=== PATIENT | female | born 1945 | race Caucasian/White ===

== ENCOUNTER 2020-07-27 10:42 | Outpatient (CLI) | payer OTHER, SELFPAY ==
--- NOTE | ~2020-07-27 | MR_ITS ---
EXAMINATION: MR lumbar spine wo con DATE: 07/27/2020 11:39 INDICATION: Low back pain. TECHNIQUE: Magnetic resonance imaging (MRI) of the lumbar spine was performed without intravenous con trast. Sequences included sagittal T2-weighted FSE, sagittal T2-weighted FS FSE, sagittal T1-weighted FSE, and axial T2-weighted FSE. COMPARISON: Lumbar spine MRI 10/25/2013 FINDINGS: There is 3 degrees dextrocurvature of lumbar spine and 6 degrees dextrocurvature of thoraco lumbar spine. There is 3 mm anterolisthesis of L4 on L5 and 3 mm retrolisthesis of L1 on L2, L2 on L3 , and L3 on L4. There is a chronic burst fracture of T11 with 3/5 loss of height and retropulsion of bone 2 mm into central spinal canal. There is moderately decreased disc height at L1-L2, L2-L3, and L 4-L5 and severely decreased disc height at L3-L4 and L5-S1. The distal spinal cord signal intensity i s normal. The conus medullaris is at T12-L1. The following disc levels are specifically discussed: L1-L2: The disc is bulging and has an annular fissure. There is mild bilateral facet joint osteoarthr itis. There is moderate right and mild left neural foraminal stenosis. There is mild central canal st enosis. L2-L3: The disc is bulging and has an annular fissure. There is moderate bilateral facet joint osteoa rthritis. There is mild right and moderate left neural foraminal stenosis. There is mild central elda l stenosis. L3-L4: The disc is bulging and has an annular fissure. There is mild right and severe left facet join t osteoarthritis. There is mild right and moderate left neural foraminal stenosis. There is mild cent ral canal stenosis. L4-L5: The disc is bulging with superimposed left subarticular extrusion with mass effect on left L5 nerve root in left lateral recess. There is severe bilateral facet joint osteoarthritis. There is mod erate bilateral neural foraminal stenosis. There is mild central canal stenosis. L5-S1: The disc is bulging and has an annular fissure. There is moderate bilateral facet joint osteoa rthritis. There is mild bilateral neural foraminal stenosis. There is no central canal stenosis with posterior decompression. IMPRESSION: 1. Worsened severe lumbar spondylosis. Of note, a new extrusion at L4-L5 exerts mass effect on left L 5 nerve root. Reviewed, dictated and finalized at location A. OM HARVESTER IMPRESSION: 1. Worsened severe lumbar spondylosis. Of note, a new extrusion at L4-L5 exerts mass effect on left L5 nerve root.
== END 2020-07-27 10:43 | disposition home or self-care (01) ==
PROVIDERS: PCP Family Medicine Adolescent Medicine; Visit Provider Orthopaedic Surgery
DX: M47.817 Spondylosis without myelopathy or radiculopathy, lumbosacral region (principal); M48.07 Spinal stenosis, lumbosacral region
CPT/HCPCS: 72148

== ENCOUNTER 2021-02-07 13:46 | Outpatient (CLI) | payer OTHER, SELFPAY ==
--- NOTE | ~2021-02-07 | DEXA_ITS ---
Bone Density Report Name: Tiera Lobato Age: 75 Sex: Female Ethnicity: White Date of : 1945 Indication: osteopenia; monitoring treatment; height loss; prior fracture; Referring Provider: Terence, Maxx Salgado Study: Bone densitometry was performed. Exam Date: February 07, 2021 Accession number: [id number] Bone Density: Region BMD T-score Z-score Classification AP Spine (L1-L4) 0.995 -0.5 1.9 Normal Femoral Neck (Left) 0.562 -2.6 -0.5 Osteoporosis Total Hip (Left) 0.639 -2.5 -0.7 Osteoporosis Total Hip Bilateral Avg 0.639 -2.5 -0.7 Osteoporosis Femoral Neck (Right) 0.591 -2.3 -0.3 Osteopenia Total Hip (Right) 0.638 -2.5 -0.7 Osteoporosis World Health Organization criteria for BMD impression classify patients as: Normal (T-score at or above -1.0), Osteopenia (T-score between -1.0 and -2.5), or Osteoporosis (T-score at or below -2.5). 10-year Fracture Risk: FRAX not reported because: Some T-score for Spine Total or Hip Total or Femoral Neck at or below -2.5 Prior hip or vertebral fracture Treated for osteopor Previous Exams: Region Exam Age BMD T-score BMD Change BMD Change Date g/cm2 vs Baseline vs Previous AP Spine(L1-L4) 02/07/2021 75 0.995 -0.5 0.065(7.0%)# 0.065(7.0%)# 04/04/2006 60 0.930 -1.1 Total Hip(Left) 02/07/2021 75 0.639 -2.5 -0.067(-9.5%)# -0.067(-9.5%)# 04/04/2006 60 0.706 -1.9 Total Hip(Right) 02/07/2021 75 0.638 -2.5 -0.080(-11.1%) -0.080(-11.1%) 04/04/2006 60 0.718 -1.8 *Denotes significance at 95% confidence level, LSC for AP Spine = 0.022 g/cm2, LSC for Total Hip = 0.027 g/cm2 Clinical Information Provided by Patient: Have had a previous hip or vertebral fracture Has had a low trauma fracture Is being treated for osteoporosis Has used the following medications: Fosamax (i.e. alendronate), Vitamin D, Calcium Patient maximum height was 65 Menopause Age: 53 Does not regularly consume dairy products Onset of menses at age 13 Number of children 3 Impression: The patient has established osteoporosis, based on the Left Femoral Neck T-score and the existence of a prior fracture. The patient has risk factors, including: previous fracture. No significant bone loss was observed. Discussion: PATIENT UNDER TREATMENT WITH NO SIGNIFICANT BMD LOSS SINCE LAST EXAM. In an untreated patient, BMD typically declines with age. A lack of decline or gain is usually a sign that treatment is efficacious and fracture risk
== END 2021-02-07 13:47 | disposition home or self-care (01) ==
PROVIDERS: PCP Family Medicine Adolescent Medicine; Visit Provider Neurological Surgery
DX: M85.88 Other specified disorders of bone density and structure, other site (principal); M81.0 Age-related osteoporosis without current pathological fracture
CPT/HCPCS: 77080

== ENCOUNTER 2022-04-01 21:33 | Inpatient (IN) | payer OTHER, MEDICAID, SELFPAY ==
--- NOTE | ~2022-04-01 | US_ITS ---
EXAMINATION: US venous doppler [facility] DATE: 04/02/2022 17:35 INDICATION: Bilateral lower limb pain and swelling TECHNIQUE: Doe scale images without and with compression and Doppler images of the bilateral lower e xtremity veins were obtained. COMPARISON: 10/17/2017 FINDINGS: The right common femoral vein, profunda femoral vein, femoral vein, popliteal vein, peroneal trunk, p osterior tibial veins, and greater saphenous vein are patent. The left common femoral vein, profunda femoral vein, femoral vein, popliteal vein, peroneal trunk, po sterior tibial veins, and greater saphenous vein are patent. IMPRESSION: 1. Patent bilateral lower extremity veins. No evidence of deep venous thrombosis. Reviewed, dictated and finalized at location A. IMPRESSION: 1. Patent bilateral lower extremity veins. No evidence of deep venous thrombosi s.
--- NOTE | ~2022-04-01 | XR_ITS ---
EXAMINATION: XR chest 1V portable INDICATION: Shortness of breath TECHNIQUE: Portable AP chest at 0917 hours COMPARISON: 04/01/2022 FINDINGS: The lungs are free of acute opacities. No pleural effusion or pneumothorax. The heart size is normal. Median sternotomy wires and mediastinal surgical clips are seen, likely from prior coronar y artery bypass grafting. IMPRESSION: 1. No acute cardiopulmonary abnormality. Reviewed, dictated and finalized at location B.
--- NOTE | ~2022-04-01 | NM_ITS ---
EXAMINATION: NM olivier stress w perfusion DATE: 04/03/2022 12:38 INDICATION: Chest pain. TECHNIQUE: Rest images were obtained following intravenous administration of 9 mCi Tc99m tetrofosmin (Myoview). The patient was infused intravenously with Lexiscan (regadenoson). Then, 26.5 mCi Tc99m te trofosmin (Myoview) was administered intravenously, and stress images were obtained. Data was reconst ructed into short axis and horizontal and vertical long axis SPECT images. Gated SPECT images were al so obtained. COMPARISON: Myocardial perfusion imaging 10/30/2017 FINDINGS: There is no definite reversible or fixed perfusion abnormality to suggest ischemia or infar ction. There is no segmental wall motion abnormality. Left ventricular ejection fraction measures 5 8%. IMPRESSION: 1. No definite ischemia or infarct. 2. Normal left ventricular ejection fraction measuring 58%. Reviewed, dictated and finalized at location B.
--- NOTE | ~2022-04-01 | XR_ITS ---
EXAMINATION: XR chest 2V Exam Date/Time: 04/01/2022 21:51 CDT HISTORY: chest pain that radiates into back xtoday. Comparison: 10/29/2017. RESULT: Lines, tubes, and devices: Intact sternotomy wires, ostial markers, mediastinal, and bilateral upper quadrant surgical clips. Lungs and pleura: Senescent changes. Streaky bibasilar opacities. Cardiomediastinal silhouette: Stable. Other: No acute osseous or upper abdominal finding. IMPRESSION: No acute cardiopulmonary process. Bibasilar scar/atelectasis. Reviewed, dictated and finalized at location K.
--- NOTE | 2022-04-01 21:33 | ECG_ITS ---
Measurements Intervals [place] Rate: 65 P: 74 MO: 184 QRS: 22 QRSD: 106 T: 122 QT: 418 QTc: 436 Interpretive Statements SINUS RHYTHM ST DEVIATION AND MODERATE T-WAVE ABNORMALITY, CONSIDER ANTEROLATERAL ISCHEMIA [-0.1+ mV T-WAVE IN V3-V6] ABNORMAL ECG NO PREVIOUS ECG AVAILABLE FOR COMPARISON Electronically Signed On 04-02-2022 14:05:51 CDT by Archie Orellana M.D.
[2022-04-01 21:36] VITALS: BP 149/70; PULSE 71; RESP 18; TEMP 36.7; O2SAT 98
--- NOTE | 2022-04-01 21:40 | ED.CHESTPAIN ---
HPI - Chest Pain General Chief Complaint: Chest Pain Stated Complaint: SUDDEN ONSET CP & SOB History of Present Illness HPI narrative: 76-year-old female with history of hypertension, high cholesterol, chronic kidney disease, coronary artery disease and CABG presents emerged department for evaluation of chest pain. Patient states this morning she had approximately 10 minutes of back pain, patient also reports that she was just feeling off for the majority of the day patient states his pain resolved with rest. Patient states she did begin to feel improved towards this evening. Patient was resting and watching TV when she had onset of substernal chest pain approximate 1 hour prior to arrival. Patient called EMS and was treated with an aspirin and nitro. Patient reports that the chest pain was improved after nitro. Upon arrival to the emergency department patient is denying any back pain. Patient states she does still have some chest pressure. Patient denies any associated shortness of breath, nausea vomiting diarrhea. Patient denies any recent coughs colds or fevers. Patient reports she had the CABG in 2012. Patient has since had follow-up with cardiology at [facility] she has had a recent negative nuc med study and has no stents since the CABG. Related Data Home Medications Medication Instructions Recorded Confirmed atorvastatin 80 mg tablet 80 mg PO DAILY 10/19/21 04/02/22 sertraline 100 mg tablet 50 mg PO DAILY 10/19/21 04/02/22 gabapentin 300 mg capsule 600 mg PO QID 02/14/22 04/02/22 acetaminophen 500 mg tablet 1,000 mg PO Q6H PRN Pain 04/02/22 04/02/22 (Tylenol Extra Strength) aspirin 81 mg chewable tablet 81 mg PO DAILY 04/02/22 04/02/22 ezetimibe 10 mg tablet 10 mg PO DAILY 04/02/22 04/02/22 linaclotide 145 mcg capsule 145 mcg PO DAILY PRN Constipation 04/02/22 04/02/22 (Linzess) lisinopril 5 mg tablet 5 mg PO DAILY 04/02/22 04/02/22 Allergies Allergy/AdvReac Type Severity Reaction Status Date / Time codeine Allergy Unknown shortness Verified 04/01/22 23:58 of breath Latex, Natural Rubber Allergy Unknown SKIN Verified 04/01/22 23:58 IRRITATION tramadol AdvReac Mild Nausea and Verified 04/01/22 23:58 Vomiting, HEADACHE, DIZZINESS Review of Systems Review of Systems: CONSTITUTIONAL: Denies fever, chills, or sweats. EYES: Denies visual changes, redness, or discharge. ENT: Denies rhinorrhea, congestion, sore throat, or otalgia. CARDIOVASCULAR: See HPI RESPIRATORY: Denies cough or dyspnea. GASTROINTESTINAL: Denies abdominal pain, nausea, vomiting, or diarrhea. GENITOURINARY: Denies dysuria or hematuria. SKIN: Denies rash or itching. MUSCULOSKELETAL: Denies back pain, joint pain, or myalgia. NEUROLOGIC: Denies headache, numbness, or weakness. [facility] Past Medical History Medical History Compression fracture of thoracic spine, non-traumatic T11 2017 Surgical History Surgical History History of lumbar surgery 1998 History of total right knee replacement 2017 Family History Family History (Updated 04/02/22 @ 03:03 by Melanie Johnson RN) Father Malignant neoplasm of prostate Mother Alzheimer's dementia Sibling Alzheimer's dementia Social History Social History (Updated 02/14/22 @ 13:06 by Clarita Vargas MA) Smoking status: Never smoker Second hand tobacco smoke exposure: No Alcohol intake: never Substance use: never Substance use type: does not use Gender identity (if verbalized by the patient): Female Spiritual care concerns: No Agree to blood products: Yes Has the Lack of Transportation Kept You From Medical Appointments or From Getting Medications?: Yes Within the Past 12 Months, Were You Worried Whether Your Food Would Run Out Before You Got Money to Buy More?: Never True What is Your Housing Situation Today?: I Have Housing
[2022-04-01] MEDS: MORPHINE SULFATE (*CRX) 2 MG/ML INJ IV PUSH (22:03)
[2022-04-01 22:19] LABS: Basophils Percent Auto 0.7 % (0.2-1.2); Eosinophils Absolute Auto 0.2 K/mm3 (0-0.3); Hematocrit 32.2 % (37.0-47.0); Hemoglobin 10.2 g/dL (12.0-15.0); Immature Granulocyte Absolute 0.01 K/mm3 (0.00-0.031); Immature Granulocyte Percent A 0.2 % (0-0.5); Lymphocytes Absolute Auto 1.53 K/mm3 (0.9-3.2); Mean Corpuscular HGB Conc 31.7 g/dl (32-36); Mean Corpuscular Hemoglobin 30.7 pg (26-34); Mean Platelet Volume 10.6 fl (7.4-10.4); Monocytes Absolute Auto 0.4 K/mm3 (0.1-0.6); Monocytes Percent Auto 7.4 % (2.6-8.5); Neutrophils Absolute Auto 3.5 K/mm3 (1.3-6.7); Neutrophils Percent Auto 61.7 % (45.5-73.1); Platelet Count Result 192 k/mm3 (150-375); Red Blood Count 3.32 M/mm3 (4.2-5.4); Red Cell Distribution Width 12.9 % (11.5-14.5); White Blood Count 5.7 K/mm3 (4.5-10.0)
[2022-04-01 22:32] LABS: Alanine Aminotransferase 64 U/L (6-35); Albumin Level 3.9 g/dL (3.5-5.1); Alkaline Phosphatase 121 U/L (38-126); Anion Gap 10 mmol/L (8-16); Aspartate Amino Transferase 161 U/L (14-36); Bilirubin,Total 0.6 mg/dL (0.2-1.3); Blood Urea Nitrogen 17 mg/dL (7-17); Calcium 9.7 mg/dL (8.4-10.2); Carbon Dioxide 28 mmol/L (22-30); Chloride 103 mmol/L (98-107); Estimated CRCL calculation 44 ml/min; Estimated Glomerular Filt Rate 54; Glucose 103 mg/dL (65-110); Sodium 141 mmol/L (137-145)
[2022-04-01 22:33] LABS: INR 1.1; Prothrombin Time 13.6 Seconds (11.1-14.7)
[2022-04-01 22:34] LABS: Partial Thromboplastin Time 43.7 SECONDS (22.3-36.8)
--- NOTE | 2022-04-01 23:09 | ECG_ITS ---
Measurements Intervals [place] Rate: 61 P: 30 NE: 178 QRS: 21 QRSD: 98 T: 129 QT: 430 QTc: 435 Interpretive Statements SINUS RHYTHM MINIMAL VOLTAGE CRITERIA FOR LVH, CONSIDER NORMAL VARIANT [MEETS CRITERIA IN ONE OF: R(aVL), S(V1), R(V5), R(V5/V6)+S(V1)] MODERATE T-WAVE ABNORMALITY, CONSIDER ANTEROLATERAL ISCHEMIA [-0.1+ mV T WAVE IN V3- V6] ABNORMAL ECG COMPARED TO ECG 04/01/2022 21:38:23 NO SIGNIFICANT CHANGES Electronically Signed On 04-02-2022 14:06:58 CDT by Archie Orellana M.D.
[2022-04-01 23:15] VITALS: PULSE 61; RESP 16
[2022-04-01 23:22] LABS: Add Urine Microscopic? YES; Appearance Urine Clear (Clear); Bilirubin Urine Negative (Negative); Color Urine Yellow (Yellow); Glucose Urine UA Negative (Negative); Ketones Urine Negative (Negative); Leukocyte Esterase Ur 1+ LEU/UL (Negative); Mucus Urine Rare /lpf; Nitrate Urine Negative (Negative); Protein Urine Negative (Negative); RBC Urine 0-2 /hpf (0-2); Specific Grav Ur 1.013 (1.001-1.035); Squamous Epithelial Cell Urine Rare /hpf (Few); WBC Urine 16-20 /hpf
[2022-04-01 23:23] LABS: Blood Urine Negative (Negative)
[2022-04-01 23:30] VITALS: PULSE 59; PULSE 78; RESP 20
[2022-04-01 23:32] LABS: SARS-CoV-2 RNA PCR Negative
[2022-04-01 23:46] VITALS: PULSE 61; RESP 19
[2022-04-02] VITALS (34 sets, daily range): BP systolic 123–168; BP diastolic 47–81; PULSE 58–79; RESP 13–21; TEMP 36.4–37.4; O2SAT 95–100; BMI 31.2
--- NOTE | 2022-04-02 | ECHO_ITS ---
Patient Info Name: Tiera Lobato Age: 76 years : 1945 Gender: Female Ht: 64 in Wt: 181 lbs BSA: 1.95 m2 HR: 58 bpm BP: 145 / 61 mmHg Heart Rhythm: Sinus Rhythm Exam Date: 04/02/2022 9:43 AM Exam Location: [facility] Patient Status: Inpatient Admit Date: 04/02/2022 Staff Ordering Physician: Yaneli Perry MD System Designer: Garo Domínguez RDCS, RT Attending Provider: Shirley Newsome DO Exam Type: CA echo dop color flow w con Study Info Complete two-dimensional, color flow and Doppler transthoracic echocardiogram is performed with contrast to opacify the left ventricle and to improve the deliniation of the left ventricle endocardial borders. Strain analysis performed. Contrast/Agitated Saline Contrast/Ag. Saline: Definity Amount: 4.00 ml Administered By: Garo Domínguez RDCS Existing IV Access: Yes IV Access Condition: patent with no signs of infiltration Site Condition: No extravasation Summary 1. Thickening of the left ventricular apex and apical wall segments. 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 2. Left ventricular chamber dimension is mildly enlarged. 3. Left ventricular systolic function is hyperdynamic, estimated at >70%. 4. There is mildly increased left ventricular wall thickness. 5. The left ventricular diastolic function is abnormal. 6. Global longitudinal strain is abnormal at -11 %. 7. Left atrial chamber dimension is moderately enlarged. 8. Right atrial chamber dimension is mildly enlarged. 9. There is mild aortic valve regurgitation. 10. There is mild mitral valve regurgitation. 11. There is mild tricuspid valve regurgitation. Left Ventricle Thickening of the left ventricular apex and apical wall segments. 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 Left ventricular chamber dimension is mildly enlarged. Left ventricular systolic function is hyperdynamic, estimated at >70%. There is mildly increased left ventricular wall thickness. The left ventricular diastolic function is abnormal. Global longitudinal strain is abnormal at -11 %. Right Ventricle Right ventricular chamber dimension is normal. Right ventricular systolic function is normal. Left Atria Left atrial chamber dimension is moderately enlarged. Right Atria Right atrial chamber dimension is mildly enlarged. Atrial Septum Intact interatrial septum visualized by color flow imaging. Aortic Valve The aortic valve is trileaflet. There is mild aortic valve sclerosis. There is no aortic valve stenosis. There is mild aortic valve regurgitation. Pulmonic Valve The pulmonic valve is normal. There is no pulmonic valve stenosis. There is trace pulmonic regurgitation. Mitral Valve The mitral valve has calcified annulus. There is no mitral valve stenosis. There is mild mitral valve regurgitation. Tricuspid Valve The tricuspid valve leaflets are normal. There is no significant tricuspid valve stenosis. There is mild tricuspid valve regurgitation. Pericardium/Pleural The pericardium appears normal. There is no pericardial effusion. Inferior Vena Cava Normal inferior vena cava with <50% collapse upon inspiration consistent with elevated right atrial pressure, 10 mmHg. Aorta The aortic root size at the sinus of Valsalva is normal. Left Ventricular Outflow Tract
[2022-04-02] MEDS: HEPARIN SODIUM 5,000 UNITS/ML VIAL 4000 UNITS IV PUSH ×2 (00:21→15:33)
[2022-04-02] MEDS: HEPARIN SOD/D5W 100 UNITS/ML 25,000 UNITS/250 ML BAG 8 UNITS IV CONT (00:23)
[2022-04-02 01:49] LABS: Troponin I 0.154 ng/mL (0.000-0.034)
--- NOTE | 2022-04-02 02:45 | ADMGEN ---
This patient, Tiera Lobato, was admitted to IMU Room 200-01 on 04/02/22 at 0225. Patient/family oriented to hospital policies and general routines including ID bracelet, bed and alarms, visiting hours, pain management, procedures, bathroom and other care routines, personal items, smoking policy, room service/diet, and visiting hours. Information on how to activate the Rapid Response Team has been discussed. Patient/Family are encouraged to report perceived risks to care and to ask questions if they do not understand what they are told or what they should do.
[2022-04-02 04:53] LABS: Basophils Percent Auto 0.5 % (0.2-1.2); Eosinophils Absolute Auto 0.2 K/mm3 (0-0.3); Eosinophils Percent Auto 2.7 % (0-4.4); Hemoglobin 9.6 g/dL (12.0-15.0); Immature Granulocyte Absolute 0.02 K/mm3 (0.00-0.031); Immature Granulocyte Percent A 0.3 % (0-0.5); Lymphocytes Absolute Auto 1.63 K/mm3 (0.9-3.2); Lymphocytes Percent Auto 26.1 % (18.3-44.2); Mean Corpuscular Hemoglobin 31.4 pg (26-34); Mean Platelet Volume 11.6 fl (7.4-10.4); Monocytes Absolute Auto 0.6 K/mm3 (0.1-0.6); Monocytes Percent Auto 9.1 % (2.6-8.5); Neutrophils Absolute Auto 3.8 K/mm3 (1.3-6.7); Neutrophils Percent Auto 61.3 % (45.5-73.1); Platelet Count Result 172 k/mm3 (150-375); Red Blood Count 3.06 M/mm3 (4.2-5.4); White Blood Count 6.2 K/mm3 (4.5-10.0)
[2022-04-02] MEDS: NITROGLYCERIN OINTMENT 1 INCH DOSE TRANSDERM (05:00)
[2022-04-02 05:23] LABS: Troponin I 0.129 ng/mL (0.000-0.034)
[2022-04-02 06:47] LABS: Partial Thromboplastin Time 176.7 SECONDS (22.3-36.8)
--- NOTE | 2022-04-02 07:15 | PM.IMHP ---
H&P: HPI History of Present Illness Date/Time: 04/02/22 0715 Chief Complaint: Chest pain Narrative: Patient is 76-year-old female with a past medical history of CABG x2, hypertension, hyperlipidemia, anxiety who presented to the ED with complaints of chest pain. Patient stated that it all started about 6:00 a.m. last night and the pain lasted for about 10 has however she felt dizzy and just yuck for quite of while after that. patient stated that she was having lightheadedness and dizziness. She denies any palpitations or racing. She stated that she really did not take anything however she was experiencing shortness of breath and did try to lay down to try to get to relieve. She stated that it was epigastric and upper chest stabbing pain. Patient stated that she was getting very dizzy and is having horrible pain which prompted her to come back in. Earlier in the day about 10 30 the patient was having back pain that started at her waist and went all the way up. She also became very dizzy and lightheaded at that time. She also did lay down at that time with no relief of symptoms. She denies any visual changes or hearing changes. She denies any sweats, fevers, chills, nausea, vomiting, diarrhea, constipation, syncope or falls. It is noted that the patient does have elevated troponins and her liver enzymes are also elevated. Patient does follows with Dr. Ordaz at [place]. EKG does not show any true real changes or ST elevations at this time. Patient currently does not have any chest pain in the was no acute arrhythmia is noted overnight. Patient is resting comfortably at this moment. Patient is being admitted to the hospital services and patient Review of Systems Review of Systems: All systems reviewed & are unremarkable except as noted in HPI and below [facility] Past Medical History Medical History Bowel perforation Compression fracture of thoracic spine, non-traumatic T11 2017 Hyperlipidemia Hypertension Surgical History Surgical History History of lumbar surgery 1998 History of total right knee replacement 2018 S/P CABG x 2 S/P cholecystectomy Family History Family History Father Malignant neoplasm of prostate Mother Alzheimer's dementia Sibling Alzheimer's dementia Social History Social History Social History: Patient lives in the assisted living. Her son Storm is her surrogate. She has three kids, and 4 grandkids. She denies having a pet. She was and her last Jul from recurrent polio infection and acute brain bleed. 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 Gender identity (if verbalized by the patient): Female Spiritual care concerns: No Agree to blood products: Yes Has the Lack of Transportation Kept You From Medical Appointments or From Getting Medications?: Yes Within the Past 12 Months, Were You Worried Whether Your Food Would Run Out Before You Got Money to Buy More?: Never True What is Your Housing Situation Today?: I Have Housing Are You Worried That in the Next 2 Months, You May Not Have Your Own Housing to Live In?: No Do You Have Trouble Paying Your Heating Or Electricity Bill?: No Do You Have Trouble Paying For Medicines?: No Are You Currently Unemployed and Looking for Work?: No Highest Level of Education Completed: High School Diploma/GED Do You Have Trouble With Childcare or the Care of a Family Member?: No Meds Home Medications and Allergies Home Medications Medication Instructio
[2022-04-02 07:18] LABS: Alanine Aminotransferase 72 U/L (6-35); Albumin Level 3.6 g/dL (3.5-5.1); Alkaline Phosphatase 138 U/L (38-126); Anion Gap 8 mmol/L (8-16); Aspartate Amino Transferase 106 U/L (14-36); Bilirubin,Total 0.5 mg/dL (0.2-1.3); Blood Urea Nitrogen 22 mg/dL (7-17); Calcium 9.5 mg/dL (8.4-10.2); Carbon Dioxide 24 mmol/L (22-30); Chloride 107 mmol/L (98-107); Cholesterol 139 mg/dL (0-200); Estimated CRCL calculation 45 ml/min; Estimated Glomerular Filt Rate 54; Glucose 98 mg/dL (65-110); HDL Direct 45 mg/dL; Potassium 4.1 mmol/L (3.4-5.0); Sodium 139 mmol/L (137-145); Triglycerides 104 mg/dL (<150)
[2022-04-02 07:18] LABS: Iron 42 ug/dL (37-170)
[2022-04-02 07:30] LABS: LDL Cholesterol Direct 73 mg/dL; Transferrin 226 mg/dL (206-381)
[2022-04-02 07:33] LABS: Percent Iron Saturation 14 % (20-50)
[2022-04-02 08:30] LABS: Hepatitis B Surface Antigen Negative (Negative)
[2022-04-02] MEDS: DICLOFENAC SOD 75 MG TABLET.EC PO ×2 (08:33→16:24)
[2022-04-02] MEDS: ASPIRIN 81 MG CHEWABLE TABLET PO (08:33)
[2022-04-02] MEDS: ATORVASTATIN 40 MG TABLET 80 MG PO (08:33)
[2022-04-02] MEDS: GABAPENTIN 300 MG CAPSULE 600 MG PO ×4 (08:34→20:41)
[2022-04-02] MEDS: EZETIMIBE 10 MG TABLET PO (08:34)
[2022-04-02] MEDS: SERTRALINE HCL 50 MG TABLET PO (08:34)
[2022-04-02] MEDS: lisinopriL 5 MG TABLET PO (08:34)
[2022-04-02] MEDS: METOPROLOL SUCCINATE EXT REL 12.5 MG TABCR PO (08:34)
[2022-04-02 08:36] LABS: HAV RESULT Negative (Negative); Hepatitis B Core IgM Result Negative (Negative)
[2022-04-02 08:48] LABS: Hepatitis C Virus Antibody Negative (Negative)
[2022-04-02] MEDS: PERFLUTREN LIPID MICROSPHERES 1.5 ML VIAL DILUTED TO 10 ML TOTAL VOLUME IV PUSH (09:45)
--- NOTE | 2022-04-02 09:46 | IVDEFINITY ---
Prior to administration of IV Definity the patient was educated on the risks and benefits of the imaging enhancing agent including potential adverse side effects. The patient verbalized understanding. Allergies were verified. No exclusion criteria were identified and at least one of the following inclusion criteria were met: 1) physician request, 2) patient technically difficult to image (per the [place] [employer] guidelines of two or more segments not discernable within the apical view), or 3) questionable left ventricular function. ?
[2022-04-02] MEDS: TICAGRELOR 90 MG TABLET 180 MG PO (10:14)
--- NOTE | 2022-04-02 10:46 | PM.CNCAR ---
Assessment and Plan Assessment and plan (1) Hypertension: Code(s): I10 - Essential (primary) hypertension Status: Acute (2) Hyperlipidemia: Code(s): E78.5 - Hyperlipidemia, unspecified Status: Acute (3) Acute non-ST elevation myocardial infarction (NSTEMI): Code(s): I21.4 - Non-ST elevation (NSTEMI) myocardial infarction Status: Acute (4) Age-related osteoporosis without current pathological fracture: Onset Date: ~11/2017 Code(s): M81.0 - Age-related osteoporosis without current pathological fracture Status: Acute (5) Presence of aortocoronary bypass graft: Onset Date: ~2012 Code(s): Z95.1 - Presence of aortocoronary bypass graft Status: Acute Plan Will treat as Type 1 NSTEMI with Heparin drip x 48 hours, ASA, high-intensity statin. On low-dose Metoprolol at home, will increase dose. Load with Brilinta 180mg x 1 and continue 90mg BID. Discussed cardiac catheterization with the patient, including procedural details, risks vs benefits, and alternative management strategies. Patient states she is not sure if she wants to undergo invasive procedure at this time. Will obtain a transthoracic echocardiogram to assess LVEF and for any regional wall motion abnormalities. Further recommendations pending result of echo. History of Present Illness History of Present Illness Consult date/time: 04/02/22 10:46 Requesting physician: Maxx Huang MD Consult reason: chest pain Reason For Visit: NSTEMI Narrative: Patient is a 76-year-old female with a history of CAD s/p 2-V CABG (LAWSON-LAD and SVG-OM) in 2012, hypertension, hyperlipidemia, who presented from her assisted living facility with chest pain. Patient reports that she was experiencing dizziness earlier in the day with some back pain. Later that evening, around 6PM or so, she developed substernal chest pain that felt like pressure. No radiation of pain. Pain lasted until 10PM or so. States she had some mild chest pain upon arrival to the ER - improved with NTG. No shortness of breath or other associated symptoms. Patient states she was resting when the chest pain started. Patient is currently chest pain free this AM. Patient's primary Ceo & Board Director is Dr. Stafford at [facility]. EKGs show sinus rhythm, T-wave abnormalities in the anterolateral leads (this was present on old EKG from 2019 - her [facility] records reviewed). Troponins here mildly elevated at 0.140 --> 0.154 --> 0.129 Per her [facility] notes, patient underwent CABG in 2012 for NSTEMI. Patient tells me that she did not have chest pain at that time, it was left arm pain instead. Review of Systems Review of Systems: All systems reviewed & are unremarkable except as noted in HPI and below (HPI) FORMERLY [facility], [facility] Past Medical History Medical History Bowel perforation Compression fracture of thoracic spine, non-traumatic T11 2017 Hyperlipidemia Hypertension Surgical History Surgical History History of lumbar surgery 1998 History of total right knee replacement 2018 S/P CABG x 2 S/P cholecystectomy Family History Family History Father Malignant neoplasm of prostate Mother Alzheimer's dementia Sibling Alzheimer's dementia Social History Social History Social History: Patient lives in the assisted living. Her son Storm is her surrogate. She has three kids, and 4 grandkids. She denies having a pet. She was and her last Jul from recurrent polio infection and acute brain bleed. 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
[2022-04-02] MEDS: TICAGRELOR 90 MG TABLET PO (20:41)
[2022-04-02 22:26] LABS: Partial Thromboplastin Time 164.5 SECONDS (22.3-36.8)
[2022-04-03] VITALS (19 sets, daily range): BP systolic 127–182; BP diastolic 53–76; PULSE 59–92; RESP 16–20; TEMP 36.1–36.8; O2SAT 96–99
--- NOTE | 2022-04-03 | EST_ITS ---
Patient Info Name: Tiera Lobato Age: 76 years : 1945 Gender: Female Ht: 64 in Wt: 181 lbs BSA: 1.95 m2 BP: 195 / 100 mmHg Exam Date: 04/03/2022 10:56 AM Exam Location: [facility] Stress Patient Status: Inpatient Admit Date: 04/02/2022 Staff Ordering Physician: Yaneli Perry MD Attending Provider: Shirley Newsome DO Exercise Technologist: Garo Domínguez RDCS, RT Exercise Physician: Archie Orellana MD Exam Type: CA stress olivier w NM Study Info A regadenoson stress test was performed. Summary 1. Please correlate with nuclear medicine images, reported separately. 2. No abnormal ST-T wave changes with lexiscan. Protocol: Lexiscan Stress ECG Details Stage: REST Duration (min): 2 min : 14 sec HR (bpm): 81 SBP (mmHg): 197 DBP (mmHg): 102 Stage: REST Duration (min): 3 min : 50 sec HR (bpm): 82 SBP (mmHg): 195 DBP (mmHg): 100 Stage: STAGE 1 Duration (min): 0 min : 59 sec HR (bpm): 104 SBP (mmHg): 195 DBP (mmHg): 100 Stage: RECOVERY Duration (min): 1 min : 0 sec HR (bpm): 111 SBP (mmHg): 210 DBP (mmHg): 85 Stage: RECOVERY Duration (min): 2 min : 0 sec HR (bpm): 110 SBP (mmHg): 210 DBP (mmHg): 85 Stage: RECOVERY Duration (min): 3 min : 0 sec HR (bpm): 107 SBP (mmHg): 193 DBP (mmHg): 87 Stage: RECOVERY Duration (min): 4 min : 0 sec HR (bpm): 103 SBP (mmHg): 193 DBP (mmHg): 87 Stage: RECOVERY Duration (min): 4 min : 7 sec HR (bpm): 104 SBP (mmHg): 193 DBP (mmHg): 87 Rest HR: 82 bpm Peak HR: 113 bpm Rest Sys BP: 195 mmHg Peak Sys BP: 210 mmHg Max Pred HR: 145 bpm % Max Pred HR: 78 % Target HR: 123 bpm Max RPP: 23,730 bpm*mmHg BP Response: Normal blood pressure response Termination Reason: Completed protocol Cardiac Symptoms: None Total Time: 1 min : 0 sec Rest Calvin BP: 100 mmHg Peak Calvin BP: 85 mmHg Total Dose: 0.4 mg Resting ECG Normal sinus rhythm. Meets criteria for left ventricular hypertrophy. Nonspecific T-wave abnormality, Pac. Stress ECG No abnormal ST/T wave changes with Lexiscan. Arrhythmias Frequent PACs. Report Signatures
[2022-04-03 06:05] LABS: Basophils Percent Auto 0.5 % (0.2-1.2); Eosinophils Absolute Auto 0.1 K/mm3 (0-0.3); Eosinophils Percent Auto 1.2 % (0-4.4); Hematocrit 32.7 % (37.0-47.0); Hemoglobin 10.7 g/dL (12.0-15.0); Immature Granulocyte Absolute 0.01 K/mm3 (0.00-0.031); Immature Granulocyte Percent A 0.2 % (0-0.5); Lymphocytes Absolute Auto 0.88 K/mm3 (0.9-3.2); Lymphocytes Percent Auto 20.5 % (18.3-44.2); Mean Corpuscular HGB Conc 32.7 g/dl (32-36); Mean Corpuscular Volume 94.8 fl (80-100); Mean Platelet Volume 10.8 fl (7.4-10.4); Monocytes Absolute Auto 0.6 K/mm3 (0.1-0.6); Monocytes Percent Auto 13.8 % (2.6-8.5); Neutrophils Absolute Auto 2.7 K/mm3 (1.3-6.7); Neutrophils Percent Auto 63.8 % (45.5-73.1); Platelet Count Result 186 k/mm3 (150-375); Red Blood Count 3.45 M/mm3 (4.2-5.4); White Blood Count 4.3 K/mm3 (4.5-10.0)
[2022-04-03 06:17] LABS: Partial Thromboplastin Time 59.1 SECONDS (22.3-36.8)
[2022-04-03 06:31] LABS: Alanine Aminotransferase 59 U/L (6-35); Albumin Level 4.2 g/dL (3.5-5.1); Alkaline Phosphatase 119 U/L (38-126); Anion Gap 9 mmol/L (8-16); Aspartate Amino Transferase 56 U/L (14-36); Bilirubin,Total 0.8 mg/dL (0.2-1.3); Blood Urea Nitrogen 13 mg/dL (7-17); Calcium 9.7 mg/dL (8.4-10.2); Carbon Dioxide 24 mmol/L (22-30); Chloride 104 mmol/L (98-107); Estimated CRCL calculation 50 ml/min; Estimated Glomerular Filt Rate > 60; Glucose 107 mg/dL (65-110); Magnesium 1.7 mg/dL (1.6-2.3); Potassium 4.2 mmol/L (3.4-5.0); Sodium 137 mmol/L (137-145)
[2022-04-03] MEDS: HEPARIN SODIUM 5,000 UNITS/ML VIAL 2500 UNITS IV PUSH (06:36)
[2022-04-03] MEDS: MAGNESIUM SULF 2 GM/WATER 50ML 2 GM/50 ML BAG IVPB (09:22)
[2022-04-03] MEDS: GABAPENTIN 300 MG CAPSULE 600 MG PO ×4 (09:22→21:59)
[2022-04-03] MEDS: ASPIRIN 81 MG CHEWABLE TABLET PO (09:22)
[2022-04-03] MEDS: EZETIMIBE 10 MG TABLET PO (09:22)
[2022-04-03] MEDS: ATORVASTATIN 40 MG TABLET 80 MG PO (09:22)
[2022-04-03] MEDS: DICLOFENAC SOD 75 MG TABLET.EC PO ×2 (09:22→17:16)
[2022-04-03] MEDS: lisinopriL 5 MG TABLET PO (09:23)
[2022-04-03] MEDS: METOPROLOL SUCCINATE EXT REL 25 MG TABCR PO (09:23)
[2022-04-03] MEDS: SERTRALINE HCL 50 MG TABLET PO (09:23)
[2022-04-03] MEDS: TICAGRELOR 90 MG TABLET PO ×2 (09:24→21:59)
--- NOTE | 2022-04-03 09:31 | PC.NURSE ---
Patient transported downstairs at 0932 by manager of transportation for stress test.
--- NOTE | 2022-04-03 11:24 | PM.PNCARD ---
Progress Note: A&P Assessment and Plan (1) Hypertension: Code(s): I10 - Essential (primary) hypertension Status: Acute Assessment and Plan: Elevated. Will give her lisinopril 10 mg p.o. x1 (2) Hyperlipidemia: Code(s): E78.5 - Hyperlipidemia, unspecified Status: Acute (3) Acute non-ST elevation myocardial infarction (NSTEMI): Code(s): I21.4 - Non-ST elevation (NSTEMI) myocardial infarction Status: Acute (4) Age-related osteoporosis without current pathological fracture: Onset Date: ~11/2017 Code(s): M81.0 - Age-related osteoporosis without current pathological fracture Status: Acute (5) Presence of aortocoronary bypass graft: Onset Date: ~2012 Code(s): Z95.1 - Presence of aortocoronary bypass graft Status: Acute Plan Will treat as Type 1 NSTEMI with Heparin drip x 48 hours, ASA, high-intensity statin. On low-dose Metoprolol at home. Continue Brilinta Will await Lexiscan results. If moderate to large defect, will consider coronary angiogram here. If small to moderate defect or even normal, will discharge she will follow-up with the primary automotive service professional at [facility]. Subjective Date/time seen: 04/03/22 11:24 Interval history: ? Patient is 76-year-old female with a past medical history of CABG x2, hypertension, hyperlipidemia, anxiety who presented to the ED with complaints of chest pain.? Patient stated that it all started about 6:00 a.m. last night and the pain lasted for about 10 has however she felt dizzy and just yuck for quite of while after that. patient stated that she was having lightheadedness and dizziness.? Date of service 04/03/2022: Seen in the stress lab. Patient denies any chest pain or shortness of breath. Review of Systems Constitutional: Constitutional: Denies body ache(s) ENT: Reports Normal hearing present Cardiovascular: Cardiovascular: Denies chest pain and Denies diaphoresis Respiratory: Respiratory: Denies dyspnea Gastrointestinal: Gastrointestinal: Denies abdominal pain Musculoskeletal: Musculoskeletal: Denies back pain Integumentary/Breasts: Skin/Breast: Denies skin pain Psychiatric: Psychiatric: Denies anxiety Hematologic/Lymphatic: Hematologic/Lymphatic: Denies easy bleeding Exam Const: General: comfortable and no acute distress HENMT: Face/Nose/Sinus: Normal nares present Eyes: General: appearance normal, both eyes and all related structures Neck: Neck: no JVD Resp: Effort & Inspection: normal respiratory effort Auscultation: clear to auscultation bilaterally Cardio: Rate: regular rate Rhythm: regular rhythm Heart sounds: no murmurs Skin: General skin exam: normal color Neuro: Speech: normal speech Psych: Mental Status: mental status grossly normal Objective Data Vital Signs Vital Signs: Vital Signs - 24 hr 04/02/22 11:47 04/02/22 11:56 04/02/22 12:26 Temperature 36.7 C Pulse Rate 67 Respiratory Rate 18 Blood Pressure 133/47 L Pulse Oximetry 98 97 Oxygen Delivery Room Air Room Air 04/02/22 12:00 04/02/22 14:00 04/02/22 15:40 Temperature Pulse Rate 64 68 Respiratory Rate Blood Pressure Pulse Oximetry Oxygen Delivery Room Air 04/02/22 16:00 04/02/22 16:33 04/02/22 17:25 Temperature 37.4 C Pulse Rate 70 68 68 Respiratory Rate 20 Blood Pressure 168/66 H Pulse Oximetry 100 Oxygen Delivery 04/02/22 20:00 04/02/22 20:00 04/02/22 23:54 Temperature 36.4 C 37.1 C Pulse Rate 72 79 Respiratory Rate 20 16 Blood Pressure 124/80 165/78 H Pulse Oximetry 95 97 Oxygen Delivery Room Air 04/03/22 00:00 04/02/22 20:00 04/02/22 22:00 Temperature Pulse Rate 72 70 Respiratory Rate Blood Pressure Pulse Oximetry Oxygen Delivery Room Air 04/03/22 00:00 04/03/22 02:00 04/02/22 21:45 Temperature Pulse Rate 68 72 Respiratory Rate Blood Pressure Pulse Oximetry 97 Oxygen Delive
--- NOTE | 2022-04-03 11:44 | PC.NURSE ---
Patient back to IMU department at 1143 from cardiac stress test.
[2022-04-03] MEDS: lisinopriL 10 MG TABLET PO (11:53)
--- NOTE | 2022-04-03 12:00 | PM.IMPN ---
Progress Note: A&P Assessment and Plan (1) Acute non-ST elevation myocardial infarction (NSTEMI): Code(s): I21.4 - Non-ST elevation (NSTEMI) myocardial infarction Status: Acute Assessment and Plan: EKG no ST changes noted on EKG Trops elevated 0.140, 0.159, 0.129 Cardiology consulted thank you for your help Continue home metoprolol Echo EF >70% with abnormal diastolic dysfunction with left vent wall thickness Telemonitor Aspirin continued Brilinta loading Heparin x 48 hours History of CABG (2) Anemia: Code(s): D64.9 - Anemia, unspecified Status: Acute Assessment and Plan: H/H 10.7/32.7 Anemia labs iron 42, TIBC 297, % sat 14, Tranferrin 226, Ferritin 43.80, B12 926, folate 12 Supplement with Iron 325 mg PO daily Trend H/H transfuse if HGB <7.0 Unknown type of anemia (3) Hyperlipidemia: Code(s): E78.5 - Hyperlipidemia, unspecified Status: Acute Assessment and Plan: History noted Continue home Zetia and atorvastatin Lipid panel Cholesterol 139, Triglyceride 104, LDL 73, HDL 45 (4) Hypertension: Code(s): I10 - Essential (primary) hypertension Status: Acute Assessment and Plan: Current BP is 141/62 Continue home lisinopril and metoprolol Trend BP Adjust therapy as indicated (5) Anxiety and depression: Code(s): F41.9 - Anxiety disorder, unspecified; F32.A - Depression, unspecified Status: Acute Assessment and Plan: Continue home sertraline (6) Transaminitis: Code(s): R74.01 - Elevation of levels of liver transaminase levels Status: Acute Assessment and Plan: AST/ALT 56/59 Trend labs Hep panel negative Time Spent With Patient Time with patient: Greater than 35 minutes Subjective Date/time seen: 04/03/22 1200 Interval history: 04/03/22 1200 Patient stated that she is doing well. She did not have any chest pain overnight. The only complaint she has is still little bit of shortness of breath. She just got back from her stress test and stated that she does feel little different afterwards. She denies any chest pain, nausea, vomiting, diarrhea, constipation, weakness or fatigue. 04/02/22? 0715 ? Patient is 76-year-old female with a past medical history of CABG x2, hypertension, hyperlipidemia, anxiety who presented to the ED with complaints of chest pain.? Patient stated that it all started about 6:00 a.m. last night and the pain lasted for about 10 has however she felt dizzy and just yuck for quite of while after that. patient stated that she was having lightheadedness and dizziness.? She denies any palpitations or racing.? She stated that she really did not take anything however she was experiencing shortness of breath and did try to lay down to try to get to relieve.? She stated that it was epigastric and? upper chest stabbing pain.? Patient stated that she was getting very dizzy and is having horrible pain which prompted her to come back in.? Earlier in the day about 10 30 the patient was having back pain that started at her waist and went all the way up.? She also became very dizzy and lightheaded at that time.? She also did lay down at that time with no relief of symptoms.? She denies any visual changes or hearing changes.? She denies any sweats, fevers, chills, nausea, vomiting, diarrhea, constipation, syncope or falls.? It is noted that the patient does have elevated troponins and her? liver enzymes are also elevated.? Patient does follows with Dr. Ordaz at [facility]. ? EKG does not show any true real changes or ST elevations at this time.? Patient currently does not have any chest pain in the was no acute arrhythmia is noted overnight.? Patient is resting comfortably at this moment. ? Patient is being admitted to the hospital services and patient Review of Systems Review of Systems: All systems rev
[2022-04-03 16:18] LABS: NT Pro B Type Natriuretic Pept 1190 pg/mL (5-100)
[2022-04-03] MEDS: FUROSEMIDE INJ 40 MG/4 ML VIAL IV PUSH (17:17)
--- NOTE | 2022-04-03 22:27 | PC.NURSE ---
This patient, Tiera Lobato, was transferred to [ 316-2 ] on 04/03/22 at 2227. Personal belongings sent with patient. Report given to [enrique ]. Appropriate documentation sent with patient.
--- NOTE | 2022-04-03 22:37 | PC.NURSE ---
This patient, Tiera Lobato, transferred from to IMU Room 200-01 to med/surg 316-2. Patient/family oriented to hospital policies and general routines including ID bracelet, bed and alarms, visiting hours, pain management, procedures, bathroom and other care routines, personal items, smoking policy, room service/diet, and visiting hours. Information on how to activate the Rapid Response Team has been discussed. Patient/Family are encouraged to report perceived risks to care and to ask questions if they do not understand what they are told or what they should do. Report received from [facility]
[2022-04-04] VITALS (8 sets, daily range): BP systolic 102–150; BP diastolic 58–65; PULSE 63–70; RESP 16–20; TEMP 36.1–36.5; O2SAT 98–100
[2022-04-04 07:10] LABS: Basophils Percent Auto 0.7 % (0.2-1.2); Eosinophils Absolute Auto 0.2 K/mm3 (0-0.3); Eosinophils Percent Auto 3.5 % (0-4.4); Hematocrit 35.7 % (37.0-47.0); Hemoglobin 11.4 g/dL (12.0-15.0); Immature Granulocyte Absolute 0.01 K/mm3 (0.00-0.031); Immature Granulocyte Percent A 0.2 % (0-0.5); Lymphocytes Absolute Auto 1.19 K/mm3 (0.9-3.2); Lymphocytes Percent Auto 21.8 % (18.3-44.2); Mean Corpuscular HGB Conc 31.9 g/dl (32-36); Mean Corpuscular Hemoglobin 30.6 pg (26-34); Mean Corpuscular Volume 95.7 fl (80-100); Monocytes Absolute Auto 0.8 K/mm3 (0.1-0.6); Monocytes Percent Auto 14.5 % (2.6-8.5); Neutrophils Absolute Auto 3.2 K/mm3 (1.3-6.7); Neutrophils Percent Auto 59.3 % (45.5-73.1); Platelet Count Result 206 k/mm3 (150-375); Red Blood Count 3.73 M/mm3 (4.2-5.4); Red Cell Distribution Width 13.1 % (11.5-14.5); White Blood Count 5.5 K/mm3 (4.5-10.0)
[2022-04-04 07:17] LABS: Alanine Aminotransferase 57 U/L (6-35); Albumin Level 4.2 g/dL (3.5-5.1); Alkaline Phosphatase 116 U/L (38-126); Anion Gap 14 mmol/L (8-16); Aspartate Amino Transferase 46 U/L (14-36); Bilirubin,Total 0.6 mg/dL (0.2-1.3); Blood Urea Nitrogen 20 mg/dL (7-17); Calcium 9.6 mg/dL (8.4-10.2); Carbon Dioxide 27 mmol/L (22-30); Chloride 101 mmol/L (98-107); Estimated CRCL calculation 30 ml/min; Estimated Glomerular Filt Rate 34; Glucose 106 mg/dL (65-110); Magnesium 2.3 mg/dL (1.6-2.3); Potassium 3.8 mmol/L (3.4-5.0); Sodium 142 mmol/L (137-145)
--- NOTE | 2022-04-04 08:45 | PM.IMPN ---
Progress Note: A&P Assessment and Plan (1) Acute non-ST elevation myocardial infarction (NSTEMI): Code(s): I21.4 - Non-ST elevation (NSTEMI) myocardial infarction Status: Acute Assessment and Plan: EKG no ST changes noted on EKG Trops elevated 0.140, 0.159, 0.129 Cardiology consulted thank you for your help Continue home metoprolol Echo EF >70% with abnormal diastolic dysfunction with left vent wall thickness Telemonitor Aspirin continued Brilinta loading Heparin x 48 hours History of CABG Stress test performed and showed no abnormalities at this time (2) Anemia: Code(s): D64.9 - Anemia, unspecified Status: Acute Assessment and Plan: H/H 11.0/35.7 Anemia labs iron 42, TIBC 297, % sat 14, Tranferrin 226, Ferritin 43.80, B12 926, folate 12 Supplement with Iron 325 mg PO daily Trend H/H transfuse if HGB <7.0 Unknown type of anemia (3) Hyperlipidemia: Code(s): E78.5 - Hyperlipidemia, unspecified Status: Acute Assessment and Plan: History noted Continue home Zetia and atorvastatin Lipid panel Cholesterol 139, Triglyceride 104, LDL 73, HDL 45 (4) Hypertension: Code(s): I10 - Essential (primary) hypertension Status: Acute Assessment and Plan: Current BP is 102/58 Continue home lisinopril and metoprolol Trend BP Adjust therapy as indicated (5) Anxiety and depression: Code(s): F41.9 - Anxiety disorder, unspecified; F32.A - Depression, unspecified Status: Acute Assessment and Plan: Continue home sertraline (6) Transaminitis: Code(s): R74.01 - Elevation of levels of liver transaminase levels Status: Acute Assessment and Plan: AST/ALT 56/59 Trend labs Hep panel negative (7) CLAUDIA (acute kidney injury): Code(s): N17.9 - Acute kidney failure, unspecified Status: Acute Assessment and Plan: BUN/Cr is slightly elevated at 20/1.50 Might be from possible dehydration Give 250ml of fluid No change in labs Trend tomorrow (8) Shortness of breath: Code(s): R06.02 - Shortness of breath Status: Acute Assessment and Plan: Could be from fluid overload Lasix x 1 given Seemed to have improved Echo does show an abnormal diastolic dysfunction Continue to trend respiratory status Time Spent With Patient Time with patient: Greater than 35 minutes Subjective Date/time seen: 04/04/22 14:35 Interval history: 04/04/22 0845 patient was lying in bed she stated that she still having problems with shortness of breath and chest pain. Is also knows that her creatinine went up to 1.5 today. I did talk to her son and updated him with the care plan. Talked to farm worker about chest pain however it does not seem to be cardiac related. Continue trend labs. 04/03/22 1200 Patient stated that she is doing well. She did not have any chest pain overnight. The only complaint she has is still little bit of shortness of breath. She just got back from her stress test and stated that she does feel little different afterwards. She denies any chest pain, nausea, vomiting, diarrhea, constipation, weakness or fatigue. 04/02/22? 0715 ? Patient is 76-year-old female with a past medical history of CABG x2, hypertension, hyperlipidemia, anxiety who presented to the ED with complaints of chest pain.? Patient stated that it all started about 6:00 a.m. last night and the pain lasted for about 10 has however she felt dizzy and just yuck for quite of while after that. patient stated that she was having lightheadedness and dizziness.? She denies any palpitations or racing.? She stated that she really did not take anything however she was experiencing shortness of breath and did try to lay down to try to get to relieve.? She stated that it was epigastric and? upper misael
--- NOTE | 2022-04-04 08:45 | P.PNIM_ITS ---
Progress Note: A&P Assessment and Plan (1) Acute non-ST elevation myocardial infarction (NSTEMI): Code(s): I21.4 - Non-ST elevation (NSTEMI) myocardial infarction Status: Acute Assessment and Plan: * EKG no ST changes noted on EKG * Trops elevated 0.140, 0.159, 0.129 * Cardiology consulted thank you for your help * Continue home metoprolol * Echo EF >70% with abnormal diastolic dysfunction with left vent wall thickness * Telemonitor * Aspirin continued * Brilinta loading * Heparin x 48 hours * History of CABG * Stress test performed and showed no abnormalities at this time (2) Anemia: Code(s): D64.9 - Anemia, unspecified Status: Acute Assessment and Plan: * H/H 11.0/35.7 * Anemia labs iron 42, TIBC 297, % sat 14, Tranferrin 226, Ferritin 43.80, B12 926, folate 12 * Supplement with Iron 325 mg PO daily * Trend H/H * transfuse if HGB <7.0 * Unknown type of anemia (3) Hyperlipidemia: Code(s): E78.5 - Hyperlipidemia, unspecified Status: Acute Assessment and Plan: * History noted * Continue home Zetia and atorvastatin * Lipid panel Cholesterol 139, Triglyceride 104, LDL 73, HDL 45 (4) Hypertension: Code(s): I10 - Essential (primary) hypertension Status: Acute Assessment and Plan: * Current BP is 102/58 * Continue home lisinopril and metoprolol * Trend BP * Adjust therapy as indicated (5) Anxiety and depression: Code(s): F41.9 - Anxiety disorder, unspecified; F32.A - Depression, unspecified Status: Acute Assessment and Plan: * Continue home sertraline (6) Transaminitis: Code(s): R74.01 - Elevation of levels of liver transaminase levels Status: Acute Assessment and Plan: * AST/ALT 56/59 * Trend labs * Hep panel negative (7) CLAUDIA (acute kidney injury): Code(s): N17.9 - Acute kidney failure, unspecified Status: Acute Assessment and Plan: * BUN/Cr is slightly elevated at 20/1.50 * Might be from possible dehydration * Give 250ml of fluid * No change in labs * Trend tomorrow (8) Shortness of breath: Code(s): R06.02 - Shortness of breath Status: Acute Assessment and Plan: * Could be from fluid overload * Lasix x 1 given * Seemed to have improved * Echo does show an abnormal diastolic dysfunction * Continue to trend respiratory status Time Spent With Patient Time with patient: Greater than 35 minutes Subjective Date/time seen: 04/04/22 14:35 Interval history: 04/04/22 0845 patient was lying in bed she stated that she still having problems with shortness of breath and chest pain. Is also knows that her creatinine went up to 1.5 today. I did talk to her son and updated him with the care plan. Talked to alumni coordinator about chest pain however it does not seem to be cardiac related. Continue trend labs. 04/03/22 1200 Patient stated that she is doing well. She did not have any chest pain overnight. The only complaint she has is still little bit of shortness of breath. She just got back from her stress test and stated that she does feel little different afterwards. She denies any chest pain, nausea, vomiting, diarrhea, constipation, weakness or fatigue. 04/02
[2022-04-04] MEDS: GABAPENTIN 300 MG CAPSULE 600 MG PO ×4 (09:50→20:08)
[2022-04-04] MEDS: EZETIMIBE 10 MG TABLET PO (09:50)
[2022-04-04] MEDS: DICLOFENAC SOD 75 MG TABLET.EC PO ×2 (09:50→18:04)
[2022-04-04] MEDS: ATORVASTATIN 40 MG TABLET 80 MG PO (09:50)
[2022-04-04] MEDS: ASPIRIN 81 MG CHEWABLE TABLET PO (09:50)
[2022-04-04] MEDS: METOPROLOL SUCCINATE EXT REL 25 MG TABCR PO (09:51)
[2022-04-04] MEDS: TICAGRELOR 90 MG TABLET PO ×2 (09:51→20:09)
[2022-04-04] MEDS: lisinopriL 5 MG TABLET PO (09:51)
[2022-04-04] MEDS: SERTRALINE HCL 50 MG TABLET PO (09:51)
[2022-04-04] MEDS: NEOMYCIN/POLYMYXIN/BACITRACIN OINTMENT PACKET 3 PACKET (12:32)
[2022-04-04] MEDS: SODIUM CHLORIDE 0.9% IV 250 ML 100 ML IV CONT (12:32)
[2022-04-04 14:30] LABS: Alanine Aminotransferase 48 U/L (6-35); Albumin Level 3.9 g/dL (3.5-5.1); Alkaline Phosphatase 99 U/L (38-126); Anion Gap 13 mmol/L (8-16); Aspartate Amino Transferase 40 U/L (14-36); Bilirubin,Total 0.5 mg/dL (0.2-1.3); Blood Urea Nitrogen 23 mg/dL (7-17); Calcium 9.2 mg/dL (8.4-10.2); Carbon Dioxide 25 mmol/L (22-30); Chloride 101 mmol/L (98-107); Estimated CRCL calculation 30 ml/min; Estimated Glomerular Filt Rate 34; Glucose 105 mg/dL (65-110); Potassium 3.8 mmol/L (3.4-5.0); Sodium 139 mmol/L (137-145)
--- NOTE | 2022-04-04 14:38 | ECG_ITS ---
Measurements Intervals [place] Rate: 62 P: 38 MD: 163 QRS: 26 QRSD: 102 T: 114 QT: 428 QTc: 435 Interpretive Statements SINUS RHYTHM ST DEVIATION AND MODERATE T-WAVE ABNORMALITY, CONSIDER ANTEROLATERAL ISCHEMIA [-0.1+ mV T WAVE IN V3-V6] COMPARED TO ECG 04/01/2022 23:27:10 NO SIGNIFICANT CHANGES Electronically Signed On 04-05-2022 13:49:47 CDT by Reddy Monahan M.D.
[2022-04-05] VITALS: PULSE 67
[2022-04-05 04:00] VITALS: PULSE 55
[2022-04-05 06:00] VITALS: BP 122/63; PULSE 66; RESP 16; TEMP 36.4; O2SAT 99
[2022-04-05 06:27] LABS: Basophils Percent Auto 0.8 % (0.2-1.2); Eosinophils Absolute Auto 0.3 K/mm3 (0-0.3); Eosinophils Percent Auto 6.4 % (0-4.4); Hematocrit 32.8 % (37.0-47.0); Hemoglobin 10.5 g/dL (12.0-15.0); Immature Granulocyte Absolute 0.01 K/mm3 (0.00-0.031); Immature Granulocyte Percent A 0.2 % (0-0.5); Lymphocytes Absolute Auto 1.52 K/mm3 (0.9-3.2); Lymphocytes Percent Auto 31.1 % (18.3-44.2); Mean Corpuscular Volume 93.7 fl (80-100); Mean Platelet Volume 10.4 fl (7.4-10.4); Monocytes Absolute Auto 0.7 K/mm3 (0.1-0.6); Monocytes Percent Auto 14.8 % (2.6-8.5); Neutrophils Absolute Auto 2.3 K/mm3 (1.3-6.7); Neutrophils Percent Auto 46.7 % (45.5-73.1); Platelet Count Result 185 k/mm3 (150-375); Red Cell Distribution Width 12.9 % (11.5-14.5); White Blood Count 4.9 K/mm3 (4.5-10.0)
[2022-04-05 06:42] LABS: Alanine Aminotransferase 46 U/L (6-35); Albumin Level 3.9 g/dL (3.5-5.1); Alkaline Phosphatase 98 U/L (38-126); Anion Gap 12 mmol/L (8-16); Aspartate Amino Transferase 36 U/L (14-36); Bilirubin,Total 0.6 mg/dL (0.2-1.3); Blood Urea Nitrogen 24 mg/dL (7-17); Calcium 9.1 mg/dL (8.4-10.2); Carbon Dioxide 26 mmol/L (22-30); Chloride 101 mmol/L (98-107); Estimated CRCL calculation 30 ml/min; Estimated Glomerular Filt Rate 34; Glucose 99 mg/dL (65-110); Magnesium 2.1 mg/dL (1.6-2.3); Potassium 3.9 mmol/L (3.4-5.0); Sodium 139 mmol/L (137-145)
[2022-04-05] MEDS: SODIUM CHLORIDE 0.9% IV 500 ML IV CONT (08:11)
[2022-04-05 08:12] VITALS: PULSE 68
[2022-04-05] MEDS: ASPIRIN 81 MG CHEWABLE TABLET PO (08:12)
[2022-04-05] MEDS: GABAPENTIN 300 MG CAPSULE 600 MG PO ×2 (08:12→12:30)
[2022-04-05] MEDS: SERTRALINE HCL 50 MG TABLET PO (08:12)
[2022-04-05] MEDS: TICAGRELOR 90 MG TABLET PO (08:12)
[2022-04-05] MEDS: EZETIMIBE 10 MG TABLET PO (08:12)
[2022-04-05] MEDS: DICLOFENAC SOD 75 MG TABLET.EC PO (08:12)
[2022-04-05] MEDS: ATORVASTATIN 40 MG TABLET 80 MG PO (08:12)
[2022-04-05] MEDS: METOPROLOL SUCCINATE EXT REL 25 MG TABCR PO (08:12)
[2022-04-05] MEDS: lisinopriL 5 MG TABLET PO (08:13)
[2022-04-05] MEDS: ACETAMINOPHEN 500 MG TABLET 1000 MG PO (08:14)
[2022-04-05 11:30] LABS: Hematocrit 34.8 % (37.0-47.0); Hemoglobin 11.1 g/dL (12.0-15.0); Mean Corpuscular HGB Conc 31.9 g/dl (32-36); Mean Corpuscular Hemoglobin 30.6 pg (26-34); Mean Corpuscular Volume 95.9 fl (80-100); Mean Platelet Volume 10.8 fl (7.4-10.4); Platelet Count Result 202 k/mm3 (150-375); Red Blood Count 3.63 M/mm3 (4.2-5.4); Red Cell Distribution Width 12.9 % (11.5-14.5); White Blood Count 5.4 K/mm3 (4.5-10.0)
[2022-04-05 11:40] LABS: Anion Gap 10 mmol/L (8-16); Blood Urea Nitrogen 23 mg/dL (7-17); Calcium 9.1 mg/dL (8.4-10.2); Carbon Dioxide 25 mmol/L (22-30); Chloride 102 mmol/L (98-107); Estimated CRCL calculation 34 ml/min; Estimated Glomerular Filt Rate 40; Glucose 79 mg/dL (65-110); Potassium 4.1 mmol/L (3.4-5.0); Sodium 137 mmol/L (137-145)
--- NOTE | 2022-04-05 12:15 | PM.DS ---
DS: Admitting Diagnosis Discharge Date 04/05/22 1215 Admitting Diagnosis NSTEMI, uncontrolled hypertension, CLAUDIA DS: Discharge Diagnosis Discharge Diagnosis (1) Acute non-ST elevation myocardial infarction (NSTEMI): Code(s): I21.4 - Non-ST elevation (NSTEMI) myocardial infarction Status: Acute Assessment and Plan: EKG no ST changes noted on EKG Trops elevated 0.140, 0.159, 0.129 Cardiology consulted thank you for your help Continue home metoprolol Echo EF >70% with abnormal diastolic dysfunction with left vent wall thickness Telemonitor Aspirin continued Brilinta loading Heparin x 48 hours History of CABG Stress test performed and showed no abnormalities at this time (2) Anemia: Code(s): D64.9 - Anemia, unspecified Status: Acute Assessment and Plan: H/H 10.5/32.8 Anemia labs iron 42, TIBC 297, % sat 14, Tranferrin 226, Ferritin 43.80, B12 926, folate 12 Supplement with Iron 325 mg PO daily Trend H/H transfuse if HGB <7.0 Unknown type of anemia (3) Hyperlipidemia: Code(s): E78.5 - Hyperlipidemia, unspecified Status: Acute Assessment and Plan: History noted Continue home Zetia and atorvastatin Lipid panel Cholesterol 139, Triglyceride 104, LDL 73, HDL 45 (4) Hypertension: Code(s): I10 - Essential (primary) hypertension Status: Acute Assessment and Plan: Current BP is 122/63 Continue home lisinopril and metoprolol Trend BP Adjust therapy as indicated (5) Anxiety and depression: Code(s): F41.9 - Anxiety disorder, unspecified; F32.A - Depression, unspecified Status: Acute Assessment and Plan: Continue home sertraline (6) Transaminitis: Code(s): R74.01 - Elevation of levels of liver transaminase levels Status: Acute Assessment and Plan: AST/ALT 36/46 Trend labs Hep panel negative (7) CLAUDIA (acute kidney injury): Code(s): N17.9 - Acute kidney failure, unspecified Status: Acute Assessment and Plan: BUN/Cr is slightly elevated at 23/1.30 Might be from possible dehydration Give 250ml of fluid, repeated with 500ml of fluid (8) Shortness of breath: Code(s): R06.02 - Shortness of breath Status: Acute Assessment and Plan: Could be from fluid overload Lasix x 1 given Seemed to have improved Echo does show an abnormal diastolic dysfunction Continue to trend respiratory status DS: Summary Hospital Course Hospital Course: ?Patient is 76-year-old female with a past medical history of CABG x2, hypertension, hyperlipidemia, anxiety who presented to the ED with complaints of chest pain.? Patient stated that it all started about 6:00 a.m. last night and the pain lasted for about 10 has however she felt dizzy and just yuck for quite of while after that. patient stated that she was having lightheadedness and dizziness.? She denies any palpitations or racing.? She stated that she really did not take anything however she was experiencing shortness of breath and did try to lay down to try to get to relieve.? She stated that it was epigastric and? upper chest stabbing pain.? Patient stated that she was getting very dizzy and is having horrible pain which prompted her to come back in.? Earlier in the day about 10 30 the patient was having back pain that started at her waist and went all the way up.? She also became very dizzy and lightheaded at that time.? She also did lay down at that time with no relief of symptoms.? She denies any visual changes or hearing changes.? She denies any sweats, fevers, chills, nausea, vomiting, diarrhea, constipation, syncope or falls.? It is noted that the patient does have elevated troponins and her? liver enzymes are also elevated.? Patient does follows with Dr. Ordaz at [place]. ? EKG does not show any true real changes or S
--- NOTE | 2022-04-05 12:15 | P.DS_ITS ---
DS: Admitting Diagnosis Discharge Date 04/05/22 1215 Admitting Diagnosis NSTEMI, uncontrolled hypertension, CLAUDIA DS: Discharge Diagnosis Discharge Diagnosis (1) Acute non-ST elevation myocardial infarction (NSTEMI): Code(s): I21.4 - Non-ST elevation (NSTEMI) myocardial infarction Status: Acute Assessment and Plan: * EKG no ST changes noted on EKG * Trops elevated 0.140, 0.159, 0.129 * Cardiology consulted thank you for your help * Continue home metoprolol * Echo EF >70% with abnormal diastolic dysfunction with left vent wall thickness * Telemonitor * Aspirin continued * Brilinta loading * Heparin x 48 hours * History of CABG * Stress test performed and showed no abnormalities at this time (2) Anemia: Code(s): D64.9 - Anemia, unspecified Status: Acute Assessment and Plan: * H/H 10.5/32.8 * Anemia labs iron 42, TIBC 297, % sat 14, Tranferrin 226, Ferritin 43.80, B12 926, folate 12 * Supplement with Iron 325 mg PO daily * Trend H/H * transfuse if HGB <7.0 * Unknown type of anemia (3) Hyperlipidemia: Code(s): E78.5 - Hyperlipidemia, unspecified Status: Acute Assessment and Plan: * History noted * Continue home Zetia and atorvastatin * Lipid panel Cholesterol 139, Triglyceride 104, LDL 73, HDL 45 (4) Hypertension: Code(s): I10 - Essential (primary) hypertension Status: Acute Assessment and Plan: * Current BP is 122/63 * Continue home lisinopril and metoprolol * Trend BP * Adjust therapy as indicated (5) Anxiety and depression: Code(s): F41.9 - Anxiety disorder, unspecified; F32.A - Depression, unspecified Status: Acute Assessment and Plan: * Continue home sertraline (6) Transaminitis: Code(s): R74.01 - Elevation of levels of liver transaminase levels Status: Acute Assessment and Plan: * AST/ALT 36/46 * Trend labs * Hep panel negative (7) CLAUDIA (acute kidney injury): Code(s): N17.9 - Acute kidney failure, unspecified Status: Acute Assessment and Plan: * BUN/Cr is slightly elevated at 23/1.30 * Might be from possible dehydration * Give 250ml of fluid, repeated with 500ml of fluid (8) Shortness of breath: Code(s): R06.02 - Shortness of breath Status: Acute Assessment and Plan: * Could be from fluid overload * Lasix x 1 given * Seemed to have improved * Echo does show an abnormal diastolic dysfunction * Continue to trend respiratory status DS: Summary Hospital Course Hospital Course: ?Patient is 76-year-old female with a past medical history of CABG x2, hypertension, hyperlipidemia, anxiety who presented to the ED with complaints of chest pain.? Patient stated that it all started about 6:00 a.m. last night and the pain lasted for about 10 has however she felt dizzy and just yuck for quite of while after that. patient stated that she was having lightheadedness and dizziness.? She denies any palpitations or racing.? She stated that she really did not take anything however she was experiencing shortness of breath and did try to lay down to try to get to relieve.? She stated that it was epigastric and? upper chest stabbing pain.? Patient stated that she was getting very dizzy and is having horrible pain
[2022-04-05 13:44] LABS: EDCOVIDSCREEN Negative (Negative)
== END 2022-04-05 15:10 | DRG 281 ==
LOC: ANHED 22:36 → ANHIMU 04-02 02:06 → ANH3MEDSUR 04-05 13:52 → ANHIMU 04-08 11:09
PROVIDERS: Admitting Provider Internal Medicine; Emergency Provider Emergency Medicine; PCP Family Medicine Adolescent Medicine; Visit Provider Nurse Practitioner
DX: I21.4 Non-ST elevation (NSTEMI) myocardial infarction (principal); N17.9 Acute kidney failure, unspecified; I25.10 Atherosclerotic heart disease of native coronary artery without angina pectoris; I12.9 Hypertensive chronic kidney disease with stage 1 through stage 4 chronic kidney disease, or unspecified chronic kidney disease; N18.9 Chronic kidney disease, unspecified; D64.9 Anemia, unspecified; E78.00 Pure hypercholesterolemia, unspecified; M81.0 Age-related osteoporosis without current pathological fracture; R74.01 Elevation of levels of liver transaminase levels; R06.02 Shortness of breath; F32.A Depression, unspecified; F41.9 Anxiety disorder, unspecified; Z20.822 Contact with and (suspected) exposure to COVID-19; Z96.651 Presence of right artificial knee joint; Z95.1 Presence of aortocoronary bypass graft
CPT/HCPCS: 36415; 71045; 71046; 78452; 80048; 80053; 80061; 80074; 81001; 82607; 82728; 82746; 83540; 83550; 83735; 83880; 84443; 84466; 84484; 85025; 85027; 85610; 85730; 87086; 87426; 93005; 93017; 93970; 96366; 96375; 96376; 99285; A9270; A9502; C8929; C9803; G0378; J1644; J1940; J2270; J2785; J3475; J7040; J7050; Q9957; U0003; U0005

== ENCOUNTER 2022-04-09 17:49 | Inpatient (IN) | payer OTHER, MEDICAID, SELFPAY ==
[2022-04-09] VITALS (32 sets, daily range): BP systolic 85–191; BP diastolic 45–85; PULSE 56–88; RESP 12–27; TEMP 36.4–36.8; O2SAT 97–100
--- NOTE | ~2022-04-09 | CT_ITS ---
EXAMINATION: CTA chest abdomen pelvis DATE: 04/09/2022 20:21 INDICATION: Chest pain radiating to the back. TECHNIQUE: Computed tomography (CT) of the chest, abdomen, and pelvis was performed with 100 CC Omnip aque 350 intravenous contrast. Automated exposure control and iterative reconstruction technique were employed. Exam dose: 659.28 mGy-cm total exam DLP. COMPARISON: 04/09/2022 PA and lateral chest 10/29/2017 CTA chest 10/15/2017 CT abdomen pelvis FINDINGS: CHEST CT: Status post sternotomy and coronary artery bypass graft surgery. Heart size is normal. No pericardial or pleural effusion. There is thoracic aortic and great vessel and coronary artery calcification. No thoracic aortic aneur ysm or dissection. No hilar or mediastinal mass lesion or lymphadenopathy. No pulmonary infiltrate or consolidation or pulmonary mass lesion. ABDOMEN/PELVIS CT: There is intrahepatic and extrahepatic bile duct dilatation,, new since 10/29/2017. Given correlation with serum bilirubin level possible further evaluation with MRCP as clinically appropriate. Status post cholecystectomy. No hepatic, splenic, pancreatic, right adrenal or suspicious solid renal space-occupying mass lesion. 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 Occasional renal cysts, largest on the left, an exophytic a pproximately 3.7 cm cyst. No urinary tract calculus or hydroureteronephrosis. The urinary bladder is unremarkable.. There is atherosclerotic calcification but normal caliber of the abdominal aorta and iliac arteries. No intraperitoneal or retroperitoneal or pelvic mass lesion or adenopathy or ascites. Normal appendix. Diverticulosis of the colon; no CT evidence of diverticulitis. Severe right hip osteoarthritis. Chronic burst fracture deformity of T11. Multilevel degenerative disc disease of the lumbar spine. Osteopenia. IMPRESSION: Interval intrahepatic and extra hepatic bile duct dilatation since 10/29/2017, consider f urther evaluation, including possible MRCP as clinically appropriate Status post cholecystectomy Renal cysts Diverticulosis of the colon Reviewed, dictated and finalized at [facility]. Reviewed, dictated and finalized at [facility]. IMPRESSION: Interval intrahepatic and extra hepatic bile duct dilatation since 10/29/2017, consider further evaluation, including possible MRCP as clinically appropriate Status post cholecystectomy Renal cysts Diverticulosis of the colon
--- NOTE | ~2022-04-09 | XR_ITS ---
XR chest 2V DATE: 04/09/2022 18:46 INDICATION: Midsternal chest pain, back pain. History of hypertension, heart surgery. TECHNIQUE: PA and lateral views COMPARISON: 04/04/2022 portable AP chest 10/29/2017 CTA chest FINDINGS: Status post sternotomy and coronary artery bypass graft surgery. Cardiomegaly. Aortic calci fication and unfolding. No hilar or mediastinal enlargement. No pulmonary infiltrate or consolidation, pleural effusion or pulmonary vascular congestion or pneumo thorax. There is prominent anterior wedging and loss of height of T11 consistent with chronic compression fra cture, unchanged since 10/29/2017 CTA chest examination.. Osteopenia. Surgical clips, right upper quadrant, consistent with cholecystectomy. IMPRESSION: Cardiomegaly Aortic atherosclerosis No active pulmonary disease Osteopenia Chronic stable T11 compression fracture Reviewed, dictated and finalized at [facility].
--- NOTE | ~2022-04-09 | MR_ITS ---
EXAMINATION: MR MRCP wo/w con/w 3D wo ind DATE: 04/10/2022 13:13 INDICATION: Transaminitis. TECHNIQUE: Magnetic resonance imaging (MRI) of the abdomen was performed without and with 15 mL Multi Angie intravenous contrast. Sequences included coronal T2-weighted FS FSE, coronal T2-weighted FSE, a xial T1-weighted LAVA, coronal FS FIESTA, axial dual-echo T1-weighted SPGR, coronal lava-FLEX, sagitt al T2-weighted FSE, axial T2-weighted FSE, and axial DWI. Thick-slab T2-weighted FSE images were obta ined for magnetic resonance cholangiopancreatography (MRCP). Maximum intensity projection 3-D reconst ructions of the volumetric data were created by the technologist. Postcontrast sequences included cor onal LAVA-flex and time course of axial T1-weighted LAVA. COMPARISON: CT abdomen and pelvis 04/09/2022, MRCP 06/30/2006 FINDINGS: ABDOMEN MRI: There is mild intrahepatic biliary duct dilatation. The common duct is dilated to 11 mm. The gallbladder is absent. The spleen is normal. There is a 13 mm cystic lesion in the body of the p ancreas with communication with the main pancreatic duct. The right adrenal gland is normal. There is a 3.6 cm mass with fat in left adrenal gland, consistent with a myelolipoma. There are cysts in the kidneys measuring up to 3.8 cm on the left. There are no dilated loops of bowel. The appendix is norm al. There are no pathologically enlarged lymph nodes. There is no free intraperitoneal fluid. ABDOMEN MRCP: There is no choledocholithiasis. IMPRESSION: 1. Mild intrahepatic and extrahepatic biliary duct dilatation status post cholecystectomy. No choledo cholithiasis. 2. 13 mm cystic lesion in the pancreas. The differential diagnosis includes pseudocyst, intraductal p apillary mucinous neoplasm (IPMN), mucinous cystic neoplasm (MCN), serous cystadenoma, and neuroendoc rine tumor. Consider abdomen MRI without and with contrast in 2 years. Reviewed, dictated and finalized at [facility]. IMPRESSION: 1. Mild intrahepatic and extrahepatic biliary duct dilatation status post adriel cystectomy. No choledocholithiasis. 2. 13 mm cystic lesion in the pancreas. The differential diagnosis includes pse udocyst, intraductal papillary mucinous neoplasm (IPMN), mucinous cystic neopla sm (MCN), serous cystadenoma, and neuroendocrine tumor. Consider abdomen MRI wi thout and with contrast in 2 years.
--- NOTE | 2022-04-09 17:55 | ECG_ITS ---
Measurements Intervals [place] Rate: 59 P: 85 TX: 159 QRS: 39 QRSD: 100 T: 143 QT: 413 QTc: 412 Interpretive Statements SINUS BRADYCARDIA WITH SINUS ARRHYTHMIA MODERATE T-WAVE ABNORMALITY, CONSIDER ANTEROLATERAL ISCHEMIA [-0.1+ mV T WAVE IN V3-V6] MODERATE T-WAVE ABNORMALITY, CONSIDER INFERIOR ISCHEMIA [-0.1+ mV T WAVE IN II/aVF] COMPARED TO ECG 04/04/2022 15:08:55 SINUS BRADYCARDIA NOW PRESENT Electronically Signed On 04-10-2022 13:02:57 CDT by Yaneli Perry M.D.
[2022-04-09 18:20] LABS: Basophils Percent Auto 0.6 % (0.2-1.2); Eosinophils Absolute Auto 0.2 K/mm3 (0-0.3); Eosinophils Percent Auto 2.7 % (0-4.4); Hematocrit 34.2 % (37.0-47.0); Hemoglobin 11.2 g/dL (12.0-15.0); Immature Granulocyte Absolute 0.02 K/mm3 (0.00-0.031); Immature Granulocyte Percent A 0.3 % (0-0.5); Lymphocytes Absolute Auto 1.05 K/mm3 (0.9-3.2); Lymphocytes Percent Auto 15.7 % (18.3-44.2); Mean Corpuscular HGB Conc 32.7 g/dl (32-36); Mean Corpuscular Hemoglobin 31.2 pg (26-34); Mean Corpuscular Volume 95.3 fl (80-100); Mean Platelet Volume 11.2 fl (7.4-10.4); Monocytes Absolute Auto 0.6 K/mm3 (0.1-0.6); Monocytes Percent Auto 8.2 % (2.6-8.5); Neutrophils Absolute Auto 4.9 K/mm3 (1.3-6.7); Neutrophils Percent Auto 72.5 % (45.5-73.1); Platelet Count Result 218 k/mm3 (150-375); Red Blood Count 3.59 M/mm3 (4.2-5.4); Red Cell Distribution Width 12.5 % (11.5-14.5); White Blood Count 6.7 K/mm3 (4.5-10.0)
[2022-04-09 18:29] LABS: Prothrombin Time 12.9 Seconds (11.1-14.7)
[2022-04-09 18:30] LABS: Partial Thromboplastin Time 30.9 SECONDS (22.3-36.8)
[2022-04-09 19:07] LABS: Alanine Aminotransferase 205 U/L (6-35); Albumin Level 4.3 g/dL (3.5-5.1); Alkaline Phosphatase 279 U/L (38-126); Anion Gap 15 mmol/L (8-16); Aspartate Amino Transferase 481 U/L (14-36); Bilirubin,Total 1.3 mg/dL (0.2-1.3); Blood Urea Nitrogen 25 mg/dL (7-17); Calcium 9.8 mg/dL (8.4-10.2); Carbon Dioxide 23 mmol/L (22-30); Chloride 103 mmol/L (98-107); Estimated CRCL calculation 30 ml/min; Estimated Glomerular Filt Rate 34; Glucose 118 mg/dL (65-110); Lipase 393 U/L (23-300); Sodium 141 mmol/L (137-145)
[2022-04-09] MEDS: NITROGLYCERIN SL 0.4 MG TABLET SUBLINGUAL (19:09)
--- NOTE | 2022-04-09 19:12 | ED.GENADULT ---
HPI - General Adult General Chief complaint: Chest Pain Stated complaint: cp with inspiration Time Seen by Provider: 04/09/22 18:14 History of Present Illness HPI narrative: This is a 76-year-old female presenting ED with chest pain. The chest pain started at 4:00 p.m. today. She describes as a pain in the center of her chest that radiates to her back per the 10 in intensity. It was sudden in onset and constant. She states that she has never experienced pain like this before although her son is in the room he says that she was admitted here last week for similar chest pain. There are no exacerbating or alleviating factors. Patient says that it is associated with nausea, exertion and shortness of breath. She has not vomited. She is not diaphoretic. She denies fever, chills or productive cough. Denies lower extremity edema. Denies any focal neurologic deficits or weakness to any extremity. Related Data Home Medications Medication Instructions Recorded Confirmed atorvastatin 80 mg tablet 80 mg PO DAILY 10/19/21 04/02/22 sertraline 100 mg tablet 50 mg PO DAILY 10/19/21 04/02/22 gabapentin 300 mg capsule 600 mg PO QID 02/14/22 04/02/22 acetaminophen 500 mg tablet 1,000 mg PO Q6H PRN Pain 04/02/22 04/02/22 (Tylenol Extra Strength) aspirin 81 mg chewable tablet 81 mg PO DAILY 04/02/22 04/02/22 ezetimibe 10 mg tablet 10 mg PO DAILY 04/02/22 04/02/22 linaclotide 145 mcg capsule 145 mcg PO DAILY PRN Constipation 04/02/22 04/02/22 (Linzess) lisinopril 5 mg tablet 5 mg PO DAILY 04/02/22 04/02/22 Allergies Allergy/AdvReac Type Severity Reaction Status Date / Time codeine Allergy Unknown shortness Verified 04/01/22 23:58 of breath Latex, Natural Rubber Allergy Unknown SKIN Verified 04/01/22 23:58 IRRITATION tramadol AdvReac Mild Nausea and Verified 04/01/22 23:58 Vomiting, HEADACHE, DIZZINESS Review of Systems Review of Systems: CONSTITUTIONAL: Denies night sweats. EYES: No eye pain ENT: Denies rhinorrhea CARDIOVASCULAR: Denies palpitations RESPIRATORY: Denies hemoptysis GASTROINTESTINAL: Denies hematemesis GENITOURINARY: Denies hematuria. SKIN: Denies rash MUSCULOSKELETAL: Denies myalgia. NEUROLOGIC: Denies weakness. PSYCHIATRIC: Denies delusions PMFSH Past Medical History Medical History Bowel perforation Compression fracture of thoracic spine, non-traumatic T11 2017 Hyperlipidemia Hypertension Surgical History Surgical History History of lumbar surgery 1999 History of total right knee replacement 2018 S/P CABG x 2 S/P cholecystectomy Family History Family History Father Malignant neoplasm of prostate Mother Alzheimer's dementia Sibling Alzheimer's dementia Social History Social History Social History: Patient lives in the assisted living. Her son Storm is her surrogate. She has three kids, and 4 grandkids. She denies having a pet. She was and her last Jul from recurrent polio infection and acute brain bleed. 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
[2022-04-09 19:19] LABS: Troponin I 0.013 ng/mL (0.000-0.034)
--- NOTE | 2022-04-09 19:27 | PC.NURSE ---
after nitro BP dropped 85/45 from 189/63
[2022-04-09] MEDS: ONDANSETRON INJ 4 MG/2 ML VIAL IV PUSH (19:34)
[2022-04-09] MEDS: SODIUM CHLORIDE 0.9% IV 1,000 ML 999 ML IV CONT (21:57)
[2022-04-09 22:03] LABS: Troponin I 0.014 ng/mL (0.000-0.034)
--- NOTE | 2022-04-09 23:51 | PM.IMHP ---
H&P: HPI History of Present Illness Date/Time: 04/09/22 23:51 Chief Complaint: Abdominal pain. Narrative: This is a 76-year-old female with past medical history significant for coronary artery disease status post coronary artery bypass graft X 2, osteoporosis, hypertension, dyslipidemia, degenerative joint disease. patient presents to the emergency room due to epigastric pain with radiation to the back rate set at 6/10 in intensity it is burning sensation started out in early in the morning and remained constant and worsened towards the end of the day had nausea but no vomiting has not been able to eat anything has had a poor appetite denies any fevers, rigors, chills, no diarrhea, has been in her usual state of health. Patient is usually able to tolerate her meals well. preliminary workup was significant for complaint hence if metabolic profile showed BUN 25 creatinine 1.5 AST 481 ALT 205 alk phos 279: CT of abdomen and pelvis was reported as: IMPRESSION:? Interval intrahepatic and extra hepatic bile duct dilatation since 10/29/2017, consider further evaluation, including possible MRCP as clinically appropriate Status post cholecystectomy Renal cysts Diverticulosis of the colon Review of Systems Review of Systems: EPIGASTRIC ABDOMINAL PAIN Constitutional: Constitutional: Denies chills, Denies fever(s), Denies malaise and Denies weakness Eyes: Eyes: Denies change in vision ENT: Denies dysphagia, Denies vertigo, Denies dizziness and Denies odynophagia Cardiovascular: Cardiovascular: Denies chest pain, Denies pedal edema, Denies irregular heart rhythm, Denies leg edema, Denies lightheadedness, Denies palpitations and Denies dyspnea on exertion Respiratory: Respiratory: Denies chest congestion, Denies cough and Denies dyspnea Gastrointestinal: Gastrointestinal: Reports abdominal pain, Denies dyspepsia, Denies heartburn, Denies diarrhea, Reports nausea and Denies vomiting Genitourinary: Genitourinary: Denies dysuria Musculoskeletal: Musculoskeletal: Denies myalgias Integumentary/Breasts: Skin/Breast: Denies rash Neurologic: Denies vertigo, Denies dizziness, Denies focal weakness and Denies Sensory deficit (Neuro) Psychiatric: Psychiatric: Reports no additional psychiatric complaints and Reports as per HPI Endocrine: Endocrine: Denies cold intolerance, Denies flushing, Denies heat intolerance, Denies polyphagia, Denies polydipsia and Denies palpitations Hematologic/Lymphatic: Hematologic/Lymphatic: Reports no additional hematologic/lymphatic complaints and Reports as per HPI Allergic/Immunologic: Allergic/Immunologic: Reports no additional allergic/immunologic complaints and Reports as per HPI PMFSH Past Medical History Medical History Bowel perforation Compression fracture of thoracic spine, non-traumatic T11 2017 Hyperlipidemia Hypertension Surgical History Surgical History History of lumbar surgery 1999 History of total right knee replacement 2018 S/P CABG x 2 S/P cholecystectomy Family History Family History Father Malignant neoplasm of prostate Mother Alzheimer's dementia Sibling Alzheimer's dementia Social History Social History Social History: Patient lives in the assisted living. Her son Storm is her surrogate. She has three kids, and 4 grandkids. She denies having a pet. She was and her last Jul from recurrent polio infection and acute brain bleed. 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
--- NOTE | 2022-04-10 00:17 | ADMGEN ---
This patient, Tiera Lobato, was admitted to Medical Room 249-01. Patient/family oriented to hospital policies and general routines including ID bracelet, bed and alarms, visiting hours, pain management, procedures, bathroom and other care routines, personal items, smoking policy, room service/diet, and visiting hours. Information on how to activate the Rapid Response Team has been discussed. Patient/Family are encouraged to report perceived risks to care and to ask questions if they do not understand what they are told or what they should do.
[2022-04-10 00:35] VITALS: BP 151/65; PULSE 83; RESP 21; TEMP 37.1; O2SAT 100
[2022-04-10 02:07] LABS: Troponin I 0.017 ng/mL (0.000-0.034)
[2022-04-10 03:02] VITALS: BMI 29.7
[2022-04-10 06:00] VITALS: BP 131/59; PULSE 90; RESP 20; TEMP 36.7; O2SAT 99
[2022-04-10 08:28] LABS: Hematocrit 31.1 % (37.0-47.0); Hemoglobin 10.4 g/dL (12.0-15.0); Mean Corpuscular HGB Conc 33.4 g/dl (32-36); Mean Corpuscular Hemoglobin 30.6 pg (26-34); Mean Corpuscular Volume 91.5 fl (80-100); Mean Platelet Volume 10.7 fl (7.4-10.4); Platelet Count Result 192 k/mm3 (150-375); Red Cell Distribution Width 12.6 % (11.5-14.5)
[2022-04-10 09:00] LABS: Albumin Level 3.9 g/dL (3.5-5.1); Alkaline Phosphatase 345 U/L (38-126); Anion Gap 11 mmol/L (8-16); Bilirubin,Total 2.3 mg/dL (0.2-1.3); Blood Urea Nitrogen 16 mg/dL (7-17); Calcium 9.2 mg/dL (8.4-10.2); Carbon Dioxide 23 mmol/L (22-30); Chloride 106 mmol/L (98-107); Estimated CRCL calculation 40 ml/min; Estimated Glomerular Filt Rate 48; Glucose 122 mg/dL (65-110); Lipase 323 U/L (23-300); Potassium 4.1 mmol/L (3.4-5.0); Sodium 140 mmol/L (137-145)
[2022-04-10] MEDS: ACETAMINOPHEN 500 MG TABLET 1000 MG PO (09:04)
[2022-04-10] MEDS: GABAPENTIN 300 MG CAPSULE 600 MG PO ×4 (09:05→20:34)
[2022-04-10] MEDS: TICAGRELOR 90 MG TABLET PO ×2 (09:05→20:34)
[2022-04-10 09:06] VITALS: PULSE 88
[2022-04-10] MEDS: METOPROLOL SUCCINATE EXT REL 12.5 MG TABCR PO (09:06)
[2022-04-10] MEDS: PANTOPRAZOLE 40 MG TABLET PO (09:06)
[2022-04-10] MEDS: HEPARIN SODIUM 5,000 UNITS/ML VIAL 5000 UNITS SUB-Q ×2 (09:06→20:33)
[2022-04-10] MEDS: ASPIRIN 81 MG CHEWABLE TABLET PO (09:07)
[2022-04-10] MEDS: SODIUM CHLORIDE 0.9% IV 1,000 ML 75 ML IV CONT (09:07)
[2022-04-10] MEDS: SERTRALINE HCL 50 MG TABLET PO (09:07)
[2022-04-10 09:21] LABS: Alanine Aminotransferase 2705 U/L (6-35)
[2022-04-10 09:32] LABS: Aspartate Amino Transferase 4735 U/L (14-36)
[2022-04-10 14:00] VITALS: BP 122/52; PULSE 91; RESP 18; TEMP 36.3; O2SAT 98
--- NOTE | 2022-04-10 14:07 | PC.NURSE ---
On 04/10/22, the student, [Harpreet Carlos], provided care and completed [facility] documentation on this patient. I have reviewed the student's documentation and agree with the findings.
[2022-04-10] MEDS: HYDROcodone/acetaminophen (*CRX) 5-325 MG TABLET 1 TAB PO ×2 (16:21→20:39)
--- NOTE | 2022-04-10 16:43 | P.PNIM_ITS ---
Progress Note: A&P Assessment and Plan (1) Abdominal pain: Code(s): R10.9 - Unspecified abdominal pain Status: Acute Assessment and Plan: presented with abdominal discomfort. CTA showed biliary ductal dilation and patient with elevated liver enzymes * MRCP completed today also revealed mild intrahepatic and extrahepatic biliary duct dilation status post cholecystectomy with no evidence of choledocholithia sis * there is a 13 mm cystic lesion of the pancreas but this is not likely to be contributing to her symptoms. * Lipase is very mildly elevated at 320 * appreciate GI consultation * continue NPO diet except meds with sips at this time * gentle IV fluid hydration while NPO * supportive care. Analgesics and antiemetics available as neede (2) Transaminitis: Code(s): R74.01 - Elevation of levels of liver transaminase levels Status: Acute Assessment and Plan: Marked elevation. * total bilirubin 2.3 * AST 4735 * ALT 2705 * ALP 345 * no evidence of choledocholithiasis or cholangitis * hepatitis panel negative * appreciate GI evaluation (3) CLAUDIA (acute kidney injury): Code(s): N17.9 - Acute kidney failure, unspecified Status: Acute Assessment and Plan: resolved. * creatinine elevated up to 1.5, improved to 1.1 with IV fluid rehydration * continue with gentle IV fluids while NPO * monitor renal function closely (4) CAD (coronary artery disease): Code(s): I25.10 - Atherosclerotic heart disease of [place] coronary artery without angina pectoris Status: Acute Assessment and Plan: patient with recent admission for chest pain and had extensive workup * no chest pain at this time * continue with outpatient follow-up with her document management technician. * Continue 0 aspirin, Brilinta, atorvastatin (5) Hypertension: Code(s): I10 - Essential (primary) hypertension Status: Acute Assessment and Plan: blood pressures are stable. Last BP 122/52 * continue metoprolol * lisinopril on hold due to CLAUDIA. Will resume tomorrow with a.m. meds Subjective Date/time seen: 04/10/22 16:43 Interval history: date of service: 04/10/2022 Tiera Lobato is a 76-year-old female with a history of hypertension, hyperlipidemia, thoracic compression fracture and bowel perforation who is seen in follow-up for abdominal pain. She is feeling well today. Her abdominal pain has resolved. She denies fevers, chills, nausea, vomiting, dizziness, lightheadedness. She has been able to ambulate independently. States her last bowel movement was 2 days ago. She denies urinary symptoms. She has been NPO today. Review of Systems Review of Systems: All systems reviewed & are unremarkable except as noted in HPI and below Exam Narrative: General: Well-nourished, well-appearing 76-year-old female, sitting up in bed, comfortable, NARD Neuro: awake, alert and oriented x4, speech clear, no focal neuro deficits noted HEENMT: normocephalic, atraumatic, EOMI, sclerae anicteric Respiratory: clear to auscultation bilaterally, nonlabored breathing Cardio: regular rate, regular rhythm with S1-S2 Abdomen: nondistended, normoactive bowel sounds, soft, minimally tender to palpation in right upper quadrant Extremities: no edema, erythema, or tenderness to palpation, DP pulses 2+ bilaterally Skin: no rashes or lesions, warm and dry Psych: appropriate mood and affect, judgment and insight intact Obj
--- NOTE | 2022-04-10 16:43 | PM.IMPN ---
Progress Note: A&P Assessment and Plan (1) Abdominal pain: Code(s): R10.9 - Unspecified abdominal pain Status: Acute Assessment and Plan: presented with abdominal discomfort. CTA showed biliary ductal dilation and patient with elevated liver enzymes MRCP completed today also revealed mild intrahepatic and extrahepatic biliary duct dilation status post cholecystectomy with no evidence of choledocholithiasis there is a 13 mm cystic lesion of the pancreas but this is not likely to be contributing to her symptoms. Lipase is very mildly elevated at 320 appreciate GI consultation continue NPO diet except meds with sips at this time gentle IV fluid hydration while NPO supportive care. Analgesics and antiemetics available as neede (2) Transaminitis: Code(s): R74.01 - Elevation of levels of liver transaminase levels Status: Acute Assessment and Plan: Marked elevation. total bilirubin 2.3 AST 4735 ALT 2705 ALP 345 no evidence of choledocholithiasis or cholangitis hepatitis panel negative appreciate GI evaluation (3) CLAUDIA (acute kidney injury): Code(s): N17.9 - Acute kidney failure, unspecified Status: Acute Assessment and Plan: resolved. creatinine elevated up to 1.5, improved to 1.1 with IV fluid rehydration continue with gentle IV fluids while NPO monitor renal function closely (4) CAD (coronary artery disease): Code(s): I25.10 - Atherosclerotic heart disease of [place] coronary artery without angina pectoris Status: Acute Assessment and Plan: patient with recent admission for chest pain and had extensive workup no chest pain at this time continue with outpatient follow-up with her social science instructor. Continue 0 aspirin, Brilinta, atorvastatin (5) Hypertension: Code(s): I10 - Essential (primary) hypertension Status: Acute Assessment and Plan: blood pressures are stable. Last BP 122/52 continue metoprolol lisinopril on hold due to CLAUDIA. Will resume tomorrow with a.m. meds Subjective Date/time seen: 04/10/22 16:43 Interval history: date of service: 04/10/2022 Tiera Lobato is a 76-year-old female with a history of hypertension, hyperlipidemia, thoracic compression fracture and bowel perforation who is seen in follow-up for abdominal pain. She is feeling well today. Her abdominal pain has resolved. She denies fevers, chills, nausea, vomiting, dizziness, lightheadedness. She has been able to ambulate independently. States her last bowel movement was 2 days ago. She denies urinary symptoms. She has been NPO today. Review of Systems Review of Systems: All systems reviewed & are unremarkable except as noted in HPI and below Exam Narrative: General: Well-nourished, well-appearing 76-year-old female, sitting up in bed, comfortable, NARD Neuro: awake, alert and oriented x4, speech clear, no focal neuro deficits noted HEENMT: normocephalic, atraumatic, EOMI, sclerae anicteric Respiratory: clear to auscultation bilaterally, nonlabored breathing Cardio: regular rate, regular rhythm with S1-S2 Abdomen: nondistended, normoactive bowel sounds, soft, minimally tender to palpation in right upper quadrant Extremities: no edema, erythema, or tenderness to palpation, DP pulses 2+ bilaterally Skin: no rashes or lesions, warm and dry Psych: appropriate mood and affect, judgment and insight intact Objective Data Vital Signs Vital Signs: Vital Signs - 24 hr 04/09/22 17:56 04/09/22 19:09 04/09/22 19:15 Temperature 97.6 F 98.3 F Pulse Rate 65 63 Respiratory Rate 18 16 Blood Pressure 191/66 H 189/63 H 85/45 L Pulse Oximetry 100 99 Oxygen Delivery Room Air 04/09/22 18:22 04/09/22 18:30 04/09/22 18:31 Temperature Pulse Rate 63 63 62 Respiratory Rate 16 18 19 Blood Pressure 165/60 H Pulse Oximetry 99 100 99 Oxygen Delivery 04/09/22 18:
[2022-04-10 19:17] VITALS: BP 120/52; PULSE 55; RESP 18; TEMP 36.2; O2SAT 98
[2022-04-10 19:47] VITALS: PULSE 55; RESP 18; O2SAT 98
[2022-04-11] MEDS: SODIUM CHLORIDE 0.9% IV 1,000 ML 75 ML IV CONT ×2 (01:00→12:38)
[2022-04-11 03:57] VITALS: BP 109/51; PULSE 54; RESP 17; TEMP 36.6; O2SAT 99
[2022-04-11 05:23] LABS: Hemoglobin 9.6 g/dL (12.0-15.0); Mean Corpuscular Hemoglobin 30.4 pg (26-34); Mean Corpuscular Volume 94.9 fl (80-100); Mean Platelet Volume 11.4 fl (7.4-10.4); Platelet Count Result 172 k/mm3 (150-375); Red Blood Count 3.16 M/mm3 (4.2-5.4); Red Cell Distribution Width 12.7 % (11.5-14.5); White Blood Count 3.4 K/mm3 (4.5-10.0)
[2022-04-11 05:42] LABS: Albumin Level 3.6 g/dL (3.5-5.1); Alkaline Phosphatase 348 U/L (38-126); Anion Gap 9 mmol/L (8-16); Bilirubin,Total 2.9 mg/dL (0.2-1.3); Blood Urea Nitrogen 12 mg/dL (7-17); Calcium 8.5 mg/dL (8.4-10.2); Carbon Dioxide 24 mmol/L (22-30); Chloride 109 mmol/L (98-107); Estimated CRCL calculation 40 ml/min; Estimated Glomerular Filt Rate 48; Glucose 89 mg/dL (65-110); Sodium 142 mmol/L (137-145)
[2022-04-11 06:24] LABS: Alanine Aminotransferase 1788 U/L (6-35); Aspartate Amino Transferase 1643 U/L (14-36)
[2022-04-11 09:41] VITALS: RESP 18; O2SAT 99
[2022-04-11] MEDS: SERTRALINE HCL 50 MG TABLET PO (09:49)
[2022-04-11] MEDS: PANTOPRAZOLE 40 MG TABLET PO (09:49)
[2022-04-11] MEDS: TICAGRELOR 90 MG TABLET PO ×2 (09:49→20:56)
[2022-04-11] MEDS: ASPIRIN 81 MG CHEWABLE TABLET PO (09:50)
[2022-04-11] MEDS: GABAPENTIN 300 MG CAPSULE 600 MG PO ×4 (09:54→20:56)
[2022-04-11 09:55] VITALS: PULSE 64
[2022-04-11] MEDS: HEPARIN SODIUM 5,000 UNITS/ML VIAL 5000 UNITS SUB-Q ×2 (09:55→20:57)
[2022-04-11] MEDS: METOPROLOL SUCCINATE EXT REL 12.5 MG TABCR PO (09:55)
--- NOTE | 2022-04-11 13:28 | WPDGICN ---
Assessment and Plan Assessment and plan (1) Elevated liver enzymes: Code(s): R74.8 - Abnormal levels of other serum enzymes Status: Acute Assessment and Plan: history most likely consistent with stone that passed, MRCP reviewed and no choledocholithiasis. No h/o CHF, no alcohol use, no acetaminophen, hepatitis panel negative if she is symptomatically doing better and liver enzymes keep trending down we can continue to monitor, otherwise we can assess with ERCP tolerating diet and feeling better (2) Dilated bile duct: Code(s): K83.8 - Other specified diseases of biliary tract Status: Acute Assessment and Plan: mildly dilated, probably alreadyt passed stone trend lft's (3) Upper abdominal pain: Code(s): R10.10 - Upper abdominal pain, unspecified Status: Acute Assessment and Plan: improved (4) S/P cholecystectomy: Code(s): Z90.49 - Acquired absence of other specified parts of digestive tract Status: Acute (5) Acute renal failure: Code(s): N17.9 - Acute kidney failure, unspecified Status: Acute Assessment and Plan: better, monitor (6) Pancreatic cyst: Code(s): K86.2 - Cyst of pancreas Status: Acute Assessment and Plan: we can repeat another MRI pancreas in 6 months or so GI Consult Note Consult date/time: 04/11/22 13:28 Reason for consult: elevated liver enzymes HPI: Tiera Lobato is a 76 year old female?with past medical history significant for coronary artery disease status post coronary artery bypass graft X 2, osteoporosis, hypertension. She came to the emergency room because new onset of epigastric pain with radiation to the back, about 6/10 in intensity, burning sensation. Then also had nausea. Denies any fever, chills, no diarrhea. She was found to have BUN 25 creatinine 1.5 AST 481 ALT 205 alk phos 279 but then liver enzymes 4000's wiht bili 2.5. Today transminases coming down 1500. Denies any alcohol use, no acetaminophen. CT scan reviewed and showed interval intrahepatic and extra hepatic bile duct dilatation since 10/29/2017, consider further evaluation, including possible MRCP as clinically appropriate, status post cholecystectomy. Finally MRCP was done, no choledocholithiasis. Abdominal pain better, tolerating liquid diet. Review of Systems Review of Systems: EPIGASTRIC ABDOMINAL PAIN Constitutional: Constitutional: Denies chills, Denies fever(s), Denies malaise and Denies weakness Eyes: Eyes: Denies change in vision ENT: Denies dysphagia, Denies vertigo, Denies dizziness and Denies odynophagia Cardiovascular: Cardiovascular: Denies chest pain, Denies pedal edema, Denies irregular heart rhythm, Denies leg edema, Denies lightheadedness, Denies palpitations and Denies dyspnea on exertion Respiratory: Respiratory: Denies chest congestion, Denies cough and Denies dyspnea Gastrointestinal: Gastrointestinal: Reports abdominal pain, Denies dyspepsia, Denies heartburn, Denies diarrhea, Reports nausea and Denies vomiting Genitourinary: Genitourinary: Denies dysuria Musculoskeletal: Musculoskeletal: Denies myalgias Integumentary/Breasts: Skin/Breast: Denies rash Neurologic: Denies vertigo, Denies dizziness, Denies focal weakness and Denies Sensory deficit (Neuro) Psychiatric: Psychiatric: Reports no additional psychiatric complaints and Reports as per HPI Endocrine: Endocrine: Denies cold intolerance, Denies flushing, Denies heat intolerance, Denies polyphagia, Denies polydipsia and Denies palpitations Hematologic/Lymphatic: Hematologic/Lymphatic: Reports no additional hematologic/lymphatic complaints and Reports as per HPI Allergic/Immunologic: Allergic/Immunologic: Reports no additional allergic/immunologic complaints and Reports as per HPI PMFSH Past Medical History Medical History (Updated 04/11/22 @ 13:37 by Tre Weinberg MD) Acute renal failure Bowel perforation Compression f
[2022-04-11 13:43] VITALS: BP 130/53; PULSE 65; RESP 18; TEMP 37.1; O2SAT 99
--- NOTE | 2022-04-11 15:35 | P.PNIM_ITS ---
Progress Note: A&P Assessment and Plan (1) Abdominal pain: Code(s): R10.9 - Unspecified abdominal pain Status: Acute Assessment and Plan: Presented with abdominal discomfort. CTA showed biliary ductal dilation and patient with elevated liver enzymes * MRCP completed 04/10 revealed mild intrahepatic and extrahepatic biliary duct dilation status post cholecystectomy with no evidence of choledocholithiasis * there is a 13 mm cystic lesion of the pancreas but this is not likely to be contributing to her symptoms. * lipase very mildly elevated at 320 * appreciate GI consultation * likely passed stone * advance diet. Continue low fiber diet * discontinue IV fluids as patient is tolerating PO intake. * supportive care. Analgesics and antiemetics available as neede (2) Transaminitis: Code(s): R74.01 - Elevation of levels of liver transaminase levels Status: Acute Assessment and Plan: Marked elevation. * total bilirubin 2.9 * AST improved to 1643 * ALT improved to 1788 * no evidence of choledocholithiasis or cholangitis * likely a passed stone * hepatitis panel negative * appreciate GI evaluation * continue to trend LFTs (3) CLAUDIA (acute kidney injury): Code(s): N17.9 - Acute kidney failure, unspecified Status: Acute Assessment and Plan: resolved. * creatinine elevated up to 1.5, improved to 1.1 with IV fluid rehydration * continue with gentle IV fluids while NPO * monitor renal function closely (4) CAD (coronary artery disease): Code(s): I25.10 - Atherosclerotic heart disease of [place] coronary artery without angina pectoris Status: Acute Assessment and Plan: patient with recent admission for chest pain and had extensive workup * no chest pain at this time * continue with outpatient follow-up with her retail coordinator. * Continue aspirin, Brilinta, atorvastatin (5) Hypertension: Code(s): I10 - Essential (primary) hypertension Status: Acute Assessment and Plan: blood pressures are stable. Last BP 130/53 * continue metoprolol * resume lisinopril Subjective Date/time seen: 04/11/22 15:35 Interval history: date of service: 04/10/2022 Tiera Lobato is a 76-year-old female with a history of hypertension, hyperlipidemia, thoracic compression fracture and bowel perforation who is seen in follow-up for abdominal pain. She is doing well today. She does have some mild epigastric discomfort that she describes as an aching discomfort. She denies burning. No lower abdominal pain. No fevers. Does have some mild chills and had hot flashes yesterday. She denies chest pain. Denies dizziness or lightheadedness. She has not been out of bed today. Review of Systems Review of Systems: All systems reviewed & are unremarkable except as noted in HPI and below Exam Narrative: General: Well-nourished, well-appearing 76-year-old female, sitting up in bed, comfortable, NARD Neuro: awake, alert and oriented x4, speech clear, no focal neuro deficits noted HEENMT: normocephalic, atraumatic, EOMI, sclerae anicteric Respiratory: clear to auscultation bilaterally, nonlabored breathing Cardio: regular rate, regular rhythm with S1-S2 Abdomen: nondistended, normoactive bowel sounds, soft, minimally tender to palpation in epigastric region Extremities: no edema, erythema, or tenderness to palpation, DP pulses 2+ bilaterally Skin: no rashes or lesions, warm and dry Psych: a
--- NOTE | 2022-04-11 15:35 | PM.IMPN ---
Progress Note: A&P Assessment and Plan (1) Abdominal pain: Code(s): R10.9 - Unspecified abdominal pain Status: Acute Assessment and Plan: Presented with abdominal discomfort. CTA showed biliary ductal dilation and patient with elevated liver enzymes MRCP completed 04/10 revealed mild intrahepatic and extrahepatic biliary duct dilation status post cholecystectomy with no evidence of choledocholithiasis there is a 13 mm cystic lesion of the pancreas but this is not likely to be contributing to her symptoms. lipase very mildly elevated at 320 appreciate GI consultation likely passed stone advance diet. Continue low fiber diet discontinue IV fluids as patient is tolerating PO intake. supportive care. Analgesics and antiemetics available as neede (2) Transaminitis: Code(s): R74.01 - Elevation of levels of liver transaminase levels Status: Acute Assessment and Plan: Marked elevation. total bilirubin 2.9 AST improved to 1643 ALT improved to 1788 no evidence of choledocholithiasis or cholangitis likely a passed stone hepatitis panel negative appreciate GI evaluation continue to trend LFTs (3) CLAUDIA (acute kidney injury): Code(s): N17.9 - Acute kidney failure, unspecified Status: Acute Assessment and Plan: resolved. creatinine elevated up to 1.5, improved to 1.1 with IV fluid rehydration continue with gentle IV fluids while NPO monitor renal function closely (4) CAD (coronary artery disease): Code(s): I25.10 - Atherosclerotic heart disease of [place] coronary artery without angina pectoris Status: Acute Assessment and Plan: patient with recent admission for chest pain and had extensive workup no chest pain at this time continue with outpatient follow-up with her county or city auditor. Continue aspirin, Brilinta, atorvastatin (5) Hypertension: Code(s): I10 - Essential (primary) hypertension Status: Acute Assessment and Plan: blood pressures are stable. Last BP 130/53 continue metoprolol resume lisinopril Subjective Date/time seen: 04/11/22 15:35 Interval history: date of service: 04/10/2022 Tiera Lobato is a 76-year-old female with a history of hypertension, hyperlipidemia, thoracic compression fracture and bowel perforation who is seen in follow-up for abdominal pain. She is doing well today. She does have some mild epigastric discomfort that she describes as an aching discomfort. She denies burning. No lower abdominal pain. No fevers. Does have some mild chills and had hot flashes yesterday. She denies chest pain. Denies dizziness or lightheadedness. She has not been out of bed today. Review of Systems Review of Systems: All systems reviewed & are unremarkable except as noted in HPI and below Exam Narrative: General: Well-nourished, well-appearing 76-year-old female, sitting up in bed, comfortable, NARD Neuro: awake, alert and oriented x4, speech clear, no focal neuro deficits noted HEENMT: normocephalic, atraumatic, EOMI, sclerae anicteric Respiratory: clear to auscultation bilaterally, nonlabored breathing Cardio: regular rate, regular rhythm with S1-S2 Abdomen: nondistended, normoactive bowel sounds, soft, minimally tender to palpation in epigastric region Extremities: no edema, erythema, or tenderness to palpation, DP pulses 2+ bilaterally Skin: no rashes or lesions, warm and dry Psych: appropriate mood and affect, judgment and insight intact Objective Data Vital Signs Vital Signs: Vital Signs - 24 hr 04/10/22 19:17 04/10/22 19:47 04/11/22 03:57 Temperature 97.1 F L 97.8 F Pulse Rate 55 L 55 L 54 L Respiratory Rate 18 18 17 Blood Pressure 120/52 L 109/51 L Pulse Oximetry 98 98 99 Oxygen Delivery Room Air 04/11/22 09:41 04/11/22 09:55 04/11/22 13:43 Temperature 98.7 F Pulse Rate 64 65 Respiratory Rate 18 18 Blood Pr
[2022-04-11 20:00] VITALS: PULSE 63; RESP 16; O2SAT 98
[2022-04-11] MEDS: ACETAMINOPHEN 325 MG TABLET 650 MG PO (21:00)
[2022-04-11 21:07] VITALS: BP 141/72; PULSE 63; RESP 16; TEMP 37; O2SAT 98
[2022-04-12 05:35] LABS: Basophils Percent Auto 0.9 % (0.2-1.2); Eosinophils Absolute Auto 0.3 K/mm3 (0-0.3); Eosinophils Percent Auto 6.8 % (0-4.4); Hematocrit 31.1 % (37.0-47.0); Hemoglobin 10.1 g/dL (12.0-15.0); Immature Granulocyte Absolute 0.02 K/mm3 (0.00-0.031); Immature Granulocyte Percent A 0.5 % (0-0.5); Lymphocytes Absolute Auto 0.98 K/mm3 (0.9-3.2); Mean Corpuscular HGB Conc 32.5 g/dl (32-36); Mean Corpuscular Hemoglobin 30.9 pg (26-34); Mean Corpuscular Volume 95.1 fl (80-100); Mean Platelet Volume 11.6 fl (7.4-10.4); Monocytes Absolute Auto 0.6 K/mm3 (0.1-0.6); Neutrophils Absolute Auto 2.3 K/mm3 (1.3-6.7); Neutrophils Percent Auto 53.8 % (45.5-73.1); Platelet Count Result 193 k/mm3 (150-375); Red Blood Count 3.27 M/mm3 (4.2-5.4); Red Cell Distribution Width 12.7 % (11.5-14.5); White Blood Count 4.3 K/mm3 (4.5-10.0)
[2022-04-12 05:54] LABS: Anion Gap 9 mmol/L (8-16); Blood Urea Nitrogen 8 mg/dL (7-17); Calcium 8.8 mg/dL (8.4-10.2); Carbon Dioxide 20 mmol/L (22-30); Chloride 109 mmol/L (98-107); Estimated CRCL calculation 48 ml/min; Estimated Glomerular Filt Rate > 60; Glucose 92 mg/dL (65-110); Potassium 3.8 mmol/L (3.4-5.0); Sodium 138 mmol/L (137-145)
[2022-04-12 06:07] VITALS: BP 147/64; PULSE 70; RESP 16; TEMP 36.5; O2SAT 99
[2022-04-12 07:57] VITALS: RESP 16; O2SAT 99
[2022-04-12 09:44] VITALS: PULSE 68
[2022-04-12] MEDS: METOPROLOL SUCCINATE EXT REL 12.5 MG TABCR PO (09:44)
[2022-04-12] MEDS: ASPIRIN 81 MG CHEWABLE TABLET PO (09:44)
[2022-04-12] MEDS: SERTRALINE HCL 50 MG TABLET PO (09:44)
[2022-04-12] MEDS: lisinopriL 5 MG TABLET PO (09:44)
[2022-04-12] MEDS: HEPARIN SODIUM 5,000 UNITS/ML VIAL 5000 UNITS SUB-Q ×2 (09:44→20:48)
[2022-04-12] MEDS: GABAPENTIN 300 MG CAPSULE 600 MG PO ×4 (09:45→20:47)
[2022-04-12] MEDS: PANTOPRAZOLE 40 MG TABLET PO (09:45)
[2022-04-12] MEDS: TICAGRELOR 90 MG TABLET PO ×2 (09:45→20:47)
[2022-04-12 10:42] LABS: Albumin Level 3.6 g/dL (3.5-5.1); Alkaline Phosphatase 436 U/L (38-126); Bilirubin,Total 1.6 mg/dL (0.2-1.3)
[2022-04-12 10:47] LABS: Alanine Aminotransferase 1223 U/L (6-35); Aspartate Amino Transferase 764 U/L (14-36)
[2022-04-12 14:34] VITALS: BP 127/58; PULSE 76; RESP 14; TEMP 36.5; O2SAT 98
--- NOTE | 2022-04-12 14:59 | WPDGIPROGNO ---
Progress Note: A&P Assessment and Plan (1) Upper abdominal pain: Code(s): R10.10 - Upper abdominal pain, unspecified Status: Acute Assessment and Plan: almost gone, doing better and eating more (2) Elevated liver enzymes: Code(s): R74.8 - Abnormal levels of other serum enzymes Status: Acute Assessment and Plan: slowly trending down mrcp without choledocholithiasis- ? passed stone will complete liver work up, hepatitis panel negative (3) Dilated bile duct: Code(s): K83.8 - Other specified diseases of biliary tract Status: Acute Assessment and Plan: mildly dilated but no other findings (4) Pancreatic cyst: Code(s): K86.2 - Cyst of pancreas Status: Acute Assessment and Plan: small size follow-up with imaging as outpatient (5) S/P cholecystectomy: Code(s): Z90.49 - Acquired absence of other specified parts of digestive tract Status: Acute Subjective Date/time seen: 04/12/22 14:59 Interval history: she is feeling better with minimal pain, trying to eat more Review of Systems Review of Systems: All systems reviewed & are unremarkable except as noted in HPI and below Exam Const: General: comfortable and no acute distress HENMT: Face/Nose/Sinus: Normal nares present Eyes: General: appearance normal, both eyes and all related structures Neck: Neck: no JVD Resp: Auscultation: clear to auscultation bilaterally Cardio: Rate: regular rate Rhythm: regular rhythm GI: Inspection: non-distended GI Palp: Yes Soft to palpation and No Tenderness to palpation present (GI) Skin: General skin exam: normal color Neuro: General: gait normal Speech: normal speech Extrem: General: normal to inspection Psych: Mental Status: mental status grossly normal Objective Data Vital Signs Vital Signs: Vital Signs - 24 hr 04/11/22 21:07 04/11/22 20:00 04/12/22 06:07 Temperature 98.6 F 97.7 F Pulse Rate 63 63 70 Respiratory Rate 16 16 16 Blood Pressure 141/72 H 147/64 H Pulse Oximetry 98 98 99 Oxygen Delivery Room Air 04/12/22 07:57 04/12/22 09:44 Temperature Pulse Rate 68 Respiratory Rate 16 Blood Pressure Pulse Oximetry 99 Oxygen Delivery Room Air Intake/Output Intake/Output: Intake & Output 04/09/22 04/10/22 04/11/22 10/28/22 23:59 23:59 23:59 23:59 Intake Total 7858 208 9913 740 Output Total 800 2300 Balance 1000 -700 2044 740 Meds/Results Medications: Active Medications Generic Name Dose Route Start Last Admin Trade Name Freq PRN Reason Stop Dose Admin Acetaminophen 650 mg 04/10/22 09:38 04/11/22 21:00 Acetaminophen 325 Mg Tablet PO 650 mg Q6H PRN Administration Pain (Scale Score 1-3) Hydrocodone Bitart/Acetaminophen 1 tab 04/10/22 09:38 04/10/22 20:39 Hydrocodone/Acetaminophen (*Crx) 5-325 Mg Tablet PO 1 tab Q6H PRN Administration Pain Rated 4-6 Aspirin 81 mg 04/10/22 09:00 04/12/22 09:44 Aspirin 81 Mg Chewable Tablet PO 81 mg DAILY AGUS Administration Diclofenac Sodium 75 mg 04/10/22 09:00 Diclofenac Sod 75 Mg Tablet.Ec PO BID AGUS Gabapentin 600 mg 04/10/22 09:00 04/12/22 12:38 Gabapentin 300 Mg Capsule PO 600 mg QID AGUS Administration Heparin Sodium (Porcine) 5,000 units 04/10/22 09:00 04/12/22 09:44 Heparin Sodium 5,000 Units/Ml Vial SUB-Q 5,000 units Q12HR AGUS Administration Lisinopril 5 mg 04/12/22 09:00 04/12/22 09:44 Lisinopril 5 Mg Tablet PO 5 mg QAM AGUS Administration Metoprolol Succinate 12.5 mg 04/10/22 09:00 04/12/22 09:44 Metoprolol Succinate Ext Rel 12.5 Mg Tabcr PO 12.5 mg DAILY AGUS Administration Pantoprazole Sodium 40 mg 04/10/22 09:00 04/12/22 09:45 Pantoprazole 40 Mg Tablet PO 40 mg QAM AGUS Administration Sertraline HCl 50 mg 04/10/22 09:00 04/12/22 09:44 Sertraline Hcl 50 Mg Tablet PO 50 mg DAILY AGUS Administration Ticagrelor
--- NOTE | 2022-04-12 15:14 | P.PNIM_ITS ---
Progress Note: A&P Assessment and Plan (1) Abdominal pain: Code(s): R10.9 - Unspecified abdominal pain Status: Acute Assessment and Plan: Presented with abdominal discomfort. CTA showed biliary ductal dilation and patient with elevated liver enzymes * MRCP completed 04/10 revealed mild intrahepatic and extrahepatic biliary duct dilation status post cholecystectomy with no evidence of choledocholithiasis * there is a 13 mm cystic lesion of the pancreas but this is not likely to be contributing to her symptoms. * lipase very mildly elevated at 320 * appreciate GI consultation * likely passed stone * Continue low fiber diet * supportive care. Analgesics and antiemetics available as needed. * pain improved (2) Transaminitis: Code(s): R74.01 - Elevation of levels of liver transaminase levels Status: Acute Assessment and Plan: Marked elevation, improving today * total bilirubin down to 1.6 * AST improved to 744 * ALT improved to 1223 * no evidence of choledocholithiasis or cholangitis * likely a passed stone * hepatitis panel negative * GREGORY and ceruloplasmin pending * appreciate GI evaluation * continue to trend LFTs. Hopeful discharge tomorrow if continued improvement (3) CLAUDIA (acute kidney injury): Code(s): N17.9 - Acute kidney failure, unspecified Status: Acute Assessment and Plan: resolved. 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 * Continue aspirin, Brilinta, atorvastatin (5) Hypertension: Code(s): I10 - Essential (primary) hypertension Status: Acute Assessment and Plan: blood pressures are stable. Last BP 147/64 * continue metoprolol and lisinopril Subjective Date/time seen: 04/12/22 15:14 Interval history: date of service: 04/10/2022 Tiera Lobato is a 76-year-old female with a history of hypertension, hyperlipidemia, thoracic compression fracture who is seen in follow-up for abdominal pain and transaminitis. She endorses some epigastric soreness that she states has worsened with inspiration. She denies nausea or vomiting. She had an episode of dry heaves yesterday. No fevers or chills. She has decreased appetite. She states she is trying to eat a bit more today. She denies any difficulty with ambulation. No urinary symptoms. No shortness of breath, cough, chest pain. Review of Systems Review of Systems: All systems reviewed & are unremarkable except as noted in HPI and below Exam Narrative: General: Well-nourished, well-appearing 76-year-old female, sitting up in bed, comfortable, NARD Neuro: awake, alert and oriented x4, speech clear, no focal neuro deficits noted HEENMT: normocephalic, atraumatic, EOMI, sclerae anicteric Respiratory: clear to auscultation bilaterally, nonlabored breathing Cardio: regular rate, regular rhythm with S1-S2 Abdomen: nondistended, normoactive bowel sounds, soft, nontender to palpation Extremities: no edema, erythema, or tenderness to palpation, DP pulses 2+ bilaterally Skin: no rashes or lesions, warm and dry
--- NOTE | 2022-04-12 15:14 | PM.IMPN ---
Progress Note: A&P Assessment and Plan (1) Abdominal pain: Code(s): R10.9 - Unspecified abdominal pain Status: Acute Assessment and Plan: Presented with abdominal discomfort. CTA showed biliary ductal dilation and patient with elevated liver enzymes MRCP completed 04/10 revealed mild intrahepatic and extrahepatic biliary duct dilation status post cholecystectomy with no evidence of choledocholithiasis there is a 13 mm cystic lesion of the pancreas but this is not likely to be contributing to her symptoms. lipase very mildly elevated at 320 appreciate GI consultation likely passed stone Continue low fiber diet supportive care. Analgesics and antiemetics available as needed. pain improved (2) Transaminitis: Code(s): R74.01 - Elevation of levels of liver transaminase levels Status: Acute Assessment and Plan: Marked elevation, improving today total bilirubin down to 1.6 AST improved to 744 ALT improved to 1223 no evidence of choledocholithiasis or cholangitis likely a passed stone hepatitis panel negative GREGORY and ceruloplasmin pending appreciate GI evaluation continue to trend LFTs. Hopeful discharge tomorrow if continued improvement (3) CLAUDIA (acute kidney injury): Code(s): N17.9 - Acute kidney failure, unspecified Status: Acute Assessment and Plan: resolved. 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 Continue aspirin, Brilinta, atorvastatin (5) Hypertension: Code(s): I10 - Essential (primary) hypertension Status: Acute Assessment and Plan: blood pressures are stable. Last BP 147/64 continue metoprolol and lisinopril Subjective Date/time seen: 04/12/22 15:14 Interval history: date of service: 04/10/2022 Tiera Lobato is a 76-year-old female with a history of hypertension, hyperlipidemia, thoracic compression fracture who is seen in follow-up for abdominal pain and transaminitis. She endorses some epigastric soreness that she states has worsened with inspiration. She denies nausea or vomiting. She had an episode of dry heaves yesterday. No fevers or chills. She has decreased appetite. She states she is trying to eat a bit more today. She denies any difficulty with ambulation. No urinary symptoms. No shortness of breath, cough, chest pain. Review of Systems Review of Systems: All systems reviewed & are unremarkable except as noted in HPI and below Exam Narrative: General: Well-nourished, well-appearing 76-year-old female, sitting up in bed, comfortable, NARD Neuro: awake, alert and oriented x4, speech clear, no focal neuro deficits noted HEENMT: normocephalic, atraumatic, EOMI, sclerae anicteric Respiratory: clear to auscultation bilaterally, nonlabored breathing Cardio: regular rate, regular rhythm with S1-S2 Abdomen: nondistended, normoactive bowel sounds, soft, nontender to palpation Extremities: no edema, erythema, or tenderness to palpation, DP pulses 2+ bilaterally Skin: no rashes or lesions, warm and dry Psych: appropriate mood and affect, judgment and insight intact Objective Data Vital Signs Vital Signs: Vital Signs - 24 hr 04/11/22 21:07 04/11/22 20:00 04/12/22 06:07 Temperature 98.6 F 97.7 F Pulse Rate 63 63 70 Respiratory Rate 16 16 16 Blood Pressure 141/72 H 147/64 H Pulse Oximetry 98 98 99 Oxygen Delivery Room Air 04/12/22 07:57 04/12/22 09:44 Temperature Pulse Rate 68 Respiratory Rate 16 Blood Pressure Pulse O
[2022-04-12 20:18] VITALS: BP 145/76; PULSE 84; RESP 14; TEMP 36.6; O2SAT 98
[2022-04-13 05:41] VITALS: BP 135/70; PULSE 76; RESP 14; TEMP 36.6; O2SAT 98
[2022-04-13 06:19] LABS: Hematocrit 33.5 % (37.0-47.0); Hemoglobin 10.8 g/dL (12.0-15.0); Mean Corpuscular HGB Conc 32.2 g/dl (32-36); Mean Corpuscular Hemoglobin 30.7 pg (26-34); Mean Corpuscular Volume 95.2 fl (80-100); Mean Platelet Volume 11.6 fl (7.4-10.4); Platelet Count Result 224 k/mm3 (150-375); Red Blood Count 3.52 M/mm3 (4.2-5.4); Red Cell Distribution Width 12.8 % (11.5-14.5); White Blood Count 4.3 K/mm3 (4.5-10.0)
[2022-04-13 06:46] LABS: Alkaline Phosphatase 481 U/L (38-126); Anion Gap 17 mmol/L (8-16); Aspartate Amino Transferase 361 U/L (14-36); Bilirubin,Total 1.4 mg/dL (0.2-1.3); Blood Urea Nitrogen 8 mg/dL (7-17); Calcium 9.7 mg/dL (8.4-10.2); Carbon Dioxide 20 mmol/L (22-30); Chloride 103 mmol/L (98-107); Estimated CRCL calculation 44 ml/min; Estimated Glomerular Filt Rate 54; Glucose 91 mg/dL (65-110); Potassium 3.5 mmol/L (3.4-5.0); Sodium 140 mmol/L (137-145)
[2022-04-13 07:41] VITALS: BP 144/66; PULSE 72; RESP 14; TEMP 36.6; O2SAT 98
[2022-04-13 07:45] VITALS: BP 146/68; PULSE 72
[2022-04-13] MEDS: ONDANSETRON INJ 4 MG/2 ML VIAL IV PUSH (08:37)
[2022-04-13 08:41] LABS: Alanine Aminotransferase 845 U/L (6-35)
[2022-04-13 10:19] VITALS: PULSE 72
[2022-04-13] MEDS: SERTRALINE HCL 50 MG TABLET PO (10:19)
[2022-04-13] MEDS: GABAPENTIN 300 MG CAPSULE 600 MG PO ×4 (10:19→21:02)
[2022-04-13] MEDS: METOPROLOL SUCCINATE EXT REL 12.5 MG TABCR PO (10:19)
[2022-04-13] MEDS: ASPIRIN 81 MG CHEWABLE TABLET PO (10:19)
[2022-04-13] MEDS: lisinopriL 5 MG TABLET PO (10:19)
[2022-04-13] MEDS: HEPARIN SODIUM 5,000 UNITS/ML VIAL 5000 UNITS SUB-Q ×2 (10:20→21:02)
[2022-04-13] MEDS: PANTOPRAZOLE 40 MG TABLET PO (10:20)
[2022-04-13] MEDS: TICAGRELOR 90 MG TABLET PO ×2 (10:20→21:02)
[2022-04-13] MEDS: ACETAMINOPHEN 325 MG TABLET 650 MG PO (10:25)
--- NOTE | 2022-04-13 12:55 | WPDGIPROGNO ---
Progress Note: A&P Assessment and Plan (1) Upper abdominal pain: Code(s): R10.10 - Upper abdominal pain, unspecified Status: Acute Assessment and Plan: almost gone, doing better and eating more (2) Elevated liver enzymes: Code(s): R74.8 - Abnormal levels of other serum enzymes Status: Acute Assessment and Plan: slowly trending down mrcp without choledocholithiasis- ? passed stone (no history of new medications, fever, tylenol, alcohol, etc) pending hitesh, ama, etc but liver enzymes coming down (3) Dilated bile duct: Code(s): K83.8 - Other specified diseases of biliary tract Status: Acute Assessment and Plan: mildly dilated but no other findings, no stones. Wonder if she passed stone (4) Pancreatic cyst: Code(s): K86.2 - Cyst of pancreas Status: Acute Assessment and Plan: small size follow-up with imaging as outpatient (5) S/P cholecystectomy: Code(s): Z90.49 - Acquired absence of other specified parts of digestive tract Status: Acute Subjective Date/time seen: 04/13/22 12:55 Interval history: less pain but still not eating much, overall better since admission Review of Systems Review of Systems: All systems reviewed & are unremarkable except as noted in HPI and below Exam Const: General: comfortable and no acute distress HENMT: Face/Nose/Sinus: Normal nares present Eyes: General: appearance normal, both eyes and all related structures Neck: Neck: no JVD Resp: Auscultation: clear to auscultation bilaterally Cardio: Rate: regular rate Rhythm: regular rhythm GI: Inspection: non-distended GI Palp: Yes Soft to palpation and No Tenderness to palpation present (GI) Skin: General skin exam: normal color Neuro: General: gait normal Speech: normal speech Extrem: General: normal to inspection Psych: Mental Status: mental status grossly normal Objective Data Vital Signs Vital Signs: Vital Signs - 24 hr 04/12/22 14:34 04/12/22 20:18 04/13/22 05:41 Temperature 97.7 F 97.8 F 97.9 F Pulse Rate 76 84 76 Respiratory Rate 14 14 14 Blood Pressure 127/58 L 145/76 H 135/70 Pulse Oximetry 98 98 98 Oxygen Delivery 04/13/22 07:41 04/13/22 07:45 04/13/22 08:14 Temperature 97.8 F Pulse Rate 72 72 Respiratory Rate 14 Blood Pressure 144/66 H 146/68 H Pulse Oximetry 98 Oxygen Delivery Room Air 04/13/22 10:19 Temperature Pulse Rate 72 Respiratory Rate Blood Pressure Pulse Oximetry Oxygen Delivery Intake/Output Intake/Output: Intake & Output 04/10/22 04/11/22 04/12/22 04/13/22 23:59 23:59 23:59 23:59 Intake Total 100 4344 1660 418 Output Total 800 2300 550 300 Balance -700 2044 1110 118 Meds/Results Medications: Active Medications Generic Name Dose Route Start Last Admin Trade Name Freq PRN Reason Stop Dose Admin Acetaminophen 650 mg 04/10/22 09:38 04/13/22 10:25 Acetaminophen 325 Mg Tablet PO 650 mg Q6H PRN Administration Pain (Scale Score 1-3) Hydrocodone Bitart/Acetaminophen 1 tab 04/10/22 09:38 04/10/22 20:39 Hydrocodone/Acetaminophen (*Crx) 5-325 Mg Tablet PO 1 tab Q6H PRN Administration Pain Rated 4-6 Aspirin 81 mg 04/10/22 09:00 04/13/22 10:19 Aspirin 81 Mg Chewable Tablet PO 81 mg DAILY AGUS Administration Diclofenac Sodium 75 mg 04/10/22 09:00 Diclofenac Sod 75 Mg Tablet.Ec PO BID AGUS Gabapentin 600 mg 04/10/22 09:00 04/13/22 10:19 Gabapentin 300 Mg Capsule PO 600 mg QID AGUS Administration Heparin Sodium (Porcine) 5,000 units 04/10/22 09:00 04/13/22 10:20 Heparin Sodium 5,000 Units/Ml Vial SUB-Q 5,000 units Q12HR AGUS Administration Lisinopril 5 mg 04/12/22 09:00 04/13/22 10:19 Lisinopril 5 Mg Tablet PO 5 mg QAM AGUS Administration Metoprolol Succinate 12.5 mg 04/10/22 09:00 04/13/22 10:19 Metoprolol Succinate Ext Rel 12.5 Mg Tabcr PO 12.5 mg DAILY AGUS Ad
--- NOTE | 2022-04-13 13:31 | P.PNIM_ITS ---
Progress Note: A&P Assessment and Plan (1) Abdominal pain: Code(s): R10.9 - Unspecified abdominal pain Status: Acute Assessment and Plan: Presented with abdominal discomfort. CTA showed biliary ductal dilation and patient with elevated liver enzymes * MRCP completed 04/10 revealed mild intrahepatic and extrahepatic biliary duct dilation status post cholecystectomy with no evidence of choledocholithiasis * there is a 13 mm cystic lesion of the pancreas but this is not likely to be contributing to her symptoms. * lipase very mildly elevated at 320 * appreciate GI consultation * Continue low fiber diet * supportive care. Analgesics and antiemetics available as needed. * pain improved (2) Transaminitis: Code(s): R74.01 - Elevation of levels of liver transaminase levels Status: Acute Assessment and Plan: Marked elevation, improving today * total bilirubin down to 1.4 * AST improved to 361 * ALT improved to 845 * no evidence of choledocholithiasis or cholangitis * likely a passed stone * hepatitis panel negative * GREGORY and ceruloplasmin pending * appreciate GI evaluation * continue to trend LFTs (3) CLAUDIA (acute kidney injury): Code(s): N17.9 - Acute kidney failure, unspecified Status: Acute Assessment and Plan: resolved. 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 * Continue aspirin, Brilinta, atorvastatin (5) Hypertension: Code(s): I10 - Essential (primary) hypertension Status: Acute Assessment and Plan: blood pressures are stable. Last BP 146/68 * continue metoprolol and lisinopril Subjective Date/time seen: 04/13/22 13:31 Interval history: Date of service: 04/13/2022 Tiera Lobato is a 76-year-old female with a history of hypertension, hyperlipidemia, thoracic compression fracture who is seen in follow-up for abdominal pain and transaminitis. She felt poorly this morning. She had an acute flare of her chronic back and leg pain and was very uncomfortable. She also had nausea and dry heaves. This improved with Zofran but she reports feeling clammy after taking Zofran. She also had some lightheadedness that has resolved. She f eels fatigued. She denies abdominal pain. No fevers or chills. Denies SOB. No urinary symptoms. Reports regular bowel movements and passing flatus. Review of Systems Review of Systems: All systems reviewed & are unremarkable except as noted in HPI and below Exam Narrative: General: well-nourished, well-appearing 76-year-old female, sitting up in bed, comfortable, NARD Neuro: awake, alert and oriented x4, speech clear, no focal neuro deficits noted HEENMT: normocephalic, atraumatic, EOMI, sclerae anicteric Respiratory: clear to auscultation bilaterally, nonlabored breathing Cardio: regular rate, regular rhythm with S1-S2 Abdomen: nondistended, normoactive bowel sounds, soft, nontender to palpation Extremities: no edema, erythema, or tenderness to palpation, DP pulses 2+ bilaterally Skin: no rashes or lesions, warm and dry Psych: appropria
--- NOTE | 2022-04-13 13:31 | PM.IMPN ---
Progress Note: A&P Assessment and Plan (1) Abdominal pain: Code(s): R10.9 - Unspecified abdominal pain Status: Acute Assessment and Plan: Presented with abdominal discomfort. CTA showed biliary ductal dilation and patient with elevated liver enzymes MRCP completed 04/10 revealed mild intrahepatic and extrahepatic biliary duct dilation status post cholecystectomy with no evidence of choledocholithiasis there is a 13 mm cystic lesion of the pancreas but this is not likely to be contributing to her symptoms. lipase very mildly elevated at 320 appreciate GI consultation Continue low fiber diet supportive care. Analgesics and antiemetics available as needed. pain improved (2) Transaminitis: Code(s): R74.01 - Elevation of levels of liver transaminase levels Status: Acute Assessment and Plan: Marked elevation, improving today total bilirubin down to 1.4 AST improved to 361 ALT improved to 845 no evidence of choledocholithiasis or cholangitis likely a passed stone hepatitis panel negative GREGORY and ceruloplasmin pending appreciate GI evaluation continue to trend LFTs (3) CLAUDIA (acute kidney injury): Code(s): N17.9 - Acute kidney failure, unspecified Status: Acute Assessment and Plan: resolved. 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 Continue aspirin, Brilinta, atorvastatin (5) Hypertension: Code(s): I10 - Essential (primary) hypertension Status: Acute Assessment and Plan: blood pressures are stable. Last BP 146/68 continue metoprolol and lisinopril Subjective Date/time seen: 04/13/22 13:31 Interval history: Date of service: 04/13/2022 Tiera Lobato is a 76-year-old female with a history of hypertension, hyperlipidemia, thoracic compression fracture who is seen in follow-up for abdominal pain and transaminitis. She felt poorly this morning. She had an acute flare of her chronic back and leg pain and was very uncomfortable. She also had nausea and dry heaves. This improved with Zofran but she reports feeling clammy after taking Zofran. She also had some lightheadedness that has resolved. She feels fatigued. She denies abdominal pain. No fevers or chills. Denies SOB. No urinary symptoms. Reports regular bowel movements and passing flatus. Review of Systems Review of Systems: All systems reviewed & are unremarkable except as noted in HPI and below Exam Narrative: General: well-nourished, well-appearing 76-year-old female, sitting up in bed, comfortable, NARD Neuro: awake, alert and oriented x4, speech clear, no focal neuro deficits noted HEENMT: normocephalic, atraumatic, EOMI, sclerae anicteric Respiratory: clear to auscultation bilaterally, nonlabored breathing Cardio: regular rate, regular rhythm with S1-S2 Abdomen: nondistended, normoactive bowel sounds, soft, nontender to palpation Extremities: no edema, erythema, or tenderness to palpation, DP pulses 2+ bilaterally Skin: no rashes or lesions, warm and dry Psych: appropriate mood and affect, judgment and insight intact Objective Data Vital Signs Vital Signs: Vital Signs - 24 hr 04/12/22 14:34 04/12/22 20:18 04/13/22 05:41 Temperature 97.7 F 97.8 F 97.9 F Pulse Rate 76 84 76 Respiratory Rate 14 14 14 Blood Pressure 127/58 L 145/76 H 135/70 Pulse Oximetry 98 98 98 Oxygen Delivery 04/13/22 07:41 04/13/22 07:45 04/13/22 08:14 Temperature 97.8 F Pulse Rate 72 72 Respiratory Rate 14 Blood Press
[2022-04-13 14:37] VITALS: BP 125/52; PULSE 61; RESP 16; TEMP 36.3; O2SAT 98
[2022-04-13 22:24] VITALS: BP 132/68; PULSE 72; RESP 18; TEMP 36.1; O2SAT 96
[2022-04-14 06:00] VITALS: BP 116/49; PULSE 66; RESP 18; TEMP 36.1; O2SAT 95
[2022-04-14 07:51] LABS: Hematocrit 33.6 % (37.0-47.0); Hemoglobin 10.9 g/dL (12.0-15.0); Mean Corpuscular HGB Conc 32.4 g/dl (32-36); Mean Corpuscular Hemoglobin 30.2 pg (26-34); Mean Corpuscular Volume 93.1 fl (80-100); Mean Platelet Volume 10.8 fl (7.4-10.4); Platelet Count Result 241 k/mm3 (150-375); Red Blood Count 3.61 M/mm3 (4.2-5.4); Red Cell Distribution Width 12.7 % (11.5-14.5); White Blood Count 5.1 K/mm3 (4.5-10.0)
[2022-04-14 08:03] LABS: Alanine Aminotransferase 577 U/L (6-35); Alkaline Phosphatase 480 U/L (38-126); Anion Gap 13 mmol/L (8-16); Aspartate Amino Transferase 211 U/L (14-36); Bilirubin,Total 1.1 mg/dL (0.2-1.3); Blood Urea Nitrogen 9 mg/dL (7-17); Carbon Dioxide 21 mmol/L (22-30); Chloride 103 mmol/L (98-107); Estimated CRCL calculation 48 ml/min; Estimated Glomerular Filt Rate > 60; Glucose 98 mg/dL (65-110); Sodium 137 mmol/L (137-145)
[2022-04-14 08:32] VITALS: PULSE 65
[2022-04-14] MEDS: ASPIRIN 81 MG CHEWABLE TABLET PO (08:32)
[2022-04-14] MEDS: METOPROLOL SUCCINATE EXT REL 12.5 MG TABCR PO (08:32)
[2022-04-14] MEDS: TICAGRELOR 90 MG TABLET PO (08:32)
[2022-04-14] MEDS: PANTOPRAZOLE 40 MG TABLET PO (08:33)
[2022-04-14] MEDS: GABAPENTIN 300 MG CAPSULE 600 MG PO ×2 (08:33→13:47)
[2022-04-14] MEDS: lisinopriL 5 MG TABLET PO (08:33)
[2022-04-14] MEDS: SERTRALINE HCL 50 MG TABLET PO (08:33)
[2022-04-14] MEDS: HEPARIN SODIUM 5,000 UNITS/ML VIAL 5000 UNITS SUB-Q (08:33)
--- NOTE | 2022-04-14 09:50 | WPDGIPROGNO ---
Progress Note: A&P Assessment and Plan (1) Upper abdominal pain: Code(s): R10.10 - Upper abdominal pain, unspecified Status: Acute Assessment and Plan: resolved, doing better and eating more (2) Elevated liver enzymes: Code(s): R74.8 - Abnormal levels of other serum enzymes Status: Acute Assessment and Plan: normalization of bili and transaminases coming down mrcp without choledocholithiasis and wonder if she passed stone on presentation but regardless she is doing ok pending hitesh, ama, etc she can go home and follow-up office with repeat liver enzymes (3) Dilated bile duct: Code(s): K83.8 - Other specified diseases of biliary tract Status: Acute Assessment and Plan: mildly dilated but no other findings, no stones. Wonder if she passed stone on presentation (4) Pancreatic cyst: Code(s): K86.2 - Cyst of pancreas Status: Acute Assessment and Plan: small size follow-up with imaging as outpatient (5) S/P cholecystectomy: Code(s): Z90.49 - Acquired absence of other specified parts of digestive tract Status: Acute Subjective Date/time seen: 04/14/22 09:50 Interval history: more appetite and pain almost gone Review of Systems Review of Systems: All systems reviewed & are unremarkable except as noted in HPI and below Exam Const: General: comfortable and no acute distress HENMT: Face/Nose/Sinus: Normal nares present Eyes: General: appearance normal, both eyes and all related structures Neck: Neck: no JVD Resp: Auscultation: clear to auscultation bilaterally Cardio: Rate: regular rate Rhythm: regular rhythm GI: Inspection: non-distended GI Palp: Yes Soft to palpation and No Tenderness to palpation present (GI) Skin: General skin exam: normal color Neuro: General: gait normal Speech: normal speech Extrem: General: normal to inspection Psych: Mental Status: mental status grossly normal Objective Data Vital Signs Vital Signs: Vital Signs - 24 hr 04/13/22 10:19 04/13/22 14:37 04/13/22 22:24 Temperature 97.3 F L 97.0 F L Pulse Rate 72 61 72 Respiratory Rate 16 18 Blood Pressure 125/52 L 132/68 Pulse Oximetry 98 96 04/14/22 06:00 04/14/22 08:32 Temperature 97.0 F L Pulse Rate 66 65 Respiratory Rate 18 Blood Pressure 116/49 L Pulse Oximetry 95 Intake/Output Intake/Output: Intake & Output 04/11/22 04/12/22 04/13/22 04/14/22 23:59 23:59 23:59 23:59 Intake Total 4344 1660 1108 200 Output Total 2300 550 900 600 Balance 2044 1110 208 -400 Meds/Results Medications: Active Medications Generic Name Dose Route Start Last Admin Trade Name Freq PRN Reason Stop Dose Admin Acetaminophen 650 mg 04/10/22 09:38 04/13/22 10:25 Acetaminophen 325 Mg Tablet PO 650 mg Q6H PRN Administration Pain (Scale Score 1-3) Hydrocodone Bitart/Acetaminophen 1 tab 04/10/22 09:38 04/10/22 20:39 Hydrocodone/Acetaminophen (*Crx) 5-325 Mg Tablet PO 1 tab Q6H PRN Administration Pain Rated 4-6 Aspirin 81 mg 04/10/22 09:00 04/14/22 08:32 Aspirin 81 Mg Chewable Tablet PO 81 mg DAILY AGUS Administration Diclofenac Sodium 75 mg 04/10/22 09:00 Diclofenac Sod 75 Mg Tablet.Ec PO BID AGUS Gabapentin 600 mg 04/10/22 09:00 04/14/22 08:33 Gabapentin 300 Mg Capsule PO 600 mg QID AGUS Administration Heparin Sodium (Porcine) 5,000 units 04/10/22 09:00 04/14/22 08:33 Heparin Sodium 5,000 Units/Ml Vial SUB-Q 5,000 units Q12HR AGUS Administration Lisinopril 5 mg 04/12/22 09:00 04/14/22 08:33 Lisinopril 5 Mg Tablet PO 5 mg QAM AGUS Administration Metoprolol Succinate 12.5 mg 04/10/22 09:00 04/14/22 08:32 Metoprolol Succinate Ext Rel 12.5 Mg Tabcr PO 12.5 mg DAILY AGUS Administration Ondansetron HCl 4 mg 04/13/22 08:14 04/13/22 08:37 Ondansetron Inj 4 Mg/2 Ml Vial IV PUSH 4 mg Q6H PRN Administration Nausea And Vom
[2022-04-14] MEDS: ACETAMINOPHEN 325 MG TABLET 650 MG PO (11:16)
--- NOTE | 2022-04-14 14:54 | PM.DS ---
DS: Admitting Diagnosis Discharge Date 04/14/2022 Admitting Diagnosis Abdominal pain DS: Discharge Diagnosis Discharge Diagnosis (1) Dilated bile duct: Code(s): K83.8 - Other specified diseases of biliary tract Status: Acute Assessment and Plan: Presented with abdominal discomfort. CTA showed biliary ductal dilation and patient with elevated liver enzymes. MRCP completed 04/10 revealed mild intrahepatic and extrahepatic biliary duct dilation status post cholecystectomy with no evidence of choledocholithiasis. She was seen in consultation by Gastroenterology. Believe that the patient passed a stone in which was be etiology of her symptoms and explains slow resolution of transaminitis. Patient had symptomatic improvement and was able to tolerate a low-fiber diet. Supportive care was provided. Outpatient GI follow-up (2) Transaminitis: Code(s): R74.01 - Elevation of levels of liver transaminase levels Status: Acute Assessment and Plan: Marked elevation with AST peak at 4700 and ALT peak at 2700, total bilirubin peak at 2.9. No evidence of choledocholithiasis or cholangitis, likely due to a passed stone. Hepatitis panel was negative. LFTs with slow resolution. Bilirubin within normal limits at time of discharge. AST down to 200 and ALT down to 500. Alk phos persistently elevated 300-400. Repeat LFTs in 1 week with outpatient GI follow-up. GREGORY and ceruloplasmin pending at time of discharge, will follow up with GI to review results (3) Pancreatic cyst: Code(s): K86.2 - Cyst of pancreas Status: Acute Assessment and Plan: 13 mm cystic lesion of the pancreas incidentally noted on MRCP. Not felt to be contributing to her symptoms. Continue outpatient follow-up for repeat imaging in 2 years recommended (4) CLAUDIA (acute kidney injury): Code(s): N17.9 - Acute kidney failure, unspecified Status: Resolved Assessment and Plan: Resolved. Creatinine elevated up to 1.5, improved back to baseline following IV fluid rehydration. (5) CAD (coronary artery disease): Code(s): I25.10 - Atherosclerotic heart disease of [place] coronary artery without angina pectoris Status: Chronic Assessment and Plan: Patient with recent admission for chest pain consistent with NSTEMI, completed extensive workup and cardiology evaluation. No acute issues during this admission. 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 Continue aspirin, Brilinta, atorvastatin (6) Hypertension: Code(s): I10 - Essential (primary) hypertension Status: Acute Assessment and Plan: blood pressures remained stable. ontinue metoprolol and lisinopril DS: Summary Hospital Course Hospital Course: Date of admission: 04/09/2022 Date of discharge: 04/14/2022 Tiera Lobato is a 76-year-old female with a history of hypertension, hyperlipidemia, thoracic compression fracture, cholecystectomy, and recent hospital admission 04/02-04/05 for NSTEMI who presented to the emergency department on 04/09/2022 with complaints of ?chest pain? in her epigastric region associated with nausea. On presentation to the ED, her vital signs were stable, creatinine slightly elevated at 1.5, troponin negative, lipase 390, and CTA of the abdomen/pelvis showed interval intrahepatic and extrahepatic bile duct dilation. She was admitted to the hospitalist service for further evaluation and management and was seen in consultation by Gastroenterology. Please see above for further details. Patient had overall symptomatic improvement with downward trend of LFTs. She will follow-up with GI as an outpatient. Patient felt comfortable with plans to return home to her assisted living facility. On discussed worrisome signs and symptoms for which to return. She was discharged in hemodynamically stable condition on 04/14/2022 Status at Discharge Functional status at discharge
[2022-04-17 20:11] LABS: Ceruloplasmin 36 mg/dL (18-53)
[2022-04-18 23:05] LABS: Mitochondrial (M2) Ab (IgG) <=20.0 U (<=20.0)
== END 2022-04-14 15:40 | DRG 444 ==
LOC: ANHED 22:16 → ANH2MED 23:21
PROVIDERS: Internal Medicine Gastroenterology; Physician Assistant; Admitting Provider Internal Medicine; Emergency Provider Emergency Medicine; PCP Family Medicine Adolescent Medicine; Visit Provider Family Medicine
DX: K83.8 Other specified diseases of biliary tract (principal); I21.4 Non-ST elevation (NSTEMI) myocardial infarction; K86.2 Cyst of pancreas; N17.9 Acute kidney failure, unspecified; R74.01 Elevation of levels of liver transaminase levels; E78.5 Hyperlipidemia, unspecified; Z90.49 Acquired absence of other specified parts of digestive tract; G89.29 Other chronic pain; I25.10 Atherosclerotic heart disease of native coronary artery without angina pectoris; I12.9 Hypertensive chronic kidney disease with stage 1 through stage 4 chronic kidney disease, or unspecified chronic kidney disease; K21.9 Gastro-esophageal reflux disease without esophagitis; M81.0 Age-related osteoporosis without current pathological fracture; M54.9 Dorsalgia, unspecified; M19.90 Unspecified osteoarthritis, unspecified site; N18.31 Chronic kidney disease, stage 3a; R74.8 Abnormal levels of other serum enzymes; Z96.651 Presence of right artificial knee joint; Z95.1 Presence of aortocoronary bypass graft; Z79.82 Long term (current) use of aspirin
CPT/HCPCS: 36415; 71046; 71275; 74174; 74183; 76376; 80048; 80053; 80076; 82390; 83520; 83690; 84484; 85025; 85027; 85610; 85730; 86038; 93005; 96374; 99285; A9270; A9577; J0131; J1644; J2405; J7030; Q9967

== ENCOUNTER 2022-05-15 10:48 | Outpatient (CLI) | payer OTHER, MEDICAID, SELFPAY ==
--- NOTE | ~2022-05-15 | DEXA_ITS ---
Bone Density Report Name: JAMES CUEVA Age: 77 Sex: Female Ethnicity: White Date of : 1945 Indication: postmenopausal osteoporosis; monitoring treatment; height loss; Referring Provider: UNKNOWN, UNKNOWN Study: Bone densitometry was performed. Exam Date: May 15, 2022 Accession number: [id number] Bone Density: Region BMD T-score Z-score Classification AP Spine(L1-L4) 1.000 -0.4 2.0 Normal Femoral Neck (Left) 0.566 -2.5 -0.4 Osteoporosis Total Hip (Left) 0.625 -2.6 -0.8 Osteoporosis Femoral Neck (Right) 0.656 -1.7 0.4 Osteopenia Total Hip (Right) 0.701 -2.0 -0.1 Osteopenia Total Hip Mean 0.663 -2.3 -0.5 Osteopenia World Health Organization criteria for BMD impression classify patients as: Normal (T-score at or above -1.0), Osteopenia (T-score between -1.0 and -2.5), or Osteoporosis (T-score at or below -2.5). 10-year Fracture Risk: FRAX not reported because: Some T-score for Spine Total or Hip Total or Femoral Neck at or below -2.5 Treated for osteoporosis Previous Exams: Region Exam Age BMD T-score BMD Change BMD Change Date g/cm2 vs Baseline vs Previous Total Hip(Left) 05/15/2022 77 0.625 -2.6 -0.015 (-2.3%) -0.015 (-2.3%) 02/07/2021 75 0.639 -2.5 Total Hip(Right) 05/15/2022 77 0.701 -2.0 0.063 (9.8%)* 0.063 (9.8%)* 02/07/2021 75 0.638 -2.5 *Denotes significance at 95% confidence level, LSC for Total Hip = 0.027 g/cm2 Clinical Information Provided by Patient: Is being treated for osteoporosis Has used the following medications: Fosamax (i.e. alendronate), Vitamin D, Calcium Patient maximum height was 65 Menopause Age: 53 Does not regularly consume dairy products Onset of menses at age 11 Number of children 3 Impression: The patient has osteoporosis, based on the Left Total Hip T-score. No significant bone loss was observed. Discussion: PATIENT UNDER TREATMENT WITH NO SIGNIFICANT BMD LOSS SINCE LAST EXAM. In an untreated patient, BMD typically declines with age. A lack of decline or gain is usually a sign that treatment is efficacious and fracture risk is reduced. It is important to ask patients whether they are taking their medications and to encourage continued and appropriate compliance with their osteoporosis therapies to reduce fracture risk. It is also important to review their risk factors and encourage appropriate calcium and vitamin D intakes, exercise, fall prevention and other lifestyle measures. Follow-Up: Consider a kyle
== END 2022-05-15 10:49 | disposition home or self-care (01) ==
PROVIDERS: PCP Family Medicine Adolescent Medicine
DX: M25.551 Pain in right hip (principal); M16.11 Unilateral primary osteoarthritis, right hip; M85.89 Other specified disorders of bone density and structure, multiple sites; M81.0 Age-related osteoporosis without current pathological fracture
CPT/HCPCS: 77080

== ENCOUNTER 2022-05-27 15:15 | Outpatient (CLI) | payer OTHER, MEDICAID, SELFPAY ==
[2022-05-27 16:02] LABS: Alanine Aminotransferase 18 U/L (6-35); Alkaline Phosphatase 86 U/L (38-126); Aspartate Amino Transferase 23 U/L (14-36); Bilirubin,Total 0.5 mg/dL (0.2-1.3)
== END 2022-05-27 15:16 | disposition home or self-care (01) ==
PROVIDERS: PCP Family Medicine Adolescent Medicine; Visit Provider Physician Assistant
DX: R74.01 Elevation of levels of liver transaminase levels (principal)
CPT/HCPCS: 36415; 80076

== ENCOUNTER 2022-06-05 12:46 | Outpatient (CLI) | payer OTHER, MEDICAID, SELFPAY ==
[2022-06-05 13:09] LABS: Basophils Percent Auto 0.8 % (0.2-1.2); Eosinophils Absolute Auto 0.2 K/mm3 (0-0.3); Eosinophils Percent Auto 4.6 % (0-4.4); Hematocrit 32.5 % (37.0-47.0); Hemoglobin 10.3 g/dL (12.0-15.0); Immature Granulocyte Absolute 0.01 K/mm3 (0.00-0.031); Immature Granulocyte Percent A 0.2 % (0-0.5); Lymphocytes Absolute Auto 1.26 K/mm3 (0.9-3.2); Lymphocytes Percent Auto 25.3 % (18.3-44.2); Mean Corpuscular HGB Conc 31.7 g/dl (32-36); Mean Corpuscular Volume 97.9 fl (80-100); Monocytes Absolute Auto 0.3 K/mm3 (0.1-0.6); Monocytes Percent Auto 6.8 % (2.6-8.5); Neutrophils Absolute Auto 3.1 K/mm3 (1.3-6.7); Neutrophils Percent Auto 62.3 % (45.5-73.1); Platelet Count Result 189 k/mm3 (150-375); Red Blood Count 3.32 M/mm3 (4.2-5.4); Red Cell Distribution Width 13.4 % (11.5-14.5)
[2022-06-05 13:21] LABS: Alanine Aminotransferase 18 U/L (6-35); Albumin Level 4.4 g/dL (3.5-5.1); Alkaline Phosphatase 86 U/L (38-126); Anion Gap 6 mmol/L (8-16); Aspartate Amino Transferase 24 U/L (14-36); Blood Urea Nitrogen 25 mg/dL (7-17); Calcium 9.5 mg/dL (8.4-10.2); Carbon Dioxide 28 mmol/L (22-30); Chloride 106 mmol/L (98-107); Estimated Glomerular Filt Rate 48; Glucose 94 mg/dL (65-110); Potassium 3.9 mmol/L (3.4-5.0); Sodium 140 mmol/L (137-145)
[2022-06-05 13:30] LABS: Prothrombin Time 13.1 Seconds (11.1-14.7)
== END 2022-06-05 12:47 | disposition home or self-care (01) ==
PROVIDERS: PCP Family Medicine Adolescent Medicine; Visit Provider Internal Medicine Cardiovascular Disease
DX: R00.2 Palpitations (principal); I48.91 Unspecified atrial fibrillation
CPT/HCPCS: 36415; 80053; 85025; 85610

== ENCOUNTER 2022-07-19 10:32 | Outpatient (CLI) | payer OTHER, SELFPAY ==
[2022-07-19 11:18] LABS: Immature Reticulocyte Fraction 17.2 % (3.0-15.9); Reticulocyte Hemoglobin Conten 31.7 pg (28.2-35.7); Reticulocyte Percent 2.28 % (0.7-4.3); Reticulocytes Absolute 0.07 B/L (32.2-175.7)
== END 2022-07-19 10:33 | disposition home or self-care (01) ==
PROVIDERS: PCP Family Medicine Adolescent Medicine; Visit Provider Internal Medicine Cardiovascular Disease
DX: R00.2 Palpitations (principal); I48.91 Unspecified atrial fibrillation; D64.9 Anemia, unspecified
CPT/HCPCS: 36415; 84443; 85046

== ENCOUNTER 2022-09-30 14:15 | Emergency (ER) | payer OTHER, SELFPAY ==
--- NOTE | ~2022-09-30 | CT_ITS ---
EXAMINATION: CT abdomen pelvis w con DATE: 09/30/2022 17:15 INDICATION: Nausea with dry heaves TECHNIQUE: Computed tomography (CT) of the abdomen and pelvis was performed with 100 cc Omnipaque 350 intravenous contrast. The dose-length product was 780.85 mGy-cm. Automated exposure control and iterative reconstruction technique were employed. COMPARISON: CT dated 04/09/2022 FINDINGS: There is dependent atelectasis. Heart size normal. No significant pleural or pericardial ef fusion. There is a 3.6 cm left adrenal myelolipoma. There are left renal cysts. Status post cholecyst ectomy with expected prominence of the bile ducts. The spleen, pancreas, right adrenal gland and righ t kidney are unremarkable. Nonobstructive bowel gas pattern. Small fat-containing ventral abdominal w all hernia slightly lateral to the right. Nonobstructive bowel gas pattern. Colonic diverticulosis wi thout evidence for diverticulitis. There are surgical clips in the left abdomen. 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 There is a chronic T11 burst fracture, unchanged. Severe solomon mbar spondylosis. IMPRESSION: 1. No acute abdominal abnormality. Reviewed, dictated and finalized at location A.
[2022-09-30 14:20] VITALS: BP 143/58; PULSE 60; RESP 14; TEMP 36.8; O2SAT 98
--- NOTE | 2022-09-30 14:25 | ECG_ITS ---
Measurements Intervals [place] Rate: 63 P: -74 MO: 147 QRS: -17 QRSD: 100 T: 150 QT: 417 QTc: 429 Interpretive Statements SINUS RHYTHM ST DEVIATION AND MODERATE T-WAVE ABNORMALITY, CONSIDER ANTEROLATERAL ISCHEMIA [-0.1+ mV T WAVE IN V3-V6] ABNORMAL ECG COMPARED TO ECG 04/09/2022 17:59:29 NO CHANGE Electronically Signed On 10-01-2022 6:59:15 CDT by Reddy Monahan M.D.
[2022-09-30 14:40] LABS: Basophils Percent Auto 0.7 % (0.2-1.2); Eosinophils Absolute Auto 0.1 K/mm3 (0-0.3); Eosinophils Percent Auto 1.1 % (0-4.4); Hematocrit 37.4 % (37.0-47.0); Hemoglobin 11.9 g/dL (12.0-15.0); Mean Corpuscular HGB Conc 31.8 g/dl (32-36); Mean Corpuscular Hemoglobin 30.5 pg (26-34); Mean Corpuscular Volume 95.9 fl (80-100); Mean Platelet Volume 10.8 fl (7.4-10.4); Monocytes Absolute Auto 0.6 K/mm3 (0.1-0.6); Monocytes Percent Auto 12.4 % (2.6-8.5); Neutrophils Absolute Auto 2.8 K/mm3 (1.3-6.7); Neutrophils Percent Auto 59.8 % (45.5-73.1); Platelet Count Result 186 k/mm3 (150-375); Red Cell Distribution Width 13.1 % (11.5-14.5); White Blood Count 4.6 K/mm3 (4.5-10.0)
[2022-09-30 14:51] LABS: Alanine Aminotransferase 25 U/L (6-35); Albumin Level 4.5 g/dL (3.5-5.1); Alkaline Phosphatase 96 U/L (38-126); Anion Gap 10 mmol/L (8-16); Aspartate Amino Transferase 30 U/L (14-36); Bilirubin,Total 0.9 mg/dL (0.2-1.3); Blood Urea Nitrogen 20 mg/dL (7-17); Calcium 9.5 mg/dL (8.4-10.2); Carbon Dioxide 24 mmol/L (22-30); Chloride 104 mmol/L (98-107); Estimated CRCL calculation 48 ml/min; Estimated Glomerular Filt Rate > 60; Glucose 96 mg/dL (65-110); Lipase 129 U/L (23-300); Potassium 3.8 mmol/L (3.4-5.0); Sodium 138 mmol/L (137-145)
--- NOTE | 2022-09-30 15:32 | ED.NAVMDI ---
HPI - Nausea/Vomiting/Diarrhea General Chief complaint: Nausea/Vomiting/Diarrhea Stated complaint: n/v/d Time Seen by Provider: 09/30/22 15:28 Source: patient and family History of Present Illness HPI Narrative: Patient is 77 years old white female presents with nausea and dry heaves over the last 3 days with poor p.o. intake. She denies any fever, chills, vomiting, diarrhea, constipation, abdominal pain. Patient reports some diarrhea up to 5 times daily. Patient had similar symptoms March 2022 and was hospitalized for 1 week with a diagnosis of biliary ductal dilatation and a possible passing the biliary ductal stone. Related Data Home Medications Medication Instructions Recorded Confirmed atorvastatin 80 mg tablet 80 mg PO DAILY 10/19/21 04/10/22 sertraline 100 mg tablet 50 mg PO DAILY 10/19/21 04/10/22 acetaminophen 500 mg tablet 1,000 mg PO Q6H PRN Pain (Scale 04/02/22 04/10/22 (Tylenol Extra Strength) Score 1-3) aspirin 81 mg chewable tablet 81 mg PO DAILY 04/02/22 04/10/22 ezetimibe 10 mg tablet 10 mg PO DAILY 04/02/22 04/10/22 linaclotide 145 mcg capsule 145 mcg PO DAILY PRN Constipation 04/02/22 04/10/22 (Linzess) omeprazole 20 mg capsule,delayed 20 mg PO DAILY 04/10/22 04/10/22 release Allergies Allergy/AdvReac Type Severity Reaction Status Date / Time codeine Allergy Unknown shortness Verified 04/12/22 07:55 of breath Latex, Natural Rubber Allergy Unknown SKIN Verified 04/12/22 07:55 IRRITATION nitroglycerin AdvReac Severe Hypotension Verified 04/12/22 07:55 tramadol AdvReac Mild Nausea and Verified 04/12/22 07:55 Vomiting, HEADACHE, DIZZINESS Review of Systems Review of Systems: All systems reviewed & are unremarkable except as noted in HPI and below PMFSH Past Medical History Medical History (Updated 09/30/22 @ 20:04 by Sunitha Funez MD) Acute renal failure Bowel perforation Compression fracture of thoracic spine, non-traumatic T11 2018 Dilated bile duct Hyperlipidemia Hypertension Pancreatic cyst Upper abdominal pain Surgical History Surgical History (Updated 04/11/22 @ 13:34 by Tre Weinberg MD) History of lumbar surgery 1999 History of total right knee replacement 2018 S/P CABG x 2 S/P cholecystectomy Family History Family History Father Malignant neoplasm of prostate Mother Alzheimer's dementia Sibling Alzheimer's dementia Social History Social History Social History: Patient lives in the assisted living. Her son Storm is her surrogate. She has three kids, and 4 grandkids. She denies having a pet. She was and her last Jul from recurrent polio infection and acute brain bleed. 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
[2022-09-30] MEDS: ONDANSETRON INJ 4 MG/2 ML VIAL 8 MG IV PUSH (15:55)
[2022-09-30] MEDS: SODIUM CHLORIDE 0.9% IV 1,000 ML 999 ML IV CONT (15:55)
[2022-09-30 16:22] VITALS: BP 143/75; PULSE 65; RESP 16; O2SAT 99
[2022-09-30 17:51] LABS: Appearance Urine Clear (Clear); Bacteria Urine None Seen /hpf; Bilirubin Urine Negative (Negative); Blood Urine Negative (Negative); Color Urine Yellow (Yellow); Glucose Urine UA Negative (Negative); Ketones Urine 1+ mg/dL (Negative); Leukocyte Esterase Ur Trace LEU/UL (Negative); Nitrate Urine Negative (Negative); Non Pathogenic Casts 0-2; Protein Urine Negative (Negative); RBC Urine 0-2 /hpf (0-2); Squamous Epithelial Cell Urine None seen /hpf (Few); WBC Urine 0-5 /hpf; pH Urine 5.5 (5.0-9.0)
[2022-09-30 18:05] LABS: Add Urine Microscopic? YES; Specific Grav Ur 1.041 (1.001-1.035)
== END 2022-09-30 20:24 ==
PROVIDERS: Emergency Provider Emergency Medicine; PCP Family Medicine Adolescent Medicine
DX: R11.0 Nausea (principal); F12.99 Cannabis use, unspecified with unspecified cannabis-induced disorder; E78.5 Hyperlipidemia, unspecified; I10 Essential (primary) hypertension; Z96.651 Presence of right artificial knee joint; Z95.1 Presence of aortocoronary bypass graft; Z90.49 Acquired absence of other specified parts of digestive tract; Z79.82 Long term (current) use of aspirin; R94.31 Abnormal electrocardiogram [ECG] [EKG]
CPT/HCPCS: 36415; 74177; 80053; 81001; 83690; 85025; 93005; 96361; 96374; 99284; J2405; J7030; Q9967

== ENCOUNTER 2023-02-01 15:41 | Inpatient (IN) | payer OTHER, MEDICAID, SELFPAY ==
[2023-02-01] VITALS (66 sets, daily range): BP systolic 84–146; BP diastolic 56–118; PULSE 77–137; RESP 11–26; TEMP 36.7–36.9; O2SAT 86–100; BMI 31.8
--- NOTE | ~2023-02-01 | CT_ITS ---
EXAMINATION:CT diagnostic chest wo con DATE: 02/02/2023 08:00 INDICATION: Right rib pain. Fall. TECHNIQUE: Computed tomography (CT) of the chest was performed without intravenous contrast. Automate d exposure control and iterative reconstruction technique were employed. The dose-length product (DLP ) was 414.15 mGy-cm. COMPARISON: Chest CT 04/09/2022 FINDINGS: The lungs demonstrate mild atelectasis. There is a trace right pleural effusion. Cardiomega ly is noted. There are changes of coronary artery bypass grafting. There are coronary artery calcific ations. No pericardial effusion. There are changes of cholecystectomy. There are cysts in left kidney measuring up to 4.3 cm. There are old healed fractures of right fifth and eighth ribs. There is mild thoracic spondylosis. There is a chronic burst fracture of T11. IMPRESSION: 1. No acute rib fracture. 2. Trace right pleural effusion. Reviewed, dictated and finalized at location A.
--- NOTE | ~2023-02-01 | US_ITS ---
US renal BI 02/03/2023 14:21 Procedure: Realtime transabdominal ultrasound of the kidneys and bladder. Indication: Acute renal insufficiency Comparison: No prior studies for comparison. Findings: Renal echotexture is normal bilaterally without hydronephrosis, contour deforming mass or r enal calculus. There is a left renal cyst measuring 4.6 cm. The right kidney measures 9.9 cm and left kidney measures 9.7 cm. Mild bladder wall thickening measuring 5 mm. Impression: 1: Left renal cyst measuring 4.6 cm. 2: Mild bladder wall thickening measuring 5 mm. Consider cystitis in the appropriate clinical settin g. Reviewed, dictated and finalized at location B. Impression: 1: Left renal cyst measuring 4.6 cm. 2: Mild bladder wall thickening measuring 5 mm. Consider cystitis in the appro priate clinical setting.
--- NOTE | ~2023-02-01 | CT_ITS ---
EXAMINATION: CT cervical spine wo con DATE: 02/01/2023 16:36 INDICATION: Head injury TECHNIQUE: Computed tomography (CT) of the cervical spine was performed without intravenous contrast. The dose-length product (DLP) was 268.87 mGy-cm. Automated exposure control and iterative reconstruc tion technique were employed. COMPARISON: None FINDINGS: Bone alignment is normal. There is no fracture. There is mild loss of intervertebral disc s pace height at C5-C6 and C6-7. The odontoid process is intact. There is multilevel mild facet and unc overtebral joint osteoarthritis. The prevertebral soft tissues are normal. IMPRESSION: 1. Mild cervical spondylosis without acute findings. Reviewed, dictated and finalized at location F.
--- NOTE | ~2023-02-01 | XR_ITS ---
EXAMINATION: XR forearm RT 2V INDICATION: Right forearm pain, initial encounter TECHNIQUE: Two views of the right forearm are obtained. COMPARISON: None available FINDINGS: There is a comminuted intra-articular fracture of the distal radius. No additional fracture is identified. Soft tissue swelling surrounds the wrist fracture there is approximately 3 cm oval carrasco bcutaneous mass of the far medial to the proximal ulna. IMPRESSION: 1. Comminuted intra-articular fracture of the distal radius. Reviewed, dictated and finalized at location F.
--- NOTE | ~2023-02-01 | XR_ITS ---
EXAMINATION: XR chest 1V INDICATION: Fall, near syncope TECHNIQUE: AP view of the chest is obtained. COMPARISON: 04/09/2022 FINDINGS: Cardiomegaly is noted. The lungs are free of acute opacities. No pleural effusion or pneumo thorax. Median sternotomy wires and mediastinal surgical clips are seen, likely from prior coronary a rtery bypass grafting. Surgical clips are noted in the upper quadrants of the abdomen. Surgical clips are also noted near the expected location of the right thyroid. IMPRESSION: 1. Cardiomegaly. Reviewed, dictated and finalized at location F. IMPRESSION: 1. Cardiomegaly.
--- NOTE | ~2023-02-01 | CT_ITS ---
EXAMINATION: CT brain wo con INDICATION: Head injury COMPARISON: 06/09/2011 TECHNIQUE: Standard unenhanced head CT. The dose-length product (DLP) was 529.67 mGy-cm. The mA was a djusted according to patient size. Iterative reconstruction technique was employed. FINDINGS: There is no acute intraparenchymal hemorrhage. No evidence of mass lesion. No evidence of a cute infarction. There are old infarcts the right basal ganglia. There is mild periventricular and carrasco bcortical hypodensity probably related to small vessel ischemic disease. There is mild prominence of the sulci and ventricles related to cerebral atrophy. Intracranial calcified cerebral atherosclerosis is noted. There are no extra-axial collections. There is no mass effect or midline shift. The orbits and soft tissues are unremarkable. The visualized sinuses and mastoid air cells are well aerated. IMPRESSION: 1. No acute intracranial abnormality. 2. Age related findings. Reviewed, dictated and finalized at location F.
--- NOTE | ~2023-02-01 | XR_ITS ---
EXAMINATION: XR wrist RT 2V INDICATION: Right wrist fracture post reduction TECHNIQUE: Two views of the right wrist are obtained. COMPARISON: 1642 hours FINDINGS: Again seen is a comminuted intra-articular fracture at the distal radius. Alignment of the fracture fragments is essentially anatomic. A splint has been applied. No additional fracture is iden tified. IMPRESSION: 1. Splinted comminuted intra-articular fracture of the distal radius in essentially anatomic alignmen t. Reviewed, dictated and finalized at location F. IMPRESSION: 1. Splinted comminuted intra-articular fracture of the distal radius in essenti ally anatomic alignment.
--- NOTE | ~2023-02-01 | XR_ITS ---
EXAMINATION: XR knee RT 3V DATE: 02/01/2023 16:47 INDICATION: Right knee pain TECHNIQUE: Three views of the right knee were obtained. COMPARISON: 10/01/2017 FINDINGS: There are changes of knee arthroplasty. No fracture is identified. Calcified atherosclerosi s is noted. No joint effusion/synovitis. There is mild soft tissue swelling of the knee. IMPRESSION: 1. No acute osseous abnormality. Reviewed, dictated and finalized at location F.
--- NOTE | 2023-02-01 16:02 | ECG_ITS ---
Measurements Intervals [place] Rate: 123 P: MO: 0 QRS: 21 QRSD: 101 T: 155 QT: 324 QTc: 464 Interpretive Statements ATRIAL FIBRILLATION WITH RAPID VENTRICULAR RESPONSE NONSPECIFIC ST AND T-WAVE ABNORMALITY ABNORMAL ECG COMPARED TO ECG 09/30/2022 14:44:30 ATRIAL FIBRILLATION REPLACES SINUS RHYTHM AND ANTERIOR ISCHEMIA IS IMPROVED Electronically Signed On 02-02-2023 7:13:01 CDT by Reddy Monahan M.D.
--- NOTE | 2023-02-01 16:16 | ED.GENADULT ---
HPI - General Adult General Chief complaint: Fall <Bolivar Carrero PA-C - Last Filed: 02/01/23 20:10> Stated complaint: GLF, wrist and knee pain <Bolivar Carrero PA-C - Last Filed: 02/01/23 20:10> Time Seen by Provider: 02/01/23 15:51 <Bolivar Carrero PA-C - Last Filed: 02/01/23 20:10> Source: patient <JOHN Grace Last Filed: 02/01/23 20:10> Mode of arrival: ambulatory <Bolivar Carrero PA-C - Last Filed: 02/01/23 20:10> Limitations: no limitations <Bolivar Carrero PA-C - Last Filed: 02/01/23 20:10> History of Present Illness HPI narrative: This is a 77-year-old female with PMH of [place] s/p CABG, A-fib, HTN who presents to the ED via EMS with chief complaint of a fall occurring this afternoon just prior to arrival. She states she has been feeling fine previously but today she was getting very hot while sitting outside in her chair. She states she got up from the chair and began to walk and felt very shaky and a little lightheaded. She states that she then had a controlled fall to the ground and is able to recall the entirety of those events. Denies syncope. Patient states that she now has some pain in her right knee and right wrist as this is what she landed on. Denies diaphoresis, preceding chest pain or shortness of breath. Denies abdominal pain, vomiting, urinary symptoms, fevers, chills. Patient states that she is on Eliquis for recently diagnosed A-fib. She states that she was shocked 2 weeks ago at [facility] for A-fib and lower blood pressures. <Bolivar Carrero PA-C - Last Filed: 02/01/23 20:10> Related Data Home medications: Home Medications Medication Instructions Recorded Confirmed acetaminophen 500 mg tablet 1,000 mg PO Q6H PRN Pain (Scale 04/02/22 04/10/22 (Tylenol Extra Strength) Score 1-3) aspirin 81 mg chewable tablet 81 mg PO DAILY 04/02/22 04/10/22 omeprazole 20 mg capsule,delayed 20 mg PO DAILY 04/10/22 04/10/22 release apixaban 5 mg tablet 5 mg PO BID 01/14/23 furosemide 40 mg tablet 40 mg PO BID 01/14/23 metoprolol succinate 50 mg 50 mg PO DAILY 01/14/23 tablet,extended release 24 hr <Bolivar Carrero PA-C - Last Filed: 02/01/23 20:10> Allergies/adverse reactions: Allergies Allergy/AdvReac Type Severity Reaction Status Date / Time codeine Allergy Unknown shortness Verified 02/01/23 15:53 of breath Latex, Natural Rubber Allergy Unknown SKIN Verified 02/01/23 15:53 IRRITATION nitroglycerin AdvReac Severe Hypotension Verified 02/01/23 15:53 tramadol AdvReac Mild Nausea and Verified 02/01/23 15:53 Vomiting, HEADACHE, DIZZINESS <Bolivar Carrero PA-C - Last Filed: 02/01/23 20:10> Review of Systems Review of Systems: All systems as dictated in HPI <Bolivar Carrero PA-C - Last Filed: 02/01/23 20:10> [facility] Past Medical History Medical History: Medical History (Updated 02/01/23 @ 20:10 by Bolivar Carrero PA-C) Acute renal failure Bowel perforation Compression fracture of thoracic spine, non-traumatic T11 2018 Dilated bile duct Elevated liver enzymes Pancreatic cyst Upper abdominal pain <Bolivar Carrero PA-C - Last Filed: 02/01/23 20:10> Surgical History Surgical History: Surgical History (Updated 10/16/22 @ 07:05 by Cristian Ling MD) History of cholecystectomy History of lumbar surgery 1998 History of total right knee replacement 2018 S/P CABG x 2 <Bolivar Carrero PA-C - Last Filed: 02/01/23 20:10> Family History Family History: Family History Father Malignant neoplasm of prostate Mother Alzheimer's dementia Sibling Alzheimer's dementia <Bolivar Carrero PA-C - Last Filed: 02/01/23 20:10> Social History Social History: Social History Social History: Patient lives in the assisted living. Her son Storm is her surrogate. She has three kids, and 4 gra
[2023-02-01] MEDS: SODIUM CHLORIDE 0.9% IV 1,000 ML 999 ML IV CONT ×2 (16:50→18:20)
[2023-02-01 17:41] LABS: Basophils Percent Auto 0.6 % (0.2-1.2); Eosinophils Absolute Auto 0.2 K/mm3 (0-0.3); Eosinophils Percent Auto 3.2 % (0-4.4); Hematocrit 32.7 % (37.0-47.0); Hemoglobin 10.5 g/dL (12.0-15.0); Immature Granulocyte Absolute 0.05 K/mm3 (0.00-0.031); Immature Granulocyte Percent A 0.7 % (0-0.5); Lymphocytes Percent Auto 18.6 % (18.3-44.2); Mean Corpuscular HGB Conc 32.1 g/dl (32-36); Mean Corpuscular Hemoglobin 30.7 pg (26-34); Mean Corpuscular Volume 95.6 fl (80-100); Mean Platelet Volume 12.4 fl (7.4-10.4); Monocytes Absolute Auto 0.6 K/mm3 (0.1-0.6); Neutrophils Absolute Auto 4.8 K/mm3 (1.3-6.7); Neutrophils Percent Auto 68.9 % (45.5-73.1); Platelet Count Result 145 k/mm3 (150-375); Red Blood Count 3.42 M/mm3 (4.2-5.4); Red Cell Distribution Width 13.2 % (11.5-14.5)
[2023-02-01] MEDS: METOPROLOL TARTRATE INJ 5 MG/5 ML VIAL IV PUSH ×2 (17:45→19:26)
[2023-02-01 17:52] LABS: Alanine Aminotransferase 24 U/L (6-35); Albumin Level 4.5 g/dL (3.5-5.1); Alkaline Phosphatase 82 U/L (38-126); Anion Gap 11 mmol/L (8-16); Aspartate Amino Transferase 31 U/L (14-36); Bilirubin,Total 0.7 mg/dL (0.2-1.3); Blood Urea Nitrogen 75 mg/dL (7-17); Calcium 9.3 mg/dL (8.4-10.2); Carbon Dioxide 23 mmol/L (22-30); Chloride 104 mmol/L (98-107); Estimated CRCL calculation 20 ml/min; Estimated Glomerular Filt Rate 21; Glucose 104 mg/dL (65-110); Potassium 4.5 mmol/L (3.4-5.0); Sodium 138 mmol/L (137-145)
[2023-02-01 17:54] LABS: Appearance Urine Clear (Clear); Bacteria Urine None Seen /hpf; Bilirubin Urine Negative (Negative); Blood Urine Negative (Negative); Color Urine Yellow (Yellow); Glucose Urine UA Negative (Negative); Ketones Urine Negative (Negative); Leukocyte Esterase Ur 1+ LEU/UL (Negative); Nitrate Urine Negative (Negative); Protein Urine Negative (Negative); RBC Urine 0-2 /hpf (0-2); Specific Grav Ur 1.008 (1.001-1.035); Squamous Epithelial Cell Urine None seen /hpf (Few); Urobilinogen Urine 0.2 mg/dL (<2.0); pH Urine 5.5 (5.0-9.0)
[2023-02-01 17:58] LABS: Add Urine Microscopic? YES
[2023-02-01 18:01] LABS: NT Pro B Type Natriuretic Pept 4740 pg/mL (19.9-100)
--- NOTE | 2023-02-01 19:20 | PC.NURSE ---
This RN assumed care of patient. This RN took patient report from PHILIP Skinner.
[2023-02-01] MEDS: dilTIAZem HCl INJ 25 MG/5 ML VIAL 10 MG IV PUSH (20:11)
[2023-02-01] MEDS: dilTIAZem 100 MG/100 ML 100 MG/100 ML BAG IV CONT (20:21)
--- NOTE | 2023-02-01 20:29 | PM.IMHP ---
H&P: HPI History of Present Illness Date/Time: 02/01/23 20:29 Chief Complaint: Fall, wrist pain Narrative: 77-year-old female with past medical history of coronary disease status post CABG, hypertrophic cardiomyopathy, cardiorenal syndrome and paroxysmal atrial fibrillation who presented to the ER after a fall with right wrist pain. The patient reports that she was sitting outside on a patio at [facility] living [facility]. She then went to get up and go inside. When she started to walk across the pedal she became lightheaded and sat back down. After few minutes she felt slightly better and got back up again and began walking across the patio. She reports that she actually does not remember the actual fall. She does remember getting up off the ground. She does not know if she hit her head. She and did feel lightheaded and had preceding symptoms. In the field her blood pressure was found to be 86 systolic. Her son who was at bedside states that the patient had a cardioversion for AFib on 01/24/[address] Stafford. He reports that post cardioversion her blood pressures were 80s over 40s. He reported blood pressure was 80/40. He reports that the early childhood special educator was not worried about the patient's blood pressure and went ahead and discharged her home. The patient denies having any palpitations currently or shortness of breath. When EMS arrived on the scene the patient had irregular heart rate. The patient arrived to the facility in AFib RVR with heart rates in the 130s. Patient's blood pressures when she arrived to our facility were low at 88 systolic. She received 2 L of fluid bolus. The patient received 2 doses of IV Lopressor without improvement in her heart rate. Her blood pressure did remain stable after initial fluid bolus. The patient was subsequently started on a Cardizem drip when no improvement in her heart rate with IV Lopressor. Patient's heart rate did improve with Cardizem. The patient states that she did take her home cardiac medications today. She reports recent changes in her cardiac medications but she does not know with the specific changes were. Her son reports that she was started on Lasix and the patient states that her leg swelling has improved since she has been placed on Lasix. She was also told to limit her water intake but she does not know what she is post limited 2. She reports a poor appetite and states that she has not been drinking much in the way of fluids. Labs in the ER demonstrated acute on chronic renal failure. The patient's creatinine has been trending upward on her outpatient labs with her creatinine of 1.7 when she followed up with Cardiology at [place] January 13. She does ambulate with a walker. She reported significant wrist pain on arrival to the ER and was found to have a comminuted fracture of the distal radius that was found to be in anatomic alignment after reduction. Patient's wrist was splinted. Patient does ambulate with a walker at her assisted living. The patient does report rib pain that is developed since she arrived to the ER. Is worse with deep breathing and palpation of her right lateral ribs. She reports that the pain is severe. She denies any significant shortness of breath. She has not had any cough. According to the progress note from 01/13/2023 for the patient's early childhood special educator it was recommended at that time the patient increased her Lasix to 40 mg b.i.d. and increase the metoprolol XL to 50 mg daily. The patient's home med rec currently states that her metoprolol is at 25 daily I suspect that this was decreased after her cardioversion. The patient states that she has not yet had a chance to follow-up with her early childhood special educator after her cardioversion. She stated they planned on doing an echocardiogram after her heart head settled following the cardioversion. Review of Systems Review of Systems: 12 systems were reviewed with pertinent positives and negatives per HPI. Except
[2023-02-01] MEDS: ONDANSETRON INJ 4 MG/2 ML VIAL IV PUSH (22:39)
[2023-02-01] MEDS: MORPHINE SULFATE (*CRX) 4 MG/ML INJ 2 MG IV PUSH (22:39)
--- NOTE | 2023-02-01 23:40 | ADMGEN ---
This patient, Tiera Lobato, was admitted to IMU Room 202-01 on 02/01/23 at 2326. Patient/family oriented to hospital policies and general routines including ID bracelet, bed and alarms, visiting hours, pain management, procedures, bathroom and other care routines, personal items, smoking policy, room service/diet, and visiting hours. Information on how to activate the Rapid Response Team has been discussed. Patient/Family are encouraged to report perceived risks to care and to ask questions if they do not understand what they are told or what they should do.
[2023-02-02] VITALS (18 sets, daily range): BP systolic 83–111; BP diastolic 45–76; PULSE 72–120; RESP 16–20; TEMP 36.4–36.7; O2SAT 93–100
[2023-02-02] MEDS: ACETAMINOPHEN 500 MG TABLET 1000 MG PO ×2 (04:31→14:42)
[2023-02-02 05:39] LABS: Hematocrit 31.8 % (37.0-47.0); Hemoglobin 9.9 g/dL (12.0-15.0); Mean Corpuscular HGB Conc 31.1 g/dl (32-36); Mean Corpuscular Hemoglobin 30.6 pg (26-34); Mean Corpuscular Volume 98.1 fl (80-100); Mean Platelet Volume 12.9 fl (7.4-10.4); Platelet Count Result 120 k/mm3 (150-375); Red Blood Count 3.24 M/mm3 (4.2-5.4); Red Cell Distribution Width 13.1 % (11.5-14.5); White Blood Count 4.8 K/mm3 (4.5-10.0)
[2023-02-02 06:02] LABS: Anion Gap 12 mmol/L (8-16); Blood Urea Nitrogen 61 mg/dL (7-17); Calcium 8.9 mg/dL (8.4-10.2); Carbon Dioxide 27 mmol/L (22-30); Chloride 103 mmol/L (98-107); Estimated CRCL calculation 24 ml/min; Estimated Glomerular Filt Rate 26; Glucose 94 mg/dL (65-110); Potassium 4.5 mmol/L (3.4-5.0); Sodium 142 mmol/L (137-145)
--- NOTE | 2023-02-02 08:19 | PCPTNOTE ---
Patient has consult with ortho doctor secondary to wrist fx, will hold off on seeing patient until after seen by ortho.
--- NOTE | 2023-02-02 08:39 | PM.CNOR ---
Assessment and Plan Assessment and plan (1) Intra-articular fracture of distal end of right radius with volar angulation: Qualifiers: Encounter type: initial encounter Qualified Code(s): S52.571A - Other intraarticular fracture of lower end of right radius, initial encounter for closed fracture Code(s): S52.571A - Other intraarticular fracture of lower end of right radius, initial encounter for closed fracture Status: Acute Plan 77-year-old female with a displaced right distal radius fracture. It is intra-articular. She has a really nice reduction. Likely be able to treat this closed. Plan on following up in the office in two weeks for x-ray. Probably get her into a shorter splint at that point. I will follow while she is in the hospital. History of Present Illness HPI Consult date: 02/02/23 Chief complaint: Afib,Distal Radius Fracture,CLAUDIA Narrative: 77-year-old female who fell yesterday suffering a right distal radius fracture. She underwent reduction in the emergency room along with splinting. She is quite comfortable. No other significant injuries with this occurrence. Review of Systems Review of Systems: 12 systems were reviewed with pertinent positives and negatives per HPI. Except as documented in the HPI, all other systems were reviewed and are negative. Patient does seem a little bit forgetful. She reports she has some age related memory loss but denies a known history of dementia. She denies any urinary urgency or frequency. She reports normal bowel movements. She denies any [facility] Past Medical History Medical History (Updated 02/02/23 @ 08:42 by Nick Carbajal MD) Atherosclerotic heart disease of [place] coronary artery without angina pectoris Benign positional vertigo Cardiorenal syndrome with renal failure Chronic idiopathic constipation Chronic kidney disease, stage 3a Chronic lower back pain Compression fracture of thoracic spine, non-traumatic T11 2018 Diverticulitis With history of perforation DVT (deep venous thrombosis) Distant past Gastro-esophageal reflux disease without esophagitis Hyperlipidemia Hypertrophic cardiomyopathy Apical variant noted on cardiac MRI 08/22/2022 Intra-articular fracture of distal end of right radius with volar angulation Close reduction January 2023 Lumbar spinal stenosis Occlusion and stenosis of bilateral carotid arteries Osteoporosis Pancreatic cyst Paroxysmal A-fib With synchronized cardioversion 01/24/2023 Surgical History Surgical History History of bowel resection (~1992) Due to prior bowel perforation History of cholecystectomy History of lumbar surgery (~1998) Lumbar diskectomy History of total right knee replacement (~2017) S/P CABG x 2 (2012) LAWSON to LAD and saphenous vein graft to obtuse marginal Status post cataract extraction of both eyes with insertion of intraocular lens Family History Family History Father Malignant neoplasm of prostate Mother Alzheimer's dementia Sibling Alzheimer's dementia Social History Social History Social History: Patient lives in [facility]. She ambulates with a walker. She has 3 sons. And 4 grandchildren.. She denies having a pet. She was and her last Jul 2020 from recurrent polio infection and acute brain bleed. Code status: The patient initially stated she wanted be a DNR DNI. However her son stated that he wanted to give her every chance for recovery that is possible. After discussion of risks and benefits the son still requests the patient be a full code. The patient verbalized that she would not want to be on a ventilator long-term and would not want a tracheostomy are PEG. She reports that she wants all 3 of her sons to share in the decision making process if sh
[2023-02-02] MEDS: METOPROLOL SUCCINATE EXT REL 25 MG TABCR PO (09:11)
[2023-02-02] MEDS: GABAPENTIN 300 MG CAPSULE 600 MG PO ×4 (09:11→20:59)
[2023-02-02] MEDS: SERTRALINE HCL 50 MG TABLET PO (09:11)
[2023-02-02] MEDS: APIXABAN 5 MG TABLET PO ×2 (09:12→17:29)
[2023-02-02] MEDS: EZETIMIBE 10 MG TABLET PO (09:12)
[2023-02-02] MEDS: ATORVASTATIN 40 MG TABLET 80 MG PO (09:12)
--- NOTE | 2023-02-02 10:55 | PCOTNOTE ---
Attempted to see patient for OT evaluation. Per RN, patient having low BP at this time. Will continue to attempt.
--- NOTE | 2023-02-02 11:16 | PM.CNCAR ---
Assessment and Plan Assessment and plan (1) Atrial fibrillation with rapid ventricular response: Code(s): I48.91 - Unspecified atrial fibrillation Status: Acute Plan This is a 77-year-old lady with chronic stable coronary artery disease status post bypass grafting in 2014 who has recently developed atrial fibrillation. She also has apical hypertrophy according to the records from [place]. Despite DC cardioversion at [place] couple of weeks ago she is back in atrial fibrillation by her history she was back in atrial fib within about 24 hours of the procedure. At this point I would discontinue her diltiazem and lisinopril given her hypotension and I am going to initiate more aggressive antiarrhythmic therapy with sotalol starting little later this afternoon after the diltiazem washes out for a little while. She should continue of course on anticoagulation with apixaban. If she persistent atrial fib then I would anticipate attempting another DC cardioversion probably on Friday of this week after she has had at least 4-5 doses of sotalol on board. Reddy Monahan MD [facility] History of Present Illness History of Present Illness Consult date/time: 02/02/23 11:16 Reason For Visit: Afib,Distal Radius Fracture,CLAUDIA Narrative: This is a 77-year-old lady I am seeing at the request of the hospitalist today for assistance with the management of atrial fibrillation. The patient is not known to me prior to this encounter. She does receive care from a director physical at [place] for coronary artery disease and atrial fibrillation. She is a very pleasant lady who was brought [facility] yesterday after falling in her home. Patient became very lightheaded it is questionable whether she lost consciousness or not. She did have a fall and sustained a fracture of her distal radius which was reduced in the emergency room. She was known to be in atrial fibrillation with RVR in the emergency room was placed on some intravenous diltiazem and admitted to the hospital. She has a history of coronary artery disease dating back to 2014 she describes having been found to have coronary disease at [facility]. Because and attempted percutaneous revascularization failed she underwent a 2 vessel bypass operation which she says was successful and she has done very well with respect to her coronary disease. According to the notes from [place] she also has a diagnosis of the apical variety of hypertrophic cardiomyopathy. She was found recently be in atrial fibrillation in her director physical anticoagulated her with apixaban and performed DC cardioversion at [facility] on the of this month. According to the patient who by the following day she was back in atrial fibrillation as was found by vital signs at a visiting nurse who sees her and was documenting her heart rate to be rapid and irregular again. Other than noting her heart rate to be rapid she was not greatly symptomatic with this. She states that her director physical was going to prescribe some additional medication for this but she can not really detail specifically what that was. In any event she is now receiving intravenous diltiazem as well as lisinopril. She is essentially asymptomatic but blood pressures have been marginal in the high 80s to mid 90s. She in this setting is being seen in consultation. Her lab data on admission showed LA evidence of an acute kidney injury her creatinine which was previously normal was up to 2.3 this morning creatinine with some hydration is down to 1.9. Review of Systems Constitutional: Constitutional: Reports no additional constitutional complaints Eyes: Eyes: Reports no additional eye complaints ENT: Reports system reviewed and no additional complaints, except as documented Cardiovascular: Cardiovascular: Reports no additional cardiovascular complaints Respiratory: Respiratory: Reports no additional respiratory complaints Gastrointestinal: Gastrointestinal
--- NOTE | 2023-02-02 11:47 | PCPTNOTE ---
Nursing reports patient is no hold today secondary to low BP.
[2023-02-02 12:14] LABS: Glucose Point of Care 89 mg/dl (65-105)
[2023-02-02] MEDS: SOTALOL HCL 80 MG TABLET PO ×2 (14:43→20:58)
--- NOTE | 2023-02-02 15:06 | PM.IMPN ---
Progress Note: A&P Assessment and Plan (1) Atrial fibrillation with rapid ventricular response: Code(s): I48.91 - Unspecified atrial fibrillation Status: Acute Assessment and Plan: The patient probably has chronic AFib. She was successfully cardioverted on 01/24 but back in AFib a few days later. She is on Eliquis for her AFib. She was noted to have AFib/RVR on admission. She was started on Cardizem drip. Her home metoprolol resumed. She required IV metoprolol at times. Rate became better controlled. BP became soft. Cardiology consulted and patient changed from diltiazem to Sotalol. Lisinopril stopped due to the low blood pressure. Lasix held as well. Will check TSH. Consider checking Echo but will defer to Cardiology. Hold home metoprolol. (2) Transient hypotension: Code(s): I95.9 - Hypotension, unspecified Status: Acute Assessment and Plan: Patient lightheaded with standing and fell. Unclear if she had loss of consciousness. She is unsure if she hit her head. Systolic BP in the filed was 86. Also was noted to be HoTN after her cardioversion on 01/24/23 and she may be having intermittent HoTN at home. Suspect patient over-diuresed. BP here was 88/59. Head CT showing no acute findings. Cervical spice CT also showing no acute findings. Rt knee xray negative. CXR clear. CT chest showing no new rib fractures. BP improved but dropped again this morning to 83/45. Lisinopril stopped. Medications adjusted as above. BP better now. Check cortisol. Follow. (3) Closed fracture of right distal radius: Qualifiers: Encounter type: initial encounter Fracture morphology: unspecified fracture morphology Qualified Code(s): S52.501A - Unspecified fracture of the lower end of right radius, initial encounter for closed fracture Code(s): S52.501A - Unspecified fracture of the lower end of right radius, initial encounter for closed fracture Status: Acute Assessment and Plan: Patient complaining of wrist pain and xray showing comminuted intra-articular fracture of the distal radius. Patient in soft cast. Orthopedic surgery was consulted. PT/OT. (4) Acute kidney injury superimposed on chronic kidney disease: Code(s): N17.9 - Acute kidney failure, unspecified; N18.9 - Chronic kidney disease, unspecified Status: Acute Assessment and Plan: Baseline Cr runs 0.9-1.1. Cr 2.3 on admission likely due to Lasix, lisinopril/diclofenac and HoTN. She received 2L IVF in the ED. Maintenance fluids stopped. Cr down to 1.9 today. Will hold on resuming IV fluids and allow her to re-hydrate. Check renal US. Continue to hold nephrotoxic medications. (5) Hypertrophic cardiomyopathy: Code(s): I42.2 - Other hypertrophic cardiomyopathy Status: Acute Assessment and Plan: The patient did receive 2 L of fluid bolus in the ER. Initially the patient was placed on maintenance IV fluids but the patient appears relatively euvolemic on exam so IV fluids stopped. Continue 2 g sodium diet. (6) Fall: Code(s): W19.XXXA - Unspecified fall, initial encounter Status: Acute Assessment and Plan: The patient does have chronic gait instability and ambulates with a walker. She will likely need placed in acute rehab until she can ambulate with a walker again. PT OT dyllan for discharge recommendations. Will consult case management. As above Subjective Date/time seen: 02/02/23 15:06 Interval history: 77yo female with AFib, CAD s/p CABG and CKD here for fall and srist pain. She feels achy 'all over' but mostly right sided ribs and right wrist. She was pAFib but became more chronic. She had cardioversion on 01/24/23 that was successful initially but back in AFib a few days later. No CP or SOB. Had chronic MCDANIELS since developing AFib in May. Exam Narrative: AF 98.0 101/52 110 16 98% ra Gen - NARD Chest - lungs clear anteriorly and in the flanks. nml RR C
--- NOTE | 2023-02-02 16:30 | ECG_ITS ---
Measurements Intervals [place] Rate: 99 P: [place]: 0 QRS: 15 QRSD: 100 T: 154 QT: 314 QTc: 404 Interpretive Statements ATRIAL FIBRILLATION NONSPECIFIC ST & T-WAVE ABNORMALITY ABNORMAL ECG COMPARED TO ECG 02/01/2023 16:08:44 NO SIGNIFICANT CHANGES Electronically Signed On 02-03-2023 7:31:11 CDT by Reddy Monahan M.D.
[2023-02-02 17:09] LABS: Glucose Point of Care 103 mg/dl (65-105)
[2023-02-02] MEDS: PANTOPRAZOLE 40 MG TABLET PO (20:59)
[2023-02-02] MEDS: fentaNYL CITRATE INJ (*CRX) 100 MCG/2 ML VIAL 25 MCG IV PUSH (21:28)
[2023-02-03] VITALS (18 sets, daily range): BP systolic 88–112; BP diastolic 40–51; PULSE 54–105; RESP 16–20; TEMP 36.2–36.6; O2SAT 96–100
[2023-02-03] MEDS: ACETAMINOPHEN 500 MG TABLET 1000 MG PO ×4 (04:54→20:47)
[2023-02-03 06:24] LABS: Iron 43 ug/dL (37-170)
[2023-02-03 06:30] LABS: Percent Iron Saturation 11 % (20-50)
[2023-02-03 06:32] LABS: Albumin Level 3.9 g/dL (3.5-5.1); Anion Gap 6 mmol/L (8-16); Blood Urea Nitrogen 48 mg/dL (7-17); Calcium 9.4 mg/dL (8.4-10.2); Carbon Dioxide 28 mmol/L (22-30); Chloride 107 mmol/L (98-107); Estimated CRCL calculation 30 ml/min; Estimated Glomerular Filt Rate 34; Glucose 95 mg/dL (65-110); Magnesium 1.8 mg/dL (1.6-2.3); Phosphorus 3.3 mg/dL (2.5-4.5); Potassium 4.5 mmol/L (3.4-5.0); Sodium 141 mmol/L (137-145)
[2023-02-03 07:28] LABS: Folic Acid 14.4 ng/mL (2.76->20)
--- NOTE | 2023-02-03 08:57 | PCOTNOTE ---
Attempted to see pt., pt. currently experiencing low BP, nursing stating that pt. will serenity receiving new dosage of medication, and will attempt when medically appropriate.
--- NOTE | 2023-02-03 09:32 | PCPTNOTE ---
Addendum entered by Taylor Greene, PT 02/03/23 16:19: Pt's BP remains low at this time to safely participate in skilled therapy- will continue to follow Original Note: Spoke with Dr. Ruth (current hospitalist), OK to hold pt until this afternoon to see it BP improves. Will follow.
[2023-02-03] MEDS: ATORVASTATIN 40 MG TABLET 80 MG PO (09:35)
[2023-02-03] MEDS: EZETIMIBE 10 MG TABLET PO (09:35)
[2023-02-03] MEDS: SERTRALINE HCL 50 MG TABLET PO (09:35)
[2023-02-03] MEDS: GABAPENTIN 300 MG CAPSULE 600 MG PO ×4 (09:35→21:00)
[2023-02-03] MEDS: APIXABAN 5 MG TABLET PO ×2 (09:35→18:47)
[2023-02-03] MEDS: SOTALOL HCL 40 MG TABLET PO ×2 (09:35→21:00)
--- NOTE | 2023-02-03 10:34 | PM.PNCARD ---
Progress Note: A&P Assessment and Plan (1) Atrial fibrillation with rapid ventricular response: Code(s): I48.91 - Unspecified atrial fibrillation Status: Acute Plan This is a 77-year-old lady with chronic stable coronary artery disease status post bypass grafting in 2014 who has recently developed atrial fibrillation. She also has apical hypertrophy according to the records from [place]. Despite DC cardioversion at [place] couple of weeks ago she is back in atrial fibrillation by her history she was back in atrial fib within about 24 hours of the procedure. Converted to NSR on sotalol BP soft, to sotalol dose decreased to 40mg b.i.d. EKG post sotalol dose x 5 doses Daily BMP, K+ goal >4.0 Daily Mag, goal >2.0 Continue telemetry Subjective Date/time seen: 02/03/23 10:34 Interval history: Cardiology follow up for atrial fibrillation She feels well this morning. Converted to sinus rhythm last night. Has had some low blood pressure measurements, but is asymptomatic. Review of Systems Constitutional: Constitutional: Reports no additional constitutional complaints Eyes: Eyes: Reports no additional eye complaints ENT: Reports system reviewed and no additional complaints, except as documented Cardiovascular: Cardiovascular: Reports no additional cardiovascular complaints Respiratory: Respiratory: Reports no additional respiratory complaints Gastrointestinal: Gastrointestinal: Reports no additional gastrointestinal complaints Integumentary/Breasts: Skin/Breast: Reports system reviewed and no additional complaints, except as docu Endocrine: Endocrine: Reports no additional endocrine complaints Hematologic/Lymphatic: Hematologic/Lymphatic: Reports no additional hematologic/lymphatic complaints Allergic/Immunologic: Allergic/Immunologic: Reports no additional allergic/immunologic complaints Exam Const: General: comfortable Other: This is a very pleasant elderly white female sitting in the chair giving herself a bath. HENMT: Mouth: Yes moist mucous membranes Eyes: Sclera: sclerae normal Neck: Neck: supple and no JVD Resp: Effort & Inspection: normal respiratory effort Auscultation: clear to auscultation bilaterally Cardio: Rate: regular rate Rhythm: regular rhythm Heart sounds: no murmurs GI: Auscultation: normal bowel sounds Skin: General skin exam: normal color Neuro: Other: Alert and oriented x3 Extrem: Other: The right arm is in a immobilizer/cast Objective Data Vital Signs Vital Signs: Vital Signs - 24 hr 02/02/23 10:37 02/02/23 10:37 02/02/23 12:00 Temperature 36.7 C Pulse Rate 72 Respiratory Rate 16 Blood Pressure 97/63 L 89/68 L 101/52 L Pulse Oximetry 98 Oxygen Delivery 02/02/23 12:00 02/02/23 12:00 02/02/23 14:00 Temperature Pulse Rate 87 89 Respiratory Rate Blood Pressure Pulse Oximetry Oxygen Delivery Room Air 02/02/23 14:43 02/02/23 16:00 02/02/23 18:00 Temperature Pulse Rate 110 H 106 H 108 H Respiratory Rate Blood Pressure Pulse Oximetry Oxygen Delivery 02/02/23 16:00 02/02/23 16:00 02/02/23 20:00 Temperature 36.7 C 36.4 C Pulse Rate 97 98 Respiratory Rate 16 18 Blood Pressure 99/51 L 104/60 Pulse Oximetry 93 99 Oxygen Delivery Room Air 02/02/23 20:58 02/02/23 20:00 02/02/23 20:00 Temperature Pulse Rate 103 H 120 H Respiratory Rate Blood Pressure Pulse Oximetry 99 Oxygen Delivery Room Air 02/02/23 22:00 02/02/23 23:59 02/03/23 00:00 Temperature 36.4 C Pulse Rate 106 H 116 H 105 H Respiratory Rate 20 Blood Pressure 111/76 Pulse Oximetry 100 Oxygen Delivery 02/03/23 00:00 02/03/23 02:00 02/03/23 00:29 Temperature Pulse Rate 59 L 68 Respiratory Rate Blood Pressure Pulse Oximetry 100 Oxygen Delivery Room Air 02/03/23 04:00 02/03/23 04:00 02/03/23 04:00 Temperature 36.2 C L Pulse Rate 59 L 5
[2023-02-03] MEDS: MAGNESIUM SULF 2 GM/WATER 50ML 2 GM/50 ML BAG IVPB (11:32)
--- NOTE | 2023-02-03 14:08 | PM.IMPN ---
Progress Note: A&P Assessment and Plan (1) Atrial fibrillation with rapid ventricular response: Code(s): I48.91 - Unspecified atrial fibrillation Status: Acute Assessment and Plan: The patient with AFib since May. She was successfully cardioverted on 01/24 but back in AFib a few days later. She is on Eliquis for her AFib. She was noted to have AFib/RVR on admission. TSH normal. She was started on Cardizem drip. Her home metoprolol resumed. She required IV metoprolol at times. Rate became better controlled. BP became soft. Cardiology consulted and patient changed from diltiazem/metoprolol to Sotalol. Lisinopril stopped due to the low blood pressure. Lasix held as well. She converted to NSR. BP soft this morning so Sotalol dose decreased. QTc 442. Follow on tele. (2) Transient hypotension: Code(s): I95.9 - Hypotension, unspecified Status: Acute Assessment and Plan: Patient lightheaded with standing and fell. Unclear if she had loss of consciousness. She is unsure if she hit her head. Systolic BP in the filed was 86. Also was noted to be HoTN after her cardioversion on 01/24/23 and she may be having intermittent HoTN at home. Suspect patient over-diuresed. BP here was 88/59. lisinopril, lasix and metoprolol stopped. Head CT showing no acute findings. Cervical spice CT also showing no acute findings. Rt knee xray negative. CXR clear. CT chest showing no new rib fractures. BP improved but dropped again this morning to 88/40. Cortisol 13. Sotalol dose decreased. BP better. Follow. (3) Closed fracture of right distal radius: Qualifiers: Encounter type: initial encounter Fracture morphology: unspecified fracture morphology Qualified Code(s): S52.501A - Unspecified fracture of the lower end of right radius, initial encounter for closed fracture Code(s): S52.501A - Unspecified fracture of the lower end of right radius, initial encounter for closed fracture Status: Acute Assessment and Plan: Patient complaining of wrist pain and xray showing comminuted intra-articular fracture of the distal radius. Patient in soft cast. Orthopedic surgery following and appreciate their input. PT/OT. (4) Acute kidney injury superimposed on chronic kidney disease: Code(s): N17.9 - Acute kidney failure, unspecified; N18.9 - Chronic kidney disease, unspecified Status: Acute Assessment and Plan: Baseline Cr runs 0.9-1.1. Cr 2.3 on admission likely due to Lasix, lisinopril/diclofenac and HoTN. She received 2L IVF in the ED. Maintenance fluids stopped. Cr down to 1.5 today. Renal US pending. Continue to allow her to re-hydrate. Continue to hold nephrotoxic medications. (5) Hypertrophic cardiomyopathy: Code(s): I42.2 - Other hypertrophic cardiomyopathy Status: Acute Assessment and Plan: The patient did receive 2 L of fluid bolus in the ER. Initially the patient was placed on maintenance IV fluids but the patient appears relatively euvolemic on exam so IV fluids stopped. Continue 2 g sodium diet. (6) Fall: Code(s): W19.XXXA - Unspecified fall, initial encounter Status: Acute Assessment and Plan: The patient does have chronic gait instability and ambulates with a walker. She will likely need placed in acute rehab until she can ambulate with a walker again. PT OT dyllan for discharge recommendations. Subjective Date/time seen: 02/03/23 14:08 Interval history: 77yo female with AFib, CAD s/p CABG and CKD here for fall and srist pain. No CP or SOB. +MCDANIELS. Right arm pain worse and cast feels tight. Exam Narrative: AF 97.8 105/41 58 19 96% ra Gen - NARD Chest - CTA bilaterally CV - RRR S1/S2. Tele showing NSR Abd - Soft, NT/ND, Positive BS Ext - No pedal edema. right hand/wrist in soft cast that has room. nml sensation and movements to the right fingers Psych - Nml mood and affect Skin - Warm and dry. Objectiv
--- NOTE | 2023-02-03 16:30 | ECG_ITS ---
Measurements Intervals [place] Rate: 52 P: -1 [place]: 185 QRS: 13 QRSD: 97 T: 63 QT: 472 QTc: 443 Interpretive Statements SINUS BRADYCARDIA NONSPECIFIC ST AND T-WAVE ABNORMALITY COMPARED TO ECG 02/03/2023 12:01:08 NO SIGNIFICANT CHANGES Electronically Signed On 02-04-2023 11:15:24 CDT by Yaneli Perry M.D.
--- NOTE | 2023-02-03 16:30 | ECG_ITS ---
Measurements Intervals [place] Rate: 54 P: -2 SD: 175 QRS: 10 QRSD: 106 T: 104 QT: 466 QTc: 442 Interpretive Statements SINUS BRADYCARDIA NONSPECIFIC ST & T-WAVE ABNORMALITY COMPARED TO ECG 02/02/2023 17:50:42 SINUS RHYTHM REPLACES ATRIAL FIBRILLATION Electronically Signed On 02-03-2023 12:10:59 CDT by Reddy Monahan M.D.
[2023-02-03] MEDS: PANTOPRAZOLE 40 MG TABLET PO (21:01)
--- NOTE | 2023-02-03 22:46 | ECG_ITS ---
Measurements Intervals [place] Rate: 53 P: 2 [place]: 181 QRS: 15 QRSD: 104 T: 91 QT: 434 QTc: 408 Interpretive Statements SINUS BRADYCARDIA NONSPECIFIC ST & T-WAVE ABNORMALITY COMPARED TO ECG 02/03/2023 16:40:02 NO SIGNIFICANT CHANGES Electronically Signed On 02-04-2023 11:19:57 CDT by Yaneli Perry M.D.
[2023-02-04] VITALS (14 sets, daily range): BP systolic 101–124; BP diastolic 51–82; PULSE 46–62; RESP 16–20; TEMP 36.2–36.6; O2SAT 96–99
[2023-02-04 05:00] LABS: Hemoglobin 8.8 g/dL (12.0-15.0); Mean Corpuscular HGB Conc 30.3 g/dl (32-36); Mean Corpuscular Hemoglobin 30.3 pg (26-34); Mean Platelet Volume 12.7 fl (7.4-10.4); Platelet Count Result 112 k/mm3 (150-375); White Blood Count 4.1 K/mm3 (4.5-10.0)
[2023-02-04 05:17] LABS: Albumin Level 3.6 g/dL (3.5-5.1); Anion Gap 4 mmol/L (8-16); Blood Urea Nitrogen 44 mg/dL (7-17); Calcium 9.4 mg/dL (8.4-10.2); Carbon Dioxide 29 mmol/L (22-30); Chloride 106 mmol/L (98-107); Estimated CRCL calculation 30 ml/min; Estimated Glomerular Filt Rate 34; Glucose 90 mg/dL (65-110); Magnesium 2.4 mg/dL (1.6-2.3); Phosphorus 3.9 mg/dL (2.5-4.5); Potassium 4.5 mmol/L (3.4-5.0); Sodium 139 mmol/L (137-145)
[2023-02-04] MEDS: EZETIMIBE 10 MG TABLET PO (09:47)
[2023-02-04] MEDS: APIXABAN 5 MG TABLET PO ×2 (09:47→17:01)
[2023-02-04] MEDS: SOTALOL HCL 40 MG TABLET PO ×2 (09:48→21:09)
[2023-02-04] MEDS: SERTRALINE HCL 50 MG TABLET PO (09:48)
[2023-02-04] MEDS: ATORVASTATIN 40 MG TABLET 80 MG PO (09:48)
[2023-02-04] MEDS: GABAPENTIN 300 MG CAPSULE 600 MG PO ×4 (09:49→21:09)
--- NOTE | 2023-02-04 10:31 | P.PNIM_ITS ---
Progress Note: A&P Assessment and Plan (1) Atrial fibrillation with rapid ventricular response: Code(s): I48.91 - Unspecified atrial fibrillation Status: Acute Assessment and Plan: The patient with AFib since May. She was successfully cardioverted on 01/24 but back in AFib a few days later. She is on Eliquis for her AFib. She was noted to have AFib/RVR on admission. TSH was normal. She was started on Cardizem drip. Her home metoprolol resumed. She required IV metoprolol at times. Rate became better controlled. BP became soft. Cardiology consulted and patient changed from diltiazem/metoprolol to Sotalol. Lisinopril stopped due to the low blood pressure. Lasix held as well. She converted to NSR. BP soft yesterday so Sotalol dose decreased. QTc 408. Follow on tele. (2) Transient hypotension: Code(s): I95.9 - Hypotension, unspecified Status: Acute Assessment and Plan: Patient lightheaded with standing and fell. Unclear if she had loss of consciousness. She is unsure if she hit her head. Systolic BP in the field was 86. Also was noted to be HoTN after her cardioversion on 01/24/23 and she may be having intermittent HoTN at home. Head CT showing no acute findings. Cervical spice CT also showing no acute findings. Rt knee xray negative. CXR clear. CT chest showing no new rib fractures. Cortisol 13. Suspect patient over-diuresed. BP here was 88/59. As above but now lisinopril, lasix and metoprolol stopped. BP improved but dropped again to 88/40. Sotalol dose decreased. BP better. Follow. (3) Closed fracture of right distal radius: Qualifiers: Encounter type: initial encounter Fracture morphology: unspecified fracture morphology Qualified Code(s): S52.501A - Unspecified fracture of the lower end of right radius, initial encounter for closed fracture Code(s): S52.501A - Unspecified fracture of the lower end of right radius, initial encounter for closed fracture Status: Acute Assessment and Plan: Patient complaining of wrist pain after the fall and xray showing comminuted intra-articular fracture of the distal radius. Patient in soft cast. Orthopedic surgery following and appreciate their input. Continue PT/OT. Placement being ar ranged. (4) Acute kidney injury superimposed on chronic kidney disease: Code(s): N17.9 - Acute kidney failure, unspecified; N18.9 - Chronic kidney disease, unspecified Status: Acute Assessment and Plan: Baseline Cr runs 0.9-1.1. Cr 2.3 on admission likely due to Lasix, lisinopril/diclofenac and HoTN. She received 2L IVF in the ED. Maintenance fluids stopped. Cr down to 1.5 and stable. Renal US showing left renal cyst and mild bladder wall thickening. UA essentially clear. UCx negative. Continue to allow her to re-hydrate. Continue to hold nephrotoxic medications. (5) Hypertrophic cardiomyopathy: Code(s): I42.2 - Other hypertrophic cardiomyopathy Status: Acute Assessment and Plan: The patient did receive 2 L of fluid bolus in the ER. Initially the patient was placed on maintenance IV fluids but the patient appears relatively euvolemic on exam so IV fluids stopped. Continue 2 g sodium diet. (6) Fall: Code(s): W19.XXXA - Unspecified fall, initial encounter Status: Acute Assessment and Plan: The patient does have chronic gait instability and ambulates with a walker. She will likely need placed in acute rehab until she can ambulate with a walker again. PT OT eval for discharge recommendations. Plan Pancytopenia - WBC dropped to 4100. Hgb normally in the 10-11 range and wa
--- NOTE | 2023-02-04 11:02 | PM.PNCARD ---
Progress Note: A&P Assessment and Plan (1) Atrial fibrillation with rapid ventricular response: Code(s): I48.91 - Unspecified atrial fibrillation Status: Acute Plan This is a 77-year-old lady with chronic stable coronary artery disease status post bypass grafting in 2014 who has recently developed atrial fibrillation. She also has apical hypertrophy according to the records from [facility]. Despite DC cardioversion at [facility] couple of weeks ago she is back in atrial fibrillation by her history she was back in atrial fib within about 24 hours of the procedure. Converted to NSR on sotalol BP soft, so sotalol dose decreased to 40mg b.i.d. EKG post sotalol dose x 5 doses. Rec'd 5th dose this morning. If QTc stable on EKG, can be discharged from a cardiac perspective. Daily BMP, K+ goal >4.0 Daily Mag, goal >2.0 Continue telemetry until d/c Follow up with her universal banker at [facility]. She has been instructed to move up her follow up appointment (currently in May) Subjective Date/time seen: 02/04/23 11:02 Interval history: Cardiology follow up for atrial fibrillation Remains in sinus rhythm. QTc stable. Patient feeling well this morning with no complaints. Review of Systems Constitutional: Constitutional: Reports no additional constitutional complaints Eyes: Eyes: Reports no additional eye complaints ENT: Reports system reviewed and no additional complaints, except as documented Cardiovascular: Cardiovascular: Reports no additional cardiovascular complaints Respiratory: Respiratory: Reports no additional respiratory complaints Gastrointestinal: Gastrointestinal: Reports no additional gastrointestinal complaints Integumentary/Breasts: Skin/Breast: Reports system reviewed and no additional complaints, except as docu Endocrine: Endocrine: Reports no additional endocrine complaints Hematologic/Lymphatic: Hematologic/Lymphatic: Reports no additional hematologic/lymphatic complaints Allergic/Immunologic: Allergic/Immunologic: Reports no additional allergic/immunologic complaints Exam Const: General: comfortable Other: This is a very pleasant elderly white female sitting in the chair giving herself a bath. HENMT: Mouth: Yes moist mucous membranes Eyes: Sclera: sclerae normal Neck: Neck: supple and no JVD Resp: Effort & Inspection: normal respiratory effort Auscultation: clear to auscultation bilaterally Cardio: Rate: regular rate Rhythm: regular rhythm and abnormal rhythm irregularly irregular Heart sounds: no murmurs GI: Auscultation: normal bowel sounds Skin: General skin exam: normal color Neuro: Other: Alert and oriented x3 Extrem: Other: The right arm is in a immobilizer/cast Objective Data Vital Signs Vital Signs: Vital Signs - 24 hr 02/03/23 12:00 02/03/23 12:00 02/03/23 14:00 Temperature 36.6 C Pulse Rate 58 L 55 L 58 L Respiratory Rate 19 Blood Pressure 105/41 L Pulse Oximetry 96 Oxygen Delivery 02/03/23 15:58 02/03/23 16:00 02/03/23 16:00 Temperature 36.5 C Pulse Rate 55 L 54 L Respiratory Rate 16 Blood Pressure 88/51 L Pulse Oximetry 97 97 Oxygen Delivery 02/03/23 18:00 02/03/23 20:00 02/03/23 20:00 Temperature 36.3 C L Pulse Rate 55 L 55 L 66 Respiratory Rate 16 20 Blood Pressure 101/48 L Pulse Oximetry 97 98 Oxygen Delivery Room Air 02/03/23 21:00 02/03/23 20:00 02/03/23 23:25 Temperature 36.2 C L Pulse Rate 54 L 59 L 55 L Respiratory Rate 18 Blood Pressure 101/46 L Pulse Oximetry 97 Oxygen Delivery 02/04/23 00:00 02/03/23 22:00 02/04/23 00:00 Temperature Pulse Rate 55 L 54 L 52 L Respiratory Rate 18 Blood Pressure Pulse Oximetry 97 Oxygen Delivery Room Air 02/04/23 02:00 02/04/23 04:00 02/04/23 04:00 Temperature 36.2 C L Pulse Rate 49 L 61 61 Respiratory Rate 20 20 Blood Pressure 116/51 L Pulse Oximetry 97 97 Oxygen Delivery Room
--- NOTE | 2023-02-04 11:45 | ECG_ITS ---
Measurements Intervals [place] Rate: 50 P: -4 MT: 177 QRS: 15 QRSD: 99 T: 86 QT: 447 QTc: 409 Interpretive Statements SINUS BRADYCARDIA WITH SINUS ARRHYTHMIA NONSPECIFIC ST & T-WAVE ABNORMALITY COMPARED TO ECG 02/04/2023 12:10:54 NO SIGNIFICANT CHANGES Electronically Signed On 02-05-2023 11:33:33 CDT by Yaneli Perry M.D.
--- NOTE | 2023-02-04 14:52 | PM.PNORT ---
Progress Note: A&P Assessment and Plan (1) Intra-articular fracture of distal end of right radius with volar angulation: Qualifiers: Encounter type: initial encounter Qualified Code(s): S52.571A - Other intraarticular fracture of lower end of right radius, initial encounter for closed fracture Code(s): S52.571A - Other intraarticular fracture of lower end of right radius, initial encounter for closed fracture Status: Acute Plan 77-year-old female doing well with reduction and sugar-tong splint. Continue to plan conservative treatment. Follow-up in 2 weeks for new x-ray in the office. Following. Subjective Subjective Date/Time Seen: 02/04/23 14:52 Interval history: 77-year-old female with a reduced distal radius fracture. She is doing relatively well with the sugar-tong type splint. She does have some numbness into the pinky of the right hand but swelling is well controlled to the digits. Review of Systems Constitutional: Constitutional: Denies chills, Denies fever(s), Denies night sweats and Denies weakness Eyes: Eyes: Denies change in vision ENT: Reports Normal hearing present and Denies dizziness Cardiovascular: Cardiovascular: Denies chest pain, Denies lightheadedness and Denies dyspnea on exertion Respiratory: Respiratory: Denies dyspnea on exertion Gastrointestinal: Gastrointestinal: Denies abdominal pain Genitourinary: Genitourinary: Denies dysuria Musculoskeletal: Musculoskeletal: Reports no additional musculoskeletal complaints and Reports as per HPI Integumentary/Breasts: Skin/Breast: Denies lesions and Denies wounds Neurologic: Reports Normal hearing present, Denies confusion, Denies dizziness and Denies weakness Psychiatric: Psychiatric: Denies confusion and Denies paranoia Hematologic/Lymphatic: Hematologic/Lymphatic: Denies easy bleeding and Denies easy bruising Exam Const: General: cooperative, comfortable and no acute distress GI: Inspection: non-distended Skin: General skin exam: normal color Neuro: Sensory Exam: normal sensation (To tips of fingers right hand) Extrem: Other: Exam of the right upper extremity shows a well fitted sugar-tong splint. Mild swelling to the digits. Good capillary refill to fingertips. Intact sensation to fingertips. Neurovascular status right upper extremity is intact. Psych: Mental Status: mental status grossly normal Objective Data Vital Signs Vital Signs: Vital Signs - 24 hr 02/03/23 15:58 08/21/23 16:00 02/03/23 16:00 Temperature 97.7 F Pulse Rate 55 L 54 L Respiratory Rate 16 Blood Pressure 88/51 L Pulse Oximetry 97 97 Oxygen Delivery 02/03/23 18:00 02/03/23 20:00 02/03/23 20:00 Temperature 97.4 F L Pulse Rate 55 L 55 L 66 Respiratory Rate 16 20 Blood Pressure 101/48 L Pulse Oximetry 97 98 Oxygen Delivery Room Air 02/03/23 21:00 02/03/23 20:00 02/03/23 23:25 Temperature 97.1 F L Pulse Rate 54 L 59 L 55 L Respiratory Rate 18 Blood Pressure 101/46 L Pulse Oximetry 97 Oxygen Delivery 02/04/23 00:00 02/03/23 22:00 02/04/23 00:00 Temperature Pulse Rate 55 L 54 L 52 L Respiratory Rate 18 Blood Pressure Pulse Oximetry 97 Oxygen Delivery Room Air 02/04/23 02:00 02/04/23 04:00 02/04/23 04:00 Temperature 97.1 F L Pulse Rate 49 L 61 61 Respiratory Rate 20 20 Blood Pressure 116/51 L Pulse Oximetry 97 97 Oxygen Delivery Room Air 02/04/23 04:00 02/04/23 08:00 02/04/23 09:48 Temperature 98 F Pulse Rate 46 L 57 L 59 L Respiratory Rate 16 Blood Pressure 118/58 L Pulse Oximetry 96 Oxygen Delivery 02/04/23 08:30 02/04/23 10:00 02/04/23 12:00 Temperature 97.2 F L Pulse Rate 56 L 56 L 52 L Respiratory Rate 16 Blood Pressure 124/71 Pulse Oximetry 96 Oxygen Delivery 02/04/23 13:16 02/04/23 12:00 02/04/23 14:00 Temperature Pulse Rate 60 53 L Respiratory Rate Blood Pressure Pulse Oximetry
--- NOTE | 2023-02-04 16:30 | ECG_ITS ---
Measurements Intervals [place] Rate: 48 P: 0 [place]: 177 QRS: 16 QRSD: 100 T: 91 QT: 443 QTc: 399 Interpretive Statements SINUS BRADYCARDIA WITH SINUS ARRHYTHMIA NONSPECIFIC ST & T-WAVE ABNORMALITY COMPARED TO ECG 02/03/2023 22:46:14 SINUS ARRHYTHMIA NOW PRESENT Electronically Signed On 02-05-2023 11:27:26 CDT by Yaneli Perry M.D.
[2023-02-04] MEDS: ACETAMINOPHEN 500 MG TABLET 1000 MG PO ×2 (17:01→23:50)
[2023-02-04] MEDS: PANTOPRAZOLE 40 MG TABLET PO (21:09)
[2023-02-05] VITALS (14 sets, daily range): BP systolic 102–138; BP diastolic 46–74; PULSE 49–64; RESP 16–18; TEMP 36.2–36.9; O2SAT 96–100
[2023-02-05 05:35] LABS: Basophils Percent Auto 0.6 % (0.2-1.2); Eosinophils Absolute Auto 0.4 K/mm3 (0-0.3); Eosinophils Percent Auto 7.4 % (0-4.4); Hematocrit 29.7 % (37.0-47.0); Hemoglobin 9.1 g/dL (12.0-15.0); Immature Granulocyte Absolute 0.01 K/mm3 (0.00-0.031); Immature Granulocyte Percent A 0.2 % (0-0.5); Immature Platelet Fraction Pct 10.1 % (0.9-11.2); Lymphocytes Percent Auto 25.4 % (18.3-44.2); Mean Corpuscular HGB Conc 30.6 g/dl (32-36); Mean Corpuscular Hemoglobin 30.5 pg (26-34); Mean Corpuscular Volume 99.7 fl (80-100); Mean Platelet Volume 13.4 fl (7.4-10.4); Monocytes Absolute Auto 0.4 K/mm3 (0.1-0.6); Monocytes Percent Auto 7.8 % (2.6-8.5); Neutrophils Percent Auto 58.6 % (45.5-73.1); Platelet Count Result 123 k/mm3 (150-375); Red Blood Count 2.98 M/mm3 (4.2-5.4); Red Cell Distribution Width 12.6 % (11.5-14.5); White Blood Count 5.1 K/mm3 (4.5-10.0)
[2023-02-05 05:54] LABS: Anion Gap 1 mmol/L (8-16); Blood Urea Nitrogen 35 mg/dL (7-17); Calcium 9.5 mg/dL (8.4-10.2); Carbon Dioxide 29 mmol/L (22-30); Chloride 104 mmol/L (98-107); Estimated CRCL calculation 35 ml/min; Estimated Glomerular Filt Rate 40; Glucose 85 mg/dL (65-110); Magnesium 2.1 mg/dL (1.6-2.3); Potassium 4.6 mmol/L (3.4-5.0); Sodium 134 mmol/L (137-145)
[2023-02-05] MEDS: ACETAMINOPHEN 500 MG TABLET 1000 MG PO ×3 (06:12→20:27)
[2023-02-05] MEDS: LINACLOTIDE 145 MCG CAPSULE PO (06:12)
[2023-02-05] MEDS: SERTRALINE HCL 50 MG TABLET PO (09:39)
[2023-02-05] MEDS: SOTALOL HCL 40 MG TABLET PO ×2 (09:39→20:26)
[2023-02-05] MEDS: GABAPENTIN 300 MG CAPSULE 600 MG PO ×4 (09:40→20:27)
[2023-02-05] MEDS: ATORVASTATIN 40 MG TABLET 80 MG PO (09:42)
[2023-02-05] MEDS: EZETIMIBE 10 MG TABLET PO (09:42)
[2023-02-05] MEDS: APIXABAN 5 MG TABLET PO ×2 (09:42→17:30)
[2023-02-05] MEDS: MORPHINE SULFATE (*CRX) 2 MG/ML INJ IV PUSH (12:53)
[2023-02-05] MEDS: PANTOPRAZOLE 40 MG TABLET PO (20:27)
[2023-02-06] VITALS (10 sets, daily range): BP systolic 114–134; BP diastolic 48–71; PULSE 56–69; RESP 12–24; TEMP 36.5–37; O2SAT 94–100
[2023-02-06] MEDS: LINACLOTIDE 145 MCG CAPSULE PO (06:08)
[2023-02-06] MEDS: ACETAMINOPHEN 500 MG TABLET 1000 MG PO (06:08)
[2023-02-06] MEDS: EZETIMIBE 10 MG TABLET PO (08:47)
[2023-02-06] MEDS: SOTALOL HCL 40 MG TABLET PO ×2 (08:47→20:33)
[2023-02-06] MEDS: ATORVASTATIN 40 MG TABLET 80 MG PO (08:47)
[2023-02-06] MEDS: APIXABAN 5 MG TABLET PO ×2 (08:47→16:52)
[2023-02-06] MEDS: GABAPENTIN 300 MG CAPSULE 600 MG PO ×4 (08:47→20:33)
[2023-02-06] MEDS: SERTRALINE HCL 50 MG TABLET PO (08:48)
[2023-02-06] MEDS: PANTOPRAZOLE 40 MG TABLET PO (20:33)
[2023-02-06] MEDS: BACLOFEN 5 MG TABLET PO (22:33)
[2023-02-07] VITALS (7 sets, daily range): BP systolic 148; BP diastolic 65; PULSE 63–78; RESP 16; TEMP 36.7; O2SAT 96
[2023-02-07] MEDS: LINACLOTIDE 145 MCG CAPSULE PO (06:02)
--- NOTE | 2023-02-07 08:25 | PM.PNORT ---
Progress Note: A&P Assessment and Plan (1) Intra-articular fracture of distal end of right radius with volar angulation: Qualifiers: Encounter type: initial encounter Qualified Code(s): S52.571A - Other intraarticular fracture of lower end of right radius, initial encounter for closed fracture Code(s): S52.571A - Other intraarticular fracture of lower end of right radius, initial encounter for closed fracture Status: Acute Plan Well aligned intra-articular distal radius fracture. Continue splint. Plan to see in the office in a couple of weeks. Discussed proper arm positioning again. Being likely due to pressure on ulnar nerve while in bed and instructed how to avoid this. Following. Subjective Subjective Date/Time Seen: 02/07/23 08:25 Principal diagnosis: Intra-articular right distal radius fracture Interval history: Comfortable in right upper extremity splint. Minimal tingling in little finger now. Exam Const: General: cooperative Extrem: Other: Right upper extremity splint fitting well. Intact sensation to tips of all digits along with good capillary refill. Objective Data Vital Signs Vital Signs: Vital Signs - 24 hr 02/06/23 08:47 02/06/23 09:18 02/06/23 12:00 Temperature Pulse Rate 62 58 L Respiratory Rate Blood Pressure Pulse Oximetry 94 Oxygen Delivery Room Air 02/06/23 16:00 02/06/23 16:00 02/06/23 20:00 Temperature 98.3 F 97.7 F Pulse Rate 65 58 L 66 Respiratory Rate 12 16 Blood Pressure 114/50 L 120/71 Pulse Oximetry 100 96 Oxygen Delivery 02/06/23 20:33 02/06/23 20:00 02/06/23 20:00 Temperature Pulse Rate 69 65 Respiratory Rate Blood Pressure Pulse Oximetry Oxygen Delivery Room Air 02/06/23 23:49 02/07/23 00:00 02/07/23 04:00 Temperature 97.8 F Pulse Rate 69 69 64 Respiratory Rate 16 Blood Pressure 126/48 L Pulse Oximetry 95 Oxygen Delivery 02/07/23 07:44 Temperature 98.1 F Pulse Rate 63 Respiratory Rate 16 Blood Pressure 148/65 H Pulse Oximetry 96 Oxygen Delivery Intake/Output Intake/Output: Intake & Output 02/04/23 02/05/23 02/06/23 02/07/23 23:59 23:59 23:59 23:59 Intake Total 720 / 720 1492 / 1492 1630 / 1630 250 / 250 Output Total 1000 / 1000 600 / 600 2200 / 2200 500 / 500 Balance -280 / -280 892 / 892 -570 / -570 -250 / -250 Meds/Results Medications: Active Medications Generic Name Dose Route Start Last Admin Trade Name Freq PRN Reason Stop Dose Admin Acetaminophen 1,000 mg 02/02/23 01:46 02/06/23 06:08 Acetaminophen 500 Mg Tablet PO 1,000 mg Q6H PRN Administration Pain (Scale Score 1-3) Apixaban 5 mg 02/02/23 09:00 02/06/23 16:52 Apixaban 5 Mg Tablet PO 5 mg BID AGUS Administration Atorvastatin Calcium 80 mg 02/02/23 09:00 02/06/23 08:47 Atorvastatin 40 Mg Tablet PO 80 mg DAILY AGUS Administration Ezetimibe 10 mg 02/02/23 09:00 02/06/23 08:47 Ezetimibe 10 Mg Tablet PO 10 mg DAILY AGUS Administration Gabapentin 600 mg 02/02/23 09:00 02/06/23 20:33 Gabapentin 300 Mg Capsule PO 600 mg QID AGUS Administration Linaclotide 145 mcg 02/02/23 01:46 02/07/23 06:02 Linaclotide 145 Mcg Capsule PO 145 mcg DAILY PRN Administration Constipation Ondansetron HCl 4 mg 02/01/23 20:06 02/01/23 22:39 Ondansetron Inj 4 Mg/2 Ml Vial IV PUSH 4 mg Q4H PRN Administration Nausea Pantoprazole Sodium 40 mg 02/02/23 21:00 02/06/23 20:33 Pantoprazole 40 Mg Tablet PO 40 mg HS AGUS Administration Sertraline HCl 50 mg 02/02/23 09:00 02/06/23 08:48 Sertraline Hcl 50 Mg Tablet PO 50 mg DAILY AGUS Administration Sotalol HCl 40 mg 02/03/23 09:00 02/06/23 20:33 Sotalol Hcl 40 Mg Tablet PO 40 mg Q12HR AGUS Administration Radiology Results: ITS Impressions Head CT 02/01/23 16:49 IMPRESSION: 1. No acute intracranial abnormality. 2. Age related findings.
[2023-02-07] MEDS: SOTALOL HCL 40 MG TABLET PO (09:01)
[2023-02-07] MEDS: APIXABAN 5 MG TABLET PO (09:02)
[2023-02-07] MEDS: ATORVASTATIN 40 MG TABLET 80 MG PO (09:02)
[2023-02-07] MEDS: GABAPENTIN 300 MG CAPSULE 600 MG PO ×2 (09:02→13:53)
[2023-02-07] MEDS: EZETIMIBE 10 MG TABLET PO (09:02)
[2023-02-07] MEDS: SERTRALINE HCL 50 MG TABLET PO (09:02)
--- NOTE | 2023-02-07 11:47 | PM.DS ---
DS: Admitting Diagnosis Discharge Date February 07, 2023 Admitting Diagnosis Fall, radius fracture DS: Discharge Diagnosis Discharge Diagnosis (1) Atrial fibrillation with rapid ventricular response: Code(s): I48.91 - Unspecified atrial fibrillation Status: Acute Assessment and Plan: The patient with AFib since May. She was successfully cardioverted on 01/24 but back in AFib a few days later. She is on Eliquis for her AFib. She was noted to have AFib/RVR on admission. TSH was normal. She was started on Cardizem drip. Her home metoprolol resumed. She required IV metoprolol at times. Rate became better controlled. BP became soft. Cardiology consulted and patient changed from diltiazem/metoprolol to Sotalol. Lisinopril stopped due to the low blood pressure. Lasix held as well. She converted to NSR. BP soft yesterday so Sotalol dose decreased. QTc 408. Follow on tele. (2) Transient hypotension: Code(s): I95.9 - Hypotension, unspecified Status: Acute Assessment and Plan: Patient lightheaded with standing and fell. Unclear if she had loss of consciousness. She is unsure if she hit her head. Systolic BP in the field was 86. Also was noted to be HoTN after her cardioversion on 01/24/23 and she may be having intermittent HoTN at home. Head CT showing no acute findings. Cervical spice CT also showing no acute findings. Rt knee xray negative. CXR clear. CT chest showing no new rib fractures. Cortisol 13. Suspect patient over-diuresed. BP here was 88/59. As above but now lisinopril, lasix and metoprolol stopped. BP improved but dropped again to 88/40. Sotalol dose decreased. BP better. Follow. (3) Closed fracture of right distal radius: Qualifiers: Encounter type: initial encounter Fracture morphology: unspecified fracture morphology Qualified Code(s): S52.501A - Unspecified fracture of the lower end of right radius, initial encounter for closed fracture Code(s): S52.501A - Unspecified fracture of the lower end of right radius, initial encounter for closed fracture Status: Acute Assessment and Plan: Patient complaining of wrist pain after the fall and xray showing comminuted intra-articular fracture of the distal radius. Patient in soft cast. Orthopedic surgery following and appreciate their input. Continue PT/OT. Placement being arranged. (4) Acute kidney injury superimposed on chronic kidney disease: Code(s): N17.9 - Acute kidney failure, unspecified; N18.9 - Chronic kidney disease, unspecified Status: Acute Assessment and Plan: Baseline Cr runs 0.9-1.1. Cr 2.3 on admission likely due to Lasix, lisinopril/diclofenac and HoTN. She received 2L IVF in the ED. Maintenance fluids stopped. Cr down to 1.5 and stable. Renal US showing left renal cyst and mild bladder wall thickening. UA essentially clear. UCx negative. Continue to allow her to re-hydrate. Continue to hold nephrotoxic medications. (5) Hypertrophic cardiomyopathy: Code(s): I42.2 - Other hypertrophic cardiomyopathy Status: Acute Assessment and Plan: The patient did receive 2 L of fluid bolus in the ER. Initially the patient was placed on maintenance IV fluids but the patient appears relatively euvolemic on exam so IV fluids stopped. Continue 2 g sodium diet. (6) Fall: Code(s): W19.XXXA - Unspecified fall, initial encounter Status: Acute Assessment and Plan: The patient does have chronic gait instability and ambulates with a walker. She will likely need placed in acute rehab until she can ambulate with a walker again. PT OT eval for discharge recommendations. Plan Pancytopenia - WBC dropped to 4100. Hgb normally in the 10-11 range and was 10.5 on admission. Hgb has trended down to 8.8 today. Plt count was mildly low on admission at 145 and also has dropped to 112K today. Sotalol does cause eosinophilia, leukopenia and thrombocytopenia. B12/folate no
== END 2023-02-07 14:35 | disposition home health service (06) | DRG 563 ==
LOC: ANHED 20:10 → ANHIMU 02-02 01:11
PROVIDERS: Internal Medicine; Admitting Provider Internal Medicine; Emergency Provider Physician Assistant; PCP Family Medicine Adolescent Medicine; Visit Provider Chiropractor
DX: S52.571A Other intraarticular fracture of lower end of right radius, initial encounter for closed fracture (principal); N17.9 Acute kidney failure, unspecified; I42.2 Other hypertrophic cardiomyopathy; W19.XXXA Unspecified fall, initial encounter; D61.818 Other pancytopenia; E78.5 Hyperlipidemia, unspecified; G89.29 Other chronic pain; I95.89 Other hypotension; I13.10 Hypertensive heart and chronic kidney disease without heart failure, with stage 1 through stage 4 chronic kidney disease, or unspecified chronic kidney disease; I25.2 Old myocardial infarction; I95.9 Hypotension, unspecified; I48.0 Paroxysmal atrial fibrillation; I25.10 Atherosclerotic heart disease of native coronary artery without angina pectoris; K21.9 Gastro-esophageal reflux disease without esophagitis; M81.0 Age-related osteoporosis without current pathological fracture; M48.061 Spinal stenosis, lumbar region without neurogenic claudication; N18.31 Chronic kidney disease, stage 3a; R26.89 Other abnormalities of gait and mobility; Z98.41 Cataract extraction status, right eye; Z95.1 Presence of aortocoronary bypass graft; Z90.49 Acquired absence of other specified parts of digestive tract; Z86.718 Personal history of other venous thrombosis and embolism; Z96.651 Presence of right artificial knee joint; Z98.42 Cataract extraction status, left eye; Z96.1 Presence of intraocular lens; Z79.01 Long term (current) use of anticoagulants
CPT/HCPCS: 25605; 36415; 70450; 71045; 71250; 72125; 73090; 73100; 73562; 76775; 80048; 80053; 80069; 81001; 82533; 82607; 82728; 82746; 82948; 83540; 83550; 83735; 83880; 84443; 85025; 85027; 85055; 87086; 87088; 93005; 96361; 96374; 96375; 97110; 97161; 97165; 97530; 97535; 99285; A4565; A9270; G0378; J2270; J2405; J3010; J3475; J7030

== ENCOUNTER 2023-02-11 09:01 | Inpatient (IN) | payer OTHER, MEDICAID, SELFPAY ==
[2023-02-11] VITALS (27 sets, daily range): BP systolic 84–147; BP diastolic 53–107; PULSE 86–152; RESP 14–21; TEMP 36.2–36.8; O2SAT 93–100
--- NOTE | ~2023-02-11 | XR_ITS ---
Clinical Indication: Fever AP and lateral views of the chest: Comparison: 02/15/2023 at 12:47 AM Findings: The lungs are clear, without evidence of focal consolidation or pleural effusion. Cardiome diastinal silhouette is stable, status post CABG. There is compression fracture of what is probably T 11 or T12. Impression: Clear lungs. Compression fracture at the lower thoracic spine. Reviewed, dictated and finalized at [facility]. Impression: Clear lungs. Compression fracture at the lower thoracic spine.
--- NOTE | ~2023-02-11 | XR_ITS ---
EXAMINATION: XR chest port-a-cath/central INDICATION: Shortness of breath TECHNIQUE: Portable AP chest at 2228 hours COMPARISON: 1010 hours FINDINGS: A few scattered nodular opacities are seen in the lungs, consistent with multifocal pneumon ia. Cardiomegaly is noted. There are small pleural effusions. No pneumothorax is identified. Median s ternotomy wires and mediastinal surgical clips are seen, likely from prior coronary artery bypass gra fting. IMPRESSION: 1. Multifocal pneumonia. Reviewed, dictated and finalized at location A. IMPRESSION: 1. Multifocal pneumonia.
--- NOTE | ~2023-02-11 | XR_ITS ---
Portable chest x-ray Comparison: 02/01/2023 Clinical History: Shortness of breath Findings: Lungs are clear, without focal consolidation or pleural effusion. Cardiomediastinal silho uette is stable. Bones and soft tissues are unremarkable. Impression: Clear lungs. Reviewed, dictated and finalized at location . Impression: Clear lungs.
--- NOTE | ~2023-02-11 | XR_ITS ---
EXAMINATION: XR chest 1V portable INDICATION: Fever TECHNIQUE: Portable AP chest at 0047 hours COMPARISON: 01/22/2023 FINDINGS: Cardiomegaly is noted. The lungs are free of acute opacities. No pleural effusion or pneumo thorax. Median sternotomy wires and mediastinal surgical clips are seen, likely from prior coronary a rtery bypass grafting. IMPRESSION: 1. Cardiomegaly. Reviewed, dictated and finalized at location A. IMPRESSION: 1. Cardiomegaly.
--- NOTE | ~2023-02-11 | CT_ITS ---
EXAMINATION: CT chest abdomen pelvis wo con DATE: 02/15/2023 13:08 INDICATION: Sepsis TECHNIQUE: Transaxial computed tomographic images of the chest, abdomen, and pelvis were obtained wit hout intravenous contrast. The dose-length product (DLP) was 1320.41 mGy-cm. Automated exposure contr ol and iterative reconstruction technique were employed. COMPARISON: 02/02/2023 FINDINGS: CHEST CT: Respiratory motion artifact mildly limits the examination. There are multifocal areas of new nodular airspace opacities throughout the lungs, predominantly in the upper lobes. Cardiomegaly is noted. The re are small pleural effusions. No pneumothorax is identified. There are changes of coronary artery b ypass grafting. There are no pathologically enlarged thoracic lymph nodes. There is a chronic burst f racture of T11. ABDOMEN/PELVIS CT: Changes of cholecystectomy are noted. The liver, spleen, pancreas, and right adrenal gland are normal . There is a 3.7 cm mixed fat and soft tissue attenuation mass of the left adrenal gland, consistent with a myelolipoma. Cysts of the left kidney measure up to 4.4 cm. The right kidney is unremarkable. There is calcified atherosclerosis of the aorta and many of the other arteries. No pathologically enl arged abdominal or pelvic lymph nodes are identified. No free intraperitoneal gas or evidence of irwin l obstruction. The appendix is normal. There are multiple small ventral hernias containing fat. There is severe lumbar spondylosis. There is advanced osteoarthritis of the right hip. IMPRESSION: 1. Multifocal pneumonia. 2. No acute findings in the abdomen or pelvis. 3. Small pleural effusions. Reviewed, dictated and finalized at location A.
--- NOTE | 2023-02-11 09:06 | ECG_ITS ---
Measurements Intervals [place] Rate: 138 P: [place]: 0 QRS: 19 QRSD: 93 T: 191 QT: 322 QTc: 489 Interpretive Statements ATRIAL FIBRILLATION WITH RAPID VENTRICULAR RESPONSE WITH ABERRANT CONDUCTION OR VENTRICULAR PREMATURE COMPLEXES NONSPECIFIC ST AND T-WAVE ABNORMALITY ABNORMAL ECG COMPARED TO ECG 02/04/2023 16:41:31 RECURRENT ATRIAL FIB REPLACES SINUS BRADYCARDIA Electronically Signed On 02-11-2023 12:13:39 CDT by Reddy Monahan M.D.
[2023-02-11 09:48] LABS: Basophils Percent Auto 0.6 % (0.2-1.2); Eosinophils Absolute Auto 0.3 K/mm3 (0-0.3); Eosinophils Percent Auto 3.9 % (0-4.4); Hematocrit 30.9 % (37.0-47.0); Hemoglobin 9.9 g/dL (12.0-15.0); Immature Granulocyte Absolute 0.02 K/mm3 (0.00-0.031); Immature Granulocyte Percent A 0.3 % (0-0.5); Lymphocytes Percent Auto 17.2 % (18.3-44.2); Mean Corpuscular Hemoglobin 30.3 pg (26-34); Mean Corpuscular Volume 94.5 fl (80-100); Mean Platelet Volume 11.2 fl (7.4-10.4); Monocytes Absolute Auto 0.8 K/mm3 (0.1-0.6); Neutrophils Absolute Auto 4.6 K/mm3 (1.3-6.7); Platelet Count Result 219 k/mm3 (150-375); Red Blood Count 3.27 M/mm3 (4.2-5.4); Red Cell Distribution Width 12.5 % (11.5-14.5)
[2023-02-11] MEDS: SODIUM CHLORIDE 0.9% IV 500 ML 999 ML IV CONT (09:49)
[2023-02-11 09:58] LABS: Alanine Aminotransferase 18 U/L (6-35); Albumin Level 3.8 g/dL (3.5-5.1); Alkaline Phosphatase 93 U/L (38-126); Anion Gap 11 mmol/L (8-16); Aspartate Amino Transferase 31 U/L (14-36); Bilirubin,Total 0.9 mg/dL (0.2-1.3); Blood Urea Nitrogen 27 mg/dL (7-17); Calcium 9.3 mg/dL (8.4-10.2); Carbon Dioxide 19 mmol/L (22-30); Chloride 107 mmol/L (98-107); Estimated CRCL calculation 38 ml/min; Estimated Glomerular Filt Rate 44; Glucose 115 mg/dL (65-110); Lipase 306 U/L (23-300); Magnesium 1.8 mg/dL (1.6-2.3); Potassium 4.1 mmol/L (3.4-5.0); Sodium 137 mmol/L (137-145)
[2023-02-11 10:03] LABS: Prothrombin Time 23.7 Seconds (11.1-14.7)
[2023-02-11 10:04] LABS: Partial Thromboplastin Time 56.3 SECONDS (22.3-36.8)
[2023-02-11 10:11] LABS: NT Pro B Type Natriuretic Pept 6750 pg/mL (19.9-100); Troponin I 0.042 ng/mL (0.000-0.034)
--- NOTE | 2023-02-11 10:32 | ED.ARRPALP ---
HPI - Arrhythmia/Palpitations General Chief Complaint: Arrhythmia/Palpitations <Ioana Zimmer MD - Last Filed: 02/11/23 22:06> Stated Complaint: dizziness, afb RVR <Ioana Zimmer MD - Last Filed: 02/11/23 22:06> Time Seen by Provider: 02/11/23 09:15 <Ioana Zimmer MD - Last Filed: 02/11/23 22:06> Source: patient, EMS, RN notes reviewed and old records reviewed <Ioana Zimmer MD - Last Filed: 02/11/23 22:06> Mode of arrival: EMS <Ioana Zimmer MD - Last Filed: 02/11/23 22:06> History of Present Illness HPI narrative: This is a 77 year old female with history of atrial fibrillation, hyperlipidemia, DM who presents for evaluation of dizziness. Patient states she was sitting down and she started to feel lightheaded so she called her nurse. She states her nurse found that her blood pressure was low so she was sent to ER. She was discharged from [facility] 5 days ago after treatment of right radial fracture and afib. She failed cardioversion during her last hospitalization and she was placed on sotalol 40 mg BID. She took her morning dose. She denies chest pain, shortness of breath, nasuea, vomiting. She is on Eliquis 5 mg BID for anticoagulation. <Ioana Zimmer MD - Last Filed: 02/11/23 22:06> Related Data Home Medications: Home Medications Medication Instructions Recorded Confirmed acetaminophen 500 mg tablet 1,000 mg PO Q6H PRN Pain (Scale 04/02/22 02/01/23 (Tylenol Extra Strength) Score 1-3) omeprazole 20 mg capsule,delayed 20 mg PO HS 04/10/22 02/02/23 release apixaban 5 mg tablet 5 mg PO BID 01/14/23 02/02/23 gabapentin 600 mg tablet 600 mg PO QID 02/02/23 02/02/23 ondansetron HCl 4 mg tablet 4 mg PO Q4H PRN Nausea And Vomiting 02/02/23 02/02/23 <Ioana Zimmer MD - Last Filed: 02/11/23 22:06> Allergies/Adverse Reactions: Allergies Allergy/AdvReac Type Severity Reaction Status Date / Time codeine Allergy Unknown Anaphylaxis Verified 02/02/23 00:04 Latex, Natural Rubber Allergy Unknown SKIN Verified 02/02/23 00:04 IRRITATION nitroglycerin AdvReac Severe Hypotension Verified 02/02/23 00:04 tramadol AdvReac Mild Nausea and Verified 02/02/23 00:04 Vomiting, HEADACHE, DIZZINESS <Ioana Zimmer MD - Last Filed: 02/11/23 22:06> Review of Systems Constitutional: Constitutional: Denies weakness <Ioana Zimmer MD - Last Filed: 02/11/23 22:06> Cardiovascular: Cardiovascular: Reports chest pain, Denies syncope, Denies rapid heart rate, Denies irregular heart rhythm, Denies leg edema and Denies dyspnea <Ioana Zimmer MD - Last Filed: 02/11/23 22:06> Respiratory: Respiratory: Denies chest congestion, Denies hemoptysis, Denies excessive phlegm production and Denies dyspnea <Ioana Zimmer MD - Last Filed: 02/11/23 22:06> Gastrointestinal: Gastrointestinal: Denies abdominal pain, Denies hematochezia, Denies diarrhea and Denies vomiting <Ioana Zimmer MD - Last Filed: 02/11/23 22:06> Genitourinary: Genitourinary: Denies hematuria and Denies dysuria <Ioana Zimmer MD - Last Filed: 02/11/23 22:06> Musculoskeletal: Musculoskeletal: Reports myalgias, Reports arthralgias, Denies joint swelling, Denies loss of height and Denies muscle weakness <Ioana Zimmer MD - Last Filed: 02/11/23 22:06> Neurologic: Denies syncope, Denies focal weakness and Denies weakness <Ioana Zimmer MD - Last Filed: 02/11/23 22:06> [facility] Past Medical History Medical History: Medical History (Updated 02/11/23 @ 20:29 by Mundo Clements MD) Atherosclerotic heart disease of [place] coronary artery without angina pectoris Benign positional vertigo Cardiorenal syndrome with renal failure Chronic idiopathic constipation Chronic kidney disease, stage 3a Chronic lower back pain Compression fracture of thoracic spine, non-traumatic T11 2018 Diverticulitis With history of perforation DVT (deep venous throm
[2023-02-11] MEDS: dilTIAZem HCl INJ 25 MG/5 ML VIAL 10 MG IV PUSH (10:36)
[2023-02-11] MEDS: MAGNESIUM SULF 2 GM/WATER 50ML 2 GM/50 ML BAG IVPB (10:49)
[2023-02-11] MEDS: dilTIAZem 100 MG/100 ML 100 MG/100 ML BAG IV CONT (11:40)
[2023-02-11 12:56] LABS: Troponin I 0.039 ng/mL (0.000-0.034)
[2023-02-11] MEDS: GABAPENTIN 300 MG CAPSULE 600 MG PO (19:07)
[2023-02-11] MEDS: APIXABAN 5 MG TABLET PO (21:29)
--- NOTE | 2023-02-11 22:50 | ADMGEN ---
This patient, Tiera Lobato, was admitted to IMU Room 200-01. Patient/family oriented to hospital policies and general routines including ID bracelet, bed and alarms, visiting hours, pain management, procedures, bathroom and other care routines, personal items, smoking policy, room service/diet, and visiting hours. Information on how to activate the Rapid Response Team has been discussed. Patient/Family are encouraged to report perceived risks to care and to ask questions if they do not understand what they are told or what they should do.
[2023-02-11] MEDS: dilTIAZem 100 MG/100 ML 100 MG/100 ML BAG 10 MG IV CONT (22:56)
--- NOTE | 2023-02-11 23:12 | PM.IMHP ---
H&P: HPI History of Present Illness Date/Time: 02/11/23 23:12 Chief Complaint: Patient sent to the ER for evaluation due to dizziness, lightheadedness and palpitations Narrative: She is an unfortunate lady who recently had right radial fracture, was admitted in the hospital and had AFib. She failed cardioversion and was placed on sotalol 40 mg b.i.d and started on Eliquis for anticoagulation. She was sent home from the hospital. While she was at home today, she started getting lightheaded, dizzy and had palpitations. Her blood pressure was low as checked by her nurse. She was sent to the ER for evaluation. Workup was done which showed AFib with RVR. She was started on IV Cardizem drip after giving IV Cardizem bolus. She is now slowly getting back to baseline. She is being placed under observation for tele-monitoring, close observation and cardiology evaluation. Review of Systems Review of Systems: All systems reviewed & are unremarkable except as noted in HPI and below PMFSH Past Medical History Medical History Atherosclerotic heart disease of [place] coronary artery without angina pectoris Benign positional vertigo Cardiorenal syndrome with renal failure Chronic idiopathic constipation Chronic kidney disease, stage 3a Chronic lower back pain Compression fracture of thoracic spine, non-traumatic T11 2018 Diverticulitis With history of perforation DVT (deep venous thrombosis) Distant past Gastro-esophageal reflux disease without esophagitis Hyperlipidemia Hypertrophic cardiomyopathy Apical variant noted on cardiac MRI 08/22/2022 Intra-articular fracture of distal end of right radius with volar angulation Close reduction January 2023 Lumbar spinal stenosis Occlusion and stenosis of bilateral carotid arteries Osteoporosis Pancreatic cyst Paroxysmal A-fib With synchronized cardioversion 01/24/2023 Surgical History Surgical History History of bowel resection (~1992) Due to prior bowel perforation History of cholecystectomy History of lumbar surgery (~1998) Lumbar diskectomy History of total right knee replacement (~2017) S/P CABG x 2 (2012) LAWSON to LAD and saphenous vein graft to obtuse marginal Status post cataract extraction of both eyes with insertion of intraocular lens Family History Family History Father Malignant neoplasm of prostate Mother Alzheimer's dementia Sibling Alzheimer's dementia Social History Social History Social History: Patient lives in [facility]. She ambulates with a walker. She has 3 sons. And 4 grandchildren.. She denies having a pet. She was and her last Jul 2020 from recurrent polio infection and acute brain bleed. Code status: The patient initially stated she wanted be a DNR DNI. However her son stated that he wanted to give her every chance for recovery that is possible. After discussion of risks and benefits the son still requests the patient be a full code. The patient verbalized that she would not want to be on a ventilator long-term and would not want a tracheostomy are PEG. She reports that she wants all 3 of her sons to share in the decision making process if she were unable to make her own decisions. Smoking status: Never smoker Second hand tobacco smoke exposure: Yes Alcohol intake: never Substance use: never Substance use type: does not use Last use: 01/24/2023 Lack of Transportation: No Lack of Food: Never True Current Housing: I Have Housing Concerned About Future Housing: No Difficulty Paying Gas/Electric Bills: No Difficulty Paying for Meds: No Currently Unemployed: No Education: High School Diploma/GED Difficulty w/ Childcare or Family Care: No Living arrangements: assisted living
[2023-02-12] VITALS (15 sets, daily range): BP systolic 103–162; BP diastolic 55–74; PULSE 65–130; RESP 16–18; TEMP 35.7–36.6; O2SAT 98–100; BMI 31.1
[2023-02-12 05:21] LABS: NT Pro B Type Natriuretic Pept 3840 pg/mL (19.9-100)
[2023-02-12] MEDS: ALENDRONATE SODIUM 70 MG TABLET PO (05:43)
[2023-02-12] MEDS: ACETAMINOPHEN 500 MG TABLET 1000 MG PO (08:20)
[2023-02-12] MEDS: SERTRALINE HCL 50 MG TABLET PO (08:21)
[2023-02-12] MEDS: GABAPENTIN 300 MG CAPSULE 600 MG PO ×4 (08:21→20:11)
[2023-02-12] MEDS: APIXABAN 5 MG TABLET PO ×2 (08:21→17:12)
[2023-02-12] MEDS: dilTIAZem 100 MG/100 ML 100 MG/100 ML BAG 15 MG IV CONT (08:22)
[2023-02-12] MEDS: ATORVASTATIN 40 MG TABLET 80 MG PO (08:22)
[2023-02-12] MEDS: EZETIMIBE 10 MG TABLET PO (08:22)
--- NOTE | 2023-02-12 08:30 | PM.IMPN ---
Progress Note: A&P Assessment and Plan (1) Atrial fibrillation with rapid ventricular response: Code(s): I48.91 - Unspecified atrial fibrillation Status: Acute Assessment and Plan: Patient is on Cardizem drip. Heart rate is better controlled now. Will continue current treatment. Waiting for Cardiology consult. (2) Chronic kidney disease, stage 3a: Code(s): N18.31 - Chronic kidney disease, stage 3a Status: Acute Assessment and Plan: Stable, continue current treatment. (3) Intra-articular fracture of distal end of right radius with volar angulation: Qualifiers: Encounter type: initial encounter Qualified Code(s): S52.571A - Other intraarticular fracture of lower end of right radius, initial encounter for closed fracture Code(s): S52.571A - Other intraarticular fracture of lower end of right radius, initial encounter for closed fracture Status: Acute Assessment and Plan: Willing splint, continue current treatment. Pain control. (4) Hypertrophic cardiomyopathy: Code(s): I42.2 - Other hypertrophic cardiomyopathy Status: Acute Assessment and Plan: Stable, continue current treatment. (5) Old myocardial infarction: Onset Date: ~2012 Code(s): I25.2 - Old myocardial infarction Status: Acute Assessment and Plan: Stable, continue current treatment. (6) Aortic atherosclerosis: Onset Date: ~2006 Code(s): I70.0 - Atherosclerosis of aorta Status: Acute Assessment and Plan: Stable, continue current treatment. (7) Peripheral vascular disease, unspecified: Code(s): I73.9 - Peripheral vascular disease, unspecified Status: Acute Assessment and Plan: Stable, continue current treatment. (8) Pure hypercholesterolemia, unspecified: Code(s): E78.00 - Pure hypercholesterolemia, unspecified Status: Acute Assessment and Plan: Stable, continue current treatment. (9) Anemia: Qualifiers: Anemia type: unspecified type Qualified Code(s): D64.9 - Anemia, unspecified Code(s): D64.9 - Anemia, unspecified Status: Acute Assessment and Plan: Stable, continue current treatment. Plan Place patient under observation status Continue cardiac tele monitoring Patient given IV Cardizem loading dose of 10 mcg in the ER Patient started on IV Cardizem drip at 10 mics per hour Titrate IV Cardizem to keep heart rate of 100 Code status full Patient is on Eliquis for DVT prophylaxis. Subjective Date/time seen: 02/12/23 08:30 Interval history: Patient was seen during the morning rounds today. Patient is feeling slightly better. No chest pain. No shortness of breath. No abdominal pain, nausea, no vomiting. Mood stable. Review of Systems Review of Systems: All systems reviewed & are unremarkable except as noted in HPI and below Exam Narrative: PHYSICAL EXAMINATION: Vital signs: Please see the chart. General physical exam: Well-developed, well-nourished, in no acute distress. Head/eyes: Atraumatic, EOMI, PERRLA. ENT: Moist mucous membranes, nasal passages clear. Neck: Supple, full range of motion, trachea midline. CVS: S1 + S2, irregularly irregular rate and rhythm, no murmurs Respiratory: Bilaterally decreased air entry in both lung burch, mild B/L crackles, symmetric chest expansion, no distress Abdomen: Soft, non-tender, bowel sounds +ve, no organomegaly Extremities: No clubbing, no cyanosis, no edema, no calf tenderness. Wearing right forearm splint. Musculoskeletal: Moves all, adequate range of motion, no muscle spasms Skin: Warm, dry, no jaundice, no cyanosis Neurological: Awake, alert, oriented x 3, cranial nerves II-XII intact, no focal neurological deficits Psychiatric: Normal mood, non suicidal Objective Data Vital Signs Vital Signs: Vital Signs - 24 hr 02/11/23 09:03 02/11/23 11:03 02/11/23 09:45 Temperature 36
--- NOTE | 2023-02-12 09:40 | PC.NURSE ---
Spoke with Dr. Carbajal regarding consult. New order to cancel consult. I've been seeing the pt and will continue to follow her, but there is no need for a consult.
--- NOTE | 2023-02-12 11:42 | PM.CNCAR ---
Assessment and Plan Assessment and plan (1) Atrial fibrillation with rapid ventricular response: Code(s): I48.91 - Unspecified atrial fibrillation Status: Acute Plan This is a 77-year-old lady with coronary disease, surgical revascularization back in 2014 she also has hypertrophic cardiomyopathy/apical variant and now has paroxysmal atrial fibrillation primarily symptomatic with lightheadedness. Despite sotalol treatment she is back in atrial fibrillation within less than 2 weeks. She is well rate controlled now with IV diltiazem and is asymptomatic essentially. I am going to transition her to oral diltiazem at a higher dose since she takes quite a bit of IV diltiazem to provide rate control we will hopefully be able then to discharge her in rate controlled atrial fibrillation and she can either except that or follow-up with her physician at [place] and consider more aggressive attempts at providing rhythm control. Reddy Monahan MD [facility] History of Present Illness History of Present Illness Consult date/time: 02/12/23 11:42 Reason For Visit: Atrial Fibrillation with Rapid Ventricular Respons Narrative: This is a 77-year-old woman with a history of coronary artery disease, left ventricular apical hypertrophy as well as atrial fibrillation I am seeing at the request of the hospitalist today for assistance with the management of recurrent atrial fib. The patient is followed by cardiologists in at [facility] in the [facility] group. She underwent bypass grafting back in 2014 at [facility] with following an on X unsuccessful attempt at percutaneous revascularization. She has done well with respect to her coronary disease. Apparently according to the notes she is also known to have hypertrophic cardiomyopathy/apical variant with apical hypertrophy. Earlier this summer when she was in the office of her office associate she was found on exam to be in atrial fibrillation. She was anticoagulated with apixaban and subsequently DC cardioverted to sinus rhythm in the early part of this month at [facility]. She came to [facility] on 02/02/2023 I saw her in consultation because of recurrent symptomatic atrial fib with lightheadedness. She was not really aware of tachycardia or palpitations per se. I treated her with sotalol medical antiarrhythmic therapy and interestingly after the 2nd dose she converted medically back to sinus rhythm. Her blood pressure was a little bit low so she or the dosage was reduced to 40 mg q.12 hours and she was discharged home with plans for follow-up with her office associate at [place]. She was sent back to this hospital yesterday evening when she was complaining of lightheadedness and it was noticed that she was again back in atrial fibrillation. In the emergency room here there was an attempt to contact her physician at [place] to have her admitted at that hospital for further strategy for AFib management. They did not have capacity to accept the patient so she was admitted here again. She is currently receiving intravenous diltiazem at 15 milligram/hour and she is well rate controlled and asymptomatic. Echocardiograms that have been done in the office and in the hospital recently have demonstrated very good left ventricular systolic function. Review of Systems Constitutional: Constitutional: Reports no additional constitutional complaints Eyes: Eyes: Reports no additional eye complaints ENT: Reports system reviewed and no additional complaints, except as documented Cardiovascular: Cardiovascular: Reports as per HPI and Reports lightheadedness Respiratory: Respiratory: Reports no additional respiratory complaints Gastrointestinal: Gastrointestinal: Reports no additional gastrointestinal complaints Musculoskeletal: Musculoskeletal: Reports no additional musculoskeletal complaints Integumentary/Breasts: Skin/Breast: Reports system reviewed and no additional complaints, except a
[2023-02-12] MEDS: dilTIAZem HCL CD 240 MG CAP.24HR PO (13:01)
--- NOTE | 2023-02-12 17:50 | PC.NURSE ---
On 02/12/23, the student, Mariam [facility], provided care and completed [facility] documentation on this patient. I have reviewed the student's documentation and agree with the findings.
[2023-02-12] MEDS: PANTOPRAZOLE 40 MG TABLET PO (20:12)
[2023-02-13] VITALS (15 sets, daily range): BP systolic 97–120; BP diastolic 56–72; PULSE 68–133; RESP 16–18; TEMP 35.8–36.6; O2SAT 94–100
[2023-02-13 04:55] LABS: Basophils Percent Auto 0.7 % (0.2-1.2); Eosinophils Absolute Auto 0.3 K/mm3 (0-0.3); Eosinophils Percent Auto 4.8 % (0-4.4); Hematocrit 27.9 % (37.0-47.0); Hemoglobin 8.9 g/dL (12.0-15.0); Immature Granulocyte Absolute 0.01 K/mm3 (0.00-0.031); Immature Granulocyte Percent A 0.2 % (0-0.5); Lymphocytes Absolute Auto 1.54 K/mm3 (0.9-3.2); Lymphocytes Percent Auto 28.2 % (18.3-44.2); Mean Corpuscular HGB Conc 31.9 g/dl (32-36); Mean Corpuscular Hemoglobin 30.7 pg (26-34); Mean Corpuscular Volume 96.2 fl (80-100); Mean Platelet Volume 11.2 fl (7.4-10.4); Monocytes Absolute Auto 0.6 K/mm3 (0.1-0.6); Monocytes Percent Auto 11.2 % (2.6-8.5); Neutrophils Percent Auto 54.9 % (45.5-73.1); Platelet Count Result 218 k/mm3 (150-375); Red Cell Distribution Width 12.6 % (11.5-14.5); White Blood Count 5.5 K/mm3 (4.5-10.0)
[2023-02-13 05:05] LABS: Alanine Aminotransferase 15 U/L (6-35); Albumin Level 3.3 g/dL (3.5-5.1); Alkaline Phosphatase 99 U/L (38-126); Anion Gap 8 mmol/L (8-16); Aspartate Amino Transferase 25 U/L (14-36); Bilirubin,Total 0.7 mg/dL (0.2-1.3); Blood Urea Nitrogen 20 mg/dL (7-17); Calcium 8.8 mg/dL (8.4-10.2); Carbon Dioxide 20 mmol/L (22-30); Chloride 110 mmol/L (98-107); Estimated CRCL calculation 41 ml/min; Estimated Glomerular Filt Rate 48; Glucose 100 mg/dL (65-110); Potassium 4.3 mmol/L (3.4-5.0); Sodium 138 mmol/L (137-145)
--- NOTE | 2023-02-13 09:43 | PM.IMPN ---
Progress Note: A&P Assessment and Plan (1) Atrial fibrillation with rapid ventricular response: Code(s): I48.91 - Unspecified atrial fibrillation Status: Acute Assessment and Plan: Patient is on Cardizem drip. Heart rate is better controlled now. Will continue current treatment. Waiting for Cardiology consult. (2) Chronic kidney disease, stage 3a: Code(s): N18.31 - Chronic kidney disease, stage 3a Status: Acute Assessment and Plan: Stable, continue current treatment. (3) Intra-articular fracture of distal end of right radius with volar angulation: Qualifiers: Encounter type: initial encounter Qualified Code(s): S52.571A - Other intraarticular fracture of lower end of right radius, initial encounter for closed fracture Code(s): S52.571A - Other intraarticular fracture of lower end of right radius, initial encounter for closed fracture Status: Acute Assessment and Plan: Willing splint, continue current treatment. Pain control. (4) Hypertrophic cardiomyopathy: Code(s): I42.2 - Other hypertrophic cardiomyopathy Status: Acute Assessment and Plan: Stable, continue current treatment. (5) Old myocardial infarction: Onset Date: ~2012 Code(s): I25.2 - Old myocardial infarction Status: Acute Assessment and Plan: Stable, continue current treatment. (6) Aortic atherosclerosis: Onset Date: ~2006 Code(s): I70.0 - Atherosclerosis of aorta Status: Acute Assessment and Plan: Stable, continue current treatment. (7) Peripheral vascular disease, unspecified: Code(s): I73.9 - Peripheral vascular disease, unspecified Status: Acute Assessment and Plan: Stable, continue current treatment. (8) Pure hypercholesterolemia, unspecified: Code(s): E78.00 - Pure hypercholesterolemia, unspecified Status: Acute Assessment and Plan: Stable, continue current treatment. (9) Anemia: Qualifiers: Anemia type: unspecified type Qualified Code(s): D64.9 - Anemia, unspecified Code(s): D64.9 - Anemia, unspecified Status: Acute Assessment and Plan: Hemoglobin stable, No obvious bleeding continue current treatment. Plan Place patient under observation status Continue cardiac tele monitoring Patient given IV Cardizem loading dose of 10 mcg in the ER Patient started on IV Cardizem drip at 10 mics per hour Titrate IV Cardizem to keep heart rate of 100 Switch to Cardizem 360 mg daily p.o. per gum puller However heart rate fluctuate pump from 110-1 to 85 Continue Eliquis 5 mg b.i.d. p.o. Code status full Patient is on Eliquis for DVT prophylaxis. Subjective Date/time seen: 02/13/23 09:43 Interval history: I saw exam patient today. Patient feels better, denies chest pain, lightheadedness. Heart rate fluctuated from 110-145 Exam Narrative: PHYSICAL EXAMINATION: Vital signs: Please see the chart. General physical exam: Well-developed, well-nourished, in no acute distress. Head/eyes: Atraumatic, EOMI, PERRLA. ENT: Moist mucous membranes, nasal passages clear. Neck: Supple, full range of motion, trachea midline. CVS: S1 + S2, irregularly irregular rate and rhythm, no murmurs Respiratory: Bilaterally decreased air entry in both lung burch, mild B/L crackles, symmetric chest expansion, no distress Abdomen: Soft, non-tender, bowel sounds +ve, no organomegaly Extremities: No clubbing, no cyanosis, no edema, no calf tenderness. Wearing right forearm splint. Musculoskeletal: Moves all, adequate range of motion, no muscle spasms Skin: Warm, dry, no jaundice, no cyanosis Neurological: Awake, alert, oriented x 3, cranial nerves II-XII intact, no focal neurological deficits Psychiatric: Normal mood, non suicidal Objective Data Vital Signs Vital Signs: Vital Signs - 24 hr 02/12/23 10:00 02/12/23 11:31 02/12/23 12:00 Temperature 9
[2023-02-13] MEDS: APIXABAN 5 MG TABLET PO ×2 (09:50→17:43)
[2023-02-13] MEDS: dilTIAZem HCL CD 240 MG CAP.24HR PO (09:51)
[2023-02-13] MEDS: ATORVASTATIN 40 MG TABLET 80 MG PO (09:51)
[2023-02-13] MEDS: GABAPENTIN 300 MG CAPSULE 600 MG PO ×4 (09:51→20:26)
[2023-02-13] MEDS: EZETIMIBE 10 MG TABLET PO (09:51)
[2023-02-13] MEDS: SERTRALINE HCL 50 MG TABLET PO (09:51)
[2023-02-13] MEDS: dilTIAZem HCL 30 MG TABLET PO (13:14)
--- NOTE | 2023-02-13 14:30 | PM.PNCARD ---
Progress Note: A&P Assessment and Plan (1) Atrial fibrillation with rapid ventricular response: Code(s): I48.91 - Unspecified atrial fibrillation Status: Acute Plan This is a 77-year-old lady with coronary disease, surgical revascularization back in 2014 she also has hypertrophic cardiomyopathy/apical variant and now has paroxysmal atrial fibrillation primarily symptomatic with lightheadedness. Despite sotalol treatment she is back in atrial fibrillation within less than 2 weeks. Pursuing rate control strategy with diltiazem Not adequately controlled on current dose, will give an additional 30mg diltiazem this afternoon and increase tomorrow's dose to 360mg. Hopefully her dizziness will subside with better rate control follow-up with her physician at [place] to consider more aggressive attempts at providing rhythm control. Subjective Date/time seen: 02/13/23 14:30 Interval history: Cardiology follow up for atrial fibrillation She continues to feel dizzy. Feels palpitations occasionally. No chest pain or shortness of breath. Review of Systems Constitutional: Constitutional: Reports no additional constitutional complaints Eyes: Eyes: Reports no additional eye complaints ENT: Reports system reviewed and no additional complaints, except as documented Cardiovascular: Cardiovascular: Reports as per HPI and Reports lightheadedness Respiratory: Respiratory: Reports no additional respiratory complaints Gastrointestinal: Gastrointestinal: Reports no additional gastrointestinal complaints Musculoskeletal: Musculoskeletal: Reports no additional musculoskeletal complaints Integumentary/Breasts: Skin/Breast: Reports system reviewed and no additional complaints, except as docu Neurologic: Reports system reviewed and no additional complaints, except as documented Endocrine: Endocrine: Reports no additional endocrine complaints Hematologic/Lymphatic: Hematologic/Lymphatic: Reports no additional hematologic/lymphatic complaints Allergic/Immunologic: Allergic/Immunologic: Reports no additional allergic/immunologic complaints Exam Const: General: comfortable and no acute distress Other: Pleasant elderly lady lying comfortably in bed HENMT: Mouth: Yes moist mucous membranes Eyes: Sclera: sclerae normal Neck: Neck: supple and no JVD Other: Carotid pulses are normal bilaterally Resp: Effort & Inspection: normal respiratory effort Auscultation: clear to auscultation bilaterally, no crackles, no rales and no wheezes Cardio: Rate: tachycardic Rhythm: abnormal rhythm irregularly irregular GI: Auscultation: normal bowel sounds Skin: General skin exam: normal color Neuro: Other: Alert and oriented x3 Extrem: Other: Normal perfusion, no edema Objective Data Vital Signs Vital Signs: Vital Signs - 24 hr 02/12/23 16:00 02/12/23 16:00 02/12/23 18:00 Temperature 36.2 C L Pulse Rate 78 90 80 Respiratory Rate 18 Blood Pressure 113/55 L Pulse Oximetry 98 Oxygen Delivery 02/12/23 16:00 02/12/23 20:00 02/12/23 20:00 Temperature 36.4 C Pulse Rate 68 92 Respiratory Rate 18 Blood Pressure 103/55 L Pulse Oximetry 98 Oxygen Delivery Room Air 02/12/23 20:00 02/12/23 21:31 02/13/23 00:00 Temperature 36.6 C Pulse Rate 92 98 108 H Respiratory Rate 18 18 Blood Pressure 97/62 L Pulse Oximetry 98 100 Oxygen Delivery Room Air 02/13/23 00:00 02/13/23 00:00 02/12/23 22:45 Temperature Pulse Rate 133 H 133 H Respiratory Rate 18 Blood Pressure Pulse Oximetry 100 99 Oxygen Delivery Room Air Room Air 02/13/23 02:00 02/13/23 04:00 02/13/23 04:00 Temperature 36.6 C Pulse Rate 102 H 104 H 87 Respiratory Rate 18 Blood Pressure 98/56 L Pulse Oximetry 94 Oxygen Delivery 02/13/23 04:00 02/13/23 06:00 02/13/23 07:41 Temperature 36.6 C Pulse Rate 87 87 71 Respiratory Rate 18 18 Blood Pressure 110/56
--- NOTE | 2023-02-13 15:58 | PC.NURSE ---
On 02/13/23, the student, Chad [facility], provided care and completed [employer] documentation on this patient. I have reviewed the student's documentation and agree with the findings.
[2023-02-13] MEDS: PANTOPRAZOLE 40 MG TABLET PO (20:29)
[2023-02-14] VITALS (19 sets, daily range): BP systolic 93–146; BP diastolic 53–106; PULSE 76–168; RESP 16–20; TEMP 35.9–39.1; O2SAT 94–100
[2023-02-14 05:53] LABS: Hematocrit 30.1 % (37.0-47.0); Hemoglobin 9.5 g/dL (12.0-15.0); Mean Corpuscular HGB Conc 31.6 g/dl (32-36); Mean Corpuscular Hemoglobin 30.5 pg (26-34); Mean Corpuscular Volume 96.8 fl (80-100); Mean Platelet Volume 12.7 fl (7.4-10.4); Platelet Count Result 253 k/mm3 (150-375); Red Blood Count 3.11 M/mm3 (4.2-5.4); Red Cell Distribution Width 12.6 % (11.5-14.5); White Blood Count 6.5 K/mm3 (4.5-10.0)
[2023-02-14 06:05] LABS: Anion Gap 5 mmol/L (8-16); Blood Urea Nitrogen 16 mg/dL (7-17); Calcium 9.2 mg/dL (8.4-10.2); Carbon Dioxide 23 mmol/L (22-30); Chloride 108 mmol/L (98-107); Estimated CRCL calculation 46 ml/min; Estimated Glomerular Filt Rate 54; Glucose 100 mg/dL (65-110); Potassium 4.7 mmol/L (3.4-5.0); Sodium 136 mmol/L (137-145)
[2023-02-14] MEDS: SERTRALINE HCL 50 MG TABLET PO (08:36)
[2023-02-14] MEDS: GABAPENTIN 300 MG CAPSULE 600 MG PO ×4 (08:36→20:46)
[2023-02-14] MEDS: APIXABAN 5 MG TABLET PO ×2 (08:37→16:38)
[2023-02-14] MEDS: EZETIMIBE 10 MG TABLET PO (08:37)
[2023-02-14] MEDS: dilTIAZem HCL CD 180 MG CAP.24HR 360 MG PO (08:37)
[2023-02-14] MEDS: ATORVASTATIN 40 MG TABLET 80 MG PO (08:37)
[2023-02-14] MEDS: ACETAMINOPHEN 500 MG TABLET 1000 MG PO ×3 (08:37→23:27)
[2023-02-14] MEDS: LIDOCAINE 5% PATCH 3 PATCH TRANSDERM (08:38)
--- NOTE | 2023-02-14 09:02 | PM.IMPN ---
Progress Note: A&P Assessment and Plan (1) Atrial fibrillation with rapid ventricular response: Code(s): I48.91 - Unspecified atrial fibrillation Status: Acute Assessment and Plan: Patient is on Cardizem drip. Heart rate is better controlled now. Will continue current treatment. Waiting for Cardiology consult. (2) Chronic kidney disease, stage 3a: Code(s): N18.31 - Chronic kidney disease, stage 3a Status: Acute Assessment and Plan: Stable, continue current treatment. (3) Intra-articular fracture of distal end of right radius with volar angulation: Qualifiers: Encounter type: initial encounter Qualified Code(s): S52.571A - Other intraarticular fracture of lower end of right radius, initial encounter for closed fracture Code(s): S52.571A - Other intraarticular fracture of lower end of right radius, initial encounter for closed fracture Status: Acute Assessment and Plan: Willing splint, continue current treatment. Pain control. (4) Hypertrophic cardiomyopathy: Code(s): I42.2 - Other hypertrophic cardiomyopathy Status: Acute Assessment and Plan: Stable, continue current treatment. (5) Old myocardial infarction: Onset Date: ~2012 Code(s): I25.2 - Old myocardial infarction Status: Acute Assessment and Plan: Stable, continue current treatment. (6) Aortic atherosclerosis: Onset Date: ~2006 Code(s): I70.0 - Atherosclerosis of aorta Status: Acute Assessment and Plan: Stable, continue current treatment. (7) Peripheral vascular disease, unspecified: Code(s): I73.9 - Peripheral vascular disease, unspecified Status: Acute Assessment and Plan: Stable, continue current treatment. (8) Pure hypercholesterolemia, unspecified: Code(s): E78.00 - Pure hypercholesterolemia, unspecified Status: Acute Assessment and Plan: Stable, continue current treatment. (9) Anemia: Qualifiers: Anemia type: unspecified type Qualified Code(s): D64.9 - Anemia, unspecified Code(s): D64.9 - Anemia, unspecified Status: Acute Assessment and Plan: Hemoglobin stable, No obvious bleeding continue current treatment. Plan Place patient under observation status Continue cardiac tele monitoring Patient given IV Cardizem loading dose of 10 mcg in the ER Patient started on IV Cardizem drip at 10 mics per hour Titrate IV Cardizem to keep heart rate of 100 Switch to Cardizem 360 mg daily p.o. per mixer slagman heart rate fluctuates from 80-145 over the night Continue Eliquis 5 mg b.i.d. p.o. Code status full Patient is on Eliquis for DVT prophylaxis. Subjective Date/time seen: 02/14/23 09:02 Interval history: I saw exam patient today. Patient feels better, denies chest pain, lightheadedness. Heart rate fluctuated from 80-145 over the night Exam Narrative: PHYSICAL EXAMINATION: Vital signs: Please see the chart. General physical exam: Well-developed, well-nourished, in no acute distress. Head/eyes: Atraumatic, EOMI, PERRLA. ENT: Moist mucous membranes, nasal passages clear. Neck: Supple, full range of motion, trachea midline. CVS: S1 + S2, irregularly irregular rate and rhythm, no murmurs Respiratory: Bilaterally decreased air entry in both lung burch, mild B/L crackles, symmetric chest expansion, no distress Abdomen: Soft, non-tender, bowel sounds +ve, no organomegaly Extremities: No clubbing, no cyanosis, no edema, no calf tenderness. Wearing right forearm splint. Musculoskeletal: Moves all, adequate range of motion, no muscle spasms Skin: Warm, dry, no jaundice, no cyanosis Neurological: Awake, alert, oriented x 3, cranial nerves II-XII intact, no focal neurological deficits Psychiatric: Normal mood, non suicidal Objective Data Vital Signs Vital Signs: Vital Signs - 24 hr 02/13/23 11:52 02/13/23 10:00 02/13/23 12:00 T
--- NOTE | 2023-02-14 09:36 | PM.PNCARD ---
Progress Note: A&P Assessment and Plan (1) Atrial fibrillation with rapid ventricular response: Code(s): I48.91 - Unspecified atrial fibrillation Status: Acute Plan This is a 77-year-old lady with coronary disease, surgical revascularization back in 2014 she also has hypertrophic cardiomyopathy/apical variant and now has paroxysmal atrial fibrillation primarily symptomatic with lightheadedness. Despite sotalol treatment she is back in atrial fibrillation within less than 2 weeks. Pursuing rate control strategy Dose increased to 360mg this morning, but she remains in RVR Will add metoprolol tartrate 25mg q8h in hopes of achieving better rate control Up titrate metoprolol as needed Monitor blood pressure closely Continue a/c with apixaban 5mg p.o. b.i.d. Follow-up with her physician at [place] to consider more aggressive attempts at providing rhythm control. Time Spent With Patient Time: Discussed plan of care with Dr. Monahan Subjective Date/time seen: 02/14/23 09:36 Interval history: Cardiology follow up for atrial fibrillation Despite increase of diltiazem dose her heart rate remains elevated, up tothe 160's-170's with activity and generally in the 120's - 140's at rest. She continues to feel dizzy and does feel palpitations intermittently. No chest pain. Review of Systems Constitutional: Constitutional: Reports no additional constitutional complaints Eyes: Eyes: Reports no additional eye complaints ENT: Reports system reviewed and no additional complaints, except as documented Cardiovascular: Cardiovascular: Reports as per HPI and Reports lightheadedness Respiratory: Respiratory: Reports no additional respiratory complaints Gastrointestinal: Gastrointestinal: Reports no additional gastrointestinal complaints Musculoskeletal: Musculoskeletal: Reports no additional musculoskeletal complaints Integumentary/Breasts: Skin/Breast: Reports system reviewed and no additional complaints, except as docu Neurologic: Reports system reviewed and no additional complaints, except as documented Endocrine: Endocrine: Reports no additional endocrine complaints Hematologic/Lymphatic: Hematologic/Lymphatic: Reports no additional hematologic/lymphatic complaints Allergic/Immunologic: Allergic/Immunologic: Reports no additional allergic/immunologic complaints Exam Const: General: comfortable and no acute distress Other: Pleasant elderly lady lying comfortably in bed HENMT: Mouth: Yes moist mucous membranes Eyes: Sclera: sclerae normal Neck: Neck: supple and no JVD Other: Carotid pulses are normal bilaterally Resp: Effort & Inspection: normal respiratory effort Auscultation: clear to auscultation bilaterally, no crackles, no rales and no wheezes Other: Good aeration clear breath sounds in both lung burch Cardio: Rate: regular rate and tachycardic Rhythm: abnormal rhythm irregularly irregular GI: Auscultation: normal bowel sounds Skin: General skin exam: normal color Neuro: Other: Alert and oriented x3 Extrem: Other: Normal perfusion, no edema Objective Data Vital Signs Vital Signs: Vital Signs - 24 hr 02/13/23 11:52 02/13/23 10:00 02/13/23 12:00 Temperature 36.4 C Pulse Rate 118 H 99 122 H Respiratory Rate 18 Blood Pressure 110/68 Pulse Oximetry 98 Oxygen Delivery 02/13/23 12:00 02/13/23 16:17 02/13/23 14:00 Temperature 35.8 C L Pulse Rate 92 111 H Respiratory Rate 16 Blood Pressure 120/64 Pulse Oximetry 98 Oxygen Delivery Room Air 02/13/23 16:00 02/13/23 18:00 02/13/23 16:00 Temperature Pulse Rate 93 101 H Respiratory Rate Blood Pressure Pulse Oximetry Oxygen Delivery Room Air 02/13/23 20:00 02/13/23 20:00 02/13/23 20:00 Temperature 36.2 C L Pulse Rate 68 113 H 113 H Respiratory Rate 16 16 Blood Pressure 107/72 Pulse Oximetry 95 95 Oxygen Delivery Room Air
[2023-02-14] MEDS: METOPROLOL TARTRATE 25 MG TABLET PO ×2 (11:50→20:46)
[2023-02-14] MEDS: PANTOPRAZOLE 40 MG TABLET PO (20:46)
[2023-02-15] VITALS (30 sets, daily range): BP systolic 62–119; BP diastolic 36–77; PULSE 98–160; RESP 2–23; TEMP 36.3–39.5; O2SAT 95–100
[2023-02-15 01:27] LABS: Influenza A QL RT-PCR Negative (Negative); Influenza B QL RT-PCR Negative (Negative); SARS-CoV-2 RNA PCR Negative (Negative)
[2023-02-15] MEDS: IBUPROFEN 400 MG TABLET PO (02:40)
[2023-02-15 02:48] LABS: Appearance Urine Clear (Clear); Bilirubin Urine 1+ (Negative); Blood Urine Negative (Negative); Color Urine Yellow (Yellow); Glucose Urine UA Negative (Negative); Ketones Urine Trace mg/dL (Negative); Leukocyte Esterase Ur 1+ LEU/UL (Negative); Nitrate Urine Negative (Negative); Protein Urine 1+ mg/dL (Negative); pH Urine 5.5 (5.0-9.0)
[2023-02-15 02:59] LABS: Add Urine Microscopic? YES
[2023-02-15 05:19] LABS: Hematocrit 29.7 % (37.0-47.0); Hemoglobin 9.5 g/dL (12.0-15.0); Mean Corpuscular Hemoglobin 30.9 pg (26-34); Mean Corpuscular Volume 96.7 fl (80-100); Mean Platelet Volume 12.3 fl (7.4-10.4); Platelet Count Result 240 k/mm3 (150-375); Red Blood Count 3.07 M/mm3 (4.2-5.4); Red Cell Distribution Width 12.7 % (11.5-14.5); White Blood Count 9.5 K/mm3 (4.5-10.0)
[2023-02-15 05:23] LABS: Anion Gap 8 mmol/L (8-16); Blood Urea Nitrogen 19 mg/dL (7-17); Calcium 8.9 mg/dL (8.4-10.2); Carbon Dioxide 23 mmol/L (22-30); Chloride 105 mmol/L (98-107); Estimated CRCL calculation 33 ml/min; Estimated Glomerular Filt Rate 37; Glucose 119 mg/dL (65-110); Potassium 4.3 mmol/L (3.4-5.0); Sodium 136 mmol/L (137-145)
[2023-02-15] MEDS: METOPROLOL TARTRATE 25 MG TABLET PO (05:40)
--- NOTE | 2023-02-15 09:32 | PM.PNCARD ---
Progress Note: A&P Assessment and Plan (1) Atrial fibrillation with rapid ventricular response: Code(s): I48.91 - Unspecified atrial fibrillation Status: Acute Plan Persistent atrial fibrillation reasonable heart rate control with combination of diltiazem and metoprolol. I will transition her to long-acting metoprolol starting this afternoon. Patient has some chest discomfort today with respiratory effort. Low-grade fever last night. Will send her for a chest x-ray this morning,? Atelectasis? She does have some right basilar rales this morning Reddy Monahan MD [facility] Subjective Date/time seen: Date of service: 02/15/23 09:32 Interval history: Cardiology follow up for atrial fibrillation Despite increase of diltiazem dose her heart rate remains elevated, up tothe 160's-170's with activity and generally in the 120's - 140's at rest. She continues to feel dizzy and does feel palpitations intermittently. No chest pain. 02/15/23: Resting in bed . Reports CP with breathing starting last night. Febrile last night HR is better with addition of Metoprolol Exam Const: General: comfortable and no acute distress Other: Pleasant elderly lady lying comfortably in bed HENMT: Mouth: Yes moist mucous membranes Eyes: Sclera: sclerae normal Neck: Neck: supple and no JVD Other: Carotid pulses are normal bilaterally Resp: Effort & Inspection: normal respiratory effort Auscultation: clear to auscultation bilaterally, no crackles, no rales and no wheezes Other: Crackles R base this AM Cardio: Rate: regular rate and tachycardic Rhythm: abnormal rhythm irregularly irregular GI: Auscultation: normal bowel sounds Skin: General skin exam: normal color Neuro: Other: Alert and oriented x3 Extrem: Other: Normal perfusion, no edema Objective Data Vital Signs Vital Signs: Vital Signs - 24 hr 02/14/23 11:13 02/14/23 11:50 02/14/23 12:09 Temperature 36.2 C L Pulse Rate 138 H 131 H Respiratory Rate 20 Blood Pressure 93/57 L Pulse Oximetry 98 Oxygen Delivery Room Air 02/14/23 10:00 02/14/23 12:00 02/14/23 12:00 Temperature Pulse Rate 129 H 102 H Respiratory Rate Blood Pressure Pulse Oximetry Oxygen Delivery Room Air 02/14/23 14:27 02/14/23 16:00 02/14/23 14:00 Temperature Pulse Rate 86 Respiratory Rate Blood Pressure Pulse Oximetry Oxygen Delivery Room Air Room Air 02/14/23 16:00 02/14/23 16:59 02/14/23 18:00 Temperature 36.2 C L Pulse Rate 89 76 106 H Respiratory Rate 18 Blood Pressure 128/61 Pulse Oximetry 96 Oxygen Delivery 02/14/23 20:00 02/14/23 20:46 02/14/23 20:00 Temperature 37.7 C H Pulse Rate 123 H 116 H 126 H Respiratory Rate 18 Blood Pressure 110/55 L Pulse Oximetry 98 Oxygen Delivery 02/14/23 22:00 02/14/23 23:27 02/14/23 23:36 Temperature 39.1 C H 38.9 C H Pulse Rate 82 83 Respiratory Rate 18 Blood Pressure 116/53 L Pulse Oximetry 100 Oxygen Delivery 02/15/23 00:00 02/15/23 00:27 02/15/23 02:00 Temperature 39.5 C H Pulse Rate 106 H 140 H Respiratory Rate Blood Pressure Pulse Oximetry Oxygen Delivery 02/15/23 02:40 02/15/23 03:52 02/15/23 04:00 Temperature 39.3 C H 36.3 C L Pulse Rate 117 H 98 Respiratory Rate 18 Blood Pressure 90/65 L Pulse Oximetry 100 Oxygen Delivery 02/15/23 05:40 02/15/23 05:40 02/15/23 06:00 Temperature Pulse Rate 132 H 119 H Respiratory Rate Blood Pressure 115/60 Pulse Oximetry Oxygen Delivery 02/15/23 08:18 Temperature 36.4 C Pulse Rate 105 H Respiratory Rate 18 Blood Pressure 90/47 L Pulse Oximetry 99 Oxygen Delivery Intake/Output Intake/Output: Intake & Output 02/12/23 02/13/23 02/14/23 02/15/23 23:59 23:59 23:59 23:59 Intake Total 1030 1180 1442 690 Output Total 400 950 450 100 Balance 630 230 992 590 Meds/Results Me
[2023-02-15] MEDS: ACETAMINOPHEN 500 MG TABLET 1000 MG PO ×2 (10:46→20:10)
[2023-02-15] MEDS: APIXABAN 5 MG TABLET PO ×2 (10:46→10:48)
[2023-02-15] MEDS: GABAPENTIN 300 MG CAPSULE 600 MG PO (10:47)
[2023-02-15] MEDS: METOPROLOL SUCCINATE EXT REL 50 MG TABCR PO (10:48)
[2023-02-15] MEDS: EZETIMIBE 10 MG TABLET PO (10:48)
[2023-02-15] MEDS: ATORVASTATIN 40 MG TABLET 80 MG PO (10:48)
[2023-02-15] MEDS: LIDOCAINE 5% PATCH 3 PATCH TRANSDERM (10:49)
[2023-02-15] MEDS: SERTRALINE HCL 50 MG TABLET PO (10:49)
--- NOTE | 2023-02-15 11:01 | PCPTNOTE ---
Patient on hold from therapy at this time due to patient not doing well per nursing. Will attempt at later time.
--- NOTE | 2023-02-15 12:42 | PM.IMPN ---
Progress Note: A&P Assessment and Plan (1) Severe sepsis: Code(s): A41.9 - Sepsis, unspecified organism; R65.20 - Severe sepsis without septic shock Status: Acute (2) CLAUDIA (acute kidney injury): Code(s): N17.9 - Acute kidney failure, unspecified Status: Acute (3) Atrial fibrillation with rapid ventricular response: Code(s): I48.91 - Unspecified atrial fibrillation Status: Acute (4) Old myocardial infarction: Onset Date: ~2012 Code(s): I25.2 - Old myocardial infarction Status: Acute (5) Aortic atherosclerosis: Onset Date: ~2006 Code(s): I70.0 - Atherosclerosis of aorta Status: Acute (6) Hypotension due to hypovolemia: Code(s): I95.89 - Other hypotension; E86.1 - Hypovolemia Status: Acute (7) Multifocal pneumonia: Code(s): J18.9 - Pneumonia, unspecified organism Status: Acute (8) Aspiration pneumonia: Code(s): J69.0 - Pneumonitis due to inhalation of food and vomit Status: Acute Plan Severe sepsis versus septic shock Patient has been having fever since yesterday with night Patient was noticed wants nausea vomiting Blood pressure low Patient is also found have elevated BUN creatinine 19/1.4, CT or 1.0 yesterday White blood cell 9.5k CT abdomen pelvis suggest multifocal pneumonia Given recent nausea vomiting, possible aspiration pneumonia Started doxycycline, soft of November, Flagyl IV Normal saline bolus 1 L, normal saline 100 mL/hour Follow-up blood culture, urinalysis Patient condition is not stable, consult power washer for evaluation treatment Multifocal pneumonia Patient notice nausea vomiting Keep patient p.o. Speech evaluation AFib RVR Uncontrolled heart rate, Likely 7 3 severe sepsis or septic shock Continue cardiac tele monitoring Switch to Cardizem 360 mg daily p.o.? per gold leaf roller heart rate fluctuates, highest heart rate about 170 Continue Eliquis 5 mg b.i.d. p.o. Hold Cardizem because of hypertension Hypotension Likely secondary to sepsis, AFib RVR Fluid resuscitation 1 L bolus Normal saline 100 mL/hour CLAUDIA Elevated BUN creatinine 19,1.4 today, BUN creatinine 16/1.0 9/1 Likely secondary to severe sepsis or septic shock Avoid nephrotoxin medication Follow urinalysis Avoid nephrotoxic medication Start fluid resuscitation Chronic anemia Hemoglobin 9.5 today, close to baseline No obvious bleeding Follow-up CBC Start Protonix 40 mg IV daily, patient is on Eliquis I have discussed case with power washer Subjective Date/time seen: 02/15/23 12:42 Interval history: I saw exam patient today. Patient has a cough, scant phlegm, patient feels tired some chest tightness bilaterally assessed with a cough. Patient vomited in the morning. Patient has been having fever over the night. Blood pressure low in the night, blood pressure 80/49 most of recent vital signs. CT abdomen pelvis suggest multifocal pneumonia in both lungs. Last temperature 102.1? Exam Narrative: PHYSICAL EXAMINATION: Vital signs: Please see the chart. General physical exam: Well-developed, well-nourished, in no acute distress. Head/eyes: Atraumatic, EOMI, PERRLA. ENT: Moist mucous membranes, nasal passages clear. Neck: Supple, full range of motion, trachea midline. CVS: S1 + S2, irregularly irregular rate and rhythm, no murmurs, tachycardia Respiratory: Coarse breath sound bilateral bases Abdomen: Soft, non-tender, bowel sounds +ve, no organomegaly Extremities: No clubbing, no cyanosis, no edema, no calf tenderness. Wearing right forearm splint. Musculoskeletal: Moves all, adequate range of motion, no muscle spasms Skin: Warm, dry, no jaundice, no cyanosis Neurological: Awake, alert, oriented x 3, cranial nerves II-XII intact, no focal neurological deficits Psychiatric: Normal mood, non suicidal Objective Data Vital Signs Vital Signs: Vital Signs - 24 hr 02/14/23 14:27 02/14/23 16:00 02/14/23
--- NOTE | 2023-02-15 14:01 | PCOTNOTE ---
Attempted to see pt for Occupational Therapy treatment. Pt declined to participate in therapeutic activities/self care tasks due to not feeling good, spiking a fever, and being very tired. Pt was encouraged to sit up in the chair however, continued to decline. Will continue per poc duration/frequency tomorrow.
--- NOTE | 2023-02-15 14:36 | WPDCNINT ---
Assessment and Plan Assessment and plan (1) Atrial fibrillation with rapid ventricular response: Code(s): I48.91 - Unspecified atrial fibrillation Status: Acute Assessment and Plan: Patient is in AFib with RVR. She is currently on extended release metoprolol and diltiazem. Patient blood pressure is low Will start Amio bolus followed by amiodarone infusion Hold metoprolol and diltiazem Patient is anticoagulated with Eliquis (2) Hypotension: Code(s): I95.9 - Hypotension, unspecified Status: Acute Assessment and Plan: Patient blood pressure was adequate overnight but has dropped this morning and it is likely a combination of sepsis, AFib with RVR and possible hypovolemia. Patient has hypertrophic cardiomyopathy making her specially sensitive to tachycardia and hypovolemia I will transfer patient to ICU 1 L bolus of normal saline at this time and normal saline infusion. She may need additional IV fluid bolus depending on her response Also start amiodarone infusion for rate control She may need vasopressors (3) Sepsis: Code(s): A41.9 - Sepsis, unspecified organism Status: Acute Assessment and Plan: Secondary to multifocal pneumonia and UTI CT scan has been read as a multifocal pneumonia but she has minimal infiltrates Blood and urine cultures have been sent She has been started on empiric empiric antibiotics including vancomycin Rocephin doxycycline Flagyl to cover for both community-acquired and aspiration pneumonia Check procalcitonin level, check lactic acid level (4) UTI (urinary tract infection): Code(s): N39.0 - Urinary tract infection, site not specified Status: Acute Assessment and Plan: Antibiotics as above (5) Multifocal pneumonia: Code(s): J18.9 - Pneumonia, unspecified organism Status: Acute Assessment and Plan: Antibiotics as above (6) Acute kidney injury superimposed on chronic kidney disease: Code(s): N17.9 - Acute kidney failure, unspecified; N18.9 - Chronic kidney disease, unspecified Status: Acute Assessment and Plan: Patient has chronic kidney disease. Creatinine elevated at 1.4 the today which is slightly worse than her presentation Will give IV fluid bolus and IV hydration Monitor urine output electrolytes and creatinine Check CK level Place Rich for accurate I&Os Renal ultrasound done last month reviewed Discontinue NSAIDs (7) Intra-articular fracture of distal end of right radius with volar angulation: Qualifiers: Encounter type: initial encounter Qualified Code(s): S52.571A - Other intraarticular fracture of lower end of right radius, initial encounter for closed fracture Code(s): S52.571A - Other intraarticular fracture of lower end of right radius, initial encounter for closed fracture Status: Acute Assessment and Plan: Status post close reduction Cast is in place Pain control Plan DVT prophylaxis -she is anticoagulated with Eliquis Stress ulcer prophylaxis -she is on pantoprazole Nutrition -heart healthy diet Code Status - Full Code Total Critical Care Time - 35 minutes Due to a high probability of clinically significant, life threatening deterioration, the patient required my highest level of preparedness to intervene emergently and I personally spent this critical care time directly and personally managing the patient. This critical care time included obtaining a history; examining the patient; pulse oximetry; ordering and review of studies; arranging urgent treatment with development of a management plan; evaluation of patient's response to treatment; frequent reassessment; and discussions with other providers. It was exclusive of separately billable procedures and treating other patients and teaching time. Please see Assessment and Plan section and the rest of the note for further information on patient assessment and treatment [employer] Consult
[2023-02-15] MEDS: SODIUM CHLORIDE 0.9% IV 1,000 ML 999 ML IV CONT ×2 (14:48→15:55)
[2023-02-15 15:25] LABS: Creatine Kinase 42 U/L (30-135)
[2023-02-15 15:43] LABS: Procalcitonin 0.5 ng/mL
[2023-02-15] MEDS: SODIUM CHLORIDE 0.9% IV 1,000 ML 100 ML IV CONT (15:45)
[2023-02-15] MEDS: AMIODARONE 360 MG/D5W 200 ML 360 MG/200 ML BAG 33.33 MG IV CONT ×2 (15:45→21:52)
[2023-02-15] MEDS: AMIODARONE 150 MG/D5W 100 ML 150 MG/100 ML BAG 600 MG IV CONT ×3 (15:45→21:54)
[2023-02-15] MEDS: PANTOPRAZOLE SODIUM IV 40 MG VIAL IV PUSH (15:45)
--- NOTE | 2023-02-15 16:05 | PC.NURSE ---
This patient arrived to ICU room 1 at 1545. Bedside report obtained by PHILIP Augustine with IMU department. Patient oriented to room policies and procedures. This RN to resume patient care.
[2023-02-15] MEDS: DOXYCYCLINE 100 MG/NS 100 ML 100 MG/100 ML BAG IVPB (18:07)
[2023-02-15] MEDS: cefTRIAXone 2 GM/NS 100 ML 2 GM/100 ML BAG IVPB (18:07)
[2023-02-15] MEDS: VANCOMYCIN 1,250 MG/NS 250 ML 1,250 MG/250 ML BAG 166.67 MG IVPB (18:08)
[2023-02-15] MEDS: VANCOMYCIN 1,000 MG/NS 250 ML 1,000 MG/250 ML BAG 250 MG IVPB (18:09)
[2023-02-15 18:23] LABS: Basophils Percent Auto 0.3 % (0.2-1.2); Eosinophils Percent Auto 0.2 % (0-4.4); Hematocrit 27.8 % (37.0-47.0); Hemoglobin 8.5 g/dL (12.0-15.0); Immature Granulocyte Absolute 0.21 K/mm3 (0.00-0.031); Immature Granulocyte Percent A 2.2 % (0-0.5); Lymphocytes Absolute Auto 0.64 K/mm3 (0.9-3.2); Lymphocytes Percent Auto 6.8 % (18.3-44.2); Mean Corpuscular HGB Conc 30.6 g/dl (32-36); Mean Corpuscular Hemoglobin 29.9 pg (26-34); Mean Corpuscular Volume 97.9 fl (80-100); Mean Platelet Volume 10.5 fl (7.4-10.4); Monocytes Absolute Auto 0.7 K/mm3 (0.1-0.6); Monocytes Percent Auto 7.4 % (2.6-8.5); Neutrophils Absolute Auto 7.8 K/mm3 (1.3-6.7); Neutrophils Percent Auto 83.1 % (45.5-73.1); Platelet Count Result 195 k/mm3 (150-375); Red Blood Count 2.84 M/mm3 (4.2-5.4); Red Cell Distribution Width 12.7 % (11.5-14.5); White Blood Count 9.4 K/mm3 (4.5-10.0)
[2023-02-15 19:23] LABS: Glucose Point of Care 127 mg/dl (65-105)
[2023-02-15] MEDS: AMIODARONE 360 MG/D5W 200 ML 360 MG/200 ML BAG 16.67 MG IV CONT (21:04)
[2023-02-15] MEDS: CENTRAL LINE FLUSH 10 ML IV PUSH (22:17)
--- NOTE | 2023-02-15 22:17 | WPDPROCEDUR ---
Procedures Central Line Placement Right Femoral: Central Line Date: 02/15/23 Central Line Time: 16:50 Discussed w/ the patient/family/POA,the placement of a central venous catheter, including its clinical necessity/indication & associated potential risks, benifits and alternatives.: Yes The patient/family/POA understand(s) and acknowledge(s) the need to proceed with central venous catheter insertion as an important element of the patient's clinical management.: Yes Performed Emergently - Given emergent patient condition, temporal constraints may have precluded informed consent.: Yes Consent: I have discussed with the patient and/or surrogate, the non-emergent placement of a central venous catheter, including its clinical necessity/indication and associated potential risks and complications. The patient and/or surrogate understand(s) and acknowledge(s) the need to proceed with central venous catheter insertion as an important element of the patient's clinical management. Time Out Performed: Yes Patient Position: supine Patient placed on monitor/pulse ox: Yes Provider Prep: mask, sterile gown, sterile gloves, Max. sterile barrier precautions, cap and hand hygiene with conventional soap/water or alcohol based hand rub Central line prep: 2% Chlorhexidine scrub and sterile full body sheet applied Local anesthesia used: lidocaine 1% Amount of anesthesia used (ml): 4 Sterile US Technique with sterile gel/sterile probe covers: Yes Central line lumen inserted: triple Icelandic: 17 Post Procedure: sutured in place, good blood return, all ports aspirated, flushed, capped, transparent dressing, antimicrobial product, securement product and aseptic technique maintained throughout procedure Patient tolerated procedure: well Complications: none Additional comments: 3 punctures
[2023-02-16] VITALS (43 sets, daily range): BP systolic 82–134; BP diastolic 41–85; PULSE 69–132; RESP 14–28; TEMP 36.9–39.4; O2SAT 95–100
[2023-02-16 00:04] LABS: Glucose Point of Care 143 mg/dl (65-105)
--- NOTE | 2023-02-16 01:08 | ECG_ITS ---
Measurements Intervals [place] Rate: 130 P: [place]: 0 QRS: 40 QRSD: 99 T: 184 QT: 325 QTc: 478 Interpretive Statements ATRIAL FIBRILLATION WITH RAPID VENTRICULAR RESPONSE NONSPECIFIC ST & T-WAVE ABNORMALITY- DIFFUSE LEADS BASELINE ARTIFACT- I, II, III, AVL, AVF ABNORMAL ECG COMPARED TO ECG 02/11/2023 09:09:10 NO SIGNIFICANT CHANGES Electronically Signed On 02-16-2023 8:38:00 CDT by Dannie Younger D.O.
[2023-02-16 02:12] LABS: Troponin I < 0.012 ng/mL (0.000-0.034)
[2023-02-16] MEDS: AMIODARONE 360 MG/D5W 200 ML 360 MG/200 ML BAG 33.33 MG IV CONT ×4 (03:52→21:32)
[2023-02-16] MEDS: ACETAMINOPHEN 500 MG TABLET 1000 MG PO ×2 (03:52→15:06)
[2023-02-16] MEDS: DOXYCYCLINE 100 MG/NS 100 ML 100 MG/100 ML BAG IVPB (04:59)
[2023-02-16] MEDS: CENTRAL LINE FLUSH 10 ML IV PUSH ×3 (04:59→21:32)
[2023-02-16 05:11] LABS: Hematocrit 27.7 % (37.0-47.0); Hemoglobin 8.6 g/dL (12.0-15.0); Mean Corpuscular Hemoglobin 30.5 pg (26-34); Mean Corpuscular Volume 98.2 fl (80-100); Mean Platelet Volume 10.7 fl (7.4-10.4); Platelet Count Result 190 k/mm3 (150-375); Red Blood Count 2.82 M/mm3 (4.2-5.4); Red Cell Distribution Width 12.8 % (11.5-14.5); White Blood Count 7.9 K/mm3 (4.5-10.0)
[2023-02-16 05:22] LABS: Alanine Aminotransferase 17 U/L (6-35); Alkaline Phosphatase 107 U/L (38-126); Anion Gap 10 mmol/L (8-16); Aspartate Amino Transferase 22 U/L (14-36); Bilirubin,Total 0.4 mg/dL (0.2-1.3); Blood Urea Nitrogen 17 mg/dL (7-17); Calcium 7.5 mg/dL (8.4-10.2); Carbon Dioxide 19 mmol/L (22-30); Chloride 106 mmol/L (98-107); Estimated CRCL calculation 38 ml/min; Estimated Glomerular Filt Rate 44; Glucose 133 mg/dL (65-110); Magnesium 1.6 mg/dL (1.6-2.3); Potassium 4.1 mmol/L (3.4-5.0); Sodium 135 mmol/L (137-145)
--- NOTE | 2023-02-16 08:21 | PM.IMPN ---
Progress Note: A&P Assessment and Plan (1) Atrial fibrillation with rapid ventricular response: Code(s): I48.91 - Unspecified atrial fibrillation Status: Acute Assessment and Plan: Patient is in AFib with RVR. She is currently on extended release metoprolol and diltiazem. Patient blood pressure is low Will start Amio bolus followed by amiodarone infusion Hold metoprolol and diltiazem Patient is anticoagulated with Eliquis (2) Hypotension: Code(s): I95.9 - Hypotension, unspecified Status: Acute Assessment and Plan: Patient blood pressure was adequate overnight but has dropped this morning and it is likely a combination of sepsis, AFib with RVR and possible hypovolemia. Patient has hypertrophic cardiomyopathy making her specially sensitive to tachycardia and hypovolemia transfer patient to ICU 1 L bolus of normal saline at this time and normal saline infusion. start amiodarone infusion for rate control She may need vasopressors (3) Sepsis: Code(s): A41.9 - Sepsis, unspecified organism Status: Acute Assessment and Plan: Secondary to multifocal pneumonia and UTI, and possible cellulitis of left arm CT scan has been read as a multifocal pneumonia but she has minimal infiltrates left cubital fossa area of induration and warmth and small amount purulent discharge suggestive of cellulitis and infection Blood culture positive g cocci in cluster and urine cultures pending She has been started on empiric empiric antibiotics including vancomycin Rocephin doxycycline Flagyl to cover for both community-acquired and aspiration pneumonia Check procalcitonin level, check lactic acid level Patient has no leukocytosis but have left shift, immature granulocytes 24% indicating sepsis Discontinue doxycycline (4) UTI (urinary tract infection): Code(s): N39.0 - Urinary tract infection, site not specified Status: Acute Assessment and Plan: Antibiotics as above (5) Multifocal pneumonia: Code(s): J18.9 - Pneumonia, unspecified organism Status: Acute Assessment and Plan: Antibiotics as above (6) Acute kidney injury superimposed on chronic kidney disease: Code(s): N17.9 - Acute kidney failure, unspecified; N18.9 - Chronic kidney disease, unspecified Status: Acute Assessment and Plan: Patient has chronic kidney disease. Creatinine elevated at 1.4 the today which is slightly worse than her presentation Will give IV fluid bolus and IV hydration Monitor urine output electrolytes and creatinine Check CK level Place Rich for accurate I&Os Renal ultrasound done last month reviewed (7) Intra-articular fracture of distal end of right radius with volar angulation: Qualifiers: Encounter type: initial encounter Qualified Code(s): S52.571A - Other intraarticular fracture of lower end of right radius, initial encounter for closed fracture Code(s): S52.571A - Other intraarticular fracture of lower end of right radius, initial encounter for closed fracture Status: Acute Assessment and Plan: Status post close reduction Cast is in place Pain control (8) Left arm cellulitis: Code(s): L03.114 - Cellulitis of left upper limb Status: Acute Assessment and Plan: Redness tender a swelling of left arm antecubital fossa IV access was removed Plan DVT prophylaxis -she is anticoagulated with Eliquis Stress ulcer prophylaxis -she is on pantoprazole Nutrition -heart healthy diet Code Status - Full Code Subjective Date/time seen: 02/16/23 08:21 Interval history: I saw exam patient today. Last temperature 102.3? 6am today. Blood pressure low, converted to sinus rhythm by promotions officer. Exam Narrative: General: Pt is alert awake and in NAD Lungs/Chest: Trachea central Clear BS B/L, No crackles or wheezing. Breath sounds are decreased on both bases Cardiac: Irregular rhythm tachycardia. Normal
--- NOTE | 2023-02-16 08:29 | WPDINTPN ---
Progress Note: A&P Assessment and Plan (1) Atrial fibrillation with rapid ventricular response: Code(s): I48.91 - Unspecified atrial fibrillation Status: Acute Assessment and Plan: Patient is in AFib with RVR. She was on extended release metoprolol and diltiazem. Patient blood pressure is low 9/2 patient was given Amio bolus followed by amiodarone infusion metoprolol and diltiazem were held Ventricular rate improved but still high Continue amiodarone infusion. Will discuss with Cardiology Patient is anticoagulated with Eliquis (2) Sepsis: Code(s): A41.9 - Sepsis, unspecified organism Status: Acute Assessment and Plan: On presentation to suspected the patient had sepsis secondary to multifocal pneumonia and UTI CT scan has been read as a multifocal pneumonia but she has minimal infiltrates. UA also appears abnormal but patient did not had any urinary symptoms prior to presentation or while in the hospital Procalcitonin level was minimally elevated. Lactic acid level was normal. WBC is normal She did had IV in the left arm which has infiltrated and the surrounding area is red and indurated. The fracture on the her right arm is had closed reduction and there is no open skin or skin breakdown under the splint. No other joint swelling redness or skin breakdown Blood cultures are growing Gram-positive cocci. Urine culture is pending Continue vancomycin and Rocephin at this time. Discontinue doxy and Flagyl (3) Hypotension: Code(s): I95.9 - Hypotension, unspecified Status: Acute Assessment and Plan: Hypertension likely a combination of sepsis, AFib with RVR and possible hypovolemia. Patient has hypertrophic cardiomyopathy making her specially sensitive to tachycardia and hypovolemia Patient was given 2 L saline bolus which had a temporary improvement in blood pressure Femoral central venous catheter was placed and patient was started on Tim-Synephrine infusion Continue titrate Tim-Synephrine maintain map Her lactic acid level was normal (4) UTI (urinary tract infection): Code(s): N39.0 - Urinary tract infection, site not specified Status: Acute Assessment and Plan: Antibiotics as above (5) Multifocal pneumonia: Code(s): J18.9 - Pneumonia, unspecified organism Status: Acute Assessment and Plan: Antibiotics as above (6) Acute kidney injury superimposed on chronic kidney disease: Code(s): N17.9 - Acute kidney failure, unspecified; N18.9 - Chronic kidney disease, unspecified Status: Acute Assessment and Plan: Patient has chronic kidney disease. Creatinine elevated at 1.4 yesterday which is slightly worse than her presentation Patient was given iV fluid bolus and IV hydration Creatinine improved to 1.2 Monitor urine output electrolytes and creatinine Normal CK level Continue rosas for accurate I&Os Renal ultrasound done last month reviewed. 02/15 CT scan negative for any hydronephrosis or stones NSAIDs discontinued (7) Intra-articular fracture of distal end of right radius with volar angulation: Qualifiers: Encounter type: initial encounter Qualified Code(s): S52.571A - Other intraarticular fracture of lower end of right radius, initial encounter for closed fracture Code(s): S52.571A - Other intraarticular fracture of lower end of right radius, initial encounter for closed fracture Status: Acute Assessment and Plan: Status post close reduction Cast is in place Pain control (8) Bacteremia: Code(s): R78.81 - Bacteremia Status: Acute Assessment and Plan: See above (9) Left arm cellulitis: Code(s): L03.114 - Cellulitis of left upper limb Status: Acute Assessment and Plan: See above Plan DVT prophylaxis -she is anticoagulated with Eliquis Stress ulcer prophylaxis -she is on pantoprazole Nutrition -heart healthy diet Code Status - Full Code Total
[2023-02-16] MEDS: ATORVASTATIN 40 MG TABLET 80 MG PO (08:44)
[2023-02-16] MEDS: SERTRALINE HCL 50 MG TABLET PO (08:44)
[2023-02-16] MEDS: EZETIMIBE 10 MG TABLET PO (08:44)
[2023-02-16] MEDS: PANTOPRAZOLE SODIUM IV 40 MG VIAL IV PUSH (08:45)
[2023-02-16] MEDS: cefTRIAXone 2 GM/NS 100 ML 2 GM/100 ML BAG IVPB (08:45)
[2023-02-16] MEDS: APIXABAN 5 MG TABLET PO ×2 (08:45→16:06)
[2023-02-16] MEDS: MAGNESIUM SULF 2 GM/WATER 50ML 2 GM/50 ML BAG IVPB (08:45)
--- NOTE | 2023-02-16 09:38 | PM.PNCARD ---
Progress Note: A&P Assessment and Plan (1) Atrial fibrillation with rapid ventricular response: Code(s): I48.91 - Unspecified atrial fibrillation Status: Acute Plan 77-year-old lady with recurrent problematic atrial fibrillation which despite good LV systolic function has been very difficult to manage and became more difficult yesterday with the development of fever and bacteremia. Will keep her on intravenous amiodarone and attempt to restore sinus rhythm electrically this morning. Hopefully amiodarone will be effective at maintaining sinus rhythm. Initial plan to rate control the patient and refer her back to her traffic observer at [place] will need to be changed to attempt rhythm control again since she has been not able to be controlled in a satisfactory/hemodynamically stable fashion. Reddy Monahan MD [facility] Subjective Date/time seen: Date of service: 02/16/23 09:38 Interval history: Follow-up visit in this 77-year-old lady with: Recurrent persistent atrial fibrillation despite recent cardioversion at [place] and also despite recent treatment with sotalol here at this hospital. Previous history of coronary bypass grafting also history of apical left ventricular hypertrophy. Patient transferred to ICU last night because of symptomatic hypotension and AF with RVR also became febrile and had Gram-positive bacteremia noted. This is suspected to be due to an infected IV site. Has been on IV amiodarone since yesterday afternoon and metoprolol and diltiazem are discontinued with the moment. Exam Const: General: comfortable and no acute distress Other: Pleasant elderly lady lying comfortably in bed HENMT: Mouth: Yes moist mucous membranes Eyes: Sclera: sclerae normal Neck: Neck: supple and no JVD Other: Carotid pulses are normal bilaterally Resp: Effort & Inspection: normal respiratory effort Auscultation: clear to auscultation bilaterally, no crackles, no rales and no wheezes Other: Crackles R base this AM Cardio: Rate: regular rate and tachycardic Rhythm: abnormal rhythm irregularly irregular GI: Auscultation: normal bowel sounds Skin: General skin exam: normal color Neuro: Other: Alert and oriented x3 Extrem: Other: Normal perfusion, no edema Objective Data Vital Signs Vital Signs: Vital Signs - 24 hr 02/15/23 10:48 02/15/23 12:28 02/15/23 12:00 Temperature 38.9 C H Pulse Rate 145 H 160 H Respiratory Rate 18 Blood Pressure 80/49 L Pulse Oximetry 97 Oxygen Delivery Room Air 02/15/23 10:00 02/15/23 12:00 02/15/23 14:00 Temperature Pulse Rate 135 H 150 H 130 H Respiratory Rate Blood Pressure Pulse Oximetry Oxygen Delivery 02/15/23 15:45 02/15/23 16:00 02/15/23 15:50 Temperature 36.8 C 36.9 C Pulse Rate 128 H 112 H Respiratory Rate 21 H 20 Blood Pressure 76/36 L 62/50 L 75/40 L Pulse Oximetry 95 95 Oxygen Delivery 02/15/23 18:00 02/15/23 15:45 02/15/23 15:45 Temperature 37.2 C Pulse Rate 129 H 128 H 128 H Respiratory Rate 23 H Blood Pressure 103/58 L 76/36 L 76/36 L Pulse Oximetry 97 Oxygen Delivery 02/15/23 19:11 02/15/23 20:10 02/15/23 20:00 Temperature 39.0 C H Pulse Rate 144 H Respiratory Rate Blood Pressure 119/77 Pulse Oximetry Oxygen Delivery Room Air 02/15/23 20:00 02/15/23 20:00 02/15/23 16:00 Temperature 39.1 C H Pulse Rate 137 H 137 H 128 H Respiratory Rate 23 H Blood Pressure 102/70 Pulse Oximetry 96 Oxygen Delivery 02/15/23 18:00 02/15/23 15:55 02/15/23 19:21 Temperature Pulse Rate 141 H 130 H 130 H Respiratory Rate Blood Pressure Pulse Oximetry Oxygen Delivery 02/15/23 21:04 02/15/23 21:51 02/15/23 21:52 Temperature Pulse Rate 129 H 130 H 131 H Respiratory Rate Blood Pressure 106/52 L 96/46 L Pulse Oximetry Oxygen Delivery 02/15/23 21:54 02/15/23 21:12 02/15/23 22:00 [place]
--- NOTE | 2023-02-16 09:39 | ECG_ITS ---
Measurements Intervals [place] Rate: 73 P: 12 MD: 172 QRS: 27 QRSD: 103 T: 160 QT: 428 QTc: 475 Interpretive Statements SINUS RHYTHM ST-T WAVE ABNORMALITY IN ANTEROLAT/HIGH LAT LEADS- CONSIDER ISCHEMIA ABNORMAL ECG COMPARED TO ECG 02/16/2023 01:18:[address] NOW PRESENT ST-T WAVE ABNORMALITY NOW PRESENT Electronically Signed On 02-16-2023 16:48:52 CDT by Dannie Younger D.O.
[2023-02-16] MEDS: PROPOFOL IV EMULSION 200 MG/20 ML VIAL 40 MG IV PUSH (10:09)
--- NOTE | 2023-02-16 10:12 | P.PCNCC_ITS ---
Cardiac Cath Procedure Note Date of procedure:: 02/16/23 Performing physician:: Reddy Monahan MD Indication:: Persistent/hemodynamically embarrassing atrial fibrillation Brief clinical history:: This is a 77-year-old lady with a history of atrial fibrillation beginning earlier this summer. Following cardioversion at another hospital she had an early recurrence of her AFib. She was treated with sotalol with pentecostalism of sinus rhythm but then shortly thereafter recurred into atrial fibrillation. A rate control strategy was chosen but with metoprolol and diltiazem she became problematically hypotensive. She is now on intravenous amiodarone and attempt at restoring sinus rhythm electrically has been recommended for this morning. Procedure Procedure performed:: DC cardioversion Sedation/Medication given:: Propofol 40 mg IV push Procedure note:: Patient was in the ICU in the postabsorptive state in the supine position defibrillator patches were placed in the AP position. She was sedated with propofol 1 bolus of 40 mg provided excellent sedation. I then DC cardioverted her in synchronized fashion with 200 joules restoring sinus rhythm. Findings:: As above Conclusion:: Successful uncomplicated DC cardioversion of atrial fib restoring sinus rhythm using 200 joules x1 shock. Patient will continue on intravenous amiodarone until at least tomorrow. Reddy Monahan MD [facility]
[2023-02-16 12:08] LABS: Glucose Point of Care 113 mg/dl (65-105)
--- NOTE | 2023-02-16 13:38 | PCPTNOTE ---
Patient transferred from IMU to ICU, attempted re-eval on hold secondary to femoral line.
[2023-02-16] MEDS: SODIUM CHLORIDE 0.9% IV 1,000 ML 50 ML IV CONT (15:04)
[2023-02-16 15:57] LABS: Basophils Percent Auto 0.2 % (0.2-1.2); Eosinophils Percent Auto 0.2 % (0-4.4); Hematocrit 27.2 % (37.0-47.0); Hemoglobin 8.4 g/dL (12.0-15.0); Immature Granulocyte Absolute 0.16 K/mm3 (0.00-0.031); Immature Granulocyte Percent A 1.9 % (0-0.5); Lymphocytes Absolute Auto 0.44 K/mm3 (0.9-3.2); Lymphocytes Percent Auto 5.3 % (18.3-44.2); Mean Corpuscular HGB Conc 30.9 g/dl (32-36); Mean Corpuscular Hemoglobin 30.1 pg (26-34); Mean Corpuscular Volume 97.5 fl (80-100); Monocytes Absolute Auto 0.7 K/mm3 (0.1-0.6); Monocytes Percent Auto 8.9 % (2.6-8.5); Neutrophils Absolute Auto 6.9 K/mm3 (1.3-6.7); Neutrophils Percent Auto 83.5 % (45.5-73.1); Platelet Count Result 204 k/mm3 (150-375); Red Blood Count 2.79 M/mm3 (4.2-5.4); White Blood Count 8.3 K/mm3 (4.5-10.0)
[2023-02-16 18:02] LABS: Glucose Point of Care 132 mg/dl (65-105)
--- NOTE | 2023-02-16 19:02 | PC.NURSE ---
Phenylephrine resumed at 1745 at 40mcg/min per protocol. New order was placed and bar code would not scan. Pharmacy aware. Double verified initiating dose with PHILIP Jacobs.
[2023-02-16 21:35] LABS: Glucose Point of Care 130 mg/dl (65-105)
[2023-02-17] VITALS (22 sets, daily range): BP systolic 96–133; BP diastolic 57–94; PULSE 80–148; RESP 12–26; TEMP 37.3–38.1; O2SAT 91–96
[2023-02-17] MEDS: ONDANSETRON HCL ODT 4 MG TABLET PO (02:34)
[2023-02-17] MEDS: ACETAMINOPHEN 500 MG TABLET 1000 MG PO (02:36)
[2023-02-17] MEDS: AMIODARONE 360 MG/D5W 200 ML 360 MG/200 ML BAG 33.33 MG IV CONT ×2 (02:52→09:26)
[2023-02-17] MEDS: CENTRAL LINE FLUSH 10 ML IV PUSH (04:39)
[2023-02-17 04:56] LABS: Hematocrit 23.2 % (37.0-47.0); Hemoglobin 7.3 g/dL (12.0-15.0); Mean Corpuscular HGB Conc 31.5 g/dl (32-36); Mean Corpuscular Hemoglobin 30.3 pg (26-34); Mean Corpuscular Volume 96.3 fl (80-100); Mean Platelet Volume 11.4 fl (7.4-10.4); Platelet Count Result 200 k/mm3 (150-375); Red Blood Count 2.41 M/mm3 (4.2-5.4); Red Cell Distribution Width 13.1 % (11.5-14.5); White Blood Count 6.4 K/mm3 (4.5-10.0)
[2023-02-17 05:05] LABS: Alanine Aminotransferase 15 U/L (6-35); Albumin Level 2.7 g/dL (3.5-5.1); Alkaline Phosphatase 108 U/L (38-126); Anion Gap 6 mmol/L (8-16); Aspartate Amino Transferase 22 U/L (14-36); Bilirubin,Total 0.3 mg/dL (0.2-1.3); Blood Urea Nitrogen 14 mg/dL (7-17); Calcium 7.2 mg/dL (8.4-10.2); Carbon Dioxide 19 mmol/L (22-30); Chloride 107 mmol/L (98-107); Estimated CRCL calculation 50 ml/min; Estimated Glomerular Filt Rate > 60; Glucose 143 mg/dL (65-110); Magnesium 2.2 mg/dL (1.6-2.3); Potassium 3.5 mmol/L (3.4-5.0); Sodium 132 mmol/L (137-145)
[2023-02-17 07:21] LABS: Glucose Point of Care 144 mg/dl (65-105)
--- NOTE | 2023-02-17 08:15 | WPDINTPN ---
Progress Note: A&P Assessment and Plan (1) Atrial fibrillation with rapid ventricular response: Code(s): I48.91 - Unspecified atrial fibrillation Status: Acute Assessment and Plan: Patient is in AFib with RVR. She was on extended release metoprolol and diltiazem. Patient blood pressure is low 9/2 patient was given Amio bolus followed by amiodarone infusion metoprolol and diltiazem were held Ventricular rate improved but still high 9/3 patient was cardioverted to sinus rhythm by Cardiology but patient went back into AFib with RVR early this morning Continue amiodarone infusion. Will give additional 150 mg bolus. I will also start low-dose beta-demetrius and discuss with Cardiology Patient is anticoagulated with Eliquis (2) Sepsis: Code(s): A41.9 - Sepsis, unspecified organism Status: Acute Assessment and Plan: On presentation to suspected the patient had sepsis secondary to multifocal pneumonia and UTI CT scan has been read as a multifocal pneumonia but she has minimal infiltrates. UA also appears abnormal but patient did not had any urinary symptoms prior to presentation or while in the hospital Procalcitonin level was minimally elevated. Lactic acid level was normal. WBC is normal She did had IV in the left arm which has infiltrated and the surrounding area is red and indurated. The fracture on the her right arm is had closed reduction and there is no open skin or skin breakdown under the splint. No other joint swelling redness or skin breakdown Blood cultures are growing MRSA. Urine culture is negative Continue vancomycin and Rocephin at this time. Discontinue doxy and Flagyl Will send repeat cultures and check echocardiogram (3) Hypotension: Code(s): I95.9 - Hypotension, unspecified Status: Acute Assessment and Plan: Hypotension likely a combination of sepsis, AFib with RVR and possible hypovolemia. Patient has hypertrophic cardiomyopathy making her specially sensitive to tachycardia and hypovolemia Patient was given IV fluid bolus which had a temporary improvement in blood pressure Femoral central venous catheter was placed and patient was started on Tim-Synephrine infusion which has been weaned off this morning Will discontinue IV fluids as patient is now developing volume overload. Continue to titrate Tim-Synephrine maintain map if needed Her lactic acid level was normal (4) UTI (urinary tract infection): Code(s): N39.0 - Urinary tract infection, site not specified Status: Acute Assessment and Plan: Antibiotics as above (5) Multifocal pneumonia: Code(s): J18.9 - Pneumonia, unspecified organism Status: Acute Assessment and Plan: Antibiotics as above (6) Acute kidney injury superimposed on chronic kidney disease: Code(s): N17.9 - Acute kidney failure, unspecified; N18.9 - Chronic kidney disease, unspecified Status: Acute Assessment and Plan: Patient has chronic kidney disease. Creatinine elevated at 1.4 yesterday which is slightly worse than her presentation Patient was treated with iV fluid bolus and IV hydration Creatinine improved to normal range Monitor urine output electrolytes and creatinine Normal CK level Continue rosas for accurate I&Os Renal ultrasound done last month reviewed. 02/15 CT scan negative for any hydronephrosis or stones NSAIDs discontinued DC further IV fluids (7) Intra-articular fracture of distal end of right radius with volar angulation: Qualifiers: Encounter type: initial encounter Qualified Code(s): S52.571A - Other intraarticular fracture of lower end of right radius, initial encounter for closed fracture Code(s): S52.571A - Other intraarticular fracture of lower end of right radius, initial encounter for closed fracture Status: Acute Assessment and Plan: Status post close reduction Splint is in place Pain control (8) Bacteremia: Code(s): R78.81 -
--- NOTE | 2023-02-17 08:27 | PCOTNOTE ---
Pt. currently has femoral line placement and is unable to be seen for therapy services. Nursing aware. Following
[2023-02-17] MEDS: APIXABAN 5 MG TABLET PO (08:31)
[2023-02-17] MEDS: cefTRIAXone 2 GM/NS 100 ML 2 GM/100 ML BAG IVPB (08:31)
[2023-02-17] MEDS: ATORVASTATIN 40 MG TABLET 80 MG PO (08:31)
[2023-02-17] MEDS: SERTRALINE HCL 50 MG TABLET PO (08:31)
[2023-02-17] MEDS: PANTOPRAZOLE SODIUM IV 40 MG VIAL IV PUSH (08:31)
[2023-02-17] MEDS: EZETIMIBE 10 MG TABLET PO (08:31)
--- NOTE | 2023-02-17 09:03 | ECG_ITS ---
Measurements Intervals [place] Rate: 128 P: [place]: 0 QRS: 23 QRSD: 108 T: 204 QT: 343 QTc: 501 Interpretive Statements ATRIAL FIBRILLATION WITH RAPID VENTRICULAR RESPONSE ST-T WAVE ABNORMALITY IN HIGH LATERAL LEADS- CONSIDER ISCHEMIA ABNORMAL ECG COMPARED TO ECG 02/16/2023 11:10:40 ATRIAL FIBRILLATION NOW PRESENT Electronically Signed On 02-17-2023 15:55:27 CDT by Dannie Younger D.O.
--- NOTE | 2023-02-17 09:11 | PM.PNCARD ---
Progress Note: A&P Assessment and Plan (1) Atrial fibrillation with rapid ventricular response: Code(s): I48.91 - Unspecified atrial fibrillation Status: Acute Plan For now continue amiodarone infusion. Low-dose beta-demetrius has been reintroduced this morning to try to provide some additional rate control which is reasonable. We will contact her mentally impaired teacher at [facility] to request that they consider transfer to their hospital for EP consultation. She would either require ablation of her AFib or alternatively AV junction ablation and pacemaker implantation. The services of course are not available here at [place]. Reddy Monahan MD [facility] Subjective Date/time seen: Date of service: 02/17/23 09:11 Interval history: Follow-up visit in this 77-year-old lady with: Recurrent persistent atrial fibrillation despite recent cardioversion at [facility] and also despite recent treatment with sotalol here at this hospital. Previous history of coronary bypass grafting also history of apical left ventricular hypertrophy. Patient transferred to ICU last night because of symptomatic hypotension and AF with RVR also became febrile and had Gram-positive bacteremia noted. This is suspected to be due to an infected IV site. Has been on IV amiodarone since yesterday afternoon and metoprolol and diltiazem are discontinued with the moment. 02/17/2023: Patient is essentially asymptomatic. Cardioverted yesterday on IV amiodarone to sinus rhythm. Unfortunately this morning reverted back to atrial fibrillation heart rate between 120-140. Hemodynamically not unstable and off of Tim-Synephrine. Discussion with the patient regarding potential need to transfer her to [facility] where her mentally impaired teacher practices for higher level of care since we have not met with success with either rhythm control or rate control strategy at this hospital. Exam Const: General: comfortable and no acute distress Other: Pleasant elderly lady lying comfortably in bed HENMT: Mouth: Yes moist mucous membranes Eyes: Sclera: sclerae normal Neck: Neck: supple and no JVD Other: Carotid pulses are normal bilaterally Resp: Effort & Inspection: normal respiratory effort Auscultation: clear to auscultation bilaterally, no crackles, no rales and no wheezes Other: Crackles R base this AM Cardio: Rate: regular rate and tachycardic Rhythm: abnormal rhythm irregularly irregular GI: Auscultation: normal bowel sounds Skin: General skin exam: normal color Neuro: Other: Alert and oriented x3 Extrem: Other: Normal perfusion, no edema Objective Data Vital Signs Vital Signs: Vital Signs - 24 hr 02/16/23 10:05 02/16/23 10:15 02/16/23 10:09 Temperature 37.6 C H 37.7 C H 37.7 C H Pulse Rate Pulse Rate [Monitor] 125 H 72 128 H Respiratory Rate 21 H 16 18 Blood Pressure Blood Pressure [Left Arm] 101/69 82/42 L 101/69 Pulse Oximetry 99 99 97 Oxygen Delivery Nasal Cannula Nasal Cannula Nasal Cannula Oxygen Flow Rate 2 2 2 02/16/23 10:13 02/16/23 10:29 02/16/23 10:31 Temperature 37.7 C H 37.7 C H 37.7 C H Pulse Rate Pulse Rate [Monitor] 69 72 71 Respiratory Rate 18 21 H 21 H Blood Pressure Blood Pressure [Left Arm] 88/41 L 89/43 L 100/48 L Pulse Oximetry 100 100 100 Oxygen Delivery Nasal Cannula Nasal Cannula Nasal Cannula Oxygen Flow Rate 2 2 2 02/16/23 10:32 02/16/23 09:53 02/16/23 09:53 Temperature Pulse Rate 71 126 H 126 H Pulse Rate [Monitor] Respiratory Rate Blood Pressure 100/48 L 85/46 L 85/46 L Blood Pressure [Left Arm] Pulse Oximetry Oxygen Delivery Oxygen Flow Rate 02/16/23 10:00 02/16/23 10:10 02/16/23 10:11 Temperature 37.7 C H 37.7 C H 37.7 C H Pulse Rate 128 H Pulse Rate [Monitor] 131 H 130 H Respiratory Rate 18 14 18 Blood Pressure 85/46 L Blood Pressure [Left Arm] 101/69 88/43 L Pulse Oximetry 97 96 98 Oxygen Delivery Nasal Cannula Nasal Cannula
--- NOTE | 2023-02-17 09:21 | P.PNIM_ITS ---
Progress Note: A&P Assessment and Plan (1) Atrial fibrillation with rapid ventricular response: Code(s): I48.91 - Unspecified atrial fibrillation Status: Acute Assessment and Plan: Patient is in AFib with RVR. She was on extended release metoprolol and diltiazem. Patient blood pressure is low 9/2 patient was given Amio bolus followed by amiodarone infusion metoprolol and diltiazem were held Ventricular rate improved but still high 9/3 patient was cardioverted to sinus rhythm by Cardiology but patient went back into AFib with RVR early this morning Continue amiodarone infusion. Will give additional 150 mg bolus. I will also start low-dose beta-demetrius and discuss with Cardiology Patient is anticoagulated with Eliquis (2) Sepsis: Code(s): A41.9 - Sepsis, unspecified organism Status: Acute Assessment and Plan: On presentation to suspected the patient had sepsis secondary to multifocal pneumonia and UTI CT scan has been read as a multifocal pneumonia but she has minimal infiltrates. UA also appears abnormal but patient did not had any urinary symptoms prior to presentation or while in the hospital Procalcitonin level was minimally elevated. Lactic acid level was normal. WBC is normal She did had IV in the left arm which has infiltrated and the surrounding area is red and indurated. The fracture on the her right arm is had closed reduction and there is no open skin or skin breakdown under the splint. No other joint swelling redness or skin breakdown Blood cultures are growing MRSA. Urine culture is negative Continue vancomycin and Rocephin at this time. Discontinue doxy and Flagyl Will send repeat cultures and check echocardiogram (3) Hypotension: Code(s): I95.9 - Hypotension, unspecified Status: Acute Assessment and Plan: Hypertension likely a combination of sepsis, AFib with RVR and possible hypovolemia. Patient has hypertrophic cardiomyopathy making her specially sensitive to tachycardia and hypovolemia Patient was given IV fluid bolus which had a temporary improvement in blood pressure Femoral central venous catheter was placed and patient was started on Tim- Synephrine infusion which has been weaned off this morning Will discontinue IV fluids as patient is well volume overload. Continue to titrate Tim-Synephrine maintain map if needed Her lactic acid level was normal (4) UTI (urinary tract infection): Code(s): N39.0 - Urinary tract infection, site not specified Status: Acute Assessment and Plan: Antibiotics as above (5) Multifocal pneumonia: Code(s): J18.9 - Pneumonia, unspecified organism Status: Acute Assessment and Plan: Antibiotics as above (6) Acute kidney injury superimposed on chronic kidney disease: Code(s): N17.9 - Acute kidney failure, unspecified; N18.9 - Chronic kidney disease, unspecified Status: Acute Assessment and Plan: Patient has chronic kidney disease. Creatinine elevated at 1.4 yesterday which is slightly worse than her presentation Patient was treated with iV fluid bolus and IV hydration Creatinine improved to normal range Monitor urine output electrolytes and creatinine Normal CK level Continue alison for accurate I&Os Renal ultrasound done last month reviewed. 02/15 CT scan negative for any hydronephrosis or stones NSAIDs discontinued DC further IV fluids (7) Intra-articular fracture of distal end of right radius with volar angulation: Qualifiers: Encounter type: initial encounter Qualified Code(s): S52.571A - Other intraarticular fracture of lower end o
[2023-02-17] MEDS: METOPROLOL TARTRATE 12.5 MG TABLET PO (09:26)
[2023-02-17] MEDS: AMIODARONE 150 MG/D5W 100 ML 150 MG/100 ML BAG 600 MG IV CONT (09:27)
[2023-02-17] MEDS: KCL 40 MEQ/WATER 100 ML 100 ML 25 ML IVPB (09:28)
[2023-02-17 09:49] LABS: Hematocrit 24.8 % (37.0-47.0); Hemoglobin 7.8 g/dL (12.0-15.0)
[2023-02-17 10:24] LABS: Iron < 10 ug/dL (37-170)
[2023-02-17 10:38] LABS: Percent Iron Saturation < 4 % (20-50)
[2023-02-17 10:56] LABS: Thyroid Stimulating Hormone Reflex 0.823 uIU/mL (0.465-4.68)
[2023-02-17 11:56] LABS: Glucose Point of Care 117 mg/dl (65-105)
--- NOTE | 2023-02-17 13:20 | PM.EVENT ---
Event Note Event Note Event Note: Discussed with Dr. Matthews from Cardiology and he recommends transfer to [facility] where patient received her cardiology care for evaluation by EP. Spoke to Dr. Echevarria with CCU at [facility] and discuss case with her. She has accepted the patient and patient will be transferred once bed is available. Discussed risks and benefits of transfer to [facility] with the patient and she verbalized understanding and is agreeable to transfer.
--- NOTE | 2023-02-17 13:43 | PM.TDS ---
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 Reason for consultation: icu admission Has provider been notified: Yes DS: Admitting Diagnosis Discharge Date Today Admitting Diagnosis Atrial fibrillation RVR Sepsis CLAUDIA on CKD Left arm cellulitis Transfer Discharge Sum: Med Medications Active and Home Medications: Home Medications acetaminophen 500 mg tablet (Tylenol Extra Strength) 1,000 mg PO Q6H PRN Pain (Scale Score 1-3) 04/02/22 [History Confirmed 02/11/23] omeprazole 20 mg capsule,delayed release 20 mg PO HS 04/10/22 [History Confirmed 02/11/23] linaclotide 145 mcg capsule (Linzess) 145 mcg PO DAILY PRN Constipation #90 caps 10/21/22 [Rx Confirmed 02/11/23] alendronate 70 mg tablet 70 mg PO WEEKLY #13 tabs 11/07/22 [Rx Confirmed 02/11/23] ezetimibe 10 mg tablet 10 mg PO DAILY #30 tabs 11/14/22 [Rx Confirmed 02/11/23] atorvastatin 80 mg tablet 80 mg PO DAILY #90 tabs 11/20/22 [Rx Confirmed 02/11/23] sertraline 100 mg tablet 50 mg PO DAILY #30 tabs 11/25/22 [Rx Confirmed 02/11/23] apixaban 5 mg tablet 5 mg PO BID 01/14/23 [History Confirmed 02/11/23] gabapentin 600 mg tablet 600 mg PO QID 02/02/23 [History Confirmed 02/11/23] ondansetron HCl 4 mg tablet 4 mg PO Q4H PRN Nausea And Vomiting 02/02/23 [History Confirmed 02/11/23] sotalol 80 mg tablet 40 mg PO BID #15 tabs 02/07/23 [Rx Confirmed 02/11/23] Active Medications Acetaminophen (Acetaminophen 500 Mg Tablet) 1,000 mg PO Q6H PRN PRN Reason: Pain (Scale Score 1-3) Last Admin: 02/17/23 02:36 Dose: 1,000 mg Alendronate Sodium (Alendronate Sodium 70 Mg Tablet) 70 mg PO We@0630 [facility] Last Admin: 02/12/23 05:43 Dose: 70 mg Apixaban (Apixaban 5 Mg Tablet) 5 mg PO BID [facility] Last Admin: 02/17/23 08:31 Dose: 5 mg Atorvastatin Calcium (Atorvastatin 40 Mg Tablet) 80 mg PO DAILY [facility] Last Admin: 02/17/23 08:31 Dose: 80 mg Dextrose (Dextrose 50% 25 Gm/50 Ml Syringe) 12.5 gm IV PUSH PRN PRN; Protocol PRN Reason: Hypoglycemia Diltiazem HCl (Diltiazem Hcl Cd 180 Mg Cap.24hr) 360 mg PO QAM [facility] Last Admin: 02/15/23 10:48 Dose: Not Given Ezetimibe (Ezetimibe 10 Mg Tablet) 10 mg PO DAILY [facility] Last Admin: 02/17/23 08:31 Dose: 10 mg Gabapentin (Gabapentin 300 Mg Capsule) 600 mg PO QID [facility] Last Admin: 02/15/23 14:48 Dose: Not Given Glucagon (Glucagon For Inj 1 Mg Vial) 1 mg IM PRN PRN; Protocol PRN Reason: Hypoglycemia Glucose (Glucose Oral Gel 15 Gm Of Glucse In 37.5 Gm Tube) 15 gm PO PRN PRN; Protocol PRN Reason: Hypoglycemia Ceftriaxone Sodium (Rocephin 2 Gm/Ns 100 Ml) 2 gm in 100 mls @ 200 mls/hr IVPB QAM [facility] Last Infusion: 02/17/23 09:01 Dose: Infused Vancomycin HCl (Vancomycin 1,500 Mg/D5w 500 Ml) 1,500 mg in 500 mls @ 250 mls/hr IVPB Q36H [facility] Last Admin: 02/17/23 04:39 Dose: 250 mls/hr Amiodarone HCl/Dextrose (Nexterone 360 Mg/D5w 200 Ml) 360 mg in 200 mls @ 33.333 mls/hr IV CONT .Q6H [facility] Last Admin: 02/17/23 09:26 Dose: 1 mg/min, 33.33 mls/hr Dextrose (Dextrose 5% 1,000 Ml) 1,000 mls @ 100 mls/hr IVPB PRN PRN; Protocol PRN Reason: Hypoglycemia Phenylephrine HCl 50 mg/ (Dextrose) 250 ml in 255 mls @ 0 mls/hr IV CONT .Q0M [facility]; Protocol Last Titration: 02/17/23 08:17 Dose: Infused Insulin Aspart (Insulin Aspart (*Bkc) 100 Units/Ml) 2 - 5 units SUB-Q TIDWM [facility]; Protocol Last Admin: 02/17/23 12:00 Dose: Not Given Lidocaine (Lidocaine 5% Patch) 3 patch TRANSDERM DAILY [facility] Last Admin: 02/15/23 10:49 Dose: 3 patch Linaclotide (Linaclotide 1
--- NOTE | 2023-02-17 14:47 | PC.NURSE ---
Spoke with [facility] at 1330. Bed available at this time.
--- NOTE | 2023-02-17 14:51 | PC.NURSE ---
Spoke with Yessica RN with [facility] CCU unit for report of patient. All questions answered and plan of care reviewed. Patient to transfer to [facility].
[2023-02-17 15:34] LABS: Basophils Percent Auto 0.3 % (0.2-1.2); Eosinophils Absolute Auto 0.1 K/mm3 (0-0.3); Hematocrit 25.6 % (37.0-47.0); Hematocrit 25.9 % (37.0-47.0); Hemoglobin 8.1 g/dL (12.0-15.0); Immature Granulocyte Absolute 0.04 K/mm3 (0.00-0.031); Immature Granulocyte Percent A 0.7 % (0-0.5); Lymphocytes Absolute Auto 0.59 K/mm3 (0.9-3.2); Lymphocytes Percent Auto 10.2 % (18.3-44.2); Mean Corpuscular HGB Conc 31.6 g/dl (32-36); Mean Corpuscular Hemoglobin 30.2 pg (26-34); Mean Corpuscular Volume 95.5 fl (80-100); Mean Platelet Volume 11.9 fl (7.4-10.4); Monocytes Absolute Auto 0.6 K/mm3 (0.1-0.6); Monocytes Percent Auto 9.8 % (2.6-8.5); Neutrophils Absolute Auto 4.5 K/mm3 (1.3-6.7); Platelet Count Result 212 k/mm3 (150-375); Red Blood Count 2.68 M/mm3 (4.2-5.4); Red Cell Distribution Width 13.1 % (11.5-14.5); White Blood Count 5.8 K/mm3 (4.5-10.0)
[2023-02-17 15:49] LABS: IFOB Positive Control Positive; Immunochemical Fecal Occult Bl Negative (N)
[2023-02-17 16:01] LABS: Glucose Point of Care 124 mg/dl (65-105)
== END 2023-02-17 16:25 | disposition short-term general hospital (02) | DRG 308 ==
LOC: ANHED 20:29 → ANHIMU 22:14 → ANHICU 02-15 15:24
PROVIDERS: Internal Medicine; Admitting Provider Family Medicine; Emergency Provider General Practice; PCP Family Medicine Adolescent Medicine; Visit Provider Hospitalist
DX: I48.19 Other persistent atrial fibrillation (principal); A41.02 Sepsis due to Methicillin resistant Staphylococcus aureus; J18.9 Pneumonia, unspecified organism; R65.20 Severe sepsis without septic shock; N17.9 Acute kidney failure, unspecified; N39.0 Urinary tract infection, site not specified; L03.114 Cellulitis of left upper limb; I95.9 Hypotension, unspecified; I42.2 Other hypertrophic cardiomyopathy; S52.571D Other intraarticular fracture of lower end of right radius, subsequent encounter for closed fracture with routine healing; D63.1 Anemia in chronic kidney disease; E11.22 Type 2 diabetes mellitus with diabetic chronic kidney disease; E78.00 Pure hypercholesterolemia, unspecified; F41.9 Anxiety disorder, unspecified; F32.A Depression, unspecified; I25.10 Atherosclerotic heart disease of native coronary artery without angina pectoris; I70.0 Atherosclerosis of aorta; I73.9 Peripheral vascular disease, unspecified; I25.2 Old myocardial infarction; K21.9 Gastro-esophageal reflux disease without esophagitis; K59.04 Chronic idiopathic constipation; M48.061 Spinal stenosis, lumbar region without neurogenic claudication; M81.0 Age-related osteoporosis without current pathological fracture; N18.31 Chronic kidney disease, stage 3a; R26.81 Unsteadiness on feet; Z20.822 Contact with and (suspected) exposure to COVID-19; Z79.01 Long term (current) use of anticoagulants; Z90.49 Acquired absence of other specified parts of digestive tract; Z95.1 Presence of aortocoronary bypass graft; Z96.651 Presence of right artificial knee joint; Z98.41 Cataract extraction status, right eye; Z98.42 Cataract extraction status, left eye; Z96.1 Presence of intraocular lens; Z86.718 Personal history of other venous thrombosis and embolism
CPT/HCPCS: 36415; 71045; 71046; 71250; 74176; 80048; 80053; 81001; 82274; 82550; 82728; 82948; 83540; 83550; 83605; 83690; 83735; 83880; 84145; 84443; 84484; 85014; 85018; 85025; 85027; 85610; 85730; 87040; 87081; 87086; 87088; 87147; 87181; 87186; 87636; 93005; 96361; 96365; 96366; 96367; 96376; 97161; 97165; 99285; A9270; C1751; C9113; G0378; J0282; J0696; J2371; J2704; J3370; J3475; J3480; J7030; J7040; J7060

== ENCOUNTER 2023-04-03 20:20 | Emergency (ER) | payer OTHER, MEDICAID, SELFPAY ==
--- NOTE | ~2023-04-03 | XR_ITS ---
EXAMINATION: XR wrist LT min 3V DATE: 04/03/2023 20:37 INDICATION: Left wrist pain, initial encounter TECHNIQUE: Posteroanterior, ulnar deviation, oblique, and lateral views of the left wrist were obtain ed. COMPARISON: None available FINDINGS: There is an acute, oblique intra-articular fracture at the dorsal aspect of the distal radi us. There is diffuse soft tissue swelling of the wrist. No additional fracture is identified. IMPRESSION: 1. Oblique intra-articular fracture of the distal radius. Reviewed, dictated and finalized at location F.
[2023-04-03 20:25] VITALS: BP 135/70; PULSE 68; RESP 14; TEMP 36.7; O2SAT 98
--- NOTE | 2023-04-03 21:09 | ED.GENADULT ---
HPI - General Adult General Chief complaint: Fall Stated complaint: fall, radial fx Time Seen by Provider: 04/03/23 20:21 History of Present Illness HPI narrative: Patient is a 77-year-old female who presents ER with left wrist pain. She was at [facility] today picking up some close to take back to [place] where she is currently getting some therapy. When she turned around to get her cane she lost her balance and fell down onto her left wrist. Subsequent imaging at the outside facility showed that there was a fracture so she was sent here for further evaluation. No numbness or tingling. Right wrist limited chronically. No EMS splint on the left wrist. Related Data Home Medications Medication Instructions Recorded Confirmed acetaminophen 500 mg tablet 1,000 mg PO Q6H PRN Pain (Scale 04/02/22 02/11/23 (Tylenol Extra Strength) Score 1-3) omeprazole 20 mg capsule,delayed 20 mg PO HS 04/10/22 02/11/23 release apixaban 5 mg tablet 5 mg PO BID 01/14/23 02/11/23 gabapentin 600 mg tablet 600 mg PO QID 02/02/23 02/11/23 ondansetron HCl 4 mg tablet 4 mg PO Q4H PRN Nausea And Vomiting 02/02/23 02/11/23 Allergies Allergy/AdvReac Type Severity Reaction Status Date / Time codeine Allergy Unknown Anaphylaxis Verified 02/02/23 00:04 Latex, Natural Rubber Allergy Unknown SKIN Verified 02/02/23 00:04 IRRITATION nitroglycerin AdvReac Severe Hypotension Verified 02/02/23 00:04 tramadol AdvReac Mild Nausea and Verified 02/02/23 00:04 Vomiting, HEADACHE, DIZZINESS Review of Systems Musculoskeletal: Musculoskeletal: Reports arthralgias, Reports joint swelling and Denies muscle cramps Integumentary/Breasts: Skin/Breast: Denies erythema and Denies rash [facility] Past Medical History Medical History Atherosclerotic heart disease of [place] coronary artery without angina pectoris Benign positional vertigo Cardiorenal syndrome with renal failure Chronic idiopathic constipation Chronic kidney disease, stage 3a Chronic lower back pain Compression fracture of thoracic spine, non-traumatic T11 2018 Diverticulitis With history of perforation DVT (deep venous thrombosis) Distant past Gastro-esophageal reflux disease without esophagitis Hyperlipidemia Hypertrophic cardiomyopathy Apical variant noted on cardiac MRI 08/22/2022 Intra-articular fracture of distal end of right radius with volar angulation Close reduction January 2023 Lumbar spinal stenosis Occlusion and stenosis of bilateral carotid arteries Osteoporosis Pancreatic cyst Paroxysmal A-fib With synchronized cardioversion 01/24/2023 Surgical History Surgical History History of bowel resection (~1992) Due to prior bowel perforation History of cholecystectomy History of lumbar surgery (~1998) Lumbar diskectomy History of total right knee replacement (~2017) S/P CABG x 2 (2012) LAWSON to LAD and saphenous vein graft to obtuse marginal Status post cataract extraction of both eyes with insertion of intraocular lens Family History Family History Father Malignant neoplasm of prostate Mother Alzheimer's dementia Sibling Alzheimer's dementia Social History Social History Social History: Patient lives in [facility]. She ambulates with a walker. She has 3 sons. And 4 grandchildren.. She denies having a pet. She was and her last Jul 2020 from recurrent polio infection and acute brain bleed. Code status: The patient initially stated she wanted be a DNR DNI. However her son stated that he wanted to give her every chance for recovery that is possible. After discussion of risks and benefits the son still requests the patient be a full code. The patient verbalized that she would not want to be on a
[2023-04-03 22:00] VITALS: BP 109/52; PULSE 70; RESP 14; O2SAT 100
== END 2023-04-03 22:05 ==
PROVIDERS: Emergency Provider Emergency Medicine; PCP Family Medicine Adolescent Medicine
DX: S52.572A Other intraarticular fracture of lower end of left radius, initial encounter for closed fracture (principal); I48.0 Paroxysmal atrial fibrillation; I25.10 Atherosclerotic heart disease of native coronary artery without angina pectoris; I42.2 Other hypertrophic cardiomyopathy; I65.23 Occlusion and stenosis of bilateral carotid arteries; I13.10 Hypertensive heart and chronic kidney disease without heart failure, with stage 1 through stage 4 chronic kidney disease, or unspecified chronic kidney disease; N18.31 Chronic kidney disease, stage 3a; M81.0 Age-related osteoporosis without current pathological fracture; K21.9 Gastro-esophageal reflux disease without esophagitis; K59.04 Chronic idiopathic constipation; Z86.718 Personal history of other venous thrombosis and embolism; Z95.1 Presence of aortocoronary bypass graft; Z96.651 Presence of right artificial knee joint; Z98.42 Cataract extraction status, left eye; Z98.41 Cataract extraction status, right eye; Z96.1 Presence of intraocular lens; Z90.49 Acquired absence of other specified parts of digestive tract; Z77.22 Contact with and (suspected) exposure to environmental tobacco smoke (acute) (chronic); W18.39XA Other fall on same level, initial encounter
CPT/HCPCS: 29125; 73110; 99284; A4565

== ENCOUNTER 2023-04-08 08:44 | Emergency (ER) | payer OTHER, MEDICAID, SELFPAY ==
[2023-04-08] VITALS (20 sets, daily range): BP systolic 134–167; BP diastolic 60–72; PULSE 61–70; RESP 10–20; TEMP 36.4–36.8; O2SAT 95–100
--- NOTE | ~2023-04-08 | XR_ITS ---
XR hip RT 2V w AP pelvis 04/08/2023 10:10 Indication: Right hip pain Procedure: AP pelvis and 2 views right hip Comparison: 08/24/2013 Findings: There is progression of severe osteoarthritis the right hip. There is remodeling of the rig ht femoral head. Pelvic rings are intact. There is mild osteoarthritis of the left hip. There is vasc ular calcifications in the femoral locations. Impression: 1: Interval progression of severe osteoarthritis of the right hip. Reviewed, dictated and finalized at location L. Impression: 1: Interval progression of severe osteoarthritis of the right hip.
--- NOTE | ~2023-04-08 | XR_ITS ---
XR lumbar spine 2-3V 04/08/2023 10:10 Indication: Low back pain Procedure: 3 views lumbar spine Comparison: 10/16/2017 Findings: There is wedge compression fracture of T11 and mild superior endplate compression deformity of T12, age indeterminate. There is disc narrowing and endplate degenerative change at all lumbar le vels. There is grade 1 degenerative spondylolisthesis at L4-5. There is atherosclerosis. There is dex troscoliosis. Pedicles intact. Impression: 1: Age-indeterminate compression deformities of T11 and T12. 2: Severe lumbar spondylosis with dextroscoliosis. Reviewed, dictated and finalized at location L. Impression: 1: Age-indeterminate compression deformities of T11 and T12. 2: Severe lumbar spondylosis with dextroscoliosis.
[2023-04-08 09:07] LABS: Basophils Absolute Auto 0.1 K/mm3 (0.0-0.1); Basophils Percent Auto 1.5 % (0.2-1.2); Eosinophils Absolute Auto 0.5 K/mm3 (0-0.3); Eosinophils Percent Auto 10.1 % (0-4.4); Hematocrit 24.4 % (37.0-47.0); Hemoglobin 7.3 g/dL (12.0-15.0); Immature Granulocyte Absolute 0.02 K/mm3 (0.00-0.031); Immature Granulocyte Percent A 0.4 % (0-0.5); Lymphocytes Absolute Auto 1.08 K/mm3 (0.9-3.2); Lymphocytes Percent Auto 23.2 % (18.3-44.2); Mean Corpuscular HGB Conc 29.9 g/dl (32-36); Mean Corpuscular Hemoglobin 29.3 pg (26-34); Mean Platelet Volume 11.2 fl (7.4-10.4); Monocytes Absolute Auto 0.5 K/mm3 (0.1-0.6); Monocytes Percent Auto 11.2 % (2.6-8.5); Neutrophils Absolute Auto 2.5 K/mm3 (1.3-6.7); Neutrophils Percent Auto 53.6 % (45.5-73.1); Platelet Count Result 210 k/mm3 (150-375); Red Blood Count 2.49 M/mm3 (4.2-5.4); Red Cell Distribution Width 19.2 % (11.5-14.5); White Blood Count 4.7 K/mm3 (4.5-10.0)
[2023-04-08 09:17] LABS: Anisocytosis 1+ (NORMAL); Hypochromasia 1+ (NORMAL); INR 1.9; Platelet Estimate Adequate (Adequate); Prothrombin Time 22.5 Seconds (11.1-14.7); Schistocytes None Seen (NORMAL)
[2023-04-08 09:19] LABS: Partial Thromboplastin Time 51.6 SECONDS (22.3-36.8)
[2023-04-08 09:32] LABS: Alanine Aminotransferase 40 U/L (6-35); Albumin Level 3.7 g/dL (3.5-5.1); Alkaline Phosphatase 69 U/L (38-126); Anion Gap 7 mmol/L (8-16); Aspartate Amino Transferase 51 U/L (14-36); Bilirubin,Total 0.8 mg/dL (0.2-1.3); Blood Urea Nitrogen 30 mg/dL (7-17); Calcium 9.7 mg/dL (8.4-10.2); Carbon Dioxide 29 mmol/L (22-30); Chloride 102 mmol/L (98-107); Estimated CRCL calculation 24 ml/min; Estimated Glomerular Filt Rate 27; Glucose 92 mg/dL (65-110); Potassium 3.4 mmol/L (3.4-5.0); Sodium 138 mmol/L (137-145)
--- NOTE | 2023-04-08 09:41 | ED.GENADULT ---
HPI - General Adult General Chief complaint: Recheck/Abnormal Lab/Rx Stated complaint: low hgb, low back pain Time Seen by Provider: 04/08/23 08:51 History of Present Illness HPI narrative: 77-year-old female present emergency department for evaluation of low hemoglobin. Patient was at a local care facility and had labs drawn and was found to have a hemoglobin of 6.9. Patient was referred to the emergency department for further work-up. Patient's hemoglobin here is 7.3. Patient does complain of low back pain and right hip pain related to an exacerbation of her chronic pain from when she was being moved at her care facility. Related Data Home Medications Medication Instructions Recorded Confirmed acetaminophen 500 mg tablet 1,000 mg PO Q6H PRN Pain (Scale 04/02/22 02/11/23 (Tylenol Extra Strength) Score 1-3) omeprazole 20 mg capsule,delayed 20 mg PO HS 04/10/22 02/11/23 release apixaban 5 mg tablet 5 mg PO BID 01/14/23 02/11/23 gabapentin 600 mg tablet 600 mg PO QID 02/02/23 02/11/23 ondansetron HCl 4 mg tablet 4 mg PO Q4H PRN Nausea And Vomiting 02/02/23 02/11/23 Allergies Allergy/AdvReac Type Severity Reaction Status Date / Time codeine Allergy Unknown Anaphylaxis Verified 02/02/23 00:04 Latex, Natural Rubber Allergy Unknown SKIN Verified 02/02/23 00:04 IRRITATION nitroglycerin AdvReac Severe Hypotension Verified 02/02/23 00:04 tramadol AdvReac Mild Nausea and Verified 02/02/23 00:04 Vomiting, HEADACHE, DIZZINESS Review of Systems Review of Systems: All systems reviewed & are unremarkable except as noted in HPI and below [facility] Past Medical History Medical History Atherosclerotic heart disease of [place] coronary artery without angina pectoris Benign positional vertigo Cardiorenal syndrome with renal failure Chronic idiopathic constipation Chronic kidney disease, stage 3a Chronic lower back pain Compression fracture of thoracic spine, non-traumatic T11 2017 Diverticulitis With history of perforation DVT (deep venous thrombosis) Distant past Gastro-esophageal reflux disease without esophagitis Hyperlipidemia Hypertrophic cardiomyopathy Apical variant noted on cardiac MRI 08/22/2022 Intra-articular fracture of distal end of right radius with volar angulation Close reduction January 2023 Lumbar spinal stenosis Occlusion and stenosis of bilateral carotid arteries Osteoporosis Pancreatic cyst Paroxysmal A-fib With synchronized cardioversion 01/24/2023 Surgical History Surgical History History of bowel resection (~1992) Due to prior bowel perforation History of cholecystectomy History of lumbar surgery (~1998) Lumbar diskectomy History of total right knee replacement (~2017) S/P CABG x 2 (2012) LAWSON to LAD and saphenous vein graft to obtuse marginal Status post cataract extraction of both eyes with insertion of intraocular lens Family History Family History Father Malignant neoplasm of prostate Mother Alzheimer's dementia Sibling Alzheimer's dementia Social History Social History Social History: Patient lives in [facility]. She ambulates with a walker. She has 3 sons. And 4 grandchildren.. She denies having a pet. She was and her last Jul 2020 from recurrent polio infection and acute brain bleed. Code status: The patient initially stated she wanted be a DNR DNI. However her son stated that he wanted to give her every chance for recovery that is possible. After discussion of risks and benefits the son still requests the patient be a full code. The patient verbalized that she would not want to be on a ventilator long-term and would not want a tracheostomy are PEG. She reports that she wants all 3 of her sons to share in
[2023-04-08] MEDS: PANTOPRAZOLE SODIUM IV 40 MG VIAL IV PUSH (10:17)
[2023-04-08] MEDS: TUBING, BLOOD SET 1 EACH XX (10:18)
[2023-04-08] MEDS: SODIUM CHLORIDE 0.9% IV 250 ML 30 ML IV CONT (10:18)
== END 2023-04-08 12:59 | disposition left against medical advice (07) ==
PROVIDERS: Emergency Provider Emergency Medicine; PCP Family Medicine Adolescent Medicine
DX: K92.2 Gastrointestinal hemorrhage, unspecified (principal); D64.9 Anemia, unspecified; I25.10 Atherosclerotic heart disease of native coronary artery without angina pectoris; I13.10 Hypertensive heart and chronic kidney disease without heart failure, with stage 1 through stage 4 chronic kidney disease, or unspecified chronic kidney disease; N18.31 Chronic kidney disease, stage 3a; M54.50 Low back pain, unspecified; G89.29 Other chronic pain
CPT/HCPCS: 36415; 36430; 72100; 73502; 80053; 85025; 85610; 85730; 86850; 86900; 86901; 86920; 96361; 96374; 99285; C9113; J7050; P9016

== ENCOUNTER 2023-04-15 08:40 | Inpatient (IN) | payer OTHER, MEDICAID, SELFPAY ==
[2023-04-15] VITALS (95 sets, daily range): BP systolic 82–146; BP diastolic 54–97; PULSE 96–140; RESP 11–23; TEMP 36.1–36.4; O2SAT 95–100; BMI 28.8
--- NOTE | ~2023-04-15 | XR_ITS ---
EXAMINATION: XR chest 1V portable DATE: 04/15/2023 09:36 INDICATION: Tachycardia. TECHNIQUE: A single frontal view of the chest was obtained. COMPARISON: Chest single view 02/15/2023 FINDINGS: There is mild atelectasis in left mid and lower lung zones. No pleural effusion or pneumoth orax. The heart size is normal. Median sternotomy wires and mediastinal surgical clips are seen, like ly from prior coronary artery bypass grafting. There are surgical clips in the abdomen. IMPRESSION: 1. Mild atelectasis in left mid and lower lung zones. Reviewed, dictated and finalized at location E.
--- NOTE | ~2023-04-15 | XR_ITS ---
EXAMINATION: XR hip LT min 3V w AP pelvis DATE: 04/16/2023 13:47 INDICATION: Hematoma at the left hip. TECHNIQUE: Anteroposterior view of the pelvis and anteroposterior, frog leg and cross-table lateral v iews of the left hip were obtained. COMPARISON: None. FINDINGS: Mild lumbar dextrocurvature with moderate spondylosis. No traumatic malalignment. No fracture. Severe osteoarthritis at the right hip. Mild osteoarthritis at the left hip and bilateral sacroiliac joints . Surgical clips in the left lower quadrant and at the medial proximal left thigh. Mild stranding in the subcutaneous fat overlying the left greater trochanter which given the provided history of hemato ma likely represents a soft tissue contusion. IMPRESSION: 1. Mild left hip osteoarthritis. No acute osseous abnormality. 2. Severe osteoarthritis at the right hip. Reviewed, dictated and finalized at location A.
--- NOTE | 2023-04-15 08:46 | ECG_ITS ---
Measurements Intervals [place] Rate: 146 P: [place]: 0 QRS: -29 QRSD: 118 T: 122 QT: 326 QTc: 509 Interpretive Statements ATRIAL FIBRILLATION WITH RAPID VENTRICULAR RESPONSE BORDERLINE LEFT AXIS DEVIATION [QRS AXIS < -20] POSSIBLE LEFT VENTRICULAR HYPERTROPHY [VOLTAGE CRITERIA PLUS LAE OR QRS WIDENING] ST DEVIATION AND MODERATE T-WAVE ABNORMALITY, CONSIDER LATERAL ISCHEMIA [-0.1+ mV T WAVE IN I/aVL/V5/V6] COMPARED TO ECG 02/17/2023 10:20:36 VENTRICULAR RATE IS FASTER NOW Electronically Signed On 04-15-2023 11:42:26 CDT by Yaneli Perry M.D.
[2023-04-15 09:03] LABS: Basophils Absolute Auto 0.1 K/mm3 (0.0-0.1); Basophils Percent Auto 0.9 % (0.2-1.2); Eosinophils Absolute Auto 0.1 K/mm3 (0-0.3); Eosinophils Percent Auto 1.3 % (0-4.4); Hematocrit 35.1 % (37.0-47.0); Immature Granulocyte Absolute 0.01 K/mm3 (0.00-0.031); Immature Granulocyte Percent A 0.2 % (0-0.5); Lymphocytes Absolute Auto 1.09 K/mm3 (0.9-3.2); Lymphocytes Percent Auto 19.9 % (18.3-44.2); Mean Corpuscular HGB Conc 31.3 g/dl (32-36); Mean Corpuscular Hemoglobin 29.1 pg (26-34); Mean Corpuscular Volume 92.9 fl (80-100); Mean Platelet Volume 10.7 fl (7.4-10.4); Monocytes Absolute Auto 0.5 K/mm3 (0.1-0.6); Monocytes Percent Auto 8.4 % (2.6-8.5); Neutrophils Absolute Auto 3.8 K/mm3 (1.3-6.7); Neutrophils Percent Auto 69.3 % (45.5-73.1); Platelet Count Result 296 k/mm3 (150-375); Red Blood Count 3.78 M/mm3 (4.2-5.4); Red Cell Distribution Width 19.6 % (11.5-14.5); White Blood Count 5.5 K/mm3 (4.5-10.0)
[2023-04-15 09:15] LABS: Alanine Aminotransferase 52 U/L (6-35); Albumin Level 3.8 g/dL (3.5-5.1); Alkaline Phosphatase 90 U/L (38-126); Anion Gap 9 mmol/L (8-16); Aspartate Amino Transferase 71 U/L (14-36); Bilirubin,Total 1.1 mg/dL (0.2-1.3); Blood Urea Nitrogen 18 mg/dL (7-17); Calcium 9.9 mg/dL (8.4-10.2); Carbon Dioxide 26 mmol/L (22-30); Chloride 101 mmol/L (98-107); Estimated CRCL calculation 32 ml/min; Estimated Glomerular Filt Rate 40; Glucose 113 mg/dL (65-110); Lipase 216 U/L (23-300); Potassium 3.5 mmol/L (3.4-5.0); Sodium 136 mmol/L (137-145)
[2023-04-15 09:17] LABS: Prothrombin Time 13.4 Seconds (11.1-14.7)
[2023-04-15 09:18] LABS: Partial Thromboplastin Time 37.7 SECONDS (22.3-36.8)
[2023-04-15] MEDS: AMIODARONE 150 MG/D5W 100 ML 150 MG/100 ML BAG 600 MG IV CONT (09:32)
[2023-04-15] MEDS: SODIUM CHLORIDE 0.9% IV 500 ML 999 ML IV CONT (09:39)
[2023-04-15] MEDS: ASPIRIN 81 MG CHEWABLE TABLET 324 MG PO (09:39)
[2023-04-15] MEDS: AMIODARONE 360 MG/D5W 200 ML 360 MG/200 ML BAG 33.33 MG IV CONT (09:55)
--- NOTE | 2023-04-15 10:58 | ECG_ITS ---
Measurements Intervals [place] Rate: 104 P: [place]: 0 QRS: -28 QRSD: 119 T: 158 QT: 375 QTc: 494 Interpretive Statements ATRIAL FIBRILLATION WITH RAPID VENTRICULAR RESPONSE POSSIBLE LEFT VENTRICULAR HYPERTROPHY [VOLTAGE CRITERIA PLUS LAE OR QRS WIDENING] ST DEVIATION AND MODERATE T-WAVE ABNORMALITY, CONSIDER LATERAL ISCHEMIA [-0.1+ mV T WAVE IN I/aVL/V5/V6] COMPARED TO ECG 04/15/2023 08:50:35 VENTRICULAR RATE IS SLOWER NOW Electronically Signed On 04-15-2023 11:43:51 CDT by Yaneli Perry M.D.
--- NOTE | 2023-04-15 12:06 | ED.ARRPALP ---
HPI - Arrhythmia/Palpitations General Chief Complaint: Arrhythmia/Palpitations Stated Complaint: tachycardic @ PT, blood transf 2 days ago Time Seen by Provider: 04/15/23 09:01 History of Present Illness HPI narrative: Patient is a 77-year-old female who presents ER with elevated heart rate. Patient recently was at [facility] with difficult to control atrial fibrillation. She has not taken her rate control medications this morning. Her blood pressure is in the 90s. She has no chest pain or chest pressure. No shortness of breath. She does report that she feels weak and dizzy. No alleviating factors. Related Data Home Medications Medication Instructions Recorded Confirmed acetaminophen 500 mg tablet 1,000 mg PO Q6H PRN Pain (Scale 04/02/22 04/15/23 (Tylenol Extra Strength) Score 1-3) ondansetron HCl 4 mg tablet 4 mg PO Q8H PRN Nausea And Vomiting 02/02/23 04/15/23 amiodarone 200 mg tablet 400 mg PO DAILY 04/15/23 04/15/23 atorvastatin 80 mg tablet 80 mg PO HS 04/15/23 04/15/23 bisacodyl 10 mg rectal suppository 10 mg RECTAL DAILY PRN Constipation 04/15/23 04/15/23 (Dulcolax (bisacodyl)) calcium carbonate 500 mg-vitamin 1 tablet PO DAILY 04/15/23 04/15/23 D3 5 mcg (200 unit) tablet (Oyster Shell Calcium-Vitamin D3) cholecalciferol (vitamin D3) 25 25 mcg PO DAILY 04/15/23 04/15/23 mcg (1,000 unit) tablet cyanocobalamin (vitamin B-12) 2,000 mcg PO DAILY 04/15/23 04/15/23 1,000 mcg tablet diclofenac sodium 1 % topical gel 2 g topical TID 04/15/23 04/15/23 furosemide 20 mg tablet 20 mg PO DAILY 04/15/23 04/15/23 gabapentin 100 mg capsule 200 mg PO TID 04/15/23 04/15/23 metoprolol succinate 25 mg 25 mg PO DAILY 04/15/23 04/15/23 tablet,extended release 24 hr metoprolol tartrate 25 mg tablet 25 mg PO DAILY PRN Hypertension 04/15/23 04/15/23 pantoprazole 40 mg tablet,delayed 40 mg PO QAM 04/15/23 04/15/23 release sertraline 50 mg tablet 50 mg PO DAILY 04/15/23 04/15/23 Allergies Allergy/AdvReac Type Severity Reaction Status Date / Time codeine Allergy Unknown Anaphylaxis Verified 04/15/23 13:11 Latex, Natural Rubber Allergy Unknown SKIN Verified 04/15/23 13:11 IRRITATION nitroglycerin AdvReac Severe Hypotension Verified 04/15/23 13:11 tramadol AdvReac Mild Nausea and Verified 04/15/23 13:11 Vomiting, HEADACHE, DIZZINESS Review of Systems Review of Systems: All systems reviewed & are unremarkable except as noted in HPI and below Constitutional: Constitutional: Denies chills, Reports fatigue and Denies fever(s) ENT: Denies nasal congestion and Denies sore throat Cardiovascular: Cardiovascular: Denies chest pain, Reports rapid heart rate and Denies radiating jaw, neck or arm pain Respiratory: Respiratory: Denies cough and Denies dyspnea Gastrointestinal: Gastrointestinal: Denies abdominal pain, Denies nausea and Denies vomiting Neurologic: Reports system reviewed and no additional complaints, except as documented PMFSH Past Medical History Medical History Atherosclerotic heart disease of [place] coronary artery without angina pectoris Benign positional vertigo Cardiorenal syndrome with renal failure Chronic idiopathic constipation Chronic kidney disease, stage 3a Chronic lower back pain Compression fracture of thoracic spine, non-traumatic T11 2018 Diverticulitis With history of perforation DVT (deep venous thrombosis) Distant past Gastro-esophageal reflux disease without esophagitis Hyperlipidemia Hypertrophic cardiomyopathy Apical variant noted on cardiac MRI 08/22/2022 Intra-articular fracture of distal end of right radius with volar angulation Close reduction January 2023 Lumbar spinal stenosis Occlusion and stenosis of bilateral carotid arteries Osteoporosis Pancreatic cyst Paroxysmal A-fib With synchronized cardioversion 01/24/2023 Surgical History Surgical History H
[2023-04-15 12:24] LABS: Troponin I 0.031 ng/mL (0.000-0.034)
--- NOTE | 2023-04-15 13:15 | ADMGEN ---
This patient, Tiera Lobato, was admitted to [facility]. Patient/family oriented to hospital policies and general routines including ID bracelet, bed and alarms, visiting hours, pain management, procedures, bathroom and other care routines, personal items, smoking policy, room service/diet, and visiting hours. Information on how to activate the Rapid Response Team has been discussed. Patient/Family are encouraged to report perceived risks to care and to ask questions if they do not understand what they are told or what they should do.
--- NOTE | 2023-04-15 14:27 | PM.IMHP ---
H&P: HPI History of Present Illness Date/Time: 04/15/23 14:25 Chief Complaint: Elevated heart rate. Narrative: This is a 77-year-old female with history of DVT, hypertension, hyperlipidemia, paroxysmal atrial fibrillation, coronary artery disease status post coronary artery bypass grafting, hypertrophic cardiomyopathy, chronic kidney disease, and anemia presented to the emergency department via EMS from [place] for evaluation of an elevated heart rate. She is known to the hospitalist from fairly recent admissions. Initially hospitalized with a right radial fracture on 02/06/2023 and she was readmitted on 02/13/2023 for sepsis, MRSA bacteremia, left arm cellulitis, and atrial fibrillation with rapid ventricular response. Heart rate was difficult to control on IV diltiazem drip and she was transitioned to an amiodarone drip and underwent successful cardioversion on 02/16/2023 though several hours thereafter she was back into atrial fibrillation with rapid ventricular response. Ultimately she was transferred to [facility] for consultation with electrophysiology and consideration for possible ablation. She remained at that facility for just over 1 month and was discharged on 03/21/2023 on amiodarone 400 mg p.o. daily and metoprolol ER 25 mg daily in addition to metoprolol tartrate 25 mg prior to PT to prevent atrial fibrillation. She had issues with orthostatic hypotension at that time as well and was started on low-dose midodrine. The last several days she has been complaining of lightheadedness and dizziness with therapy and today she was found to have heart rates in the 150s for which she was directed to the ED. She was once again found to be in atrial fibrillation with rapid ventricular response and she was given a dose of IV diltiazem 10 mg x 1 without much change in her rate and a drop in blood pressure. She has since been started on an amiodarone drip with improvement. Her labs are stable compared to recent testing. Initial troponin was well within normal limits. Chest x-ray showed mild atelectasis. She is being admitted in this setting for further treatment of rapid atrial fibrillation. EKG did not show any acute ST segment changes compared to prior tracings. Review of Systems Review of Systems: Twelve systems were reviewed. No fever, chills, or sweats. She has been fatigued recently however planes that on her recent, lengthy hospitalizations. She does get lightheaded and dizzy, mainly with standing, for which she is now on midodrine for orthostasis. She is not currently on anticoagulation for her atrial fibrillation as that was stopped a couple of months ago due to anemia requiring blood transfusion. She denies palpitations and sensations of racing heart. No chest pain, pleuritic pain, or shortness of breath. Appetite has been fair but she is hungry now. No nausea, vomiting, diarrhea, or dysuria. Except as documented, all other systems were reviewed and are negative. [facility] Past Medical History Medical History Benign positional vertigo Cardiorenal syndrome with renal failure Chronic anemia Chronic idiopathic constipation Chronic kidney disease Chronic lower back pain Compression fracture of thoracic spine, non-traumatic (2017) T11 Coronary artery disease Deep venous thrombosis 1960s Diverticulitis With history of perforation Gastro-esophageal reflux disease without esophagitis Hyperlipidemia Hypertrophic cardiomyopathy Apical variant noted on cardiac MRI 08/22/2022 Intra-articular fracture of distal end of right radius with volar angulation Close reduction January 2023 Lumbar spinal stenosis Occlusion and stenosis of bilateral carotid arteries Osteoporosis Pancreatic cyst Paroxysmal atrial fibrillation History of cardioversion in January 2023 Surgical History Surgical History (Updated 04/15/23 @ 14:35 by Mónica Reddy PA-C) History of bowel resection (1992) Due to p
[2023-04-15] MEDS: AMIODARONE 360 MG/D5W 200 ML 360 MG/200 ML BAG 16.67 MG IV CONT (15:58)
[2023-04-15] MEDS: SODIUM CHLORIDE 0.9% IV 1,000 ML 125 ML IV CONT (15:58)
[2023-04-15] MEDS: DICLOFENAC SODIUM 1% 100 GM GEL (*BKC) 1 APPLIC TOPICAL (19:57)
[2023-04-15] MEDS: GABAPENTIN 100 MG CAPSULE 200 MG PO (19:57)
[2023-04-15] MEDS: ATORVASTATIN 40 MG TABLET 80 MG PO (21:00)
--- NOTE | 2023-04-15 21:22 | ADMGEN ---
This patient, Tiera Lobato, was admitted to IMU Room 203-01. Patient/family oriented to hospital policies and general routines including ID bracelet, bed and alarms, visiting hours, pain management, procedures, bathroom and other care routines, personal items, smoking policy, room service/diet, and visiting hours. Information on how to activate the Rapid Response Team has been discussed. Patient/Family are encouraged to report perceived risks to care and to ask questions if they do not understand what they are told or what they should do.
[2023-04-16] VITALS (21 sets, daily range): BP systolic 92–126; BP diastolic 40–77; PULSE 60–120; RESP 14–20; TEMP 36.2–36.6; O2SAT 98–100; BMI 28.8
[2023-04-16] MEDS: ACETAMINOPHEN 325 MG TABLET 650 MG PO ×2 (04:51→11:59)
[2023-04-16] MEDS: AMIODARONE 360 MG/D5W 200 ML 360 MG/200 ML BAG 16.67 MG IV CONT (04:53)
[2023-04-16 04:59] LABS: Hematocrit 35.2 % (37.0-47.0); Mean Corpuscular HGB Conc 31.3 g/dl (32-36); Mean Corpuscular Hemoglobin 28.9 pg (26-34); Mean Corpuscular Volume 92.4 fl (80-100); Mean Platelet Volume 11.8 fl (7.4-10.4); Platelet Count Result 284 k/mm3 (150-375); Red Blood Count 3.81 M/mm3 (4.2-5.4); Red Cell Distribution Width 19.5 % (11.5-14.5); White Blood Count 4.8 K/mm3 (4.5-10.0)
[2023-04-16 05:07] LABS: Alanine Aminotransferase 58 U/L (6-35); Albumin Level 3.2 g/dL (3.5-5.1); Alkaline Phosphatase 85 U/L (38-126); Anion Gap 5 mmol/L (8-16); Aspartate Amino Transferase 72 U/L (14-36); Bilirubin,Total 0.7 mg/dL (0.2-1.3); Blood Urea Nitrogen 14 mg/dL (7-17); Calcium 9.4 mg/dL (8.4-10.2); Carbon Dioxide 26 mmol/L (22-30); Chloride 105 mmol/L (98-107); Estimated CRCL calculation 42 ml/min; Estimated Glomerular Filt Rate 54; Glucose 99 mg/dL (65-110); Magnesium 1.4 mg/dL (1.6-2.3); Potassium 3.1 mmol/L (3.4-5.0); Sodium 136 mmol/L (137-145)
[2023-04-16] MEDS: METOPROLOL SUCCINATE EXT REL 25 MG TABCR PO ×2 (08:58→11:01)
[2023-04-16] MEDS: CYANOCOBALAMIN 1,000 MCG TABLET 2000 MCG PO (09:00)
[2023-04-16] MEDS: SERTRALINE HCL 50 MG TABLET PO (09:01)
[2023-04-16] MEDS: PANTOPRAZOLE 40 MG TABLET PO ×2 (09:02→21:35)
[2023-04-16] MEDS: CHOLECALCIFEROL 1,000 UNITS TABLET 1000 UNITS PO (09:02)
[2023-04-16] MEDS: FUROSEMIDE 20 MG TABLET PO (09:03)
[2023-04-16] MEDS: ENOXAPARIN 40 MG/0.4 ML SYRINGE SUB-Q (09:05)
[2023-04-16] MEDS: GABAPENTIN 100 MG CAPSULE 200 MG PO ×3 (09:10→17:19)
[2023-04-16] MEDS: EZETIMIBE 10 MG TABLET PO (10:58)
[2023-04-16] MEDS: DICLOFENAC SODIUM 1% 100 GM GEL (*BKC) 1 APPLIC TOPICAL ×3 (10:59→21:36)
--- NOTE | 2023-04-16 11:10 | PM.CNCAR ---
Assessment and Plan Assessment and plan (1) Atrial fibrillation with RVR: Code(s): I48.91 - Unspecified atrial fibrillation Status: Acute Assessment and Plan: Heart rates have improved with Amiodarone drip. At this time, recommend to continue Amiodarone drip. She has been tolerating Metoprolol 25mg QD, will see if she can tolerate 50mg QD for additional rate control. Discussed the plan with patient and her son, who are agreeable to the plan. Patient's son states that he prefers patient get transferred to [place] if we have issues controlling her atrial fibrillation, which I agree with as we do not have Electrophysiology here at [facility]. Patient has been off anticoagulation the past month due to issues with anemia. Hgb is currently at 11. Recommend to restart anticoagulation if no bleeding issues and close monitor of her Hgb levels. Recommendations/Plan discussed with Hospitalist, Dr. Vo. History of Present Illness History of Present Illness Consult date/time: 04/16/23 11:10 Requesting physician: Matthew Field MD Consult reason: atrial fibrillation Reason For Visit: Afib RVR Narrative: We are consulted for atrial fibrillation with RVR. This is a 77 year old female with paroxysmal atrial fibrillation that has been difficult to control, orthostatic hypotension, anemia, CAD s/p CABG, apical hypertrophic cardiomyopathy, hypertension, hyperlipidemia, chronic kidney disease. Patient's primary city alderman is Dr. Stafford at [facility]. Patient was here at [facility] in February 2023 with difficult to control atrial fibrillation and ended up getting transferred to [facility] for further management. Patient had a long stay at [facility] and was admitted from 02/17/2023 to 03/21/2023 (discharge summary scanned in [facility] chart and was personally reviewed). She was discharged on Amiodarone 400mg QD, Metoprolol 25QD and PRN Metoprolol before PT to prevent AFIB (hold for only HR less than 55bpm). The past few days, patient has had symptoms of lightheadedness/dizziness with therapy and was found with HR in the 150s for which she was sent to the ED for. In the ER, she was given Diltiazem 10mg IV x 1 without much change in her heart rate, however, her blood pressure dropped with it. She was then started on Amiodarone drip with improvement. This morning, patient reports she feels okay sitting in bed without lightheadedness/dizziness. Of note, patient has not been on anticoagulation for the past month due to issues with her anemia. Review of Systems Review of Systems: All systems reviewed & are unremarkable except as noted in HPI and below (HPI) [facility] Past Medical History Medical History Benign positional vertigo Cardiorenal syndrome with renal failure Chronic anemia Chronic idiopathic constipation Chronic kidney disease Chronic lower back pain Compression fracture of thoracic spine, non-traumatic (2018) T11 Coronary artery disease Deep venous thrombosis 1960s Diverticulitis With history of perforation Gastro-esophageal reflux disease without esophagitis Hyperlipidemia Hypertrophic cardiomyopathy Apical variant noted on cardiac MRI 08/22/2022 Intra-articular fracture of distal end of right radius with volar angulation Close reduction January 2023 Lumbar spinal stenosis Occlusion and stenosis of bilateral carotid arteries Osteoporosis Pancreatic cyst Paroxysmal atrial fibrillation History of cardioversion in January 2023 Surgical History Surgical History History of bowel resection (1992) Due to prior bowel perforation History of cataract extraction with lens replacement History of cholecystectomy History of coronary artery bypass graft x 2 (2012) LAWSON to LAD and saphenous vein graft to obtuse marginal History of lumbar surgery (1998) Lumbar diskectomy History of total right knee replacement (2017) Family History Fa
--- NOTE | 2023-04-16 12:08 | PM.IMPN ---
Progress Note: A&P Assessment and Plan (1) Coronary artery disease: Code(s): I25.10 - Atherosclerotic heart disease of [place] coronary artery without angina pectoris Status: Acute (2) Chronic anemia: Code(s): D64.9 - Anemia, unspecified Status: Acute (3) Chronic kidney disease: Code(s): N18.9 - Chronic kidney disease, unspecified Status: Acute (4) Coronary artery disease: Code(s): I25.10 - Atherosclerotic heart disease of [place] coronary artery without angina pectoris Status: Acute (5) Atrial fibrillation with RVR: Code(s): I48.91 - Unspecified atrial fibrillation Status: Acute (6) Hypotension: Code(s): I95.9 - Hypotension, unspecified Status: Acute Plan 1. Afib rvr Appreciate cardiology consultation. Discussed pt with Dr. Yaneli Perry from Cardiology Pt placed on amiodarone drip Started pt on eliquis for anticoagulation. High risk with afib with elevated rate. Hx of anemia from unknown GI source. Hb on admission 11. Discussed with pt if we need to stop if she becomes acutely anemic from a GI bleed Increased from 25 ER qd to 50 ER qd metoprolol for rate control. Currently still elevated HR > 110 AT previous hospital stay, She was discharged on Amiodarone 400mg QD, Metoprolol 25QD and PRN Metoprolol before PT to prevent AFIB (hold for only HR less than 55bpm).? per rn oncology 2. Apical variant hypertrophic cardiomyopathy/ will just need good blood pressure control, ideally normotensive 120/80 According to OSH records from primary rn oncology Dr. Stafford, Class 2b indication for ICD Pt has 1 yr f/u for cardiac monitoring for cardiac events with primary rn oncology had nsvt in 05/2022, CMR 3. HF with preserved EF Cardiac MRI 07/2022 [facility] U RV nl size/systolic function. LVEF 54%, No LVOT, LV apex 1.7 cm suggest of apical HCM, increased T1 signal in apex indicative of fibrosis, ctm blood pressure, ideally normotensive to keep out of diastolic chf 4. CAD with [place] in August 2012, hx of cabg 2 vessel again htn monitoring, now on eliquis 5. CLAUDIA on CKD Stage 1 Baseline 1.2 in early 2022 to 1.7 01/09/23 Cr normal now. Do not start lasix. 6. Hx of mild normocytic anemia related to anemia of CKD, chronic disease, or possible myelodyslastic syndrome not worked up monitor 7. Hx of vertigo from possible orthostatic hypotension repeat levels again. give IVF if necessary Time Spent With Patient Time: 45 min Subjective Date/time seen: 04/16/23 12:08 Interval history: no complaints Review of Systems Review of Systems: denies sob, exertional cp or dyspnea, lightheadedness in different positions Exam Narrative: General:?Nontoxic appearing elderly female in the semi-Gamino position in bed in no acute distress. Weight: 76.2 kg.? BMI: 28.8. HEENT:?Wearing corrective lenses. PERRL, EOMI. Sclera anicteric. Tacky mucous membranes. Neck:??Supple. No JVD. Respiratory:?Lungs are clear to auscultation bilaterally. Cardiovascular:?Irregularly irregular rate and rhythm. Gastrointestinal:??Abdomen is soft, nontender, and nondistended with positive bowel sounds. Skin:??Warm and dry.? No rash or lesions on limited exam. Extremities:??No cyanosis, clubbing, or significant edema. Radial and pedal pulses intact. Neurological:??Alert.? Cranial nerves 2-12 are grossly intact. No gross focal deficits to casual conversation. Psychiatric:??Pleasant and cooperative with normal mood and affect.? Judgment and insight intact. Objective Data Vital Signs Vital Signs: Vital Signs - 24 hr 04/15/23 12:15 04/15/23 12:16 04/15/23 12:30 Temperature Pulse Rate 102 H 108 H 109 H Respiratory Rate 15 18 20 Blood Pressure 103/65 Pulse Oximetry Oxygen Delivery 04/15/23 12:31 04/15/23 12:45 04/15/23 12:46 Temperature Pulse Rate 119 H 121 H 122 H Respiratory Rate 20 21 H 23 H Blood Pressure 123/74 115/82 Pulse Oximetry Oxygen Delivery
[2023-04-16] MEDS: APIXABAN 5 MG TABLET PO ×2 (12:56→21:35)
[2023-04-16] MEDS: MAGNESIUM SULF 2 GM/WATER 50ML 2 GM/50 ML BAG IVPB (13:03)
[2023-04-16] MEDS: POTASSIUM CHLORIDE 20 MEQ ER TABLET 80 MEQ PO (13:04)
[2023-04-16] MEDS: AMIODARONE HCL 200 MG TABLET 400 MG PO (15:01)
--- NOTE | 2023-04-16 16:38 | PC.NURSE ---
On 04/16/23, the student, Irma GAVIN, provided care and completed Savor[employer] documentation on this patient. I have reviewed the student's documentation and agree with the findings.
[2023-04-16] MEDS: ATORVASTATIN 40 MG TABLET 80 MG PO (21:35)
[2023-04-17] VITALS (16 sets, daily range): BP systolic 83–126; BP diastolic 28–81; PULSE 45–66; RESP 16–20; TEMP 36.1–36.6; O2SAT 95–99
[2023-04-17] MEDS: ACETAMINOPHEN 325 MG TABLET 650 MG PO (09:09)
[2023-04-17] MEDS: APIXABAN 5 MG TABLET PO ×2 (09:11→21:58)
[2023-04-17] MEDS: EZETIMIBE 10 MG TABLET PO (09:11)
[2023-04-17] MEDS: CYANOCOBALAMIN 1,000 MCG TABLET 2000 MCG PO (09:11)
[2023-04-17] MEDS: SERTRALINE HCL 50 MG TABLET PO (09:12)
[2023-04-17] MEDS: CHOLECALCIFEROL 1,000 UNITS TABLET 1000 UNITS PO (09:12)
[2023-04-17] MEDS: PANTOPRAZOLE 40 MG TABLET PO ×2 (09:12→21:58)
[2023-04-17] MEDS: DICLOFENAC SODIUM 1% 100 GM GEL (*BKC) 1 APPLIC TOPICAL ×4 (09:13→21:58)
[2023-04-17] MEDS: FUROSEMIDE 20 MG TABLET PO (09:13)
[2023-04-17] MEDS: GABAPENTIN 100 MG CAPSULE 200 MG PO ×3 (09:14→17:47)
--- NOTE | 2023-04-17 09:35 | P.CDI_ITS ---
Mild protein calorie malnutrition/deficiency. Pt is eating diet and has mobility, participating in PT. CDI Query Clarification Request BMI 28.8 Nutritional Diagnostic Statement Severe protein calorie malnutrition related to acute illness, hospitalizations as evidenced by weight loss -14%/ 1 month; inadequate intake < 75 % meals > 1 month; moderate muscle wasting and fat loss. Please refer to the comprehensive nutrition assessment for further information. Please clarify severity of protein calorie malnutrition if known: * Mild * Moderate * Severe * Other/ Unspecified
[2023-04-17 10:18] LABS: Basophils Absolute Auto 0.1 K/mm3 (0.0-0.1); Basophils Percent Auto 0.9 % (0.2-1.2); Eosinophils Absolute Auto 0.4 K/mm3 (0-0.3); Eosinophils Percent Auto 7.3 % (0-4.4); Hematocrit 27.8 % (37.0-47.0); Hemoglobin 8.5 g/dL (12.0-15.0); Immature Granulocyte Absolute 0.02 K/mm3 (0.00-0.031); Immature Granulocyte Percent A 0.4 % (0-0.5); Lymphocytes Percent Auto 16.9 % (18.3-44.2); Mean Corpuscular HGB Conc 30.6 g/dl (32-36); Mean Corpuscular Hemoglobin 29.1 pg (26-34); Mean Corpuscular Volume 95.2 fl (80-100); Mean Platelet Volume 11.6 fl (7.4-10.4); Monocytes Absolute Auto 0.5 K/mm3 (0.1-0.6); Monocytes Percent Auto 9.6 % (2.6-8.5); Neutrophils Absolute Auto 3.5 K/mm3 (1.3-6.7); Neutrophils Percent Auto 64.9 % (45.5-73.1); Platelet Count Result 251 k/mm3 (150-375); Red Blood Count 2.92 M/mm3 (4.2-5.4); Red Cell Distribution Width 19.9 % (11.5-14.5); White Blood Count 5.3 K/mm3 (4.5-10.0)
--- NOTE | 2023-04-17 10:18 | PM.IMPN ---
Progress Note: A&P Assessment and Plan (1) Coronary artery disease: Code(s): I25.10 - Atherosclerotic heart disease of [place] coronary artery without angina pectoris Status: Acute (2) Chronic anemia: Code(s): D64.9 - Anemia, unspecified Status: Acute (3) Chronic kidney disease: Code(s): N18.9 - Chronic kidney disease, unspecified Status: Acute (4) Coronary artery disease: Code(s): I25.10 - Atherosclerotic heart disease of [place] coronary artery without angina pectoris Status: Acute (5) Atrial fibrillation with RVR: Code(s): I48.91 - Unspecified atrial fibrillation Status: Acute (6) Left arm cellulitis: Code(s): L03.114 - Cellulitis of left upper limb Status: Acute (7) Fall: Code(s): W19.XXXA - Unspecified fall, initial encounter Status: Acute (8) Age-related osteoporosis without current pathological fracture: Onset Date: ~11/2017 Code(s): M81.0 - Age-related osteoporosis without current pathological fracture Status: Acute Plan 1. Afib rvr Appreciate cardiology consultation. Discussed pt with Dr. Yaneli Perry from Cardiology Pt placed on amiodarone drip Started pt on eliquis for anticoagulation. High risk with afib with elevated rate. Hx of anemia from unknown GI source. Hb on admission 11. Discussed with pt if we need to stop if she becomes acutely anemic from a GI bleed Increased from 25 ER qd to 50 ER qd metoprolol for rate control. Currently still elevated HR > 110 AT previous hospital stay, She was discharged on Amiodarone 400mg QD, Metoprolol 25QD and PRN Metoprolol before PT to prevent AFIB (hold for only HR less than 55bpm).? per tool setter 04/17: ct amiodarone 400 qd, metoprolol 50 qd er with holding parameters. currently bradycardic in the high 40's but asymptomatic. ok for dc with holding parameters per cardiology. following up labs from today. converted to SR around 2 pm then again to afib around midnight. 2. Apical variant hypertrophic cardiomyopathy/ will just need good blood pressure control, ideally normotensive 120/80 According to OSH records from primary tool setter Dr. Stafford, Class 2b indication for ICD Pt has 1 yr f/u for cardiac monitoring for cardiac events with primary tool setter had nsvt in 05/2022, CMR 3. HF with preserved EF Cardiac MRI 07/2022 from [facility] U RV nl size/systolic function. LVEF 54%, No LVOT, LV apex 1.7 cm suggest of apical HCM, increased T1 signal in apex indicative of fibrosis, ctm blood pressure, ideally normotensive to keep out of diastolic chf 11: on daily lasix 20 mg qd. bp controlled with metoprolol. May not need lasix based on cr from today. 4. CAD with [place] in August 2012, hx of cabg 2 vessel again htn monitoring, now on eliquis 5. CLAUDIA on CKD Stage 1 Baseline 1.2 in early 2022 to 1.7 01/09/23 Cr normal now. 11: may not need lasix. Eval need on creatinine today. Cr was 1.0 yesterday (lowest it has been) 6. Hx of mild normocytic anemia related to anemia of CKD, chronic disease, or possible myelodyslastic syndrome not worked up monitor 04/17: talked to son. She has plans for elective EGD in about 1 week for c/f UGI bleed in recent hx. No GI bleed on this admission. 7. Hx of vertigo from possible orthostatic hypotension repeat levels again. give IVF if necessary 8. L hip hematoma 04/17: XR neg for fracture. Started norco for hip pain. pt has a hx of reactions to various pain medications, not able to describe individually each reaction. IMPRESSION: 1. Mild left hip osteoarthritis. No acute osseous abnormality. 2. Severe osteoarthritis at the right hip. 9. Deconditioning 04/17: ct pt/ot. eval for dc back to ARU. Medically stable. Time Spent With Patient Time: 45 min Talked to son for 10 min on the phone with pt. Subjective Date/time seen: 04/17/23 10:18 Interval history: no symptoms. denies cp, sob, weakness, lethargy, disorientation. converted to SR around 2 pm the
[2023-04-17 10:31] LABS: Anion Gap 6 mmol/L (8-16); Blood Urea Nitrogen 18 mg/dL (7-17); Calcium 9.3 mg/dL (8.4-10.2); Carbon Dioxide 23 mmol/L (22-30); Chloride 105 mmol/L (98-107); Estimated CRCL calculation 24 ml/min; Estimated Glomerular Filt Rate 27; Glucose 124 mg/dL (65-110); Magnesium 1.9 mg/dL (1.6-2.3); Potassium 4.6 mmol/L (3.4-5.0); Sodium 134 mmol/L (137-145)
[2023-04-17] MEDS: HYDROcodone/acetaminophen (*CRX) 5-325 MG TABLET 1 TAB PO (12:49)
--- NOTE | 2023-04-17 14:26 | PM.PNCARD ---
Progress Note: A&P Assessment and Plan (1) Atrial fibrillation with RVR: Code(s): I48.91 - Unspecified atrial fibrillation Status: Acute Assessment and Plan: Patient had converted to sinus rhythm yesterday afternoon but went back into AFIB overnight, however, she remains in rate controlled AFIB with HR in the 45-50s. No symptoms from the bradycardia. Recommend to continue PO Amiodarone and Metoprolol with holding parameters as set. Patient has been off anticoagulation the past month due to issues with anemia. Hgb is currently at 11. Recommend to restart anticoagulation if no bleeding issues and close monitor of her Hgb levels. Okay to discharge from a cardiology standpoint. Patient to follow up with her primary getter welder at [place]. Subjective Date/time seen: 04/17/23 14:26 Interval history: Reason for consult: Atrial fibrillation with RVR HPI: We are consulted for atrial fibrillation with RVR. This is a 77 year old female with paroxysmal atrial fibrillation that has been difficult to control, orthostatic hypotension, anemia, CAD s/p CABG, apical hypertrophic cardiomyopathy, hypertension, hyperlipidemia, chronic kidney disease. Patient's primary getter welder is Dr. Stafford at [place]. Patient was here at [facility] in February 2023 with difficult to control atrial fibrillation and ended up getting transferred to [place] for further management. Patient had a long stay at [facility] and was admitted from 02/17/2023 to 03/21/2023 (discharge summary scanned in [facility] chart and was personally reviewed). She was discharged on Amiodarone 400mg QD, Metoprolol 25QD and PRN Metoprolol before PT to prevent AFIB (hold for only HR less than 55bpm). The past few days, patient has had symptoms of lightheadedness/dizziness with therapy and was found with HR in the 150s for which she was sent to the ED for. In the ER, she was given Diltiazem 10mg IV x 1 without much change in her heart rate, however, her blood pressure dropped with it. She was then started on Amiodarone drip with improvement. This morning, patient reports she feels okay sitting in bed without lightheadedness/dizziness. Of note, patient has not been on anticoagulation for the past month due to issues with her anemia. Date of service 04/17: Patient had converted to sinus rhythm yesterday afternoon but went back into AFIB overnight, however, she remains in rate controlled AFIB with HR in the 45-50s. Patient reports pain in her hips, but otherwise denies chest pain, palpitations. Exam Const: General: no acute distress HENMT: Mouth: Yes moist mucous membranes Eyes: General: appearance normal, both eyes and all related structures Sclera: sclerae normal Resp: Effort & Inspection: normal respiratory effort Auscultation: clear to auscultation bilaterally Cardio: Rhythm: abnormal rhythm irregularly irregular Neuro: Speech: normal speech Psych: Mental Status: mental status grossly normal Affect: normal affect Objective Data Vital Signs Vital Signs: Vital Signs - 24 hr 04/16/23 15:01 04/16/23 15:23 04/16/23 18:00 Temperature 36.4 C L Pulse Rate 60 60 64 Respiratory Rate 14 Blood Pressure 92/47 L Pulse Oximetry 100 Oxygen Delivery 04/16/23 16:00 04/16/23 20:00 04/16/23 23:13 Temperature 36.3 C L 36.6 C Pulse Rate 61 88 66 Respiratory Rate 18 18 Blood Pressure 99/40 L 96/54 L Pulse Oximetry 100 99 Oxygen Delivery 04/16/23 20:00 04/17/23 00:00 04/17/23 04:00 Temperature 36.6 C Pulse Rate 66 66 52 L Respiratory Rate 18 18 20 Blood Pressure 97/55 L Pulse Oximetry 99 99 98 Oxygen Delivery Room Air Room Air 04/17/23 04:00 04/16/23 20:00 04/16/23 22:00 Temperature Pulse Rate 52 L 62 64 Respiratory Rate 20 Blood Pressure Pulse Oximetry 98 Oxygen Delivery Room Air 04/17/23 00:00 04/17/23 02:00 04/17/23 04:00 Temperature Pulse Rate 56 L 65 61 Respiratory Rate Blood Pressure Pulse Oximetry Oxyge
[2023-04-17] MEDS: ATORVASTATIN 40 MG TABLET 80 MG PO (21:57)
[2023-04-18] VITALS (19 sets, daily range): BP systolic 96–140; BP diastolic 44–66; PULSE 58–111; RESP 16–28; TEMP 36.1–36.9; O2SAT 94–100
[2023-04-18] MEDS: LACTATED RINGERS 500 ML 100 ML IV CONT (00:40)
--- NOTE | 2023-04-18 09:00 | WPDGIPROGNO ---
Progress Note: A&P Assessment and Plan (1) Chronic anemia: Code(s): D64.9 - Anemia, unspecified Status: Acute Assessment and Plan: Patient with chronic anemia. GI endoscopy was anticipated for Friday. Current plan is to keep patient in the hospital and hold Eliquis in anticipation of this. Dr. Christianson returns tomorrow and will follow up patient. Anticipated GI endoscopy on his schedule. Patient will require colon prep on Friday. Hold Eliquis for now. Hemoglobin is initially stable at present. No active bleeding noted. (2) Occult blood in stools: Code(s): R19.5 - Other fecal abnormalities Status: Acute Assessment and Plan: Patient apparently had occult blood on previous exam in the ER. Repeat iron and stool for occult blood pending at this time. Continue to monitor hemoglobin intermittently. (3) Atrial fibrillation with RVR: Code(s): I48.91 - Unspecified atrial fibrillation Status: Acute Subjective Date/time seen: 04/18/23 09:00 Interval history: Patient alert comfortable this morning. Offers no specific complaints. Denies obvious blood in her stools. Review of Systems Review of Systems: Review of systems noncontributory. Exam Narrative: Physical exam reveals patient to be alert comfortable at rest. Vital signs stable. HEENT exam is unremarkable. Patient anicteric. Lungs are clear to auscultation and percussion. Heart without murmur. Irregularly irregular. Abdomen bowel sounds present soft nontender. Objective Data Vital Signs Vital Signs: Vital Signs - 24 hr 04/17/23 09:21 04/17/23 09:21 04/17/23 10:00 Temperature Pulse Rate 46 L 46 L 62 Respiratory Rate Blood Pressure Pulse Oximetry Oxygen Delivery 04/17/23 12:00 04/17/23 12:00 04/17/23 14:43 Temperature Pulse Rate 52 L Respiratory Rate Blood Pressure Pulse Oximetry 95 Oxygen Delivery Room Air Room Air 04/17/23 14:00 04/17/23 16:00 04/17/23 16:00 Temperature Pulse Rate 45 L 61 61 Respiratory Rate 18 Blood Pressure Pulse Oximetry 95 Oxygen Delivery Room Air 04/17/23 16:00 04/17/23 16:02 04/17/23 16:05 Temperature Pulse Rate Respiratory Rate Blood Pressure 107/48 L 126/56 L 106/81 Pulse Oximetry Oxygen Delivery 04/17/23 16:00 04/17/23 18:00 04/17/23 20:00 Temperature 97.6 F 97.4 F L Pulse Rate 64 60 63 Respiratory Rate 20 18 Blood Pressure 107/48 L 83/28 L Pulse Oximetry 99 98 Oxygen Delivery 04/17/23 20:00 04/17/23 20:00 04/18/23 00:00 Temperature 97.6 F Pulse Rate 58 L Respiratory Rate 16 Blood Pressure 83/28 L 83/32 L 96/47 L Pulse Oximetry 97 Oxygen Delivery 04/17/23 20:00 04/17/23 20:00 04/17/23 22:00 Temperature Pulse Rate 58 L 61 57 L Respiratory Rate 16 Blood Pressure Pulse Oximetry 97 Oxygen Delivery Room Air 04/18/23 00:00 04/18/23 00:00 04/18/23 03:52 Temperature 98.1 F Pulse Rate 59 L 58 L 62 Respiratory Rate 16 16 Blood Pressure 112/56 L Pulse Oximetry 97 97 Oxygen Delivery Room Air 04/18/23 02:00 04/18/23 04:00 04/18/23 04:00 Temperature Pulse Rate 59 L 66 62 Respiratory Rate 16 Blood Pressure Pulse Oximetry 97 Oxygen Delivery Room Air 04/18/23 06:00 04/18/23 08:00 04/18/23 08:00 Temperature 97.6 F 97.6 F Pulse Rate 61 83 83 Respiratory Rate 24 H 24 H Blood Pressure 124/54 L 124/54 L Pulse Oximetry 97 97 Oxygen Delivery 04/18/23 08:07 04/18/23 08:13 04/18/23 08:31 Temperature 98.2 F Pulse Rate 69 70 Respiratory Rate 28 H Blood Pressure 118/53 L Pulse Oximetry 97 94 Oxygen Delivery Room Air Room Air Intake/Output Intake/Output: Intake & Output 04/15/23 04/16/23 04/17/23 04/18/23 23:59 23:59 23:59 23:59 Intake Total 800 2365 1680 200 Output Total 311 930 2400 Balance 800 1415 1380 -1100 Meds/Results Medications: Active Medications Ge
--- NOTE | 2023-04-18 09:06 | PM.PNCARD ---
Progress Note: A&P Assessment and Plan (1) Atrial fibrillation with RVR: Code(s): I48.91 - Unspecified atrial fibrillation Status: Acute Assessment and Plan: Patient had converted to sinus rhythm yesterday afternoon but went back into AFIB overnight, however, she remains in rate controlled AFIB with HR in the 45-50s. No symptoms from the bradycardia. Recommend to continue PO Amiodarone and Metoprolol but will reduce her metoprolol succinate down to 25 mg daily. Patient has been off anticoagulation the past month due to issues with anemia. Hgb is currently at 11. Recommend to restart anticoagulation if no bleeding issues and close monitor of her Hgb levels. Okay to discharge from a cardiology standpoint. Patient to follow up with her primary cloth boil off machine operator at [facility]. Cardiology to sign off (2) Coronary artery disease: Code(s): I25.10 - Atherosclerotic heart disease of [place] coronary artery without angina pectoris Status: Acute Assessment and Plan: Asymptomatic. Continue statin, Zetia, metoprolol (3) Chronic anemia: Code(s): D64.9 - Anemia, unspecified Status: Acute Assessment and Plan: Scheduled for colonoscopy Subjective Date/time seen: 04/18/23 09:06 Interval history: Reason for consult: Atrial fibrillation with RVR HPI: We are consulted for atrial fibrillation with RVR. This is a 77 year old female with paroxysmal atrial fibrillation that has been difficult to control, orthostatic hypotension, anemia, CAD s/p CABG, apical hypertrophic cardiomyopathy, hypertension, hyperlipidemia, chronic kidney disease. Patient's primary cloth boil off machine operator is Dr. Stafford at [facility]. Patient was here at [facility] in February 2023 with difficult to control atrial fibrillation and ended up getting transferred to [facility] for further management. Patient had a long stay at [facility] and was admitted from 02/17/2023 to 03/21/2023 (discharge summary scanned in [facility] chart and was personally reviewed). She was discharged on Amiodarone 400mg QD, Metoprolol 25QD and PRN Metoprolol before PT to prevent AFIB (hold for only HR less than 55bpm). The past few days, patient has had symptoms of lightheadedness/dizziness with therapy and was found with HR in the 150s for which she was sent to the ED for. In the ER, she was given Diltiazem 10mg IV x 1 without much change in her heart rate, however, her blood pressure dropped with it. She was then started on Amiodarone drip with improvement. This morning, patient reports she feels okay sitting in bed without lightheadedness/dizziness. Of note, patient has not been on anticoagulation for the past month due to issues with her anemia. Date of service 04/17: Patient had converted to sinus rhythm yesterday afternoon but went back into AFIB overnight, however, she remains in rate controlled AFIB with HR in the 45-50s. Patient reports pain in her hips, but otherwise denies chest pain, palpitations. Date of service 04/18/2023: Remains in sinus rhythm. From a cardiac perspective she feels okay. She has back pain but she has no chest pain, shortness of breath, syncope Review of Systems Review of Systems: All systems reviewed & are unremarkable except as noted in HPI and below Constitutional: Constitutional: Denies body ache(s) Cardiovascular: Cardiovascular: Denies chest pain Respiratory: Respiratory: Denies dyspnea Exam Const: General: no acute distress HENMT: Mouth: Yes moist mucous membranes Eyes: General: appearance normal, both eyes and all related structures Sclera: sclerae normal Resp: Effort & Inspection: normal respiratory effort Auscultation: clear to auscultation bilaterally Cardio: Rhythm: abnormal rhythm irregularly irregular Neuro: Speech: normal speech Psych: Mental Status: mental status grossly normal Affect: normal affect Objective Data Vital Signs Vital Signs: Vital Signs - 24 hr 04/17/23 09:21 04/17/23 09:21 04/17/23 10:00 Temperature
[2023-04-18] MEDS: AMIODARONE HCL 200 MG TABLET 400 MG PO (09:30)
[2023-04-18] MEDS: FUROSEMIDE 20 MG TABLET PO (09:33)
[2023-04-18] MEDS: CHOLECALCIFEROL 1,000 UNITS TABLET 1000 UNITS PO (09:33)
[2023-04-18] MEDS: DICLOFENAC SODIUM 1% 100 GM GEL (*BKC) 1 APPLIC TOPICAL ×3 (09:34→22:47)
[2023-04-18] MEDS: PANTOPRAZOLE 40 MG TABLET PO ×2 (09:34→20:35)
[2023-04-18] MEDS: EZETIMIBE 10 MG TABLET PO (09:34)
[2023-04-18] MEDS: CYANOCOBALAMIN 1,000 MCG TABLET 2000 MCG PO (09:34)
[2023-04-18] MEDS: SERTRALINE HCL 50 MG TABLET PO (09:35)
[2023-04-18] MEDS: GABAPENTIN 100 MG CAPSULE 200 MG PO ×3 (09:35→17:44)
--- NOTE | 2023-04-18 14:20 | PM.IMPN ---
Progress Note: A&P Assessment and Plan (1) Coronary artery disease: Code(s): I25.10 - Atherosclerotic heart disease of [place] coronary artery without angina pectoris Status: Acute (2) Chronic anemia: Code(s): D64.9 - Anemia, unspecified Status: Acute (3) Chronic kidney disease: Code(s): N18.9 - Chronic kidney disease, unspecified Status: Acute (4) Atrial fibrillation with RVR: Code(s): I48.91 - Unspecified atrial fibrillation Status: Acute (5) Left arm cellulitis: Code(s): L03.114 - Cellulitis of left upper limb Status: Acute (6) Fall: Code(s): W19.XXXA - Unspecified fall, initial encounter Status: Acute (7) Age-related osteoporosis without current pathological fracture: Onset Date: ~11/2017 Code(s): M81.0 - Age-related osteoporosis without current pathological fracture Status: Acute Plan # Afib rvr Appreciate cardiology consultation. Discussed pt with Dr. Yaneli Perry from Cardiology Pt placed on amiodarone drip now to oral amiodarone. on metoprolol back to sinus rhythm now eliquis on hold for gi workup # Apical variant hypertrophic cardiomyopathy/ fu with cardiology as op basis. # HF with preserved EF: Cardiac MRI 07/2022 from [facility] RV nl size/systolic function. LVEF 54%, No LVOT, LV apex 1.7 cm suggest of apical HCM, increased T1 signal in apex indicative of fibrosis, ctm blood pressure, ideally normotensive to keep out of diastolic chf on daily lasix 20 mg qd. bp controlled with metoprolol. # CAD with GA in August 2012, hx of cabg 2 vessel again htn monitoring, now on eliquis # CLAUDIA on CKD Stage 1 Baseline 1.2 in early 2022 to 1.7 01/09/23 Cr up again. recheck and monitor # Hx of mild normocytic anemia related to anemia of CKD, chronic disease, or possible myelodyslastic syndrome not worked up monitor 04/17: talked to son. She has plans for elective EGD in about 1 week for c/f UGI bleed in recent hx. No GI bleed on this admission. GI consulted here. plan for EGD coming friday. # Hx of vertigo from possible orthostatic hypotension repeat levels again. give IVF if necessary # L hip hematoma 04/17: XR neg for fracture. Started norco for hip pain. pt has a hx of reactions to various pain medications, not able to describe individually each reaction. IMPRESSION: 1. Mild left hip osteoarthritis. No acute osseous abnormality. 2. Severe osteoarthritis at the right hip. # Deconditioning 04/17: ct pt/ot. eval for dc back to ARU. Medically stable. Subjective Date/time seen: 04/18/23 14:21 Interval history: ovenright went into afib. back to sinus rhythm currently. reprots back pain which is chronic. Review of Systems Review of Systems: All systems reviewed & are unremarkable except as noted in HPI and below Exam Narrative: General:?Nontoxic appearing elderly female, in no acute distress. HEENT:?Wearing corrective lenses. PERRL, EOMI. Sclera anicteric. Tacky mucous membranes. Neck:??Supple. No JVD. Respiratory:?Lungs are clear to auscultation bilaterally. Cardiovascular:?regular rate and rhythm Gastrointestinal:??Abdomen is soft, nontender, and nondistended with positive bowel sounds. Skin:??Warm and dry.? No rash or lesions on limited exam. Extremities:??No cyanosis, clubbing, or significant edema. Radial and pedal pulses intact. Neurological:??Alert.? Cranial nerves 2-12 are grossly intact. No gross focal deficits to casual conversation. Psychiatric:??Pleasant and cooperative with normal mood and affect.? Judgment and insight intact. Objective Data Vital Signs Vital Signs: Vital Signs - 24 hr 04/17/23 14:43 04/17/23 16:00 04/17/23 16:00 Temperature Pulse Rate 61 61 Respiratory Rate 18 Blood Pressure Pulse Oximetry 95 95 Oxygen Delivery Room Air Room Air 04/17/23 16:00 04/17/23 16:02 04/17/23 16:05 Temperature Pulse Rate Respiratory Rate Blood Pressure 107/48 L 126/56 L 10
[2023-04-18 14:53] LABS: Basophils Percent Auto 0.8 % (0.2-1.2); Eosinophils Absolute Auto 0.5 K/mm3 (0-0.3); Eosinophils Percent Auto 8.6 % (0-4.4); Hematocrit 28.7 % (37.0-47.0); Hemoglobin 8.8 g/dL (12.0-15.0); Immature Granulocyte Absolute 0.02 K/mm3 (0.00-0.031); Immature Granulocyte Percent A 0.4 % (0-0.5); Lymphocytes Absolute Auto 0.92 K/mm3 (0.9-3.2); Lymphocytes Percent Auto 17.3 % (18.3-44.2); Mean Corpuscular HGB Conc 30.7 g/dl (32-36); Mean Corpuscular Hemoglobin 29.2 pg (26-34); Mean Corpuscular Volume 95.3 fl (80-100); Mean Platelet Volume 11.8 fl (7.4-10.4); Monocytes Absolute Auto 0.6 K/mm3 (0.1-0.6); Monocytes Percent Auto 10.5 % (2.6-8.5); Neutrophils Absolute Auto 3.3 K/mm3 (1.3-6.7); Neutrophils Percent Auto 62.4 % (45.5-73.1); Platelet Count Result 263 k/mm3 (150-375); Red Blood Count 3.01 M/mm3 (4.2-5.4); Red Cell Distribution Width 19.7 % (11.5-14.5); White Blood Count 5.3 K/mm3 (4.5-10.0)
[2023-04-18 15:04] LABS: Alanine Aminotransferase 40 U/L (6-35); Albumin Level 3.2 g/dL (3.5-5.1); Alkaline Phosphatase 84 U/L (38-126); Anion Gap 6 mmol/L (8-16); Aspartate Amino Transferase 44 U/L (14-36); Bilirubin,Total 0.7 mg/dL (0.2-1.3); Blood Urea Nitrogen 20 mg/dL (7-17); Calcium 9.8 mg/dL (8.4-10.2); Carbon Dioxide 27 mmol/L (22-30); Chloride 103 mmol/L (98-107); Estimated CRCL calculation 24 ml/min; Estimated Glomerular Filt Rate 27; Glucose 98 mg/dL (65-110); Magnesium 1.7 mg/dL (1.6-2.3); Sodium 136 mmol/L (137-145)
[2023-04-18] MEDS: ATORVASTATIN 40 MG TABLET 80 MG PO (20:34)
--- NOTE | 2023-04-18 21:05 | PC.NURSE ---
This patient, Tiera Lobato, was transferred to [[facility] ] on 04/18/23 at 2105. Personal belongings sent with patient. Report given to [[facility] ]. Appropriate documentation sent with patient.
[2023-04-19] VITALS (15 sets, daily range): BP systolic 90–136; BP diastolic 46–90; PULSE 61–72; RESP 16–18; TEMP 36.1–37.4; O2SAT 94–99
[2023-04-19 05:55] LABS: Basophils Percent Auto 1.2 % (0.2-1.2); Eosinophils Absolute Auto 0.3 K/mm3 (0-0.3); Eosinophils Percent Auto 10.1 % (0-4.4); Hematocrit 29.7 % (37.0-47.0); Hemoglobin 8.9 g/dL (12.0-15.0); Immature Granulocyte Absolute 0.01 K/mm3 (0.00-0.031); Immature Granulocyte Percent A 0.3 % (0-0.5); Lymphocytes Absolute Auto 1.06 K/mm3 (0.9-3.2); Lymphocytes Percent Auto 32.3 % (18.3-44.2); Mean Corpuscular Hemoglobin 28.8 pg (26-34); Mean Corpuscular Volume 96.1 fl (80-100); Mean Platelet Volume 11.8 fl (7.4-10.4); Monocytes Absolute Auto 0.4 K/mm3 (0.1-0.6); Monocytes Percent Auto 11.3 % (2.6-8.5); Neutrophils Absolute Auto 1.5 K/mm3 (1.3-6.7); Neutrophils Percent Auto 44.8 % (45.5-73.1); Platelet Count Result 262 k/mm3 (150-375); Red Blood Count 3.09 M/mm3 (4.2-5.4); Red Cell Distribution Width 19.9 % (11.5-14.5); White Blood Count 3.3 K/mm3 (4.5-10.0)
[2023-04-19 05:59] LABS: Alanine Aminotransferase 35 U/L (6-35); Albumin Level 3.2 g/dL (3.5-5.1); Alkaline Phosphatase 84 U/L (38-126); Anion Gap 5 mmol/L (8-16); Aspartate Amino Transferase 35 U/L (14-36); Bilirubin,Total 0.8 mg/dL (0.2-1.3); Blood Urea Nitrogen 18 mg/dL (7-17); Calcium 9.7 mg/dL (8.4-10.2); Carbon Dioxide 29 mmol/L (22-30); Chloride 103 mmol/L (98-107); Estimated CRCL calculation 30 ml/min; Estimated Glomerular Filt Rate 36; Glucose 92 mg/dL (65-110); Magnesium 1.6 mg/dL (1.6-2.3); Sodium 137 mmol/L (137-145)
[2023-04-19] MEDS: CHOLECALCIFEROL 1,000 UNITS TABLET 1000 UNITS PO (09:38)
[2023-04-19] MEDS: PANTOPRAZOLE 40 MG TABLET PO ×2 (09:38→20:21)
[2023-04-19] MEDS: AMIODARONE HCL 200 MG TABLET 400 MG PO (09:38)
[2023-04-19] MEDS: GABAPENTIN 100 MG CAPSULE 200 MG PO ×3 (09:39→16:59)
[2023-04-19] MEDS: METOPROLOL SUCCINATE EXT REL 25 MG TABCR PO (09:39)
[2023-04-19] MEDS: EZETIMIBE 10 MG TABLET PO (09:39)
[2023-04-19] MEDS: SERTRALINE HCL 50 MG TABLET PO (09:39)
[2023-04-19] MEDS: DICLOFENAC SODIUM 1% 100 GM GEL (*BKC) 1 APPLIC TOPICAL ×2 (09:40→16:59)
[2023-04-19] MEDS: CYANOCOBALAMIN 1,000 MCG TABLET 2000 MCG PO (09:43)
--- NOTE | 2023-04-19 10:18 | PM.PNCARD ---
Progress Note: A&P Assessment and Plan (1) Atrial fibrillation with RVR: Code(s): I48.91 - Unspecified atrial fibrillation Status: Acute Assessment and Plan: Patient had converted to sinus rhythm yesterday afternoon but went back into AFIB overnight, however, she remains in rate controlled AFIB with HR in the 45-50s. No symptoms from the bradycardia. Recommend to continue PO Amiodarone and Metoprolol She is tolerating her lower dose metoprolol which was reduced yesterday. Patient has been off anticoagulation the past month due to issues with anemia. Hgb is currently at 8.9. Recommend to restart anticoagulation if no bleeding issues and close monitor of her Hgb levels. Plan for scope Friday Okay to discharge from a cardiology standpoint. Patient to follow up with her primary parking meter attendant at [facility]. Cardiology to sign off (2) Coronary artery disease: Code(s): I25.10 - Atherosclerotic heart disease of [place] coronary artery without angina pectoris Status: Acute Assessment and Plan: Asymptomatic. Continue statin, Zetia, metoprolol (3) Chronic anemia: Code(s): D64.9 - Anemia, unspecified Status: Acute Assessment and Plan: Plan for scope Friday Subjective Date/time seen: 04/19/23 10:18 Interval history: Reason for consult: Atrial fibrillation with RVR HPI: We are consulted for atrial fibrillation with RVR. This is a 77 year old female with paroxysmal atrial fibrillation that has been difficult to control, orthostatic hypotension, anemia, CAD s/p CABG, apical hypertrophic cardiomyopathy, hypertension, hyperlipidemia, chronic kidney disease. Patient's primary parking meter attendant is Dr. Stafford at [facility]. Patient was here at [facility] in February 2023 with difficult to control atrial fibrillation and ended up getting transferred to [facility] for further management. Patient had a long stay at [facility] and was admitted from 02/17/2023 to 03/21/2023 (discharge summary scanned in [facility] chart and was personally reviewed). She was discharged on Amiodarone 400mg QD, Metoprolol 25QD and PRN Metoprolol before PT to prevent AFIB (hold for only HR less than 55bpm). The past few days, patient has had symptoms of lightheadedness/dizziness with therapy and was found with HR in the 150s for which she was sent to the ED for. In the ER, she was given Diltiazem 10mg IV x 1 without much change in her heart rate, however, her blood pressure dropped with it. She was then started on Amiodarone drip with improvement. This morning, patient reports she feels okay sitting in bed without lightheadedness/dizziness. Of note, patient has not been on anticoagulation for the past month due to issues with her anemia. Date of service 04/17: Patient had converted to sinus rhythm yesterday afternoon but went back into AFIB overnight, however, she remains in rate controlled AFIB with HR in the 45-50s. Patient reports pain in her hips, but otherwise denies chest pain, palpitations. Date of service 04/18/2023: Remains in sinus rhythm. From a cardiac perspective she feels okay. She has back pain but she has no chest pain, shortness of breath, syncope Date of service 04/19/2023: Still feels okay. No chest pain, shortness of breath. No swelling. Review of Systems Review of Systems: All systems reviewed & are unremarkable except as noted in HPI and below Constitutional: Constitutional: Denies body ache(s) Cardiovascular: Cardiovascular: Denies chest pain and Denies dyspnea Respiratory: Respiratory: Denies dyspnea Exam Const: General: no acute distress HENMT: Mouth: Yes moist mucous membranes Eyes: General: appearance normal, both eyes and all related structures Sclera: sclerae normal Resp: Effort & Inspection: normal respiratory effort Auscultation: clear to auscultation bilaterally Cardio: Rhythm: abnormal rhythm irregularly irregular Neuro: Speech: normal speech Psych: Mental Status: mental status grossly normal
--- NOTE | 2023-04-19 13:14 | PCOTNOTE ---
Attempted to see pt for Occupational Therapy treatment. Pt declined to participate in any self care tasks, strengthening, or functional transfers out of bed. Pt states I'm exhausted...I feel like the rug has been pulled out from underneath me... . Pt was educated on the importance of participation in therapy for increase strengthening and independence with daily occupations. Pt verbalized understanding, however, continued to decline participation. Pt's family is present during attempt. Will continue per poc duration/frequency tomorrow.
--- NOTE | 2023-04-19 15:35 | PM.IMPN ---
Progress Note: A&P Assessment and Plan (1) Coronary artery disease: Code(s): I25.10 - Atherosclerotic heart disease of [place] coronary artery without angina pectoris Status: Acute (2) Chronic anemia: Code(s): D64.9 - Anemia, unspecified Status: Acute (3) Chronic kidney disease: Code(s): N18.9 - Chronic kidney disease, unspecified Status: Acute (4) Atrial fibrillation with RVR: Code(s): I48.91 - Unspecified atrial fibrillation Status: Acute (5) Left arm cellulitis: Code(s): L03.114 - Cellulitis of left upper limb Status: Acute (6) Fall: Code(s): W19.XXXA - Unspecified fall, initial encounter Status: Acute (7) Age-related osteoporosis without current pathological fracture: Onset Date: ~11/2017 Code(s): M81.0 - Age-related osteoporosis without current pathological fracture Status: Acute Plan # Afib rvr Appreciate cardiology consultation. Discussed pt with Dr. Yaneli Perry from Cardiology Pt placed on amiodarone drip now to oral amiodarone. on metoprolol back to sinus rhythm now eliquis on hold for gi workup await their recommendation # Apical variant hypertrophic cardiomyopathy/ fu with cardiology as op basis. # HF with preserved EF: Cardiac MRI 07/2022 from [facility] RV nl size/systolic function. LVEF 54%, No LVOT, LV apex 1.7 cm suggest of apical HCM, increased T1 signal in apex indicative of fibrosis, ctm blood pressure, ideally normotensive to keep out of diastolic chf on daily lasix 20 mg qd. bp controlled with metoprolol. # CAD with [place] in August 2012, hx of cabg 2 vessel again htn monitoring, now on eliquis # CLAUDIA on CKD Stage 1 Baseline 1.2 in early 2022 to 1.7 01/09/23 Cr up again. recheck and monitor # Hx of mild normocytic anemia related to anemia of CKD, chronic disease, or possible myelodyslastic syndrome not worked up monitor 04/17: talked to son. She has plans for elective EGD in about 1 week for c/f UGI bleed in recent hx. No GI bleed on this admission. GI consulted here. plan for EGD coming friday. # Hx of vertigo from possible orthostatic hypotension repeat levels again. give IVF if necessary # L hip hematoma 04/17: XR neg for fracture. Started norco for hip pain. pt has a hx of reactions to various pain medications, not able to describe individually each reaction. IMPRESSION: 1. Mild left hip osteoarthritis. No acute osseous abnormality. 2. Severe osteoarthritis at the right hip. # Deconditioning 04/17: ct pt/ot. eval for dc back to ARU. Medically stable. Subjective Date/time seen: 04/19/23 15:36 Interval history: No new complaints. Patient thinking if she wants to get these scopes done he here. She wants to think about it. Review of Systems Review of Systems: All systems reviewed & are unremarkable except as noted in HPI and below Exam Narrative: General:?Nontoxic appearing elderly female, in no acute distress. HEENT:?Wearing corrective lenses. PERRL, EOMI. Sclera anicteric. Tacky mucous membranes. Neck:??Supple. No JVD. Respiratory:?Lungs are clear to auscultation bilaterally. Cardiovascular:?regular rate and rhythm Gastrointestinal:??Abdomen is soft, nontender, and nondistended with positive bowel sounds. Skin:??Warm and dry.? No rash or lesions on limited exam. Extremities:??No cyanosis, clubbing, or significant edema. Radial and pedal pulses intact. Neurological:??Alert.? Cranial nerves 2-12 are grossly intact. No gross focal deficits to casual conversation. Psychiatric:??Pleasant and cooperative with normal mood and affect.? Judgment and insight intact. Objective Data Vital Signs Vital Signs: Vital Signs - 24 hr 04/18/23 15:50 04/18/23 16:00 04/18/23 16:00 Temperature 98.4 F Pulse Rate 65 65 68 Respiratory Rate 16 16 Blood Pressure 122/50 L Pulse Oximetry 98 98 Oxygen Delivery Room Air 04/18/23 16:00 04/18/23 18:00 04/18/23 19:42 Temperature 98.4 F 97 F L Pu
--- NOTE | 2023-04-19 15:45 | WPDGIPROGNO ---
Progress Note: A&P Assessment and Plan (1) Occult blood in stools: Code(s): R19.5 - Other fecal abnormalities Status: Acute Assessment and Plan: h/h stable now but needs egd and colonoscopy, scheduled for Friday tomorrow bowel prep (2) Acute on chronic anemia: Code(s): D64.9 - Anemia, unspecified Status: Acute Assessment and Plan: imelda now has been on hold no overt gib but had + FOBT scopes Friday (3) Atrial fibrillation with RVR: Code(s): I48.91 - Unspecified atrial fibrillation Status: Acute Assessment and Plan: back on normal rhythm cardiology on board (4) Coronary artery disease: Code(s): I25.10 - Atherosclerotic heart disease of [place] coronary artery without angina pectoris Status: Acute Subjective Date/time seen: 04/19/23 15:45 Interval history: she is comfortable, family at bedside no report of gib she is not longer on afib Review of Systems Review of Systems: All systems reviewed & are unremarkable except as noted in HPI and below Exam Const: General: comfortable and no acute distress HENMT: Face/Nose/Sinus: Normal nares present Eyes: General: appearance normal, both eyes and all related structures Neck: Neck: supple Resp: Auscultation: clear to auscultation bilaterally Cardio: Rate: regular rate Rhythm: regular rhythm GI: Inspection: non-distended GI Palp: Yes Soft to palpation and No Tenderness to palpation present (GI) Auscultation: normal bowel sounds Skin: General skin exam: normal color Neuro: Speech: normal speech Motor exam (neuro): 5/5 motor strength present throughout Extrem: General: normal to inspection Psych: Mental Status: mental status grossly normal Objective Data Vital Signs Vital Signs: Vital Signs - 24 hr 04/18/23 15:50 04/18/23 16:00 04/18/23 16:00 Temperature 98.4 F Pulse Rate 65 65 68 Respiratory Rate 16 16 Blood Pressure 122/50 L Pulse Oximetry 98 98 Oxygen Delivery Room Air 04/18/23 16:00 04/18/23 18:00 04/18/23 19:42 Temperature 98.4 F 97 F L Pulse Rate 65 71 71 Respiratory Rate 16 16 Blood Pressure 122/50 L 103/44 L Pulse Oximetry 98 98 Oxygen Delivery 04/18/23 20:00 04/18/23 20:00 04/18/23 21:13 Temperature 97.6 F Pulse Rate 70 64 Respiratory Rate 16 Blood Pressure 122/60 Pulse Oximetry 100 Oxygen Delivery Room Air 04/19/23 00:00 04/19/23 04:00 04/19/23 06:00 Temperature 97.9 F Pulse Rate 66 68 61 Respiratory Rate 16 Blood Pressure 134/61 Pulse Oximetry 97 Oxygen Delivery 04/19/23 09:38 04/19/23 09:39 04/19/23 08:00 Temperature Pulse Rate 68 68 Respiratory Rate Blood Pressure Pulse Oximetry Oxygen Delivery Room Air 04/19/23 10:25 04/19/23 10:27 04/19/23 10:30 Temperature Pulse Rate Respiratory Rate Blood Pressure 115/46 L 136/74 123/90 Pulse Oximetry Oxygen Delivery 04/19/23 14:30 Temperature 99.3 F Pulse Rate 61 Respiratory Rate 18 Blood Pressure 100/60 Pulse Oximetry 94 Oxygen Delivery Intake/Output Intake/Output: Intake & Output 04/16/23 04/17/23 04/18/23 04/19/23 23:59 23:59 23:59 23:59 Intake Total 2365 1680 2000 240 Output Total 295 324 0367 700 Balance 1415 1380 700 -460 Meds/Results Medications: Active Medications Generic Name Dose Route Start Last Admin Trade Name Freq PRN Reason Stop Dose Admin Hydrocodone Bitart/Acetaminophen 1 tab 04/17/23 10:26 04/17/23 12:49 Hydrocodone/Acetaminophen (*Crx) 5-325 Mg Tablet PO 1 tab Q4H PRN Administration Pain Rated 4-6 Amiodarone HCl 400 mg 04/16/23 09:00 04/19/23 09:38 Amiodarone Hcl 200 Mg Tablet PO 400 mg DAILY AGUS Administration Apixaban 5 mg 04/16/23 12:05 04/17/23 21:58 Apixaban 5 Mg Tablet PO 5 mg Q12HR AGUS Administration Atorvastatin Calcium 80 mg 04/15/23 21:00 04/18/23 20:34 Atorvastatin 40 Mg Tablet PO 80 mg HS AGUS A
[2023-04-19] MEDS: HYDROcodone/acetaminophen (*CRX) 5-325 MG TABLET 1 TAB PO (18:37)
[2023-04-19] MEDS: ATORVASTATIN 40 MG TABLET 80 MG PO (20:21)
[2023-04-20] VITALS (16 sets, daily range): BP systolic 108–135; BP diastolic 50–71; PULSE 56–83; RESP 16–18; TEMP 36.1–37.3; O2SAT 95–98
--- NOTE | 2023-04-20 01:22 | PC.NURSE ---
Daylight Savings Time For Daylight Savings Time Ending in the Fall - Clocks are moved back. For Daylight Savings Time Beginning in the Spring - Clocks are moved ahead. For [facility], the time of change occurs at 0200 hrs. Time is taken from the banquet server. This entry on the patient's chart recognizes the change in time reflected during documentation. Example: 2 entries for vital signs may be charted for 0200 hrs.
[2023-04-20 06:20] LABS: Basophils Absolute Auto 0.1 K/mm3 (0.0-0.1); Basophils Percent Auto 1.7 % (0.2-1.2); Eosinophils Absolute Auto 0.3 K/mm3 (0-0.3); Eosinophils Percent Auto 8.5 % (0-4.4); Hematocrit 29.4 % (37.0-47.0); Hemoglobin 8.9 g/dL (12.0-15.0); Immature Granulocyte Absolute 0.01 K/mm3 (0.00-0.031); Immature Granulocyte Percent A 0.3 % (0-0.5); Lymphocytes Absolute Auto 1.32 K/mm3 (0.9-3.2); Lymphocytes Percent Auto 36.4 % (18.3-44.2); Mean Corpuscular HGB Conc 30.3 g/dl (32-36); Mean Corpuscular Hemoglobin 28.6 pg (26-34); Mean Corpuscular Volume 94.5 fl (80-100); Mean Platelet Volume 10.8 fl (7.4-10.4); Monocytes Absolute Auto 0.4 K/mm3 (0.1-0.6); Monocytes Percent Auto 11.6 % (2.6-8.5); Neutrophils Absolute Auto 1.5 K/mm3 (1.3-6.7); Neutrophils Percent Auto 41.5 % (45.5-73.1); Platelet Count Result 261 k/mm3 (150-375); Red Blood Count 3.11 M/mm3 (4.2-5.4); Red Cell Distribution Width 19.6 % (11.5-14.5); White Blood Count 3.6 K/mm3 (4.5-10.0)
[2023-04-20 06:34] LABS: Alanine Aminotransferase 35 U/L (6-35); Albumin Level 3.3 g/dL (3.5-5.1); Alkaline Phosphatase 90 U/L (38-126); Anion Gap 4 mmol/L (8-16); Aspartate Amino Transferase 45 U/L (14-36); Bilirubin,Total 0.9 mg/dL (0.2-1.3); Blood Urea Nitrogen 20 mg/dL (7-17); Calcium 9.8 mg/dL (8.4-10.2); Carbon Dioxide 29 mmol/L (22-30); Chloride 102 mmol/L (98-107); Estimated CRCL calculation 27 ml/min; Estimated Glomerular Filt Rate 31; Glucose 92 mg/dL (65-110); Magnesium 1.7 mg/dL (1.6-2.3); Potassium 4.1 mmol/L (3.4-5.0); Sodium 135 mmol/L (137-145)
[2023-04-20] MEDS: CYANOCOBALAMIN 1,000 MCG TABLET 2000 MCG PO (08:35)
[2023-04-20] MEDS: GABAPENTIN 100 MG CAPSULE 200 MG PO ×3 (08:35→17:47)
[2023-04-20] MEDS: AMIODARONE HCL 200 MG TABLET 400 MG PO (08:36)
[2023-04-20] MEDS: EZETIMIBE 10 MG TABLET PO (08:36)
[2023-04-20] MEDS: SERTRALINE HCL 50 MG TABLET PO (08:36)
[2023-04-20] MEDS: CHOLECALCIFEROL 1,000 UNITS TABLET 1000 UNITS PO (08:37)
[2023-04-20] MEDS: PANTOPRAZOLE 40 MG TABLET PO ×2 (08:37→20:48)
[2023-04-20] MEDS: METOPROLOL SUCCINATE EXT REL 25 MG TABCR PO (08:37)
[2023-04-20] MEDS: DICLOFENAC SODIUM 1% 100 GM GEL (*BKC) 1 APPLIC TOPICAL ×3 (08:37→20:48)
--- NOTE | 2023-04-20 11:15 | PM.IMPN ---
Progress Note: A&P Assessment and Plan (1) Coronary artery disease: Code(s): I25.10 - Atherosclerotic heart disease of [place] coronary artery without angina pectoris Status: Acute (2) Chronic anemia: Code(s): D64.9 - Anemia, unspecified Status: Acute (3) Chronic kidney disease: Code(s): N18.9 - Chronic kidney disease, unspecified Status: Acute (4) Atrial fibrillation with RVR: Code(s): I48.91 - Unspecified atrial fibrillation Status: Acute (5) Left arm cellulitis: Code(s): L03.114 - Cellulitis of left upper limb Status: Acute (6) Fall: Code(s): W19.XXXA - Unspecified fall, initial encounter Status: Acute (7) Age-related osteoporosis without current pathological fracture: Onset Date: ~11/2017 Code(s): M81.0 - Age-related osteoporosis without current pathological fracture Status: Acute Plan # Afib rvr Appreciate cardiology consultation. Discussed pt with Dr. Yaneli Perry from Cardiology Pt placed on amiodarone drip now to oral amiodarone. on metoprolol back to sinus rhythm now eliquis on hold for gi workup. Plan for EGD colonoscopy in a.m. # Apical variant hypertrophic cardiomyopathy/ fu with cardiology as op basis. # HF with preserved EF: Cardiac MRI 07/2022 from [facility] RV nl size/systolic function. LVEF 54%, No LVOT, LV apex 1.7 cm suggest of apical HCM, increased T1 signal in apex indicative of fibrosis, ctm blood pressure, ideally normotensive to keep out of diastolic chf on daily lasix 20 mg qd. bp controlled with metoprolol. # CAD with [place] in August 2012, hx of cabg 2 vessel again htn monitoring, now on eliquis # CLAUDIA on CKD Stage 1 Baseline 1.2 in early 2022 to 1.7 01/09/23 Cr up again. recheck and monitor # Hx of mild normocytic anemia related to anemia of CKD, chronic disease, or possible myelodyslastic syndrome not worked up monitor 04/17: talked to son. She has plans for elective EGD in about 1 week for c/f UGI bleed in recent hx. No GI bleed on this admission. GI consulted here. plan for EGD/colonoscopy coming friday. # Hx of vertigo from possible orthostatic hypotension repeat levels again. give IVF if necessary # L hip hematoma 04/17: XR neg for fracture. Started norco for hip pain. pt has a hx of reactions to various pain medications, not able to describe individually each reaction. IMPRESSION: 1. Mild left hip osteoarthritis. No acute osseous abnormality. 2. Severe osteoarthritis at the right hip. # Deconditioning 04/17: ct pt/ot. eval for dc back to ARU. Medically stable. Subjective Date/time seen: 04/20/23 11:15 Interval history: No overnight events. Plans for endoscopy noted on Friday. Patient agreeable. H&H remains stable. Denies any shortness of breath or chest pain. Review of Systems Review of Systems: All systems reviewed & are unremarkable except as noted in HPI and below Exam Narrative: General:?Nontoxic appearing elderly female, in no acute distress. HEENT:?Wearing corrective lenses. PERRL, EOMI. Sclera anicteric. Tacky mucous membranes. Neck:??Supple. No JVD. Respiratory:?Lungs are clear to auscultation bilaterally. Cardiovascular:?regular rate and rhythm Gastrointestinal:??Abdomen is soft, nontender, and nondistended with positive bowel sounds. Skin:??Warm and dry.? No rash or lesions on limited exam. Extremities:??No cyanosis, clubbing, or significant edema. Radial and pedal pulses intact. Neurological:??Alert.? Cranial nerves 2-12 are grossly intact. No gross focal deficits to casual conversation. Psychiatric:??Pleasant and cooperative with normal mood and affect.? Judgment and insight intact. Objective Data Vital Signs Vital Signs: Vital Signs - 24 hr 04/19/23 14:30 04/19/23 16:00 04/19/23 20:00 Temperature 99.3 F Pulse Rate 61 66 Respiratory Rate 18 Blood Pressure 100/60 Pulse Oximetry 94 Oxygen Delivery Room Air 04/19/23 21:18 04/19/23 20:00 11
--- NOTE | 2023-04-20 14:16 | WPDGIPROGNO ---
Progress Note: A&P Assessment and Plan (1) Occult blood in stools: Code(s): R19.5 - Other fecal abnormalities Status: Acute Assessment and Plan: h/h stable now egd and colonoscopy tomorrow, bowel prep this evening blood thinner is on hold (2) Acute on chronic anemia: Code(s): D64.9 - Anemia, unspecified Status: Acute Assessment and Plan: eliquis on hold no overt gib but had + FOBT scopes tomorrow (3) Atrial fibrillation with RVR: Code(s): I48.91 - Unspecified atrial fibrillation Status: Acute Assessment and Plan: back on normal rhythm cardiology on board (4) Coronary artery disease: Code(s): I25.10 - Atherosclerotic heart disease of [place] coronary artery without angina pectoris Status: Acute Subjective Date/time seen: 04/20/23 14:16 Interval history: she is comfortable, no new issues Review of Systems Review of Systems: All systems reviewed & are unremarkable except as noted in HPI and below Exam Const: General: comfortable and no acute distress HENMT: Face/Nose/Sinus: Normal nares present Eyes: General: appearance normal, both eyes and all related structures Neck: Neck: supple Resp: Auscultation: clear to auscultation bilaterally Cardio: Rate: regular rate Rhythm: regular rhythm GI: Inspection: non-distended GI Palp: Yes Soft to palpation and No Tenderness to palpation present (GI) Auscultation: normal bowel sounds Skin: General skin exam: normal color Neuro: Speech: normal speech Motor exam (neuro): 5/5 motor strength present throughout Extrem: General: normal to inspection Psych: Mental Status: mental status grossly normal Objective Data Vital Signs Vital Signs: Vital Signs - 24 hr 04/19/23 16:00 04/19/23 20:00 04/19/23 21:18 Temperature 97.5 F L Pulse Rate 66 69 Respiratory Rate 16 Blood Pressure 90/47 L Pulse Oximetry 98 Oxygen Delivery Room Air 04/19/23 20:00 04/20/23 00:00 04/20/23 04:00 Temperature Pulse Rate 67 62 61 Respiratory Rate Blood Pressure Pulse Oximetry Oxygen Delivery 04/20/23 05:40 04/20/23 05:40 04/20/23 08:36 Temperature 97 F L 97 F L Pulse Rate 66 83 62 Respiratory Rate 18 18 Blood Pressure 123/61 113/71 Pulse Oximetry 95 97 Oxygen Delivery 04/20/23 08:37 04/20/23 08:00 04/20/23 11:00 Temperature Pulse Rate 62 Respiratory Rate Blood Pressure 113/62 Pulse Oximetry 96 Oxygen Delivery Room Air 04/20/23 11:05 04/20/23 11:10 04/20/23 14:00 Temperature 97.9 F Pulse Rate 56 L Respiratory Rate 16 Blood Pressure 135/60 123/67 108/50 L Pulse Oximetry 98 Oxygen Delivery Intake/Output Intake/Output: Intake & Output 04/17/23 04/18/23 04/19/23 04/20/23 23:59 23:59 23:59 22:59 Intake Total 1680 2000 830 230 Output Total 300 1300 1000 Balance 1380 700 -170 230 Meds/Results Medications: Active Medications Generic Name Dose Route Start Last Admin Trade Name Freq PRN Reason Stop Dose Admin Hydrocodone Bitart/Acetaminophen 1 tab 04/17/23 10:26 04/19/23 18:37 Hydrocodone/Acetaminophen (*Crx) 5-325 Mg Tablet PO 1 tab Q4H PRN Administration Pain Rated 4-6 Amiodarone HCl 400 mg 04/16/23 09:00 04/20/23 08:36 Amiodarone Hcl 200 Mg Tablet PO 400 mg DAILY AGUS Administration Apixaban 5 mg 04/16/23 12:05 04/17/23 21:58 Apixaban 5 Mg Tablet PO 5 mg Q12HR AGUS Administration Atorvastatin Calcium 80 mg 04/15/23 21:00 04/19/23 20:21 Atorvastatin 40 Mg Tablet PO 80 mg HS AGUS Administration Bisacodyl 10 mg 04/15/23 14:57 Bisacodyl 10 Mg Suppository RECTAL DAILY PRN Constipation Bisacodyl 20 mg 04/20/23 16:00 Bisacodyl 5 Mg Tablet Ec PO 04/20/23 16:01 ONCE ONE Calcium Carbonate 500 mg 04/16/23 09:00 04/20/23 08:37 Calcium/Vitamin D 500 Mg Tablet PO 500 mg DAILY AGUS Administration Cyanocobalamin 2,000 mcg 11
[2023-04-20] MEDS: BISACODYL 5 MG TABLET EC 20 MG PO (18:26)
[2023-04-20] MEDS: polyethylene glycoL 3350 238 GM BOTTLE PO (18:26)
[2023-04-20] MEDS: ATORVASTATIN 40 MG TABLET 80 MG PO (20:47)
[2023-04-21] VITALS (17 sets, daily range): BP systolic 81–132; BP diastolic 40–60; PULSE 60–87; RESP 16–22; TEMP 35.9–36.5; O2SAT 95–100
[2023-04-21] MEDS: MAGNESIUM CITRATE 300 ML BTL PO ×2 (03:12→06:24)
[2023-04-21] MEDS: ONDANSETRON INJ 4 MG/2 ML VIAL IV PUSH (04:35)
--- NOTE | 2023-04-21 06:18 | PC.NURSE ---
Informed GI lab and MD Christianson that pt bms are not clear.
[2023-04-21 06:32] LABS: Basophils Absolute Auto 0.1 K/mm3 (0.0-0.1); Basophils Percent Auto 1.1 % (0.2-1.2); Eosinophils Absolute Auto 0.4 K/mm3 (0-0.3); Hematocrit 32.5 % (37.0-47.0); Hemoglobin 10.1 g/dL (12.0-15.0); Immature Granulocyte Absolute 0.01 K/mm3 (0.00-0.031); Immature Granulocyte Percent A 0.2 % (0-0.5); Lymphocytes Absolute Auto 0.88 K/mm3 (0.9-3.2); Lymphocytes Percent Auto 19.6 % (18.3-44.2); Mean Corpuscular HGB Conc 31.1 g/dl (32-36); Mean Corpuscular Hemoglobin 29.4 pg (26-34); Mean Corpuscular Volume 94.5 fl (80-100); Mean Platelet Volume 11.2 fl (7.4-10.4); Monocytes Absolute Auto 0.5 K/mm3 (0.1-0.6); Monocytes Percent Auto 11.6 % (2.6-8.5); Neutrophils Absolute Auto 2.7 K/mm3 (1.3-6.7); Neutrophils Percent Auto 59.5 % (45.5-73.1); Platelet Count Result 286 k/mm3 (150-375); Red Blood Count 3.44 M/mm3 (4.2-5.4); Red Cell Distribution Width 19.2 % (11.5-14.5); White Blood Count 4.5 K/mm3 (4.5-10.0)
[2023-04-21] MEDS: HYDROcodone/acetaminophen (*CRX) 5-325 MG TABLET 1 TAB PO ×2 (06:48→20:03)
[2023-04-21 06:52] LABS: Alanine Aminotransferase 35 U/L (6-35); Albumin Level 3.5 g/dL (3.5-5.1); Alkaline Phosphatase 102 U/L (38-126); Anion Gap 5 mmol/L (8-16); Aspartate Amino Transferase 41 U/L (14-36); Bilirubin,Total 0.8 mg/dL (0.2-1.3); Blood Urea Nitrogen 14 mg/dL (7-17); Calcium 10.4 mg/dL (8.4-10.2); Carbon Dioxide 29 mmol/L (22-30); Chloride 102 mmol/L (98-107); Estimated CRCL calculation 34 ml/min; Estimated Glomerular Filt Rate 44; Glucose 106 mg/dL (65-110); Magnesium 1.7 mg/dL (1.6-2.3); Potassium 4.2 mmol/L (3.4-5.0); Sodium 136 mmol/L (137-145)
[2023-04-21] MEDS: GABAPENTIN 100 MG CAPSULE 200 MG PO ×2 (08:48→17:17)
[2023-04-21] MEDS: AMIODARONE HCL 200 MG TABLET 400 MG PO (08:49)
[2023-04-21] MEDS: EZETIMIBE 10 MG TABLET PO (08:50)
[2023-04-21] MEDS: METOPROLOL SUCCINATE EXT REL 25 MG TABCR PO (08:50)
[2023-04-21] MEDS: SERTRALINE HCL 50 MG TABLET PO (08:50)
[2023-04-21] MEDS: PANTOPRAZOLE 40 MG TABLET PO ×2 (08:50→20:04)
--- NOTE | 2023-04-21 09:39 | PCPTNOTE ---
Patient declined treatment this session due to bowel prep for procedure this date.
--- NOTE | 2023-04-21 10:22 | PCNFU ---
Nutrition Follow-Up Complete: Severe protein calorie malnutrition related to acute illness, hospitalizations as evidenced by weight loss -14%/1 month; inadequate intake <75% meals >1 month; moderate muscle wasting and fat loss Goal:Improve PO intake to 50% meals and supplements Maintain weight during admission Pt current nutrition is NPO today for endoscopy. Nutrition recommendation: Advance diet when appropriate, resume nutrition ice cream BID Last recorded weight is 72.2 kg. Bowel Motility: +BM 04/21 Labs Reviewed: Hgb:10.1, HCT:32.5, NA:136, GFR:44. Cr:1.2 Meds Noted: eliquis, lactated ringers, protonix Skin: no pressure ulcers noted Additional Notes: Pt was on a heart healthy diet with 50-75% intake, which had improved. Pt is NPO today for endoscopy. Recommend to resume diet when appropriate, resume nutrition ice cream cups BID for supplementation. Monitor intakes, weights, labs, supplement tolerance, plan of care Follow up in 3 days
[2023-04-21] MEDS: LACTATED RINGERS 1,000 ML 150 ML IV CONT (13:08)
--- NOTE | 2023-04-21 13:24 | PCPTNOTE ---
The patient treatment was not able to be completed on 04/21/2023 due to patient out of the room for a procedure. Will plan to continue treatment per plan of care.
--- NOTE | 2023-04-21 13:30 | WPDANESEPPF ---
Anes - Initial Pre Proc Eval Procedure: Operation Date: 04/21/23 11:00 Proposed Procedures p Esophagogastroduodenoscopy & Colonoscopy - Tre Weinberg MD Date/Time: 04/21/23 13:30 Surgeon: Tima Ruth MD Pre Op Diagnosis: Afib RVR Patient Data Age: 78 Gender: F Height: 1.63 m Weight: 72.2 kg Last Vital Signs Temp 96.8 F L 04/21/23 12:43 Pulse 68 04/21/23 12:43 Resp 20 04/21/23 12:43 BP 105/60 04/21/23 12:43 Pulse Ox 97 04/21/23 12:43 O2 Del Method Room Air 04/21/23 12:43 Allergies Allergy/AdvReac Type Severity Reaction Status Date / Time codeine Allergy Unknown Anaphylaxis Verified 04/21/23 12:42 Latex, Natural Rubber Allergy Unknown SKIN Verified 04/21/23 12:42 IRRITATION nitroglycerin AdvReac Severe Hypotension Verified 04/21/23 12:42 tramadol AdvReac Mild Nausea and Verified 04/21/23 12:42 Vomiting, HEADACHE, DIZZINESS Home Medications Medication Instructions Recorded Confirmed Type acetaminophen 500 mg tablet 1,000 mg PO Q6H PRN Pain (Scale 04/02/22 04/15/23 History (Tylenol Extra Strength) Score 1-3) linaclotide 145 mcg capsule 145 mcg PO DAILY PRN Constipation 10/21/22 04/15/23 Rx (Linzess) #90 caps alendronate 70 mg tablet 70 mg PO WEEKLY #13 tabs 11/07/22 04/15/23 Rx ezetimibe 10 mg tablet 10 mg PO DAILY #30 tabs 11/14/22 04/15/23 Rx ondansetron HCl 4 mg tablet 4 mg PO Q8H PRN Nausea And Vomiting 02/02/23 04/15/23 History amiodarone 200 mg tablet 400 mg PO DAILY 04/15/23 04/15/23 History atorvastatin 80 mg tablet 80 mg PO HS 04/15/23 04/15/23 History bisacodyl 10 mg rectal suppository 10 mg RECTAL DAILY PRN Constipation 04/15/23 04/15/23 History (Dulcolax (bisacodyl)) calcium carbonate 500 mg-vitamin 1 tablet PO DAILY 04/15/23 04/15/23 History D3 5 mcg (200 unit) tablet (Oyster Shell Calcium-Vitamin D3) cholecalciferol (vitamin D3) 25 25 mcg PO DAILY 04/15/23 04/15/23 History mcg (1,000 unit) tablet cyanocobalamin (vitamin B-12) 2,000 mcg PO DAILY 04/15/23 04/15/23 History 1,000 mcg tablet diclofenac sodium 1 % topical gel 2 g topical TID 04/15/23 04/15/23 History furosemide 20 mg tablet 20 mg PO DAILY 04/15/23 04/15/23 History gabapentin 100 mg capsule 200 mg PO TID 04/15/23 04/15/23 History metoprolol succinate 25 mg 25 mg PO DAILY 04/15/23 04/15/23 History tablet,extended release 24 hr metoprolol tartrate 25 mg tablet 25 mg PO DAILY PRN Hypertension 04/15/23 04/15/23 History pantoprazole 40 mg tablet,delayed 40 mg PO QAM 04/15/23 04/15/23 History release sertraline 50 mg tablet 50 mg PO DAILY 04/15/23 04/15/23 History Laboratory Tests 04/21/23 06:19 WBC 4.5 K/mm3 (4.5-10.0) RBC 3.44 L M/mm3 (4.2-5.4) Hgb 10.1 L g/dL (12.0-15.0) Hct 32.5 L % (37.0-47.0) MCV 94.5 fl (80-100) MCH 29.4 pg (26-34) MCHC 31.1 L g/dl (32-36) RDW 19.2 H % (11.5-14.5) Plt Count 286 k/mm3 (150-375) MPV 11.2 H fl (7.4-10.4) Immature Gran % (Auto) 0.2 % (0-0.5) Neut % (Auto) 59.5 % (45.5-73.1) Lymph % (Auto) 19.6 % (18.3-44.2) Webb % (Auto) 11.6 H % (2.6-8.5) Eos % (Auto) 8.0 H % (0-4.4) Baso % (Auto) 1.1 % (0.2-1.2) Lymph # (Auto) 0.88 L K/mm3 (0.9-3.2) Webb # (Auto) 0.5 K/mm3 (0.1-0.6) Eos # (Auto) 0.4 H K/mm3 (0-0.3) Baso # (Auto) 0.1 K/mm3 (0.0-0.1) Abs Immat Gran (auto) 0.01 K/mm3 (0.00-0.031) Absolute Neuts (auto) 2.7 K/mm3 (1.3-6.7) Absolute Nucleated RBC 0.0 K/mm3 (0.0-0.012) Nucleated RBC % 0.0 % (0.0-0.2) Sodium 136 L mmol/L (137-145) Potassium 4.2 mmol/L (3.4-5.0) Chloride 102 mmol/L (98-107) Carbon Dioxide 29 mmol/L (22-30) Anion Gap 5 L mmol/L (8-16) BUN 14 D mg/dL (7-17) Creatinine 1.20 H mg/dL (0.7-1.0) Estim Creat Clear Calc 34 ml/min Estimated GFR 44 L (59 - ) Glucose 106 mg/dL (65-110) Calcium
[2023-04-21] MEDS: BENZOCAINE (*SP) 60 ML SPRAY CAN (HURRICAINE) 1 SPRAY MUCOUS MEM (13:35)
--- NOTE | 2023-04-21 13:45 | SUR.OPER ---
EGD: 5101-1836 COLON: Start 1349
[2023-04-21] MEDS: CYANOCOBALAMIN 1,000 MCG TABLET 2000 MCG PO (17:18)
[2023-04-21] MEDS: CHOLECALCIFEROL 1,000 UNITS TABLET 1000 UNITS PO (17:18)
--- NOTE | 2023-04-21 18:20 | PM.IMPN ---
Progress Note: A&P Assessment and Plan (1) Coronary artery disease: Code(s): I25.10 - Atherosclerotic heart disease of [place] coronary artery without angina pectoris Status: Acute (2) Chronic anemia: Code(s): D64.9 - Anemia, unspecified Status: Acute (3) Chronic kidney disease: Code(s): N18.9 - Chronic kidney disease, unspecified Status: Acute (4) Atrial fibrillation with RVR: Code(s): I48.91 - Unspecified atrial fibrillation Status: Acute (5) Left arm cellulitis: Code(s): L03.114 - Cellulitis of left upper limb Status: Acute (6) Fall: Code(s): W19.XXXA - Unspecified fall, initial encounter Status: Acute (7) Age-related osteoporosis without current pathological fracture: Onset Date: ~11/2017 Code(s): M81.0 - Age-related osteoporosis without current pathological fracture Status: Acute Plan # Afib rvr Appreciate cardiology consultation. Discussed pt with Dr. Yaneli Perry from Cardiology Pt placed on amiodarone drip now to oral amiodarone. on metoprolol back to sinus rhythm now eliquis on hold for gi workup. EGD with hiatal hernia Colonoscopy with diverticulosis internal hemorrhoids Resume Eliquis # Apical variant hypertrophic cardiomyopathy/ fu with cardiology as op basis. # HF with preserved EF: Cardiac MRI 07/2022 from [facility] RV nl size/systolic function. LVEF 54%, No LVOT, LV apex 1.7 cm suggest of apical HCM, increased T1 signal in apex indicative of fibrosis, ctm blood pressure, ideally normotensive to keep out of diastolic chf on daily lasix 20 mg qd. bp controlled with metoprolol. Orthostatic hypotension Will give gentle fluid # CAD with [place] in August 2012, hx of cabg 2 vessel again htn monitoring, now on eliquis # CLAUDIA on CKD Stage 1 Baseline 1.2 in early 2022 to 1.7 01/09/23 Cr up again. recheck and monitor # Hx of mild normocytic anemia related to anemia of CKD, chronic disease, or possible myelodyslastic syndrome not worked up monitor 04/17: talked to son. She has plans for elective EGD in about 1 week for c/f UGI bleed in recent hx. No GI bleed on this admission. GI consulted here. EGD and colonoscopy done 04/21/2023 # Hx of vertigo from possible orthostatic hypotension repeat levels again. give IVF if necessary # L hip hematoma 04/17: XR neg for fracture. Started norco for hip pain. pt has a hx of reactions to various pain medications, not able to describe individually each reaction. IMPRESSION: 1. Mild left hip osteoarthritis. No acute osseous abnormality. 2. Severe osteoarthritis at the right hip. # Deconditioning 04/17: ct pt/ot. eval for dc back to ARU. Medically stable. Subjective Date/time seen: 04/21/23 18:20 Interval history: Patient underwent endoscopy. She is feeling a bit dizzy orthostatic was positive this morning. Review of Systems Review of Systems: All systems reviewed & are unremarkable except as noted in HPI and below Exam Narrative: General:?Nontoxic appearing elderly female, in no acute distress. HEENT:?Wearing corrective lenses. PERRL, EOMI. Sclera anicteric. Tacky mucous membranes. Neck:??Supple. No JVD. Respiratory:?Lungs are clear to auscultation bilaterally. Cardiovascular:?regular rate and rhythm Gastrointestinal:??Abdomen is soft, nontender, and nondistended with positive bowel sounds. Skin:??Warm and dry.? No rash or lesions on limited exam. Extremities:??No cyanosis, clubbing, or significant edema. Radial and pedal pulses intact. Neurological:??Alert.? Cranial nerves 2-12 are grossly intact. No gross focal deficits to casual conversation. Psychiatric:??Pleasant and cooperative with normal mood and affect.? Judgment and insight intact. Objective Data Vital Signs Vital Signs: Vital Signs - 24 hr 04/20/23 19:52 04/20/23 20:49 04/20/23 22:00 Temperature 99.1 F 97.8 F Pulse Rate 64 63 Respiratory Rate 18 18 Blood Pressure 132/60 133/60 Pulse Oximetry
[2023-04-21] MEDS: SODIUM CHLORIDE 0.9% IV 1,000 ML 60 ML IV CONT (19:50)
[2023-04-21] MEDS: DICLOFENAC SODIUM 1% 100 GM GEL (*BKC) 1 APPLIC TOPICAL ×2 (19:54→20:05)
[2023-04-21] MEDS: ATORVASTATIN 40 MG TABLET 80 MG PO (20:04)
[2023-04-22] VITALS (10 sets, daily range): BP systolic 95–117; BP diastolic 41–76; PULSE 55–62; RESP 16–18; TEMP 35.9–36.8; O2SAT 94–98
[2023-04-22] MEDS: HYDROcodone/acetaminophen (*CRX) 5-325 MG TABLET 1 TAB PO ×2 (05:00→20:53)
[2023-04-22 07:03] LABS: Basophils Percent Auto 1.2 % (0.2-1.2); Eosinophils Absolute Auto 0.2 K/mm3 (0-0.3); Eosinophils Percent Auto 7.1 % (0-4.4); Hematocrit 27.8 % (37.0-47.0); Hemoglobin 8.4 g/dL (12.0-15.0); Lymphocytes Absolute Auto 0.99 K/mm3 (0.9-3.2); Lymphocytes Percent Auto 29.4 % (18.3-44.2); Mean Corpuscular HGB Conc 30.2 g/dl (32-36); Mean Corpuscular Hemoglobin 29.2 pg (26-34); Mean Corpuscular Volume 96.5 fl (80-100); Mean Platelet Volume 12.1 fl (7.4-10.4); Monocytes Absolute Auto 0.5 K/mm3 (0.1-0.6); Monocytes Percent Auto 13.4 % (2.6-8.5); Neutrophils Absolute Auto 1.7 K/mm3 (1.3-6.7); Neutrophils Percent Auto 48.9 % (45.5-73.1); Platelet Count Result 273 k/mm3 (150-375); Red Blood Count 2.88 M/mm3 (4.2-5.4); Red Cell Distribution Width 19.1 % (11.5-14.5); White Blood Count 3.4 K/mm3 (4.5-10.0)
[2023-04-22 07:21] LABS: Anion Gap 3 mmol/L (8-16); Blood Urea Nitrogen 15 mg/dL (7-17); Calcium 9.5 mg/dL (8.4-10.2); Carbon Dioxide 29 mmol/L (22-30); Chloride 104 mmol/L (98-107); Estimated CRCL calculation 23 ml/min; Estimated Glomerular Filt Rate 27; Glucose 89 mg/dL (65-110); Magnesium 2.2 mg/dL (1.6-2.3); Potassium 3.9 mmol/L (3.4-5.0); Sodium 136 mmol/L (137-145)
--- NOTE | 2023-04-22 08:01 | WPDANESPN ---
Anes - Prog Note Post-Op Date/Time: 04/22/23 08:01 Cardiovascular status: normal Respiratory status: normal Airway patency: baseline Mental status: baseline Post-Op hydration status: normal Vital Signs: Last Vital Signs Temp 35.9 C L 04/22/23 06:00 Pulse 62 04/22/23 06:00 Resp 16 04/22/23 06:00 BP 99/44 L 04/22/23 06:00 Pulse Ox 94 04/22/23 06:00 O2 Del Method Room Air 04/21/23 20:00 Pain Score (VAS): 0 I/O: Intake & Output 04/21/23 04/22/23 04/22/23 23:59 07:59 15:59 Intake Total 670 100 Balance 670 100 Laboratory Tests 04/22/23 06:37 04/22/23 06:37 04/22/23 06:37 WBC 3.4 L RBC 2.88 L Hgb 8.4 L Hct 27.8 L MCV 96.5 MCH 29.2 MCHC 30.2 L RDW 19.1 H Plt Count 273 MPV 12.1 H Immature Gran % (Auto) 0.0 Neut % (Auto) 48.9 Lymph % (Auto) 29.4 [place] % (Auto) 13.4 H Eos % (Auto) 7.1 H Baso % (Auto) 1.2 Lymph # (Auto) 0.99 [place] # (Auto) 0.5 Eos # (Auto) 0.2 Baso # (Auto) 0.0 Abs Immat Gran (auto) 0.00 Absolute Neuts (auto) 1.7 Absolute Nucleated RBC 0.0 Nucleated RBC % 0.0 Sodium 136 L Potassium 3.9 Chloride 104 Carbon Dioxide 29 Anion Gap 3 L BUN 15 Creatinine 1.80 H Estim Creat Clear Calc 23 Estimated GFR 27 L Glucose 89 Calcium 9.5 Magnesium 2.2 Post-procedural complaints: none Patient Feedback: Patient satisfied with anesthetic care.
[2023-04-22] MEDS: GABAPENTIN 100 MG CAPSULE 200 MG PO ×3 (09:55→17:20)
[2023-04-22] MEDS: EZETIMIBE 10 MG TABLET PO (09:55)
[2023-04-22] MEDS: AMIODARONE HCL 200 MG TABLET 400 MG PO (09:56)
[2023-04-22] MEDS: PANTOPRAZOLE 40 MG TABLET PO ×2 (09:56→20:44)
[2023-04-22] MEDS: CHOLECALCIFEROL 1,000 UNITS TABLET 1000 UNITS PO (09:56)
[2023-04-22] MEDS: CYANOCOBALAMIN 1,000 MCG TABLET 2000 MCG PO (09:56)
[2023-04-22] MEDS: SERTRALINE HCL 50 MG TABLET PO (09:56)
[2023-04-22] MEDS: DICLOFENAC SODIUM 1% 100 GM GEL (*BKC) 1 APPLIC TOPICAL ×3 (10:01→20:46)
--- NOTE | 2023-04-22 10:20 | PCPTNOTE ---
Attempted to see patient for PT, however per SARAH: OT just got done working with patient blood pressures are low and just had to put patient back to bed. Patient unable to been seen for PT at this time.
--- NOTE | 2023-04-22 15:19 | PM.IMPN ---
Progress Note: A&P Assessment and Plan (1) Coronary artery disease: Code(s): I25.10 - Atherosclerotic heart disease of [place] coronary artery without angina pectoris Status: Acute (2) Chronic anemia: Code(s): D64.9 - Anemia, unspecified Status: Acute (3) Chronic kidney disease: Code(s): N18.9 - Chronic kidney disease, unspecified Status: Acute (4) Atrial fibrillation with RVR: Code(s): I48.91 - Unspecified atrial fibrillation Status: Acute (5) Left arm cellulitis: Code(s): L03.114 - Cellulitis of left upper limb Status: Acute (6) Fall: Code(s): W19.XXXA - Unspecified fall, initial encounter Status: Acute (7) Age-related osteoporosis without current pathological fracture: Onset Date: ~11/2017 Code(s): M81.0 - Age-related osteoporosis without current pathological fracture Status: Acute Plan # Afib rvr Appreciate cardiology consultation. Discussed pt with Dr. Yaneli Perry from Cardiology Pt placed on amiodarone drip now to oral amiodarone. on metoprolol back to sinus rhythm now eliquis on hold for gi workup. EGD with hiatal hernia Colonoscopy with diverticulosis internal hemorrhoids Resume Eliquis # Apical variant hypertrophic cardiomyopathy/ fu with cardiology as op basis. # HF with preserved EF: Cardiac MRI 07/2022 from [facility] RV nl size/systolic function. LVEF 54%, No LVOT, LV apex 1.7 cm suggest of apical HCM, increased T1 signal in apex indicative of fibrosis, ctm blood pressure, ideally normotensive to keep out of diastolic chf on daily lasix 20 mg qd. bp controlled with metoprolol. Orthostatic hypotension Gentle fluid today. Creatinine bumped up as well 1.8 from 1.2. Recheck and monitor in a.m.. # CAD with [place] in August 2012, hx of cabg 2 vessel again htn monitoring, now on eliquis # CLAUDIA on CKD Stage 1 Baseline 1.2 in early 2022 to 1.7 01/09/23 Cr up again. recheck and monitor # Hx of mild normocytic anemia related to anemia of CKD, chronic disease, or possible myelodyslastic syndrome not worked up monitor 04/17: talked to son. She has plans for elective EGD in about 1 week for c/f UGI bleed in recent hx. No GI bleed on this admission. GI consulted here. EGD and colonoscopy done 04/21/2023 # Hx of vertigo from possible orthostatic hypotension repeat levels again. give IVF as ordered # L hip hematoma 04/17: XR neg for fracture. Started norco for hip pain. pt has a hx of reactions to various pain medications, not able to describe individually each reaction. IMPRESSION: 1. Mild left hip osteoarthritis. No acute osseous abnormality. 2. Severe osteoarthritis at the right hip. # Deconditioning 04/17: ct pt/ot. eval for dc back to ARU. Medically stable. Subjective Date/time seen: 04/22/23 15:19 Interval history: Patient continues to feel dizzy when she stands up. Blood pressure also drops on orthostatic vital checks. Creatinine bumped up today. Review of Systems Review of Systems: All systems reviewed & are unremarkable except as noted in HPI and below Exam Narrative: General:?Nontoxic appearing elderly female, in no acute distress. HEENT:?Wearing corrective lenses. PERRL, EOMI. Sclera anicteric. Tacky mucous membranes. Neck:??Supple. No JVD. Respiratory:?Lungs are clear to auscultation bilaterally. Cardiovascular:?regular rate and rhythm Gastrointestinal:??Abdomen is soft, nontender, and nondistended with positive bowel sounds. Skin:??Warm and dry.? No rash or lesions on limited exam. Extremities:??No cyanosis, clubbing, or significant edema. Radial and pedal pulses intact. Neurological:??Alert.? Cranial nerves 2-12 are grossly intact. No gross focal deficits to casual conversation. Psychiatric:??Pleasant and cooperative with normal mood and affect.? Judgment and insight intact. Objective Data Vital Signs Vital Signs: Vital Signs - 24 hr 04/21/23 15:30 04/21/23 22:00 04/21/23 20:00 [place]
[2023-04-22] MEDS: ATORVASTATIN 40 MG TABLET 80 MG PO (20:44)
[2023-04-22] MEDS: APIXABAN 5 MG TABLET PO (20:44)
[2023-04-23] VITALS (14 sets, daily range): BP systolic 102–128; BP diastolic 44–57; PULSE 51–61; RESP 18–20; TEMP 35.7–36.8; O2SAT 98–100
[2023-04-23 05:53] LABS: Basophils Absolute Auto 0.1 K/mm3 (0.0-0.1); Basophils Percent Auto 1.6 % (0.2-1.2); Eosinophils Absolute Auto 0.3 K/mm3 (0-0.3); Eosinophils Percent Auto 6.7 % (0-4.4); Hematocrit 26.8 % (37.0-47.0); Immature Granulocyte Absolute 0.01 K/mm3 (0.00-0.031); Immature Granulocyte Percent A 0.3 % (0-0.5); Lymphocytes Absolute Auto 1.22 K/mm3 (0.9-3.2); Lymphocytes Percent Auto 31.5 % (18.3-44.2); Mean Corpuscular HGB Conc 29.9 g/dl (32-36); Mean Corpuscular Hemoglobin 29.2 pg (26-34); Mean Corpuscular Volume 97.8 fl (80-100); Mean Platelet Volume 11.4 fl (7.4-10.4); Monocytes Absolute Auto 0.5 K/mm3 (0.1-0.6); Monocytes Percent Auto 13.7 % (2.6-8.5); Neutrophils Absolute Auto 1.8 K/mm3 (1.3-6.7); Neutrophils Percent Auto 46.2 % (45.5-73.1); Platelet Count Result 225 k/mm3 (150-375); Red Blood Count 2.74 M/mm3 (4.2-5.4); White Blood Count 3.9 K/mm3 (4.5-10.0)
[2023-04-23 06:06] LABS: Alanine Aminotransferase 38 U/L (6-35); Albumin Level 2.9 g/dL (3.5-5.1); Alkaline Phosphatase 93 U/L (38-126); Anion Gap 2 mmol/L (8-16); Aspartate Amino Transferase 46 U/L (14-36); Bilirubin,Total 0.7 mg/dL (0.2-1.3); Blood Urea Nitrogen 16 mg/dL (7-17); Calcium 9.2 mg/dL (8.4-10.2); Carbon Dioxide 28 mmol/L (22-30); Chloride 105 mmol/L (98-107); Estimated CRCL calculation 23 ml/min; Estimated Glomerular Filt Rate 27; Glucose 87 mg/dL (65-110); Magnesium 2.3 mg/dL (1.6-2.3); Potassium 3.8 mmol/L (3.4-5.0); Sodium 135 mmol/L (137-145)
[2023-04-23 08:10] LABS: Burr Cells 2+ (NORMAL); Hypochromasia 1+ (NORMAL); Platelet Estimate Adequate (Adequate); Poikilocytosis 1+ (NORMAL); Schistocytes Rare (NORMAL)
[2023-04-23] MEDS: GABAPENTIN 100 MG CAPSULE 200 MG PO ×3 (10:12→17:36)
[2023-04-23] MEDS: EZETIMIBE 10 MG TABLET PO (10:13)
[2023-04-23] MEDS: CHOLECALCIFEROL 1,000 UNITS TABLET 1000 UNITS PO (10:14)
[2023-04-23] MEDS: CYANOCOBALAMIN 1,000 MCG TABLET 2000 MCG PO (10:14)
[2023-04-23] MEDS: PANTOPRAZOLE 40 MG TABLET PO ×2 (10:14→20:53)
[2023-04-23] MEDS: LINACLOTIDE 145 MCG CAPSULE PO (10:14)
[2023-04-23] MEDS: SERTRALINE HCL 50 MG TABLET PO (10:15)
[2023-04-23] MEDS: APIXABAN 5 MG TABLET PO ×2 (10:15→20:52)
[2023-04-23] MEDS: DICLOFENAC SODIUM 1% 100 GM GEL (*BKC) 1 APPLIC TOPICAL ×3 (10:16→20:53)
[2023-04-23] MEDS: SODIUM CHLORIDE 0.9% IV 1,000 ML 60 ML IV CONT (10:31)
--- NOTE | 2023-04-23 12:54 | PM.PNCARD ---
Progress Note: A&P Assessment and Plan (1) Atrial fibrillation with RVR: Code(s): I48.91 - Unspecified atrial fibrillation Status: Acute Assessment and Plan: Rate controlled without any significant bradycardia. Recommend to continue Amiodarone 400mg QD along with Metoprolol 25mg QD. Continue Eliquis for anticoagulation. (2) Coronary artery disease: Code(s): I25.10 - Atherosclerotic heart disease of [place] coronary artery without angina pectoris Status: Acute Assessment and Plan: Asymptomatic. Continue statin, Zetia, Metoprolol (3) Orthostatic hypotension: Code(s): I95.1 - Orthostatic hypotension Status: Acute Assessment and Plan: Has symptoms of orthostasis, which has been a chronic issue for the patient. Had an extensive negative workup done at [facility], however, she remained orthostatic with likely contributing factors of age, prolonged bed rest, and limited oral hydration. Will start Midodrine 5mg TID to see if this gives her symptomatic improvement. Avoid dehydration. Subjective Date/time seen: 04/23/23 12:54 Interval history: Reason for consult: Atrial fibrillation with RVR HPI: We are consulted for atrial fibrillation with RVR. This is a 77 year old female with paroxysmal atrial fibrillation that has been difficult to control, orthostatic hypotension, anemia, CAD s/p CABG, apical hypertrophic cardiomyopathy, hypertension, hyperlipidemia, chronic kidney disease. 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 Stafford at [facility]. Patient was here at [place] in February 2023 with difficult to control atrial fibrillation and ended up getting transferred to [facility] for further management. Patient had a long stay at [facility] and was admitted from 02/17/2023 to 03/21/2023 (discharge summary scanned in [place] chart and was personally reviewed). She was discharged on Amiodarone 400mg QD, Metoprolol 25QD and PRN Metoprolol before PT to prevent AFIB (hold for only HR less than 55bpm). The past few days, patient has had symptoms of lightheadedness/dizziness with therapy and was found with HR in the 150s for which she was sent to the ED for. In the ER, she was given Diltiazem 10mg IV x 1 without much change in her heart rate, however, her blood pressure dropped with it. She was then started on Amiodarone drip with improvement. This morning, patient reports she feels okay sitting in bed without lightheadedness/dizziness. Of note, patient has not been on anticoagulation for the past month due to issues with her anemia. Date of service 04/17: Patient had converted to sinus rhythm yesterday afternoon but went back into AFIB overnight, however, she remains in rate controlled AFIB with HR in the 45-50s. Patient reports pain in her hips, but otherwise denies chest pain, palpitations. Date of service 04/18/2023: Remains in sinus rhythm. From a cardiac perspective she feels okay. She has back pain but she has no chest pain, shortness of breath, syncope Date of service 04/19/2023: Still feels okay. No chest pain, shortness of breath. No swelling. Date of service 04/23/2023: We are reconsulted for concerns for symptomatic bradycardia. Patient reports lightheadedness/dizziness only with movement, particularly when trying to get up. Review of Systems Review of Systems: All systems reviewed & are unremarkable except as noted in HPI and below (HPI) Exam Const: General: no acute distress HENMT: Mouth: Yes moist mucous membranes Eyes: General: appearance normal, both eyes and all related structures Sclera: sclerae normal Neck: Neck: supple Resp: Effort & Inspection: normal respiratory effort Cardio: Rhythm: abnormal rhythm irregularly irregular Neuro: Speech: normal speech Psych: Mental Status: mental status grossly normal Affect: normal affect Objective Data Vital Signs Vital Signs: Vital Signs - 24 hr 04/22/23 14:00 04/22/23 16:00 04/22/23 21:21 Temperature 36.8 C 36.2 C L Pulse Rate 60 5
[2023-04-23] MEDS: MIDODRINE HCL 2.5 MG TABLET 5 MG PO ×2 (14:06→17:36)
[2023-04-23] MEDS: HYDROcodone/acetaminophen (*CRX) 5-325 MG TABLET 1 TAB PO (14:06)
--- NOTE | 2023-04-23 17:09 | PM.IMPN ---
Progress Note: A&P Assessment and Plan (1) Symptomatic bradycardia: Code(s): R00.1 - Bradycardia, unspecified Status: Acute Assessment and Plan: No new orders per cardiology Midodrine added for orthostatic hypotension (2) Coronary artery disease: Code(s): I25.10 - Atherosclerotic heart disease of [place] coronary artery without angina pectoris Status: Acute (3) Chronic anemia: Code(s): D64.9 - Anemia, unspecified Status: Acute (4) Chronic kidney disease: Code(s): N18.9 - Chronic kidney disease, unspecified Status: Acute (5) Atrial fibrillation with RVR: Code(s): I48.91 - Unspecified atrial fibrillation Status: Acute (6) Left arm cellulitis: Code(s): L03.114 - Cellulitis of left upper limb Status: Acute (7) Fall: Code(s): W19.XXXA - Unspecified fall, initial encounter Status: Acute (8) Age-related osteoporosis without current pathological fracture: Onset Date: ~11/2017 Code(s): M81.0 - Age-related osteoporosis without current pathological fracture Status: Acute Plan # Afib rvr Appreciate cardiology consultation. Discussed pt with Dr. Yaneli Perry from Cardiology Pt placed on amiodarone drip now to oral amiodarone. on metoprolol back to sinus rhythm now eliquis on hold for gi workup. Bradycardia, symptomatic. Will consult Cardiology about possible Amiodarone EGD with hiatal hernia Colonoscopy with diverticulosis internal hemorrhoids Resume Eliquis # Apical variant hypertrophic cardiomyopathy/ fu with cardiology as op basis. # HF with preserved EF: Cardiac MRI 07/2022 from [facility] RV nl size/systolic function. LVEF 54%, No LVOT, LV apex 1.7 cm suggest of apical HCM, increased T1 signal in apex indicative of fibrosis, ctm blood pressure, ideally normotensive to keep out of diastolic chf on daily lasix 20 mg qd. bp controlled with metoprolol. Orthostatic hypotension Gentle fluid today. Creatinine bumped up as well 1.8 from 1.2. Recheck and monitor in a.m.. # CAD with [place] in August 2012, hx of cabg 2 vessel again htn monitoring, now on eliquis # CLAUDIA on CKD Stage 1 Baseline 1.2 in early 2022 to 1.7 7/27/23 Cr up again. recheck and monitor # Hx of mild normocytic anemia related to anemia of CKD, chronic disease, or possible myelodyslastic syndrome not worked up monitor 04/17: talked to son. She has plans for elective EGD in about 1 week for c/f UGI bleed in recent hx. No GI bleed on this admission. GI consulted here. EGD and colonoscopy done 04/21/2023 # Hx of vertigo from possible orthostatic hypotension repeat levels again. give IVF as ordered # L hip hematoma 04/17: XR neg for fracture. Started norco for hip pain. pt has a hx of reactions to various pain medications, not able to describe individually each reaction. IMPRESSION: 1. Mild left hip osteoarthritis. No acute osseous abnormality. 2. Severe osteoarthritis at the right hip. # Deconditioning 04/17: ct pt/ot. eval for dc back to ARU. Medically stable. Subjective Date/time seen: 04/23/23 17:09 Interval history: Seen and examined today; concerns today are about dizziness when she stands up Review of Systems Review of Systems: no issues All systems reviewed & are unremarkable except as noted in HPI and below Cardiovascular: Cardiovascular: Reports lightheadedness Respiratory: Respiratory: Reports no additional respiratory complaints Gastrointestinal: Gastrointestinal: Reports no additional gastrointestinal complaints Genitourinary: Genitourinary: Reports no additional female genitourinary complaints Musculoskeletal: Musculoskeletal: Reports no additional musculoskeletal complaints Exam Narrative: General:?Nontoxic appearing elderly female, in no acute distress. HEENT:?Wearing corrective lenses. PERRL, EOMI. Sclera anicteric. Tacky mucous membranes. Neck:??Supple. No JVD. Respiratory:?Lungs are clear to auscultation b
[2023-04-23] MEDS: ATORVASTATIN 40 MG TABLET 80 MG PO (20:52)
[2023-04-24] VITALS (13 sets, daily range): BP systolic 117–133; BP diastolic 51–68; PULSE 43–59; RESP 14–18; TEMP 35.8–36.8; O2SAT 96–100
[2023-04-24] MEDS: SODIUM CHLORIDE 0.9% IV 1,000 ML 60 ML IV CONT ×2 (05:48→20:31)
[2023-04-24] MEDS: APIXABAN 5 MG TABLET PO ×2 (08:24→20:24)
[2023-04-24] MEDS: DICLOFENAC SODIUM 1% 100 GM GEL (*BKC) 1 APPLIC TOPICAL ×3 (08:25→20:25)
[2023-04-24] MEDS: GABAPENTIN 100 MG CAPSULE 200 MG PO ×3 (08:25→16:43)
[2023-04-24] MEDS: CHOLECALCIFEROL 1,000 UNITS TABLET 1000 UNITS PO (08:25)
[2023-04-24] MEDS: CYANOCOBALAMIN 1,000 MCG TABLET 2000 MCG PO (08:25)
[2023-04-24] MEDS: EZETIMIBE 10 MG TABLET PO (08:25)
[2023-04-24] MEDS: SERTRALINE HCL 50 MG TABLET PO (08:26)
[2023-04-24] MEDS: PANTOPRAZOLE 40 MG TABLET PO ×2 (08:26→20:24)
[2023-04-24] MEDS: MIDODRINE HCL 2.5 MG TABLET 5 MG PO ×3 (08:26→16:43)
--- NOTE | 2023-04-24 13:00 | PCNFU ---
Nutrition Follow-Up Complete: Severe protein calorie malnutrition related to acute illness, hospitalizations as evidenced by weight loss -14%/1 month; inadequate intake <75% meals >1 month; moderate muscle wasting and fat loss Goal:Improve PO intake to 50% meals and supplements Maintain weight during admission Pt current nutrition is Heart healthy, Ensure compact, nutrition ice cream cups BID. Nutrition recommendation: D/C supplements per pt request Last recorded weight is 76.6 kg. Bowel Motility: +BM 04/21 Labs Reviewed: Hgb:8.0, HCT:26.8, Alb:2.9, NA:135, GFR:27, Cr:1.8 Meds Noted: eliquis, protonix Skin: no skin issues noted Additional Notes: Pt continues on a heart healthy diet, intake improving, pt reports improving appetite. Charted intake is varied from 25-100%. Pt requesting supplements to be d/c'd as she will not drink them. Monitor intakes, weights, labs, plan of care Follow up in 5 days
--- NOTE | 2023-04-24 18:28 | PM.IMPN ---
Progress Note: A&P Assessment and Plan (1) Symptomatic bradycardia: Code(s): R00.1 - Bradycardia, unspecified Status: Acute Assessment and Plan: No new orders per cardiology Midodrine added for orthostatic hypotension 04/24/23: [facility] Cardiology input on the bradycardia which was said to dip as low as 40s last night; Amiodarone and Metoprolol held. Will Dc tomorrow if cardiology will give final recs (2) Coronary artery disease: Code(s): I25.10 - Atherosclerotic heart disease of [place] coronary artery without angina pectoris Status: Acute (3) Chronic anemia: Code(s): D64.9 - Anemia, unspecified Status: Acute (4) Chronic kidney disease: Code(s): N18.9 - Chronic kidney disease, unspecified Status: Acute (5) Atrial fibrillation with RVR: Code(s): I48.91 - Unspecified atrial fibrillation Status: Acute (6) Left arm cellulitis: Code(s): L03.114 - Cellulitis of left upper limb Status: Acute (7) Fall: Code(s): W19.XXXA - Unspecified fall, initial encounter Status: Acute (8) Age-related osteoporosis without current pathological fracture: Onset Date: ~11/2017 Code(s): M81.0 - Age-related osteoporosis without current pathological fracture Status: Acute Plan # Afib rvr Appreciate cardiology consultation. Discussed pt with Dr. Yaneli Perry from Cardiology Pt placed on amiodarone drip now to oral amiodarone. on metoprolol back to sinus rhythm now eliquis on hold for gi workup. Bradycardia, symptomatic. Will consult Cardiology about possible Amiodarone w/Metoprolol EGD with hiatal hernia Colonoscopy with diverticulosis internal hemorrhoids Resume Eliquis # Apical variant hypertrophic cardiomyopathy/ fu with cardiology as op basis. # HF with preserved EF: Cardiac MRI 07/2022 from [facility] RV nl size/systolic function. LVEF 54%, No LVOT, LV apex 1.7 cm suggest of apical HCM, increased T1 signal in apex indicative of fibrosis, ctm blood pressure, ideally normotensive to keep out of diastolic chf on daily lasix 20 mg qd. bp controlled with metoprolol. Orthostatic hypotension Gentle fluid today. Creatinine bumped up as well 1.8 from 1.2. Recheck and monitor in a.m.. # CAD with [place] in August 2012, hx of cabg 2 vessel again htn monitoring, now on eliquis # CLAUDIA on CKD Stage 1 Baseline 1.2 in early 2022 to 1.7 01/09/23 Cr up again. recheck and monitor # Hx of mild normocytic anemia related to anemia of CKD, chronic disease, or possible myelodyslastic syndrome not worked up monitor 04/17: talked to son. She has plans for elective EGD in about 1 week for c/f UGI bleed in recent hx. No GI bleed on this admission. GI consulted here. EGD and colonoscopy done 04/21/2023 # Hx of vertigo from possible orthostatic hypotension repeat levels again. give IVF as ordered # L hip hematoma 04/17: XR neg for fracture. Started norco for hip pain. pt has a hx of reactions to various pain medications, not able to describe individually each reaction. IMPRESSION: 1. Mild left hip osteoarthritis. No acute osseous abnormality. 2. Severe osteoarthritis at the right hip. # Deconditioning 04/17: ct pt/ot. eval for dc back to ARU. Medically stable. Time Spent With Patient Time with patient: 25 - 35 minutes Subjective Date/time seen: 04/24/23 18:28 Interval history: This is a 77-year-old female with history of DVT, hypertension, hyperlipidemia, paroxysmal atrial fibrillation, coronary artery disease status post coronary artery bypass grafting, hypertrophic cardiomyopathy, chronic kidney disease, and anemia presented to the emergency department via EMS from [place] for evaluation of an elevated heart rate. She is known to the hospitalist from fairly recent admissions. Initially hospitalized with a right radial fracture on 02/06/2023 and she was readmitted on 02/13/2023 for sepsis, MRSA bacteremia, left arm cellulitis, and atrial fibrillatio
[2023-04-24] MEDS: ATORVASTATIN 40 MG TABLET 80 MG PO (20:24)
[2023-04-24] MEDS: HYDROcodone/acetaminophen (*CRX) 5-325 MG TABLET 1 TAB PO (22:38)
[2023-04-25] VITALS (11 sets, daily range): BP systolic 113–140; BP diastolic 47–71; PULSE 47–67; RESP 16–18; TEMP 36.2–36.6; O2SAT 97–100
[2023-04-25] MEDS: MIDODRINE HCL 2.5 MG TABLET 5 MG PO ×3 (08:15→17:49)
[2023-04-25] MEDS: EZETIMIBE 10 MG TABLET PO (08:15)
[2023-04-25] MEDS: GABAPENTIN 100 MG CAPSULE 200 MG PO ×3 (08:15→17:49)
[2023-04-25] MEDS: CYANOCOBALAMIN 1,000 MCG TABLET 2000 MCG PO (08:16)
[2023-04-25] MEDS: PANTOPRAZOLE 40 MG TABLET PO ×2 (08:16→21:00)
[2023-04-25] MEDS: CHOLECALCIFEROL 1,000 UNITS TABLET 1000 UNITS PO (08:16)
[2023-04-25] MEDS: SERTRALINE HCL 50 MG TABLET PO (08:16)
[2023-04-25] MEDS: APIXABAN 5 MG TABLET PO ×2 (08:16→20:59)
[2023-04-25] MEDS: DICLOFENAC SODIUM 1% 100 GM GEL (*BKC) 1 APPLIC TOPICAL ×3 (08:17→20:59)
--- NOTE | 2023-04-25 10:45 | PCPTNOTE ---
Attempted to see patient for PT, however patient was working with OT.
[2023-04-25 13:32] LABS: Iron 55 ug/dL (37-170)
[2023-04-25 13:42] LABS: Percent Iron Saturation 22 % (20-50)
[2023-04-25 14:51] LABS: Basophils Absolute Auto 0.1 K/mm3 (0.0-0.1); Basophils Percent Auto 1.5 % (0.2-1.2); Eosinophils Absolute Auto 0.3 K/mm3 (0-0.3); Eosinophils Percent Auto 6.3 % (0-4.4); Hematocrit 30.4 % (37.0-47.0); Immature Granulocyte Absolute 0.01 K/mm3 (0.00-0.031); Immature Granulocyte Percent A 0.2 % (0-0.5); Immature Platelet Fraction Pct 4.2 % (0.9-11.2); Lymphocytes Absolute Auto 1.12 K/mm3 (0.9-3.2); Lymphocytes Percent Auto 27.2 % (18.3-44.2); Mean Corpuscular HGB Conc 29.6 g/dl (32-36); Mean Corpuscular Hemoglobin 29.2 pg (26-34); Mean Corpuscular Volume 98.7 fl (80-100); Monocytes Absolute Auto 0.4 K/mm3 (0.1-0.6); Monocytes Percent Auto 10.7 % (2.6-8.5); Neutrophils Absolute Auto 2.2 K/mm3 (1.3-6.7); Neutrophils Percent Auto 54.1 % (45.5-73.1); Platelet Count Result 277 k/mm3 (150-375); Red Blood Count 3.08 M/mm3 (4.2-5.4); Red Cell Distribution Width 18.8 % (11.5-14.5); White Blood Count 4.1 K/mm3 (4.5-10.0)
[2023-04-25 15:08] LABS: Alanine Aminotransferase 36 U/L (6-35); Albumin Level 3.3 g/dL (3.5-5.1); Alkaline Phosphatase 107 U/L (38-126); Anion Gap 9 mmol/L (8-16); Aspartate Amino Transferase 40 U/L (14-36); Bilirubin,Total 0.6 mg/dL (0.2-1.3); Blood Urea Nitrogen 9 mg/dL (7-17); Calcium 9.5 mg/dL (8.4-10.2); Carbon Dioxide 23 mmol/L (22-30); Chloride 106 mmol/L (98-107); Estimated CRCL calculation 42 ml/min; Estimated Glomerular Filt Rate 54; Glucose 88 mg/dL (65-110); Potassium 4.1 mmol/L (3.4-5.0); Sodium 138 mmol/L (137-145)
--- NOTE | 2023-04-25 16:55 | PM.IMPN ---
Progress Note: A&P Assessment and Plan (1) Symptomatic bradycardia: Code(s): R00.1 - Bradycardia, unspecified Status: Acute Assessment and Plan: No new orders per cardiology Midodrine added for orthostatic hypotension 04/24/23: [facility] Cardiology input on the bradycardia which was said to dip as low as 40s last night; Amiodarone and Metoprolol held. Will Dc tomorrow if cardiology will give final recs (2) Coronary artery disease: Code(s): I25.10 - Atherosclerotic heart disease of [place] coronary artery without angina pectoris Status: Acute (3) Chronic anemia: Code(s): D64.9 - Anemia, unspecified Status: Acute (4) Chronic kidney disease: Code(s): N18.9 - Chronic kidney disease, unspecified Status: Acute (5) Atrial fibrillation with RVR: Code(s): I48.91 - Unspecified atrial fibrillation Status: Acute (6) Left arm cellulitis: Code(s): L03.114 - Cellulitis of left upper limb Status: Acute (7) Fall: Code(s): W19.XXXA - Unspecified fall, initial encounter Status: Acute (8) Age-related osteoporosis without current pathological fracture: Onset Date: ~11/2017 Code(s): M81.0 - Age-related osteoporosis without current pathological fracture Status: Acute Plan # Afib rvr Appreciate cardiology consultation. Discussed pt with Dr. Yaneli Perry from Cardiology Pt placed on amiodarone drip now to oral amiodarone. on metoprolol back to sinus rhythm now eliquis on hold for gi workup. Bradycardia, symptomatic. Will consult Cardiology about possible Amiodarone w/Metoprolol EGD with hiatal hernia Colonoscopy with diverticulosis internal hemorrhoids Resume Eliquis # Apical variant hypertrophic cardiomyopathy/ fu with cardiology as op basis. # HF with preserved EF: Cardiac MRI 07/2022 from [facility] RV nl size/systolic function. LVEF 54%, No LVOT, LV apex 1.7 cm suggest of apical HCM, increased T1 signal in apex indicative of fibrosis, ctm blood pressure, ideally normotensive to keep out of diastolic chf on daily lasix 20 mg qd. bp controlled with metoprolol. Orthostatic hypotension, resolved continue Midodrine # CAD with [place] in August 2012, hx of cabg 2 vessel again htn monitoring, now on eliquis # CLAUDIA on CKD Stage 1 Baseline 1.2 resolved creatinine 1.0 # Hx of mild normocytic anemia related to anemia of CKD, chronic disease, or possible myelodyslastic syndrome not worked up monitor 04/17: talked to son. She has plans for elective EGD in about 1 week for c/f UGI bleed in recent hx. No GI bleed on this admission. GI consulted here. EGD and colonoscopy done 04/21/2023 # Hx of vertigo from possible orthostatic hypotension repeat levels again. give IVF as ordered # L hip hematoma 04/17: XR neg for fracture. Started norco for hip pain. pt has a hx of reactions to various pain medications, not able to describe individually each reaction. IMPRESSION: 1. Mild left hip osteoarthritis. No acute osseous abnormality. 2. Severe osteoarthritis at the right hip. Anemia hb improving9 from 8, Iron studies showed iron replete with decreased TIBC monitor # Deconditioning 04/17: ct pt/ot. eval for dc back to ARU. Medically stable. Discharge tomorrow to SNF, hopefully son will be comfortable with that Subjective Date/time seen: 04/25/23 16:55 Interval history: This is a 77-year-old female with history of DVT, hypertension, hyperlipidemia, paroxysmal atrial fibrillation, coronary artery disease status post coronary artery bypass grafting, hypertrophic cardiomyopathy, chronic kidney disease, and anemia presented to the emergency department via EMS from [place] for evaluation of an elevated heart rate. She is known to the hospitalist from fairly recent admissions. Initially hospitalized with a right radial fracture on 02/06/2023 and she was readmitted on 02/13/2023 for sepsis, MRSA bacteremia, left arm cellulitis, and atria
[2023-04-25] MEDS: ATORVASTATIN 40 MG TABLET 80 MG PO (20:59)
[2023-04-26] VITALS (9 sets, daily range): BP systolic 101–124; BP diastolic 46–68; PULSE 48–67; RESP 14–16; TEMP 36.7–37.2; O2SAT 98–99
[2023-04-26 06:05] LABS: Basophils Absolute Auto 0.1 K/mm3 (0.0-0.1); Basophils Percent Auto 1.4 % (0.2-1.2); Eosinophils Absolute Auto 0.3 K/mm3 (0-0.3); Eosinophils Percent Auto 7.5 % (0-4.4); Hematocrit 26.6 % (37.0-47.0); Hemoglobin 8.1 g/dL (12.0-15.0); Lymphocytes Absolute Auto 1.15 K/mm3 (0.9-3.2); Mean Corpuscular HGB Conc 30.5 g/dl (32-36); Mean Corpuscular Hemoglobin 29.7 pg (26-34); Mean Corpuscular Volume 97.4 fl (80-100); Mean Platelet Volume 11.1 fl (7.4-10.4); Monocytes Absolute Auto 0.4 K/mm3 (0.1-0.6); Monocytes Percent Auto 11.2 % (2.6-8.5); Neutrophils Absolute Auto 1.6 K/mm3 (1.3-6.7); Neutrophils Percent Auto 46.9 % (45.5-73.1); Platelet Count Result 223 k/mm3 (150-375); Red Blood Count 2.73 M/mm3 (4.2-5.4); Red Cell Distribution Width 18.8 % (11.5-14.5); White Blood Count 3.5 K/mm3 (4.5-10.0)
[2023-04-26 06:16] LABS: Alanine Aminotransferase 25 U/L (6-35); Albumin Level 2.8 g/dL (3.5-5.1); Alkaline Phosphatase 93 U/L (38-126); Anion Gap 5 mmol/L (8-16); Aspartate Amino Transferase 28 U/L (14-36); Bilirubin,Total 0.5 mg/dL (0.2-1.3); Blood Urea Nitrogen 7 mg/dL (7-17); Calcium 9.2 mg/dL (8.4-10.2); Carbon Dioxide 25 mmol/L (22-30); Chloride 107 mmol/L (98-107); Estimated CRCL calculation 42 ml/min; Estimated Glomerular Filt Rate 54; Glucose 82 mg/dL (65-110); Potassium 4.3 mmol/L (3.4-5.0); Sodium 137 mmol/L (137-145)
[2023-04-26] MEDS: MIDODRINE HCL 2.5 MG TABLET 5 MG PO ×2 (09:05→13:40)
[2023-04-26] MEDS: AMIODARONE HCL 200 MG TABLET 400 MG PO (09:06)
[2023-04-26] MEDS: CYANOCOBALAMIN 1,000 MCG TABLET 2000 MCG PO (09:06)
[2023-04-26] MEDS: SERTRALINE HCL 50 MG TABLET PO (09:06)
[2023-04-26] MEDS: GABAPENTIN 100 MG CAPSULE 200 MG PO ×2 (09:06→13:40)
[2023-04-26] MEDS: METOPROLOL SUCCINATE EXT REL 25 MG TABCR PO (09:06)
[2023-04-26] MEDS: APIXABAN 5 MG TABLET PO (09:06)
[2023-04-26] MEDS: ACETAMINOPHEN 325 MG TABLET 650 MG PO (09:07)
[2023-04-26] MEDS: CHOLECALCIFEROL 1,000 UNITS TABLET 1000 UNITS PO (09:07)
[2023-04-26] MEDS: PANTOPRAZOLE 40 MG TABLET PO (09:07)
[2023-04-26] MEDS: DICLOFENAC SODIUM 1% 100 GM GEL (*BKC) 1 APPLIC TOPICAL (09:07)
[2023-04-26] MEDS: EZETIMIBE 10 MG TABLET PO (09:07)
--- NOTE | 2023-04-26 12:33 | PM.DS ---
DS: Admitting Diagnosis Discharge Date 04/26/2023 Admitting Diagnosis Dizziness DS: Discharge Diagnosis Discharge Diagnosis (1) Symptomatic bradycardia: Code(s): R00.1 - Bradycardia, unspecified Status: Acute (2) Coronary artery disease: Code(s): I25.10 - Atherosclerotic heart disease of mak[place] coronary artery without angina pectoris Status: Acute (3) Chronic anemia: Code(s): D64.9 - Anemia, unspecified Status: Acute (4) Chronic kidney disease: Code(s): N18.9 - Chronic kidney disease, unspecified Status: Acute (5) Atrial fibrillation with RVR: Code(s): I48.91 - Unspecified atrial fibrillation Status: Acute (6) Left arm cellulitis: Code(s): L03.114 - Cellulitis of left upper limb Status: Acute (7) Fall: Code(s): W19.XXXA - Unspecified fall, initial encounter Status: Acute (8) Age-related osteoporosis without current pathological fracture: Onset Date: ~11/2017 Code(s): M81.0 - Age-related osteoporosis without current pathological fracture Status: Acute DS: Summary Hospital Course Hospital Course: # Afib rvr Cardiology consulted. Initially placed on amiodarone drip and now switched to oral amiodarone. Also on metoprolol for rate control. Back to sinus rhythm. Eliquis for stroke prophylaxis # apical variant hypertrophic cardiomyopathy: On beta-demetrius # HF with preserved EF: Cardiac MRI 07/2022 from [facility] RV nl size/systolic function. LVEF 54%, No LVOT, LV apex 1.7 cm suggest of apical HCM, increased T1 signal in apex indicative of fibrosis, ctm blood pressure, ideally normotensive to keep out of diastolic chf Was on Lasix daily however stop due to orthostatic hypotension. Bp controlled with metoprolol. Orthostatic hypotension which is chronic issue. Started on midodrine # CAD with ND in August 2012, hx of cabg 2 vessel again htn monitoring, now on eliquis # CLAUDIA on CKD Stage 1 Baseline 1.2 in early 2022 to 1.7 01/09/23 Worsened to 1.8 with dehydration which resolved and back to normal # Hx of mild normocytic anemia related to anemia of CKD, chronic disease, or possible myelodyslastic syndrome not worked up monitor Status post EGD colonoscopy 04/21/2023 EGD with hiatal hernia Colonoscopy with diverticulosis and internal hemorrhoids. # Hx of vertigo from possible orthostatic hypotension and/are other etiologies On midodrine for orthostatic hypertension # L hip hematoma 04/17: XR neg for fracture. Started norco for hip pain. pt has a hx of reactions to various pain medications, not able to describe individually each reaction. IMPRESSION: 1. Mild left hip osteoarthritis. No acute osseous abnormality. 2. Severe osteoarthritis at the right hip. # Deconditioning Back to nursing facility for rehabilitation # anemia H&H remained stable between 8-9 Time Spent with Patient Time attestation: Total time spent providing and/or coordinating discharge services: 40 minutes Exam Narrative: General:?Nontoxic appearing elderly female, in no acute distress. HEENT:?Wearing corrective lenses. PERRL, EOMI. Sclera anicteric. Tacky mucous membranes. Neck:??Supple. No JVD. Respiratory:?Lungs are clear to auscultation bilaterally. Cardiovascular:?regular rate and rhythm Gastrointestinal:??Abdomen is soft, nontender, and nondistended with positive bowel sounds. Skin:??Warm and dry.? No rash or lesions on limited exam. Extremities:??No cyanosis, clubbing, or significant edema. Radial and pedal pulses intact. Neurological:??Alert.? Cranial nerves 2-12 are grossly intact. No gross focal deficits to casual conversation. Psychiatric:??Pleasant and cooperative with normal mood and affect.? Judgment and insight intact. DS: Data Data Completed and Pending Labs on day of discharge: Labs from last 24 hours 04/26/23 04/25/23 04/25/23 05:53 12:04 12:02 WBC 3.5 L 4.1 L RBC 2.73 L 3.08 L Hgb 8.1 L 9.0
[2023-04-26 14:34] LABS: SARS-CoV-2 RNA PCR Negative (Negative)
== END 2023-04-26 17:15 | DRG 309 ==
LOC: ANHED 09:16 → ANHIMU 12:58 → ANH3MEDSUR 04-18 21:28
PROVIDERS: Internal Medicine; Internal Medicine Gastroenterology; Physician Assistant; Admitting Provider Internal Medicine; Emergency Provider Emergency Medicine; PCP Family Medicine Adolescent Medicine; Visit Provider Internal Medicine
PROC: 0DJ08ZZ Inspection of Upper Intestinal Tract, Via Natural or Artificial Opening Endoscopic (ICD-10-PCS; CPT 43235; principal; 2023-04-21 11:00)
DX: I48.91 Unspecified atrial fibrillation (principal); E44.1 Mild protein-calorie malnutrition; I13.0 Hypertensive heart and chronic kidney disease with heart failure and stage 1 through stage 4 chronic kidney disease, or unspecified chronic kidney disease; I50.32 Chronic diastolic (congestive) heart failure; N17.9 Acute kidney failure, unspecified; R00.1 Bradycardia, unspecified; D63.1 Anemia in chronic kidney disease; E78.5 Hyperlipidemia, unspecified; G89.29 Other chronic pain; I42.2 Other hypertrophic cardiomyopathy; I25.10 Atherosclerotic heart disease of native coronary artery without angina pectoris; I65.23 Occlusion and stenosis of bilateral carotid arteries; K21.9 Gastro-esophageal reflux disease without esophagitis; I95.1 Orthostatic hypotension; I48.0 Paroxysmal atrial fibrillation; I25.2 Old myocardial infarction; K59.04 Chronic idiopathic constipation; K44.9 Diaphragmatic hernia without obstruction or gangrene; K64.8 Other hemorrhoids; K57.30 Diverticulosis of large intestine without perforation or abscess without bleeding; M48.061 Spinal stenosis, lumbar region without neurogenic claudication; M81.0 Age-related osteoporosis without current pathological fracture; M16.0 Bilateral primary osteoarthritis of hip; M54.9 Dorsalgia, unspecified; N18.1 Chronic kidney disease, stage 1; R19.5 Other fecal abnormalities; S70.02XA Contusion of left hip, initial encounter; W19.XXXA Unspecified fall, initial encounter; Z68.28 Body mass index [BMI] 28.0-28.9, adult; Z11.52 Encounter for screening for COVID-19; Z90.49 Acquired absence of other specified parts of digestive tract; Z86.718 Personal history of other venous thrombosis and embolism; Z96.651 Presence of right artificial knee joint; Z95.1 Presence of aortocoronary bypass graft; Z98.41 Cataract extraction status, right eye; Z98.42 Cataract extraction status, left eye; Z96.1 Presence of intraocular lens
CPT/HCPCS: 36415; 71045; 73502; 80048; 80053; 82728; 83540; 83550; 83690; 83735; 84443; 84484; 85025; 85027; 85055; 85610; 85730; 87635; 93005; 96365; 96366; 96372; 97110; 97161; 97166; 97530; 97535; 99285; A9270; G0378; J0282; J1650; J2405; J2704; J3475; J7030; J7040; J7120

== ENCOUNTER 2023-11-15 20:35 | Emergency (ER) | payer OTHER, SELFPAY ==
--- NOTE | ~2023-11-15 | XR_ITS ---
EXAMINATION: XR tibia fibula RT 2V DATE: 11/15/2023 21:14 INDICATION: Right lower leg injury and would infection. TECHNIQUE: 2 views of right tibia and fibula on 3 radiographs were obtained. COMPARISON: Right knee radiographs 02/01/2023 FINDINGS: There is a total right knee arthroplasty with patellar resurfacing in near-anatomic alignme nt. No fracture. No periprosthetic lucency to suggest loosening or infection. The ankle joint space i s normal. No radiopaque foreign body. IMPRESSION: 1. Total right knee arthroplasty in near-anatomic alignment. Reviewed, dictated and finalized at location E.
[2023-11-15 20:44] VITALS: BP 176/57; PULSE 62; RESP 18; TEMP 36.4; O2SAT 100
--- NOTE | 2023-11-15 20:56 | ED.LOWEXIN ---
HPI - Extremity Injury (Lower) General Chief Complaint: Extremity Injury, Lower Stated Complaint: fell on friday, right calf Time Seen by Provider: 11/15/23 20:43 Source: patient Mode of arrival: ambulatory Limitations: no limitations History of Present Illness HPI Narrative: Tiera is a 78-year-old female patient presenting to the emergency room with complaints of right lateral leg pain and swelling from a fall/wound. She reports she does have a wound to the area. States she fell last Friday. Had a call out to her doctor and received a prescription for some antibiotics but does not recall what she is taking. States she just started taking those antibiotics yesterday and the wound is getting worse. She reporting increased redness and swelling. No x-rays have been taken of the leg. Related Data Home Medications Medication Instructions Recorded Confirmed acetaminophen 500 mg tablet 1,000 mg PO Q6H PRN Pain (Scale 04/02/22 04/15/23 (Tylenol Extra Strength) Score 1-3) ondansetron HCl 4 mg tablet 4 mg PO Q8H PRN Nausea And Vomiting 02/02/23 04/15/23 amiodarone 200 mg tablet 400 mg PO DAILY 04/15/23 04/15/23 atorvastatin 80 mg tablet 80 mg PO HS 04/15/23 04/15/23 bisacodyl 10 mg rectal suppository 10 mg RECTAL DAILY PRN Constipation 04/15/23 04/15/23 (Dulcolax (bisacodyl)) calcium carbonate 500 mg-vitamin 1 tablet PO DAILY 04/15/23 04/15/23 D3 5 mcg (200 unit) tablet (Oyster Shell Calcium-Vitamin D3) cholecalciferol (vitamin D3) 25 25 mcg PO DAILY 04/15/23 04/15/23 mcg (1,000 unit) tablet cyanocobalamin (vitamin B-12) 2,000 mcg PO DAILY 04/15/23 04/15/23 1,000 mcg tablet gabapentin 100 mg capsule 200 mg PO TID 04/15/23 04/15/23 metoprolol succinate 25 mg 25 mg PO DAILY 04/15/23 04/15/23 tablet,extended release 24 hr pantoprazole 40 mg tablet,delayed 40 mg PO QAM 04/15/23 04/15/23 release sertraline 50 mg tablet 50 mg PO DAILY 04/15/23 04/15/23 Allergies Allergy/AdvReac Type Severity Reaction Status Date / Time codeine Allergy Unknown Anaphylaxis Verified 04/21/23 12:42 Latex, Natural Rubber Allergy Unknown SKIN Verified 04/21/23 12:42 IRRITATION nitroglycerin AdvReac Severe Hypotension Verified 04/21/23 12:42 tramadol AdvReac Mild Nausea and Verified 04/21/23 12:42 Vomiting, HEADACHE, DIZZINESS Review of Systems Review of Systems: Pertinent positives per HPI. Patient denies any fever, chills, rash, headache, visual changes, dizziness, cough, runny nose, sore throat, shortness of breath, chest pain, palpitations, nausea, vomiting, diarrhea, constipation, abdominal pain, or any urinary issues. [facility] Past Medical History Medical History (Updated 11/15/23 @ 23:01 by Leighton Lagunas APRN) Acute on chronic anemia Benign positional vertigo Cardiorenal syndrome with renal failure Chronic anemia Chronic idiopathic constipation Chronic kidney disease Chronic lower back pain Compression fracture of thoracic spine, non-traumatic (2017) T11 Coronary artery disease Deep venous thrombosis 1960s Diverticulitis With history of perforation Gastro-esophageal reflux disease without esophagitis Hyperlipidemia Hypertrophic cardiomyopathy Apical variant noted on cardiac MRI 08/22/2022 Intra-articular fracture of distal end of right radius with volar angulation Close reduction January 2023 Lumbar spinal stenosis Occlusion and stenosis of bilateral carotid arteries Osteoporosis Pancreatic cyst Paroxysmal atrial fibrillation History of cardioversion in January 2023 Surgical History Surgical History History of bowel resection (1992) Due to prior bowel perforation History of cataract extraction with lens replacement History of cholecystectomy History of coronary artery bypass graft x 2 (2012) LAWSON to LAD and saphenous vein graft to obtuse marginal History of lumbar surgery (1998) Lumbar diskectomy History of total righ
[2023-11-15 21:33] LABS: Basophils Percent Auto 0.7 % (0.2-1.2); Eosinophils Absolute Auto 0.1 K/mm3 (0-0.3); Eosinophils Percent Auto 1.6 % (0-4.4); Hematocrit 25.7 % (37.0-47.0); Lymphocytes Percent Auto 20.6 % (18.3-44.2); Mean Corpuscular HGB Conc 31.1 g/dl (32-36); Mean Corpuscular Hemoglobin 28.5 pg (26-34); Mean Corpuscular Volume 91.5 fl (80-100); Mean Platelet Volume 12.8 fl (7.4-10.4); Monocytes Absolute Auto 0.8 K/mm3 (0.1-0.6); Monocytes Percent Auto 17.2 % (2.6-8.5); Neutrophils Absolute Auto 2.6 K/mm3 (1.3-6.7); Neutrophils Percent Auto 59.9 % (45.5-73.1); Platelet Count Result 161 k/mm3 (150-375); Red Blood Count 2.81 M/mm3 (4.2-5.4); Red Cell Distribution Width 19.9 % (11.5-14.5); White Blood Count 4.4 K/mm3 (4.5-10.0)
[2023-11-15 21:42] LABS: Lactic Acid Reflex 0.8 mmol/L (0.7-2.0)
[2023-11-15 21:43] LABS: Alanine Aminotransferase 379 U/L (6-35); Alkaline Phosphatase 95 U/L (38-126); Anion Gap 5 mmol/L (4-12); Aspartate Amino Transferase 393 U/L (14-36); Blood Urea Nitrogen 17 mg/dL (7-17); Calcium 9.9 mg/dL (8.4-10.2); Carbon Dioxide 25 mmol/L (22-30); Chloride 105 mmol/L (98-107); Estimated CRCL calculation 28 ml/min; Estimated Glomerular Filt Rate 34; Glucose 100 mg/dL (65-110); Potassium 4.5 mmol/L (3.4-5.0); Sodium 135 mmol/L (137-145)
[2023-11-15 23:10] VITALS: BP 131/76; PULSE 65; RESP 14; TEMP 36.9; O2SAT 100
== END 2023-11-15 23:11 | disposition home or self-care (01) ==
PROVIDERS: Emergency Provider Nurse Practitioner Family; PCP Family Medicine Adolescent Medicine
DX: L03.116 Cellulitis of left lower limb (principal); R94.5 Abnormal results of liver function studies; D64.9 Anemia, unspecified; N18.9 Chronic kidney disease, unspecified; I25.10 Atherosclerotic heart disease of native coronary artery without angina pectoris; K21.9 Gastro-esophageal reflux disease without esophagitis
CPT/HCPCS: 36415; 73590; 80053; 83605; 85025; 87070; 87205; 99283

== ENCOUNTER 2023-11-20 08:12 | Emergency (ER) | payer OTHER, SELFPAY ==
[2023-11-20] VITALS (8 sets, daily range): BP systolic 127–128; BP diastolic 49–51; PULSE 55–65; RESP 11–21; TEMP 36.3; O2SAT 84–100
--- NOTE | 2023-11-20 08:23 | ECG_ITS ---
[facility] [address] Test Date: 2023-11-20 Pat Name: Tiera Lobato Department: Room: Gender: F Kosher Inspector: CARO : 1945 Requested By: Rabia Velasquez Order Number: [id number] Josseline MD: Yaneli Perry M.D. Measurements Intervals [place]de Rate: 58 P: 11 PA: 201 QRS: -15 QRSD: 121 T: 138 QT: 470 QTc: 464 Interpretive Statements SINUS BRADYCARDIA LEFT VENTRICULAR HYPERTROPHY AND ST-T CHANGE [VOLTAGE CRITERIA PLUS ST/T ABNORMALITY] No previous ECG available for comparison Electronically Signed On 11-20-2023 13:45:01 CDT by Yaneli Perry M.D.
--- NOTE | 2023-11-20 08:32 | ED.NAVMDI ---
HPI - Nausea/Vomiting/Diarrhea General Chief complaint: Nausea/Vomiting/Diarrhea Stated complaint: nausea Time Seen by Provider: 11/20/23 08:30 History of Present Illness HPI Narrative: Pt presents this morning after having numerous episodes of emesis and now just dry heaves. Pt had some abdominal discomfort with vomiting but now resolved after nausea controlled with zofran in route by EMS. Pt denies diarrhea or fever. Related Data Home Medications Medication Instructions Recorded Confirmed acetaminophen 500 mg tablet 1,000 mg PO Q6H PRN Pain (Scale 04/02/22 04/15/23 (Tylenol Extra Strength) Score 1-3) ondansetron HCl 4 mg tablet 4 mg PO Q8H PRN Nausea And Vomiting 02/02/23 04/15/23 amiodarone 200 mg tablet 400 mg PO DAILY 04/15/23 04/15/23 atorvastatin 80 mg tablet 80 mg PO HS 04/15/23 04/15/23 bisacodyl 10 mg rectal suppository 10 mg RECTAL DAILY PRN Constipation 04/15/23 04/15/23 (Dulcolax (bisacodyl)) calcium carbonate 500 mg-vitamin 1 tablet PO DAILY 04/15/23 04/15/23 D3 5 mcg (200 unit) tablet (Oyster Shell Calcium-Vitamin D3) cholecalciferol (vitamin D3) 25 25 mcg PO DAILY 04/15/23 04/15/23 mcg (1,000 unit) tablet cyanocobalamin (vitamin B-12) 2,000 mcg PO DAILY 04/15/23 04/15/23 1,000 mcg tablet gabapentin 100 mg capsule 200 mg PO TID 04/15/23 04/15/23 metoprolol succinate 25 mg 25 mg PO DAILY 04/15/23 04/15/23 tablet,extended release 24 hr pantoprazole 40 mg tablet,delayed 40 mg PO QAM 04/15/23 04/15/23 release sertraline 50 mg tablet 50 mg PO DAILY 04/15/23 04/15/23 Allergies Allergy/AdvReac Type Severity Reaction Status Date / Time codeine Allergy Unknown Anaphylaxis Verified 11/20/23 08:20 Latex, Natural Rubber Allergy Unknown SKIN Verified 11/20/23 08:20 IRRITATION nitroglycerin AdvReac Severe Hypotension Verified 11/20/23 08:20 tramadol AdvReac Mild Nausea and Verified 11/20/23 08:20 Vomiting, HEADACHE, DIZZINESS Review of Systems Review of Systems: All systems reviewed & are unremarkable except as noted in HPI and below PMFSH Past Medical History Medical History (Updated 11/20/23 @ 10:07 by Rabia Zavaleta III, DO) Acute kidney injury superimposed on chronic kidney disease Acute non-ST elevation myocardial infarction (NSTEMI) Acute on chronic anemia Benign positional vertigo Cardiorenal syndrome with renal failure Chronic anemia Chronic idiopathic constipation Chronic lower back pain Compression fracture of thoracic spine, non-traumatic (2018) T11 Deep venous thrombosis 1960s Diverticulitis With history of perforation Gastro-esophageal reflux disease without esophagitis Hyperlipidemia Hypertrophic cardiomyopathy Apical variant noted on cardiac MRI 08/22/2022 Intra-articular fracture of distal end of right radius with volar angulation Close reduction January 2023 Lumbar spinal stenosis Occlusion and stenosis of bilateral carotid arteries Osteoporosis Pancreatic cyst Paroxysmal atrial fibrillation History of cardioversion in January 2023 Surgical History Surgical History History of bowel resection (1992) Due to prior bowel perforation History of cataract extraction with lens replacement History of cholecystectomy History of coronary artery bypass graft x 2 (2012) LAWSON to LAD and saphenous vein graft to obtuse marginal History of lumbar surgery (1998) Lumbar diskectomy History of total right knee replacement (2017) Family History Family History Father Malignant neoplasm of prostate Mother Alzheimer's dementia Sibling Alzheimer's dementia Social History Social History Social History: Surrogate medical decision maker: Storm Lobato, son. Code status: Full code. Smoking status: Never smoker Second hand tobacco smoke exposure: Yes Alcohol intake: never
[2023-11-20 08:37] LABS: Basophils Percent Auto 0.3 % (0.2-1.2); Eosinophils Absolute Auto 0.2 K/mm3 (0-0.3); Eosinophils Percent Auto 6.7 % (0-4.4); Hematocrit 25.7 % (37.0-47.0); Hemoglobin 7.9 g/dL (12.0-15.0); Immature Granulocyte Absolute 0.02 K/mm3 (0.00-0.031); Immature Granulocyte Percent A 0.6 % (0-0.5); Lymphocytes Absolute Auto 0.31 K/mm3 (0.9-3.2); Lymphocytes Percent Auto 8.7 % (18.3-44.2); Mean Corpuscular HGB Conc 30.7 g/dl (32-36); Mean Corpuscular Volume 91.1 fl (80-100); Mean Platelet Volume 11.2 fl (7.4-10.4); Monocytes Absolute Auto 0.6 K/mm3 (0.1-0.6); Monocytes Percent Auto 17.1 % (2.6-8.5); Neutrophils Absolute Auto 2.4 K/mm3 (1.3-6.7); Neutrophils Percent Auto 66.6 % (45.5-73.1); Platelet Count Result 172 k/mm3 (150-375); Red Blood Count 2.82 M/mm3 (4.2-5.4); White Blood Count 3.6 K/mm3 (4.5-10.0)
[2023-11-20 09:42] LABS: Albumin Level 3.8 g/dL (3.5-5.1); Alkaline Phosphatase 136 U/L (38-126); Anion Gap 8 mmol/L (4-12); Bilirubin,Total 1.5 mg/dL (0.2-1.3); Blood Urea Nitrogen 20 mg/dL (7-17); Calcium 9.2 mg/dL (8.4-10.2); Carbon Dioxide 23 mmol/L (22-30); Chloride 102 mmol/L (98-107); Estimated CRCL calculation 26 ml/min; Estimated Glomerular Filt Rate 31; Glucose 96 mg/dL (65-110); Lipase 109 U/L (23-300); Potassium 4.2 mmol/L (3.4-5.0); Sodium 133 mmol/L (137-145)
[2023-11-20 10:11] LABS: Appearance Urine Clear (Clear); Bacteria Urine None Seen /hpf; Bilirubin Urine Negative (Negative); Blood Urine Negative (Negative); Color Urine Dark Yellow (Yellow); Glucose Urine UA Negative (Negative); Ketones Urine Trace mg/dL (Negative); Leukocyte Esterase Ur 1+ LEU/UL (Negative); Mucus Urine Present /lpf; Nitrate Urine Negative (Negative); Protein Urine 1+ mg/dL (Negative); RBC Urine 0-2 /hpf (0-2); Specific Grav Ur 1.022 (1.001-1.035); Squamous Epithelial Cell Urine Few /hpf (Few); WBC Urine 0-5 /hpf (0-3)
[2023-11-20 10:20] LABS: Add Urine Microscopic? YES
[2023-11-20 14:31] LABS: Alanine Aminotransferase 1375 U/L (6-35); Aspartate Amino Transferase 1501 U/L (14-36)
== END 2023-11-20 10:42 ==
PROVIDERS: Emergency Provider Emergency Medicine; PCP Family Medicine Adolescent Medicine
DX: K29.70 Gastritis, unspecified, without bleeding (principal); I48.0 Paroxysmal atrial fibrillation; I25.2 Old myocardial infarction; I42.2 Other hypertrophic cardiomyopathy; I65.23 Occlusion and stenosis of bilateral carotid arteries; N18.9 Chronic kidney disease, unspecified; I13.10 Hypertensive heart and chronic kidney disease without heart failure, with stage 1 through stage 4 chronic kidney disease, or unspecified chronic kidney disease; E78.5 Hyperlipidemia, unspecified; D64.9 Anemia, unspecified; K59.04 Chronic idiopathic constipation; K21.9 Gastro-esophageal reflux disease without esophagitis; M81.0 Age-related osteoporosis without current pathological fracture; Z96.1 Presence of intraocular lens; Z98.49 Cataract extraction status, unspecified eye; Z95.1 Presence of aortocoronary bypass graft; Z96.651 Presence of right artificial knee joint; Z86.718 Personal history of other venous thrombosis and embolism; Z90.49 Acquired absence of other specified parts of digestive tract; Z79.899 Other long term (current) drug therapy; Z77.22 Contact with and (suspected) exposure to environmental tobacco smoke (acute) (chronic); Z79.01 Long term (current) use of anticoagulants; R00.1 Bradycardia, unspecified; I51.7 Cardiomegaly
CPT/HCPCS: 36415; 80053; 81001; 83690; 85025; 93005; 99283

== ENCOUNTER 2024-06-04 19:18 | Observation (INO) | payer OTHER, MEDICAID, SELFPAY ==
--- NOTE | ~2024-06-04 | CT_ITS ---
EXAMINATION: CT chest abdomen pelvis w con DATE: 06/04/2024 23:06 INDICATION: Left rib pain. Left flank pain. Low back pain. TECHNIQUE: Computed tomography (CT) of the chest, abdomen, and pelvis was performed with 100 mL Omnip aque 350 intravenous contrast. Automated exposure control and iterative reconstruction technique were employed. The dose-length product was 310.83 mGy-cm. COMPARISON: CT 02/15/2023 FINDINGS: CHEST CT: The lungs demonstrate mild atelectasis. No pleural effusion. Cardiomegaly is noted. There are coronar y artery calcifications. There are changes of coronary artery bypass grafting. No pericardial effusio n. There are is a chronic compression fracture of T8. There is a burst fracture of T9 with 2/5 loss o f height. There are chronic burst fractures of T11 and T12. There is mild thoracic spondylosis. There are old healed bilateral rib fractures. ABDOMEN/PELVIS CT: The liver demonstrates pneumobilia, likely secondary to sphincterotomy. There are changes of cholecys tectomy. The spleen, pancreas, and right adrenal gland are normal. There is a 3.4 cm mass in left adr enal gland containing fat, consistent with a myelolipoma. There is cortical thinning of the kidneys. There are cysts in the kidneys measuring up to 4.6 cm on the left. There is diverticulosis of the col on without evidence of diverticulitis. There are no dilated loops of bowel. The appendix is normal. T here are no pathologically enlarged lymph nodes. There is no free intraperitoneal fluid. There is a h ealing fracture of right inferior pubic ramus. There is severe right hip osteoarthritis. There is mod erate lumbar spondylosis. IMPRESSION: 1. T9 burst fracture, likely acute or subacute. Reviewed, dictated and finalized at location A. HIP LEADER
--- NOTE | ~2024-06-04 | XR_ITS ---
EXAMINATION: XR abdomen/kub 1V DATE: 06/08/2024 10:08 INDICATION: Abdominal pain and constipation. TECHNIQUE: A supine view of the abdomen was obtained. COMPARISON: Abdomen radiographs 10/16/2012, CT abdomen and pelvis 06/04/2024 FINDINGS: The colon is mildly distended. There is a small volume of stool in the colon. There are lexis gical clips the abdomen. Median sternotomy wires are noted. IMPRESSION: 1. Mildly distended colon, likely adynamic ileus. Reviewed, dictated and finalized at location A. ING SANDER OPERATOR
--- NOTE | ~2024-06-04 | XR_ITS ---
Exam: Abdomen 1V HISTORY: reeval ileus COMPARISON: 06/08/2024. Reference is also made to a CT examination of the chest abdomen and pelvis da christel 06/04/2024 and dating back to 02/15/2023 TECHNIQUE: Supine images of the abdomen and pelvis. FINDINGS: Aerated stool within the colon. Air opacified small bowel projecting over the lower lumbar spine and within the pelvis (poorly evalua christel on the current examination). Multiple surgical clips within the right upper quadrant consistent with prior cholecystectomy. Additional surgical clips projecting to the left of midline. Densely calcified splenic artery. Air is suspected within the rectum, extending to the right of midline. Near complete obliteration of the right femoral acetabular joint space suggesting prior avascular nec rosis. IMPRESSION: Nonspecific, nonobstructive bowel gas pattern. If clinical suspicion persists, cross-sectional imaging (contrast-enhanced CT examination of the abdo men and pelvis) is suggested for further evaluation. Reviewed, dictated and finalized at location A. L SPRAY OPERATOR IMPRESSION: Nonspecific, nonobstructive bowel gas pattern. If clinical suspicion persists, cross-sectional imaging (contrast-enhanced CT e xamination of the abdomen and pelvis) is suggested for further evaluation.
[2024-06-04 19:19] VITALS: BP 192/72; PULSE 71; RESP 16; TEMP 36.6; O2SAT 100
[2024-06-04] MEDS: ACETAMINOPHEN 500 MG TABLET 1000 MG PO (20:21)
[2024-06-04] MEDS: methocarbamoL 750 MG TABLET PO (20:21)
[2024-06-04] MEDS: LIDOCAINE 5% PATCH 1 PATCH TRANSDERM (20:24)
--- NOTE | 2024-06-04 20:55 | ED.GENADULT ---
HPI - General Adult General Chief complaint: Back Pain/Injury Stated complaint: Back pain Time Seen by Provider: 06/04/24 19:53 History of Present Illness HPI narrative: This is a 79 year-old female w/ osteoporisis presenting ED with chief complaint of Back pain and left-sided pain. Patient says she has been having pain since friday. Pain is across her mid back, worse on her left side, and radiates down the back of her left leg to the knee. No trauma. No urinary retention, bowel incontinence, weakness, saddle anesthesia. Denies Chest pain difficulty breathing abdominal pain fevers chills nausea vomiting diarrhea or urinary sxs. Related Data Home Medications ?Medication ?Instructions ?Recorded ?Confirmed ?Last Taken ?Type acetaminophen 500 mg tablet 1,000 mg PO Q6H PRN Pain (Scale 04/02/22 04/15/23 Unknown History (Tylenol Extra Strength) Score 1-3) amiodarone 200 mg tablet 400 mg PO DAILY 04/15/23 04/15/23 Unknown History atorvastatin 80 mg tablet 80 mg PO HS 04/15/23 04/15/23 Unknown History bisacodyl 10 mg rectal suppository 10 mg RECTAL DAILY PRN Constipation 04/15/23 04/15/23 Unknown History (Dulcolax (bisacodyl)) calcium 500 mg (as 1 tablet PO DAILY 04/15/23 04/15/23 Unknown History carbonate)-vitamin D3 5 mcg (200 unit) tablet (Oyster Shell Calcium-Vitamin D3) cholecalciferol (vitamin D3) 25 25 mcg PO DAILY 04/15/23 04/15/23 Unknown History mcg (1,000 unit) tablet cyanocobalamin (vitamin B-12) 2,000 mcg PO DAILY 04/15/23 04/15/23 Unknown History 1,000 mcg tablet gabapentin 100 mg capsule 200 mg PO TID 04/15/23 04/15/23 Unknown History metoprolol succinate 25 mg 25 mg PO DAILY 04/15/23 04/15/23 Unknown History tablet,extended release 24 hr pantoprazole 40 mg tablet,delayed 40 mg PO QAM 04/15/23 04/15/23 Unknown History release sertraline 50 mg tablet 50 mg PO DAILY 04/15/23 04/15/23 Unknown History Allergies Allergy/AdvReac Type Severity Reaction Status Date / Time codeine Allergy Unknown Anaphylaxis Verified 06/04/24 19:24 Latex, Natural Rubber Allergy Unknown SKIN Verified 06/04/24 19:24 IRRITATION nitroglycerin AdvReac Severe Hypotension Verified 06/04/24 19:24 tramadol AdvReac Mild Nausea and Verified 06/04/24 19:24 Vomiting, HEADACHE, DIZZINESS PMFSH Past Medical History Medical History Acute on chronic anemia Chronic anemia Paroxysmal atrial fibrillation History of cardioversion in January 2023 Deep venous thrombosis 1960s Intra-articular fracture of distal end of right radius with volar angulation Close reduction January 2023 Benign positional vertigo Diverticulitis With history of perforation Hypertrophic cardiomyopathy Apical variant noted on cardiac MRI 08/22/2022 Chronic lower back pain Osteoporosis Hyperlipidemia Acute kidney injury superimposed on chronic kidney disease Cardiorenal syndrome with renal failure Lumbar spinal stenosis Pancreatic cyst Acute non-ST elevation myocardial infarction (NSTEMI) Compression fracture of thoracic spine, non-traumatic (2017) T11 Gastro-esophageal reflux disease without esophagitis Occlusion and stenosis of bilateral carotid arteries Chronic idiopathic constipation Surgical History Surgical History History of cataract extraction with lens replacement History of coronary artery bypass graft x 2 (2012) LAWSON to LAD and saphenous vein graft to obtuse marginal History of bowel resection (1992) Due to prior bowel perforation History of cholecystectomy History of total right knee replacement (2017) History of lumbar surgery (1998) Lumbar diskectomy Family History Family History Father Malignant neoplasm of prostate Mother Alzheimer's dementia Sibling Alzheimer's dementia Social History Social History Social History: Surrogate medical decision maker: Storm Lobato, son. Code status: Full code. Smoking status: Never smoker Second hand tobacco smoke exposure: Yes Alcohol intake: never Substance use: never Substance use type: does not use Last use: 01/24/2023 Lack of Transportation: No Lack of Food: Never True Current Housing: I Have Housing Concerned About Future Housing: No Difficulty Paying Gas/Electric Bills: No Difficulty Paying for Meds: No Currently Unemployed: No Education: High School Diploma/GED Difficulty w/ Childcare or Family Care: No Living arrangements: assisted living Additional living arrangements comments: . She has 3 sons. Ambulates with a walker. Spiritual care concerns: No Agree to blood products: Yes Exam Narrative: APPEARANCE: No apparent distress. Head: atraumatic. EYES: EOMI, NOSE: Atraumatic NECK /back: Midline thoracic tenderness at the lower thoracic area RESPIRATORY: No increased rate of breathing, CTAB CARDIOVASCULAR: RRR, No peripheral edmea. ABDOMINAL: tenderness to palpation over the left flank and left upper quadrant MUSCULOSKELETAl: Tenderness to palpation over the left lateral ribs, no overlying skin changes focal exam lower extremity revealed straight leg negative bilaterally, legs are neurovascularly intact NEURO: Alert. Moving 4/4 extremities SKIN:: Warm, dry. Normal color PSYCHIATRIC: Normal affect Course Vital Signs Vital signs: Vital Signs Temperature 97.8 F 06/04/24 19:19 Pulse Rate 71 06/04/24 19:19 Respiratory Rate 16 06/04/24 19:19 Blood Pressure 192/72 H 06/04/24 19:19 Pulse Oximetry 100 06/04/24 19:19 Oxygen Delivery Room Air 06/04/24 19:19 Temperature 97.8 F 06/04/24 19:19 Pulse Rate 82 06/05/24 00:48 Respiratory Rate 18 06/05/24 00:48 Blood Pressure 178/77 H 06/05/24 00:48 Pulse Oximetry 98 06/05/24 00:48 Oxygen Delivery Room Air 06/04/24 19:19 Medical Decision Making [facility] Narrative Medical decision making narrative: -Course: this is a 79-year-old female With osteoporosispresenting with back pain and left-sided radicular pain. imaging showed 18 9 acute versus subacute burst fracture with 2/5 loss of height. This corresponds with the pain wrapping around her left side. she is also having left-sided leg radicular pain. The patient has no motor deficits. the patient is is able to ambulate and use her leg however it causes her so much pain that she is not willing to stand up. Case was discussed with Dr. Krueger who believes as long as the pain is controlled/can ambulate she can be discharged to follow-up with primary care physician. Unfortunately patient's pain is severe and she will have to be admitted to hospital for pain control and PT/OT/placement. -DDX includes but is not limited to: Burst fracture, fracture of ribs, kidney stone, sciatica, colitis -Co-morbidities complicating care: osteoporosis -Independent interpretation of studies: labs and imaging reviewed -Discussion of Management/Consultants: Dr. Newsome, Dr. Krueger -Interventions: Tylenol 1000, lidocaine patch, morphine 4 mg, Robaxin 750 -Shared decision making / Disposition: admitted Vital Signs Vital Signs: Vital Signs Temperature 97.8 F 06/04/24 19:19 Pulse Rate 71 06/04/24 19:19 Respiratory Rate 16 06/04/24 19:19 Blood Pressure 192/72 H 06/04/24 19:19 Pulse Oximetry 100 06/04/24 19:19 Oxygen Delivery Room Air 06/04/24 19:19 Temperature 97.8 F 06/04/24 19:19 Pulse Rate 82 06/05/24 00:48 Respiratory Rate 18 06/05/24 00:48 Blood Pressure 178/77 H 06/05/24 00:48 Pulse Oximetry 98 06/05/24 00:48 Oxygen Delivery Room Air 06/04/24 19:19 Lab Data 06/04/24 21:08 06/04/24 21:08 Labs: Lab Results 06/04/24 Range/Units 21:08 WBC 4.9 (4.5-10.0) K/mm3 RBC 3.31 L (4.2-5.4) M/mm3 Hgb 11.0 L D (12.0-15.0) g/dL Hct 33.3 L (37.0-47.0) % MCV 100.6 H (80-100) fl MCH 33.2 (26-34) pg MCHC 33.0 (32-36) g/dl RDW 12.0 (11.5-14.5) % Plt Count 152 (150-375) k/mm3 MPV 10.9 H (7.4-10.4) fl Immature Gran % (Auto) 0.2 (0-0.5) % Neut % (Auto) 67.1 (45.5-73.1) % Lymph % (Auto) 19.2 (18.3-44.2) % Craven % (Auto) 12.3 H (2.6-8.5) % Eos % (Auto) 0.6 (0-4.4) % Baso % (Auto) 0.6 (0.2-1.2) % Lymph # (Auto) 0.95 (0.9-3.2) K/mm3 Craven # (Auto) 0.6 (0.1-0.6) K/mm3 Eos # (Auto) 0.0 (0-0.3) K/mm3 Baso # (Auto) 0.0 (0.0-0.1) K/mm3 Abs Immat Gran (auto) 0.01 (0.00-0.031) K/mm3 Absolute Neuts (auto) 3.3 (1.3-6.7) K/mm3 Absolute Nucleated RBC 0.000 (0.0-0.012) K/mm3 Nucleated RBC % 0.0 (0.0-0.2) % Sodium 136 L (137-145) mmol/L Potassium 4.2 (3.4-5.0) mmol/L Chloride 106 (98-107) mmol/L Carbon Dioxide 24 (22-30) mmol/L Anion Gap 6 (4-12) mmol/L BUN 20 H (7-17) mg/dL Creatinine 1.10 H (0.7-1.0) mg/dL Estim Creat Clear Calc 32 ml/min Estimated GFR 48 L (59 - ) Glucose 108 (65-110) mg/dL Calcium 10.0 (8.4-10.2) mg/dL Total Bilirubin 1.2 (0.2-1.3) mg/dL AST 24 (14-36) U/L ALT 12 (6-35) U/L Alkaline Phosphatase 56 (38-126) U/L Total Protein 7.0 (6.3-8.2) g/dL Albumin 4.1 (3.5-5.1) g/dL Discharge Plan Discharge Clinical Impression: Burst fracture of T9 vertebra, Radicular leg pain Patient Disposition: Still a Patient Condition: Stable Patient Language: Kiswahili Prescriptions: No Action acetaminophen [Tylenol Extra Strength] 500 mg Tablet 1,000 mg PO Q6H PRN (Reason: Pain (Scale Score 1-3)) amiodarone 200 mg Tablet 400 mg PO DAILY cyanocobalamin (vitamin B-12) 1,000 mcg Tablet 2,000 mcg PO DAILY bisacodyl [Dulcolax (bisacodyl)] 10 mg Suppository 10 mg RECTAL DAILY PRN (Reason: Constipation) pantoprazole 40 mg Tablet,Delayed Release (Dr/Ec) 40 mg PO QAM gabapentin 100 mg Capsule 200 mg PO TID metoprolol succinate 25 mg Tablet Extended Release 24 Hr 25 mg PO DAILY sertraline 50 mg Tablet 50 mg PO DAILY calcium carbonate-vitamin D3 [Oyster Shell Calcium-Vit D3] 500 mg-5 mcg (200 unit) Tablet 1 tablet PO DAILY cholecalciferol (vitamin D3) 25 mcg (1,000 unit) Tablet 25 mcg PO DAILY atorvastatin 80 mg tablet 80 mg PO HS Eliquis 5 mg Tablet 5 mg PO Q12HR Qty: 60 0RF midodrine 2.5 mg Tablet 5 mg PO TID Qty: 90 0RF sulfamethoxazole-trimethoprim [Bactrim] 400-80 mg tablet 1 tablet PO BID 10 Days Qty: 20 0RF ondansetron 4 mg tablet,disintegrating 4 mg PO Q8H PRN (Reason: nausea and vomiting) Qty: 20 0RF alendronate 70 mg tablet 70 mg PO WEEKLY Qty: 13 2RF Rx Instructions: Every Friday ezetimibe 10 mg tablet 10 mg PO DAILY Qty: 30 5RF Linzess 145 mcg capsule 145 mcg PO DAILY PRN (Reason: Constipation) Qty: 90 0RF diclofenac sodium 1 % gel See Rx Instructions .ROUTE .COMPLEX Qty: 100 0RF Dose Instruction: APPLY 2 GRAMS TO AFFECTED AREA THREE TIMES DAILY Rx Instructions: APPLY 2 GRAMS TO AFFECTED AREA THREE TIMES DAILY Follow-up/Referrals: Cristian Ling MD [Primary Care Provider] -
[2024-06-04 21:14] LABS: Basophils Percent Auto 0.6 % (0.2-1.2); Eosinophils Percent Auto 0.6 % (0-4.4); Hematocrit 33.3 % (37.0-47.0); Immature Granulocyte Absolute 0.01 K/mm3 (0.00-0.031); Immature Granulocyte Percent A 0.2 % (0-0.5); Lymphocytes Absolute Auto 0.95 K/mm3 (0.9-3.2); Lymphocytes Percent Auto 19.2 % (18.3-44.2); Mean Corpuscular Hemoglobin 33.2 pg (26-34); Mean Corpuscular Volume 100.6 fl (80-100); Mean Platelet Volume 10.9 fl (7.4-10.4); Monocytes Absolute Auto 0.6 K/mm3 (0.1-0.6); Monocytes Percent Auto 12.3 % (2.6-8.5); Neutrophils Absolute Auto 3.3 K/mm3 (1.3-6.7); Neutrophils Percent Auto 67.1 % (45.5-73.1); Platelet Count Result 152 k/mm3 (150-375); Red Blood Count 3.31 M/mm3 (4.2-5.4); White Blood Count 4.9 K/mm3 (4.5-10.0)
[2024-06-04 21:25] LABS: Alanine Aminotransferase 12 U/L (6-35); Albumin Level 4.1 g/dL (3.5-5.1); Alkaline Phosphatase 56 U/L (38-126); Anion Gap 6 mmol/L (4-12); Aspartate Amino Transferase 24 U/L (14-36); Bilirubin,Total 1.2 mg/dL (0.2-1.3); Blood Urea Nitrogen 20 mg/dL (7-17); Carbon Dioxide 24 mmol/L (22-30); Chloride 106 mmol/L (98-107); Estimated CRCL calculation 32 ml/min; Estimated Glomerular Filt Rate 48; Glucose 108 mg/dL (65-110); Potassium 4.2 mmol/L (3.4-5.0); Sodium 136 mmol/L (137-145)
[2024-06-04 23:43] VITALS: BP 172/94; PULSE 70; RESP 18; O2SAT 100
[2024-06-05] VITALS (9 sets, daily range): BP systolic 124–178; BP diastolic 53–77; PULSE 58–90; RESP 16–18; TEMP 36.1–37.3; O2SAT 95–100; BMI 22.4
[2024-06-05] MEDS: MORPHINE SULFATE (*CRX) 4 MG/ML INJ IV PUSH ×2 (01:27→03:40)
--- NOTE | 2024-06-05 03:06 | PM.IMHP ---
H&P: HPI History of Present Illness Date/Time: 06/05/24 03:06 Chief Complaint: ?waist pain? Narrative: 71-year-old female past medical history of osteoporosis, coronary disease status post CABG, atrial fibrillation, hypertrophic cardiomyopathy, chronic kidney disease, DVT, and chronic anemia who presented to the ER via EMS from [facility] due to worsening pain. She initially reported pain in her waist height in her back. After about a day of symptoms the pain then started radiating down her back into her left leg. She thought that she could have some sciatica. She reported that the pain started about 5 days ago. The pain is worse with any movement including raising her arms or shifting her weight. She thought that she may have pulled a muscle. However as than days have gone on her pain is unrelieved despite trying her home Tylenol. It is now bad enough that she cannot stand just walk with her Rollator walker. She denies any loss of bowel or bladder control. She has not had any recent falls. The pain started when she woke up. Her pain is a 9/10 in intensity and is sharp. He he pain is down to 6/10 intensity after morphine. She reports that she has lost about 50 lb over the last 4 years. She has eliminated snacking. However over the last 3-4 months she has continued to lose weight between 3-4 lb a month. She states she does not like the food at the assisted living facility. She usually has no appetite in does have to remind herself to eat. She states she does not tolerate Ensure or milk containing products. Review of Systems Review of Systems: 12 systems were reviewed with pertinent positives and negatives per HPI. Except as documented in the HPI, all other systems were reviewed and are negative. [facility] Past Medical History Medical History (Updated 06/05/24 @ 03:20 by Shirley Newsome DO) Choledocholithiasis Status post ERCP with post ERCP pancreatitis at [place] 12/03/2023 Acute hepatitis (11/15/23) Due to medications verses choledocholithiasis Chronic kidney disease Stage III A Chronic anemia Paroxysmal atrial fibrillation History of cardioversion in January 2023 Deep venous thrombosis 1960s Intra-articular fracture of distal end of right radius with volar angulation Close reduction January 2023 Benign positional vertigo Diverticulitis With history of perforation Hypertrophic cardiomyopathy Apical variant noted on cardiac MRI 08/22/2022 Chronic lower back pain Osteoporosis Hyperlipidemia Cardiorenal syndrome with renal failure Lumbar spinal stenosis Pancreatic cyst Acute non-ST elevation myocardial infarction (NSTEMI) Compression fracture of thoracic spine, non-traumatic (2018) T11 Gastro-esophageal reflux disease without esophagitis Occlusion and stenosis of bilateral carotid arteries Chronic idiopathic constipation Surgical History Surgical History History of cataract extraction with lens replacement History of coronary artery bypass graft x 2 (2012) LAWSON to LAD and saphenous vein graft to obtuse marginal History of bowel resection (1992) Due to prior bowel perforation History of cholecystectomy History of total right knee replacement (2017) History of lumbar surgery (1998) Lumbar diskectomy Family History Family History Father Malignant neoplasm of prostate Mother Alzheimer's dementia Sibling Alzheimer's dementia Social History Social History Social History: Surrogate medical decision maker: Storm Lobato, son. Code status: Full code. Smoking status: Never smoker Second hand tobacco smoke exposure: Yes Alcohol intake: never Substance use: never Substance use type: does not use Do You Feel Safe in your Home?: Yes Lack of Transportation: No Lack of Food: Never True Current Housing: I Have Housing Concerned About Future Housing: No Difficulty Paying Gas/Electric Bills: No Difficulty Paying for Meds: No Currently Unemployed: No Education: Never Attended/Kindergarten Only Difficulty w/ Childcare or Family Care: No Living arrangements: assisted living Additional living arrangements comments: . She has 3 sons. Ambulates with a walker. Spiritual care concerns: No Agree to blood products: Yes Meds Home Medications and Allergies Home Medications ?Medication ?Instructions ?Recorded ?Confirmed ?Type acetaminophen 500 mg tablet 1,000 mg PO Q6H PRN Pain (Scale 04/02/22 06/05/24 History (Tylenol Extra Strength) Score 1-3) alendronate 70 mg tablet 70 mg PO WEEKLY #13 tabs 11/07/22 06/05/24 Rx ezetimibe 10 mg tablet 10 mg PO DAILY #30 tabs 11/14/22 06/05/24 Rx amiodarone 200 mg tablet 400 mg PO DAILY 04/15/23 06/05/24 History atorvastatin 80 mg tablet 80 mg PO HS 04/15/23 06/05/24 History bisacodyl 10 mg rectal suppository 10 mg RECTAL DAILY PRN Constipation 04/15/23 06/05/24 History (Dulcolax (bisacodyl)) calcium 500 mg (as 1 tablet PO DAILY 04/15/23 06/05/24 History carbonate)-vitamin D3 5 mcg (200 unit) tablet (Oyster Shell Calcium-Vitamin D3) pantoprazole 40 mg tablet,delayed 40 mg PO QAM 04/15/23 06/05/24 History release sertraline 50 mg tablet 50 mg PO DAILY 04/15/23 06/05/24 History apixaban 5 mg tablet (Eliquis) 5 mg PO Q12HR #60 tabs 04/26/23 06/05/24 Rx midodrine 2.5 mg tablet 5 mg (2 x 2.5 mg) PO TID #90 tabs 04/26/23 06/05/24 Rx linaclotide 145 mcg capsule 145 mcg PO DAILY PRN Constipation 07/31/23 06/05/24 Rx (Linzess) #90 caps loperamide 2 mg capsule 2 mg PO DAILY PRN loose stool 06/05/24 06/05/24 History metoprolol succinate 25 mg 25 mg PO DAILY 06/05/24 06/05/24 History tablet,extended release 24 hr ondansetron 4 mg disintegrating 4 mg PO Q8H PRN nausea and vomiting 06/05/24 06/05/24 History tablet Allergies Allergy/AdvReac Type Severity Reaction Status Date / Time codeine Allergy Unknown Anaphylaxis Verified 06/04/24 19:24 Latex, Natural Rubber Allergy Unknown SKIN Verified 06/04/24 19:24 IRRITATION nitroglycerin AdvReac Severe Hypotension Verified 06/04/24 19:24 tramadol AdvReac Mild Nausea and Verified 06/04/24 19:24 Vomiting, HEADACHE, DIZZINESS Vital Signs Vital Signs - 24 hr 06/04/24 19:19 06/04/24 23:43 06/05/24 00:48 Temperature 97.8 F Pulse Rate 71 70 82 Respiratory Rate 16 18 18 Blood Pressure 192/72 H 172/94 H 178/77 H Pulse Oximetry 100 100 98 Oxygen Delivery Room Air 06/05/24 02:12 Temperature Pulse Rate 90 Respiratory Rate 18 Blood Pressure 155/73 H Pulse Oximetry 100 Oxygen Delivery Exam Narrative: Weight 57.3 kg BMI 22.4 Const: Other: No acute distress, well-developed well-nourished, appears stated age HENMT: Other: Head is normocephalic atraumatic, mucous membranes are moist, no oral pharyngeal erythema, upper and lower dentures in place Eyes: Other: Pupils are equal and reactive evidence of lens replacements bilaterally, Neck: Other: No JVD, no lymphadenopathy Resp: Other: Clear to auscultation, no increased work of breathing Cardio: Other: Regular rate, regular rhythm, 2+ bilateral radial pedal pulses, no JVD GI: Other: Soft, nontender, nondistended, positive bowel sounds Back/Spine/Pelvis: Other: Patient is he pain with movement her back is difficult to tell she is having reproducible pain on palpation due to her degree of discomfort with position change in itself Skin: Other: No pallor, non jaundice Neuro: Other: Alert orient x4, speech is clear, no facial asymmetry, Extrem: Other: Patient has pain in her right hip with movement of her right lower extremity that is chronic and baseline, she has no lower extremity edema, she has 5/5 [place] and plantar flexion strength Psych: Other: Appropriate mood and affect, pleasant and cooperative, intact judgment and insight H&P: Results Labs Labs: Laboratory Tests 06/04/24 21:08 06/04/24 21:08 06/04/24 21:08 WBC 4.9 RBC 3.31 L Hgb 11.0 L D Hct 33.3 L MCV 100.6 H MCH 33.2 MCHC 33.0 RDW 12.0 Plt Count 152 MPV 10.9 H Immature Gran % (Auto) 0.2 Neut % (Auto) 67.1 Lymph % (Auto) 19.2 [place] % (Auto) 12.3 H Eos % (Auto) 0.6 Baso % (Auto) 0.6 Lymph # (Auto) 0.95 [place] # (Auto) 0.6 Eos # (Auto) 0.0 Baso # (Auto) 0.0 Abs Immat Gran (auto) 0.01 Absolute Neuts (auto) 3.3 Absolute Nucleated RBC 0.000 Nucleated RBC % 0.0 Sodium 136 L Potassium 4.2 Chloride 106 Carbon Dioxide 24 Anion Gap 6 BUN 20 H Creatinine 1.10 H Estim Creat Clear Calc 32 Estimated GFR 48 L Glucose 108 Calcium 10.0 Total Bilirubin 1.2 AST 24 ALT 12 Alkaline Phosphatase 56 Total Protein 7.0 Albumin 4.1 Impressions Chest/Abdomen/Pelvis CT 06/04/24 23:06 IMPRESSION: 1. T9 burst fracture, likely acute or subacute. Assessment and Plan Assessment and plan (1) Burst fracture of T9 vertebra: Code(s): S22.071A - Stable burst fracture of T9-T10 vertebra, initial encounter for closed fracture Status: Acute (2) Radicular leg pain: Code(s): M54.10 - Radiculopathy, site unspecified Status: Acute Plan Patient has he acute T9 compression fracture. She is on arrival to the tolerate standing up due to the degree of pain. She has been admitted for pain control and likely rehab placement. Neurosurgery has been consulted. Will continue lidocaine patch and p.r.n. morphine. Also had oral [place]. Will encourage use of [place] as 1st line and then give morphine as second-line Patient has paroxysmal AFib, cardiomyopathy, hypertension, GERD and orthostatic hypotension among other chronic medical conditions but her chronic medical conditions are stable. Will resume patient's home medications Quality VTE Prophylaxis VTE prophylaxis: pharmacologic ordered (Continue home Eliquis.) Hospitalist [facility] Advance Care Plan I have confirmed that the patient's Advanced Care Plan is present, code status is documented, or surrogate decision maker is listed in patient medical record.: Yes Medication Reconciliation I have utilized all available resources to obtain, update and review the patients current medications (includes all prescriptions, OTC, herbals, cannabis, and nutritional supplements).: Yes
--- NOTE | 2024-06-05 03:06 | ADMGEN ---
This patient, Tiera Lobato, was admitted to Medical Room 348-01. Patient/family oriented to hospital policies and general routines including ID bracelet, bed and alarms, visiting hours, pain management, procedures, bathroom and other care routines, personal items, smoking policy, room service/diet, and visiting hours. Information on how to activate the Rapid Response Team has been discussed. Patient/Family are encouraged to report perceived risks to care and to ask questions if they do not understand what they are told or what they should do.
[2024-06-05] MEDS: HYDROcodone/acetaminophen (*CRX) 5-325 MG TABLET 1 TAB PO ×3 (06:15→18:28)
[2024-06-05] MEDS: AMIODARONE HCL 200 MG TABLET 400 MG PO (09:10)
[2024-06-05] MEDS: APIXABAN 5 MG TABLET PO ×2 (09:11→20:17)
[2024-06-05] MEDS: METOPROLOL SUCCINATE EXT REL 25 MG TABCR PO (09:11)
[2024-06-05] MEDS: SERTRALINE HCL 50 MG TABLET PO (09:11)
[2024-06-05] MEDS: MIDODRINE HCL 2.5 MG TABLET 5 MG PO ×3 (09:11→18:28)
[2024-06-05] MEDS: CALCIUM/VITAMIN D 500 MG/5 MCG (200 I.U.) TABLET PO (09:11)
[2024-06-05] MEDS: EZETIMIBE 10 MG TABLET PO (09:11)
[2024-06-05] MEDS: PANTOPRAZOLE 40 MG TABLET PO (09:12)
--- NOTE | 2024-06-05 10:34 | P.PNIM_ITS ---
Progress Note: A&P Assessment and Plan (1) Burst fracture of T9 vertebra: Code(s): S22.071A - Stable burst fracture of T9-T10 vertebra, initial encounter for closed fracture Status: Acute Assessment and Plan: pain control lidocaine patch, norco 5/325 q4h prn, morphine for breakthrough pain will add zofran PRN neurosurgery consulted (2) Radicular leg pain: Code(s): M54.10 - Radiculopathy, site unspecified Status: Acute Plan Patient has he acute T9 compression fracture. She is on arrival to the tolerate standing up due to the degree of pain. She has been admitted for pain control and likely rehab placement. Neurosurgery has been consulted. Will continue lidocaine patch and p.r.n. morphine. Also had oral [place]. Will encourage use of [place] as 1st line and then give morphine as second-line Patient has paroxysmal AFib, cardiomyopathy, hypertension, GERD and orthostatic hypotension among other chronic medical conditions but her chronic medical conditions are stable. Will resume patient's home medications Time Spent With Patient Time with patient: Greater than 35 minutes Subjective Date/time seen: 06/05/24 10:34 Interval history: ?waist pain? Narrative: 71-year-old female past medical history of osteoporosis, coronary disease status post CABG, atrial fibrillation, hypertrophic cardiomyopathy, chronic kidney disease, DVT, and chronic anemia who presented to the ER via EMS from [facility] due to worsening pain. She initially reported pain in her waist height in her back. After about a day of symptoms the pain then started radiating down her back into her left leg. She thought that she could have some sciatica. She reported that the pain started about 5 days ago. The pain is worse with any movement including raising her arms or shifting her weight. She thought that she may have pulled a muscle. However as than days have gone on her pain is unrelieved despite trying her home Tylenol. It is now bad enough that she cannot stand just walk with her Rollator walker. She denies any loss of bowel or bladder control. She has not had any recent falls. The pain started when she woke up. Her pain is a 9/10 in intensity and is sharp. He he pain is down to 6/10 intensity after morphine pt is seen and examined. She reports pain, morphine seemed to work well, as PO meds are not relieving her pain much. She denies nausea. no new symptoms. neurosurgery was consulted- awaiting recommendations. Review of Systems Review of Systems: 12 systems were reviewed with pertinent positives and negatives per HPI. Except as documented in the HPI, all other systems were reviewed and are negative. Exam Narrative: Weight 57.3 kg BMI 22.4 Const: Other: No acute distress, well-developed well-nourished, appears stated age HENMT: Other: Head is normocephalic atraumatic, mucous membranes are moist, no oral pharyngeal erythema, upper and lower dentures in place Eyes: Other: Pupils are equal and reactive Neck: Other: No JVD, no lymphadenopathy Resp: Other: Clear to auscultation, no increased work of breathing Cardio: Other: Regular rate, regular rhythm, 2+ bilateral radial pedal pulses, no JVD GI: Other: Soft, nontender, nondistended, positive bowel sounds Back/Spine/Pelvis: Other: Pain with movement Skin: Other: No pallor, non jaundice Neuro: Other: Alert orient x4, speech is clear, no facial asymmetry, Extrem: Other: strength intact to BLE Psych: Affect: normal affect Other: Appropriate mood and affect, pleasant and cooperative, intact judgment and insi ght Objective Data Vital Signs Vital Signs: Vital Signs - 24 hr 06/04/24 19:19 06/04/24 23:43 06/05/24 00:48 Temperature 97.8 F Pulse Rate 71 70 82 Respiratory Rate 16 18 18 Blood Pressure 192/72 H 172/94 H 178/77 H Pulse Oximetry 100 100 98 Oxygen Delivery Room Air 06/05/24 02:12 06/05/24 03:21 06/05/24 06:00 Temperature 96.9 F L 97.6 F Pulse Rate 90 60 58 L Respiratory Rate 18 16 18 Blood Pressure 155/73 H 174/69 H 141/54 H Pulse Oximetry 100 99 97 Oxygen Delivery 06/05/24 09:10 06/05/24 09:11 Temperature Pulse Rate 80 80 Respiratory Rate Blood Pressure Pulse Oximetry Oxygen Delivery Intake/Output Intake/Output: Intake & Output 06/02/24 06/03/24 06/04/24 06/05/24 23:59 23:59 23:59 23:59 Intake Total 300 Output Total 400 Balance -100 Meds/Results Medications: Active Medications Generic Name Dose Route Start Last Admin Trade Name Alliq PRN Reason Stop Dose Admin Acetaminophen 500 mg 06/05/24 06:03 Acetaminophen 500 Mg Tablet PO Q6H PRN Pain (Scale Score 1-3) Hydrocodone Bitart/Acetaminophen 1 tab 06/05/24 06:01 06/05/24 06:15 Hydrocodone/Acetaminophen (*Crx) 5-325 Mg Tablet PO 1 tab Q4H PRN Administration Pain Rated 4-10 Amiodarone HCl 400 mg 06/05/24 09:00 06/05/24 09:10 Amiodarone Hcl 200 Mg Tablet PO 400 mg DAILY AGUS Administration Apixaban 5 mg 06/05/24 09:00 06/05/24 09:11 Apixaban 5 Mg Tablet PO 5 mg Q12HR AGUS Administration Atorvastatin Calcium 80 mg 06/05/24 21:00 Atorvastatin 40 Mg Tablet PO HS AGUS Bisacodyl 10 mg 06/05/24 06:03 Bisacodyl 10 Mg Suppository RECTAL DAILY PRN Constipation Calcium Carbonate 500 mg 06/05/24 09:00 06/05/24 09:11 Calcium/Vitamin D 500 Mg/5 Mcg (200 I.U.) Tablet PO 500 mg DAILY AGUS Administration Ezetimibe 10 mg 06/05/24 09:00 06/05/24 09:11 Ezetimibe 10 Mg Tablet PO 10 mg DAILY AGUS Administration Linaclotide 145 mcg 06/05/24 06:03 Linaclotide 145 Mcg Capsule PO DAILY PRN Constipation Metoprolol Succinate 25 mg 06/05/24 09:00 06/05/24 09:11 Metoprolol Succinate Ext Rel 25 Mg Tabcr PO 25 mg DAILY AGUS Administration Midodrine 5 mg 06/05/24 09:00 06/05/24 09:11 Midodrine Hcl 2.5 Mg Tablet PO 5 mg TID AGUS Administration Morphine Sulfate 4 mg 06/05/24 06:03 Morphine Sulfate (*Crx) 4 Mg/Ml Inj IV PUSH Q4H PRN Breakthrough Pain Pantoprazole Sodium 40 mg 06/05/24 09:00 06/05/24 09:12 Pantoprazole 40 Mg Tablet PO 40 mg QAM AGUS Administration Sertraline HCl 50 mg 06/05/24 09:00 06/05/24 09:11 Sertraline Hcl 50 Mg Tablet PO 50 mg DAILY AGUS Administration Radiology Results: ITS Impressions Chest/Abdomen/Pelvis CT 06/04/24 23:06 IMPRESSION: 1. T9 burst fracture, likely acute or subacute. Labs Labs: Laboratory Results - last 24 hr 06/04/24 21:08 WBC 4.9 RBC 3.31 L Hgb 11.0 L D Hct 33.3 L MCV 100.6 H MCH 33.2 MCHC 33.0 RDW 12.0 Plt Count 152 MPV 10.9 H Immature Gran % (Auto) 0.2 Neut % (Auto) 67.1 Lymph % (Auto) 19.2 [place] % (Auto) 12.3 H Eos % (Auto) 0.6 Baso % (Auto) 0.6 Lymph # (Auto) 0.95 [place] # (Auto) 0.6 Eos # (Auto) 0.0 Baso # (Auto) 0.0 Abs Immat Gran (auto) 0.01 Absolute Neuts (auto) 3.3 Absolute Nucleated RBC 0.000 Nucleated RBC % 0.0 Sodium 136 L Potassium 4.2 Chloride 106 Carbon Dioxide 24 Anion Gap 6 BUN 20 H Creatinine 1.10 H Estim Creat Clear Calc 32 Estimated GFR 48 L Glucose 108 Calcium 10.0 Total Bilirubin 1.2 AST 24 ALT 12 Alkaline Phosphatase 56 Total Protein 7.0 Albumin 4.1 Quality VTE Prophylaxis VTE prophylaxis: pharmacologic ordered (Continue home Eliquis.)
[2024-06-05] MEDS: ATORVASTATIN 40 MG TABLET 80 MG PO (20:17)
[2024-06-06 05:53] VITALS: BP 172/71; PULSE 63; RESP 16; TEMP 36.6; O2SAT 96
[2024-06-06] MEDS: HYDROcodone/acetaminophen (*CRX) 5-325 MG TABLET 1 TAB PO ×2 (06:15→14:35)
[2024-06-06] MEDS: SERTRALINE HCL 50 MG TABLET PO (08:32)
[2024-06-06] MEDS: PANTOPRAZOLE 40 MG TABLET PO (08:32)
[2024-06-06 08:33] VITALS: PULSE 69
[2024-06-06] MEDS: APIXABAN 5 MG TABLET PO ×2 (08:33→20:31)
[2024-06-06] MEDS: CALCIUM/VITAMIN D 500 MG/5 MCG (200 I.U.) TABLET PO (08:33)
[2024-06-06] MEDS: EZETIMIBE 10 MG TABLET PO (08:33)
[2024-06-06] MEDS: MIDODRINE HCL 2.5 MG TABLET 5 MG PO ×3 (08:33→17:08)
[2024-06-06] MEDS: METOPROLOL SUCCINATE EXT REL 25 MG TABCR PO (08:33)
[2024-06-06 08:34] VITALS: PULSE 69
[2024-06-06] MEDS: AMIODARONE HCL 200 MG TABLET 400 MG PO (08:34)
[2024-06-06] MEDS: MORPHINE SULFATE (*CRX) 4 MG/ML INJ IV PUSH ×2 (08:36→20:33)
--- NOTE | 2024-06-06 11:21 | P.PNIM_ITS ---
Progress Note: A&P Assessment and Plan (1) Burst fracture of T9 vertebra: Code(s): S22.071A - Stable burst fracture of T9-T10 vertebra, initial encounter for closed fracture Status: Acute Assessment and Plan: pain control lidocaine patch, norco 5/325 q4h prn, morphine for breakthrough pain zofran PRN for nausea neurosurgery consulted- awaiting recommendations - no new neuro changes- ni numbness/tingling/circulation intact (2) Radicular leg pain: Code(s): M54.10 - Radiculopathy, site unspecified Status: Acute (3) Hyponatremia: Code(s): E87.1 - Hypo-osmolality and hyponatremia Status: Acute Assessment and Plan: hyponatremia this am could be due to heart healthy diet-will stop and change to regula Plan Patient has he acute T9 compression fracture. She is on arrival to the tolerate standing up due to the degree of pain. She has been admitted for pain control and likely rehab placement. Neurosurgery has been consulted. Will continue lidocaine patch and p.r.n. morphine. Also had oral [place]. Will encourage use of [place] as 1st line and then give morphine as second-line Patient has paroxysmal AFib, cardiomyopathy, hypertension, GERD and orthostatic hypotension among other chronic medical conditions but her chronic medical conditions are stable. Time Spent With Patient Time with patient: Greater than 35 minutes Subjective Date/time seen: 06/06/24 11:21 Interval history: ?waist pain? Narrative: 71-year-old female past medical history of osteoporosis, coronary disease status post CABG, atrial fibrillation, hypertrophic cardiomyopathy, chronic kidney disease, DVT, and chronic anemia who presented to the ER via EMS from [facility] due to worsening pain. She initially reported pain in her waist height in her back. After about a day of symptoms the pain then started radiating down her back into her left leg. She thought that she could have some sciatica. She reported that the pain started about 5 days ago. The pain is worse with any movement including raising her arms or shifting her weight. She thought that she may have pulled a muscle. However as than days have gone on her pain is unrelieved despite trying her home Tylenol. It is now bad enough that she cannot stand just walk with her Rollator walker. She denies any loss of bowel or bladder control. She has not had any recent falls. The pain started when she woke up. Her pain is a 9/10 in intensity and is sharp. He he pain is down to 6/10 intensity after morphine pt is seen and examined. She reports pain, morphine seemed to work well, as PO meds are not relieving her pain much. She denies nausea. no new symptoms. neurosurgery was consulted- awaiting recommendations. 06/06- pt is seen and examined today. Pain is still an issues- discussed realistic expectations for pain level. Eating and drinking ok. Waiting for neurosurgery eval. Wants to go home Review of Systems Review of Systems: 12 systems were reviewed with pertinent positives and negatives per HPI. Except as documented in the HPI, all other systems were reviewed and are negative. Exam Narrative: Weight 57.3 kg BMI 22.4 Const: Other: No acute distress, well-developed well-nourished, appears stated age HENMT: Other: Head is normocephalic atraumatic, mucous membranes are moist, no oral pharyngeal erythema, upper and lower dentures in place Eyes: Other: Pupils are equal and reactive Neck: Other: No JVD, no lymphadenopathy Resp: Other: Clear to auscultation, no increased work of breathing Cardio: Other: Regular rate, regular rhythm, 2+ bilateral radial pedal pulses, no JVD GI: Other: Soft, nontender, nondistended, positive bowel sounds Back/Spine/Pelvis: Other: Pain with movement Skin: Other: No pallor, non jaundice Neuro: Other: Alert orient x4, speech is clear, no facial asymmetry, Extrem: Other: strength intact to BLE Psych: Affect: normal affect Other: Appropriate mood and affect, pleasant and cooperative, intact judgment and insight Objective Data Vital Signs Vital Signs: Vital Signs - 24 hr 06/05/24 13:19 06/05/24 14:00 06/05/24 20:28 Temperature 99.1 F 98.6 F Pulse Rate 63 81 Respiratory Rate 18 16 Blood Pressure 124/53 L 143/66 H Pulse Oximetry 95 99 96 Oxygen Delivery Room Air 06/06/24 05:53 06/06/24 08:00 06/06/24 08:33 Temperature 97.9 F Pulse Rate 63 69 Respiratory Rate 16 Blood Pressure 172/71 H Pulse Oximetry 96 Oxygen Delivery Room Air 06/06/24 08:34 Temperature Pulse Rate 69 Respiratory Rate Blood Pressure Pulse Oximetry Oxygen Delivery Intake/Output Intake/Output: Intake & Output 06/03/24 06/04/24 06/05/24 06/06/24 23:59 23:59 23:59 23:59 Intake Total 2070 600 Output Total 750 300 Balance 1320 300 Meds/Results Medications: Active Medications Generic Name Dose Route Start Last Admin Trade Name Freq PRN Reason Stop Dose Admin Acetaminophen 500 mg 06/05/24 06:03 Acetaminophen 500 Mg Tablet PO Q6H PRN Pain (Scale Score 1-3) Hydrocodone Bitart/Acetaminophen 1 tab 06/05/24 06:01 06/06/24 06:15 Hydrocodone/Acetaminophen (*Crx) 5-325 Mg Tablet PO 1 tab Q4H PRN Administration Pain Rated 4-10 Amiodarone HCl 400 mg 06/05/24 09:00 06/06/24 08:34 Amiodarone Hcl 200 Mg Tablet PO 400 mg DAILY AGUS Administration Apixaban 5 mg 06/05/24 09:00 06/06/24 08:33 Apixaban 5 Mg Tablet PO 5 mg Q12HR AGUS Administration Atorvastatin Calcium 80 mg 06/05/24 21:00 06/05/24 20:17 Atorvastatin 40 Mg Tablet PO 80 mg HS AGUS Administration Bisacodyl 10 mg 06/05/24 06:03 Bisacodyl 10 Mg Suppository RECTAL DAILY PRN Constipation Calcium Carbonate 500 mg 06/05/24 09:00 06/06/24 08:33 Calcium/Vitamin D 500 Mg/5 Mcg (200 I.U.) Tablet PO 500 mg DAILY AGUS Administration Ezetimibe 10 mg 06/05/24 09:00 06/06/24 08:33 Ezetimibe 10 Mg Tablet PO 10 mg DAILY AGUS Administration Linaclotide 145 mcg 06/05/24 06:03 Linaclotide 145 Mcg Capsule PO DAILY PRN Constipation Metoprolol Succinate 25 mg 06/05/24 09:00 06/06/24 08:33 Metoprolol Succinate Ext Rel 25 Mg Tabcr PO 25 mg DAILY AGUS Administration Midodrine 5 mg 06/05/24 09:00 06/06/24 08:33 Midodrine Hcl 2.5 Mg Tablet PO 5 mg TID AGUS Administration Morphine Sulfate 4 mg 06/05/24 06:03 06/06/24 08:36 Morphine Sulfate (*Crx) 4 Mg/Ml Inj IV PUSH 4 mg Q4H PRN Administration Breakthrough Pain Ondansetron HCl 4 mg 06/05/24 10:41 Ondansetron Inj 4 Mg/2 Ml Vial IV PUSH Q6H PRN Nausea And Vomiting Pantoprazole Sodium 40 mg 06/05/24 09:00 06/06/24 08:32 Pantoprazole 40 Mg Tablet PO 40 mg QAM AGUS Administration Sertraline HCl 50 mg 06/05/24 09:00 06/06/24 08:32 Sertraline Hcl 50 Mg Tablet PO 50 mg DAILY AGUS Administration Radiology Results: ITS Impressions Chest/Abdomen/Pelvis CT 06/04/24 23:06 IMPRESSION: 1. T9 burst fracture, likely acute or subacute. Quality VTE Prophylaxis VTE prophylaxis: pharmacologic ordered (Continue home Eliquis.)
[2024-06-06 12:57] LABS: Hematocrit 34.9 % (37.0-47.0); Hemoglobin 11.3 g/dL (12.0-15.0); Mean Corpuscular HGB Conc 32.4 g/dl (32-36); Mean Corpuscular Hemoglobin 33.3 pg (26-34); Mean Corpuscular Volume 102.9 fl (80-100); Mean Platelet Volume 10.9 fl (7.4-10.4); Platelet Count Result 172 k/mm3 (150-375); Red Blood Count 3.39 M/mm3 (4.2-5.4); Red Cell Distribution Width 11.9 % (11.5-14.5); White Blood Count 5.2 K/mm3 (4.5-10.0)
[2024-06-06 13:10] LABS: Anion Gap 6 mmol/L (4-12); Blood Urea Nitrogen 27 mg/dL (7-17); Calcium 10.3 mg/dL (8.4-10.2); Carbon Dioxide 24 mmol/L (22-30); Chloride 101 mmol/L (98-107); Estimated CRCL calculation 31 ml/min; Estimated Glomerular Filt Rate 48; Glucose 99 mg/dL (65-110); Potassium 4.8 mmol/L (3.4-5.0); Sodium 131 mmol/L (137-145)
[2024-06-06 14:28] VITALS: BP 126/52; PULSE 60; RESP 18; TEMP 36.4; O2SAT 100
[2024-06-06] MEDS: ATORVASTATIN 40 MG TABLET 80 MG PO (20:30)
[2024-06-06 20:52] VITALS: BP 114/63; PULSE 60; RESP 16; TEMP 36.9; O2SAT 98
[2024-06-07 06:00] VITALS: BP 135/54; PULSE 54; RESP 14; TEMP 37.1; O2SAT 96
[2024-06-07] MEDS: ONDANSETRON INJ 4 MG/2 ML VIAL IV PUSH (07:45)
[2024-06-07] MEDS: HYDROcodone/acetaminophen (*CRX) 5-325 MG TABLET 1 TAB PO ×3 (07:45→16:46)
[2024-06-07 08:00] VITALS: O2SAT 96
[2024-06-07 09:24] VITALS: PULSE 60
[2024-06-07] MEDS: APIXABAN 5 MG TABLET PO ×2 (09:24→20:37)
[2024-06-07] MEDS: AMIODARONE HCL 200 MG TABLET 400 MG PO (09:24)
[2024-06-07] MEDS: CALCIUM/VITAMIN D 500 MG/5 MCG (200 I.U.) TABLET PO (09:24)
[2024-06-07] MEDS: EZETIMIBE 10 MG TABLET PO (09:24)
[2024-06-07 09:25] VITALS: PULSE 60
[2024-06-07] MEDS: MIDODRINE HCL 2.5 MG TABLET 5 MG PO ×3 (09:25→16:44)
[2024-06-07] MEDS: PANTOPRAZOLE 40 MG TABLET PO (09:25)
[2024-06-07] MEDS: SERTRALINE HCL 50 MG TABLET PO (09:25)
[2024-06-07] MEDS: METOPROLOL SUCCINATE EXT REL 25 MG TABCR PO (09:25)
[2024-06-07] MEDS: ACETAMINOPHEN 500 MG TABLET PO (09:27)
--- NOTE | 2024-06-07 10:10 | PM.IMPN ---
Progress Note: A&P Assessment and Plan (1) Burst fracture of T9 vertebra: Code(s): S22.071A - Stable burst fracture of T9-T10 vertebra, initial encounter for closed fracture Status: Acute Assessment and Plan: pain control lidocaine patch, norco 5/325 q4h prn, morphine for breakthrough pain zofran PRN for nausea neurosurgery consulted- awaiting recommendations initial consult was placed on 06/05 per ed physician- case discussed per ed md. as long as pain is controlled- ok to d/c home, if not- pt/ot eval and possible placement. - no new neuro changes- no numbness/tingling/circulation intact (2) Radicular leg pain: Code(s): M54.10 - Radiculopathy, site unspecified Status: Acute Assessment and Plan: CONTINUE LIDOCAINE PATCH, PAIN MEDS (3) Hyponatremia: Code(s): E87.1 - Hypo-osmolality and hyponatremia Status: Acute Assessment and Plan: hyponatremia this am could be due to heart healthy diet-will stop and change to regula Plan Patient has he acute T9 compression fracture. She is on arrival to the tolerate standing up due to the degree of pain. She has been admitted for pain control and likely rehab placement. Neurosurgery has been consulted. Will continue lidocaine patch and p.r.n. morphine. Also had oral [place]. Will encourage use of [place] as 1st line and then give morphine as second-line Patient has paroxysmal AFib, cardiomyopathy, hypertension, GERD and orthostatic hypotension among other chronic medical conditions but her chronic medical conditions are stable. Time Spent With Patient Time with patient: Greater than 35 minutes Subjective Date/time seen: 06/07/24 10:10 Interval history: ?waist pain? Narrative: 71-year-old female past medical history of osteoporosis, coronary disease status post CABG, atrial fibrillation, hypertrophic cardiomyopathy, chronic kidney disease, DVT, and chronic anemia who presented to the ER via EMS from [facility] due to worsening pain. She initially reported pain in her waist height in her back. After about a day of symptoms the pain then started radiating down her back into her left leg. She thought that she could have some sciatica. She reported that the pain started about 5 days ago. The pain is worse with any movement including raising her arms or shifting her weight. She thought that she may have pulled a muscle. However as than days have gone on her pain is unrelieved despite trying her home Tylenol. It is now bad enough that she cannot stand just walk with her Rollator walker. She denies any loss of bowel or bladder control. She has not had any recent falls. The pain started when she woke up. Her pain is a 9/10 in intensity and is sharp. He he pain is down to 6/10 intensity after morphine pt is seen and examined. She reports pain, morphine seemed to work well, as PO meds are not relieving her pain much. She denies nausea. no new symptoms. neurosurgery was consulted- awaiting recommendations. 06/06- pt is seen and examined today. Pain is still an issues- discussed realistic expectations for pain level. Eating and drinking ok. Waiting for neurosurgery eval. Wants to go home 06/07 pt/ot was ordered. will wait for recommendations once assessment is completed. Review of Systems Review of Systems: 12 systems were reviewed with pertinent positives and negatives per HPI. Except as documented in the HPI, all other systems were reviewed and are negative. Exam Narrative: Weight 57.3 kg BMI 22.4 Const: Other: No acute distress, well-developed well-nourished, appears stated age HENMT: Other: Head is normocephalic atraumatic, mucous membranes are moist, no oral pharyngeal erythema, upper and lower dentures in place Eyes: Other: Pupils are equal and reactive Neck: Other: No JVD, no lymphadenopathy Resp: Other: Clear to auscultation, no increased work of breathing Cardio: Other: Regular rate, regular rhythm, 2+ bilateral radial pedal pulses, no JVD GI: Other: Soft, nontender, nondistended, positive bowel sounds Back/Spine/Pelvis: Other: Pain with movement Skin: Other: No pallor, non jaundice Neuro: Other: Alert orient x4, speech is clear, no facial asymmetry, Extrem: Other: strength intact to BLE Psych: Affect: normal affect Other: Appropriate mood and affect, pleasant and cooperative, intact judgment and insight Objective Data Vital Signs Vital Signs: Vital Signs - 24 hr 06/06/24 14:28 06/06/24 20:52 06/07/24 06:00 Temperature 97.6 F 98.4 F 98.8 F Pulse Rate 60 60 54 L Respiratory Rate 18 16 14 Blood Pressure 126/52 L 114/63 135/54 L Pulse Oximetry 100 98 96 Oxygen Delivery 06/07/24 08:00 06/07/24 09:24 06/07/24 09:25 Temperature Pulse Rate 60 60 Respiratory Rate Blood Pressure Pulse Oximetry 96 Oxygen Delivery Room Air Intake/Output Intake/Output: Intake & Output 06/04/24 06/05/24 06/06/24 06/07/24 23:59 23:59 23:59 23:59 Intake Total 2070 1360 720 Output Total 750 600 200 Balance 1320 760 520 Meds/Results Medications: Active Medications Generic Name Dose Route Start Last Admin Trade Name Freq PRN Reason Stop Dose Admin Acetaminophen 500 mg 06/05/24 06:03 06/07/24 09:27 Acetaminophen 500 Mg Tablet PO 500 mg Q6H PRN Administration Pain (Scale Score 1-3) Hydrocodone Bitart/Acetaminophen 1 tab 06/05/24 06:01 06/07/24 07:45 Hydrocodone/Acetaminophen (*Crx) 5-325 Mg Tablet PO 1 tab Q4H PRN Administration Pain Rated 4-10 Amiodarone HCl 400 mg 06/05/24 09:00 06/07/24 09:24 Amiodarone Hcl 200 Mg Tablet PO 400 mg DAILY AGUS Administration Apixaban 5 mg 06/05/24 09:00 06/07/24 09:24 Apixaban 5 Mg Tablet PO 5 mg Q12HR AGUS Administration Atorvastatin Calcium 80 mg 06/05/24 21:00 06/06/24 20:30 Atorvastatin 40 Mg Tablet PO 80 mg HS AGUS Administration Bisacodyl 10 mg 06/05/24 06:03 Bisacodyl 10 Mg Suppository RECTAL DAILY PRN Constipation Calcium Carbonate 500 mg 06/05/24 09:00 06/07/24 09:24 Calcium/Vitamin D 500 Mg/5 Mcg (200 I.U.) Tablet PO 500 mg DAILY AGUS Administration Ezetimibe 10 mg 06/05/24 09:00 06/07/24 09:24 Ezetimibe 10 Mg Tablet PO 10 mg DAILY AGUS Administration Linaclotide 145 mcg 06/05/24 06:03 Linaclotide 145 Mcg Capsule PO DAILY PRN Constipation Metoprolol Succinate 25 mg 06/05/24 09:00 06/07/24 09:25 Metoprolol Succinate Ext Rel 25 Mg Tabcr PO 25 mg DAILY AGUS Administration Midodrine 5 mg 06/05/24 09:00 06/07/24 09:25 Midodrine Hcl 2.5 Mg Tablet PO 5 mg TID AGUS Administration Morphine Sulfate 4 mg 06/05/24 06:03 06/06/24 20:33 Morphine Sulfate (*Crx) 4 Mg/Ml Inj IV PUSH 4 mg Q4H PRN Administration Breakthrough Pain Ondansetron HCl 4 mg 06/05/24 10:41 06/07/24 07:45 Ondansetron Inj 4 Mg/2 Ml Vial IV PUSH 4 mg Q6H PRN Administration Nausea And Vomiting Pantoprazole Sodium 40 mg 06/05/24 09:00 06/07/24 09:25 Pantoprazole 40 Mg Tablet PO 40 mg QAM AGUS Administration Sertraline HCl 50 mg 06/05/24 09:00 06/07/24 09:25 Sertraline Hcl 50 Mg Tablet PO 50 mg DAILY AGUS Administration Radiology Results: ITS Impressions Chest/Abdomen/Pelvis CT 06/04/24 23:06 IMPRESSION: 1. T9 burst fracture, likely acute or subacute. Labs Labs: Laboratory Results - last 24 hr 06/06/24 12:52 WBC 5.2 RBC 3.39 L Hgb 11.3 L Hct 34.9 L MCV 102.9 H MCH 33.3 MCHC 32.4 RDW 11.9 Plt Count 172 MPV 10.9 H Sodium 131 L Potassium 4.8 Chloride 101 Carbon Dioxide 24 Anion Gap 6 BUN 27 H Creatinine 1.10 H Estim Creat Clear Calc 31 Estimated GFR 48 L Glucose 99 Calcium 10.3 H Quality VTE Prophylaxis VTE prophylaxis: pharmacologic ordered (Continue home Eliquis.)
--- NOTE | 2024-06-07 12:50 | PCPTNOTE ---
Waiting for neurosurgery consult prior to PT evaluation. Will follow.
[2024-06-07 14:20] VITALS: BP 121/56; PULSE 51; RESP 16; TEMP 36.8; O2SAT 99
[2024-06-07] MEDS: ATORVASTATIN 40 MG TABLET 80 MG PO (20:37)
[2024-06-07 21:02] VITALS: BP 139/68; PULSE 54; RESP 18; TEMP 36.8; O2SAT 96
[2024-06-08] VITALS (7 sets, daily range): BP systolic 113–133; BP diastolic 49–54; PULSE 56–71; RESP 14–19; TEMP 36.2–37.1; O2SAT 96–99
[2024-06-08] MEDS: HYDROcodone/acetaminophen (*CRX) 5-325 MG TABLET 1 TAB PO ×2 (07:30→18:03)
[2024-06-08] MEDS: APIXABAN 5 MG TABLET PO ×2 (08:41→21:02)
[2024-06-08] MEDS: CALCIUM/VITAMIN D 500 MG/5 MCG (200 I.U.) TABLET PO (08:41)
[2024-06-08] MEDS: AMIODARONE HCL 200 MG TABLET 400 MG PO (08:41)
[2024-06-08] MEDS: METOPROLOL SUCCINATE EXT REL 25 MG TABCR PO (08:42)
[2024-06-08] MEDS: SERTRALINE HCL 50 MG TABLET PO (08:42)
[2024-06-08] MEDS: MIDODRINE HCL 2.5 MG TABLET 5 MG PO ×3 (08:42→16:41)
[2024-06-08] MEDS: PANTOPRAZOLE 40 MG TABLET PO (08:42)
[2024-06-08] MEDS: EZETIMIBE 10 MG TABLET PO (08:42)
--- NOTE | 2024-06-08 09:05 | PM.DS ---
DS: Admitting Diagnosis Discharge Date 06/08 Admitting Diagnosis back pain DS: Discharge Diagnosis Discharge Diagnosis (1) Burst fracture of T9 vertebra: Code(s): S22.071A - Stable burst fracture of T9-T10 vertebra, initial encounter for closed fracture Status: Acute (2) Radicular leg pain: Code(s): M54.10 - Radiculopathy, site unspecified Status: Acute (3) Hyponatremia: Code(s): E87.1 - Hypo-osmolality and hyponatremia Status: Acute (4) Contusion of right lower leg, subsequent encounter: Code(s): S80.11XD - Contusion of right lower leg, subsequent encounter Status: Acute DS: Summary Hospital Course Hospital Course: This is a 79 year-old female w/ osteoporisis admitted from ED with c/o Back pain and left-sided pain. Reports having pain since friday. Pain is across her mid back, worse on her left side, and radiates down the back of her left leg to the knee. No trauma. No urinary retention, bowel incontinence, weakness, saddle anesthesia. Denies Chest pain difficulty breathing abdominal pain fevers chills nausea vomiting diarrhea or urinary sxs imaging showed 18 9 acute versus subacute burst fracture with 2/5 loss of height. This corresponds with the pain wrapping around her left side. she is also having left-sided leg radicular pain. The patient has no motor deficits. the patient is is able to ambulate and use her leg however it causes her so much pain that she is not willing to stand up. Case was discussed with Dr. Krueger in ED who believes as long as the pain is controlled/can ambulate she can be discharged to follow-up with primary care physician. Pt was admitted for pain control and pt/ot. Pt/ot worked with her yesterday,06/07 and she did really well. Today, she is alert, oriented in good spirit. Was not requiring IV pain meds in over 24h. Will be discharged with robaxin, norco, lidocaine patch and back brace. PT/OT will work with her at [facility] Status at Discharge Functional status at discharge: uses cane/walker Overall status at discharge: patient is progressing back to baseline Time Spent with Patient Time attestation: Total time spent providing and/or coordinating discharge services: Time spent: Greater than 30 minutes Exam Narrative: Weight 57.3 kg BMI 22.4 Const: General: comfortable Other: No acute distress, well-developed well-nourished, appears stated age HENMT: Other: Head is normocephalic atraumatic, mucous membranes are moist, no oral pharyngeal erythema, upper and lower dentures in place Eyes: Other: Pupils are equal and reactive Neck: Other: No JVD, no lymphadenopathy Resp: Effort & Inspection: normal respiratory effort Other: Clear to auscultation, no increased work of breathing Cardio: Rate: regular rate Rhythm: regular rhythm Other: Regular rate, regular rhythm, 2+ bilateral radial pedal pulses, no JVD GI: Other: Soft, nontender, nondistended, positive bowel sounds Back/Spine/Pelvis: Other: Pain with movement Skin: Other: No pallor, non jaundice Neuro: Other: Alert orient x4, speech is clear, no facial asymmetry, Extrem: Other: strength intact to BLE Psych: Affect: normal affect Other: Appropriate mood and affect, pleasant and cooperative, intact judgment and insight Discharge Plan Discharge Attending physician on discharge: Henry Lopez Consulting providers: Prachi Krueger Discharging Clinician: Socorro Jose Activity: may shower Diet: regular and heart healthy Discharge Instructions: It will take time for your fracture to heal. Please take norco (with food) if your pain is sever, otherwise, take muscle relaxant and use lidocaine patch. Wear back brace for support. Please f/u with Primary care provider for further instructions/care. If you notices incontinence- urine or bowel, increased numbness/tingling/, and/or pain that is not longer controlled with medication, you might be to be re evaluated. Patient Instructions: Apixaban (By mouth) Patient Language: Liberian Follow-up/Referrals: Cristian Ling MD [Primary Care Provider] - 1 Week Discharge Medications: New hydrocodone-acetaminophen 5-325 mg Tablet 1 tablet PO Q6H PRN (Reason: Pain Rated 4-10) Qty: 12 0RF methocarbamol 500 mg tablet 750 mg PO Q6H PRN (Reason: back pain) Qty: 30 0RF lidocaine 5 % adhesive patch,medicated 1 patch topical DAILY Qty: 30 0RF Rx Instructions: leave on most painful area for up to 12 hrs Continued acetaminophen [Tylenol Extra Strength] 500 mg Tablet 1,000 mg PO Q6H PRN (Reason: Pain (Scale Score 1-3)) amiodarone 200 mg Tablet 400 mg PO DAILY bisacodyl [Dulcolax (bisacodyl)] 10 mg Suppository 10 mg RECTAL DAILY PRN (Reason: Constipation) pantoprazole 40 mg Tablet,Delayed Release (Dr/Ec) 40 mg PO QAM sertraline 50 mg Tablet 50 mg PO DAILY calcium carbonate-vitamin D3 [Oyster Shell Calcium-Vit D3] 500 mg-5 mcg (200 unit) Tablet 1 tablet PO DAILY atorvastatin 80 mg tablet 80 mg PO HS Eliquis 5 mg Tablet 5 mg PO Q12HR Qty: 60 0RF midodrine 2.5 mg Tablet 5 mg PO TID Qty: 90 0RF loperamide 2 mg capsule 2 mg PO DAILY PRN (Reason: loose stool) Rx Instructions: take 1 capsule after each loose stool as needed for diarrhea. Max Dose of 8 caps per day metoprolol succinate 25 mg tablet extended release 24 hr 25 mg PO DAILY ondansetron 4 mg tablet,disintegrating 4 mg PO Q8H PRN (Reason: nausea and vomiting) alendronate 70 mg tablet 70 mg PO WEEKLY Qty: 13 2RF Rx Instructions: Every Friday ezetimibe 10 mg tablet 10 mg PO DAILY Qty: 30 5RF Linzess 145 mcg capsule 145 mcg PO DAILY PRN (Reason: Constipation) Qty: 90 0RF Date of admission: 06/05/24 07:01 Primary Care Provider: Cristian Ling Admitting Provider: Shirley Newsome Attending physician on admission: Shirley Newsome Condition: Stable Quality VTE Prophylaxis VTE prophylaxis: pharmacologic ordered (Continue home Eliquis.) Hospitalist MIPS Heart Failure (Exclusion) Patient has history of Heart Transplant or Left Ventricular Assistive Device?: No IF YES, STOP HERE Heart Failure (Qualifier) Patient has current or prior documentation of LVEF less than or equal to 40%, or mod/servere depressed LVSF?: No IF NO, STOP HERE
[2024-06-08] MEDS: LINACLOTIDE 145 MCG CAPSULE PO (10:58)
[2024-06-08] MEDS: BISACODYL 10 MG SUPPOSITORY RECTAL ×2 (11:14→17:58)
[2024-06-08] MEDS: methocarbamoL 750 MG TABLET PO ×3 (12:30→21:02)
[2024-06-08] MEDS: ATORVASTATIN 40 MG TABLET 80 MG PO (21:02)
[2024-06-09 06:00] VITALS: BP 115/56; PULSE 69; RESP 16; TEMP 36.8; O2SAT 98
[2024-06-09] MEDS: LIDOCAINE 5% PATCH 1 PATCH TRANSDERM (09:46)
[2024-06-09 10:12] VITALS: PULSE 71
[2024-06-09] MEDS: CALCIUM/VITAMIN D 500 MG/5 MCG (200 I.U.) TABLET PO (10:12)
[2024-06-09] MEDS: AMIODARONE HCL 200 MG TABLET 400 MG PO (10:12)
[2024-06-09] MEDS: MIDODRINE HCL 2.5 MG TABLET 5 MG PO ×2 (10:12→13:12)
[2024-06-09 10:13] VITALS: PULSE 71
[2024-06-09] MEDS: PANTOPRAZOLE 40 MG TABLET PO (10:13)
[2024-06-09] MEDS: METOPROLOL SUCCINATE EXT REL 25 MG TABCR PO (10:13)
[2024-06-09] MEDS: EZETIMIBE 10 MG TABLET PO (10:14)
[2024-06-09] MEDS: methocarbamoL 750 MG TABLET PO ×2 (10:14→13:12)
[2024-06-09] MEDS: APIXABAN 5 MG TABLET PO (10:14)
[2024-06-09 13:41] VITALS: BP 133/51; PULSE 61; RESP 16; TEMP 36.2; O2SAT 98
--- NOTE | 2024-06-09 14:23 | P.DS_ITS ---
DS: Admitting Diagnosis Discharge Date 06/09/2024 Admitting Diagnosis Burst fracture of T9 vertebra radicular leg pain hyponatremia contusion of right lower leg, subsequent encounter DS: Discharge Diagnosis Discharge Diagnosis (1) Burst fracture of T9 vertebra: Code(s): S22.071A - Stable burst fracture of T9-T10 vertebra, initial encounter for closed fracture Status: Acute (2) Radicular leg pain: Code(s): M54.10 - Radiculopathy, site unspecified Status: Acute (3) Hyponatremia: Code(s): E87.1 - Hypo-osmolality and hyponatremia Status: Acute (4) Contusion of right lower leg, subsequent encounter: Code(s): S80.11XD - Contusion of right lower leg, subsequent encounter Status: Acute DS: Summary Hospital Course Reason for hospitalization: Burst fracture of T9 vertebra radicular leg pain hyponatremia contusion of right lower leg, subsequent encounter Hospital Course: 71-year-old female past medical history of osteoporosis, coronary disease status post CABG, atrial fibrillation, hypertrophic cardiomyopathy, chronic kidney disease, DVT, and chronic anemia who presented to the ER via EMS from [facility] due to worsening pain. CT showing T9 burst fracture, likely acute or subacute. Neurosurgery consulted and per ER note, Dr. Krueger who believes as long as the pain is controlled/can ambulate she can be discharged to follow-up with primary care physician. Patient given a TLSO brace for ambulation. Started on lidocaine patch, Robaxin, and [place] for pain. PT/OT evaluated patient and she was standby assistance with wheeled walker, walking 240 feet. Patient was to be discharged on 06/08 however she had no had a bowel movement in several days and a KUB showed an adynamic ileus. Patient received her Linzess and a Dulcolax supp ository and bowel movements returned. Repeat KUB showed nonspecific, nonobstructive bowel gas pattern. Patient started on simethicone for potential gas pains. At time of discharge patient had no complaints denying chest pain, shortness of breath, palpitations, nausea/vomiting, abdominal pain, dizziness/lightheadedness, tingling and numbness. Patient discharged back to [facility] with outpatient PT/OT per care coordination in a stable condition. She is to continue wearing her TLSO brace with ambulation and working with therapy. Follow up with her PCP in 1 week. Status at Discharge Functional status at discharge: uses cane/walker Time Spent with Patient Time attestation: Total time spent providing and/or coordinating discharge services: Time spent: Greater than 30 minutes Exam Narrative: AF HR 61 RR 16 Spo2 98 BP 133/51 General: female in no acute respiratory distress who is nontoxic appearing, lying semi recumbent in bed. HEENT: Normocephalic. Atraumatic. Extraocular movement intact. Sclera clear and anicteric. No facial asymmetry. Chest: Lungs are clear to auscultation bilaterally. No wheezes or crackles. CV: Heart was regular rate and rhythm. S1-S2. No murmurs, gallops, or rubs. Abd: Abdomen was soft. Nontender. Nondistended. Positive bowel sounds. No organomegaly or masses. Ext: No clubbing, cyanosis, or edema. 2+ DP pulses bilaterally. Neuro: Patient is alert and oriented x3. Cranial nerves 2-12 are intact. Speech is clear. DS: Data Data Completed and Pending Completed studies during hospitalization: Abdomen x-ray abdomen x-ray chest abdomen pelvis CT Discharge Plan Discharge Attending physician on discharge: Henry Lopez Consulting providers: Prachi Krueger Discharging Clinician: Sydney Ernst Anticipated Discharge Date/Time: 06/09/24 14:12 Patient Disposition: [place] [facility] Activity: october shower Diet: regular and heart healthy Discharge Instructions: Discharge disposition: Patient was admitted to the hospital for back pain, diagnosed with a T9 burst fracture Neurosurgery consulted, no acute intervention required Continue to wear the TLSO brace with ambulation Work with PT/OT Please take norco (with food) if your pain is sever, otherwise, take muscle relaxant and use lidocaine patch. Attached is information on these medications. Per Care Coordination: Outpatient physical and occupational therapy ok to evaluate and treat at [facility]. Patient became constipated during admission and was diagnosed with an adynamic ileus She has since regained bowel function Continue bowel regimen Miralax as prescribed, attached is information on this medication Also started on simethicone for gas pains, attached is information on this medication Monitor blood pressures Take caution while standing, rising, or moving Change positions slowly taking a break between each position change If you standing feel dizzy sit back down and take a break Strict bleeding precautions since you remain on eliquis including shaving with an electric razor, holding pressure for greater than 20 minutes for injury, protection of had with any falls, etc. Encouraged to continue with yearly vaccinations Return to the emergency department if he developed sudden shortness of breath, chest pain, nausea, vomiting, upset stomach or intractable diarrhea Return to the emergency department if you develop fever greater than 101.5 Return to the emergency department if you develop incontinence- urine or bowel, increased numbness/tingling/, and/or pain that is not longer controlled with medication. Follow-up with the primary care physician within 1 weeks Thank you for [facility] for your healthcare needs Patient Instructions: Hydrocodone/Acetaminophen (By mouth), Simethicone (By mouth), Lidocaine (On the skin), Polyethylene Glycol 3350 (By mouth), Apixaban (By mouth), Vertebral Compression Fracture (DC), Thoracolumbosacral Orthosis (DC) Patient Language: Czech Follow-up/Referrals: Cristian Ling MD [Primary Care Provider] - 1 Week Discharge Medications: New hydrocodone-acetaminophen 5-325 mg Tablet 1 tablet PO Q6H PRN (Reason: Pain Rated 4-10) Qty: 12 0RF methocarbamol 500 mg tablet 750 mg PO Q6H PRN (Reason: back pain) Qty: 30 0RF lidocaine 5 % adhesive patch,medicated 1 patch topical DAILY Qty: 30 0RF Rx Instructions: leave on most painful area for up to 12 hrs polyethylene glycol 3350 [Miralax] 17 gram/dose powder 17 g PO DAILY 4 Days Qty: 68 0RF simethicone 80 mg tablet,chewable 80 mg PO DAILY PRN (Reason: abdominal distention) Qty: 14 0RF Continued acetaminophen [Tylenol Extra Strength] 500 mg Tablet 1,000 mg PO Q6H PRN (Reason: Pain (Scale Score 1-3)) amiodarone 200 mg Tablet 400 mg PO DAILY bisacodyl [Dulcolax (bisacodyl)] 10 mg Suppository 10 mg RECTAL DAILY PRN (Reason: Constipation) pantoprazole 40 mg Tablet,Delayed Release (Dr/Ec) 40 mg PO QAM sertraline 50 mg Tablet 50 mg PO DAILY calcium carbonate-vitamin D3 [Oyster Shell Calcium-Vit D3] 500 mg-5 mcg (200 unit) Tablet 1 tablet PO DAILY atorvastatin 80 mg tablet 80 mg PO HS Eliquis 5 mg Tablet 5 mg PO Q12HR Qty: 60 0RF midodrine 2.5 mg Tablet 5 mg PO TID Qty: 90 0RF loperamide 2 mg capsule 2 mg PO DAILY PRN (Reason: loose stool) Rx Instructions: take 1 capsule after each loose stool as needed for diarrhea. Max Dose of 8 caps per day metoprolol succinate 25 mg tablet extended release 24 hr 25 mg PO DAILY ondansetron 4 mg tablet,disintegrating 4 mg PO Q8H PRN (Reason: nausea and vomiting) alendronate 70 mg tablet 70 mg PO WEEKLY Qty: 13 2RF Rx Instructions: Every Friday ezetimibe 10 mg tablet 10 mg PO DAILY Qty: 30 5RF Linzess 145 mcg capsule 145 mcg PO DAILY PRN (Reason: Constipation) Qty: 90 0RF Date of admission: 06/05/24 07:01 Primary Care Provider: Cristian Ling Admitting Provider: Shirley Newsome Attending physician on admission: Sydney Ernst Condition: Stable Hospitalist MIPS Heart Failure (Exclusion) Patient has history of Heart Transplant or Left Ventricular Assistive Device?: No IF YES, STOP HERE Heart Failure (Qualifier) Patient has current or prior documentation of LVEF less than or equal to 40%, or mod/servere depressed LVSF?: No IF NO, STOP HERE
--- OUTSIDE RECORDS SUMMARY | 2024-06-12 03:52 | XMS_ITS | Encounter Summary ---
Author Organization [facility] Address [address] [place] [address] Phone Care Team Providers Care [employer] Name Role Phone Cristian Ling MD Primary Care Prov ider Encounter Details Date Type Department Care Team (Late st Contact Info) Description 03/10/2024 Telephone [facility] Cardiology [address] [facility] [address]th [place] [address] [place] [address] Sami Stafford MD [address] [facility] [address] [place] [address] Social History Tobacco Use Types Packs/Day Years Used Date Smoking Tobacco: Never Passive Smoke Exposure: Current Smokeless Tobacco: Never [facility] Utilities Answer Date Recorded In the past 12 months has [employer], gas, oil, or water [employer] threatened to shut off services in your home? No 12/04/2023 Humiliation, Afraid, Rape, and Kick questionnair e Answer Date Recorded Within the last year, have y ou been afraid of your partner or ex-partner? No 11/25/2023 Within the last year, have y ou been humiliated or emotionally abused in other ways by your partner or ex-partner? No Within the last year, have y ou been kicked, hit, slapped, or otherwise physically hurt by your partner or ex-partner? No 11/25/2023 Within the last year, have y ou been raped or forced to have any kind of sexual activity by your partner or ex-partner? No 11/25/2023 Social Connection and Isolation Panel [NHANES] A nswer Date Recorded In a typical week, how many times do you talk on the phone with family, friends, or neighbors? Twice a week 12/04/2023 How often do you get together with friends or re latives? Once a week 12/04/2023 How often do you attend sikh or worship serv ices? Never 12/04/2023 Do you belong to any clubs o r organizations such as sikh groups, unions, fraternal or athletic groups, or school groups? No 12/04/2023 How often do you attend meet ings of the clubs or organizations you belong to? Never 12/04/2023 Are you , , di vorced, , never , or living with a partner? 12/04/2023 AUDIT-C Answer Date Recorded Q1: How often do you have a drink containing alcohol? Never 01/12/2024 Q2: How many drinks containi ng alcohol do you have on a typical day when you are drinking? Patient does not drink Q3: How often do you have si x or more drinks on one occasion? Never 01/12/2024 Overall Financial Resource Strain (CARDIA) Answe r Date Recorded How hard is it for you to pa y for the very basics like food, housing, medical care, and heating? Not very hard 12/04/2023 PHQ-2 Answer Date Recorded PHQ-2 Total Score (If total score is 3 or more points, staff should administer the PHQ-9) 0 09/28/2020 [facility] - Occupational Stress Questionnaire Answer Date Recorded Do you feel stress - tense, restless, nervous, or anxious, or unable to sleep at night because your mind is troubled all the time - these days? Not at all 11/25/2023 Exercise Vital Sign Answer Date Recorde d On average, how many days pe r week do you engage in moderate to strenuous exercise (like a brisk walk)? 7 days 11/25/2023 On average, how many minutes do you engage in exercise at this level? 20 min 11/25/2023 Hunger Vital Sign Answer Date Recorded Within the past 12 months, y ou worried that your food would run out before you got the money to buy more. Never true 12/04/19 24 Within the past 12 months, t he food you bought just didn't last and you didn't have money to get more. Never true 12/04/2023 PRAPARE - Transportation Answer Date Re corded In the past 12 months, has l ack of transportation kept you from medical appointments or from getting medications? No 11/15 In the past 12 months, has l ack of transportation kept you from meetings, work, or from getting things needed for daily living? No 12/04/2023 Housing Stability Vital Sign Answer Wale e Recorded In the last 12 months, was t here a time when you were not able to pay the mortgage or rent on time? No 12/04/2023 In the past 12 months, how m any times have you moved where you were living? 0 12/04/2023 At any time in the past 12 m [facility], were you homeless or living in a fpc (including now)? No 12/04/2023 Personal Safety Answer Date Recorded Have you ever been in or are you currently in a harmful physical or emotional relationship or is someone making you feel afraid or unsafe? Denies 01/12/2024 Comments No Sex and Gender Information Value Date Recorded Sex Assigned at Not on file Legal Sex Female 7:12 AM [employer] Gender Identity Female 02/07/2021 4:33 PM CDT Sexual Orientation Straight 02/07/2021 4: 33 PM CDT documented as of this encounter Miscellaneous Notes * Telephone Encounter - Sheila Solomon RN - 03/10/2024 12:59 PM CDT LMOR for pt to return call. * Telephone Encounter - Mary Jarquin - 03/10/2024 10:04 AM CDT Rivera Pt wants to discuss getting a flu shot with the nurse. She wants to know if they are all the same??Pls call. documented in this encounter Plan of Treatment Not on file documented as of this encounter Visit Diagnoses Not on filedocumented in this encounter Care Teams [employer] Relationship Specialty Start Date End Date Cristian Ling MD [address] [place] [address] PCP - General 10/16/16 documented as of this encounter
--- OUTSIDE RECORDS SUMMARY | 2024-06-12 03:52 | XMS_ITS | Clinical Summary ---
Author Organization [facility] Address [facility] [place] [address] Care Team Providers Care Steam Turbine Assembler Name Role Phone Cristian Ling MD Primary Care Prov ider Allergies Active Allergy Reactions Criticality Noted Date Comments Codeine Hives,Shortness of breath High 01/15/2021 Latex Itching Low 11/06/2015 Milk Nausea & Vomiting Low 03/14/2023 Tramadol Shortness of breath,Unknown High 12/11/19 18 Medications alendronate (FOSAMAX) 70 mg tablet TAKE 1 TABLET BY MOUTH ONE TIME PER WEEK 0 9 Active ezetimibe (ZETIA) 10 mg tablet TAKE 1 TABLET BY MOUTH EVERY DAY 90 tablet 3 2 Active metoprolol XL (TOPROL-XL) 25 mg extended release tabletIndications :Paroxysmal atrial fibrillation with RVR (HCC) Take 1 tablet (25 mg total) by mouth daily 30 tablet 11 3 Active apixaban (Eliquis) 5 mg tabletIndications :atrial fibrillation Take 1 tablet (5 mg total) by mouth 2 (two) times a day 60 tablet 3 Active atorvastatin (LIPITOR) 80 mg tablet Take 1 tablet (80 mg total) by mouth nightly 30 tablet 11 3 Active calcium carbonate-vitamin D3 1,250mg (500mg elemental) - 5 mcg (200 units) per tablet Take 1 tablet by mouth daily 30 tablet 11 3 Active linaCLOtide (Linzess) 145 mcg capsuleIndication s:Constipation Predominant Irritable Bowel Syndrome Take 1 capsule (145 mcg total) by mouth daily before breakfast 30 capsule 3 Active diclofenac sodium (VOLTAREN) 1 % gel Apply 2 g topically 3 (three) times a day 20 [address] (PROTONIX) 40 mg EC tabletIndications :Treatment of Non-Bleeding Gastric Disorder Take 1 tablet (40 mg total) by mouth daily 30 tablet 11 3 Active ondansetron (ZOFRAN) 4 mg tablet Take 1 tablet (4 mg total) by mouth every 8 (eight) hours as needed for nausea or vomiting Active midodrine (PROAMATINE) 5 mg tabletIndications :Symptomatic Orthostatic Hypotension Take 1 tablet (5 mg total) by mouth 3 (three) times a day 90 tablet 11 4 Active prochlorperazine (COMPAZINE) 5 mg tablet Take 1 tablet (5 mg total) by mouth every 6 (six) hours as needed for nausea or vomiting 10 tablet 4 Active loperamide (IMODIUM) 2 mg capsule Take 1 capsule orally as needed after each loose stool. (Do not exceed 8 capsules/day) 20 capsule 4 Active amiodarone (PACERONE) 200 mg tablet TAKE 1 TABLET BY MOUTH ONCE DAILY 30 tablet 4 Active acetaminophen (TYLENOL) 500 mg tablet Take 1 tablet (500 mg total) by mouth 3 (three) times a day 4 Active sertraline (ZOLOFT) 50 mg tablet Take 1 tablet (50 mg total) by mouth daily 4 Active Active Problems Problem Noted Date Diagnosed Date Facial abscess 12/07/2023 History of biliary duct stent placement 12/04/19 24 Hematoma of right lower leg 11/29/2023 Assessment & Plan (11/29/2023 1:02 PM CDT): Patient with swelling and pain of R leg, which began after a fall on 11/15. Went to PCP who was concerned for cellulitis and prescribed abx. While in ED, swelling increasing. US obtained showing hematoma. XR without acute fracture or osteomyelitis. Trauma Surgery consulted and recommended non-op management. - Jose bandages for moderate compression Chronic kidney disease (CKD), stage III (moderat e) 11/29/2023 Assessment & Plan (12/01/2023 12:55 PM CDT): Cr 1.18 (bl 1.2-1.4). - monitor BMP, Scr improved, 0.88. Pancreatitis 11/29/2023 Assessment & Plan (12/03/2023 5:30 PM CDT): Post -procedural pancreatitis with Lipase>1000, epigastric tenderness. - Improving, CLD -IVF with LR -Serial exams and monitor for infection. Biliary aware on 11/28. - Tolerating diet well - Denies pain or nausea today Acute hepatitis 11/24/2023 Assessment & Plan (12/01/2023 12:48 PM CDT): On presentation here with substantial elevation in LFTs, in hepatocellular pattern with normal Tbili. Of note her LFTs were also elevated/uptrending in August and September of this year. - Noted to have CBD stones, s/p EUE/ERCP on 11/25 ,as noted above. - LFTS down trending slowly. Plan out pt f/u after d/c. Choledocholithiasis 11/24/2023 Assessment & Plan (12/03/2023 5:30 PM CDT): - GI/Biliary seen , noted imaging studies. -Underwent ERCP on 11/25 , EUS suggested stone but ERCP itself revealed only sludge visible; biliary sphincterotomy was performed and one coated metal stent placed. Needs f/u ERCP in 6-8 weeks for stent removal . -Pt developed post prandial pain on 11/28/23 and lipase demonstrated an elevation of 1100. She was made NPO and started on IVF. Clinically better with minimal pain, plan on CLD. GI ( Biliary) notified on 11/28. - Advance diet to regular ( low fat) on 11/29 and watch. - GI will arrange out pt f/u ERCP. Iron deficiency anemia, unspecified 10/05/2023 Assessment & Plan (12/01/2023 12:47 PM CDT): Follows with [facility] Hematology. Anemia thought to be due to iron deficiency as well as CKD stage IIIb. Received iron infusion in 09/2023. On admission hgb 8.4 (bl 7- 9). Iron 72, ferritin 1715. - Stable H/H, last 8.5 NSVT (nonsustained ventricular tachycardia) 11/2023 A-fib (CMS/HCC) 02/17/2023 Assessment & Plan (12/01/2023 12:47 PM CDT): Follows with [facility] Cardiology. History of afib with difficulty with rate control requiring cardioversion. Home regimen: amiodarone 200mg daily, metoprolol XL 25mg daily, eliquis 5mg BID. - continue home amiodarone 200mg daily - continue home metoprolol XL 25mg daily - restarted eliquis 5mg BID Atrial fibrillation (CMS/HCC) 01/13/2023 Apical variant hypertrophic cardiomyopathy 12/05 Assessment & Plan (11/29/2023 1:05 PM CDT): - continue home metoprolol XL 25mg daily Paroxysmal atrial fibrillation (CMS/HCC) 023 Right hip pain 11/22/2021 Assessment & Plan (11/27/2021 5:27 PM CDT): Ms. Lobato has right hip pain with an antalgic gait favoring her right hip, a positive WARREN maneuver on the right that reproduces her symptoms, and history that is consistent with right hip disease. Right AP and frog lateral hip films show advanced degenerative arthritic changes of the right hip joint. We will refer her to physiatry for formal evaluation of the hip and possible injections. I plan to see her back in 6 months for re-evaluation. She is aware that with her osteoporosis, she is not a surgical candidate for any decompression or fusion of the lumbar spine. Other osteoporosis without current pathological fracture 03/07/2021 Overview (03/07/2021): Ms. Lobato has lumbar stenosis in the setting of significant osteoporosis. Lumbar stenosis with neurogenic claudication Assessment & Plan (01/30/2021 1:03 PM CDT): Ms. Lobato has severe lumbar stenosis at L4-5 with symptoms of neurogenic claudication. Her x-rays do not show any signs of instability. She still has to get her DEXA scan. We discussed that with ever the lowest number is on the scan, this likely represents her true bone density. Depending on the results, she would either be a surgical candidate, not a surgical candidate or would be a surgical candidate that would require optimization prior to surgery. We will discuss the results with her once they are available. She reports that she significantly helps her who is disabled. She reports that she gets some out of bed, performs most of his daily activities and has to help home on chairs or toilet. We discussed that she will not be able to do these significant activities after lumbar spine surgery for 3 to 4 months and would require home health or other healthcare worker to help with her . Assessment & Plan (09/29/2020 9:10 AM CDT): Ms. Lobato has lumbar stenosis with neurogenic claudication. This is worst focally at the L4-5 level. She has different degrees of stenosis at other levels, which is likely asymptomatic. We will get a DEXA scan to evaluate her bone density to see if she is a surgical candidate. In the meantime she will undergo some injections of her lumbar spine which may give her long-term relief. I plan to see her back in 3 months time with flexion-extension lumbar spine films at that time. History of MT (myocardial infarction) 12/10/2017 Overview (12/10/2017): 2012 Primary hypertension 11/06/2012 Coronary artery disease invo lving cahuilla coronary artery of [place]ahu[place] heart without angina pectoris 09/23/2012 Hx of CABG 09/23/2012 Assessment & Plan (11/29/2023 1:03 PM CDT): - continue home metoprolol XL 25mg daily - continue home atorvastatin 80mg daily - continue home zetia Encounters Date Type Department Care Team Description 04/01/2024 Telephone [facility] Orthopaedic Surgery [address] [facility] [address] [place] [address] Harpreet RosenbergRONNY 03/17/2024 8:38 AM CDT - 03/17/2024 11:59 PM CDT Hospital Encounter [facility] Radiology [address] [facility] [address] [place] [address] Jamari Rodríguez MD Right hip pain; Primary osteoarthritis of right hip Discharge Disposition: Discharge to home or self care from Last 3 Months Immunizations Name Administration Dates Next Due Moderna SARS-CoV-2 Monovalent Vaccination (12+ Y RS) 09/06/2020,08/09/2020 Surgical History Surgery Date Site/Laterality Comments CORONARY ARTERY BYPASS GRAFT 06/16/2012 - 06/15/2013 Double by-pass - [facility] COLON SURGERY 06/16/1992 - 06/15/1993 Repair burst colon MICRODISCECTOMY 06/16/1998 - 06/15/1999 Dr. James ([place], [place]) TOTAL KNEE ARTHROPLASTY 06/16/2017 - 06/15/2018 Right FLUORO GUIDED INJECTION HIP RIGHT 05/16/2022 Right FLUORO GUIDED INJECTION HIP RIGHT 08/15/2022 Right FLUORO GUIDED INJECTION HIP RIGHT 12/10/2022 Right CARDIOVERSION 03/16/2023 - 04/15/2023 FLUORO GUIDED INJECTION HIP RIGHT 05/13/2023 Right FLUORO GUIDED INJECTION HIP RIGHT 03/17/2024 Right Medical History Medical History Date Comments Vertigo History of MT (myocardial infarction) 2012 Heart murmur High cholesterol HTN (hypertension) Acid reflux IBS (irritable bowel syndrome) History of blood clots 1960s in leg as teenager - had phlebitis History of vertebral fracture 2018 Family History Medical History Relation Name Comments Hypertension Child Son Stroke Child Son Prostate cancer Father Relation Name Status Comments Child Son Father Social History Tobacco Use Types Packs/Day Years Used Date Smoking Tobacco: Never Passive Smoke Exposure: Current Smokeless Tobacco: Never Tobacco Cessation:Counseling Given: Not Answered [facility] Utilities Answer Date Recorded In the past 12 months has th e electric, gas, oil, or water company threatened to shut off services in your [...] week 12/04/2023 How often do you attend sabianist or sikh serv ices? Never 12/04/2023 Do you belong to any clubs o r organizations such as sabianist groups, unions, fraternal or athletic groups, or [...] staff should administer the PHQ-9) 0 09/28/2020 [facility] - Occupational Stress Questionnaire Answer Date Recorded [...] any time in the past 12 m [facility], were you homeless or living in a chcf (including now)? No 12/04/2023 Personal Safety Answer Date Recorded Have you ever been in or are you currently in a harmful physical or emotional relationship or is someone making you feel afraid or unsafe? 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 Gender Identity Female 02/07/2021 4:33 PM CDT Sexual Orientation Straight 02/07/2021 4: 33 PM CDT Obstetrics History Last Filed Vital Signs Vital Sign Reading Time Taken Comments Blood Pressure 149/70 01/12/2024 11:40 AM CDT Pulse 54 01/12/2024 11:40 AM CDT Temperature 36 ??C (96.8 ??F) 01/12/2024 10:50 AM CDT Respiratory Rate 12 01/12/2024 11:40 AM CDT Oxygen Saturation 99% 01/12/2024 11:40 AM CDT Inhaled Oxygen Concentration - - Weight 65.3 kg (144 lb) 01/12/2024 10:10 AM CDT Height 162.6 cm (5' 4 ) 01/12/2024 10:10 AM CDT Body Mass Index 24.72 01/12/2024 10:10 AM CDT Plan of Treatment Health Maintenance Due Date Last Done Comments Osteoporosis Screening-Bone Density Scan 1945 Pneumococcal vaccine 65+ (1 of 2 - PCV) 1952 DTaP/Tdap/Td Vaccine (1 - Tdap) 1957 Hepatitis B Screening 1964 Zoster Vaccine (1 of 2) 1996 Well Visit 65+ 2011 Depression Screening 09/28/2021 09/28/2020, 09/29/19 Covid-19 Vaccine ( season) 2024, 08/09/2020 Influenza Vaccine (#1) 2024 Fall Risk Assessment 01/11/2025 01/12/2024 Hepatitis C Screening Completed 11/24/2023 Medical Devices Implanted Type Area Hostage Negotiator Device Identifier Shelf Expiration Date Model / Serial / Lot Rt Total Knee Arthroplasty Right: Knee Cataract-Lens Implant Eye Mangia Viabil 10 Mm X 4cm Shortwire [id number] - [id number] - [id number] Implanted:Qty: 1 on 11/26/2023 by Heydi Fenton MD at [facility] Mangia 06/01/2026 [id number] / [id number] / Procedures Procedure Name Priority Date/Time Associated Diagnosis Comments FLUORO GUIDED INJECTION HIP RIGHT Schedule Routine, Read Routine (OP Routine) 03/17/2024 9:23 AM CDT Right hip pain Primary osteoarthritis of right hip HEPATITIS PANEL, ACUTE STAT 11/24/2023 12:01 PM CDT from Last 3 Months or Most Recently Relevant to Health Maintenance Results * FL Fluoro Guided Injection Hip Right (03/17/2024 9:23 AM CDT) Narrative [id number] - 03/17/2024 9:25 AM CDT The images from this study are not interpreted by Radiology. ??Please refer to the physician's procedure / OR operative note. us Jamari Rodríguez MD IMG FLUOROSCOPY PROCEDURES Final Result Performing Organization Address City/[facility]/ZIP Co de Phone Number [email or web address] * Hepatitis panel, acute Blood (11/24/2023 12:01 PM CDT) Hep A IgM Nonreactive Nonreactive Hep B core IgM Nonreactive Nonreactive [facility] Hep C Ab Nonreactive [facility] Comment:Antibodies to HCV no t detected. Does NOT exclude the possibility of recent exposure to HCV. Current interpretive data was last revised on 22 HepBsAg Nonreactive Nonreactive [facility] Blood 11/24/2023 12:0 1 PM CDT 11/24/2023 12:20 PM CDT us Kassidy Cunningham MD LAB MICROBIOLOGY - G ENERAL ORDERABLES Final Result Performing Organization Address [facility] de Phone Number [facility] Department [place] [address] from Last 3 Months or Most Recently Relevant to Health Maintenance Insurance [facility] IDPA [facility] Member Subscriber Plan / Payer (Ef fective 2017-Present) Name:Tiera Lobato Relation to Subscriber:Self Name:Tiera Lobato Payer ID:[id number] (NAIC) Type:MEDICARE RISK OTHER Address: [address] [place] [id number] IDIA [facility] Member Subscriber Plan / Payer (Ef fective 2021-Present) Name:Tiera Lobato Relation to Subscriber:Self Name:Tiera Lobato Payer ID:[id number] (NAIC) Type:MEDICARE RISK OTHER Address: [address] [place] [id number] IDPA [facility] Advance Directives For more information, please contact: [phone] * Full Code (Latest Code Status on File) Date Activated Date Inactivated Comments 01/12/2024 9:55 AM 01/12/2024 3:53 PM * Full Code Date Activated Date Inactivated Comments 11/26/2023 1:02 PM 12/03/2023 7:36 PM * Full Code Date Activated Date Inactivated Comments 11/25/2023 6:29 PM 11/26/2023 1:02 PM * Full Code Date Activated Date Inactivated Comments 02/17/2023 5:25 PM 03/21/2023 7:10 PM Care Teams Steam Turbine Assembler Relationship Specialty Start Date End Date Cristian Ling MD [address] [place] [address] PCP - General 10/16/16
--- OUTSIDE RECORDS SUMMARY | 2024-06-12 03:52 | XMS_ITS | Encounter Summary ---
Author Organization [facility] Address [address] [place] [address] Phone Care Team Providers Care Twisting Department End Finder Name Role Phone Cristian Ling MD Primary Care Prov ider Encounter Details Date Type Department Care Team (Late st Contact Info) Description 03/09/2024 Telephone [facility] Orthopaedic Surgery [address] [facility] [facility] [address] [place] [address] Vidya Grace LPN Social History Tobacco Use Types Packs/Day Years Used Date Smoking Tobacco: Never Passive Smoke Exposure: Current Smokeless Tobacco: Never [facility] Utilities Answer Date Recorded In the past 12 months has [facility] electric, gas, oil, or water company threatened [...] week 12/04/2023 How often do you attend buddhism or anabaptist serv ices? Never 12/04/2023 Do you belong to any clubs o r organizations such as buddhism groups, unions, fraternal or athletic groups, or [...] staff should administer the PHQ-9) 0 09/28/2020 [facility] - Occupational Stress [...] money to buy more. Never true 12/04/19 Within the past 12 months, t he [...] any time in the past 12 m [place], were you homeless or living in a prison (including now)? No 12/04/2023 Personal Safety Answer Date Recorded Have you ever been in or are you currently in a harmful physical or emotional relationship or is someone making you feel afraid or unsafe? 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 Gender Identity Female 02/07/2021 4:33 PM CDT Sexual Orientation Straight 02/07/2021 4: 33 PM CDT documented as of this encounter Miscellaneous Notes * Telephone Encounter - Vidya Grace LPN - 03/09/2024 1:42 PM CDT Returned call to pt to discuss xray results and verify hip injection that's scheduled injection forFriday documented in this encounter Plan of Treatment Not on file documented as of this encounter Visit Diagnoses Not on filedocumented in this encounter Care Teams Twisting Department End Finder Relationship Specialty Start Date End Date Cristian Ling MD [address] [place] [address] PCP - General 10/16/16 documented as of this encounter
--- OUTSIDE RECORDS SUMMARY | 2024-06-12 03:52 | XMS_ITS | Encounter Summary ---
Author Organization [facility] Address [address] [place] [address] Care Team Providers Care Chemistry Professor Name Role Phone Cristian Ling MD Primary Care Prov ider Encounter Details Date Type Department Care Team (Late st Contact Info) Description 03/11/2024 Telephone Radiology - [address] [facility] [address] [place] [address] Carolina Torrez, RT Social History Tobacco Use Types Packs/Day Years Used Date Smoking Tobacco: Never Passive Smoke Exposure: Current Smokeless Tobacco: Never [facility] Utilities Answer Date Recorded In the past 12 months has [facility] electric, gas, oil, or water [employer] threatened to shut off services in your [...] week 12/04/2023 How often do you attend spiritism or anabaptist serv ices? Never 12/04/2023 Do you belong to any clubs o r organizations such as spiritism groups, unions, fraternal or athletic groups, or [...] staff should administer the PHQ-9) 0 09/28/2020 [facility] - Occupational Stress Questionnaire Answer Date Recorded [...] any time in the past 12 m [facility], were you homeless or living in a jail (including now)? No 12/04/2023 Personal Safety Answer Date Recorded Have you ever been in or are you currently in a harmful physical or emotional relationship or is someone making you feel afraid or unsafe? Denies 01/12/2024 Comments No Sex and Gender Information Value Date Recorded Sex Assigned at Not on file Legal Sex Female 7:12 AM COLLECTIONS DIRECTOR Gender Identity Female 02/07/2021 4:33 PM CDT Sexual Orientation Straight 02/07/2021 4: 33 PM CDT documented as of this encounter Miscellaneous Notes * Telephone Encounter - Shan Carolina, RT - 03/11/2024 11:26 AM CDT Remind Patients of our location. [address] [facility], [address] If you have any financial questions please call [phone] (ONLY SHARE THIS IF PATIENT INQUIRES) If you need to cancel or reschedule your appointment please call [phone] Ask them the covid screening questions Have you had any respiratory symptoms including cough, shortness of breath/trouble breathing, fever, sudden loss of taste or smell, sore throat, or body aches? Yes [] No [x] Are you currently being tested for Covid-19? Yes [] No[x] Have you had any contact with a person known to be positive for Covid-19 or a person under investigation? Yes [] No [x] If the patient answers yes to any of the Covid -19 screening questions they need to be rescheduled for at least 14 days later. Inform patient that only 1 guest/visitor will be allowed into the clinic. If possible, come by themselves. Procedure Patients Are you on any blood thinners? Yes [x] No [] Are you currently on any antibiotics? Yes [] No [x] Have you had a fever in the last 7 days? Yes [] No [x] Are you diabetic? Yes [] No [x] In the last 2 weeks have you received any vaccinations including the COVID booster? Yes [] No [x] In the next 2 weeks do you plan on receiving any vaccinations including the COVID booster? Yes [] No [x] If the answer is yes to either question 5 or 6 then please connect the patient with the quality coordinator at [phone]. If a direct number is requested by the patient please give them [phone]. documented in this encounter Plan of Treatment Not on file documented as of this encounter Visit Diagnoses Not on filedocumented in this encounter Care Teams Chemistry Professor Relationship Specialty Start Date End Date Cristian Ling MD [address] [place] [address] PCP - General 10/16/16 documented as of this encounter
--- OUTSIDE RECORDS SUMMARY | 2024-06-12 03:52 | XMS_ITS | Patient Health Record ---
Author Organization [facility] Address [address] [place] [address] Care Team Providers Care Vending Machine Coin Collector Name Role Phone Cristian Pollard Primary Care Provider Unavail able Curtis Gonzalez Unavailable [phone] Maxx Pratt Unavailable Unavailable ALLERGIES Allergen (clinical drug ingredient) Drug/Non Drug Allergy documented on EMR Reaction Allergy Type Onset Date Status codeine Codeine Unknown Drug Allergy Active tramadol Tramadol Unknown Drug Allergy Active REASON FOR REFERRAL No Information MEDICATIONS Medication SIG (Take, Route, Fr equency, Duration) Notes Start Date End Date Status Gabapentin Active Atorvastatin Calcium Active Alendronate Sodium A ctive predniSONE Active Metoprolol Succinate ER Active Diclofenac Sodium Ac tive Sertraline HCl Activ e Lisinopril Active Linzess Active Ezetimibe Active SOCIAL HISTORY Tobacco Use: Social History Observation Description Date Details (start date - stop date) Never Smoker NA - NA Sex Assigned At : Social History Observation Description Sex Assigned At Unknown Tobacco Use/Smoking Question Answer Notes Are you a nonsmoker Alcohol Screen (Audit-C) Question Answer Notes Did you have a drink containing alcohol in the p ast year? Yes Points 0 Interpretation Negative PROBLEMS Problem Type ICD Code Onset Dates Problem Status W/U Status Risk SNOMED Code Notes Problem Fear of injections and transfusions (F40.231) Active confirmed Fear of medical treatment (010993143) Problem Essential (primary) hypertension (I10) Active confirmed Essential hypertension (99375760) Problem Radiculopathy, lumbar region (M54.16) Active confirmed Lumbar radiculopathy (865070021) PLAN OF TREATMENT No Information Insurance Providers Payer Name Payer Address Payer Phone Subscriber Number Group Number Insured Name Patient Relationship to Insured Coverage Start Date Coverage End Date [employer] [address] [place] [id number] Tiera Lobato Self - patient is the insured MEDICAL (GENERAL) HISTORY Medical History History ICD Code high blood pressure heart attack osteoarthtitis headaches irritable bowel syndrome diverticulosis Surgical History Surgery Date(Month/Year) colon burst 1992 back surgery 1998 double bypass 2012 right knee replacement 2017
--- OUTSIDE RECORDS SUMMARY | 2024-06-12 03:52 | XMS_ITS | Encounter Summary ---
Author Organization [facility] Address [address] [place] [address] Phone Care Team Providers Care Fire Sprinkler Installer Name Role Phone Cristian Ling MD Primary Care Prov ider Encounter Details Date Type Department Care Team (Late st Contact Info) Description 04/01/2024 Telephone [facility] Orthopaedic Surgery [address] [facility] [address] Office [address] [place] [address] Harpreet Rosenberg CMA Social History Tobacco Use Types Packs/Day Years Used Date Smoking Tobacco: Never Passive Smoke Exposure: Current Smokeless Tobacco: Never [facility] Utilities Answer Date Recorded In the past 12 months has [facility] electric, gas, oil, or water company threatened [...] week 12/04/2023 How often do you attend lutheran or shinto serv ices? Never 12/04/2023 Do you belong to any clubs o r organizations such as lutheran groups, unions, fraternal or athletic groups, or [...] staff should administer the PHQ-9) 0 09/28/2020 [facility] - Occupational Stress Questionnaire Answer Date [...] any time in the past 12 m onths, were you homeless or living in a alf (including now)? No 12/04/2023 Personal Safety Answer Date Recorded Have you ever been in or are you currently in a harmful physical or emotional relationship or is someone making you feel afraid or unsafe? Denies 01/12/2024 Comments No Sex and Gender Information Value Date Recorded Sex Assigned at Not on file Legal Sex Female 7:12 AM ROSE GROWER Gender Identity Female 02/07/2021 4:33 PM CDT Sexual Orientation Straight 02/07/2021 4: 33 PM CDT documented as of this encounter Miscellaneous Notes * Telephone Encounter - Jamari Rodríguez MD - 04/02/2024 7:06 AM CDT This looks like an excellent short term result. Hopefully pain reduction persists. We discussed potentially consulting with a surgeon as well, and consultation to consider options at any time would be reasonable to consider. * Telephone Encounter - Harpreet Rosenberg CMA - 04/01/2024 1:31 PM CDT You received your injection on Date: 03/16/24 Type of Injection: Right Fluoroscopically-Guided Hip Joint Injection PAIN DIARY STEROID INJECTION (Rate using 0% 25% 50% 80% 100%) Immediately? 20% 6 hours after? 20% 24 hours after? 20% 4 days after? 50% 1 week after? 80% 10 days after? 80% 2 weeks after? 80% documented in this encounter Plan of Treatment Not on file documented as of this encounter Visit Diagnoses Not on filedocumented in this encounter Care Teams Fire Sprinkler Installer Relationship Specialty Start Date End Date Cristian Ling MD [address] [place] [address] PCP - General 10/16/16 documented as of this encounter
--- OUTSIDE RECORDS SUMMARY | 2024-06-12 03:52 | XMS_ITS | Encounter Summary ---
Author Organization [facility] Address [address] [place] [address] Phone Care Team Providers Care Kersey Department Supervisor Name Role Phone Cristian Ling MD Primary Care Prov ider Encounter Details Date Type Department Care Team (Late st Contact Info) Description 03/10/2024 Telephone [facility] Orthopaedic Surgery [address] [place] [address] Vidya Grace LPN Social History Tobacco Use Types Packs/Day Years Used Date Smoking Tobacco: Never Passive Smoke Exposure: Current Smokeless Tobacco: Never [facility] Utilities Answer Date Recorded In the past 12 months has [facility] electric, gas, oil, or water [...] week 12/04/2023 How often do you attend druze or advent serv ices? Never 12/04/2023 Do you belong to any clubs o r organizations such as druze groups, unions, fraternal or athletic groups, or [...] staff should administer the PHQ-9) 0 09/28/2020 [facility] - Occupational [...] were you homeless or living in a custodial (including now)? No 12/04/2023 Personal Safety Answer Date Recorded Have you ever been in or are you currently in a harmful physical or emotional relationship or is someone making you feel afraid or unsafe? Denies 01/12/2024 Comments No Sex and Gender Information Value Date Recorded Sex Assigned at Not on file Legal Sex Female 7:12 AM SENIOR COUNSEL COMMERCIAL Gender Identity Female 02/07/2021 4:33 PM CDT Sexual Orientation Straight 02/07/2021 4: 33 PM CDT documented as of this encounter Miscellaneous Notes * Telephone Encounter - Vidya Grace LPN - 03/10/2024 11:50 AM CDT Pt lvm requesting a printout of something showing Dr Del Rio's recommendation for her scheduled injection. LVM advising pt that she is able to receive a printout of her xray results and Dr Del Rio's recommendation to follow through with her injection as scheduled, Friday when she comes for her injection appointment. documented in this encounter Plan of Treatment Not on file documented as of this encounter Visit Diagnoses Not on filedocumented in this encounter Care Teams Kersey Department Supervisor Relationship Specialty Start Date End Date Cristian Ling MD [address] [place] [address] PCP - General 10/16/16 documented as of this encounter
--- OUTSIDE RECORDS SUMMARY | 2024-06-12 03:52 | XMS_ITS | Encounter Summary ---
Author Organization [facility] Address [address] [place] [address] Care Team Providers Care Elder Counselor Name Role Phone Cristian Ling MD Primary Care Prov ider Encounter Details Date Type Department Care Team (Late st Contact Info) Description 03/08/2024 Telephone Radiology - [address] [facility] [address] [place] [address] Carolina Torrez, RT Social History Tobacco Use Types Packs/Day Years Used Date Smoking Tobacco: Never Passive Smoke Exposure: Current Smokeless Tobacco: Never [facility] Utilities Answer Date Recorded In the past 12 months has [facility] electric, gas, oil, or water [employer] threatened to shut off services in your [...] How often do you attend sabianist or taoist serv ices? Never 12/04/2023 Do you belong [...] staff should administer the PHQ-9) 0 09/28/2020 [facility] - Occupational Stress Questionnaire Answer [...] any time in the past 12 m [facility], were you homeless or living in a detention (including now)? No 12/04/2023 Personal Safety Answer Date Recorded Have you ever been in or are you currently in a harmful physical or emotional relationship or is someone making you feel afraid or unsafe? Denies 01/12/2024 Comments No Sex and Gender Information Value Date Recorded Sex Assigned at Not on file Legal Sex Female 7:12 AM PROJECT BUYER Gender Identity Female 02/07/2021 4:33 PM CDT Sexual Orientation Straight 02/07/2021 4: 33 PM CDT documented as of this encounter Miscellaneous Notes * Telephone Encounter - Carolina Torrez, RT - 03/08/2024 2:03 PM CDT Remind Patients of our location. [address] [facility] [address] If you have any financial questions please call [phone] (ONLY SHARE THIS IF PATIENT INQUIRES) If you need to cancel or reschedule your appointment please call [phone] Ask them the covid screening questions Have you had any respiratory symptoms including cough, shortness of breath/trouble breathing, fever, sudden loss of taste or smell, sore throat, or body aches? Yes [] No [] Are you currently being tested for Covid-19? Yes [] No[] Have you had any contact with a person known to be positive for Covid-19 or a person under investigation? Yes [] No [] If the patient answers yes to any of the Covid -19 screening questions they need to be rescheduled for at least 14 days later. Inform patient that only 1 guest/visitor will be allowed into the clinic. If possible, come by themselves. Procedure Patients Are you on any blood thinners? Yes [] No [] Are you currently on any antibiotics? Yes [] No [] Have you had a fever in the last 7 days? Yes [] No [] Are you diabetic? Yes [] No [] In the last 2 weeks have you received any vaccinations including the COVID booster? Yes [] No [] In the next 2 weeks do you plan on receiving any vaccinations including the COVID booster? Yes [] No [] If the answer is yes to either question 5 or 6 then please connect the patient with the hearing screen coordinator at [phone]. If a direct number is requested by the patient please give them [phone]. * Telephone Encounter - Carolina Torrez RT - 03/08/2024 2:00 PM CDT Remind Patients of our location. [facility] [facility] [facility], [address] If you have any financial questions please call [phone] (ONLY SHARE THIS IF PATIENT INQUIRES) If you need to cancel or reschedule your appointment please call [phone] Ask them the covid screening questions Have you had any respiratory symptoms including cough, shortness of breath/trouble breathing, fever, sudden loss of taste or smell, sore throat, or body aches? Yes [] No [] Are you currently being tested for Covid-19? Yes [] No[] Have you had any contact with a person known to be positive for Covid-19 or a person under investigation? Yes [] No [] If the patient answers yes to any of the Covid -19 screening questions they need to be rescheduled for at least 14 days later. Inform patient that only 1 guest/visitor will be allowed into the clinic. If possible, come by themselves. Procedure Patients Are you on any blood thinners? Yes [] No [] Are you currently on any antibiotics? Yes [] No [] Have you had a fever in the last 7 days? Yes [] No [] Are you diabetic? Yes [] No [] In the last 2 weeks have you received any vaccinations including the COVID booster? Yes [] No [] In the next 2 weeks do you plan on receiving any vaccinations including the COVID booster? Yes [] No [] If the answer is yes to either question 5 or 6 then please connect the patient with the hearing screen coordinator at [phone]. If a direct number is requested by the patient please give them [phone]. documented in this encounter Plan of Treatment Not on file documented as of this encounter Visit Diagnoses Not on filedocumented in this encounter Care Teams Elder Counselor Relationship Specialty Start Date End Date Cristian Ling MD [address] [place] [address] PCP - General 10/16/16 documented as of this encounter
--- OUTSIDE RECORDS SUMMARY | 2024-06-12 03:52 | XMS_ITS | Encounter Summary ---
Author Organization [facility] Address [address] [place] [address] Care Team Providers Care Flight Mechanic Name Role Phone Cristian Ling MD Primary Care Prov ider Reason for Referral * Diagnostic Imaging (Routine) - Closed Specialty Diagnoses / Procedures Referred By Contac t Referred To Contact Diagnoses Right hip pain Primary osteoarthritis of right hip Procedures [place] Fluoro Guided Injection Hip Right Jamari Briseno MD [address] [place] [address] Phone: tel: fax: [address] [address] Referral ID Status Reason Start Date Expiration Date Visits Re quested Visits Authorized [id number] Closed 02/23/2024 03/24/2025 1 1 Reason for Visit * Diagnostic Imaging (Routine) - Closed Specialty Diagnoses / Procedures Referred By Contac t Referred To Contact Diagnoses Right hip pain Primary osteoarthritis of right hip Procedures FL Fluoro Guided Injection Hip Right Jamari Briseno MD [address] [place] [address] Phone: tel: fax: [address] [address] Referral ID Status Reason Start Date Expiration Date Visits Re quested Visits Authorized [id number] Closed 02/23/2024 03/24/2025 1 1 Encounter Details Date Type Department Care Team (Latest Contact Info) Description 03/17/2024 8:38 AM CDT - 03/17/2024 11:59 PM CDT Hospital Encounter [id number] Radiology [address] [facility] [address] [place] [address] Jamari Briseno MD [address] [place] [address] Right hip pain; Primary osteoarthritis of right hip Discharge Disposition: Discharge to home or self care Social History Tobacco Use Types Packs/Day Years Used Date Smoking Tobacco: Never Passive Smoke Exposure: Current Smokeless Tobacco: Never [facility] [employer] Answer Date Recorded In the past 12 months has e electric, gas, oil, or water [employer] threatened to shut off services in your [...] week 12/04/2023 How often do you attend taoist or quaker serv ices? Never 12/04/2023 Do you belong to any clubs o r organizations such as taoist groups, unions, fraternal or athletic groups, or [...] staff should administer the PHQ-9) 0 09/28/2020 [facility] - Occupational Stress Questionnaire Answer Date [...] any time in the past 12 m [facility], were you homeless or living in a penitentiary (including now)? No 12/04/2023 Personal Safety Answer Date Recorded Have you ever been in or are you currently in a harmful physical or emotional relationship or is someone making you feel afraid or unsafe? 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 The numbing medicine usually lasts for 4-6 hours. Triamcinolone/Kenalog (steroid medicine for inflammation and pain). The steroid will typically start working within the next several days but can take up to two weeks for the full effect. When you get home: Resume your normal diet For soreness, you may place an ice pack once an hour at the injection site for 15-20 minutes as needed You may shower To prevent infection, do not take a bath, swim or sit in a Jacuzzi or hot tub for the next two days Drink plenty of fluids to decrease a chance of a headache associated with steroids You may resume your physical therapy appointments in 24 hours Do not exercise for 24 hours, regular day-to-day activities are OK to perform Diabetic patients: Steroid injections may lead to higher blood glucose (sugar) levels temporarily. Most commonly, the higher levels will return to normal within 1-3 days, though effects may last longer. Rises in blood glucose levels may be more significant in patients with poorly controlled type 2 diabetes (those with HbA1c levels greater than 7) and those with type 1 diabetes. Check fasting (correspondence representative prior to first meal of the day) and post-prandial (following meals) blood glucose levels. Contact the physician who manages your diabetes if your blood sugar is significantly elevated (for example, over 100mg/dL higher than your pre- injection level) or if blood sugar levels remain significantly elevated 2 days after receiving the injection, to discuss whether a change in medication dosing is needed. For urgent concerns after hours, call our exchange at [phone]. For all other questions regarding the procedure, please call our office at [phone]. Pain Diary Please fill out the pain diary chart below and message via [employer] call or call the medical provider who requested the injection, Dr. Briseno, in two weeks. By how much has your pain improved after your injection? NOT IMPROVED IMPROVED A LITTLE IMPROVED A LITTLE MORE IMPROVED A LOT NO PAIN Immediately? 0% 20% 50% 80% 100% 6 hours after? 0% 20% 50% 80% 100% 24 hours after? 0% 20% 50% 80% 100% 4 days after? 0% 20% 50% 80% 100% 1 week after? 0% 20% 50% 80% 100% 10 days after? 0% 20% 50% 80% 100% 2 weeks after? 0% 20% 50% 80% 100% documented in this encounter Medications at Time of Discharge acetaminophen (TYLENOL) 500 mg tablet Take 1 tablet (500 mg total) by mouth 3 (three) times a day 02/13/2024 alendronate (FOSAMAX) 70 mg tablet TAKE 1 TABLET BY MOUTH ONE TIME PER WEEK 0 11/09/2018 amiodarone (PACERONE) 200 mg tablet TAKE 1 TABLET BY MOUTH ONCE DAILY 30 tablet 01/20/2024 atorvastatin (LIPITOR) 80 mg tablet Take 1 tablet (80 mg total) by mouth nightly 30 tablet 11 03/21/2023 calcium carbonate-vitamin D3 1,250mg (500mg elemental) - 5 mcg (200 units) per tablet Take 1 tablet by mouth daily 30 tablet 11 03/21/2023 diclofenac sodium (VOLTAREN) 1 % gel Apply 2 g topically 3 (three) times a day 20 g 03/21/2023 ezetimibe (ZETIA) 10 mg tablet TAKE 1 TABLET BY MOUTH EVERY DAY 90 tablet 3 07/30/2021 loperamide (IMODIUM) 2 mg capsule Take 1 capsule orally as needed after each loose stool. (Do not exceed 8 capsules/day) 20 capsule 12/07/2023 metoprolol XL (TOPROL-XL) 25 mg extended release tabletIndications: Paroxysmal atrial fibrillation with RVR (HCC) Take 1 tablet (25 mg total) by mouth daily 30 tablet 11 01/22/2023 midodrine (PROAMATINE) 5 mg tabletIndications: Symptomatic Orthostatic Hypotension Take 1 tablet (5 mg total) by mouth 3 (three) times a day 90 tablet 11 10/20/2023 ondansetron (ZOFRAN) 4 mg tablet Take 1 tablet (4 mg total) by mouth every 8 (eight) hours as needed for nausea or vomiting pantoprazole DR (PROTONIX) 40 mg EC tabletIndications: Treatment of Non-Bleeding Gastric Disorder Take 1 tablet (40 mg total) by mouth daily 30 tablet 11 03/21/2023 prochlorperazine (COMPAZINE) 5 mg tablet Take 1 tablet (5 mg total) by mouth every 6 (six) hours as needed for nausea or vomiting 10 tablet 12/03/2023 sertraline (ZOLOFT) 50 mg tablet Take 1 tablet (50 mg total) by mouth daily 02/13/2024 documented as of this encounter Discharge Disposition Disposition Code Departure Means Destination Discharge to home or self care documented in this encounter Progress Notes * Jamari Briseno MD - 03/17/2024 9:00 AM CDT Right Fluoroscopically-Guided Hip Joint Injection [facility] Department of Orthopedic Surgery Division of Physical Medicine and Rehabilitation Patient name: Tiera Lobato Date of : 1945 Date of service: 03/17/2024 Tiera Lobato presents to the fluoroscopy suite for a fluoroscopically guided right hip injection as part of conservative treatment for hip pain. After informed consent was obtained, the patient was positioned supine on the fluoroscopy table. The right hip joint and intertrochanteric region were located under fluoroscopic guidance. The area was prepped with chlorhexidine and draped in sterile fashion. Using a 25 gauge 2 inch needle, 1-2 mL of 1% lidocaine was infused subcutaneously to anesthetize the region. Then, the needle was advanced to periosteum under fluoroscopic guidance. Confirmation into the joint capsule was attained with the infusion of 0.5 mL of Omnipaque contrast which showed capsular flow. Then, a combination of 1 mL of 1% lidocaine, 3 mL of 0.2% ropivacaine, and 40 mg of 40 mg/mL Kenalog was infused. The patient tolerated the procedure without complications. Pre and post procedure blood pressures were stable. The patient was given verbal as well as written follow-up instructions. A pain diary with follow-up instructions was given to the patient. At the time of discharge following today's procedure, the patient was able to ambulate at their pre-procedure leveland denied ongoing nausea, vomiting, or dizziness. Prior to the start of the procedure, verbal verification by the procedure participant(s) confirmed (as applicable): correct patient identity; correct site/side marked and visible; agreement on the procedure to be done; correct patient positioning; an accurate signed procedure consent form, relevantimages and results correctly labeled and displayed; any safety precautions based on clinical history and/or medication use have been addressed. Fluoroscopic guidance was used to assist right hip joint injection. Confirmation of needle placement into the right hip joint was obtained by injecting approximately 0.5 mL of Omnipaque contrast. There was no evidence of vascular uptake noted. I personally performed or was present for the entire procedure above. Jamari Briseno MD documented in this encounter Plan of Treatment Not on file documented as of this encounter Procedures Procedure Name Priority Date/Time Associated Diagnosis Comments FLUORO GUIDED INJECTION HIP RIGHT Schedule Routine, Read Routine (OP Routine) 03/17/2024 9:23 AM CDT Right hip pain Primary osteoarthritis of right hip documented in this encounter Results * FL Fluoro Guided Injection Hip Right (03/17/2024 9:23 AM CDT) Narrative [facility] - 03/17/2024 9:25 AM CDT The images from this study are not interpreted by Radiology. ??Please refer to the physician's procedure / OR operative note. Jamari Briseno MD IMG FLUOROSCOPY PROCEDURES Final Result [facility] documented in this encounter Visit Diagnoses Diagnosis Right hip pain Pain in joint, pelvic region and thigh Primary osteoarthritis of right hip documented in this encounter Administered Medications Inactive Administered Medications - up to 3 most recent administrations Medication Order MAR Action Action Date Dose Rate Site iohexoL (OMNIPAQUE) 300 mg iodine/mL injection solution As needed, Starting on Fri03/17/24 at 0841, Intra-Op Given 03/17/2024 8:41 AM CDT 0.5 mL lidocaine (PF) (XYLOCAINE) 10 mg/mL (1 %) preservative free injection As needed, Starting on Fri03/17/24 at 0841, Intra-Procedure (IR), Indications: Administration of Local AnesthesiaIndications:Administrati on of Local Anesthesia Given 03/17/2024 8:41 AM CDT 4 mL ROPivacaine (NAROPIN) 2 mg/mL (0.2 %) preservative free injection As needed, Starting on Fri03/17/24 at 0846, Intra-Op Given 03/17/2024 8:46 AM CDT 4 mL triamcinolone (KENALOG) 40 mg/mL injection As needed, Starting on Fri03/17/24 at 0841, Intra-Op Given 03/17/2024 8:41 AM CDT 40 mg documented in this encounter Care Teams Flight Mechanic Relationship Specialty Start Date End Date Cristian Ling MD [address] [place] [address] PCP - General 10/16/16 documented as of this encounter
--- OUTSIDE RECORDS SUMMARY | 2024-06-12 03:52 | XMS_ITS | Referral Summary ---
Author Organization [facility] Address [address] [place] [address] Care Team Providers Care Composition Molder Name Role Phone Cristian Ling MD Primary Care Prov ider Encounters Date Type Department Care Team Description 04/01/2024 Telephone [facility] Orthopaedic Surgery [address] [place] [id number] Harpreet Rosenberg CMA 03/17/2024 8:38 AM CDT - 03/17/2024 11:59 PM CDT Hospital Encounter [id number] Radiology [address] [place] [phone] Jamari Rodríguez MD Right hip pain; Primary osteoarthritis of right hip Discharge Disposition: Discharge to home or self care from Last 3 Months Allergies Active Allergy Reactions Criticality Noted Date [...] Surgery consulted and recommended non-op management. - Jsoe bandages for moderate compression Chronic kidney disease [...] Plan (12/01/2023 12:47 PM CDT): Follows with [facility] Hematology. Anemia thought to be due to iron deficiency as well as CKD stage IIIb. Received iron infusion in 09/2023. On admission hgb 8.4 (bl 7- 9). Iron 72, ferritin 1715. - Stable H/H, last 8.5 NSVT (nonsustained ventricular tachycardia) 11/2023 A-fib (CMS/HCC) 02/17/2023 Assessment & Plan (12/01/2023 12:47 PM CDT): Follows with [facility] Cardiology. History of afib with difficulty [...] spine films at that time. 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 Assessment & Plan (11/29/2023 1:03 PM CDT): - continue home metoprolol XL 25mg daily - continue home atorvastatin 80mg daily - continue home zetia Immunizations Name Administration Dates Next Due Moderna SARS-CoV-2 Monovalent Vaccination (12+ Y RS) 09/06/2020,08/09/2020 Social History Tobacco Use Types Packs/Day Years Used Date Smoking Tobacco: Never Passive Smoke Exposure: Current Smokeless Tobacco: Never Tobacco Cessation:Counseling Given: Not Answered [facility] Utilities Answer Date Recorded In the past 12 months has e [id number], gas, oil, or water [employer] threatened to shut off services in your [...] week 12/04/2023 How often do you attend taoism or uatsdin serv ices? Never 12/04/2023 Do you belong to any clubs o r organizations such as taoism groups, unions, fraternal or athletic groups, or [...] staff should administer the PHQ-9) 0 [facility] Answer Date [...] any time in the past 12 m [facility], were you homeless or living in a correction (including now)? No 12/04/2023 Personal Safety Answer Date Recorded Have you ever been in or are you currently in a harmful physical or emotional relationship or is someone making you feel afraid or unsafe? 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 Gender Identity Female 02/07/2021 4:33 PM CDT Sexual Orientation Straight 02/07/2021 4: 33 PM CDT Last Filed Vital Signs Vital Sign Reading [...] 01/12/2024 10:10 AM CDT Plan of Treatment Not on file Medical Devices Implanted Type Area Environmental Services Lead Device Identifier Shelf Expiration Date Model / Serial / Lot Rt Total Knee Arthroplasty Right: Knee Cataract-Lens Implant Eye [employer] Viabil 10 Mm X 4cm Shortwire [id number] - [id number] - [id number] Implanted:Qty: 1 on 11/26/2023 by Heydi Fenton MD at [facility] [employer] 06/01/2026 [id number] / [id number] / Procedures Procedure Name Priority Date/Time Associated [...] Rodríguez MD IMG FLUOROSCOPY PROCEDURES Final Result [id number] * Hepatitis panel, acute Blood (11/24/2023 12:01 PM CDT) Hep A IgM Nonreactive Nonreactive Hep B core IgM Nonreactive Nonreactive [facility] Hep C Ab Nonreactive Nonreactive [facility] Comment:Antibodies to HCV no t detected. Does NOT exclude the possibility of recent exposure to HCV. Current interpretive data was last revised on 22 HepBsAg Nonreactive Nonreactive [facility] Blood 11/24/2023 12:0 1 PM CDT 11/24/2023 12:20 PM CDT us Kassidy Cunningham MD LAB MICROBIOLOGY - G ENERAL ORDERABLES Final Result [facility] Department [place] [address] from Last 3 Months or Most Recently Relevant to Health Maintenance Insurance [facility] [place] [facility] Member Subscriber Plan / Payer (Ef fective 2021-Present) Name:Tiera Lobato Relation to Subscriber:Self Name:Tiera Lobato Payer ID:[id number] (NAIC) Type:MEDICARE RISK OTHER Address: [address] [place] [id number] [employer] [facility] Advance Directives For more information, please contact: [phone] * Full Code (Latest Code Status on File) Date Activated Date Inactivated Comments 01/12/2024 9:55 AM 01/12/2024 3:53 PM * Full Code Date Activated Date Inactivated Comments 11/26/2023 1:02 PM 12/03/2023 7:36 PM * Full Code Date Activated Date Inactivated Comments 11/25/2023 6:29 PM 11/26/2023 1:02 PM * Full Code Date Activated Date Inactivated Comments 02/17/2023 5:25 PM 03/21/2023 7:10 PM Care Teams Composition Molder Relationship Specialty Start Date End Date Cristian Ling MD [address] [place] [address] PCP - General 10/16/16
--- OUTSIDE RECORDS SUMMARY | 2024-06-12 03:53 | XMS_ITS | Encounter Summary ---
Author Organization [facility] Healthcare Address [address] [place] [address] Care Team Providers Care Power Plant Installer Name Role Phone Cristian Ling MD Primary Care Prov ider Belinda Quigley DIGITAL CIRCUIT DESIGNER Unavailable [phone] Reason for Visit * Reason Comments Diarrhea Encounter Details Date Type Department Care Team (Late st Contact Info) Description 12/07/2023 9:59 AM CDT - 12/07/2023 6:45 PM CDT Emergency [facility] Emergency Department [address] [place] [address] Pio Barreto MD [address] [place] [address] Sharon Rooney MD [address] [place] [address] Sheila Willingham MD [address] [place] [address] Diarrhea, unspecified type (Primary Dx); Dehydration; CLAUDIA (acute kidney injury) (HCC) Discharge Disposition: Discharge to home or self care Social History Tobacco Use Types Packs/Day Years Used Date Smoking Tobacco: Never Passive Smoke Exposure: Current Smokeless Tobacco: Never [facility] Utilities Answer Date Recorded In the [...] week 12/04/2023 How often do you attend yarsanism or baptism serv ices? Never 12/04/2023 Do you belong to any clubs o r organizations such as yarsanism groups, unions, fraternal or athletic groups, or school groups? No 12/04/2023 How often do you attend meet ings of the clubs or organizations you belong to? Never 12/04/2023 Are you , , di vorced, , never , or living with a partner? 12/04/2023 AUDIT-C Answer Date Recorded Q1: How often do you have a drink containing alcohol? Never 11/26/2023 Q2: How many drinks containi ng alcohol do you have on a typical day when you are drinking? Patient does not drink Q3: How often do you have si x or more drinks on one occasion? Never 11/26/2023 Overall Financial Resource Strain (CARDIA) Answe r Date Recorded How hard is it for you to pa y for the very basics like food, housing, medical care, and heating? Not very hard 12/04/2023 PHQ-2 Answer Date Recorded PHQ-2 Total Score (If total score is 3 or more points, staff should administer the PHQ-9) 0 09/28/2020 [facility] of Occupat ional [facility] - Occupational Stress Questionnaire Answer Date [...] any time in the past 12 m [facility], were you homeless or living in a prison (including now)? No 12/04/2023 Personal Safety Answer Date Recorded Have you ever been in or are you currently in a harmful physical or emotional relationship or is someone making you feel afraid or unsafe? Denies 12/07/2023 Comments No Sex and Gender Information Value Date Recorded Sex Assigned at Not on file Legal Sex Female 7:12 AM [employer] Gender Identity Female 02/07/2021 4:33 PM CDT Sexual Orientation Straight 02/07/2021 4: 33 PM CDT documented as of this encounter Last Filed Vital Signs Vital Sign Reading Time Taken Comments Blood Pressure 162/102 12/07/2023 6:00 PM CDT Pulse 109 12/07/2023 6:00 PM CDT Temperature 36.8 ??C (98.3 ??F) 12/07/2023 9:22 AM CD T Respiratory Rate 17 12/07/2023 6:00 PM CDT Oxygen Saturation 97% 12/07/2023 6:00 PM CDT Inhaled Oxygen Concentration - - Weight 68.9 kg (152 lb) 12/07/2023 9:22 AM CDT Height - - Body Mass Index 26.09 11/26/2023 1:02 PM CDT documented in this encounter Discharge Instructions * Discharge Instructions* Jayson Caceres MD - 12/07/2023 4:21 PM CDT You were seen in our emergency department due to nausea, vomiting, and intermittent diarrhea. Your workup, including EKG, cardiac enzymes, electrolyte testing, and blood levels has been overall unremarkable and reassuring with 2 exceptions. As mentioned, you do have a mild CLAUDIA, also known as acute kidney injury, which is likely due to your ongoing dehydration from persistent vomiting. Please continue to hydrate and this should correct itself. You additionally are in atrial fibrillation on your EKG, which is persisting this time in spite of it previously being paroxysmal. I have discussed withthe cardiology team, who indicates that you are receiving the appropriate therapy since your blood pressure is adequate, your heart rate is not significantly elevated, you are on anticoagulation withEliquis, and you have a history of AFib. Please follow-up with your glost placer on an outpatient basis for this. Regarding your nausea, vomiting and diarrhea, we do not have a simple explanation but have ruled out the emergent causes of this. This should continue to resolve on its own over time. Please return to the emergency department for any acute health needs. Thank you for trusting us with your healthcare. documented in this encounter Medications at Time of Discharge alendronate (FOSAMAX) 70 mg tablet TAKE 1 TABLET BY MOUTH ONE TIME PER WEEK 0 11/09/2018 atorvastatin (LIPITOR) 80 mg tablet Take 1 [...] for nausea or vomiting 10 tablet 12/03/2023 acetaminophen 500 mg capsule Take 2 capsules (1,000 mg total) by mouth 3 (three) times a day 30 tablet 03/21/2023 amiodarone (PACERONE) 200 mg tablet Take 1 tablet (200 mg total) by mouth daily 30 tablet 11 08/21/2023 4 sertraline (ZOLOFT) 100 mg tablet Take 0.5 tablets (50 mg total) by mouth daily 11/09/2019 4 documented as of this encounter Ordered Prescriptions Prescription Sig Dispense Quantity Refills Last Filled Start Date End Date loperamide (IMODIUM) 2 mg capsule Take 1 capsule orally as needed after each loose stool. (Do not exceed 8 capsules/day) 20 capsule 12/07/2023 documented in this encounter Discharge Disposition Disposition Code Departure Means Destination Comment s Discharge to home or self care documented in this encounter ED Notes * Jayson Caceres MD - 12/07/2023 10:01 AM CDT HPI Chief Complaint Patient presents with Diarrhea Tiera Lobato is a 78 y.o. female with past medical history notable for HTN, AF on Eliquis, apical variant hypertrophic cardiomyopathy, hepatitis status post CABG, pancreatitis, CKD stage 3, GERD, IBS, HLD, choledocholithiasis with prior biliary stenting who presents to nausea, vomiting, diarrhea. Patient was recently admitted and had ERCP with sphincterotomy and biliary stenting performed on 11/26/2023 complicated by post ERCP pancreatitis with a lipase of 1154. Patient had resolution ofher abdominal pain, nausea, vomiting and was discharged on . She states since that time her abdominal pain, nausea, and vomiting has persisted/returned and been limiting her p.o. intake withno solid and poor liquid intake. Given her suspected dehydration, the patient endorses dizziness and lightheadedness, particularly with position changes such as rolling over in bed, and she occasionally has palpitations. The abdominal pain is most prominent in the right upper quadrant but relatively diffuse and constant. It was aching but not severe enough to mandate analgesics. Her vomitus has been stomach contents or she has been dry heaving. She denies blood or bile. She states that her bowel movements have been yellow appearing and occasionally loose but without blood or mucus. She has previously had palpitations when she goes into and out of AFib, but she is presently in AFib but not noticing. Patient denies other recent changes in health or medications and no other notable sick symptoms including no blurred vision, double vision, difficulty speaking or swallowing, sinus pressure, congestion, cough, shortness of breath, chest pain, dysuria, hematuria. She has had some chills and s ubjective fever addition to mild leg swelling, which is baseline. Patient History: Patient Active Problem List Diagnosis Date Noted History of biliary duct stent placement 12/04/2023 Hematoma of right lower leg 11/29/2023 Chronic kidney disease (CKD), stage III (moderate) ([facility]) 11/29/2023 Pancreatitis 11/29/2023 Acute hepatitis 11/24/2023 Choledocholithiasis 11/24/2023 Iron deficiency anemia, unspecified 10/05/2023 NSVT (nonsustained ventricular tachycardia) ([facility]) 08/20/2023 A-fib ([facility]) ([facility]) 02/17/2023 Atrial fibrillation ([facility]) ([facility]) 01/13/2023 Apical variant hypertrophic cardiomyopathy ([facility]) 12/05/2022 Paroxysmal atrial fibrillation ([facility]) ([facility]) 12/05/2022 Right hip pain 11/22/2021 Other osteoporosis without current pathological fracture 03/07/2021 Lumbar stenosis with neurogenic claudication 09/29/2020 History of OK (myocardial infarction) 12/10/2017 Primary hypertension 11/06/2012 Coronary artery disease involving [place] coronary artery of [place] heart without angina pectoris 09/23/2012 Hx of CABG 09/23/2012 Past Medical History: Diagnosis Date Acid reflux Heart murmur High cholesterol History of blood clots 1960s in leg as teenager - had phlebitis History of OK (myocardial infarction) 2012 History of vertebral fracture 2017 HTN (hypertension) IBS (irritable bowel syndrome) Vertigo Past Surgical History: Procedure Laterality Date CARDIOVERSION 03/2023 COLON SURGERY 1992 Repair burst colon CORONARY ARTERY BYPASS GRAFT 2012 Double by-pass - [facility] FLUORO GUIDED INJECTION HIP RIGHT Right 05/16/2022 FLUORO GUIDED INJECTION HIP RIGHT Right 08/15/2022 FLUORO GUIDED INJECTION HIP RIGHT Right 12/10/2022 FLUORO GUIDED INJECTION HIP RIGHT Right 05/13/[address] James ([place], [place]) TOTAL KNEE ARTHROPLASTY Right 2017 Family History Problem Relation Age of Onset Prostate cancer Father Stroke Child Hypertension Child Social History Tobacco Use Smoking status: Never Passive exposure: Current Smokeless tobacco: Never Substance and Sexual Activity Alcohol use: Not on file Drug use: Yes Types: Medical marijuana Comment: Tablets - tid Sexual activity: Not on file Social History Social History Narrative Not on file Review of Systems Review of Systems Physical Exam ED Triage Vitals [12/07/23 0922] Temp Pulse Resp BP SpO2 36.8 ??C (98.3 ??F) 97 18 113/72 94 % Temp src Heart Rate Source Patient Position BP Location FiO2 (%) Oral -- -- -- -- Height Height Method Weight Weight Method -- -- 68.9 kg (152 lb) Stated Physical Exam Constitutional: General: She is not in acute distress. Appearance: Normal appearance. She is normal weight. She is not toxic-appearing or diaphoretic. HENT: Head: Normocephalic and atraumatic. Nose: Nose normal. No congestion or rhinorrhea. Mouth/Throat: Mouth: Mucous membranes are moist. Pharynx: Oropharynx is clear. No oropharyngeal exudate or posterior oropharyngeal erythema. Eyes: General: No scleral icterus. Right eye: No discharge. Left eye: No discharge. Extraocular Movements: Extraocular movements intact. Conjunctiva/sclera: Conjunctivae normal. Pupils: Pupils are equal, round, and reactive to light. Cardiovascular: Rate and Rhythm: Tachycardia present. Rhythm irregular. Pulses: Normal pulses. Heart sounds: Normal heart sounds. No murmur heard. No friction rub. No gallop. Pulmonary: Effort: Pulmonary effort is normal. No respiratory distress. Breath sounds: Normal breath sounds. No wheezing or rales. Abdominal: General: Bowel sounds are normal. There is no distension. Tenderness: There is abdominal tenderness (relatively diffuse tenderness most prominent in the right upper quadrant with positive Domínguez sign). There is no guarding or rebound. Musculoskeletal: Right lower leg: No edema. Left lower leg: No edema. Skin: General: Skin is warm and dry. Neurological: General: No focal deficit present. Mental Status: She is alert and oriented to person, place, and time. Mental status is at baseline. Motor: No weakness. Psychiatric: Mood and Affect: Mood normal. JAGDEEP Lobato is a 78 y.o. female with past medical history notable for HTN, AF on Eliquis, apical variant hypertrophic cardiomyopathy, hepatitis status post CABG, pancreatitis, CKD stage 3, GERD, IBS, HLD, choledocholithiasis with prior biliary stenting who presents to nausea, vomiting, diarrhea. Patient is pleasant and relatively well appearing on exam with a normal blood pressure and mild tachycardia to the 110 while in AFib. Physical exam is otherwise notable for an Jose wrap on the right lower extremity that reveals a healing hematoma without evidence of induration, erythema, or other infectious signs. She does have relatively diffuse abdominal pain that is most prominent in the right upper quadrant with associated Domínguez sign. Her mucous membranes are dry and cap refill slightly diminished. Presentation is most consistent with dehydration secondary to ongoing gastrointestinalupset. This may represent biliary dumping secondary to her recent biliary stent placement. More concerning but less likely would be stent migration. Alternative etiologic considerations include IBS fl are, gastroenteritis, medication reaction, or pancreatitis. Plan to fluid resuscitate and obtain CBC to assess for leukocytosis, BNP to assess electrolyte levels in kidney function, hepatic function panel to assess for biliary pattern, and lipase to assess for pancreatitis. Disposition is pending clinical course. Medical Decision Making Amount and/or Complexity of Data Reviewed Labs: ordered. Decision-making details documented in ED Course. ECG/medicine tests: ordered and independent interpretation performed. Risk Prescription drug management. Attending Summary of Care ED Course as of 12/07/23 1616 Time: 12/07 1155 Value: Creatinine(!): 1.42 Comment: (Reviewed) By: Jayson Caceres MD Time: 12/07 1155 Value: Alk phos: 118 Comment: (Reviewed) By: Jayson Caceres MD Time: 12/07 1155 Value: ALT(!): 111 Comment: Transaminases reduced from previous By: Jayson Caceres MD Time: 12/06 1512 Comment: Transition of Care Note After a detailed discussion of the patient's case and ongoing management with Dr. Barreto, I am assuming care of this patient, who is, in short, a 78 y.o. female with PMH of biliary disease with recent ERCP/spincterotomy, stone extraction, here with ongoing N/V/D. Also having intermittent a fib. On AC. Awaiting discussion with cardiology and plan for likely discharge following fluids, cardiology discussion. Disposition: pending Impression: There are no diagnoses linked to this encounter. By: Sheila Willingham MD Time: 12/06 1615 Comment: Discussed patient's case with Cardiology, who indicates that if she is rate controlled, hemodynamically stable, anticoagulated, and has outpatient Cardiology follow-up, the patient is stablefor discharge in spite of her persistent AFib while here. By: Jayson Caceres MD No diagnosis found. Jayson Caceres MD Resident 12/07/23 1053 Jayson Caceres MD Resident 12/07/23 1716 Cosigned by Pio Barreto MD at 12/09/2023 12:32 PM CDT Associated attestation - Pio Barreto MD - 12/09/2023 12:32 PM CDT I have seen and examined the patient on 12/07/2023. I agree with the findings and plan of care as documented in the resident's note. * Kailey Magallanes RN - 12/07/2023 9:59 AM CDT Bed: 1[facility] Expected date: Expected time: Means of arrival: Ambulance Comments: Kailey Magallanes RN 12/07/23 0959 * Aguila Avendano RN - 12/07/2023 9:20 AM CDT Pt to the ED for complaints of nausea, vomiting and diarrhea over the past 2 weeks. Pt had a gallstone removed at this facility last week. Pt reports generalized abdominal pain. documented in this encounter Miscellaneous Notes * ED Procedure Note - Jayson Caceres MD - 12/07/2023 11:07 AM CDT Associated Order(s): ECG 12 lead Procedure ECG 12 lead Date/Time: 12/07/2023 11:07 AM Performed by: Jayson Caceres MD Authorized by: Jayson Caceres MD Rate: ECG rate: 116 ECG rate assessment: tachycardic Rhythm: Rhythm: atrial fibrillation Ectopy: Ectopy: none QRS: QRS axis: Left QRS intervals: Wide (108) Conduction: Conduction: normal ST segments: ST segments: Normal T waves: T waves: inverted Q waves: Q waves: I Other findings: Other findings: LVH Previous ECG: Previous ECG comparison: 11/27/2023. Interpretation: Interpretation: No significant change Recommended Follow-up: Recommended follow up: further workup in the ED Jayson Caceres MD Resident 12/07/23 1108 Cosigned by Pio Barreto MD at 12/09/2023 12:32 PM CDT Associated attestation - Pio Barreto MD - 12/09/2023 12:32 PM CDT I have personally reviewed the tracing and the resident's interpretation. I agree with the findings. documented in this encounter Plan of Treatment Not on file documented as of this encounter Procedures Procedure Name Priority Date/Time Associated Diagnosis Comments RESPIRATORY PATHOGEN PANEL Routine 12/07/2023 4:41 PM CDT TROPONIN I HIGH-SENSITIVITY 4-HOUR Timed 12/07/2023 2:56 PM CDT TROPONIN I HIGH-SENSITIVITY 2-HOUR Timed 12/07/2023 1:45 PM CDT ECG 12-LEAD Routine 12/07/2023 11:07 AM CDT TROPONIN I HIGH-SENSITIVITY SERIES (BASELINE, 2HR, 4HR, 6HR) STAT 12/07/2023 10:54 AM CDT EGFR Routine 12/07/2023 10:54 AM CDT DIFFERENTIAL AUTO STAT 12/07/2023 10: 54 AM CDT CBC WITH AUTO DIFFERENTIAL STAT 12/07/2023 10:54 AM CDT LIPASE Routine 12/07/2023 10:54 AM CDT HEPATIC FUNCTION PANEL STAT 12/07/2023 10:54 AM CDT BASIC METABOLIC PANEL Routine 12/07/2023 10:54 AM CDT documented in this encounter Results * Respiratory pathogen panel Nasopharyngeal (12/07/2023 4:41 PM CDT) Influenza A RNA Not Detected Not Detected Influenza B RNA Not Detected Not Detected [facility] RSV RNA Not Detected Not Detected [facility] COVID-19 RNA Not Detected Not Detected [facility] Coronavirus 229E RNA Not Detected Not Detected [facility] Coronavirus HKU1 RNA Not Detected Not Detected [facility] Coronavirus NL63 RNA Not Detected Not Detected [facility] Coronavirus OC43 RNA Not Detected Not Detected [facility] Adenovirus DNA Not Detected Not Detected [facility] Metapneumovirus RNA Not Detected Not Detected [facility] Rhinovirus/Enterov irus RNA Not Detected Not Detected [facility] Parainfluenza 1 RNA Not Detected Not Detected [facility] Parainfluenza 2 RNA Not Detected Not Detected [facility] Parainfluenza 3 RNA Not Detected Not Detected [facility] Parainfluenza 4 RNA Not Detected Not Detected [facility] B. pertussis DNA Not Detected Not Detected [facility] B. parapertussis DNA Not Detected Not Detected [facility] C. pneumoniae DNA Not Detected Not Detected [facility] M. pneumoniae DNA Not Detected Not Detected [facility] Nasopharyngeal 12/07/2023 4: 41 PM CDT 12/07/2023 4:57 PM CDT Narrative [facility] - 12/07/2023 5:53 PM CDT Is the Patient experiencing symptoms consistent with COVID?->Unknown Surveillance testing for transplant patient?->No ??Interpretive Data The [employer] FilmArray Respiratory Panel (RP2.1) assay is a multiplexed real-time PCR based nucleic acid test capable of simultaneous qualitative detection and identification of multiple respiratory viral and bacterial nucleic acids, including SARS Coronavirus 2 (the causative agent of COVID-19). The following bacteria, viruses and virus subtypes can be identified using the FilmArray RP2.1 assay: Bordetella pertussis, Bordetella parapertussis, Chlamydia pneumoniae, Mycoplasma pneumoniae, Adenovirus, SARS Coronavirus 2, seasonal coronaviruses (Coronavirus HKU1, Coronavirus NL63, Coronavirus 229E, and Coronavirus OC43), Influenza A, Influenza A subtype H1, Influenza A subtype H3, Influenza A subtype 2009 H1, Influenza B, Metapneumovirus, Parainfluenza 1, Parainfluenza 2, Parainfluenza 3, Parainfluenza 4, RSV, Rhinovirus/Enterovirus. Due to the genetic similarity between human Rhinovirus and Enterovirus, the FilmArray RP2.1 assay cannot reliably differentiate them. Coronavirus OC43 may cross-react with some isolates of Coronavirus HKU1. ??A dual positive result may be due to cross-reactivity or may indicate a co-infection. The detection and identification of specific viral and bacterial nucleic acids from individuals exhibiting signs and symptoms of a respiratory infection aids in the diagnosis of respiratory infection if used in conjunction with other clinical and epidemiological information. ??The results of this test should not be used as the sole basis for diagnosis, treatment, or other management decisions. ??Negative results in the setting of a respiratory illness may be due to infection with pathogens that are not detected by this test. ??Positive results do not rule out infection/co-infection with other organisms. ??The agent(s) detected by the FilmArray RP2.1 may not be the definite cause of disease. ??Additional testing (lab, imaging, etc.) may be necessary when evaluating a patient with possible respiratory tract infection. The FilmArray RP2.1 assay has FDA clearance for testing of COLLEGE OR UNIVERSITY FAC[employer] MEMBER swabs. ??The performance of additional specimen types has been assessed by the performing laboratory. ??The performance characteristics of this assay have been determined by [facility]. Current interpretive data was last revised on 22. Jayson Caceres MD LAB MICROBIOLOGY - GENERA L ORDERABLES Final Result [facility] Department [place] [address] * (ABNORMAL) Troponin I high-sensitivity 4-hour (12/07/2023 2:56 PM CDT) Trop I hs 46(H) <=17 ng/L Comment: Interpretive Data For further hscTnI resources including the diagnostic algorithm and an aid in interpretation, copy and paste this link: [email or web address]/show/[email or web address] Current Interpretive Data last revised 2019. Trop I hs delta -1 ng/L [facility] Trop I hs interp Insignificant [facility] Blood 12/07/2023 2:56 PM CDT 12/07/2023 3:09 PM CDT Jayosn Caceres MD LAB BLOOD ORDERABLES Caitlyn l Result Performing Organization Address [facility] de Phone Number [facility] [place] [address] * (ABNORMAL) Troponin I high-sensitivity 2-hour (12/07/2023 1:45 PM CDT) Trop I hs 51(H) <=17 ng/L Comment: Interpretive Data For further hscTnI resources including the diagnostic algorithm and an aid in interpretation, copy and paste this link: [email or web address]/show/[email or web address] Current Interpretive Data last revised 2019. Trop I hs delta 4 ng/L [facility] Trop I hs interp Insignificant CERNER [facility] H Blood 12/07/2023 1:45 PM CDT 12/07/2023 1:56 PM CDT Result [facility] Jayson Caceres MD LAB BLOOD ORDERABLES Caitlyn l Result Performing Organization Address [facility] [place] [address] * ECG 12-LEAD (12/07/2023 11:07 AM CDT) Narrative [facility] - 12/07/2023 11:07 AM CDT Jayson Caceres MD ? 12/07/2023 11:08 AM ECG 12 lead Date/Time: 12/07/2023 11:07 AM Performed by: Jayson Caceres MD Authorized by: Jayson Caceres MD ?? Rate: ??ECG rate: ??116 ??ECG rate assessment: tachycardic ?? Rhythm: ??Rhythm: atrial fibrillation ?? Ectopy: ??Ectopy: none ?? QRS: ??QRS axis: ??Left ??QRS intervals: ??Wide (108) Conduction: ??Conduction: normal ?? ST segments: ??ST segments: ??Normal T waves: ??T waves: inverted ?? Q waves: ??Q waves: ??I Other findings: ??Other findings: LVH ?? Previous ECG: ??Previous ECG comparison: 11/27/2023. Interpretation: ??Interpretation: No significant change ?? Recommended Follow-up: ??Recommended follow up: further workup in the ED ?? us Jayson Caceres MD ECG ORDERABLES Final Res ult [facility] * (ABNORMAL) eGFR (12/07/2023 10:54 AM CDT) eGFR 38(L) >=60 mL/min/1. 73 m2 Comment: Interpretive Data Reference Interval Normal ?>/= 90 mL/min/1.73m2 Mildly decreased* ? 60 - 89 mL/min/1.73m2 Mildly to moderately decreased ?45 - 59 mL/min/1.73m2 Moderately to severely decreased ??30 - 44 mL/min/1.73m2 Severely decreased ?15 - 29 mL/min/1.73m2 Kidney Failure ?< 15 ??mL/min/1.73m2 *Relative to young adult level Estimated glomerular filtration rate is determined by the 2020 CKD-EPI equation recommended by the National [employer] (A Unifying Approach to GFR Estimation: Recommendations of the NKF-ASK Task Force on Reassessing the Inclusion of Race in Diagnosing Kidney Disease, JASN 2020). The CKD-EPI equation should not be used for patients with unstable renal function and has not been validated in children and those over 70. Current interpretive data was last reviewed 2021. Blood 12/07/2023 10:5 4 AM CDT 12/07/2023 11:15 AM CDT us Jayson Caceres MD LAB BLOOD ORDERABLES Caitlyn dominguez Result [facility] Department [place] [address] * (ABNORMAL) Differential, auto (12/07/2023 10:54 AM CDT) Neutrophil abs 6.4 1.5 - 6.5 K/cumm Imm gran abs 0.1 0.0 - 0.1 K/cumm [facility] Lymphocyte abs 1.2 0.8 - 3.3 K/cumm [facility] Monocyte abs 0.9(H) 0.2 - 0.8 K/cumm [facility] Eosinophil abs 0.0 0.0 - 0.5 K/cumm [facility] Basophil abs 0.1 0.0 - 0.1 K/cumm [facility] Neutrophil pct 74.4 % [facility] Comment: Interpretive Data Percent cell count reference ranges are not reported, since discordance with absolute values may lead to misinterpretation of CBC data. Current Interpretive Data was last revised on 2017. Imm gran pct 0.6 % [facility] Comment: Interpretive Data Percent cell count reference ranges are not reported, since discordance with absolute values may lead to misinterpretation of CBC data. Current Interpretive Data was last revised on 2017. Lymphocyte pct 13.7 % [facility] Comment: Interpretive Data Percent cell count reference ranges are not reported, since discordance with absolute values may lead to misinterpretation of CBC data. Current Interpretive Data was last revised on 2017. Monocyte pct 10.2 % [facility] Comment: Interpretive Data Percent cell count reference ranges are not reported, since discordance with absolute values may lead to misinterpretation of CBC data. Current Interpretive Data was last revised on 2017. Eosinophil pct 0.2 % [facility] Comment: Interpretive Data Percent cell count reference ranges are not reported, since discordance with absolute values may lead to misinterpretation of CBC data. Current Interpretive Data was last revised on 2017. Basophil pct 0.9 % [facility] Comment: Interpretive Data Percent cell count reference ranges are not reported, since discordance with absolute values may lead to misinterpretation of CBC data. Current Interpretive Data was last revised on 2017. Blood 12/07/2023 10:5 4 AM CDT 12/07/2023 11:15 AM CDT Jayson Caceres MD LAB BLOOD ORDERABLES Caitlyn l Result Performing Organization Address [facility] Co de Phone Number [facility] [place] [address] * (ABNORMAL) Troponin I high-sensitivity series (baseline, 2hr, 4hr, 6hr) (12/07/2023 10:54 AM CDT) Trop I hs 47(H) <=17 ng/L Comment: Interpretive Data For further hscTnI resources including the diagnostic algorithm and an aid in interpretation, copy and paste this link: https://bjhlab.testcatalog.org/show/[email or web address] Current Interpretive Data last revised 2019. Blood 12/07/2023 10:5 4 AM CDT 12/07/2023 11:15 AM CDT Result [facility] Jayson Caceres MD LAB BLOOD ORDERABLES Caitlyn l Result Performing Organization Address [facility]/ZIP Co de Phone Number [facility] Department [place] [address] * Lipase (12/07/2023 10:54 AM CDT) Lipase 77 10 - 99 Units/L Blood 12/07/2023 10:5 4 AM CDT 12/07/2023 11:15 AM CDT Result [facility] Jayson Caceres MD LAB BLOOD ORDERABLES Caitlyn l Result Performing Organization Address [facility] de Phone Number [facility] Department [place] [address] * (ABNORMAL) Hepatic function panel (12/07/2023 10:54 AM CDT) [facility] Bilirubin, total 0.8 0.1 - 1.2 mg/dL Bilirubin, direct 0.2 0.1 - 0.3 mg/dL [facility] Protein, pl 7.4 6.5 - 8.5 g/dL [facility] Albumin 3.9 3.5 - 5.0 g/dL [facility] Alk phos 118 40 - 130 Units/L [facility] ALT 111(H) 7 - 45 Units/L [facility] AST 77(H) 10 - 45 Units/L [facility] Comment:Hemolyzed; result ma y be falsely elevated Blood 12/07/2023 10:5 4 AM CDT 12/07/2023 11:15 AM CDT Jayson Caceres MD LAB BLOOD ORDERABLES Caitlyn l Result Performing Organization Address [facility] de Phone Number [facility] Department [place] [address] * (ABNORMAL) Basic metabolic panel (12/07/2023 10:54 AM CDT) [facility] Sodium 141 135 - 145 mmol/L Potassium, pl 4.1 3.3 - 4.9 mmol/L [facility] Comment:Hemolyzed; Potassium value may be falsely elevated by as much as 0.3-0.5 mmol/L. Suggest redraw and reanalysis. Chloride 101 97 - 110 mmol/L [facility] CO2 22 22 - 32 mmol/L [facility] Anion gap 18(H) 2 - 15 mmol/L [facility] BUN 15 6 - 25 mg/dL [facility] Creatinine 1.42(H) 0.60 - 1.10 mg/dL [facility] Glucose 111 70 - 199 mg/dL [facility] Comment: Interpretive Data Fasting glucose >/= 126 mg/dl is diagnostic for diabetes. ?? Fasting is defined as no caloric intake for at least 8 hours. Fasting glucose between 100 mg/dl to 125 mg/dl is diagnostic of prediabetes. In a patient with classic symptoms of hyperglycemia or hyperglycemic crisis, a random glucose >/= 200 mg/dl is diagnostic for diabetes. In the absence of unequivocal hyperglycemia, results should be confirmed by repeat testing. The classification and Diagnosis of Diabetes Diabetes Care 202; 46: S19-S40. Current interpretive data was last revised 2022. Calcium 10.8(H) 8.5 - 10.3 mg/dL [facility] Blood 12/07/2023 10:5 4 AM CDT 12/07/2023 11:15 AM CDT Jayson Caceres MD LAB BLOOD ORDERABLES Caitlyn dominguez Result [facility] Department [place] [address] * (ABNORMAL) CBC with auto differential (12/07/2023 10:54 AM CDT) [facility] WBC 8.6 3.8 - 9.9 K/cumm Hgb 12.1 11.9 - 15.5 g/dL [facility] Hct 39.4 35.6 - 45.5 % [facility] Plt 281 150 - 400 K/cumm [facility] MPV 13.6(H) 9.1 - 12.3 fL [facility] RBC 4.26 3.90 - 5.20 M/cumm [facility] MCV 92.5 81.3 - 96.4 fL [facility] MCH 28.4 27.1 - 33.3 pg [facility] MCHC 30.7(L) 32.3 - 35.7 g/dL [facility] RDW CV 22.3(H) 11.1 - 14.9 % [facility] RDW SD 74.2(H) 35.7 - 48.1 fL [facility] NRBC abs 0.00 0.00 - 0.01 K/cumm [facility] Blood 12/07/2023 10:5 4 AM CDT 12/07/2023 11:15 AM CDT us Jayson Caceres MD LAB BLOOD ORDERABLES Caitlyn dominguez Result [facility] Department [place] [address] documented in this encounter Visit Diagnoses Diagnosis Facial abscess- Primary Cellulitis and abscess of face Diarrhea, unspecified type Dehydration CLAUDIA (acute kidney injury) (HCC) documented in this encounter Admitting Diagnoses Diagnosis Facial abscess Cellulitis and abscess of face documented in this encounter Administered Medications Inactive Administered Medications - up to 3 most recent administrations Medication Order MAR Action Action Date Dose Rate Site Lactated Ringer's (LR) bolus 1,000 mL 1,000 mL, intravenous, Once, On 12/07/23 at 1054, For 1 dose New Bag 12/07/2023 11:04 AM CDT 1,000 mL Lactated Ringer's (LR) bolus 1,000 mL 1,000 mL, intravenous, Once, On 12/07/23 at 1428, For 1 dose New Bag 12/07/2023 2:58 PM CDT 1,000 mL prochlorperazine (COMPAZINE) injection 5 mg 5 mg, intravenous, Administer over 2 Minutes, Once, On 12/07/23 at 1156, For 1 dose Given 12/07/2023 12:27 PM CDT 5 mg documented in this encounter Active and Recently Administered Medications Times are shown in CDT. Scheduled Medication Order 12/05/2023 12/06/2023 12/07/2023 Lactated Ringer's (LR) bolus 1,000 mL (COMPLETED) 1,000 mL, intravenous, Once, On 12/07/23 at 1054, For 1 dose 1104 (New Bag - Prov ider: Mary Lou López RN)1300 (Stopped - Provider: Mary Lou López RN) Lactated Ringer's (LR) bolus 1,000 mL (COMPLETED) 1,000 mL, intravenous, Once, On 12/07/23 at 1428, For 1 dose 1458 (New Bag - Prov ider: Mary Lou López RN)1700 (Stopped - Provider: Mary Lou López RN) loperamide (IMODIUM) capsule 2 mg 2 mg, oral, Once, On 12/07/23 at 1229, For 1 dose, Maximum recommended dose 16 mg/day 1254 (Not Given - Pr ovider: Mary Lou López RN - Reason: Patient/family refused) prochlorperazine (COMPAZINE) injection 5 mg (COMPLETED) 5 mg, intravenous, Administer over 2 Minutes, Once, On 12/07/23 at 1156, For 1 dose 1227 (Given - Provid er: Mary Lou López RN) documented in this encounter Orders Medications Ordered That Juvenal ht Not Have Been Administered Count Last Ordered Date First Ordered Date dexAMETHasone (DECADRON) 4 m g/mL injection 10 mg 1 12/07/2023 loperamide (IMODIUM) capsule 2 mg 1 024 documented in this encounter Additional Health Concerns Infection Onset Date Last Indicated Resolved Time COVID: Suspected 12/07/2023 12/07/2023 12/07/2023 5:54 PM CDT documented as of this encounter Care Teams Power Plant Installer Relationship Specialty Start Date End Date Cristian Ling MD [address] [place] [address] PCP - General 10/16/16 Belinda Quigley, SERG [address] [facility] ([facility]) Mailstop [phone] [place] [address] SHOP Outpatient Medical Anthropologist 12/04/23 12/30/23 documented as of this encounter
--- OUTSIDE RECORDS SUMMARY | 2024-06-12 03:53 | XMS_ITS | Encounter Summary ---
Author Organization [facility] Healthcare Address [address] [place] [address] Care Team Providers Care Precision Grinder External Name Role Phone Cristian Ling MD Primary Care Prov ider Belinda Quigley IMPLEMENTATION SPECIALIST Unavailable [phone] Reason for Visit * Reason Comments Successfully Completed Encounter Details Date Type Department Care Team (Late st Contact Info) Description 12/08/2023 SHOP/CHAP Subsequent Outreach [facility] OP CASE MANAGEMENT [address] [place] [id number] Belinda Quigley, IMPLEMENTATION SPECIALIST [address] [facility] ([facility]) Mailstop [phone] [place] [address] Social History Tobacco Use Types Packs/Day Years Used Date Smoking Tobacco: Never Passive Smoke Exposure: Current Smokeless Tobacco: Never [facility] Utilities Answer Date Recorded In the past 12 months has [facility] [employer], gas, oil, or water [employer] threatened to shut off services in your [...] week 12/04/2023 How often do you attend hinduism or faith serv ices? 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 Pt was in the ED yesterday. Pt reports she is feeling better today. OCM will reach out to pt's Cardiology team regarding follow up recommendations. Pt sees her PCP onThursday, 12/10. Pt reports the staff at her [facility] may be able to assist with setting up home health. She will follow up with them and have them get in contact with Dr. Ling's office. Pt does not have any other questions at this time. OCM will continue to follow. documented in this encounter Plan of Treatment Not on file documented as of this encounter Visit Diagnoses Not on filedocumented in this encounter Care Teams Precision Grinder External Relationship Specialty Start Date End Date Cristian Ling MD [address] [place] [address] PCP - General 10/16/16 Belinda Quigley LCSW [address] [facility] ([facility]) Mailstop [phone] [place] [address] SHOP Outpatient Laborer Poultry Hatchery 12/04/23 12/30/23 documented as of this encounter
--- OUTSIDE RECORDS SUMMARY | 2024-06-12 03:53 | XMS_ITS | Encounter Summary ---
Author Organization [facility] Healthcare Address [address] [place] [address] Care Team Providers Care Icebox Man Name Role Phone Cristian Ling MD Primary Care Prov ider Belinda Quigley COAT REPAIR INSPECTOR Unavailable [phone] Reason for Visit * Reason Comments Successfully Completed Encounter Details Date Type Department Care Team (Late st Contact Info) Description 12/04/2023 SHOP/CHAP Initial Outreach [facility] OP CASE MANAGEMENT [address] [place] [phone] Belinda Quigley, COAT REPAIR INSPECTOR [address] [facility] ([facility]) Mailstop [phone] [place] [address] Social History Tobacco Use Types Packs/Day Years Used Date Smoking Tobacco: Never Passive Smoke Exposure: Current Smokeless Tobacco: Never [facility] Utilities Answer Date Recorded In the past 12 months has [facility] [employer] gas, oil, or water [employer] threatened to shut off services in your [...] week 12/04/2023 How often do you attend jainism or sikh serv ices? Never 12/04/2023 Do you belong to any clubs o r organizations such as jainism groups, unions, fraternal or athletic groups, or [...] staff should administer the PHQ-9) 0 09/28/2020 [facility] [place] of Occupat ional Health - Occupational Stress [...] any time in the past 12 m [facility], were you homeless or living in a assisted (including now)? 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 Pt consented to participate in SHOP. Pt [facility] in an [facility]. They assist pt with her medications. Pt reports she is feeling weak from her hospitalization. Pt was under the impression that she would be receiving home health services (PT) at discharge. OCM checked with the inpatient CM but this was not arranged prior to discharge. OCM contacted Dr. Ling's office. They will work on setting up home health services. Pt has a Primary Care appointment on 12/10. Pt is waiting on GI follow up. OCM encouraged pt to reach out with any needs. OCM will continue to follow. documented in this encounter Plan of Treatment Not on file documented as of this encounter Visit Diagnoses Not on filedocumented in this encounter Care Teams Icebox Man Relationship Specialty Start Date End Date Cristian Ling MD [address] [place] [address] PCP - General 10/16/16 Belinda Quigley LCSW [address] [facility] ([facility]) Mailstop [phone] [place] [address] SHOP Outpatient Buzzsaw Operator 12/04/23 12/30/23 documented as of this encounter
--- OUTSIDE RECORDS SUMMARY | 2024-06-12 03:53 | XMS_ITS | Encounter Summary ---
Author Organization [facility] Healthcare Address [address] [place] [address] Care Team Providers Care Funds Development Director Name Role Phone Cristian Ling MD Primary Care Prov ider Reason for Visit * Auth/Cert Specialty Diagnoses / Procedures Referred By Paula t Referred To Contact Diagnoses History of biliary duct stent placement History of biliary duct stent placement [Z98.890] Procedures ID ERCP REMOVE FOREIGN BODY/STENT BILIARY/PANC DUCT ERCP- stent removal Referral ID Status Reason Start Date Expiration Date Visits Re quested Visits Authorized [id number] 1 1 Encounter Details Date Type Department Care Team (Latest Contact Info) Description 01/12/2024 10:00 AM CDT - 01/12/2024 11:00 AM CDT Surgery [facility] [address] [place] [address] Wilfred Howard MD [address] [place] [address] ENDO ADD ON ENDOSCOPIC RETROGRADE CHOLANGIOPANCREATOGRAPHY REMOVAL STONES Surgery Details Date/Time Status Location OR Service Patient Class Case Class Case Type Trauma Case? 01/12/2024 10:00 AM Posted [facility] ENDOSCOPY ERCP 02 Gastroenterology Outpatient Elective Panel 1 Procedure LRB Anes Op Region Wound Class Comments ENDO ADD ON ENDOSCOPIC RETROGRADE CHOLANGIOPANCREATOGRAPHY REMOVAL STONES N/A Monitor Anesthesia Care N/A RAD S AND I BILIARY DUCTAL SYSTEM N/A General ENDO ENDOSCOPIC RETROGRADE CHOLANGIOPANCREATOGRAPHY WITH REMOVAL FOREIGN BODY/STENT N/A Choice Surgeon Surgeon Role Service Panel Wlifred Howard MD Primary Gastroenterology 1 documented in this encounter Social History Tobacco Use Types Packs/Day Years Used Date Smoking Tobacco: Never Passive Smoke Exposure: Current Smokeless Tobacco: Never [facility] [employer] Answer Date Recorded In the past 12 months has e electric, gas, oil, or water company [...] week 12/04/2023 How often do you attend hindu or yarsanism serv ices? 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 Gender Identity Female 02/07/2021 4:33 PM CDT Sexual Orientation Straight 02/07/2021 4: 33 PM CDT documented as of this encounter Last Filed Vital Signs Vital Sign Reading Time Taken Comments Blood Pressure 134/70 01/12/2024 11:00 AM CDT Pulse 68 01/12/2024 11:00 AM CDT Temperature 36 ??C (96.8 ??F) 01/12/2024 10:50 AM CDT Respiratory Rate 17 01/12/2024 11:00 AM CDT Oxygen Saturation 97% 01/12/2024 11:00 AM CDT Inhaled Oxygen Concentration - - Weight 65.3 kg (144 lb) 01/12/2024 10:10 AM CDT Height 162.6 cm (5' 4 ) 01/12/2024 10:10 AM CDT Body Mass Index 24.72 01/12/2024 10:10 AM CDT documented in this encounter Medications at Time [...] (three) times a day 30 tablet 03/21/2023 4 amiodarone (PACERONE) 200 mg tablet Take 1 tablet (200 mg total) by mouth daily 30 tablet 11 08/21/2023 4 sertraline (ZOLOFT) 100 mg tablet Take 0.5 tablets (50 mg total) by mouth daily 11/09/2019 4 documented as of this encounter Discharge Disposition Disposition Code Departure Means Destination Comment s Discharge to home or self care documented in this encounter H&P Notes * Wilfred Howard MD - 01/12/2024 9:26 AM CDT Pre Endoscopy History and Physical Tiera Lobato is a 78 y.o. female who is here for Procedure(s): ERCP- stent removal The indication(s) for the procedure(s): History of choledocholithiasis s/p ERCP with biliary sphincterotomy and stent placement, here for stent removal. Past Medical History: Diagnosis Date Acid reflux Heart murmur High cholesterol History of blood clots 1960s in leg as teenager - had phlebitis History of MD (myocardial infarction) 2012 History of vertebral fracture 2017 HTN (hypertension) IBS (irritable bowel syndrome) Vertigo Past Surgical History: Procedure Laterality Date CARDIOVERSION 03/2023 COLON SURGERY 1992 Repair burst colon CORONARY ARTERY BYPASS GRAFT 2012 Double by-pass - [facility] FLUORO GUIDED INJECTION HIP RIGHT Right 05/16/2022 FLUORO GUIDED INJECTION HIP RIGHT Right 08/15/2022 FLUORO GUIDED INJECTION HIP RIGHT Right 12/10/2022 FLUORO GUIDED INJECTION HIP RIGHT Right 05/13/[address] James ([place], [place]) TOTAL KNEE ARTHROPLASTY Right 2018 Social History Tobacco Use Smoking status: Never Passive exposure: Current Smokeless tobacco: Never Substance and Sexual Activity Drug use: Yes Types: Medical marijuana Comment: Tablets - tid Sexual activity: Not on file Alcohol Use: Not At Risk (11/26/2023) AUDIT-C Frequency of Alcohol Consumption: Never Average Number of Drinks: Patient does not drink Frequency of Binge Drinking: Never Family History Problem Relation Age of Onset Prostate cancer Father Stroke Child Hypertension Child Allergies Allergen Reactions Codeine Hives and Shortness of breath Tramadol Shortness of breath and Unknown Latex Itching Milk Nausea & Vomiting Prior to Admission medications Medication Sig Start Date End Date Taking? Authorizing Provider acetaminophen 500 mg capsule Take 2 capsules (1,000 mg total) by mouth 3 (three) times a day 03/21/23 Te Baker MD PhD alendronate (FOSAMAX) 70 mg tablet TAKE 1 TABLET BY MOUTH ONE TIME PER WEEK 11/09/18 Provider, MD Fidel amiodarone (PACERONE) 200 mg tablet Take 1 tablet (200 mg total) by mouth daily 08/21/23 Sami Stafford MD apixaban (Eliquis) 5 mg tablet Take 1 tablet (5 mg total) by mouth 2 (two) times a day 03/21/23 11/25/23 Te Baker MD PhD atorvastatin (LIPITOR) 80 mg tablet Take 1 tablet (80 mg total) by mouth nightly 03/21/23 03/20/24 Te Baker MD PhD calcium carbonate-vitamin D3 1,250mg (500mg elemental) - 5 mcg (200 units) per tablet Take 1 tabletby mouth daily 03/21/23 03/20/24 Te Baker MD PhD diclofenac sodium (VOLTAREN) 1 % gel Apply 2 g topically 3 (three) times a day 03/21/23 Te Baker MD PhD ezetimibe (ZETIA) 10 mg tablet TAKE 1 TABLET BY MOUTH EVERY DAY 07/30/21 Sami Stafford MD linaCLOtide (Linzess) 145 mcg capsule Take 1 capsule (145 mcg total) by mouth daily before breakfast 03/21/23 11/25/23 Te Baker MD PhD loperamide (IMODIUM) 2 mg capsule Take 1 capsule orally as needed after each loose stool. (Do not exceed 8 capsules/day) 12/07/23 Jayson Caceres MD metoprolol XL (TOPROL-XL) 25 mg extended release tablet Take 1 tablet (25 mg total) by mouth daily 01/22/23 Sami Stafford MD midodrine (PROAMATINE) 5 mg tablet Take 1 tablet (5 mg total) by mouth 3 (three) times a day 10/20/23Sami Stafford MD ondansetron (ZOFRAN) 4 mg tablet Take 1 tablet (4 mg total) by mouth every 8 (eight) hours as needed for nausea or vomiting ProviderFidel MD pantoprazole DR (PROTONIX) 40 mg EC tablet Take 1 tablet (40 mg total) by mouth daily 03/21/23 03/20/24 Te Baker MD PhD prochlorperazine (COMPAZINE) 5 mg tablet Take 1 tablet (5 mg total) by mouth every 6 (six) hours asneeded for nausea or vomiting 12/03/23 Elio Lewis MD sertraline (ZOLOFT) 100 mg tablet Take 0.5 tablets (50 mg total) by mouth daily 11/09/19 Provider, MD Fidel Review of Systems A pertinent, focused review of systems was completed and negative, except as noted above. OBJECTIVE: Vitals: There were no vitals filed for this visit. Physical Exam: Airway: No significant abnormality. Cardiac: No significant abnormality. Pulmonary: No significant abnormality. Neurological: No significant abnormality. Gastrointestinal: No significant abnormality. ASA Score: per Anesthesia Sedation/Anesthesia Plan: per Anesthesia The risks and complications of the procedure have been explained to the patient. Informed consent was signed. Impression and plan: Will proceed with the planned procedure for the reasons stated above. documented in this encounter Procedure Notes * Wilfred Howard MD - 01/12/2024 9:48 AM CDTAssociated Order(s): ERCP GI ENDOSCOPY [facility] Patient Name: Tiera Lobato Procedure Date: 01/12/2024 9:48 AM Date of : 1945 Admit Type: Outpatient Age: 78 Gender: Female Attending MD: Wilfred Howard M.D. Room: [facility] ENDOSCOPY ROOM 2 Note Status: Finalized Procedure: ERCP Indications: Biliary stent removal; History of choledocholithiasis s/p ERCP with biliary sphincterotomy and stent placement, here for stent removal Referring MD: Duong Choi M.D. Providers: Wilfred Howard M.D. Comorbidities See the other procedure note for documentation of comorbidities Medicines: Monitored Anesthesia Care Complications: Supraventricular tachycardia (SVT) which broke with a dose of esmolol (refer to Anesthesia notes). Estimated Blood Loss: Estimated blood loss: none. Procedure: The benefits, risks, and alternatives to the procedure and sedation were discussed and informed consent was obtained. The [id number] Duodenoscope was introduced through the mouth, and used to inject contrast into and used to inject contrast into the bile duct. Findings: A biliary stent and surgical clips were visible on the coil spring assembler film. The esophagus was successfully intubated under direct vision. The scope was advanced to the major papilla in the descending duodenum without detailed examination of the pharynx, larynx and associated structures, and upper GI tract. The upper GI tract was grossly normal. The major papilla was adjacent to a diverticulum. One covered metal biliary stent originating in the biliary tree was emerging from the major papilla. The stent was visibly occluded and was subsequently removed using rat-toothed forceps. A biliary sphincterotomy had been performed. The sphincterotomy appeared open. A 0.025 inch x 450 cm angled Visiglide wire was passed into the biliary tree. The biliary tree was swept with a 15 mm balloon starting at the left intrahepatic duct(s) and right intrahepatic duct(s). Sludge was swept from the duct. A few stones were removed. No stones remained. Preparations were made for cholangiography using balloon occlusion technique. A balloon-tipped catheter was advanced into the left main hepatic duct. The balloon was inflated to 15 mm in size. Contrast was then injected into the biliary tree. I personally interpreted the bile duct images. Ductal flow of contrast was adequate. Image quality was adequate. Contrast extended to the hepatic ducts. The main bile duct was diffusely dilated to 15 mm with no evidence of residual filling defects or stricture. As such, no further biliary intervention was performed. Contrast was swept and aspirated from the duct and the endoscope was withdrawn from the patient. Impression: - The major papilla was adjacent to a diverticulum. - One visibly occluded stent from the biliary tree was seen in the major papilla and was subsequently removed using a rat-toothed forceps. - Prior biliary sphincterotomy appeared open. - Sweeps of the biliary system yielded choledocholithiasis and sludge. Complete removal was accomplished by balloon extraction. - Final occlusion cholangiogram with no residual filling defects or stricture. - Of note, patient developed hemodynamically stable SVT during the procedure which broke with a dose of esmolol. Recommendation: - The patient will be observed post-procedure, until all discharge criteria are met. - Observe patient's clinical course following today's procedure with therapeutic intervention. - Watch for pancreatitis, bleeding, perforation, and cholangitis. - Continue trending liver enzymes as outpatient. - Repeat ERCP as needed for cholestasis. - Okay to resume anticoagulation tomorrow, 01/12. - In the unusual situation that you develop abdominal, bleeding or other significant problems in the days following this procedure please call [phone] and ask for my nurse, Sydnee Alas. After hours and evenings please call [phone] and speak to the GI fellow senior international tax manager. Please tell the fellow that Dr. Howard did your procedure and that you were instructed to have the fellow call me or the physician covering for me to discuss the management of your condition. If you have an urgent problem, please go to the nearest emergency room and have the ER doctor call my office during the day or the GI fellow after hours and weekends to arrange admission or transfer to our facility. Please bring this report with you if you go to the emergency room. Electronically signed by Wilfred Howard MD Wilfred Howard M.D. 01/12/2024 10:55:57 AM . Number of Addenda: 0 Note Initiated On: 01/12/2024 9:48 AM documented in this encounter Plan of Treatment Pending Results Name Type Priority Associated Diagnoses Date /Time FL ERCP Endo Imaging Procedure IP Routine History of biliary duct stent placement 01/12/2024 10:49 AM CDT documented as of this encounter Procedures Procedure Name Priority Date/Time Associated Diagnosis Comments FL ERCP BILIARY DUCT IP Routine 01/12/2024 12:02 PM CDT ERCP IP Routine 01/12/2024 10:49 AM CDT History of biliary duct stent placement ERCP IP Routine 01/12/2024 10:49 AM CDT History of biliary duct stent placement RAD S AND I BILIARY DUCTAL SYSTEM 01/12/2024 10:13 AM CDT History of biliary duct stent placement ERCP 01/12/2024 9:48 AM CDT documented in this encounter Results * FL ERCP Biliary Duct (01/12/2024 12:02 PM CDT) Narrative [facility] - 01/12/2024 12:02 PM CDT The images from this study are not interpreted by Radiology. ??Please refer to the physician's procedure / OR operative note. us Wilfred Howard MD IMG FLUOROSCOPY PROCEDURES Final Result [facility] * ERCP (01/12/2024 9:48 AM CDT) Anatomical Region Laterality Modality Other Narrative Procedure Note Wilfred Howard MD - 01/12/2024 9:48 AM CDT GI ENDOSCOPY [facility] Patient Name: Tiera Lobato Procedure Date: 01/12/2024 9:48 AM Date of : 1945 Admit Type: Outpatient Age: 78 Gender: Female Attending MD: Wilfred Howard M.D. Room: [facility] ENDOSCOPY ROOM 2 Note Status: Finalized Procedure: ERCP Indications: Biliary stent removal; History ofcholedocholithiasis s/p ERCP with biliary sphincterotomy and stent placement, here for stent removal Referring MD: Duong Choi M.D. Providers: Wilfred Rengarajan, M.D. Comorbidities See the other procedure note for documentation of comorbidities Medicines: Monitored Anesthesia Care Complications: Supraventricular tachycardia (SVT) which broke witha dose of esmolol (refer to Anesthesia notes). Estimated Blood Loss: Estimated blood loss: none. Procedure: The benefits, risks, and alternatives to theprocedure and sedation were discussed and informed consentwas obtained. The [id number] Duodenoscope wasintroduced through the mouth, and used to inject contrast into and used to inject contrast into the bile duct. Findings: A biliary stent and surgical clips were visible on the coil spring assembler film.The esophagus was successfully intubated under direct vision. The scopewas advanced to the major papilla in the descending duodenum without detailed examination of the pharynx, larynx and associatedstructures, and upper GI tract. The upper GI tract was grossly normal. The major papilla was adjacent to a diverticulum. One covered metal biliarystent originating in the biliary tree was emerging from the major papilla.The stent was visibly occluded and was subsequently removed using rat-toothed forceps. A biliary sphincterotomy had been performed. The sphincterotomy appeared open. A 0.025 inch x 450 cm angled Visiglide wire was passed into the biliary tree. The biliary tree was sweptwith a 15 mm balloon starting at the left intrahepatic duct(s) and right intrahepatic duct(s). Sludge was swept from the duct. A few stoneswere removed. No stones remained. Preparations were made forcholangiography using balloon occlusion technique. A balloon-tipped catheter was advanced into the left main hepatic duct. The balloon was inflated to15 mm in size. Contrast was then injected into the biliary tree. I personally interpreted the bile duct images. Ductal flow of contrastwas adequate. Image quality was adequate. Contrast extended to thehepatic ducts. The main bile duct was diffusely dilated to 15 mm with no evidence of residual filling defects or stricture. As such, nofurther biliary intervention was performed. Contrast was swept and aspirated from the duct and the endoscope was withdrawn from the patient. Impression: - The major papilla was adjacent to adiverticulum. - One visibly occluded stent from the biliary treewas seen in the major papilla and was subsequentlyremoved using a rat-toothed forceps. - Prior biliary sphincterotomy appeared open. - Sweeps of the biliary system yielded choledocholithiasis and sludge. Complete removalwas accomplished by balloon extraction. - Final occlusion cholangiogram with no residual filling defects or stricture. - Of note, patient developed hemodynamically stable SVT during the procedure which broke with a dose of esmolol. Recommendation: - The patient will be observed post-procedure,until all discharge criteria are met. - Observe patient's clinical course followingtoday's procedure with therapeutic intervention. - Watch for pancreatitis, bleeding, perforation,and cholangitis. - Continue trending liver enzymes as outpatient. - Repeat ERCP as needed for cholestasis. - Okay to resume anticoagulation tomorrow, 01/12. - In the unusual situation that you developabdominal, bleeding or other significant problems in the days following this procedure please call [phone] ask for my nurse, Sydnee Alas. After hours and evenings please call [phone] and speak to theGI fellow senior international tax manager. Please tell the fellow that Dr. Howard did your procedure and that you were instructed to have the fellow call me or thephysician covering for me to discuss the management of your condition. If you have an urgent problem, please goto the nearest emergency room and have the ER doctorcall my office during the day or the GI fellow afterhours and weekends to arrange admission or transfer toour facility. Please bring this report with you if yougo to the emergency room. Electronically signed by Wilfred Howard MD Wilfred Howard M.D. 01/12/2024 10:55:57 AM . Number of Addenda: 0 Note Initiated On: 01/12/2024 9:48 AM Wilfred Howard MD ENDOSCOPY PROCEDURES Final Result documented in this encounter Visit Diagnoses Diagnosis History of biliary duct stent placement- Primary History of biliary duct stent placement documented in this encounter Admitting Diagnoses Diagnosis History of biliary duct stent placement documented in this encounter Administered Medications Inactive Administered Medications - up to 3 most recent administrations Medication Order MAR Action Action Date Dose Rate Site iothalamate meglumine (CONRAY) 60 % injection As needed, Starting on Fri01/12/24 at 1029, Intra-Op Given 01/12/2024 10:29 AM CDT 30 mL Lactated Ringer's (LR) infusion 30 mL/hr, intravenous, Continuous, Starting on Fri01/12/24 at 1030 New Bag 01/12/2024 10:13 AM CDT ondansetron (ZOFRAN) injection 4 mg 4 mg, intravenous, Administer over 2 Minutes, Every 6 hours PRN, nausea, vomiting, Starting on Fri01/12/24 at 0955, Pre-Procedure (GI) Given 01/12/2024 11:12 AM CDT 4 mg sodium chloride 0.9% flush 0.5-20 mL 0.5-20 mL, intra-catheter, As needed, line care, Starting on Fri01/12/24 at 0955, Pre-Procedure (GI), Flush volume based on line type and size. Flush before and after each use. , Indications: FlushingIndications:Flushing documented in this encounter Active and Recently Administered Medications Times are shown in CDT. Continuous Medication Order 01/10/2024 01/11/2024 01/12/2024 Lactated Ringer's (LR) infusion 30 mL/hr, intravenous, Continuous, Starting on Fri01/12/24 at 1030 1013 (New Bag - Prov ider: Antonio Parra CRNA)1553 (Due: Stopped) PRN Medication Order 01/10/2024 01/11/2024 01/12/2024 iothalamate meglumine (CONRAY) 60 % injection (CANCELED) As needed, Starting on Fri01/12/24 at 1029, Intra-Op 1029 (Given - Provid er: Briseyda Maher RN) ondansetron (ZOFRAN) injection 4 mg 4 mg, intravenous, Administer over 2 Minutes, Every 6 hours PRN, nausea, vomiting, Starting on Fri01/12/24 at 0955, Pre-Procedure (GI) 1112 (Given - Provid er: Lore Gale RN) sodium chloride 0.9% flush 0.5-20 mL 0.5-20 mL, intra-catheter, As needed, line care, Starting on Fri01/12/24 at 0955, Pre-Procedure (GI), Flush volume based on line type and size. Flush before and after each use. , Indications: Flushing documented in this encounter Orders Medications Ordered That Juvenal ht Not Have Been Administered Count Last Ordered Date First Ordered Date Lactated Ringer's (LR) infusion 4 sodium chloride 0.9% flush 0.5-20 mL 12/15 documented in this encounter Care Teams Funds Development Director Relationship Specialty Start Date End Date Cristian Ling MD [address] [place] [address] PCP - General 10/16/16 documented as of this encounter
--- OUTSIDE RECORDS SUMMARY | 2024-06-12 03:53 | XMS_ITS | Encounter Summary ---
Author Organization [facility] Healthcare Address [address] [place] [address] Care Team Providers Care Special Events Manager Name Role Phone Cristian Ling MD Primary Care Prov ider Belinda Quigley RN DOCUMENTATION Unavailable [phone] Reason for Visit * Reason Comments Chart Review Encounter Details Date Type Department Care Team (Late st Contact Info) Description 12/07/2023 SHOP/CHAP Subsequent Outreach [facility] OP CASE MANAGEMENT [address] [place] [id number] Lena Cho, RN DOCUMENTATION [address] [facility] ([facility]) Mailstop [phone] [place] [address] Social History Tobacco Use Types Packs/Day Years Used Date Smoking Tobacco: Never Passive Smoke Exposure: Current Smokeless Tobacco: Never [facility] Utilities Answer Date Recorded In the past 12 months has [facility] [employer], gas, oil, or water [employer] threatened to shut off services in your [...] week 12/04/2023 How often do you attend hoahaoism or methodist serv ices? Never 12/04/2023 Do you belong to any clubs o r organizations such as hoahaoism groups, unions, fraternal or athletic groups, or [...] staff should administer the PHQ-9) 0 09/28/2020 [facility] [place] of Occupat ional Health - Occupational Stress [...] any time in the past 12 m [facility], were you homeless or living in a senior living (including now)? No 12/04/2023 Personal Safety Answer Date Recorded Have you ever been in or are you currently in a harmful physical or emotional relationship or is someone making you feel afraid or unsafe? 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 Patient presented to ED with complaint of of nausea, vomiting and diarrhea over the past 2 weeks and has been assigned ED acuity of 2. OCM reviewed the record and contacted ED PHILIP Torrez and ED MD Caceres to discuss patient's care and involvement with SHOP. OCM provided these team members with details about the patient's transition of care, including She has a PCP appointment with Dr. Pollard 12/10. We talked with the PCP this week and they are workingto arrange home PT for her as well. Pt lives in a [facility] and they support the pt with medication compliance. . Based on the Pt's current situation the following plan was identified: Discharge home with outpatient support. Contact Belinda Quigley [phone] as additional needs are identified. Lena Cho LCSW documented in this encounter Plan of Treatment Not on file documented as of this encounter Visit Diagnoses Not on filedocumented in this encounter Care Teams Special Events Manager Relationship Specialty Start Date End Date Cristian Lnig MD [address] [place] [address] PCP - General 10/16/16 Belinda Quigley LCSW [address] [facility] ([facility]) Mailstop [phone] [place] [address] [facility] Outpatient Lace Finisher 12/04/23 12/30/23 documented as of this encounter
--- OUTSIDE RECORDS SUMMARY | 2024-06-12 03:53 | XMS_ITS | Encounter Summary ---
Author Organization [facility] Address [address] [place] [address] Phone Care Team Providers Care Canopy Inspector Name Role Phone Cristian Ling MD Primary Care Prov ider Belinda Quigley DIRECTOR OF LOGISTICS Unavailable [phone] Reason for Visit * Reason Onset Date Comments Vertigo referral 12/17/2023 Encounter Details Date Type Department Care Team (Late st Contact Info) Description 12/17/2023 Telephone [facility] Cardiology [address] [facility] Advanced Medicine 8th [place] [address] [place] [address] Sami Stafford MD [address] [address] Vertigo referral Social History Tobacco Use Types Packs/Day Years Used Date Smoking Tobacco: Never Passive Smoke Exposure: Current Smokeless Tobacco: Never [facility] Utilities Answer Date Recorded In the [...] week 12/04/2023 How often do you attend religious or zoroastrianism serv ices? Never 12/04/2023 Do you belong to any clubs o r organizations such as religious groups, unions, fraternal or athletic groups, or [...] staff should administer the PHQ-9) 0 09/28/2020 [facility] [place] of Occupat ional Health - Occupational Stress [...] any time in the past 12 m [facility], were you homeless or living in a care home (including now)? No 12/04/2023 Personal Safety Answer Date Recorded Have you ever been in or are you currently in a harmful physical or emotional relationship or is someone making you feel afraid or unsafe? 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 documented in this encounter Plan of Treatment Not on file documented as of this encounter Visit Diagnoses Not on filedocumented in this encounter Care Teams Canopy Inspector Relationship Specialty Start Date End Date Critsian Ling MD [address] [place] [address] PCP - General 10/16/16 Belinda Quigley, DIRECTOR OF LOGISTICS [address] [facility] ([facility]) Mailstop [phone] [place] [address] SHOP Outpatient Hot Billet Shear Operator 12/04/23 12/30/23 documented as of this encounter
--- OUTSIDE RECORDS SUMMARY | 2024-06-12 03:53 | XMS_ITS | Encounter Summary ---
Author Organization [facility] Address [address] [place] [address] Phone Care Team Providers Care Floor Person Name Role Phone Cristian Ling MD Primary Care Prov ider Encounter Details Date Type Department Care Team (Late st Contact Info) Description 01/28/2024 Telephone [facility] Cardiology [address] [facility] Advanced Medicine 8th [place] [address] [place] [address] Sami Stafford MD [address] [facility] [address] [place] [address] Social History Tobacco Use Types Packs/Day Years Used Date Smoking Tobacco: Never Passive Smoke Exposure: Current Smokeless Tobacco: Never [facility] Utilities Answer Date Recorded In the past 12 months has [employer], gas, oil, or water [employer] threatened to shut off services in your [...] How often do you attend hoahaoism or mormonism serv ices? Never 12/04/2023 Do you belong [...] staff should administer the PHQ-9) 0 09/28/2020 [facility] of Occupat ional Health - Occupational Stress [...] in the past 12 m [facility], were you homeless or living in a snf (including now)? No 12/04/2023 Personal Safety Answer Date Recorded Have you ever been in or are you currently in a harmful physical or emotional relationship or is someone making you feel afraid or unsafe? 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 * Telephone Encounter - Viki Faith - 01/28/2024 9:48 AM CDT PT REQ CALL BACK REGARDING WHEN HER BLOOD PRESSURE SHOULD BE TAKEN. PLS CALL documented in this encounter Plan of Treatment Not on file documented as of this encounter Visit Diagnoses Not on filedocumented in this encounter Care Teams Floor Person Relationship Specialty Start Date End Date Cristian Ling MD [address] [place] [address] PCP - General 10/16/16 documented as of this encounter
--- OUTSIDE RECORDS SUMMARY | 2024-06-12 03:53 | XMS_ITS | Encounter Summary ---
Author Organization [facility] Healthcare Address [address] [place] [address] Care Team Providers Care Net Lead Architect Name Role Phone Cristian Ling MD Primary Care Prov ider Reason for Visit * Auth/Cert Specialty Diagnoses / Procedures Referred By Paula cardona Referred To Contact Diagnoses History of biliary duct stent placement History of biliary duct stent placement [Z98.890] Procedures [place] ERCP REMOVE FOREIGN BODY/STENT BILIARY/PANC DUCT ERCP- stent removal Referral ID Status Reason Start Date Expiration Date Visits Re quested Visits Authorized [id number] 1 1 Encounter Details Date Type Department Care Team (Latest Contact Info) Description 01/12/2024 9:24 AM CDT - 01/12/2024 11:52 AM CDT Hospital Encounter [facility] Digestive Disease [place] [address] [facility] [address] [place] [address] Heydi Fenton MD [address] [place] [address] Wilfred Howard MD [address] [place] [address] History of biliary duct stent placement Discharge Disposition: Discharge to home or self care Social History Tobacco Use Types Packs/Day Years Used Date Smoking Tobacco: Never Passive Smoke Exposure: Current Smokeless Tobacco: Never [facility] Utilities Answer Date Recorded In the past 12 months has e [employer], [employer], oil, or water [employer] threatened to shut off services in your [...] week 12/04/2023 How often do you attend restorationism or yazidism serv ices? 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 Gender Identity Female 02/07/2021 4:33 PM CDT [...] as teenager - had phlebitis History of AL (myocardial infarction) 2012 History of vertebral fracture 2017 HTN (hypertension) IBS (irritable bowel syndrome) Vertigo Past Surgical History: Procedure Laterality Date CARDIOVERSION 03/2023 COLON SURGERY 1993 Repair burst colon CORONARY ARTERY BYPASS GRAFT 2013 Double by-pass - [facility] FLUORO GUIDED INJECTION HIP RIGHT Right 05/16/2022 FLUORO GUIDED INJECTION HIP RIGHT Right 08/15/2022 FLUORO GUIDED INJECTION HIP RIGHT Right 12/10/2022 FLUORO GUIDED INJECTION HIP RIGHT Right 05/13/[address] James ([place], [place]) TOTAL KNEE ARTHROPLASTY Right 2017 Social History Tobacco Use Smoking status: Never [...] BY MOUTH ONE TIME PER WEEK 11/09/18 ProviderFidel MD amiodarone (PACERONE) 200 mg tablet Take 1 [...] topically 3 (three) times a day 03/21/23 Natasha Baker MD PhD ezetimibe (ZETIA) 10 mg [...] Female Attending MD: Wilfred Howard M.D. Room: [facility] ENDOSCOPY ROOM 2 Note Status: Finalized Procedure: [...] discussed and informed consent was obtained. The [id number] Duodenoscope was introduced through the mouth, and used to inject contrast into and used to inject contrast into the bile duct. Findings: A biliary stent and surgical clips were visible on the measuring machine tender film. The esophagus was successfully intubated under [...] the days following this procedure please call [phone] and ask for my nurse, Sydnee Alas. After hours and evenings please call [phone] and speak to the GI fellow wind turbine controls engineer. Please tell the fellow that Dr. Howard [...] Biliary Duct (01/12/2024 12:02 PM CDT) Narrative RAD_PACS_[facility] - 01/12/2024 12:02 PM CDT The images from this study are not interpreted by Radiology. ??Please refer to the physician's procedure / OR operative note. us Wilfred Howard MD IMG FLUOROSCOPY PROCEDURES Final Result RAD_PACS_[facility] * ERCP (01/12/2024 9:48 AM CDT) Anatomical Region Laterality Modality Other Narrative Procedure Note Wilfred Howard MD - 01/12/2024 9:48 AM CDT [facility] ENDOSCOPY [facility] Patient Name: Tiera Lobato Procedure Date: 01/12/2024 9:48 AM Date of : 1945 Admit Type: Outpatient Age: 78 Gender: Female Attending MD: Wilfred Howard M.D. Room: [facility] ENDOSCOPY ROOM 2 Note Status: Finalized Procedure: [...] were discussed and informed consentwas obtained. The [id number] Duodenoscope wasintroduced through the mouth, and used to inject contrast into and used to inject contrast into the bile duct. Findings: A biliary stent and surgical clips were visible on the measuring machine tender film.The esophagus was successfully intubated under direct [...] the days following this procedure please call [phone] ask for my nurse, Sydnee Alas. After hours and evenings please call [phone] and speak to theGI fellow wind turbine controls engineer. Please tell the fellow that Dr. Howard [...] 0 Note Initiated On: 01/12/2024 9:48 AM us Wilfred Howard MD ENDOSCOPY PROCEDURES Final Result documented in this encounter Visit Diagnoses Diagnosis History of biliary duct stent placement- Primary documented in this encounter Admitting Diagnoses Diagnosis History of biliary duct stent placement documented in this encounter Administered Medications Inactive Administered Medications - up to 3 most recent administrations Medication Order MAR Action Action Date Dose Rate Site Lactated Ringer's (LR) infusion 30 mL/hr, intravenous, Continuous, Starting on 01/12/24 at 1030 New Bag 01/12/2024 10:13 AM [...] 1013 (New Bag - Prov ider: Antonio Parra, ELDER ASSISTANT)1553 (Due: Stopped) PRN Medication Order 01/10/2024 01/11/2024 01/12/2024 iothalamate meglumine (CONRAY) 60 % injection (CANCELED) As needed, Starting on Fri01/12/24 at 1029, Intra-Op 1029 (Given - Provid er: Briseyda Maher, PHLIIP) ondansetron (ZOFRAN) injection 4 mg 4 mg, intravenous, Administer over 2 Minutes, Every 6 hours PRN, nausea, vomiting, Starting on Fri01/12/24 at 0955, Pre-Procedure (GI) 1112 (Given - Provid er: Lore Gale, PHILIP) sodium chloride 0.9% flush 0.5-20 mL 0.5-20 mL, intra-catheter, As needed, line care, Starting on Fri01/12/24 at 0955, Pre-Procedure (GI), Flush volume based on line type and size. Flush before and after each use. , Indications: Flushing documented in this encounter Orders Medications Ordered That Juvenal ht Not Have Been Administered Count Last Ordered Date First Ordered Date iothalamate meglumine (CONRA Y) 60 % injection 1 01/12/2024 Lactated Ringer's (LR) infusion 1 sodium chloride 0.9% flush 0.5-20 mL 1 12/15 documented in this encounter Care Teams Net Lead Architect Relationship Specialty Start Date End Date Cristian Ling MD [address] [place] [address] PCP - General 10/16/16 documented as of this encounter
--- OUTSIDE RECORDS SUMMARY | 2024-06-12 03:53 | XMS_ITS | Encounter Summary ---
Author Organization [facility] Healthcare Address [address] [place] [address] Care Team Providers Care Probation And Patrol Agent Name Role Phone Cristian Ling MD Primary Care Prov ider Belinda Quigley SHIRT MAKER Unavailable [phone] Reason for Visit * Reason Comments Successfully Completed Encounter Details Date Type Department Care Team (Late st Contact Info) Description 12/10/2023 SHOP/CHAP Subsequent Outreach [facility] OP CASE MANAGEMENT [address] [place] [phone] Belinda Quigley, SHIRT MAKER [address] [facility] ([facility]) Mailstop [phone] [place] [address] Social History Tobacco Use Types Packs/Day Years Used Date Smoking Tobacco: Never Passive Smoke Exposure: Current Smokeless Tobacco: Never [facility] Utilities Answer Date Recorded In the past 12 months has [facility] [employer], gas, oil, or water [employer] threatened to shut off services in your [...] week 12/04/2023 How often do you attend latter day or denominational serv ices? Never 12/04/2023 Do you belong to any clubs o r organizations such as latter day groups, unions, fraternal or athletic groups, or [...] staff should administer the PHQ-9) 0 09/28/2020 [facility] [place] of Occupat ional Health - Occupational Stress [...] any time in the past 12 m [facility], were you homeless or living in a usp (including now)? No 12/04/2023 Personal Safety Answer Date Recorded Have you ever been in or are you currently in a harmful physical or emotional relationship or is someone making you feel afraid or unsafe? 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 Pt reports she has not been able to follow up with the nurse Ivone at her facility. OCM called [facility] and had to leave a message for Cheryl. Pardo to call Dr. Ling's office today to follow up on the home health referral. OCM reminded pt about her appointment with Dr. Ling tomorrow. Pt reports she is not planning to go since she cannot get around very well. OCM encouraged pt to ask if her appointment can be changed to telehealth. OCM notified pt that Dr. Stafford reviewed her chart and indicated that she can just keep her appointment in February. Pt does not have any other questions at this time. OCM will continue to follow. documented in this encounter Plan of Treatment Not on file documented as of this encounter Visit Diagnoses Not on filedocumented in this encounter Care Teams Probation And Patrol Agent Relationship Specialty Start Date End Date Cristian Ling MD [address] [place] [address] PCP - General 10/16/16 Belinda Quigley LCSW [address] [facility] ([facility]) Mailstop [phone] [place] [address] SHOP Outpatient Program Schedule Clerk 12/04/23 12/30/23 documented as of this encounter
--- OUTSIDE RECORDS SUMMARY | 2024-06-12 03:53 | XMS_ITS | Encounter Summary ---
Author Organization [facility] Healthcare Address [address] [place] [address] Care Team Providers Care Baseboard Heating Installer Name Role Phone Cristian Ling MD Primary Care Prov ider Belinda Quigley BRAND SALES MANAGER Unavailable [phone] Reason for Visit * Reason Comments Successfully Completed Encounter Details Date Type Department Care Team (Late st Contact Info) Description 12/24/2023 SHOP/CHAP Subsequent Outreach [facility] OP CASE MANAGEMENT [address] [place] [phone] Belinda Quigley, BRAND SALES MANAGER [address] [facility] ([facility]) Mailstop [phone] [place] [address] Social History Tobacco Use Types Packs/Day Years Used Date Smoking Tobacco: Never Passive Smoke Exposure: Current Smokeless Tobacco: Never [facility] Utilities Answer Date Recorded In the past 12 months has [facility] [employer], gas, oil, or water [employer] threatened to shut off services in your [...] week 12/04/2023 How often do you attend scientology or evangelical serv ices? Never 12/04/2023 Do you belong to any clubs o r organizations such as scientology groups, unions, fraternal or athletic groups, or [...] staff should administer the PHQ-9) 0 09/28/2020 [facility] [place] of Occupat ional Health - Occupational Stress [...] any time in the past 12 m [facility], were you homeless or living in a mcc (including now)? No 12/04/2023 Personal Safety Answer Date Recorded Have you ever been in or are you currently in a harmful physical or emotional relationship or is someone making you feel afraid or unsafe? 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 Pt reports she has not started receiving home health services yet.Pt reports her PCP was sending over a prescription to her [facility]. Pt is not sure of the current statusof her home health referral. The nurse Ivone at her facility is working on finding a home health agency. OCM explained that they have to go through her [employer] plan as her Medicaid plan does not cover home health therapy services. OCM called and left a voicemail for the nurse Ivone at pt's facility. We discussed the hematoma on pt's leg. OCM reviewed pt's chart and noted that she can loosen the santosh bandage if it is uncomfortable and that she can apply ice for swelling. Pt reports shehas been loosening the santosh bandage. She was not aware that she should apply ice for swelling. She has been applying heat but will switch to ice. OCM notified pt that ENT has been trying to reach her.Pt reports she is not concerned about scheduling an appointment with ENT at this time as she has not been experiencing vertigo. Pt does not have any other questions at this time. OCM will continue tofollow. documented in this encounter Plan of Treatment Not on file documented as of this encounter Visit Diagnoses Not on filedocumented in this encounter Care Teams Baseboard Heating Installer Relationship Specialty Start Date End Date Cristian Ling MD [address] [place] [address] PCP - General 10/16/16 Belinda Quigley LCSW [address] [facility] ([facility]) Mailstop [phone] [place] [address] SHOP Outpatient Codifier 12/04/23 12/30/23 documented as of this encounter
--- OUTSIDE RECORDS SUMMARY | 2024-06-12 03:53 | XMS_ITS | Encounter Summary ---
Author Organization [facility] Healthcare Address [address] [place] [address] Care Team Providers Care Bird Sitter Name Role Phone Cristian Ling MD Primary Care Prov ider Reason for Visit * Auth/Cert Specialty Diagnoses / Procedures Referred By Paula cardona Referred To Contact Diagnoses History of biliary duct stent placement History of biliary duct stent placement [Z98.890] Procedures AL ERCP REMOVE FOREIGN BODY/STENT BILIARY/PANC DUCT ERCP- stent removal Referral ID Status Reason Start Date Expiration Date Visits Re quested Visits Authorized [id number] 1 1 Encounter Details Date Type Department Care Team (Late st Contact Info) Description 01/12/2024 10:15 AM CDT Anesthesia Event [facility] Disease [place] [address] [facility] [address] [place] [address] Don Loaiza MD [address] [place] [address] Antonio Parra CRNA [address] [place] [address] Anesthesia Record Procedure Summary Procedure Name Responsible Anesthesiologist Anesthesia Start Time Anesthesia Stop Time ENDO ADD ON ENDOSCOPIC RETROGRADE CHOLANGIOPANCREATOGRAPHY REMOVAL STONES Don Loaiza MD 01/12/24 1015 01/12/24 1054 Events Date Time Event Comment 01/12/2024 1005 1013 In Room 1015 An Start 1015 An Start Data 1019 An Data Art 1020 Start Supplemental O2 1023 Patient Positioned Prone 1023 Bite Block Placed 1023 An Induction The patient was reevaluated immediately before moderate or deep sedation use and before anesthesia induction. 1026 Proc Start 1027 Anesthesia Ready 1040 Proc Fin 1049 Out of Room 1049 an stop data 1054 Handoff to RN I completed my handoff to the receiving nurse during which we: 1. Patient identified 2. Responsible provider identified 3. Pertinent medical history reviewed 4. Procedure type and surgical course discussed 5. Intraoperative anesthetic management and any significant issues discussed 6. Expectations and concerns for postop period discussed 7. Questions solicited from receiving nurse 8. Patient disposition at the time of handoff: PACU 1054 An Stop Meds Name Total lidocaine (cardiac) syringe 2 % 60 mg propofol 100 mg propofol 188.06 mg esmolol 50 mg Lactated Ringer's (LR) infusion 0 mL * Agents Name O2% N2O O2 N2O Air * Blood No blood administrations on file. Lines, Drains, and Airways Type Details Placement Removal Peripheral IV Placement Date: 12/15 03/09; Placement Time: 1012; Catheter Size: 20 G; Orientation: Posterior, Right; Location: Wrist; Inserted by: Wilner Scott RN; Insertion Attempts: 1; Patient Tolerance: Tolerated well; Removal Date: 01/12/24; Removal Time: 1151 01/12/24 1012 by Briseyda Maher RN 01/12/24 1151 by Lore Gale RN documented in this encounter Social History Tobacco Use Types Packs/Day Years Used Date Smoking Tobacco: Never Passive Smoke Exposure: Current Smokeless Tobacco: Never [employer] Utilities Answer Date Recorded In the past 12 months has [employer], oil, or water [employer] threatened to shut off services in your [...] week 12/04/2023 How often do you attend anglican or latter-day serv ices? Never 12/04/2023 Do you belong to any clubs o r organizations such as anglican groups, unions, fraternal or athletic groups, or [...] staff should administer the PHQ-9) 0 09/28/2020 [facility] [place] [facility] - Occupational Stress [...] were you homeless or living in a halfway (including now)? No 12/04/2023 Personal Safety Answer Date Recorded Have you ever been in or are you currently in a harmful physical or emotional relationship or is someone making you feel afraid or unsafe? 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 Gender Identity Female 02/07/2021 4:33 PM CDT Sexual Orientation Straight 02/07/2021 4: 33 PM CDT documented as of this encounter OR Notes * Anesthesia Postprocedure Evaluation - Kaz Valentino MD - 01/12/2024 11:20 AM CDT Patient: Tiera Lobato Procedure Summary Date: 01/12/24 Room / Location: [facility] ROOM 2 / [facility] Anesthesia Start: 1015 Anesthesia Stop: 1054 Procedures: ENDO ADD ON ENDOSCOPIC RETROGRADE CHOLANGIOPANCREATOGRAPHY REMOVAL STONES RAD S AND I BILIARY DUCTAL SYSTEM ENDO ENDOSCOPIC RETROGRADE CHOLANGIOPANCREATOGRAPHY WITH REMOVAL FOREIGN BODY/STENT Diagnosis: History of biliary duct stent placement (History of biliary duct stent placement [Z98.890]) Providers: Wilfred Howard MD Responsible Provider: Don Loaiza MD Anesthesia Type: MAC ASA Status: 3 Anesthesia Type: MAC Last vitals BP 136/65 (BP Location: Left arm, Patient Position: Lying) Pulse 57 Temp 36 ??C (96.8 ??F) (Temporal) Resp 11 SpO2 100% Anesthesia Post Evaluation Patient location during evaluation: PACU Patient participation: complete - patient participated Level of consciousness: fully awake Pain management: satisfactory to patient Airway patency: adequate Cardiovascular status: acceptable and hemodynamically stable Respiratory status: acceptable Hydration status: acceptable Pt is: normothermic Nausea/Vomiting status: none No notable events documented. * Anesthesia Preprocedure Evaluation - Don Loaiza MD - 01/12/2024 10:05 AM CDT Images from the original note were not included. Anesthesia Evaluation Tiera Lobato is a 78 y.o. female ERCP- stent removal Pre-Op Diagnosis Codes: * History of biliary duct stent placement [Z98.890] Patient Active Problem List Diagnosis Date Noted Facial abscess 12/07/2023 History of biliary duct stent placement 12/04/2023 Hematoma of right lower leg 11/29/2023 Chronic kidney disease (CKD), stage III (moderate) (HCC) 11/29/2023 Pancreatitis 11/29/2023 Acute hepatitis 11/24/2023 Choledocholithiasis 11/24/2023 Iron deficiency anemia, unspecified 10/05/2023 NSVT (nonsustained ventricular tachycardia) (HCC) 08/20/2023 A-fib (CMS/HCC) (HCC) 02/17/2023 Atrial fibrillation (CMS/HCC) (HCC) 01/13/2023 Apical variant hypertrophic cardiomyopathy (HCC) 12/05/2022 Paroxysmal atrial fibrillation (CMS/HCC) (HCC) 12/05/2022 Right hip pain 11/22/2021 Other osteoporosis without current pathological fracture 03/07/2021 Lumbar stenosis with neurogenic claudication 09/29/2020 History of [place] (myocardial infarction) 12/10/2017 Primary hypertension 11/06/2012 Coronary artery disease involving [place] coronary artery of [place] heart without angina pectoris 09/23/2012 Hx of CABG 09/23/2012 Past Medical History: Diagnosis Date Acid reflux Heart murmur High cholesterol History of blood clots 1960s in leg as teenager - had phlebitis History of [place] (myocardial infarction) 2012 History of vertebral fracture 2017 HTN (hypertension) IBS (irritable bowel syndrome) Vertigo Past Surgical History: Procedure Laterality Date CARDIOVERSION 03/2023 COLON SURGERY 1992 Repair burst colon CORONARY ARTERY BYPASS GRAFT 2012 Double by-pass - [facility] FLUORO GUIDED INJECTION HIP RIGHT Right 05/16/2022 FLUORO GUIDED INJECTION HIP RIGHT Right 08/15/2022 FLUORO GUIDED INJECTION HIP RIGHT Right 12/10/2022 FLUORO GUIDED INJECTION HIP RIGHT Right 05/13/[address] James ([place], [place]) TOTAL KNEE ARTHROPLASTY Right 2018 OB History No obstetric history on file. Allergies Allergen Reactions Codeine Hives and Shortness of breath Tramadol Shortness of breath and Unknown Latex Itching Milk Nausea & Vomiting Taking? Last Dose Start Date End Date Provider acetaminophen 500 mg capsule -- 03/21/23 -- Te Baker MD PhD Take 2 capsules (1,000 mg total) by mouth 3 (three) times a day alendronate (FOSAMAX) 70 mg tablet -- 11/09/18 -- ProviderFidel MD amiodarone (PACERONE) 200 mg tablet -- 08/21/23 -- Sami Stafford MD Take 1 tablet (200 mg total) by mouth daily Notes: Decreased dose. apixaban (Eliquis) 5 mg tablet () -- 03/21/23 11/25/23 Te Baker MD PhD Take 1 tablet (5 mg total) by mouth 2 (two) times a day atorvastatin (LIPITOR) 80 mg tablet -- 03/21/23 03/20/24 Te Baker MD PhD Take 1 tablet (80 mg total) by mouth nightly calcium carbonate-vitamin D3 1,250mg (500mg elemental) - 5 mcg (200 units) per tablet -- 03/21/23 03/20/24 Te Baker MD PhD Take 1 tablet by mouth daily diclofenac sodium (VOLTAREN) 1 % gel -- 03/21/23 -- Te Baker MD PhD Apply 2 g topically 3 (three) times a day ezetimibe (ZETIA) 10 mg tablet -- 07/30/21 -- Sami Stafford MD TAKE 1 TABLET BY MOUTH EVERY DAY linaCLOtide (Linzess) 145 mcg capsule () -- 03/21/23 11/25/23 Te Baker MD PhD Take 1 capsule (145 mcg total) by mouth daily before breakfast loperamide (IMODIUM) 2 mg capsule -- 12/07/23 -- Jayson Caceres MD Take 1 capsule orally as needed after each loose stool. (Do not exceed 8 capsules/day) metoprolol XL (TOPROL-XL) 25 mg extended release tablet -- 01/22/23 -- Sami Stafford MD Take 1 tablet (25 mg total) by mouth daily Notes: Decreased 01/22/23 midodrine (PROAMATINE) 5 mg tablet -- 10/20/23 -- Sami Stafford MD Take 1 tablet (5 mg total) by mouth 3 (three) times a day ondansetron (ZOFRAN) 4 mg tablet -- -- -- Fidel Carranza MD pantoprazole DR (PROTONIX) 40 mg EC tablet -- 03/21/23 03/20/24 Te Baker MD PhD Take 1 tablet (40 mg total) by mouth daily prochlorperazine (COMPAZINE) 5 mg tablet -- 12/03/23 -- Elio Lewis MD Take 1 tablet (5 mg total) by mouth every 6 (six) hours as needed for nausea or vomiting sertraline (ZOLOFT) 100 mg tablet -- 11/09/19 -- Fidel Carranza MD Current Facility-Administered Medications: Lactated Ringer's (LR) infusion, 30 mL/hr, intravenous, Continuous ondansetron (ZOFRAN) injection 4 mg, 4 mg, intravenous, Q6H PRN sodium chloride 0.9% flush 0.5-20 mL, 0.5-20 mL, intra-catheter, PRN Social History Tobacco Use Smoking Status Never Passive exposure: Current Smokeless Tobacco Never Alcohol Use: Not At Risk (11/26/2023) AUDIT-C Frequency of Alcohol Consumption: Never Average Number of Drinks: Patient does not drink Frequency of Binge Drinking: Never Substance and Sexual Activity Drug Use Yes Types: Medical marijuana Comment: Tablets - tid Family History Problem Relation Age of Onset Prostate cancer Father Stroke Child Hypertension Child There were no vitals filed for this visit. PT: No results found for requested labs within last 30 days. INR: No results found for requested labs within last 30 days. APTT: No results found for requested labs within last 30 days. Hgb A1C: No results found for requested labs within last 30 days. CBC RBC: No results found for requested labs within last 30 days. RDW: No results found for requested labs within last 30 days. MCHC: No results found for requested labs within last 30 days. MCH: No results found for requested labs within last 30 days. MCV: No results found for requested labs within last 30 days. Hct: No results found for requested labs within last 30 days. Hgb: No results found for requested labs within last 30 days. WBC: No results found for requested labs within last 30 days. MPV: No results found for requested labs within last 30 days. Platelets: No results found for requested labs within last 30 days. RDW CV: No results found for requested labs within last 30 days. RDW Sd: No results found for requested labs within last 30 days. BMP Glucose: No results found for requested labs within last 30 days. Calcium: No results found for requested labs within last 30 days. Sodium: No results found for requested labs within last 30 days. Potassium: No results found for requested labs within last 30 days. CO2: No results found for requested labs within last 30 days. Chloride: No results found for requested labs within last 30 days. BUN: No results found for requested labs within last 30 days. Creatinine: No results found for requested labs within last 30 days. DOS Physical Exam Medical history, medications, and allergies reviewed. Attestation: With today's edits, I endorse the findings of the procedural assessment dated: 01/12/2024. Airway Exam: Mallampati: III Cervical ROM: FROM TM distance: >4 Cardiovascular Exam: Rate: regular Rhythm: regular Negative for Murmur Pulmonary Exam: LCTA, bilat EENT Exam: trachea midline Dental Exam: Missing, upper dentures and lower dentures Current state: Patient's current state is cooperative. Anesthesia Plan ASA 3 My patient is approved for the Anesthesia Controlled Medication protocol when under care of a AUDIO VIDEO MECHANIC Planned anesthesia: MAC Informed Consent: Discussed plan with AUDIO VIDEO MECHANIC. Anesthesia plan and risks discussed with patient. Consent and Attending signature: I and/or my designee have discussed the anesthesia plan, benefits, possible alternatives, parental presence at time of induction (if indicated), and clinically relevant risks that may include dental injury, unintentional awareness, and/or other complications. The patient and/or parent/legal guardian understand, and agree to proceed. All questions answered. documented in this encounter Plan of Treatment Not on file documented as of this encounter Visit Diagnoses Not on filedocumented in this encounter Administered Medications Inactive Administered Medications - up to 3 most recent administrations Medication Order MAR Action Action Date Dose Rate Site esmoloL (BREVIBLOC) injection intravenous, Administer over 1 Minutes, As needed, Starting on Fri01/12/24 at 1036, Anesthesia Intra-op Given 01/12/2024 10:37 AM CDT 20 mg Given 01/12/2024 10:36 AM CDT 30 mg Lactated Ringer's (LR) infusion 30 mL/hr, intravenous, Continuous, Starting on Fri01/12/24 at 1030 New Bag 01/12/2024 10:13 AM CDT lidocaine (cardiac) (XYLOCAINE) preservative free injection intravenous, As needed, Starting on Fri01/12/24 at 1023, Anesthesia Intra-op, Indications: Ventricular ArrhythmiasIndications:Ventricular Arrhythmias Given 01/12/2024 10:23 AM CDT 60 mg propofoL (DIPRIVAN) 10 mg/mL IV intravenous, As needed, Starting on Fri01/12/24 at 1023, Anesthesia Intra-op Given 01/12/2024 10:25 AM CDT 50 mg Given 01/12/2024 10:23 AM CDT 50 mg propofoL (DIPRIVAN) 10 mg/mL IV intravenous, Continuous PRN, Starting on Fri01/12/24 at 1023, Anesthesia Intra-op New Bag 01/12/2024 10:23 AM CDT 180 mcg/kg/min 70.524 mL/hr documented in this encounter Care Teams Bird Sitter Relationship Specialty Start Date End Date Cristian Ling MD [address] [place] [address] PCP - General 10/16/16 documented as of this encounter
--- OUTSIDE RECORDS SUMMARY | 2024-06-12 03:53 | XMS_ITS | Encounter Summary ---
Author Organization [facility] Address [address] [place] [address] Phone Care Team Providers Care Whitewasher Name Role Phone Cristian Ling MD Primary Care Prov ider Reason for Referral * Diagnostic Imaging (Routine) - Closed Specialty Diagnoses / Procedures Referred By Contac t Referred To Contact Diagnoses Right hip pain Primary osteoarthritis of right hip Procedures FL Fluoro Guided Injection Hip Right Jamari Rodríguez MD [address] [facility] [address] [place] [address] Phone: tel: fax: [facility] [address] [place] [address] Referral ID Status Reason Start Date Expiration Date Visits Re quested Visits Authorized [id number] Closed 02/23/2024 03/24/2025 1 1 Reason for Visit * Reason Comments Pain Pain * Consultation (Routine) - Authorized Specialty Diagnoses / Procedures Referred By Contac t Referred To Contact Orthopedic Surgery Diagnoses Right hip pain Cristian Ling MD [address] [place] [address] Phone: tel: fax: [facility] (All Locations) Referral ID Status Reason Start Date Expiration Date Visits Requested Visits Authorized [id number] Authorized Specialty Services Required 11/27/2023 11/28/2024 12 12 Encounter Details Date Type Department Care Team (Latest Contact Info) Description 02/23/2024 12:30 PM CDT Office Visit [facility] Orthopaedic Surgery [address] [facility] [address] [place] [address] Jamari Rodríguez MD [address] [facility] [address] [place] [address] Right hip pain; Primary osteoarthritis of right hip Social History Tobacco Use Types Packs/Day Years Used Date Smoking Tobacco: Never Passive Smoke Exposure: Current Smokeless Tobacco: Never [facility] PST [employer] Answer Date Recorded In the past 12 months has e electric, gas, oil, or water [employer] threatened to shut off services in your [...] week 12/04/2023 How often do you attend judaism or hindu serv ices? 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 I recommend: Standing AP pelvis cross-table lateral right hip today before leaving, we will call him with results. Methylprednisolone taper, prescription entered. Schedule right hip injection under fluoroscopy guidance, diagnostic/therapeutic, steroid and anesthetic. Pending review of x-rays and short-term response to injection, consider consultation for total hip arthroplasty. documented in this encounter Ordered Prescriptions Prescription Sig Dispense Quantity Refills Last Filled Start Date End Date methylPREDNISolone (MEDROL DOSEPACK) 4 mg Dosepack Take as directed on package 1 packet 02/23/2024 documented in this encounter Progress Notes * Jamari Rodríguez MD - 02/23/2024 12:30 PM CDT ESTABLISHED PATIENT VISIT INTERIM HISTORY: Tiera Lobato is a 78 y.o. female who presents to the office today for follow-up. She has been under my care for symptomatic right hip osteoarthritis. I provided her an injection under fluoroscopy guidance Approximately 10 months ago. She reports this her a brief period of relief. She reportsprogressively severe right hip pain referring through her thigh to the knee and extending below theknee. Pain limits ambulatory activity tolerance. Separately, she suffered a fall sustaining pretibial hematoma which is gradually improving. Past medical history and review of systems are otherwise without significant change from previous visit. PHYSICAL EXAM: On examination today, the patient is alert and appropriate, and in no apparent distress. She transfers sit to stand with deliberation. She ambulates with protected weight-bearing/decreased stance time on the right using her walker for support. Right hip range of motion in supine readily provokes typical pain through the lower extremity. REVIEW OF X-RAYS/STUDIES: Pelvis and hip x-rays are ordered and visualized today: Severe right hip osteoarthritis with femoral head remodeling Lumbar spine x-rays are ordered and visualized today: There is dextro rotatory scoliosis, moderate multilevel degenerative changes. IMPRESSION/DIAGNOSIS: Progressively severe right hip osteoarthritis, potential radicular component symptoms though if so secondary. TREATMENT PLAN: We discussed things in detail today. I recommend: Standing AP pelvis cross-table lateral right hip today before leaving, we will call him with results. Methylprednisolone taper, prescription entered. Schedule right hip injection under fluoroscopy guidance, diagnostic/therapeutic, steroid and anesthetic. Pending review of x-rays and short-term response to injection, consider consultation for total hip arthroplasty. The rational for all recommendations, as well as relevant risks, are discussed with the patient in detail. The patient expresses understanding, comfort and agreement with the plan, all questions are answered. Orders Placed This Encounter Procedures X-ray lumbar spine complete 4+ views This note was dictated using [employer] software. This note was not read in detail; therefore, variances and inaccuracies may occur. Jamari Del Rio MD Professor Physical Medicine and Rehabilitation [facility] Orthopedics * Vidya Grace LPN - 02/23/2024 12:30 PM CDT Procedure Pre-Screening Assessment Will you receive any vaccinations including the COVID booster 2 weeks prior to or 2 weeks after your scheduled procedure: No Allergic to x-ray contrast dye or local anesthetics: No Not Applicable Do you have a pacemaker or defibrillator? Unknown Do you have cardiology clearance to obtain RFA? N/A Are you or plan on becoming prior to the scheduled procedure: No NSAIDS/Blood thinners: No Not Applicable Cattle Killer: Not Applicable If patient requires an supervisor compressed yeast, do let radiology scheduling ([phone]) know at the time of scheduling and they will schedule the supervisor compressed yeast for patient Are you on oxygen or have a tracheostomy? (Patients on supplemental oxygen or with current tracheostomy cannot be scheduled at [facility]) No Diabetic: No Not Applicable Confirm patient's insurance: Yes What is patient's BMI (Maximum BMI at [facility] is 50) 24 Have you had conservative treatment for your pain? N/A Patient instructed to come with a route sales delivery drivers supervisor?: N/A Patient with commercial insurance or those with Medicare receiving Facet injection informed that ifprocedure is not approved by 3 pm the day prior, it will be rescheduled?: N/A Provided Pre-Procedure Instructions including arrival time: Yes My Chart Remind patient to submit pain diary after their injection: Yes Does the ordering provider's note have a disability scale? N/A Disability scale must be in the chart for ALL Medicare Facet injection before they will be approved. Use .PROMISALL to pull in disability scale into the chart for [facility] ortho patients. Patient encouraged to call with issues/concerns. documented in this encounter Plan of Treatment Not on file documented as of this encounter Results * FL Fluoro Guided Injection Hip Right (03/17/2024 9:23 AM CDT) Narrative [facility] - 03/17/2024 9:25 AM CDT The images from this study are not interpreted by Radiology. ??Please refer to the physician's procedure / OR operative note. us Jamari Rodríguez MD IMG FLUOROSCOPY PROCEDURES Final Result [facility] * X-ray lumbar spine complete 4+ views (02/23/2024 1:46 PM CDT) Anatomical Region Laterality Modality Spine N/A Computed Radiogr aphy 02/23/2024 2:00 PM CDT Impressions 02/23/2024 2:00 PM CDT 1. ??Severe right hip osteoarthritis with flattening and remodeling of the right superior femoral head. 2. ??Rotatory dextroscoliosis of the lumbar spine with multilevel degenerative disease, greatest and at least moderate at the greatest concavity. 3. ??Unchanged T11 and T12 compression fracture deformities. Electronically signed by: Eliud Franklin M.D. Narrative 02/23/2024 2:00 PM CDT EXAMINATION: XR HIP RIGHT 2 OR 3 VIEWS W PELVIS, XR SPINE LUMBAR 4 OR MORE VIEWS HISTORY: Right hip pain FINDINGS: Lumbar spine: 11/24/2023 CT images as comparison. There is rotatory dextroscoliosis of the lumbar spine. ??T11 and T12 compression fractures are not significantly changed. ??There is straightening of the normal lumbar lordosis and hypomobility with flexion and extension. ??No significant listhesis. ??Bones are diffusely osteopenic. ??Multiple degenerative disc disease and facet arthropathy, greatest and at least moderate at the greatest concavity. ??Multiple surgical clips in the left hemiabdomen. Colostomy clips. ??Median sternotomy wires. ??Vascular calcifications. Right hip: 11/24/2023 CT is most recent comparison. ??There is severe right hip osteoarthritis with superior femoral head flattening and acetabular remodeling. ??No definite acute fracture. ??Mild left hip osteoarthritis. ??Degenerative changes at the pubic symphysis. Vascular calcifications in bilateral lower extremities. Procedure Note Eliud Franklin MD - 02/23/2024 EXAMINATION: XR HIP RIGHT 2 OR 3 VIEWS W PELVIS, XR SPINE LUMBAR 4 OR MORE VIEWS HISTORY: Right hip pain FINDINGS: Lumbar spine: 11/24/2023 CT images as comparison. There is rotatory dextroscoliosis of the lumbar spine. T11 and T12 compression fractures are not significantly changed. There is straightening of the normal lumbar lordosis and hypomobility with flexion and extension. No significant listhesis. Bones are diffusely osteopenic. Multiple degenerative disc disease and facet arthropathy, greatest and at least moderate at the greatest concavity. Multiple surgical clips in the left hemiabdomen. Colostomy clips. Median sternotomy wires. Vascular calcifications. Right hip: 11/24/2023 CT is most recent comparison. There is severe right hip osteoarthritis with superior femoral head flattening and acetabular remodeling. No definite acute fracture. Mild left hip osteoarthritis. Degenerative changes at the pubic symphysis. Vascular calcifications in bilateral lower extremities. IMPRESSION: 1. Severe right hip osteoarthritis with flattening and remodeling of the right superior femoral head. 2. Rotatory dextroscoliosis of the lumbar spine with multilevel degenerative disease, greatest and at least moderate at the greatest concavity. 3. Unchanged T11 and T12 compression fracture deformities. Electronically signed by: Eliud Franklin M.D. Jamari Rodríguez MD IMG XR PROCEDURES Final Re sult documented in this encounter Visit Diagnoses Diagnosis Right hip pain Pain in joint, pelvic region and thigh Primary osteoarthritis of right hip Right hip pain Pain in joint, pelvic region and thigh Primary osteoarthritis of right hip Right hip pain Pain in joint, pelvic region and thigh Primary osteoarthritis of right hip documented in this encounter Discontinued Medications Medication Sig Discontinue Reason Start Date End Da te sertraline (ZOLOFT) 100 mg tablet Take 0.5 tablets (50 mg total) by mouth daily Alternate therapy 11/09/2019 02/23/2024 acetaminophen 500 mg capsule Take 2 capsules (1,000 mg total) by mouth 3 (three) times a day Alternate therapy 03/21/2023 02/23/2024 documented as of this encounter Historical Medications * This list may reflect changes made after this encounter. sertraline (ZOLOFT) 50 mg tablet Take 1 tablet (50 mg total) by mouth daily 02/13/2024 acetaminophen (TYLENOL) 500 mg tablet Take 1 tablet (500 mg total) by mouth 3 (three) times a day 02/13/2024 added in this encounter Care Teams Whitewasher Relationship Specialty Start Date End Date Cristian Ling MD [address] [place] [address] PCP - General 10/16/16 documented as of this encounter
--- OUTSIDE RECORDS SUMMARY | 2024-06-12 03:53 | XMS_ITS | Encounter Summary ---
Author Organization [facility] Address [address] [place] [address] Phone Care Team Providers Care Cargo Service Agent Name Role Phone Cristian Ling MD Primary Care Prov ider Reason for Visit * Reason Onset Date Comments bp management 01/23/2024 Encounter Details Date Type Department Care Team (Late st Contact Info) Description 01/23/2024 Telephone [facility] Cardiology [address] [facility] 8th [place] [address] [place] [address] Sami Stafford MD [address] [facility] [address] [place] [address] bp management Social History Tobacco Use Types Packs/Day Years Used Date Smoking Tobacco: Never Passive Smoke Exposure: Current Smokeless Tobacco: Never [facility] Utilities Answer Date Recorded In the past 12 months has Leaky electric, gas, oil, or water [employer] threatened to shut off services in your [...] week 12/04/2023 How often do you attend restoration or nondenominational serv ices? Never 12/04/2023 Do you belong to any clubs o r organizations such as restoration groups, unions, fraternal or athletic groups, or [...] staff should administer the PHQ-9) 0 09/28/2020 [facility] of Occupat ional Health - Occupational Stress [...] any time in the past 12 m [facility], were you homeless or living in a group home (including now)? No 12/04/2023 Personal Safety Answer Date Recorded Have you ever been in or are you currently in a harmful physical or emotional relationship or is someone making you feel afraid or unsafe? 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 * Telephone Encounter - Yara Espinosa - 01/23/2024 2:25 PM CDT Rivera Pt calling to speak with a nurse in regards to following up from the call yesterday and the changesmade to her blood pressure medication. Pt states that the facility that she is living at will not change her medications until a fax is received stating as such. documented in this encounter Plan of Treatment Not on file documented as of this encounter Visit Diagnoses Not on filedocumented in this encounter Care Teams Cargo Service Agent Relationship Specialty Start Date End Date Cristian Ling MD [address] [place] [address] PCP - General 10/16/16 documented as of this encounter
--- OUTSIDE RECORDS SUMMARY | 2024-06-12 03:53 | XMS_ITS | Encounter Summary ---
Author Organization [facility] Address [address] [place] [address] Care Team Providers Care Steam And Gas Turbines Assembler Name Role Phone Cristian Ling MD Primary Care Prov ider Reason for Visit * Diagnostic Imaging (Routine) - Pending Review Specialty Diagnoses / Procedures Referred By Paula cardona Referred To Contact Diagnoses Right hip pain Primary osteoarthritis of right hip Procedures XR Hip Right 2 or 3 Views W Pelvis X-ray pelvis 3+ views Jamari Rodríguez MD [address] [facility] [address] [place] [address] Phone: tel: fax: [address] [address] Referral ID Status Reason Start Date Expiration Date V isits Requested Visits Authorized [id number] Pending Review 02/23/2024 03/24/2025 1 1 Encounter Details Date Type Department Care Team (Latest Contact Info) Description 02/23/2024 1:29 PM CDT - 02/23/2024 11:59 PM CDT Hospital Encounter [id number] Radiology [address] [facility] [address] [place] [address] Right hip pain; Primary osteoarthritis of right hip Discharge Disposition: Discharge to home or self care Social History Tobacco Use Types Packs/Day Years Used Date Smoking Tobacco: Never Passive Smoke Exposure: Current Smokeless Tobacco: Never [facility] Utilities Answer Date Recorded In [...] week 12/04/2023 How often do you attend oriental orthodox or yarsani serv ices? 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 Gender Identity Female 02/07/2021 4:33 PM CDT Sexual Orientation Straight 02/07/2021 4: 33 PM CDT documented as of this encounter Medications at Time of Discharge [...] (50 mg total) by mouth daily 02/13/2024 methylPREDNISolone (MEDROL DOSEPACK) 4 mg Dosepack Take as directed on package 1 packet 02/23/2024 4 documented as of this encounter Discharge Disposition Disposition Code Departure Means Destination Discharge to home or self care documented in this encounter Miscellaneous Notes * Result Encounter Note - Jamari Rodríguez MD - 02/23/2024 3:06 PM CDT Hip x-rays today demonstrate severe arthritis, pronounced compared to prior x- rays, consistent withsymptoms. I recommend we follow through with our plan for injection. Lumbar spine x-rays were also completed moderate arthritic changes as well as a scoliosis curvature. We will consider these findings as well pending outcome of the hip injection. documented in this encounter Plan of Treatment Not on file documented as of this encounter Procedures Procedure Name Priority Date/Time Associated Diagnosis Comments XR HIP RIGHT W PELVIS 2 OR 3 VIEWS Schedule Routine, Read Routine (OP Routine) 02/23/2024 1:46 PM CDT Right hip pain Primary osteoarthritis of right hip XR SPINE LUMBAR COMPLETE 4 OR MORE VIEWS Schedule Routine, Read Routine (OP Routine) 02/23/2024 1:46 PM CDT Right hip pain Primary osteoarthritis of right hip documented in this encounter Results * XR Hip Right 2 or 3 Views W Pelvis (02/23/2024 1:46 PM CDT) Anatomical Region Laterality Modality Lower Extremities, Hip, Pelvis Right C omputed Radiography 02/23/2024 2:00 PM CDT Impressions 02/23/2024 2:00 [...] deformities. Electronically signed by: Eliud Franklin M.D. us Jamari Rodríguez MD IMG XR PROCEDURES Final Re sult * X-ray lumbar spine complete 4+ views [...] of right hip documented in this encounter Care Teams Steam And Gas Turbines Assembler Relationship Specialty Start Date End Date Cristian Ling MD [address] [place] [address] PCP - General 10/16/16 documented as of this encounter
--- OUTSIDE RECORDS SUMMARY | 2024-06-12 03:53 | XMS_ITS | Encounter Summary ---
Author Organization [facility] Healthcare Address [address] [place] [address] Care Team Providers Care Travelers' Aid Worker Name Role Phone Cristian Ling MD Primary Care Prov ider Belinda Quigley CREDIT FRONT OFFICE DEVELOPER Unavailable [phone] Reason for Visit * Reason Comments Successfully Completed Encounter Details Date Type Department Care Team (Late st Contact Info) Description 12/17/2023 SHOP/CHAP Subsequent Outreach [facility] [address] [place] [address] Nallely Luciano, RN [address] [facility] [address] [place], [place] [id number] Social History Tobacco Use Types Packs/Day Years Used Date Smoking Tobacco: Never Passive Smoke Exposure: Current Smokeless Tobacco: Never [facility] Utilities Answer Date Recorded In the past 12 months has TV[employer], gas, oil, or water [employer] threatened to shut off services in your [...] How often do you attend sikh or quaker serv ices? 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 Pt did not have appointment with PCP - she did speak with his nurse on the phone but does not think she spoke with Dr. Ling. The nurse at the [facility] is still working on home health - they are having difficulty finding an agencythat accepts her Essences. Pt also thinks she has BC/BS and is hoping they will cover some in home therapy. She is maybe a little stonger but still cannot walk. Appetite remains diminished. Her [facility] does provide meals. OCM to continue to follow and reminded patient/family to call OCM for questions or concerns. documented in this encounter Plan of Treatment Not on file documented as of this encounter Visit Diagnoses Not on filedocumented in this encounter Care Teams Travelers' Aid Worker Relationship Specialty Start Date End Date Cristian Ling MD [address] [place] [address] PCP - General 10/16/16 Belinda Quigley LCSW [address] [facility] ([facility] Mailstop [phone] [place] [address] SHOP Outpatient Ornamental Rail Installer 12/04/23 12/30/23 documented as of this encounter
--- OUTSIDE RECORDS SUMMARY | 2024-06-12 03:53 | XMS_ITS | Encounter Summary ---
Author Organization [facility] Healthcare Address [address] [place] [address] Care Team Providers Care Data Review Specialist Name Role Phone Cristian Ling MD Primary Care Prov ider Reason for Visit * Reason Comments Successfully Completed Encounter Details Date Type Department Care Team (Late st Contact Info) Description 12/31/2023 SHOP/CHAP Subsequent Outreach [facility] OP CASE MANAGEMENT [address] [place] [address] Belinda Quigley, [facility] [address] [facility] [place] Mailstop [phone] [place] [address] Social History Tobacco Use Types Packs/Day Years Used Date Smoking Tobacco: Never Passive Smoke Exposure: Current Smokeless Tobacco: Never [facility] Utilities Answer Date Recorded In the past 12 months has [employer], gas, oil, or water test company threatened to shut off services in [...] week 12/04/2023 How often do you attend rastafari or buddhist serv ices? Never 12/04/2023 Do you belong to any clubs o r organizations such as rastafari groups, unions, fraternal or athletic groups, or [...] staff should administer the PHQ-9) 0 09/28/2020 [facility] of Occupat ional Health - Occupational Stress [...] any time in the past 12 m [facility], were you homeless or living in a intermediate (including now)? No 12/04/2023 Personal Safety Answer Date Recorded Have you ever been in or are you currently in a harmful physical or emotional relationship or is someone making you feel afraid or unsafe? Denies 12/07/2023 Comments No Sex and Gender Information Value Date Recorded Sex Assigned at Not on file Legal Sex Female 7:12 AM HOSE BUILDER Gender Identity Female 02/07/2021 4:33 PM CDT Sexual Orientation Straight 02/07/2021 4: 33 PM CDT documented as of this encounter Progress Notes * Belinda Quigley LCSW - 12/31/2023 10:24 AM CDT OCM spoke with pt via telephone. Pt reports she started home health services through [facility] on 12/28. Pt plans to call and reschedule her procedure on 01/06. Pt still does not feel strong enoughto get out for appointments. Pt does not have any other questions or concerns at this time. OCM encouraged pt to reach out in the future with any needs. Episode resolved. documented in this encounter Plan of Treatment Not on file documented as of this encounter Visit Diagnoses Not on filedocumented in this encounter Care Teams Data Review Specialist Relationship Specialty Start Date End Date Cristian Ling MD [address] [place] [address] PCP - General 10/16/16 documented as of this encounter
--- OUTSIDE RECORDS SUMMARY | 2024-06-12 03:53 | XMS_ITS | Encounter Summary ---
Author Organization [facility] Healthcare Address [address] [place] [address] Care Team Providers Care Automobile Dealer Name Role Phone Cristian Ling MD Primary Care Prov ider Belinda Quigley EARLY BREASTFEEDING CARE SPECIALIST Unavailable [phone] Encounter Details Date Type Department Care Team (Late st Contact Info) Description 12/04/2023 SHOP/CHAP Initial Eligibility Review [facility] OP CASE MANAGEMENT [address] [place] [id number] Belinda Quigley LCSW [address] [facility] ([facility] [place] [facility]) Mailstop [phone] [place] [address] Social History Tobacco Use Types Packs/Day Years Used Date Smoking Tobacco: Never Passive Smoke Exposure: Current Smokeless Tobacco: Never [facility] Utilities Answer Date Recorded In the past 12 months has [employer], gas, oil, or water [employer] threatened to shut off services in your [...] week 12/04/2023 How often do you attend holiness or hindu serv ices? Never 12/04/2023 Do you belong to any clubs o r organizations such as holiness groups, unions, fraternal or athletic groups, or [...] staff should administer the PHQ-9) 0 09/28/2020 [facility] - Occupational Stress Questionnaire Answer [...] any time in the past 12 m [facility], were you homeless or living in a long-term (including now)? No 12/04/2023 Personal Safety Answer Date Recorded Getting School Help Needed Not on file 08/30 Comments No Sex and Gender Information Value Date Recorded Sex Assigned at Not on file Legal Sex Female 7:12 AM ARTILLERY OFFICER Gender Identity Female 02/07/2021 4:33 PM CDT Sexual Orientation Straight 02/07/2021 4: 33 PM CDT documented as of this encounter Plan of Treatment Not on file documented as of this encounter Visit Diagnoses Not on filedocumented in this encounter Care Teams Automobile Dealer Relationship Specialty Start Date End Date Cristian Ling MD [address] [place] [address] PCP - General 10/16/16 Belinda Quigley, SERG [address] [facility] ([facility]) Mailstop [phone] [place], [place] [id number] SHOP Outpatient Mixer And Scaler 12/04/23 12/30/23 documented as of this encounter
--- OUTSIDE RECORDS SUMMARY | 2024-06-12 03:53 | XMS_ITS | Encounter Summary ---
Author Organization [facility] Address [address] [place] [address] Phone Care Team Providers Care Demo Event Specialist Name Role Phone Cristian iLng MD Primary Care Prov ider Belinda Quigley HOTEL ROOM ATTENDANT Unavailable [phone] Reason for Visit * Reason Onset Date Comments Vertigo 12/17/2023 Encounter Details Date Type Department Care Team (Late st Contact Info) Description 12/17/2023 Telephone [facility] Otolaryngology [address] [place] [address] [address] [place] [address] Silvia Zimmerman, Vertigo Social History Tobacco Use Types Packs/Day Years Used Date Smoking Tobacco: Never Passive Smoke Exposure: Current Smokeless Tobacco: Never [facility] Utilities Answer Date Recorded In the past 12 months has [employer], gas, oil, or water [employer] threatened to shut off services in your [...] week 12/04/2023 How often do you attend jewish or sikh serv ices? Never 12/04/2023 Do you belong to any clubs o r organizations such as jewish groups, unions, fraternal or athletic groups, or [...] staff should administer the PHQ-9) 0 09/28/2020 [facility] Health - Occupational Stress Questionnaire [...] any time in the past [address] [facility], were you homeless or living in a [...] on file Legal Sex Female 7:12 AM FINGER LIFT OPERATOR Gender Identity Female 02/07/2021 4:33 PM CDT Sexual Orientation Straight 02/07/2021 4: 33 PM CDT documented as of this encounter Miscellaneous Notes * Telephone Encounter - Phoebe Jay - 12/17/2023 11:00 AM CDT Called 1x, mailbox is full documented in this encounter Plan of Treatment Not on file documented as of this encounter Visit Diagnoses Not on filedocumented in this encounter Care Teams Demo Event Specialist Relationship Specialty Start Date End Date Cristian Ling MD [address] [place] [address] PCP - General 10/16/16 Belinda Quigley LCSW [address] [facility] ([facility]) Mailstop [phone] [place] [address] SHOP Outpatient Reed Fixer 12/04/23 12/30/23 documented as of this encounter
--- OUTSIDE RECORDS SUMMARY | 2024-06-12 03:53 | XMS_ITS | Encounter Summary ---
Author Organization [facility] Address [address] [place] [address] Phone Care Team Providers Care Industrial Arts Teacher Name Role Phone Cristian Ling MD Primary Care Prov ider Belinda Quigley CUT OFF MAN Unavailable [phone] Reason for Visit * Reason Onset Date Comments holding apixaban 12/05/2023 Encounter Details Date Type Department Care Team (Late st Contact Info) Description 12/05/[address] [facility] Cardiology [address] [facility] Advanced Medicine 8th [place] [address] [place] [address] Sami Stafford MD [address] [address] holding apixaban Social History Tobacco Use Types Packs/Day Years Used Date Smoking Tobacco: Never Passive Smoke Exposure: Current Smokeless Tobacco: Never [facility] Utilities Answer Date Recorded In the [...] week 12/04/2023 How often do you attend roman catholic or faith serv ices? Never 12/04/2023 Do you belong to any clubs o r organizations such as roman catholic groups, unions, fraternal or athletic groups, or [...] staff should administer the PHQ-9) 0 09/28/2020 [facility] of Occupat ional Health - [...] any time in the past 12 m [facility], were you homeless or living [...] on file Legal Sex Female 7:12 AM TRANSMISSION CALIBRATION ENGINEER Gender Identity Female 02/07/2021 4:33 PM CDT Sexual Orientation Straight 02/07/2021 4: 33 PM CDT documented as of this encounter Miscellaneous Notes * Telephone Encounter - Sheila Solomon RN - 12/08/2023 3:36 PM CDT Signed by Dr. Stafford and faxed back, scanned into chart. * Telephone Encounter - Sheila Solomon RN - 12/05/2023 10:42 AM CDT Received request for cardiac clearance/holding apixaban priot to ERCP 01/07/24. Will have Dr. Stafford review/sign. Fax back to [facility] [phone] documented in this encounter Plan of Treatment Not on file documented as of this encounter Visit Diagnoses Not on filedocumented in this encounter Additional Health Concerns Infection Onset Date Last Indicated Resolved Time COVID: Suspected 12/07/2023 12/07/2023 12/07/2023 5:54 PM CDT documented as of this encounter Care Teams Industrial Arts Teacher Relationship Specialty Start Date End Date Cristian Ling MD [address] [place] [address] PCP - General 10/16/16 Belinda Quigley, SERG [address] [facility] ([facility]) Mailstop [phone] [place] [address] SHOP Outpatient Advertising Account Executive 12/04/23 12/30/23 documented as of this encounter
--- OUTSIDE RECORDS SUMMARY | 2024-06-12 03:53 | XMS_ITS | Encounter Summary ---
Author Organization [facility] Address [address] [place] [address] Phone Care Team Providers Care Area Loss Prevention Manager Name Role Phone Cristian Ling MD Primary Care Prov ider Encounter Details Date Type Department Care Team (Late st Contact Info) Description 03/01/2024 Telephone [facility] Orthopaedic Surgery [address] [facility] [address] [place] [address] Vidya Grace LPN Social History Tobacco Use Types Packs/Day Years Used Date Smoking Tobacco: Never Passive Smoke Exposure: Current Smokeless Tobacco: Never [facility] Utilities Answer Date Recorded In the past 12 months has [facility], gas, oil, or water company threatened [...] week 12/04/2023 How often do you attend temple or scientology serv ices? Never 12/04/2023 Do you belong to any clubs o r organizations such as temple groups, unions, fraternal or athletic groups, or [...] staff should administer the PHQ-9) 0 09/28/2020 [facility] of Occupat ional Health - Occupational Stress [...] time in the past 12 m [facility], were you homeless or living in a [...] on file Legal Sex Female 7:12 AM ELECTRONIC WARFARE TECHNICAL Gender Identity Female 02/07/2021 4:33 PM CDT Sexual Orientation Straight 02/07/2021 4: 33 PM CDT documented as of this encounter Miscellaneous Notes * Telephone Encounter - Vidya Grace LPN - 03/01/2024 3:36 PM CDT LVM advising pt of hip/L-spine xray results and recommendations documented in this encounter Plan of Treatment Not on file documented as of this encounter Visit Diagnoses Not on filedocumented in this encounter Care Teams Area Loss Prevention Manager Relationship Specialty Start Date End Date Cristian Ling MD [address] [place] [address] PCP - General 10/16/16 documented as of this encounter
--- OUTSIDE RECORDS SUMMARY | 2024-06-12 03:53 | XMS_ITS | Encounter Summary ---
Author Organization [facility] Address [address] [place] [address] Phone Care Team Providers Care Stamp Press Operator Name Role Phone Cristian Ling MD Primary Care Prov ider Encounter Details Date Type Department Care Team (Late st Contact Info) Description 02/12/2024 Telephone [facility] Orthopaedic Surgery [address] [facility] [address] [place] [address] Vidya Grace LPN Social History Tobacco Use Types Packs/Day Years Used Date Smoking Tobacco: Never Passive Smoke Exposure: Current Smokeless Tobacco: Never [facility] Utilities Answer Date Recorded In the past 12 months has [facility] [employer], gas, oil, or water company threatened to [...] week 12/04/2023 How often do you attend adventist or yarsani serv ices? Never 12/04/2023 Do you belong to any clubs o r organizations such as adventist groups, unions, fraternal or athletic groups, or [...] should administer the PHQ-9) 0 09/28/2020 [facility] of Occupat ional Health - Occupational [...] any time in the past 12 m [facility], were you homeless or living in a fdc (including now)? No 12/04/2023 Personal Safety Answer Date Recorded Have you ever been in or are you currently in a harmful physical or emotional relationship or is someone making you feel afraid or unsafe? Denies 01/12/2024 Comments No Sex and Gender Information Value Date Recorded Sex Assigned at Not on file Legal Sex Female 7:12 AM FAMILY INTERVENTION SPECIALIST Gender Identity Female 02/07/2021 4:33 PM CDT Sexual Orientation Straight 02/07/2021 4: 33 PM CDT documented as of this encounter Miscellaneous Notes * Telephone Encounter - Vidya Grace LPN - 02/12/2024 3:38 PM CDT Pt lvm asking for a call back to discuss upcoming appointment with Dr Del Rio. I have not been ableto reach pt by phone or lvm for her to return my call. I try reaching out to pt on [employer]. documented in this encounter Plan of Treatment Not on file documented as of this encounter Visit Diagnoses Not on filedocumented in this encounter Care Teams Stamp Press Operator Relationship Specialty Start Date End Date Cristian Ling MD [address] [place] [address] PCP - General 10/16/16 documented as of this encounter
--- OUTSIDE RECORDS SUMMARY | 2024-06-12 03:53 | XMS_ITS | Encounter Summary ---
Author Organization [facility] Address [address] [place] [address] Phone Care Team Providers Care Mortgage Operations Manager Name Role Phone Cristian Ling MD Primary Care Prov ider Encounter Details Date Type Department Care Team (Late st Contact Info) Description 01/22/2024 Telephone [facility] Cardiology [address] [facility] Advanced Medicine 8th [place] [address] [place] [address] Sami Stafford MD [address] [facility] [address] [place] [address] Social History Tobacco Use Types Packs/Day Years Used Date Smoking Tobacco: Never Passive Smoke Exposure: Current Smokeless Tobacco: Never [facility] Utilities Answer Date Recorded In the past 12 months has [employer], gas, oil, or water [employer] threatened to shut off services in your [...] week 12/04/2023 How often do you attend moravian or cheondoism serv ices? Never 12/04/2023 Do you belong to any clubs o r organizations such as moravian groups, unions, fraternal or athletic groups, or [...] any time in the past 12 m [facility], were you homeless or living in a retirement (including now)? No 12/04/2023 Personal Safety Answer Date Recorded Have you ever been in or are you currently in a harmful physical or emotional relationship or is someone making you feel afraid or unsafe? Denies 01/12/2024 Comments No Sex and Gender Information Value Date Recorded Sex Assigned at Not on file Legal Sex Female 7:12 AM GENERAL CONTRACTOR Gender Identity Female 02/07/2021 4:33 PM CDT Sexual Orientation Straight 02/07/2021 4: 33 PM CDT documented as of this encounter Miscellaneous Notes * Telephone Encounter - Marialuisa Ornelas RMA - 01/22/2024 2:56 PM CDT Images from the original note were not included. Cj Gallagher RN You10 minutes ago (2:40 PM) AM Could you kindly contact her and advise her to take BID if possible, same time daily after sitting calmly for 5 minutes to allow her HR and BP to normalize? Spoke to pt regarding recs. Verbalized understanding with no questions. * Telephone Encounter - Tammie Edwards - 01/22/2024 2:21 PM CDT Rivera Patient is calling and would like to know how many times she is suppose to have her blood pressure taken? documented in this encounter Plan of Treatment Not on file documented as of this encounter Visit Diagnoses Not on filedocumented in this encounter Care Teams Mortgage Operations Manager Relationship Specialty Start Date End Date Cristian Ling MD [address] [place] [address] PCP - General 10/16/16 documented as of this encounter
--- OUTSIDE RECORDS SUMMARY | 2024-06-12 03:53 | XMS_ITS | Encounter Summary ---
Author Organization [facility] Address [address] [place] [address] Phone Care Team Providers Care Race Board Attendant Name Role Phone Cristian Ling MD Primary Care Prov ider Belinda Quigley FIELD APPRAISER Unavailable [phone] Reason for Visit * Reason Onset Date Comments GI Preprocedure 12/04/2023 Encounter Details Date Type Department Care Team (Late st Contact Info) Description 12/04/2023 Telephone [facility] [address] [place] [address] [place] [address] Priscilla Hamilton RN GI Preprocedure Social History Tobacco Use Types Packs/Day Years Used Date Smoking Tobacco: Never Passive Smoke Exposure: Current Smokeless Tobacco: Never [facility] Utilities Answer Date Recorded In the past 12 months has [employer], gas, oil, or water [employer] threatened to shut off services in your [...] week 12/04/2023 How often do you attend christian or religion serv ices? Never 12/04/2023 Do you belong to any clubs o r organizations such as christian groups, unions, fraternal or athletic groups, or [...] staff should administer the PHQ-9) 0 09/28/2020 [facility] Occupat ional Health - Occupational Stress [...] any time in the past 12 m [facility], were you homeless or living in a [place] facility (including now)? No 12/04/2023 Personal Safety Answer Date Recorded Have you ever been in or are you currently in a harmful physical or emotional relationship or is someone making you feel afraid or unsafe? Denies 12/07/2023 Comments No Sex and Gender Information Value Date Recorded Sex Assigned at Not on file Legal Sex Female 7:12 AM ENTRY OPERATOR Gender Identity Female 02/07/2021 4:33 PM CDT Sexual Orientation Straight 02/07/2021 4: 33 PM CDT documented as of this encounter Miscellaneous Notes * Telephone Encounter - Sydney Zelaya RN - 01/05/2024 1:01 PM CDT Patient called to reschedule her ERCP to 01/12/[address] Prado at 10AM. * Telephone Encounter - Sydney Zelaya RN - 12/26/2023 11:11 AM CDT PROCEDURE Type: ERCP Indication: stent removal Referring Physician: Duong Choi Date Referred: repeat CLINICAL ASSESSMENT [x] Clinical assessment obtained via phone call with patient 12.04.2023 [x]COVID/Flu Screening questions []BMI>45, Weight >350 lbs [] Patient had GI procedure/CPAP clinic/GI clinic <30 days (if Yes, no medical screening questions needed unless new clinical issues in last 30 days) Medical screening questions: BMI/Weight: NA CARDIOVASCULAR: Heart attack ([place])/stents in the past year (<12 mo)- Obtain cardiology records (audra cath report), escalate to physician to consider not stopping antiplatelet or deferring procedure if elective. Consider CPAP referral. WC: Ok if MICHA >12 mos. Case by case basis for 6-12 months, send to CPAP. SC: No heart attack within 6 months, MICHA within 12 months, or BMS within 3 months. Pt states it has been over a year RESPIRATORY/LUNG: None RENAL/LIVER/GI: None GI: Previous COLON or EGD: Hx of Polyps, Mckay, Barretts:no Hx of Constipation:N/A Have you ever required a two day prep? N/A BLEEDING/CLOTTING: None NEUROLOGICAL: None ENDOCRINE: None PRIOR PROCEDURE ISSUES: None COMMERCIAL CLEANER/: NA IMPLANTS.: None PSYCH/Behavioral Hx: N/A SC has limited security Notes: PACEMAKER/ICD Y/N: No/NA Device info: Last documented device check: Any shocks since last cards visit (if yes must see cardiology for procedure clearance): DIALYSIS Y/N: No/NA []HD- Schedule on non-HD day, see protocol []PD- Drain PD fluid AM of procedure, if colonoscopy order AB ppx, see protocol REGULAR DIABETIC MEDS Y/N: No/NA []Yes- Discuss diabetes medication management with prescribing physician GLP DIABETIC MEDICATIONS Y/N: No/NA None Educated Patient on the need to hold Medication, and to contact their ordering MD or Merchandise Associate about bridging medication for procedure. N/A [] Yes - Letter Sent to Ordering Physician/Merchandise Associate Date sent: Hold instructions: GLP Weight Loss Medications N/A Educated Patient on the need to hold Medication, and to contact their ordering MD or Merchandise Associate about bridging medication for procedure. Y/N: No/NA None [] Yes - Letter Sent to Ordering Physician/Merchandise Associate Hold older Instructions: BLOOD THINNERS/ANTICOAG/ANTIPLATELET (BESIDES ASA) Medication: Apixaban (Eliquis) Physician contacted for hold order/date sent: Dr. Stafford, 12.04.2023 Hold order Method sent: [employer] Fax Date hold received: 12.08.2023 Hold instructions: hold for 3 days- scanned in media CONTINUE ASPIRIN INFORMATION REQUESTED []Imaging: []Medical Progress Note/H&P []Medication list []Other: PATIENT OPTIMIZATION []Physician reviewing escalation: []CPAP: Date scheduled: Outcome : [] Location limitations: Scheduling Scheduling location limitations: Med Admin needed [x] NA Language: POA [x] NA Name: Required extended education:no SPECIAL PROCEDURE INSTRUCTIONS Scheduling Notes Procedure information Date of procedure: 01.07.2024 Time of procedure: 1000 Arrival time: 0900 Location: [facility] Proceduralist: Dr. Colindres Instructions Method of instructions: MyChart, Mailed Copy, and Verbal [x]Confirmation of ride/recovery analyst [x]Post anesthesia restrictions given [x]NPO Instructions: midnight [x]Diet Instructions: [x]Take non-blood thinner prescription meds that morning [x]Bring med list, photo ID, insurance card, no valuables [x]Bring COVID vaccination card (if vaccinated) Bowel Prep Prep prescribed: NA Method of Bowel Prep (RX): NA Procedure case time changed from 11AM case to 1030 case. Discussed with patient and instructed 0930arrival time. Denies any questions or concerns. Confirmed AC hold orders as previously discussed. Has contact information should any further questions come up. * Telephone Encounter - Priscilla Hamilton RN - 12/08/2023 3:57 PM CDT Pt made aware of AC hold recs via phone call. Pt verbalizes understanding and has no questions at this time. * Telephone Encounter - Priscilla Hamilton RN - 12/04/2023 1:14 PM CDT AC hold request pending. Request sent to Dr. Stafford via [employer] fax at [phone] . * Telephone Encounter - Priscilla Hamilton RN - 12/04/2023 1:05 PM CDT PROCEDURE Type: ERCP Indication: stent removal Referring Physician: Duong Choi Date Referred: repeat CLINICAL ASSESSMENT [x] Clinical assessment obtained via phone call with patient 12.04.2023 [x]COVID/Flu Screening questions []BMI>45, Weight >350 lbs [] Patient had GI procedure/CPAP clinic/GI clinic <30 days (if Yes, no medical screening questions needed unless new clinical issues in last 30 days) Medical screening questions: BMI/Weight: NA CARDIOVASCULAR: Heart attack ([place])/stents in the past year (<12 mo)- Obtain cardiology records (audra cath report), escalate to physician to consider not stopping antiplatelet or deferring procedure if elective. Consider CPAP referral. WC: Ok if MICHA >12 mos. Case by case basis for 6-12 months, send to CPAP. SC: No heart attack within 6 months, MICHA within 12 months, or BMS within 3 months. Pt states it has been over a year RESPIRATORY/LUNG: None RENAL/LIVER/GI: None GI: Previous COLON or EGD: Hx of Polyps, Mckay, Barretts:no Hx of Constipation:N/A Have you ever required a two day prep? N/A BLEEDING/CLOTTING: None NEUROLOGICAL: None ENDOCRINE: None PRIOR PROCEDURE ISSUES: None COMMERCIAL CLEANER/: NA IMPLANTS.: None PSYCH/Behavioral Hx: N/A SC has limited security Notes: PACEMAKER/ICD Y/N: No/NA Device info: Last documented device check: Any shocks since last cards visit (if yes must see cardiology for procedure clearance): DIALYSIS Y/N: No/NA []HD- Schedule on non-HD day, see protocol []PD- Drain PD fluid AM of procedure, if colonoscopy order AB ppx, see protocol REGULAR DIABETIC MEDS Y/N: No/NA []Yes- Discuss diabetes medication management with prescribing physician GLP DIABETIC MEDICATIONS Y/N: No/NA None Educated Patient on the need to hold Medication, and to contact their ordering MD or Merchandise Associate about bridging medication for procedure. N/A [] Yes - Letter Sent to Ordering Physician/Merchandise Associate Date sent: Hold instructions: GLP Weight Loss Medications N/A Educated Patient on the need to hold Medication, and to contact their ordering MD or Merchandise Associate about bridging medication for procedure. Y/N: No/NA None [] Yes - Letter Sent to Ordering Physician/Merchandise Associate Hold older Instructions: BLOOD THINNERS/ANTICOAG/ANTIPLATELET (BESIDES ASA) Medication: Apixaban (Eliquis) Physician contacted for hold order/date sent: Dr. Stafford, 12.04.2023 Hold order Method sent: Epic Fax Date hold received: 12.08.2023 Hold instructions: hold for 3 days- scanned in media CONTINUE ASPIRIN INFORMATION REQUESTED []Imaging: []Medical Progress Note/H&P []Medication list []Other: PATIENT OPTIMIZATION []Physician reviewing escalation: []CPAP: Date scheduled: Outcome : [] Location limitations: Scheduling Scheduling location limitations: Med Admin needed [x] NA Language: POA [x] NA Name: Required extended education:no SPECIAL PROCEDURE INSTRUCTIONS Scheduling Notes Procedure information Date of procedure: 01.07.2024 Time of procedure: 1100 Arrival time: 1000 Location: [facility] Proceduralist: Dr. Fenton Instructions Method of instructions: MyChart, Mailed Copy, and Verbal [x]Confirmation of ride/recovery analyst [x]Post anesthesia restrictions given [x]NPO Instructions: midnight [x]Diet Instructions: [x]Take non-blood thinner prescription meds that morning [x]Bring med list, photo ID, insurance card, no valuables [x]Bring COVID vaccination card (if vaccinated) Bowel Prep Prep prescribed: NA Method of Bowel Prep (RX): NA * Telephone Encounter - Priscilla Hamilton, RN - 12/04/2023 1:01 PM CDT ----- Message from Nurse Sydney Tomlinson sent at 11/30/2023 12:36 PM CDT ----- Regarding: Baz ERCP January 07- 01/21 Repeat ERCP in 6-8 weeks for stents removal documented in this encounter Plan of Treatment Not on file documented as of this encounter Visit Diagnoses Diagnosis History of biliary duct stent placement- Primary documented in this encounter Orders Case Request Count Last Ordered Date First Orde red Date CASE REQUEST GI 1 12/04/2023 documented in this encounter Additional Health Concerns Infection Onset Date Last Indicated Resolved Time COVID: Suspected 12/07/2023 12/07/2023 12/07/2023 5:54 PM CDT documented as of this encounter Care Teams Race Board Attendant Relationship Specialty Start Date End Date Cristian Ling MD [address] [place] [address] PCP - General 10/16/16 Belinda Quigley LCSW [address] [facility] ([facility] Mailstop [phone] [place] [address] [facility] 12/04/23 12/30/23 documented as of this encounter
--- OUTSIDE RECORDS SUMMARY | 2024-06-12 03:54 | XMS_ITS | Encounter Summary ---
Author Organization [facility] Healthcare Address [address] [place] [address] Care Team Providers Care Computer Installer Name Role Phone Cristian Ling MD Primary Care Prov ider Reason for Visit * Reason Comments Vomiting Diarrhea * Auth/Cert (Routine) Specialty Diagnoses / Procedures Referred By Contdeepali t Referred To Contact Diagnoses Acute hepatitis Procedures NA Referral ID Status Reason Start Date Expiration Date Visits Re quested Visits Authorized [id number] 1 1 Encounter Details Date Type Department Care Team (Late st Contact Info) Description 11/24/2023 9:25 AM CDT - 12/03/2023 3:31 PM CDT Hospital Encounter [address] [id number] Elisha Jose MD [address] [place] [address] Jose Roberto Hernandez MD [address] [place] [address] Benjamín Fernandez MD [address] [place] [address] Baylee Pepper MD [address] [place] [address] Nallely Johns MD [address] [place] [address] Duong Choi MD [address] [place] [address] Ezequiel Jose MD [address] [place] [address] Oscar De La Torre MD [address] [place] [address] Jorge Maldonado MD [address] [place] [address] Hepatitis (Primary Dx); Cellulitis of right lower extremity; Choledocholithiasis Discharge Disposition: Discharge to home or self care Social History Tobacco Use Types Packs/Day Years Used Date Smoking Tobacco: Never Passive Smoke Exposure: Current Smokeless Tobacco: Never [facility] Utilities Answer Date Recorded In the past 12 months has [facility] [employer], gas, oil, or water [employer] threatened to shut off services in your [...] week 12/04/2023 How often do you attend confucianist or gnosticism serv ices? 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 Gender Identity Female 02/07/2021 4:33 PM CDT Sexual Orientation Straight 02/07/2021 4: 33 PM CDT documented as of this encounter Last Filed Vital Signs Vital Sign Reading Time Taken Comments Blood Pressure 138/53 12/03/2023 7:43 AM CDT Pulse 59 12/03/2023 7:43 AM CDT Temperature 36.7 ??C (98.1 ??F) 12/03/2023 7:43 AM CD T Respiratory Rate 18 12/03/2023 7:43 AM CDT Oxygen Saturation 94% 12/03/2023 7:43 AM CDT Inhaled Oxygen Concentration - - Weight 71.7 kg (158 lb) 11/25/2023 5:45 PM CDT Height 162.6 cm (5' 4 ) 11/26/2023 1:02 PM CDT Body Mass Index 27.12 11/25/2023 5:45 PM CDT documented in this encounter Discharge Summaries * Elio Lewis MD - 12/03/2023 3:31 PM CDT Inpatient Discharge Summary BRIEF OVERVIEW Admitting Provider: Elisha Jose MD Discharge Provider: No att. providers found Primary Care Physician at Discharge: Cristian Ling MD [phone] Admission Date: 11/24/2023 Discharge Date: 12/03/2023 Admission Location: [facility] Problems/Diagnoses: Principal Problem: Acute hepatitis Active Problems: Hx of CABG Apical variant hypertrophic cardiomyopathy (HCC) A-fib (CMS/HCC) (HCC) Iron deficiency anemia, unspecified Choledocholithiasis Hematoma of right lower leg Chronic kidney disease (CKD), stage III (moderate) (HCC) Pancreatitis Resolved Problems: No resolved hospital problems. DETAILS OF HOSPITAL STAY Presenting Problem/History of Present Illness: Tiera Lobato is a 78 y.o. 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 Patient presented to ED on 11/23 for 5 days of nausea, vomiting, and diarrhea. She had recently beenseen by her PCP and prescribed antibiotics for a wound on her leg. She was unsure if her GI symptoms started before or after starting the antibiotics. On arrival to the ED, afebrile, HR 65, BP 162/53, satting well on room air. Initial labs pertinent for Alk phos 185, AST 673, ALT 1087, lipase 31, trops negative. CT A/P was obtained showing small stone in the common bile duct. Biliary was consulted and planned to complete ERCP on 11/25, after 48hr off anticoagulation. While she was in the ED, she continued to have R leg swelling which began after a fall on 11/15. US was consistent with hematoma. XR showed no acute fracture. Trauma Surgery was consulted and recommended management non-op with santosh bandage for compression. On arrival to the floor, patient was feeling well. She continued to have abdominal pain, but it wasimproved from prior. Her pain was located in her mid abdomen and epigastric region. She has not hadany nausea or vomiting since being in the hospital. Her diarrhea has also resolved and she had a formed BM today. Hospital Course: 78yo female with PMH significant for pAfib (s/p cardioversion 02/2023 with recurrence) on AC, ApicalVariant HCM, CAD (Dr. Stafford; [place] 08/2012 s/p CABG (LAWSON to LAD, SVG to OM), HTN, CKD stage 3b (b/l cr1.2 -1.4), and Vertigo who was admitted with N/V. #Choledocholithiasis #Post-procedural pancreatitis Patient presenting with 5 days of abdominal pain, nausea, and vomiting. Hepatocellular pattern of liver injury seen on labs. CT A/P on 11/23 found small stone in dependent portion of the common bile duct. Overall presentation most C/ W choledocholithiasis, but also considered medication side effect given recent antibiotic prescription. By time of admission, abdominal pain improving and nausea/vomiting resolved. Underwent ERCP on 11/27/23 with findings of 5 mm stone in CBD, s/p sphincterotomy and stent placement. Biliary re-engaged 11/28 for post-ERCP pancreatitis. She developed abdominal pain and lipase 1154. Reports her abdominal pain is improving and she is able tolerate low fat diet.Repeat E INTERMODAL CUSTOMER SERVICE in 6-8 weeks for stent removal, will be arranged by Biliary. #R Leg Hematoma Patient with swelling and pain of R leg, which began after a fall on 11/15. Went to PCP who was concerned for cellulitis and prescribed abx. While in ED, swelling increasing. US obtained showing hematoma. XR without acute fracture or osteomyelitis. Trauma Surgery consulted and recommended non-op management. Santosh bandages for moderate compression #Afib on Eliquis Follow[facility]. History of afib with difficulty with rate control requiring cardioversion. Home regimen: amiodarone 200mg daily, metoprolol XL 25mg daily, eliquis 5mg BID. Continue home amiodarone 200mg daily and home metoprolol XL 25mg daily.Restart eliquis 5mg BID. #Chronic Normocytic Anemia [facility]. Anemia thought to be due to iron deficiency as well as CKD stage IIIb. Received iron infusion in 09/2023. On admission hgb 8.4 (bl 7-9). Iron 72, ferritin 1715. #CKD IIIb Cr 1.18 (bl 1.2-1.4). Stable Scr, recent 0.88. #Symptomatic Orthostatic Hypotension - discontinued home midodrine 5mg TID given BP 120s-150s/50s-60s #CAD s/p CAGB - continue home metoprolol XL 25mg daily - continue home atorvastatin 80mg daily - continue home zetia #Apical Variant HCM - continue home metoprolol XL 25mg daily Active Issues Requiring Follow-up: Gi follow up Test Results Pending at Discharge: Operative Procedures Performed: Procedure(s): ESOPHAGOGASTRODUODENOSCOPY ENDOSCOPIC ULTRASOUND ENDO ENDOSCOPIC RETROGRADE CHOLANGIOPANCREATOGRAPHY WITH STENT PLACEMENT RAD S AND I BILIARY DUCTAL SYSTEM Other Procedures: Pertinent Test Results: Discharge Details Physical Exam at Discharge: Discharge Condition: stable Pulse: 59 Resp: 18 BP: 138/53 Temp: 36.7 ??C (98.1 ??F) Weight: 71.7 kg (158 lb) Pertinent Exam Findings at Discharge: Discharge Disposition: Discharge to home or self care Code Status at Discharge: Full Discharge Instructions: Activity Instructions Discharge activity: Resume normal activity Other Instructions Call provider for: Temperature -Temperature greater than 101 degrees F Call provider for: persistent nausea or vomiting Call provider for: severe uncontrolled pain Discharge Medications: Current Medications TAKE these medications acetaminophen 500 mg capsule Take 2 capsules (1,000 mg total) by mouth 3 (three) times a day Notes to patient: For pain alendronate 70 mg tablet TAKE 1 TABLET BY MOUTH ONE TIME PER WEEK Commonly known as: FOSAMAX Notes to patient: For bone health/osteoporosis Side effects: muscle cramps or spasms, seizures, bleeding, chest pain, heartburn, trouble swallowing, mouth sores, bone/joint pain, jawbone problems amiodarone 200 mg tablet Take 1 tablet (200 mg total) by mouth daily Commonly known as: PACERONE Notes to patient: For heart rate and rhythm (a-fib) Side effects: sunburn, dizziness, muscle weakness/stiffness, constipation apixaban 5 mg tablet Take 1 tablet (5 mg total) by mouth 2 (two) times a day For: atrial fibrillation Commonly known as: Eliquis Notes to patient: Blood thinner: blood clot treatment/prevention Side Effects: nose bleed, bleeding gums, easy bruising, blood in stool atorvastatin 80 mg tablet Take 1 tablet (80 mg total) by mouth nightly Commonly known as: LIPITOR Notes to patient: High cholesterol treatment Side Effects: diarrhea, nausea, joint/muscle pain calcium carbonate-vitamin D3 1,250mg (500mg elemental) - 5 mcg (200 units) per tablet Take 1 tablet by mouth daily Notes to patient: Bone health, dietary supplement Side effects: constipation, gas, swollen belly/abdomen diclofenac sodium 1 % gel Apply 2 g topically 3 (three) times a day Commonly known as: VOLTAREN ezetimibe 10 mg tablet TAKE 1 TABLET BY MOUTH EVERY DAY Commonly known as: ZETIA Notes to patient: Treat high cholesterol Side Effects: joint/muscle pain, diarrhea, airway irritation linaCLOtide 145 mcg capsule Take 1 capsule (145 mcg total) by mouth daily before breakfast For: irritable bowel syndrome with constipation Commonly known as: Linzess Notes to patient: For IBS with constipation metoprolol XL 25 mg extended release tablet Take 1 tablet (25 mg total) by mouth daily Commonly known as: TOPROL-XL Notes to patient: For heart/ blood pressure control *Check blood pressure before taking* Side Effects: low heart rate, low blood pressure, dizziness midodrine 5 mg tablet Take 1 tablet (5 mg total) by mouth 3 (three) times a day For: a feeling of dizziness upon standing due to a drop in blood pressure Commonly known as: PROAMATINE Notes to patient: Helps support blood pressure, prevent low blood pressure Side effects: high blood pressure, goose bumps, itching, shivering, skin tingling ondansetron 4 mg tablet Take 1 tablet (4 mg total) by mouth every 8 (eight) hours as needed for nausea or vomiting Commonly known as: ZOFRAN Notes to patient: For nausea/ vomiting pantoprazole DR 40 mg EC tablet Take 1 tablet (40 mg total) by mouth daily For: Treatment of Non-Bleeding Gastric Disorder Commonly known as: PROTONIX Notes to patient: Acid reflux / ulcer prevention Side Effects: diarrhea, flatulence, headache prochlorperazine 5 mg tablet Take 1 tablet (5 mg total) by mouth every 6 (six) hours as needed for nausea or vomiting Commonly known as: COMPAZINE sertraline 100 mg tablet Take 0.5 tablets (50 mg total) by mouth daily Commonly known as: ZOLOFT Notes to patient: Antidepressant, helps control mood Side effects: sweating, stomach pain, constipation, diarrhea, nausea, loss of appetite, dizziness, headache Outpatient Follow-Up: Future Appointments Date Time Provider Department Center 03/03/2024 1:15 PM Sami Stafford MD CAR [facility] 8[facility] Cardiology 04/23/2024 9:45 AM LAB, CAM 7 ONC ONC LAB [facility] 04/23/2024 10:30 AM Katja Joe MD HEM CAM 7 [facility] Contact Information for Follow-ups Cristian Ling MD Specialty: Family Medicine Relationship: PCP - [facility] [place] [place] [address] Next Steps: Follow up documented in this encounter Discharge Instructions * Discharge Instructions* Elio Lewis MD - 12/03/2023 12:00 PM CDT # Take nausea meds and pain meds as needed # If you feel like you are having some pain or nausea with food, cut back on your diet to softer foods and liquids and slowly increase the consistency to regular diet. * Attachments The following attachments cannot be sent through Care Everywhere. * Open Cholecystectomy (Discharge Care) ([place]) * Cellulitis (Discharge Care) ([place]) * Pancreatitis (AfterCare(R) Instructions(ER/ED)) ([place]) documented in this encounter Medications at Time [...] MOUTH EVERY DAY 90 tablet 3 07/30/2021 metoprolol XL (TOPROL-XL) 25 mg extended release [...] Refills Last Filled Start Date End Date prochlorperazine (COMPAZINE) 5 mg tablet Take 1 tablet (5 mg total) by mouth every 6 (six) hours as needed for nausea or vomiting 10 tablet 12/03/2023 documented in this encounter Discharge Disposition Disposition Code Departure Means Destination Comment s Discharge to home or self care documented in this encounter Progress Notes * Elio Lewis MD - 12/03/2023 12:00 PM CDT Daily Progress Note Division of Hospital Medicine Name: Tiera Lobato : 1945 Today's Date: December 03, 2023 Age: 78 y.o. female Admission: 11/24/2023 Bed: [id number] LOS: 9 days Subjective Chief complaint: lft elevation Interval History - No acute concerns - Tolerating diet well - Denies pain or nausea today - Anxious about discharge, but reassured prn med use. DC to [facility] today Objective Scheduled Meds PRN Meds Infusions amiodarone, 200 mg, oral, Daily apixaban, 5 mg, oral, Q12H AGUS [Held by Provider] atorvastatin, 80 mg, oral, Nightly calcium carbonate-vitamin D3, 1 tablet, oral, Daily ezetimibe, 10 mg, oral, Daily metoprolol XL, 25 mg, oral, Daily pantoprazole DR, 40 mg, oral, Daily sertraline, 50 mg, oral, Daily acetaminophen, 650 mg, oral, Q6H PRN diclofenac sodium, 2 g, topical, TID PRN polyethylene glycol, 17 g, oral, Daily PRN prochlorperazine, 5 mg, intravenous, Q6H PRN ramelteon, 8 mg, oral, Nightly PRN Vitals Most Recent Vitals: T 36.7 ??C (98.1 ??F), HR 59, BP 138/53, RR 18, SpO2 94 %. 24hr Min/Max: Temp Min: 36.7 ??C (98.1 ??F) Max: 37.2 ??C (99 ??F) Pulse Min: 59 Max: 63 BP Min: 136/55 Max: 148/56 Resp Min: 18 Max: 18 SpO2 Min: 94 % Max: 98 % Intake/Output Summary (Last 24 hours) at 12/03/2023 1730 Last data filed at 12/03/2023 0930 Gross per 24 hour Intake 120 ml Output -- Net 120 ml Physical Exam Constitutional: NAD, well developed Eyes: PERRL, EOMI, anicteric ENT: NCAT, oropharynx normal, moist mucus membranes Lungs: Clear to auscultation in all lung burch, unlabored Cardiovascular: RRR, normal S1 and S2, no murmurs, no JVD GI: Soft, non-tender, non-distended, bowel sounds +, no organomegaly Skin: No new rashes, lesions or bruises on visible skin Extremities: Normal without edema or cyanosis Neurologic: AOx4, CNII-XII intact, normal strength and sensation Psychiatric: Normal affect and mood I have reviewed the patient's vital signs. Lines, Drains, Airways Peripheral IV 11/24/23 20 G Right Antecubital (Active) Labs/Diagnostic Review Na 139 Cl 104 BUN 7 K 3.7 CO2 26 Cr 0.97 Mg -, G AST 88 ALT 195 Alk Phos 121 Ca 9.2 TP - Alb 3.2 Total Bili: 0.6 Direct Bili: - \ Hgb 8.6 / WBC 4.0 -------- Plt 216 / MCV 90.9 \ INR - (Labs above are the most recent result obtained in the last 24 hours. For additional labs/trends, see [facility].) I have reviewed the laboratory results. Imaging Review No results found. I have independently reviewed and interpreted pateint's chart in [facility]. Assessment/Plan Pancreatitis Assessment & Plan Post -procedural pancreatitis with Lipase>1000, epigastric tenderness. - Improving, CLD -IVF with LR -Serial exams and monitor for infection. Biliary aware on 11/28. - Tolerating diet well - Denies pain or nausea today Chronic kidney disease (CKD), stage III (moderate) (HCC) Assessment & Plan Cr 1.18 (bl 1.2-1.4). - monitor BMP, Scr improved, 0.88. Hematoma of right lower leg Assessment & Plan Patient with swelling and pain of R leg, which began after a fall on 11/15. Went to PCP who was concerned for cellulitis and prescribed abx. While in ED, swelling increasing. US obtained showing hematoma. XR without acute fracture or osteomyelitis. Trauma Surgery consulted and recommended non-op management. - Santosh bandages for moderate compression Choledocholithiasis Assessment & Plan - GI/Biliary seen , noted imaging studies. -Underwent ERCP on 11/25 , EUS suggested stone but ERCP itself revealed only sludge visible; biliarysphincterotomy was performed and one coated metal stent placed. Needs f/u ERCP in 6-8 weeks for stent removal . -Pt developed post prandial pain on 11/28/23 and lipase demonstrated an elevation of 1100. She was made NPO and started on IVF. Clinically better with minimal pain, plan on CLD. GI ( Biliary) notifiedon 11/28. - Advance diet to regular ( low fat) on 11/29 and watch. - GI will arrange out pt f/u ERCP. Iron deficiency anemia, unspecified Assessment & Plan Follows [facility]. Anemia thought to be due to iron deficiency as well as CKD stage IIIb. Received iron infusion in 09/2023. On admission hgb 8.4 (bl 7-9). Iron 72, ferritin 1715. - Stable H/H, last 8.5 A-fib (CMS/HCC) (HCC) Assessment & Plan Follows with [facility]. History of afib with difficulty with rate control requiring cardioversion. Home regimen: amiodarone 200mg daily, metoprolol XL 25mg daily, eliquis 5mg BID. - continue home amiodarone 200mg daily - continue home metoprolol XL 25mg daily - restarted eliquis 5mg BID Apical variant hypertrophic cardiomyopathy (HCC) Assessment & Plan - continue home metoprolol XL 25mg daily Hx of CABG Assessment & Plan - continue home metoprolol XL 25mg daily - continue home atorvastatin 80mg daily - continue home zetia * Acute hepatitis Assessment & Plan On presentation here with substantial elevation in LFTs, in hepatocellular pattern with normal Tbili. Of note her LFTs were also elevated/uptrending in August and September of this year. - Noted to have CBD stones, s/p EUE/ERCP on 11/25 ,as noted above. - LFTS down trending slowly. Plan out pt f/u after d/c. Code status : Full Code Diet : Adult Diet Restricted; Low Fat, Low Chol PT/OT Dispo Rec : PT Recommendation/Plan: Assisted Living Facility, Home Health PT (Return to [facility].) / Supplementary Attestation Discharge Planning I have spent 35 minutes on discharge planning activities. Time spent was on Coordination of care, Follow up , Counselling with patient/family, discharge exam, parent/patient education, and Other provider communication. Elio Lewis MD * Branden Danielson - 12/02/2023 8:30 AM CDT Physical Therapy Physical Therapy Evaluation Note NOTE: This is a summary note of the martinez components of the evaluation session. For full details, review chart for all flowsheets documented on by this physical therapy clinician on this date. Vital signs are documented in the vital signs flowsheet. For questions, please review the treatment team and contact the PT or BARREL LINER currently assigned to this patient. If a physical therapy clinician is not assigned to this patient, please call [phone]. 12/02/23 0830 General Chart Reviewed Yes Session Type Evaluation PT Received On 12/02/23 Safe Environment Arm band checked;Patient found in supine;Gait belt utilized for all out of bed mobility Subjective Agreeable to Therapy Family/Caregiver Present No Physical Therapy-Patient Goal To be able to get back to walking better Precautions Precautions Fall risk Home Living Type of Home Assisted Living Facility Home Layout Multi-level;Elevators Home Access Level entry Home Mobility Equipment-Available 4-Wheeled walker Home Mobility Equipment-Currently Using 4-Wheeled walker Additional Comments Pt reports her walker has a seat attached and she has been using her walker forover a year. She has been living in the [facility] for almost two years. Prior Function Level of [place] Independent with ambulation;Independent functional transfers Lives With Alone Receives Help From Facility staff (Staff is available time stamp assembler. She does have a son who lives close by.) Fall within the last 6 months Yes Fall within the last 6 months comment 3 falls. Pt reports losing her footing at home and her feet sliding out from under her when reaching for something. Her most recent fall is the reason for admit. Prior Function Comments Pt states she sleeps n a recliner 2/2 needing assist to get into bed. If needed, facility staff can assist her into bed. The facility does all of the cleaning and cooking for her. Pt states she is independent with mobility with the ww within the facility. Pain Assessment Pain Assessment 0-10 Pain Score 2 Pain Location Leg Pain Orientation Right Cognition Arousal/Alertness Alert Orientation Oriented X4 (person, place, time, situation) Sensation Light Touch WFL (BLE) Sensation Comments No open wounds noted and no edema observed B LE below knees. Pathak Balance Scale 1. Sitting to Standing 3 2. Standing Unsupported 2 3. Sitting with Back Unsupported but Feet Supported on Floor or on a Stool 4 4. Standing to Sitting 3 5. Transfers 2 6. Standing Unsupported with Eyes Closed 0 7. Standing Unsupported with Feet Together 1 8. Reach Forward with Outstretched Arm While Standing 0 9. Documentum Consultant Object from Floor from a Standing Position 0 10. Turning to Look Behind Over Left and Right Shoulders While Standing 0 11. Turn [address] Foot on Step or Stool While Standing Unsupported 0 13. Standing Unsupported One Foot in Front 0 14. Standing on One Leg 0 Pathak Balance Score 15 Static Sitting Balance Static Sitting-Balance Support No upper extremity supported;Feet supported Static Sitting-Sitting Surface Bed Static Sitting-Level of Assistance Close supervision Static Sitting-Comment/# of Minutes Sup for safety Static Standing Balance Static Standing-Balance Support Bilateral upper extremity supported (BUE on ww) Static Standing-Standing Surface Floor Static Standing-Level of Assistance Close supervision Static Standing-Comment/# of Minutes Sup for safety Bed Mobility 1 Bed Mobility From 1 Supine Bed Mobility Type 1 To Bed Mobility to 1 Edge of bed Level of Assistance 1 Independent Bed Mobility 2 Bed Mobility From 2 Edge of bed Bed Mobility Type 2 To Bed Mobility to 2 Supine Level of Assistance 2 Minimum Assist Bed Mobility Comments 2 Min A to elevate LE onto bed Transfer 1 Transfer From 1 Sit Transfer Type 1 To and from Transfer to 1 Stand Transfer Device 1 Wheeled walker Transfer Level of Assistance 1 Standby Assist Trials/Comments 1 SBA for safety Ambulation 1 Distance (ft) 1 56 Surface 1 Level tile Device 1 Wheeled walker Assistance 1 Standby Assist Gait: Requires verbal cues to 1 Improve upright posture Gait Deviations 1 Roma - decreased;Weight shift - decreased Quality of Gait 1 Pt ambulates with decreased roma and decreased step length on the right 2/2 LLE leg pain. Pt utilizes ww appropriately. Ambulation Comments 1 10 MWT: 65 seconds RUE Assessment RUE Assessment WFL RUE Comments Grossly 5/5 strength LUE Assessment LUE Assessment WFL LUE Comments Grossly 5/5 strength, except shoulder flexion 4/5 RLE Assessment RLE Assessment WFL RLE Comments Grossly 5/5 strength,except hip flexion 3/5 with full PROM LLE Assessment LLE Assessment WFL LLE Comments Grossly 5/5 strength Basic Mobility - 6 Click How much difficulty does the patient have: Turning over in bed 4 How much difficulty does the patient currently have: Sitting down and standing up from a chair witharms? 3 How much difficulty does the patient have: Moving from lying on back to sitting on the side of the bed? 4 How much difficulty does the patient have: Moving to and from a bed to a chair including wheelchair? 3 How much help does the patient currently need: Walk in hospital room? 3 How much help from another person does the patient currently need: Climbing 3-5 steps with a railing? 3 Total 6 Click Score (range 6-24) 20 Safe Environment End of Therapy Session Safe Environment End of Therapy Session Patient left supine in bed;Call light within reach;Bed in lowest position with wheels locked;Overbed table within reach Assessment Prognosis Good Problem List Decreased endurance;Decreased strength;Impaired balance;Decreased mobility;Pain Problem List Comments PT Diagnosis: nausea/vomiting and leg swelling results in above listed activity deficits and impairments which prevent full participation in home and community mobility Barriers to Discharge None Plan Plan If this is the last note, consider this the discharge summary;Plan of care initiated Recommendation/Plan PT Recommendation/Plan Assisted Living Facility;Home Health PT (Return to prior living at [facility] PT Recommendation/Plan Comments Pt informed of PT POC and is in agreement. PT Frequency during current admission 2-3x/wk Treatment/Interventions during current admission Balance Training;Bed mobility;Gait training;Endurance training;Strengthening;Therapeutic activity;Therapeutic exercise PT Equipment Recommended None PT - Next Appointment 12/04/23 PT - OK to Discharge Yes PT Evaluation Complete Yes Time Calculation Start Time 0830 Stop Time 0921 Time Calculation (min) 51 min Reason for interruption Returned to discuss PT POC after speaking with CI Start Time 2 30 Stop Time 2 33 Time Calculation 2 (min) 3 min Total Time Calculation (min) 54 min Multi-Disciplinary Problems (from Physical Therapy) Active Problems Problem: Mobility Start Date: 12/02/23 Goal Start Date Expected End Date End Date STG - Patient will ambulate 150 ft with LRD, mod I 12/02/23 12/09/23 -- Cosigned by Shazia Samano, PT at 12/02/2023 3:32 PM CDT * Jorge Maldonado MD - 12/02/2023 6:57 AM CDT Daily Progress Note Division of Hospital Medicine Name: Tiera Lobato : 1945 Today's Date: December 02, 2023 Age: 78 y.o. female Admission: 11/24/2023 Bed: [id number] LOS: 8 days Subjective Chief complaint: nausea Interval History -tolerated breakfast well, will monitor how she does on lunch and dinner and if she's able to do a complete meal without any significant GI discomfort, -dc tomorrow Objective Scheduled Meds PRN Meds Infusions amiodarone, 200 mg, oral, Daily apixaban, 5 mg, oral, Q12H AGUS [Held by Provider] atorvastatin, 80 mg, oral, Nightly calcium carbonate-vitamin D3, 1 tablet, oral, Daily ezetimibe, 10 mg, oral, Daily metoprolol XL, 25 mg, oral, Daily pantoprazole DR, 40 mg, oral, Daily sertraline, 50 mg, oral, Daily diclofenac sodium, 2 g, topical, TID PRN polyethylene glycol, 17 g, oral, Daily PRN prochlorperazine, 5 mg, intravenous, Q6H PRN ramelteon, 8 mg, oral, Nightly PRN Vitals Most Recent Vitals: T 36.9 ??C (98.5 ??F), HR 55, BP 128/59, RR 18, SpO2 97 %. 24hr Min/Max: Temp Min: 36.9 ??C (98.4 ??F) Max: 37.1 ??C (98.8 ??F) Pulse Min: 55 Max: 64 BP Min: 128/59 Max: 138/56 Resp Min: 18 Max: 18 SpO2 Min: 97 % Max: 97 % No intake or output data in the 24 hours ending 12/02/23 0657 Physical Exam Constitutional: NAD, well developed Eyes: PERRL, EOMI, anicteric ENT: NCAT, oropharynx normal, moist mucus membranes Lungs: Clear to auscultation in all lung burch, unlabored Cardiovascular: RRR, normal S1 and S2, no murmurs, no JVD GI: Soft, non-tender, non-distended, bowel sounds +, no organomegaly Skin: No new rashes, lesions or bruises on visible skin Extremities: Normal without edema or cyanosis Neurologic: AOx4, CNII-XII intact, normal strength and sensation Psychiatric: Normal affect and mood I have reviewed the patient's vital signs. Lines, Drains, Airways Peripheral IV 11/24/23 20 G Right Antecubital (Active) Labs/Diagnostic Review Na 139 Cl 104 BUN 7 K 3.7 CO2 26 Cr 0.97 Mg -, G AST 88 ALT 195 Alk Phos 121 Ca 9.2 TP - Alb 3.2 Total Bili: 0.6 Direct Bili: - \ Hgb 8.6 / WBC 4.0 -------- Plt 216 / MCV 90.9 \ INR - (Labs above are the most recent result obtained in the last 24 hours. For additional labs/trends, see Epic.) I have reviewed the laboratory results. Imaging Review No results found. I have independently reviewed and interpreted labs and imaging. Assessment/Plan Pancreatitis Assessment & Plan Post -procedural pancreatitis with Lipase>1000, epigastric tenderness. - Improving, CLD -IVF with LR -Serial exams and monitor for infection. Biliary aware on 11/28. - Clinically improved, benign abd exam and advance diet on 11/29. - Some epigastric pain on 11/30 AM, stable exam otherwise and watch today, as per GI. Chronic kidney disease (CKD), stage III (moderate) (HCC) Assessment & Plan Cr 1.18 (bl 1.2-1.4). - monitor BMP, Scr improved, 0.88. Hematoma of right lower leg Assessment & Plan Patient with swelling and pain of R leg, which began after a fall on 11/15. Went to PCP who was concerned for cellulitis and prescribed abx. While in ED, swelling increasing. US obtained showing hematoma. XR without acute fracture or osteomyelitis. Trauma Surgery consulted and recommended non-op management. - Santosh bandages for moderate compression Choledocholithiasis Assessment & Plan - GI/Biliary seen , noted imaging studies. -Underwent ERCP on 11/25 , EUS suggested stone but ERCP itself revealed only sludge visible; biliarysphincterotomy was performed and one coated metal stent placed. Needs f/u ERCP in 6-8 weeks for stent removal . -Pt developed post prandial pain on 11/28/23 and lipase demonstrated an elevation of 1100. She was made NPO and started on IVF. Clinically better with minimal pain, plan on CLD. GI ( Biliary) notifiedon 11/28. - Advance diet to regular ( low fat) on 11/29 and watch. - D/w Bilary on 11/30, plan to observe today and hopeful d/c 12/01 if stable. -GI will arrange out pt f/u ERCP. Iron deficiency anemia, unspecified Assessment & Plan Follows with [facility]. Anemia thought to be due to iron deficiency as well as CKD stage IIIb. Received iron infusion in 09/2023. On admission hgb 8.4 (bl 7-9). Iron 72, ferritin 1715. - Stable H/H, last 8.5 A-fib (CMS/HCC) (HCC) Assessment & Plan Follows with [facility]. History of afib with difficulty with rate control requiring cardioversion. Home regimen: amiodarone 200mg daily, metoprolol XL 25mg daily, eliquis 5mg BID. - continue home amiodarone 200mg daily - continue home metoprolol XL 25mg daily - restarted eliquis 5mg BID Apical variant hypertrophic cardiomyopathy (HCC) Assessment & Plan - continue home metoprolol XL 25mg daily Hx of CABG Assessment & Plan - continue home metoprolol XL 25mg daily - continue home atorvastatin 80mg daily - continue home zetia * Acute hepatitis Assessment & Plan On presentation here with substantial elevation in LFTs, in hepatocellular pattern with normal Tbili. Of note her LFTs were also elevated/uptrending in August and September of this year. - Noted to have CBD stones, s/p EUE/ERCP on 11/25 ,as noted above. - LFTS down trending slowly. Plan out pt f/u after d/c. Code status : Full Code Diet : Adult Diet Restricted; Low Fat, Low Chol PT/OT Dispo Rec : / Supplementary Attestation My total encounter time on this service date was 35 minutes which was spent performing a [id number] encounter and personally completing the provider-level activities documented in the note. This includes time spent prior to the visit and after the visit in direct care of the patient. This time does not include time spent in any separately reportable services. Jorge Maldonado MD * Graham Zafar, RD - 12/01/2023 5:38 PM CDT NUTRITION ASSESSMENT Nutrition Status: Patient at risk for malnutrition, but does not meet ASPEN criteria for malnutrition. REASON FOR ASSESSMENT: Follow Up Encounter Date: 12/01/23 5:38 PM Admission Date: 11/24/2023 LOS: 7 days HPI: Patient is a 78 y.o. female with h/o Afib s/p cardioversion 02/2023 on Eliquis, CAD, PA in 2013 s/p CABG, apical variant HCM, CKD III, and chronic anemia who presents with nausea/vomiting and leg swelling. Objective Past Medical History: Diagnosis Date Acid reflux Heart murmur High cholesterol History of blood clots 1960s in leg as teenager - had phlebitis History of PA (myocardial infarction) 2012 History of vertebral fracture 2017 HTN (hypertension) IBS (irritable bowel syndrome) Vertigo Past Surgical History: Procedure Laterality Date CARDIOVERSION 03/2023 COLON SURGERY 1992 Repair burst colon CORONARY ARTERY BYPASS GRAFT 2012 Double by-pass - [facility] FLUORO GUIDED INJECTION HIP RIGHT Right 05/16/2022 FLUORO GUIDED INJECTION HIP RIGHT Right 08/15/2022 FLUORO GUIDED INJECTION HIP RIGHT Right 12/10/2022 FLUORO GUIDED INJECTION HIP RIGHT Right 05/13/[address] James ([place], [place]) TOTAL KNEE ARTHROPLASTY Right 2018 Social History Tobacco Use Smoking status: Never Passive exposure: Current Smokeless tobacco: Never Substance and Sexual Activity Drug use: Yes Types: Medical marijuana Comment: Tablets - tid Sexual activity: None Alcohol Use: Not At Risk (11/26/2023) AUDIT-C Frequency of Alcohol Consumption: Never Average Number of Drinks: Patient does not drink Frequency of Binge Drinking: Never MEDICATION/LAB REVIEW: Scheduled Meds: amiodarone, 200 mg, oral, Daily apixaban, 5 mg, oral, Q12H AGUS [Held by Provider] atorvastatin, 80 mg, oral, Nightly calcium carbonate-vitamin D3, 1 tablet, oral, Daily ezetimibe, 10 mg, oral, Daily metoprolol XL, 25 mg, oral, Daily pantoprazole DR, 40 mg, oral, Daily sertraline, 50 mg, oral, Daily Continuous Infusions: PRN Meds: diclofenac sodium polyethylene glycol prochlorperazine ramelteon Recent Labs Lab Units 11/29/23 2159 11/28/23 1749 11/27/23 2148 11/27/23 1441 11/27/23 0043 11/25/23 1909 SODIUM mmol/L 136 138 137 < > 136 135 POTASSIUM PLASMA mmol/L 3.6 3.9 4.0 < > 3.9 3.9 CHLORIDE mmol/L 103 104 103 < > 101 103 CO2 mmol/L 24 23 23 < > 22 23 BUN SERUM mg/dL 9 18 20 < > 16 13 CREATININE mg/dL 0.88 1.18* 1.23* < > 1.19* 1.22* [id number]-[id number] mL/min/1.73 m2 68 48* 45* < > 47* 46* CALCIUM mg/dL 8.6 8.8 9.3 < > 9.6 9.8 ALBUMIN g/dL 3.1* 3.4* 3.5 < > 3.7 3.5 PHOSPHORUS PLASMA mg/dL -- -- -- -- -- 3.0 MAGNESIUM mg/dL -- 2.1 1.9 -- 1.8 1.8 < > = values in this interval not displayed. Recent Labs Lab Units 11/29/23215811/28/23 1749 11/27/23 2148 11/27/23 1441 11/27/23 0043 11/25/23 1909 11/25/23 0647 GLUCOSE mg/dL 88 87 93 125 92 99 84 ALT Date Value Ref Range Status 11/29/2023 263 (H) 7 - 45 Units/L Final AST Date Value Ref Range Status 11/29/2023 104 (H) 10 - 45 Units/L Final Alk phos Date Value Ref Range Status 11/29/2023 123 40 - 130 Units/L Final Lab Results Component Value Date HGBA1C 5.8 (H) 02/18/2023 HDL 60 08/20/2023 LDLCALC 76 08/20/2023 CHOL 158 08/20/2023 TRIG 109 08/20/2023 NURSING ASSESSMENT: Last BM Date: 11/30/23 Bowel Sounds (All Quadrants): Present Nixon Scale Score: 20 Skin Integrity: Bruising, Abrasion Type of Wound (LDA): Wound Vital Signs BP: 133/61 Temp: 37.1 ??C (98.7 ??F) Pulse: 64 Resp: 18 SpO2: 97 % Intake/Output Summary (Last 24 hours) at 12/01/2023 1738 Last data filed at 11/30/2023 1740 Gross per 24 hour Intake 140 ml Output -- Net 140 ml Adult Malnutrition Scoring Tool (MST) What diet do you follow at home?: regular Have You Recently Lost Weight Without Trying?: Yes (Comment) How Much Weight Have You Lost?: 2 - 13 lb Have you been eating poorly because of a decreased appetite?: Yes Malnutrition Screening Tool (MST) Score: 2 Hunger Screen - Admission Within the past 12 months the food we bought just didn't last and we didn't have money to get more.: Never true Within the past 12 months we worried whether our food would run out before we got money to buy more.: Never true Within the past 12 months, you worried that your food would run out before you got the money to buymore.: Never true Within the past 12 months, the food you bought just didn't last and you didn't have money to get more.: Never true Anthropometrics Weight: 71.7 kg (158 lb) Admission Weight : 71.8 kg Weight Change: -0.13 kg (-0.29 lbs) IBW/kg (Calculated) : 54.4 kg Height: 162.6 cm (5' 4 ) Weight in (lb) to have BMI = 25: 145.3 BMI (Calculated): 27.1 Wt Readings from Last 10 Encounters: 11/25/23 71.7 kg (158 lb) 10/30/23 71.8 kg (158 lb 6.4 oz) 10/03/23 72 kg (158 lb 12.8 oz) 08/20/23 74.4 kg (164 lb) 03/21/23 75.2 kg (165 lb 12.8 oz) 01/20/23 83 kg (182 lb 15.7 oz) 01/13/23 85.7 kg (189 lb) 11/27/22 78.7 kg (173 lb 9.6 oz) 10/18/22 84.6 kg (186 lb 8 oz) 05/01/22 79.8 kg (176 lb) Dietary Orders (From admission, onward) Start Ordered 11/30/23916 Adult Diet Restricted; Low Fat, Low Chol Diet effective now Question Answer Comment ([facility]) Diet type Restricted Fat / Sodium Restriction: Low Fat, Low Chol 11/30/23916 Allergies: Reviewed, milk IMPRESSION: 11/30 - screened for a F/U. Pt's diet was advanced on 11/29 - she is tolerating it well and had 75% of her breakfast and lunch today. Denies N/V/D and last BM was on 11/30. RD recommended oral supplements - she continues to refuse them still. Will re-assess for acceptance next F/U visit. Labs reviewed. RD following. 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 Reports 10# recent wt loss. Per chart review, pt has lost 8# x 8 months (not significant). Pt declined all oral nutrition supplements. 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 Reports good dentition. Pt reports when things are going well, she eats 2 meals/day andsnacks on junk food. Labs noted Pt does not meet ASPEN criteria for malnutrition but is at risk given decreased po intake and weight loss. ASPEN MALNUTRITION ASSESSMENT: Date of completion: 11/26/23 NUTRITION FOCUSED PHYSICAL EXAM: Not clinically indicated, no concerns for malnutrition at this time. NUTRITION DIAGNOSIS: Nutrition Diagnosis 1: Predicted suboptimal energy intake Related to: Loss of appetite Evidenced by: Patient interview INTERVENTION(S): Summary: Initial assessment Offer oral nutrition supplements next F/U visit GOAL(S): Oral intake to meet 75% estimated nutritional needs by next assessment MONITORING/EVALUATION: Blood glucoses, Appetite, Electrolyte changes, Labs, Plan of care, Stool patterns, PO intake, Weight changes Graham Zafar MS, RD, LD [facility] * Oscar De La Torre MD - 12/01/2023 12:40 PM CDT Daily Progress Note Division of Hospital Medicine Name: Tiera Lobato : 1945 Today's Date: December 01, 2023 Age: 78 y.o. female Admission: 11/24/2023 Bed: [id number] LOS: 7 days Subjective Chief complaint: Slightly more upper epigastric pain this AM. No N/V. Interval History - D/w Biliary this AM, prefers to watch today ( no need for LFTS or Lipase) and d/c tomorrow if stable. GI will arrange out pt f/u, ERCP in 6 weeks. Objective Scheduled Meds PRN Meds Infusions amiodarone, 200 mg, oral, Daily apixaban, 5 mg, oral, Q12H AGUS [Held by Provider] atorvastatin, 80 mg, oral, Nightly calcium carbonate-vitamin D3, 1 tablet, oral, Daily ezetimibe, 10 mg, oral, Daily metoprolol XL, 25 mg, oral, Daily pantoprazole DR, 40 mg, oral, Daily sertraline, 50 mg, oral, Daily diclofenac sodium, 2 g, topical, TID PRN polyethylene glycol, 17 g, oral, Daily PRN prochlorperazine, 5 mg, intravenous, Q6H PRN ramelteon, 8 mg, oral, Nightly PRN Vitals Most Recent Vitals: T 36.9 ??C (98.4 ??F), HR 63, BP 138/56, RR 18, SpO2 97 %. 24hr Min/Max: Temp Min: 36.6 ??C (97.9 ??F) Max: 37 ??C (98.6 ??F) Pulse Min: 54 Max: 63 BP Min: 132/51 Max: 163/60 Resp Min: 18 Max: 18 SpO2 Min: 95 % Max: 99 % Intake/Output Summary (Last 24 hours) at 12/01/2023 1257 Last data filed at 11/30/2023 1740 Gross per 24 hour Intake 260 ml Output -- Net 260 ml Physical Exam Constitutional: NAD, on RA Eyes: PERRL, EOMI, anicteric Lungs: Clear to auscultation in all lung burch, unlabored Cardiovascular: Reg S1 and S2, no murmurs GI: Soft, dull epigastric tenderness, non-distended Extremities: Distally intact dorsal pedal pulses bilat, intact sensation Neurologic: AOx4, normal strength and sensation Psychiatric: Normal affect and mood. Lines, Drains, Airways Peripheral IV 11/24/23 20 G Right Antecubital (Active) Labs/Diagnostic Review Na 136 Cl 103 BUN 9 K 3.6 CO2 24 Cr 0.88 Mg -, G AST 104 ALT 263 Alk Phos 123 Ca 8.6 TP - Alb 3.1 Total Bili: 0.7 Direct Bili: - \ Hgb 8.5 / WBC 4.2 -------- Plt 200 / MCV 88.9 \ INR - (Labs above are the most recent result obtained in the last 24 hours. For additional labs/trends, see Epic.) I have reviewed the laboratory results. Imaging Review No results found. Assessment/Plan Pancreatitis Assessment & Plan Post -procedural pancreatitis with Lipase>1000, epigastric tenderness. - Improving, CLD -IVF with LR -Serial exams and monitor for infection. Biliary aware on 11/28. - Clinically improved, benign abd exam and advance diet on 11/29. - Some epigastric pain on 11/30 AM, stable exam otherwise and watch today, as per GI. Chronic kidney disease (CKD), stage III (moderate) ([facility]) Assessment & Plan Cr 1.18 (bl 1.2-1.4). - monitor BMP, Scr improved, 0.88. Hematoma of right lower leg Assessment & Plan Patient with swelling and pain of R leg, which began after a fall on 11/15. Went to PCP who was concerned for cellulitis and prescribed abx. While in ED, swelling increasing. US obtained showing hematoma. XR without acute fracture or osteomyelitis. Trauma Surgery consulted and recommended non-op management. - Santosh bandages for moderate compression Choledocholithiasis Assessment & Plan - GI/Biliary seen , noted imaging studies. -Underwent ERCP on 11/25 , EUS suggested stone but ERCP itself revealed only sludge visible; biliarysphincterotomy was performed and one coated metal stent placed. Needs f/u ERCP in 6-8 weeks for stent removal . -Pt developed post prandial pain on 11/28/23 and lipase demonstrated an elevation of 1100. She was made NPO and started on IVF. Clinically better with minimal pain, plan on CLD. GI ( Biliary) notifiedon 11/28. - Advance diet to regular ( low fat) on 11/29 and watch. - D/w Bilary on 11/30, plan to observe today and hopeful d/c 12/01 if stable. -GI will arrange out pt f/u ERCP. Iron deficiency anemia, unspecified Assessment & Plan Follows with [facility]. Anemia thought to be due to iron deficiency as well as CKD stage IIIb. Received iron infusion in 09/2023. On admission hgb 8.4 (bl 7-9). Iron 72, ferritin 1715. - Stable H/H, last 8.5 A-fib (CMS/HCC) ([facility]) Assessment & Plan [facility]. History of afib with difficulty with rate control requiring cardioversion. Home regimen: amiodarone 200mg daily, metoprolol XL 25mg daily, eliquis 5mg BID. - continue home amiodarone 200mg daily - continue home metoprolol XL 25mg daily - restarted eliquis 5mg BID Apical variant hypertrophic cardiomyopathy (HCC) Assessment & Plan - continue home metoprolol XL 25mg daily Hx of CABG Assessment & Plan - continue home metoprolol XL 25mg daily - continue home atorvastatin 80mg daily - continue home zetia * Acute hepatitis Assessment & Plan On presentation here with substantial elevation in LFTs, in hepatocellular pattern with normal Tbili. Of note her LFTs were also elevated/uptrending in August and September of this year. - Noted to have CBD stones, s/p EUE/ERCP on 11/25 ,as noted above. - LFTS down trending slowly. Plan out pt f/u after d/c. Code status : Full Code Diet : Adult Diet Restricted; Low Fat, Low Chol PT/OT Dispo Rec : / Supplementary Attestation My total encounter time on this service date was 45 minutes which was spent performing a [id number] encounter and personally completing the provider-level activities documented in the note. This includes time spent prior to the visit and after the visit in direct care of the patient. This time does not include time spent in any separately reportable services. Oscar De La Torre MD * Oscar De La Torre MD - 11/30/2023 12:52 PM CDT Daily Progress Note Division of Hospital Medicine Name: Tiera Lobato : 1945 Today's Date: November 30, 2023 Age: 78 y.o. female Admission: 11/24/2023 Bed: [id number] LOS: 6 days Subjective Chief complaint: Feels good, tolerating FLD and wants regular diet. Interval History - Plan to advance diet ( low Fat ) on 11/29 and watch. - GI ( Biliary seen) on 11/28, noted recs. Objective Scheduled Meds PRN Meds Infusions amiodarone, 200 mg, oral, Daily apixaban, 5 mg, oral, Q12H AGUS [Held by Provider] atorvastatin, 80 mg, oral, Nightly calcium carbonate-vitamin D3, 1 tablet, oral, Daily ezetimibe, 10 mg, oral, Daily metoprolol XL, 25 mg, oral, Daily pantoprazole DR, 40 mg, oral, Daily sertraline, 50 mg, oral, Daily diclofenac sodium, 2 g, topical, TID PRN polyethylene glycol, 17 g, oral, Daily PRN prochlorperazine, 5 mg, intravenous, Q6H PRN ramelteon, 8 mg, oral, Nightly PRN Vitals Most Recent Vitals: T 36.7 ??C (98 ??F), HR 60, BP 149/50, RR 18, SpO2 98 %. 24hr Min/Max: Temp Min: 36.7 ??C (98 ??F) Max: 36.7 ??C (98.1 ??F) Pulse Min: 52 Max: 67 BP Min: 133/48 Max: 159/63 Resp Min: 18 Max: 20 SpO2 Min: 98 % Max: 98 % Intake/Output Summary (Last 24 hours) at 11/30/2023 1257 Last data filed at 11/29/20235 Gross per 24 hour Intake 1000 ml Output -- Net 1000 ml Physical Exam Constitutional: NAD, on RA Eyes: PERRL, EOMI, anicteric Lungs: Clear to auscultation in all lung burch, unlabored Cardiovascular: Reg S1 and S2, no murmurs GI: Soft, non-tender, non-distended Extremities: Distally intact dorsal pedal pulses bilat. Neurologic: AOx4, normal strength and sensation Psychiatric: Normal affect and mood. Lines, Drains, Airways Peripheral IV 11/24/23 20 G Right Antecubital (Active) Labs/Diagnostic Review Na 136 Cl 103 BUN 9 K 3.6 CO2 24 Cr 0.88 Mg 2.1, G AST 104 ALT 263 Alk Phos 123 Ca 8.6 TP - Alb 3.1 Total Bili: 0.7 Direct Bili: - \ Hgb 8.5 / WBC 4.2 -------- Plt 200 / MCV 88.9 \ INR - (Labs above are the most recent result obtained in the last 24 hours. For additional labs/trends, see Epic.) I have reviewed the laboratory results. Imaging Review No results found. Assessment/Plan Pancreatitis Assessment & Plan Post -procedural pancreatitis with Lipase>1000, epigastric tenderness. - Improving, CLD -IVF with LR -Serial exams and monitor for infection. Biliary aware on 11/28. - Clinically improved, benign abd exam and advance diet on 11/29. Chronic kidney disease (CKD), stage III (moderate) (HCC) Assessment & Plan Cr 1.18 (bl 1.2-1.4). - monitor BMP, Scr improved, 0.88. Hematoma of right lower leg Assessment & Plan Patient with swelling and pain of R leg, which began after a fall on 11/15. Went to PCP who was concerned for cellulitis and prescribed abx. While in ED, swelling increasing. US obtained showing hematoma. XR without acute fracture or osteomyelitis. Trauma Surgery consulted and recommended non-op management. - Santosh bandages for moderate compression Choledocholithiasis Assessment & Plan - GI/Biliary seen , noted imaging studies. -Underwent ERCP on 11/25 , EUS suggested stone but ERCP itself revealed only sludge visible; biliarysphincterotomy was performed and one coated metal stent placed. Needs f/u ERCP in 6-8 weeks for stent removal . -Pt developed post prandial pain on 11/28/23 and lipase demonstrated an elevation of 1100. She was made NPO and started on IVF. Clinically better with minimal pain, plan on CLD. GI ( Biliary) notifiedon 11/28. - Advance diet to regular ( low fat) on 11/29 and watch. Iron deficiency anemia, unspecified Assessment & Plan Follows with [facility]. Anemia thought to be due to iron deficiency as well as CKD stage IIIb. Received iron infusion in 09/2023. On admission hgb 8.4 (bl 7-9). Iron 72, ferritin 1715. - Stable H/H A-fib (CMS/HCC) (HCC) Assessment & Plan Follows with [facility]. History of afib with difficulty with rate control requiring cardioversion. Home regimen: amiodarone 200mg daily, metoprolol XL 25mg daily, eliquis 5mg BID. - continue home amiodarone 200mg daily - continue home metoprolol XL 25mg daily - restart eliquis 5mg BID Apical variant hypertrophic cardiomyopathy (HCC) Assessment & Plan - continue home metoprolol XL 25mg daily Hx of CABG Assessment & Plan - continue home metoprolol XL 25mg daily - continue home atorvastatin 80mg daily - continue home zetia * Acute hepatitis Assessment & Plan On presentation here with substantial elevation in LFTs, in hepatocellular pattern with normal Tbili. Of note her LFTs were also elevated/uptrending in August and September of this year. - Noted to have CBD stones, s/p EUE/ERCP on 11/25 ,as noted above. - LFTS down trending slowly. Code status : Full Code Diet : Adult Diet Restricted; Low Fat, Low Chol PT/OT Dispo Rec : / Supplementary Attestation My total encounter time on this service date was 42 minutes which was spent performing a [id number] encounter and personally completing the provider-level activities documented in the note. This includes time spent prior to the visit and after the visit in direct care of the patient. This time does not include time spent in any separately reportable services. Oscar De La Torre MD * Oscar De La Torre MD - 11/29/2023 12:46 PM CDT Daily Progress Note Division of Hospital Medicine Name: Tiera Lobato : 1945 Today's Date: November 29, 2023 Age: 78 y.o. female Admission: 11/24/2023 Bed: [id number] LOS: 5 days Subjective Chief complaint: Denies any abd pain this AM. Interval History - Tolerating CLD well. - D/w GI ( Biliary) on 11/28 about post-ERCP related pancreatitis with high lipase/ abd pain yesterday. Plan to watch closely. - D/w I-P ( infection prevention) on 11/28, they are monitoring and nothing needs to be done now. Objective Scheduled Meds PRN Meds Infusions amiodarone, 200 mg, oral, Daily apixaban, 5 mg, oral, Q12H AGUS [Held by Provider] atorvastatin, 80 mg, oral, Nightly calcium carbonate-vitamin D3, 1 tablet, oral, Daily ezetimibe, 10 mg, oral, Daily metoprolol XL, 25 mg, oral, Daily pantoprazole DR, 40 mg, oral, Daily sertraline, 50 mg, oral, Daily diclofenac sodium, 2 g, topical, TID PRN polyethylene glycol, 17 g, oral, Daily PRN prochlorperazine, 5 mg, intravenous, Q6H PRN ramelteon, 8 mg, oral, Nightly PRN Lactated Ringer's, 125 mL/hr, Last Rate: 125 mL/hr (11/29/23 1158) Vitals Most Recent Vitals: T 36.8 ??C (98.2 ??F), HR 53, BP 121/46, RR 16, SpO2 98 %. 24hr Min/Max: Temp Min: 36.4 ??C (97.5 ??F) Max: 36.8 ??C (98.2 ??F) Pulse Min: 53 Max: 55 BP Min: 113/44 Max: 123/42 Resp Min: 16 Max: 18 SpO2 Min: 96 % Max: 99 % Intake/Output Summary (Last 24 hours) at 11/29/2023 1309 Last data filed at 11/29/2023 1158 Gross per 24 hour Intake 1410 ml Output -- Net 1410 ml Physical Exam Constitutional: NAD, on RA Eyes: PERRL, EOMI, anicteric Lungs: Clear to auscultation in all lung burch, unlabored Cardiovascular: Reg S1 and S2, no murmurs GI: Soft, no focal tenderness, non-distended Extremities: Distally intact dorsal pedal pulses bilat, intact sensation Neurologic: AOx4, normal strength and sensation Psychiatric: Normal affect and mood. Lines, Drains, Airways Peripheral IV 11/24/23 20 G Right Antecubital (Active) Labs/Diagnostic Review Na 138 Cl 104 BUN 18 K 3.9 CO2 23 Cr 1.18 Mg 2.1, G AST 114 ALT 338 Alk Phos 133 Ca 8.8 TP - Alb 3.4 Total Bili: 0.8 Direct Bili: - \ Hgb 8.0 / WBC 3.7 -------- Plt 208 / MCV 89.5 \ INR - (Labs above are the most recent result obtained in the last 24 hours. For additional labs/trends, see Epic.) I have reviewed the laboratory results. Imaging Review No results found. Assessment/Plan Pancreatitis Assessment & Plan Post -procedural pancreatitis with Lipase>1000, epigastric tenderness. - Improving, CLD -IVF with LR -Serial exams and monitor for infection. Biliary aware on 11/28. Chronic kidney disease (CKD), stage III (moderate) (HCC) Assessment & Plan Cr 1.18 (bl 1.2-1.4). - monitor BMP Hematoma of right lower leg Assessment & Plan Patient with swelling and pain of R leg, which began after a fall on 11/15. Went to PCP who was concerned for cellulitis and prescribed abx. While in ED, swelling increasing. US obtained showing hematoma. XR without acute fracture or osteomyelitis. Trauma Surgery consulted and recommended non-op management. - Santosh bandages for moderate compression Choledocholithiasis Assessment & Plan - GI/Biliary seen , noted imaging studies. -Underwent ERCP on 11/25 , EUS suggested stone but ERCP itself revealed only sludge visible; biliarysphincterotomy was performed and one coated metal stent placed. Needs f/u ERCP in 6-8 weeks for stent removal . -Pt developed post prandial pain on 11/28/23 and lipase demonstrated an elevation of 1100. She was made NPO and started on IVF. Clinically better with minimal pain, plan on CLD. GI ( Biliary) notifiedon 11/28. Iron deficiency anemia, unspecified Assessment & Plan Follows with [facility]. Anemia thought to be due to iron deficiency as well as CKD stage IIIb. Received iron infusion in 09/2023. On admission hgb 8.4 (bl 7-9). Iron 72, ferritin 1715. - Monitor CBC A-fib (CMS/HCC) (HCC) Assessment & Plan Follows [facility]. History of afib with difficulty with rate control requiring cardioversion. Home regimen: amiodarone 200mg daily, metoprolol XL 25mg daily, eliquis 5mg BID. - continue home amiodarone 200mg daily - continue home metoprolol XL 25mg daily - restart eliquis 5mg BID Apical variant hypertrophic cardiomyopathy (HCC) Assessment & Plan - continue home metoprolol XL 25mg daily Hx of CABG Assessment & Plan - continue home metoprolol XL 25mg daily - continue home atorvastatin 80mg daily - continue home zetia * Acute hepatitis Assessment & Plan On presentation here with substantial elevation in LFTs, in hepatocellular pattern with normal Tbili. Of note her LFTs were also elevated/uptrending in August and September of this year. - Noted to have CBD stones, s/p EUE/ERCP on 11/25 ,as noted above. - LFTS down trending slowly. Code status : Full Code Diet : Adult Diet Clear Liquid PT/OT Dispo Rec : / Supplementary Attestation My total encounter time on this service date was 43 minutes which was spent performing a [id number] encounter and personally completing the provider-level activities documented in the note. This includes time spent prior to the visit and after the visit in direct care of the patient. This time does not include time spent in any separately reportable services. Oscar De La Torre MD * Janice Molina MD - 11/28/2023 2:49 PM CDT [employer] Daily Progress Note Subjective Tiera Lobato is a 78 y.o. patient with h/o Afib s/p cardioversion 02/2023 on Eliquis, CAD, MIin 2013 s/p CABG, apical variant HCM, CKD III, and chronic anemia who is admitted for choledocholithiasis. Interval Events: - NAEO - Abdominal pain and headache yesterday after taking clears, lipase elevated -- IVF started and kept NPO overnight - This AM, patient feels much better. Her headache has completely resolved and her abdominal pain is improving. It is a 2/10 today, compared to 10 yesterday. Objective Vitals: 24hr Min/Max: Temp Min: 36.4 ??C (97.5 ??F) Max: 36.7 ??C (98.1 ??F) Pulse Min: 53 Max: 59 BP Min: 104/39 Max: 123/50 Resp Min: 17 Max: 18 SpO2 Min: 95 % Max: 100 % Most Recent : Vitals: 11/28/23 1411 BP: 114/50 Pulse: 54 Resp: 18 Temp: 36.4 ??C (97.5 ??F) SpO2: 99% I/O last 2 completed shifts: In: 1110 [P.O.:60; I.V.:1000; IV Piggyback:50] Out: 200 [Urine:200] I/O this shift: In: 240 [P.O.:240] Out: - Physical Exam: General: No acute distress HEENT: Normocephalic, no conjunctival pallor, no scleral icterus Cardiac: Normal rate; regular rhythm; audible S1 and S2 without appreciable murmurs Pulm: clear to auscultation bilaterally; no wheezes, rales, or rhonchi GI/Abd: Soft, tender to palpation in epigastrium, improving, nondistended MSK: Normal bulk and tone, R lateral leg hematoma, wrapped with santosh bandage Skin: No rash or bruises Extremities: Warm and well perfused, mild LE edema Neuro: AAO x 4, CN II-XII grossly intact, moves all extremities spontaneously Lab/Radiology/Diagnostic Review: Lab Results Component Value Date WBC 3.8 11/27/2023 HGB 8.7 (L) 11/27/2023 HCT 26.9 (L) 11/27/2023 MCV 88.5 11/27/2023 LABPLAT 211 11/27/2023 Lab Results Component Value Date GLUCOSE 93 11/27/2023 CALCIUM 9.3 11/27/2023 SODIUM 137 11/27/2023 POTASSIUM 4.0 11/27/2023 CO2 23 11/27/2023 CHLORIDE 103 11/27/2023 BUNSER 20 11/27/2023 CREATININE 1.23 (H) 11/27/2023 Lab Results Component Value Date ALT 417 (H) 11/27/2023 AST 129 (H) 11/27/2023 ALKPHOS 143 (H) 11/27/2023 BILITOT 0.9 11/27/2023 Lab Results Component Value Date IRON 72 11/25/2023 TIBC See Comment 11/25/2023 FERRITIN 1,715 (H) 11/25/2023 Lab Results Component Value Date INR 1.04 11/25/2023 Studies: No new studies. Assessment Plan Tiera Lobato is a 78 y.o. patient with h/o Afib s/p cardioversion 02/2023 on Eliquis, CAD, MIin 2013 s/p CABG, apical variant HCM, CKD III, and chronic anemia who presents with nausea/vomitingand leg swelling. #Choledocholithiasis #Post-procedural pancreatitis Patient presenting with 5 days of abdominal pain, nausea, and vomiting. Hepatocellular pattern of liver injury seen on labs. CT A/P on 11/23 found small stone in dependent portion of the common bile duct. Overall presentation most consistent with choledocholithiasis, but also considered medication side effect given recent antibiotic prescription. By time of admission, abdominal pain improving and nausea/vomiting resolved. Underwent ERCP on 11/26 c/b pancreatitis on 11/27. PLAN - Biliary following, appreciate recs - signed off -- recommend low fat diet -- repeat ERCP in 6-8 weeks for stent removal, will be arranged by Biliary - continue IVF at 50cc LR/hr - low fat diet, as patient tolerates - trend LFTs daily #R Leg Hematoma Patient with swelling and pain of R leg, which began after a fall on 11/15. Went to PCP who was concerned for cellulitis and prescribed abx. While in ED, swelling increasing. US obtained showing hematoma. XR without acute fracture or osteomyelitis. Trauma Surgery consulted and recommended non-op management. PLAN - Santosh bandages for moderate compression #Afib on Eliquis Follow[facility]. History of afib with difficulty with rate control requiring cardioversion. Home regimen: amiodarone 200mg daily, metoprolol XL 25mg daily, eliquis 5mg BID. PLAN - continue home amiodarone 200mg daily - continue home metoprolol XL 25mg daily - restart eliquis 5mg BID #Chronic Normocytic Anemia Follows [facility]. Anemia thought to be due to iron deficiency as well as CKD stage IIIb. Received iron infusion in 09/2023. On admission hgb 8.4 (bl 7-9). Iron 72, ferritin 1715. PLAN - daily CBC #CKD IIIb Cr 1.18 (bl 1.2-1.4). - monitor daily BMP #Symptomatic Orthostatic Hypotension - discontinued home midodrine 5mg TID given BP 120s-150s/50s-60s #CAD s/p CAGB - continue home metoprolol XL 25mg daily - continue home atorvastatin 80mg daily - continue home zetia #Apical Variant HCM - continue home metoprolol XL 25mg daily F: PO ad hardik E: monitor daily N: low fat diet, as tolerated DVT Prophy: therapeutic AC Code Status: Full Code Dispo: pending ability to take PO Janice Molina MD PGY-1, Internal Medicine Cosigned by Duong Choi MD at 11/29/2023 1:28 PM CDT Associated attestation - Duong Choi MD - 11/29/2023 1:28 PM CDT Attending Documentation I have seen and examined the patient on 11/28/2023. I agree with the findings and plan of care as documented in the resident's/fellow's note. and as discussed with the resident/fellow. Post-ERCP pancreatitis improving this AM w/ 07/26 pain. Gentle IVF today (additional 0.5L). Re-engaged biliary, who recommended advancing CLD to low fat diet (though this resulted in recurrence of pain, de-escalated again to clears). Noted that later this evening, pt had a possible Tb exposure (roommate), transferred to hospitalistservice. Supplementary Attestation Today, I am treating the patient for post-ERCP pancreatitis which is in severe exacerbation, progression, or experiencing treatment side effects as evidenced by still not tolerating low fat diet withrecurrence of abd pain, lipase was 1100, as described in the note. Discussed management of post-ERCP pancreatitis and diet with biliary. The patient is being intensively monitored for drug toxicity from Tylenol by checking LFT's (in s/oprior LFT elevation). Duong Choi MD * Janice Molina MD - 11/27/2023 2:30 PM CDT [facility] [employer] Daily Progress Note Subjective Tiera Lobato is a 78 y.o. patient with h/o Afib s/p cardioversion 02/2023 on Eliquis, CAD, MIin 2012 s/p CABG, apical variant HCM, CKD III, and chronic anemia who is admitted for choledocholithiasis. Interval Events: - NAEO - Yesterday went for ERCP with biliary, sludge cleared and 1 stent placed, no acute complications - This AM, patient is having abdominal pain and headache that started after she tried to drink broth. This is associated with nausea, no vomiting. The abdominal pain is similar to the pain that brought her in. Objective Vitals: 24hr Min/Max: Temp Min: 36.1 ??C (97 ??F) Max: 36.7 ??C (98.1 ??F) Pulse Min: 49 Max: 68 BP Min: 128/52 Max: 161/35 Resp Min: 13 Max: 18 SpO2 Min: 97 % Max: 100 % Most Recent : Vitals: 11/27/23 0823 BP: 131/53 Pulse: 58 Resp: Temp: 36.6 ??C (97.9 ??F) SpO2: 98% I/O last 2 completed shifts: In: 505 [P.O.:5; I.V.:500] Out: 400 [Urine:400] No intake/output data recorded. Physical Exam: General: No acute distress HEENT: Normocephalic, no conjunctival pallor, no scleral icterus Cardiac: Normal rate; regular rhythm; audible S1 and S2 without appreciable murmurs Pulm: clear to auscultation bilaterally; no wheezes, rales, or rhonchi GI/Abd: Soft, tender to palpation in epigastrium, nondistended MSK: Normal bulk and tone, R lateral leg hematoma, wrapped with santosh bandage Skin: No rash or bruises Extremities: Warm and well perfused, no LE edema Neuro: AAO x 4, CN II-XII grossly intact, moves all extremities spontaneously Lab/Radiology/Diagnostic Review: Lab Results Component Value Date WBC 5.2 11/27/2023 HGB 9.3 (L) 11/27/2023 HCT 28.4 (L) 11/27/2023 MCV 87.1 11/27/2023 LABPLAT 220 11/27/2023 Lab Results Component Value Date GLUCOSE 92 11/27/2023 CALCIUM 9.6 11/27/2023 SODIUM 136 11/27/2023 POTASSIUM 3.9 11/27/2023 CO2 22 11/27/2023 CHLORIDE 101 11/27/2023 BUNSER 16 11/27/2023 CREATININE 1.19 (H) 11/27/2023 Lab Results Component Value Date ALT 536 (H) 11/27/2023 AST 184 (H) 11/27/2023 ALKPHOS 155 (H) 11/27/2023 BILITOT 0.9 11/27/2023 Lab Results Component Value Date IRON 72 11/25/2023 TIBC See Comment 11/25/2023 FERRITIN 1,715 (H) 11/25/2023 Lab Results Component Value Date INR 1.04 11/25/2023 Lab Results Component Value Date SPECGRAVU 1.015 11/24/2023 PROTUR 51.6 03/17/2023 BLOODUR Negative 11/24/2023 LEUKESTUR 2+ (A) 11/24/2023 Studies: No new studies. Assessment Plan Tiera Lobato is a 78 y.o. 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 #Choledocholithiasis Patient presenting with 5 days of abdominal pain, nausea, and vomiting. Hepatocellular pattern of liver injury seen on labs. CT A/P on 11/23 found small stone in dependent portion of the common bile duct. Overall presentation most consistent with choledocholithiasis, but also considered medication side effect given recent antibiotic prescription. By time of admission, abdominal pain improving and nausea/vomiting resolved. Pain recurred morning after ERCP. PLAN - Biliary following, appreciate recs - signed off -- advance diet as tolerated -- restart eliquis 11/27 -- repeat ERCP in 6-8 weeks for stent removal, will be arranged by Biliary - continue clear liquid diet - touch base with Pharmacy about options for pain management, limited options due to allergies and liver injury - trend LFTs daily, obtain lipase #R Leg Hematoma Patient with swelling and pain of R leg, which began after a fall on 11/15. Went to PCP who was concerned for cellulitis and prescribed abx. While in ED, swelling increasing. US obtained showing hematoma. XR without acute fracture or osteomyelitis. Trauma Surgery consulted and recommended non-op management. PLAN - Santosh bandages for moderate compression #Afib on Eliquis Follows with [facility]. History of afib with difficulty with rate control requiring cardioversion. Home regimen: amiodarone 200mg daily, metoprolol XL 25mg daily, eliquis 5mg BID. PLAN - continue home amiodarone 200mg daily - continue home metoprolol XL 25mg daily - restart eliquis tomorrow 11/27 #Chronic Normocytic Anemia Follows with [facility]. Anemia thought to be due to iron deficiency as well as CKD stage IIIb. Received iron infusion in 09/2023. On admission hgb 8.4 (bl 7-9). Iron 72, ferritin 1715. PLAN - daily CBC #CKD IIIb Cr 1.18 (bl 1.2-1.4). - monitor daily BMP #Symptomatic Orthostatic Hypotension - discontinue home midodrine 5mg TID given BP 120s-150s/50s-60s #CAD s/p CAGB - continue home metoprolol XL 25mg daily - continue home atorvastatin 80mg daily - continue home zetia #Apical Variant HCM - continue home metoprolol XL 25mg daily F: PO ad hardik E: monitor daily N: CLD DVT Prophy: restart therapeutic AC 11/27 Code Status: Full Code Dispo: pending ability to take PO Janice Molina MD PGY-1, Internal Medicine Cosigned by Duong Choi MD at 11/28/2023 1:46 PM CDT Associated attestation - Duong Choi MD - 11/28/2023 1:46 PM CDT Attending Documentation I have seen and examined the patient on 11/27/2023. I agree with the findings and plan of care as documented in the resident's/fellow's note. and as discussed with the resident/fellow. Underwent ERCP yesterday, EUS suggested stone but ERCP itself revealed only sludge visible; biliarysphincterotomy was performed and one coated metal stent placed. Unfortunately, this AM she developed post-prandial pain; checked lipase which returned 1100. Pt made NPO and started IVF (w/ caution ins/o HCM), cautious use of Tylenol (in s/o elevated LFT s) and NSAIDs (in s/o CKD3) for pain controlin s/o her h/o opioid anaphylaxis (discussing w/ pharmacy). Supplementary Attestation Today, I am treating the patient for post-ERCP pancreatitis which is in severe exacerbation, progression, or experiencing treatment side effects as evidenced by lipase now 1100, as described in the note. Reviewed records from the following unique sources (external institutions or providers from different services): GI. The patient is being intensively monitored for drug toxicity from IVF and pain medications by checking volume exam, vital signs, LFT's, SCr. Duong Choi MD * Tima Rico MD - 11/27/2023 7:49 AM CDT [facility] Acute Care Emergency Surgery Consult Progress Note Date: November 27, 2023 Patient Name: Tiera Lobato Reason for Consult: Length of Stay: 3 POD:1 Day Post-Op Procedure(s): ESOPHAGOGASTRODUODENOSCOPY ENDOSCOPIC ULTRASOUND ENDO ENDOSCOPIC RETROGRADE CHOLANGIOPANCREATOGRAPHY WITH STENT PLACEMENT RAD S AND I BILIARY DUCTAL SYSTEM SUBJECTIVE Interval History: - AF HDS - WBC 5.2 (3.4) - EUS/ERCP today with GI, underwent biliary sphincterotomy and covered metal stent placement. - No motor or sensory deficits in RLE OBJECTIVE Medications: Current Facility-Administered Medications: [Held by Provider] acetaminophen (TYLENOL) tablet 1,000 mg, 1,000 mg, oral, Q8H PRN, Perla Lewis MD amiodarone (PACERONE) tablet 200 mg, 200 mg, oral, Daily, Seamus Pimentel Jr., MD, 200 mg at 11/26/23 08 atorvastatin (LIPITOR) tablet 80 mg, 80 mg, oral, Nightly, Janice Molina MD, 80 mg at 11/26/232016 calcium carbonate-vitamin D3 1,250mg (500mg elemental) - 5 mcg (200 units) per tablet 1 tablet, 1 tablet, oral, Daily, Janice Molina MD, 1 tablet at 11/26/23 08 diclofenac sodium (VOLTAREN) 1 % gel 2 g, 2 g, topical, TID PRN, Janice Molina MD ezetimibe (ZETIA) tablet 10 mg, 10 mg, oral, Daily, Janice Molina MD, 10 mg at 11/26/23 08 metoprolol XL (TOPROL-XL) extended release tablet 25 mg, 25 mg, oral, Daily, Seamus Pimentel Jr., MD, 25 mg at 11/26/[address] (PROTONIX) extended release tablet 40 mg, 40 mg, oral, Daily, Janice Molina MD, 40 mg at 11/26/23 08 polyethylene glycol (MIRALAX) packet 17 g, 17 g, oral, Daily PRN, Janice Molina MD ramelteon (ROZEREM) tablet 8 mg, 8 mg, oral, Nightly PRN, Janice Molina MD sertraline (ZOLOFT) tablet 50 mg, 50 mg, oral, Daily, Seamus Pimentel Jr., MD, 50 mg at sodium chloride 0.9% infusion, 30 mL/hr, intravenous, Continuous, Melisa Pritchett MD Is&Os: I/O last 2 completed shifts: In: 505 [P.O.:5; I.V.:500] Out: 400 [Urine:400] No intake/output data recorded. Physical Exam: 24hr Min/Max: Temp Min: 36 ??C (96.8 ??F) Max: 36.7 ??C (98.1 ??F) Pulse Min: 49 Max: 68 BP Min: 128/52 Max: 161/35 Resp Min: 13 Max: 18 SpO2 Min: 97 % Max: 100 % Vitals: 11/27/23 0402 BP: 133/58 Pulse: 61 Resp: 16 Temp: 36.4 ??C (97.5 ??F) SpO2: 97% GENERAL: Awake, alert, oriented x 4; no acute distress. HEENT: Eyes: Pupils equal, round. NECK: Supple and symmetric. RESPIRATORY: Good respiratory effort. Chest: Symmetrical rise and fall. Symmetrical expansion with respirations. CARDIOVASCULAR: Regular rate and rhythm. GASTROINTESTINAL: Abdomen non-TTP, Abdomen is nondistended. MUSCULOSKELETAL: RLE lateral lower leg purple/red swelling with tenderness to palpation, small areas of skin breakdown, no active drainage or bleeding with palpation. LLE without tenderness or effusion. Range of motion adequate. Strength and tone equal bilaterally, stable. Sensation intact bilaterally. NEUROLOGICAL: Cranial nerves II-XII grossly intact. Sensation intact. PULSES: DP pulses palpable bilaterally Labs/Imaging: Recent Labs Lab Units 11/27/234211/25/23190811/25/23 0647 WBC K/cumm 5.2 3.4* 3.8 HEMOGLOBIN g/dL 9.3* 8.5* 8.4* HEMATOCRIT % 28.4* 26.7* 26.2* PLATELETS K/cumm 220 213 198 Recent Labs Lab Units 11/27/234211/25/23190811/25/23 0647 SODIUM mmol/L 136 135 135 POTASSIUM PLASMA mmol/L 3.9 3.9 4.0 CHLORIDE mmol/L 101 103 102 CO2 mmol/L 22 23 20* BUN SERUM mg/dL 16 13 11 CREATININE mg/dL 1.19* 1.22* 1.18* GLUCOSE mg/dL 92 99 84 CALCIUM mg/dL 9.6 9.8 9.8 Recent Labs Lab Units 11/25/236 PROTIME (PT) sec 11.8 INR 1.04 XR Tibia Fibula Right 2 Views Result Date: 11/25/2023 No priors are available for review. A right total knee arthroplasty is noted. There is soft tissue swelling of the lateral upper/mid calf. No acute fracture. No specific radiographic evidence of osteomyelitis.. Vascular calcifications Electronically signed by: Stefanie Burden M.D. US Lower Extremity Right Limited Result Date: 11/25/2023 Hypoechoic subcutaneous collection without vascularity or hyperemia compatible with an evolving hematoma. Dictated by: Roberto Campbell MD The radiology attending physician has personally reviewed this study, and had reviewed and/or edited this written report and agrees with it. Electronically signed by:Va Hernandez M.D. ASSESSMENT AND PLAN: Tiera Lobato is a 78 y.o. female with PMH of IBS, Afib s/p cardioversion 02/2023 on Eliquis (last taken 11/23/23), CAD, PA in 2013 s/p CABG, HTN, HLD, apical variant HCM, CKD III not on HD, and chronic anemia who presented yesterday to ED for intractable nausea, vomiting found to have non-obstructive CBD stone. Additionally found to have R leg swelling that developed after fall /, with initial concern by PCP to be cellulitis with abx prescribed but not taken due to abdominal pain. US in ED showing likely hematoma. Motor fx, sensory fx and pulses intact. Patient states numbing medicationwas injected yesterday but no procedures were performed. WBC 3.8, hgb 8.4 (baseline anemic with hgb8- 8.5). RLE XR without acute fx. #R leg hematoma - santosh bandage applied to provide moderate compression, can loosen if uncomfortable to patient - OK for ice application to reduce swelling. - monitor for skin changes, drainage - monitor for loss of sensory, motor fx, worsening pain in RLE - no acute indication for evacuation or decompression as infection risk outweighs benefits #choledocholithiasis - Appreciate GI recommendations - EUS/ERCP today with GI, underwent biliary sphincterotomy and covered metal stent placement. - Ensure abdominal pain improves post procedure - [facility] will sign off at this time. Please feel free to reach out to the number below for any questions or concerns. Please call the [facility] Inpatient Consult Phone with any questions or concerns regarding this patient. Tima Rico MD Resident Physician General Surgery [facility] Inpatient Consult [facility] ED Consult [facility] Outpatient Clinic - option 1 Cosigned by Cristian Liang DO at 11/27/2023 7:19 PM CDT Associated attestation - Cristian Liang DO - 11/27/2023 7:19 PM CDT I have seen and examined the patient on the date above. I agree with or have edited the findings and plan of care as documented in the resident or NELL note. Cristian Liang DO Section of Acute and Critical Care Surgery [facility] [employer] * Carmen West MD - 11/26/2023 6:51 PM CDT [facility] Acute Care Emergency Surgery Consult Progress Note Date: November 26, 2023 Patient Name: Tiera Lobato Reason for Consult: Length of Stay: 2 POD:Day of Surgery Procedure(s): ESOPHAGOGASTRODUODENOSCOPY ENDOSCOPIC ULTRASOUND ENDO ENDOSCOPIC RETROGRADE CHOLANGIOPANCREATOGRAPHY WITH STENT PLACEMENT RAD S AND I BILIARY DUCTAL SYSTEM SUBJECTIVE Interval History: - AF HDS - WBC 3.4 (3.8) - EUS/ERCP today with GI, underwent biliary sphincterotomy and covered metal stent placement. - No motor or sensory deficits in RLE OBJECTIVE Medications: Current Facility-Administered Medications: [Held by Provider] acetaminophen (TYLENOL) tablet 1,000 mg, 1,000 mg, oral, Q8H PRN, Perla Lewis MD amiodarone (PACERONE) tablet 200 mg, 200 mg, oral, Daily, Seamus Pimentel Jr., MD, 200 mg at 11/26/23 0831 atorvastatin (LIPITOR) tablet 80 mg, 80 mg, oral, Nightly, Janice Molina MD calcium carbonate-vitamin D3 1,250mg (500mg elemental) - 5 mcg (200 units) per tablet 1 tablet, 1 tablet, oral, Daily, Janice Molina MD, 1 tablet at 11/26/23 08 diclofenac sodium (VOLTAREN) 1 % gel 2 g, 2 g, topical, TID PRN, Janice Molina MD ezetimibe (ZETIA) tablet 10 mg, 10 mg, oral, Daily, Janice Molina MD, 10 mg at 11/26/23 08 metoprolol XL (TOPROL-XL) extended release tablet 25 mg, 25 mg, oral, Daily, Seamus Pimentel Jr., MD, 25 mg at 11/26/[address] (PROTONIX) extended release tablet 40 mg, 40 mg, oral, Daily, Janice Molina MD, 40 mg at 11/26/23 0831 polyethylene glycol (MIRALAX) packet 17 g, 17 g, oral, Daily PRN, Janice Molina MD ramelteon (ROZEREM) tablet 8 mg, 8 mg, oral, Nightly PRN, Janice Molina MD sertraline (ZOLOFT) tablet 50 mg, 50 mg, oral, Daily, Seamus Pimentel Jr., MD, 50 mg at sodium chloride 0.9% infusion, 30 mL/hr, intravenous, Continuous, Melisa Pritchett MD Is&Os: No intake/output data recorded. I/O this shift: In: 500 [I.V.:500] Out: 0 Physical Exam: 24hr Min/Max: Temp Min: 36 ??C (96.8 ??F) Max: 36.7 ??C (98.1 ??F) Pulse Min: 49 Max: 68 BP Min: 128/52 Max: 161/35 Resp Min: 13 Max: 18 SpO2 Min: 95 % Max: 100 % Vitals: 11/26/23 1817 BP: 158/46 Pulse: 51 Resp: Temp: SpO2: 99% GENERAL: Awake, alert, oriented x 4; no acute distress. HEENT: Eyes: Pupils equal, round. NECK: Supple and symmetric. RESPIRATORY: Good respiratory effort. Chest: Symmetrical rise and fall. Symmetrical expansion with respirations. CARDIOVASCULAR: Regular rate and rhythm. GASTROINTESTINAL: Abdomen non-TTP, Abdomen is nondistended. MUSCULOSKELETAL: RLE lateral lower leg purple/red swelling with tenderness to palpation, small areas of skin breakdown, no active drainage or bleeding with palpation. LLE without tenderness or effusion. Range of motion adequate. Strength and tone equal bilaterally, stable. Sensation intact bilaterally. NEUROLOGICAL: Cranial nerves II-XII grossly intact. Sensation intact. PULSES: DP pulses palpable bilaterally Labs/Imaging: Recent Labs Lab Units 11/25/23 1909 11/25/23 0647 11/24/23 0949 WBC K/cumm 3.4* 3.8 3.2* HEMOGLOBIN g/dL 8.5* 8.4* 8.8* HEMATOCRIT % 26.7* 26.2* 27.6* PLATELETS K/cumm 213 198 191 Recent Labs Lab Units 11/25/23 1909 11/25/23 0647 11/24/23 0949 SODIUM mmol/L 135 135 135 POTASSIUM PLASMA mmol/L 3.9 4.0 4.0 CHLORIDE mmol/L 103 102 103 CO2 mmol/L 23 20* 23 BUN SERUM mg/dL 13 11 12 CREATININE mg/dL 1.22* 1.18* 1.29* GLUCOSE mg/dL 99 84 106 CALCIUM mg/dL 9.8 9.8 9.7 Recent Labs Lab Units 11/25/23 2126 PROTIME (PT) sec 11.8 INR 1.04 XR Tibia Fibula Right 2 Views Result Date: 11/25/2023 No priors are available for review. A right total knee arthroplasty is noted. There is soft tissue swelling of the lateral upper/mid calf. No acute fracture. No specific radiographic evidence of osteomyelitis.. Vascular calcifications Electronically signed by: Stefanie Burden M.D. US Lower Extremity Right Limited Result Date: 11/25/2023 Hypoechoic subcutaneous collection without vascularity or hyperemia compatible with an evolving hematoma. Dictated by: Roberto Campbell MD The radiology attending physician has personally reviewed this study, and had reviewed and/or edited this written report and agrees with it. Electronically signed by:Va Hernandez M.D. ASSESSMENT AND PLAN: Tiera Lobato is a 78 y.o. 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 Additionally found to have R leg swelling that developed after fall 11/15, with initial concern by PCP to be cellulitis with abx prescribed but not taken due to abdominal pain. US in ED showing likely hematoma. Motor fx, sensory fx and pulses intact. Patient states numbing medicationwas injected yesterday but no procedures were performed. WBC 3.8, hgb 8.4 (baseline anemic with hgb8- 8.5). RLE XR without acute fx. #R leg hematoma - santosh bandage applied to provide moderate compression, can loosen if uncomfortable to patient - monitor for skin changes, drainage - monitor for loss of sensory, motor fx, worsening pain in RLE - no acute indication for evacuation or decompression as infection risk outweighs benefits #choledocholithiasis - GI consult - EUS/ERCP today with GI, underwent biliary sphincterotomy and covered metal stent placement. - Ensure abdominal pain improves post procedure Please call the [facility] Inpatient Consult Phone with any questions or concerns regarding this patient. Carmen West MD Resident Physician General Surgery [facility] Inpatient Consult [facility] ED Consult [facility] Outpatient Clinic - option 1 Cosigned by Cristian Liang DO at 11/27/2023 8:39 PM CDT Associated attestation - Cristian Liang DO - 11/27/2023 8:39 PM CDT I have seen and examined the patient on the date above. I agree with or have edited the findings and plan of care as documented in the resident or NELL note. Cristian Liang DO Section of Acute and Critical Care Surgery [facility] [employer] * Janice Molina MD - 11/26/2023 2:23 PM CDT [employer] Daily Progress Note Subjective Tiera Lobato is a 78 y.o. patient with h/o Afib s/p cardioversion 02/2023 on Eliquis, CAD, MIin 2012 s/p CABG, apical variant HCM, CKD III, and chronic anemia who is admitted for choledocholithiasis. Interval Events: - NAEO - This AM, patient feels well. She is not having any abdominal pain or nausea. Her leg continues cecilia painful, but is improving. Objective Vitals: 24hr Min/Max: Temp Min: 36 ??C (96.8 ??F) Max: 36.7 ??C (98.1 ??F) Pulse Min: 55 Max: 64 BP Min: 133/57 Max: 157/57 Resp Min: 13 Max: 18 SpO2 Min: 93 % Max: 99 % Most Recent : Vitals: 11/26/23 1302 BP: 148/64 Pulse: 60 Resp: 13 Temp: 36 ??C (96.8 ??F) SpO2: 97% No intake/output data recorded. No intake/output data recorded. Physical Exam: General: Not in distress, appears comfortable HEENT: Normocephalic, no conjunctival pallor, no scleral icterus Cardiac: Normal rate; regular rhythm; audible S1 and S2 without appreciable murmurs Pulm: clear to auscultation bilaterally; no wheezes, rales, or rhonchi GI/Abd: Soft, nontender, nondistended MSK: Normal bulk and tone, R lateral leg hematoma, wrapped with santosh bandage Skin: No rash or bruises Extremities: Warm and well perfused, no LE edema Neuro: AAO x 4, CN II-XII grossly intact, moves all extremities spontaneously Lab/Radiology/Diagnostic Review: Lab Results Component Value Date WBC 3.4 (L) 11/25/2023 HGB 8.5 (L) 11/25/2023 HCT 26.7 (L) 11/25/2023 MCV 88.4 11/25/2023 LABPLAT 213 11/25/2023 Lab Results Component Value Date GLUCOSE 99 11/25/2023 CALCIUM 9.8 11/25/2023 SODIUM 135 11/25/2023 POTASSIUM 3.9 11/25/2023 CO2 23 11/25/2023 CHLORIDE 103 11/25/2023 BUNSER 13 11/25/2023 CREATININE 1.22 (H) 11/25/2023 Lab Results Component Value Date ALT 683 (H) 11/25/2023 AST 257 (H) 11/25/2023 ALKPHOS 152 (H) 11/25/2023 BILITOT 0.8 11/25/2023 Lab Results Component Value Date IRON 72 11/25/2023 TIBC See Comment 11/25/2023 FERRITIN 1,715 (H) 11/25/2023 Lab Results Component Value Date INR 1.04 11/25/2023 Lab Results Component Value Date SPECGRAVU 1.015 11/24/2023 PROTUR 51.6 03/17/2023 BLOODUR Negative 11/24/2023 LEUKESTUR 2+ (A) 11/24/2023 Studies: No new studies. Assessment Plan Tiera Lobato is a 78 y.o. patient with h/o Afib s/p cardioversion 02/2023 on Eliquis, CAD, MIin 2013 s/p CABG, apical variant HCM, CKD III, and chronic anemia who presents with nausea/vomitingand leg swelling. #Choledocholithiasis Patient presenting with 5 days of abdominal pain, nausea, and vomiting. Hepatocellular pattern of liver injury seen on labs. CT A/P on 11/23 found small stone in dependent portion of the common bile duct. Overall presentation most consistent with choledocholithiasis, but also considered medication side effect given recent antibiotic prescription. By time of admission, abdominal pain improving and nausea/vomiting resolved. PLAN - Biliary following, appreciate recs -- Planning for ERCP today, 11/25 -- No need for IPAP consult prior, per discussion with Biliary -- Hold anticoagulation prior to ERCP - trend LFTs daily #R Leg Hematoma Patient with swelling and pain of R leg, which began after a fall on 11/15. Went to PCP who was concerned for cellulitis and prescribed abx. While in ED, swelling increasing. US obtained showing hematoma. XR without acute fracture or osteomyelitis. Trauma Surgery consulted and recommended non-op management. PLAN - Santosh bandages for moderate compression - Avoid tylenol iso elevated transaminases #Afib on Eliquis Follows with [facility]. History of afib with difficulty with rate control requiring cardioversion. Home regimen: amiodarone 200mg daily, metoprolol XL 25mg daily, eliquis 5mg BID. PLAN - continue home amiodarone 200mg daily - continue home metoprolol XL 25mg daily - hold home eliquis for procedure #Chronic Normocytic Anemia Follows with [facility]. Anemia thought to be due to iron deficiency as well as CKD stage IIIb. Received iron infusion in 09/2023. On admission hgb 8.4 (bl 7-9). Iron 72, ferritin 1715. PLAN - daily CBC #CKD IIIb Cr 1.18 (bl 1.2-1.4). - monitor daily BMP #Symptomatic Orthostatic Hypotension - discontinue home midodrine 5mg TID given BP 120s-150s/50s-60s #CAD s/p CAGB - continue home metoprolol XL 25mg daily - continue home atorvastatin 80mg daily - continue home zetia #Apical Variant HCM - continue home metoprolol XL 25mg daily F: PO ad hardik E: monitor daily N: NPO DVT Prophy: hold for procedure Code Status: Full Code Dispo: pending ERCP Janice Molina MD PGY-1, Internal Medicine Cosigned by Duong Choi MD at 11/26/2023 8:16 PM CDT Associated attestation - Duong Choi MD - 11/26/2023 8:16 PM CDT Attending Documentation I have seen and examined the patient on 11/26/23. I agree with the findings and plan of care as documented in the resident's/fellow's note. and as discussed with the resident/fellow. See yesterday's H&P for today's attestation. Supplementary Attestation Today, I am treating the patient for choledocholithiasis which is in severe exacerbation, progression, or experiencing treatment side effects as evidenced by requiring procedural intervention in formof ERCP, as described in the note. Reviewed records from the following unique sources (external institutions or providers from different services): GI. Duong Choi MD * Viky Kraus, RD - 11/26/2023 10:20 AM CDT NUTRITION ASSESSMENT Nutrition Status: Patient at risk for malnutrition, but does not meet ASPEN criteria for malnutrition. REASON FOR ASSESSMENT: Screened at Nutrition Risk - At Risk MST Score Encounter Date: 11/26/23 10:26 AM Admission Date: 11/24/2023 LOS: 2 days HPI: Patient is a 78 y.o. female with h/o Afib s/p cardioversion 02/2023 on Eliquis, CAD, PA in 2012 s/p CABG, apical variant HCM, CKD III, and chronic anemia who presents with nausea/vomiting and leg swelling. Objective Past Medical History: Diagnosis Date Acid reflux Heart murmur High cholesterol History of blood clots 1960s in leg as teenager - had phlebitis History of PA (myocardial infarction) 2012 History of vertebral fracture 2017 HTN (hypertension) IBS (irritable bowel syndrome) Vertigo Past Surgical History: Procedure Laterality Date CARDIOVERSION 03/2023 COLON SURGERY 1992 Repair burst colon CORONARY ARTERY BYPASS GRAFT 2012 Double by-pass - [facility] FLUORO GUIDED INJECTION HIP RIGHT Right 05/16/2022 FLUORO GUIDED INJECTION HIP RIGHT Right 08/15/2022 FLUORO GUIDED INJECTION HIP RIGHT Right 12/10/2022 FLUORO GUIDED INJECTION HIP RIGHT Right 05/13/[address] James ([place], [place]) TOTAL KNEE ARTHROPLASTY Right 2018 Social History Tobacco Use Smoking status: Never Passive exposure: Current Smokeless tobacco: Never Substance and Sexual Activity Drug use: Yes Types: Medical marijuana Comment: Tablets - tid Sexual activity: None Alcohol Use: Not At Risk (11/25/2023) AUDIT-C Frequency of Alcohol Consumption: Never Average Number of Drinks: Patient does not drink Frequency of Binge Drinking: Never MEDICATION/LAB REVIEW: Scheduled Meds: amiodarone, 200 mg, oral, Daily atorvastatin, 80 mg, oral, Nightly calcium carbonate-vitamin D3, 1 tablet, oral, Daily ezetimibe, 10 mg, oral, Daily metoprolol XL, 25 mg, oral, Daily pantoprazole DR, 40 mg, oral, Daily sertraline, 50 mg, oral, Daily Continuous Infusions: PRN Meds: [Held by Provider] acetaminophen diclofenac sodium polyethylene glycol ramelteon Recent Labs Lab Units 11/25/23 1909 SODIUM mmol/L 135 POTASSIUM PLASMA mmol/L 3.9 CHLORIDE mmol/L 103 CO2 mmol/L 23 BUN SERUM mg/dL 13 CREATININE mg/dL 1.22* [id number] mL/min/1.73 m2 46* CALCIUM mg/dL 9.8 ALBUMIN g/dL 3.5 PHOSPHORUS PLASMA mg/dL 3.0 MAGNESIUM mg/dL 1.8 Recent Labs Lab Units 11/25/23 1909 11/25/23 0647 11/24/23 0949 GLUCOSE mg/dL 99 84 106 ALT Date Value Ref Range Status 11/25/2023 683 (H) 7 - 45 Units/L Final AST Date Value Ref Range Status 11/25/2023 257 (H) 10 - 45 Units/L Final Alk phos Date Value Ref Range Status 11/25/2023 152 (H) 40 - 130 Units/L Final Lipase Date Value Ref Range Status 11/24/2023 31 10 - 99 Units/L Final Lab Results Component Value Date HGBA1C 5.8 (H) 02/18/2023 HDL 60 08/20/2023 LDLCALC 76 08/20/2023 CHOL 158 08/20/2023 TRIG 109 08/20/2023 NURSING ASSESSMENT: Nixon Scale Score: 20 Skin Integrity: Bruising, Blanchable redness Vital Signs BP: 155/54 Temp: 36.7 ??C (98.1 ??F) Pulse: 57 Resp: 18 SpO2: 99 % No intake or output data in the 24 hours ending 11/26/23 1026 Adult Malnutrition Scoring Tool (MST) What diet do you follow at home?: regular Have You Recently Lost Weight Without Trying?: Yes (Comment) How Much Weight Have You Lost?: 2 - 13 lb Have you been eating poorly because of a decreased appetite?: Yes Malnutrition Screening Tool (MST) Score: 2 Hunger Screen - Admission Within the past 12 months the food we bought just didn't last and we didn't have money to get more.: Never true Within the past 12 months we worried whether our food would run out before we got money to buy more.: Never true Within the past 12 months, you worried that your food would run out before you got the money to buymore.: Never true Within the past 12 months, the food you bought just didn't last and you didn't have money to get more.: Never true Anthropometrics Weight: 71.7 kg (158 lb) Admission Weight : 71.8 kg Weight Change: -0.13 kg (-0.29 lbs) IBW/kg (Calculated) : 54.4 kg Height: 162.6 cm (5' 4 ) Weight in (lb) to have BMI = 25: 145.3 BMI (Calculated): 27.1 Wt Readings from Last 10 Encounters: 11/25/23 71.7 kg (158 lb) 10/30/23 71.8 kg (158 lb 6.4 oz) 10/03/23 72 kg (158 lb 12.8 oz) 08/20/23 74.4 kg (164 lb) 03/21/23 75.2 kg (165 lb 12.8 oz) 01/20/23 83 kg (182 lb 15.7 oz) 01/13/23 85.7 kg (189 lb) 11/27/22 78.7 kg (173 lb 9.6 oz) 10/18/22 84.6 kg (186 lb 8 oz) 05/01/22 79.8 kg (176 lb) ESTIMATED NEEDS: . 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 Reports 10# recent wt loss. Per chart review, pt has lost 8# x 8 months (not significant). Pt declined all oral nutrition supplements. 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 Reports good dentition. Pt reports when things are going well, she eats 2 meals/day andsnacks on junk food. Labs noted Pt does not meet ASPEN criteria for malnutrition but is at risk given decreased po intake and weight loss. ASPEN MALNUTRITION ASSESSMENT: Date of completion: 11/26/23 NUTRITION FOCUSED PHYSICAL EXAM: Not clinically indicated, no concerns for malnutrition at this time. NUTRITION DIAGNOSIS: Nutrition Diagnosis 1: Predicted suboptimal energy intake Related to: Loss of appetite Evidenced by: Patient interview INTERVENTION(S): Summary: Initial assessment REvisit oral nutrition supplements at follow-up GOAL(S): Oral intake to meet 75% estimated nutritional needs by next assessment MONITORING/EVALUATION: Blood glucoses, Appetite, Electrolyte changes, Labs, Plan of care, Stool patterns, PO intake, Weight changes documented in this encounter H&P Notes * Janice Molina MD - 11/25/2023 4:45 PM CDT [employer] History and Physical Subjective Chief Concern: Nausea and vomiting HPI: Tiera Lobato is a 78 y.o. patient with h/o Afib s/p cardioversion 02/2023 on Eliquis, CAD, MIin 2013 s/p CABG, apical variant HCM, CKD III, and chronic anemia who presents with nausea/vomitingand leg swelling. Patient presented to ED on 11/23 for 5 days of nausea, vomiting, and diarrhea. She had recently beenseen by her PCP and prescribed antibiotics for a wound on her leg. She was unsure if her GI symptoms started before or after starting the antibiotics. On arrival to the ED, afebrile, HR 65, BP 162/53, satting well on room air. Initial labs pertinent for Alk phos 185, AST 673, ALT 1087, lipase 31, trops negative. CT A/P was obtained showing small stone in the common bile duct. Biliary was consulted and planned to complete ERCP on 11/25, after 48hr off anticoagulation. While she was in the ED, she continued to have R leg swelling which began after a fall on 11/15. US was consistent with hematoma. XR showed no acute fracture. Trauma Surgery was consulted and recommended management non-op with santosh bandage for compression. On arrival to the floor, patient was feeling well. She continued to have abdominal pain, but it wasimproved from prior. Her pain was located in her mid abdomen and epigastric region. She has not hadany nausea or vomiting since being in the hospital. Her diarrhea has also resolved and she had a formed BM today. Past Medical History: Diagnosis Date Acid reflux Heart murmur High cholesterol History of blood clots 1960s in leg as teenager - had phlebitis History of PA (myocardial infarction) 2012 History of vertebral fracture 2017 HTN (hypertension) IBS (irritable bowel syndrome) Vertigo Past Surgical History: Procedure Laterality Date CARDIOVERSION 03/2023 COLON SURGERY 1993 Repair burst colon CORONARY ARTERY BYPASS GRAFT 2013 Double by-pass - [facility] FLUORO GUIDED INJECTION HIP RIGHT Right 05/16/2022 FLUORO GUIDED INJECTION HIP RIGHT Right 08/15/2022 FLUORO GUIDED INJECTION HIP RIGHT Right 12/10/2022 FLUORO GUIDED INJECTION HIP RIGHT Right 05/13/[address] James ([place], [place]) TOTAL KNEE ARTHROPLASTY Right 2017 (Not in a hospital admission) Allergies Allergen Reactions Codeine Hives and Shortness of breath Latex Itching Milk Nausea & Vomiting Tramadol Nausea & Vomiting and Unknown Social History Tobacco Use Smoking status: Never Passive exposure: Current Smokeless tobacco: Never Substance and Sexual Activity Drug use: Yes Types: Medical marijuana Comment: Tablets - tid Sexual activity: None Alcohol Use: Not At Risk (09/28/2020) AUDIT-C Frequency of Alcohol Consumption: Never Average Number of Drinks: Not on file Frequency of Binge Drinking: Not on file Family History Problem Relation Age of Onset Prostate cancer Father Stroke Child Hypertension Child Review of Systems: As in HPI. Objective Vitals: Arrival Vitals [11/24/23 0807] Temp 36.6 ??C (97.8 ??F) Pulse 65 Resp 14 BP 162/53 SpO2 98 % Temp src Oral Heart Rate Source Patient Position BP Location FiO2 (%) 24hr Min/Max: Pulse Min: 56 Max: 75 BP Min: 126/74 Max: 157/70 Resp Min: 16 Max: 16 SpO2 Min: 91 % Max: 98 % Most Recent : Vitals: 11/25/23 1300 BP: 137/59 Pulse: 58 Resp: Temp: SpO2: 98% No intake/output data recorded. No intake/output data recorded. Physical exam General: Not in distress, appears comfortable HEENT: Normocephalic, no conjunctival pallor, no scleral icterus Cardiac: Normal rate; regular rhythm; audible S1 and S2 without appreciable murmurs, rubs, or gallops; 2+ radial pulses; no LE edema Pulm: clear to auscultation bilaterally; no wheezes, rales, or rhonchi GI/Abd: Soft, non-distended, mild tenderness in epigastrium and periumbilical region MSK: Normal bulk and tone Skin: No rash or bruises Extremities: Warm and well perfused, hematoma present on R lateral lower leg Neuro: AAO x 4, CN II-XII grossly intact, moves all extremities spontaneously Lab/Radiology/Diagnostic Review: Lab Results Component Value Date WBC 3.8 11/25/2023 HGB 8.4 (L) 11/25/2023 HCT 26.2 (L) 11/25/2023 MCV 87.3 11/25/2023 LABPLAT 198 11/25/2023 Lab Results Component Value Date GLUCOSE 84 11/25/2023 CALCIUM 9.8 11/25/2023 SODIUM 135 11/25/2023 POTASSIUM 4.0 11/25/2023 CO2 20 (L) 11/25/2023 CHLORIDE 102 11/25/2023 BUNSER 11 11/25/2023 CREATININE 1.18 (H) 11/25/2023 Lab Results Component Value Date ALT 796 (H) 11/25/2023 AST 364 (H) 11/25/2023 ALKPHOS 166 (H) 11/25/2023 BILITOT 0.9 11/25/2023 Lab Results Component Value Date IRON 31 (L) 10/03/2023 TIBC 424 (H) 10/03/2023 FERRITIN 43 10/03/2023 Lab Results Component Value Date INR 1.78 (H) 02/17/2023 Lab Results Component Value Date HGBA1C 5.8 (H) 02/18/2023 Lab Results Component Value Date TSH 2.14 02/18/2023 Lab Results Component Value Date SPECGRAVU 1.015 11/24/2023 PROTUR 51.6 03/17/2023 BLOODUR Negative 11/24/2023 LEUKESTUR 2+ (A) 11/24/2023 Lab Results Component Value Date TROPONINI <0.03 05/10/2017 Lab Results Component Value Date CHOL 158 08/20/2023 Lab Results Component Value Date HDL 60 08/20/2023 Lab Results Component Value Date LDLCALC 76 08/20/2023 LDL 87 09/04/2015 LDLDIRECT 93 05/02/2021 Lab Results Component Value Date TRIG 109 08/20/2023 No components found for: 25OHVITD Studies: CT A/P, 11/23: IMPRESSION: 1. Tiny hyperdensity within the dependent portion of the common bile duct is most consistent with a small stone. There is mild central intrahepatic and mild to moderate extrahepatic biliary duct dilatation to level the ampulla, similar in severity compared to prior examination. Consider further evaluation with ERCP. 2. New but age indeterminate moderate to severe compression fracture at T12. Unchanged moderate severe height loss at T11. There are also healing right inferior and superior pubic rami fractures which are new from the prior exam. Assessment Plan Tiera Lobato is a 78 y.o. patient with h/o Afib s/p cardioversion 02/2023 on Eliquis, CAD, MIin 2013 s/p CABG, apical variant HCM, CKD III, and chronic anemia who presents with nausea/vomitingand leg swelling. #Choledocholithiasis Patient presenting with 5 days of abdominal pain, nausea, and vomiting. Hepatocellular pattern of liver injury seen on labs. CT A/P on 11/23 found small stone in dependent portion of the common bile duct. Overall presentation most consistent with choledocholithiasis, but also considered medication side effect given recent antibiotic prescription. By time of admission, abdominal pain improving and nausea/vomiting resolved. PLAN - Biliary following, appreciate recs -- Tentative plan for ERCP on Saturday 11/25 -- IPAP consult in AM -- Hold anticoagulation prior to ERCP - trend LFTs daily #R Leg Hematoma Patient with swelling and pain of R leg, which began after a fall on 11/15. Went to PCP who was concerned for cellulitis and prescribed abx. While in ED, swelling increasing. US obtained showing hematoma. XR without acute fracture or osteomyelitis. Trauma Surgery consulted and recommended non-op management. PLAN - Santosh bandages for moderate compression - Tylenol PRN for pain #Afib on Eliquis Follows with [facility]. History of afib with difficulty with rate control requiring cardioversion. Home regimen: amiodarone 200mg daily, metoprolol XL 25mg daily, eliquis 5mg BID. PLAN - continue home amiodarone 200mg daily - continue home metoprolol XL 25mg daily - hold home eliquis in anticipation of possible procedure #Chronic Normocytic Anemia Follows with [facility]. Anemia thought to be due to iron deficiency as well as CKD stage IIIb. Received iron infusion in 09/2023. On admission hgb 8.4 (bl 7-9). PLAN - daily CBC - iron studies #CKD IIIb Cr 1.18 (bl 1.2-1.4). - monitor daily BMP #Symptomatic Orthostatic Hypotension - continue home midodrine 5mg TID #CAD s/p CAGB - continue home metoprolol XL 25mg daily - continue home atorvastatin 80mg daily - continue home zetia #Apical Variant HCM - continue home metoprolol XL 25mg daily F: PO ad hardik E: monitor daily N: NPO MN DVT Prophy: hold for upcoming procedure Code Status: Full Code Dispo: Med [employer] Janice Molina MD PGY-1, Internal Medicine Cosigned by Duong Choi MD at 11/26/2023 8:15 PM CDT Associated attestation - Duong Choi MD - 11/26/2023 8:15 PM CDT Attending Documentation I have seen and examined the patient on 11/26/23. I agree with the findings and plan of care as documented in the resident's/fellow's note. and as discussed with the resident/fellow. 78 yo F who presented with 5 days of nausea, vomiting, abd pain, and diarrhea; found to have elevated LFT's in hepatocellular pattern predominantly (?DILI 2/2 Augmentin), but also choledocholithiasis(small stone in CBD) on CT. Plan per biliary is for ERCP today (11/25). Supplementary Attestation Today, I am treating the patient for choledocholithiasis which is in severe exacerbation, progression, or experiencing treatment side effects as evidenced by requiring procedural intervention in formof ERCP, as described in the note. Reviewed records from the following unique sources (external institutions or providers from different services): GI. Duong Choi MD documented in this encounter Procedure Notes * Heydi Fenton MD - 11/26/2023 4:02 PM CDTAssociated Order(s): UPPER EUS GI ENDOSCOPY [facility] Patient Name: Tiera Lobato Procedure Date: 11/26/2023 4:02 PM Date of : 1945 Admit Type: Inpatient Age: 78 Gender: Female Attending MD: Heydi Fenton M.D. Room: [facility] ENDOSCOPY ROOM 2 Note Status: Finalized Procedure: Upper EUS Indications: Obstruction of bile duct on CT with stone, Elevated liver enzymes. AST/ALT elevation, normal bilirubin. Referring MD: Duong Choi, Cristian Ling M.D. Providers: Heydi Fenton M.D., Marco Antonio Gusman M.D. Medicines: Monitored Anesthesia Care Complications: No immediate complications. Estimated Blood Loss: Estimated blood loss: none. Procedure: Pre-Anesthesia Assessment: - Prior to the procedure, a History and Physical was performed, and patient medications, allergies and sensitivities were reviewed. The patient's tolerance of previous anesthesia was reviewed. - The risks and benefits of the procedure and the sedation options and risks were discussed with the patient. All questions were answered and informed consent was obtained. - Immediately prior to administration of medications, the patient was re-assessed for adequacy to receive sedatives. The risks, benefits and alternatives were discussed and informed consent was obtained.The Olympus curved linear array therapeutic endosonoscope [id number] was introduced through the mouth, and advanced to the duodenum for ultrasound examination from the stomach and duodenum The upper EUS was accomplished without difficulty. The patient tolerated the procedure well. Findings: ENDOSONOGRAPHIC FINDING: : The stomach, duodenum and adjacent structures were visualized endosonographically. One stone was visualized endosonographically in the common bile duct. The stone measured 5 mm in greatest dimension. The stone was round. It was hyperechoic and characterized by shadowing. There was dilation in the main bile duct which measured up to 14 mm. There was no sign of significant endosonographic abnormality in the pancreatic head, genu of the pancreas, pancreatic body and pancreatic tail. The pancreas was well visualized, the pancreatic duct was well visualized from ampulla to tail, the pancreatic duct was thin in caliber, the pancreatic duct was regular in contour. There was no sign of significant endosonographic abnormality in the left lobe of the liver. No focal pathology was identified. No lymphadenopathy seen. There was no sign of significant endosonographic abnormality involving the celiac trunk. Impression: - One stone was visualized endosonographically in the common bile duct. - There was dilation in the entire main bile duct which measured up to 12 mm. - There was no sign of significant pathology in the pancreatic head, genu of the pancreas, pancreatic body and pancreatic tail. - There was no evidence of significant pathology in the left lobe of the liver. - The celiac trunk was endosonographically normal. - No specimens collected. Recommendation: - Perform ERCP today as scheduled. Please refer to same day ERCP report for findings and additional recommendations. Attending Participation: I was present and participated during the entire procedure, including non-martinez portions. Electronically signed by Heydi Fenton MD Heydi Fenton M.D. 11/26/2023 5:16:47 PM . Number of Addenda: 0 Note Initiated On: 11/26/2023 4:02 PM * Heydi Fenton MD - 11/26/2023 4:01 PM CDTAssociated Order(s): ERCP GI ENDOSCOPY [facility] Patient Name: Tiera Lobato Procedure Date: 11/26/2023 4:01 PM Date of : 1945 Admit Type: Inpatient Age: 78 Gender: Female Attending MD: Heydi Fenton M.D. Room: [facility] ENDOSCOPY ROOM 2 Note Status: Finalized Procedure: ERCP Indications: Bile duct stone seen on EUS and on CTAP, normal bilirubin Referring MD: Duong Choi, Cristian Ling M.D. Providers: Heydi Fenton M.D., Marco Antonio Gusman M.D. Medicines: Monitored Anesthesia Care, Indomethacin 100 mg [place] Complications: No immediate complications. Estimated Blood Loss: Estimated blood loss: none. Procedure: Pre-Anesthesia Assessment: - Prior to the procedure, a History and Physical was performed, and patient medications, allergies and sensitivities were reviewed. The patient's tolerance of previous anesthesia was reviewed. - The risks and benefits of the procedure and the sedation options and risks were discussed with the patient. All questions were answered and informed consent was obtained. - Immediately prior to administration of medications, the patient was re-assessed for adequacy to receive sedatives. The benefits, risks, and alternatives to the procedure and sedation were discussed and informed consent was obtained. The [id number] Duodenoscope was introduced through the mouth, and used to inject contrast into and used to inject contrast into the bile duct. The ERCP was accomplished without difficulty. The patient tolerated the procedure well. Findings: A scout leaser film of the abdomen was obtained. Surgical clips, consistent with a previous cholecystectomy, were seen in the area of the right upper quadrant of the abdomen. The esophagus was successfully intubated under direct vision without detailed examination of the pharynx, larynx, and associated structures, and upper GI tract. The upper GI tract was grossly normal. The major papilla was adjacent to two diverticula. A 0.025 inch x 450 cm angled Visiglide wire was passed into the biliary tree. The short-nosed traction sphincterotome was passed over the guidewire and the bile duct was then deeply cannulated. Contrast was injected. I personally interpreted the bile duct images. There was brisk flow of contrast through the ducts. Image quality was excellent. Contrast extended to the hepatic ducts. Opacification of the main bile duct was successful. The middle third of the main bile duct contained one stone. The main bile duct was diffusely dilated, acquired. The largest diameter was 12 mm. A 6 mm biliary sphincterotomy was made with a traction (standard) sphincterotome using ERBE electrocautery. There was self limited oozing from the sphincterotomy which did not require treatment. The biliary tree was swept with an 11.5 mm balloon starting at the bifurcation. Sludge and possibel stone debris was swept from the duct. One 10 mm by 4 cm covered metal stent was placed into the common bile duct gvien some oozing at sphincterotomy and need for anticoaulation. Bile flowed through the stent. The stent was in good position. The endoscope was withdrawn from the patient. Impression: - The major papilla was adjacent to a diverticulum. - Cholangiogram with dilated bile duct and filling defect suspicious for choledocholithiasis - A biliary sphincterotomy was performed. The biliary tree was swept and sludge was found. - Balloon-occlusion cholangiogram after several sweeps of biliary tree no longer revealed a filling defect. - One covered metal stent was placed into the common bile duct due to mild oozing at sphincterotomy stent and to allow spontaneous passage of any stone fragments or microlithiasis. Recommendation: - [facility]. - Observe patient's clinical course following today's ERCP with therapeutic intervention. - Watch for pancreatitis, bleeding, perforation, and cholangitis. - NPO for four hours. Clear liquid diet today. Advance diet as tolerated tomorrow. - Avoid aspirin and nonsteroidal anti-inflammatory medicines for 10 days. ASA for secondary cardiac prophylaxis OK to continue. - Restart Eliquis (apixaban) in two days. - Additional recommendations per inpatient consult team. -- Repeat ERCP in 6-8 weeks for stents removal. - In the unusual situation that you develop abdominal, bleeding or other significant problems in the days following this procedure please call [phone]. After hours and evenings please call [phone] and speak to the GI fellow women's health care nurse practitioner. Please tell the fellow that Dr. Fentondid your procedure and that you were instructed [...] if you go to the emergency room. Attending Participation: I was present and participated during the entire procedure, including non-martinez portions. Electronically signed by Heydi Fenton MD Heydi Fenton M.D. 11/26/2023 5:22:09 PM . Number of Addenda: 0 Note Initiated On: 11/26/2023 4:01 PM documented in this encounter Consult Notes * Carmencita Small MD - 11/25/2023 3:51 PM CDTAssociated Order(s): Consult to General Surgery Images from the original note were not included. [facility] Team A Trauma Surgery History and Physical Date of Evaluation: 11/25/23 Sex: female Date of : 1945 Consulting provider: Consult to General Surgery Consult performed by: Carmencita Small MD Consult ordered by: Elio Lewis MD Trauma Level Consult Assessment/Plan: Tiera Lobato is a 78 y.o. 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 Additionally found to have R leg swelling that developed after fall 11/15, with initial concern by PCP to be cellulitis with abx prescribed but not taken due to abdominal pain. US in ED showing likely hematoma. Motor fx, sensory fx and pulses intact. Patient states numbing medicationwas injected yesterday but no procedures were performed. WBC 3.8, hgb 8.4 (baseline anemic with hgb8- 8.5). RLE XR without acute fx. #R leg hematoma - santosh bandage applied to provide moderate compression, can loosen if uncomfortable to patient - monitor for skin changes, drainage - monitor for loss of sensory, motor fx, worsening pain in RLE - no acute indication for evacuation or decompression as infection risk outweighs benefits #choledocholithiasis - GI consult, plan for ERCP 11/25 Condition of Patient: Stable Disposition of Patient: will follow on [facility] Consult service FOLLOWUP REQUIRED: Patient should call [phone] - option 1 after discharge during normal business hours (M-) to schedule a follow-up appointment in 1 week at the [facility] in the 3rd floor of the [facility] Carmencitajackie Madrigal [facility] Trauma Surgery November 25, 2023 3:51 PM [facility] ED Consult [facility] Outpatient Clinic - option 1 Discussed with attending: Karen Hawk MD at 1500 (time). Physician requesting consult: Nallely Johns MD with the emergency department has asked that we see Tiera Lobato for evaluation following traumatic injury. Method of transport: Ambulance Transported: from assisted living Chief Complaint: nausea, vomiting, RLE swelling History of Injury/Accident, Subjective: Pre Hospital (events preceding injury, mechanism, treatments, clinical course): Patient coming to the ED via EMS from [facility] in [facility]. Patient has had diarrhea and vomiting for the past 5 days. HPI: Tiera Lobato is a 78 y.o. 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 Additionally found to have R leg swelling that developed after fall 11/15, with initial concern by PCP to be cellulitis with abx prescribed but not taken due to abdominal pain. US in ED showing likely hematoma. Motor fx, sensory fx and pulses intact. Patient states she fell and struck RLE, denies head trauma, LOC or other pain. Had resulting red and warm area of right lateral leg, seen by PCP and started on abx for cellulitis. Pain and edema worsened, area got more swollen but was not her main concern as nausea and vomiting began and persisted over the last 5 days. She was unable to take the abx prescribed to her. She then presented yesterdayand was seen by GI for choledocholithiasis with non obstructing stone in CBD. Surgery consulted for RLE hematoma, seen on US to be [id number] large. Pt reports it has decreased in size slightly since she last looked at it. Reports no changes to RLE motor or sensory fx. Was walking on it prior to admission. Patient states numbing medication was injected yesterday but no procedures were performed. Last eliquis was 6/ PM. Denies any other LE trauma, surgical hx. Denies fevers, chills headache, vision changes, neck pain, chest pain, shortness of breath, BLE lower extremity numbness tingling or swelling. Allergies: Allergies Allergen Reactions Codeine Hives and Shortness of breath Latex Itching Milk Nausea & Vomiting Tramadol Nausea & Vomiting and Unknown Medications: No current facility-administered medications on file prior to encounter. Current Outpatient Medications on File Prior to Encounter Medication Sig Dispense Refill sulfamethoxazole-trimethoprim (BACTRIM) 400-80 mg per tablet Take 1 tablet (80 mg of trimethoprim total) by mouth 2 (two) times a day acetaminophen 500 mg capsule Take 2 capsules (1,000 mg total) by mouth 3 (three) times a day 30 tablet 0 alendronate (FOSAMAX) 70 mg tablet TAKE 1 TABLET BY MOUTH ONE TIME PER WEEK 0 amiodarone (PACERONE) 200 mg tablet Take 1 tablet (200 mg total) by mouth daily 30 tablet 11 apixaban (Eliquis) 5 mg tablet Take 1 tablet (5 mg total) by mouth 2 (two) times a day 60 tablet 0 atorvastatin (LIPITOR) 80 mg tablet Take 1 tablet (80 mg total) by mouth nightly 30 tablet 11 calcium carbonate-vitamin D3 1,250mg (500mg elemental) - 5 mcg (200 units) per tablet Take 1 tabletby mouth daily 30 tablet 11 cannabidiol, CBD, (medical cannabis) each 1 Dose 3 (three) times a day as needed Tablets (Patient not taking: Reported on 10/18/2022) cholecalciferol (VITAMIN D-3) 1,000 unit tablet Take 1 tablet (1,000 Units total) by mouth daily cyanocobalamin (Vitamin B-12) 1,000 mcg tablet Take 2 tablets (2,000 mcg total) by mouth daily (Patient not taking: Reported on 08/20/2023) diclofenac DR (VOLTAREN) 75 mg EC tablet Take 1 tablet (75 mg total) by mouth 2 (two) times a day diclofenac sodium (VOLTAREN) 1 % gel Apply 2 g topically 3 (three) times a day (Patient not taking:Reported on 08/20/2023) 20 g 0 ezetimibe (ZETIA) 10 mg tablet TAKE 1 TABLET BY MOUTH EVERY DAY 90 tablet 3 gabapentin (NEURONTIN) 100 mg capsule Take 2 capsules (200 mg total) by mouth 2 (two) times a day 120 capsule 11 linaCLOtide (Linzess) 145 mcg capsule Take 1 capsule (145 mcg total) by mouth daily before breakfast 30 capsule 0 metoprolol tartrate (LOPRESSOR) 25 mg immediate release tablet Take 1 tablet (25 mg total) by mouthdaily as needed (to be given if pt has palpitations and is sympotmatic) 0 metoprolol XL (TOPROL-XL) 25 mg extended release tablet Take 1 tablet (25 mg total) by mouth daily 30 tablet 11 midodrine (PROAMATINE) 5 mg tablet Take 1 tablet (5 mg total) by mouth 3 (three) times a day 90 tablet 11 ondansetron (ZOFRAN) 4 mg tablet Take 1 tablet (4 mg total) by mouth every 8 (eight) hours as needed for nausea or vomiting pantoprazole DR (PROTONIX) 40 mg EC tablet Take 1 tablet (40 mg total) by mouth daily 30 tablet 11 sertraline (ZOLOFT) 100 mg tablet Take 0.5 tablets (50 mg total) by mouth daily Immunizations: Immunization History Administered Date(s) Administered Moderna SARS-CoV-2 Monovalent Vaccination (12+ YRS) 08/09/2020, 09/06/2020 Past Medical History: Past Medical History: Diagnosis Date Acid reflux Heart murmur High cholesterol History of blood clots 1960s in leg as teenager - had phlebitis History of PA (myocardial infarction) 2012 History of vertebral fracture 2018 HTN (hypertension) IBS (irritable bowel syndrome) Vertigo Hospitalized: none Surgical History: Past Surgical History: Procedure Laterality Date CARDIOVERSION 03/2023 COLON SURGERY 1992 Repair burst colon CORONARY ARTERY BYPASS GRAFT 2012 Double by-pass - [facility] FLUORO GUIDED INJECTION HIP RIGHT Right 05/16/2022 FLUORO GUIDED INJECTION HIP RIGHT Right 08/15/2022 FLUORO GUIDED INJECTION HIP RIGHT Right 12/10/2022 FLUORO GUIDED INJECTION HIP RIGHT Right 05/13/[address] James ([place], [place]) TOTAL KNEE ARTHROPLASTY Right 2018 Family History: Family History Problem Relation Age of Onset Prostate cancer Father Stroke Child Hypertension Child Social: Social History Tobacco Use Smoking status: Never Passive exposure: Current Smokeless tobacco: Never Substance and Sexual Activity Drug use: Yes Types: Medical marijuana Comment: Tablets - tid Sexual activity: None Alcohol Use: Not At Risk (09/28/2020) AUDIT-C Frequency of Alcohol Consumption: Never Average Number of Drinks: Not on file Frequency of Binge Drinking: Not on file Last Meal: 611 AM SURVEY Primary Assessment Eye Opening: Spontaneous Best Verbal Response: Oriented Best Motor Response: Obeys commands Annia Coma Scale Score: 15 Resuscitation Phase & Emergency Treatments Pt received Pain Medication Trauma Team: Attending: Karen Hawk MD Senior: -- Davis: Carmencita Small Consultants: (name of attending) IP CONSULT TO GASTROENTEROLOGY IP CONSULT TO GENERAL SURGERY REVIEW OF SYSTEMS General- no fevers, chills HEENT- no changes in vision, hearing, congestion CV- no chest pain or palpitations Resp- no shortness of breath, no cough GI- no abdominal pain, nausea, vomiting, diarrhea, constipation - no pain with urination, urinary frequency or urgency MSK- no changes in strength, extremity swelling Integument- no new rashes, lumps, or bumps beyond listed in HPI Heme- no easy bruising Endo- no significant changes in weight, no heat or cold intolerance Neuro- No changes in memory or balance Psych- No changes in mood PHYSICAL EXAM: Vitals Temp: 36.6 ??C (97.8 ??F) Pulse: 58 Resp: 16 BP: 137/59 SpO2: 98 % GENERAL: Awake, alert, oriented x 4; no acute distress. HEENT: Eyes: Pupils equal, round. NECK: Supple and symmetric. RESPIRATORY: Good respiratory effort. Chest: Symmetrical rise and fall. Symmetrical expansion with respirations. CARDIOVASCULAR: Regular rate and rhythm. GASTROINTESTINAL: Abdomen non-TTP, Abdomen is nondistended. MUSCULOSKELETAL: RLE lateral lower leg purple/red swelling with tenderness to palpation, small areas of skin breakdown, no active drainage or bleeding with palpation. LLE without tenderness or effusion. Range of motion adequate. Strength and tone equal bilaterally, stable. Sensation intact bilaterally. NEUROLOGICAL: Cranial nerves II-XII grossly intact. Sensation intact. PULSES: DP pulses palpable bilaterally 11/24: Data Review: Lab Results Component Value Date WBC 3.8 11/25/2023 HGB 8.4 (L) 11/25/2023 HCT 26.2 (L) 11/25/2023 MCV 87.3 11/25/2023 LABPLAT 198 11/25/2023 Lab Results Component Value Date GLUCOSE 84 11/25/2023 CALCIUM 9.8 11/25/2023 SODIUM 135 11/25/2023 POTASSIUM 4.0 11/25/2023 CO2 20 (L) 11/25/2023 CHLORIDE 102 11/25/2023 BUNSER 11 11/25/2023 CREATININE 1.18 (H) 11/25/2023 Recent Results (from the past 36 hour(s)) CBC with auto differential Collection Time: 11/24/23 9:49 AM Result Value Ref Range WBC 3.2 (L) 3.8 - 9.9 K/cumm Hgb 8.8 (L) 11.9 - 15.5 g/dL Hct 27.6 (L) 35.6 - 45.5 % Plt 191 150 - 400 K/cumm MPV 11.5 9.1 - 12.3 fL RBC 3.14 (L) 3.90 - 5.20 M/cumm MCV 87.9 81.3 - 96.4 fL MCH 28.0 27.1 - 33.3 pg MCHC 31.9 (L) 32.3 - 35.7 g/dL RDW CV 20.8 (H) 11.1 - 14.9 % RDW SD 65.2 (H) 35.7 - 48.1 fL NRBC abs 0.00 0.00 - 0.01 K/cumm Comprehensive metabolic panel Collection Time: 11/24/23 9:49 AM Result Value Ref Range Sodium 135 135 - 145 mmol/L Potassium, pl 4.0 3.3 - 4.9 mmol/L Chloride 103 97 - 110 mmol/L CO2 23 22 - 32 mmol/L Anion gap 9 2 - 15 mmol/L BUN 12 6 - 25 mg/dL Creatinine 1.29 (H) 0.60 - 1.10 mg/dL Glucose 106 70 - 199 mg/dL Calcium 9.7 8.5 - 10.3 mg/dL Bilirubin, total 0.9 0.1 - 1.2 mg/dL Protein, pl 6.9 6.5 - 8.5 g/dL Albumin 4.0 3.5 - 5.0 g/dL Alk phos 185 (H) 40 - 130 Units/L ALT 1,087 (H) 7 - 45 Units/L AST 673 (H) 10 - 45 Units/L Lipase Collection Time: 11/24/23 9:49 AM Result Value Ref Range Lipase 31 10 - 99 Units/L Troponin I high-sensitivity series (baseline, 2hr, 4hr, 6hr) Collection Time: 11/24/23 9:49 AM Result Value Ref Range Trop I hs 15 <=17 ng/L Differential, auto Collection Time: 11/24/23 9:49 AM Result Value Ref Range Neutrophil abs 1.9 1.5 - 6.5 K/cumm Imm gran abs 0.0 0.0 - 0.1 K/cumm Lymphocyte abs 0.5 (L) 0.8 - 3.3 K/cumm Monocyte abs 0.5 0.2 - 0.8 K/cumm Eosinophil abs 0.3 0.0 - 0.5 K/cumm Basophil abs 0.0 0.0 - 0.1 K/cumm Neutrophil pct 58.6 % Imm gran pct 0.3 % Lymphocyte pct 16.4 % Monocyte pct 16.7 % Eosinophil pct 7.7 % Basophil pct 0.3 % eGFR Collection Time: 11/24/23 9:49 AM Result Value Ref Range eGFR 43 (L) >=60 mL/min/1.73 m2 Troponin I high-sensitivity 2-hour Collection Time: 11/24/23 12:01 PM Result Value Ref Range Trop I hs 16 <=17 ng/L Trop I hs delta 1 ng/L Trop I hs interp Insignificant Hepatitis panel, acute Blood Collection Time: 11/24/23 12:01 PM Specimen: Blood Result Value Ref Range Hep A IgM Nonreactive Nonreactive Hep B core IgM Nonreactive Nonreactive Hep C Ab Nonreactive Nonreactive HepBsAg Nonreactive Nonreactive Urinalysis reflex to microscopic and culture Urine Collection Time: 11/24/23 3:33 PM Specimen: Urine Result Value Ref Range Color, ur Straw Yellow Clarity, ur Clear Clear Specific gravity, ur 1.015 1.003 - 1.030 pH, urine 6.5 Protein, ur ql Negative Negative Glucose, ur ql Negative Negative Ketones, ur Negative Negative Bilirubin, ur Negative Negative Blood, ur Negative Negative Urobilinogen, ur <2.0 <2.0 mg/dL Nitrite, ur Negative Negative Leukocyte esterase, ur 2+ (A) Negative UA reflex comment Reflex to microscopic UA will be performed. Urinalysis, microscopic only Collection Time: 11/24/23 3:33 PM Result Value Ref Range WBC, ur 0-5 0 - 5 /HPF RBC, ur 0-2 0 - 2 /HPF Epithelial cells, squamous, ur 1-5 0 - 5 /HPF Epithelial cells, transitional, ur 1-5 0 - 0 /HPF Bacteria, ur 1+ (A) Culture Reflex Comment Reflex conditions for urine culture (WBC >10) not met. CBC without differential Collection Time: 11/25/23 6:47 AM Result Value Ref Range WBC 3.8 3.8 - 9.9 K/cumm Hgb 8.4 (L) 11.9 - 15.5 g/dL Hct 26.2 (L) 35.6 - 45.5 % Plt 198 150 - 400 K/cumm MPV 10.9 9.1 - 12.3 fL RBC 3.00 (L) 3.90 - 5.20 M/cumm MCV 87.3 81.3 - 96.4 fL MCH 28.0 27.1 - 33.3 pg MCHC 32.1 (L) 32.3 - 35.7 g/dL RDW CV 21.0 (H) 11.1 - 14.9 % RDW SD 65.5 (H) 35.7 - 48.1 fL NRBC abs 0.00 0.00 - 0.01 K/cumm Comprehensive metabolic panel Collection Time: 11/25/23 6:47 AM Result Value Ref Range Sodium 135 135 - 145 mmol/L Potassium, pl 4.0 3.3 - 4.9 mmol/L Chloride 102 97 - 110 mmol/L CO2 20 (L) 22 - 32 mmol/L Anion gap 13 2 - 15 mmol/L BUN 11 6 - 25 mg/dL Creatinine 1.18 (H) 0.60 - 1.10 mg/dL Glucose 84 70 - 199 mg/dL Calcium 9.8 8.5 - 10.3 mg/dL Bilirubin, total 0.9 0.1 - 1.2 mg/dL Protein, pl 6.6 6.5 - 8.5 g/dL Albumin 3.6 3.5 - 5.0 g/dL Alk phos 166 (H) 40 - 130 Units/L ALT 796 (H) 7 - 45 Units/L AST 364 (H) 10 - 45 Units/L eGFR Collection Time: 11/25/23 6:47 AM Result Value Ref Range eGFR 48 (L) >=60 mL/min/1.73 m2 C. difficile testing Stool Collection Time: 11/25/23 7:18 AM Specimen: Stool Result Value Ref Range GDH Result Negative Negative Toxin Result Negative Negative C. diff result Negative, free toxin Negative, free toxin C. diff interp Negative for toxigenic Clostridioides (Clostridium) difficile. Analysis was performed using a glutamate dehydrogenase antigen detection assay combined with a C. difficile toxin detection assay. Imaging: XR Tibia Fibula Right 2 Views Result Date: 11/25/2023 No priors are available for review. A right total knee arthroplasty is noted. There is soft tissue swelling of the lateral upper/mid calf. No acute fracture. No specific radiographic evidence of osteomyelitis.. Vascular calcifications Electronically signed by: Stefanie Burden M.D. US Lower Extremity Right Limited Result Date: 11/25/2023 Hypoechoic subcutaneous collection without vascularity or hyperemia compatible with an evolving hematoma. Dictated by: Roberto Campbell MD The radiology attending physician has personally reviewed this study, and had reviewed and/or edited this written report and agrees with it. Electronically signed by:Va Hernandez M.D. CT Abdomen Pelvis W Contrast Result Date: 11/24/2023 1. Tiny hyperdensity within the dependent portion of the common bile duct is most consistent with asmall stone. There is mild central intrahepatic and mild to moderate extrahepatic biliary duct dilatation to level the ampulla, similar in severity compared to prior examination. Consider further evaluation with ERCP. 2. New but age indeterminate moderate to severe compression fracture at T12. Unchanged moderate severe height loss at T11. There are also healing right inferior and superior pubic rami fractures which are new from the prior exam. Associated attestation - Judy Hawk MD - 11/25/2023 10:55 PM CDT I have seen and examined the patient on 11/25/23. I agree with the findings and plan of care as discussed with the resident. I spent 15 minutes reviewing the chart, discussing the plan with the patient/family, discussing the plan with the team, and documenting in the medical record. This does not include any time spent on separately billable procedures. Non-obstructive choledocholithiasis in the setting of remote total cholecystectomy. Management per GI team. Right lower extremity hematoma without sign of infection or significant skin necrosis at this time,so would defer intervention. Ensure any coagulopathy correct and apply compression dressing. Karen Hawk MD [facility] Acute [facility] Critical [facility] * Melisa Pritchett MD - 11/24/2023 3:32 PM CDTAssociated Order(s): IP CONSULT TO GASTROENTEROLOGY Biliary Initial Consult Chief complaint: nausea and vomiting Reason for consult: ERCP Requesting provider: Bolivar Llamas MD HPI: This is a 78 y.o. 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 She presented to the ED earlier today with chief complaint of nausea, vomiting, diarrhea, and abdominal pain over the last 5 days. She was recently seen by her PCP after a fall resulting in left lower extremity wound and was prescribed antibiotics. She started the antibiotics, which she thinks was doxycycline, on . She can't recall whether she was already feeling ill at that time or if her symptoms started after starting the medication. She denies any signs or symptoms of GI bleeding. In the ED she was HDS and afebrile. Labs notable for ALT 1087, AST 673, ALP 185, normal Tbili. Notably her LFTs had been mildly elevated in September and August of this year with AST/ALT in 100s (normal ALP and Tbili). CBC with Hb at baseline of 8, WBC mildly low at 3.2. Acute hepatitis panel negative. CTAP w/contrast showed a tiny stone in CBD with similar appearing mild intra and extrahepatic biliary ductal dilation to prior CT in 03/2023 which was read as reservoir effect. On my evaluation of thepatient she is resting in bed comfortably, reports feeling a little better. Her last dose of Eliquis was this morning. She has significant concerns about any procedural intervention and wants to avoid any procedures if possible. Past Medical History: Diagnosis Date Acid reflux Heart murmur High cholesterol History of blood clots 1960s in leg as teenager - had phlebitis History of PA (myocardial infarction) 2012 History of vertebral fracture 2017 HTN (hypertension) IBS (irritable bowel syndrome) Vertigo Past Surgical History: Procedure Laterality Date CARDIOVERSION 03/2023 COLON SURGERY 1992 Repair burst colon CORONARY ARTERY BYPASS GRAFT 2012 Double by-pass - [facility] FLUORO GUIDED INJECTION HIP RIGHT Right 05/16/2022 FLUORO GUIDED INJECTION HIP RIGHT Right 08/15/2022 FLUORO GUIDED INJECTION HIP RIGHT Right 12/10/2022 FLUORO GUIDED INJECTION HIP RIGHT Right 05/13/[address] James ([place], [place]) TOTAL KNEE ARTHROPLASTY Right 2017 (Not in a hospital admission) Allergies Allergen Reactions Codeine Hives and Shortness of breath Latex Itching Milk Nausea & Vomiting Tramadol Nausea & Vomiting and Unknown Social History Tobacco Use Smoking status: Never Passive exposure: Current Smokeless tobacco: Never Substance and Sexual Activity Drug use: Yes Types: Medical marijuana Comment: Tablets - tid Sexual activity: Not on file Alcohol Use: Not At Risk (09/28/2020) AUDIT-C Frequency of Alcohol Consumption: Never Average Number of Drinks: Not on file Frequency of Binge Drinking: Not on file Family History Problem Relation Age of Onset Prostate cancer Father Stroke Child Hypertension Child Review of Systems: Review of systems per HPI and otherwise all other systems are negative Vitals: 24hr Min/Max: Temp Min: 36.6 ??C (97.8 ??F) Max: 36.6 ??C (97.8 ??F) Pulse Min: 65 Max: 65 BP Min: 162/53 Max: 162/53 Resp Min: 14 Max: 14 SpO2 Min: 98 % Max: 98 % Most Recent : Vitals: 11/24/23 0807 BP: 162/53 Pulse: 65 Resp: 14 Temp: 36.6 ??C (97.8 ??F) SpO2: 98% No intake/output data recorded. No intake/output data recorded. Objective Physical Exam: General Appearance: Alert, cooperative, no distress. HEENT: Normocephalic, without obvious abnormality, atraumatic. No scleral icterus or conjunctival pallor. Lungs: Respirations unlabored Cardiovascular: Regular rate and rhythm Abdomen: Soft, non-tender, non-distended Extremities: No cyanosis or edema, no clubbing Skin: No rash Neurologic: Alert and oriented x 4. No focal deficits. Psychiatric: Normal mood and affect Lab/Radiology/Diagnostic Review: Recent Labs Lab Units 11/24/23 0949 WBC K/cumm 3.2* HEMOGLOBIN g/dL 8.8* HEMATOCRIT % 27.6* PLATELETS K/cumm 191 SODIUM mmol/L 135 POTASSIUM PLASMA mmol/L 4.0 CHLORIDE mmol/L 103 CO2 mmol/L 23 ANIONGAP mmol/L 9 GLUCOSE mg/dL 106 BUN SERUM mg/dL 12 CREATININE mg/dL 1.29* CALCIUM mg/dL 9.7 ALBUMIN g/dL 4.0 BILIRUBIN TOTAL mg/dL 0.9 ALK PHOS Units/L 185* ALT Units/L 1,087* AST Units/L 673* CTAP w/contrast 11/24/23: IMPRESSION: 1. Tiny hyperdensity within the dependent portion of the common bile duct is most consistent with a small stone. There is mild central intrahepatic and mild to moderate extrahepatic biliary duct dilatation to level the ampulla, similar in severity compared to prior examination. Consider further evaluation with ERCP. 2. New but age indeterminate moderate to severe compression fracture at T12. Unchanged moderate severe height loss at T11. There are also healing right inferior and superior pubic rami fractures which are new from the prior exam. Assessment/Plan 78 y.o. 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 1. Acute liver injury. 2. Choledocholithiasis. Unusual presentation with acute onset abdominal pain, nausea, vomiting, and diarrhea 5 days ago around the time she started antibiotics for a leg wound. On presentation here with substantial elevation in LFTs, in hepatocellular pattern with normal Tbili. Of note her LFTs were also elevated/uptrending in August and September of this year, which makes a process such as DILI from antibiotics somewhat less likely. No prior history of choledocholithiasis. Normal bilirubin and lack of biliary ductal enhancement or increase in biliary ductal dilation on CT rule out cholangitis. At this point given evidence of stone in CBD and acute liver injury, ERCP iswarranted but not urgent. Will need 48 hours off anticoagulation as well (last dose 6/10 AM). If her LFTs do not improve after ERCP, hepatology consultation would be warranted. Recs: - IPAP consult - Hold Eliquis - Trend LFTs daily - Will plan for tentative ERCP on Saturday 11/25 We will continue to follow-up with you. Thank you for involving us in the care of this patient. If you have any questions, please call the biliary GI pager during weekdays or the triple GI phone during after hours and weekends. Melisa Pritchett MD Cosigned by Feng De La Garza MD at 11/25/2023 9:02 PM CDT Associated attestation - Feng De La Garza MD - 11/25/2023 9:02 PM CDT I have seen and examined the patient on 11/25/23. I agree with the findings and plan of care as documented in the resident's/fellow's note.. documented in this encounter Nursing Notes * Minerva Lou RN - 12/03/2023 12:36 PM CDT Attempted to call report [facility] unable to reach nurse. left to call back. * Tracy Tavarez - 11/28/2023 11:07 PM CDT Pt transferred from [id number] to [id number] via bed. Pt alert and oriented x 4 and denies pain at this time.Side rails up x 2. Pt tele in place box number [id number]. Call light within reach. * Hanny Bethea RN - 11/25/2023 6:03 PM CDT Patient has santosh wrap on her Right leg when me and the Charge nurse My Shwetha, asked the patient if we could unwrap patient's leg the patient stated that the doctors preferred to leave it wrapped they think it may be a hematoma vs abscess. documented in this encounter ED Notes * Esa Wood RN - 11/25/2023 10:29 AM CDT Bed: ED3-12 Expected date: Expected time: Means of arrival: Comments: Cheryle:Esa Perez RN 11/25/23 1029 * Dot Strauss RN - 11/24/2023 11:51 PM CDT Bed: ED3-12 Expected date: 11/24/23 Expected time: 10:53 PM Means of arrival: Comments: Em Dot Strauss RN 11/24/23 2351 * Kassidy Cunningham MD - 11/24/2023 10:15 AM CDT HPI Chief Complaint Patient presents with ??? Vomiting ??? Diarrhea Tiera Lobato is a 78 y.o. female with a PMH of IBS, Afib s/p cardioversion 02/2023 on Eliquis, CAD, PA in 2012 s/p CABG, HTN HLD, apical variant HCM, CKD III, chronic anemia who presents today for 5 days of vomiting, diarrhea and abdominal pain. She states that she had a recent fall and was seen by her PCP on 11/16 who prescribed oral antibiotics for a wound on her lateral calf as well as probiotics to prevent GI side effects from the antibiotics. She states that since she has not taken the antibiotics because she is unable to keep anything down . She reports that she is vomiting and having large volume diarrhea multiple times a day. She denies any changes in urination. History provided by: Patient leather cutter used: No Patient History: Patient Active Problem List Diagnosis Date Noted ??? Iron deficiency anemia, unspecified 10/05/2023 ??? NSVT (nonsustained ventricular tachycardia) ([facility]) 08/20/2023 ??? A-fib (CMS/HCC) ([facility]) 02/17/2023 ??? Atrial fibrillation (CMS/HCC) ([facility]) 01/13/2023 ??? Apical variant hypertrophic cardiomyopathy ([facility]) 12/05/2022 ??? Paroxysmal atrial fibrillation (CMS/HCC) ([facility]) 12/05/2022 ??? Right hip pain 11/22/2021 ??? Other osteoporosis without current pathological fracture 03/07/2021 ??? Lumbar stenosis with neurogenic claudication 09/29/2020 ??? History of PA (myocardial infarction) 12/10/2017 ??? Primary hypertension 11/06/2012 ??? Coronary artery disease involving [place] coronary artery of [place] heart without angina pectoris 09/23/2012 ??? Hx of CABG 09/23/2012 Past Medical History: Diagnosis Date ??? Acid reflux ??? Heart murmur ??? High cholesterol ??? History of blood clots 1960s in leg as teenager - had phlebitis ??? History of PA (myocardial infarction) 2012 ??? History of vertebral fracture 2017 ??? HTN (hypertension) ??? IBS (irritable bowel syndrome) ??? Vertigo Past Surgical History: Procedure Laterality Date ??? CARDIOVERSION 03/2023 ??? COLON SURGERY 1992 Repair burst colon ??? CORONARY ARTERY BYPASS GRAFT 2012 Double by-pass - [facility] ??? FLUORO GUIDED INJECTION HIP RIGHT Right 05/16/2022 ??? FLUORO GUIDED INJECTION HIP RIGHT Right 08/15/2022 ??? FLUORO GUIDED INJECTION HIP RIGHT Right 12/10/2022 ??? FLUORO GUIDED INJECTION HIP RIGHT Right 05/13/2023 ??? MICRODISCECTOMY 1998 Dr. James ([place], [place]) ??? TOTAL KNEE ARTHROPLASTY Right 2018 Family History Problem Relation Age of Onset ??? Prostate cancer Father ??? Stroke Child ??? Hypertension Child Social History Tobacco Use ??? Smoking status: Never Passive exposure: Current ??? Smokeless tobacco: Never Substance and Sexual Activity ??? Alcohol use: Not on file ??? Drug use: Yes Types: Medical marijuana Comment: Tablets - tid ??? Sexual activity: Not on file Social History Social History Narrative ??? Not on file Review of Systems Review of Systems Constitutional: Negative for chills, fatigue and fever. Cardiovascular: Negative for chest pain, palpitations and leg swelling. Gastrointestinal: Positive for abdominal pain, diarrhea, nausea and vomiting. Negative for abdominal distention. Genitourinary: Negative for difficulty urinating. Skin: Positive for wound. Negative for rash. All other systems reviewed and are negative. Physical Exam ED Triage Vitals [11/24/23 0807] Temp Pulse Resp BP SpO2 36.6 ??C (97.8 ??F) 65 14 162/53 98 % Temp src Heart Rate Source Patient Position BP Location FiO2 (%) Oral -- -- -- -- Height Height Method Weight Weight Method -- -- -- -- Physical Exam Constitutional: Appearance: Normal appearance. She is normal weight. HENT: Head: Normocephalic. Nose: Nose normal. Eyes: Extraocular Movements: Extraocular movements intact. Cardiovascular: Rate and Rhythm: Normal rate and regular rhythm. Pulses: Normal pulses. Pulmonary: Effort: Pulmonary effort is normal. Breath sounds: Normal breath sounds. Abdominal: General: Abdomen is flat. Palpations: Abdomen is soft. Tenderness: There is abdominal tenderness. Skin: Findings: Lesion present. Comments: Well-demarcated, erythematous rash of the RLE with 2 central black scabs Neurological: Mental Status: She is alert. [facility] Medical Decision Making 78 yo female here for nausea, vomiting, diarrhea and abdominal pain iso recent antibiotic treatment. Patient presentation concerning for CDI. Patient could also have either primary cystitis or cystitis 2/2 CDI. Patient denied any urinary symptoms, but plan is to obtain stool culture and CDI testing, as will as UA with reflux to microscopic and culture. Attending Summary of Care ED Course as of 11/25/23 1110 Time: 11/23 1029 Comment: I have seen and examined the patient on 11/24/23. I agree with the findings and plan of care as documented in the resident's note. By: Elisha Jose MD Time: 11/23 1137 Comment: Bedside ultrasound shows concern for infected hematoma versus abscess, approx 2cm in depthand 4cm in diameter, with cobblestoning surrounding. By: Elisha Jose MD Time: 11/23 3771 Comment: Hx IBS, a-fib Eliquis P/w N/V/D in setting of Abx for leg wound Admit Med elevated LFTs Will d/w GI re: ERCP By: Bolivar Llamas MD Time: 11/23 3855 Comment: GI consulted re: stone, will evaluate patient By: Bolivar Llamas MD Time: 11/23 9723 Comment: Attending signout: 78 yoF with hx of IBS, afib on eliquis, CKD, leg wound on abx here withN/V/D. LFTs elevated and found to have CBD stone. No fever, chills. GI to see in AM. By: Baylee Pepper MD Time: 11/24 1109 Value: C. diff result: Negative, free toxin Comment: (Reviewed) By: Nallely Johns MD No diagnosis found. Kassidy Cunningham MD Resident 11/24/231111 Kassidy Cunningham MD Resident 11/24/231111 Cosigned by Elisha Jose MD at 11/28/2023 9:41 PM CDT Associated attestation - Elisha Jose MD - 11/28/2023 9:41 PM CDT I have seen and examined the patient on 11/24/2023. I agree with the findings and plan of care as documented in the resident's note. * Esa Wood RN - 11/24/2023 9:25 AM CDT Bed: ED2-29 Expected date: Expected time: Means of arrival: Ambulance Comments: Esa Wood RN 11/24/23924 * Bolivar Grant RN - 11/24/2023 8:05 AM CDT Patient coming to the ED via EMS from [facility] in [facility]. Patient has had diarrhea and vomiting for the past 5 days. documented in this encounter Miscellaneous Notes * Plan of Care - Suraj Mendes RN - 12/03/2023 12:22 PM CDT 12/03/23 1222 Discharge Summary Discharge Disposition Assisted living [facility] Facility Contact Number [phone] Equipment/Provider Needs No Home Needs Identified Anticipated discharge level of care Assisted living Actual Discharge Level of Care Assisted living Does Actual Level of Care Match Care Team Recommendation? Yes Post Acute Care Plan Home Care Services N/A Post Acute Care Facility N/A Discharge Additional Assistance Does the patient need discharge transport arranged? No Post Discharge Care Provider Post Discharge Care Plan DC Summary has been faxed to next level of care provider (see Follow Up Providers) Per medical team, patient is medically stable for discharge at this time. Follow up appointment hasbeen scheduled for 12/10. Patient and/or family are agreeable with the plan. If any further discharge needs arise, please contact the covering director case. Suraj Mendes RN Case Manager * Plan of Care - Suraj Mendes RN - 12/03/2023 12:21 PM CDT 12/03/23 1221 Communications Important Message from Medicare notice given to patient? Yes * Plan of Care - Thuy Moore RN - 12/03/2023 1:49 AM CDT Problem: Fall Risk Goal: Ability to state ways to decrease the risk of falls will improve Outcome: Progressing Flowsheets (Taken 12/03/2023 0100) Ability to state ways to decrease the risk of falls will improve: Teach fall prevention measures Goal: Will remain free from falls Outcome: Progressing Flowsheets (Taken 12/03/2023 0100) Will remain free from falls: Assess risk factors for falls Goal: Will remain free from injury from falls Outcome: Progressing Flowsheets (Taken 12/03/202399) Will remain free from injury from falls: Provide safe environment for conduction of activities of daily living in hospital environment Problem: Discharge Planning Goal: Understanding discharge needs will improve Outcome: Progressing Flowsheets (Taken 12/03/202399) Understanding of discharge needs will improve: Identify discharge learning needs (meds, wound care,etc.) Problem: Skin/Tissue Integrity Goal: Skin integrity remains intact Outcome: Progressing Flowsheets (Taken 12/03/202399) Skin integrity remains intact: Assess and document risk factors for pressure injury development Goal: Incisions, wounds, or drain sites healing without S/S of infection Outcome: Progressing Flowsheets (Taken 12/03/202399) Incision(s), Wound(s) or Drain Site(s) healing without S/S of infection: Assess and document risk factors for pressure injury development Goal: Oral mucous membranes remain intact Description: Outcome: Progressing Flowsheets (Taken 12/03/202399) Oral mucous membranes remain intact: Assess oral mucosa and hygiene practices Problem: Musculoskeletal Goal: Return mobility to safest level of function Outcome: Progressing Flowsheets (Taken 12/03/202399) Return mobility to safest level of function: Assess patient stability and activity tolerance for standing, transferring and ambulating with or without assistive devices Goal: Maintain proper alignment of affected body part Outcome: Progressing Flowsheets (Taken 12/03/202399) Maintain proper alignment of affected body part: Support and protect limb and body alignment per provider's orders Goal: Return ADL status to a safe level of function Outcome: Progressing Flowsheets (Taken 12/03/202399) Return activities of daily living status to a safe level of function: Assess patient's activities of daily living deficits and provide assistive devices as needed Goal: Ability to perform activities at highest level will improve Outcome: Progressing Flowsheets (Taken 12/03/202399) Ability to perform activities at highest level will improve: Collaborate with rehabilitation services Goal: Mobility, ROM and muscle strength will improve Outcome: Progressing Flowsheets (Taken 12/03/202399) Mobility, ROM and muscle strength will improve: Provide proper bed mobility techniques Problem: Infection Goal: Absence of infection during hospitalization Outcome: Progressing Flowsheets (Taken 12/03/202399) Absence of infection during hospitalization: Assess and monitor for signs and symptoms of infection Goal: Absence of fever/infection during anticipated neutropenic period Outcome: Progressing Flowsheets (Taken 12/03/202399) Absence of fever/infection during anticipated neutropenic period: Monitor ANC results Problem: Cardiovascular Goal: Maintains optimal cardiac output and hemodynamic stability Outcome: Progressing Flowsheets (Taken 12/03/202399) Maintain optimal cardiac output and hemodynamic Stability: Monitor vital signs, rhythm, and trends Goal: Absence of cardiac dysrhythmias or at baseline Outcome: Progressing Flowsheets (Taken 12/03/202399) Absence of cardiac dysrhythmias or at baseline: Monitor electrolytes and administer replacement therapy as ordered Goal: Cardiovascular status will improve Outcome: Progressing Flowsheets (Taken 12/03/202399) Cardiovascular status will improve: Monitor for signs and symptoms of chest pain Problem: Lack of Knowledge Goal: Ability to develop a pain control plan will improve Outcome: Progressing Flowsheets (Taken 12/03/202399) Ability to develop a pain control plan will improve: Explain causes of pain and how long pain can be expected to last Problem: Medication Goal: Satisfaction with pain management medication regimen will improve Outcome: Progressing Flowsheets (Taken 12/03/202399) Satisfaction with pain management medication regimen will improve: Assess satisfaction with pain management regimen Problem: Sensory Goal: Ability to identify factors that increase pain levels will improve while working to decrease the patient's pain levels Outcome: Progressing Flowsheets (Taken 12/03/202399) Ability to identify factors that increase pain levels will improve while working to decrease patients pain levels: Assess pain status Problem: Coping Goal: Ability to cope will improve Outcome: Progressing Flowsheets (Taken 12/03/202399) Ability to cope will Improve: Encourage vebalization of feelings surrounding pain Problem: Health Behavior Goal: Identification of resources available to assist in meeting health care needs will improve Outcome: Progressing Flowsheets (Taken 12/03/202399) Identification of resources available to assist in meeting health care needs will improve: Collaborate with pain management Problem: Gastrointestinal Goal: Minimal or absence of nausea and vomiting Outcome: Progressing Flowsheets (Taken 12/03/202399) Minimal or absence of nausea and vomiting: Assess gastrointestinal status Goal: Maintains or returns to baseline bowel function Outcome: Progressing Flowsheets (Taken 12/03/2023 0100) Maintains or returns to baseline bowel function: Assess bowel function, evaluate bowel sounds and signs of abdominal distention Goal: Maintains adequate nutritional intake Outcome: Progressing Flowsheets (Taken 12/03/202399) Maintains adequate nutritional intake: Monitor percentage of each meal consumed Goal: Will show no signs and symptoms of gastrointestinal bleeding Outcome: Progressing Flowsheets (Taken 12/03/2023 010) Will show no signs and symptoms of gastrointestinal bleeding: Assess amount, characteristics and/orfrequency of stool Problem: Neurosensory Goal: Achieves stable or improved neurological status Outcome: Progressing Goal: Achieves maximal functionality and self care Outcome: Progressing Flowsheets (Taken 12/03/2023 010) Achieves maximal functionality and self care: Monitor swallowing and airway patency with patient fatigue and changes in neurological status Goals: Clinical Goals for the Shift: monitor labs/vitals, pain mgmt, promote rest [employer] Patient Centered Goal for Treatment: safe discharge * Plan of Care - Suraj Mendes RN - 12/02/2023 3:14 PM CDT 12/02/23 1514 Discharge Planning Support System Family members Anticipated discharge level of care Assisted living Facility Information and Contact [facility] Progression of Care Update Per Medical Chart/Rounds/IDR: IDR ADD: 12/02 Education Needs Identified (plan): CM sent referrals in [facility] for longterm (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 Anticipate discharge back to [facility] tomorrow F/U Appointments: PCP appt 12/10 Patient's Identified Problem/Goal Problem:?Ensure acute medical needs are met and that patient has a safe discharge plan. Goal:?Secure a discharge plan that patient/family are agreeable with?and ensure patient has continuum of care. Patient and/or family are agreeable with plan. guest service manager will continue to follow and assist with discharge planning as needed. If any further discharge needs arise, please contact the covering director case. * Plan of Care - Baylee Andrea RN - 12/02/2023 10:24 AM CDT Goals: Clinical Goals for the Shift: monitor labs/vitals, pain mgmt, promote rest Problem: Fall Risk Goal: Ability to state ways to decrease the risk of falls will improve Outcome: Progressing Goal: Will remain free from falls Outcome: Progressing Goal: Will remain free from injury from falls Outcome: Progressing Problem: Discharge Planning Goal: Understanding discharge needs will improve Outcome: Progressing Problem: Skin/Tissue Integrity Goal: Skin integrity remains intact Outcome: Progressing Goal: Incisions, wounds, or drain sites healing without S/S of infection Outcome: Progressing Goal: Oral mucous membranes remain intact Description: Outcome: Progressing Problem: Musculoskeletal Goal: Return mobility to safest level of function Outcome: Progressing Goal: Maintain proper alignment of affected body part Outcome: Progressing Goal: Return ADL status to a safe level of function Outcome: Progressing Goal: Ability to perform activities at highest level will improve Outcome: Progressing Goal: Mobility, ROM and muscle strength will improve Outcome: Progressing Problem: Infection Goal: Absence of infection during hospitalization Outcome: Progressing Goal: Absence of fever/infection during anticipated neutropenic period Outcome: Progressing Problem: Cardiovascular Goal: Maintains optimal cardiac output and hemodynamic stability Outcome: Progressing Goal: Absence of cardiac dysrhythmias or at baseline Outcome: Progressing Goal: Cardiovascular status will improve Outcome: Progressing Problem: Lack of Knowledge Goal: Ability to develop a pain control plan will improve Outcome: Progressing Problem: Medication Goal: Satisfaction with pain management medication regimen will improve Outcome: Progressing Problem: Sensory Goal: Ability to identify factors that increase pain levels will improve while working to decrease the patient's pain levels Outcome: Progressing Problem: Coping Goal: Ability to cope will improve Outcome: Progressing Problem: Health Behavior Goal: Identification of resources available to assist in meeting health care needs will improve Outcome: Progressing Problem: Gastrointestinal Goal: Minimal or absence of nausea and vomiting Outcome: Progressing Goal: Maintains or returns to baseline bowel function Outcome: Progressing Goal: Maintains adequate nutritional intake Outcome: Progressing Goal: Will show no signs and symptoms of gastrointestinal bleeding Outcome: Progressing Problem: Neurosensory Goal: Achieves stable or improved neurological status Outcome: Progressing Goal: Achieves maximal functionality and self care Outcome: Progressing * Consults, Subsequent - Melisa Pritchett MD - 12/02/2023 9:44 AM CDT Biliary Subsequent Consult Subjective Chief complaint of abdominal pain. Interval History: - She feels okay this morning, working with PT on my evaluation - She had some stomach upset with lunch yesterday but thinks this was due to the food being bad as she started to feel nauseated before the food hit her stomach. This morning she feels well and hadno issues with breakfast Objective Physical Exam: Vitals: 24hr Min/Max: Temp Min: 36.8 ??C (98.3 ??F) Max: 37.1 ??C (98.8 ??F) Pulse Min: 55 Max: 70 BP Min: 128/59 Max: 155/60 Resp Min: 18 Max: 18 SpO2 Min: 97 % Max: 100 % Most Recent : Vitals: 12/02/23 0921 BP: 150/70 Pulse: 70 Resp: Temp: SpO2: 97% General Appearance: Alert, cooperative, no distress. HEENT: Normocephalic, without obvious abnormality, atraumatic. No scleral icterus or conjunctival pallor. Lungs: Respirations unlabored Cardiovascular: Regular rate and rhythm Abdomen: Soft, non-tender, non-distended Extremities: No cyanosis or edema, no clubbing Skin: No rash Neurologic: Alert and oriented x 4. No focal deficits. Psychiatric: Normal mood and affect No intake/output data recorded. I/O this shift: In: 120 [P.O.:120] Out: - Lab/Radiology/Diagnostic Review: Recent Labs Lab Units 12/01/23 2206 11/29/23 2159 11/28/23 1749 11/27/23 0043 11/25/236 11/25/23 1909 WBC K/cumm 4.0 4.2 3.7* < > -- 3.4* HEMOGLOBIN g/dL 8.6* 8.5* 8.0* < > -- 8.5* HEMATOCRIT % 27.9* 26.3* 25.5* < > -- 26.7* PLATELETS K/cumm 216 200 208 < > -- 213 SODIUM mmol/L 139 136 138 < > -- 135 POTASSIUM PLASMA mmol/L 3.7 3.6 3.9 < > -- 3.9 CHLORIDE mmol/L 104 103 104 < > -- 103 CO2 mmol/L 26 24 23 < > -- 23 ANIONGAP mmol/L 9 9 11 < > -- 9 GLUCOSE mg/dL 93 88 87 < > -- 99 BUN SERUM mg/dL 7 9 18 < > -- 13 CREATININE mg/dL 0.97 0.88 1.18* < > -- 1.22* CALCIUM mg/dL 9.2 8.6 8.8 < > -- 9.8 ALBUMIN g/dL 3.2* 3.1* 3.4* < > -- 3.5 BILIRUBIN TOTAL mg/dL 0.6 0.7 0.8 < > -- 0.8 ALK PHOS Units/L 121 123 133* < > -- 152* ALT Units/L 195* 263* 338* < > -- 683* AST Units/L 88* 104* 114* < > -- 257* INR -- -- -- -- 1.04 1.15 < > = values in this interval not displayed. Assessment/Plan Principal Problem: Acute hepatitis Active Problems: Hx of CABG Apical variant hypertrophic cardiomyopathy (HCC) A-fib (CMS/HCC) (HCC) Iron deficiency anemia, unspecified Choledocholithiasis Hematoma of right lower leg Chronic kidney disease (CKD), stage III (moderate) (HCC) Pancreatitis 78 y.o. 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 1. Acute liver injury. 2. Choledocholithiasis. Normal bilirubin and lack of biliary ductal enhancement or increase in biliary ductal dilation on CT rule out cholangitis. At this point given evidence of stone in CBD and acute liver injury, ERCP iswarranted but not urgent. Will need 48 hours off anticoagulation as well (last dose 610 AM). LFTs downtrending. EUS 11/25 with stone visualized in CBD w/ductal dilation, otherwise unremarkable US exam. ERCP 11/25 with filling defect suspicious for choledocholithiasis, swept with sludge, s/p sphincterotomy and CMS placement into CBD given mild oozing at site and for spontaneous passage of stone fragments or microlithiasis. Biliary re-engaged 11/28 for post-ERCP pancreatitis. She developed abdominal pain and lipase 1154. She is tolerating regular diet for the most part, had some dyspepsia yesterday with lunch but thinks it was related to not liking the food. Recs: - Appreciate primary team supportive care for post-ERCP pancreatitis which is improving - Low fat diet - Repeat ERCP in 6-8 weeks for stent removal (we will arrange this) - Ok for discharge from biliary perpsective We will continue to follow-up with you. Thank you for involving us in the care of this patient. If you have any questions, please call the biliary GI pager during weekdays or the [facility] phone during after hours and weekends. Melisa Pritchett MD * Plan of Care - Thuy Moore RN - 12/02/2023 2:11 AM CDT Problem: Fall Risk Goal: Ability to state ways to decrease the risk of falls will improve Outcome: Progressing Flowsheets (Taken 12/02/2023199) Ability to state ways to decrease the risk of falls will improve: Teach fall prevention measures Goal: Will remain free from falls Outcome: Progressing Flowsheets (Taken 12/02/2023199) Will remain free from falls: Assess risk factors for falls Goal: Will remain free from injury from falls Outcome: Progressing Flowsheets (Taken 12/02/2023199) Will remain free from injury from falls: Provide safe environment for conduction of activities of daily living in hospital environment Problem: Discharge Planning Goal: Understanding discharge needs will improve Outcome: Progressing Flowsheets (Taken 12/02/2023199) Understanding of discharge needs will improve: Identify discharge learning needs (meds, wound care,etc.) Problem: Skin/Tissue Integrity Goal: Skin integrity remains intact Outcome: Progressing Flowsheets (Taken 12/02/2023199) Skin integrity remains intact: Assess and document risk factors for pressure injury development Goal: Incisions, wounds, or drain sites healing without S/S of infection Outcome: Progressing Flowsheets (Taken 12/02/2023199) Incision(s), Wound(s) or Drain Site(s) healing without S/S of infection: Assess and document risk factors for pressure injury development Goal: Oral mucous membranes remain intact Description: Outcome: Progressing Flowsheets (Taken 12/02/2023199) Oral mucous membranes remain intact: Assess oral mucosa and hygiene practices Problem: Musculoskeletal Goal: Return mobility to safest level of function Outcome: Progressing Flowsheets (Taken 12/02/2023199) Return mobility to safest level of function: Assess patient stability and activity tolerance for standing, transferring and ambulating with or without assistive devices Goal: Maintain proper alignment of affected body part Outcome: Progressing Flowsheets (Taken 12/02/2023199) Maintain proper alignment of affected body part: Support and protect limb and body alignment per provider's orders Goal: Return ADL status to a safe level of function Outcome: Progressing Flowsheets (Taken 12/02/2023199) Return activities of daily living status to a safe level of function: Assess patient's activities of daily living deficits and provide assistive devices as needed Goal: Ability to perform activities at highest level will improve Outcome: Progressing Flowsheets (Taken 12/02/2023199) Ability to perform activities at highest level will improve: Collaborate with rehabilitation services Goal: Mobility, ROM and muscle strength will improve Outcome: Progressing Flowsheets (Taken 12/02/2023199) Mobility, ROM and muscle strength will improve: Provide proper bed mobility techniques Problem: Infection Goal: Absence of infection during hospitalization Outcome: Progressing Flowsheets (Taken 12/02/2023199) Absence of infection during hospitalization: Assess and monitor for signs and symptoms of infection Goal: Absence of fever/infection during anticipated neutropenic period Outcome: Progressing Flowsheets (Taken 12/02/2023199) Absence of fever/infection during anticipated neutropenic period: Monitor ANC results Problem: Cardiovascular Goal: Maintains optimal cardiac output and hemodynamic stability Outcome: Progressing Flowsheets (Taken 12/02/2023199) Maintain optimal cardiac output and hemodynamic Stability: Monitor vital signs, rhythm, and trends Goal: Absence of cardiac dysrhythmias or at baseline Outcome: Progressing Flowsheets (Taken 12/02/2023199) Absence of cardiac dysrhythmias or at baseline: Monitor electrolytes and administer replacement therapy as ordered Goal: Cardiovascular status will improve Outcome: Progressing Flowsheets (Taken 12/02/2023199) Cardiovascular status will improve: Monitor for signs and symptoms of chest pain Problem: Lack of Knowledge Goal: Ability to develop a pain control plan will improve Outcome: Progressing Flowsheets (Taken 12/02/2023199) Ability to develop a pain control plan will improve: Explain causes of pain and how long pain can be expected to last Problem: Medication Goal: Satisfaction with pain management medication regimen will improve Outcome: Progressing Flowsheets (Taken 12/02/2023199) Satisfaction with pain management medication regimen will improve: Assess satisfaction with pain management regimen Problem: Sensory Goal: Ability to identify factors that increase pain levels will improve while working to decrease the patient's pain levels Outcome: Progressing Flowsheets (Taken 12/02/2023199) Ability to identify factors that increase pain levels will improve while working to decrease patients pain levels: Assess pain status Problem: Coping Goal: Ability to cope will improve Outcome: Progressing Flowsheets (Taken 12/02/2023199) Ability to cope will Improve: Encourage vebalization of feelings surrounding pain Problem: Health Behavior Goal: Identification of resources available to assist in meeting health care needs will improve Outcome: Progressing Flowsheets (Taken 12/02/2023199) Identification of resources available to assist in meeting health care needs will improve: Collaborate with pain management Problem: Gastrointestinal Goal: Minimal or absence of nausea and vomiting Outcome: Progressing Flowsheets (Taken 12/02/2023199) Minimal or absence of nausea and vomiting: Assess gastrointestinal status Goal: Maintains or returns to baseline bowel function Outcome: Progressing Flowsheets (Taken 12/02/2023199) Maintains or returns to baseline bowel function: Assess bowel function, evaluate bowel sounds and signs of abdominal distention Goal: Maintains adequate nutritional intake Outcome: Progressing Flowsheets (Taken 12/02/2023199) Maintains adequate nutritional intake: Monitor percentage of each meal consumed Goal: Will show no signs and symptoms of gastrointestinal bleeding Outcome: Progressing Flowsheets (Taken 12/02/2023199) Will show no signs and symptoms of gastrointestinal bleeding: Assess amount, characteristics and/orfrequency of stool Problem: Neurosensory Goal: Achieves stable or improved neurological status Outcome: Progressing Goal: Achieves maximal functionality and self care Outcome: Progressing Flowsheets (Taken 12/02/2023199) Achieves maximal functionality and self care: Monitor swallowing and airway patency with patient fatigue and changes in neurological status Goals: Clinical Goals for the Shift: monitor labs/vitals, pain mgmt, promote rest * Plan of Care - Yvonne Corrigan RN - 12/01/2023 5:26 PM CDT Clinical Goals for the Shift: VSS; pain management; wound care; promote comfort and rest Summary: pt free of falls and no c/o pain; VSS. Tolerating diet order well with no abdominal discomfort or pain. Pending discharge tomorrow? Problem: Fall Risk Goal: Ability to state ways to decrease the risk of falls will improve Outcome: Progressing Goal: Will remain free from falls Outcome: Progressing Goal: Will remain free from injury from falls Outcome: Progressing Problem: Discharge Planning Goal: Understanding discharge needs will improve Outcome: Progressing Problem: Skin/Tissue Integrity Goal: Skin integrity remains intact Outcome: Progressing Goal: Incisions, wounds, or drain sites healing without S/S of infection Outcome: Progressing Goal: Oral mucous membranes remain intact Description: Outcome: Progressing Problem: Musculoskeletal Goal: Return mobility to safest level of function Outcome: Progressing Goal: Maintain proper alignment of affected body part Outcome: Progressing Goal: Return ADL status to a safe level of function Outcome: Progressing Goal: Ability to perform activities at highest level will improve Outcome: Progressing Goal: Mobility, ROM and muscle strength will improve Outcome: Progressing Problem: Infection Goal: Absence of infection during hospitalization Outcome: Progressing Goal: Absence of fever/infection during anticipated neutropenic period Outcome: Progressing Problem: Cardiovascular Goal: Maintains optimal cardiac output and hemodynamic stability Outcome: Progressing Goal: Absence of cardiac dysrhythmias or at baseline Outcome: Progressing Goal: Cardiovascular status will improve Outcome: Progressing Problem: Lack of Knowledge Goal: Ability to develop a pain control plan will improve Outcome: Progressing Problem: Medication Goal: Satisfaction with pain management medication regimen will improve Outcome: Progressing Problem: Sensory Goal: Ability to identify factors that increase pain levels will improve while working to decrease the patient's pain levels Outcome: Progressing Problem: Coping Goal: Ability to cope will improve Outcome: Progressing Problem: Health Behavior Goal: Identification of resources available to assist in meeting health care needs will improve Outcome: Progressing Problem: Gastrointestinal Goal: Minimal or absence of nausea and vomiting Outcome: Progressing Goal: Maintains or returns to baseline bowel function Outcome: Progressing Goal: Maintains adequate nutritional intake Outcome: Progressing Goal: Will show no signs and symptoms of gastrointestinal bleeding Outcome: Progressing Problem: Neurosensory Goal: Achieves stable or improved neurological status Outcome: Progressing Goal: Achieves maximal functionality and self care Outcome: Progressing * Consults, Subsequent - Melisa Pritchett MD - 12/01/2023 10:50 AM CDT Biliary Subsequent Consult Subjective Chief complaint of abdominal pain. Interval History: - She feels fine this morning, had some worsening pain yesterday after eating a hamburger but feelsthat may have been a bad food choice - No pain this morning, she is tolerating PO so far today Objective Physical Exam: Vitals: 24hr Min/Max: Temp Min: 36.6 ??C (97.9 ??F) Max: 37 ??C (98.6 ??F) Pulse Min: 54 Max: 63 BP Min: 132/51 Max: 163/60 Resp Min: 18 Max: 18 SpO2 Min: 95 % Max: 99 % Most Recent : Vitals: 12/01/23 0847 BP: 138/56 Pulse: 63 Resp: Temp: SpO2: General Appearance: Alert, cooperative, no distress. HEENT: Normocephalic, without obvious abnormality, atraumatic. No scleral icterus or conjunctival pallor. Lungs: Respirations unlabored Cardiovascular: Regular rate and rhythm Abdomen: Soft, non-tender, non-distended Extremities: No cyanosis or edema, no clubbing Skin: No rash Neurologic: Alert and oriented x 4. No focal deficits. Psychiatric: Normal mood and affect I/O last 2 completed shifts: In: 380 [P.O.:380] Out: - No intake/output data recorded. Lab/Radiology/Diagnostic Review: Recent Labs Lab Units 11/29/23 2159 11/28/23 1749 11/27/23 2148 11/27/23 0043 11/25/23 2126 11/25/23 1909 WBC K/cumm 4.2 3.7* 3.8 < > -- 3.4* HEMOGLOBIN g/dL 8.5* 8.0* 8.7* < > -- 8.5* HEMATOCRIT % 26.3* 25.5* 26.9* < > -- 26.7* PLATELETS K/cumm 200 208 211 < > -- 213 SODIUM mmol/L 136 138 137 < > -- 135 POTASSIUM PLASMA mmol/L 3.6 3.9 4.0 < > -- 3.9 CHLORIDE mmol/L 103 104 103 < > -- 103 CO2 mmol/L 24 23 23 < > -- 23 ANIONGAP mmol/L 9 11 11 < > -- 9 GLUCOSE mg/dL 88 87 93 < > -- 99 BUN SERUM mg/dL 9 18 20 < > -- 13 CREATININE mg/dL 0.88 1.18* 1.23* < > -- 1.22* CALCIUM mg/dL 8.6 8.8 9.3 < > -- 9.8 ALBUMIN g/dL 3.1* 3.4* 3.5 < > -- 3.5 BILIRUBIN TOTAL mg/dL 0.7 0.8 0.9 < > -- 0.8 ALK PHOS Units/L 123 133* 143* < > -- 152* ALT Units/L 263* 338* 417* < > -- 683* AST Units/L 104* 114* 129* < > -- 257* INR -- -- -- -- 1.04 1.15 < > = values in this interval not displayed. Assessment/Plan Principal Problem: Acute hepatitis Active Problems: Hx of CABG Apical variant hypertrophic cardiomyopathy (HCC) A-fib (CMS/HCC) (HCC) Iron deficiency anemia, unspecified Choledocholithiasis Hematoma of right lower leg Chronic kidney disease (CKD), stage III (moderate) (HCC) Pancreatitis 78 y.o. 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 1. Acute liver injury. 2. Choledocholithiasis. Normal bilirubin and lack of biliary ductal enhancement or increase in biliary ductal dilation on CT rule out cholangitis. At this point given evidence of stone in CBD and acute liver injury, ERCP iswarranted but not urgent. Will need 48 hours off anticoagulation as well (last dose 6/10 AM). LFTs downtrending. EUS 11/25 with stone visualized in CBD w/ductal dilation, otherwise unremarkable US exam. ERCP 11/25 with filling defect suspicious for choledocholithiasis, swept with sludge, s/p sphincterotomy and CMS placement into CBD given mild oozing at site and for spontaneous passage of stone fragments or microlithiasis. Biliary re-engaged 11/28 for post-ERCP pancreatitis. She developed abdominal pain and lipase 1154. Reports her abdominal pain is improving and she is able to tolerate CLD. She did have recurrence of pain after eating a hamburger yesterday, recommended she adhere to low fat diet at this time. Recs: - Appreciate primary team supportive care for post-ERCP pancreatitis which is improving - Low fat diet - Repeat ERCP in 6-8 weeks for stent removal (we will arrange this) We will continue to follow-up with you. Thank you for involving us in the care of this patient. If you have any questions, please call the biliary GI pager during weekdays or the triple [facility] phone during after hours and weekends. Melisa Pritchett MD * Plan of Care - Daysi Tracy - 11/30/2023 9:00 PM CDT Problem: Fall Risk Goal: Ability to state ways to decrease the risk of falls will improve Outcome: Progressing Goal: Will remain free from falls Outcome: Progressing Goal: Will remain free from injury from falls Outcome: Progressing Problem: Discharge Planning Goal: Understanding discharge needs will improve Outcome: Progressing Problem: Skin/Tissue Integrity Goal: Skin integrity remains intact Outcome: Progressing Goal: Incisions, wounds, or drain sites healing without S/S of infection Outcome: Progressing Goal: Oral mucous membranes remain intact Description: Outcome: Progressing Problem: Musculoskeletal Goal: Return mobility to safest level of function Outcome: Progressing Goal: Maintain proper alignment of affected body part Outcome: Progressing Goal: Return ADL status to a safe level of function Outcome: Progressing Goal: Ability to perform activities at highest level will improve Outcome: Progressing Goal: Mobility, ROM and muscle strength will improve Outcome: Progressing Problem: Infection Goal: Absence of infection during hospitalization Outcome: Progressing Goal: Absence of fever/infection during anticipated neutropenic period Outcome: Progressing Problem: Cardiovascular Goal: Maintains optimal cardiac output and hemodynamic stability Outcome: Progressing Goal: Absence of cardiac dysrhythmias or at baseline Outcome: Progressing Goal: Cardiovascular status will improve Outcome: Progressing Problem: Lack of Knowledge Goal: Ability to develop a pain control plan will improve Outcome: Progressing Problem: Medication Goal: Satisfaction with pain management medication regimen will improve Outcome: Progressing Problem: Sensory Goal: Ability to identify factors that increase pain levels will improve while working to decrease the patient's pain levels Outcome: Progressing Problem: Coping Goal: Ability to cope will improve Outcome: Progressing Problem: Health Behavior Goal: Identification of resources available to assist in meeting health care needs will improve Outcome: Progressing Problem: Gastrointestinal Goal: Minimal or absence of nausea and vomiting Outcome: Progressing Goal: Maintains or returns to baseline bowel function Outcome: Progressing Goal: Maintains adequate nutritional intake Outcome: Progressing Goal: Will show no signs and symptoms of gastrointestinal bleeding Outcome: Progressing Problem: Neurosensory Goal: Achieves stable or improved neurological status Outcome: Progressing Goal: Achieves maximal functionality and self care Outcome: Progressing Goals: Clinical Goals for the Shift: Pain Control Summary: VSS.Pt possible discharge. No c/o pain. 1 assist to bedside commode maintain safety. * Plan of Care - Randolph Wynn RN - 11/30/2023 10:11 AM CDT Problem: Fall Risk Goal: Ability to state ways to decrease the risk of falls will improve Outcome: Progressing Goal: Will remain free from falls Outcome: Progressing Goal: Will remain free from injury from falls Outcome: Progressing Problem: Discharge Planning Goal: Understanding discharge needs will improve Outcome: Progressing Goals: Clinical Goals for the Shift: Pain Control Summary: * Plan of Care - Tracy Tavarez - 11/29/2023 9:31 PM CDT Problem: Fall Risk Goal: Ability to state ways to decrease the risk of falls will improve Outcome: Progressing Goal: Will remain free from falls Outcome: Progressing Goal: Will remain free from injury from falls Outcome: Progressing Problem: Discharge Planning Goal: Understanding discharge needs will improve Outcome: Progressing Problem: Skin/Tissue Integrity Goal: Skin integrity remains intact Outcome: Progressing Goal: Incisions, wounds, or drain sites healing without S/S of infection Outcome: Progressing Goal: Oral mucous membranes remain intact Description: Outcome: Progressing Problem: Musculoskeletal Goal: Return mobility to safest level of function Outcome: Progressing Goal: Maintain proper alignment of affected body part Outcome: Progressing Goal: Return ADL status to a safe level of function Outcome: Progressing Goal: Ability to perform activities at highest level will improve Outcome: Progressing Goal: Mobility, ROM and muscle strength will improve Outcome: Progressing Problem: Infection Goal: Absence of infection during hospitalization Outcome: Progressing Goal: Absence of fever/infection during anticipated neutropenic period Outcome: Progressing Problem: Cardiovascular Goal: Maintains optimal cardiac output and hemodynamic stability Outcome: Progressing Goal: Absence of cardiac dysrhythmias or at baseline Outcome: Progressing Goal: Cardiovascular status will improve Outcome: Progressing Problem: Lack of Knowledge Goal: Ability to develop a pain control plan will improve Outcome: Progressing Problem: Medication Goal: Satisfaction with pain management medication regimen will improve Outcome: Progressing Problem: Sensory Goal: Ability to identify factors that increase pain levels will improve while working to decrease the patient's pain levels Outcome: Progressing Problem: Coping Goal: Ability to cope will improve Outcome: Progressing Problem: Health Behavior Goal: Identification of resources available to assist in meeting health care needs will improve Outcome: Progressing Problem: Gastrointestinal Goal: Minimal or absence of nausea and vomiting Outcome: Progressing Goal: Maintains or returns to baseline bowel function Outcome: Progressing Goal: Maintains adequate nutritional intake Outcome: Progressing Goal: Will show no signs and symptoms of gastrointestinal bleeding Outcome: Progressing Problem: Neurosensory Goal: Achieves stable or improved neurological status Outcome: Progressing Goal: Achieves maximal functionality and self care Outcome: Progressing Goals: Clinical Goals for the Shift: Pain Control Summary: VSS, maintain safety and comfort, pain management. * Consults, Subsequent - Katharina Domingo MD PhD - 11/29/2023 2:03 PM CDT Biliary Subsequent Consult Subjective Chief complaint of abdominal pain. Interval History: - biliary re-engaged for post-ERCP pancreatitis. She developed abdominal pain and lipase 1154 - S/p ERCP 11/26/23 with findings of 5 mm stone in CBD, s/p sphincterotomy and stent placement - LFTs downtrending - She feels better this morning and reports her abdominal pain is improving. Tolerating CLD Objective Physical Exam: Vitals: 24hr Min/Max: Temp Min: 36.4 ??C (97.5 ??F) Max: 36.8 ??C (98.2 ??F) Pulse Min: 52 Max: 55 BP Min: 113/44 Max: 133/48 Resp Min: 16 Max: 20 SpO2 Min: 96 % Max: 99 % Most Recent : Vitals: 11/29/23 1335 BP: 133/48 Pulse: 52 Resp: 20 Temp: 36.7 ??C (98.1 ??F) SpO2: 98% General Appearance: Alert, cooperative, no distress. HEENT: Normocephalic, without obvious abnormality, atraumatic. No scleral icterus or conjunctival pallor. Lungs: Respirations unlabored Cardiovascular: Regular rate and rhythm Abdomen: Soft, non-tender, non-distended Extremities: No cyanosis or edema, no clubbing Skin: No rash Neurologic: Alert and oriented x 4. No focal deficits. Psychiatric: Normal mood and affect I/O last 2 completed shifts: In: 410 [P.O.:360; IV Piggyback:50] Out: - I/O this shift: In: 1000 [I.V.:1000] Out: - Lab/Radiology/Diagnostic Review: Recent Labs Lab Units 11/28/23 1749 11/27/23 2148 11/27/23 1441 11/27/23 0043 11/25/23 2126 11/25/23 1909 WBC K/cumm 3.7* 3.8 -- 5.2 -- 3.4* HEMOGLOBIN g/dL 8.0* 8.7* -- 9.3* -- 8.5* HEMATOCRIT % 25.5* 26.9* -- 28.4* -- 26.7* PLATELETS K/cumm 208 211 -- 220 -- 213 SODIUM mmol/L 138 137 136 136 -- 135 POTASSIUM PLASMA mmol/L 3.9 4.0 4.3 3.9 -- 3.9 CHLORIDE mmol/L 104 103 104 101 -- 103 CO2 mmol/L 23 23 22 22 -- 23 ANIONGAP mmol/L 11 11 10 13 -- 9 GLUCOSE mg/dL 87 93 125 92 -- 99 BUN SERUM mg/dL 18 20 21 16 -- 13 CREATININE mg/dL 1.18* 1.23* 1.23* 1.19* -- 1.22* CALCIUM mg/dL 8.8 9.3 9.3 9.6 -- 9.8 ALBUMIN g/dL 3.4* 3.5 3.3* 3.7 -- 3.5 BILIRUBIN TOTAL mg/dL 0.8 0.9 0.9 0.9 -- 0.8 ALK PHOS Units/L 133* 143* 136* 155* -- 152* ALT Units/L 338* 417* 424* 536* -- 683* AST Units/L 114* 129* 142* 184* -- 257* INR -- -- -- -- 1.04 1.15 Assessment/Plan Principal Problem: Acute hepatitis Active Problems: Hx of CABG Apical variant hypertrophic cardiomyopathy (HCC) A-fib (CMS/HCC) (HCC) Iron deficiency anemia, unspecified Choledocholithiasis Hematoma of right lower leg Chronic kidney disease (CKD), stage III (moderate) (HCC) Pancreatitis 78 y.o. 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 1. Acute liver injury. 2. Choledocholithiasis. Unusual presentation with acute onset abdominal pain, nausea, vomiting, and diarrhea 5 days ago around the time she started antibiotics for a leg wound. On presentation here with substantial elevation in LFTs, in hepatocellular pattern with normal Tbili. Of note her LFTs were also elevated/uptrending in August and September of this year, which makes a process such as DILI from antibiotics somewhat less likely. No prior history of choledocholithiasis. Normal bilirubin and lack of biliary ductal enhancement or increase in biliary ductal dilation on CT rule out cholangitis. At this point given evidence of stone in CBD and acute liver injury, ERCP iswarranted but not urgent. Will need 48 hours off anticoagulation as well (last dose 610 AM). LFTs downtrending. EUS 11/25 with stone visualized in CBD w/ductal dilation, otherwise unremarkable US exam. ERCP 11/25 with filling defect suspicious for choledocholithiasis, swept with sludge, s/p sphincterotomy and CMS placement into CBD given mild oozing at site and for spontaneous passage of stone fragments or microlithiasis. Biliary re-engaged 11/28 for post-ERCP pancreatitis. She developed abdominal pain and lipase 1154. Reports her abdominal pain is improving and she is able to tolerate CLD. Recs: - appreciate primary team supportive care for post-ERCP pancreatitis which is improving - Repeat ERCP in 6-8 weeks for stent removal (we will arrange this) We will continue to follow-up with you. Thank you for involving us in the care of this patient. If you have any questions, please call the biliary GI pager during weekdays or the [facility] phone during after hours and weekends. Katharina Domingo MD PhD Cosigned by Feng De La Garza MD at 11/29/2023 2:12 PM CDT * Plan of Care - Garth Arevalo RN - 11/29/2023 1:25 PM CDT Problem: Fall Risk Goal: Ability to state ways to decrease the risk of falls will improve Outcome: Progressing Flowsheets (Taken 11/29/2023 09) Ability to state ways to decrease the risk of falls will improve: Teach fall prevention measures Problem: Skin/Tissue Integrity Goal: Incisions, wounds, or drain sites healing without S/S of infection Outcome: Progressing Flowsheets (Taken 11/29/2023 09) Incision(s), Wound(s) or Drain Site(s) healing without S/S of infection: Assess and document skin integrity Problem: Musculoskeletal Goal: Return mobility to safest level of function Outcome: Progressing Flowsheets (Taken 11/29/2023 09) Return mobility to safest level of function: Assist with transfers and ambulation using safe patient handling equipment as needed Goals: Clinical Goals for the Shift: Increased ADLs, pain control. Summary: patient is alert and oriented x4, complain of some discomfort on right lower extremities with activity due to hematoma - patient was able to obtain some relief with rest and activity modification. Patient denies any nausea/vomiting and tolerate her clear liquid diet very well throughout her meals. * Assessment & Plan Note - Elio Lewis MD - 11/29/2023 1:09 PM CDT Associated Problem(s): Pancreatitis Post -procedural pancreatitis with Lipase>1000, epigastric tenderness. - Improving, CLD -IVF with LR -Serial exams and monitor for infection. Biliary aware on 11/28. - Tolerating diet well - Denies pain or nausea today * Assessment & Plan Note - Oscar De La Torre MD - 11/29/2023 1:06 PM CDT Associated Problem(s): Chronic kidney disease (CKD), stage III (moderate) (HCC) Cr 1.18 (bl 1.2-1.4). - monitor BMP, Scr improved, 0.88. * Assessment & Plan Note - Oscar De La Torre MD - 11/29/2023 1:05 PM CDT Associated Problem(s): Apical variant hypertrophic cardiomyopathy (HCC) - continue home metoprolol XL 25mg daily * Assessment & Plan Note - Oscar De La Torre MD - 11/29/2023 1:04 PM CDT Associated Problem(s): Iron deficiency anemia, unspecified Follows with [facility] Hematology. Anemia thought to be due to iron deficiency as well as CKD stage IIIb. Received iron infusion in 09/2023. On admission hgb 8.4 (bl 7-9). Iron 72, ferritin 1715. - Stable H/H, last 8.5 * Assessment & Plan Note - Oscar De La Torre MD - 11/29/2023 1:03 PM CDT Associated Problem(s): Hx of CABG - continue home metoprolol XL 25mg daily - continue home atorvastatin 80mg daily - continue home zetia * Assessment & Plan Note - Oscar De La Torre MD - 11/29/2023 1:03 PM CDT Associated Problem(s): A-fib (CMS/HCC) (HCC) Follows with [facility] Cardiology. History of afib with difficulty with rate control requiring cardioversion. Home regimen: amiodarone 200mg daily, metoprolol XL 25mg daily, eliquis 5mg BID. - continue home amiodarone 200mg daily - continue home metoprolol XL 25mg daily - restarted eliquis 5mg BID * Assessment & Plan Note - Oscar De La Torre MD - 11/29/2023 1:02 PM CDT Associated Problem(s): Hematoma of right lower leg Patient with swelling and pain of R leg, which began after a fall on 11/15. Went to PCP who was concerned for cellulitis and prescribed abx. While in ED, swelling increasing. US obtained showing hematoma. XR without acute fracture or osteomyelitis. Trauma Surgery consulted and recommended non-op management. - Santosh bandages for moderate compression * Assessment & Plan Note - Oscar De La Torre MD - 11/29/2023 1:01 PM CDT Associated Problem(s): Acute hepatitis On presentation here with substantial elevation in LFTs, in hepatocellular pattern with normal Tbili. Of note her LFTs were also elevated/uptrending in August and September of this year. - Noted to have CBD stones, s/p EUE/ERCP on 11/25 ,as noted above. - LFTS down trending slowly. Plan out pt f/u after d/c. * Assessment & Plan Note - Elio Lewis MD - 11/29/2023 12:58 PM CDT Associated Problem(s): Choledocholithiasis - GI/Biliary seen , noted imaging studies. -Underwent ERCP on 11/25 , EUS suggested stone but ERCP itself revealed only sludge visible; biliarysphincterotomy was performed and one coated metal stent placed. Needs f/u ERCP in 6-8 weeks for stent removal . -Pt developed post prandial pain on 11/28/23 and lipase demonstrated an elevation of 1100. She was made NPO and started on IVF. Clinically better with minimal pain, plan on CLD. GI ( Biliary) notifiedon 11/28. - Advance diet to regular ( low fat) on 11/29 and watch. - GI will arrange out pt f/u ERCP. * Hospital Course - Oscar De La Torre MD - 11/29/2023 7:50 AM CDT 78yo female with PMH significant for pAfib (s/p cardioversion 02/2023 with recurrence) on AC, ApicalVariant HCM, CAD (Dr. Stafford; [place] 08/2012 s/p CABG (LAWSON to LAD, SVG to OM), HTN, CKD stage 3b (b/l cr1.2 -1.4), and Vertigo who was admitted with N/V. #Choledocholithiasis #Post-procedural pancreatitis Patient presenting with 5 days of abdominal pain, nausea, and vomiting. Hepatocellular pattern of liver injury seen on labs. CT A/P on 11/23 found small stone in dependent portion of the common bile duct. Overall presentation most C/ W choledocholithiasis, but also considered medication side effect given recent antibiotic prescription. By time of admission, abdominal pain improving and nausea/vomiting resolved. Underwent ERCP on 11/27/23 with findings of 5 mm stone in CBD, s/p sphincterotomy and stent placement. Biliary re-engaged 11/28 for post-ERCP pancreatitis. She developed abdominal pain and lipase 1154. Reports her abdominal pain is improving and she is able tolerate low fat diet.Repeat E [employer] in 6-8 weeks for stent removal, will be arranged by Biliary. ---- #R Leg Hematoma Patient with swelling and pain of R leg, which began after a fall on 11/15. Went to PCP who was concerned for cellulitis and prescribed abx. While in ED, swelling increasing. US obtained showing hematoma. XR without acute fracture or osteomyelitis. Trauma Surgery consulted and recommended non-op management. Santosh bandages for moderate compression #Afib on Eliquis Follows with [facility]. History of afib with difficulty with rate control requiring cardioversion. Home regimen: amiodarone 200mg daily, metoprolol XL 25mg daily, eliquis 5mg BID. Continue home amiodarone 200mg daily and home metoprolol XL 25mg daily.Restart eliquis 5mg BID. #Chronic Normocytic Anemia Follows [facility]. Anemia thought to be due to iron deficiency as well as CKD stage IIIb. Received iron infusion in 09/2023. On admission hgb 8.4 (bl 7-9). Iron 72, ferritin 1715. #CKD IIIb Cr 1.18 (bl 1.2-1.4). Stable Scr, recent 0.88. #Symptomatic Orthostatic Hypotension - discontinued home midodrine 5mg TID given BP 120s-150s/50s-60s #CAD s/p CAGB - continue home metoprolol XL 25mg daily - continue home atorvastatin 80mg daily - continue home zetia #Apical Variant HCM - continue home metoprolol XL 25mg daily * Plan of Care - Tracy Tavarez - 11/28/2023 11:42 PM CDT Problem: Fall Risk Goal: Ability to state ways to decrease the risk of falls will improve Outcome: Progressing Goal: Will remain free from falls Outcome: Progressing Goal: Will remain free from injury from falls Outcome: Progressing Problem: Discharge Planning Goal: Understanding discharge needs will improve Outcome: Progressing Problem: Skin/Tissue Integrity Goal: Skin integrity remains intact Outcome: Progressing Goal: Incisions, wounds, or drain sites healing without S/S of infection Outcome: Progressing Goal: Oral mucous membranes remain intact Description: Outcome: Progressing Problem: Musculoskeletal Goal: Return mobility to safest level of function Outcome: Progressing Goal: Maintain proper alignment of affected body part Outcome: Progressing Goal: Return ADL status to a safe level of function Outcome: Progressing Goal: Ability to perform activities at highest level will improve Outcome: Progressing Goal: Mobility, ROM and muscle strength will improve Outcome: Progressing Problem: Infection Goal: Absence of infection during hospitalization Outcome: Progressing Goal: Absence of fever/infection during anticipated neutropenic period Outcome: Progressing Problem: Cardiovascular Goal: Maintains optimal cardiac output and hemodynamic stability Outcome: Progressing Goal: Absence of cardiac dysrhythmias or at baseline Outcome: Progressing Goal: Cardiovascular status will improve Outcome: Progressing Problem: Lack of Knowledge Goal: Ability to develop a pain control plan will improve Outcome: Progressing Problem: Medication Goal: Satisfaction with pain management medication regimen will improve Outcome: Progressing Problem: Sensory Goal: Ability to identify factors that increase pain levels will improve while working to decrease the patient's pain levels Outcome: Progressing Problem: Coping Goal: Ability to cope will improve Outcome: Progressing Problem: Health Behavior Goal: Identification of resources available to assist in meeting health care needs will improve Outcome: Progressing Problem: Gastrointestinal Goal: Minimal or absence of nausea and vomiting Outcome: Progressing Goal: Maintains or returns to baseline bowel function Outcome: Progressing Goal: Maintains adequate nutritional intake Outcome: Progressing Goal: Will show no signs and symptoms of gastrointestinal bleeding Outcome: Progressing Problem: Neurosensory Goal: Achieves stable or improved neurological status Outcome: Progressing Goal: Achieves maximal functionality and self care Outcome: Progressing Goals: Clinical Goals for the Shift: VSS,Monitor Labs Summary: VSS,monitor I&O and pt labs. No falls noted.Monitor for drug toxicity. * Significant Event - Ezequiel Jose MD - 11/28/2023 11:31 PM CDT Medicine Firm to Hospitalist Floor Transfer Accept Note Brief HPI/Hospital Course: Ms. Lobato is a pleasant 78yo female with PMH significant for pAfib (s/p cardioversion 02/2023 with recurrence) on AC, Apical Variant HCM, CAD (Dr. Stafford; [place] 08/2012 s/p CABG (LAWSON to LAD, SVG to OM), HTN, CKD stage 3b (b/l cr 1.2 -1.4), and Vertigo who was admitted with h epatitis/cholodocholithaisis on 11/24/23 and now being transferred to hospitalist after prior roomate being ruled out for TB. History has been obtained from the patient and indepednent review of our multiple records systems including [facility]. Below is a sumamry of above sources. She last saw cardiology (Dr. Stafford) on 08/20/23 where they discuss that she tries to walk daily and uses a wheeled walker.For pAF, they continued amiodarone 400mg daily, Metop XL 25mg daily, and eliquis. For apical variant HCM, they continued Metop XL. For CAD, they recommended to continue metop, atorvastatin, and Zetia. However after Cr slightly more elevated and slightly elevated AST/ALT, they red uced amiodarone to 200mg and if still elevated, would hold statin. She was last seen by hematology (Dr. Santana) on 10/03/23 for long standing normocytic anemia and CKD3b. At that time, it was noted that her HgB has downtrended over the past year to 7-8 range. She denied any dark stools. She was found to have a hgB of 8.3 with depleted iron stores (Ferritin 43/Tsat 7/Serum Iron 31). They discussed starting parenteral Iron repletion. She presetned to the ED on 11/24/23 with N/V/D/Abdominal pain x 5 days. Labs were notable for ALT 1087, AST 673, ALP 185, and normal bili. These symptoms began around when she started ABX for a leg wound. GI was consulted. ELiqus was held. CT A/P with contrast on 11/24/23 demonstrated, 1. Tiny hyperdensity within the dependent portion of the common bile duct is most consistent with a small stone. There is mild central intrahepatic and mild to moderate extrahepatic biliary duct dilatation to level the ampulla, similar in severity compared to prior examination. Consider further evaluation with ERCP. 2. New but age indeterminate moderate to severe compression fracture at T12. Unchanged moderatesevere height loss at T11. There are also healing right inferior and superior pubic rami fractures which are new from the prior exam. GI recommended ERCP however she was undecided. Bedside LE US demonstrated a 4/2cm pocket (hematoma vs infection) in the right leg. She was continued on Bactrim. General surgery was consulted who dicussed the non-obstrucitve choledocholithiasis iso remote total chol ecystectomy and recomennded manaement per GI team. Formal right lower extremity US demonstrated, Hypoechoic subcutaneous collection without vascularity or hyperemia compatible with an evolving hematoma. General surgery felt like there was no e/o infection or significant skin necrosis so would defer intervention and recommend correcting coagulopathy and apply compression dressing. EUS was performed on 11/26/23 which demonstrated 1 stone in the CBD with dilation in the entire mainduct. No e/o significant pathology in the pancreatic head, genu of the pancreas, or pancreatic body/tail. No e/o significant pathology in the left lobe of the liver. CEliac trunc normal. ERCP on 11/25demonstrated choledocholithiasis and biliary spincterotomy was performed and swept with sludge found. Ballon-occlusion cholangiogram was performed and no longer revealed a filling defect. One coveredmetal stent was placed into the CBD due to mild oozing and to allow spontaneous passage of any stone fragments or microlithiasis. They recommedned to avoid ASA/NSAIDS for 10 days, restart eliquis in 2 days, and repeat ERCP in 6-8 weeks for stent removal. Per [facility] note on 11/26/23 and 11/27/23, no motor or sensory defects in the RLE. They recommended SANTOSH bandage applied to provide moderate compression, OK to ice application, monitor for skin changes/drainage, monitor for loss of sensory/motor fx/worsening pain. No indication for evacuation/decompression and sigend off. GI last saw the patent on 11/27/23 where she reported feeling well with no abdominal pain. They recommended to advance diet and then restart eliquis on 11/28/23 with repeat ERCP in 6-8 weeks for stent removal and signed off. Unforuntunately she developed post prandial pain on 11/28/23 and lipase demonstrated an elevation [id number]. She was made NPO and started on IVF. She was started with cautious tylenol and NSAIDS given possible opioid anaphylaxis and this was discussing with pharmacy. Today, she reported feeling much beter with improved CARTER. Her most recent labs demonstrate Cr 1.18, Alk Phos 113 (down from 185 on 11/23), AST 114 (down from 673 on 11/23), ALT 338 (down from 1,087 on 11/23), T.bili 0.8, WBC 3.7 (chronically low), HgB 8.0 (chronically low), Plts 208. Most recent vitals demonstrate T36.4, 61, RR16, BP123/42, satting 96 on RA.She is now being transferred to hospitalist given prior roomate being ruled out for TB. On the hospitalist floor, she reports that she no longer has the RUQ tenderness and N/V that she had when she arrived however still has a mild epigastric pain though this is getting better. She does report this is tolerable. Was unable to eat the fish given to her yesterday. Note's no lower extremity weakness, numbness, parathesias. Brief Physical Examination: Constitutional: NAD Eyes: PERRL, EOMI, anicteric Lungs: Clear to auscultation in all lung burch, unlabored Cardiovascular: RRR, normal S1 and S2, no murmurs GI: Soft, mild epigastric tenderness, non-distended Extremities: Right lower flores with CDI compressive bandage. Distally intact dorsal pedal pulses bilaterally, intact sensation Neurologic: AOx4, face symmetric, normal strength and sensation Psychiatric: Normal affect and mood I have reviewed the patient's vital signs. Brief Assessment and Plan: #Possible TB exposure: Prior roommate is now being worked up for TB. -Discuss with IP in the morning #Choledocholithiasis/Elevated LFTs: Significant elevation in LFTs on arrival that is improving. Unclear if this from a choledocholithiasis or DLI. Of note, she has had elevated LFTs since 08/20/23 and amio had recently been decreased from 400 -> 200. Per Dr. Stafford's note, the plan was if the LFTs were still elevated, to consider stopping statin. -Will hold statin for now -Monitor LFTs -Will need to monitor as an outpatient, may need further workup if does not completely resolve though the improvement now is reassuirng -Will need repeat ERCP in 6-8 weeks for stent removal. #Post-procedural pancreatitis: Lipase>1000, epigastric tenderness.Improving -CLD -IVF with LR -Re-engage bili in the AM -Serial exams and monitor for infection #R Leg Hematoma: Evaluated by [facility] and non operative - Santosh bandages for moderate compression #Afib on Eliquis: - continue home amiodarone 200mg daily - continue home metoprolol XL 25mg daily - eliquis 5mg BID restarted 11/27 - monitor CBC #Chronic Normocytic Anemia [facility]. Anemia thought to be due to iron deficiency as well as CKD stage IIIb. Received iron infusion in 09/2023. On admission hgb 8.4 (bl 7-9). Iron 72, ferritin 1715. PLAN - daily CBC #CKD IIIb Cr 1.18 (bl 1.2-1.4). - monitor daily BMP #Symptomatic Orthostatic Hypotension - discontinued home midodrine 5mg TID given BP 120s-150s/50s-60s #CAD s/p CAGB - continue home metoprolol XL 25mg daily - Will hold home atorvastatin 80mg daily given per Dr. Stafford's note, the plan was if the LFTs were still elevated, to consider stopping statin and LFTs still elevated. - continue home zetia #Apical Variant HCM - continue home metoprolol XL 25mg daily #Compression Fractures:Moderate to severe compression fracture at T12 with old unchanged moderate height loss at T11 and healing superior pubic rami fractures. She notes no LE weakness, numbness, parathesias. -Consider discussing with spine -Will need outpatient workup/treatment for osteoperosis. * Plan of Care - Eda Ann, RN - 11/28/2023 10:44 PM CDT Problem: Gastrointestinal Goal: Maintains adequate nutritional intake Outcome: Ongoing Problem: Musculoskeletal Goal: Return mobility to safest level of function Outcome: Partially Met Goal: Maintain proper alignment of affected body part Outcome: Partially Met Goal: Return ADL status to a safe level of function Outcome: Partially Met Goal: Ability to perform activities at highest level will improve Outcome: Partially Met Goal: Mobility, ROM and muscle strength will improve Outcome: Partially Met Problem: Coping Goal: Ability to cope will improve Outcome: Partially Met Problem: Gastrointestinal Goal: Minimal or absence of nausea and vomiting Outcome: Partially Met Problem: Neurosensory Goal: Achieves stable or improved neurological status Outcome: Partially Met Goal: Achieves maximal functionality and self care Outcome: Partially Met Problem: Fall Risk Goal: Ability to state ways to decrease the risk of falls will improve Outcome: Progressing Goal: Will remain free from falls Outcome: Progressing Goal: Will remain free from injury from falls Outcome: Progressing Problem: Discharge Planning Goal: Understanding discharge needs will improve Outcome: Progressing Problem: Skin/Tissue Integrity Goal: Skin integrity remains intact Outcome: Progressing Goal: Incisions, wounds, or drain sites healing without S/S of infection Outcome: Progressing Goal: Oral mucous membranes remain intact Description: Outcome: Progressing Problem: Infection Goal: Absence of infection during hospitalization Outcome: Progressing Goal: Absence of fever/infection during anticipated neutropenic period Outcome: Progressing Problem: Cardiovascular Goal: Maintains optimal cardiac output and hemodynamic stability Outcome: Progressing Goal: Absence of cardiac dysrhythmias or at baseline Outcome: Progressing Goal: Cardiovascular status will improve Outcome: Progressing Problem: Lack of Knowledge Goal: Ability to develop a pain control plan will improve Outcome: Progressing Problem: Medication Goal: Satisfaction with pain management medication regimen will improve Outcome: Progressing Problem: Sensory Goal: Ability to identify factors that increase pain levels will improve while working to decrease the patient's pain levels Outcome: Progressing Problem: Health Behavior Goal: Identification of resources available to assist in meeting health care needs will improve Outcome: Progressing Problem: Gastrointestinal Goal: Maintains or returns to baseline bowel function Outcome: Progressing Goal: Will show no signs and symptoms of gastrointestinal bleeding Outcome: Progressing Goals: Clinical Goals for the Shift: VSS, Monitor labs, Monitor I&O, Promote safety and comfort Summary: * Plan of Emerita - aMrilee Garcia RN - 11/28/2023 12:07 PM CDT Problem: Fall Risk Goal: Ability to state ways to decrease the risk of falls will improve Outcome: Progressing Goal: Will remain free from falls Outcome: Progressing Goal: Will remain free from injury from falls Outcome: Progressing Problem: Discharge Planning Goal: Understanding discharge needs will improve Outcome: Progressing Problem: Skin/Tissue Integrity Goal: Skin integrity remains intact Outcome: Progressing Goal: Incisions, wounds, or drain sites healing without S/S of infection Outcome: Progressing Goal: Oral mucous membranes remain intact Description: Outcome: Progressing Problem: Musculoskeletal Goal: Return mobility to safest level of function Outcome: Progressing Goal: Maintain proper alignment of affected body part Outcome: Progressing Goal: Return ADL status to a safe level of function Outcome: Progressing Goal: Ability to perform activities at highest level will improve Outcome: Progressing Goal: Mobility, ROM and muscle strength will improve Outcome: Progressing Problem: Infection Goal: Absence of infection during hospitalization Outcome: Progressing Goal: Absence of fever/infection during anticipated neutropenic period Outcome: Progressing Problem: Cardiovascular Goal: Maintains optimal cardiac output and hemodynamic stability Outcome: Progressing Goal: Absence of cardiac dysrhythmias or at baseline Outcome: Progressing Goal: Cardiovascular status will improve Outcome: Progressing Problem: Lack of Knowledge Goal: Ability to develop a pain control plan will improve Outcome: Progressing Problem: Medication Goal: Satisfaction with pain management medication regimen will improve Outcome: Progressing Problem: Sensory Goal: Ability to identify factors that increase pain levels will improve while working to decrease the patient's pain levels Outcome: Progressing Problem: Coping Goal: Ability to cope will improve Outcome: Progressing Problem: Health Behavior Goal: Identification of resources available to assist in meeting health care needs will improve Outcome: Progressing Problem: Gastrointestinal Goal: Minimal or absence of nausea and vomiting Outcome: Progressing Goal: Maintains or returns to baseline bowel function Outcome: Progressing Goal: Maintains adequate nutritional intake Outcome: Progressing Goal: Will show no signs and symptoms of gastrointestinal bleeding Outcome: Progressing Goals: Clinical Goals for the Shift: VSS, Monitor labs, Monitor I&O, Promote safety and comfort * Plan of Emerita - Eda Ann RN - 11/27/2023 11:20 PM CDT Problem: Gastrointestinal Goal: Maintains or returns to baseline bowel function Outcome: Ongoing Goal: Maintains adequate nutritional intake Outcome: Ongoing Problem: Fall Risk Goal: Ability to state ways to decrease the risk of falls will improve Outcome: Partially Met Goal: Will remain free from falls Outcome: Partially Met Goal: Will remain free from injury from falls Outcome: Partially Met Problem: Discharge Planning Goal: Understanding discharge needs will improve Outcome: Partially Met Problem: Musculoskeletal Goal: Return mobility to safest level of function Outcome: Partially Met Goal: Maintain proper alignment of affected body part Outcome: Partially Met Goal: Return ADL status to a safe level of function Outcome: Partially Met Goal: Ability to perform activities at highest level will improve Outcome: Partially Met Goal: Mobility, ROM and muscle strength will improve Outcome: Partially Met Problem: Cardiovascular Goal: Cardiovascular status will improve Outcome: Partially Met Problem: Lack of Knowledge Goal: Ability to develop a pain control plan will improve Outcome: Partially Met Problem: Medication Goal: Satisfaction with pain management medication regimen will improve Outcome: Partially Met Problem: Sensory Goal: Ability to identify factors that increase pain levels will improve while working to decrease the patient's pain levels Outcome: Partially Met Problem: Coping Goal: Ability to cope will improve Outcome: Partially Met Problem: Health Behavior Goal: Identification of resources available to assist in meeting health care needs will improve Outcome: Partially Met Problem: Gastrointestinal Goal: Minimal or absence of nausea and vomiting Outcome: Partially Met Goal: Will show no signs and symptoms of gastrointestinal bleeding Outcome: Partially Met Problem: Skin/Tissue Integrity Goal: Skin integrity remains intact Outcome: Progressing Goal: Incisions, wounds, or drain sites healing without S/S of infection Outcome: Progressing Goal: Oral mucous membranes remain intact Description: Outcome: Progressing Problem: Infection Goal: Absence of infection during hospitalization Outcome: Progressing Goal: Absence of fever/infection during anticipated neutropenic period Outcome: Progressing Problem: Cardiovascular Goal: Maintains optimal cardiac output and hemodynamic stability Outcome: Progressing Goal: Absence of cardiac dysrhythmias or at baseline Outcome: Progressing Goals: Clinical Goals for the Shift: VSS, Monitor labs, Monitor I&O, Promote safety and comfort Summary: * Plan of Care - Aysha Laird RN - 11/27/2023 9:19 AM CDT Goals: VSS, free from falls, maintain skin integrity Summary: Problem: Fall Risk Goal: Ability to state ways to decrease the risk of falls will improve Outcome: Progressing Goal: Will remain free from falls Outcome: Progressing Goal: Will remain free from injury from falls Outcome: Progressing Problem: Skin/Tissue Integrity Goal: Skin integrity remains intact Outcome: Progressing Goal: Incisions, wounds, or drain sites healing without S/S of infection Outcome: Progressing Goal: Oral mucous membranes remain intact Description: Outcome: Progressing Problem: Infection Goal: Absence of infection during hospitalization Outcome: Progressing Goal: Absence of fever/infection during anticipated neutropenic period Outcome: Progressing * Consults, Subsequent - Melisa Pritchett MD - 11/27/2023 8:56 AM CDT Biliary Subsequent Consult Subjective Chief complaint of abdominal pain. Interval History: - S/p ERCP yesterday with findings of 5 mm stone in CBD, s/p sphincterotomy and stent placement - LFTs still downtrending - She feels ok this morning, no abdominal pain. She's just fatigued from not sleeping well the pastfew days Objective Physical Exam: Vitals: 24hr Min/Max: Temp Min: 36 ??C (96.8 ??F) Max: 36.7 ??C (98.1 ??F) Pulse Min: 49 Max: 68 BP Min: 128/52 Max: 161/35 Resp Min: 13 Max: 18 SpO2 Min: 97 % Max: 100 % Most Recent : Vitals: 11/27/23 0823 BP: 131/53 Pulse: 58 Resp: Temp: 36.6 ??C (97.9 ??F) SpO2: 98% General Appearance: Alert, cooperative, no distress. HEENT: Normocephalic, without obvious abnormality, atraumatic. No scleral icterus or conjunctival pallor. Lungs: Respirations unlabored Cardiovascular: Regular rate and rhythm Abdomen: Soft, non-tender, non-distended Extremities: No cyanosis or edema, no clubbing Skin: No rash Neurologic: Alert and oriented x 4. No focal deficits. Psychiatric: Normal mood and affect I/O last 2 completed shifts: In: 505 [P.O.:5; I.V.:500] Out: 400 [Urine:400] No intake/output data recorded. Lab/Radiology/Diagnostic Review: Recent Labs Lab Units 11/27/23 0043 11/25/23 2126 11/25/23 1909 11/25/23 0647 WBC K/cumm 5.2 -- 3.4* 3.8 HEMOGLOBIN g/dL 9.3* -- 8.5* 8.4* HEMATOCRIT % 28.4* -- 26.7* 26.2* PLATELETS K/cumm 220 -- 213 198 SODIUM mmol/L 136 -- 135 135 POTASSIUM PLASMA mmol/L 3.9 -- 3.9 4.0 CHLORIDE mmol/L 101 -- 103 102 CO2 mmol/L 22 -- 23 20* ANIONGAP mmol/L 13 -- 9 13 GLUCOSE mg/dL 92 -- 99 84 BUN SERUM mg/dL 16 -- 13 11 CREATININE mg/dL 1.19* -- 1.22* 1.18* CALCIUM mg/dL 9.6 -- 9.8 9.8 ALBUMIN g/dL 3.7 -- 3.5 3.6 BILIRUBIN TOTAL mg/dL 0.9 -- 0.8 0.9 ALK PHOS Units/L 155* -- 152* 166* ALT Units/L 536* -- 683* 796* AST Units/L 184* -- 257* 364* INR -- 1.04 1.15 -- Assessment/Plan Principal Problem: Acute hepatitis Active Problems: Choledocholithiasis 78 y.o. 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 1. Acute liver injury. 2. Choledocholithiasis. Unusual presentation with acute onset abdominal pain, nausea, vomiting, and diarrhea 5 days ago around the time she started antibiotics for a leg wound. On presentation here with substantial elevation in LFTs, in hepatocellular pattern with normal Tbili. Of note her LFTs were also elevated/uptrending in August and September of this year, which makes a process such as DILI from antibiotics somewhat less likely. No prior history of choledocholithiasis. Normal bilirubin and lack of biliary ductal enhancement or increase in biliary ductal dilation on CT rule out cholangitis. At this point given evidence of stone in CBD and acute liver injury, ERCP iswarranted but not urgent. Will need 48 hours off anticoagulation as well (last dose 6/10 AM). LFTs downtrending. EUS 11/25 with stone visualized in CBD w/ductal dilation, otherwise unremarkable US exam. ERCP 11/25 with filling defect suspicious for choledocholithiasis, swept with sludge, s/p sphincterotomy and CMS placement into CBD given mild oozing at site and for spontaneous passage of stone fragments or microlithiasis. Recs: - Advance to regular diet today - Restart Eliquis tomorrow 11/27 - Repeat ERCP in 6-8 weeks for stent removal (we will arrange this) We will sign off. Thank you for involving us in the care of this patient. If you have any questions, please call the biliary GI pager during weekdays or the [facility] phone during after hours and weekends. Melisa Pritchett MD * Plan of Care - Isaak Otero - 11/27/2023 1:27 AM CDT Problem: Fall Risk Goal: Ability to state ways to decrease the risk of falls will improve Outcome: Progressing Flowsheets (Taken 11/26/202311) Ability to state ways to decrease the risk of falls will improve: Teach fall prevention measures Goal: Will remain free from falls Outcome: Progressing Flowsheets (Taken 11/26/202311) Will remain free from falls: Assess risk factors for falls Goal: Will remain free from injury from falls Outcome: Progressing Flowsheets (Taken 11/27/2023 0125) Will remain free from injury from falls: Provide safe environment for conduction of activities of daily living in hospital environment Problem: Discharge Planning Goal: Understanding discharge needs will improve Outcome: Progressing Flowsheets (Taken 11/26/202311) Understanding of discharge needs will improve: Discuss information regarding discharge instructions Collaborate with case management interdisciplinary team Problem: Skin/Tissue Integrity Goal: Skin integrity remains intact Outcome: Progressing Flowsheets (Taken 11/26/202311) Skin integrity remains intact: Assess and document risk factors for pressure injury development Goal: Incisions, wounds, or drain sites healing without S/S of infection Outcome: Progressing Flowsheets (Taken 11/26/202311) Incision(s), Wound(s) or Drain Site(s) healing without S/S of infection: Assess and document risk factors for pressure injury development Implement wound care per orders Goal: Oral mucous membranes remain intact Description: Outcome: Progressing Flowsheets (Taken 11/26/202311) Oral mucous membranes remain intact: Assess oral mucosa and hygiene practices Problem: Musculoskeletal Goal: Return mobility to safest level of function Outcome: Progressing Flowsheets (Taken 11/26/202311) Return mobility to safest level of function: Assess patient stability and activity tolerance for standing, transferring and ambulating with or without assistive devices Assist with transfers and ambulation using safe patient handling equipment as needed Goal: Maintain proper alignment of affected body part Outcome: Progressing Flowsheets (Taken 11/26/202311) Maintain proper alignment of affected body part: Support and protect limb and body alignment per provider's orders Goal: Return ADL status to a safe level of function Outcome: Progressing Flowsheets (Taken 11/27/2023124) Return activities of daily living status to a safe level of function: Assess patient's activities of daily living deficits and provide assistive devices as needed Goal: Ability to perform activities at highest level will improve Outcome: Progressing Flowsheets (Taken 11/27/2023124) Ability to perform activities at highest level will improve: Collaborate with rehabilitation services Goal: Mobility, ROM and muscle strength will improve Outcome: Progressing Flowsheets (Taken 11/27/2023124) Mobility, ROM and muscle strength will improve: Provide proper bed mobility techniques Encourage mobilization to extent of ability Problem: Infection Goal: Absence of infection during hospitalization Outcome: Progressing Flowsheets (Taken 11/27/2023124) Absence of infection during hospitalization: Assess and monitor for signs and symptoms of infection Goal: Absence of fever/infection during anticipated neutropenic period Outcome: Progressing Flowsheets (Taken 11/27/2023124) Absence of fever/infection during anticipated neutropenic period: Monitor ANC results Cosigned by Baylee Soto RN at 11/27/2023 3:14 AM CDT * Provider Query - Janice Molina MD - 11/26/2023 4:42 PM CDT Clinical Indicators/Treatments: 78 y.o. patient with h/o Afib s/p cardioversion 02/2023 on Eliquis, CAD, PA in 2013 s/p CABG, apical variant HCM, CKD III, and chronic anemia who presents with nausea/vomiting and leg swelling. (H&P) MD Tracy: #Afib on Eliquis Follows with [facility]. History of afib with difficulty with rate control requiring cardioversion. Home regimen: amiodarone 200mg daily, metoprolol XL 25mg daily, eliquis 5mg BID. PLAN - continue home amiodarone 200mg daily - continue home metoprolol XL 25mg daily - hold home eliquis in anticipation of possible procedure Specify the type of Atrial Fibrillation in the medical record and on the form below. _x___Paroxysmal Atrial Fibrillation Defined as: Self- terminating or intermittent. Terminates spontaneously or with intervention within7 days of onset. ____ Permanent Atrial Fibrillation Defined as: Persistent or longstanding persistent atrial fibrillation where cardioversion cannot orwill not be performed or is not indicated. ____ Persistent Atrial Fibrillation Defined as: Does not terminate within 7 days or that requires repeat pharmacological or electrical cardioversion ____Persistent Long standing Atrial Fibrillation Defined as: Persistent and continuous atrial fibrillation lasting longer than one year. ____Chronic Atrial Fibrillation, other than listed above ____Other, specify below Additional Provider Response: References: Source: [facility], 2018, page 3. From the ICD-10-CM Coding Guidelines, use of terms such as likely, suspected, possible, or probable(associated with a specific diagnosis that is being evaluated, monitored, or treated as if it exists) are acceptable and can be coded in the inpatient setting when documented at the time of discharge. This documentation will become part of the patient???s medical record. Estelle Clark RN, BSN Clinical Clinical Biochemist [email or web address] [phone] * Initial Assessments - Marce Browne RN - 11/26/2023 10:10 AM CDT CM Initial Assessment Interview Note Information Obtained From: Patient (11/26/231006) Admission Source: From her assisted living facility Impression: 78 yr. Old female admitted for 5 days of abd. Pain, nausea, vomitting. CT on11/23 showeda small stone in the common bile duct. Pending ERCP on Fri. 11/25 PMH of A-fib with cardioversion on 02/2023 On Eliquis. Plan Includes: Return to home once medically stable. Primary Source of Transportation: Does the patient need discharge transport arranged?: No (11/26/231006) Health Insurance Coverage: [employer]. Prescription Coverage: not sure Pharmacy: [email or web address] [address] [address] Primary Care Provider: Cristian Ling MD- verified. Prior to Admission: Functional Status: Independent with ADLs Primary Caregiver: Self Support System: Family members Home Care Services: No Outpatient Services: No Durable Medical Equipment: Walker (wheeled) Living Arrangements: Other (Comment), Alone Type of Residence: Assisted living Does patient wish to return to care facility?: Yes, wishes to return Will the care facility allow the patient to return?: Yes, patient can return Care Facility Name: [facility] contact name and number:: [facility] / [phone] Steps in home?: No steps inside or outside Medication management: Independent (11/25/231812) Potential discharge needs include: guest service manager will follow for post acute discharge needs such as therapy, nursing, medical equipment or agency referrals as indicated by the care team. OP Services: none Dialysis: no Behavioral Health Services: Behavioral Health Services: No (11/26/231006) Anticipated Level of Care: Anticipated discharge level of care: Assisted living (11/26/231006) Patient expects to be Discharged to: Assisted Living, (11/25/231812) Additional Information: Confirmed address and phone to [email or web address]. Patient independent in ADLS. Lives in Assisted living facility. They provide cleaning, meals, assistance with setting up meds. Family for assist post - hospitalization/DC needs. Patient's Identified Problem/Goal Problem: Ensure acute medical needs are met and that patient has a safe discharge plan. Goal: Secure a discharge plan that patient/family are agreeable with and ensure patient has continuum of care. Case management will follow for discharge planning and send referrals as needed. Goals include: To assure continuity of care, To maximize coping skills, To assure patient is in a safe environment and To assure access to community resources. Plan includes: 1. Collaboration with Patient, Provider, Direct Care Nurse, Kitchen Porter, and other members of theHealth Care Team to assure needed interventions completed. 2. Return patient to optimal level of self-care post discharge. 3. Broomcorn Sorter will follow for Discharge Planning - interventions as needed 4. Anticipated level of care at discharge 5. Planned Discharge Disposition Marce Browne RN * Plan of Care - Aysha Laird RN - 11/26/2023 9:53 AM CDT Goals: VSS, free from falls, maintain skin integrity Summary: Problem: Fall Risk Goal: Ability to state ways to decrease the risk of falls will improve Outcome: Progressing Goal: Will remain free from falls Outcome: Progressing Goal: Will remain free from injury from falls Outcome: Progressing Problem: Skin/Tissue Integrity Goal: Skin integrity remains intact Outcome: Progressing Goal: Incisions, wounds, or drain sites healing without S/S of infection Outcome: Progressing Goal: Oral mucous membranes remain intact Description: Outcome: Progressing Problem: Musculoskeletal Goal: Return mobility to safest level of function Outcome: Progressing Goal: Maintain proper alignment of affected body part Outcome: Progressing Goal: Return ADL status to a safe level of function Outcome: Progressing Goal: Ability to perform activities at highest level will improve Outcome: Progressing Goal: Mobility, ROM and muscle strength will improve Outcome: Progressing Problem: Infection Goal: Absence of infection during hospitalization Outcome: Progressing Goal: Absence of fever/infection during anticipated neutropenic period Outcome: Progressing * Plan of Care - Isaak Otero - 11/26/2023 12:13 AM CDT Problem: Fall Risk Goal: Ability to state ways to decrease the risk of falls will improve Outcome: Progressing Flowsheets (Taken 11/26/202311) Ability to state ways to decrease the risk of falls will improve: Teach fall prevention measures Goal: Will remain free from falls Outcome: Progressing Flowsheets (Taken 11/26/202311) Will remain free from falls: Assess risk factors for falls Goal: Will remain free from injury from falls Outcome: Progressing Problem: Discharge Planning Goal: Understanding discharge needs will improve Outcome: Progressing Flowsheets (Taken 11/26/202311) Understanding of discharge needs will improve: Discuss information regarding discharge instructions Collaborate with case management interdisciplinary team Problem: Skin/Tissue Integrity Goal: Skin integrity remains intact Outcome: Progressing Flowsheets (Taken 11/26/202311) Skin integrity remains intact: Assess and document risk factors for pressure injury development Goal: Incisions, wounds, or drain sites healing without S/S of infection Outcome: Progressing Flowsheets (Taken 11/26/202311) Incision(s), Wound(s) or Drain Site(s) healing without S/S of infection: Assess and document risk factors for pressure injury development Implement wound care per orders Goal: Oral mucous membranes remain intact Description: Outcome: Progressing Flowsheets (Taken 11/26/202311) Oral mucous membranes remain intact: Assess oral mucosa and hygiene practices Problem: Musculoskeletal Goal: Return mobility to safest level of function Outcome: Progressing Flowsheets (Taken 11/26/202311) Return mobility to safest level of function: Assess patient stability and activity tolerance for standing, transferring and ambulating with or without assistive devices Assist with transfers and ambulation using safe patient handling equipment as needed Goal: Maintain proper alignment of affected body part Outcome: Progressing Flowsheets (Taken 11/26/202311) Maintain proper alignment of affected body part: Support and protect limb and body alignment per provider's orders Goal: Return ADL status to a safe level of function Outcome: Progressing Flowsheets (Taken 11/26/202311) Return activities of daily living status to a safe level of function: Assess patient's activities of daily living deficits and provide assistive devices as needed Obtain PT/OT consults as needed Goal: Ability to perform activities at highest level will improve Outcome: Progressing Flowsheets (Taken 11/26/202311) Ability to perform activities at highest level will improve: Manage use of immobilizer Implement use of braces, orthotics Goal: Mobility, ROM and muscle strength will improve Outcome: Progressing Flowsheets (Taken 11/26/202311) Mobility, ROM and muscle strength will improve: Provide proper bed mobility techniques Encourage prescribed exercise Problem: Infection Goal: Absence of infection during hospitalization Outcome: Progressing Flowsheets (Taken 11/26/202311) Absence of infection during hospitalization: Assess and monitor for signs and symptoms of infection Monitor lab/diagnostic results Goal: Absence of fever/infection during anticipated neutropenic period Outcome: Progressing Flowsheets (Taken 11/26/202311) Absence of fever/infection during anticipated neutropenic period: Monitor ANC results Cosigned by Baylee Soto RN at 11/26/2023 1:41 AM CDT * Plan of Care - Hanny Bethea RN - 11/25/2023 6:00 PM CDT Problem: Fall Risk Goal: Ability to state ways to decrease the risk of falls will improve Outcome: Progressing Goal: Will remain free from falls Outcome: Progressing Goal: Will remain free from injury from falls Outcome: Progressing Goals: Summary: Prevent falls, reorient to surroundings * ED Re-evaluation Note - Nathalie Girard MD - 11/25/2023 2:45 PM CDT ED Re-evaluation TRANSITION OF CARE: I, Raquel Girard MD, am assuming care of this patient. I have reviewed all pertinent vital signs,allergies, and history available in the chart. Patient is a hospitalist patient. ED Course as of 11/25/23 1445 Time: 11/23 1029 Comment: I have seen and examined the patient on 11/24/23. I agree with the findings and plan of care as documented in the resident's note. By: Elisha Jose MD Time: 11/23 1137 Comment: Bedside ultrasound shows concern for infected hematoma versus abscess, approx 2cm in depthand 4cm in diameter, with cobblestoning surrounding. By: Elisha Jose MD Time: 11/23 2281 Comment: Hx IBS, a-fib Eliquis P/w N/V/D in setting of Abx for leg wound Admit Med elevated LFTs Will d/w GI re: ERCP By: Bolivar Llamas MD Time: 11/23 6523 Comment: GI consulted re: stone, will evaluate patient By: Bolivar Llamas MD Time: 11/23 0142 Comment: Attending signout: 78 yoF with hx of IBS, afib on eliquis, CKD, leg wound on abx here withN/V/D. LFTs elevated and found to have CBD stone. No fever, chills. GI to see in AM. By: Baylee Pepper MD Time: 11/24 1110 Value: C. diff result: Negative, free toxin Comment: (Reviewed) By: Nallely Johns MD McKnight, Mackenzie Ann, MD Resident 11/25/231900 * Significant Event - Elio Lewis MD - 11/25/2023 9:06 AM CDT ED Hospitalist Event Note In my role as the ED hospitalist, I have seen and examined this patient and reviewed the chart. I have discussed with the ED team and will assume care of this patient until an inpatient bed and team is assigned. Tiera Lobato is a 78 y.o. 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 Hemodynamically stable and afebrile in the ED. admission labs with elevated liver chemistries with ALT of 1087, AST of 673, alk-phos 185, normal bili of 0.9, creatinine of 1.29 at baseline, mild leukopenia with white count of 3.2, chronic anemia with hemoglobin of 8.8. CT abdomen with small common bile duct stone with mild biliary ductal dilatation. Biliary team evaluated her for possible ERCP after 48 hours of Eliquis washout on 11/25. She is being admitted to Medicine for further management. Today, she reports feeling better. She had some nausea and abdominal pain earlier but has improved now. She still reports right leg pain and severe tenderness. No fevers or chills. # Elevated liver chemistries - admission labs with elevated liver chemistries with ALT of 1087, AST of 673, alk-phos 185, normalbili of 0.9. - CT abdomen with small common bile duct stone with mild biliary ductal dilatation. - Biliary team evaluated her for possible ERCP after 48 hours of Eliquis washout on 11/25. - patient is still undecided about the procedure. She and her son want to talk to the biliary team was before proceeding with ERCP. - liver Chemstrips down trending today. # Rt leg swelling - Bed side US in ED with 4 cm x 2 cm pocket - hematoma vs infection. - Spoke with ED attending, obtaining a formal US before proceeding with decision about drainage. - No systemic sx. WBC WNL. - Reports severe tenderness on exam. Continue pain control. - Continue Bactrim Elio Lewis MD - You can contact this provider until 7 pm today. - Please contact Hospitalist Cross cover with questions after 7 pm. - For patients in ED and on [facility], please contact [phone] - For patients on [facility], please contact [phone] * ED Re-evaluation Note - Nallely Johns MD - 11/25/2023 7:18 AM CDT ED Re-evaluation 78yoF h/o IBS, afib on eliquis, CAD, CABG, HTN p/w LLE wound on abx, p/w vomiting, diarrhea, abd pain,found to have CBD stone. Repeat labs pending, but GI will likely take today for ERCP. Nallely Johns MD 11/25/23 1531 * ED Re-evaluation Note - Seamus Pimentel Jr., MD - 11/24/2023 10:55 PM CDT ED Re-evaluation TRANSITION OF CARE: I, Seamus Pimentel Jr., MD, am taking signout. I have reviewed all pertinent vital signs, allergies, and history available in the chart. Summary: 78 y.o. 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 On abxs for leg wound. Bedside US w/ c/f abscess vs infected hematoma,CT most likely gallstone. LFTs elevated. GI c/s. Plan for ERCP. Pending: Bed Dispo: Admit med ED Course as of 11/25/23 1110 Time: 11/23 1029 Comment: I have seen and examined the patient on 11/24/23. I agree with the findings and plan of care as documented in the resident's note. By: Elisha Jose MD Time: 11/23 1137 Comment: Bedside ultrasound shows concern for infected hematoma versus abscess, approx 2cm in depthand 4cm in diameter, with cobblestoning surrounding. By: Elisha Jose MD Time: 11/23 1511 Comment: Hx IBS, a-fib Eliquis P/w N/V/D in setting of Abx for leg wound Admit Med elevated LFTs Will d/w GI re: ERCP By: Bolivar Llamas MD Time: 11/23 7915 Comment: GI consulted re: cherrie, will evaluate patient By: Bolivar Llamas MD Time: 11/23 2312 Comment: Attending signout: 78 yoF with hx of IBS, afib on eliquis, CKD, leg wound on abx here withN/V/D. LFTs elevated and found to have CBD stone. No fever, chills. GI to see in AM. By: Baylee Pepper MD Time: 11/24 1110 Value: C. diff result: Negative, free toxin Comment: (Reviewed) By: Nallely Johns MD Vaca, Roland Scott Jr., MD Resident 11/25/23 0602 * ED Re-evaluation Note - Bolivar Llamas MD - 11/24/2023 2:36 PM CDT ED Re-evaluation TRANSITION OF CARE: I, Bolivar Llamas MD, am taking signout and assuming care of this patient from Dr Cunningham. I have reviewed all pertinent vital signs, allergies, history and physical exam available in the chart. Brief summary: Tiera Lobato is a 78 y.o. female with PMH IBS, Afib s/p cardioversion 02/2023 on Eliquis, CAD, PA in 2012 s/p CABG, HTN HLD, apical variant HCM, CKD III, chronic anemia who presents today for 5 days of vomiting, diarrhea and abdominal pain. Unable to tolate PO. Also c/f infected leg hematoma. S/p fluids, antiemetics. Pending UA, CT AP. Admit Med. ED Course as of 11/25/23 1140 Time: 11/23 1029 Comment: I have seen and examined the patient on 11/24/23. I agree with the findings and plan of care as documented in the resident's note. By: Elisha Jose MD Time: 11/23 1137 Comment: Bedside ultrasound shows concern for infected hematoma versus abscess, approx 2cm in depthand 4cm in diameter, with cobblestoning surrounding. By: Elisha Jose MD Time: 11/23 1511 Comment: Hx IBS, a-fib Eliquis P/w N/V/D in setting of Abx for leg wound Admit Med elevated LFTs Will d/w GI re: ERCP By: Bolivar Llamas MD Time: 11/23 9375 Comment: GI consulted re: cherrie will evaluate patient By: Bolivar Llamas MD Time: 11/23 7353 Comment: Attending signout: 78 yoF with hx of IBS, afib on eliquis, CKD, leg wound on abx here withN/V/D. LFTs elevated and found to have CBD stone. No fever, chills. GI to see in AM. By: Baylee Pepper MD Time: 11/24 1110 Value: C. diff result: Negative, free toxin Comment: (Reviewed) By: Nallely Johns MD Sean Lamb, MD Emergency Medicine, PGY-3 Pager: [phone] Bolivar Llamas MD Resident 11/25/23 1140 documented in this encounter Plan of Treatment Pending Results Name Type Priority Associated Diagnoses Date/Time ESOPHAGOGASTRODUODENOSCOPY ENDOSCOPIC ULTRASOUND Endo Imaging Procedure IP Routine Choledocholithi asis 11/26/2023 4:54 PM CDT FL ERCP Endo Imaging Procedure IP Routine Choledocholithi asis 11/26/2023 4:54 PM CDT documented as of this encounter Procedures Procedure Name Priority Date/Time Associated Diagnosis Comments EGFR Timed 12/01/2023 10:06 PM CDT CBC WITHOUT DIFFERENTIAL Timed 12/01/2023 10:06 PM CDT TYPE AND SCREEN Timed 12/01/2023 10:06 PM CDT COMPREHENSIVE METABOLIC PANEL Timed 12/01/2023 10:06 PM CDT EGFR Routine 11/29/2023 9:59 PM CDT DIFFERENTIAL AUTO Routine 11/29/2023 9:5 9 PM CDT CBC WITH AUTO DIFFERENTIAL Routine 11/29/2023 9:59 PM CDT COMPREHENSIVE METABOLIC PANEL Routine 11/29/2023 9:59 PM CDT EGFR Routine 11/28/2023 5:49 PM CDT DIFFERENTIAL AUTO Routine 11/28/2023 5:4 9 PM CDT CBC WITH AUTO DIFFERENTIAL Routine 11/28/2023 5:49 PM CDT TYPE AND SCREEN Timed 11/28/2023 5:49 PM CDT MAGNESIUM Routine 11/28/2023 5:49 PM CDT COMPREHENSIVE METABOLIC PANEL Routine 11/28/2023 5:49 PM CDT STOOL CULTURE STAT 11/28/2023 6:32 AM CDT EGFR Routine 11/27/2023 9:48 PM CDT DIFFERENTIAL AUTO Routine 11/27/2023 9:4 8 PM CDT CBC WITH AUTO DIFFERENTIAL Routine 11/27/2023 9:48 PM CDT MAGNESIUM Routine 11/27/2023 9:48 PM CDT COMPREHENSIVE METABOLIC PANEL Routine 11/27/2023 9:48 PM CDT INFECTION PREVENTION CARLOS AURIS PCR, SURVEILLANCE Routine 11/27/2023 4:06 PM CDT EGFR Timed 11/27/2023 2:41 PM CDT CRITICAL RESULT CALLBACK CHEMISTRY Timed 11/27/2023 2:41 PM CDT LIPASE Timed 11/27/2023 2:41 PM CDT COMPREHENSIVE METABOLIC PANEL Timed 11/27/2023 2:41 PM CDT ECG 12-LEAD Routine 11/27/2023 11:56 AM CDT EGFR Routine 11/27/2023 12:43 AM CDT DIFFERENTIAL AUTO Routine 11/27/2023 12: 43 AM CDT CBC WITH AUTO DIFFERENTIAL Routine 11/27/2023 12:43 AM CDT MAGNESIUM Routine 11/27/2023 12:43 AM CDT COMPREHENSIVE METABOLIC PANEL Routine 11/27/2023 12:43 AM CDT FL ERCP BILIARY DUCT IP Routine 11/26/2023 5:09 PM CDT ERCP IP Routine 11/26/2023 4:54 PM CDT Choledocholithiasi s US ENDOSCOPIC IP Routine 11/26/2023 4:54 PM CDT Choledocholithiasi s UPPER EUS 11/26/2023 4:02 PM CDT ERCP 11/26/2023 4:01 PM CDT RAD S AND I BILIARY DUCTAL SYSTEM 11/26/2023 4:01 PM CDT Choledocholithiasi s INFECTION PREVENTION CARLOS AURIS PCR, SURVEILLANCE Routine 11/25/2023 9:44 PM CDT IRON PROFILE W/ IBC Timed 11/25/2023 9 :26 PM CDT PROTIME-INR Routine 11/25/2023 9:26 PM CDT FERRITIN Timed 11/25/2023 9:26 PM CDT EGFR Timed 11/25/2023 7:09 PM CDT DIFFERENTIAL AUTO Timed 11/25/2023 7:0 9 PM CDT CBC WITH AUTO DIFFERENTIAL Timed 11/25/2023 7:09 PM CDT APTT Timed 11/25/2023 7:09 PM CDT PROTIME-INR Timed 11/25/2023 7:09 PM CDT TYPE AND SCREEN Timed 11/25/2023 7:09 PM CDT PHOSPHORUS Timed 11/25/2023 7:09 PM CDT MAGNESIUM Timed 11/25/2023 7:09 PM CDT COMPREHENSIVE METABOLIC PANEL Timed 11/25/2023 7:09 PM CDT XR TIBIA FIBULA RIGHT2 VIEWS ED 11/25/2023 3:34 PM CDT US LOWER EXTREMITY RIGHT LIMITED ED 11/25/2023 10:09 AM CDT C. DIFFICILE TESTING STAT 11/25/2023 7:18 AM CDT EGFR STAT 11/25/2023 6:47 AM CDT CBC WITHOUT DIFFERENTIAL STAT 11/25/2023 6:47 AM CDT COMPREHENSIVE METABOLIC PANEL STAT 11/25/2023 6:47 AM CDT URINALYSIS AND REFLEX TO MICROSCOPIC AND CULTURE STAT 11/24/2023 3:33 PM CDT URINALYSIS, MICROSCOPIC ONLY STAT 11/24/2023 3:[address] ABDOMEN PELVIS W CONTRAST ED 11/24/2023 2:42 PM CDT TROPONIN I HIGH-SENSITIVITY 2-HOUR Timed 11/24/2023 12:01 PM CDT HEPATITIS PANEL, ACUTE STAT 11/24/2023 12:01 PM CDT POCUS SOFT TISSUE OF THE UPPER OR LOWER EXTREMITY 11/24/2023 11:32 AM CDT TROPONIN I HIGH-SENSITIVITY SERIES (BASELINE, 2HR, 4HR, 6HR) STAT 11/24/2023 9:49 AM CDT EGFR STAT 11/24/2023 9:49 AM CDT DIFFERENTIAL AUTO STAT 11/24/2023 9:4 9 AM CDT CBC WITH AUTO DIFFERENTIAL STAT 11/24/2023 9:49 AM CDT LIPASE STAT 11/24/2023 9:49 AM CDT COMPREHENSIVE METABOLIC PANEL STAT 11/24/2023 9:49 AM CDT documented in this encounter Results * eGFR (12/01/2023 10:06 PM CDT) eGFR 60 >=60 mL/min/1. 73 m2 Comment: Interpretive Data [...] interpretive data was last reviewed 2021. Blood 12/01/2023 10:0 6 PM CDT 12/01/2023 10:38 PM CDT Oscar De La Torre MD LAB BLOOD ORDERABLES Final Result Performing Organization Address [facility] Co de Phone Number [facility] [place] [place] [address] * Type and screen (12/01/2023 10:06 PM CDT) Pathologist [facility] ABO Rh B Negative Cheri, indirect Negative [facility] Blood 12/01/2023 10:0 6 PM CDT 12/01/2023 10:34 PM CDT Narrative [facility] - 12/01/2023 11:29 PM CDT Has the patient had Daratumumab or Isatuximab in the past 6 months?->Unknown Oscar De La Torre MD LAB BLOOD BANK TEST ORDERAB LES Final Result Performing Organization Address [facility] [place] [address] * (ABNORMAL) Comprehensive metabolic panel (12/01/2023 10:06 PM CDT) Pathologist [facility] Sodium 139 135 - 145 mmol/L Potassium, pl 3.7 3.3 - 4.9 mmol/L [facility] Chloride 104 97 - 110 mmol/L [facility] CO2 26 22 - 32 mmol/L [facility] Anion gap 9 2 - 15 mmol/L [facility] BUN 7 6 - 25 mg/dL [facility] Creatinine 0.97 0.60 - 1.10 mg/dL [facility] Glucose 93 70 - 199 mg/dL [facility] Comment: Interpretive Data Fasting glucose >/= 126 [...] classification and Diagnosis of Diabetes Diabetes Care 2021; 46: [id number]. Current interpretive data was last revised 2022. Calcium 9.2 8.5 - 10.3 mg/dL [facility] Bilirubin, total 0.6 0.1 - 1.2 mg/dL [facility] Protein, pl 5.8(L) 6.5 - 8.5 g/dL [facility] Albumin 3.2(L) 3.5 - 5.0 g/dL [facility] Alk phos 121 40 - 130 Units/L [facility] ALT 195(H) 7 - 45 Units/L [facility] AST 88(H) 10 - 45 Units/L [facility] Blood 12/01/2023 10:0 6 PM CDT 12/01/2023 10:38 PM CDT us Oscar De La Torre MD LAB BLOOD ORDERABLES Final Result [facility] [place] [address] * (ABNORMAL) CBC without differential (12/01/2023 10:06 PM CDT) [facility] WBC 4.0 3.8 - 9.9 K/cumm Hgb 8.6(L) 11.9 - 15.5 g/dL [facility] Hct 27.9(L) 35.6 - 45.5 % [facility] Plt 216 150 - 400 K/cumm [facility] MPV 12.6(H) 9.1 - 12.3 fL [facility] RBC 3.07(L) 3.90 - 5.20 M/cumm [facility] MCV 90.9 81.3 - 96.4 fL [facility] MCH 28.0 27.1 - 33.3 pg [facility] MCHC 30.8(L) 32.3 - 35.7 g/dL [facility] RDW CV 21.3(H) 11.1 - 14.9 % [facility] RDW SD 69.9(H) 35.7 - 48.1 fL [facility] NRBC abs 0.00 0.00 - 0.01 K/cumm [facility] Blood 12/01/2023 10:0 6 PM CDT 12/01/2023 10:38 PM CDT us Oscar De La Torre MD LAB BLOOD ORDERABLES Final Result [facility] [place] [address] * eGFR (11/29/2023 9:59 PM CDT) eGFR 68 >=60 mL/min/1. 73 m2 Comment: Interpretive Data [...] interpretive data was last reviewed 2021. Blood 11/29/2023 9:59 PM CDT 11/29/2023 10:34 PM CDT Oscar De La Torre MD LAB BLOOD ORDERABLES Final Result [facility] [place] [address] * (ABNORMAL) Differential, auto (11/29/2023 9:59 PM CDT) Neutrophil abs 2.7 1.5 - 6.5 K/cumm Imm gran abs 0.0 0.0 - 0.1 K/cumm [facility] Lymphocyte abs 0.7(L) 0.8 - 3.3 K/cumm [facility] Monocyte abs 0.6 0.2 - 0.8 K/cumm [facility] Eosinophil abs 0.1 0.0 - 0.5 K/cumm [facility] Basophil abs 0.0 0.0 - 0.1 K/cumm [facility] Neutrophil pct 64.1 % [facility] Comment: Interpretive Data Percent cell count reference ranges are not reported, since discordance with absolute values may lead to misinterpretation of CBC data. Current Interpretive Data was last revised on 2017. Imm gran pct 0.2 % [facility] Comment: Interpretive Data Percent cell count reference ranges are not reported, since discordance with absolute values may lead to misinterpretation of CBC data. Current Interpretive Data was last revised on 2017. Lymphocyte pct 17.6 % [facility] Comment: Interpretive Data Percent cell count reference ranges are not reported, since discordance with absolute values may lead to misinterpretation of CBC data. Current Interpretive Data was last revised on 2017. Monocyte pct 15.4 % [facility] Comment: Interpretive Data Percent cell count reference ranges are not reported, since discordance with absolute values may lead to misinterpretation of CBC data. Current Interpretive Data was last revised on 2017. Eosinophil pct 1.7 % [facility] Comment: Interpretive Data Percent cell count reference ranges are not reported, since discordance with absolute values may lead to misinterpretation of CBC data. Current Interpretive Data was last revised on 2017. Basophil pct 1.0 % [facility] Comment: Interpretive Data Percent cell count reference ranges are not reported, since discordance with absolute values may lead to misinterpretation of CBC data. Current Interpretive Data was last revised on 2017. Blood 11/29/2023 9:59 PM CDT 11/29/2023 10:35 PM CDT us Oscar De La Torre MD LAB BLOOD ORDERABLES Final Result [facility] [place] [address] * (ABNORMAL) Comprehensive metabolic panel (11/29/2023 9:59 PM CDT) Sodium 136 135 - 145 mmol/L Potassium, pl 3.6 3.3 - 4.9 mmol/L [facility] Chloride 103 97 - 110 mmol/L [facility] CO2 24 22 - 32 mmol/L [facility] Anion gap 9 2 - 15 mmol/L [facility] BUN 9 6 - 25 mg/dL [facility] Creatinine 0.88 0.60 - 1.10 mg/dL [facility] Glucose 88 70 - 199 mg/dL [facility] Comment: Interpretive Data Fasting glucose >/= 126 [...] interpretive data was last revised 2022. Calcium 8.6 8.5 - 10.3 mg/dL [facility] Bilirubin, total 0.7 0.1 - 1.2 mg/dL [facility] Protein, pl 5.8(L) 6.5 - 8.5 g/dL [facility] Albumin 3.1(L) 3.5 - 5.0 g/dL [facility] Alk phos 123 40 - 130 Units/L [facility] ALT 263(H) 7 - 45 Units/L [facility] AST 104(H) 10 - 45 Units/L [facility] Blood 11/29/2023 9:59 PM CDT 11/29/2023 10:34 PM CDT us Oscar De La Torre MD LAB BLOOD ORDERABLES Final Result [facility] [place] [address] * (ABNORMAL) CBC with auto differential (11/29/2023 9:59 PM CDT) WBC 4.2 3.8 - 9.9 K/cumm Hgb 8.5(L) 11.9 - 15.5 g/dL [facility] Hct 26.3(L) 35.6 - 45.5 % [facility] Plt 200 150 - 400 K/cumm [facility] MPV 12.3 9.1 - 12.3 fL [facility] RBC 2.96(L) 3.90 - 5.20 M/cumm [facility] MCV 88.9 81.3 - 96.4 fL [facility] MCH 28.7 27.1 - 33.3 pg [facility] MCHC 32.3 32.3 - 35.7 g/dL [facility] RDW CV 21.3(H) 11.1 - 14.9 % [facility] RDW SD 68.0(H) 35.7 - 48.1 fL [facility] NRBC abs 0.00 0.00 - 0.01 K/cumm [facility] Blood 11/29/2023 9:59 PM CDT 11/29/2023 10:35 PM CDT us Oscar De La Torre MD LAB BLOOD ORDERABLES Final Result Performing Organization Address [facility] Co de Phone Number VALENTE RAMIREZ [facility] Department [place] [place] [address] * (ABNORMAL) eGFR (11/28/2023 5:49 PM CDT) eGFR 48(L) >=60 mL/min/1. 73 m2 Comment: Interpretive Data [...] interpretive data was last reviewed 2021. Blood 11/28/2023 5:49 PM CDT 11/28/2023 6:04 PM CDT us Jose Roberto Hernandez MD LAB BLOOD ORDERABLES Final R esult Performing Organization Address [facility] Co de Phone Number VALENTE RAMIREZ Monica [facility] Department [place] [place] [address] * (ABNORMAL) Differential, auto (11/28/2023 5:49 PM CDT) Neutrophil abs 2.6 1.5 - 6.5 K/cumm Imm gran abs 0.0 0.0 - 0.1 K/cumm [facility] Lymphocyte abs 0.6(L) 0.8 - 3.3 K/cumm [facility] Monocyte abs 0.4 0.2 - 0.8 K/cumm [facility] Eosinophil abs 0.0 0.0 - 0.5 K/cumm [facility] Basophil abs 0.0 0.0 - 0.1 K/cumm [facility] Neutrophil pct 70.3 % [facility] Comment: Interpretive Data Percent cell count reference ranges are not reported, since discordance with absolute values may lead to misinterpretation of CBC data. Current Interpretive Data was last revised on 2017. Imm gran pct 0.3 % [facility] Comment: Interpretive Data Percent cell count reference ranges are not reported, since discordance with absolute values may lead to misinterpretation of CBC data. Current Interpretive Data was last revised on 2017. Lymphocyte pct 15.8 % [facility] Comment: Interpretive Data Percent cell count reference ranges are not reported, since discordance with absolute values may lead to misinterpretation of CBC data. Current Interpretive Data was last revised on 2017. Monocyte pct 11.7 % [facility] Comment: Interpretive Data Percent cell count reference ranges are not reported, since discordance with absolute values may lead to misinterpretation of CBC data. Current Interpretive Data was last revised on 2017. Eosinophil pct 1.1 % [facility] Comment: Interpretive Data Percent cell count reference ranges are not reported, since discordance with absolute values may lead to misinterpretation of CBC data. Current Interpretive Data was last revised on 2017. Basophil pct 0.8 % [facility] Comment: Interpretive Data Percent cell count reference ranges are not reported, since discordance with absolute values may lead to misinterpretation of CBC data. Current Interpretive Data was last revised on 2017. Blood 11/28/2023 5:49 PM CDT 11/28/2023 6:04 PM CDT us Jose Roberto Hernandez MD LAB BLOOD ORDERABLES Final R esult [facility] Department [place] [address] * Magnesium (11/28/2023 5:49 PM CDT) Pathologist [facility] Magnesium 2.1 1.4 - 2.5 mg/dL Blood 11/28/2023 5:49 PM CDT 11/28/2023 6:04 PM CDT Jose Roberto Hernandez MD LAB BLOOD ORDERABLES Final R esult Performing Organization Address [facility] Co de Phone Number [facility] [place] [address] * (ABNORMAL) Comprehensive metabolic panel (11/28/2023 5:49 PM CDT) Pathologist [facility] Sodium 138 135 - 145 mmol/L Potassium, pl 3.9 3.3 - 4.9 mmol/L [facility] Chloride 104 97 - 110 mmol/L [facility] CO2 23 22 - 32 mmol/L [facility] Anion gap 11 2 - 15 mmol/L [facility] BUN 18 6 - 25 mg/dL [facility] Creatinine 1.18(H) 0.60 - 1.10 mg/dL [facility] Glucose 87 70 - 199 mg/dL [facility] Comment: Interpretive Data Fasting glucose >/= 126 [...] classification and Diagnosis of Diabetes Diabetes Care 2021; 46: S19-S40. Current interpretive data was last revised 2022. Calcium 8.8 8.5 - 10.3 mg/dL [facility] Bilirubin, total 0.8 0.1 - 1.2 mg/dL [facility] Protein, pl 5.9(L) 6.5 - 8.5 g/dL [facility] Albumin 3.4(L) 3.5 - 5.0 g/dL [facility] Alk phos 133(H) 40 - 130 Units/L [facility] ALT 338(H) 7 - 45 Units/L [facility] AST 114(H) 10 - 45 Units/L [facility] Blood 11/28/2023 5:49 PM CDT 11/28/2023 6:04 PM CDT us Jose Roberto Hernandez MD LAB BLOOD ORDERABLES Final R esult [facility] [place] [address] * (ABNORMAL) CBC with auto differential (11/28/2023 5:49 PM CDT) WBC 3.7(L) 3.8 - 9.9 K/cumm Hgb 8.0(L) 11.9 - 15.5 g/dL [facility] Hct 25.5(L) 35.6 - 45.5 % [facility] Plt 208 150 - 400 K/cumm [facility] MPV 11.6 9.1 - 12.3 fL [facility] RBC 2.85(L) 3.90 - 5.20 M/cumm [facility] MCV 89.5 81.3 - 96.4 fL [facility] MCH 28.1 27.1 - 33.3 pg [facility] MCHC 31.4(L) 32.3 - 35.7 g/dL [facility] RDW CV 20.9(H) 11.1 - 14.9 % [facility] RDW SD 67.4(H) 35.7 - 48.1 fL [facility] NRBC abs 0.00 0.00 - 0.01 K/cumm [facility] Blood 11/28/2023 5:49 PM CDT 11/28/2023 6:04 PM CDT us Jose Roberto Hernandez MD LAB BLOOD ORDERABLES Final R esult Performing Organization Address City/[facility]/ZIP Co de Phone Number [facility] Department [place] [address] * Type and screen (11/28/2023 5:49 PM CDT) ABO Rh B Negative Cheri, indirect Negative [facility] Blood 11/28/2023 5:49 PM CDT 11/28/2023 6:02 PM CDT Narrative [facility] - 11/28/2023 7:02 PM CDT Has the patient had Daratumumab or Isatuximab in the past 6 months?->Unknown Duong Choi MD LAB BLOOD BANK TEST ORDE RABLES Final Result Performing Organization Address [facility] Co de Phone Number [facility] Department [place] [address] * Stool culture Stool Rectum (11/28/2023 6:32 AM CDT) Direct Specimen Exam Shiga Toxin Testing: Antigen detection assay for Shiga-toxin NEGATIVE for Shiga Toxin 1 and Shiga Toxin 2. Report Final Report: No growth of enteric bacterial pathogens [facility] Stool (Rectum) 11/28/2023 6: 32 AM CDT 11/28/2023 7:45 AM CDT Narrative [facility] - 12/02/2023 8:52 AM CDT Testing performed by [facility] ([phone]). Routine stool cultures include procedures to detect Salmonella, Shigella, Edwardsiella, Aeromonas, Pleisiomonas, Campylobacter, Yersinia, E. coli O157, and Shiga-like toxins. ?? Vibrio is cultured only upon special request. ??If Vibrio is suspected, please call the laboratory at [phone]. Interpretive data was last updated October 21, 2016. us Jose Roberto Hernandez MD LAB MICROBIOLOGY - GENERAL O RDERABLES Final Result Performing Organization Address [facility] Co de Phone Number [facility] [place] [address] * (ABNORMAL) eGFR (11/27/2023 9:48 PM CDT) eGFR 45(L) >=60 mL/min/1. 73 m2 Comment: Interpretive Data [...] interpretive data was last reviewed 2021. Blood 11/27/2023 9:48 PM CDT 11/27/2023 10:37 PM CDT us Jose Roberto Hernandez MD LAB BLOOD ORDERABLES Final R esult Performing Organization Address [facility] Co de Phone Number VALENTE Anderson [facility] Department [place] [address] * Differential, auto (11/27/2023 9:48 PM CDT) Neutrophil abs 2.4 1.5 - 6.5 K/cumm Imm gran abs 0.0 0.0 - 0.1 K/cumm [facility] Lymphocyte abs 0.9 0.8 - 3.3 K/cumm [facility] Monocyte abs 0.5 0.2 - 0.8 K/cumm [facility] Eosinophil abs 0.0 0.0 - 0.5 K/cumm [facility] Basophil abs 0.0 0.0 - 0.1 K/cumm [facility] Neutrophil pct 63.0 % [facility] Comment: Interpretive Data Percent cell count reference ranges are not reported, since discordance with absolute values may lead to misinterpretation of CBC data. Current Interpretive Data was last revised on 2017. Imm gran pct 0.3 % [facility] Comment: Interpretive Data Percent cell count reference ranges are not reported, since discordance with absolute values may lead to misinterpretation of CBC data. Current Interpretive Data was last revised on 2017. Lymphocyte pct 22.4 % [facility] Comment: Interpretive Data Percent cell count reference ranges are not reported, since discordance with absolute values may lead to misinterpretation of CBC data. Current Interpretive Data was last revised on 2017. Monocyte pct 12.4 % [facility] Comment: Interpretive Data Percent cell count reference ranges are not reported, since discordance with absolute values may lead to misinterpretation of CBC data. Current Interpretive Data was last revised on 2017. Eosinophil pct 1.1 % [facility] Comment: Interpretive Data Percent cell count reference ranges are not reported, since discordance with absolute values may lead to misinterpretation of CBC data. Current Interpretive Data was last revised on 2017. Basophil pct 0.8 % [facility] Comment: Interpretive Data Percent cell count reference ranges are not reported, since discordance with absolute values may lead to misinterpretation of CBC data. Current Interpretive Data was last revised on 2017. Blood 11/27/2023 9:48 PM CDT 11/27/2023 10:36 PM CDT us Jose Roberto Hernandez MD LAB BLOOD ORDERABLES Final R esult Performing Organization Address City/[facility]/ZIP Co de Phone Number [facility] Department [place] [address] * Magnesium (11/27/2023 9:48 PM CDT) Pathologist [facility] Magnesium 1.9 1.4 - 2.5 mg/dL Blood 11/27/2023 9:48 PM CDT 11/27/2023 10:37 PM CDT us Jose Roberto Hernandez MD LAB BLOOD ORDERABLES Final R esult Performing Organization Address [facility] de Phone Number [facility] Department [place] [address] * (ABNORMAL) Comprehensive metabolic panel (11/27/2023 9:48 PM CDT) [facility] Sodium 137 135 - 145 mmol/L Potassium, pl 4.0 3.3 - 4.9 mmol/L [facility] Chloride 103 97 - 110 mmol/L [facility] CO2 23 22 - 32 mmol/L [facility] Anion gap 11 2 - 15 mmol/L [facility] BUN 20 6 - 25 mg/dL [facility] Creatinine 1.23(H) 0.60 - 1.10 mg/dL [facility] Glucose 93 70 - 199 mg/dL [facility] Comment: Interpretive Data Fasting glucose >/= 126 [...] classification and Diagnosis of Diabetes Diabetes Care 2021; 46: S19-S40. Current interpretive data was last revised 2022. Calcium 9.3 8.5 - 10.3 mg/dL [facility] Bilirubin, total 0.9 0.1 - 1.2 mg/dL [facility] Protein, pl 6.2(L) 6.5 - 8.5 g/dL [facility] Albumin 3.5 3.5 - 5.0 g/dL [facility] Alk phos 143(H) 40 - 130 Units/L [facility] ALT 417(H) 7 - 45 Units/L [facility] AST 129(H) 10 - 45 Units/L [facility] Blood 11/27/2023 9:48 PM CDT 11/27/2023 10:37 PM CDT us Jose Roberto Hernandez MD LAB BLOOD ORDERABLES Final R esult [facility] [place] [address] * (ABNORMAL) CBC with auto differential (11/27/2023 9:48 PM CDT) WBC 3.8 3.8 - 9.9 K/cumm Hgb 8.7(L) 11.9 - 15.5 g/dL [facility] Hct 26.9(L) 35.6 - 45.5 % [facility] Plt 211 150 - 400 K/cumm [facility] MPV 12.3 9.1 - 12.3 fL [facility] RBC 3.04(L) 3.90 - 5.20 M/cumm [facility] MCV 88.5 81.3 - 96.4 fL [facility] MCH 28.6 27.1 - 33.3 pg [facility] MCHC 32.3 32.3 - 35.7 g/dL [facility] RDW CV 20.6(H) 11.1 - 14.9 % [facility] RDW SD 65.7(H) 35.7 - 48.1 fL [facility] NRBC abs 0.00 0.00 - 0.01 K/cumm [facility] Blood 11/27/2023 9:48 PM CDT 11/27/2023 10:36 PM CDT Jose Roberto Hernandez MD LAB BLOOD ORDERABLES Final R esult [facility] [place] [address] * Infection Prevention Carlos auris PCR, surveillance Axilla/Groin (11/27/2023 4:06 PM CDT) Carlos auris DNA Not Detected Not Detected [facility] Comment: Interpretive Data Testing performed by [facility] Infectious Disease Laboratory using the [employer] MDX Carlos auris assay. ??This assay detects DNA from Carlos auris using Real-Time PCR. ??This assay is laboratory developed and is not cleared by the [facility] Food and Drug Administration. ??The performance characteristics have been verified by the [facility] Infectious Disease [facility]. Interpretive data was last reviewed on 10/08/2023 Axilla/Groin 11/27/2023 4:06 PM CDT 11/27/2023 4:20 PM CDT us Diony Lawson MD LAB MICROBIOLOGY - GENERAL OR DERABLES Final Result Performing Organization Address [facility] Co de Phone Number [facility] [place] [address] [facility] * Critical Result Callback Chemistry (11/27/2023 2:41 PM CDT) Date Notified [id number] Time Notified 1607 VALENTE RAMIREZ TestName Celeste HALL Called/Read Back Aysha RAMIREZ Credentials PHILIP RAMIREZ Called By glenna HALL Blood 11/27/2023 2:41 PM CDT 11/27/2023 2:55 PM CDT us Duong Choi MD LAB BLOOD ORDERABLES Fin al Result Performing Organization Address [facility] Co de Phone Number VALENTE RAMIREZ [facility] [place] [address] * (ABNORMAL) eGFR (11/27/2023 2:41 PM CDT) eGFR 45(L) >=60 mL/min/1. 73 m2 Comment: Interpretive Data [...] of Race in Diagnosing Kidney Disease, JASN 202). The CKD-EPI equation should not be used for patients with unstable renal function and has not been validated in children and those over 70. Current interpretive data was last reviewed 2021. Blood 11/27/2023 2:41 PM CDT 11/27/2023 2:55 PM CDT us Duong Choi MD LAB BLOOD ORDERABLES Fin al Result Performing Organization Address [facility] Co de Phone Number VALENTE RAMIREZ Monica [facility] Department [place] [address] * (ABNORMAL) Comprehensive metabolic panel (11/27/2023 2:41 PM CDT) Sodium 136 135 - 145 mmol/L Potassium, pl 4.3 3.3 - 4.9 mmol/L [facility] Comment:Hemolyzed; Potassium value may be falsely elevated by as much as 0.6-1.0 mmol/L. Suggest redraw and reanalysis. Chloride 104 97 - 110 mmol/L [facility] CO2 22 22 - 32 mmol/L [facility] Anion gap 10 2 - 15 mmol/L [facility] BUN 21 6 - 25 mg/dL [facility] Creatinine 1.23(H) 0.60 - 1.10 mg/dL [facility] Glucose 125 70 - 199 mg/dL [facility] Comment: Interpretive Data Fasting glucose >/= 126 [...] classification and Diagnosis of Diabetes Diabetes Care 2021; 46: S19-S40. Current interpretive data was last revised 2022. Calcium 9.3 8.5 - 10.3 mg/dL [facility] Bilirubin, total 0.9 0.1 - 1.2 mg/dL [facility] Protein, pl 6.2(L) 6.5 - 8.5 g/dL [facility] Albumin 3.3(L) 3.5 - 5.0 g/dL [facility] Alk phos 136(H) 40 - 130 Units/L [facility] ALT 424(H) 7 - 45 Units/L [facility] AST 142(H) 10 - 45 Units/L [facility] Comment:Hemolyzed; result ma y be falsely elevated Blood 11/27/2023 2:41 PM CDT 11/27/2023 2:55 PM CDT Duong Choi MD LAB BLOOD ORDERABLES Fin al Result Performing Organization Address City/[facility] Co de Phone Number VALENTE [facility] Department [place] [address] * (ABNORMAL) Lipase (11/27/2023 2:41 PM CDT) Pathologist [facility] Lipase 1,154(C) 10 - 99 Units/L Blood 11/27/2023 2:41 PM CDT 11/27/2023 2:55 PM CDT us Duong Choi MD LAB BLOOD ORDERABLES Fin al Result Performing Organization Address [facility] Co de Phone Number VALENTE [facility] [place] [address] * ECG 12 lead (11/27/2023 11:56 AM CDT) Ventricular Rate EKG/Min 57 BPM [facility] Atrial Rate 57 BPM [facility] IL-Interval (MSEC) 150 ms [facility] QRS-Interval (MSEC) 110 ms [facility] QT-Interval (MSEC) 448 ms [facility] QTc 436 ms [facility] P [place] 84 degrees [facility] R [place] -21 degrees [facility] T [place] 131 degrees [facility] Diagnosis Sinus bradycardia Left ventricular hypertrophy with repolarization abnormality Abnormal ECG When compared with ECG of 14-MAR-2023 09:38, Sinus rhythm has replaced Atrial fibrillation Vent. rate has decreased BY ??[address] no longer depressed in Inferior leads T wave inversion no longer evident in Inferior leads T wave inversion less evident in Lateral leads Confirmed by DIONY GROSS M.D ([id number]) on 11/28/2023 2:45:50 PM [facility] 11/27/2023 11:5 6 AM CDT 11/28/2023 2:45 PM CDT us Duong Choi MD ECG ORDERABLES Final Re sult Performing Organization Address [facility] Co de Phone Number [facility] * (ABNORMAL) eGFR (11/27/2023 12:43 AM CDT) eGFR 47(L) >=60 mL/min/1. 73 m2 Comment: Interpretive Data [...] interpretive data was last reviewed 2021. Blood 11/27/2023 12:4 3 AM CDT 11/27/2023 2:07 AM CDT us Jose Roberto Hernandez MD LAB BLOOD ORDERABLES Final R esult [facility] [place] [address] * Differential, auto (11/27/2023 12:43 AM CDT) Neutrophil abs 3.6 1.5 - 6.5 K/cumm Imm gran abs 0.0 0.0 - 0.1 K/cumm [facility] Lymphocyte abs 0.9 0.8 - 3.3 K/cumm [facility] Monocyte abs 0.7 0.2 - 0.8 K/cumm [facility] Eosinophil abs 0.1 0.0 - 0.5 K/cumm [facility] Basophil abs 0.0 0.0 - 0.1 K/cumm [facility] Neutrophil pct 67.9 % [facility] Comment: Interpretive Data Percent cell count reference ranges are not reported, since discordance with absolute values may lead to misinterpretation of CBC data. Current Interpretive Data was last revised on 2017. Imm gran pct 0.6 % [facility] Comment: Interpretive Data Percent cell count reference ranges are not reported, since discordance with absolute values may lead to misinterpretation of CBC data. Current Interpretive Data was last revised on 2017. Lymphocyte pct 17.4 % [facility] Comment: Interpretive Data Percent cell count reference ranges are not reported, since discordance with absolute values may lead to misinterpretation of CBC data. Current Interpretive Data was last revised on 2017. Monocyte pct 12.6 % [facility] Comment: Interpretive Data Percent cell count reference ranges are not reported, since discordance with absolute values may lead to misinterpretation of CBC data. Current Interpretive Data was last revised on 2017. Eosinophil pct 1.1 % [facility] Comment: Interpretive Data Percent cell count reference ranges are not reported, since discordance with absolute values may lead to misinterpretation of CBC data. Current Interpretive Data was last revised on 2017. Basophil pct 0.4 % [facility] Comment: Interpretive Data Percent cell count reference ranges are not reported, since discordance with absolute values may lead to misinterpretation of CBC data. Current Interpretive Data was last revised on 2017. Blood 11/27/2023 12:4 3 AM CDT 11/27/2023 2:08 AM CDT us Jose Roberto Hernandez MD LAB BLOOD ORDERABLES Final R esult [facility] [place] [address] * Magnesium (11/27/2023 12:43 AM CDT) Magnesium 1.8 1.4 - 2.5 mg/dL Blood 11/27/2023 12:4 3 AM CDT 11/27/2023 2:07 AM CDT us Jose Roberto Hernandez MD LAB BLOOD ORDERABLES Final R esult [facility] [place] [address] * (ABNORMAL) Comprehensive metabolic panel (11/27/2023 12:43 AM CDT) Pathologist [facility] Sodium 136 135 - 145 mmol/L Potassium, pl 3.9 3.3 - 4.9 mmol/L [facility] Chloride 101 97 - 110 mmol/L [facility] CO2 22 22 - 32 mmol/L [facility] Anion gap 13 2 - 15 mmol/L [facility] BUN 16 6 - 25 mg/dL [facility] Creatinine 1.19(H) 0.60 - 1.10 mg/dL [facility] Glucose 92 70 - 199 mg/dL [facility] Comment: Interpretive Data Fasting glucose >/= 126 [...] interpretive data was last revised 2022. Calcium 9.6 8.5 - 10.3 mg/dL [facility] Bilirubin, total 0.9 0.1 - 1.2 mg/dL [facility] Protein, pl 6.4(L) 6.5 - 8.5 g/dL [facility] Albumin 3.7 3.5 - 5.0 g/dL [facility] Alk phos 155(H) 40 - 130 Units/L [facility] ALT 536(H) 7 - 45 Units/L [facility] AST 184(H) 10 - 45 Units/L [facility] Blood 11/27/2023 12:4 3 AM CDT 11/27/2023 2:07 AM CDT us Jose Roberto Hernandez MD LAB BLOOD ORDERABLES Final R esult [facility] Department [place] [employer] [place] [address] * (ABNORMAL) CBC with auto differential (11/27/2023 12:43 AM CDT) [facility] WBC 5.2 3.8 - 9.9 K/cumm Hgb 9.3(L) 11.9 - 15.5 g/dL [facility] Hct 28.4(L) 35.6 - 45.5 % [facility] Plt 220 150 - 400 K/cumm [facility] MPV 12.1 9.1 - 12.3 fL [facility] RBC 3.26(L) 3.90 - 5.20 M/cumm [facility] MCV 87.1 81.3 - 96.4 fL [facility] MCH 28.5 27.1 - 33.3 pg [facility] MCHC 32.7 32.3 - 35.7 g/dL [facility] RDW CV 20.2(H) 11.1 - 14.9 % [facility] RDW SD 63.6(H) 35.7 - 48.1 fL [facility] NRBC abs 0.00 0.00 - 0.01 K/cumm [facility] Blood 11/27/2023 12:4 3 AM CDT 11/27/2023 2:08 AM CDT us Jose Roberto Hernandez MD LAB BLOOD ORDERABLES Final R esult [facility] [place] [address] * FL ERCP Biliary Duct (11/26/2023 5:09 PM CDT) Narrative [facility] - 11/26/2023 5:09 PM CDT The images from this study are not interpreted by Radiology. ??Please refer to the physician's procedure / OR operative note. Wilfred Howard MD [facility] [place] FLUOROSCOPY PROCEDURES Final Result [id number] * Upper EUS (11/26/2023 4:02 PM CDT) Anatomical Region Laterality Modality Other Narrative Procedure Note Heydi Fenton MD - 11/26/2023 4:02 PM CDT [facility] Patient Name: Tiera Lobato Procedure Date: 11/26/2023 4:02 PM Date of : 1945 Admit Type: Inpatient Age: 78 Gender: Female Attending MD: Heydi Fenton M.D. Room: [facility] ENDOSCOPY ROOM 2 Note Status: Finalized Procedure: Upper EUS Indications: Obstruction of bile duct on CT with stone, Elevated liver enzymes. AST/ALT elevation, normalbilirubin. Referring MD: Cristian Brantley M.D. Providers: Heydi Fenton M.D., Marco Antonio Gusman M.D. Medicines: Monitored Anesthesia Care Complications: No immediate complications. Estimated Blood Loss: Estimated blood loss: none. Procedure: Pre-Anesthesia Assessment: - Prior to the procedure, a History and Physicalwas performed, and patient medications, allergies and sensitivities were reviewed. The patient'stolerance of previous anesthesia was reviewed. - The risks and benefits of the procedure and the sedation options and risks were discussed with the patient. All questions were answered and informed consent was obtained. - Immediately prior to administration ofmedications, the patient was re-assessed for adequacy to receive sedatives. The risks, benefits and alternatives were discussed and informed consent was obtained.The Olympuscurved linear array therapeutic [id number] was introduced through the mouth, and advanced tothe duodenum for ultrasound examination from thestomach and duodenum The upper EUS was accomplished without difficulty. The patient tolerated the procedurewell. Findings: ENDOSONOGRAPHIC FINDING: : The stomach, duodenum and adjacent structures were visualized endosonographically. One stone was visualized endosonographically in the common bile duct. The stone measured 5 mm in greatest dimension. The stone was round.It was hyperechoic and characterized by shadowing. There was dilation in the main bile duct which measured up to 14mm. There was no sign of significant endosonographic abnormality in the pancreatic head, genu of the pancreas, pancreatic body and pancreatic tail. The pancreas was well visualized, the pancreatic duct was well visualized from ampulla to tail, the pancreatic duct was thin in caliber, the pancreatic duct was regular in contour. There was no sign of significant endosonographic abnormality in theleft lobe of the liver. No focal pathology was identified. No lymphadenopathy seen. There was no sign of significant endosonographic abnormalityinvolving the celiac trunk. Impression: - One stone was visualized endosonographically inthe common bile duct. - There was dilation in the entire main bile duct which measured up to 12 mm. - There was no sign of significant pathology in the pancreatic head, genu of the pancreas, pancreaticbody and pancreatic tail. - There was no evidence of significant pathology in the left lobe of the liver. - The celiac trunk was endosonographicallynormal. - No specimens collected. Recommendation: - Perform ERCP today as scheduled. Please refer to same day ERCP report for findings and additional recommendations. Attending Participation: I was present and participated during the entire procedure, including non-martinez portions. Electronically signed by Hedyi Fenton MD Heydi Fenton M.D. 11/26/2023 5:16:47 PM . Number of Addenda: 0 Note Initiated On: 11/26/2023 4:02 PM Heydi Fenton MD ENDOSCOPY PROCEDURES Final Result * ERCP (11/26/2023 4:01 PM CDT) Anatomical Region Laterality Modality Other Narrative Procedure Note Heydi Fenton MD - 11/26/2023 4:01 PM CDT [facility] Patient Name: Tiera Lobato Procedure Date: 11/26/2023 4:01 PM Date of : 1945 Admit Type: Inpatient Age: 78 Gender: Female Attending MD: Heydi Fenton M.D. Room: [facility] ENDOSCOPY ROOM 2 Note Status: Finalized Procedure: ERCP Indications: Bile duct stone seen on EUS and on CTAP, normal bilirubin Referring MD: Duong Choi, Cristian Ling M.D. Providers: Heydi Fenton M.D., Marco Antonio Gusman M.D. Medicines: Monitored Anesthesia Care, Indomethacin 100 mg [place] Complications: No immediate complications. Estimated Blood Loss: Estimated blood loss: none. Procedure: Pre-Anesthesia Assessment: - Prior to the procedure, a History and Physicalwas performed, and patient medications, allergies and sensitivities were reviewed. The patient'stolerance of previous anesthesia was reviewed. - The risks and benefits of the procedure and the sedation options and risks were discussed with the patient. All questions were answered and informed consent was obtained. - Immediately prior to administration ofmedications, the patient was re-assessed for adequacy to receive sedatives. The benefits, risks, and alternatives to theprocedure and sedation were discussed and informed consentwas obtained. The [id number] Duodenoscope wasintroduced through the mouth, and used to inject contrast into and used to inject contrast into the bile duct. The ERCP was accomplished without difficulty. Thepatient tolerated the procedure well. Findings: A scout leaser film of the abdomen was obtained. Surgical clips, consistent with a previous cholecystectomy, were seen in the area of the right upper quadrant of the abdomen. The esophagus was successfullyintubated under direct vision without detailed examination of the pharynx,larynx, and associated structures, and upper GI tract. The upper GI tract was grossly normal. The major papilla was adjacent to two diverticula. A 0.025 inch x 450 cm angled Visiglide wire was passed into the biliary tree. The short-nosed traction sphincterotome was passed over the guidewire and the bile duct was then deeply cannulated. Contrast was injected. I personally interpreted the bile duct images. There wasbrisk flow of contrast through the ducts. Image quality was excellent. Contrast extended to the hepatic ducts. Opacification of the mainbile duct was successful. The middle third of the main bile duct contained one stone. The main bile duct was diffusely dilated, acquired. The largest diameter was 12 mm. A 6 mm biliary sphincterotomy was madewith a traction (standard) sphincterotome using ERBE electrocautery. There was self limited oozing from the sphincterotomy which did not require treatment. The biliary tree was swept with an 11.5 mm balloonstarting at the bifurcation. Sludge and possibel stone debris was swept fromthe duct. One 10 mm by 4 cm covered metal stent was placed into thecommon bile duct gvien some oozing at sphincterotomy and need for anticoaulation. Bile flowed through the stent. The stent was in good position. The endoscope was withdrawn from the patient. Impression: - The major papilla was adjacent to adiverticulum. - Cholangiogram with dilated bile duct and filling defect suspicious for choledocholithiasis - A biliary sphincterotomy was performed. Thebiliary tree was swept and sludge was found. - Balloon-occlusion cholangiogram after severalsweeps of biliary tree no longer revealed a fillingdefect. - One covered metal stent was placed into thecommon bile duct due to mild oozing at sphincterotomystent and to allow spontaneous passage of any stone fragments or microlithiasis. Recommendation: - [facility]. - Observe patient's clinical course followingtoday's ERCP with therapeutic intervention. - Watch for pancreatitis, bleeding, perforation,and cholangitis. - NPO for four hours. Clear liquid diet today.Advance diet as tolerated tomorrow. - Avoid aspirin and nonsteroidal anti-inflammatory medicines for 10 days. ASA for secondary cardiac prophylaxis OK to continue. - Restart Eliquis (apixaban) in two days. - Additional recommendations per inpatient consult team. -- Repeat ERCP in 6-8 weeks for stents removal. - In the unusual situation that you developabdominal, bleeding or other significant problems in the days following this procedure please call [phone]. After hours and evenings please call [phone] speak to the GI fellow women's health care nurse practitioner. Please tell thefellow that Dr. Fentondid your procedure and that you were instructed to have the fellow call me or the physician covering for me to discuss the managementof your condition. If you have an urgent problem,please go to the nearest emergency room and have the ER doctor call my office during the day or the GIfellow after hours and weekends to arrange admission or transfer to our facility. Please bring this report with you if you go to the emergency room. Attending Participation: I was present and participated during the entire procedure, including non-martinez portions. Electronically signed by Heydi Fenton MD Heydi Fenton M.D. 11/26/2023 5:22:09 PM . Number of Addenda: 0 Note Initiated On: 11/26/2023 4:01 PM Heydi Fenton MD ENDOSCOPY PROCEDURES Final Result * Infection Prevention Carlos auris PCR, surveillance Axilla/Groin (11/25/2023 9:44 PM CDT) Carlos auris DNA Not Detected Not Detected [facility] Comment: Interpretive Data Testing performed by [facility] Molecular Infectious Disease [facility] using the Diasorin Liaison MDX Carlos auris assay. ??This assay detects DNA from Carlos auris using Real-Time PCR. ??This assay is laboratory developed and is not cleared by the [place] Food and Drug Administration. ??The performance characteristics have been verified by the [facility] Infectious Disease [facility]. Interpretive data was last reviewed on 10/08/2023 Axilla/Groin 11/25/2023 9:44 PM CDT 11/25/2023 10:29 PM CDT us Diony Lawson MD LAB MICROBIOLOGY - GENERAL OR DERABLES Final Result [facility] [place] [address] [facility] * (ABNORMAL) Ferritin (11/25/2023 9:26 PM CDT) Ferritin 1,715(H) 13 - 150 ng/mL Blood 11/25/2023 9:26 PM CDT 11/25/2023 9:39 PM CDT Jose Roberto Hernandez MD LAB BLOOD ORDERABLES Final R esult Performing Organization Address [facility] [place] [address] * Iron profile w/ IBC (11/25/2023 9:26 PM CDT) Pathologist [facility] Iron 72 35 - 145 mcg/dL TIBC See Comment 250 - 400 mcg/dL [facility] Comment:Unable to calculate Transferrin saturation See Comment 20 - 50 % [facility] Comment:Unable to calculate Blood 11/25/2023 9:26 PM CDT 11/25/2023 9:39 PM CDT Result [facility] Jose Roberto Hernandez MD LAB BLOOD ORDERABLES Final R esult Performing Organization Address City/[facility] Co de Phone Number [facility] [place] [address] * Protime-INR (11/25/2023 9:26 PM CDT) PT 11.8 10.3 - 13.7 sec INR 1.04 0.90 - 1.20 [facility] Comment: Interpretive data Oral anticoagulant therapeutic ranges: Venous thromboembolism prophylaxis or treatment: 2.0-3.0 CARDIOLOGY Standard range: 2.0-3.0 High-intensity range: 2.5-3.5 Refer to indication-specific guidelines for appropriate target ranges for prosthetic heart valve replacement. Current interpretive data was last revised on 2019. Blood 11/25/2023 9:26 PM CDT 11/25/2023 9:44 PM CDT us Jose Roberto Hernandez MD LAB BLOOD ORDERABLES Final R esult Performing Organization Address [facility] Co de Phone Number [facility] [place] [address] * (ABNORMAL) eGFR (11/25/2023 7:09 PM CDT) eGFR 46(L) >=60 mL/min/1. 73 m2 Comment: Interpretive Data [...] interpretive data was last reviewed 2021. Blood 11/25/2023 7:09 PM CDT 11/25/2023 7:22 PM CDT us Duong Choi MD LAB BLOOD ORDERABLES Fin al Result Performing Organization Address City/[facility] Co de Phone Number VALENTE [facility] [place] [address] * Differential, auto (11/25/2023 7:09 PM CDT) Neutrophil abs 2.0 1.5 - 6.5 K/cumm Imm gran abs 0.0 0.0 - 0.1 K/cumm [facility] Lymphocyte abs 0.9 0.8 - 3.3 K/cumm [facility] Monocyte abs 0.5 0.2 - 0.8 K/cumm [facility] Eosinophil abs 0.1 0.0 - 0.5 K/cumm [facility] Basophil abs 0.0 0.0 - 0.1 K/cumm [facility] Neutrophil pct 58.6 % [facility] Comment: Interpretive Data Percent cell count reference ranges are not reported, since discordance with absolute values may lead to misinterpretation of CBC data. Current Interpretive Data was last revised on 2017. Imm gran pct 0.0 % [facility] Comment: Interpretive Data Percent cell count reference ranges are not reported, since discordance with absolute values may lead to misinterpretation of CBC data. Current Interpretive Data was last revised on 2017. Lymphocyte pct 25.4 % [facility] Comment: Interpretive Data Percent cell count reference ranges are not reported, since discordance with absolute values may lead to misinterpretation of CBC data. Current Interpretive Data was last revised on 2017. Monocyte pct 13.4 % [facility] Comment: Interpretive Data Percent cell count reference ranges are not reported, since discordance with absolute values may lead to misinterpretation of CBC data. Current Interpretive Data was last revised on 2017. Eosinophil pct 2.3 % [facility] Comment: Interpretive Data Percent cell count reference ranges are not reported, since discordance with absolute values may lead to misinterpretation of CBC data. Current Interpretive Data was last revised on 2017. Basophil pct 0.3 % [facility] Comment: Interpretive Data Percent cell count reference ranges are not reported, since discordance with absolute values may lead to misinterpretation of CBC data. Current Interpretive Data was last revised on 2017. Blood 11/25/2023 7:09 PM CDT 11/25/2023 7:21 PM CDT Duong Choi MD LAB BLOOD ORDERABLES Fin al Result Performing Organization Address [facility] Co de Phone Number [facility] [place] [address] * Type and screen (11/25/2023 7:09 PM CDT) ABO Rh B Negative Cheri, indirect Negative [facility] Blood 11/25/2023 7:09 PM CDT 11/25/2023 7:35 PM CDT Narrative [facility] - 11/25/2023 8:27 PM CDT Has the patient had Daratumumab or Isatuximab in the past 6 months?->Unknown Duong Choi MD LAB BLOOD BANK TEST ORDE RABLES Final Result Performing Organization Address [facility] de Phone Number [place] [address] * (ABNORMAL) aPTT (11/25/2023 7:09 PM CDT) aPTT 42(H) 28 - 38 sec Comment: Interpretive Data Heparin therapeutic range: 66.0 - 100.0 seconds. Range based on correlation with therapeutic heparin activity range of 0.3 - 0.7 Units/mL. Current interpretive data was last revised on 2023. Blood 11/25/2023 7:09 PM CDT 11/25/2023 7:30 PM CDT Duong Choi MD LAB BLOOD ORDERABLES Fin al Result Performing Organization Address [facility] Co de Phone Number [facility] Department [place] [address] * Protime-INR (11/25/2023 7:09 PM CDT) PT 13.1 10.3 - 13.7 sec INR 1.15 0.90 - 1.20 [facility] Comment: Interpretive data Oral anticoagulant therapeutic ranges: Venous thromboembolism prophylaxis or treatment: 2.0-3.0 CARDIOLOGY Standard range: 2.0-3.0 High-intensity range: 2.5-3.5 Refer to indication-specific guidelines for appropriate target ranges for prosthetic heart valve replacement. Current interpretive data was last revised on 2019. Blood 11/25/2023 7:09 PM CDT 11/25/2023 7:30 PM CDT Duong Choi MD LAB BLOOD ORDERABLES Fin al Result Performing Organization Address [facility] de Phone Number [facility] Department [place] [address] * Phosphorus (11/25/2023 7:09 PM CDT) Phosphorus, pl 3.0 2.3 - 4.5 mg/dL Blood 11/25/2023 7:09 PM CDT 11/25/2023 7:22 PM CDT Result [facility] Duong Choi MD LAB BLOOD ORDERABLES Fin al Result Performing Organization Address [facility] de Phone Number [facility] Department [place] [address] * Magnesium (11/25/2023 7:09 PM CDT) Magnesium 1.8 1.4 - 2.5 mg/dL Blood 11/25/2023 7:09 PM CDT 11/25/2023 7:22 PM CDT Duong Choi MD LAB BLOOD ORDERABLES Fin al Result Performing Organization Address [facility]/ZIP Co de Phone Number [facility] Department [place] [address] * (ABNORMAL) CBC with auto differential (11/25/2023 7:09 PM CDT) [facility] WBC 3.4(L) 3.8 - 9.9 K/cumm Hgb 8.5(L) 11.9 - 15.5 g/dL [facility] Hct 26.7(L) 35.6 - 45.5 % [facility] Plt 213 150 - 400 K/cumm [facility] MPV 11.6 9.1 - 12.3 fL [facility] RBC 3.02(L) 3.90 - 5.20 M/cumm [facility] MCV 88.4 81.3 - 96.4 fL [facility] MCH 28.1 27.1 - 33.3 pg [facility] MCHC 31.8(L) 32.3 - 35.7 g/dL [facility] RDW CV 20.9(H) 11.1 - 14.9 % [facility] RDW SD 67.1(H) 35.7 - 48.1 fL [facility] NRBC abs 0.00 0.00 - 0.01 K/cumm [facility] Blood 11/25/2023 7:09 PM CDT 11/25/2023 7:21 PM CDT Duong Choi MD LAB BLOOD ORDERABLES Fin al Result [facility] Department [place] [address] * (ABNORMAL) Comprehensive metabolic panel (11/25/2023 7:09 PM CDT) [facility] Sodium 135 135 - 145 mmol/L Potassium, pl 3.9 3.3 - 4.9 mmol/L [facility] Chloride 103 97 - 110 mmol/L [facility] CO2 23 22 - 32 mmol/L [facility] Anion gap 9 2 - 15 mmol/L [facility] BUN 13 6 - 25 mg/dL [facility] Creatinine 1.22(H) 0.60 - 1.10 mg/dL [facility] Glucose 99 70 - 199 mg/dL [facility] Comment: Interpretive Data Fasting glucose >/= 126 [...] classification and Diagnosis of Diabetes Diabetes Care 2021; 46: S19-S40. Current interpretive data was last revised 2022. Calcium 9.8 8.5 - 10.3 mg/dL [facility] Bilirubin, total 0.8 0.1 - 1.2 mg/dL [facility] Protein, pl 6.4(L) 6.5 - 8.5 g/dL [facility] Albumin 3.5 3.5 - 5.0 g/dL [facility] Alk phos 152(H) 40 - 130 Units/L [facility] ALT 683(H) 7 - 45 Units/L [facility] AST 257(H) 10 - 45 Units/L [facility] Blood 11/25/2023 7:09 PM CDT 11/25/2023 7:22 PM CDT Duong Choi MD LAB BLOOD ORDERABLES [facility] al Result Performing Organization Address City/State/[facility] Co de Phone Number [facility] [place] [address] * XR Tibia Fibula Right 2 Views (11/25/2023 3:34 PM CDT) Anatomical Region Laterality Modality Lower Extremities, Lower Leg Right Com puted Radiography 11/25/2023 3:41 PM CDT Impressions 11/25/2023 3:41 PM CDT No priors are available for review. A right total knee arthroplasty is noted. ??There is soft tissue swelling of the lateral upper/mid calf. No acute fracture. ??No specific radiographic evidence of osteomyelitis.. ??Vascular calcifications Electronically signed by: Stefanie Burden M.D. Narrative 11/25/2023 3:41 PM CDT EXAMINATION: Right tibia fibula 2 view. HISTORY: Swelling. ??Unclear history of trauma. Procedure Note Stefanie Burden MD - 11/25/2023 EXAMINATION: Right tibia fibula 2 view. HISTORY: Swelling. Unclear history of trauma. IMPRESSION: No priors are available for review. A right total knee arthroplasty is noted. There is soft tissue swelling of the lateral upper/mid calf. No acute fracture. No specific radiographic evidence of osteomyelitis.. Vascular calcifications Electronically signed by: Stefanie Burden M.D. Elio Lewis MD IMG XR PROCEDURES Final Result * US Lower Extremity Right Limited (11/25/2023 10:09 AM CDT) Anatomical Region Laterality Modality Lower Extremities Right Ultrasound 11/25/2023 10:1 4 AM CDT Impressions 11/25/2023 10:44 AM CDT Hypoechoic subcutaneous collection without vascularity or hyperemia compatible with an evolving hematoma. Dictated by: Roberto Campbell MD The radiology attending physician has personally reviewed this study, and had reviewed and/or edited this written report and agrees with it. Electronically signed by: Va Hernandez M.D. Narrative 11/25/2023 10:44 AM CDT EXAMINATION: 1. ??US LOWER EXTREMITY RIGHT LIMITED HISTORY: Fall COMPARISON: None FINDINGS: Targeted grayscale images overlying the right lower leg at the region of interest was performed. There is a lobulated hypoechoic subcutaneous collection overlying the lateral right lower leg measuring approximately 8.4 x 1.9 x 4.5 cm (craniocaudal by AP by transverse). ??There is no associated vascularity within this collection. Procedure Note Va Hernandez MD - 11/25/2023 EXAMINATION: 1. US LOWER EXTREMITY RIGHT LIMITED HISTORY: Fall COMPARISON: None FINDINGS: Targeted grayscale images overlying the right lower leg at the region of interest was performed. There is a lobulated hypoechoic subcutaneous collection overlying the lateral right lower leg measuring approximately 8.4 x 1.9 x 4.5 cm (craniocaudal by AP by transverse). There is no associated vascularity within this collection. IMPRESSION: Hypoechoic subcutaneous collection without vascularity or hyperemia compatible with an evolving hematoma. Dictated by: Roberto Campbell MD The radiology attending physician has personally reviewed this study, and had reviewed and/or edited this written report and agrees with it. Electronically signed by: Va Hernandez M.D. Elio Lewis MD IMG US PROCEDURES Final Result * C. difficile testing Stool (11/25/2023 7:18 AM CDT) Pathologist [facility] Result Negative Negative Toxin Result Negative Negative [facility] C. diff result Negative, free toxin Negative, free toxin [facility] C. diff interp Negative for toxigenic Clostridioides (Clostridium) difficile. Analysis was performed using a glutamate dehydrogenase antigen detection assay combined with a C. difficile toxin detection assay. [facility] Stool 11/25/2023 7:18 AM CDT 11/25/2023 8:40 AM CDT Kassidy Cunningham MD LAB MICROBIOLOGY - G ENERAL ORDERABLES Final Result [facility] [place] [address] * (ABNORMAL) eGFR (11/25/2023 6:47 AM CDT) [facility] eGFR 48(L) >=60 mL/min/1. 73 m2 Comment: Interpretive Data [...] interpretive data was last reviewed 2021. Blood 11/25/2023 6:47 AM CDT 11/25/2023 6:58 AM CDT us Seamus Pimentel Jr., MD LAB BLOOD ORDERABLES F inal Result [facility] [place] [address] * (ABNORMAL) Comprehensive metabolic panel (11/25/2023 6:47 AM CDT) Sodium 135 135 - 145 mmol/L Potassium, pl 4.0 3.3 - 4.9 mmol/L [facility] Chloride 102 97 - 110 mmol/L [facility] CO2 20(L) 22 - 32 mmol/L [facility] Anion gap 13 2 - 15 mmol/L [facility] BUN 11 6 - 25 mg/dL [facility] Creatinine 1.18(H) 0.60 - 1.10 mg/dL [facility] Glucose 84 70 - 199 mg/dL [facility] Comment: Interpretive Data Fasting glucose >/= 126 [...] classification and Diagnosis of Diabetes Diabetes Care 2021; 46: S19-S40. Current interpretive data was last revised 2022. Calcium 9.8 8.5 - 10.3 mg/dL [facility] Bilirubin, total 0.9 0.1 - 1.2 mg/dL [facility] Protein, pl 6.6 6.5 - 8.5 g/dL [facility] Albumin 3.6 3.5 - 5.0 g/dL [facility] Alk phos 166(H) 40 - 130 Units/L [facility] ALT 796(H) 7 - 45 Units/L [facility] AST 364(H) 10 - 45 Units/L [facility] Blood 11/25/2023 6:47 AM CDT 11/25/2023 6:58 AM CDT Seamus Pimentel Jr., MD LAB BLOOD ORDERABLES F inal Result [facility] [place] [address] * (ABNORMAL) CBC without differential (11/25/2023 6:47 AM CDT) Pathologist [facility] WBC 3.8 3.8 - 9.9 K/cumm Hgb 8.4(L) 11.9 - 15.5 g/dL [facility] Hct 26.2(L) 35.6 - 45.5 % [facility] Plt 198 150 - 400 K/cumm [facility] MPV 10.9 9.1 - 12.3 fL [facility] RBC 3.00(L) 3.90 - 5.20 M/cumm [facility] MCV 87.3 81.3 - 96.4 fL [facility] MCH 28.0 27.1 - 33.3 pg [facility] MCHC 32.1(L) 32.3 - 35.7 g/dL [facility] RDW CV 21.0(H) 11.1 - 14.9 % [facility] RDW SD 65.5(H) 35.7 - 48.1 fL [facility] NRBC abs 0.00 0.00 - 0.01 K/cumm [facility] Blood 11/25/2023 6:47 AM CDT 11/25/2023 6:58 AM CDT us Seamus Pimentel Jr., MD LAB BLOOD ORDERABLES F inal Result Performing Organization Address [facility] Co de Phone Number [facility] Department [place] [employer] [place] [address] * (ABNORMAL) Urinalysis, microscopic only (11/24/2023 3:33 PM CDT) WBC, ur 0-5 0 - 5 /HPF RBC, ur 0-2 0 - 2 /HPF [facility] Epithelial cells, squamous, ur 1-5 0 - 5 /HPF [facility] Epithelial cells, transitional, ur 1-5 0 - 0 /HPF [facility] Bacteria, ur 1+(A) [facility] Culture Reflex Comment Reflex conditions for urine culture (WBC >10) not met. [facility] Urine 11/24/2023 3:33 PM CDT 11/24/2023 4:06 PM CDT us Kassidy Cunningham MD LAB URINE ORDERABLES Final Result Performing Organization Address [facility] Co de Phone Number [facility] [employer] [place], [place] [id number] * (ABNORMAL) Urinalysis reflex to microscopic and culture Urine (11/24/2023 3:33 PM CDT) Color, ur Straw Yellow Clarity, ur Clear Clear [facility] Specific gravity, ur 1.015 1.003 - 1.030 [facility] pH, urine 6.5 [facility] Comment: Interpretive Data ? Urine pH is affected by diet, medications, systemic acid-base disturbances, and renal tubular function. ??pH may affect urinary stone formation. ??For example, urine pH below 6.0 may help reduce the tendency for calcium phosphate stones and pH greater than 6.0 may reduce the tendency for uric acid stone formation. Source: [facility] [employer] Current Interpretive Data was last revised on 2017 Protein, ur ql Negative Negative [facility] Glucose, ur ql Negative Negative [facility] Ketones, ur Negative Negative [facility] Bilirubin, ur Negative Negative [facility] Blood, ur Negative Negative [facility] Urobilinogen, ur <2.0 <2.0 mg/dL [facility] Nitrite, ur Negative Negative [facility] Leukocyte esterase, ur 2+(A) Negative [facility] UA reflex comment Reflex to microscopic UA will be performed. [facility] Urine 11/24/2023 3:33 PM CDT 11/24/2023 4:06 PM CDT Kassidy Cunningham MD LAB MICROBIOLOGY - G ENERAL ORDERABLES Final Result [facility] [place] [address] * CT Abdomen Pelvis W Contrast (11/24/2023 2:42 PM CDT) Anatomical Region Laterality Modality Body N/A Computed Tomogra phy 11/24/2023 2:55 PM CDT Impressions 11/24/2023 2:55 PM CDT 1. Tiny hyperdensity within the dependent portion of the common bile duct is most consistent with a small stone. ??There is mild central intrahepatic and mild to moderate extrahepatic biliary duct dilatation to level the ampulla, similar in severity compared to prior examination. ??Consider further evaluation with ERCP. 2. New but age indeterminate moderate to severe compression fracture at T12. ??Unchanged moderate severe height loss at T11. ??There are also healing right inferior and superior pubic rami fractures which are new from the prior exam. Electronically signed by: Benjamín Villeda M.D. Narrative 11/24/2023 2:55 PM CDT EXAMINATION: CT ABDOMEN PELVIS W CONTRAST HISTORY: 78 years-old Female with nausea and vomiting. TECHNIQUE: Transaxial computed tomographic images of the abdomen and pelvis were obtained after the uneventful administration of 100 mL Optiray 350 according to standard protocol. COMPARISON: CT dated 03/16/2023. FINDINGS: There are changes of median sternotomy which are incompletely evaluated. ??Heart size is mildly enlarged. ??No pleural or pericardial effusion. ??There is mild dependent atelectasis, without focal consolidation in the visualized lung bases. No focal hepatic lesion. ??Gallbladder is surgically absent. ??There is mild intrahepatic and mild to moderate extra hepatic biliary duct dilatation to level the ampulla. ??The degree of duct dilatation is not appreciably changed, though there is a tiny hypodensity within dependent portion the common bile duct seen on table position -918. Pancreas is normal. ??Note is made of a periampullary duodenal diverticulum. ??No focal splenic lesion. ??There is a left adrenal myelolipoma. ??Right adrenal gland is normal. ??Scattered renal cysts, without hydronephrosis or suspicious renal lesion. There are surgical clips seen in the left upper quadrant. ??Stomach and duodenum are normal. ??No distended or thickened loops of small or large bowel. ??No free fluid or gas. ??No abdominal or pelvic lymphadenopathy. ??Uterus is normal. ??No adnexal masses. ??Urinary bladder is mildly distended, without wall thickening or perivesicular fat stranding. No suspicious osseous lesions. ??There are healing or healed fractures of the right inferior and superior pubic ramus, both of which are new from 03/16/2023. ??There is severe right hip arthritis and mild left hip osteomyelitis. 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 ??Moderate compression fractures at T11 and T12. ??The T11 compression fracture is unchanged in the T12 compression fracture is new, moderate to severe in height loss. ??There are changes of posterior decompression in the lower lumbar spine. Procedure Note Benajmín Villeda MD - 11/24/2023 EXAMINATION: CT ABDOMEN PELVIS W CONTRAST HISTORY: 78 years-old Female with nausea and vomiting. TECHNIQUE: Transaxial computed tomographic images of the abdomen and pelvis were obtained after the uneventful administration of 100 mL Optiray 350 according to standard protocol. COMPARISON: CT dated 03/16/2023. FINDINGS: There are changes of median sternotomy which are incompletely evaluated. Heart size is mildly enlarged. No pleural or pericardial effusion. There is mild dependent atelectasis, without focal consolidation in the visualized lung bases. No focal hepatic lesion. Gallbladder is surgically absent. There is mild intrahepatic and mild to moderate extra hepatic biliary duct dilatation to level the ampulla. The degree of duct dilatation is not appreciably changed, though there is a tiny hypodensity within dependent portion the common bile duct seen on table position -918. Pancreas is normal. Note is made of a periampullary duodenal diverticulum. No focal splenic lesion. There is a left adrenal myelolipoma. Right adrenal gland is normal. Scattered renal cysts, without hydronephrosis or suspicious renal lesion. There are surgical clips seen in the left upper quadrant. Stomach and duodenum are normal. No distended or thickened loops of small or large bowel. No free fluid or gas. No abdominal or pelvic lymphadenopathy. Uterus is normal. No adnexal masses. Urinary bladder is mildly distended, without wall thickening or perivesicular fat stranding. No suspicious osseous lesions. There are healing or healed fractures of the right inferior and superior pubic ramus, both of which are new from 03/16/2023. There is severe right hip arthritis and mild left hip osteomyelitis. 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 Moderate compression fractures at T11 and T12. The T11 compression fracture is unchanged in the T12 compression fracture is new, moderate to severe in height loss. There are changes of posterior decompression in the lower lumbar spine. IMPRESSION: 1. Tiny hyperdensity within the dependent portion of the common bile duct is most consistent with a small stone. There is mild central intrahepatic and mild to moderate extrahepatic biliary duct dilatation to level the ampulla, similar in severity compared to prior examination. Consider further evaluation with ERCP. 2. New but age indeterminate moderate to severe compression fracture at T12. Unchanged moderate severe height loss at T11. There are also healing right inferior and superior pubic rami fractures which are new from the prior exam. Electronically signed by: Benjamín Villeda M.D. Result [facility] Kassidy Cunningham MD IMG CT PROCEDURES Fi nal Result * Hepatitis panel, acute Blood (11/24/2023 12:01 PM CDT) [facility] Hep A IgM Nonreactive Nonreactive Hep B core IgM Nonreactive Nonreactive [facility] Hep C Ab Nonreactive Nonreactive [facility] Comment:Antibodies to HCV no t detected. Does NOT exclude the possibility of recent exposure to HCV. Current interpretive data was last revised on 22 HepBsAg Nonreactive Nonreactive [facility] Blood 11/24/2023 12:0 1 PM CDT 11/24/2023 12:20 PM CDT Result [facility] Kassidy Cunningham MD LAB MICROBIOLOGY - G ENERAL ORDERABLES Final Result Performing Organization Address City/[facility]/ZIP Co de Phone Number [facility] Department [place] [address] * Troponin I high-sensitivity 2-hour (11/24/2023 12:01 PM CDT) [facility] Trop I hs 16 <=17 ng/L Comment: Interpretive Data For further hscTnI resources including the diagnostic algorithm and an aid in interpretation, copy and paste this link: https://bjhlab.testcatalog.org/show/hsTrop-[email or web address] Current Interpretive Data last revised 2019. Trop I hs delta 1 ng/L [facility] Trop I hs interp Insignificant [facility] Blood 11/24/2023 12:0 1 PM CDT 11/24/2023 12:20 PM CDT Elisha Jose MD LAB BLOOD ORDERABLES Final Result Performing Organization Address City/[facility]/ZIP Co de Phone Number [facility] Department [place] [address] * POCUS Soft Tissue of the Upper or Lower Extremity (11/24/2023 11:32 AM CDT) Anatomical Region Laterality Modality Other 11/24/2023 11:2 5 AM CDT Narrative 11/28/2023 10:16 PM CDT Performed by: Myla Harper/CAL: ?Exam Information: ?Exam type: ??Diagnostic ?Indication(s) for Exam: ?Pain, Swelling ?Location : ??Lower extremity ?Side: ??Right ?Findings: ?Tissue thickness: ??Thickened ?Cobblestoning: ??Increased ?Tissue echogenicity: ??Normal ?Subcutaneous collection: ??Present ?Subcutaneous gas/air: ??Absent ?Foreign body: ??Absent ?Fascial fluid: ??Absent ?Muscle appearance: ??Indeterminate ?Muscle echogenicity: ??Indeterminate ?Intramuscular collection(s): ??Indeterminate ?Tendon defect: ??Indeterminate ?Joint: ??Indeterminate ?Bone cortex appearance: ??Indeterminate ?Other: ??soft tissue fluid collection, ddx abscess, hematoma ?Confirmatory study: ?Confirmatory study done? : ??Consult Electronically signed by Elisha Jose on Tuesday, November 28, 2023 at 10:16 PM I have reviewed the images & the resident's interpretation. I agree with the findings. Procedure Note Elisha Jose MD - 11/28/2023 Performed by: Shepler, Myla Soft Tissue/MSK: Exam Information: Exam type: Diagnostic Indication(s) for Exam: Pain, Swelling Location : Lower extremity Side: Right Findings: Tissue thickness: Thickened Cobblestoning: Increased Tissue echogenicity: Normal Subcutaneous collection: Present Subcutaneous gas/air: Absent Foreign body: Absent Fascial fluid: Absent Muscle appearance: Indeterminate Muscle echogenicity: Indeterminate Intramuscular collection(s): Indeterminate Tendon defect: Indeterminate Joint: Indeterminate Bone cortex appearance: Indeterminate Other: soft tissue fluid collection, ddx abscess, hematoma Confirmatory study: Confirmatory study done? : Consult Electronically signed by Elisha Jose on Tuesday, November 28, 2023 at 10:16PM I have reviewed the images & the resident's interpretation. I agree withthe findings. us Elisha Jose MD POCUS ORDERABLES Final Res ult * (ABNORMAL) eGFR (11/24/2023 9:49 AM CDT) eGFR 43(L) >=60 mL/min/1. 73 m2 Comment: Interpretive Data [...] of Race in Diagnosing Kidney Disease, JASN 202). The CKD-EPI equation should not be used for patients with unstable renal function and has not been validated in children and those over 70. Current interpretive data was last reviewed 2021. Blood 11/24/2023 9:49 AM CDT 11/24/2023 10:02 AM CDT Elisha Jose MD LAB BLOOD ORDERABLES Final Result [facility] [place] [address] * (ABNORMAL) Differential, auto (11/24/2023 9:49 AM CDT) Neutrophil abs 1.9 1.5 - 6.5 K/cumm Imm gran abs 0.0 0.0 - 0.1 K/cumm [facility] Lymphocyte abs 0.5(L) 0.8 - 3.3 K/cumm [facility] Monocyte abs 0.5 0.2 - 0.8 K/cumm [facility] Eosinophil abs 0.3 0.0 - 0.5 K/cumm [facility] Basophil abs 0.0 0.0 - 0.1 K/cumm [facility] Neutrophil pct 58.6 % [facility] Comment: Interpretive Data Percent cell count reference ranges are not reported, since discordance with absolute values may lead to misinterpretation of CBC data. Current Interpretive Data was last revised on 2017. Imm gran pct 0.3 % [facility] Comment: Interpretive Data Percent cell count reference ranges are not reported, since discordance with absolute values may lead to misinterpretation of CBC data. Current Interpretive Data was last revised on 2017. Lymphocyte pct 16.4 % [facility] Comment: Interpretive Data Percent cell count reference ranges are not reported, since discordance with absolute values may lead to misinterpretation of CBC data. Current Interpretive Data was last revised on 2017. Monocyte pct 16.7 % [facility] Comment: Interpretive Data Percent cell count reference ranges are not reported, since discordance with absolute values may lead to misinterpretation of CBC data. Current Interpretive Data was last revised on 2017. Eosinophil pct 7.7 % [facility] Comment: Interpretive Data Percent cell count reference ranges are not reported, since discordance with absolute values may lead to misinterpretation of CBC data. Current Interpretive Data was last revised on 2017. Basophil pct 0.3 % [facility] Comment: Interpretive Data Percent cell count reference ranges are not reported, since discordance with absolute values may lead to misinterpretation of CBC data. Current Interpretive Data was last revised on 2017. Blood 11/24/2023 9:49 AM CDT 11/24/2023 10:02 AM CDT Elisha Jose MD LAB BLOOD ORDERABLES Final Result Performing Organization Address City/[facility]/ZIP Co de Phone Number [facility] [place] [address] * Troponin I high-sensitivity series (baseline, 2hr, 4hr, 6hr) (11/24/2023 9:49 AM CDT) Trop I hs 15 <=17 ng/L Comment: Interpretive Data For further hscTnI resources including the diagnostic algorithm and an aid in interpretation, copy and paste this link: https://bjhlab.testcatalog.org/show/hsTrop-1 Current Interpretive Data last revised 2019. Blood 11/24/2023 9:49 AM CDT 11/24/2023 10:01 AM CDT Elisha Jose MD LAB BLOOD ORDERABLES Final Result Performing Organization Address City/[facility]/ZIP Co de Phone Number [facility] [place] [address] * Lipase (11/24/2023 9:49 AM CDT) Lipase 31 10 - 99 Units/L Blood (Blood, Venous) 11/24/2023 9:49 AM CDT 11/24/2023 10:02 AM CDT Elisha Jose MD LAB BLOOD ORDERABLES Final Result [facility] [place] [address] * (ABNORMAL) Comprehensive metabolic panel (11/24/2023 9:49 AM CDT) Sodium 135 135 - 145 mmol/L Potassium, pl 4.0 3.3 - 4.9 mmol/L [facility] Chloride 103 97 - 110 mmol/L [facility] CO2 23 22 - 32 mmol/L [facility] Anion gap 9 2 - 15 mmol/L [facility] BUN 12 6 - 25 mg/dL [facility] Creatinine 1.29(H) 0.60 - 1.10 mg/dL [facility] Glucose 106 70 - 199 mg/dL [facility] Comment: Interpretive Data Fasting glucose >/= 126 [...] interpretive data was last revised 2022. Calcium 9.7 8.5 - 10.3 mg/dL [facility] Bilirubin, total 0.9 0.1 - 1.2 mg/dL [facility] Protein, pl 6.9 6.5 - 8.5 g/dL [facility] Albumin 4.0 3.5 - 5.0 g/dL [facility] Alk phos 185(H) 40 - 130 Units/L [facility] ALT 1,087(H) 7 - 45 Units/L [facility] AST 673(H) 10 - 45 Units/L [facility] Blood 11/24/2023 9:49 AM CDT 11/24/2023 10:02 AM CDT us Elisha Jose MD LAB BLOOD ORDERABLES Final Result [facility] [place] [address] * (ABNORMAL) CBC with auto differential (11/24/2023 9:49 AM CDT) WBC 3.2(L) 3.8 - 9.9 K/cumm Hgb 8.8(L) 11.9 - 15.5 g/dL [facility] Hct 27.6(L) 35.6 - 45.5 % [facility] Plt 191 150 - 400 K/cumm [facility] MPV 11.5 9.1 - 12.3 fL [facility] RBC 3.14(L) 3.90 - 5.20 M/cumm [facility] MCV 87.9 81.3 - 96.4 fL [facility] MCH 28.0 27.1 - 33.3 pg [facility] MCHC 31.9(L) 32.3 - 35.7 g/dL [facility] RDW CV 20.8(H) 11.1 - 14.9 % [facility] RDW SD 65.2(H) 35.7 - 48.1 fL [facility] NRBC abs 0.00 0.00 - 0.01 K/cumm [facility] Blood (Blood, Venous) 11/24/2023 9:49 AM CDT 11/24/2023 10:02 AM CDT Elisha Jose MD LAB BLOOD ORDERABLES Final Result [facility] [place] [address] documented in this encounter Visit Diagnoses Diagnosis Acute hepatitis- Primary Acute and subacute necrosis of liver Hepatitis Unspecified hepatitis Cellulitis of right lower extremity Choledocholithiasis Calculus of bile duct without mention of cholecystitis or obstruction Choledocholithiasis Calculus of bile duct without mention of cholecystitis or obstruction Hematoma of right lower leg A-fib (CMS/HCC) (HCC) Atrial fibrillation Hx of CABG Postsurgical aortocoronary bypass status Iron deficiency anemia, unspecified Apical variant hypertrophic cardiomyopathy (HCC) Chronic kidney disease (CKD), stage III (moderate) (HCC) Chronic kidney disease, Stage III (moderate) Pancreatitis Acute pancreatitis documented in this encounter Admitting Diagnoses Diagnosis Acute hepatitis Acute and subacute necrosis of liver Choledocholithiasis Calculus of bile duct without mention of cholecystitis or obstruction documented in this encounter Administered Medications Inactive Administered Medications - up to 3 most recent administrations Medication Order MAR Action Action Date Dose Rate Site acetaminophen (TYLENOL) tablet 500 mg 500 mg, oral, Once, On Fri11/27/23 at 2015, For 1 dose Given 11/27/2023 9:22 PM CDT 500 mg acetaminophen (TYLENOL) tablet 650 mg 650 mg, oral, Once, On Fri12/01/23 at 1900, For 1 dose Given 12/01/2023 6:26 PM CDT 650 mg acetaminophen (TYLENOL) tablet 650 mg 650 mg, oral, Every 6 hours PRN, 1st line for pain, Starting on Fri12/02/23 at 2215 Given 12/02/2023 10:42 PM CDT 650 mg fcfoixiginics-jwwbwyn-gczxlnqy (EXCEDRIN MIGRAINE) 250-250-65 mg per tablet 1 tablet 1 tablet, oral, Once, On Fri12/01/23 at 2145, For 1 dose Given 12/02/2023 12:39 AM CDT 1 tablet amiodarone (PACERONE) tablet 200 mg 200 mg, oral, Daily, First dose on Fri11/25/23 at 0900 Given 12/03/2023 8:24 AM CDT 200 mg Given 12/02/2023 8:15 AM CDT 200 mg Given 12/01/2023 8:47 AM CDT 200 mg apixaban (ELIQUIS) tablet 5 mg 5 mg, oral, Every 12 hours scheduled, First dose on Fri11/28/23 at 0945, Nurse to discontinue heparin infusion order and associated bolus at first administration of apixaban using ? order condition met? order source, Indications: atrial fibrillationIndications:atrial fibrillation Given 12/03/2023 8:24 AM CDT 5 mg Given 12/02/2023 8:09 PM CDT 5 mg Given 12/02/2023 8:16 AM CDT 5 mg atorvastatin (LIPITOR) tablet 80 mg 80 mg, oral, Nightly, First dose on Fri11/25/23 at 2100, On hold since Fri11/29/2023 at 0024 until manually unheld Given 11/28/2023 8:17 PM CDT 80 mg Given 11/27/2023 9:22 PM CDT 80 mg Given 11/26/2023 8:17 PM CDT 80 mg calcium carbonate-vitamin D3 1,250mg (500mg elemental) - 5 mcg (200 units) per tablet 1 tablet 1 tablet, oral, Daily, First dose on Fri11/25/23 at 1930 Given 12/03/2023 8:23 AM CDT 1 tablet Given 12/02/2023 8:14 AM CDT 1 tablet Given 12/01/2023 8:47 AM CDT 1 tablet ezetimibe (ZETIA) tablet 10 mg 10 mg, oral, Daily, First dose on Fri11/25/23 at 1930 Given 12/03/2023 8:24 AM CDT 10 mg Given 12/02/2023 8:15 AM CDT 10 mg Given 12/01/2023 8:47 AM CDT 10 mg ioversoL (OPTIRAY 350) syringe 100 mL 100 mL, intravenous, Once in imaging, contrast, Starting on Fri11/24/23 at 1442, For 1 dose Contrast Given 11/24/2023 2:43 PM CDT 100 mL Lactated Ringer's (LR) bolus 1,000 mL 1,000 mL, intravenous, at 500 mL/hr, Administer over 2 Hours, Once, On Fri11/24/23 at 1045, For 1 dose New Bag 11/24/2023 11:34 AM CDT 1,000 mL 500 mL/hr Lactated Ringer's (LR) infusion 75 mL/hr, intravenous, Continuous, Starting on Fri11/27/23 at 1700, For 14 hours New Bag 11/28/2023 6:25 AM CDT 75 mL/hr 75 mL/hr New Bag 11/27/2023 4:42 PM CDT 75 mL/hr 75 mL/hr Lactated Ringer's (LR) infusion 50 mL/hr, intravenous, Continuous, Starting on Fri11/28/23 at 1100, For 10 hours New Bag 11/28/2023 10:31 AM CDT 50 mL/hr 50 mL/hr Lactated Ringer's (LR) infusion 125 mL/hr, intravenous, Continuous, Starting on Fri11/29/23 at 0445, For 1 day Rate/Dose Verify 11/29/2023 9:25 PM CDT 125 mL/hr 125 mL/hr New 11/29/2023 8:49 PM CDT 125 mL/hr 125 mL/hr New 11/29/2023 11:58 AM CDT 125 mL/hr 125 mL/hr lidocaine (LMX) 4 % cream 1 Application 1 Application, topical, Once, On Fri11/24/23 at 1151, For 1 dose, Apply to affected area: wound Given 11/24/2023 1:08 PM CDT 1 Application lidocaine-EPINEPHrine (XYLOCAINE with EPI) 1 %-1:200,000 preservative free injection 10 mL 10 mL, infiltration, Once, On Fri11/24/23 at 1151, For 1 dose, Indications: Administration of Local AnesthesiaIndications:Administra tion of Local Anesthesia Given by Other 11/24/2023 1:32 PM CDT 10 mL magnesium sulfate 2 g/50 mL in water (premix) 2 g 2 g, intravenous, Administer over 60 Minutes, Once, On Fri11/27/23 at 2015, For 1 dose, Indications: hypomagnesemiaIndications:hypoma gnesemia [facility] 11/27/2023 9:23 PM CDT 2 g magnesium sulfate 2 g/50 mL in water (premix) 2 g 2 g, intravenous, Administer over 60 Minutes, Once, On Fri11/28/23 at 2145, For 1 dose, Indications: hypomagnesemiaIndications:hypoma gnesemia [facility] 11/28/2023 9:39 PM CDT 2 g metoprolol XL (TOPROL-XL) extended release tablet 25 mg 25 mg, oral, Daily, First dose on Fri11/25/23 at 0900, Tablets that are scored may be split, but do not crush, chew, dissolve, open or otherwise manipulate tablet/capsule. Given 12/03/2023 8:24 AM CDT 25 mg Given 12/02/2023 8:15 AM CDT 25 mg Given 12/01/2023 8:47 AM CDT 25 mg midodrine (PROAMATINE) tablet 5 mg 5 mg, oral, 3 times daily, First dose on Fri11/25/23 at 0900, Indications: Symptomatic Orthostatic HypotensionIndications:Symptomatic Orthostatic Hypotension Given 11/25/2023 9:40 PM CDT 5 mg Given 11/25/2023 4:04 PM CDT 5 mg Given 11/25/2023 8:53 AM CDT 5 mg ondansetron (ZOFRAN) injection 4 mg 4 mg, intravenous, Administer over 2 Minutes, Every 4 hours PRN, nausea, vomiting, Starting on Fri11/24/23 at 1044 Given 11/25/2023 8:56 AM CDT 4 mg Given 11/24/2023 11:34 AM CDT 4 mg ondansetron (ZOFRAN) injection 4 mg 4 mg, intravenous, Administer over 2 Minutes, Once, On Fri11/27/23 at 1215, For 1 dose Given 11/27/2023 11:46 AM CDT [address] (PROTONIX) extended release tablet 40 mg 40 mg, oral, Daily, First dose on Fri11/25/23 at 1930, Do not crush, chew, cut, dissolve, open or otherwise manipulate tablet/capsule., Indications: Treatment of Non-Bleeding Gastric DisorderIndications:Treatment of Non-Bleeding Gastric Disorder Given 12/03/2023 8:24 AM CDT 40 mg Given 12/02/2023 8:16 AM CDT 40 mg Given 12/01/2023 8:47 AM CDT 40 mg prochlorperazine (COMPAZINE) injection 10 mg 10 mg, intravenous, Administer over 2 Minutes, Once, On Fri11/27/23 at 2015, For 1 dose Given 11/27/2023 9:23 PM CDT 10 mg prochlorperazine (COMPAZINE) injection 5 mg 5 mg, intravenous, Administer over 2 Minutes, Every 6 hours PRN, nausea, vomiting, Starting on Fri11/27/23 at 1527 Given 11/28/2023 8:18 PM CDT 5 mg Given 11/27/2023 4:42 PM CDT 5 mg prochlorperazine (COMPAZINE) injection 5 mg 5 mg, intravenous, Administer over 2 Minutes, Once, On Fri11/28/23 at 2145, For 1 dose Given 11/28/2023 9:43 PM CDT 5 m g ramelteon (ROZEREM) tablet 8 mg 8 mg, oral, Nightly PRN, sleep, Starting on Fri11/25/23 at 1829, Indications: Sleep-Onset InsomniaIndications:Sleep-Onset Insomnia Given 11/28/2023 8:18 PM CDT 8 m g Given 11/27/2023 9:22 PM CDT 8 mg sertraline (ZOLOFT) tablet 50 mg 50 mg, oral, Daily, First dose on Fri11/25/23 at 0900 Given 12/03/2023 8:23 AM CDT 50 mg Given 12/02/2023 8:16 AM CDT 50 mg Given 12/01/2023 8:47 AM CDT 50 mg documented in this encounter Discontinued Medications Medication Sig Discontinue Reason Start Date End Da te diclofenac DR (VOLTAREN) 75 mg EC tablet Take 1 tablet (75 mg total) by mouth 2 (two) times a day 11/04/2019 11/25/2023 cholecalciferol (VITAMIN D-3) 1,000 unit tablet Take 1 tablet (1,000 Units total) by mouth daily 11/25/2023 cyanocobalamin (Vitamin B-12) 1,000 mcg tablet Take 2 tablets (2,000 mcg total) by mouth daily 11/25/2023 cannabidiol, CBD, (medical cannabis) each 1 Dose 3 (three) times a day as needed Tablets 11/25/2023 gabapentin (NEURONTIN) 100 mg capsule Take 2 capsules (200 mg total) by mouth 2 (two) times a day 03/21/2023 11/25/2023 sulfamethoxazole-tri methoprim (BACTRIM) 400-80 mg per tablet Take 1 tablet (80 mg of trimethoprim total) by mouth 2 (two) times a day 11/17/2023 11/25/2023 metoprolol tartrate (LOPRESSOR) 25 mg immediate release tablet Take 1 tablet (25 mg total) by mouth daily as needed (to be given if pt has palpitations and is sympotmatic) Stop Taking at Discharge 03/21/2023 12/03/2023 documented as of this encounter Historical Medications * This list may reflect changes made after this encounter. sulfamethoxazole -trimethoprim (BACTRIM) 400-80 mg per tablet Take 1 tablet (80 mg of trimethoprim total) by mouth 2 (two) times a day 11/17/2023 added in this encounter Active and Recently Administered Medications Times are shown in CDT. Scheduled Medication Order 12/01/2023 12/02/2023 12/03/2023 acetaminophen (TYLENOL) tablet 650 mg (COMPLETED) 650 mg, oral, Once, On Fri12/01/23 at 1900, For 1 dose 1826 (Given - Provider: Yvonne Corrigan RN) vmbvbhudpkypb-azypmdp-yxj feine (EXCEDRIN MIGRAINE) 250-250-65 mg per tablet 1 tablet (COMPLETED) 1 tablet, oral, Once, On Fri12/01/23 at 2145, For 1 dose 0039 (Given - Provider: Thuy Moore, PHILIP) amiodarone (PACERONE) tablet 200 mg 200 mg, oral, Daily, First dose on Fri11/25/23 at 0900 0847 (Given - Provider: Yvonne Corrigan RN) 0815 (Given - Provider: Baylee Andrea, RN) 0824 (Given - Provider: Minerva Lou, RN) apixaban (ELIQUIS) tablet 5 mg 5 mg, oral, Every 12 hours scheduled, First dose on Fri11/28/23 at 0945, Nurse to discontinue heparin infusion order and associated bolus at first administration of apixaban using ? order condition met? order source, Indications: atrial fibrillation 0847 (Given - Provider: Yvonne Corrigan RN)2000 (Given - Provider: Thuy Moore RN) 0816 (Given - Provider: Baylee Andrea, RN)2008 (Given - Provider: Thuy Moore, PHILIP) 0824 (Given - Provider: Minerva Lou, RN) atorvastatin (LIPITOR) tablet 80 mg 80 mg, oral, Nightly, First dose on Fri11/25/23 at 2100, On hold since 11/29/2023 at 0024 until manually unheld 2099 (Not Given - Provider: Thuy Moore RN - Reason: See Provider Order) 2099 (Not Given - Provider: Thuy Moore RN - Reason: See Provider Order) 193 (Unheld by Provider - Provider: Automatic Discharge Provider) calcium carbonate-vitamin D3 1,250mg (500mg elemental) - 5 mcg (200 units) per tablet 1 tablet 1 tablet, oral, Daily, First dose on Fri11/25/23 at 1930 0847 (Given - Provider: Yvonne Corrigan RN) 0814 (Given - Provider: Baylee Andrea, PHILIP) 0823 (Given - Provider: Minerva Lou, RN) ezetimibe (ZETIA) tablet 10 mg 10 mg, oral, Daily, First dose on Fri11/25/23 at 1930 0847 (Given - Provider: Yvonne Corrigan RN) 0815 (Given - Provider: Baylee Andrea, PHILIP) 0824 (Given - Provider: Minerva Lou RN) metoprolol XL (TOPROL-XL) extended release tablet 25 mg 25 mg, oral, Daily, First dose on Fri11/25/23 at 0900, Tablets that are scored may be split, but do not crush, chew, dissolve, open or otherwise manipulate tablet/capsule. 0847 (Given - Provider: Yvonne Corrigan RN) 0815 (Given - Provider: Baylee Andrea, PHILIP) 0824 (Given - Provider: Minerva Lou, PHILIP) pantoprazole DR (PROTONIX) extended release tablet 40 mg 40 mg, oral, Daily, First dose on Fri11/25/23 at 1930, Do not crush, chew, cut, dissolve, open or otherwise manipulate tablet/capsule., Indications: Treatment of Non-Bleeding Gastric Disorder 0847 (Given - Provider: Yvonne Corrigan RN) 0816 (Given - Provider: Baylee Andrea, PHILIP) 0824 (Given - Provider: Minerva Lou, PHILIP) sertraline (ZOLOFT) tablet 50 mg 50 mg, oral, Daily, First dose on Fri11/25/23 at 0900 0847 (Given - Provider: Yvonne Corrigan RN) 0816 (Given - Provider: Baylee Andrea, PHILIP) 0823 (Given - Provider: Minerva Lou, PHILIP) PRN Medication Order 12/01/2023 12/02/2023 12/03/2023 acetaminophen (TYLENOL) tablet 650 mg 650 mg, oral, Every 6 hours PRN, 1st line for pain, Starting on Fri12/02/23 at 2215 2242 (Given - Provider: Adrian Moore RN) diclofenac sodium (VOLTAREN) 1 % gel 2 g 2 g, topical, 3 times daily PRN, pain, Starting on Fri11/25/23 at 1858, Use dosing card to measure dose, Apply to affected area: leg, Laterality: Right polyethylene glycol (MIRALAX) packet 17 g 17 g, oral, Daily PRN, constipation, Starting on Fri11/25/23 at 1829, Indications: constipation prochlorperazine (COMPAZINE) injection 5 mg 5 mg, intravenous, Administer over 2 Minutes, Every 6 hours PRN, nausea, vomiting, Starting on Fri11/27/23 at 1527 ramelteon (ROZEREM) tablet 8 mg 8 mg, oral, Nightly PRN, sleep, Starting on Fri11/25/23 at 1829, Indications: Sleep-Onset Insomnia documented in this encounter Orders Medications Ordered That Juvenal ht Not Have Been Administered Count Last Ordered Date First Ordered Date prochlorperazine (COMPAZINE) injection 10 mg 1 11/28/2023 ondansetron (ZOFRAN) injection 4 mg 1 11/26 indomethacin (INDOCIN) 50 mg suppository 1 11/26/2023 sodium chloride 0.9% flush 0.5-20 mL 2 11/14 sodium chloride 0.9% infusion 1 11/26/2023 acetaminophen (TYLENOL) tablet 1,000 mg 1 0 11/25/2023 diclofenac sodium (VOLTAREN) 1 % gel 2 g 1 11/25/2023 polyethylene glycol (MIRALAX) packet 17 g 1 11/25/2023 sulfamethoxazole-trimethopri m (BACTRIM DS) 800-160 mg per tablet 160 mg of trimethoprim 1 11/25/2023 Nursing Count Last Ordered Date First Orde red Date DISCHARGE ACTIVITY 1 12/03/2023 DISCHARGE CALL PROVIDER 3 12/03/2023 VERIFY INFORMED CONSENT 1 11/27/2023 WEIGH PATIENT 1 11/25/2023 Consult Count Last Ordered Date First Orde red Date Consult to General Surgery 1 11/25/2023 IP CONSULT TO GASTROENTEROLOGY 1 11/24/2023 IV Count Last Ordered Date First Orde red Date SALINE LOCK IV 1 11/24/2023 Admission Count Last Ordered Date First Orde red Date ADMIT TO INPATIENT 1 11/24/2023 Discharge Count Last Ordered Date First Orde red Date DISCHARGE PATIENT 1 12/03/2023 CORE MEASURES Count Last Ordered Date First Ord ered Date REASON FOR NO VTE PROPHYLAXIS AT ADMISSION 1 11/25/2023 Case Request Count Last Ordered Date First Orde red Date CASE REQUEST GI 1 11/25/2023 documented in this encounter Additional Health Concerns Infection Onset Date Last Indicated Resolved Time C. difficile suspected 11/24/2023 11/25/202311/24 10:38 AM CDT documented as of this encounter Care Teams Computer Installer Relationship Specialty Start Date End Date Cristian Ling MD [address] [place] [address] PCP - General 10/16/16 documented as of this encounter
--- OUTSIDE RECORDS SUMMARY | 2024-06-12 03:54 | XMS_ITS | Encounter Summary ---
Author Organization [facility] Healthcare Address [address] [place] [address] Care Team Providers Care Computer Peripheral Equipment Operator Name Role Phone Cristian Ling MD Primary Care Prov ider Reason for Visit * Reason Comments Vomiting Diarrhea * Auth/Cert (Routine) Specialty Diagnoses / Procedures Referred By Paula cardona Referred To Contact Diagnoses Acute hepatitis Procedures NA Referral ID Status Reason Start Date Expiration Date Visits Re quested Visits Authorized [id number] 1 1 Encounter Details Date Type Department Care Team (Latest Contact Info) Description 11/26/2023 4:35 PM CDT - 11/26/2023 5:20 PM CDT Surgery [facility] [address] [facility] [address] [place] [address] Heydi Fenton MD [address] [facility] [address] [place] [address] ESOPHAGOGASTRODUODENOSCOPY ENDOSCOPIC ULTRASOUND Surgery Details Date/Time Status Location OR Service Patient Class Case Class Case Type Trauma Case? 11/26/2023 4:35 PM Posted [facility] ENDOSCOPY ERCP 02 Gastroenterology Inpatient Urgent - 24 hours Panel 1 Procedure LRB Anes Op Region Wound Class Comments ESOPHAGOGASTRODUODENOSCOPY ENDOSCOPIC ULTRASOUND Left Monitor Anesthesia Care N/A ENDO ENDOSCOPIC RETROGRADE CHOLANGIOPANCREATOGRAPHY WITH STENT PLACEMENT N/A Monitor Anesthesia Care N/A RAD S AND I BILIARY DUCTAL SYSTEM N/A General Surgeon Surgeon Role Service Panel Marco Antonio Gusman MD Fellow Gastroe nterology 1 Heydi Fenton MD Primary Gastroentero logy 1 documented in this encounter Social History Tobacco Use Types Packs/Day Years Used Date Smoking Tobacco: Never Passive Smoke Exposure: Current Smokeless Tobacco: Never [facility] Utilities Answer Date Recorded In the past 12 months has [facility], gas, oil, or water company threatened to shut off services in your home? No 11/25/2023 Humiliation, Afraid, Rape, and Kick questionnair e [...] family, friends, or neighbors? Twice a week 11/25/2023 How often do you get together with friends or re latives? Once a week 11/25/2023 How often do you attend baptism or zoroastrian serv ices? Never 11/25/2023 Do you belong to any clubs o r organizations such as baptism groups, unions, fraternal or athletic groups, or school groups? No 11/25/2023 How often do you attend meet ings of the clubs or organizations you belong to? Never 11/25/2023 Are you , , di vorced, , never , or living with a partner? 11/25/2023 AUDIT-C Answer Date Recorded Q1: How often [...] food, housing, medical care, and heating? Not hard at all 11/25/2023 PHQ-2 Answer Date Recorded PHQ-2 Total Score (If total score is 3 or more points, staff should administer the PHQ-9) 0 09/28/2020 [facility] - Occupational Stress Questionnaire Answer Date [...] the money to buy more. Never true 11/25/19 24 Within the past 12 months, t he food you bought just didn't last and you didn't have money to get more. Never true 11/25/2023 PRAPARE - Transportation Answer Date Re corded In the past 12 months, has l ack of transportation kept you from medical appointments or from getting medications? No 11/14 In the past 12 months, has l ack of transportation kept you from meetings, work, or from getting things needed for daily living? No 11/25/2023 Housing Stability Vital Sign Answer Wale e Recorded In the last 12 months, was t here a time when you were not able to pay the mortgage or rent on time? No 11/25/2023 In the past 12 months, how m any times have you moved where you were living? 0 11/25/2023 At any time in the past 12 m onths, were you homeless or living in a halfway (including now)? 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 Gender Identity Female 02/07/2021 4:33 PM CDT Sexual Orientation Straight 02/07/2021 4: 33 PM CDT documented as of this encounter Last Filed Vital Signs Vital Sign Reading Time Taken Comments Blood Pressure 152/62 11/26/2023 5:20 PM CDT Pulse 59 11/25/2023 5:45 PM CDT Temperature 36.1 ??C (97 ??F) 11/26/2023 5:00 PM CDT Respiratory Rate 13 11/26/2023 5:20 PM CDT Oxygen Saturation 100% 11/26/2023 5:20 PM CDT Inhaled Oxygen Concentration - - [...] Care Physician at Discharge: Cristian Ling MD [phone] Admission Date: 11/24/2023 Discharge Date: 12/03/2023 Admission Location: [facility] Problems/Diagnoses: Principal Problem: Acute hepatitis Active Problems: [...] on AC, ApicalVariant HCM, CAD (Dr. Stafford; CA 08/2012 s/p CABG (LAWSON to LAD, SVG [...] is able tolerate low fat diet.Repeat E POST SECONDARY PROFESSIONAL in - weeks for stent removal, will be arranged [...] moderate compression #Afib on Eliquis Follow[facility]. History of afib with difficulty with rate control requiring cardioversion. Home regimen: amiodarone 200mg daily, metoprolol XL 25mg daily, eliquis 5mg BID. Continue home amiodarone 200mg daily and home metoprolol XL 25mg daily.Restart eliquis 5mg BID. #Chronic Normocytic Anemia Follows with [facility]. Anemia thought to be due to [...] AM Katja Joe MD HEM [facility] Contact Information for Follow-ups Cristian Ling MD Specialty: Family Medicine Relationship: PCP - General [address] [place] [address] Next Steps: Follow up documented in this [...] Care Everywhere. * Open Cholecystectomy (Discharge Care) (Uzbek) * Cellulitis (Discharge Care) (Uzbek) * Pancreatitis (AfterCare(R) Instructions(ER/ED)) (Uzbek) documented in this encounter Medications at Time [...] Age: 78 y.o. female Admission: 11/24/2023 Bed: [id number] LOS: 9 days Subjective Chief complaint: lft elevation Interval History - No acute concerns - Tolerating diet well - Denies pain or nausea today - Anxious about discharge, but reassured prn med use. DC to [facility] today Objective Scheduled Meds PRN Meds Infusions [...] last 24 hours. For additional labs/trends, see [facility].) I have reviewed the laboratory results. Imaging Review No results found. I have independently reviewed and interpreted pateint's chart in [facility]. Assessment/Plan Pancreatitis Assessment & Plan Post [...] anemia, unspecified Assessment & Plan Follows [facility]. Anemia thought to be due to iron deficiency as well as CKD stage IIIb. Received iron infusion in 09/2023. On admission hgb 8.4 (bl 7-9). Iron 72, ferritin 1715. - Stable H/H, last 8.5 A-fib (CMS/HCC) (HCC) Assessment & Plan [facility]s [facility]. History of afib with difficulty with [...] Living Facility, Home Health PT (Return to [facility] at [facility].) / Supplementary Attestation Discharge Planning I have [...] treatment team and contact the PT or SUPERVISOR TREATING [employer] PUMPING currently assigned to this patient. If a physical therapy clinician is not assigned to this patient, please call [phone]. 12/02/23 0830 General Chart Reviewed Yes Session [...] year. She has been living in the [facility] for almost two years. Prior Function Level of [place] Independent with ambulation;Independent functional transfers Lives With Alone Receives Help From Facility staff (Staff is available time recorder. She does have a son who lives [...] with Outstretched Arm While Standing 0 9. Foreign Correspondent Object from Floor from a Standing Position [...] Health PT (Return to prior living at [facility].) PT Recommendation/Plan Comments Pt informed of PT [...] after speaking with CI Start Time 2 929 Stop Time 2 932 Time Calculation 2 (min) 3 min Total [...] Age: 78 y.o. female Admission: 11/24/2023 Bed: [id number] LOS: 8 days Subjective Chief complaint: nausea [...] anemia, unspecified Assessment & Plan Follows with [facility] Hematology. Anemia thought to be due to iron deficiency as well as CKD stage IIIb. Received iron infusion in 09/2023. On admission hgb 8.4 (bl 7-9). Iron 72, ferritin 1715. - Stable H/H, last 8.5 A-fib (CMS/HCC) (HCC) Assessment & Plan [facility]s [facility]. History of afib with difficulty with [...] 35 minutes which was spent performing a zofa-te-[id number] encounter and personally completing the provider-level activities [...] Afib s/p cardioversion 02/2023 on Eliquis, CAD, CA in 2012 s/p CABG, apical variant HCM, CKD III, and chronic anemia who presents with nausea/vomiting and leg swelling. Objective Past Medical History: Diagnosis Date Acid reflux Heart murmur High cholesterol History of blood clots 1960s in leg as teenager - had phlebitis History of CA (myocardial infarction) 2013 History of vertebral fracture 2018 HTN (hypertension) IBS (irritable bowel syndrome) Vertigo Past Surgical History: Procedure Laterality Date CARDIOVERSION 03/2023 COLON SURGERY 1992 Repair burst colon CORONARY ARTERY BYPASS GRAFT 2012 Double by-pass - [facility] FLUORO GUIDED INJECTION HIP RIGHT Right 05/16/2022 FLUORO GUIDED INJECTION HIP RIGHT Right 08/15/2022 FLUORO GUIDED INJECTION HIP RIGHT Right 12/10/2022 FLUORO GUIDED INJECTION HIP RIGHT Right 05/13/[address] James ([place], [place]) TOTAL KNEE ARTHROPLASTY Right 2018 Social [...] glycol prochlorperazine ramelteon Recent Labs Lab Units 11/29/23215811/28/23174811/27/23214711/27/23144011/27/233 11/25/23 1909 SODIUM mmol/L 136 138 137 < > 136 135 POTASSIUM PLASMA mmol/L 3.6 3.9 4.0 < > 3.9 3.9 CHLORIDE mmol/L 103 104 103 < > 101 103 CO2 mmol/L 24 23 23 < > 22 23 BUN SERUM mg/dL 9 18 20 < > 16 13 CREATININE mg/dL 0.88 1.18* 1.23* < > 1.19* 1.22* UOS-[id number]-[id number] mL/min/1.73 m2 68 48* 45* < > 47* 46* CALCIUM mg/dL 8.6 8.8 9.3 < > 9.6 9.8 ALBUMIN g/dL 3.1* 3.4* 3.5 < > 3.7 3.5 PHOSPHORUS PLASMA mg/dL -- -- -- -- -- 3.0 MAGNESIUM mg/dL -- 2.1 1.9 -- 1.8 1.8 < > = values in this interval not displayed. Recent Labs Lab Units 11/29/23215811/28/23174811/27/23214711/27/23144011/27/23 0043 11/25/23 1909 11/25/23 0647 GLUCOSE mg/dL [...] Dietary Orders (From admission, onward) Start Ordered 11/30/23 0917 Adult Diet Restricted; Low Fat, Low Chol Diet effective now Question Answer Comment ([facility]) Diet type Restricted Fat / Sodium Restriction: Low Fat, Low Chol 11/30/23 0917 Allergies: Reviewed, milk IMPRESSION: 11/30 - screened [...] reports decreased po intake x 4 days SU[employer]. Reports 10# recent wt loss. Per chart review, pt has lost 8# x 8 months (not significant). Pt declined all oral nutrition supplements. 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 Reports good dentition. Pt reports when things [...] Weight changes Graham Zafar MS, RD, LD [facility] * Oscar De La Torre MD - 12/01/2023 12:40 PM CDT Daily Progress Note Division of Hospital Medicine Name: Tiera Lobato : 1945 Today's Date: December 01, 2023 Age: 78 y.o. female Admission: 11/24/2023 Bed: [id number] LOS: 7 days Subjective Chief complaint: Slightly [...] anemia, unspecified Assessment & Plan [facility]s [facility]. Anemia thought to be due to iron deficiency as well as CKD stage IIIb. Received iron infusion in 09/2023. On admission hgb 8.4 (bl 7-9). Iron 72, ferritin 1715. - Stable H/H, last 8.5 A-fib (CMS/HCC) (HCC) Assessment & Plan Follows [facility]. History of afib with difficulty with [...] 45 minutes which was spent performing a itfj-ba-mtkd encounter and personally completing the provider-level activities [...] Age: 78 y.o. female Admission: 11/24/2023 Bed: [id number] LOS: 6 days Subjective Chief complaint: Feels [...] at 11/30/2023 1257 Last data filed at 11/29/20232124 Gross per 24 hour Intake 1000 ml [...] anemia, unspecified Assessment & Plan Follows [facility]. Anemia thought to be due to iron deficiency as well as CKD stage IIIb. Received iron infusion in 09/2023. On admission hgb 8.4 (bl 7-9). Iron 72, ferritin 1715. - Stable H/H A-fib (CMS/HCC) (HCC) Assessment & Plan Follows with [facility]. History of afib with difficulty with [...] 42 minutes which was spent performing a rfwr-jw-vhov encounter and personally completing the provider-level activities [...] Age: 78 y.o. female Admission: 11/24/2023 Bed: [id number] LOS: 5 days Subjective Chief complaint: Denies [...] anemia, unspecified Assessment & Plan Follows with [facility] Hematology. Anemia thought to be due to iron deficiency as well as CKD stage IIIb. Received iron infusion in 09/2023. On admission hgb 8.4 (bl 7-9). Iron 72, ferritin 1715. - Monitor CBC A-fib (CMS/HCC) (HCC) Assessment & Plan Follows [facility]. History of afib with difficulty with [...] 43 minutes which was spent performing a qfkl-yu-inan encounter and personally completing the provider-level activities [...] abdominal pain is improving. It is a /10 today, compared to 11/23 yesterday. Objective Vitals: 24hr Min/Max: Temp Min: [...] moderate compression #Afib on Eliquis Follows [facility]. History of afib with difficulty with rate control requiring cardioversion. Home regimen: amiodarone 200mg daily, metoprolol XL 25mg daily, eliquis 5mg BID. PLAN - continue home amiodarone 200mg daily - continue home metoprolol XL 25mg daily - restart eliquis 5mg BID #Chronic Normocytic Anemia Follows with [facility]. Anemia thought to be due to [...] resident/fellow. Post-ERCP pancreatitis improving this AM w/ 2/10 pain. Gentle IVF today (additional 0.5L). Re-engaged biliary, who recommended advancing CLD to low fat diet (though this resulted in recurrence of pain, de-escalated again to clears). Noted that later this evening, pt had a possible Tb exposure (roommate), [facility]. Supplementary Attestation Today, I am treating the [...] s/oprior LFT elevation). Duong Choi MD * Tracy, Janice Ricks MD - 11/27/2023 2:30 PM CDT Medicine [...] tomorrow 11/27 #Chronic Normocytic Anemia Follows [facility]. Anemia thought to be due to [...] signs, LFT's, SCr. Duong Choi MD * Trisha, Tima Maloney MD - 11/27/2023 7:49 AM CDT [facility] Acute Care Emergency Surgery Consult Progress Note [...] Janice Molina MD, 10 mg at 11/26/23 0831 metoprolol XL (TOPROL-XL) extended release tablet 25 mg, 25 mg, oral, Daily, Seamus Pimentel Jr., MD, 25 mg at 11/26/[address] (PROTONIX) extended release tablet 40 mg, 40 mg, oral, Daily, Janice Molina MD, 40 mg at 11/26/23 08 polyethylene glycol (MIRALAX) packet 17 g, 17 g, oral, Daily PRN, Janice Molina MD ramelteon (ROZEREM) tablet 8 mg, 8 mg, oral, Nightly PRN, Janice Molina MD sertraline (ZOLOFT) tablet 50 mg, 50 mg, oral, Daily, MargaritoSeamus Jr., MD, 50 mg at sodium chloride [...] palpable bilaterally Labs/Imaging: Recent Labs Lab Units 11/27/23 0043 11/25/23 19011/25/23 0647 WBC K/cumm 5.2 3.4* 3.8 HEMOGLOBIN g/dL 9.3* 8.5* 8.4* HEMATOCRIT % 28.4* 26.7* 26.2* PLATELETS K/cumm 220 213 198 Recent Labs Lab Units 11/27/23 0043 11/25/23 19011/25/23 0647 SODIUM mmol/L 136 135 135 POTASSIUM PLASMA mmol/L 3.9 3.9 4.0 CHLORIDE mmol/L 101 103 102 CO2 mmol/L 22 23 20* BUN SERUM mg/dL 16 13 11 CREATININE mg/dL 1.19* 1.22* 1.18* GLUCOSE mg/dL 92 99 84 CALCIUM mg/dL 9.6 9.8 9.8 Recent Labs Lab Units 11/25/232125 PROTIME (PT) sec 11.8 INR 1.04 XR [...] 02/2023 on Eliquis (last taken 11/23/23), CAD, CA in 2012 s/p CABG, HTN, HLD, apical [...] Ensure abdominal pain improves post procedure - [facility] will sign off at this time. Please feel free to reach out to the number below for any questions or concerns. Please call the [facility] Inpatient Consult Phone with any questions or concerns regarding this patient. Tima Rico MD Resident Physician General Surgery ACCS Inpatient Consult [facility] ED Consult [facility] Outpatient Clinic - option 1 Cosigned [...] Section of Acute and Critical Care Surgery [facility] * Carmen West MD - 11/26/2023 6:51 PM CDT [facility] Acute Care Emergency Surgery Consult Progress Note [...] Daily, Janice Molina MD, 1 tablet at 11/26/23830 diclofenac sodium (VOLTAREN) 1 % gel 2 g, 2 g, topical, TID PRN, Janice Molina MD ezetimibe (ZETIA) tablet 10 mg, 10 mg, oral, Daily, Janice Molina MD, 10 mg at 11/26/23830 metoprolol XL (TOPROL-XL) extended release tablet 25 mg, 25 mg, oral, Daily, Seamus Pimentel Jr., MD, 25 mg at 11/26/[address] (PROTONIX) extended release tablet 40 mg, 40 mg, oral, Daily, Janice Molina MD, 40 mg at 11/26/23830 polyethylene glycol (MIRALAX) packet 17 g, 17 [...] Min: 95 % Max: 100 % Vitals: 11/26/237 BP: 158/46 Pulse: 51 Resp: Temp: SpO2: [...] palpable bilaterally Labs/Imaging: Recent Labs Lab Units 11/25/23190811/25/23 0647 11/24/23 0949 WBC K/cumm 3.4* 3.8 3.2* HEMOGLOBIN g/dL 8.5* 8.4* 8.8* HEMATOCRIT % 26.7* 26.2* 27.6* PLATELETS K/cumm 213 198 191 Recent Labs Lab Units 11/25/23190811/25/23 0647 11/24/23 0949 SODIUM mmol/L 135 135 135 POTASSIUM PLASMA mmol/L 3.9 4.0 4.0 CHLORIDE mmol/L 103 102 103 CO2 mmol/L 23 20* 23 BUN SERUM mg/dL 13 11 12 CREATININE mg/dL 1.22* 1.18* 1.29* GLUCOSE mg/dL 99 84 106 CALCIUM mg/dL 9.8 9.8 9.7 Recent Labs Lab Units 11/25/232125 PROTIME (PT) sec 11.8 INR 1.04 XR [...] 02/2023 on Eliquis (last taken 11/23/23), CAD, CA in 2012 s/p CABG, HTN, HLD, apical [...] pain improves post procedure Please call the [facility] Inpatient Consult Phone with any questions or concerns regarding this patient. Carmen West MD Resident Physician General Surgery [facility] Inpatient Consult [facility] ED Consult [facility] Outpatient Clinic - option 1 Cosigned [...] Section of Acute and Critical Care Surgery [facility] * Janice Molina MD [...] elevated transaminases #Afib on Eliquis [facility]. History of afib with difficulty with rate control requiring cardioversion. Home regimen: amiodarone 200mg daily, metoprolol XL 25mg daily, eliquis 5mg BID. PLAN - continue home amiodarone 200mg daily - continue home metoprolol XL 25mg daily - hold home eliquis for procedure #Chronic Normocytic Anemia Follows with [facility]. Anemia thought to be due to [...] Afib s/p cardioversion 02/2023 on Eliquis, CAD, CA in 2012 s/p CABG, apical variant HCM, CKD III, and chronic anemia who presents with nausea/vomiting and leg swelling. Objective Past Medical History: Diagnosis Date Acid reflux Heart murmur High cholesterol History of blood clots 1960s in leg as teenager - had phlebitis History of CA (myocardial infarction) 2012 History of vertebral fracture 2017 HTN (hypertension) IBS (irritable bowel syndrome) Vertigo Past Surgical History: Procedure Laterality Date CARDIOVERSION 03/2023 COLON SURGERY 1992 Repair burst colon CORONARY ARTERY BYPASS GRAFT 2013 Double by-pass - [facility] FLUORO GUIDED INJECTION HIP RIGHT Right 05/16/2022 FLUORO GUIDED INJECTION HIP RIGHT Right 08/15/2022 FLUORO GUIDED INJECTION HIP RIGHT Right 12/10/2022 FLUORO GUIDED INJECTION HIP RIGHT Right 05/13/[address] James ([place], [place]) TOTAL KNEE ARTHROPLASTY Right 2017 Social [...] BUN SERUM mg/dL 13 CREATININE mg/dL 1.22* [id number] mL/min/1.73 m2 46* CALCIUM mg/dL 9.8 ALBUMIN [...] reports decreased po intake x 4 days [employer]. Reports 10# recent wt loss. Per chart review, pt has lost 8# x 8 months (not significant). Pt declined all oral nutrition supplements. 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 Reports good dentition. Pt reports when things [...] as teenager - had phlebitis History of CA (myocardial infarction) 2012 History of vertebral fracture 2017 HTN (hypertension) IBS (irritable bowel syndrome) Vertigo Past Surgical History: Procedure Laterality Date CARDIOVERSION 03/2023 COLON SURGERY 1992 Repair burst colon CORONARY ARTERY BYPASS GRAFT 2012 Double by-pass - [facility] FLUORO GUIDED INJECTION HIP RIGHT Right 05/16/2022 FLUORO GUIDED INJECTION HIP RIGHT Right 08/15/2022 FLUORO GUIDED INJECTION HIP RIGHT Right 12/10/2022 FLUORO GUIDED INJECTION HIP RIGHT Right 05/13/[address] James ([place], [place]) TOTAL KNEE ARTHROPLASTY Right 2017 (Not [...] possible procedure #Chronic Normocytic Anemia Follows with [facility] Hematology. Anemia thought to be due to [...] Female Attending MD: Heydi Fenton M.D. Room: [facility] ENDOSCOPY ROOM 2 Note Status: Finalized Procedure: Upper EUS Indications: Obstruction of bile duct on CT with stone, Elevated liver enzymes. AST/ALT elevation, normal bilirubin. Referring MD: Cristian Brantley M.D. Providers: Heydi [...] obtained.The Olympus curved linear array therapeutic endosonoscope [id number] was introduced through the mouth, and advanced [...] Female Attending MD: Heydi Fenton M.D. Room: [facility] ENDOSCOPY ROOM 2 Note Status: Finalized Procedure: ERCP Indications: Bile duct stone seen on EUS and on CTAP, normal bilirubin Referring MD: Cristian Brantley M.D. Providers: Heydi Fenton M.D., Marco Antonio Gusman M.D. Medicines: Monitored Anesthesia Care, Indomethacin 100 mg NH Complications: No immediate complications. Estimated Blood Loss: [...] discussed and informed consent was obtained. The [id number] Duodenoscope was introduced through the mouth, and used to inject contrast into and used to inject contrast into the bile duct. The ERCP was accomplished without difficulty. The patient tolerated the procedure well. Findings: A pest controller film of the abdomen was obtained. Surgical [...] the days following this procedure please call [phone]. After hours and evenings please call [phone] and speak to the GI fellow proration clerk. Please tell the fellow that Dr. Shid your procedure and that you were instructed [...] from the original note were not included. [facility] Team A Trauma Surgery History and Physical Date of Evaluation: 11/25/23 Sex: female Date of : 1945 Consulting provider: Consult to General Surgery Consult performed by: Carmencita Small MD Consult ordered by: Elio Lewis MD Trauma Level Consult Assessment/Plan: Tiera Lobato is a 78 y.o. female with PMH of IBS, Afib s/p cardioversion 02/2023 on Eliquis (last taken 11/23/23), CAD, CA in 2012 s/p CABG, HTN, HLD, apical [...] Stable Disposition of Patient: will follow on [facility] Consult service FOLLOWUP REQUIRED: Patient should call [phone] - option 1 after discharge during normal business hours (M-F) to schedule a follow-up appointment in 1 week at the Acute and Critical Care Surgery Clinic in the 3rd floor of the [place] [facility] Trauma Surgery November 25, 2023 3:51 PM [facility] ED Consult [facility] Outpatient Clinic - option 1 Discussed [...] coming to the ED via EMS from [facility] in [facility]. Patient has had diarrhea and vomiting for the past 5 days. HPI: Tiera Lobato is a 78 y.o. female with PMH of IBS, Afib s/p cardioversion 02/2023 on Eliquis (last taken 11/23/23), CAD, CA in 2012 s/p CABG, HTN, HLD, apical variant HCM, CKD III not on HD, and chronic anemia who presented yesterday to ED for intractable nausea, vomiting found to have non-obstructive CBD stone. Additionally found to have R leg swelling that developed after fall 6/, with initial concern by PCP to be [...] RLE hematoma, seen on US to be [id number] large. Pt reports it has decreased in [...] as teenager - had phlebitis History of CA (myocardial infarction) 2012 History of vertebral fracture 2017 HTN (hypertension) IBS (irritable bowel syndrome) Vertigo Hospitalized: none Surgical History: Past Surgical History: Procedure Laterality Date CARDIOVERSION 03/2023 COLON SURGERY 1992 Repair burst colon CORONARY ARTERY BYPASS GRAFT 2012 Double by-pass - [facility] FLUORO GUIDED INJECTION HIP RIGHT Right 05/16/2022 FLUORO GUIDED INJECTION HIP RIGHT Right 08/15/2022 FLUORO GUIDED INJECTION HIP RIGHT Right 12/10/2022 FLUORO GUIDED INJECTION HIP RIGHT Right 05/13/[address] Jamse ([place], [place]) TOTAL KNEE ARTHROPLASTY Right 2018 Family [...] Binge Drinking: Not on file Last Meal: 11/24 AM SURVEY Primary Assessment Eye Opening: Spontaneous Best Verbal Response: Oriented Best Motor Response: Obeys commands Buford Coma Scale Score: 15 Resuscitation Phase & [...] with an evolving hematoma. Dictated by: Roberto aCmpbell MD The radiology attending physician has personally reviewed this study, and had reviewed and/or edited this written report and agrees with it. Electronically signed by:Va Heranndez M.D. CT Abdomen Pelvis W Contrast Result [...] and apply compression dressing. Karen Hawk MD [facility] Acute and Critical Care Surgery [facility] * Melisa Pritchett MD - 11/24/2023 3:32 PM CDTAssociated Order(s): IP CONSULT TO GASTROENTEROLOGY Biliary Initial Consult Chief complaint: nausea and vomiting Reason for consult: ERCP Requesting provider: Bolivar Llamas MD HPI: This is a 78 y.o. female with PMH IBS, Afib s/p cardioversion 02/2023 on Eliquis, CAD, CA in 2013 s/p CABG, apical variant HCM, CKD III [...] as teenager - had phlebitis History of CA (myocardial infarction) 2012 History of vertebral fracture 2017 HTN (hypertension) IBS (irritable bowel syndrome) Vertigo Past Surgical History: Procedure Laterality Date CARDIOVERSION 03/2023 COLON SURGERY 1992 Repair burst colon CORONARY ARTERY BYPASS GRAFT 2013 Double by-pass - [facility] FLUORO GUIDED INJECTION HIP RIGHT Right 05/16/2022 FLUORO GUIDED INJECTION HIP RIGHT Right 08/15/2022 FLUORO GUIDED INJECTION HIP RIGHT Right 12/10/2022 FLUORO GUIDED INJECTION HIP RIGHT Right 05/13/[address] James ([place], [place]) TOTAL KNEE ARTHROPLASTY Right 2018 (Not in a hospital admission) Allergies Allergen [...] Afib s/p cardioversion 02/2023 on Eliquis, CAD, CA in 2012 s/p CABG, apical variant HCM, [...] 12:36 PM CDT Attempted to call report [facility] unable to reach nurse. left to call [...] Afib s/p cardioversion 02/2023 on Eliquis, CAD, CA in 2012 s/p CABG, HTN HLD, apical [...] changes in urination. History provided by: Patient spanish interpreter used: No Patient History: Patient Active Problem List Diagnosis Date Noted ??? Iron deficiency anemia, unspecified 10/05/2023 ??? NSVT (nonsustained ventricular tachycardia) ([facility]) 08/20/2023 ??? A-fib (CMS/HCC) ([facility]) 02/17/2023 ??? Atrial fibrillation (CMS/HCC) ([facility]) 01/13/2023 ??? Apical variant hypertrophic cardiomyopathy (HCC) 12/05/2022 ??? Paroxysmal atrial fibrillation (CMS/HCC) ([facility]) 12/05/2022 ??? Right hip pain 11/22/2021 ??? Other osteoporosis without current pathological fracture 03/07/2021 ??? Lumbar stenosis with neurogenic claudication 09/29/2020 ??? History of CA (myocardial infarction) 12/10/2017 ??? Primary hypertension 11/06/2012 ??? Coronary artery disease involving elim ira coronary artery of elim ira heart without angina pectoris 09/23/2012 ??? Hx of CABG 09/23/2012 Past Medical History: Diagnosis Date ??? Acid reflux ??? Heart murmur ??? High cholesterol ??? History of blood clots 1960s in leg as teenager - had phlebitis ??? History of CA (myocardial infarction) 2012 ??? History of vertebral [...] Right 05/13/2023 ??? MICRODISCECTOMY 1998 Dr. James ([place], [place]) ??? TOTAL KNEE ARTHROPLASTY Right 2018 [...] scabs Neurological: Mental Status: She is alert. MDM Medical Decision Making 78 yo female here [...] ERCP By: Bolivar Llamas MD Time: 11/23 1525 Comment: GI consulted re: cherrie, will evaluate patient By: Bolivar Llmaas MD Time: 11/23 2312 Comment: Attending signout: 78 yoF with hx of IBS, afib on eliquis, CKD, leg wound on abx here withN/V/D. LFTs elevated and found to have CBD stone. No fever, chills. GI to see in AM. By: Baylee Pepper MD Time: 11/24 1110 Value: C. diff result: Negative, free toxin Comment: (Reviewed) By: aNllely Johns MD No diagnosis found. Kassidy Cunningham [...] of arrival: Ambulance Comments: Esa Wood RN 11/24/23 0925 * Bolivar Grant RN - 11/24/2023 8:05 AM CDT Patient coming to the ED via EMS from [facility] in [facility]. Patient has had diarrhea and vomiting for the past 5 days. documented in this encounter Miscellaneous Notes * Plan of Care - Suraj Mendes RN - 12/03/2023 12:22 PM CDT 12/03/23 1222 Discharge Summary Discharge Disposition Assisted living Specify Facility [facility] Facility Contact Number [phone] Equipment/Provider Needs No Home Needs Identified Anticipated [...] discharge needs arise, please contact the covering trimming caser. Suraj Mendes RN Case Manager * Plan of Care - Suraj Mendes RN - 12/03/2023 12:21 PM CDT 12/03/23 1221 Communications Important Message from Medicare notice given to patient? Yes * Plan of Care - Thuy Moore RN - 12/03/2023 1:49 AM CDT Problem: Fall Risk Goal: Ability to state ways to decrease the risk of falls will improve Outcome: Progressing Flowsheets (Taken 12/03/202399) Ability to state ways to decrease the risk of falls will improve: Teach fall prevention measures Goal: Will remain free from falls Outcome: Progressing Flowsheets (Taken 12/03/202399) Will remain free from falls: Assess risk [...] baseline bowel function Outcome: Progressing Flowsheets (Taken 12/03/202399) Maintains or returns to baseline bowel function: Assess bowel function, evaluate bowel sounds and signs of abdominal distention Goal: Maintains adequate nutritional intake Outcome: Progressing Flowsheets (Taken 12/03/202399) Maintains adequate nutritional intake: Monitor percentage of each meal consumed Goal: Will show no signs and symptoms of gastrointestinal bleeding Outcome: Progressing Flowsheets (Taken 12/03/202399) Will show no signs and symptoms of gastrointestinal bleeding: Assess amount, characteristics and/orfrequency of stool Problem: Neurosensory Goal: Achieves stable or improved neurological status Outcome: Progressing Goal: Achieves maximal functionality and self care Outcome: Progressing Flowsheets (Taken 12/03/202399) Achieves maximal functionality and self care: Monitor swallowing and airway patency with patient fatigue and changes in neurological status Goals: Clinical Goals for the Shift: monitor labs/vitals, pain mgmt, promote rest Halfway Patient Centered Goal for Treatment: safe discharge * Plan of Care - Suraj Mendes RN - 12/02/2023 3:14 PM CDT 12/02/23 1514 Discharge Planning Support System Family members Anticipated discharge level of care Assisted living Facility Information and Contact [facility] Progression of Care Update Per Medical Chart/Rounds/IDR: IDR ADD: 12/02 Education Needs Identified (plan): CM sent referrals in [facility] for retirement (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 Anticipate discharge back to [facility] tomorrow F/U Appointments: PCP appt 12/10 Patient's Identified Problem/Goal Problem:?Ensure acute medical needs are met and that patient has a safe discharge plan. Goal:?Secure a discharge plan that patient/family are agreeable with?and ensure patient has continuum of care. Patient and/or family are agreeable with plan. manager grant will continue to follow and assist with discharge planning as needed. If any further discharge needs arise, please contact the covering trimming caser. * Plan of Care - Baylee Andrea [...] - Lab/Radiology/Diagnostic Review: Recent Labs Lab Units 12/01/23220511/29/23 2159 11/28/23 1749 11/27/23 0043 11/25/236 11/25/23 [...] Afib s/p cardioversion 02/2023 on Eliquis, CAD, CA in 2012 s/p CABG, apical variant HCM, [...] hours off anticoagulation as well (last dose 11/23 AM). LFTs downtrending. EUS 11/25 with stone [...] Max: 99 % Most Recent : Vitals: 06/17/24 0847 BP: 138/56 Pulse: 63 Resp: Temp: [...] 2159 11/28/23 1749 11/27/23 2148 11/27/23 0043 11/25/236 11/25/23 1909 WBC K/cumm 4.2 3.7* 3.8 [...] Afib s/p cardioversion 02/2023 on Eliquis, CAD, CA in 2012 s/p CABG, apical variant HCM, [...] hours off anticoagulation as well (last dose 11/23 AM). LFTs downtrending. EUS 11/25 with stone [...] Pritchett MD * Plan of Care - Tracy Tavarez - 11/30/2023 9:00 PM CDT Problem: Fall [...] 1749 11/27/23 2148 11/27/23 1441 11/27/23 0043 11/25/236 11/25/23 1909 WBC K/cumm 3.7* 3.8 -- [...] Afib s/p cardioversion 02/2023 on Eliquis, CAD, CA in 2013 s/p CABG, apical variant HCM, CKD III [...] will improve Outcome: Progressing Flowsheets (Taken 11/29/2023 0900) Ability to state ways to decrease the [...] level of function Outcome: Progressing Flowsheets (Taken 11/29/2023899) Return mobility to safest level of function: [...] Problem(s): Iron deficiency anemia, unspecified [facility]. Anemia thought to be due to [...] Associated Problem(s): A-fib (CMS/HCC) (HCC) Follows with [facility] Cardiology. History of afib with difficulty with [...] on AC, ApicalVariant HCM, CAD (Dr. Stafford; CA 08/2012 s/p CABG (LAWSON to LAD, SVG [...] is able tolerate low fat diet.Repeat E POST SECONDARY PROFESSIONAL in 6-8 weeks for stent removal, will [...] moderate compression #Afib on Eliquis [facility]. History of afib with difficulty with rate control requiring cardioversion. Home regimen: amiodarone 200mg daily, metoprolol XL 25mg daily, eliquis 5mg BID. Continue home amiodarone 200mg daily and home metoprolol XL 25mg daily.Restart eliquis 5mg BID. #Chronic Normocytic Anemia Follows [facility]. Anemia thought to be due to [...] AC, Apical Variant HCM, CAD (Dr. Stafford; CA 08/2012 s/p CABG (LAWSON to LAD, SVG to OM), HTN, CKD stage 3b (b/l cr 1.2 -1.4), and Vertigo who was admitted with h epatitis/cholodocholithaisis on 11/24/23 and now being transferred to hospitalist after prior roomate being ruled out for TB. History has been obtained from the patient and indepednent review of our multiple records systems including [employer] Below is a sumamry of above sources. [...] on 11/28/23 and lipase demonstrated an elevation [id number]. She was made NPO and started on [...] monitor CBC #Chronic Normocytic Anemia [facility]. Anemia thought to be due to [...] osteoperosis. * Plan of Care - Eda Ann RN - 11/28/2023 10:44 PM CDT Problem: [...] comfort Summary: * Plan of Emerita - Marilee Garcia RN - 11/28/2023 12:07 PM CDT [...] Afib s/p cardioversion 02/2023 on Eliquis, CAD, CA in 2012 s/p CABG, apical variant HCM, [...] hours off anticoagulation as well (last dose 11/23 AM). LFTs downtrending. EUS 11/25 with stone [...] injury from falls Outcome: Progressing Flowsheets (Taken 11/27/2023124) Will remain free from injury from falls: [...] Afib s/p cardioversion 02/2023 on Eliquis, CAD, CA in 2012 s/p CABG, apical variant HCM, CKD III, and chronic anemia who presents with nausea/vomiting and leg swelling. (H&P) MD Tracy: #Afib on Eliquis Follows with [facility] Cardiology. History of afib with difficulty with [...] specify below Additional Provider Response: References: Source: [facility], 2018, page 3. From the ICD-10-CM Coding [...] medical record. Estelle Clark RN, BSN Clinical Welding Setter [email or web address] [phone] * Initial Assessments - Marce Borwne RN - 11/26/2023 10:10 AM CDT CM Initial Assessment Interview Note Information Obtained From: Patient (11/26/231006) Admission Source: From her assisted living facility Impression: 78 yr. Old female admitted for 5 days of abd. Pain, nausea, vomitting. CT on11/23 showeda small stone in the common bile duct. Pending ERCP on Fri. 11/25 PMH of A-fib with cardioversion on 02/2023 On Eliqu. Plan Includes: Return to home once medically stable. Primary Source of Transportation: Does the patient need discharge transport arranged?: No (11/26/23 1007) Health Insurance Coverage: [facility]. Prescription Coverage: not sure Pharmacy: [facility] [address] [address] Primary Care Provider: Cristian Ling MD- verified. [...] Yes, patient can return Care Facility Name: [facility] Facility contact name and number:: [facility] / [phone] Steps in home?: No steps inside or outside Medication management: Independent (11/25/231812) Potential discharge needs include: manager grant will follow for post acute discharge needs such as therapy, nursing, medical equipment or agency referrals as indicated by the care team. OP Services: none Dialysis: no Behavioral Health Services: Behavioral Health Services: No (11/26/23 1007) Anticipated Level of Care: Anticipated discharge level of care: Assisted living (11/26/23 1007) Patient expects to be Discharged to: Assisted Living, (11/25/231812) Additional Information: Confirmed address and phone to [email or web address]. Patient independent in ADLS. Lives in Assisted [...] Collaboration with Patient, Provider, Direct Care Nurse, Counter Clerk [employer], and other members of theHealth Care Team to assure needed interventions completed. 2. Return patient to optimal level of self-care post discharge. 3. Per Diem Physical Therapist Assistant will follow for Discharge Planning - interventions [...] note. By: Elisha Jose MD Time: 11/23 7178 Comment: Bedside ultrasound shows concern for infected hematoma versus abscess, approx 2cm in depthand 4cm in diameter, with cobblestoning surrounding. By: Elisha Jose MD Time: 11/23 1511 Comment: Hx IBS, a-fib Eliquis P/w N/V/D in setting of Abx for leg wound Admit Med elevated LFTs Will d/w GI re: ERCP By: Bolivar Llamas MD Time: 11/23 1525 Comment: GI consulted re: stone, will evaluate [...] Afib s/p cardioversion 02/2023 on Eliquis, CAD, CA in 2012 s/p CABG, apical variant HCM, [...] - For patients in ED and on [facility], please contact [phone] - For patients on [facility], please contact [phone] * ED Re-evaluation Note - Nallely Johns [...] Afib s/p cardioversion 02/2023 on Eliquis, CAD, CA in 2012 s/p CABG, HTN HLD, apical [...] ERCP By: Bolivar Llamas MD Time: 11/23 1525 Comment: GI consulted re: stone, will evaluate patient By: Bolivar Llamas MD Time: 11/23 2772 Comment: Attending signout: 78 yoF with hx [...] Afib s/p cardioversion 02/2023 on Eliquis, CAD, CA in 2012 s/p CABG, HTN HLD, apical [...] ERCP By: Bolivar Llamas MD Time: 11/23 1525 Comment: GI consulted re: cherrie, will evaluate [...] Sean Lamb, MD Emergency Medicine, PGY-3 Pager: [phone] Bolivar Llamas MD Resident 11/25/23 1147 documented in this encounter Plan of Treatment [...] 5:49 PM CDT DIFFERENTIAL AUTO Routine 11/28/2023 5: 49 PM CDT CBC WITH AUTO DIFFERENTIAL Routine [...] Torre MD LAB BLOOD ORDERABLES Final Result [facility] [place] [address] * Type and screen (12/01/2023 10:06 PM CDT) ABO Rh B Negative Cheri, indirect Negative [facility] Blood 12/01/2023 10:0 6 PM CDT 12/01/2023 10:[address] [facility] - 12/01/2023 11:29 PM CDT Has the patient had Daratumumab or Isatuximab in the past 6 months?->Unknown Oscar De La Torre MD LAB BLOOD BANK TEST ORDERAB LES Final Result [facility] [place] [address] * (ABNORMAL) Comprehensive metabolic panel (12/01/2023 10:06 PM CDT) Sodium 139 135 - 145 mmol/L Potassium, pl 3.7 3.3 - 4.9 mmol/L [facility] Chloride 104 97 - 110 mmol/L [facility] CO2 26 22 - 32 mmol/L [facility] Anion gap 9 2 - 15 mmol/L [facility] BUN 7 6 - 25 mg/dL [facility] Creatinine 0.97 0.60 - 1.10 mg/dL [facility] Glucose 93 70 - 199 mg/dL [facility] Comment: Interpretive Data Fasting glucose [...] 2022. Calcium 9.2 8.5 - 10.3 mg/dL [facility] Bilirubin, total 0.6 0.1 - 1.2 mg/dL [facility] Protein, pl 5.8(L) 6.5 - 8.5 g/dL [facility] Albumin 3.2(L) 3.5 - 5.0 g/dL [facility] Alk phos 121 40 - 130 Units/L [facility] ALT 195(H) 7 - 45 Units/L [facility] AST 88(H) 10 - 45 Units/L [facility] Blood 12/01/2023 10:0 6 PM CDT 12/01/2023 10:38 PM CDT Oscar De La Torre MD LAB BLOOD ORDERABLES Final Result Performing Organization Address [facility] Co de Phone Number [facility] [place] [address] * (ABNORMAL) CBC without differential (12/01/2023 10:06 PM CDT) WBC 4.0 3.8 - 9.9 K/cumm Hgb 8.6(L) 11.9 - 15.5 g/dL [facility] Hct 27.9(L) 35.6 - 45.5 % [facility] Plt 216 150 - 400 K/cumm [facility] MPV 12.6(H) 9.1 - 12.3 fL [facility] RBC 3.07(L) 3.90 - 5.20 M/cumm [facility] MCV 90.9 81.3 - 96.4 fL [facility] MCH 28.0 27.1 - 33.3 pg [facility] MCHC 30.8(L) 32.3 - 35.7 g/dL [facility] RDW CV 21.3(H) 11.1 - 14.9 % [facility] RDW SD 69.9(H) 35.7 - 48.1 fL [facility] NRBC abs 0.00 0.00 - 0.01 K/cumm [facility] Blood 12/01/2023 10:0 6 PM CDT 12/01/2023 10:38 PM CDT Oscar De La Torre MD LAB BLOOD ORDERABLES Final Result Performing Organization Address [facility]/ZIP Co de Phone Number [facility] [place] [address] * eGFR (11/29/2023 9:59 PM CDT) eGFR [...] Torre MD LAB BLOOD ORDERABLES Final Result [facility] Department [place] [address] * (ABNORMAL) Differential, auto (11/29/2023 9:59 PM CDT) Neutrophil abs 2.7 1.5 - 6.5 K/cumm Imm gran abs 0.0 0.0 - 0.1 K/cumm [facility] Lymphocyte abs 0.7(L) 0.8 - 3.3 K/cumm [facility] Monocyte abs 0.6 0.2 - 0.8 K/cumm [facility] Eosinophil abs 0.1 0.0 - 0.5 K/cumm [facility] Basophil abs 0.0 0.0 - 0.1 K/cumm [facility] Neutrophil pct 64.1 % [facility] Comment: Interpretive Data Percent cell count reference ranges are not reported, since discordance with absolute values may lead to misinterpretation of CBC data. Current Interpretive Data was last revised on 2017. Imm gran pct 0.2 % [facility] Comment: Interpretive Data Percent cell count reference ranges are not reported, since discordance with absolute values may lead to misinterpretation of CBC data. Current Interpretive Data was last revised on 2017. Lymphocyte pct 17.6 % [facility] Comment: Interpretive Data Percent cell count reference ranges are not reported, since discordance with absolute values may lead to misinterpretation of CBC data. Current Interpretive Data was last revised on 2017. Monocyte pct 15.4 % [facility] Comment: Interpretive Data Percent cell count reference ranges are not reported, since discordance with absolute values may lead to misinterpretation of CBC data. Current Interpretive Data was last revised on 2017. Eosinophil pct 1.7 % [facility] Comment: Interpretive Data Percent cell count reference ranges are not reported, since discordance with absolute values may lead to misinterpretation of CBC data. Current Interpretive Data was last revised on 2017. Basophil pct 1.0 % [facility] Comment: Interpretive Data Percent cell count reference ranges are not reported, since discordance with absolute values may lead to misinterpretation of CBC data. Current Interpretive Data was last revised on 2017. Blood 11/29/2023 9:59 PM CDT 11/29/2023 10:35 PM CDT us Oscar De La Torre MD LAB BLOOD ORDERABLES Final Result [facility] [place] [address] * (ABNORMAL) Comprehensive metabolic panel (11/29/2023 9:59 PM CDT) Sodium 136 135 - 145 mmol/L Potassium, pl 3.6 3.3 - 4.9 mmol/L [facility] Chloride 103 97 - 110 mmol/L [facility] CO2 24 22 - 32 mmol/L [facility] Anion gap 9 2 - 15 mmol/L [facility] BUN 9 6 - 25 mg/dL [facility] Creatinine 0.88 0.60 - 1.10 mg/dL [facility] Glucose 88 70 - 199 mg/dL [facility] Comment: Interpretive Data Fasting glucose [...] 2022. Calcium 8.6 8.5 - 10.3 mg/dL [facility] Bilirubin, total 0.7 0.1 - 1.2 mg/dL [facility] Protein, pl 5.8(L) 6.5 - 8.5 g/dL [facility] Albumin 3.1(L) 3.5 - 5.0 g/dL [facility] Alk phos 123 40 - 130 Units/L [facility] ALT 263(H) 7 - 45 Units/L [facility] AST 104(H) 10 - 45 Units/L [facility] Blood 11/29/2023 9:59 PM CDT 11/29/2023 10:34 PM CDT us Oscar De La Torre MD LAB BLOOD ORDERABLES Final Result [facility] [place] [address] * (ABNORMAL) CBC with auto differential (11/29/2023 9:59 PM CDT) [facility] WBC 4.2 3.8 - 9.9 K/cumm Hgb 8.5(L) 11.9 - 15.5 g/dL [facility] Hct 26.3(L) 35.6 - 45.5 % [facility] Plt 200 150 - 400 K/cumm [facility] MPV 12.3 9.1 - 12.3 fL [facility] RBC 2.96(L) 3.90 - 5.20 M/cumm [facility] MCV 88.9 81.3 - 96.4 fL [facility] MCH 28.7 27.1 - 33.3 pg [facility] MCHC 32.3 32.3 - 35.7 g/dL [facility] RDW CV 21.3(H) 11.1 - 14.9 % [facility] RDW SD 68.0(H) 35.7 - 48.1 fL [facility] NRBC abs 0.00 0.00 - 0.01 K/cumm [facility] Blood 11/29/2023 9:59 PM CDT 11/29/2023 10:35 PM CDT Oscar De La Torre MD LAB BLOOD ORDERABLES Final Result [facility] [place] [address] * (ABNORMAL) eGFR (11/28/2023 5:49 PM CDT) [facility] eGFR [...] MD LAB BLOOD ORDERABLES Final R esult [facility] [place] [address] * (ABNORMAL) Differential, auto (11/28/2023 5:49 PM CDT) Pathologist [facility] Neutrophil abs 2.6 1.5 - 6.5 K/cumm Imm gran abs 0.0 0.0 - 0.1 K/cumm [facility] Lymphocyte abs 0.6(L) 0.8 - 3.3 K/cumm [facility] Monocyte abs 0.4 0.2 - 0.8 K/cumm [facility] Eosinophil abs 0.0 0.0 - 0.5 K/cumm [facility] Basophil abs 0.0 0.0 - 0.1 K/cumm [facility] Neutrophil pct 70.3 % [facility] Comment: Interpretive Data Percent cell count reference ranges are not reported, since discordance with absolute values may lead to misinterpretation of CBC data. Current Interpretive Data was last revised on 2017. Imm gran pct 0.3 % [facility] Comment: Interpretive Data Percent cell count reference ranges are not reported, since discordance with absolute values may lead to misinterpretation of CBC data. Current Interpretive Data was last revised on 2017. Lymphocyte pct 15.8 % [facility] Comment: Interpretive Data Percent cell count reference ranges are not reported, since discordance with absolute values may lead to misinterpretation of CBC data. Current Interpretive Data was last revised on 2017. Monocyte pct 11.7 % [facility] Comment: Interpretive Data Percent cell count reference ranges are not reported, since discordance with absolute values may lead to misinterpretation of CBC data. Current Interpretive Data was last revised on 2017. Eosinophil pct 1.1 % [facility] Comment: Interpretive Data Percent cell count reference ranges are not reported, since discordance with absolute values may lead to misinterpretation of CBC data. Current Interpretive Data was last revised on 2017. Basophil pct 0.8 % [facility] Comment: Interpretive Data Percent cell count reference ranges are not reported, since discordance with absolute values may lead to misinterpretation of CBC data. Current Interpretive Data was last revised on 2017. Blood 11/28/2023 5:49 PM CDT 11/28/2023 6:04 PM CDT us Jose Roberto Hernandez MD LAB BLOOD ORDERABLES Final R esult Performing Organization Address City/[facility]/ZIP Co de Phone Number [facility] Department [place] [place] [address] * Magnesium (11/28/2023 5:49 PM CDT) Magnesium 2.1 1.4 - 2.5 mg/dL Blood 11/28/2023 5:49 PM CDT 11/28/2023 6:04 PM CDT us Jose Roberto Hernandez MD LAB BLOOD ORDERABLES Final R esult Performing Organization Address City/[facility]/ZIP Co de Phone Number [facility] Department [place] [address] * (ABNORMAL) Comprehensive metabolic panel (11/28/2023 5:49 PM CDT) Sodium 138 135 - 145 mmol/L Potassium, pl 3.9 3.3 - 4.9 mmol/L [facility] Chloride 104 97 - 110 mmol/L [facility] CO2 23 22 - 32 mmol/L [facility] Anion gap 11 2 - 15 mmol/L [facility] BUN 18 6 - 25 mg/dL [facility] Creatinine 1.18(H) 0.60 - 1.10 mg/dL [facility] Glucose 87 70 - 199 mg/dL [facility] Comment: Interpretive Data Fasting glucose [...] 2022. Calcium 8.8 8.5 - 10.3 mg/dL [facility] Bilirubin, total 0.8 0.1 - 1.2 mg/dL [facility] Protein, pl 5.9(L) 6.5 - 8.5 g/dL [facility] Albumin 3.4(L) 3.5 - 5.0 g/dL [facility] Alk phos 133(H) 40 - 130 Units/L [facility] ALT 338(H) 7 - 45 Units/L [facility] AST 114(H) 10 - 45 Units/L [facility] Blood 11/28/2023 5:49 PM CDT 11/28/2023 6:04 PM CDT us Jose Roberto Hernandez MD LAB BLOOD ORDERABLES Final R esult [facility] Department [place] [address] * (ABNORMAL) CBC with auto differential (11/28/2023 5:49 PM CDT) Pathologist [facility] WBC 3.7(L) 3.8 - 9.9 K/cumm Hgb 8.0(L) 11.9 - 15.5 g/dL [facility] Hct 25.5(L) 35.6 - 45.5 % [facility] Plt 208 150 - 400 K/cumm [facility] MPV 11.6 9.1 - 12.3 fL [facility] RBC 2.85(L) 3.90 - 5.20 M/cumm [facility] MCV 89.5 81.3 - 96.4 fL [facility] MCH 28.1 27.1 - 33.3 pg [facility] MCHC 31.4(L) 32.3 - 35.7 g/dL [facility] RDW CV 20.9(H) 11.1 - 14.9 % [facility] RDW SD 67.4(H) 35.7 - 48.1 fL [facility] NRBC abs 0.00 0.00 - 0.01 K/cumm [facility] Blood 11/28/2023 5:49 PM CDT 11/28/2023 6:04 PM CDT us Jose Roberto Hernandez MD LAB BLOOD ORDERABLES Final R esult [facility] [place] [address] * Type and screen (11/28/2023 5:49 PM CDT) Pathologist [facility] ABO Rh B Negative Cheri, indirect Negative [facility] Blood 11/28/2023 5:49 PM CDT 11/28/2023 6:02 PM CDT Narrative [facility] - 11/28/2023 7:02 PM CDT Has the patient had Daratumumab or Isatuximab in the past 6 months?->Unknown us Duong Choi MD LAB BLOOD BANK TEST MYRNA FERNANDEZ Final Result Performing Organization Address [facility] Co de Phone Number [facility] [place] [address] * Stool culture Stool Rectum (11/28/2023 6:32 AM CDT) Direct Specimen Exam Shiga Toxin Testing: Antigen detection assay for Shiga-toxin NEGATIVE for Shiga Toxin 1 and Shiga Toxin 2. Report Final Report: No growth of enteric bacterial pathogens [facility] Stool (Rectum) 11/28/2023 6: 32 AM CDT 11/28/2023 7:45 AM CDT Narrative [facility] - 12/02/2023 8:52 AM CDT Testing performed by [facility] ([phone]). Routine stool cultures include procedures to detect Salmonella, Shigella, Edwardsiella, Aeromonas, Pleisiomonas, Campylobacter, Yersinia, E. coli O157, and Shiga-like toxins. ?? Vibrio is cultured only upon special request. ??If Vibrio is suspected, please call the laboratory at [phone]. Interpretive data was last updated October 21, 2016. us Jose Roberto Hernandez MD LAB MICROBIOLOGY - GENERAL O RDERABLES Final Result Performing Organization Address [facility] Co de Phone Number [facility] [place] [address] * (ABNORMAL) eGFR (11/27/2023 9:48 PM CDT) [...] MD LAB BLOOD ORDERABLES Final R esult [facility] Department [place] [address] * Differential, auto (11/27/2023 9:48 PM CDT) Neutrophil abs 2.4 1.5 - 6.5 K/cumm Imm gran abs 0.0 0.0 - 0.1 K/cumm [facility] Lymphocyte abs 0.9 0.8 - 3.3 K/cumm [facility] Monocyte abs 0.5 0.2 - 0.8 K/cumm [facility] Eosinophil abs 0.0 0.0 - 0.5 K/cumm [facility] Basophil abs 0.0 0.0 - 0.1 K/cumm [facility] Neutrophil pct 63.0 % [facility] Comment: Interpretive Data Percent cell count reference ranges are not reported, since discordance with absolute values may lead to misinterpretation of CBC data. Current Interpretive Data was last revised on 2017. Imm gran pct 0.3 % [facility] Comment: Interpretive Data Percent cell count reference ranges are not reported, since discordance with absolute values may lead to misinterpretation of CBC data. Current Interpretive Data was last revised on 2017. Lymphocyte pct 22.4 % [facility] Comment: Interpretive Data Percent cell count reference ranges are not reported, since discordance with absolute values may lead to misinterpretation of CBC data. Current Interpretive Data was last revised on 2017. Monocyte pct 12.4 % [facility] Comment: Interpretive Data Percent cell count reference ranges are not reported, since discordance with absolute values may lead to misinterpretation of CBC data. Current Interpretive Data was last revised on 2017. Eosinophil pct 1.1 % [facility] Comment: Interpretive Data Percent cell count reference ranges are not reported, since discordance with absolute values may lead to misinterpretation of CBC data. Current Interpretive Data was last revised on 2017. Basophil pct 0.8 % [facility] Comment: Interpretive Data Percent cell count reference ranges are not reported, since discordance with absolute values may lead to misinterpretation of CBC data. Current Interpretive Data was last revised on 2017. Blood 11/27/2023 9:48 PM CDT 11/27/2023 10:36 PM CDT us Jose Roberto Hernandez MD LAB BLOOD ORDERABLES Final R bailey Performing Organization Address City/[facility]/ZIP Co de Phone Number [facility] Department [place] [address] * Magnesium (11/27/2023 9:48 PM CDT) Magnesium 1.9 1.4 - 2.5 mg/dL Blood 11/27/2023 9:48 PM CDT 11/27/2023 10:37 PM CDT us Jose Roberto Hernandez MD LAB BLOOD ORDERABLES Final R esult [facility] Department [place] [address] * (ABNORMAL) Comprehensive metabolic panel (11/27/2023 9:48 PM CDT) Sodium 137 135 - 145 mmol/L Potassium, pl 4.0 3.3 - 4.9 mmol/L [facility] Chloride 103 97 - 110 mmol/L [facility] CO2 23 22 - 32 mmol/L [facility] Anion gap 11 2 - 15 mmol/L [facility] BUN 20 6 - 25 mg/dL [facility] Creatinine 1.23(H) 0.60 - 1.10 mg/dL [facility] Glucose 93 70 - 199 mg/dL [facility] Comment: Interpretive Data Fasting glucose [...] 2022. Calcium 9.3 8.5 - 10.3 mg/dL [facility] Bilirubin, total 0.9 0.1 - 1.2 mg/dL [facility] Protein, pl 6.2(L) 6.5 - 8.5 g/dL [facility] Albumin 3.5 3.5 - 5.0 g/dL [facility] Alk phos 143(H) 40 - 130 Units/L [facility] ALT 417(H) 7 - 45 Units/L [facility] AST 129(H) 10 - 45 Units/L [facility] Blood 11/27/2023 9:48 PM CDT 11/27/2023 10:37 PM CDT us Jose Roberto Hernandez MD LAB BLOOD ORDERABLES Final R esult [facility] [place] [address] * (ABNORMAL) CBC with auto differential (11/27/2023 9:48 PM CDT) [facility] WBC 3.8 3.8 - 9.9 K/cumm Hgb 8.7(L) 11.9 - 15.5 g/dL [facility] Hct 26.9(L) 35.6 - 45.5 % [facility] Plt 211 150 - 400 K/cumm [facility] MPV 12.3 9.1 - 12.3 fL [facility] RBC 3.04(L) 3.90 - 5.20 M/cumm [facility] MCV 88.5 81.3 - 96.4 fL [facility] MCH 28.6 27.1 - 33.3 pg [facility] MCHC 32.3 32.3 - 35.7 g/dL [facility] RDW CV 20.6(H) 11.1 - 14.9 % [facility] RDW SD 65.7(H) 35.7 - 48.1 fL [facility] NRBC abs 0.00 0.00 - 0.01 K/cumm [facility] Blood 11/27/2023 9:48 PM CDT 11/27/2023 10:36 PM CDT us Jose Roberto Hernandez MD LAB BLOOD ORDERABLES Final R esult [facility] [place] [address] * Infection Prevention Carlos auris PCR, surveillance Axilla/Groin (11/27/2023 4:06 PM CDT) [facility] Carlos auris DNA Not Detected Not Detected [facility] Comment: Interpretive Data Testing performed by [facility] Infectious Disease Laboratory using the [employer] Liaison MDX Carlos auris assay. ??This assay detects DNA from Carlos auris using Real-Time PCR. ??This assay is laboratory developed and is not cleared by the [place] Food and Drug Administration. ??The performance characteristics have been verified by the [facility]ious Disease [facility]. Interpretive data was last reviewed on 10/08/2023 Axilla/Groin 11/27/2023 4:06 PM CDT 11/27/2023 4:20 PM CDT us Diony Lawson MD LAB MICROBIOLOGY - GENERAL OR DERABLES Final Result Performing Organization Address [facility] de Phone Number [facility] [place] [address] [facility] * Critical Result Callback Chemistry (11/27/2023 2:41 PM CDT) Date Notified [id number] Time Notified 1607 [facility] TestName Lipase [facility] Called/Read Back Aysha VICTOR [facility] Credentials RN [facility] Called By glenna VICTOR [facility] Blood 11/27/2023 2:41 PM CDT 11/27/2023 2:55 PM CDT us Duong Choi MD LAB BLOOD ORDERABLES Fin al Result Performing Organization Address [facility] de Phone Number [facility] [place] [address] * (ABNORMAL) eGFR (11/27/2023 2:41 PM CDT) [...] CDT Duong Choi MD LAB BLOOD ORDERABLES [facility] al Result [facility] Department [place] [address] * (ABNORMAL) Comprehensive metabolic panel (11/27/2023 2:41 PM CDT) Sodium 136 135 - 145 mmol/L Potassium, pl 4.3 3.3 - 4.9 mmol/L [facility] Comment:Hemolyzed; Potassium value may be falsely elevated by as much as 0.6-1.0 mmol/L. Suggest redraw and reanalysis. Chloride 104 97 - 110 mmol/L [facility] CO2 22 22 - 32 mmol/L [facility] Anion gap 10 2 - 15 mmol/L [facility] BUN 21 6 - 25 mg/dL [facility] Creatinine 1.23(H) 0.60 - 1.10 mg/dL [facility] Glucose 125 70 - 199 mg/dL [facility] Comment: Interpretive Data Fasting glucose [...] 2022. Calcium 9.3 8.5 - 10.3 mg/dL [facility] Bilirubin, total 0.9 0.1 - 1.2 mg/dL [facility] Protein, pl 6.2(L) 6.5 - 8.5 g/dL [facility] Albumin 3.3(L) 3.5 - 5.0 g/dL [facility] Alk phos 136(H) 40 - 130 Units/L [facility] ALT 424(H) 7 - 45 Units/L [facility] AST 142(H) 10 - 45 Units/L [facility] Comment:Hemolyzed; result ma y be falsely elevated Blood 11/27/2023 2:41 PM CDT 11/27/2023 2:55 PM CDT Duong Choi MD LAB BLOOD ORDERABLES Fin al Result Performing Organization Address City/[facility]/ZIP Co de Phone Number [facility] Department [place] [address] * (ABNORMAL) Lipase (11/27/2023 2:41 PM CDT) Lipase 1,154(C) 10 - 99 Units/L Blood 11/27/2023 2:41 PM CDT 11/27/2023 2:55 PM CDT Duong Choi MD LAB BLOOD ORDERABLES Fin al Result [facility] Department [place] [address] * ECG 12 lead (11/27/2023 11:56 AM CDT) [facility] Ventricular Rate EKG/Min 57 BPM [facility] Atrial Rate 57 BPM [facility] NH-Interval (MSEC) 150 ms [facility] QRS-Interval (MSEC) 110 ms [facility] QT-Interval (MSEC) 448 ms [facility] QTc 436 ms [facility] P [place] 84 degrees [facility] R [place] -21 degrees [facility] T [place] 131 degrees [facility] Diagnosis Sinus bradycardia Left ventricular hypertrophy with [...] GROSS M.D ([id number]) on 11/28/2023 2:45:50 PM [facility] 11/27/2023 11:5 6 AM CDT 11/28/2023 2:45 PM CDT us Duong Choi MD ECG ORDERABLES Final Re sult [facility] * (ABNORMAL) eGFR (11/27/2023 12:43 AM CDT) [facility] eGFR 47(L) >=60 mL/min/1. 73 m2 Comment: [...] MD LAB BLOOD ORDERABLES Final R esult [facility] [place] [address] * Differential, auto (11/27/2023 12:43 AM CDT) Neutrophil abs 3.6 1.5 - 6.5 K/cumm Imm gran abs 0.0 0.0 - 0.1 K/cumm [facility] Lymphocyte abs 0.9 0.8 - 3.3 K/cumm [facility] Monocyte abs 0.7 0.2 - 0.8 K/cumm [facility] Eosinophil abs 0.1 0.0 - 0.5 K/cumm [facility] Basophil abs 0.0 0.0 - 0.1 K/cumm [facility] Neutrophil pct 67.9 % [facility] Comment: Interpretive Data Percent cell count reference ranges are not reported, since discordance with absolute values may lead to misinterpretation of CBC data. Current Interpretive Data was last revised on 2017. Imm gran pct 0.6 % [facility] Comment: Interpretive Data Percent cell count reference ranges are not reported, since discordance with absolute values may lead to misinterpretation of CBC data. Current Interpretive Data was last revised on 2017. Lymphocyte pct 17.4 % [facility] Comment: Interpretive Data Percent cell count reference ranges are not reported, since discordance with absolute values may lead to misinterpretation of CBC data. Current Interpretive Data was last revised on 2017. Monocyte pct 12.6 % [facility] Comment: Interpretive Data Percent cell count reference ranges are not reported, since discordance with absolute values may lead to misinterpretation of CBC data. Current Interpretive Data was last revised on 2017. Eosinophil pct 1.1 % [facility] Comment: Interpretive Data Percent cell count reference ranges are not reported, since discordance with absolute values may lead to misinterpretation of CBC data. Current Interpretive Data was last revised on 2017. Basophil pct 0.4 % [facility] Comment: Interpretive Data Percent cell count reference ranges are not reported, since discordance with absolute values may lead to misinterpretation of CBC data. Current Interpretive Data was last revised on 2017. Blood 11/27/2023 12:4 3 AM CDT 11/27/2023 2:08 AM CDT Jose Roberto Hernandez MD LAB BLOOD ORDERABLES Final R esult Performing Organization Address City/[facility]/ZIP Co de Phone Number [facility] Department [place] [address] * Magnesium (11/27/2023 12:43 AM CDT) [facility] Magnesium 1.8 1.4 - 2.5 mg/dL Blood 11/27/2023 12:4 3 AM CDT 11/27/2023 2:07 AM CDT Jose Roberto Hernandez MD LAB BLOOD ORDERABLES Final R esult [facility] Department [place] [address] * (ABNORMAL) Comprehensive metabolic panel (11/27/2023 12:43 AM CDT) Pathologist [facility] Sodium 136 135 - 145 mmol/L Potassium, pl 3.9 3.3 - 4.9 mmol/L [facility] Chloride 101 97 - 110 mmol/L [facility] CO2 22 22 - 32 mmol/L [facility] Anion gap 13 2 - 15 mmol/L [facility] BUN 16 6 - 25 mg/dL [facility] Creatinine 1.19(H) 0.60 - 1.10 mg/dL [facility] Glucose 92 70 - 199 mg/dL [facility] Comment: Interpretive Data Fasting glucose [...] 2022. Calcium 9.6 8.5 - 10.3 mg/dL [facility] Bilirubin, total 0.9 0.1 - 1.2 mg/dL [facility] Protein, pl 6.4(L) 6.5 - 8.5 g/dL [facility] Albumin 3.7 3.5 - 5.0 g/dL [facility] Alk phos 155(H) 40 - 130 Units/L [facility] ALT 536(H) 7 - 45 Units/L [facility] AST 184(H) 10 - 45 Units/L [facility] Blood 11/27/2023 12:4 3 AM CDT 11/27/2023 2:07 AM CDT us Jose Roberto Hernandez MD LAB BLOOD ORDERABLES Final R esult [facility] [place] [address] * (ABNORMAL) CBC with auto differential (11/27/2023 12:43 AM CDT) WBC 5.2 3.8 - 9.9 K/cumm Hgb 9.3(L) 11.9 - 15.5 g/dL [facility] Hct 28.4(L) 35.6 - 45.5 % [facility] Plt 220 150 - 400 K/cumm [facility] MPV 12.1 9.1 - 12.3 fL [facility] RBC 3.26(L) 3.90 - 5.20 M/cumm [facility] MCV 87.1 81.3 - 96.4 fL [facility] MCH 28.5 27.1 - 33.3 pg [facility] MCHC 32.7 32.3 - 35.7 g/dL [facility] RDW CV 20.2(H) 11.1 - 14.9 % [facility] RDW SD 63.6(H) 35.7 - 48.1 fL [facility] NRBC abs 0.00 0.00 - 0.01 K/cumm [facility] Blood 11/27/2023 12:4 3 AM CDT 11/27/2023 2:08 AM CDT us Jose Roberto Hernandez MD LAB BLOOD ORDERABLES Final R esult [facility] [place] [address] * [place] ERCP Biliary Duct (11/26/2023 5:09 PM CDT) Narrative [facility] - 11/26/2023 5:09 PM CDT The images from this study are not interpreted by Radiology. ??Please refer to the physician's procedure / OR operative note. us Wilfred Hoawrd MD IMG FLUOROSCOPY PROCEDURES Final Result [facility] * Upper EUS (11/26/2023 4:02 PM CDT) Anatomical Region Laterality Modality Other Narrative Procedure Note Heydi Fenton MD - 11/26/2023 4:02 PM CDT [facility] Patient Name: Tiera Lobato Procedure Date: 11/26/2023 4:02 PM Date of : 1945 Admit Type: Inpatient Age: 78 Gender: Female Attending MD: Heydi Fenton M.D. Room: [facility] ENDOSCOPY ROOM 2 Note Status: Finalized Procedure: Upper EUS Indications: Obstruction of bile duct on CT with stone, Elevated liver enzymes. AST/ALT elevation, normalbilirubin. Referring MD: Duong Choi, Cristian Ling M.D. [...] consent was obtained.The Olympuscurved linear array therapeutic [id number] was introduced through the mouth, and advanced [...] 0 Note Initiated On: 11/26/2023 4:02 PM us Heydi Fenton MD ENDOSCOPY PROCEDURES Final Result * ERCP (11/26/2023 4:01 PM CDT) Anatomical Region Laterality Modality Other Narrative Procedure Note Heydi Fenton MD - 11/26/2023 4:01 PM CDT [facility] Patient Name: Tiera Lobato Procedure Date: 11/26/2023 4:01 PM Date of : 1945 Admit Type: Inpatient Age: 78 Gender: Female Attending MD: Heydi Fenton M.D. Room: [facility] ENDOSCOPY ROOM 2 Note Status: Finalized Procedure: ERCP Indications: Bile duct stone seen on EUS and on CTAP, normal bilirubin Referring MD: Duong Choi, Cristian Ling M.D. Providers: Heydi Fenton M.D., Marco Antonio Gusman M.D. Medicines: Monitored Anesthesia Care, Indomethacin 100 mg NH Complications: No immediate complications. Estimated Blood Loss: [...] were discussed and informed consentwas obtained. The [id number] Duodenoscope wasintroduced through the mouth, and used to inject contrast into and used to inject contrast into the bile duct. The ERCP was accomplished without difficulty. Thepatient tolerated the procedure well. Findings: A pest controller film of the abdomen was obtained. Surgical [...] the days following this procedure please call [phone]. After hours and evenings please call [phone] speak to the GI fellow proration clerk. Please tell thefellow that Dr. Fentondid your [...] 0 Note Initiated On: 11/26/2023 4:01 PM us Heydi Fenton MD ENDOSCOPY PROCEDURES Final Result * Infection Prevention Carlos auris PCR, surveillance Axilla/Groin (11/25/2023 9:44 PM CDT) Pathologist [facility] Carlos auris DNA Not Detected Not Detected [facility] Comment: Interpretive Data Testing performed by [facility] Molecular Infectious Disease Laboratory using the WeTag[employer] MDX Carlos auris assay. ??This assay detects DNA from Carlos auris using Real-Time PCR. ??This assay is laboratory developed and is not cleared by the [facility] Food and Drug Administration. ??The performance characteristics have been verified by the [facility] Molecular Infectious Disease Laboratory. Interpretive data was last reviewed on 10/08/2023 Axilla/Groin 11/25/2023 9:44 PM CDT 11/25/2023 10:29 PM CDT Diony Lawson MD LAB MICROBIOLOGY - GENERAL OR DERABLES Final Result Performing Organization Address [facility] Co de Phone Number [facility] [place] [address] [facility] * (ABNORMAL) Ferritin (11/25/2023 9:26 PM CDT) [facility] Ferritin 1,715(H) 13 - 150 ng/mL Blood 11/25/2023 9:26 PM CDT 11/25/2023 9:39 PM CDT Jose Roberto Hernandez MD LAB BLOOD ORDERABLES Final R esult [facility] [place] [address] * Iron profile w/ IBC (11/25/2023 9:26 PM CDT) Pathologist [facility] Iron 72 35 - 145 mcg/dL TIBC See Comment 250 - 400 mcg/dL [facility] Comment:Unable to calculate Transferrin saturation See Comment 20 - 50 % [facility] Comment:Unable to calculate Blood 11/25/2023 9:26 PM CDT 11/25/2023 9:39 PM CDT Jose Roberto Hernandez MD LAB BLOOD ORDERABLES Final R [facility] Performing Organization Address [facility] de Phone Number [facility] [place] [address] * Protime-INR (11/25/2023 9:26 PM CDT) [facility] PT 11.8 10.3 - 13.7 sec INR 1.04 0.90 - 1.20 [facility] Comment: Interpretive data Oral anticoagulant therapeutic ranges: Venous thromboembolism prophylaxis or treatment: 2.0-3.0 CARDIOLOGY Standard range: 2.0-3.0 High-intensity range: 2.5-3.5 Refer to indication-specific guidelines for appropriate target ranges for prosthetic heart valve replacement. Current interpretive data was last revised on 2019. Blood 11/25/2023 9:26 PM CDT 11/25/2023 9:44 PM CDT Jose Roberto Hernandez MD LAB BLOOD ORDERABLES Final R [facility] Performing Organization Address [facility] de Phone Number [facility] Department [place] [employer] [place] [address] * (ABNORMAL) eGFR (11/25/2023 7:09 PM CDT) [facility] eGFR 46(L) >=60 mL/min/1. 73 m2 Comment: [...] MD LAB BLOOD ORDERABLES Fin al Result [facility] Department [place] [address] * Differential, auto (11/25/2023 7:09 PM CDT) Pathologist [facility] Neutrophil abs 2.0 1.5 - 6.5 K/cumm Imm gran abs 0.0 0.0 - 0.1 K/cumm [facility] Lymphocyte abs 0.9 0.8 - 3.3 K/cumm [facility] Monocyte abs 0.5 0.2 - 0.8 K/cumm [facility] Eosinophil abs 0.1 0.0 - 0.5 K/cumm [facility] Basophil abs 0.0 0.0 - 0.1 K/cumm [facility] Neutrophil pct 58.6 % [facility] Comment: Interpretive Data Percent cell count reference ranges are not reported, since discordance with absolute values may lead to misinterpretation of CBC data. Current Interpretive Data was last revised on 2017. Imm gran pct 0.0 % [facility] Comment: Interpretive Data Percent cell count reference ranges are not reported, since discordance with absolute values may lead to misinterpretation of CBC data. Current Interpretive Data was last revised on 2017. Lymphocyte pct 25.4 % [facility] Comment: Interpretive Data Percent cell count reference ranges are not reported, since discordance with absolute values may lead to misinterpretation of CBC data. Current Interpretive Data was last revised on 2017. Monocyte pct 13.4 % [facility] Comment: Interpretive Data Percent cell count reference ranges are not reported, since discordance with absolute values may lead to misinterpretation of CBC data. Current Interpretive Data was last revised on 2017. Eosinophil pct 2.3 % [facility] Comment: Interpretive Data Percent cell count reference ranges are not reported, since discordance with absolute values may lead to misinterpretation of CBC data. Current Interpretive Data was last revised on 2017. Basophil pct 0.3 % [facility] Comment: Interpretive Data Percent cell count reference ranges are not reported, since discordance with absolute values may lead to misinterpretation of CBC data. Current Interpretive Data was last revised on 2017. Blood 11/25/2023 7:09 PM CDT 11/25/2023 7:21 PM CDT us Duong Choi MD LAB BLOOD ORDERABLES Fin al Result [facility] Department [place] [address] * Type and screen (11/25/2023 7:09 PM CDT) ABO Rh B Negative Cheri, indirect Negative [facility] Blood 11/25/2023 7:09 PM CDT 11/25/2023 7:35 PM CDT Narrative [facility] - 11/25/2023 8:27 PM CDT Has the patient had Daratumumab or Isatuximab in the past 6 months?->Unknown Duong Choi MD LAB BLOOD BANK TEST MYRNA FERNANDEZ Final Result Performing Organization Address [facility] de Phone Number [facility] [place] [address] * (ABNORMAL) aPTT (11/25/2023 7:09 PM CDT) [...] ORDERABLES Fin al Result Performing Organization Address [facility] de Phone Number [facility] [place] [address] * Protime-INR (11/25/2023 7:09 PM CDT) PT 13.1 10.3 - 13.7 sec INR 1.15 0.90 - 1.20 [facility] Comment: Interpretive data Oral anticoagulant therapeutic ranges: Venous thromboembolism prophylaxis or treatment: 2.0-3.0 CARDIOLOGY Standard range: 2.0-3.0 High-intensity range: 2.5-3.5 Refer to indication-specific guidelines for appropriate target ranges for prosthetic heart valve replacement. Current interpretive data was last revised on 2019. Blood 11/25/2023 7:09 PM CDT 11/25/2023 7:30 PM CDT Duong Choi MD LAB BLOOD ORDERABLES Fin al Result Performing Organization Address [facility] de Phone Number [facility] [place] [address] * Phosphorus (11/25/2023 7:09 PM CDT) [facility] Phosphorus, pl 3.0 2.3 - 4.5 mg/dL Blood 11/25/2023 7:09 PM CDT 11/25/2023 7:22 PM CDT Duong Choi MD LAB BLOOD ORDERABLES Fin al Result Performing Organization Address City/[facility]/[place] [address] * Magnesium (11/25/2023 7:09 PM CDT) [facility] Magnesium 1.8 1.4 - 2.5 mg/dL Blood 11/25/2023 7:09 PM CDT 11/25/2023 7:22 PM CDT Duong Choi MD LAB BLOOD ORDERABLES Fin al Result Performing Organization Address [facility] de Phone Number [facility] [place] [address] * (ABNORMAL) CBC with auto differential (11/25/2023 7:09 PM CDT) [facility] WBC 3.4(L) 3.8 - 9.9 K/cumm Hgb 8.5(L) 11.9 - 15.5 g/dL [facility] Hct 26.7(L) 35.6 - 45.5 % [facility] Plt 213 150 - 400 K/cumm [facility] MPV 11.6 9.1 - 12.3 fL [facility] RBC 3.02(L) 3.90 - 5.20 M/cumm [facility] MCV 88.4 81.3 - 96.4 fL [facility] MCH 28.1 27.1 - 33.3 pg [facility] MCHC 31.8(L) 32.3 - 35.7 g/dL [facility] RDW CV 20.9(H) 11.1 - 14.9 % [facility] RDW SD 67.1(H) 35.7 - 48.1 fL [facility] NRBC abs 0.00 0.00 - 0.01 K/cumm [facility] Blood 11/25/2023 7:09 PM CDT 11/25/2023 7:21 PM CDT us Duong Choi MD LAB BLOOD ORDERABLES Fin al Result [facility] Department [place] [address] * (ABNORMAL) Comprehensive metabolic panel (11/25/2023 7:09 PM CDT) Sodium 135 135 - 145 mmol/L Potassium, pl 3.9 3.3 - 4.9 mmol/L [facility] Chloride 103 97 - 110 mmol/L [facility] CO2 23 22 - 32 mmol/L [facility] Anion gap 9 2 - 15 mmol/L [facility] BUN 13 6 - 25 mg/dL [facility] Creatinine 1.22(H) 0.60 - 1.10 mg/dL [facility] Glucose 99 70 - 199 mg/dL [facility] Comment: Interpretive Data Fasting glucose [...] 2022. Calcium 9.8 8.5 - 10.3 mg/dL [facility] Bilirubin, total 0.8 0.1 - 1.2 mg/dL [facility] Protein, pl 6.4(L) 6.5 - 8.5 g/dL [facility] Albumin 3.5 3.5 - 5.0 g/dL [facility] Alk phos 152(H) 40 - 130 Units/L [facility] ALT 683(H) 7 - 45 Units/L [facility] AST 257(H) 10 - 45 Units/L [facility] Blood 11/25/2023 7:09 PM CDT 11/25/2023 7:22 PM CDT us Duong Choi MD LAB BLOOD ORDERABLES Fin al Result [facility] Department [place] [address] * XR Tibia Fibula Right 2 Views [...] calcifications Electronically signed by: Stefanie Burden M.D. us Elio Lewis MD IMG XR PROCEDURES Final [...] difficile testing Stool (11/25/2023 7:18 AM CDT) GDH Result Negative Negative Toxin Result Negative Negative [facility] C. diff result Negative, free toxin Negative, free toxin [facility] C. diff interp Negative for toxigenic Clostridioides (Clostridium) difficile. Analysis was performed using a glutamate dehydrogenase antigen detection assay combined with a C. difficile toxin detection assay. [facility] Stool 11/25/2023 7:18 AM CDT 11/25/2023 8:40 AM CDT Kassidy Cunningham MD LAB MICROBIOLOGY - G ENERAL ORDERABLES Final Result [facility] [place] [address] * (ABNORMAL) eGFR (11/25/2023 6:47 AM CDT) eGFR 48(L) >=60 mL/min/1. 73 m2 [...] MD LAB BLOOD ORDERABLES F inal Result [facility] [place] [address] * (ABNORMAL) Comprehensive metabolic panel (11/25/2023 6:47 AM CDT) Sodium 135 135 - 145 mmol/L Potassium, pl 4.0 3.3 - 4.9 mmol/L [facility] Chloride 102 97 - 110 mmol/L [facility] CO2 20(L) 22 - 32 mmol/L [facility] Anion gap 13 2 - 15 mmol/L [facility] BUN 11 6 - 25 mg/dL [facility] Creatinine 1.18(H) 0.60 - 1.10 mg/dL [facility] Glucose 84 70 - 199 mg/dL [facility] Comment: Interpretive Data Fasting glucose [...] 2022. Calcium 9.8 8.5 - 10.3 mg/dL [facility] Bilirubin, total 0.9 0.1 - 1.2 mg/dL [facility] Protein, pl 6.6 6.5 - 8.5 g/dL [facility] Albumin 3.6 3.5 - 5.0 g/dL [facility] Alk phos 166(H) 40 - 130 Units/L [facility] ALT 796(H) 7 - 45 Units/L [facility] AST 364(H) 10 - 45 Units/L [facility] Blood 11/25/2023 6:47 AM CDT 11/25/2023 6:58 AM CDT Seamus Pimentel Jr., MD LAB BLOOD ORDERABLES F inal Result Performing Organization Address [facility] Co de Phone Number [facility] [place] [address] * (ABNORMAL) CBC without differential (11/25/2023 6:47 AM CDT) [facility] WBC 3.8 3.8 - 9.9 K/cumm Hgb 8.4(L) 11.9 - 15.5 g/dL [facility] Hct 26.2(L) 35.6 - 45.5 % [facility] Plt 198 150 - 400 K/cumm [facility] MPV 10.9 9.1 - 12.3 fL [facility] RBC 3.00(L) 3.90 - 5.20 M/cumm [facility] MCV 87.3 81.3 - 96.4 fL [facility] MCH 28.0 27.1 - 33.3 pg [facility] MCHC 32.1(L) 32.3 - 35.7 g/dL [facility] RDW CV 21.0(H) 11.1 - 14.9 % [facility] RDW SD 65.5(H) 35.7 - 48.1 fL [facility] NRBC abs 0.00 0.00 - 0.01 K/cumm [facility] Blood 11/25/2023 6:47 AM CDT 11/25/2023 6:58 AM CDT Seamus Pimentel Jr., MD LAB BLOOD ORDERABLES F inal Result Performing Organization Address [facility] Co de Phone Number [facility] [place] [address] * (ABNORMAL) Urinalysis, microscopic only (11/24/2023 3:33 PM CDT) WBC, ur 0-5 0 - 5 /HPF RBC, ur 0-2 0 - 2 /HPF [facility] Epithelial cells, squamous, ur 1-5 0 - 5 /HPF [facility] Epithelial cells, transitional, ur 1-5 0 - 0 /HPF [facility] Bacteria, ur 1+(A) [facility] Culture Reflex Comment Reflex conditions for urine culture (WBC >10) not met. [facility] Urine 11/24/2023 3:33 PM CDT 11/24/2023 4:06 PM CDT us Kassidy Cunningham MD LAB URINE ORDERABLES Final Result [facility] [place] [address] * (ABNORMAL) Urinalysis reflex to microscopic and culture Urine (11/24/2023 3:33 PM CDT) Color, ur Straw Yellow Clarity, ur Clear Clear [facility] Specific gravity, ur 1.015 1.003 - 1.030 [facility] pH, urine 6.5 [facility] Comment: Interpretive Data ? Urine pH is affected by diet, medications, systemic acid-base disturbances, and renal tubular function. ??pH may affect urinary stone formation. ??For example, urine pH below 6.0 may help reduce the tendency for calcium phosphate stones and pH greater than 6.0 may reduce the tendency for uric acid stone formation. Source: [facility] [employer] Current Interpretive Data was last revised on 2017 Protein, ur ql Negative Negative [facility] Glucose, ur ql Negative Negative [facility] Ketones, ur Negative Negative [facility] Bilirubin, ur Negative Negative [facility] Blood, ur Negative Negative [facility] Urobilinogen, ur <2.0 <2.0 mg/dL [facility] Nitrite, ur Negative Negative [facility] Leukocyte esterase, ur 2+(A) Negative [facility] UA reflex comment Reflex to microscopic UA will be performed. [facility] Urine 11/24/2023 3:33 PM CDT 11/24/2023 4:06 PM CDT us Kassidy Cunningham MD LAB MICROBIOLOGY - G ENERAL ORDERABLES Final Result [facility] [place] [address] * CT Abdomen Pelvis W Contrast (11/24/2023 [...] in the lower lumbar spine. Procedure Note Benjamín Villeda MD - 11/24/2023 EXAMINATION: CT ABDOMEN [...] exam. Electronically signed by: Benjamín Villeda M.D. Kassidy Cunningham MD [facility] CT PROCEDURES Fi nal Result * Hepatitis panel, acute Blood (11/24/2023 12:01 PM CDT) Hep A IgM Nonreactive Nonreactive Hep B core IgM Nonreactive Nonreactive [facility] Hep C Ab Nonreactive Nonreactive [facility] Comment:Antibodies to HCV no t detected. Does NOT exclude the possibility of recent exposure to HCV. Current interpretive data was last revised on 22 HepBsAg Nonreactive Nonreactive [facility] Blood 11/24/2023 12:0 1 PM CDT 11/24/2023 12:20 PM CDT Kassidy Cunningham MD LAB MICROBIOLOGY - G ENERAL ORDERABLES Final Result Performing Organization Address [facility] de Phone Number [facility] Department [place] [address] * Troponin I high-sensitivity 2-hour (11/24/2023 12:01 PM CDT) Trop I hs 16 <=17 ng/L Comment: Interpretive Data For further hscTnI resources including the diagnostic algorithm and an aid in interpretation, copy and paste this link: https://bjhlab.testcatalog.org/show/[email or web address] Current Interpretive Data last revised 2019. Trop I hs delta 1 ng/L [facility] Trop I hs interp Insignificant [facility] Blood 11/24/2023 12:0 1 PM CDT 11/24/2023 12:20 PM CDT Elisha Jose MD LAB BLOOD ORDERABLES Final Result Performing Organization Address [facility] de Phone Number [facility] [place] [address] * POCUS Soft Tissue of the Upper [...] Elisha Jose MD - 11/28/2023 Performed by: Myla Harper/MSK: Exam Information: Exam type: Diagnostic Indication(s) for [...] Jose MD LAB BLOOD ORDERABLES Final Result [facility] [place] [address] * (ABNORMAL) Differential, auto (11/24/2023 9:49 AM CDT) [facility] Neutrophil abs 1.9 1.5 - 6.5 K/cumm Imm gran abs 0.0 0.0 - 0.1 K/cumm [facility] Lymphocyte abs 0.5(L) 0.8 - 3.3 K/cumm [facility] Monocyte abs 0.5 0.2 - 0.8 K/cumm [facility] Eosinophil abs 0.3 0.0 - 0.5 K/cumm [facility] Basophil abs 0.0 0.0 - 0.1 K/cumm [facility] Neutrophil pct 58.6 % [facility] Comment: Interpretive Data Percent cell count reference ranges are not reported, since discordance with absolute values may lead to misinterpretation of CBC data. Current Interpretive Data was last revised on 2017. Imm gran pct 0.3 % [facility] Comment: Interpretive Data Percent cell count reference ranges are not reported, since discordance with absolute values may lead to misinterpretation of CBC data. Current Interpretive Data was last revised on 2017. Lymphocyte pct 16.4 % [facility] Comment: Interpretive Data Percent cell count reference ranges are not reported, since discordance with absolute values may lead to misinterpretation of CBC data. Current Interpretive Data was last revised on 2017. Monocyte pct 16.7 % [facility] Comment: Interpretive Data Percent cell count reference ranges are not reported, since discordance with absolute values may lead to misinterpretation of CBC data. Current Interpretive Data was last revised on 2017. Eosinophil pct 7.7 % [facility] Comment: Interpretive Data Percent cell count reference ranges are not reported, since discordance with absolute values may lead to misinterpretation of CBC data. Current Interpretive Data was last revised on 2017. Basophil pct 0.3 % [facility] Comment: Interpretive Data Percent cell count reference ranges are not reported, since discordance with absolute values may lead to misinterpretation of CBC data. Current Interpretive Data was last revised on 2017. Blood 11/24/2023 9:49 AM CDT 11/24/2023 10:02 AM CDT us Elisha Jose MD LAB BLOOD ORDERABLES Final Result [facility] [place] [address] * Troponin I high-sensitivity series (baseline, 2hr, 4hr, 6hr) (11/24/2023 9:49 AM CDT) [facility] Trop I hs 15 <=17 ng/L Comment: Interpretive Data For further [facility] resources including the diagnostic algorithm and an aid in interpretation, copy and paste this link: [email or web address]/[email or web address] Current Interpretive Data last revised 2019. Blood 11/24/2023 9:49 AM CDT 11/24/2023 10:01 AM CDT Elisha Jose MD LAB BLOOD ORDERABLES Final Result [facility] [place] [address] * Lipase (11/24/2023 9:49 AM CDT) [facility] Lipase 31 10 - 99 Units/L Blood (Blood, Venous) 11/24/2023 9:49 AM CDT 11/24/2023 10:02 AM CDT Elisha Jose MD LAB BLOOD ORDERABLES Final Result Performing Organization Address City/[facility]/ZIP Co de Phone Number [facility] Department [place] [address] * (ABNORMAL) Comprehensive metabolic panel (11/24/2023 9:49 AM CDT) [facility] Sodium 135 135 - 145 mmol/L Potassium, pl 4.0 3.3 - 4.9 mmol/L [facility] Chloride 103 97 - 110 mmol/L [facility] CO2 23 22 - 32 mmol/L [facility] Anion gap 9 2 - 15 mmol/L [facility] BUN 12 6 - 25 mg/dL [facility] Creatinine 1.29(H) 0.60 - 1.10 mg/dL [facility] Glucose 106 70 - 199 mg/dL [facility] Comment: Interpretive Data Fasting glucose [...] 2022. Calcium 9.7 8.5 - 10.3 mg/dL [facility] Bilirubin, total 0.9 0.1 - 1.2 mg/dL [facility] Protein, pl 6.9 6.5 - 8.5 g/dL [facility] Albumin 4.0 3.5 - 5.0 g/dL [facility] Alk phos 185(H) 40 - 130 Units/L [facility] ALT 1,087(H) 7 - 45 Units/L [facility] AST 673(H) 10 - 45 Units/L [facility] Blood 11/24/2023 9:49 AM CDT 11/24/2023 10:02 AM CDT Elisha Jose MD LAB BLOOD ORDERABLES Final Result [facility] [place] [address] * (ABNORMAL) CBC with auto differential (11/24/2023 9:49 AM CDT) Pathologist [facility] WBC 3.2(L) 3.8 - 9.9 K/cumm Hgb 8.8(L) 11.9 - 15.5 g/dL [facility] Hct 27.6(L) 35.6 - 45.5 % [facility] Plt 191 150 - 400 K/cumm [facility] MPV 11.5 9.1 - 12.3 fL [facility] RBC 3.14(L) 3.90 - 5.20 M/cumm [facility] MCV 87.9 81.3 - 96.4 fL [facility] MCH 28.0 27.1 - 33.3 pg [facility] MCHC 31.9(L) 32.3 - 35.7 g/dL [facility] RDW CV 20.8(H) 11.1 - 14.9 % [facility] RDW SD 65.2(H) 35.7 - 48.1 fL [facility] NRBC abs 0.00 0.00 - 0.01 K/cumm [facility] Blood (Blood, Venous) 11/24/2023 9:49 AM CDT 11/24/2023 10:02 AM CDT us Elisha Jose MD LAB BLOOD ORDERABLES Final Result Performing Organization Address City/State/[facility] Co de Phone Number [facility] Department [place] [address] documented in this encounter Visit Diagnoses Diagnosis Acute hepatitis- Primary Acute and subacute necrosis of liver Hepatitis Unspecified hepatitis Cellulitis of right lower extremity Choledocholithiasis Calculus of bile duct without mention of cholecystitis or obstruction Choledocholithiasis Calculus of bile duct without mention of cholecystitis or obstruction Choledocholithiasis Calculus of bile duct without mention of cholecystitis or obstruction documented in this encounter Admitting Diagnoses Diagnosis Acute hepatitis Acute and subacute necrosis of liver Choledocholithiasis Calculus of bile duct without mention of cholecystitis or obstruction documented in this encounter Administered Medications Inactive Administered Medications - up to 3 most recent administrations Medication Order MAR Action Action Date Dose Rate Site acetaminophen (TYLENOL) tablet 650 mg 650 mg, oral, Every 6 hours PRN, 1st line for pain, Starting on Fri12/02/23 at 2215 Given 12/02/2023 10:42 PM CDT 650 mg amiodarone (PACERONE) tablet 200 mg 200 mg, [...] Given 12/01/2023 8:47 AM CDT 10 mg indomethacin (INDOCIN) 50 mg suppository As needed, Starting on Fri11/26/23 at 1624, Intra-Op Given 11/26/2023 4:24 PM CDT 100 mg metoprolol XL (TOPROL-XL) extended release tablet 25 mg 25 mg, oral, Daily, First dose on Fri11/25/23 at 0900, Tablets that are scored may be split, but do not crush, chew, dissolve, open or otherwise manipulate tablet/capsule. Given 12/03/2023 8:24 AM CDT 25 m g Given 12/02/2023 8:15 AM CDT 25 mg Given 12/01/2023 8:47 AM CDT [address] (PROTONIX) extended release tablet [...] AM CDT 40 mg prochlorperazine (COMPAZINE) injection 5 mg 5 mg, intravenous, Administer over 2 Minutes, Every 6 hours PRN, nausea, vomiting, Starting on Fri11/27/23 at 1527 Given 11/28/2023 8:18 PM CDT 5 mg Given 11/27/2023 4:42 PM CDT 5 mg ramelteon (ROZEREM) tablet 8 mg 8 mg, [...] 1826 (Given - Provider: Yvonne Corrigan RN) fmbralatehmzv-mkobesx-cws feine (EXCEDRIN MIGRAINE) 250-250-65 mg per tablet 1 tablet (COMPLETED) 1 tablet, oral, Once, On Fri12/01/23 at 2145, For 1 dose 0039 (Given - Provider: Thuy Moore RN) amiodarone (PACERONE) tablet 200 mg 200 mg, oral, Daily, First dose on Fri11/25/23 at 0900 0847 (Given - Provider: Yvonne Corrigan RN) 0815 (Given - Provider: Baylee Andrea RN) 0824 (Given - Provider: Minerva Lou RN) apixaban (ELIQUIS) tablet 5 mg 5 mg, oral, Every 12 hours scheduled, First dose on Fri11/28/23 at 0945, Nurse to discontinue heparin infusion order and associated bolus at first administration of apixaban using ? order condition met? order source, Indications: atrial fibrillation 0847 (Given - Provider: Yvonne Corrigan RN)2000 (Given - Provider: Thuy Moore RN) 08 (Given - Provider: Baylee Andrea, PHILIP)2008 (Given - Provider: Thuy Moore RN) 08 (Given - Provider: Minerva Lou, PHILIP) atorvastatin (LIPITOR) tablet 80 mg 80 mg, oral, Nightly, First dose on Fri11/25/23 at 2100, On hold since Fri11/29/2023 at 0024 until manually unheld 2099 (Not Given - Provider: Thuy Moore RN - Reason: See Provider Order) 2099 (Not Given - Provider: Thuy Moore RN - Reason: See Provider Order) 1930 (Unheld by Provider - Provider: Automatic Discharge Provider) calcium carbonate-vitamin D3 1,250mg (500mg elemental) - 5 mcg (200 units) per tablet 1 tablet 1 tablet, oral, Daily, First dose on Fri11/25/23 at 1930 0847 (Given - Provider: Yvonne Corrigan RN) 0814 (Given - Provider: Baylee Andrea, PHILIP) 08 (Given - Provider: Minerva Lou, PHILIP) ezetimibe (ZETIA) tablet 10 mg 10 mg, oral, Daily, First dose on Fri11/25/23 at 1930 0847 (Given - Provider: Yvonne Corrigan RN) 0815 (Given - Provider: Baylee Andrea, PHILIP) 08 (Given - Provider: Minerva Lou, PHILIP) metoprolol XL (TOPROL-XL) extended release tablet 25 mg 25 mg, oral, Daily, First dose on Fri11/25/23 at 0900, Tablets that are scored may be split, but do not crush, chew, dissolve, open or otherwise manipulate tablet/capsule. 0847 (Given - Provider: Yvonne Corrigan RN) 0815 (Given - Provider: Baylee Andrea, PHILIP) 0824 (Given - Provider: Minerva Lou RN) pantoprazole DR (PROTONIX) extended release tablet 40 mg 40 mg, oral, Daily, First dose on Fri11/25/23 at 1930, Do not crush, chew, cut, dissolve, open or otherwise manipulate tablet/capsule., Indications: Treatment of Non-Bleeding Gastric Disorder 0847 (Given - Provider: Yvonne Corrigan, PHILIP) 0816 (Given - Provider: Baylee Andrea, PHILIP) 0824 (Given - Provider: Minerva Lou, RN) sertraline (ZOLOFT) tablet 50 mg 50 mg, oral, Daily, First dose on Fri11/25/23 at 0900 0847 (Given - Provider: Yvonne Corrigan RN) 0816 (Given - Provider: Baylee Andrea, PHILIP) 0823 (Given - Provider: Minerva Lou, RN) PRN Medication Order 12/01/2023 12/02/2023 12/03/2023 acetaminophen [...] Count Last Ordered Date First Ordered Date acetaminophen (TYLENOL) tablet 650 mg 2 12/01/2023 jiydvfptxfnst-kudaraf-kluudq ne (EXCEDRIN MIGRAINE) 250-250-65 mg per tablet 1 tablet 1 12/01/2023 Lactated Ringer's (LR) infusion 3 4 11/27/2023 apixaban (ELIQUIS) tablet 5 mg 1 11/28/2023 magnesium sulfate 2 g/50 mL in water (premix) 2 g 2 11/28/2023 11/27/2023 prochlorperazine (COMPAZINE) injection 10 mg 2 11/28/2023 11/27/2023 prochlorperazine (COMPAZINE) injection 5 mg 2 11/28/2023 11/27/2023 acetaminophen (TYLENOL) tablet 500 mg 1 ondansetron (ZOFRAN) injection 4 mg 3 11/2611/24/2023 sodium chloride 0.9% flush 0.5-20 mL 2 11/14 sodium chloride 0.9% infusion 1 11/26/2023 acetaminophen (TYLENOL) tablet 1,000 mg 1 0 11/25/2023 amiodarone (PACERONE) tablet 200 mg 1 11/24 atorvastatin (LIPITOR) tablet 80 mg 1 11/24 calcium carbonate-vitamin D3 1,250mg (500mg elemental) - 5 mcg (200 units) per tablet 1 tablet 1 11/25/2023 diclofenac sodium (VOLTAREN) 1 % gel 2 g 1 11/25/2023 ezetimibe (ZETIA) tablet 10 mg 1 11/25/2023 metoprolol XL (TOPROL-XL) ex tended release tablet 25 mg 1 11/25/2023 midodrine (PROAMATINE) tablet 5 mg [address] (PROTONIX) e xtended release tablet 40 mg 1 11/25/2023 polyethylene glycol (MIRALAX) packet 17 g 11/25/2023 ramelteon (ROZEREM) tablet 8 mg 1 sertraline (ZOLOFT) tablet 50 mg 1 11/25/19 sulfamethoxazole-trimethopri m (BACTRIM DS) 800-160 mg per tablet 160 mg of trimethoprim 1 11/25/2023 ioversoL (OPTIRAY 350) syringe 100 mL 1 03/2024 Lactated Ringer's (LR) bolus 1,000 mL 1 03/2024 lidocaine (LMX) 4 % cream 1 Application 1 0 11/24/2023 lidocaine-EPINEPHrine (XYLOC ANUJ with EPI) 1 %-1:200,000 preservative free injection 10 mL 1 11/24/2023 Nursing Count Last Ordered Date First Orde [...] as of this encounter Care Teams Computer Peripheral Equipment Operator Relationship Specialty Start Date End Date Cristian Ling MD [address] [place] [address] PCP - General 10/16/16 documented as of this encounter
--- OUTSIDE RECORDS SUMMARY | 2024-06-12 03:54 | XMS_ITS | Encounter Summary ---
Author Organization [facility] Address [address] [place] [address] Phone Care Team Providers Care Head Strength And Conditioning Coach Name Role Phone Cristian Ling MD Primary Care Prov ider Reason for Referral * Consultation (Routine) - Pending Review Specialty Diagnoses / Procedures Referred By Contdeepali t Referred To Contact Otolaryngology Diagnoses Vertigo Sami Stafford MD [address] [address] Phone: tel: fax: [facility] (All Locations) Referral ID Status Reason Start Date Expiration Date Visits Requested Visits Authorized [id number] Pending Review Specialty Services Required 11/13/2023 12/12/2024 1 1 Question Answer Please select the performing region: [facility] (All Locations) [167] # of visits: 1 Encounter Details Date Type Department Care Team (Late st Contact Info) Description 11/12/2023 Telephone [facility] Cardiology [address] [place] [address] [place] [address] Sami Stafford MD [address] [facility] [address] [place] [address] Social History Tobacco Use Types Packs/Day Years Used Date Smoking Tobacco: Never Passive Smoke Exposure: Current Smokeless Tobacco: Never AUDIT-C Answer Date Recorded Q1: How often do you have a drink containing alc ohol? 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 Attempted to contact pt. No answer, no VM box set up. * Telephone Encounter - Sami Stafford MD - 11/13/2023 11:17 AM CDT Recommend ENT eval * Telephone Encounter - Sheila Solomon RN - 11/12/2023 1:13 PM CDT Spoke with pt. Reports BP's all over the place. 106/56 138/88 118/68 112/58 She is taking midodrine 5mg daily- I explained BP's will be a little higher than normal to allow more room with position changes, etc. Reports still having intermittent dizziness/LH - occurs while she is sitting at rest. Feels like her balance is off. She reports feeling like she is spinning- she has had vertigo in the past but reports at that time she could barely stand up. I told her it seems like it could be more vertigo related, potentially more mild than when she had it previously. Recommended she discuss treatment options like PT with her PCP. She also recently had an iron infusion ordered by hematology and wanted to know if any follow up needed to be done- instructed her to discuss with hematology office. I told her Iwould send a note to Dr Stafford to see if he had any other recs, but again encouraged discussed PT with PCP. * Telephone Encounter - Ella Diggs - 11/12/2023 12:27 PM CDT Rivera Patient is calling in regards to speaking to a nurse about her BP being erratic. She said that she has experienced some weakness. documented in this encounter Plan of Treatment Scheduled Referrals Name Type Priority Associated Diagnoses Order Schedule Ambulatory referral to ENT Outpatient Referral Routine Vertigo Expected: 11/27/2023 (Approximate), Expires: 11/12/2024 documented as of this encounter Visit Diagnoses Diagnosis Vertigo- Primary Dizziness and giddiness documented in this encounter Care Teams Head Strength And Conditioning Coach Relationship Specialty Start Date End Date Cristian Ling MD [address] [place] [address] PCP - General 10/16/16 documented as of this encounter
--- OUTSIDE RECORDS SUMMARY | 2024-06-12 03:54 | XMS_ITS | Encounter Summary ---
Author Organization [facility] Healthcare Address [address] [place] [address] Care Team Providers Care Website/Blog Editor Name Role Phone Cristian Ling MD Primary Care Prov ider Reason for Visit * Auth/Cert (Routine) Specialty Diagnoses / Procedures Referred By Contac t Referred To Contact Diagnoses Acute hepatitis Procedures NA Referral ID Status Reason Start Date Expiration Date Visits Re quested Visits Authorized [id number] 1 1 Encounter Details Date Type Department Care Team (Late st Contact Info) Description 11/26/2023 3:59 PM CDT Anesthesia Event [facility] [place] [address] [place] [address] Gio Kahn MD [address] [place] [address] Itz Salvador CRNA [address] [place] [address] Anesthesia Record Procedure Summary Procedure Name Responsible Anesthesiologist Anesthesia Start Time Anesthesia Stop Time ESOPHAGOGASTRODUODENOSCOPY ENDOSCOPIC ULTRASOUND (Left) Gio Kahn MD 11/26/23 1559 11/26/23 1700 Events Date Time Event Comment 11/26/2023 1559 An Start 1601 In Room 1602 An Start Data 1602 An Data Art 1610 Start Supplemental O2 1610 Patient Positioned Prone 1610 Bite Block Placed 1610 An Induction The patient was reevaluated immediately before moderate or deep sedation use and before anesthesia induction. 1610 Anesthesia Ready 1612 Proc Start 1650 Proc Fin 1654 Out of Room 1654 an stop data 1700 Handoff to RN I completed my handoff [...] disposition at the time of handoff: PACU 1700 An Stop Meds Name Total lidocaine (cardiac) syringe 2 % 40 mg propofol 100 mg propofol 430.2 mg glucagon 0.5 mg LR 500 mL * Agents Name O2% N2O O2 N2O Air * Blood No blood administrations on file. Lines, Drains, and Airways Type Details Placement Removal Peripheral IV Placement Date: 11/14 ; Placement Time: 0946; Catheter Size: 20 G; Orientation: Right; Location: Antecubital; Site Prep: Chlorhexidine; Technique: Anatomical landmarks; Removal Date: 12/07/23; Removal Time: 1013; Removal Reason: Not present on admission 11/24/23 0946 by Nallely Keating RN 12/07/23 1013 by Mary Lou López RN documented in this encounter Social History Tobacco Use Types Packs/Day Years Used Date Smoking Tobacco: Never Passive Smoke Exposure: Current Smokeless Tobacco: Never [facility] Utilities Answer Date Recorded In the past 12 months has [employer], [employer], or water [employer] threatened to shut off services in your [...] week 11/25/2023 How often do you attend zoroastrian or catholic serv ices? Never 11/25/2023 Do you belong to any clubs o r organizations such as zoroastrian groups, unions, fraternal or athletic groups, or [...] staff should administer the PHQ-9) 0 09/28/2020 [facility] - Occupational Stress Questionnaire Answer [...] living in a usp (including now)? 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 ENDOSCOPY ROOM 2 / [facility] ENDOSCOPY Anesthesia Start: 1559 Anesthesia Stop: Procedures: ESOPHAGOGASTRODUODENOSCOPY ENDOSCOPIC ULTRASOUND (Left) ENDO ENDOSCOPIC RETROGRADE CHOLANGIOPANCREATOGRAPHY WITH STENT PLACEMENT RAD S AND I BILIARY DUCTAL SYSTEM Diagnosis: Choledocholithiasis (Choledocholithiasis [K80.50]) Providers: Heydi Fenton MD Responsible Provider: Gio Kahn MD Anesthesia Type: MAC ASA Status: 3 Anesthesia Type: MAC Last vitals BP 148/64 Pulse 60 Temp 36 ??C (96.8 ??F) (Temporal) Resp 13 SpO2 97% Anesthesia Post Evaluation Patient location during evaluation: PACU Patient participation: complete - patient participated Level of consciousness: fully awake Pain score: 0 Pain management: adequate Airway patency: patent and adequate Evidence of recall: no Cardiovascular status: acceptable and hemodynamically stable Respiratory status: acceptable and room air Hydration status: acceptable Pt is: normothermic Nausea/Vomiting status: none No notable events documented. * Anesthesia Preprocedure Evaluation - Gio Kahn MD - 11/26/2023 1:13 PM CDT Images from the original note were not included. Anesthesia Evaluation Tiera Lobato is a 78 y.o. female ESOPHAGOGASTRODUODENOSCOPY ENDOSCOPIC ULTRASOUND (Left) ERCP Pre-Op Diagnosis Codes: * Choledocholithiasis [K80.50] Patient Active Problem List Diagnosis Date Noted Acute hepatitis 11/24/2023 Choledocholithiasis 11/24/2023 Iron deficiency anemia, unspecified 10/05/2023 NSVT (nonsustained ventricular tachycardia) ([facility]) 08/20/2023 A-fib (CMS/HCC) ([facility]) 02/17/2023 Atrial fibrillation (CMS/HCC) ([facility]) 01/13/2023 Apical variant hypertrophic cardiomyopathy ([facility]) 12/05/2022 Paroxysmal atrial fibrillation (CMS/HCC) ([facility]) 12/05/2022 Right hip pain 11/22/2021 Other osteoporosis without current pathological fracture 03/07/2021 Lumbar stenosis with neurogenic claudication 09/29/2020 History of [place] (myocardial infarction) 12/10/2017 Primary hypertension 11/06/2012 Coronary artery disease involving [place] coronary artery of [place] heart without angina pectoris 09/23/2012 Hx of CABG 09/23/2012 Past Medical History: Diagnosis Date Acid reflux Heart murmur High cholesterol History of blood clots 1960s in leg as teenager - had phlebitis History of [place] (myocardial infarction) 2012 History of vertebral fracture 2017 HTN (hypertension) IBS (irritable bowel syndrome) Vertigo Past Surgical History: Procedure Laterality Date CARDIOVERSION 03/2023 COLON SURGERY 1992 Repair burst colon CORONARY ARTERY BYPASS GRAFT 2012 Double by-pass - [facility] FLUORO GUIDED INJECTION HIP RIGHT Right 05/16/2022 FLUORO GUIDED INJECTION HIP RIGHT Right 08/15/2022 FLUORO GUIDED INJECTION HIP RIGHT Right 12/10/2022 FLUORO GUIDED INJECTION HIP RIGHT Right 05/13/[address] James ([place], [place]) TOTAL KNEE ARTHROPLASTY Right 2018 OB History No obstetric history on file. Allergies Allergen Reactions Codeine Hives and Shortness of breath Latex Itching Milk Nausea & Vomiting Tramadol Nausea & Vomiting and Unknown Taking? Last Dose Start Date End Date Provider acetaminophen 500 mg capsule More than a month 03/21/23 -- Te Baker MD PhD Take 2 capsules (1,000 mg total) by mouth 3 (three) times a day alendronate (FOSAMAX) 70 mg tablet Past Week 11/09/18 -- ProviderFidel MD amiodarone (PACERONE) 200 mg tablet 11/25/2023 08/21/23 -- Sami Stafford MD Take 1 tablet (200 mg total) by mouth daily Notes: Decreased dose. apixaban (Eliquis) 5 mg tablet () Past Week 03/21/23 11/25/23 Te Baker MD PhD Take 1 tablet (5 mg total) by mouth 2 (two) times a day atorvastatin (LIPITOR) 80 mg tablet Past Week 03/21/23 03/20/24 Te Baker MD PhD Take 1 tablet (80 mg total) by mouth nightly calcium carbonate-vitamin D3 1,250mg (500mg elemental) - 5 mcg (200 units) per tablet Unknown 03/21/23 03/20/24 Te Baker MD PhD Take 1 tablet by mouth daily diclofenac sodium (VOLTAREN) 1 % gel Past Week 03/21/23 -- Te Baker MD PhD Apply 2 g topically 3 (three) times a day ezetimibe (ZETIA) 10 mg tablet Past Week 07/30/21 -- Sami Stafford MD TAKE 1 TABLET BY MOUTH EVERY DAY linaCLOtide (Linzess) 145 mcg capsule () Past Month 03/21/23 11/25/23 Te Baker MD PhD Take 1 capsule (145 mcg total) by mouth daily before breakfast metoprolol tartrate (LOPRESSOR) 25 mg immediate release tablet Past Week 03/21/23 03/20/24 Te Baker MD PhD Take 1 tablet (25 mg total) by mouth daily as needed (to be given if pt has palpitations and is sympotmatic) metoprolol XL (TOPROL-XL) 25 mg extended release tablet Past Week 01/22/23 -- Sami Stafford MD Take 1 tablet (25 mg total) by mouth daily Notes: Decreased 01/22/23 midodrine (PROAMATINE) 5 mg tablet Past Week 10/20/23 -- Sami Stafford MD Take 1 tablet (5 mg total) by mouth 3 (three) times a day ondansetron (ZOFRAN) 4 mg tablet Unknown -- -- Fidel Carranza MD pantoprazole DR (PROTONIX) 40 mg EC tablet Past Week 03/21/23 03/20/24 Te Baker MD PhD Take 1 tablet (40 mg total) by mouth daily sertraline (ZOLOFT) 100 mg tablet Past Week 11/09/19 -- Fidel Carranza MD Current Facility-Administered Medications: [Held by Provider] acetaminophen (TYLENOL) tablet 1,000 mg, 1,000 mg, oral, Q8H PRN [Transfer Hold] amiodarone (PACERONE) tablet 200 mg, 200 mg, oral, Daily, 200 mg at 11/26/23830 [Transfer Hold] atorvastatin (LIPITOR) tablet 80 mg, 80 mg, oral, Nightly [Transfer Hold] calcium carbonate-vitamin D3 1,250mg (500mg elemental) - 5 mcg (200 units) per tablet 1 tablet, 1 tablet, oral, Daily, 1 tablet at 11/26/23830 [Transfer Hold] diclofenac sodium (VOLTAREN) 1 % gel 2 g, 2 g, topical, TID PRN [Transfer Hold] ezetimibe (ZETIA) tablet 10 mg, 10 mg, oral, Daily, 10 mg at 11/26/23 08 [Transfer Hold] metoprolol XL (TOPROL-XL) extended release tablet 25 mg, 25 mg, oral, Daily, 25 mg at 11/26/23 0852 [Transfer Hold] pantoprazole DR (PROTONIX) extended release tablet 40 mg, 40 mg, oral, Daily, 40 mgat 11/26/23 0831 [Transfer Hold] polyethylene glycol (MIRALAX) packet 17 g, 17 g, oral, Daily PRN [Transfer Hold] ramelteon (ROZEREM) tablet 8 mg, 8 mg, oral, Nightly PRN [Transfer Hold] sertraline (ZOLOFT) tablet 50 mg, 50 mg, oral, Daily, 50 mg at 11/26/23 0831 sodium chloride 0.9% flush 0.5-20 mL, 0.5-20 mL, intra-catheter, Q8H AGUS sodium chloride 0.9% flush 0.5-20 mL, 0.5-20 mL, intra-catheter, PRN sodium chloride 0.9% infusion, 30 mL/hr, intravenous, Continuous Social History Tobacco Use Smoking Status Never [...] Prostate cancer Father Stroke Child Hypertension Child Vitals: 11/26/23 0355 11/26/23 0728 11/26/23 1302 BP: 152/59 155/54 148/64 Pulse: 57 57 60 Resp: 18 18 13 Temp: 36.5 ??C (97.7 ??F) 36.7 ??C (98.1 ??F) 36 ??C (96.8 ??F) SpO2: 98% 99% 97% PT: 11/25/2023: 11.8 sec INR: 11/25/2023: 1.04 APTT: 11/25/2023: 42 sec (H) Hgb A1C: No results found for requested labs within last 30 days. CBC RBC: 11/25/2023: 3.02 M/cumm (L) RDW: No results found for requested labs within last 30 days. MCHC: 11/25/2023: 31.8 g/dL (L) MCH: 11/25/2023: 28.1 pg MCV: 11/25/2023: 88.4 fL Hct: 11/25/2023: 26.7 % (L) Hgb: 11/25/2023: 8.5 g/dL (L) WBC: 11/25/2023: 3.4 K/cumm (L) MPV: 11/25/2023: 11.6 fL Platelets: 11/25/2023: 213 K/cumm RDW CV: 11/25/2023: 20.9 % (H) RDW Sd: 11/25/2023: 67.1 fL (H) BMP Glucose: 11/25/2023: 99 mg/dL Calcium: 11/25/2023: 9.8 mg/dL Sodium: 11/25/2023: 135 mmol/L Potassium: 11/25/2023: 3.9 mmol/L CO2: 11/25/2023: 23 mmol/L Chloride: 11/25/2023: 103 mmol/L BUN: 11/25/2023: 13 mg/dL Creatinine: 11/25/2023: 1.22 mg/dL (H) DOS Physical Exam Medical history, medications, and allergies reviewed. Attestation: This PAT evaluation 11/26/2023. Airway Exam: Mallampati: II Cervical ROM: FROM TM distance: 3.5 Upper lip bite test class: 1 Cardiovascular Exam: Rate: regular Rhythm: regular Pulmonary Exam: LCTA, bilat EENT Exam: trachea midline Dental Exam: Lower dentures and upper dentures Skin Exam: Skin is warm. Abdominal Exam: Abdomen is soft. Current state: Patient's current state is cooperative and interactive. Anesthesia Plan ASA 3 My patient is approved for the Anesthesia Controlled Medication protocol when under care of a COMMERCIAL SINGER Planned anesthesia: MAC Induction: Induction: intravenous. Postoperative Plan: No plan for postoperative opioid use. No postoperative mechanical ventilation intended. Patient's planned disposition post procedure is Outpatient. Informed Consent: Discussed plan with COMMERCIAL SINGER. Anesthesia plan and risks discussed with patient. [...] MAR Action Action Date Dose Rate Site glucagon injection intravenous, Administer over 1 Minutes, As needed, Starting on Fri11/26/23 at 1627, Anesthesia Intra-op Given 11/26/2023 4:27 PM CDT 0.5 mg Lactated Ringer's (LR) infusion intravenous, Continuous PRN, Starting on Fri11/26/23 at 1559, Anesthesia Intra-op New Bag 11/26/2023 3:59 PM CDT lidocaine (cardiac) (XYLOCAINE) preservative free injection intravenous, As needed, Starting on Fri11/26/23 at 1610, Anesthesia Intra-op, Indications: Ventricular ArrhythmiasIndications:V entricular Arrhythmias Given 11/26/2023 4:10 PM CDT 40 mg propofoL (DIPRIVAN) 10 mg/mL IV intravenous, As needed, Starting on Fri11/26/23 at 1610, Anesthesia Intra-op Given 11/26/2023 4:10 PM CDT 100 mg propofoL (DIPRIVAN) 10 mg/mL IV intravenous, Continuous PRN, Starting on Fri11/26/23 at 1610, Anesthesia Intra-op New Bag 11/26/2023 4:10 PM CDT 150 mcg/kg/min 64.53 mL/hr documented in this encounter Care Teams Website/Blog Editor Relationship Specialty Start Date End Date Cristian Ling MD [address] [place] [address] PCP - General 10/16/16 documented as of this encounter
--- OUTSIDE RECORDS SUMMARY | 2024-06-12 03:55 | XMS_ITS | Encounter Summary ---
Author Organization [facility] Address [address] [place] [address] Phone Care Team Providers Care International Logistics Coordinator Name Role Phone Cristian Ling MD Primary Care Prov ider Encounter Details Date Type Department Care Team (Late st Contact Info) Description 10/07/2023 Orders Only [facility] Hematology [address] [place] [address] [place] [address] Jody Foley Iron deficiency anemia due to chronic blood loss (Primary Dx) Social History Tobacco Use Types Packs/Day Years [...] on file 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 Gender Identity Female 02/07/2021 4:33 PM CDT Sexual Orientation Straight 02/07/2021 4: 33 PM CDT documented as of this encounter Plan of Treatment Not on file documented as of this encounter Visit Diagnoses Diagnosis Iron deficiency anemia due to chronic blood loss- Primary Iron deficiency anemia secondary to blood loss (chronic) documented in this encounter Orders Appointment Requests Count Last Ordered Date Fi rst Ordered Date ONCBCN INFUSION APPT REQUEST 1 10/07/2023 documented in this encounter Care Teams International Logistics Coordinator Relationship Specialty Start Date End Date Cristian Ling MD [address] [place] [address] PCP - General 10/16/16 documented as of this encounter
--- OUTSIDE RECORDS SUMMARY | 2024-06-12 03:55 | XMS_ITS | Encounter Summary ---
Author Organization [facility] Address [address] [place] [address] Phone Care Team Providers Care Corporate Concierge Name Role Phone Cristian Ling MD Primary Care Prov ider Reason for Referral * Diagnostic Imaging (Routine) - Closed Specialty Diagnoses / Procedures Referred By Contac t Referred To Contact Diagnoses Primary osteoarthritis of right hip Right hip pain Procedures FL Fluoro Guided Injection Hip Right Jamari Rodríguez MD [address] [place] [address] Phone: tel: fax: [facility] [address] [place] [address] Referral ID Status Reason Start Date Expiration Date Visits Re quested Visits Authorized [id number] Closed 04/17/2023 05/16/2024 1 1 Encounter Details Date Type Department Care Team (Late st Contact Info) Description 04/17/2023 Orders Only [facility] Orthopaedic Surgery 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 ??Please refer to the physician's procedure / OR operative note. Jamari Rodríguez MD IMG FLUOROSCOPY PROCEDURES Final Result [facility] documented in this encounter Visit Diagnoses Diagnosis Primary osteoarthritis of right hip- Primary Right hip pain Pain in joint, pelvic region and thigh Primary osteoarthritis of right hip Right hip pain Pain in joint, pelvic region and thigh documented in this encounter Additional Health Concerns Infection Onset Date Last Indicated Resolved Time MRSA Comment:IP Review- Patient has documentation of cultures positive for MRSA from outside facility on 02/12. Isolation flag placed for this reason. Please contact IP for any questions or concerns. 02/18/23 12:07 PM Lena Mccoy 02/18/2023 02/18/2023 3:05 AM [employer]EUR [employer] documented as of this encounter Care Teams Corporate Concierge Relationship Specialty Start Date End Date Cristian Ling MD [address] [place] [address] PCP - General 10/16/16 documented as of this encounter
--- OUTSIDE RECORDS SUMMARY | 2024-06-12 03:55 | XMS_ITS | Encounter Summary ---
Author Organization [facility] Healthcare Address [address] [place] [address] Care Team Providers Care Seed Buyer Name Role Phone Cristian Ling MD Primary Care Prov ider Encounter Details Date Type Department Care Team (Latest Contact Info) Description 10/03/2023 12:47 PM CDT - 10/03/2023 11:59 PM CDT Hospital Encounter 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 Gender Identity Female 02/07/2021 4:33 PM CDT Sexual Orientation Straight 02/07/2021 4: 33 PM CDT documented as of this encounter Medications at Time of Discharge alendronate (FOSAMAX) 70 mg tablet TAKE 1 TABLET BY MOUTH ONE TIME PER WEEK 0 11/09/2018 apixaban (Eliquis) 5 mg tabletIndications :atrial fibrillation Take 1 tablet (5 mg total) by mouth 2 (two) times a day 60 tablet 03/21/2023 atorvastatin (LIPITOR) 80 mg tablet Take 1 [...] MOUTH EVERY DAY 90 tablet 3 07/30/2021 linaCLOtide (Linzess) 145 mcg capsuleIndication s:Constipation Predominant Irritable Bowel Syndrome Take 1 capsule (145 mcg total) by mouth daily before breakfast 30 capsule 03/21/2023 metoprolol XL (TOPROL-XL) 25 mg extended release tabletIndications :Paroxysmal atrial fibrillation with RVR (HCC) Take 1 tablet (25 mg total) by mouth daily 30 tablet 11 01/22/2023 midodrine (PROAMATINE) 5 mg tabletIndications :Symptomatic Orthostatic Hypotension Take 1 tablet (5 mg total) by mouth 3 (three) times a day 90 tablet 11 10/20/2023 ondansetron (ZOFRAN) 4 mg tablet Take 1 tablet (4 mg total) by mouth every 8 (eight) hours as needed for nausea or vomiting pantoprazole DR (PROTONIX) 40 mg EC tabletIndications :Treatment of Non-Bleeding Gastric Disorder Take 1 tablet (40 mg total) by mouth daily 30 tablet 11 03/21/2023 acetaminophen 500 mg capsule Take 2 capsules (1,000 mg total) by mouth 3 (three) times a day 30 tablet 03/21/2023 4 amiodarone (PACERONE) 200 mg tablet Take 1 tablet (200 mg total) by mouth daily 30 tablet 11 08/21/2023 4 cannabidiol, CBD, (medical cannabis) each 1 Dose 3 (three) times a day as needed Tablets 4 cholecalciferol (VITAMIN D-3) 1,000 unit tablet Take 1 tablet (1,000 Units total) by mouth daily 4 cyanocobalamin (Vitamin B-12) 1,000 mcg tablet Take 2 tablets (2,000 mcg total) by mouth daily [address] (VOLTAREN) 75 mg EC tablet Take 1 tablet (75 mg total) by mouth 2 (two) times a day 11/04/2019 4 gabapentin (NEURONTIN) 100 mg capsule Take 2 capsules (200 mg total) by mouth 2 (two) times a day 120 capsule 11 03/21/2023 4 metoprolol tartrate (LOPRESSOR) 25 mg immediate release tablet Take 1 tablet (25 mg total) by mouth daily as needed (to be given if pt has palpitations and is sympotmatic) 0 03/21/2023 4 midodrine (PROAMATINE) 5 mg tablet 08/06/2023 4 sertraline (ZOLOFT) 100 mg tablet Take 0.5 tablets (50 mg total) by mouth daily 11/09/2019 4 documented as of this encounter Discharge Disposition Disposition Code Departure Means Destination Discharge to home or self care documented in this encounter Plan of Treatment Pending Results Name Type Priority Associated Diagnoses Date /Time Iron profile w/ IBC Lab Routine 10/02 11:06 AM CDT Ferritin Lab Routine 10/03/2023 11: 06 AM CDT Scheduled Orders Name Type Priority Associated Diagnoses Orde r Schedule Iron profile w/ IBC Lab Routine Once for 1 Occurrences starting 10/03/2023 until 10/03/2023 Ferritin Lab Routine Once for 1 Occ urrences starting 10/03/2023 until 10/03/2023 documented as of this encounter Procedures Procedure Name Priority Date/Time Associated Diagnosis Comments EGFR Routine 10/03/2023 11:06 AM CDT Anemia, unspecified type DIFFERENTIAL AUTO Routine 10/03/2023 11: 06 AM CDT Anemia, unspecified type IRON PROFILE W/ IBC Routine 10/03/2023 1 1:06 AM CDT Anemia, unspecified type CBC WITH AUTO DIFFERENTIAL Routine 10/03/2023 11:06 AM CDT Anemia, unspecified type FERRITIN Routine 10/03/2023 11:06 AM CDT Anemia, unspecified type COMPREHENSIVE METABOLIC PANEL Routine 10/03/2023 11:06 AM CDT Anemia, unspecified type documented in this encounter Results * (ABNORMAL) Iron profile w/ IBC (10/03/2023 11:06 AM CDT) [facility] Iron 31(L) 35 - 145 mcg/dL TIBC 424(H) 250 - 400 mcg/dL [facility] Transferrin saturation 7(L) 20 - 50 % [facility] Blood 10/03/2023 11:0 6 AM CDT 10/03/2023 12:30 PM CDT Katja Linares MD LAB BLOOD ORDERABLES Caitlyn l Result [facility] Department [place] [address] * Ferritin (10/03/2023 11:06 AM CDT) [facility] Ferritin 43 13 - 150 ng/mL Blood 10/03/2023 11:0 6 AM CDT 10/03/2023 12:30 PM CDT Katja Linares MD LAB BLOOD ORDERABLES Caitlyn l Result [facility] Department [place] [address] * (ABNORMAL) eGFR (10/03/2023 11:06 AM CDT) Pathologist [facility] eGFR 36(L) >=60 mL/min/1. 73 m2 Comment: Interpretive Data [...] Current interpretive data was last reviewed 2021. Testing performed by: [facility], [address] [place] [phone] Blood 10/03/2023 11:0 6 AM CDT 10/03/2023 11:09 AM CDT us Katja Linares MD LAB BLOOD ORDERABLES Caitlyn l Result [facility] Department [place] [address] * (ABNORMAL) Differential, auto (10/03/2023 11:06 AM CDT) Neutrophil abs 2.6 1.5 - 6.6 K/cumm Comment:Testing performed by : [facility], [address] [place] [phone] Lymphocyte abs 1.1(L) 1.2 - 3.3 K/cumm [facility] Comment:Testing performed by : [facility], [address] [place] [phone] Monocyte abs 0.6 0.2 - 1.2 K/cumm [facility] Comment:Testing performed by : [facility], [address] [place] [phone] Eosinophil abs 0.0 0.0 - 0.5 K/cumm [facility] Comment:Testing performed by : [facility], [address] [place] [phone] Basophil abs 0.0 0.0 - 0.2 K/cumm [facility] Comment:Testing performed by : [facility], [address] [place] [phone] Neutrophil pct 59.1 % [facility] Comment: Interpretive Data Percent cell count reference ranges are not reported, since discordance with absolute values may lead to misinterpretation of CBC data. Current Interpretive Data was last revised on 2017. Testing performed by: [facility], [address] [place] [phone] Lymphocyte pct 24.5 % [facility] Comment: Interpretive Data Percent cell count reference ranges are not reported, since discordance with absolute values may lead to misinterpretation of CBC data. Current Interpretive Data was last revised on 2017. Testing performed by: [facility], [address] [place] [phone] Monocyte pct 14.7 % [facility] Comment:Testing performed by : [facility], [address] [place] [phone] Eosinophil pct 1.0 % [facility] Comment:Testing performed by : [facility], [address] [place] [phone] Basophil pct 0.7 % [facility] Comment:Testing performed by : [address] [phone] Blood 10/03/2023 11:0 6 AM CDT 10/03/2023 11:09 AM CDT Katja Linares MD LAB BLOOD ORDERABLES Caitlyn dominguez Result [facility] [place] [address] * (ABNORMAL) CBC with auto differential (10/03/2023 11:06 AM CDT) WBC 4.3 3.8 - 9.8 K/cumm Comment:Testing performed by : [facility], [address] [place] [phone] Hgb 8.3(L) 12.1 - 15.1 g/dL [facility] Comment:Testing performed by : [address] [phone] Hct 25.8(L) 36.1 - 44.3 % [facility] Comment:Testing performed by : [address] [phone] Plt 187 140 - 440 K/cumm [facility] Comment:Testing performed by : [facility], [address] [place] [phone] MPV 8.6 6.8 - 10.4 fL [facility] Comment:Testing performed by : [address] [phone] RBC 3.01(L) 3.90 - 5.00 M/cumm [facility] Comment:Testing performed by : [address] [phone] MCV 86.0 80.0 - 97.6 fL [facility] Comment:Testing performed by : [facility], [address] [place] [phone] MCH 27.5 26.7 - 33.7 pg [facility] Comment:Testing performed by : [address] [phone] MCHC 31.9(L) 32.7 - 35.5 g/dL [facility] Comment:Testing performed by : [address] [phone] RDW CV 15.1(H) 11.8 - 14.6 % [facility] Comment:Testing performed by : [facility], [address] [place] [phone] NRBC abs 0.00 0.00 - 0.01 K/cumm VALENTE RAMIREZ Comment:Testing performed by : [facility], [address] [place] [phone] Blood 10/03/2023 11:0 6 AM CDT 10/03/2023 11:09 AM CDT us Katja Linares MD LAB BLOOD ORDERABLES Caitlyn l Result [facility] Department [place] [address] * (ABNORMAL) Comprehensive metabolic panel (10/03/2023 11:06 AM CDT) Sodium 139 135 - 145 mmol/L Comment:Testing performed by : [facility], [address] [place] [phone] Potassium, pl 4.5 3.3 - 4.9 mmol/L VALENTE RAMIREZ Comment:Testing performed by : [facility], [address] [place] [phone] Chloride 105 97 - 110 mmol/L VALENTE RAMIREZ Comment:Testing performed by : [facility], [address] [place] [phone] CO2 26 22 - 32 mmol/L VALENTE RAMIREZ Comment:Testing performed by : [facility], [address] [place] [phone] Anion gap 8 2 - 15 mmol/L VALENTE RAMIREZ Comment:Testing performed by : [facility], [address] [place] [phone] BUN 18 6 - 25 mg/dL VALENTE RAMIREZ Comment:Testing performed by : [facility], [address] [place] [phone] Creatinine 1.48(H) 0.60 - 1.10 mg/dL VALENTE RAMIREZ Comment:Testing performed by : [facility], [address] [place] [phone] Glucose 94 70 - 199 mg/dL [facility]ER [facility] Comment: Interpretive Data Fasting glucose >/= 126 [...] Current interpretive data was last revised 2022. Testing performed by: [facility], [address] [place] [phone] Calcium 10.4(H) 8.5 - 10.3 mg/dL [facility] Comment:Testing performed by : [address] [phone] Bilirubin, total 0.4 0.1 - 1.2 mg/dL [facility] Comment:Testing performed by : [facility], [address] [place] [phone] Protein, pl 7.5 6.5 - 8.5 g/dL [facility] Comment:Testing performed by : [facility], [address] [place] [phone] Albumin 4.5 3.5 - 5.0 g/dL [facility] Comment:Testing performed by : [address] [phone] Alk phos 84 40 - 130 Units/L [facility] Comment:Testing performed by : [facility], [address] [place] [phone] ALT 144(H) 7 - 45 Units/L [facility] Comment:Testing performed by : [address] [phone] AST 131(H) 10 - 45 Units/L [facility] Comment:Testing performed by : [address] [phone] Blood 10/03/2023 11:0 6 AM CDT 10/03/2023 11:09 AM CDT us Katja Linares MD LAB BLOOD ORDERABLES Caitlyn dominguez Result [facility] Department [place] [address] documented in this encounter Visit Diagnoses Diagnosis Anemia, unspecified type documented in this encounter Care Teams Seed Buyer Relationship Specialty Start Date End Date Cristian Ling MD [address] [place] [address] PCP - General 10/16/16 documented as of this encounter
--- OUTSIDE RECORDS SUMMARY | 2024-06-12 03:55 | XMS_ITS | Encounter Summary ---
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 Gender Identity Female 02/07/2021 4:33 PM CDT Sexual Orientation Straight 02/07/2021 4: 33 PM CDT documented as of this encounter Medications at Time of Discharge alendronate (FOSAMAX) 70 mg tablet TAKE 1 TABLET BY MOUTH ONE TIME PER WEEK 0 9 apixaban (Eliquis) 5 mg tabletIndications:a trial fibrillation Take 1 tablet (5 mg total) by mouth 2 (two) times a day 60 tablet 3 atorvastatin (LIPITOR) 80 mg tablet Take 1 tablet (80 mg total) by mouth nightly 30 tablet 11 3 calcium carbonate-vitamin D3 1,250mg (500mg elemental) - 5 mcg (200 units) per tablet Take 1 tablet by mouth daily 30 tablet 11 3 diclofenac sodium (VOLTAREN) 1 % gel Apply 2 g topically 3 (three) times a day 20 g 3 ezetimibe (ZETIA) 10 mg tablet TAKE 1 TABLET BY MOUTH EVERY DAY 90 tablet 3 2 linaCLOtide (Linzess) 145 mcg capsuleIndications: Constipation Predominant Irritable Bowel Syndrome Take 1 capsule (145 mcg total) by mouth daily before breakfast 30 capsule 3 metoprolol XL (TOPROL-XL) 25 mg extended release tabletIndications:P aroxysmal atrial fibrillation with RVR (HCC) Take 1 tablet (25 mg total) by mouth daily 30 tablet [address] (PROTONIX) 40 mg EC tabletIndications:T reatment of Non-Bleeding Gastric Disorder Take 1 tablet (40 mg total) by mouth daily 30 tablet 11 3 ondansetron ODT (ZOFRAN-ODT) 4 mg disintegrating tablet Take 1 tablet (4 mg total) by mouth every 8 (eight) hours as needed for nausea or vomiting 20 tablet 3 06/19/19 24 acetaminophen 500 mg capsule Take 2 capsules (1,000 mg total) by mouth 3 (three) times a day 30 tablet 3 02/23/20 24 amiodarone (PACERONE) 400 mg tablet Take 1 tablet (400 mg total) by mouth daily 30 tablet 11 3 08/21/19 24 cannabidiol, CBD, (medical cannabis) each 1 Dose 3 (three) times a day as needed Tablets 11/25/19 24 cholecalciferol (VITAMIN D-3) 1,000 unit tablet Take 1 tablet (1,000 Units total) by mouth daily 11/25/19 24 clopidogreL (PLAVIX) 75 mg tablet Take 1 tablet (75 mg total) by mouth daily 90 tablet 3 2 08/20/19 24 cyanocobalamin (Vitamin B-12) 1,000 mcg tablet Take 2 tablets (2,000 mcg total) by mouth daily 11/25/[address] (VOLTAREN) 75 mg EC tablet Take 1 tablet (75 mg total) by mouth 2 (two) times a day 0 11/25/19 24 gabapentin (NEURONTIN) 100 mg capsule Take 2 capsules (200 mg total) by mouth 2 (two) times a day 120 capsule 11 3 11/25/19 24 metoprolol tartrate (LOPRESSOR) 25 mg immediate release tablet Take 1 tablet (25 mg total) by mouth daily as needed (to be given if pt has palpitations and is sympotmatic) 0 3 12/03/19 24 sertraline (ZOLOFT) 100 mg tablet Take 0.5 tablets (50 mg total) by mouth daily 0 02/23/20 24 documented as of this encounter Discharge Disposition Disposition Code Departure Means Destination Discharge to home or self care documented in this encounter Plan of Treatment Not on file documented as of this encounter Procedures Procedure Name Priority Date/Time Associated Diagnosis Comments XR WRIST LEFT 3 OR MORE VIEWS Schedule Routine, Read Routine (OP Routine) 04/11/2023 10:31 AM CDT Left wrist pain documented in this encounter Results * XR Wrist Left 3 or More Views (04/11/2023 10:31 AM CDT) Anatomical Region Laterality Modality Upper Extremities, Wrist Left Compute d Radiography 04/11/2023 11:0 1 AM CDT Impressions 04/11/2023 11:01 AM CDT 1. ??Healing impacted intra-articular distal right radius fracture. 2. ??Possible nondisplaced healing fracture of the distal left radius. Electronically signed by: Arie Morris MD Narrative 04/11/2023 11:01 AM CDT EXAMINATION: XR WRIST LEFT 3 OR MORE VIEWS, XR WRIST RIGHT 3 OR MORE VIEWS HISTORY: ??Bilateral wrist pain, fracture FINDINGS: 4 radiographs of the right wrist for interpretation. ??No significant interval change in the healing impacted distal radius intra-articular fracture. ??There is osseous demineralization which limits evaluation for subtle nondisplaced fracture. ??Chondrocalcinosis. ??Positive ulnar variance with nonspecific cystic change in the lunate which may relate ulnar lunate abutment. 4 radiographs of the left wrist were submitted for interpretation. There is subtle linear sclerosis of the distal radius which may represent a nondisplaced mildly impacted distal radial fracture. Positive ulnar variance with nonspecific cystic change in the lunate, may relate to ulnar lunate abutment. ??Chondrocalcinosis. ??Osseous demineralization. Procedure Note Arie Morris MD - 04/11/2023 EXAMINATION: XR WRIST LEFT 3 OR MORE VIEWS, XR WRIST RIGHT 3 OR MORE VIEWS HISTORY: Bilateral wrist pain, fracture FINDINGS: 4 radiographs of the right wrist for interpretation. No significant interval change in the healing impacted distal radius intra-articular fracture. There is osseous demineralization which limits evaluation for subtle nondisplaced fracture. Chondrocalcinosis. Positive ulnar variance with nonspecific cystic change in the lunate which may relate ulnar lunate abutment. 4 radiographs of the left wrist were submitted for interpretation. There is subtle linear sclerosis of the distal radius which may represent a nondisplaced mildly impacted distal radial fracture. Positive ulnar variance with nonspecific cystic change in the lunate, may relate to ulnar lunate abutment. Chondrocalcinosis. Osseous demineralization. IMPRESSION: 1. Healing impacted intra-articular distal right radius fracture. 2. Possible nondisplaced healing fracture of the distal left radius. Electronically signed by: Arie Morris MD David Shaw MD IMG XR PROCEDURES Final Resul t documented in this encounter Visit Diagnoses Diagnosis Left wrist pain Pain in joint, forearm documented in this encounter Additional Health Concerns Infection Onset Date Last Indicated Resolved Time MRSA Comment:IP Review- Patient has documentation of cultures positive for MRSA from outside facility on 02/12. Isolation flag placed for this reason. Please contact IP for any questions or concerns. 02/18/23 12:07 PM Lena Mccoy 02/18/2023 02/18/2023 3:05 AM FIREARMS ASSEMBLY SUPERVISOR documented as of this encounter Care Teams Filling Station Equipment Mechanic Relationship Specialty Start Date End Date Cristian Ling MD [address] [place] [address] PCP - General 10/16/16 documented as of this encounter
--- OUTSIDE RECORDS SUMMARY | 2024-06-12 03:55 | XMS_ITS | Encounter Summary ---
Author Organization 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 She did not receive the letter I mailed her 08/21/23 re: lab results. She requested I mail again. Letter reprinted and sent to be mailed again to pt. * Telephone Encounter - Ella Diggs - 09/03/2023 10:34 AM CDT Rivera Pt is calling in regards to speaking to a nurse about her lab results. documented in this encounter Plan of Treatment Not on file documented as of this encounter Visit Diagnoses Not on filedocumented in this encounter Care Teams Wall Cleaner Relationship Specialty Start Date End Date Cristian Ling MD [address] [place] [address] PCP - General 10/16/16 documented as of this encounter
--- OUTSIDE RECORDS SUMMARY | 2024-06-12 03:55 | XMS_ITS | Encounter Summary ---
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 Gender Identity Female 02/07/2021 4:33 [...] Priority Date/Time Associated Diagnosis Comments XR WRIST RIGHT 3 OR MORE VIEWS Schedule Routine, Read Routine (OP Routine) 04/11/2023 10:31 AM CDT Right wrist pain documented in this encounter Results * X-ray wrist right 3+ views (04/11/2023 10:31 AM CDT) Anatomical Region Laterality Modality Upper Extremities, Wrist Right Compute d Radiography 04/11/2023 11:0 1 AM [...] in this encounter Visit Diagnoses Diagnosis Right wrist pain Pain in joint, forearm documented in this encounter Additional Health Concerns Infection Onset Date Last Indicated Resolved Time MRSA Comment:IP Review- Patient has documentation of cultures positive for MRSA from outside facility on 02/12. Isolation flag placed for this reason. Please contact IP for any questions or concerns. 02/18/23 12:07 PM Lena Mccoy 02/18/2023 02/18/2023 3:05 AM CHUCKING AND SAWING MACHINE OPERATOR documented as of this encounter Care Teams Assistant Restaurant General Manager Relationship Specialty Start Date End Date Cristian Ling MD [address] [place] [address] PCP - General 10/16/16 documented as of this encounter
--- OUTSIDE RECORDS SUMMARY | 2024-06-12 03:55 | XMS_ITS | Encounter Summary ---
Author Organization [facility] Address [address] [place] [address] Phone Care Team Providers Care Fancy Wire Drawer Name Role Phone Cristian Ling MD Primary Care Prov ider Encounter Details Date Type Department Care Team (Late st Contact Info) Description 04/17/2023 Telephone [facility] Orthopaedic Surgery [address] [facility] [address] [place] [address] Jamari Rodríguez MD [address] [facility] [address] [place] [address] Social History Tobacco Use Types Packs/Day Years [...] on file 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 Gender Identity Female 02/07/2021 4:33 PM CDT Sexual Orientation Straight 02/07/2021 4: 33 PM CDT documented as of this encounter Miscellaneous Notes * Telephone Encounter - Kristian Garcia RN - 04/17/2023 2:22 PM CDT Scanned pre-procedure injection instructions to patient documented in this encounter Plan of Treatment [...] 02/18/23 12:07 PM Lena Mccoy 02/18/2023 02/18/2023 4 3:05 AM COMBUSTION ENGINEER documented as of this encounter Care Teams Fancy Wire Drawer Relationship Specialty Start Date End Date Cristian Ling MD [address] [place] [address] PCP - General 10/16/16 documented as of this encounter
--- OUTSIDE RECORDS SUMMARY | 2024-06-12 03:55 | XMS_ITS | Encounter Summary ---
Author Organization [facility] Address [address] [place] [address] Phone Care Team Providers Care Structural Steel Worker Name Role Phone Cristian Ling MD Primary Care Prov ider Encounter Details Date Type Department Care Team (Late st Contact Info) Description 10/16/2023 Telephone [facility] Cardiology [address] [facility] Advanced [facility] 8th [place] [address] [place] [address] Sami Stafford MD [address] [facility] [address] [place], [place] [id number] Social History Tobacco Use Types Packs/Day Years [...] on file 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 See enc 09/26/23. * Telephone Encounter - Viki Faith - 10/16/2023 2:37 PM CDT PT REQ CALL BACK REGARDING BP, PLS CALL documented in this encounter Plan of Treatment Not on file documented as of this encounter Visit Diagnoses Not on filedocumented in this encounter Care Teams Structural Steel Worker Relationship Specialty Start Date End Date Cristian Ling MD [address] [place] [address] PCP - General 10/16/16 documented as of this encounter
--- OUTSIDE RECORDS SUMMARY | 2024-06-12 03:55 | XMS_ITS | Encounter Summary ---
Author Organization [facility] Address [address] [place] [address] Phone Care Team Providers Care Cpc Name Role Phone Cristian Ling MD Primary Care Prov ider Reason for Visit * Reason Onset Date Comments iron infusion 10/06/2023 Encounter Details Date Type Department Care Team (Late st Contact Info) Description 10/06/2023 Telephone [facility] Oncology [address] [facility] [address] [place] [address] Jody Foley iron infusion Social History Tobacco Use Types Packs/Day Years [...] on file Legal Sex Female 7:12 AM SUBSCRIPTION 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 Infed approved, patient will call back with preference of day. documented in this encounter Plan of Treatment Not on file documented as of this encounter Visit Diagnoses Not on filedocumented in this encounter Care Teams Cpc Relationship Specialty Start Date End Date Cristian Ling MD [address] [place] [address] PCP - General 10/16/16 documented as of this encounter
--- OUTSIDE RECORDS SUMMARY | 2024-06-12 03:55 | XMS_ITS | Encounter Summary ---
Author Organization [facility] Address [address] [place] [address] Phone Care Team Providers Care Dyer Helper Name Role Phone Cristian Ling MD Primary Care Prov ider Encounter Details Date Type Department Care Team (Late st Contact Info) Description 10/03/2023 Telephone 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 Pt's last evaluation was in 2021, I attempted to return pt's call to discuss coming in for an evaluation with Dr Del Rio, unfortunately pt's vm was full and I was unable to leave a message. documented in this encounter Plan of Treatment Not on file documented as of this encounter Visit Diagnoses Not on filedocumented in this encounter Care Teams Dyer Helper Relationship Specialty Start Date End Date Cristian Ling MD [address] [place] [address] PCP - General 10/16/16 documented as of this encounter
--- OUTSIDE RECORDS SUMMARY | 2024-06-12 03:55 | XMS_ITS | Encounter Summary ---
Author Organization [facility] Address [address] [place] [address] Phone Care Team Providers Care Material Movers Name Role Phone Cristian Ling MD Primary Care Prov ider Encounter Details Date Type Department Care Team (Late st Contact Info) Description 2023 Telephone [facility] Cardiology [address] [facility] Advanced [facility] 8th [place] [address] [place] [address] Sami Stafford MD [address] [facility] [address] [place], [place] [id number] Social History Tobacco Use Types Packs/Day Years [...] on file Legal Sex Female 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 * Telephone Encounter - Ella Diggs - 2023 8:56 AM CDT [facility] Endoscopy is calling in regards to speaking to a nurse about the patient being [facility]. documented in this encounter Plan of Treatment [...] Lena Mccoy 02/18/2023 02/18/2023 4 3:05 AM STEAM SHOVELMAN documented as of this encounter Care Teams Material Movers Relationship Specialty Start Date End Date Cristian Ling MD [address] [place] [address] PCP - General 10/16/16 documented as of this encounter
--- OUTSIDE RECORDS SUMMARY | 2024-06-12 03:55 | XMS_ITS | Encounter Summary ---
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 Gender Identity Female 02/07/2021 4:33 PM CDT Sexual Orientation Straight 02/07/2021 4: 33 PM CDT documented as of this encounter Plan of Treatment Not on file documented as of this encounter Visit Diagnoses Diagnosis Iron deficiency anemia, unspecified iron deficiency anemia type- Primary documented in this encounter Orders Appointment Requests Count Last Ordered Date Fi rst Ordered Date ONCBCN INFUSION APPT REQUEST 1 10/30/2023 documented in this encounter Care Teams Barrel Ribs Solderer Relationship Specialty Start Date End Date Cristian Ling MD [address] [place] [address] PCP - General 10/16/16 documented as of this encounter
--- OUTSIDE RECORDS SUMMARY | 2024-06-12 03:55 | XMS_ITS | Encounter Summary ---
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 Denies 05/13/2023 Comments No Sex and Gender Information Value Date Recorded Sex Assigned at Not on file Legal Sex Female 7:12 AM SENIOR FINANCIAL ANALYST Gender Identity Female 02/07/2021 4:33 PM CDT Sexual Orientation Straight 02/07/2021 4: 33 PM CDT documented as of this encounter Miscellaneous Notes * Result Encounter Note - Sami Stafford MD - 08/20/2023 3:12 PM SENIOR FINANCIAL ANALYST Potassium is 5.0, high normal. Creatinine is 1.6, slightly higher than her prior baseline. AST and ALT are elevated less than 3 times upper limit of normal. - I would advise she increase her hydration. - let's reduce amiodarone to 200 mg daily and repeat a hepatic function panel after 1 month. If ASTand ALT are still elevated, we will hold her statin and repeat. - chronic anemia is stable, hgb 8.4. - lipids are acceptable. OR FINANCIAL ANALYST documented in this encounter Plan of Treatment Not on file documented as of this encounter Procedures Procedure Name Priority Date/Time Associated Diagnosis Comments EGFR Routine 08/20/2023 10:43 AM SENIOR FINANCIAL ANALYST Chronic heart failure with preserved ejection fraction (CMS/HCC) (HCC) Paroxysmal atrial fibrillation (CMS/HCC) (HCC) DIFFERENTIAL AUTO Routine 08/20/2023 10: 43 AM SENIOR FINANCIAL ANALYST Paroxysmal atrial fibrillation (CMS/HCC) (HCC) CBC WITH AUTO DIFFERENTIAL Routine 08/20/2023 10:43 AM SENIOR FINANCIAL ANALYST Paroxysmal atrial fibrillation (CMS/HCC) (HCC) LIPID PANEL Routine 08/20/2023 10:43 AM SENIOR FINANCIAL ANALYST 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 73 m2 Comment: Interpretive Data [...] interpretive data was last reviewed 2021. Blood 08/20/2023 10:4 3 AM SENIOR FINANCIAL ANALYST 08/20/2023 11:15 AM SENIOR FINANCIAL ANALYST us Sami Stafford MD LAB BLOOD ORDERABLES Final Re sult [facility] [place] [address] * Differential, auto (08/20/2023 10:43 AM SENIOR FINANCIAL ANALYST) Neutrophil abs 2.9 1.5 - 6.5 K/cumm Imm gran abs 0.0 0.0 - 0.1 K/cumm [facility] Lymphocyte abs 0.9 0.8 - 3.3 K/cumm [facility] Monocyte abs 0.5 0.2 - 0.8 K/cumm [facility] Eosinophil abs 0.1 0.0 - 0.5 K/cumm [facility] Basophil abs 0.0 0.0 - 0.1 K/cumm [facility] Neutrophil pct 64.9 % [facility] Comment: Interpretive Data Percent cell count reference ranges are not reported, since discordance with absolute values may lead to misinterpretation of CBC data. Current Interpretive Data was last revised on 2017. Imm gran pct 0.2 % [facility] Comment: Interpretive Data Percent cell count reference ranges are not reported, since discordance with absolute values may lead to misinterpretation of CBC data. Current Interpretive Data was last revised on 2017. Lymphocyte pct 20.0 % [facility] Comment: Interpretive Data Percent cell count reference ranges are not reported, since discordance with absolute values may lead to misinterpretation of CBC data. Current Interpretive Data was last revised on 2017. Monocyte pct 12.2 % [facility] Comment: Interpretive Data Percent cell count reference ranges are not reported, since discordance with absolute values may lead to misinterpretation of CBC data. Current Interpretive Data was last revised on 2017. Eosinophil pct 1.8 % [facility] Comment: Interpretive Data Percent cell count reference ranges are not reported, since discordance with absolute values may lead to misinterpretation of CBC data. Current Interpretive Data was last revised on 2017. Basophil pct 0.9 % [facility] Comment: Interpretive Data Percent cell count reference ranges are not reported, since discordance with absolute values may lead to misinterpretation of CBC data. Current Interpretive Data was last revised on 2017. Blood 08/20/2023 10:4 3 AM SENIOR FINANCIAL ANALYST 08/20/2023 11:08 AM SENIOR FINANCIAL ANALYST us Sami Stafford MD LAB BLOOD ORDERABLES Final Re sult [facility] [place] [address] * (ABNORMAL) Comprehensive metabolic panel (08/20/2023 10:43 AM SENIOR FINANCIAL ANALYST) Sodium 139 135 - 145 mmol/L Potassium, pl 5.0(H) 3.3 - 4.9 mmol/L [facility] Chloride 106 97 - 110 mmol/L [facility] CO2 26 22 - 32 mmol/L [facility] Anion gap 7 2 - 15 mmol/L [facility] BUN 22 6 - 25 mg/dL [facility] Creatinine 1.63(H) 0.60 - 1.10 mg/dL [facility] Glucose 84 70 - 199 mg/dL [facility] Comment: Interpretive Data Fasting glucose >/= [...] interpretive data was last revised 2022. Calcium 10.0 8.5 - 10.3 mg/dL [facility] Bilirubin, total 0.5 0.1 - 1.2 mg/dL [facility] Protein, pl 7.5 6.5 - 8.5 g/dL [facility] Albumin 4.2 3.5 - 5.0 g/dL [facility] Alk phos 81 40 - 130 Units/L [facility] ALT 108(H) 7 - 45 Units/L [facility] AST 95(H) 10 - 45 Units/L [facility] Blood 08/20/2023 10:4 3 AM SENIOR FINANCIAL ANALYST 08/20/2023 11:08 AM SENIOR FINANCIAL ANALYST us Sami Stafford MD LAB BLOOD ORDERABLES Final Re sult [facility] [place] [address] * Lipid panel (08/20/2023 10:43 AM SENIOR FINANCIAL ANALYST) Cholesterol 158 30 - 199 mg/dL Comment: Interpretive Data Ages < or = 19 years ??Acceptable: ? <170 mg/dL ??Borderline high: ??170-199 mg/dL ??High: ? >or= 200 mg/dL Ages > or = 20 years ??Desirable: ?<200 mg/dL ??Borderline high: ??200-239 mg/dL ??High: ? >or= 240 mg/dL Literature References: 1. Expert Panel on Integrated Guidelines for Cardiovascular Health and Risk Reduction in Children and Adolescents. Pediatrics 2011;128:S213 2. NCEP Expert Panel. Circulation 2004;110:227 Current Interpretive Data was last revised on 2018. Triglycerides 109 <=149 mg/dL [facility] Comment: Interpretive Data Ages < or = 9 years ??Acceptable: ? <75 mg/dL ??Borderline high: ??75-99 mg/dL ??High: ? >or= 100 mg/dL Ages 10 to 20 years ??Acceptable: ? <90 mg/dL ??Borderline high: ??90-129 mg/dL ??High: ? >or= 130 mg/dL Ages > or = 20 years ??Desirable: ?<150 mg/dL ??Borderline high: ??150-199 mg/dL ??High: ? 200-499 mg/dL ?Very high: ?? >or= 499 mg/dL Literature References: 1. Expert Panel on Integrated Guidelines for Cardiovascular Health and Risk Reduction in Children and Adolescents. Pediatrics 2011;128:S213 2. NCEP Expert Panel. Circulation 2004;110:227 Current Interpretive Data was last revised on 2018. HDL 60 >=40 mg/dL [facility] Comment: Interpretive Data Ages < or = 19 years ??Acceptable: ? >45 mg/dL ??Borderline low: ?? 40-45 mg/dL ??Low: ? <40 mg/dL Ages > or = 20 years ??Desirable: ?>or= 60 mg/dL ??Low: ? <40 mg/dL Literature References: 1. Expert Panel on Integrated Guidelines for Cardiovascular Health and Risk Reduction in Children and Adolescents. Pediatrics 2011;128:S213 2. NCEP Expert Panel. Circulation 2004;110:227 Current Interpretive Data was last revised on 2018. LDL, calculated 76 <=129 mg/dL [facility] Comment: Interpretive Data Ages < or = 19 years ??Acceptable: ? <110 mg/dL ??Borderline high: ??110-129 mg/dL ??High: ?>or= 130 mg/dL Ages > or = 20 years ??Optimal: ? <100 mg/dL ??Near optimal: ?100-129 mg/dL ??Borderline high: ?? 130-159 mg/dL ??High: ?>160 mg/dL Literature References: 1. Expert Panel on Integrated Guidelines for Cardiovascular Health and Risk Reduction in Children and Adolescents. Pediatrics 2011;128:S213 2. NCEP Expert Panel. Circulation 2004;110:227 Current Interpretive Data was last revised on 2018. Non-HDL Cholesterol 98 mg/dL [facility] Comment: Interpretive Data Ages < or = 19 years ??Acceptable: ?<120 mg/dL ??Borderline high: ??120-144 mg/dL ??High: ?>145 mg/dL Ages > or = 20 years ??When triglycerides are >200 mg/dL, Non-HDL cholesterol is a secondary target of ? therapy with treatment goals that are 30 mg/dL greater than the LDL cholesterol target. ? Literature References: 1. Expert Panel on Integrated Guidelines for Cardiovascular Health and Risk Reduction in Children and Adolescents. Pediatrics 2011;128:S213 2. NCEP Expert Panel. Circulation 2004;110:227 Current Interpretive Data was last revised on 2018. Chol/HDL ratio 3 [facility] Blood 08/20/2023 10:4 3 AM SENIOR FINANCIAL ANALYST 08/20/2023 11:08 AM SENIOR FINANCIAL ANALYST us Sami Stafford MD LAB BLOOD ORDERABLES Final Re sult Performing Organization Address [facility] Co de Phone Number [facility] Department [place] [address] * (ABNORMAL) CBC with auto differential (08/20/2023 10:43 AM SENIOR FINANCIAL ANALYST) Pathologist [facility] WBC 4.4 3.8 - 9.9 K/cumm Hgb 8.4(L) 11.9 - 15.5 g/dL [facility] Hct 26.8(L) 35.6 - 45.5 % [facility] Plt 185 150 - 400 K/cumm [facility] MPV 12.3 9.1 - 12.3 fL [facility] RBC 2.84(L) 3.90 - 5.20 M/cumm [facility] MCV 94.4 81.3 - 96.4 fL [facility] MCH 29.6 27.1 - 33.3 pg [facility] MCHC 31.3(L) 32.3 - 35.7 g/dL [facility] RDW CV 13.2 11.1 - 14.9 % [facility] RDW SD 45.5 35.7 - 48.1 fL [facility] NRBC abs 0.00 0.00 - 0.01 K/cumm [facility] Blood 08/20/2023 10:4 3 AM SENIOR FINANCIAL ANALYST 08/20/2023 11:08 AM SENIOR FINANCIAL ANALYST us Sami Stafford MD LAB BLOOD ORDERABLES Final Re sult Performing Organization Address City/[facility]/ZIP Co de Phone Number 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
--- OUTSIDE RECORDS SUMMARY | 2024-06-12 03:55 | XMS_ITS | Encounter Summary ---
Author Organization [facility] Address [address] [place] [address] Phone Care Team Providers Care Forestry Contractor Name Role Phone Cristian Ling MD Primary Care Prov ider Reason for Visit * Reason Onset Date Comments ROV 08/20/23, lab results, recommendations 024 Encounter Details Date Type Department Care Team (Late st Contact Info) Description 08/20/2023 Telephone [facility] Cardiology [address] 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 * Telephone Encounter - Sheila Pacheco RN - 09/25/2023 2:52 PM CDT Images from the original note were not included. Sheila Pacheco RN P [facility] Repeat LFT's due ~09/22/23 after reducing amio. Results? Attempted to contact pt to remind her of lab work, no answer, no VM box set up. * Addendum Note - Sheila Pacheco RN - 08/21/2023 1:57 PM CSTAddended by: SHEILA PACHECO on: 08/21/2023 01:57 PM Modules accepted: Orders WORKER * Telephone Encounter - Sheila Pacheco RN - 08/21/2023 1:55 PM DOCKWORKER Spoke with pt to relay lab results, recs. She requested I mail her a letter with information. Letter sent. Repeat labs sent to [facility] per pt request. Decreased dose of amio sent to preferred pharmacy.Will watch for results. WORKER * Telephone Encounter - Sheila Pacheco RN - 08/20/2023 4:04 PM DOCKWORKER Attempted to contact pt to relay results. No answer, VM box full. Will call again tomorrow. WORKER * Telephone Encounter - Sheila Pacheco RN - 08/20/2023 3:37 PM DOCKWORKER Images from the original note were not included. Per Dr. Stafford, lab results 08/20/23: Sami Stafford MD P [facility] Card [facility] Clinical Pool Potassium is 5.0, high normal. Creatinine is [...] stable, hgb 8.4. - lipids are acceptable. WORKER documented in this encounter Plan of Treatment Scheduled Orders Name Type Priority Associated Diagnoses Orde r Schedule Hepatic function panel Lab Routine Medication course changed Elevated liver enzymes Expected: 09/21/2023 (Approximate), Expires: 08/20/2024 documented as of this encounter Visit Diagnoses Diagnosis Medication course changed- Primary Elevated liver enzymes Other nonspecific abnormal serum enzyme levels documented in this encounter Discontinued Medications Medication Sig Discontinue Reason Start Date End Da te amiodarone (PACERONE) 400 mg tablet Take 1 tablet (400 mg total) by mouth daily Reorder 03/21/2023 08/21/2023 documented as of this encounter Care Teams Forestry Contractor Relationship Specialty Start Date End Date Cristian Ling MD [address] [place] [address] PCP - General 10/16/16 documented as of this encounter
--- OUTSIDE RECORDS SUMMARY | 2024-06-12 03:55 | XMS_ITS | Encounter Summary ---
Author Organization [facility] Address [address] [place] [address] Phone Care Team Providers Care Steel Engraver Name Role Phone Cristian Ling MD Primary Care Prov ider Reason for Visit * Consultation (Routine) - Closed Specialty Diagnoses / Procedures Referred By Contac t Referred To Contact Cardiology Diagnoses Chronic coronary artery disease Hx of CABG Primary hypertension Sami Stafford MD [address] [facility] [address] [place] [address] Phone: tel: fax: [facility] (All Locations) Referral ID Status Reason Start Date Expiration Date V isits Requested Visits Authorized [id number] Closed Specialty Services Required 11/25/2022 11/27/2023 12 12 Encounter Details Date Type Department Care Team (Late st Contact Info) Description 08/20/2023 9:30 AM ASSEMBLER CARBON BRUSHES Office Visit [facility] Cardiology [address] [facility] [address] 8th [place] [address] [place] [id number] Sami Stafford MD [address] [address] [place] [address] Paroxysmal atrial fibrillation (CMS/HCC) (HCC) (Primary Dx); Chronic heart failure with preserved ejection fraction (CMS/HCC) (HCC); Apical variant hypertrophic cardiomyopathy (HCC); Coronary artery disease involving tuolumne coronary artery of tuolumne heart without angina pectoris; Primary hypertension; NSVT (nonsustained ventricular tachycardia) ([facility]); Therapeutic drug monitoring Social History Tobacco Use Types Packs/Day Years [...] on file Legal Sex Female 7:12 AM ASSEMBLER [employer]ON BRUSHES Gender Identity Female 02/07/2021 4:33 PM CDT Sexual Orientation Straight 02/07/2021 4: 33 PM CDT documented as of this encounter Last Filed Vital Signs Vital Sign Reading Time Taken Comments Blood Pressure 116/64 08/20/2023 9:56 AM ASSEMBLER [employer]BON BRUSHES Pulse 61 08/20/2023 9:56 AM ASSEMBLER CARBON BRUSHES Temperature - - Respiratory Rate - - Oxygen Saturation 99% 08/20/2023 9:56 AM ASSEMBLER CARBON BRUSHES Inhaled Oxygen Concentration - - Weight 74.4 kg (164 lb) 08/20/2023 9:56 AM ASSEMBLER CARBON BRUSHES Height 162.6 cm (5' 4 ) 08/20/2023 9:56 AM ASSEMBLER CARBON BRUSHES Body Mass Index 28.15 08/20/2023 9:56 AM ASSEMBLER CARBON BRUSHES documented in this encounter Patient Instructions * Patient Instructions* Sami Stafford MD - 08/20/2023 9:30 AM ASSEMBLER CARBON BRUSHES Would recommend taking apixaban (Eliquis) about 12 hours apart: 8 am, 8 pm. Labs today. *PHILIP Menjivar will call you with the results* Let's continue current medications for now. Please call with any concerns. Have a wonderful spring! MBLER CARBON BRUSHES MBLER CARBON BRUSHES MBLER CARBON BRUSHES documented in this encounter Progress Notes * Sami Stafford MD - 08/20/2023 9:30 AM CST Images from the original note were not included. Department of Medicine Sami Stafford MD, MPHS, [facility] Cardiovascular Division photocomposing keyboard operator Patient Name: Tiera Lobato : 1945 Date of Service: 08/20/2023 DIAGNOSES: Coronary artery disease with myocardial infarction in August 2012 followed by bypass surgery by Dr. Irineo Reinoso with LAWSON to LAD and saphenous vein graft to obtuse marginal. Apical variant hypertrophic cardiomyopathy on CMR 07/25/22 Paroxysmal atrial fibrillation Hypertension. Degenerative disc disease. History of diverticulitis. History of vertigo. History of lower extremity DVT with associated phlebitis in the distant past. Osteoporosis Anemia Dear Dr. Sushil MD: I had the pleasure of seeing Tiera Lobato today for follow-up. She is a 78 y.o. woman with ahistory of coronary disease and myocardial infarction, status post bypass surgery in 2012, apical variant HCM, paroxysmal afib, and hypertension. She was here with her granddaughter Ross. I last saw her 01/13/23. She was in afib with RVR. We increased metoprolol, and she underwent cardioversion 01/20/23. She had a ground level fall 02/06 and broke her right arm. She presented to an OSH 02/11/23 after a dizzy spell, was in afib with RVR. There were challenges with rate control. She underwent successful cardioversion 02/16/23 but had recurrence of afib within a couple hours. Given persistent RVR despite addition of amiodarone and hypotension, she was transferred to [facility] 02/17/23 and was hospitalized till 03/20/23. Of note, her outside hospital course also included MRSA cellulitis and bacteremia and septic pulmonary emboli. She had a complicated hospital course (notes reviewed) at [facility] which included CLAUDIA on CKD3a to Cr 2.0, orthostatic hypotension attributed to prolonged bedrest and limited oral hydration, nausea with unrevealing etiology, and urinary retention attributed to medications. AL amyloid screening labs showed normal kappa/lambda ratio. --- She was in rehab for about a month, is now back at [facility], an assisted living facility. She feels well most of the time, though fatigued. She receives periodic injections for medial R groin pain/neuropathy. She denies shortness of breath, chest discomfort, palpitations, lightheadedness. She has L>R leg swelling, chronic, though variable. No orthopnea or PND. Reviewed seated bps, mostly 120s-140s/50s-60s in the morning, 100s-120s/50s-60s in the afternoon. There are only two readings in the 90s/40s. She felt weaker those days. She tries to walk every day. She utilizes a wheeled walker. Her right arm fracture has healed. Her left arm fracture still has pain when she exerts force with this. Her medications include: Midodrine 5 mg tid prn (7-8, 10-12, 3-4). Has been instructed not to take if bp >100/65 mm Hg. She has only taken it a couple times in the last 4 months. Amiodarone 400 mg daily, atorvastatin 80 mg, apixaban 5 mg bid, ezetimibe, gabapentin 200 mg tid, linzess 145 mcg prn, metoprolol xl 25 mg daily, pantoprazole 40 mg daily, sertraline 50 mg daily. Family history: There is no family history of hypertrophic cardiomyopathy, cardiomyopathy, or sudden cardiac . Outpatient Encounter Medications as of 08/20/2023 Medication Sig Dispense Refill acetaminophen 500 mg capsule Take 2 capsules (1,000 mg total) by mouth 3 (three) times a day 30 tablet 0 alendronate (FOSAMAX) 70 mg tablet TAKE 1 TABLET BY MOUTH ONE TIME PER WEEK 0 amiodarone (PACERONE) 400 mg tablet Take 1 [...] tablet (1,000 Units total) by mouth daily clopidogreL (PLAVIX) 75 mg tablet Take 1 tablet (75 mg total) by mouth daily 90 tablet 3 cyanocobalamin (Vitamin B-12) 1,000 mcg tablet Take 2 tablets (2,000 mcg total) by mouth daily diclofenac DR (VOLTAREN) 75 mg EC tablet Take 1 tablet (75 mg total) by mouth 2 (two) times a day diclofenac sodium (VOLTAREN) 1 % gel Apply 2 g topically 3 (three) times a day 20 g 0 ezetimibe (ZETIA) 10 mg [...] total) by mouth daily [address] (PROTONIX) 40 mg EC tablet Take 1 tablet (40 mg total) by mouth daily 30 tablet 11 sertraline (ZOLOFT) 100 mg tablet Take 0.5 tablets (50 mg total) by mouth daily No facility-administered encounter medications on file as of 08/20/2023. Allergies Allergen Reactions Codeine Hives and Shortness of breath Latex Itching Milk Nausea & Vomiting Tramadol Nausea & Vomiting and Unknown Physical Exam: BP 116/64 Pulse 61 Ht 162.6 cm (5' 4 ) Wt 74.4 kg (164 lb) SpO2 99% BMI 28.15 kg/m?? BP Readings from Last 3 Encounters: 08/20/23 116/64 05/13/23 (!) 175/78 03/21/23 136/65 Wt Readings from Last 3 Encounters: 08/20/23 74.4 kg (164 lb) 03/21/23 75.2 kg (165 lb 12.8 oz) 01/20/23 83 kg (182 lb 15.7 oz) General: older white woman, appears her stated age, no acute distress HEENT: Extraocular muscles intact, conjunctivae clear, anicteric sclerae, + dentures Neck: Supple. No goiter. Jugular venous pressure is normal. Respiratory: Clear to auscultation bilaterally; respirations unlabored. Faint dry basilar crackles. Cardiovascular: bradycardic, regular rhythm. Normal S1 and S2. No S3 or S4. 1- 2/6 systolic murmur RUSB, LLSB. Carotid upstrokes brisk bilaterally and without bruits. Abdomen: soft, non-tender, no palpable masses, no hepatosplenomegaly Extremities: no cyanosis or clubbing. No pitting LE edema. Musculoskeletal: no obvious joint deformities Skin: no obvious rash or bruising Psychiatric: normal affect and mood Neurologic: awake/alert, has a wheeled walker Results: I have personally reviewed the following: Lab Results Component Value Date SODIUM 141 03/20/2023 POTASSIUM 3.4 03/20/2023 BUNSER 8 03/20/2023 BUNSER 7 03/19/2023 BUNSER 5 (L) 03/18/2023 CREATININE 1.22 (H) 03/20/2023 CREATININE 1.42 (H) 03/19/2023 CREATININE 1.26 (H) 03/18/2023 Lab Results Component Value Date CHOL 78 02/18/2023 CHOL 174 05/02/2021 TRIG 124 02/18/2023 TRIG 127 05/02/2021 HDL 16 (L) 02/18/2023 HDL 66 09/04/2015 LDLCALC 37 02/18/2023 LDL 87 09/04/2015 LDL 118 09/04/2012 LDLDIRECT 93 05/02/2021 LDLDIRECT 90 12/23/2018 ECG 12/29/2019 sinus bradycardia, HR 51, anterolateral TWI in I, aVL, V3-6, normal axis, normal PA, QRS and QT intervals. 30-day monitor 05/2022 with paroxysmal afib with RVR, NSVT. ECG/01/13/23 atrial fibrillation with RVR, ventricular rate 133 beats per minute. Normal axis. Lateral T-wave inversion in V5 to V6, 1, and AVL. ECG 08/20/23: Sinus Rhythm, borderline sinus bradycardia at 60 bpm. Normal axis. Voltage criteria for LVH (R(I)+S(III) exceeds 2.50 mV); also satisfied limb-lead criteria, Cornellecriteria, and Mcginnis-Starr criteria. -Nonspecific ST depression + Negative T-waves -Seen with left ventricular hypertrophy (strain); consider Lateral ischemia. Echo 02/20/23: ?Afib during study which is technically difficult: LV size is normal. LVEF 55-60%. Apical hypertrophy present. Normal RV function. No significant valve disease. Estimated PASP 20mmHg+RA pressure. RA pressure is normal. Assessment/Plan: Tiera Lobato is a 78 y.o. female with the following: # Chronic HFpEF, euvolemic at present, not on a scheduled diuretic. # Paroxysmal atrial fibrillation with RVR, in sinus rhythm today. Continue amiodarone 400 mg daily and metoprolol xl 25 mg daily. We discussed the risk of adverse effects with amiodarone (including lung, liver, thyroid, skin, ophthalmologic, and neurologic toxicities) and need for ongoing, long-term monitoring. Would consider reducing amiodarone to 200 mg daily in the future. She did have a very complicated course in fall 2022 with difficulty controlling her atrial arrhythmia, so we will continue her current medications for now. - continue apixaban for anticoagulation # Therapeutic drug monitoring: Long-term amiodarone use, monitoring for toxicities: ECG yearly: last 08/20/23 TSH yearly: last 02/18/23 AST, ALT yearly: last 02/23/23 Eye exam yearly: last 07/2023 CXR yearly: last 02/19/23 Dermatologic exam prn - will recheck a CMP given amiodarone initiation # History of anemia, on chronic anticoagulation Check CBC. # Apical variant HCM She had a 30-day monitor in 05/2022 with NSVT, CMR 07/2022 with max thickness 1.7 cm. We have discussed the heritable nature of this condition and risk of sudden cardiac , the roleof ICDs for primary prevention of SCD. Per the HCM-SCD risk calculator, she has 3.2% SCD risk over 5 years. There is a class 2b (may be considered) indication for an ICD. Continue metoprolol xl. I have previously recommended screening of children and siblings for HCM with an echo. # CAD with prior VT and CABG in 2012 (LAWSON-LAD, SVG-OM). Nuclear stress test 03/2022 was negative for ischemia. Continue metoprolol, atorvastatin, ezetimibe. Not on antiplatelet agent given concomitant anticoagulation. Recheck lipids. # History of hypertension, with periodic hypotension Continue metoprolol. She has prn midodrine for rare hypotensive spells. # NSVT on monitor 05/2022. Continue metoprolol. # Osteoporosis with history of pathologic fractures I asked her to follow up with you regarding duration of alendronate/management of OP. She states she has been on alendronate for many years. -- Addendum: CMP with K 5.0, Cr 1.6 slightly elevated from prior baseline 1.2-1.4, AST and ALT elevated <3x upper limit of normal. Will reduce amiodarone to 200 mg daily, repeat HFP after 1 month. If AST/ALT are still elevated, will hold her statin and repeat. Increase hydration. Return to clinic in 6 months. I appreciate the opportunity to participate in Ms. Lobato's care. Please feel free to contact me at with any questions or concerns. Sincerely, Sami Stafford MD, MPHS, [facility] photocomposing keyboard operator Cardiovascular Division [facility] in [facility] --- Please note: This note was generated in part using voice-recognition software and may contain health information specialist errors. MBLER CARBON BRUSHES documented in this encounter Plan of Treatment Not on file documented as of this encounter Procedures Procedure Name Priority Date/Time Associated Diagnosis Comments ECG 12-LEAD Routine 08/20/2023 Chronic heart failure with preserved ejection fraction (CMS/HCC) (HCC) documented in this encounter Results * (ABNORMAL) CBC with auto differential (08/20/2023 10:43 AM ASSEMBLER CARBON BRUSHES) WBC 4.4 3.8 - 9.9 K/cumm Hgb 8.4(L) 11.9 - 15.5 g/dL [facility] Hct 26.8(L) 35.6 - 45.5 % [facility] Plt 185 150 - 400 K/cumm [facility] MPV 12.3 9.1 - 12.3 fL [facility] RBC 2.84(L) 3.90 - 5.20 M/cumm [facility] MCV 94.4 81.3 - 96.4 fL [facility] MCH 29.6 27.1 - 33.3 pg [facility] MCHC 31.3(L) 32.3 - 35.7 g/dL [facility] RDW CV 13.2 11.1 - 14.9 % [facility] RDW SD 45.5 35.7 - 48.1 fL [facility] NRBC abs 0.00 0.00 - 0.01 K/cumm [facility] Blood 08/20/2023 10:4 3 AM ASSEMBLER CARBON BRUSHES 08/20/2023 11:08 AM ASSEMBLER CARBON BRUSHES us Sami Stafford MD LAB BLOOD ORDERABLES Final Re sult [facility] [place] [address] * Lipid panel (08/20/2023 10:43 AM ASSEMBLER CARBON BRUSHES) Cholesterol 158 30 - 199 mg/dL Comment: [...] revised on 2018. Triglycerides 109 <=149 mg/dL [facility] Comment: Interpretive Data Ages < or = [...] revised on 2018. HDL 60 >=40 mg/dL [facility] Comment: Interpretive Data Ages < or = [...] on 2018. LDL, calculated 76 <=129 mg/dL [facility] Comment: Interpretive Data Ages < or = [...] revised on 2018. Non-HDL Cholesterol 98 mg/dL [facility] Comment: Interpretive Data Ages < or = [...] last revised on 2018. Chol/HDL ratio 3 [facility] Blood 08/20/2023 10:4 3 AM ASSEMBLER CARBON BRUSHES 08/20/2023 11:08 AM ASSEMBLER CARBON BRUSHES us Sami Stafford MD LAB BLOOD ORDERABLES Final Re sult [facility] [place] [address] * (ABNORMAL) Comprehensive metabolic panel (08/20/2023 10:43 AM ASSEMBLER CARBON BRUSHES) Sodium 139 135 - 145 mmol/L Potassium, pl 5.0(H) 3.3 - 4.9 mmol/L [facility] Chloride 106 97 - 110 mmol/L [facility] CO2 26 22 - 32 mmol/L [facility] Anion gap 7 2 - 15 mmol/L [facility] BUN 22 6 - 25 mg/dL [facility] Creatinine 1.63(H) 0.60 - 1.10 mg/dL [facility] Glucose 84 70 - 199 mg/dL [facility] Comment: Interpretive Data Fasting [...] 2022. Calcium 10.0 8.5 - 10.3 mg/dL [facility] Bilirubin, total 0.5 0.1 - 1.2 mg/dL [facility] Protein, pl 7.5 6.5 - 8.5 g/dL [facility] Albumin 4.2 3.5 - 5.0 g/dL [facility] Alk phos 81 40 - 130 Units/L [facility] ALT 108(H) 7 - 45 Units/L [facility] AST 95(H) 10 - 45 Units/L [facility] Blood 08/20/2023 10:4 3 AM ASSEMBLER [employer]BON BRUSHES 08/20/2023 11:08 AM ASSEMBLER CARBON BRUSHES us Sami Stafford MD LAB BLOOD ORDERABLES Final Re sult [facility] Department of Laboratories [place], [place] [id number] * ECG 12 lead (08/20/2023) us Sami Stafford MD ECG ORDERABLES Edited Result - Final documented in this encounter Visit Diagnoses Diagnosis Paroxysmal atrial fibrillation (CMS/HCC) (HCC)- Primary Atrial fibrillation Chronic heart failure with preserved ejection fraction (CMS/HCC) ([facility]) Apical variant hypertrophic cardiomyopathy (HCC) Coronary artery disease involving tuolumne coronary artery of tuolumne heart without angina pectoris Primary hypertension Unspecified essential hypertension NSVT (nonsustained ventricular tachycardia) ([facility]) Therapeutic drug monitoring Encounter for therapeutic drug monitoring documented in this encounter Discontinued Medications Medication Sig Discontinue Reason Start Date End Da te clopidogreL (PLAVIX) 75 mg tablet Take 1 tablet (75 mg total) by mouth daily 05/01/2022 08/20/2023 documented as of this encounter Historical Medications * This list may reflect changes made after this encounter. Medication Sig Dispense Quantity Refills Last Filled Start D ate End Date midodrine (PROAMATINE) 5 mg tablet 08/06/2023 10/20/2023 added in this encounter Care Teams Steel Engraver Relationship Specialty Start Date End Date Cristian Ling MD [address] [place] [address] PCP - General 10/16/16 documented as of this encounter
--- OUTSIDE RECORDS SUMMARY | 2024-06-12 03:55 | XMS_ITS | Encounter Summary ---
Author Organization [facility] Address [address] [place] [address] Phone Care Team Providers Care Control Systems Engineer Name Role Phone Cristian Ling MD Primary Care Prov ider Reason for Visit * Oncology (Routine) - Authorized Specialty Diagnoses / Procedures Referred By Contac t Referred To Contact Oncology Diagnoses Anemia, unspecified type Procedures ONCBCN ARM DRAW APPT ONC LAB ONLY Katja Joe MD [address] [place] [address] Phone: tel: fax: Katja Joe MD Phone: tel: fax: Referral ID Status Reason Start Date Expiration Date Visits Requested Visits Authorized [id number] Authorized Specialty Services Required 09/03/2022 09/29/2024 99 99 Encounter Details Date Type Department Care Team (Late st Contact Info) Description 10/03/2023 10:[address] [facility] Oncology [address] [facility] 7th [place] [address] [place] [address] Social History Tobacco Use Types Packs/Day Years [...] on file Legal Sex Female 7:12 AM QUALITY CONTROL SUPERVISOR Gender Identity Female 02/07/2021 4:33 PM CDT Sexual Orientation Straight 02/07/2021 4: 33 PM CDT documented as of this encounter Plan of Treatment Not on file documented as of this encounter Visit Diagnoses Not on filedocumented in this encounter Care Teams Control Systems Engineer Relationship Specialty Start Date End Date Cristian Ling MD [address] [place] [address] PCP - General 10/16/16 documented as of this encounter
--- OUTSIDE RECORDS SUMMARY | 2024-06-12 03:55 | XMS_ITS | Encounter Summary ---
Author Organization [facility] Address [address] [place] [address] Phone Care Team Providers Care Digital Intern Name Role Phone Cristian Ling MD Primary Care Prov ider Encounter Details Date Type Department Care Team (Late st Contact Info) Description 10/10/2023 Telephone [facility] Hematology [address] [facility] 7th [place] [address] [place] [address] Kate Fleming RN Social History Tobacco Use Types Packs/Day Years [...] on file Legal Sex Female 7:12 AM CCNA Gender Identity Female 02/07/2021 4:33 PM CDT Sexual Orientation Straight 02/07/2021 4: 33 PM CDT documented as of this encounter Miscellaneous Notes * Telephone Encounter - Kate Fleming RN - 10/10/2023 3:05 PM CDT Patient called reference upcoming iron infusion. She wanted to know if she needed to fast prior to the infusion or if she needed to wear special clothing. Patient was informed there was no prep needed for the infusion; no fasting or special clothing required. Patient instructed to call us back if any other questions come to mind. documented in this encounter Plan of Treatment Not on file documented as of this encounter Visit Diagnoses Not on filedocumented in this encounter Care Teams Digital Intern Relationship Specialty Start Date End Date Cristian Ling MD [address] [place] [address] PCP - General 10/16/16 documented as of this encounter
--- OUTSIDE RECORDS SUMMARY | 2024-06-12 03:55 | XMS_ITS | Encounter Summary ---
Author Organization [facility] Healthcare Address [address] [place] [address] Care Team Providers Care Calciner Operator Helper Name Role Phone Cristian Ling MD Primary Care Prov ider Reason for Referral * Diagnostic Imaging (Routine) - Closed Specialty Diagnoses / Procedures Referred By Contac t Referred To Contact Diagnoses Primary osteoarthritis of right hip Right hip pain Procedures FL Fluoro Guided Injection Hip Right Jamari Rodríguez MD [address] [facility] [address] [address] [place] [address] Phone: tel: fax: [address] [phone] Referral ID Status Reason Start Date Expiration Date Visits Re quested Visits Authorized [id number] Closed 04/17/2023 05/16/2024 1 1 LIFE REFUGE SPECIALIST Reason for Visit * Diagnostic Imaging (Routine) - Closed Specialty Diagnoses / Procedures Referred By Contac t Referred To Contact Diagnoses Primary osteoarthritis of right hip Right hip pain Procedures FL Fluoro Guided Injection Hip Right Jamari Rodríguez MD [address] [facility] [address] [place] [address] Phone: tel: fax: [address] [phone] Referral ID Status Reason Start Date Expiration Date Visits Re quested Visits Authorized [id number] Closed 04/17/2023 05/16/2024 1 1 Encounter Details Date Type Department Care Team (Latest Contact Info) Description 05/13/2023 11:36 AM WILDLIFE REFUGE SPECIALIST - 05/13/2023 11:59 PM WILDLIFE REFUGE SPECIALIST Hospital Encounter [facility] [id number] [place] [id number] Leighton Torres MD [address] [facility] [address] [place] [address] Primary osteoarthritis of right hip; Right hip pain Discharge Disposition: Discharge to home or [...] on file Legal Sex Female 7:12 AM WILDLIFE REFUGE SPECIALIST Gender Identity Female 02/07/2021 4:33 PM CDT Sexual Orientation Straight 02/07/2021 4: 33 PM CDT documented as of this encounter Last Filed Vital Signs Vital Sign Reading Time Taken Comments Blood Pressure 175/78 05/13/2023 12:07 PM WILDLIFE REFUGE SPECIALIST pt asymptomatic & has option to take bp at home, agrees to do that & follow up with MD if needed Pulse 65 05/13/2023 12:07 PM WILDLIFE REFUGE SPECIALIST Temperature - - Respiratory Rate 18 05/13/2023 12:0 7 PM WILDLIFE REFUGE SPECIALIST Oxygen Saturation 96% 05/13/2023 12: 07 PM WILDLIFE REFUGE SPECIALIST Inhaled Oxygen Concentration - - Weight - - Height - - Body Mass Index - - documented in this encounter Discharge Instructions * Patient Instructions* Leighton Torres MD - 05/13/2023 11:40 AM WILDLIFE REFUGE SPECIALIST Post Procedure Instructions You received a steroid [...] those with type 1 diabetes. Check fasting (insulation hoseman prior to first meal of the day) [...] concerns after hours, call our exchange at [phone]. For all other questions regarding the procedure, please call our office at [phone]. Pain Diary Please fill out the pain diary chart below and call or message via Doubloon the medical provider whorequested the injection, Dr. Rodríguez, in two weeks. By how much has [...] weeks after? 0% 20% 50% 80% 100% LIFE REFUGE SPECIALIST documented in this encounter Medications at Time [...] documented in this encounter Progress Notes * Leighton Torres MD - 05/13/2023 11:40 AM CST Right Fluoroscopically-Guided Hip Joint Injection [facility] Department of Orthopedic Surgery Division of Physical Medicine and Rehabilitation Patient name: Tiera Lobato Date of : 1945 Date of service: 05/13/2023 Tiera Lobato presents to the fluoroscopy suite [...] infused subcutaneously to anesthetize the region. Then, a 22 gauge 3.5 inch spinal needle was advanced to periosteum under fluoroscopic guidance. Confirmation into the joint capsule was attained with the infusion of 0.5 mL of Omnipaque contrast which showed capsular flow. Then, a combination of 2 mL of 1% lidocaine, 1 mL of 0.2% ropivacaine, and 40 mg of 40 mg/mL Kenalog was infused. The patient tolerated the procedure without complications. Pre and post procedure blood pressures were stable. The patient was given verbal aswell as written follow-up instructions. A pain diary with follow-up instructions was given to the patient. At the time of discharge following today's procedure, the patient was able to ambulate at their pre-procedure level and denied ongoing nausea, vomiting, or dizziness. Prior [...] was present for the entire procedure above. Leighton Torres MD LIFE REFUGE SPECIALIST documented in this encounter Plan of Treatment Not on file documented as of this encounter Procedures Procedure Name Priority Date/Time Associated Diagnosis Comments FLUORO GUIDED INJECTION HIP RIGHT Schedule Routine, Read Routine (OP Routine) 05/13/2023 12:04 PM WILDLIFE REFUGE SPECIALIST Primary osteoarthritis of right hip Right hip pain documented in this encounter Results * FL Fluoro Guided Injection Hip Right (05/13/2023 12:04 PM WILDLIFE REFUGE SPECIALIST) Narrative [facility] - 05/13/2023 12:04 PM WILDLIFE REFUGE SPECIALIST The images from this study are not interpreted by Radiology. ??Please refer to the physician's procedure / OR operative note. Jamari Rodríguez MD IMG FLUOROSCOPY PROCEDURES Final Result [facility] documented in this encounter Visit Diagnoses Diagnosis Primary osteoarthritis of right hip Right hip pain Pain in joint, pelvic region and thigh documented in this encounter Administered Medications Inactive Administered Medications - up to 3 most recent administrations Medication Order MAR Action Action Date Dose Rate Site iohexoL (OMNIPAQUE) 300 mg iodine/mL injection solution As needed, Starting on Fri05/13/23 at 1159, Intra-Op Given 05/13/2023 11:59 AM WILDLIFE REFUGE SPECIALIST 0.5 mL lidocaine PF (XYLOCAINE) 10 mg/mL (1 %) preservative free injection As needed, Starting on Fri05/13/23 at 1159, Intra-Op Given 05/13/2023 11:59 AM WILDLIFE REFUGE SPECIALIST 4 mL ROPivacaine (NAROPIN) 2 mg/mL (0.2 %) preservative free injection As needed, Starting on Fri05/13/23 at 1202, Intra-Op Given 05/13/2023 12:02 PM WILDLIFE REFUGE SPECIALIST 3 mL triamcinolone (KENALOG) 40 mg/mL injection As needed, Starting on Fri05/13/23 at 1202, Intra-Op Given 05/13/2023 12:02 PM WILDLIFE REFUGE SPECIALIST 40 mg documented in this encounter Additional Health Concerns Infection Onset Date Last Indicated Resolved Time MRSA Comment:IP Review- Patient has documentation of cultures positive for MRSA from outside facility on 02/12. Isolation flag placed for this reason. Please contact IP for any questions or concerns. 02/18/23 12:07 PM Lena Mccoy 02/18/2023 02/18/2023 4 3:05 AM WILDLIFE REFUGE SPECIALIST documented as of this encounter Care Teams Calciner Operator Helper Relationship Specialty Start Date End Date Cristian Ling MD [address] [place] [address] PCP - General 10/16/16 documented as of this encounter
--- OUTSIDE RECORDS SUMMARY | 2024-06-12 03:55 | XMS_ITS | Encounter Summary ---
Author Organization [facility] Address [address] [place] [address] Phone Care Team Providers Care Head Sugar Reprocess Operator Name Role Phone Cristian Ling MD Primary Care Prov ider Encounter Details Date Type Department Care Team (Late st Contact Info) Description 10/07/2023 Telephone [facility] Orthopaedic Surgery [address] [facility] 2nd [address] [place] [address] Vidya Grace LPN Social History [...] on file Legal Sex Female 7:12 AM NURSING TECHN Gender Identity Female 02/07/2021 4:33 PM CDT Sexual Orientation Straight 02/07/2021 4: 33 PM CDT documented as of this encounter Miscellaneous Notes * Telephone Encounter - Vidya Grace LPN - 10/07/2023 10:27 AM CDT Returned call to pt to discuss her request for a repeat right hip injection. Pt was advised that itwould be reasonable to come in for an evaluation of her symptoms since it's been a while since she was last seen for an evaluation and she mentioned having new symptoms of pain radiating down her right leg. Rpv has been scheduled. documented in this encounter Plan of Treatment Not on file documented as of this encounter Visit Diagnoses Not on filedocumented in this encounter Care Teams Head Sugar Reprocess Operator Relationship Specialty Start Date End Date Cristian Ling MD [address] [place] [address] PCP - General 10/16/16 documented as of this encounter
--- OUTSIDE RECORDS SUMMARY | 2024-06-12 03:55 | XMS_ITS | Encounter Summary ---
Author Organization [facility] Address [address] [place] [address] Phone Care Team Providers Care Show Girl Name Role Phone Cristian Ling MD Primary Care Prov ider Encounter Details Date Type Department Care Team (Late st Contact Info) Description 04/17/2023 Telephone [facility] Orthopaedic Surgery [address] [facility] [address] [place] [address] Kristian Garcia RN Social History Tobacco Use Types Packs/Day [...] on file Legal Sex Female 7:12 AM BLINTZE ROLLER Gender Identity Female 02/07/2021 4:33 PM CDT Sexual Orientation Straight 02/07/2021 4: 33 PM CDT documented as of this encounter Miscellaneous Notes * Telephone Encounter - Kristian Garcia RN - 04/17/2023 2:15 PM CDT Procedure Pre-Screening Assessment Procedure: Fluoro Guided Injection Hip Right Date: 04/23/2023 Time: 8:20 am arrive at 7:50 am Provider: Dr. Briseno Location: [facility] / [address] [address], [place] [address] Will you receive any vaccinations including the COVID booster 2 weeks prior to or 2 weeks after your scheduled procedure: No Allergic to x-ray contrast dye or local anesthetics: No Not Applicable Do you have a pacemaker or defibrillator? No Do you have cardiology clearance to obtain RFA? N/A Are you or plan on becoming prior to the scheduled procedure: N/A NSAIDS/Blood thinners: Yes Eliquis (apixaban) Reviewed instructions to hold medication prior to procedure Marketing Strategy Analyst: Not Applicable If patient requires an lathing supervisor, do let radiology scheduling ([phone]) know at the time of scheduling and they will schedule the lathing supervisor for patient Are you on oxygen or have a tracheostomy? (Patients on supplemental oxygen or with current tracheostomy cannot be scheduled at [facility]) No Diabetic: No Not Applicable Confirm patient's insurance: Yes [employer] What is patient's BMI (Maximum BMI at [facility] is 45) 28.46 Have you had conservative treatment for your pain? N/A Patient instructed to come with a putaway driver?: Yes Patient with commercial insurance or those with Medicare receiving Facet injection informed that ifprocedure is not approved by 3 pm the day prior, it will be rescheduled?: Yes Provided Pre-Procedure Instructions including arrival time: Yes My Chart email: [email or web address] Does the ordering provider's note have a [...] questions or concerns. 02/18/23 12:07 PM Lena Badilloon 02/18/2023 02/18/2023 4 3:05 AM BLINTZE ROLLER documented as of this encounter Care Teams Show Girl Relationship Specialty Start Date End Date Cristian Ling MD [address] [place] [address] PCP - General 10/16/16 documented as of this encounter
--- OUTSIDE RECORDS SUMMARY | 2024-06-12 03:55 | XMS_ITS | Encounter Summary ---
Author Organization [facility] Address [address] [place] [address] Phone Care Team Providers Care Airport Guide Name Role Phone Cristian Ling MD Primary Care Prov ider Encounter Details Date Type Department Care Team (Late st Contact Info) Description 09/26/2023 Telephone [facility] Cardiology [address] [facility] 8th [place] [address] [place] [address] Sami Stafford MD [address] [facility] [address] [place], [place] [id number] Social History Tobacco Use Types Packs/Day Years [...] on file Legal Sex Female 7:12 AM FREIGHT CAR CLEANER DELTA SYSTEM Gender Identity Female 02/07/2021 4:33 PM CDT Sexual Orientation Straight 02/07/2021 4: 33 PM CDT documented as of this encounter Ordered Prescriptions Prescription Sig Dispense Quantity Refills Last Filled Start Date End Date midodrine (PROAMATINE) 5 mg tabletIndications:S ymptomatic Orthostatic Hypotension Take 1 tablet (5 mg total) by mouth 3 (three) times a day 90 tablet 11 10/20/2023 documented in this encounter Miscellaneous Notes * Addendum Note - Sheila Pacheco RN - 10/20/2023 9:52 AM CDTAddended by: SHEILA PACHECO on: 10/20/2023 09:52 AM Modules accepted: Orders * Telephone Encounter - Sheila Pacheco RN - 10/20/2023 9:51 AM CDT Pt returned call and said she lives at [facility] in [facility]. Will fax midodrine rx. * Telephone Encounter - Sheila Pacheco RN - 10/20/2023 9:19 AM CDT Called [facility] who reports they do not have patient as a resident. I called patient to confirm which nursing facility she is in so I can get a fax number, no answer, VM box full. PAG- if pt calls back can you confirm her nursing facility? Thank you! * Telephone Encounter - Sami Stafford MD - 10/18/2023 12:13 AM CDT Yes, if that is what she is taking. * Telephone Encounter - Sheila Pacheco RN - 10/17/2023 10:43 AM CDT Rivera Pt msg to Tiara. Pt would like for you to send over the prescription info to [facility] for the nurses to see the change in the medication so they will change it for pt. Thank you. * Telephone Encounter - Sheila Pacheco RN - 10/16/2023 3:05 PM CDT Spoke with pt. Reports she continues to have episodes of hypotension- she said she is only taking her midodrine when she has low BP readings. I asked her to take the midodrine TID routinely to prevent low BP's, reports readings of 89/49 this week. I asked her to call with BP updates in ~2 weeks after being on midodrine routinely, sooner if any concerns. * Telephone Encounter - Sami Stafford MD - 09/26/2023 1:31 PM CDT agree * Telephone Encounter - Sheila Pacheco RN - 09/26/2023 1:13 PM CDT Spoke with pt. Reports having intermittent low blood pressures since Friday. 4/8 AM 95/45 4/8 PM 94/43 Today at 11 AM 116/47 59- felt ok with this reading. Reports normally BP 135/65. HR's well controlled 58-60. She takes metoprolol XL 25mg daily. She has associated LH, dizziness, fatigue with low BP readings. She denies dehydration, has been drinking plenty of water. Reports she received rx for PRN midodrine while she was in rehab after hospitalization. She took it today and BP improved and she felt better. I told her she can take this up to TID dosing typically- AM, midday , PM. She was appreciative of info. Encouraged she stay hydrated,take time with position changes, and call if symptoms/BP not improved with midodrine. Also told pt I would send Dr. Stafford a note for any additional recs. * Telephone Encounter - Ella Diggs - 09/26/2023 1:01 PM CDT Rivera Pt is calling in regards to speaking to a nurse about her BP being low. She said that it has been in the 90s. She said that she is tired and lightheaded. documented in this encounter Plan of Treatment Not on file documented as of this encounter Visit Diagnoses Not on filedocumented in this encounter Discontinued Medications Medication Sig Discontinue Reason Start Date End Da te midodrine (PROAMATINE) 5 mg tablet Reorder 08/06/2023 10/20/2023 documented as of this encounter Care Teams Airport Guide Relationship Specialty Start Date End Date Cristian Ling MD [address] [place] [address] PCP - General 10/16/16 documented as of this encounter
--- OUTSIDE RECORDS SUMMARY | 2024-06-12 03:55 | XMS_ITS | Encounter Summary ---
Author Organization [facility] Address [address] [place] [address] Phone Care Team Providers Care Javascript Engineer Name Role Phone Cristian Ling MD Primary Care Prov ider Encounter Details Date Type Department Care Team (Late st Contact Info) Description 05/14/2023 Telephone [facility] Cardiology [address] [facility] 8th [place] [address] [place] [address] Sami Stafford MD [address] [facility] [address] [place], [place] [id number] Social History Tobacco Use Types Packs/Day Years [...] on file Legal Sex Female 7:12 AM MACHINIST MATE Gender Identity Female 02/07/2021 4:33 PM CDT Sexual Orientation Straight 02/07/2021 4: 33 PM CDT documented as of this encounter Miscellaneous Notes * Telephone Encounter - Zahida Heredia, RN - 05/14/2023 11:46 AM MACHINIST MATE Patient calling to reschedule upcoming appt with Dr. Stafford on 06/11 - she reports she cannot make that day. Please assist her in making appt with either Dr. Stafford or DESKTOP SUPPORT CONSULTANT INIST MATE * Telephone Encounter - Ella Diggs - 05/14/2023 11:05 AM CST Rivera Pt is calling in regards to speaking to a nurse about her recent stay at [place]. INIST MATE documented in this encounter Plan of Treatment [...] PM Lena Mccoy 02/18/2023 02/18/2023 3:05 AM MACHINIST MATE documented as of this encounter Care Teams Javascript Engineer Relationship Specialty Start Date End Date Cristian Ling MD [address] [place] [address] PCP - General 10/16/16 documented as of this encounter
--- OUTSIDE RECORDS SUMMARY | 2024-06-12 03:55 | XMS_ITS | Encounter Summary ---
Author Organization [facility] Healthcare Address [address] [place] [address] Care Team Providers Care Grade Setter Name Role Phone Cristian Ling MD Primary Care Prov ider Encounter Details Date Type Department Care Team (Late st Contact Info) Description 2023 Orders Only [facility] Medical Group Cardiology [address] [place] [address] Yaneli Perry MD [address] [address] Social History Tobacco Use Types Packs/Day Years [...] on file Legal Sex Female 7:[address] TECHNOLOGIST Gender Identity Female 02/07/2021 4:33 PM CDT Sexual Orientation Straight 02/07/2021 4: 33 PM CDT documented as of this encounter Plan of Treatment Not on file documented as of this encounter Procedures Procedure Name Priority Date/Time Associated Diagnosis Comments CARDIOLOGY DOCUMENT SCAN Routine 023 11:25 AM CDT CARDIOLOGY DOCUMENT SCAN Routine 023 11:17 AM CDT CARDIOLOGY DOCUMENT SCAN Routine 023 11:21 AM CDT documented in this encounter Results * Cardiology Document Scan (04/17/2023 11:25 AM CDT) Anatomical Region Laterality Modality Other Yaneli Perry MD CV CARDIAC SERVICES PRO CEDURES Final Result * Cardiology Document Scan (04/17/2023 11:17 AM CDT) Anatomical Region Laterality Modality Other Yaneli Perry MD CV CARDIAC SERVICES PRO CEDURES Final Result * Cardiology Document Scan (04/16/2023 11:21 AM CDT) Anatomical Region Laterality Modality Other Yaneli Perry MD CV CARDIAC SERVICES PRO CEDURES Final Result documented in this encounter Visit Diagnoses Not on filedocumented in this encounter Additional Health Concerns Infection Onset Date Last Indicated Resolved Time MRSA Comment:IP Review- Patient has documentation of cultures positive for MRSA from outside facility on 02/12. Isolation flag placed for this reason. Please contact IP for any questions or concerns. 02/18/23 12:07 PM Lena Mccoy 02/18/2023 02/18/2023 4 3:[address] TECHNOLOGIST documented as of this encounter Care Teams Grade Setter Relationship Specialty Start Date End Date Cristian Ling MD [address] [place] [address] PCP - General 10/16/16 documented as of this encounter
--- OUTSIDE RECORDS SUMMARY | 2024-06-12 03:55 | XMS_ITS | Encounter Summary ---
Author Organization [facility] Address [address] [place] [address] Phone Care Team Providers Care Assembler Chassis Name Role Phone Cristian Ling MD Primary Care Prov ider Encounter Details Date Type Department Care Team (Late st Contact Info) Description 05/23/2023 Telephone [facility] Cardiology [address] [facility] 8th [place] [address] [place] [address] Sami Stafford MD [address] [facility] [address] [place], [place] [phone] Social History Tobacco Use Types Packs/Day Years [...] on file Legal Sex Female 7:12 AM FIRST SAMPLER Gender Identity Female 02/07/2021 4:33 PM CDT Sexual Orientation Straight 02/07/2021 4: 33 PM CDT documented as of this encounter Miscellaneous Notes * Telephone Encounter - Sheila Solomon RN - 05/23/2023 11:48 AM FIRST SAMPLER See alt enc. T SAMPLER * Telephone Encounter - Mary Jarquin - 05/23/2023 11:32 AM CST Rivera Pt returning Sheila's call. T SAMPLER documented in this encounter Plan of Treatment [...] PM Lena Mccoy 02/18/2023 02/18/2023 3:05 AM FIRST SAMPLER documented as of this encounter Care Teams Assembler Chassis Relationship Specialty Start Date End Date Cristian Ling MD [address] [place] [address] PCP - General 10/16/16 documented as of this encounter
--- OUTSIDE RECORDS SUMMARY | 2024-06-12 03:55 | XMS_ITS | Encounter Summary ---
Author Organization [facility] Address [address] [place] [address] Phone Care Team Providers Care Cancer Center Director Name Role Phone Cristian Ling MD Primary Care Prov ider Encounter Details Date Type Department Care Team (Late st Contact Info) Description 10/17/2023 Telephone [facility] Cardiology [address] [facility] 8th [place] [address] [place] [address] Sami Stafford MD [address] [facility] [address] [place], [place] [id number] Social History Tobacco Use Types Packs/Day Years [...] on file Legal Sex Female 7:12 AM FINANCING ANALYST Gender Identity Female 02/07/2021 4:33 PM CDT Sexual Orientation Straight 02/07/2021 4: 33 PM CDT documented as of this encounter Miscellaneous Notes * Telephone Encounter - Sheila Solomon RN - 10/20/2023 9:40 AM CDT See enc 09/26/23. * Telephone Encounter - Tammie Edwards - 10/20/2023 9:30 AM CDT The patient is returning Rn call * Telephone Encounter - Sheila Solomon RN - 10/17/2023 10:43 AM CDT See enc 09/26/23. * Telephone Encounter - Mary Jarquin - 10/17/2023 10:34 AM CDT Rivera Pt msg to Tiara. Pt would like for you to send over the prescription info to [facility] for the nurses to see the change in the medication so they will change it for pt. Thank you. documented in this encounter Plan of Treatment Not on file documented as of this encounter Visit Diagnoses Not on filedocumented in this encounter Care Teams Cancer Center Director Relationship Specialty Start Date End Date Cristian Ling MD [address] [place] [address] PCP - General 10/16/16 documented as of this encounter
--- OUTSIDE RECORDS SUMMARY | 2024-06-12 03:55 | XMS_ITS | Encounter Summary ---
Author Organization [facility] Healthcare Address [address] [place] [address] Care Team Providers Care Exhibit Builder Name Role Phone Cristian Ling MD Primary Care Prov ider Encounter Details Date Type Department Care Team (Late st Contact Info) Description 04/21/2023 Orders Only [facility] Cardiology [address] [place] [address] Archie Orellana MD [address] [id number] Social History Tobacco Use Types Packs/Day Years [...] on file Legal Sex Female 7:12 AM ASSOCIATE APPLICATION DEVELOPER Gender Identity Female 02/07/2021 4:33 PM CDT Sexual Orientation Straight 02/07/2021 4: 33 PM CDT documented as of this encounter Plan of Treatment Not on file documented as of this encounter Procedures Procedure Name Priority Date/Time Associated Diagnosis Comments CARDIOLOGY DOCUMENT SCAN Routine 023 11:17 AM CDT CARDIOLOGY DOCUMENT SCAN Routine 023 11:15 AM CDT documented in this encounter Results * Cardiology Document Scan (04/19/2023 11:17 AM CDT) Anatomical Region Laterality Modality Other Archie Orellana MD CV CARDIAC SERVICES PROCE DURES Final Result * Cardiology Document Scan (2023 11:15 AM CDT) Anatomical Region Laterality Modality Other Archie Orellana MD CV CARDIAC SERVICES PROCE DURES Final Result documented in this encounter Visit [...] Lena Mccoy 02/18/2023 02/18/2023 4 3:05 AM ASSOCIATE APPLICATION DEVELOPER documented as of this encounter Care Teams Exhibit Builder Relationship Specialty Start Date End Date Cristian Ling MD [address] [place] [address] PCP - General 10/16/16 documented as of this encounter
--- OUTSIDE RECORDS SUMMARY | 2024-06-12 03:55 | XMS_ITS | Encounter Summary ---
Author Organization [facility] Address [address] [place] [address] Phone Care Team Providers Care Dowel Maker Name Role Phone Cristian Ling MD Primary Care Prov ider Encounter Details Date Type Department Care Team (Late st Contact Info) Description 05/23/2023 Telephone [facility] Cardiology [address] [facility] 8th [place] [address] [place] [address] Sami Stafford MD [address] [facility] [address] [place], [place] [id number] Social History Tobacco Use Types Packs/Day Years [...] on file Legal Sex Female 7:12 AM SURVEY DIRECTOR Gender Identity Female 02/07/2021 4:33 PM CDT Sexual Orientation Straight 02/07/2021 4: 33 PM CDT documented as of this encounter Miscellaneous Notes * Telephone Encounter - Sami Stafford MD - 05/23/2023 3:53 PM CST agree EY DIRECTOR * Telephone Encounter - Sheila Solomon RN - 05/23/2023 11:51 AM SURVEY DIRECTOR Spoke with pt. She called to discuss an upcoming trip to [place] to see her granddaughter graduate. She is drivingwith her son- 8 hours. Had questions on the safety of going and concerns on if she goes into a-fib what to do. I told her to be sure to bring her PRN metoprolol tartrate with her and in the event she does go into a-fib, if able to keep adeuqate HR control /symptom control with metoprolol tartrate, can continue that until she returns (she will be out of town for 3-4 days). Encouraged her that if she goes into a-fib and very symptomatic, should go to local ER for evaluated. Also encouraged frequent stops/ambulation on drive. I told her I would send a message to Dr. Stafford and if he had any additional thoughts, would relay. Pt appreciative of call. EY DIRECTOR * Telephone Encounter - Sheila Solomon RN - 05/23/2023 10:18 AM SURVEY DIRECTOR LMOR for pt to return call. EY DIRECTOR * Telephone Encounter - Ella Diggs - 05/23/2023 9:08 AM CST Rivera Pt is calling in regards to speaking to a nurse about some concerns. EY DIRECTOR documented in this encounter Plan of Treatment [...] Lena Mccoy 02/18/2023 02/18/2023 4 3:05 AM SURVEY DIRECTOR documented as of this encounter Care Teams Dowel Maker Relationship Specialty Start Date End Date Cristian Ling MD [address] [place] [address] PCP - General 10/16/16 documented as of this encounter
--- OUTSIDE RECORDS SUMMARY | 2024-06-12 03:55 | XMS_ITS | Encounter Summary ---
Author Organization [facility] Healthcare Address [address] [place] [address] Care Team Providers Care Staple Side Laster Name Role Phone Cristian Ling MD Primary Care Prov ider Encounter Details Date Type Department Care Team (Late st Contact Info) Description 04/28/2023 Orders Only [facility] Medical Group Cardiology [address] [place] [address] Yaneli Perry MD [address] [address] Social History Tobacco Use Types [...] on file Legal Sex Female 7:12 AM WASHING MACHINE INSTALLER Gender Identity Female 02/07/2021 4:33 PM CDT Sexual Orientation Straight 02/07/2021 4: 33 PM CDT documented as of this encounter Plan of Treatment Not on file documented as of this encounter Procedures Procedure Name Priority Date/Time Associated Diagnosis Comments CARDIOLOGY DOCUMENT SCAN Routine 04/23/2023 9:15 AM WASHING MACHINE INSTALLER documented in this encounter Results * Cardiology Document Scan (04/23/2023 9:15 AM WASHING MACHINE INSTALLER) Anatomical Region Laterality Modality Other [facility] Pratima Perry MD CV CARDIAC SERVICES PRO CEDURES [...] Lena Mccoy 02/18/2023 02/18/2023 4 3:05 AM WASHING MACHINE INSTALLER documented as of this encounter Care Teams Staple Side Laster Relationship Specialty Start Date End Date Cristian Ling MD [address] [place] [address] PCP - General 10/16/16 documented as of this encounter
--- OUTSIDE RECORDS SUMMARY | 2024-06-12 03:55 | XMS_ITS | Encounter Summary ---
Author Organization [facility] Address [address] [place] [address] Phone Care Team Providers Care Newspaper Clipper Name Role Phone Cristian Ling MD Primary Care Prov ider Encounter Details Date Type Department Care Team (Late st Contact Info) Description 04/23/2023 Telephone [facility] Orthopaedic Surgery [address] [facility] [address] [place] [address] Kristian Garcia RN Social History [...] on file Legal Sex Female 7:12 AM COMPUTER SCIENCE INSTRUCTOR Gender Identity Female 02/07/2021 4:33 PM CDT Sexual Orientation Straight 02/07/2021 4: 33 PM CDT documented as of this encounter Miscellaneous Notes * Telephone Encounter - Kristian Garcia RN - 04/23/2023 10:28 AM COMPUTER SCIENCE INSTRUCTOR Received call from patient's son (Storm) stating that patient will not be making it in to her injection appointment today due to being hospitalized at [facility]. Injection appointment cancelled. Storm has phone to call and reschedule appointment. UTER SCIENCE INSTRUCTOR documented in this encounter Plan of Treatment [...] Lena Mccoy 02/18/2023 02/18/2023 4 3:05 AM COMPUTER SCIENCE INSTRUCTOR documented as of this encounter Care Teams Newspaper Clipper Relationship Specialty Start Date End Date Cristian Ling MD [address] [place] [address] PCP - General 10/16/16 documented as of this encounter
--- OUTSIDE RECORDS SUMMARY | 2024-06-12 03:55 | XMS_ITS | Encounter Summary ---
Author Organization [facility] Address [address] [place] [address] Phone Care Team Providers Care Receiving Worker Name Role Phone Cristian Ling MD Primary Care Prov ider Encounter Details Date Type Department Care Team (Late st Contact Info) Description 04/16/2023 Orders Only [facility] Orthopaedic Surgery [address] [facility] 2nd [address] [place] [address] Jamari Rodríguez MD [address] [facility] [address] [address] [place], [place] [id number] Social History Tobacco Use Types Packs/Day Years [...] on file Legal Sex Female 7:12 AM CENTERLESS GRINDER SET UP OPERATOR Gender Identity Female 02/07/2021 4:33 PM [...] Lena Badilloon 02/18/2023 02/18/2023 4 3:05 AM CENTERLESS GRINDER SET UP OPERATOR documented as of this encounter Care Teams Receiving Worker Relationship Specialty Start Date End Date Cristian Ling MD [address] [place] [address] PCP - General 10/16/16 documented as of this encounter
--- OUTSIDE RECORDS SUMMARY | 2024-06-12 03:55 | XMS_ITS | Encounter Summary ---
Author Organization [facility] Address [address] [place] [address] Phone Care Team Providers Care Technical Support 1 Software Engineer Name Role Phone Cristian Ling MD Primary Care Prov ider Encounter Details Date Type Department Care Team (Late st Contact Info) Description 04/14/2023 Telephone [facility] Orthopaedic Surgery [address] [place] [address] Jamari Rodríguez MD [address] [facility] [place] [address] Social History Tobacco Use Types [...] on file Legal Sex Female 7:12 AM FIRE CONTROL MECHANIC Gender Identity Female 02/07/2021 4:33 PM CDT Sexual Orientation Straight 02/07/2021 4: 33 PM CDT documented as of this encounter Miscellaneous Notes * Telephone Encounter - Vidya Grace LPN - 04/17/2023 2:09 PM CDT LVM advising pt's son to call our office to have pt scheduled for her hip injection with Dr Del Rio, order is in chart * Telephone Encounter - Mariam Sawyer RMA - 04/14/2023 11:48 AM CDT Patient son- Storm is calling states that patient is having returning hip pain and would like another injeciton. Last injection was 12/10/2022 on [place] GUIDED INJ HIP RT Patient son can be reached at [phone] documented in this encounter Plan of Treatment [...] Lena Mccoy 02/18/2023 02/18/2023 4 3:05 AM FIRE CONTROL MECHANIC documented as of this encounter Care Teams Technical Support 1 Software Engineer Relationship Specialty Start Date End Date Cristian Ling MD [address] [place] [address] PCP - General 10/16/16 documented as of this encounter
--- OUTSIDE RECORDS SUMMARY | 2024-06-12 03:55 | XMS_ITS | Encounter Summary ---
Author Organization [facility] Address [address] [place] [address] Phone Care Team Providers Care Entertainment Director Name Role Phone Cristian Ling MD Primary Care Prov ider Reason for Visit * Episode Based Medications (Routine) - Authorized Specialty Diagnoses / Procedures Referred By Contac t Referred To Contact Diagnoses Iron deficiency anemia, unspecified iron deficiency anemia type Saif Ur Katja Linares MD [address] [place] [address] Phone: tel: fax: [facility] [place] [address] [facility] 7th [place] [address] Phone: tel: Referral ID Status Reason Start Date Expiration Date V isits Requested Visits Authorized [id number] Authorized 10/05/2023 09/29/2024 1 10 Encounter Details Date Type Department Care Team (Late st Contact Info) Description 10/30/2023 2:30 PM CDT Infusion [facility] Oncology [facility] Medicine 7th [place] [address] Iron deficiency anemia, unspecified iron deficiency anemia [...] on file Legal Sex Female 7:12 AM INSURANCE ADMINISTRATOR Gender Identity Female 02/07/2021 4:33 PM CDT Sexual Orientation Straight 02/07/2021 4: 33 PM CDT documented as of this encounter Last Filed Vital Signs Vital Sign Reading Time Taken Comments Blood Pressure 146/65 10/30/2023 3:32 PM CDT Pulse 66 10/30/2023 3:32 PM CDT Temperature 36.8 ??C (98.2 ??F) 10/30/2023 3:32 PM CD T Respiratory Rate - - Oxygen Saturation 97% 10/30/2023 3:32 PM CDT Inhaled Oxygen Concentration - - Weight 71.8 kg (158 lb 6.4 oz) 10/30/2023 3:32 P M CDT Height - - Body Mass Index 27.18 10/03/2023 11:25 AM CDT documented in this encounter Nursing Notes * Briseyda Domínguez, RN - 10/30/2023 2:30 PM CDT Oncology Nursing Note [facility] ONCOLOGY [place] Filemon Lobato is a 78 y.o. female who presents for treatment cycle 1, day 1 of Infed. Pre-treatment Nursing Assessment Nursing Assessment LOC: Alert, Awake Constitutional: Dizziness, Fatigue Fatigue: Occassional Any falls since your last visit?: No Orientation: Oriented x4 Behavior: Calm Speech: Clear Language: No aphasia Vision: At baseline Peripheral Neuropathy: No Oral Mucosa Grade: Normal (0) Pt states has potential to be ?: No Shortness of Breath?: No Cough: Absent Appetite: Fair What diet do you follow at home?: regular Have You Recently Lost Weight Without Trying?: No Have you been eating poorly because of a decreased appetite?: No Malnutrition Screening Tool (MST) Score: 0 Nausea/Vomiting: No Abdomen: Bowel sounds present x4, Soft Diarrhea: No Constipation: No Last BM Date: 10/30/23 Skin Condition/Temp: Warm, Dry Swelling: Yes Swelling location: LLE, RLE Additional Notes: BP: 146/65 Temp: 36.8 ??C (98.2 ??F) Temp src: Transdermal Pulse: 66 SpO2: 97 % Weight: 71.8 kg (158 lb 6.4 oz) Pain Score: 0 - No pain Treatment Patient: met treatment parameters Pre blood return: Jaquan Lobato tolerated treatment well. Patient was frequently observed and monitored throughout the administration of their treatment. Additional Notes: Post blood return: Brisk IV access post infusion: NS Patient Education Treatment Education: Information/teaching given to patient including symptom management, process and procedure related to today's visit, and when to notify MD Response: Verbalizes understanding Discharge Plan Discharge instructions given to patient. Future appointments given and reviewed with treatment plan. Discharge Mode: Ambulatory Accompanied by: Family Discharged To: Home documented in this encounter Plan of Treatment Not on file documented as of this encounter Visit Diagnoses Diagnosis Iron deficiency anemia, unspecified iron deficiency anemia type- Primary documented in this encounter Administered Medications Inactive Administered Medications - up to 3 most recent administrations Medication Order MAR Action Action Date Dose Rate Site acetaminophen (TYLENOL) tablet 650 mg 650 mg, oral, Once, On Concha 10/30/23 at 1600, For 1 dose, Administer 30 minutes before Iron DextranIndications:Iron deficiency anemia, unspecified iron deficiency anemia type Given 10/30/2023 3:40 PM CDT 650 mg diphenhydrAMINE (BENADRYL) tab/cap 25 mg 25 mg, oral, Once, On Concha 10/30/23 at 1600, For 1 dose, Administer 30 minutes before Iron DextranIndications:Iron deficiency anemia, unspecified iron deficiency anemia type Given 10/30/2023 3:40 PM CDT 25 mg iron dextran complex (INFED) 25 mg in sodium chloride 0.9% 50 mL IVPB 25 mg, intravenous, at 202 mL/hr, Administer over 15 Minutes, Once, On Concha 10/30/23 at 1630, For 1 dose, TEST DOSE. Administer over 15 minutes. If no reaction to Test dose after 10 minutes of observation, give full dose.Indications:Iron deficiency anemia, unspecified iron deficiency anemia type New Bag 10/30/2023 4:30 PM CDT 25 mg 202 mL/hr iron dextran complex (INFED) 975 mg in sodium chloride 0.9% 500 mL IVPB 975 mg, intravenous, at 519.5 mL/hr, Administer over 60 Minutes, Once, On Concha 10/30/23 at 1645, For 1 dose, If no reaction to Test dose after 10 minutes of observation, give full dose. Administer over 60 minutesIndications:Iron deficiency anemia, unspecified iron deficiency anemia type New Bag 10/30/2023 4:47 PM CDT 975 mg 519.5 mL/hr documented in this encounter Orders Nursing Count Last Ordered Date First Orde red Date ONCBCN NURSING COMMUNICATION [id number] 1 0 10/30/2023 VITAL SIGNS 1 10/30/2023 Appointment Requests Count Last Ordered Date Fi rst Ordered Date ONCBCN INFUSION APPT REQUEST 1 10/30/2023 documented in this encounter Care Teams Entertainment Director Relationship Specialty Start Date End Date Cristian Ling MD [address] [place] [address] PCP - General 10/16/16 documented as of this encounter
--- OUTSIDE RECORDS SUMMARY | 2024-06-12 03:55 | XMS_ITS | Encounter Summary ---
Author Organization [facility] Address [address] [place] [address] Phone Care Team Providers Care Grease Packer Name Role Phone Cristian Ling MD Primary Care Prov ider Reason for Visit * Oncology (Routine) - Authorized Specialty Diagnoses / Procedures Referred By Contac t Referred To Contact Hematology Diagnoses Anemia, unspecified type Sami Stafford MD [address] [facility] [address] [place] [address] Phone: tel: fax: Katja Joe MD Phone: tel: fax: Referral ID Status Reason Start Date Expiration Date Visits Requested Visits Authorized [id number] Authorized Specialty Services Required 07/22/2022 09/29/2024 26 26 Encounter Details Date Type Department Care Team (Late st Contact Info) Description 10/03/2023 11:15 AM CDT Office Visit [facility] Hematology [address] 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 Gender Identity Female 02/07/2021 4:33 PM CDT Sexual Orientation Straight 02/07/2021 4 :33 PM CDT documented as of this encounter Last Filed Vital Signs Vital Sign Reading Time Taken Comments Blood Pressure 127/66 10/03/2023 11:25 AM CDT Pulse 56 10/03/2023 11:25 AM CDT Temperature 36.5 ??C (97.7 ??F) 10/03/2023 11:25 AM C DT Respiratory Rate 18 10/03/2023 11:25 AM CDT Oxygen Saturation 97% 10/03/2023 11:25 AM CDT Inhaled Oxygen Concentration - - Weight 72 kg (158 lb 12.8 oz) 10/03/2023 11:25 A M CDT Height 162.6 cm (5' 4.02 ) 10/03/2023 11:25 AM C DT Body Mass Index 27.24 10/03/2023 11:25 AM CDT documented in this encounter Progress Notes * Katja Joe MD - 10/03/2023 11:15 AM CDT ASSESSMENT AND PLAN: Ms. 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 1. 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 I discussed with Ms. Lobato that her hemoglobin has downtrended in the past 1 year and was consistently in the 7-8 range. She was found to have depleted iron stores during a recent inpatient admission last year, however did not receive any parenteral iron due to concern for active bacteremia. She denies dark stools or seeing blood in the stool however is on anticoagulation with Eliquis. Her labs today show persistentanemia with hemoglobin of 8.3 and her iron profile continues to show depleted iron stores with a ferritin of 43 and a transferrin saturation low at 7. Her serum iron is low at 31 and her TIBC is highat 424, again consistent with iron-deficiency. We will arrange for her to proceed with parenteral iron and depending on insurance approval, eitherproceed with 1 g of iron dextran with a test dose or 3 doses of Venofer. I discussed that there maybe an element of CKD playing a role here however we need to make sure the iron stores are replete, before considering erythropoietin stimulating agents Also Ms. Lobato reports having undergone a bone marrow biopsy at [facility] in 2021. She was told no abnormality was found and we will reach out to the Medical Records to get the report faxed over for review. All her questions and concerns were answered to apparent satisfaction. We will see her back in clinic in 6 months. Katja Linares MD [employer] file clerk Division of Hematology REASON FOR VISIT: Patient is a 78 y.o. female, who comes in today to clinic for a Return visit. DIAGNOSIS: Chronic Anemia in setting of CKD stage IIIB as well as recent evidence of iron-deficiency. HISTORY OF PRESENTING ILLNESS: 77 y.o. female with a PMH of pAFib, Apical variant HCM, CAD with KS in 2012 s/p CABG HTN, DDD,diverticulitis, vertigo, prior DVT, OA who was referred to Hematology for evaluation of chronic normocytic anemia. At that time blood work showed no evidence of a nutritional deficiency and since her hemoglobin was above 10 with history of CKD stage 3 this was considered secondary to anemia of chronic disease versus anemia secondary to CKD. Ms. Lobato subsequently had an inpatient admission in March of 2023 at [facility] where she presented as an outside hospital transfer for AFib with RVR. Her hemoglobin dropped down to below 7 requiring the transfusion of 1 unit of packed red blood cells. Labs inpatient showed evidence of iron deficiency however due to concern for line associated bacteremia, she did not receive parenteral iron. She was then subsequently discharged and presents today for follow-up. INTERVAL HISTORY: Ms. Lobato reports doing well today and has no complaints. She presents for follow-up accompaniedby her son. She reports feeling at baseline and denies excessive fatigue or tiredness. She denies dark stools or seeing blood in the stool however she is on anticoagulation for history of AFib. Her son had questions about whether low iron can cause episodes of dizziness that was extensively worked up inpatient without an identifiable cause. REVIEW OF SYSTEMS: Denies any cough, shortness of breath, fevers, or chills. Denies any headaches, dizziness, upper orlower extremity weakness, nausea, vomiting, diarrhea, constipation. All other review of systems negative except interval history. Problem List Unprioritized Coronary artery disease involving [place] coronary artery of [place] heart without angina pectoris Hx of CABG Primary hypertension History of KS (myocardial infarction) Lumbar stenosis with neurogenic claudication Other osteoporosis without current pathological fracture Right hip pain Apical variant hypertrophic cardiomyopathy (HCC) Paroxysmal atrial fibrillation (CMS/HCC) (HCC) Atrial fibrillation (CMS/HCC) (HCC) A-fib (CMS/HCC) (HCC) NSVT (nonsustained ventricular tachycardia) (HCC) Patient's Medications New Prescriptions No medications on file Previous Medications ACETAMINOPHEN 500 MG CAPSULE Take 2 capsules (1,000 mg total) by mouth 3 (three) times a day ALENDRONATE (FOSAMAX) 70 MG TABLET TAKE 1 TABLET BY MOUTH ONE TIME PER WEEK AMIODARONE (PACERONE) 200 MG TABLET Take 1 tablet (200 mg total) by mouth daily APIXABAN (ELIQUIS) 5 MG TABLET Take 1 tablet (5 mg total) by mouth 2 (two) times a day ATORVASTATIN (LIPITOR) 80 MG TABLET Take 1 tablet (80 mg total) by mouth nightly CALCIUM CARBONATE-VITAMIN D3 1,250MG (500MG ELEMENTAL) - 5 MCG (200 UNITS) PER TABLET Take 1 tabletby mouth daily CANNABIDIOL, CBD, (MEDICAL CANNABIS) EACH 1 Dose 3 (three) times a day as needed Tablets CHOLECALCIFEROL (VITAMIN D-3) 1,000 UNIT TABLET Take 1 tablet (1,000 Units total) by mouth daily CYANOCOBALAMIN (VITAMIN B-12) 1,000 MCG TABLET Take 2 tablets (2,000 mcg total) by mouth daily DICLOFENAC DR (VOLTAREN) 75 MG EC TABLET Take 1 tablet (75 mg total) by mouth 2 (two) times a day DICLOFENAC SODIUM (VOLTAREN) 1 % GEL Apply 2 g topically 3 (three) times a day EZETIMIBE (ZETIA) 10 MG TABLET TAKE 1 TABLET BY MOUTH EVERY DAY GABAPENTIN (NEURONTIN) 100 MG CAPSULE Take 2 capsules (200 mg total) by mouth 2 (two) times a day LINACLOTIDE (LINZESS) 145 MCG CAPSULE Take 1 capsule (145 mcg total) by mouth daily before breakfast METOPROLOL TARTRATE (LOPRESSOR) 25 MG IMMEDIATE RELEASE TABLET Take 1 tablet (25 mg total) by mouthdaily as needed (to be given if pt has palpitations and is sympotmatic) METOPROLOL XL (TOPROL-XL) 25 MG EXTENDED RELEASE TABLET Take 1 tablet (25 mg total) by mouth daily MIDODRINE (PROAMATINE) 5 MG TABLET ONDANSETRON (ZOFRAN) 4 MG TABLET Take 1 tablet (4 mg total) by mouth every 8 (eight) hours as needed for nausea or vomiting PANTOPRAZOLE DR (PROTONIX) 40 MG EC TABLET Take 1 tablet (40 mg total) by mouth daily SERTRALINE (ZOLOFT) 100 MG TABLET Take 0.5 tablets (50 mg total) by mouth daily Modified Medications No medications on file Discontinued Medications No medications on file ALLERGIES: Allergies as of 10/03/2023 - Reviewed 10/03/2023 Allergen Reaction Noted Codeine Hives and Shortness of breath 01/15/2021 Latex Itching 11/06/2015 Milk Nausea & Vomiting 03/14/2023 Tramadol Nausea & Vomiting and Unknown 12/10/2017 CHANGES TO FAMILY/SOCIAL HISTORY: No. PHYSICAL EXAM: Vitals BP 127/66 (BP Location: Left arm) Pulse 56 Temp 36.5 ??C (97.7 ??F) (Transdermal) Resp 18 Ht 162.6 cm (5' 4.02 ) Wt 72 kg (158 lb 12.8 oz) SpO2 97% BMI 27.24 kg/m?? CONSTITUTIONAL: Alert, Normal Appearance, No Acute Distress HENT: Normocephalic, Atraumatic, Nose Normal EYES: Sclera Anicteric, Conjunctivae Normal NECK: ROM Normal, No Erythema RESPIRATORY: Effort Normal, No Respiratory Distress MSK: ROM Normal, No Deformity SKIN: No Rash, No Jaundice NEUROLOGIC: A/O x 3, No Focal Deficit PSYCHIATRIC: Judgement Normal, Mood Appropriate HEMATOLOGIC: No Petechiae, No Ecchymoses LABS REVIEWED TODAY: CBC Lab Results Component Value Date WBC 4.3 10/03/2023 HGB 8.3 (L) 10/03/2023 HCT 25.8 (L) 10/03/2023 MCV 86.0 10/03/2023 MCH 27.5 10/03/2023 MCHC 31.9 (L) 10/03/2023 RDW 14.7 (H) 10/05/2012 LABPLAT 187 10/03/2023 MPV 8.6 10/03/2023 NEUTROABS 2.6 10/03/2023 LYMPHSABS 1.1 (L) 10/03/2023 MONOABS 0.6 10/03/2023 EOSABS 0.0 10/03/2023 BASOSABS 0.0 10/03/2023 NEUTOPHILPCT 59.1 10/03/2023 LYMPHOPCT 24.5 10/03/2023 MONOPCT 14.7 10/03/2023 EOSPCT 1.0 10/03/2023 BASOPCT 0.7 10/03/2023 CMP Chemistry Lab Results Component Value Date SODIUM 139 10/03/2023 POTASSIUM 4.5 10/03/2023 CHLORIDE 105 10/03/2023 CO2 26 10/03/2023 ANIONGAP 8 10/03/2023 BUNSER 18 10/03/2023 CREATININE 1.48 (H) 10/03/2023 GLUCOSE 94 10/03/2023 CALCIUM 10.4 (H) 10/03/2023 BILITOT 0.4 10/03/2023 PROTEIN 6.8 09/14/2012 ALBUMIN 4.5 10/03/2023 GFRNAA 36 (L) 10/03/2023 GFRAA 78.2 12/23/2018 ALKPHOS 84 10/03/2023 AST 131 (H) 10/03/2023 ALT 144 (H) 10/03/2023 PHOS 2.3 03/16/2023 MAGNESIUM 1.7 03/20/2023 Ferritin Iron Profile Lab Results Component Value Date IRON 31 (L) 10/03/2023 TIBC 424 (H) 10/03/2023 TRANSFERSAT 7 (L) 10/03/2023 Immunoglobulin Free Light Chains Lab Results Component Value Date LIGHTCHAIN 1.24 03/17/2023 KAPPA 2.92 (H) 03/17/2023 LAMBDA 2.35 03/17/2023 Protein Electrophoresis Lab Results Component Value Date PROTSER 5.9 (L) 02/23/2023 ALBFRACTN 3.9 10/18/2022 [id number] 0.3 10/18/2022 [id number] 0.8 10/18/2022 BETA1 0.4 10/18/2022 BETA2 0.3 10/18/2022 BETA2 0.7 10/18/2022 SPELINTRP Please see comment 10/18/2022 IMAGES REVIEWED TODAY: Results for orders placed during the hospital encounter of 02/17/23 CT Abdomen Pelvis W Contrast Narrative Examination: CT abdomen and pelvis with intravenous contrast TECHNIQUE: Standard CT of the abdomen and pelvis was performed after the administration of Optiray 350 intravenous contrast. The following amount of contrast was administered for this examination: 88 mL HISTORY: Abdominal pain FINDINGS: Comparison is made to prior study of 02/18/2023. Bilateral small pleural effusions are seen which are somewhat larger than they were on the prior study. The heart size is mildly enlarged but unchanged. Mild basilar atelectasis is seen. The spleen is normal. The pancreas is mildly atrophic. A left adrenal gland myelolipoma is noted. The right adrenal gland is normal. The liver is unremarkable other than for some mild intrahepatic and extra hepatic biliary ductal dilatation which may be related to reservoir effect given patient's history of cholecystectomy. A small duodenal diverticulum is identified with some high attenuation within it. Bilateral renal cysts are seen but there is no hydronephrosis. Abdominal aorta is atherosclerotic and mildly ectatic but never reaches a dimension greater than 2.1 cm. There is no retroperitoneal or mesenteric lymphadenopathy. Uterus is left of midline and the urinary bladder is normal. Some liquid contents are seen within the colon which could be indicative of a mild colitis. The small bowel is normal in course and caliber. Small ventral hernia containing fat is seen. The bone windows are unchanged with again noted T11 compression deformity. Impression 1. No definite explanation for patient's abdominal pain. Possible colitis given liquid contents within colon. 2. Slight increase in bilateral pleural effusions. Electronically signed by: Beto Sinha M.D. PATHOLOGY RESULTS: No results found for this or any previous visit. Verification of Shared Electronic Chart History I have reviewed, verified and personally updated the past history. Medications were reviewed today by patient interview and up to date in the electronic chart. ASSESSMENT AND PLAN: Assessment and Plan is now at the top of the note. Katja Linares MD documented in this encounter Plan of Treatment Scheduled Orders Name Type Priority Associated Diagnoses Orde r Schedule CBC with auto differential Lab Routine Iron deficiency anemia due to chronic blood loss Expected: 04/21/2024 (Approximate), Expires: 10/02/2024 Comprehensive metabolic panel Lab Routine Iron deficiency anemia due to chronic blood loss Expected: 04/21/2024 (Approximate), Expires: 10/02/2024 Reticulocyte Count Lab Routine Iron deficiency anemia due to chronic blood loss Expected: 04/21/2024 (Approximate), Expires: 10/02/2024 Iron profile w/ IBC Lab Routine Iron deficiency anemia due to chronic blood loss Expected: 04/21/2024 (Approximate), Expires: 10/02/2024 Ferritin Lab Routine Iron deficiency anemia due to chronic blood loss Expected: 04/21/2024 (Approximate), Expires: 10/02/2024 Erythropoietin Lab Routine Iron deficiency anemia due to chronic blood loss Expected: 04/21/2024 (Approximate), Expires: 10/02/2024 documented as of this encounter Visit Diagnoses Diagnosis Iron deficiency anemia due to chronic blood loss- Primary Iron deficiency anemia secondary to blood loss (chronic) documented in this encounter Historical Medications * This list may reflect changes made after this encounter. ondansetron (ZOFRAN) 4 mg tablet Take 1 tablet (4 mg total) by mouth every 8 (eight) hours as needed for nausea or vomiting added in this encounter Orders Lab Orders Without Results Count Last Ordered D ate First Ordered Date FERRITIN 10/03/2023 IRON PROFILE W/ IBC 1 10/03/2023 Appointment Requests Count Last Ordered Date Fi rst Ordered Date ONCBCN CLINIC APPOINTMENT REQUEST 1 024 ONCBCN LAB APPOINTMENT 1 10/03/2023 documented in this encounter Care Teams Grease Packer Relationship Specialty Start Date End Date Cristian Ling MD [address] [place] [address] PCP - General 10/16/16 documented as of this encounter
--- OUTSIDE RECORDS SUMMARY | 2024-06-12 03:55 | XMS_ITS | Encounter Summary ---
Author Organization 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
--- OUTSIDE RECORDS SUMMARY | 2024-06-12 03:55 | XMS_ITS | Encounter Summary ---
Author Organization [facility] Address [address] [place] [address] Phone Care Team Providers Care Sprinkler Installer Name Role Phone Cristian Ling MD Primary Care Prov ider Reason for Visit * Reason Onset Date Comments iron infusion 10/13/2023 Encounter Details Date Type Department Care Team (Late st Contact Info) Description 10/13/2023 Telephone [facility] Hematology [address] [facility] 7th [place] [address] [place] [address] Jody Foley iron infusion Social History Tobacco [...] on file Legal 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 Message left for relief charge nurse and requested new appt. documented in this encounter Plan of Treatment Not on file documented as of this encounter Visit Diagnoses Diagnosis Iron deficiency anemia due to chronic blood loss- Primary Iron deficiency anemia secondary to blood loss (chronic) documented in this encounter Orders Appointment Requests Count Last Ordered Date Fi rst Ordered Date ONCBCN INFUSION APPT REQUEST 1 10/13/2023 documented in this encounter Care Teams Sprinkler Installer Relationship Specialty Start Date End Date Cristian Ling MD [address] [place] [address] PCP - General 10/16/16 documented as of this encounter
--- OUTSIDE RECORDS SUMMARY | 2024-06-12 03:55 | XMS_ITS | Encounter Summary ---
Author Organization [facility] Address [address] [place] [address] Phone Care Team Providers Care Home Care Assistant Name Role Phone Cristian Ling MD Primary Care Prov ider Reason for Visit * Consultation (Urgent) - Closed Specialty Diagnoses / Procedures Referred By Contac t Referred To Contact Orthopedic Surgery Diagnoses Wrist fracture, closed, right, sequela David Shaw MD [address] [address] Phone: tel: fax: [facility] (All Locations) Referral ID Status Reason Start Date Expiration Date V isits Requested Visits Authorized [id number] Closed Specialty Services Required 04/10/2023 04/11/2024 12 12 Encounter Details Date Type Department Care Team (Late st Contact Info) Description 04/11/2023 9:30 AM CDT Office Visit [facility] Orthopaedic Surgery [address] [facility] 2nd [address] [place] [address] David Shaw MD [address] [place] [address] Right wrist pain (Primary Dx); Wrist fracture, closed, right, sequela; Left wrist pain Social History Tobacco Use Types Packs/Day [...] on file 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 NEW PATIENT VISIT HISTORY OF PRESENT ILLNESS It is my pleasure meeting Jaz. She is here with her son Storm. Jaz had a spill and fractured herright wrist several months ago. She also had a bit of a tumble more recently and ???fracture?? herleft wrist several weeks ago. She has been treated with immobilization. She is here to see me for diagnosis and treatment. PAST MEDICAL HISTORY She has a past medical history of Acid reflux, Heart murmur, High cholesterol, History of blood clots (1960s), History of [place] (myocardial infarction) (2012), History of vertebral fracture (2017), HTN (hypertension), IBS (irritable bowel syndrome), and Vertigo. PAST SURGICAL HISTORY She has a past surgical history that includes Coronary artery bypass graft (2012); Colon surgery (1992); microdiscectomy (1998); Total knee arthroplasty (Right, 2018); FL Fluoro Guided Injection Hip Right (Right, 05/16/2022); FL Fluoro Guided Injection Hip Right (Right, 08/15/2022); and FL Fluoro Guided Injection Hip Right (Right, 12/10/2022). INITIAL REVIEW OF MEDICATIONS She has a current medication list which includes the following prescription(s): acetaminophen, alendronate, amiodarone, apixaban, atorvastatin, calcium carbonate-vitamin d3, medical cannabis, cholecalciferol, clopidogrel, cyanocobalamin, diclofenac dr, diclofenac sodium, ezetimibe, gabapentin, linac lotide, metoprolol tartrate, metoprolol xl, ondansetron odt, pantoprazole dr, and sertraline. DRUG ALLERGIES She is allergic to codeine, latex, milk, and tramadol. SOCIAL HISTORY She reports that she has never smoked. She has been exposed to tobacco smoke. She has never used smokeless tobacco. She reports current drug use. Drug: Medical marijuana. Patient denies consuming alcoholic drinks. FAMILY HISTORY Her family history includes Hypertension in her child; Prostate cancer in her father; Stroke in herchild. REVIEW OF SYSTEMS The intake questionnaire was reviewed. No relevant new findings (noted by the patient over the pastthirty days) were recorded. PHYSICAL EXAMINATION She looks well. Looks her stated age or younger. No distress. Alert and oriented x3. Sitting in a wheelchair with a safety belt. Both wrists are evaluated. Right side has minimal swelling and some bruising over the dorsal aspect of the hand. Full range digital motion no neurological findings. Good perfusion. On the left side she has some swelling of the wrist dorsally. Minimal tenderness. He both good range of motion of the digit and the fingers. IMPRESSION/TREATMENT PLAN We are going to treat her non operatively. I have talked to her son and to her about increase use and weight-bearing. I have also stressed the fact that even though she might feel pain, she will not damage anything in her wrist. I will see her back as needed. Michelle lady. David Shaw M.D., MSc, [facility](C) Professor [facility] Orthopedics documented in this encounter Plan of Treatment Not on file documented as of this encounter Results * XR Wrist Left [...] by: Arie Morris MD David Shaw MD IM XR PROCEDURES Final Resul t * X-ray wrist right 3+ views (04/11/2023 [...] this encounter Visit Diagnoses Diagnosis Right wrist pain- Primary Pain in joint, forearm Wrist fracture, closed, right, sequela Left wrist pain Pain in joint, forearm Right wrist pain Pain in joint, forearm Left wrist pain Pain in joint, forearm documented in this encounter Orders Outpatient Referral Count Last Ordered Date Fir st Ordered Date AMB REFERRAL TO ORTHOPEDIC SURGERY 1 2022 documented in this encounter Additional Health Concerns Infection Onset Date Last Indicated Resolved Time MRSA Comment:IP Review- Patient has documentation of cultures positive for MRSA from outside facility on 02/12. Isolation flag placed for this reason. Please contact IP for any questions or concerns. 02/18/23 12:07 PM Lena Mccoy 02/18/2023 02/18/2023 4 3:05 AM EL TEACHER documented as of this encounter Care Teams Home Care Assistant Relationship Specialty Start Date End Date Cristian Ling MD [address] [place] [address] PCP - General 10/16/16 documented as of this encounter
--- OUTSIDE RECORDS SUMMARY | 2024-06-12 03:55 | XMS_ITS | Encounter Summary ---
Author Organization [facility] Address [address] [place] [address] Phone Care Team Providers Care Tar And Ammonia Pump Operator Name Role Phone Cristian Ling MD Primary Care Prov ider Encounter Details Date Type Department Care Team (Late st Contact Info) Description 09/28/2023 Orders Only [facility] Hematology 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, [address] [place] [phone] Potassium, pl 4.5 3.3 - 4.9 mmol/L [facility] Comment:Testing performed by : [facility], [address] [place] [phone] Chloride 105 97 - 110 mmol/L [facility] Comment:Testing performed by : [facility], [address] [place] [phone] CO2 26 22 - 32 mmol/L [facility] Comment:Testing performed by : [facility], [address] [place] [phone] Anion gap 8 2 - 15 mmol/L [facility] Comment:Testing performed by : [facility], [address] [place] [phone] BUN 18 6 - 25 mg/dL [facility] Comment:Testing performed by : [facility], [address] [place] [phone] Creatinine 1.48(H) 0.60 - 1.10 mg/dL [facility] Comment:Testing performed by : [facility], [address] [place] [phone] Glucose 94 70 - 199 mg/dL [facility] Comment: Interpretive Data Fasting glucose >/= [...] was last revised 2022. Testing performed by: [facility], [address] [place] [phone] Calcium 10.4(H) 8.5 - 10.3 mg/dL [facility] Comment:Testing performed by : [facility], [address] [place] [phone] Bilirubin, total 0.4 0.1 - 1.2 mg/dL [facility] Comment:Testing performed by : [facility], [address] [place] [phone] Protein, pl 7.5 6.5 - 8.5 g/dL [facility] Comment:Testing performed by : [facility], [address] [place] [phone] Albumin 4.5 3.5 - 5.0 g/dL [facility] Comment:Testing performed by : [facility], [address] [place] [phone] Alk phos 84 40 - 130 Units/L [facility] Comment:Testing performed by : [facility], [address] [place] [phone] ALT 144(H) 7 - 45 Units/L [facility] Comment:Testing performed by : [facility], [address] [place] [phone] AST 131(H) 10 - 45 Units/L [facility] Comment:Testing performed by : [facility], [address] [place] [phone] Blood 10/03/2023 11:0 6 AM CDT 10/03/2023 11:09 AM CDT Katja Linares MD LAB BLOOD ORDERABLES Caitlyn dominguez Result [facility] [place] [address] * (ABNORMAL) CBC with auto differential (10/03/2023 11:06 AM CDT) WBC 4.3 3.8 - 9.8 K/cumm Comment:Testing performed by : [facility], [address] [place] [phone] Hgb 8.3(L) 12.1 - 15.1 g/dL [facility] Comment:Testing performed by : [facility], [address] [place], [place] [phone] Hct 25.8(L) 36.1 - 44.3 % [facility] Comment:Testing performed by : [facility], [address] [place] [address] Plt 187 140 - 440 K/cumm [facility] Comment:Testing performed by : [place] [address] MPV 8.6 6.8 - 10.4 fL [facility] Comment:Testing performed by : [facility], [address] [place] [address] RBC 3.01(L) 3.90 - 5.00 M/cumm [facility] Comment:Testing performed by : [place] [address] MCV 86.0 80.0 - 97.6 fL [facility] Comment:Testing performed by : [facility], [address] [place] [address] MCH 27.5 26.7 - 33.7 pg [facility] Comment:Testing performed by : [place] [address] MCHC 31.9(L) 32.7 - 35.5 g/dL [facility] Comment:Testing performed by : [place] [address] RDW CV 15.1(H) 11.8 - 14.6 % [facility] Comment:Testing performed by : [facility], [address] [place] [address] NRBC abs 0.00 0.00 - 0.01 K/cumm [facility] Comment:Testing performed by : [place] [address] Blood 10/03/2023 11:0 6 AM CDT 10/03/2023 11:09 AM CDT us Katja Linares MD LAB BLOOD ORDERABLES Caitlyn dominguez Result [facility] Department [place] [address] documented in this encounter Visit Diagnoses Diagnosis Anemia, unspecified type- Primary documented in this encounter Care Teams Tar And Ammonia Pump Operator Relationship Specialty Start Date End Date Cristian Ling MD [address] [place] [address] PCP - General 10/16/16 documented as of this encounter
--- OUTSIDE RECORDS SUMMARY | 2024-06-12 03:55 | XMS_ITS | Encounter Summary ---
Author Organization [facility] Healthcare Address [address] [place] [address] Care Team Providers Care Atg Architect Name Role Phone Cristian Ling MD Primary Care Prov ider Belinda Quigley INSOLE REINFORCER Unavailable [phone] Encounter Details Date Type Department Care Team (Late st Contact Info) Description 04/15/2023 Orders Only [facility] Information Management [address] [place] [id number] Scanning, Provider Social History Tobacco Use Types Packs/Day Years Used Date Smoking Tobacco: Never Passive Smoke Exposure: Current Smokeless Tobacco: Never [facility] Utilities Answer Date Recorded In the past 12 months has e electric, gas, oil, or water [employer] threatened to shut off services in your [...] week 12/04/2023 How often do you attend buddhist or sikhism serv ices? Never 12/04/2023 Do you belong to any clubs o r organizations such as buddhist groups, unions, fraternal or athletic groups, or [...] staff should administer the PHQ-9) 0 09/28/2020 [facility]ational Stress Questionnaire Answer Date [...] No 12/04/2023 Housing Stability Vital Sign Answer Wael e Recorded In the last 12 months, was t here a time when you were not able to pay the mortgage or rent on time? No 12/04/2023 In the past 12 months, how m any times have you moved where you were living? 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 Gender Identity Female 02/07/2021 4:33 PM CDT Sexual Orientation Straight 02/07/2021 4: 33 PM CDT documented as of this encounter Plan of Treatment Not on file documented as of this encounter Procedures Procedure Name Priority Date/Time Associated Diagnosis Comments SCAN - RADIOLOGY/IMAGING 04/15/2023 documented in this encounter Results * SCAN - RADIOLOGY/IMAGING (04/15/2023) Anatomical Region Laterality Modality Other us Provider Scanning Final Result documented in this encounter Visit Diagnoses Not on filedocumented in this encounter Additional Health Concerns Infection Onset Date Last Indicated Resolved Time MRSA Comment:IP Review- Patient has documentation of cultures positive for MRSA from outside facility on 02/12. Isolation flag placed for this reason. Please contact IP for any questions or concerns. 02/18/23 12:07 PM Lena Mccoy 02/18/2023 02/18/2023 03/03/202 4 3:05 AM BARREL HEADER C. difficile suspected 11/24/2023 11/25/202311/24 10:38 AM CDT COVID: Suspected 12/07/2023 12/07/2023 12/07/2023 5:54 PM CDT documented as of this encounter Care Teams Atg Architect Relationship Specialty Start Date End Date Cristian Ling MD [address] [place] [address] PCP - General 10/16/16 Belinda Quigley, SERG [address] [facility] Mailstop [phone] [place] [address] [employer]OP Outpatient Sales Engineer Account Manager 12/04/23 12/30/23 documented as of this encounter
--- OUTSIDE RECORDS SUMMARY | 2024-06-12 03:57 | XMS_ITS | Encounter Summary ---
Author Organization [facility] Address [address] [place] [address] Care Team Providers Care J2Ee Developer Name Role Phone Cristian Ling MD Primary Care Prov ider Encounter Details Date Type Department Care Team (Late st Contact Info) Description 02/18/2023 Orders Only [facility] Cardiology [address] [place] [id number] Reddy Monahan MD [address] [facility] [address] [place] [address] Social History Tobacco Use Types Packs/Day Years [...] should administer the PHQ-9) 0 09/28/2020 Comments Unknown Sex and Gender Information Value Date Recorded Sex Assigned at Not on file Legal 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 Gender Identity Female 02/07/2021 4:33 PM CDT Sexual Orientation Straight 02/07/2021 4: 33 PM CDT documented as of this encounter Plan of Treatment Not on file documented as of this encounter Procedures Procedure Name Priority Date/Time Associated Diagnosis Comments CARDIOLOGY DOCUMENT SCAN Routine 02/17/2023 8:18 AM CDT CARDIOLOGY DOCUMENT SCAN Routine 02/16/2023 8:17 AM CDT CARDIOLOGY DOCUMENT SCAN Routine 02/16/2023 8:15 AM CDT CARDIOLOGY DOCUMENT SCAN Routine 02/15/2023 8:14 AM CDT CARDIOLOGY DOCUMENT SCAN Routine 02/14/2023 8:12 AM CDT CARDIOLOGY DOCUMENT SCAN Routine 02/13/2023 8:09 AM CDT CARDIOLOGY DOCUMENT SCAN Routine 02/12/2023 8:06 AM CDT documented in this encounter Results * Cardiology Document Scan (02/17/2023 8:18 AM CDT) Anatomical Region Laterality Modality Other Reddy Monahan MD CV CARDIAC SERVICES PROC EDURES Final Result * Cardiology Document Scan (02/16/2023 8:17 AM CDT) Anatomical Region Laterality Modality Other Reddy Monahan MD CV CARDIAC SERVICES PROC EDURES Final Result * Cardiology Document Scan (02/16/2023 8:15 AM CDT) Anatomical Region Laterality Modality Other Reddy Monahan MD CV CARDIAC SERVICES PROC EDURES Final Result * Cardiology Document Scan (02/15/2023 8:14 AM CDT) Anatomical Region Laterality Modality Other Reddy Monahan MD CV CARDIAC SERVICES PROC EDURES Final Result * Cardiology Document Scan (02/14/2023 8:12 AM CDT) Anatomical Region Laterality Modality Other Evonne Crystal NP CV CARDIAC SERVICES PROCEDUR ES Final Result * Cardiology Document Scan (02/13/2023 8:09 AM CDT) Anatomical Region Laterality Modality Other Evonne Crystal NP CV CARDIAC SERVICES PROCEDUR ES Final Result * Cardiology Document Scan (02/12/2023 8:06 AM CDT) Anatomical Region Laterality Modality Other us Reddy Monahan MD CV CARDIAC SERVICES PROC EDURES Final Result documented in this encounter Visit [...] Lena Mccoy 02/18/2023 02/18/2023 4 3:05 AM SOCIAL INSURANCE ADVISER documented as of this encounter Care Teams J2Ee Developer Relationship Specialty Start Date End Date Cristian Ling MD [address] [place] [id number] PCP - General 10/16/16 documented as of this encounter
--- OUTSIDE RECORDS SUMMARY | 2024-06-12 03:57 | XMS_ITS | Encounter Summary ---
Author Organization [facility] Healthcare Address [address] [place] [address] Care Team Providers Care Break Up Worker Name Role Phone Cristian Ling MD Primary Care Prov ider Reason for Visit * Auth/Cert (Routine) Specialty Diagnoses / Procedures Referred By Contac t Referred To Contact Diagnoses A-fib (CMS/HCC) (HCC) A-FIB WITH RVR, LEFT ARM CELLULITIS Procedures N/A Referral ID Status Reason Start Date Expiration Date Visits Re quested Visits Authorized [id number] 1 1 Encounter Details Date Type Department Care Team (Late st Contact Info) Description 02/25/2023 12:58 PM CDT Anesthesia Event [facility] [address] [place] [address] Nallely Spring MD [address] [place] [address] Ayse Valladares CRNA [address] [place] [address] Anesthesia Record Procedure Summary Procedure Name Responsible Anesthesiologist Anesthesia Start Time Anesthesia Stop Time TRANSESOPHAGEAL ECHOCARDIOGRAM (HOOD) W POSSIBLE CARDIOVERSION Nallely Spring MD 02/25/23 1258 02/25/23 1352 Events Date Time Event Comment 02/25/2023 1258 An Start 1301 An Start Data 1305 Start Supplemental O2 1309 An Induction The patient was reevaluated immediately before moderate or deep sedation use and before anesthesia induction. 1317 Anesthesia Ready 1336 Cardioversion No response to forehead tap. Gauze bite block. 200J sync'd x 1 successful. 1344 an stop data 1352 An Stop 1353 Handoff to RN I completed my handoff [...] Patient disposition at the time of handoff: No value filed. Meds Name Total propofol 40 mg propofol 221.88 mg phenylephrine 100 mcg/mL 250 mcg sodium chloride 0.9% infusion 120 mL * Agents Name O2% N2O O2 * Blood No blood administrations on file. Lines, Drains, and Airways Type Details Placement Removal PICC Triple Lumen Placement Date: 02/19/23; Placement Time: 1421; Cath Out Checklist Completed: Yes; Size: 5; Length: 44 cm; Orientation: Left; Location: Basilic, Upper arm; Site Prep: Chlorhexidine; Initial Extremity Circumference: 37 cm; Inserted By: Filemon Bernard RN; Insertion Attempts: 1; Patient Tolerance: Tolerated well; Placement Verification: Blood return, Ultrasound (NEED STAT PCXR FOR PICC PLACEMENT); Removal Date: 03/21/23; Removal Time: 1227; Removal Reason: Discharge 02/19/23 1421 by Jenna Vaughn RN 03/21/23 1227 by Nataliia Ramos RN documented in this encounter Social History [...] on file Legal Sex Female 7:12 AM RETANNER Gender Identity Female 02/07/2021 4:33 PM CDT Sexual Orientation Straight 02/07/2021 4: 33 PM CDT documented as of this encounter OR Notes * Anesthesia Postprocedure Evaluation - Ayse Valladares CRNA - 02/25/2023 1:53 PM CDT Patient: Tiera Lobato Procedure Summary Date: 02/25/23 Room / Location: [facility] Anesthesia Start: 1258 Anesthesia Stop: 1352 Procedure: TRANSESOPHAGEAL ECHOCARDIOGRAM (HOOD) W POSSIBLE CARDIOVERSION Diagnosis: Scheduled Providers: Nallely Spring MD Responsible Provider: Nallely Spring MD Anesthesia Type: MAC ASA Status: 4 Anesthesia Type: MAC Last vitals BP 106/57 Pulse 64 Temp 36.5 ??C (97.7 ??F) Resp 18 SpO2 95% Anesthesia Post Evaluation Patient location during evaluation: PACU Patient participation: complete - patient participated Level of consciousness: fully awake Pain score: 0 Pain management: adequate Airway patency: adequate Evidence of recall: no Cardiovascular status: acceptable Respiratory status: acceptable and room air Hydration status: acceptable Pt is: normothermic Nausea/Vomiting status: none No notable events documented. Cosigned by Nallely Spring MD at 02/26/2023 8:24 AM CDT * Anesthesia Preprocedure Evaluation - Nallely Spring MD - 02/25/2023 1:19 PM CDT Images from the original note were not included. Anesthesia Evaluation Tiera Lobato is a 77 y.o. 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 Hypertension History of NH (myocardial infarction) Lumbar stenosis with neurogenic claudication Other osteoporosis without current pathological fracture Right hip pain Apical variant hypertrophic cardiomyopathy (HCC) Paroxysmal atrial fibrillation (CMS/HCC) (HCC) Atrial fibrillation (CMS/HCC) (HCC) A-fib (CMS/HCC) (HCC) Past Medical History: Diagnosis Date Acid reflux Heart murmur High cholesterol History of blood clots 1960s in leg as teenager - had phlebitis History of NH (myocardial infarction) 2012 History of vertebral fracture 2017 HTN (hypertension) IBS (irritable bowel syndrome) Vertigo Past Surgical History: Procedure Laterality Date COLON SURGERY 1992 Repair burst colon CORONARY ARTERY BYPASS GRAFT 2012 Double by-pass - [facility] FLUORO GUIDED INJECTION HIP RIGHT Right 05/16/2022 FLUORO GUIDED INJECTION HIP RIGHT Right 08/15/2022 FLUORO GUIDED INJECTION HIP RIGHT Right 12/10/[address] James ([place], [place]) TOTAL KNEE ARTHROPLASTY Right 2018 OB History No obstetric history on file. Allergies Allergen Reactions Codeine Hives and Shortness of breath Latex Itching Tramadol Nausea & Vomiting and Unknown Taking? Last Dose Start Date End Date Provider acetaminophen (TYLENOL) 325 mg tablet -- 09/21/12 -- Fidel Carranza MD alendronate (FOSAMAX) 70 mg tablet -- 11/09/18 -- Fidel Carranza MD apixaban (Eliquis) 5 mg tablet -- 12/23/22 -- Sami Stafford MD TAKE 1 TABLET BY MOUTH TWICE DAILY aspirin 81 mg tablet -- 09/21/12 -- Fidel Carranza MD atorvastatin (LIPITOR) 80 mg tablet -- 09/21/12 -- Fidel Carranza MD calcium carbonate-vitamin D3 500 mg(1,250mg) -400 unit chewable tablet -- -- -- Fidel Carranza MD cannabidiol, CBD, (medical cannabis) each -- -- -- Fidel Carranza MD cholecalciferol (VITAMIN D-3) 1,000 unit tablet -- -- -- Fidel Carranza MD clopidogreL (PLAVIX) 75 mg tablet -- 05/01/22 -- Sami Stafford MD Take 1 tablet (75 mg total) by mouth daily cyanocobalamin (Vitamin B-12) 1,000 mcg tablet -- -- -- Fidel Carranza MD diclofenac DR (VOLTAREN) 75 mg EC tablet -- 11/04/19 -- Fidel Carranza MD docusate sodium (COLACE) 100 mg capsule -- 09/21/12 -- Fidel Carranza MD ezetimibe (ZETIA) 10 mg tablet -- 07/30/21 -- Sami Stafford MD TAKE 1 TABLET BY MOUTH EVERY DAY furosemide (LASIX) 40 mg tablet -- 01/13/23 -- Sami Stafford MD Take 1 tablet (40 mg total) by mouth 2 (two) times a day gabapentin (NEURONTIN) 100 mg capsule -- -- -- Fidel Carranza MD LINZESS 145 mcg capsule -- 11/25/17 -- Fidel Carranza MD lisinopriL (PRINIVIL,ZESTRIL) 10 mg tablet -- 04/08/22 -- Sami Stafford MD Take 1 tablet (10 mg total) by mouth daily Notes: Increased dose metoprolol XL (TOPROL-XL) 25 mg extended release tablet -- 01/22/23 -- Sami Stafford MD Take 1 tablet (25 mg total) by mouth daily Notes: Decreased 01/22/23 multivitamin no.44-vit D3-K 1,000-800 unit-mcg capsule -- -- -- Fidel Carranza MD omeprazole (PriLOSEC) 20 mg capsule -- -- -- Fidel Carranza MD sertraline (ZOLOFT) 100 mg tablet -- 11/09/19 -- Fidel Carranza MD Current Facility-Administered Medications: acetaminophen (TYLENOL) tablet 1,000 mg, 1,000 mg, oral, Q6H PRN, 1,000 mg at 02/18/23 1602 amiodarone (PACERONE) tablet 400 mg, 400 mg, oral, TID, 400 mg at 02/25/23 09 apixaban (ELIQUIS) tablet 5 mg, 5 mg, oral, BID, 5 mg at 02/25/23 09 atorvastatin (LIPITOR) tablet 80 mg, 80 mg, oral, Nightly, 80 mg at 02/24/232056 calcium carbonate-vitamin D3 1,250mg (500mg elemental) - 5 mcg (200 units) per tablet 1 tablet, 1 tablet, oral, Daily, 1 tablet at 02/25/23909 camphor-menthoL (SARNA) 0.5-0.5 % lotion, , topical, Q6H PRN, 1 Application at 02/22/232219 clopidogreL (PLAVIX) tablet 75 mg, 75 mg, oral, Daily, 75 mg at 02/25/23909 digoxin (LANOXIN) tablet 125 mcg, 125 mcg, oral, Q24H, 125 mcg at 02/25/23909 ezetimibe (ZETIA) tablet 10 mg, 10 mg, oral, Daily, 10 mg at 02/25/23909 gabapentin (NEURONTIN) tablet 600 mg, 600 mg, oral, BID, 600 mg at 02/25/23909 lidocaine (LIDODERM) 5 % patch 2 patch, 2 patch, transdermal, Daily, 2 patch at 02/24/232151 linaCLOtide (LINZESS) capsule 145 mcg, 145 mcg, oral, Before breakfast, 145 mcg at 02/22/23901 metoprolol XL (TOPROL-XL) extended release tablet 50 mg, 50 mg, oral, BID, 50 mg at 02/25/23909 ondansetron (ZOFRAN) injection 4 mg, 4 mg, intravenous, Q8H PRN, 4 mg at 02/23/232140 pantoprazole DR (PROTONIX) extended release tablet 40 mg, 40 mg, oral, Daily, 40 mg at 02/25/23910 prochlorperazine (COMPAZINE) injection 5 mg, 5 mg, intravenous, Q6H PRN, 5 mg at 02/18/23844 sertraline (ZOLOFT) tablet 50 mg, 50 mg, oral, Daily, 50 mg at 02/25/23910 sodium chloride 0.9% flush 5-10 mL, 5-10 mL, intra-catheter, Q12H AGUS, 10 mL at 02/24/232152 sodium chloride 0.9% flush 5-20 mL, 5-20 mL, intra-catheter, PRN sodium chloride 0.9% infusion, 30 mL/hr, intravenous, Continuous, Last Rate: 250 mL/hr at 02/25/23 1315, Rate Change at 02/25/23 1315 vancomycin 1500 mg/515 mL in sodium chloride 0.9% (premix) 1,500 mg, 1,500 mg, intravenous, Q24H, 1,500 mg at 02/24/23 2308 Facility-Administered Medications Ordered in Other Encounters: phenylephrine (JULIETTE-SYNEPHRINE) 1 mg/10 mL (100 mcg/mL) in sodium chloride 0.9% (premix), , intravenous, PRN, 100 mcg at 02/25/23 1316 propofoL (DIPRIVAN) 10 mg/mL IV, , intravenous, Continuous PRN, Last Rate: 51.6 mL/hr at 02/25/23 1309, 100 mcg/kg/min at 02/25/23 1309 propofoL (DIPRIVAN) 10 mg/mL IV, , intravenous, PRN, 40 mg at 02/25/23 1314 Social History Tobacco Use Smoking Status Never Passive exposure: Current Smokeless Tobacco Never Alcohol Use: Not At Risk (09/28/2020) AUDIT-C Frequency of Alcohol Consumption: Never Average Number of Drinks: Not on file Frequency of Binge Drinking: Not on file Substance and Sexual Activity Drug Use Yes Types: Medical marijuana Comment: Tablets - tid Family History Problem Relation Age of Onset Prostate cancer Father Stroke Child Hypertension Child Vitals: 02/25/23 1100 02/25/23 1200 02/25/23 1208 BP: 135/68 139/78 Pulse: 88 95 103 Resp: 18 14 15 Temp: 37 ??C (98.6 ??F) 37 ??C (98.6 ??F) SpO2: 95% 95% PT: 02/17/2023: 20.3 sec (H) INR: 02/17/2023: 1.78 (H) APTT: 02/24/2023: 75 sec (H) Hgb A1C: 02/18/2023: 5.8 % (H) CBC RBC: 02/24/2023: 2.53 M/cumm (L) RDW: No results found for requested labs within last 30 days. MCHC: 02/24/2023: 32.0 g/dL (L) MCH: 02/24/2023: 29.2 pg MCV: 02/24/2023: 91.3 fL Hct: 02/24/2023: 23.1 % (L) Hgb: 02/24/2023: 7.4 g/dL (L) WBC: 02/24/2023: 6.5 K/cumm MPV: 02/24/2023: 11.6 fL Platelets: 02/24/2023: 283 K/cumm RDW CV: 02/24/2023: 14.1 % RDW Sd: 02/24/2023: 46.5 fL BMP Glucose: 02/24/2023: 93 mg/dL Calcium: 02/24/2023: 9.6 mg/dL Sodium: 02/24/2023: 139 mmol/L Potassium: 02/24/2023: 4.1 mmol/L CO2: 02/24/2023: 29 mmol/L Chloride: 02/24/2023: 105 mmol/L BUN: 02/24/2023: 6 mg/dL Creatinine: 02/24/2023: 1.07 mg/dL STOP-Bang Total Score: 3 Short Blessed Total Score: 4 DOS Physical Exam Medical history, medications, and allergies reviewed. Attestation: This PAT evaluation 02/25/2023. Airway Exam: Mallampati: III Cervical ROM: FROM TM distance: 3.5 Cardiovascular Exam: Rate: regular Rhythm: regular Pulmonary Exam: LCTA, bilat EENT Exam: trachea midline Skin Exam: Skin is warm and dry. Current state: Patient's current state is cooperative. Anesthesia Plan ASA 4 My patient is approved for the Anesthesia Controlled Medication protocol when under care of a CARBURIZER Planned anesthesia: MAC Induction: Induction: intravenous. Informed Consent: Anesthesia plan and risks discussed with patient. [...] MAR Action Action Date Dose Rate Site phenylephrine (JULIETTE-SYNEPHRINE) 1 mg/10 mL (100 mcg/mL) in sodium chloride 0.9% (premix) intravenous, As needed, Starting on Fri02/25/23 at 1316, Anesthesia Intra-op Given 02/25/2023 1:31 PM CDT 50 mcg Given 02/25/2023 1:28 PM CDT 50 mcg Given 02/25/2023 1:24 PM CDT 50 mcg propofoL (DIPRIVAN) 10 mg/mL IV intravenous, Continuous PRN, Starting on Fri02/25/23 at 1309, Anesthesia Intra-op Rate/Dose Change 02/25/2023 1:34 PM CDT 80 mcg/kg/min 41.28 mL/hr New Bag 02/25/2023 1:09 PM CDT 100 mcg/kg/min 51.6 mL/h r propofoL (DIPRIVAN) 10 mg/mL IV intravenous, As needed, Starting on Fri02/25/23 at 1314, Anesthesia Intra-op Given 02/25/2023 1:14 PM CDT 40 mg sodium chloride 0.9% infusion 30 mL/hr, intravenous, Continuous, Starting on Fri02/25/23 at 1300 Rate/Dose Change 02/25/2023 1:36 PM CDT 30 mL/hr Rate/Dose Change 02/25/2023 1:15 PM CDT 250 mL/ hr Rate/Dose Verify 02/25/2023 12:58 PM CDT 30 mL/ hr documented in this encounter Additional Health Concerns Infection Onset Date Last Indicated Resolved Time MRSA Comment:IP Review- Patient has documentation of cultures positive for MRSA from outside facility on 02/12. Isolation flag placed for this reason. Please contact IP for any questions or concerns. 02/18/23 12:07 PM Lena Mccoy 02/18/2023 02/18/2023 4 3:05 AM RETANNER documented as of this encounter Care Teams Break Up Worker Relationship Specialty Start Date End Date Cristian Ling MD [address] [place] [address] PCP - General 10/16/16 documented as of this encounter
--- OUTSIDE RECORDS SUMMARY | 2024-06-12 03:57 | XMS_ITS | Encounter Summary ---
Author Organization [facility] Healthcare Address [address] [place] [address] Care Team Providers Care Long Chain Quiller Tender Name Role Phone Cristian Ling MD Primary Care Prov ider Reason for Visit * Auth/Cert (Routine) Specialty Diagnoses / Procedures Referred By Contac t Referred To Contact Diagnoses A-fib (CMS/HCC) (HCC) A-FIB WITH RVR, LEFT ARM CELLULITIS Procedures N/A Referral ID Status Reason Start Date Expiration Date Visits Re quested Visits Authorized [id number] 1 1 Encounter Details Date Type Department Care Team (Latest Contact Info) Description 02/17/2023 5:03 PM CDT - 03/21/2023 3:10 PM CDT Hospital Encounter [facility] [address] [place] [address] Franca Echevarria, DO [address] [place] [address] Estella Ellis MD PhD [address] [place] [address] Jose Roberto Santos MD PhD [address] [facility] [address] [place] [address] Benjamín Mancuso MD [address] 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 Gender Identity Female 02/07/2021 4:33 PM CDT Sexual Orientation Straight 02/07/2021 4: 33 PM CDT documented as of this encounter Last Filed Vital Signs Vital Sign Reading Time Taken Comments Blood Pressure 136/65 03/21/2023 9:53 AM CDT Pulse 66 03/21/2023 9:53 AM CDT Temperature 36.5 ??C (97.7 ??F) 03/21/2023 9:53 AM CD T Respiratory Rate 18 03/21/2023 9:53 AM CDT Oxygen Saturation 100% 03/21/2023 9:53 AM CDT Inhaled Oxygen Concentration - - Weight 75.2 kg (165 lb 12.8 oz) 03/21/2023 6:50 AM CDT Height 162.6 cm (5' 4 ) 02/17/2023 5:13 PM CDT Body Mass Index 28.46 02/17/2023 5:13 PM CDT documented in this encounter Discharge Summaries * Te Baker MD PhD - 03/20/2023 10:43 AM CDT Images from the original note were not included. Inpatient Discharge Summary BRIEF OVERVIEW Admitting Provider: Franca Echevarria DO, [facility] Discharge Provider: Gordon Huang MD Primary Care Physician at Discharge: Cristian Ling MD [phone] Admission Date: 02/17/2023 Discharge Date: 03/21/2023 Admission Location: [facility] Problems/Diagnoses: Principal Problem: A-fib (CMS/HCC) (HCC) Active Problems: Paroxysmal atrial fibrillation (CMS/HCC) (HCC) Resolved Problems: No resolved hospital problems. DETAILS OF HOSPITAL STAY Presenting Problem/History of Present Illness: Per HPI: She presents to the hospital after dizzy spell 02/11, found to be in AFib with RVR. She was sitting outside in the sun, began to feel lightheaded, and called the nurse at her assisted livingfacility. She states she blacked out and next thing she knows, she was being taken to the hospital. She had recently been discharged from [facility] 5 days prior (02/06) after treatment of R radial fracture)--during this admission as well, she was in AFib with RVR, loaded and started on sotalol 40mg BID (dose escalation limited by hypotension). Ind the ED, she was found to have HR in the 130s and febrile. EKG in the ED showed AFib with RVR. Per OSH notes, she was tachycardic to the 130s, reuiring IV diltiazem bolus, transitioned to PO dilt 360mg daily. Trop I was 0.042-->0.039-->0.030 (0-0.034). Due to poor HR control, she was started on metoprolol 25mg q8h with plan to uptitrate for goal HR. Further investigation showed signs of multifocal PNA both on CXR and CT CAP. She was also found to have an infiltrative IV with cellulitis and blood cultures positive for MRSA. Additionally, , she had what appeared to be asymptomatic bacteruria. Her Procalcitonin was minimally elevated but lactated was normal. WBC throughout this time was normal. She was initially treated with doxy, flagyl, vanc, ceftriaxone. Thereafter, she became hypotensive to 90s/50s, bolused at least 2L andrequiring miladys, which was weaned shortly after. 02/15, she was switched from dilt to amio with bolus and continuous infusion along with metoprolol 50mg , rebolused on 02/16. She underwent DCCV 02/16 with successful conversion (post DCCV EKG showed NSR with HR in the 70s and TWI in anterior and lateral leads, seen in 2019 as well) for a few hours and subsequently went back into AFib with RVR. Later 02/16 she was transferred to the ICU for further monitoring, discontinued doxycycline. She continued to remain in RVR with rates in the high 130s-150s. Due to poor control of her AFib with RVR refractory to electrical and chemical cardioversion complicated by hemodynamic instability, she was transferred [facility] for possible ablation. She follows with Dr. Stafford. Last appointment was 01/13/23. At this time, she had gained about 10lbs over 1 week, refractory to Lasix 10-20mg BID. She also noted increased leg swelling, 2-pillow orthopnea, but no PND or abdominal discomfort. She endorses SOB while walking on level ground, but no palpitations or chest discomfort. She has been complicant with Eliquis 5mg BID without any missed doses.Att his time, Cr was found to be elevated, thought to be secondary to cardiorenal syndrome. At thistime, she was recommended to increase Lasix to 40mg BID, metop XL to 50mg daily, Continue Eliquis 5mg BID, plan for CV and repeat echo. She ultimately underwent DCCV successfully to NSR 01/20 without known recurrence until 02/02. Hospital Course: #Suprapubic abdominal pain, stable #Nausea, improved #IBS Developed new nausea and dizziness at rest from 03/01-, managed by Zofran. Suprapubic abd pain stable but limiting PO tolerance. Etiology unclear but in pt w/ extensive abd surg history (bowel perforation in , cholecystectomy) pursued further eval with GI and increased anti-nausea and pain regimen. Will also check amyloid labs given pt w/ hx/o HCM and abd pain with other possible etiologiesincluding gastritis and PUD. - Zofran 8 mg BID AGUS for nausea and Tylenol 1000 mg TID AGUS for pain - KUB (03/11): WNL - CT A/P (03/16): no definite explanation for abd pain - Several liters of LR for dehydration throughout hospitalization - continue Linaclotide for IBS - AL amyloid screening labs (03/17): K/L ratio normal - GI consult (03/17): alternate anti-emetics w/ compazine (avoiding d/t c/f urinary retention), ctn home linzess, colonoscopy outpt #Dizziness, improved #Orthostatic hypotension, improved After extensive workup (see prior progress notes) pt remains orthostatic with likely contributing factors including age, prolonged bed rest, and limited oral hydration. -bMRI (03/07) w/o acute findings -neuro c/s: Meclizine 25 mg q6 PRN -> d/c 03/12 d/t concerns for urinary retention which has since resolved - AM cortisol (03/12) w/o signs of adrenal insufficiency - Midodrine 5 mg PRN before physical therapy to reduce orthostasis but was not been used #pAF with RVR s/p DCCV Home regimen: metop 50 mg daily. Previously on sotalol 80 mg (15 d supply last dispensed 02/07/23). TTE 02/20 read LVEF 55-60, no valvular dz. S/p DCCV. NSR except reverting back to Afib w RVR on 03/04 iso holding metop due to n/v. Metop briefly started but then discontinued iso severe n/v/dizziness/vertigo. Was in NSR with Amio 200 BID for many days, w/ recent afib w/ RVR working with PT that responded to metop PO and IV. - Continue with home Eliquis - Continue amio 400 PO daily - Continue metoprolol 25 ER daily and metop tartrate 25 before PT to prevent afib (hold for HR <55) - continue dose reduced Gabapentin at 200 BID (changed on 03/06 for ~75% reduction w/ eGFR 25). - Will need to reschedule office visit w/ KNIFE GLAZER Harpreet Ravi at Dr. Stafford's office planned for todayOct 5th #Anemia of Chronic disease Baseline 9-10. 8.0 on day of admission then mostly in 7s therafter. Fe 24, Ferritin 299, TIBC 192, Tsat 13% suggestive of anemia of chronic disease. B12 1886, folate 15.3. Hgb dropped to 6.9 on 03/15 -> 1 unit pRBC -> 8.5 post-transfusion; no active signs of bleeding. - Post-transfusion Hgb stable, CTM w/ daily CBCs #MRSA cellulitis #MRSA bacteremia #Septic pulmonary emboli Positive cultures 02/14, but started empirically on vanc 02/12. In house read of OSH CT CAP with septic emboli in lungs, confirmed on repeat this admission. 02/20 Bcx+ within 24 hours MRSE 1/2 bottles, likely contaminant. TTE 02/20 read LVEF 55- 60, no valvular dz or vegetations. 02/20 LUE ultrasound with cellulitis with underlying myositis and small non-drainable fluid collection, verified by CT LUE without osteomyelitis. 02/20 ACCS c/s rec nonoperative. L PICC placed after initial + Bcx, okay to leave inper ID for Vanc course. 02/20 Bcx+ MRSE 1/2 bottles likely contaminant. - ID c/s with recs Abx x4 weeks: Vanc 4 weeks end (02/12-03/03) => PO Linezolid 600mg BID (03/03-03/11, stopped d/t concern for contribution to nausea) => IV ceftaroline (03/12-03/16) -Concern that linezolid may be contributing to dizziness; initially trialed with food but did not improve #CLAUDIA on CKD 3a, improving Per chart review Baseline Cr ~0.9. Cr 1.22 => 2.02 iso restarting home lasix 40 BID and recent IV vanc (last dose supratherapeutic). FeNa 1.3% suggests intrinsic cause. Currently still up from baseline iso poor PO intake, requiring intermittent IV fluid repletion. - Improve with fluids and continuing holding lasix. - discuss continuing lasix 40 mg daily as outpatient #Urinary Retention, resolved New overnight (03/12) w/ bladder scan showing 900 mL. Straight cath removal of 1.1L. Meclizine discontinued and pt w/o further retention -CTM and avoid anticholinergic agents #HTN #HLD #CAD c/b OR s/p CABG #apical HCM No indication for triple therapy AC/antiplatelet at this time. Lipid panel with LDL 37, A1c 5.4. Home HTN regimen: lisinopril 10mg. - Atorvastatin 80, Zetia, Plavix, home Eliquis - No plan to restart ASA given AC - Continue to hold home lisinopril 10 mg d/t orthostasis while inpt #R rib pain, resolved #Hip pain, resolved Several day hx, reproducible on exam. Now resolved with Lidocaine patch. - Continue with lidocaine patches #R arm fracture #R arm fracture Fracture after ground-level fall 02/06. S/p cast with plan for outpatient follow up. C/o swelling after ortho recast while here but neurovascular intact without numbness/tingling/loss of dexterity. Xray arm wit nondisplaced arm fracture. - RUE platform weight bearing - XR 02/26 per Ortho rec to ensure no interval displacement: minimally displaced ulnar styloid process fracture. [facility]. -Repeat XR 03/20 per ortho which showed Healing mildly impacted, displaced, intra-articular fracture of the distal radius in unchanged alignment. -Outpt follow up #prior DVT Remote, unprovoked. Chronically on Eliquis and contiued #OA #DDD Current home regimen: Voltaren gel, gabapentin 600mg QID - Lidocaine patches and APAP as needed #osteoporosis Currently on alendronate 70 mg qWeekly - CTM, held inpt. Will resume outpt. #GERD Home regimen: omeprazole 20mg - PPI #anxiety/depression - Continue Zoloft Active Issues Requiring Follow-up: Arm fracture follow up Cardiology follow up Test Results Pending at Discharge: Pending Labs Order Current Status Basic metabolic panel In process COVID-19 Coronavirus RNA Nasopharyngeal In process Hepatic function panel In process Hepatic function panel, serum In process Immunofixation, urine In process Lipid panel In process Magnesium In process Magnesium In process Reticulocyte Count In process TSH reflex to free T4 In process Vancomycin level random In process Vancomycin level trough In process Operative Procedures Performed: Procedure(s): CARDIOVERSION 39713 Other Procedures: None Pertinent Test Results: HOOD 02/25/2023 Shaquille Solano MD performed the HOOD probe placement with Jamari Dias MD present. Initial rhythm atrial fibrillation. Normal LV size with LVH with apical hypertrophy. Normal LV systolic function. RV size and systolic function.Normal LA and RA sizes. ?Trvial AR. Otherwise no significant valvular abnormalities. OWEN is free of thrombus. Small color flow Doppler evidence of PFO. No pericardial effusion. Visualized portions of aorta with moderate atherosclerosis.? ?Synchronized DC cardioversion performed x1 (200 J) SUCCESSFUL to NSR. TTE 02/20/2023 SUMMARY: ?Afib during study which is technically difficult: LV size is normal. LVEF 55-60%. Apical hypertrophy present. Normal RV function. No significant valve disease. Estimated PASP 20mmHg+RA pressure. RA pressure is normal. Discharge Details Physical Exam at Discharge: Discharge Condition: stable Pulse: 66 Resp: 18 BP: 136/65 Temp: 36.5 ??C (97.7 ??F) Weight: 75.2 kg (165 lb 12.8 oz) Pertinent Exam Findings at Discharge: R arm fracture w/ cast Discharge Disposition: Code Status at Discharge: Full Code Discharge Instructions: Dear Tiera Filemon Lobato, It was a pleasure to take care of you in the hospital. You were hospitalized for atrial fibrillation and blood stream infection. For you atrial fibrillation, we modified your medications and performed cardioversion, and now you are in regular rhythm (sinus rhythm). Your blood stream grew a bacteriacalled MRSA that was likely due to a line infection at the outside hospital. To treat your blood stream infection, we gave you antibiotics through your PICC line for a total of 4 weeks until Mar 16. Medication updates: Please take AMIODARONE 400 mg daily for atrial fibrillation Please take METOPROLOL TARTRATE 25 mg twice a day for atrial fibrillation If you feel heart palpitation or lightheadedness lasting overnight, please contact your primary care physician or Dr. Stafford's office for further evaluation. Other follow-up items: Keep track of your weight at home. If you gain more than 5 lbs over the course of a few days or seean increase in swelling please contact Dr. Stafford's office regarding restarting your diuretic (waterpill), furosemide. Call If you feel heart palpitation or lightheadedness lasting overnight, please contact your primary care physician or Dr. Stafford's office for further evaluation. You will need to call and reschedule your visit with senior cisco network engineer nurse practitioner Harpreet Mora works with Dr. Stafford. You will get a call from the Orthopedic Department to schedule an appointment to manage your right arm fracture. If you do not receive a call try Please call your primary care provider, Cristian Ling MD [phone], to schedule apost-hospital visit within the next two weeks so that they can make sure you are still doing well after you are discharged. The following appointments were made for you to follow up, keep these appointments and reschedule if necessary: Future Appointments Date Time Provider Department Center 06/11/2023 11:45 AM Sami Stafford MD CAR [facility] 8B Cardiology 08/08/2023 10:45 AM LAB, CAM 7 ONC ONC LAB [facility] 08/08/2023 11:15 AM Katja Joe MD HEM [facility] 7 [facility] Questions or Concerns?? Below are reasons to call the Infectious Diseases Clinic RIGHT AWAY! 1. Watery diarrhea more than 3 times in 24 hours. 2. Nausea, vomiting, and/or belly pain 3. Rash and/or itching 4. Chills 5. Drenching night sweats 6. Fever >100.3 7. Increasing redness and/or drainage from a wound 8. Confusion or personality changes 9. Antibiotic catheter problems. Based on your symptoms, we may be able to help you over the phone or have your home health nurse help you. In some cases, you may need to go to the Emergency Room. Contact Infectious Diseases Clinic: Toll-free: [phone] Hospital ID Doctor: Fara Cardenas [facility] Infectious Diseases Offices [facility] [address] [place] [address], [address] [place] [address] Patient parking available north of [facility] Other Instructions Event Monitor Please forward the results to Dr. Sami Stafford and PILO Ravi. Thank you Choose duration of testin Days Please select the performing department: [facility] Discharge Medications: Current Medications TAKE these medications acetaminophen 325 mg tablet Commonly known as: TYLENOL alendronate 70 mg tablet TAKE 1 TABLET BY MOUTH ONE TIME PER WEEK Commonly known as: FOSAMAX aspirin 81 mg enteric coated tablet daily. atorvastatin 80 mg tablet TAKE 1 TABLET AT BEDTIME. Commonly known as: LIPITOR calcium carbonate-vitamin D3 1,250 mg (500 mg elemental)-400 unit chewable tablet Take 1 tablet by mouth daily cholecalciferol 25 mcg (1,000 unit) tablet Take 1 tablet (1,000 Units total) by mouth daily Commonly known as: VITAMIN D-3 clopidogreL 75 mg tablet Take 1 tablet (75 mg total) by mouth daily Commonly known as: PLAVIX cyanocobalamin 1,000 mcg tablet Take 2 tablets (2,000 mcg total) by mouth daily For: prevention of vitamin B12 deficiency Commonly known as: Vitamin B-[address] 75 mg EC tablet Take 1 tablet (75 mg total) by mouth 2 (two) times a day Commonly known as: VOLTAREN docusate sodium 100 mg capsule TAKE 1 CAPSULE TWICE DAILY NEEDED. For: constipation Commonly known as: COLACE Eliquis 5 mg tablet TAKE 1 TABLET BY MOUTH TWICE DAILY Generic drug: apixaban ezetimibe 10 mg tablet TAKE 1 TABLET BY MOUTH EVERY DAY Commonly known as: ZETIA furosemide 40 mg tablet Take 1 tablet (40 mg total) by mouth 2 (two) times a day Commonly known as: LASIX gabapentin 100 mg capsule Take by mouth 4 (four) times a day Commonly known as: NEURONTIN Linzess 145 mcg capsule Take by mouth daily. Generic drug: linaCLOtide lisinopriL 10 mg tablet Take 1 tablet (10 mg total) by mouth daily Commonly known as: PRINIVIL,ZESTRIL medical cannabis each 1 Dose 3 (three) times a day as needed Tablets metoprolol XL 25 mg extended release tablet Take 1 tablet (25 mg total) by mouth daily Commonly known as: TOPROL-XL multivitamin no.44-vit D3-K 1,000-800 unit-mcg capsule daily. omeprazole 20 mg capsule Take 1 capsule (20 mg total) by mouth daily Commonly known as: PriLOSEC sertraline 100 mg tablet Take 0.5 tablets (50 mg total) by mouth daily Commonly known as: ZOLOFT Outpatient Follow-Up: Future Appointments Date Time Provider Department Center 06/11/2023 11:45 AM Sami Stafford MD [facility] Cardiology 08/08/2023 10:45 AM [facility] 08/08/2023 11:15 AM Katja Joe MD HEM [facility] 7 [facility] Cosigned by Gordon Huang MD at 03/21/2023 11:26 AM CDT Associated attestation - Gordon Huang MD - 03/21/2023 11:26 AM CDT I have seen and examined the patient on 03/21/23. I agree with the findings and plan of care as documented in the resident's/fellow's note and as discussed with the resident/fellow. Gordon Huang MD, MSCI, [facility], [facility] Director, Cardio-Oncology Fellowship Director, Cardio-Oncology [facility] Co-Director, [facility] Division of Cardiology [facility] Office: [phone] Pager: [phone] documented in this encounter Discharge Instructions * Discharge Instructions* Te Baker MD PhD - 02/21/2023 11:23 AM CDT Images from the original note were not included. Dear Ms. Tiera Lobato, It was a pleasure to take care of you in the hospital. You were hospitalized for atrial fibrillation and blood stream infection. For you atrial fibrillation, we modified your medications and performed cardioversion, and now you are in regular rhythm (sinus rhythm). Your blood stream grew a bacteriacalled MRSA that was likely due to a line infection at the outside hospital. To treat your blood stream infection, we gave you antibiotics through your PICC line for a total of 4 weeks until Mar 16. Medication updates: Please take AMIODARONE 400 mg daily for atrial fibrillation Please take METOPROLOL TARTRATE 25 mg twice a day for atrial fibrillation If you feel heart palpitation or lightheadedness lasting overnight, please contact your primary care physician or Dr. Stafford's office for further evaluation. Other follow-up items: Keep track of your weight at home. If you gain more than 5 lbs over the course of a few days or seean increase in swelling please contact Dr. Stafford's office regarding restarting your diuretic (waterpill), furosemide. Call If you feel heart palpitation or lightheadedness lasting overnight, please contact your primary care physician or Dr. Stafford's office for further evaluation. You will need to call and reschedule your visit with senior cisco network engineer nurse practitioner Harpreet Mora works with Dr. Stafford. You will get a call from the Orthopedic Department to schedule an appointment to manage your right arm fracture. If you do not receive a call try Please call your primary care provider, Cristian Ling MD [phone], to schedule apost-hospital visit within the next two weeks so that they can make sure you are still doing well after you are discharged. The following appointments were made for you to follow up, keep these appointments and reschedule if necessary: Future Appointments Date Time Provider Department Center 06/11/2023 11:45 AM Sami Stafford MD [facility] 8[facility] Cardiology 08/08/2023 10:45 AM LAB, CAM 7 ONC ONC LAB [facility] 08/08/2023 11:15 AM Katja Joe MD HEM [facility] 7 [facility] Questions or Concerns?? Below are reasons to call the Infectious Diseases Clinic RIGHT AWAY! 1. Watery diarrhea more than 3 times in 24 hours. 2. Nausea, vomiting, and/or belly pain 3. Rash and/or itching 4. Chills 5. Drenching night sweats 6. Fever >100.3 7. Increasing redness and/or drainage from a wound 8. Confusion or personality changes 9. Antibiotic catheter problems. Based on your symptoms, we may be able to help you over the phone or have your home health nurse help you. In some cases, you may need to go to the Emergency Room. Contact Infectious Diseases Clinic: Toll-free: [phone] Hospital ID Doctor: Fara Cardenas [facility] Infectious Diseases Offices [facility] [address] [facility], [address] [place] [address] Patient parking available north of [facility] * Attachments The following attachments cannot be sent through Care Everywhere. * A-fib (Atrial Fibrillation) (AfterCare(R) Instructions(ER/ED)) ([facility]) * Amiodarone (By mouth) ([facility]) documented in this encounter Medications at Time [...] 02/23/20 24 documented as of this encounter Ordered Prescriptions Prescription Sig Dispense Quantity Refills Last Filled Start Date End Date pantoprazole DR (PROTONIX) 40 mg EC tabletIndications:T reatment of Non-Bleeding Gastric Disorder Take 1 tablet (40 mg total) by mouth daily 30 tablet 11 3 diclofenac sodium (VOLTAREN) 1 % gel Apply 2 g topically 3 (three) times a day 20 g 3 linaCLOtide (Linzess) 145 mcg capsuleIndications: Constipation Predominant Irritable Bowel Syndrome Take 1 capsule (145 mcg total) by mouth daily before breakfast 30 capsule 3 calcium carbonate-vitamin D3 1,250mg (500mg elemental) - 5 mcg (200 units) per tablet Take 1 tablet by mouth daily 30 tablet 11 3 atorvastatin (LIPITOR) 80 mg tablet Take 1 tablet (80 mg total) by mouth nightly 30 tablet 11 3 apixaban (Eliquis) 5 mg tabletIndications:a trial fibrillation Take 1 tablet (5 mg total) by mouth 2 (two) times a day 60 tablet 3 ondansetron ODT (ZOFRAN-ODT) 4 mg disintegrating tablet Take 1 tablet (4 mg total) by mouth every 8 (eight) hours as needed for nausea or vomiting 20 tablet 3 06/19/19 24 metoprolol tartrate (LOPRESSOR) 25 mg immediate release tablet Take 1 tablet (25 mg total) by mouth daily as needed (to be given if pt has palpitations and is sympotmatic) 0 3 12/03/19 24 amiodarone (PACERONE) 400 mg tablet Take 1 tablet (400 mg total) by mouth daily 30 tablet 11 3 08/21/19 24 acetaminophen 500 mg capsule Take 2 capsules (1,000 mg total) by mouth 3 (three) times a day 30 tablet 3 02/23/20 24 gabapentin (NEURONTIN) 100 mg capsule Take 2 capsules (200 mg total) by mouth 2 (two) times a day 120 capsule 11 3 11/25/19 24 documented in this encounter Discharge Disposition Disposition Code Departure Means Destination Comment s Discharge to [facility] documented in this encounter Progress Notes * Baylee Burkett RN - 03/21/2023 2:51 PM CDT 03/21/23 1000 Discharge Summary Chart reviewed For Medical Necessity Does patient have a planned readmission to hospital planned? No Discharge Disposition [facility] facility Specify Facility [facility] Contact Number [phone]/fax [phone] Discharge Records Transfer Form Completed;Chart Copied Equipment/Provider Needs No Home Needs Identified Discharge Additional Assistance Does the patient need discharge transport arranged? Yes Has discharge transport been arranged? Yes Details of Transportation [facility] - trip# [phone] D/C Transport Anticipated Date 03/21/23 D/C Transport Anticipated Time 1400 Discharge Transportation Communication Mode of transport has been discussed with the patient/family. All are agreeable to the plan and understand their responsibilities to ensure the safe transfer. No further CM/SW intervention is anticipated at this time. Post Discharge Care Provider Post Discharge Care Plan DC Summary has been faxed to next level of care provider (see Follow Up Providers) Per medical team, patient is medically stable for discharge at this time. Patient has been acceptedto [facility]. CM spoke with the patient/family, admissions, medical team, and RN regarding discharge planning, and all are agreeable to discharge. DC Summary faxed to [phone]. Post-acute care transfer packet completed and will be sent with the patient. RN provided with report number to nurses station [phone]. Room # 626B provided by facility. Mode of transport has been discussed with the patient/family, MD, nursing staff. All are agreeable to plan and understand their responsibilities to ensure the safe transfer. * Baylee Burkett RN - 03/21/2023 2:48 PM CDT 03/21/23 1448 Communications Important Message from Medicare notice given to patient? Yes IM letter completed with patient on 03/21 @ 14:35. Patient was informed of the planned discharge date, the date the beneficiary's financial liability begins, the beneficiary's appeal rights, and how and when to initiate an appeal. IM letter was placed in the unit???s designated medical record bin cecilia uploaded into the patient???s chart. * Te Baker MD PhD - 03/21/2023 6:50 AM CDT Cardiology Daily Progress Note Subjective Interval events -PINAON -Discussed discharge planning w/ daughter in law Nallely who is agreeable to placement today despite shared concerns that alf afib control has been challenging as well as intermittent orthostasisduring prolonged hospitalization -Denies any new sx -States she was able to do orthostats and go to bathroom without dizziness -Still needs her right wrist brace prior to discharge Objective Vitals: 24hr Min/Max: Temp Min: 36.5 ??C (97.7 ??F) Max: 37 ??C (98.6 ??F) Pulse Min: 60 Max: 73 BP Min: 119/68 Max: 173/67 Resp Min: 18 Max: 62 SpO2 Min: 95 % Max: 98 % Most Recent : Vitals: 03/21/23 0020 BP: 119/68 Pulse: 69 Resp: 20 Temp: 37 ??C (98.6 ??F) SpO2: 97% I/O last 3 completed shifts: In: 1440 [P.O.:1390; I.V.:50] Out: 625 [Urine:625] Physical Exam: General: Not in distress, appears comfortable sitting up in chair HEENT: Normocephalic, no conjunctival pallor, no scleral icterus Cardiac: Normal rate; regular rhythm; audible S1 and S2 without appreciable murmurs, rubs, or gallops; 2+ radial pulses; no LE edema; no JVD nor hepato- jugular reflux Pulm: clear to auscultation bilaterally; no wheezes, rales, or rhonchi GI/Abd: Soft, nontender, nondistended MSK: Normal bulk and tone, no joint effusions or major deformities Skin: No rash or bruises Extremities: minimal pitting edema in BLE Neuro: AAO x 4, CN II-XII grossly intact, moves all extremities spontaneously. Notable labs: Cr improving over the past week Assessment Tiera Lobato is a 77 y.o. female with a PMH of pAF, Apical variant HCM, CAD with OR in 2012 s/p CABG with LAWSON to LAD and SVG to OM, HTN, DDD,diverticulitis, vertigo, prior DVT, OA who presents as an OSH transfer for AFib with RVR complicated by hemodynamic instability now rate controlled onoral dig / metop /amio found to have MRSA cellulitis and MRSA bacteremia with septic pulmonary emboli on Vanc. Now HDS in NSR mostly s/p DCCV with persistent n/v and abd pain preventing adequate PO intake who is pending dispo. Plan #Suprapubic abdominal pain, improved #Nausea, improved #IBS Developed new nausea and dizziness at rest from 03/01-, managed by Zofran. Suprapubic abd pain stable but limiting PO tolerance. Etiology unclear but in pt w/ extensive abd surg history (bowel perforation in 1980s, cholecystectomy) will pursue further eval with GI and increase anti-nausea and painregimen. Will also check amyloid labs given pt w/ hx/o HCM and abd pain. Though gastritis and PUD also possible. - Zofran 8 mg BID AGUS for nausea and Tylenol 1000 mg TID AGUS for pain - KUB (03/11): WNL - CT A/P (03/16): no definite explanation for abd pain - 1L of LR for dehydration - continue Linaclotide for IBS - AL amyloid screening labs (03/17): K/L ratio normal - GI consult (03/17): alternate anti-emetics w/ compazine (avoiding d/t c/f urinary retention), ctn home linzess, colonoscopy outpt #Dizziness, improved #Orthostatic hypotension, improved After extensive workup (see prior progress notes) pt remains orthostatic with likely contributing factors including age, prolonged bed rest, and limited oral hydration. -bMRI (03/07) w/o acute findings -neuro c/s: Meclizine 25 mg q6 PRN -> d/c 03/12 d/t concerns for urinary retention which has since resolved - AM cortisol (03/12) w/o signs of adrenal insufficiency - Midodrine 5 mg PRN before physical therapy to reduce orthostasis but has not been used #pAF with RVR s/p DCCV Home regimen: metop 50 mg daily. Previously on sotalol 80 mg (15 d supply last dispensed 02/07/23). TTE 02/20 read LVEF 55-60, no valvular dz. S/p DCCV. NSR except reverting back to Afib w RVR on 03/04 iso holding metop due to n/v. Metop briefly started but then discontinued iso severe n/v/dizziness/vertigo. Was in NSR with Amio 200 BID for many days, w/ recent afib w/ RVR working with PT that responded to metop PO and IV. - Continue with home Eliquis - Continue amio 400 PO daily - Continue metoprolol 25 ER daily and metop tartrate 25 before PT to prevent afib (hold for HR <55) - Dose reduce Gabapentin to 200 BID on 03/06 (~75% reduction w/ eGFR 25). - Will need to reschedule office visit w/ KNIFE GLAZER Harpreet Ravi at Dr. Stafford's office planned for Mar 20 #Anemia of Chronic disease Baseline 9-10. 8.0 on day of admission then mostly in 7s therafter. Fe 24, Ferritin 299, TIBC 192, Tsat 13% suggestive of anemia of chronic disease. B12 1886, folate 15.3. Hgb dropped to 6.9 on 03/15 -> 1 unit pRBC -> 8.5 post-transfusion; no active signs of bleeding. If Hgb stable in coming days can reduce lab draws for pt w/ ~1 mo hospital stay now awaiting placement - Post-transfusion Hgb stable, CTM w/ daily CBCs #MRSA cellulitis #MRSA bacteremia #Septic pulmonary emboli Positive cultures 02/14, but started empirically on vanc 02/12. In house read of OSH CT CAP with septic emboli in lungs, confirmed on repeat this admission. 02/20 Bcx+ within 24 hours MRSE 1/2 bottles, likely contaminant. TTE 02/20 read LVEF 55- 60, no valvular dz or vegetations. 02/20 LUE ultrasound with cellulitis with underlying myositis and small non-drainable fluid collection, verified by CT LUE without osteomyelitis. 02/20 ACCS c/s rec nonoperative. L PICC placed after initial + Bcx, okay to leave inper ID for Vanc course. 02/20 Bcx+ MRSE 1/2 bottles likely contaminant. - ID c/s with recs Abx x4 weeks: Vanc 4 weeks end (02/12-03/03) => PO Linezolid 600mg BID (03/03-03/11, stopped d/t concern for contribution to nausea) => IV ceftaroline (03/12-03/16) -Concern that linezolid may be contributing to dizziness; initially trialed with food but did not improve #CLAUDIA on CKD 3a, improving Per chart review Baseline Cr ~0.9. Cr 1.22 => 2.02 iso restarting home lasix 40 BID and recent IV vanc (last dose supratherapeutic). FeNa 1.3% suggests intrinsic cause. Currently still up from baseline iso poor PO intake, requiring intermittent IV fluid repletion. - Improving with fluids, holding lasix. Continue to monitor - Can resume with lasix 40 mg daily when CLAUDIA resolves #Urinary Retention, resolved New overnight (03/12) w/ bladder scan showing 900 mL. Straight cath removal of 1.1L. Meclizine discontinued and pt w/o further retention -CTM and avoid anticholinergic agents #HTN #HLD #CAD c/b OR s/p CABG #apical HCM No indication for triple therapy AC/antiplatelet at this time. Lipid panel with LDL 37, A1c 5.4. Home HTN regimen: lisinopril 10mg. - Atorvastatin 80, Zetia, Plavix - Hold ASA given AC. - Continue to hold home lisinopril 10 mg - Home lasix 40 mg BID held in CCU. Hold now given slight bump in Cr. #R rib pain, resolved #Hip pain, resolved Several day hx, reproducible on exam. Now resolved with Lidocaine patch. - Continue with lidocaine patches #R arm fracture Fracture after ground-level fall 02/06. S/p cast with plan for outpatient follow up. C/o swelling after ortho recast while here but neurovascular intact without numbness/tingling/loss of dexterity. Xray arm wit nondisplaced arm fracture. - RUE platform weight bearing - XR 02/26 per Ortho rec to ensure no interval displacement: minimally displaced ulnar styloid process fracture. [facility]. -Repeat XR 03/20 per ortho which showed Healing mildly impacted, displaced, intra-articular fracture of the distal radius in unchanged alignment. #prior DVT Remote, unprovoked. Chronically on Eliquis. S/p DCCV. Resume Eliquis. #OA #DDD Current regimen: Voltaren gel, gabapentin 600mg QID - Lidocaine patches and APAP as needed, gabapentin 600mg BID - If breakthrough pain, can consider fentanyl patch #osteoporosis Currently on alendronate 70mg qWeekly - CTM, held inpt. Will resume outpt. #GERD Home regimen: omeprazole 20mg - PPI #anxiety/depression - Continue Zoloft Code: Full DVT Prophylaxis: Eliquis Diet: 2g Na Dispo: [facility] Te Baker MD PhD Internal Medicine PGY-1 03/21/2023 6:50 AM Cosigned by Gordon Huang MD at 03/21/2023 11:25 AM CDT Associated attestation - Gordon Huang MD - 03/21/2023 11:25 AM CDT I have seen and examined the patient on 03/21/23. I agree with the findings and plan of care as documented in the resident's/fellow's note and as discussed with the resident/fellow. Gordon Huang MD, MSCI, FACC, FICOS Director, Cardio-Oncology Fellowship Director, [facility] Co-Director, [facility] Division of Cardiology [facility] Office: [phone] Pager: [phone] * Ira Brittney William, OT - 03/20/2023 11:32 AM CDT Occupational Therapy Occupational Therapy Progress Note NOTE: This is a summary note of the martinez components of the treatment session. For full details, review chart for all flowsheets documented on by this occupational therapy clinician on this date. Vitalsigns documented in vital signs flowsheet. Care plan progress documented in Care Plan Activity. For questions, please review the treatment team and contact the occupational therapist currently assigned to this patient. If an occupational therapist is not assigned to this patient, please call [phone]. 03/20/23 1132 General Session Type Treatment OT Received On 03/20/23 Safe Environment Arm band checked;Patient found sitting in chair;Gait belt utilized for all out of bed mobility Subjective Agreeable to Therapy Family/Caregiver Present No Precautions Precautions Fall risk Weight Bearing Restrictions Yes RUE Weight Bearing NWB (okay for WBTE) Precaution Comments PPE worn by therapist: gloves, gown, surgical mask. Pain Assessment Pain Assessment No/denies pain Balance Balance Yes Static Sitting Balance Static Sitting-Balance Support No upper extremity supported Static Sitting-Sitting Surface Chair Static Sitting-Level of Assistance Independent Dynamic Sitting Balance Dynamic Sitting-Balance Support No upper extremity supported Dynamic Sitting-Balance Forward lean;Reaching for objects Dynamic Sitting-Sitting Surface (toilet) Dynamic Sitting-Level of Assistance Distant supervision Dynamic Sitting-Comments safety Static Standing Balance Static Standing-Balance Support No upper extremity supported Static Standing-Standing Surface Floor Static Standing-Level of Assistance Contact guard Static Standing-Comment/# of Minutes safety ADL ADLS (WDL) X Grooming Grooming: Where assessed Standing at sink Grooming: Level of assistance Minimum Assist (min task, CGA balance) Grooming: Assistance with Manipulation of containers LE Dressing LE Dressing: Where assessed Chair LE Dressing: Level of assistance Moderate Assist LE Dressing: Assistance with Don/doff R sock;Don/doff L sock;Thread RLE into pants;Thread RLE into underwear;Pull up over hips Toileting Toileting: Where assessed Toilet Toileting: Level of assistance Minimum Assist Toileting: Assistance with Clothing management up Bed Mobility Bed Mobility No Transfers Transfer Yes Toilet Transfers Toilet Transfer From Chair with arms Toilet Transfer Type To and from Toilet Transfer to Standard toilet Toilet Transfer Technique Ambulating Toilet Transfer: Equipment Hand hold;IV Pole Toilet Transfers Minimal assistance Toilet Transfers Comments min assist for force production during sit to stand and min assist for balance during functional mobility to/from bathroom Cognition Arousal/Alertness Alert Attention Span Appears intact Current communication Appears Intact Orientation Oriented X4 (person, place, time, situation) Following Commands Follows all commands and directions without difficulty Safety Judgment Good awareness of safety precautions Insight Fully aware of deficits Problem Solving Able to problem solve independently Compliance/Behavior Easy to engage Other Comments Comments Pt is highly motivated to participate in therapy session this date focused on ADL completion and functional mobility. Of note, pt reports no dizziness or nausea with mobility. Pt would continue to benefit from skilled OT intervention to support return to PLOF. Daily Activity - 6 Clicks Putting on and taking off regular lower body clothing 2 Bathing 2 Toileting 3 Putting on and taking off upper body clothing 3 Personal Grooming 3 Eating Meals 3 Total Score (range 6-24) 16 Score Interpretation 35.96 Safe Environment End of Therapy Session Safe Environment End of Therapy Session Patient left in recliner;Chair alarm in place and activated;RN notified;Call light within reach;Overbed table within reach Assessment Problem List Decreased ADL independence;Decreased IADL independence;Decreased functional mobility;Decreased balance;Decreased endurance Barriers to Discharge Current Mobility Status;Other (Comment) (impaired ADL performance) Barrier Comments fall risk Plan Plan Continue with current plan;If this is the last note, consider this the discharge summary Recommendation/Plan OT Recommendation Inpatient Rehab Facility Patient at high risk for Falls;Readmission;Injury due to decreased ability to care for self;Injury due to reduced functional status;Injury due to balance deficits;Injury at home as patient has not returned to prior level of function Recommend Inpatient Rehab/Acute Rehab due to Ability to actively participate in intensive therapy 3hours/day, 5 days/week or 900 minutes per week;Highly motivated to participate in therapy;Not at baseline due to impaired ability to complete ADLs;Impaired ability to complete functional mobility;Likely to return to the community at discharge with support system in place;Requires greater than 25% physical assistance with most mobility tasks;Requires greater than 25% physical assistance with most ADL tasks OT Frequency during current admission 3-5x/wk Treatment/Interventions during current admission ADL/IADL retraining;Balance Training;Endurance training;Functional activity;Functional mobility training;Strengthening;Therapeutic activity Progress during current admission Progressing toward goals OT - Next Appointment 03/21/23 Multi-Disciplinary Problems (from Occupational Therapy) Active Problems Problem: Dressings Lower Extremities Start Date: 02/24/23 Goal Start Date Expected End Date End Date STG - Patient to complete lower body dressing 02/24/23 01/07/24 -- Goal Details: With supervision Problem: Dressing Upper Extremities Start Date: 02/24/23 Goal Start Date Expected End Date End Date STG - Patient will dress upper body 02/24/23 01/07/24 -- Goal Details: With supervision Problem: Grooming Start Date: 02/24/23 Goal Start Date Expected End Date End Date STG - Patient will complete grooming 02/24/23 01/07/24 -- Goal Details: in standing at bathroom sink with supervision Problem: Toileting Start Date: 02/24/23 Goal Start Date Expected End Date End Date STG - Patient will complete toileting tasks with 02/24/23 01/07/24 -- Goal Details: supervision Problem: Transfers Start Date: 02/24/23 Goal Start Date Expected End Date End Date STG - Patient will perform toilet transfer 02/24/23 01/07/24 -- Goal Details: to toilet in bathroom with supervision Problem: OT Misc Start Date: 02/24/23 Goal Start Date Expected End Date End Date OT LTG - Misc 1 02/24/23 01/07/24 -- Goal Details: Pt will complete ADLs with independence. * Nelia Walter, PT - 03/20/2023 10:08 AM CDT Physical Therapy Physical Therapy Progress Note NOTE: This is a summary note of the martinez components of the treatment session. For full details, review chart for all flowsheets documented on by this physical therapy clinician on this date. Vital signs documented in vital signs flowsheet. Care plan progress documented in Care Plan Activity. For questions, please review the treatment team and contact the PT or ASSISTANT TECHNICIAN currently assigned to this patient. If a physical therapy clinician is not assigned to this patient, please call [phone]. 03/20/23 1008 PT Last Visit Session Type Treatment PT Received On 03/20/23 Safe Environment Arm band checked;Patient found sitting in chair;Gait belt utilized for all out of bed mobility Subjective Agreeable to Therapy Family/Caregiver Present No Current Functional Status PT Functional Mobility Functional mobility and gait training Precautions Precautions Fall risk Weight Bearing Restrictions Yes RUE Weight Bearing NWB Precaution Comments Pt OK for WB throught the elbow Activity Tolerance Activity Tolerance Comments Isaak: hard during ambulation Pain Assessment Pain Assessment 0-10 Pain Score 4 Patient's Stated Pain Goal No pain Pain Type Acute pain Pain Location Leg Pain Orientation Right Pain Descriptors Aching Pain Frequency Intermittent Pain Interventions Medication (See MAR) Response to Interventions Partial pain relief Cognition Overall Cognitive Status WFL Arousal/Alertness Alert;Appropriate responses to stimuli Attention Span Appears intact Memory Appears intact Current communication Appears Intact Orientation Oriented X4 (person, place, time, situation) Following Commands Follows all commands and directions without difficulty Safety Judgment Good awareness of safety precautions Awareness of Errors Good awareness of errors made Insight Fully aware of deficits Problem Solving Able to problem solve independently Compliance/Behavior Easy to engage Perseveration Not present Balance Balance Yes Static Sitting Balance Static Sitting-Balance Support Feet supported Static Sitting-Sitting Surface Chair Static Sitting-Level of Assistance Independent Dynamic Sitting Balance Dynamic Sitting-Balance Support Feet supported Dynamic Sitting-Balance Forward lean;Reaching for objects Dynamic Sitting-Sitting Surface Chair Dynamic Sitting-Level of Assistance Distant supervision Dynamic Sitting-Comments for safety Static Standing Balance Static Standing-Balance Support Bilateral upper extremity supported Static Standing-Standing Surface Floor Static Standing-Level of Assistance Contact guard Static Standing-Comment/# of Minutes cga for safety Bed Mobility Bed Mobility No Transfers Transfer Yes Transfer 1 Transfer From 1 Sit Transfer Type 1 To and from Transfer to 1 Stand Technique 1 Sit to stand;Stand to sit Transfer Device 1 Platform walker Transfer Level of Assistance 1 Minimum Assist Trials/Comments 1 Rossana for force production Ambulation Ambulation Yes Ambulation 1 Distance (ft) 1 80 Surface 1 Level tile Device 1 Platform walker Assistance 1 Contact Guard Assist Gait: Requires verbal cues to 1 Use assistive device safely;Pace activity;Utilize appropriate gait sequencing Gait Deviations 1 Roma - decreased;Step length - decreased;Weight bearing through UE???s - increased Ambulation Comments 1 cga for safety, pt demo'd good balance during ambulation Stairs Stairs No LUE Assessment LUE Assessment WFL RLE Assessment RLE Assessment WFL LLE Assessment LLE Assessment WFL Basic Mobility - 6 Click How much difficulty does the patient have: Turning over in bed 3 How much difficulty does the patient currently have: Sitting down and standing up from a chair witharms? 3 How much difficulty does the patient have: Moving from lying on back to sitting on the side of the bed? 3 How much difficulty does the patient have: Moving to and from a bed to a chair including wheelchair? 3 How much help does the patient currently need: Walk in hospital room? 3 How much help from another person does the patient currently need: Climbing 3-5 steps with a railing? 2 Total 6 Click Score (range 6-24) 17 Safe Environment End of Therapy Session Safe Environment End of Therapy Session Patient left in chair;Call light within reach;Overbed tablewithin reach (Needs met in position of comfort) Assessment Prognosis Good Problem List Gait deviations;Decreased strength;Decreased endurance;Decreased mobility Barriers to Discharge Current Mobility Status Plan Plan Continue with current plan Recommendation/Plan PT Recommendation/Plan Inpatient Rehab Facility Patient at high risk for Falls;Readmission;Injury due to decreased ability to care for self;Injury due to reduced functional status;Injury at home as patient has not returned to prior level of function Recommend Inpatient Rehab/Acute Rehab due to Ability to actively participate in intensive therapy 3hours/day, 5 days/week or 900 minutes per week;Highly motivated to participate in therapy;Not at baseline due to impaired ability to complete ADLs;Impaired ability to complete functional mobility;Likely to return to the community at discharge with support system in place;Requires greater than 25% physical assistance with most mobility tasks PT Frequency during current admission 3-5x/wk Treatment/Interventions during current admission Balance Training;Endurance training;Functional activity;Functional transfer training;Gait training;Strengthening;Therapeutic activity;Therapeutic exercise;Transfer training;Stair training Progress during current admission Progressing toward goals PT - Next Appointment 03/21/23 Multi-Disciplinary Problems (from Physical Therapy) Active Problems Problem: Mobility Start Date: 02/20/23 Goal Start Date Expected End Date End Date STG - Patient will ambulate 02/20/23 01/07/24 -- Goal Details: 250 ft, SBA, WW Problem: Transfers Start Date: 02/20/23 Goal Start Date Expected End Date End Date STG - Patient will perform bed mobility 02/20/23 01/07/24 -- Goal Details: IND Goal Start Date Expected End Date End Date STG - Patient will transfer sit to and from stand 02/20/23 01/07/24 -- Goal Details: SBA, WW Problem: PT Misc Start Date: 02/20/23 Goal Start Date Expected End Date End Date PT STG - Misc 1 02/20/23 01/07/24 -- Goal Details: Patient and caregivers will participate in and demonstrate understanding of therapeutic exercise and safe mobility strategies to improve independence with functional mobility. * Te Baker MD PhD - 03/20/2023 7:03 AM CDT Cardiology Daily Progress Note Subjective Interval events -SHAQEGOMEZ -Pt noted up in chair eating w/o difficulty -States she no longer has trouble with orthostatics though PO intake is still limited -Plan for discussion w/ daughter regarding discharge planning Objective Vitals: 24hr Min/Max: Temp Min: 36.5 ??C (97.7 ??F) Max: 37.1 ??C (98.8 ??F) Pulse Min: 62 Max: 71 BP Min: 134/55 Max: 148/58 Resp Min: 18 Max: 20 SpO2 Min: 95 % Max: 98 % Most Recent : Vitals: 03/20/23 0050 BP: Pulse: Resp: Temp: SpO2: 97% I/O last 3 completed shifts: In: 1080 [P.O.:1030; I.V.:50] Out: 975 [Urine:975] Physical Exam: General: Not in distress, appears comfortable HEENT: Normocephalic, no conjunctival pallor, no scleral icterus Cardiac: Normal rate; regular rhythm; audible S1 and S2 without appreciable murmurs, rubs, or gallops; 2+ radial pulses; no LE edema; no JVD nor hepato- jugular reflux Pulm: clear to auscultation bilaterally; no wheezes, rales, or rhonchi GI/Abd: Soft, nontender, nondistended MSK: Normal bulk and tone, no joint effusions or major deformities Skin: No rash or bruises Extremities: minimal pitting edema in BLE Neuro: AAO x 4, CN II-XII grossly intact, moves all extremities spontaneously. Notable labs: Cr improving over the past week Assessment Tiera Lobato is a 77 y.o. female with a PMH of pAF, Apical variant HCM, CAD with OR in 2013 s/p CABG with LAWSON to LAD and SVG to OM, HTN, DDD,diverticulitis, vertigo, prior DVT, OA who presents as an OSH transfer for AFib with RVR complicated by hemodynamic instability now rate controlled onoral dig / metop /amio found to have MRSA cellulitis and MRSA bacteremia with septic pulmonary emboli on Vanc. Now HDS in NSR mostly s/p DCCV with persistent n/v and abd pain preventing adequate PO intake who is pending dispo. Plan #Suprapubic abdominal pain #Nausea, improved #IBS Developed new nausea and dizziness at rest from 03/01-, managed by Zofran. Suprapubic abd pain stable but limiting PO tolerance. Etiology unclear but in pt w/ extensive abd surg history (bowel perforation in 1980s, cholecystectomy) will pursue further eval with GI and increase anti-nausea and painregimen. Will also check amyloid labs given pt w/ hx/o HCM and abd pain. Though gastritis and PUD also possible. - Zofran 8 mg BID AGUS for nausea and Tylenol 1000 mg TID AGUS for pain - KUB (03/11): WNL - CT A/P (03/16): no definite explanation for abd pain - 1L of LR for dehydration - continue Linaclotide for IBS - AL amyloid screening labs (03/17): K/L ratio normal - GI consult (03/17): alternate anti-emetics w/ compazine (avoiding d/t c/f urinary retention), ctn home linzess, colonoscopy outpt #Dizziness, improved #Orthostatic hypotension, improved After extensive workup (see prior progress notes) pt remains orthostatic with likely contributing factors including age, prolonged bed rest, and limited oral hydration. -bMRI (03/07) w/o acute findings -neuro c/s: Meclizine 25 mg q6 PRN -> d/c 03/12 d/t concerns for urinary retention which has since resolved - AM cortisol (03/12) w/o signs of adrenal insufficiency - Midodrine 5 mg PRN before physical therapy to reduce orthostasis but has not been used #pAF with RVR s/p DCCV Home regimen: metop 50 mg daily. Previously on sotalol 80 mg (15 d supply last dispensed 02/07/23). TTE 02/20 read LVEF 55-60, no valvular dz. S/p DCCV. NSR except reverting back to Afib w RVR on 03/04 iso holding metop due to n/v. Metop briefly started but then discontinued iso severe n/v/dizziness/vertigo. Was in NSR with Amio 200 BID for many days, w/ recent afib w/ RVR working with PT that responded to metop PO and IV. - Continue with home Eliquis - Continue amio 400 PO daily with potential to increase to 400 BID if needed - Continue metoprolol 25 ER daily and metop tartrate 25 before PT to prevent afib (hold for HR <55) - Dose reduce Gabapentin to 200 BID on 03/06 (~75% reduction w/ eGFR 25). - Will need to reschedule office visit w/ KNIFE GLAZER Harpreet Ravi at Dr. Stafford's office planned for todayOct 5th #Anemia of Chronic disease Baseline 9-10. 8.0 on day of admission then mostly in 7s therafter. Fe 24, Ferritin 299, TIBC 192, Tsat 13% suggestive of anemia of chronic disease. B12 1886, folate 15.3. Hgb dropped to 6.9 on 03/15 -> 1 unit pRBC -> 8.5 post-transfusion; no active signs of bleeding. If Hgb stable in coming days can reduce lab draws for pt w/ ~1 mo hospital stay now awaiting placement - Post-transfusion Hgb stable, CTM w/ daily CBCs #MRSA cellulitis #MRSA bacteremia #Septic pulmonary emboli Positive cultures 02/14, but started empirically on vanc 02/12. In house read of OSH CT CAP with septic emboli in lungs, confirmed on repeat this admission. 02/20 Bcx+ within 24 hours MRSE 1/2 bottles, likely contaminant. TTE 02/20 read LVEF 55- 60, no valvular dz or vegetations. 02/20 LUE ultrasound with cellulitis with underlying myositis and small non-drainable fluid collection, verified by CT LUE without osteomyelitis. 02/20 ACCS c/s rec nonoperative. L PICC placed after initial + Bcx, okay to leave inper ID for Vanc course. 02/20 Bcx+ MRSE 1/2 bottles likely contaminant. - ID c/s with recs Abx x4 weeks: Vanc 4 weeks end (02/12-03/03) => PO Linezolid 600mg BID (03/03-03/11, stopped d/t concern for contribution to nausea) => IV ceftaroline (03/12-03/16) -Concern that linezolid may be contributing to dizziness; initially trialed with food but did not improve #CLAUDIA on CKD 3a, improving Per chart review Baseline Cr ~0.9. Cr 1.22 => 2.02 iso restarting home lasix 40 BID and recent IV vanc (last dose supratherapeutic). FeNa 1.3% suggests intrinsic cause. Currently still up from baseline iso poor PO intake, requiring intermittent IV fluid repletion. - Improving with fluids, holding lasix. Continue to monitor - Can resume with lasix 40 mg daily when CLAUDIA resolves #Urinary Retention, resolved New overnight (03/12) w/ bladder scan showing 900 mL. Straight cath removal of 1.1L. Meclizine discontinued and pt w/o further retention -CTM and avoid anticholinergic agents #HTN #HLD #CAD c/b OR s/p CABG #apical HCM No indication for triple therapy AC/antiplatelet at this time. Lipid panel with LDL 37, A1c 5.4. Home HTN regimen: lisinopril 10mg. - Atorvastatin 80, Zetia, Plavix - Hold ASA given AC. - Continue to hold home lisinopril 10 mg - Home lasix 40 mg BID held in CCU. Hold now given slight bump in Cr. #R rib pain, resolved #Hip pain, resolved Several day hx, reproducible on exam. Now resolved with Lidocaine patch. - Continue with lidocaine patches #R arm fracture Fracture after ground-level fall 02/06. S/p cast with plan for outpatient follow up. C/o swelling after ortho recast while here but neurovascular intact without numbness/tingling/loss of dexterity. Xray arm wit nondisplaced arm fracture. - RUE platform weight bearing - XR 02/26 per Ortho rec to ensure no interval displacement: minimally displaced ulnar styloid process fracture. [facility]. Ortho will also see while on the floor - appreciate recs. #prior DVT Remote, unprovoked. Chronically on Eliquis. S/p DCCV. Resume Eliquis. #OA #DDD Current regimen: Voltaren gel, gabapentin 600mg QID - Lidocaine patches and APAP as needed, gabapentin 600mg BID - If breakthrough pain, can consider fentanyl patch #osteoporosis Currently on alendronate 70mg qWeekly - CTM, held inpt. Will resume outpt. #GERD Home regimen: omeprazole 20mg - PPI #anxiety/depression - Continue Zoloft Code: Full DVT Prophylaxis: Eliquis Diet: 2g Na Dispo: SNF Te Reddy Samuel, MD PhD Internal Medicine PGY-1 03/20/2023 7:04 AM Cosigned by Gordon Huang MD at 03/20/2023 5:28 PM CDT Associated attestation - Gordon Huang MD - 03/20/2023 5:28 PM CDT I have seen and examined the patient on 03/20/23. I agree with the findings and plan of care as documented in the resident's/fellow's note and as discussed with the resident/fellow. Gordon Huang MD, MSCI, FACC, FICOS Director, Cardio-Oncology Fellowship Director, [facility] Co-Director, [facility] Division of Cardiology [facility] Office: [phone] Pager: [phone] * Storm Bach - 03/19/2023 4:11 PM CDT Spiritual Care Note Dilshad Isreal [phone] 03/19/23 1600 Time Spent Start Time 1115 Stop Time 1145 Time Calculation (min) 30 min Patient Spiritual Assessment Spirituality Assessed Focus of Care Clinical Encounter Type Visited With Patient Response Type Routine visit Routine Visit Follow-up Reason for visit Support Outcomes and Progress Preserve dignity and respect Achieved Demonstrating care and respect Achieved Meaning making (Memory making) Achieved Establish rapport and connectedness Achieved Sense of peace Achieved Lessen anxiety Achieved Lessen someone's feelings of lonliness Achieved Interventions Interventions Active listening;Assist with finding purpose;Explore cultural values;Offer emotional support;Offer spiritual/protestant support;Reminiscing * Mikal Barrow MD - 03/19/2023 1:44 PM CDT Cardiology Daily Progress Note Subjective Interval events -1 episode of AF w/ RVR that resolved with 1x metop tartrate 25 mg, was asymptomatic -NAEON -ready for SNF Objective Vitals: 24hr Min/Max: Temp Min: 36.5 ??C (97.7 ??F) Max: 37.1 ??C (98.7 ??F) Pulse Min: 60 Max: 69 BP Min: 122/70 Max: 159/57 Resp Min: 16 Max: 19 SpO2 Min: 94 % Max: 100 % Most Recent : Vitals: 03/19/23 0808 BP: 148/58 Pulse: 69 Resp: 19 Temp: 36.5 ??C (97.7 ??F) SpO2: 97% I/O last 3 completed shifts: In: 500 [P.O.:500] Out: 775 [Urine:775] Physical Exam: General: Not in distress, appears comfortable HEENT: Normocephalic, no conjunctival pallor, no scleral icterus Cardiac: Normal rate; regular rhythm; audible S1 and S2 without appreciable murmurs, rubs, or gallops; 2+ radial pulses; no LE edema; no JVD nor hepato- jugular reflux Pulm: clear to auscultation bilaterally; no wheezes, rales, or rhonchi GI/Abd: Soft, nontender, nondistended MSK: Normal bulk and tone, no joint effusions or major deformities Skin: No rash or bruises Extremities: minimal pitting edema in BLE Neuro: AAO x 4, CN II-XII grossly intact, moves all extremities spontaneously. Notable labs: Cr improving over the past week Assessment Tiera Lobato is a 77 y.o. female with a PMH of pAF, Apical variant HCM, CAD with OR in 2013 s/p CABG with LAWSON to LAD and SVG to OM, HTN, DDD,diverticulitis, vertigo, prior DVT, OA who presents as an OSH transfer for AFib with RVR complicated by hemodynamic instability now rate controlled onoral dig / metop /amio found to have MRSA cellulitis and MRSA bacteremia with septic pulmonary emboli on Vanc. Now HDS in NSR mostly s/p DCCV with persistent n/v and abd pain preventing adequate PO intake who is pending dispo. Plan #Suprapubic abdominal pain #Nausea, stable #IBS Developed new nausea and dizziness at rest from 03/01-, managed by Zofran. Suprapubic abd pain stable but limiting PO tolerance. Etiology unclear but in pt w/ extensive abd surg history (bowel perforation in 1980s, cholecystectomy) will pursue further eval with GI and increase anti-nausea and painregimen. Will also check amyloid labs given pt w/ hx/o HCM and abd pain. Though gastritis and PUD also possible. - Zofran 8 mg BID AGUS for nausea and Tylenol 1000 mg TID AGUS for pain - KUB (03/11): WNL - CT A/P (03/16): no definite explanation for abd pain - 1L of LR for dehydration - continue Linaclotide for IBS - AL amyloid screening labs (03/17): K/L ratio normal - GI consult (03/17): alternate anti-emetics w/ compazine (avoiding d/t c/f urinary retention), ctn home linzess, colonoscopy outpt #Dizziness, improved #Orthostatic hypotension, improved After extensive workup (see prior progress notes) pt remains orthostatic with likely contributing factors including age, prolonged bed rest, and limited oral hydration. -bMRI (03/07) w/o acute findings -neuro c/s: Meclizine 25 mg q6 PRN -> d/c 03/12 d/t concerns for urinary retention which has since resolved - AM cortisol (03/12) w/o signs of adrenal insufficiency - Midodrine 5 mg PRN before physical therapy to reduce orthostasis but has not been used #pAF with RVR s/p DCCV Home regimen: metop 50 mg daily. Previously on sotalol 80 mg (15 d supply last dispensed 02/07/23). TTE 02/20 read LVEF 55-60, no valvular dz. S/p DCCV. NSR except reverting back to Afib w RVR on 03/04 iso holding metop due to n/v. Metop briefly started but then discontinued iso severe n/v/dizziness/vertigo. Was in NSR with Amio 200 BID for many days, w/ recent afib w/ RVR working with PT that responded to metop PO and IV. - Continue with home Eliquis - Continue amio 400 PO daily with potential to increase to 400 BID if needed - Continue metoprolol 25 ER daily and metop tartrate 25 before PT to prevent afib (hold for HR <55) - Dose reduce Gabapentin to 200 BID on 03/06 (~75% reduction w/ eGFR 25). - Scheduled to see KNIFE GLAZER Harpreet Ravi at Dr. Stafford's office on Mar 20 #Anemia of Chronic disease Baseline 9-10. 8.0 on day of admission then mostly in 7s therafter. Fe 24, Ferritin 299, TIBC 192, Tsat 13% suggestive of anemia of chronic disease. B12 1886, folate 15.3. Hgb dropped to 6.9 on 03/15 -> 1 unit pRBC -> 8.5 post-transfusion; no active signs of bleeding. If Hgb stable in coming days can reduce lab draws for pt w/ ~1 mo hospital stay now awaiting placement - Post-transfusion Hgb stable, CTM w/ daily CBCs #MRSA cellulitis #MRSA bacteremia #Septic pulmonary emboli Positive cultures 02/14, but started empirically on vanc 02/12. In house read of OSH CT CAP with septic emboli in lungs, confirmed on repeat this admission. 02/20 Bcx+ within 24 hours MRSE 1/2 bottles, likely contaminant. TTE 02/20 read LVEF 55- 60, no valvular dz or vegetations. 02/20 LUE ultrasound with cellulitis with underlying myositis and small non-drainable fluid collection, verified by CT LUE without osteomyelitis. 02/20 ACCS c/s rec nonoperative. L PICC placed after initial + Bcx, okay to leave inper ID for Vanc course. 02/20 Bcx+ MRSE 1/2 bottles likely contaminant. - ID c/s with recs Abx x4 weeks: Vanc 4 weeks end (02/12-03/03) => PO Linezolid 600mg BID (03/03-03/11, stopped d/t concern for contribution to nausea) => IV ceftaroline (03/12-03/16) -Concern that linezolid may be contributing to dizziness; initially trialed with food but did not improve #CLAUDIA on CKD 3a, improving Per chart review Baseline Cr ~0.9. Cr 1.22 => 2.02 iso restarting home lasix 40 BID and recent IV vanc (last dose supratherapeutic). FeNa 1.3% suggests intrinsic cause. Currently still up from baseline iso poor PO intake, requiring intermittent IV fluid repletion. - Improving with fluids, holding lasix. Continue to monitor - Can resume with lasix 40 mg daily when CLAUDIA resolves #Urinary Retention, resolved New overnight (03/12) w/ bladder scan showing 900 mL. Straight cath removal of 1.1L. Meclizine discontinued and pt w/o further retention -CTM and avoid anticholinergic agents #HTN #HLD #CAD c/b OR s/p CABG #apical HCM No indication for triple therapy AC/antiplatelet at this time. Lipid panel with LDL 37, A1c 5.4. Home HTN regimen: lisinopril 10mg. - Atorvastatin 80, Zetia, Plavix - Hold ASA given AC. - Continue to hold home lisinopril 10 mg - Home lasix 40 mg BID held in CCU. Hold now given slight bump in Cr. #R rib pain, resolved #Hip pain, resolved Several day hx, reproducible on exam. Now resolved with Lidocaine patch. - Continue with lidocaine patches #R arm fracture Fracture after ground-level fall 02/06. S/p cast with plan for outpatient follow up. C/o swelling after ortho recast while here but neurovascular intact without numbness/tingling/loss of dexterity. Xray arm wit nondisplaced arm fracture. - RUE platform weight bearing - XR 02/26 per Ortho rec to ensure no interval displacement: minimally displaced ulnar styloid process fracture. [facility]. Ortho will also see while on the floor - appreciate recs. #prior DVT Remote, unprovoked. Chronically on Eliquis. S/p DCCV. Resume Eliquis. #OA #DDD Current regimen: Voltaren gel, gabapentin 600mg QID - Lidocaine patches and APAP as needed, gabapentin 600mg BID - If breakthrough pain, can consider fentanyl patch #osteoporosis Currently on alendronate 70mg qWeekly - CTM, held inpt. Will resume outpt. #GERD Home regimen: omeprazole 20mg - PPI #anxiety/depression - Continue Zoloft Code: Full DVT Prophylaxis: Eliquis Diet: 2g Na Dispo: [facility] Mikal Barrow MD Internal Medicine PGY-2 03/19/2023 1:44 PM Cosigned by Gordon Huang MD at 03/19/2023 5:34 PM CDT Associated attestation - Gordon Huang MD - 03/19/2023 5:34 PM CDT I have seen and examined the patient on 03/19/23. I agree with the findings and plan of care as documented in the resident's/fellow's note and as discussed with the resident/fellow. Gordon Huang MD, MSCI, [facility], FICOS Director, Cardio-Oncology Fellowship Director, [facility] Co-Director, [facility] Division of Cardiology [facility] Office: [phone] Pager: [phone] * Viky Kraus, TIFFANY - 03/18/2023 11:35 AM CDT NUTRITION ASSESSMENT Nutrition Status: Patient at risk for malnutrition, but does not meet ASPEN criteria for malnutrition. REASON FOR ASSESSMENT: Follow Up Encounter Date: 03/18/23 11:35 AM Admission Date: 02/17/2023 LOS: 29 days HPI: Patient is a 77 y.o. female with a PMH of pAF, Apical variant HCM, CAD with OR in 2012 s/p CABG with LAWSON to LAD and SVG to OM, HTN, DDD,diverticulitis, vertigo, prior DVT, OA who presented as a transfer for AFib with RVR complicated by hemodynamic instability and found to have MRSA. Pt experiencedAFib again morning of 03/14. Objective Past Medical History: Diagnosis Date Acid reflux Heart murmur High cholesterol History of blood clots 1960s in leg as teenager - had phlebitis History of OR (myocardial infarction) 2012 History of vertebral fracture 2018 HTN (hypertension) IBS (irritable bowel syndrome) Vertigo Past Surgical History: Procedure Laterality Date COLON SURGERY 1992 Repair burst colon CORONARY ARTERY BYPASS GRAFT 2012 Double by-pass - [facility] FLUORO GUIDED INJECTION HIP RIGHT Right 05/16/2022 FLUORO GUIDED INJECTION HIP RIGHT Right 08/15/2022 FLUORO GUIDED INJECTION HIP RIGHT Right 12/10/[address] James ([place], [place]) TOTAL KNEE ARTHROPLASTY Right 2018 Social History Tobacco Use Smoking status: Never Passive exposure: Current Smokeless tobacco: Never Substance and Sexual Activity Drug use: Yes Types: Medical marijuana Comment: Tablets - tid Sexual activity: None Alcohol Use: Not At Risk (09/28/2020) AUDIT-C Frequency of Alcohol Consumption: Never Average Number of Drinks: Not on file Frequency of Binge Drinking: Not on file MEDICATION/LAB REVIEW: Scheduled Meds: acetaminophen, 1,000 mg, oral, TID amiodarone, 400 mg, oral, Daily apixaban, 5 mg, oral, BID atorvastatin, 80 mg, oral, Nightly calcium carbonate-vitamin D3, 1 tablet, oral, Daily clopidogreL, 75 mg, oral, Daily diclofenac sodium, 2 g, topical, TID ezetimibe, 10 mg, oral, Daily gabapentin, 200 mg, oral, BID lidocaine, 1 patch, transdermal, Daily lidocaine, 2 patch, transdermal, Daily linaCLOtide, 145 mcg, oral, Before breakfast metoprolol tartrate, 25 mg, oral, Once metoprolol XL, 25 mg, oral, Daily ondansetron, 8 mg, intravenous, BID AC (lunch, dinner) pantoprazole DR, 40 mg, oral, Daily sertraline, 50 mg, oral, Daily sodium chloride 0.9%, 5-10 mL, intra-catheter, Q12H AGUS Continuous Infusions: PRN Meds: camphor-menthoL midodrine sodium chloride 0.9% Recent Labs Lab Units 03/17/23195703/16/23194803/15/23 2140 SODIUM mmol/L 141 142 141 POTASSIUM PLASMA mmol/L 3.3 3.6 3.7 CHLORIDE mmol/L 104 106 104 CO2 mmol/L 26 25 27 BUN SERUM mg/dL 4* 5* 6 CREATININE mg/dL 1.19* 1.23* 1.42* [id number] mL/min/1.73 m2 47* 46* 38* CALCIUM mg/dL 9.0 8.6 8.7 PHOSPHORUS PLASMA mg/dL -- 2.3 -- MAGNESIUM mg/dL 1.4 1.4 1.5 Recent Labs Lab Units 03/17/23195703/16/[id number]/15/[id number]/14/[id number]/13/23202503/12/23202903/11/23 215 GLUCOSE mg/dL 83 83 83 103 93 93 82 No results found for: ALT , AST , BILIRUBIN , ALKPHOS , LIPASE Lab Results Component Value Date HGBA1C 5.8 (H) 02/18/2023 HDL 16 (L) 02/18/2023 LDLCALC 37 02/18/2023 CHOL 78 02/18/2023 TRIG 124 02/18/2023 NURSING ASSESSMENT: Last BM Date: 03/16/23 Bowel Sounds (All Quadrants): Active Emesis Assessment Emesis Color/Appearance: Clear, Undigested food Nixon Scale Score: 19 Skin Integrity: Bruising Edema: No pitting Vital Signs BP: 125/75 Temp: 36.8 ??C (98.2 ??F) Pulse: (!) 150 Resp: 20 SpO2: 100 % Intake/Output Summary (Last 24 hours) at 03/18/2023 1135 Last data filed at 03/18/2023 0940 Gross per 24 hour Intake 1250 ml Output 325 ml Net 925 ml Adult Malnutrition Scoring Tool (MST) What diet do you follow at home?: none specific Have You Recently Lost Weight Without Trying?: No Have you been eating poorly because of a decreased appetite?: No Malnutrition Screening Tool (MST) Score: 0 Anthropometrics Weight: 81.4 kg (179 lb 7.3 oz) Admission Weight : 89.1 kg Weight Change: 2.80 kg (6.17 lbs) IBW/kg (Calculated) : 54.4 kg Height: 162.6 cm (5' 4 ) Weight in (lb) to have BMI = 25: 145.3 BMI (Calculated): 30.8 Wt Readings from Last 10 Encounters: 03/18/23 81.4 kg (179 lb 7.3 oz) 01/20/23 83 kg (182 lb 15.7 oz) 01/13/23 85.7 kg (189 lb) 11/27/22 78.7 kg (173 lb 9.6 oz) 10/18/22 84.6 kg (186 lb 8 oz) 05/01/22 79.8 kg (176 lb) 05/02/21 80.2 kg (176 lb 12.8 oz) 01/30/21 79.8 kg (176 lb) 09/28/20 80.5 kg (177 lb 6.4 oz) 12/29/19 78.8 kg (173 lb 12.8 oz) ESTIMATED NEEDS: Total Kcal/kg Estimated Needs : 1632 Kcal/k. Type of Weight Used for Estimated Kcals: [place] Total Protein Estimated Needs (gm): 65.28 Protein Needs Based on g/k.2 Type of Weight Used for Estimated Protein : [place] Dietary Orders (From admission, onward) Start Ordered 03/14/23 1700 Oral Nutrition Supplements Select Supplement: Ayse GoGoPin 1.0 - Chocolate All Meals Question: Select Supplement: Answer: [employer] Farms 1.0 - Chocolate 03/14/23 1413 02/26/23 1250 Adult Diet Restricted; 2 GM Sodium Diet effective now Question Answer Comment ([facility]) Diet type Restricted Fat / Sodium Restriction: 2 GM Sodium 02/26/23 1250 Allergies: Reviewed. Pt states she has an allergy to dairy and will get sick if she consumes it. IMPRESSION: Pt complains of low Na diet, has many foods that cause stomach upset. Reports she vomited Ayse GoGoPin supplement. Declined other ONS. States she thinks she will eat better at home PO intake poor since admission, 0-25% meals per flowsheet 03/17 BUN 4 creatinine 1.19 Lytes WNL Glucose in good control ASPEN MALNUTRITION ASSESSMENT: Date of completion: 03/14 NUTRITION FOCUSED PHYSICAL EXAM: Completed. NUTRITION DIAGNOSIS: Nutrition Diagnosis 1: Inadequate oral intake Related to: Acute illness/injury, Loss of appetite Evidenced by: Patient interview, PO under 50% INTERVENTION(S): Summary: Medical food supplement, NFPE Liberalize diet per MD GOAL(S): Oral intake to meet 75% estimated nutritional needs by next assessment, Tolerance of medical food supplement by next assessment MONITORING/EVALUATION: Appetite, Supplement tolerance, Stool patterns, PO intake, Hydration status, I/O * Suki Francisco DPT - 03/18/2023 9:47 AM CDT Physical Therapy Physical Therapy Progress Note NOTE: This is a summary note of the martinez components of the treatment session. For full details, review chart for all flowsheets documented on by this physical therapy clinician on this date. Vital signs documented in vital signs flowsheet. Care plan progress documented in Care Plan Activity. For questions, please review the treatment team and contact the PT or ASSISTANT TECHNICIAN currently assigned to this patient. If a physical therapy clinician is not assigned to this patient, please call [phone]. 03/18/23 0947 PT Last Visit Session Type Treatment PT Received On 03/18/23 Safe Environment Arm band checked;Patient found in supine;Gait belt utilized for all out of bed mobility Subjective Agreeable to Therapy Subjective Comment I feel okay Family/Caregiver Present No Precautions Precautions Fall risk RUE Weight Bearing NWB Activity Tolerance Activity Tolerance Comments ISAAK: Hard Pain Assessment Pain Assessment No/denies pain Cognition Arousal/Alertness Alert;Appropriate responses to stimuli Orientation Oriented X4 (person, place, time, situation) Following Commands Follows all commands and directions without difficulty Compliance/Behavior Easy to engage Balance Balance Yes Static Sitting Balance Static Sitting-Balance Support Feet supported;No upper extremity supported Static Sitting-Sitting Surface Bed Static Sitting-Level of Assistance Close supervision Static Sitting-Comment/# of Minutes sup for safety Static Standing Balance Static Standing-Balance Support Bilateral upper extremity supported Static Standing-Standing Surface Floor Static Standing-Level of Assistance Minimum assistance Static Standing-Comment/# of Minutes Min A for balance Seated Seated-Exercise Comments Educated on LE ROM at EOB to promote blood flow and prevent orthostasis with standing Bed Mobility Bed Mobility Yes Bed Mobility 1 Bed Mobility From 1 Supine Bed Mobility Type 1 To Bed Mobility to 1 Edge of bed Level of Assistance 1 Standby Assist Bed Mobility Comments 1 SBA for safety and cues for precautions Transfers Transfer Yes Transfer 1 Transfer From 1 Sit Transfer Type 1 To and from Transfer to 1 Stand Technique 1 Sit to stand;Stand to sit Transfer Device 1 Hand held assist Transfer Level of Assistance 1 Minimum Assist Trials/Comments 1 Min A for force production Transfers 2 Transfer From 2 Bed Transfer Type 2 To Transfer to 2 Chair with arms Technique 2 Stand and step Transfer Device 2 Hand held assist Transfer Level of Assistance 2 Minimum Assist Trials/Comments 2 Min A for balance Ambulation Ambulation Yes Ambulation 1 Distance (ft) 1 180 Surface 1 Level tile Device 1 Wheeled walker;Platform attachment right Assistance 1 Contact Guard Assist Gait: Requires assist with 1 Maintaining balance Gait: Requires verbal cues to 1 Pace activity;Utilize pursed lip breathing Gait Deviations 1 Roma - decreased;Step length - decreased Ambulation Comments 1 no rest needed; CGA for balance Stairs Stairs No Other Comments Other PT Comments Pt. tolerates session well without significant dizziness. However, Per RN, HR up to 170s with ambulation. Basic Mobility - 6 Click How much difficulty does the patient have: Turning over in bed 3 How much difficulty does the patient currently have: Sitting down and standing up from a chair witharms? 3 How much difficulty does the patient have: Moving from lying on back to sitting on the side of the bed? 3 How much difficulty does the patient have: Moving to and from a bed to a chair including wheelchair? 3 How much help does the patient currently need: Walk in hospital room? 3 How much help from another person does the patient currently need: Climbing 3-5 steps with a railing? 2 Total 6 Click Score (range 6-24) 17 Score Interpretation 39.67 Safe Environment End of Therapy Session Safe Environment End of Therapy Session Patient left in chair;RN notified;Call light within reach Assessment Prognosis Good Problem List Gait deviations;Decreased strength;Decreased endurance;Impaired balance Plan Plan Continue with current plan;If this is the last note, consider this the discharge summary Recommendation/Plan PT Recommendation/Plan Inpatient Rehab Facility PT Frequency during current admission 3-5x/wk Treatment/Interventions during current admission Balance Training;Bed mobility;Gait training;Functional transfer training;Endurance training PT - Next Appointment 03/20/23 Multi-Disciplinary Problems (from Physical Therapy) Active Problems Problem: Mobility Start Date: 02/20/23 Goal Start Date Expected End Date End Date STG - Patient will ambulate 02/20/23 01/07/24 -- Goal Details: 250 ft, SBA, WW Problem: Transfers Start Date: 02/20/23 Goal Start Date Expected End Date End Date STG - Patient will perform bed mobility 02/20/23 01/07/24 -- Goal Details: IND Goal Start Date Expected End Date End Date STG - Patient will transfer sit to and from stand 02/20/23 01/07/24 -- Goal Details: SBA, WW Problem: PT Misc Start Date: 02/20/23 Goal Start Date Expected End Date End Date PT STG - Misc 1 02/20/23 01/07/24 -- Goal Details: Patient and caregivers will participate in and demonstrate understanding of therapeutic exercise and safe mobility strategies to improve independence with functional mobility. * Te Baker MD - 03/18/2023 7:18 AM CDT Cardiology Daily Progress Note Subjective Interval events -Isolated desat to 60s w/ 1.5-2 L started on O2 but now satting >95% -Continued abd pain but having BM; states Tylenol helps (but RN reports she does not take agus tylenol consistently) -Has some gaseous feelings -Tolerating jello and increasing working with OT w/o orthostatics -Denies n/v today Objective Vitals: 24hr Min/Max: Temp Min: 36.7 ??C (98.1 ??F) Max: 36.8 ??C (98.2 ??F) Pulse Min: 61 Max: 71 BP Min: 144/65 Max: 168/67 Resp Min: 17 Max: 20 SpO2 Min: 91 % Max: 98 % Most Recent : Vitals: 03/18/23 0757 BP: 168/67 Pulse: 66 Resp: 20 Temp: 36.8 ??C (98.2 ??F) SpO2: 91% I/O last 3 completed shifts: In: 1250 [P.O.:250; IV Piggyback:1000] Out: 1175 [Urine:1175] Physical Exam: General: Not in distress, appears comfortable HEENT: Normocephalic, no conjunctival pallor, no scleral icterus Cardiac: Normal rate; regular rhythm; audible S1 and S2 without appreciable murmurs, rubs, or gallops; 2+ radial pulses; no LE edema; no JVD nor hepato- jugular reflux Pulm: clear to auscultation bilaterally; no wheezes, rales, or rhonchi GI/Abd: Soft, nontender, nondistended MSK: Normal bulk and tone, no joint effusions or major deformities Skin: No rash or bruises Extremities: minimal pitting edema in BLE Neuro: AAO x 4, CN II-XII grossly intact, moves all extremities spontaneously. Notable labs: Cr improving over the past week Assessment Tiera Lobato is a 77 y.o. female with a PMH of pAF, Apical variant HCM, CAD with OR in 2012 s/p CABG with LAWSON to LAD and SVG to OM, HTN, DDD,diverticulitis, vertigo, prior DVT, OA who presents as an OSH transfer for AFib with RVR complicated by hemodynamic instability now rate controlled onoral dig / metop /amio found to have MRSA cellulitis and MRSA bacteremia with septic pulmonary emboli on Vanc. Now HDS in NSR mostly s/p DCCV with persistent n/v and abd pain preventing adequate PO intake who is pending dispo. Plan #Suprapubic abdominal pain #Nausea, stable #IBS Developed new nausea and dizziness at rest from 03/01-, managed by Zofran. Suprapubic abd pain stable but limiting PO tolerance. Etiology unclear but in pt w/ extensive abd surg history (bowel perforation in , cholecystectomy) will pursue further eval with GI and increase anti-nausea and painregimen. Will also check amyloid labs given pt w/ hx/o HCM and abd pain. Though gastritis and PUD also possible. - Zofran 8 mg BID AGUS for nausea and Tylenol 1000 mg TID AGUS for pain - KUB (03/11): WNL - CT A/P (03/16): no definite explanation for abd pain - 1L of LR for dehydration - continue Linaclotide for IBS - AL amyloid screening labs (03/17): K/L ratio normal - GI consult (03/17): alternate anti-emetics w/ compazine (avoiding d/t c/f urinary retention), ctn home linzess, colonoscopy outpt #Dizziness, improved #Orthostatic hypotension, improved After extensive workup (see prior progress notes) pt remains orthostatic with likely contributing factors including age, prolonged bed rest, and limited oral hydration. -bMRI (03/07) w/o acute findings -neuro c/s: Meclizine 25 mg q6 PRN -> d/c 03/12 d/t concerns for urinary retention which has since resolved - AM cortisol (03/12) w/o signs of adrenal insufficiency - Midodrine 5 mg PRN before physical therapy to reduce orthostasis but has not been used #pAF with RVR s/p DCCV Home regimen: metop 50 mg daily. Previously on sotalol 80 mg (15 d supply last dispensed 02/07/23). TTE 02/20 read LVEF 55-60, no valvular dz. S/p DCCV. NSR except reverting back to Afib w RVR on 03/04 iso holding metop due to n/v. Metop briefly started but then discontinued iso severe n/v/dizziness/vertigo. Was in NSR with Amio 200 BID for many days, w/ recent afib w/ RVR working with PT that responded to metop PO and IV. - Continue with home Eliquis - Continue amio 400 PO daily with potential to increase to 400 BID if needed - Continue metoprolol 25 ER daily and metop tartrate 25 before PT to prevent afib (hold for HR <55) - Dose reduce Gabapentin to 200 BID on 03/06 (~75% reduction w/ eGFR 25). - Scheduled to see PILO Ravi at Dr. Stafford's office on Mar 20 #Anemia of Chronic disease Baseline 9-10. 8.0 on day of admission then mostly in 7s therafter. Fe 24, Ferritin 299, TIBC 192, Tsat 13% suggestive of anemia of chronic disease. B12 1886, folate 15.3. Hgb dropped to 6.9 on 03/15 -> 1 unit pRBC -> 8.5 post-transfusion; no active signs of bleeding. If Hgb stable in coming days can reduce lab draws for pt w/ ~1 mo hospital stay now awaiting placement - Post-transfusion Hgb stable, CTM w/ daily CBCs #MRSA cellulitis #MRSA bacteremia #Septic pulmonary emboli Positive cultures 02/14, but started empirically on vanc 02/12. In house read of OSH CT CAP with septic emboli in lungs, confirmed on repeat this admission. 02/20 Bcx+ within 24 hours MRSE 1/2 bottles, likely contaminant. TTE 02/20 read LVEF 55- 60, no valvular dz or vegetations. 02/20 LUE ultrasound with cellulitis with underlying myositis and small non-drainable fluid collection, verified by CT LUE without osteomyelitis. 02/20 ACCS c/s rec nonoperative. L PICC placed after initial + Bcx, okay to leave inper ID for Vanc course. 02/20 Bcx+ MRSE 1/2 bottles likely contaminant. - ID c/s with recs Abx x4 weeks: Vanc 4 weeks end (02/12-03/03) => PO Linezolid 600mg BID (03/03-03/11, stopped d/t concern for contribution to nausea) => IV ceftaroline (03/12-03/16) -Concern that linezolid may be contributing to dizziness; initially trialed with food but did not improve #CLAUDIA on CKD 3a, improving Per chart review Baseline Cr ~0.9. Cr 1.22 => 2.02 iso restarting home lasix 40 BID and recent IV vanc (last dose supratherapeutic). FeNa 1.3% suggests intrinsic cause. Currently still up from baseline iso poor PO intake, requiring intermittent IV fluid repletion. - Improving with fluids, holding lasix. Continue to monitor - Can resume with lasix 40 mg daily when CLAUDIA resolves #Urinary Retention, resolved New overnight (03/12) w/ bladder scan showing 900 mL. Straight cath removal of 1.1L. Meclizine discontinued and pt w/o further retention -CTM and avoid anticholinergic agents #HTN #HLD #CAD c/b OR s/p CABG #apical HCM No indication for triple therapy AC/antiplatelet at this time. Lipid panel with LDL 37, A1c 5.4. Home HTN regimen: lisinopril 10mg. - Atorvastatin 80, Zetia, Plavix - Hold ASA given AC. - Continue to hold home lisinopril 10 mg - Home lasix 40 mg BID held in CCU. Hold now given slight bump in Cr. #R rib pain, resolved #Hip pain, resolved Several day hx, reproducible on exam. Now resolved with Lidocaine patch. - Continue with lidocaine patches #R arm fracture Fracture after ground-level fall 02/06. S/p cast with plan for outpatient follow up. C/o swelling after ortho recast while here but neurovascular intact without numbness/tingling/loss of dexterity. Xray arm wit nondisplaced arm fracture. - RUE platform weight bearing - XR 02/26 per Ortho rec to ensure no interval displacement: minimally displaced ulnar styloid process fracture. [facility]. Ortho will also see while on the floor - appreciate recs. #prior DVT Remote, unprovoked. Chronically on Eliquis. S/p DCCV. Resume Eliquis. #OA #DDD Current regimen: Voltaren gel, gabapentin 600mg QID - Lidocaine patches and APAP as needed, gabapentin 600mg BID - If breakthrough pain, can consider fentanyl patch #osteoporosis Currently on alendronate 70mg qWeekly - CTM, held inpt. Will resume outpt. #GERD Home regimen: omeprazole 20mg - PPI #anxiety/depression - Continue Zoloft Code: Full DVT Prophylaxis: Eliquis Diet: 2g Na Dispo: [facility] tomorrow Te Baker MD PhD Internal Medicine PGY-1 03/18/2023 9:31 AM Cosigned by Gordon Huang MD at 03/18/2023 5:05 PM CDT Associated attestation - Gordon Huang MD - 03/18/2023 5:05 PM CDT I have seen and examined the patient on 03/18/23. I agree with the findings and plan of care as documented in the resident's/fellow's note and as discussed with the resident/fellow. Gordon Huang MD, MSCI, FACC, FICOS Director, Cardio-Oncology Fellowship Director, [facility] Co-Director, [facility] Division of Cardiology [facility] Office: [phone] Pager: [phone] * Archie Ann OT - 03/17/2023 2:13 PM CDT Occupational Therapy Progress Note NOTE: This is a summary note of the martinez components of the treatment session. For full details, review chart for all flowsheets documented on by this occupational therapy clinician on this date. Vitalsigns documented in vital signs flowsheet. Care plan progress documented in Care Plan Activity. For questions, please review the treatment team and contact the occupational therapist currently assigned to this patient. If an occupational therapist is not assigned to this patient, please call [phone]. 03/17/23 1413 General Session Type Treatment OT Received On 03/17/23 Safe Environment Arm band checked;Patient found in supine;Gait belt utilized for all out of bed mobility Subjective Agreeable to Therapy Family/Caregiver Present No Current Functional Status OT Functional Mobility Functional mobility NT 2/2 dizziness. Vital signs WNL. Precautions Precautions Fall risk Weight Bearing Restrictions Yes RUE Weight Bearing NWB Precaution Handout Issued No Precaution Comments Verbally reviewed precautions with patient prior to mobility. Patient demonstrated adherence to precautions throughout session. Pain Assessment Pain Assessment No/denies pain Pain Score 0 - No pain Balance Balance Yes Static Sitting Balance Static Sitting-Balance Support Unilateral upper extremity supported;Feet supported (unilateral UE supported on bed) Static Sitting-Sitting Surface Bed Static Sitting-Level of Assistance Close supervision Static Sitting-Comment/# of Minutes Ensure safety and balance Dynamic Sitting Balance Dynamic Sitting-Balance Support Unilateral upper extremity supported;Feet supported (unilateral UE supported on bed) Dynamic Sitting-Balance Lateral lean;Forward lean;Reaching for objects Dynamic Sitting-Sitting Surface Bed Dynamic Sitting-Level of Assistance Close supervision Dynamic Sitting-Comments Ensure safety and balance Static Standing Balance Static Standing-Balance Support Left upper extremity supported (on bed rail) Static Standing-Standing Surface Floor Static Standing-Level of Assistance Contact guard Static Standing-Comment/# of Minutes Ensure safety and balance Dynamic Standing Balance Dynamic Standing-Balance Support Left upper extremity supported (on therapist) Dynamic Standing-Balance Lateral lean;Forward lean;Reaching for objects Dynamic Standing-Standing Surface Floor Dynamic Standing-Level of Assistance Minimum assistance ADL ADLS (WDL) X Grooming Grooming: Where assessed Chair Grooming: Level of assistance Moderate Assist Grooming: Assistance with Safety;Other (Comment) (balance) LE Dressing LE Dressing: Where assessed Chair LE Dressing: Level of assistance Moderate Assist LE Dressing: Assistance with Don/doff R sock;Thread RLE into pants;Pull up over hips;Safety;Other (Comment) (balance) Bed Mobility Bed Mobility Yes Bed Mobility 1 Bed Mobility From 1 Supine Bed Mobility Type 1 To Bed Mobility to 1 Edge of bed Level of Assistance 1 Minimum Assist Bed Mobility Comments 1 Trunk elevation Transfers Transfer Yes Transfer 1 Transfer From 1 Sit Transfer Type 1 To and from Transfer to 1 Stand Technique 1 Sit to stand;Stand to sit Transfer Device 1 Hand held assist Transfer Level of Assistance 1 Minimum Assist Trials/Comments 1 Force production and balance Toilet Transfers Toilet Transfer From Bed Toilet Transfer Type To Toilet Transfer to (Chair sim) Toilet Transfer Technique (stand and step) Toilet Transfer: Equipment Hand hold Toilet Transfers Minimal assistance Toilet Transfers Comments Force production and balance Cognition Arousal/Alertness Alert;Appropriate responses to stimuli Attention Span Appears intact Current communication Appears Intact Orientation Oriented X4 (person, place, time, situation) Following Commands Follows all commands and directions without difficulty Safety Judgment Good awareness of safety precautions Awareness of Errors Assistance required to identify errors made Insight Decreased awareness of deficits Problem Solving Assistance required to identify errors made Compliance/Behavior Easy to engage Perseveration Not present Activity Tolerance Activity Tolerance Comments isaak: medium, LBD Other Comments Comments Session limited this date due to dizziness. Vitals taken in supine and sitting and all were WNL. Once dizziness resolved at EOB we transfered to the chair but in standing patient became dizzy with vitals WNL. Daily Activity - 6 Clicks Putting on and taking off regular lower body clothing 2 Bathing 2 Toileting 2 Putting on and taking off upper body clothing 3 Personal Grooming 2 Eating Meals 3 Total Score (range 6-24) 14 Score Interpretation 33.39 Safe Environment End of Therapy Session Safe Environment End of Therapy Session Patient left in recliner;Call light within reach;Overbed table within reach Assessment Problem List Decreased safe judgment during ADL;Decreased endurance;Decreased balance;Decreased functional mobility;Decreased ADL independence;Decreased IADL independence Barriers to Discharge Current Mobility Status Barrier Comments Fall risk Plan Plan Continue with current plan;If this is the last note, consider this the discharge summary Recommendation/Plan OT Recommendation Inpatient Rehab Facility Patient at high risk for Falls;Readmission;Injury due to decreased ability to care for self;Injury due to reduced functional status;Injury due to balance deficits;Injury at home as patient has not returned to prior level of function Recommend Inpatient Rehab/Acute Rehab due to Ability to actively participate in intensive therapy 3hours/day, 5 days/week or 900 minutes per week;Highly motivated to participate in therapy;Not at baseline due to impaired ability to complete ADLs;Impaired ability to complete functional mobility;Likely to return to the community at discharge with support system in place;Requires greater than 25% physical assistance with most mobility tasks;Requires greater than 25% physical assistance with most ADL tasks;Requires multiple therapy disciplines to address functional deficits OT Frequency during current admission 3-5x/wk Treatment/Interventions during current admission ADL/IADL retraining;Balance Training;Bed mobility;Compensatory technique education;Endurance training;Functional activity;Functional mobility training;Functional transfer training;Strengthening;Therapeutic activity;Therapeutic exercise;Transfer traini ng Progress during current admission Slow progress, medical status limitations OT - Next Appointment 03/19/23 Multi-Disciplinary Problems (from Occupational Therapy) Active Problems Problem: Dressings Lower Extremities Start Date: 02/24/23 Goal Start Date Expected End Date End Date STG - Patient to complete lower body dressing 02/24/23 01/07/24 -- Goal Details: With supervision Problem: Dressing Upper Extremities Start Date: 02/24/23 Goal Start Date Expected End Date End Date STG - Patient will dress upper body 02/24/23 01/07/24 -- Goal Details: With supervision Problem: Grooming Start Date: 02/24/23 Goal Start Date Expected End Date End Date STG - Patient will complete grooming 02/24/23 01/07/24 -- Goal Details: in standing at bathroom sink with supervision Problem: Toileting Start Date: 02/24/23 Goal Start Date Expected End Date End Date STG - Patient will complete toileting tasks with 02/24/23 01/07/24 -- Goal Details: supervision Problem: Transfers Start Date: 02/24/23 Goal Start Date Expected End Date End Date STG - Patient will perform toilet transfer 02/24/23 01/07/24 -- Goal Details: to toilet in bathroom with supervision Problem: OT Misc Start Date: 02/24/23 Goal Start Date Expected End Date End Date OT LTG - Misc 1 02/24/23 01/07/24 -- Goal Details: Pt will complete ADLs with independence. * Storm Bach - 03/17/2023 1:24 PM CDT Spiritual Care Note Stock Workerashley Bach [phone] 03/17/23 1300 Time Spent Start Time 1250 Stop Time 1300 Time Calculation (min) 10 min Patient Spiritual Assessment Spirituality Assessed Focus of Care Clinical Encounter Type Visited With Patient Response Type Routine visit Routine Visit Follow-up Reason for visit Support;Anxiety Outcomes and Progress Preserve dignity and respect Achieved Demonstrating care and respect Achieved Establish rapport and connectedness Achieved Lessen anxiety Achieved Interventions Interventions Active listening;Offer emotional support * Te Baker MD - 03/17/2023 8:15 AM CDT Cardiology Daily Progress Note Subjective Interval events -NAEON -Still with PO intolerance and inability to consistently stay hydrated -Stable suprapubic abdominal pain that the pt has not taken medication for, only antiemetics -Not able to drink much water despite having preferred bottle water Objective Vitals: 24hr Min/Max: Temp Min: 36.7 ??C (98.1 ??F) Max: 37.1 ??C (98.8 ??F) Pulse Min: 62 Max: 91 BP Min: 132/51 Max: 155/61 Resp Min: 18 Max: 20 SpO2 Min: 91 % Max: 95 % Most Recent : Vitals: 03/17/23 0850 BP: 143/57 Pulse: 65 Resp: 20 Temp: 36.7 ??C (98.1 ??F) SpO2: 95% I/O last 3 completed shifts: In: 1588.5 [P.O.:210; Blood:328.5; IV Piggyback:1050] Out: 1700 [Urine:1700] Physical Exam: General: Not in distress, appears comfortable HEENT: Normocephalic, no conjunctival pallor, no scleral icterus Cardiac: Normal rate; regular rhythm; audible S1 and S2 without appreciable murmurs, rubs, or gallops; 2+ radial pulses; no LE edema; no JVD nor hepato- jugular reflux Pulm: clear to auscultation bilaterally; no wheezes, rales, or rhonchi GI/Abd: Soft, nontender, nondistended MSK: Normal bulk and tone, no joint effusions or major deformities Skin: No rash or bruises Extremities: minimal pitting edema in BLE Neuro: AAO x 4, CN II-XII grossly intact, moves all extremities spontaneously. Notable labs: Cr improving over the past week Assessment Tiera Lobato is a 77 y.o. female with a PMH of pAF, Apical variant HCM, CAD with OR in 2013 s/p CABG with LAWSON to LAD and SVG to OM, HTN, DDD,diverticulitis, vertigo, prior DVT, OA who presents as an OSH transfer for AFib with RVR complicated by hemodynamic instability now rate controlled onoral dig / metop /amio found to have MRSA cellulitis and MRSA bacteremia with septic pulmonary emboli on Vanc. Now HDS in NSR mostly s/p DCCV with persistent n/v and abd pain preventing adequate PO intake who is pending dispo. Plan #Suprapubic abdominal pain #Nausea, stable #IBS Developed new nausea and dizziness at rest from 03/01-, managed by Zofran. Suprapubic abd pain stable but limiting PO tolerance. Etiology unclear but in pt w/ extensive abd surg history (bowel perforation in , cholecystectomy) will pursue further eval with GI and increase anti-nausea and painregimen. Will also check amyloid labs given pt w/ hx/o HCM and abd pain. Though gastritis and PUD also possible. - Zofran 8 mg BID AGUS for nausea and Tylenol 650 mg q6h AGUS for pain - KUB (03/11): WNL - CT A/P (03/16): no definite explanation for abd pain - 1L of LR for dehydration - continue Linaclotide for IBS - AL amyloid screening labs (03/17) - GI consult (03/17) #Dizziness, Stable #Orthostatic hypotension, stable After extensive workup (see prior progress notes) pt remains orthostatic with likely contributing factors including age, prolonged bed rest, and limited oral hydration. -bMRI (03/07) w/o acute findings -neuro c/s: Meclizine 25 mg q6 PRN -> d/c 03/12 d/t concerns for urinary retention which has since resolved - AM cortisol (03/12) w/o signs of adrenal insufficiency - Midodrine 5 mg PRN before physical therapy to reduce orthostasis #pAF with RVR s/p DCCV Home regimen: metop 50 mg daily. Previously on sotalol 80 mg (15 d supply last dispensed 02/07/23). TTE 02/20 read LVEF 55-60, no valvular dz. S/p DCCV. NSR except reverting back to Afib w RVR on 03/04 iso holding metop due to n/v. Metop briefly started but then discontinued iso severe n/v/dizziness/vertigo. Was in NSR with Amio 200 BID for many days, w/ recent afib w/ RVR working with PT that responded to metop PO and IV. - Continue with home Eliquis - Continue amio 400 PO daily with potential to increase to 400 BID if needed - Continue metoprolol 25 ER - Dose reduce Gabapentin to 200 BID on 03/06 (~75% reduction w/ eGFR 25). - Scheduled to see KNIFE GLAZER Harpreet Ravi at Dr. Stafford's office on Mar 20 #Anemia of Chronic disease Baseline 9-10. 8.0 on day of admission then mostly in 7s therafter. Fe 24, Ferritin 299, TIBC 192, Tsat 13% suggestive of anemia of chronic disease. B12 1886, folate 15.3. Hgb dropped to 6.9 on 03/15 -> 1 unit pRBC -> 8.5 post-transfusion; no active signs of bleeding. If Hgb stable in coming days can reduce lab draws for pt w/ ~1 mo hospital stay now awaiting placement - Post-transfusion Hgb stable, CTM w/ daily CBCs #MRSA cellulitis #MRSA bacteremia #Septic pulmonary emboli Positive cultures 02/14, but started empirically on vanc 02/12. In house read of OSH CT CAP with septic emboli in lungs, confirmed on repeat this admission. 02/20 Bcx+ within 24 hours MRSE 1/2 bottles, likely contaminant. TTE 02/20 read LVEF 55- 60, no valvular dz or vegetations. 02/20 LUE ultrasound with cellulitis with underlying myositis and small non-drainable fluid collection, verified by CT LUE without osteomyelitis. 02/20 ACCS c/s rec nonoperative. L PICC placed after initial + Bcx, okay to leave inper ID for Vanc course. 02/20 Bcx+ MRSE 1/2 bottles likely contaminant. - ID c/s with recs Abx x4 weeks: Vanc 4 weeks end (02/12-03/03) => PO Linezolid 600mg BID (03/03-03/11, stopped d/t concern for contribution to nausea) => IV ceftaroline (03/12-03/16) -Concern that linezolid may be contributing to dizziness; initially trialed with food but did not improve #CLAUDIA on CKD 3a, improving Per chart review Baseline Cr ~0.9. Cr 1.22 => 2.02 iso restarting home lasix 40 BID and recent IV vanc (last dose supratherapeutic). FeNa 1.3% suggests intrinsic cause. Currently still up from baseline iso poor PO intake, requiring intermittent IV fluid repletion. - Improving with fluids, holding lasix. Continue to monitor - Can resume with lasix 40 mg daily when CLAUDIA resolves #Urinary Retention, resolved New overnight (03/12) w/ bladder scan showing 900 mL. Straight cath removal of 1.1L. Meclizine discontinued and pt w/o further retention -CTM and avoid anticholinergic agents #HTN #HLD #CAD c/b OR s/p CABG #apical HCM No indication for triple therapy AC/antiplatelet at this time. Lipid panel with LDL 37, A1c 5.4. Home HTN regimen: lisinopril 10mg. - Atorvastatin 80, Zetia, Plavix - Hold ASA given AC. - Continue to hold home lisinopril 10 mg - Home lasix 40 mg BID held in CCU. Hold now given slight bump in Cr. #R rib pain, resolved #Hip pain, resolved Several day hx, reproducible on exam. Now resolved with Lidocaine patch. - Continue with lidocaine patches #R arm fracture Fracture after ground-level fall 02/06. S/p cast with plan for outpatient follow up. C/o swelling after ortho recast while here but neurovascular intact without numbness/tingling/loss of dexterity. Xray arm wit nondisplaced arm fracture. - RUE platform weight bearing - XR 02/26 per Ortho rec to ensure no interval displacement: minimally displaced ulnar styloid process fracture. [facility]. Ortho will also see while on the floor - appreciate recs. #prior DVT Remote, unprovoked. Chronically on Eliquis. S/p DCCV. Resume Eliquis. #OA #DDD Current regimen: Voltaren gel, gabapentin 600mg QID - Lidocaine patches and APAP as needed, gabapentin 600mg BID - If breakthrough pain, can consider fentanyl patch #osteoporosis Currently on alendronate 70mg qWeekly - CTM, held inpt. Will resume outpt. #GERD Home regimen: omeprazole 20mg - PPI #anxiety/depression - Continue Zoloft Code: Full DVT Prophylaxis: Eliquis Diet: 2g Na Dispo: Possible SNF Te Baker MD PhD Internal Medicine PGY-1 03/17/2023 10:43 AM Cosigned by Gordon Huang MD at 03/17/2023 3:01 PM CDT Associated attestation - Gordon Huang MD - 03/17/2023 3:01 PM CDT I have seen and examined the patient on 03/17/23. I agree with the findings and plan of care as documented in the resident's/fellow's note and as discussed with the resident/fellow. Gordon Huang MD, MSCI, FACC, FICOS Director, Cardio-Oncology Fellowship Director, [facility] Co-Director, [facility] Division of Cardiology [facility] Office: [phone] Pager: [phone] * Te Baker MD - 03/16/2023 6:53 AM CDT Cardiology Daily Progress Note Subjective Interval events -Rec'd 1u pRBC o/n for hgb of 6.9 -> 8.5; denies any new signs of external bleeding or hemoptysis, melena, or hematochezia -Pt reports intermittent abd pain that makes her uninterested in eating -Now has preferred bottled water in room to increase likelihood of hydrating -W/o diarrhea and having regular BM -Reports limited food intake Objective Vitals: 24hr Min/Max: Temp Min: 36.5 ??C (97.7 ??F) Max: 37.3 ??C (99.1 ??F) Pulse Min: 59 Max: 69 BP Min: 134/56 Max: 166/73 Resp Min: 16 Max: 18 SpO2 Min: 95 % Max: 98 % Most Recent : Vitals: 03/16/23 0523 BP: 146/55 Pulse: 59 Resp: 16 Temp: 36.8 ??C (98.2 ??F) SpO2: 97% I/O last 3 completed shifts: In: 1084 [P.O.:1044; IV Piggyback:40] Out: 1250 [Urine:1250] Physical Exam: General: Not in distress, appears comfortable HEENT: Normocephalic, no conjunctival pallor, no scleral icterus Cardiac: Normal rate; regular rhythm; audible S1 and S2 without appreciable murmurs, rubs, or gallops; 2+ radial pulses; no LE edema; no JVD nor hepato- jugular reflux Pulm: clear to auscultation bilaterally; no wheezes, rales, or rhonchi GI/Abd: Soft, nontender, nondistended MSK: Normal bulk and tone, no joint effusions or major deformities Skin: No rash or bruises Extremities: minimal pitting edema in BLE Neuro: AAO x 4, CN II-XII grossly intact, moves all extremities spontaneously. Notable labs: Cr stable around 1.8 for > 1 week but now downtrending w/ latest at 1.62 Assessment Tiera Lobato is a 77 y.o. female with a PMH of pAF, Apical variant HCM, CAD with OR in 2012 s/p CABG with LAWSON to LAD and SVG to OM, HTN, DDD,diverticulitis, vertigo, prior DVT, OA who presents as an OSH transfer for AFib with RVR complicated by hemodynamic instability now rate controlled onoral dig / metop /amio found to have MRSA cellulitis and MRSA bacteremia with septic pulmonary emboli on Vanc. HDS in NSR mostly s/p DCCV pending dispo. Plan #pAF with RVR s/p DCCV Home regimen: metop 50 mg daily. Previously on sotalol 80 mg (15 d supply last dispensed 02/07/23). TTE 02/20 read LVEF 55-60, no valvular dz. S/p DCCV. NSR except reverting back to Afib w RVR on 03/04 iso holding metop due to n/v. Metop briefly started but then discontinued iso severe n/v/dizziness/vertigo. Was in NSR with Amio 200 BID for many days, now w/ new afib w/ RVR s/p working with PT today. - Continue with home Eliquis - Continue amio 400 PO daily with potential to increase to 400 BID if needed - Continue metoprolol 25 ER - Dose reduce Gabapentin to 200 BID on 03/06 (~75% reduction w/ eGFR 25). - Scheduled to see KNIFE GLAZER Harpreet Ravi at Dr. Stafford's office on Mar 20 #Dizziness, stable #Nausea, improved #Orthostatic hypotension, stable Developed new nausea and dizziness at rest from 03/01-, managed by Zofran. After extensive workup (see prior progress notes) pt remains orthostatic with likely contributing factors including age, prolonged bed rest, and limited oral hydration. -bMRI (03/07) w/o acute findings -neuro c/s: Meclizine 25 mg q6 PRN -> d/c 03/12 d/t concerns for urinary retention which has since resolved - AM cortisol (03/12) w/o signs of adrenal insufficiency - Discontinued Midodrine 10mg TID AC but will give 5 mg PRN before physical therapy to reduce orthostasis -Zofran prn -> BID (03/16) for nausea -Give IVF for significant orthostasis prn if pt still has limited PO intake -CT A/P (03/16) for worsening abd pain w/ extensive abd surg hx and recent negative KUB #Anemia of Chronic disease Baseline 9-10. 8.0 on day of admission then mostly in 7s therafter. Fe 24, Ferritin 299, TIBC 192, Tsat 13% suggestive of anemia of chronic disease. B12 1886, folate 15.3. Hgb dropped to 6.9 on 03/15 -> 1 unit pRBC -> 8.5 post-transfusion; no active signs of bleeding. If Hgb stable in coming days can reduce lab draws for pt w/ ~1 mo hospital stay now awaiting placement - F/u post-transfusion Hgb #MRSA cellulitis #MRSA bacteremia #Septic pulmonary emboli Positive cultures 02/14, but started empirically on vanc 02/12. In house read of OSH CT CAP with septic emboli in lungs, confirmed on repeat this admission. 02/20 Bcx+ within 24 hours MRSE 1/2 bottles, likely contaminant. TTE 02/20 read LVEF 55- 60, no valvular dz or vegetations. 02/20 LUE ultrasound with cellulitis with underlying myositis and small non-drainable fluid collection, verified by CT LUE without osteomyelitis. 02/20 ACCS c/s rec nonoperative. L PICC placed after initial + Bcx, okay to leave inper ID for Vanc course. 02/20 Bcx+ MRSE 1/2 bottles likely contaminant. - ID c/s with recs Abx x4 weeks: Vanc 4 weeks end (02/12-03/03) => PO Linezolid 600mg BID (03/03-03/11, stopped d/t concern for contribution to nausea) => IV ceftaroline (03/12-03/16) -Concern that linezolid may be contributing to dizziness; initially trialed with food but did not improve -Completing ceftaroline IV today 03/16 #CLAUDIA on CKD 3a, improving Per chart review Baseline Cr ~0.9. Cr 1.22 => 2.02 iso restarting home lasix 40 BID and recent IV vanc (last dose supratherapeutic). FeNa 1.3% suggests intrinsic cause. Currently still up from baseline iso poor PO intake, requiring intermittent IV fluid repletion. - Improving with fluids, holding lasix. Continue to monitor - Can resume with lasix 40 mg daily when CLAUDIA resolves #Urinary Retention, resolved New overnight (03/12) w/ bladder scan showing 900 mL. Straight cath removal of 1.1L. Meclizine discontinued and pt w/o further retention -CTM and avoid anticholinergic agents #HTN #HLD #CAD c/b OR s/p CABG #apical HCM No indication for triple therapy AC/antiplatelet at this time. Lipid panel with LDL 37, A1c 5.4. Home HTN regimen: lisinopril 10mg. - Atorvastatin 80, Zetia, Plavix - Hold ASA given AC. - Continue to hold home lisinopril 10 mg - Home lasix 40 mg BID held in CCU. Hold now given slight bump in Cr. #R rib pain, resolved #Hip pain, resolved Several day hx, reproducible on exam. Now resolved with Lidocaine patch. - Continue with lidocaine patches #R arm fracture Fracture after ground-level fall 02/06. S/p cast with plan for outpatient follow up. C/o swelling after ortho recast while here but neurovascular intact without numbness/tingling/loss of dexterity. Xray arm wit nondisplaced arm fracture. - RUE platform weight bearing - XR 02/26 per Ortho rec to ensure no interval displacement: minimally displaced ulnar styloid process fracture. [facility]. Ortho will also see while on the floor - appreciate recs. #IBS Current regimen: [id number] - continue Linaclotide #prior DVT Remote, unprovoked. Chronically on Eliquis. S/p DCCV. Resume Eliquis. #OA #DDD Current regimen: Voltaren gel, gabapentin 600mg QID - Lidocaine patches and APAP as needed, gabapentin 600mg BID - If breakthrough pain, can consider fentanyl patch #osteoporosis Currently on alendronate 70mg qWeekly - CTM, held inpt. Will resume outpt. #GERD Home regimen: omeprazole 20mg - PPI #anxiety/depression - Continue Zoloft Code: Full DVT Prophylaxis: Eliquis Diet: 2g Na Dispo: Possible SNF Te Baker MD PhD Internal Medicine PGY-1 03/16/2023 6:54 AM Cosigned by Benjamín Mancuso MD at 03/17/2023 3:02 PM CDT Associated attestation - Benjamín Mancuso MD - 03/17/2023 3:02 PM CDT I have seen and examined the patient on 03/16/2023. I agree with the findings and plan of care as documented in the resident's/fellow's note.. * Kyung Pena RN - 03/16/2023 5:31 AM CDT Patient transfused 1 unit of PRBC's per C protocol. Patient instructed to call for any CP, SOB, pain, chills, fever, itching, n/v. Patient vital signs as charted before, during, and post transfusion. * Mikal Barrow MD - 03/15/2023 7:58 AM CDT Cardiology Daily Progress Note Subjective Interval events -NAEON, VSS -spontaneously converted to NSR yesterday afternoon, no further episodes of afib w/ RVR -continues on ceftaroline (EOT 03/16) -encouraged PO intake Objective Vitals: 24hr Min/Max: Temp Min: 36.5 ??C (97.7 ??F) Max: 36.9 ??C (98.4 ??F) Pulse Min: 52 Max: 132 BP Min: 89/64 Max: 162/71 Resp Min: 18 Max: 18 SpO2 Min: 92 % Max: 99 % Most Recent : Vitals: 03/15/23 0755 BP: 162/71 Pulse: 64 Resp: 18 Temp: 36.5 ??C (97.7 ??F) SpO2: 98% I/O last 3 completed shifts: In: 120 [P.O.:120] Out: 700 [Urine:700] Physical Exam: General: Not in distress, appears comfortable HEENT: Normocephalic, no conjunctival pallor, no scleral icterus Cardiac: Normal rate; regular rhythm; audible S1 and S2 without appreciable murmurs, rubs, or gallops; 2+ radial pulses; no LE edema; no JVD nor hepato- jugular reflux Pulm: clear to auscultation bilaterally; no wheezes, rales, or rhonchi GI/Abd: Soft, nontender, nondistended MSK: Normal bulk and tone, no joint effusions or major deformities Skin: No rash or bruises Extremities: minimal pitting edema in BLE Neuro: AAO x 4, CN II-XII grossly intact, moves all extremities spontaneously. Notable labs: Cr stable around 1.8 for > 1 week but now downtrending w/ latest at 1.62 Assessment Tiera Lobato is a 77 y.o. female with a PMH of pAF, Apical variant HCM, CAD with OR in 2012 s/p CABG with LAWSON to LAD and SVG to OM, HTN, DDD,diverticulitis, vertigo, prior DVT, OA who presents as an OSH transfer for AFib with RVR complicated by hemodynamic instability now rate controlled onoral dig / metop /amio found to have MRSA cellulitis and MRSA bacteremia with septic pulmonary emboli on Vanc. HDS in NSR mostly s/p DCCV pending dispo. Plan #pAF with RVR s/p DCCV Home regimen: metop 50 mg daily. Previously on sotalol 80 mg (15 d supply last dispensed 02/07/23). TTE 02/20 read LVEF 55-60, no valvular dz. S/p DCCV. NSR except reverting back to Afib w RVR on 03/04 iso holding metop due to n/v. Metop briefly started but then discontinued iso severe n/v/dizziness/vertigo. Was in NSR with Amio 200 BID for many days, now w/ new afib w/ RVR s/p working with PT today. - Continue with home Eliquis - Increase amio to 400 PO daily with potential to increase to 400 BID if needed - Dose reduce Gabapentin to 200 BID on 03/06 (~75% reduction w/ eGFR 25). - Scheduled to see KNIFE GLAZER Harpreet Ravi at Dr. Stafford's office on Mar 20 #Dizziness, stable #Nausea, improved #Orthostatic hypotension, stable Developed new nausea and dizziness at rest from 03/01-, managed by Leonie. After extensive workup (see prior progress notes) pt remains orthostatic with likely contributing factors including age, prolonged bed rest, and limited oral hydration. -bMRI (03/07) w/o acute findings -neuro c/s: Meclizine 25 mg q6 PRN -> d/c 03/12 d/t concerns for urinary retention which has since resolved - AM cortisol (03/12) w/o signs of adrenal insufficiency - Discontinued Midodrine 10mg TID AC but will give 2.5 mg PRN before physical therapy to reduce orthostasis -Will give 1L fluids today and continue to promote oral rehydration #MRSA cellulitis #MRSA bacteremia #Septic pulmonary emboli Positive cultures 02/14, but started empirically on vanc 02/12. In house read of OSH CT CAP with septic emboli in lungs, confirmed on repeat this admission. 02/20 Bcx+ within 24 hours MRSE 1/2 bottles, likely contaminant. TTE 02/20 read LVEF 55- 60, no valvular dz or vegetations. 02/20 LUE ultrasound with cellulitis with underlying myositis and small non-drainable fluid collection, verified by CT LUE without osteomyelitis. 02/20 ACCS c/s rec nonoperative. L PICC placed after initial + Bcx, okay to leave inper ID for Vanc course. 02/20 Bcx+ MRSE 1/2 bottles likely contaminant. - ID c/s with recs Abx x4 weeks: Vanc 4 weeks end (02/12-03/03) => PO Linezolid 600mg BID (03/03-03/11, stopped d/t concern for contribution to nausea) => IV ceftaroline (03/12-03/16) -Concern that linezolid may be contributing to dizziness; initially trialed with food but did not improve -Will plan to continue ceftaroline IV to scheduled abx end date of 03/16 #CLAUDIA on CKD 3a, improving Per chart review Baseline Cr ~0.9. Cr 1.22 => 2.02 iso restarting home lasix 40 BID and recent IV vanc (last dose supratherapeutic). FeNa 1.3% suggests intrinsic cause. Currently still up from baseline iso poor PO intake, requiring intermittent IV fluid repletion. - Improving with fluids, holding lasix. Continue to monitor - Can resume with lasix 40 mg daily when CLAUDIA resolves #Urinary Retention, resolved New overnight (03/12) w/ bladder scan showing 900 mL. Straight cath removal of 1.1L. Meclizine discontinued and pt w/o further retention -CTM and avoid anticholinergic agents #HTN #HLD #CAD c/b OR s/p CABG #apical HCM No indication for triple therapy AC/antiplatelet at this time. Lipid panel with LDL 37, A1c 5.4. Home HTN regimen: lisinopril 10mg. - Atorvastatin 80, Zetia, Plavix - Hold ASA given AC. - Continue to hold home lisinopril 10 mg - Home lasix 40 mg BID held in CCU. Hold now given slight bump in Cr. #R rib pain, resolved #Hip pain, resolved Several day hx, reproducible on exam. Now resolved with Lidocaine patch. - Continue with lidocaine patches #R arm fracture Fracture after ground-level fall 02/06. S/p cast with plan for outpatient follow up. C/o swelling after ortho recast while here but neurovascular intact without numbness/tingling/loss of dexterity. Xray arm wit nondisplaced arm fracture. - RUE platform weight bearing - XR 02/26 per Ortho rec to ensure no interval displacement: minimally displaced ulnar styloid process fracture. [facility] up [facility]. Ortho will also see while on the floor - appreciate recs. #Anemia of Chronic disease Baseline 9-10. 8.0 on day of admission now stable at 7.4. Fe 24, Ferritin 299, TIBC 192, Tsat 13% suggestive of anemia of chronic disease. B12 1886, folate 15.3. - CTM #IBS Current regimen: [id number] - continue Linaclotide #prior DVT Remote, unprovoked. Chronically on Eliquis. S/p DCCV. Resume Eliquis. #OA #DDD Current regimen: Voltaren gel, gabapentin 600mg QID - Lidocaine patches and APAP as needed, gabapentin 600mg BID - If breakthrough pain, can consider fentanyl patch #osteoporosis Currently on alendronate 70mg qWeekly - CTM, held inpt. Will resume outpt. #GERD Home regimen: omeprazole 20mg - PPI #anxiety/depression - Continue Zoloft Code: Full DVT Prophylaxis: Eliquis Diet: 2g Na Dispo: Possible SNF Mikal Barrow MD Internal Medicine PGY-2 03/15/2023 7:59 AM Cosigned by Benjamín Mancuso MD at 03/15/2023 9:28 AM CDT Associated attestation - Benjamín Mancuso MD - 03/15/2023 9:28 AM CDT Attending Documentation I have seen and examined the patient on 03/15/23. I agree with the findings and plan of care as documented in the resident's/fellow's note. Supplementary Attestation Today, I am treating the patient for nausea/dizziness/diarhea which is in severe exacerbation, progression, or experiencing treatment side effects as evidenced by prolonged hospitalization/frequent stools/need for IVF, as described in the note. Most recent creatinine was 1.47 which was used to continue or change medication dosing The patient is being intensively monitored for drug toxicity from amio. Benjamín Mancuso MD 03/15/2023 9:25 AM * Uma Vanessa - 03/14/2023 2:10 PM CDT NUTRITION ASSESSMENT Nutrition Status: Patient at risk for malnutrition, but does not meet ASPEN criteria for malnutrition. REASON FOR ASSESSMENT: Follow Up Encounter Date: 03/14/23 2:48 PM Admission Date: 02/17/2023 LOS: 25 days HPI: Patient is a 77 y.o. female with a PMH of pAF, Apical variant HCM, CAD with OR in 2012 s/p CABG with LAWSON to LAD and SVG to OM, HTN, DDD,diverticulitis, vertigo, prior DVT, OA who presented as a transfer for AFib with RVR complicated by hemodynamic instability and found to have MRSA. Pt experiencedAFib again morning of 03/14. Objective Past Medical History: Diagnosis Date Acid reflux Heart murmur High cholesterol History of blood clots 1960s in leg as teenager - had phlebitis History of OR (myocardial infarction) 2012 History of vertebral fracture 2018 HTN (hypertension) IBS (irritable bowel syndrome) Vertigo Past Surgical History: Procedure Laterality Date COLON SURGERY 1992 Repair burst colon CORONARY ARTERY BYPASS GRAFT 2013 Double by-pass - [facility] FLUORO GUIDED INJECTION HIP RIGHT Right 05/16/2022 FLUORO GUIDED INJECTION HIP RIGHT Right 08/15/2022 FLUORO GUIDED INJECTION HIP RIGHT Right 12/10/[address] James ([place], [place]) TOTAL KNEE ARTHROPLASTY Right 2018 Social History Tobacco Use Smoking status: Never Passive exposure: Current Smokeless tobacco: Never Substance and Sexual Activity Drug use: Yes Types: Medical marijuana Comment: Tablets - tid Sexual activity: None Alcohol Use: Not At Risk (09/28/2020) AUDIT-C Frequency of Alcohol Consumption: Never Average Number of Drinks: Not on file Frequency of Binge Drinking: Not on file MEDICATION/LAB REVIEW: Scheduled Meds: amiodarone, 200 mg, oral, Daily apixaban, 5 mg, oral, BID atorvastatin, 80 mg, oral, Nightly calcium carbonate-vitamin D3, 1 tablet, oral, Daily ceftaroline, 400 mg, intravenous, Q12H AGUS clopidogreL, 75 mg, oral, Daily diclofenac sodium, 2 g, topical, TID ezetimibe, 10 mg, oral, Daily gabapentin, 200 mg, oral, BID lidocaine, 1 patch, transdermal, Daily lidocaine, 2 patch, transdermal, Daily linaCLOtide, 145 mcg, oral, Before breakfast pantoprazole DR, 40 mg, oral, Daily sertraline, 50 mg, oral, Daily sodium chloride 0.9%, 5-10 mL, intra-catheter, Q12H AGUS Continuous Infusions: PRN Meds: acetaminophen camphor-menthoL ondansetron sodium chloride 0.9% Recent Labs Lab Units 03/13/23202503/12/[id number]/11/[id number] SODIUM mmol/L 140 139 139 POTASSIUM PLASMA mmol/L 3.8 4.1 4.3 CHLORIDE mmol/L 105 103 104 CO2 mmol/L 26 27 25 BUN SERUM mg/dL 8 9 10 CREATININE mg/dL 1.62* 1.69* 1.88* [id number] mL/min/1.73 m2 33* 31* 27* CALCIUM mg/dL 8.8 9.2 9.0 MAGNESIUM mg/dL 1.7 1.8 1.9 Recent Labs Lab Units 03/13/23202503/12/[id number]/[id number]/10/23 0807 03/09/23201203/09/23 0822 GLUCOSE mg/dL 93 93 82 99 87 86 89 No results found for: ALT , AST , BILIRUBIN , ALKPHOS , LIPASE Lab Results Component Value Date HGBA1C 5.8 (H) 02/18/2023 HDL 16 (L) 02/18/2023 LDLCALC 37 02/18/2023 CHOL 78 02/18/2023 TRIG 124 02/18/2023 NURSING ASSESSMENT: Last BM Date: 03/14/23 Bowel Sounds (All Quadrants): Active Emesis Assessment Emesis Color/Appearance: Clear Nixon Scale Score: 21 Skin Integrity: Bruising, Intact Edema: No pitting Vital Signs BP: 105/75 Temp: 36.9 ??C (98.4 ??F) Pulse: 119 Resp: 18 SpO2: 92 % Intake/Output Summary (Last 24 hours) at 03/14/2023 1448 Last data filed at 03/14/2023 0800 Gross per 24 hour Intake 120 ml Output 0 ml Net 120 ml Adult Malnutrition Scoring Tool (MST) What diet do you follow at home?: none specific Have You Recently Lost Weight Without Trying?: No Have you been eating poorly because of a decreased appetite?: No Malnutrition Screening Tool (MST) Score: 0 Anthropometrics Weight: 80.5 kg (177 lb 7.5 oz) Admission Weight : 89.1 kg Weight Change: -1.00 kg (-2.20 lbs) IBW/kg (Calculated) : 54.4 kg Height: 162.6 cm (5' 4 ) Weight in (lb) to have BMI = 25: 145.3 BMI (Calculated): 30.4 Wt Readings from Last 10 Encounters: 03/14/23 80.5 kg (177 lb 7.5 oz) 01/20/23 83 kg (182 lb 15.7 oz) 01/13/23 85.7 kg (189 lb) 11/27/22 78.7 kg (173 lb 9.6 oz) 10/18/22 84.6 kg (186 lb 8 oz) 05/01/22 79.8 kg (176 lb) 05/02/21 80.2 kg (176 lb 12.8 oz) 01/30/21 79.8 kg (176 lb) 09/28/20 80.5 kg (177 lb 6.4 oz) 12/29/19 78.8 kg (173 lb 12.8 oz) ESTIMATED NEEDS: Total Kcal/kg Estimated Needs : 1632 Kcal/k. Type of Weight Used for Estimated Kcals: [place] Total Protein Estimated Needs (gm): 65.28 Protein Needs Based on g/k.2 Type of Weight Used for Estimated Protein : [place] Dietary Orders (From admission, onward) Start Ordered 03/14/23 1700 Oral Nutrition Supplements Select Supplement: GoGoPin 1.0 - Chocolate All Meals Question: Select Supplement: Answer: GoGoPin 1.0 - Chocolate 03/14/23 1413 02/26/23 1250 Adult Diet Restricted; 2 GM Sodium Diet effective now Question Answer Comment ([facility]) Diet type Restricted Fat / Sodium Restriction: 2 GM Sodium 02/26/23 1250 Allergies: Reviewed. Pt states she has an allergy to dairy and will get sick if she consumes it. IMPRESSION: Pt was alert and sitting upright. Pt stated her appetite has been bad and reports eating 1/2 or less of her meals the past few days. Pt stated she has not drank water the past week d/t vomiting up water & food last time she drank hospital water. Pt stated she has been able to consume 3-4 regular Starry sodas/day and stated that her son is bringing her bottled water today. Pt stated that she does have nausea and has been having diarrhea 4-5x/day for the past few days. LBM was today. Pt reported her UBW is 185 lb (83.9 kg) (pt 80.5 kg at time of assessment). Pt admitted to hospital on 02/17 at 89.1 kg (bed scale). NFPE did not reveal significant muscle/fat wasting. Pt indicated interest in a nutrition supplement but stated she is allergic to dairy. Order for GoGoPin 1.0 chocolate supplement put in with each meal. ASPEN MALNUTRITION ASSESSMENT: Date of completion: 03/14 NUTRITION FOCUSED PHYSICAL EXAM: Completed. Subcutaneous Fat Loss Orbital Region - Surrounding the Eye: Slightly dark circles Cheek Region - Buccal Fat: Full, round filled-out cheeks Muscle Loss [place] Region - Temporalis Muscle: Slight depression Clavicle Bone Region - Pectoralis Major, Deltoid, Trapezius Muscles: Not visible in male, visible but not prominent in female Clavicle and Acromion Bone Region - Deltoid Muscle: Rounded, curves at arm/shoulder/neck Scapular Bone Region - Trapezius, Supraspinus, Infraspinus Muscles: Bones not prominent Dorsal Hand - Interosseous Muscle: Muscle bulges, could be flat in some well nourished people Anterior Thigh and Patellar Region - Quadricep Muscle: Unable to assess bilaterally (pt requested right leg not be touched, but swelling noted in both legs) Posterior Calf Region - Gastrocnemius Muscle: Unable to assess bilaterally (pt requested right leg not be touched, but swelling noted in both legs and gastrocnemius was not well defined) Edema Edema: Slight swelling of the extremitiy (lower extremities) Slightly dark circles and slight hindu depression possibly age-related NUTRITION DIAGNOSIS: Nutrition Diagnosis 1: Inadequate oral intake Related to: Acute illness/injury, Loss of appetite Evidenced by: Patient interview, PO under 50% INTERVENTION(S): Summary: Medical food supplement, NFPE [employer] 1.0 Chocolate with each meal GOAL(S): Oral intake to meet 75% estimated nutritional needs by next assessment, Tolerance of medical food supplement by next assessment MONITORING/EVALUATION: Appetite, Supplement tolerance, Stool patterns, PO intake, Hydration status, I/O Cosigned by Jenna Soto RD at 03/14/2023 3:05 PM CDT * Mariam Reyes, PT - 03/14/2023 10:40 AM CDT Physical Therapy Physical Therapy Progress Note NOTE: This is a summary note of the martinez components of the treatment session. For full details, review chart for all flowsheets documented on by this physical therapy clinician on this date. Vital signs documented in vital signs flowsheet. Care plan progress documented in Care Plan Activity. For questions, please review the treatment team and contact the PT or ASSISTANT TECHNICIAN currently assigned to this patient. If a physical therapy clinician is not assigned to this patient, please call [phone]. 03/14/23 3609 PT Last Visit Session Type Treatment PT Received On 03/14/23 Safe Environment Arm band checked;Patient found in supine;Gait belt utilized for all out of bed mobility Subjective Agreeable to Therapy Subjective Comment I'm still a little dizzy Family/Caregiver Present No Precautions Precautions Fall risk RUE Weight Bearing NWB Precaution Comments verbally reviewed precautions for RUE Pain Assessment Pain Assessment No/denies pain Cognition Orientation Oriented X4 (person, place, time, situation) Static Sitting Balance Static Sitting-Balance Support Bilateral upper extremity supported;Feet supported Static Sitting-Sitting Surface Bed Static Sitting-Level of Assistance Contact guard Static Sitting-Comment/# of Minutes contact guard to independent depending on level of dizziness and OH Static Standing Balance Static Standing-Balance Support Left upper extremity supported Static Standing-Standing Surface Floor Static Standing-Level of Assistance Contact guard Static Standing-Comment/# of Minutes contact guard for balance Bed Mobility Bed Mobility Yes Bed Mobility 1 Bed Mobility From 1 Supine Bed Mobility Type 1 To Bed Mobility to 1 Edge of bed Level of Assistance 1 Minimum Assist Bed Mobility Comments 1 min assist for lifting the trunk into sitting. Pt lightheaded during transfers Transfers Transfer Yes Transfer 1 Transfer From 1 Sit Transfer Type 1 To and from Transfer to 1 Stand Technique 1 Sit to stand;Stand to sit Transfer Device 1 Hand held assist Transfer Level of Assistance 1 Minimum Assist Trials/Comments 1 min assist for force production and balance Ambulation Ambulation Yes Ambulation 1 Distance (ft) 1 25 Surface 1 Level tile Device 1 Hand held assist Assistance 1 Minimum Assist Gait: Requires assist with 1 Maintaining balance Gait Deviations 1 Path deviation;Turns - difficulty;Shuffling Ambulation Comments 1 Pt requried contact guard to min assist for balance during ambulation. Only ambulated in the room Stairs Stairs No Other Comments Other PT Comments Pt presents with intermittent dizziness throughout session with subsequent drop in BP. Please see vitals flowsheet for additional details Basic Mobility - 6 Click How much difficulty does the patient have: Turning over in bed 4 How much difficulty does the patient currently have: Sitting down and standing up from a chair witharms? 3 How much difficulty does the patient have: Moving from lying on back to sitting on the side of the bed? 3 How much difficulty does the patient have: Moving to and from a bed to a chair including wheelchair? 3 How much help does the patient currently need: Walk in hospital room? 3 How much help from another person does the patient currently need: Climbing 3-5 steps with a railing? 2 Total 6 Click Score (range 6-24) 18 Score Interpretation 41.05 Safe Environment End of Therapy Session Safe Environment End of Therapy Session Patient left in recliner;RN notified;Call light within reach;Overbed table within reach Assessment Prognosis Good Barriers to Discharge Current Mobility Status (decreased activity tolerance, OH) Plan Plan Continue with current plan;If this is the last note, consider this the discharge summary Recommendation/Plan Progress during current admission Progressing toward goals PT - Next Appointment 03/17/23 PT - OK to Discharge No Multi-Disciplinary Problems (from Physical Therapy) Active Problems Problem: Mobility Start Date: 02/20/23 Goal Start Date Expected End Date End Date STG - Patient will ambulate 02/20/23 01/07/24 -- Goal Details: 250 ft, SBA, WW Problem: Transfers Start Date: 02/20/23 Goal Start Date Expected End Date End Date STG - Patient will perform bed mobility 02/20/23 01/07/24 -- Goal Details: IND Goal Start Date Expected End Date End Date STG - Patient will transfer sit to and from stand 02/20/23 01/07/24 -- Goal Details: SBA, WW Problem: PT Misc Start Date: 02/20/23 Goal Start Date Expected End Date End Date PT STG - Misc 1 02/20/23 01/07/24 -- Goal Details: Patient and caregivers will participate in and demonstrate understanding of therapeutic exercise and safe mobility strategies to improve independence with functional mobility. * Te Baker MD - 03/14/2023 7:25 AM CDT Cardiology Daily Progress Note Subjective Interval events -Reports feeling well o/n -No urinary retention, and resolving diarrhea -Still dizzy with sitting up working with PT -Notes she does not like the taste of the water here and gets nauseous after just a small sip. She drinks about 4 small Starry cans per day -Would be agreeable to drinking more water if she could have bottled, which her son may be able to bring from home Objective Vitals: 24hr Min/Max: Temp Min: 36.6 ??C (97.9 ??F) Max: 36.9 ??C (98.4 ??F) Pulse Min: 63 Max: 89 BP Min: 113/53 Max: 170/63 Resp Min: 16 Max: 19 SpO2 Min: 92 % Max: 97 % Most Recent : Vitals: 03/14/23 0841 BP: 123/50 Pulse: 65 Resp: 18 Temp: 36.9 ??C (98.4 ??F) SpO2: 92% I/O last 3 completed shifts: In: 330 [P.O.:240; I.V.:40; IV Piggyback:50] Out: 915 [Urine:915] Physical Exam: General: Not in distress, appears comfortable HEENT: Normocephalic, no conjunctival pallor, no scleral icterus Cardiac: Normal rate; regular rhythm; audible S1 and S2 without appreciable murmurs, rubs, or gallops; 2+ radial pulses; no LE edema; no JVD nor hepato- jugular reflux Pulm: clear to auscultation bilaterally; no wheezes, rales, or rhonchi GI/Abd: Soft, nontender, nondistended MSK: Normal bulk and tone, no joint effusions or major deformities Skin: No rash or bruises Extremities: minimal pitting edema in BLE Neuro: AAO x 4, CN II-XII grossly intact, moves all extremities spontaneously. Notable labs: Cr stable around 1.8 for > 1 week but now downtrending w/ latest at 1.62 Assessment Tiera Lobato is a 77 y.o. female with a PMH of pAF, Apical variant HCM, CAD with OR in 2012 s/p CABG with LAWSON to LAD and SVG to OM, HTN, DDD,diverticulitis, vertigo, prior DVT, OA who presents as an OSH transfer for AFib with RVR complicated by hemodynamic instability now rate controlled onoral dig / metop /amio found to have MRSA cellulitis and MRSA bacteremia with septic pulmonary emboli on Vanc. HDS in NSR mostly s/p DCCV pending dispo. Plan #pAF with RVR s/p DCCV Home regimen: metop 50 mg daily. Previously on sotalol 80 mg (15 d supply last dispensed 02/07/23). TTE 02/20 read LVEF 55-60, no valvular dz. S/p DCCV. NSR except reverting back to Afib w RVR on 03/04 iso holding metop due to n/v. Metop briefly started but then discontinued iso severe n/v/dizziness/vertigo. Was in NSR with Amio 200 BID for many days, now w/ new afib w/ RVR s/p working with PT today. - Continue with home Eliquis - Give metop tartrate 25 mg PO x1 for new afib w/ RVR + IV metop 5 mg for afib - Increase amio to 400 PO daily with potential to increase to 400 BID if needed - Dose reduce Gabapentin to 200 BID on 03/06 (~75% reduction w/ eGFR 25). - Scheduled to see PILO Ravi at Dr. Stafford's office on Mar 20 #Dizziness, stable #Nausea, improved #Orthostatic hypotension, stable Developed new nausea and dizziness at rest from 03/01-, managed by Leonie. After extensive workup (see prior progress notes) pt remains orthostatic with likely contributing factors including age, prolonged bed rest, and limited oral hydration. -bMRI (03/07) w/o acute findings -neuro c/s: Meclizine 25 mg q6 PRN -> d/c 03/12 d/t concerns for urinary retention which has since resolved - AM cortisol (03/12) w/o signs of adrenal insufficiency - Discontinued Midodrine 10mg TID AC but will give 2.5 mg PRN before physical therapy to reduce orthostasis -Will give 1L fluids today and continue to promote oral rehydration #MRSA cellulitis #MRSA bacteremia #Septic pulmonary emboli Positive cultures 02/14, but started empirically on vanc 02/12. In house read of OSH CT CAP with septic emboli in lungs, confirmed on repeat this admission. 02/20 Bcx+ within 24 hours MRSE 1/2 bottles, likely contaminant. TTE 02/20 read LVEF 55- 60, no valvular dz or vegetations. 02/20 LUE ultrasound with cellulitis with underlying myositis and small non-drainable fluid collection, verified by CT LUE without osteomyelitis. 02/20 ACCS c/s rec nonoperative. L PICC placed after initial + Bcx, okay to leave inper ID for Vanc course. 02/20 Bcx+ MRSE 1/2 bottles likely contaminant. - ID c/s with recs Abx x4 weeks: Vanc 4 weeks end (02/12-03/03) => PO Linezolid 600mg BID (03/03-03/11, stopped d/t concern for contribution to nausea) => IV ceftaroline (03/12-03/16) -Concern that linezolid may be contributing to dizziness; initially trialed with food but did not improve -Will plan to continue ceftaroline IV to scheduled abx end date of 03/16 #CLAUDIA on CKD 3a, improving Per chart review Baseline Cr ~0.9. Cr 1.22 => 2.02 iso restarting home lasix 40 BID and recent IV vanc (last dose supratherapeutic). FeNa 1.3% suggests intrinsic cause. Currently still up from baseline iso poor PO intake, requiring intermittent IV fluid repletion. - Improving with fluids, holding lasix. Continue to monitor - Can resume with lasix 40 mg daily when CLAUDIA resolves #Urinary Retention, resolved New overnight (03/12) w/ bladder scan showing 900 mL. Straight cath removal of 1.1L. Meclizine discontinued and pt w/o further retention -CTM and avoid anticholinergic agents #HTN #HLD #CAD c/b OR s/p CABG #apical HCM No indication for triple therapy AC/antiplatelet at this time. Lipid panel with LDL 37, A1c 5.4. Home HTN regimen: lisinopril 10mg. - Atorvastatin 80, Zetia, Plavix - Hold ASA given AC. - Continue to hold home lisinopril 10 mg - Home lasix 40 mg BID held in CCU. Hold now given slight bump in Cr. #R rib pain, resolved #Hip pain, resolved Several day hx, reproducible on exam. Now resolved with Lidocaine patch. - Continue with lidocaine patches #R arm fracture Fracture after ground-level fall 02/06. S/p cast with plan for outpatient follow up. C/o swelling after ortho recast while here but neurovascular intact without numbness/tingling/loss of dexterity. Xray arm wit nondisplaced arm fracture. - RUE platform weight bearing - XR 02/26 per Ortho rec to ensure no interval displacement: minimally displaced ulnar styloid process fracture. [facility]. Ortho will also see while on the floor - appreciate recs. #Anemia of Chronic disease Baseline 9-10. 8.0 on day of admission now stable at 7.4. Fe 24, Ferritin 299, TIBC 192, Tsat 13% suggestive of anemia of chronic disease. B12 1886, folate 15.3. - CTM #IBS Current regimen: [id number] - continue Linaclotide #prior DVT Remote, unprovoked. Chronically on Eliquis. S/p DCCV. Resume Eliquis. #OA #DDD Current regimen: Voltaren gel, gabapentin 600mg QID - Lidocaine patches and APAP as needed, gabapentin 600mg BID - If breakthrough pain, can consider fentanyl patch #osteoporosis Currently on alendronate 70mg qWeekly - CTM, held inpt. Will resume outpt. #GERD Home regimen: omeprazole 20mg - PPI #anxiety/depression - Continue Zoloft Code: Full DVT Prophylaxis: Eliquis Diet: 2g Na Dispo: Possible SNF Te Baker MD PhD Internal Medicine PGY-1 03/14/2023 9:39 AM Cosigned by Benjamín Mancuso MD at 03/15/2023 9:29 AM CDT Associated attestation - Benjamín Mancuso MD - 03/15/2023 9:29 AM CDT I have seen and examined the patient on 03/14/2023. I agree with the findings and plan of care as documented in the resident's/fellow's note.. * Sami Moreau, OT - 03/13/2023 1:05 PM CDT Occupational Therapy Occupational Therapy Progress Note NOTE: This is a summary note of the martinez components of the treatment session. For full details, review chart for all flowsheets documented on by this occupational therapy clinician on this date. Vitalsigns documented in vital signs flowsheet. Care plan progress documented in Care Plan Activity. For questions, please review the treatment team and contact the occupational therapist currently assigned to this patient. If an occupational therapist is not assigned to this patient, please call [phone]. 03/13/23 2240 General Session Type Treatment OT Received On 03/13/23 Safe Environment Arm band checked;Patient found in supine Subjective Agreeable to Therapy Family/Caregiver Present No Precautions Precautions Fall risk Weight Bearing Restrictions Yes RUE Weight Bearing NWB Pain Assessment Pain Assessment No/denies pain Balance Balance Yes Dynamic Sitting Balance Dynamic Sitting-Balance Support No upper extremity supported;Feet supported Dynamic Sitting-Balance Forward lean;Reaching for objects Dynamic Sitting-Sitting Surface Bed Dynamic Sitting-Level of Assistance Close supervision Static Standing Balance Static Standing-Balance Support Bilateral upper extremity supported Static Standing-Standing Surface Floor Static Standing-Level of Assistance Minimum assistance ADL ADLS (WDL) (NT this date) Bed Mobility Bed Mobility Yes Bed Mobility 1 Bed Mobility From 1 Supine Bed Mobility Type 1 To and from Bed Mobility to 1 Rolling right;Rolling left Level of Assistance 1 Minimum Assist Bed Mobility Comments 1 Rotation of trunk Bed Mobility 2 Bed Mobility From 2 Supine Bed Mobility Type 2 To and from Bed Mobility to 2 Edge of Bed Level of Assistance 2 Moderate Assist Bed Mobility Comments 2 Elevation of trunk, scooting hips towards EOB Transfers Transfer Yes Transfer 1 Transfer From 1 Sit Transfer Type 1 To and from Transfer to 1 Stand Technique 1 Sit to stand;Stand to sit Transfer Device 1 Hand held assist Transfer Level of Assistance 1 Minimum Assist Trials/Comments 1 Force production, balance Transfers 2 Trials/Comments 2 Functional mobility NT 2/2 safety concerns. Toilet Transfers Toilet Transfers Not tested (2/2 safety concerns) Cognition Arousal/Alertness Alert;Appropriate responses to stimuli Attention Span Appears intact Orientation Oriented X4 (person, place, time, situation) Following Commands Follows all commands and directions without difficulty Safety Judgment Good awareness of safety precautions Compliance/Behavior Easy to engage Other Comments Comments Session focused on functional transfers d/t unstable BP. Pt dizzy with all positional changes, no resolving in sitting only when supine. SBP from 150 to 113 in standing. No further OOB activity performed d/t orthostatic BP. Daily Activity - 6 Clicks Putting on and taking off regular lower body clothing 2 Bathing 2 Toileting 2 Putting on and taking off upper body clothing 3 Personal Grooming 2 Eating Meals 3 Total Score (range 6-24) 14 Score Interpretation 33.39 Safe Environment End of Therapy Session Safe Environment End of Therapy Session Patient left supine in bed;RN notified;Call light within reach;Overbed table within reach Assessment Problem List Decreased endurance;Decreased balance;Decreased functional mobility;Decreased ADL independence;Decreased IADL independence Barriers to Discharge Current Mobility Status Plan Plan Continue with current plan;If this is the last note, consider this the discharge summary Recommendation/Plan OT Recommendation Inpatient Rehab Facility Patient at high risk for Falls;Readmission;Injury due to decreased ability to care for self;Injury due to reduced functional status;Injury due to balance deficits;Injury at home as patient has not returned to prior level of function;Developing impaired skin integrity Recommend Inpatient Rehab/Acute Rehab due to Requires multiple therapy disciplines to address functional deficits;Requires greater than 25% physical assistance with most ADL tasks;Requires greater than 25% physical assistance with most mobility tasks;Likely to return to the community at discharge with support system in place;Impaired ability to complete functional mobility;Not at baseline due to impaired ability to complete ADLs;Highly motivated to participate in therapy;Ability to actively participate in intensive therapy 3 hours/day, 5 days/week or 900 minutes per week OT Frequency during current admission 3-5x/wk Treatment/Interventions during current admission ADL/IADL retraining;Balance Training;Bed mobility;Endurance training;Functional activity;Functional mobility training;Functional transfer training;Therapeutic activity;Therapeutic exercise;Strengthening;Transfer training Progress during current admission Slow progress, medical status limitations OT - Next Appointment 03/17/23 Multi-Disciplinary Problems (from Occupational Therapy) Active Problems Problem: Dressings Lower Extremities Start Date: 02/24/23 Goal Start Date Expected End Date End Date STG - Patient to complete lower body dressing 02/24/23 01/07/24 -- Goal Details: With supervision Problem: Dressing Upper Extremities Start Date: 02/24/23 Goal Start Date Expected End Date End Date STG - Patient will dress upper body 02/24/23 01/07/24 -- Goal Details: With supervision Problem: Grooming Start Date: 02/24/23 Goal Start Date Expected End Date End Date STG - Patient will complete grooming 02/24/23 01/07/24 -- Goal Details: in standing at bathroom sink with supervision Problem: Toileting Start Date: 02/24/23 Goal Start Date Expected End Date End Date STG - Patient will complete toileting tasks with 02/24/23 01/07/24 -- Goal Details: supervision Problem: Transfers Start Date: 02/24/23 Goal Start Date Expected End Date End Date STG - Patient will perform toilet transfer 02/24/23 01/07/24 -- Goal Details: to toilet in bathroom with supervision Problem: OT Misc Start Date: 02/24/23 Goal Start Date Expected End Date End Date OT LTG - Misc 1 02/24/23 01/07/24 -- Goal Details: Pt will complete ADLs with independence. * Te Baker MD - 03/13/2023 7:17 AM CDT Cardiology Daily Progress Note Subjective Interval events - NAEON - Urinary retention has resolved - 2 episodes of diarrhea reported but have resolved - Denies CP, SOB, n/v -BP in normal range w/o midodrine - Tolerating ceftaroline abx w/o difficulty Objective Vitals: 24hr Min/Max: Temp Min: 36.5 ??C (97.7 ??F) Max: 36.9 ??C (98.4 ??F) Pulse Min: 62 Max: 66 BP Min: 146/54 Max: 169/54 Resp Min: 18 Max: 18 SpO2 Min: 95 % Max: 97 % Most Recent : Vitals: 03/13/23 0908 BP: 146/54 Pulse: 64 Resp: 18 Temp: 36.7 ??C (98.1 ??F) SpO2: 95% I/O last 3 completed shifts: In: 1180 [I.V.:130; IV Piggyback:1050] Out: 1405 [Urine:1405] Physical Exam: General: Not in distress, appears comfortable HEENT: Normocephalic, no conjunctival pallor, no scleral icterus Cardiac: Normal rate; regular rhythm; audible S1 and S2 without appreciable murmurs, rubs, or gallops; 2+ radial pulses; no LE edema; no JVD nor hepato- jugular reflux Pulm: clear to auscultation bilaterally; no wheezes, rales, or rhonchi GI/Abd: Soft, nontender, nondistended MSK: Normal bulk and tone, no joint effusions or major deformities Skin: No rash or bruises Extremities: minimal pitting edema in BLE Neuro: AAO x 4, CN II-XII grossly intact, moves all extremities spontaneously. Notable labs: Cr stable around 1.8 for > 1 week but now downtrending w/ latest at 1.69 Brain MRI wo contrast 03/08/2023 There is a T1 hyperintense lesion in the left frontoparietal calvarium, likely representing a small hemangioma. The superior sagittal sinus demonstrates normal venous flow. There is expansion of the subarachnoid spaces along the frontal lobes. The corpus callosum is normal in shape and signal intensity. The posterior fossa is unremarkable. The pituitary and sella are normal. The brainstem and craniocervical junction are unremarkable. There is a moderate burden of T2/FLAIR white matter hyperintensities, largely within the periventricular and subcortical white matter in a nonspecific pattern. There is moderate parenchymal volume loss. There is a chronic lacunar infarct in the right caudate. In the left inferior artis, an apparent area of DWI hyperintensity is favored to represent artifact given absence of definite correlate on other sequences and adjacent artifact. Diffusion weighted images otherwise reveal no hyperintensities to suggest acute cerebral infarction. There are foci of susceptibility in the left frontal lobe, left basal ganglia, and right caudate, likely suggestive of prior microhemorrhages. The ventricles are normal in size and position without evidence of hydrocephalus. The paranasal sinuses are normal. The visualized portions of the mastoids are unremarkable. Normal flow voids are demonstrated in the carotid arteries and basilar artery. IMPRESSION: 1. No acute intracranial abnormality. 2. Moderate global cerebral atrophy, white matter disease, chronic lacunar infarcts, and microhemorrhages suggestive of cerebral small vessel ischemic disease. Assessment Tiera Lobato is a 77 y.o. female with a PMH of pAF, Apical variant HCM, CAD with OR in 2012 s/p CABG with LAWSON to LAD and SVG to OM, HTN, DDD,diverticulitis, vertigo, prior DVT, OA who presents as an OSH transfer for AFib with RVR complicated by hemodynamic instability now rate controlled onoral dig / metop /amio found to have MRSA cellulitis and MRSA bacteremia with septic pulmonary emboli on Vanc, currently HDS in NSR mostly s/p DCCV pending dispo. Plan #pAF with RVR s/p DCCV Home regimen: metop 50 mg daily. Previously on sotalol 80 mg (15 d supply last dispensed 02/07/23). TTE 02/20 read LVEF 55-60, no valvular dz. S/p DCCV. NSR except reverting back to Afib w RVR on 03/04 iso holding metop due to n/v. Metop briefly started but then discontinued iso severe n/v/dizziness/vertigo. Currently in NSR with Amio 200 BID. - Continue with home Eliquis - Continue amio 200 PO every day - Dose reduce Gabapentin to 200 BID on 03/06 (~75% reduction w/ eGFR 25). - Scheduled to see PILO Ravi at Dr. Stafford's office on Mar 20 #Dizziness, improved #Nausea, improved #Orthostatic hypotension, improved Developed new nausea and dizziness at rest from 03/01-, managed by Zofran. HINTS exam showed unidirectional, horizontal nystagmus, positive skew test, and abnormal head impulse test, suggesting peripheral rather than central vestibulopathy which is reassuring, although pt was not in acute episode at the time and so might not be valid. Tried Amiodarone with food and at the mean time discontinued Metop, which seemed to be helping, although reverted back to Afib with RVR on 03/04 that resolved with re-initiation of Metop 25. Had n/v/dizziness/headache on 03/05 while on Amio 400 BID and Metop XL 25 with positive orthostatic hypotension. Held Metop XL 25, gave 1L fluids on 03/06 but had three moreepisodes of dizziness or vertigo and positive orthostatic hypotension. Gabapentin was also reduced on given CLAUDIA. Endorsed 15min vertigo 03/07 AM and intermittent dizziness throughout the day. Also noticed jerkiness in L leg when sitting at the edge of the bed. Neuro exam notable for clonus L > R, HINTS exam unchanged from prior, no focal neurological exams otherwise. Still has orthostatic hypotension. Amiodarone reduced from 400 BID to daily on 03/08 with no improvement in sxs. BP dropped to60/30 upon standing on 03/09 with n/v/d unchanged along with Cr increase. Brain MRI w/o (03/08) unremarkable. HINTS/Emeka unremarkable. Orthostatics positive today (03/12): 165/66 sitting and 111/69 standing; responded well to fluids - Appreciate neuro c/s: Meclizine 25 mg q6 PRN -> d/c 03/12 d/t concerns for urinary retention which has since resolved - AM cortisol (03/12) w/o signs of adrenal insufficiency - Discontinued Midodrine 10mg TID AC and patient maintaining BP appropriately - May consider ENT c/s if worsens/not improving #MRSA cellulitis #MRSA bacteremia #Septic pulmonary emboli Positive cultures 02/14, but started empirically on vanc 02/12. In house read of OSH CT CAP with septic emboli in lungs, confirmed on repeat this admission. 02/20 Bcx+ within 24 hours MRSE 1/2 bottles, likely contaminant. TTE 02/20 read LVEF 55- 60, no valvular dz or vegetations. 02/20 LUE ultrasound with cellulitis with underlying myositis and small non-drainable fluid collection, verified by CT LUE without osteomyelitis. 02/20 ACCS c/s rec nonoperative. L PICC placed after initial + Bcx, okay to leave inper ID for Vanc course. 02/20 Bcx+ MRSE 1/2 bottles likely contaminant. - ID c/s with recs Abx x4 weeks: Vanc 4 weeks end (02/12-03/03) => PO Linezolid 600mg BID (03/03-03/11, stopped d/t concern for contribution to nausea) => IV ceftaroline (03/12-03/16) -Concern that linezolid may be contributing to dizziness; initially trialed with food but did not improve -Will plan to continue ceftaroline IV for remaining 3 days (until 03/16) as pt is symptomatically stable for the first time in several days #CLAUDIA on CKD 3a, improving Per chart review Baseline Cr ~0.9. Cr 1.22 => 2.02 iso restarting home lasix 40 BID and recent IV vanc (last dose supratherapeutic). FeNa 1.3% suggests intrinsic cause. Currently still up from baseline iso poor PO intake, requiring intermittent IV fluid repletion. - Improving with fluids, holding lasix. Continue to monitor - Can resume with lasix 40mg daily when CLAUDIA resolves #Urinary Retention, resolved New overnight (03/12) w/ bladder scan showing 900 mL. Straight cath removal of 1.1L. Meclizine discontinued and pt w/o further retention -CTM and avoid anticholinergic agents #HTN #HLD #CAD c/b OR s/p CABG #apical HCM No indication for triple therapy AC/antiplatelet at this time. Lipid panel with LDL 37, A1c 5.4. Home HTN regimen: lisinopril 10mg. - Atorvastatin 80, Zetia, Plavix - Hold ASA given AC. - Continue to hold home lisinopril 10 mg - Home lasix 40 mg BID held in CCU. Hold now given slight bump in Cr. #R rib pain, resolved #Hip pain, resolved Several day hx, reproducible on exam. Now resolved with Lidocaine patch. - Continue with lidocaine patches #R arm fracture Fracture after ground-level fall 8/24. S/p cast with plan for outpatient follow up. C/o swelling after ortho recast while here but neurovascular intact without numbness/tingling/loss of dexterity. Xray arm wit nondisplaced arm fracture. - RUE platform weight bearing - XR 02/26 per Ortho rec to ensure no interval displacement: minimally displaced ulnar styloid process fracture. [facility]. Ortho will also see while on the floor - appreciate recs. #Anemia of Chronic disease Baseline 9-10. 8.0 on day of admission now stable at 7.4. Fe 24, Ferritin 299, TIBC 192, Tsat 13% suggestive of anemia of chronic disease. B12 1886, folate 15.3. - CTM #IBS Current regimen: [id number] - continue Linaclotide #prior DVT Remote, unprovoked. Chronically on Eliquis. S/p DCCV. Resume Eliquis. #OA #DDD Current regimen: Voltaren gel, gabapentin 600mg QID - Lidocaine patches and APAP as needed, gabapentin 600mg BID - If breakthrough pain, can consider fentanyl patch #osteoporosis Currently on alendronate 70mg qWeekly - CTM, held inpt. Will resume outpt. #GERD Home regimen: omeprazole 20mg - PPI #anxiety/depression - Continue Zoloft Code: Full DVT Prophylaxis: Eliquis Diet: 2g Na Dispo: Possible SNF Te Baker MD PhD Internal Medicine PGY-1 03/13/2023 9:47 AM Cosigned by Benjamín Mancuso MD at 03/13/2023 1:31 PM CDT Associated attestation - Benjamín Mancuso MD - 03/13/2023 1:31 PM CDT I have seen and examined the patient on 03/13/23. I agree with the findings and plan of care as documented in the resident's/fellow's note.. * Ema Leyva RP - 03/12/2023 2:47 PM CDT Antimicrobial Stewardship Review ASP review-restricted antimicrobial(s): Ceftaroline A member of the [facility] antimicrobial stewardship program has reviewed the patient's chart including the above [id number] antimicrobial(s). Criteria for continued use has been met. For questions, contact: Ema Leyva PharmD Clinical consideration should be performed prior to any antimicrobial modifications. These recommendations do not represent a formal Infectious Diseases consult. * Te Baker MD - 03/12/2023 8:52 AM CDT Cardiology Daily Progress Note Subjective Interval events - Overnight pt was complained of urge to urinate but unable to; bladder scan showed 900 mL -> straight cath and 1.1 L removed and meclizine held and UA negative -Pt w/o complaints this AM; no subjective weakness, paresthesia, nausea though she said this usually begin after getting up for the day -Was able to take PO meds yesterday later in the day Objective Vitals: 24hr Min/Max: Temp Min: 36.7 ??C (98.1 ??F) Max: 37.1 ??C (98.8 ??F) Pulse Min: 55 Max: 81 BP Min: 99/50 Max: 163/73 Resp Min: 16 Max: 18 SpO2 Min: 92 % Max: 97 % Most Recent : Vitals: 03/12/23 0028 BP: 139/63 Pulse: 61 Resp: 18 Temp: 36.8 ??C (98.2 ??F) SpO2: 92% I/O last 3 completed shifts: In: 980 [P.O.:150; I.V.:280; IV Piggyback:550] Out: 1590 [Urine:1590] Physical Exam: General: Not in distress, appears comfortable HEENT: Normocephalic, no conjunctival pallor, no scleral icterus Cardiac: Normal rate; regular rhythm; audible S1 and S2 without appreciable murmurs, rubs, or gallops; 2+ radial pulses; no LE edema; no JVD nor hepato- jugular reflux Pulm: clear to auscultation bilaterally; no wheezes, rales, or rhonchi GI/Abd: Soft, nontender, nondistended MSK: Normal bulk and tone, no joint effusions or major deformities Skin: No rash or bruises Extremities: minimal pitting edema in BLE Neuro: AAO x 4, CN II-XII grossly intact, moves all extremities spontaneously. Notable labs: Cr stable around 1.8 for > 1 week but elevated from previous bl of approx 1.0 Brain MRI wo contrast 03/08/2023 There is a T1 hyperintense lesion in the left frontoparietal calvarium, likely representing a small hemangioma. The superior sagittal sinus demonstrates normal venous flow. There is expansion of the subarachnoid spaces along the frontal lobes. The corpus callosum is normal in shape and signal intensity. The posterior fossa is unremarkable. The pituitary and sella are normal. The brainstem and craniocervical junction are unremarkable. There is a moderate burden of T2/FLAIR white matter hyperintensities, largely within the periventricular and subcortical white matter in a nonspecific pattern. There is moderate parenchymal volume loss. There is a chronic lacunar infarct in the right caudate. In the left inferior artis, an apparent area of DWI hyperintensity is favored to represent artifact given absence of definite correlate on other sequences and adjacent artifact. Diffusion weighted images otherwise reveal no hyperintensities to suggest acute cerebral infarction. There are foci of susceptibility in the left frontal lobe, left basal ganglia, and right caudate, likely suggestive of prior microhemorrhages. The ventricles are normal in size and position without evidence of hydrocephalus. The paranasal sinuses are normal. The visualized portions of the mastoids are unremarkable. Normal flow voids are demonstrated in the carotid arteries and basilar artery. IMPRESSION: 1. No acute intracranial abnormality. 2. Moderate global cerebral atrophy, white matter disease, chronic lacunar infarcts, and microhemorrhages suggestive of cerebral small vessel ischemic disease. Assessment Tiera Lobato is a 77 y.o. female with a PMH of pAF, Apical variant HCM, CAD with OR in 2013 s/p CABG with LAWSON to LAD and SVG to OM, HTN, DDD,diverticulitis, vertigo, prior DVT, OA who presents as an OSH transfer for AFib with RVR complicated by hemodynamic instability now rate controlled onoral dig / metop /amio found to have MRSA cellulitis and MRSA bacteremia with septic pulmonary emboli on Vanc, currently HDS in NSR mostly s/p DCCV pending dispo. Plan #pAF with RVR s/p DCCV Home regimen: metop 50 mg daily. Previously on sotalol 80 mg (15 d supply last dispensed 02/07/23). TTE 02/20 read LVEF 55-60, no valvular dz. S/p DCCV. NSR except reverting back to Afib w RVR on 03/04 iso holding metop due to n/v. Metop briefly started but then discontinued iso severe n/v/dizziness/vertigo. Currently in NSR with Amio 200 BID. - Continue with home Eliquis - Continue amio to 200 every day - Dose reduce Gabapentin to 200 BID on 03/06 (~75% reduction w/ eGFR 25). - Scheduled to see PILO Ravi at Dr. Stafford's office on Mar 20 #Dizziness #Nausea #Orthostatic hypotension Developed new nausea and dizziness at rest from 03/01-, managed by Zofran. HINTS exam showed unidirectional, horizontal nystagmus, positive skew test, and abnormal head impulse test, suggesting peripheral rather than central vestibulopathy which is reassuring, although pt was not in acute episode at the time and so might not be valid. Tried Amiodarone with food and at the mean time discontinued Metop, which seemed to be helping, although reverted back to Afib with RVR on 03/04 that resolved with re-initiation of Metop 25. Had n/v/dizziness/headache on 03/05 while on Amio 400 BID and Metop XL 25 with positive orthostatic hypotension. Held Metop XL 25, gave 1L fluids on 03/06 but had three moreepisodes of dizziness or vertigo and positive orthostatic hypotension. Gabapentin was also reduced on given CLAUDIA. Endorsed 15min vertigo 03/07 AM and intermittent dizziness throughout the day. Also noticed jerkiness in L leg when sitting at the edge of the bed. Neuro exam notable for clonus L > R, HINTS exam unchanged from prior, no focal neurological exams otherwise. Still has orthostatic hypotension. Amiodarone reduced from 400 BID to daily on 03/08 with no improvement in sxs. BP dropped to60/30 upon standing on 03/09 with n/v/d unchanged along with Cr increase. Brain MRI w/o (03/08) unremarkable. HINTS/Emeka unremarkable. Orthostatics positive today (03/12): 165/66 sitting and 111/69 standing; responded well to fluids - Appreciate neuro c/s: Meclizine 25 mg q6 PRN -> d/c 03/12 d/t concerns for urinary retention - AM cortisol (03/12) w/o signs of adrenal insufficiency - discontinue Midodrine 10mg TID AC given elevated BP w/ SBP in 160s - May consider ENT c/s if worsens/not improving #MRSA cellulitis #MRSA bacteremia #Septic pulmonary emboli Positive cultures 02/14, but started empirically on vanc 02/12. In house read of OSH CT CAP with septic emboli in lungs, confirmed on repeat this admission. 02/20 Bcx+ within 24 hours MRSE 1/2 bottles, likely contaminant. TTE 02/20 read LVEF 55- 60, no valvular dz or vegetations. 02/20 LUE ultrasound with cellulitis with underlying myositis and small non-drainable fluid collection, verified by CT LUE without osteomyelitis. 02/20 ACCS c/s rec nonoperative. L PICC placed after initial + Bcx, okay to leave inper ID for Vanc course. 02/20 Bcx+ MRSE 1/2 bottles likely contaminant. - ID c/s with recs Abx x4 weeks: Vanc 4 weeks end (02/12-03/03) => PO Linezolid 600mg BID (03/03-03/11) => IV ceftaroline (03/12-03/16) -Concern that linezolid may be contributing to dizziness; initially trialed with food but did not improve -Continue ceftaroline IV for remaining 4 days (until 03/16) if still PO intolerant #CLAUDIA on CKD 3a - stable Per chart review Baseline Cr ~0.9. Cr 1.22 => 1.41 => 1.68 => 2.16 => 2.02 iso restarting home lasix 40 BID and recent IV vanc (last dose supratherapeutic). FeNa 1.3% suggests intrinsic cause. Currently still up from baseline iso poor PO intake, requiring intermittent IV fluid repletion. - Improving with fluids, holding lasix. Continue to monitor - Can resume with lasix 40mg daily when CLAUDIA resolves #Urinary Retention, resolved New overnight w/ bladder scan showing 900 mL. Straight cath removal of 1.1L. Meclizine discontinued. This AM bladder scan (03/12) showed 326 mL but pt spontaneously voided 350 mL after. -CTM and avoid anticholinergic agents #HTN #HLD #CAD c/b OR s/p CABG #apical HCM No indication for triple therapy AC/antiplatelet at this time. Lipid panel with LDL 37, A1c 5.4. Home HTN regimen: lisinopril 10mg. - Atorvastatin 80, Zetia, Plavix - Hold ASA given AC. - Continue to hold home lisinopril 10 mg - Home lasix 40 mg BID held in CCU. Hold now given slight bump in Cr. #R rib pain, resolved #Hip pain, resolved Several day hx, reproducible on exam. Now resolved with Lidocaine patch. - Continue with lidocaine patches #R arm fracture Fracture after ground-level fall 02/06. S/p cast with plan for outpatient follow up. C/o swelling after ortho recast while here but neurovascular intact without numbness/tingling/loss of dexterity. Xray arm wit nondisplaced arm fracture. - RUE platform weight bearing - XR 02/26 per Ortho rec to ensure no interval displacement: minimally displaced ulnar styloid process fracture. [facility]. Ortho will also see while on the floor - appreciate recs. #Anemia of Chronic disease Baseline 9-10. 8.0 on day of admission now stable at 7.4. Fe 24, Ferritin 299, TIBC 192, Tsat 13% suggestive of anemia of chronic disease. B12 1886, folate 15.3. - CTM #IBS Current regimen: [id number] - continue Linaclotide #prior DVT Remote, unprovoked. Chronically on Eliquis. S/p DCCV. Resume Eliquis. #OA #DDD Current regimen: Voltaren gel, gabapentin 600mg QID - Lidocaine patches and APAP as needed, gabapentin 600mg BID - If breakthrough pain, can consider fentanyl patch #osteoporosis Currently on alendronate 70mg qWeekly - CTM, held inpt. Will resume outpt. #GERD Home regimen: omeprazole 20mg - PPI #anxiety/depression - Continue Zoloft Code: Full DVT Prophylaxis: Eliquis Diet: 2g Na Dispo: Possible SNF Te Baker MD PhD Internal Medicine PGY-1 03/12/2023 8:54 AM Cosigned by Miranda Braun MD at 03/12/2023 2:20 PM CDT Associated attestation - Miranda Braun MD - 03/12/2023 2:20 PM CDT I have seen and examined the patient on 03/12/23. I agree with the findings and plan of care as documented in the resident's/fellow's note.. -Nausea improved, able to eat this morning. -Urinary retention, will cont to observe of meds with serial bladder scans to assess the need for rich. -Bacteremia, negative work up for endocarditis, however with possible septic emboli on CT, switchedABx for nausea, appreciate ID recs. -AF s/p DCCV, cont amiodarone, advised to take with meals. -Orthostatic hypotension, will attempt to wean down midodrine * Storm Bach - 03/11/2023 4:02 PM CDT Spiritual Care Note Chaplain Dilshad Bach [phone] 03/11/23 1600 Time Spent Start Time 1440 Stop Time 1500 Time Calculation (min) 20 min Patient Spiritual Assessment Spirituality Assessed Focus of Care Clinical Encounter Type Visited With Patient;Health care provider (Paul (ESTHER)) Response Type Routine visit Routine Visit Introduction Reason for visit Anxiety;Support Outcomes and Progress Preserve dignity and respect Achieved Demonstrating care and respect Achieved Meaning making (Memory making) Achieved Establish rapport and connectedness Achieved Sense of peace Achieved Lessen anxiety Achieved Lessen someone's feelings of lonliness Achieved Interventions Interventions Active listening;Assist with finding purpose;Offer emotional support;Offer spiritual/protestant support * Suki Francisco, PT - 03/11/2023 1:30 PM CDT Physical Therapy 03/11/23 1329 General PT Missed Visit Reason Patient declined (2/2 nausea and lightheadedness/dizziness, was orthostatic with OT this AM) Recommendation/Plan PT Frequency during current admission 3-5x/wk PT - Next Appointment 03/12/23 * Brittney Roth, OT - 03/11/2023 8:28 AM CDT Occupational Therapy Occupational Therapy Progress Note NOTE: This is a summary note of the martinez components of the treatment session. For full details, review chart for all flowsheets documented on by this occupational therapy clinician on this date. Vitalsigns documented in vital signs flowsheet. Care plan progress documented in Care Plan Activity. For questions, please review the treatment team and contact the occupational therapist currently assigned to this patient. If an occupational therapist is not assigned to this patient, please call [phone]. 03/11/23 1138 General Session Type Treatment OT Received On 03/11/23 Safe Environment Arm band checked;Patient found in supine;Gait belt utilized for all out of bed mobility Subjective Agreeable to Therapy Family/Caregiver Present No Precautions Precautions Fall risk Weight Bearing Restrictions Yes RUE Weight Bearing NWB (okay for platform WB) Precaution Comments Pt demo adherence to precautions with min cues and assist. PPE worn by therapist: gloves, gown, surgical mask. Pain Assessment Pain Assessment No/denies pain Balance Balance Yes Static Sitting Balance Static Sitting-Balance Support No upper extremity supported Static Sitting-Sitting Surface Bed Static Sitting-Level of Assistance Close supervision Static Standing Balance Static Standing-Balance Support Unilateral upper extremity supported Static Standing-Standing Surface Floor Static Standing-Level of Assistance Contact guard Static Standing-Comment/# of Minutes safety, balance Dynamic Standing Balance Dynamic Standing-Balance Support No upper extremity supported Dynamic Standing-Balance Forward lean;Reaching for objects Dynamic Standing-Standing Surface Floor Dynamic Standing-Level of Assistance Minimum assistance Dynamic Standing-Comments min assist to maintain balance during ADLs ADL ADLS (WDL) X Grooming Grooming: Where assessed Standing at sink Grooming: Level of assistance Minimum Assist (min task, min balance in standing) Toileting Toileting: Where assessed Toilet Toileting: Level of assistance Moderate Assist Toileting: Assistance with Clothing management up;Posterior Bed Mobility Bed Mobility Yes Bed Mobility 1 Bed Mobility From 1 Supine Bed Mobility Type 1 To and from Bed Mobility to 1 Edge of bed Level of Assistance 1 Minimum Assist Bed Mobility Comments 1 min assist for adjusting hips towards EOB Transfers Transfer Yes Transfer 1 Transfer From 1 Sit Transfer Type 1 To and from Transfer to 1 Stand Transfer Device 1 Hand held assist Transfer Level of Assistance 1 Minimum Assist Trials/Comments 1 x3 trials, min assist for force production and cues for hand placement and body mechanics Toilet Transfers Toilet Transfer From Bed Toilet Transfer Type To and from Toilet Transfer to Standard toilet Toilet Transfer Technique Ambulating Toilet Transfer: Equipment No device;Hand hold Toilet Transfers Minimal assistance Toilet Transfers Comments min assist for force production, min assist for balance during functionalmobility to/from bathroom Cognition Arousal/Alertness Alert Attention Span Appears intact Current communication Appears Intact Orientation Oriented X4 (person, place, time, situation) Following Commands Follows all commands and directions without difficulty Safety Judgment Good awareness of safety precautions Awareness of Errors Good awareness of errors made Insight Decreased awareness of deficits Problem Solving Assistance required to identify errors made Compliance/Behavior Easy to engage Other Comments Comments Pt motivated to participate in OT session this date. Pt limited by dizziness and nausea this date; in bathroom, pt reports feeling dizzy, requiring chair to be brought to bathroom for safetyinstead of ambulating back to bed; PHILIP Cisse notified and in room. Pt would continue to benefit from skilled OT intervention to increase safety and participation in ADLs and functional mobility. Daily Activity - 6 Clicks Putting on and taking off regular lower body clothing 2 Bathing 3 Toileting 2 Putting on and taking off upper body clothing 3 Personal Grooming 3 Eating Meals 4 Total Score (range 6-24) 17 Score Interpretation 37.26 Safe Environment End of Therapy Session Safe Environment End of Therapy Session Patient left supine in bed;Bed alarm in place and activated;RN notified;Call light within reach;Overbed table within reach (PHILIP Cisse in room) Assessment Problem List Decreased ADL independence;Decreased IADL independence;Decreased functional mobility;Decreased balance;Decreased endurance;Decreased UE function;Other (Comment) (dizziness, nausea) Barriers to Discharge Current Mobility Status (impaired ADL performance) Barrier Comments fall risk Plan Plan Continue with current plan;If this is the last note, consider this the discharge summary Recommendation/Plan OT Recommendation Inpatient Rehab Facility Patient at high risk for Falls;Readmission;Injury due to decreased ability to care for self;Injury due to reduced functional status;Injury due to balance deficits;Injury at home as patient has not returned to prior level of function Recommend Inpatient Rehab/Acute Rehab due to Ability to actively participate in intensive therapy 3hours/day, 5 days/week or 900 minutes per week;Highly motivated to participate in therapy;Not at baseline due to impaired ability to complete ADLs;Impaired ability to complete functional mobility;Likely to return to the community at discharge with support system in place;Requires greater than 25% physical assistance with most mobility tasks;Requires greater than 25% physical assistance with most ADL tasks;Requires multiple therapy disciplines to address functional deficits OT Frequency during current admission 3-5x/wk Treatment/Interventions during current admission ADL/IADL retraining;Balance Training;Bed mobility;Endurance training;Functional activity;Functional mobility training;Functional transfer training;Strengthening;Therapeutic activity Progress during current admission Slow progress, medical status limitations OT - Next Appointment 03/12/23 Multi-Disciplinary Problems (from Occupational Therapy) Active Problems Problem: Dressings Lower Extremities Start Date: 02/24/23 Goal Start Date Expected End Date End Date STG - Patient to complete lower body dressing 02/24/23 03/14/23 -- Goal Details: With supervision Problem: Dressing Upper Extremities Start Date: 02/24/23 Goal Start Date Expected End Date End Date STG - Patient will dress upper body 02/24/23 03/14/23 -- Goal Details: With supervision Problem: Grooming Start Date: 02/24/23 Goal Start Date Expected End Date End Date STG - Patient will complete grooming 02/24/23 03/14/23 -- Goal Details: in standing at bathroom sink with supervision Problem: Toileting Start Date: 02/24/23 Goal Start Date Expected End Date End Date STG - Patient will complete toileting tasks with 02/24/23 03/14/23 -- Goal Details: supervision Problem: Transfers Start Date: 02/24/23 Goal Start Date Expected End Date End Date STG - Patient will perform toilet transfer 02/24/23 03/14/23 -- Goal Details: to toilet in bathroom with supervision Problem: OT Misc Start Date: 02/24/23 Goal Start Date Expected End Date End Date OT LTG - Misc 1 02/24/23 03/20/23 -- Goal Details: Pt will complete ADLs with independence. * Te Baker MD - 03/11/2023 7:22 AM CDT Cardiology Daily Progress Note Subjective Interval events - Pt reported improvement in dizziness at early AM interview but worsened by rounds - States she felt uneasy after getting up and going to the bathroom - not able to take medication today thusfar Objective Vitals: 24hr Min/Max: Temp Min: 36.4 ??C (97.5 ??F) Max: 36.9 ??C (98.4 ??F) Pulse Min: 52 Max: 81 BP Min: 99/50 Max: 157/71 Resp Min: 16 Max: 16 SpO2 Min: 94 % Max: 97 % Most Recent : Vitals: 03/11/23 1200 BP: 143/58 Pulse: 61 Resp: 16 Temp: 36.8 ??C (98.2 ??F) SpO2: 95% I/O last 3 completed shifts: In: 848 [P.O.:808; I.V.:40] Out: 600 [Urine:600] Physical Exam: General: Not in distress, appears comfortable HEENT: Normocephalic, no conjunctival pallor, no scleral icterus Cardiac: Normal rate; regular rhythm; audible S1 and S2 without appreciable murmurs, rubs, or gallops; 2+ radial pulses; no LE edema; no JVD nor hepato- jugular reflux Pulm: clear to auscultation bilaterally; no wheezes, rales, or rhonchi GI/Abd: Soft, nontender, nondistended MSK: Normal bulk and tone, no joint effusions or major deformities Skin: No rash or bruises Extremities: minimal pitting edema in BLE Neuro: AAO x 4, CN II-XII grossly intact, moves all extremities spontaneously. Notable labs: Cr stable around 1.8 but elevated from previous bl of approx 1.0 Brain MRI wo contrast 03/08/2023 There is a T1 hyperintense lesion in the left frontoparietal calvarium, likely representing a small hemangioma. The superior sagittal sinus demonstrates normal venous flow. There is expansion of the subarachnoid spaces along the frontal lobes. The corpus callosum is normal in shape and signal intensity. The posterior fossa is unremarkable. The pituitary and sella are normal. The brainstem and craniocervical junction are unremarkable. There is a moderate burden of T2/FLAIR white matter hyperintensities, largely within the periventricular and subcortical white matter in a nonspecific pattern. There is moderate parenchymal volume loss. There is a chronic lacunar infarct in the right caudate. In the left inferior artis, an apparent area of DWI hyperintensity is favored to represent artifact given absence of definite correlate on other sequences and adjacent artifact. Diffusion weighted images otherwise reveal no hyperintensities to suggest acute cerebral infarction. There are foci of susceptibility in the left frontal lobe, left basal ganglia, and right caudate, likely suggestive of prior microhemorrhages. The ventricles are normal in size and position without evidence of hydrocephalus. The paranasal sinuses are normal. The visualized portions of the mastoids are unremarkable. Normal flow voids are demonstrated in the carotid arteries and basilar artery. IMPRESSION: 1. No acute intracranial abnormality. 2. Moderate global cerebral atrophy, white matter disease, chronic lacunar infarcts, and microhemorrhages suggestive of cerebral small vessel ischemic disease. Assessment Tiera Lobato is a 77 y.o. female with a PMH of pAF, Apical variant HCM, CAD with OR in 2012 s/p CABG with LAWSON to LAD and SVG to OM, HTN, DDD,diverticulitis, vertigo, prior DVT, OA who presents as an OSH transfer for AFib with RVR complicated by hemodynamic instability now rate controlled onoral dig / metop /amio found to have MRSA cellulitis and MRSA bacteremia with septic pulmonary emboli on Vanc, currently HDS in NSR mostly s/p DCCV pending dispo. Plan #pAF with RVR s/p DCCV #Dizziness Home regimen: metop 50 mg daily. Previously on sotalol 80mg (15d supply last dispensed 02/07/23). TTE 02/20 read LVEF 55-60, no valvular dz. S/p DCCV. NSR except reverting back to Afib w RVR on 03/04 isoholding metop due to n/v. Metop briefly started but then discharged iso severe n/v/dizziness/vertigo. Currently in NSR with Amio 400 BID. - Continue with home Eliquis - Continue amio to 200 every day - Dose reduce Gabapentin to 200 BID on 03/06 (~75% reduction w/ eGFR 25). - Scheduled to see KNIFE GLAZER Harpreet Ravi at Dr. Stafford's office on Mar 20 #Dizziness #Nausea Developed new nausea and dizziness at rest from 03/01-, managed by Zofran. HINTS exam showed unidirectional, horizontal nystagmus, positive skew test, and abnormal head impulse test, suggesting peripheral rather than central vestibulopathy which is reassuring, although pt was not in acute episode at the time and so might not be valid. Tried Amiodarone with food and at the mean time discontinued Metop, which seemed to be helping, although reverted back to Afib with RVR on 03/04 that resolved with re-initiation of Metop 25. Had n/v/dizziness/headache on 03/05 while on Amio 400 BID and Metop XL 25 with positive orthostatic hypotension. Held Metop XL 25, gave 1L fluids on 03/06 but had three moreepisodes of dizziness or vertigo and positive orthostatic hypotension. Gabapentin was also reduced on given CLAUDIA. Endorsed 15min vertigo 03/07 AM and intermittent dizziness throughout the day. Also noticed jerkiness in L leg when sitting at the edge of the bed. Neuro exam notable for clonus L > R, HINTS exam unchanged from prior, no focal neurological exams otherwise. Still has orthostatic hypotension. Amiodarone reduced from 400 BID to daily on 03/08 with no improvement in sxs. BP dropped to60/30 upon standing on 03/09 with n/v/d unchanged along with Cr increase. Brain MRI w/o (03/08) unremarkable. HINTS/Emeka unremarkable. Ddx: medication-associated neural toxicity (?amiodarone) vs orthostatic hypotension iso poor PO intake d/t nausea vs inner ear problems (vestibulitis?). - Appreciate neuro c/s: Meclizine 25 mg q6 PRN - May consider ENT c/s if worsens/not improving - Responded well to 1L LR bolus previously and will give another 1L for poor PO tolerance - Re-attempt AM cortisol to r/o adrenal insufficiency - Continue Midodrine 10mg TID AC ->re-eval needs daily as BP is now normal/slightly elevated #MRSA cellulitis #MRSA bacteremia #Septic pulmonary emboli Positive cultures 02/14, but started empirically on vanc 02/12. In house read of OSH CT CAP with septic emboli in lungs, confirmed on repeat this admission. 02/20 Bcx+ within 24 hours MRSE 1/2 bottles, likely contaminant. TTE 02/20 read LVEF 55- 60, no valvular dz or vegetations. 02/20 LUE ultrasound with cellulitis with underlying myositis and small non-drainable fluid collection, verified by CT LUE without osteomyelitis. 02/20 ACCS c/s rec nonoperative. L PICC placed after initial + Bcx, okay to leave inper ID for Vanc course. 02/20 Bcx+ MRSE 1/2 bottles likely contaminant. - ID c/s with recs Abx x4 weeks: Vanc 4 weeks end (02/12-03/03) => PO Linezolid 600mg BID (03/03-03/11) => IV ceftaroline (03/12-03/16) -Concern that linezolid may be contributing to dizziness; initially trialed with food but did not improve -ID recommend switch to ceftaroline IV for remaining 5 days (until 03/16) if still PO intolerant #CLAUDIA on CKD 3a - stable Per chart review. Baseline Cr ~0.9. Cr 1.22 => 1.41 => 1.68 => 2.16 => 2.02 iso restarting home lasix 40 BID and recent IV vanc (last dose supratherapeutic). FeNa 1.3% suggests intrinsic cause. Currently still up from baseline iso poor PO intake, requiring intermittent IV fluid repletion. - Improving with fluids, holding lasix. Continue to monitor - Can resume with lasix 40mg daily when CLAUDIA resolves #HTN #HLD #CAD c/b OR s/p CABG #apical HCM No indication for triple therapy AC/antiplatelet at this time. Lipid panel with LDL 37, A1c 5.4. Home HTN regimen: lisinopril 10mg. - Atorvastatin 80, Zetia, Plavix - Hold ASA given AC. - Continue to hold home lisinopril 10mg - Home lasix 40mg BID held in CCU. Hold now given slight bump in Cr. #R rib pain #Hip pain Several day hx, reproducible on exam. Now resolved with Lidocaine patch. - Continue with lidocaine patches #R arm fracture Fracture after ground-level fall 02/06. S/p cast with plan for outpatient follow up. C/o swelling after ortho recast while here but neurovascular intact without numbness/tingling/loss of dexterity. Xray arm wit nondisplaced arm fracture. - RUE platform weight bearing - XR 02/26 per Ortho rec to ensure no interval displacement: minimally displaced ulnar styloid process fracture. [facility]. Ortho will also see while on the floor - appreciate recs. #Anemia of Chronic disease Baseline 9-10. 8.0 on day of admission now stable at 7.4. Fe 24, Ferritin 299, TIBC 192, Tsat 13% suggestive of anemia of chronic disease. B12 1886, folate 15.3. - CTM #IBS Current regimen: [id number] - continue Linaclotide #prior DVT Remote, unprovoked. Chronically on Eliquis. S/p DCCV. Resume Eliquis. #OA #DDD Current regimen: Voltaren gel, gabapentin 600mg QID - Lidocaine patches and APAP as needed, gabapentin 600mg BID - If breakthrough pain, can consider fentanyl patch #osteoporosis Currently on alendronate 70mg qWeekly - CTM, held inpt. Will resume outpt. #GERD Home regimen: omeprazole 20mg - PPI #anxiety/depression - Continue Zoloft Code: Full DVT Prophylaxis: Eliquis Diet: 2g Na Dispo: Possible SNF Te Baker MD PhD Internal Medicine PGY-1 03/11/2023 2:19 PM Cosigned by Benjamín Mancuso MD at 03/11/2023 3:01 PM CDT Associated attestation - Benjamín Mancuso MD - 03/11/2023 3:01 PM CDT I have seen and examined the patient on 03/11/23. I agree with the findings and plan of care as documented in the resident's/fellow's note.. * Jenna Soto RD - 03/10/2023 2:15 PM CDT Nutrition Assessment Reason for Assessment: Follow Up Encounter Date: 03/10/23 2:15 PM Patient is a 77 y.o. female. LOS is 21 days. HPI: Pt with PMH of pAF, Apical variant HCM, CAD with OR in 2012 s/p CABG with LAWSON to LAD and SVG to OM, HTN, DDD,diverticulitis, vertigo, prior DVT, OA who presents as an OSH transfer for AFib with RVR complicated by hemodynamic instability now rate controlled on oral dig / metop /amio also found to have MRSA cellulitis and MRSA bacteremia with septic pulmonary emboli on Vanc. Objective Past Medical History: Diagnosis Date Acid reflux Heart murmur High cholesterol History of blood clots 1960s in leg as teenager - had phlebitis History of OR (myocardial infarction) 2012 History of vertebral fracture 2018 HTN (hypertension) IBS (irritable bowel syndrome) Vertigo Past Surgical History: Procedure Laterality Date COLON SURGERY 1992 Repair burst colon CORONARY ARTERY BYPASS GRAFT 2012 Double by-pass - [facility] FLUORO GUIDED INJECTION HIP RIGHT Right 05/16/2022 FLUORO GUIDED INJECTION HIP RIGHT Right 08/15/2022 FLUORO GUIDED INJECTION HIP RIGHT Right 12/10/[address] James ([place], [place]) TOTAL KNEE ARTHROPLASTY Right 2018 Social [...] Prostate cancer Father Stroke Child Hypertension Child Anthropometrics: Wt Readings from Last 3 Encounters: 03/10/23 78.7 kg (173 lb 9.6 oz) 01/20/23 83 kg (182 lb 15.7 oz) 01/13/23 85.7 kg (189 lb) Anthropometrics Weight: 78.7 kg (173 lb 9.6 oz) Admission Weight : 89.1 kg Weight Change: -4.95 kg (-10.92 lbs) IBW/kg (Calculated) : 54.4 kg Height: 162.6 cm (5' 4 ) Weight in (lb) to have BMI = 25: 145.3 BMI (Calculated): 29.8 Nutrition Needs Calculations: Calculated Energy Needs Using Equations Weight: 78.7 kg (173 lb 9.6 oz) Height: 162.6 cm (5' 4 ) Vital Signs: BP: 140/82 Temp: 36.5 ??C (97.7 ??F) Pulse: 58 Resp: 14 SpO2: 97 % Medications: Scheduled Meds: [START ON 03/11/2023] amiodarone, 200 mg, oral, Daily apixaban, 5 mg, oral, BID atorvastatin, 80 mg, oral, Nightly calcium carbonate-vitamin D3, 1 tablet, oral, Daily clopidogreL, 75 mg, oral, Daily diclofenac sodium, 2 g, topical, TID ezetimibe, 10 mg, oral, Daily gabapentin, 200 mg, oral, BID lidocaine, 1 patch, transdermal, Daily lidocaine, 2 patch, transdermal, Daily linaCLOtide, 145 mcg, oral, Before breakfast linezolid, 600 mg, oral, BID midodrine, 10 mg, oral, TID AC pantoprazole DR, 40 mg, oral, Daily sertraline, 50 mg, oral, Daily sodium chloride 0.9%, 5-10 mL, intra-catheter, Q12H AGUS Continuous Infusions: PRN Meds: acetaminophen camphor-menthoL meclizine ondansetron sodium chloride 0.9% Lab Review: Sodium Date Value Ref Range Status 03/10/2023 139 135 - 145 mmol/L Final Potassium, pl Date Value Ref Range Status 03/10/2023 4.4 3.3 - 4.9 mmol/L Final BUN Date Value Ref Range Status 03/10/2023 8 6 - 25 mg/dL Final Creatinine Date Value Ref Range Status 03/10/2023 1.86 (H) 0.60 - 1.10 mg/dL Final Magnesium Date Value Ref Range Status 03/09/2023 1.9 1.4 - 2.5 mg/dL Final Calcium Date Value Ref Range Status 03/10/2023 9.2 8.5 - 10.3 mg/dL Final Lab Results Component Value Date HGBA1C 5.8 (H) 02/18/2023 HDL 16 (L) 02/18/2023 LDLCALC 37 02/18/2023 CHOL 78 02/18/2023 TRIG 124 02/18/2023 Nursing Assessment: Intake/Output Summary (Last 24 hours) at 03/10/2023 1415 Last data filed at 03/10/2023 1325 Gross per 24 hour Intake 588 ml Output 1050 ml Net -462 ml Gastrointestinal Gastrointestinal (WDL): Within Defined Limits Abdomen Inspection: Soft, Nondistended Bowel Sounds (All Quadrants): Active, Present Palpation: Soft, Nontender Last BM Date: 03/08/23 Passing Flatus: Yes GI Symptoms: None Nausea Precipitating Factors: Other (Comment) Relieved by: Antiemetic Last BM Date: 03/08/23 Nixon Scale Score: 23 Skin Integrity: Bruising Edema: No pitting Oral Mucosa Grade: Normal (0) Dietary Orders (From admission, onward) Start Ordered 02/26/23 1250 Adult Diet Restricted; 2 GM Sodium Diet effective now Question Answer Comment ([facility]) Diet type Restricted Fat / Sodium Restriction: 2 GM Sodium 02/26/23 1250 Impression: Pt reports terrible appetite and having nausea and vomiting. Pt reports no diarrhea and last bowel movement noted on 03/08. Documented po intakes appear fair. Pt denied all supplements at this time. NUTRITION DIAGNOSIS Nutrition Diagnosis 1: Inadequate oral intake Related to: Loss of appetite, Nausea, Vomiting Evidenced by: Patient interview INTERVENTION Continue to follow po intakes and if Pt has anymore nausea or vomiting. Offer supplements again at next follow up as needed. Follow plan of care. GOALS / MONITORING: Goals: Oral intake to meet 75% estimated nutritional needs by next assessment Interventions: Encouragement Monitoring and Evaluation: Appetite, Labs, Plan of care, PO intake, Stool patterns, Weight changes Jenna Soto MS, RD, LD [phone] * Preeti Mena OT - 03/10/2023 10:28 AM CDT Occupational Therapy 03/10/23 1028 General OT Missed Visit Reason Patient declined * Te Baker MD - 03/10/2023 10:14 AM CDT Cardiology Daily Progress Note Subjective Interval events - Pt reports improvement in dizziness today though needed IV zofran for nausea this AM - No other acute sx today Objective Vitals: 24hr Min/Max: Temp Min: 36.4 ??C (97.5 ??F) Max: 36.9 ??C (98.4 ??F) Pulse Min: 57 Max: 62 BP Min: 139/59 Max: 151/56 Resp Min: 19 Max: 20 SpO2 Min: 93 % Max: 97 % Most Recent : Vitals: 03/10/23 0735 BP: 139/59 Pulse: 59 Resp: 19 Temp: 36.9 ??C (98.4 ??F) SpO2: 96% I/O last 3 completed shifts: In: 2037 [P.O.:1038; IV Piggyback:1000] Out: 850 [Urine:850] Physical Exam: General: Not in distress, appears comfortable HEENT: Normocephalic, no conjunctival pallor, no scleral icterus Cardiac: Normal rate; regular rhythm; audible S1 and S2 without appreciable murmurs, rubs, or gallops; 2+ radial pulses; no LE edema; no JVD nor hepato- jugular reflux Pulm: clear to auscultation bilaterally; no wheezes, rales, or rhonchi GI/Abd: Soft, nontender, nondistended MSK: Normal bulk and tone, no joint effusions or major deformities Skin: No rash or bruises Extremities: minimal pitting edema in BLE Neuro: AAO x 4, CN II-XII grossly intact, moves all extremities spontaneously. Notable labs: Cr stable around 1.8 but elevated from previous bl of approx 1.0 Brain MRI wo contrast 03/08/2023 There is a T1 hyperintense lesion in the left frontoparietal calvarium, likely representing a small hemangioma. The superior sagittal sinus demonstrates normal venous flow. There is expansion of the subarachnoid spaces along the frontal lobes. The corpus callosum is normal in shape and signal intensity. The posterior fossa is unremarkable. The pituitary and sella are normal. The brainstem and craniocervical junction are unremarkable. There is a moderate burden of T2/FLAIR white matter hyperintensities, largely within the periventricular and subcortical white matter in a nonspecific pattern. There is moderate parenchymal volume loss. There is a chronic lacunar infarct in the right caudate. In the left inferior artis, an apparent area of DWI hyperintensity is favored to represent artifact given absence of definite correlate on other sequences and adjacent artifact. Diffusion weighted images otherwise reveal no hyperintensities to suggest acute cerebral infarction. There are foci of susceptibility in the left frontal lobe, left basal ganglia, and right caudate, likely suggestive of prior microhemorrhages. The ventricles are normal in size and position without evidence of hydrocephalus. The paranasal sinuses are normal. The visualized portions of the mastoids are unremarkable. Normal flow voids are demonstrated in the carotid arteries and basilar artery. IMPRESSION: 1. No acute intracranial abnormality. 2. Moderate global cerebral atrophy, white matter disease, chronic lacunar infarcts, and microhemorrhages suggestive of cerebral small vessel ischemic disease. Assessment Tiera Lobato is a 77 y.o. female with a PMH of pAF, Apical variant HCM, CAD with OR in 2012 s/p CABG with LAWSON to LAD and SVG to OM, HTN, DDD,diverticulitis, vertigo, prior DVT, OA who presents as an OSH transfer for AFib with RVR complicated by hemodynamic instability now rate controlled onoral dig / metop /amio found to have MRSA cellulitis and MRSA bacteremia with septic pulmonary emboli on Vanc, currently HDS in NSR mostly s/p DCCV pending dispo. Plan #pAF with RVR s/p DCCV #Dizziness Home regimen: metop 50 mg daily. Previously on sotalol 80mg (15d supply last dispensed 02/07/23). TTE 02/20 read LVEF 55-60, no valvular dz. S/p DCCV. NSR except reverting back to Afib w RVR on 03/04 isoholding metop due to n/v. Metop briefly started but then discharged iso severe n/v/dizziness/vertigo. Currently in NSR with Amio 400 BID. - Continue with home Eliquis - Reduce amio to 200 every day in case contributing to dizzy spells/vertigo, which will be discharge dose - Dose reduce Gabapentin to 200 BID on 03/06 (~75% reduction w/ eGFR 25). - Scheduled to see PILO Ravi at Dr. Stafford's office on Mar 20 #Dizziness #Nausea Developed new nausea and dizziness at rest from 03/01-, managed by Zofran. HINTS exam showed unidirectional, horizontal nystagmus, positive skew test, and abnormal head impulse test, suggesting peripheral rather than central vestibulopathy which is reassuring, although pt was not in acute episode at the time and so might not be valid. Tried Amiodarone with food and at the mean time discontinued Metop, which seemed to be helping, although reverted back to Afib with RVR on 03/04 that resolved with re-initiation of Metop 25. Had n/v/dizziness/headache on 03/05 while on Amio 400 BID and Metop XL 25 with positive orthostatic hypotension. Held Metop XL 25, gave 1L fluids on 03/06 but had three moreepisodes of dizziness or vertigo and positive orthostatic hypotension. Gabapentin was also reduced on given CLAUDIA. Endorsed 15min vertigo 03/07 AM and intermittent dizziness throughout the day. Also noticed jerkiness in L leg when sitting at the edge of the bed. Neuro exam notable for clonus L > R, HINTS exam unchanged from prior, no focal neurological exams otherwise. Still has orthostatic hypotension. Amiodarone reduced from 400 BID to daily on 03/08 with no improvement in sxs. BP dropped to60/30 upon standing on 03/09 with n/v/d unchanged along with Cr increase. Brain MRI w/o (03/08) unremarkable. HINTS/Emeka unremarkable. Ddx: medication-associated neural toxicity (?amiodarone) vs orthostatic hypotension iso poor PO intake d/t nausea vs inner ear problems (vestibulitis?). - Appreciate neuro c/s: Meclizine 25 mg q6 PRN - May consider ENT c/s if worsens/not improving - Responded well to 1L LR bolus yesterday (03/10) give d/t orthostats - f/u AM cortisol to r/o adrenal insufficiency - Continue Midodrine 10mg TID AC #CLAUDIA on CKD 3a - stable Per chart review. Baseline Cr ~0.9. Cr 1.22 => 1.41 => 1.68 => 2.16 => 2.02 iso restarting home lasix 40 BID and recent IV vanc (last dose supratherapeutic). FeNa 1.3% suggests intrinsic cause. Currently still up from baseline iso poor PO intake, requiring intermittent IV fluid repletion. - Improving with fluids, holding lasix. Continue to monitor - Can resume with lasix 40mg daily when CLAUDIA resolves #R rib pain #Hip pain Several day hx, reproducible on exam. Now resolved with Lidocaine patch. - Continue with lidocaine patches #MRSA cellulitis #MRSA bacteremia #Septic pulmonary emboli Positive cultures 02/14, but started empirically on vanc 02/12. In house read of OSH CT CAP with septic emboli in lungs, confirmed on repeat this admission. 02/20 Bcx+ within 24 hours MRSE 1/2 bottles, likely contaminant. TTE 02/20 read LVEF 55- 60, no valvular dz or vegetations. 02/20 LUE ultrasound with cellulitis with underlying myositis and small non-drainable fluid collection, verified by CT LUE without osteomyelitis. 02/20 ACCS c/s rec nonoperative. L PICC placed after initial + Bcx, okay to leave inper ID for Vanc course. 02/20 Bcx+ MRSE 1/2 bottles likely contaminant. - ID c/s with recs Abx x4 weeks: Vanc 4 weeks end (02/12-03/03) => PO Linezolid 600mg BID (03/03-03/16) -Discussed w/ pt that linezolid may be contributing to dizziness, however no PO alternative exists;pt agreeable to continuation to upcoming completion of abx regimen on 03/16 #HTN #HLD #CAD c/b OR s/p CABG #apical HCM No indication for triple therapy AC/antiplatelet at this time. Lipid panel with LDL 37, A1c 5.4. Home HTN regimen: lisinopril 10mg. - Atorvastatin 80, Zetia, Plavix - Hold ASA given AC. - Continue to hold home lisinopril 10mg - Home lasix 40mg BID held in CCU. Hold now given slight bump in Cr. #R arm fracture Fracture after ground-level fall 02/06. S/p cast with plan for outpatient follow up. C/o swelling after ortho recast while here but neurovascular intact without numbness/tingling/loss of dexterity. Xray arm wit nondisplaced arm fracture. - RUE platform weight bearing - XR 02/26 per Ortho rec to ensure no interval displacement: minimally displaced ulnar styloid process fracture. [facility]. Ortho will also see while on the floor - appreciate recs. #Anemia of Chronic disease Baseline 9-10. 8.0 on day of admission now stable at 7.4. Fe 24, Ferritin 299, TIBC 192, Tsat 13% suggestive of anemia of chronic disease. B12 1886, folate 15.3. - CTM #IBS Current regimen: [id number] - continue Linaclotide #prior DVT Remote, unprovoked. Chronically on Eliquis. S/p DCCV. Resume Eliquis. #OA #DDD Current regimen: Voltaren gel, gabapentin 600mg QID - Lidocaine patches and APAP as needed, gabapentin 600mg BID - If breakthrough pain, can consider fentanyl patch #osteoporosis Currently on alendronate 70mg qWeekly - CTM, held inpt. Will resume outpt. #GERD Home regimen: omeprazole 20mg - PPI #anxiety/depression - Continue Zoloft Code: Full DVT Prophylaxis: Eliquis Diet: 2g Na Dispo: Possible SNF Te Baker MD PhD Internal Medicine PGY-1 03/10/2023 10:14 AM Cosigned by Benjamín Mancuso MD at 03/11/2023 2:13 PM CDT Associated attestation - Benjamín Mancuso MD - 03/11/2023 2:13 PM CDT I have seen and examined the patient on 03/10/2023. I agree with the findings and plan of care as documented in the resident's/fellow's note.. * Ritika Serrano MD - 03/09/2023 6:59 AM CDT Cardiology Daily Progress Note Subjective Interval events - Continues to have dizzy episodes (x2-3), even at rest, not able to drink much as a result. Feeling worse over the last two days compared to Friday - BP dropped to 60s/30s this am when standing up, symptomatic. - Brain MRI w/o contrast unremarkable Objective Vitals: 24hr Min/Max: Temp Min: 36.7 ??C (98.1 ??F) Max: 37.3 ??C (99.1 ??F) Pulse Min: 64 Max: 66 BP Min: 101/49 Max: 117/45 Resp Min: 18 Max: 18 SpO2 Min: 92 % Max: 95 % Most Recent : Vitals: 03/08/23 2328 BP: 101/49 Pulse: 64 Resp: 18 Temp: 36.9 ??C (98.4 ??F) SpO2: 95% I/O last 3 completed shifts: In: 238 [P.O.:238] Out: 250 [Urine:250] Physical Exam: General: Not in distress, appears comfortable HEENT: Normocephalic, no conjunctival pallor, no scleral icterus Cardiac: Normal rate; regular rhythm; audible S1 and S2 without appreciable murmurs, rubs, or gallops; 2+ radial pulses; no LE edema; no JVD nor hepato- jugular reflux Pulm: clear to auscultation bilaterally; no wheezes, rales, or rhonchi GI/Abd: Soft, nontender, nondistended MSK: Normal bulk and tone, no joint effusions or major deformities Skin: No rash or bruises Extremities: minimal pitting edema in BLE Neuro: AAO x 4, CN II-XII grossly intact, moves all extremities spontaneously. Notable labs: Cr 1.22 => 1.41 => 1.68 => 2.16 => 2.02 => 1.82 => 1.76 => 1.94 Brain MRI wo contrast 03/08/2023 There is a T1 hyperintense lesion in the left frontoparietal calvarium, likely representing a small hemangioma. The superior sagittal sinus demonstrates normal venous flow. There is expansion of the subarachnoid spaces along the frontal lobes. The corpus callosum is normal in shape and signal intensity. The posterior fossa is unremarkable. The pituitary and sella are normal. The brainstem and craniocervical junction are unremarkable. There is a moderate burden of T2/FLAIR white matter hyperintensities, largely within the periventricular and subcortical white matter in a nonspecific pattern. There is moderate parenchymal volume loss. There is a chronic lacunar infarct in the right caudate. In the left inferior artis, an apparent area of DWI hyperintensity is favored to represent artifact given absence of definite correlate on other sequences and adjacent artifact. Diffusion weighted images otherwise reveal no hyperintensities to suggest acute cerebral infarction. There are foci of susceptibility in the left frontal lobe, left basal ganglia, and right caudate, likely suggestive of prior microhemorrhages. The ventricles are normal in size and position without evidence of hydrocephalus. The paranasal sinuses are normal. The visualized portions of the mastoids are unremarkable. Normal flow voids are demonstrated in the carotid arteries and basilar artery. IMPRESSION: 1. No acute intracranial abnormality. 2. Moderate global cerebral atrophy, white matter disease, chronic lacunar infarcts, and microhemorrhages suggestive of cerebral small vessel ischemic disease. Assessment Tiera Lobato is a 77 y.o. female with a PMH of pAF, Apical variant HCM, CAD with OR in 2012 s/p CABG with LAWSON to LAD and SVG to OM, HTN, DDD,diverticulitis, vertigo, prior DVT, OA who presents as an OSH transfer for AFib with RVR complicated by hemodynamic instability now rate controlled onoral dig / metop /amio found to have MRSA cellulitis and MRSA bacteremia with septic pulmonary emboli on Vanc, currently HDS in NSR mostly s/p DCCV pending dispo. Plan #pAF with RVR s/p DCCV #Dizziness Home regimen: metop 50mg daily. Previously on sotalol 80mg (15d supply last dispensed 02/07/23). TTE02/20 read LVEF 55-60, no valvular dz. S/p DCCV. NSR except reverting back to Afib w RVR on 03/04 iso holding metop due to n/v. Metop briefly started but then discharged iso severe n/v/dizziness/vertigo. Currently in NSR with Amio 400 BID. - Continue with home Eliquis - Reduce amio to 400 every day in case contributing to dizzy spells/vertigo - Continue with Metop tartrate 25mg PRN for Afib w RVR - Dose reduce Gabapentin to 200 BID on 03/06 (~75% reduction w/ eGFR 25). - Scheduled to see PILO Ravi at Dr. Stafford's office on Mar 20 #Dizziness #Nausea Developed new nausea and dizziness at rest from 03/01-, managed by Zofran. HINTS exam showed unidirectional, horizontal nystagmus, positive skew test, and abnormal head impulse test, suggesting peripheral rather than central vestibulopathy which is reassuring, although pt was not in acute episode at the time and so might not be valid. Tried Amiodarone with food and at the mean time discontinued Metop, which seemed to be helping, although reverted back to Afib with RVR on 03/04 that resolved with re-initiation of Metop 25. Had n/v/dizziness/headache on 03/05 while on Amio 400 BID and Metop XL 25 with positive orthostatic hypotension. Held Metop XL 25, gave 1L fluids on 03/06 but had three moreepisodes of dizziness or vertigo and positive orthostatic hypotension. Gabapentin was also reduced on given CLAUDIA. Endorsed 15min vertigo 03/07 AM and intermittent dizziness throughout the day. Also noticed jerkiness in L leg when sitting at the edge of the bed. Neuro exam notable for clonus L > R, HINTS exam unchanged from prior, no focal neurological exams otherwise. Still has orthostatic hypotension. Amiodarone reduced from 400 BID to daily on 03/08 with no improvement in sxs. BP dropped to60/30 upon standing on 03/09 with n/v/d unchanged along with Cr increase. Brain MRI w/o (03/08) unremarkable. HINTS/Emeka unremarkable. Ddx: medication-associated neural toxicity (?amiodarone) vs orthostatic hypotension iso poor PO intake d/t nausea vs inner ear problems (vestibulitis?). - Give 1L LR bolus today given orthostatic hypotension this am upon standing. - Appreciate neuro c/s: Meclizine 25 mg q6 PRN - May consider ENT c/s if worsens/not improving - Check AM cortisol to r/o adrenal insufficiency - Midodrine 10mg TID AC - Scheduled Zofran 4mg before meals #CLAUDIA on CKD 3a - stable Per chart review. Baseline Cr ~0.9. Cr 1.22 => 1.41 => 1.68 => 2.16 => 2.02 iso restarting home lasix 40 BID and recent IV vanc (last dose supratherapeutic). FeNa 1.3% suggests intrinsic cause. Currently still up from baseline iso poor PO intake, requiring intermittent IV fluid repletion. - Improving with fluids, holding lasix. Continue to monitor - Can resume with lasix 40mg daily when CLAUDIA resolves #R rib pain #Hip pain New yesterday am, reproducible on exam. Now resolved with Lidocaine patch. - Continue with lidocaine patches #MRSA cellulitis #MRSA bacteremia #Septic pulmonary emboli Positive cultures 02/14, but started empirically on vanc 02/12. In house read of OSH CT CAP with septic emboli in lungs, confirmed on repeat this admission. 02/20 Bcx+ within 24 hours MRSE 1/2 bottles, likely contaminant. TTE 02/20 read LVEF 55- 60, no valvular dz or vegetations. 02/20 LUE ultrasound with cellulitis with underlying myositis and small non-drainable fluid collection, verified by CT LUE without osteomyelitis. 02/20 ACCS c/s rec nonoperative. L PICC placed after initial + Bcx, okay to leave inper ID for Vanc course. 02/20 Bcx+ MRSE 1/2 bottles likely contaminant. - ID c/s with recs Abx x4 weeks: Vanc 4 weeks end (02/12-03/03) => PO Linezolid 600mg BID (03/03-03/16) #HTN #HLD #CAD c/b OR s/p CABG #apical HCM No indication for triple therapy AC/antiplatelet at this time. Lipid panel with LDL 37, A1c 5.4. Home HTN regimen: lisinopril 10mg. - Atorvastatin 80, Zetia, Plavix - Hold ASA given AC. - Continue to hold home lisinopril 10mg - Home lasix 40mg BID held in CCU. Hold now given slight bump in Cr. #R arm fracture Fracture after ground-level fall 02/06. S/p cast with plan for outpatient follow up. C/o swelling after ortho recast while here but neurovascular intact without numbness/tingling/loss of dexterity. Xray arm wit nondisplaced arm fracture. - RUE platform weight bearing - XR 02/26 per Ortho rec to ensure no interval displacement: minimally displaced ulnar styloid process fracture. [facility]. Ortho will also see while on the floor - appreciate recs. #Anemia of Chronic disease Baseline 9-10. 8.0 on day of admission now stable at 7.4. Fe 24, Ferritin 299, TIBC 192, Tsat 13% suggestive of anemia of chronic disease. B12 1886, folate 15.3. - CTM #IBS Current regimen: [id number] - continue Linaclotide #prior DVT Remote, unprovoked. Chronically on Eliquis. S/p DCCV. Resume Eliquis. #OA #DDD Current regimen: Voltaren gel, gabapentin 600mg QID - Lidocaine patches and APAP as needed, gabapentin 600mg BID - If breakthrough pain, can consider fentanyl patch #osteoporosis Currently on alendronate 70mg qWeekly - CTM, held inpt. Will resume outpt. #GERD Home regimen: omeprazole 20mg - PPI #anxiety/depression - Continue Zoloft Code: Full DVT Prophylaxis: Eliquis Diet: 2g Na Dispo: Possible SNF Ritika Serrano MD Internal Medicine PGY-1 03/09/2023 6:59 AM Cosigned by Benjamín Mancuso MD at 03/11/2023 2:12 PM CDT Associated attestation - Benjamín Mancuso MD - 03/11/2023 2:12 PM CDT I have seen and examined the patient on 03/09/2023. I agree with the findings and plan of care as documented in the resident's/fellow's note.. * Mikal Barrow MD - 03/08/2023 9:30 AM CDT Cardiology Daily Progress Note Subjective Interval events - continues to have dizzy episodes, even at rest - eval by neurology yesterday, recommend bMRI, meclizine PRN - BPs improved with fluid resuscitation Objective Vitals: 24hr Min/Max: Temp Min: 36.6 ??C (97.9 ??F) Max: 37.3 ??C (99.1 ??F) Pulse Min: 61 Max: 65 BP Min: 109/52 Max: 117/45 Resp Min: 17 Max: 18 SpO2 Min: 93 % Max: 96 % Most Recent : Vitals: 03/08/23 0822 BP: 117/45 Pulse: 65 Resp: 18 Temp: 37.3 ??C (99.1 ??F) SpO2: 93% I/O last 3 completed shifts: In: 288 [P.O.:288] Out: 700 [Urine:700] Physical Exam: General: Not in distress, appears comfortable HEENT: Normocephalic, no conjunctival pallor, no scleral icterus Cardiac: Normal rate; regular rhythm; audible S1 and S2 without appreciable murmurs, rubs, or gallops; 2+ radial pulses; no LE edema; no JVD nor hepato- jugular reflux Pulm: clear to auscultation bilaterally; no wheezes, rales, or rhonchi GI/Abd: Soft, nontender, nondistended MSK: Normal bulk and tone, no joint effusions or major deformities Skin: No rash or bruises Extremities: minimal pitting edema in BLE Neuro: AAO x 4, CN II-XII grossly intact, moves all extremities spontaneously. Notable labs: Cr 1.22 => 1.41 => 1.68 => 2.16 => 2.02 => 1.82 => 1.76 Assessment Tiera Lobato is a 77 y.o. female with a PMH of pAF, Apical variant HCM, CAD with OR in 2013 s/p CABG with LAWSON to LAD and SVG to OM, HTN, DDD,diverticulitis, vertigo, prior DVT, OA who presents as an OSH transfer for AFib with RVR complicated by hemodynamic instability now rate controlled onoral dig / metop /amio found to have MRSA cellulitis and MRSA bacteremia with septic pulmonary emboli on Vanc, currently HDS in NSR mostly s/p DCCV pending dispo. Plan #pAF with RVR s/p DCCV #Dizziness Home regimen: metop 50mg daily. Previously on sotalol 80mg (15d supply last dispensed 02/07/23). TTE02/20 read LVEF 55-60, no valvular dz. S/p DCCV. NSR except reverting back to Afib w RVR on 03/04 iso holding metop due to n/v. Metop briefly started but then discharged iso severe n/v/dizziness/vertigo. Currently in NSR with Amio 400 BID. - Continue with home Eliquis - Reduce amio to 400 every day in case contributing to dizzy spells/vertigo - Continue with Metop tartrate 25mg PRN for Afib w RVR - Dose reduce Gabapentin to 200 BID on 03/06 (~75% reduction w/ eGFR 25). - Scheduled to see KNIFE GLAZER Harpreet Ravi at Dr. Stafford's office on Mar 20 # Dizziness # Nausea Developed new nausea and dizziness at rest from 03/01-, managed by Leonie. HINTS exam showed unidirectional, horizontal nystagmus, positive skew test, and abnormal head impulse test, suggesting peripheral rather than central vestibulopathy which is reassuring, although pt was not in acute episode at the time and so might not be valid. Tried Amiodarone with food and at the mean time discontinued Metop, which seemed to be helping, although reverted back to Afib with RVR on 03/04 that resolved with re-initiation of Metop 25. Had n/v/dizziness/headache on 03/05 while on Amio 400 BID and Metop XL 25 with positive orthostatic hypotension. Held Metop XL 25, gave 1L fluids on 03/06 but had three moreepisodes of dizziness or vertigo and positive orthostatic hypotension. Gabapentin was also reduced on given CLAUDIA. Endorsed 15min vertigo 9 AM and intermittent dizziness throughout the day. Also noticed jerkiness in L leg when sitting at the edge of the bed. Neuro exam notable for myoclonus L > R, HINTS exam unchanged from prior, no focal neurological exams otherwise. No longer orthostatic hypotensive. Ddx: central neuro lesions vs medication- associated neural toxicity (?amiodarone) vs intolerance of beta blockade. - Appreciate neuro c/s: Meclizine 25 mg q6 PRN; f/u bMRI read #CLAUDIA on CKD 3a - improving Per chart review. Baseline Cr ~0.9. Cr 1.22 => 1.41 => 1.68 => 2.16 => 2.02 iso restarting home lasix 40 BID and recent IV vanc (last dose supratherapeutic). - improving with fluids, holding lasix. Continue to monitor - Can resume with lasix 40mg daily when CLAUDIA resolves #R rib pain #Hip pain New yesterday am, reproducible on exam. Now resolved with Lidocaine patch. - Continue with lidocaine patches #MRSA cellulitis #MRSA bacteremia #Septic pulmonary emboli Positive cultures 02/14, but started empirically on vanc 02/12. In house read of OSH CT CAP with septic emboli in lungs, confirmed on repeat this admission. 02/20 Bcx+ within 24 hours MRSE 1/2 bottles, likely contaminant. TTE 02/20 read LVEF 55- 60, no valvular dz or vegetations. 02/20 LUE ultrasound with cellulitis with underlying myositis and small non-drainable fluid collection, verified by CT LUE without osteomyelitis. 02/20 ACCS c/s rec nonoperative. L PICC placed after initial + Bcx, okay to leave inper ID for Vanc course. 02/20 Bcx+ MRSE 1/2 bottles likely contaminant. - ID c/s with recs Abx x4 weeks: Vanc 4 weeks end (02/12-03/03) => PO Linezolid 600mg BID (03/03-03/16) #HTN #HLD #CAD c/b OR s/p CABG #apical HCM No indication for triple therapy AC/antiplatelet at this time. Lipid panel with LDL 37, A1c 5.4. Home HTN regimen: lisinopril 10mg. - Atorvastatin 80, Zetia, Plavix - Hold ASA given AC. - Continue to hold home lisinopril 10mg - Home lasix 40mg BID held in CCU. Hold now given slight bump in Cr. #R arm fracture Fracture after ground-level fall 02/06. S/p cast with plan for outpatient follow up. C/o swelling after ortho recast while here but neurovascular intact without numbness/tingling/loss of dexterity. Xray arm wit nondisplaced arm fracture. - RUE platform weight bearing - XR 02/26 per Ortho rec to ensure no interval displacement: minimally displaced ulnar styloid process fracture. [facility]. Ortho will also see while on the floor - appreciate recs. #Anemia of Chronic disease Baseline 9-10. 8.0 on day of admission now stable at 7.4. Fe 24, Ferritin 299, TIBC 192, Tsat 13% suggestive of anemia of chronic disease. B12 1886, folate 15.3. - CTM #IBS Current regimen: [id number] - continue Linaclotide #prior DVT Remote, unprovoked. Chronically on Eliquis. S/p DCCV. Resume Eliquis. #OA #DDD Current regimen: Voltaren gel, gabapentin 600mg QID - Lidocaine patches and APAP as needed, gabapentin 600mg BID - If breakthrough pain, can consider fentanyl patch #osteoporosis Currently on alendronate 70mg qWeekly - CTM, held inpt. Will resume outpt. #GERD Home regimen: omeprazole 20mg - PPI #anxiety/depression - Continue Zoloft Code: Full DVT Prophylaxis: Eliquis Diet: 2g Na Dispo: Possible SNF Mikal Barrow MD Internal Medicine PGY-2 03/08/2023 9:30 AM Cosigned by Benjamín Mancuso MD at 03/09/2023 12:33 PM CDT Associated attestation - Benjamín Mancuso MD - 03/09/2023 12:33 PM CDT Attending Documentation I have seen and examined the patient on 03/08/2023. I agree with the findings and plan of care as documented in the resident's/fellow's note. Supplementary Attestation Today, I am treating the patient for orthostasis/AF which is in severe exacerbation, progression, or experiencing treatment side effects as evidenced by amiodarone and persistent dizziness preventingdischarge, as described in the note. Most recent creatinine was 1.22 which was used to continue or change medication dosing The patient is being intensively monitored for drug toxicity from amiodarone. Benjamín Mancuso MD 03/09/2023 12:27 PM * Ritika Serrano MD - 03/07/2023 2:24 PM CDT Cardiology Daily Progress Note Subjective Interval events - Overnight became dizzy again with HR in 50s, vagal symptoms, gave 500mL bolus and zofran which did not seem to make a difference to the pt. Pt had another episode of dizziness this am and almost fell when ambulating from bed to chair. - Vital 100-130/50-70s, PI16-22m. Positive orthostatics still - Net I/O -730cc with incomplete UOP, wt 179lb from 173 yesterday most likely inaccurate. Objective Vitals: 24hr Min/Max: Temp Min: 36.6 ??C (97.9 ??F) Max: 36.8 ??C (98.2 ??F) Pulse Min: 54 Max: 60 BP Min: 98/50 Max: 134/77 Resp Min: 16 Max: 18 SpO2 Min: 91 % Max: 98 % Most Recent : Vitals: 03/07/23 0904 BP: 134/77 Pulse: Resp: Temp: SpO2: I/O last 3 completed shifts: In: 450 [P.O.:450] Out: 1000 [Urine:1000] Physical Exam: General: Not in distress, appears comfortable HEENT: Normocephalic, no conjunctival pallor, no scleral icterus Cardiac: Normal rate; regular rhythm; audible S1 and S2 without appreciable murmurs, rubs, or gallops; 2+ radial pulses; no LE edema; no JVD nor hepato- jugular reflux Pulm: clear to auscultation bilaterally; no wheezes, rales, or rhonchi GI/Abd: Soft, nontender, nondistended MSK: Normal bulk and tone, no joint effusions or major deformities Skin: No rash or bruises Extremities: minimal pitting edema in BLE Neuro: AAO x 4, CN II-XII grossly intact, moves all extremities spontaneously. HINTS exam (while ptwas not in acute episode) this am showed unidirectional, horizontal nystagmus, positive skew test, and abnormal head impulse test. Myoclonus L >R Notable labs: Cr 1.22 => 1.41 => 1.68 => 2.16 => 2.02 => 1.82 => 1.76 Assessment Tiera Lobato is a 77 y.o. female with a PMH of pAF, Apical variant HCM, CAD with OR in 2013 s/p CABG with LAWSON to LAD and SVG to OM, HTN, DDD,diverticulitis, vertigo, prior DVT, OA who presents as an OSH transfer for AFib with RVR complicated by hemodynamic instability now rate controlled onoral dig / metop /amio found to have MRSA cellulitis and MRSA bacteremia with septic pulmonary emboli on Vanc, currently HDS in NSR mostly s/p DCCV pending dispo. Plan #pAF with RVR s/p DCCV #Dizziness Home regimen: metop 50mg daily. Previously on sotalol 80mg (15d supply last dispensed 02/07/23). TTE02/20 read LVEF 55-60, no valvular dz. S/p DCCV. NSR except reverting back to Afib w RVR on 03/04 iso holding metop due to n/v. Metop briefly started but then discharged iso severe n/v/dizziness/vertigo. Currently in NSR with Amio 400 BID. - Continue with home Eliquis - Continue amiodarone to 400 BID and will discharge on 400 QDy - please give with meals. - Continue with Metop tartrate 25mg PRN for Afib w RVR - Dose reduce Gabapentin to 200 BID on 03/06 (~75% reduction w/ eGFR 25). - Close monitoring on tele. Please call provider if back in Afib - Scheduled to see PILO Ravi at Dr. Stafford's office on Mar 20 # Dizziness # Nausea Developed new nausea and dizziness at rest from 03/01-, managed by Zofran. HINTS exam showed unidirectional, horizontal nystagmus, positive skew test, and abnormal head impulse test, suggesting peripheral rather than central vestibulopathy which is reassuring, although pt was not in acute episode at the time and so might not be valid. Tried Amiodarone with food and at the mean time discontinued Metop, which seemed to be helping, although reverted back to Afib with RVR on 03/04 that resolved with re-initiation of Metop 25. Had n/v/dizziness/headache on 03/05 while on Amio 400 BID and Metop XL 25 with positive orthostatic hypotension. Held Metop XL 25, gave 1L fluids on 03/06 but had three moreepisodes of dizziness or vertigo and positive orthostatic hypotension. Gabapentin was also reduced on given CLAUDIA. Endorsed 15min vertigo 03/07 AM and intermittent dizziness throughout the day. Also noticed jerkiness in L leg when sitting at the edge of the bed. Neuro exam notable for myoclonus L > R, HINTS exam unchanged from prior, no focal neurological exams otherwise. No longer orthostatic hypotensive. Ddx: central neuro lesions vs medication- associated neural toxicity (?amiodarone) vs intolerance of beta blockade. - Appreciate neuro c/s: Meclizine 25 mg q6 PRN; another 500LR bolus #CLAUDIA on CKD 3a - stable Per chart review. Baseline Cr ~0.9. Cr 1.22 => 1.41 => 1.68 => 2.16 => 2.02 iso restarting home lasix 40 BID and recent IV vanc (last dose supratherapeutic). - Euvolemic on exam. Hold lasix for now - Ordered UA with microscopy, Juany, UCr - Repeat orthostatics - Can resume with 40mg daily when CLAUDIA resolves #R rib pain #Hip pain New yesterday am, reproducible on exam. Now resolved with Lidocaine patch. - Continue with lidocaine patches #MRSA cellulitis #MRSA bacteremia #Septic pulmonary emboli Positive cultures 02/14, but started empirically on vanc 02/12. In house read of OSH CT CAP with septic emboli in lungs, confirmed on repeat this admission. 02/20 Bcx+ within 24 hours MRSE 1/2 bottles, likely contaminant. TTE 02/20 read LVEF 55- 60, no valvular dz or vegetations. 02/20 LUE ultrasound with cellulitis with underlying myositis and small non-drainable fluid collection, verified by CT LUE without osteomyelitis. 02/20 ACCS c/s rec nonoperative. L PICC placed after initial + Bcx, okay to leave in per ID for Vanc course. 02/20 Bcx+ MRSE 1/2 bottles likely contaminant. - ID c/s with recs Abx x4 weeks: Vanc 4 weeks end (02/12-03/03) => PO Linezolid 600mg BID (03/03-03/16) #HTN #HLD #CAD c/b OR s/p CABG #apical HCM No indication for triple therapy AC/antiplatelet at this time. Lipid panel with LDL 37, A1c 5.4. Home HTN regimen: lisinopril 10mg. - Atorvastatin 80, Zetia, Plavix - Hold ASA given AC. - Continue to hold home lisinopril 10mg - Home lasix 40mg BID held in CCU. Hold now given slight bump in Cr. #R arm fracture Fracture after ground-level fall 02/06. S/p cast with plan for outpatient follow up. C/o swelling after ortho recast while here but neurovascular intact without numbness/tingling/loss of dexterity. Xray arm wit nondisplaced arm fracture. - RUE platform weight bearing - XR 02/26 per Ortho rec to ensure no interval displacement: minimally displaced ulnar styloid process fracture. [facility] Ortho will also see while on the floor - appreciate recs. #Anemia of Chronic disease Baseline 9-10. 8.0 on day of admission now stable at 7.4. Fe 24, Ferritin 299, TIBC 192, Tsat 13% suggestive of anemia of chronic disease. B12 1886, folate 15.3. - CTM #IBS Current regimen: [id number] - continue Linaclotide #prior DVT Remote, unprovoked. Chronically on Eliquis. S/p DCCV. Resume Eliquis. #OA #DDD Current regimen: Voltaren gel, gabapentin 600mg QID - Lidocaine patches and APAP as needed, gabapentin 600mg BID - If breakthrough pain, can consider fentanyl patch #osteoporosis Currently on alendronate 70mg qWeekly - CTM, held inpt. Will resume outpt. #GERD Home regimen: omeprazole 20mg - PPI #anxiety/depression - Continue Zoloft Code: Full DVT Prophylaxis: Eliquis Diet: 2g Na Dispo: Possible SNF Ritika Serrano MD PhD Internal Medicine PGY-1 03/07/2023 2:24 PM Cosigned by Benjamín Mancsuo MD at 03/07/2023 6:46 PM CDT Associated attestation - Benjamín Mancuso MD - 03/07/2023 6:46 PM CDT I have seen and examined the patient on 03/07/23. I agree with the findings and plan of care as documented in the resident's/fellow's note.. * Eric Mariam, PT - 03/07/2023 8:50 AM CDT Physical Therapy Physical Therapy Progress Note NOTE: This is a summary note of the martinez components of the treatment session. For full details, review chart for all flowsheets documented on by this physical therapy clinician on this date. Vital signs documented in vital signs flowsheet. Care plan progress documented in Care Plan Activity. For questions, please review the treatment team and contact the PT or ASSISTANT TECHNICIAN currently assigned to this patient. If a physical therapy clinician is not assigned to this patient, please call [phone]. 03/07/23 0850 PT Last Visit Session Type Treatment PT Received On 03/07/23 Safe Environment Arm band checked;Patient found in supine;Gait belt utilized for all out of bed mobility Subjective Agreeable to Therapy Subjective Comment I'm not feeling too good today, but I'll try Family/Caregiver Present No Precautions Precautions Fall risk RUE Weight Bearing NWB Pain Assessment Pain Assessment No/denies pain Cognition Orientation Oriented X4 (person, place, time, situation) Balance Balance Yes Static Sitting Balance Static Sitting-Balance Support Left upper extremity supported;Feet supported Static Sitting-Sitting Surface Bed Static Sitting-Level of Assistance Close supervision Static Sitting-Comment/# of Minutes supervision for safety with Static Standing Balance Static Standing-Balance Support Bilateral upper extremity supported (with platform walker) Static Standing-Standing Surface Floor Static Standing-Level of Assistance Close supervision Static Standing-Comment/# of Minutes for safety Bed Mobility 1 Bed Mobility From 1 Supine Bed Mobility Type 1 To Bed Mobility to 1 Edge of bed Level of Assistance 1 Minimum Assist Bed Mobility Comments 1 min assist for lifting the trunk and shift the hips to EOB Transfer 1 Transfer From 1 Sit Transfer Type 1 To and from Transfer to 1 Stand Technique 1 Sit to stand;Stand to sit Transfer Device 1 Wheeled walker;Reverse walker (with platform attachment on the R) Transfer Level of Assistance 1 Contact Guard Assist Trials/Comments 1 contact guard for balance Ambulation Ambulation Yes Ambulation 1 Distance (ft) 1 87 Surface 1 Level tile Device 1 Wheeled walker (with platform attachment on the R) Assistance 1 Contact Guard Assist Gait: Requires assist with 1 Maintaining balance Gait: Requires verbal cues to 1 Use assistive device safely;Prevent bumping into environmental barriers (oliveira/furniture) Gait Deviations 1 Turns - difficulty;Step length - decreased Ambulation Comments 1 Pt with contact guard for safety during ambulation. Cues for turning with platform walker Other Comments Other PT Comments Pt mildly orthostatic upon sitting, BP returned to WNL after 2 minutes of sittingEOB with supervision. Symptoms of dizziness resolved upon rest break. See vitals flowsheet for further information Basic Mobility - 6 Click How much difficulty does the patient have: Turning over in bed 4 How much difficulty does the patient currently have: Sitting down and standing up from a chair witharms? 3 How much difficulty does the patient have: Moving from lying on back to sitting on the side of the bed? 3 How much difficulty does the patient have: Moving to and from a bed to a chair including wheelchair? 3 How much help does the patient currently need: Walk in hospital room? 3 How much help from another person does the patient currently need: Climbing 3-5 steps with a railing? 3 Total 6 Click Score (range 6-24) 19 Score Interpretation 42.48 Safe Environment End of Therapy Session Safe Environment End of Therapy Session Patient left in recliner;Chair alarm in place and activated;RN notified;Call light within reach;Overbed table within reach Assessment Prognosis Good Barriers to Discharge Current Mobility Status Plan Plan Continue with current plan;If this is the last note, consider this the discharge summary Recommendation/Plan Progress during current admission Progressing toward goals PT - Next Appointment 03/10/23 Multi-Disciplinary Problems (from Physical Therapy) Active Problems Problem: Mobility Start Date: 02/20/23 Goal Start Date Expected End Date End Date STG - Patient will ambulate 02/20/23 03/10/23 -- Goal Details: 250 ft, SBA, WW Problem: Transfers Start Date: 02/20/23 Goal Start Date Expected End Date End Date STG - Patient will perform bed mobility 02/20/23 03/10/23 -- Goal Details: IND Goal Start Date Expected End Date End Date STG - Patient will transfer sit to and from stand 02/20/23 03/10/23 -- Goal Details: SBA, WW Problem: PT Misc Start Date: 02/20/23 Goal Start Date Expected End Date End Date PT STG - Misc 1 02/20/23 03/10/23 -- Goal Details: Patient and caregivers will participate in and demonstrate understanding of therapeutic exercise and safe mobility strategies to improve independence with functional mobility. * Brittney Roth, OT - 03/06/2023 2:37 PM CDT Occupational Therapy Occupational Therapy Progress Note NOTE: This is a summary note of the martinez components of the treatment session. For full details, review chart for all flowsheets documented on by this occupational therapy clinician on this date. Vitalsigns documented in vital signs flowsheet. Care plan progress documented in Care Plan Activity. For questions, please review the treatment team and contact the occupational therapist currently assigned to this patient. If an occupational therapist is not assigned to this patient, please call [phone]. 03/06/23 1430 General Session Type Treatment OT Received On 03/06/23 Safe Environment Arm band checked;Patient found in supine;Gait belt utilized for all out of bed mobility Subjective Agreeable to Therapy Family/Caregiver Present Yes Precautions Precautions Fall risk Weight Bearing Restrictions Yes RUE Weight Bearing NWB (okay for platform WB through elbow) Precaution Comments Pt demo adherence to precautions with min cues throughout session. PPE worn by therapist: gloves, gown, surgical mask. Pain Assessment Pain Assessment No/denies pain Balance Balance Yes Static Sitting Balance Static Sitting-Balance Support No upper extremity supported Static Sitting-Sitting Surface Bed Static Sitting-Level of Assistance Distant supervision Static Sitting-Comment/# of Minutes safety Dynamic Sitting Balance Dynamic Sitting-Balance Support No upper extremity supported Dynamic Sitting-Balance Forward lean;Reaching for objects Dynamic Sitting-Sitting Surface (toilet) Dynamic Sitting-Level of Assistance Close supervision Dynamic Sitting-Comments safety Static Standing Balance Static Standing-Balance Support Unilateral upper extremity supported Static Standing-Standing Surface Floor Static Standing-Level of Assistance Contact guard Static Standing-Comment/# of Minutes safety Dynamic Standing Balance Dynamic Standing-Balance Support No upper extremity supported Dynamic Standing-Balance Forward lean;Reaching for objects Dynamic Standing-Standing Surface Floor Dynamic Standing-Level of Assistance Minimum assistance Dynamic Standing-Comments min assist to maintain balance during ADL task ADL ADLS (WDL) X Toileting Toileting: Where assessed Toilet Toileting: Level of assistance Minimum Assist Toileting: Assistance with Clothing management up Bed Mobility Bed Mobility Yes Bed Mobility 1 Bed Mobility From 1 Supine Bed Mobility Type 1 To Bed Mobility to 1 Edge of bed Level of Assistance 1 Minimum Assist Bed Mobility Comments 1 min assist for RLE management and adjusting hips towards EOB Transfers Transfer Yes Transfer 1 Transfer From 1 Toilet Transfer Type 1 To Transfer to 1 Chair with arms Technique 1 Ambulation Transfer Device 1 Hand held assist Transfer Level of Assistance 1 Minimum Assist Toilet Transfers Toilet Transfer From Bed Toilet Transfer Type To Toilet Transfer to Standard toilet Toilet Transfer Technique Ambulating Toilet Transfer: Equipment No device;Hand hold Toilet Transfers Minimal assistance Toilet Transfers Comments min assist for force production and min assist for balance during functional mobility to/from bathroom Cognition Arousal/Alertness Alert Attention Span Appears intact Current communication Appears Intact Orientation Oriented X4 (person, place, time, situation) Following Commands Follows all commands and directions without difficulty Safety Judgment Good awareness of safety precautions Awareness of Errors Assistance required to identify errors made Insight Decreased awareness of deficits Problem Solving Assistance required to identify errors made Compliance/Behavior Easy to engage Other Comments Comments Pt participates in treatment session this date focused on ADL completion and functional mobility. Pt is motivated to participate and receptive to all education this date. Pt with dizziness with positional changes, BP stable (see vitals flowsheet for details). Pt would continue to benefit from skilled OT intervention to support return to PLOF. Daily Activity - 6 Clicks Putting on and taking off regular lower body clothing 2 Bathing 3 Toileting 3 Putting on and taking off upper body clothing 3 Personal Grooming 3 Eating Meals 4 Total Score (range 6-24) 18 Score Interpretation 38.66 Safe Environment End of Therapy Session Safe Environment End of Therapy Session Patient left in recliner;RN notified;Call light within reach;Overbed table within reach (family member in room) Assessment Problem List Decreased ADL independence;Decreased IADL independence;Decreased functional mobility;Decreased balance;Decreased endurance;Decreased UE function Barriers to Discharge Current Mobility Status (impaired ADL performance) Barrier Comments fall risk Plan Plan Continue with current plan;If this is the last note, consider this the discharge summary Recommendation/Plan OT Recommendation Inpatient Rehab Facility Patient at high risk for Falls;Readmission;Injury due to decreased ability to care for self;Injury due to reduced functional status;Injury due to balance deficits;Injury at home as patient has not returned to prior level of function Recommend Inpatient Rehab/Acute Rehab due to Ability to actively participate in intensive therapy 3hours/day, 5 days/week or 900 minutes per week;Highly motivated to participate in therapy;Not at baseline due to impaired ability to complete ADLs;Impaired ability to complete functional mobility;Likely to return to the community at discharge with support system in place;Requires greater than 25% physical assistance with most ADL tasks;Requires greater than 25% physical assistance with most mobility tasks;Requires multiple therapy disciplines to address functional deficits OT Frequency during current admission 3-5x/wk Treatment/Interventions during current admission ADL/IADL retraining;Balance Training;Bed mobility;Endurance training;Functional activity;Functional mobility training;Strengthening;Therapeutic activity Progress during current admission Progressing toward goals OT - Next Appointment 03/07/23 Multi-Disciplinary Problems (from Occupational Therapy) Active Problems Problem: Dressings Lower Extremities Start Date: 02/24/23 Goal Start Date Expected End Date End Date STG - Patient to complete lower body dressing 02/24/23 03/14/23 -- Goal Details: With supervision Problem: Dressing Upper Extremities Start Date: 02/24/23 Goal Start Date Expected End Date End Date STG - Patient will dress upper body 02/24/23 03/14/23 -- Goal Details: With supervision Problem: Grooming Start Date: 02/24/23 Goal Start Date Expected End Date End Date STG - Patient will complete grooming 02/24/23 03/14/23 -- Goal Details: in standing at bathroom sink with supervision Problem: Toileting Start Date: 02/24/23 Goal Start Date Expected End Date End Date STG - Patient will complete toileting tasks with 02/24/23 03/14/23 -- Goal Details: supervision Problem: Transfers Start Date: 02/24/23 Goal Start Date Expected End Date End Date STG - Patient will perform toilet transfer 02/24/23 03/14/23 -- Goal Details: to toilet in bathroom with supervision Problem: OT Misc Start Date: 02/24/23 Goal Start Date Expected End Date End Date OT LTG - Misc 1 02/24/23 03/20/23 -- Goal Details: Pt will complete ADLs with independence. * Ritika Serrano MD - 03/06/2023 6:11 AM CDT Cardiology Daily Progress Note Subjective Interval events - Overnight became dizzy again with HR in 50s, vagal symptoms, gave 500mL bolus and zofran which did not seem to make a difference to the pt. Pt had another episode of dizziness this am and almost fell when ambulating from bed to chair. - Vital 90-110/40-50s, [id number] - Net I/O +100cc with incomplete UOP, wt 173lb from 189 yesterday most likely inaccurate. Objective Vitals: 24hr Min/Max: Temp Min: 36.4 ??C (97.5 ??F) Max: 36.7 ??C (98.1 ??F) Pulse Min: 54 Max: 59 BP Min: 91/50 Max: 113/57 Resp Min: 16 Max: 18 SpO2 Min: 93 % Max: 97 % Most Recent : Vitals: 03/06/23 0315 BP: 101/49 Pulse: 56 Resp: Temp: SpO2: I/O last 3 completed shifts: In: 420 [P.O.:420] Out: - Physical Exam: General: Not in distress, appears comfortable HEENT: Normocephalic, no conjunctival pallor, no scleral icterus Cardiac: Normal rate; regular rhythm; audible S1 and S2 without appreciable murmurs, rubs, or gallops; 2+ radial pulses; no LE edema; no JVD nor hepato- jugular reflux Pulm: clear to auscultation bilaterally; no wheezes, rales, or rhonchi GI/Abd: Soft, nontender, nondistended MSK: Normal bulk and tone, no joint effusions or major deformities Skin: No rash or bruises Extremities: minimal pitting edema in BLE Neuro: AAO x 4, CN II-XII grossly intact, moves all extremities spontaneously. HINTS exam (while ptwas not in acute episode) this am showed unidirectional, horizontal nystagmus, negative skew test, and abnormal head impulse test. Notable labs: Cr 1.22 => 1.41 => 1.68 => 2.16 => 2.02 Assessment Tiera Lobato is a 77 y.o. female with a PMH of pAF, Apical variant HCM, CAD with OR in 2013 s/p CABG with LAWSON to LAD and SVG to OM, HTN, DDD,diverticulitis, vertigo, prior DVT, OA who presents as an OSH transfer for AFib with RVR complicated by hemodynamic instability now rate controlled onoral dig / metop /amio found to have MRSA cellulitis and MRSA bacteremia with septic pulmonary emboli on Vanc, currently HDS in NSR mostly s/p DCCV pending dispo. Plan #pAF with RVR s/p DCCV #Dizziness Home regimen: metop 50mg daily. Previously on sotalol 80mg (15d supply last dispensed 02/07/23). TTE02/20 read LVEF 55-60, no valvular dz. S/p DCCV. Developed new nausea and dizziness at rest from 03/01-, managed by Zofran. HINTS exam showed unidirectional, horizontal nystagmus, negative skew test, and abnormal head impulse test, suggesting peripheral rather than central vestibulopathy which is reassuring, although pt was not in acute episode at the time and so might not be valid. Nausea could be related to Amiodarone intolerance. Tried Amiodarone with food and at the mean time discontinued Metop, which seemed to be helping, although reverted back to Afib with RVR on 03/04 that resolved with re- initiation of Metop 25. Had n/v/dizziness/headache on 03/05 while on Amio 400 BID with positive orthostatic hypotension. Had two more episodes of dizziness since then. Could possibly be contributed by hypovelemia iso CLAUDIA vs drug toxicity (gabapentin iso CLAUDIA) - Continue with home Eliquis - Continue amiodarone to 400 BID and will discharge on 400 QDy - please give with meals. - Continue with Metop tartrate 25mg PRN for Afib w RVR - Dose reduce Gabapentin to 200 BID (~75% reduction w/ eGFR 25). - Close monitoring on tele. Please call provider if back in Afib - Scheduled to see PILO Ravi at Dr. Stafford's office on Mar 20 #CLAUDIA on CKD 3a - stable Per chart review. Baseline Cr ~0.9. Cr 1.22 => 1.41 => 1.68 => 2.16 => 2.02 iso restarting home lasix 40 BID and recent IV vanc (last dose supratherapeutic). - Euvolemic on exam. Hold lasix for now - Ordered UA with microscopy, Juany, UCr - Repeat orthostatics - Can resume with 40mg daily when CLAUDIA resolves #R rib pain #Hip pain New yesterday am, reproducible on exam. Now resolved with Lidocaine patch. - Continue with lidocaine patches #MRSA cellulitis #MRSA bacteremia #Septic pulmonary emboli Positive cultures 02/14, but started empirically on vanc 02/12. In house read of OSH CT CAP with septic emboli in lungs, confirmed on repeat this admission. 02/20 Bcx+ within 24 hours MRSE 1/2 bottles, likely contaminant. TTE 02/20 read LVEF 55- 60, no valvular dz or vegetations. 02/20 LUE ultrasound with cellulitis with underlying myositis and small non-drainable fluid collection, verified by CT LUE without osteomyelitis. 02/20 ACCS c/s rec nonoperative. L PICC placed after initial + Bcx, okay to leave inper ID for Vanc course. 02/20 Bcx+ MRSE 1/2 bottles likely contaminant. - ID c/s with recs Abx x4 weeks: Vanc 4 weeks end (02/12-03/03) => PO Linezolid 600mg BID (03/03-03/16) #HTN #HLD #CAD c/b OR s/p CABG #apical HCM No indication for triple therapy AC/antiplatelet at this time. Lipid panel with LDL 37, A1c 5.4. Home HTN regimen: lisinopril 10mg. - Atorvastatin 80, Zetia, Plavix - Hold ASA given AC. - Continue to hold home lisinopril 10mg - Home lasix 40mg BID held in CCU. Hold now given slight bump in Cr. #R arm fracture Fracture after ground-level fall 02/06. S/p cast with plan for outpatient follow up. C/o swelling after ortho recast while here but neurovascular intact without numbness/tingling/loss of dexterity. Xray arm wit nondisplaced arm fracture. - RUE platform weight bearing - XR 02/26 per Ortho rec to ensure no interval displacement: minimally displaced ulnar styloid process fracture. [facility]. Ortho will also see while on the floor - appreciate recs. #Anemia of Chronic disease Baseline 9-10. 8.0 on day of admission now stable at 7.4. Fe 24, Ferritin 299, TIBC 192, Tsat 13% suggestive of anemia of chronic disease. B12 1886, folate 15.3. - CTM #IBS Current regimen: [id number] - continue Linaclotide #prior DVT Remote, unprovoked. Chronically on Eliquis. S/p DCCV. Resume Eliquis. #OA #DDD Current regimen: Voltaren gel, gabapentin 600mg QID - Lidocaine patches and APAP as needed, gabapentin 600mg BID - If breakthrough pain, can consider fentanyl patch #osteoporosis Currently on alendronate 70mg qWeekly - CTM, held inpt. Will resume outpt. #GERD Home regimen: omeprazole 20mg - PPI #anxiety/depression - Continue Zoloft Code: Full DVT Prophylaxis: Eliquis Diet: 2g Na Dispo: Possible SNF Ritika Serrano MD PhD Internal Medicine PGY-1 03/06/2023 6:11 AM Cosigned by Benjamín Mancuso MD at 03/07/2023 6:45 PM CDT Associated attestation - Benjamín Mancuso MD - 03/07/2023 6:45 PM CDT I have seen and examined the patient on 03/06/2023. I agree with the findings and plan of care as documented in the resident's/fellow's note.. * Ritika Serrano MD - 03/05/2023 10:32 AM CDT Cardiology Daily Progress Note Subjective Interval events - Had an episode of lightheaded, nausea, seeing stars, and headache for a min when ambulating to bathroom this am. Orthostatic hypotension was positive (sitting 90/54 HR 65 standing 82/40 HR 73). Nausea resolved after PO zofran x 1. Denied CP, heart palpitation. - Vital 90-11/60-70, [id number] - Net I/O +320cc, wt 170lb from 189 yesterday most likely inaccurate. Objective Vitals: 24hr Min/Max: Temp Min: 36.4 ??C (97.5 ??F) Max: 36.7 ??C (98.1 ??F) Pulse Min: 57 Max: 61 BP Min: 91/47 Max: 113/57 Resp Min: 16 Max: 18 SpO2 Min: 93 % Max: 97 % Most Recent : Vitals: 03/05/23 1000 BP: (!) 94/43 Pulse: Resp: Temp: SpO2: I/O last 3 completed shifts: In: 380 [P.O.:380] Out: - Physical Exam: General: Not in distress, appears comfortable HEENT: Normocephalic, no conjunctival pallor, no scleral icterus Cardiac: Normal rate; regular rhythm; audible S1 and S2 without appreciable murmurs, rubs, or gallops; 2+ radial pulses; no LE edema; no JVD nor hepato- jugular reflux Pulm: clear to auscultation bilaterally; no wheezes, rales, or rhonchi GI/Abd: Soft, nontender, nondistended MSK: Normal bulk and tone, no joint effusions or major deformities Skin: No rash or bruises Extremities: minimal pitting edema in BLE Neuro: AAO x 4, CN II-XII grossly intact, moves all extremities spontaneously. HINTS exam (while ptwas not in acute episode) this am showed unidirectional, horizontal nystagmus, negative skew test, and abnormal head impulse test. Notable labs: Cr 1.22 => 1.41 => 1.68 Assessment Tiera Lobato is a 77 y.o. female with a PMH of pAF, Apical variant HCM, CAD with OR in 2013 s/p CABG with LAWSON to LAD and SVG to OM, HTN, DDD,diverticulitis, vertigo, prior DVT, OA who presents as an OSH transfer for AFib with RVR complicated by hemodynamic instability now rate controlled onoral dig / metop /amio found to have MRSA cellulitis and MRSA bacteremia with septic pulmonary emboli on Vanc, currently HDS in NSR mostly s/p DCCV pending dispo. Plan #pAF with RVR Home regimen: metop 50mg daily. Previously on sotalol 80mg (15d supply last dispensed 02/07/23). TTE02/20 read LVEF 55-60, no valvular dz. S/p DCCV. Developed new nausea and dizziness at rest from 03/01-, managed by Zofran. HINTS exam showed unidirectional, horizontal nystagmus, negative skew test, and abnormal head impulse test, suggesting peripheral rather than central vestibulopathy which is reassuring, although pt was not in acute episode at the time and so might not be valid. Nausea could be related to Amiodarone intolerance. Tried Amiodarone with food and at the mean time discontinued Metop, which seemed to be helping, although reverted back to Afib with RVR on 03/04 that resolved with re- initiation of Metop 25. Had n/v/dizziness/headache on 03/05 while on Amio 400 BID with positive orthostatic hypotension. - Continue with home Eliquis - Continue amiodarone to 400 BID and will discharge on 400 QDy - please give with meals. - hold metop 25XL (already given for today). Change to Metop tartrate 25mg PRN for Afib w RVR - 500 LR bolus - Close monitoring on tele. Please call provider if back in Afib - Scheduled to see KNIFE GLAZER Harpreet Ravi at Dr. Stafford's office on Mar 20 #R rib pain #Hip pain New yesterday am, reproducible on exam. Now resolved with Lidocaine patch. - Continue with lidocaine patches #MRSA cellulitis #MRSA bacteremia #Septic pulmonary emboli Positive cultures 02/14, but started empirically on vanc 02/12. In house read of OSH CT CAP with septic emboli in lungs, confirmed on repeat this admission. 02/20 Bcx+ within 24 hours MRSE 1/2 bottles, likely contaminant. TTE 02/20 read LVEF 55- 60, no valvular dz or vegetations. 02/20 LUE ultrasound with cellulitis with underlying myositis and small non-drainable fluid collection, verified by CT LUE without osteomyelitis. 02/20 ACCS c/s rec nonoperative. L PICC placed after initial + Bcx, okay to leave inper ID for Vanc course. 02/20 Bcx+ MRSE 1/2 bottles likely contaminant. - ID c/s with recs Abx x4 weeks: Vanc 4 weeks end (02/12-03/03) => PO Linezolid 600mg BID (03/03-03/16) #HTN #HLD #CAD c/b OR s/p CABG #apical HCM No indication for triple therapy AC/antiplatelet at this time. Lipid panel with LDL 37, A1c 5.4. Home HTN regimen: lisinopril 10mg. - Atorvastatin 80, Zetia, Plavix - Hold ASA given AC. - Continue to hold home lisinopril 10mg - Home lasix 40mg BID held in CCU. Hold now given slight bump in Cr. #R arm fracture Fracture after ground-level fall 02/06. S/p cast with plan for outpatient follow up. C/o swelling after ortho recast while here but neurovascular intact without numbness/tingling/loss of dexterity. Xray arm wit nondisplaced arm fracture. - RUE platform weight bearing - XR 02/26 per Ortho rec to ensure no interval displacement: minimally displaced ulnar styloid process fracture. [facility] Ortho will also see while on the floor - appreciate recs. #Anemia of Chronic disease Baseline 9-10. 8.0 on day of admission now stable at 7.4. Fe 24, Ferritin 299, TIBC 192, Tsat 13% suggestive of anemia of chronic disease. B12 1886, folate 15.3. - CTM #CLAUDIA on CKD 3a - stable Per chart review. Baseline Cr ~0.9. Cr 1.09 >> 1.28 >> 1.41 iso restarting home lasix 40 BID. - Euvolemic on exam. Hold lasix for now - Can resume with 40mg daily when CLAUDIA resolves #IBS Current regimen: [id number] - continue Linaclotide #prior DVT Remote, unprovoked. Chronically on Eliquis. S/p DCCV. Resume Eliquis. #OA #DDD Current regimen: Voltaren gel, gabapentin 600mg QID - Lidocaine patches and APAP as needed, gabapentin 600mg BID - If breakthrough pain, can consider fentanyl patch #osteoporosis Currently on alendronate 70mg qWeekly - CTM, held inpt. Will resume outpt. #GERD Home regimen: omeprazole 20mg - PPI #anxiety/depression - Continue Zoloft Code: Full DVT Prophylaxis: Eliquis Diet: 2g Na Dispo: Possible SNF Ritika Serrano MD PhD Internal Medicine PGY-1 03/05/2023 10:32 AM Cosigned by Benjamín Mancuso MD at 03/07/2023 6:45 PM CDT Associated attestation - Benjamín Mancuso MD - 03/07/2023 6:45 PM CDT I have seen and examined the patient on 03/05/2023. I agree with the findings and plan of care as documented in the resident's/fellow's note.. * Sheron Mondragon, OT - 03/04/2023 9:40 AM CDT Occupational Therapy 03/04/23 0940 General Session Type Treatment OT Received On 03/04/23 Safe Environment Arm band checked Subjective Agreeable to Therapy Family/Caregiver Present No Precautions Precautions Fall risk Weight Bearing Restrictions Yes RUE Weight Bearing NWB Precaution Comments RUE platform WB ok, maintains well throughout session Pain Assessment Pain Assessment No/denies pain Balance Balance Yes Static Sitting Balance Static Sitting-Balance Support Feet supported;No upper extremity supported Static Sitting-Sitting Surface Bed Static Sitting-Level of Assistance Distant supervision Dynamic Sitting Balance Dynamic Sitting-Balance Support Unilateral upper extremity supported;Feet supported Dynamic Sitting-Balance Forward lean;Lateral lean;Reaching for objects Dynamic Sitting-Sitting Surface Bed Dynamic Sitting-Level of Assistance Distant supervision Dynamic Sitting-Comments safety Static Standing Balance Static Standing-Balance Support Unilateral upper extremity supported Static Standing-Standing Surface Floor Static Standing-Level of Assistance Contact guard ADL ADLS (WDL) X Grooming Grooming: Where assessed Standing at sink Grooming: Level of assistance Contact Guard Assist Grooming: Assistance with Safety (balance at sink) LE Dressing LE Dressing: Where assessed Chair LE Dressing: Level of assistance Moderate Assist LE Dressing: Assistance with Don/doff R sock;Thread RLE into pants;Thread LLE into pants Toileting Toileting: Where assessed Toilet Toileting: Level of assistance Moderate Assist Toileting: Assistance with Perineal hygiene;Clothing management up;Safety (balance) Bed Mobility Bed Mobility Yes Bed Mobility 1 Bed Mobility From 1 Supine Bed Mobility Type 1 To Bed Mobility to 1 Edge of bed Level of Assistance 1 Minimum Assist Bed Mobility Comments 1 to scoot hips fully to edge of bed Transfers Transfer Yes Transfer 1 Transfer From 1 Sit Transfer Type 1 To and from Transfer to 1 Stand Technique 1 Sit to stand Transfer Device 1 Hand held assist Transfer Level of Assistance 1 Contact Guard Assist Transfers 2 Transfer From 2 Bed Transfer Type 2 To Transfer to 2 Chair with arms Technique 2 Ambulation Transfer Device 2 Hand held assist Transfer Level of Assistance 2 Minimum Assist Toilet Transfers Toilet Transfer From Bed Toilet Transfer Type To and from Toilet Transfer to Standard toilet Toilet Transfer Technique Ambulating Toilet Transfer: Equipment Hand hold Toilet Transfers Minimal assistance Cognition Cognition Comments Highly motivated to regain independence Overall Cognitive Status WFL Arousal/Alertness Alert;Appropriate responses to stimuli Attention Span Appears intact;Age appropriate Memory Appears intact Current communication Appears Intact Orientation Oriented X4 (person, place, time, situation) Following Commands Follows all commands and directions without difficulty Safety Judgment Good awareness of safety precautions Insight Fully aware of deficits Compliance/Behavior Easy to engage Daily Activity - 6 Clicks Putting on and taking off regular lower body clothing 2 Bathing 3 Toileting 2 Putting on and taking off upper body clothing 3 Personal Grooming 3 Eating Meals 4 Total Score (range 6-24) 17 Score Interpretation 37.26 Safe Environment End of Therapy Session Safe Environment End of Therapy Session Patient left in recliner;RN notified;Call light within reach;Overbed table within reach Assessment Problem List Decreased upper extremity range of motion;Decreased upper extremity strength;Decreasedendurance;Decreased safe judgment during ADL;Decreased balance;Decreased ADL independence;Decreasedfunctional mobility;Decreased IADL independence Barriers to Discharge Current Mobility Status Barrier Comments fall risk during ADLs Recommendation/Plan OT Recommendation Inpatient Rehab Facility Patient at high risk for Falls;Readmission;Injury due to decreased ability to care for self;Injury due to balance deficits;Improper use of DME;Difficulty maintaining orthopedic restrictions Recommend Inpatient Rehab/Acute Rehab due to Ability to actively participate in intensive therapy 3hours/day, 5 days/week or 900 minutes per week;Highly motivated to participate in therapy;Not at baseline due to impaired ability to complete ADLs;Impaired ability to complete functional mobility;Likely to return to the community at discharge with support system in place;Requires greater than 25% physical assistance with most mobility tasks;Requires multiple therapy disciplines to address functional deficits;Requires greater than 25% physical assistance with most ADL tasks;Requires skilled therapy interventions to address neurological deficits;Patient and caregiver require specialized skilledtraining due to new level of function/diagnosis OT Frequency during current admission 3-5x/wk Treatment/Interventions during current admission ADL/IADL retraining;Balance Training;Bed mobility;Compensatory technique education;Endurance training;Equipment eval/education;Functional activity;Functional mobility training;Functional transfer training;Neuromuscular re-education;Strengthening;Therapeutic activity;Therapeutic exercise;Transfer training Progress during current admission Progressing toward goals OT - Next Appointment 03/05/23 Occupational Therapy Progress Note NOTE: This is a summary note of the martinez components of the treatment session. For full details, review chart for all flowsheets documented on by this occupational therapy clinician on this date. Vitalsigns documented in vital signs flowsheet. Care plan progress documented in Care Plan Activity. For questions, please review the treatment team and contact the occupational therapist currently assigned to this patient. If an occupational therapist is not assigned to this patient, please call [phone]. Multi-Disciplinary Problems (from Occupational Therapy) Active Problems Problem: Dressings Lower Extremities Start Date: 02/24/23 Goal Start Date Expected End Date End Date STG - Patient to complete lower body dressing 02/24/23 02/28/23 -- Goal Details: With supervision Problem: Dressing Upper Extremities Start Date: 02/24/23 Goal Start Date Expected End Date End Date STG - Patient will dress upper body 02/24/23 02/28/23 -- Goal Details: With supervision Problem: Grooming Start Date: 02/24/23 Goal Start Date Expected End Date End Date STG - Patient will complete grooming 02/24/23 02/28/23 -- Goal Details: in standing at bathroom sink with supervision Problem: Toileting Start Date: 02/24/23 Goal Start Date Expected End Date End Date STG - Patient will complete toileting tasks with 02/24/23 02/28/23 -- Goal Details: supervision Problem: Transfers Start Date: 02/24/23 Goal Start Date Expected End Date End Date STG - Patient will perform toilet transfer 02/24/23 02/28/23 -- Goal Details: to toilet in bathroom with supervision Problem: OT [facility] Start Date: 02/24/23 Goal Start Date Expected End Date End Date OT LTG - [facility] 1 02/24/23 02/28/23 -- Goal Details: Pt will complete ADLs with independence. * Ritika Serrano MD - 03/04/2023 6:24 AM CDT Cardiology Daily Progress Note Subjective Interval events - Dizziness and nausea has resolved. Had some back and leg pain early in the morning (around 5). Then went to bathroom and subsequently went into Afib w RVR to 110s at 6am on Tele. EKG at the time confirmed Afib. Pt completely asymptomatic, denied heart palpitation, flushing or dizziness. MAP>65at the time. Metop tartrate 25mg was given. HR continued to be elevated up to 140s but then gradually came down to 60s, followed by a few seconds of conversion pause. Pt subsequently reverted back tosinus rhythm. She was asymptomatic and HDS throughout the whole course. - Net I/O -220cc, wt 189lb fluctuating quite a bit over the last few days (suspecting measurement variability) - overall stable when averaged across the last week Objective Vitals: 24hr Min/Max: Temp Min: 36.5 ??C (97.7 ??F) Max: 36.6 ??C (97.9 ??F) Pulse Min: 56 Max: 72 BP Min: 102/53 Max: 135/62 Resp Min: 16 Max: 18 SpO2 Min: 94 % Max: 100 % Most Recent : Vitals: 03/03/23 2310 BP: 108/49 Pulse: 66 Resp: 18 Temp: 36.5 ??C (97.7 ??F) SpO2: 94% I/O last 3 completed shifts: In: 730 [P.O.:680; I.V.:50] Out: 950 [Urine:950] Physical Exam: General: Not in distress, appears comfortable HEENT: Normocephalic, no conjunctival pallor, no scleral icterus Cardiac: Normal rate; regular rhythm; audible S1 and S2 without appreciable murmurs, rubs, or gallops; 2+ radial pulses; no LE edema; no JVD nor hepato- jugular reflux Pulm: clear to auscultation bilaterally; no wheezes, rales, or rhonchi GI/Abd: Soft, nontender, nondistended MSK: Normal bulk and tone, no joint effusions or major deformities Skin: No rash or bruises Extremities: 1+ pitting edema in BLE Neuro: AAO x 4, CN II-XII grossly intact, moves all extremities spontaneously. HINTS exam (while ptwas not in acute episode) this am showed unidirectional, horizontal nystagmus, negative skew test, and abnormal head impulse test. Notable labs: Cr 1.22 => 1.41 today Assessment Tiera Lobato is a 77 y.o. female with a PMH of pAF, Apical variant HCM, CAD with OR in 2012 s/p CABG with LAWSON to LAD and SVG to OM, HTN, DDD,diverticulitis, vertigo, prior DVT, OA who presents as an OSH transfer for AFib with RVR complicated by hemodynamic instability now rate controlled onoral dig / metop /amio found to have MRSA cellulitis and MRSA bacteremia with septic pulmonary emboli on Vanc, currently HDS in NSR mostly s/p DCCV pending dispo. Plan #pAF with RVR Home regimen: metop 50mg daily. Previously on sotalol 80mg (15d supply last dispensed 02/07/23). TTE02/20 read LVEF 55-60, no valvular dz. S/p DCCV. Developed new nausea and dizziness at rest from 03/01-, managed by Zofran. HINTS exam showed unidirectional, horizontal nystagmus, negative skew test, and abnormal head impulse test, suggesting peripheral rather than central vestibulopathy which is reassuring, although pt was not in acute episode at the time and so might not be valid. Nausea could be related to Amiodarone intolerance. Tried Amiodarone with food and at the mean time discontinued Metop, which seemed to be helping, although reverted back to Afib with RVR this morning that resolved w ith re-initiation of Metop 25 - Continue with home Eliquis - Increased amiodarone to 400 BID and will discharge on 400 QDy - please give with meals. - Start Metoprolol XL 25mg daily - Close monitoring on tele. Please call provider if back in Afib - Scheduled to see PILO Ravi at Dr. Stafford's office on Mar 20 # R rib pain New yesterday am, reproducible on exam. Now resolved with Lidocaine patch. - Continue with lidocaine patch #MRSA cellulitis #MRSA bacteremia #Septic pulmonary emboli Positive cultures 02/14, but started empirically on vanc 02/12. In house read of OSH CT CAP with septic emboli in lungs, confirmed on repeat this admission. 02/20 Bcx+ within 24 hours MRSE 1/2 bottles, likely contaminant. TTE 02/20 read LVEF 55- 60, no valvular dz or vegetations. 02/20 LUE ultrasound with cellulitis with underlying myositis and small non-drainable fluid collection, verified by CT LUE without osteomyelitis. 02/20 ACCS c/s rec nonoperative. L PICC placed after initial + Bcx, okay to leave inper ID for Vanc course. 02/20 Bcx+ MRSE 1/2 bottles likely contaminant. - Continue Vanc with regular vanc trough - ID c/s with recs Abx x4 weeks: Vanc 4 weeks end (02/12-03/03) => PO Linezolid 600mg BID (03/03-03/16) #HTN #HLD #CAD c/b OR s/p CABG #apical HCM No indication for triple therapy AC/antiplatelet at this time. Lipid panel with LDL 37, A1c 5.4. Home HTN regimen: lisinopril 10mg. - Atorvastatin 80, Zetia, Plavix - Hold ASA given AC. - Continue to hold home lisinopril 10mg - Home lasix 40mg BID held in CCU. Hold now given slight bump in Cr. #R arm fracture Fracture after ground-level fall 02/06. S/p cast with plan for outpatient follow up. C/o swelling after ortho recast while here but neurovascular intact without numbness/tingling/loss of dexterity. Xray arm wit nondisplaced arm fracture. - RUE platform weight bearing - XR 02/26 per Ortho rec to ensure no interval displacement: minimally displaced ulnar styloid process fracture. [facility]. Ortho will also see while on the floor - appreciate recs. #Anemia of Chronic disease Baseline 9-10. 8.0 on day of admission now stable at 7.4. Fe 24, Ferritin 299, TIBC 192, Tsat 13% suggestive of anemia of chronic disease. B12 1886, folate 15.3. - CTM #CLAUDIA on CKD 3a - stable Per chart review. Baseline Cr ~0.9. Cr 1.09 >> 1.28 >> 1.41 iso restarting home lasix 40 BID. - Euvolemic on exam. Hold lasix for now - Can resume with 40mg daily when CLAUDIA resolves #IBS Current regimen: [id number] - continue Linaclotide #prior DVT Remote, unprovoked. Chronically on Eliquis. S/p DCCV. Resume Eliquis. #OA #DDD Current regimen: Voltaren gel, gabapentin 600mg QID - Lidocaine patches and APAP as needed, gabapentin 600mg BID - If breakthrough pain, can consider fentanyl patch #osteoporosis Currently on alendronate 70mg qWeekly - CTM, held inpt. Will resume outpt. #GERD Home regimen: omeprazole 20mg - PPI #anxiety/depression - Continue Zoloft Code: Full DVT Prophylaxis: Eliquis Diet: 2g Na Dispo: Possible SNF Ritika Serrano MD PhD Internal Medicine PGY-1 03/04/2023 6:24 AM Cosigned by Benjamín Mancuso MD at 03/07/2023 6:45 PM CDT Associated attestation - Benjamín Mancuso MD - 03/07/2023 6:45 PM CDT I have seen and examined the patient on 03/04/2023. I agree with the findings and plan of care as documented in the resident's/fellow's note.. * Jenna Soto RD - 03/03/2023 1:58 PM CDT Nutrition Screen Note Pt. Screened for nutritional assessment secondary to Follow up Pt. Screened for nutritional assessment secondary to LOS. Pt with PMH of pAF, Apical variant HCM, CAD with OR in 2013 s/p CABG with LAWSON to LAD and SVG to OM, HTN, DDD,diverticulitis, vertigo, prior DVT, OA who presents as an OSH transfer for AFib with RVR complicated by hemodynamic instability nowrate controlled on oral dig / metop /amio also found to have MRSA cellulitis and MRSA bacteremia with septic pulmonary emboli on Vanc. Past Medical History: Diagnosis Date Acid reflux Heart murmur High cholesterol History of blood clots 1960s in leg as teenager - had phlebitis History of OR (myocardial infarction) 2012 History of vertebral fracture 2017 HTN (hypertension) IBS (irritable bowel syndrome) Vertigo Past Surgical History: Procedure Laterality Date COLON SURGERY 1992 Repair burst colon CORONARY ARTERY BYPASS GRAFT 2012 Double by-pass - [facility] FLUORO GUIDED INJECTION HIP RIGHT Right 05/16/2022 FLUORO GUIDED INJECTION HIP RIGHT Right 08/15/2022 FLUORO GUIDED INJECTION HIP RIGHT Right 12/10/[address] James ([place], [place]) TOTAL KNEE ARTHROPLASTY Right 2018 Anthropometrics Weight: 83.2 kg (183 lb 6.8 oz) Admission Weight : 89.1 kg Weight Change: -3.90 kg (-8.59 lbs) IBW/kg (Calculated) : 54.4 kg Height: 162.6 cm (5' 4 ) Weight in (lb) to have BMI = 25: 145.3 BMI (Calculated): 31.5 Dietary Orders (From admission, onward) Start Ordered 02/26/23 1250 Adult Diet Restricted; 2 GM Sodium Diet effective now Question Answer Comment ([facility]) Diet type Restricted Fat / Sodium Restriction: 2 GM Sodium 02/26/23 1250 Assessment / Impression: Pt reports appetite is better, states no N/V/D, bowel movement today and no weight changes. Documented po intakes appear fairly good, continue to follow. Jenna Soto MS, RD, LD [phone] * Suki Francisco, PT - 03/03/2023 9:28 AM CDT Physical Therapy Physical Therapy Progress Note NOTE: This is a summary note of the martinez components of the treatment session. For full details, review chart for all flowsheets documented on by this physical therapy clinician on this date. Vital signs documented in vital signs flowsheet. Care plan progress documented in Care Plan Activity. For questions, please review the treatment team and contact the PT or ASSISTANT TECHNICIAN currently assigned to this patient. If a physical therapy clinician is not assigned to this patient, please call [phone]. 03/03/23 0961 PT Last Visit Session Type Treatment PT Received On 03/03/23 Safe Environment Arm band checked;Patient found in supine Subjective Agreeable to Therapy Family/Caregiver Present No Precautions Precautions Fall risk Weight Bearing Restrictions Yes RUE Weight Bearing NWB Precaution Comments Pt. maintains NWB on R UE Activity Tolerance Activity Tolerance Comments ISAAK: Moderate Pain Assessment Pain Assessment No/denies pain Cognition Arousal/Alertness Alert;Appropriate responses to stimuli Orientation Oriented X4 (person, place, time, situation) Following Commands Follows all commands and directions without difficulty Compliance/Behavior Easy to engage Balance Balance Yes Static Sitting Balance Static Sitting-Balance Support Feet supported;No upper extremity supported Static Sitting-Sitting Surface Bed Static Sitting-Level of Assistance Distant supervision Static Sitting-Comment/# of Minutes safety 2/2 dizziness Static Standing Balance Static Standing-Balance Support Bilateral upper extremity supported Static Standing-Standing Surface Floor Static Standing-Level of Assistance Contact guard Static Standing-Comment/# of Minutes with WW and PF attachment Bed Mobility Bed Mobility Yes Bed Mobility 1 Bed Mobility From 1 Supine Bed Mobility Type 1 To Bed Mobility to 1 Edge of bed Level of Assistance 1 Minimum Assist Bed Mobility Comments 1 Min A for force production and positioning Transfers Transfer Yes Transfer 1 Transfer From 1 Sit Transfer Type 1 To and from Transfer to 1 Stand Technique 1 Sit to stand;Stand to sit Transfer Device 1 Hand held assist Transfer Level of Assistance 1 Minimum Assist Trials/Comments 1 Min A for balance and force production Transfers 2 Transfer From 2 Bed Transfer Type 2 To Transfer to 2 Chair with arms Technique 2 Stand and step Transfer Device 2 Hand held assist Transfer Level of Assistance 2 Minimum Assist Trials/Comments 2 Min A for balance and weight shifting Ambulation Ambulation Yes Ambulation 1 Distance (ft) 1 94 Surface 1 Level tile Device 1 Wheeled walker;Platform attachment right Assistance 1 Minimum Assist Gait: Requires assist with 1 Maintaining balance Gait: Requires verbal cues to 1 Pace activity Gait Deviations 1 Roma - decreased;Step length - decreased Ambulation Comments 1 Pt. walks without rest; Min A for balance. R UE platform attachment used Stairs Stairs No Other Comments Other PT Comments VSS and no reports of dizziness with mobility Basic Mobility - 6 Click How much difficulty does the patient have: Turning over in bed 3 How much difficulty does the patient currently have: Sitting down and standing up from a chair witharms? 3 How much difficulty does the patient have: Moving from lying on back to sitting on the side of the bed? 3 How much difficulty does the patient have: Moving to and from a bed to a chair including wheelchair? 3 How much help does the patient currently need: Walk in hospital room? 3 How much help from another person does the patient currently need: Climbing 3-5 steps with a railing? 2 Total 6 Click Score (range 6-24) 17 Score Interpretation 39.67 Safe Environment End of Therapy Session Safe Environment End of Therapy Session Patient left in chair;RN notified;Call light within reach Assessment Prognosis Good Problem List Gait deviations;Decreased strength;Decreased endurance;Impaired balance Plan Plan Continue with current plan;If this is the last note, consider this the discharge summary Recommendation/Plan PT Recommendation/Plan Inpatient Rehab Facility PT Frequency during current admission 3-5x/wk Treatment/Interventions during current admission Balance Training;Bed mobility;Gait training;Functional transfer training;Endurance training PT Equipment Recommended Wheeled walker (platform attachment) Progress during current admission Progressing toward goals PT - Next Appointment 03/05/23 Multi-Disciplinary Problems (from Physical Therapy) Active Problems Problem: Mobility Start Date: 02/20/23 Goal Start Date Expected End Date End Date STG - Patient will ambulate 02/20/23 03/10/23 -- Goal Details: 250 ft, SBA, WW Problem: Transfers Start Date: 02/20/23 Goal Start Date Expected End Date End Date STG - Patient will perform bed mobility 02/20/23 03/10/23 -- Goal Details: IND Goal Start Date Expected End Date End Date STG - Patient will transfer sit to and from stand 02/20/23 03/10/23 -- Goal Details: SBA, WW Problem: PT Misc Start Date: 02/20/23 Goal Start Date Expected End Date End Date PT STG - Misc 1 02/20/23 03/10/23 -- Goal Details: Patient and caregivers will participate in and demonstrate understanding of therapeutic exercise and safe mobility strategies to improve independence with functional mobility. * Ritika Serrano MD - 03/03/2023 8:38 AM CDT Cardiology Daily Progress Note Subjective Interval events - Dizziness and nausea has improved. Now endorsing abd/R chest pain associated with deep breathing.Denied CP or lightheadedness. CP reproducible on exam. EKG showed no acute changes. - Sinus rhythm at 50-60s on EKG and Tele with u wave vs atrial bigeminy vs blocked pac - Labs notable for Cr 1.28 from 1.09. Am lasix held with repeat BMP ordered this pm. Objective Vitals: 24hr Min/Max: Temp Min: 36.5 ??C (97.7 ??F) Max: 37.1 ??C (98.8 ??F) Pulse Min: 49 Max: 59 BP Min: 102/50 Max: 133/55 Resp Min: 18 Max: 20 SpO2 Min: 95 % Max: 98 % Most Recent : Vitals: 03/02/23 2301 BP: 113/52 Pulse: 54 Resp: 20 Temp: 36.5 ??C (97.7 ??F) SpO2: 95% I/O last 3 completed shifts: In: 570 [P.O.:520; I.V.:50] Out: 1450 [Urine:1450] Physical Exam: General: Not in distress, appears comfortable HEENT: Normocephalic, no conjunctival pallor, no scleral icterus Cardiac: Normal rate; regular rhythm; audible S1 and S2 without appreciable murmurs, rubs, or gallops; 2+ radial pulses; no LE edema; no JVD nor hepato- jugular reflux Pulm: clear to auscultation bilaterally; no wheezes, rales, or rhonchi GI/Abd: Soft, nontender, nondistended MSK: Normal bulk and tone, no joint effusions or major deformities Skin: No rash or bruises Extremities: 1+ pitting edema in BLE Neuro: AAO x 4, CN II-XII grossly intact, moves all extremities spontaneously. HINTS exam (while ptwas not in acute episode) this am showed unidirectional, horizontal nystagmus, negative skew test, and abnormal head impulse test. Assessment Tiera Lobato is a 77 y.o. female with a PMH of pAF, Apical variant HCM, CAD with OR in 2012 s/p CABG with LAWSON to LAD and SVG to OM, HTN, DDD,diverticulitis, vertigo, prior DVT, OA who presents as an OSH transfer for AFib with RVR complicated by hemodynamic instability now rate controlled onoral dig / metop /amio found to have MRSA cellulitis and MRSA bacteremia with septic pulmonary emboli on Vanc, currently HDS in NSR s/p DCCV pending dispo. Plan #pAF with RVR Home regimen: metop 50mg daily. Previously on sotalol 80mg (15d supply last dispensed 02/07/23). TTE02/20 read LVEF 55-60, no valvular dz. S/p DCCV. Developed new nausea and dizziness at rest from 03/01-, managed by Zofran. HINTS exam showed unidirectional, horizontal nystagmus, negative skew test, and abnormal head impulse test, suggesting peripheral rather than central vestibulopathy which is reassuring, although pt was not in acute episode at the time and so might not be valid. Nausea could be related to Amiodarone intolerance. Tried Amiodarone with food and at the mean time discontinued Metop, which seemed to be helping. - Continue with home Eliquis - Oral amiodarone 200mg daily - please give with meals. - Metoprolol tartrate 50mg BID => 25mg BID (03/01) due to dizziness. Discontinue Metop today - Scheduled to see PILO Ravi at Dr. Stafford's office on Mar 20 # R rib pain New this am, reproducible on exam. - Will try lidocaine patch #MRSA cellulitis #MRSA bacteremia #Septic pulmonary emboli Positive cultures 02/14, but started empirically on vanc 02/12. In house read of OSH CT CAP with septic emboli in lungs, confirmed on repeat this admission. 02/20 Bcx+ within 24 hours MRSE 1/2 bottles, likely contaminant. TTE 02/20 read LVEF 55- 60, no valvular dz or vegetations. 02/20 LUE ultrasound with cellulitis with underlying myositis and small non-drainable fluid collection, verified by CT LUE without osteomyelitis. 02/20 ACCS c/s rec nonoperative. L PICC placed after initial + Bcx, okay to leave inper ID for Vanc course. 02/20 Bcx+ MRSE 1/2 bottles likely contaminant. - Continue Vanc with regular vanc trough - ID c/s with recs Vanc 4 weeks end (02/12 - 03/16) with PICC in place. Per ID today, can switch to PO Linezolid 600mg BID starting today and continue until 03/16 #HTN #HLD #CAD c/b OR s/p CABG #apical HCM No indication for triple therapy AC/antiplatelet at this time. Lipid panel with LDL 37, A1c 5.4. Home HTN regimen: lisinopril 10mg. - Atorvastatin 80, Zetia, Plavix - Hold ASA given AC. - Continue to hold home lisinopril 10mg - Home lasix 40mg BID held in CCU. Restart now #R arm fracture Fracture after ground-level fall 02/06. S/p cast with plan for outpatient follow up. C/o swelling after ortho recast while here but neurovascular intact without numbness/tingling/loss of dexterity. Xray arm wit nondisplaced arm fracture. - RUE platform weight bearing - XR 02/26 per Ortho rec to ensure no interval displacement: minimally displaced ulnar styloid process fracture. [facility]. Ortho will also see while on the floor - appreciate recs. #Anemia of Chronic disease Baseline 9-10. 8.0 on day of admission now stable at 7.4. Fe 24, Ferritin 299, TIBC 192, Tsat 13% suggestive of anemia of chronic disease. B12 1886, folate 15.3. - CTM #CLAUDIA on CKD 3a - stable Per chart review. Baseline Cr ~0.9. Cr 1.28 this am from 1 yesterday iso restarting home lasix 40 BID. - Will dial down to 40mg daily starting tomorrow #IBS Current regimen: [id number] - continue Linaclotide #prior DVT Remote, unprovoked. Chronically on Eliquis. S/p DCCV. Resume Eliquis. #OA #DDD Current regimen: Voltaren gel, gabapentin 600mg QID - Lidocaine patches and APAP as needed, gabapentin 600mg BID - If breakthrough pain, can consider fentanyl patch #osteoporosis Currently on alendronate 70mg qWeekly - CTM, held inpt. Will resume outpt. #GERD Home regimen: omeprazole 20mg - PPI #anxiety/depression - Continue Zoloft #Dispo: [employer] insurance denied Rehab today. The liaison plans to have patient sign an appeal form first thing Friday morning. [employer] won't even be addressing over weekend. Though their response time is pretty quick, within 24 hours usually. Hopefully she can go by Friday if approved. Ritika Serrano MD PhD Internal Medicine PGY-1 03/03/2023 8:38 AM Cosigned by Benjamín Mancuso MD at 03/04/2023 9:59 AM CDT Associated attestation - Benjamín Mancuso MD - 03/04/2023 9:59 AM CDT Attending Documentation I have seen and examined the patient on 03/03/2023. I agree with the findings and plan of care as documented in the resident's/fellow's note. Supplementary Attestation Today, I am treating the patient for MRSA bacteremia which is in severe exacerbation, progression, or experiencing treatment side effects as evidenced by blood cultures/need for IV abx, as described in the note. Most recent creatinine was 1.28 which was used to continue or change medication dosing The patient is being intensively monitored for drug toxicity from amiodarone. The patient is being intensively monitored for drug toxicity from intravenous diuretics with BMP testing. Benjamín Mancuso MD 03/04/2023 9:55 AM * Ritika Serrano MD - 03/02/2023 6:28 AM CDT Cardiology Daily Progress Note Subjective Interval events - Endorsed dizziness (head spinning) while at rest throughout the day accompanied by nausea. No heart palpitations. - Sinus rhythm at 50-60s on EKG and Tele with second degree AV block vs atrial bigeminy. - Labs unremarkable. Objective Vitals: 24hr Min/Max: Temp Min: 36.4 ??C (97.5 ??F) Max: 36.8 ??C (98.2 ??F) Pulse Min: 52 Max: 62 BP Min: 104/45 Max: 137/51 Resp Min: 16 Max: 20 SpO2 Min: 95 % Max: 100 % Most Recent : Vitals: 03/01/23 2355 BP: 104/45 Pulse: 53 Resp: 18 Temp: 36.8 ??C (98.2 ??F) SpO2: 96% I/O last 3 completed shifts: In: 900 [P.O.:900] Out: - Physical Exam: General: Not in distress, appears comfortable HEENT: Normocephalic, no conjunctival pallor, no scleral icterus Cardiac: Normal rate; regular rhythm; audible S1 and S2 without appreciable murmurs, rubs, or gallops; 2+ radial pulses; no LE edema; no JVD nor hepato- jugular reflux Pulm: clear to auscultation bilaterally; no wheezes, rales, or rhonchi GI/Abd: Soft, nontender, nondistended MSK: Normal bulk and tone, no joint effusions or major deformities Skin: No rash or bruises Extremities: 1+ pitting edema in BLE Neuro: AAO x 4, CN II-XII grossly intact, moves all extremities spontaneously. HINTS exam (while ptwas not in acute episode) this am showed unidirectional, horizontal nystagmus, negative skew test, and abnormal head impulse test. Assessment Tiera Lobato is a 77 y.o. female with a PMH of pAF, Apical variant HCM, CAD with OR in 2013 s/p CABG with LAWSON to LAD and SVG to OM, HTN, DDD,diverticulitis, vertigo, prior DVT, OA who presents as an OSH transfer for AFib with RVR complicated by hemodynamic instability now rate controlled onoral dig / metop /amio found to have MRSA cellulitis and MRSA bacteremia with septic pulmonary emboli on Vanc, currently HDS in R s/p DCCV pending dispo. Plan #pAF with RVR Home regimen: metop 50mg daily. Previously on sotalol 80mg (15d supply last dispensed 02/07/23). TTE02/20 read LVEF 55-60, no valvular dz. S/p DCCV. Developed new nausea and dizziness at rest since 03/01, managed by Zofran. HINTS exam this am showed unidirectional, horizontal nystagmus, negative skew test, and abnormal head impulse test, suggesting peripheral rather than central vestibulopathy whichis reassuring, although pt was not in acute episode at the time and so might not be valid. Also noted possible 2nd degree AV block vs atrial bigeminy on EKG/Tele. Nausea could be related to Amiodarone intolerance, which could further exacerbate AV block. Would try Amiodarone with food to reduce nausea and at the mean time holding Metop to monitor AV block on tele and EKG. - Continue with home Eliquis. - Oral amiodarone 200mg daily - please give with meals. - Metoprolol tartrate 50mg BID => 25mg BID (03/01) due to dizziness. HOLD Metop today - Scheduled to see KNIFE GLAZER Harpreet Ravi at Dr. Stafford's office on Mar 20 #MRSA cellulitis #MRSA bacteremia #Septic pulmonary emboli Positive cultures 02/14, but started empirically on vanc 02/12. In house read of OSH CT CAP with septic emboli in lungs, confirmed on repeat this admission. 02/20 Bcx+ within 24 hours MRSE 1/2 bottles, likely contaminant. TTE 02/20 read LVEF 55- 60, no valvular dz or vegetations. 02/20 LUE ultrasound with cellulitis with underlying myositis and small non-drainable fluid collection, verified by CT LUE without osteomyelitis. 02/20 ACCS c/s rec nonoperative. L PICC placed after initial + Bcx, okay to leave inper ID for Vanc course. 02/20 Bcx+ MRSE 1/2 bottles likely contaminant. - Continue Vanc with regular vanc trough - ID c/s with recs Vanc 4 weeks end (02/12 - 03/16) with PICC in place. Can switch to PO Linezolid 600mg after being discharged from [place] [facility] until 03/16 #HTN #HLD #CAD c/b OR s/p CABG #apical HCM No indication for triple therapy AC/antiplatelet at this time. Lipid panel with LDL 37, A1c 5.4. Home HTN regimen: lisinopril 10mg. - Atorvastatin 80, Zetia, Plavix - Hold ASA given AC. - Continue to hold home lisinopril 10mg - Home lasix 40mg BID held in CCU. Restart now #R arm fracture Fracture after ground-level fall 02/06. S/p cast with plan for outpatient follow up. C/o swelling after ortho recast while here but neurovascular intact without numbness/tingling/loss of dexterity. Xray arm wit nondisplaced arm fracture. - RUE platform weight bearing - XR 02/26 per Ortho rec to ensure no interval displacement: minimally displaced ulnar styloid process fracture. [facility]. Ortho will also see while on the floor - appreciate recs. #Anemia of Chronic disease Baseline 9-10. 8.0 on day of admission now stable at 7.4. Fe 24, Ferritin 299, TIBC 192, Tsat 13% suggestive of anemia of chronic disease. B12 1886, folate 15.3. - CTM #CKD 3a - stable Per chart review. Baseline Cr ~0.9. Currently at her baseline Cr. #IBS Current regimen: [id number] - continue Linaclotide #prior DVT Remote, unprovoked. Chronically on Eliquis. S/p DCCV. Resume Eliquis. #OA #DDD Current regimen: Voltaren gel, gabapentin 600mg QID - Lidocaine patches and APAP as needed, gabapentin 600mg BID - If breakthrough pain, can consider fentanyl patch #osteoporosis Currently on alendronate 70mg qWeekly - CTM, held inpt. Will resume outpt. #GERD Home regimen: omeprazole 20mg - PPI #anxiety/depression - Continue Zoloft #Dispo: [employer] insurance denied Rehab today. The liaison plans to have patient sign an appeal form first thing Friday morning. [facility] won't even be addressing over weekend. Though their response time is pretty quick, within 24 hours usually. Hopefully she can go by Friday if approved. Ritika Serrano MD PhD Internal Medicine PGY-1 03/02/2023 6:28 AM Cosigned by Jose Roberto Santos MD PhD at 03/02/2023 2:03 PM CDT Associated attestation - Jose Roberto Santos MD PhD - 03/02/2023 2:03 PM CDT I have seen and examined the patient on 03/02/23. I agree with the findings and plan of care as documented in the resident's/fellow's note.. * Ritika Serrano MD - 03/01/2023 7:20 AM CDT Cardiology Daily Progress Note Subjective Interval events - NAEON. VSS. Sinus rhythm at 50-60s on EKG and Tele. Endorsed dizziness while ambulating on floor accompanied by nausea. No heart palpitations. - Labs unremarkable. Objective Vitals: 24hr Min/Max: Temp Min: 36.5 ??C (97.7 ??F) Max: 36.8 ??C (98.2 ??F) Pulse Min: 52 Max: 61 BP Min: 95/38 Max: 118/42 Resp Min: 18 Max: 18 SpO2 Min: 96 % Max: 97 % Most Recent : Vitals: 03/01/23 0700 BP: Pulse: 53 Resp: Temp: SpO2: I/O last 3 completed shifts: In: 780 [P.O.:780] Out: - Physical Exam: General: Not in distress, appears comfortable HEENT: Normocephalic, no conjunctival pallor, no scleral icterus Cardiac: Normal rate; regular rhythm; audible S1 and S2 without appreciable murmurs, rubs, or gallops; 2+ radial pulses; no LE edema; no JVD nor hepato- jugular reflux Pulm: clear to auscultation bilaterally; no wheezes, rales, or rhonchi GI/Abd: Soft, nontender, nondistended MSK: Normal bulk and tone, no joint effusions or major deformities Skin: No rash or bruises Extremities: Warm and well perfused Neuro: AAO x 4, CN II-XII grossly intact, moves all extremities spontaneously Assessment Tiera Lobato is a 77 y.o. female with a PMH of pAF, Apical variant HCM, CAD with OR in 2012 s/p CABG with LAWSON to LAD and SVG to OM, HTN, DDD,diverticulitis, vertigo, prior DVT, OA who presents as an OSH transfer for AFib with RVR complicated by hemodynamic instability now rate controlled onoral dig / metop /amio found to have MRSA cellulitis and MRSA bacteremia with septic pulmonary emboli on Vanc, currently HDS in NSR s/p DCCV pending dispo. Plan #pAF with RVR Home regimen: metop 50mg daily. Previously on sotalol 80mg (15d supply last dispensed 02/07/23). TTE02/20 read LVEF 55-60, no valvular dz. S/p DCCV. - Continue with home Eliquis - Appreciate EP recs: - Oral amiodarone 200mg daily - Discontinue digxoin - Metoprolol tartrate 50mg BID => 25mg BID today due to dizziness. Could consider consolidation outpatient - Scheduled to see PILO Ravi at Dr. Stafford's office on Mar 20 #MRSA cellulitis #MRSA bacteremia #Septic pulmonary emboli Positive cultures 02/14, but started empirically on vanc 02/12. In house read of OSH CT CAP with septic emboli in lungs, confirmed on repeat this admission. 02/20 Bcx+ within 24 hours MRSE 1/2 bottles, likely contaminant. TTE 02/20 read LVEF 55- 60, no valvular dz or vegetations. 02/20 LUE ultrasound with cellulitis with underlying myositis and small non-drainable fluid collection, verified by CT LUE without osteomyelitis. 02/20 ACCS c/s rec nonoperative. L PICC placed after initial + Bcx, okay to leave inper ID for Vanc course. 02/20 Bcx+ MRSE 1/2 bottles likely contaminant. - Continue Vanc with regular vanc trough - ID c/s with recs Vanc 4 weeks end (02/12 - 03/16) with PICC in place. Can switch to PO Linezolid 600mg after being discharged from [place] [facility] until 03/16 #HTN #HLD #CAD c/b OR s/p CABG #apical HCM No indication for triple therapy AC/antiplatelet at this time. Lipid panel with LDL 37, A1c 5.4. Home HTN regimen: lisinopril 10mg - Atorvastatin 80, Zetia, Plavix - Hold ASA given AC. - Continue to hold home lisinopril 10mg #R arm fracture Fracture after ground-level fall 02/06. S/p cast with plan for outpatient follow up. C/o swelling after ortho recast while here but neurovascular intact without numbness/tingling/loss of dexterity. Xray arm wit nondisplaced arm fracture. - RUE platform weight bearing - XR 02/26 per Ortho rec to ensure no interval displacement: minimally displaced ulnar styloid process fracture. [facility]. Ortho will also see while on the floor - appreciate recs. #Anemia of Chronic disease Baseline 9-10. 8.0 on day of admission now stable at 7.4. Fe 24, Ferritin 299, TIBC 192, Tsat 13% suggestive of anemia of chronic disease. B12 1886, folate 15.3. - CTM #CKD 3a - stable Per chart review. Baseline Cr ~0.9. Currently at her baseline Cr. #IBS Current regimen: [id number] - continue Linaclotide #prior DVT Remote, unprovoked. Chronically on Eliquis. S/p DCCV. Resume Eliquis. #OA #DDD Current regimen: Voltaren gel, gabapentin 600mg QID - Lidocaine patches and APAP as needed, gabapentin 600mg BID - If breakthrough pain, can consider fentanyl patch #osteoporosis Currently on alendronate 70mg qWeekly - CTM, held inpt. Will resume outpt. #GERD Home regimen: omeprazole 20mg - PPI #anxiety/depression - Continue Zoloft #Dispo: [employer] insurance denied Rehab today. The liaison plans to have patient sign an appeal form first thing Friday morning. [employer] won't even be addressing over weekend. Though their response time is pretty quick, within 24 hours usually. Hopefully she can go by Friday if approved. Ritika Serrano MD PhD Internal Medicine PGY-1 03/01/2023 7:20 AM Cosigned by Jose Roberto Santos MD PhD at 03/02/2023 1:55 PM CDT Associated attestation - Jose Roberto Santos MD PhD - 03/02/2023 1:55 PM CDT I have seen and examined the patient on 03/01/2023. I agree with the findings and plan of care as documented in the resident's/fellow's note.. * Baylee Burkett RN - 02/28/2023 5:05 PM CDT 02/28/23 1750 Communications Important Message from Medicare notice given to patient? Yes IM letter completed with patient on 02/28 @ 17:05. Patient was informed of the planned discharge date, the date the beneficiary's financial liability begins, the beneficiary's appeal rights, and how and when to initiate an appeal. IM letter was placed in the unit???s designated medical record bin cecilia uploaded into the patient???s chart. * Nelia Saldaña, OT - 02/28/2023 9:44 AM CDT Occupational Therapy Occupational Therapy Progress Note NOTE: This is a summary note of the martinez components of the treatment session. For full details, review chart for all flowsheets documented on by this occupational therapy clinician on this date. Vitalsigns documented in vital signs flowsheet. Care plan progress documented in Care Plan Activity. For questions, please review the treatment team and contact the occupational therapist currently assigned to this patient. If an occupational therapist is not assigned to this patient, please call [phone]. 02/28/23 3035 General Session Type Treatment OT Received On 02/28/23 Safe Environment Arm band checked;Patient found in supine;Session completed bedside;Gait belt utilized for all out of bed mobility Subjective Agreeable to Therapy Subjective Comment Patient states the last time she got up with therapy she used a quad cane, but she prefers the platform wheeled walker as that makes her feel more confident and steady. Patient verbalized understanding that OT tried to find one to use for today's session, but it was not available, but therapy will continue to make the platform walker a priority due to her preference. Family/Caregiver Present No Precautions Precautions Fall risk Weight Bearing Restrictions Yes RUE Weight Bearing NWB Precaution Comments verbally reviewed R UE precautions Pain Assessment Pain Assessment 0-10 Pain Score 5 - Moderate pain Pain Location Wrist Pain Orientation Right (patient also reports R LE is painful at times as well due to her fall) Pain Interventions RN Notified (patient declines meds right now stating pain is not bad) Balance Balance Yes Static Sitting Balance Static Sitting-Balance Support Feet supported;No upper extremity supported Static Sitting-Sitting Surface Bed Static Sitting-Level of Assistance Distant supervision Dynamic Sitting Balance Dynamic Sitting-Balance Support No upper extremity supported Dynamic Sitting-Balance Forward lean Dynamic Sitting-Sitting Surface Chair Dynamic Sitting-Level of Assistance Close supervision Dynamic Sitting-Comments LB dressing task Static Standing Balance Static Standing-Balance Support Left upper extremity supported Static Standing-Standing Surface Floor Static Standing-Level of Assistance Contact guard Static Standing-Comment/# of Minutes use of LBQC Dynamic Standing Balance Dynamic Standing-Balance Support No upper extremity supported Dynamic Standing-Balance Forward lean Dynamic Standing-Standing Surface Floor Dynamic Standing-Level of Assistance Minimum assistance Dynamic Standing-Comments grooming at sink ADL ADLS (WDL) X Grooming Grooming: Where assessed Standing at sink Grooming: Level of assistance Minimum Assist LE Dressing LE Dressing: Where assessed Chair LE Dressing: Level of assistance Moderate Assist LE Dressing: Assistance with Don/doff R sock;Thread RLE into pants;Don/doff R shoe Toileting Toileting: Where assessed Toilet Toileting: Level of assistance Moderate Assist Toileting: Assistance with Perineal hygiene;Posterior;Increased time to complete Room Mobility Room Mobility: Where assessed bed to bathroom then to recliner Health Management: Equipment Cane Room Mobility: Level of Assistance Minimum Assist Bed Mobility Bed Mobility Yes Bed Mobility 1 Bed Mobility From 1 Supine Bed Mobility Type 1 To Bed Mobility to 1 Edge of bed Level of Assistance 1 Minimum Assist Bed Mobility Comments 1 HOB elevated and use of rails. difficulty moving R LE, might benefit from use of leg facilities maintenance worker for R LE bed mobility Transfers Transfer Yes Transfer 1 Transfer From 1 Sit Transfer Type 1 To and from Transfer to 1 Stand Technique 1 Sit to stand;Stand to sit Transfer Device 1 LBQC Transfer Level of Assistance 1 Minimum Assist Toilet Transfers Toilet Transfer From Bed Toilet Transfer Type To Toilet Transfer to Standard toilet Toilet Transfer Technique Ambulating Toilet Transfer: Equipment LBQC;Grab bar Toilet Transfers Minimal assistance Cognition Overall Cognitive Status WFL Arousal/Alertness Alert;Appropriate responses to stimuli Attention Span Appears intact Memory Appears intact Current communication Appears Intact Orientation Oriented X4 (person, place, time, situation) Following Commands Follows all commands and directions without difficulty Safety Judgment Good awareness of safety precautions Awareness of Errors Good awareness of errors made Insight Fully aware of deficits Problem Solving Able to problem solve independently Compliance/Behavior Easy to engage Activity Tolerance Activity Tolerance Comments Isaak: moderate Other Comments Comments Patient states after doing grooming at sink and toileting, her legs do feel shaky and knows she requires assist with mobility. Daily Activity - 6 Clicks Putting on and taking off regular lower body clothing 2 Bathing 3 Toileting 2 Putting on and taking off upper body clothing 2 Personal Grooming 3 Eating Meals 3 Total Score (range 6-24) 15 Score Interpretation 34.69 Safe Environment End of Therapy Session Safe Environment End of Therapy Session Patient left in recliner;Chair alarm in place and activated;RN notified;Call light within reach;Overbed table within reach Assessment Problem List Decreased upper extremity range of motion;Decreased upper extremity strength;Decreasedendurance;Decreased balance;Decreased fine motor control;Decreased functional mobility;Decreased ADL independence;Decreased IADL independence Barriers to Discharge Current Mobility Status;Decreased caregiver support Barrier Comments fall risk Plan Plan Continue with current plan;If this is the last note, consider this the discharge summary Recommendation/Plan OT Recommendation Inpatient Rehab Facility Patient at high risk for Falls;Injury due to reduced functional status;Injury due to balance deficits;Injury at home as patient has not returned to prior level of function Recommend Inpatient Rehab/Acute Rehab due to Ability to actively participate in intensive therapy 3hours/day, 5 days/week or 900 minutes per week;Highly motivated to participate in therapy;Not at baseline due to impaired ability to complete ADLs;Impaired ability to complete functional mobility;Likely to return to the community at discharge with support system in place;Requires greater than 25% physical assistance with most mobility tasks;Requires greater than 25% physical assistance with most ADL tasks;Requires multiple therapy disciplines to address functional deficits;Patient and caregiverrequire specialized skilled training due to new level of function/diagnosis OT Frequency during current admission 3-5x/wk Treatment/Interventions during current admission ADL/IADL retraining;Balance Training;Bed mobility;Compensatory technique education;Endurance training;Functional activity;Functional mobility training;Functional transfer training;Strengthening;Therapeutic activity;Therapeutic exercise;Transfer traini ng OT Equipment Recommended (bidet prn for posterior perihygiene) Progress during current admission Progressing toward goals OT - Next Appointment 03/03/23 Multi-Disciplinary Problems (from Occupational Therapy) Active Problems Problem: Dressings Lower Extremities Start Date: 02/24/23 Goal Start Date Expected End Date End Date STG - Patient to complete lower body dressing 02/24/23 02/28/23 -- Goal Details: With supervision Problem: Dressing Upper Extremities Start Date: 02/24/23 Goal Start Date Expected End Date End Date STG - Patient will dress upper body 02/24/23 02/28/23 -- Goal Details: With supervision Problem: Grooming Start Date: 02/24/23 Goal Start Date Expected End Date End Date STG - Patient will complete grooming 02/24/23 02/28/23 -- Goal Details: in standing at bathroom sink with supervision Problem: Toileting Start Date: 02/24/23 Goal Start Date Expected End Date End Date STG - Patient will complete toileting tasks with 02/24/23 02/28/23 -- Goal Details: supervision Problem: Transfers Start Date: 02/24/23 Goal Start Date Expected End Date End Date STG - Patient will perform toilet transfer 02/24/23 02/28/23 -- Goal Details: to toilet in bathroom with supervision Problem: OT Misc Start Date: 02/24/23 Goal Start Date Expected End Date End Date OT LTG - Misc 1 02/24/23 02/28/23 -- Goal Details: Pt will complete ADLs with independence. * Ritika Serrano MD - 02/28/2023 5:41 AM CDT Cardiology Daily Progress Note Subjective Interval events - NAEON. VSS. Sinus rhythm at 50-60s on EKG and Tele. - Labs unremarkable. Objective Vitals: 24hr Min/Max: Temp Min: 36.6 ??C (97.9 ??F) Max: 36.8 ??C (98.2 ??F) Pulse Min: 50 Max: 61 BP Min: 121/59 Max: 128/59 Resp Min: 18 Max: 18 SpO2 Min: 98 % Max: 100 % Most Recent : Vitals: 02/27/23 2300 BP: 122/53 Pulse: 50 Resp: 18 Temp: SpO2: 99% I/O last 3 completed shifts: In: 1340 [P.O.:1340] Out: 1300 [Urine:1300] Physical Exam: General: Not in distress, appears comfortable HEENT: Normocephalic, no conjunctival pallor, no scleral icterus Cardiac: Normal rate; regular rhythm; audible S1 and S2 without appreciable murmurs, rubs, or gallops; 2+ radial pulses; no LE edema; no JVD nor hepato- jugular reflux Pulm: clear to auscultation bilaterally; no wheezes, rales, or rhonchi GI/Abd: Soft, nontender, nondistended MSK: Normal bulk and tone, no joint effusions or major deformities Skin: No rash or bruises Extremities: Warm and well perfused Neuro: AAO x 4, CN II-XII grossly intact, moves all extremities spontaneously Assessment Tiera Lobato is a 77 y.o. female with a PMH of pAF, Apical variant HCM, CAD with OR in 2013 s/p CABG with LAWSON to LAD and SVG to OM, HTN, DDD,diverticulitis, vertigo, prior DVT, OA who presents as an OSH transfer for AFib with RVR complicated by hemodynamic instability now rate controlled onoral dig / metop /amio found to have MRSA cellulitis and MRSA bacteremia with septic pulmonary emboli on Vanc, currently HDS in NSR s/p DCCV pending dispo. Plan #pAF with RVR Home regimen: metop 50mg daily. Previously on sotalol 80mg (15d supply last dispensed 02/07/23). TTE02/20 read LVEF 55-60, no valvular dz. S/p DCCV. - Continue with home Eliquis - Appreciate EP recs: - Oral amiodarone 200mg daily - Discontinue digxoin - Metoprolol tartrate 50mg BID. Could consider consolidation outpatient - Scheduled to see PILO Ravi at Dr. Stafford's office on Mar 20 #MRSA cellulitis #MRSA bacteremia #Septic pulmonary emboli Positive cultures 02/14, but started empirically on vanc 02/12. In house read of OSH CT CAP with septic emboli in lungs, confirmed on repeat this admission. 02/20 Bcx+ within 24 hours MRSE 1/2 bottles, likely contaminant. TTE 02/20 read LVEF 55- 60, no valvular dz or vegetations. 02/20 LUE ultrasound with cellulitis with underlying myositis and small non-drainable fluid collection, verified by CT LUE without osteomyelitis. 02/20 ACCS c/s rec nonoperative. L PICC placed after initial + Bcx, okay to leave inper ID for Vanc course. 02/20 Bcx+ MRSE 1/2 bottles likely contaminant. - Continue Vanc with regular vanc trough - ID c/s with recs Vanc 4 weeks end (02/12 - 03/16) with PICC in place. Can switch to PO Linezolid 600mg after being discharged from [place] [facility] until 03/16 #HTN #HLD #CAD c/b OR s/p CABG #apical HCM No indication for triple therapy AC/antiplatelet at this time. Lipid panel with LDL 37, A1c 5.4. Home HTN regimen: lisinopril 10mg - Atorvastatin 80, Zetia, Plavix - Hold ASA given AC. - Continue to hold home lisinopril 10mg #R arm fracture Fracture after ground-level fall 02/06. S/p cast with plan for outpatient follow up. C/o swelling after ortho recast while here but neurovascular intact without numbness/tingling/loss of dexterity. Xray arm wit nondisplaced arm fracture. - RUE platform weight bearing - XR 02/26 per Ortho rec to ensure no interval displacement: minimally displaced ulnar styloid process fracture. [facility]. #Anemia of Chronic disease Baseline 9-10. 8.0 on day of admission now stable at 7.4. Fe 24, Ferritin 299, TIBC 192, Tsat 13% suggestive of anemia of chronic disease. B12 1886, folate 15.3. - CTM #CKD 3a - stable Per chart review. Baseline Cr ~0.9. Currently at her baseline Cr. #IBS Current regimen: [id number] - continue Linaclotide #prior DVT Remote, unprovoked. Chronically on Eliquis. S/p DCCV. Resume Eliquis. #OA #DDD Current regimen: Voltaren gel, gabapentin 600mg QID - Lidocaine patches and APAP as needed, gabapentin 600mg BID - If breakthrough pain, can consider fentanyl patch #osteoporosis Currently on alendronate 70mg qWeekly - CTM, held inpt. Will resume outpt. #GERD Home regimen: omeprazole 20mg - PPI #anxiety/depression - Continue Zoloft Ritika Serrano MD PhD Internal Medicine PGY-1 02/28/2023 5:41 AM Cosigned by Jose Roberto Santos MD PhD at 03/01/2023 11:18 AM CDT Associated attestation - Jose Roberto Santos MD PhD - 03/01/2023 11:18 AM CDT I have seen and examined the patient on 02/28/2023. I agree with the findings and plan of care as documented in the resident's/fellow's note.. * Ritika Serrano MD - 02/27/2023 6:14 AM CDT Cardiology Daily Progress Note Subjective Interval events - NAEON. VSS. Sinus rhythm at 50-60s on EKG and Tele. - Labs unremarkable. Objective Vitals: 24hr Min/Max: Temp Min: 36.5 ??C (97.7 ??F) Max: 36.7 ??C (98.1 ??F) Pulse Min: 51 Max: 63 BP Min: 114/80 Max: 138/56 Resp Min: 16 Max: 20 SpO2 Min: 94 % Max: 98 % Most Recent : Vitals: 02/26/23 2300 BP: 117/45 Pulse: 51 Resp: 20 Temp: SpO2: 94% I/O last 3 completed shifts: In: 1196.2 [P.O.:1020; I.V.:176.2] Out: 2350 [Urine:2350] Physical Exam: General: Not in distress, appears comfortable HEENT: Normocephalic, no conjunctival pallor, no scleral icterus Cardiac: Normal rate; regular rhythm; audible S1 and S2 without appreciable murmurs, rubs, or gallops; 2+ radial pulses; no LE edema; no JVD nor hepato- jugular reflux Pulm: clear to auscultation bilaterally; no wheezes, rales, or rhonchi GI/Abd: Soft, nontender, nondistended MSK: Normal bulk and tone, no joint effusions or major deformities Skin: No rash or bruises Extremities: Warm and well perfused Neuro: AAO x 4, CN II-XII grossly intact, moves all extremities spontaneously Lab/Radiology/Diagnostic Review: Assessment Tiera Lobato is a 77 y.o. female with a PMH of pAF, Apical variant HCM, CAD with OR in 2013 s/p CABG with LAWSON to LAD and SVG to OM, HTN, DDD,diverticulitis, vertigo, prior DVT, OA who presents as an OSH transfer for AFib with RVR complicated by hemodynamic instability now rate controlled onoral dig / metop /amio found to have MRSA cellulitis and MRSA bacteremia with septic pulmonary emboli on Vanc, currently HDS in NSR s/p DCCV pending dispo. Plan #pAF with RVR Home regimen: metop 50mg daily. Previously on sotalol 80mg (15d supply last dispensed 02/07/23). TTE02/20 read LVEF 55-60, no valvular dz. S/p DCCV. - Continue with home Eliquis - Appreciate EP recs: - Can switch to oral amiodarone 200mg daily - Can discontinue digxoin - Continue metoprolol tartrate 50mg BID. Could consider consolidation outpatient - Please ensure follow-up with patient's primary senior cisco network engineer, Dr. Stafford in 3-4 weeks #MRSA cellulitis #MRSA bacteremia #Septic pulmonary emboli Positive cultures 02/14, but started empirically on vanc 02/12. In house read of OSH CT CAP with septic emboli in lungs, confirmed on repeat this admission. 02/20 Bcx+ within 24 hours MRSE 1/2 bottles, likely contaminant. TTE 02/20 read LVEF 55- 60, no valvular dz or vegetations. 02/20 LUE ultrasound with cellulitis with underlying myositis and small non-drainable fluid collection, verified by CT LUE without osteomyelitis. 02/20 ACCS c/s rec nonoperative. L PICC placed after initial + Bcx, okay to leave inper ID for Vanc course. 02/20 Bcx+ MRSE 1/2 bottles likely contaminant. - Continue Vanc with regular vanc trough - ID c/s with recs Vanc 4 weeks end (02/12 - 03/16) with PICC in place. Can switch to PO Linezolid 600mg after being discharged from [place] [facility]. #HTN #HLD #CAD c/b OR s/p CABG #apical HCM No indication for triple therapy AC/antiplatelet at this time. Lipid panel with LDL 37, A1c 5.4. Home HTN regimen: lisinopril 10mg - Atorvastatin 80, Zetia, Plavix - Hold ASA given AC. - Continue to hold home lisinopril 10mg #R arm fracture Fracture after ground-level fall 02/06. S/p cast with plan for outpatient follow up. C/o swelling after ortho recast while here but neurovascular intact without numbness/tingling/loss of dexterity. Xray arm wit nondisplaced arm fracture. - RUE platform weight bearing - XR 02/26 per Ortho rec to ensure no interval displacement: minimally displaced ulnar styloid process fracture. [facility]. #Anemia of Chronic disease Baseline 9-10. 8.0 on day of admission now stable at 7.4. Fe 24, Ferritin 299, TIBC 192, Tsat 13% suggestive of anemia of chronic disease. B12 1886, folate 15.3. - CTM #CKD 3a - stable Per chart review. Baseline Cr ~0.9. Currently at her baseline Cr. #IBS Current regimen: [id number] - continue Linaclotide #prior DVT Remote, unprovoked. Chronically on Eliquis. S/p DCCV. Resume Eliquis. #OA #DDD Current regimen: Voltaren gel, gabapentin 600mg QID - Lidocaine patches and APAP as needed, gabapentin 600mg BID - If breakthrough pain, can consider fentanyl patch #osteoporosis Currently on alendronate 70mg qWeekly - CTM, held inpt. Will resume outpt. #GERD Home regimen: omeprazole 20mg - PPI #anxiety/depression - Continue Zoloft Ritika Serrano MD PhD Internal Medicine PGY-1 02/27/2023 6:14 AM Cosigned by Jose Roberto Santos MD PhD at 02/27/2023 5:20 PM CDT Associated attestation - Jose Roberto Santos MD PhD - 02/27/2023 5:20 PM CDT I have seen and examined the patient on 02/27/23. I agree with the findings and plan of care as documented in the resident's/fellow's note.. * Branden Vance, PT - 02/26/2023 2:25 PM CDT Physical Therapy Physical Therapy Progress Note NOTE: This is a summary note of the martinez components of the treatment session. For full details, review chart for all flowsheets documented on by this physical therapy clinician on this date. Vital signs documented in vital signs flowsheet. Care plan progress documented in Care Plan Activity. For questions, please review the treatment team and contact the PT or ASSISTANT TECHNICIAN currently assigned to this patient. If a physical therapy clinician is not assigned to this patient, please call [phone]. 02/26/23 1425 PT Last Visit Session Type Treatment PT Received On 02/26/23 Safe Environment Arm band checked;Patient found in supine;Gait belt utilized for all out of bed mobility Subjective Agreeable to Therapy Family/Caregiver Present No Precautions Precautions Fall risk Weight Bearing Restrictions Yes RUE Weight Bearing NWB Precaution Comments reviewed precautions prior to mobility. PPE worn by PT;gown, mask, gloves Activity Tolerance Activity Tolerance Comments ISAAK:moderate Pain Assessment Pain Assessment No/denies pain Cognition Arousal/Alertness Alert;Appropriate responses to stimuli Orientation Oriented X4 (person, place, time, situation) Following Commands Follows all commands and directions without difficulty Balance Balance Yes Static Sitting Balance Static Sitting-Balance Support No upper extremity supported;Feet supported Static Sitting-Sitting Surface Bed Static Sitting-Level of Assistance Close supervision Static Sitting-Comment/# of Minutes safety/balance Static Standing Balance Static Standing-Balance Support Left upper extremity supported Static Standing-Standing Surface Floor Static Standing-Level of Assistance Minimum assistance Static Standing-Comment/# of Minutes assist for safety/balance. quad cane Bed Mobility Bed Mobility Yes Bed Mobility 1 Bed Mobility From 1 Supine Bed Mobility Type 1 To Bed Mobility to 1 Edge of bed Level of Assistance 1 Moderate Assist Bed Mobility Comments 1 assist for safety, trunk elevation, bringing hips to EOB, LE management. Transfers Transfer Yes Transfer 1 Transfer From 1 Sit Transfer Type 1 To and from Transfer to 1 Stand Technique 1 Sit to stand;Stand to sit Transfer Device 1 [facility] Transfer Level of Assistance 1 Minimum Assist Trials/Comments 1 assist for safety, balance, force production. Ambulation Ambulation Yes Ambulation 1 Distance (ft) 1 4 Surface 1 Level tile Device 1 [facility]QC Assistance 1 Minimum Assist Gait: Requires assist with 1 Maintaining balance Gait: Requires verbal cues to 1 Use assistive device safely;Utilize pursed lip breathing;Increase step length;Improve upright posture Gait Deviations 1 Base of support - decreased;Roma - decreased;Step length - decreased;Turns - difficulty;Posture - flexed;Heel strike - decreased Ambulation Comments 1 deferred further mobility 2/2 dizziness. Stairs Stairs No Basic Mobility - 6 Click How much difficulty does the patient have: Turning over in bed 3 How much difficulty does the patient currently have: Sitting down and standing up from a chair witharms? 3 How much difficulty does the patient have: Moving from lying on back to sitting on the side of the bed? 3 How much difficulty does the patient have: Moving to and from a bed to a chair including wheelchair? 3 How much help does the patient currently need: Walk in hospital room? 3 How much help from another person does the patient currently need: Climbing 3-5 steps with a railing? 2 Total 6 Click Score (range 6-24) 17 Score Interpretation 39.67 Safe Environment End of Therapy Session Safe Environment End of Therapy Session RN notified;Call light within reach;Overbed table within reach;Patient left supine in bed Assessment Prognosis Good Problem List Gait deviations;Decreased strength;Decreased endurance;Decreased range of motion;Impaired balance;Decreased mobility Barriers to Discharge Current Mobility Status Plan Plan Continue with current plan;If this is the last note, consider this the discharge summary Recommendation/Plan PT Recommendation/Plan Inpatient Rehab Facility Patient at high risk for Falls;Readmission;Injury due to decreased ability to care for self;Injury due to reduced functional status;Injury due to balance deficits;Injury at home as patient has not returned to prior level of function;Developing secondary complications: poor health management Recommend Inpatient Rehab/Acute Rehab due to Impaired ability to complete functional mobility;Not at baseline due to impaired ability to complete ADLs;Likely to return to the community at discharge with support system in place;Requires greater than 25% physical assistance with most mobility tasks;Re quires multiple therapy disciplines to address functional deficits;Ability to actively participate in intensive therapy 3 hours/day, 5 days/week or 900 minutes per week;Highly motivated to participate in therapy PT Frequency during current admission 3-5x/wk Treatment/Interventions during current admission Balance Training;Bed mobility;Functional transfer training;Gait training;Strengthening;Therapeutic activity Progress during current admission Progressing toward goals PT - Next Appointment 02/27/23 Multi-Disciplinary Problems (from Physical Therapy) Active Problems Problem: Mobility Start Date: 02/20/23 Goal Start Date Expected End Date End Date STG - Patient will ambulate 02/20/23 02/28/23 -- Goal Details: 250 ft, SBA, WW Problem: Transfers Start Date: 02/20/23 Goal Start Date Expected End Date End Date STG - Patient will perform bed mobility 02/20/23 02/28/23 -- Goal Details: IND Goal Start Date Expected End Date End Date STG - Patient will transfer sit to and from stand 02/20/23 02/28/23 -- Goal Details: SBA, WW Problem: PT Misc Start Date: 02/20/23 Goal Start Date Expected End Date End Date PT STG - Misc 1 02/20/23 02/28/23 -- Goal Details: Patient and caregivers will participate in and demonstrate understanding of therapeutic exercise and safe mobility strategies to improve independence with functional mobility. * Ritika Serrano MD - 02/26/2023 6:06 AM CDT Cardiology Daily Progress Note Subjective Interval events - NAEON. VSS. Sinus rhythm at 50-60s on EKG and Tele. - Labs unremarkable. Objective Vitals: 24hr Min/Max: Temp Min: 36.5 ??C (97.7 ??F) Max: 37.6 ??C (99.7 ??F) Pulse Min: 55 Max: 103 BP Min: 94/47 Max: 139/78 Resp Min: 10 Max: 21 SpO2 Min: 91 % Max: 99 % Most Recent : Vitals: 02/25/23 2325 BP: 111/53 Pulse: 55 Resp: 16 Temp: 36.6 ??C (97.9 ??F) SpO2: 96% I/O last 3 completed shifts: In: 1409.3 [P.O.:650; I.V.:244.3; IV Piggyback:515] Out: 2990 [Urine:2990] Physical Exam: General: Not in distress, appears comfortable HEENT: Normocephalic, no conjunctival pallor, no scleral icterus Cardiac: Normal rate; regular rhythm; audible S1 and S2 without appreciable murmurs, rubs, or gallops; 2+ radial pulses; no LE edema; no JVD nor hepato- jugular reflux Pulm: clear to auscultation bilaterally; no wheezes, rales, or rhonchi GI/Abd: Soft, nontender, nondistended MSK: Normal bulk and tone, no joint effusions or major deformities Skin: No rash or bruises Extremities: Warm and well perfused Neuro: AAO x 4, CN II-XII grossly intact, moves all extremities spontaneously Lab/Radiology/Diagnostic Review: Assessment Tiera Lobato is a 77 y.o. female with a PMH of pAF, Apical variant HCM, CAD with OR in 2012 s/p CABG with LAWSON to LAD and SVG to OM, HTN, DDD,diverticulitis, vertigo, prior DVT, OA who presents as an OSH transfer for AFib with RVR complicated by hemodynamic instability now rate controlled onoral dig / metop /amio found to have MRSA cellulitis and MRSA bacteremia with septic pulmonary emboli on Vanc. Plan #pAF with RVR Home regimen: metop 50mg daily. Previously on sotalol 80mg (15d supply last dispensed 02/07/23). TTE02/20 read LVEF 55-60, no valvular dz. S/p DCCV. - Continue with home Eliquis - Appreciate EP recs: - Can switch to oral amiodarone 200mg daily - Can discontinue digxoin - Continue metoprolol tartrate 50mg BID. Could consider consolidation outpatient - Please ensure follow-up with patient's primary senior cisco network engineer, Dr. Stafford in 3-4 weeks #MRSA cellulitis #MRSA bacteremia #Septic pulmonary emboli Positive cultures 02/14, but started empirically on vanc 02/12. In house read of OSH CT CAP with septic emboli in lungs, confirmed on repeat this admission. 02/20 Bcx+ within 24 hours MRSE 1/2 bottles, likely contaminant. TTE 02/20 read LVEF 55- 60, no valvular dz or vegetations. 02/20 LUE ultrasound with cellulitis with underlying myositis and small non-drainable fluid collection, verified by CT LUE without osteomyelitis. 02/20 ACCS c/s rec nonoperative. L PICC placed after initial + Bcx, okay to leave inper ID for Vanc course. 02/20 Bcx+ MRSE 1/2 bottles likely contaminant. - Continue Vanc with regular vanc trough - ID c/s with recs Vanc 4 weeks end (02/12 - 03/16) with PICC in place #HTN #HLD #CAD c/b OR s/p CABG #apical HCM No indication for triple therapy AC/antiplatelet at this time. Lipid panel with LDL 37, A1c 5.4. Home HTN regimen: lisinopril 10mg - Atorvastatin 80, Zetia, Plavix - Hold ASA given AC. - Hold BP meds given hypotension #R arm fracture Fracture after ground-level fall 02/06. S/p cast with plan for outpatient follow up. C/o swelling after ortho recast while here but neurovascular intact without numbness/tingling/loss of dexterity. Xray arm wit nondisplaced arm fracture. - RUE platform weight bearing - XR 02/26 per Ortho rec to ensure no interval displacement: Suspected minimally displaced ulnar styloid process fracture. [facility]. #Anemia of Chronic disease Baseline 9-10. 8.0 on day of admission now stable at 7.4. Fe 24, Ferritin 299, TIBC 192, Tsat 13% suggestive of anemia of chronic disease. B12 1886, folate 15.3. - CTM #CKD 3a - stable Per chart review. Baseline Cr ~0.9. Currently at her baseline Cr. #IBS Current regimen: [id number] - continue Linaclotide #prior DVT Remote, unprovoked. Chronically on Eliquis. S/p DCCV. Resume Eliquis. #OA #DDD Current regimen: Voltaren gel, gabapentin 600mg QID - Lidocaine patches and APAP as needed, gabapentin 600mg BID - If breakthrough pain, can consider fentanyl patch #osteoporosis Currently on alendronate 70mg qWeekly - CTM, held inpt #GERD Home regimen: omeprazole 20mg - PPI #anxiety/depression - Continue Zoloft Ritika Serrano MD PhD Internal Medicine PGY-1 02/26/2023 6:06 AM Cosigned by Jose Roberto Santos MD PhD at 02/26/2023 9:15 PM CDT Associated attestation - Jose Roberto Santos MD PhD - 02/26/2023 9:15 PM CDT I have seen and examined the patient on 02/26/23. I agree with the findings and plan of care as documented in the resident's/fellow's note.. * Ritika Serrano MD - 02/25/2023 6:01 PM CDT Cardiology Daily Progress Note Subjective Interval events Pt arrived to the floor this evening. VSS with BP 117/55, HR 62, satting well on RA. Physical exam notable for regular rate and rhythm, clear lungs, and 1+ LE pitting edema with JVD to jaw angle. Regarding dispo, PT/OT rec inpatient rehab/acute rehab. Brief hospital course: Pt was transferred from OSH with Afib w/ RVR and hemodynamic instability to ICU. Her rate was controlled by Amiodarone 400mg TID, Metop XL 50 BID and Digoxin, underwent DCCV today, reverting to NSR successfully. She was also managed for MRSA cellulitis/bacteremia/septic embolic with Vanc until 03/16/23. R arm fracture managed nonoperatively. Objective Vitals: 24hr Min/Max: Temp Min: 36.3 ??C (97.3 ??F) Max: 37.6 ??C (99.7 ??F) Pulse Min: 56 Max: 103 BP Min: 94/47 Max: 139/78 Resp Min: 10 Max: 30 SpO2 Min: 91 % Max: 99 % Most Recent : Vitals: 02/25/23 1700 BP: 127/48 Pulse: 63 Resp: 20 Temp: SpO2: 91% I/O last 3 completed shifts: In: 1613.5 [P.O.:390; I.V.:193.5; IV Piggyback:1030] Out: 2445 [Urine:2445] Physical Exam: General: Not in distress, appears comfortable HEENT: Normocephalic, no conjunctival pallor, no scleral icterus Cardiac: Normal rate; regular rhythm; audible S1 and S2 without appreciable murmurs, rubs, or gallops; 2+ radial pulses; no LE edema; no JVD nor hepato- jugular reflux Pulm: clear to auscultation bilaterally; no wheezes, rales, or rhonchi GI/Abd: Soft, nontender, nondistended MSK: Normal bulk and tone, no joint effusions or major deformities Skin: No rash or bruises Extremities: Warm and well perfused Neuro: AAO x 4, CN II-XII grossly intact, moves all extremities spontaneously Lab/Radiology/Diagnostic Review: Assessment Tiera Lobato is a 77 y.o. female with a PMH of pAF, Apical variant HCM, CAD with OR in 2012 s/p CABG with LAWSON to LAD and SVG to OM, HTN, DDD,diverticulitis, vertigo, prior DVT, OA who presents as an OSH transfer for AFib with RVR complicated by hemodynamic instability now rate controlled onoral dig / metop /amio found to have MRSA cellulitis and MRSA bacteremia with septic pulmonary emboli on Vanc. Plan #pAF with RVR Home regimen: metop 50mg daily. Previously on sotalol 80mg (15d supply last dispensed 02/07/23). TTE02/20 read LVEF 55-60, no valvular dz. S/p DCCV. - Continue Amio 400 TID - Transition to home Eliquis - s/p dig load. Maintenance dose 125mcg with daily dig level (may consider dc on 02/26 post cardioversion). - Metop 50 XL BID - EP c/s for help with medical management of AFib with RVR #MRSA cellulitis #MRSA bacteremia #Septic pulmonary emboli Positive cultures 02/14, but started empirically on vanc 02/12. In house read of OSH CT CAP with septic emboli in lungs, confirmed on repeat this admission. 02/20 Bcx+ within 24 hours MRSE 1/2 bottles, likely contaminant. TTE 02/20 read LVEF 55- 60, no valvular dz or vegetations. 02/20 LUE ultrasound with cellulitis with underlying myositis and small non-drainable fluid collection, verified by CT LUE without osteomyelitis. 02/20 ACCS c/s rec nonoperative. L PICC placed after initial + Bcx, okay to leave inper ID for Vanc course. 02/20 Bcx+ MRSE 1/2 bottles likely contaminant. - Continue Vanc with regular vanc trough - ID c/s with recs Vanc 4 weeks end (02/12 - 03/16) with PICC in place #HTN #HLD #CAD c/b OR s/p CABG #apical HCM No indication for triple therapy AC/antiplatelet at this time. Lipid panel with LDL 37, A1c 5.4. Home HTN regimen: lisinopril 10mg - Atorvastatin 80, Zetia, Plavix - Hold ASA given AC. - Hold BP meds given hypotension #R arm fracture Fracture after ground-level fall 02/06. S/p cast with plan for outpatient follow up. C/o swelling after ortho recast while here but neurovascular intact without numbness/tingling/loss of dexterity. Xray arm wit nondisplaced arm fracture. - RUE platform weight bearing - repeat XR 02/27 per Ortho to ensure no interval displacement #Anemia of Chronic disease Baseline 9-10. 8.0 on day of admission now stable at 7.4. Fe 24, Ferritin 299, TIBC 192, Tsat 13% suggestive of anemia of chronic disease. B12 1886, folate 15.3. - CTM #CKD 3a - stable Per chart review. Baseline Cr ~0.9. Currently at her baseline Cr. #IBS Current regimen: [id number] - continue Linaclotide #prior DVT Remote, unprovoked. Chronically on Eliquis. S/p DCCV. Resume Eliquis. #OA #DDD Current regimen: Voltaren gel, gabapentin 600mg QID - Lidocaine patches and APAP as needed, gabapentin 600mg BID - If breakthrough pain, can consider fentanyl patch #osteoporosis Currently on alendronate 70mg qWeekly - CTM, held inpt #GERD Home regimen: omeprazole 20mg - PPI #anxiety/depression - Continue Zoloft Ritika Serrano MD PhD Internal Medicine PGY-1 02/25/2023 6:01 PM Cosigned by Jose Roberto Santos MD PhD at 02/26/2023 3:31 PM CDT Associated attestation - Jose Roberto Santos MD PhD - 02/26/2023 3:31 PM CDT I have seen and examined the patient on 02/25/2023. I agree with the findings and plan of care as documented in the resident's/fellow's note.. * Eliud Pires MD - 02/25/2023 6:21 AM CDT CCU DAILY PROGRESS Patient: Tiera Lobato Room: [id number] Date: 02/25/2023 CCU Attending: Dr. Ellis Summary Statement: Tiera Lobato is a 77 y.o. female with a PMH of pAF, Apical variant HCM, CAD with OR in 2013 s/p CABG with LAWSON to LAD and SVG to OM, HTN, DDD,diverticulitis, vertigo, prior DVT, OA who presents as an OSH transfer for AFib with RVR complicated by hemodynamic instability now rate controlled onoral dig / metop /amio also found to have MRSA cellulitis and MRSA bacteremia with septic pulmonaryemboli on Vanc. SUBJECTIVE Overnight Events: -NAOE -NPO plan for HOOD/cardioversion today. MEDICATIONS Continuous: Scheduled Meds: PRN Meds: amiodarone, 400 mg, oral, TID apixaban, 5 mg, oral, BID atorvastatin, 80 mg, oral, Nightly calcium carbonate-vitamin D3, 1 tablet, oral, Daily clopidogreL, 75 mg, oral, Daily digoxin, 125 mcg, oral, Q24H ezetimibe, 10 mg, oral, Daily gabapentin, 600 mg, oral, BID lidocaine, 2 patch, transdermal, Daily linaCLOtide, 145 mcg, oral, Before breakfast metoprolol XL, 50 mg, oral, BID pantoprazole DR, 40 mg, oral, Daily sertraline, 50 mg, oral, Daily sodium chloride 0.9%, 5-10 mL, intra-catheter, Q12H AGUS vancomycin, 1,500 mg, intravenous, Q24H acetaminophen camphor-menthoL ondansetron prochlorperazine sodium chloride 0.9% OBJECTIVE Vitals: Vitals: 02/25/23 1000 BP: 134/73 Pulse: 86 Resp: 17 Temp: SpO2: Input and Output: Intake/Output Summary (Last 24 hours) at 02/25/2023 1152 Last data filed at 02/25/2023 0700 Gross per 24 hour Intake 815 ml Output 1440 ml Net -625 ml Physical Exam: Gen: No apparent distress. Resting comfortably. Cooperative. HEENT: No conjunctival pallor or injection, no icterus. No nasal discharge. No LAD. Moist mucus membranes. No exudates. No thyromegaly. Cardiac: irregularly irregular , normal S1/S2. No rubs, murmurs, or gallops. No S3/S4. No LE edema.No carotid bruits. Peripheral pulses 2+ bilaterally. Pulm: Clear to auscultation bilaterally. No wheezing or rhonchi. Abdomen: Soft. Bowel sounds present. No tenderness or distension. No hepatosplenomegaly. Extremity: Warm. No clubbing or cyanosis. L arm with forearm cellulitis is red but not indurated orfluctuant. R hand with swelling and ttp but neurovascular intact Neuro: Alert and orientedx4. CN II-XII grossly intact. Strength 5/5 in upper and lower extremities.Sensation intact throughout to light touch Skin: No lesions, erythema, or skin changes. Improved area of cellulitis rash on the Left forearm. Psych: Mood appropriate. Appropriate insight. I have reviewed the laboratory and imaging findings. ABG CBC Recent Labs Lab Units 02/24/23204902/23/23191902/22/[id number]/21/23203402/20/23201502/20/23 0351 02/19/23 0502 WBC K/cumm 6.5 7.6 6.6 7.2 7.8 5.4 4.7 HEMOGLOBIN g/dL 7.4* 8.0* 7.7* 7.8* 8.7* 8.0* 8.6* HEMATOCRIT % 23.1* 25.2* 24.3* 24.2* 26.6* 25.2* 25.6* PLATELETS K/cumm 283 310 282 287 282 291 274 MPV fL 11.6 12.3 11.8 11.8 11.8 12.3 11.8 RBC M/cumm 2.53* 2.76* 2.67* 2.63* 2.92* 2.73* 2.84* MCV fL 91.3 91.3 91.0 92.0 91.1 92.3 90.1 MCH pg 29.2 29.0 28.8 29.7 29.8 29.3 30.3 MCHC g/dL 32.0* 31.7* 31.7* 32.2* 32.7 31.7* 33.6 RDW CV % 14.1 14.3 14.2 14.4 14.1 14.2 13.9 RDWSD fL 46.5 47.6 47.4 48.3* 46.7 47.8 45.9 CMP Recent Labs Lab Units 02/24/23204902/23/23191902/23/23 0308 02/22/23200502/21/23203402/20/23201502/20/23 1655 SODIUM mmol/L 139 141 139 139 141 137 136 POTASSIUM PLASMA mmol/L 4.1 4.5 3.9 3.7 4.0 4.2 4.3 CHLORIDE mmol/L 105 105 104 103 106 104 101 CO2 mmol/L 29 28 27 27 27 25 25 BUN SERUM mg/dL 6 6 5* 5* 7 7 8 CREATININE mg/dL 1.07 0.93 0.95 0.96 0.90 0.88 0.87 CALCIUM mg/dL 9.6 9.4 9.2 9.0 9.5 9.4 9.4 BILIRUBIN TOTAL mg/dL -- -- 0.3 -- -- -- 0.4 TOTAL PROTEIN g/dL -- -- -- -- -- -- 6.2* ALBUMIN g/dL -- -- 2.8* -- -- -- 2.9* ALK PHOS Units/L -- -- 98 -- -- -- 117 ALT Units/L -- -- 17 -- -- -- 15 AST Units/L -- -- 21 -- -- -- 23 MAGNESIUM mg/dL 1.9 2.0 2.4 1.8 1.8 2.1 2.2 Dig 0.7 Vanc: 18.2 Recent Labs Lab Units 02/24/23204902/23/23 19202/23/2330702/22/23200502/22/23 1140 02/22/23 0735 02/21/23203402/21/23 1611 02/21/23 0736 02/20/23201502/20/23 1655 02/20/23 1110 GLUCOSE mg/dL 93 104 148 153 -- -- 111 -- -- 107 197 -- POC GLUCOSE MONITOR mg/dL -- -- -- -- 115 126 -- 108 115 -- -- 115 Inflammatory Markers CARDIAC Coags Recent Labs Lab Units 02/24/23 1041 02/24/23 0104 02/23/23 1827 02/23/23 1128 02/23/23 0308 02/22/23200702/21/23203502/21/23 0614 02/21/23 0005 02/20/23 2256 APTT sec 75* 42* 70* 113* 114* 97* 83* 85* 73* 125* Hemolysis Lipids THYROID Bleeding No lab exists for component: HAPTAGLOBIN VITAMINS AND IRON Lab Results Component Value Date IRON 24 (L) 02/23/2023 IRON 59 10/18/2022 TIBC 192 (L) 02/23/2023 TIBC 288 10/18/2022 TRANSFERSAT 13 (L) 02/23/2023 TRANSFERSAT 20 10/18/2022 FERRITIN 299 (H) 02/23/2023 FERRITIN 48 10/18/2022 VITB12 1,886 (H) 02/18/2023 VITB12 1,302 (H) 10/18/2022 FOLATE 15.3 02/18/2023 FOLATE 15.5 10/18/2022 UA Lab Results Component Value Date COLORU Straw 02/17/2023 CLARITYU Clear 02/17/2023 SPECGRAVU 1.016 02/17/2023 PHURINE 6.5 02/17/2023 PROTURQL 1+ (A) 02/17/2023 GLUCOSEUR Negative 02/17/2023 BLOODUR 2+ (A) 02/17/2023 UROBILINOGEN <2.0 02/17/2023 NITRITEU Negative 02/17/2023 LEUKESTUR Trace (A) 02/17/2023 UARFLXCMNT Reflex to microscopic UA will be performed. 02/17/2023 No results found for: SODIUMURR UA TOX No results found for: AMPHETUR , BARBITURATE , LABBENZUR , CANNABINOIDS , COCAINE , FENTUR , METHADONE , LABOPIA , OXYCODONE , PCPUR , URINECREATIN DIABETES Lab Results Component Value Date HGBA1C 5.8 (H) 02/18/2023 HGBA1C 5.5 09/04/2012 ESTAVGGLU 120 02/18/2023 ESTAVGGLU 111 09/04/2012 Micro: Lab Results Component Value Date MICROBIOLOGY Preliminary Report: No growth to date. 02/22/2023 MICROBIOLOGY Preliminary Report: No growth to date. 02/22/2023 MICROBIOLOGY (.) 02/20/2023 Final Report: Staphylococcus epidermidis Single blood culture positive for this microorganism. Isolate is a possible contaminant. If a similar isolate is recovered from a second blood culture collected within 3 days of this culture, both will be evaluated and, if determined to be the same species, antimicrobial susceptibility testing will be performed. Staphylococcus epidermidis #2 Single blood culture positive for this microorganism. Isolate is a possible contaminant. If a similar isolate is recovered from a second blood culture collected within 3 days of this culture, both will be evaluated and, if determined to be the same species, antimicrobial susceptibility testing will be performed. Staphylococcus hominis Single blood culture positive for this microorganism. Isolate is a possible contaminant. If a similar isolate is recovered from a second blood culture collected within 3 days of this culture, both will be evaluated and, if determined to be the same species, antimicrobial susceptibility testing will be performed. MICROBIOLOGY Final Report: No growth 02/20/2023 MICROBIOLOGY Final Report: Negative 02/17/2023 Imaging: No results found. ASSESSMENT and PLAN Tiera Lobato is a 77 y.o. female with a PMH of pAF, Apical variant HCM, CAD with OR in 2012 s/p CABG with LAWSON to LAD and SVG to OM, HTN, DDD,diverticulitis, vertigo, prior DVT, OA who presents as an OSH transfer for AFib with RVR complicated by hemodynamic instability now rate controlled onoral dig / metop /amio also found to have MRSA cellulitis and MRSA bacteremia with septic pulmonaryemboli on Vanc. #pAF with RVR Home regimen: metop 50mg daily. Previously on sotalol 80mg (15d supply last dispensed 02/07/23). TTE02/20 read LVEF 55-60, no valvular dz. - continue Amio 400 TID - transition to home Eliquis - s/p dig load. Maintenance dose 125mcg with daily dig level (consider changing this on 02/26 opost cardioversion). - Metop 50 XL BID - EP c/s for help with medical management of AFib with RVR -HOOD cardioversion scheduled 02/25; NPO [place] #MRSA cellulitis #MRSA bacteremia #Septic pulmonary emboli Positive cultures 02/14, but started empirically on vanc 02/12. In house read of OSH CT CAP with septic emboli in lungs, confirmed on repeat this admission. 02/20 Bcx+ within 24 hours MRSE 1/2 bottles, likely contaminant. TTE 02/20 read LVEF 55- 60, no valvular dz or vegetations. 02/20 LUE ultrasound with cellulitis with underlying myositis and small non-drainable fluid collection, which was verified by CTLUE without osteomyelitis. 02/20 ACCS c/s rec nonoperative. L PICC placed after initial + Bcx, okay to leave in per ID for Vanc course. 02/20 Bcx+ MRSE 1/2 bottles likely contaminant. - continue Vanc with regular vanc trough - ID c/s with recs Vanc 4 weeks end (02/12 - 03/16) -TOV, rich out #HTN #HLD #CAD c/b OR s/p CABG #apical HCM Increased interstitial infiltrates concerning for pulmonary edema versus multifocal PNA as below. Clinically not showing signs of overt fluid overload. Got multiple boluses fluid in OSH due to concern for sepsis and hypoTN. No indication for triple therapy AC/antiplatelet at this time. Lipid panel with LDL 37, A1c 5.4. Home HTN regimen: lisinopril 10mg -atorvastatin 80, Zetia, Plavix -Continue Plavix and AC -CTM off antiHTNsives given hypotension #R arm fracture Fracture after ground-level fall 02/06. S/p cast with plan for outpatient follow up. C/o swelling after ortho recast while here but neurovascular intact without numbness/tingling/loss of dexterity. - xray arm with nondisplaced arm fracture - RUE platform weight bearing - ortho c/s for arm fracture and cast take-down -repeat XR 02/27 per Ortho to ensure no interval displacement #Anemia of Chronic disease Baseline -. Likely bone marrow suppression in the setting of acute illness. Initially held off on iron studies given not a candidate for IV iron while bacteremic. Folate/B12 WNL. Absolute retic count consistent with hypoproliferation. - Likely qualifies for iron supplementation, consider when off of antibiotics. -CTM CBC Chronic-- #CKD 3a Per chart review. Baseline Cr ~0.9. Currently at her baseline Cr #IBS Current regimen: [id number] - continue Linaclotide - CTM #prior DVT Remote, unprovoked. Chronically on Eliquis - continue AC with heparin gtt #OA #DDD Current regimen: Voltaren gel, gabapentin 600mg QID - CTM - lidocaine patches and APAP as needed, gabapentin 600mg BID - if breakthrough pain, can consider fentanyl patch #osteoporosis Currently on alendronate 70mg qWeekly - CTM, held inpt #GERD Home regimen: omeprazole 20mg - PPI #anxiety/depression - continue Zoloft Checklist: - Procedures: Cardioversion - Diet: NPO Diet - Sugars: 104-153 - DVT Prophylaxis: Eliquis - Lines: PICC - Drains: none - Rich: removed - Last BM: Stool Occurrence Amount: Small (02/25/23 0700) - Bowel Reg: none - Stress Ulcer PPx: pantoprazole PO - PT/OT ordered: yes - Code status: Full Code Contact: Storm Lobato-- [phone] Attending MD to make comment on patient risk/complexity. Eliud Pires MD Internal Medicine PGY1 -- CCU Yellow Cosigned by Estella Ellis MD PhD at 02/25/2023 3:30 PM CDT Associated attestation - Estella Ellis MD PhD - 02/25/2023 3:30 PM CDT Critical Care Time: I have spent 35 minutes in full attendance with this critically ill patient making frequent reassessments and decisions regarding this patient's complex medical care. Critical care time was exclusive of separately billable procedures, treating other patients and teaching time. Critical care was necessary to treat or prevent imminent or life-threatening deterioration of the following conditions: Afib with RVR MRSA bacteremia Cellulitis Septic emboli of unclear etiology Apical HCM CAD s/p CABG MRSE bacteremia, suspected HISTORY No acute events overnight. Waiting for HOOD today. DIAGNOSTIC REVIEW Blood pressure (!) 113/42, pulse 60, temperature 37.6 ??C (99.7 ??F), temperature source Oral, resp. rate 20, height 162.6 cm (5' 4 ), weight 86 kg (189 lb 9.5 oz), SpO2 99 %. I have reviewed the pertinent laboratory test results, including: -Dig 0.7 -Cr 1.07 -CT: 1. Cellulitis and suspected phlegmonous changes of the left dorsolateral elbow soft tissues. No focal fluid collection or CT evidence of osteomyelitis. -Bcx: 02/20: MRSE (1/2) -TTE (02/20/23) - Afib during study which is technically difficult: LV size is normal. LVEF 55-60%. Apical hypertrophy present. Normal RV function. No significant valve disease. Estimated PASP 20mmHg+RA pressure. RA pressure is normal. ASSESSMENT AND PLAN: #. Afib / RVR - HR's relatively well controlled on current regimen. Continue amio, BB, digoxin. Plan HOOD/DCCV today. Remains on therapeutic A/C #. MRSA L arm cellulitis - remains on vancomycin. Trending levels. Repeat Bcx with MRSE (likely contaminant). Appreciate ID recs: planning on vancomycin through 03/16 #. Apical HCM - stable; CTM #. CAD - s/p CABG. Continue plaivx, statin #. DISPO - Transfer to floor today. Attending Documentation: I have seen and examined this patient on the day of service. I have reviewed and confirmed the history, physical exam, laboratory and radiographic data with the house staff as documented in the ICU resident note. I have reviewed and discussed my treatment plan with the ICU team and other medical/client service consultant staff. * Santino Amor - 02/24/2023 3:20 PM CDT Fr Santino Amor [phone] 02/24/23 1500 Time Spent Start Time 1130 Stop Time 1140 Time Calculation (min) 10 min Patient Spiritual Assessment Spirituality Assessed Focus of Care Quaker Affiliation Mormonism Spiritual Needs Anointing Clinical Encounter Type Visited With Patient Response Type Routine visit Routine Visit Introduction Reason for visit Sacramental;SMART (stroke team) Sacramental Encounters Sacrament of Sick-Anointing Anointed Outcomes and Progress Aligning care with patient's values Achieved Preserve dignity and respect Achieved Demonstrating care and respect Achieved Interventions Interventions Active listening;Offer spiritual/protestant support;Prayer (Benediction) * Adilia Venegas RD - 02/24/2023 2:32 PM CDT Nutrition Screen Note Pt. Screened for nutritional assessment secondary to LOS. Pt with PMH of pAF, Apical variant HCM, CAD with OR in 2013 s/p CABG with LAWSON to LAD and SVG to OM, HTN, DDD,diverticulitis, vertigo, prior DVT, OA who presents as an OSH transfer for AFib with RVR complicated by hemodynamic instability nowrate controlled on oral dig / metop /amio also found to have MRSA cellulitis and MRSA bacteremia with septic pulmonary emboli on Vanc. Past Medical History: Diagnosis Date Acid reflux Heart murmur High cholesterol History of blood clots 1960s in leg as teenager - had phlebitis History of OR (myocardial infarction) 2012 History of vertebral fracture 2017 HTN (hypertension) IBS (irritable bowel syndrome) Vertigo Past Surgical History: Procedure Laterality Date COLON SURGERY 1992 Repair burst colon CORONARY ARTERY BYPASS GRAFT 2012 Double by-pass - [facility] FLUORO GUIDED INJECTION HIP RIGHT Right 05/16/2022 FLUORO GUIDED INJECTION HIP RIGHT Right 08/15/2022 FLUORO GUIDED INJECTION HIP RIGHT Right 12/10/[address] James ([place], [place]) TOTAL KNEE ARTHROPLASTY Right 2018 Anthropometrics Weight: 86 kg (189 lb 9.5 oz) Admission Weight : 89.1 kg Weight Change: -1.09 kg (-2.42 lbs) IBW/kg (Calculated) : 54.4 kg Height: 162.6 cm (5' 4 ) Weight in (lb) to have BMI = 25: 145.3 BMI (Calculated): 32.5 Dietary Orders (From admission, onward) Start Ordered 02/25/23 0001 NPO Diet Diet effective midnight 02/24/23 1114 02/24/23 1115 Adult Diet Restricted; Low Fat, Low Chol, 2 GM Sodium Diet effective now Question Answer Comment ([facility]) Diet type Restricted Fat / Sodium Restriction: Low Fat, Low Chol Fat / Sodium Restriction: 2 GM Sodium 02/24/23 1114 Assessment / Impression:Pt reports she eats well at home, consuming 2 meals per day. UBW of 185#, stable per pt report. Pt appears nourished. Pt has been eating okay while admitted, reports appetite is slightly decreased but thinks she picked up her intake today. Pt does not want any oral supplements at this time. She reports no N/V. +BM yesterday. Pt aware of always available menu and snacks in pantry. RD following. Adilia Venegas MS RD LD #[phone] Wt Readings from Last 15 Encounters: 02/24/23 86 kg (189 lb 9.5 oz) 01/20/23 83 kg (182 lb 15.7 oz) 01/13/23 85.7 kg (189 lb) 11/27/22 78.7 kg (173 lb 9.6 oz) 10/18/22 84.6 kg (186 lb 8 oz) 05/01/22 79.8 kg (176 lb) 05/02/21 80.2 kg (176 lb 12.8 oz) 01/30/21 79.8 kg (176 lb) 09/28/20 80.5 kg (177 lb 6.4 oz) 12/29/19 78.8 kg (173 lb 12.8 oz) 12/23/18 76.5 kg (168 lb 9.6 oz) 12/10/17 76.8 kg (169 lb 6.4 oz) 06/11/17 79.8 kg (176 lb 0.2 oz) 10/23/16 81.9 kg (180 lb 7.9 oz) 11/06/15 79.6 kg (175 lb 8.1 oz) * Sami Moreau, OT - 02/24/2023 10:41 AM CDT Occupational Therapy Occupational Therapy Initial Assessment NOTE:This is a summary note for the martinez assessments completed during the evaluation session. For full details, review chart review for all flowsheets documented on by this Occupational Therapist on this date. Vital signs documented in vital signs flowsheet. Assessment Assessment Problem List: Decreased endurance, Decreased balance, Decreased functional mobility, Decreased ADL independence, Decreased IADL independence, Decreased upper extremity strength, Decreased upper extremity range of motion Barriers to Discharge: Current Mobility Status Plan Plan Plan: Plan of care initiated, If this is the last note, consider this the discharge summary OT Recommendation and Plan Recommendation/Plan OT Recommendation: Inpatient Rehab Facility Patient at high risk for: Falls, Readmission, Injury due to decreased ability to care for self, Injury due to reduced functional status, Injury due to balance deficits, Developing impaired skin integrity, Injury at home as patient has not returned to prior level of function Recommend Inpatient Rehab/Acute Rehab due to: Ability to actively participate in intensive therapy 3 hours/day, 5 days/week or 900 minutes per week, Highly motivated to participate in therapy, Not atbaseline due to impaired ability to complete ADLs, Impaired ability to complete functional mobility, Likely to return to the community at discharge with support system in place, Requires greater than25% physical assistance with most mobility tasks, Requires multiple therapy disciplines to address functional deficits, Requires greater than 25% physical assistance with most ADL tasks OT Frequency during current admission: 3-5x/wk Treatment/Interventions during current admission: ADL/IADL retraining, Balance Training, Bed mobility, Endurance training, Functional activity, Functional transfer training, Functional mobility training, Strengthening, Therapeutic activity, Therapeutic exercise OT - Next Appointment: 02/26/23 OT - OK to Discharge: No OT Evaluation Complete: Yes General Information General Chart Reviewed: Yes Session Type: Evaluation OT Received On: 02/24/23 Safe Environment: Arm band checked, Patient found sitting in chair Subjective: Agreeable to Therapy Family/Caregiver Present: No Occupational Therapy-Patient Goal: Get stronger. 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 Fall within the last 6 months: Yes Fall within the last 6 months comment: 1 recent fall resulting in R radial fracture Activities of Daily Living Grooming Grooming: Where assessed: Standing at sink Grooming: Level of assistance: Minimum Assist Grooming: Assistance with: Safety, Other (Comment) (balance) LE Dressing LE Dressing: Where assessed: Chair LE Dressing: Level of assistance: Moderate Assist LE Dressing: Assistance with: Don/doff R sock, Thread RLE into pants, Pull up over hips, Safety (balance) Toilet Transfers Toilet Transfers: Not tested Pain Pain Assessment Pain Assessment: No/denies pain Cognition Cognition Arousal/Alertness: Alert, Appropriate responses to stimuli Attention Span: Appears intact Orientation : Oriented X4 (person, place, time, situation) Following Commands: Follows all commands and directions without difficulty Safety Judgment: Good awareness of safety precautions Compliance/Behavior: Easy to engage Short Blessed Test What year is it now?: Correct What month is it now?: Correct Repeat this name and address after me: Storm Pruitt [address] [place] [address] Without looking at the clock, tell me what time it is: Correct-within one hour Count aloud backwards from 20-1: 0 Errors Say the months of the year backwards in reverse order: 1 Error Repeat the name and address I asked you to remember: 1 Error Short Blessed Total Score: 4 6 Clicks Balance Dynamic Sitting Balance Dynamic Sitting-Balance Support: No upper extremity supported, Feet supported Dynamic Sitting-Balance: Forward lean, Reaching for objects, Reaching across midline Dynamic Sitting-Sitting Surface: Chair Dynamic Sitting-Level of Assistance: Close supervision Dynamic Standing Balance Dynamic Standing-Balance Support: Unilateral upper extremity supported Dynamic Standing-Balance: Forward lean, Reaching for objects Dynamic Standing-Standing Surface: Floor Dynamic Standing-Level of Assistance: Minimum assistance Transfers Transfers Transfer: Yes Transfer 1 Transfer From 1: Sit Transfer Type 1: To and from Transfer to 1: Stand Technique 1: Sit to stand, Stand to sit Transfer Device 1: No device Transfer Level of Assistance 1: Moderate Assist Trials/Comments 1: Force production, balance Transfers 2 Trials/Comments 2: Simulated functional mobility performed with standing marches with min A for balance Bed Mobility Bed Mobility Bed Mobility: No RUE Assessment RUE Assessment RUE Assessment: Exceptions to WFL (Impacted 2/2 R radial fracture, no formal assessment performed) LUE Assessment LUE Assessment LUE Assessment: Within Functional Limits Safe Environment End of Session Safe Environment End of Therapy Session: Patient left in recliner, RN notified, Call light within reach, Overbed table within reach Other Comments OT Goals Multi-Disciplinary Problems (from Occupational Therapy) Active Problems Problem: Dressings Lower Extremities Start Date: 02/24/23 Goal Start Date Expected End Date End Date STG - Patient to complete lower body dressing 02/24/23 03/14/23 -- Goal Details: With supervision Problem: Dressing Upper Extremities Start Date: 02/24/23 Goal Start Date Expected End Date End Date STG - Patient will dress upper body 02/24/23 03/14/23 -- Goal Details: With supervision Problem: Grooming Start Date: 02/24/23 Goal Start Date Expected End Date End Date STG - Patient will complete grooming 02/24/23 03/14/23 -- Goal Details: in standing at bathroom sink with supervision Problem: Toileting Start Date: 02/24/23 Goal Start Date Expected End Date End Date STG - Patient will complete toileting tasks with 02/24/23 03/14/23 -- Goal Details: supervision Problem: Transfers Start Date: 02/24/23 Goal Start Date Expected End Date End Date STG - Patient will perform toilet transfer 02/24/23 03/14/23 -- Goal Details: to toilet in bathroom with supervision Problem: OT Misc Start Date: 02/24/23 Goal Start Date Expected End Date End Date OT LTG - Misc 1 02/24/23 03/31/23 -- Goal Details: Pt will complete ADLs with independence. * Tisha Moore, PT - 02/24/2023 10:37 AM CDT Physical Therapy Physical Therapy Progress Note NOTE: This is a summary note of the martinez components of the treatment session. For full details, review chart for all flowsheets documented on by this physical therapy clinician on this date. Vital signs documented in vital signs flowsheet. Care plan progress documented in Care Plan Activity. For questions, please review the treatment team and contact the PT or ASSISTANT TECHNICIAN currently assigned to this patient. If a physical therapy clinician is not assigned to this patient, please call [phone]. 02/24/23 1014 PT Last Visit Session Type Treatment PT Received On 02/24/23 Safe Environment Arm band checked;Patient found sitting in chair;Session completed bedside;Gait belt not utilized, see comment Subjective Agreeable to Therapy Family/Caregiver Present No Precautions Precautions Fall risk LUE Weight Bearing Other (Comments) RLE Weight Bearing (WB R hand, OK for platform weight bearing through the elbow) Pain Assessment Pain Assessment No/denies pain Cognition Arousal/Alertness Alert;Appropriate responses to stimuli Orientation Oriented X4 (person, place, time, situation) Following Commands Follows all commands and directions without difficulty Compliance/Behavior Easy to engage Static Sitting Balance Static Sitting-Balance Support No upper extremity supported;Feet supported Static Sitting-Sitting Surface Bed Static Sitting-Level of Assistance Close supervision Static Standing Balance Static Standing-Balance Support Bilateral upper extremity supported Static Standing-Standing Surface Floor Static Standing-Level of Assistance Minimum assistance Static Standing-Comment/# of Minutes with WW Bed Mobility 1 Bed Mobility From 1 Supine Bed Mobility Type 1 To Bed Mobility to 1 Edge of bed Level of Assistance 1 Moderate Assist Bed Mobility Comments 1 unable to progress RLE to EOB, dep assist for RLE Transfer 1 Transfer From 1 Sit Transfer Type 1 To and from Transfer to 1 Stand Technique 1 Sit to stand;Stand to sit Transfer Device 1 Hand held assist Transfer Level of Assistance 1 Moderate Assist Trials/Comments 1 x3 reps Transfers 2 Transfer From 2 Bed Transfer Type 2 To Transfer to 2 Chair with arms Technique 2 Stand and step Transfer Device 2 Hand held assist Transfer Level of Assistance 2 Minimum Assist Ambulation 1 Distance (ft) 1 50 Surface 1 Level tile Device 1 Wheeled walker;Platform attachment right Other Apparatus 1 Wheelchair follow Assistance 1 Minimum Assist;Minimal verbal cues;Minimal tactile cues Gait: Requires assist with 1 Maintaining balance;Maintaining hip extension Gait: Requires verbal cues to 1 Use assistive device safely;Improve upright posture;Pace activity Gait Deviations 1 Roma - decreased;Heel strike - decreased;Lateral trunk lean/sway;Posture - flexed;Shuffling;Step length - decreased Ambulation Comments 1 decreased roma due to R knee pain/decreased ROM Other Comments Other PT Comments VSS throughout with continued notable progression of mobility. Basic Mobility - 6 Click How much difficulty does the patient have: Turning over in bed 2 How much difficulty does the patient currently have: Sitting down and standing up from a chair witharms? 3 How much difficulty does the patient have: Moving from lying on back to sitting on the side of the bed? 2 How much difficulty does the patient have: Moving to and from a bed to a chair including wheelchair? 3 How much help does the patient currently need: Walk in hospital room? 3 How much help from another person does the patient currently need: Climbing 3-5 steps with a railing? 2 Total 6 Click Score (range 6-24) 15 Score Interpretation 36.97 Safe Environment End of Therapy Session Safe Environment End of Therapy Session Patient left in chair;RN notified;Call light within reach;Overbed table within reach Assessment Prognosis Good Problem List Gait deviations;Decreased strength;Decreased endurance;Impaired balance;Decreased mobility Barriers to Discharge Current Mobility Status Plan Plan Alter current plan;If this is the last note, consider this the discharge summary Recommendation/Plan PT Recommendation/Plan Inpatient Rehab Facility Patient at high risk for Falls;Readmission;Injury due to reduced functional status;Injury due to balance deficits;Injury at home as patient has not returned to prior level of function;Developing impaired skin integrity Recommend Inpatient Rehab/Acute Rehab due to Ability to actively participate in intensive therapy 3hours/day, 5 days/week or 900 minutes per week;Highly motivated to participate in therapy;Not at baseline due to impaired ability to complete ADLs;Impaired ability to complete functional mobility;Likely to return to the community at discharge with support system in place;Requires greater than 25% physical assistance with most mobility tasks;Requires greater than 25% physical assistance with most ADL tasks PT Frequency during current admission 3-5x/wk Treatment/Interventions during current admission Balance Training;Bed mobility;Endurance training;Functional activity;Functional transfer training;Gait training;Stair training;Strengthening;Therapeutic activity;Therapeutic exercise;Transfer training PT Equipment Recommended Wheeled walker (with RUE platform attachment) Progress during current admission Progressing toward goals PT - Next Appointment 02/25/23 PT - OK to Discharge No Multi-Disciplinary Problems (from Physical Therapy) Active Problems Problem: Mobility Start Date: 02/20/23 Goal Start Date Expected End Date End Date STG - Patient will ambulate 02/20/23 03/06/23 -- Goal Details: 250 ft, МАРИЯ REHMAN Problem: Transfers Start Date: 02/20/23 Goal Start Date Expected End Date End Date STG - Patient will perform bed mobility 02/20/23 03/06/23 -- Goal Details: IND Goal Start Date Expected End Date End Date STG - Patient will transfer sit to and from stand 02/20/23 03/06/23 -- Goal Details: МАРИЯ REHMAN Problem: PT Misc Start Date: 02/20/23 Goal Start Date Expected End Date End Date PT STG - Misc 1 02/20/23 02/27/23 -- Goal Details: Patient and caregivers will participate in and demonstrate understanding of therapeutic exercise and safe mobility strategies to improve independence with functional mobility. * Aleksey Mendez MD - 02/24/2023 6:27 AM CDT CCU DAILY PROGRESS Patient: Tiera Lobato Room: [id number] Date: 02/24/2023 CCU Attending: Dr. Ellis Summary Statement: Tiera Lobato is a 77 y.o. female with a PMH of pAF, Apical variant HCM, CAD with OR in 2012 s/p CABG with LAWSON to LAD and SVG to OM, HTN, DDD,diverticulitis, vertigo, prior DVT, OA who presents as an OSH transfer for AFib with RVR complicated by hemodynamic instability now rate controlled onoral dig / metop /amio also found to have MRSA cellulitis and MRSA bacteremia with septic pulmonaryemboli on Vanc. SUBJECTIVE Overnight Events: -NAOE Brief plan: -TTF -continue Vanc (end 03/16) -TOV rich out -HOOD cardioversion scheduled 02/25 -transitioned Heparin to Eliquis -increased Metop 50 XL BID MEDICATIONS Scheduled Meds: Current Facility-Administered Medications Medication Dose Route Frequency Provider Last Rate Last Admin acetaminophen (TYLENOL) tablet 1,000 mg 1,000 mg oral Q6H PRN Olimpia Long MD amiodarone in dextrose (NEXTERONE) 360 mg/200 mL (1.8 mg/mL) infusion (premix) 1 mg/min intravenousContinuous Olimpia Long MD 33.3 mL/hr at 02/18/23 0600 1 mg/min at 02/18/23 0600 atorvastatin (LIPITOR) tablet 80 mg 80 mg oral Nightly Olimpia Long MD calcium carbonate-vitamin D3 1,250mg (500mg elemental) - 5 mcg (200 units) per tablet 1 tablet 1 tablet oral Daily Olimpia Long MD clopidogreL (PLAVIX) tablet 75 mg 75 mg oral Daily Olimpia Long MD ezetimibe (ZETIA) tablet 10 mg 10 mg oral Daily Olimpia Long MD heparin 1,000 unit/mL injection 2,000 Units 2,000 Units intravenous Q6H PRN Olimpia Long MD Or heparin 1,000 unit/mL injection 3,000 Units 3,000 Units intravenous Q6H PRN Olimpia Long MD heparin in 0.9% sodium chloride 25,000 unit/250 mL infusion (premix) 0-33 Units/kg/hr intravenous Titrated Olimpia Long MD 11.62 mL/hr at 02/18/23 0600 14 Units/kg/hr at 02/18/23 0600 lidocaine (LIDODERM) 5 % patch 2 patch 2 patch transdermal Daily Olimpia Long MD [Held by Provider] linaCLOtide (LINZESS) capsule 145 mcg 145 mcg oral Before breakfast Olimpia Long MD ondansetron (ZOFRAN) injection 4 mg 4 mg intravenous Q8H PRN Aleksey Mendez MD pantoprazole DR (PROTONIX) extended release tablet 40 mg 40 mg oral Daily Olimpia Long MD potassium chloride ER (KLOR-CON) extended release tablet 20 mEq 20 mEq oral Once Aleksey Mendez MD prochlorperazine (COMPAZINE) injection 5 mg 5 mg intravenous Q6H PRN Olimpia Long MD 5 mg at 02/17/23 2143 sertraline (ZOLOFT) tablet 50 mg 50 mg oral Daily Olimpia Long MD PRN Meds: acetaminophen camphor-menthoL ondansetron prochlorperazine sodium chloride 0.9% OBJECTIVE Vitals: Vitals: 02/24/23 1045 BP: 125/71 Pulse: 105 Resp: 18 Temp: SpO2: 95% Input and Output: Intake/Output Summary (Last 24 hours) at 02/24/2023 1129 Last data filed at 02/24/2023 1000 Gross per 24 hour Intake 881.56 ml Output 1855 ml Net -973.44 ml Physical Exam: Gen: No apparent distress. Resting comfortably. Cooperative. HEENT: No conjunctival pallor or injection, no icterus. No nasal discharge. No LAD. Moist mucus membranes. No exudates. No thyromegaly. Cardiac: irregularly irregular , normal S1/S2. No rubs, murmurs, or gallops. No S3/S4. No LE edema.No carotid bruits. Peripheral pulses 2+ bilaterally. Pulm: Clear to auscultation bilaterally. No wheezing or rhonchi. Abdomen: Soft. Bowel sounds present. No tenderness or distension. No hepatosplenomegaly. Extremity: Warm. No clubbing or cyanosis. L arm with forearm cellulitis is red but not indurated orfluctuant. R hand with swelling and ttp but neurovascular intact Neuro: Alert and orientedx3. CN II-XII grossly intact. Strength 5/5 in upper and lower extremities.Sensation intact throughout to light touch Skin: No lesions, erythema, or skin changes. Psych: Mood appropriate. Appropriate insight. LABORATORY DATA CBC Recent Labs Lab Units 02/23/23 1920 WBC K/cumm 7.6 HEMOGLOBIN g/dL 8.0* HEMATOCRIT % 25.2* PLATELETS K/cumm 310 NEUTROS PCT % 53.6 LYMPHS PCT % 28.4 MONOS PCT % 10.8 EOS PCT % 5.0 Chem Recent Labs Lab Units 02/23/23 1920 SODIUM mmol/L 141 POTASSIUM PLASMA mmol/L 4.5 CHLORIDE mmol/L 105 CO2 mmol/L 28 ANIONGAP mmol/L 8 BUN SERUM mg/dL 6 CREATININE mg/dL 0.93 GLUCOSE mg/dL 104 CALCIUM mg/dL 9.4 LFTs Recent Labs Lab Units 02/23/23 0308 02/20/23 1655 ALK PHOS Units/L 98 117 BILIRUBIN TOTAL mg/dL 0.3 0.4 BILIRUBIN DIRECT mg/dL <0.2 <0.2 TOTAL PROTEIN g/dL -- 6.2* ALT Units/L 17 15 AST Units/L 21 23 Coags Recent Labs Lab Units 02/24/23 1041 02/18/23 0225 02/17/23 1743 APTT sec 75* < > 45* INR -- -- 1.78* < > = values in this interval not displayed. Cardiac Enzymes No results found for: TROPONINT Urine Analysis Recent Labs Lab Units 02/17/23 1827 COLOR U Straw CLARITY U Clear SPEC GRAV U 1.016 PH, URINE 6.5 PROTEIN UR QL 1+* GLUCOSE URQL Negative KETONES UR Negative BLOOD UR 2+* NITRITE UR Negative LEUKOCYTE ESTERASE UR Trace* ABG Screening Labs: Iron Studies Recent Labs Lab Units 02/23/23 0308 IRON mcg/dL 24* TIBC mcg/dL 192* Recent Labs Lab Units 02/23/23 0308 FERRITIN ng/mL 299* Cholesterol Recent Labs Lab Units 02/18/23 0426 CHOLESTEROL mg/dL 78 Hgb A1C Recent Labs Lab Units 02/18/23 0426 HEMOGLOBIN A1C % 5.8* Radiology and Other Diagnostics: 02/22: CT LUE w contrast: Contrast enhanced CT imaging of the entire left upper extremity demonstrates cutaneous thickening with underlying subcutaneous fluid and stranding overlying the dorsolateral aspect of the elbow. No drainable peripherally enhancing abscess is seen. No definite extension into the deep muscular fascia or joint. No elbow joint effusion. No focal osteopenia, periosteal reaction, or cortical erosive changes are seen to suggest osteomyelitis. No acute fracture or dislocation is seen. Alignment is anatomic. A left upper extremity peripherally inserted venous catheter is noted. The visualized left lung demonstrates a small left pleural effusion with associated atelectasis of the left lower lobe. Incomplete visualization of peripheral areas of nodularity in the left lung suspicious for septic emboli, better visualized on recent CT imaging of the chest. Left perinephric fluid and simple renal cysts are incompletely visualized. ASSESSMENT and PLAN Tiera Lobato is a 77 y.o. female with a PMH of pAF, Apical variant HCM, CAD with OR in 2013 s/p CABG with LAWSON to LAD and SVG to OM, HTN, DDD,diverticulitis, vertigo, prior DVT, OA who presents as an OSH transfer for AFib with RVR complicated by hemodynamic instability now rate controlled onoral dig / metop /amio also found to have MRSA cellulitis and MRSA bacteremia with septic pulmonaryemboli on Vanc. #pAF with RVR Home regimen: metop 50mg daily. Previously on sotalol 80mg (15d supply last dispensed 02/07/23). TTE02/20 read LVEF 55-60, no valvular dz. Adequately rate controlled on 02/22 with Metop 25mg q6hr, Dig 125mcg, Amio gtt 1. - continue Amio 400 TID - transition to home Eliquis - s/p dig load. Maintenance dose 125mcg with daily dig level - inc metop 50 XL BID - EP c/s for help with medical management of AFib with RVR -HOOD cardioversion scheduled 02/25; NPO MN #MRSA cellulitis #MRSA bacteremia #Septic pulmonary emboli Positive cultures 02/14, but started empirically on vanc 02/12. In house read of OSH CT CAP with septic emboli in lungs, confirmed on repeat this admission. 02/20 Bcx+ within 24 hours MRSE 1/2 bottles, likely contaminant. TTE 02/20 read LVEF 55- 60, no valvular dz or vegetations. 02/20 LUE ultrasound with cellulitis with underlying myositis and small non-drainable fluid collection, which was verified by CTLUE without osteomyelitis. 02/20 ACCS c/s rec nonoperative. L PICC placed after initial + Bcx, okay to leave in per ID for Vanc course. 02/20 Bcx+ MRSE 1/2 bottles likely contaminant. - continue Vanc with regular vanc trough - ID c/s with recs Vanc 4 weeks end (02/12 - 03/16) -TOV, rich out #HTN #HLD #CAD c/b OR s/p CABG #apical HCM Increased interstitial infiltrates concerning for pulmonary edema versus multifocal PNA as below. Clinically not showing signs of overt fluid overload. Got multiple boluses fluid in OSH due to concern for sepsis and hypoTN. No indication for triple therapy AC/antiplatelet at this time. Lipid panel with LDL 37, A1c 5.4. Home HTN regimen: lisinopril 10mg -atorvastatin 80, Zetia, Plavix -Continue Plavix and AC -CTM off antiHTNsives given hypotension #R arm fracture Fracture after ground-level fall 02/06. S/p cast with plan for outpatient follow up. C/o swelling after ortho recast while here but neurovascular intact without numbness/tingling/loss of dexterity. - xray arm with nondisplaced arm fracture - RUE platform weight bearing - ortho c/s for arm fracture and cast take-down -repeat XR 02/27 per Ortho to ensure no interval displacement #Anemia of Chronic disease Baseline -. Likely bone marrow suppression in the setting of acute illness. Initially held off on iron studies given not a candidate for IV iron while bacteremic. Folate/B12 WNL. Absolute retic count consistent with hypoproliferation. -CTM CBC Chronic-- #CKD 3a Per chart review. Baseline Cr ~0.9. Currently at her baseline Cr #IBS Current regimen: [id number] - continue Linaclotide - CTM #prior DVT Remote, unprovoked. Chronically on Eliquis - continue AC with heparin gtt #OA #DDD Current regimen: Voltaren gel, gabapentin 600mg QID - CTM - lidocaine patches and APAP as needed, gabapentin 600mg BID - if breakthrough pain, can consider fentanyl patch #osteoporosis Currently on alendronate 70mg qWeekly - CTM, held inpt #GERD Home regimen: omeprazole 20mg - PPI #anxiety/depression - continue Zoloft Checklist: - Procedures: Cardioversion - Diet: Adult Diet Restricted; Low Fat, Low Chol, 2 GM Sodium NPO Diet - Sugars: 104-153 - DVT Prophylaxis: Eliquis - Lines: PICC Triple Lumen 02/19/23 Non-tunneled Power #1 Doe, #2 Red, #3 White, Left Basilic;Upper arm (Active) Placement Date/Time: 02/19/23 1421 Catheter Time Out Checklist Completed: Yes Hand Hygiene Performed: Yes Site Prep: Chlorhexidine Site Prep Agent has Completely Dried Before Insertion: Yes All 5 Sterile Barriers or Appropriate Barriers Used (Gl... Number of days: 1 Urethral Catheter (Active) Placement Date/Time: 02/21/23 0131 Tube Size (Fr.): 16 Fr Catheter Balloon Size: 10 mL Urine Returned: Yes Number of days: 0 - Drains: none - Rich: 02/21 - Last BM: Stool Occurrence Amount: Small (02/23/23 1900) - Bowel Reg: none - Stress Ulcer PPx: pantoprazole PO - PT/OT ordered: yes - Code status: Full Code Contact: Storm Nicollenelikathy-- [phone] Attending MD to make comment on patient risk/complexity. Aleksey Mendez MD Internal Medicine PGY1 -- CCU Yellow Cosigned by Estella Ellis MD PhD at 02/24/2023 12:17 PM CDT Associated attestation - Estella Ellis MD PhD - 02/24/2023 12:17 PM CDT Critical Care Time: I have spent 35 minutes in full attendance with this critically ill patient making frequent reassessments and decisions regarding this patient's complex medical care. Critical care time was exclusive of separately billable procedures, treating other patients and teaching time. Critical care was necessary to treat or prevent imminent or life-threatening deterioration of the following conditions: Afib with RVR MRSA bacteremia Cellulitis Septic emboli of unclear etiology Apical HCM CAD s/p CABG MRSE bacteremia, suspected HISTORY No acute events overnight. Feels well this AM. DIAGNOSTIC REVIEW Blood pressure 125/71, pulse 105, temperature 37.1 ??C (98.8 ??F), temperature source Axillary, resp. rate 18, height 162.6 cm (5' 4 ), weight 86 kg (189 lb 9.5 oz), SpO2 95 %. I have reviewed the pertinent laboratory test results, including: -Dig 0.8 -Cr 0.93 -CT: 1. Cellulitis and suspected phlegmonous changes of the left dorsolateral elbow soft tissues. No focal fluid collection or CT evidence of osteomyelitis. -Bcx: 02/20: MRSE (06/17) -TTE (02/20/23) - Afib during study which is technically difficult: LV size is normal. LVEF 55-60%. Apical hypertrophy present. Normal RV function. No significant valve disease. Estimated PASP 20mmHg+RA pressure. RA pressure is normal. ASSESSMENT AND PLAN: #. Afib / RVR - HR's relatively well controlled on current regimen. Continue amio, BB, digoxin. Plan HOOD/DCCV tomorrow AM. Remains on therapeutic A/C (will switch to Eliquis) #. MRSA L arm cellulitis - remains on vancomycin. Trending levels. Repeat Bcx with MRSE (likely contaminant). Appreciate ID recs: planning on vancomycin through 03/16 #. Apical HCM - stable; CTM #. CAD - s/p CABG. Continue plaivx, statin #. DISPO - Transfer to floor today. Attending Documentation: I have seen and examined this patient on the day of service. I have reviewed and confirmed the history, physical exam, laboratory and radiographic data with the house staff as documented in the ICU resident note. I have reviewed and discussed my treatment plan with the ICU team and other medical/client service consultant staff. * Aleksey Mendez MD - 02/23/2023 6:29 AM CDT CCU DAILY PROGRESS Patient: Tiera Lobato Room: [id number] Date: 02/23/2023 CCU Attending: Dr. Ellis Summary Statement: Tiera Lobato is a 77 y.o. female with a PMH of pAF, Apical variant HCM, CAD with OR in 2012 s/p CABG with LAWSON to LAD and SVG to OM, HTN, DDD,diverticulitis, vertigo, prior DVT, OA who presents as an OSH transfer for AFib with RVR complicated by hemodynamic instability now rate controlled onoral dig / metop /amio also found to have MRSA cellulitis and MRSA bacteremia with septic pulmonaryemboli on Vanc. SUBJECTIVE Overnight Events: -NAOE Brief plan: -TTF -continue Vanc (end 03/16) -Amio gtt -> Amio 400 TID -02/20 Bcx+ MRSE 1/2 -cardioversion with OUTLET MANAGER / anesthesia tomorrow MEDICATIONS Scheduled Meds: Current Facility-Administered Medications Medication Dose Route Frequency Provider Last Rate Last Admin acetaminophen (TYLENOL) tablet 1,000 mg 1,000 mg oral Q6H PRN Olimpia Long MD amiodarone in dextrose (NEXTERONE) 360 mg/200 mL (1.8 mg/mL) infusion (premix) 1 mg/min intravenousContinuous Olimpia Long MD 33.3 mL/hr at 02/18/23 0600 1 mg/min at 02/18/23 0600 atorvastatin (LIPITOR) tablet 80 mg 80 mg oral Nightly Olimpia Long MD calcium carbonate-vitamin D3 1,250mg (500mg elemental) - 5 mcg (200 units) per tablet 1 tablet 1 tablet oral Daily Olimpia Long MD clopidogreL (PLAVIX) tablet 75 mg 75 mg oral Daily Olimpia Long MD ezetimibe (ZETIA) tablet 10 mg 10 mg oral Daily Olimpia Long MD heparin 1,000 unit/mL injection 2,000 Units 2,000 Units intravenous Q6H PRN Olimpia Long MD Or heparin 1,000 unit/mL injection 3,000 Units 3,000 Units intravenous Q6H PRN Olimpia Long MD heparin in 0.9% sodium chloride 25,000 unit/250 mL infusion (premix) 0-33 Units/kg/hr intravenous Titrated Olimpia Long MD 11.62 mL/hr at 02/18/23 0600 14 Units/kg/hr at 02/18/23 0600 lidocaine (LIDODERM) 5 % patch 2 patch 2 patch transdermal Daily Olimpia Long MD [Held by Provider] linaCLOtide (LINZESS) capsule 145 mcg 145 mcg oral Before breakfast Olimpia Long MD ondansetron (ZOFRAN) injection 4 mg 4 mg intravenous Q8H PRN Aleksey Mendez MD pantoprazole DR (PROTONIX) extended release tablet 40 mg 40 mg oral Daily Olimpia Long MD potassium chloride ER (KLOR-CON) extended release tablet 20 mEq 20 mEq oral Once Aleksey Mendez MD prochlorperazine (COMPAZINE) injection 5 mg 5 mg intravenous Q6H PRN Olimpia Long MD 5 mg at 02/17/23 2143 sertraline (ZOLOFT) tablet 50 mg 50 mg oral Daily Olimpia Long MD PRN Meds: acetaminophen camphor-menthoL heparin OR heparin ondansetron prochlorperazine sodium chloride 0.9% OBJECTIVE Vitals: Vitals: 02/23/23 1100 BP: 123/75 Pulse: 90 Resp: 15 Temp: SpO2: 96% Input and Output: Intake/Output Summary (Last 24 hours) at 02/23/2023 1228 Last data filed at 02/23/2023 1100 Gross per 24 hour Intake 1626.66 ml Output 2235 ml Net -608.34 ml Physical Exam: Gen: No apparent distress. Resting comfortably. Cooperative. HEENT: No conjunctival pallor or injection, no icterus. No nasal discharge. No LAD. Moist mucus membranes. No exudates. No thyromegaly. Cardiac: irregularly irregular , normal S1/S2. No rubs, murmurs, or gallops. No S3/S4. No LE edema.No carotid bruits. Peripheral pulses 2+ bilaterally. Pulm: Clear to auscultation bilaterally. No wheezing or rhonchi. Abdomen: Soft. Bowel sounds present. No tenderness or distension. No hepatosplenomegaly. Extremity: Warm. No clubbing or cyanosis. L arm with forearm cellulitis is red but not indurated orfluctuant. R hand with swelling and ttp but neurovascular intact Neuro: Alert and orientedx3. CN II-XII grossly intact. Strength 5/5 in upper and lower extremities.Sensation intact throughout to light touch Skin: No lesions, erythema, or skin changes. Psych: Mood appropriate. Appropriate insight. LABORATORY DATA CBC Recent Labs Lab Units 02/22/232005 WBC K/cumm 6.6 HEMOGLOBIN g/dL 7.7* HEMATOCRIT % 24.3* PLATELETS K/cumm 282 NEUTROS PCT % 49.9 LYMPHS PCT % 30.3 MONOS PCT % 10.2 EOS PCT % 6.2 Chem Recent Labs Lab Units 02/23/23 0308 SODIUM mmol/L 139 POTASSIUM PLASMA mmol/L 3.9 CHLORIDE mmol/L 104 CO2 mmol/L 27 ANIONGAP mmol/L 8 BUN SERUM mg/dL 5* CREATININE mg/dL 0.95 GLUCOSE mg/dL 148 CALCIUM mg/dL 9.2 LFTs Recent Labs Lab Units 02/20/23 1655 ALK PHOS Units/L 117 BILIRUBIN TOTAL mg/dL 0.4 BILIRUBIN DIRECT mg/dL <0.2 TOTAL PROTEIN g/dL 6.2* ALT Units/L 15 AST Units/L 23 Coags Recent Labs Lab Units 02/23/23 1128 02/18/23 0225 02/17/23 1743 APTT sec 113* < > 45* INR -- -- 1.78* < > = values in this interval not displayed. Cardiac Enzymes No results found for: TROPONINT Urine Analysis Recent Labs Lab Units 02/17/23 1827 COLOR U Straw CLARITY U Clear SPEC GRAV U 1.016 PH, URINE 6.5 PROTEIN UR QL 1+* GLUCOSE URQL Negative KETONES UR Negative BLOOD UR 2+* NITRITE UR Negative LEUKOCYTE ESTERASE UR Trace* ABG Screening Labs: Iron Studies Recent Labs Lab Units 02/23/23 0308 IRON mcg/dL 24* TIBC mcg/dL 192* Recent Labs Lab Units 02/23/23 0308 FERRITIN ng/mL 299* Cholesterol Recent Labs Lab Units 02/18/23 0426 CHOLESTEROL mg/dL 78 Hgb A1C Recent Labs Lab Units 02/18/23 0426 HEMOGLOBIN A1C % 5.8* Radiology and Other Diagnostics: 02/22: CT LUE w contrast: Contrast enhanced CT imaging of the entire left upper extremity demonstrates cutaneous thickening with underlying subcutaneous fluid and stranding overlying the dorsolateral aspect of the elbow. No drainable peripherally enhancing abscess is seen. No definite extension into the deep muscular fascia or joint. No elbow joint effusion. No focal osteopenia, periosteal reaction, or cortical erosive changes are seen to suggest osteomyelitis. No acute fracture or dislocation is seen. Alignment is anatomic. A left upper extremity peripherally inserted venous catheter is noted. The visualized left lung demonstrates a small left pleural effusion with associated atelectasis of the left lower lobe. Incomplete visualization of peripheral areas of nodularity in the left lung suspicious for septic emboli, better visualized on recent CT imaging of the chest. Left perinephric fluid and simple renal cysts are incompletely visualized. ASSESSMENT and PLAN Tiera Lobato is a 77 y.o. female with a PMH of pAF, Apical variant HCM, CAD with OR in 2013 s/p CABG with LAWSON to LAD and SVG to OM, HTN, DDD,diverticulitis, vertigo, prior DVT, OA who presents as an OSH transfer for AFib with RVR complicated by hemodynamic instability now rate controlled onoral dig / metop /amio also found to have MRSA cellulitis and MRSA bacteremia with septic pulmonaryemboli on Vanc. #pAF with RVR Home regimen: metop 50mg daily. Previously on sotalol 80mg (15d supply last dispensed 02/07/23). TTE02/20 read LVEF 55-60, no valvular dz. Adequately rate controlled on 02/22 with Metop 25mg q6hr, Dig 125mcg, Amio gtt 1. - transition to Amio 400 TID - heparin gtt. Holding Eliquis iso possible ablation - s/p dig load. Maintenance dose 125mcg with daily dig level - cont metop 25mg q6h - EP c/s for help with medical management of AFib with RVR -cardioversion with OUTLET MANAGER / anesthesia tomorrow #MRSA cellulitis #MRSA bacteremia #Septic pulmonary emboli Positive cultures 02/14, but started empirically on vanc 02/12. In house read of OSH CT CAP with septic emboli in lungs, confirmed on repeat this admission. 02/20 Bcx+ within 24 hours MRSE 1/2 bottles, likely contaminant. TTE 02/20 read LVEF 55- 60, no valvular dz or vegetations. 02/20 LUE ultrasound with cellulitis with underlying myositis and small non-drainable fluid collection, which was verified by CTLUE without osteomyelitis. 02/20 ACCS c/s rec nonoperative. L PICC placed after initial + Bcx, okay to leave in per ID for Vanc course. 02/20 Bcx+ MRSE 1/2 bottles likely contaminant. - continue Vanc with regular vanc trough - ID c/s with recs Vanc 4 weeks end (02/12 - 03/16) - daily Bcx until clear 48hrs #HTN #HLD #CAD c/b OR s/p CABG #apical HCM Increased interstitial infiltrates concerning for pulmonary edema versus multifocal PNA as below. Clinically not showing signs of overt fluid overload. Got multiple boluses fluid in OSH due to concern for sepsis and hypoTN. No indication for triple therapy AC/antiplatelet at this time. Lipid panel with LDL 37, A1c 5.4. Home HTN regimen: lisinopril 10mg -atorvastatin 80, Zetia, Plavix -Continue Plavix and AC -CTM off antiHTNsives given hypotension #R arm fracture Fracture after ground-level fall 02/06. S/p cast with plan for outpatient follow up. C/o swelling after ortho recast while here but neurovascular intact without numbness/tingling/loss of dexterity. - xray arm with nondisplaced arm fracture - RUE platform weight bearing - ortho c/s for arm fracture and cast take-down -repeat XR 02/27 per Ortho to ensure no interval displacement #Anemia of Chronic disease Baseline 9-. Likely bone marrow suppression in the setting of acute illness. Initially held off on iron studies given not a candidate for IV iron while bacteremic. Folate/B12 WNL. Absolute retic count consistent with hypoproliferation. -CTM CBC Chronic-- #CKD 3a Per chart review. Baseline Cr ~0.9. Currently at her baseline Cr #IBS Current regimen: [id number] - continue Linaclotide - CTM #prior DVT Remote, unprovoked. Chronically on Eliquis - continue AC with heparin gtt #OA #DDD Current regimen: Voltaren gel, gabapentin 600mg QID - CTM - lidocaine patches and APAP as needed, gabapentin 600mg BID - if breakthrough pain, can consider fentanyl patch #osteoporosis Currently on alendronate 70mg qWeekly - CTM, held inpt #GERD Home regimen: omeprazole 20mg - PPI #anxiety/depression - continue Zoloft Checklist: - Procedures: Cardioversion - Diet: Adult Diet Restricted; Low Fat, Low Chol, 2 GM Sodium - Sugars: 128-209 - DVT Prophylaxis: heparin gtt - Lines: PICC Triple Lumen 02/19/23 Non-tunneled Power #1 Doe, #2 Red, #3 White, Left Basilic;Upper arm (Active) Placement Date/Time: 02/19/23 1421 Catheter Time Out Checklist Completed: Yes Hand Hygiene Performed: Yes Site Prep: Chlorhexidine Site Prep Agent has Completely Dried Before Insertion: Yes All 5 Sterile Barriers or Appropriate Barriers Used (Gl... Number of days: 1 Urethral Catheter (Active) Placement Date/Time: 02/21/23 0131 Tube Size (Fr.): 16 Fr Catheter Balloon Size: 10 mL Urine Returned: Yes Number of days: 0 - Drains: none - Rich: 02/21 - Last BM: Stool Occurrence Amount: Medium (02/22/23 1300) - Bowel Reg: none - Stress Ulcer PPx: pantoprazole PO - PT/OT ordered: yes - Code status: Full Code Contact: Storm Lobato-- [phone] Attending MD to make comment on patient risk/complexity. Aleksey Mendez MD Internal Medicine PGY1 -- CCU Yellow Cosigned by Estella Ellis MD PhD at 02/23/2023 2:50 PM CDT Associated attestation - Estella Ellis MD PhD - 02/23/2023 2:50 PM CDT Critical Care Time: I have spent 35 minutes in full attendance with this critically ill patient making frequent reassessments and decisions regarding this patient's complex medical care. Critical care time was exclusive of separately billable procedures, treating other patients and teaching time. Critical care was necessary to treat or prevent imminent or life-threatening deterioration of the following conditions: Afib with RVR MRSA bacteremia Cellulitis Septic emboli of unclear etiology Apical HCM CAD s/p CABG MRSE bacteremia, suspected HISTORY No acute events overnight. Feels well this AM. No RVR overnight. DIAGNOSTIC REVIEW Blood pressure 123/75, pulse 90, temperature 36.6 ??C (97.9 ??F), temperature source Axillary, resp. rate 15, height 162.6 cm (5' 4 ), weight 87.1 kg (192 lb 0.3 oz), SpO2 96 %. I have reviewed the pertinent laboratory test results, including: -Dig 1.0 -Cr 0.95 -CT: 1. Cellulitis and suspected phlegmonous changes of the left dorsolateral elbow soft tissues. No focal fluid collection or CT evidence of osteomyelitis. -Bcx: 02/20: MRSE (06/17) -TTE (02/20/23) - Afib during study which is technically difficult: LV size is normal. LVEF 55-60%. Apical hypertrophy present. Normal RV function. No significant valve disease. Estimated PASP 20mmHg+RA pressure. RA pressure is normal. ASSESSMENT AND PLAN: #. Afib / RVR - HR's relatively well controlled on current regimen. Continue amio, BB, digoxin. Plan DCCV tomorrow AM. Remains on therapeutic A?C #. MRSA L arm cellulitis - remains on vancomycin. Trending levels. Repeat Bcx with MRSE. AppreciateID recs. Of note, has prostethic knee, so will likely need longer term abx. #. Apical HCM - stable; CTM #. CAD - s/p CABG. Continue plaivx, statin #. DISPO - Transfer to floor today. Attending Documentation: I have seen and examined this patient on the day of service. I have reviewed and confirmed the history, physical exam, laboratory and radiographic data with the house staff as documented in the ICU resident note. I have reviewed and discussed my treatment plan with the ICU team and other medical/client service consultant staff. * Aleksey Mendez MD - 02/22/2023 6:36 AM CDT CCU DAILY PROGRESS Patient: Tiera Lobato Room: [id number] Date: 02/22/2023 CCU Attending: Dr. Ellis SUBJECTIVE Overnight Events: - dig level 1.1. Continued maintenance dose Brief plan: -continue Vanc (end 03/16) -Bcx 02/20 with MRSE in 1/2 bottles -transfer to floor -consider cardioversion with OUTLET MANAGER / anesthesia before discharge MEDICATIONS Scheduled Meds: Current Facility-Administered Medications Medication Dose Route Frequency Provider Last Rate Last Admin acetaminophen (TYLENOL) tablet 1,000 mg 1,000 mg oral Q6H PRN Olimpia Long MD amiodarone in dextrose (NEXTERONE) 360 mg/200 mL (1.8 mg/mL) infusion (premix) 1 mg/min intravenousContinuous Olimpia Long MD 33.3 mL/hr at 02/18/23 0600 1 mg/min at 02/18/23 0600 atorvastatin (LIPITOR) tablet 80 mg 80 mg oral Nightly Olimpia Long MD calcium carbonate-vitamin D3 1,250mg (500mg elemental) - 5 mcg (200 units) per tablet 1 tablet 1 tablet oral Daily Olimpia Long MD clopidogreL (PLAVIX) tablet 75 mg 75 mg oral Daily Olimpia Long MD ezetimibe (ZETIA) tablet 10 mg 10 mg oral Daily Olimpia Long MD heparin 1,000 unit/mL injection 2,000 Units 2,000 Units intravenous Q6H PRN Olimpia Long MD Or heparin 1,000 unit/mL injection 3,000 Units 3,000 Units intravenous Q6H PRN Olimpia Long MD heparin in 0.9% sodium chloride 25,000 unit/250 mL infusion (premix) 0-33 Units/kg/hr intravenous Titrated Olimpia Long MD 11.62 mL/hr at 02/18/23 0600 14 Units/kg/hr at 02/18/23 0600 lidocaine (LIDODERM) 5 % patch 2 patch 2 patch transdermal Daily Olimpia Long MD [Held by Provider] linaCLOtide (LINZESS) capsule 145 mcg 145 mcg oral Before breakfast Olimpia Long MD ondansetron (ZOFRAN) injection 4 mg 4 mg intravenous Q8H PRN Aleksey Mendez MD pantoprazole DR (PROTONIX) extended release tablet 40 mg 40 mg oral Daily Olimpia Long MD potassium chloride ER (KLOR-CON) extended release tablet 20 mEq 20 mEq oral Once Aleksey Mendez MD prochlorperazine (COMPAZINE) injection 5 mg 5 mg intravenous Q6H PRN Olimpia Long MD 5 mg at 02/17/23 2143 sertraline (ZOLOFT) tablet 50 mg 50 mg oral Daily Olimpia Long MD PRN Meds: acetaminophen heparin OR heparin ondansetron prochlorperazine sodium chloride 0.9% OBJECTIVE Vitals: Vitals: 02/22/23 1300 BP: 112/58 Pulse: 94 Resp: 19 Temp: SpO2: 96% Input and Output: Intake/Output Summary (Last 24 hours) at 02/22/2023 1335 Last data filed at 02/22/2023 1300 Gross per 24 hour Intake 2257.84 ml Output 2445 ml Net -187.16 ml Physical Exam: Gen: No apparent distress. Resting comfortably. Cooperative. HEENT: No conjunctival pallor or injection, no icterus. No nasal discharge. No LAD. Moist mucus membranes. No exudates. No thyromegaly. Cardiac: irregularly irregular , normal S1/S2. No rubs, murmurs, or gallops. No S3/S4. No LE edema.No carotid bruits. Peripheral pulses 2+ bilaterally. Pulm: Clear to auscultation bilaterally. No wheezing or rhonchi. Abdomen: Soft. Bowel sounds present. No tenderness or distension. No hepatosplenomegaly. Extremity: Warm. No clubbing or cyanosis. L arm with forearm cellulitis is red but not indurated orfluctuant. R hand with swelling and ttp but neurovascular intact Neuro: Alert and orientedx3. CN II-XII grossly intact. Strength 5/5 in upper and lower extremities.Sensation intact throughout to light touch Skin: No lesions, erythema, or skin changes. Psych: Mood appropriate. Appropriate insight. LABORATORY DATA CBC Recent Labs Lab Units 02/21/232034 WBC K/cumm 7.2 HEMOGLOBIN g/dL 7.8* HEMATOCRIT % 24.2* PLATELETS K/cumm 287 NEUTROS PCT % 59.9 LYMPHS PCT % 22.5 MONOS PCT % 11.4 EOS PCT % 4.0 Chem Recent Labs Lab Units 02/22/23 1140 02/22/23 0735 02/21/232034 SODIUM mmol/L -- -- 141 POTASSIUM PLASMA mmol/L -- -- 4.0 CHLORIDE mmol/L -- -- 106 CO2 mmol/L -- -- 27 ANIONGAP mmol/L -- -- 8 BUN SERUM mg/dL -- -- 7 CREATININE mg/dL -- -- 0.90 GLUCOSE mg/dL -- -- 111 POC GLUCOSE MONITOR mg/dL 115 < > -- CALCIUM mg/dL -- -- 9.5 < > = values in this interval not displayed. LFTs Recent Labs Lab Units 02/20/23 1655 ALK PHOS Units/L 117 BILIRUBIN TOTAL mg/dL 0.4 BILIRUBIN DIRECT mg/dL <0.2 TOTAL PROTEIN g/dL 6.2* ALT Units/L 15 AST Units/L 23 Coags Recent Labs Lab Units 02/21/23 2036 02/18/23 0225 02/17/23 1743 APTT sec 83* < > 45* INR -- -- 1.78* < > = values in this interval not displayed. Cardiac Enzymes No results found for: TROPONINT Urine Analysis Recent Labs Lab Units 02/17/23 1827 COLOR U Straw CLARITY U Clear SPEC GRAV U 1.016 PH, URINE 6.5 PROTEIN UR QL 1+* GLUCOSE URQL Negative KETONES UR Negative BLOOD UR 2+* NITRITE UR Negative LEUKOCYTE ESTERASE UR Trace* ABG Screening Labs: Iron Studies Cholesterol Recent Labs Lab Units 02/18/23 0426 CHOLESTEROL mg/dL 78 Hgb A1C Recent Labs Lab Units 02/18/23 0426 HEMOGLOBIN A1C % 5.8* Radiology and Other Diagnostics: 02/22: CT LUE w contrast: Contrast enhanced CT imaging of the entire left upper extremity demonstrates cutaneous thickening with underlying subcutaneous fluid and stranding overlying the dorsolateral aspect of the elbow. No drainable peripherally enhancing abscess is seen. No definite extension into the deep muscular fascia or joint. No elbow joint effusion. No focal osteopenia, periosteal reaction, or cortical erosive changes are seen to suggest osteomyelitis. No acute fracture or dislocation is seen. Alignment is anatomic. A left upper extremity peripherally inserted venous catheter is noted. The visualized left lung demonstrates a small left pleural effusion with associated atelectasis of the left lower lobe. Incomplete visualization of peripheral areas of nodularity in the left lung suspicious for septic emboli, better visualized on recent CT imaging of the chest. Left perinephric fluid and simple renal cysts are incompletely visualized. ASSESSMENT and PLAN Tiera Lobato is a 77 y.o. female with a PMH of pAF, Apical variant HCM, CAD with OR in 2013 s/p CABG with LAWSON to LAD and SVG to OM, HTN, DDD,diverticulitis, vertigo, prior DVT, OA who presents as an OSH transfer for AFib with RVR complicated by hemodynamic instability now rate controlled ondig / metop. #pAF with RVR Home regimen: metop 50mg daily. Previously on sotalol 80mg (15d supply last dispensed 02/07/23). TTE02/20 read LVEF 55-60, no valvular dz. Adequately rate controlled on 02/22 with Metop 25mg q6hr, Dig 125mcg. - amiodarone gtt - heparin gtt. Holding Eliquis iso possible ablation - s/p dig load. Maintenance dose 125mcg with daily dig level - cont metop 25mg q6h - EP c/s for help with medical management of AFib with RVR -consider cardioversion with OUTLET MANAGER / anesthesia before discharge #MRSA cellulitis #MRSA bacteremia #Septic pulmonary emboli Positive cultures 02/14, but started empirically on vanc 02/12. In house read of OSH CT CAP with septic emboli in lungs, confirmed on repeat this admission. 02/20 Bcx+ within 24 hours MRSE 1/2 bottles, likely contaminant. TTE 02/20 read LVEF 55- 60, no valvular dz or vegetations. 02/20 LUE ultrasound with cellulitis with underlying myositis and small non-drainable fluid collection, which was verified by CTLUE without osteomyelitis. 02/20 ACCS c/s rec nonoperative. L PICC placed after initial + Bcx, okay to leave in per ID for Vanc course. - continue Vanc with regular vanc trough - ID c/s with recs Vanc 4 weeks end (02/12 - 03/16) #HTN #HLD #CAD c/b OR s/p CABG #apical HCM Increased interstitial infiltrates concerning for pulmonary edema versus multifocal PNA as below. Clinically not showing signs of overt fluid overload. Got multiple boluses fluid in OSH due to concern for sepsis and hypoTN. No indication for triple therapy AC/antiplatelet at this time. Lipid panel with LDL 37, A1c 5.4. Home HTN regimen: lisinopril 10mg -atorvastatin 80, Zetia, Plavix -Continue Plavix and AC -CTM off antiHTNsives given hypotension #R arm fracture Fracture after ground-level fall 02/06. S/p cast with plan for outpatient follow up. C/o swelling after ortho recast while here but neurovascular intact without numbness/tingling/loss of dexterity. - xray arm with nondisplaced arm fracture - RUE platform weight bearing - ortho c/s for arm fracture and cast take-down -repeat XR 02/27 per Ortho to ensure no interval displacement #Anemia Baseline -. Likely bone marrow suppression in the setting of acute illness. Initially held off on iron studies given not a candidate for IV iron while bacteremic. Folate/B12 WNL. Absolute retic count consistent with hypoproliferation. -fu iron studies -CTM CBC Chronic-- #CKD 3a Per chart review. Baseline Cr ~0.9. Currently at her baseline Cr #IBS Current regimen: [id number] - continue Linaclotide - CTM #prior DVT Remote, unprovoked. Chronically on Eliquis - continue AC with heparin gtt #OA #DDD Current regimen: Voltaren gel, gabapentin 600mg QID - CTM - lidocaine patches and APAP as needed, gabapentin 600mg BID - if breakthrough pain, can consider fentanyl patch #osteoporosis Currently on alendronate 70mg qWeekly - CTM, held inpt #GERD Home regimen: omeprazole 20mg - PPI #anxiety/depression - continue Zoloft Checklist: - Procedures: Cardioversion - Diet: Adult Diet Restricted; Low Fat, Low Chol, 2 GM Sodium - Sugars: 128-209 - DVT Prophylaxis: heparin gtt - Lines: PICC Triple Lumen 02/19/23 Non-tunneled Power #1 Doe, #2 Red, #3 White, Left Basilic;Upper arm (Active) Placement Date/Time: 02/19/23 1421 Catheter Time Out Checklist Completed: Yes Hand Hygiene Performed: Yes Site Prep: Chlorhexidine Site Prep Agent has Completely Dried Before Insertion: Yes All 5 Sterile Barriers or Appropriate Barriers Used (Gl... Number of days: 1 Urethral Catheter (Active) Placement Date/Time: 02/21/23 0131 Tube Size (Fr.): 16 Fr Catheter Balloon Size: 10 mL Urine Returned: Yes Number of days: 0 - Drains: none - Rich: 02/21 - Last BM: Stool Occurrence Amount: Medium (02/22/23 1300) - Bowel Reg: none - Stress Ulcer PPx: pantoprazole PO - PT/OT ordered: yes - Code status: Full Code Contact: Storm Lobato-- [phone] Attending MD to make comment on patient risk/complexity. Aleksey Mendez MD Internal Medicine PGY1 -- CCU Yellow Cosigned by Estella Ellis MD PhD at 02/22/2023 2:08 PM CDT Associated attestation - Estella Ellis MD PhD - 02/22/2023 2:08 PM CDT Critical Care Time: I have spent 35 minutes in full attendance with this critically ill patient making frequent reassessments and decisions regarding this patient's complex medical care. Critical care time was exclusive of separately billable procedures, treating other patients and teaching time. Critical care was necessary to treat or prevent imminent or life-threatening deterioration of the following conditions: Afib with RVR MRSA bacteremia Cellulitis Septic emboli of unclear etiology Apical HCM CAD s/p CABG HISTORY No acute events overnight. HR's have been well controlled on amio, dig, metop. R arm is mildly swollen but stable. Breathing at baseline. DIAGNOSTIC REVIEW Blood pressure 112/58, pulse 94, temperature 36.6 ??C (97.9 ??F), resp. rate 19, height 162.6 cm (5' 4 ), weight 89.7 kg (197 lb 12 oz), SpO2 96 %. I have reviewed the pertinent laboratory test results, including: -Dig 1.0 -Cr 0.9 -CT: 1. Cellulitis and suspected phlegmonous changes of the left dorsolateral elbow soft tissues. No focal fluid collection or CT evidence of osteomyelitis. -Bcx: 02/20: MRSE (06/17) -TTE (02/20/23) - Afib during study which is technically difficult: LV size is normal. LVEF 55-60%. Apical hypertrophy present. Normal RV function. No significant valve disease. Estimated PASP 20mmHg+RA pressure. RA pressure is normal. ASSESSMENT AND PLAN: #. Afib / RVR - HR's relatively well controlled on current regimen. Continue amio, BB, digoxin. F/UEP recs. Would defer on DCCV until fully stabilized from her infection, as she is likely to flip back into Afib. Remains on therapeutic A?C #. MRSA L arm cellulitis - remains on vancomycin. Trending levels. Repeat Bcx with MRSE. Plan to obtain additional sets of Bcx today. Appreciate ID recs. Of note, has prostethic knee, so will likely need longer term abx. #. Apical HCM - stable; CTM #. CAD - s/p CABG. Continue plaivx, statin (unclear why she is not on ASA). #. DISPO - Transfer to floor today. Attending Documentation: I have seen and examined this patient on the day of service. I have reviewed and confirmed the history, physical exam, laboratory and radiographic data with the house staff as documented in the ICU resident note. I have reviewed and discussed my treatment plan with the ICU team and other medical/client service consultant staff. * Veronica Stevenson BS - 02/21/2023 9:09 AM CDT Physical Therapy Physical Therapy Progress Note NOTE: This is a summary note of the martinez components of the treatment session. For full details, review chart for all flowsheets documented on by this physical therapy clinician on this date. Vital signs documented in vital signs flowsheet. Care plan progress documented in Care Plan Activity. For questions, please review the treatment team and contact the PT or ASSISTANT TECHNICIAN currently assigned to this patient. If a physical therapy clinician is not assigned to this patient, please call [phone]. 02/21/23 0909 PT Last Visit Session Type Treatment PT Received On 02/21/23 Safe Environment Arm band checked;Patient found in supine;Session completed bedside;Gait belt not utilized, see comment Subjective Agreeable to Therapy Family/Caregiver Present No Precautions Precautions Fall risk Weight Bearing Restrictions Yes RUE Weight Bearing NWB (NWB in R hand, elbow okay for PFW WBing) Activity Tolerance Activity Tolerance Comments ISAAK: Fairly Light Pain Assessment Pain Assessment 0-10 Pain Score 5 - Moderate pain Pain Location Leg Pain Orientation Right Pain Descriptors Sore Pain Interventions Repositioned;Physical Therapy Cognition Arousal/Alertness Alert;Appropriate responses to stimuli Orientation Oriented X4 (person, place, time, situation) Following Commands Follows all commands and directions without difficulty Compliance/Behavior Easy to engage Balance Balance Yes Static Sitting Balance Static Sitting-Balance Support No upper extremity supported;Feet supported Static Sitting-Sitting Surface Bed Static Sitting-Level of Assistance Close supervision Static Sitting-Comment/# of Minutes to ensure safety Static Standing Balance Static Standing-Balance Support Bilateral upper extremity supported Static Standing-Standing Surface Floor Static Standing-Level of Assistance Minimum assistance Static Standing-Comment/# of Minutes to ensure safety and for balance ICU Mobility Scale ICU Mobility Scale 7 FSS-ICU Functional Status Score (ICU scale) Rolling 3 Supine to Sit 3 Sitting 5 Sit to Stand 4 Ambulation or Wheelchair Mobility? Ambulation Ambulation 1 Score (Out of 35) 16 Bed Mobility Bed Mobility Yes Bed Mobility 1 Bed Mobility From 1 Supine Bed Mobility Type 1 To Bed Mobility to 1 Edge of bed Level of Assistance 1 Moderate Assist Bed Mobility Comments 1 Mod A for R LE management, trunk elevation and scooting hips Transfers Transfer Yes Transfer 1 Transfer From 1 Sit Transfer Type 1 To and from Transfer to 1 Stand Technique 1 Sit to stand;Stand to sit Transfer Device 1 Hand held assist Transfer Level of Assistance 1 Minimum Assist (x2) Trials/Comments 1 min Ax2, 3 reps, assist for force production. Marched 10 reps on 2nd trial Transfers 2 Transfer From 2 Bed Transfer Type 2 To Transfer to 2 Chair with arms Technique 2 Stand and step Transfer Device 2 Hand held assist Transfer Level of Assistance 2 Minimum Assist (x2) Trials/Comments 2 assist for force production and balance Ambulation Ambulation Yes Ambulation 1 Distance (ft) 1 10 Surface 1 Level tile Device 1 Hand held assist Assistance 1 Minimum Assist (x2) Gait: Requires assist with 1 Maintaining balance;Weight shifting;Maintaining hip extension Gait: Requires verbal cues to 1 Pace activity Gait Deviations 1 Base of support - decreased;Roma - decreased;Heel strike - decreased;Lateral trunk lean/sway;Step length - decreased Ambulation Comments 1 min Ax2 to walk in room, out and back from chair. Stairs Stairs No Other Comments Other PT Comments VSS throughout. Pt notes some dizziness after sitting up and standing but notes it is improved compared to yesterday's session. Basic Mobility - 6 Click How much difficulty does the patient have: Turning over in bed 2 How much difficulty does the patient currently have: Sitting down and standing up from a chair witharms? 3 How much difficulty does the patient have: Moving from lying on back to sitting on the side of the bed? 2 How much difficulty does the patient have: Moving to and from a bed to a chair including wheelchair? 3 How much help does the patient currently need: Walk in hospital room? 3 How much help from another person does the patient currently need: Climbing 3-5 steps with a railing? 2 Total 6 Click Score (range 6-24) 15 Score Interpretation 36.97 Safe Environment End of Therapy Session Safe Environment End of Therapy Session Patient left in recliner;RN notified;Call light within reach;Overbed table within reach Assessment Prognosis Good Problem List Gait deviations;Decreased strength;Decreased endurance;Impaired balance;Decreased mobility Plan Plan Continue with current plan;If this is the last note, consider this the discharge summary Recommendation/Plan PT Recommendation/Plan Inpatient Rehab Facility Patient at high risk for Falls;Readmission;Injury due to decreased ability to care for self;Injury due to reduced functional status;Injury due to balance deficits;Injury at home as patient has not returned to prior level of function Recommend Inpatient Rehab/Acute Rehab due to Ability to actively participate in intensive therapy 3hours/day, 5 days/week or 900 minutes per week;Highly motivated to participate in therapy;Impaired ability to complete functional mobility;Likely to return to the community at discharge with support system in place;Requires greater than 25% physical assistance with most mobility tasks PT Frequency during current admission 5-7x/wk Treatment/Interventions during current admission Balance Training;Bed mobility;Endurance training;Functional activity;Functional transfer training;Gait training;Neuromuscular re-education;Stair traini ng;Strengthening;Therapeutic activity;Therapeutic exercise PT - Next Appointment 02/22/23 Multi-Disciplinary Problems (from Physical Therapy) Active Problems Problem: Mobility Start Date: 02/20/23 Goal Start Date Expected End Date End Date STG - Patient will ambulate 02/20/23 03/06/23 -- Goal Details: 250 ft, SBA, WW Problem: Transfers Start Date: 02/20/23 Goal Start Date Expected End Date End Date STG - Patient will perform bed mobility 02/20/23 03/06/23 -- Goal Details: IND Goal Start Date Expected End Date End Date STG - Patient will transfer sit to and from stand 02/20/23 03/06/23 -- Goal Details: SBA, WW Problem: PT Misc Start Date: 02/20/23 Goal Start Date Expected End Date End Date PT STG - Misc 1 02/20/23 02/27/23 -- Goal Details: Patient and caregivers will participate in and demonstrate understanding of therapeutic exercise and safe mobility strategies to improve independence with functional mobility. Cosigned by Suki Francisco, PT at 02/21/2023 3:58 PM CDT * Aleksey Mendez MD - 02/21/2023 6:22 AM CDT CCU DAILY PROGRESS Patient: Tiera Lobato Room: [id number] Date: 02/21/2023 CCU Attending: Dr. cEhevarria SUBJECTIVE Overnight Events: - dig level 1.1. Continued maintenance dose Brief plan: -02/20 Bcx+ gram+ cocci in clusters -ACCS consulted due to refractory cellulitis/myositis -Per ACCS, CT LUE for further eval of cellulitis/myositis -deferring cardioversion until operative intervention of LUE ruled out (risk of reentry during procedure) -Per ID, Vanc 4 weeks end (03/16/23); dc/d Cefe -restarted Linzess -increased Vanc dosing to 1500 q24 for trough 13.3 (goal 15-20 per ID) MEDICATIONS Scheduled Meds: Current Facility-Administered Medications Medication Dose Route Frequency Provider Last Rate Last Admin acetaminophen (TYLENOL) tablet 1,000 mg 1,000 mg oral Q6H PRN Olimpia Long MD amiodarone in dextrose (NEXTERONE) 360 mg/200 mL (1.8 mg/mL) infusion (premix) 1 mg/min intravenousContinuous Olimpia Long MD 33.3 mL/hr at 02/18/23 0600 1 mg/min at 02/18/23 0600 atorvastatin (LIPITOR) tablet 80 mg 80 mg oral Nightly Olimpia Long MD calcium carbonate-vitamin D3 1,250mg (500mg elemental) - 5 mcg (200 units) per tablet 1 tablet 1 tablet oral Daily Olimpia Long MD clopidogreL (PLAVIX) tablet 75 mg 75 mg oral Daily Olimpia Long MD ezetimibe (ZETIA) tablet 10 mg 10 mg oral Daily Olimpia Long MD heparin 1,000 unit/mL injection 2,000 Units 2,000 Units intravenous Q6H PRN Olimpia Long MD Or heparin 1,000 unit/mL injection 3,000 Units 3,000 Units intravenous Q6H PRN Olimpia Long MD heparin in 0.9% sodium chloride 25,000 unit/250 mL infusion (premix) 0-33 Units/kg/hr intravenous Titrated Olimpia Long MD 11.62 mL/hr at 02/18/23 0600 14 Units/kg/hr at 02/18/23 0600 lidocaine (LIDODERM) 5 % patch 2 patch 2 patch transdermal Daily Olimpia Long MD [Held by Provider] linaCLOtide (LINZESS) capsule 145 mcg 145 mcg oral Before breakfast Olimpia Long MD ondansetron (ZOFRAN) injection 4 mg 4 mg intravenous Q8H PRN Aleksey Mendez MD pantoprazole DR (PROTONIX) extended release tablet 40 mg 40 mg oral Daily Olimpia Long MD potassium chloride ER (KLOR-CON) extended release tablet 20 mEq 20 mEq oral Once Aleksey Mendez MD prochlorperazine (COMPAZINE) injection 5 mg 5 mg intravenous Q6H PRN Olimpia Long MD 5 mg at 02/17/23 2143 sertraline (ZOLOFT) tablet 50 mg 50 mg oral Daily Olimpia Long MD PRN Meds: acetaminophen heparin OR heparin ondansetron prochlorperazine sodium chloride 0.9% OBJECTIVE Vitals: Vitals: 02/21/23 1100 BP: 119/69 Pulse: 104 Resp: 22 Temp: SpO2: 95% Input and Output: Intake/Output Summary (Last 24 hours) at 02/21/2023 1317 Last data filed at 02/21/2023 1100 Gross per 24 hour Intake 1183.02 ml Output 1913 ml Net -729.98 ml Physical Exam: Gen: No apparent distress. Resting comfortably. Cooperative. HEENT: No conjunctival pallor or injection, no icterus. No nasal discharge. No LAD. Moist mucus membranes. No exudates. No thyromegaly. Cardiac: irregularly irregular , normal S1/S2. No rubs, murmurs, or gallops. No S3/S4. No LE edema.No carotid bruits. Peripheral pulses 2+ bilaterally. Pulm: Clear to auscultation bilaterally. No wheezing or rhonchi. Abdomen: Soft. Bowel sounds present. No tenderness or distension. No hepatosplenomegaly. Extremity: Warm. No edema. No clubbing or cyanosis. L arm with forearm cellulitis is red but not indurated or fluctuant Neuro: Alert and orientedx3. CN II-XII grossly intact. Strength 5/5 in upper and lower extremities.Sensation intact throughout to light touch Skin: No lesions, erythema, or skin changes. Psych: Mood appropriate. Appropriate insight. LABORATORY DATA CBC Recent Labs Lab Units 02/20/232015 WBC K/cumm 7.8 HEMOGLOBIN g/dL 8.7* HEMATOCRIT % 26.6* PLATELETS K/cumm 282 NEUTROS PCT % 60.6 LYMPHS PCT % 22.3 MONOS PCT % 12.5 EOS PCT % 2.8 Chem Recent Labs Lab Units 02/21/23 0736 02/20/232015 SODIUM mmol/L -- 137 POTASSIUM PLASMA mmol/L -- 4.2 CHLORIDE mmol/L -- 104 CO2 mmol/L -- 25 ANIONGAP mmol/L -- 8 BUN SERUM mg/dL -- 7 CREATININE mg/dL -- 0.88 GLUCOSE mg/dL -- 107 POC GLUCOSE MONITOR mg/dL 115 -- CALCIUM mg/dL -- 9.4 LFTs Recent Labs Lab Units 02/20/23 1655 ALK PHOS Units/L 117 BILIRUBIN TOTAL mg/dL 0.4 BILIRUBIN DIRECT mg/dL <0.2 TOTAL PROTEIN g/dL 6.2* ALT Units/L 15 AST Units/L 23 Coags Recent Labs Lab Units 02/21/23 0614 02/18/23 0225 02/17/23 1743 APTT sec 85* < > 45* INR -- -- 1.78* < > = values in this interval not displayed. Cardiac Enzymes No results found for: TROPONINT Urine Analysis Recent Labs Lab Units 02/17/23 1827 COLOR U Straw CLARITY U Clear SPEC GRAV U 1.016 PH, URINE 6.5 PROTEIN UR QL 1+* GLUCOSE URQL Negative KETONES UR Negative BLOOD UR 2+* NITRITE UR Negative LEUKOCYTE ESTERASE UR Trace* ABG Screening Labs: Iron Studies Cholesterol Recent Labs Lab Units 02/18/23 0426 CHOLESTEROL mg/dL 78 Hgb A1C Recent Labs Lab Units 02/18/23 0426 HEMOGLOBIN A1C % 5.8* Radiology and Other Diagnostics: LUE ultrasound 02/21/23: 1. Cellulitis with underlying myositis 2. Rounded areas of hypoechogenicity, which may represent small fluid without a drainable collection. XR Humerus Right 2 or More Views Result Date: 02/18/2023 1. Limited evaluation with possible casted, nondisplaced distal radius fracture Electronically signed by: Dilshad Mcclendon MD, PHD XR Radius Ulna Right 2 Views Result Date: 02/18/2023 1. Limited evaluation with possible casted, nondisplaced distal radius fracture Electronically signed by: Dilshad Mcclendon MD, PHD ASSESSMENT and PLAN Tiera Lobato is a 77 y.o. female with a PMH of pAF, Apical variant HCM, CAD with OR in 2013 s/p CABG with LAWSON to LAD and SVG to OM, HTN, DDD,diverticulitis, vertigo, prior DVT, OA who presents as an OSH transfer for AFib with RVR complicated by hemodynamic instability. NEURO/PSYCH #anxiety/depression - continue Zoloft CARDIOVASCULAR #pAF with RVR Home regimen: metop 50mg daily. Previously on sotalol 80mg (15d supply last dispensed 02/07/23). TTE02/20 read LVEF 55-60, no valvular dz. - amiodarone gtt - heparin gtt. Holding Eliquis iso possible ablation - s/p dig load. Maintenance dose 125mcg with daily dig level - cont metop 25mg q6h - EP c/s for help with medical management of AFib with RVR -Cardioversion after possibility of LUE operative evaluation is complete/ruled out #apical HCM Increased interstitial infiltrates concerning for pulmonary edema versus multifocal PNA as below. Clinically not showing signs of overt fluid overload. Got multiple boluses fluid in OSH due to concern for sepsis and hypoTN - FBG net even #CAD with OR #hx CABG #HLD No indication for triple therapy AC/antiplatelet at this time. Lipid panel with LDL 37, A1c 5.4 - atorvastatin 80, Zetia, Plavix -Continue Plavix and AC #HTN Home regimen: lisinopril 10mg - CTM off antiHTNsives given hypotension RESPIRATORY #c/f septic emboli - per ID plan - currently on RA GASTROINTESTINAL #GERD Home regimen: omeprazole 20mg - PPI #IBS Current regimen: [id number] - restarted Linaclotide - CTM RENAL/ #CKD 3a Per chart review. Baseline Cr ~0.9. Currently at her baseline Cr ID #MRSA cellulitis #MRSA bacteremia #c/f multifocal PNA #c/f septic emboli (pulmonary) Positive cultures 02/14, but started empirically on vanc 02/12. In house read of OSH CT CAP with septic emboli in lungs, confirmed on repeat this admission. 02/20 Bcx+ within 24 hours for gram positive cocci in clusters. Not septic-appearing at this time. TTE 02/20 read LVEF 55-60, no valvular dz or vegetations. 02/20 LUE ultrasound with cellulitis with underlying myositis and small non-drainable fluid collection. - continue Vanc with regular vanc trough - ID c/s with recs Vanc 4 weeks end (02/12 - 03/16) - ACCS c/s for refractory cellulitis/myositis -> rec LUE CT contrast, likely nonoperative ENDOCRINE No acute issues HEME/ONC #prior DVT Remote, unprovoked. Chronically on Eliquis - continue AC with heparin gtt #anemia Baseline -. Likely bone marrow suppression in the setting of acute illness. Held off on iron studies given not a candidate for IV iron while bacteremic. Folate/B12 WNL. Absolute retic count consistent with hypoproliferation - CTM MSK #OA #DDD Current regimen: Voltaren gel, gabapentin 600mg QID - CTM - lidocaine patches and APAP as needed, gabapentin 600mg BID - if breakthrough pain, can consider fentanyl patch #osteoporosis Currently on alendronate 70mg qWeekly - CTM #R arm fracture Fracture after ground-level fall 02/06. S/p cast with plan for outpatient follow up. - xray arm with nondisplaced arm fracture - RUE platform weight bearing - ortho c/s for arm fracture and cast take-down -repeat XR 02/27 per Ortho to ensure no interval displacement Checklist: - Procedures: Cardioversion - Diet: NPO Diet - Sugars: 128-209 - DVT Prophylaxis: heparin gtt - Lines: PICC Triple Lumen 02/19/23 Non-tunneled Power #1 Doe, #2 Red, #3 White, Left Basilic;Upper arm (Active) Placement Date/Time: 02/19/23 1421 Catheter Time Out Checklist Completed: Yes Hand Hygiene Performed: Yes Site Prep: Chlorhexidine Site Prep Agent has Completely Dried Before Insertion: Yes All 5 Sterile Barriers or Appropriate Barriers Used (Gl... Number of days: 1 Urethral Catheter (Active) Placement Date/Time: 02/21/23 0131 Tube Size (Fr.): 16 Fr Catheter Balloon Size: 10 mL Urine Returned: Yes Number of days: 0 - Drains: none - Rich: 02/21 - Last BM: 02/17 - Bowel Reg: none - Stress Ulcer PPx: pantoprazole PO - PT/OT ordered: yes - Code status: Full Code Contact: Storm Lobato-- [phone] Attending MD to make comment on patient risk/complexity. Aleksey Mendez MD Internal Medicine PGY1 -- CCU Yellow Cosigned by Franca Echevarria DO at 02/21/2023 8:28 PM CDT Associated attestation - Franca Echevarria DO - 02/21/2023 8:28 PM CDT Critical Care Time: I have spent 45 minutes in full attendance with this critically ill patient making frequent reassessments and decisions regarding this patient's complex medical care. Critical care time was exclusive of separately billable procedures, treating other patients and teaching time. Critical care was necessary to treat or prevent imminent or life-threatening deterioration of the following conditions: Atrial fibrillation with RVR Hypotension associated with tachyarrhythmia Coagulopathy, medication induced Acute on chronic anemia Metabolic acidosis MRSA bacteremia Chest CT concerning for septic emboli Left upper extremity cellulitis Heart rates continue to be stable, patient continues in atrial fibrillation. Will continue antiarrhythmic therapy with amiodarone as well as rate control medications with digoxin and metoprolol. [place] cardioversion today due to concern for worsening cellulitis. Patient continues on antibiotic therapy with vancomycin and cefepime. Will continue to monitor vancomycin levels and adjust dose as needed. Infectious Disease continues to follow, appreciate recommendations and guidance. Will consult General surgery for evaluation and consideration of debridement, a ppreciate their input. Patient continues on heparin infusion for anticoagulation, adjust per protocol. Attending Documentation: I have seen and examined this patient on the day of service. I have reviewed and confirmed the history, physical exam, laboratory and radiographic data with the house staff as documented in the ICU resident note. I have reviewed and discussed my treatment plan with the ICU team and other medical/client service consultant staff. Franca Echevarria DO, [facility] Division of Cardiology [facility] * Santino Amor - 02/20/2023 6:16 PM CDT Fr Santino Amor [phone] 02/20/23 1800 Time Spent Start Time 1700 Stop Time 1710 Time Calculation (min) 10 min Patient Spiritual Assessment Spirituality Assessed Yes Quaker Affiliation Mormonism Active in Zoroastrian Yes Spiritual Needs Anointing;Communion;Prayer Clinical Encounter Type Visited With Patient and family together Response Type Routine visit Routine Visit Introduction Reason for visit Sacramental;Support Sacramental Encounters Communion Patient wants communion Communion Given Indicator Yes Sacrament of Sick-Anointing Anointed Outcomes and Progress Aligning care with patient's values Achieved Preserve dignity and respect Achieved Demonstrating care and respect Achieved Interventions Interventions Active listening;Offer spiritual/protestant support;Prayer (Benediction) * Mare Shook - 02/20/2023 2:03 PM CDT Physical Therapy Physical Therapy Initial Assessment NOTE: This is a summary note for the martinez assessments completed during the evaluation session. For full details, review chart review for all flowsheets documented on by this physical therapist on thisdate. Vital signs documented in vital signs flowsheet. Assessment Assessment Prognosis: Good Problem List: Gait deviations, Decreased strength, Decreased endurance, Decreased range of motion, Impaired balance, Decreased mobility, Orthopedic restrictions, Edema Barriers to Discharge: Current Mobility Status Plan Plan Plan : Plan of care initiated, If this is the last note, consider this the discharge summary PT Recommendation and Plan Recommendation/Plan PT Recommendation/Plan: Inpatient Rehab Facility Patient at high risk for: Falls, Readmission, Injury due to decreased ability to care for self, Injury due to reduced functional status, Injury due to balance deficits, Injury at home as patient has not returned to prior level of function Recommend Inpatient Rehab/Acute Rehab due to: Ability to actively participate in intensive therapy 3 hours/day, 5 days/week or 900 minutes per week, Highly motivated to participate in therapy, Not atbaseline due to impaired ability to complete ADLs, Impaired ability to complete functional mobility, Requires greater than 25% physical assistance with most mobility tasks PT Frequency during current admission: 5-7x/wk Treatment/Interventions during current admission: Balance Training, Bed mobility, Compensatory technique education, Equipment eval/education, Endurance training, Functional activity, Functional transfer training, Gait training, Massage, Parent/caregiver training and education, Positioning, Strengthening, Therapeutic activity, Therapeutic exercise, Transfer training PT Equipment Recommended: Wheeled walker, Other (Comment) (With platform for R elbow WBing due to Rradius Fx. Currently, only has rollator which cannot be modified) PT - Next Appointment: 02/21/23 PT - OK to Discharge: No PT Evaluation Complete: Yes General Information General Chart Reviewed: Yes Session Type: Evaluation PT Received On: 02/20/23 Safe Environment: Arm band checked, Patient found in supine, Session completed bedside, Gait belt not utilized, see comment Subjective: Agreeable to Therapy Family/Caregiver Present: No Physical Therapy-Patient Goal: To be able to get up and move Prior Function Prior Function Level of [place]: Independent with ADLs, Independent functional transfers, Needs assistance with ambulation, Needs assistance with homemaking Lives With: Alone Receives Help From: Family (Son) Fall within the last 6 months: Yes Fall within the last 6 months comment: Syncopal episode with R radial fracture Home Living Home Living Type of Home: Assisted Living Facility Home Layout: Multi-level (Lives on third floor) Home Access: Elevator Home Mobility Equipment-Available: Quad cane-large base Home Mobility Equipment-Currently Using: Other (Comment) (Rollator) Precautions Precautions Precautions: Fall risk, Cardiac Pain Pain Assessment Pain Assessment: No/denies pain Cognition Cognition Arousal/Alertness: Alert, Appropriate responses to stimuli Orientation : Oriented X4 (person, place, time, situation) Following Commands: Follows all commands and directions without difficulty Safety Judgment: Good awareness of safety precautions Compliance/Behavior: Easy to engage 6 Clicks Basic Mobility - 6 Click How much difficulty does the patient have: Turning over in bed: A lot How much difficulty does the patient currently have: Sitting down and standing up from a chair witharms?: A lot How much difficulty does the patient have: Moving from lying on back to sitting on the side of the bed?: A lot How much difficulty does the patient have: Moving to and from a bed to a chair including wheelchair?: A lot How much help does the patient currently need: Walk in hospital room?: A lot How much help from another person does the patient currently need: Climbing 3-5 steps with a railing?: Total Total 6 Click Score (range 6-24): 11 Score Interpretation: 11 Bed Mobility Bed Mobility Bed Mobility: Yes Bed Mobility 1 Bed Mobility From 1: Supine Bed Mobility Type 1: To Bed Mobility to 1: Edge of bed Level of Assistance 1: Moderate Assist Bed Mobility Comments 1: Assist required for RLE management, trunk elevation, and hip alignment Transfers Transfers Transfer: Yes Transfer 1 Transfer From 1: Sit Transfer Type 1: To and from Transfer to 1: Stand Technique 1: Sit to stand, Stand to sit Transfer Device 1: Hand held assist Transfer Level of Assistance 1: Moderate Assist (x2) Trials/Comments 1: x2 trials, assist for force production, correcting retropulsion, VC for upright posture. Marching x10 reps on 2nd trial Transfers 2 Transfer From 2: Bed Transfer Type 2: To Transfer to 2: Chair with arms Technique 2: Stand and step Transfer Device 2: Hand held assist Transfer Level of Assistance 2: Moderate Assist (x2) Trials/Comments 2: Assist for force production and weight shifting to step. Balance Static Sitting Balance Static Sitting-Balance Support: Unilateral upper extremity supported, Feet supported Static Sitting-Sitting Surface: Bed Static Sitting-Level of Assistance: Contact guard Static Sitting-Comment/# of Minutes: x3 min, assist for balance and safety, VC for upright posture Static Standing Balance Static Standing-Balance Support: Bilateral upper extremity supported Static Standing-Standing Surface: Floor Static Standing-Level of Assistance: Moderate assistance (x2) Static Standing-Comment/# of Minutes: x30 sec, manual assist and VC to correct retropulsion, assistfor balance and safety Ambulation Ambulation Ambulation: No (Deferred due to weakness and rhythm induced dizziness) Stairs Stairs Stairs: No RLE Assessment RLE Assessment RLE Assessment: Within Functional Limits LLE Assessment LLE Assessment LLE Assessment: Within Functional Limits Safe Environment End of Session Safe Environment End of Therapy Session: Patient left in chair, RN notified, Call light within reach, Overbed table within reach Other Comments Other Comments Other PT Comments: VSS throughout. Pt noted slight dizziness and feeling woozy with upright postures during sitting EOB, standing, and marching; however, BP remained stable. PT Goals Multi-Disciplinary Problems (from Physical Therapy) Active Problems Problem: Mobility Start Date: 02/20/23 Goal Start Date Expected End Date End Date STG - Patient will ambulate 02/20/23 03/06/23 -- Goal Details: 250 ft, SBA, WW Problem: Transfers Start Date: 02/20/23 Goal Start Date Expected End Date End Date STG - Patient will perform bed mobility 02/20/23 03/06/23 -- Goal Details: IND Goal Start Date Expected End Date End Date STG - Patient will transfer sit to and from stand 02/20/23 03/06/23 -- Goal Details: SBA, WW Problem: PT Misc Start Date: 02/20/23 Goal Start Date Expected End Date End Date PT STG - Misc 1 02/20/23 02/27/23 -- Goal Details: Patient and caregivers will participate in and demonstrate understanding of therapeutic exercise and safe mobility strategies to improve independence with functional mobility. Cosigned by Tisha Moore PT at 02/20/2023 3:58 PM CDT * Raegan Mena MD - 02/20/2023 10:50 AM CDT Brief Ortho Progress Note Patient transitioned to a short arm cast. Free to range the elbow and fingers. Okay for platform weight bearing to right upper extremity. Please obtain XR 3v of right wrist in cast, we will review when completed. Ortho hand to sign off and follow peripherally. If patient remains admitted, will plan for repeat XR in 1 week (~02/27) to ensure no interval displacement. Patient may follow-up with her original surgeon or establish care with us. Please call with any questions or concerns. Raegan Mena MD Department of Orthopaedic Surgery PGY-3 Cosigned by Alisha Osorio MD at 02/20/2023 1:26 PM CDT * Olimpia Long MD - 02/20/2023 6:27 AM CDT CCU DAILY PROGRESS Patient: Tiera Lobato Room: [id number] Date: 02/20/2023 CCU Attending: Dr. Echevarria SUBJECTIVE Overnight Events: - dig level 1.4. Continued maintenance dose - s/p PICC placement, confirmed on CXR Subjective: Tolerated full liquid diet and requesting to keep diet as is. No other symptoms concerning for digoxin toxicity. Eager to feel better and get out of the ICU Brief plan: - continue dig 125mcg. Daily dig level - inc metop to 25mg q6h for additional rate control - ID c/s for ?septic pulmonary emboli (already on vanc with negative cultures). TTE pending - EP cs for additional rate control methods: continues on amio gtt, dig, metop tartrate q6h - ortho c/s for broken arm. Plan for cast take down today MEDICATIONS Scheduled Meds: Current Facility-Administered Medications Medication Dose Route Frequency Provider Last Rate Last Admin acetaminophen (TYLENOL) tablet 1,000 mg 1,000 mg oral Q6H PRN Olimpia Long MD amiodarone in dextrose (NEXTERONE) 360 mg/200 mL (1.8 mg/mL) infusion (premix) 1 mg/min intravenousContinuous Olimpia Long MD 33.3 mL/hr at 02/18/23 0600 1 mg/min at 02/18/23 0600 atorvastatin (LIPITOR) tablet 80 mg 80 mg oral Nightly Olimpia Long MD calcium carbonate-vitamin D3 1,250mg (500mg elemental) - 5 mcg (200 units) per tablet 1 tablet 1 tablet oral Daily Olimpia Long MD clopidogreL (PLAVIX) tablet 75 mg 75 mg oral Daily Olimpia Long MD ezetimibe (ZETIA) tablet 10 mg 10 mg oral Daily Olimpia Long MD heparin 1,000 unit/mL injection 2,000 Units 2,000 Units intravenous Q6H PRN Olimpia Long MD Or heparin 1,000 unit/mL injection 3,000 Units 3,000 Units intravenous Q6H PRN Olimpia Long MD heparin in 0.9% sodium chloride 25,000 unit/250 mL infusion (premix) 0-33 Units/kg/hr intravenous Titrated Olimpia Long MD 11.62 mL/hr at 02/18/23 0600 14 Units/kg/hr at 02/18/23 0600 lidocaine (LIDODERM) 5 % patch 2 patch 2 patch transdermal Daily Olimpia Long MD [Held by Provider] linaCLOtide (LINZESS) capsule 145 mcg 145 mcg oral Before breakfast Olimpia Long MD ondansetron (ZOFRAN) injection 4 mg 4 mg intravenous Q8H PRN Aleksey Mendez MD pantoprazole DR (PROTONIX) extended release tablet 40 mg 40 mg oral Daily Olimpia Long MD potassium chloride ER (KLOR-CON) extended release tablet 20 mEq 20 mEq oral Once Aleksey Mendez MD prochlorperazine (COMPAZINE) injection 5 mg 5 mg intravenous Q6H PRN Olimpia Long MD 5 mg at 02/17/232142 sertraline (ZOLOFT) tablet 50 mg 50 mg oral Daily Olimpia Long MD PRN Meds: acetaminophen heparin OR heparin ondansetron prochlorperazine sodium chloride 0.9% OBJECTIVE Vitals: Vitals: 02/20/23 0600 BP: 135/55 Pulse: 117 Resp: 20 Temp: SpO2: 94% Input and Output: Intake/Output Summary (Last 24 hours) at 02/20/2023626 Last data filed at 02/20/2023 0600 Gross per 24 hour Intake 1569.1 ml Output 2895 ml Net -1325.9 ml Physical Exam: Gen: No apparent distress. Resting comfortably. Cooperative. HEENT: No conjunctival pallor or injection, no icterus. No nasal discharge. No LAD. Moist mucus membranes. No exudates. No thyromegaly. Cardiac: irregularly irregular , normal S1/S2. No rubs, murmurs, or gallops. + JVD to mandibular angle at 30deg. No S3/S4. No LE edema. No carotid bruits. Peripheral pulses 2+ bilaterally. Pulm: Clear to auscultation bilaterally. No wheezing or rhonchi. Abdomen: Soft. Bowel sounds present. No tenderness or distension. No hepatosplenomegaly. Extremity: Warm. No edema. No clubbing or cyanosis. R arm in cast. L arm with forearm cellulitis isred but not indurated or fluctuant Neuro: Alert and orientedx3. CN II-XII grossly intact. Strength 5/5 in upper and lower extremities.Sensation intact throughout to light touch Skin: No lesions, erythema, or skin changes. Psych: Mood appropriate. Appropriate insight. LABORATORY DATA CBC Recent Labs Lab Units 02/20/23 0351 WBC K/cumm 5.4 HEMOGLOBIN g/dL 8.0* HEMATOCRIT % 25.2* PLATELETS K/cumm 291 NEUTROS PCT % 54.5 LYMPHS PCT % 23.9 MONOS PCT % 16.9 EOS PCT % 3.3 Chem Recent Labs Lab Units 02/20/23 0351 SODIUM mmol/L 136 POTASSIUM PLASMA mmol/L 4.3 CHLORIDE mmol/L 103 CO2 mmol/L 25 ANIONGAP mmol/L 8 BUN SERUM mg/dL 7 CREATININE mg/dL 0.88 GLUCOSE mg/dL 209* CALCIUM mg/dL 8.8 LFTs Recent Labs Lab Units 02/17/23 1743 ALK PHOS Units/L 116 BILIRUBIN TOTAL mg/dL 0.3 TOTAL PROTEIN g/dL 5.9* ALT Units/L 16 AST Units/L 17 Coags Recent Labs Lab Units 02/20/23 0139 02/18/23 0225 02/17/23 1743 APTT sec 128* < > 45* INR -- -- 1.78* < > = values in this interval not displayed. Cardiac Enzymes No results found for: TROPONINT Urine Analysis Recent Labs Lab Units 02/17/23 1827 COLOR U Straw CLARITY U Clear SPEC GRAV U 1.016 PH, URINE 6.5 PROTEIN UR QL 1+* GLUCOSE URQL Negative KETONES UR Negative BLOOD UR 2+* NITRITE UR Negative LEUKOCYTE ESTERASE UR Trace* ABG Screening Labs: Iron Studies Cholesterol Recent Labs Lab Units 02/18/23 0426 CHOLESTEROL mg/dL 78 Hgb A1C Recent Labs Lab Units 02/18/23 0426 HEMOGLOBIN A1C % 5.8* Radiology and Other Diagnostics: XR Humerus Right 2 or More Views Result Date: 02/18/2023 1. Limited evaluation with possible casted, nondisplaced distal radius fracture Electronically signed by: Dilshad Mcclendon MD, PHD XR Radius Ulna Right 2 Views Result Date: 02/18/2023 1. Limited evaluation with possible casted, nondisplaced distal radius fracture Electronically signed by: Dilshad Mcclendon MD, PHD XR Outside Reference Result Date: 02/17/2023 These images are for Reference purposes only and have not been reviewed by [facility]. There will be no report generated by a [facility]iologist. XR Outside Reference Result Date: 02/17/2023 These images are for Reference purposes only and have not been reviewed by [facility]. There will be no report generated by a [facility]ologist. ASSESSMENT and PLAN Tiera Lobato is a 77 y.o. female with a PMH of pAF, Apical variant HCM, CAD with OR in 2013 s/p CABG with LAWSON to LAD and SVG to OM, HTN, DDD,diverticulitis, vertigo, prior DVT, OA who presents as an OSH transfer for AFib with RVR complicated by hemodynamic instability. NEURO/PSYCH #anxiety/depression - continue Zoloft CARDIOVASCULAR #pAF with RVR Home regimen: metop 50mg daily. Previously on sotalol 80mg (15d supply last dispensed 02/07/23) - amiodarone gtt - heparin gtt. Holding Eliquis iso possible ablation - s/p dig load. Maintenance dose 125mcg with daily dig level - inc metop 25mg q6h - EP c/s for help with medical management of AFib with RVR - TTE to r/o structural abnormalities - treat potential underlying causes #apical HCM Increased interstitial infiltrates concerning for pulmonary edema versus multifocal PNA as below. Clinically not showing signs of overt fluid overload. Got multiple boluses fluid in OSH due to concern for sepsis and hypoTN - TTE - FBG net even #CAD with OR #hx CABG #HLD - lipid panel with LDL 37, A1c 5.4 - continued risk factor modification - atorvastatin 80, Zetia, Plavix - no indication for triple therapy AC/antiplatelet at this time. Continue Plavix and AC only #HTN Home regimen: lisinopril 10mg - CTM off antiHTNsives given hypotension RESPIRATORY #c/f multifocal PNA #c/f septic emboli - plan as below - currently on RA GASTROINTESTINAL #GERD Home regimen: omeprazole 20mg - PPI #IBS Current regimen: [id number] - hold linaclotide for diarrhea - CTM. Can schedule laxatives if needed RENAL/ #CKD 3a Per chart review. Baseline Cr ~0.9. Currently at her baseline Cr - avoid nephrotoxic medications - regular vanc levels. Redose accordingly ID #MRSA cellulitis #MRSA bacteremia #c/f multifocal PNA #c/f septic emboli (pulmonary) Positive cultures 02/14, but started empirically on vanc 02/12. In house read of OSH CT CAP with septic emboli in lungs, confirmed on repeat this admission. Not septic-appearing at this time - vanc with regular vanc trough - TTE - ID c/s given MRSA bacteremia at OSH with negative in-house cultures. Unknown source for emboli. Assistance with workup? - PET/CT? Tagged platelet scan? ENDOCRINE No acute issues HEME/ONC #prior DVT Remote, unprovoked. Chronically on Eliquis - continue AC with heparin gtt #anemia Baseline 9-. Likely bone marrow suppression in the setting of acute illness - hold off on iron studies given not a candidate for IV iron while bacteremic - folate/B12 WNL - absolute retic count consistent with hypoproliferation - CTM MSK #OA #DDD Current regimen: Voltaren gel, gabapentin 600mg QID - CTM - lidocaine patches and APAP as needed, gabapentin 600mg BID - if breakthrough pain, can consider fentanyl patch #osteoporosis Currently on alendronate 70mg qWeekly - CTM #R arm fracture Fracture after ground-level fall 02/06. S/p cast with plan for outpatient follow up - xray arm with nondisplaced arm fracture - R arm nonweight-bearing - ortho c/s for arm fracture and cast take-down F: low fat/low chol; 2g Na diet; full liquid A: APAP, lido patch, gabapentin S: none T: heparin gtt H: 30 deg Ul: PPI G: none LDA: PIV, PICC, Rich Code Status: Full Code Dispo: TTF Attending MD to make comment on patient risk/complexity. Olimpia Long MD Cosigned by Franca Echevarria DO at 02/21/2023 8:26 PM CDT Associated attestation - Franca Echevarria DO - 02/21/2023 8:26 PM CDT Critical Care Time: I have spent 50 minutes in full attendance with this critically ill patient making frequent reassessments and decisions regarding this patient's complex medical care. Critical care time was exclusive of separately billable procedures, treating other patients and teaching time. Critical care was necessary to treat or prevent imminent or life-threatening deterioration of the following conditions: Atrial fibrillation with RVR Hypotension associated with tachyarrhythmia Coagulopathy, medication induced Acute on chronic anemia Metabolic acidosis MRSA bacteremia Chest CT concerning for septic emboli Left upper extremity cellulitis Patient continues in atrial fibrillation with improved heart rates. Will continue antiarrhythmic therapy with amiodarone as well as rate-controlling medications with digoxin and metoprolol. Will increase metoprolol today and continue to monitor digoxin levels periodically. Will continue heparin infusion for anticoagulation, adjust per protocol. Will consider cardioversion tomorrow. Will obtain transthoracic echocardiogram. Given concern for septic emboli, will consult Infectious Disease; appreciate their input and guidance. Will continue antibiotic therapy with vancomycin. Cellulitis was noted to expand despite antibiotic therapy. Will add additional coverage with cefepime and obtain ultrasound of the area for evaluation and consideration of debridement. Attending Documentation: I have seen and examined this patient on the day of service. I have reviewed and confirmed the history, physical exam, laboratory and radiographic data with the house staff as documented in the ICU resident note. I have reviewed and discussed my treatment plan with the ICU team and other medical/client service consultant staff. Franca Echevarria DO, [facility] [employer] Division of Cardiology [facility] * Tisha Moore, PT - 02/19/2023 2:23 PM CDT Physical Therapy 02/19/23 1310 General PT Missed Visit Reason MD/RN Hold (RN hold due to PICC placement,) Recommendation/Plan PT - Next Appointment 02/20/23 * Olimpia Long MD - 02/19/2023 6:35 AM CDT CCU DAILY PROGRESS Patient: Tiera Lobato Room: [id number] Date: 02/19/2023 CCU Attending: Dr. Echevarria SUBJECTIVE Overnight Events: - digoxin 250mcg load x4. Dig level 2.9. Repeat dig level 0500 2.0. Dosed maintenance dose digoxin 125mcg 1000 - continues to be in AFib with RVR - CTCAP in house calling septic pulmonary emboli Subjective: Improved nausea and vomiting. Interested in eating/liquids. No other symptoms concerning for digoxin toxicity Brief plan: - continue dig 125mcg. Daily dig level - add metop 12.5 q6h for additional rate control - Lasix 20mg IV. FBG -1L - consider ID c/s for ?septic pulmonary emboli (already on vanc with negative cultures) - EP cs for additional rate control methods - ortho c/s for broken arm - PICC insertion MEDICATIONS Scheduled Meds: Current Facility-Administered Medications Medication Dose Route Frequency Provider Last Rate Last Admin acetaminophen (TYLENOL) tablet 1,000 mg 1,000 mg oral Q6H PRN Olimpia Long MD amiodarone in dextrose (NEXTERONE) 360 mg/200 mL (1.8 mg/mL) infusion (premix) 1 mg/min intravenousContinuous Olimpia Long MD 33.3 mL/hr at 02/18/23 0600 1 mg/min at 02/18/23 0600 atorvastatin (LIPITOR) tablet 80 mg 80 mg oral Nightly Olimpia Long MD calcium carbonate-vitamin D3 1,250mg (500mg elemental) - 5 mcg (200 units) per tablet 1 tablet 1 tablet oral Daily Olimpia Long MD clopidogreL (PLAVIX) tablet 75 mg 75 mg oral Daily Olimpia Long MD ezetimibe (ZETIA) tablet 10 mg 10 mg oral Daily Olimpia Long MD heparin 1,000 unit/mL injection 2,000 Units 2,000 Units intravenous Q6H PRN Olimpia Long MD Or heparin 1,000 unit/mL injection 3,000 Units 3,000 Units intravenous Q6H PRN Olimpia Long MD heparin in 0.9% sodium chloride 25,000 unit/250 mL infusion (premix) 0-33 Units/kg/hr intravenous Titrated Olimpia Long MD 11.62 mL/hr at 02/18/23 0600 14 Units/kg/hr at 02/18/23 0600 lidocaine (LIDODERM) 5 % patch 2 patch 2 patch transdermal Daily Olimpia Long MD [Held by Provider] linaCLOtide (LINZESS) capsule 145 mcg 145 mcg oral Before breakfast Olimpia Long MD ondansetron (ZOFRAN) injection 4 mg 4 mg intravenous Q8H PRN Aleksey Mendez MD pantoprazole DR (PROTONIX) extended release tablet 40 mg 40 mg oral Daily Olimpia Long MD potassium chloride ER (KLOR-CON) extended release tablet 20 mEq 20 mEq oral Once Aleksey Mendez MD prochlorperazine (COMPAZINE) injection 5 mg 5 mg intravenous Q6H PRN Olimpia Long MD 5 mg at 02/17/232142 sertraline (ZOLOFT) tablet 50 mg 50 mg oral Daily Olimpia Long MD PRN Meds: acetaminophen heparin OR heparin ondansetron prochlorperazine sodium chloride 0.9% OBJECTIVE Vitals: Vitals: 02/19/23 0600 BP: 133/67 Pulse: 119 Resp: 17 Temp: SpO2: 94% Input and Output: Intake/Output Summary (Last 24 hours) at 02/19/2023 0635 Last data filed at 02/19/2023 0610 Gross per 24 hour Intake 1538.08 ml Output 1175 ml Net 363.08 ml Physical Exam: Gen: No apparent distress. Resting comfortably. Cooperative. HEENT: No conjunctival pallor or injection, no icterus. No nasal discharge. No LAD. Moist mucus membranes. No exudates. No thyromegaly. Cardiac: irregularly irregular , normal S1/S2. No rubs, murmurs, or gallops. + JVD to mandibular angle at 30deg. No S3/S4. No LE edema. No carotid bruits. Peripheral pulses 2+ bilaterally. Pulm: Clear to auscultation bilaterally. No wheezing or rhonchi. Abdomen: Soft. Bowel sounds present. No tenderness or distension. No hepatosplenomegaly. Extremity: Warm. No edema. No clubbing or cyanosis. R arm in cast. L arm with forearm cellulitis isred but not indurated or fluctuant Neuro: Alert and orientedx3. CN II-XII grossly intact. Strength 5/5 in upper and lower extremities.Sensation intact throughout to light touch Skin: No lesions, erythema, or skin changes. Psych: Mood appropriate. Appropriate insight. LABORATORY DATA CBC Recent Labs Lab Units 02/19/23 0502 WBC K/cumm 4.7 HEMOGLOBIN g/dL 8.6* HEMATOCRIT % 25.6* PLATELETS K/cumm 274 NEUTROS PCT % 53.2 LYMPHS PCT % 24.4 MONOS PCT % 16.1 EOS PCT % 5.1 Chem Recent Labs Lab Units 02/19/23 0502 SODIUM mmol/L 141 POTASSIUM PLASMA mmol/L 4.0 CHLORIDE mmol/L 110 CO2 mmol/L 22 ANIONGAP mmol/L 9 BUN SERUM mg/dL 8 CREATININE mg/dL 0.82 GLUCOSE mg/dL 104 CALCIUM mg/dL 8.8 LFTs Recent Labs Lab Units 02/17/23 1743 ALK PHOS Units/L 116 BILIRUBIN TOTAL mg/dL 0.3 TOTAL PROTEIN g/dL 5.9* ALT Units/L 16 AST Units/L 17 Coags Recent Labs Lab Units 02/19/23 0502 02/18/23 0225 02/17/23 1743 APTT sec 45* < > 45* INR -- -- 1.78* < > = values in this interval not displayed. Cardiac Enzymes No results found for: TROPONINT Urine Analysis Recent Labs Lab Units 02/17/23 1827 COLOR U Straw CLARITY U Clear SPEC GRAV U 1.016 PH, URINE 6.5 PROTEIN UR QL 1+* GLUCOSE URQL Negative KETONES UR Negative BLOOD UR 2+* NITRITE UR Negative LEUKOCYTE ESTERASE UR Trace* ABG Screening Labs: Iron Studies Cholesterol Recent Labs Lab Units 02/18/23 0426 CHOLESTEROL mg/dL 78 Hgb A1C Recent Labs Lab Units 02/18/23 0426 HEMOGLOBIN A1C % 5.8* Radiology and Other Diagnostics: XR Humerus Right 2 or More Views Result Date: 02/18/2023 1. Limited evaluation with possible casted, nondisplaced distal radius fracture Electronically signed by: Dilshad Mcclendon MD, PHD XR Radius Ulna Right 2 Views Result Date: 02/18/2023 1. Limited evaluation with possible casted, nondisplaced distal radius fracture Electronically signed by: Dilshad Mcclendon MD, PHD XR Outside Reference Result Date: 02/17/2023 These images are for Reference purposes only and have not been reviewed by [facility]. There will be no report generated by a [facility]iologist. XR Outside Reference Result Date: 02/17/2023 These images are for Reference purposes only and have not been reviewed by [facility]. There will be no report generated by a [facility]iologist. ASSESSMENT and PLAN Tiera Lobato is a 77 y.o. female with a PMH of pAF, Apical variant HCM, CAD with OR in 2013 s/p CABG with LAWSON to LAD and SVG to OM, HTN, DDD,diverticulitis, vertigo, prior DVT, OA who presents as an OSH transfer for AFib with RVR complicated by hemodynamic instability. NEURO/PSYCH #anxiety/depression - continue Zoloft CARDIOVASCULAR #pAF with RVR Home regimen: metop 50mg daily. Previously on sotalol 80mg (15d supply last dispensed 02/07/23) - amiodarone gtt - heparin gtt. Holding Eliquis iso possible ablation - s/p dig load. Maintenance dose 125mcg with daily dig level - start metop 12.5 q6h - EP c/s for help with medical management of AFib with RVR - TTE to r/o structural abnormalities - treat potential underlying causes #apical HCM Increased interstitial infiltrates concerning for pulmonary edema versus multifocal PNA as below. Clinically not showing signs of overt fluid overload. Got multiple boluses fluid in OSH due to concern for sepsis and hypoTN - TTE - IV Lasix 20mg with FBG -1L #CAD with OR #hx CABG #HLD - lipid panel with LDL 37, A1c 5.4 - continued risk factor modification - atorvastatin 80, Zetia, Plavix - no indication for triple therapy AC/antiplatelet at this time. Continue Plavix and AC only #HTN Home regimen: lisinopril 10mg - CTM off antiHTN given hypotension RESPIRATORY #c/f multifocal PNA #c/f septic emboli - plan as below - currently on RA GASTROINTESTINAL #GERD Home regimen: omeprazole 20mg - PPI #IBS Current regimen: [id number] - hold linaclotide for diarrhea RENAL/ #CKD 3a Per chart review. Baseline Cr ~0.9. Currently at her baseline Cr - avoid nephrotoxic medications - regular vanc levels. Redose accordingly ID #MRSA cellulitis #MRSA bacteremia #c/f multifocal PNA #c/f septic emboli (pulmonary) #sepsis Positive cultures 02/14, but started empirically on vanc 02/12. In house read of OSH CT CAP with septic emboli in lungs, confirmed on repeat this admission - vanc with regular vanc trough - TTE - consider ID c/s - PET/CT? Tagged platelet scan? ENDOCRINE No acute issues HEME/ONC #prior DVT Remote, unprovoked. Chronically on Eliquis - continue AC with heparin gtt #anemia Baseline 9-10 - hold off on iron studies given not a candidate for IV iron while bacteremic - folate/B12 WNL - absolute retic count consistent with hypoproliferation - CTM MSK #OA #DDD Current regimen: Voltaren gel, gabapentin 600mg QID - CTM - lidocaine patches and APAP as needed. Will add gabapentin 600mg BID - if breakthrough pain, can consider fentanyl patch #osteoporosis Currently on alendronate 70mg qWeekly - CTM #R arm fracture Fracture after ground-level fall 02/06. S/p cast with plan for outpatient follow up - xray arm with nondisplaced arm fracture - R arm nonweight-bearing - ortho c/s for arm fracture and cast take-down F: low fat/low chol; 2g Na diet; full liquid A: APAP, lido patch, gabapentin S: none T: heparin gtt H: 30 deg Ul: PPI G: none LDA: PIV x 2, PICC, Rich Code Status: Full Code Dispo: CCU Attending MD to make comment on patient risk/complexity. Olimpia Long MD Cosigned by Franca Echevarria DO at 02/19/2023 10:14 PM CDT Associated attestation - Franca Echevarria DO - 02/19/2023 10:14 PM CDT Critical Care Time: I have spent 40 minutes in full attendance with this critically ill patient making frequent reassessments and decisions regarding this patient's complex medical care. Critical care time was exclusive of separately billable procedures, treating other patients and teaching time. Critical care was necessary to treat or prevent imminent or life-threatening deterioration of the following conditions: Atrial fibrillation with RVR Hypotension associated with tachyarrhythmia Coagulopathy, medication induced Acute on chronic anemia Metabolic acidosis MRSA bacteremia Chest CT concerning for septic emboli Patient continues in atrial fibrillation with RVR, heart rates have improved. Will continue amiodarone infusion as well as daily digoxin. Will monitor digoxin levels daily. Will attempt additional rate control with scheduled metoprolol. Electrophysiology has been consulted, appreciate their input and guidance. Will obtain transthoracic echocardiogram today. Patient appears mildly hypervolemic; will give gentle diuresis today with fluid balance goal of netnegative 1 L. Monitor electrolytes periodically and replete as needed. Will continue heparin infusion for anticoagulation, adjust per protocol. Patient continues on antibiotic therapy with vancomycin. Vancomycin level is appropriate. Chest CT demonstrating evidence concerning for pulmonary septic emboli; will obtain transthoracic echocardiogram as above due to concern for endocarditis. Will consider further imaging in addition to infectious disease consult pending echo result. Attending Documentation: I have seen and examined this patient on the day of service. I have reviewed and confirmed the history, physical exam, laboratory and radiographic data with the house staff as documented in the ICU resident note. I have reviewed and discussed my treatment plan with the ICU team and other medical/client service consultant staff. Franca Echevarria DO, [facility] [employer] Division of Cardiology [facility] * Tisha Moore, PT - 02/18/2023 7:19 AM CDT Physical Therapy 02/18/23 0719 General PT Missed Visit Reason Bedrest;Other (comment) (SBR orders, recent admit pending EP consult.) Recommendation/Plan PT Frequency during current admission Monitor status PT - Next Appointment 02/19/23 * Olimpia Long MD - 02/18/2023 6:16 AM CDT CCU DAILY PROGRESS Patient: Tiera Lobato Room: [id number] Date: 02/18/2023 CCU Attending: Dr. Echevarria SUBJECTIVE Overnight Events: - digoxin 250mcg load x4 - continues to be in AFib with RVR - CTCAP from OSH read and likely calling septic emboli Subjective: Still experiencing nausea and vomiting despite anti-emetics. Likely in the setting of infection. Brief plan: - continue dig load. Level today and maintenance dose (125mcg daily based on renal function and body weight) - EP cs - remove CVC - PSG MEDICATIONS Scheduled Meds: Current Facility-Administered Medications Medication Dose Route Frequency Provider Last Rate Last Admin acetaminophen (TYLENOL) tablet 1,000 mg 1,000 mg oral Q6H PRN Olimpia Long MD amiodarone in dextrose (NEXTERONE) 360 mg/200 mL (1.8 mg/mL) infusion (premix) 1 mg/min intravenousContinuous Olimpia Long MD 33.3 mL/hr at 02/18/23 0600 1 mg/min at 02/18/23 0600 atorvastatin (LIPITOR) tablet 80 mg 80 mg oral Nightly Olimpia Long MD calcium carbonate-vitamin D3 1,250mg (500mg elemental) - 5 mcg (200 units) per tablet 1 tablet 1 tablet oral Daily Olimpia Long MD clopidogreL (PLAVIX) tablet 75 mg 75 mg oral Daily Olimpia Long MD ezetimibe (ZETIA) tablet 10 mg 10 mg oral Daily Olimpia Long MD heparin 1,000 unit/mL injection 2,000 Units 2,000 Units intravenous Q6H PRN Olimpia Long MD Or heparin 1,000 unit/mL injection 3,000 Units 3,000 Units intravenous Q6H PRN Olimpia Long MD heparin in 0.9% sodium chloride 25,000 unit/250 mL infusion (premix) 0-33 Units/kg/hr intravenous Titrated Olimpia Long MD 11.62 mL/hr at 02/18/23 0600 14 Units/kg/hr at 02/18/23 0600 lidocaine (LIDODERM) 5 % patch 2 patch 2 patch transdermal Daily Olimpia Long MD [Held by Provider] linaCLOtide (LINZESS) capsule 145 mcg 145 mcg oral Before breakfast Olimpia Long MD ondansetron (ZOFRAN) injection 4 mg 4 mg intravenous Q8H PRN Aleksey Mendez MD pantoprazole DR (PROTONIX) extended release tablet 40 mg 40 mg oral Daily Olimpia Long MD potassium chloride ER (KLOR-CON) extended release tablet 20 mEq 20 mEq oral Once Aleksey Mendez MD prochlorperazine (COMPAZINE) injection 5 mg 5 mg intravenous Q6H PRN Olimpia Long MD 5 mg at 02/17/23 8134 sertraline (ZOLOFT) tablet 50 mg 50 mg oral Daily Olimpia Long MD PRN Meds: acetaminophen heparin OR heparin ondansetron prochlorperazine OBJECTIVE Vitals: Vitals: 02/18/23 0600 BP: 131/81 Pulse: (!) 128 Resp: 19 Temp: SpO2: 97% Input and Output: Intake/Output Summary (Last 24 hours) at 02/18/2023 0616 Last data filed at 02/18/2023 0600 Gross per 24 hour Intake 801.5 ml Output 870 ml Net -68.5 ml Physical Exam: Gen: No apparent distress. Resting comfortably. Cooperative. HEENT: No conjunctival pallor or injection, no icterus. No nasal discharge. No LAD. Moist mucus membranes. No exudates. No thyromegaly. Cardiac: irregularly irregular , normal S1/S2. No rubs, murmurs, or gallops. + JVD to mandibular angle at 30deg. No S3/S4. No LE edema. No carotid bruits. Peripheral pulses 2+ bilaterally. Pulm: Clear to auscultation bilaterally. No wheezing or rhonchi. Abdomen: Soft. Bowel sounds present. No tenderness or distension. No hepatosplenomegaly. Extremity: Warm. No edema. No clubbing or cyanosis. Neuro: Alert and orientedx3. CN II-XII grossly intact. Strength 5/5 in upper and lower extremities.Sensation intact throughout to light touch Skin: No lesions, erythema, or skin changes. Psych: Mood appropriate. Appropriate insight. LABORATORY DATA CBC Recent Labs Lab Units 02/18/23 0426 WBC K/cumm 5.8 HEMOGLOBIN g/dL 8.3* HEMATOCRIT % 24.7* PLATELETS K/cumm 235 NEUTROS PCT % 69.4 LYMPHS PCT % 15.7 MONOS PCT % 12.4 EOS PCT % 1.7 Chem Recent Labs Lab Units 02/18/23 0426 SODIUM mmol/L 139 POTASSIUM PLASMA mmol/L 3.8 CHLORIDE mmol/L 108 CO2 mmol/L 23 ANIONGAP mmol/L 8 BUN SERUM mg/dL 9 CREATININE mg/dL 0.83 GLUCOSE mg/dL 111 CALCIUM mg/dL 8.0* LFTs Recent Labs Lab Units 02/17/23 1743 ALK PHOS Units/L 116 BILIRUBIN TOTAL mg/dL 0.3 TOTAL PROTEIN g/dL 5.9* ALT Units/L 16 AST Units/L 17 Coags Recent Labs Lab Units 02/18/23 0225 02/17/23 1743 APTT sec 64* 45* INR -- 1.78* Cardiac Enzymes No results found for: TROPONINT Urine Analysis Recent Labs Lab Units 02/17/23 1827 COLOR U Straw CLARITY U Clear SPEC GRAV U 1.016 PH, URINE 6.5 PROTEIN UR QL 1+* GLUCOSE URQL Negative KETONES UR Negative BLOOD UR 2+* NITRITE UR Negative LEUKOCYTE ESTERASE UR Trace* ABG Screening Labs: Iron Studies Cholesterol Recent Labs Lab Units 02/18/23 0426 CHOLESTEROL mg/dL 78 Hgb A1C Radiology and Other Diagnostics: XR Humerus Right 2 or More Views Result Date: 02/18/2023 1. Limited evaluation with possible casted, nondisplaced distal radius fracture Electronically signed by: Dilshad Mcclendon MD, PHD XR Radius Ulna Right 2 Views Result Date: 02/18/2023 1. Limited evaluation with possible casted, nondisplaced distal radius fracture Electronically signed by: Dilshad Mcclendon MD, PHD XR Outside Reference Result Date: 02/17/2023 These images are for Reference purposes only and have not been reviewed by [facility]. There will be no report generated by a [facility]ologist. XR Outside Reference Result Date: 02/17/2023 These images are for Reference purposes only and have not been reviewed by [facility]. There will be no report generated by a [facility]ologist. ASSESSMENT and PLAN Tiera Lobato is a 77 y.o. female with a PMH of pAF, Apical variant HCM, CAD with OR in 2013 s/p CABG with LAWSON to LAD and SVG to OM, HTN, DDD,diverticulitis, vertigo, prior DVT, OA who presents as an OSH transfer for AFib with RVR complicated by hemodynamic instability. NEURO/PSYCH #anxiety/depression - continue Zoloft CARDIOVASCULAR #pAF with RVR Home regimen: metop 50mg daily. Previously on sotalol 80mg (15d supply last dispensed 02/07/23) - amiodarone gtt - heparin gtt. Holding Eliquis iso possible ablation - s/p dig load. Dig level in PM. Maintenance dose 125mcg starting 02/19 - EP c/s for ablation versus help with medical management of AFib with RVR - TTE to r/o structural abnormalities - treat potential underlying causes #apical HCM Increased interstitial infiltrates concerning for pulmonary edema versus multifocal PNA as below. Clinically not showing signs of overt fluid overload. Got multiple boluses fluid in OSH due to concern for sepsis and hypoTN - TTE - monitor for clinical signs of fluid overload #CAD with OR #hx CABG #HLD - lipid panel with LDL 37, A1c 5.4 - continued risk factor modification - atorvastatin 80, Zetia, Plavix - no indication for triple therapy AC/antiplatelet at this time. Continue Plavix and AC only #HTN Home regimen: lisinopril 10mg - CTM off antiHTN given hypotension RESPIRATORY #c/f multifocal PNA #c/f septic emboli - plan as below - currently on RA GASTROINTESTINAL #GERD Home regimen: omeprazole 20mg - PPI #IBS Current regimen: [id number] - hold linaclotide for diarrhea RENAL/ #CKD 3a Per chart review. Baseline Cr ~0.9. Currently at her baseline Cr - avoid nephrotoxic medications - regular vanc levels. Redose accordingly ID #MRSA cellulitis #MRSA bacteremia #c/f multifocal PNA #c/f septic emboli (pulmonary) #sepsis Positive cultures 02/14, but started empirically on vanc 02/12. In house read of OSH CT CAP with septic emboli in lungs - vanc with regular vanc trough - TTE - CT CAP ENDOCRINE No acute issues HEME/ONC #prior DVT Remote, unprovoked. Chronically on Eliquis - continue AC with heparin gtt #anemia Baseline - - hold off on iron studies given not a candidate for IV iron while bacteremic - folate/B12 WNL - absolute retic count consistent with hypoproliferation MSK #OA #DDD Current regimen: Voltaren gel, gabapentin 600mg QID - CTM - lidocaine patches and APAP as needed. Will add gabapentin 600mg BID - if breakthrough pain, can consider fentanyl patch #osteoporosis Currently on alendronate 70mg qWeekly - CTM #R arm fracture Fracture after ground-level fall 02/06. S/p cast with plan for outpatient follow up - xray arm with nondisplaced arm fracture - R arm nonweight-bearing - consider ortho curbside versus formal consult regarding F: low fat/low chol; 2g Na diet A: APAP, lido patch, gabapentin S: none T: heparin gtt H: 30 deg Ul: PPI G: none LDA: PIV, R fem CVC, Rich Code Status: Full Code Dispo: CCU Attending MD to make comment on patient risk/complexity. Olimpia Long MD Cosigned by Franca Echevarria DO at 02/18/2023 9:37 PM CDT Associated attestation - Franca Echevarria DO - 02/18/2023 9:37 PM CDT Critical Care Time: I have spent 45 minutes in full attendance with this critically ill patient making frequent reassessments and decisions regarding this patient's complex medical care. Critical care time was exclusive of separately billable procedures, treating other patients and teaching time. Critical care was necessary to treat or prevent imminent or life-threatening deterioration of the following conditions: Atrial fibrillation with RVR Hypotension associated with tachyarrhythmia Coagulopathy, medication induced Acute on chronic anemia Metabolic acidosis MRSA bacteremia Patient continues in atrial fibrillation with RVR; heart rates have improved since beginning digoxin load. Will continue antiarrhythmic therapy with amiodarone. Will continue IV digoxin to complete the load. Electrophysiology has been consulted, appreciate recommendations and guidance. Will attemptto obtain inpatient sleep study. Will obtain transthoracic echocardiogram. Will continue anticoagulation with heparin infusion, adjust per protocol. Patient continues on vancomycin; most recent vancomycin level is appropriate. We will continue to follow blood cultures as well as obtain blood culture data from outside hospital. Outside hospital chest CT concerning for septic emboli. Will plan to repeat CT of the chest/abdomen/pelvis for further characterization. Will continue antibiotic therapy as above as well as obtain transthoracic echocardiogram. Attending Documentation: I have seen and examined this patient on the day of service. I have reviewed and confirmed the history, physical exam, laboratory and radiographic data with the house staff as documented in the ICU resident note. I have reviewed and discussed my treatment plan with the ICU team and other medical/client service consultant staff. Franca Echevarria DO, [facility] [employer] [facility] of Cardiology [facility] [employer] documented in this encounter H&P Notes * Shaquille Solano MD - 02/25/2023 12:30 PM CDT I have reviewed the H&P, examined the patient, and endorse the findings as written. Plan of Care : Based on the above findings, I consider Tiera Lobato to be an acceptable riskfor : HOOD/Cardioversion Cosigned by Jamari Dias MD at 02/25/2023 12:54 PM CDT Source Note - Olimpia Long MD - 02/17/2023 5:26 PM CDT CCU History and Physical Patient: Tiera Lobato Room: [id number] Date: 02/17/2023 Primary Care Physician: Cristian Ling MD CCU Attending: Franca Echevarria DO Reason for CCU Admission: AFib with RVR c/b hypotension SUBJECTIVE Patient is a 77 y.o. female with a PMH of pAF, Apical variant HCM, CAD with OR in 2013 s/p CABG with LAWSON to LAD and SVG to OM, HTN, DDD,diverticulitis, vertigo, prior DVT, OA who presents as an OSH transfer for AFib with RVR complicated by hemodynamic isntability. HPI: She presents to the hospital after dizzy spell 02/11, found to be in AFib with RVR. She was sitting outside in the sun, began to feel lightheaded, and called the nurse at her assisted living facility.She states she blacked out and next thing she knows, she was being taken to the hospital. She hadrecently been discharged from [facility] 5 days prior (02/06) after treatment of R radial fracture)--during this admission as well, she was in AFib with RVR, loaded and started on sotalol 40mg BID (dose escalation limited by hypotension). Ind the ED, she was found to have HR in the 130s and febrile. EKG in the ED showed AFib with RVR. Per OSH notes, she was tachycardic to the 130s, reuiringIV diltiazem bolus, transitioned to PO dilt 360mg daily. Trop I was 0.042-->0.039-->0.030 (0-0.034). Due to poor HR control, she was started on metoprolol 25mg q8h with plan to uptitrate for goal HR. Further investigation showed signs of multifocal PNA both on CXR and CT CAP. She was also found to have an infiltrative IV with cellulitis and blood cultures positive for MRSA. Additionally, , she had what appeared to be asymptomatic bacteruria. Her Procalcitonin was minimally elevated but lactated was normal. WBC throughout this time was normal. She was initially treated with doxy, flagyl,vanc, ceftriaxone. Thereafter, she became hypotensive to 90s/50s, bolused at least 2L and requiringneo, which was weaned shortly after. 02/15, she was switched from dilt to amio with bolus and continuous infusion along with metoprolol 50mg , rebolused on 02/16. She underwent DCCV 02/16 with successful conversion (post DCCV EKG showed NSR with HR in the 70s and TWI in anterior and lateral leads, seen in 2019 as well) for a few hours and subsequently went back into AFib with RVR. Later 02/16 she was transferred to the ICU for further monitoring, discontinued doxycycline. She continued to remain in RVRwith rates in the high 130s-150s. Due to poor control of her AFib with RVR refractory to electricaland chemical cardioversion complicated by hemodynamic instability, she was transferred to [facility] for possible ablation. She follows with Dr. Stafford. Last appointment was 01/13/23. At this time, she had gained about 10lbs over 1 week, refractory to Lasix 10-20mg BID. She also noted increased leg swelling, 2-pillow orthopnea, but no PND or abdominal discomfort. She endorses SOB while walking on level ground, but no palpitations or chest discomfort. She has been complicant with Eliquis 5mg BID without any missed doses.Att his time, Cr was found to be elevated, thought to be secondary to cardiorenal syndrome. At thistime, she was recommended to increase Lasix to 40mg BID, metop XL to 50mg daily, Continue Eliquis 5mg BID, plan for CV and repeat echo. She ultimately underwent DCCV successfully to NSR 01/20 without known recurrence until 02/02. PAST MEDICAL HISTORY Past Medical History: Diagnosis Date Acid reflux Heart murmur High cholesterol History of blood clots 1960s in leg as teenager - had phlebitis History of OR (myocardial infarction) 2012 History of vertebral fracture 2017 HTN (hypertension) IBS (irritable bowel syndrome) Vertigo PAST SURGICAL HISTORY Past Surgical History: Procedure Laterality Date COLON SURGERY 1992 Repair burst colon CORONARY ARTERY BYPASS GRAFT 2012 Double by-pass - [facility] FLUORO GUIDED INJECTION HIP RIGHT Right 05/16/2022 FLUORO GUIDED INJECTION HIP RIGHT Right 08/15/2022 FLUORO GUIDED INJECTION HIP RIGHT Right 12/10/[address] James ([place], [place]) TOTAL KNEE ARTHROPLASTY Right 2018 ALLERGIES AND DRUG REACTIONS Allergies Allergen Reactions Codeine Hives and Shortness of breath Latex Itching Tramadol Nausea & Vomiting and Unknown FAMILY HISTORY Family History Problem Relation Age of Onset Prostate cancer Father Stroke Child Hypertension Child SOCIAL HISTORY Social History Tobacco Use Smoking status: Never Passive exposure: Current Smokeless tobacco: Never Substance and Sexual Activity Drug use: Yes Types: Medical marijuana Comment: Tablets - tid Sexual activity: Not on file Alcohol Use: Not At Risk (09/28/2020) AUDIT-C Frequency of Alcohol Consumption: Never Average Number of Drinks: Not on file Frequency of Binge Drinking: Not on file PRIOR TO ADMISSION MEDICATIONS Current Facility-Administered Medications Medication Dose Route Frequency Provider Last Rate Last Admin amiodarone in dextrose (NEXTERONE) 360 mg/200 mL (1.8 mg/mL) infusion (premix) 1 mg/min intravenousContinuous Oilmpia Long MD aspirin enteric coated tablet 81 mg 81 mg oral Daily Olimpia Long MD atorvastatin (LIPITOR) tablet 80 mg 80 mg oral Nightly RagOlimpia mendez MD calcium carbonate-vitamin D3 1,250mg (500mg elemental) - 5 mcg (200 units) per tablet 1 tablet 1 tablet oral Daily Olimpia Long MD clopidogreL (PLAVIX) tablet 75 mg 75 mg oral Daily Olimpia Long MD ezetimibe (ZETIA) tablet 10 mg 10 mg oral Daily Olimpia Long MD heparin 1,000 unit/mL injection 2,000 Units 2,000 Units intravenous Q6H PRN Olimpia Long MD Or heparin 1,000 unit/mL injection 3,000 Units 3,000 Units intravenous Q6H PRN Olimpia Long MD heparin 1,000 unit/mL injection 5,000 Units 60 Units/kg intravenous Once Olimpia Long MD heparin in 0.9% sodium chloride 25,000 unit/250 mL infusion (premix) 0-33 Units/kg/hr intravenous Titrated Olimpia Long MD sertraline (ZOLOFT) tablet 50 mg 50 mg oral Daily Olimpia Long MD SCHEDULED MEDICATIONS Scheduled Medications Medication Dose Route Frequency aspirin enteric coated tablet 81 mg 81 mg oral Daily atorvastatin (LIPITOR) tablet 80 mg 80 mg oral Nightly calcium carbonate-vitamin D3 1,250mg (500mg elemental) - 5 mcg (200 units) per tablet 1 tablet 1 tablet oral Daily clopidogreL (PLAVIX) tablet 75 mg 75 mg oral Daily ezetimibe (ZETIA) tablet 10 mg 10 mg oral Daily heparin 1,000 unit/mL injection 5,000 Units 60 Units/kg intravenous Once sertraline (ZOLOFT) tablet 50 mg 50 mg oral Daily Continuous Medications: Current Facility-Administered Medications Medication Dose Route Frequency Last Admin amiodarone 1 mg/min intravenous Continuous heparin 0-33 Units/kg/hr intravenous Titrated PRN Medications: heparin, 2,000 Units OR heparin, 3,000 Units REVIEW OF SYSTEMS Negative unless otherwise stated in HPI OBJECTIVE Vitals: Arrival Vitals [02/17/23 1713] Temp 37.5 ??C (99.5 ??F) Pulse (!) 150 Resp 19 BP 133/87 SpO2 97 % Temp src Axillary Heart Rate Source Monitor Patient Position BP Location FiO2 (%) 24hr Min/Max: Temp Min: 37.5 ??C (99.5 ??F) Max: 37.5 ??C (99.5 ??F) Pulse Min: 150 Max: 150 BP Min: 133/87 Max: 133/87 Resp Min: 19 Max: 19 SpO2 Min: 97 % Max: 97 % Current Vitals: BP 133/87 Pulse (!) 150 Temp 37.5 ??C (99.5 ??F) (Axillary) Resp 19 SpO2 97% Wt Readings from Last 3 Encounters: 01/20/23 83 kg (182 lb 15.7 oz) 01/13/23 85.7 kg (189 lb) 11/27/22 78.7 kg (173 lb 9.6 oz) Intake/Output: No intake/output data recorded. No intake/output data recorded. LDA: Vent settings for last 24 hours: Hemodynamic parameters for last 24 hours: PHYSICAL EXAM: Gen: No apparent distress. Resting comfortably. Cooperative. HEENT: No conjunctival pallor or injection, no icterus. No nasal discharge. No LAD. Moist mucus membranes. No exudates. No thyromegaly. Cardiac: irregularly irregular , normal S1/S2. No rubs, murmurs, or gallops. + JVD to mandibular angle at 30deg. No S3/S4. No LE edema. No carotid bruits. Peripheral pulses 2+ bilaterally. Pulm: Clear to auscultation bilaterally. No wheezing or rhonchi. Abdomen: Soft. Bowel sounds present. No tenderness or distension. No hepatosplenomegaly. Extremity: Warm. No edema. No clubbing or cyanosis. Neuro: Alert and orientedx3. CN II-XII grossly intact. Strength 5/5 in upper and lower extremities.Sensation intact throughout to light touch Skin: No lesions, erythema, or skin changes. Psych: Mood appropriate. Appropriate insight. REVIEW OF LABORATORY DATA No results found for: TROPONINT I have reviewed the above labs REVIEW OF IMAGES AND STUDIES I have reviewed the following: CXR (02/17/23): pending ECG (02/17/23): AFib with RVR (VR 143) TTE : none on file STRESS : none on file CATH : none on file ASSESSMENT/PLAN Tiera Lobato is a 77 y.o. female with a PMH of pAF, Apical variant HCM, CAD with OR in 2013 s/p CABG with LAWSON to LAD and SVG to OM, HTN, DDD,diverticulitis, vertigo, prior DVT, OA who presents as an OSH transfer for AFib with RVR complicated by hemodynamic isntability. NEURO/PSYCH #anxiety/depression - continue Zoloft CARDIOVASCULAR #pAF with RVR Home regimen: metop 50mg daily. Previously on sotalol 80mg (15d supply last dispensed 02/07/23) - amiodarone gtt - heparin gtt. Holding Eliquis iso possible ablation - dig load--250mcg q4h with max 1000mcg load or until rate control, followed by maintenance dosing - EP c/s for ablation - TTE to r/o structural abnormalities - treat potential underlying causes #apical HCM - TTE - monitor for clinical signs of fluid overload #CAD with OR #hx CABG #HLD - lipid panel, A1c - continued risk factor modification - atorvastatin 80, Zetia - Plavix iso possible ablation #HTN Home regimen: lisinopril 10mg - CTM off antiHTN given hypotension RESPIRATORY #c/f multifocal PNA - plan as below - currently on RA GASTROINTESTINAL #GERD Home regimen: omeprazole 20mg - PPI #IBS Current regimen: [id number] - continue RENAL/ #CLAUDIA on CKD 3a Per chart review. Baseline Cr ~0.9. Currently at her baseline Cr - avoid nephrotoxic medications ID #MRSA cellulitis #MRSA bacteremia #c/f multifocal PNA #sepsis - vanc with regular vanc trough - TTE - repeat CXR ENDOCRINE No acute issues HEME/ONC #prior DVT Remote, unprovoked. Chronically on Eliquis - continue AC with heparin gtt #anemia Baseline 9-10 - hold off on iron studies given not a candidate for IV iron while bacteremic - folate/B12/retic MSK #OA #DDD Current regimen: Voltaren gel, gabapentin 600mg QID - CTM - consider pain management consult versus coordination with pharmacy regarding pain regimen given acute on chronic pain unable to tolerate opiate pain meds #osteoporosis Currently on alendronate 70mg qWeekly - CTM #R arm fracture Fracture after ground-level fall 02/06. S/p cast with plan for outpatient follow up - xray arm - consider ortho curbside versus formal consult regarding F: low fat/low chol; 2g Na diet A: APAP, lido patch S: none T: heparin gtt H: 30 deg Ul: none G: none LDA: PIV, R fem CVC, Rich Code Status: Full Code Dispo: CCU Attending MD to make comment on patient risk/complexity. Olimpia Long MD Cosigned by Franca Echevarria DO at 02/18/2023 9:35 PM CDT * Olimpia Long MD - 02/17/2023 5:26 PM CDT CCU History and Physical Patient: Tiera Filemon [facility], [place] Room: [id number] Date: 02/17/2023 Primary Care Physician: Cristian Ling MD CCU Attending: Franca Echevarria DO Reason for CCU Admission: AFib with RVR c/b hypotension SUBJECTIVE Patient is a 77 y.o. female with a PMH of pAF, Apical variant HCM, CAD with OR in 2012 s/p CABG with LAWSON to LAD and SVG to OM, HTN, DDD,diverticulitis, vertigo, prior DVT, OA who presents as an OSH transfer for AFib with RVR complicated by hemodynamic isntability. HPI: She presents to the hospital after dizzy spell 02/11, found to be in AFib with RVR. She was sitting outside in the sun, began to feel lightheaded, and called the nurse at her assisted living facility.She states she blacked out and next thing she knows, she was being taken to the hospital. She hadrecently been discharged from [facility] 5 days prior (02/06) after treatment of R radial fracture)--during this admission as well, she was in AFib with RVR, loaded and started on sotalol 40mg BID (dose escalation limited by hypotension). Ind the ED, she was found to have HR in the 130s and febrile. EKG in the ED showed AFib with RVR. Per OSH notes, she was tachycardic to the 130s, reuiringIV diltiazem bolus, transitioned to PO dilt 360mg daily. Trop I was 0.042-->0.039-->0.030 (0-0.034). Due to poor HR control, she was started on metoprolol 25mg q8h with plan to uptitrate for goal HR. Further investigation showed signs of multifocal PNA both on CXR and CT CAP. She was also found to have an infiltrative IV with cellulitis and blood cultures positive for MRSA. Additionally, , she had what appeared to be asymptomatic bacteruria. Her Procalcitonin was minimally elevated but lactated was normal. WBC throughout this time was normal. She was initially treated with doxy, flagyl,vanc, ceftriaxone. Thereafter, she became hypotensive to 90s/50s, bolused at least 2L and requiringneo, which was weaned shortly after. 02/15, she was switched from dilt to amio with bolus and continuous infusion along with metoprolol 50mg , rebolused on 02/16. She underwent DCCV 02/16 with successful conversion (post DCCV EKG showed NSR with HR in the 70s and TWI in anterior and lateral leads, seen in 2020 as well) for a few hours and subsequently went back into AFib with RVR. Later 02/16 she was transferred to the ICU for further monitoring, discontinued doxycycline. She continued to remain in RVRwith rates in the high 130s-150s. Due to poor control of her AFib with RVR refractory to electricaland chemical cardioversion complicated by hemodynamic instability, she was transferred to [facility] for possible ablation. She follows with Dr. Stafford. Last appointment was 01/13/23. At this time, she had gained about 10lbs over 1 week, refractory to Lasix 10-20mg BID. She also noted increased leg swelling, 2-pillow orthopnea, but no PND or abdominal discomfort. She endorses SOB while walking on level ground, but no palpitations or chest discomfort. She has been complicant with Eliquis 5mg BID without any missed doses.Att his time, Cr was found to be elevated, thought to be secondary to cardiorenal syndrome. At thistime, she was recommended to increase Lasix to 40mg BID, metop XL to 50mg daily, Continue Eliquis 5mg BID, plan for CV and repeat echo. She ultimately underwent DCCV successfully to NSR 01/20 without known recurrence until 02/02. PAST MEDICAL HISTORY Past Medical History: Diagnosis Date Acid reflux Heart murmur High cholesterol History of blood clots 1960s in leg as teenager - had phlebitis History of OR (myocardial infarction) 2012 History of vertebral fracture 2017 HTN (hypertension) IBS (irritable bowel syndrome) Vertigo PAST SURGICAL HISTORY Past Surgical History: Procedure Laterality Date COLON SURGERY 1992 Repair burst colon CORONARY ARTERY BYPASS GRAFT 2012 Double by-pass - [facility] FLUORO GUIDED INJECTION HIP RIGHT Right 05/16/2022 FLUORO GUIDED INJECTION HIP RIGHT Right 08/15/2022 FLUORO GUIDED INJECTION HIP RIGHT Right 12/10/[address] James ([place], [place]) TOTAL KNEE ARTHROPLASTY Right 2018 ALLERGIES AND DRUG REACTIONS Allergies Allergen Reactions Codeine Hives and Shortness of breath Latex Itching Tramadol Nausea & Vomiting and Unknown FAMILY HISTORY Family History Problem Relation Age of Onset Prostate cancer Father Stroke Child Hypertension Child SOCIAL HISTORY Social History Tobacco Use Smoking status: Never Passive exposure: Current Smokeless tobacco: Never Substance and Sexual Activity Drug use: Yes Types: Medical marijuana Comment: Tablets - tid Sexual activity: Not on file Alcohol Use: Not At Risk (09/28/2020) AUDIT-C Frequency of Alcohol Consumption: Never Average Number of Drinks: Not on file Frequency of Binge Drinking: Not on file PRIOR TO ADMISSION MEDICATIONS Current Facility-Administered Medications Medication Dose Route Frequency Provider Last Rate Last Admin amiodarone in dextrose (NEXTERONE) 360 mg/200 mL (1.8 mg/mL) infusion (premix) 1 mg/min intravenousContinuous Olimpia Long MD aspirin enteric coated tablet 81 mg 81 mg oral Daily Olimpia Long MD atorvastatin (LIPITOR) tablet 80 mg 80 mg oral Nightly Olimpia Long MD calcium carbonate-vitamin D3 1,250mg (500mg elemental) - 5 mcg (200 units) per tablet 1 tablet 1 tablet oral Daily Olimpia Long MD clopidogreL (PLAVIX) tablet 75 mg 75 mg oral Daily Olimpia Long MD ezetimibe (ZETIA) tablet 10 mg 10 mg oral Daily Olimpia Long MD heparin 1,000 unit/mL injection 2,000 Units 2,000 Units intravenous Q6H PRN Olimpia Long MD Or heparin 1,000 unit/mL injection 3,000 Units 3,000 Units intravenous Q6H PRN Olimpia Long MD heparin 1,000 unit/mL injection 5,000 Units 60 Units/kg intravenous Once Olimpia Long MD heparin in 0.9% sodium chloride 25,000 unit/250 mL infusion (premix) 0-33 Units/kg/hr intravenous Titrated Olimpia Long MD sertraline (ZOLOFT) tablet 50 mg 50 mg oral Daily Olimpia Long MD SCHEDULED MEDICATIONS Scheduled Medications Medication Dose Route Frequency aspirin enteric coated tablet 81 mg 81 mg oral Daily atorvastatin (LIPITOR) tablet 80 mg 80 mg oral Nightly calcium carbonate-vitamin D3 1,250mg (500mg elemental) - 5 mcg (200 units) per tablet 1 tablet 1 tablet oral Daily clopidogreL (PLAVIX) tablet 75 mg 75 mg oral Daily ezetimibe (ZETIA) tablet 10 mg 10 mg oral Daily heparin 1,000 unit/mL injection 5,000 Units 60 Units/kg intravenous Once sertraline (ZOLOFT) tablet 50 mg 50 mg oral Daily Continuous Medications: Current Facility-Administered Medications Medication Dose Route Frequency Last Admin amiodarone 1 mg/min intravenous Continuous heparin 0-33 Units/kg/hr intravenous Titrated PRN Medications: heparin, 2,000 Units OR heparin, 3,000 Units REVIEW OF SYSTEMS Negative unless otherwise stated in HPI OBJECTIVE Vitals: Arrival Vitals [02/17/233] Temp 37.5 ??C (99.5 ??F) Pulse (!) 150 Resp 19 BP 133/87 SpO2 97 % Temp src Axillary Heart Rate Source Monitor Patient Position BP Location FiO2 (%) 24hr Min/Max: Temp Min: 37.5 ??C (99.5 ??F) Max: 37.5 ??C (99.5 ??F) Pulse Min: 150 Max: 150 BP Min: 133/87 Max: 133/87 Resp Min: 19 Max: 19 SpO2 Min: 97 % Max: 97 % Current Vitals: BP 133/87 Pulse (!) 150 Temp 37.5 ??C (99.5 ??F) (Axillary) Resp 19 SpO2 97% Wt Readings from Last 3 Encounters: 01/20/23 83 kg (182 lb 15.7 oz) 01/13/23 85.7 kg (189 lb) 11/27/22 78.7 kg (173 lb 9.6 oz) Intake/Output: No intake/output data recorded. No intake/output data recorded. LDA: Vent settings for last 24 hours: Hemodynamic parameters for last 24 hours: PHYSICAL EXAM: Gen: No apparent distress. Resting comfortably. Cooperative. HEENT: No conjunctival pallor or injection, no icterus. No nasal discharge. No LAD. Moist mucus membranes. No exudates. No thyromegaly. Cardiac: irregularly irregular , normal S1/S2. No rubs, murmurs, or gallops. + JVD to mandibular angle at 30deg. No S3/S4. No LE edema. No carotid bruits. Peripheral pulses 2+ bilaterally. Pulm: Clear to auscultation bilaterally. No wheezing or rhonchi. Abdomen: Soft. Bowel sounds present. No tenderness or distension. No hepatosplenomegaly. Extremity: Warm. No edema. No clubbing or cyanosis. Neuro: Alert and orientedx3. CN II-XII grossly intact. Strength 5/5 in upper and lower extremities.Sensation intact throughout to light touch Skin: No lesions, erythema, or skin changes. Psych: Mood appropriate. Appropriate insight. REVIEW OF LABORATORY DATA No results found for: TROPONINT I have reviewed the above labs REVIEW OF IMAGES AND STUDIES I have reviewed the following: CXR (02/17/23): pending ECG (02/17/23): AFib with RVR (VR 143) TTE : none on file STRESS : none on file CATH : none on file ASSESSMENT/PLAN Tiera Lobato is a 77 y.o. female with a PMH of pAF, Apical variant HCM, CAD with OR in 2013 s/p CABG with LAWSON to LAD and SVG to OM, HTN, DDD,diverticulitis, vertigo, prior DVT, OA who presents as an OSH transfer for AFib with RVR complicated by hemodynamic isntability. NEURO/PSYCH #anxiety/depression - continue Zoloft CARDIOVASCULAR #pAF with RVR Home regimen: metop 50mg daily. Previously on sotalol 80mg (15d supply last dispensed 02/07/23) - amiodarone gtt - heparin gtt. Holding Eliquis iso possible ablation - dig load--250mcg q4h with max 1000mcg load or until rate control, followed by maintenance dosing - EP c/s for ablation - TTE to r/o structural abnormalities - treat potential underlying causes #apical HCM - TTE - monitor for clinical signs of fluid overload #CAD with OR #hx CABG #HLD - lipid panel, A1c - continued risk factor modification - atorvastatin 80, Zetia - Plavix iso possible ablation #HTN Home regimen: lisinopril 10mg - CTM off antiHTN given hypotension RESPIRATORY #c/f multifocal PNA - plan as below - currently on RA GASTROINTESTINAL #GERD Home regimen: omeprazole 20mg - PPI #IBS Current regimen: [id number] - continue RENAL/ #CLAUDIA on CKD 3a Per chart review. Baseline Cr ~0.9. Currently at her baseline Cr - avoid nephrotoxic medications ID #MRSA cellulitis #MRSA bacteremia #c/f multifocal PNA #sepsis - vanc with regular vanc trough - TTE - repeat CXR ENDOCRINE No acute issues HEME/ONC #prior DVT Remote, unprovoked. Chronically on Eliquis - continue AC with heparin gtt #anemia Baseline 9-10 - hold off on iron studies given not a candidate for IV iron while bacteremic - folate/B12/retic MSK #OA #DDD Current regimen: Voltaren gel, gabapentin 600mg QID - CTM - consider pain management consult versus coordination with pharmacy regarding pain regimen given acute on chronic pain unable to tolerate opiate pain meds #osteoporosis Currently on alendronate 70mg qWeekly - CTM #R arm fracture Fracture after ground-level fall 02/06. S/p cast with plan for outpatient follow up - xray arm - consider ortho curbside versus formal consult regarding F: low fat/low chol; 2g Na diet A: APAP, lido patch S: none T: heparin gtt H: 30 deg Ul: none G: none LDA: PIV, R fem CVC, Rich Code Status: Full Code Dispo: CCU Attending MD to make comment on patient risk/complexity. Olimpia Long MD Cosigned by Franca Echevarria DO at 02/18/2023 9:35 PM CDT Associated attestation - Franca Echevarria DO - 02/18/2023 9:35 PM CDT Critical Care Time: I have spent 50 minutes in full attendance with this critically ill patient making frequent reassessments and decisions regarding this patient's complex medical care. Critical care time was exclusive of separately billable procedures, treating other patients and teaching time. Critical care was necessary to treat or prevent imminent or life-threatening deterioration of the following conditions: Atrial fibrillation with RVR Hypotension associated with tachyarrhythmia Coagulopathy, medication induced Acute on chronic anemia Metabolic acidosis MRSA bacteremia On admission, patient remains in atrial fibrillation with RVR, heart rates range 140-160 beats per minute. Per outside hospital records, cardioversion with amiodarone on board was briefly successful as patient remained in sinus rhythm for maximum a few hours. We will continue antiarrhythmic therapywith amiodarone infusion. Will initiate digoxin loading for improved rate control; continue telemetry monitoring. We will also consult electrophysiology for further recommendations and guidance regarding antiarrhythmic therapy. We will initiate anticoagulation with heparin infusion, adjust per protocol. Will obtain transthoracic echocardiogram. Outside hospital reported positive blood cultures with MRSA. Patient was started on vancomycin for antibiotic therapy. Will obtain vancomycin level on admission and re-dose vancomycin as needed. Willrepeat blood cultures. Attending Documentation: I have seen and examined this patient on the day of service. I have reviewed and confirmed the history, physical exam, laboratory and radiographic data with the house staff as documented in the ICU resident note. I have reviewed and discussed my treatment plan with the ICU team and other medical/client service consultant staff. Franca Echevarria DO, FACC [facility] of Cardiology [facility] documented in this encounter Procedure Notes * Jenna Vaughn, PHILIP - 02/19/2023 2:34 PM CDT Images from the original note were not included. Vascular Access Nurse: Procedure Note Summary of treatment provided to patient today is as follows : . Bedside Procedure Time out/Checklist (last 4 hours) Pre-Op Checklist Row Name 02/19/23 1419 02/19/23 1400 02/19/23 1300 02/19/23 1200 02/19/23 1100 Patient/Chart Verification Patient ID Verified Verbal;Armband - -- -- -- -- Pre-op Lab/Test Results Available In chart - -- -- -- -- Antibiotic Status Not applicable - -- -- -- -- Arm Bands On -- ID;Allergies;Fall -DN ID;Allergies;Fall -DN ID;Allergies;Fall - DN ID;Allergies;Fall-DN Procedure Verification Correct Patient Yes - -- -- -- -- Correct Procedure Yes - -- -- -- -- Correct Laterality Yes - -- -- -- -- Correct Site Yes - -- -- -- -- Site Marked Yes - -- -- -- -- Patient Preparation Temp -- -- -- 37.3 ??C (99.1 ??F) -DN -- Row Name 02/19/23 1036 Patient/Chart Verification Patient ID Verified Verbal;Armband;Verified with consent -FS Allergies Verified Yes -FS Procedure Area/OR Notified of Latex Allergy Yes -FS Arm Bands On ID;Allergies -FS Consents Confirmed Procedural;Informed -FS H&P Verified and Updated Yes -FS Pre-op Lab/Test Results Available In chart -FS Procedure Verification Correct Patient Yes -FS Correct Procedure Yes -FS Correct Laterality Yes right arm cast -FS Correct Site Yes -FS Site Marked Yes -FS User Martinez (r) = Recorded By, (t) = Taken By, (c) = Cosigned By Initials Name Kel Scruggs RN Jenna Vaughn, Melisa Lew RN Vascular Access Documentation (last 4 hours) [facility] Additional Procedures Row Name 02/19/23 1419 02/19/23 1037 PICC Screening Questionnaire Order written on the chart for PICC insertion or placement? Y - Y -FS Information form/Consent Obtained from POA/ Family N [facility] N -FS Is there an order from Renal giving ok to place PICC line? N/A - N/A -FS Are there any location restrictions? [facility] Y -FS Which location is NOT accessible for line placement? Right - Right Pt. has casted right arm. - Reason location not accessible for line placement -- CAST - Other (comment) Right arm cast. -FS Does the patient have history of DVT or SVC syndrome? N - N -FS Does the patient currently have blood clots in chest / arms? [facility] N - Review of all IV meds/drips completed Yes - Yes - Patient allergies reviewed? [facility] Y -FS Labs Reviewed if applicable INR;Blood Cultures;Platelet count;Creatinine - INR;Blood Cultures;Platelet count;Creatinine - Procedures Line Type PICC [facility] - -- Time in 1400 - 1025 - Time out 1440 [facility] -- Time Calculation (min) 40 min - -- Vascular Access Procedures PICC line assessment;PICC line placement;PICC dressing change;Education PICC/[facility] - PICC line assessment;Consult Pt.'s left arm assessed for PICC line, unable to use right arm, pt.'s right arm casted. Noted left forearm at a/c cellulitis from IV infiltrate. Assessed left upper arm and left basilic vein sufficient for PICC placement. - Consult -- Time spent discussing an issue with staff Pt.'s PTT need to be drawn due to bolus given @ 0600 this am and not been re-checked. PICC on hold until PTT results are known. -FS Peripheral IV 20 G Anterior;Distal;Left Wrist IV Properties Placed by External Staff?: Other hospital -LG Size (Gauge): 20 G - LG Location Orientation: Anterior;Distal;Left -LG Location: Wrist -LG Peripheral IV 02/18/23 20 G Anterior;Left Forearm IV Properties Placement Date: 02/18/23 -DN Placement Time: 1515 -DN Size (Gauge): 20 G -DN LocationOrientation: Anterior;Left -DN Location: Forearm -DN Inserted by: roopa issa rn -DN Insertion attempts: 1 -DN Patient Tolerance: Tolerated well -DN PICC Triple Lumen 02/19/23 Non-tunneled Power #1 Doe, #2 Red, #3 White, Left Basilic;Upper arm Line Properties Placement Date: 02/19/23 - Placement Time: 1421 - Catheter Time Out Checklist Completed: Yes - Hand Hygiene Performed: Yes - Site Prep: Chlorhexidine - Site Prep Agent has Completely Dried Before Insertion: Yes - All 5 Sterile Barriers or Appropriate Barriers Used (Gloves, Gown, Cap, Mask, Large Sterile Drape): Yes - Local Anesthetic: Injectable -, 1 % Lidocaine 1cc CVC Type: Non-tunneled - Power injectable: Power - Lumen # 1: #1 Doe, - JH Lumen # 2: #2 Red, -JH Lumen # 3: #3 White, -JH Size (Fr): 5 -JH Orientation: Left - Location: Basilic;Upper arm - Technique: Modified seldinger;Standard insertion technique with peel away sheath;Internal stiffener stylet removed easily;Ultrasound used to locate and cannulate vein - Lot #: [id number] - Expiration Date: 03/15/23 - Trimmed Length (cm) : 44 cm - Line Tip Location : Central - Initial Extremity Circumference (cm): 37 cm - Circumference Reference Point: 3 - Placement Verification: Blood return;Ultrasound -, NEED STAT PCXR FOR PICC PLACEMENT Line Secured by : Securement device - Inserted by: Filemon Mann Assisted By: Fielmon Mann Insertion attempts: 1 - Patient Tolerance: Tolerated well - Site Assessment Clean and dry - -- Dressing Type CHG Dressing - -- Dressing Status New - -- Dressing Change Due 02/26/23 - -- Observer Present Yes - -- Lumen #1 Status Blood return brisk;Saline locked;Capped - Needleless;Capped - Disinfectant;Flushes easily - -- Lumen #2 Status Blood return brisk;Saline locked;Capped - Needleless;Capped - Disinfectant;Flushes easily - -- Lumen #3 Status Blood return brisk;Saline locked;Capped - Needleless;Capped - Disinfectant;Flushes easily - -- Line Necessity Reason Reviewed With Care Team Receiving high risk meds that could damage tissue if infiltrated (vesicants such as compazine or antibiotics, TPN, high dextrose concentration, chemotherapy, concentrated meds or fluid restricted) - -- User Martinez (r) = Recorded By, (t) = Taken By, (c) = Cosigned By Initials Name Mike Manzo RN DN Needham, David, RN JH Heuer, Julie Anne, RN FS Sitzes, Francine M., RN PlanNEED STAT PCXR FOR PICC TIP PLACEMENT Follow up:RN notified Jenna Vaughn RN * Melisa Braga RN - 02/19/2023 10:44 AM CDT Images from the original note were not included. Vascular Access Nurse: Procedure Note Summary of treatment provided to patient today is as follows : . Bedside Procedure Time out/Checklist (last 4 hours) Pre-Op Checklist Row Name 02/19/23 1036 02/19/23 0900 02/19/23 0800 02/19/23 0700 Patient/Chart Verification Patient ID Verified Verbal;Armband;Verified with consent -FS -- -- -- Allergies Verified Yes -FS -- -- -- Procedure Area/OR Notified of Latex Allergy Yes -FS -- -- -- Arm Bands On ID;Allergies -FS -- -- -- Consents Confirmed Procedural;Informed -FS -- -- -- H&P Verified and Updated Yes -FS -- -- -- Pre-op Lab/Test Results Available In chart -FS -- -- -- Arm Bands On -- ID;Allergies;Fall -DN ID;Allergies;Fall -DN ID;Allergies;Fall -DN Procedure Verification Correct Patient Yes -FS -- -- -- Correct Procedure Yes -FS -- -- -- Correct Laterality Yes right arm cast -FS -- -- -- Correct Site Yes -FS -- -- -- Site Marked Yes -FS -- -- -- Patient Preparation List Piercings Remaining -- -- Ears -DN -- Temp -- -- -- 37.1 ??C (98.7 ??F) -DN Piercings Remaining -- -- Yes -DN -- User Martinez (r) = Recorded By, (t) = Taken By, (c) = Cosigned By Initials Name DN Kel Issa, Melisa Lew RN Vascular Access Documentation (last 4 hours) [facility] Additional Procedures Row Name 02/19/23 1037 02/19/23 0800 PICC Screening Questionnaire Order written on the chart for PICC insertion or placement? Y -FS -- Information form/Consent Obtained from POA/ Family N -FS -- Is there an order from Renal giving ok to place PICC line? N/A -FS -- Are there any location restrictions? Y -FS -- Which location is NOT accessible for line placement? Right Pt. has casted right arm. -FS -- Reason location not accessible for line placement Other (comment) Right arm cast. -FS -- Does the patient have history of DVT or SVC syndrome? N -FS -- Does the patient currently have blood clots in chest / arms? N -FS -- Review of all IV meds/drips completed Yes -FS -- Patient allergies reviewed? Y -FS -- Labs Reviewed if applicable INR;Blood Cultures;Platelet count;Creatinine -FS -- Procedures Time in 1025 -FS -- Vascular Access Procedures PICC line assessment;Consult Pt.'s left arm assessed for PICC line, unable to use right arm, pt.'s right arm casted. Noted left forearm at a/c cellulitis from IV infiltrate. Assessed left upper arm and left basilic vein sufficient for PICC placement. -FS -- Consult Time spent discussing an issue with staff Pt.'s PTT need to be drawn due to bolus given @ 0600 this am and not been re-checked. PICC on hold until PTT results are known. -FS -- Peripheral IV 20 G Anterior;Distal;Left Wrist IV Properties Placed by External Staff?: Other hospital -LG Size (Gauge): 20 G - LG Location Orientation: Anterior;Distal;Left -LG Location: Wrist -LG Site Assessment -- Clean and dry -DN IV Line Status Single -- Infusing -DN Dressing Type -- Transparent -DN Dressing Status -- Clean, dry, intact -DN Reason Not Rotated -- Not clinically indicated -DN Peripheral IV 02/18/23 20 G Anterior;Left Forearm IV Properties Placement Date: 02/18/23 -DN Placement Time: 1515 -DN Size (Gauge): 20 G -DN LocationOrientation: Anterior;Left -DN Location: Forearm -DN Inserted by: roopa issa rn -DN Insertion attempts: 1 -DN Patient Tolerance: Tolerated well -DN Site Assessment -- Clean and dry -DN IV Line Status Single -- Infusing -DN Dressing Type -- Transparent -DN Dressing Status -- Clean, dry, intact -DN Reason Not Rotated -- Not clinically indicated -DN User Martinez (r) = Recorded By, (t) = Taken By, (c) = Cosigned By Initials Name LG Mike Florez RN DN Needham, David, RN FS Sitzes, Francine M., RN Plan: Follow up: Awaiting PTT results to place PICC line. Melisa Braga RN documented in this encounter Consult Notes * Justin Valdez MD - 03/17/2023 5:22 PM CDTAssociated Order(s): IP CONSULT TO GASTROENTEROLOGY General GI Initial Consult Chief complaint: Recurrent nausea and vomiting Reason for consult: intractable nausea with PO intolerance intake Requesting provider: Te Baker MD HPI: This is a 77 y.o. female w/ PMH of pAF, Apical variant HCM, CAD with OR in 2012 s/p CABG with LAWSON to LAD and SVG to OM, HTN, DDD,diverticulitis, vertigo, prior DVT, OA who presents as an OSH transfer for AFib with RVR complicated by hemodynamic instability now rate controlled on oral dig / metop /amio found to have MRSA cellulitis and MRSA bacteremia with septic pulmonary emboli on Vanc. She presented to the hospital after dizzy spell on 02/11, found to be in AFib with RVR. This occurred 5 days after a discharge from the [facility] upon receiving treatment for a right radial fracture. She came in with SOB while walking on level ground, but no palpitations or chest discomfort. She has been compliant with Eliquis 5mg BID without any missed doses. She developed new nausea and dizziness at rest from 03/01-, managed by Zofran. The nausea and vomiting seem to be related with food as patient reports feeling nauseous after oral intake. She usuallywould have dry heaves and no vomitus. This began a few days prior to admission but has increased inintensity. She reports past episodes of indigestion for which she responded well to treatment priorto admission.She however has a history of abdominal surgery but reported that in the event of vomiting, it is usually clear fluid, non-bilious, non- bloody. It is sometimes associated with lower abd pain that does not radiate but is a grade of 6/10 and usually self-limiting. She also reported that she sometimes passes diarrheal stools, non-bloody but has not passed any stool since yesterday.She has no history of PUDx. She is currently stable but has limited PO tolerance.She was transfused a unit of blood over the weekend. Today, she denies any abdominal pain,nausea, vomiting, diarrhea, fever and chills. She has also notpassed any stools or vomited today. Past Medical History: Diagnosis Date Acid reflux Heart murmur High cholesterol History of blood clots 1960s in leg as teenager - had phlebitis History of OR (myocardial infarction) 2012 History of vertebral fracture 2017 HTN (hypertension) IBS (irritable bowel syndrome) Vertigo Past Surgical History: Procedure Laterality Date COLON SURGERY 1992 Repair burst colon CORONARY ARTERY BYPASS GRAFT 2012 Double by-pass - [facility] FLUORO GUIDED INJECTION HIP RIGHT Right 05/16/2022 FLUORO GUIDED INJECTION HIP RIGHT Right 08/15/2022 FLUORO GUIDED INJECTION HIP RIGHT Right 12/10/[address] James ([place], [place]) TOTAL KNEE ARTHROPLASTY Right 2018 No current facility-administered medications on file prior to encounter. Current Outpatient Medications on File Prior to Encounter Medication Sig acetaminophen (TYLENOL) 325 mg tablet alendronate (FOSAMAX) 70 mg tablet TAKE 1 TABLET BY MOUTH ONE TIME PER WEEK apixaban (Eliquis) 5 mg tablet TAKE 1 TABLET BY MOUTH TWICE DAILY aspirin 81 mg tablet daily. (Patient not taking: Reported on 01/13/2023) atorvastatin (LIPITOR) 80 mg tablet TAKE 1 TABLET AT BEDTIME. calcium carbonate-vitamin D3 500 mg(1,250mg) -400 unit chewable tablet Take 1 tablet by mouth daily cannabidiol, CBD, (medical cannabis) each 1 Dose [...] by mouth 2 (two) times a day docusate sodium (COLACE) 100 mg capsule TAKE 1 CAPSULE TWICE DAILY NEEDED. (Patient not taking: Reported on 05/01/2022) ezetimibe (ZETIA) 10 mg tablet TAKE 1 TABLET BY MOUTH EVERY DAY furosemide (LASIX) 40 mg tablet Take 1 tablet (40 mg total) by mouth 2 (two) times a day gabapentin (NEURONTIN) 100 mg capsule Take by mouth 4 (four) times a day LINZESS 145 mcg capsule Take by mouth daily. lisinopriL (PRINIVIL,ZESTRIL) 10 mg tablet Take 1 tablet (10 mg total) by mouth daily metoprolol XL (TOPROL-XL) 25 mg extended release tablet Take 1 tablet (25 mg total) by mouth daily multivitamin no.44-vit D3-K 1,000-800 unit-mcg capsule daily. omeprazole (PriLOSEC) 20 mg capsule Take 1 capsule (20 mg total) by mouth daily sertraline (ZOLOFT) 100 mg tablet Take 0.5 tablets (50 mg total) by mouth daily Allergies Allergen Reactions Codeine Hives and Shortness of breath Latex Itching Milk Nausea & Vomiting Tramadol Nausea & Vomiting and Unknown Social History reports that she has never smoked. She has been exposed to tobacco smoke. She has never used smokeless tobacco. She reports current drug use. Drug: Medical marijuana. Patient denies consuming alcoholic drinks. Family History family history includes Hypertension in her child; Prostate cancer in her father; Stroke in her child. Review of Systems: Review of systems per HPI and otherwise all other systems are negative OBJECTIVE Vitals: 24hr Min/Max: Temp Min: 36.7 ??C (98.1 ??F) Max: 37.1 ??C (98.8 ??F) Pulse Min: 61 Max: 91 BP Min: 132/51 Max: 153/65 Resp Min: 18 Max: 20 SpO2 Min: 91 % Max: 96 % I/O last 2 completed shifts: In: 1200 [P.O.:150; IV Piggyback:1050] Out: 1350 [Urine:1350] I/O this shift: In: 1030 [P.O.:30; IV Piggyback:1000] Out: 200 [Urine:200] Physical Exam: General: Well-developed in NAD. HEENT: NC/AT. EOMI. MMM. Neck: Supple. No tenderness, enlargement, JVD or LAD noted. Lungs: CTAB. No wheezing or crackles heard. No respiratory distress. Heart: RRR. +S1, S2. No murmurs or gallops appreciated. Abdomen: Soft. NT/ND. BS active. No organomegaly. Ext/MS: No edema, cyanosis, or erythema. Good muscle strength and tone. Neuro: A&O x3. No focal deficits noted. Psych: Appears to have normal affect, mood, judgement, and insight. Skin: No obvious rashes or lesions noted. LABS: Lab Results Component Value Date WBC 3.9 03/16/2023 HGB 8.0 (L) 03/16/2023 HCT 24.9 (L) 03/16/2023 MCV 89.2 03/16/2023 LABPLAT 94 (L) 03/16/2023 Lab Results Component Value Date GLUCOSE 83 03/16/2023 CALCIUM 8.6 03/16/2023 SODIUM 142 03/16/2023 POTASSIUM 3.6 03/16/2023 CO2 25 03/16/2023 CHLORIDE 106 03/16/2023 BUNSER 5 (L) 03/16/2023 CREATININE 1.23 (H) 03/16/2023 Lab Results Component Value Date ALT 17 02/23/2023 AST 21 02/23/2023 ALKPHOS 98 02/23/2023 BILITOT 0.3 02/23/2023 Lab Results Component Value Date INR 1.78 (H) 02/17/2023 INR 1.42 (H) 09/15/2012 INR 1.8 (H) 09/15/2012 IMAGING Results for orders placed during the hospital encounter of 02/17/23 US Upper Extremity Left Limited Narrative EXAMINATION: US UPPER EXTREMITY LEFT LIMITED HISTORY: 77-year-old female with proximal atrial fibrillation with rapid ventricular response, septic emboli, MRSA bacteremia and cellulitis. This exam was requested to evaluate for cellulitis of the left upper extremity. COMPARISON: None FINDINGS: There is subcutaneous, soft tissue edema at the palpable area of concern. There are linear echogenicities within the underlying muscle (image 170). There are multiple round hypoechogenicities in the subcutaneous tissues of the largest of which measures up to 4 mm (image 100). Impression 1. Cellulitis with underlying myositis 2. Rounded areas of hypoechogenicity, which may represent small fluid without a drainable collection. :: Dictated by: Syed Guadalupe MD The radiology attending physician has personally reviewed this study, and had reviewed and/or edited this written report and agrees with it. Electronically signed by: Santino Robledo M.D. Results for orders placed during the hospital [...] effusions. Electronically signed by: Beto Sinha M.D. ASSESSMENT AND PLAN 77 y.o. female w/ PMH of pAF, Apical variant HCM, CAD with OR in 2013 s/p CABG with LAWSON to LAD andSVG to OM, HTN, DDD,diverticulitis, vertigo, prior DVT, OA who presents as an OSH transfer for AFibwith RVR complicated by hemodynamic instability now rate controlled on oral dig / metop /amio foundto have MRSA cellulitis and MRSA bacteremia with septic pulmonary emboli on Vanc. Impression: #Intractable Nausea/vomiting Ongoing since 03/02/[address] findings without acute findings within abdomen. Possible gastritis. While she does have a history of bowel perforation and takedown colostomy, it does not appear to be a stricture. Recommendations: - alternate with compazine - continue home linzess - colonoscopy as outpatient We will continue to follow-up with you. Thank you for involving us in the care of this patient. If you have any questions, please call the general GI phone during weekdays or the general GI phone during after hours and weekends. Justin Valdez MD Gastroenterology Fellow Cosigned by Alize Hernandez MD at 03/18/2023 9:48 AM CDT Associated attestation - Alize Hernandez MD - 03/18/2023 9:48 AM CDT I have seen and examined the patient on 03/17/2023. I agree with the findings and plan of care as documented in the resident's/fellow's note. Today, I am treating the patient for N/V and concern for decreased PO intake which is in moderate in severity as described in the note. This diagnosis directly impacts my medical decision making. I reviewed [facility]. I independently interpreted test: CT scan and my findings are with only mild colitis and no concernfor colonic stricture or obstruction. I recommended the following lab/study/test: continued symptom management of nausea with alternatingagents (zofran and compazine). As zofran can be constipating, we are recommending that she re-starther home dose of linzess I discussed management with the primary team. I discussed the risk/benefit of altering her medications and decision was made to proceed with further symptomatic management. . * Ric Abraham MD - 03/07/2023 2:39 PM CDTAssociated Order(s): IP CONSULT TO NEUROLOGY Images from the original note were not included. Neurology Consult Note Visit date: 03/07/2023 Patient: Tiera Lobato Neurology Initial Consult Note Requesting Provider or Service: Benjamín Mancuso, *, Cardiology Reason for Consult: Vertigo/dizziness Subjective HISTORY OF PRESENT ILLNESS Tiera Lobato is a 77 y.o. female with a history of pAF, Apical variant HCM, CAD with OR in 2012 s/p CABG with LAWSON to LAD and SVG to OM, HTN, prior DVT who presents as an OSH transfer for AFibwith RVR complicated by hemodynamic instability s/p cardioversion on 02/23 and currently rate controlled on oral dig/metop. Her hospital course has been complicated by MRSA bacteremia, septic PE, and CLAUDIA. Neurology has been consulted for dizziness and vertigo that has been present since 03/01. Patient has had a long hospital course with multiple medical co-morbidities as detailed above. She developed new nausea and dizziness on 03/01 that is being managed by Zofran. A HINTS exam was performed by the primary team which showed unidirectional, horizontal nystagmus, negative skew test, and abnormal head impulse test, suggesting peripheral rather than central vestibulopathy. She has been in NSR since the cardioversion but revered back to Afib with RVR after metop was temporarily held for heart block and vasovagal event. Additionally she had n/v/dizziness/headache on 03/05 while on PO [id number] BID with positive orthostatic hypotension. She was given fluids. Her most recent orthostatic test on 03/07 was positive after three minutes of sitting and three minutes of standing (150/65->129/71). Overnight she became dizzy again with HR in 50s, vagal symptoms, gave 500mL bolus and zofran which did not seem to make a difference to the pt. Per the patient, her dizziness started on 03/01. She endorses both a room- spinning sensation and fainting sensation as her description. She endorses acute onset, intermittent, lasting from 5-10 minutes, head turning and standing sometimes makes it worse. Notes it is improving somewhat. Denies this ever happening before. Has episodes of nausea and vomiting that she believes are unrelated to her dizziness. Denies hearing loss or tinnitus. PAST MEDICAL & SURGICAL HISTORY Past Medical History: Diagnosis Date Acid reflux Heart murmur High cholesterol History of blood clots 1960s in leg as teenager - had phlebitis History of OR (myocardial infarction) 2012 History of vertebral fracture 2017 HTN (hypertension) IBS (irritable bowel syndrome) Vertigo Past Surgical History: Procedure Laterality Date COLON SURGERY 1992 Repair burst colon CORONARY ARTERY BYPASS GRAFT 2012 Double by-pass - [facility] FLUORO GUIDED INJECTION HIP RIGHT Right 05/16/2022 FLUORO GUIDED INJECTION HIP RIGHT Right 08/15/2022 FLUORO GUIDED INJECTION HIP RIGHT Right 12/10/[address] James ([place], [place]) TOTAL KNEE ARTHROPLASTY Right 2018 FAMILY HX: Family History Problem Relation Age of Onset Prostate cancer Father Stroke Child Hypertension Child SOCIAL HX: Does not smoke OUTPATIENT MEDICATIONS HOME MEDICATIONS : acetaminophen (TYLENOL) 325 mg tablet alendronate (FOSAMAX) 70 mg tablet apixaban (Eliquis) 5 mg tablet aspirin 81 mg tablet atorvastatin (LIPITOR) 80 mg tablet calcium carbonate-vitamin D3 500 mg(1,250mg) -400 unit chewable tablet cannabidiol, CBD, (medical cannabis) each cholecalciferol (VITAMIN D-3) 1,000 unit tablet clopidogreL (PLAVIX) 75 mg tablet cyanocobalamin (Vitamin B-12) 1,[address] (VOLTAREN) 75 mg EC tablet docusate sodium (COLACE) 100 mg capsule ezetimibe (ZETIA) 10 mg tablet furosemide (LASIX) 40 mg tablet gabapentin (NEURONTIN) 100 mg capsule LINZESS 145 mcg capsule lisinopriL (PRINIVIL,ZESTRIL) 10 mg tablet metoprolol XL (TOPROL-XL) 25 mg extended release tablet multivitamin no.44-vit D3-K 1,000-800 unit-mcg capsule omeprazole (PriLOSEC) 20 mg capsule sertraline (ZOLOFT) 100 mg tablet INPATIENT MEDICATIONS Scheduled Medications: Scheduled Medications Medication Dose Route Frequency amiodarone (PACERONE) tablet 400 mg 400 mg oral BID apixaban (ELIQUIS) tablet 5 mg 5 mg oral BID atorvastatin (LIPITOR) tablet 80 mg 80 mg oral Nightly calcium carbonate-vitamin D3 1,250mg (500mg elemental) - 5 mcg (200 units) per tablet 1 tablet 1 tablet oral Daily clopidogreL (PLAVIX) tablet 75 mg 75 mg oral Daily diclofenac sodium (VOLTAREN) 1 % gel 2 g 2 g topical TID ezetimibe (ZETIA) tablet 10 mg 10 mg oral Daily gabapentin (NEURONTIN) capsule 200 mg 200 mg oral BID lidocaine (LIDODERM) 5 % patch 1 patch 1 patch transdermal Daily lidocaine (LIDODERM) 5 % patch 2 patch 2 patch transdermal Daily linaCLOtide (LINZESS) capsule 145 mcg 145 mcg oral Before breakfast linezolid (ZYVOX) tablet 600 mg 600 mg oral BID [Held by Provider] metoprolol XL (TOPROL-XL) extended release tablet 25 mg 25 mg oral Daily pantoprazole DR (PROTONIX) extended release tablet 40 mg 40 mg oral Daily sertraline (ZOLOFT) tablet 50 mg 50 mg oral Daily sodium chloride 0.9% flush 5-10 mL 5-10 mL intra-catheter Q12H AGUS Continuous Medications: Current Facility-Administered Medications Medication Dose Route Frequency Last Admin PRN Medications: acetaminophen, 1,000 mg, 1,000 mg at 02/18/23 1602 camphor-menthoL, , 1 Application at 02/22/23 2220 ondansetron ODT, 4 mg, 4 mg at 03/07/23 0300 sodium chloride 0.9%, 5-20 mL, 10 mL at 03/04/23 1417 REVIEW OF SYSTEMS A complete review of symptoms was performed including constitutional symptoms, cardiovascular, respiratory, gastrointestinal, genitourinary, musculoskeletal, neurological, psychiatric, endocrine, immunologic, integumentary, hematological, eyes, ears, nose, mouth and throat. All symptoms negative except as per HPI. Objective PHYSICAL EXAM Vitals: 24 hr Min/Max: Temp Min: 36.6 ??C (97.9 ??F) Max: 36.8 ??C (98.2 ??F) Pulse Min: 54 Max: 60 BP Min: 98/50 Max: 134/77 Resp Min: 16 Max: 18 SpO2 Min: 91 % Max: 98 % Most Recent: Vitals: 03/07/23 0904 BP: 134/77 Pulse: Resp: Temp: SpO2: Height: 162.6 cm (5' 4 ) Weight: 81.3 kg (179 lb 3.7 oz) BMI (Calculated): 30.8 GENERAL EXAMINATION CONSTITUTIONAL: In no acute distress, resting comfortably HENT: normocephalic, atraumatic, mucous membranes moist EYES: anicteric sclera PULM: no increased work of breathing CV/EXT: Extremities are warm and well perfused; no visible edema SKIN: dry, no suspicious rashes or lesions noted PSYCH: calm and cooperative, eye contact appropriate for medical condition NEUROLOGIC EXAM: Mental Status:The patient is alert and oriented to person, place, time and reason for visit. Attention is intact. Language: The patient has fluent speech and follows commands. Cranial Nerves II-XII: PERRL. Extraocular movements are full. Intermittent right nystagmus on rightward gaze. V1-3 is intact to light touch bilaterally. Face is symmetric, hearing is intact bilaterally to finger rub and palate is up-going bilaterally. There is no dysarthria. Motor: Strength is 5/5 throughout, though RLE is limited by pain. Muscle tone and bulk are normal. Reflexes: Did not examine Sensation: Light touch is normal in all four extremities. Coordination:No ataxia on FNF Ambulation: Deferred HINTS:Catch up saccades present. Intermittent right nystagmus on rightward gaze. Skew deviation negative. E[place] and [place]-hallpike maneuver performed without triggering of symptoms. Lab/Radiology/Diagnostic Review: Laboratory Data Recent Labs Lab Units 03/01/23201302/28/232032 WBC K/cumm 4.3 5.8 HEMOGLOBIN g/dL 7.7* 7.6* HEMATOCRIT % 24.4* 24.4* PLATELETS K/cumm 251 258 Recent Labs Lab Units 03/07/23 1029 03/06/23 2127 03/06/23 0839 SODIUM mmol/L 139 141 139 POTASSIUM PLASMA mmol/L 4.4 4.1 4.3 CHLORIDE mmol/L 103 105 102 CO2 mmol/L 29 30 30 BUN SERUM mg/dL 9 10 12 CREATININE mg/dL 1.76* 1.82* 2.02* GLUCOSE mg/dL 92 96 90 CALCIUM mg/dL 9.1 9.5 9.1 No lab exists for component: LABALBU Lab Results Component Value Date HGBA1C 5.8 (H) 02/18/2023 , Lab Results Component Value Date LDLCALC 37 02/18/2023 Neuro Diagnostics: No results found for this or any previous visit. Assessment /Plan ASSESSMENT AND PLAN Tiera Lobato is a 77 y.o. female with a history of pAF, Apical variant HCM, CAD with OR in 2012 s/p CABG with LAWSON to LAD and SVG to OM, HTN, prior DVT who presents as an OSH transfer for AFibwith RVR complicated by hemodynamic instability s/p cardioversion on 02/23 and currently rate controlled on oral dig/metop. Her hospital course has been complicated by MRSA bacteremia, septic PE, and CLAUDIA. Neurology has been consulted for dizziness and vertigo that has been present since 03/01. Her vertigo is concerning for a peripheral etiology given episodic events with possible triggers (head turning and standing). I suspect a contribution of a peripheral vertigo with cardiovascular/orthostasis as the etiology (her most recent orthostatic vital signs were positive, bradycardia and vagal symptoms present). Additionally, at the time of the visit, her HINTS exam was not concerning for acentral etiology, though she was not endorsing vertigo at the time. Additionally, the rest of her neurological exam was not revealing for any focal etiology. Recommendations: # Peripheral vertigo When patient is stable, recommend obtaining a brain MRI w/o contrast. Rest of cardiovascular and orthostasis management per primary team. Thank you for this consult. Please do not hesitate to contact us with any questions or concerns. This consult was staffed by the attending physician on 03/07 in the afternoon. Neurology consults will peripherally follow along for brain MRI results. If you have any questions or need re-evaluation in the interim, please contact neurology consults at [phone] (senior) and specify that this consult was staffed with Consult Team B. Ric Abraham MD Neurology Resident, PGY-3 Cosigned by Justyna Macedo MD at 03/11/2023 12:08 PM CDT Associated attestation - Justyna Macedo MD - 03/11/2023 12:08 PM CDT I have seen and examined the patient on 03/07/2023. I agree with the findings and plan of care as documented in the resident's/fellow's note. Ms. Lobato' symptoms have improved somewhat, her MRI shows old findings of small vessel changes but no acute findings. Justyna Macedo MD, MSCE [employer] Bore Helper of Neurology [facility] Department of Neurology [facility] in [place] * Heidi Chapa MD - 02/21/2023 1:50 PM CDTAssociated Order(s): IP CONSULT TO TRAUMA SURGERY [facility] Acute Care Surgery Consultation Encounter Date: 02/21/23 Patient Identification Patient's Primary Care Physician: Cristian Ling MD Name: Tiera Lobato Age: 77 y.o. Sex: female Physician requesting Consult: Franca Echevarria* Reason for Consultation: left forearm cellulitis with suspected fluid collection . Assessment & Plan: Tiera Lobato is a 77 y.o. female with a PMHx of pAF, CAD with OR in 2012 s/p CABG with LAWSON to LAD and SVG to OM, HTN, DDD,diverticulitis, vertigo, prior DVT, OA who presents as an OSH transfer for AFib with RVR with assc hemodynamic instability, PNA and left forearm cellulitis due to IV infiltration and MRSA positive blood cultures. Patient transferred to [facility] for higher level care. ACCS consulted for worsening left forearm cellulitis despite IV abx suspicious for underlying abscess. Left forearm US cellulitis w/myositis, CT scan cellulitis with suspected phlegmonous changes in the soft tissues, no fluid collection. WBC 7.8 Plan Cont IV abx No surgical intervention at this time ACCS will sign off Discussed with attending: Kyung Valderrama MD, PhD at 2pm (time). Please call the [facility] Inpatient Consult Phone with any questions or concerns regarding this patient. Heidi Chapa MD Resident Physician General Surgery [facility] Inpatient Consult ACCS ED Consult [facility] Outpatient Clinic - option 1 _ Patient information was obtained from patient. History/Exam limitations: none. Chief Complaint Left forearm cellulitis History of Present Illness: Tiera Lobato is a 77 y.o. female with a PMHx of pAF, CAD with OR in 2013 s/p CABG with LAWSON to LAD and SVG to OM, HTN, DDD,diverticulitis, vertigo, prior DVT, OA who presents as an OSH transfer for AFib with RVR with assc hemodynamic instability, PNA and left forearm cellulitis with MRSA positive blood cultures. Patient transferred to [facility] for higher level care. ACCS consulted for worsening left forearm cellulitis despite IV abx suspicious for underlying abscess. Past Medical: Past Medical History: Diagnosis Date Acid reflux Heart murmur High cholesterol History of blood clots 1960s in leg as teenager - had phlebitis History of OR (myocardial infarction) 2012 History of vertebral fracture 2018 HTN (hypertension) IBS (irritable bowel syndrome) Vertigo Surgical History: Past Surgical History: Procedure Laterality Date COLON SURGERY 1992 Repair burst colon CORONARY ARTERY BYPASS GRAFT 2012 Double by-pass - [facility] FLUORO GUIDED INJECTION HIP RIGHT Right 05/16/2022 FLUORO GUIDED INJECTION HIP RIGHT Right 08/15/2022 FLUORO GUIDED INJECTION HIP RIGHT Right 12/10/[address] James ([place], [place]) TOTAL KNEE ARTHROPLASTY Right 2018 Current Medications: Current Facility-Administered Medications Medication Dose Route Frequency Provider Last Rate Last Admin acetaminophen (TYLENOL) tablet 1,000 mg 1,000 mg oral Q6H PRN Olimpia Long MD 1,000 mg at 02/18/23 1602 amiodarone in dextrose (NEXTERONE) 360 mg/200 mL (1.8 mg/mL) infusion (premix) 1 mg/min intravenousContinuous Olimpia Long MD 33.3 mL/hr at 02/21/23 1300 1 mg/min at 02/21/23 1300 atorvastatin (LIPITOR) tablet 80 mg 80 mg oral Nightly Olimpia Long MD 80 mg at 02/20/232031 calcium carbonate-vitamin D3 1,250mg (500mg elemental) - 5 mcg (200 units) per tablet 1 tablet 1 tablet oral Daily Olimpia Long MD 1 tablet at 02/21/23 0904 clopidogreL (PLAVIX) tablet 75 mg 75 mg oral Daily Olimpia Long MD 75 mg at 02/21/23 0904 digoxin (LANOXIN) tablet 125 mcg 125 mcg oral Q24H Olimpia Long MD 125 mcg at 02/21/23 0904 ezetimibe (ZETIA) tablet 10 mg 10 mg oral Daily Olimpia Long MD 10 mg at 02/21/23 0904 gabapentin (NEURONTIN) tablet 600 mg 600 mg oral BID Olimpia Long MD 600 mg at 02/21/23 0903 heparin 1,000 unit/mL injection 2,000 Units 2,000 Units intravenous Q6H PRN Olimpia Long MD 2,000 Units at 02/19/23 1935 Or heparin 1,000 unit/mL injection 3,000 Units 3,000 Units intravenous Q6H PRN Olimpia Long MD heparin in 0.9% sodium chloride 25,000 unit/250 mL infusion (premix) 0-33 Units/kg/hr intravenous Titrated Olimpia Long MD 14.11 mL/hr at 02/21/23 1300 17 Units/kg/hr at 02/21/23 1300 ketamine (KETALAR) injection 30 mg 30 mg intravenous Once Lobo Boykin MD lidocaine (LIDODERM) 5 % patch 2 patch 2 patch transdermal Daily Olimpia Long MD 2patch at 02/20/23 0859 linaCLOtide (LINZESS) capsule 145 mcg 145 mcg oral Before breakfast Olimpia Long MD metoprolol tartrate (LOPRESSOR) immediate release tablet 25 mg 25 mg oral Q6H Olimpia Long MD 25 mg at 02/21/23 1005 midazolam (VERSED) 1 mg/mL injection 2 mg 2 mg intravenous Once Lobo Boykin MD ondansetron (ZOFRAN) injection 4 mg 4 mg intravenous Q8H PRN Aleksey Mendez MD 4 mg at 02/18/[address] (PROTONIX) extended release tablet 40 mg 40 mg oral Daily Olimpia Long MD 40 mg at 02/21/23 0903 prochlorperazine (COMPAZINE) injection 5 mg 5 mg intravenous Q6H PRN Olimpia Long MD 5 mg at 02/18/23 0845 sertraline (ZOLOFT) tablet 50 mg 50 mg oral Daily Olimpia Long MD 50 mg at 02/21/23 0904 sodium chloride 0.9% flush 5-10 mL 5-10 mL intra-catheter Q12H AGUS Olimpia Long MD sodium chloride 0.9% flush 5-20 mL 5-20 mL intra-catheter PRN Olimpia Long MD vancomycin 1500 mg/515 mL in sodium chloride 0.9% (premix) 1,500 mg 1,500 mg intravenous Q24H Aleksey Mendez MD Allergies: Allergies Allergen Reactions Codeine Hives and Shortness of breath Latex Itching Tramadol Nausea & Vomiting and Unknown Family History: Family History Problem Relation Age of Onset Prostate cancer Father Stroke Child Hypertension Child Social History: reports that she has never smoked. She has been exposed to tobacco smoke. She has never used smokeless tobacco. She reports current drug use. Drug: Medical marijuana. Patient denies consuming alcoholic drinks. Review of Systems Constitutional: Negative for fatigue, weight loss, fevers, chills, anorexia Eyes: Negative for changes in vision or ocular discomfort Ears, nose, mouth, and throat: Negative for congestion, nasal drainage, sore throat Respiratory: Negative for shortness of breath, acute cough, asthma, wheezing Cardiovascular: Negative for chest pain, palpitations Gastrointestinal: Negative for nausea, vomiting, hemetemesis, hematochezia, abdominal pain, constipation, diarrhea Genitourinary: Negative for dysuria, hematuria Skin: Negative for rash, itching Hematologic/lymphatic: Negative for easy bruising, lymphadenopathy Musculoskeletal:left forearm redness and mild swelling Neurological: Negative for headaches, seizures Psychiatric: Negative for changes in mood, anxiety, depression Physical Examination: Ht:162.6 cm (5' 4 ) Wt:89.1 kg (196 lb 6.9 oz) Body mass index is 33.72 kg/m??. BP 115/71 (BP Location: Right arm, Patient Position: Lying) Pulse 103 Temp 37.1 ??C (98.7 ??F) (Oral) Resp 18 Ht 162.6 cm (5' 4 ) Wt 89.1 kg (196 lb 6.9 oz) SpO2 95% BMI 33.72 kg/m?? GENERAL: No acute distress, non toxic-appearing NEURO: Alert and oriented x3, no focal deficits PSYCH: Appropriate mood and affect HEENT: Normocephalic, atraumatic, pupils equal, EOMs grossly intact, neck supple, trachea midline RESP: Nonlabored breathing on room air, normal effort CARDIO: Regular rate and rhythm ABDOMEN: Soft, nontender to palpation, nondistended : Normal genitalia, no hernias, no signs of infection Ext: Warm and well perfused, no edema MUSCULOSKELETAL: left forearm with palpable cord, minimal erythema, + soft tissue edema, nontender , no drainage, no skin breakdown SKIN: Warm, dry without wounds or lesions Labs, Radiology and Diagnostic Review: Laboratory review: Lab results in the last 12 hours: Recent Results (from the past 12 hour(s)) Digoxin level Collection Time: 02/21/23 6:14 AM Result Value Ref Range Digoxin 1.1 (H) 0.5 - 0.8 ng/mL aPTT Collection Time: 02/21/23 6:14 AM Result Value Ref Range aPTT 85 (H) 28 - 38 sec POCT glucose Collection Time: 02/21/23 7:36 AM Result Value Ref Range Glucose, POC 115 70 - 199 mg/dL Imaging review: I have reviewed the result(s) Please see top of note for Assessment & Plan. Cosigned by Kyung Valderrama MD at 03/13/2023 2:09 PM CDT Associated attestation - Kyung Valderrama MD - 03/13/2023 2:09 PM CDT I have seen and examined the patient on 02/21/23. I agree with the findings and plan of care as documented in the resident's/fellow's note.. * Nallely Chaudhari MD PhD - 02/20/2023 2:54 PM CDTAssociated Order(s): CONSULT TO GENERAL INFECTIOUS DISEASE Infectious Disease Initial Consult Note Infectious Disease Team: General 4 Contact Information: Please see [facility] Treatment Team listing for up-to-date contact information. Requesting Physician: Franca Echevarria* Reason for Consult: Diagnostic and treatment recommendations, as well as assistance with follow up care. Subjective HPI: Tiera Lobato is a 77 year old lady with atrial fibrillation who is currently admitted to the ICU. Her hospital course has been complicated by MRSA bacteremia for which ID is consulted today. Ms. Lobato reports she was sitting at her assisted living facility when she became dizzy. She wastaken to an outside hospital where she was found to be in atrial fibrillation with RVR. While therecardioversion with amiodarone was briefly successful but only for a few hours. She required ongoingantiarrhythmic therapy with amiodarone infusion and then due to ongoing hemodynamic instability wastransferred to [facility] for further management. While at [facility] she also had an infectious workup performed which included blood cultures and 1 set of blood cultures from 02/15 was positive for MRSA - sensitive to vancomycin, clinda, erm,gent and tetracyclines, resistant to oxacillin and TMP-SMX. Her blood cultures were clear when nextchecked on 02/17/2023. She has been on IV vancomycin since that time and has remained afebrile with no leukocytosis. She has a prosthetic knee which she reports is not causing any new pain or joint instability. She reportsno new back pain or pain in any joints. She is tolerating the IV vancomycin well with no nausea, vomiting, diarrhea or rashes. Past Medical History: No date: Acid reflux No date: Heart murmur No date: High cholesterol 1960s: History of blood clots Comment: in leg as teenager - had phlebitis 2013: History of OR (myocardial infarction) 2018: History of vertebral fracture No date: HTN (hypertension) No date: IBS (irritable bowel syndrome) No date: Vertigo Past Surgical History: 1992: COLON SURGERY Comment: Repair burst colon 2013: CORONARY ARTERY BYPASS GRAFT Comment: Double by-pass - [facility] 05/16/2022: FLUORO GUIDED INJECTION HIP RIGHT; Right 08/15/2022: FLUORO GUIDED INJECTION HIP RIGHT; Right 12/10/2022: FLUORO GUIDED INJECTION HIP RIGHT; Right 1998: MICRODISCECTOMY Comment: Dr. James ([place], [place]) 2018: TOTAL KNEE ARTHROPLASTY; Right HOME MEDICATIONS : acetaminophen (TYLENOL) 325 mg tablet alendronate (FOSAMAX) 70 mg tablet apixaban (Eliquis) 5 mg tablet aspirin 81 mg tablet atorvastatin (LIPITOR) 80 mg tablet calcium carbonate-vitamin D3 500 mg(1,250mg) -400 unit chewable tablet cannabidiol, CBD, (medical cannabis) each cholecalciferol (VITAMIN D-3) 1,000 unit tablet clopidogreL (PLAVIX) 75 mg tablet cyanocobalamin (Vitamin B-12) 1,[address] (VOLTAREN) 75 mg EC tablet docusate sodium (COLACE) 100 mg capsule ezetimibe (ZETIA) 10 mg tablet furosemide (LASIX) 40 mg tablet gabapentin (NEURONTIN) 100 mg capsule LINZESS 145 mcg capsule lisinopriL (PRINIVIL,ZESTRIL) 10 mg tablet metoprolol XL (TOPROL-XL) 25 mg extended release tablet multivitamin no.44-vit D3-K 1,000-800 unit-mcg capsule omeprazole (PriLOSEC) 20 mg capsule sertraline (ZOLOFT) 100 mg tablet Current Facility-Administered Medications Ordered in Epic Medication Dose Route Frequency Provider Last Rate Last Admin acetaminophen (TYLENOL) tablet 1,000 mg 1,000 mg oral Q6H PRN Olimpia Long MD 1,000 mg at 02/18/23 1602 amiodarone in dextrose (NEXTERONE) 360 mg/200 mL (1.8 mg/mL) infusion (premix) 1 mg/min intravenousContinuous Olimpia Long MD 33.3 mL/hr at 02/20/23 1400 1 mg/min at 02/20/23 1400 atorvastatin (LIPITOR) tablet 80 mg 80 mg oral Nightly Olimpia Long MD 80 mg at 02/19/232004 calcium carbonate-vitamin D3 1,250mg (500mg elemental) - 5 mcg (200 units) per tablet 1 tablet 1 tablet oral Daily Olimpia Long MD 1 tablet at 02/20/23 0857 clopidogreL (PLAVIX) tablet 75 mg 75 mg oral Daily Olimpia Long MD 75 mg at 02/20/23 0857 digoxin (LANOXIN) tablet 125 mcg 125 mcg oral Q24H Olimpia Long MD 125 mcg at 02/20/23 0857 ezetimibe (ZETIA) tablet 10 mg 10 mg oral Daily Olimpia Long MD 10 mg at 02/20/23 0858 gabapentin (NEURONTIN) tablet 600 mg 600 mg oral BID Olimpia Long MD 600 mg at 02/20/23 0858 heparin 1,000 unit/mL injection 2,000 Units 2,000 Units intravenous Q6H PRN Olimpia Long MD 2,000 Units at 02/19/23 1935 Or heparin 1,000 unit/mL injection 3,000 Units 3,000 Units intravenous Q6H PRN Olimpia Long MD heparin in 0.9% sodium chloride 25,000 unit/250 mL infusion (premix) 0-33 Units/kg/hr intravenous Titrated Olimpia Long MD 14.11 mL/hr at 02/20/23 1400 17 Units/kg/hr at 02/20/23 1400 lidocaine (LIDODERM) 5 % patch 2 patch 2 patch transdermal Daily Olimpia Long MD 2patch at 02/20/23 0859 [Held by Provider] linaCLOtide (LINZESS) capsule 145 mcg 145 mcg oral Before breakfast Olimpia Long MD metoprolol tartrate (LOPRESSOR) immediate release tablet 25 mg 25 mg oral Q6H Olimpia Long MD ondansetron (ZOFRAN) injection 4 mg 4 mg intravenous Q8H PRN Aleksey Mendez MD 4 mg at 02/18/[address] (PROTONIX) extended release tablet 40 mg 40 mg oral Daily Olimpia Long MD 40 mg at 02/20/23 0858 prochlorperazine (COMPAZINE) injection 5 mg 5 mg intravenous Q6H PRN Olimpia Long MD 5 mg at 02/18/23 0845 sertraline (ZOLOFT) tablet 50 mg 50 mg oral Daily Olimpia Long MD 50 mg at 02/20/23 0858 sodium chloride 0.9% flush 5-10 mL 5-10 mL intra-catheter Q12H [facility] Olimpia Long MD sodium chloride 0.9% flush 5-20 mL 5-20 mL intra-catheter PRN Olimpia Long MD vancomycin 1,250 mg/262.5 mL in sodium chloride 0.9% (premix) 1,250 mg 1,250 mg intravenous Q24H Aleksey Mendez MD 1,250 mg at 02/19/232119 No current Epic-ordered outpatient medications on file. Anti-infectives (From admission, onward) Start Dose/Rate Route Frequency Ordered Stop 02/18/232099 vancomycin 1,250 mg/262.5 mL in sodium chloride 0.9% (premix) 1,250 mg 1,250 mg over 60 Minutes intravenous Every 24 hours 02/18/232027 Active Lines/Ports/Devices: PICC Triple Lumen 02/19/23 Non-tunneled Power #1 Doe, #2 Red, #3 White, Left Basilic;Upper arm (Active) Number of days: 1 Peripheral IV 02/18/23 20 G Anterior;Left Forearm (Active) Number of days: 2 Urethral Catheter Double-lumen (Active) Number of days: 5 Patient Allergies: Allergies Allergen Reactions Codeine Hives and Shortness of breath Latex Itching Tramadol Nausea & Vomiting and Unknown Social History Social History Narrative Not on file reports that she has never smoked. She has been exposed to tobacco smoke. She has never used smokeless tobacco. She reports current drug use. Drug: Medical marijuana. Patient denies consuming alcoholic drinks. Family history reviewed and non-contributory Family History Problem Relation Age of Onset Prostate cancer Father Stroke Child Hypertension Child Review of Systems: Negative except as per HPI Objective Vitals: 24hr Min/Max: Temp Min: 36.4 ??C (97.5 ??F) Max: 37.5 ??C (99.5 ??F) Pulse Min: 96 Max: 130 BP Min: 113/68 Max: 147/76 Resp Min: 12 Max: 22 SpO2 Min: 90 % Max: 97 % Physical Exam: General: Alert, seated in chair at bedside, interactive and cooperative with exam. Well appearing. Eyes and Mouth: pupils are equal and round, sclera anicteric, Moist mucous membranes, no oral lesions noted. Neck: supple, no lymphadenopathy Lungs: Breathing comfortably on room air. Clear to auscultation anteriorly Cardiac:tachycardic, no murmurs appreciated Abd: soft, nontender, nondistended, normoactive bowel sounds MSK: no joint swelling or effusions are noted. Full range of motion at elbows, wrists, knees and ankles. Spine: no spinal tenderness on palpation. Skin: No lesions or rashes noted on exposed skin Neuro: Facial features are symmetric, speech is clear and fluent and appropriate. Moves all extremities equally, sensation is intact to light Touch Access: IV site is clean/dry and intact Lab/Radiology/Diagnostic Review: I reviewed the following laboratory and imaging result(s). Micro: Lab Results Component Value Date MICROBIOLOGY Final Report: Negative 02/17/2023 MICROBIOLOGY Final Report: No growth 02/17/2023 MICROBIOLOGY Preliminary Report: No growth to date. 02/17/2023 MICROBIOLOGY Preliminary Report: No growth to date. 02/17/2023 Urinalysis: Resulted in the Past 12 Months 02/17/23 1827 COLORU Straw CLARITYU Clear SPECGRAVU 1.016 PHURINE 6.5 PROTURQL 1+* GLUCOSEUR Negative KETONESU Negative BLOODUR 2+* NITRITEU Negative LEUKESTUR Trace* Hematology/Chemistry: CBC: Lab Results Component Value Date WBC 5.4 02/20/2023 HGB 8.0 (L) 02/20/2023 HCT 25.2 (L) 02/20/2023 LABPLAT 291 02/20/2023 NEUTOPHILPCT 54.5 02/20/2023 LYMPHOPCT 23.9 02/20/2023 MONOPCT 16.9 02/20/2023 EOSPCT 3.3 02/20/2023 CMP: Lab Results Component Value Date SODIUM 136 02/20/2023 POTASSIUM 4.3 02/20/2023 CHLORIDE 103 02/20/2023 CO2 25 02/20/2023 ANIONGAP 8 02/20/2023 GLUCOSE 115 02/20/2023 BUNSER 7 02/20/2023 CREATININE 0.88 02/20/2023 BCR 16 09/24/2012 CALCIUM 8.8 02/20/2023 PROTEIN 6.8 09/14/2012 ALBUMIN 2.9 (L) 02/17/2023 ALKPHOS 116 02/17/2023 ALT 16 02/17/2023 AST 17 02/17/2023 BILITOT 0.3 02/17/2023 Creatinine:Estimated Creatinine Clearance: 47 mL/min (by C-G 65 yr and older- minimum SCr 0.8 basedon SCr of 0.88 mg/dL). Resulted in the Past 12 Months 02/20/23 0351 02/19/23 1750 02/19/23 0502 CREATININE 0.88 0.85 0.82 Inflammatory Markers: No results for input(s): SEDRATE , CRP in the last 8736 hours. Recent Labs Lab Units 02/18/23 1733 VANCOMYCIN TR mcg/mL 14.8 EKG: Lab Results Component Value Date VR 143 02/17/2023 QRSIMSEC 96 02/17/2023 QTIMSEC 310 02/17/2023 QT 478 02/17/2023 RA 36 02/17/2023 TA 205 02/17/2023 DIAG 02/17/2023 Atrial fibrillation with rapid ventricular response Minimal voltage criteria for LVH, may be normal variant ( Darnell product ) ST & T wave abnormality, consider lateral ischemia Abnormal ECG When compared with ECG of 20-JAN-2023 07:41, No significant change was found Confirmed by EDWAR RODRIUGEZ M.D ([id number]) on 02/18/2023 8:23:15 PM Echo:Results for orders placed during the hospital encounter of 02/17/23 Transthoracic Echo (TTE) Complete W Doppler/CF Narrative Patient name: Tiera Lobato Date of test: 02/20/2023 Type of test: TTE w/Doppler Hospital #: [id number] Date of : 1945 (F) Calender Let Off Operator: Elian Merino [facility] Referring Physician: FRANCA ECHEVARRIA MD Contrast Agent: 1.1 ml Optison Administered, (1.9 ml wasted). Contrast Administered by: ICU Nurse Supervised/Interpreted by: Piper Miller MD Diagnosis: Location: [facility] Reason for test: MRSA bacteremia MV Structure: Normal, MV Motion: Normal, Mitral Annulus: mildly calcified AV Structure: tricuspid and is mildly thickened, AV Motion: Normal Aotic root: Normal, TM: Normal, PV: Normal Valvular Vegetations: none seen, Mass/Thrombi: none seen RA: Normal Measurements: M-Mode Normal Aotic Root: <3.8 LA: <3.8 RV: <2.8 LV(ED): <5.7 LV(ES): Variable 2D Linear Normal Aotic Root: 2.7 cm <3.6 Ao Indexed: 1.4 cm/M2 <2.0 LA: <3.8 RV: 3.9 cm <4.2 LV(ED): 4.7 cm <5.3 LV(ES): 3.4 cm <3.5 2D Vol. Normal Indexed Indexed Normal RA: 34.0 ml 17.5 ml/M2 9-33 LA: 95.0 ml 49.0 ml/M2 16-34 RV: <11.6 LV(ED): 71.0 ml 46-106 36.6 ml/M2 <62 LV(ES): 18.0 ml 14-42 9.3 ml/M2 <25 3D Vol. Indexed Normal LV(ED): <62 LV(ES): <24 LV EF: 55-60 % (Normal: >=54%) LV Septum: 1.2 cm (Normal: <0.9 cm) Wall Motion Scoring (1=Normal 2=Hypo 3=Akinetic 4=Dyskin./Aneurysm 0=Not visualized) Parasternal Long Hayti:MAS=1 BAS=1 MIL=1 MATA=1 Parasternal Short Hayti:MAS=1 MIS=1 OR=1 MIL=1 MAL=1 MA=1 Apical 4 Chambers:=1 MIS=1 BIS=1 BAL=1 MAL=1 AL=1 AC=1 Apical 2 Chambers:AI=1 OR=1 BI=1 BA=1 MA=1 AA=1 AC=1 LV Global Longitudinal Strain: RV Global Longitudinal Strain: LV Function: Normal LV Ejection Fraction, (EF=54-74%) RV Function: Normal Septal Motion: Normal Pericardial Effusion: none seen Atrial Septum: Normal DOPPLER/COLOR FLOW DOPPLER RESULTS: Diastolic Function: indeterminate Tricuspid Valve: normal TV Pulmonic Valve: normal PV AV Regurgitation: No AR seen AV Stenosis: no AV Area: cm2 AV Pressure Gradient (mmHg): Mean: 0, Peak:0 MV Regurgitation: No MR seen MV Stenosis: no MS MV Area: cm2 MV Pressure Gradient (mmHg): Mean: 0 MV ERO: cm Regurg. Vol.: ml/beat Regurg. Frac.: % PA Pressure: 20+rap mmHg DOPPLER/COLOR FOLOW DOPPLER COMMENTS: No AR seen, No MR seen, no , no MS, normal TV, normal PV. Diastolic function: indeterminate CONTRAST: 1.1 ml Optison Administered, (1.9 ml wasted). SUMMARY: ?Afib during study which is technically difficult: LV size is normal. LVEF 55-60%. Apical hypertrophy present. Normal RV function. No significant valve disease. Estimated PASP 20mmHg+RA pressure. RA pressure is normal. Confirmed on 02/20/2023 - 12:38:33 by Piper Miller MD By signing this report, the attending senior cisco network engineer certifies that he or she has personally supervised and interpreted the echocardiogram and has reviewed and or edited and agrees with the written comments contained within the report. Imaging: XR Wrist Right 3 or More Views Result Date: 02/20/2023 Unchanged comminuted, intra-articular, minimally depressed, mildly impacted fracture of the distal radius Dictated by: Sami Amador MD XR Chest 1 View Result Date: 02/19/2023 Comparison with radiograph 02/17/2023. Left upper shimmed approach peripherally inserted central venous catheter tip overlies the superior vena cava. Patient is status post coronary bypass and mediansternotomy. Sternotomy wires are aligned and unchanged. Small left basilar effusion with accompanying atelectasis, unchanged from prior. No right pleural effusion. No pneumothorax. Bilateral peripheral nodular opacities are again seen, better evaluated on CT 02/18/2023. Unchanged cardiomediastinal silhouette. Dictated by: Itz Kemp MD PHD The radiology attending physician has personally reviewed this study, and had reviewed and/or edited this written report and agrees with it. Electronically signed by: Te Wayne M.D. XR Hand Right 3 or More Views Result Date: 02/19/2023 1. Unchanged comminuted, mildly depressed, intra-articular fracture of the distal right radius, managed with casting. 2. No additional fracture of the right elbow, forearm, wrist, and hand. Electronically signed by: Estella Reid M.D. XR Wrist Right 3 or More Views Result Date: 02/19/2023 1. Unchanged comminuted, mildly depressed, intra-articular fracture of the distal right radius, managed with casting. 2. No additional fracture of the right elbow, forearm, wrist, and hand. Electronically signed by: Estella Reid M.D. XR Radius Ulna Right 2 Views Result Date: 02/19/2023 1. Unchanged comminuted, mildly depressed, intra-articular fracture of the distal right radius, managed with casting. 2. No additional fracture of the right elbow, forearm, wrist, and hand. Electronically signed by: Estella Reid M.D. XR Elbow Right 3 or More Views Result Date: 02/19/2023 1. Unchanged comminuted, mildly depressed, intra-articular fracture of the distal right radius, managed with casting. 2. No additional fracture of the right elbow, forearm, wrist, and hand. Electronically signed by: Estella Reid M.D. Assessment/Plan Tiera Lobato is a 77 year old lady with atrial fibrillation who presented to an outside hospital in [place] fib with RVR with hemodynamic instability requiring transfer to [facility] for a higher level of care. Her hospital course was complicated by MRSA bacteremia. MRSA bacteremia: Unclear if this was present at admission, but she reports no preceding fevers or chills, and given rapid clearance of bacteremia and echo without any associated vegetations I suspect that this may ran nosocomial infection that she developed while at [facility]. However, given her prostheticknee I would prefer to treat with a four week course of antibiotic therapy. Recommendations: - Continue IV vancomycin at current dose, goal troughs of 15-20 - ID will continue to follow with you, provided blood cultures from 02/17 remain no growth can likelyfinalize plan and start/stop dates of antibiotic therapy tomorrow. Medical Decision Making:Today, I am treating the patient for MRSA bacteremia which can cause sepsisor in the short-term future in the absence of appropriate treatment, as described in the note. Nallely Chaudhari MD PhD Infectious Diseases Team 4 [facility] in the care of your patient. Please chat message in [employer] or call the ID team 4 attending with any questions or concerns at [phone] during daytime hours. If there is an emergency after hours then the ID fellow diamond setter can be reached at [phone]. * Bolivar Rasmussen MD - 02/19/2023 6:11 PM CDTAssociated Order(s): CONSULT TO ORTHO-TRAUMA Orthopaedic Surgery Hand/Flap Service Consult February 19, 2023 6:15 PM Reason for Consult: Right distal radius fracture Requesting Provider: [id number] ICU Imaging and notes were reviewed and evaluated within 30 minutes of consultation. Att/Fellow: Valeria/Devon Dx: R DR ledesma s/p reduction at OSH Procedure(s): None , HPI: 77 y.o. right hand dominant female s/p syncopal fall on 02/06 p/w R subacute DR ledesma. Was seen [facility] at time of injury, seen by ortho MD Nick Carbajal at that time and was reduced andplaced in orthoglass sugar tong. Patient reports closed injury. Has follow up with MD Carbajal tomorrow, however is admitted to ICU for AFib w/ RVR and hemodynamic instability. Pain has been controlled. No increased pain in the wrist over course of recent hospitalization. Exam: Reasonable, clean appearing splint without surrounding skin irritation. At the elbow. SILT r/m/uln distributions. +EPL, FPL,+IO, wiggles fingers within confines of splint. Hand WWP. OI: n/a. PMHx: PMH of pAF, Apical variantHCM, CAD with OR in 2013 s/p CABG with LAWSON to LAD and SVG to OM, HTN, DDD,diverticulitis, vertigo,prior DVT, OA. 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), retired, lives in alf Location: right upper extremity Quality: achy pain Duration: weeks Severity: mild Past Medical History: Diagnosis Date Acid reflux Heart murmur High cholesterol History of blood clots 1960s in leg as teenager - had phlebitis History of OR (myocardial infarction) 2012 History of vertebral fracture 2017 HTN (hypertension) IBS (irritable bowel syndrome) Vertigo Past Surgical History: Procedure Laterality Date COLON SURGERY 1992 Repair burst colon CORONARY ARTERY BYPASS GRAFT 2012 Double by-pass - [facility] FLUORO GUIDED INJECTION HIP RIGHT Right 05/16/2022 FLUORO GUIDED INJECTION HIP RIGHT Right 08/15/2022 FLUORO GUIDED INJECTION HIP RIGHT Right 12/10/[address] James ([place], [place]) TOTAL KNEE ARTHROPLASTY Right 2018 Prior to Admission medications Medication Sig Start Date End Date Taking? Authorizing Provider acetaminophen (TYLENOL) 325 mg tablet 09/21/12 Fidel Carranza MD alendronate (FOSAMAX) 70 mg tablet TAKE 1 TABLET BY MOUTH ONE TIME PER WEEK 11/09/18 Fidel Carranza MD apixaban (Eliquis) 5 mg tablet TAKE 1 TABLET BY MOUTH TWICE DAILY 12/23/22 Sami Stafford MD aspirin 81 mg tablet daily. Patient not taking: Reported on 01/13/2023 09/21/12 Fidel Carranza MD atorvastatin (LIPITOR) 80 mg tablet TAKE 1 TABLET AT BEDTIME. 09/21/12 Fidel Carranza MD calcium carbonate-vitamin D3 500 mg(1,250mg) -400 unit chewable tablet Take 1 tablet by mouth dailyFidel Carranza MD cannabidiol, CBD, (medical cannabis) each 1 Dose 3 (three) times a day as needed Tablets Patient not taking: Reported on 10/18/2022 Fidel Carranza MD cholecalciferol (VITAMIN D-3) 1,000 unit tablet Take 1 tablet (1,000 Units total) by mouth daily Fidel Carranza MD clopidogreL (PLAVIX) 75 mg tablet Take 1 tablet (75 mg total) by mouth daily 05/01/22 Anil Stafford MD cyanocobalamin (Vitamin B-12) 1,000 mcg tablet Take 2 tablets (2,000 mcg total) by mouth daily Fidel Carranza MD diclofenac DR (VOLTAREN) 75 mg EC tablet Take 1 tablet (75 mg total) by mouth 2 (two) times a day 11/04/19 Fidel Carranza MD docusate sodium (COLACE) 100 mg capsule TAKE 1 CAPSULE TWICE DAILY NEEDED. Patient not taking: Reported on 05/01/2022 09/21/12 Fidel Carranza MD ezetimibe (ZETIA) 10 mg tablet TAKE 1 TABLET BY MOUTH EVERY DAY 07/30/21 Sami Stafford MD furosemide (LASIX) 40 mg tablet Take 1 tablet (40 mg total) by mouth 2 (two) times a day 01/13/23 Sami Stafford MD gabapentin (NEURONTIN) 100 mg capsule Take by mouth 4 (four) times a day Fidel Carranza MD LINZESS 145 mcg capsule Take by mouth daily. 11/25/17 Fidel Carranza MD lisinopriL (PRINIVIL,ZESTRIL) 10 mg tablet Take 1 tablet (10 mg total) by mouth daily 04/08/22 Sami Stafford MD metoprolol XL (TOPROL-XL) 25 mg extended release tablet Take 1 tablet (25 mg total) by mouth daily 01/22/23 Sami Stafford MD multivitamin no.44-vit D3-K 1,000-800 unit-mcg capsule daily. Fidel Carranza MD omeprazole (PriLOSEC) 20 mg capsule Take 1 capsule (20 mg total) by mouth daily Fidel Carranza MD sertraline (ZOLOFT) 100 mg tablet Take 0.5 tablets (50 mg total) by mouth daily 11/09/19 Fidel Carranza MD Allergies Allergen Reactions Codeine Hives and Shortness of breath Latex Itching Tramadol Nausea & Vomiting and Unknown Social [...] Stroke Child Hypertension Child Review of Systems: Constitutional: Negative for chills and fever. HENT: Negative for acute hearing loss Eyes: Negative for pain and visual disturbance. Respiratory: Negative for cough and shortness of breath. Cardiovascular: Negative for chest pain and palpitations. Gastrointestinal: Negative for abdominal pain and vomiting. Genitourinary: Negative for dysuria and hematuria. Musculoskeletal: pain in injured extremity Skin: Negative for acute rash. Neurological: Negative for seizures and syncope. Review of systems per HPI and otherwise all other systems are negative. Objective Vitals: 24hr Min/Max: Temp Min: 36.9 ??C (98.4 ??F) Max: 37.3 ??C (99.1 ??F) Pulse Min: 95 Max: 146 BP Min: 113/70 Max: 140/83 Resp Min: 14 Max: 23 SpO2 Min: 93 % Max: 97 % Most Recent: Vitals: 02/19/23 1400 02/19/23 1500 02/19/23 1600 02/19/23 1700 BP: 129/71 127/76 127/75 136/76 BP Location: Right arm Patient Position: Lying Pulse: 115 110 111 118 Resp: 14 19 17 22 Temp: TempSrc: SpO2: 96% 96% 97% 97% Weight: Height: Physical Exam: Gen: Well-developed, well-nourished, in no acute distress. Alert and oriented: x3, fully conversant in the ICU Normal respirations, no dyspnea with speaking Right Upper Extremity Reasonable appearing orthoplast splint. Not much of a mold present. No irritation around exposed skin. Otherwise skin is intact. Fires extensor pollicis longus, flexor pollicis longus, and interosseous. Wiggles fingers in confines of splint. SILT median, ulnar, and radial nerve distributions, denies paresthesias Fingers warm and well perfused, brisk capillary refill <3 seconds Lab/Radiology/Diagnostic Review: Laboratory review: Recent Results (from the past 24 hour(s)) CBC with auto differential Collection Time: 02/19/23 5:02 AM Result Value Ref Range WBC 4.7 3.8 - 9.9 K/cumm Hgb 8.6 (L) 11.9 - 15.5 g/dL Hct 25.6 (L) 35.6 - 45.5 % Plt 274 150 - 400 K/cumm MPV 11.8 9.1 - 12.3 fL RBC 2.84 (L) 3.90 - 5.20 M/cumm MCV 90.1 81.3 - 96.4 fL MCH 30.3 27.1 - 33.3 pg MCHC 33.6 32.3 - 35.7 g/dL RDW CV 13.9 11.1 - 14.9 % RDW SD 45.9 35.7 - 48.1 fL NRBC abs 0.00 0.00 - 0.01 K/cumm Basic metabolic panel Collection Time: 02/19/23 5:02 AM Result Value Ref Range Sodium 141 135 - 145 mmol/L Potassium, pl 4.0 3.3 - 4.9 mmol/L Chloride 110 97 - 110 mmol/L CO2 22 22 - 32 mmol/L Anion gap 9 2 - 15 mmol/L BUN 8 6 - 25 mg/dL Creatinine 0.82 0.60 - 1.10 mg/dL Glucose 104 70 - 199 mg/dL Calcium 8.8 8.5 - 10.3 mg/dL Magnesium Collection Time: 02/19/23 5:02 AM Result Value Ref Range Magnesium 1.9 1.4 - 2.5 mg/dL Digoxin level Collection Time: 02/19/23 5:02 AM Result Value Ref Range Digoxin 2.0 (H) 0.5 - 0.8 ng/mL aPTT Collection Time: 02/19/23 5:02 AM Result Value Ref Range aPTT 45 (H) 28 - 38 sec Differential, auto Collection Time: 02/19/23 5:02 AM Result Value Ref Range Neutrophil abs 2.5 1.7 - 6.5 K/cumm Imm gran abs 0.0 0.0 - 0.1 K/cumm Lymphocyte abs 1.1 0.8 - 3.3 K/cumm Monocyte abs 0.8 0.2 - 0.8 K/cumm Eosinophil abs 0.2 0.0 - 0.5 K/cumm Basophil abs 0.0 0.0 - 0.1 K/cumm Neutrophil pct 53.2 % Imm gran pct 0.6 % Lymphocyte pct 24.4 % Monocyte pct 16.1 % Eosinophil pct 5.1 % Basophil pct 0.6 % eGFR Collection Time: 02/19/23 5:02 AM Result Value Ref Range eGFR 74 (L) 90 - 130 mL/min/1.73 m2 aPTT Collection Time: 02/19/23 11:37 AM Result Value Ref Range aPTT 54 (H) 28 - 38 sec Radiology Review: I independently reviewed and interpreted the imaging with the following findings: XR of the right wrist independently reviewed demonstrates a well aligned distal radius fracture. There is neutral tilt, possibly slightly dorsal. There is a dorsal fracture fragment. There is slight loss of radial height and inclination. Clinical Images: None Procedure: None Assessment/Plan: 77 y.o. female p/w R distal radius fracture 2 weeks agoOrtho consulted to provide follow up recommendations. Patient will be treated non-operatively. Will maintain current immobilization as patient has been reduced and under care of outside orthopaedic surgeon. This plan is pending prior imaging. -Please obtain initial injury x-rays and post-reduction x-rays from [facility] of the right wrist as well as any other pertinent imaging. -Please plan on obtaining x-rays in 1 week if patient is still in-house. -Maintain NWB R hand, OK for platform weight bearing through the elbow. Needs to work with PT -Reach out to ortho with any concerning developments including suddenly increased wrist pain. -Plan on follow up with MD Carbajal on leaving the hospital. If patient is admitted long-term >1 week, will discuss transferring care to our ortho hand service. Bolivar Rasmussen MD Orthopaedic Surgery PGY-4 Normal business hours: If you know the resident's name on the appropriate orthopaedic surgery team,please use the Directory Search at [email or web address] to page resident directly. If questions arise and the appropriate resident can't be reached or you are calling overnight, please contact [phone] ([place]- 7:30 PM - 6:30 AM - Floor Resident) or [phone] (24 hours/day - Consult Resident) Cosigned by Alisha Osorio MD at 02/19/2023 8:11 PM CDT Associated attestation - Alisha Osorio MD - 02/19/2023 8:11 PM CDT I have seen and examined the patient on 02/19/23. I agree with the findings and plan of care as documented in the resident's/fellow's note. * Luz Maria Ham RN - 02/19/2023 12:51 PM CDTAssociated Order(s): CONSULT TO WOUND CARE Consult received regarding left arm cellulitis. Upon assessment, there are no open areas noted but the arm is reddened. Leave the arm open to the air. For further questions, concerns or changes please call the wound/ostomy team. RONA Dalton, RN, CWON * Archie Mayo MD - 02/18/2023 10:07 AM CDTAssociated Order(s): IP CONSULT TO ELECTROPHYSIOLOGY Cardiology Consult Note - Electrophysiology Patient Name: Tiera Lobato : 1945 Date of Service: 02/18/23 Requesting Attending: Franca Echevarria* Reason for Consult: afib Chief Complaint: Afib HPI Tiera Lobato is a 77 y.o. female with a history of pAF, Apical variant HCM, CAD with OR in 2013 s/p CABG with LAWSON to LAD and SVG to OM, HTN, DDD,diverticulitis, vertigo, prior DVT, OA who presents as an OSH transfer for AFib with RVR complicated by hemodynamic instability. Electrophysiologyhas been consulted for Afib. Recently discharged from [facility] 02/06 after R radial fracture. Was in Afib RVR at this time as well and was started on sotalol 40 BID, limited by hypotension. Had an episode of dizziness 02/11 and found to be in Afib RVR. Received IV dilt and started on PO dilt with additional metoprolol. Found to have multifocal PNA on CXR and CT A/P with infiltrated IV with surrounding cellulitis of L arm. Bcx were positive for MRSA. Treated with doxy/flagyl/vanc/CTX. Underwent DCCV with initially successful conversion to NSR and went back into Afib RVR. Transferred to [facility] for additional workup. Review of Systems: Review of systems as per HPI and, otherwise all other systems are negative. PMHX: has a past medical history of Acid reflux, Heart murmur, High cholesterol, History of blood clots (), History of OR (myocardial infarction) (2012), History of vertebral fracture (2018), HTN (hypertension), IBS (irritable bowel syndrome), and Vertigo. PSHX: has a past surgical history that includes Coronary artery bypass graft (2012); Colon surgery (1992); microdiscectomy (1998); Total knee arthroplasty (Right, 2018); FL Fluoro Guided Injection Hip Right (Right, 05/16/2022); FL Fluoro Guided Injection Hip Right (Right, 08/15/2022); and FL Fluoro Guided Injection Hip Right (Right, 12/10/2022). Family Hx: family history includes Hypertension in her child; Prostate cancer in her father; Strokein her child. Social Hx: reports that she has never smoked. She has been exposed to tobacco smoke. She has never used smokeless tobacco. She reports current drug use. Drug: Medical marijuana. Patient denies consuming alcoholic drinks. Allergies: Allergies Allergen Reactions Codeine Hives and Shortness of breath Latex Itching Tramadol Nausea & Vomiting and Unknown Home Medications: HOME MEDICATIONS : acetaminophen (TYLENOL) 325 mg tablet alendronate (FOSAMAX) 70 mg tablet apixaban (Eliquis) 5 mg tablet aspirin 81 mg tablet atorvastatin (LIPITOR) 80 mg tablet calcium carbonate-vitamin D3 500 mg(1,250mg) -400 unit chewable tablet cannabidiol, CBD, (medical cannabis) each cholecalciferol (VITAMIN D-3) 1,000 unit tablet clopidogreL (PLAVIX) 75 mg tablet cyanocobalamin (Vitamin B-12) 1,[address] (VOLTAREN) 75 mg EC tablet docusate sodium (COLACE) 100 mg capsule ezetimibe (ZETIA) 10 mg tablet furosemide (LASIX) 40 mg tablet gabapentin (NEURONTIN) 100 mg capsule LINZESS 145 mcg capsule lisinopriL (PRINIVIL,ZESTRIL) 10 mg tablet metoprolol XL (TOPROL-XL) 25 mg extended release tablet multivitamin no.44-vit D3-K 1,000-800 unit-mcg capsule omeprazole (PriLOSEC) 20 mg capsule sertraline (ZOLOFT) 100 mg tablet Current Medications: atorvastatin, 80 mg, oral, Nightly calcium carbonate-vitamin D3, 1 tablet, oral, Daily clopidogreL, 75 mg, oral, Daily digoxin, 250 mcg, intravenous, Once ezetimibe, 10 mg, oral, Daily lidocaine, 2 patch, transdermal, Daily [Held by Provider] linaCLOtide, 145 mcg, oral, Before breakfast pantoprazole DR, 40 mg, oral, Daily sertraline, 50 mg, oral, Daily vancomycin, 15 mg/kg, intravenous, Once amiodarone, 1 mg/min, Last Rate: 1 mg/min (02/18/23 09) heparin, 0-33 Units/kg/hr, Last Rate: 14 Units/kg/hr (02/18/23 09) Objective Vital Signs: 24hr Min/Max: Temp Min: 36.9 ??C (98.5 ??F) Max: 37.5 ??C (99.5 ??F) Pulse Min: 124 Max: 155 BP Min: 116/78 Max: 149/85 Resp Min: 17 Max: 29 SpO2 Min: 94 % Max: 97 % Most Recent: Vitals: 02/18/23 0749 BP: Pulse: 124 Resp: 24 Temp: 36.9 ??C (98.5 ??F) SpO2: 97% Intake/Output: Intake/Output Summary (Last 24 hours) at 02/18/2023 1008 Last data filed at 02/18/2023 0900 Gross per 24 hour Intake 1013.76 ml Output 1145 ml Net -131.24 ml Physical Exam: General appearance: no acute distress HEENT: NCAT, MM, anicteric Lungs: CTAB, no w/r/r, non-labored Heart: tachycardic, irregular rhythm, S1, S2 normal, no murmur, rub or gallop. trace LE edema Abdomen: soft, NT/ND; bowel sounds normal Extremities: R forearm in ARABELLA wrap. L arm with warmth around prior infiltration site. warm and well-perfused, equal pulses Skin: warm and dry Neurologic: No abnormal movements, non-focal exam Psych: Normal mood and affect Lab/Radiology/Diagnostic Review: Labs: Recent Labs Lab Units 02/18/2342502/17/23 1743 HEMOGLOBIN g/dL 8.3* 8.2* HEMATOCRIT % 24.7* 25.9* WBC K/cumm 5.8 6.1 PLATELETS K/cumm 235 224 Recent Labs Lab Units 02/18/23 0426 02/17/23 1743 SODIUM mmol/L 139 139 POTASSIUM PLASMA mmol/L 3.8 4.2 CHLORIDE mmol/L 108 108 CO2 mmol/L 23 21* ANIONGAP mmol/L 8 10 BUN SERUM mg/dL 9 9 CREATININE mg/dL 0.83 0.89 CALCIUM mg/dL 8.0* 7.8* MAGNESIUM mg/dL 2.0 2.0 Recent Labs Lab Units 02/17/23 1743 ALBUMIN g/dL 2.9* ALK PHOS Units/L 116 AST Units/L 17 ALT Units/L 16 BILIRUBIN TOTAL mg/dL 0.3 Recent Labs Lab Units 02/18/23 0850 02/18/23 0225 02/17/23 1743 APTT sec 60* < > 45* INR -- -- 1.78* < > = values in this interval not displayed. Recent Labs Lab Units 02/18/23 0426 TSH mcIUnit/mL 2.14 Cultures: Lab Results Component Value Date MICROBIOLOGY Preliminary Report: No growth to date. 02/17/2023 MICROBIOLOGY Preliminary Report: No growth to date. 02/17/2023 I personally reviewed the Telemetry images with the following findings: Afib with RVR to 140s I personally reviewed the ECG images with the following findings: Afib with RVR TTE: Pending I personally reviewed the CXR images with the following findings: Small L pleural effusion, multiple pulmonary nodules present Assessment/Plan Tiera Lobato is a 77 y.o. female with a history of pAF, Apical variant HCM, CAD with OR in 2012 s/p CABG with LAWSON to LAD and SVG to OM, HTN, DDD,diverticulitis, vertigo, prior DVT, OA who presents as an OSH transfer for AFib with RVR complicated by hemodynamic instability. Electrophysiologyhas been consulted for Afib. #Paroxysmal Atrial Fibrillation with RVR #Apical HCM #CAD s/p OR 2012, s/p CABG w/ LAWSON to LAD, SVG to OM #MRSA bacteremia #Multifocal PNA #Recent R radial fracture Patient with recent stressors, with recent R radial fracture and MRSA bacteremia. CT C/A/P c/f septic emboli. RVR likely 2/2 underlying infection. - can continue IV amiodarone - continue AC (on heparin gtt) - can continue digoxin if needed for additional rate control. Would check digoxin level and monitorfor digoxin toxicity. - management of underlying MRSA/septic emboli as per primary team - can consider atrial fibrillation ablation as outpatient pending clinical course We appreciate the ability to be involved in this patient's care. If after 5PM or on weekends, please page the camp assistant diamond setter with any questions or concerns. Archie Mayo MD Public Affairs Manager 10:08 AM 02/18/23 Cosigned by Nick Lange MD PhD at 02/20/2023 8:48 PM CDT Associated attestation - Nick Lange MD PhD - 02/20/2023 8:48 PM CDT Attending Documentation I have seen and examined the patient on 02/18/2023. I agree with the findings and plan of care as documented in the resident's/fellow's note. and as discussed with the resident/fellow. Supplementary Attestation Today, I am treating the patient for atrial fibrillation which is in severe exacerbation, progression, or experiencing treatment side effects as evidenced by need for CCU therapy, rapid rate, as described in the note. Independently interpreted test ECG which shows atrial fibrillation. Nick Lange MD PhD 02/20/2023 8:42 PM documented in this encounter Nursing Notes * Nataliia Ramos RN - 03/21/2023 12:25 PM CDT DC orders received and processed. Telemetry and picc line dc'd. Report to be called to facility andawaiting ems to transfer. * Tanna Veliz RN - 03/11/2023 4:29 PM CDT Patient remains with nausea and not feeling well. Patient dizzy. Refused daily orthostatics. Dr. Baker aware. * Caitlin Melendez RN - 02/25/2023 2:20 PM CDT Pt s/p HOOD/DCCV. Pt is A&Ox4, VS stable. Pt is returning to [facility], report called to PHILIP Haas. IVFs stopped, not needed post procedure. Pt transported via bed with RN on monitor with transporter. * Felicia Parson RN - 02/25/2023 6:30 AM CDT I assumed care of this patient at 2300. VSS, sleeping comfortably. No complaints of pain. No fevers. Voided x1. Rate controlled afib. Plan for HOOD today. documented in this encounter Miscellaneous Notes * ECIN Note - Baylee Burkett RN - 03/21/2023 1:32 PM CDT Images from the original note were not included. COVID-19 Coronavirus RNA Nasopharyngeal Order: [id number] Collected 03/21/2023 10:28 Status: Final result Visible to patient: Yes (not seen) Specimen Information: Nasopharyngeal 0 Result Notes Component Ref Range & Units COVID-19 RNA Negative Negative Resulting Agency [facility] Narrative Performed by: [facility] Is the patient experiencing any symptoms consistent with COVID (eg. Fever, cough, shortness of breath)?->No What is the reason for testing?->Placement in post-acute care setting (Rapid) Interpretive data: Synonyms for this test include: PCR and NAAT . This test is performed using the [employer] Xpert Xpress plus assay. This is a real-time RT-PCR test intended for the qualitative detection of nucleic acid from the SARS-CoV-2. This assay has been reviewed by the FDA for Emergency Use Authorization (EUA). The performance characteristics have been verified by the performing laboratory. Results must be considered in the clinical context and a negative result does not rule out infection. Interpretive data last revised November 14, 2021. Specimen Collected: 03/21/23 10:28 Last Resulted: 03/21/23 12:54 Order Details View Encounter Lab and Collection Details Routing Result History View All Conversations on this Encounter Result Care Coordination Patient Communication Add Comments Add Notifications Back to Top Accession# [id number] Lab Component SmartPhrase Guide COVID-19 Coronavirus RNA Nasopharyngeal (Order #[id number]) on 03/21/23 Other Results from 02/17/2023 Basic metabolic panel Final result 03/20/2023 CBC without differential Final result 03/20/2023 Magnesium Final result 03/20/2023 eGFR Final result 03/20/2023 Magnesium Final result 03/19/2023 Basic metabolic panel Final result 03/19/2023 CBC without differential Final result 03/19/2023 eGFR Final result 03/19/2023 Magnesium Final result 03/18/2023 Basic metabolic panel Final result 03/18/2023 CBC without differential Final result 03/18/2023 eGFR Final result 03/18/2023 Magnesium Final result 03/17/2023 Basic metabolic panel Final result 03/17/2023 CBC without differential Final result 03/17/2023 eGFR Final result 03/17/2023 Immunotyping, serum Final result 03/17/2023 Immunoglobulin free light chains Final result 03/17/2023 Urinalysis reflex to microscopic Final result 03/17/2023 Protein / creatinine ratio, urine, random Final result 03/17/2023 important suggestion Warning: Additional results from 02/17/2023 are available but are not displayed in this report. * Plan of Care - Nataliia Ramos RN - 03/21/2023 9:56 AM CDT Goals: Clinical Goals for the Shift: Stable VS, free of falls Summary: Pt verbalized understanding and is participating in plan. Will continue to monitor. Problem: Health Behavior: Goal: Understanding of discharge needs will improve Outcome: Progressing * Plan of Care - Cici Uribe RN - 03/21/2023 12:16 AM CDT Goals: Clinical Goals for the Shift: Stable VS, free of falls Problem: Health Behavior: Goal: Understanding of discharge needs will improve Outcome: Progressing Problem: Lack of Knowledge: Goal: Ability to state ways to decrease the risk of falls will improve Outcome: Progressing Problem: Safety: Goal: Will remain free from falls Outcome: Progressing Goal: Will remain free from injury from falls Outcome: Progressing Goal: Will remain free from falls and injury in home environment Outcome: Progressing Problem: Activity: Goal: Mobility will improve Outcome: Progressing Problem: Lack of Knowledge: Goal: Understanding of ways to prevent future skin breakdown will improve Outcome: Progressing Goal: Ability to identify appropriate dietary choices will improve Outcome: Progressing Problem: Nutritional: Goal: Dietary intake will improve Outcome: Progressing Goal: Ability to maintain a balanced intake and output will improve Outcome: Progressing Problem: Skin Integrity: Goal: Risk for impaired skin integrity will decrease Outcome: Progressing Goal: Ability to demonstrate warm and dry skin will improve Outcome: Progressing Goal: Circulation will improve to fullest extent possible Outcome: Progressing Problem: Cardiac: Goal: Ability to maintain an adequate cardiac output will improve Outcome: Progressing Goal: Hemodynamic stability will improve Outcome: Progressing Problem: Lack of Knowledge: Goal: Ability to state signs and symptoms to report to health care provider will improve Outcome: Progressing Goal: Knowledge of the prescribed therapeutic regimen will improve Outcome: Progressing Goal: Mental status will improve Outcome: Progressing Problem: Lack of Knowledge: Goal: Ability to develop a pain control plan will improve Outcome: Progressing Goal: Ability to identify pain intensity on a pain scale and rate it consistently will improve Outcome: Progressing Goal: Ability to notify healthcare provider of pain before it becomes unmanageable or unbearable will improve Outcome: Progressing Problem: Medication: Goal: Satisfaction with pain management regimen will improve Outcome: Progressing Problem: Sensory: Goal: Ability to identify factors that increase the pain will improve Outcome: Progressing Goal: Pain level will decrease Outcome: Progressing Problem: Activity: Goal: Ability to return to normal activity level will improve Outcome: Progressing Problem: Lack of Knowledge: Goal: Knowledge of the prescribed therapeutic regimen will improve Outcome: Progressing Problem: Coping: Goal: Ability to cope will improve Outcome: Progressing Problem: Health Behavior: Goal: Identification of resources available to assist in meeting health care needs will improve Outcome: Progressing Problem: Sensory: Goal: Pain level will decrease Outcome: Progressing Problem: Activity: Goal: Ability to tolerate increased activity will improve Outcome: Progressing Goal: Ability to participate in self-care as condition permits will improve Outcome: Progressing Problem: Cardiac: Goal: Ability to maintain an adequate cardiac output will improve Outcome: Progressing Goal: Will show no evidence of cardiac arrhythmias Outcome: Progressing Goal: Complications related to the disease process, condition or treatment will be avoided or minimized Outcome: Progressing Problem: Lack of Knowledge: Goal: Knowledge of disease or condition will improve Outcome: Progressing Goal: Knowledge of the prescribed therapeutic regimen will improve Outcome: Progressing Goal: Ability to identify and utilize available resources and services will improve Outcome: Progressing Problem: Coping: Goal: Level of anxiety will decrease Outcome: Progressing Problem: Safety: Goal: Ability to remain free from injury will improve Outcome: Progressing Goal: Will show no signs and symptoms of excessive bleeding Outcome: Progressing Summary: Patient verbalized understanding of care plan and is participating in care. Vital signs stable. Patient denies any further needs at this time. * ECIN Note - Baylee Burkett RN - 03/20/2023 12:02 PM CDT Images from the original note were not included. Patient Information: OT Eval and Treat Last 72 Hours OT Evaluation No documentation. OT Treatment Row Name 03/17/23 1413 03/13/23 1305 Session Type Treatment -MS Treatment -JR OT Received On 03/17/23 -MS 03/13/23 -JR Safe Environment Arm band checked;Patient found in supine;Gait belt utilized for all out of bed mobility -MS Arm band checked;Patient found in supine -JR Subjective Agreeable to Therapy -MS Agreeable to Therapy -JR Family/Caregiver Present No -MS No -JR OT Functional Mobility Functional mobility NT 2/2 dizziness. Vital signs WNL. - MS -- Precautions Fall risk -MS Fall risk -JR Weight Bearing Restrictions Yes -MS Yes -JR RUE Weight Bearing NWB -MS NWB -JR Precaution Handout Issued No -MS -- Precaution Comments Verbally reviewed precautions with patient prior to mobility. Patient demonstrated adherence to precautions throughout session. -MS -- Pain Assessment No/denies pain -MS No/denies pain -JR Pain Score 0 - No pain -MS -- Balance Yes -MS Yes -JR Static Sitting-Balance Support Unilateral upper extremity supported;Feet supported unilateral UE supported on bed -MS -- Static Sitting-Sitting Surface Bed -MS -- Static Sitting-Level of Assistance Close supervision -MS -- Static Sitting-Comment/# of Minutes Ensure safety and balance -MS -- Dynamic Sitting-Balance Support Unilateral upper extremity supported;Feet supported unilateral UE supported on bed -MS No upper extremity supported;Feet supported -JR Dynamic Sitting-Balance Lateral lean;Forward lean;Reaching for objects -MS Forward lean;Reaching for objects -JR Dynamic Sitting-Sitting Surface Bed -MS Bed -JR Dynamic Sitting-Level of Assistance Close supervision -MS Close supervision -JR Dynamic Sitting-Comments Ensure safety and balance -MS -- Static Standing-Balance Support Left upper extremity supported on bed rail -MS Bilateral upper extremity supported -JR Static Standing-Standing Surface Floor -MS Floor -JR Static Standing-Level of Assistance Contact guard -MS Minimum assistance -JR Static Standing-Comment/# of Minutes Ensure safety and balance -MS -- Dynamic Standing-Balance Support Left upper extremity supported on therapist -MS -- Dynamic Standing-Balance Lateral lean;Forward lean;Reaching for objects -MS -- Dynamic Standing-Standing Surface Floor -MS -- Dynamic Standing-Level of Assistance Minimum assistance -MS -- ADLS (WDL) X -MS -- NT this date -JR Grooming: Where assessed Chair -MS -- Grooming: Level of assistance Moderate Assist -MS -- Grooming: Assistance with Safety;Other (Comment) balance -MS -- LE Dressing: Where assessed Chair -MS -- LE Dressing: Level of assistance Moderate Assist -MS -- LE Dressing: Assistance with Don/doff R sock;Thread RLE into pants;Pull up over hips;Safety;Other (Comment) balance -MS -- Bed Mobility Yes -MS Yes -JR Bed Mobility From 1 Supine -MS Supine -JR Bed Mobility Type 1 To -MS To and from -JR Bed Mobility to 1 Edge of bed -MS Rolling right;Rolling left -JR Level of Assistance 1 Minimum Assist -MS Minimum Assist -JR Bed Mobility Comments 1 Trunk elevation -MS Rotation of trunk -JR Bed Mobility From 2 -- Supine -JR Bed Mobility Type 2 -- To and from -JR Bed Mobility to 2 -- Edge of Bed -JR Level of Assistance 2 -- Moderate Assist -JR Bed Mobility Comments 2 -- Elevation of trunk, scooting hips towards EOB -JR Transfer Yes -MS Yes -JR Transfer From 1 Sit -MS Sit -JR Transfer Type 1 To and from -MS To and from -JR Transfer to 1 Stand -MS Stand -JR Technique 1 Sit to stand;Stand to sit -MS Sit to stand;Stand to sit -JR Transfer Device 1 Hand held assist -MS Hand held assist -JR Transfer Level of Assistance 1 Minimum Assist -MS Minimum Assist -JR Trials/Comments 1 Force production and balance -MS Force production, balance -JR Trials/Comments 2 -- Functional mobility NT 2/2 safety concerns. -JR Toilet Transfer From Bed -MS -- Toilet Transfer Type To -MS -- Toilet Transfer to -- Chair sim -MS -- Toilet Transfer Technique -- stand and step -MS -- Toilet Transfer: Equipment Hand hold -MS -- Toilet Transfers Minimal assistance -MS Not tested 2/2 safety concerns -JR Toilet Transfers Comments Force production and balance -MS -- Arousal/Alertness Alert;Appropriate responses to stimuli -MS Alert;Appropriate responses to stimuli-JR Attention Span Appears intact -MS Appears intact -JR Current communication Appears Intact -MS -- Orientation Oriented X4 (person, place, time, situation) -MS Oriented X4 (person, place, time, situation) -JR Following Commands Follows all commands and directions without difficulty -MS Follows all commands and directions without difficulty -JR Safety Judgment Good awareness of safety precautions -MS Good awareness of safety precautions -JR Awareness of Errors Assistance required to identify errors made -MS -- Insight Decreased awareness of deficits -MS -- Problem Solving Assistance required to identify errors made -MS -- Compliance/Behavior Easy to engage -MS Easy to engage -JR Perseveration Not present -MS -- Activity Tolerance Comments isaak: medium, LBD -MS -- Comments Session limited this date due to dizziness. Vitals taken in supine and sitting and all were WNL. Once dizziness resolved at EOB we transfered to the chair but in standing patient became dizzy with vitals WNL. -MS Session focused on functional transfers d/t unstable BP. Pt dizzy with all positional changes, no resolving in sitting only when supine. SBP from 150 to 113 in standing. No further OOB activity performed d/t orthostatic BP. -JR Putting on and taking off regular lower body clothing 2 -MS 2 -JR Bathing 2 -MS 2 -JR Toileting 2 -MS 2 -JR Putting on and taking off upper body clothing 3 -MS 3 -JR Personal Grooming 2 -MS 2 -JR Eating Meals 3 -MS 3 -JR Total Score (range 6-24) 14 -MS 14 -JR Score Interpretation 33.39 -MS 33.39 -JR Safe Environment End of Therapy Session Patient left in recliner;Call light within reach;Overbed table within reach -MS Patient left supine in bed;RN notified;Call light within reach;Overbed table within reach -JR Problem List Decreased safe judgment during ADL;Decreased endurance;Decreased balance;Decreased functional mobility;Decreased ADL independence;Decreased IADL independence -MS Decreased endurance;Decreased balance;Decreased functional mobility;Decreased ADL independence;Decreased IADL independence -JR Barriers to Discharge Current Mobility Status -MS Current Mobility Status -JR Barrier Comments Fall risk -MS -- Plan Continue with current plan;If this is the last note, consider this the discharge summary -MS Continue with current plan;If this is the last note, consider this the discharge summary -JR OT Recommendation Inpatient Rehab Facility -MS Inpatient Rehab Facility -JR Patient at high risk for Falls;Readmission;Injury due to decreased ability to care for self;Injury due to reduced functional status;Injury due to balance deficits;Injury at home as patient has not returned to prior level of function - MS Falls;Readmission;Injury due to decreased ability to care for self;Injury due to reduced functional status;Injury due to balance deficits;Injury at home as patient has not returned to prior level of function;Developing impaired skin integrity -JR Recommend Inpatient Rehab/Acute Rehab due to Ability to actively participate in intensive therapy 3hours/day, 5 days/week or 900 minutes per week;Highly motivated to participate in therapy;Not at baseline due to impaired ability to complete ADLs;Impaired ability to complete functional mobility;Likely to return to the community at discharge with support system in place;Requires greater than 25% physical assistance with most mobility tasks;Requires greater than 25% physical assistance with most ADL tasks;Requires multiple therapy disciplines to address functional deficits -MS Requires multipletherapy disciplines to address functional deficits;Requires greater than 25% physical assistance with most ADL tasks;Requires greater than 25% physical assistance with most mobility tasks;Likely to return to the community at discharge with support system in place;Impaired ability to complete functional mobility;Not at baseline due to impaired ability to complete ADLs;Highly motivated to participate in therapy;Ability to actively participate in intensive therapy 3 hours/day, 5 days/week or 900 minutes per week -JR OT Frequency during current admission 3-5x/wk -MS 3-5x/wk -JR Treatment/Interventions during current admission ADL/IADL retraining;Balance Training;Bed mobility;Compensatory technique education;Endurance training;Functional activity;Functional mobility training;Functional transfer training;Strengthening;Therapeutic activity;Therapeutic exercise;Transfer traini ng -MS ADL/IADL retraining;Balance Training;Bed mobility;Endurance training;Functional activity;Functional mobility training;Functional transfer training;Therapeutic activity;Therapeutic exercise;Strengthening;Transfer training -JR Progress during current admission Slow progress, medical status limitations -MS Slow progress, medical status limitations -JR OT - Next Appointment 03/19/23 -MS 03/17/23 - User Martinez (r) = Recorded By, (t) = Taken By, (c) = Cosigned By Initials Name Effective Dates JR Sami Moreau, OT 01/23/23 - MS Archie Ann, OT 09/30/22 - OT Notes Notes from 03/18/23 through 03/20/23 No notes of this type exist for this encounter. , PT Eval and Treat Last 72 Hours PT Evaluation No documentation. PT TREATMENT (last 168 hours) PT Treatment Row Name 03/20/23 1008 03/18/23 0947 03/14/23 0859 PT Last Visit Session Type Treatment -KR Treatment -AR Treatment -TN Safe Environment Arm band checked;Patient found sitting in chair;Gait belt utilized for all out of bed mobility -KR Arm band checked;Patient found in supine;Gait belt utilized for all out of bed mobility -AR Arm band checked;Patient found in supine;Gait belt utilized for all out of bed mobility -TN Subjective Agreeable to Therapy -KR Agreeable to Therapy -AR Agreeable to Therapy -TN Subjective Comment -- I feel okay -AR I'm still a little dizzy -TN Family/Caregiver Present No -KR No -AR No -TN Current Functional Status PT Functional Mobility Functional mobility and gait training -KR -- -- Precautions Precautions Fall risk -KR Fall risk -AR Fall risk -TN Weight Bearing Restrictions Yes -KR -- -- RUE Weight Bearing NWB -KR NWB -AR NWB -TN Precaution Comments Pt OK for WB throught the elbow -KR -- verbally reviewed precautions for RUE -TN Activity Tolerance Activity Tolerance Comments Isaak: hard during ambulation -KR ISAAK: Hard -AR -- Pain Assessment Pain Assessment 0-10 -KR No/denies pain -AR No/denies pain -TN Pain Score 4 -KR -- -- Patient's Stated Pain Goal No pain -KR -- -- Pain Type Acute pain -KR -- -- Pain Location Leg -KR -- -- Pain Orientation Right -KR -- -- Pain Descriptors Aching -KR -- -- Pain Frequency Intermittent -KR -- -- Pain Interventions Medication (See MAR) -KR -- -- Response to Interventions Partial pain relief -KR -- -- Cognition Overall Cognitive Status WFL -KR -- -- Arousal/Alertness Alert;Appropriate responses to stimuli -KR Alert;Appropriate responses to stimuli-AR -- Attention Span Appears intact -KR -- -- Memory Appears intact -KR -- -- Current communication Appears Intact -KR -- -- Orientation Oriented X4 (person, place, time, situation) -KR Oriented X4 (person, place, time, situation) -AR Oriented X4 (person, place, time, situation) -TN Following Commands Follows all commands and directions without difficulty -KR Follows all commands and directions without difficulty -AR -- Safety Judgment Good awareness of safety precautions -KR -- -- Awareness of Errors Good awareness of errors made -KR -- -- Insight Fully aware of deficits -KR -- -- Problem Solving Able to problem solve independently -KR -- -- Compliance/Behavior Easy to engage -KR Easy to engage -AR -- Perseveration Not present -KR -- -- Balance Balance Yes -KR Yes -AR -- Static Sitting Balance Static Sitting-Balance Support Feet supported -KR Feet supported;No upper extremity supported -AR Bilateral upper extremity supported;Feet supported -TN Static Sitting-Sitting Surface Chair -KR Bed -AR Bed -TN Static Sitting-Level of Assistance Independent -KR Close supervision -AR Contact guard -TN Static Sitting-Comment/# of Minutes -- sup for safety -AR contact guard to independent depending onlevel of dizziness and OH -TN Dynamic Sitting Balance Dynamic Sitting-Balance Support Feet supported -KR -- -- Dynamic Sitting-Balance Forward lean;Reaching for objects -KR -- -- Dynamic Sitting-Sitting Surface Chair -KR -- -- Dynamic Sitting-Level of Assistance Distant supervision -KR -- -- Dynamic Sitting-Comments for safety -KR -- -- Static Standing Balance Static Standing-Balance Support Bilateral upper extremity supported -KR Bilateral upper extremity supported -AR Left upper extremity supported -TN Static Standing-Standing Surface Floor -KR Floor -AR Floor -TN Static Standing-Level of Assistance Contact guard -KR Minimum assistance -AR Contact guard -TN Static Standing-Comment/# of Minutes cga for safety -KR Min A for balance -AR contact guard for balance -TN Seated Seated-Exercise Comments -- Educated on LE ROM at EOB to promote blood flow and prevent orthostasiswith standing -AR -- Bed Mobility Bed Mobility -- Yes -AR Yes -TN Bed Mobility 1 Bed Mobility From 1 -- Supine -AR Supine -TN Bed Mobility Type 1 -- To -AR To -TN Bed Mobility to 1 -- Edge of bed -AR Edge of bed -TN Level of Assistance 1 -- Standby Assist -AR Minimum Assist -TN Bed Mobility Comments 1 -- SBA for safety and cues for precautions -AR min assist for lifting the trunk into sitting. Pt lightheaded during transfers -TN Transfers Transfer -- Yes -AR Yes -TN Transfer 1 Transfer From 1 -- Sit -AR Sit -TN Transfer Type 1 -- To and from -AR To and from -TN Transfer to 1 -- Stand -AR Stand -TN Technique 1 -- Sit to stand;Stand to sit -AR Sit to stand;Stand to sit -TN Transfer Device 1 -- Hand held assist -AR Hand held assist -TN Transfer Level of Assistance 1 -- Minimum Assist -AR Minimum Assist -TN Trials/Comments 1 -- Min A for force production -AR min assist for force production and balance -TN Transfers 2 Transfer From 2 -- Bed -AR -- Transfer Type 2 -- To -AR -- Transfer to 2 -- Chair with arms -AR -- Technique 2 -- Stand and step -AR -- Transfer Device 2 -- Hand held assist -AR -- Transfer Level of Assistance 2 -- Minimum Assist -AR -- Trials/Comments 2 -- Min A for balance -AR -- Ambulation Ambulation -- Yes -AR Yes -TN Ambulation 1 Distance (ft) 1 -- 180 -AR 25 -TN Surface 1 -- Level tile -AR Level tile -TN Device 1 -- Wheeled walker;Platform attachment right -AR Hand held assist -TN Assistance 1 -- Contact Guard Assist -AR Minimum Assist -TN Gait: Requires assist with 1 -- Maintaining balance -AR Maintaining balance -TN Gait: Requires verbal cues to 1 -- Pace activity;Utilize pursed lip breathing - AR -- Gait Deviations 1 -- Roma - decreased;Step length - decreased -AR Path deviation;Turns - difficulty;Shuffling -TN Ambulation Comments 1 -- no rest needed; CGA for balance -AR Pt requried contact guard to min assist for balance during ambulation. Only ambulated in the room -TN Stairs Stairs -- No -AR No -TN Other Comments Other PT Comments -- Pt. tolerates session well without significant dizziness. However, Per RN, HR up to 170s with ambulation. -AR Pt presents with intermittent dizziness throughout session with subsequent drop in BP. Please see vitals flowsheet for additional details -TN Basic Mobility - 6 Click How much difficulty does the patient have: Turning over in bed -- 3 -AR 4 -TN How much difficulty does the patient currently have: Sitting down and standing up from a chair witharms? -- 3 -AR 3 -TN How much difficulty does the patient have: Moving from lying on back to sitting on the side of the bed? -- 3 -AR 3 -TN How much difficulty does the patient have: Moving to and from a bed to a chair including wheelchair? -- 3 -AR 3 -TN How much help does the patient currently need: Walk in hospital room? -- 3 -AR 3 -TN How much help from another person does the patient currently need: Climbing 3-5 steps with a railing? -- 2 -AR 2 -TN Total 6 Click Score (range 6-24) -- 17 -AR 18 -TN Score Interpretation -- 39.67 -AR 41.05 -TN Safe Environment End of Therapy Session Safe Environment End of Therapy Session -- Patient left in chair;RN notified;Call light within reach -AR Patient left in recliner;RN notified;Call light within reach;Overbed table within reach -TN Assessment Prognosis -- Good -AR Good -TN Problem List -- Gait deviations;Decreased strength;Decreased endurance;Impaired balance -AR -- Barriers to Discharge -- -- Current Mobility Status decreased activity tolerance, OH -TN Plan Plan -- Continue with current plan;If this is the last note, consider this the discharge summary -AR Continue with current plan;If this is the last note, consider this the discharge summary -TN Recommendation/Plan PT Recommendation/Plan -- Inpatient Rehab Facility -AR -- PT Frequency during current admission -- 3-5x/wk -AR -- Treatment/Interventions during current admission -- Balance Training;Bed mobility;Gait training;Functional transfer training;Endurance training -AR -- Progress during current admission -- -- Progressing toward goals -TN PT - OK to Discharge -- -- No -TN User Martinez (r) = Recorded By, (t) = Taken By, (c) = Cosigned By Initials Name Effective Dates AR Suki Francisco DPT 03/17/23 - KR Nelia Walter, PT 02/03/23 - Mariam Laboy, PT 02/03/23 - PT Notes 03/18/2023 3:58 PM Progress Notes signed by Suki Francisco DPT * Plan of Care - Nataliia Ramos RN - 03/20/2023 10:07 AM CDT Goals: Clinical Goals for the Shift: Stable VS, free of falls Summary: Pt verbalized understanding and is participating in plan. Will continue to monitor. Problem: Health Behavior: Goal: Understanding of discharge needs will improve Outcome: Progressing * Plan of Care - Cici Uribe RN - 03/19/2023 11:13 PM CDT Goals: Clinical Goals for the Shift: Stable VS, free of falls Problem: Health Behavior: Goal: Understanding of discharge needs will improve Outcome: Progressing Problem: Lack of Knowledge: Goal: Ability to state ways to decrease the risk of falls will improve Outcome: Progressing Problem: Safety: Goal: Will remain free from falls Outcome: Progressing Goal: Will remain free from injury from falls Outcome: Progressing Goal: Will remain free from falls and injury in home environment Outcome: Progressing Problem: Activity: Goal: Mobility will improve Outcome: Progressing Problem: Lack of Knowledge: Goal: Understanding of ways to prevent future skin breakdown will improve Outcome: Progressing Goal: Ability to identify appropriate dietary choices will improve Outcome: Progressing Problem: Nutritional: Goal: Dietary intake will improve Outcome: Progressing Goal: Ability to maintain a balanced intake and output will improve Outcome: Progressing Problem: Skin Integrity: Goal: Risk for impaired skin integrity will decrease Outcome: Progressing Goal: Ability to demonstrate warm and dry skin will improve Outcome: Progressing Goal: Circulation will improve to fullest extent possible Outcome: Progressing Problem: Cardiac: Goal: Ability to maintain an adequate cardiac output will improve Outcome: Progressing Goal: Hemodynamic stability will improve Outcome: Progressing Problem: Lack of Knowledge: Goal: Ability to state signs and symptoms to report to health care provider will improve Outcome: Progressing Goal: Knowledge of the prescribed therapeutic regimen will improve Outcome: Progressing Goal: Mental status will improve Outcome: Progressing Problem: Lack of Knowledge: Goal: Ability to develop a pain control plan will improve Outcome: Progressing Goal: Ability to identify pain intensity on a pain scale and rate it consistently will improve Outcome: Progressing Goal: Ability to notify healthcare provider of pain before it becomes unmanageable or unbearable will improve Outcome: Progressing Problem: Medication: Goal: Satisfaction with pain management regimen will improve Outcome: Progressing Problem: Sensory: Goal: Ability to identify factors that increase the pain will improve Outcome: Progressing Goal: Pain level will decrease Outcome: Progressing Problem: Activity: Goal: Ability to return to normal activity level will improve Outcome: Progressing Problem: Lack of Knowledge: Goal: Knowledge of the prescribed therapeutic regimen will improve Outcome: Progressing Problem: Coping: Goal: Ability to cope will improve Outcome: Progressing Problem: Health Behavior: Goal: Identification of resources available to assist in meeting health care needs will improve Outcome: Progressing Problem: Sensory: Goal: Pain level will decrease Outcome: Progressing Problem: Activity: Goal: Ability to tolerate increased activity will improve Outcome: Progressing Goal: Ability to participate in self-care as condition permits will improve Outcome: Progressing Problem: Cardiac: Goal: Ability to maintain an adequate cardiac output will improve Outcome: Progressing Goal: Will show no evidence of cardiac arrhythmias Outcome: Progressing Goal: Complications related to the disease process, condition or treatment will be avoided or minimized Outcome: Progressing Problem: Lack of Knowledge: Goal: Knowledge of disease or condition will improve Outcome: Progressing Goal: Knowledge of the prescribed therapeutic regimen will improve Outcome: Progressing Goal: Ability to identify and utilize available resources and services will improve Outcome: Progressing Problem: Coping: Goal: Level of anxiety will decrease Outcome: Progressing Problem: Safety: Goal: Ability to remain free from injury will improve Outcome: Progressing Goal: Will show no signs and symptoms of excessive bleeding Outcome: Progressing Summary: Patient verbalized understanding of care plan and is participating in care. Vital signs stable. Patient denies any further needs at this time. * [facility] Note - Baylee Burkett RN - 03/19/2023 1:24 PM CDT Patient Information: Meds and Admin Active Only All Meds/Most Recent Administrations atorvastatin (LIPITOR) tablet 80 mg [[id number]] Ordering Provider: Ritika Serrano MD Status: Dispensed Ordered On: 02/17/231724 Start: 02/17/23 2100 Ordered Dose (Remaining/Total): 80 mg (--/--) Route: oral Frequency: Nightly Ordered Rate/Order Duration: -- / -- Admin Instructions: at bedtime. Timestamps Action Dose Route Other Information 03/18/235 Given 80 mg oral Performed by: Yaa Lara RN Scanned Package: [address]-8 calcium carbonate-vitamin D3 1,250mg (500mg elemental) - 5 mcg (200 units) per tablet 1 tablet [[id number]] Ordering Provider: Ritika Serrano MD Status: Dispensed Ordered On: 02/17/231724 Start: 02/17/23 1800 Ordered Dose (Remaining/Total): 1 tablet (--/--) Route: oral Frequency: Daily Ordered Rate/Order Duration: -- / -- Timestamps Action Dose Route Other Information 03/19/23 0835 Given 1 tablet oral Performed by: Scotty Cain RN Scanned Package: [id number] clopidogreL (PLAVIX) tablet 75 mg [[id number]] Ordering Provider: Ritika Serrano MD Status: Dispensed Ordered On: 02/17/231724 Start: 02/17/231799 Ordered Dose (Remaining/Total): 75 mg (--/--) Route: oral Frequency: Daily Ordered Rate/Order Duration: -- / -- Timestamps Action Dose Route Other Information 03/19/2336 Given 75 mg oral Performed by: Scotty Cain RN Scanned Package: 12356-320-03 ezetimibe (ZETIA) tablet 10 mg [[id number]] Ordering Provider: Ritika Serrano MD Status: Dispensed Ordered On: 02/17/231724 Start: 02/17/231799 Ordered Dose (Remaining/Total): 10 mg (--/--) Route: oral Frequency: Daily Ordered Rate/Order Duration: -- / -- Timestamps Action Dose Route Other Information 03/19/23834 Given 10 mg oral Performed by: Scotty Cain RN Scanned Package: [id number] sertraline (ZOLOFT) tablet 50 mg [[id number]] Ordering Provider: Ritika Serrano MD Status: Dispensed Ordered On: 02/17/231724 Start: 02/17/231799 Ordered Dose (Remaining/Total): 50 mg (--/--) Route: oral Frequency: Daily Ordered Rate/Order Duration: -- / -- Timestamps Action Dose Route Other Information 03/19/23835 Given 50 mg oral Performed by: Scotty Cain RN Scanned Package: [id number] heparin 1,000 unit/mL injection 5,000 Units [[id number]] Ordering Provider: Olimpia Long MD Status: Completed (Past End Date/Time) Ordered On: 02/17/231724 Starts/Ends: 02/17/231799 - 02/17/231954 Ordered Dose (Remaining/Total): 60 Units/kg (0/1) Route: intravenous Frequency: Once Ordered Rate/Order Duration: -- / -- Admin Instructions: Initial bolus prior to starting heparin infusion. Do not adjust initial bolus based on patient PTT. Timestamps Action Dose Route Other Information 02/17/231954 Given 5,000 Units intravenous Performed by: Mike Florez RN Dual Signoff by: Aleksey Tracey RN Scanned Package: [id number] vancomycin 1,250 mg/262.5 mL in sodium chloride 0.9% (premix) 1,250 mg [[id number]] Ordering Provider: Olimpia Long MD Status: Completed (Past End Date/Time) Ordered On: 02/17/231750 Starts/Ends: 02/17/231829 - 02/17/232000 Ordered Dose (Remaining/Total): 15 mg/kg (0/1) Route: intravenous Frequency: Once Ordered Rate/Order Duration: -- / 60 Minutes Timestamps Action Dose / Duration Route Other Information 02/17/231900 New Bag 1,250 mg 60 Minutes intravenous Performed by: Yessica Camejo RN linaCLOtide (LINZESS) capsule 145 mcg [[id number]] Ordering Provider: Ritika Serrano MD Status: Dispensed Ordered On: 02/17/231833 Start: 02/18/23729 Ordered Dose (Remaining/Total): 145 mcg (--/--) Route: oral Frequency: Daily before breakfast Ordered Rate/Order Duration: -- / -- Admin Instructions: Do not crush - May open and disperse in water 30 mL, swirl for at least 20 seconds. Administer immediately. Repeat process if any beads remain behind. Flush. Do not chew the beads. Timestamps Action Dose Route Other Information 03/18/23923 Given 145 mcg oral Performed by: Scotty Cain RN ondansetron (ZOFRAN) injection 4 mg [[id number]] Ordering Provider: Aleksey Mendez MD Status: Completed (Past End Date/Time) Ordered On: 02/17/231927 Starts/Ends: 02/17/231999 - 02/17/231948 Ordered Dose (Remaining/Total): 4 mg (0/1) Route: intravenous Frequency: Once Ordered Rate/Order Duration: -- / 2 Minutes Timestamps Action Dose / Duration Route Other Information 02/17/231946 Given 4 mg 2 Minutes intravenous Performed by: Mike Florez RN Scanned Package: [address]-[address] (PROTONIX) extended release tablet 40 mg [[id number]] Ordering Provider: Ritika Serrano MD Status: Dispensed Ordered On: 02/17/231938 Start: 02/17/232014 Ordered Dose (Remaining/Total): 40 mg (--/--) Route: oral Frequency: Daily Ordered Rate/Order Duration: -- / -- Admin Instructions: Do not crush, chew, cut, dissolve, open or otherwise manipulate tablet/capsule. Timestamps Action Dose Route Other Information 03/19/2336 Given 40 mg oral Performed by: Scotty Cain RN Scanned Package: [id number] digoxin (LANOXIN) injection 250 mcg [[id number]] Ordering Provider: Aleksey Mendez MD Status: Completed (Past End Date/Time) Ordered On: 02/17/232112 Starts/Ends: 02/17/232144 - 02/17/232147 Ordered Dose (Remaining/Total): 250 mcg (0/1) Route: intravenous Frequency: Once Ordered Rate/Order Duration: -- / 5 Minutes Timestamps Action Dose / Duration Route Other Information 02/17/232142 Given 250 mcg 5 Minutes intravenous Performed by: Mike Florez RN Scanned Package: [id number] digoxin (LANOXIN) injection 250 mcg [[id number]] Ordering Provider: Aleksey Mendez MD Status: Completed (Past End Date/Time) Ordered On: 02/18/23 014 Starts/Ends: 02/18/23 023 - 02/18/23 023 Ordered Dose (Remaining/Total): 250 mcg (0/1) Route: intravenous Frequency: Once Ordered Rate/Order Duration: -- / 5 Minutes Timestamps Action Dose / Duration Route Other Information 02/18/23 0226 Given 250 mcg 5 Minutes intravenous Performed by: Mike Florez RN Scanned Package: [id number] digoxin (LANOXIN) injection 250 mcg [[id number]] Ordering Provider: Olimpia Long MD Status: Completed (Past End Date/Time) Ordered On: 09/05/23 0640 Starts/Ends: 02/18/23 0645 - 02/18/23 0656 Ordered Dose (Remaining/Total): 250 mcg (0/1) Route: intravenous Frequency: Once Ordered Rate/Order Duration: -- / 5 Minutes Timestamps Action Dose / Duration Route Other Information 02/18/23 0651 Given 250 mcg 5 Minutes intravenous Performed by: Mike Florez RN Scanned Package: [id number] potassium chloride 20 mEq/50 mL in sterile water (premix) 20 mEq [[id number]] Ordering Provider: Olimpia Long MD Status: Completed (Past End Date/Time) Ordered On: 02/18/23 0733 Starts/Ends: 02/18/23 0815 - 02/18/23 0954 Ordered Dose (Remaining/Total): 20 mEq (0/1) Route: intravenous Frequency: Once Ordered Rate/Order Duration: 25 mL/hr / 2 Hours Admin Instructions: Central line only Timestamps Action Rate Route Other Information 02/18/23 0900 Rate/Dose Verify 25 mL/hr intravenous Performed by: Kel Issa RN digoxin (LANOXIN) injection 250 mcg [[id number]] Ordering Provider: Olimpia Long MD Status: Completed (Past End Date/Time) Ordered On: 02/18/23 0836 Starts/Ends: 02/18/23 1100 - 02/18/23 1036 Ordered Dose (Remaining/Total): 250 mcg (0/1) Route: intravenous Frequency: Once Ordered Rate/Order Duration: -- / 5 Minutes Timestamps Action Dose / Duration Route Other Information 02/18/23 1031 Given 250 mcg 5 Minutes intravenous Performed by: Kel Issa RN Scanned Package: 85061-945-18 ioversoL (OPTIRAY 350) syringe 75 mL [[id number]] Ordering Provider: Olimpia Long MD Status: Completed (Past End Date/Time) Ordered On: 02/18/23 1358 Starts/Ends: 02/18/23 1357 - 02/18/23 1412 Ordered Dose (Remaining/Total): 75 mL (0/1) Route: intravenous Frequency: Once in imaging Ordered Rate/Order Duration: -- / -- Line Med Link Info Comment CVC Triple Lumen 02/15/23 #1 Brown, #2 White, #3 Blue, Right Femoral (White) 02/18/23 141 by Ever Hurtado, RT -- Timestamps Action Dose Route Other Information 02/18/231411 Contrast Given 75 mL intravenous Performed by: Ever Hurtado, RT magnesium sulfate 2 g/50 mL in water (premix) 2 g [[id number]] Ordering Provider: Aleksey Mendez MD Status: Completed (Past End Date/Time) Ordered On: 02/19/23558 Starts/Ends: 02/19/23629 - 02/19/23706 Ordered Dose (Remaining/Total): 2 g (01) Route: intravenous Frequency: Once Ordered Rate/Order Duration: -- / 60 Minutes Line Med Link Info Comment Peripheral IV 20 G Anterior;Distal;Left Wrist 02/19/23606 by [place] Del Castillo RN -- Timestamps Action Dose / Duration Route Other Information 02/19/23606 New Bag 2 g 60 Minutes intravenous Performed by: Florida Del Castillo RN Scanned Package: 83273-718-54 lidocaine PF (XYLOCAINE) 10 mg/mL (1 %) preservative free injection 10-20 mg [[id number]] Ordering Provider: Olimpia Long MD Status: Verified (Past End Date/Time) Ordered On: 02/19/23630 Starts/Ends: 02/19/23714 - 02/20/23714 Ordered Dose (Remaining/Total): 1-2 mL (11) Route: subcutaneous Frequency: Once Ordered Rate/Order Duration: -- / -- Admin Instructions: Administer to insertion site prior to procedure of local anesthesia. Administervolume needed to infiltrate site. (No admins scheduled or recorded for this medication) sodium chloride 0.9% flush 5-10 mL [[id number]] Ordering Provider: Olimpia Long MD Status: Verified Ordered On: 02/19/23630 Start: 02/19/23 09 Ordered Dose (Remaining/Total): 5-10 mL (--/--) Route: intra-catheter Frequency: Every 12 hours scheduled Ordered Rate/Order Duration: -- / -- Admin Instructions: Flush volume based on line type, size, and protocol. Timestamps Action Dose Route Other Information 03/19/23 1039 Given 10 mL intra-catheter Performed by: Scotty Cain RN sodium chloride 0.9% flush 5-20 mL [[id number]] Ordering Provider: Olimpia Long MD Status: Verified Ordered On: 02/19/23 06 Start: 02/19/23 06 Ordered Dose (Remaining/Total): 5-20 mL (--/--) Route: intra-catheter Frequency: As needed Ordered Rate/Order Duration: -- / -- Admin Instructions: Flush volume based on line type, size, and protocol. Timestamps Action Dose Route Other Information 03/10/23 1338 Given 10 mL intra-catheter Performed by: Tanna Veliz RN Scanned Package: [id number] furosemide (LASIX) 10 mg/mL injection 20 mg [[id number]] Ordering Provider: Olimpia Long MD Status: Completed (Past End Date/Time) Ordered On: 02/19/23 1515 Starts/Ends: 02/19/23 1600 - 02/19/23 163 Ordered Dose (Remaining/Total): 20 mg (0/1) Route: intravenous Frequency: Once Ordered Rate/Order Duration: -- / -- Admin Instructions: For IV push: administer doses < 160 mg at a rate of 20 -40 mg/min. Doses >/= 160 mg should be administered no faster than 4 mg/min. Room temperature only Timestamps Action Dose Route Other Information 02/19/23 1632 Given 20 mg intravenous Performed by: Kel Issa RN Scanned Package: 79042-837-95 potassium chloride ER (KLOR-CON) extended release tablet 30 mEq [[id number]] Ordering Provider: Eliud Pires MD Status: Completed (Past End Date/Time) Ordered On: 02/19/232006 Starts/Ends: 02/19/232044 - 02/20/23 0145 Ordered Dose (Remaining/Total): 30 mEq (0/2) Route: oral Frequency: Every 4 hours Ordered Rate/Order Duration: -- / -- Admin Instructions: Total dose = 60 mEq Tablets should not be crushed, chewed, dissolved, or otherwise manipulated. Capsules may be opened and sprinkled on a spoonful of applesauce or pudding, but the contents of the capsule should not be crushed or chewed. Timestamps Action Dose Route Other Information 02/20/23 0145 Given 30 mEq oral Performed by: Ella Atkins RN Scanned Package: 2536-0423-32, 8530-0220-82, 2132-3751-24 magnesium sulfate 2 g/50 mL in water (premix) 2 g [[id number]] Ordering Provider: Eliud Pires MD Status: Completed (Past End Date/Time) Ordered On: 02/20/23 0524 Starts/Ends: 02/20/23 0600 - 02/20/23 0643 Ordered Dose (Remaining/Total): 2 g (0/1) Route: intravenous Frequency: Once Ordered Rate/Order Duration: -- / 60 Minutes Timestamps Action Dose / Duration Route Other Information 02/20/23 0543 New Bag 2 g 60 Minutes intravenous Performed by: Ella Atkins RN Scanned Package: 05706-366-45 perflutren protein-a (OPTISON) 3 mL in sodium chloride 0.9% 8 mL syringe [[id number]] Ordering Provider: Franca Echevarria DO Status: Completed (Past End Date/Time) Ordered On: 02/20/23 0733 Starts/Ends: 02/20/23 0732 - 02/20/23 1024 Ordered Dose (Remaining/Total): 1-8 mL (0/1) Route: intravenous Frequency: Once in imaging Ordered Rate/Order Duration: -- / -- Timestamps Action Dose Route Other Information 02/20/23 1024 Contrast Given 3 mL intravenous Performed by: Elian Merino, [facility] metoprolol tartrate immediate release capsule 12.5 mg [[id number]] Ordering Provider: Olimpia Long MD Status: Completed (Past End Date/Time) Ordered On: 02/20/23 1037 Starts/Ends: 02/20/23 1115 - 02/20/23 1159 Ordered Dose (Remaining/Total): 12.5 mg (0/1) Route: oral Frequency: Once Ordered Rate/Order Duration: -- / -- Timestamps Action Dose Route Other Information 02/20/23 1159 Given 12.5 mg oral Performed by: Dea Gamino RN Scanned Package: 6307-9280-86, 2758-0448-70 sodium chloride 0.9% 0.9% infusion - ADS Override Pull [[id number]] Status: Dispensed (Past End Date/Time) Ordered On: 02/20/231743 Starts/Ends: 02/20/231743 - 02/21/23 0559 Ordered Dose (Remaining/Total): -- (06/16) Route: -- Frequency: -- Ordered Rate/Order Duration: -- / -- Admin Instructions: Created by cabinet override Note to pharmacy: Created by cabinet override (No admins scheduled or recorded for this medication) ioversoL (OPTIRAY 350) syringe 100 mL [[id number]] Ordering Provider: Aleksey Mendez MD Status: Completed (Past End Date/Time) Ordered On: 02/21/231423 Starts/Ends: 02/21/23 1423 - 02/21/23 1435 Ordered Dose (Remaining/Total): 100 mL (0/1) Route: intravenous Frequency: Once in imaging Ordered Rate/Order Duration: -- / -- Timestamps Action Dose Route Other Information 02/21/23 1435 Contrast Given 94 mL intravenous Performed by: Ever Hurtado RT magnesium sulfate 2 g/50 mL in water (premix) 2 g [[id number]] Ordering Provider: Bob Winter MD Status: Completed (Past End Date/Time) Ordered On: 02/21/232157 Starts/Ends: 02/21/232229 - 02/21/23 234 Ordered Dose (Remaining/Total): 2 g (0/1) Route: intravenous Frequency: Once Ordered Rate/Order Duration: -- / 60 Minutes Timestamps Action Dose / Duration Route Other Information 02/21/23 224 New Bag 2 g 60 Minutes intravenous Performed by: Katharina Glass RN Scanned Package: 25335-631-08 potassium chloride ER (KLOR-CON) extended release tablet 30 mEq [[id number]] Ordering Provider: Eliud Pires MD Status: Completed (Past End Date/Time) Ordered On: 02/22/232102 Starts/Ends: 02/22/232144 - 02/23/23299 Ordered Dose (Remaining/Total): 30 mEq (0/2) Route: oral Frequency: Every 4 hours Ordered Rate/Order Duration: -- / -- Admin Instructions: Total dose = 60 mEq Tablets should not be crushed, chewed, dissolved, or otherwise manipulated. Capsules may be opened and sprinkled on a spoonful of applesauce or pudding, but the contents of the capsule should not be crushed or chewed. Timestamps Action Dose Route Other Information 02/23/23299 Given 30 mEq oral Performed by: Katharina Glass RN Scanned Package: 7767-5269-26, 7919-4545-80, 0376-7100-35 magnesium sulfate 2 g/50 mL in water (premix) 2 g [[id number]] Ordering Provider: Eliud Pires MD Status: Completed (Past End Date/Time) Ordered On: 02/22/232102 Starts/Ends: 02/22/232144 - 02/22/232318 Ordered Dose (Remaining/Total): 2 g (0/1) Route: intravenous Frequency: Once Ordered Rate/Order Duration: -- / 60 Minutes Timestamps Action Dose / Duration Route Other Information 02/22/232218 New Bag 2 g 60 Minutes intravenous Performed by: Katharina Glass RN Scanned Package: 89600-946-13 camphor-menthoL (SARNA) 0.5-0.5 % lotion [[id number]] Ordering Provider: Ritika Serrano MD Status: Dispensed Ordered On: 02/22/232104 Start: 02/22/232104 Ordered Dose (Remaining/Total): -- (--/--) Route: topical Frequency: Every 6 hours PRN Ordered Rate/Order Duration: -- / -- Question Answer Comment Apply to affected area:: arm -- Laterality: Left -- Timestamps Action Dose Route Other Information 02/22/23 2220 Given 1 Application topical Performed by: Katharina Glass RN Scanned Package: 0983-7580-10 apixaban (ELIQUIS) tablet 5 mg [[id number]] Ordering Provider: Ritika Serrano MD Status: Dispensed Ordered On: 02/24/23 1124 Start: 02/24/23 1200 Ordered Dose (Remaining/Total): 5 mg (--/--) Route: oral Frequency: 2 times daily Ordered Rate/Order Duration: -- / -- Admin Instructions: Nurse to discontinue heparin infusion order and associated bolus at first administration of apixaban using ???order condition met??? order source Timestamps Action Dose Route Other Information 03/19/23 0836 Given 5 mg oral Performed by: Scotty Cain RN Scanned Package: 8921-5186-26 metoprolol XL (TOPROL-XL) extended release tablet 50 mg [[id number]] Ordering Provider: Ritika Serrano MD Status: Completed (Past End Date/Time) Ordered On: 02/24/231125 Starts/Ends: 02/24/232099 - 02/26/232101 Ordered Dose (Remaining/Total): 50 mg (0/5) Route: oral Frequency: 2 times daily Ordered Rate/Order Duration: -- / -- Admin Instructions: Tablets that are scored may be split, but do not crush, chew, dissolve, open or otherwise manipulate tablet/capsule. Timestamps Action Dose Route Other Information 02/26/232101 Given 50 mg oral Performed by: Jeimy Garcia RN Scanned Package: 07018-017-86 magnesium sulfate 2 g/50 mL in water (premix) 2 g [[id number]] Ordering Provider: Olimpia Long MD Status: Completed (Past End Date/Time) Ordered On: 02/24/232204 Starts/Ends: 02/24/232244 - 02/24/23 2314 Ordered Dose (Remaining/Total): 2 g (0/1) Route: intravenous Frequency: Once Ordered Rate/Order Duration: -- / 60 Minutes Timestamps Action Dose / Duration Route Other Information 02/24/23 221 New Bag 2 g 60 Minutes intravenous Performed by: Julio César Pratt RN Scanned Package: 40905-102-59 magnesium sulfate 2 g/50 mL in water (premix) 2 g [[id number]] Ordering Provider: Ritika Serrano MD Status: Completed (Past End Date/Time) Ordered On: 03/02/23 0855 Starts/Ends: 03/02/23 0930 - 03/02/23 1033 Ordered Dose (Remaining/Total): 2 g (0/1) Route: intravenous Frequency: Once Ordered Rate/Order Duration: -- / 60 Minutes Timestamps Action Dose / Duration Route Other Information 03/02/23 0933 New Bag 2 g 60 Minutes intravenous Performed by: Karen Ventura RN Scanned Package: 26635-020-23 potassium chloride ER (KLOR-CON) extended release tablet 40 mEq [[id number]] Ordering Provider: Ritika Serrano MD Status: Completed (Past End Date/Time) Ordered On: 03/03/23 0655 Starts/Ends: 03/03/23 07 - 03/03/23 0848 Ordered Dose (Remaining/Total): 40 mEq (0/1) Route: oral Frequency: Once Ordered Rate/Order Duration: -- / -- Admin Instructions: Tablets should not be crushed, chewed, dissolved, or otherwise manipulated. Capsules may be opened and sprinkled on a spoonful of applesauce or pudding, but the contents of the capsule should not be crushed or chewed. Timestamps Action Dose Route Other Information 03/03/23 0848 Given 40 mEq oral Performed by: Edita Callahan RN Scanned Package: 5570-9735-44, 1474-5283-56, 3591-2477-30, 2550-2983-45 lidocaine (LIDODERM) 5 % patch 1 patch [[id number]] Ordering Provider: Ritika Serrano MD Status: Dispensed Ordered On: 03/03/23 171 Start: 03/03/23 174 Ordered Dose (Remaining/Total): 1 patch (--/--) Route: transdermal Frequency: Daily Ordered Rate/Order Duration: -- / 12 Hours Admin Instructions: Do not cover the holes on the top side of the patch. Question Answer Comment Apply to affected area:: chest R chest Timestamps Action Dose / Duration Route / Site Other Information 03/19/23 0842 Medication Applied 1 patch 12 Hours transdermal Other (Comment) Performed by: Scotty Cain RN Comments: right leg Scanned Package: 4985-7856-20 metoprolol tartrate (LOPRESSOR) immediate release tablet 25 mg [[id number]] Ordering Provider: Ritika Serrano MD Status: Completed (Past End Date/Time) Ordered On: 03/04/23744 Starts/Ends: 03/04/23829 - 03/04/23751 Ordered Dose (Remaining/Total): 25 mg (0/1) Route: oral Frequency: Once Ordered Rate/Order Duration: -- / -- Timestamps Action Dose Route Other Information 03/04/23751 Given 25 mg oral Performed by: Edita Callahan RN Scanned Package: 10425-416-88 lidocaine (LIDODERM) 5 % patch 2 patch [[id number]] Ordering Provider: Ritika Serrano MD Status: Dispensed Ordered On: 03/04/23912 Start: 03/04/23944 Ordered Dose (Remaining/Total): 2 patch (--/--) Route: transdermal Frequency: Daily Ordered Rate/Order Duration: -- / 12 Hours Admin Instructions: Do not cover the holes on the top side of the patch. Question Answer Comment Apply to affected area:: back -- Timestamps Action Dose / Duration Route / Site Other Information 03/19/23 0838 Medication Applied 2 patch 12 Hours transdermal Other (Comment) Performed by: Scotty Cain RN Comments: right leg Scanned Package: 3796-4324-09, 7942-5535-50 diclofenac sodium (VOLTAREN) 1 % gel 2 g [[id number]] Ordering Provider: Ritika Serrano MD Status: Dispensed Ordered On: 03/04/23912 Start: 03/04/23944 Ordered Dose (Remaining/Total): 2 g (--/--) Route: topical Frequency: 3 times daily Ordered Rate/Order Duration: -- / -- Admin Instructions: Use dosing card to measure dose Question Answer Comment Apply to affected area:: leg -- -- back -- Laterality: Bilateral -- Timestamps Action Dose Route Other Information 03/18/23 2146 Given 2 g topical Performed by: Yaa Lara RN Scanned Package: 32007-893-92 amiodarone (PACERONE) tablet 200 mg [[id number]] Ordering Provider: Ritika Serrano MD Status: Completed (Past End Date/Time) Ordered On: 03/04/23 1345 Starts/Ends: 03/04/23 1415 - 03/04/23 1416 Ordered Dose (Remaining/Total): 200 mg (0/1) Route: oral Frequency: Once Ordered Rate/Order Duration: -- / -- Timestamps Action Dose Route Other Information 03/04/23 141 Given 200 mg oral Performed by: Edita Callahan RN Scanned Package: 90521-011-53 magnesium sulfate 2 g/50 mL in water (premix) 2 g [[id number]] Ordering Provider: Ritika Serrano MD Status: Completed (Past End Date/Time) Ordered On: 03/04/23 1349 Starts/Ends: 03/04/23 1430 - 03/04/23 1516 Ordered Dose (Remaining/Total): 2 g (0/1) Route: intravenous Frequency: Once Ordered Rate/Order Duration: -- / 60 Minutes Timestamps Action Dose / Duration Route Other Information 03/04/23 1416 New Bag 2 g 60 Minutes intravenous Performed by: Edita Callahan RN Scanned Package: 78286-744-38 Lactated Ringer's (LR) bolus 500 mL [[id number]] Ordering Provider: Ritika Serrano MD Status: Completed (Past End Date/Time) Ordered On: 03/05/23 1228 Starts/Ends: 03/05/23 1300 - 03/05/23 1637 Ordered Dose (Remaining/Total): 500 mL (0/1) Route: intravenous Frequency: Once Ordered Rate/Order Duration: 125 mL/hr / 4 Hours Timestamps Action Dose / Rate / Duration Route Other Information 03/05/23 1237 New Bag 500 mL 125 mL/hr 4 Hours intravenous Performed by: Karen Ventura RN Scanned Package: 0112-3145-67 Lactated Ringer's (LR) bolus 500 mL [[id number]] Ordering Provider: Prince Michel MD Status: Completed (Past End Date/Time) Ordered On: 03/06/23 0140 Starts/Ends: 03/06/23 0215 - 03/06/23 0216 Ordered Dose (Remaining/Total): 500 mL (0/1) Route: intravenous Frequency: Once Ordered Rate/Order Duration: 1,000 mL/hr / 30 Minutes Timestamps Action Dose / Rate / Duration Route Other Information 03/06/23 0146 New Bag 500 mL 1,000 mL/hr 30 Minutes intravenous Performed by: Jeimy Garcia RN Scanned Package: 8745-9730-76 gabapentin (NEURONTIN) capsule 200 mg [[id number]] Ordering Provider: Ritika Serrano MD Status: Dispensed Ordered On: 03/06/23 1126 Start: 03/06/23 2100 Ordered Dose (Remaining/Total): 200 mg (--/--) Route: oral Frequency: 2 times daily Ordered Rate/Order Duration: -- / -- Timestamps Action Dose Route Other Information 03/19/23 0835 Given 200 mg oral Performed by: Scotty Cain RN Scanned Package: 71056-331-18, 38074-197-14 ondansetron (ZOFRAN) injection 4 mg [[id number]] Ordering Provider: iRtika Serrano MD Status: Completed (Past End Date/Time) Ordered On: 03/06/23 1304 Starts/Ends: 03/06/23 1345 - 03/06/23 1310 Ordered Dose (Remaining/Total): 4 mg (0/1) Route: intravenous Frequency: Once Ordered Rate/Order Duration: -- / 2 Minutes Timestamps Action Dose / Duration Route Other Information 03/06/23 1308 Given 4 mg 2 Minutes intravenous Performed by: Baylee Munoz RN Scanned Package: [address]-7 Lactated Ringer's (LR) bolus 500 mL [[id number]] Ordering Provider: Ritika Serrano MD Status: Completed (Past End Date/Time) Ordered On: 03/06/23 1400 Starts/Ends: 03/06/23 1445 - 03/06/231916 Ordered Dose (Remaining/Total): 500 mL (0/1) Route: intravenous Frequency: Once Ordered Rate/Order Duration: 125 mL/hr / 4 Hours Timestamps Action Dose / Rate / Duration Route Other Information 03/06/23 1517 New Bag 500 mL 125 mL/hr 4 Hours intravenous Performed by: Baylee Munoz RN Comments: Per MD order - Dr. Serrano Scanned Package: 0094-1656-52 Lactated Ringer's (LR) bolus 500 mL [[id number]] Ordering Provider: Ritika Serrano MD Status: Completed (Past End Date/Time) Ordered On: 03/07/23 153 Starts/Ends: 03/07/23 1615 - 03/07/231913 Ordered Dose (Remaining/Total): 500 mL (0/1) Route: intravenous Frequency: Once Ordered Rate/Order Duration: 250 mL/hr / 2 Hours Line Med Link Info Comment PICC Triple Lumen 02/19/23 Non-tunneled Power #1 Doe, #2 Red, #3 White, Left Basilic;Upper arm (Red) 03/07/23 1714 by Isela Moreno RN -- Timestamps Action Dose / Rate / Duration Route Other Information 03/07/23 1714 New Bag 500 mL 250 mL/hr 2 Hours intravenous Performed by: Isela Moreno RN Scanned Package: 9312-4027-10 meclizine (ANTIVERT) tablet 25 mg [[id number]] Ordering Provider: Mikal Barrow MD Status: Completed (Past End Date/Time) Ordered On: 03/08/2314 Starts/Ends: 03/08/23 0945 - 03/08/23 0941 Ordered Dose (Remaining/Total): 25 mg (0/1) Route: oral Frequency: Once Ordered Rate/Order Duration: -- / -- Timestamps Action Dose Route Other Information 03/08/23 0941 Given 25 mg oral Performed by: Scotty Cain RN Scanned Package: 0549-7036-59 meclizine (ANTIVERT) tablet 12.5 mg [[id number]] Ordering Provider: Benjamín Rodriguez DO Status: Completed (Past End Date/Time) Ordered On: 03/08/23 1341 Starts/Ends: 03/08/23 1415 - 03/08/23 1721 Ordered Dose (Remaining/Total): 12.5 mg (0/1) Route: oral Frequency: Once Ordered Rate/Order Duration: -- / -- Timestamps Action Dose Route Other Information 03/08/23 1721 Given 12.5 mg oral Performed by: Scotty Cain RN Scanned Package: 46036-494-79 Lactated Ringer's (LR) bolus 1,000 mL [[id number]] Ordering Provider: Ritika Serrano MD Status: Completed (Past End Date/Time) Ordered On: 03/09/23 0945 Starts/Ends: 03/09/23 1030 - 03/09/23 1537 Ordered Dose (Remaining/Total): 1,000 mL (0/1) Route: intravenous Frequency: Once Ordered Rate/Order Duration: 250 mL/hr / 4 Hours Line Med Link Info Comment PICC Triple Lumen 02/19/23 Non-tunneled Power #1 Doe, #2 Red, #3 White, Left Basilic;Upper arm (Red) 03/09/23 1137 by Scotty Cain RN -- Timestamps Action Dose / Rate / Duration Route Other Information 03/09/23 1137 New Bag 1,000 mL 250 mL/hr 4 Hours intravenous Performed by: Scotty Cain RN Scanned Package: 4160-8338-96 ondansetron (ZOFRAN) injection 8 mg [[id number]] Ordering Provider: Ritika Serrano MD Status: Completed (Past End Date/Time) Ordered On: 03/09/23 1716 Starts/Ends: 03/09/23 1800 - 03/09/23 1800 Ordered Dose (Remaining/Total): 8 mg (0/1) Route: intravenous Frequency: Once Ordered Rate/Order Duration: -- / 2 Minutes Line Med Link Info Comment PICC Triple Lumen 02/19/23 Non-tunneled Power #1 Doe, #2 Red, #3 White, Left Basilic;Upper arm (Red) 03/09/23 1758 by Scotty Cain RN -- Timestamps Action Dose / Duration Route / Site Other Information 03/09/23 1758 Given 8 mg 2 Minutes intravenous Left Upper Arm Performed by: Scotty Cain RN Scanned Package: [address]-7, [address]-5 Lactated Ringer's (LR) bolus 1,000 mL [[id number]] Ordering Provider: Te Baker MD Status: Completed (Past End Date/Time) Ordered On: 03/11/23 1148 Starts/Ends: 03/11/23 1230 - 03/11/23 1420 Ordered Dose (Remaining/Total): 1,000 mL (0/) Route: intravenous Frequency: Once Ordered Rate/Order Duration: 500 mL/hr / 2 Hours Timestamps Action Dose / Rate / Duration Route Other Information 03/11/23 1220 New Bag 1,000 mL 500 mL/hr 2 Hours intravenous Performed by: Tanna Veliz RN ceftaroline (TEFLARO) 400 mg in sodium chloride 0.9% 40 mL [[id number]] Ordering Provider: Mikal Barrow MD Status: Completed (Past End Date/Time) Ordered On: 03/11/23 1246 Starts/Ends: 03/11/23 1330 - 03/16/23 1815 Ordered Dose (Remaining/Total): 400 mg (011) Route: intravenous Frequency: Every 12 hours scheduled Ordered Rate/Order Duration: 50 mL/hr / 60 Minutes Line Med Link Info Comment PICC Triple Lumen 02/19/23 Non-tunneled Power #1 Doe, #2 Red, #3 White, Left Basilic;Upper arm (Red) 03/12/23 0332 by Kiesha Joiner RN -- Timestamps Action Dose / Rate / Duration Route Other Information 03/16/23 1715 New Bag 400 mg 50 mL/hr 60 Minutes intravenous Performed by: Tanna Veliz RN Lactated Ringer's (LR) infusion [[id number]] Ordering Provider: Mikal Barrow MD Status: Dispensed (Past End Date/Time) Ordered On: 03/11/23 1545 Starts/Ends: 03/11/23 1630 - 03/12/23 1600 Ordered Dose (Remaining/Total): 50 mL/hr (--/--) Route: intravenous Frequency: Continuous Ordered Rate/Order Duration: 50 mL/hr / -- Timestamps Action Dose / Rate Route Other Information 03/11/23 1900 Rate/Dose Verify 50 mL/hr 50 mL/hr intravenous Performed by: Kiesha Joiner RN Lactated Ringer's (LR) bolus 1,000 mL [[id number]] Ordering Provider: Te Baker MD Status: Completed (Past End Date/Time) Ordered On: 03/12/23 1414 Starts/Ends: 03/12/23 1445 - 03/12/23 1903 Ordered Dose (Remaining/Total): 1,000 mL (0/1) Route: intravenous Frequency: Once Ordered Rate/Order Duration: 250 mL/hr / 4 Hours Line Med Link Info Comment PICC Triple Lumen 02/19/23 Non-tunneled Power #1 Doe, #2 Red, #3 White, Left Basilic;Upper arm (Red) 03/12/23 1503 by Millicent Coe RN -- Timestamps Action Dose / Rate / Duration Route Other Information 03/12/23 1503 New Bag 1,000 mL 250 mL/hr 4 Hours intravenous Performed by: Millicent Coe RN Scanned Package: 0059-3779-28 Lactated Ringer's (LR) bolus 1,000 mL [[id number]] Ordering Provider: Te Baker MD Status: Completed (Past End Date/Time) Ordered On: 03/14/23 0936 Starts/Ends: 03/14/23 1015 - 03/14/23 1348 Ordered Dose (Remaining/Total): 1,000 mL (0/1) Route: intravenous Frequency: Once Ordered Rate/Order Duration: 250 mL/hr / 4 Hours Line Med Link Info Comment PICC Triple Lumen 02/19/23 Non-tunneled Power #1 Doe, #2 Red, #3 White, Left Basilic;Upper arm (Red) 03/14/23 0948 by Millicent Coe RN -- Timestamps Action Dose / Rate / Duration Route Other Information 03/14/23 0948 New Bag 1,000 mL 250 mL/hr 4 Hours intravenous Performed by: Millicent Coe RN Scanned Package: 2143-9456-44 metoprolol tartrate (LOPRESSOR) immediate release tablet 25 mg [[id number]] Ordering Provider: Te Baker MD Status: Completed (Past End Date/Time) Ordered On: 03/14/23 0940 Starts/Ends: 03/14/23 1015 - 03/14/23 0948 Ordered Dose (Remaining/Total): 25 mg (0/1) Route: oral Frequency: Once Ordered Rate/Order Duration: -- / -- Timestamps Action Dose Route Other Information 03/14/23 0948 Given 25 mg oral Performed by: Millicent Coe RN Scanned Package: 92905-339-85 metoprolol (LOPRESSOR) injection 5 mg [[id number]] Ordering Provider: Te Baker MD Status: Completed (Past End Date/Time) Ordered On: 03/14/23 1029 Starts/Ends: 03/14/23 1100 - 03/14/23 1035 Ordered Dose (Remaining/Total): 5 mg (0/1) Route: intravenous Frequency: Once Ordered Rate/Order Duration: -- / 1 Minutes Line Med Link Info Comment PICC Triple Lumen 02/19/23 Non-tunneled Power #1 Doe, #2 Red, #3 White, Left Basilic;Upper arm (Red) 03/14/23 1034 by Millicent Coe RN -- Timestamps Action Dose / Duration Route Other Information 03/14/23 1034 Given 5 mg 1 Minutes intravenous Performed by: Millicent Coe RN Scanned Package: 7099-4812-27 amiodarone (PACERONE) tablet 400 mg [[id number]] Ordering Provider: Mikal Barrow MD Status: Dispensed Ordered On: 03/14/23 1523 Start: 03/15/23 0900 Ordered Dose (Remaining/Total): 400 mg (--/--) Route: oral Frequency: Daily Ordered Rate/Order Duration: -- / -- Admin Instructions: Please administer with food Timestamps Action Dose Route Other Information 03/19/23 0836 Given 400 mg oral Performed by: Scotty Cain RN Scanned Package: 97496-574-98, 25829-703-20 metoprolol XL (TOPROL-XL) extended release tablet 25 mg [[id number]] Ordering Provider: Mikal Barrow MD Status: Dispensed Ordered On: 03/15/23910 Start: 03/15/23944 Ordered Dose (Remaining/Total): 25 mg (--/--) Route: oral Frequency: Daily Ordered Rate/Order Duration: -- / -- Admin Instructions: Tablets that are scored may be split, but do not crush, chew, dissolve, open or otherwise manipulate tablet/capsule. Timestamps Action Dose Route Other Information 03/19/23834 Given 25 mg oral Performed by: Scotty Cain RN Scanned Package: 47599-741-72 midodrine (PROAMATINE) tablet 5 mg [[id number]] Ordering Provider: Mikal Barrow MD Status: Verified Ordered On: 03/15/23910 Start: 03/15/23910 Ordered Dose (Remaining/Total): 5 mg (--/--) Route: oral Frequency: Daily PRN Ordered Rate/Order Duration: -- / -- Admin Instructions: Give 30-45 min before working with physical therapy to reduce orthostasis (No admins scheduled or recorded for this medication) sodium chloride 0.9% IVPB 0-250 mL [[id number]] Ordering Provider: Janneth Moore MD Status: Completed (Past End Date/Time) Ordered On: 03/16/23109 Starts/Ends: 03/16/23144 - 03/16/23203 Ordered Dose (Remaining/Total): 0-250 mL (0/1) Route: intravenous Frequency: Once Ordered Rate/Order Duration: -- / -- Admin Instructions: Prime blood tubing and administer amount needed to clear line (usually 50-100 mL) after transfusion complete. Line Med Link Info Comment PICC Triple Lumen 02/19/23 Non-tunneled Power #1 Doe, #2 Red, #3 White, Left Basilic;Upper arm (Doe) 03/16/23203 by Kyung Pena, PHILIP -- Timestamps Action Dose Route Other Information 03/16/23203 New Bag 250 mL intravenous Performed by: Kyung Pena, PHILIP Scanned Package: 8538-2592-88 Lactated Ringer's (LR) bolus 1,000 mL [[id number]] Ordering Provider: Te Baker MD Status: Completed (Past End Date/Time) Ordered On: 03/16/23 1105 Starts/Ends: 03/16/23 1145 - 03/16/23 1521 Ordered Dose (Remaining/Total): 1,000 mL (0/1) Route: intravenous Frequency: Once Ordered Rate/Order Duration: 250 mL/hr / 4 Hours Timestamps Action Dose / Rate / Duration Route Other Information 03/16/23 1121 New Bag 1,000 mL 250 mL/hr 4 Hours intravenous Performed by: Tanna Veliz RN Scanned Package: 9185-4531-53 ioversoL (OPTIRAY 350) syringe 100 mL [[id number]] Ordering Provider: Te Baker MD Status: Completed (Past End Date/Time) Ordered On: 03/16/232200 Starts/Ends: 03/16/232200 - 03/16/232230 Ordered Dose (Remaining/Total): 100 mL (0/1) Route: intravenous Frequency: Once in imaging Ordered Rate/Order Duration: -- / -- Line Med Link Info Comment PICC Triple Lumen 02/19/23 Non-tunneled Power #1 Doe, #2 Red, #3 White, Left Basilic;Upper arm (Purple) 03/16/232230 by Prachi Gresham RT -- Timestamps Action Dose Route Other Information 03/16/232230 Contrast Given 88 mL intravenous Performed by: Prachi Gresham, RT Lactated Ringer's (LR) bolus 1,000 mL [[id number]] Ordering Provider: Te Baker MD Status: Completed (Past End Date/Time) Ordered On: 03/17/23 0803 Starts/Ends: 03/17/23 08 - 03/17/23 1245 Ordered Dose (Remaining/Total): 1,000 mL (0/1) Route: intravenous Frequency: Once Ordered Rate/Order Duration: 250 mL/hr / 4 Hours Timestamps Action Dose / Rate / Duration Route Other Information 03/17/23 0845 New Bag 1,000 mL 250 mL/hr 4 Hours intravenous Performed by: Tanna Veliz, PHILIP ondansetron (ZOFRAN) injection 8 mg [[id number]] Ordering Provider: Te Baker MD Status: Dispensed Ordered On: 03/17/23 174 Start: 03/18/23 1130 Ordered Dose (Remaining/Total): 8 mg (--/--) Route: intravenous Frequency: 2 times daily before meals (lunch, dinner) Ordered Rate/Order Duration: -- / 2 Minutes Line Med Link Info Comment PICC Triple Lumen 02/19/23 Non-tunneled Power #1 Doe, #2 Red, #3 White, Left Basilic;Upper arm (Red) 03/18/23 1156 by Scotty Cain RN -- Timestamps Action Dose / Duration Route / Site Other Information 03/19/23 1209 Given 8 mg 2 Minutes intravenous Left Upper Arm Performed by: Scotty Cain RN Scanned Package: [address]-2, [address]-3 magnesium sulfate 4 g/100 mL in water (premix) 4 g [[id number]] Ordering Provider: Te Baker MD Status: Completed (Past End Date/Time) Ordered On: 03/18/23814 Starts/Ends: 03/18/23 09 - 03/18/23 1054 Ordered Dose (Remaining/Total): 4 g (0/1) Route: intravenous Frequency: Once Ordered Rate/Order Duration: -- / 90 Minutes Line Med Link Info Comment PICC Triple Lumen 02/19/23 Non-tunneled Power #1 Doe, #2 Red, #3 White, Left Basilic;Upper arm (Red) 03/18/23 09 by Scotty Cain RN -- Timestamps Action Dose / Rate / Duration Route Other Information 03/18/23 09 New Bag 4 g 100 mL/hr 90 Minutes intravenous Performed by: Scotty Cain RN potassium chloride ER (KLOR-CON) extended release tablet 40 mEq [[id number]] Ordering Provider: Te Baker MD Status: Completed (Past End Date/Time) Ordered On: 10/03/23 0815 Starts/Ends: 03/18/23 0900 - 03/18/23 0912 Ordered Dose (Remaining/Total): 40 mEq (0/1) Route: oral Frequency: Once Ordered Rate/Order Duration: -- / -- Admin Instructions: Tablets should not be crushed, chewed, dissolved, or otherwise manipulated. Capsules may be opened and sprinkled on a spoonful of applesauce or pudding, but the contents of the capsule should not be crushed or chewed. Timestamps Action Dose Route Other Information 03/18/23911 Given 40 mEq oral Performed by: Scotty Cain RN Scanned Package: [id number], 6296-5346-82, 2151-8743-97, 0512-8920-86 acetaminophen (TYLENOL) tablet 1,000 mg [[id number]] Ordering Provider: Te Baker MD Status: Dispensed Ordered On: 03/18/23913 Start: 03/18/23 1600 Ordered Dose (Remaining/Total): 1,000 mg (--/--) Route: oral Frequency: 3 times daily Ordered Rate/Order Duration: -- / -- Timestamps Action Dose Route Other Information 03/19/23 0835 Given 1,000 mg oral Performed by: Scotty Cain RN Scanned Package: 9656-0068-13, 9370-7281-66 simethicone (MYLICON) chewable tablet 160 mg [[id number]] Ordering Provider: Te Baker MD Status: Completed (Past End Date/Time) Ordered On: 03/18/23914 Starts/Ends: 03/18/23 1000 - 03/18/23 1044 Ordered Dose (Remaining/Total): 160 mg (0/1) Route: oral Frequency: Once Ordered Rate/Order Duration: -- / -- Timestamps Action Dose Route Other Information 03/18/23 104 Given 160 mg oral Performed by: Scotty Cain RN Scanned Package: 79512-235-41, 56739-986-44 metoprolol tartrate (LOPRESSOR) immediate release tablet 25 mg [[id number]] Ordering Provider: Te Baker MD Status: Completed (Past End Date/Time) Ordered On: 03/18/23 1044 Starts/Ends: 03/18/23 1115 - 03/18/23 1155 Ordered Dose (Remaining/Total): 25 mg (0/1) Route: oral Frequency: Once Ordered Rate/Order Duration: -- / -- Timestamps Action Dose Route Other Information 03/18/23 1155 Given 25 mg oral Performed by: Scotty Cain RN Scanned Package: 70454-351-65 metoprolol tartrate (LOPRESSOR) immediate release tablet 25 mg [[id number]] Ordering Provider: Te Baker MD Status: Verified Ordered On: 03/18/23 145 Start: 03/18/23 145 Ordered Dose (Remaining/Total): 25 mg (--/--) Route: oral Frequency: Daily PRN Ordered Rate/Order Duration: -- / -- (No admins scheduled or recorded for this medication) * [facility] Note - Baylee Burkett RN - 03/19/2023 10:20 AM CDT Images from the original note were not included. Patient Information: OT Eval and Treat Last 72 Hours OT Evaluation No documentation. OT Treatment Row Name 03/17/23 1413 03/13/23 1305 Session Type Treatment -MS Treatment -JR OT Received On 03/17/23 -MS 03/13/23 -JR Safe Environment Arm band checked;Patient found in supine;Gait belt utilized for all out of bed mobility -MS Arm band checked;Patient found in supine -JR Subjective Agreeable to Therapy -MS Agreeable to Therapy -JR Family/Caregiver Present No -MS No -JR OT Functional Mobility Functional mobility NT 2/2 dizziness. Vital signs WNL. - MS -- Precautions Fall risk -MS Fall risk -JR Weight Bearing Restrictions Yes -MS Yes -JR RUE Weight Bearing NWB -MS NWB -JR Precaution Handout Issued No -MS -- Precaution Comments Verbally reviewed precautions with patient prior to mobility. Patient demonstrated adherence to precautions throughout session. -MS -- Pain Assessment No/denies pain -MS No/denies pain -JR Pain Score 0 - No pain -MS -- Balance Yes -MS Yes -JR Static Sitting-Balance Support Unilateral upper extremity supported;Feet supported unilateral UE supported on bed -MS -- Static Sitting-Sitting Surface Bed -MS -- Static Sitting-Level of Assistance Close supervision -MS -- Static Sitting-Comment/# of Minutes Ensure safety and balance -MS -- Dynamic Sitting-Balance Support Unilateral upper extremity supported;Feet supported unilateral UE supported on bed -MS No upper extremity supported;Feet supported -JR Dynamic Sitting-Balance Lateral lean;Forward lean;Reaching for objects -MS Forward lean;Reaching for objects -JR Dynamic Sitting-Sitting Surface Bed -MS Bed -JR Dynamic Sitting-Level of Assistance Close supervision -MS Close supervision -JR Dynamic Sitting-Comments Ensure safety and balance -MS -- Static Standing-Balance Support Left upper extremity supported on bed rail -MS Bilateral upper extremity supported -JR Static Standing-Standing Surface Floor -MS Floor -JR Static Standing-Level of Assistance Contact guard -MS Minimum assistance -JR Static Standing-Comment/# of Minutes Ensure safety and balance -MS -- Dynamic Standing-Balance Support Left upper extremity supported on therapist -MS -- Dynamic Standing-Balance Lateral lean;Forward lean;Reaching for objects -MS -- Dynamic Standing-Standing Surface Floor -MS -- Dynamic Standing-Level of Assistance Minimum assistance -MS -- ADLS (WDL) X -MS -- NT this date -JR Grooming: Where assessed Chair -MS -- Grooming: Level of assistance Moderate Assist -MS -- Grooming: Assistance with Safety;Other (Comment) balance -MS -- LE Dressing: Where assessed Chair -MS -- LE Dressing: Level of assistance Moderate Assist -MS -- LE Dressing: Assistance with Don/doff R sock;Thread RLE into pants;Pull up over hips;Safety;Other (Comment) balance -MS -- Bed Mobility Yes -MS Yes -JR Bed Mobility From 1 Supine -MS Supine -JR Bed Mobility Type 1 To -MS To and from -JR Bed Mobility to 1 Edge of bed -MS Rolling right;Rolling left -JR Level of Assistance 1 Minimum Assist -MS Minimum Assist -JR Bed Mobility Comments 1 Trunk elevation -MS Rotation of trunk -JR Bed Mobility From 2 -- Supine -JR Bed Mobility Type 2 -- To and from -JR Bed Mobility to 2 -- Edge of Bed -JR Level of Assistance 2 -- Moderate Assist -JR Bed Mobility Comments 2 -- Elevation of trunk, scooting hips towards EOB -JR Transfer Yes -MS Yes -JR Transfer From 1 Sit -MS Sit -JR Transfer Type 1 To and from -MS To and from -JR Transfer to 1 Stand -MS Stand -JR Technique 1 Sit to stand;Stand to sit -MS Sit to stand;Stand to sit -JR Transfer Device 1 Hand held assist -MS Hand held assist -JR Transfer Level of Assistance 1 Minimum Assist -MS Minimum Assist -JR Trials/Comments 1 Force production and balance -MS Force production, balance -JR Trials/Comments 2 -- Functional mobility NT 2/2 safety concerns. -JR Toilet Transfer From Bed -MS -- Toilet Transfer Type To -MS -- Toilet Transfer to -- Chair sim -MS -- Toilet Transfer Technique -- stand and step -MS -- Toilet Transfer: Equipment Hand hold -MS -- Toilet Transfers Minimal assistance -MS Not tested 2/2 safety concerns -JR Toilet Transfers Comments Force production and balance -MS -- Arousal/Alertness Alert;Appropriate responses to stimuli -MS Alert;Appropriate responses to stimuli-JR Attention Span Appears intact -MS Appears intact -JR Current communication Appears Intact -MS -- Orientation Oriented X4 (person, place, time, situation) -MS Oriented X4 (person, place, time, situation) -JR Following Commands Follows all commands and directions without difficulty -MS Follows all commands and directions without difficulty -JR Safety Judgment Good awareness of safety precautions -MS Good awareness of safety precautions -JR Awareness of Errors Assistance required to identify errors made -MS -- Insight Decreased awareness of deficits -MS -- Problem Solving Assistance required to identify errors made -MS -- Compliance/Behavior Easy to engage -MS Easy to engage -JR Perseveration Not present -MS -- Activity Tolerance Comments isaak: medium, LBD -MS -- Comments Session limited this date due to dizziness. Vitals taken in supine and sitting and all were WNL. Once dizziness resolved at EOB we transfered to the chair but in standing patient became dizzy with vitals WNL. -MS Session focused on functional transfers d/t unstable BP. Pt dizzy with all positional changes, no resolving in sitting only when supine. SBP from 150 to 113 in standing. No further OOB activity performed d/t orthostatic BP. -JR Putting on and taking off regular lower body clothing 2 -MS 2 -JR Bathing 2 -MS 2 -JR Toileting 2 -MS 2 -JR Putting on and taking off upper body clothing 3 -MS 3 -JR Personal Grooming 2 -MS 2 -JR Eating Meals 3 -MS 3 -JR Total Score (range 6-24) 14 -MS 14 -JR Score Interpretation 33.39 -MS 33.39 -JR Safe Environment End of Therapy Session Patient left in recliner;Call light within reach;Overbed table within reach -MS Patient left supine in bed;RN notified;Call light within reach;Overbed table within reach -JR Problem List Decreased safe judgment during ADL;Decreased endurance;Decreased balance;Decreased functional mobility;Decreased ADL independence;Decreased IADL independence -MS Decreased endurance;Decreased balance;Decreased functional mobility;Decreased ADL independence;Decreased IADL independence -JR Barriers to Discharge Current Mobility Status -MS Current Mobility Status -JR Barrier Comments Fall risk -MS -- Plan Continue with current plan;If this is the last note, consider this the discharge summary -MS Continue with current plan;If this is the last note, consider this the discharge summary -JR OT Recommendation Inpatient Rehab Facility -MS Inpatient Rehab Facility -JR Patient at high risk for Falls;Readmission;Injury due to decreased ability to care for self;Injury due to reduced functional status;Injury due to balance deficits;Injury at home as patient has not returned to prior level of function - MS Falls;Readmission;Injury due to decreased ability to care for self;Injury due to reduced functional status;Injury due to balance deficits;Injury at home as patient has not returned to prior level of function;Developing impaired skin integrity -JR Recommend Inpatient Rehab/Acute Rehab due to Ability to actively participate in intensive therapy 3hours/day, 5 days/week or 900 minutes per week;Highly motivated to participate in therapy;Not at baseline due to impaired ability to complete ADLs;Impaired ability to complete functional mobility;Likely to return to the community at discharge with support system in place;Requires greater than 25% physical assistance with most mobility tasks;Requires greater than 25% physical assistance with most ADL tasks;Requires multiple therapy disciplines to address functional deficits -MS Requires multipletherapy disciplines to address functional deficits;Requires greater than 25% physical assistance with most ADL tasks;Requires greater than 25% physical assistance with most mobility tasks;Likely to return to the community at discharge with support system in place;Impaired ability to complete functional mobility;Not at baseline due to impaired ability to complete ADLs;Highly motivated to participate in therapy;Ability to actively participate in intensive therapy 3 hours/day, 5 days/week or 900 minutes per week -JR OT Frequency during current admission 3-5x/wk -MS 3-5x/wk -JR Treatment/Interventions during current admission ADL/IADL retraining;Balance Training;Bed mobility;Compensatory technique education;Endurance training;Functional activity;Functional mobility training;Functional transfer training;Strengthening;Therapeutic activity;Therapeutic exercise;Transfer traini ng -MS ADL/IADL retraining;Balance Training;Bed mobility;Endurance training;Functional activity;Functional mobility training;Functional transfer training;Therapeutic activity;Therapeutic exercise;Strengthening;Transfer training - Progress during current admission Slow progress, medical status limitations -MS Slow progress, medical status limitations -JR OT - Next Appointment 03/19/23 -MS 03/17/23 - User Martinez (r) = Recorded By, (t) = Taken By, (c) = Cosigned By Initials Name Effective Dates JR Sami Moreau, OT 01/23/23 - Archie Tavares OT 09/30/22 - OT Notes 03/17/2023 4:35 PM Progress Notes signed by Archie Ann, ANNIE , PT Eval and Treat Last 72 Hours PT Evaluation No documentation. PT TREATMENT (last 168 hours) PT Treatment Row Name 03/18/23 0947 03/14/23 0859 PT Last Visit Session Type Treatment -AR Treatment -TN Safe Environment Arm band checked;Patient found in supine;Gait belt utilized for all out of bed mobility -AR Arm band checked;Patient found in supine;Gait belt utilized for all out of bed mobility -TN Subjective Agreeable to Therapy -AR Agreeable to Therapy -TN Subjective Comment I feel okay -AR I'm still a little dizzy -TN Family/Caregiver Present No -AR No -TN Precautions Precautions Fall risk -AR Fall risk -TN RUE Weight Bearing NWB -AR NWB -TN Precaution Comments -- verbally reviewed precautions for RUE -TN Activity Tolerance Activity Tolerance Comments ISAAK: Hard -AR -- Pain Assessment Pain Assessment No/denies pain -AR No/denies pain -TN Cognition Arousal/Alertness Alert;Appropriate responses to stimuli -AR -- Orientation Oriented X4 (person, place, time, situation) -AR Oriented X4 (person, place, time, situation) -TN Following Commands Follows all commands and directions without difficulty -AR -- Compliance/Behavior Easy to engage -AR -- Balance Balance Yes -AR -- Static Sitting Balance Static Sitting-Balance Support Feet supported;No upper extremity supported -AR Bilateral upper extremity supported;Feet supported -TN Static Sitting-Sitting Surface Bed -AR Bed -TN Static Sitting-Level of Assistance Close supervision -AR Contact guard -TN Static Sitting-Comment/# of Minutes sup for safety -AR contact guard to independent depending on level of dizziness and OH -TN Static Standing Balance Static Standing-Balance Support Bilateral upper extremity supported -AR Left upper extremity supported -TN Static Standing-Standing Surface Floor -AR Floor -TN Static Standing-Level of Assistance Minimum assistance -AR Contact guard -TN Static Standing-Comment/# of Minutes Min A for balance -AR contact guard for balance -TN Seated Seated-Exercise Comments Educated on LE ROM at EOB to promote blood flow and prevent orthostasis with standing -AR -- Bed Mobility Bed Mobility Yes -AR Yes -TN Bed Mobility 1 Bed Mobility From 1 Supine -AR Supine -TN Bed Mobility Type 1 To -AR To -TN Bed Mobility to 1 Edge of bed -AR Edge of bed -TN Level of Assistance 1 Standby Assist -AR Minimum Assist -TN Bed Mobility Comments 1 SBA for safety and cues for precautions -AR min assist for lifting the trunk into sitting. Pt lightheaded during transfers -TN Transfers Transfer Yes -AR Yes -TN Transfer 1 Transfer From 1 Sit -AR Sit -TN Transfer Type 1 To and from -AR To and from -TN Transfer to 1 Stand -AR Stand -TN Technique 1 Sit to stand;Stand to sit -AR Sit to stand;Stand to sit -TN Transfer Device 1 Hand held assist -AR Hand held assist -TN Transfer Level of Assistance 1 Minimum Assist -AR Minimum Assist -TN Trials/Comments 1 Min A for force production -AR min assist for force production and balance -TN Transfers 2 Transfer From 2 Bed -AR -- Transfer Type 2 To -AR -- Transfer to 2 Chair with arms -AR -- Technique 2 Stand and step -AR -- Transfer Device 2 Hand held assist -AR -- Transfer Level of Assistance 2 Minimum Assist -AR -- Trials/Comments 2 Min A for balance -AR -- Ambulation Ambulation Yes -AR Yes -TN Ambulation 1 Distance (ft) 1 180 -AR 25 -TN Surface 1 Level tile -AR Level tile -TN Device 1 Wheeled walker;Platform attachment right -AR Hand held assist -TN Assistance 1 Contact Guard Assist -AR Minimum Assist -TN Gait: Requires assist with 1 Maintaining balance -AR Maintaining balance -TN Gait: Requires verbal cues to 1 Pace activity;Utilize pursed lip breathing -AR -- Gait Deviations 1 Roma - decreased;Step length - decreased -AR Path deviation;Turns - difficulty;Shuffling -TN Ambulation Comments 1 no rest needed; CGA for balance -AR Pt requried contact guard to min assist for balance during ambulation. Only ambulated in the room -TN Stairs Stairs No -AR No -TN Other Comments Other PT Comments Pt. tolerates session well without significant dizziness. However, Per RN, HR up to 170s with ambulation. -AR Pt presents with intermittent dizziness throughout session with subsequent drop in BP. Please see vitals flowsheet for additional details -TN Basic Mobility - 6 Click How much difficulty does the patient have: Turning over in bed 3 -AR 4 -TN How much difficulty does the patient currently have: Sitting down and standing up from a chair witharms? 3 -AR 3 -TN How much difficulty does the patient have: Moving from lying on back to sitting on the side of the bed? 3 -AR 3 -TN How much difficulty does the patient have: Moving to and from a bed to a chair including wheelchair? 3 -AR 3 -TN How much help does the patient currently need: Walk in hospital room? 3 -AR 3 -TN How much help from another person does the patient currently need: Climbing 3-5 steps with a railing? 2 -AR 2 -TN Total 6 Click Score (range 6-24) 17 -AR 18 -TN Score Interpretation 39.67 -AR 41.05 -TN Safe Environment End of Therapy Session Safe Environment End of Therapy Session Patient left in chair;RN notified;Call light within reach -AR Patient left in recliner;RN notified;Call light within reach;Overbed table within reach -TN Assessment Prognosis Good -AR Good -TN Problem List Gait deviations;Decreased strength;Decreased endurance;Impaired balance -AR -- Barriers to Discharge -- Current Mobility Status decreased activity tolerance, OH -TN Plan Plan Continue with current plan;If this is the last note, consider this the discharge summary -AR Continue with current plan;If this is the last note, consider this the discharge summary -TN Recommendation/Plan PT Recommendation/Plan Inpatient Rehab Facility -AR -- PT Frequency during current admission 3-5x/wk -AR -- Treatment/Interventions during current admission Balance Training;Bed mobility;Gait training;Functional transfer training;Endurance training -AR -- Progress during current admission -- Progressing toward goals -TN PT - OK to Discharge -- No -TN User Martinez (r) = Recorded By, (t) = Taken By, (c) = Cosigned By Initials Name Effective Dates AR Suki Francisco DPT 03/17/23 - Mariam Laboy, STEPHEN 02/03/23 - PT Notes 03/18/2023 3:58 PM Progress Notes signed by Suki Francisco DPT * Plan of Care - Scotty Cain RN - 03/19/2023 9:48 AM CDT Problem: Health Behavior: Goal: Understanding of discharge needs will improve Outcome: Progressing Problem: Lack of Knowledge: Goal: Ability to state ways to decrease the risk of falls will improve Outcome: Progressing Problem: Safety: Goal: Will remain free from falls Outcome: Progressing Goal: Will remain free from injury from falls Outcome: Progressing Goal: Will remain free from falls and injury in home environment Outcome: Progressing Problem: Activity: Goal: Mobility will improve Outcome: Progressing Problem: Lack of Knowledge: Goal: Understanding of ways to prevent future skin breakdown will improve Outcome: Progressing Goal: Ability to identify appropriate dietary choices will improve Outcome: Progressing Problem: Nutritional: Goal: Dietary intake will improve Outcome: Progressing Goal: Ability to maintain a balanced intake and output will improve Outcome: Progressing Problem: Skin Integrity: Goal: Risk for impaired skin integrity will decrease Outcome: Progressing Goal: Ability to demonstrate warm and dry skin will improve Outcome: Progressing Goal: Circulation will improve to fullest extent possible Outcome: Progressing Problem: Cardiac: Goal: Ability to maintain an adequate cardiac output will improve Outcome: Progressing Goal: Hemodynamic stability will improve Outcome: Progressing Problem: Lack of Knowledge: Goal: Ability to state signs and symptoms to report to health care provider will improve Outcome: Progressing Goal: Knowledge of the prescribed therapeutic regimen will improve Outcome: Progressing Goal: Mental status will improve Outcome: Progressing Problem: Lack of Knowledge: Goal: Ability to develop a pain control plan will improve Outcome: Progressing Goal: Ability to identify pain intensity on a pain scale and rate it consistently will improve Outcome: Progressing Goal: Ability to notify healthcare provider of pain before it becomes unmanageable or unbearable will improve Outcome: Progressing Problem: Medication: Goal: Satisfaction with pain management regimen will improve Outcome: Progressing Problem: Sensory: Goal: Ability to identify factors that increase the pain will improve Outcome: Progressing Goal: Pain level will decrease Outcome: Progressing Problem: Activity: Goal: Ability to return to normal activity level will improve Outcome: Progressing Problem: Lack of Knowledge: Goal: Knowledge of the prescribed therapeutic regimen will improve Outcome: Progressing Problem: Coping: Goal: Ability to cope will improve Outcome: Progressing Problem: Health Behavior: Goal: Identification of resources available to assist in meeting health care needs will improve Outcome: Progressing Problem: Sensory: Goal: Pain level will decrease Outcome: Progressing Problem: Activity: Goal: Ability to tolerate increased activity will improve Outcome: Progressing Goal: Ability to participate in self-care as condition permits will improve Outcome: Progressing Problem: Cardiac: Goal: Ability to maintain an adequate cardiac output will improve Outcome: Progressing Goal: Will show no evidence of cardiac arrhythmias Outcome: Progressing Goal: Complications related to the disease process, condition or treatment will be avoided or minimized Outcome: Progressing Problem: Lack of Knowledge: Goal: Knowledge of disease or condition will improve Outcome: Progressing Goal: Knowledge of the prescribed therapeutic regimen will improve Outcome: Progressing Goal: Ability to identify and utilize available resources and services will improve Outcome: Progressing Problem: Coping: Goal: Level of anxiety will decrease Outcome: Progressing Problem: Safety: Goal: Ability to remain free from injury will improve Outcome: Progressing Goal: Will show no signs and symptoms of excessive bleeding Outcome: Progressing Goals: Clinical Goals for the Shift: VS, comfort care, nausea control Summary: patient will have stable vital signs, better appetite and nausea control, get up to the chair * Summary of Treatment Recommendations Non-Billable - Kevan Teran MD - 03/18/2023 6:16 PM CDT GENERAL GI SIGN OFF NOTE & RECOMMENDATIONS Date of Sign Off: 03/18/23 Diagnosis: Nausea/Vomiting PMD: Cristian Ling MD Inpatient GI Attending: Dr. Alize Hernandez Summary of Consultation: 77 y.o. female w/ PMH of pAF, Apical variant HCM, CAD with OR in 2012 s/p CABG with LAWSON to LAD andSVG to OM, HTN, DDD,diverticulitis, vertigo who presents as an OSH transfer for AFib with RVR foundto have MRSA bacteremia for whom GI was consulted for nausea/vomiting. CT A&P 03/16 w/ no explanation for abdominal pain. Low suspicion for mechanical obstruction or stricture. Recommended conserv ative management and to address pt's constipation w/ resuming her home linzess. Procedures: None Sign Off Recommendations Labs: none Pathology: None Procedures: none Imaging: none Treatment: none Outpatient Follow Up Plan: outpatient GI/hepatology follow up is not needed. The patient should follow-up with their primary care provider after discharge. Case discussed with Dr. Alize Hernandez. Thank you for involving us in the care of this patient. If you have any questions and the patient is still hospitalized, please call the GI Fellow General Call [facility] phone number available on [employer]. Ifthe patient has been discharged, please call the gastroenterology appointments line at [phone] for questions regarding clinic/procedures follow up. Kevan Teran MD Gastroenterology Fellow Cosigned by Alize Hernandez MD at 03/19/2023 1:13 PM CDT * Consults, Subsequent - Kevan Teran MD - 03/18/2023 6:09 PM CDT General GI Subsequent Consult Chief complaint: Recurrent nausea and vomiting Reason for consult: intractable nausea with PO intolerance intake Requesting provider: Te Baker MD Subjective: - No acute events overnight - 1 BM charted overnight, 2 BM's charted today - Linzess given this morning - Primary team avoiding compazine d/t urinary retention Past Medical History: Diagnosis Date Acid reflux Heart murmur High cholesterol History of blood clots 1960s in leg as teenager - had phlebitis History of OR (myocardial infarction) 2012 History of vertebral fracture 2017 HTN (hypertension) IBS (irritable bowel syndrome) Vertigo Past Surgical History: Procedure Laterality Date COLON SURGERY 1992 Repair burst colon CORONARY ARTERY BYPASS GRAFT 2012 Double by-pass - [facility] FLUORO GUIDED INJECTION HIP RIGHT Right 05/16/2022 FLUORO GUIDED INJECTION HIP RIGHT Right 08/15/2022 FLUORO GUIDED INJECTION HIP RIGHT Right 12/10/[address] James ([place], [place]) TOTAL KNEE ARTHROPLASTY Right 2018 No current facility-administered medications on file prior to encounter. Current Outpatient Medications on File Prior to Encounter Medication Sig acetaminophen (TYLENOL) 325 mg tablet alendronate (FOSAMAX) 70 mg tablet TAKE 1 TABLET BY MOUTH ONE TIME PER WEEK apixaban (Eliquis) 5 mg tablet TAKE 1 TABLET BY MOUTH TWICE DAILY aspirin 81 mg tablet daily. (Patient not taking: Reported on 01/13/2023) atorvastatin (LIPITOR) 80 mg tablet TAKE 1 TABLET AT BEDTIME. calcium carbonate-vitamin D3 500 mg(1,250mg) -400 unit chewable tablet Take 1 tablet by mouth daily cannabidiol, CBD, (medical cannabis) each 1 Dose [...] by mouth 2 (two) times a day docusate sodium (COLACE) 100 mg capsule TAKE 1 CAPSULE TWICE DAILY NEEDED. (Patient not taking: Reported on 05/01/2022) ezetimibe (ZETIA) 10 mg tablet TAKE 1 TABLET BY MOUTH EVERY DAY furosemide (LASIX) 40 mg tablet Take 1 tablet (40 mg total) by mouth 2 (two) times a day gabapentin (NEURONTIN) 100 mg capsule Take by mouth 4 (four) times a day LINZESS 145 mcg capsule Take by mouth daily. lisinopriL (PRINIVIL,ZESTRIL) 10 mg tablet Take 1 tablet (10 mg total) by mouth daily metoprolol XL (TOPROL-XL) 25 mg extended release tablet Take 1 tablet (25 mg total) by mouth daily multivitamin no.44-vit D3-K 1,000-800 unit-mcg capsule daily. omeprazole (PriLOSEC) 20 mg capsule Take 1 capsule (20 mg total) by mouth daily sertraline (ZOLOFT) 100 mg tablet Take 0.5 tablets (50 mg total) by mouth daily Allergies Allergen Reactions Codeine Hives and Shortness of breath Latex Itching Milk Nausea & Vomiting Tramadol Nausea & Vomiting and Unknown Social History reports that she has never smoked. She has been exposed to tobacco smoke. She has never used smokeless tobacco. She reports current drug use. Drug: Medical marijuana. Patient denies consuming alcoholic drinks. Family History family history includes Hypertension in her child; Prostate cancer in her father; Stroke in her child. Review of Systems: Review of systems per HPI and otherwise all other systems are negative OBJECTIVE Vitals: 24hr Min/Max: Temp Min: 36.7 ??C (98.1 ??F) Max: 36.8 ??C (98.2 ??F) Pulse Min: 60 Max: 150 BP Min: 108/71 Max: 168/67 Resp Min: 17 Max: 20 SpO2 Min: 91 % Max: 100 % I/O last 2 completed shifts: In: 1250 [P.O.:250; IV Piggyback:1000] Out: 325 [Urine:325] I/O this shift: In: 120 [P.O.:120] Out: 0 Physical Exam: General: Well-developed in NAD. HEENT: NC/AT. EOMI. MMM. Neck: Supple. No tenderness, enlargement, JVD or LAD noted. Lungs: CTAB. No wheezing or crackles heard. No respiratory distress. Heart: RRR. +S1, S2. No murmurs or gallops appreciated. Abdomen: Soft. NT/ND. BS active. No organomegaly. Ext/MS: No edema, cyanosis, or erythema. Good muscle strength and tone. Neuro: A&O x3. No focal deficits noted. Psych: Appears to have normal affect, mood, judgement, and insight. Skin: No obvious rashes or lesions noted. LABS: Lab Results Component Value Date WBC 4.9 03/17/2023 HGB 8.2 (L) 03/17/2023 HCT 25.5 (L) 03/17/2023 MCV 88.2 03/17/2023 LABPLAT 115 (L) 03/17/2023 Lab Results Component Value Date GLUCOSE 83 03/17/2023 CALCIUM 9.0 03/17/2023 SODIUM 141 03/17/2023 POTASSIUM 3.3 03/17/2023 CO2 26 03/17/2023 CHLORIDE 104 03/17/2023 BUNSER 4 (L) 03/17/2023 CREATININE 1.19 (H) 03/17/2023 Lab Results Component Value Date ALT 17 02/23/2023 AST 21 02/23/2023 ALKPHOS 98 02/23/2023 BILITOT 0.3 02/23/2023 Lab Results Component Value Date INR 1.78 (H) 02/17/2023 INR 1.42 (H) 09/15/2012 INR 1.8 (H) 09/15/2012 IMAGING Results for orders placed during the hospital encounter of 02/17/23 US Upper Extremity Left Limited Narrative EXAMINATION: US UPPER EXTREMITY LEFT LIMITED HISTORY: 77-year-old female with proximal atrial fibrillation with rapid ventricular response, septic emboli, MRSA bacteremia and cellulitis. This exam was requested to evaluate for cellulitis of the left upper extremity. COMPARISON: None FINDINGS: There is subcutaneous, soft tissue edema at the palpable area of concern. There are linear echogenicities within the underlying muscle (image 170). There are multiple round hypoechogenicities in the subcutaneous tissues of the largest of which measures up to 4 mm (image 100). Impression 1. Cellulitis with underlying myositis 2. Rounded areas of hypoechogenicity, which may represent small fluid without a drainable collection. :: Dictated by: Syed Guadalupe MD The radiology attending physician has personally reviewed this study, and had reviewed and/or edited this written report and agrees with it. Electronically signed by: Santino Robledo M.D. Results for orders placed during the hospital [...] effusions. Electronically signed by: Beto Sinha M.D. ASSESSMENT AND PLAN 77 y.o. female w/ PMH of pAF, Apical variant HCM, CAD with OR in 2012 s/p CABG with LAWSON to LAD andSVG to OM, HTN, DDD,diverticulitis, vertigo, prior DVT, OA who presents as an OSH transfer for AFibwith RVR complicated by hemodynamic instability now rate controlled on oral dig / metop /amio foundto have MRSA cellulitis and MRSA bacteremia with septic pulmonary emboli on Vanc. Impression: #Intractable Nausea/vomiting Ongoing since 03/02/[address] findings without acute findings within abdomen. Possible gastritis. While she does have a history of bowel perforation and takedown colostomy, it does not appear to be a stricture. Recommendations: - Continue Zofran as needed - continue home linzess, she reports taking this on a PRN baisis. Okay to change to PRN if developsdiarrhea - We will set her up for a screening colonoscopy as an oupt We will sign off. Thank you for involving us in the care of this patient. If you have any questions, please call the general GI phone during weekdays or the general GI phone during after hours and weekends. Kevan Teran MD Gastroenterology Fellow Cosigned by Alize Hernandez MD at 03/19/2023 1:13 PM CDT Associated attestation - Alize Hernandez MD - 03/19/2023 1:13 PM CDT I have seen and examined the patient on 03/18/2023. I agree with the findings and plan of care as documented in the resident's/fellow's note.. * Plan of Care - Scotty Cain RN - 03/18/2023 10:13 AM CDT Problem: Health Behavior: Goal: Understanding of discharge needs will improve Outcome: Progressing Problem: Lack of Knowledge: Goal: Ability to state ways to decrease the risk of falls will improve Outcome: Progressing Problem: Safety: Goal: Will remain free from falls Outcome: Progressing Goal: Will remain free from injury from falls Outcome: Progressing Goal: Will remain free from falls and injury in home environment Outcome: Progressing Problem: Activity: Goal: Mobility will improve Outcome: Progressing Problem: Lack of Knowledge: Goal: Understanding of ways to prevent future skin breakdown will improve Outcome: Progressing Goal: Ability to identify appropriate dietary choices will improve Outcome: Progressing Problem: Nutritional: Goal: Dietary intake will improve Outcome: Progressing Goal: Ability to maintain a balanced intake and output will improve Outcome: Progressing Problem: Skin Integrity: Goal: Risk for impaired skin integrity will decrease Outcome: Progressing Goal: Ability to demonstrate warm and dry skin will improve Outcome: Progressing Goal: Circulation will improve to fullest extent possible Outcome: Progressing Problem: Cardiac: Goal: Ability to maintain an adequate cardiac output will improve Outcome: Progressing Goal: Hemodynamic stability will improve Outcome: Progressing Problem: Lack of Knowledge: Goal: Ability to state signs and symptoms to report to health care provider will improve Outcome: Progressing Goal: Knowledge of the prescribed therapeutic regimen will improve Outcome: Progressing Goal: Mental status will improve Outcome: Progressing Problem: Lack of Knowledge: Goal: Ability to develop a pain control plan will improve Outcome: Progressing Goal: Ability to identify pain intensity on a pain scale and rate it consistently will improve Outcome: Progressing Goal: Ability to notify healthcare provider of pain before it becomes unmanageable or unbearable will improve Outcome: Progressing Problem: Medication: Goal: Satisfaction with pain management regimen will improve Outcome: Progressing Problem: Sensory: Goal: Ability to identify factors that increase the pain will improve Outcome: Progressing Goal: Pain level will decrease Outcome: Progressing Problem: Activity: Goal: Ability to return to normal activity level will improve Outcome: Progressing Problem: Lack of Knowledge: Goal: Knowledge of the prescribed therapeutic regimen will improve Outcome: Progressing Problem: Coping: Goal: Ability to cope will improve Outcome: Progressing Problem: Health Behavior: Goal: Identification of resources available to assist in meeting health care needs will improve Outcome: Progressing Problem: Sensory: Goal: Pain level will decrease Outcome: Progressing Problem: Activity: Goal: Ability to tolerate increased activity will improve Outcome: Progressing Goal: Ability to participate in self-care as condition permits will improve Outcome: Progressing Problem: Cardiac: Goal: Ability to maintain an adequate cardiac output will improve Outcome: Progressing Goal: Will show no evidence of cardiac arrhythmias Outcome: Progressing Goal: Complications related to the disease process, condition or treatment will be avoided or minimized Outcome: Progressing Problem: Lack of Knowledge: Goal: Knowledge of disease or condition will improve Outcome: Progressing Goal: Knowledge of the prescribed therapeutic regimen will improve Outcome: Progressing Goal: Ability to identify and utilize available resources and services will improve Outcome: Progressing Problem: Coping: Goal: Level of anxiety will decrease Outcome: Progressing Problem: Safety: Goal: Ability to remain free from injury will improve Outcome: Progressing Goal: Will show no signs and symptoms of excessive bleeding Outcome: Progressing Goals: Clinical Goals for the Shift: nausea control, better appetite and intake Summary: Stable Vital signs, Monitor I&O, monitor Nausea and increase appetite * Plan of Care - Ashanti Valdovinos RN - 03/18/2023 4:30 AM CDT Problem: Health Behavior: Goal: Understanding of discharge needs will improve Outcome: Progressing Problem: Lack of Knowledge: Goal: Ability to state ways to decrease the risk of falls will improve Outcome: Progressing Problem: Safety: Goal: Will remain free from falls Outcome: Progressing Goal: Will remain free from injury from falls Outcome: Progressing Goal: Will remain free from falls and injury in home environment Outcome: Progressing Problem: Activity: Goal: Mobility will improve Outcome: Progressing Problem: Lack of Knowledge: Goal: Understanding of ways to prevent future skin breakdown will improve Outcome: Progressing Goal: Ability to identify appropriate dietary choices will improve Outcome: Progressing Problem: Nutritional: Goal: Dietary intake will improve Outcome: Progressing Goal: Ability to maintain a balanced intake and output will improve Outcome: Progressing Problem: Skin Integrity: Goal: Risk for impaired skin integrity will decrease Outcome: Progressing Goal: Ability to demonstrate warm and dry skin will improve Outcome: Progressing Goal: Circulation will improve to fullest extent possible Outcome: Progressing Problem: Cardiac: Goal: Ability to maintain an adequate cardiac output will improve Outcome: Progressing Goal: Hemodynamic stability will improve Outcome: Progressing Problem: Lack of Knowledge: Goal: Ability to state signs and symptoms to report to health care provider will improve Outcome: Progressing Goal: Knowledge of the prescribed therapeutic regimen will improve Outcome: Progressing Goal: Mental status will improve Outcome: Progressing Problem: Lack of Knowledge: Goal: Ability to develop a pain control plan will improve Outcome: Progressing Goal: Ability to identify pain intensity on a pain scale and rate it consistently will improve Outcome: Progressing Goal: Ability to notify healthcare provider of pain before it becomes unmanageable or unbearable will improve Outcome: Progressing Problem: Medication: Goal: Satisfaction with pain management regimen will improve Outcome: Progressing Problem: Sensory: Goal: Ability to identify factors that increase the pain will improve Outcome: Progressing Goal: Pain level will decrease Outcome: Progressing Problem: Activity: Goal: Ability to return to normal activity level will improve Outcome: Progressing Problem: Lack of Knowledge: Goal: Knowledge of the prescribed therapeutic regimen will improve Outcome: Progressing Problem: Coping: Goal: Ability to cope will improve Outcome: Progressing Problem: Health Behavior: Goal: Identification of resources available to assist in meeting health care needs will improve Outcome: Progressing Problem: Sensory: Goal: Pain level will decrease Outcome: Progressing Problem: Activity: Goal: Ability to tolerate increased activity will improve Outcome: Progressing Goal: Ability to participate in self-care as condition permits will improve Outcome: Progressing Problem: Cardiac: Goal: Ability to maintain an adequate cardiac output will improve Outcome: Progressing Goal: Will show no evidence of cardiac arrhythmias Outcome: Progressing Goal: Complications related to the disease process, condition or treatment will be avoided or minimized Outcome: Progressing Problem: Lack of Knowledge: Goal: Knowledge of disease or condition will improve Outcome: Progressing Goal: Knowledge of the prescribed therapeutic regimen will improve Outcome: Progressing Goal: Ability to identify and utilize available resources and services will improve Outcome: Progressing Problem: Coping: Goal: Level of anxiety will decrease Outcome: Progressing Problem: Safety: Goal: Ability to remain free from injury will improve Outcome: Progressing Goal: Will show no signs and symptoms of excessive bleeding Outcome: Progressing Goals: Clinical Goals for the Shift: VSS, pain control, monitor I/O's, nausea control, safety precautions,and rest Summary: Pt progressing towards goals. Safety precautions maintained. Rest promoted and call light is within reach. * Plan of Care - Tanna Veliz RN - 03/17/2023 9:44 AM CDT Problem: Health Behavior: Goal: Understanding of discharge needs will improve Outcome: Progressing Problem: Lack of Knowledge: Goal: Ability to state ways to decrease the risk of falls will improve Outcome: Progressing Problem: Safety: Goal: Will remain free from falls Outcome: Progressing Goal: Will remain free from injury from falls Outcome: Progressing Goal: Will remain free from falls and injury in home environment Outcome: Progressing Problem: Activity: Goal: Mobility will improve Outcome: Progressing Problem: Lack of Knowledge: Goal: Understanding of ways to prevent future skin breakdown will improve Outcome: Progressing Goal: Ability to identify appropriate dietary choices will improve Outcome: Progressing Problem: Nutritional: Goal: Dietary intake will improve Outcome: Progressing Goal: Ability to maintain a balanced intake and output will improve Outcome: Progressing Problem: Skin Integrity: Goal: Risk for impaired skin integrity will decrease Outcome: Progressing Goal: Ability to demonstrate warm and dry skin will improve Outcome: Progressing Goal: Circulation will improve to fullest extent possible Outcome: Progressing Problem: Cardiac: Goal: Ability to maintain an adequate cardiac output will improve Outcome: Progressing Goal: Hemodynamic stability will improve Outcome: Progressing Problem: Lack of Knowledge: Goal: Ability to state signs and symptoms to report to health care provider will improve Outcome: Progressing Goal: Knowledge of the prescribed therapeutic regimen will improve Outcome: Progressing Goal: Mental status will improve Outcome: Progressing Problem: Lack of Knowledge: Goal: Ability to develop a pain control plan will improve Outcome: Progressing Goal: Ability to identify pain intensity on a pain scale and rate it consistently will improve Outcome: Progressing Goal: Ability to notify healthcare provider of pain before it becomes unmanageable or unbearable will improve Outcome: Progressing Problem: Medication: Goal: Satisfaction with pain management regimen will improve Outcome: Progressing Problem: Sensory: Goal: Ability to identify factors that increase the pain will improve Outcome: Progressing Goal: Pain level will decrease Outcome: Progressing Problem: Activity: Goal: Ability to return to normal activity level will improve Outcome: Progressing Problem: Lack of Knowledge: Goal: Knowledge of the prescribed therapeutic regimen will improve Outcome: Progressing Problem: Coping: Goal: Ability to cope will improve Outcome: Progressing Problem: Health Behavior: Goal: Identification of resources available to assist in meeting health care needs will improve Outcome: Progressing Problem: Sensory: Goal: Pain level will decrease Outcome: Progressing Problem: Activity: Goal: Ability to tolerate increased activity will improve Outcome: Progressing Goal: Ability to participate in self-care as condition permits will improve Outcome: Progressing Problem: Cardiac: Goal: Ability to maintain an adequate cardiac output will improve Outcome: Progressing Goal: Will show no evidence of cardiac arrhythmias Outcome: Progressing Goal: Complications related to the disease process, condition or treatment will be avoided or minimized Outcome: Progressing Problem: Lack of Knowledge: Goal: Knowledge of disease or condition will improve Outcome: Progressing Goal: Knowledge of the prescribed therapeutic regimen will improve Outcome: Progressing Goal: Ability to identify and utilize available resources and services will improve Outcome: Progressing Problem: Coping: Goal: Level of anxiety will decrease Outcome: Progressing Problem: Safety: Goal: Ability to remain free from injury will improve Outcome: Progressing Goal: Will show no signs and symptoms of excessive bleeding Outcome: Progressing Goals: Clinical Goals for the Shift: Patient will remain hemodynamically stable Summary: Denies any chest pain. Patient with abdominal pain. IVFs given per orders. * Plan of Care - Kyung Pena RN - 03/17/2023 1:11 AM CDT Goals: Clinical Goals for the Shift: Patient will remain HDS overnight Summary: Problem: Health Behavior: Goal: Understanding of discharge needs will improve Outcome: Ongoing Problem: Lack of Knowledge: Goal: Ability to state ways to decrease the risk of falls will improve Outcome: Ongoing Problem: Safety: Goal: Will remain free from falls Outcome: Ongoing Goal: Will remain free from injury from falls Outcome: Ongoing Goal: Will remain free from falls and injury in home environment Outcome: Ongoing Problem: Activity: Goal: Mobility will improve Outcome: Ongoing Problem: Lack of Knowledge: Goal: Understanding of ways to prevent future skin breakdown will improve Outcome: Ongoing Goal: Ability to identify appropriate dietary choices will improve Outcome: Ongoing Problem: Nutritional: Goal: Dietary intake will improve Outcome: Ongoing Goal: Ability to maintain a balanced intake and output will improve Outcome: Ongoing Problem: Skin Integrity: Goal: Risk for impaired skin integrity will decrease Outcome: Ongoing Goal: Ability to demonstrate warm and dry skin will improve Outcome: Ongoing Goal: Circulation will improve to fullest extent possible Outcome: Ongoing Problem: Cardiac: Goal: Ability to maintain an adequate cardiac output will improve Outcome: Ongoing Goal: Hemodynamic stability will improve Outcome: Ongoing Problem: Lack of Knowledge: Goal: Ability to state signs and symptoms to report to health care provider will improve Outcome: Ongoing Goal: Knowledge of the prescribed therapeutic regimen will improve Outcome: Ongoing Goal: Mental status will improve Outcome: Ongoing Problem: Lack of Knowledge: Goal: Ability to develop a pain control plan will improve Outcome: Ongoing Goal: Ability to identify pain intensity on a pain scale and rate it consistently will improve Outcome: Ongoing Goal: Ability to notify healthcare provider of pain before it becomes unmanageable or unbearable will improve Outcome: Ongoing Problem: Medication: Goal: Satisfaction with pain management regimen will improve Outcome: Ongoing Problem: Sensory: Goal: Ability to identify factors that increase the pain will improve Outcome: Ongoing Goal: Pain level will decrease Outcome: Ongoing Problem: Activity: Goal: Ability to return to normal activity level will improve Outcome: Ongoing Problem: Lack of Knowledge: Goal: Knowledge of the prescribed therapeutic regimen will improve Outcome: Ongoing Problem: Coping: Goal: Ability to cope will improve Outcome: Ongoing Problem: Health Behavior: Goal: Identification of resources available to assist in meeting health care needs will improve Outcome: Ongoing Problem: Sensory: Goal: Pain level will decrease Outcome: Ongoing Problem: Activity: Goal: Ability to tolerate increased activity will improve Outcome: Ongoing Goal: Ability to participate in self-care as condition permits will improve Outcome: Ongoing Problem: Cardiac: Goal: Ability to maintain an adequate cardiac output will improve Outcome: Ongoing Goal: Will show no evidence of cardiac arrhythmias Outcome: Ongoing Goal: Complications related to the disease process, condition or treatment will be avoided or minimized Outcome: Ongoing Problem: Lack of Knowledge: Goal: Knowledge of disease or condition will improve Outcome: Ongoing Goal: Knowledge of the prescribed therapeutic regimen will improve Outcome: Ongoing Goal: Ability to identify and utilize available resources and services will improve Outcome: Ongoing Problem: Coping: Goal: Level of anxiety will decrease Outcome: Ongoing Problem: Safety: Goal: Ability to remain free from injury will improve Outcome: Ongoing Goal: Will show no signs and symptoms of excessive bleeding Outcome: Ongoing * Plan of [facility] - Tanna Veliz RN - 03/16/2023 9:19 AM CDT Problem: Health Behavior: Goal: Understanding of discharge needs will improve Outcome: Progressing Problem: Lack of Knowledge: Goal: Ability to state ways to decrease the risk of falls will improve Outcome: Progressing Problem: Safety: Goal: Will remain free from falls Outcome: Progressing Goal: Will remain free from injury from falls Outcome: Progressing Goal: Will remain free from falls and injury in home environment Outcome: Progressing Problem: Activity: Goal: Mobility will improve Outcome: Progressing Problem: Lack of Knowledge: Goal: Understanding of ways to prevent future skin breakdown will improve Outcome: Progressing Goal: Ability to identify appropriate dietary choices will improve Outcome: Progressing Problem: Nutritional: Goal: Dietary intake will improve Outcome: Progressing Goal: Ability to maintain a balanced intake and output will improve Outcome: Progressing Problem: Skin Integrity: Goal: Risk for impaired skin integrity will decrease Outcome: Progressing Goal: Ability to demonstrate warm and dry skin will improve Outcome: Progressing Goal: Circulation will improve to fullest extent possible Outcome: Progressing Problem: Cardiac: Goal: Ability to maintain an adequate cardiac output will improve Outcome: Progressing Goal: Hemodynamic stability will improve Outcome: Progressing Problem: Lack of Knowledge: Goal: Ability to state signs and symptoms to report to health care provider will improve Outcome: Progressing Goal: Knowledge of the prescribed therapeutic regimen will improve Outcome: Progressing Goal: Mental status will improve Outcome: Progressing Problem: Lack of Knowledge: Goal: Ability to develop a pain control plan will improve Outcome: Progressing Goal: Ability to identify pain intensity on a pain scale and rate it consistently will improve Outcome: Progressing Goal: Ability to notify healthcare provider of pain before it becomes unmanageable or unbearable will improve Outcome: Progressing Problem: Medication: Goal: Satisfaction with pain management regimen will improve Outcome: Progressing Problem: Sensory: Goal: Ability to identify factors that increase the pain will improve Outcome: Progressing Goal: Pain level will decrease Outcome: Progressing Problem: Activity: Goal: Ability to return to normal activity level will improve Outcome: Progressing Problem: Lack of Knowledge: Goal: Knowledge of the prescribed therapeutic regimen will improve Outcome: Progressing Problem: Coping: Goal: Ability to cope will improve Outcome: Progressing Problem: Health Behavior: Goal: Identification of resources available to assist in meeting health care needs will improve Outcome: Progressing Problem: Sensory: Goal: Pain level will decrease Outcome: Progressing Problem: Activity: Goal: Ability to tolerate increased activity will improve Outcome: Progressing Goal: Ability to participate in self-care as condition permits will improve Outcome: Progressing Problem: Cardiac: Goal: Ability to maintain an adequate cardiac output will improve Outcome: Progressing Goal: Will show no evidence of cardiac arrhythmias Outcome: Progressing Goal: Complications related to the disease process, condition or treatment will be avoided or minimized Outcome: Progressing Problem: Lack of Knowledge: Goal: Knowledge of disease or condition will improve Outcome: Progressing Goal: Knowledge of the prescribed therapeutic regimen will improve Outcome: Progressing Goal: Ability to identify and utilize available resources and services will improve Outcome: Progressing Problem: Coping: Goal: Level of anxiety will decrease Outcome: Progressing Problem: Safety: Goal: Ability to remain free from injury will improve Outcome: Progressing Goal: Will show no signs and symptoms of excessive bleeding Outcome: Progressing Goals: Clinical Goals for the Shift: Patient will remain hemodynamically stable Summary: Multiple BMs this AM. C/O nausea. * Plan of Care - Kyung Pena RN - 03/15/2023 11:19 PM CDT Goals: Clinical Goals for the Shift: Patient will remain HDS overnight Summary: Problem: Health Behavior: Goal: Understanding of discharge needs will improve Outcome: Ongoing Problem: Lack of Knowledge: Goal: Ability to state ways to decrease the risk of falls will improve Outcome: Ongoing Problem: Safety: Goal: Will remain free from falls Outcome: Ongoing Goal: Will remain free from injury from falls Outcome: Ongoing Goal: Will remain free from falls and injury in home environment Outcome: Ongoing Problem: Activity: Goal: Mobility will improve Outcome: Ongoing Problem: Lack of Knowledge: Goal: Understanding of ways to prevent future skin breakdown will improve Outcome: Ongoing Goal: Ability to identify appropriate dietary choices will improve Outcome: Ongoing Problem: Nutritional: Goal: Dietary intake will improve Outcome: Ongoing Goal: Ability to maintain a balanced intake and output will improve Outcome: Ongoing Problem: Skin Integrity: Goal: Risk for impaired skin integrity will decrease Outcome: Ongoing Goal: Ability to demonstrate warm and dry skin will improve Outcome: Ongoing Goal: Circulation will improve to fullest extent possible Outcome: Ongoing Problem: Cardiac: Goal: Ability to maintain an adequate cardiac output will improve Outcome: Ongoing Goal: Hemodynamic stability will improve Outcome: Ongoing Problem: Lack of Knowledge: Goal: Ability to state signs and symptoms to report to health care provider will improve Outcome: Ongoing Goal: Knowledge of the prescribed therapeutic regimen will improve Outcome: Ongoing Goal: Mental status will improve Outcome: Ongoing Problem: Lack of Knowledge: Goal: Ability to develop a pain control plan will improve Outcome: Ongoing Goal: Ability to identify pain intensity on a pain scale and rate it consistently will improve Outcome: Ongoing Goal: Ability to notify healthcare provider of pain before it becomes unmanageable or unbearable will improve Outcome: Ongoing Problem: Medication: Goal: Satisfaction with pain management regimen will improve Outcome: Ongoing Problem: Sensory: Goal: Ability to identify factors that increase the pain will improve Outcome: Ongoing Goal: Pain level will decrease Outcome: Ongoing Problem: Activity: Goal: Ability to return to normal activity level will improve Outcome: Ongoing Problem: Lack of Knowledge: Goal: Knowledge of the prescribed therapeutic regimen will improve Outcome: Ongoing Problem: Coping: Goal: Ability to cope will improve Outcome: Ongoing Problem: Health Behavior: Goal: Identification of resources available to assist in meeting health care needs will improve Outcome: Ongoing Problem: Sensory: Goal: Pain level will decrease Outcome: Ongoing Problem: Activity: Goal: Ability to tolerate increased activity will improve Outcome: Ongoing Goal: Ability to participate in self-care as condition permits will improve Outcome: Ongoing Problem: Cardiac: Goal: Ability to maintain an adequate cardiac output will improve Outcome: Ongoing Goal: Will show no evidence of cardiac arrhythmias Outcome: Ongoing Goal: Complications related to the disease process, condition or treatment will be avoided or minimized Outcome: Ongoing Problem: Lack of Knowledge: Goal: Knowledge of disease or condition will improve Outcome: Ongoing Goal: Knowledge of the prescribed therapeutic regimen will improve Outcome: Ongoing Goal: Ability to identify and utilize available resources and services will improve Outcome: Ongoing Problem: Coping: Goal: Level of anxiety will decrease Outcome: Ongoing Problem: Safety: Goal: Ability to remain free from injury will improve Outcome: Ongoing Goal: Will show no signs and symptoms of excessive bleeding Outcome: Ongoing * Plan of Care - Tanna Veliz RN - 03/15/2023 9:10 AM CDT Problem: Health Behavior: Goal: Understanding of discharge needs will improve Outcome: Progressing Problem: Lack of Knowledge: Goal: Ability to state ways to decrease the risk of falls will improve Outcome: Progressing Problem: Safety: Goal: Will remain free from falls Outcome: Progressing Goal: Will remain free from injury from falls Outcome: Progressing Goal: Will remain free from falls and injury in home environment Outcome: Progressing Problem: Activity: Goal: Mobility will improve Outcome: Progressing Problem: Lack of Knowledge: Goal: Understanding of ways to prevent future skin breakdown will improve Outcome: Progressing Goal: Ability to identify appropriate dietary choices will improve Outcome: Progressing Problem: Nutritional: Goal: Dietary intake will improve Outcome: Progressing Goal: Ability to maintain a balanced intake and output will improve Outcome: Progressing Problem: Skin Integrity: Goal: Risk for impaired skin integrity will decrease Outcome: Progressing Goal: Ability to demonstrate warm and dry skin will improve Outcome: Progressing Goal: Circulation will improve to fullest extent possible Outcome: Progressing Problem: Cardiac: Goal: Ability to maintain an adequate cardiac output will improve Outcome: Progressing Goal: Hemodynamic stability will improve Outcome: Progressing Problem: Lack of Knowledge: Goal: Ability to state signs and symptoms to report to health care provider will improve Outcome: Progressing Goal: Knowledge of the prescribed therapeutic regimen will improve Outcome: Progressing Goal: Mental status will improve Outcome: Progressing Problem: Lack of Knowledge: Goal: Ability to develop a pain control plan will improve Outcome: Progressing Goal: Ability to identify pain intensity on a pain scale and rate it consistently will improve Outcome: Progressing Goal: Ability to notify healthcare provider of pain before it becomes unmanageable or unbearable will improve Outcome: Progressing Problem: Medication: Goal: Satisfaction with pain management regimen will improve Outcome: Progressing Problem: Sensory: Goal: Ability to identify factors that increase the pain will improve Outcome: Progressing Goal: Pain level will decrease Outcome: Progressing Problem: Activity: Goal: Ability to return to normal activity level will improve Outcome: Progressing Problem: Lack of Knowledge: Goal: Knowledge of the prescribed therapeutic regimen will improve Outcome: Progressing Problem: Coping: Goal: Ability to cope will improve Outcome: Progressing Problem: Health Behavior: Goal: Identification of resources available to assist in meeting health care needs will improve Outcome: Progressing Problem: Sensory: Goal: Pain level will decrease Outcome: Progressing Problem: Activity: Goal: Ability to tolerate increased activity will improve Outcome: Progressing Goal: Ability to participate in self-care as condition permits will improve Outcome: Progressing Problem: Cardiac: Goal: Ability to maintain an adequate cardiac output will improve Outcome: Progressing Goal: Will show no evidence of cardiac arrhythmias Outcome: Progressing Goal: Complications related to the disease process, condition or treatment will be avoided or minimized Outcome: Progressing Problem: Lack of Knowledge: Goal: Knowledge of disease or condition will improve Outcome: Progressing Goal: Knowledge of the prescribed therapeutic regimen will improve Outcome: Progressing Goal: Ability to identify and utilize available resources and services will improve Outcome: Progressing Problem: Coping: Goal: Level of anxiety will decrease Outcome: Progressing Problem: Safety: Goal: Ability to remain free from injury will improve Outcome: Progressing Goal: Will show no signs and symptoms of excessive bleeding Outcome: Progressing Goals: Clinical Goals for the Shift: Patient will remain hemodynamically stable Summary: Patient denies any chest pain. Patient medicated for nausea. * Plan of Care - Justin Bolivar RN - 03/14/2023 9:27 PM CDT Problem: Health Behavior: Goal: Understanding of discharge needs will improve Outcome: Progressing Problem: Lack of Knowledge: Goal: Ability to state ways to decrease the risk of falls will improve Outcome: Progressing Problem: Safety: Goal: Will remain free from falls Outcome: Progressing Goal: Will remain free from injury from falls Outcome: Progressing Goal: Will remain free from falls and injury in home environment Outcome: Progressing Problem: Activity: Goal: Mobility will improve Outcome: Progressing Problem: Lack of Knowledge: Goal: Understanding of ways to prevent future skin breakdown will improve Outcome: Progressing Goal: Ability to identify appropriate dietary choices will improve Outcome: Progressing Problem: Nutritional: Goal: Dietary intake will improve Outcome: Progressing Goal: Ability to maintain a balanced intake and output will improve Outcome: Progressing Problem: Skin Integrity: Goal: Risk for impaired skin integrity will decrease Outcome: Progressing Goal: Ability to demonstrate warm and dry skin will improve Outcome: Progressing Goal: Circulation will improve to fullest extent possible Outcome: Progressing Problem: Cardiac: Goal: Ability to maintain an adequate cardiac output will improve Outcome: Progressing Goal: Hemodynamic stability will improve Outcome: Progressing Problem: Lack of Knowledge: Goal: Ability to state signs and symptoms to report to health care provider will improve Outcome: Progressing Goal: Knowledge of the prescribed therapeutic regimen will improve Outcome: Progressing Goal: Mental status will improve Outcome: Progressing Problem: Lack of Knowledge: Goal: Ability to develop a pain control plan will improve Outcome: Progressing Goal: Ability to identify pain intensity on a pain scale and rate it consistently will improve Outcome: Progressing Goal: Ability to notify healthcare provider of pain before it becomes unmanageable or unbearable will improve Outcome: Progressing Problem: Medication: Goal: Satisfaction with pain management regimen will improve Outcome: Progressing Problem: Sensory: Goal: Ability to identify factors that increase the pain will improve Outcome: Progressing Goal: Pain level will decrease Outcome: Progressing Problem: Activity: Goal: Ability to return to normal activity level will improve Outcome: Progressing Problem: Lack of Knowledge: Goal: Knowledge of the prescribed therapeutic regimen will improve Outcome: Progressing Problem: Coping: Goal: Ability to cope will improve Outcome: Progressing Problem: Health Behavior: Goal: Identification of resources available to assist in meeting health care needs will improve Outcome: Progressing Problem: Sensory: Goal: Pain level will decrease Outcome: Progressing Problem: Activity: Goal: Ability to tolerate increased activity will improve Outcome: Progressing Goal: Ability to participate in self-care as condition permits will improve Outcome: Progressing Problem: Cardiac: Goal: Ability to maintain an adequate cardiac output will improve Outcome: Progressing Goal: Will show no evidence of cardiac arrhythmias Outcome: Progressing Goal: Complications related to the disease process, condition or treatment will be avoided or minimized Outcome: Progressing Problem: Lack of Knowledge: Goal: Knowledge of disease or condition will improve Outcome: Progressing Goal: Knowledge of the prescribed therapeutic regimen will improve Outcome: Progressing Goal: Ability to identify and utilize available resources and services will improve Outcome: Progressing Problem: Coping: Goal: Level of anxiety will decrease Outcome: Progressing Problem: Safety: Goal: Ability to remain free from injury will improve Outcome: Progressing Goal: Will show no signs and symptoms of excessive bleeding Outcome: Progressing Goals: Clinical Goals for the Shift: HDS and free from falls Summary: Jaz is stable. * Plan of Care - Baylee Burkett RN - 03/14/2023 2:17 PM CDT Per Medical Chart/Rounds/IDR: Patient converted to A-fib; IV abx through 03/16. No plans for weekenddischarge. ADD: 03/17 Plan & referrals made/in place: Accepted to [facility] ([facility] [phone]). SNF unable to do IV abx. Support following discharge: Family Transportation: EMS Patient's Identified Problem/Goal Problem: Ensure acute medical needs are met and that patient has a safe discharge plan. Goal: Secure a discharge plan that patient/family are agreeable with and ensure patient has continuum of care. Patient and/or family are agreeable with plan. science manager will continue to follow and assist with discharge planning as needed. If any further discharge needs arise, please contact the covering cyanide case hardener. * Plan of Care - Millicent Coe RN - 03/14/2023 11:59 AM CDT Goals: Clinical Goals for the Shift: HDS and free from falls Summary: Patient participates in care planning and verbalizes understanding Problem: Health Behavior: Goal: Understanding of discharge needs will improve 03/14/2023 1159 by Millicent Coe RN Outcome: Progressing 03/14/2023 1159 by Millicent Coe RN Outcome: Progressing Problem: Lack of Knowledge: Goal: Ability to state ways to decrease the risk of falls will improve 03/14/2023 1159 by Millicent Coe RN Outcome: Progressing 03/14/2023 1159 by Millicent Coe RN Outcome: Progressing Problem: Safety: Goal: Will remain free from falls 03/14/2023 1159 by Millicent Coe RN Outcome: Progressing 03/14/2023 1159 by Millicent Coe RN Outcome: Progressing Goal: Will remain free from injury from falls 03/14/2023 1159 by Millicent Coe RN Outcome: Progressing 03/14/2023 115 by Millicent Coe RN Outcome: Progressing Goal: Will remain free from falls and injury in home environment 03/14/2023 1159 by Millicent Coe RN Outcome: Progressing 03/14/2023 1159 by Millicent Coe RN Outcome: Progressing Problem: Activity: Goal: Mobility will improve 03/14/2023 1159 by Millicent Coe RN Outcome: Progressing 03/14/2023 1159 by Millicent Coe RN Outcome: Progressing Problem: Lack of Knowledge: Goal: Understanding of ways to prevent future skin breakdown will improve 03/14/2023 1159 by Millicent Coe RN Outcome: Progressing 03/14/2023 1159 by Millicent Coe RN Outcome: Progressing Goal: Ability to identify appropriate dietary choices will improve 03/14/2023 1159 by Millicent Coe RN Outcome: Progressing 03/14/2023 1159 by Millicent Coe RN Outcome: Progressing Problem: Nutritional: Goal: Dietary intake will improve 03/14/2023 1159 by Millicent Coe RN Outcome: Progressing 03/14/2023 1159 by Millicent Coe RN Outcome: Progressing Goal: Ability to maintain a balanced intake and output will improve 03/14/2023 1159 by Millicent Coe RN Outcome: Progressing 03/14/2023 1159 by Millicent Coe RN Outcome: Progressing Problem: Skin Integrity: Goal: Risk for impaired skin integrity will decrease 03/14/2023 1159 by Millicent Coe RN Outcome: Progressing 03/14/2023 1159 by Millicent Coe RN Outcome: Progressing Goal: Ability to demonstrate warm and dry skin will improve 03/14/2023 1159 by Millicent Coe RN Outcome: Progressing 03/14/2023 1159 by Millicent Coe RN Outcome: Progressing Goal: Circulation will improve to fullest extent possible 03/14/2023 1159 by Millicent Coe RN Outcome: Progressing 03/14/2023 1159 by Millicent Coe RN Outcome: Progressing Problem: Cardiac: Goal: Ability to maintain an adequate cardiac output will improve 03/14/2023 1159 by Millicent Coe RN Outcome: Progressing 03/14/2023 115 by Millicent Coe RN Outcome: Progressing Goal: Hemodynamic stability will improve 03/14/2023 1159 by Millicent Coe RN Outcome: Progressing 03/14/2023 1159 by Millicent Coe RN Outcome: Progressing Problem: Lack of Knowledge: Goal: Ability to state signs and symptoms to report to health care provider will improve 03/14/2023 1159 by Millicent Coe RN Outcome: Progressing 03/14/2023 1159 by Millicent Coe RN Outcome: Progressing Goal: Knowledge of the prescribed therapeutic regimen will improve 03/14/2023 1159 by Millicent Coe RN Outcome: Progressing 03/14/2023 1159 by Millicent Coe RN Outcome: Progressing Goal: Mental status will improve 03/14/2023 1159 by Millicent Coe RN Outcome: Progressing 03/14/2023 1159 by Mlilicent Coe RN Outcome: Progressing Problem: Lack of Knowledge: Goal: Ability to develop a pain control plan will improve 03/14/2023 1159 by Millicent Coe RN Outcome: Progressing 03/14/2023 1159 by Millicent Coe RN Outcome: Progressing Goal: Ability to identify pain intensity on a pain scale and rate it consistently will improve 03/14/2023 1159 by Millicent Coe, PHILIP Outcome: Progressing 03/14/2023 1159 by Millicent Coe RN Outcome: Progressing Goal: Ability to notify healthcare provider of pain before it becomes unmanageable or unbearable will improve 03/14/2023 1159 by Millicent Coe RN Outcome: Progressing 03/14/2023 1159 by Millicent Coe RN Outcome: Progressing Problem: Medication: Goal: Satisfaction with pain management regimen will improve 03/14/2023 1159 by Millicent Coe RN Outcome: Progressing 03/14/2023 1159 by Millicent Coe RN Outcome: Progressing Problem: Sensory: Goal: Ability to identify factors that increase the pain will improve 03/14/2023 1159 by Millicent Coe RN Outcome: Progressing 03/14/2023 1159 by Millicent Coe RN Outcome: Progressing Goal: Pain level will decrease 03/14/2023 1159 by Millicent Coe RN Outcome: Progressing 03/14/2023 115 by Millicent Coe RN Outcome: Progressing Problem: Activity: Goal: Ability to return to normal activity level will improve 03/14/2023 1159 by Millicent Coe RN Outcome: Progressing 03/14/2023 1159 by Millicent Coe RN Outcome: Progressing Problem: Lack of Knowledge: Goal: Knowledge of the prescribed therapeutic regimen will improve 03/14/2023 1159 by Millicent Coe RN Outcome: Progressing 03/14/2023 1159 by Millicent Coe RN Outcome: Progressing Problem: Coping: Goal: Ability to cope will improve 03/14/2023 1159 by Millicent Coe RN Outcome: Progressing 03/14/2023 1159 by Millicent Coe RN Outcome: Progressing Problem: Health Behavior: Goal: Identification of resources available to assist in meeting health care needs will improve 03/14/2023 1159 by Millicent Coe RN Outcome: Progressing 03/14/2023 1159 by Millicent Coe RN Outcome: Progressing Problem: Sensory: Goal: Pain level will decrease 03/14/2023 1159 by Millicent Coe RN Outcome: Progressing 03/14/2023 1159 by Millicent Coe RN Outcome: Progressing Problem: Activity: Goal: Ability to tolerate increased activity will improve 03/14/2023 1159 by Millicent Coe RN Outcome: Progressing 03/14/2023 1159 by Millicent Coe RN Outcome: Progressing Goal: Ability to participate in self-care as condition permits will improve 03/14/2023 1159 by Millicent Coe RN Outcome: Progressing 03/14/2023 1159 by Millicent Coe RN Outcome: Progressing Problem: Cardiac: Goal: Ability to maintain an adequate cardiac output will improve 03/14/2023 1159 by Millicent Coe RN Outcome: Progressing 03/14/2023 115 by Millicent Coe RN Outcome: Progressing Goal: Will show no evidence of cardiac arrhythmias 03/14/2023 115 by Millicent Coe RN Outcome: Progressing 03/14/2023 115 by Millicent Coe RN Outcome: Progressing Goal: Complications related to the disease process, condition or treatment will be avoided or minimized 03/14/2023 115 by Millicent Coe RN Outcome: Progressing 03/14/2023 115 by Millicent Coe RN Outcome: Progressing Problem: Lack of Knowledge: Goal: Knowledge of disease or condition will improve 03/14/2023 1159 by Millicent Coe RN Outcome: Progressing 03/14/2023 1159 by Millicent Coe RN Outcome: Progressing Goal: Knowledge of the prescribed therapeutic regimen will improve 03/14/2023 115 by Millicent Coe RN Outcome: Progressing 03/14/2023 115 by Millicent Coe RN Outcome: Progressing Goal: Ability to identify and utilize available resources and services will improve 03/14/2023 115 by Millicent Coe RN Outcome: Progressing 03/14/2023 115 by Millicent Coe RN Outcome: Progressing Problem: Coping: Goal: Level of anxiety will decrease Outcome: Progressing Problem: Safety: Goal: Ability to remain free from injury will improve Outcome: Progressing Goal: Will show no signs and symptoms of excessive bleeding Outcome: Progressing * Plan of [facility] - Justin Bolivar RN - 03/13/2023 10:38 PM CDT Problem: Health Behavior: Goal: Understanding of discharge needs will improve Outcome: Progressing Problem: Lack of Knowledge: Goal: Ability to state ways to decrease the risk of falls will improve Outcome: Progressing Problem: Safety: Goal: Will remain free from falls Outcome: Progressing Goal: Will remain free from injury from falls Outcome: Progressing Goal: Will remain free from falls and injury in home environment Outcome: Progressing Problem: Activity: Goal: Mobility will improve Outcome: Progressing Problem: Lack of Knowledge: Goal: Understanding of ways to prevent future skin breakdown will improve Outcome: Progressing Goal: Ability to identify appropriate dietary choices will improve Outcome: Progressing Problem: Nutritional: Goal: Dietary intake will improve Outcome: Progressing Goal: Ability to maintain a balanced intake and output will improve Outcome: Progressing Problem: Skin Integrity: Goal: Risk for impaired skin integrity will decrease Outcome: Progressing Goal: Ability to demonstrate warm and dry skin will improve Outcome: Progressing Goal: Circulation will improve to fullest extent possible Outcome: Progressing Problem: Cardiac: Goal: Ability to maintain an adequate cardiac output will improve Outcome: Progressing Goal: Hemodynamic stability will improve Outcome: Progressing Problem: Lack of Knowledge: Goal: Ability to state signs and symptoms to report to health care provider will improve Outcome: Progressing Goal: Knowledge of the prescribed therapeutic regimen will improve Outcome: Progressing Goal: Mental status will improve Outcome: Progressing Problem: Lack of Knowledge: Goal: Ability to develop a pain control plan will improve Outcome: Progressing Goal: Ability to identify pain intensity on a pain scale and rate it consistently will improve Outcome: Progressing Goal: Ability to notify healthcare provider of pain before it becomes unmanageable or unbearable will improve Outcome: Progressing Problem: Medication: Goal: Satisfaction with pain management regimen will improve Outcome: Progressing Problem: Sensory: Goal: Ability to identify factors that increase the pain will improve Outcome: Progressing Goal: Pain level will decrease Outcome: Progressing Problem: Activity: Goal: Ability to return to normal activity level will improve Outcome: Progressing Problem: Lack of Knowledge: Goal: Knowledge of the prescribed therapeutic regimen will improve Outcome: Progressing Problem: Coping: Goal: Ability to cope will improve Outcome: Progressing Problem: Health Behavior: Goal: Identification of resources available to assist in meeting health care needs will improve Outcome: Progressing Problem: Sensory: Goal: Pain level will decrease Outcome: Progressing Problem: Activity: Goal: Ability to tolerate increased activity will improve Outcome: Progressing Goal: Ability to participate in self-care as condition permits will improve Outcome: Progressing Problem: Cardiac: Goal: Ability to maintain an adequate cardiac output will improve Outcome: Progressing Goal: Will show no evidence of cardiac arrhythmias Outcome: Progressing Goal: Complications related to the disease process, condition or treatment will be avoided or minimized Outcome: Progressing Problem: Lack of Knowledge: Goal: Knowledge of disease or condition will improve Outcome: Progressing Goal: Knowledge of the prescribed therapeutic regimen will improve Outcome: Progressing Goal: Ability to identify and utilize available resources and services will improve Outcome: Progressing Problem: Coping: Goal: Level of anxiety will decrease Outcome: Progressing Problem: Safety: Goal: Ability to remain free from injury will improve Outcome: Progressing Goal: Will show no signs and symptoms of excessive bleeding Outcome: Progressing Goals: Clinical Goals for the Shift: HDS and free from falls Summary: Jaz is stable * Hospital Course - Te Baker MD PhD - 03/13/2023 1:25 PM CDT #Suprapubic abdominal pain, stable #Nausea, improved #IBS Developed new nausea and dizziness at rest from 03/01-, managed by Zofran. Suprapubic abd pain stable but limiting PO tolerance. Etiology unclear but in pt w/ extensive abd surg history (bowel perforation in , cholecystectomy) pursued further eval with GI and increased anti-nausea and pain regimen. Will also check amyloid labs given pt w/ hx/o HCM and abd pain with other possible etiologiesincluding gastritis and PUD. - Zofran 8 mg BID AGUS for nausea and Tylenol 1000 mg TID AGUS for pain - KUB (03/11): WNL - CT A/P (03/16): no definite explanation for abd pain - Several liters of LR for dehydration throughout hospitalization - continue Linaclotide for IBS - AL amyloid screening labs (03/17): K/L ratio normal - GI consult (03/17): alternate anti-emetics w/ compazine (avoiding d/t c/f urinary retention), ctn home linzess, colonoscopy outpt #Dizziness, improved #Orthostatic hypotension, improved After extensive workup (see prior progress notes) pt remains orthostatic with likely contributing factors including age, prolonged bed rest, and limited oral hydration. -bMRI (03/07) w/o acute findings -neuro c/s: Meclizine 25 mg q6 PRN -> d/c 03/12 d/t concerns for urinary retention which has since resolved - AM cortisol (03/12) w/o signs of adrenal insufficiency - Midodrine 5 mg PRN before physical therapy to reduce orthostasis but was not been used #pAF with RVR s/p DCCV Home regimen: metop 50 mg daily. Previously on sotalol 80 mg (15 d supply last dispensed 02/07/23). TTE 02/20 read LVEF 55-60, no valvular dz. S/p DCCV. NSR except reverting back to Afib w RVR on 03/04 iso holding metop due to n/v. Metop briefly started but then discontinued iso severe n/v/dizziness/vertigo. Was in NSR with Amio 200 BID for many days, w/ recent afib w/ RVR working with PT that responded to metop PO and IV. - Continue with home Eliquis - Continue amio 400 PO daily - Continue metoprolol 25 ER daily and metop tartrate 25 before PT to prevent afib (hold for HR <55) - continue dose reduced Gabapentin at 200 BID (changed on 03/06 for ~75% reduction w/ eGFR 25). - Will need to reschedule office visit w/ [employer] Harpreet Ravi at Dr. Stafford's office planned for todayOct #Anemia of Chronic disease Baseline 9-10. 8.0 on day of admission then mostly in 7s therafter. Fe 24, Ferritin 299, TIBC 192, Tsat 13% suggestive of anemia of chronic disease. B12 1886, folate 15.3. Hgb dropped to 6.9 on 03/15 -> 1 unit pRBC -> 8.5 post-transfusion; no active signs of bleeding. - Post-transfusion Hgb stable, CTM w/ daily CBCs #MRSA cellulitis #MRSA bacteremia #Septic pulmonary emboli Positive cultures 02/14, but started empirically on vanc 02/12. In house read of OSH CT CAP with septic emboli in lungs, confirmed on repeat this admission. 02/20 Bcx+ within 24 hours MRSE 1/2 bottles, likely contaminant. TTE 02/20 read LVEF 55- 60, no valvular dz or vegetations. 02/20 LUE ultrasound with cellulitis with underlying myositis and small non-drainable fluid collection, verified by CT LUE without osteomyelitis. 02/20 ACCS c/s rec nonoperative. L PICC placed after initial + Bcx, okay to leave inper ID for Vanc course. 02/20 Bcx+ MRSE 1/2 bottles likely contaminant. - ID c/s with recs Abx x4 weeks: Vanc 4 weeks end (02/12-03/03) => PO Linezolid 600mg BID (03/03-03/11, stopped d/t concern for contribution to nausea) => IV ceftaroline (03/12-03/16) -Concern that linezolid may be contributing to dizziness; initially trialed with food but did not improve #CLAUDIA on CKD 3a, improving Per chart review Baseline Cr ~0.9. Cr 1.22 => 2.02 iso restarting home lasix 40 BID and recent IV vanc (last dose supratherapeutic). FeNa 1.3% suggests intrinsic cause. Currently still up from baseline iso poor PO intake, requiring intermittent IV fluid repletion. - Improve with fluids and continuing holding lasix. - discuss continuing lasix 40 mg daily as outpatient #Urinary Retention, resolved New overnight (03/12) w/ bladder scan showing 900 mL. Straight cath removal of 1.1L. Meclizine discontinued and pt w/o further retention -CTM and avoid anticholinergic agents #HTN #HLD #CAD c/b OR s/p CABG #apical HCM No indication for triple therapy AC/antiplatelet at this time. Lipid panel with LDL 37, A1c 5.4. Home HTN regimen: lisinopril 10mg. - Atorvastatin 80, Zetia, Plavix, home Eliquis - No plan to restart ASA given AC - Continue to hold home lisinopril 10 mg d/t orthostasis while inpt #R rib pain, resolved #Hip pain, resolved Several day hx, reproducible on exam. Now resolved with Lidocaine patch. - Continue with lidocaine patches #R arm fracture #R arm fracture Fracture after ground-level fall 02/06. S/p cast with plan for outpatient follow up. C/o swelling after ortho recast while here but neurovascular intact without numbness/tingling/loss of dexterity. Xray arm wit nondisplaced arm fracture. - RUE platform weight bearing - XR 02/26 per Ortho rec to ensure no interval displacement: minimally displaced ulnar styloid process fracture. [facility] -Repeat XR 03/20 per ortho which showed Healing mildly impacted, displaced, intra-articular fracture of the distal radius in unchanged alignment. -Outpt follow up #prior DVT Remote, unprovoked. Chronically on Eliquis and contiued #OA #DDD Current home regimen: Voltaren gel, gabapentin 600mg QID - Lidocaine patches and APAP as needed #osteoporosis Currently on alendronate 70 mg qWeekly - CTM, held inpt. Will resume outpt. #GERD Home regimen: omeprazole 20mg - PPI #anxiety/depression - Continue Zoloft * Plan of Care - Millicent Coe RN - 03/13/2023 11:25 AM CDT Goals: Clinical Goals for the Shift: HDS and free from falls Summary: Patient participates in care planning and verbalizes understanding Problem: Health Behavior: Goal: Understanding of discharge needs will improve Outcome: Progressing Problem: Lack of Knowledge: Goal: Ability to state ways to decrease the risk of falls will improve Outcome: Progressing Problem: Safety: Goal: Will remain free from falls Outcome: Progressing Goal: Will remain free from injury from falls Outcome: Progressing Goal: Will remain free from falls and injury in home environment Outcome: Progressing Problem: Activity: Goal: Mobility will improve Outcome: Progressing Problem: Lack of Knowledge: Goal: Understanding of ways to prevent future skin breakdown will improve Outcome: Progressing Goal: Ability to identify appropriate dietary choices will improve Outcome: Progressing Problem: Nutritional: Goal: Dietary intake will improve Outcome: Progressing Goal: Ability to maintain a balanced intake and output will improve Outcome: Progressing Problem: Skin Integrity: Goal: Risk for impaired skin integrity will decrease Outcome: Progressing Goal: Ability to demonstrate warm and dry skin will improve Outcome: Progressing Goal: Circulation will improve to fullest extent possible Outcome: Progressing Problem: Cardiac: Goal: Ability to maintain an adequate cardiac output will improve Outcome: Progressing Goal: Hemodynamic stability will improve Outcome: Progressing Problem: Lack of Knowledge: Goal: Ability to state signs and symptoms to report to health care provider will improve Outcome: Progressing Goal: Knowledge of the prescribed therapeutic regimen will improve Outcome: Progressing Goal: Mental status will improve Outcome: Progressing Problem: Lack of Knowledge: Goal: Ability to develop a pain control plan will improve Outcome: Progressing Goal: Ability to identify pain intensity on a pain scale and rate it consistently will improve Outcome: Progressing Goal: Ability to notify healthcare provider of pain before it becomes unmanageable or unbearable will improve Outcome: Progressing Problem: Medication: Goal: Satisfaction with pain management regimen will improve Outcome: Progressing Problem: Sensory: Goal: Ability to identify factors that increase the pain will improve Outcome: Progressing Goal: Pain level will decrease Outcome: Progressing Problem: Activity: Goal: Ability to return to normal activity level will improve Outcome: Progressing Problem: Lack of Knowledge: Goal: Knowledge of the prescribed therapeutic regimen will improve Outcome: Progressing Problem: Coping: Goal: Ability to cope will improve Outcome: Progressing Problem: Health Behavior: Goal: Identification of resources available to assist in meeting health care needs will improve Outcome: Progressing Problem: Sensory: Goal: Pain level will decrease Outcome: Progressing Problem: Activity: Goal: Ability to tolerate increased activity will improve Outcome: Progressing Goal: Ability to participate in self-care as condition permits will improve Outcome: Progressing Problem: Cardiac: Goal: Ability to maintain an adequate cardiac output will improve Outcome: Progressing Goal: Will show no evidence of cardiac arrhythmias Outcome: Progressing Goal: Complications related to the disease process, condition or treatment will be avoided or minimized Outcome: Progressing Problem: Lack of Knowledge: Goal: Knowledge of disease or condition will improve Outcome: Progressing Goal: Knowledge of the prescribed therapeutic regimen will improve Outcome: Progressing Goal: Ability to identify and utilize available resources and services will improve Outcome: Progressing Problem: Coping: Goal: Level of anxiety will decrease Outcome: Progressing Problem: Safety: Goal: Ability to remain free from injury will improve Outcome: Progressing Goal: Will show no signs and symptoms of excessive bleeding Outcome: Progressing * Plan of Care - Kiesha Joiner RN - 03/12/2023 10:55 PM CDT Goals: Clinical Goals for the Shift: patient will remain HDS Summary: Problem: Health Behavior: Goal: Understanding of discharge needs will improve Outcome: Progressing Problem: Lack of Knowledge: Goal: Ability to state ways to decrease the risk of falls will improve Outcome: Progressing Problem: Safety: Goal: Will remain free from falls Outcome: Progressing Goal: Will remain free from injury from falls Outcome: Progressing Goal: Will remain free from falls and injury in home environment Outcome: Progressing Problem: Activity: Goal: Mobility will improve Outcome: Progressing Problem: Lack of Knowledge: Goal: Understanding of ways to prevent future skin breakdown will improve Outcome: Progressing Goal: Ability to identify appropriate dietary choices will improve Outcome: Progressing Problem: Nutritional: Goal: Dietary intake will improve Outcome: Progressing Goal: Ability to maintain a balanced intake and output will improve Outcome: Progressing Problem: Skin Integrity: Goal: Risk for impaired skin integrity will decrease Outcome: Progressing Goal: Ability to demonstrate warm and dry skin will improve Outcome: Progressing Goal: Circulation will improve to fullest extent possible Outcome: Progressing Problem: Cardiac: Goal: Ability to maintain an adequate cardiac output will improve Outcome: Progressing Goal: Hemodynamic stability will improve Outcome: Progressing Problem: Lack of Knowledge: Goal: Ability to state signs and symptoms to report to health care provider will improve Outcome: Progressing Goal: Knowledge of the prescribed therapeutic regimen will improve Outcome: Progressing Goal: Mental status will improve Outcome: Progressing Problem: Lack of Knowledge: Goal: Ability to develop a pain control plan will improve Outcome: Progressing Goal: Ability to identify pain intensity on a pain scale and rate it consistently will improve Outcome: Progressing Goal: Ability to notify healthcare provider of pain before it becomes unmanageable or unbearable will improve Outcome: Progressing Problem: Medication: Goal: Satisfaction with pain management regimen will improve Outcome: Progressing Problem: Sensory: Goal: Ability to identify factors that increase the pain will improve Outcome: Progressing Goal: Pain level will decrease Outcome: Progressing Problem: Activity: Goal: Ability to return to normal activity level will improve Outcome: Progressing Problem: Lack of Knowledge: Goal: Knowledge of the prescribed therapeutic regimen will improve Outcome: Progressing Problem: Coping: Goal: Ability to cope will improve Outcome: Progressing Problem: Health Behavior: Goal: Identification of resources available to assist in meeting health care needs will improve Outcome: Progressing Problem: Sensory: Goal: Pain level will decrease Outcome: Progressing Problem: Activity: Goal: Ability to tolerate increased activity will improve Outcome: Progressing Goal: Ability to participate in self-care as condition permits will improve Outcome: Progressing Problem: Cardiac: Goal: Ability to maintain an adequate cardiac output will improve Outcome: Progressing Goal: Will show no evidence of cardiac arrhythmias Outcome: Progressing Goal: Complications related to the disease process, condition or treatment will be avoided or minimized Outcome: Progressing Problem: Lack of Knowledge: Goal: Knowledge of disease or condition will improve Outcome: Progressing Goal: Knowledge of the prescribed therapeutic regimen will improve Outcome: Progressing Goal: Ability to identify and utilize available resources and services will improve Outcome: Progressing Problem: Coping: Goal: Level of anxiety will decrease Outcome: Progressing Problem: Safety: Goal: Ability to remain free from injury will improve Outcome: Progressing Goal: Will show no signs and symptoms of excessive bleeding Outcome: Progressing * Plan of Care - Millicent Coe RN - 03/12/2023 10:49 AM CDT Goals: Clinical Goals for the Shift: HDS and free from falls Summary: Patient participates in care planning and verbalizes understanding Problem: Health Behavior: Goal: Understanding of discharge needs will improve Outcome: Progressing Problem: Lack of Knowledge: Goal: Ability to state ways to decrease the risk of falls will improve Outcome: Progressing Problem: Safety: Goal: Will remain free from falls Outcome: Progressing Goal: Will remain free from injury from falls Outcome: Progressing Goal: Will remain free from falls and injury in home environment Outcome: Progressing Problem: Activity: Goal: Mobility will improve Outcome: Progressing Problem: Lack of Knowledge: Goal: Understanding of ways to prevent future skin breakdown will improve Outcome: Progressing Goal: Ability to identify appropriate dietary choices will improve Outcome: Progressing Problem: Nutritional: Goal: Dietary intake will improve Outcome: Progressing Goal: Ability to maintain a balanced intake and output will improve Outcome: Progressing Problem: Skin Integrity: Goal: Risk for impaired skin integrity will decrease Outcome: Progressing Goal: Ability to demonstrate warm and dry skin will improve Outcome: Progressing Goal: Circulation will improve to fullest extent possible Outcome: Progressing Problem: Cardiac: Goal: Ability to maintain an adequate cardiac output will improve Outcome: Progressing Goal: Hemodynamic stability will improve Outcome: Progressing Problem: Lack of Knowledge: Goal: Ability to state signs and symptoms to report to health care provider will improve Outcome: Progressing Goal: Knowledge of the prescribed therapeutic regimen will improve Outcome: Progressing Goal: Mental status will improve Outcome: Progressing Problem: Lack of Knowledge: Goal: Ability to develop a pain control plan will improve Outcome: Progressing Goal: Ability to identify pain intensity on a pain scale and rate it consistently will improve Outcome: Progressing Goal: Ability to notify healthcare provider of pain before it becomes unmanageable or unbearable will improve Outcome: Progressing Problem: Medication: Goal: Satisfaction with pain management regimen will improve Outcome: Progressing Problem: Sensory: Goal: Ability to identify factors that increase the pain will improve Outcome: Progressing Goal: Pain level will decrease Outcome: Progressing Problem: Activity: Goal: Ability to return to normal activity level will improve Outcome: Progressing Problem: Lack of Knowledge: Goal: Knowledge of the prescribed therapeutic regimen will improve Outcome: Progressing Problem: Coping: Goal: Ability to cope will improve Outcome: Progressing Problem: Health Behavior: Goal: Identification of resources available to assist in meeting health care needs will improve Outcome: Progressing Problem: Sensory: Goal: Pain level will decrease Outcome: Progressing Problem: Activity: Goal: Ability to tolerate increased activity will improve Outcome: Progressing Goal: Ability to participate in self-care as condition permits will improve Outcome: Progressing Problem: Cardiac: Goal: Ability to maintain an adequate cardiac output will improve Outcome: Progressing Goal: Will show no evidence of cardiac arrhythmias Outcome: Progressing Goal: Complications related to the disease process, condition or treatment will be avoided or minimized Outcome: Progressing Problem: Lack of Knowledge: Goal: Knowledge of disease or condition will improve Outcome: Progressing Goal: Knowledge of the prescribed therapeutic regimen will improve Outcome: Progressing Goal: Ability to identify and utilize available resources and services will improve Outcome: Progressing * [facility] - Kiesha Joiner RN - 03/11/2023 11:51 PM CDT Goals: Clinical Goals for the Shift: Patient will remain HDS. Summary: Problem: Health Behavior: Goal: Understanding of discharge needs will improve Outcome: Progressing Problem: Lack of Knowledge: Goal: Ability to state ways to decrease the risk of falls will improve Outcome: Progressing Problem: Safety: Goal: Will remain free from falls Outcome: Progressing Goal: Will remain free from injury from falls Outcome: Progressing Goal: Will remain free from falls and injury in home environment Outcome: Progressing Problem: Activity: Goal: Mobility will improve Outcome: Progressing Problem: Lack of Knowledge: Goal: Understanding of ways to prevent future skin breakdown will improve Outcome: Progressing Goal: Ability to identify appropriate dietary choices will improve Outcome: Progressing Problem: Nutritional: Goal: Dietary intake will improve Outcome: Progressing Goal: Ability to maintain a balanced intake and output will improve Outcome: Progressing Problem: Skin Integrity: Goal: Risk for impaired skin integrity will decrease Outcome: Progressing Goal: Ability to demonstrate warm and dry skin will improve Outcome: Progressing Goal: Circulation will improve to fullest extent possible Outcome: Progressing Problem: Cardiac: Goal: Ability to maintain an adequate cardiac output will improve Outcome: Progressing Goal: Hemodynamic stability will improve Outcome: Progressing Problem: Lack of Knowledge: Goal: Ability to state signs and symptoms to report to health care provider will improve Outcome: Progressing Goal: Knowledge of the prescribed therapeutic regimen will improve Outcome: Progressing Goal: Mental status will improve Outcome: Progressing Problem: Lack of Knowledge: Goal: Ability to develop a pain control plan will improve Outcome: Progressing Goal: Ability to identify pain intensity on a pain scale and rate it consistently will improve Outcome: Progressing Goal: Ability to notify healthcare provider of pain before it becomes unmanageable or unbearable will improve Outcome: Progressing Problem: Medication: Goal: Satisfaction with pain management regimen will improve Outcome: Progressing Problem: Sensory: Goal: Ability to identify factors that increase the pain will improve Outcome: Progressing Goal: Pain level will decrease Outcome: Progressing Problem: Activity: Goal: Ability to return to normal activity level will improve Outcome: Progressing Problem: Lack of Knowledge: Goal: Knowledge of the prescribed therapeutic regimen will improve Outcome: Progressing Problem: Coping: Goal: Ability to cope will improve Outcome: Progressing Problem: Health Behavior: Goal: Identification of resources available to assist in meeting health care needs will improve Outcome: Progressing Problem: Sensory: Goal: Pain level will decrease Outcome: Progressing Problem: Activity: Goal: Ability to tolerate increased activity will improve Outcome: Progressing Goal: Ability to participate in self-care as condition permits will improve Outcome: Progressing Problem: Cardiac: Goal: Ability to maintain an adequate cardiac output will improve Outcome: Progressing Goal: Will show no evidence of cardiac arrhythmias Outcome: Progressing Goal: Complications related to the disease process, condition or treatment will be avoided or minimized Outcome: Progressing Problem: Lack of Knowledge: Goal: Knowledge of disease or condition will improve Outcome: Progressing Goal: Knowledge of the prescribed therapeutic regimen will improve Outcome: Progressing Goal: Ability to identify and utilize available resources and services will improve Outcome: Progressing Problem: Coping: Goal: Level of anxiety will decrease Outcome: Progressing Problem: Safety: Goal: Ability to remain free from injury will improve Outcome: Progressing Goal: Will show no signs and symptoms of excessive bleeding Outcome: Progressing * Significant Event - Nallely Chaudhari MD PhD - 03/11/2023 12:46 PM CDT Infectious Diseases Team 4 update note Contacted by primary team that patient has been having significant nausea secondary to linezolid and are there alternative antibiotic options available for her? Chart reviewed again- In brief - this is a 77 year old lady admitted for A fib to an OSH on 02/11, and incidentally found to have 1/2 blood cultures positive at an outside hospital for MRSA on 02/15, several days after she was admitted. Rapidly cleared her bacteremia the next time it was checked on 02/17 Afebrile throughout her entire hospital course. She did have both a TTE and a HOOD with no vegetations noted. However, she does have some concern for possible septic emboli on her CT chest. She also has a uninvolved prosthetic knee. Overall picture isn't particularly convincing for endocarditis, but in the presence of prosthetic knee and CT changes on chest imaging recommended a 4 week course of a ntibiotic therapy. Initially on IV vancomycin and planned to complete 4 week course of antibiotic therapy but did havea mild CLAUDIA on that a little over 2 weeks into the course and so recommended completing the last week and a half with PO linezolid 600 mg BID as she was approaching discharge at that time and per her primary team setting up home IV antibiotics was going to be a challenge for her. Since last seen she has developed significant nausea on linezolid. She now has five days of antibiotic therapy remaining. Recommend completing the last five days with IV ceftaroline 400 mg BID if she is planned to remain in-house, or if she is otherwise ready for discharge and nausea improves and she is able to take in PO then she could transition to PO doxycycline 100 mg BID and go home on that with an end date for either antibiotic of 03/16/2023. Recommendations: - start IV ceftaroline 400 mg q 12 hours. End date of 03/16/2023 Nallely Chaudhari MD PhD Infectious Diseases * Plan of Care - Tanna Veliz RN - 03/11/2023 9:29 AM CDT Problem: Health Behavior: Goal: Understanding of discharge needs will improve Outcome: Progressing Problem: Lack of Knowledge: Goal: Ability to state ways to decrease the risk of falls will improve Outcome: Progressing Problem: Safety: Goal: Will remain free from falls Outcome: Progressing Goal: Will remain free from injury from falls Outcome: Progressing Goal: Will remain free from falls and injury in home environment Outcome: Progressing Problem: Activity: Goal: Mobility will improve Outcome: Progressing Problem: Lack of Knowledge: Goal: Understanding of ways to prevent future skin breakdown will improve Outcome: Progressing Goal: Ability to identify appropriate dietary choices will improve Outcome: Progressing Problem: Nutritional: Goal: Dietary intake will improve Outcome: Progressing Goal: Ability to maintain a balanced intake and output will improve Outcome: Progressing Problem: Skin Integrity: Goal: Risk for impaired skin integrity will decrease Outcome: Progressing Goal: Ability to demonstrate warm and dry skin will improve Outcome: Progressing Goal: Circulation will improve to fullest extent possible Outcome: Progressing Problem: Cardiac: Goal: Ability to maintain an adequate cardiac output will improve Outcome: Progressing Goal: Hemodynamic stability will improve Outcome: Progressing Problem: Lack of Knowledge: Goal: Ability to state signs and symptoms to report to health care provider will improve Outcome: Progressing Goal: Knowledge of the prescribed therapeutic regimen will improve Outcome: Progressing Goal: Mental status will improve Outcome: Progressing Problem: Lack of Knowledge: Goal: Ability to develop a pain control plan will improve Outcome: Progressing Goal: Ability to identify pain intensity on a pain scale and rate it consistently will improve Outcome: Progressing Goal: Ability to notify healthcare provider of pain before it becomes unmanageable or unbearable will improve Outcome: Progressing Problem: Medication: Goal: Satisfaction with pain management regimen will improve Outcome: Progressing Problem: Sensory: Goal: Ability to identify factors that increase the pain will improve Outcome: Progressing Goal: Pain level will decrease Outcome: Progressing Problem: Activity: Goal: Ability to return to normal activity level will improve Outcome: Progressing Problem: Lack of Knowledge: Goal: Knowledge of the prescribed therapeutic regimen will improve Outcome: Progressing Problem: Coping: Goal: Ability to cope will improve Outcome: Progressing Problem: Health Behavior: Goal: Identification of resources available to assist in meeting health care needs will improve Outcome: Progressing Problem: Sensory: Goal: Pain level will decrease Outcome: Progressing Problem: Activity: Goal: Ability to tolerate increased activity will improve Outcome: Progressing Goal: Ability to participate in self-care as condition permits will improve Outcome: Progressing Problem: Cardiac: Goal: Ability to maintain an adequate cardiac output will improve Outcome: Progressing Goal: Will show no evidence of cardiac arrhythmias Outcome: Progressing Goal: Complications related to the disease process, condition or treatment will be avoided or minimized Outcome: Progressing Problem: Lack of Knowledge: Goal: Knowledge of disease or condition will improve Outcome: Progressing Goal: Knowledge of the prescribed therapeutic regimen will improve Outcome: Progressing Goal: Ability to identify and utilize available resources and services will improve Outcome: Progressing Problem: Coping: Goal: Level of anxiety will decrease Outcome: Progressing Problem: Safety: Goal: Ability to remain free from injury will improve Outcome: Progressing Goal: Will show no signs and symptoms of excessive bleeding Outcome: Progressing Goals: Clinical Goals for the Shift: Patient will remain hemodynamically stable Summary: Patient c/o nausea. Patient dizzy. * Plan of Care - Kiesha Joiner RN - 03/11/2023 12:56 AM CDT Goals: Clinical Goals for the Shift: Patient will have resolved nausea Summary: Problem: Health Behavior: Goal: Understanding of discharge needs will improve Outcome: Progressing Problem: Lack of Knowledge: Goal: Ability to state ways to decrease the risk of falls will improve Outcome: Progressing Problem: Safety: Goal: Will remain free from falls Outcome: Progressing Goal: Will remain free from injury from falls Outcome: Progressing Goal: Will remain free from falls and injury in home environment Outcome: Progressing Problem: Activity: Goal: Mobility will improve Outcome: Progressing Problem: Lack of Knowledge: Goal: Understanding of ways to prevent future skin breakdown will improve Outcome: Progressing Goal: Ability to identify appropriate dietary choices will improve Outcome: Progressing Problem: Nutritional: Goal: Dietary intake will improve Outcome: Progressing Goal: Ability to maintain a balanced intake and output will improve Outcome: Progressing Problem: Skin Integrity: Goal: Risk for impaired skin integrity will decrease Outcome: Progressing Goal: Ability to demonstrate warm and dry skin will improve Outcome: Progressing Goal: Circulation will improve to fullest extent possible Outcome: Progressing Problem: Cardiac: Goal: Ability to maintain an adequate cardiac output will improve Outcome: Progressing Goal: Hemodynamic stability will improve Outcome: Progressing Problem: Lack of Knowledge: Goal: Ability to state signs and symptoms to report to health care provider will improve Outcome: Progressing Goal: Knowledge of the prescribed therapeutic regimen will improve Outcome: Progressing Goal: Mental status will improve Outcome: Progressing Problem: Lack of Knowledge: Goal: Ability to develop a pain control plan will improve Outcome: Progressing Goal: Ability to identify pain intensity on a pain scale and rate it consistently will improve Outcome: Progressing Goal: Ability to notify healthcare provider of pain before it becomes unmanageable or unbearable will improve Outcome: Progressing Problem: Medication: Goal: Satisfaction with pain management regimen will improve Outcome: Progressing Problem: Sensory: Goal: Ability to identify factors that increase the pain will improve Outcome: Progressing Goal: Pain level will decrease Outcome: Progressing Problem: Activity: Goal: Ability to return to normal activity level will improve Outcome: Progressing Problem: Lack of Knowledge: Goal: Knowledge of the prescribed therapeutic regimen will improve Outcome: Progressing Problem: Coping: Goal: Ability to cope will improve Outcome: Progressing Problem: Health Behavior: Goal: Identification of resources available to assist in meeting health care needs will improve Outcome: Progressing Problem: Sensory: Goal: Pain level will decrease Outcome: Progressing Problem: Activity: Goal: Ability to tolerate increased activity will improve Outcome: Progressing Goal: Ability to participate in self-care as condition permits will improve Outcome: Progressing Problem: Cardiac: Goal: Ability to maintain an adequate cardiac output will improve Outcome: Progressing Goal: Will show no evidence of cardiac arrhythmias Outcome: Progressing Goal: Complications related to the disease process, condition or treatment will be avoided or minimized Outcome: Progressing Problem: Lack of Knowledge: Goal: Knowledge of disease or condition will improve Outcome: Progressing Goal: Knowledge of the prescribed therapeutic regimen will improve Outcome: Progressing Goal: Ability to identify and utilize available resources and services will improve Outcome: Progressing Problem: Coping: Goal: Level of anxiety will decrease Outcome: Progressing Problem: Safety: Goal: Ability to remain free from injury will improve Outcome: Progressing Goal: Will show no signs and symptoms of excessive bleeding Outcome: Progressing * [facility] - Tanna Veliz RN - 03/10/2023 9:50 AM CDT Problem: Health Behavior: Goal: Understanding of discharge needs will improve Outcome: Progressing Problem: Lack of Knowledge: Goal: Ability to state ways to decrease the risk of falls will improve Outcome: Progressing Problem: Safety: Goal: Will remain free from falls Outcome: Progressing Goal: Will remain free from injury from falls Outcome: Progressing Goal: Will remain free from falls and injury in home environment Outcome: Progressing Problem: Activity: Goal: Mobility will improve Outcome: Progressing Problem: Lack of Knowledge: Goal: Understanding of ways to prevent future skin breakdown will improve Outcome: Progressing Goal: Ability to identify appropriate dietary choices will improve Outcome: Progressing Problem: Nutritional: Goal: Dietary intake will improve Outcome: Progressing Goal: Ability to maintain a balanced intake and output will improve Outcome: Progressing Problem: Skin Integrity: Goal: Risk for impaired skin integrity will decrease Outcome: Progressing Goal: Ability to demonstrate warm and dry skin will improve Outcome: Progressing Goal: Circulation will improve to fullest extent possible Outcome: Progressing Problem: Cardiac: Goal: Ability to maintain an adequate cardiac output will improve Outcome: Progressing Goal: Hemodynamic stability will improve Outcome: Progressing Problem: Lack of Knowledge: Goal: Ability to state signs and symptoms to report to health care provider will improve Outcome: Progressing Goal: Knowledge of the prescribed therapeutic regimen will improve Outcome: Progressing Goal: Mental status will improve Outcome: Progressing Problem: Lack of Knowledge: Goal: Ability to develop a pain control plan will improve Outcome: Progressing Goal: Ability to identify pain intensity on a pain scale and rate it consistently will improve Outcome: Progressing Goal: Ability to notify healthcare provider of pain before it becomes unmanageable or unbearable will improve Outcome: Progressing Problem: Medication: Goal: Satisfaction with pain management regimen will improve Outcome: Progressing Problem: Sensory: Goal: Ability to identify factors that increase the pain will improve Outcome: Progressing Goal: Pain level will decrease Outcome: Progressing Problem: Activity: Goal: Ability to return to normal activity level will improve Outcome: Progressing Problem: Lack of Knowledge: Goal: Knowledge of the prescribed therapeutic regimen will improve Outcome: Progressing Problem: Coping: Goal: Ability to cope will improve Outcome: Progressing Problem: Health Behavior: Goal: Identification of resources available to assist in meeting health care needs will improve Outcome: Progressing Problem: Sensory: Goal: Pain level will decrease Outcome: Progressing Problem: Activity: Goal: Ability to tolerate increased activity will improve Outcome: Progressing Goal: Ability to participate in self-care as condition permits will improve Outcome: Progressing Problem: Cardiac: Goal: Ability to maintain an adequate cardiac output will improve Outcome: Progressing Goal: Will show no evidence of cardiac arrhythmias Outcome: Progressing Goal: Complications related to the disease process, condition or treatment will be avoided or minimized Outcome: Progressing Problem: Lack of Knowledge: Goal: Knowledge of disease or condition will improve Outcome: Progressing Goal: Knowledge of the prescribed therapeutic regimen will improve Outcome: Progressing Goal: Ability to identify and utilize available resources and services will improve Outcome: Progressing Problem: Coping: Goal: Level of anxiety will decrease Outcome: Progressing Problem: Safety: Goal: Ability to remain free from injury will improve Outcome: Progressing Goal: Will show no signs and symptoms of excessive bleeding Outcome: Progressing Goals: Clinical Goals for the Shift: Patient will remain hemodynamically stable Summary: Patient c/o nausea and dizziness. MCDANIELS at times. Zofran given for nausea. * Plan of Care - Amaury Lion RN - 03/09/2023 9:23 PM CDT Goals: Clinical Goals for the Shift: Pt will remain HDS Summary: Problem: Health Behavior: Goal: Understanding of discharge needs will improve Outcome: Progressing Problem: Lack of Knowledge: Goal: Ability to state ways to decrease the risk of falls will improve Outcome: Progressing Problem: Safety: Goal: Will remain free from falls Outcome: Progressing Goal: Will remain free from injury from falls Outcome: Progressing Goal: Will remain free from falls and injury in home environment Outcome: Progressing Problem: Activity: Goal: Mobility will improve Outcome: Progressing Problem: Lack of Knowledge: Goal: Understanding of ways to prevent future skin breakdown will improve Outcome: Progressing Goal: Ability to identify appropriate dietary choices will improve Outcome: Progressing POC ongoing. * [facility] - Tanna Veliz RN - 03/09/2023 11:07 AM CDT Problem: Health Behavior: Goal: Understanding of discharge needs will improve Outcome: Progressing Problem: Lack of Knowledge: Goal: Ability to state ways to decrease the risk of falls will improve Outcome: Progressing Problem: Safety: Goal: Will remain free from falls Outcome: Progressing Goal: Will remain free from injury from falls Outcome: Progressing Goal: Will remain free from falls and injury in home environment Outcome: Progressing Problem: Activity: Goal: Mobility will improve Outcome: Progressing Problem: Lack of Knowledge: Goal: Understanding of ways to prevent future skin breakdown will improve Outcome: Progressing Goal: Ability to identify appropriate dietary choices will improve Outcome: Progressing Problem: Nutritional: Goal: Dietary intake will improve Outcome: Progressing Goal: Ability to maintain a balanced intake and output will improve Outcome: Progressing Problem: Skin Integrity: Goal: Risk for impaired skin integrity will decrease Outcome: Progressing Goal: Ability to demonstrate warm and dry skin will improve Outcome: Progressing Goal: Circulation will improve to fullest extent possible Outcome: Progressing Problem: Cardiac: Goal: Ability to maintain an adequate cardiac output will improve Outcome: Progressing Goal: Hemodynamic stability will improve Outcome: Progressing Problem: Lack of Knowledge: Goal: Ability to state signs and symptoms to report to health care provider will improve Outcome: Progressing Goal: Knowledge of the prescribed therapeutic regimen will improve Outcome: Progressing Goal: Mental status will improve Outcome: Progressing Problem: Lack of Knowledge: Goal: Ability to develop a pain control plan will improve Outcome: Progressing Goal: Ability to identify pain intensity on a pain scale and rate it consistently will improve Outcome: Progressing Goal: Ability to notify healthcare provider of pain before it becomes unmanageable or unbearable will improve Outcome: Progressing Problem: Medication: Goal: Satisfaction with pain management regimen will improve Outcome: Progressing Problem: Sensory: Goal: Ability to identify factors that increase the pain will improve Outcome: Progressing Goal: Pain level will decrease Outcome: Progressing Problem: Activity: Goal: Ability to return to normal activity level will improve Outcome: Progressing Problem: Lack of Knowledge: Goal: Knowledge of the prescribed therapeutic regimen will improve Outcome: Progressing Problem: Coping: Goal: Ability to cope will improve Outcome: Progressing Problem: Health Behavior: Goal: Identification of resources available to assist in meeting health care needs will improve Outcome: Progressing Problem: Sensory: Goal: Pain level will decrease Outcome: Progressing Problem: Activity: Goal: Ability to tolerate increased activity will improve Outcome: Progressing Goal: Ability to participate in self-care as condition permits will improve Outcome: Progressing Problem: Cardiac: Goal: Ability to maintain an adequate cardiac output will improve Outcome: Progressing Goal: Will show no evidence of cardiac arrhythmias Outcome: Progressing Goal: Complications related to the disease process, condition or treatment will be avoided or minimized Outcome: Progressing Problem: Lack of Knowledge: Goal: Knowledge of disease or condition will improve Outcome: Progressing Goal: Knowledge of the prescribed therapeutic regimen will improve Outcome: Progressing Goal: Ability to identify and utilize available resources and services will improve Outcome: Progressing Problem: Coping: Goal: Level of anxiety will decrease Outcome: Progressing Problem: Safety: Goal: Ability to remain free from injury will improve Outcome: Progressing Goal: Will show no signs and symptoms of excessive bleeding Outcome: Progressing Goals: Clinical Goals for the Shift: Patient will remain hemodynamically stable Summary: Orthostatics completed today. Denies any pain. Resting in bed. * Consults, Subsequent - Ric Abraham MD - 03/09/2023 8:47 AM CDT NEUROLOGY BRIEF UPDATE/SIGN OFF NOTE Interval History/Subjective: Patient received a brain MRI on 03/07, which was revealing for no acute intracranial abnormality. 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 Per primary team, she continues to have dizziness that is not responsive to half a tablet of meclizine. Her dizziness continues to be episodic and intermittent. Objective: Vitals: 03/09/23 0805 BP: 116/58 Pulse: 64 Resp: 17 Temp: 36.9 ??C (98.4 ??F) SpO2: 97% A/P: Tiera Lobato is a 77 y.o. female with a history of pAF, Apical variant HCM, CAD with OR in 2012 s/p CABG with LAWSON to LAD and SVG to OM, HTN, prior DVT who presents as an OSH transfer for AFibwith RVR complicated by hemodynamic instability s/p cardioversion on 02/23 and currently rate controlled on oral dig/metop. Her hospital course has been complicated by MRSA bacteremia, septic PE, and CLAUDIA. Neurology has been consulted for dizziness and vertigo that has been present since 03/01. Her vertigo is concerning for a peripheral etiology given episodic events with possible triggers (head turning and standing). I suspect a contribution of a peripheral vertigo with cardiovascular/orthostasis as the etiology (her most recent orthostatic vital signs were positive, as well as bradycardia and vagal symptoms present). Her brain MRI was not revealing for a neurological etiology. Given her vertigo continues to be intermittent, recommend trying meclizine for symptomatic relief. Recommendations: # Peripheral vertigo Can try meclizine 25 mg q6 PRN for symptomatic treatment. Rest of cardiovascular and orthostasis management per primary team. The patient will not require dedicated neurologic follow-up The neurology consult service will sign off at this time. Please call the neurology consult phone at [phone] (Senior) with questions. * Plan of Care - Amaury Lion RN - 03/08/2023 10:53 PM CDT Goals: Clinical Goals for the Shift: Pt will remain HDS Summary: Problem: Health Behavior: Goal: Understanding of discharge needs will improve Outcome: Progressing Problem: Lack of Knowledge: Goal: Ability to state ways to decrease the risk of falls will improve Outcome: Progressing Problem: Safety: Goal: Will remain free from falls Outcome: Progressing Goal: Will remain free from injury from falls Outcome: Progressing Poc ongoiong * Plan of Care - Tanna Veliz RN - 03/08/2023 11:32 AM CDT Problem: Health Behavior: Goal: Understanding of discharge needs will improve Outcome: Progressing Problem: Lack of Knowledge: Goal: Ability to state ways to decrease the risk of falls will improve Outcome: Progressing Problem: Safety: Goal: Will remain free from falls Outcome: Progressing Goal: Will remain free from injury from falls Outcome: Progressing Goal: Will remain free from falls and injury in home environment Outcome: Progressing Problem: Activity: Goal: Mobility will improve Outcome: Progressing Problem: Lack of Knowledge: Goal: Understanding of ways to prevent future skin breakdown will improve Outcome: Progressing Goal: Ability to identify appropriate dietary choices will improve Outcome: Progressing Problem: Nutritional: Goal: Dietary intake will improve Outcome: Progressing Goal: Ability to maintain a balanced intake and output will improve Outcome: Progressing Problem: Skin Integrity: Goal: Risk for impaired skin integrity will decrease Outcome: Progressing Goal: Ability to demonstrate warm and dry skin will improve Outcome: Progressing Goal: Circulation will improve to fullest extent possible Outcome: Progressing Problem: Cardiac: Goal: Ability to maintain an adequate cardiac output will improve Outcome: Progressing Goal: Hemodynamic stability will improve Outcome: Progressing Problem: Lack of Knowledge: Goal: Ability to state signs and symptoms to report to health care provider will improve Outcome: Progressing Goal: Knowledge of the prescribed therapeutic regimen will improve Outcome: Progressing Goal: Mental status will improve Outcome: Progressing Problem: Lack of Knowledge: Goal: Ability to develop a pain control plan will improve Outcome: Progressing Goal: Ability to identify pain intensity on a pain scale and rate it consistently will improve Outcome: Progressing Goal: Ability to notify healthcare provider of pain before it becomes unmanageable or unbearable will improve Outcome: Progressing Problem: Medication: Goal: Satisfaction with pain management regimen will improve Outcome: Progressing Problem: Sensory: Goal: Ability to identify factors that increase the pain will improve Outcome: Progressing Goal: Pain level will decrease Outcome: Progressing Problem: Activity: Goal: Ability to return to normal activity level will improve Outcome: Progressing Problem: Lack of Knowledge: Goal: Knowledge of the prescribed therapeutic regimen will improve Outcome: Progressing Problem: Coping: Goal: Ability to cope will improve Outcome: Progressing Problem: Health Behavior: Goal: Identification of resources available to assist in meeting health care needs will improve Outcome: Progressing Problem: Sensory: Goal: Pain level will decrease Outcome: Progressing Problem: Activity: Goal: Ability to tolerate increased activity will improve Outcome: Progressing Goal: Ability to participate in self-care as condition permits will improve Outcome: Progressing Problem: Cardiac: Goal: Ability to maintain an adequate cardiac output will improve Outcome: Progressing Goal: Will show no evidence of cardiac arrhythmias Outcome: Progressing Goal: Complications related to the disease process, condition or treatment will be avoided or minimized Outcome: Progressing Problem: Lack of Knowledge: Goal: Knowledge of disease or condition will improve Outcome: Progressing Goal: Knowledge of the prescribed therapeutic regimen will improve Outcome: Progressing Goal: Ability to identify and utilize available resources and services will improve Outcome: Progressing Problem: Coping: Goal: Level of anxiety will decrease Outcome: Progressing Problem: Safety: Goal: Ability to remain free from injury will improve Outcome: Progressing Goal: Will show no signs and symptoms of excessive bleeding Outcome: Progressing Goals: Clinical Goals for the Shift: Patient will remain hemodynamically stable Summary: Patient denies any pain. No distress noted. * Plan of Care - Amaury Lion RN - 03/07/2023 11:55 PM CDT Goals: Clinical Goals for the Shift: Pt will remain HDS Summary: Problem: Health Behavior: Goal: Understanding of discharge needs will improve Outcome: Progressing Problem: Lack of Knowledge: Goal: Ability to state ways to decrease the risk of falls will improve Outcome: Progressing Problem: Safety: Goal: Will remain free from falls Outcome: Progressing Goal: Will remain free from injury from falls Outcome: Progressing Goal: Will remain free from falls and injury in home environment Outcome: Progressing Problem: Activity: Goal: Mobility will improve Outcome: Progressing Problem: Lack of Knowledge: Goal: Understanding of ways to prevent future skin breakdown will improve Outcome: Progressing Goal: Ability to identify appropriate dietary choices will improve Outcome: Progressing Problem: Nutritional: Goal: Dietary intake will improve Outcome: Progressing POC ongoing * Plan of Care - Baylee Burkett RN - 03/07/2023 3:08 PM CDT Per Medical Chart/Rounds/IDR: Adjusting patient medications. No plans for weekend discharge. ADD: 03/10 Plan & referrals made/in place: Patient accepted at [facility]. Need insurance auth - notstarted yet. Support following discharge: Facility staff and family Transportation: EMS Patient's Identified Problem/Goal Problem: Ensure acute medical needs are met and that patient has a safe discharge plan. Goal: Secure a discharge plan that patient/family are agreeable with and ensure patient has continuum of care. Patient and/or family are agreeable with plan. science manager will continue to follow and assist with discharge planning as needed. If any further discharge needs arise, please contact the covering cyanide case hardener. * Plan of Care - Isela Moreno RN - 03/07/2023 12:50 PM CDT Problem: Health Behavior: Goal: Understanding of discharge needs will improve Outcome: Progressing Problem: Lack of Knowledge: Goal: Ability to state ways to decrease the risk of falls will improve Outcome: Progressing Problem: Safety: Goal: Will remain free from falls Outcome: Progressing Goal: Will remain free from injury from falls Outcome: Progressing Goal: Will remain free from falls and injury in home environment Outcome: Progressing Problem: Activity: Goal: Mobility will improve Outcome: Progressing Problem: Lack of Knowledge: Goal: Understanding of ways to prevent future skin breakdown will improve Outcome: Progressing Goal: Ability to identify appropriate dietary choices will improve Outcome: Progressing Problem: Nutritional: Goal: Dietary intake will improve Outcome: Progressing Goal: Ability to maintain a balanced intake and output will improve Outcome: Progressing Problem: Skin Integrity: Goal: Risk for impaired skin integrity will decrease Outcome: Progressing Goal: Ability to demonstrate warm and dry skin will improve Outcome: Progressing Goal: Circulation will improve to fullest extent possible Outcome: Progressing Problem: Cardiac: Goal: Ability to maintain an adequate cardiac output will improve Outcome: Progressing Goal: Hemodynamic stability will improve Outcome: Progressing Problem: Lack of Knowledge: Goal: Ability to state signs and symptoms to report to health care provider will improve Outcome: Progressing Goal: Knowledge of the prescribed therapeutic regimen will improve Outcome: Progressing Goal: Mental status will improve Outcome: Progressing Problem: Lack of Knowledge: Goal: Ability to develop a pain control plan will improve Outcome: Progressing Goal: Ability to identify pain intensity on a pain scale and rate it consistently will improve Outcome: Progressing Goal: Ability to notify healthcare provider of pain before it becomes unmanageable or unbearable will improve Outcome: Progressing Problem: Medication: Goal: Satisfaction with pain management regimen will improve Outcome: Progressing Problem: Sensory: Goal: Ability to identify factors that increase the pain will improve Outcome: Progressing Goal: Pain level will decrease Outcome: Progressing Problem: Activity: Goal: Ability to return to normal activity level will improve Outcome: Progressing Problem: Lack of Knowledge: Goal: Knowledge of the prescribed therapeutic regimen will improve Outcome: Progressing Problem: Coping: Goal: Ability to cope will improve Outcome: Progressing Problem: Health Behavior: Goal: Identification of resources available to assist in meeting health care needs will improve Outcome: Progressing Problem: Sensory: Goal: Pain level will decrease Outcome: Progressing Problem: Activity: Goal: Ability to tolerate increased activity will improve Outcome: Progressing Goal: Ability to participate in self-care as condition permits will improve Outcome: Progressing Problem: Cardiac: Goal: Ability to maintain an adequate cardiac output will improve Outcome: Progressing Goal: Will show no evidence of cardiac arrhythmias Outcome: Progressing Goal: Complications related to the disease process, condition or treatment will be avoided or minimized Outcome: Progressing Problem: Lack of Knowledge: Goal: Knowledge of disease or condition will improve Outcome: Progressing Goal: Knowledge of the prescribed therapeutic regimen will improve Outcome: Progressing Goal: Ability to identify and utilize available resources and services will improve Outcome: Progressing Problem: Coping: Goal: Level of anxiety will decrease Outcome: Progressing Problem: Safety: Goal: Ability to remain free from injury will improve Outcome: Progressing Goal: Will show no signs and symptoms of excessive bleeding Outcome: Progressing Goals: Clinical Goals for the Shift: remain HDS Summary: Patient agrees with the plan of care * Plan of Care - Jayson Valdovinos RN - 03/06/2023 10:56 PM CDT Problem: Health Behavior: Goal: Understanding of discharge needs will improve Outcome: Progressing Problem: Lack of Knowledge: Goal: Ability to state ways to decrease the risk of falls will improve Outcome: Progressing Problem: Safety: Goal: Will remain free from falls Outcome: Progressing Goal: Will remain free from injury from falls Outcome: Progressing Goal: Will remain free from falls and injury in home environment Outcome: Progressing Problem: Activity: Goal: Mobility will improve Outcome: Progressing Problem: Lack of Knowledge: Goal: Understanding of ways to prevent future skin breakdown will improve Outcome: Progressing Goal: Ability to identify appropriate dietary choices will improve Outcome: Progressing Problem: Nutritional: Goal: Dietary intake will improve Outcome: Progressing Goal: Ability to maintain a balanced intake and output will improve Outcome: Progressing Problem: Skin Integrity: Goal: Risk for impaired skin integrity will decrease Outcome: Progressing Goal: Ability to demonstrate warm and dry skin will improve Outcome: Progressing Goal: Circulation will improve to fullest extent possible Outcome: Progressing Problem: Cardiac: Goal: Ability to maintain an adequate cardiac output will improve Outcome: Progressing Goal: Hemodynamic stability will improve Outcome: Progressing Problem: Lack of Knowledge: Goal: Ability to state signs and symptoms to report to health care provider will improve Outcome: Progressing Goal: Knowledge of the prescribed therapeutic regimen will improve Outcome: Progressing Goal: Mental status will improve Outcome: Progressing Problem: Lack of Knowledge: Goal: Ability to develop a pain control plan will improve Outcome: Progressing Goal: Ability to identify pain intensity on a pain scale and rate it consistently will improve Outcome: Progressing Goal: Ability to notify healthcare provider of pain before it becomes unmanageable or unbearable will improve Outcome: Progressing Problem: Medication: Goal: Satisfaction with pain management regimen will improve Outcome: Progressing Problem: Sensory: Goal: Ability to identify factors that increase the pain will improve Outcome: Progressing Goal: Pain level will decrease Outcome: Progressing Problem: Activity: Goal: Ability to return to normal activity level will improve Outcome: Progressing Problem: Lack of Knowledge: Goal: Knowledge of the prescribed therapeutic regimen will improve Outcome: Progressing Problem: Coping: Goal: Ability to cope will improve Outcome: Progressing Problem: Health Behavior: Goal: Identification of resources available to assist in meeting health care needs will improve Outcome: Progressing Problem: Sensory: Goal: Pain level will decrease Outcome: Progressing Problem: Activity: Goal: Ability to tolerate increased activity will improve Outcome: Progressing Goal: Ability to participate in self-care as condition permits will improve Outcome: Progressing Problem: Cardiac: Goal: Ability to maintain an adequate cardiac output will improve Outcome: Progressing Goal: Will show no evidence of cardiac arrhythmias Outcome: Progressing Goal: Complications related to the disease process, condition or treatment will be avoided or minimized Outcome: Progressing Problem: Lack of Knowledge: Goal: Knowledge of disease or condition will improve Outcome: Progressing Goal: Knowledge of the prescribed therapeutic regimen will improve Outcome: Progressing Goal: Ability to identify and utilize available resources and services will improve Outcome: Progressing Problem: Coping: Goal: Level of anxiety will decrease Outcome: Progressing Problem: Safety: Goal: Ability to remain free from injury will improve Outcome: Progressing Goal: Will show no signs and symptoms of excessive bleeding Outcome: Progressing Goals: Clinical Goals for the Shift: remain HDS Summary: on bed restingm, not in distress, continuing with plan of care. * Plan of Care - Baylee Burkett RN - 03/06/2023 3:44 PM CDT CM received phone call from Ban ([phone]) at [facility] who stated [employer] denied the appeal. science manager met with the patient at bedside to update on appeal decision and to work on a potential discharge disposition plan. [employer] provided education to patient on detention facilities and the rehabilitation process. Patient reported she was interested in short term SNF placement for rehabilitation. science manager provided a list of SNF to patient. Patient asked for multiplereferrals to be sent: [facility] - Accepted [facility] - Out of [facility] - Out [facility] - Accepted [facility] - Accepted *Patient choice* science manager sent out referrals via [facility]. CM awaiting acceptance at a SNF and will continue to workon discharge planning with patient and family. * Plan of Care - Baylee Munoz RN - 03/06/2023 10:42 AM CDT Goals: Clinical Goals for the Shift: Pt will remain hds Summary: Pt will remain HDS and free of falls throughout shift. Problem: Health Behavior: Goal: Understanding of discharge needs will improve Outcome: Progressing Problem: Lack of Knowledge: Goal: Ability to state ways to decrease the risk of falls will improve Outcome: Progressing Problem: Safety: Goal: Will remain free from falls Outcome: Progressing Goal: Will remain free from injury from falls Outcome: Progressing Goal: Will remain free from falls and injury in home environment Outcome: Progressing Problem: Activity: Goal: Mobility will improve Outcome: Progressing Problem: Lack of Knowledge: Goal: Understanding of ways to prevent future skin breakdown will improve Outcome: Progressing Goal: Ability to identify appropriate dietary choices will improve Outcome: Progressing Problem: Nutritional: Goal: Dietary intake will improve Outcome: Progressing Goal: Ability to maintain a balanced intake and output will improve Outcome: Progressing Problem: Skin Integrity: Goal: Risk for impaired skin integrity will decrease Outcome: Progressing Goal: Ability to demonstrate warm and dry skin will improve Outcome: Progressing Goal: Circulation will improve to fullest extent possible Outcome: Progressing Problem: Cardiac: Goal: Ability to maintain an adequate cardiac output will improve Outcome: Progressing Goal: Hemodynamic stability will improve Outcome: Progressing Problem: Lack of Knowledge: Goal: Ability to state signs and symptoms to report to health care provider will improve Outcome: Progressing Goal: Knowledge of the prescribed therapeutic regimen will improve Outcome: Progressing Goal: Mental status will improve Outcome: Progressing Problem: Lack of Knowledge: Goal: Ability to develop a pain control plan will improve Outcome: Progressing Goal: Ability to identify pain intensity on a pain scale and rate it consistently will improve Outcome: Progressing Goal: Ability to notify healthcare provider of pain before it becomes unmanageable or unbearable will improve Outcome: Progressing Problem: Medication: Goal: Satisfaction with pain management regimen will improve Outcome: Progressing Problem: Sensory: Goal: Ability to identify factors that increase the pain will improve Outcome: Progressing Goal: Pain level will decrease Outcome: Progressing Problem: Activity: Goal: Ability to return to normal activity level will improve Outcome: Progressing Problem: Lack of Knowledge: Goal: Knowledge of the prescribed therapeutic regimen will improve Outcome: Progressing Problem: Coping: Goal: Ability to cope will improve Outcome: Progressing Problem: Health Behavior: Goal: Identification of resources available to assist in meeting health care needs will improve Outcome: Progressing Problem: Sensory: Goal: Pain level will decrease Outcome: Progressing Problem: Activity: Goal: Ability to tolerate increased activity will improve Outcome: Progressing Goal: Ability to participate in self-care as condition permits will improve Outcome: Progressing Problem: Cardiac: Goal: Ability to maintain an adequate cardiac output will improve Outcome: Progressing Goal: Will show no evidence of cardiac arrhythmias Outcome: Progressing Goal: Complications related to the disease process, condition or treatment will be avoided or minimized Outcome: Progressing Problem: Lack of Knowledge: Goal: Knowledge of disease or condition will improve Outcome: Progressing Goal: Knowledge of the prescribed therapeutic regimen will improve Outcome: Progressing Goal: Ability to identify and utilize available resources and services will improve Outcome: Progressing Problem: Coping: Goal: Level of anxiety will decrease Outcome: Progressing Problem: Safety: Goal: Ability to remain free from injury will improve Outcome: Progressing Goal: Will show no signs and symptoms of excessive bleeding Outcome: Progressing * Plan of Care - Jeimy Garcia RN - 03/05/2023 10:05 PM CDT Goals: Clinical Goals for the Shift: Pt will remain hds Summary: Patient participating in care plan goals. Patient verbalized education and is progressing towards goals. Problem: Health Behavior: Goal: Understanding of discharge needs will improve Outcome: Progressing Problem: Lack of Knowledge: Goal: Ability to state ways to decrease the risk of falls will improve Outcome: Progressing Problem: Safety: Goal: Will remain free from falls Outcome: Progressing Goal: Will remain free from injury from falls Outcome: Progressing Goal: Will remain free from falls and injury in home environment Outcome: Progressing Problem: Activity: Goal: Mobility will improve Outcome: Progressing Problem: Lack of Knowledge: Goal: Understanding of ways to prevent future skin breakdown will improve Outcome: Progressing Goal: Ability to identify appropriate dietary choices will improve Outcome: Progressing Problem: Nutritional: Goal: Dietary intake will improve Outcome: Progressing Goal: Ability to maintain a balanced intake and output will improve Outcome: Progressing Problem: Skin Integrity: Goal: Risk for impaired skin integrity will decrease Outcome: Progressing Goal: Ability to demonstrate warm and dry skin will improve Outcome: Progressing Goal: Circulation will improve to fullest extent possible Outcome: Progressing Problem: Cardiac: Goal: Ability to maintain an adequate cardiac output will improve Outcome: Progressing Goal: Hemodynamic stability will improve Outcome: Progressing Problem: Lack of Knowledge: Goal: Ability to state signs and symptoms to report to health care provider will improve Outcome: Progressing Goal: Knowledge of the prescribed therapeutic regimen will improve Outcome: Progressing Goal: Mental status will improve Outcome: Progressing Problem: Lack of Knowledge: Goal: Ability to develop a pain control plan will improve Outcome: Progressing Goal: Ability to identify pain intensity on a pain scale and rate it consistently will improve Outcome: Progressing Goal: Ability to notify healthcare provider of pain before it becomes unmanageable or unbearable will improve Outcome: Progressing Problem: Medication: Goal: Satisfaction with pain management regimen will improve Outcome: Progressing Problem: Sensory: Goal: Ability to identify factors that increase the pain will improve Outcome: Progressing Goal: Pain level will decrease Outcome: Progressing Problem: Activity: Goal: Ability to return to normal activity level will improve Outcome: Progressing Problem: Lack of Knowledge: Goal: Knowledge of the prescribed therapeutic regimen will improve Outcome: Progressing Problem: Coping: Goal: Ability to cope will improve Outcome: Progressing Problem: Health Behavior: Goal: Identification of resources available to assist in meeting health care needs will improve Outcome: Progressing Problem: Sensory: Goal: Pain level will decrease Outcome: Progressing Problem: Activity: Goal: Ability to tolerate increased activity will improve Outcome: Progressing Goal: Ability to participate in self-care as condition permits will improve Outcome: Progressing Problem: Cardiac: Goal: Ability to maintain an adequate cardiac output will improve Outcome: Progressing Goal: Will show no evidence of cardiac arrhythmias Outcome: Progressing Goal: Complications related to the disease process, condition or treatment will be avoided or minimized Outcome: Progressing Problem: Lack of Knowledge: Goal: Knowledge of disease or condition will improve Outcome: Progressing Goal: Knowledge of the prescribed therapeutic regimen will improve Outcome: Progressing Goal: Ability to identify and utilize available resources and services will improve Outcome: Progressing Problem: Coping: Goal: Level of anxiety will decrease Outcome: Progressing Problem: Safety: Goal: Ability to remain free from injury will improve Outcome: Progressing Goal: Will show no signs and symptoms of excessive bleeding Outcome: Progressing * Plan of Emerita - Karen Ventura RN - 03/05/2023 9:53 AM CDT Problem: Health Behavior: Goal: Understanding of discharge needs will improve Outcome: Progressing Problem: Lack of Knowledge: Goal: Ability to state ways to decrease the risk of falls will improve Outcome: Progressing Problem: Safety: Goal: Will remain free from falls Outcome: Progressing Goal: Will remain free from injury from falls Outcome: Progressing Goal: Will remain free from falls and injury in home environment Outcome: Progressing Problem: Activity: Goal: Mobility will improve Outcome: Progressing Problem: Lack of Knowledge: Goal: Understanding of ways to prevent future skin breakdown will improve Outcome: Progressing Goal: Ability to identify appropriate dietary choices will improve Outcome: Progressing Problem: Nutritional: Goal: Dietary intake will improve Outcome: Progressing Goal: Ability to maintain a balanced intake and output will improve Outcome: Progressing Problem: Skin Integrity: Goal: Risk for impaired skin integrity will decrease Outcome: Progressing Goal: Ability to demonstrate warm and dry skin will improve Outcome: Progressing Goal: Circulation will improve to fullest extent possible Outcome: Progressing Problem: Cardiac: Goal: Ability to maintain an adequate cardiac output will improve Outcome: Progressing Goal: Hemodynamic stability will improve Outcome: Progressing Problem: Lack of Knowledge: Goal: Ability to state signs and symptoms to report to health care provider will improve Outcome: Progressing Goal: Knowledge of the prescribed therapeutic regimen will improve Outcome: Progressing Goal: Mental status will improve Outcome: Progressing Problem: Lack of Knowledge: Goal: Ability to develop a pain control plan will improve Outcome: Progressing Goal: Ability to identify pain intensity on a pain scale and rate it consistently will improve Outcome: Progressing Goal: Ability to notify healthcare provider of pain before it becomes unmanageable or unbearable will improve Outcome: Progressing Problem: Medication: Goal: Satisfaction with pain management regimen will improve Outcome: Progressing Problem: Sensory: Goal: Ability to identify factors that increase the pain will improve Outcome: Progressing Goal: Pain level will decrease Outcome: Progressing Problem: Activity: Goal: Ability to return to normal activity level will improve Outcome: Progressing Problem: Lack of Knowledge: Goal: Knowledge of the prescribed therapeutic regimen will improve Outcome: Progressing Problem: Coping: Goal: Ability to cope will improve Outcome: Progressing Problem: Health Behavior: Goal: Identification of resources available to assist in meeting health care needs will improve Outcome: Progressing Problem: Sensory: Goal: Pain level will decrease Outcome: Progressing Problem: Activity: Goal: Ability to tolerate increased activity will improve Outcome: Progressing Goal: Ability to participate in self-care as condition permits will improve Outcome: Progressing Problem: Cardiac: Goal: Ability to maintain an adequate cardiac output will improve Outcome: Progressing Goal: Will show no evidence of cardiac arrhythmias Outcome: Progressing Goal: Complications related to the disease process, condition or treatment will be avoided or minimized Outcome: Progressing Problem: Lack of Knowledge: Goal: Knowledge of disease or condition will improve Outcome: Progressing Goal: Knowledge of the prescribed therapeutic regimen will improve Outcome: Progressing Goal: Ability to identify and utilize available resources and services will improve Outcome: Progressing Problem: Coping: Goal: Level of anxiety will decrease Outcome: Progressing Problem: Safety: Goal: Ability to remain free from injury will improve Outcome: Progressing Goal: Will show no signs and symptoms of excessive bleeding Outcome: Progressing Goals: Clinical Goals for the Shift: pt josh remain HDS Summary: pt will remain HDS * Plan of Care - Baylee Burkett RN - 03/05/2023 9:13 AM CDT CM received phone call from Ban ([phone]) at [facility] who stated [employer] denied the appeal. science manager met with the patient at bedside to update on appeal decision and to work on a potential discharge disposition plan. [employer] provided education to patient on detention facilities and the rehabilitation process. Patient reported she was interested in short term SNF placement for rehabilitation. science manager provided a list of SNF to patient. Patient asked for multiplereferrals to be sent: [facility] - Out of [facility] - Out of [facility] - [place] science manager sent out referrals via [facility]. CM awaiting acceptance at a SNF and will continue to workon discharge planning with patient and family. * [facility] Note - Baylee Burkett RN - 03/05/2023 9:09 AM CDT Images from the original note were not included. Patient Information: OT Eval and Treat Last 72 Hours OT Evaluation No documentation. OT Treatment Row Name 03/04/23 0940 02/28/2344 Session Type Treatment -MR Treatment -KT OT Received On 03/04/23 -MR 02/28/23 -KT Safe Environment Arm band checked -MR Arm band checked;Patient found in supine;Session completed bedside;Gait belt utilized for all out of bed mobility -KT Subjective Agreeable to Therapy -MR Agreeable to Therapy -KT Subjective Comment -- Patient states the last time she got up with therapy she used a quad cane, but she prefers the platform wheeled walker as that makes her feel more confident and steady. Patient verbalized understanding that OT tried to find one to use for today's session, but it was not available, but therapy will continue to make the platform walker a priority due to her preference. -KT Family/Caregiver Present No -MR No -KT Precautions Fall risk -MR Fall risk -KT Weight Bearing Restrictions Yes -MR Yes -KT RUE Weight Bearing NWB -MR NWB -KT Precaution Comments RUE platform WB ok, maintains well throughout session -MR verbally reviewed R UE precautions -KT Pain Assessment No/denies pain -MR 0-10 -KT Pain Score -- 5 - Moderate pain -KT Pain Location -- Wrist -KT Pain Orientation -- Right patient also reports R LE is painful at times as well due to her fall -KT Pain Interventions -- RN Notified patient declines meds right now stating pain is not bad -KT Balance Yes -MR Yes -KT Static Sitting-Balance Support Feet supported;No upper extremity supported -MR Feet supported;No upper extremity supported -KT Static Sitting-Sitting Surface Bed -MR Bed -KT Static Sitting-Level of Assistance Distant supervision -MR Distant supervision -KT Dynamic Sitting-Balance Support Unilateral upper extremity supported;Feet supported -MR No upper extremity supported -KT Dynamic Sitting-Balance Forward lean;Lateral lean;Reaching for objects -MR Forward lean -KT Dynamic Sitting-Sitting Surface Bed -MR Chair -KT Dynamic Sitting-Level of Assistance Distant supervision -MR Close supervision -KT Dynamic Sitting-Comments safety -MR LB dressing task -KT Static Standing-Balance Support Unilateral upper extremity supported -MR Left upper extremity supported -KT Static Standing-Standing Surface Floor -MR Floor -KT Static Standing-Level of Assistance Contact guard -MR Contact guard -KT Static Standing-Comment/# of Minutes -- use of LBQC -KT Dynamic Standing-Balance Support -- No upper extremity supported -KT Dynamic Standing-Balance -- Forward lean -KT Dynamic Standing-Standing Surface -- Floor -KT Dynamic Standing-Level of Assistance -- Minimum assistance -KT Dynamic Standing-Comments -- grooming at sink -KT ADLS (WDL) X -MR X -KT Grooming: Where assessed Standing at sink -MR Standing at sink -KT Grooming: Level of assistance Contact Guard Assist -MR Minimum Assist -KT Grooming: Assistance with Safety balance at sink -MR -- LE Dressing: Where assessed Chair -MR Chair -KT LE Dressing: Level of assistance Moderate Assist -MR Moderate Assist -KT LE Dressing: Assistance with Don/doff R sock;Thread RLE into pants;Thread LLE into pants -MR Don/doff R sock;Thread RLE into pants;Don/doff R shoe -KT Toileting: Where assessed Toilet -MR Toilet -KT Toileting: Level of assistance Moderate Assist -MR Moderate Assist -KT Toileting: Assistance with Perineal hygiene;Clothing management up;Safety balance -MR Perineal hygiene;Posterior;Increased time to complete -KT Room Mobility: Where assessed -- bed to bathroom then to recliner -KT Health Management: Equipment -- Cane -KT Room Mobility: Level of Assistance -- Minimum Assist -KT Bed Mobility Yes -MR Yes -KT Bed Mobility From 1 Supine -MR Supine -KT Bed Mobility Type 1 To -MR To -KT Bed Mobility to 1 Edge of bed -MR Edge of bed -KT Level of Assistance 1 Minimum Assist -MR Minimum Assist -KT Bed Mobility Comments 1 to scoot hips fully to edge of bed -MR HOB elevated and use of rails. difficulty moving R LE, might benefit from use of leg facilities maintenance worker for R LE bed mobility -KT Transfer Yes -MR Yes -KT Transfer From 1 Sit -MR Sit -KT Transfer Type 1 To and from -MR To and from -KT Transfer to 1 Stand -MR Stand -KT Technique 1 Sit to stand -MR Sit to stand;Stand to sit -KT Transfer Device 1 Hand held assist -MR LBQC -KT Transfer Level of Assistance 1 Contact Guard Assist -MR Minimum Assist -KT Transfer From 2 Bed -MR -- Transfer Type 2 To -MR -- Transfer to 2 Chair with arms -MR -- Technique 2 Ambulation -MR -- Transfer Device 2 Hand held assist -MR -- Transfer Level of Assistance 2 Minimum Assist -MR -- Toilet Transfer From Bed -MR Bed -KT Toilet Transfer Type To and from -MR To -KT Toilet Transfer to Standard toilet -MR Standard toilet -KT Toilet Transfer Technique Ambulating -MR Ambulating -KT Toilet Transfer: Equipment Hand hold -MR LBQC;Grab bar -KT Toilet Transfers Minimal assistance -MR Minimal assistance -KT Cognition Comments Highly motivated to regain independence -MR -- Overall Cognitive Status WFL -MR WFL -KT Arousal/Alertness Alert;Appropriate responses to stimuli -MR Alert;Appropriate responses to stimuli-KT Attention Span Appears intact;Age appropriate -MR Appears intact -KT Memory Appears intact -MR Appears intact -KT Current communication Appears Intact -MR Appears Intact -KT Orientation Oriented X4 (person, place, time, situation) -MR Oriented X4 (person, place, time, situation) -KT Following Commands Follows all commands and directions without difficulty -MR Follows all commands and directions without difficulty -KT Safety Judgment Good awareness of safety precautions -MR Good awareness of safety precautions -KT Awareness of Errors -- Good awareness of errors made -KT Insight Fully aware of deficits -MR Fully aware of deficits -KT Problem Solving -- Able to problem solve independently -KT Compliance/Behavior Easy to engage -MR Easy to engage -KT Activity Tolerance Comments -- Isaak: moderate -KT Comments -- Patient states after doing grooming at sink and toileting, her legs do feel shaky and knows she requires assist with mobility. -KT Putting on and taking off regular lower body clothing 2 -MR 2 -KT Bathing 3 -MR 3 -KT Toileting 2 -MR 2 -KT Putting on and taking off upper body clothing 3 -MR 2 -KT Personal Grooming 3 -MR 3 -KT Eating Meals 4 -MR 3 -KT Total Score (range 6-24) 17 -MR 15 -KT Score Interpretation 37.26 -MR 34.69 -KT Safe Environment End of Therapy Session Patient left in recliner;RN notified;Call light within reach;Overbed table within reach -MR Patient left in recliner;Chair alarm in place and activated;RN notified;Call light within reach;Overbed table within reach -KT Problem List Decreased upper extremity range of motion;Decreased upper extremity strength;Decreasedendurance;Decreased safe judgment during ADL;Decreased balance;Decreased ADL independence;Decreasedfunctional mobility;Decreased IADL independence -MR Decreased upper extremity range of motion;Decreased upper extremity strength;Decreased endurance;Decreased balance;Decreased fine motor control;Decreased functional mobility;Decreased ADL independence;Decreased IADL independence -KT Barriers to Discharge Current Mobility Status -MR Current Mobility Status;Decreased caregiver support -KT Barrier Comments fall risk during ADLs -MR fall risk -KT Plan -- Continue with current plan;If this is the last note, consider this the discharge summary -KT OT Recommendation Inpatient Rehab Facility -MR Inpatient Rehab Facility -KT Patient at high risk for Falls;Readmission;Injury due to decreased ability to care for self;Injury due to balance deficits;Improper use of DME;Difficulty maintaining orthopedic restrictions -MR Falls;Injury due to reduced functional status;Injury due to balance deficits;Injury at home as patient has not returned to prior level of function -KT Recommend Inpatient Rehab/Acute Rehab due to Ability to actively participate in intensive therapy 3hours/day, 5 days/week or 900 minutes per week;Highly motivated to participate in therapy;Not at baseline due to impaired ability to complete ADLs;Impaired ability to complete functional mobility;Likely to return to the community at discharge with support system in place;Requires greater than 25% physical assistance with most mobility tasks;Requires multiple therapy disciplines to address functional deficits;Requires greater than 25% physical assistance with most ADL tasks;Requires skilled therapy interventions to address neurological deficits;Patient and caregiver require specialized skilledtraining due to new level of function/diagnosis -MR Ability to actively participate in intensive therapy 3 hours/day, 5 days/week or 900 minutes per week;Highly motivated to participate in therapy;Not at baseline due to impaired ability to complete ADLs;Impaired ability to complete functional mobility;Likely to return to the community at discharge with support system in place;Requires greater than 25% physical assistance with most mobility tasks;Requires greater than 25% physical assistance with most ADL tasks;Requires multiple therapy disciplines to address functional deficits;Patient and caregiver require specialized skilled training due to new level of function/diagnosis -KT OT Frequency during current admission 3-5x/wk -MR 3-5x/wk -KT Treatment/Interventions during current admission ADL/IADL retraining;Balance Training;Bed mobility;Compensatory technique education;Endurance training;Equipment eval/education;Functional activity;Functional mobility training;Functional transfer training;Neuromuscular re-education;Strengthening;Therapeutic activity;Therapeutic exercise;Transfer training -MR ADL/IADL retraining;Balance Training;Bedmobility;Compensatory technique education;Endurance training;Functional activity;Functional mobility training;Functional transfer training;Strengthening;Therapeutic activity;Therapeutic exercise;Transfer training -KT OT Equipment Recommended -- -- bidet prn for posterior perihygiene -KT Progress during current admission Progressing toward goals -MR Progressing toward goals -KT OT - Next Appointment 03/05/23 -MR 03/03/23 -KT User Martinez (r) = Recorded By, (t) = Taken By, (c) = Cosigned By Initials Name Effective Dates Sheron Devine, OT 05/17/19 - Nelia Roth OT 07/03/22 - OT Notes 03/04/2023 10:31 AM Progress Notes signed by Sheron Mondragon OT 03/04/2023 10:31 AM Progress Notes addendum by Sheron Mondragon, OT , PT Eval and Treat Last 72 Hours PT Evaluation No documentation. PT TREATMENT (last 168 hours) PT Treatment Row Name 03/03/23 0928 02/26/23 1424 PT Last Visit Session Type Treatment -AR Treatment -NB Safe Environment Arm band checked;Patient found in supine -AR Arm band checked;Patient found in supine;Gait belt utilized for all out of bed mobility -NB Subjective Agreeable to Therapy -AR Agreeable to Therapy -NB Family/Caregiver Present No -AR No -NB Precautions Precautions Fall risk -AR Fall risk -NB Weight Bearing Restrictions Yes -AR Yes -NB RUE Weight Bearing NWB -AR NWB -NB Precaution Comments Pt. maintains NWB on R UE -AR reviewed precautions prior to mobility. PPE worn by PT;gown, mask, gloves -NB Activity Tolerance Activity Tolerance Comments ISAAK: Moderate -AR ISAAK:moderate -NB Pain Assessment Pain Assessment No/denies pain -AR No/denies pain -NB Cognition Arousal/Alertness Alert;Appropriate responses to stimuli -AR Alert;Appropriate responses to stimuli-NB Orientation Oriented X4 (person, place, time, situation) -AR Oriented X4 (person, place, time, situation) -NB Following Commands Follows all commands and directions without difficulty -AR Follows all commands and directions without difficulty -NB Compliance/Behavior Easy to engage -AR -- Balance Balance Yes -AR Yes -NB Static Sitting Balance Static Sitting-Balance Support Feet supported;No upper extremity supported -AR No upper extremity supported;Feet supported -NB Static Sitting-Sitting Surface Bed -AR Bed -NB Static Sitting-Level of Assistance Distant supervision -AR Close supervision -NB Static Sitting-Comment/# of Minutes safety 2/2 dizziness -AR safety/balance -NB Static Standing Balance Static Standing-Balance Support Bilateral upper extremity supported -AR Left upper extremity supported -NB Static Standing-Standing Surface Floor -AR Floor -NB Static Standing-Level of Assistance Contact guard -AR Minimum assistance -NB Static Standing-Comment/# of Minutes with WW and PF attachment -AR assist for safety/balance. quad cane -NB Bed Mobility Bed Mobility Yes -AR Yes -NB Bed Mobility 1 Bed Mobility From 1 Supine -AR Supine -NB Bed Mobility Type 1 To -AR To -NB Bed Mobility to 1 Edge of bed -AR Edge of bed -NB Level of Assistance 1 Minimum Assist -AR Moderate Assist -NB Bed Mobility Comments 1 Min A for force production and positioning -AR assist for safety, trunk elevation, bringing hips to EOB, LE management. -NB Transfers Transfer Yes -AR Yes -NB Transfer 1 Transfer From 1 Sit -AR Sit -NB Transfer Type 1 To and from -AR To and from -NB Transfer to 1 Stand -AR Stand -NB Technique 1 Sit to stand;Stand to sit -AR Sit to stand;Stand to sit -NB Transfer Device 1 Hand held assist -AR LBQC -NB Transfer Level of Assistance 1 Minimum Assist -AR Minimum Assist -NB Trials/Comments 1 Min A for balance and force production -AR assist for safety, balance, force production. -NB Transfers 2 Transfer From 2 Bed -AR -- Transfer Type 2 To -AR -- Transfer to 2 Chair with arms -AR -- Technique 2 Stand and step -AR -- Transfer Device 2 Hand held assist -AR -- Transfer Level of Assistance 2 Minimum Assist -AR -- Trials/Comments 2 Min A for balance and weight shifting -AR -- Ambulation Ambulation Yes -AR Yes -NB Ambulation 1 Distance (ft) 1 94 -AR 4 -NB Surface 1 Level tile -AR Level tile -NB Device 1 Wheeled walker;Platform attachment right -AR LBQC -NB Assistance 1 Minimum Assist -AR Minimum Assist -NB Gait: Requires assist with 1 Maintaining balance -AR Maintaining balance -NB Gait: Requires verbal cues to 1 Pace activity -AR Use assistive device safely;Utilize pursed lip breathing;Increase step length;Improve upright posture -NB Gait Deviations 1 Roma - decreased;Step length - decreased -AR Base of support - decreased;Roma - decreased;Step length - decreased;Turns - difficulty;Posture - flexed;Heel strike - decreased -NB Ambulation Comments 1 Pt. walks without rest; Min A for balance. R UE platform attachment used -AR deferred further mobility 2/2 dizziness. -NB Stairs Stairs No -AR No -NB Other Comments Other PT Comments VSS and no reports of dizziness with mobility -AR -- Basic Mobility - 6 Click How much difficulty does the patient have: Turning over in bed 3 -AR 3 -NB How much difficulty does the patient currently have: Sitting down and standing up from a chair witharms? 3 -AR 3 -NB How much difficulty does the patient have: Moving from lying on back to sitting on the side of the bed? 3 -AR 3 -NB How much difficulty does the patient have: Moving to and from a bed to a chair including wheelchair? 3 -AR 3 -NB How much help does the patient currently need: Walk in hospital room? 3 -AR 3 -NB How much help from another person does the patient currently need: Climbing 3-5 steps with a railing? 2 -AR 2 -NB Total 6 Click Score (range 6-24) 17 -AR 17 -NB Score Interpretation 39.67 -AR 39.67 -NB Safe Environment End of Therapy Session Safe Environment End of Therapy Session Patient left in chair;RN notified;Call light within reach -AR RN notified;Call light within reach;Overbed table within reach;Patient left supine in bed -NB Assessment Prognosis Good -AR Good -NB Problem List Gait deviations;Decreased strength;Decreased endurance;Impaired balance -AR Gait deviations;Decreased strength;Decreased endurance;Decreased range of motion;Impaired balance;Decreased mobility -NB Barriers to Discharge -- Current Mobility Status -NB Plan Plan Continue with current plan;If this is the last note, consider this the discharge summary -AR Continue with current plan;If this is the last note, consider this the discharge summary -NB Recommendation/Plan PT Recommendation/Plan Inpatient Rehab Facility -AR Inpatient Rehab Facility -NB Patient at high risk for -- Falls;Readmission;Injury due to decreased ability to care for self;Injury due to reduced functional status;Injury due to balance deficits;Injury at home as patient has notreturned to prior level of function;Developing secondary complications: poor health management -NB Recommend Inpatient Rehab/Acute Rehab due to -- Impaired ability to complete functional mobility;Not at baseline due to impaired ability to complete ADLs;Likely to return to the community at discharge with support system in place;Requires greater than 25% physical assistance with most mobility tasks ;Requires multiple therapy disciplines to address functional deficits;Ability to actively participate in intensive therapy 3 hours/day, 5 days/week or 900 minutes per week;Highly motivated to participate in therapy -NB PT Frequency during current admission 3-5x/wk -AR 3-5x/wk -NB Treatment/Interventions during current admission Balance Training;Bed mobility;Gait training;Functional transfer training;Endurance training -AR Balance Training;Bed mobility;Functional transfer training;Gait training;Strengthening;Therapeutic activity -NB PT Equipment Recommended Wheeled walker platform attachment -AR -- Progress during current admission Progressing toward goals -AR Progressing toward goals -NB User Martinez (r) = Recorded By, (t) = Taken By, (c) = Cosigned By Initials Name Effective Dates AR Suki Francisco, PT 10/25/21 - 03/03/23 Branden Recinos, PT 10/30/21 - PT Notes 03/03/2023 2:46 PM Progress Notes signed by Suki Francisco, PT * Plan of Care - Kiana Cardoso RN - 03/04/2023 9:48 PM CDT Goals: Clinical Goals for the Shift: pt will remain HDS Summary: Patient participating in care plan goals. Patient verbalized education and is progressing towards goals. Problem: Health Behavior: Goal: Understanding of discharge needs will improve Outcome: Progressing Problem: Lack of Knowledge: Goal: Ability to state ways to decrease the risk of falls will improve Outcome: Progressing Problem: Safety: Goal: Will remain free from falls Outcome: Progressing Goal: Will remain free from injury from falls Outcome: Progressing Goal: Will remain free from falls and injury in home environment Outcome: Progressing Problem: Activity: Goal: Mobility will improve Outcome: Progressing Problem: Lack of Knowledge: Goal: Understanding of ways to prevent future skin breakdown will improve Outcome: Progressing Goal: Ability to identify appropriate dietary choices will improve Outcome: Progressing Problem: Nutritional: Goal: Dietary intake will improve Outcome: Progressing Goal: Ability to maintain a balanced intake and output will improve Outcome: Progressing Problem: Skin Integrity: Goal: Risk for impaired skin integrity will decrease Outcome: Progressing Goal: Ability to demonstrate warm and dry skin will improve Outcome: Progressing Goal: Circulation will improve to fullest extent possible Outcome: Progressing Problem: Cardiac: Goal: Ability to maintain an adequate cardiac output will improve Outcome: Progressing Goal: Hemodynamic stability will improve Outcome: Progressing Problem: Lack of Knowledge: Goal: Ability to state signs and symptoms to report to health care provider will improve Outcome: Progressing Goal: Knowledge of the prescribed therapeutic regimen will improve Outcome: Progressing Goal: Mental status will improve Outcome: Progressing Problem: Lack of Knowledge: Goal: Ability to develop a pain control plan will improve Outcome: Progressing Goal: Ability to identify pain intensity on a pain scale and rate it consistently will improve Outcome: Progressing Goal: Ability to notify healthcare provider of pain before it becomes unmanageable or unbearable will improve Outcome: Progressing Problem: Medication: Goal: Satisfaction with pain management regimen will improve Outcome: Progressing Problem: Sensory: Goal: Ability to identify factors that increase the pain will improve Outcome: Progressing Goal: Pain level will decrease Outcome: Progressing Problem: Activity: Goal: Ability to return to normal activity level will improve Outcome: Progressing Problem: Lack of Knowledge: Goal: Knowledge of the prescribed therapeutic regimen will improve Outcome: Progressing Problem: Coping: Goal: Ability to cope will improve Outcome: Progressing Problem: Health Behavior: Goal: Identification of resources available to assist in meeting health care needs will improve Outcome: Progressing Problem: Sensory: Goal: Pain level will decrease Outcome: Progressing Problem: Activity: Goal: Ability to tolerate increased activity will improve Outcome: Progressing Goal: Ability to participate in self-care as condition permits will improve Outcome: Progressing Problem: Cardiac: Goal: Ability to maintain an adequate cardiac output will improve Outcome: Progressing Goal: Will show no evidence of cardiac arrhythmias Outcome: Progressing Goal: Complications related to the disease process, condition or treatment will be avoided or minimized Outcome: Progressing Problem: Lack of Knowledge: Goal: Knowledge of disease or condition will improve Outcome: Progressing Goal: Knowledge of the prescribed therapeutic regimen will improve Outcome: Progressing Goal: Ability to identify and utilize available resources and services will improve Outcome: Progressing * Plan of Care - Edita Callahan RN - 03/04/2023 12:08 PM CDT Problem: Health Behavior: Goal: Understanding of discharge needs will improve Outcome: Progressing Problem: Health Behavior: Goal: Understanding of discharge needs will improve Outcome: Progressing Goals: Clinical Goals for the Shift: pt will remain HDS Summary: * Summary of Treatment Recommendations Non-Billable - Nallely Chaudhari MD PhD - 03/04/2023 9:59 AMCDT Infectious Diseases Sign Off Recommendations for Patients on [facility] IV Antibiotics Diagnosis: MRSA bacteremia Retained Infected Hardware (Yes/No/Unclear): 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 Site of Infection(s): Blood Organism(s): MRSA Antibiotics Start Date: 02/17/2023 Infectious Disease Team: General 4 Infectious Disease Attending: Fara Medication Recommendations: Drug(s): linezolid 600 mg PO BID - end date of 03/16/2023 Firm Stop (Yes/No): Yes Anticipated Stop Date (note, the following date does not imply an order to stop on that date): 03/16/2023 Imaging Recommended Before Follow Up (include clinical question to be answered by imaging): None Summary of Consultation: Tiera Lobato is a 77 year old lady with atrial fibrillation who presented to an outside hospital in A fib with RVR with hemodynamic instability [facility]. Her hospital course was complicated several days after admisson to the outside hospital by MRSA bacteremia for 1 day at the OSH. Rapidly cleared. She reports no preceding fevers or chills prior to going to the hospital for A fib, and given rapid clearance of bacteremia and echo without any associated vegetations I suspect that this may be a nosocomial infection that she developed while at [facility]. However, given her prosthetic knee and the observation of mil d thickening on the tricuspid valve (but without any overt vegetations) I would prefer to treat with a four week course of antibiotic therapy. She was initially on IV vancomycin here while inpatient but after about two and a half weeks her Cr was slowly rising and so the day of discharge I recommended transition to PO linezolid for the last week and a half. This is also because she was going to a facility for a few days but then would be discharging home and per team setting up home health and home IV abx at that time was going to be a challenge. Firm stop date of 03/16/2023 for the linezolid. Follow Up Plan: With Gen ID in 2 weeks. * Consults, Subsequent - Nallely Chaudhari MD PhD - 03/04/2023 9:25 AM CDT Infectious Disease Subsequent Consult Note Infectious Disease Team: General 4 Contact Information: Please see [facility] Treatment Team listing for up-to-date contact information. Subjective Since last seen Cr slowly rising on vancomycin. Pt planned for discharge home soon, reports she feels generally well. Objective Anti-infectives (From admission, onward) Start Dose/Rate Route Frequency Ordered Stop 03/03/232099 linezolid (ZYVOX) tablet 600 mg 600 mg oral 2 times daily 03/03/23 1659 Vitals: 24hr Min/Max: Temp Min: 36.5 ??C (97.7 ??F) Max: 36.7 ??C (98.1 ??F) Pulse Min: 61 Max: 124 BP Min: 102/53 Max: 117/46 Resp Min: 16 Max: 18 SpO2 Min: 93 % Max: 98 % Active LDAs: PICC Triple Lumen 02/19/23 Non-tunneled Power #1 Doe, #2 Red, #3 White, Left Basilic;Upper arm (Active) Number of days: 2 Urethral Catheter (Active) Number of days: 0 Physical Exam: General: Alert, seated in chair at bedside, interactive and cooperative with exam. Well appearing. Eyes and Mouth: pupils are equal and round, sclera anicteric, Moist mucous membranes, no oral lesions noted. Neck: supple, no lymphadenopathy Lungs: Breathing comfortably on room air. Clear to auscultation anteriorly Cardiac:tachycardic, no murmurs appreciated Abd: soft, nontender, nondistended, normoactive bowel sounds MSK: no joint swelling or effusions are noted. Full range of motion at elbows, wrists, knees and ankles. Spine: no spinal tenderness on palpation. Skin: No lesions or rashes noted on exposed skin Neuro: Facial features are symmetric, speech is clear and fluent and appropriate. Moves all extremities equally, sensation is intact to light Touch Access: IV site is clean/dry and intact Lab/Radiology/Diagnostic Review: Lab Results Component Value Date MICROBIOLOGY Final Report: No growth 02/22/2023 MICROBIOLOGY Final Report: No growth 02/22/2023 MICROBIOLOGY (.) 02/20/2023 Final Report: Staphylococcus epidermidis Single blood culture positive for this microorganism. Isolate is a possible contaminant. If a similar isolate is recovered from a second blood culture collected within 3 days of this culture, both will be evaluated and, if determined to be the same species, antimicrobial susceptibility testing will be performed. Staphylococcus epidermidis #2 Single blood culture positive for this microorganism. Isolate is a possible contaminant. If a similar isolate is recovered from a second blood culture collected within 3 days of this culture, both will be evaluated and, if determined to be the same species, antimicrobial susceptibility testing will be performed. Staphylococcus hominis Single blood culture positive for this microorganism. Isolate is a possible contaminant. If a similar isolate is recovered from a second blood culture collected within 3 days of this culture, both will be evaluated and, if determined to be the same species, antimicrobial susceptibility testing will be performed. MICROBIOLOGY Final Report: No growth 02/20/2023 MICROBIOLOGY Final Report: Negative 02/17/2023 Radiology results were reviewed. No results found. Assessment/Plan Tiera Lobato is a 77 year old lady with atrial fibrillation who presented to an outside hospital in A fib with RVR with hemodynamic instability requiring transfer to [facility] for a higher level of care. Her hospital course was complicated by MRSA bacteremia. MRSA bacteremia: Unclear if this was present at admission, but she reports no preceding fevers or chills, and given rapid clearance of bacteremia and echo without any associated vegetations I suspect that this may ran nosocomial infection that she developed while at [facility]. However, given her prostheticknee and the observation of mild thickening on the tricuspid valve (but without any overt vegetations) I would prefer to treat with a four week course of antibiotic therapy. She has tolerated vancomycin generally well while inpatient but Cr is now slowly rising. Recommend transitioning to PO linezolid 600 mg BID to complete remaining course of therapy. Recommendations: - d/c IV vancomycin - continue PO linezolid 600 mg BID until 03/16/23 - no further ID follow-up needed at this time. Medical Decision Making:Today, I am treating the patient for MRSA bacteremia which can cause sepsisor in the short-term future in the absence of appropriate treatment, as described in the note. I am monitoring for vancomycin toxicity with vancomycin troughs. Nallely Chaudhari MD PhD [facility]ious Diseases [facility] the care of your patient. Please chat message in [employer] or call the ID team 4 attending with any questions or concerns at [phone] during daytime hours. If there is an emergency after hours then the ID fellow diamond setter can be reached at [phone]. * Plan of Care - Kiana Cardoso RN - 03/03/2023 10:38 PM CDT Goals: Clinical Goals for the Shift: pt will remain HDS Summary: Patient participating in care plan goals. Patient verbalized education and is progressing towards goals. Problem: Health Behavior: Goal: Understanding of discharge needs will improve Outcome: Progressing Problem: Lack of Knowledge: Goal: Ability to state ways to decrease the risk of falls will improve Outcome: Progressing Problem: Safety: Goal: Will remain free from falls Outcome: Progressing Goal: Will remain free from injury from falls Outcome: Progressing Goal: Will remain free from falls and injury in home environment Outcome: Progressing Problem: Activity: Goal: Mobility will improve Outcome: Progressing Problem: Lack of Knowledge: Goal: Understanding of ways to prevent future skin breakdown will improve Outcome: Progressing Goal: Ability to identify appropriate dietary choices will improve Outcome: Progressing Problem: Nutritional: Goal: Dietary intake will improve Outcome: Progressing Goal: Ability to maintain a balanced intake and output will improve Outcome: Progressing Problem: Skin Integrity: Goal: Risk for impaired skin integrity will decrease Outcome: Progressing Goal: Ability to demonstrate warm and dry skin will improve Outcome: Progressing Goal: Circulation will improve to fullest extent possible Outcome: Progressing Problem: Cardiac: Goal: Ability to maintain an adequate cardiac output will improve Outcome: Progressing Goal: Hemodynamic stability will improve Outcome: Progressing Problem: Lack of Knowledge: Goal: Ability to state signs and symptoms to report to health care provider will improve Outcome: Progressing Goal: Knowledge of the prescribed therapeutic regimen will improve Outcome: Progressing Goal: Mental status will improve Outcome: Progressing Problem: Lack of Knowledge: Goal: Ability to develop a pain control plan will improve Outcome: Progressing Goal: Ability to identify pain intensity on a pain scale and rate it consistently will improve Outcome: Progressing Goal: Ability to notify healthcare provider of pain before it becomes unmanageable or unbearable will improve Outcome: Progressing Problem: Medication: Goal: Satisfaction with pain management regimen will improve Outcome: Progressing Problem: Sensory: Goal: Ability to identify factors that increase the pain will improve Outcome: Progressing Goal: Pain level will decrease Outcome: Progressing Problem: Activity: Goal: Ability to return to normal activity level will improve Outcome: Progressing Problem: Lack of Knowledge: Goal: Knowledge of the prescribed therapeutic regimen will improve Outcome: Progressing Problem: Coping: Goal: Ability to cope will improve Outcome: Progressing Problem: Health Behavior: Goal: Identification of resources available to assist in meeting health care needs will improve Outcome: Progressing Problem: Sensory: Goal: Pain level will decrease Outcome: Progressing Problem: Activity: Goal: Ability to tolerate increased activity will improve Outcome: Progressing Goal: Ability to participate in self-care as condition permits will improve Outcome: Progressing Problem: Cardiac: Goal: Ability to maintain an adequate cardiac output will improve Outcome: Progressing Goal: Will show no evidence of cardiac arrhythmias Outcome: Progressing Goal: Complications related to the disease process, condition or treatment will be avoided or minimized Outcome: Progressing Problem: Lack of Knowledge: Goal: Knowledge of disease or condition will improve Outcome: Progressing Goal: Knowledge of the prescribed therapeutic regimen will improve Outcome: Progressing Goal: Ability to identify and utilize available resources and services will improve Outcome: Progressing * ECIN Note - Baylee Burkett RN - 03/03/2023 3:48 PM CDT Images from the original note were not included. Patient Information: OT Eval and Treat Last 72 Hours OT Evaluation No documentation. OT Treatment Row Name 02/28/23 0944 Session Type Treatment -KT OT Received On 02/28/23 -KT Safe Environment Arm band checked;Patient found in supine;Session completed bedside;Gait belt utilized for all out of bed mobility -KT Subjective Agreeable to Therapy -KT Subjective Comment Patient states the last time she got up with therapy she used a quad cane, but she prefers the platform wheeled walker as that makes her feel more confident and steady. Patient verbalized understanding that OT tried to find one to use for today's session, but it was not available, but therapy will continue to make the platform walker a priority due to her preference. -KT Family/Caregiver Present No -KT Precautions Fall risk -KT Weight Bearing Restrictions Yes -KT RUE Weight Bearing NWB -KT Precaution Comments verbally reviewed R UE precautions -KT Pain Assessment 0-10 -KT Pain Score 5 - Moderate pain -KT Pain Location Wrist -KT Pain Orientation Right patient also reports R LE is painful at times as well due to her fall -KT Pain Interventions RN Notified patient declines meds right now stating pain is not bad -KT Balance Yes -KT Static Sitting-Balance Support Feet supported;No upper extremity supported -KT Static Sitting-Sitting Surface Bed -KT Static Sitting-Level of Assistance Distant supervision -KT Dynamic Sitting-Balance Support No upper extremity supported -KT Dynamic Sitting-Balance Forward lean -KT Dynamic Sitting-Sitting Surface Chair -KT Dynamic Sitting-Level of Assistance Close supervision -KT Dynamic Sitting-Comments LB dressing task -KT Static Standing-Balance Support Left upper extremity supported -KT Static Standing-Standing Surface Floor -KT Static Standing-Level of Assistance Contact guard -KT Static Standing-Comment/# of Minutes use of LBQC -KT Dynamic Standing-Balance Support No upper extremity supported -KT Dynamic Standing-Balance Forward lean -KT Dynamic Standing-Standing Surface Floor -KT Dynamic Standing-Level of Assistance Minimum assistance -KT Dynamic Standing-Comments grooming at sink -KT ADLS (WDL) X -KT Grooming: Where assessed Standing at sink -KT Grooming: Level of assistance Minimum Assist -KT LE Dressing: Where assessed Chair -KT LE Dressing: Level of assistance Moderate Assist -KT LE Dressing: Assistance with Don/doff R sock;Thread RLE into pants;Don/doff R shoe -KT Toileting: Where assessed Toilet -KT Toileting: Level of assistance Moderate Assist -KT Toileting: Assistance with Perineal hygiene;Posterior;Increased time to complete -KT Room Mobility: Where assessed bed to bathroom then to recliner -KT Health Management: Equipment Cane -KT Room Mobility: Level of Assistance Minimum Assist -KT Bed Mobility Yes -KT Bed Mobility From 1 Supine -KT Bed Mobility Type 1 To -KT Bed Mobility to 1 Edge of bed -KT Level of Assistance 1 Minimum Assist -KT Bed Mobility Comments 1 HOB elevated and use of rails. difficulty moving R LE, might benefit from use of leg facilities maintenance worker for R LE bed mobility -KT Transfer Yes -KT Transfer From 1 Sit -KT Transfer Type 1 To and from -KT Transfer to 1 Stand -KT Technique 1 Sit to stand;Stand to sit -KT Transfer Device 1 LBQC -KT Transfer Level of Assistance 1 Minimum Assist -KT Toilet Transfer From Bed -KT Toilet Transfer Type To -KT Toilet Transfer to Standard toilet -KT Toilet Transfer Technique Ambulating -KT Toilet Transfer: Equipment LBQC;Grab bar -KT Toilet Transfers Minimal assistance -KT Overall Cognitive Status WFL -KT Arousal/Alertness Alert;Appropriate responses to stimuli -KT Attention Span Appears intact -KT Memory Appears intact -KT Current communication Appears Intact -KT Orientation Oriented X4 (person, place, time, situation) -KT Following Commands Follows all commands and directions without difficulty -KT Safety Judgment Good awareness of safety precautions -KT Awareness of Errors Good awareness of errors made -KT Insight Fully aware of deficits -KT Problem Solving Able to problem solve independently -KT Compliance/Behavior Easy to engage -KT Activity Tolerance Comments Isaak: moderate -KT Comments Patient states after doing grooming at sink and toileting, her legs do feel shaky and knows she requires assist with mobility. -KT Putting on and taking off regular lower body clothing 2 -KT Bathing 3 -KT Toileting 2 -KT Putting on and taking off upper body clothing 2 -KT Personal Grooming 3 -KT Eating Meals 3 -KT Total Score (range 6-24) 15 -KT Score Interpretation 34.69 -KT Safe Environment End of Therapy Session Patient left in recliner;Chair alarm in place and activated;RN notified;Call light within reach;Overbed table within reach -KT Problem List Decreased upper extremity range of motion;Decreased upper extremity strength;Decreasedendurance;Decreased balance;Decreased fine motor control;Decreased functional mobility;Decreased ADL independence;Decreased IADL independence -KT Barriers to Discharge Current Mobility Status;Decreased caregiver support -KT Barrier Comments fall risk -KT Plan Continue with current plan;If this is the last note, consider this the discharge summary -KT OT Recommendation Inpatient Rehab Facility -KT Patient at high risk for Falls;Injury due to reduced functional status;Injury due to balance deficits;Injury at home as patient has not returned to prior level of function -KT Recommend Inpatient Rehab/Acute Rehab due to Ability to actively participate in intensive therapy 3hours/day, 5 days/week or 900 minutes per week;Highly motivated to participate in therapy;Not at baseline due to impaired ability to complete ADLs;Impaired ability to complete functional mobility;Likely to return to the community at discharge with support system in place;Requires greater than 25% physical assistance with most mobility tasks;Requires greater than 25% physical assistance with most ADL tasks;Requires multiple therapy disciplines to address functional deficits;Patient and caregiverrequire specialized skilled training due to new level of function/diagnosis -KT OT Frequency during current admission 3-5x/wk -KT Treatment/Interventions during current admission ADL/IADL retraining;Balance Training;Bed mobility;Compensatory technique education;Endurance training;Functional activity;Functional mobility training;Functional transfer training;Strengthening;Therapeutic activity;Therapeutic exercise;Transfer traini ng -KT OT Equipment Recommended -- bidet prn for posterior perihygiene -KT Progress during current admission Progressing toward goals -KT OT - Next Appointment 03/03/23 -KT User Martinez (r) = Recorded By, (t) = Taken By, (c) = Cosigned By Initials Name Effective Dates Nelia Roth, OT 07/03/22 - OT Notes Notes from 03/01/23 through 03/03/23 No notes of this type exist for this encounter. , PT Eval and Treat Last 72 Hours PT Evaluation No documentation. PT TREATMENT (last 168 hours) PT Treatment Row Name 03/03/23 0928 02/26/23 1425 PT Last Visit Session Type Treatment -AR Treatment -NB Safe Environment Arm band checked;Patient found in supine -AR Arm band checked;Patient found in supine;Gait belt utilized for all out of bed mobility -NB Subjective Agreeable to Therapy -AR Agreeable to Therapy -NB Family/Caregiver Present No -AR No -NB Precautions Precautions Fall risk -AR Fall risk -NB Weight Bearing Restrictions Yes -AR Yes -NB RUE Weight Bearing NWB -AR NWB -NB Precaution Comments Pt. maintains NWB on R UE -AR reviewed precautions prior to mobility. PPE worn by PT;gown, mask, gloves -NB Activity Tolerance Activity Tolerance Comments ISAAK: Moderate -AR ISAAK:moderate -NB Pain Assessment Pain Assessment No/denies pain -AR No/denies pain -NB Cognition Arousal/Alertness Alert;Appropriate responses to stimuli -AR Alert;Appropriate responses to stimuli-NB Orientation Oriented X4 (person, place, time, situation) -AR Oriented X4 (person, place, time, situation) -NB Following Commands Follows all commands and directions without difficulty -AR Follows all commands and directions without difficulty -NB Compliance/Behavior Easy to engage -AR -- Balance Balance Yes -AR Yes -NB Static Sitting Balance Static Sitting-Balance Support Feet supported;No upper extremity supported -AR No upper extremity supported;Feet supported -NB Static Sitting-Sitting Surface Bed -AR Bed -NB Static Sitting-Level of Assistance Distant supervision -AR Close supervision -NB Static Sitting-Comment/# of Minutes safety 2/2 dizziness -AR safety/balance -NB Static Standing Balance Static Standing-Balance Support Bilateral upper extremity supported -AR Left upper extremity supported -NB Static Standing-Standing Surface Floor -AR Floor -NB Static Standing-Level of Assistance Contact guard -AR Minimum assistance -NB Static Standing-Comment/# of Minutes with WW and PF attachment -AR assist for safety/balance. quad cane -NB Bed Mobility Bed Mobility Yes -AR Yes -NB Bed Mobility 1 Bed Mobility From 1 Supine -AR Supine -NB Bed Mobility Type 1 To -AR To -NB Bed Mobility to 1 Edge of bed -AR Edge of bed -NB Level of Assistance 1 Minimum Assist -AR Moderate Assist -NB Bed Mobility Comments 1 Min A for force production and positioning -AR assist for safety, trunk elevation, bringing hips to EOB, LE management. -NB Transfers Transfer Yes -AR Yes -NB Transfer 1 Transfer From 1 Sit -AR Sit -NB Transfer Type 1 To and from -AR To and from -NB Transfer to 1 Stand -AR Stand -NB Technique 1 Sit to stand;Stand to sit -AR Sit to stand;Stand to sit -NB Transfer Device 1 Hand held assist -AR LBQC -NB Transfer Level of Assistance 1 Minimum Assist -AR Minimum Assist -NB Trials/Comments 1 Min A for balance and force production -AR assist for safety, balance, force production. -NB Transfers 2 Transfer From 2 Bed -AR -- Transfer Type 2 To -AR -- Transfer to 2 Chair with arms -AR -- Technique 2 Stand and step -AR -- Transfer Device 2 Hand held assist -AR -- Transfer Level of Assistance 2 Minimum Assist -AR -- Trials/Comments 2 Min A for balance and weight shifting -AR -- Ambulation Ambulation Yes -AR Yes -NB Ambulation 1 Distance (ft) 1 94 -AR 4 -NB Surface 1 Level tile -AR Level tile -NB Device 1 Wheeled walker;Platform attachment right -AR LBQC -NB Assistance 1 Minimum Assist -AR Minimum Assist -NB Gait: Requires assist with 1 Maintaining balance -AR Maintaining balance -NB Gait: Requires verbal cues to 1 Pace activity -AR Use assistive device safely;Utilize pursed lip breathing;Increase step length;Improve upright posture -NB Gait Deviations 1 Roma - decreased;Step length - decreased -AR Base of support - decreased;Roma - decreased;Step length - decreased;Turns - difficulty;Posture - flexed;Heel strike - decreased -NB Ambulation Comments 1 Pt. walks without rest; Min A for balance. R UE platform attachment used -AR deferred further mobility 2/2 dizziness. -NB Stairs Stairs No -AR No -NB Other Comments Other PT Comments VSS and no reports of dizziness with mobility -AR -- Basic Mobility - 6 Click How much difficulty does the patient have: Turning over in bed 3 -AR 3 -NB How much difficulty does the patient currently have: Sitting down and standing up from a chair witharms? 3 -AR 3 -NB How much difficulty does the patient have: Moving from lying on back to sitting on the side of the bed? 3 -AR 3 -NB How much difficulty does the patient have: Moving to and from a bed to a chair including wheelchair? 3 -AR 3 -NB How much help does the patient currently need: Walk in hospital room? 3 -AR 3 -NB How much help from another person does the patient currently need: Climbing 3-5 steps with a railing? 2 -AR 2 -NB Total 6 Click Score (range 6-24) 17 -AR 17 -NB Score Interpretation 39.67 -AR 39.67 -NB Safe Environment End of Therapy Session Safe Environment End of Therapy Session Patient left in chair;RN notified;Call light within reach -AR RN notified;Call light within reach;Overbed table within reach;Patient left supine in bed -NB Assessment Prognosis Good -AR Good -NB Problem List Gait deviations;Decreased strength;Decreased endurance;Impaired balance -AR Gait deviations;Decreased strength;Decreased endurance;Decreased range of motion;Impaired balance;Decreased mobility -NB Barriers to Discharge -- Current Mobility Status -NB Plan Plan Continue with current plan;If this is the last note, consider this the discharge summary -AR Continue with current plan;If this is the last note, consider this the discharge summary -NB Recommendation/Plan PT Recommendation/Plan Inpatient Rehab Facility -AR Inpatient Rehab Facility -NB Patient at high risk for -- Falls;Readmission;Injury due to decreased ability to care for self;Injury due to reduced functional status;Injury due to balance deficits;Injury at home as patient has notreturned to prior level of function;Developing secondary complications: poor health management -NB Recommend Inpatient Rehab/Acute Rehab due to -- Impaired ability to complete functional mobility;Not at baseline due to impaired ability to complete ADLs;Likely to return to the community at discharge with support system in place;Requires greater than 25% physical assistance with most mobility tasks ;Requires multiple therapy disciplines to address functional deficits;Ability to actively participate in intensive therapy 3 hours/day, 5 days/week or 900 minutes per week;Highly motivated to participate in therapy -NB PT Frequency during current admission 3-5x/wk -AR 3-5x/wk -NB Treatment/Interventions during current admission Balance Training;Bed mobility;Gait training;Functional transfer training;Endurance training -AR Balance Training;Bed mobility;Functional transfer training;Gait training;Strengthening;Therapeutic activity -NB PT Equipment Recommended Wheeled walker platform attachment -AR -- Progress during current admission Progressing toward goals -AR Progressing toward goals -NB User Martinez (r) = Recorded By, (t) = Taken By, (c) = Cosigned By Initials Name Effective Dates AR Suki Francisco, PT 10/25/21 - Branden Recinos, PT 10/30/21 - PT Notes 03/03/2023 2:46 PM Progress Notes signed by Suki Francisco, PT * Plan of Care - Edita Callahan RN - 03/03/2023 3:19 PM CDT Problem: Health Behavior: Goal: Understanding of discharge needs will improve Outcome: Progressing Problem: Lack of Knowledge: Goal: Ability to state ways to decrease the risk of falls will improve Outcome: Progressing Problem: Safety: Goal: Will remain free from falls Outcome: Progressing Goal: Will remain free from injury from falls Outcome: Progressing Goal: Will remain free from falls and injury in home environment Outcome: Progressing Problem: Activity: Goal: Mobility will improve Outcome: Progressing Goals: Clinical Goals for the Shift: Stable VS, free of falls, free of nausea and dizziness, pain control Summary: * Plan of Care - Baylee Burkett RN - 03/03/2023 9:50 AM CDT CM received call from [employer] ([phone]) that patient needs to sign a form in order to start the appeal process. Ban emailed form to CM, CM printed form and patient signed. Form was faxed back to [phone]. * Plan of Care - Cici Uribe RN - 03/02/2023 11:58 PM CDT Goals: Clinical Goals for the Shift: Stable VS, free of falls, free of nausea and dizziness, pain control Problem: Health Behavior: Goal: Understanding of discharge needs will improve Outcome: Progressing Problem: Lack of Knowledge: Goal: Ability to state ways to decrease the risk of falls will improve Outcome: Progressing Problem: Safety: Goal: Will remain free from falls Outcome: Progressing Goal: Will remain free from injury from falls Outcome: Progressing Goal: Will remain free from falls and injury in home environment Outcome: Progressing Problem: Activity: Goal: Mobility will improve Outcome: Progressing Problem: Lack of Knowledge: Goal: Understanding of ways to prevent future skin breakdown will improve Outcome: Progressing Goal: Ability to identify appropriate dietary choices will improve Outcome: Progressing Problem: Nutritional: Goal: Dietary intake will improve Outcome: Progressing Goal: Ability to maintain a balanced intake and output will improve Outcome: Progressing Problem: Skin Integrity: Goal: Risk for impaired skin integrity will decrease Outcome: Progressing Goal: Ability to demonstrate warm and dry skin will improve Outcome: Progressing Goal: Circulation will improve to fullest extent possible Outcome: Progressing Problem: Cardiac: Goal: Ability to maintain an adequate cardiac output will improve Outcome: Progressing Goal: Hemodynamic stability will improve Outcome: Progressing Problem: Lack of Knowledge: Goal: Ability to state signs and symptoms to report to health care provider will improve Outcome: Progressing Goal: Knowledge of the prescribed therapeutic regimen will improve Outcome: Progressing Goal: Mental status will improve Outcome: Progressing Problem: Lack of Knowledge: Goal: Ability to develop a pain control plan will improve Outcome: Progressing Goal: Ability to identify pain intensity on a pain scale and rate it consistently will improve Outcome: Progressing Goal: Ability to notify healthcare provider of pain before it becomes unmanageable or unbearable will improve Outcome: Progressing Problem: Medication: Goal: Satisfaction with pain management regimen will improve Outcome: Progressing Problem: Sensory: Goal: Ability to identify factors that increase the pain will improve Outcome: Progressing Goal: Pain level will decrease Outcome: Progressing Problem: Activity: Goal: Ability to return to normal activity level will improve Outcome: Progressing Problem: Lack of Knowledge: Goal: Knowledge of the prescribed therapeutic regimen will improve Outcome: Progressing Problem: Coping: Goal: Ability to cope will improve Outcome: Progressing Problem: Health Behavior: Goal: Identification of resources available to assist in meeting health care needs will improve Outcome: Progressing Problem: Sensory: Goal: Pain level will decrease Outcome: Progressing Problem: Activity: Goal: Ability to tolerate increased activity will improve Outcome: Progressing Goal: Ability to participate in self-care as condition permits will improve Outcome: Progressing Problem: Cardiac: Goal: Ability to maintain an adequate cardiac output will improve Outcome: Progressing Goal: Will show no evidence of cardiac arrhythmias Outcome: Progressing Goal: Complications related to the disease process, condition or treatment will be avoided or minimized Outcome: Progressing Problem: Lack of Knowledge: Goal: Knowledge of disease or condition will improve Outcome: Progressing Goal: Knowledge of the prescribed therapeutic regimen will improve Outcome: Progressing Goal: Ability to identify and utilize available resources and services will improve Outcome: Progressing Problem: Coping: Goal: Level of anxiety will decrease Outcome: Progressing Problem: Safety: Goal: Ability to remain free from injury will improve Outcome: Progressing Goal: Will show no signs and symptoms of excessive bleeding Outcome: Progressing Summary: Patient verbalized understanding of care plan and is participating in care. Vital signs stable. Patient denies any further needs at this time. * Plan of Care - Karen Ventura RN - 03/02/2023 10:51 AM CDT Problem: Health Behavior: Goal: Understanding of discharge needs will improve Outcome: Progressing Problem: Lack of Knowledge: Goal: Ability to state ways to decrease the risk of falls will improve Outcome: Progressing Problem: Safety: Goal: Will remain free from falls Outcome: Progressing Goal: Will remain free from injury from falls Outcome: Progressing Goal: Will remain free from falls and injury in home environment Outcome: Progressing Problem: Activity: Goal: Mobility will improve Outcome: Progressing Problem: Lack of Knowledge: Goal: Understanding of ways to prevent future skin breakdown will improve Outcome: Progressing Goal: Ability to identify appropriate dietary choices will improve Outcome: Progressing Problem: Nutritional: Goal: Dietary intake will improve Outcome: Progressing Goal: Ability to maintain a balanced intake and output will improve Outcome: Progressing Problem: Skin Integrity: Goal: Risk for impaired skin integrity will decrease Outcome: Progressing Goal: Ability to demonstrate warm and dry skin will improve Outcome: Progressing Goal: Circulation will improve to fullest extent possible Outcome: Progressing Problem: Cardiac: Goal: Ability to maintain an adequate cardiac output will improve Outcome: Progressing Goal: Hemodynamic stability will improve Outcome: Progressing Problem: Lack of Knowledge: Goal: Ability to state signs and symptoms to report to health care provider will improve Outcome: Progressing Goal: Knowledge of the prescribed therapeutic regimen will improve Outcome: Progressing Goal: Mental status will improve Outcome: Progressing Problem: Lack of Knowledge: Goal: Ability to develop a pain control plan will improve Outcome: Progressing Goal: Ability to identify pain intensity on a pain scale and rate it consistently will improve Outcome: Progressing Goal: Ability to notify healthcare provider of pain before it becomes unmanageable or unbearable will improve Outcome: Progressing Problem: Medication: Goal: Satisfaction with pain management regimen will improve Outcome: Progressing Problem: Sensory: Goal: Ability to identify factors that increase the pain will improve Outcome: Progressing Goal: Pain level will decrease Outcome: Progressing Problem: Activity: Goal: Ability to return to normal activity level will improve Outcome: Progressing Problem: Lack of Knowledge: Goal: Knowledge of the prescribed therapeutic regimen will improve Outcome: Progressing Problem: Coping: Goal: Ability to cope will improve Outcome: Progressing Problem: Health Behavior: Goal: Identification of resources available to assist in meeting health care needs will improve Outcome: Progressing Problem: Sensory: Goal: Pain level will decrease Outcome: Progressing Goals: Clinical Goals for the Shift: pt will remain HDS Summary: pt will remain HDS * Plan of Care - Kyung Pena RN - 03/01/2023 10:04 PM CDT Goals: Clinical Goals for the Shift: pt will remain hds Summary: Problem: Health Behavior: Goal: Understanding of discharge needs will improve Outcome: Progressing Problem: Lack of Knowledge: Goal: Ability to state ways to decrease the risk of falls will improve Outcome: Progressing Problem: Safety: Goal: Will remain free from falls Outcome: Progressing Goal: Will remain free from injury from falls Outcome: Progressing Goal: Will remain free from falls and injury in home environment Outcome: Progressing Problem: Activity: Goal: Mobility will improve Outcome: Progressing Problem: Lack of Knowledge: Goal: Understanding of ways to prevent future skin breakdown will improve Outcome: Progressing Goal: Ability to identify appropriate dietary choices will improve Outcome: Progressing Problem: Nutritional: Goal: Dietary intake will improve Outcome: Progressing Goal: Ability to maintain a balanced intake and output will improve Outcome: Progressing Problem: Skin Integrity: Goal: Risk for impaired skin integrity will decrease Outcome: Progressing Goal: Ability to demonstrate warm and dry skin will improve Outcome: Progressing Goal: Circulation will improve to fullest extent possible Outcome: Progressing Problem: Cardiac: Goal: Ability to maintain an adequate cardiac output will improve Outcome: Progressing Goal: Hemodynamic stability will improve Outcome: Progressing Problem: Lack of Knowledge: Goal: Ability to state signs and symptoms to report to health care provider will improve Outcome: Progressing Goal: Knowledge of the prescribed therapeutic regimen will improve Outcome: Progressing Goal: Mental status will improve Outcome: Progressing Problem: Lack of Knowledge: Goal: Ability to develop a pain control plan will improve Outcome: Progressing Goal: Ability to identify pain intensity on a pain scale and rate it consistently will improve Outcome: Progressing Goal: Ability to notify healthcare provider of pain before it becomes unmanageable or unbearable will improve Outcome: Progressing Problem: Medication: Goal: Satisfaction with pain management regimen will improve Outcome: Progressing Problem: Sensory: Goal: Ability to identify factors that increase the pain will improve Outcome: Progressing Goal: Pain level will decrease Outcome: Progressing Problem: Activity: Goal: Ability to return to normal activity level will improve Outcome: Progressing Problem: Lack of Knowledge: Goal: Knowledge of the prescribed therapeutic regimen will improve Outcome: Progressing Problem: Coping: Goal: Ability to cope will improve Outcome: Progressing Problem: Health Behavior: Goal: Identification of resources available to assist in meeting health care needs will improve Outcome: Progressing Problem: Sensory: Goal: Pain level will decrease Outcome: Progressing * Plan of [facility] - Karen Ventura RN - 03/01/2023 9:52 AM CDT Problem: Health Behavior: Goal: Understanding of discharge needs will improve Outcome: Progressing Problem: Lack of Knowledge: Goal: Ability to state ways to decrease the risk of falls will improve Outcome: Progressing Problem: Safety: Goal: Will remain free from falls Outcome: Progressing Goal: Will remain free from injury from falls Outcome: Progressing Goal: Will remain free from falls and injury in home environment Outcome: Progressing Problem: Activity: Goal: Mobility will improve Outcome: Progressing Problem: Lack of Knowledge: Goal: Understanding of ways to prevent future skin breakdown will improve Outcome: Progressing Goal: Ability to identify appropriate dietary choices will improve Outcome: Progressing Problem: Nutritional: Goal: Dietary intake will improve Outcome: Progressing Goal: Ability to maintain a balanced intake and output will improve Outcome: Progressing Problem: Skin Integrity: Goal: Risk for impaired skin integrity will decrease Outcome: Progressing Goal: Ability to demonstrate warm and dry skin will improve Outcome: Progressing Goal: Circulation will improve to fullest extent possible Outcome: Progressing Problem: Cardiac: Goal: Ability to maintain an adequate cardiac output will improve Outcome: Progressing Goal: Hemodynamic stability will improve Outcome: Progressing Problem: Lack of Knowledge: Goal: Ability to state signs and symptoms to report to health care provider will improve Outcome: Progressing Goal: Knowledge of the prescribed therapeutic regimen will improve Outcome: Progressing Goal: Mental status will improve Outcome: Progressing Problem: Lack of Knowledge: Goal: Ability to develop a pain control plan will improve Outcome: Progressing Goal: Ability to identify pain intensity on a pain scale and rate it consistently will improve Outcome: Progressing Goal: Ability to notify healthcare provider of pain before it becomes unmanageable or unbearable will improve Outcome: Progressing Problem: Medication: Goal: Satisfaction with pain management regimen will improve Outcome: Progressing Problem: Sensory: Goal: Ability to identify factors that increase the pain will improve Outcome: Progressing Goal: Pain level will decrease Outcome: Progressing Problem: Activity: Goal: Ability to return to normal activity level will improve Outcome: Progressing Problem: Lack of Knowledge: Goal: Knowledge of the prescribed therapeutic regimen will improve Outcome: Progressing Problem: Coping: Goal: Ability to cope will improve Outcome: Progressing Problem: Health Behavior: Goal: Identification of resources available to assist in meeting health care needs will improve Outcome: Progressing Problem: Sensory: Goal: Pain level will decrease Outcome: Progressing Goals: Clinical Goals for the Shift: pt will remain hds Summary: pt will remain HDS * Plan of Care - Clarissa Hopkins RN - 03/01/2023 9:49 AM CDT Weekend CM Note: Per medical team, patient is medically stable for DC. CM followed up with [facility] liaison, , to check status of [employer] auth that was submitted 02/28. Per [facility], [facility] denied Rehab as of late yesterday evening. Will need patient to sign appeal form first thing Friday ([employer] not available for review this weekend). [employer] expects a quick response (24 hours) once appeal submitted. Please call covering weekend CM for any needs. * Plan of Care - Leonard Busch RN - 02/28/2023 7:45 PM CDT Goals: Clinical Goals for the Shift: pt will remain HDS Summary: * Plan of Care - Baylee Burkett RN - 02/28/2023 4:29 PM CDT Per Medical Chart/Rounds/IDR: Patient is medically ready. ADD: 03/01 Plan/referrals made/in place: Inpatient Rehab referral sent to [facility]. Insurance auth started 02/28. Support following discharge: Family Transportation: To be arranged - EMS F/U Appointments: To be determined Plan for weekend discharge: [facility]. CM to call [employer] ([phone]) to see if there is insurance auth. For weekend assistance, please check the treatment team in [facility] for the assigned cyanide case hardener or contact the weekend Case Management phone * Plan of [facility] - Karen Ventura RN - 02/28/2023 8:50 AM CDT Problem: Health Behavior: Goal: Understanding of discharge needs will improve Outcome: Progressing Problem: Lack of Knowledge: Goal: Ability to state ways to decrease the risk of falls will improve Outcome: Progressing Problem: Safety: Goal: Will remain free from falls Outcome: Progressing Goal: Will remain free from injury from falls Outcome: Progressing Goal: Will remain free from falls and injury in home environment Outcome: Progressing Problem: Activity: Goal: Mobility will improve Outcome: Progressing Problem: Lack of Knowledge: Goal: Understanding of ways to prevent future skin breakdown will improve Outcome: Progressing Goal: Ability to identify appropriate dietary choices will improve Outcome: Progressing Problem: Nutritional: Goal: Dietary intake will improve Outcome: Progressing Goal: Ability to maintain a balanced intake and output will improve Outcome: Progressing Problem: Skin Integrity: Goal: Risk for impaired skin integrity will decrease Outcome: Progressing Goal: Ability to demonstrate warm and dry skin will improve Outcome: Progressing Goal: Circulation will improve to fullest extent possible Outcome: Progressing Problem: Cardiac: Goal: Ability to maintain an adequate cardiac output will improve Outcome: Progressing Goal: Hemodynamic stability will improve Outcome: Progressing Problem: Lack of Knowledge: Goal: Ability to state signs and symptoms to report to health care provider will improve Outcome: Progressing Goal: Knowledge of the prescribed therapeutic regimen will improve Outcome: Progressing Goal: Mental status will improve Outcome: Progressing Problem: Lack of Knowledge: Goal: Ability to develop a pain control plan will improve Outcome: Progressing Goal: Ability to identify pain intensity on a pain scale and rate it consistently will improve Outcome: Progressing Goal: Ability to notify healthcare provider of pain before it becomes unmanageable or unbearable will improve Outcome: Progressing Problem: Medication: Goal: Satisfaction with pain management regimen will improve Outcome: Progressing Problem: Sensory: Goal: Ability to identify factors that increase the pain will improve Outcome: Progressing Goal: Pain level will decrease Outcome: Progressing Problem: Activity: Goal: Ability to return to normal activity level will improve Outcome: Progressing Problem: Lack of Knowledge: Goal: Knowledge of the prescribed therapeutic regimen will improve Outcome: Progressing Problem: Coping: Goal: Ability to cope will improve Outcome: Progressing Problem: Health Behavior: Goal: Identification of resources available to assist in meeting health care needs will improve Outcome: Progressing Problem: Sensory: Goal: Pain level will decrease Outcome: Progressing Goals: Clinical Goals for the Shift: pt will remain HDS Summary: pt uses call light appropriately * Plan of Care - Jeimy Garcia RN - 02/27/2023 9:52 PM CDT Goals: Clinical Goals for the Shift: Pt will remain hds Summary: Patient participating in care plan goals. Patient verbalized education and is progressing towards goals. Problem: Health Behavior: Goal: Understanding of discharge needs will improve Outcome: Progressing Problem: Lack of Knowledge: Goal: Ability to state ways to decrease the risk of falls will improve Outcome: Progressing Problem: Safety: Goal: Will remain free from falls Outcome: Progressing Goal: Will remain free from injury from falls Outcome: Progressing Goal: Will remain free from falls and injury in home environment Outcome: Progressing Problem: Activity: Goal: Mobility will improve Outcome: Progressing Problem: Lack of Knowledge: Goal: Understanding of ways to prevent future skin breakdown will improve Outcome: Progressing Goal: Ability to identify appropriate dietary choices will improve Outcome: Progressing Problem: Nutritional: Goal: Dietary intake will improve Outcome: Progressing Goal: Ability to maintain a balanced intake and output will improve Outcome: Progressing Problem: Skin Integrity: Goal: Risk for impaired skin integrity will decrease Outcome: Progressing Goal: Ability to demonstrate warm and dry skin will improve Outcome: Progressing Goal: Circulation will improve to fullest extent possible Outcome: Progressing Problem: Cardiac: Goal: Ability to maintain an adequate cardiac output will improve Outcome: Progressing Goal: Hemodynamic stability will improve Outcome: Progressing Problem: Lack of Knowledge: Goal: Ability to state signs and symptoms to report to health care provider will improve Outcome: Progressing Goal: Knowledge of the prescribed therapeutic regimen will improve Outcome: Progressing Goal: Mental status will improve Outcome: Progressing Problem: Lack of Knowledge: Goal: Ability to develop a pain control plan will improve Outcome: Progressing Goal: Ability to identify pain intensity on a pain scale and rate it consistently will improve Outcome: Progressing Goal: Ability to notify healthcare provider of pain before it becomes unmanageable or unbearable will improve Outcome: Progressing Problem: Medication: Goal: Satisfaction with pain management regimen will improve Outcome: Progressing Problem: Sensory: Goal: Ability to identify factors that increase the pain will improve Outcome: Progressing Goal: Pain level will decrease Outcome: Progressing Problem: Activity: Goal: Ability to return to normal activity level will improve Outcome: Progressing Problem: Lack of Knowledge: Goal: Knowledge of the prescribed therapeutic regimen will improve Outcome: Progressing Problem: Coping: Goal: Ability to cope will improve Outcome: Progressing Problem: Health Behavior: Goal: Identification of resources available to assist in meeting health care needs will improve Outcome: Progressing Problem: Sensory: Goal: Pain level will decrease Outcome: Progressing * Plan of Care - Petty Palma RN - 02/27/2023 8:15 AM CDT Problem: Lack of Knowledge: Goal: Ability to state ways to decrease the risk of falls will improve Outcome: Progressing Problem: Safety: Goal: Will remain free from falls Outcome: Progressing Goal: Will remain free from injury from falls Outcome: Progressing Goal: Will remain free from falls and injury in home environment Outcome: Progressing Problem: Activity: Goal: Mobility will improve Outcome: Progressing Problem: Lack of Knowledge: Goal: Understanding of ways to prevent future skin breakdown will improve Outcome: Progressing Goal: Ability to identify appropriate dietary choices will improve Outcome: Progressing Problem: Nutritional: Goal: Dietary intake will improve Outcome: Progressing Goal: Ability to maintain a balanced intake and output will improve Outcome: Progressing Problem: Skin Integrity: Goal: Risk for impaired skin integrity will decrease Outcome: Progressing Goal: Ability to demonstrate warm and dry skin will improve Outcome: Progressing Goal: Circulation will improve to fullest extent possible Outcome: Progressing Problem: Cardiac: Goal: Ability to maintain an adequate cardiac output will improve Outcome: Progressing Goal: Hemodynamic stability will improve Outcome: Progressing Problem: Lack of Knowledge: Goal: Ability to develop a pain control plan will improve Outcome: Progressing Goal: Ability to identify pain intensity on a pain scale and rate it consistently will improve Outcome: Progressing Goal: Ability to notify healthcare provider of pain before it becomes unmanageable or unbearable will improve Outcome: Progressing Problem: Sensory: Goal: Ability to identify factors that increase the pain will improve Outcome: Progressing Goal: Pain level will decrease Outcome: Progressing Problem: Medication: Goal: Satisfaction with pain management regimen will improve Outcome: Progressing Problem: Activity: Goal: Ability to return to normal activity level will improve Outcome: Progressing Problem: Health Behavior: Goal: Identification of resources available to assist in meeting health care needs will improve Outcome: Progressing Problem: Sensory: Goal: Pain level will decrease Outcome: Progressing Goals: Clinical Goals for the Shift: Pt's heart rate will be better conmtroled Summary: Pt verbalized understanding of care plan and is participating in care. Will cont to monitor. * Plan of Care - Jeimy Garcia RN - 02/26/2023 10:22 PM CDT Goals: Clinical Goals for the Shift: pt will remain hds Summary: Patient participating in care plan goals. Patient verbalized education and is progressing towards goals. Problem: Health Behavior: Goal: Understanding of discharge needs will improve Outcome: Progressing Problem: Lack of Knowledge: Goal: Ability to state ways to decrease the risk of falls will improve Outcome: Progressing Problem: Safety: Goal: Will remain free from falls Outcome: Progressing Goal: Will remain free from injury from falls Outcome: Progressing Goal: Will remain free from falls and injury in home environment Outcome: Progressing Problem: Activity: Goal: Mobility will improve Outcome: Progressing Problem: Lack of Knowledge: Goal: Understanding of ways to prevent future skin breakdown will improve Outcome: Progressing Goal: Ability to identify appropriate dietary choices will improve Outcome: Progressing Problem: Nutritional: Goal: Dietary intake will improve Outcome: Progressing Goal: Ability to maintain a balanced intake and output will improve Outcome: Progressing Problem: Skin Integrity: Goal: Risk for impaired skin integrity will decrease Outcome: Progressing Goal: Ability to demonstrate warm and dry skin will improve Outcome: Progressing Goal: Circulation will improve to fullest extent possible Outcome: Progressing Problem: Cardiac: Goal: Ability to maintain an adequate cardiac output will improve Outcome: Progressing Goal: Hemodynamic stability will improve Outcome: Progressing Problem: Lack of Knowledge: Goal: Ability to state signs and symptoms to report to health care provider will improve Outcome: Progressing Goal: Knowledge of the prescribed therapeutic regimen will improve Outcome: Progressing Goal: Mental status will improve Outcome: Progressing Problem: Lack of Knowledge: Goal: Ability to develop a pain control plan will improve Outcome: Progressing Goal: Ability to identify pain intensity on a pain scale and rate it consistently will improve Outcome: Progressing Goal: Ability to notify healthcare provider of pain before it becomes unmanageable or unbearable will improve Outcome: Progressing Problem: Medication: Goal: Satisfaction with pain management regimen will improve Outcome: Progressing Problem: Sensory: Goal: Ability to identify factors that increase the pain will improve Outcome: Progressing Goal: Pain level will decrease Outcome: Progressing Problem: Activity: Goal: Ability to return to normal activity level will improve Outcome: Progressing Problem: Lack of Knowledge: Goal: Knowledge of the prescribed therapeutic regimen will improve Outcome: Progressing Problem: Coping: Goal: Ability to cope will improve Outcome: Progressing Problem: Health Behavior: Goal: Identification of resources available to assist in meeting health care needs will improve Outcome: Progressing Problem: Sensory: Goal: Pain level will decrease Outcome: Progressing * Plan of Care - Baylee Burkett RN - 02/26/2023 2:26 PM CDT [employer] noted patient has been recommended for Inpatient Rehab by PT/OT. [employer] met withthe patient at bedside to discussion recommendations by therapy and to work on a potential discharge disposition plan. [employer] provided education to patient/family on the rehabilitation process.Patient reported she was interested in placement for rehabilitation. science manager provided a facility list to patient. [facility]. CM awaiting acceptance and will continue to work on discharge planning with patient and family. * [facility] Note - Baylee Burkett RN - 02/26/2023 2:22 PM CDT Images from the original note were not included. Patient Information: OT Eval and Treat Last 72 Hours OT Evaluation Row Name 02/24/23 2784 Chart Reviewed Yes -JR Session Type Evaluation -JR OT Received On 02/24/23 -JR Safe Environment Arm band checked;Patient found sitting in chair -JR Subjective Agreeable to Therapy -JR Family/Caregiver Present No -JR Occupational Therapy-Patient Goal Get stronger. 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 -JR Fall within the last 6 months Yes -JR Fall within the last 6 months comment 1 recent fall resulting in R radial fracture -JR ADLS (WDL) X -JR Grooming: Where assessed Standing at sink -JR Grooming: Level of assistance Minimum Assist -JR Grooming: Assistance with Safety;Other (Comment) balance -JR LE Dressing: Where assessed Chair -JR LE Dressing: Level of assistance Moderate Assist -JR LE Dressing: Assistance with Don/doff R sock;Thread RLE into pants;Pull up over hips;Safety balance-JR Toilet Transfers Not tested -JR Pain Assessment No/denies pain -JR Activity Tolerance Comments Isaak- LE dress -JR Arousal/Alertness Alert;Appropriate responses to stimuli - Attention Span Appears intact -JR Orientation Oriented X4 (person, place, time, situation) -JR Following Commands Follows all commands and directions without difficulty -JR Safety Judgment Good awareness of safety precautions -JR Compliance/Behavior Easy to engage -JR Balance Yes -JR Dynamic Sitting-Balance Support No upper extremity supported;Feet supported -JR Dynamic Sitting-Balance Forward lean;Reaching for objects;Reaching across midline -JR Dynamic Sitting-Sitting Surface Chair -JR Dynamic Sitting-Level of Assistance Close supervision -JR Dynamic Standing-Balance Support Unilateral upper extremity supported -JR Dynamic Standing-Balance Forward lean;Reaching for objects -JR Dynamic Standing-Standing Surface Floor -JR Dynamic Standing-Level of Assistance Minimum assistance -JR Bed Mobility No -JR Transfer Yes -JR Transfer From 1 Sit -JR Transfer Type 1 To and from -JR Transfer to 1 Stand -JR Technique 1 Sit to stand;Stand to sit -JR Transfer Device 1 No device -JR Transfer Level of Assistance 1 Moderate Assist -JR Trials/Comments 1 Force production, balance -JR Trials/Comments 2 Simulated functional mobility performed with standing marches with min A for balance -JR RUE Assessment X Impacted 2/2 R radial fracture, no formal assessment performed - LUE Assessment WFL - Safe Environment End of Therapy Session Patient left in recliner;RN notified;Call light within reach;Overbed table within reach - Problem List Decreased endurance;Decreased balance;Decreased functional mobility;Decreased ADL independence;Decreased IADL independence;Decreased upper extremity strength;Decreased upper extremity range of motion -JR Barriers to Discharge Current Mobility Status - Plan Plan of care initiated;If this is the last note, consider this the discharge summary -JR OT Recommendation Inpatient Rehab Facility -JR Patient at high risk for Falls;Readmission;Injury due to decreased ability to care for self;Injury due to reduced functional status;Injury due to balance deficits;Developing impaired skin integrity;Injury at home as patient has not returned to prior level of function -JR Recommend Inpatient Rehab/Acute Rehab due to Ability to actively participate in intensive therapy 3hours/day, 5 days/week or 900 minutes per week;Highly motivated to participate in therapy;Not at baseline due to impaired ability to complete ADLs;Impaired ability to complete functional mobility;Likely to return to the community at discharge with support system in place;Requires greater than 25% physical assistance with most mobility tasks;Requires multiple therapy disciplines to address functional deficits;Requires greater than 25% physical assistance with most ADL tasks -JR OT Frequency during current admission 3-5x/wk -JR Treatment/Interventions during current admission ADL/IADL retraining;Balance Training;Bed mobility;Endurance training;Functional activity;Functional transfer training;Functional mobility training;Strengthening;Therapeutic activity;Therapeutic exercise -JR OT - Next Appointment 02/26/23 -JR OT - OK to Discharge No -JR OT Evaluation Complete Yes -JR User Martinez (r) = Recorded By, (t) = Taken By, (c) = Cosigned By Initials Name Effective Dates JR Sami Moreau OT 01/23/23 - OT Treatment No documentation. OT Notes 02/24/2023 2:13 PM Progress Notes signed by Sami Moreau OT , PT Eval and Treat Last 72 Hours PT Evaluation Row Name 02/20/23 9675 Chart Reviewed Yes -KR Session Type Evaluation -KR Safe Environment Arm band checked;Patient found in supine;Session completed bedside;Gait belt not utilized, see comment -KR Subjective Agreeable to Therapy -KR Family/Caregiver Present No -KR Physical Therapy-Patient Goal To be able to get up and move -KR Precautions Fall risk;Cardiac -KR Type of Home Assisted Living Facility -KR Home Layout Multi-level Lives on third floor -KR Home Access Elevator -KR Home Mobility Equipment-Available Quad cane-large base -KR Home Mobility Equipment-Currently Using Other (Comment) Rollator -KR Level of [place] Independent with ADLs;Independent functional transfers;Needs assistance with ambulation;Needs assistance with homemaking -KR Lives With Alone -KR Receives Help From Family Son -KR Fall within the last 6 months Yes -KR Fall within the last 6 months comment Syncopal episode with R radial fracture -KR Activity Tolerance Comments Isaak: 01/23 for bed to chair transfer, STS with marching -KR Pain Assessment No/denies pain -KR Arousal/Alertness Alert;Appropriate responses to stimuli -KR Orientation Oriented X4 (person, place, time, situation) -KR Following Commands Follows all commands and directions without difficulty -KR Safety Judgment Good awareness of safety precautions -KR Compliance/Behavior Easy to engage -KR Light Touch WFL -KR Numbness/Tingling No -KR Sensation Comments Skin intact, ecchymosis over R knee due to fall on R knee when fractured R radius, pitting edema noted in BLE -KR Balance Yes -KR Static Sitting-Balance Support Unilateral upper extremity supported;Feet supported -KR Static Sitting-Sitting Surface Bed -KR Static Sitting-Level of Assistance Contact guard -KR Static Sitting-Comment/# of Minutes x3 min, assist for balance and safety, VC for upright posture -KR Static Standing-Balance Support Bilateral upper extremity supported -KR Static Standing-Standing Surface Floor -KR Static Standing-Level of Assistance Moderate assistance x2 -KR Static Standing-Comment/# of Minutes x30 sec, manual assist and VC to correct retropulsion, assist for balance and safety -KR ICU Mobility Scale 6 -KR Rolling 3 -KR Supine to Sit 3 -KR Sitting 4 -KR Sit to Stand 3 -KR Ambulation or Wheelchair Mobility? Ambulation -KR Ambulation 0 -KR FSS Interpretation 13 -KR Bed Mobility Yes -KR Bed Mobility From 1 Supine -KR Bed Mobility Type 1 To -KR Bed Mobility to 1 Edge of bed -KR Level of Assistance 1 Moderate Assist -KR Bed Mobility Comments 1 Assist required for RLE management, trunk elevation, and hip alignment -KR Transfer Yes -KR Transfer From 1 Sit -KR Transfer Type 1 To and from -KR Transfer to 1 Stand -KR Technique 1 Sit to stand;Stand to sit -KR Transfer Device 1 Hand held assist -KR Transfer Level of Assistance 1 Moderate Assist x2 -KR Trials/Comments 1 x2 trials, assist for force production, correcting retropulsion, VC for upright posture. Marching x10 reps on 2nd trial -KR Transfer From 2 Bed -KR Transfer Type 2 To -KR Transfer to 2 Chair with arms -KR Technique 2 Stand and step -KR Transfer Device 2 Hand held assist -KR Transfer Level of Assistance 2 Moderate Assist x2 -KR Trials/Comments 2 Assist for force production and weight shifting to step. -KR Ambulation No Deferred due to weakness and rhythm induced dizziness -KR Stairs No -KR RLE Assessment WFL -KR LLE Assessment WFL -KR Other PT Comments VSS throughout. Pt noted slight dizziness and feeling woozy with upright postures during sitting EOB, standing, and marching; however, BP remained stable. -KR How much difficulty does the patient have: Turning over in bed 2 -KR How much difficulty does the patient currently have: Sitting down and standing up from a chair witharms? 2 -KR How much difficulty does the patient have: Moving from lying on back to sitting on the side of the bed? 2 -KR How much difficulty does the patient have: Moving to and from a bed to a chair including wheelchair? 2 -KR How much help does the patient currently need: Walk in hospital room? 2 -KR How much help from another person does the patient currently need: Climbing 3-5 steps with a railing? 1 -KR Total 6 Click Score (range 6-24) 11 -KR Score Interpretation 30.25 -KR Safe Environment End of Therapy Session Patient left in chair;RN notified;Call light within reach;Overbed table within reach -KR Prognosis Good -KR Problem List Gait deviations;Decreased strength;Decreased endurance;Decreased range of motion;Impaired balance;Decreased mobility;Orthopedic restrictions;Edema -KR Barriers to Discharge Current Mobility Status -KR Plan Plan of care initiated;If this is the last note, consider this the discharge summary -KR PT Recommendation/Plan Inpatient Rehab Facility -KR Patient at high risk for Falls;Readmission;Injury due to decreased ability to care for self;Injury due to reduced functional status;Injury due to balance deficits;Injury at home as patient has not returned to prior level of function -KR Recommend Inpatient Rehab/Acute Rehab due to Ability to actively participate in intensive therapy 3hours/day, 5 days/week or 900 minutes per week;Highly motivated to participate in therapy;Not at baseline due to impaired ability to complete ADLs;Impaired ability to complete functional mobility;Requires greater than 25% physical assistance with most mobility tasks -KR PT Frequency during current admission 5-7x/wk -KR Treatment/Interventions during current admission Balance Training;Bed mobility;Compensatory technique education;Equipment eval/education;Endurance training;Functional activity;Functional transfer training;Gait training;Massage;Parent/caregiver training and education;Positioning;Strengthening;Therapeutic activity;Therapeutic exercise;Transfer training -KR PT Equipment Recommended Wheeled walker;Other (Comment) With platform for R elbow WBing due to R radius Fx. Currently, only has rollator which cannot be modified -KR PT - OK to Discharge No -KR PT Evaluation Complete Yes -KR User Martinez (r) = Recorded By, (t) = Taken By, (c) = Cosigned By Initials Name Effective Dates Mare Samuels 01/29/23 - PT TREATMENT (last 168 hours) PT Treatment Row Name 02/24/23 1014 02/21/23 0909 PT Last Visit Session Type Treatment -MJ Treatment -HE Safe Environment Arm band checked;Patient found sitting in chair;Session completed bedside;Gait belt not utilized, see comment - Arm band checked;Patient found in supine;Session completed bedside;Gait belt not utilized, see comment -HE Subjective Agreeable to Therapy -MJ Agreeable to Therapy -HE Family/Caregiver Present No -MJ No -HE Precautions Precautions Fall risk - Fall risk -HE Weight Bearing Restrictions -- Yes -HE RUE Weight Bearing -- NWB NWB in R hand, elbow okay for PFW WBing -HE LUE Weight Bearing Other (Comments) - -- RLE Weight Bearing -- WB R hand, OK for platform weight bearing through the elbow - -- Activity Tolerance Activity Tolerance Comments -- ISAAK: Fairly Light -HE Pain Assessment Pain Assessment No/denies pain - 0-10 -HE Pain Score -- 5 - Moderate pain -HE Pain Location -- Leg -HE Pain Orientation -- Right -HE Pain Descriptors -- Sore -HE Pain Interventions -- Repositioned;Physical Therapy -HE Cognition Arousal/Alertness Alert;Appropriate responses to stimuli - Alert;Appropriate responses to stimuli-HE Orientation Oriented X4 (person, place, time, situation) - Oriented X4 (person, place, time, situation) -HE Following Commands Follows all commands and directions without difficulty - Follows all commands and directions without difficulty -HE Compliance/Behavior Easy to engage - Easy to engage -HE Balance Balance -- Yes -HE Static Sitting Balance Static Sitting-Balance Support No upper extremity supported;Feet supported - No upper extremity supported;Feet supported - Static Sitting-Sitting Surface Bed - Bed -HE Static Sitting-Level of Assistance Close supervision - Close supervision - Static Sitting-Comment/# of Minutes -- to ensure safety -HE Static Standing Balance Static Standing-Balance Support Bilateral upper extremity supported - Bilateral upper extremity supported - Static Standing-Standing Surface Floor - Floor -HE Static Standing-Level of Assistance Minimum assistance - Minimum assistance - Static Standing-Comment/# of Minutes with - to ensure safety and for balance -HE ICU Mobility Scale ICU Mobility Scale -- 7 -HE FSS-ICU Functional Status Score (ICU scale) Rolling -- 3 -HE Supine to Sit -- 3 -HE Sitting -- 5 -HE Sit to Stand -- 4 -HE Ambulation or Wheelchair Mobility? -- Ambulation -HE Ambulation -- 1 -HE Bed Mobility Bed Mobility -- Yes -HE Bed Mobility 1 Bed Mobility From 1 Supine - Supine -HE Bed Mobility Type 1 To - To -HE Bed Mobility to 1 Edge of bed - Edge of bed -HE Level of Assistance 1 Moderate Assist - Moderate Assist -HE Bed Mobility Comments 1 unable to progress RLE to EOB, dep assist for RLE - Mod A for R LE management, trunk elevation and scooting hips -HE Transfers Transfer -- Yes -HE Transfer 1 Transfer From 1 Sit - Sit -HE Transfer Type 1 To and from [facility] To and from -HE Transfer to 1 Stand - Stand -HE Technique 1 Sit to stand;Stand to sit -MJ Sit to stand;Stand to sit -HE Transfer Device 1 Hand held assist - Hand held assist -HE Transfer Level of Assistance 1 Moderate Assist - Minimum Assist x2 -HE Trials/Comments 1 x3 reps -MJ min Ax2, 3 reps, assist for force production. Marched 10 reps on 2nd trial -HE Transfers 2 Transfer From 2 Bed -MJ Bed -HE Transfer Type 2 To - To -HE Transfer to 2 Chair with arms - Chair with arms -HE Technique 2 Stand and step -MJ Stand and step -HE Transfer Device 2 Hand held assist -MJ Hand held assist -HE Transfer Level of Assistance 2 Minimum Assist - Minimum Assist x2 -HE Trials/Comments 2 -- assist for force production and balance -HE Ambulation Ambulation -- Yes -HE Ambulation 1 Distance (ft) 1 50 -MJ 10 -HE Surface 1 Level tile - Level tile - Device 1 Wheeled walker;Platform attachment right - Hand held assist -HE Other Apparatus 1 Wheelchair follow - -- Assistance 1 Minimum Assist;Minimal verbal cues;Minimal tactile cues - Minimum Assist x2 -HE Gait: Requires assist with 1 Maintaining balance;Maintaining hip extension - Maintaining balance;Weight shifting;Maintaining hip extension - Gait: Requires verbal cues to 1 Use assistive device safely;Improve upright posture;Pace activity - Pace activity - Gait Deviations 1 Roma - decreased;Heel strike - decreased;Lateral trunk lean/sway;Posture - flexed;Shuffling;Step length - decreased - Base of support - decreased;Roma - decreased;Heel strike - decreased;Lateral trunk lean/sway;Step length - decreased - Ambulation Comments 1 decreased roma due to R knee pain/decreased ROM - min Ax2 to walk in room, out and back from chair. -HE Stairs Stairs -- No -HE Other Comments Other PT Comments VSS throughout with continued notable progression of mobility. -MJ VSS throughout. Pt notes some dizziness after sitting up and standing but notes it is improved compared to yesterday's session. -HE Basic Mobility - 6 Click How much difficulty does the patient have: Turning over in bed 2 -MJ 2 -HE How much difficulty does the patient currently have: Sitting down and standing up from a chair witharms? 3 -MJ 3 -HE How much difficulty does the patient have: Moving from lying on back to sitting on the side of the bed? 2 -MJ 2 -HE How much difficulty does the patient have: Moving to and from a bed to a chair including wheelchair? 3 -MJ 3 -HE How much help does the patient currently need: Walk in hospital room? 3 -MJ 3 -HE How much help from another person does the patient currently need: Climbing 3-5 steps with a railing? 2 -MJ 2 -HE Total 6 Click Score (range 6-24) 15 -MJ 15 -HE Score Interpretation 36.97 -MJ 36.97 -HE Safe Environment End of Therapy Session Safe Environment End of Therapy Session Patient left in chair;RN notified;Call light within reach;Overbed table within reach -MJ Patient left in recliner;RN notified;Call light within reach;Overbed table within reach -HE Assessment Prognosis Good -MJ Good -HE Problem List Gait deviations;Decreased strength;Decreased endurance;Impaired balance;Decreased mobility - Gait deviations;Decreased strength;Decreased endurance;Impaired balance;Decreased mobility -HE Barriers to Discharge Current Mobility Status - -- Plan Plan Alter current plan;If this is the last note, consider this the discharge summary - Continue with current plan;If this is the last note, consider this the discharge summary - Recommendation/Plan PT Recommendation/Plan Inpatient Rehab Facility - Inpatient Rehab Facility - Patient at high risk for Falls;Readmission;Injury due to reduced functional status;Injury due to balance deficits;Injury at home as patient has not returned to prior level of function;Developing impaired skin integrity - Falls;Readmission;Injury due to decreased ability to care for self;Injury due to reduced functional status;Injury due to balance deficits;Injury at home as patient has not returned to prior level of function - Recommend Inpatient Rehab/Acute Rehab due to Ability to actively participate in intensive therapy 3hours/day, 5 days/week or 900 minutes per week;Highly motivated to participate in therapy;Not at baseline due to impaired ability to complete ADLs;Impaired ability to complete functional mobility;Likely to return to the community at discharge with support system in place;Requires greater than 25% physical assistance with most mobility tasks;Requires greater than 25% physical assistance with most ADL tasks - Ability to actively participate in intensive therapy 3 hours/day, 5 days/week or 900 minutes per week;Highly motivated to participate in therapy;Impaired ability to complete functional mo bility;Likely to return to the community at discharge with support system in place;Requires greaterthan 25% physical assistance with most mobility tasks - PT Frequency during current admission 3-5x/wk -MJ 5-7x/wk -HE Treatment/Interventions during current admission Balance Training;Bed mobility;Endurance training;Functional activity;Functional transfer training;Gait training;Stair training;Strengthening;Therapeutic activity;Therapeutic exercise;Transfer training -MJ Balance Training;Bed mobility;Endurance training;Functional activity;Functional transfer training;Gait training;Neuromuscular re-education;Stair t raining;Strengthening;Therapeutic activity;Therapeutic exercise - PT Equipment Recommended Wheeled walker with RUE platform attachment -MJ -- Progress during current admission Progressing toward goals -MJ -- PT - OK to Discharge No -MJ -- User Martinez (r) = Recorded By, (t) = Taken By, (c) = Cosigned By Initials Name Effective Dates HE Veronica Stevenson, BS 12/31/22 - Tisha Cole, PT 07/06/21 - PT Notes 02/24/2023 3:02 PM Progress Notes signed by Tisha Moore, PT * Significant Event - Giovana Chance MD - 02/26/2023 1:23 PM CDT Brief EP Note Primary team re-engaged EP for homegoing recommendations. She has undergone DCCV 02/25 with conversion to normal sinus rhythm, rates 50-60s. She received ~6 days of IV amiodarone at 1mg/min followed by 3600mg of oral amiodarone for adequate loading dose. 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 Stafford in 3-4 weeks EP will sign off at this time. Please re-engage EP if any further questions arise. Cosigned by Alejo Joseph MD at 02/27/2023 12:37 AM CDT * Plan of Care - Petty Palma RN - 02/26/2023 11:15 AM CDT Problem: Health Behavior: Goal: Understanding of discharge needs will improve Outcome: Progressing Problem: Lack of Knowledge: Goal: Ability to state ways to decrease the risk of falls will improve Outcome: Progressing Problem: Safety: Goal: Will remain free from falls Outcome: Progressing Goal: Will remain free from injury from falls Outcome: Progressing Goal: Will remain free from falls and injury in home environment Outcome: Progressing Problem: Activity: Goal: Mobility will improve Outcome: Progressing Problem: Lack of Knowledge: Goal: Understanding of ways to prevent future skin breakdown will improve Outcome: Progressing Goal: Ability to identify appropriate dietary choices will improve Outcome: Progressing Problem: Nutritional: Goal: Dietary intake will improve Outcome: Progressing Goal: Ability to maintain a balanced intake and output will improve Outcome: Progressing Problem: Skin Integrity: Goal: Risk for impaired skin integrity will decrease Outcome: Progressing Goal: Ability to demonstrate warm and dry skin will improve Outcome: Progressing Goal: Circulation will improve to fullest extent possible Outcome: Progressing Problem: Cardiac: Goal: Ability to maintain an adequate cardiac output will improve Outcome: Progressing Goal: Hemodynamic stability will improve Outcome: Progressing Problem: Lack of Knowledge: Goal: Ability to state signs and symptoms to report to health care provider will improve Outcome: Progressing Goal: Knowledge of the prescribed therapeutic regimen will improve Outcome: Progressing Goal: Mental status will improve Outcome: Progressing Problem: Medication: Goal: Satisfaction with pain management regimen will improve Outcome: Progressing Problem: Coping: Goal: Ability to cope will improve Outcome: Progressing Problem: Lack of Knowledge: Goal: Knowledge of the prescribed therapeutic regimen will improve Outcome: Progressing Goals: Clinical Goals for the Shift: Pt's heart rate will be better conmtroled Summary: Pt verbalized understanding of care plan and is participating in care. Will cont to monitor. * Plan of Care - Kiana Cardoso RN - 02/26/2023 1:12 AM CDT Goals: Clinical Goals for the Shift: pt will remain HDS Summary: Patient participating in care plan goals. Patient verbalized education and is progressing towards goals. Problem: Health Behavior: Goal: Understanding of discharge needs will improve Outcome: Progressing Problem: Lack of Knowledge: Goal: Ability to state ways to decrease the risk of falls will improve Outcome: Progressing Problem: Safety: Goal: Will remain free from falls Outcome: Progressing Goal: Will remain free from injury from falls Outcome: Progressing Goal: Will remain free from falls and injury in home environment Outcome: Progressing Problem: Activity: Goal: Mobility will improve Outcome: Progressing Problem: Lack of Knowledge: Goal: Understanding of ways to prevent future skin breakdown will improve Outcome: Progressing Goal: Ability to identify appropriate dietary choices will improve Outcome: Progressing Problem: Nutritional: Goal: Dietary intake will improve Outcome: Progressing Goal: Ability to maintain a balanced intake and output will improve Outcome: Progressing Problem: Skin Integrity: Goal: Risk for impaired skin integrity will decrease Outcome: Progressing Goal: Ability to demonstrate warm and dry skin will improve Outcome: Progressing Goal: Circulation will improve to fullest extent possible Outcome: Progressing Problem: Cardiac: Goal: Ability to maintain an adequate cardiac output will improve Outcome: Progressing Goal: Hemodynamic stability will improve Outcome: Progressing Problem: Lack of Knowledge: Goal: Ability to state signs and symptoms to report to health care provider will improve Outcome: Progressing Goal: Knowledge of the prescribed therapeutic regimen will improve Outcome: Progressing Goal: Mental status will improve Outcome: Progressing Problem: Lack of Knowledge: Goal: Ability to develop a pain control plan will improve Outcome: Progressing Goal: Ability to identify pain intensity on a pain scale and rate it consistently will improve Outcome: Progressing Goal: Ability to notify healthcare provider of pain before it becomes unmanageable or unbearable will improve Outcome: Progressing Problem: Medication: Goal: Satisfaction with pain management regimen will improve Outcome: Progressing Problem: Sensory: Goal: Ability to identify factors that increase the pain will improve Outcome: Progressing Goal: Pain level will decrease Outcome: Progressing Problem: Activity: Goal: Ability to return to normal activity level will improve Outcome: Progressing Problem: Lack of Knowledge: Goal: Knowledge of the prescribed therapeutic regimen will improve Outcome: Progressing Problem: Coping: Goal: Ability to cope will improve Outcome: Progressing Problem: Health Behavior: Goal: Identification of resources available to assist in meeting health care needs will improve Outcome: Progressing Problem: Sensory: Goal: Pain level will decrease Outcome: Progressing * Plan of Care - Vidya Rodriguez RN - 02/25/2023 4:12 PM CDT Problem: Safety: Goal: Will remain free from falls Outcome: Progressing Problem: Lack of Knowledge: Goal: Understanding of ways to prevent future skin breakdown will improve Outcome: Progressing Problem: Nutritional: Goal: Dietary intake will improve Outcome: Progressing Goal: Ability to maintain a balanced intake and output will improve Outcome: Progressing Problem: Skin Integrity: Goal: Circulation will improve to fullest extent possible Outcome: Progressing Problem: Cardiac: Goal: Ability to maintain an adequate cardiac output will improve Outcome: Progressing Problem: Lack of Knowledge: Goal: Mental status will improve Outcome: Progressing Problem: Lack of Knowledge: Goal: Ability to develop a pain control plan will improve Outcome: Progressing Problem: Coping: Goal: Ability to cope will improve Outcome: Progressing Goals: Clinical Goals for the Shift: NPO for pending HOOD today/possible3 cardioversion, encourage independence in adls, comfort, free from falls, up to chair with PT/OT as ordered, comfort, keep pt updated to plan of care, answer questions as posed' Summary: Received pt this am, Introduced self to pt with plan of care discussed, pt to go to CCL for HOOD and possible cardioversion. Pre-op care completed, pt returned to room after cardioversion with pt in NSR/ SB; VSS. Remains in bed today, reviewed fall precautions with pt remaining free from falls. Pt denied pain when asked, R arm kept elevated with pt denying numbness, tingling of fingers. Capillary refill less than <10 sec. Diet order obtained for dinner/awaiting serving time. Pt remains alert/oriented, aware she is on the move list./ or could be discharged home if bed does not become available. Call light within reach * Plan of Care - Julio César Pratt RN - 02/24/2023 10:08 PM CDT Problem: Health Behavior: Goal: Understanding of discharge needs will improve Outcome: Progressing Problem: Lack of Knowledge: Goal: Ability to state ways to decrease the risk of falls will improve Outcome: Progressing Problem: Safety: Goal: Will remain free from falls Outcome: Progressing Goal: Will remain free from injury from falls Outcome: Progressing Goal: Will remain free from falls and injury in home environment Outcome: Progressing Problem: Activity: Goal: Mobility will improve Outcome: Progressing Problem: Lack of Knowledge: Goal: Understanding of ways to prevent future skin breakdown will improve Outcome: Progressing Goal: Ability to identify appropriate dietary choices will improve Outcome: Progressing Problem: Nutritional: Goal: Dietary intake will improve Outcome: Progressing Goal: Ability to maintain a balanced intake and output will improve Outcome: Progressing Problem: Skin Integrity: Goal: Risk for impaired skin integrity will decrease Outcome: Progressing Goal: Ability to demonstrate warm and dry skin will improve Outcome: Progressing Goal: Circulation will improve to fullest extent possible Outcome: Progressing Problem: Cardiac: Goal: Ability to maintain an adequate cardiac output will improve Outcome: Progressing Goal: Hemodynamic stability will improve Outcome: Progressing Problem: Lack of Knowledge: Goal: Ability to state signs and symptoms to report to health care provider will improve Outcome: Progressing Goal: Knowledge of the prescribed therapeutic regimen will improve Outcome: Progressing Goal: Mental status will improve Outcome: Progressing Problem: Lack of Knowledge: Goal: Ability to develop a pain control plan will improve Outcome: Progressing Goal: Ability to identify pain intensity on a pain scale and rate it consistently will improve Outcome: Progressing Goal: Ability to notify healthcare provider of pain before it becomes unmanageable or unbearable will improve Outcome: Progressing Problem: Medication: Goal: Satisfaction with pain management regimen will improve Outcome: Progressing Problem: Sensory: Goal: Ability to identify factors that increase the pain will improve Outcome: Progressing Goal: Pain level will decrease Outcome: Progressing Problem: Activity: Goal: Ability to return to normal activity level will improve Outcome: Progressing Problem: Lack of Knowledge: Goal: Knowledge of the prescribed therapeutic regimen will improve Outcome: Progressing Problem: Coping: Goal: Ability to cope will improve Outcome: Progressing Problem: Health Behavior: Goal: Identification of resources available to assist in meeting health care needs will improve Outcome: Progressing Problem: Sensory: Goal: Pain level will decrease Outcome: Progressing Goals: Clinical Goals for the Shift: transfer to floor, safety, monitor labs, vanc trough * Plan of Care - Edita Weiner RN - 02/24/2023 10:48 AM CDT Goals: Clinical Goals for the Shift: transfer to floor, monitor labs Summary: Patient does not have a floor bed. Lab work remains stable Problem: Health Behavior: Goal: Understanding of discharge needs will improve Outcome: Progressing Problem: Lack of Knowledge: Goal: Ability to state ways to decrease the risk of falls will improve Outcome: Progressing Problem: Safety: Goal: Will remain free from falls Outcome: Progressing Goal: Will remain free from injury from falls Outcome: Progressing Goal: Will remain free from falls and injury in home environment Outcome: Progressing Problem: Activity: Goal: Mobility will improve Outcome: Progressing Problem: Lack of Knowledge: Goal: Understanding of ways to prevent future skin breakdown will improve Outcome: Progressing Goal: Ability to identify appropriate dietary choices will improve Outcome: Progressing Problem: Nutritional: Goal: Dietary intake will improve Outcome: Progressing Goal: Ability to maintain a balanced intake and output will improve Outcome: Progressing Problem: Skin Integrity: Goal: Risk for impaired skin integrity will decrease Outcome: Progressing Goal: Ability to demonstrate warm and dry skin will improve Outcome: Progressing Goal: Circulation will improve to fullest extent possible Outcome: Progressing Problem: Cardiac: Goal: Ability to maintain an adequate cardiac output will improve Outcome: Progressing Goal: Hemodynamic stability will improve Outcome: Progressing Problem: Lack of Knowledge: Goal: Ability to state signs and symptoms to report to health care provider will improve Outcome: Progressing Goal: Knowledge of the prescribed therapeutic regimen will improve Outcome: Progressing Goal: Mental status will improve Outcome: Progressing Problem: Lack of Knowledge: Goal: Ability to develop a pain control plan will improve Outcome: Progressing Goal: Ability to identify pain intensity on a pain scale and rate it consistently will improve Outcome: Progressing Goal: Ability to notify healthcare provider of pain before it becomes unmanageable or unbearable will improve Outcome: Progressing Problem: Medication: Goal: Satisfaction with pain management regimen will improve Outcome: Progressing Problem: Sensory: Goal: Ability to identify factors that increase the pain will improve Outcome: Progressing Goal: Pain level will decrease Outcome: Progressing Problem: Activity: Goal: Ability to return to normal activity level will improve Outcome: Progressing Problem: Lack of Knowledge: Goal: Knowledge of the prescribed therapeutic regimen will improve Outcome: Progressing Problem: Coping: Goal: Ability to cope will improve Outcome: Progressing Problem: Health Behavior: Goal: Identification of resources available to assist in meeting health care needs will improve Outcome: Progressing Problem: Sensory: Goal: Pain level will decrease Outcome: Progressing * Plan of Care - Katharina Glass RN - 02/23/2023 8:41 PM CDT Problem: Cardiac: Goal: Ability to maintain an adequate cardiac output will improve Outcome: Progressing Goal: Hemodynamic stability will improve Outcome: Progressing Goals: Clinical Goals for the Shift: transfer to floor, monitor labs Summary: patient resting in bed, no signs of pain, npo at 0000 for HOOD cardioversion, will continueto monitor. * Plan of Care - Edita Weiner RN - 02/23/2023 10:38 AM CDT Goals: Clinical Goals for the Shift: transfer to floor. Get OOBTC Summary: Patient is on the move list. Will get patient OOB this afternoon Problem: Health Behavior: Goal: Understanding of discharge needs will improve Outcome: Progressing Problem: Lack of Knowledge: Goal: Ability to state ways to decrease the risk of falls will improve Outcome: Progressing Problem: Safety: Goal: Will remain free from falls Outcome: Progressing Goal: Will remain free from injury from falls Outcome: Progressing Goal: Will remain free from falls and injury in home environment Outcome: Progressing Problem: Activity: Goal: Mobility will improve Outcome: Progressing Problem: Lack of Knowledge: Goal: Understanding of ways to prevent future skin breakdown will improve Outcome: Progressing Goal: Ability to identify appropriate dietary choices will improve Outcome: Progressing Problem: Nutritional: Goal: Dietary intake will improve Outcome: Progressing Goal: Ability to maintain a balanced intake and output will improve Outcome: Progressing Problem: Skin Integrity: Goal: Risk for impaired skin integrity will decrease Outcome: Progressing Goal: Ability to demonstrate warm and dry skin will improve Outcome: Progressing Goal: Circulation will improve to fullest extent possible Outcome: Progressing Problem: Cardiac: Goal: Ability to maintain an adequate cardiac output will improve Outcome: Progressing Goal: Hemodynamic stability will improve Outcome: Progressing Problem: Lack of Knowledge: Goal: Ability to state signs and symptoms to report to health care provider will improve Outcome: Progressing Goal: Knowledge of the prescribed therapeutic regimen will improve Outcome: Progressing Goal: Mental status will improve Outcome: Progressing Problem: Lack of Knowledge: Goal: Ability to develop a pain control plan will improve Outcome: Progressing Goal: Ability to identify pain intensity on a pain scale and rate it consistently will improve Outcome: Progressing Goal: Ability to notify healthcare provider of pain before it becomes unmanageable or unbearable will improve Outcome: Progressing Problem: Medication: Goal: Satisfaction with pain management regimen will improve Outcome: Progressing Problem: Sensory: Goal: Ability to identify factors that increase the pain will improve Outcome: Progressing Goal: Pain level will decrease Outcome: Progressing Problem: Activity: Goal: Ability to return to normal activity level will improve Outcome: Progressing Problem: Lack of Knowledge: Goal: Knowledge of the prescribed therapeutic regimen will improve Outcome: Progressing Problem: Coping: Goal: Ability to cope will improve Outcome: Progressing Problem: Health Behavior: Goal: Identification of resources available to assist in meeting health care needs will improve Outcome: Progressing Problem: Sensory: Goal: Pain level will decrease Outcome: Progressing * Plan of Care - Katharina Glass RN - 02/22/2023 8:28 PM CDT Problem: Lack of Knowledge: Goal: Ability to state ways to decrease the risk of falls will improve Outcome: Progressing Problem: Activity: Goal: Mobility will improve Outcome: Progressing Goals: Clinical Goals for the Shift: monitor left amd right arm, con't antibiotics, move out if bed available Summary: Patient resting in bed, complains of 5/10 pain to right arm, did not want pain meds at this time, itching to left arm. Left arm cellulitis site looks unchanged, Patient on move list. Will continue to monitor. * Significant Event - Bertha Haines MD - 02/22/2023 3:28 PM CDT Electrophysiology Sign-Off Note & Recommendations Patient Name: Tiera Lobato Date of : 1945 Cardiovascular Diagnosis: AF with RVR Inpatient Cardiology Attending: Dr. Joseph Summary of Consultation: Patient with MRSA bacteremia with cellulitis found to be in Afib with RVR. Getting IV amiodarone and deferring DCCV given possible surgical intervention Medication Recommendations: -Continue amiodarone Pending studies for follow-up by primary service or primary care provider: None Thank you for involving us in the care of this patient. If you have any additional questions or concerns during this admission, please contact the respective cardiology consult team listed on [employer] OR, from Friday-Friday, 7:30 am - 4:30 pm, you may reach the Cardiology Consult Line at . For patients or family members viewing this note: This note was written as a communication tool between health care providers and may contain technical language, terminology, and abbreviations that are difficult to interpret without advanced medicaltraining. If you have questions or concerns regarding what is written in this note, please contact our office, or, if you or your family member are admitted to the hospital, the primary team responsible for your care. * Plan of Care - Edita Weiner RN - 02/22/2023 9:45 AM CDT Goals: Clinical Goals for the Shift: OOB, n/v checks Summary: Patient's n/v checks remain stable Problem: Health Behavior: Goal: Understanding of discharge needs will improve Outcome: Progressing Problem: Lack of Knowledge: Goal: Ability to state ways to decrease the risk of falls will improve Outcome: Progressing Problem: Safety: Goal: Will remain free from falls Outcome: Progressing Goal: Will remain free from injury from falls Outcome: Progressing Goal: Will remain free from falls and injury in home environment Outcome: Progressing Problem: Activity: Goal: Mobility will improve Outcome: Progressing Problem: Lack of Knowledge: Goal: Understanding of ways to prevent future skin breakdown will improve Outcome: Progressing Goal: Ability to identify appropriate dietary choices will improve Outcome: Progressing Problem: Nutritional: Goal: Dietary intake will improve Outcome: Progressing Goal: Ability to maintain a balanced intake and output will improve Outcome: Progressing Problem: Skin Integrity: Goal: Risk for impaired skin integrity will decrease Outcome: Progressing Goal: Ability to demonstrate warm and dry skin will improve Outcome: Progressing Goal: Circulation will improve to fullest extent possible Outcome: Progressing Problem: Cardiac: Goal: Ability to maintain an adequate cardiac output will improve Outcome: Progressing Goal: Hemodynamic stability will improve Outcome: Progressing Problem: Lack of Knowledge: Goal: Ability to state signs and symptoms to report to health care provider will improve Outcome: Progressing Goal: Knowledge of the prescribed therapeutic regimen will improve Outcome: Progressing Goal: Mental status will improve Outcome: Progressing Problem: Lack of Knowledge: Goal: Ability to develop a pain control plan will improve Outcome: Progressing Goal: Ability to identify pain intensity on a pain scale and rate it consistently will improve Outcome: Progressing Goal: Ability to notify healthcare provider of pain before it becomes unmanageable or unbearable will improve Outcome: Progressing Problem: Medication: Goal: Satisfaction with pain management regimen will improve Outcome: Progressing Problem: Sensory: Goal: Ability to identify factors that increase the pain will improve Outcome: Progressing Goal: Pain level will decrease Outcome: Progressing Problem: Activity: Goal: Ability to return to normal activity level will improve Outcome: Progressing Problem: Lack of Knowledge: Goal: Knowledge of the prescribed therapeutic regimen will improve Outcome: Progressing Problem: Coping: Goal: Ability to cope will improve Outcome: Progressing Problem: Health Behavior: Goal: Identification of resources available to assist in meeting health care needs will improve Outcome: Progressing Problem: Sensory: Goal: Pain level will decrease Outcome: Progressing * Significant Event - Eliud Pires MD - 02/22/2023 4:48 AM CDT ICU TO MEDICINE HANDOFF TOOL Primary reason for ICU admission: Afib with RVR and hemodynamic instability Brief ICU HPI: Tiera Lobato is a 77 y.o. female with a PMH of pAF, Apical variant HCM, CAD with OR in 2013 s/p CABG with LAWSON to LAD and SVG to OM, HTN, DDD,diverticulitis, vertigo, prior DVT, OA who presents as an OSH transfer for AFib with RVR complicated by hemodynamic instability now rate controlled ondig / metop. While in CCU also managed MRSA cellulitis/bacteremia/septic emboli on Vanc until 03/16/23 and recent R arm fracture. Active consultants: - ID (completed consult, opat) New findings that warrant follow-up and pending studies: - None Major problems/Plans: #pAF with RVR Home regimen: metop 50mg daily. Previously on sotalol 80mg (15d supply last dispensed 02/07/23). TTE02/20 read LVEF 55-60, no valvular dz - amiodarone gtt - Eliquis - s/p dig load. Maintenance dose 125mcg with daily dig level - cont metop 50mg XL q12h - EP c/s for help with medical management of AFib with RVR #MRSA cellulitis #MRSA bacteremia #Septic pulmonary emboli Positive cultures 02/14, but started empirically on vanc 02/12. In house read of OSH CT CAP with septic emboli in lungs, confirmed on repeat this admission. 02/20 Bcx+ within 24 hours MRSE 1/2 bottles, likely contaminant. TTE 02/20 read LVEF 55- 60, no valvular dz or vegetations. 02/20 LUE ultrasound with cellulitis with underlying myositis and small non-drainable fluid collection, which was verified by CTLUE without osteomyelitis. 02/20 ACCS c/s rec nonoperative. L PICC placed after initial + Bcx, okay to leave in per ID for Vanc course. - continue Vanc with regular vanc trough - ID c/s with recs Vanc 4 weeks end (02/12 - 03/16) Best family contact: Storm Lobato (son) [phone] Rehab/Ancillary Consults: [] BI (trauma patient with LOC) [] Chemical dependency [x] PT [x] OT [] Speech [] PM&R [] SMART (stroke patient) [] Wound care Anticoagulation therapy: [] VTE Prophylaxis [] Heparin [] Lovenox [] SCDs [] IVC Filter [] Other: [] None - Reason: on eloquis [x] Therapeutic Anticoagulation Indication: [x] Heparin [] Lovenox [] Other: Any previous issues with tolerating anticoagulants? [] Yes [x] No Describe: Venous duplex performed? [] Yes ---> Most recent findings: [x] No Current antimicrobial therapy: [Vanc] Indication: Cellulitis/Bacteremia/Septic emboli Start Date: 02/17 Planned Duration: 03/16 Lines/drains/airways present PICC Triple Lumen 02/19/23 Non-tunneled Power #1 Doe, #2 Red, #3 White, Left Basilic;Upper arm (Active) Number of days: 3 Urethral Catheter (Active) Number of days: 1 Trach size, last date change (NA if not applicable): NA To-do list prior to transfer: Make sure the following monitors or precautions are ordered if indicated: Telemetry [x] Yes [] No Continuous pulse oximetry [x] Yes [x] No IAN precautions [] Yes [x] No Difficult airway [] Yes [x] No Trach orders/signage [] Yes [x] No Size/Type: Date placed: Responsible service: Glycemic control plan [] Long acting insulin [] SSI --> change from scheduled to AC/HS blood glucose checks [x] None ----> d/c ICU insulin and blood glucose checks Central line necessary? [] Yes [x] No [] N/A Rich catheter necessary? [] Yes [x] No [] N/A [x] Discontinue K/Mg/Phos repletion order (if applicable) [x] Discontinue stress ulcer prophylaxis if no longer indicated [x] Signed & Held orders reconciled (all orders either released or discontinued) [x] Sign-out was called to Cards firm service. QUESTIONS? Call CCU Eliud Pires MD Internal Medicine, PGY1 -- CCU Yellow * Plan of Care - Katharina Glass RN - 02/21/2023 9:11 PM CDT Problem: Activity: Goal: Mobility will improve Outcome: Progressing Problem: Cardiac: Goal: Ability to maintain an adequate cardiac output will improve Outcome: Progressing Goals: Clinical Goals for the Shift: monitor neurovascular checks hourly, or changes in left arm for swelling Summary: Patient resting in bed, monitoring neurovasc hourly. 5/10 pain right hand, did not want pain meds at this time. HR 113, afib. Will continue to monitor. * Summary of Treatment Recommendations Non-Billable - Nallely Chaudhari MD PhD - 02/21/2023 11:19 AM CDT Infectious Diseases Sign Off Recommendations for Patients on Home Paraprofessional IV Antibiotics Diagnosis: MRSA bacteremia Retained Infected Hardware (Yes/No/Unclear): 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 Site of Infection(s): Blood Organism(s): MRSA Antibiotics Start Date: 02/17/2023 Infectious Disease Team: General 4 Infectious Disease Attending: Fara Medication Recommendations: Drug(s): Vancomycin 1250 mg IV every 24 hours Duration 4 weeks Firm Stop (Yes/No): Yes Anticipated Stop Date (note, the following date does not imply an order to stop on that date): 03/16/2023 Labs/Frequency to be Monitored: CBC and CMP once weekly Vanc trough twice weekly Imaging Recommended Before Follow Up (include clinical question to be answered by imaging): None Summary of Consultation: Tiera Lobato is a 77 year old lady with atrial fibrillation who presented to an outside hospital in A fib with RVR with hemodynamic instability [facility]. Her hospital course was complicated several days after admisson to the outside hospital by MRSA bacteremia for 1 day at the OSH. Rapidly cleared. She reports no preceding fevers or chills prior to going to the hospital for A fib, and given rapid clearance of bacteremia and echo without any associated vegetations I suspect that this may be a nosocomial infection that she developed while at [facility]. However, given her prosthetic knee and the observation of mil d thickening on the tricuspid valve (but without any overt vegetations) I would prefer to treat with a four week course of antibiotic therapy. Follow Up Plan: With Gen ID in 2 weeks. * Consults, Subsequent - Nallely Chaudhari MD PhD - 02/21/2023 11:13 AM CDT Infectious Disease Subsequent Consult Note Infectious Disease Team: General 4 Contact Information: Please see EPIC Treatment Team listing for up-to-date contact information. Subjective No acute issues overnight. Remains afebrile. Blood cultures from transfer here to [facility] have finalized as negative. Objective Anti-infectives (From admission, onward) Start Dose/Rate Route Frequency Ordered Stop 02/20/232014 cefepime (MAXIPIME) 2,000 mg/20 mL in sterile water (premix) 2,000 mg 2,000 mg 240 mL/hr over 5 Minutes intravenous Every 12 hours scheduled 02/20/23193902/18/232099 vancomycin 1,250 mg/262.5 mL in sodium chloride 0.9% (premix) 1,250 mg 1,250 mg over 60 Minutes intravenous Every 24 hours 02/18/232027 Vitals: 24hr Min/Max: Temp Min: 36.4 ??C (97.5 ??F) Max: 36.9 ??C (98.5 ??F) Pulse Min: 100 Max: 128 BP Min: 105/57 Max: 142/81 Resp Min: 14 Max: 22 SpO2 Min: 93 % Max: 97 % Active LDAs: PICC Triple Lumen 02/19/23 Non-tunneled Power #1 Doe, #2 Red, #3 White, Left Basilic;Upper arm (Active) Number of days: 2 Urethral Catheter (Active) Number of days: 0 Physical Exam: General: Alert, seated in chair at bedside, interactive and cooperative with exam. Well appearing. Eyes and Mouth: pupils are equal and round, sclera anicteric, Moist mucous membranes, no oral lesions noted. Neck: supple, no lymphadenopathy Lungs: Breathing comfortably on room air. Clear to auscultation anteriorly Cardiac:tachycardic, no murmurs appreciated Abd: soft, nontender, nondistended, normoactive bowel sounds MSK: no joint swelling or effusions are noted. Full range of motion at elbows, wrists, knees and ankles. Spine: no spinal tenderness on palpation. Skin: No lesions or rashes noted on exposed skin Neuro: Facial features are symmetric, speech is clear and fluent and appropriate. Moves all extremities equally, sensation is intact to light Touch Access: IV site is clean/dry and intact Lab/Radiology/Diagnostic Review: Lab Results Component Value Date MICROBIOLOGY Final Report: Negative 02/17/2023 MICROBIOLOGY Final Report: No growth 02/17/2023 MICROBIOLOGY Preliminary Report: No growth to date. 02/17/2023 MICROBIOLOGY Preliminary Report: No growth to date. 02/17/2023 Radiology results were reviewed. US Upper Extremity Left Limited Result Date: 02/21/2023 1. Cellulitis with underlying myositis 2. Rounded areas of hypoechogenicity, which may represent small fluid without a drainable collection. :: Dictated by: Syed Guadalupe MD The radiology attending physician has personally reviewed this study, and had reviewed and/or edited this written report andagrees with it. Electronically signed by: Santino Robledo M.D. XR Wrist Right 3 or More Views Result Date: 02/21/2023 1. Unchanged casted, mildly impacted, mildly displaced intra-articular fracture of the distal radius Electronically signed by: Dilshad Mcclendon MD, PHD XR Radius Ulna Right 2 Views Result Date: 02/21/2023 1. Unchanged casted, mildly impacted, mildly displaced intra-articular fracture of the distal radius Electronically signed by: Dilshad Mcclendon MD, PHD XR Wrist Right 3 or More Views Result Date: 02/20/2023 Unchanged comminuted, intra-articular, minimally depressed, mildly impacted fracture of the distal radius Dictated by: Sami Amador MD The radiology attending physician has personally reviewed this study, and had reviewed and/or edited this written report and agrees with it. Electronically signed by: Dilshad Mcclendon MD, PHD XR Chest 1 View Result Date: 02/19/2023 Comparison with radiograph 02/17/2023. Left upper shimmed approach peripherally inserted central venous catheter tip overlies the superior vena cava. Patient is status post coronary bypass and mediansternotomy. Sternotomy wires are aligned and unchanged. Small left basilar effusion with accompanying atelectasis, unchanged from prior. No right pleural effusion. No pneumothorax. Bilateral peripheral nodular opacities are again seen, better evaluated on CT 02/18/2023. Unchanged cardiomediastinalsilhouette. Dictated by: Itz Kemp MD PHD The radiology attending physician has personally reviewed this study, and had reviewed and/or edited this written report and agrees with it. Electronically signed by: Te Wayne M.D. XR Hand Right 3 or More Views Result Date: 02/19/2023 1. Unchanged comminuted, mildly depressed, intra-articular fracture of the distal right radius, managed with casting. 2. No additional fracture of the right elbow, forearm, wrist, and hand. Electronically signed by: Estella Reid M.D. XR Wrist Right 3 or More Views Result Date: 02/19/2023 1. Unchanged comminuted, mildly depressed, intra-articular fracture of the distal right radius, managed with casting. 2. No additional fracture of the right elbow, forearm, wrist, and hand. Electronically signed by: Estella Reid M.D. XR Radius Ulna Right 2 Views Result Date: 02/19/2023 1. Unchanged comminuted, mildly depressed, intra-articular fracture of the distal right radius, managed with casting. 2. No additional fracture of the right elbow, forearm, wrist, and hand. Electronically signed by: Estella Reid M.D. XR Elbow Right 3 or More Views Result Date: 02/19/2023 1. Unchanged comminuted, mildly depressed, intra-articular fracture of the distal right radius, managed with casting. 2. No additional fracture of the right elbow, forearm, wrist, and hand. Electronically signed by: Estella Reid M.D. Assessment/Plan Tiera Lobato is a 77 year old lady with atrial fibrillation who presented to an outside hospital in A fib with RVR with hemodynamic instability requiring transfer to [facility] for a higher level of care. Her hospital course was complicated by MRSA bacteremia. MRSA bacteremia: Unclear if this was present at admission, but she reports no preceding fevers or chills, and given rapid clearance of bacteremia and echo without any associated vegetations I suspect that this may ran nosocomial infection that she developed while at [facility]. However, given her prostheticknee and the observation of mild thickening on the tricuspid valve (but without any overt vegetations) I would prefer to treat with a four week course of antibiotic therapy. Recommendations: - Continue IV vancomycin at current dose, goal troughs of 15-20, she is close to goal (14.8 and 13.3 and given her age I expct she will start to accumulate so I would not change the dosing at present). - Plan for 4 weeks of IV vancomycin from 02/17/23-03/16/23 - CBC and CMP once weekly while on IV vancomycin - Vanc trough twice weekly while on IV vancomycin Medical Decision Making:Today, I am treating the patient for MRSA bacteremia which can cause sepsisor in the short-term future in the absence of appropriate treatment, as described in the note. I am monitoring for vancomycin toxicity with vancomycin troughs. Nallely Chaudhari MD PhD Infectious Diseases Team 4 Thanku for the opportunity to participate in the care of your patient. Please chat message in EPIC or call the ID team 4 attending with any questions or concerns at [phone] during daytime hours. If there is an emergency after hours then the ID fellow diamond setter can be reached at [phone]. * Plan of Care - Dea Gamino RN - 02/21/2023 9:49 AM CDT Goals: Clinical Goals for the Shift: monitor hemodynamics, VS, gtts, pain management, promote comfort and safety. HOOD and cardioversion bedside today Summary: Problem: Health Behavior: Goal: Understanding of discharge needs will improve Outcome: Progressing Problem: Lack of Knowledge: Goal: Ability to state ways to decrease the risk of falls will improve Outcome: Progressing Problem: Safety: Goal: Will remain free from falls Outcome: Progressing Goal: Will remain free from injury from falls Outcome: Progressing Goal: Will remain free from falls and injury in home environment Outcome: Progressing Problem: Activity: Goal: Mobility will improve Outcome: Progressing Problem: Lack of Knowledge: Goal: Understanding of ways to prevent future skin breakdown will improve Outcome: Progressing Goal: Ability to identify appropriate dietary choices will improve Outcome: Progressing Problem: Nutritional: Goal: Dietary intake will improve Outcome: Progressing Goal: Ability to maintain a balanced intake and output will improve Outcome: Progressing Problem: Skin Integrity: Goal: Risk for impaired skin integrity will decrease Outcome: Progressing Goal: Ability to demonstrate warm and dry skin will improve Outcome: Progressing Goal: Circulation will improve to fullest extent possible Outcome: Progressing Problem: Cardiac: Goal: Ability to maintain an adequate cardiac output will improve Outcome: Progressing Goal: Hemodynamic stability will improve Outcome: Progressing Problem: Lack of Knowledge: Goal: Ability to state signs and symptoms to report to health care provider will improve Outcome: Progressing Goal: Knowledge of the prescribed therapeutic regimen will improve Outcome: Progressing Goal: Mental status will improve Outcome: Progressing * Significant Event - Benjamín Rodriguez, - 02/20/2023 8:03 PM CDT err * Significant Event - Benjamín Rodriguez DO - 02/20/2023 8:03 PM CDT err * Plan of Care - Ella Atkins RN - 02/20/2023 8:00 PM CDT Problem: Health Behavior: Goal: Understanding of discharge needs will improve Outcome: Progressing Problem: Lack of Knowledge: Goal: Ability to state ways to decrease the risk of falls will improve Outcome: Progressing Problem: Safety: Goal: Will remain free from falls Outcome: Progressing Goal: Will remain free from injury from falls Outcome: Progressing Goal: Will remain free from falls and injury in home environment Outcome: Progressing Problem: Activity: Goal: Mobility will improve Outcome: Progressing Problem: Lack of Knowledge: Goal: Understanding of ways to prevent future skin breakdown will improve Outcome: Progressing Goal: Ability to identify appropriate dietary choices will improve Outcome: Progressing Problem: Nutritional: Goal: Dietary intake will improve Outcome: Progressing Goal: Ability to maintain a balanced intake and output will improve Outcome: Progressing Problem: Skin Integrity: Goal: Risk for impaired skin integrity will decrease Outcome: Progressing Goal: Ability to demonstrate warm and dry skin will improve Outcome: Progressing Goal: Circulation will improve to fullest extent possible Outcome: Progressing Problem: Cardiac: Goal: Ability to maintain an adequate cardiac output will improve Outcome: Progressing Goal: Hemodynamic stability will improve Outcome: Progressing Problem: Lack of Knowledge: Goal: Ability to state signs and symptoms to report to health care provider will improve Outcome: Progressing Goal: Knowledge of the prescribed therapeutic regimen will improve Outcome: Progressing Goal: Mental status will improve Outcome: Progressing Goals: Clinical Goals for the Shift: monitor hemodynamics, I&O, VS, gtts, pain management, promote comfort and safety Summary: * Significant Event - Olimpia Long MD - 02/20/2023 4:14 PM CDT ICU TO MEDICINE HANDOFF TOOL Primary reason for ICU admission: AFib with RVR Brief ICU Course: She presents to the hospital after dizzy spell 02/11, found to be in AFib with RVR. She was sitting outside in the sun, began to feel lightheaded, and called the nurse at her assisted living facility.She states she blacked out and next thing she knows, she was being taken to the hospital. She hadrecently been discharged from [facility] prior (02/06) after treatment of R radial fracture)--during this admission as well, she was in AFib with RVR, loaded and started on sotalol 40mg BID (dose escalation limited by hypotension). Ind the ED, she was found to have HR in the 130s and febrile. EKG in the ED showed AFib with RVR. Per OSH notes, she was tachycardic to the 130s, reuiringIV diltiazem bolus, transitioned to PO dilt 360mg daily. Trop I was 0.042-->0.039-->0.030 (0-0.034). Due to poor HR control, she was started on metoprolol 25mg q8h with plan to uptitrate for goal HR. Further investigation showed signs of multifocal PNA both on CXR and CT CAP. She was also found to have an infiltrative IV with cellulitis and blood cultures positive for MRSA. Additionally, , she had what appeared to be asymptomatic bacteruria. Her Procalcitonin was minimally elevated but lactated was normal. WBC throughout this time was normal. She was initially treated with doxy, flagyl,vanc, ceftriaxone. Thereafter, she became hypotensive to 90s/50s, bolused at least 2L and requiringneo, which was weaned shortly after. 02/15, she was switched from dilt to amio with bolus and continuous infusion along with metoprolol 50mg , rebolused on 02/16. She underwent DCCV 02/16 with successful conversion (post DCCV EKG showed NSR with HR in the 70s and TWI in anterior and lateral leads, seen in 2019 as well) for a few hours and subsequently went back into AFib with RVR. Later 02/16 she was transferred to the ICU for further monitoring, discontinued doxycycline. She continued to remain in RVRwith rates in the high 130s-150s. Due to poor control of her AFib with RVR refractory to electricaland chemical cardioversion complicated by hemodynamic instability, she was transferred to [facility] for possible ablation. Upon arrival to [facility] CCU, she continued to be in AFib with RVR. She arrived on amiodarone gtt. She was loaded with digoxin and started on digoxin maintenance. She had some improvements of her HR to 110-130s. She was started on metop tartrate 12.5mg q6h-->25mg q6h. Of note, CT CAP from OSH was read by in-house radiology, found to have what apepars to be septic pulmonary emboli. Repeat CT CAP revealed worsened lesions. TTE was obtained: technically difficult study with no overt valvular changes. However, upon further review by CCU attending, concerning that there could be some debris in RV that cannot be completely visualized. Recommending HOOD to assess valves further and DCCV for refractory RVR. Active consultants: ID: MRSA bacteremia, pulmonary septic emboli EP: medical management of AFib with RVR Ortho: R arm fracture New findings that warrant follow-up and pending studies: TTE SUMMARY: ?Afib during study which is technically difficult: LV size is normal. LVEF 55-60%. Apical hypertrophy present. Normal RV function. No significant valve disease. Estimated PASP 20mmHg+RA pressure. RA pressure is normal. CT CAP IMPRESSION: 1. Multiple peripheral predominant areas of nodularity with surrounding groundglass within the lungs, multiple of which are new or enlarging compared to 02/15/2023, suspicious for septic emboli. 2. Unchanged nondisplaced right 4th through 6th and 9th rib fractures with overlying subpleural hematoma adjacent to the right 9th rib fracture. 3. Worsening small bilateral pleural effusions. PERTINENT physical exam findings on day of transfer: Gen: No apparent distress. Resting comfortably. Cooperative. HEENT: No conjunctival pallor or injection, no icterus. No nasal discharge. No LAD. Moist mucus membranes. No exudates. No thyromegaly. Cardiac: irregularly irregular , normal S1/S2. No rubs, murmurs, or gallops. + JVD to mandibular angle at 30deg. No S3/S4. No LE edema. No carotid bruits. Peripheral pulses 2+ bilaterally. Pulm: Clear to auscultation bilaterally. No wheezing or rhonchi. Abdomen: Soft. Bowel sounds present. No tenderness or distension. No hepatosplenomegaly. Extremity: Warm. No edema. No clubbing or cyanosis. R arm in cast. L arm with forearm cellulitis isred but not indurated or fluctuant Neuro: Alert and orientedx3. CN II-XII grossly intact. Strength 5/5 in upper and lower extremities.Sensation intact throughout to light touch Skin: No lesions, erythema, or skin changes. Psych: Mood appropriate. Appropriate insight. Important changes to home medications: Dc sotalol, started digoxin for rate control Holding lisinopril Medications to consider stopping prior to discharge: [] New antipsychotic (started for ICU delirium): [] Other: Major problems/Plans: NEURO/PSYCH #anxiety/depression - continue Zoloft CARDIOVASCULAR #pAF with RVR Home regimen: metop 50mg daily. Previously on sotalol 80mg (15d supply last dispensed 02/07/23) - amiodarone gtt - heparin gtt. Holding Eliquis iso possible ablation - s/p dig load. Maintenance dose 125mcg with daily dig level - inc metop 25mg q6h - EP c/s for help with medical management of AFib with RVR - TTE to r/o structural abnormalities - treat potential underlying causes #apical HCM Increased interstitial infiltrates concerning for pulmonary edema versus multifocal PNA as below. Clinically not showing signs of overt fluid overload. Got multiple boluses fluid in OSH due to concern for sepsis and hypoTN - TTE - FBG net even #CAD with OR #hx CABG #HLD - lipid panel with LDL 37, A1c 5.4 - continued risk factor modification - atorvastatin 80, Zetia, Plavix - no indication for triple therapy AC/antiplatelet at this time. Continue Plavix and AC only #HTN Home regimen: lisinopril 10mg - CTM off antiHTNsives given hypotension RESPIRATORY #c/f multifocal PNA #c/f septic emboli - plan as below - currently on RA GASTROINTESTINAL #GERD Home regimen: omeprazole 20mg - PPI #IBS Current regimen: [id number] - hold linaclotide for diarrhea - CTM. Can schedule laxatives if needed RENAL/ #CKD 3a Per chart review. Baseline Cr ~0.9. Currently at her baseline Cr - avoid nephrotoxic medications - regular vanc levels. Redose accordingly ID #MRSA cellulitis #MRSA bacteremia #c/f multifocal PNA #c/f septic emboli (pulmonary) Positive cultures 02/14, but started empirically on vanc 02/12. In house read of OSH CT CAP with septic emboli in lungs, confirmed on repeat this admission. Not septic-appearing at this time - vanc with regular vanc trough - TTE - ID c/s given MRSA bacteremia at OSH with negative in-house cultures. Unknown source for emboli. Assistance with workup? - PET/CT? Tagged platelet scan? ENDOCRINE No acute issues HEME/ONC #prior DVT Remote, unprovoked. Chronically on Eliquis - continue AC with heparin gtt #anemia Baseline -. Likely bone marrow suppression in the setting of acute illness - hold off on iron studies given not a candidate for IV iron while bacteremic - folate/B12 WNL - absolute retic count consistent with hypoproliferation - CTM MSK #OA #DDD Current regimen: Voltaren gel, gabapentin 600mg QID - CTM - lidocaine patches and APAP as needed, gabapentin 600mg BID - if breakthrough pain, can consider fentanyl patch #osteoporosis Currently on alendronate 70mg qWeekly - CTM #R arm fracture Fracture after ground-level fall 02/06. S/p cast with plan for outpatient follow up - xray arm with nondisplaced arm fracture - R arm nonweight-bearing - ortho c/s for arm fracture and cast take-down F: low fat/low chol; 2g Na diet; full liquid A: APAP, lido patch, gabapentin S: none T: heparin gtt H: 30 deg Ul: PPI G: none Best family contact: Son Storm Lobato [phone] Rehab/Ancillary Consults: [] BI (trauma patient with LOC) [] Chemical dependency [x] PT [x] OT [] Speech [] PM&R [] SMART (stroke patient) [] Wound care Anticoagulation therapy: [] VTE Prophylaxis [] Heparin [] Lovenox [] SCDs [] IVC Filter [] Other: [] None - Reason: [x] Therapeutic Anticoagulation Indication: [x] Heparin [] Lovenox [] Other: Any previous issues with tolerating anticoagulants? [] Yes [] No Describe: Venous duplex performed? [] Yes ---> Most recent findings: [] No Current antimicrobial therapy: Note - Planned duration may be a number of days or a criterion such as while drain in place or until blood cultures negative [] N/A - No current antimicrobial therapy Vancomycin 15mg/kg Indication: MRSA bacteremia Start Date: 02/13 Planned Duration: 4-6weeks To insert additional antimicrobials, use the .SICUabx smart phrase. Lines/drains/airways present PICC Triple Lumen 02/19/23 Non-tunneled Power #1 Doe, #2 Red, #3 White, Left Basilic;Upper arm (Active) Number of days: 1 Peripheral IV 02/18/23 20 G Anterior;Left Forearm (Active) Number of days: 2 Trach size, last date change (NA if not applicable): NA To-do list prior to transfer: Make sure the following monitors or precautions are ordered if indicated: Telemetry [x] Yes [] No Continuous pulse oximetry [] Yes [x] No IAN precautions [] Yes [x] No Difficult airway [] Yes [x] No Trach orders/signage [] Yes [x] No Size/Type: Date placed: Responsible service: Glycemic control plan [] Long acting insulin [] SSI --> change from scheduled to AC/HS blood glucose checks [x] None ----> d/c ICU insulin and blood glucose checks Central line necessary? [] Yes [] No [x] N/A Rich catheter necessary? [x] Yes [] No [] N/A [x] Discontinue K/Mg/Phos repletion order (if applicable) [x] Discontinue stress ulcer prophylaxis if no longer indicated [x] Signed & Held orders reconciled (all orders either released or discontinued) [x] Sign-out was called to the [employer] service. Olimpia Long MD * Plan of Care - Araceli Coto RN - 02/20/2023 2:52 PM CDT Per Medical Chart/Rounds/IDR: patient is moving to the floor today. ADD: unknown Plan & referrals made/in place: PT/OT have not yet seen the patient. Medical team thinks she will need SNF placement. Patient has a broken wrist-non weight bearing- may need a modifier for her rollator and walker that she has at home. Patient's Identified Problem/Goal Problem: Ensure acute medical needs are met and that patient has a safe discharge plan. Goal: Secure a discharge plan that patient/family are agreeable with and ensure patient has continuum of care. Patient and/or family are agreeable with plan. science manager will continue to follow and assist with discharge planning as needed. If any further discharge needs arise, please contact the covering cyanide case hardener. * Plan of Care - Dea Gamino RN - 02/20/2023 9:44 AM CDT Goals: Clinical Goals for the Shift: monitor hemodynamics, I&O, VS, gtts, pain management, promote comfort and safety Summary: Problem: Health Behavior: Goal: Understanding of discharge needs will improve Outcome: Progressing Problem: Lack of Knowledge: Goal: Ability to state ways to decrease the risk of falls will improve Outcome: Progressing Problem: Safety: Goal: Will remain free from falls Outcome: Progressing Goal: Will remain free from injury from falls Outcome: Progressing Goal: Will remain free from falls and injury in home environment Outcome: Progressing Problem: Activity: Goal: Mobility will improve Outcome: Progressing Problem: Lack of Knowledge: Goal: Understanding of ways to prevent future skin breakdown will improve Outcome: Progressing Goal: Ability to identify appropriate dietary choices will improve Outcome: Progressing Problem: Nutritional: Goal: Dietary intake will improve Outcome: Progressing Goal: Ability to maintain a balanced intake and output will improve Outcome: Progressing Problem: Skin Integrity: Goal: Risk for impaired skin integrity will decrease Outcome: Progressing Goal: Ability to demonstrate warm and dry skin will improve Outcome: Progressing Goal: Circulation will improve to fullest extent possible Outcome: Progressing Problem: Cardiac: Goal: Ability to maintain an adequate cardiac output will improve Outcome: Progressing Goal: Hemodynamic stability will improve Outcome: Progressing Problem: Lack of Knowledge: Goal: Ability to state signs and symptoms to report to health care provider will improve Outcome: Progressing Goal: Knowledge of the prescribed therapeutic regimen will improve Outcome: Progressing Goal: Mental status will improve Outcome: Progressing * Plan of Care - Ella Atkins RN - 02/19/2023 11:13 PM CDT Problem: Health Behavior: Goal: Understanding of discharge needs will improve Outcome: Progressing Problem: Lack of Knowledge: Goal: Ability to state ways to decrease the risk of falls will improve Outcome: Progressing Problem: Safety: Goal: Will remain free from falls Outcome: Progressing Goal: Will remain free from injury from falls Outcome: Progressing Goal: Will remain free from falls and injury in home environment Outcome: Progressing Problem: Activity: Goal: Mobility will improve Outcome: Progressing Problem: Lack of Knowledge: Goal: Understanding of ways to prevent future skin breakdown will improve Outcome: Progressing Goal: Ability to identify appropriate dietary choices will improve Outcome: Progressing Problem: Nutritional: Goal: Dietary intake will improve Outcome: Progressing Goal: Ability to maintain a balanced intake and output will improve Outcome: Progressing Problem: Skin Integrity: Goal: Risk for impaired skin integrity will decrease Outcome: Progressing Goal: Ability to demonstrate warm and dry skin will improve Outcome: Progressing Goal: Circulation will improve to fullest extent possible Outcome: Progressing Problem: Cardiac: Goal: Ability to maintain an adequate cardiac output will improve Outcome: Progressing Goal: Hemodynamic stability will improve Outcome: Progressing Problem: Lack of Knowledge: Goal: Ability to state signs and symptoms to report to health care provider will improve Outcome: Progressing Goal: Knowledge of the prescribed therapeutic regimen will improve Outcome: Progressing Goal: Mental status will improve Outcome: Progressing Goals: Clinical Goals for the Shift: VSS, HDS Summary: Amio & heparin infusing, patient denies pain or discomfort, will continue to monitor. * Consults, Subsequent - Archie Mayo MD - 02/19/2023 5:50 PM CDT Brief EP Note Patient with continued Afib RVR. - Continue IV amiodarone - continue AC (on heparin gtt) - can continue rate control with digoxin within therapeutic range - can start beta blockers if high suspicion of only afib driving tachycardia with low concern for underlying sepsis, critical illness contribution - recommend DCCV, would tentatively recommend Wednesday 02/21 to allow for additional amiodarone loadingtime and further temporal separation from MRSA bacteremia and cellulitis. Timing can be flexible and will defer to primary team Cosigned by Nick Lange MD PhD at 02/20/2023 9:15 PM CDT * Plan of Care - Araceli Coto RN - 02/19/2023 2:35 PM CDT Per Medical Chart/Rounds/IDR: per medical team, the patient will need to go to a SNF. Waiting for PT/OT recommendations. ADD: unknown at this time. Plan & referrals made/in place: CM to follow for PT/OT recommendations and send out SNF referrals. Patient's Identified Problem/Goal Problem: Ensure acute medical needs are met and that patient has a safe discharge plan. Goal: Secure a discharge plan that patient/family are agreeable with and ensure patient has continuum of care. Patient and/or family are agreeable with plan. science manager will continue to follow and assist with discharge planning as needed. If any further discharge needs arise, please contact the covering cyanide case hardener. * Plan of Care - [place] Del Castillo RN - 02/19/2023 1:49 AM CDT Goals: Clinical Goals for the Shift: monitor VS, lasbs, pain, sleep hygiene Summary: Problem: Health Behavior: Goal: Understanding of discharge needs will improve Outcome: Progressing Problem: Lack of Knowledge: Goal: Ability to state ways to decrease the risk of falls will improve Outcome: Progressing Problem: Safety: Goal: Will remain free from falls Outcome: Progressing Goal: Will remain free from injury from falls Outcome: Progressing Goal: Will remain free from falls and injury in home environment Outcome: Progressing Problem: Activity: Goal: Mobility will improve Outcome: Progressing Problem: Lack of Knowledge: Goal: Understanding of ways to prevent future skin breakdown will improve Outcome: Progressing Goal: Ability to identify appropriate dietary choices will improve Outcome: Progressing Problem: Nutritional: Goal: Dietary intake will improve Outcome: Progressing Goal: Ability to maintain a balanced intake and output will improve Outcome: Progressing Problem: Skin Integrity: Goal: Risk for impaired skin integrity will decrease Outcome: Progressing Goal: Ability to demonstrate warm and dry skin will improve Outcome: Progressing Goal: Circulation will improve to fullest extent possible Outcome: Progressing Problem: Cardiac: Goal: Ability to maintain an adequate cardiac output will improve Outcome: Progressing Goal: Hemodynamic stability will improve Outcome: Progressing Problem: Lack of Knowledge: Goal: Ability to state signs and symptoms to report to health care provider will improve Outcome: Progressing Goal: Knowledge of the prescribed therapeutic regimen will improve Outcome: Progressing Goal: Mental status will improve Outcome: Progressing * Plan of Care - Kel Issa RN - 02/18/2023 6:46 PM CDT Goals: Clinical Goals for the Shift: monitor hemodynamics Summary: Pt no longer nauseated remains on amio at 1mg/min and heparin therapeutic at 14unit/kg/hr CT C/A/P done today see report, digoxin levels done and consult EP done . CVC removed and new PIV initiated. Antibiotics to be initiated for septic emboli and ground glass appearance in lungs. Familyat bedside (son ) updated w team. * Initial Assessments - Sue Mccoy RN - 02/18/2023 3:18 PM CDT CM Initial Assessment Interview Note Information Obtained From: Adult child Name: Patient was unable to participate in the interview. Patient spoke with patient's son - Storm Lobato - [phone] (02/18/23 5290) Admission Source: from [facility] - brought there from her [facility] Facility - [facility] Impression: Anxiety, Depression, pAF with RVR, apical HCM, CAD with OR, hx CABG, HLD HTN, PNA, GERD, IBS, CLAUDIA, MRSA, Sepsis Plan Includes: Patient to return to facility when medically stable. CM left message with facility to see if there is an intake procedure for return to the facility. Primary Source of Transportation: Does the patient need discharge transport arranged?: No (02/18/231516) Health Insurance Coverage: [employer] Prescription Coverage: yes Pharmacy: [facility] - [place], [place] - [address] [place] [id number] The facility handles patient's meds - Son is not sure who that is. Primary Care Provider: Cristian Ling MD - verified Prior to Admission: Functional Status: Independent with ADLs Primary Caregiver: Self Support System: Family members (Patient lives in an Assisted Living Center that has a DIGITAL ANALYST stop by to do patient's vital signs on a regular basis.) Support system contact info (name, phone, availablity): Son Johnathan Lobato - [phone] Home Care Services: Other (Comment) (Patient had HH scheduled to start, but was hospitalized prior to it starting. Patient's son is not sure what the name of the HH Agency was.) Durable Medical Equipment: Walker (wheeled), Cane (single prong) Living Arrangements: Alone Type of Residence: Assisted living Does patient wish to return to care facility?: Yes, wishes to return Facility contact name and number:: [facility] - [phone] - [id number], [place] [address] - CM called and left a message Steps in home?: No steps inside or outside (02/18/23 150) Behavioral Health Services: Behavioral Health Services: No (02/18/23 150) Patient expects to be Discharged to: Assisted Living, (02/18/23 150) Additional Information: NA Patient's Identified Problem/Goal Problem: Ensure acute medical [...] community resources. Plan includes: 1. Collaboration with patient, MD, direct care nurse, Training Development Specialist, and other members of the health care team to assure needed interventions completed. 2. Return patient to optimal level of self-care post discharge. 3. [employer] will follow for Discharge Planning - interventions as needed 4. Anticipated level of care at discharge 5. Planned Discharge Disposition Based on a comprehensive family assessment, assistance with instrumental activities of daily livingafter discharge will be provided by the patient's family & facility. Through the course of our work I determined that the patient's family & facility possess the skill and ability to provide and monitor the care of the patient when she returns home. The patient's family & the facility have the capacity to provide/monitor/arrange for the care of the patient. Finally, we determined that the patient's family & facility have the knowledge of available resources and that combining them with their existing resources will suffice to sustain and care for thepatient when she returns home. The treatment team is aware of this information. All are in agreement with the aftercare plan. Sue Dooley RN, CM * Plan of Care - Mike Florez RN - 02/18/2023 5:37 AM CDT Goals: Clinical Goals for the Shift: Monitor Hemodynamics, sleep hygiene promotion, comfort measures, nausea control, orient to unit Summary: Patient A&Ox4, on RA, 0/10 pain, N&V controlled with Zofran and Compazine. Patientremains in A-fib with RVR in the 130s-160s. Gave x2 digoxin pushes, with a planned 3rd in the morning. EP consult in for a.m. Problem: Health Behavior: Goal: Understanding of discharge needs will improve Outcome: Progressing Problem: Lack of Knowledge: Goal: Ability to state ways to decrease the risk of falls will improve Outcome: Progressing Problem: Safety: Goal: Will remain free from falls Outcome: Progressing Goal: Will remain free from injury from falls Outcome: Progressing Goal: Will remain free from falls and injury in home environment Outcome: Progressing Problem: Activity: Goal: Mobility will improve Outcome: Progressing Problem: Lack of Knowledge: Goal: Understanding of ways to prevent future skin breakdown will improve Outcome: Progressing Goal: Ability to identify appropriate dietary choices will improve Outcome: Progressing Problem: Nutritional: Goal: Dietary intake will improve Outcome: Progressing Goal: Ability to maintain a balanced intake and output will improve Outcome: Progressing Problem: Skin Integrity: Goal: Risk for impaired skin integrity will decrease Outcome: Progressing Goal: Ability to demonstrate warm and dry skin will improve Outcome: Progressing Goal: Circulation will improve to fullest extent possible Outcome: Progressing Problem: Cardiac: Goal: Ability to maintain an adequate cardiac output will improve Outcome: Progressing Goal: Hemodynamic stability will improve Outcome: Progressing Problem: Lack of Knowledge: Goal: Ability to state signs and symptoms to report to health care provider will improve Outcome: Progressing Goal: Knowledge of the prescribed therapeutic regimen will improve Outcome: Progressing Goal: Mental status will improve Outcome: Progressing * Plan of Care - Yessica Camejo RN - 02/17/2023 6:10 PM CDT Goals: Clinical Goals for the Shift: orient to unit; Monitor hemodynamics Summary: Problem: Lack of Knowledge: Goal: Ability to state ways to decrease the risk of falls will improve Outcome: Progressing Problem: Safety: Goal: Will remain free from falls Outcome: Progressing Goal: Will remain free from falls and injury in home environment Outcome: Progressing Problem: Activity: Goal: Mobility will improve Outcome: Progressing Problem: Skin Integrity: Goal: Risk for impaired skin integrity will decrease Outcome: Progressing documented in this encounter Plan of Treatment Pending Results Name Type Priority Associated Diagnoses Date /Time Magnesium Lab STAT 02/17/2023 5:4 3 PM CDT Vancomycin level random Lab STAT 0 02/17/2023 5:43 PM CDT Lipid panel Lab Routine 02/18/2023 4: 26 AM CDT Reticulocyte Count Lab Routine 2022 4:26 AM CDT TSH reflex to free T4 Lab Routine 10/2022 4:26 AM CDT Hepatic function panel Lab Timed 4:55 PM CDT Basic metabolic panel Lab Routine 03/2023 3:08 AM CDT Magnesium Lab Routine 02/23/2023 3:0 8 AM CDT Hepatic function panel, serum Lab Routine 02/23/2023 3:08 AM CDT Vancomycin level trough Lab Routine 0 03/03/2023 8:58 PM CDT Immunofixation, urine Lab Routine 07/2022 11:31 AM CDT Scheduled Orders Name Type Priority Associated Diagnoses Orde r Schedule Magnesium Lab STAT Once for 1 Occ urrences starting 02/17/2023 until 02/17/2023 Vancomycin level random Lab STAT O nce for 1 Occurrences starting 02/17/2023 until 02/17/2023 Lipid panel Lab Routine Once for 1 Oc currences starting 02/18/2023 until 02/18/2023 Reticulocyte Count Lab Routine Once f or 1 Occurrences starting 02/18/2023 until 02/18/2023 TSH reflex to free T4 Lab Routine Onc e for 1 Occurrences starting 02/18/2023 until 02/18/2023 Hepatic function panel Lab Timed On ce for 1 Occurrences starting 02/20/2023 until 02/20/2023 Basic metabolic panel Lab Routine Onc e for 1 Occurrences starting 02/23/2023 until 02/23/2023 Magnesium Lab Routine Once for 1 Occ urrences starting 02/23/2023 until 02/23/2023 Hepatic function panel, serum Lab Routine Once for 1 Occur rences starting 02/23/2023 until 02/23/2023 Vancomycin level trough Lab Routine O nce for 1 Occurrences starting 03/03/2023 until 03/03/2023 Immunofixation, urine Lab Routine Onc e for 1 Occurrences starting 03/17/2023 until 03/17/2023 documented as of this encounter Procedures Procedure Name Priority Date/Time Associated Diagnosis Comments COVID-19 CORONAVIRUS RNA Routine 03/21/2023 10:28 AM CDT EGFR Routine 03/20/2023 9:53 PM CDT CBC WITHOUT DIFFERENTIAL Routine 03/20/2023 9:53 PM CDT MAGNESIUM Routine 03/20/2023 9:53 PM CDT BASIC METABOLIC PANEL Routine 03/20/2023 9:53 PM CDT XR WRIST RIGHT 2 VIEWS IP Routine 12:54 PM CDT EGFR Routine 03/19/2023 9:43 PM CDT CBC WITHOUT DIFFERENTIAL Routine 03/19/2023 9:43 PM CDT MAGNESIUM Routine 03/19/2023 9:43 PM CDT BASIC METABOLIC PANEL Routine 03/19/2023 9:43 PM CDT EGFR Routine 03/18/2023 9:59 PM CDT CBC WITHOUT DIFFERENTIAL Routine 03/18/2023 9:59 PM CDT MAGNESIUM Routine 03/18/2023 9:59 PM CDT BASIC METABOLIC PANEL Routine 03/18/2023 9:59 PM CDT EGFR Routine 03/17/2023 7:58 PM CDT CBC WITHOUT DIFFERENTIAL Routine 03/17/2023 7:58 PM CDT MAGNESIUM Routine 03/17/2023 7:58 PM CDT BASIC METABOLIC PANEL Routine 03/17/2023 7:58 PM CDT IMMUNOTYPING Routine 03/17/2023 11:31 AM CDT IMMUNOGLOBULIN FREE LIGHT CHAINS Routine 03/17/2023 11:31 AM CDT URINALYSIS AND REFLEX TO MICROSCOPIC Routine 03/17/2023 11:31 AM CDT IMMUNOFIXATION, URINE Routine 03/17/2023 11:31 AM CDT PROTEIN / CREATININE RATIO, URINE, RANDOM Routine 03/17/2023 11:31 AM CDT URINALYSIS, MICROSCOPIC ONLY Routine 03/17/2023 11:[address] ABDOMEN PELVIS W CONTRAST IP Routine 03/16/2023 10:15 PM CDT EGFR Routine 03/16/2023 7:49 PM CDT CBC WITHOUT DIFFERENTIAL Routine 03/16/2023 7:49 PM CDT PHOSPHORUS Routine 03/16/2023 7:49 PM CDT MAGNESIUM Routine 03/16/2023 7:49 PM CDT BASIC METABOLIC PANEL Routine 03/16/2023 7:49 PM CDT CBC WITHOUT DIFFERENTIAL Timed 03/16/2023 6:25 AM CDT TRANSFUSE RED BLOOD CELLS Timed 03/16/2023 1:49 AM CDT PREPARE RBC Timed 03/16/2023 1:11 AM CDT CBC WITHOUT DIFFERENTIAL Timed 03/15/2023 11:49 PM CDT HC ANTIBODY SCREEN RBC Timed 11:49 PM CDT EGFR Routine 03/15/2023 9:40 PM CDT CBC WITHOUT DIFFERENTIAL Routine 03/15/2023 9:40 PM CDT MAGNESIUM Routine 03/15/2023 9:40 PM CDT BASIC METABOLIC PANEL Routine 03/15/2023 9:40 PM CDT C. DIFFICILE TESTING Routine 03/15/2023 2:36 PM CDT VRE CULTURE, SURVEILLANCE Routine 03/15/2023 2:34 PM CDT EGFR Routine 03/14/2023 8:00 PM CDT MAGNESIUM Routine 03/14/2023 8:00 PM CDT BASIC METABOLIC PANEL Routine 03/14/2023 8:00 PM CDT ECG 12-LEAD STAT 03/14/2023 9:38 AM CDT EGFR Routine 03/13/2023 8:26 PM CDT MAGNESIUM Routine 03/13/2023 8:26 PM CDT BASIC METABOLIC PANEL Routine 03/13/2023 8:26 PM CDT CBC WITHOUT DIFFERENTIAL Timed 03/13/2023 10:43 AM CDT EGFR Routine 03/12/2023 8:30 PM CDT MAGNESIUM Routine 03/12/2023 8:30 PM CDT BASIC METABOLIC PANEL Routine 03/12/2023 8:30 PM CDT URINALYSIS AND REFLEX TO MICROSCOPIC Routine 03/12/2023 2:36 AM CDT EGFR Routine 03/11/2023 9:50 PM CDT MAGNESIUM Routine 03/11/2023 9:50 PM CDT BASIC METABOLIC PANEL Routine 03/11/2023 9:50 PM CDT XR ABDOMEN AP 1 VIEW IP Routine 03/11/2023 4:16 PM CDT DIFFERENTIAL AUTO Timed 03/11/2023 10:51 AM CDT CBC WITH AUTO DIFFERENTIAL Timed 03/11/2023 10:51 AM CDT CORTISOL Timed 03/11/2023 9:11 AM CDT EGFR Timed 03/10/2023 8:13 PM CDT MAGNESIUM Routine 03/10/2023 8:13 PM CDT BASIC METABOLIC PANEL Timed 03/10/2023 8:13 PM CDT EGFR Timed 03/10/2023 8:07 AM CDT BASIC METABOLIC PANEL Timed 03/10/2023 8:07 AM CDT CORTISOL,SALIVA Routine 03/09/2023 11:07 PM CDT EGFR Timed 03/09/2023 8:13 PM CDT MAGNESIUM Routine 03/09/2023 8:13 PM CDT BASIC METABOLIC PANEL Timed 03/09/2023 8:13 PM CDT DIFFERENTIAL AUTO Timed 03/09/2023 1:5 2 PM CDT CBC WITH AUTO DIFFERENTIAL Timed 03/09/2023 1:52 PM CDT ECG 12-LEAD Routine 03/09/2023 11:09 AM CDT EGFR Timed 03/09/2023 8:22 AM CDT BASIC METABOLIC PANEL Timed 03/09/2023 8:22 AM CDT EGFR Timed 03/08/2023 8:29 PM CDT MAGNESIUM Routine 03/08/2023 8:29 PM CDT BASIC METABOLIC PANEL Timed 03/08/2023 8:29 PM CDT EGFR Timed 03/08/2023 8:58 AM CDT BASIC METABOLIC PANEL Timed 03/08/2023 8:58 AM CDT MRI BRAIN WO CONTRAST IP Routine 03/07/2023 10:57 PM CDT EGFR Timed 03/07/2023 8:50 PM CDT MAGNESIUM Routine 03/07/2023 8:50 PM CDT BASIC METABOLIC PANEL Timed 03/07/2023 8:50 PM CDT EGFR Timed 03/07/2023 10:29 AM CDT BASIC METABOLIC PANEL Timed 03/07/2023 10:29 AM CDT EGFR Timed 03/06/2023 9:27 PM CDT MAGNESIUM Routine 03/06/2023 9:27 PM CDT BASIC METABOLIC PANEL Timed 03/06/2023 9:27 PM CDT URINALYSIS AND REFLEX TO MICROSCOPIC STAT 03/06/2023 3:41 PM CDT SODIUM, URINE, RANDOM STAT 03/06/2023 3:41 PM CDT CREATININE, URINE, RANDOM STAT 03/06/2023 3:41 PM CDT URINALYSIS, MICROSCOPIC ONLY STAT 03/06/2023 3:41 PM CDT EGFR STAT 03/06/2023 8:39 AM CDT BASIC METABOLIC PANEL STAT 03/06/2023 8:39 AM CDT ECG 12-LEAD STAT 03/06/2023 1:47 AM CDT EGFR Routine 03/05/2023 9:21 PM CDT MAGNESIUM Routine 03/05/2023 9:21 PM CDT BASIC METABOLIC PANEL Routine 03/05/2023 9:21 PM CDT EGFR Routine 03/04/2023 8:34 PM CDT MAGNESIUM Routine 03/04/2023 8:34 PM CDT BASIC METABOLIC PANEL Routine 03/04/2023 8:34 PM CDT ECG 12-LEAD STAT 03/04/2023 7:22 AM CDT EGFR Routine 03/03/2023 8:58 PM CDT MAGNESIUM Routine 03/03/2023 8:58 PM CDT VANCOMYCIN LEVEL TROUGH Routine 03/03/2023 8:58 PM CDT BASIC METABOLIC PANEL Routine 03/03/2023 8:58 PM CDT ECG 12-LEAD STAT 03/03/2023 1:08 PM CDT ECG 12-LEAD STAT 03/03/2023 9:34 AM CDT EGFR STAT 03/03/2023 9:30 AM CDT BASIC METABOLIC PANEL STAT 03/03/2023 9:30 AM CDT EGFR Routine 03/02/2023 9:18 PM CDT MAGNESIUM Routine 03/02/2023 9:18 PM CDT BASIC METABOLIC PANEL Routine 03/02/2023 9:18 PM CDT EGFR Routine 03/01/2023 8:14 PM CDT DIFFERENTIAL AUTO Routine 03/01/2023 8:1 4 PM CDT CBC WITH AUTO DIFFERENTIAL Routine 03/01/2023 8:14 PM CDT MAGNESIUM Routine 03/01/2023 8:14 PM CDT BASIC METABOLIC PANEL Routine 03/01/2023 8:14 PM CDT ECG 12-LEAD Routine 03/01/2023 10:16 AM CDT EGFR Routine 02/28/2023 8:33 PM CDT DIFFERENTIAL AUTO Routine 02/28/2023 8:3 3 PM CDT CBC WITH AUTO DIFFERENTIAL Routine 02/28/2023 8:33 PM CDT MAGNESIUM Routine 02/28/2023 8:33 PM CDT VANCOMYCIN LEVEL TROUGH Routine 02/28/2023 8:33 PM CDT BASIC METABOLIC PANEL Routine 02/28/2023 8:33 PM CDT EGFR Routine 02/27/2023 8:50 PM CDT DIFFERENTIAL AUTO Routine 02/27/2023 8:5 0 PM CDT CBC WITH AUTO DIFFERENTIAL Routine 02/27/2023 8:50 PM CDT MAGNESIUM Routine 02/27/2023 8:50 PM CDT BASIC METABOLIC PANEL Routine 02/27/2023 8:50 PM CDT DIGOXIN LEVEL Routine 02/27/2023 5:03 AM CDT EGFR Routine 02/26/2023 9:09 PM CDT DIFFERENTIAL AUTO Routine 02/26/2023 9:0 9 PM CDT CBC WITH AUTO DIFFERENTIAL Routine 02/26/2023 9:09 PM CDT MAGNESIUM Routine 02/26/2023 9:09 PM CDT BASIC METABOLIC PANEL Routine 02/26/2023 9:09 PM CDT XR WRIST RIGHT 3 OR MORE VIEWS IP Routine 02/26/2023 12:43 PM CDT XR RADIUS ULNA RIGHT 2 VIEWS Pending Discharge 02/26/2023 12:42 PM CDT ECG 12-LEAD Routine 02/26/2023 6:35 AM CDT DIGOXIN LEVEL Routine 02/26/2023 5:30 AM CDT EGFR Routine 02/25/2023 10:53 PM CDT DIFFERENTIAL AUTO Routine 02/25/2023 10:53 PM CDT CBC WITH AUTO DIFFERENTIAL Routine 02/25/2023 10:53 PM CDT MAGNESIUM Routine 02/25/2023 10:53 PM CDT BASIC METABOLIC PANEL Routine 02/25/2023 10:53 PM CDT TRANSESOPHAGEAL ECHO (HOOD) W DOPPLER/CF W CARDIOVERSION Routine 02/25/2023 1:43 PM CDT DIGOXIN LEVEL Routine 02/25/2023 4:54 AM CDT EGFR Routine 02/24/2023 8:50 PM CDT DIFFERENTIAL AUTO Routine 02/24/2023 8:5 0 PM CDT CBC WITH AUTO DIFFERENTIAL Routine 02/24/2023 8:50 PM CDT MAGNESIUM Routine 02/24/2023 8:50 PM CDT VANCOMYCIN LEVEL TROUGH Routine 02/24/2023 8:50 PM CDT BASIC METABOLIC PANEL Routine 02/24/2023 8:50 PM CDT APTT STAT 02/24/2023 10:41 AM CDT APTT STAT 02/24/2023 1:04 AM CDT DIGOXIN LEVEL Routine 02/24/2023 1:04 AM CDT EGFR Routine 02/23/2023 7:20 PM CDT DIFFERENTIAL AUTO Routine 02/23/2023 7:2 0 PM CDT CBC WITH AUTO DIFFERENTIAL Routine 02/23/2023 7:20 PM CDT MAGNESIUM Routine 02/23/2023 7:20 PM CDT BASIC METABOLIC PANEL Routine 02/23/2023 7:20 PM CDT APTT STAT 02/23/2023 6:27 PM CDT APTT STAT 02/23/2023 11:28 AM CDT EGFR Routine 02/23/2023 3:08 AM CDT IRON PROFILE W/ IBC Routine 02/23/2023 3 :08 AM CDT HEPATIC FUNCTION PANEL, SERUM Routine 02/23/2023 3:08 AM CDT APTT STAT 02/23/2023 3:08 AM CDT MAGNESIUM Routine 02/23/2023 3:08 AM CDT FERRITIN Routine 02/23/2023 3:08 AM CDT DIGOXIN LEVEL Routine 02/23/2023 3:08 AM CDT BASIC METABOLIC PANEL Routine 02/23/2023 3:08 AM CDT APTT STAT 02/22/2023 8:08 PM CDT EGFR Routine 02/22/2023 8:06 PM CDT DIFFERENTIAL AUTO Routine 02/22/2023 8:0 6 PM CDT CBC WITH AUTO DIFFERENTIAL Routine 02/22/2023 8:06 PM CDT MAGNESIUM Routine 02/22/2023 8:06 PM CDT BASIC METABOLIC PANEL Routine 02/22/2023 8:06 PM CDT BLOOD CULTURE Routine 02/22/2023 1:54 PM CDT BLOOD CULTURE Routine 02/22/2023 1:39 PM CDT POCT GLUCOSE DEVICE Routine 02/22/2023 11:40 AM CDT POCT GLUCOSE DEVICE Routine 02/22/2023 7 :35 AM CDT DIGOXIN LEVEL Routine 02/22/2023 4:23 AM CDT APTT STAT 02/21/2023 8:36 PM CDT EGFR Routine 02/21/2023 8:35 PM CDT DIFFERENTIAL AUTO Routine 02/21/2023 8:3 5 PM CDT CBC WITH AUTO DIFFERENTIAL Routine 02/21/2023 8:35 PM CDT MAGNESIUM Routine 02/21/2023 8:35 PM CDT BASIC METABOLIC PANEL Routine 02/21/2023 8:35 PM CDT POCT GLUCOSE DEVICE Routine 02/21/2023 4 :[address] ENTIRE UPPER EXTREMITY LEFT W CONTRAST ED Urgent/IP Urgent 02/21/2023 2:40 PM CDT POCT GLUCOSE DEVICE Routine 02/21/2023 7 :36 AM CDT US UPPER EXTREMITY LEFT LIMITED IP Routine 02/21/2023 6:27 AM CDT APTT STAT 02/21/2023 6:14 AM CDT DIGOXIN LEVEL Routine 02/21/2023 6:14 AM CDT APTT STAT 02/21/2023 12:05 AM CDT APTT STAT 02/20/2023 10:56 PM CDT EGFR Routine 02/20/2023 8:16 PM CDT DIFFERENTIAL AUTO Routine 02/20/2023 8:1 6 PM CDT CBC WITH AUTO DIFFERENTIAL Routine 02/20/2023 8:16 PM CDT BLOOD CULTURE Routine 02/20/2023 8:16 PM CDT BLOOD CULTURE Routine 02/20/2023 8:16 PM CDT MAGNESIUM Routine 02/20/2023 8:16 PM CDT VANCOMYCIN LEVEL TROUGH Timed 02/20/2023 8:16 PM CDT BASIC METABOLIC PANEL Routine 02/20/2023 8:16 PM CDT XR RADIUS ULNA RIGHT 2 VIEWS IP Routine 02/20/2023 5:58 PM CDT XR WRIST RIGHT 3 OR MORE VIEWS IP Routine 02/20/2023 5:57 PM CDT EGFR Timed 02/20/2023 4:55 PM CDT APTT STAT 02/20/2023 4:55 PM CDT MAGNESIUM Timed 02/20/2023 4:55 PM CDT HEPATIC FUNCTION PANEL Timed 4:55 PM CDT BASIC METABOLIC PANEL Timed 02/20/2023 4:55 PM CDT XR WRIST RIGHT 3 OR MORE VIEWS IP Routine 02/20/2023 12:11 PM CDT POCT GLUCOSE DEVICE Routine 02/20/2023 11:10 AM CDT APTT STAT 02/20/2023 10:34 AM CDT TRANSTHORACIC ECHO (TTE) COMPLETE W DOPPLER/CF W CONTRAST ED Urgent/IP Urgent 02/20/2023 10:24 AM CDT EGFR Timed 02/20/2023 3:51 AM CDT DIFFERENTIAL AUTO Routine 02/20/2023 3:5 1 AM CDT CBC WITH AUTO DIFFERENTIAL Routine 02/20/2023 3:51 AM CDT MAGNESIUM Timed 02/20/2023 3:51 AM CDT DIGOXIN LEVEL Routine 02/20/2023 3:51 AM CDT BASIC METABOLIC PANEL Timed 02/20/2023 3:51 AM CDT APTT STAT 02/20/2023 1:39 AM CDT EGFR Timed 02/19/2023 5:50 PM CDT APTT Timed 02/19/2023 5:50 PM CDT MAGNESIUM Timed 02/19/2023 5:50 PM CDT BASIC METABOLIC PANEL Timed 02/19/2023 5:50 PM CDT XR CHEST 1 VIEW ED Urgent/IP Urgent 02/19/2023 3:43 PM CDT XR WRIST RIGHT 3 OR MORE VIEWS IP Routine 02/19/2023 12:21 PM CDT XR RADIUS ULNA RIGHT 2 VIEWS IP Routine 02/19/2023 12:20 PM CDT XR HAND RIGHT 3 OR MORE VIEWS IP Routine 02/19/2023 12:20 PM CDT XR ELBOW RIGHT 3 OR MORE VIEWS IP Routine 02/19/2023 12:20 PM CDT APTT Routine 02/19/2023 11:37 AM CDT EGFR Timed 02/19/2023 5:02 AM CDT DIFFERENTIAL AUTO Routine 02/19/2023 5:0 2 AM CDT CBC WITH AUTO DIFFERENTIAL Routine 02/19/2023 5:02 AM CDT APTT STAT 02/19/2023 5:02 AM CDT MAGNESIUM Timed 02/19/2023 5:02 AM CDT DIGOXIN LEVEL Routine 02/19/2023 5:02 AM CDT BASIC METABOLIC PANEL Timed 02/19/2023 5:02 AM CDT EGFR Timed 02/18/2023 5:33 PM CDT CRITICAL RESULT CALLBACK CHEMISTRY Timed 02/18/2023 5:33 PM CDT MAGNESIUM Timed 02/18/2023 5:33 PM CDT VANCOMYCIN LEVEL TROUGH Timed 02/18/2023 5:33 PM CDT DIGOXIN LEVEL Timed 02/18/2023 5:33 PM CDT BASIC METABOLIC PANEL Timed 02/18/2023 5:[address] CHEST ABDOMEN PELVIS W CONTRAST IP Routine 02/18/2023 2:13 PM CDT APTT Routine 02/18/2023 8:50 AM CDT EGFR Timed 02/18/2023 4:26 AM CDT DIFFERENTIAL AUTO Routine 02/18/2023 4:2 6 AM CDT THYROID FUNCTION CASCADE Routine 02/18/2023 4:26 AM CDT CBC WITH AUTO DIFFERENTIAL Routine 02/18/2023 4:26 AM CDT RETICULOCYTES Routine 02/18/2023 4:26 AM CDT MAGNESIUM Timed 02/18/2023 4:26 AM CDT HEMOGLOBIN A1C Routine 02/18/2023 4:26 AM CDT FOLATE Routine 02/18/2023 4:26 AM CDT VITAMIN B12 Routine 02/18/2023 4:26 AM CDT LIPID PANEL Routine 02/18/2023 4:26 AM CDT BASIC METABOLIC PANEL Timed 02/18/2023 4:26 AM CDT APTT STAT 02/18/2023 2:25 AM CDT XR RADIUS ULNA RIGHT 2 VIEWS ED Urgent/IP Urgent 02/17/2023 11:25 PM CDT XR HUMERUS RIGHT 2 OR MORE VIEWS IP Routine 02/17/2023 8:55 PM CDT XR CHEST 1 VIEW ED Urgent/IP Urgent 02/17/2023 8:[address] BODY OUTSIDE CONSULT Routine 02/17/2023 8:13 PM CDT XR TRANSFER OF OUTSIDE FILMS Routine 02/17/2023 8:11 PM CDT XR TRANSFER OF OUTSIDE FILMS Routine 02/17/2023 8:09 PM CDT INFECTION PREVENTION MRSA ONLY (STAPHYLOCOCCUS AUREUS) CULTURE Routine 02/17/2023 6:29 PM CDT URINALYSIS AND REFLEX TO MICROSCOPIC AND CULTURE STAT 02/17/2023 6:27 PM CDT URINALYSIS, MICROSCOPIC ONLY STAT 02/17/2023 6:27 PM CDT URINE CULTURE STAT 02/17/2023 6:27 PM CDT BLOOD CULTURE STAT 02/17/2023 5:47 PM CDT BLOOD CULTURE STAT 02/17/2023 5:47 PM CDT TROPONIN I HIGH-SENSITIVITY Timed 02/17/2023 5:44 PM CDT LACTATE Timed 02/17/2023 5:44 PM CDT HC ANTIBODY SCREEN RBC STAT 5:44 PM CDT EGFR STAT 02/17/2023 5:43 PM CDT DIFFERENTIAL AUTO Routine 02/17/2023 5:4 3 PM CDT CBC WITH AUTO DIFFERENTIAL Routine 02/17/2023 5:43 PM CDT APTT STAT 02/17/2023 5:43 PM CDT PROTIME-INR STAT 02/17/2023 5:43 PM CDT MAGNESIUM STAT 02/17/2023 5:43 PM CDT VANCOMYCIN LEVEL RANDOM STAT 02/17/2023 5:43 PM CDT COMPREHENSIVE METABOLIC PANEL STAT 02/17/2023 5:43 PM CDT ECG 12-LEAD STAT 02/17/2023 5:19 PM CDT documented in this encounter Results * COVID-19 Coronavirus RNA Nasopharyngeal (03/21/2023 10:28 AM CDT) COVID-19 RNA Negative Negative [facility] Nasopharyngeal 03/21/2023 10 :28 AM CDT 03/21/2023 11:43 AM CDT Narrative [facility] - 03/21/2023 12:54 PM CDT Is the patient experiencing any symptoms consistent with COVID (eg. Fever, cough, shortness of breath)?->No What is the reason for testing?->Placement in post-acute care setting (Rapid) ??Interpretive data: Synonyms for this test include: PCR and NAAT . ??This test is performed using the [employer] Xpert Xpress plus assay. This is a real-time RT-PCR test intended for the qualitative detection of nucleic acid from the SARS-CoV-2. This assay has been reviewed by the FDA for Emergency Use Authorization (EUA). The performance characteristics have been verified by the performing laboratory. Results must be considered in the clinical context and a negative result does not rule out infection. Interpretive data last revised November 14, 2021. us Gordon Huang MD LAB MICROBIOLOGY - NERAL ORDERABLES Final Result [facility] Department [place] [address] * (ABNORMAL) eGFR (03/20/2023 9:53 PM CDT) eGFR 46(L) 90 - 130 mL/min/1. 73 m2 [facility] Comment: Interpretive Data Reference Interval Normal ?>/= [...] interpretive data was last reviewed 2021. Blood 03/20/2023 9:53 PM CDT 03/20/2023 10:19 PM CDT Gordon Huang MD LAB BLOOD ORDERABLES Final Result [facility] [place] [address] * Magnesium (03/20/2023 9:53 PM CDT) [facility] Magnesium 1.7 1.4 - 2.5 mg/dL [facility] Blood 03/20/2023 9:53 PM CDT 03/20/2023 10:19 PM CDT Gordon Huang MD LAB BLOOD ORDERABLES Final Result Performing Organization Address [facility] Co de Phone Number [facility] [place] [address] * (ABNORMAL) CBC without differential (03/20/2023 9:53 PM CDT) [facility] WBC 5.8 3.8 - 9.9 K/cumm [facility] Hgb 8.7(L) 11.9 - 15.5 g/dL [facility] Hct 26.9(L) 35.6 - 45.5 % [facility] Plt 216 150 - 400 K/cumm [facility] MPV 11.3 9.1 - 12.3 fL [facility] RBC 3.00(L) 3.90 - 5.20 M/cumm [facility] MCV 89.7 81.3 - 96.4 fL [facility] MCH 29.0 27.1 - 33.3 pg [facility] MCHC 32.3 32.3 - 35.7 g/dL [facility] RDW CV 15.9(H) 11.1 - 14.9 % [facility] RDW SD 51.5(H) 35.7 - 48.1 fL [facility] NRBC abs 0.00 0.00 - 0.01 K/cumm [facility] Blood 03/20/2023 9:53 PM CDT 03/20/2023 10:19 PM CDT us Gordon Huang MD LAB BLOOD ORDERABLES Final Result [facility] Department [place] [address] * (ABNORMAL) Basic metabolic panel (03/20/2023 9:53 PM CDT) [facility] Sodium 141 135 - 145 mmol/L [facility] Potassium, pl 3.4 3.3 - 4.9 mmol/L [facility] Chloride 106 97 - 110 mmol/L [facility] CO2 28 22 - 32 mmol/L [facility] Anion gap 7 2 - 15 mmol/L [facility] BUN 8 6 - 25 mg/dL [facility] Creatinine 1.22(H) 0.60 - 1.10 mg/dL [facility] Glucose 112 70 - 199 mg/dL [facility] Comment: Interpretive Data Fasting glucose >/= 126 [...] 2022. Calcium 9.3 8.5 - 10.3 mg/dL [facility] Blood 03/20/2023 9:53 PM CDT 03/20/2023 10:19 PM CDT Gordon Huang MD LAB BLOOD ORDERABLES Final Result Performing Organization Address City/[facility]/ZIP Co de Phone Number [facility] [place] [address] * XR Wrist Right 2 Views (03/20/2023 12:54 PM CDT) Anatomical Region Laterality Modality Upper Extremities, Wrist Right Digital Radiography 03/20/2023 1:30 PM CDT Impressions 03/20/2023 1:30 PM CDT 1. ??Healing mildly impacted, displaced, intra-articular fracture of the distal radius in unchanged alignment. Electronically signed by: Sameer Mccray MD Narrative 03/20/2023 1:30 PM CDT EXAMINATION: XR WRIST RIGHT 2 VIEWS HISTORY: ??Fracture FINDINGS: Comparison 02/26/2023. ??2 radiographs of the right wrist are submitted for interpretation. Interval removal of cast. ??Redemonstrated mildly impacted, displaced, intra-articular fracture of the distal radius in unchanged alignment. There is been increased cortical bridging at the fracture site compatible with healing. ??No new fractures. Procedure Note Sameer Mccray MD - 03/20/2023 EXAMINATION: XR WRIST RIGHT 2 VIEWS HISTORY: Fracture FINDINGS: Comparison 02/26/2023. 2 radiographs of the right wrist are submitted for interpretation. Interval removal of cast. Redemonstrated mildly impacted, displaced, intra-articular fracture of the distal radius in unchanged alignment. There is been increased cortical bridging at the fracture site compatible with healing. No new fractures. IMPRESSION: 1. Healing mildly impacted, displaced, intra-articular fracture of the distal radius in unchanged alignment. Electronically signed by: Sameer Mccray MD Gordon Huang MD IMG XR PROCEDURES Fin al Result * (ABNORMAL) eGFR (03/19/2023 9:43 PM CDT) Pathologist [facility] eGFR 38(L) 90 - 130 mL/min/1. 73 m2 [facility] Comment: Interpretive Data Reference Interval Normal ?>/= [...] interpretive data was last reviewed 2021. Blood 03/19/2023 9:43 PM CDT 03/19/2023 10:24 PM CDT us Benjamín Mancuso MD LAB BLOOD ORDERABLES Fi nal Result [facility] Department [place] [address] * (ABNORMAL) CBC without differential (03/19/2023 9:43 PM CDT) WBC 6.1 3.8 - 9.9 K/cumm [facility] Hgb 8.5(L) 11.9 - 15.5 g/dL [facility] Hct 25.8(L) 35.6 - 45.5 % [facility] Plt 196 150 - 400 K/cumm [facility] MPV 11.5 9.1 - 12.3 fL [facility] RBC 2.88(L) 3.90 - 5.20 M/cumm [facility] MCV 89.6 81.3 - 96.4 fL [facility] MCH 29.5 27.1 - 33.3 pg [facility] MCHC 32.9 32.3 - 35.7 g/dL [facility] RDW CV 15.7(H) 11.1 - 14.9 % [facility] RDW SD 51.7(H) 35.7 - 48.1 fL [facility] NRBC abs 0.00 0.00 - 0.01 K/cumm [facility] Blood 03/19/2023 9:43 PM CDT 03/19/2023 10:24 PM CDT us Benjamín Mancuso MD LAB BLOOD ORDERABLES Fi nal Result Performing Organization Address [facility]/ZIP Co de Phone Number [facility] Department [place] [address] * (ABNORMAL) Basic metabolic panel (03/19/2023 9:43 PM CDT) [facility] Sodium 141 135 - 145 mmol/L [facility] Potassium, pl 3.5 3.3 - 4.9 mmol/L [facility] Chloride 106 97 - 110 mmol/L [facility] CO2 28 22 - 32 mmol/L [facility] Anion gap 7 2 - 15 mmol/L [facility] BUN 7 6 - 25 mg/dL [facility] Creatinine 1.42(H) 0.60 - 1.10 mg/dL [facility] Glucose 108 70 - 199 mg/dL [facility] Comment: Interpretive Data Fasting glucose >/= 126 [...] 2022. Calcium 9.3 8.5 - 10.3 mg/dL [facility] Blood 03/19/2023 9:43 PM CDT 03/19/2023 10:24 PM CDT us Benjamín Mancuso MD LAB BLOOD ORDERABLES Fi nal Result Performing Organization Address City/[facility]/ZIP Co de Phone Number [facility] Department [place] [address] * Magnesium (03/19/2023 9:43 PM CDT) [facility] Magnesium 1.9 1.4 - 2.5 mg/dL [facility] Blood 03/19/2023 9:43 PM CDT 03/19/2023 10:24 PM CDT us Estella Ellis MD PhD LAB BLOOD ORDERABL ES Final Result Performing Organization Address [facility] Co de Phone Number [facility] [place] [address] * (ABNORMAL) eGFR (03/18/2023 9:59 PM CDT) [facility] eGFR 44(L) 90 - 130 mL/min/1. 73 m2 [facility] Comment: Interpretive Data Reference Interval Normal ?>/= [...] interpretive data was last reviewed 2021. Blood 03/18/2023 9:59 PM CDT 03/18/2023 10:22 PM CDT Benjamín Mancuso MD LAB BLOOD ORDERABLES Fi nal Result Performing Organization Address City/[facility]/ZIP Co de Phone Number [facility] [place] [place] [address] * (ABNORMAL) CBC without differential (03/18/2023 9:59 PM CDT) [facility] WBC 5.4 3.8 - 9.9 K/cumm [facility] Hgb 8.5(L) 11.9 - 15.5 g/dL [facility] Hct 26.0(L) 35.6 - 45.5 % [facility] Plt 171 150 - 400 K/cumm [facility] MPV 11.3 9.1 - 12.3 fL [facility] RBC 2.92(L) 3.90 - 5.20 M/cumm [facility] MCV 89.0 81.3 - 96.4 fL [facility] MCH 29.1 27.1 - 33.3 pg [facility] MCHC 32.7 32.3 - 35.7 g/dL [facility] RDW CV 15.8(H) 11.1 - 14.9 % [facility] RDW SD 51.5(H) 35.7 - 48.1 fL [facility] NRBC abs 0.00 0.00 - 0.01 K/cumm [facility] Blood 03/18/2023 9:59 PM CDT 03/18/2023 10:23 PM CDT Benjamín Mancuso MD LAB BLOOD ORDERABLES Fi nal Result [facility] [place] [address] * (ABNORMAL) Basic metabolic panel (03/18/2023 9:59 PM CDT) Sodium 140 135 - 145 mmol/L [facility] Potassium, pl 3.6 3.3 - 4.9 mmol/L [facility] Chloride 105 97 - 110 mmol/L [facility] CO2 27 22 - 32 mmol/L [facility] Anion gap 8 2 - 15 mmol/L [facility] BUN 5(L) 6 - 25 mg/dL [facility] Creatinine 1.26(H) 0.60 - 1.10 mg/dL [facility] Glucose 97 70 - 199 mg/dL [facility] Comment: Interpretive Data Fasting glucose >/= 126 [...] 2022. Calcium 9.2 8.5 - 10.3 mg/dL [facility] Blood 03/18/2023 9:59 PM CDT 03/18/2023 10:22 PM CDT us Benjamín Mancuso MD LAB BLOOD ORDERABLES Fi nal Result [facility] Department [place] [address] * Magnesium (03/18/2023 9:59 PM CDT) Magnesium 2.2 1.4 - 2.5 mg/dL [facility] Blood 03/18/2023 9:59 PM CDT 03/18/2023 10:22 PM CDT us Estella Ellis MD PhD LAB BLOOD ORDERABL ES Final Result Performing Organization Address [facility] Co de Phone Number [facility] Department [place] [address] * (ABNORMAL) eGFR (03/17/2023 7:58 PM CDT) eGFR 47(L) 90 - 130 mL/min/1. 73 m2 [facility] Comment: Interpretive Data Reference Interval Normal ?>/= [...] interpretive data was last reviewed 2021. Blood 03/17/2023 7:58 PM CDT 03/17/2023 8:52 PM CDT us Benjamín Mancuso MD LAB BLOOD ORDERABLES Fi nal Result Performing Organization Address [facility]/State/ZIP Co de Phone Number [facility] Department [place] [address] * (ABNORMAL) CBC without differential (03/17/2023 7:58 PM CDT) [facility] WBC 4.9 3.8 - 9.9 K/cumm [facility] Hgb 8.2(L) 11.9 - 15.5 g/dL [facility] Hct 25.5(L) 35.6 - 45.5 % [facility] Plt 115(L) 150 - 400 K/cumm [facility] MPV 11.8 9.1 - 12.3 fL [facility] RBC 2.89(L) 3.90 - 5.20 M/cumm [facility] MCV 88.2 81.3 - 96.4 fL [facility] MCH 28.4 27.1 - 33.3 pg [facility] MCHC 32.2(L) 32.3 - 35.7 g/dL [facility] RDW CV 15.9(H) 11.1 - 14.9 % [facility] RDW SD 52.0(H) 35.7 - 48.1 fL [facility] NRBC abs 0.00 0.00 - 0.01 K/cumm [facility] Blood 03/17/2023 7:58 PM CDT 03/17/2023 8:52 PM CDT us Benjamín Mancuso MD LAB BLOOD ORDERABLES Fi nal Result [facility] Department [place] [address] * (ABNORMAL) Basic metabolic panel (03/17/2023 7:58 PM CDT) [facility] Sodium 141 135 - 145 mmol/L [facility] Potassium, pl 3.3 3.3 - 4.9 mmol/L [facility] Chloride 104 97 - 110 mmol/L [facility] CO2 26 22 - 32 mmol/L [facility] Anion gap 11 2 - 15 mmol/L [facility] BUN 4(L) 6 - 25 mg/dL [facility] Creatinine 1.19(H) 0.60 - 1.10 mg/dL [facility] Glucose 83 70 - 199 mg/dL [facility] Comment: Interpretive Data Fasting glucose >/= 126 [...] interpretive data was last revised 2022. Calcium 9.0 8.5 - 10.3 mg/dL [facility] Blood 03/17/2023 7:58 PM CDT 03/17/2023 8:52 PM CDT Benjamín Mancuso MD LAB BLOOD ORDERABLES Fi nal Result Performing Organization Address City/[facility]/ZIP Co de Phone Number [facility] [place] [address] * Magnesium (03/17/2023 7:58 PM CDT) Pathologist [facility] Magnesium 1.4 1.4 - 2.5 mg/dL [facility] Blood 03/17/2023 7:58 PM CDT 03/17/2023 8:52 PM CDT Estella Ellis MD PhD LAB BLOOD ORDERABL ES Final Result Performing Organization Address City/[facility] Co de Phone Number [facility] [place] [address] * Immunofixation, urine (03/17/2023 11:31 AM CDT) Immunofixation, Ur Please see comment [facility] Comment: NO PARAPROTEIN DETECTED Reviewed and signed by Braxton Donaldson MD 03/18/2023 Urine 03/17/2023 11:3 1 AM CDT 03/17/2023 12:26 PM CDT Gordon Huang MD LAB URINE ORDERABLES Final Result Performing Organization Address [facility] de Phone Number [facility] [place] [address] * (ABNORMAL) Urinalysis, microscopic only (03/17/2023 11:31 AM CDT) WBC, ur 21-50(A) 0 - 5 /HPF [facility] RBC, ur 0-2 0 - 2 /HPF [facility] Epithelial cells, squamous, ur 1-5 0 - 5 /HPF [facility] Mucous, ur Present(A) [facility] Urine 03/17/2023 11:3 1 AM CDT 03/17/2023 12:21 PM CDT Gordon Huang MD LAB URINE ORDERABLES Final Result Performing Organization Address [facility] de Phone Number [facility] [place] [address] * (ABNORMAL) Protein / creatinine ratio, urine, random (03/17/2023 11:31 AM CDT) Protein, ur, quant 51.6 mg/dL [facility] Comment: Interpretive Data No reference range established. Current interpretive data was last revised 2018. Creatinine Ur 47.2 mg/dL [facility] Comment: Interpretive Data No reference range established. Current interpretive data was last revised 2018. Protein/creatinin e ratio 1,093.2(H ) 0.0 - 180.0 mg/g CR [facility] Urine 03/17/2023 11:3 1 AM CDT 03/17/2023 12:26 PM CDT Gordon Huang MD LAB URINE ORDERABLES Final Result Performing Organization Address [facility]/State/ZIP Co de Phone Number VALENTE RAMIREZ [facility] [place] [address] * (ABNORMAL) Urinalysis reflex to microscopic (03/17/2023 11:31 AM CDT) Color, ur Yellow Yellow [facility] Clarity, ur Cloudy(A) Clear [facility] Specific gravity, ur 1.021 1.003 - 1.030 [facility] pH, urine 7.0 [facility] Comment: Interpretive Data ? Urine pH is affected by diet, medications, systemic acid-base disturbances, and renal tubular function. ??pH may affect urinary stone formation. ??For example, urine pH below 6.0 may help reduce the tendency for calcium phosphate stones and pH greater than 6.0 may reduce the tendency for uric acid stone formation. Source: [facility] Current Interpretive Data was last revised on 2017 Protein, ur ql 1+(A) Negative [facility] Glucose, ur ql Negative Negative [facility] Ketones, ur 1+(A) Negative [facility] Bilirubin, ur Negative Negative [facility] Blood, ur 1+(A) Negative [facility] Urobilinogen, ur <2.0 <2.0 mg/dL [facility] Nitrite, ur Negative Negative [facility] Leukocyte esterase, ur 3+(A) Negative [facility] UA reflex comment Reflex to microscopic UA will be performed. [facility] Urine 03/17/2023 11:3 1 AM CDT 03/17/2023 12:21 PM CDT us Gordon Huang MD LAB URINE ORDERABLES Final Result [facility] Department [place] [address] * (ABNORMAL) Immunoglobulin free light chains (03/17/2023 11:31 AM CDT) [place]/Lambda ratio 1.24 0.26 - 1.65 [facility] [place] free light chain 2.92(H) 0.33 - 1.94 mg/dL [facility] Comment: Interpretive Data The Kana Ig [place] FLC assay procedure was used. Results from different manufacturers or methods may not be comparable. Serial testing should be performed using the same method. Lambda free light chain 2.35 0.57 - 2.63 mg/dL [facility] Comment: Interpretive Data The Kana Ig Lambda FLC assay procedure was used. Results from different manufacturers or methods may not be comparable. Serial testing should be performed using the same method. Blood 03/17/2023 11:3 1 AM CDT 03/17/2023 12:27 PM CDT Gordon Huang MD LAB BLOOD ORDERABLES Final Result Performing Organization Address [facility] Co de Phone Number [facility] Department [place] [address] * Immunotyping, serum (03/17/2023 11:31 AM CDT) Immunosubtraction Please see comment [facility] Comment: NO PARAPROTEIN DETECTED Reviewed and signed by Braxton Donaldson MD 03/18/2023 Blood 03/17/2023 11:3 1 AM CDT 03/17/2023 12:26 PM CDT Narrative [facility] - 03/18/2023 2:53 PM CDT Indication:->AL amyloidosis screen Gordon Huang MD LAB BLOOD ORDERABLES Final Result Performing Organization Address [facility] Co de Phone Number [facility] Department [place] [address] * CT Abdomen Pelvis W Contrast (03/16/2023 10:15 PM CDT) Anatomical Region Laterality Modality Body N/A Computed Tomogra phy 03/17/2023 3:52 AM CDT Impressions 03/17/2023 3:52 AM CDT 1. No definite explanation for patient's abdominal pain. Possible colitis given liquid contents within colon. 2. Slight increase in bilateral pleural effusions. Electronically signed by: Beto Sinha M.D. Narrative 03/17/2023 3:52 AM CDT Examination: CT abdomen and pelvis with intravenous contrast TECHNIQUE: Standard CT of the abdomen and pelvis was performed after the administration of Optiray 350 intravenous contrast. ??The following amount of contrast was administered for [...] unchanged with again noted T11 compression deformity. Procedure Note Beto Sinha MD - 03/17/2023 Examination: CT abdomen and pelvis with intravenous [...] unchanged with again noted T11 compression deformity. IMPRESSION: 1. No definite explanation for patient's abdominal pain. Possible colitis given liquid contents within colon. 2. Slight increase in bilateral pleural effusions. Electronically signed by: Beto Sinha M.D. Benjamín Mancuso MD IMG CT PROCEDURES Final Result * (ABNORMAL) eGFR (03/16/2023 7:49 PM CDT) eGFR 46(L) 90 - 130 mL/min/1. 73 m2 [facility] Comment: Interpretive Data Reference Interval Normal ?>/= [...] interpretive data was last reviewed 2021. Blood 03/16/2023 7:49 PM CDT 03/16/2023 8:55 PM CDT Benjamín Mancuso MD LAB BLOOD ORDERABLES Fi nal Result Performing Organization Address [facility] Co de Phone Number [facility] [place] [address] * (ABNORMAL) CBC without differential (03/16/2023 7:49 PM CDT) Pathologist [facility] WBC 3.9 3.8 - 9.9 K/cumm [facility] Hgb 8.0(L) 11.9 - 15.5 g/dL [facility] Hct 24.9(L) 35.6 - 45.5 % [facility] Plt 94(L) 150 - 400 K/cumm [facility] MPV 11.4 9.1 - 12.3 fL [facility] RBC 2.79(L) 3.90 - 5.20 M/cumm [facility] MCV 89.2 81.3 - 96.4 fL [facility] MCH 28.7 27.1 - 33.3 pg [facility] MCHC 32.1(L) 32.3 - 35.7 g/dL [facility] RDW CV 16.1(H) 11.1 - 14.9 % [facility] RDW SD 53.1(H) 35.7 - 48.1 fL [facility] NRBC abs 0.00 0.00 - 0.01 K/cumm [facility] Blood 03/16/2023 7:49 PM CDT 03/16/2023 8:55 PM CDT Benjamín Mancuso MD LAB BLOOD ORDERABLES Fi nal Result Performing Organization Address [facility]/ZIP Co de Phone Number [facility] [place] [address] * (ABNORMAL) Basic metabolic panel (03/16/2023 7:49 PM CDT) Sodium 142 135 - 145 mmol/L [facility] Potassium, pl 3.6 3.3 - 4.9 mmol/L [facility] Chloride 106 97 - 110 mmol/L [facility] CO2 25 22 - 32 mmol/L [facility] Anion gap 11 2 - 15 mmol/L [facility] BUN 5(L) 6 - 25 mg/dL [facility] Creatinine 1.23(H) 0.60 - 1.10 mg/dL [facility] Glucose 83 70 - 199 mg/dL [facility] Comment: Interpretive Data Fasting glucose >/= 126 [...] 2022. Calcium 8.6 8.5 - 10.3 mg/dL [facility] Blood 03/16/2023 7:49 PM CDT 03/16/2023 8:55 PM CDT us Benjamín Mancuso MD LAB BLOOD ORDERABLES Fi nal Result [facility] Department [place] [address] * Magnesium (03/16/2023 7:49 PM CDT) Pathologist [facility] Magnesium 1.4 1.4 - 2.5 mg/dL [facility] Blood 03/16/2023 7:49 PM CDT 03/16/2023 8:55 PM CDT Estella Ellis MD PhD LAB BLOOD ORDERABL ES Final Result [facility] [place] [address] * Phosphorus (03/16/2023 7:49 PM CDT) [facility] Phosphorus, pl 2.3 2.3 - 4.5 mg/dL [facility] Blood 03/16/2023 7:49 PM CDT 03/16/2023 8:55 PM CDT Benjamín Mancuso MD LAB BLOOD ORDERABLES Fi nal Result Performing Organization Address City/[facility]/ZIP Co de Phone Number [facility] [place] [address] * (ABNORMAL) CBC without differential (03/16/2023 6:25 AM CDT) [facility] WBC 3.9 3.8 - 9.9 K/cumm [facility] Hgb 8.5(L) 11.9 - 15.5 g/dL [facility] Hct 26.2(L) 35.6 - 45.5 % [facility] Plt 89(L) 150 - 400 K/cumm [facility] MPV 11.0 9.1 - 12.3 fL [facility] RBC 2.92(L) 3.90 - 5.20 M/cumm [facility] MCV 89.7 81.3 - 96.4 fL [facility] MCH 29.1 27.1 - 33.3 pg [facility] MCHC 32.4 32.3 - 35.7 g/dL [facility] RDW CV 16.3(H) 11.1 - 14.9 % [facility] RDW SD 53.9(H) 35.7 - 48.1 fL [facility] NRBC abs 0.00 0.00 - 0.01 K/cumm [facility] Blood 03/16/2023 6:25 AM CDT 03/16/2023 7:22 AM CDT Benjamín Mancuso MD LAB BLOOD ORDERABLES Fi nal Result Performing Organization Address City/[facility]/ZIP Co de Phone Number [facility] [place] [address] * Transfuse RBC (03/16/2023 5:24 AM CDT) Blood Benjamín Mancuso MD BLOOD TRANSFUSION ORDER JASMYNE Final Result Performing Organization Address [facility] [place] [address] * Transfuse RBC: 1 Units (03/16/2023 5:24 AM CDT) Blood Benjamín Mancuso MD BLOOD TRANSFUSION ORDER JASMYNE Final Result * Prepare RBC: 1 Units (03/16/2023 1:11 AM CDT) Product code [id number] [facility] Unit Number [id number] [facility] Product Blood Type BNEG [facility] Dispense Status PRESUMED TRANSFUSED [facility] Blood 03/16/2023 1:11 AM CDT 03/16/2023 1:11 AM CDT Narrative [facility] - 03/17/2023 12:47 AM CDT Are special requirements needed? (All products are leukoreduced and CMV- safe)- >No Date required:-[id number] LRRBC # of [id number] Reasons:-Hgb <7 g/dL} Benjamín Mancuso MD BLOOD BANK PRODUCT ORDE RABLES Final Result Performing Organization Address [facility] Co de Phone Number [facility] [place] [address] * (ABNORMAL) CBC without differential (03/15/2023 11:49 PM CDT) WBC 3.8 3.8 - 9.9 K/cumm [facility] Hgb 6.9(L) 11.9 - 15.5 g/dL [facility] Hct 20.8(L) 35.6 - 45.5 % [facility] Plt 85(L) 150 - 400 K/cumm [facility] MPV 11.5 9.1 - 12.3 fL [facility] RBC 2.26(L) 3.90 - 5.20 M/cumm [facility] MCV 92.0 81.3 - 96.4 fL [facility] MCH 30.5 27.1 - 33.3 pg [facility] MCHC 33.2 32.3 - 35.7 g/dL [facility] RDW CV 15.2(H) 11.1 - 14.9 % [facility] RDW SD 51.1(H) 35.7 - 48.1 fL [facility] NRBC abs 0.00 0.00 - 0.01 K/cumm [facility] Blood 03/15/2023 11:4 9 PM CDT 03/16/2023 12:30 AM CDT Janneth Moore MD LAB BLOOD ORDERABLES Final Resul t Performing Organization Address City/[facility] de Phone Number [facility] Department [place] [address] * Type and screen (03/15/2023 11:49 PM CDT) Cheri, indirect Negative [facility] ABO Rh B Negative [facility] Blood 03/15/2023 11:4 9 PM CDT 03/16/2023 12:15 AM CDT Narrative [facility] - 03/16/2023 1:03 AM CDT Has the patient had Daratumumab or Isatuximab in the past 6 months?->Unknown Janneth Moore MD LAB BLOOD BANK TEST ORDERABLES F inal Result [facility] Department [place] [address] * (ABNORMAL) eGFR (03/15/2023 9:40 PM CDT) eGFR 38(L) 90 - 130 mL/min/1. 73 m2 [facility] Comment: Interpretive Data Reference Interval Normal ?>/= [...] interpretive data was last reviewed 2021. Blood 03/15/2023 9:40 PM CDT 03/15/2023 10:26 PM CDT us Benjamín Mancuso MD LAB BLOOD ORDERABLES Fi nal Result [facility] Department [place] [address] * (ABNORMAL) CBC without differential (03/15/2023 9:40 PM CDT) [facility] WBC 3.6(L) 3.8 - 9.9 K/cumm [facility] Hgb 6.9(L) 11.9 - 15.5 g/dL [facility] Hct 21.9(L) 35.6 - 45.5 % [facility] Plt 86(L) 150 - 400 K/cumm [facility] MPV 11.3 9.1 - 12.3 fL [facility] RBC 2.33(L) 3.90 - 5.20 M/cumm [facility] MCV 94.0 81.3 - 96.4 fL [facility] MCH 29.6 27.1 - 33.3 pg [facility] MCHC 31.5(L) 32.3 - 35.7 g/dL [facility] RDW CV 15.0(H) 11.1 - 14.9 % [facility] RDW SD 51.9(H) 35.7 - 48.1 fL [facility] NRBC abs 0.00 0.00 - 0.01 K/cumm [facility] Blood 03/15/2023 9:40 PM CDT 03/15/2023 10:25 PM CDT Benjamín Mancuso MD LAB BLOOD ORDERABLES nal Result [facility] Department [place] [address] * (ABNORMAL) Basic metabolic panel (03/15/2023 9:40 PM CDT) [facility] Sodium 141 135 - 145 mmol/L [facility] Potassium, pl 3.7 3.3 - 4.9 mmol/L [facility] Chloride 104 97 - 110 mmol/L [facility] CO2 27 22 - 32 mmol/L [facility] Anion gap 10 2 - 15 mmol/L [facility] BUN 6 6 - 25 mg/dL [facility] Creatinine 1.42(H) 0.60 - 1.10 mg/dL [facility] Glucose 83 70 - 199 mg/dL [facility] Comment: Interpretive Data Fasting glucose >/= 126 [...] interpretive data was last revised 2022. Calcium 8.7 8.5 - 10.3 mg/dL [facility] Blood 03/15/2023 9:40 PM CDT 03/15/2023 10:26 PM CDT Benjamín Mancuso MD LAB BLOOD ORDERABLES Fi nal Result Performing Organization Address [facility]/ZIP Co de Phone Number [facility] Department [place] [address] * Magnesium (03/15/2023 9:40 PM CDT) [facility] Magnesium 1.5 1.4 - 2.5 mg/dL [facility] Blood 03/15/2023 9:40 PM CDT 03/15/2023 10:26 PM CDT Estella Ellis MD PhD LAB BLOOD ORDERABL ES Final Result Performing Organization Address City/[facility]/ZIP Co de Phone Number [facility] Department [place] [address] * C. difficile testing Stool (03/15/2023 2:36 PM CDT) Pathologist [facility] Result Negative Negative [facility] Toxin Result Negative Negative [facility] C. diff result Negative, free toxin Negative, free toxin [facility] C. diff interp Negative for toxigenic Clostridioides (Clostridium) difficile. Analysis was performed using a glutamate dehydrogenase antigen detection assay combined with a C. difficile toxin detection assay. [facility] Stool 03/15/2023 2:36 PM CDT 03/15/2023 4:31 PM CDT Benjamín Mancuso MD LAB MICROBIOLOGY - GENE RAL ORDERABLES Final Result Performing Organization Address [facility] de Phone Number [facility] [place] [address] * VRE culture, surveillance Stool (03/15/2023 2:34 PM CDT) Report Final Report: Negative [facility] Stool 03/15/2023 2:34 PM CDT 03/15/2023 6:22 PM CDT Narrative [facility] - 03/17/2023 7:07 PM CDT Testing performed by [facility] ([phone]). us Benjamín Mancuso MD LAB MICROBIOLOGY - GENE RAL ORDERABLES Final Result Performing Organization Address [facility] de Phone Number [facility] [place] [address] * (ABNORMAL) eGFR (03/14/2023 8:00 PM CDT) eGFR 37(L) 90 - 130 mL/min/1. 73 m2 [facility] Comment: Interpretive Data Reference Interval Normal ?>/= [...] interpretive data was last reviewed 2021. Blood 03/14/2023 8:00 PM CDT 03/14/2023 9:00 PM CDT us Benjamín Mancuso MD LAB BLOOD ORDERABLES Fi nal Result [facility] Department [place] [address] * (ABNORMAL) Basic metabolic panel (03/14/2023 8:00 PM CDT) Sodium 140 135 - 145 mmol/L [facility] Potassium, pl 3.7 3.3 - 4.9 mmol/L [facility] Chloride 105 97 - 110 mmol/L [facility] CO2 27 22 - 32 mmol/L [facility] Anion gap 8 2 - 15 mmol/L [facility] BUN 7 6 - 25 mg/dL [facility] Creatinine 1.47(H) 0.60 - 1.10 mg/dL [facility] Glucose 103 70 - 199 mg/dL [facility] Comment: Interpretive Data Fasting glucose >/= 126 [...] classification and Diagnosis of Diabetes Diabetes Care 2022; 46: [id number]. Current interpretive data was last revised 2022. Calcium 8.5 8.5 - 10.3 mg/dL [facility] Blood 03/14/2023 8:00 PM CDT 03/14/2023 9:00 PM CDT us Benjamín Mancuso MD LAB BLOOD ORDERABLES Fi nal Result Performing Organization Address City/[facility]/ZIP Co de Phone Number [facility] Department [place] [address] * Magnesium (03/14/2023 8:00 PM CDT) Pathologist [facility] Magnesium 1.7 1.4 - 2.5 mg/dL [facility] Blood 03/14/2023 8:00 PM CDT 03/14/2023 9:00 PM CDT Estella Ellis MD PhD LAB BLOOD ORDERABL ES Final Result Performing Organization Address [facility] de Phone Number [facility] [place] [address] * ECG 12 lead (03/14/2023 9:38 AM CDT) Ventricular Rate EKG/Min 121 BPM [facility] QRS-Interval (MSEC) 106 ms [facility] QT-Interval (MSEC) 346 ms [facility] QTc 491 ms [facility] R Hayti 25 degrees [facility] T Hayti 197 degrees [facility] Diagnosis Atrial fibrillation with rapid ventricular response Minimal voltage criteria for LVH, may be normal variant ( Darnell product ) ST & T wave abnormality, consider inferolateral ischemia Long QTc When compared with ECG of 09-MAR-2023 11:09, Atrial fibrillation has replaced Sinus rhythm Vent. rate has increased BY ??[address] now depressed in Inferior leads Nonspecific T wave abnormality more evident in Inferior leads T wave inversion improved in ??Anterior leads Confirmed by SERVANDO GARCIA M.D ([id number]) on 03/14/2023 1:04:20 PM [facility] 03/14/2023 9:38 AM CDT 03/14/2023 1:04 PM CDT us Benjamín Mancuso MD ECG ORDERABLES Final R esult Performing Organization Address City/[facility]/ZIP Co de Phone Number [facility] * (ABNORMAL) eGFR (03/13/2023 8:26 PM CDT) eGFR 33(L) 90 - 130 mL/min/1. 73 m2 [facility] Comment: Interpretive Data Reference Interval Normal ?>/= [...] interpretive data was last reviewed 2021. Blood 03/13/2023 8:26 PM CDT 03/13/2023 9:24 PM CDT us Benjamín Mancuso MD LAB BLOOD ORDERABLES Fi nal Result Performing Organization Address City/[facility]/ZIP Co de Phone Number [facility] Department [place] [address] * (ABNORMAL) Basic metabolic panel (03/13/2023 8:26 PM CDT) Sodium 140 135 - 145 mmol/L [facility] Potassium, pl 3.8 3.3 - 4.9 mmol/L [facility] Chloride 105 97 - 110 mmol/L [facility] CO2 26 22 - 32 mmol/L [facility] Anion gap 9 2 - 15 mmol/L [facility] BUN 8 6 - 25 mg/dL [facility] Creatinine 1.62(H) 0.60 - 1.10 mg/dL [facility] Glucose 93 70 - 199 mg/dL [facility] Comment: Interpretive Data Fasting glucose >/= 126 [...] 2022. Calcium 8.8 8.5 - 10.3 mg/dL [facility] Blood 03/13/2023 8:26 PM CDT 03/13/2023 9:24 PM CDT us Benjamín Mancuso MD LAB BLOOD ORDERABLES Fi nal Result [facility] [place] [address] * Magnesium (03/13/2023 8:26 PM CDT) Pathologist [facility] Magnesium 1.7 1.4 - 2.5 mg/dL [facility] Blood 03/13/2023 8:26 PM CDT 03/13/2023 9:24 PM CDT Estella Ellis MD PhD LAB BLOOD ORDERABL ES Final Result [facility] [place] [address] * (ABNORMAL) CBC without differential (03/13/2023 10:43 AM CDT) Pathologist [facility] WBC 3.6(L) 3.8 - 9.9 K/cumm [facility] Hgb 8.2(L) 11.9 - 15.5 g/dL [facility] Hct 26.2(L) 35.6 - 45.5 % [facility] Plt 132(L) 150 - 400 K/cumm [facility] MPV 11.0 9.1 - 12.3 fL [facility] RBC 2.76(L) 3.90 - 5.20 M/cumm [facility] MCV 94.9 81.3 - 96.4 fL [facility] MCH 29.7 27.1 - 33.3 pg [facility] MCHC 31.3(L) 32.3 - 35.7 g/dL [facility] RDW CV 15.2(H) 11.1 - 14.9 % [facility] RDW SD 52.7(H) 35.7 - 48.1 fL [facility] NRBC abs 0.00 0.00 - 0.01 K/cumm [facility] Blood 03/13/2023 10:4 3 AM CDT 03/13/2023 11:31 AM CDT us Benjamín Mancuso MD LAB BLOOD ORDERABLES Fi nal Result [facility] [place] [address] * (ABNORMAL) eGFR (03/12/2023 8:30 PM CDT) Pathologist [facility] eGFR 31(L) 90 - 130 mL/min/1. 73 m2 [facility] Comment: Interpretive Data Reference Interval Normal ?>/= [...] interpretive data was last reviewed 2021. Blood 03/12/2023 8:30 PM CDT 03/12/2023 9:25 PM CDT us Benjamín Mancuso MD LAB BLOOD ORDERABLES Fi nal Result [facility] Department [place] [address] * (ABNORMAL) Basic metabolic panel (03/12/2023 8:30 PM CDT) Sodium 139 135 - 145 mmol/L [facility] Potassium, pl 4.1 3.3 - 4.9 mmol/L [facility] Chloride 103 97 - 110 mmol/L [facility] CO2 27 22 - 32 mmol/L [facility] Anion gap 9 2 - 15 mmol/L [facility] BUN 9 6 - 25 mg/dL [facility] Creatinine 1.69(H) 0.60 - 1.10 mg/dL [facility] Glucose 93 70 - 199 mg/dL [facility] Comment: Interpretive Data Fasting glucose >/= 126 [...] 2022. Calcium 9.2 8.5 - 10.3 mg/dL [facility] Blood 03/12/2023 8:30 PM CDT 03/12/2023 9:25 PM CDT us Benjamín Mancuso MD LAB BLOOD ORDERABLES Fi nal Result Performing Organization Address City/[facility]/ZIP Co de Phone Number [facility] [place] [address] * Magnesium (03/12/2023 8:30 PM CDT) Magnesium 1.8 1.4 - 2.5 mg/dL [facility] Blood 03/12/2023 8:30 PM CDT 03/12/2023 9:25 PM CDT us Estella Ellis MD PhD LAB BLOOD ORDERABL ES Final Result Performing Organization Address City/[facility]/ZIP Co de Phone Number [facility] Department [place] [address] * Urinalysis reflex to microscopic (03/12/2023 2:36 AM CDT) Color, ur Straw Yellow [facility] Clarity, ur Clear Clear [facility] Specific gravity, ur 1.013 1.003 - 1.030 [facility] pH, urine 7.0 [facility] Comment: Interpretive Data ? Urine pH is affected by diet, medications, systemic acid-base disturbances, and renal tubular function. ??pH may affect urinary stone formation. ??For example, urine pH below 6.0 may help reduce the tendency for calcium phosphate stones and pH greater than 6.0 may reduce the tendency for uric acid stone formation. Source: [facility] [employer] Current Interpretive Data was last revised on 2017 Protein, ur ql Negative Negative [facility] Glucose, ur ql Negative Negative [facility] Ketones, ur Negative Negative [facility] Bilirubin, ur Negative Negative [facility] Blood, ur Negative Negative [facility] Urobilinogen, ur <2.0 <2.0 mg/dL [facility] Nitrite, ur Negative Negative [facility] Leukocyte esterase, ur Negative Negative [facility] UA reflex comment Reflex conditions for microscopic UA not met. [facility] Urine 03/12/2023 2:36 AM CDT 03/12/2023 3:18 AM CDT us Benjamín Mancuso MD LAB URINE ORDERABLES Fi nal Result Performing Organization Address City/State/[facility] Co de Phone Number [facility] Department [place] [address] * (ABNORMAL) eGFR (03/11/2023 9:50 PM CDT) eGFR 27(L) 90 - 130 mL/min/1. 73 m2 [facility] Comment: Interpretive Data Reference Interval Normal ?>/= [...] interpretive data was last reviewed 2021. Blood 03/11/2023 9:50 PM CDT 03/11/2023 10:28 PM CDT us Benjamín Mancuso MD LAB BLOOD ORDERABLES Fi nal Result [facility] Department [place] [address] * (ABNORMAL) Basic metabolic panel (03/11/2023 9:50 PM CDT) [facility] Signature Sodium 139 135 - 145 mmol/L [facility] Potassium, pl 4.3 3.3 - 4.9 mmol/L [facility] Chloride 104 97 - 110 mmol/L [facility] CO2 25 22 - 32 mmol/L [facility] Anion gap 10 2 - 15 mmol/L [facility] BUN 10 6 - 25 mg/dL [facility] Creatinine 1.88(H) 0.60 - 1.10 mg/dL [facility] Glucose 82 70 - 199 mg/dL [facility] Comment: Interpretive Data Fasting glucose >/= 126 [...] interpretive data was last revised 2022. Calcium 9.0 8.5 - 10.3 mg/dL [facility] Blood 03/11/2023 9:50 PM CDT 03/11/2023 10:28 PM CDT us Benjamín Mancuso MD LAB BLOOD ORDERABLES Fi nal Result Performing Organization Address City/[facility]/ZIP Co de Phone Number [facility] Department [place] [address] * Magnesium (03/11/2023 9:50 PM CDT) Magnesium 1.9 1.4 - 2.5 mg/dL [facility] Blood 03/11/2023 9:50 PM CDT 03/11/2023 10:28 PM CDT us Estella Ellis MD PhD LAB BLOOD ORDERABL ES Final Result Performing Organization Address [facility] de Phone Number [facility] Department [place] [address] * XR Abdomen Ap 1 Vw (03/11/2023 4:16 PM CDT) Anatomical Region Laterality Modality Body, Abdomen N/A Computed Radiogr aphy 03/11/2023 4:39 PM CDT Impressions 03/11/2023 4:46 PM CDT A single view of the abdomen is submitted for evaluation. 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 ??Blunting of the costophrenic angles bilaterally, which may be due to small pleural effusions. ??Retrocardiac opacity, likely atelectasis. ??Degenerative changes of the spine and right hip. Cholecystectomy clips. ??Surgical clips overlying the left hemiabdomen. ??Vascular calcifications projecting over the left upper quadrant. Bowel gas pattern in the imaged portion of the abdomen is within normal limits. Dictated by: Zachary Russell M.D. The radiology attending physician has personally reviewed this study, and had reviewed and/or edited this written report and agrees with it. Electronically signed by: Leno Burdick M.D. Narrative 03/11/2023 4:46 PM CDT EXAMINATION: Abdomen, one view. HISTORY: Abdominal pain. COMPARISON: None Procedure Note Leno Burdick MD - 03/11/2023 EXAMINATION: Abdomen, one view. HISTORY: Abdominal pain. COMPARISON: None IMPRESSION: A single view of the abdomen is submitted for evaluation. 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 Blunting of the costophrenic angles bilaterally, which may be due to small pleural effusions. Retrocardiac opacity, likely atelectasis. Degenerative changes of the spine and right hip. Cholecystectomy clips. Surgical clips overlying the left hemiabdomen. Vascular calcifications projecting over the left upper quadrant. Bowel gas pattern in the imaged portion of the abdomen is within normal limits. Dictated by: Zachary Russell M.D. The radiology attending physician has personally reviewed this study, and had reviewed and/or edited this written report and agrees with it. Electronically signed by: Leno Burdick M.D. Benjamín Mancuso MD IMG XR PROCEDURES Final Result * (ABNORMAL) Differential, auto (03/11/2023 10:51 AM CDT) Neutrophil abs 2.4 1.7 - 6.5 K/cumm [facility] Imm gran abs 0.0 0.0 - 0.1 K/cumm [facility] Lymphocyte abs 1.5 0.8 - 3.3 K/cumm [facility] Monocyte abs 0.2 0.2 - 0.8 K/cumm [facility] Eosinophil abs 0.6(H) 0.0 - 0.5 K/cumm [facility] Basophil abs 0.1 0.0 - 0.1 K/cumm [facility] Neutrophil pct 50.2 % [facility] Comment: Confirmed by smear review Interpretive Data Percent cell count reference ranges are not reported, since discordance with absolute values may lead to misinterpretation of CBC data. Current Interpretive Data was last revised on 2017. Imm gran pct 0.4 % [facility] Comment: Interpretive Data Percent cell count reference ranges are not reported, since discordance with absolute values may lead to misinterpretation of CBC data. Current Interpretive Data was last revised on 2017. Lymphocyte pct 31.7 % [facility] Comment: Interpretive Data Percent cell count reference ranges are not reported, since discordance with absolute values may lead to misinterpretation of CBC data. Current Interpretive Data was last revised on 2017. Monocyte pct 3.9 % [facility] Comment: Interpretive Data Percent cell count reference ranges are not reported, since discordance with absolute values may lead to misinterpretation of CBC data. Current Interpretive Data was last revised on 2017. Eosinophil pct 12.4 % [facility] Comment: Interpretive Data Percent cell count reference ranges are not reported, since discordance with absolute values may lead to misinterpretation of CBC data. Current Interpretive Data was last revised on 2017. Basophil pct 1.4 % [facility] Comment: Interpretive Data Percent cell count reference ranges are not reported, since discordance with absolute values may lead to misinterpretation of CBC data. Current Interpretive Data was last revised on 2017. Blood 03/11/2023 10:5 1 AM CDT 03/11/2023 11:25 AM CDT us Benjamín Mancuso MD LAB BLOOD ORDERABLES nal Result [facility] Department [place] [address] * (ABNORMAL) CBC with auto differential (03/11/2023 10:51 AM CDT) WBC 4.8 3.8 - 9.9 K/cumm [facility] Hgb 9.8(L) 11.9 - 15.5 g/dL [facility] Hct 31.0(L) 35.6 - 45.5 % [facility] Plt 175 150 - 400 K/cumm [facility] MPV 13.3(H) 9.1 - 12.3 fL [facility] RBC 3.26(L) 3.90 - 5.20 M/cumm [facility] MCV 95.1 81.3 - 96.4 fL [facility] MCH 30.1 27.1 - 33.3 pg [facility] MCHC 31.6(L) 32.3 - 35.7 g/dL [facility] RDW CV 14.9 11.1 - 14.9 % [facility] RDW SD 51.9(H) 35.7 - 48.1 fL [facility] NRBC abs 0.00 0.00 - 0.01 K/cumm [facility] Blood 03/11/2023 10:5 1 AM CDT 03/11/2023 11:25 AM CDT Benjamín Mancuso MD LAB BLOOD ORDERABLES Fi nal Result Performing Organization Address [facility] de Phone Number [facility] [place] [address] * (ABNORMAL) Cortisol (03/11/2023 9:11 AM CDT) [facility] Cortisol 21.5(H) 4.8 - 19.5 mcg/dL [facility] Comment: Interpretive Data: Morning hours 6-10 a.m. ??4.8 - 19.5 mcg/dL Afternoon hours 4-8 p.m. ??2.68 - 10.5 mcg/dL This analyte undergoes marked diurnal variation. Current interpretive data was last revised 21. Blood 03/11/2023 9:11 AM CDT 03/11/2023 11:25 AM CDT Benjamín Mancuso MD LAB BLOOD ORDERABLES Fi nal Result Performing Organization Address [facility] Co de Phone Number [facility] Department [place] [address] * (ABNORMAL) eGFR (03/10/2023 8:13 PM CDT) eGFR 27(L) 90 - 130 mL/min/1. 73 m2 [facility] Comment: Interpretive Data Reference Interval Normal ?>/= [...] interpretive data was last reviewed 2021. Blood 03/10/2023 8:13 PM CDT 03/10/2023 8:51 PM CDT us Benjamín Mancuso MD LAB BLOOD ORDERABLES Fi nal Result [facility] Department [place] [address] * Magnesium (03/10/2023 8:13 PM CDT) Magnesium 1.8 1.4 - 2.5 mg/dL [facility] Blood 03/10/2023 8:13 PM CDT 03/10/2023 8:51 PM CDT us Estella Ellis MD PhD LAB BLOOD ORDERABL ES Final Result [facility] Department [place] [address] * (ABNORMAL) Basic metabolic panel (03/10/2023 8:13 PM CDT) [facility] Sodium 138 135 - 145 mmol/L [facility] Potassium, pl 4.4 3.3 - 4.9 mmol/L [facility] Chloride 102 97 - 110 mmol/L [facility] CO2 27 22 - 32 mmol/L [facility] Anion gap 9 2 - 15 mmol/L [facility] BUN 9 6 - 25 mg/dL [facility] Creatinine 1.89(H) 0.60 - 1.10 mg/dL [facility] Glucose 99 70 - 199 mg/dL [facility] Comment: Interpretive Data Fasting glucose >/= 126 [...] interpretive data was last revised 2022. Calcium 9.1 8.5 - 10.3 mg/dL [facility] Blood 03/10/2023 8:13 PM CDT 03/10/2023 8:51 PM CDT us Benjamín Mancuso MD LAB BLOOD ORDERABLES Fi nal Result Performing Organization Address [facility]/ZIP Co de Phone Number [facility] Department [place] [address] * (ABNORMAL) eGFR (03/10/2023 8:07 AM CDT) Pathologist [facility] eGFR 28(L) 90 - 130 mL/min/1. 73 m2 [facility] Comment: Interpretive Data Reference Interval Normal ?>/= [...] interpretive data was last reviewed 2021. Blood 03/10/2023 8:07 AM CDT 03/10/2023 8:55 AM CDT us Benjamín Mancuso MD LAB BLOOD ORDERABLES Fi nal Result [facility] Department [place] [address] * (ABNORMAL) Basic metabolic panel (03/10/2023 8:07 AM CDT) [facility] Sodium 139 135 - 145 mmol/L [facility] Potassium, pl 4.4 3.3 - 4.9 mmol/L [facility] Chloride 103 97 - 110 mmol/L [facility] CO2 28 22 - 32 mmol/L [facility] Anion gap 8 2 - 15 mmol/L [facility] BUN 8 6 - 25 mg/dL [facility] Creatinine 1.86(H) 0.60 - 1.10 mg/dL [facility] Glucose 87 70 - 199 mg/dL [facility] Comment: Interpretive Data Fasting glucose >/= 126 [...] 2022. Calcium 9.2 8.5 - 10.3 mg/dL [facility] Blood 03/10/2023 8:07 AM CDT 03/10/2023 8:55 AM CDT us Benjamín Mancuso MD LAB BLOOD ORDERABLES Fi nal Result [facility] Department [place] [address] * (ABNORMAL) Cortisol, saliva (03/09/2023 11:07 PM CDT) Cortisol, Saliva Not Reported [facility] Cortisol, AM, saliva Not Reported [facility] Cortisol, PM, saliva Not Reported [facility] Cortisol, mid, saliva 415(H) <100 ng/dL [facility] Comment: ADDITIONAL INFORMATION This test was developed and its performance characteristics determined by [facility] in a manner consistent with CLIA requirements. This test has not been cleared or approved by the U.S. Food and Drug Administration. Test Performed by: [facility] [address] [place] [address] Stamping Bench Die Maker: Leno Nogueira M.D. Ph.D.; IA# [id number] Saliva 03/09/2023 11:0 7 PM CDT 03/10/2023 2:27 AM CDT us Benjamín Mancuso MD LAB BODY FLUIDS AND STO OLS ORDERABLES Final Result Performing Organization Address City/State/[facility] Co de Phone Number [facility] [place] [address] * (ABNORMAL) eGFR (03/09/2023 8:13 PM CDT) eGFR 27(L) 90 - 130 mL/min/1. 73 m2 [facility] Comment: Interpretive Data Reference Interval Normal ?>/= [...] interpretive data was last reviewed 2021. Blood 03/09/2023 8:13 PM CDT 03/09/2023 9:31 PM CDT us Benjamín Mancuso MD LAB BLOOD ORDERABLES Fi nal Result [facility] Department [place] [address] * Magnesium (03/09/2023 8:13 PM CDT) Pathologist [facility] Magnesium 1.9 1.4 - 2.5 mg/dL [facility] Blood 03/09/2023 8:13 PM CDT 03/09/2023 9:31 PM CDT Estella Ellis MD PhD LAB BLOOD ORDERABL ES Final Result Performing Organization Address [facility] Co de Phone Number [facility] [place] [address] * (ABNORMAL) Basic metabolic panel (03/09/2023 8:13 PM CDT) Sodium 138 135 - 145 mmol/L [facility] Potassium, pl 4.4 3.3 - 4.9 mmol/L [facility] Chloride 103 97 - 110 mmol/L [facility] CO2 27 22 - 32 mmol/L [facility] Anion gap 8 2 - 15 mmol/L [facility] BUN 8 6 - 25 mg/dL [facility] Creatinine 1.90(H) 0.60 - 1.10 mg/dL [facility] Glucose 86 70 - 199 mg/dL [facility] Comment: Interpretive Data Fasting glucose >/= 126 [...] interpretive data was last revised 2022. Calcium 9.1 8.5 - 10.3 mg/dL [facility] Blood 03/09/2023 8:13 PM CDT 03/09/2023 9:31 PM CDT us Benjamín Mancuso MD LAB BLOOD ORDERABLES Fi nal Result [facility] [place] [address] * Differential, auto (03/09/2023 1:52 PM CDT) Neutrophil abs 1.7 1.7 - 6.5 K/cumm [facility] Imm gran abs 0.0 0.0 - 0.1 K/cumm [facility] Lymphocyte abs 0.9 0.8 - 3.3 K/cumm [facility] Monocyte abs 0.3 0.2 - 0.8 K/cumm [facility] Eosinophil abs 0.4 0.0 - 0.5 K/cumm [facility] Basophil abs 0.0 0.0 - 0.1 K/cumm [facility] Neutrophil pct 51.6 % [facility] Comment: Interpretive Data Percent cell count reference ranges are not reported, since discordance with absolute values may lead to misinterpretation of CBC data. Current Interpretive Data was last revised on 2017. Imm gran pct 0.3 % [facility] Comment: Interpretive Data Percent cell count reference ranges are not reported, since discordance with absolute values may lead to misinterpretation of CBC data. Current Interpretive Data was last revised on 2017. Lymphocyte pct 26.4 % [facility] Comment: Interpretive Data Percent cell count reference ranges are not reported, since discordance with absolute values may lead to misinterpretation of CBC data. Current Interpretive Data was last revised on 2017. Monocyte pct 8.9 % [facility] Comment: Interpretive Data Percent cell count reference ranges are not reported, since discordance with absolute values may lead to misinterpretation of CBC data. Current Interpretive Data was last revised on 2017. Eosinophil pct 11.6 % [facility] Comment: Interpretive Data Percent cell count reference ranges are not reported, since discordance with absolute values may lead to misinterpretation of CBC data. Current Interpretive Data was last revised on 2017. Basophil pct 1.2 % [facility] Comment: Interpretive Data Percent cell count reference ranges are not reported, since discordance with absolute values may lead to misinterpretation of CBC data. Current Interpretive Data was last revised on 2017. Blood 03/09/2023 1:52 PM CDT 03/09/2023 2:17 PM CDT us Benjamín Mancuso MD LAB BLOOD ORDERABLES Fi nal Result [facility] [place] [address] * (ABNORMAL) CBC with auto differential (03/09/2023 1:52 PM CDT) WBC 3.4(L) 3.8 - 9.9 K/cumm [facility] Hgb 7.5(L) 11.9 - 15.5 g/dL [facility] Hct 24.1(L) 35.6 - 45.5 % [facility] Plt 175 150 - 400 K/cumm [facility] MPV 11.4 9.1 - 12.3 fL [facility] RBC 2.52(L) 3.90 - 5.20 M/cumm [facility] MCV 95.6 81.3 - 96.4 fL [facility] MCH 29.8 27.1 - 33.3 pg [facility] MCHC 31.1(L) 32.3 - 35.7 g/dL [facility] RDW CV 15.1(H) 11.1 - 14.9 % [facility] RDW SD 53.1(H) 35.7 - 48.1 fL [facility] NRBC abs 0.00 0.00 - 0.01 K/cumm [facility] Blood 03/09/2023 1:52 PM CDT 03/09/2023 2:17 PM CDT us Benjamín Mancuso MD LAB BLOOD ORDERABLES Fi nal Result Performing Organization Address [facility] Co de Phone Number [facility] [place] [address] * ECG 12 lead (03/09/2023 11:09 AM CDT) Ventricular Rate EKG/Min 63 BPM [facility] Atrial Rate 63 BPM [facility] NE-Interval (MSEC) 164 ms [facility] QRS-Interval (MSEC) 120 ms [facility] QT-Interval (MSEC) 490 ms [facility] QTc 501 ms [facility] P [place]ti 30 degrees [facility] R [place] 24 degrees [facility] T [place]ti 152 degrees [facility] Diagnosis Normal sinus rhythm Non-specific intra-ventricula r conduction delay Minimal voltage criteria for LVH, may be normal variant ( [place] product ) ST & T wave abnormality, consider anterolateral ischemia Abnormal ECG No previous ECGs available Confirmed by EDWAR RODRIGUEZ M.D ([id number]) on 03/10/2023 3:01:24 PM [facility] 03/09/2023 11:0 9 AM CDT 03/10/2023 3:01 PM CDT us Benjamín Mancuso MD ECG ORDERABLES Final R esult Performing Organization Address [facility] de Phone Number [facility] * (ABNORMAL) eGFR (03/09/2023 8:22 AM CDT) Pathologist [facility] eGFR 26(L) 90 - 130 mL/min/1. 73 m2 [facility] Comment: Interpretive Data Reference Interval Normal ?>/= [...] interpretive data was last reviewed 2021. Blood 03/09/2023 8:22 AM CDT 03/09/2023 8:50 AM CDT Benjamín Mancuso MD LAB BLOOD ORDERABLES Fi nal Result [facility] Department [place] [address] * (ABNORMAL) Basic metabolic panel (03/09/2023 8:22 AM CDT) Sodium 140 135 - 145 mmol/L [facility] Potassium, pl 4.4 3.3 - 4.9 mmol/L [facility] Chloride 104 97 - 110 mmol/L [facility] CO2 29 22 - 32 mmol/L [facility] Anion gap 7 2 - 15 mmol/L [facility] BUN 8 6 - 25 mg/dL [facility] Creatinine 1.99(H) 0.60 - 1.10 mg/dL [facility] Glucose 89 70 - 199 mg/dL [facility] Comment: Interpretive Data Fasting glucose >/= 126 [...] classification and Diagnosis of Diabetes Diabetes Care 2022; 46: S19-S40. Current interpretive data was last revised 2022. Calcium 8.9 8.5 - 10.3 mg/dL [facility] Blood 03/09/2023 8:22 AM CDT 03/09/2023 8:50 AM CDT us Benjamín Mancuso MD LAB BLOOD ORDERABLES Fi nal Result [facility] [place] [address] * (ABNORMAL) eGFR (03/08/2023 8:29 PM CDT) eGFR 26(L) 90 - 130 mL/min/1. 73 m2 [facility] Comment: Interpretive Data Reference Interval Normal ?>/= [...] interpretive data was last reviewed 2021. Blood 03/08/2023 8:29 PM CDT 03/08/2023 9:25 PM CDT us Benjamín Mancuso MD LAB BLOOD ORDERABLES Fi nal Result Performing Organization Address City/[facility]/ZIP Co de Phone Number [facility] [place] [address] * Magnesium (03/08/2023 8:29 PM CDT) Magnesium 1.9 1.4 - 2.5 mg/dL [facility] Blood 03/08/2023 8:29 PM CDT 03/08/2023 9:25 PM CDT Estella Ellis MD PhD LAB BLOOD ORDERABL ES Final Result Performing Organization Address [facility] Co de Phone Number [facility] [place] [address] * (ABNORMAL) Basic metabolic panel (03/08/2023 8:29 PM CDT) Sodium 138 135 - 145 mmol/L [facility] Potassium, pl 4.2 3.3 - 4.9 mmol/L [facility] Chloride 103 97 - 110 mmol/L [facility] CO2 27 22 - 32 mmol/L [facility] Anion gap 8 2 - 15 mmol/L [facility] BUN 8 6 - 25 mg/dL [facility] Creatinine 1.97(H) 0.60 - 1.10 mg/dL [facility] Glucose 84 70 - 199 mg/dL [facility] Comment: Interpretive Data Fasting glucose >/= 126 [...] classification and Diagnosis of Diabetes Diabetes Care 2022; 46: [id number]. Current interpretive data was last revised 2022. Calcium 9.1 8.5 - 10.3 mg/dL [facility] Blood 03/08/2023 8:29 PM CDT 03/08/2023 9:25 PM CDT us Benjamín Mancuso MD LAB BLOOD ORDERABLES Fi nal Result [facility] [place] [address] * (ABNORMAL) eGFR (03/08/2023 8:58 AM CDT) eGFR 30(L) 90 - 130 mL/min/1. 73 m2 [facility] Comment: Interpretive Data Reference Interval Normal ?>/= [...] interpretive data was last reviewed 2021. Blood 03/08/2023 8:58 AM CDT 03/08/2023 9:29 AM CDT Benjamín Mancuso MD LAB BLOOD ORDERABLES Fi nal Result Performing Organization Address City/[facility]/ZIP Co de Phone Number [facility] [place] [address] * (ABNORMAL) Basic metabolic panel (03/08/2023 8:58 AM CDT) [facility] Sodium 141 135 - 145 mmol/L [facility] Potassium, pl 4.1 3.3 - 4.9 mmol/L [facility] Chloride 106 97 - 110 mmol/L [facility] CO2 28 22 - 32 mmol/L [facility] Anion gap 7 2 - 15 mmol/L [facility] BUN 8 6 - 25 mg/dL [facility] Creatinine 1.74(H) 0.60 - 1.10 mg/dL [facility] Glucose 85 70 - 199 mg/dL [facility] Comment: Interpretive Data Fasting glucose >/= 126 [...] interpretive data was last revised 2022. Calcium 8.2(L) 8.5 - 10.3 mg/dL [facility] Blood 03/08/2023 8:58 AM CDT 03/08/2023 9:17 AM CDT Benjamín Mancuso MD LAB BLOOD ORDERABLES Fi nal Result Performing Organization Address City/[facility]/ZIP Co de Phone Number [facility] [place] [address] * MRI Brain WO Contrast (03/07/2023 10:57 PM CDT) Anatomical Region Laterality Modality Head and Neck N/A Magnetic Resonan ce 03/08/2023 9:26 AM CDT Impressions 03/08/2023 12:54 PM CDT 1. ??No acute intracranial abnormality. 2. ??Moderate global cerebral atrophy, white matter disease, chronic lacunar infarcts, and microhemorrhages suggestive of cerebral small vessel ischemic disease. Dictated by: Harpreet Vasquez MD The radiology attending physician has personally reviewed this study, and had reviewed and/or edited this written report and agrees with it. Electronically signed by: Eh Du M.D. Narrative 03/08/2023 12:54 PM CDT EXAMINATION: Magnetic resonance imaging (MRI) of the brain and brainstem without contrast HISTORY: 77 years-old Female with Syncope, recurrent. TECHNIQUE: Multiplanar multi-weighted MRI of the brain and brainstem was performed without intravenous contrast using the general brain protocol. COMPARISON: None Available. FINDINGS: There is a T1 hyperintense lesion in the left frontoparietal calvarium, likely representing a small hemangioma. The superior sagittal sinus demonstrates normal venous flow. ??There is expansion of the subarachnoid spaces along the frontal lobes. ??The corpus callosum is normal in shape and signal intensity. The posterior fossa is unremarkable. The pituitary and sella are normal. The brainstem and craniocervical junction are unremarkable. There is a moderate burden of T2/FLAIR white matter hyperintensities, largely within the periventricular and subcortical white matter in a nonspecific pattern. There is moderate parenchymal volume loss. There is a chronic lacunar infarct in the right caudate. ??In the left inferior artis, an apparent area of DWI hyperintensity is favored to represent artifact given absence of definite correlate on other sequences and adjacent artifact. Diffusion weighted images otherwise reveal no hyperintensities to suggest acute cerebral infarction. There are foci of susceptibility in the left frontal lobe, left basal ganglia, and right caudate, likely suggestive of prior microhemorrhages. The ventricles are normal in size and position without evidence of hydrocephalus. The paranasal sinuses are normal. The visualized portions of the mastoids are unremarkable. Normal flow voids are demonstrated in the carotid arteries and basilar artery. Procedure Note Eh uD MD - 03/08/2023 EXAMINATION: Magnetic resonance imaging (MRI) of the brain and brainstem without contrast HISTORY: 77 years-old Female with Syncope, recurrent. TECHNIQUE: Multiplanar multi-weighted MRI of the brain and brainstem was performed without intravenous contrast using the general brain protocol. COMPARISON: None Available. FINDINGS: There is a T1 hyperintense lesion in the left frontoparietal calvarium, likely representing a small hemangioma. The superior sagittal sinus demonstrates normal venous flow. There is expansion of the subarachnoid spaces along the frontal lobes. The corpus callosum is normal in shape and signal intensity. The posterior fossa is unremarkable. The pituitary and sella are normal. The brainstem and craniocervical junction are unremarkable. There is a moderate burden of T2/FLAIR white matter hyperintensities, largely within the periventricular and subcortical white matter in a nonspecific pattern. There is moderate parenchymal volume loss. There is a chronic lacunar infarct in the right caudate. In the left inferior artis, an apparent area of DWI hyperintensity is favored to represent artifact given absence of definite correlate on other sequences and adjacent artifact. Diffusion weighted images otherwise reveal no hyperintensities to suggest acute cerebral infarction. There are foci of susceptibility in the left frontal lobe, left basal ganglia, and right caudate, likely suggestive of prior microhemorrhages. The ventricles are normal in size and position without evidence of hydrocephalus. The paranasal sinuses are normal. The visualized portions of the mastoids are unremarkable. Normal flow voids are demonstrated in the carotid arteries and basilar artery. IMPRESSION: 1. No acute intracranial abnormality. 2. Moderate global cerebral atrophy, white matter disease, chronic lacunar infarcts, and microhemorrhages suggestive of cerebral small vessel ischemic disease. Dictated by: Harpreet Vasquez MD The radiology attending physician has personally reviewed this study, and had reviewed and/or edited this written report and agrees with it. Electronically signed by: Eh Du M.D. Benjamín Mancuso MD IM MRI PROCEDURES Caitlyn l Result * (ABNORMAL) eGFR (03/07/2023 8:50 PM CDT) eGFR 31(L) 90 - 130 mL/min/1. 73 m2 [facility] Comment: Interpretive Data Reference Interval Normal ?>/= [...] interpretive data was last reviewed 2021. Blood 03/07/2023 8:50 PM CDT 03/07/2023 9:54 PM CDT us Benjamín Mancuso MD LAB BLOOD ORDERABLES Fi nal Result [facility] [place] [address] * Magnesium (03/07/2023 8:50 PM CDT) Magnesium 1.9 1.4 - 2.5 mg/dL [facility] Blood 03/07/2023 8:50 PM CDT 03/07/2023 9:54 PM CDT Estella Ellis MD PhD LAB BLOOD ORDERABL ES Final Result [facility] [place] [address] * (ABNORMAL) Basic metabolic panel (03/07/2023 8:50 PM CDT) Sodium 139 135 - 145 mmol/L [facility] Potassium, pl 4.3 3.3 - 4.9 mmol/L [facility] Chloride 102 97 - 110 mmol/L [facility] CO2 29 22 - 32 mmol/L [facility] Anion gap 8 2 - 15 mmol/L [facility] BUN 8 6 - 25 mg/dL [facility] Creatinine 1.70(H) 0.60 - 1.10 mg/dL [facility] Glucose 97 70 - 199 mg/dL [facility] Comment: Interpretive Data Fasting glucose >/= 126 [...] 2022. Calcium 9.2 8.5 - 10.3 mg/dL [facility] Blood 03/07/2023 8:50 PM CDT 03/07/2023 9:54 PM CDT us Benjamín Mancuso MD LAB BLOOD ORDERABLES Fi nal Result Performing Organization Address City/[facility]/ZIP Co de Phone Number [facility] [place] [address] * (ABNORMAL) eGFR (03/07/2023 10:29 AM CDT) eGFR 30(L) 90 - 130 mL/min/1. 73 m2 [facility] Comment: Interpretive Data Reference Interval Normal ?>/= [...] interpretive data was last reviewed 2021. Blood 03/07/2023 10:2 9 AM CDT 03/07/2023 11:21 AM CDT us Benjamín Mancuso MD LAB BLOOD ORDERABLES Fi nal Result Performing Organization Address City/State/[facility] Co de Phone Number [facility] Department [place] [address] * (ABNORMAL) Basic metabolic panel (03/07/2023 10:29 AM CDT) Pathologist [facility] Sodium 139 135 - 145 mmol/L [facility] Potassium, pl 4.4 3.3 - 4.9 mmol/L [facility] Chloride 103 97 - 110 mmol/L [facility] CO2 29 22 - 32 mmol/L [facility] Anion gap 7 2 - 15 mmol/L [facility] BUN 9 6 - 25 mg/dL [facility] Creatinine 1.76(H) 0.60 - 1.10 mg/dL [facility] Glucose 92 70 - 199 mg/dL [facility] Comment: Interpretive Data Fasting glucose >/= 126 [...] interpretive data was last revised 2022. Calcium 9.1 8.5 - 10.3 mg/dL [facility] Blood 03/07/2023 10:2 9 AM CDT 03/07/2023 11:21 AM CDT Benjamín Mancuso MD LAB BLOOD ORDERABLES nal Result [facility] [place] [address] * (ABNORMAL) eGFR (03/06/2023 9:27 PM CDT) eGFR 28(L) 90 - 130 mL/min/1. 73 m2 [facility] Comment: Interpretive Data Reference Interval Normal ?>/= [...] interpretive data was last reviewed 2021. Blood 03/06/2023 9:27 PM CDT 03/06/2023 10:29 PM CDT us Benjamín Mancuso MD LAB BLOOD ORDERABLES Fi nal Result Performing Organization Address City/[facility]/ZIP Co de Phone Number [facility] [place] [address] * Magnesium (03/06/2023 9:27 PM CDT) Pathologist [facility] Magnesium 2.0 1.4 - 2.5 mg/dL [facility] Blood 03/06/2023 9:27 PM CDT 03/06/2023 10:29 PM CDT us Estella Ellis MD PhD LAB BLOOD ORDERABL ES Final Result Performing Organization Address City/[facility]/ZIP Co de Phone Number [facility] Department [place] [address] * (ABNORMAL) Basic metabolic panel (03/06/2023 9:27 PM CDT) Sodium 141 135 - 145 mmol/L [facility] Potassium, pl 4.1 3.3 - 4.9 mmol/L [facility] Chloride 105 97 - 110 mmol/L [facility] CO2 30 22 - 32 mmol/L [facility] Anion gap 6 2 - 15 mmol/L [facility] BUN 10 6 - 25 mg/dL [facility] Creatinine 1.82(H) 0.60 - 1.10 mg/dL [facility] Glucose 96 70 - 199 mg/dL [facility] Comment: Interpretive Data Fasting glucose >/= 126 [...] interpretive data was last revised 2022. Calcium 9.5 8.5 - 10.3 mg/dL [facility] Blood 03/06/2023 9:27 PM CDT 03/06/2023 10:29 PM CDT Benjamín Mancuso MD LAB BLOOD ORDERABLES Fi nal Result Performing Organization Address City/[facility]/ZIP Co de Phone Number [facility] Department [place] [address] * (ABNORMAL) Urinalysis, microscopic only (03/06/2023 3:41 PM CDT) Pathologist [facility] WBC, ur 0-5 0 - 5 /HPF [facility] RBC, ur 0-2 0 - 2 /HPF [facility] Epithelial cells, squamous, ur 1-5 0 - 5 /HPF [facility] Bacteria, ur Trace(A) [facility] Mucous, ur Present(A) [facility] Urine 03/06/2023 3:41 PM CDT 03/06/2023 4:19 PM CDT Benjamín Mancuso MD LAB URINE ORDERABLES Fi nal Result Performing Organization Address [facility] Co de Phone Number [facility] Department [place] [address] * (ABNORMAL) Urinalysis reflex to microscopic (03/06/2023 3:41 PM CDT) Color, ur Straw Yellow [facility] Clarity, ur Clear Clear [facility] Specific gravity, ur 1.012 1.003 - 1.030 [facility] pH, urine 6.0 [facility] Protein, ur ql Negative Negative [facility] Glucose, ur ql Negative Negative [facility] Ketones, ur Negative Negative [facility] Bilirubin, ur Negative Negative [facility] Blood, ur Negative Negative [facility] Urobilinogen, ur <2.0 <2.0 mg/dL [facility] Nitrite, ur Negative Negative [facility] Leukocyte esterase, ur 1+(A) Negative [facility] UA reflex comment Reflex to microscopic UA will be performed. [facility] Urine 03/06/2023 3:41 PM CDT 03/06/2023 4:19 PM CDT Narrative [facility] - 03/06/2023 4:39 PM CDT ?? Urine pH is affected by diet, medications, systemic acid-base disturbances, and renal tubular function. ??pH may affect urinary stone formation. ??For example, urine pH below 6.0 may help reduce the tendency for calcium phosphate stones and pH greater than 6.0 may reduce the tendency for uric acid stone formation. Source: [employer]. Last revised 06-26-2017 Urine pH is affected by diet, medications, systemic acid-base disturbances, and renal tubular function. ??pH may affect urinary stone formation. ??For example, urine pH below 6.0 may help reduce the tendency for calcium phosphate stones and pH greater than 6.0 may reduce the tendency for uric acid stone formation. Source: [employer]. Last revised 06-26-2017 us Benjamín Mancuso MD LAB URINE ORDERABLES Fi nal Result [facility] [place] [address] * Creatinine, urine, random (03/06/2023 3:41 PM CDT) Creatinine Ur 81.4 mg/dL [facility] Comment: Interpretive Data No reference range established. Current interpretive data was last revised 2018. Urine 03/06/2023 3:41 PM CDT 03/06/2023 4:25 PM CDT Benjamín Mancuso MD LAB URINE ORDERABLES Fi nal Result Performing Organization Address [facility] de Phone Number [facility] [place] [address] * Sodium, urine, random (03/06/2023 3:41 PM CDT) Sodium, ur 70 mmol/L [facility] Comment: Interpretive Data No reference range established. Current interpretive data was last revised 2018. Urine (Urine, Clean Catch) 03/06/2023 3:41 PM CDT 03/06/2023 4:25 PM CDT Benjamín Mancuso MD LAB URINE ORDERABLES Fi nal Result Performing Organization Address [facility] de Phone Number [facility] [place] [address] * (ABNORMAL) eGFR (03/06/2023 8:39 AM CDT) eGFR 25(L) 90 - 130 mL/min/1. 73 m2 [facility] Comment: Interpretive Data Reference Interval Normal ?>/= [...] interpretive data was last reviewed 2021. Blood 03/06/2023 8:39 AM CDT 03/06/2023 9:43 AM CDT us Benjamín Mancuso MD LAB BLOOD ORDERABLES Fi nal Result [facility] Department [place] [address] * (ABNORMAL) Basic metabolic panel (03/06/2023 8:39 AM CDT) [facility] Sodium 139 135 - 145 mmol/L [facility] Potassium, pl 4.3 3.3 - 4.9 mmol/L [facility] Chloride 102 97 - 110 mmol/L [facility] CO2 30 22 - 32 mmol/L [facility] Anion gap 7 2 - 15 mmol/L [facility] BUN 12 6 - 25 mg/dL [facility] Creatinine 2.02(H) 0.60 - 1.10 mg/dL [facility] Glucose 90 70 - 199 mg/dL [facility] Comment: Interpretive Data Fasting glucose >/= 126 [...] interpretive data was last revised 2022. Calcium 9.1 8.5 - 10.3 mg/dL [facility] Blood 03/06/2023 8:39 AM CDT 03/06/2023 9:32 AM CDT Benjamín Mancuso MD LAB BLOOD ORDERABLES Fi nal Result Performing Organization Address City/[facility]/ZIP Co de Phone Number [facility] Department [place] [address] * ECG 12 lead (03/06/2023 1:47 AM CDT) Ventricular Rate EKG/Min 56 BPM [facility] Atrial Rate 56 BPM [facility] [place]-Interval (MSEC) 192 ms [facility] QRS-Interval (MSEC) 108 ms [facility] QT-Interval (MSEC) 488 ms [facility] QTc 470 ms [facility] P Hayti 19 degrees [facility] R [place] 21 degrees [facility] T [place] 149 degrees [facility] Diagnosis Sinus bradycardia ST & T wave abnormality, consider inferior ischemia ST & T wave abnormality, consider anterolateral ischemia Prolonged QT Abnormal ECG When compared with ECG of 04-MAR-2023 07:22, Sinus rhythm has replaced Atrial fibrillation Vent. rate has decreased BY ??70 BPM Confirmed by EDWAR RODRIGUEZ M.D ([id number]) on 03/06/2023 10:22:09 AM [facility] 03/06/2023 1:47 AM CDT 03/06/2023 10:22 AM CDT Franca Echevarria DO ECG ORDERABLES Fin al Result [facility] * (ABNORMAL) eGFR (03/05/2023 9:21 PM CDT) Pathologist [facility] eGFR 23(L) 90 - 130 mL/min/1. 73 m2 [facility] Comment: Interpretive Data Reference Interval Normal ?>/= [...] interpretive data was last reviewed 2021. Blood 03/05/2023 9:21 PM CDT 03/05/2023 10:21 PM CDT us Estella Ellis MD PhD LAB BLOOD ORDERABL ES Final Result Performing Organization Address [facility] de Phone Number [facility] [place] [address] * Magnesium (03/05/2023 9:21 PM CDT) Magnesium 2.1 1.4 - 2.5 mg/dL [facility] Blood 03/05/2023 9:21 PM CDT 03/05/2023 10:21 PM CDT Estella Ellis MD PhD LAB BLOOD ORDERABL ES Final Result Performing Organization Address [facility] Co de Phone Number [facility] [place] [address] * (ABNORMAL) Basic metabolic panel (03/05/2023 9:21 PM CDT) Pathologist [facility] Sodium 139 135 - 145 mmol/L [facility] Potassium, pl 4.4 3.3 - 4.9 mmol/L [facility] Chloride 102 97 - 110 mmol/L [facility] CO2 30 22 - 32 mmol/L [facility] Anion gap 7 2 - 15 mmol/L [facility] BUN 12 6 - 25 mg/dL [facility] Creatinine 2.16(H) 0.60 - 1.10 mg/dL [facility] Glucose 103 70 - 199 mg/dL [facility] Comment: Interpretive Data Fasting glucose >/= 126 [...] 2022. Calcium 9.2 8.5 - 10.3 mg/dL [facility] Blood 03/05/2023 9:21 PM CDT 03/05/2023 10:21 PM CDT us Estella Ellis MD PhD LAB BLOOD ORDERABL ES Final Result [facility] [place] [address] * (ABNORMAL) eGFR (03/04/2023 8:34 PM CDT) [facility] eGFR 31(L) 90 - 130 mL/min/1. 73 m2 [facility] Comment: Interpretive Data Reference Interval Normal ?>/= [...] interpretive data was last reviewed 2021. Blood 03/04/2023 8:34 PM CDT 03/04/2023 9:21 PM CDT Estella Ellis MD PhD LAB BLOOD ORDERABL ES Final Result Performing Organization Address [facility] Co de Phone Number [facility] Department [place] [address] * Magnesium (03/04/2023 8:34 PM CDT) Magnesium 2.3 1.4 - 2.5 mg/dL [facility] Blood 03/04/2023 8:34 PM CDT 03/04/2023 9:21 PM CDT Estella Ellis MD PhD LAB BLOOD ORDERABL ES Final Result Performing Organization Address City/[facility] Co de Phone Number [facility] [place] [address] * (ABNORMAL) Basic metabolic panel (03/04/2023 8:34 PM CDT) [facility] Sodium 142 135 - 145 mmol/L [facility] Potassium, pl 4.2 3.3 - 4.9 mmol/L [facility] Chloride 104 97 - 110 mmol/L [facility] CO2 29 22 - 32 mmol/L [facility] Anion gap 9 2 - 15 mmol/L [facility] BUN 9 6 - 25 mg/dL [facility] Creatinine 1.68(H) 0.60 - 1.10 mg/dL [facility] Glucose 105 70 - 199 mg/dL [facility] Comment: Interpretive Data Fasting glucose >/= 126 [...] 2022. Calcium 9.6 8.5 - 10.3 mg/dL [facility] Blood 03/04/2023 8:34 PM CDT 03/04/2023 9:21 PM CDT Estella Ellis MD PhD LAB BLOOD ORDERABL ES Final Result [facility] [place] [address] * ECG 12 lead (03/04/2023 7:22 AM CDT) [facility] Ventricular Rate EKG/Min 126 BPM [facility] QRS-Interval (MSEC) 104 ms [facility] QT-Interval (MSEC) 336 ms [facility] QTc 486 ms [facility] R Hayti 22 degrees [facility] T Hayti 185 degrees [facility] Diagnosis Atrial fibrillation with rapid ventricular response ST & T wave abnormality, consider inferolateral ischemia Abnormal ECG When compared with ECG of 03-MAR-2023 13:08, (unconfirmed) Atrial fibrillation has replaced Sinus rhythm Vent. rate has increased BY ??67 BPM Confirmed by JAYSON ROMAN M.D ([id number]) on 03/05/2023 9:34:16 AM [facility] 03/04/2023 7:22 AM CDT 03/05/2023 9:34 AM CDT us Franca Echevarria DO ECG ORDERABLES Fin al Result Performing Organization Address City/[facility]/ZIP Co de Phone Number [facility] * (ABNORMAL) Vancomycin level trough (03/03/2023 8:58 PM CDT) Pathologist [facility] Vancomycin trough 21.4(H) 10.0 - 20.0 mcg/mL [facility] Blood 03/03/2023 8:58 PM CDT 03/03/2023 9:27 PM CDT Benjamín Mancuso MD LAB BLOOD ORDERABLES Fi nal Result Performing Organization Address [facility] Co de Phone Number [facility] [place] [address] * (ABNORMAL) eGFR (03/03/2023 8:58 PM CDT) Pathologist [facility] eGFR 39(L) 90 - 130 mL/min/1. 73 m2 [facility] Comment: Interpretive Data Reference Interval Normal ?>/= [...] interpretive data was last reviewed 2021. Blood 03/03/2023 8:58 PM CDT 03/03/2023 9:33 PM CDT Estella Ellis MD PhD LAB BLOOD ORDERABL ES Final Result [facility] [place] [address] * Magnesium (03/03/2023 8:58 PM CDT) Pathologist [facility] Magnesium 1.9 1.4 - 2.5 mg/dL [facility] Blood 03/03/2023 8:58 PM CDT 03/03/2023 9:27 PM CDT us Estella Ellis MD PhD LAB BLOOD ORDERABL ES Final Result [facility] [place] [address] * (ABNORMAL) Basic metabolic panel (03/03/2023 8:58 PM CDT) Sodium 140 135 - 145 mmol/L [facility] Potassium, pl 4.3 3.3 - 4.9 mmol/L [facility] Chloride 106 97 - 110 mmol/L [facility] CO2 29 22 - 32 mmol/L [facility] Anion gap 5 2 - 15 mmol/L [facility] BUN 9 6 - 25 mg/dL [facility] Creatinine 1.41(H) 0.60 - 1.10 mg/dL [facility] Glucose 112 70 - 199 mg/dL [facility] Comment: Interpretive Data Fasting glucose >/= 126 [...] 2022. Calcium 9.6 8.5 - 10.3 mg/dL [facility] Blood 03/03/2023 8:58 PM CDT 03/03/2023 9:27 PM CDT Estella Ellis MD PhD LAB BLOOD ORDERABL ES Final Result [facility] [place] [address] * ECG 12 lead (03/03/2023 1:08 PM CDT) Ventricular Rate EKG/Min 59 BPM [facility] Atrial Rate 59 BPM [facility] NE-Interval (MSEC) 180 ms [facility] QRS-Interval (MSEC) 104 ms [facility] QT-Interval (MSEC) 470 ms [facility] QTc 465 ms [facility] P [place]ti 5 degrees [facility] R Hayti 17 degrees [facility] T [place] 154 degrees [facility] Diagnosis Baseline artifact Sinus bradycardia Left ventricular hypertrophy with repolarization abnormality ( [place] product ) Abnormal ECG When compared with ECG of 03-MAR-2023 09:34, (unconfirmed) No significant change was found Confirmed by SERVANDO GARCIA M.D ([id number]) on 03/04/2023 8:45:25 PM [facility] 03/03/2023 1:08 PM CDT 03/04/2023 8:45 PM CDT us Franca Dona Echevarria DO ECG ORDERABLES Fin al Result Performing Organization Address [facility] Co de Phone Number [facility] * ECG 12 lead (03/03/2023 9:34 AM CDT) Ventricular Rate EKG/Min 60 BPM [facility] Atrial Rate 60 BPM [facility] NE-Interval (MSEC) 178 ms [facility] QRS-Interval (MSEC) 106 ms [facility] QT-Interval (MSEC) 448 ms [facility] QTc 448 ms [facility] P Hayti 29 degrees [facility] R Hayti 7 degrees [facility] T [place]ti 154 degrees [facility] Diagnosis Normal sinus rhythm Nonspecific ST and T wave abnormality Abnormal ECG When compared with ECG of 01-MAR-2023 10:16, (unconfirmed) ST-T changes have improved Confirmed by JAYSON ROMAN M.D ([id number]) on 03/04/2023 9:19:22 AM [facility] 03/03/2023 9:34 AM CDT 03/04/2023 9:19 AM CDT us Jose Roberto Santos MD PhD ECG ORDERABLES Fi nal Result Performing Organization Address [facility] de Phone Number [facility] * (ABNORMAL) eGFR (03/03/2023 9:30 AM CDT) eGFR 46(L) 90 - 130 mL/min/1. 73 m2 [facility] Comment: Interpretive Data Reference Interval Normal ?>/= [...] interpretive data was last reviewed 2021. Blood 03/03/2023 9:30 AM CDT 03/03/2023 10:13 AM CDT us Benjamín Mancuso MD LAB BLOOD ORDERABLES Fi nal Result [facility] Department [place] [address] * (ABNORMAL) Basic metabolic panel (03/03/2023 9:30 AM CDT) Pathologist [facility] Sodium 140 135 - 145 mmol/L [facility] Potassium, pl 3.7 3.3 - 4.9 mmol/L [facility] Chloride 104 97 - 110 mmol/L [facility] CO2 30 22 - 32 mmol/L [facility] Anion gap 6 2 - 15 mmol/L [facility] BUN 7 6 - 25 mg/dL [facility] Creatinine 1.22(H) 0.60 - 1.10 mg/dL [facility] Glucose 102 70 - 199 mg/dL [facility] Comment: Interpretive Data Fasting glucose >/= 126 [...] 2022. Calcium 9.2 8.5 - 10.3 mg/dL [facility] Blood 03/03/2023 9:30 AM CDT 03/03/2023 10:13 AM CDT us Benjamín Mancuso MD LAB BLOOD ORDERABLES Fi nal Result [facility] Department [place] [address] * (ABNORMAL) eGFR (03/02/2023 9:18 PM CDT) eGFR 43(L) 90 - 130 mL/min/1. 73 m2 [facility] Comment: Interpretive Data Reference Interval Normal ?>/= [...] interpretive data was last reviewed 2021. Blood 03/02/2023 9:18 PM CDT 03/02/2023 10:07 PM CDT Estella Ellis MD PhD LAB BLOOD ORDERABL ES Final Result Performing Organization Address City/[facility]/ZIP Co de Phone Number [facility] Department [place] [address] * Magnesium (03/02/2023 9:18 PM CDT) Pathologist [facility] Magnesium 2.2 1.4 - 2.5 mg/dL [facility] Blood 03/02/2023 9:18 PM CDT 03/02/2023 10:07 PM CDT Estella Ellis MD PhD LAB BLOOD ORDERABL ES Final Result Performing Organization Address City/[facility] Co de Phone Number [facility] [place] [address] * (ABNORMAL) Basic metabolic panel (03/02/2023 9:18 PM CDT) Sodium 143 135 - 145 mmol/L [facility] Potassium, pl 3.7 3.3 - 4.9 mmol/L [facility] Chloride 106 97 - 110 mmol/L [facility] CO2 29 22 - 32 mmol/L [facility] Anion gap 8 2 - 15 mmol/L [facility] BUN 6 6 - 25 mg/dL [facility] Creatinine 1.28(H) 0.60 - 1.10 mg/dL [facility] Glucose 113 70 - 199 mg/dL [facility] Comment: Interpretive Data Fasting glucose >/= 126 [...] 2022. Calcium 9.6 8.5 - 10.3 mg/dL [facility] Blood 03/02/2023 9:18 PM CDT 03/02/2023 10:07 PM CDT us Estella Ellis MD PhD LAB BLOOD ORDERABL ES Final Result [facility] [place] [address] * (ABNORMAL) eGFR (03/01/2023 8:14 PM CDT) eGFR 53(L) 90 - 130 mL/min/1. 73 m2 [facility] Comment: Interpretive Data Reference Interval Normal ?>/= [...] of Race in Diagnosing Kidney Disease, JASN 2021). The CKD-EPI equation should not be used for patients with unstable renal function and has not been validated in children and those over 70. Current interpretive data was last reviewed 2021. Blood 03/01/2023 8:14 PM CDT 03/01/2023 9:21 PM CDT Estella Ellis MD PhD LAB BLOOD ORDERABL ES Final Result [facility] Department [place] [address] * Differential, auto (03/01/2023 8:14 PM CDT) Neutrophil abs 2.0 1.7 - 6.5 K/cumm [facility] Imm gran abs 0.0 0.0 - 0.1 K/cumm [facility] Lymphocyte abs 1.4 0.8 - 3.3 K/cumm [facility] Monocyte abs 0.6 0.2 - 0.8 K/cumm [facility] Eosinophil abs 0.2 0.0 - 0.5 K/cumm [facility] Basophil abs 0.1 0.0 - 0.1 K/cumm [facility] Neutrophil pct 46.9 % [facility] Comment: Interpretive Data Percent cell count reference ranges are not reported, since discordance with absolute values may lead to misinterpretation of CBC data. Current Interpretive Data was last revised on 2017. Imm gran pct 0.5 % [facility] Comment: Interpretive Data Percent cell count reference ranges are not reported, since discordance with absolute values may lead to misinterpretation of CBC data. Current Interpretive Data was last revised on 2017. Lymphocyte pct 31.5 % [facility] Comment: Interpretive Data Percent cell count reference ranges are not reported, since discordance with absolute values may lead to misinterpretation of CBC data. Current Interpretive Data was last revised on 2017. Monocyte pct 13.9 % [facility] Comment: Interpretive Data Percent cell count reference ranges are not reported, since discordance with absolute values may lead to misinterpretation of CBC data. Current Interpretive Data was last revised on 2017. Eosinophil pct 5.3 % [facility] Comment: Interpretive Data Percent cell count reference ranges are not reported, since discordance with absolute values may lead to misinterpretation of CBC data. Current Interpretive Data was last revised on 2017. Basophil pct 1.9 % [facility] Comment: Interpretive Data Percent cell count reference ranges are not reported, since discordance with absolute values may lead to misinterpretation of CBC data. Current Interpretive Data was last revised on 2017. Blood 03/01/2023 8:14 PM CDT 03/01/2023 9:22 PM CDT Estella Ellis MD PhD LAB BLOOD ORDERABL ES Final Result Performing Organization Address [facility] Co de Phone Number [facility] [place] [place] [address] * Magnesium (03/01/2023 8:14 PM CDT) Pathologist [facility] Magnesium 1.8 1.4 - 2.5 mg/dL [facility] Blood 03/01/2023 8:14 PM CDT 03/01/2023 9:21 PM CDT Result [facility] Estella Ellis MD PhD LAB BLOOD ORDERABL ES Final Result Performing Organization Address [facility] de Phone Number [facility] [place] [place] [address] * (ABNORMAL) CBC with auto differential (03/01/2023 8:14 PM CDT) Pathologist [facility] WBC 4.3 3.8 - 9.9 K/cumm [facility] Hgb 7.7(L) 11.9 - 15.5 g/dL [facility] Hct 24.4(L) 35.6 - 45.5 % [facility] Plt 251 150 - 400 K/cumm [facility] MPV 11.9 9.1 - 12.3 fL [facility] RBC 2.58(L) 3.90 - 5.20 M/cumm [facility] MCV 94.6 81.3 - 96.4 fL [facility] MCH 29.8 27.1 - 33.3 pg [facility] MCHC 31.6(L) 32.3 - 35.7 g/dL [facility] RDW CV 14.9 11.1 - 14.9 % [facility] RDW SD 49.6(H) 35.7 - 48.1 fL [facility] NRBC abs 0.00 0.00 - 0.01 K/cumm [facility] Blood 03/01/2023 8:14 PM CDT 03/01/2023 9:22 PM CDT us Estella Ellis MD PhD LAB BLOOD ORDERABL ES Final Result [facility] Department [place] [address] * (ABNORMAL) Basic metabolic panel (03/01/2023 8:14 PM CDT) Sodium 142 135 - 145 mmol/L [facility] Potassium, pl 3.9 3.3 - 4.9 mmol/L [facility] Chloride 107 97 - 110 mmol/L [facility] CO2 28 22 - 32 mmol/L [facility] Anion gap 7 2 - 15 mmol/L [facility] BUN 5(L) 6 - 25 mg/dL [facility] Creatinine 1.09 0.60 - 1.10 mg/dL [facility] Glucose 106 70 - 199 mg/dL [facility] Comment: Interpretive Data Fasting glucose >/= 126 [...] 2022. Calcium 9.6 8.5 - 10.3 mg/dL [facility] Blood 03/01/2023 8:14 PM CDT 03/01/2023 9:21 PM CDT us Estella Ellis MD PhD LAB BLOOD ORDERABL ES Final Result Performing Organization Address City/[facility] Co de Phone Number [facility] [place] [address] * ECG 12 lead (03/01/2023 10:16 AM CDT) Ventricular Rate EKG/Min 54 BPM [facility] Atrial Rate 54 BPM [facility] NE-Interval (MSEC) 192 ms [facility] QRS-Interval (MSEC) 106 ms [facility] QT-Interval (MSEC) 490 ms [facility] QTc 464 ms [facility] P Hayti 19 degrees [facility] R Hayti 31 degrees [facility] T Hayti 157 degrees [facility] Diagnosis Sinus bradycardia ST & T wave abnormality, consider anterolateral ischemia /infarct Abnormal ECG When compared with ECG of 26-FEB-2023 06:35, ST-T wave abnormalities now worse Confirmed by SERVANDO GARCIA M.D ([id number]) on 03/03/2023 5:40:09 PM [facility] 03/01/2023 10:1 6 AM CDT 03/03/2023 5:40 PM CDT us Jose Roberto Santos MD PhD ECG ORDERABLES Fi nal Result Performing Organization Address [facility]/ZIP Co de Phone Number [facility] * (ABNORMAL) eGFR (02/28/2023 8:33 PM CDT) Pathologist [facility] eGFR 60(L) 90 - 130 mL/min/1. 73 m2 [facility] Comment: Interpretive Data Reference Interval Normal ?>/= [...] interpretive data was last reviewed 2021. Blood 02/28/2023 8:33 PM CDT 02/28/2023 9:27 PM CDT us Estella Ellis MD PhD LAB BLOOD ORDERABL ES Final Result [facility] Department of Laboratories [place], [place] [id number] * Differential, auto (02/28/2023 8:33 PM CDT) Neutrophil abs 3.3 1.7 - 6.5 K/cumm [facility] Imm gran abs 0.0 0.0 - 0.1 K/cumm [facility] Lymphocyte abs 1.5 0.8 - 3.3 K/cumm [facility] Monocyte abs 0.8 0.2 - 0.8 K/cumm [facility] Eosinophil abs 0.2 0.0 - 0.5 K/cumm [facility] Basophil abs 0.1 0.0 - 0.1 K/cumm [facility] Neutrophil pct 57.2 % [facility] Comment: Interpretive Data Percent cell count reference ranges are not reported, since discordance with absolute values may lead to misinterpretation of CBC data. Current Interpretive Data was last revised on 2017. Imm gran pct 0.5 % [facility] Comment: Interpretive Data Percent cell count reference ranges are not reported, since discordance with absolute values may lead to misinterpretation of CBC data. Current Interpretive Data was last revised on 2017. Lymphocyte pct 25.3 % [facility] Comment: Interpretive Data Percent cell count reference ranges are not reported, since discordance with absolute values may lead to misinterpretation of CBC data. Current Interpretive Data was last revised on 2017. Monocyte pct 12.9 % [facility] Comment: Interpretive Data Percent cell count reference ranges are not reported, since discordance with absolute values may lead to misinterpretation of CBC data. Current Interpretive Data was last revised on 2017. Eosinophil pct 3.1 % [facility] Comment: Interpretive Data Percent cell count reference ranges are not reported, since discordance with absolute values may lead to misinterpretation of CBC data. Current Interpretive Data was last revised on 2017. Basophil pct 1.0 % [facility] Comment: Interpretive Data Percent cell count reference ranges are not reported, since discordance with absolute values may lead to misinterpretation of CBC data. Current Interpretive Data was last revised on 2017. Blood 02/28/2023 8:33 PM CDT 02/28/2023 9:27 PM CDT us Estella Ellis MD PhD LAB BLOOD ORDERABL ES Final Result [facility] Department of Laboratories [place], [place] [id number] * Vancomycin level trough 30min before pm vanc please. Thanks! (02/28/2023 8:33 PM CDT) Vancomycin trough 19.5 10.0 - 20.0 mcg/mL [facility] Blood 02/28/2023 8:33 PM CDT 02/28/2023 9:27 PM CDT Narrative [facility] - 02/28/2023 9:54 PM CDT 30min before pm vanc please. Thanks! us Ritika Serrano MD LAB BLOOD ORDERABLES Final Resul t Performing Organization Address City/[facility]/ZIP Co de Phone Number [facility] [place] [address] * Magnesium (02/28/2023 8:33 PM CDT) [facility] Magnesium 1.9 1.4 - 2.5 mg/dL [facility] Blood 02/28/2023 8:33 PM CDT 02/28/2023 9:27 PM CDT us Estella Ellis MD PhD LAB BLOOD ORDERABL ES Final Result Performing Organization Address [facility] de Phone Number [facility] [place] [address] * (ABNORMAL) CBC with auto differential (02/28/2023 8:33 PM CDT) [facility] WBC 5.8 3.8 - 9.9 K/cumm [facility] Hgb 7.6(L) 11.9 - 15.5 g/dL [facility] Hct 24.4(L) 35.6 - 45.5 % [facility] Plt 258 150 - 400 K/cumm [facility] MPV 11.9 9.1 - 12.3 fL [facility] RBC 2.59(L) 3.90 - 5.20 M/cumm [facility] MCV 94.2 81.3 - 96.4 fL [facility] MCH 29.3 27.1 - 33.3 pg [facility] MCHC 31.1(L) 32.3 - 35.7 g/dL [facility] RDW CV 14.6 11.1 - 14.9 % [facility] RDW SD 48.0 35.7 - 48.1 fL [facility] NRBC abs 0.00 0.00 - 0.01 K/cumm [facility] Blood 02/28/2023 8:33 PM CDT 02/28/2023 9:27 PM CDT Estella Ellis MD PhD LAB BLOOD ORDERABL ES Final Result [facility] Department [place] [address] * Basic metabolic panel (02/28/2023 8:33 PM CDT) Pathologist [facility] Sodium 141 135 - 145 mmol/L [facility] Potassium, pl 3.9 3.3 - 4.9 mmol/L [facility] Chloride 108 97 - 110 mmol/L [facility] CO2 28 22 - 32 mmol/L [facility] Anion gap 5 2 - 15 mmol/L [facility] BUN 6 6 - 25 mg/dL [facility] Creatinine 0.98 0.60 - 1.10 mg/dL [facility] Glucose 125 70 - 199 mg/dL [facility] Comment: Interpretive Data Fasting glucose >/= 126 [...] 2022. Calcium 9.6 8.5 - 10.3 mg/dL [facility] Blood 02/28/2023 8:33 PM CDT 02/28/2023 9:27 PM CDT Estella Ellis MD PhD LAB BLOOD ORDERABL ES Final Result Performing Organization Address City/[facility]/ZIP Co de Phone Number [facility] [place] [address] * (ABNORMAL) eGFR (02/27/2023 8:50 PM CDT) eGFR 54(L) 90 - 130 mL/min/1. 73 m2 [facility] Comment: Interpretive Data Reference Interval Normal ?>/= [...] interpretive data was last reviewed 2021. Blood 02/27/2023 8:50 PM CDT 02/27/2023 9:36 PM CDT Estella Ellis MD PhD LAB BLOOD ORDERABL ES Final Result [facility] [place] [address] * Differential, auto (02/27/2023 8:50 PM CDT) Neutrophil abs 5.3 1.7 - 6.5 K/cumm [facility] Imm gran abs 0.1 0.0 - 0.1 K/cumm [facility] Lymphocyte abs 1.4 0.8 - 3.3 K/cumm [facility] Monocyte abs 0.8 0.2 - 0.8 K/cumm [facility] Eosinophil abs 0.2 0.0 - 0.5 K/cumm [facility] Basophil abs 0.1 0.0 - 0.1 K/cumm [facility] Neutrophil pct 67.9 % [facility] Comment: Interpretive Data Percent cell count reference ranges are not reported, since discordance with absolute values may lead to misinterpretation of CBC data. Current Interpretive Data was last revised on 2017. Imm gran pct 0.6 % [facility] Comment: Interpretive Data Percent cell count reference ranges are not reported, since discordance with absolute values may lead to misinterpretation of CBC data. Current Interpretive Data was last revised on 2017. Lymphocyte pct 18.0 % [facility] Comment: Interpretive Data Percent cell count reference ranges are not reported, since discordance with absolute values may lead to misinterpretation of CBC data. Current Interpretive Data was last revised on 2017. Monocyte pct 10.3 % [facility] Comment: Interpretive Data Percent cell count reference ranges are not reported, since discordance with absolute values may lead to misinterpretation of CBC data. Current Interpretive Data was last revised on 2017. Eosinophil pct 2.4 % [facility] Comment: Interpretive Data Percent cell count reference ranges are not reported, since discordance with absolute values may lead to misinterpretation of CBC data. Current Interpretive Data was last revised on 2017. Basophil pct 0.8 % [facility] Comment: Interpretive Data Percent cell count reference ranges are not reported, since discordance with absolute values may lead to misinterpretation of CBC data. Current Interpretive Data was last revised on 2017. Blood 02/27/2023 8:50 PM CDT 02/27/2023 9:37 PM CDT Estella Ellis MD PhD LAB BLOOD ORDERABL ES Final Result [facility] [place] [address] * Magnesium (02/27/2023 8:50 PM CDT) [facility] Magnesium 1.9 1.4 - 2.5 mg/dL [facility] Blood 02/27/2023 8:50 PM CDT 02/27/2023 9:36 PM CDT Estella Ellis MD PhD LAB BLOOD ORDERABL ES Final Result Performing Organization Address [facility] Co de Phone Number [facility] Department [place] [address] * (ABNORMAL) CBC with auto differential (02/27/2023 8:50 PM CDT) [facility] WBC 7.8 3.8 - 9.9 K/cumm [facility] Hgb 7.5(L) 11.9 - 15.5 g/dL [facility] Hct 24.4(L) 35.6 - 45.5 % [facility] Plt 269 150 - 400 K/cumm [facility] MPV 12.0 9.1 - 12.3 fL [facility] RBC 2.55(L) 3.90 - 5.20 M/cumm [facility] MCV 95.7 81.3 - 96.4 fL [facility] MCH 29.4 27.1 - 33.3 pg [facility] MCHC 30.7(L) 32.3 - 35.7 g/dL [facility] RDW CV 14.3 11.1 - 14.9 % [facility] RDW SD 47.4 35.7 - 48.1 fL [facility] NRBC abs 0.00 0.00 - 0.01 K/cumm [facility] Blood 02/27/2023 8:50 PM CDT 02/27/2023 9:37 PM CDT Estella Ellis MD PhD LAB BLOOD ORDERABL ES Final Result Performing Organization Address City/[facility]/ZIP Co de Phone Number [facility] [place] [address] * Basic metabolic panel (02/27/2023 8:50 PM CDT) Pathologist [facility] Sodium 141 135 - 145 mmol/L [facility] Potassium, pl 4.0 3.3 - 4.9 mmol/L [facility] Chloride 107 97 - 110 mmol/L [facility] CO2 28 22 - 32 mmol/L [facility] Anion gap 6 2 - 15 mmol/L [facility] BUN 7 6 - 25 mg/dL [facility] Creatinine 1.06 0.60 - 1.10 mg/dL [facility] Glucose 109 70 - 199 mg/dL [facility] Comment: Interpretive Data Fasting glucose >/= 126 [...] 2022. Calcium 9.3 8.5 - 10.3 mg/dL [facility] Blood 02/27/2023 8:50 PM CDT 02/27/2023 9:36 PM CDT Estella Ellis MD PhD LAB BLOOD ORDERABL ES Final Result Performing Organization Address [facility] Co de Phone Number [facility] Department [place] [address] * (ABNORMAL) Digoxin level (02/27/2023 5:03 AM CDT) Pathologist [facility] Digoxin 0.9(H) 0.5 - 0.8 ng/mL [facility] Comment: Interpretive data Digoxin concentrations as high as 2 ng/mL may be useful in treating atrial fibrillation. Current interpretive data was last reviewed on 05/18/2013. Blood 02/27/2023 5:03 AM CDT 02/27/2023 5:46 AM CDT Estella Ellis MD PhD LAB BLOOD ORDERABL ES Final Result [facility] [place] [address] * (ABNORMAL) eGFR (02/26/2023 9:09 PM CDT) Pathologist [facility] eGFR 54(L) 90 - 130 mL/min/1. 73 m2 [facility] Comment: Interpretive Data Reference Interval Normal ?>/= [...] interpretive data was last reviewed 2021. Blood 02/26/2023 9:09 PM CDT 02/26/2023 9:48 PM CDT us Estella Ellis MD PhD LAB BLOOD ORDERABL ES Final Result [facility] [place] [address] * Differential, auto (02/26/2023 9:09 PM CDT) Neutrophil abs 4.4 1.7 - 6.5 K/cumm [facility] Imm gran abs 0.1 0.0 - 0.1 K/cumm [facility] Lymphocyte abs 1.5 0.8 - 3.3 K/cumm [facility] Monocyte abs 0.7 0.2 - 0.8 K/cumm [facility] Eosinophil abs 0.2 0.0 - 0.5 K/cumm [facility] Basophil abs 0.1 0.0 - 0.1 K/cumm [facility] Neutrophil pct 63.9 % [facility] Comment: Interpretive Data Percent cell count reference ranges are not reported, since discordance with absolute values may lead to misinterpretation of CBC data. Current Interpretive Data was last revised on 2017. Imm gran pct 0.7 % [facility] Comment: Interpretive Data Percent cell count reference ranges are not reported, since discordance with absolute values may lead to misinterpretation of CBC data. Current Interpretive Data was last revised on 2017. Lymphocyte pct 21.5 % [facility] Comment: Interpretive Data Percent cell count reference ranges are not reported, since discordance with absolute values may lead to misinterpretation of CBC data. Current Interpretive Data was last revised on 2017. Monocyte pct 10.2 % [facility] Comment: Interpretive Data Percent cell count reference ranges are not reported, since discordance with absolute values may lead to misinterpretation of CBC data. Current Interpretive Data was last revised on 2017. Eosinophil pct 2.7 % [facility] Comment: Interpretive Data Percent cell count reference ranges are not reported, since discordance with absolute values may lead to misinterpretation of CBC data. Current Interpretive Data was last revised on 2017. Basophil pct 1.0 % [facility] Comment: Interpretive Data Percent cell count reference ranges are not reported, since discordance with absolute values may lead to misinterpretation of CBC data. Current Interpretive Data was last revised on 2017. Blood 02/26/2023 9:09 PM CDT 02/26/2023 9:48 PM CDT Estella Ellis MD PhD LAB BLOOD ORDERABL ES Final Result Performing Organization Address City/[facility]/ZIP Co de Phone Number [facility] [place] [address] * Magnesium (02/26/2023 9:09 PM CDT) [facility] Magnesium 1.9 1.4 - 2.5 mg/dL [facility] Blood 02/26/2023 9:09 PM CDT 02/26/2023 9:48 PM CDT Estella Ellis MD PhD LAB BLOOD ORDERABL ES Final Result Performing Organization Address City/[facility]/ZIP Co de Phone Number [facility] [place] [address] * (ABNORMAL) CBC with auto differential (02/26/2023 9:09 PM CDT) Pathologist [facility] WBC 6.9 3.8 - 9.9 K/cumm [facility] Hgb 7.6(L) 11.9 - 15.5 g/dL [facility] Hct 24.3(L) 35.6 - 45.5 % [facility] Plt 268 150 - 400 K/cumm [facility] MPV 11.6 9.1 - 12.3 fL [facility] RBC 2.62(L) 3.90 - 5.20 M/cumm [facility] MCV 92.7 81.3 - 96.4 fL [facility] MCH 29.0 27.1 - 33.3 pg [facility] MCHC 31.3(L) 32.3 - 35.7 g/dL [facility] RDW CV 14.3 11.1 - 14.9 % [facility] RDW SD 47.7 35.7 - 48.1 fL [facility] NRBC abs 0.00 0.00 - 0.01 K/cumm [facility] Blood 02/26/2023 9:09 PM CDT 02/26/2023 9:48 PM CDT Estella Ellis MD PhD LAB BLOOD ORDERABL ES Final Result [facility] Department [place] [address] * Basic metabolic panel (02/26/2023 9:09 PM CDT) Sodium 140 135 - 145 mmol/L [facility] Potassium, pl 3.9 3.3 - 4.9 mmol/L [facility] Chloride 106 97 - 110 mmol/L [facility] CO2 27 22 - 32 mmol/L [facility] Anion gap 7 2 - 15 mmol/L [facility] BUN 7 6 - 25 mg/dL [facility] Creatinine 1.07 0.60 - 1.10 mg/dL [facility] Glucose 101 70 - 199 mg/dL [facility] Comment: Interpretive Data Fasting glucose >/= 126 [...] interpretive data was last revised 2022. Calcium 9.4 8.5 - 10.3 mg/dL [facility] Blood 02/26/2023 9:09 PM CDT 02/26/2023 9:48 PM CDT us Estella Ellis MD PhD LAB BLOOD ORDERABL ES Final Result [facility] [place] [address] * XR Wrist Right 3 or More Views (02/26/2023 12:43 PM CDT) Anatomical Region Laterality Modality Upper Extremities, Wrist Right Compute d Radiography 02/26/2023 1:04 PM CDT Impressions 02/26/2023 1:04 PM CDT 1. ??Healing mildly impacted, mildly displaced, intra-articular distal radial fracture in unchanged alignment. 2. ??Possible minimally displaced ulnar styloid process fracture. Recommend correlation with outside radiographs obtained at the original time of injury. Electronically signed by: Sameer Mccray MD Narrative 02/26/2023 1:04 PM CDT EXAMINATION: XR WRIST RIGHT 3 OR MORE VIEWS, XR RADIUS ULNA RIGHT 2 VIEWS HISTORY: ??Fracture FINDINGS: Comparison 02/20/2023. ??3 radiographs of the right wrist and to radiographs of the right radius and ulna are submitted for interpretation. In cast radiographs are obtained. ??Redemonstrated mildly impacted, mildly displaced, intra-articular fracture of the distal radius in unchanged alignment. ??There has been interval development of sclerosis and minimal callus formation at the fracture site. Suspected minimally displaced ulnar styloid process fracture. ??Soft tissue swelling is present around the wrist. Procedure Note Sameer Mccray MD - 02/26/2023 EXAMINATION: XR WRIST RIGHT 3 OR MORE VIEWS, XR RADIUS ULNA RIGHT 2 VIEWS HISTORY: Fracture FINDINGS: Comparison 02/20/2023. 3 radiographs of the right wrist and to radiographs of the right radius and ulna are submitted for interpretation. In cast radiographs are obtained. Redemonstrated mildly impacted, mildly displaced, intra-articular fracture of the distal radius in unchanged alignment. There has been interval development of sclerosis and minimal callus formation at the fracture site. Suspected minimally displaced ulnar styloid process fracture. Soft tissue swelling is present around the wrist. IMPRESSION: 1. Healing mildly impacted, mildly displaced, intra-articular distal radial fracture in unchanged alignment. 2. Possible minimally displaced ulnar styloid process fracture. Recommend correlation with outside radiographs obtained at the original time of injury. Electronically signed by: Sameer Mccray MD Estella Ellis MD PhD IMG XR PROCEDURES Final Result * XR Radius Ulna Right 2 Views (02/26/2023 12:42 PM CDT) Anatomical Region Laterality Modality Upper Extremities, Forearm Right Compu christel Radiography 02/26/2023 1:04 PM CDT Impressions 02/26/2023 1:04 PM CDT 1. ??Healing mildly impacted, mildly displaced, intra-articular distal radial fracture in unchanged alignment. 2. ??Possible minimally displaced ulnar styloid process fracture. Recommend correlation with outside radiographs obtained at the original time of injury. Electronically signed by: Sameer Mccray MD Narrative 02/26/2023 1:04 PM CDT EXAMINATION: XR WRIST RIGHT 3 OR MORE VIEWS, XR RADIUS ULNA RIGHT 2 VIEWS HISTORY: ??Fracture FINDINGS: Comparison 02/20/2023. ??3 radiographs of the right wrist and to radiographs of the right radius and ulna are submitted for interpretation. In cast radiographs are obtained. ??Redemonstrated mildly impacted, mildly displaced, intra-articular fracture of the distal radius in unchanged alignment. ??There has been interval development of sclerosis and minimal callus formation at the fracture site. Suspected minimally displaced ulnar styloid process fracture. ??Soft tissue swelling is present around the wrist. Procedure Note Sameer Mccray MD - 02/26/2023 EXAMINATION: XR WRIST RIGHT 3 OR MORE VIEWS, XR RADIUS ULNA RIGHT 2 VIEWS HISTORY: Fracture FINDINGS: Comparison 02/20/2023. 3 radiographs of the right wrist and to radiographs of the right radius and ulna are submitted for interpretation. In cast radiographs are obtained. Redemonstrated mildly impacted, mildly displaced, intra-articular fracture of the distal radius in unchanged alignment. There has been interval development of sclerosis and minimal callus formation at the fracture site. Suspected minimally displaced ulnar styloid process fracture. Soft tissue swelling is present around the wrist. IMPRESSION: 1. Healing mildly impacted, mildly displaced, intra-articular distal radial fracture in unchanged alignment. 2. Possible minimally displaced ulnar styloid process fracture. Recommend correlation with outside radiographs obtained at the original time of injury. Electronically signed by: Sameer Mccray MD Result [facility] Estella Ellis MD PhD IMG XR PROCEDURES Final Result * ECG 12 lead (02/26/2023 6:35 AM CDT) Pathologist [facility] Ventricular Rate EKG/Min 59 BPM [facility] Atrial Rate 59 BPM [facility] NE-Interval (MSEC) 188 ms [facility] QRS-Interval (MSEC) 102 ms [facility] QT-Interval (MSEC) 480 ms [facility] QTc 475 ms [facility] P Hayti 19 degrees [facility] R Hayti 33 degrees [facility] T Hayti 183 degrees [facility] Diagnosis Sinus bradycardia ST & T wave abnormality, consider anterolateral ischemia Prolonged QT Abnormal ECG When compared with ECG of 17-FEB-2023 17:19, Sinus rhythm has replaced Atrial fibrillation Vent. rate has decreased BY ??84 BPM Confirmed by EDWAR RODRIGUEZ M.D ([id number]) on 02/26/2023 2:58:53 PM [facility] 02/26/2023 6:35 AM CDT 02/26/2023 2:58 PM CDT Result [facility] Estella Ellis MD PhD ECG ORDERABLES Fi nal Result [facility] * (ABNORMAL) Digoxin level (02/26/2023 5:30 AM CDT) Pathologist [facility] Digoxin 1.0(H) 0.5 - 0.8 ng/mL [facility] Comment: Interpretive data Digoxin concentrations as high as 2 ng/mL may be useful in treating atrial fibrillation. Current interpretive data was last reviewed on 05/18/2013. Blood 02/26/2023 5:30 AM CDT 02/26/2023 5:46 AM CDT Estella Ellis MD PhD LAB BLOOD ORDERABL ES Final Result [facility] Department [place] [address] * (ABNORMAL) eGFR (02/25/2023 10:53 PM CDT) eGFR 57(L) 90 - 130 mL/min/1. 73 m2 [facility] Comment: Interpretive Data Reference Interval Normal ?>/= [...] interpretive data was last reviewed 2021. Blood 02/25/2023 10:5 3 PM CDT 02/25/2023 11:26 PM CDT us Franca Echevarria DO LAB BLOOD ORDERABLE S Final Result Performing Organization Address City/[facility]/ZIP Co de Phone Number [facility] Department [place] [address] * Differential, auto (02/25/2023 10:53 PM CDT) Neutrophil abs 4.3 1.7 - 6.5 K/cumm [facility] Imm gran abs 0.1 0.0 - 0.1 K/cumm [facility] Lymphocyte abs 1.6 0.8 - 3.3 K/cumm [facility] Monocyte abs 0.7 0.2 - 0.8 K/cumm [facility] Eosinophil abs 0.2 0.0 - 0.5 K/cumm [facility] Basophil abs 0.1 0.0 - 0.1 K/cumm [facility] Neutrophil pct 62.3 % [facility] Comment: Interpretive Data Percent cell count reference ranges are not reported, since discordance with absolute values may lead to misinterpretation of CBC data. Current Interpretive Data was last revised on 2017. Imm gran pct 0.7 % [facility] Comment: Interpretive Data Percent cell count reference ranges are not reported, since discordance with absolute values may lead to misinterpretation of CBC data. Current Interpretive Data was last revised on 2017. Lymphocyte pct 22.7 % [facility] Comment: Interpretive Data Percent cell count reference ranges are not reported, since discordance with absolute values may lead to misinterpretation of CBC data. Current Interpretive Data was last revised on 2017. Monocyte pct 10.5 % [facility] Comment: Interpretive Data Percent cell count reference ranges are not reported, since discordance with absolute values may lead to misinterpretation of CBC data. Current Interpretive Data was last revised on 2017. Eosinophil pct 3.1 % [facility] Comment: Interpretive Data Percent cell count reference ranges are not reported, since discordance with absolute values may lead to misinterpretation of CBC data. Current Interpretive Data was last revised on 2017. Basophil pct 0.7 % [facility] Comment: Interpretive Data Percent cell count reference ranges are not reported, since discordance with absolute values may lead to misinterpretation of CBC data. Current Interpretive Data was last revised on 2017. Blood 02/25/2023 10:5 3 PM CDT 02/25/2023 11:26 PM CDT us Franca Echevarria DO LAB BLOOD ORDERABLE S Final Result [facility] Department [place] [address] * Magnesium (02/25/2023 10:53 PM CDT) Pathologist [facility] Magnesium 2.0 1.4 - 2.5 mg/dL [facility] Blood 02/25/2023 10:5 3 PM CDT 02/25/2023 11:26 PM CDT us Estella Ellis MD PhD LAB BLOOD ORDERABL ES Final Result Performing Organization Address [facility] Co de Phone Number [facility] [place] [address] * (ABNORMAL) CBC with auto differential (02/25/2023 10:53 PM CDT) [facility] WBC 6.9 3.8 - 9.9 K/cumm [facility] Hgb 7.1(L) 11.9 - 15.5 g/dL [facility] Hct 22.7(L) 35.6 - 45.5 % [facility] Plt 262 150 - 400 K/cumm [facility] MPV 11.7 9.1 - 12.3 fL [facility] RBC 2.44(L) 3.90 - 5.20 M/cumm [facility] MCV 93.0 81.3 - 96.4 fL [facility] MCH 29.1 27.1 - 33.3 pg [facility] MCHC 31.3(L) 32.3 - 35.7 g/dL [facility] RDW CV 14.3 11.1 - 14.9 % [facility] RDW SD 47.7 35.7 - 48.1 fL [facility] NRBC abs 0.00 0.00 - 0.01 K/cumm [facility] Blood 02/25/2023 10:5 3 PM CDT 02/25/2023 11:26 PM CDT Estella Ellis MD PhD LAB BLOOD ORDERABL ES Final Result Performing Organization Address [facility] Co de Phone Number [facility] Department [place] [address] * Basic metabolic panel (02/25/2023 10:53 PM CDT) [facility] Sodium 137 135 - 145 mmol/L [facility] Potassium, pl 4.0 3.3 - 4.9 mmol/L [facility] Chloride 102 97 - 110 mmol/L [facility] CO2 27 22 - 32 mmol/L [facility] Anion gap 8 2 - 15 mmol/L [facility] BUN 7 6 - 25 mg/dL [facility] Creatinine 1.02 0.60 - 1.10 mg/dL [facility] Glucose 79 70 - 199 mg/dL [facility] Comment: Interpretive Data Fasting glucose >/= 126 [...] 2022. Calcium 9.2 8.5 - 10.3 mg/dL [facility] Blood 02/25/2023 10:5 3 PM CDT 02/25/2023 11:26 PM CDT Estella Ellis MD PhD LAB BLOOD ORDERABL ES Final Result Performing Organization Address [facility] Co de Phone Number [facility] [place] [address] * TRANSESOPHAGEAL ECHO (HOOD) W DOPPLER/CF W CARDIOVERSION (02/25/2023 1:43 PM CDT) Anatomical Region Laterality Modality Echocardiography 02/25/2023 12:3 0 PM CDT Narrative 02/25/2023 2:07 PM CDT Patient name: Tiera Lobato Date of test: 02/25/2023 Date of : 1945 (F) Hospital #: 0 ?Location: [facility] Cardiac Diagnostic Lab Interpreted by: Jamari Dias MD Calender Let Off Operator: Shaquille Solano MD RN: Reason for Test: atrial fibrillation Study quality: Technically good Referring Physician: ESTELLA ELLIS MD Contrast Agent: Aortic valve: tricuspid, and is minimally thickened, and the motion Normal Aortic root: Normal ? Aortic Arch: Mild Atherosclerosis Ascending Aorta: Normal ? Descending Aorta: Moderate Atherosclerosis Pulmonic valve: Normal ? Pulmonary Artery: Pulmonary vein: systolic blunting Mitral valve: Normal, motion Normal, and annulus is Normal Tricuspid valve: Normal, Pulmonic valve: Normal Valvular vegetation: none seen, Mass/Thrombinone seen LA Appendage: Normal Wall Motion Scoring (1=Normal 2=Hypo 3=Akinetic 4=Dyskin. 5=Aneurysm 0=Not visualized) Short Hayti-Gastric:=1 S=1 I=1 P=1 L=1 A=1 Long Hayti-Gastric:BP=1 BA=1 MP=1 MA=1 AP=1 AA=1 Chamber Dimensions: RA: Normal LA: Normal RV: Normal LV: Normal LV function: Normal left ventricular systolic function RV function: Normal Pericardium: No pericardial effusion seen Diastolic function: ??Atrial Septum: small PFO with L-to-R shunt Wall Thickness: RV: Normal LV: Normal Sedation/Tolerance: ??Sedation: HOOD performed with intravenous conscious sedation. ??Meds Admin: ?propofol 262 per anesthesia ??Tolerance: Doppler/CF results Aortic Value - Regurgitation: Trivial AR Mitral Valve - Regurgitation: Mild MR Aortic Value - Stenosis: no Mitral Valve - Stenosis: ??no MS Aortic Value - Area: Mitral Value - Area: Aortic Value - Pressure Gradient: Mitral Value - Pressure Gradient: Aortic Value - Pressure Gradient - Peak: Tricuspid: mild TV regurgitation PA Pressure: MV ERO: ??cm2 Regurg. Volume: ??mL/beat Regurg. Fraction: 0 % Complication: None Doppler/CF comments Trivial AR, Mild MR, no , ??no MS, mild TV regurgitation, normal PV. ? HOOD Summary ? Shaquille Solano MD performed the HOOD probe placement with Jamari Dias MD present. Initial rhythm atrial fibrillation. Normal LV size with LVH with apical hypertrophy. ??Normal LV systolic function. RV size and systolic function.Normal LA and RA sizes. ?Trvial AR. Otherwise no significant valvular abnormalities. OWEN is free of thrombus. Small color flow Doppler evidence of PFO. No pericardial effusion. Visualized portions of aorta with moderate atherosclerosis.? ?Synchronized DC cardioversion performed x1 (200 J) SUCCESSFUL to NSR. 3D Imaging: This study was supervised and interpreted by Jamari Dias MD Confirmed on ??02/25/2023 - 14:07:07 by Jamari Dias MD ?? Public Affairs Manager: Shaquille Solano MD By signing this report, the attending senior cisco network engineer certifies that he or she has personally supervised and interpreted the echocardiogram and has reviewed and or edited and agrees with the written comments contained within the report. Procedure Note Jamari Dias MD - 02/25/2023 Patient name: Tiera Lobato Date of test: 02/25/2023 Date of : 1945 (F) Hospital #: 0 Location: [facility] Cardiac Diagnostic Lab Interpreted by: Jamari Dias MD Calender Let Off Operator: Shaquille Solano MD RN: Reason for Test: atrial fibrillation Study quality: Technically good Referring Physician: ESTELLA ELLIS MD Contrast Agent: Aortic valve: tricuspid, and is minimally thickened, and the motion Normal Aortic root: Normal Aortic Arch: Mild Atherosclerosis Ascending Aorta: Normal Descending Aorta: Moderate Atherosclerosis Pulmonic valve: Normal Pulmonary Artery: Pulmonary vein: systolic blunting Mitral valve: Normal, motion Normal, and annulus is Normal Tricuspid valve: Normal, Pulmonic valve: Normal Valvular vegetation: none seen, Mass/Thrombinone seen LA Appendage: Normal Wall Motion Scoring (1=Normal 2=Hypo 3=Akinetic 4=Dyskin. 5=Aneurysm 0=Not visualized) Short Hayti-Gastric:=1 S=1 I=1 P=1 L=1 A=1 Long Hayti-Gastric:BP=1 BA=1 MP=1 MA=1 AP=1 AA=1 Chamber Dimensions: RA: Normal LA: Normal RV: Normal LV: Normal LV function: Normal left ventricular systolic function RV function: Normal Pericardium: No pericardial effusion seen Diastolic function: Atrial Septum: small PFO with L-to-R shunt Wall Thickness: RV: Normal LV: Normal Sedation/Tolerance: Sedation: HOOD performed with intravenous conscious sedation. Meds Admin: propofol 262 per anesthesia Tolerance: Doppler/CF results Aortic Value - Regurgitation: Trivial AR Mitral Valve - Regurgitation: Mild MR Aortic Value - Stenosis: no Mitral Valve - Stenosis: no MS Aortic Value - Area: Mitral Value - Area: Aortic Value - Pressure Gradient: Mitral Value - Pressure Gradient: Aortic Value - Pressure Gradient - Peak: Tricuspid: mild TV regurgitation PA Pressure: MV ERO: cm2 Regurg. Volume: mL/beat Regurg. Fraction: 0 % Complication: None Doppler/CF comments Trivial AR, Mild MR, no , no MS, mild TV regurgitation, normal PV. HOOD Summary Shaquille Solano MD performed the HOOD probe placement with Jamari Dias MD present. Initial rhythm atrial fibrillation. Normal LV size with LVH with apical hypertrophy. Normal LV systolic function. RV size and systolic function.Normal LA and RA sizes. ?Trvial AR. Otherwise no significant valvular abnormalities. OWEN is free of thrombus. Small color flow Doppler evidence of PFO. No pericardial effusion. Visualized portions of aorta with moderate atherosclerosis.? ?Synchronized DC cardioversion performed x1 (200 J) SUCCESSFUL to NSR. 3D Imaging: This study was supervised and interpreted by Jamari Dias MD Confirmed on 02/25/2023 - 14:07:07 by Jamari Dias MD Public Affairs Manager: Shaquille Solano MD By signing this report, the attending senior cisco network engineer certifies that he or she has personally supervised and interpreted the echocardiogram and has reviewed and or edited and agrees with the written comments contained within the report. Estella Ellis MD PhD CV ECHO PROCEDURES Final Result * Digoxin level (02/25/2023 4:54 AM CDT) [facility] Digoxin 0.7 0.5 - 0.8 ng/mL [facility] Comment: Interpretive data Digoxin concentrations as high as 2 ng/mL may be useful in treating atrial fibrillation. Current interpretive data was last reviewed on 05/18/2013. Blood 02/25/2023 4:54 AM CDT 02/25/2023 5:34 AM CDT us Estella lElis MD PhD LAB BLOOD ORDERABL ES Final Result Performing Organization Address City/State/[facility] Co de Phone Number [facility] Department [place] [address] * (ABNORMAL) eGFR (02/24/2023 8:50 PM CDT) Pathologist [facility] eGFR 54(L) 90 - 130 mL/min/1. 73 m2 [facility] Comment: Interpretive Data Reference Interval Normal ?>/= [...] interpretive data was last reviewed 2021. Blood 02/24/2023 8:50 PM CDT 02/24/2023 9:34 PM CDT us Franca Echevarria DO LAB BLOOD ORDERABLE S Final Result [facility] [place] [address] * Differential, auto (02/24/2023 8:50 PM CDT) Neutrophil abs 3.9 1.7 - 6.5 K/cumm [facility] Imm gran abs 0.1 0.0 - 0.1 K/cumm [facility] Lymphocyte abs 1.6 0.8 - 3.3 K/cumm [facility] Monocyte abs 0.6 0.2 - 0.8 K/cumm [facility] Eosinophil abs 0.3 0.0 - 0.5 K/cumm [facility] Basophil abs 0.1 0.0 - 0.1 K/cumm [facility] Neutrophil pct 60.2 % [facility] Comment: Interpretive Data Percent cell count reference ranges are not reported, since discordance with absolute values may lead to misinterpretation of CBC data. Current Interpretive Data was last revised on 2017. Imm gran pct 1.1 % [facility] Comment: Interpretive Data Percent cell count reference ranges are not reported, since discordance with absolute values may lead to misinterpretation of CBC data. Current Interpretive Data was last revised on 2017. Lymphocyte pct 24.2 % [facility] Comment: Interpretive Data Percent cell count reference ranges are not reported, since discordance with absolute values may lead to misinterpretation of CBC data. Current Interpretive Data was last revised on 2017. Monocyte pct 9.6 % [facility] Comment: Interpretive Data Percent cell count reference ranges are not reported, since discordance with absolute values may lead to misinterpretation of CBC data. Current Interpretive Data was last revised on 2017. Eosinophil pct 4.0 % [facility] Comment: Interpretive Data Percent cell count reference ranges are not reported, since discordance with absolute values may lead to misinterpretation of CBC data. Current Interpretive Data was last revised on 2017. Basophil pct 0.9 % [facility] Comment: Interpretive Data Percent cell count reference ranges are not reported, since discordance with absolute values may lead to misinterpretation of CBC data. Current Interpretive Data was last revised on 2017. Blood 02/24/2023 8:50 PM CDT 02/24/2023 9:33 PM CDT Franca Echevarria DO LAB BLOOD ORDERABLE S Final Result [facility] Department [place] [address] * Vancomycin level trough (02/24/2023 8:50 PM CDT) Vancomycin trough 18.2 10.0 - 20.0 mcg/mL [facility] Blood 02/24/2023 8:50 PM CDT 02/24/2023 9:25 PM CDT Estella Ellis MD PhD LAB BLOOD ORDERABL ES Final Result Performing Organization Address City/[facility]/ZIP Co de Phone Number [facility] [place] [place] [address] * Magnesium (02/24/2023 8:50 PM CDT) [facility] Magnesium 1.9 1.4 - 2.5 mg/dL [facility] Blood 02/24/2023 8:50 PM CDT 02/24/2023 9:34 PM CDT Estella Ellis MD PhD LAB BLOOD ORDERABL ES Final Result Performing Organization Address [facility] [facility] Co de Phone Number [facility] [place] [address] * (ABNORMAL) CBC with auto differential (02/24/2023 8:50 PM CDT) [facility] WBC 6.5 3.8 - 9.9 K/cumm [facility] Hgb 7.4(L) 11.9 - 15.5 g/dL [facility] Hct 23.1(L) 35.6 - 45.5 % [facility] Plt 283 150 - 400 K/cumm [facility] MPV 11.6 9.1 - 12.3 fL [facility] RBC 2.53(L) 3.90 - 5.20 M/cumm [facility] MCV 91.3 81.3 - 96.4 fL [facility] MCH 29.2 27.1 - 33.3 pg [facility] MCHC 32.0(L) 32.3 - 35.7 g/dL [facility] RDW CV 14.1 11.1 - 14.9 % [facility] RDW SD 46.5 35.7 - 48.1 fL [facility] NRBC abs 0.00 0.00 - 0.01 K/cumm [facility] Blood 02/24/2023 8:50 PM CDT 02/24/2023 9:33 PM CDT Estella Ellis MD PhD LAB BLOOD ORDERABL ES Final Result Performing Organization Address City/[facility]/ZIP Co de Phone Number [facility] Department [place] [address] * Basic metabolic panel (02/24/2023 8:50 PM CDT) [facility] Sodium 139 135 - 145 mmol/L [facility] Potassium, pl 4.1 3.3 - 4.9 mmol/L [facility] Chloride 105 97 - 110 mmol/L [facility] CO2 29 22 - 32 mmol/L [facility] Anion gap 5 2 - 15 mmol/L [facility] BUN 6 6 - 25 mg/dL [facility] Creatinine 1.07 0.60 - 1.10 mg/dL [facility] Glucose 93 70 - 199 mg/dL [facility] Comment: Interpretive Data Fasting glucose >/= 126 [...] 2022. Calcium 9.6 8.5 - 10.3 mg/dL [facility] Blood 02/24/2023 8:50 PM CDT 02/24/2023 9:34 PM CDT Estella Ellis MD PhD LAB BLOOD ORDERABL ES Final Result Performing Organization Address [facility] Co de Phone Number [facility] [place] [address] * (ABNORMAL) aPTT (02/24/2023 10:41 AM CDT) aPTT 75(H) 28 - 38 sec [facility] Comment: Interpretive Data Therapeutic heparin range: 60.0 - 94.0 seconds. Based on correlation with therapeutic heparin activity range of 0.3-0.7 Units/mL. Current interpretive data was last revised on 2020. Blood 02/24/2023 10:4 1 AM CDT 02/24/2023 10:59 AM CDT Narrative [facility] - 02/24/2023 11:23 AM CDT Draw STAT PTT 6 hrs after initiation of heparin infusion, draw STAT PTT 6 hours after each dose change, and every 6 hours until 2 consecutive PTTs are within therapeutic range. Once two consecutive PTT's are therapeutic (60-94.9 seconds), then draw PTT every AM until heparin is discontinued. Estella Ellis MD PhD LAB BLOOD ORDERABL ES Final Result [facility] Department [place] [address] * (ABNORMAL) aPTT (02/24/2023 1:04 AM CDT) aPTT 42(H) 28 - 38 sec [facility] Comment: Interpretive Data Therapeutic heparin range: 60.0 - 94.0 seconds. Based on correlation with therapeutic heparin activity range of 0.3-0.7 Units/mL. Current interpretive data was last revised on 2020. Blood 02/24/2023 1:04 AM CDT 02/24/2023 1:37 AM CDT Narrative [facility] - 02/24/2023 2:05 AM CDT Draw STAT PTT 6 hrs after initiation of heparin infusion, draw STAT PTT 6 hours after each dose change, and every 6 hours until 2 consecutive PTTs are within therapeutic range. Once two consecutive PTT's are therapeutic (60-94.9 seconds), then draw PTT every AM until heparin is discontinued. us Estella Ellis MD PhD LAB BLOOD ORDERABL ES Final Result Performing Organization Address [facility] de Phone Number [facility] [place] [address] * Digoxin level (02/24/2023 1:04 AM CDT) Digoxin 0.8 0.5 - 0.8 ng/mL [facility] Comment: Interpretive data Digoxin concentrations as high as 2 ng/mL may be useful in treating atrial fibrillation. Current interpretive data was last reviewed on 05/18/2013. Blood 02/24/2023 1:04 AM CDT 02/24/2023 1:33 AM CDT Estella Ellis MD PhD LAB BLOOD ORDERABL ES Final Result Performing Organization Address [facility] de Phone Number [facility] [place] [address] * (ABNORMAL) eGFR (02/23/2023 7:20 PM CDT) eGFR 64(L) 90 - 130 mL/min/1. 73 m2 [facility] Comment: Interpretive Data Reference Interval Normal ?>/= 90 mL/min/1.73m2 Mildly decreased* ? 60 - 89 mL/min/1.73m2 Mildly to moderately decreased ?45 - 59 mL/min/1.73m2 Moderately to severely decreased ??30 - 44 mL/min/1.73m2 Severely decreased ?15 - 29 mL/min/1.73m2 Kidney Failure ?< 15 ??mL/min/1.73m2 *Relative to young adult level Estimated glomerular filtration rate is determined by the 2021 CKD-EPI equation recommended by the National Kidney [...] interpretive data was last reviewed 2021. Blood 02/23/2023 7:20 PM CDT 02/23/2023 8:01 PM CDT us Franca Echevarria DO LAB BLOOD ORDERABLE S Final Result [facility] Department [place] [address] * Differential, auto (02/23/2023 7:20 PM CDT) Neutrophil abs 4.1 1.7 - 6.5 K/cumm [facility] Imm gran abs 0.1 0.0 - 0.1 K/cumm [facility] Lymphocyte abs 2.2 0.8 - 3.3 K/cumm [facility] Monocyte abs 0.8 0.2 - 0.8 K/cumm [facility] Eosinophil abs 0.4 0.0 - 0.5 K/cumm [facility] Basophil abs 0.0 0.0 - 0.1 K/cumm [facility] Neutrophil pct 53.6 % [facility] Comment: Interpretive Data Percent cell count reference ranges are not reported, since discordance with absolute values may lead to misinterpretation of CBC data. Current Interpretive Data was last revised on 2017. Imm gran pct 1.7 % [facility] Comment: Interpretive Data Percent cell count reference ranges are not reported, since discordance with absolute values may lead to misinterpretation of CBC data. Current Interpretive Data was last revised on 2017. Lymphocyte pct 28.4 % [facility] Comment: Interpretive Data Percent cell count reference ranges are not reported, since discordance with absolute values may lead to misinterpretation of CBC data. Current Interpretive Data was last revised on 2017. Monocyte pct 10.8 % [facility] Comment: Interpretive Data Percent cell count reference ranges are not reported, since discordance with absolute values may lead to misinterpretation of CBC data. Current Interpretive Data was last revised on 2017. Eosinophil pct 5.0 % [facility] Comment: Interpretive Data Percent cell count reference ranges are not reported, since discordance with absolute values may lead to misinterpretation of CBC data. Current Interpretive Data was last revised on 2017. Basophil pct 0.5 % [facility] Comment: Interpretive Data Percent cell count reference ranges are not reported, since discordance with absolute values may lead to misinterpretation of CBC data. Current Interpretive Data was last revised on 2017. Blood 02/23/2023 7:20 PM CDT 02/23/2023 8:01 PM CDT Franca Echevarria DO LAB BLOOD ORDERABLE S Final Result [facility] [place] [address] * Magnesium (02/23/2023 7:20 PM CDT) Pathologist [facility] Magnesium 2.0 1.4 - 2.5 mg/dL [facility] Blood 02/23/2023 7:20 PM CDT 02/23/2023 8:01 PM CDT Estella Ellis MD PhD LAB BLOOD ORDERABL ES Final Result [facility] [place] [address] * (ABNORMAL) CBC with auto differential (02/23/2023 7:20 PM CDT) WBC 7.6 3.8 - 9.9 K/cumm [facility] Hgb 8.0(L) 11.9 - 15.5 g/dL [facility] Hct 25.2(L) 35.6 - 45.5 % [facility] Plt 310 150 - 400 K/cumm [facility] MPV 12.3 9.1 - 12.3 fL [facility] RBC 2.76(L) 3.90 - 5.20 M/cumm [facility] MCV 91.3 81.3 - 96.4 fL [facility] MCH 29.0 27.1 - 33.3 pg [facility] MCHC 31.7(L) 32.3 - 35.7 g/dL [facility] RDW CV 14.3 11.1 - 14.9 % [facility] RDW SD 47.6 35.7 - 48.1 fL [facility] NRBC abs 0.03(H) 0.00 - 0.01 K/cumm [facility] Blood 02/23/2023 7:20 PM CDT 02/23/2023 8:01 PM CDT Estella Ellis MD PhD LAB BLOOD ORDERABL ES Final Result [facility] Department [place] [address] * Basic metabolic panel (02/23/2023 7:20 PM CDT) Sodium 141 135 - 145 mmol/L [facility] Potassium, pl 4.5 3.3 - 4.9 mmol/L [facility] Chloride 105 97 - 110 mmol/L [facility] CO2 28 22 - 32 mmol/L [facility] Anion gap 8 2 - 15 mmol/L [facility] BUN 6 6 - 25 mg/dL [facility] Creatinine 0.93 0.60 - 1.10 mg/dL [facility] Glucose 104 70 - 199 mg/dL [facility] Comment: Interpretive Data Fasting glucose >/= 126 [...] interpretive data was last revised 2022. Calcium 9.4 8.5 - 10.3 mg/dL [facility] Blood 02/23/2023 7:20 PM CDT 02/23/2023 8:01 PM CDT Estella Ellis MD PhD LAB BLOOD ORDERABL ES Final Result Performing Organization Address [facility] Co de Phone Number [facility] [place] [address] * (ABNORMAL) aPTT (02/23/2023 6:27 PM CDT) aPTT 70(H) 28 - 38 sec [facility] Comment: Interpretive Data Therapeutic heparin range: 60.0 - 94.0 seconds. Based on correlation with therapeutic heparin activity range of 0.3-0.7 Units/mL. Current interpretive data was last revised on 2020. Blood 02/23/2023 6:27 PM CDT 02/23/2023 6:39 PM CDT Narrative [facility] - 02/23/2023 7:02 PM CDT Draw STAT PTT 6 hrs after initiation of heparin infusion, draw STAT PTT 6 hours after each dose change, and every 6 hours until 2 consecutive PTTs are within therapeutic range. Once two consecutive PTT's are therapeutic (60-94.9 seconds), then draw PTT every AM until heparin is discontinued. Estella Ellis MD PhD LAB BLOOD ORDERABL ES Final Result Performing Organization Address City/[facility]/ZIP Co de Phone Number [facility] [place] [address] * (ABNORMAL) aPTT (02/23/2023 11:28 AM CDT) Pathologist [facility] aPTT 113(H) 28 - 38 sec [facility] Comment: No clot detected in sample Repeated and verified - [id number] - 02/23/23, 12:14 PM Interpretive Data Therapeutic heparin range: 60.0 - 94.0 seconds. Based on correlation with therapeutic heparin activity range of 0.3-0.7 Units/mL. Current interpretive data was last revised on 2020. Blood 02/23/2023 11:2 8 AM CDT 02/23/2023 11:36 AM CDT Narrative [facility] - 02/23/2023 12:15 PM CDT Draw STAT PTT 6 hrs after initiation of heparin infusion, draw STAT PTT 6 hours after each dose change, and every 6 hours until 2 consecutive PTTs are within therapeutic range. Once two consecutive PTT's are therapeutic (60-94.9 seconds), then draw PTT every AM until heparin is discontinued. Estella Ellis MD PhD LAB BLOOD ORDERABL ES Final Result [facility] Department [place] [address] * (ABNORMAL) Hepatic function panel, serum (02/23/2023 3:08 AM CDT) [facility] Bilirubin, total 0.3 0.1 - 1.2 mg/dL [facility] Bilirubin, direct <0.2 0.1 - 0.3 mg/dL [facility] Protein, sr 5.9(L) 6.2 - 8.2 g/dL [facility] Albumin 2.8(L) 3.5 - 5.0 g/dL [facility] Alk phos 98 40 - 130 Units/L [facility] ALT 17 7 - 45 Units/L [facility] AST 21 10 - 45 Units/L [facility] Blood 02/23/2023 3:08 AM CDT 02/23/2023 3:27 AM CDT Estella Ellis MD PhD LAB BLOOD ORDERABL ES Final Result Performing Organization Address City/[facility]/ZIP Co de Phone Number [facility] Department [place] [address] * Magnesium (02/23/2023 3:08 AM CDT) Pathologist [facility] Magnesium 2.4 1.4 - 2.5 mg/dL [facility] Blood 02/23/2023 3:08 AM CDT 02/23/2023 3:27 AM CDT Estella Ellis MD PhD LAB BLOOD ORDERABL ES Final Result Performing Organization Address [facility] Co de Phone Number [facility] Department [place] [address] * (ABNORMAL) Basic metabolic panel (02/23/2023 3:08 AM CDT) [facility] Sodium 139 135 - 145 mmol/L [facility] Potassium, pl 3.9 3.3 - 4.9 mmol/L [facility] Chloride 104 97 - 110 mmol/L [facility] CO2 27 22 - 32 mmol/L [facility] Anion gap 8 2 - 15 mmol/L [facility] BUN 5(L) 6 - 25 mg/dL [facility] Creatinine 0.95 0.60 - 1.10 mg/dL [facility] Glucose 148 70 - 199 mg/dL [facility] Comment: Interpretive Data Fasting glucose >/= 126 [...] 2022. Calcium 9.2 8.5 - 10.3 mg/dL [facility] Blood 02/23/2023 3:08 AM CDT 02/23/2023 3:21 AM CDT us Estella Ellis MD PhD LAB BLOOD ORDERABL ES Final Result [facility] Department [place] [address] * (ABNORMAL) eGFR (02/23/2023 3:08 AM CDT) eGFR 62(L) 90 - 130 mL/min/1. 73 m2 [facility] Comment: Interpretive Data Reference Interval Normal ?>/= [...] interpretive data was last reviewed 2021. Blood 02/23/2023 3:08 AM CDT 02/23/2023 3:27 AM CDT us Estella Ellis MD PhD LAB BLOOD ORDERABL ES Final Result Performing Organization Address [facility] de Phone Number [facility] [place] [address] * (ABNORMAL) aPTT (02/23/2023 3:08 AM CDT) aPTT 114(H) 28 - 38 sec [facility] Comment: Interpretive Data Therapeutic heparin range: 60.0 - 94.0 seconds. Based on correlation with therapeutic heparin activity range of 0.3-0.7 Units/mL. Current interpretive data was last revised on 2020. Blood 02/23/2023 3:0 8 AM CDT 02/23/2023 3:28 AM CDT Narrative [facility] - 02/23/2023 4:09 AM CDT Draw STAT PTT 6 hrs after initiation of heparin infusion, draw STAT PTT 6 hours after each dose change, and every 6 hours until 2 consecutive PTTs are within therapeutic range. Once two consecutive PTT's are therapeutic (60-94.9 seconds), then draw PTT every AM until heparin is discontinued. Estella Ellis MD PhD LAB BLOOD ORDERABL ES Final Result Performing Organization Address [facility] de Phone Number [facility] [place] [address] * (ABNORMAL) Digoxin level (02/23/2023 3:08 AM CDT) Pathologist [facility] Digoxin 1.0(H) 0.5 - 0.8 ng/mL [facility] Comment: Interpretive data Digoxin concentrations as high as 2 ng/mL may be useful in treating atrial fibrillation. Current interpretive data was last reviewed on 05/18/2013. Blood 02/23/2023 3:08 AM CDT 02/23/2023 3:21 AM CDT Estella Ellis MD PhD LAB BLOOD ORDERABL ES Final Result Performing Organization Address [facility]/ZIP Co de Phone Number [facility] [place] [address] * (ABNORMAL) Ferritin (02/23/2023 3:08 AM CDT) Ferritin 299(H) 13 - 150 ng/mL [facility] Blood 02/23/2023 3:08 AM CDT 02/23/2023 3:21 AM CDT Franca Affinityi GiacomLEDo DO LAB BLOOD ORDERABLE S Final Result Performing Organization Address City/State/[facility] [place] [address] * (ABNORMAL) Iron profile w/ IBC (02/23/2023 3:08 AM CDT) Iron 24(L) 35 - 145 mcg/dL [facility] TIBC 192(L) 250 - 400 mcg/dL [facility] Transferrin saturation 13(L) 20 - 50 % [facility] Blood 02/23/2023 3:08 AM CDT 02/23/2023 3:21 AM CDT Franca [email or web address] DO LAB BLOOD ORDERABLE S Final Result Performing Organization Address City/[facility] Co de Phone Number [facility] [place] [address] * (ABNORMAL) aPTT (02/22/2023 8:08 PM CDT) aPTT 97(H) 28 - 38 sec [facility] Comment: Interpretive Data Therapeutic heparin range: 60.0 - 94.0 seconds. Based on correlation with therapeutic heparin activity range of 0.3-0.7 Units/mL. Current interpretive data was last revised on 2020. Blood 02/22/2023 8:08 PM CDT 02/22/2023 8:28 PM CDT Agusto HALL - 02/22/2023 8:36 PM CDT Draw STAT PTT 6 hrs after initiation of heparin infusion, draw STAT PTT 6 hours after each dose change, and every 6 hours until 2 consecutive PTTs are within therapeutic range. Once two consecutive PTT's are therapeutic (60-94.9 seconds), then draw PTT every AM until heparin is discontinued. us Estella Ellis MD PhD LAB BLOOD ORDERABL ES Final Result [facility] Department [place] [address] * (ABNORMAL) eGFR (02/22/2023 8:06 PM CDT) eGFR 61(L) 90 - 130 mL/min/1. 73 m2 [facility] Comment: Interpretive Data Reference Interval Normal ?>/= [...] interpretive data was last reviewed 2021. Blood 02/22/2023 8:06 PM CDT 02/22/2023 8:24 PM CDT us Franca Echevarria DO LAB BLOOD ORDERABLE S Final Result [facility] Department [place] [address] * (ABNORMAL) Differential, auto (02/22/2023 8:06 PM CDT) Pathologist [facility] Neutrophil abs 3.3 1.7 - 6.5 K/cumm [facility] Imm gran abs 0.2(H) 0.0 - 0.1 K/cumm [facility] Lymphocyte abs 2.0 0.8 - 3.3 K/cumm [facility] Monocyte abs 0.7 0.2 - 0.8 K/cumm [facility] Eosinophil abs 0.4 0.0 - 0.5 K/cumm [facility] Basophil abs 0.0 0.0 - 0.1 K/cumm [facility] Neutrophil pct 49.9 % [facility] Comment: Interpretive Data Percent cell count reference ranges are not reported, since discordance with absolute values may lead to misinterpretation of CBC data. Current Interpretive Data was last revised on 2017. Imm gran pct 2.9 % [facility] Comment: Interpretive Data Percent cell count reference ranges are not reported, since discordance with absolute values may lead to misinterpretation of CBC data. Current Interpretive Data was last revised on 2017. Lymphocyte pct 30.3 % [facility] Comment: Interpretive Data Percent cell count reference ranges are not reported, since discordance with absolute values may lead to misinterpretation of CBC data. Current Interpretive Data was last revised on 2017. Monocyte pct 10.2 % [facility] Comment: Interpretive Data Percent cell count reference ranges are not reported, since discordance with absolute values may lead to misinterpretation of CBC data. Current Interpretive Data was last revised on 2017. Eosinophil pct 6.2 % [facility] Comment: Interpretive Data Percent cell count reference ranges are not reported, since discordance with absolute values may lead to misinterpretation of CBC data. Current Interpretive Data was last revised on 2017. Basophil pct 0.5 % [facility] Comment: Interpretive Data Percent cell count reference ranges are not reported, since discordance with absolute values may lead to misinterpretation of CBC data. Current Interpretive Data was last revised on 2017. Blood 02/22/2023 8:06 PM CDT 02/22/2023 8:24 PM CDT us Franca Echevarria DO LAB BLOOD ORDERABLE S Final Result Performing Organization Address City/[facility]/ZIP Co de Phone Number [facility] [place] [address] * Magnesium (02/22/2023 8:06 PM CDT) Pathologist [facility] Magnesium 1.8 1.4 - 2.5 mg/dL [facility] Blood 02/22/2023 8:06 PM CDT 02/22/2023 8:24 PM CDT Estella Ellis MD PhD LAB BLOOD ORDERABL ES Final Result Performing Organization Address City/[facility]/ZIP Co de Phone Number [facility] [place] [address] * (ABNORMAL) CBC with auto differential (02/22/2023 8:06 PM CDT) Pathologist [facility] WBC 6.6 3.8 - 9.9 K/cumm [facility] Hgb 7.7(L) 11.9 - 15.5 g/dL [facility] Hct 24.3(L) 35.6 - 45.5 % [facility] Plt 282 150 - 400 K/cumm [facility] MPV 11.8 9.1 - 12.3 fL [facility] RBC 2.67(L) 3.90 - 5.20 M/cumm [facility] MCV 91.0 81.3 - 96.4 fL [facility] MCH 28.8 27.1 - 33.3 pg [facility] MCHC 31.7(L) 32.3 - 35.7 g/dL [facility] RDW CV 14.2 11.1 - 14.9 % [facility] RDW SD 47.4 35.7 - 48.1 fL [facility] NRBC abs 0.00 0.00 - 0.01 K/cumm [facility] Blood 02/22/2023 8:06 PM CDT 02/22/2023 8:24 PM CDT us Estella Ellis MD PhD LAB BLOOD ORDERABL ES Final Result [facility] [place] [address] * (ABNORMAL) Basic metabolic panel (02/22/2023 8:06 PM CDT) Sodium 139 135 - 145 mmol/L [facility] Potassium, pl 3.7 3.3 - 4.9 mmol/L [facility] Chloride 103 97 - 110 mmol/L [facility] CO2 27 22 - 32 mmol/L [facility] Anion gap 9 2 - 15 mmol/L [facility] BUN 5(L) 6 - 25 mg/dL [facility] Creatinine 0.96 0.60 - 1.10 mg/dL [facility] Glucose 153 70 - 199 mg/dL [facility] Comment: Interpretive Data Fasting glucose >/= 126 [...] interpretive data was last revised 2022. Calcium 9.0 8.5 - 10.3 mg/dL [facility] Blood 02/22/2023 8:06 PM CDT 02/22/2023 8:24 PM CDT Estella Ellis MD PhD LAB BLOOD ORDERABL ES Final Result [facility] [place] [address] * Blood culture Blood (02/22/2023 1:54 PM CDT) Report Final Report: No growth [facility] Blood 02/22/2023 1:54 PM CDT 02/22/2023 2:14 PM CDT Narrative VALENTE RAMIREZ - 02/26/2023 4:00 PM CDT From a different site than #1. Collection->Peripheral 1. ?Blood cultures are incubated for 4 days on a continuously monitored blood culture system. The first report of a negative culture is issued within 24 hours of receipt of the specimen in the laboratory. 2. ?Positive culture results are reported as soon as they are detected. 3. ?The most important factor for detection of microbes in the setting of bloodstream infection is the volume of blood submitted for culture. Failure to collect an optimal blood volume can result in false negative blood cultures. For pediatric patients, the recommended blood volume to collect is 1 mL of blood per year of patient age (up to 20 mL) per blood culture set. For adult patients, 20 mL of blood, divided equally between aerobic and anaerobic blood culture bottles, is recommended for each blood culture set. 4. ?For blood cultures with Gram-positive cocci, a rapid molecular test for organism identification may be performed using the Servoyigene Gram-Positive Blood Culture Assay. This assay detects microbial DNA in positive blood culture broth via hybridization of target DNA to capture oligonucleotides on a microarray. This assay has been cleared by the [place] Food and Drug Administration and its performance characteristics have been verified by the [facility]. 5. ?For questions about this culture, contact the Microbiology Laboratory at [phone]. Interpretive data was last revised on 2019. Fracna Sanchezsheripushpa Goldbergmino DO LAB MICROBIOLOGY - GENERAL ORDERABLES Final Result [facility]ALL [facility] Department [place] [address] * Blood culture Blood (02/22/2023 1:39 PM CDT) Report Final Report: No growth [facility] RAMIREZ Blood 02/22/2023 1:39 PM CDT 02/22/2023 2:14 PM CDT Narrative [facility]ENTE HALL - 02/26/2023 4:00 PM CDT Collection->Peripheral 1. ?Blood cultures are incubated for 4 days on a continuously monitored blood culture system. The first report of a negative culture is issued within 24 hours of receipt of the specimen in the laboratory. 2. ?Positive culture results are reported as soon as they are detected. 3. ?The most important factor for detection of microbes in the setting of bloodstream infection is the volume of blood submitted for culture. Failure to collect an optimal blood volume can result in false negative blood cultures. For pediatric patients, the recommended blood volume to collect is 1 mL of blood per year of patient age (up to 20 mL) per blood culture set. For adult patients, 20 mL of blood, divided equally between aerobic and anaerobic blood culture bottles, is recommended for each blood culture set. 4. ?For blood cultures with Gram-positive cocci, a rapid molecular test for organism identification may be performed using the Servoyigene Gram-Positive Blood Culture Assay. This assay detects microbial DNA in positive blood culture broth via hybridization of target DNA to capture oligonucleotides on a microarray. This assay has been cleared by the [place] Food and Drug Administration and its performance characteristics have been verified by the [facility]. 5. ?For questions about this culture, contact the Microbiology Laboratory at [phone]. Interpretive data was last revised on 2019. Franca Krystinpushpa Selenaleopoldoo DO LAB MICROBIOLOGY - GENERAL ORDERABLES Final Result [facility] [place] [address] * POCT glucose (02/22/2023 11:40 AM CDT) Glucose, POC 115 70 - 199 mg/dL [facility] Blood 02/22/2023 11:4 0 AM CDT 02/22/2023 11:40 AM CDT Franca Dugolenski Giacomino DO LAB POCT ORDERABLES - DEVICE Final Result Performing Organization Address [facility] Co de Phone Number [facility] [place] [address] * POCT glucose (02/22/2023 7:35 AM CDT) Glucose, POC 126 70 - 199 mg/dL [facility] Blood 02/22/2023 7:35 AM CDT 02/22/2023 7:35 AM CDT Franca Dugolenski Giacomino DO LAB POCT ORDERABLES - DEVICE Final Result Performing Organization Address [facility] Co de Phone Number [facility] [place] [address] * (ABNORMAL) Digoxin level (02/22/2023 4:23 AM CDT) Digoxin 1.0(H) 0.5 - 0.8 ng/mL [facility] Comment: Interpretive data Digoxin concentrations as high as 2 ng/mL may be useful in treating atrial fibrillation. Current interpretive data was last reviewed on 05/18/2013. Blood 02/22/2023 4:23 AM CDT 02/22/2023 4:45 AM CDT us Estella Ellis MD PhD LAB BLOOD ORDERABL ES Final Result Performing Organization Address [facility] de Phone Number [facility] Department [place] [address] * (ABNORMAL) aPTT (02/21/2023 8:36 PM CDT) [facility] aPTT 83(H) 28 - 38 sec [facility] Comment: Interpretive Data Therapeutic heparin range: 60.0 - 94.0 seconds. Based on correlation with therapeutic heparin activity range of 0.3-0.7 Units/mL. Current interpretive data was last revised on 2020. Blood 02/21/2023 8:36 PM CDT 02/21/2023 9:04 PM CDT Narrative [facility] - 02/21/2023 9:26 PM CDT Draw STAT PTT 6 hrs after initiation of heparin infusion, draw STAT PTT 6 hours after each dose change, and every 6 hours until 2 consecutive PTTs are within therapeutic range. Once two consecutive PTT's are therapeutic (60-94.9 seconds), then draw PTT every AM until heparin is discontinued. us Estella Ellis MD PhD LAB BLOOD ORDERABL ES Final Result Performing Organization Address [facility] de Phone Number [facility] Department [place] [address] * (ABNORMAL) eGFR (02/21/2023 8:35 PM CDT) [facility] eGFR 66(L) 90 - 130 mL/min/1. 73 m2 [facility] Comment: Interpretive Data Reference Interval Normal ?>/= [...] interpretive data was last reviewed 2021. Blood 02/21/2023 8:35 PM CDT 02/21/2023 9:10 PM CDT us Franca Echevarria DO LAB BLOOD ORDERABLE S Final Result [facility] Department [place] [address] * Differential, auto (02/21/2023 8:35 PM CDT) Neutrophil abs 4.3 1.7 - 6.5 K/cumm [facility] Imm gran abs 0.1 0.0 - 0.1 K/cumm [facility] Lymphocyte abs 1.6 0.8 - 3.3 K/cumm [facility] Monocyte abs 0.8 0.2 - 0.8 K/cumm [facility] Eosinophil abs 0.3 0.0 - 0.5 K/cumm [facility] Basophil abs 0.0 0.0 - 0.1 K/cumm [facility] Neutrophil pct 59.9 % [facility] Comment: Interpretive Data Percent cell count reference ranges are not reported, since discordance with absolute values may lead to misinterpretation of CBC data. Current Interpretive Data was last revised on 2017. Imm gran pct 1.8 % [facility] Comment: Interpretive Data Percent cell count reference ranges are not reported, since discordance with absolute values may lead to misinterpretation of CBC data. Current Interpretive Data was last revised on 2017. Lymphocyte pct 22.5 % [facility] Comment: Interpretive Data Percent cell count reference ranges are not reported, since discordance with absolute values may lead to misinterpretation of CBC data. Current Interpretive Data was last revised on 2017. Monocyte pct 11.4 % [facility] Comment: Interpretive Data Percent cell count reference ranges are not reported, since discordance with absolute values may lead to misinterpretation of CBC data. Current Interpretive Data was last revised on 2017. Eosinophil pct 4.0 % [facility] Comment: Interpretive Data Percent cell count reference ranges are not reported, since discordance with absolute values may lead to misinterpretation of CBC data. Current Interpretive Data was last revised on 2017. Basophil pct 0.4 % [facility] Comment: Interpretive Data Percent cell count reference ranges are not reported, since discordance with absolute values may lead to misinterpretation of CBC data. Current Interpretive Data was last revised on 2017. Blood 02/21/2023 8:35 PM CDT 02/21/2023 9:10 PM CDT us Franca Echevarria DO LAB BLOOD ORDERABLE S Final Result [facility] Department [place] [address] * Magnesium (02/21/2023 8:35 PM CDT) Magnesium 1.8 1.4 - 2.5 mg/dL [facility] Blood 02/21/2023 8:35 PM CDT 02/21/2023 9:10 PM CDT us Estella Ellis MD PhD LAB BLOOD ORDERABL ES Final Result Performing Organization Address City/[facility]/ZIP Co de Phone Number [facility] Department [place] [address] * (ABNORMAL) CBC with auto differential (02/21/2023 8:35 PM CDT) [facility] WBC 7.2 3.8 - 9.9 K/cumm [facility] Hgb 7.8(L) 11.9 - 15.5 g/dL [facility] Hct 24.2(L) 35.6 - 45.5 % [facility] Plt 287 150 - 400 K/cumm [facility] MPV 11.8 9.1 - 12.3 fL [facility] RBC 2.63(L) 3.90 - 5.20 M/cumm [facility] MCV 92.0 81.3 - 96.4 fL [facility] MCH 29.7 27.1 - 33.3 pg [facility] MCHC 32.2(L) 32.3 - 35.7 g/dL [facility] RDW CV 14.4 11.1 - 14.9 % [facility] RDW SD 48.3(H) 35.7 - 48.1 fL [facility] NRBC abs 0.00 0.00 - 0.01 K/cumm [facility] Blood 02/21/2023 8:35 PM CDT 02/21/2023 9:10 PM CDT us Estella Ellis MD PhD LAB BLOOD ORDERABL ES Final Result [facility] Department [place] [address] * Basic metabolic panel (02/21/2023 8:35 PM CDT) [facility] Sodium 141 135 - 145 mmol/L [facility] Potassium, pl 4.0 3.3 - 4.9 mmol/L [facility] Chloride 106 97 - 110 mmol/L [facility] CO2 27 22 - 32 mmol/L [facility] Anion gap 8 2 - 15 mmol/L [facility] BUN 7 6 - 25 mg/dL [facility] Creatinine 0.90 0.60 - 1.10 mg/dL [facility] Glucose 111 70 - 199 mg/dL [facility] Comment: Interpretive Data Fasting glucose >/= 126 [...] interpretive data was last revised 2022. Calcium 9.5 8.5 - 10.3 mg/dL [facility] Blood 02/21/2023 8:35 PM CDT 02/21/2023 9:10 PM CDT Estella Ellis MD PhD LAB BLOOD ORDERABL ES Final Result [facility] Department [place] [address] * POCT glucose (02/21/2023 4:11 PM CDT) [facility] Glucose, POC 108 70 - 199 mg/dL [facility] Blood 02/21/2023 4:11 PM CDT 02/21/2023 4:11 PM CDT us Franca Echevarria DO LAB POCT ORDERABLES - DEVICE Final Result [facility] Department [place] [address] * CT Entire Upper Extremity Left W Contrast (02/21/2023 2:40 PM CDT) Anatomical Region Laterality Modality Upper Extremities Left Computed Tomog lucina 02/21/2023 3:49 PM CDT Impressions 02/21/2023 4:51 PM CDT 1. ??Cellulitis and suspected phlegmonous changes of the left dorsolateral elbow soft tissues. ??No focal fluid collection or CT evidence of osteomyelitis. Dictated by: Ming Macias MD The radiology attending physician has personally reviewed this study, and had reviewed and/or edited this written report and agrees with it. Electronically signed by: Goyo Ford MD Narrative 02/21/2023 4:51 PM CDT EXAM: 1. ??CT ENTIRE UPPER EXTREMITY LEFT W CONTRAST HISTORY: Soft tissue infection suspected, forearm, initial exam. Soft tissue infection suspected, humerus, initial exam. LUE cellulitis/myositis with small fluid accumulation despite IV abx; ACCS evaluating for operative management. TECHNIQUE: Axial CT of the entire left upper extremity was performed with the use of 94 mL of intravenous Optiray 350 contrast. ??Sagittal and coronal reformats were generated. COMPARISON: Left upper extremity and shoulder ultrasound, 02/21/2023. FINDINGS: Contrast enhanced CT imaging of the entire left upper extremity demonstrates cutaneous thickening with underlying subcutaneous fluid and stranding overlying the dorsolateral aspect of the elbow. ??No drainable peripherally enhancing abscess is seen. ??No definite extension into the deep muscular fascia or joint. ??No elbow joint effusion. No focal osteopenia, periosteal reaction, or cortical erosive changes are seen to suggest osteomyelitis. No acute fracture or dislocation is seen. Alignment is anatomic. ?? A left upper extremity peripherally inserted venous catheter is noted. The visualized left lung demonstrates a small left pleural effusion with associated atelectasis of the left lower lobe. Incomplete visualization of peripheral areas of nodularity in the left lung suspicious for septic emboli, better visualized on recent CT imaging of the chest. ??Left perinephric fluid and simple renal cysts are incompletely visualized. Procedure Note Goyo Ford MD - 02/21/2023 EXAM: 1. CT ENTIRE UPPER EXTREMITY LEFT W CONTRAST HISTORY: Soft tissue infection suspected, forearm, initial exam. Soft tissue infection suspected, humerus, initial exam. LUE cellulitis/myositis with small fluid accumulation despite IV abx; ACCS evaluating for operative management. TECHNIQUE: Axial CT of the entire left upper extremity was performed with the use of 94 mL of intravenous Optiray 350 contrast. Sagittal and coronal reformats were generated. COMPARISON: Left upper extremity and shoulder ultrasound, 02/21/2023. FINDINGS: Contrast enhanced CT imaging of the entire left upper extremity demonstrates cutaneous thickening with underlying subcutaneous fluid and stranding overlying the dorsolateral aspect of the elbow. No drainable peripherally enhancing abscess is seen. No definite extension into the deep muscular fascia or joint. No elbow joint effusion. No focal osteopenia, periosteal reaction, or cortical erosive changes are seen to suggest osteomyelitis. No acute fracture or dislocation is seen. Alignment is anatomic. A left upper extremity peripherally inserted venous catheter is noted. The visualized left lung demonstrates a small left pleural effusion with associated atelectasis of the left lower lobe. Incomplete visualization of peripheral areas of nodularity in the left lung suspicious for septic emboli, better visualized on recent CT imaging of the chest. Left perinephric fluid and simple renal cysts are incompletely visualized. IMPRESSION: 1. Cellulitis and suspected phlegmonous changes of the left dorsolateral elbow soft tissues. No focal fluid collection or CT evidence of osteomyelitis. Dictated by: Ming Macias MD The radiology attending physician has personally reviewed this study, and had reviewed and/or edited this written report and agrees with it. Electronically signed by: Goyo Ford MD Franca Dubeni Giacomino DO IMG CT PROCEDURES F inal Result * POCT glucose (02/21/2023 7:36 AM CDT) [facility] Signature Glucose, POC 115 70 - 199 mg/dL [facility] RAMIREZ Blood 02/21/2023 7:36 AM CDT 02/21/2023 7:36 AM CDT Francakrysten Rodriguezi Giacomino DO LAB POCT ORDERABLES - DEVICE Final Result [facility] Department [place] [address] * US Upper Extremity Left Limited (02/21/2023 6:27 AM CDT) Anatomical Region Laterality Modality Upper Extremities Left Ultrasound 02/21/2023 9:13 AM CDT Impressions 02/21/2023 9:15 AM CDT 1. Cellulitis with underlying myositis 2. Rounded areas of hypoechogenicity, which may represent small fluid without a drainable collection. :: Dictated by: Syed Guadalupe MD The radiology attending physician has personally reviewed this study, and had reviewed and/or edited this written report and agrees with it. Electronically signed by: Santino Robledo M.D. Narrative 02/21/2023 9:15 AM CDT EXAMINATION: US UPPER EXTREMITY LEFT LIMITED HISTORY: 77-year-old female with proximal atrial fibrillation with rapid ventricular response, septic emboli, MRSA bacteremia and cellulitis. ??This exam was requested to evaluate for cellulitis of the left upper extremity. COMPARISON: None FINDINGS: There is subcutaneous, soft tissue edema at the palpable area of concern. ??There are linear echogenicities within the underlying muscle (image 170). ??There are multiple round hypoechogenicities in the subcutaneous tissues of the largest of which measures up to 4 mm (image 100). Procedure Note Santino Robledo MD - 02/21/2023 EXAMINATION: US UPPER EXTREMITY LEFT LIMITED HISTORY: 77-year-old female with proximal atrial fibrillation with rapid ventricular response, septic emboli, MRSA bacteremia and cellulitis. This exam was requested to evaluate for cellulitis of the left upper extremity. COMPARISON: None FINDINGS: There is subcutaneous, soft tissue edema at the palpable area of concern. There are linear echogenicities within the underlying muscle (image 170). There are multiple round hypoechogenicities in the subcutaneous tissues of the largest of which measures up to 4 mm (image 100). IMPRESSION: 1. Cellulitis with underlying myositis 2. Rounded areas of hypoechogenicity, which may represent small fluid without a drainable collection. :: Dictated by: Syed Guadalupe MD The radiology attending physician has personally reviewed this study, and had reviewed and/or edited this written report and agrees with it. Electronically signed by: Santino Robledo M.D. us Fracna Waltersacomintali DO IMG US PROCEDURES F inal Result * (ABNORMAL) aPTT (02/21/2023 6:14 AM CDT) aPTT 85(H) 28 - 38 sec [facility] Comment: Interpretive Data Therapeutic heparin range: 60.0 - 94.0 seconds. Based on correlation with therapeutic heparin activity range of 0.3-0.7 Units/mL. Current interpretive data was last revised on 2020. Blood 02/21/2023 6:14 AM CDT 02/21/2023 6:31 AM CDT Narrative [facility] - 02/21/2023 6:54 AM CDT Draw STAT PTT 6 hrs after initiation of heparin infusion, draw STAT PTT 6 hours after each dose change, and every 6 hours until 2 consecutive PTTs are within therapeutic range. Once two consecutive PTT's are therapeutic (60-94.9 seconds), then draw PTT every AM until heparin is discontinued. Estella Ellis MD PhD LAB BLOOD ORDERABL ES Final Result Performing Organization Address City/[facility] Co de Phone Number [facility] Department [place] [address] * (ABNORMAL) Digoxin level (02/21/2023 6:14 AM CDT) [facility] Digoxin 1.1(H) 0.5 - 0.8 ng/mL [facility] Comment: Interpretive data Digoxin concentrations as high as 2 ng/mL may be useful in treating atrial fibrillation. Current interpretive data was last reviewed on 05/18/2013. Blood 02/21/2023 6:14 AM CDT 02/21/2023 6:35 AM CDT Estella Ellis MD PhD LAB BLOOD ORDERABL ES Final Result Performing Organization Address City/[facility] Co de Phone Number [facility] [place] [place] [address] * (ABNORMAL) aPTT (02/21/2023 12:05 AM CDT) aPTT 73(H) 28 - 38 sec [facility] Comment: Interpretive Data Therapeutic heparin range: 60.0 - 94.0 seconds. Based on correlation with therapeutic heparin activity range of 0.3-0.7 Units/mL. Current interpretive data was last revised on 2020. Blood 02/21/2023 12:0 5 AM CDT 02/21/2023 12:19 AM CDT Narrative [facility] - 02/21/2023 12:47 AM CDT Draw STAT PTT 6 hrs after initiation of heparin infusion, draw STAT PTT 6 hours after each dose change, and every 6 hours until 2 consecutive PTTs are within therapeutic range. Once two consecutive PTT's are therapeutic (60-94.9 seconds), then draw PTT every AM until heparin is discontinued. Estella Ellis MD PhD LAB BLOOD ORDERABL ES Final Result [facility] Department [place] [address] * (ABNORMAL) aPTT (02/20/2023 10:56 PM CDT) aPTT 125(H) 28 - 38 sec [facility] Comment: Repeated and verified - [id number] - 02/20/23, 11:41 PM Interpretive Data Therapeutic heparin range: 60.0 - 94.0 seconds. Based on correlation with therapeutic heparin activity range of 0.3-0.7 Units/mL. Current interpretive data was last revised on 2020. Blood 02/20/2023 10:5 6 PM CDT 02/20/2023 11:12 PM CDT Narrative [facility] - 02/20/2023 11:41 PM CDT Draw STAT PTT 6 hrs after initiation of heparin infusion, draw STAT PTT 6 hours after each dose change, and every 6 hours until 2 consecutive PTTs are within therapeutic range. Once two consecutive PTT's are therapeutic (60-94.9 seconds), then draw PTT every AM until heparin is discontinued. us Estella Ellis MD PhD LAB BLOOD ORDERABL ES Final Result Performing Organization Address [facility] Co de Phone Number [facility] Department [place] [address] * (ABNORMAL) eGFR (02/20/2023 8:16 PM CDT) eGFR 68(L) 90 - 130 mL/min/1. 73 m2 [facility] Comment: Interpretive Data Reference Interval Normal ?>/= [...] interpretive data was last reviewed 2021. Blood 02/20/2023 8:16 PM CDT 02/20/2023 8:56 PM CDT Franca Echevarria DO LAB BLOOD ORDERABLE S Final Result Performing Organization Address [facility] Co de Phone Number [facility] Department [place] [address] * (ABNORMAL) Differential, auto (02/20/2023 8:16 PM CDT) Neutrophil abs 4.7 1.7 - 6.5 K/cumm [facility] Imm gran abs 0.1 0.0 - 0.1 K/cumm [facility] Lymphocyte abs 1.7 0.8 - 3.3 K/cumm [facility] Monocyte abs 1.0(H) 0.2 - 0.8 K/cumm [facility] Eosinophil abs 0.2 0.0 - 0.5 K/cumm [facility] Basophil abs 0.0 0.0 - 0.1 K/cumm [facility] Neutrophil pct 60.6 % [facility] Comment: Interpretive Data Percent cell count reference ranges are not reported, since discordance with absolute values may lead to misinterpretation of CBC data. Current Interpretive Data was last revised on 2017. Imm gran pct 1.4 % [facility] Comment: Interpretive Data Percent cell count reference ranges are not reported, since discordance with absolute values may lead to misinterpretation of CBC data. Current Interpretive Data was last revised on 2017. Lymphocyte pct 22.3 % [facility] Comment: Interpretive Data Percent cell count reference ranges are not reported, since discordance with absolute values may lead to misinterpretation of CBC data. Current Interpretive Data was last revised on 2017. Monocyte pct 12.5 % [facility] Comment: Interpretive Data Percent cell count reference ranges are not reported, since discordance with absolute values may lead to misinterpretation of CBC data. Current Interpretive Data was last revised on 2017. Eosinophil pct 2.8 % [facility] Comment: Interpretive Data Percent cell count reference ranges are not reported, since discordance with absolute values may lead to misinterpretation of CBC data. Current Interpretive Data was last revised on 2017. Basophil pct 0.4 % [facility] Comment: Interpretive Data Percent cell count reference ranges are not reported, since discordance with absolute values may lead to misinterpretation of CBC data. Current Interpretive Data was last revised on 2017. Blood 02/20/2023 8:16 PM CDT 02/20/2023 8:56 PM CDT Franca Echevarria DO LAB BLOOD ORDERABLE S Final Result [facility] [place] [address] * Blood culture Blood (02/20/2023 8:16 PM CDT) Report Final Report: No growth [facility] Blood 02/20/2023 8:16 PM CDT 02/20/2023 8:50 PM CDT Narrative [facility] - 02/25/2023 7:00 AM CDT From a different site than #1. Collection->Peripheral 1. ?Blood cultures are incubated for 4 days on a continuously monitored blood culture system. The first report of a negative culture is issued within 24 hours of receipt of the specimen in the laboratory. 2. ?Positive culture results are reported as soon as they are detected. 3. ?The most important factor for detection of microbes in the setting of bloodstream infection is the volume of blood submitted for culture. Failure to collect an optimal blood volume can result in false negative blood cultures. For pediatric patients, the recommended blood volume to collect is 1 mL of blood per year of patient age (up to 20 mL) per blood culture set. For adult patients, 20 mL of blood, divided equally between aerobic and anaerobic blood culture bottles, is recommended for each blood culture set. 4. ?For blood cultures with Gram-positive cocci, a rapid molecular test for organism identification may be performed using the Servoyigene Gram-Positive Blood Culture Assay. This assay detects microbial DNA in positive blood culture broth via hybridization of target DNA to capture oligonucleotides on a microarray. This assay has been cleared by the [place] Food and Drug Administration and its performance characteristics have been verified by the [facility]. 5. ?For questions about this culture, contact the Microbiology Laboratory at [phone]. Interpretive data was last revised on 2019. Franca Echevarria DO LAB MICROBIOLOGY - GENERAL ORDERABLES Final Result [facility] Department [place] [address] * (ABNORMAL) Blood culture Blood (02/20/2023 8:16 PM CDT) Direct Specimen Exam Stain: Gram Positive Cocci in clusters Time to culture positivity (aerobic media): 14.9 hours Time to culture positivity (anaerobic media): 23.5 hours Notification of: Gram Positive Cocci in clusters called to and read back by: Aleksey Mendez MD [phone] on 02/21/2023 12:40:21 by: Briseyda Morris MLS [facility] Direct Specimen Exam Molecular Analysis: Staphylococcus epidermidis (methicillin resistant) detected by the Verigene Blood Culture Nucleic Acid Test. This test does not exclude the possibility of a mixed bacterial infection. Notification of: ??Staphylococcus epidermidis (methicillin resistant) called to and read back by: ??Dr.Richard Maria Alejandra GRAVES [phone] on 02/21/2023 16:06:02 by: Greta Lee MT [facility] Report Final Report: Staphylococcus epidermidis Single blood culture positive for this microorganism. ??Isolate is a possible contaminant. If a similar isolate is recovered from a second blood culture collected within 3 days of this culture, both will be evaluated and, if determined to be the same species, antimicrobial susceptibility testing will be performed. Staphylococcus epidermidis #2 Single blood culture positive for this microorganism. ??Isolate is a possible contaminant. If a similar isolate is recovered from a second blood culture collected within 3 days of this culture, both will be evaluated and, if determined to be the same species, antimicrobial susceptibility testing will be performed. Staphylococcus hominis Single blood culture positive for this microorganism. ??Isolate is a possible contaminant. If a similar isolate is recovered from a second blood culture collected within 3 days of this culture, both will be evaluated and, if determined to be the same species, antimicrobial susceptibility testing will be performed.(.) [facility] Organism STAPHYLOCOCCUS EPIDERMIDIS [facility] Organism ST[facility]HYLOCOCCUS EPIDERMIDIS [facility] Organism STAPHYLOCOCCUS HOMINIS [facility] Blood 02/20/2023 8:16 PM CDT 02/20/2023 8:50 PM CDT Narrative [facility] - 02/24/2023 10:40 AM CDT Collection->Peripheral 1. ?Blood cultures are incubated for 4 days on a continuously monitored blood culture system. The first report of a negative culture is issued within 24 hours of receipt of the specimen in the laboratory. 2. ?Positive culture results are reported as soon as they are detected. 3. ?The most important factor for detection of microbes in the setting of bloodstream infection is the volume of blood submitted for culture. Failure to collect an optimal blood volume can result in false negative blood cultures. For pediatric patients, the recommended blood volume to collect is 1 mL of blood per year of patient age (up to 20 mL) per blood culture set. For adult patients, 20 mL of blood, divided equally between aerobic and anaerobic blood culture bottles, is recommended for each blood culture set. 4. ?For blood cultures with Gram-positive cocci, a rapid molecular test for organism identification may be performed using the Servoyigene Gram-Positive Blood Culture Assay. This assay detects microbial DNA in positive blood culture broth via hybridization of target DNA to capture oligonucleotides on a microarray. This assay has been cleared by the [place] Food and Drug Administration and its performance characteristics have been verified by the [facility]. 5. ?For questions about this culture, contact the Microbiology Laboratory at [phone]. Interpretive data was last revised on 2019. Franca Echevarria DO LAB MICROBIOLOGY - GENERAL ORDERABLES Final Result [facility] Department [place] [address] * Magnesium (02/20/2023 8:16 PM CDT) [facility] Magnesium 2.1 1.4 - 2.5 mg/dL [facility] Blood 02/20/2023 8:16 PM CDT 02/20/2023 8:56 PM CDT us Estella Ellis MD PhD LAB BLOOD ORDERABL ES Final Result Performing Organization Address [facility] de Phone Number [facility] [place] [address] * (ABNORMAL) CBC with auto differential (02/20/2023 8:16 PM CDT) [facility] WBC 7.8 3.8 - 9.9 K/cumm [facility] Hgb 8.7(L) 11.9 - 15.5 g/dL [facility] Hct 26.6(L) 35.6 - 45.5 % [facility] Plt 282 150 - 400 K/cumm [facility] MPV 11.8 9.1 - 12.3 fL [facility] RBC 2.92(L) 3.90 - 5.20 M/cumm [facility] MCV 91.1 81.3 - 96.4 fL [facility] MCH 29.8 27.1 - 33.3 pg [facility] MCHC 32.7 32.3 - 35.7 g/dL [facility] RDW CV 14.1 11.1 - 14.9 % [facility] RDW SD 46.7 35.7 - 48.1 fL [facility] NRBC abs 0.00 0.00 - 0.01 K/cumm [facility] Blood 02/20/2023 8:16 PM CDT 02/20/2023 8:56 PM CDT us Estella Ellis MD PhD LAB BLOOD ORDERABL ES Final Result Performing Organization Address [facility]/ZIP Co de Phone Number [facility] Department [place] [address] * Basic metabolic panel (02/20/2023 8:16 PM CDT) [facility] Sodium 137 135 - 145 mmol/L [facility] Potassium, pl 4.2 3.3 - 4.9 mmol/L [facility] Chloride 104 97 - 110 mmol/L [facility] CO2 25 22 - 32 mmol/L [facility] Anion gap 8 2 - 15 mmol/L [facility] BUN 7 6 - 25 mg/dL [facility] Creatinine 0.88 0.60 - 1.10 mg/dL [facility] Glucose 107 70 - 199 mg/dL [facility] Comment: Interpretive Data Fasting glucose >/= 126 [...] interpretive data was last revised 2022. Calcium 9.4 8.5 - 10.3 mg/dL [facility] Blood 02/20/2023 8:16 PM CDT 02/20/2023 8:56 PM CDT us Estella Ellis MD PhD LAB BLOOD ORDERABL ES Final Result [facility] [place] [address] * Vancomycin level trough (02/20/2023 8:16 PM CDT) Vancomycin trough 13.3 10.0 - 20.0 mcg/mL [facility] Blood 02/20/2023 8:16 PM CDT 02/20/2023 8:56 PM CDT us Franca Echevarria DO LAB BLOOD ORDERABLE S Final Result [facility] [place] [address] * XR Radius Ulna Right 2 Views (02/20/2023 5:58 PM CDT) Anatomical Region Laterality Modality Upper Extremities, Forearm Right Compu christel Radiography 02/21/2023 6:15 AM CDT Impressions 02/21/2023 6:15 AM CDT 1. ??Unchanged casted, mildly impacted, mildly displaced intra-articular fracture of the distal radius Electronically signed by: Dilshad Mcclendon MD, PHD Narrative 02/21/2023 6:15 AM CDT EXAMINATION: Right wrist 3+ views; right forearm 2 views HISTORY: ??Right distal radius fracture FINDINGS: 3 radiographs the right forearm and 3 radiographs right wrist are compared to prior radiographs from earlier the same day. Again noted is a casted, mildly impacted, mildly displaced, intra-articular fracture of the distal radius. ??The articular surface appears congruent with neutral inclination . ??No other fractures noted. 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 Procedure Note Dilshad Mcclendon MD PhD - 02/21/2023 EXAMINATION: Right wrist 3+ views; right forearm 2 views HISTORY: Right distal radius fracture FINDINGS: 3 radiographs the right forearm and 3 radiographs right wrist are compared to prior radiographs from earlier the same day. Again noted is a casted, mildly impacted, mildly displaced, intra-articular fracture of the distal radius. The articular surface appears congruent with neutral inclination . No other fractures noted. 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 IMPRESSION: 1. Unchanged casted, mildly impacted, mildly displaced intra-articular fracture of the distal radius Electronically signed by: Dilshad Mcclendon MD, PHD Franca Echevarria DO IMG XR PROCEDURES F inal Result * XR Wrist Right 3 or More Views (02/20/2023 5:57 PM CDT) Anatomical Region Laterality Modality Upper Extremities, Wrist Right Compute d Radiography 02/21/2023 6:15 AM CDT Impressions 02/21/2023 6:15 AM CDT 1. ??Unchanged casted, mildly impacted, mildly displaced intra-articular fracture of the distal radius Electronically signed by: Dilshad Mcclendon MD, PHD Narrative 02/21/2023 6:15 AM CDT EXAMINATION: Right wrist 3+ views; right forearm 2 views HISTORY: ??Right distal radius fracture FINDINGS: 3 radiographs the right forearm and 3 radiographs right wrist are compared to prior radiographs from earlier the same day. Again noted is a casted, mildly impacted, mildly displaced, intra-articular fracture of the distal radius. ??The articular surface appears congruent with neutral inclination . ??No other fractures noted. 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 Procedure Note Dilshad Mcclendon MD PhD - 02/21/2023 EXAMINATION: Right wrist 3+ views; right forearm 2 views HISTORY: Right distal radius fracture FINDINGS: 3 radiographs the right forearm and 3 radiographs right wrist are compared to prior radiographs from earlier the same day. Again noted is a casted, mildly impacted, mildly displaced, intra-articular fracture of the distal radius. The articular surface appears congruent with neutral inclination . No other fractures noted. 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 IMPRESSION: 1. Unchanged casted, mildly impacted, mildly displaced intra-articular fracture of the distal radius Electronically signed by: Dilshad Mcclendon MD, PHD Franca Waltersacomintali DO IMG XR PROCEDURES F inal Result * (ABNORMAL) Hepatic function panel (02/20/2023 4:55 PM CDT) Bilirubin, total 0.4 0.1 - 1.2 mg/dL [facility] Bilirubin, direct <0.2 0.1 - 0.3 mg/dL [facility] Protein, pl 6.2(L) 6.5 - 8.5 g/dL [facility] Albumin 2.9(L) 3.5 - 5.0 g/dL [facility] Alk phos 117 40 - 130 Units/L [facility] ALT 15 7 - 45 Units/L [facility] AST 23 10 - 45 Units/L [facility] Blood 02/20/2023 4:55 PM CDT 02/20/2023 5:05 PM CDT Franca Goldbergmintali DO LAB BLOOD ORDERABLE S Final Result [facility] Department [place] [address] * (ABNORMAL) eGFR (02/20/2023 4:55 PM CDT) [facility] eGFR 69(L) 90 - 130 mL/min/1. 73 m2 [facility] Comment: Interpretive Data Reference Interval Normal ?>/= [...] interpretive data was last reviewed 2021. Blood 02/20/2023 4:55 PM CDT 02/20/2023 5:05 PM CDT us Franca Echevarria DO LAB BLOOD ORDERABLE S Final Result [facility] Department [place] [address] * (ABNORMAL) aPTT (02/20/2023 4:55 PM CDT) [facility] aPTT 85(H) 28 - 38 sec [facility] Comment: Interpretive Data Therapeutic heparin range: 60.0 - 94.0 seconds. Based on correlation with therapeutic heparin activity range of 0.3-0.7 Units/mL. Current interpretive data was last revised on 2020. Blood 02/20/2023 4:55 PM CDT 02/20/2023 5:08 PM CDT Narrative [facility] - 02/20/2023 5:16 PM CDT Draw STAT PTT 6 hrs after initiation of heparin infusion, draw STAT PTT 6 hours after each dose change, and every 6 hours until 2 consecutive PTTs are within therapeutic range. Once two consecutive PTT's are therapeutic (60-94.9 seconds), then draw PTT every AM until heparin is discontinued. Estella Ellis MD PhD LAB BLOOD ORDERABL ES Final Result Performing Organization Address City/[facility]/ZIP Co de Phone Number [facility] [place] [address] * Magnesium (02/20/2023 4:55 PM CDT) [facility] Magnesium 2.2 1.4 - 2.5 mg/dL [facility] Blood 02/20/2023 4:55 PM CDT 02/20/2023 5:05 PM CDT Franca Echevarria DO LAB BLOOD ORDERABLE S Final Result [facility] [place] [address] * Basic metabolic panel (02/20/2023 4:55 PM CDT) [facility] Sodium 136 135 - 145 mmol/L [facility] Potassium, pl 4.3 3.3 - 4.9 mmol/L [facility] Chloride 101 97 - 110 mmol/L [facility] CO2 25 22 - 32 mmol/L [facility] Anion gap 10 2 - 15 mmol/L [facility] BUN 8 6 - 25 mg/dL [facility] Creatinine 0.87 0.60 - 1.10 mg/dL [facility] Glucose 197 70 - 199 mg/dL [facility] Comment: Interpretive Data Fasting glucose >/= 126 [...] interpretive data was last revised 2022. Calcium 9.4 8.5 - 10.3 mg/dL [facility] Blood 02/20/2023 4:55 PM CDT 02/20/2023 5:05 PM CDT us Franca Echevarria DO LAB BLOOD ORDERABLE S Final Result [facility] Department [place] [address] * XR Wrist Right 3 or More Views (02/20/2023 12:11 PM CDT) Anatomical Region Laterality Modality Upper Extremities, Wrist Right Compute d Radiography 02/20/2023 1:45 PM CDT Impressions 02/20/2023 2:58 PM CDT Unchanged comminuted, intra-articular, minimally depressed, mildly impacted fracture of the distal radius Dictated by: Sami Amador MD The radiology attending physician has personally reviewed this study, and had reviewed and/or edited this written report and agrees with it. Electronically signed by: Dilshad Mcclendon MD, PHD Narrative 02/20/2023 2:58 PM CDT EXAMINATION: XR WRIST RIGHT 3 OR MORE VIEWS HISTORY: ??Distal radius fracture transitioned to cast FINDINGS: 3 views of the right wrist submitted for interpretation with comparison made to prior radiograph dated 02/19/2023. ??Casting material overlies the right wrist and limits evaluation. ??Unchanged comminuted, intra-articular, minimally depressed, mildly impacted fracture of the distal radius. ??No additional fracture is seen on these limited exams. ??There is dorsal soft tissue swelling in the forearm. Unchanged polyarticular wrist arthritis. Procedure Note Dilshad Mcclendon MD PhD - 02/20/2023 EXAMINATION: XR WRIST RIGHT 3 OR MORE VIEWS HISTORY: Distal radius fracture transitioned to cast FINDINGS: 3 views of the right wrist submitted for interpretation with comparison made to prior radiograph dated 02/19/2023. Casting material overlies the right wrist and limits evaluation. Unchanged comminuted, intra-articular, minimally depressed, mildly impacted fracture of the distal radius. No additional fracture is seen on these limited exams. There is dorsal soft tissue swelling in the forearm. Unchanged polyarticular wrist arthritis. IMPRESSION: Unchanged comminuted, intra-articular, minimally depressed, mildly impacted fracture of the distal radius Dictated by: Sami Amador MD The radiology attending physician has personally reviewed this study, and had reviewed and/or edited this written report and agrees with it. Electronically signed by: Dilshad Mcclendon MD, PHD Franca Echevarria DO IMG XR PROCEDURES F inal Result * POCT glucose (02/20/2023 11:10 AM CDT) [facility] Signature Glucose, POC 115 70 - 199 mg/dL [facility] Blood 02/20/2023 11:1 0 AM CDT 02/20/2023 11:10 AM CDT Franca Echevarria DO LAB POCT ORDERABLES - DEVICE Final Result [facility] Department [place] [address] * (ABNORMAL) aPTT (02/20/2023 10:34 AM CDT) aPTT 59(H) 28 - 38 sec [facility] Comment: Interpretive Data Therapeutic heparin range: 60.0 - 94.0 seconds. Based on correlation with therapeutic heparin activity range of 0.3-0.7 Units/mL. Current interpretive data was last revised on 2020. Blood 02/20/2023 10:3 4 AM CDT 02/20/2023 10:46 AM CDT Narrative [facility] - 02/20/2023 11:13 AM CDT Draw STAT PTT 6 hrs after initiation of heparin infusion, draw STAT PTT 6 hours after each dose change, and every 6 hours until 2 consecutive PTTs are within therapeutic range. Once two consecutive PTT's are therapeutic (60-94.9 seconds), then draw PTT every AM until heparin is discontinued. us Estella Ellis MD PhD LAB BLOOD ORDERABL ES Final Result [facility] [place] [address] * TRANSTHORACIC ECHO (TTE) COMPLETE W DOPPLER/CF W CONTRAST (02/20/2023 10:24 AM CDT) Pathologist [facility] LV EF 55-60 % CARDIOREPORT Anatomical Region Laterality Modality Ultrasound 02/20/2023 7:20 AM CDT Narrative 02/20/2023 12:38 PM CDT Patient name: Tiera Lobato Date of test: 02/20/2023 Type of test: TTE w/Doppler Hospital #: 0 Date of : 1945 (F) Calender Let Off Operator: Elian Merino RDCS Referring Physician: FRANCA ECHEVARRIA MD Contrast Agent: 1.1 ml Optison Administered, (1.9 ml wasted). Contrast Administered by: ICU Nurse Supervised/Interpreted by: Piper ??MD Paul Diagnosis: Location: [facility] Reason for test: MRSA bacteremia MV Structure: Normal, ?MV Motion: Normal, ?? Mitral Annulus: mildly calcified AV Structure: tricuspid and is mildly thickened, ?? AV Motion: Normal Aotic root: Normal, ?TM: Normal, ?? PV: Normal Valvular Vegetations: none seen, ?Mass/Thrombi: none seen RA: Normal Measurements: ?M-Mode ?Normal ? Aotic Root: ? <3.8 ? LA: ? <3.8 ? RV: ? <2.8 ? LV(ED): ? <5.7 ? LV(ES): ? Variable ?2D Linear Normal ? Aotic Root: 2.7 cm ?<3.6 ? Ao Indexed: 1.4 cm/M2 <2.0 ? LA: ? <3.8 ? RV: ? 3.9 cm ?<4.2 ? LV(ED): ? 4.7 cm ?<5.3 ? LV(ES): ? 3.4 cm ?<3.5 ?2D Vol. ?? Normal ?Indexed ?? Indexed Normal RA: ? 34.0 ml ? 17.5 ml/M2 ?9-33 ? LA: ? 95.0 ml ? 49.0 ml/M2 ?16-34 ? RV: ? <11.6 ? LV(ED): ? 71.0 ml ?? 46-106 ?36.6 ml/M2 ?<62 ? LV(ES): ? 18.0 ml ?? 14-42 ? 9.3 ml/M2 ? <25 ?3D Vol. ? Indexed Normal LV(ED): ?<62 ? LV(ES): ?<24 ? LV EF: 55-60 % ?? (Normal: >=54%) ?? LV Septum: 1.2 cm ?(Normal: <0.9 cm) Wall Motion Scoring (1=Normal 2=Hypo 3=Akinetic 4=Dyskin./Aneurysm 0=Not visualized) Parasternal Long Hayti:MAS=1 BAS=1 MIL=1 MATA=1 Parasternal Short Hayti:MAS=1 MIS=1 OR=1 MIL=1 MAL=1 MA=1 Apical 4 Chambers:=1 MIS=1 BIS=1 BAL=1 MAL=1 AL=1 AC=1 Apical 2 Chambers:AI=1 OR=1 BI=1 BA=1 MA=1 AA=1 AC=1 LV Global Longitudinal Strain: RV Global Longitudinal Strain: LV Function: Normal LV Ejection Fraction, ??(EF=54-74%) RV Function: Normal Septal Motion: Normal Pericardial Effusion: none seen Atrial Septum: Normal DOPPLER/COLOR FLOW DOPPLER RESULTS: Diastolic Function: indeterminate Tricuspid Valve: normal TV Pulmonic Valve: normal PV AV Regurgitation: No AR seen AV Stenosis: no AV Area: ??cm2 AV Pressure Gradient (mmHg): Mean: 0, Peak:0 MV Regurgitation: No MR seen MV Stenosis: no MS MV Area: ??cm2 MV Pressure Gradient (mmHg): Mean: 0 MV ERO: ??cm Regurg. Vol.: ??ml/beat Regurg. Frac.: ??% PA Pressure: 20+rap mmHg DOPPLER/COLOR FOLOW DOPPLER COMMENTS: No AR seen, No MR seen, no , no MS, normal TV, normal PV. Diastolic function: indeterminate CONTRAST: 1.1 ml Optison Administered, (1.9 ml wasted). SUMMARY: ?Afib during study which is technically difficult: LV size is normal. LVEF 55-60%. Apical hypertrophy present. Normal RV function. No significant valve disease. Estimated PASP 20mmHg+RA pressure. RA pressure is normal. Confirmed on ??02/20/2023 - 12:38:33 by Piper ??MD Paul By signing this report, the attending senior cisco network engineer certifies that he or she has personally supervised and interpreted the echocardiogram and has reviewed and or edited and agrees with the written comments contained within the report. Procedure Note Piper Miller MD - 02/20/2023 Patient name: Tiera Lobato Date of test: 02/20/2023 Type of test: TTE w/Doppler Hospital #: 0 Date of : 1945 (F) Calender Let Off Operator: Elian Merino RDCS Referring Physician: FRANCA ECHEVARRIA MD Contrast Agent: 1.1 ml Optison Administered, (1.9 ml wasted). Contrast Administered by: ICU Nurse Supervised/Interpreted by: Piper Miller MD Diagnosis: Location: [facility] Reason for test: MRSA bacteremia MV Structure: Normal, MV Motion: Normal, Mitral Annulus: mildly calcified AV Structure: tricuspid and is mildly thickened, AV Motion: Normal Aotic root: Normal, TM: Normal, PV: Normal Valvular Vegetations: none seen, Mass/Thrombi: none seen RA: Normal Measurements: M-Mode Normal Aotic Root: <3.8 LA: <3.8 RV: <2.8 LV(ED): <5.7 LV(ES): Variable 2D Linear Normal Aotic Root: 2.7 cm <3.6 Ao Indexed: 1.4 cm/M2 <2.0 LA: <3.8 RV: 3.9 cm <4.2 LV(ED): 4.7 cm <5.3 LV(ES): 3.4 cm <3.5 2D Vol. Normal Indexed Indexed Normal RA: 34.0 ml 17.5 ml/M2 9-33 LA: 95.0 ml 49.0 ml/M2 16-34 RV: <11.6 LV(ED): 71.0 ml 46-106 36.6 ml/M2 <62 LV(ES): 18.0 ml 14-42 9.3 ml/M2 <25 3D Vol. Indexed Normal LV(ED): <62 LV(ES): <24 LV EF: 55-60 % (Normal: >=54%) LV Septum: 1.2 cm (Normal: <0.9 cm) Wall Motion Scoring (1=Normal 2=Hypo 3=Akinetic 4=Dyskin./Aneurysm 0=Not visualized) Parasternal Long Hayti:MAS=1 BAS=1 MIL=1 MATA=1 Parasternal Short Hayti:MAS=1 MIS=1 OR=1 MIL=1 MAL=1 MA=1 Apical 4 Chambers:=1 MIS=1 BIS=1 BAL=1 MAL=1 AL=1 AC=1 Apical 2 Chambers:AI=1 OR=1 BI=1 BA=1 MA=1 AA=1 AC=1 LV Global Longitudinal Strain: RV Global Longitudinal Strain: LV Function: Normal LV Ejection Fraction, (EF=54-74%) RV Function: Normal Septal Motion: Normal Pericardial Effusion: none seen Atrial Septum: Normal DOPPLER/COLOR FLOW DOPPLER RESULTS: Diastolic Function: indeterminate Tricuspid Valve: normal TV Pulmonic Valve: normal PV AV Regurgitation: No AR seen AV Stenosis: no AV Area: cm2 AV Pressure Gradient (mmHg): Mean: 0, Peak:0 MV Regurgitation: No MR seen MV Stenosis: no MS MV Area: cm2 MV Pressure Gradient (mmHg): Mean: 0 MV ERO: cm Regurg. Vol.: ml/beat Regurg. Frac.: % PA Pressure: 20+rap mmHg DOPPLER/COLOR FOLOW DOPPLER COMMENTS: No AR seen, No MR seen, no , no MS, normal TV, normal PV. Diastolic function: indeterminate CONTRAST: 1.1 ml Optison Administered, (1.9 ml wasted). SUMMARY: ?Afib during study which is technically difficult: LV size is normal. LVEF 55-60%. Apical hypertrophy present. Normal RV function. No significant valve disease. Estimated PASP 20mmHg+RA pressure. RA pressure is normal. Confirmed on 02/20/2023 - 12:38:33 by Piper Miller MD By signing this report, the attending senior cisco network engineer certifies that he or she has personally supervised and interpreted the echocardiogram and has reviewed and or edited and agrees with the written comments contained within the report. Franca Echevarria DO CV ECHO PROCEDURES Final Result * (ABNORMAL) eGFR (02/20/2023 3:51 AM CDT) [facility] eGFR 68(L) 90 - 130 mL/min/1. 73 m2 [facility] Comment: Interpretive Data Reference Interval Normal ?>/= [...] interpretive data was last reviewed 2021. Blood 02/20/2023 3:51 AM CDT 02/20/2023 4:39 AM CDT Franca Echevarria DO LAB BLOOD ORDERABLE S Final Result [facility] [place] [address] * (ABNORMAL) Differential, auto (02/20/2023 3:51 AM CDT) Neutrophil abs 2.9 1.7 - 6.5 K/cumm [facility] Imm gran abs 0.0 0.0 - 0.1 K/cumm [facility] Lymphocyte abs 1.3 0.8 - 3.3 K/cumm [facility] Monocyte abs 0.9(H) 0.2 - 0.8 K/cumm [facility] Eosinophil abs 0.2 0.0 - 0.5 K/cumm [facility] Basophil abs 0.0 0.0 - 0.1 K/cumm [facility] Neutrophil pct 54.5 % [facility] Comment: Interpretive Data Percent cell count reference ranges are not reported, since discordance with absolute values may lead to misinterpretation of CBC data. Current Interpretive Data was last revised on 2017. Imm gran pct 0.7 % [facility] Comment: Interpretive Data Percent cell count reference ranges are not reported, since discordance with absolute values may lead to misinterpretation of CBC data. Current Interpretive Data was last revised on 2017. Lymphocyte pct 23.9 % [facility] Comment: Interpretive Data Percent cell count reference ranges are not reported, since discordance with absolute values may lead to misinterpretation of CBC data. Current Interpretive Data was last revised on 2017. Monocyte pct 16.9 % [facility] Comment: Interpretive Data Percent cell count reference ranges are not reported, since discordance with absolute values may lead to misinterpretation of CBC data. Current Interpretive Data was last revised on 2017. Eosinophil pct 3.3 % [facility] Comment: Interpretive Data Percent cell count reference ranges are not reported, since discordance with absolute values may lead to misinterpretation of CBC data. Current Interpretive Data was last revised on 2017. Basophil pct 0.7 % [facility] Comment: Interpretive Data Percent cell count reference ranges are not reported, since discordance with absolute values may lead to misinterpretation of CBC data. Current Interpretive Data was last revised on 2017. Blood 02/20/2023 3:51 AM CDT 02/20/2023 4:41 AM CDT us Francakrysten Mcclellandski Giacomino DO LAB BLOOD ORDERABLE S Final Result Performing Organization Address [facility] Co de Phone Number [facility] [place] [address] * (ABNORMAL) Digoxin level (02/20/2023 3:51 AM CDT) Digoxin 1.4(H) 0.5 - 0.8 ng/mL [facility] Comment: Interpretive data Digoxin concentrations as high as 2 ng/mL may be useful in treating atrial fibrillation. Current interpretive data was last reviewed on 05/18/2013. Blood 02/20/2023 3:51 AM CDT 02/20/2023 4:39 AM CDT us Estella Ellis MD PhD LAB BLOOD ORDERABL ES Final Result Performing Organization Address [facility] [place] [address] * Magnesium (02/20/2023 3:51 AM CDT) Magnesium 1.8 1.4 - 2.5 mg/dL [facility] Blood 02/20/2023 3:51 AM CDT 02/20/2023 4:39 AM CDT us Franca Mcclellandski Giacomino DO LAB BLOOD ORDERABLE S Final Result Performing Organization Address [facility] [place] [address] * (ABNORMAL) Basic metabolic panel (02/20/2023 3:51 AM CDT) Sodium 136 135 - 145 mmol/L [facility] Potassium, pl 4.3 3.3 - 4.9 mmol/L [facility] Chloride 103 97 - 110 mmol/L [facility] CO2 25 22 - 32 mmol/L [facility] Anion gap 8 2 - 15 mmol/L [facility] BUN 7 6 - 25 mg/dL [facility] Creatinine 0.88 0.60 - 1.10 mg/dL [facility] Glucose 209(H) 70 - 199 mg/dL [facility] Comment: Interpretive Data Fasting glucose >/= 126 [...] 2022. Calcium 8.8 8.5 - 10.3 mg/dL [facility] Blood 02/20/2023 3:51 AM CDT 02/20/2023 4:39 AM CDT us Franca Echevarria DO LAB BLOOD ORDERABLE S Final Result [facility] Department [place] [address] * (ABNORMAL) CBC with auto differential (02/20/2023 3:51 AM CDT) WBC 5.4 3.8 - 9.9 K/cumm [facility] Hgb 8.0(L) 11.9 - 15.5 g/dL [facility] Hct 25.2(L) 35.6 - 45.5 % [facility] Plt 291 150 - 400 K/cumm [facility] MPV 12.3 9.1 - 12.3 fL [facility] RBC 2.73(L) 3.90 - 5.20 M/cumm [facility] MCV 92.3 81.3 - 96.4 fL [facility] MCH 29.3 27.1 - 33.3 pg [facility] MCHC 31.7(L) 32.3 - 35.7 g/dL [facility] RDW CV 14.2 11.1 - 14.9 % [facility] RDW SD 47.8 35.7 - 48.1 fL [facility] NRBC abs 0.00 0.00 - 0.01 K/cumm [facility] Blood 02/20/2023 3:51 AM CDT 02/20/2023 4:41 AM CDT us Franca Echevarria DO LAB BLOOD ORDERABLE S Final Result Performing Organization Address [facility] de Phone Number [facility] [place] [address] * (ABNORMAL) aPTT (02/20/2023 1:39 AM CDT) aPTT 128(H) 28 - 38 sec [facility] Comment: Interpretive Data Therapeutic heparin range: 60.0 - 94.0 seconds. Based on correlation with therapeutic heparin activity range of 0.3-0.7 Units/mL. Current interpretive data was last revised on 2020. Blood 02/20/2023 1:39 AM CDT 02/20/2023 1:52 AM CDT Narrative [facility] - 02/20/2023 2:41 AM CDT Draw STAT PTT 6 hrs after initiation of heparin infusion, draw STAT PTT 6 hours after each dose change, and every 6 hours until 2 consecutive PTTs are within therapeutic range. Once two consecutive PTT's are therapeutic (60-94.9 seconds), then draw PTT every AM until heparin is discontinued. us Estella Ellis MD PhD LAB BLOOD ORDERABL ES Final Result Performing Organization Address [facility] Co de Phone Number [facility] Department [place] [address] * (ABNORMAL) eGFR (02/19/2023 5:50 PM CDT) Pathologist [facility] eGFR 71(L) 90 - 130 mL/min/1. 73 m2 [facility] Comment: Interpretive Data Reference Interval Normal ?>/= [...] interpretive data was last reviewed 2021. Blood 02/19/2023 5:50 PM CDT 02/19/2023 6:23 PM CDT us Franca Echevarria DO LAB BLOOD ORDERABLE S Final Result EMILYPORTIA JAMES [facility] [place] [address] * (ABNORMAL) aPTT (02/19/2023 5:50 PM CDT) [facility] aPTT 47(H) 28 - 38 sec [facility] Comment: Interpretive Data Therapeutic heparin range: 60.0 - 94.0 seconds. Based on correlation with therapeutic heparin activity range of 0.3-0.7 Units/mL. Current interpretive data was last revised on 2020. Blood 02/19/2023 5:50 PM CDT 02/19/2023 6:14 PM CDT Franca Dugolenski Giacomino DO LAB BLOOD ORDERABLE S Final Result Performing Organization Address [facility] Co de Phone Number [facility] [place] [address] * Magnesium (02/19/2023 5:50 PM CDT) [facility] Magnesium 2.0 1.4 - 2.5 mg/dL [facility] Blood 02/19/2023 5:50 PM CDT 02/19/2023 6:23 PM CDT Franca Affinityi GiacomLEDo DO LAB BLOOD ORDERABLE S Final Result Performing Organization Address [facility] de Phone Number [facility] [place] [address] * Basic metabolic panel (02/19/2023 5:50 PM CDT) Pathologist [facility] Sodium 140 135 - 145 mmol/L [facility] Potassium, pl 3.6 3.3 - 4.9 mmol/L [facility] Chloride 107 97 - 110 mmol/L [facility] CO2 26 22 - 32 mmol/L [facility] Anion gap 7 2 - 15 mmol/L [facility] BUN 8 6 - 25 mg/dL [facility] Creatinine 0.85 0.60 - 1.10 mg/dL [facility] Glucose 128 70 - 199 mg/dL [facility] Comment: Interpretive Data Fasting glucose >/= 126 [...] interpretive data was last revised 2022. Calcium 9.1 8.5 - 10.3 mg/dL [facility] Blood 02/19/2023 5:50 PM CDT 02/19/2023 6:23 PM CDT us Franca Waltersacomolly DO LAB BLOOD ORDERABLE S Final Result [facility] [place] [address] * XR Chest 1 View (02/19/2023 3:43 PM CDT) Anatomical Region Laterality Modality Body, Chest N/A Computed Radiogr aphy 02/19/2023 4:11 PM CDT Impressions 02/19/2023 4:18 PM CDT Comparison with radiograph 02/17/2023. ??Left upper shimmed approach peripherally inserted central venous catheter tip overlies the superior vena cava. ??Patient is status post coronary bypass and median sternotomy. ??Sternotomy wires are aligned and unchanged. ??Small left basilar effusion with accompanying atelectasis, unchanged from prior. ??No right pleural effusion. ??No pneumothorax. ??Bilateral peripheral nodular opacities are again seen, better evaluated on CT 02/18/2023. ??Unchanged cardiomediastinal silhouette. Dictated by: Itz Kemp MD PHD The radiology attending physician has personally reviewed this study, and had reviewed and/or edited this written report and agrees with it. Electronically signed by: Te Wayne M.D. Narrative 02/19/2023 4:18 PM CDT EXAMINATION: 1 view chest radiograph Procedure Note Te Wayne MD - 02/19/2023 EXAMINATION: 1 view chest radiograph IMPRESSION: Comparison with radiograph 02/17/2023. Left upper shimmed approach peripherally inserted central venous catheter tip overlies the superior vena cava. Patient is status post coronary bypass and median sternotomy. Sternotomy wires are aligned and unchanged. Small left basilar effusion with accompanying atelectasis, unchanged from prior. No right pleural effusion. No pneumothorax. Bilateral peripheral nodular opacities are again seen, better evaluated on CT 02/18/2023. Unchanged cardiomediastinal silhouette. Dictated by: Itz Kemp MD PHD The radiology attending physician has personally reviewed this study, and had reviewed and/or edited this written report and agrees with it. Electronically signed by: Te Wayne M.D. us Franca Echevarria DO IMG XR PROCEDURES F inal Result * XR Wrist Right 3 or More Views (02/19/2023 12:21 PM CDT) Anatomical Region Laterality Modality Upper Extremities, Wrist Right Compute d Radiography 02/19/2023 12:4 7 PM CDT Impressions 02/19/2023 12:47 PM CDT 1. ??Unchanged comminuted, mildly depressed, intra-articular fracture of the distal right radius, managed with casting. 2. ??No additional fracture of the right elbow, forearm, wrist, and hand. Electronically signed by: Estella Reid M.D. Narrative 02/19/2023 12:47 PM CDT EXAMINATION: XR ELBOW RIGHT 3 OR MORE VIEWS, XR HAND RIGHT 3 OR MORE VIEWS, XR WRIST RIGHT 3 OR MORE VIEWS, XR RADIUS ULNA RIGHT 2 VIEWS HISTORY: Distal right radius fracture FINDINGS: 4 views of the right elbow, 2 views of the right forearm, 3 views of the right wrist, and 3 views of the right hand are all performed with portable technique and compared to a study from 02/17/2023. A pulse oximeter obscures the index finger distal phalanx. ??The forearm, wrist, and hand are casted and the cast obscures bone detail. 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 ??There is a comminuted, intra-articular, minimally depressed fracture of the distal radius involving the dorsal lip there is mild impaction and mild articular incongruity. ??No additional fracture is seen on these limited exams. ??There is dorsal soft tissue swelling in the forearm. Procedure Note Estella Reid MD - 02/19/2023 EXAMINATION: XR ELBOW RIGHT 3 OR MORE VIEWS, XR HAND RIGHT 3 OR MORE VIEWS, XR WRIST RIGHT 3 OR MORE VIEWS, XR RADIUS ULNA RIGHT 2 VIEWS HISTORY: Distal right radius fracture FINDINGS: 4 views of the right elbow, 2 views of the right forearm, 3 views of the right wrist, and 3 views of the right hand are all performed with portable technique and compared to a study from 02/17/2023. A pulse oximeter obscures the index finger distal phalanx. The forearm, wrist, and hand are casted and the cast obscures bone detail. 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 There is a comminuted, intra-articular, minimally depressed fracture of the distal radius involving the dorsal lip there is mild impaction and mild articular incongruity. No additional fracture is seen on these limited exams. There is dorsal soft tissue swelling in the forearm. IMPRESSION: 1. Unchanged comminuted, mildly depressed, intra-articular fracture of the distal right radius, managed with casting. 2. No additional fracture of the right elbow, forearm, wrist, and hand. Electronically signed by: Estella Reid M.D. Franca Echevarria DO IMG XR PROCEDURES F inal Result * XR Radius Ulna Right 2 Views (02/19/2023 12:20 PM CDT) Anatomical Region Laterality Modality Upper Extremities, Forearm Right Compu christel Radiography 02/19/2023 12:4 7 PM CDT Impressions 02/19/2023 12:47 PM CDT 1. ??Unchanged comminuted, mildly depressed, intra-articular fracture of the distal right radius, managed with casting. 2. ??No additional fracture of the right elbow, forearm, wrist, and hand. Electronically signed by: Estella Reid M.D. Narrative 02/19/2023 12:47 PM CDT EXAMINATION: XR ELBOW RIGHT 3 OR MORE VIEWS, XR HAND RIGHT 3 OR MORE VIEWS, XR WRIST RIGHT 3 OR MORE VIEWS, XR RADIUS ULNA RIGHT 2 VIEWS HISTORY: Distal right radius fracture FINDINGS: 4 views of the right elbow, 2 views of the right forearm, 3 views of the right wrist, and 3 views of the right hand are all performed with portable technique and compared to a study from 02/17/2023. A pulse oximeter obscures the index finger distal phalanx. ??The forearm, wrist, and hand are casted and the cast obscures bone detail. 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 ??There is a comminuted, intra-articular, minimally depressed fracture of the distal radius involving the dorsal lip there is mild impaction and mild articular incongruity. ??No additional fracture is seen on these limited exams. ??There is dorsal soft tissue swelling in the forearm. Procedure Note Estella Reid MD - 02/19/2023 EXAMINATION: XR ELBOW RIGHT 3 OR MORE VIEWS, XR HAND RIGHT 3 OR MORE VIEWS, XR WRIST RIGHT 3 OR MORE VIEWS, XR RADIUS ULNA RIGHT 2 VIEWS HISTORY: Distal right radius fracture FINDINGS: 4 views of the right elbow, 2 views of the right forearm, 3 views of the right wrist, and 3 views of the right hand are all performed with portable technique and compared to a study from 02/17/2023. A pulse oximeter obscures the index finger distal phalanx. The forearm, wrist, and hand are casted and the cast obscures bone detail. 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 There is a comminuted, intra-articular, minimally depressed fracture of the distal radius involving the dorsal lip there is mild impaction and mild articular incongruity. No additional fracture is seen on these limited exams. There is dorsal soft tissue swelling in the forearm. IMPRESSION: 1. Unchanged comminuted, mildly depressed, intra-articular fracture of the distal right radius, managed with casting. 2. No additional fracture of the right elbow, forearm, wrist, and hand. Electronically signed by: Estella Reid M.D. us Franca Echevarria DO IMG XR PROCEDURES F inal Result * XR Hand Right 3 or More Views (02/19/2023 12:20 PM CDT) Anatomical Region Laterality Modality Upper Extremities, Hand Right Computed Radiography 02/19/2023 12:4 7 PM CDT Impressions 02/19/2023 12:47 PM CDT 1. ??Unchanged comminuted, mildly depressed, intra-articular fracture of the distal right radius, managed with casting. 2. ??No additional fracture of the right elbow, forearm, wrist, and hand. Electronically signed by: Estella Reid M.D. Narrative 02/19/2023 12:47 PM CDT EXAMINATION: XR ELBOW RIGHT 3 OR MORE VIEWS, XR HAND RIGHT 3 OR MORE VIEWS, XR WRIST RIGHT 3 OR MORE VIEWS, XR RADIUS ULNA RIGHT 2 VIEWS HISTORY: Distal right radius fracture FINDINGS: 4 views of the right elbow, 2 views of the right forearm, 3 views of the right wrist, and 3 views of the right hand are all performed with portable technique and compared to a study from 02/17/2023. A pulse oximeter obscures the index finger distal phalanx. ??The forearm, wrist, and hand are casted and the cast obscures bone detail. 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 ??There is a comminuted, intra-articular, minimally depressed fracture of the distal radius involving the dorsal lip there is mild impaction and mild articular incongruity. ??No additional fracture is seen on these limited exams. ??There is dorsal soft tissue swelling in the forearm. Procedure Note Estella Reid MD - 02/19/2023 EXAMINATION: XR ELBOW RIGHT 3 OR MORE VIEWS, XR HAND RIGHT 3 OR MORE VIEWS, XR WRIST RIGHT 3 OR MORE VIEWS, XR RADIUS ULNA RIGHT 2 VIEWS HISTORY: Distal right radius fracture FINDINGS: 4 views of the right elbow, 2 views of the right forearm, 3 views of the right wrist, and 3 views of the right hand are all performed with portable technique and compared to a study from 02/17/2023. A pulse oximeter obscures the index finger distal phalanx. The forearm, wrist, and hand are casted and the cast obscures bone detail. 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 There is a comminuted, intra-articular, minimally depressed fracture of the distal radius involving the dorsal lip there is mild impaction and mild articular incongruity. No additional fracture is seen on these limited exams. There is dorsal soft tissue swelling in the forearm. IMPRESSION: 1. Unchanged comminuted, mildly depressed, intra-articular fracture of the distal right radius, managed with casting. 2. No additional fracture of the right elbow, forearm, wrist, and hand. Electronically signed by: Estella Reid M.D. us Franca Sanchezjosianemely Selenaafsaneh DO IMG XR PROCEDURES F inal Result * XR Elbow Right 3 or More Views (02/19/2023 12:20 PM CDT) Anatomical Region Laterality Modality Upper Extremities, Elbow Right Compute d Radiography 02/19/2023 12:4 7 PM CDT Impressions 02/19/2023 12:47 PM CDT 1. ??Unchanged comminuted, mildly depressed, intra-articular fracture of the distal right radius, managed with casting. 2. ??No additional fracture of the right elbow, forearm, wrist, and hand. Electronically signed by: Estella Reid M.D. Narrative 02/19/2023 12:47 PM CDT EXAMINATION: XR ELBOW RIGHT 3 OR MORE VIEWS, XR HAND RIGHT 3 OR MORE VIEWS, XR WRIST RIGHT 3 OR MORE VIEWS, XR RADIUS ULNA RIGHT 2 VIEWS HISTORY: Distal right radius fracture FINDINGS: 4 views of the right elbow, 2 views of the right forearm, 3 views of the right wrist, and 3 views of the right hand are all performed with portable technique and compared to a study from 02/17/2023. A pulse oximeter obscures the index finger distal phalanx. ??The forearm, wrist, and hand are casted and the cast obscures bone detail. 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 ??There is a comminuted, intra-articular, minimally depressed fracture of the distal radius involving the dorsal lip there is mild impaction and mild articular incongruity. ??No additional fracture is seen on these limited exams. ??There is dorsal soft tissue swelling in the forearm. Procedure Note Estella Reid MD - 02/19/2023 EXAMINATION: XR ELBOW RIGHT 3 OR MORE VIEWS, XR HAND RIGHT 3 OR MORE VIEWS, XR WRIST RIGHT 3 OR MORE VIEWS, XR RADIUS ULNA RIGHT 2 VIEWS HISTORY: Distal right radius fracture FINDINGS: 4 views of the right elbow, 2 views of the right forearm, 3 views of the right wrist, and 3 views of the right hand are all performed with portable technique and compared to a study from 02/17/2023. A pulse oximeter obscures the index finger distal phalanx. The forearm, wrist, and hand are casted and the cast obscures bone detail. 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 There is a comminuted, intra-articular, minimally depressed fracture of the distal radius involving the dorsal lip there is mild impaction and mild articular incongruity. No additional fracture is seen on these limited exams. There is dorsal soft tissue swelling in the forearm. IMPRESSION: 1. Unchanged comminuted, mildly depressed, intra-articular fracture of the distal right radius, managed with casting. 2. No additional fracture of the right elbow, forearm, wrist, and hand. Electronically signed by: Estella Reid M.D. Franca Echevarria DO IMG XR PROCEDURES F inal Result * (ABNORMAL) aPTT (02/19/2023 11:37 AM CDT) aPTT 54(H) 28 - 38 sec [facility] Comment: Interpretive Data Therapeutic heparin range: 60.0 - 94.0 seconds. Based on correlation with therapeutic heparin activity range of 0.3-0.7 Units/mL. Current interpretive data was last revised on 2020. Blood 02/19/2023 11:3 7 AM CDT 02/19/2023 12:09 PM CDT Franca Carcamo Giacomino DO LAB BLOOD ORDERABLE S Final Result [facility] Department [place] [address] * (ABNORMAL) eGFR (02/19/2023 5:02 AM CDT) eGFR 74(L) 90 - 130 mL/min/1. 73 m2 [facility] Comment: Interpretive Data Reference Interval Normal ?>/= [...] interpretive data was last reviewed 2021. Blood 02/19/2023 5:02 AM CDT 02/19/2023 5:17 AM CDT us Franca Echevarria DO LAB BLOOD ORDERABLE S Final Result [facility] Department [place] [address] * Differential, auto (02/19/2023 5:02 AM CDT) Neutrophil abs 2.5 1.7 - 6.5 K/cumm [facility] Imm gran abs 0.0 0.0 - 0.1 K/cumm [facility] Lymphocyte abs 1.1 0.8 - 3.3 K/cumm [facility] Monocyte abs 0.8 0.2 - 0.8 K/cumm [facility] Eosinophil abs 0.2 0.0 - 0.5 K/cumm [facility] Basophil abs 0.0 0.0 - 0.1 K/cumm [facility] Neutrophil pct 53.2 % [facility] Comment: Interpretive Data Percent cell count reference ranges are not reported, since discordance with absolute values may lead to misinterpretation of CBC data. Current Interpretive Data was last revised on 2017. Imm gran pct 0.6 % [facility] Comment: Interpretive Data Percent cell count reference ranges are not reported, since discordance with absolute values may lead to misinterpretation of CBC data. Current Interpretive Data was last revised on 2017. Lymphocyte pct 24.4 % [facility] Comment: Interpretive Data Percent cell count reference ranges are not reported, since discordance with absolute values may lead to misinterpretation of CBC data. Current Interpretive Data was last revised on 2017. Monocyte pct 16.1 % [facility] Comment: Interpretive Data Percent cell count reference ranges are not reported, since discordance with absolute values may lead to misinterpretation of CBC data. Current Interpretive Data was last revised on 2017. Eosinophil pct 5.1 % [facility] Comment: Interpretive Data Percent cell count reference ranges are not reported, since discordance with absolute values may lead to misinterpretation of CBC data. Current Interpretive Data was last revised on 2017. Basophil pct 0.6 % [facility] Comment: Interpretive Data Percent cell count reference ranges are not reported, since discordance with absolute values may lead to misinterpretation of CBC data. Current Interpretive Data was last revised on 2017. Blood 02/19/2023 5:02 AM CDT 02/19/2023 5:17 AM CDT us Franca Echevarria DO LAB BLOOD ORDERABLE S Final Result [facility] Department [place] [address] * (ABNORMAL) aPTT (02/19/2023 5:02 AM CDT) aPTT 45(H) 28 - 38 sec [facility] Comment: Interpretive Data Therapeutic heparin range: 60.0 - 94.0 seconds. Based on correlation with therapeutic heparin activity range of 0.3-0.7 Units/mL. Current interpretive data was last revised on 2020. Blood 02/19/2023 5:02 AM CDT 02/19/2023 5:38 AM CDT Narrative [facility] - 02/19/2023 5:47 AM CDT Draw STAT PTT 6 hrs after initiation of heparin infusion, draw STAT PTT 6 hours after each dose change, and every 6 hours until 2 consecutive PTTs are within therapeutic range. Once two consecutive PTT's are therapeutic (60-94.9 seconds), then draw PTT every AM until heparin is discontinued. Estella Ellis MD PhD LAB BLOOD ORDERABL ES Final Result Performing Organization Address City/[facility] [place] [address] * (ABNORMAL) Digoxin level (02/19/2023 5:02 AM CDT) Digoxin 2.0(H) 0.5 - 0.8 ng/mL [facility] Comment: Interpretive data Digoxin concentrations as high as 2 ng/mL may be useful in treating atrial fibrillation. Current interpretive data was last reviewed on 05/18/2013. Blood 02/19/2023 5:02 AM CDT 02/19/2023 5:17 AM CDT Estella Ellis MD PhD LAB BLOOD ORDERABL ES Final Result Performing Organization Address City/[facility] Co de Phone Number [facility] [place] [address] * Magnesium (02/19/2023 5:02 AM CDT) Magnesium 1.9 1.4 - 2.5 mg/dL [facility] Blood 02/19/2023 5:02 AM CDT 02/19/2023 5:17 AM CDT [facility] DO LAB BLOOD ORDERABLE S Final Result [facility] Department [place] [address] * Basic metabolic panel (02/19/2023 5:02 AM CDT) Pathologist [facility] Sodium 141 135 - 145 mmol/L [facility] Potassium, pl 4.0 3.3 - 4.9 mmol/L [facility] Chloride 110 97 - 110 mmol/L [facility] CO2 22 22 - 32 mmol/L [facility] Anion gap 9 2 - 15 mmol/L [facility] BUN 8 6 - 25 mg/dL [facility] Creatinine 0.82 0.60 - 1.10 mg/dL [facility] Glucose 104 70 - 199 mg/dL [facility] Comment: Interpretive Data Fasting glucose >/= 126 [...] 2022. Calcium 8.8 8.5 - 10.3 mg/dL [facility] Blood 02/19/2023 5:02 AM CDT 02/19/2023 5:17 AM CDT us Zympii Giacomino DO LAB BLOOD ORDERABLE S Final Result Performing Organization Address [facility] de Phone Number [facility] [place] [address] * (ABNORMAL) CBC with auto differential (02/19/2023 5:02 AM CDT) [facility] WBC 4.7 3.8 - 9.9 K/cumm [facility] Hgb 8.6(L) 11.9 - 15.5 g/dL [facility] Hct 25.6(L) 35.6 - 45.5 % [facility] Plt 274 150 - 400 K/cumm [facility] MPV 11.8 9.1 - 12.3 fL [facility] RBC 2.84(L) 3.90 - 5.20 M/cumm [facility] MCV 90.1 81.3 - 96.4 fL [facility] MCH 30.3 27.1 - 33.3 pg [facility] MCHC 33.6 32.3 - 35.7 g/dL [facility] RDW CV 13.9 11.1 - 14.9 % [facility] RDW SD 45.9 35.7 - 48.1 fL [facility] NRBC abs 0.00 0.00 - 0.01 K/cumm [facility] Blood 02/19/2023 5:02 AM CDT 02/19/2023 5:17 AM CDT Franca Echevarria DO LAB BLOOD ORDERABLE S Final Result Performing Organization Address [facility] Co de Phone Number [facility] Department [place] [address] * (ABNORMAL) eGFR (02/18/2023 5:33 PM CDT) [facility] eGFR 74(L) 90 - 130 mL/min/1. 73 m2 [facility] Comment: Interpretive Data Reference Interval Normal ?>/= [...] interpretive data was last reviewed 2021. Blood 02/18/2023 5:33 PM CDT 02/18/2023 6:03 PM CDT us Franca Echevarria DO LAB BLOOD ORDERABLE S Final Result [facility] Department [place] [address] * Critical Result Callback Chemistry (02/18/2023 5:33 PM CDT) Date Notified [id number] VALENTE RAMIREZ Time Notified 1834 VALENTE RAMIREZ TestName Digoxin VALENTE HALL Called/Read Back Kel RAMIREZ Credentials PHILIP RAMIREZ Called By ksenia RAMIREZ Blood 02/18/2023 5:33 PM CDT 02/18/2023 6:03 PM CDT us Franca Dugolenski Giacomino DO LAB BLOOD ORDERABLE S Final Result Performing Organization Address [facility] [place] [address] * (ABNORMAL) Digoxin level (02/18/2023 5:33 PM CDT) [facility] Digoxin 2.9(C) 0.5 - 0.8 ng/mL [facility] Comment: Interpretive data Digoxin concentrations as high as 2 ng/mL may be useful in treating atrial fibrillation. Current interpretive data was last reviewed on 05/18/2013. Blood 02/18/2023 5:33 PM CDT 02/18/2023 6:03 PM CDT us Franca Rodriguezi Giacomino DO LAB BLOOD ORDERABLE S Final Result Performing Organization Address [facility] Co de Phone Number [facility] [place] [address] * Magnesium (02/18/2023 5:33 PM CDT) [facility] Magnesium 2.0 1.4 - 2.5 mg/dL [facility] Blood 02/18/2023 5:33 PM CDT 02/18/2023 6:03 PM CDT Franca Cracamo Giacomino DO LAB BLOOD ORDERABLE S Final Result Performing Organization Address [facility] [place] [address] * Basic metabolic panel (02/18/2023 5:33 PM CDT) [facility] Sodium 137 135 - 145 mmol/L [facility] Potassium, pl 4.1 3.3 - 4.9 mmol/L [facility] Chloride 107 97 - 110 mmol/L [facility] CO2 23 22 - 32 mmol/L [facility] Anion gap 7 2 - 15 mmol/L [facility] BUN 8 6 - 25 mg/dL [facility] Creatinine 0.82 0.60 - 1.10 mg/dL [facility] Glucose 114 70 - 199 mg/dL [facility] Comment: Interpretive Data Fasting glucose >/= 126 [...] 2022. Calcium 8.6 8.5 - 10.3 mg/dL [facility] Blood 02/18/2023 5:33 PM CDT 02/18/2023 6:03 PM CDT us Franca Echevarria DO LAB BLOOD ORDERABLE S Final Result Performing Organization Address City/[facility]/ZIP Co de Phone Number [facility] [place] [address] * Vancomycin level trough Draw trough 24 hours after dose administration (02/18/2023 5:33 PM CDT) [facility] Vancomycin trough 14.8 10.0 - 20.0 mcg/mL [facility] Blood 02/18/2023 5:33 PM CDT 02/18/2023 6:03 PM CDT Narrative [facility] - 02/18/2023 6:31 PM CDT Draw trough 24 hours after dose administration us Olimpia Long MD LAB BLOOD ORDERAB LES Final Result [facility] [place] [address] * CT Chest Abdomen Pelvis W Contrast (02/18/2023 2:13 PM CDT) Anatomical Region Laterality Modality Body N/A Computed Tomogra phy 02/18/2023 3:04 PM CDT Impressions 02/18/2023 3:04 PM CDT 1. ??Multiple peripheral predominant areas of nodularity with surrounding groundglass within the lungs, multiple of which are new or enlarging compared to 02/15/2023, suspicious for septic emboli. 2. ??Unchanged nondisplaced right 4th through 6th and 9th rib fractures with overlying subpleural hematoma adjacent to the right 9th rib fracture. 3. ??Worsening small bilateral pleural effusions. Electronically signed by: Leopoldo Don M.D. Narrative 02/18/2023 3:04 PM CDT EXAMINATION: ??Computed tomography of the chest abdomen and pelvis with intravenous contrast HISTORY: 77-year-old female presenting from outside hospital for management of atrial fibrillation with rapid ventricular rate. Outside hospital CT demonstrated findings suspicious for multifocal pneumonia. TECHNIQUE: ??Transaxial computed tomographic images of the chest abdomen and pelvis were obtained after the uneventful administration of intravenous contrast according to the standard protocol. COMPARISON: 02/15/2023 FINDINGS: ?? Chest: Thyroid gland is normal. Stable to slightly increased size of mildly prominent mediastinal lymph nodes which are likely reactive. ??No axillary, supraclavicular lymphadenopathy. Heart is mildly enlarged. ??Coronary artery atherosclerosis. ??There is no pericardial effusion. Worsening small bilateral pleural effusions with associated bibasilar atelectasis. ??Unchanged focus of right subpleural hematoma measuring 2.2 cm best seen at series 3, image 99). Evolving peripheral predominant nodularity with surrounding groundglass and some areas of developing internal cavitation. ??Some of these nodules are new compared to examination from 02/15/2023 or have increased in size. ??For reference, a centrally cavitary nodule abutting the anterior pleura in the right middle lobe best seen at series 4, image 85 measuring 1.7 x 1.8 cm was not definitively seen on prior examination. ??There is no pneumothorax. Abdomen/Pelvis: Too small to characterize hypodense hypoattenuating lesion within the right hepatic dome which likely was seen on examination from 02/15/2023. ??Main portal vein is patent. ??The gallbladder is absent. Mild intrahepatic and extrahepatic bile duct dilation likely representing sequela of a reservoir effect. ??There is a periampullary duodenal diverticulum. ??Mild fatty atrophy of the pancreas. ??The spleen is normal. ??1.2 cm exophytic lesion arising from the superior pole left kidney which appears slightly hyper attenuating on prior noncontrast CT likely representing a hemorrhagic or proteinaceous cyst. ??Cysts are also seen within the right kidney. ??The right adrenal gland is normal. ??There is a left adrenal myelolipoma measuring 3.4 x 3.4 cm, unchanged from most recent prior examination. Bladder is decompressed by Rich catheter. ??No adnexal mass. Large bowel is normal in course and caliber. ??The visualized portions of the appendix are normal. ??The small bowel is normal in course and caliber. Right femoral central venous catheter is noted with small amount of intraluminal gas as well as gas within the right inguinal soft tissues is likely postprocedural. ??Calcified splenic artery aneurysm is noted and unchanged. ??Atherosclerosis of the abdominal aorta with mild multifocal ectasia. Severe degenerative changes within the right hip joint. Redemonstrated minimally displaced fractures of the right 4th and 5th and 6th ribs anteriorly as well as the right 9th rib posteriorly. Unchanged compression fracture at T11 Procedure Note Leopoldo Don MD - 02/18/2023 EXAMINATION: Computed tomography of the chest abdomen and pelvis with intravenous contrast HISTORY: 77-year-old female presenting from outside hospital for management of atrial fibrillation with rapid ventricular rate. Outside hospital CT demonstrated findings suspicious for multifocal pneumonia. TECHNIQUE: Transaxial computed tomographic images of the chest abdomen and pelvis were obtained after the uneventful administration of intravenous contrast according to the standard protocol. COMPARISON: 02/15/2023 FINDINGS: Chest: Thyroid gland is normal. Stable to slightly increased size of mildly prominent mediastinal lymph nodes which are likely reactive. No axillary, supraclavicular lymphadenopathy. Heart is mildly enlarged. Coronary artery atherosclerosis. There is no pericardial effusion. Worsening small bilateral pleural effusions with associated bibasilar atelectasis. Unchanged focus of right subpleural hematoma measuring 2.2 cm best seen at series 3, image 99). Evolving peripheral predominant nodularity with surrounding groundglass and some areas of developing internal cavitation. Some of these nodules are new compared to examination from 02/15/2023 or have increased in size. For reference, a centrally cavitary nodule abutting the anterior pleura in the right middle lobe best seen at series 4, image 85 measuring 1.7 x 1.8 cm was not definitively seen on prior examination. There is no pneumothorax. Abdomen/Pelvis: Too small to characterize hypodense hypoattenuating lesion within the right hepatic dome which likely was seen on examination from 02/15/2023. Main portal vein is patent. The gallbladder is absent. Mild intrahepatic and extrahepatic bile duct dilation likely representing sequela of a reservoir effect. There is a periampullary duodenal diverticulum. Mild fatty atrophy of the pancreas. The spleen is normal. 1.2 cm exophytic lesion arising from the superior pole left kidney which appears slightly hyper attenuating on prior noncontrast CT likely representing a hemorrhagic or proteinaceous cyst. Cysts are also seen within the right kidney. The right adrenal gland is normal. There is a left adrenal myelolipoma measuring 3.4 x 3.4 cm, unchanged from most recent prior examination. Bladder is decompressed by Rich catheter. No adnexal mass. Large bowel is normal in course and caliber. The visualized portions of the appendix are normal. The small bowel is normal in course and caliber. Right femoral central venous catheter is noted with small amount of intraluminal gas as well as gas within the right inguinal soft tissues is likely postprocedural. Calcified splenic artery aneurysm is noted and unchanged. Atherosclerosis of the abdominal aorta with mild multifocal ectasia. Severe degenerative changes within the right hip joint. Redemonstrated minimally displaced fractures of the right 4th and 5th and 6th ribs anteriorly as well as the right 9th rib posteriorly. Unchanged compression fracture at T11 IMPRESSION: 1. Multiple peripheral predominant areas of nodularity with surrounding groundglass within the lungs, multiple of which are new or enlarging compared to 02/15/2023, suspicious for septic emboli. 2. Unchanged nondisplaced right 4th through 6th and 9th rib fractures with overlying subpleural hematoma adjacent to the right 9th rib fracture. 3. Worsening small bilateral pleural effusions. Electronically signed by: Leopoldo Don M.D. us Franca Dugolenski Giacomino DO IMG CT PROCEDURES F inal Result * (ABNORMAL) aPTT (02/18/2023 8:50 AM CDT) aPTT 60(H) 28 - 38 sec [facility] Comment: Interpretive Data Therapeutic heparin range: 60.0 - 94.0 seconds. Based on correlation with therapeutic heparin activity range of 0.3-0.7 Units/mL. Current interpretive data was last revised on 2020. Blood 02/18/2023 8:50 AM CDT 02/18/2023 9:05 AM CDT Franca Dusheriski Giacomino DO LAB BLOOD ORDERABLE S Final Result Performing Organization Address [facility] Co de Phone Number [facility] [place] [address] * TSH reflex to free T4 (02/18/2023 4:26 AM CDT) Pathologist [facility] TSH 2.14 0.30 - 4.20 mcIUnit/mL [facility] Blood 02/18/2023 4:26 AM CDT 02/18/2023 5:05 AM CDT Franca Mcclellandski Giacomino DO LAB BLOOD ORDERABLE S Final Result Performing Organization Address City/[facility] Co de Phone Number [facility] [place] [address] * (ABNORMAL) Lipid panel (02/18/2023 4:26 AM CDT) Cholesterol 78 30 - 199 mg/dL [facility] Comment: Interpretive Data Ages < or = [...] Data was last revised on 2018. Triglycerides 124 <=149 mg/dL [facility] Comment: Interpretive Data Ages < or = [...] Data was last revised on 2018. HDL 16(L) >=40 mg/dL [facility] Comment: Interpretive Data Ages < or = [...] was last revised on 2018. LDL, calculated 37 <=129 mg/dL [facility] Comment: Interpretive Data Ages < or = [...] was last revised on 2018. Non-HDL Cholesterol 62 mg/dL [facility] Comment: Interpretive Data Ages < or = [...] was last revised on 2018. Chol/HDL ratio 5 [facility] Blood 02/18/2023 4:26 AM CDT 02/18/2023 4:45 AM CDT us Franca Echevarria DO LAB BLOOD ORDERABLE S Final Result [facility] [place] [address] * (ABNORMAL) Reticulocyte Count (02/18/2023 4:26 AM CDT) [facility] Retics, absolute 0.031 0.020 - 0.087 M/cumm [facility] Retics 1.1 0.4 - 2.9 % [facility] Reticulocyte Hgb 24.5(L) 30.5 - 38.0 pg [facility] Blood 02/18/2023 4:26 AM CDT 02/18/2023 4:44 AM CDT Franca Echevarria DO LAB BLOOD ORDERABLE S Final Result Performing Organization Address [facility] de Phone Number [facility] Department [place] [address] * (ABNORMAL) eGFR (02/18/2023 4:26 AM CDT) [facility] eGFR 73(L) 90 - 130 mL/min/1. 73 m2 [facility] Comment: Interpretive Data Reference Interval Normal ?>/= [...] interpretive data was last reviewed 2021. Blood 02/18/2023 4:26 AM CDT 02/18/2023 4:50 AM CDT us Franca Echevarria DO LAB BLOOD ORDERABLE S Final Result [facility] [place] [address] * Differential, auto (02/18/2023 4:26 AM CDT) Neutrophil abs 4.0 1.7 - 6.5 K/cumm [facility] Imm gran abs 0.0 0.0 - 0.1 K/cumm [facility] Lymphocyte abs 0.9 0.8 - 3.3 K/cumm [facility] Monocyte abs 0.7 0.2 - 0.8 K/cumm [facility] Eosinophil abs 0.1 0.0 - 0.5 K/cumm [facility] Basophil abs 0.0 0.0 - 0.1 K/cumm [facility] Neutrophil pct 69.4 % [facility] Comment: Interpretive Data Percent cell count reference ranges are not reported, since discordance with absolute values may lead to misinterpretation of CBC data. Current Interpretive Data was last revised on 2017. Imm gran pct 0.3 % [facility] Comment: Interpretive Data Percent cell count reference ranges are not reported, since discordance with absolute values may lead to misinterpretation of CBC data. Current Interpretive Data was last revised on 2017. Lymphocyte pct 15.7 % [facility] Comment: Interpretive Data Percent cell count reference ranges are not reported, since discordance with absolute values may lead to misinterpretation of CBC data. Current Interpretive Data was last revised on 2017. Monocyte pct 12.4 % [facility] Comment: Interpretive Data Percent cell count reference ranges are not reported, since discordance with absolute values may lead to misinterpretation of CBC data. Current Interpretive Data was last revised on 2017. Eosinophil pct 1.7 % [facility] Comment: Interpretive Data Percent cell count reference ranges are not reported, since discordance with absolute values may lead to misinterpretation of CBC data. Current Interpretive Data was last revised on 2017. Basophil pct 0.5 % [facility] Comment: Interpretive Data Percent cell count reference ranges are not reported, since discordance with absolute values may lead to misinterpretation of CBC data. Current Interpretive Data was last revised on 2017. Blood 02/18/2023 4:26 AM CDT 02/18/2023 4:44 AM CDT Franca DuHythiami GiacomLEDo DO LAB BLOOD ORDERABLE S Final Result Performing Organization Address City/[facility]/ZIP Co de Phone Number [facility] [place] [address] * (ABNORMAL) Vitamin B12 (02/18/2023 4:26 AM CDT) Pathologist [facility] Vitamin B12 1,886(H) 230 - 1,250 pg/mL [facility] Blood 02/18/2023 4:26 AM CDT 02/18/2023 4:45 AM CDT Franca Affinityi GiacomLEDo DO LAB BLOOD ORDERABLE S Final Result [facility] [place] [address] * Folate (02/18/2023 4:26 AM CDT) Folic acid 15.3 >=5.0 ng/mL [facility] Blood 02/18/2023 4:26 AM CDT 02/18/2023 4:45 AM CDT us Franca Dugoadityaski Giacomino DO LAB BLOOD ORDERABLE S Final Result Performing Organization Address City/[facility] Co de Phone Number [facility] [place] [address] * (ABNORMAL) Hemoglobin A1c (02/18/2023 4:26 AM CDT) Pathologist [facility] Hgb A1C 5.8(H) 4.0 - 5.6 % [facility] Estimated Average Glucose 120 mg/dL [facility] Comment: The ADA recommends reporting an estimated Average Glucose (eAG) with all Hemoglobin A1c results using the equation derived from a study of 507 normal and diabetic adults. ??Minority populations were underrepresented and children were not included. ?? (Diabetes Care 2020; 43(S1): S66-S76). ??The eAG is not equivalent to a fasting glucose. Blood 02/18/2023 4:26 AM CDT 02/18/2023 4:49 AM CDT us Francakrysten Rodriguezi Giacomino DO LAB BLOOD ORDERABLE S Final Result Performing Organization Address [facility] [place] [address] * Magnesium (02/18/2023 4:26 AM CDT) [facility] Magnesium 2.0 1.4 - 2.5 mg/dL [facility] Blood 02/18/2023 4:26 AM CDT 02/18/2023 4:50 AM CDT us Franca Dusheriski Giacomino DO LAB BLOOD ORDERABLE S Final Result Performing Organization Address City/[facility] Co de Phone Number [facility] [place] [address] * (ABNORMAL) Basic metabolic panel (02/18/2023 4:26 AM CDT) [facility] Sodium 139 135 - 145 mmol/L [facility] Potassium, pl 3.8 3.3 - 4.9 mmol/L [facility] Chloride 108 97 - 110 mmol/L [facility] CO2 23 22 - 32 mmol/L [facility] Anion gap 8 2 - 15 mmol/L [facility] BUN 9 6 - 25 mg/dL [facility] Creatinine 0.83 0.60 - 1.10 mg/dL [facility] Glucose 111 70 - 199 mg/dL [facility] Comment: Interpretive Data Fasting glucose >/= 126 [...] interpretive data was last revised 2022. Calcium 8.0(L) 8.5 - 10.3 mg/dL [facility] Blood 02/18/2023 4:26 AM CDT 02/18/2023 4:50 AM CDT us Franca Echevarria DO LAB BLOOD ORDERABLE S Final Result [facility] Department [place] [address] * (ABNORMAL) CBC with auto differential (02/18/2023 4:26 AM CDT) [facility] WBC 5.8 3.8 - 9.9 K/cumm [facility] Hgb 8.3(L) 11.9 - 15.5 g/dL [facility] Hct 24.7(L) 35.6 - 45.5 % [facility] Plt 235 150 - 400 K/cumm [facility] MPV 13.3(H) 9.1 - 12.3 fL [facility] RBC 2.75(L) 3.90 - 5.20 M/cumm [facility] MCV 89.8 81.3 - 96.4 fL [facility] MCH 30.2 27.1 - 33.3 pg [facility] MCHC 33.6 32.3 - 35.7 g/dL [facility] RDW CV 13.4 11.1 - 14.9 % [facility] RDW SD 44.1 35.7 - 48.1 fL [facility] NRBC abs 0.00 0.00 - 0.01 K/cumm [facility] Blood 02/18/2023 4:26 AM CDT 02/18/2023 4:44 AM CDT us Franca Echevarria DO LAB BLOOD ORDERABLE S Final Result [facility] Department [place] [address] * (ABNORMAL) aPTT (02/18/2023 2:25 AM CDT) aPTT 64(H) 28 - 38 sec [facility] Comment: Interpretive Data Therapeutic heparin range: 60.0 - 94.0 seconds. Based on correlation with therapeutic heparin activity range of 0.3-0.7 Units/mL. Current interpretive data was last revised on 2020. Blood 02/18/2023 2:25 AM CDT 02/18/2023 2:39 AM CDT Narrative [facility] - 02/18/2023 3:05 AM CDT Draw STAT PTT 6 hrs after initiation of heparin infusion, draw STAT PTT 6 hours after each dose change, and every 6 hours until 2 consecutive PTTs are within therapeutic range. Once two consecutive PTT's are therapeutic (60-94.9 seconds), then draw PTT every AM until heparin is discontinued. us Estella Ellis MD PhD LAB BLOOD ORDERABL ES Final Result [facility] Department [place] [address] * XR Radius Ulna Right 2 Views (02/17/2023 11:25 PM CDT) Anatomical Region Laterality Modality Upper Extremities, Forearm Right Compu christel Radiography 02/18/2023 6:02 AM CDT Impressions 02/18/2023 6:02 AM CDT 1. ??Limited evaluation with possible casted, nondisplaced distal radius fracture Electronically signed by: Dilshad Mcclendon MD, PHD Narrative 02/18/2023 6:02 AM CDT EXAMINATION: Right humerus 2+ views; right forearm 2 views HISTORY: ??Reported right upper extremity fracture FINDINGS: 2 portable radiographs of the right humerus and 2 portable radiographs of the right forearm are limited due to technique and overlying cast. ??There is a suggestion of a nondisplaced distal radius fracture. 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 ??No fracture is noted of the humerus. Procedure Note Dilshad Mcclendon MD PhD - 02/18/2023 EXAMINATION: Right humerus 2+ views; right forearm 2 views HISTORY: Reported right upper extremity fracture FINDINGS: 2 portable radiographs of the right humerus and 2 portable radiographs of the right forearm are limited due to technique and overlying cast. There is a suggestion of a nondisplaced distal radius fracture. 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 No fracture is noted of the humerus. IMPRESSION: 1. Limited evaluation with possible casted, nondisplaced distal radius fracture Electronically signed by: Dilshad Mcclendon MD, PHD us Franca Echevarria DO IMG XR PROCEDURES F inal Result * XR Humerus Right 2 or More Views (02/17/2023 8:55 PM CDT) Anatomical Region Laterality Modality Upper Extremities, Upper Arm Right Com puted Radiography 02/18/2023 6:02 AM CDT Impressions 02/18/2023 6:02 AM CDT 1. ??Limited evaluation with possible casted, nondisplaced distal radius fracture Electronically signed by: Dilshad Mcclendon MD, PHD Narrative 02/18/2023 6:02 AM CDT EXAMINATION: Right humerus 2+ views; right forearm 2 views HISTORY: ??Reported right upper extremity fracture FINDINGS: 2 portable radiographs of the right humerus and 2 portable radiographs of the right forearm are limited due to technique and overlying cast. ??There is a suggestion of a nondisplaced distal radius fracture. 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 ??No fracture is noted of the humerus. Procedure Note Dilshad Mcclendon MD PhD - 02/18/2023 EXAMINATION: Right humerus 2+ views; right forearm 2 views HISTORY: Reported right upper extremity fracture FINDINGS: 2 portable radiographs of the right humerus and 2 portable radiographs of the right forearm are limited due to technique and overlying cast. There is a suggestion of a nondisplaced distal radius fracture. 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 No fracture is noted of the humerus. IMPRESSION: 1. Limited evaluation with possible casted, nondisplaced distal radius fracture Electronically signed by: Dilshad Mcclendon MD, PHD Franca Echevarria DO IMG XR PROCEDURES F inal Result * XR Chest 1 View (02/17/2023 8:50 PM CDT) Anatomical Region Laterality Modality Body, Chest N/A Computed Radiogr aphy 02/18/2023 8:47 AM CDT Impressions 02/18/2023 8:56 AM CDT The current study is compared with the prior radiograph dated 05/10/2017. Right upper quadrant and mediastinal surgical clips. ??Median sternotomy wires are aligned and intact. Small left pleural effusion with associated moderate left basilar atelectasis. ??Trace right pleural effusion with associated mild atelectasis. ??Multifocal pulmonary nodules are better evaluated on CT dated 02/15/2023. ??No pneumothorax. ??Heart size and mediastinal contours are unchanged. Dictated by: Piper Silverman MD The radiology attending physician has personally reviewed this study, and had reviewed and/or edited this written report and agrees with it. Electronically signed by: Ozzy Ureña M.D. Narrative 02/18/2023 8:56 AM CDT EXAMINATION: 1 view chest radiograph Procedure Note Ozzy Ureña MD - 02/18/2023 EXAMINATION: 1 view chest radiograph IMPRESSION: The current study is compared with the prior radiograph dated 05/10/2017. Right upper quadrant and mediastinal surgical clips. Median sternotomy wires are aligned and intact. Small left pleural effusion with associated moderate left basilar atelectasis. Trace right pleural effusion with associated mild atelectasis. Multifocal pulmonary nodules are better evaluated on CT dated 02/15/2023. No pneumothorax. Heart size and mediastinal contours are unchanged. Dictated by: Piper Silverman MD The radiology attending physician has personally reviewed this study, and had reviewed and/or edited this written report and agrees with it. Electronically signed by: Ozzy Ureña M.D. us Franca Waltersacomintali DO IMG XR PROCEDURES F inal Result * CT Body Outside Consult (02/17/2023 8:13 PM CDT) Anatomical Region Laterality Modality Body N/A Computed Tomogra phy 02/18/2023 8:09 AM CDT Impressions 02/18/2023 8:09 AM CDT 1. ??Multifocal solid pulmonary nodules/nodular areas consolidation throughout both lungs. ??While these findings could represent a multifocal pneumonia, given the distribution of the nodules as well as one nodule in the left upper lobe demonstrating a reverse halo, these findings are concerning for multifocal septic emboli. Recommend correlation with echocardiogram to assess for potential cardiac source . 2. ??Nondisplaced acute appearing fracture of the right posterior 10th rib with overlying small volume extrapleural hematoma. ??Additional nondisplaced likely acute fractures of the right anterior 4th through 7th ribs. The findings, conclusions and recommendations within this report do not replace the initial findings, conclusions ??and recommendations made at the facility where the study was performed based upon the imaging and clinical condition at that time. ??Comparison with the prior report and clinical history is necessary. ??The provided images may or may not represent the [employer] source data set and thus may contain changes that may lower the accuracy of this second-opinion interpretation. Electronically signed by: Penelope Pollard 02/18/2023 8:09 AM CDT EXAMINATION: RADIOLOGY CONSULTATION ON OUTSIDE IMAGING STUDY STUDY INITIALLY PERFORMED: 02/15/2023 at [place]. TYPE OF STUDY: Multiple CT images of the chest abdomen pelvis without contrast are provided at the time of this interpretation. CONTRAST ROUTE: No contrast was administered. The protocol was adequate to address the clinical question. The outside final report was not available at the time of this second opinion interpretation. TYPE OF CONSULTATION: Consult on outside imaging study with images submitted through [facility] DATE OF CONSULTATION: 02/18/2023 7:42 AM HISTORY: Atrial fibrillation with RVR and hemodynamic instability COMPARISON: 05/10/2017; cardiac MRI 07/25/2022 FINDINGS: Numerous nodules/nodular areas of consolidation are seen throughout both lungs involving all lobes. ??Many of these nodules are peripheral in distribution. ??Some of nodules have a halo of peripheral groundglass, while at least one nodule in the left upper lobe is peripheral/subpleural in location and also demonstrates a reverse halo with central lucency (series 4, image 47, measuring 2 cm in size). ??There is minimal bibasilar atelectasis. ??No pleural effusion. ??No pneumothorax. Unchanged appearance of the left ventricular apex characterized on prior cardiac MRI as outside medical sales representative of apical variant hypertrophic cardiomyopathy. ??Multivessel severe coronary artery disease. ??No pericardial effusion. ??Postsurgical changes from median sternotomy and coronary artery bypass grafting. No significant thoracic lymphadenopathy. ??The visualized thyroid appears normal. Unchanged appearance of the breast tissues with nodular thickening of the left breast on series 3 image 63 stable since 2017. Normal noncontrast appearance of the right adrenal, spleen,. ??Mild hyperattenuation of the liver may be due to chronic amiodarone usage. The gallbladder surgically absent. ??There is mild central intrahepatic and intrahepatic bile duct dilatation, likely due to reservoir effect from prior cholecystectomy. ??There is a left adrenal myelolipoma measuring approximately 4 cm, which has slightly grown since 2017. ??Fatty pancreatic atrophy. ??Exophytic left renal cyst. No hydronephrosis in either kidney. ??Punctate nonobstructing right renal stone. Uterus present. ??Urinary bladder mildly distended. ??No suspicious adnexal mass No intraperitoneal free air or intraperitoneal free fluid. ??Severe atherosclerosis of the abdominal aorta and visceral branches. ??No abdominal or pelvic lymphadenopathy Appendix nondistended. ??No bowel obstruction present. Bone windows demonstrate T11 vertebral body moderate to severe compression fracture, unchanged from 07/25/2022. ??Severe right hip osteoarthritis. ??Diffuse osteopenia. There is a acute appearing nondisplaced fracture of the right posterior 10th rib with overlying small volume extrapleural hematoma. There are additional nondisplaced fractures of the right anterior 4th, 5th, 6, and 7th ribs, which are age-indeterminate but likely acute as well. Procedure Note Stefanie Burden MD - 02/18/2023 EXAMINATION: RADIOLOGY CONSULTATION ON OUTSIDE IMAGING STUDY STUDY INITIALLY PERFORMED: 02/15/2023 at [place]. TYPE OF STUDY: Multiple CT images of the chest abdomen pelvis without contrast are provided at the time of this interpretation. CONTRAST ROUTE: No contrast was administered. The protocol was adequate to address the clinical question. The outside final report was not available at the time of this second opinion interpretation. TYPE OF CONSULTATION: Consult on outside imaging study with images submitted through [facility] DATE OF CONSULTATION: 02/18/2023 7:42 AM HISTORY: Atrial fibrillation with RVR and hemodynamic instability COMPARISON: 05/10/2017; cardiac MRI 07/25/2022 FINDINGS: Numerous nodules/nodular areas of consolidation are seen throughout both lungs involving all lobes. Many of these nodules are peripheral in distribution. Some of nodules have a halo of peripheral groundglass, while at least one nodule in the left upper lobe is peripheral/subpleural in location and also demonstrates a reverse halo with central lucency (series 4, image 47, measuring 2 cm in size). There is minimal bibasilar atelectasis. No pleural effusion. No pneumothorax. Unchanged appearance of the left ventricular apex characterized on prior cardiac MRI as outside medical sales representative of apical variant hypertrophic cardiomyopathy. Multivessel severe coronary artery disease. No pericardial effusion. Postsurgical changes from median sternotomy and coronary artery bypass grafting. No significant thoracic lymphadenopathy. The visualized thyroid appears normal. Unchanged appearance of the breast tissues with nodular thickening of the left breast on series 3 image 63 stable since 2017. Normal noncontrast appearance of the right adrenal, spleen,. Mild hyperattenuation of the liver may be due to chronic amiodarone usage. The gallbladder surgically absent. There is mild central intrahepatic and intrahepatic bile duct dilatation, likely due to reservoir effect from prior cholecystectomy. There is a left adrenal myelolipoma measuring approximately 4 cm, which has slightly grown since 2017. Fatty pancreatic atrophy. Exophytic left renal cyst. No hydronephrosis in either kidney. Punctate nonobstructing right renal stone. Uterus present. Urinary bladder mildly distended. No suspicious adnexal mass No intraperitoneal free air or intraperitoneal free fluid. Severe atherosclerosis of the abdominal aorta and visceral branches. No abdominal or pelvic lymphadenopathy Appendix nondistended. No bowel obstruction present. Bone windows demonstrate T11 vertebral body moderate to severe compression fracture, unchanged from 07/25/2022. Severe right hip osteoarthritis. Diffuse osteopenia. There is a acute appearing nondisplaced fracture of the right posterior 10th rib with overlying small volume extrapleural hematoma. There are additional nondisplaced fractures of the right anterior 4th, 5th, 6, and 7th ribs, which are age-indeterminate but likely acute as well. IMPRESSION: 1. Multifocal solid pulmonary nodules/nodular areas consolidation throughout both lungs. While these findings could represent a multifocal pneumonia, given the distribution of the nodules as well as one nodule in the left upper lobe demonstrating a reverse halo, these findings are concerning for multifocal septic emboli. Recommend correlation with echocardiogram to assess for potential cardiac source . 2. Nondisplaced acute appearing fracture of the right posterior 10th rib with overlying small volume extrapleural hematoma. Additional nondisplaced likely acute fractures of the right anterior 4th through 7th ribs. The findings, conclusions and recommendations within this report do not replace the initial findings, conclusions and recommendations made at the facility where the study was performed based upon the imaging and clinical condition at that time. Comparison with the prior report and clinical history is necessary. The provided images may or may not represent the [employer] source data set and thus may contain changes that may lower the accuracy of this second-opinion interpretation. Electronically signed by: Stefanie Burden M.D. Aleksey Mendez MD IM CT PROCEDURES Final Result * XR Outside Reference (02/17/2023 8:11 PM CDT) Impressions RADSAMANTHA_JAMES - 02/17/2023 8:11 PM CDT These images are for Reference purposes only and have not been reviewed by [facility]. ??There will be no report generated by a [facility]iologist. Narrative RADFidencioPACS_JAMES - 02/17/2023 8:11 PM CDT EXAMINATION: ??Images For Reference Purposes Only Aleksey Mendez MD IMG XR PROCEDURES Final Result Performing Organization Address [facility] Co de Phone Number [email or web address] * XR Outside Reference (02/17/2023 8:09 PM CDT) Impressions HUDSON_JAMES - 02/17/2023 8:09 PM CDT These images are for Reference purposes only and have not been reviewed by [facility]. ??There will be no report generated by a [facility]iologist. Narrative RADSAMANTHA_JAMES - 02/17/2023 8:09 PM CDT EXAMINATION: ??Images For Reference Purposes Only Aleksey Mendez MD IMG XR PROCEDURES Final Result Performing Organization Address [facility] de Phone Number [email or web address] * Infection Prevention MRSA Only (Staphylococcus aureus) Culture Nasal (02/17/2023 6:29 PM CDT) Report Final Report: Negative VAL[facility] HALL Nasal 02/17/2023 6:29 PM CDT 02/17/2023 7:19 PM CDT Narrative VALENTE HALL - 02/18/2023 8:52 PM CDT Testing performed by [facility] ([phone]). Franca Echevarria DO LAB MICROBIOLOGY - GENERAL ORDERABLES Final Result Performing Organization Address City/[facility] Co de Phone Number VALENTE JAMES [facility] Department [place] [address] * Urine culture Urine (02/17/2023 6:27 PM CDT) Report Final Report: No growth [facility] Urine 02/17/2023 6:27 PM CDT 02/17/2023 10:56 PM CDT Narrative [facility] - 02/20/2023 10:49 AM CDT Urine culture reflexed based upon urinalysis results. Testing performed by [facility] ([phone]) Olimpia Long MD LAB MICROBIOLOGY - GENERAL ORDERABLES Final Result Performing Organization Address [facility] Co de Phone Number [facility] Department [place] [address] * (ABNORMAL) Urinalysis, microscopic only (02/17/2023 6:27 PM CDT) WBC, ur 11-20(A) 0 - 5 /HPF [facility] RBC, ur 21-50(A) 0 - 2 /HPF [facility] Mucous, ur Present(A) [facility] Culture Reflex Comment Reflex to urine culture will be performed. VALENTE RAMIREZ Urine 02/17/2023 6:27 PM CDT 02/17/2023 6:37 PM CDT Olimpia Long MD LAB URINE ORDERAB LES Final Result Performing Organization Address City/[facility]/ZIP Co de Phone Number [facility] Department [place] [address] * (ABNORMAL) Urinalysis reflex to microscopic and culture Urine (02/17/2023 6:27 PM CDT) Color, ur Straw Yellow [facility] Clarity, ur Clear Clear [facility] Specific gravity, ur 1.016 1.003 - 1.030 [facility] pH, urine 6.5 [facility] Protein, ur ql 1+(A) Negative [facility] Glucose, ur ql Negative Negative [facility] Ketones, ur Negative Negative [facility] Bilirubin, ur Negative Negative [facility] Blood, ur 2+(A) Negative [facility] Urobilinogen, ur <2.0 <2.0 mg/dL [facility] Nitrite, ur Negative Negative [facility] Leukocyte esterase, ur Trace(A) Negative [facility] UA reflex comment Reflex to microscopic UA will be performed. [facility] Urine 02/17/2023 6:27 PM CDT 02/17/2023 6:37 PM CDT Narrative [facility] - 02/17/2023 6:42 PM CDT ?? Urine pH is affected by diet, medications, systemic acid-base disturbances, and renal tubular function. ??pH may affect urinary stone formation. ??For example, urine pH below 6.0 may help reduce the tendency for calcium phosphate stones and pH greater than 6.0 may reduce the tendency for uric acid stone formation. Source: [employer]. Last revised 06-26-2017 us Olimpia Long MD LAB MICROBIOLOGY - GENERAL ORDERABLES Final Result [facility] RAMIREZ [facility] Department [place] [address] * Blood culture Blood (02/17/2023 5:47 PM CDT) Report Final Report: No growth [facility] Blood 02/17/2023 5:47 PM CDT 02/17/2023 5:59 PM CDT Narrative [facility]E [facility] - 02/22/2023 7:00 AM CDT Collection->Peripheral 1. ?Blood cultures are incubated for 4 days on a continuously monitored blood culture system. The first report of a negative culture is issued within 24 hours of receipt of the specimen in the laboratory. 2. ?Positive culture results are reported as soon as they are detected. 3. ?The most important factor for detection of microbes in the setting of bloodstream infection is the volume of blood submitted for culture. Failure to collect an optimal blood volume can result in false negative blood cultures. For pediatric patients, the recommended blood volume to collect is 1 mL of blood per year of patient age (up to 20 mL) per blood culture set. For adult patients, 20 mL of blood, divided equally between aerobic and anaerobic blood culture bottles, is recommended for each blood culture set. 4. ?For blood cultures with Gram-positive cocci, a rapid molecular test for organism identification may be performed using the [employer] Gram-Positive Blood Culture Assay. This assay detects microbial DNA in positive blood culture broth via hybridization of target DNA to capture oligonucleotides on a microarray. This assay has been cleared by the [place] Food and Drug Administration and its performance characteristics have been verified by the [facility]. 5. ?For questions about this culture, contact the Microbiology Laboratory at [phone]. Interpretive data was last revised on 2019. Olimpia Long MD LAB MICROBIOLOGY - GENERAL ORDERABLES Final Result VALNETE RAMIREZ [facility] Department [place] [address] * Blood culture Blood (02/17/2023 5:47 PM CDT) Report Final Report: No growth [facility] RAMIREZ Blood 02/17/2023 5:47 PM CDT 02/17/2023 5:58 PM CDT Narrative VALENTE RAMIREZ - 02/22/2023 7:00 AM CDT Collection->Peripheral 1. ?Blood cultures are incubated for 4 days on a continuously monitored blood culture system. The first report of a negative culture is issued within 24 hours of receipt of the specimen in the laboratory. 2. ?Positive culture results are reported as soon as they are detected. 3. ?The most important factor for detection of microbes in the setting of bloodstream infection is the volume of blood submitted for culture. Failure to collect an optimal blood volume can result in false negative blood cultures. For pediatric patients, the recommended blood volume to collect is 1 mL of blood per year of patient age (up to 20 mL) per blood culture set. For adult patients, 20 mL of blood, divided equally between aerobic and anaerobic blood culture bottles, is recommended for each blood culture set. 4. ?For blood cultures with Gram-positive cocci, a rapid molecular test for organism identification may be performed using the [employer] Gram-Positive Blood Culture Assay. This assay detects microbial DNA in positive blood culture broth via hybridization of target DNA to capture oligonucleotides on a microarray. This assay has been cleared by the [place] Food and Drug Administration and its performance characteristics have been verified by the [facility]. 5. ?For questions about this culture, contact the Microbiology Laboratory at [phone]. Interpretive data was last revised on 2019. Olimpia Long MD LAB MICROBIOLOGY - GENERAL ORDERABLES Final Result Performing Organization Address City/[facility]/ZIP Co de Phone Number [facility] Department [place] [address] * Type and screen (02/17/2023 5:44 PM CDT) ABO Rh B Negative [facility] [facility] Cheri, indirect Negative [facility] Blood 02/17/2023 5:44 PM CDT 02/17/2023 6:10 PM CDT Narrative [facility] - 02/17/2023 6:56 PM CDT Has the patient had Daratumumab or Isatuximab in the past 6 months?->Unknown Olimpia Long MD LAB BLOOD BANK TE ST ORDERABLES Final Result [facility] [place] [address] * Lactate (02/17/2023 5:44 PM CDT) Lactate 1.6 0.7 - 2.0 mmol/L [facility] Blood 02/17/2023 5:44 PM CDT 02/17/2023 6:00 PM CDT Olimpia Long MD LAB BLOOD ORDERAB LES Final Result [facility] Department [place] [address] * Troponin I high-sensitivity (02/17/2023 5:44 PM CDT) Trop I hs 11 <=17 ng/L [facility] Comment: Interpretive Data For further hscTnI resources including the diagnostic algorithm and an aid in interpretation, copy and paste this link: [email or web address]/[email or web address] Current Interpretive Data last revised 2019. Blood 02/17/2023 5:44 PM CDT 02/17/2023 6:00 PM CDT Olimpia Long MD LAB BLOOD ORDERAB LES Final Result Performing Organization Address [facility] [place] [address] * Vancomycin level random (02/17/2023 5:43 PM CDT) Pathologist [facility] Vancomycin random 16.5 mcg/mL [facility] Comment: Interpretive Data No reference ranges have been established for random drug levels. Current Interpretive Data was last revised on 2020. Blood 02/17/2023 5:43 PM CDT 02/17/2023 6:00 PM CDT Franca Echevarria DO LAB BLOOD ORDERABLE S Final Result Performing Organization Address City/[facility]/ZIP Co de Phone Number [facility] [place] [address] * (ABNORMAL) eGFR (02/17/2023 5:43 PM CDT) eGFR 67(L) 90 - 130 mL/min/1. 73 m2 [facility] Comment: Interpretive Data Reference Interval Normal ?>/= [...] interpretive data was last reviewed 2021. Blood 02/17/2023 5:43 PM CDT 02/17/2023 6:00 PM CDT Franca Echevarria DO LAB BLOOD ORDERABLE S Final Result [facility] Department [place] [address] * Magnesium (02/17/2023 5:43 PM CDT) Pathologist [facility] Magnesium 2.0 1.4 - 2.5 mg/dL [facility] Blood 02/17/2023 5:43 PM CDT 02/17/2023 5:56 PM CDT us Franca Dona Echevarria DO LAB BLOOD ORDERABLE S Final Result [facility] Department [place] [address] * (ABNORMAL) Differential, auto (02/17/2023 5:43 PM CDT) Neutrophil abs 4.8 1.7 - 6.5 K/cumm [facility] Imm gran abs 0.1 0.0 - 0.1 K/cumm [facility] Lymphocyte abs 0.6(L) 0.8 - 3.3 K/cumm [facility] Monocyte abs 0.6 0.2 - 0.8 K/cumm [facility] Eosinophil abs 0.1 0.0 - 0.5 K/cumm [facility] Basophil abs 0.0 0.0 - 0.1 K/cumm [facility] Neutrophil pct 78.8 % [facility] Comment: Interpretive Data Percent cell count reference ranges are not reported, since discordance with absolute values may lead to misinterpretation of CBC data. Current Interpretive Data was last revised on 2017. Imm gran pct 0.8 % [facility] Comment: Interpretive Data Percent cell count reference ranges are not reported, since discordance with absolute values may lead to misinterpretation of CBC data. Current Interpretive Data was last revised on 2017. Lymphocyte pct 9.4 % [facility] Comment: Interpretive Data Percent cell count reference ranges are not reported, since discordance with absolute values may lead to misinterpretation of CBC data. Current Interpretive Data was last revised on 2017. Monocyte pct 9.4 % [facility] Comment: Interpretive Data Percent cell count reference ranges are not reported, since discordance with absolute values may lead to misinterpretation of CBC data. Current Interpretive Data was last revised on 2017. Eosinophil pct 1.3 % [facility] Comment: Interpretive Data Percent cell count reference ranges are not reported, since discordance with absolute values may lead to misinterpretation of CBC data. Current Interpretive Data was last revised on 2017. Basophil pct 0.3 % [facility] Comment: Interpretive Data Percent cell count reference ranges are not reported, since discordance with absolute values may lead to misinterpretation of CBC data. Current Interpretive Data was last revised on 2017. Blood 02/17/2023 5:43 PM CDT 02/17/2023 6:00 PM CDT Franca Carcamo Grociotali DO LAB BLOOD ORDERABLE S Final Result Performing Organization Address City/[facility] Co de Phone Number [facility] Department [place] [address] * (ABNORMAL) CBC with auto differential (02/17/2023 5:43 PM CDT) WBC 6.1 3.8 - 9.9 K/cumm [facility] Hgb 8.2(L) 11.9 - 15.5 g/dL [facility] Hct 25.9(L) 35.6 - 45.5 % [facility] Plt 224 150 - 400 K/cumm [facility] MPV 12.6(H) 9.1 - 12.3 fL [facility] RBC 2.77(L) 3.90 - 5.20 M/cumm [facility] MCV 93.5 81.3 - 96.4 fL [facility] MCH 29.6 27.1 - 33.3 pg [facility] MCHC 31.7(L) 32.3 - 35.7 g/dL [facility] RDW CV 13.2 11.1 - 14.9 % [facility] RDW SD 45.1 35.7 - 48.1 fL [facility] NRBC abs 0.00 0.00 - 0.01 K/cumm [facility] Blood 02/17/2023 5:43 PM CDT 02/17/2023 6:00 PM CDT Franca Carcamo [employer]ali DO LAB BLOOD ORDERABLE S Final Result [facility] Department [place] [address] * (ABNORMAL) Comprehensive metabolic panel (02/17/2023 5:43 PM CDT) Sodium 139 135 - 145 mmol/L [facility] Potassium, pl 4.2 3.3 - 4.9 mmol/L [facility] Chloride 108 97 - 110 mmol/L [facility] CO2 21(L) 22 - 32 mmol/L [facility] Anion gap 10 2 - 15 mmol/L [facility] BUN 9 6 - 25 mg/dL [facility] Creatinine 0.89 0.60 - 1.10 mg/dL [facility] Glucose 120 70 - 199 mg/dL [facility] Comment: Interpretive Data Fasting glucose >/= 126 [...] interpretive data was last revised 2022. Calcium 7.8(L) 8.5 - 10.3 mg/dL [facility] Bilirubin, total 0.3 0.1 - 1.2 mg/dL [facility] Protein, pl 5.9(L) 6.5 - 8.5 g/dL [facility] Albumin 2.9(L) 3.5 - 5.0 g/dL [facility] Alk phos 116 40 - 130 Units/L [facility] ALT 16 7 - 45 Units/L [facility] AST 17 10 - 45 Units/L [facility] Blood 02/17/2023 5:43 PM CDT 02/17/2023 5:56 PM CDT us Franca Dugolenski Giacomino DO LAB BLOOD ORDERABLE S Final Result Performing Organization Address [facility] [place] [address] * (ABNORMAL) aPTT (02/17/2023 5:43 PM CDT) aPTT 45(H) 28 - 38 sec [facility] Comment: Interpretive Data Therapeutic heparin range: 60.0 - 94.0 seconds. Based on correlation with therapeutic heparin activity range of 0.3-0.7 Units/mL. Current interpretive data was last revised on 2020. Blood 02/17/2023 5:4 3 PM CDT 02/17/2023 6:11 PM CDT Narrative [facility] - 02/17/2023 6:21 PM CDT Baseline prior to heparin initiation Franca Echevarria DO [facility] BLOOD ORDERABLE S Final Result Performing Organization Address [facility] de Phone Number [facility] [place] [address] * (ABNORMAL) Protime-INR (02/17/2023 5:43 PM CDT) PT 20.3(H) 10.3 - 13.7 sec [facility] INR 1.78(H) 0.90 - 1.20 [facility] Comment: Interpretive data Oral anticoagulant therapeutic ranges: Venous thromboembolism prophylaxis or treatment: 2.0-3.0 CARDIOLOGY Standard range: 2.0-3.0 High-intensity range: 2.5-3.5 Refer to indication-specific guidelines for appropriate target ranges for prosthetic heart valve replacement. Current interpretive data was last revised on 2019. Blood 02/17/2023 5:43 PM CDT 02/17/2023 6:11 PM CDT Narrative [facility] - 02/17/2023 6:21 PM CDT Baseline prior to heparin initiation Franca Echevarria DO LAB BLOOD ORDERABLE S Final Result [facility] [place] [address] * ECG 12 lead (02/17/2023 5:19 PM CDT) Ventricular Rate EKG/Min 143 BPM [facility] QRS-Interval (MSEC) 96 ms [facility] QT-Interval (MSEC) 310 ms [facility] QTc 478 ms [facility] R Hayti 36 degrees [facility] T Hayti 205 degrees [facility] Diagnosis Atrial fibrillation with rapid ventricular response Minimal voltage criteria for LVH, may be normal variant ( [place] product ) ST & T wave abnormality, consider lateral ischemia Abnormal ECG When compared with ECG of 20-JAN-2023 07:41, No significant change was found Confirmed by EDWAR RODRIGUEZ M.D ([id number]) on 02/18/2023 8:23:15 PM [facility] 02/17/2023 5:19 PM CDT 02/18/2023 8:23 PM CDT us Franca Goldbergmintali DO ECG ORDERABLES Fin al Result [facility] documented in this encounter Visit Diagnoses Diagnosis A-fib (CMS/HCC) (HCC)- Primary Atrial fibrillation Paroxysmal atrial fibrillation (CMS/HCC) (HCC) Atrial fibrillation Longstanding persistent atrial fibrillation (CMS/HCC) (HCC) Paroxysmal atrial fibrillation (CMS/HCC) (HCC) Atrial fibrillation documented in this encounter Admitting Diagnoses Diagnosis A-fib (CMS/HCC) (HCC) Atrial fibrillation Paroxysmal atrial fibrillation (CMS/HCC) (HCC) Atrial fibrillation documented in this encounter Administered Medications Inactive Administered Medications - up to 3 most recent administrations Medication Order MAR Action Action Date Dose Rate Site acetaminophen (TYLENOL) tablet 1,000 mg 1,000 mg, oral, Every 6 hours PRN, fever, 1st line for pain, Starting on 02/17/23 at 2018 Given 02/18/2023 4:02 PM CDT 1,000 mg acetaminophen (TYLENOL) tablet 1,000 mg 1,000 mg, oral, 3 times daily, First dose (after last modification) on Fri03/18/23 at 1600 Given 03/21/2023 8:44 AM CDT 1,000 mg Given 03/20/2023 9:37 PM CDT 1,000 mg Given 03/20/2023 3:22 PM CDT 1,000 mg acetaminophen (TYLENOL) tablet 650 mg 650 mg, oral, Every 6 hours scheduled, First dose (after last modification) on Fri03/17/23 at 1200 Given 03/17/2023 5:38 PM CDT 650 mg Given 03/17/2023 11:27 AM CDT 650 mg amiodarone (PACERONE) tablet 200 mg 200 mg, oral, Daily, First dose on Fri02/27/23 at 0900 Given 03/04/2023 9:33 AM CDT 200 mg Given 03/03/2023 8:49 AM CDT 200 mg Given 03/02/2023 7:55 AM CDT 200 mg amiodarone (PACERONE) tablet 200 mg 200 mg, oral, Once, On Fri03/04/23 at 1415, For 1 dose Given 03/04/2023 2:16 PM CDT 200 mg amiodarone (PACERONE) tablet 200 mg 200 mg, oral, Daily, First dose (after last modification) on Fri03/11/23 at 0900 Given 03/14/2023 8:56 AM CDT 200 mg Given 03/13/2023 9:02 AM CDT 200 mg Given 03/12/2023 8:35 AM CDT 200 mg amiodarone (PACERONE) tablet 400 mg 400 mg, oral, 3 times daily, First dose on Fri02/23/23 at 1600 Given 02/26/2023 5:00 PM CDT 400 mg Given 02/26/2023 9:09 AM CDT 400 mg Given 02/25/2023 9:44 PM CDT 400 mg amiodarone (PACERONE) tablet 400 mg 400 mg, oral, 2 times daily, First dose on Fri03/04/23 at 2100 Given 03/07/2023 8:39 PM CDT 400 mg Given 03/07/2023 8:36 AM CDT 400 mg Given 03/06/2023 9:18 PM CDT 400 mg amiodarone (PACERONE) tablet 400 mg 400 mg, oral, Daily, First dose (after last modification) on 03/08/23 at 0915 Given 03/10/2023 7:52 AM CDT 400 mg Given 03/09/2023 8:23 AM CDT 400 mg Given 03/08/2023 8:48 AM CDT 400 mg amiodarone (PACERONE) tablet 400 mg 400 mg, oral, Daily, First dose (after last modification) on 03/15/23 at 0900, Please administer with food Given 03/21/2023 8:45 AM CDT 400 mg Given 03/20/2023 9:31 AM CDT 400 mg Given 03/19/2023 8:36 AM CDT 400 mg amiodarone in dextrose (NEXTERONE) 360 mg/200 mL (1.8 mg/mL) infusion (premix) 1 mg/min (33.3333 mL/hr, rounded to 33.3 mL/hr), 1.8 mg/mL, intravenous, Continuous, Starting on Fri02/17/23 at 1800, Until 02/23/23 at 1213, Use filter 0.22 micron or less, Routine Rate/Dose Verify 02/23/2023 12:00 PM CDT 1 mg/min 33.3 mL/hr Rate/Dose Verify 02/23/2023 11:00 AM CDT 1 mg/min 33.3 m L/hr New Bag 02/23/2023 10:03 AM CDT 1 mg/min 33.3 mL/hr apixaban (ELIQUIS) tablet 5 mg 5 mg, oral, 2 times daily, First dose on Fri02/24/23 at 1200, Nurse to discontinue heparin infusion order and associated bolus at first administration of apixaban using ? order condition met? order source, Indications: atrial fibrillationIndications:atrial fibrillation Given 03/21/2023 8:45 AM CDT 5 mg Given 03/20/2023 9:37 PM CDT 5 mg Given 03/20/2023 9:32 AM CDT 5 mg aspirin enteric coated tablet 81 mg 81 mg, oral, Daily, First dose on Fri02/17/23 at 1800, Do not crush, chew, cut, dissolve, open or otherwise manipulate tablet/capsule. Given 02/17/2023 7:03 PM CDT 81 mg atorvastatin (LIPITOR) tablet 80 mg 80 mg, oral, Nightly, First dose on Fri02/17/23 at 2100, at bedtime. Given 03/20/2023 9:37 PM CDT 80 mg Given 03/19/2023 9:27 PM CDT 80 mg Given 03/18/2023 9:45 PM CDT 80 mg calcium carbonate-vitamin D3 1,250mg (500mg elemental) - 5 mcg (200 units) per tablet 1 tablet 1 tablet, oral, Daily, First dose on Fri02/17/23 at 1800 Given 03/21/2023 8:45 AM CDT 1 tablet Given 03/20/2023 9:31 AM CDT 1 tablet Given 03/19/2023 8:35 AM CDT 1 tablet camphor-menthoL (SARNA) 0.5-0.5 % lotion topical, Every 6 hours PRN, itching, Starting on 02/22/23 at 2105, Apply to affected area: arm, Laterality: Left Given 02/22/2023 10:20 PM CDT 1 Application cefepime (MAXIPIME) 2,000 mg/20 mL in sterile water (premix) 2,000 mg 2,000 mg, intravenous, at 240 mL/hr, Administer over 5 Minutes, Every 12 hours scheduled, First dose on Concha 02/20/23 at 2015, Indications: Skin/Soft Tissue InfectionIndications:Skin/Sof t Tissue Infection New Bag 02/21/2023 9:03 AM CDT 2,000 mg 240 mL/hr New Bag 02/20/2023 8:30 PM CDT 2,000 mg 240 mL/hr ceftaroline (TEFLARO) 400 mg in sodium chloride 0.9% 40 mL 400 mg, intravenous, at 50 mL/hr, Administer over 60 Minutes, Every 12 hours scheduled, First dose on Fri03/11/23 at 1330, For 11 doses, Indications: Blood Stream/Endovascular InfectionIndications:Blood Stream/Endovascular Infection New Bag 03/16/2023 5:15 PM CDT 400 mg 5 0 mL/hr New Bag 03/16/2023 6:26 AM CDT 400 mg 50 mL/hr New Bag 03/15/2023 5:30 PM CDT 400 mg 50 mL/hr clopidogreL (PLAVIX) tablet 75 mg 75 mg, oral, Daily, First dose on Fri02/17/23 at 1800 Given 03/21/2023 8:45 AM CDT 75 mg Given 03/20/2023 9:32 AM CDT 75 mg Given 03/19/2023 8:36 AM CDT 75 mg diclofenac sodium (VOLTAREN) 1 % gel 2 g 2 g, topical, 3 times daily, First dose on Fri03/04/23 at 0945, Use dosing card to measure dose, Apply to affected area: leg, back, Laterality: Bilateral Given 03/21/2023 8:44 AM CDT 2 g Given 03/20/2023 9:50 PM CDT 2 g Given 03/20/2023 10:02 AM CDT 2 g digoxin (LANOXIN) injection 250 mcg 250 mcg, intravenous, Administer over 5 Minutes, Once, On Fri02/17/23 at 2145, For 1 dose, Indications: Ventricular Rate Control in Atrial FibrillationIndications:Ventricular Rate Control in Atrial Fibrillation Given 02/17/2023 9:43 PM CDT 250 mcg digoxin (LANOXIN) injection 250 mcg 250 mcg, intravenous, Administer over 5 Minutes, Once, On Fri02/18/23 at 0230, For 1 dose, Indications: Ventricular Rate Control in Atrial FibrillationIndications:Ventricular Rate Control in Atrial Fibrillation Given 02/18/2023 2:26 AM CDT 250 mcg digoxin (LANOXIN) injection 250 mcg 250 mcg, intravenous, Administer over 5 Minutes, Once, On Fri02/18/23 at 0715, For 1 dose, Indications: Ventricular Rate Control in Atrial FibrillationIndications:Ventricular Rate Control in Atrial Fibrillation Given 02/18/2023 6:51 AM CDT 250 mcg digoxin (LANOXIN) injection 250 mcg 250 mcg, intravenous, Administer over 5 Minutes, Once, On Fri02/18/23 at 1100, For 1 dose, Indications: Ventricular Rate Control in Atrial FibrillationIndications:Ventricular Rate Control in Atrial Fibrillation Given 02/18/2023 10:31 AM CDT 250 mcg digoxin (LANOXIN) tablet 125 mcg 125 mcg, oral, Every 24 hours, First dose on Fri02/19/23 at 0800, Indications: Ventricular Rate Control in Atrial FibrillationIndications:Ventricular Rate Control in Atrial Fibrillation Given 02/26/2023 8:45 AM CDT 125 mcg Given 02/25/2023 9:10 AM CDT 125 mcg Given 02/24/2023 8:38 AM CDT 125 mcg ezetimibe (ZETIA) tablet 10 mg 10 mg, oral, Daily, First dose on 02/17/23 at 1800 Given 03/21/2023 8:44 AM CDT 10 mg Given 03/20/2023 9:32 AM CDT 10 mg Given 03/19/2023 8:35 AM CDT 10 mg furosemide (LASIX) 10 mg/mL injection 20 mg 20 mg, intravenous, Once, On Fri02/19/23 at 1600, For 1 dose, For IV push: administer doses < 160 mg at a rate of 20 -40 mg/min. Doses >/= 160 mg should be administered no faster than 4 mg/min. Room temperature only Given 02/19/2023 4:3 2 PM CDT 20 mg furosemide (LASIX) tablet 40 mg 40 mg, oral, 2 times daily (for diuretics), First dose on Fri03/02/23 at 0930 Given 03/02/2023 3:11 PM CDT 40 mg furosemide (LASIX) tablet 40 mg 40 mg, oral, Daily, First dose (after last modification) on Fri03/04/23 at 0900, On hold since Fri03/04/2023 at 1345 until manually unheld Given 03/04/2023 9:34 AM CDT 40 mg gabapentin (NEURONTIN) capsule 200 mg 200 mg, oral, 2 times daily, First dose (after last modification) on Fri03/06/23 at 2100 Given 03/21/2023 8:44 AM CDT 200 mg Given 03/20/2023 9:37 PM CDT 200 mg Given 03/20/2023 9:31 AM CDT 200 mg gabapentin (NEURONTIN) tablet 600 mg 600 mg, oral, 2 times daily, First dose on Fri02/18/23 at 1200 Given 03/06/2023 8:40 AM CDT 600 mg Given 03/05/2023 9:13 PM CDT 600 mg Given 03/05/2023 9:03 AM CDT 600 mg heparin 1,000 unit/mL injection 2,000 Units 2,000 Units, intravenous, Every 6 hours PRN, PTT 40-50.9 seconds, Starting on Fri02/17/23 at 1722, Subsequent bolus during heparin infusion., Indications: atrial fibrillationIndications:atrial fibrillation Given 02/19/2023 7:35 PM CDT 2,000 Units Given 02/19/2023 6:07 AM CDT 2,000 Units heparin 1,000 unit/mL injection 5,000 Units 5,000 Units (rounded from 4,980 Units = 60 Units/kg ? 83 kg), intravenous, Once, On Fri02/17/23 at 1800, For 1 dose, Initial bolus prior to starting heparin infusion. Do not adjust initial bolus based on patient PTT., Indications: atrial fibrillationIndications: atrial fibrillation Given 02/17/2023 7:55 PM CDT 5,000 Units heparin in 0.9% sodium chloride 25,000 unit/250 mL infusion (premix) 0-33 Units/kg/hr ? 83 kg (0-27.39 mL/hr), intravenous, Titrated, Starting on Fri02/17/23 at 1800, WEIGHT-BASED HEPARIN INFUSION Initial dose: 14 units/kg/hour Adjust infusion based upon nomogram: PTT less than 40 seconds: Bolus if ordered (see PRN bolus order) , then increase infusion dose 3 units/kg/hour PTT 40 - 50.9 seconds: Bolus if ordered (see PRN bolus order), then increase infusion dose 2 units/kg/hour PTT 51 - 59.9 seconds: No bolus, increase infusion dose 1 unit/kg/hour PTT 60 - 94.9 seconds: No change PTT 95 - 104.9 seconds: No bolus, decrease infusion dose 1 unit/kg/hour PTT 105 -114.9 seconds: Hold infusion for 30 minutes, then decrease infusion dose 2 units/kg/hour PTT 115 or greater seconds: Hold infusion for 1 hour, then decrease infusion dose 3 units/kg/hour Draw STAT PTT 6 hrs after initiation of heparin infusion, draw STAT PTT 6 hours after each dose change, and every 6 hours until 2 consecutive PTTs are within therapeutic range. Once two consecutive PTT's are therapeutic (60-94.9 seconds), then draw PTT every AM until heparin is discontinued., Indications: atrial fibrillationIndications: atrial fibrillation Rate/Dose Verify 02/24/2023 11:00 AM CDT 14 Units/kg/hr 11.62 mL/hr New Bag 02/24/2023 10:23 AM CDT 14 Units/kg/hr 11.62 mL /hr Rate/Dose Verify 02/24/2023 10:00 AM CDT 14 Units/kg/hr 11 .62 mL/hr ioversoL (OPTIRAY 350) syringe 100 mL 100 mL, intravenous, Once in imaging, contrast, Starting on Fri02/21/23 at 1423, For 1 dose Contrast Given 02/21/2023 2:35 PM CDT 94 mL ioversoL (OPTIRAY 350) syringe 100 mL 100 mL, intravenous, Once in imaging, contrast, Starting on Fri03/16/23 at 2201, For 1 dose Contrast Given 03/16/2023 10:31 PM CDT 88 mL ioversoL (OPTIRAY 350) syringe 75 mL 75 mL, intravenous, Once in imaging, contrast, Starting on Fri02/18/23 at 1357, For 1 dose Contrast Given 02/18/2023 2:12 PM CDT 75 mL Lactated Ringer's (LR) bolus 1,000 mL 1,000 mL, intravenous, at 250 mL/hr, Administer over 4 Hours, Once, On Fri03/09/23 at 1030, For 1 dose New Bag 03/09/2023 11:37 AM CDT 1,000 mL 250 mL/hr Lactated Ringer's (LR) bolus 1,000 mL 1,000 mL, intravenous, at 500 mL/hr, Administer over 2 Hours, Once, On Fri03/11/23 at 1230, For 1 dose New Bag 03/11/2023 12:20 PM CDT 1,000 mL 500 mL/hr Lactated Ringer's (LR) bolus 1,000 mL 1,000 mL, intravenous, at 250 mL/hr, Administer over 4 Hours, Once, On Fri03/12/23 at 1445, For 1 dose New Bag 03/12/2023 3:03 PM CDT 1,000 mL 250 mL/hr Lactated Ringer's (LR) bolus 1,000 mL 1,000 mL, intravenous, at 250 mL/hr, Administer over 4 Hours, Once, On Fri03/14/23 at 1015, For 1 dose New Bag 03/14/2023 9:48 AM CDT 1,000 mL 250 mL/hr Lactated Ringer's (LR) bolus 1,000 mL 1,000 mL, intravenous, at 250 mL/hr, Administer over 4 Hours, Once, On Fri03/16/23 at 1145, For 1 dose New Bag 03/16/2023 11:21 AM CDT 1,000 mL 250 mL/hr Lactated Ringer's (LR) bolus 1,000 mL 1,000 mL, intravenous, at 250 mL/hr, Administer over 4 Hours, Once, On Fri03/17/23 at 0845, For 1 dose New Bag 03/17/2023 8:45 AM CDT 1,000 mL 250 mL/hr Lactated Ringer's (LR) bolus 500 mL 500 mL, intravenous, at 125 mL/hr, Administer over 4 Hours, Once, On Fri03/05/23 at 1300, For 1 dose New Bag 03/05/2023 12:37 PM CDT 500 mL 125 mL/hr Lactated Ringer's (LR) bolus 500 mL 500 mL, intravenous, at 1,000 mL/hr, Administer over 30 Minutes, Once, On Fri03/06/23 at 0215, For 1 dose New Bag 03/06/2023 1:46 AM CDT 500 mL 1000 mL/hr Lactated Ringer's (LR) bolus 500 mL 500 mL, intravenous, at 125 mL/hr, Administer over 4 Hours, Once, On Fri03/06/23 at 1445, For 1 dose New Bag 03/06/2023 3:17 PM CDT 500 mL 125 mL/hr Lactated Ringer's (LR) bolus 500 mL 500 mL, intravenous, at 250 mL/hr, Administer over 2 Hours, Once, On Fri03/07/23 at 1615, For 1 dose New Bag 03/07/2023 5:14 PM CDT 500 mL 250 mL/hr Lactated Ringer's (LR) bolus 500 mL 500 mL, intravenous, at 125 mL/hr, Administer over 4 Hours, Once, On Fri03/20/23 at 1015, For 1 dose New Bag 03/20/2023 9:56 AM CDT 500 mL 125 mL/hr Lactated Ringer's (LR) infusion 50 mL/hr, intravenous, Continuous, Starting on Fri03/11/23 at 1630, For 1 day Rate/Dose Verify 03/11/2023 7:00 PM CDT 50 mL/hr 50 mL/hr New Bag 03/11/2023 4:01 PM CDT 50 mL/hr 50 mL/hr lidocaine (LIDODERM) 5 % patch 1 patch 1 patch, transdermal, Administer over 12 Hours, Daily, First dose on Fri03/03/23 at 1745, Do not cover the holes on the top side of the patch., Apply to affected area: chest Medication Applied 03/21/2023 8:43 AM CDT 1 patch Other (Comment) Medication Applied 03/20/2023 9:32 AM CDT 1 patch Other (Comment) Medication Applied 03/19/2023 8:42 AM CDT 1 patch Other (Comment) lidocaine (LIDODERM) 5 % patch 2 patch 2 patch, transdermal, Administer over 12 Hours, Daily, First dose on Fri02/17/23 at 2100, Do not cover the holes on the top side of the patch., Apply to affected area: chest, back Medication Applied 03/02/2023 9:00 PM CDT 2 patches Other (Comment) Medication Applied 03/01/2023 8:11 PM CDT 2 patches Other (Comment) Medication Applied 02/28/2023 8:41 PM CDT 2 patches Other (Comment) lidocaine (LIDODERM) 5 % patch 2 patch 2 patch, transdermal, Administer over 12 Hours, Daily, First dose on Fri03/04/23 at 0945, Do not cover the holes on the top side of the patch., Apply to affected area: back Medication Applied 03/21/2023 8:44 AM CDT 2 patches Other (Comment) Medication Applied 03/20/2023 9:30 AM CDT 2 patches Other (Comment) Medication Applied 03/19/2023 8:38 AM CDT 2 patches Other (Comment) linaCLOtide (LINZESS) capsule 145 mcg 145 mcg, oral, Daily before breakfast, First dose on Fri02/18/23 at 0730, Do not crush - May open and disperse in water 30 mL, swirl for at least 20 seconds. Administer immediately. Repeat process if any beads remain behind. Flush. 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Indications:Constipation Predominant Irritable Bowel Syndrome Given 03/18/2023 9:24 AM CDT 145 mcg Given 03/12/2023 8:33 AM CDT 145 mcg Given 02/22/2023 9:02 AM CDT 145 mcg linezolid (ZYVOX) tablet 600 mg 600 mg, oral, 2 times daily, First dose on Fri03/03/23 at 2100, Take with food, Indications: SepsisIndications:Sepsis Given 03/11/2023 9:07 AM CDT 600 mg Given 03/10/2023 7:52 AM CDT 600 mg Given 03/09/2023 8:07 PM CDT 600 mg magnesium sulfate 2 g/50 mL in water (premix) 2 g 2 g, intravenous, Administer over 60 Minutes, Once, On Fri02/19/23 at 0630, For 1 dose New 02/19/2023 6:07 AM CDT 2 g magnesium sulfate 2 g/50 mL in water (premix) 2 g 2 g, intravenous, Administer over 60 Minutes, Once, On Fri02/20/23 at 0600, For 1 dose New 02/20/2023 5:43 AM CDT 2 g magnesium sulfate 2 g/50 mL in water (premix) 2 g 2 g, intravenous, Administer over 60 Minutes, Once, On Fri02/21/23 at 2230, For 1 dose New 02/21/2023 10:42 PM CDT 2 g magnesium sulfate 2 g/50 mL in water (premix) 2 g 2 g, intravenous, Administer over 60 Minutes, Once, On 02/22/23 at 2145, For 1 dose New 02/22/2023 10:19 PM CDT 2 g magnesium sulfate 2 g/50 mL in water (premix) 2 g 2 g, intravenous, Administer over 60 Minutes, Once, On Fri02/24/23 at 2245, For 1 dose New 02/24/2023 10:14 PM CDT 2 g magnesium sulfate 2 g/50 mL in water (premix) 2 g 2 g, intravenous, Administer over 60 Minutes, Once, On Fri03/02/23 at 0930, For 1 dose New 03/02/2023 9:33 AM CDT 2 g magnesium sulfate 2 g/50 mL in water (premix) 2 g 2 g, intravenous, Administer over 60 Minutes, Once, On Fri03/04/23 at 1430, For 1 dose, Indications: hypomagnesemiaIndications:hypomag nesemia New Bag 03/04/2023 2:16 PM CDT 2 g magnesium sulfate 2 g/50 mL in water (premix) 2 g 2 g, intravenous, Administer over 60 Minutes, Once, On Fri03/21/23 at 1045, For 1 dose New Bag 03/21/2023 11:50 AM CDT 2 g magnesium sulfate 4 g/100 mL in water (premix) 4 g 4 g, intravenous, Administer over 90 Minutes, Once, On Fri03/18/23 at 0900, For 1 dose New 03/18/2023 9:24 AM CDT 4 g 100 mL/hr meclizine (ANTIVERT) tablet 12.5 mg 12.5 mg, oral, Once, On Fri03/08/23 at 1415, For 1 dose Given 03/08/2023 5:21 PM CDT 12.5 mg meclizine (ANTIVERT) tablet 25 mg 25 mg, oral, Once, On Fri03/08/23 at 0945, For 1 dose Given 03/08/2023 9:41 AM CDT 25 mg meclizine (ANTIVERT) tablet 25 mg 25 mg, oral, 4 times daily PRN, dizziness, Starting on Fri03/09/23 at 0951, On hold since Fri03/12/2023 at 0232 until manually unheld Given 03/11/2023 9:58 PM CDT 25 mg Given 03/09/2023 11:36 AM CDT 25 mg metoprolol (LOPRESSOR) injection 5 mg 5 mg, intravenous, Administer over 1 Minutes, Once, On Fri03/14/23 at 1100, For 1 dose Given 03/14/2023 10:34 AM CDT 5 mg metoprolol tartrate (LOPRESSOR) immediate release tablet 12.5 mg 12.5 mg, oral, Every 6 hours, First dose on Fri02/19/23 at 1600 Given 02/20/2023 10:12 AM CDT 12.5 mg Given 02/20/2023 3:56 AM CDT 12.5 mg Given 02/19/2023 9:19 PM CDT 12.5 mg metoprolol tartrate (LOPRESSOR) immediate release tablet 25 mg 25 mg, oral, Every 6 hours, First dose (after last modification) on Fri02/20/23 at 1600 Given 02/24/2023 10:24 AM CDT 25 mg Given 02/24/2023 5:10 AM CDT 25 mg Given 02/23/2023 9:06 PM CDT 25 mg metoprolol tartrate (LOPRESSOR) immediate release tablet 25 mg 25 mg, oral, 2 times daily, First dose (after last modification) on Fri03/01/23 at 0930, On hold since 03/02/2023 at 1136 until manually unheld Given 03/02/2023 7:55 AM CDT 25 mg Given 03/01/2023 8:10 PM CDT 25 mg Given 03/01/2023 9:23 AM CDT 25 mg metoprolol tartrate (LOPRESSOR) immediate release tablet 25 mg 25 mg, oral, Once, On Fri03/04/23 at 0830, For 1 dose Given 03/04/2023 7:52 AM CDT 25 mg metoprolol tartrate (LOPRESSOR) immediate release tablet 25 mg 25 mg, oral, Once, On Fri03/14/23 at 1015, For 1 dose Given 03/14/2023 9:48 AM CDT 25 mg metoprolol tartrate (LOPRESSOR) immediate release tablet 25 mg 25 mg, oral, Once, On Fri03/18/23 at 1115, For 1 dose Given 03/18/2023 11:55 AM CDT 25 mg metoprolol tartrate (LOPRESSOR) immediate release tablet 25 mg 25 mg, oral, Daily PRN, to be given before physical therapy, Starting on Fri03/18/23 at 1459 metoprolol tartrate (LOPRESSOR) immediate release tablet 50 mg 50 mg, oral, 2 times daily, First dose on Fri02/27/23 at 0900 Given 02/28/2023 8:41 PM CDT 50 mg Given 02/28/2023 8:07 AM CDT 50 mg Given 02/27/2023 8:48 AM CDT 50 mg metoprolol tartrate immediate release capsule 12.5 mg 12.5 mg, oral, Once, On Fri02/20/23 at 1115, For 1 dose Given 02/20/2023 11:59 AM CDT 12.5 mg metoprolol XL (TOPROL-XL) extended release tablet 25 mg 25 mg, oral, Daily, First dose on Fri03/05/23 at 0900, Tablets that are scored may be split, but do not crush, chew, dissolve, open or otherwise manipulate tablet/capsule., On hold since Fri03/05/2023 at 1228 until manually unheld Given 03/05/2023 9:03 AM CDT 25 m g metoprolol XL (TOPROL-XL) extended release tablet 25 mg 25 mg, oral, Daily, First dose on Fri03/15/23 at 0945, Tablets that are scored may be split, but do not crush, chew, dissolve, open or otherwise manipulate tablet/capsule. Given 03/21/2023 8:45 AM CDT 25 mg Given 03/20/2023 9:32 AM CDT 25 mg Given 03/19/2023 8:35 AM CDT 25 mg metoprolol XL (TOPROL-XL) extended release tablet 50 mg 50 mg, oral, 2 times daily, First dose on Fri02/24/23 at 2100, For 5 doses, Tablets that are scored may be split, but do not crush, chew, dissolve, open or otherwise manipulate tablet/capsule. Given 02/26/2023 9:02 PM CDT 50 mg Given 02/26/2023 9:09 AM CDT 50 mg Given 02/25/2023 9:44 PM CDT 50 mg midodrine (PROAMATINE) tablet 10 mg 10 mg, oral, 3 times daily before meals, First dose on Fri03/09/23 at 1245, Indications: Symptomatic Orthostatic HypotensionIndications:Symptomatic Orthostatic Hypotension Given 03/11/2023 4:19 PM CDT 10 mg Given 03/10/2023 5:21 PM CDT 10 mg Or al Given 03/10/2023 11:41 AM CDT 10 mg midodrine (PROAMATINE) tablet 5 mg 5 mg, oral, 3 times daily before meals, First dose (after last modification) on Fri03/12/23 at 0745, Indications: Symptomatic Orthostatic HypotensionIndications:Symptomatic Orthostatic Hypotension Given 03/12/2023 8:34 AM CDT 5 mg midodrine (PROAMATINE) tablet 5 mg 5 mg, oral, Daily PRN, before physical therapy to reduce orthostasis, Starting on 03/15/23 at 0911, Give 30-45 min before working with physical therapy to reduce orthostasis, Indications: Symptomatic Orthostatic HypotensionIndications:Symptomatic Orthostatic Hypotension ondansetron (ZOFRAN) injection 4 mg 4 mg, intravenous, Administer over 2 Minutes, Once, On 02/17/23 at 2000, For 1 dose Given 02/17/2023 7:47 PM CDT 4 mg ondansetron (ZOFRAN) injection 4 mg 4 mg, intravenous, Administer over 2 Minutes, Every 8 hours PRN, nausea, vomiting, 1st Line for n/v, Starting on 02/17/23 at 2057 Given 03/02/2023 7:55 AM CDT 4 mg Given 02/26/2023 1:42 PM CDT 4 mg Given 02/23/2023 9:41 PM CDT 4 mg ondansetron (ZOFRAN) injection 4 mg 4 mg, intravenous, Administer over 2 Minutes, Once, On Concha 03/06/23 at 1345, For 1 dose Given 03/06/2023 1:08 PM CDT 4 m g ondansetron (ZOFRAN) injection 4 mg 4 mg, intravenous, Administer over 2 Minutes, Every 6 hours PRN, nausea, vomiting, 1st line for nausea, Starting on 03/09/23 at 1923 Given 03/11/2023 2:12 PM CDT 4 mg Given 03/11/2023 9:07 AM CDT 4 mg Given 03/10/2023 8:13 PM CDT 4 mg ondansetron (ZOFRAN) injection 4 mg 4 mg, intravenous, Administer over 2 Minutes, Every 4 hours PRN, nausea, vomiting, 1st line for nausea, Starting on 03/11/23 at 1430 Given 03/16/2023 6:26 AM CDT 4 mg Given 03/15/2023 5:14 PM CDT 4 mg Given 03/15/2023 8:15 AM CDT 4 mg ondansetron (ZOFRAN) injection 4 mg 4 mg, intravenous, Administer over 2 Minutes, Every 12 hours scheduled, First dose (after last modification) on 03/16/23 at 2100 Given 03/17/2023 8:02 AM CDT 4 mg Given 03/16/2023 7:50 PM CDT 4 mg ondansetron (ZOFRAN) injection 8 mg 8 mg, intravenous, Administer over 2 Minutes, Once, On Fri03/09/23 at 1800, For 1 dose Given 03/09/2023 5:58 PM CDT 8 mg Left Upper Arm ondansetron (ZOFRAN) injection 8 mg 8 mg, intravenous, Administer over 2 Minutes, 2 times daily before meals (lunch, dinner), First dose (after last modification) on Fri03/18/23 at 1130 Given 03/21/2023 11:50 AM CDT 8 mg Given 03/20/2023 5:20 PM CDT 8 mg Given 03/20/2023 11:49 AM CDT 8 mg ondansetron ODT (ZOFRAN-ODT) disintegrating tablet 4 mg 4 mg, oral, 4 times daily PRN, nausea, vomiting, Starting on Fri03/02/23 at 1346 Given 03/07/2023 3:00 AM CDT 4 mg Given 03/05/2023 5:21 AM CDT [address] (PROTONIX) extended release tablet 40 mg 40 mg, oral, Daily, First dose on Fri02/17/23 at 2015, Do not crush, chew, cut, dissolve, open or otherwise manipulate tablet/capsule., Indications: Treatment of Non-Bleeding Gastric DisorderIndications:Treatment of Non-Bleeding Gastric Disorder Given 03/21/2023 8:44 AM CDT 40 mg Given 03/20/2023 9:32 AM CDT 40 mg Given 03/19/2023 8:36 AM CDT 40 mg perflutren protein-a (OPTISON) 3 mL in sodium chloride 0.9% 8 mL syringe 1-8 mL, intravenous, Once in imaging, contrast, Starting on Concha 02/20/23 at 0732, For 1 dose, Intra-Procedure (CV) Contrast Given 02/20/2023 10:24 AM CDT 3 mL potassium chloride 20 mEq/50 mL in sterile water (premix) 20 mEq 20 mEq, intravenous, at 25 mL/hr, Administer over 2 Hours, Once, On Fri02/18/23 at 0815, For 1 dose, Central line only, Indications: hypokalemiaIndications:hypokal emia Rate/Dose Verify 02/18/2023 9:00 AM CDT 25 mL/hr Rate/Dose Verify 02/18/2023 8:00 AM CDT 25 mL/h r New Bag 02/18/2023 7:54 AM CDT 20 mEq 25 mL/hr potassium chloride ER (KLOR-CON) extended release tablet 30 mEq 30 mEq, oral, Every 4 hours, First dose on Fri02/19/23 at 2045, For 2 doses, Total dose = 60 mEq Tablets should not be crushed, chewed, dissolved, or otherwise manipulated. Capsules may be opened and sprinkled on a spoonful of applesauce or pudding, but the contents of the capsule should not be crushed or chewed. Given 02/20/2023 1:45 AM CDT 30 mEq Given 02/19/2023 9:19 PM CDT 30 mEq potassium chloride ER (KLOR-CON) extended release tablet 30 mEq 30 mEq, oral, Every 4 hours, First dose on Fri02/22/23 at 2145, For 2 doses, Total dose = 60 mEq Tablets should not be crushed, chewed, dissolved, or otherwise manipulated. Capsules may be opened and sprinkled on a spoonful of applesauce or pudding, but the contents of the capsule should not be crushed or chewed. Given 02/23/2023 3:00 AM CDT 30 mEq Given 02/22/2023 10:18 PM CDT 30 mEq potassium chloride ER (KLOR-CON) extended release tablet 40 mEq 40 mEq, oral, Once, On Fri03/03/23 at 0730, For 1 dose, Tablets should not be crushed, chewed, dissolved, or otherwise manipulated. Capsules may be opened and sprinkled on a spoonful of applesauce or pudding, but the contents of the capsule should not be crushed or chewed. Given 03/03/2023 8:48 AM CDT 40 mEq potassium chloride ER (KLOR-CON) extended release tablet 40 mEq 40 mEq, oral, Once, On Fri03/18/23 at 0900, For 1 dose, Tablets should not be crushed, chewed, dissolved, or otherwise manipulated. Capsules may be opened and sprinkled on a spoonful of applesauce or pudding, but the contents of the capsule should not be crushed or chewed. Given 03/18/2023 9:12 AM CDT 40 mEq potassium chloride ER (KLOR-CON) extended release tablet 40 mEq 40 mEq, oral, Once, On Concha 03/20/23 at 0745, For 1 dose, Tablets should not be crushed, chewed, dissolved, or otherwise manipulated. Capsules may be opened and sprinkled on a spoonful of applesauce or pudding, but the contents of the capsule should not be crushed or chewed. Given 03/20/2023 9:31 AM CDT 40 mEq potassium chloride ER (KLOR-CON) extended release tablet 40 mEq 40 mEq, oral, Once, On Fri03/21/23 at 1045, For 1 dose, Tablets should not be crushed, chewed, dissolved, or otherwise manipulated. Capsules may be opened and sprinkled on a spoonful of applesauce or pudding, but the contents of the capsule should not be crushed or chewed. Given 03/21/2023 11:50 AM CDT 40 mEq prochlorperazine (COMPAZINE) injection 5 mg 5 mg, intravenous, Administer over 2 Minutes, Every 6 hours PRN, nausea, vomiting, 2nd line for nausea/vomiting, Starting on Fri02/17/23 at 2018 Given 03/02/2023 9:15 AM CDT 5 mg Given 02/18/2023 8:45 AM CDT 5 mg Given 02/17/2023 9:43 PM CDT 5 mg prochlorperazine (COMPAZINE) injection 5 mg 5 mg, intravenous, Administer over 2 Minutes, Every 6 hours PRN, nausea, vomiting, Starting on Fri03/19/23 at 1404 Given 03/19/2023 2:11 PM CDT 5 mg prochlorperazine (COMPAZINE) tablet 5 mg 5 mg, oral, Every 12 hours scheduled, First dose on Fri03/17/23 at 2100 Given 03/18/2023 9:12 AM CDT 5 mg Given 03/17/2023 7:52 PM CDT 5 mg sertraline (ZOLOFT) tablet 50 mg 50 mg, oral, Daily, First dose on Fri02/17/23 at 1800 Given 03/21/2023 8:45 AM CDT 50 mg Given 03/20/2023 9:32 AM CDT 50 mg Given 03/19/2023 8:36 AM CDT 50 mg simethicone (MYLICON) chewable tablet 160 mg 160 mg, oral, Once, On Fri03/18/23 at 1000, For 1 dose Given 03/18/2023 10:44 AM CDT 160 mg sodium chloride 0.9% flush 5-10 mL 5-10 mL, intra-catheter, Every 12 hours scheduled, First dose on Fri02/19/23 at 0900, Flush volume based on line type, size, and protocol. Given 03/21/2023 8:45 AM CDT 10 mL Given 03/20/2023 9:44 PM CDT 10 mL Given 03/20/2023 9:56 AM CDT 10 mL sodium chloride 0.9% flush 5-20 mL 5-20 mL, intra-catheter, As needed, line care, with each use, Starting on Fri02/19/23 at 0630, Flush volume based on line type, size, and protocol. Given 03/10/2023 1:38 PM CDT 10 mL Given 03/04/2023 2:17 PM CDT 10 mL sodium chloride 0.9% infusion 30 mL/hr, intravenous, Continuous, Starting on Fri02/25/23 at 1300 Rate/Dose Change 02/25/2023 1:36 PM CDT 30 mL/hr Rate/Dose Change 02/25/2023 1:15 PM CDT 250 mL/ hr Rate/Dose Verify 02/25/2023 12:58 PM CDT 30 mL/ hr sodium chloride 0.9% IVPB 0-250 mL 0-250 mL, intravenous, Once, On Fri03/16/23 at 0145, For 1 dose, Prime blood tubing and administer amount needed to clear line (usually 50-100 mL) after transfusion complete. New Bag 03/16/2023 2:04 AM CDT 250 mL vancomycin 1,250 mg/262.5 mL in sodium chloride 0.9% (premix) 1,250 mg 1,250 mg (rounded from 1,245 mg = 15 mg/kg ? 83 kg), intravenous, Administer over 60 Minutes, Once, On Fri02/17/23 at 1830, For 1 dose, Indications: Skin/Soft Tissue InfectionIndications:Skin/Soft Tissue Infection New 02/17/2023 7:01 PM CDT 1,250 mg vancomycin 1,250 mg/262.5 mL in sodium chloride 0.9% (premix) 1,250 mg 1,250 mg, intravenous, Administer over 60 Minutes, Every 24 hours, First dose (after last modification) on Fri02/18/23 at 2100, Indications: Skin/Soft Tissue InfectionIndications:Skin/Soft Tissue Infection New 02/20/2023 9:46 PM CDT 1,250 mg 02/19/2023 9:20 PM CDT 1,250 mg 02/18/2023 8:38 PM CDT 1,250 mg vancomycin 1,250 mg/262.5 mL in sodium chloride 0.9% (premix) 1,250 mg 1,250 mg, intravenous, Administer over 60 Minutes, Every 24 hours, First dose (after last modification) on Fri03/03/23 at 2315, For 13 doses, Indications: Skin/Soft Tissue InfectionIndications:Skin/Soft Tissue Infection 03/04/2023 12:24 AM CDT 1,250 mg vancomycin 1500 mg/515 mL in sodium chloride 0.9% (premix) 1,500 mg 1,500 mg, intravenous, Administer over 90 Minutes, Every 24 hours, First dose (after last modification) on Fri02/21/23 at 2100, For 24 doses, Indications: Skin/Soft Tissue InfectionIndications:Skin/Soft Tissue Infection 03/02/2023 9:01 PM CDT 1,500 mg 03/01/2023 8:11 PM CDT 1,500 mg 02/28/2023 8:41 PM CDT 1,500 mg documented in this encounter Discontinued Medications Medication Sig Discontinue Reason Start Date End Da te aspirin 81 mg tablet daily. Stop Taking at Discharge 09/21/2012 03/21/2023 docusate sodium (COLACE) 100 mg capsuleIndications:con stipation TAKE 1 CAPSULE TWICE DAILY NEEDED. Stop Taking at Discharge 09/21/2012 03/21/2023 atorvastatin (LIPITOR) 80 mg tablet TAKE 1 TABLET AT BEDTIME. Stop Taking at Discharge 09/21/2012 03/21/2023 multivitamin no.44-vit D3-K 1,000-800 unit-mcg capsule daily. Stop Taking at Discharge 03/21/2023 acetaminophen (TYLENOL) 325 mg tablet Stop Taking at Discharge 09/21/2012 03/21/2023 LINZESS 145 mcg capsule Take by mouth daily. Stop Taking at Discharge 11/25/2017 03/21/2023 calcium carbonate-vitamin D3 500 mg(1,250mg) -400 unit chewable tablet Take 1 tablet by mouth daily Stop Taking at Discharge 03/21/2023 omeprazole (PriLOSEC) 20 mg capsule Take 1 capsule (20 mg total) by mouth daily Stop Taking at Discharge 03/21/2023 gabapentin (NEURONTIN) 100 mg capsule Take by mouth 4 (four) times a day Stop Taking at Discharge 03/21/2023 lisinopriL (PRINIVIL,ZESTRIL) 10 mg tablet Take 1 tablet (10 mg total) by mouth daily Stop Taking at Discharge 04/08/2022 03/21/2023 apixaban (Eliquis) 5 mg tablet TAKE 1 TABLET BY MOUTH TWICE DAILY Stop Taking at Discharge 12/23/2022 03/21/2023 furosemide (LASIX) 40 mg tabletIndications:[place] on chronic heart failure with preserved ejection fraction (HFpEF) (CMS/HCC) ([facility]) Take 1 tablet (40 mg total) by mouth 2 (two) times a day Stop Taking at Discharge 01/13/2023 03/21/2023 documented as of this encounter Active and Recently Administered Medications Times are shown in CDT. Scheduled Medication Order 03/19/2023 03/20/2023 03/21/2023 acetaminophen (TYLENOL) tablet 1,000 mg 1,000 mg, oral, 3 times daily, First dose (after last modification) on Fri03/18/23 at 1600 0835 (Given - Provider: Scotty Cain RN)1741 (Given - Provider: Scotty Cain RN)2127 (Given - Provider: Cici Uribe RN) 0931 (Given - Provider: Nataliia Ramos RN)1522 (Given - Provider: Nataliia Ramos RN)2137 (Given - Provider: Cici Uribe RN) 0844 (Given - Provider: Nataliia Ramos RN) amiodarone (PACERONE) tablet 400 mg 400 mg, oral, Daily, First dose (after last modification) on Fri03/15/23 at 0900, Please administer with food 0836 (Given - Provider: Scotty Cain RN) 0931 (Given - Provider: Nataliia Ramos RN) 0845 (Given - Provider: Nataliia Ramos RN) apixaban (ELIQUIS) tablet 5 mg 5 mg, oral, 2 times daily, First dose on Fri02/24/23 at 1200, Nurse to discontinue heparin infusion order and associated bolus at first administration of apixaban using ? order condition met? order source, Indications: atrial fibrillation 0836 (Given - Provider: Scotty Cain RN)2126 (Given - Provider: Cici Uribe RN) 931 (Given - Provider: Nataliia Ramos RN)2136 (Given - Provider: Cici Uribe RN) 0845 (Given - Provider: Nataliia Ramos RN) atorvastatin (LIPITOR) tablet 80 mg 80 mg, oral, Nightly, First dose on Fri02/17/23 at 2100, at bedtime. 2126 (Given - Provider: Cici Uribe RN) 2136 (Given - Provider: Cici Uribe RN) calcium carbonate-vitamin D3 1,250mg (500mg elemental) - 5 mcg (200 units) per tablet 1 tablet 1 tablet, oral, Daily, First dose on Fri02/17/23 at 1800 0835 (Given - Provider: Scotty Cain RN) 0931 (Given - Provider: Nataliia Ramos RN) 0845 (Given - Provider: Nataliia Ramos RN) clopidogreL (PLAVIX) tablet 75 mg 75 mg, oral, Daily, First dose on Fri02/17/23 at 1800 0836 (Given - Provider: Scotty Cain RN) 0932 (Given - Provider: Nataliia Ramos RN) 0845 (Given - Provider: Nataliia Ramos RN) diclofenac sodium (VOLTAREN) 1 % gel 2 g 2 g, topical, 3 times daily, First dose on Fri03/04/23 at 0945, Use dosing card to measure dose, Apply to affected area: leg, back, Laterality: Bilateral 0837 (Not Given - Provider: Scotty Cain RN - Reason: Other - Comment: takes this at night time)1528 (Not Given - Provider: Scotty Cain RN - Reason: Other - Comment: pt wanted this at night time)2126 (Given - Provider: Cici Uribe RN) 1002 (Given - Provider: Nataliia Ramos RN)1523 (Not Given - Provider: Nataliia Ramos RN - Reason: Order parameters not met)215 (Given - Provider: Cici Uribe RN) 0844 (Given - Provider: Nataliia Ramos RN) ezetimibe (ZETIA) tablet 10 mg 10 mg, oral, Daily, First dose on Fri02/17/23 at 1800 0835 (Given - Provider: Scotty Cain RN) 0932 (Given - Provider: Nataliia Ramos RN) 0844 (Given - Provider: Nataliia Ramos RN) gabapentin (NEURONTIN) capsule 200 mg 200 mg, oral, 2 times daily, First dose (after last modification) on Fri03/06/23 at 2100 0835 (Given - Provider: Scotty Cain RN)212 (Given - Provider: Cici Uribe RN) 0931 (Given - Provider: Nataliia Ramos RN)2137 (Given - Provider: Cici Uribe RN) 0844 (Given - Provider: Nataliia Ramos RN) Lactated Ringer's (LR) bolus 500 mL (COMPLETED) 500 mL, intravenous, at 125 mL/hr, Administer over 4 Hours, Once, On Fri03/20/23 at 1015, For 1 dose 0956 (New Bag - Provider: Nataliia Ramos RN) lidocaine (LIDODERM) 5 % patch 1 patch 1 patch, transdermal, Administer over 12 Hours, Daily, First dose on Fri03/03/23 at 1745, Do not cover the holes on the top side of the patch., Apply to affected area: chest 0842 (Medication Applied - Provider: Scotty Cain RN - Comment: right leg)2130 (Medication Removed - Provider: Cici Uribe RN) 0932 (Medication Applied - Provider: Nataliia Ramos RN)214 (Medication Removed - Provider: Cici Uribe RN) 0843 (Medication Applied - Provider: Nataliia Ramos RN)1510 (Due: Medication Removed - Provider: Automatic Discharge Provider - Comment: Time automatically adjusted from order being discontinued) lidocaine (LIDODERM) 5 % patch 2 patch 2 patch, transdermal, Administer over 12 Hours, Daily, First dose on Fri03/04/23 at 0945, Do not cover the holes on the top side of the patch., Apply to affected area: back 0838 (Medication Applied - Provider: Scotty Cain RN - Comment: right leg)2130 (Medication Removed - Provider: Cici Uribe RN) 0930 (Medication Applied - Provider: Nataliia Ramos RN)214 (Medication Removed - Provider: Cici Uribe RN) 0844 (Medication Applied - Provider: Nataliia Ramos RN)1510 (Due: Medication Removed - Provider: Automatic Discharge Provider - Comment: Time automatically adjusted from order being discontinued) linaCLOtide (LINZESS) capsule 145 mcg 145 mcg, oral, Daily before breakfast, First dose on Fri02/18/23 at 0730, Do not crush - May open and disperse in water 30 mL, swirl for at least 20 seconds. Administer immediately. Repeat process if any beads remain behind. Flush. 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 0837 (Not Given - Provider: Scotty Cain RN - Reason: Patient/family refused) 0730 (Not Given - Provider: Cici Uribe RN - Reason: Patient/family refused) 0622 (Not Given - Provider: Cici Uribe RN - Reason: Patient/family refused) magnesium sulfate 2 g/50 mL in water (premix) 2 g (COMPLETED) 2 g, intravenous, Administer over 60 Minutes, Once, On Fri03/21/23 at 1045, For 1 dose 1150 (New Bag - Provider: Nataliia Ramos RN) metoprolol XL (TOPROL-XL) extended release tablet 25 mg 25 mg, oral, Daily, First dose on Fri03/15/23 at 0945, Tablets that are scored may be split, but do not crush, chew, dissolve, open or otherwise manipulate tablet/capsule. 0835 (Given - Provider: Scotty Cain RN) 0932 (Given - Provider: Nataliia Ramos RN) 0845 (Given - Provider: Nataliia Ramos RN) ondansetron (ZOFRAN) injection 8 mg 8 mg, intravenous, Administer over 2 Minutes, 2 times daily before meals (lunch, dinner), First dose (after last modification) on Fri03/18/23 at 1130 1209 (Given - Provider: Scotty Cain RN)1740 (Given - Provider: Scotty Cain RN) 1149 (Given - Provider: Nataliia Ramos RN)1720 (Given - Provider: Nataliia Ramos RN) 1150 (Given - Provider: Nataliia Ramos RN) pantoprazole DR (PROTONIX) extended release tablet 40 mg 40 mg, oral, Daily, First dose on Fri02/17/23 at 2015, Do not crush, chew, cut, dissolve, open or otherwise manipulate tablet/capsule., Indications: Treatment of Non-Bleeding Gastric Disorder 0836 (Given - Provider: Scotty Cain RN) 0932 (Given - Provider: Nataliia Raoms RN) 0844 (Given - Provider: Nataliia Ramos RN) potassium chloride ER (KLOR-CON) extended release tablet 40 mEq (COMPLETED) 40 mEq, oral, Once, On Fri03/20/23 at 0745, For 1 dose, Tablets should not be crushed, chewed, dissolved, or otherwise manipulated. Capsules may be opened and sprinkled on a spoonful of applesauce or pudding, but the contents of the capsule should not be crushed or chewed. 0931 (Given - Provider: Nataliia Ramos RN) potassium chloride ER (KLOR-CON) extended release tablet 40 mEq (COMPLETED) 40 mEq, oral, Once, On Fri03/21/23 at 1045, For 1 dose, Tablets should not be crushed, chewed, dissolved, or otherwise manipulated. Capsules may be opened and sprinkled on a spoonful of applesauce or pudding, but the contents of the capsule should not be crushed or chewed. 1150 (Given - Provider: Nataliia Ramos RN) sertraline (ZOLOFT) tablet 50 mg 50 mg, oral, Daily, First dose on Fri02/17/23 at 1800 0836 (Given - Provider: Scotty Cain RN) 0932 (Given - Provider: Nataliia Ramos RN) 0845 (Given - Provider: Nataliia Ramos RN) sodium chloride 0.9% flush 5-10 mL 5-10 mL, intra-catheter, Every 12 hours scheduled, First dose on Fri02/19/23 at 0900, Flush volume based on line type, size, and protocol. 1039 (Given - Provider: Scotty Cain RN)2127 (Given - Provider: Cici Uribe RN) 0956 (Given - Provider: Nataliia Ramos RN)2144 (Given - Provider: Cici Uribe, PHILIP) 0845 (Given - Provider: Nataliia Ramos RN) PRN Medication Order 03/19/2023 03/20/2023 03/21/2023 camphor-menthoL (SARNA) 0.5-0.5 % lotion topical, Every 6 hours PRN, itching, Starting on Fri02/22/23 at 2105, Apply to affected area: arm, Laterality: Left metoprolol tartrate (LOPRESSOR) immediate release tablet 25 mg 25 mg, oral, Daily PRN, to be given before physical therapy, Starting on 03/18/23 at 1459 midodrine (PROAMATINE) tablet 5 mg 5 mg, oral, Daily PRN, before physical therapy to reduce orthostasis, Starting on 03/15/23 at 0911, Give 30-45 min before working with physical therapy to reduce orthostasis, Indications: Symptomatic Orthostatic Hypotension prochlorperazine (COMPAZINE) injection 5 mg 5 mg, intravenous, Administer over 2 Minutes, Every 6 hours PRN, nausea, vomiting, Starting on Fri03/19/23 at 1404 1411 (Given - Provider: Scotty Cain RN) sodium chloride 0.9% flush 5-20 mL 5-20 mL, intra-catheter, As needed, line care, with each use, Starting on Fri02/19/23 at 0630, Flush volume based on line type, size, and protocol. documented in this encounter Orders Medications Ordered That Juvenal ht Not Have Been Administered Count Last Ordered Date First Ordered Date metoprolol (LOPRESSOR) injection 5 mg 1 08/2022 metoprolol tartrate (LOPRESS OR) immediate release tablet 25 mg 1 03/18/2023 ondansetron (ZOFRAN) injection 8 mg 1 03/17 influenza quadrivalent 2022- 2023 (FLUZONE HIGH DOSE) 240 mcg/0.7 mL vaccine (HIGH DOSE age 65 years and up) 0.7 mL 1 03/16/2023 midodrine (PROAMATINE) tablet 5 mg 1 2022 midodrine (PROAMATINE) tablet 2.5 mg 1 02/15 doxycycline (VIBRAMYCIN) 100 mg in sodium chloride 0.9% 100 mL IVPB 1 03/11/2023 ondansetron (ZOFRAN) injection 4 mg 1 03/09 ondansetron ODT (ZOFRAN-ODT) disintegrating tablet 4 mg 1 03/09/2023 meclizine (ANTIVERT) tablet 25 mg 2 023 03/07/2023 potassium chloride (KLOR-CON ) packet 40 mEq 1 02/23/2023 potassium chloride ER (KLOR- CON) extended release tablet 10 mEq 1 02/23/2023 ketamine (KETALAR) injection 30 mg 1 2022 midazolam (VERSED) 1 mg/mL injection 2 mg 1 02/21/2023 polyethylene glycol (MIRALAX) packet 17 g 1 02/21/2023 sodium chloride 0.9% 0.9% in fusion - ADS Override Pull 1 02/20/2023 lidocaine PF (XYLOCAINE) 10 mg/mL (1 %) preservative free injection 10-20 mg 1 02/19/2023 potassium chloride 20 mEq/26 0 mL in sodium chloride 0.9% (premix) 20 mEq 1 02/18/2023 potassium chloride ER (KLOR- CON) extended release tablet 20 mEq 1 02/18/2023 vancomycin 1,250 mg/262.5 mL in sodium chloride 0.9% (premix) 1,250 mg 1 02/18/2023 vancomycin 1500 mg/515 mL in sodium chloride 0.9% (premix) 1,500 mg 1 02/18/2023 cefepime (MAXIPIME) 2,000 mg /20 mL in sterile water (premix) 2,000 mg 1 02/17/2023 heparin 1,000 unit/mL inject ion 3,000 Units 1 02/17/2023 Lab Orders Without Results Count Last Ordered D ate First Ordered Date IMMUNOFIXATION, URINE 1 03/17/2023 HEPATIC FUNCTION PANEL 2 02/23/202302/20 MAGNESIUM 1 02/23/2023 POCT GLUCOSE DEVICE 3 02/21/2023 02/21/20 TSH REFLEX TO FREE T4 1 02/18/2023 VANCOMYCIN LEVEL RANDOM 1 02/17/2023 EKG Orders Without Results Count Last Ordered D ate First Ordered Date ECG 12-LEAD 1 02/18/2023 General Supply Count Last Ordered Date First Or dered Date COMMODE 300 LB 1 02/27/2023 Nursing Count Last Ordered Date First Orde red Date NURSING COMMUNICATION 1 03/16/2023 VITAL SIGNS 2 03/09/2023 03/05/2023 TELEMETRY MONITORING 1 02/25/2023 RICH CATHETER - DISCONTINUE 1 02/24/2023 WEIGH PATIENT 1 02/17/2023 Consult Count Last Ordered Date First Orde red Date IP CONSULT TO GASTROENTEROLOGY 1 03/17/2023 IP CONSULT TO NEUROLOGY 1 03/07/2023 IP CONSULT TO TRAUMA SURGERY 1 02/21/2023 CONSULT TO GENERAL INFECTIOUS DISEASE 1 12/2022 CONSULT TO ORTHO-TRAUMA 1 02/19/2023 IP CONSULT TO VASCULAR ACCESS TEAM 1 2022 CONSULT TO WOUND CARE 1 02/18/2023 IP CONSULT TO ELECTROPHYSIOLOGY 1 Admission Count Last Ordered Date First Orde red Date ADMIT TO INPATIENT 1 02/17/2023 Transfer Count Last Ordered Date First Orde red Date TRANSFER PATIENT TO NEW UNIT 1 02/23/2023 Discharge Count Last Ordered Date First Orde red Date DISCHARGE PATIENT 1 03/21/2023 CORE MEASURES Count Last Ordered Date First Ord ered Date REASON FOR NO VTE PROPHYLAXIS AT ADMISSION 1 02/17/2023 ADT Patient Update Count Last Ordered Date Firs t Ordered Date PROVIDER TREATMENT TEAM 1 02/17/2023 documented in this encounter Additional Health Concerns Infection Onset Date Last Indicated Resolved Time MRSA Comment:IP Review- Patient has documentation of cultures positive for MRSA from outside facility on 02/12. Isolation flag placed for this reason. Please contact IP for any questions or concerns. 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
--- OUTSIDE RECORDS SUMMARY | 2024-06-12 03:57 | XMS_ITS | Encounter Summary ---
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 documented in this encounter Plan of Treatment [...] Lena Mccoy 02/18/2023 02/18/2023 4 3:05 AM BOX SPRING FRAME BUILDER documented as of this encounter Care Teams Keg Filler Relationship Specialty Start Date End Date Cristian Ling MD [address] [place] [address] PCP - General 10/16/16 documented as of this encounter
--- OUTSIDE RECORDS SUMMARY | 2024-06-12 03:58 | XMS_ITS | Encounter Summary ---
Author Organization [facility] Healthcare Address [address] [place] [address] Care Team Providers Care Ski Guide Name Role Phone Cristian Ling MD Primary Care Prov ider Reason for Referral * Diagnostic Imaging (Routine) - Closed Specialty Diagnoses / Procedures Referred By Contac t Referred To Contact Diagnoses Primary osteoarthritis of right hip Right hip pain Procedures FL Fluoro Guided Injection Hip Right Jamari Briseno MD [address] [address] [place] [address] Phone: tel: fax: [address] [phone] Referral ID Status Reason Start Date Expiration Date Visits Re quested Visits Authorized [id number] Closed 08/06/2022 09/05/2023 1 1 UNITY SUPPORT ASSOCIATE Reason for Visit * Diagnostic Imaging (Routine) - Closed Specialty Diagnoses / Procedures Referred By Contac t Referred To Contact Diagnoses Primary osteoarthritis of right hip Right hip pain Procedures FL Fluoro Guided Injection Hip Right Jamari Briseno MD [address] [facility] [address] [place] [address] Phone: tel: fax: [address] [phone] Referral ID Status Reason Start Date Expiration Date Visits Re quested Visits Authorized [id number] Closed 08/06/2022 09/05/2023 1 1 Encounter Details Date Type Department Care Team (Latest Contact Info) Description 08/15/2022 1:52 PM COMMUNITY SUPPORT ASSOCIATE - 08/15/2022 11:59 PM COMMUNITY SUPPORT ASSOCIATE Hospital Encounter [id number] [address] [facility] [address] [place] [address] Jamari Briseno MD [address] [facility] [address] [place] [address] Primary osteoarthritis of right hip; Right hip pain Discharge Disposition: Discharge to home or self care Social History Tobacco Use Types Packs/Day Years Used Date Smoking Tobacco: Never Smokeless Tobacco: Never AUDIT-C Answer Date Recorded [...] on file Legal Sex Female 7:12 AM COMMUNITY SUPPORT ASSOCIATE Gender Identity Female 02/07/2021 4:33 PM CDT Sexual Orientation Straight 02/07/2021 4: 33 PM CDT documented as of this encounter Discharge Instructions * Patient Instructions* Jamari Briseno MD - 08/15/2022 2:00 PM COMMUNITY SUPPORT ASSOCIATE Post Procedure Instructions You received a steroid [...] those with type 1 diabetes. Check fasting (four slide operator prior to first meal of the day) [...] concerns after hours, call our exchange at [phone]. For all other questions regarding the procedure, please call our office at [phone]. Pain Diary Please fill out the pain diary chart below and call or message via iJento the medical provider whorequested the injection, Dr. Briseno, in two weeks. [...] weeks after? 0% 20% 50% 80% 100% UNITY SUPPORT ASSOCIATE documented in this encounter Medications at Time of Discharge alendronate (FOSAMAX) 70 mg tablet TAKE 1 TABLET BY MOUTH ONE TIME PER WEEK 0 11/09/2018 ezetimibe (ZETIA) 10 mg tablet TAKE 1 TABLET BY MOUTH EVERY DAY 90 tablet 3 07/30/2021 acetaminophen (TYLENOL) 325 mg tablet 09/21/2012 03/21/2023 apixaban (ELIQUIS) 5 mg tablet Take 1 tablet (5 mg total) by mouth 2 (two) times a day 60 tablet 2 06/11/2022 09/17/2022 aspirin 81 mg tablet daily. 09/21/2012 03/21/2023 atorvastatin (LIPITOR) 80 mg tablet TAKE 1 TABLET AT BEDTIME. 09/21/2012 03/21/2023 calcium carbonate-vitamin D3 500 mg(1,250mg) -400 unit chewable tablet Take 1 tablet by mouth daily 03/21/2023 cannabidiol, CBD, (medical cannabis) each 1 Dose 3 (three) times a day as needed Tablets 11/25/2023 cholecalciferol (VITAMIN D-3) 1,000 unit tablet Take 1 tablet (1,000 Units total) by mouth daily 11/25/2023 clopidogreL (PLAVIX) 75 mg tablet Take 1 tablet (75 mg total) by mouth daily 90 tablet 3 05/01/2022 08/20/2023 cyanocobalamin (Vitamin B-12) 1,000 mcg tablet Take 2 tablets (2,000 mcg total) by mouth daily 11/25/[address] (VOLTAREN) 75 mg EC tablet Take 1 tablet (75 mg total) by mouth 2 (two) times a day 11/04/2019 11/25/2023 docusate sodium (COLACE) 100 mg capsuleIndication s:constipation TAKE 1 CAPSULE TWICE DAILY NEEDED. 09/21/2012 03/21/2023 furosemide (LASIX) 20 mg tablet Take 1 tablet (20 mg total) by mouth daily as needed (leg swelling) 60 tablet 12/07/2021 12/30/2022 gabapentin (NEURONTIN) 100 mg capsule Take by mouth 4 (four) times a day 03/21/2023 LINZESS 145 mcg capsule Take by mouth daily. 2 11/25/2017 03/21/2023 lisinopriL (PRINIVIL,ZESTRIL ) 10 mg tablet Take 1 tablet (10 mg total) by mouth daily 90 tablet 3 04/08/2022 03/21/2023 metoprolol XL (TOPROL-XL) 25 mg extended release tablet Take 1 tablet (25 mg total) by mouth daily 30 tablet 3 06/11/2022 10/14/2022 multivitamin no.44-vit D3-K 1,000-800 unit-mcg capsule daily. 03/21/20 omeprazole (PriLOSEC) 20 mg capsule Take 1 capsule (20 mg total) by mouth daily 03/21/2023 sertraline (ZOLOFT) 100 mg tablet Take 0.5 tablets (50 mg total) by mouth daily 11/09/2019 02/23/2024 documented as of this encounter Discharge Disposition Disposition Code Departure Means Destination Discharge to home or self care documented in this encounter Progress Notes * Jamari Briseno MD - 08/15/2022 2:00 PM CST Right Fluoroscopically-Guided Hip Joint Injection [facility] Department of Orthopedic Surgery Division of Physical Medicine and Rehabilitation Patient name: Tiera Lobato Date of : 1945 Date of service: 08/15/2022 Tiera Lobato presents to the fluoroscopy suite [...] was advanced to periosteum under fluoroscopic guidance. Approximately 4 cc of serosanguinaous joint fluid was aspirated. Confirmation into the joint capsule was attained with the infusion of 0.4 mL of Optiray contrast which showed capsularflow. Then, a combination of 1 mL of [...] hip joint was obtained by injecting approximately 0.4 mL of Optiray contrast. Therewas no evidence of vascular uptake noted. I personally performed or was present for the entire procedure above. Jamari Briseno MD UNITY SUPPORT ASSOCIATE documented in this encounter Plan of Treatment Not on file documented as of this encounter Procedures Procedure Name Priority Date/Time Associated Diagnosis Comments FLUORO GUIDED INJECTION HIP RIGHT Schedule Routine, Read Routine (OP Routine) 08/15/2022 2:33 PM COMMUNITY SUPPORT ASSOCIATE Primary osteoarthritis of right hip Right hip pain documented in this encounter Results * FL Fluoro Guided Injection Hip Right (08/15/2022 2:33 PM COMMUNITY SUPPORT ASSOCIATE) Narrative [id number] - 08/15/2022 2:33 PM COMMUNITY SUPPORT ASSOCIATE The images from this study are not interpreted by Radiology. ??Please refer to the physician's procedure / OR operative note. Jamari Briseno MD IMG FLUOROSCOPY PROCEDURES Final Result Performing Organization Address City/State/[facility] Co de Phone Number [email or web address] documented in this encounter Visit Diagnoses Diagnosis Primary osteoarthritis of right hip Right hip pain Pain in joint, pelvic region and thigh documented in this encounter Administered Medications Inactive Administered Medications - up to 3 most recent administrations Medication Order MAR Action Action Date Dose Rate Site ioversoL (OPTIRAY 320) injection As needed, Starting on Concha 08/15/22 at 1424, Intra-Op Given 08/15/2022 2:24 PM COMMUNITY SUPPORT ASSOCIATE 0.5 mL lidocaine PF (XYLOCAINE) 10 mg/mL (1 %) preservative free injection As needed, Starting on Concha 08/15/22 at 1422, Intra-Procedure (IR), Indications: Administration of Local AnesthesiaIndications:Administrati on of Local Anesthesia Given 08/15/2022 2:22 PM COMMUNITY SUPPORT ASSOCIATE 2 mL ropivacaine (NAROPIN) 2 mg/mL (0.2 %) preservative free injection As needed, Starting on Concha 08/15/22 at 1422, Intra-Op Given 08/15/2022 2:22 PM COMMUNITY SUPPORT ASSOCIATE 2 mL triamcinolone (KENALOG) 40 mg/mL injection As needed, Starting on Concha 08/15/22 at 1425, Intra-Op Given 08/15/2022 2:25 PM COMMUNITY SUPPORT ASSOCIATE 40 mg documented in this encounter Care Teams Ski Guide Relationship Specialty Start Date End Date Cristian Ling MD [address] [place] [address] PCP - General 10/16/16 documented as of this encounter
--- OUTSIDE RECORDS SUMMARY | 2024-06-12 03:58 | XMS_ITS | Encounter Summary ---
Author Organization [facility] Healthcare Address [address] [place] [address] Care Team Providers Care Dealer Analyst Name Role Phone Cristian Ling MD Primary Care Prov ider Reason for Visit * Auth/Cert (Routine) Specialty Diagnoses / Procedures Referred By Contdeepali t Referred To Contact Diagnoses Atrial fibrillation, unspecified type (HCC) Atrial fibrillation, unspecified type (HCC) [I48.91] Procedures NE CARDIOVERSION ELECTIVE ARRHYTHMIA EXTERNAL CARDIOVERSION [id number] Referral ID Status Reason Start Date Expiration Date Visits Re quested Visits Authorized [id number] 1 1 Encounter Details Date Type Department Care Team (Late st Contact Info) Description 01/20/2023 9:20 AM CDT - 01/20/2023 10:10 AM CDT Surgery [facility] [address] [place] [address] Kel Arteaga MD PhD [id number] [address] CARDIOVERSION [id number] Surgery Details Date/Time Status Location OR Service Patient Class Case Class Case Type Trauma Case? 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 ADVISORY Gender Identity Female 02/07/2021 4:33 PM CDT Sexual Orientation Straight 02/07/2021 4: 33 PM CDT documented as of this encounter Last Filed Vital Signs Vital Sign Reading Time Taken Comments Blood Pressure 107/53 01/20/2023 9:35 AM CDT Pulse 55 01/20/2023 9:35 AM CDT Temperature 36.6 ??C (97.9 ??F) 01/20/2023 7:45 AM CD T Respiratory Rate 23 01/20/2023 9:35 AM CDT Oxygen Saturation 91% 01/20/2023 9:35 AM CDT Inhaled Oxygen Concentration - - Weight 83 kg (182 lb 15.7 oz) 01/20/2023 7:45 AM CDT Height 162.6 cm (5' 4 ) 01/20/2023 7:45 AM CDT Body Mass Index 31.41 01/20/2023 7:45 AM CDT documented in this encounter Discharge Instructions * Discharge Instructions* [place], [place] - 01/20/2023 9:23 AM CDT Discharge Instructions For Cardioversion Do not drive for 24 hours Do not make any legal decisions for 24 hours Do not operate potentially dangerous machinery for 24 hours Do not drink alcohol for 24hours Rest at home with activity as tolerated Take medications that are prescribed by your physician as directed For routine questions or concerns regarding your care after your Cardioversion please feel free to call us. From 7am-5pm M-F call our Outpatient Nurse Coordinators at [phone]. If you need to speak to someone after 5pm please call [facility] at [phone] and ask the bliss press operator to page the Cardiac Finisher Brush Fellow inventory control/shipping receiving. documented in this encounter Medications at Time [...] by mouth daily 30 tablet 11 01/22/2023 acetaminophen (TYLENOL) 325 mg tablet 09/21/2012 3 apixaban (Eliquis) 5 mg tablet TAKE 1 TABLET BY MOUTH TWICE DAILY 60 tablet 3 12/23/2022 3 aspirin 81 mg tablet daily. 09/21/2012 3 atorvastatin (LIPITOR) 80 mg tablet TAKE 1 TABLET AT BEDTIME. 09/21/2012 3 calcium carbonate-vitamin D3 500 mg(1,250mg) -400 unit chewable tablet Take 1 tablet by mouth daily 3 cannabidiol, CBD, (medical cannabis) each 1 Dose 3 (three) times a day as needed Tablets 4 cholecalciferol (VITAMIN D-3) 1,000 unit tablet Take 1 tablet (1,000 Units total) by mouth daily 4 clopidogreL (PLAVIX) 75 mg tablet Take 1 tablet (75 mg total) by mouth daily 90 tablet 3 05/01/2022 4 cyanocobalamin (Vitamin B-12) 1,000 mcg tablet Take 2 tablets (2,000 mcg total) by mouth daily [address] (VOLTAREN) 75 mg EC tablet Take 1 tablet (75 mg total) by mouth 2 (two) times a day 11/04/2019 4 docusate sodium (COLACE) 100 mg capsuleIndications :constipation TAKE 1 CAPSULE TWICE DAILY NEEDED. 09/21/2012 3 furosemide (LASIX) 40 mg tabletIndications: Acute on chronic heart failure with preserved ejection fraction (HFpEF) (CMS/HCC) (HCC) Take 1 tablet (40 mg total) by mouth 2 (two) times a day 60 tablet 11 01/13/2023 3 gabapentin (NEURONTIN) 100 mg capsule Take by mouth 4 (four) times a day 3 LINZESS 145 mcg capsule Take by mouth daily. 2 11/25/2017 3 lisinopriL (PRINIVIL,ZESTRIL) 10 mg tablet Take 1 tablet (10 mg total) by mouth daily 90 tablet 3 04/08/2022 3 metoprolol XL (TOPROL-XL) 50 mg extended release tabletIndications: Paroxysmal atrial fibrillation with RVR ([facility]) Take 1 tablet (50 mg total) by mouth daily 30 tablet 11 01/13/2023 3 multivitamin no.44-vit D3-K 1,000-800 unit-mcg capsule daily. 3 omeprazole (PriLOSEC) 20 mg capsule Take 1 capsule (20 mg total) by mouth daily 3 sertraline (ZOLOFT) 100 mg tablet Take 0.5 tablets (50 mg total) by mouth daily 11/09/2019 4 documented as of this encounter Discharge Disposition Disposition Code Departure Means Destination Comment s Discharge to home or self care documented in this encounter Progress Notes * Myla Monterroso RN - 01/17/2023 9:55 AM CDT Spoke to patient regarding planned cardioversion on 01/20/23 with an arrival time of 0700. Patient aware NPO after midnight the night before, to take heart and BP meds with small sip of water prior to arrival. Patient aware they will need a responsible adult to drive them home due to sedation. Patient states has taken Eliquis with no missed doses for at least 4 weeks. Directions given to [employer] parking, [employer] parking garage, and to [facility]. documented in this encounter H&P Notes * Kel Arteaga MD PhD - 01/20/2023 7:36 AM CDT I have reviewed the H&P, examined the patient, and endorse the findings as written. Plan of Care : Based on the above findings, I consider Tiera Lobato to be an acceptable riskfor : Procedure(s): CARDIOVERSION [id number] Source Note - Sami Stafford MD - 01/13/2023 10:30 AM CDT Images from the original note were not included. Department of Medicine Sami Stafford MD, MPHS, [facility] Cardiovascular Division stave grader Patient Name: Tiera Lobato : 1945 Date of Service: 01/13/2023 DIAGNOSES: Coronary artery disease with myocardial infarction [...] in the distant past. Osteoporosis Anemia Dear Cristian Ling MD: I had the pleasure of seeing Tiera Lobato today for follow-up. She is a 77 y.o. woman with ahistory of coronary disease and myocardial infarction, status post bypass surgery in 2012, apical variant HCM, paroxysmal afib, and hypertension. She was here with her granddaughter Ross. I last saw her 11/27/22. She comes today to discuss fluid retention/weight gain. She called the office reporting weight gainof about 10 lbs over the course of a week. She had not been taking furosemide so she was instructedto take it daily. She did not notice much benefit. Last 01/10/23, she was instructed to increase to 20 mg twice daily. She does not note much UOP with the 20 mg dosing, but she thinks her weight has gone done about 1 lb. She thinks a good weight for her is 175 lbs though recently had been about 180 lbs, had increased up to 195 lbs. She has also noticed leg swelling, 2 pillow orthopnea up from 1 pillow, no PND or abdominal swelling/distention. Appetite is reduced. Some shortness of breath walking on level ground. Nopalpitations or chest discomfort. She continues on apixaban 5 mg twice daily, has not missed any doses in the past month. She has been more tired more recently. Recent bps have been widely variable, 104/68 up to 170/72 mm Hg. Family history: There is no family history of hypertrophic cardiomyopathy, cardiomyopathy, or sudden cardiac . Outpatient Encounter Medications as of 01/13/2023 Medication Sig Dispense Refill acetaminophen (TYLENOL) 325 mg tablet alendronate (FOSAMAX) 70 mg tablet TAKE 1 TABLET BY MOUTH ONE TIME PER WEEK 0 apixaban (Eliquis) 5 mg tablet TAKE 1 TABLET BY MOUTH TWICE DAILY 60 tablet 3 atorvastatin (LIPITOR) 80 mg tablet TAKE 1 TABLET AT BEDTIME. calcium carbonate-vitamin D3 500 mg(1,250mg) -400 unit chewable tablet Take 1 tablet by mouth daily cholecalciferol (VITAMIN D-3) 1,000 unit tablet Take [...] by mouth 2 (two) times a day ezetimibe (ZETIA) 10 mg tablet TAKE 1 TABLET BY MOUTH EVERY DAY 90 tablet 3 furosemide (LASIX) 20 mg tablet Take 1 tablet (20 mg total) by mouth daily as needed (leg swelling)60 tablet 0 gabapentin (NEURONTIN) 100 mg capsule Take by mouth 4 (four) times a day LINZESS 145 mcg capsule Take by mouth daily. 2 lisinopriL (PRINIVIL,ZESTRIL) 10 mg tablet Take 1 tablet (10 mg total) by mouth daily 90 tablet 3 metoprolol XL (TOPROL-XL) 25 mg extended release tablet Take 1 tablet (25 mg total) by mouth daily 90 tablet 3 multivitamin no.44-vit D3-K 1,000-800 unit-mcg capsule daily. omeprazole (PriLOSEC) 20 mg capsule Take 1 capsule (20 mg total) by mouth daily sertraline (ZOLOFT) 100 mg tablet Take 0.5 tablets (50 mg total) by mouth daily aspirin 81 mg tablet daily. (Patient not taking: Reported on 01/13/2023) cannabidiol, CBD, (medical cannabis) each 1 Dose 3 (three) times a day as needed Tablets (Patient not taking: Reported on 10/18/2022) docusate sodium (COLACE) 100 mg capsule TAKE 1 CAPSULE TWICE DAILY NEEDED. (Patient not taking: Reported on 05/01/2022) No facility-administered encounter medications on file as of 01/13/2023. Allergies Allergen Reactions Codeine Hives and Shortness of breath Latex Itching Tramadol Nausea & Vomiting and Unknown Physical Exam: BP 123/84 Pulse 113 Temp 36.4 ??C (97.5 ??F) Ht 162.6 cm (5' 4 ) Wt 85.7 kg (189 lb) [id number]% BMI 32.44 kg/m?? BP Readings from Last 3 Encounters: 01/13/23 123/84 12/10/22 151/71 11/27/22 (!) 179/75 Wt Readings from Last 3 Encounters: 01/13/23 85.7 kg (189 lb) 11/27/22 78.7 kg (173 lb 9.6 oz) 10/18/22 84.6 kg (186 lb 8 oz) General: older white woman, appears her stated age, no acute distress HEENT: Extraocular muscles intact, conjunctivae clear, anicteric sclera, + dentures Neck: Supple. No goiter. Jugular venous pressure is elevated to the mid neck when sitting upright. Respiratory: Clear to auscultation bilaterally; no wheezing/rales/rhonchi; respirations unlabored Cardiovascular: Tachycardic, irregularly irregular rhythm, normal S1 and S2. No S3 or S4. No murmurs. Carotid upstrokes brisk bilaterally and without bruits. Abdomen: soft, non-tender, no palpable masses, no hepatosplenomegaly Extremities: no cyanosis or clubbing. 1+ tender LE edema. Musculoskeletal: no obvious joint deformities Skin: no obvious rash or bruising Psychiatric: normal affect and mood Neurologic: awake/alert, uses a cane Results: I have personally reviewed the following: Lab Results Component Value Date SODIUM 140 01/09/2023 POTASSIUM 4.4 01/09/2023 BUNSER 34 (H) 01/09/2023 BUNSER 22 01/07/2023 BUNSER 21 10/18/2022 CREATININE 1.74 (H) 01/09/2023 CREATININE 1.62 (H) 01/07/2023 CREATININE 1.15 (H) 10/18/2022 Lab Results Component Value Date CHOL 174 05/02/2021 CHOL 180 12/23/2018 LDL 87 09/04/2015 LDL 118 09/04/2012 LDLDIRECT 93 05/02/2021 LDLDIRECT 90 12/23/2018 ECG 12/29/2019 sinus bradycardia, HR 51, anterolateral TWI in I, aVL, V3-6, normal axis, normal NE, QRS and QT intervals. 30-day monitor 05/2022 with paroxysmal afib with RVR, NSVT. ECG/01/13/23 atrial fibrillation with RVR, ventricular rate 133 beats per minute. Normal axis. Lateral T-wave inversion in V5 to V6, 1, and AVL. Assessment/Plan: Tiera Lobato is a 77 y.o. female with the following: Acute on chronic heart failure with preserved ejection fraction, in the setting of atrial fibrillation with RVR, confirmed by ECG in clinic today. It is notable that she is not aware of her rapid heart rate. She has also had worsening renal function with rise in creatinine from 1.2 at baseline to 1.7 on most recent labs 01/09/23, most consistent with cardiorenal syndrome. She has had limited UOP to escalation of diuretics to furosemide 20 mg twice daily. ECG today Increase furosemide to 40 mg twice daily. Increase metoprolol xl to 50 mg daily for heart rate control. Continue apixaban twice daily. She has been taking this regularly without missing any doses. Will arrange for a cardioversion to restore normal heart rhythm. Repeat echocardiogram Labs this - BMP, BNP ([facility]) Continue to monitor daily weights and twice daily blood pressures, heart rates. Symptom, vital signs update this . Other issues recently discussed: Apical variant HCM She had a 30-day monitor in 05/2022 with NSVT, CMR 07/2022 with max thickness 1.7 cm. We discussed the pathophysiology in depth. We discussed the heritable nature of this condition and risk of sudden cardiac , the role of ICDs for primary prevention of SCD. Per the HCM-SCD risk calculator, she has 3.2% SCD risk over 5 years. There is a class 2b (may be considered) indication for an ICD. Discussed options, EP referral vs repeat monitor in 1 year, elects for latter. Continue metoprolol xl. Recommended screening of children and siblings for HCM with an echo. CAD with prior MT and CABG in 2012 ([facility], [facility]G-OM). She had a recent admission at [facility] 03/2022 with chest pain/shortness of breath. Troponins were minimally elevated. Nuclear stress test was negative. She is on apixaban and clopidogrel. Low threshold to discontinue clopidogrel if any bleeding. Continue metoprolol, atorvastatin, ezetimibe, lisinopril. Hypertension, bp controlled. Continue current meds. NSVT on monitor 05/2022. Continue metoprolol. Osteoporosis with history of pathologic fracture Return to clinic in May. I appreciate the opportunity to participate in Ms. Lobato's care. Please feel free to contact me at with any questions or concerns. Sincerely, Sami Stafford MD, MPHS, [facility] stave grader Cardiovascular Division [facility] --- Please note: This note was generated in part using voice-recognition software and may contain ppa teacher errors. documented in this encounter Nursing Notes * [place] Mattson RN - 01/20/2023 9:41 AM CDT Patient returns from procedure alert and oriented x 4. PT has been drinking and eating, tolerating well. Once bedrest was completed, pt ambulated in the hallway with a steady gait, used the restroom and returned to the bay to prepare for discharge. IV was removed with tip intact, coban applied. No new medications were prescribed and follow up appointments are scheduled. All belongings returned topatient, AVS reviewed and signed by patient, patient discharged per MD order via wheelchair to [facility] to meet son for ride home. documented in this encounter Miscellaneous Notes * Post-Procedure Note - Kel Arteaga MD PhD - 01/20/2023 9:00 AM CDT CARDIOVERSION [id number] PRE-OP DIAGNOSIS: Atrial fibrillation SUPERVISOR GLUING: Kel Arteaga MD PhD. REFERRING MD: Damian Stafford MD; Cristian Ling MD HISTORY: 76 yo WF with atrial fibrillation. Anticoagulation with apixaban. PROCEDURE: Biphasic, synchronized DC cardioversion. The nature of the procedure, risks and alternatives were discussed with the patient who gave informed consent. The patient was sedated with propofol per the anesthesia team. 200J DC-CV using R2 Pads placed AP position. Resulting rhythm was sinus rhythm. The patient was then monitored until fully alert. COMPLICATIONS: None. IMPRESSION: Successful DC cardioversion to sinus rhythm. The referring physician (Dr. Stafford) was notified. Kel Arteaga MD PhD was present to personally supervise or perform the entire procedure. documented in this encounter Plan of Treatment Scheduled Orders Name Type Priority Associated Diagnoses Orde r Schedule ECG 12 lead ECG Routine Once for 1 Oc currences starting 01/20/2023 until 01/20/2023 documented as of this encounter Procedures Procedure Name Priority Date/Time Associated Diagnosis Comments CARDIOVERSION Routine 01/20/2023 8:39 AM CDT Atrial fibrillation, unspecified type (HCC) POC BLOOD GAS AND CHEMISTRIES, ARTERIAL Routine 01/20/2023 8:15 AM CDT ECG 12-LEAD Routine 01/20/2023 7:41 AM CDT documented in this encounter Results * CARDIOVERSION (01/20/2023 8:39 AM CDT) Anatomical Region Laterality Modality X-Ray Angiograph y Impressions 01/24/2023 11:53 AM CDT ??Successful DC cardioversion to sinus rhythm. The referring physician (Dr. Stafford) was notified. Kel Arteaga MD PhD was present to personally supervise or perform the entire procedure. Narrative 01/24/2023 11:53 AM CDT CARDIOVERSION [id number] PRE-OP DIAGNOSIS: ??Atrial fibrillation SUPERVISOR GLUING: Kel Arteaga MD PhD. REFERRING MD: ??Damian Stafford MD; Cristian Ling MD HISTORY: ??76 yo WF with atrial fibrillation. Anticoagulation with apixaban. PROCEDURE: ??Biphasic, synchronized DC cardioversion. The nature of the procedure, risks and alternatives were discussed with the patient who gave informed consent. The patient was sedated with propofol per the anesthesia team. ??200J DC-CV using R2 Pads placed AP position. ?Resulting rhythm was sinus rhythm. The patient was then monitored until fully alert. COMPLICATIONS: ??None. us Sami Stafford MD CV ELECTROPHYSIOLOGY PROCS Fi nal Result * POC Blood Gas and Chemistries, Arterial - (01/20/2023 8:15 AM CDT) [facility] K POC 3.9 3.3 - 4.9 mmol/L [facility] Comment: Interpretive Data This method is not able to assess for hemolysis, which may falsely increase potassium concentrations. If further testing is needed to evaluate this result, consider in-laboratory plasma potassium. Current Interpretive Data was last revised on 2022. Blood 01/20/2023 8:15 AM CDT 01/20/2023 8:15 AM CDT us Kel Arteaga MD PhD LAB POCT ORDERABLES - D EVICE Final Result [facility] Department [place] [address] * ECG 12 lead (01/20/2023 7:41 AM CDT) [facility] Ventricular Rate EKG/Min 114 BPM [facility] QRS-Interval (MSEC) 94 ms [facility] QT-Interval (MSEC) 350 ms [facility] QTc 482 ms [facility] R [place] 19 degrees [facility] T [place] 178 degrees [facility] Diagnosis Atrial fibrillation with rapid ventricular response ST & T wave abnormality, consider inferolateral ischemia Long QTc When compared with ECG of 11-SEP-2012 18:58, Atrial fibrillation is present Rate has increased by 55 bpm T wave abnormalities now more marked in lateral leads Confirmed by SERVANDO GARCIA M.D ([id number]) on 01/20/2023 5:26:38 PM [facility] 01/20/2023 7:41 AM CDT 01/20/2023 5:26 PM CDT us Niecy Faith NP ECG ORDERABLES Final Result [facility] documented in this encounter Visit Diagnoses Diagnosis Atrial fibrillation (CMS/HCC) (HCC)- Primary Atrial fibrillation Atrial fibrillation, unspecified type (HCC) Atrial fibrillation, unspecified type (HCC) documented in this encounter Admitting Diagnoses Diagnosis Atrial fibrillation (CMS/HCC) (HCC) Atrial fibrillation documented in this encounter Administered Medications Inactive Administered Medications - up to 3 most recent administrations Medication Order MAR Action Action Date Dose Rate Site Carrier Fluids for Secondary Infusion - 0.9% Sodium Chloride 30 mL, intravenous, As needed, For priming tubing and/or flushing, Starting on Fri01/20/23 at 0713, Pre-Procedure (CV), 0-250 ml/hr to flush line after IV infusions when no maintenance IV ordered. Infuse 30mL at the same rate as the secondary infusion. Run as primary IV, not intended for KVO. sodium chloride 0.9% flush 0.5-20 mL 0.5-20 mL, intra-catheter, Every 8 hours scheduled, First dose on Fri01/20/23 at 0745, Pre-Procedure (CV), Flush volume based on line type and size. sodium chloride 0.9% flush 0.5-20 mL 0.5-20 mL, intra-catheter, As needed, line care, Starting on Fri01/20/23 at 0713, Pre-Procedure (CV), Flush volume based on line type and size. Flush before and after each use. sodium chloride 0.9% infusion 50 mL/hr, intravenous, Continuous, Starting on Fri01/20/23 at 0745, Pre-Procedure (CV) Rate/Dose Verify 01/20/2023 8:26 AM CDT 50 mL/hr New Bag 01/20/2023 8:14 AM CDT 50 mL/hr 50 mL/hr documented in this encounter Active and Recently Administered Medications Times are shown in CDT. Scheduled Medication Order 01/18/2023 01/19/2023 01/20/2023 sodium chloride 0.9% flush 0.5-20 mL 0.5-20 mL, intra-catheter, Every 8 hours scheduled, First dose on Fri01/20/23 at 0745, Pre-Procedure (CV), Flush volume based on line type and size. 0745 (Due) Continuous Medication Order 01/18/2023 01/19/2023 01/20/2023 sodium chloride 0.9% infusion 50 mL/hr, intravenous, Continuous, Starting on Fri01/20/23 at 0745, Pre-Procedure (CV) 0814 (New Bag - Prov ider: Ema Howell RN)0826 (Rate/Dose Verify - Provider: Baylee Granados CRNA)0835 (Stopped - Provider: Baylee Granados CRNA) PRN Medication Order 01/18/2023 01/19/2023 01/20/2023 Carrier Fluids for Secondary Infusion - 0.9% Sodium Chloride 30 mL, intravenous, As needed, For priming tubing and/or flushing, Starting on Fri01/20/23 at 0713, Pre-Procedure (CV), 0-250 ml/hr to flush line after IV infusions when no maintenance IV ordered. Infuse 30mL at the same rate as the secondary infusion. Run as primary IV, not intended for KVO. sodium chloride 0.9% flush 0.5-20 mL 0.5-20 mL, intra-catheter, As needed, line care, Starting on Fri01/20/23 at 0713, Pre-Procedure (CV), Flush volume based on line type and size. Flush before and after each use. documented in this encounter Orders Medications Ordered That Juvenal ht Not Have Been Administered Count Last Ordered Date First Ordered Date Carrier Fluids for Secondary Infusion - 0.9% Sodium Chloride 1 01/20/2023 sodium chloride 0.9% flush 0.5-20 mL 2 12/2022 Discharge Count Last Ordered Date First Orde red Date DISCHARGE PATIENT 1 01/20/2023 documented in this encounter Care Teams Dealer Analyst Relationship Specialty Start Date End Date Cristian Ling MD [address] [place] [address] PCP - General 10/16/16 documented as of this encounter
--- OUTSIDE RECORDS SUMMARY | 2024-06-12 03:58 | XMS_ITS | Encounter Summary ---
Author Organization 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 [address] [facility]. [address], [address] If you have any financial questions please call [phone] If you need to cancel or reschedule your appointment please call [phone] Ask them the covid screening questions Have [...] the clinic. If possible, come by themselves. Inform patient to wear a mask and any guest will also need a mask. Procedure Patients Are you on any blood thinners? Yes [x] No []Eloquis Are you currently on any antibiotics? Yes [] No [x] Have you had a fever in the last 7 days? Yes [] No [x] Are you diabetic? Yes [] No [x] In the last 2 weeks have you received the COVID-19 vaccine? Yes [] No [x] In the next 2 weeks do you plan on receiving the COVID-19 vaccine? Yes [] No [x] If the answer is yes to either question 5 or 6 then please connect the patient with Beba Busch, the diabetes education coordinator at [phone]. If a direct number is requested by the patient please give them [phone]. OR HELPER documented in this encounter Plan of Treatment Not on file documented as of this encounter Visit Diagnoses Not on filedocumented in this encounter Care Teams Quality Control Associate Relationship Specialty Start Date End Date Cristian Ling MD [address] [place] [address] PCP - General 10/16/16 documented as of this encounter
--- OUTSIDE RECORDS SUMMARY | 2024-06-12 03:58 | XMS_ITS | Encounter Summary ---
Author Organization [facility] Address [address] [place] [address] Phone Care Team Providers Care Laboratory Animal Caretaker Name Role Phone Cristian Ling MD Primary Care Prov ider Reason for Visit * Reason Onset Date Comments Post DCCV F/u 02/03/2023 Encounter Details Date Type Department Care Team (Late st Contact Info) Description 02/03/[address] 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 * Telephone Encounter - Sheila Solomon RN - 02/03/2023 10:11 AM CDT Pt was cardioverted 01/20/23. Follow up with symptoms. documented in this encounter Plan of Treatment Not on file documented as of this encounter Visit Diagnoses Not on filedocumented in this encounter Care Teams Laboratory Animal Caretaker Relationship Specialty Start Date End Date Cristian Ling MD [address] [place] [address] PCP - General 10/16/16 documented as of this encounter
--- OUTSIDE RECORDS SUMMARY | 2024-06-12 03:58 | XMS_ITS | Encounter Summary ---
Author Organization [facility] Address [address] [place] [address] Phone Care Team Providers Care Cotton Picker Operator Name Role Phone Cristian Ling MD Primary Care Prov ider Reason for Visit * Reason Onset Date Comments Med Refill 11/14/2022 Encounter Details Date Type Department Care Team (Late st Contact Info) Description 11/14/2022 Telephone [facility] Cardiology [address] 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 documented in this encounter Plan of Treatment Not on file documented as of this encounter Visit Diagnoses Not on filedocumented in this encounter Discontinued Medications Medication Sig Discontinue Reason Start Date End Da te metoprolol XL (TOPROL-XL) 25 mg extended release tablet TAKE 1 TABLET BY MOUTH ONCE DAILY Reorder 10/14/2022 11/14/2022 documented as of this encounter Care Teams Cotton Picker Operator Relationship Specialty Start Date End Date Cristian Ling MD [address] [place] [address] PCP - General 10/16/16 documented as of this encounter
--- OUTSIDE RECORDS SUMMARY | 2024-06-12 03:58 | XMS_ITS | Encounter Summary ---
Author Organization [facility] Address [address] [place] [address] Phone Care Team Providers Care Staff Development Coordinator Rn Name Role Phone Cristian Ling MD Primary Care Prov ider Reason for Visit * Oncology (Routine) - Authorized Specialty Diagnoses / Procedures Referred By Contac t Referred To Contact Oncology Diagnoses Anemia, unspecified type Procedures ONCBCN ARM DRAW APPT ONC LAB ONLY Katja Joe MD [address] [place] [address] Phone: tel: fax: Katja Joe MD Phone: tel: fax: Referral ID Status Reason Start Date Expiration Date Visits Requested Visits Authorized [id number] Authorized Specialty Services Required 09/03/2022 09/29/2024 99 99 Encounter Details Date Type Department Care Team (Late st Contact Info) Description 10/18/2022 11:[address] 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
--- OUTSIDE RECORDS SUMMARY | 2024-06-12 03:58 | XMS_ITS | Encounter Summary ---
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 03/21/20 23 omeprazole (PriLOSEC) 20 mg capsule Take 1 [...] on filedocumented in this encounter Care Teams Gasoline Power Shovel Operator Relationship Specialty Start Date End Date Cristian Ling MD [address] [place] [address] PCP - General 10/16/16 documented as of this encounter
--- OUTSIDE RECORDS SUMMARY | 2024-06-12 03:58 | XMS_ITS | Encounter Summary ---
Author Organization [facility] Healthcare Address [address] [place] [address] Care Team Providers Care Pepper Cutter Name Role Phone Cristian Ling MD Primary Care Prov ider Reason for Visit * Auth/Cert (Routine) Specialty Diagnoses / Procedures Referred By Paula t Referred To Contact Diagnoses Atrial fibrillation, unspecified type (HCC) Atrial fibrillation, unspecified type (HCC) [I48.91] Procedures [place] CARDIOVERSION ELECTIVE ARRHYTHMIA EXTERNAL CARDIOVERSION [id number] Referral ID Status Reason Start Date Expiration Date Visits Re quested Visits Authorized [id number] 1 1 Encounter Details Date Type Department Care Team (Latest Contact Info) Description 01/20/2023 7:08 AM CDT - 01/20/2023 9:50 AM CDT Hospital Encounter [facility] [address] [place] [id number] Rima AlvesDirector Of Brand MarketingMD [address] [place], [place] [id number] Kel Arteaga MD PhD [address] [phone] Atrial fibrillation (CMS/HCC) (HCC) [I48.91 (ICD-10-CM)] (Primary Dx); Atrial fibrillation, unspecified type (HCC) Discharge Disposition: Discharge to home or [...] on file 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 If you need to speak to someone after 5pm please call [facility] at [phone] and ask the necktie centralizing machine operator to page the Cardiac Truck Crane Operator Fellow electronic warfare technical. documented in this encounter Medications at Time [...] release tabletIndications: Paroxysmal atrial fibrillation with RVR ([facility]) Take 1 tablet (50 mg [...] at least 4 weeks. Directions given to [employer] parking, [employer] parking garage, and to [facility]. documented in this encounter H&P Notes * Kel Arteaga MD PhD - 01/20/2023 7:36 AM CDT I have reviewed the H&P, examined the patient, and endorse the findings as written. Plan of Care : Based on the above findings, I consider Tiera Lobato to be an acceptable riskfor : Procedure(s): CARDIOVERSION 24864 Source Note - Sami Stafford MD - 01/13/2023 10:30 AM CDT Images from the original note were not included. Department of Medicine Sami Stafford MD, MPHS, [facility] Cardiovascular Division investment banker Patient Name: Tiera Lobato : 1945 Date [...] 4 ) Wt 85.7 kg (189 lb) GsX190% BMI 32.44 kg/m?? BP Readings from Last [...] in I, aVL, V3-6, normal axis, normal MN, QRS and QT intervals. 30-day monitor 05/2022 [...] HCM with an echo. CAD with prior PA and CABG in 2012 ([facility], [facility]-OM). She had a recent admission at [facility] 03/2022 with chest pain/shortness of breath. Troponins [...] or concerns. Sincerely, Sami Stafford MD, MPHS, [facility] investment banker Cardiovascular Division [facility] in [facility] --- Please note: This note was generated in part using voice-recognition software and may contain mill turner errors. documented in this encounter Nursing Notes [...] discharged per MD order via wheelchair to [facility] to meet son for ride home. documented in this encounter Miscellaneous Notes * Post-Procedure Note - Kel Arteaga MD PhD - 01/20/2023 9:00 AM CDT CARDIOVERSION 33904 PRE-OP DIAGNOSIS: Atrial fibrillation BILLET DRILLER: Kel Arteaga MD PhD. REFERRING MD: Damian [...] procedure. Narrative 01/24/2023 11:53 AM CDT CARDIOVERSION [id number] PRE-OP DIAGNOSIS: ??Atrial fibrillation BILLET DRILLER: Kel Arteaga MD PhD. REFERRING MD: ??Damian [...] Chemistries, Arterial - (01/20/2023 8:15 AM CDT) [facility] K POC 3.9 3.3 - 4.9 mmol/L [facility] Comment: Interpretive Data This method is not able to assess for hemolysis, which may falsely increase potassium concentrations. If further testing is needed to evaluate this result, consider in-laboratory plasma potassium. Current Interpretive Data was last revised on 2022. Blood 01/20/2023 8:15 AM CDT 01/20/2023 8:15 AM CDT us Kel Arteaga MD PhD LAB POCT ORDERABLES - D EVICE Final Result [facility] [place] [address] * ECG 12 lead (01/20/2023 7:41 AM CDT) [facility] Ventricular Rate EKG/Min 114 BPM [facility] QRS-Interval (MSEC) 94 ms [facility] QT-Interval (MSEC) 350 ms [facility] QTc 482 ms [facility] R [place] 19 degrees [facility] T [place] 178 degrees [facility] Diagnosis Atrial fibrillation with rapid ventricular response ST & T wave abnormality, consider inferolateral ischemia Long QTc When compared with ECG of 11-SEP-2012 18:58, Atrial fibrillation is present Rate has increased by 55 bpm T wave abnormalities now more marked in lateral leads Confirmed by SERVANDO GARCIA M.D ([id number]) on 01/20/2023 5:26:38 PM [facility] 01/20/2023 7:41 AM CDT 01/20/2023 5:26 PM CDT us Niecy Faith NP ECG ORDERABLES Final Result [facility] [employer] [facility] documented in this encounter Visit Diagnoses [...] 01/20/2023 documented in this encounter Care Teams Pepper Cutter Relationship Specialty Start Date End Date Cristian Ling MD [address] [place] [address] PCP - General 10/16/16 documented as of this encounter
--- OUTSIDE RECORDS SUMMARY | 2024-06-12 03:58 | XMS_ITS | Encounter Summary ---
Author Organization [facility] Address [address] [place] [address] Phone Care Team Providers Care Disability Benefits Specialist Name Role Phone Cristian Ling MD Primary Care Prov ider Encounter Details Date Type Department Care Team (Late st Contact Info) Description 11/18/[address] 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 Gender Identity Female 02/07/2021 4:33 PM CDT Sexual Orientation Straight 02/07/2021 4: 33 PM CDT documented as of this encounter Miscellaneous Notes * Telephone Encounter - Vilma Faith - 11/20/2022 2:37 PM CDT Patient is calling again regarding her message she left on 11/18/22 wanting to get another right hip injection patient phone is [phone] * Telephone Encounter - Vilma Faith - 11/18/2022 4:32 PM CDT Patient is asking for a right hip injection again she is available at [phone] documented in this encounter Plan of Treatment Not on file documented as of this encounter Visit Diagnoses Not on filedocumented in this encounter Care Teams Disability Benefits Specialist Relationship Specialty Start Date End Date Cristian Ling MD [address] [place] [address] PCP - General 10/16/16 documented as of this encounter
--- OUTSIDE RECORDS SUMMARY | 2024-06-12 03:58 | XMS_ITS | Encounter Summary ---
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 She had been hoping to feel better after the procedure. She checked her blood pressure and heart rate at home and found that both are within normal limits. I encouraged her to give the procedure additional time, but explained that if her shortnessof breath still does not improve over the next several days she should follow up with her PCP to discuss other causes of her shortness of breath. documented in this encounter Plan of Treatment Not on file documented as of this encounter Visit Diagnoses Not on filedocumented in this encounter Care Teams Parquet Floor Layer'S Helper Relationship Specialty Start Date End Date Cristian Ling MD [address] [place] [address] PCP - General 10/16/16 documented as of this encounter
--- OUTSIDE RECORDS SUMMARY | 2024-06-12 03:58 | XMS_ITS | Encounter Summary ---
Author Organization [facility] Address [address] [place] [address] Phone Care Team Providers Care Toggle Press Folder And Feeder Name Role Phone Cristian Ling MD Primary Care Prov ider Belinda Quigley INSPECTOR MECHANICAL Unavailable [phone] Encounter Details Date Type Department Care Team (Late st Contact Info) Description 01/10/2023 Telephone [facility] Cardiology [address] [facility] Advanced Medicine 8th [place] [address] [place] [address] Sami Stafford MD [address] [id number] Social History Tobacco Use Types Packs/Day Years [...] on file Legal 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 difficile suspected 11/24/2023 11/25/202311/24 10:38 AM CDT COVID: Suspected 12/07/2023 12/07/2023 12/07/2023 5:54 PM CDT documented as of this encounter Care Teams Toggle Press Folder And Feeder Relationship Specialty Start Date End Date Cristian Ling MD [address] [place] [address] PCP - General 10/16/16 Belinda Quigley, SERG [address] [facility] ([facility]) Mailstop [phone] [place] [address] SHOP Outpatient Sunglass Clip Attacher 12/04/23 12/30/23 documented as of this encounter
--- OUTSIDE RECORDS SUMMARY | 2024-06-12 03:58 | XMS_ITS | Encounter Summary ---
Author Organization [facility] Address [address] [place] [address] Phone Care Team Providers Care Health And Safety Consultant Name Role Phone Cristian Ling MD Primary Care Prov ider Encounter Details Date Type Department Care Team (Late st Contact Info) Description 02/03/[address] 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 Reports she is admitted at [facility] for a broken wrist. She also reports she went back into atrial fibrillation. She said the outside hospital is doing 2 EKG's a day-- she is being sotalol loaded. She fell on Friday at home. She is unsure if she lost consciousness, passed out. She said she wasoutside, got up to get something to drink, stood up, felt dizzy, sat back down, waited 5 minutes, and got up and shortly after fell. Said OSH thinks she was dehydrated, BP was low. She is feeling better now. Thinks she will be discharged tomorrow or ; needs arrangement to be discharged to new assisted living facility. I told her to call me when she is discharged so we can do med rec, etc. I told her I would let Dr. Stafford know that she is admitted, etc and if he thinks she should see an QC ANALYST sooner than 06/11/23 f/u vs EP? And let her know. * Telephone Encounter - Sonia Gutierrez - 02/03/2023 11:20 AM CDT Rivera Patient currently in [facility] in [place] for a broken wrist. Stated she is still having heart issues and would like a return call. She can be reached at [phone] or her son Storm is available at [phone]. documented in this encounter Plan of Treatment Not on file documented as of this encounter Visit Diagnoses Not on filedocumented in this encounter Care Teams Health And Safety Consultant Relationship Specialty Start Date End Date Cristian Ling MD [address] [place] [address] PCP - General 10/16/16 documented as of this encounter
--- OUTSIDE RECORDS SUMMARY | 2024-06-12 03:58 | XMS_ITS | Encounter Summary ---
Author Organization [facility] Address [address] [place] [address] Phone Care Team Providers Care Reading Instructor Name Role Phone Cristian Ling MD Primary Care Prov ider Reason for Visit * Reason Onset Date Comments ROV 01/13/23 follow-up/DCCV Scheduling 01/13/2023 Encounter Details Date Type Department Care Team (Late st Contact Info) Description 01/13/2023 Telephone [facility] Cardiology [address] Medicine 8th [place] [address] [place] [address] Sami Stafford MD [address] 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 JS aware. * Telephone Encounter - Sheila Pacheco RN - 01/17/2023 9:15 AM CDT Spoke with pt to get an update after appt on Friday on symptoms, weight, BP/HR. Reports her swelling has improved. weight is 183lbs (189lbs on Friday). Confirms she has increased furosemide to 40mg BID, metoprolol xl to 50mg. She did get her labs done yesterday, still pending. BP/HR's: 8 AM 130/84 100 186lbs PM 118/64 88 8 AM 122/68 76 185lbs PM 140/82 85 01/16 AM 112/80 66 183lbs PM 124/84 88 She said she still feels SOB with minimal exertion, not feeling herself. I told her that could be r/t a-fib and anticipate after cardioversion Friday she will be feeling better. I educated her to continue to monitor HR/BP weights post procedure since we increased metop, may need to resume prior dosing, but to call if she is concerned about low HR, fatigue, etc. She asked that I call her son Storm to provide directions to [facility]. Spoke with Storm to relay instructions. Plan is to follow up with Jaz 1-2 weeks after cardioversion for symptom update and plan for repeat echo when euvolemic. Encouraged she call sooner if any concerns. * Telephone Encounter - Sheila Pacheco RN - 01/17/2023 7:46 AM CDT From [facility] 01/16: Pt calling to speak with a nurse in regards to her upcoming procedure on Friday. * Telephone Encounter - Sheila Pacheco RN - 01/14/2023 3:[address] Stafford: 1.5-2 L/day = 6-8 cups. Spoke with pt to relay recs. * Addendum Note - Sheila Pacheco RN - 01/14/2023 3:04 PM CDTAddended by: SHEILA PACHECO on: 01/14/2023 03:04 PM Modules accepted: Orders * Telephone Encounter - Sheila Pacheco RN - 01/14/2023 2:57 PM CDT Spoke with pt who is amenable to cardioversion on 01/20/23 with a 7 AM arrival. Educated pt on location of [facility], need for transportation to and from procedure, NPO at midnight. Sheconfirms she has not missed any doses of eliquis in the last 30 days. Educated her on importance ofadherence and if a dose is missed, to let us know, as procedure will need to be rescheduled. Pt verbalized understanding to above info. Order placed for cardioversion. Will send to cath for scheduling. Told pt we will plan to obtain echo after cardioversion and when pt is euvolemic-- will touch base with pt 1-2 weeks after cardioversion for symptom update. Will have scheduling cancel 01/20/23 echo. Pt asked how much fluid Dr. Stafford told her to drink in a day at appt yesterday- will ask JS for hisrecs. * Telephone Encounter - Sheila Pacheco RN - 01/13/2023 3:40 PM CDT Spoke with pt and she wrote down both dates- she is going to call me back ABBEY after she speaks to her family for the date that works best. Also, pending DCCV, will reschedule echo until after pt in [place]. * Telephone Encounter - Sheila Pacheco RN - 01/13/2023 1:19 PM CDT Per [facility] RN: First available cardioversion is 01/16/23 arrival 6 am Then 01/20/23 arrival 7 am * Telephone Encounter - Sheila Pacheco RN - 01/13/2023 12:08 PM CDT ROV 01/13/23: Pt was in a-fib RVR. Plan per JS below: Increase furosemide to 40 mg twice daily. Increase metoprolol xl to 50 mg daily. Will arrange for a cardioversion to restore normal heart rhythm. Repeat echocardiogram (01/20/23) Labs this - BMP, BNP ([facility]) Continue to monitor daily weights and twice daily blood pressures, heart rates. Symptom, vital signs update this . Limit sodium and fluid intake. documented in this encounter Plan of Treatment Not on file documented as of this encounter Visit Diagnoses Diagnosis Atrial fibrillation, unspecified type (HCC)- Primary documented in this encounter Orders Case Request Count Last Ordered Date First Orde red Date CASE REQUEST HYDRAULIC JACK MECHANIC 1 01/14/2023 documented in this encounter Care Teams Reading Instructor Relationship Specialty Start Date End Date Cristian Ling MD [address] [place] [address] PCP - General 10/16/16 documented as of this encounter
--- OUTSIDE RECORDS SUMMARY | 2024-06-12 03:58 | XMS_ITS | Encounter Summary ---
Author Organization [facility] Address [address] [place] [address] Phone Care Team Providers Care Composite Assembler Name Role Phone Cristian Ling MD Primary Care Prov ider Reason for Referral * Diagnostic Imaging (Routine) - Closed Specialty Diagnoses / Procedures Referred By Contac t Referred To Contact Diagnoses Primary osteoarthritis of right hip Procedures FL Fluoro Guided Injection Hip Right Jamari Rodríguez MD [address] [place] [address] Phone: tel: fax: [facility] Referral ID Status Reason Start Date Expiration Date Visits Re quested Visits Authorized [id number] Closed 11/25/2022 12/25/2023 1 1 Encounter Details Date Type Department Care Team (Late st Contact Info) Description 11/25/2022 Orders Only [facility] Orthopaedic Surgery [address] [address] [place] [phone] Jamari Rodríguez MD [address] [facility] [address] [place] [address] Primary osteoarthritis of right hip (Primary Dx) Social History Tobacco Use Types [...] on file 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 (Patients on supplemental oxygen or with current tracheostomy cannot be scheduled at [facility]) No Diabetic: No Not Applicable Confirm patient's insurance: Yes What is patient's BMI (Maximum BMI at [facility] is 45) 32.9 Provided Pre-Procedure Instructions including arrival time: Yes My Chart Patient encouraged to call with issues/concerns. documented in this encounter Plan of Treatment Not on file documented as of this encounter Results * FL Fluoro Guided Injection Hip Right (12/10/2022 1:59 PM CDT) Narrative [facility] - 12/10/2022 2:00 PM CDT The images from this study are not interpreted by Radiology. ??Please refer to the physician's procedure / OR operative note. Jamari Rodríguez MD IMG FLUOROSCOPY PROCEDURES Final Result [facility] documented in this encounter Visit Diagnoses Diagnosis Primary osteoarthritis of right hip- Primary Primary osteoarthritis of right hip documented in this encounter Care Teams Composite Assembler Relationship Specialty Start Date End Date Cristian Ling MD [address] [place] [address] PCP - General 10/16/16 documented as of this encounter
--- OUTSIDE RECORDS SUMMARY | 2024-06-12 03:58 | XMS_ITS | Encounter Summary ---
Author Organization [facility] Address [address] [place] [address] Phone Care Team Providers Care Digital Photographic Printer Name Role Phone Cristian Ling MD Primary Care Prov ider Reason for Visit * Consultation (Routine) - Closed Specialty Diagnoses / Procedures Referred By Contac t Referred To Contact Cardiology Diagnoses Chronic coronary artery disease Hx of CABG Primary hypertension Sami Stafford MD [address] [facility] [address] [place] [address] Phone: tel: fax: [facility] (All Locations) Referral ID Status Reason Start Date Expiration Date V isits Requested Visits Authorized [id number] Closed Specialty Services Required 11/25/2022 11/27/2023 12 12 Encounter Details Date Type Department Care Team (Late st Contact Info) Description 11/27/2022 11:45 AM CDT Office Visit [facility] Cardiology [address] 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 Gender Identity Female 02/07/2021 4:33 PM CDT Sexual Orientation Straight 02/07/2021 4: 33 PM CDT documented as of this encounter Last Filed Vital Signs Vital Sign Reading Time Taken Comments Blood Pressure 179/75 11/27/2022 11:58 AM CDT Pulse 63 11/27/2022 11:58 AM CDT Temperature - - Respiratory Rate - - Oxygen Saturation 99% 11/27/2022 11:58 AM CDT Inhaled Oxygen Concentration - - Weight 78.7 kg (173 lb 9.6 oz) 11/27/2022 11:58 AM CDT Height - - Body Mass Index 30.75 09/28/2020 1:48 PM CDT documented in this encounter Patient Instructions * Patient Instructions* Sami Stafford MD - 11/27/2022 11:45 AM CDT You have apical variant hypertrophic cardiomyopathy. Your children and any siblings should be screened for the same condition with an echocardiogram. Echo contrast may be needed to better visualize the heart muscle. Monitor your blood pressure 2 times daily (morning before medications, evening before dinner) for 1week, then send/call with the readings. You may stop aspirin since you are on apixaban (Eliquis). Call if you have more rapid palpitations. We can consider increasing metoprolol. Date: AM PM -- For Storm: Dr. Michael Horowitz is one of our most experienced hematologists here. * Attachments The following attachments cannot be sent through Care Everywhere. * Implantable Cardioverter Defibrillator (Nut Picker) (Lao) documented in this encounter Progress Notes * Sami Stafford MD - 11/27/2022 11:45 AM CDT Images from the original note were not included. Department of Medicine Sami Stafford MD, MPHS, [facility] Cardiovascular Division care clinician Patient Name: Tiera Lobato : 1945 Date of Service: 11/27/2022 DIAGNOSES: Coronary artery disease with myocardial infarction [...] and hypertension. She was here with her son Storm. Last week, was at rest when she noted sudden onset of irregular tachypalpitations. Her heart rate slowed down after about 5 minutes. This was followed by a sensation of indigestion lasting a couple minutes. All of her symptoms resolved within 10 minutes. She had some chest tightness and shortness of breath with her spell. No dizziness or presyncope. No other spells of palpitations. She is tolerating apixaban without bleeding. She is off clopidogrel but continues on aspirin 81 mg daily. She mentions sporadic upper sternal pain, tenderness to palpation. No clear triggers, resolves within a minute. Monthly bps at her assisted living facility are reportedly normal. Family history: There is no family history of hypertrophic cardiomyopathy, cardiomyopathy, or sudden cardiac . Outpatient Encounter Medications as of 11/27/2022 Medication Sig Dispense Refill alendronate (FOSAMAX) 70 mg tablet TAKE 1 TABLET BY MOUTH ONE TIME PER WEEK 0 apixaban (Eliquis) 5 mg tablet Take 1 tablet (5 mg total) by mouth 2 (two) times a day 180 tablet 1 aspirin 81 mg tablet daily. atorvastatin (LIPITOR) 80 mg tablet TAKE 1 [...] tablets (50 mg total) by mouth daily acetaminophen (TYLENOL) 325 mg tablet TAKE 1 TO 2 TABLETS EVERY 6 HOURS NEEDED. (Patient not taking: Reported on 10/18/2022) cannabidiol, CBD, (medical cannabis) each 1 Dose 3 (three) times a day as needed Tablets (Patient not taking: Reported on 10/18/2022) docusate sodium (COLACE) 100 mg capsule TAKE 1 CAPSULE TWICE DAILY NEEDED. (Patient not taking: Reported on 05/01/2022) furosemide (LASIX) 20 mg tablet Take 1 tablet (20 mg total) by mouth daily as needed (leg swelling)60 tablet 0 No facility-administered encounter medications on file as of 11/27/2022. Allergies Allergen Reactions Codeine Hives and Shortness of breath Latex Itching Tramadol Nausea & Vomiting and Unknown Physical Exam: BP (!) 179/75 Pulse 63 Wt 78.7 kg (173 lb 9.6 oz) SpO2 99% BMI 30.75 kg/m?? BP Readings from Last 3 Encounters: 11/27/22 (!) 179/75 10/18/22 146/83 05/01/22 116/72 Wt Readings from Last 3 Encounters: 11/27/22 78.7 kg (173 lb 9.6 oz) 10/18/22 84.6 kg (186 lb 8 oz) 05/01/22 79.8 kg (176 lb) General: older white woman well-developed, well nourished, no acute distress HEENT: Extraocular muscles intact, conjunctivae clear, anicteric sclera, + dentures Neck: Supple. No goiter. Jugular venous pressure is normal. Respiratory: Clear to auscultation bilaterally; no wheezing/rales/rhonchi; respirations unlabored Cardiovascular: Normal rate and regular rhythm, normal S1 and S2. No S3 or S4. No murmurs. Carotid upstrokes brisk bilaterally and without bruits. Abdomen: soft, non-tender, no palpable masses, no hepatosplenomegaly Extremities: no cyanosis or clubbing. No pitting edema. Musculoskeletal: no obvious joint deformities Skin: no obvious rash or bruising Psychiatric: normal affect and mood Neurologic: awake/alert, uses a cane Results: I have personally reviewed the following: Lab Results Component Value Date SODIUM 140 10/18/2022 POTASSIUM 4.5 10/18/2022 BUNSER 21 10/18/2022 BUNSER 17 05/01/2022 BUNSER 15 01/18/2019 CREATININE 1.15 (H) 10/18/2022 CREATININE 1.25 (H) 05/01/2022 CREATININE 1.30 (H) 05/02/2021 Lab Results Component Value Date CHOL 174 05/02/2021 CHOL 180 12/23/2018 LDL 87 09/04/2015 LDL 118 09/04/2012 LDLDIRECT 93 05/02/2021 LDLDIRECT 90 12/23/2018 ECG 12/29/2019 sinus bradycardia, HR 51, anterolateral TWI in I, aVL, V3-6, normal axis, normal MD, QRS and QT intervals. 30-day monitor 05/2022 with paroxysmal afib with RVR, NSVT. Assessment/Plan: Tiera Lobato is a 77 y.o. female with the following: Apical variant HCM She had a 30-day [...] and siblings for HCM with an echo. 2. CAD with prior CO and CABG in 2012 (LAWSON-LAD, SVG-OM). She had a recent admission at [facility] 03/2022 with chest pain/shortness of breath. Troponins were minimally elevated. Nuclear stress test was negative. May stop aspirin as she is on apixaban and clopidogrel. Low threshold to discontinue clopidogrel ifany bleeding. Continue metoprolol, atorvastatin, ezetimibe, lisinopril. 3. Hypertension, bp high here, reportedly normal at her assisted living facility. Continue current meds. Monitor BID bps x 1 week and send. 4. Paroxysmal atrial fibrillation, continue apixaban, metoprolol for rate control. 5. NSVT on monitor 05/2022. Asked her to call if more palpitations in which case can increase metoprolol. 6. Osteoporosis with history of pathologic fracture Return to clinic in 6 months. I appreciate the opportunity to participate in Ms. Lobato's care. Please feel free to contact me at with any questions or concerns. Sincerely, Sami Stafford MD, MPHS, FACC care clinician Cardiovascular Division [facility] in [facility] --- Please note: This note was generated in part using voice-recognition software and may contain nipple machine operator errors. documented in this encounter Plan of Treatment Not on file documented as of this encounter Visit Diagnoses Diagnosis Apical variant hypertrophic cardiomyopathy (HCC)- Primary Coronary artery disease involving t[place] river coronary artery of t[place] river heart without angina pectoris Primary hypertension Unspecified essential hypertension Paroxysmal atrial fibrillation (CMS/HCC) (HCC) Atrial fibrillation documented in this encounter Care Teams Digital Photographic Printer Relationship Specialty Start Date End Date Cristian Ling MD [address] [place] [address] PCP - General 10/16/16 documented as of this encounter
--- OUTSIDE RECORDS SUMMARY | 2024-06-12 03:58 | XMS_ITS | Encounter Summary ---
Author Organization [facility] Address [address] [place] [address] Phone Care Team Providers Care Commercial Photographer Name Role Phone Cristian Ling MD Primary Care Prov ider Reason for Referral * Cardiology (Routine) - Closed Specialty Diagnoses / Procedures Referred By Contac t Referred To Contact Diagnoses Atrial fibrillation, unspecified type (HCC) Procedures ECG 12 lead Sami Stafford MD [address] [address] Phone: tel: fax: [facility] (All Locations) Referral ID Status Reason Start Date Expiration Date Visits Re quested Visits Authorized [id number] Closed 01/13/2023 02/12/2024 1 1 Reason for Visit * Consultation (Routine) - Closed Specialty Diagnoses / Procedures Referred By Contac t Referred To Contact Cardiology Diagnoses Chronic coronary artery disease Hx of CABG Primary hypertension Sami Stafford MD [address] [address] Phone: tel: fax: [facility] (All Locations) Referral ID Status Reason Start Date Expiration Date V isits Requested Visits Authorized [id number] Closed Specialty Services Required 11/25/2022 11/27/2023 12 12 Encounter Details Date Type Department Care Team (Late st Contact Info) Description 01/13/2023 10:30 AM CDT Office Visit [facility] Cardiology [address] [place] [address] Sami Stafford MD [address] [place] [address] Acute on chronic heart failure with preserved ejection fraction (HFpEF) (CMS/HCC) (HCC) (Primary Dx); Hypertrophic cardiomyopathy (CMS/HCC) (HCC); Paroxysmal atrial fibrillation with RVR (HCC); Worsening renal function Social History Tobacco Use Types Packs/Day Years Used Date Smoking Tobacco: Never Passive Smoke Exposure: Current Smokeless Tobacco: Never Tobacco Cessation:Counseling Given: Not Answered AUDIT-C Answer Date Recorded Q1: How often [...] on file 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 Gender Identity Female 02/07/2021 4:33 PM CDT Sexual Orientation Straight 02/07/2021 4: 33 PM CDT documented as of this encounter Last Filed Vital Signs Vital Sign Reading Time Taken Comments Blood Pressure 123/84 01/13/2023 10:55 AM CDT Pulse 113 01/13/2023 10:55 AM CDT Temperature 36.4 ??C (97.5 ??F) 01/13/2023 10:55 AM C DT Respiratory Rate - - Oxygen Saturation 98% 01/13/2023 10:55 AM CDT Inhaled Oxygen Concentration - - Weight 85.7 kg (189 lb) 01/13/2023 10:55 AM CDT Height 162.6 cm (5' 4 ) 01/13/2023 10:55 AM CDT Body Mass Index 32.44 01/13/2023 10:55 AM CDT documented in this encounter Patient Instructions * Patient Instructions* Sami Stafford MD - 01/13/2023 10:30 AM CDT ECG today Increase furosemide to 40 mg twice daily. Increase metoprolol xl to 50 mg daily. Will arrange for a cardioversion to restore normal heart rhythm. Repeat echocardiogram Labs this - BMP, BNP ([facility]) Continue to monitor daily weights and twice daily blood pressures, heart rates. Symptom, vital signs update this . Limit sodium and fluid intake. documented in this encounter Ordered Prescriptions Prescription Sig Dispense Quantity Refills Last Filled Start Date End Date metoprolol XL (TOPROL-XL) 50 mg extended release tabletIndications: Paroxysmal atrial fibrillation with RVR (HCC) Take 1 tablet (50 mg total) by mouth daily 30 tablet 11 01/13/2023 01/22/2023 furosemide (LASIX) 40 mg tabletIndications: Acute on chronic heart failure with preserved ejection fraction (HFpEF) (CMS/HCC) (HCC) Take 1 tablet (40 mg total) by mouth 2 (two) times a day 60 tablet 11 01/13/2023 03/21/2023 documented in this encounter Progress Notes * Sami Stafford MD - 01/13/2023 10:30 AM CDT Images from the original note were not included. Department of Medicine Sami Stafford MD, MPHS, [facility] Cardiovascular Division refrigerating oiler Patient Name: Tiera Lobato : 1945 Date [...] 4 ) Wt 85.7 kg (189 lb) KtF194% BMI 32.44 kg/m?? BP Readings from Last [...] in I, aVL, V3-6, normal axis, normal NM, QRS and QT intervals. 30-day monitor 05/2022 [...] HCM with an echo. CAD with prior [place] and CABG in 2012 ([facility]WSON-LAD, SVG-OM). She had a recent admission at [facility] 03/2022 with chest pain/shortness of breath. Troponins [...] or concerns. Sincerely, Sami Stafford MD, MPHS, [facility] refrigerating oiler Cardiovascular Division [facility] --- Please note: This note was generated in part using voice-recognition software and may contain garage manager errors. documented in this encounter Plan of Treatment Scheduled Orders Name Type Priority Associated Diagnoses Orde r Schedule Basic metabolic panel Lab Routine Acute on chronic heart failure with preserved ejection fraction (HFpEF) (CMS/HCC) (HCC) Expected: 01/13/2023, Expires: 01/14/2024 documented as of this encounter Procedures Procedure Name Priority Date/Time Associated Diagnosis Comments PRO B-TYPE NATRIURETIC PEPTIDE Routine 01/16/2023 11:10 AM CDT Acute on chronic heart failure with preserved ejection fraction (HFpEF) (CMS/HCC) (HCC) BASIC METABOLIC PANEL Routine 01/16/2023 11:10 AM CDT ECG 12-LEAD Routine 01/13/2023 Paroxysmal atrial fibrillation with RVR ([facility]) documented in this encounter Results * (ABNORMAL) Basic metabolic panel (01/16/2023 11:10 AM CDT) Glucose 118(H) 65 - 99 mg/dL [facility] Comment: ? Fasting reference interval For someone without known diabetes, a glucose value between 100 and 125 mg/dL is consistent with prediabetes and should be confirmed with a follow-up test. BUN 44(H) 7 - 25 mg/dL [facility] Creatinine 1.95(H) 0.60 - 1.00 mg/dL [facility] eGFR 26(L) > OR = 60 mL/min/1.7 3m2 [facility] BUN/creat ratio 23(H) 6 - 22 (calc) [facility] Sodium 142 135 - 146 mmol/L [facility] Potassium, pl 4.2 3.5 - 5.3 mmol/L [facility] Chloride 102 98 - 110 mmol/L [facility] CO2 28 20 - 32 mmol/L [facility] Calcium 10.0 8.6 - 10.4 mg/dL [facility] 01/16/2023 11:1 0 AM CDT 01/16/2023 11:10 AM CDT us Sami Stafford MD LAB BLOOD ORDERABLES Final Re sult Performing Organization Address [facility] Co de Phone Number [facility] [address] [place] [address] * (ABNORMAL) Pro B-type natriuretic peptide (01/16/2023 11:10 AM CDT) NT PROBNP 4,414(H) <450 pg/mL [facility] Blood 01/16/2023 11:1 0 AM CDT 01/16/2023 11:10 AM CDT us Sami Stafford MD LAB BLOOD ORDERABLES Final Re sult Performing Organization Address [facility] Co de Phone Number [facility] [address] [place] [address] * ECG 12 lead (01/13/2023) us Sami Stafford MD ECG ORDERABLES Final Result documented in this encounter Visit Diagnoses Diagnosis Acute on chronic heart failure with preserved ejection fraction (HFpEF) (CMS/HCC) (HCC)- Primary Hypertrophic cardiomyopathy (CMS/HCC) (HCC) Other primary cardiomyopathies Paroxysmal atrial fibrillation with RVR (HCC) Worsening renal function documented in this encounter Discontinued Medications Medication Sig Discontinue Reason Start Date End Da te metoprolol XL (TOPROL-XL) 25 mg extended release tablet Take 1 tablet (25 mg total) by mouth daily Reorder 11/14/2022 01/13/2023 furosemide (LASIX) 20 mg tablet Take 1 tablet (20 mg total) by mouth daily as needed (leg swelling) Reorder 12/30/2022 01/13/2023 documented as of this encounter Care Teams Commercial Photographer Relationship Specialty Start Date End Date Cristian Ling MD [address] [place] [address] PCP - General 10/16/16 documented as of this encounter
--- OUTSIDE RECORDS SUMMARY | 2024-06-12 03:58 | XMS_ITS | Encounter Summary ---
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 Gender Identity Female 02/07/2021 4:33 PM CDT Sexual Orientation Straight 02/07/2021 4: 33 PM CDT documented as of this encounter Plan of Treatment Not on file documented as of this encounter Procedures Procedure Name Priority Date/Time Associated Diagnosis Comments DIFFERENTIAL AUTO Routine 11/27/2022 1:2 0 PM CDT Anemia, unspecified type CBC WITH AUTO DIFFERENTIAL Routine 11/27/2022 1:20 PM CDT Anemia, unspecified type documented in this encounter Results * Differential, auto (11/27/2022 1:20 PM CDT) Neutrophil abs 2.7 1.7 - 6.5 K/cumm [facility] Imm gran abs 0.0 0.0 - 0.1 K/cumm [facility] Lymphocyte abs 1.5 0.8 - 3.3 K/cumm [facility] Monocyte abs 0.6 0.2 - 0.8 K/cumm [facility] Eosinophil abs 0.3 0.0 - 0.5 K/cumm [facility] Basophil abs 0.1 0.0 - 0.1 K/cumm [facility] Neutrophil pct 52.7 % [facility] Comment: Interpretive Data Percent cell count reference ranges are not reported, since discordance with absolute values may lead to misinterpretation of CBC data. Current Interpretive Data was last revised on 2017. Imm gran pct 0.2 % [facility] Comment: Interpretive Data Percent cell count reference ranges are not reported, since discordance with absolute values may lead to misinterpretation of CBC data. Current Interpretive Data was last revised on 2017. Lymphocyte pct 28.7 % [facility] Comment: Interpretive Data Percent cell count reference ranges are not reported, since discordance with absolute values may lead to misinterpretation of CBC data. Current Interpretive Data was last revised on 2017. Monocyte pct 11.1 % [facility] Comment: Interpretive Data Percent cell count reference ranges are not reported, since discordance with absolute values may lead to misinterpretation of CBC data. Current Interpretive Data was last revised on 2017. Eosinophil pct 6.3 % [facility] Comment: Interpretive Data Percent cell count reference ranges are not reported, since discordance with absolute values may lead to misinterpretation of CBC data. Current Interpretive Data was last revised on 2017. Basophil pct 1.0 % [facility] Comment: Interpretive Data Percent cell count reference ranges are not reported, since discordance with absolute values may lead to misinterpretation of CBC data. Current Interpretive Data was last revised on 2017. Blood 11/27/2022 1:20 PM CDT 11/27/2022 1:28 PM CDT Katja Linares MD LAB BLOOD ORDERABLES Caitlyn l Result Performing Organization Address City/[facility]/ZIP Co de Phone Number [facility] [place] [address] * (ABNORMAL) CBC with auto differential (11/27/2022 1:20 PM CDT) [facility] WBC 5.1 3.8 - 9.9 K/cumm [facility] Hgb 10.0(L) 11.9 - 15.5 g/dL [facility] Hct 31.1(L) 35.6 - 45.5 % [facility] Plt 178 150 - 400 K/cumm [facility] MPV 12.0 9.1 - 12.3 fL [facility] RBC 3.30(L) 3.90 - 5.20 M/cumm [facility] MCV 94.2 81.3 - 96.4 fL [facility] MCH 30.3 27.1 - 33.3 pg [facility] MCHC 32.2(L) 32.3 - 35.7 g/dL [facility] RDW CV 13.2 11.1 - 14.9 % [facility] RDW SD 45.7 35.7 - 48.1 fL [facility] NRBC abs 0.00 0.00 - 0.01 K/cumm [facility] Blood 11/27/2022 1:20 PM CDT 11/27/2022 1:28 PM CDT Katja Linares MD LAB BLOOD ORDERABLES Caitlyn l Result [facility] [place] [address] documented in this encounter Visit Diagnoses Diagnosis Anemia, unspecified type documented in this encounter Care Teams Tax Technician Relationship Specialty Start Date End Date Cristian Ling MD [address] [place] [address] PCP - General 10/16/16 documented as of this encounter
--- OUTSIDE RECORDS SUMMARY | 2024-06-12 03:58 | XMS_ITS | Encounter Summary ---
Author Organization [facility] Address [address] [place] [address] Phone Care Team Providers Care Melt Room Operator Name Role Phone Cristian Ling MD Primary Care Prov ider Reason for Visit * Reason Onset Date Comments Med Refill 10/22/2022 Encounter Details Date Type Department Care Team (Late st Contact Info) Description 10/22/2022 Telephone [facility] Cardiology [address] [facility] Advanced Medicine [address] [place] [address] [place] [address] Sami Stafford MD [address] [place] [address] Med Refill Social History Tobacco [...] file 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 documented in this encounter Plan of Treatment Not on file documented as of this encounter Visit Diagnoses Not on filedocumented in this encounter Discontinued Medications Medication Sig Discontinue Reason Start Date End Da te Eliquis 5 mg tablet TAKE 1 TABLET BY MOUTH TWICE DAILY Reorder 09/17/2022 10/23/2022 documented as of this encounter Care Teams Melt Room Operator Relationship Specialty Start Date End Date Cristian Ling MD [address] [place] [address] PCP - General 10/16/16 documented as of this encounter
--- OUTSIDE RECORDS SUMMARY | 2024-06-12 03:58 | XMS_ITS | Encounter Summary ---
Author Organization [facility] Healthcare Address [address] [place] [address] Care Team Providers Care Department Of Mathematics Chair Name Role Phone Cristian Ling MD Primary Care Prov ider Reason for Referral * Diagnostic Imaging (Routine) - Closed Specialty Diagnoses / Procedures Referred By Contac t Referred To Contact Diagnoses Primary osteoarthritis of right hip Procedures FL Fluoro Guided Injection Hip Right Jamari Briseno MD [address] [place] [address] Phone: tel: fax: [facility] Referral ID Status Reason Start Date Expiration Date Visits Re quested Visits Authorized [id number] Closed 11/25/2022 12/25/2023 1 1 Reason for Visit * Diagnostic Imaging (Routine) - Closed Specialty Diagnoses / Procedures Referred By Contac t Referred To Contact Diagnoses Primary osteoarthritis of right hip Procedures FL Fluoro Guided Injection Hip Right Jamari Briseno MD [address] [place] [address] Phone: tel: fax: [facility] Referral ID Status Reason Start Date Expiration Date Visits Re quested Visits Authorized [id number] Closed 11/25/2022 12/25/2023 1 1 Encounter Details Date Type Department Care Team (Latest Contact Info) Description 12/10/2022 1:09 PM CDT - 12/10/2022 11:59 PM CDT Hospital Encounter [facility] [address] [place] [address] Jamari Briseno MD 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 Gender Identity Female 02/07/2021 4:33 PM CDT Sexual Orientation Straight 02/07/2021 4: 33 PM CDT documented as of this encounter Last Filed Vital Signs Vital Sign Reading Time Taken Comments Blood Pressure 151/71 12/10/2022 2:06 PM CDT Pulse 55 12/10/2022 2:06 PM CDT Temperature - - Respiratory Rate 16 12/10/2022 2:06 PM CDT Oxygen Saturation 99% 12/10/2022 2:06 PM CDT Inhaled Oxygen Concentration - - Weight - - Height - - Body Mass Index - - documented in this encounter Discharge Instructions * Patient Instructions* Jamari Briseno MD - 12/10/2022 1:40 PM CDT Post Procedure Instructions You received a [...] those with type 1 diabetes. Check fasting (children's literature professor prior to first meal of the day) [...] concerns after hours, call our exchange at [phone]. For all other questions regarding the procedure, please call our office at [phone]. Pain Diary Please fill out the pain diary chart below and call or message via [employer] the medical provider whorequested the injection, Dr. [...] (TYLENOL) 325 mg tablet 09/21/2012 03/21/2023 apixaban (Eliquis) 5 mg tablet Take 1 tablet (5 mg total) by mouth 2 (two) times a day 180 tablet 1 10/23/2022 12/23/2022 aspirin 81 mg tablet daily. 09/21/2012 03/21/2023 [...] mouth daily 90 tablet 3 11/14/2022 01/13/2023 multivitamin no.44-vit D3-K 1,000-800 unit-mcg capsule daily. [...] Progress Notes * Jamari Briseno MD - 12/10/2022 1:40 PM CDT Right Fluoroscopically-Guided Hip Joint Injection [facility] Department of Orthopedic Surgery Division of Physical Medicine and Rehabilitation Patient name: Tiera Lobato Date of : 1945 Date of service: 12/10/2022 Tiera Lobato presents to the fluoroscopy suite for a fluoroscopically guided right hip injection as part of conservative treatment for hip osteoarthritis. After informed consent was obtained, the patient [...] capsule was attained with the infusion of 0.5mL of Conray contrast which showed capsular flow. Then, a combination of 1 mL of 1% lidocaine, 3 mLof 0.2% ropivacaine, and 40 mg of 40 mg/mL Kenalog was infused. The patient tolerated the procedurewithout complications. Pre and post procedure blood pressures [...] obtained by injecting approximately 0.5 mL of Conray contrast. There was no evidence of vascular uptake noted. I personally performed or was present for the entire procedure above. Jamari Briseno MD documented in this encounter Plan of Treatment Not on file documented as of this encounter Procedures Procedure Name Priority Date/Time Associated Diagnosis Comments FLUORO GUIDED INJECTION HIP RIGHT Schedule Routine, Read Routine (OP Routine) 12/10/2022 1:59 PM CDT Primary osteoarthritis of right hip documented in this encounter Results * FL Fluoro Guided Injection Hip Right (12/10/2022 1:59 PM CDT) Narrative [facility] - 12/10/2022 2:00 PM CDT The images from this study are not interpreted by Radiology. ??Please refer to the physician's procedure / OR operative note. Jamari Briseno MD IMG FLUOROSCOPY PROCEDURES Final Result [facility] documented in this encounter Visit Diagnoses Diagnosis Primary osteoarthritis of right hip documented in this encounter Administered Medications Inactive Administered Medications - up to 3 most recent administrations Medication Order MAR Action Action Date Dose Rate Site iothalamate meglumine (CONRAY) 60 % injection As needed, Starting on Fri12/10/22 at 1342, Intra-Op Given 12/10/2022 1:42 PM CDT 0.5 mL lidocaine PF (XYLOCAINE) 10 mg/mL (1 %) preservative free injection As needed, Starting on 12/10/22 at 1342, Intra-Procedure (IR), Indications: Administration of Local AnesthesiaIndications:Administrati on of Local Anesthesia Given 12/10/2022 1:42 PM CDT 2 mL ROPivacaine (NAROPIN) 2 mg/mL (0.2 %) preservative free injection As needed, Starting on 12/10/22 at 1342, Intra-Op Given 12/10/2022 1:42 PM CDT 4 mL triamcinolone (KENALOG) 40 mg/mL injection As needed, Starting on 12/10/22 at 1342, Intra-Op Given 12/10/2022 1:42 PM CDT 40 mg documented in this encounter Care Teams Department Of Mathematics Chair Relationship Specialty Start Date End Date Cristian Ling MD [address] [place] [address] PCP - General 10/16/16 documented as of this encounter
--- OUTSIDE RECORDS SUMMARY | 2024-06-12 03:58 | XMS_ITS | Encounter Summary ---
Author Organization [facility] Address [address] [place] [address] Phone Care Team Providers Care Family Service Assistant Name Role Phone Cristian Ling MD Primary Care Prov ider Reason for Visit * Reason Onset Date Comments Injections 12/10/2022 Pain diary Encounter Details Date Type Department Care Team (Late st Contact Info) Description 01/22/2023 Telephone [facility] Orthopaedic Surgery [address] [place] [address] Jamari Rodríguez MD 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 80 6 hours after? 80 24 hours after?80 4 days after? 100 1 week after? 100 10 days after? 100 2 weeks after?100 How would you rate your overall improvement since your injection? Good Are you currently in Physical Therapy? no How many sessions have you attended? 0 Are you performing a monitored home exercise program? Just walk Has your injection improved your ability to perform activities of daily living with less pain? yes Are you happy with your improvement level? yes documented in this encounter Plan of Treatment Not on file documented as of this encounter Visit Diagnoses Not on filedocumented in this encounter Care Teams Family Service Assistant Relationship Specialty Start Date End Date Cristian Ling MD [address] [place] [address] PCP - General 10/16/16 documented as of this encounter
--- OUTSIDE RECORDS SUMMARY | 2024-06-12 03:58 | XMS_ITS | Encounter Summary ---
Author Organization [facility] Healthcare Address [address] [place] [address] Care Team Providers Care Air Carrier Maintenance Inspector Name Role Phone Cristian Ling MD Primary Care Prov ider Belinda Quigley GALLERY HOST Unavailable [phone] Encounter Details Date Type Department Care Team (Late st Contact Info) Description 02/15/2023 Orders Only [facility] Information Management [address] [place] [id number] Scanning, Provider Social History Tobacco Use Types Packs/Day Years Used Date Smoking Tobacco: Never Passive Smoke Exposure: Current Smokeless Tobacco: Never [facility] Utilities Answer Date Recorded In the past 12 months has [facility] electric, gas, oil, or water [employer] threatened to shut off services in [...] week 12/04/2023 How often do you attend muslim or moravian serv ices? Never 12/04/2023 Do you belong to any clubs o r organizations such as muslim groups, unions, fraternal or athletic groups, or [...] staff should administer the PHQ-9) 0 09/28/2020 [facility] - Occupational Stress Questionnaire Answer Date [...] time in the past 12 m [facility], were you homeless or living in a prison (including now)? No 12/04/2023 Personal Safety Answer Date Recorded Have you ever been in or are you currently in a harmful physical or emotional relationship or is someone making you feel afraid or unsafe? 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 difficile suspected 11/24/2023 11/25/202311/24 10:38 AM CDT COVID: Suspected 12/07/2023 12/07/2023 12/07/2023 5:54 PM CDT documented as of this encounter Care Teams Air Carrier Maintenance Inspector Relationship Specialty Start Date End Date Cristian Ling MD [address] [place] [address] PCP - General 10/16/16 Belinda Quigley, SERG [address] [facility] ([facility] Mailstop [phone] [place] [address] SHOP Outpatient Cash Posting Specialist 12/04/23 12/30/23 documented as of this encounter
--- OUTSIDE RECORDS SUMMARY | 2024-06-12 03:58 | XMS_ITS | Encounter Summary ---
Author Organization [facility] Address [address] [place] [address] Phone Care Team Providers Care High School Music Instructor Name Role Phone Cristian Ling MD Primary Care Prov ider Reason for Visit * Reason Onset Date Comments Confirmation 09/04/2022 Encounter Details Date Type Department Care Team (Late st Contact Info) Description 09/04/2022 Telephone [facility] Hematology [facility] 7th [place] [address] [place] [address] Sully Owens Confirmation Social History Tobacco Use Types Packs/Day Years [...] on file 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 patient and she will not be able to keep her appt. with Dr. Esther Linares on 09-06-22 @ 10:15 AM at [facility] due to not having transportation. She was transferred to [facility] to reschedule. documented in this encounter Plan of Treatment Not on file documented as of this encounter Visit Diagnoses Not on filedocumented in this encounter Care Teams High School Music Instructor Relationship Specialty Start Date End Date Cristian Ling MD [address] [place] [address] PCP - General 10/16/16 documented as of this encounter
--- OUTSIDE RECORDS SUMMARY | 2024-06-12 03:58 | XMS_ITS | Encounter Summary ---
Author Organization [facility] Healthcare Address [address] [place] [address] Care Team Providers Care Humanities Department Chair Name Role Phone Cristian Ling MD Primary Care Prov ider Reason for Visit * Auth/Cert (Routine) Specialty Diagnoses / Procedures Referred By Contac t Referred To Contact Diagnoses Atrial fibrillation, unspecified type (HCC) Atrial fibrillation, unspecified type (HCC) [I48.91] Procedures SC CARDIOVERSION ELECTIVE ARRHYTHMIA EXTERNAL CARDIOVERSION 57782 Referral ID Status Reason Start Date Expiration Date Visits Re quested Visits Authorized [id number] 1 1 Encounter Details Date Type Department Care Team (Late st Contact Info) Description 01/20/2023 8:26 AM CDT Anesthesia Event [facility] [address] [place] [address] Estevan Troy MD [address] [facility] [address] [place] [address] Anesthesia Record Procedure Summary Procedure Name Responsible Anesthesiologist Anesthesia Start Time Anesthesia Stop Time CARDIOVERSION 45042 Estevan Troy MD 01/20/23 0826 01/20/23 0837 Events Date Time Event Comment 01/20/2023 0826 An Start 0827 Face Time 0828 An Induction The patient was reevaluated immediately before moderate or deep sedation use and before anesthesia induction. 0828 Mask general 0831 Anesthesia Ready 0832 Cardioversion 0837 Handoff to RN I completed my handoff [...] the time of handoff: No value filed. 0837 An Stop Meds Name Total lidocaine (cardiac) syringe 2 % 40 mg propofol 50 mg sodium chloride 0.9% infusion 17.5 mL * Agents Name O2 * Blood No blood administrations on file. 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 CARDIAC RADIAGRAPH OPERATOR Anesthesia Start: 825 Anesthesia Stop: 836 Procedure: CARDIOVERSION 52038 Diagnosis: Atrial fibrillation, unspecified type (HCC) (Atrial fibrillation, unspecified type (HCC) [I48.91]) Providers: Kel Arteaga MD PhD Responsible Provider: Estevan Troy MD Anesthesia Type: MAC ASA Status: 4 Anesthesia Type: MAC Last vitals BP 129/68 Pulse 121 Temp 36.6 ??C (97.9 ??F) (Oral) Resp 8 SpO2 93% Anesthesia Post Evaluation Patient location during evaluation: PACU Patient participation: complete - patient participated Level of consciousness: fully awake and follows simple commands Pain score: 0 Pain management: adequate Airway patency: adequate Evidence of recall: no Cardiovascular status: acceptable and blood pressure returned to baseline Respiratory status: acceptable and face mask Hydration status: acceptable Pt is: normothermic Nausea/Vomiting status: none No notable events documented. Cosigned by Estevan Troy MD at 01/20/2023 9:03 AM CDT * Anesthesia Preprocedure Evaluation - Estevan Troy MD - 01/20/2023 5:32 AM CDT Images from the original note were not included. Anesthesia Evaluation Tiera Lobato is a 77 y.o. 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 Hypertension History of AL (myocardial infarction) Lumbar stenosis with neurogenic claudication Other osteoporosis without current pathological fracture Right hip pain Apical variant hypertrophic cardiomyopathy (HCC) Paroxysmal atrial fibrillation (CMS/HCC) (HCC) Atrial fibrillation (CMS/HCC) (HCC) Past Medical History: Diagnosis Date Acid reflux Heart murmur High cholesterol History of blood clots 1960s in leg as teenager - had phlebitis History of AL (myocardial infarction) 2012 History of vertebral fracture 2017 HTN (hypertension) IBS (irritable bowel syndrome) Vertigo Past Surgical History: Procedure Laterality Date COLON SURGERY 1992 Repair burst colon CORONARY ARTERY BYPASS GRAFT 2012 Double by-pass - [facility] FLUORO GUIDED INJECTION HIP RIGHT Right 05/16/2022 FLUORO GUIDED INJECTION HIP RIGHT Right 08/15/2022 FLUORO GUIDED INJECTION HIP RIGHT Right 12/10/[address] James ([place], [place]) TOTAL KNEE ARTHROPLASTY Right 2018 OB [...] daily Notes: Increased dose metoprolol XL (TOPROL-XL) 50 mg extended release tablet -- 01/13/23 -- Sami Stafford MD Take 1 tablet (50 mg total) by mouth daily Notes: Increased dose. multivitamin no.44-vit D3-K 1,000-800 unit-mcg capsule -- -- -- Fidel Carranza MD omeprazole (PriLOSEC) 20 mg capsule -- -- -- Fidel Carranza MD sertraline (ZOLOFT) 100 mg tablet -- 11/09/19 -- Fidel Carranza MD No current facility-administered medications for this encounter. Current Outpatient Medications: acetaminophen (TYLENOL) 325 mg tablet alendronate (FOSAMAX) [...] (PRINIVIL,ZESTRIL) 10 mg tablet metoprolol XL (TOPROL-XL) 50 mg extended release tablet multivitamin no.44-vit D3-K 1,000-800 unit-mcg capsule omeprazole (PriLOSEC) 20 mg capsule sertraline (ZOLOFT) 100 mg tablet Social History Tobacco Use Smoking Status Never [...] labs within last 30 days. BMP Glucose: 01/16/2023: 118 mg/dL (H) Calcium: 01/16/2023: 10.0 mg/dL Sodium: 01/16/2023: 142 mmol/L Potassium: 01/16/2023: 4.2 mmol/L CO2: 01/16/2023: 28 mmol/L Chloride: 01/16/2023: 102 mmol/L BUN: 01/16/2023: 44 mg/dL (H) Creatinine: 01/16/2023: 1.95 mg/dL (H) DOS Physical Exam Attestation: I endorse the findings of the anesthesia pre-evaluation assessment dated: 01/20/2023. Airway Exam: Mallampati: II Cervical ROM: FROM Cardiovascular Exam: Rate: regular Rhythm: irregular Pulmonary Exam: LCTA, bilat Dental Exam: Upper dentures and lower dentures Current state: Patient's current state is cooperative and interactive. Anesthesia Plan ASA 4 My patient is approved for the Anesthesia Controlled Medication protocol when under care of a EDUCATION TRAINER Planned anesthesia: MAC Induction: Induction: intravenous. Postoperative Plan: No plan for postoperative opioid use. No postoperative mechanical ventilation intended. Patient's planned disposition post procedure is Outpatient. No trial extubation planned. Informed Consent: Discussed plan with EDUCATION TRAINER. Anesthesia plan and risks discussed with patient. [...] MAR Action Action Date Dose Rate Site lidocaine (cardiac) (XYLOCAINE) preservative free injection intravenous, As needed, Starting on Fri01/20/23 at 0828, Anesthesia Intra-op, Indications: Ventricular ArrhythmiasIndications:Ventricular Arrhythmias Given 01/20/2023 8:28 AM CDT 40 mg propofoL (DIPRIVAN) 10 mg/mL IV intravenous, As needed, Starting on Fri01/20/23 at 0828, Anesthesia Intra-op Given 01/20/2023 8:31 AM CDT 10 mg Given 01/20/2023 8:30 AM CDT 20 mg Given 01/20/2023 8:28 AM CDT 20 mg sodium chloride 0.9% infusion 50 mL/hr, intravenous, Continuous, Starting on Fri01/20/23 at 0745, Pre-Procedure (CV) Rate/Dose Verify 01/20/2023 8:26 AM CDT 50 mL/hr New Bag 01/20/2023 8:14 AM CDT 50 mL/hr 50 mL/hr documented in this encounter Care Teams Humanities Department Chair Relationship Specialty Start Date End Date Cristian Ling MD [address] [place] [address] PCP - General 10/16/16 documented as of this encounter
--- OUTSIDE RECORDS SUMMARY | 2024-06-12 03:58 | XMS_ITS | Encounter Summary ---
Author Organization [facility] Address [address] [place] [address] Phone Care Team Providers Care Lace Roller Name Role Phone Cristian Ling MD Primary Care Prov ider Reason for Referral * Diagnostic Imaging (Routine) - Closed Specialty Diagnoses / Procedures Referred By Contac t Referred To Contact Diagnoses Primary osteoarthritis of right hip Right hip pain Procedures FL Fluoro Guided Injection Hip Right Jamari Rodríguez MD [address] [facility] [address] [place] [address] Phone: tel: fax: [facility] [address] [place] [address] Referral ID Status Reason Start Date Expiration Date Visits Re quested Visits Authorized [id number] Closed 08/06/2022 09/05/2023 1 1 ANALYST Encounter Details Date Type Department Care Team (Late st Contact Info) Description 08/06/2022 Orders Only [facility] Orthopaedic Surgery [address] [facility] 2nd Floor [address] [place] [address] Jamari Rodríguez MD [address] [facility] [address] [place] [address] Primary osteoarthritis of right hip [...] on file Legal Sex Female 7:12 AM EPIC ANALYST Gender Identity Female 02/07/2021 4:33 PM CDT Sexual Orientation Straight 02/07/2021 4: 33 PM CDT documented as of this encounter Plan of Treatment Not on file documented as of this encounter Results * FL Fluoro Guided Injection Hip Right (08/15/2022 2:33 PM EPIC ANALYST) Narrative [id number] - 08/15/2022 2:33 PM EPIC ANALYST The images from this study are not [...] region and thigh documented in this encounter Care Teams Lace Roller Relationship Specialty Start Date End Date Cristian Ling MD [address] [place] [address] PCP - General 10/16/16 documented as of this encounter
--- OUTSIDE RECORDS SUMMARY | 2024-06-12 03:58 | XMS_ITS | Encounter Summary ---
Author Organization [facility] Address [address] [place] [address] Phone Care Team Providers Care Ditch Inspector Name Role Phone Cristian Ling MD Primary Care Prov ider Encounter Details Date Type Department Care Team (Late st Contact Info) Description 02/11/2023 Telephone [facility] Cardiology [address] [facility] 8th [place] [address] [place] [address] Sami Stafford MD [address] [facility] [address] [place], [place] [id number] Social History Tobacco Use Types Packs/Day Years [...] on file 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 Pt was admitted to [facility] last week, discharged last week. 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 Pt was dizzy and EMS was called. She is at [facility] ER, they have initiated transfer to [place]. Pt's son just wanted to let us know what was going on/see if we had any input or recs. I told him we defer to ER doctors if they feel that pt needs higher level of care, agree she shold come to [place]. I told him I would update Dr. Stafford on plan of care. He was appreciative. * Telephone Encounter - Yara Espinosa - 02/11/2023 10:44 AM CDT Rivera Pt's son calling to speak with a nurse in regards to the pt being currently admitted to [facility] in [place], [place]. documented in this encounter Plan of Treatment Not on file documented as of this encounter Visit Diagnoses Not on filedocumented in this encounter Care Teams Ditch Inspector Relationship Specialty Start Date End Date Cristian Ling MD [address] [place] [address] PCP - General 10/16/16 documented as of this encounter
--- OUTSIDE RECORDS SUMMARY | 2024-06-12 03:58 | XMS_ITS | Encounter Summary ---
Author Organization [facility] Address [address] [place] [address] Phone Care Team Providers Care Chalk Extruding Machine Operator Name Role Phone Cristian Ling MD Primary Care Prov ider Encounter Details Date Type Department Care Team (Late st Contact Info) Description 01/10/2023 Telephone [facility] Cardiology [address] [facility] 8th [place] [address] [place] [address] Sami Stafford MD [address] [facility] [address] [place], [place] [id number] Social History Tobacco Use Types Packs/Day Years [...] on file 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 She asked if Dr. Stafford or myself could call her son, as he had questions. Attempted to contact pt;sson but number does not work. I called pt back to verify number is correct- it is. Called again andno ring, but did go to voicemail. I left detailed message on recording for pt;s son. * Telephone Encounter - Yara Espinosa - 01/10/2023 10:39 AM CDT Rivera Please call patient. Patient did not want to share details. documented in this encounter Plan of Treatment Not on file documented as of this encounter Visit Diagnoses Not on filedocumented in this encounter Care Teams Chalk Extruding Machine Operator Relationship Specialty Start Date End Date Cristian Ling MD [address] [place] [address] PCP - General 10/16/16 documented as of this encounter
--- OUTSIDE RECORDS SUMMARY | 2024-06-12 03:58 | XMS_ITS | Encounter Summary ---
Author Organization [facility] Address [address] [place] [address] Phone Care Team Providers Care Safety Pin Assembling Machine Operator Name Role Phone Cristian Ling MD Primary Care Prov ider Reason for Visit * Reason Onset Date Comments Transfer to [facility] 02/12/2023 Encounter Details Date Type Department Care Team (Late st Contact Info) Description 02/12/2023 Telephone [facility] Cardiology [address] [facility] 8th [place] [address] [place] [address] Sami Stafford MD [address] [facility] [address] [place], [place] [id number] Transfer to [facility] from [facility] Social History Tobacco Use Types Packs/Day Years [...] on file 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 * Telephone Encounter - Sami Stafford MD - 02/13/2023 5:34 PM CDT Spoke with her. She is dealing with sig. Pain related to her recently broken right wrist. We discussed how uncontrolled pain may also be contributing to her afib. Rec'd she discuss pain management with the team there. Awaiting bed availability. * Telephone Encounter - Sheila Solomon RN - 02/12/2023 2:35 PM CDT Spoke with pt's son who said pt is now admitted at [place] waiting for a bed at [facility]. He asked if DR. Stafford could help speed up the transfer process. I told him we unfortunately have no control over the bed availability but that I would keep him updated. He was appreciative. * Telephone Encounter - Viki Faith - 02/12/2023 2:14 PM CDT PT REQ CALL BACK REGARDING BEING ADMITTED, PLS CALL documented in this encounter Plan of Treatment Not on file documented as of this encounter Visit Diagnoses Not on filedocumented in this encounter Care Teams Safety Pin Assembling Machine Operator Relationship Specialty Start Date End Date Cristian Ling MD [address] [place] [address] PCP - General 10/16/16 documented as of this encounter
--- OUTSIDE RECORDS SUMMARY | 2024-06-12 03:58 | XMS_ITS | Encounter Summary ---
Author Organization [facility] Address [address] [place] [address] Phone Care Team Providers Care Deicer Repairer Electric Name Role Phone Cristian Ling MD Primary Care Prov ider Reason for Visit * Reason Onset Date Comments update on VS and weight 01/14/2023 Encounter Details Date Type Department Care Team (Late st Contact Info) Description 01/14/2023 Telephone [facility] Cardiology [address] [facility] Advanced Medicine 8th [place] [address] [place] [address] Sami Stafford MD [address] [facility] [address] [place], [place] [id number] update on VS and weight Social History Tobacco Use Types Packs/Day Years [...] on file 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 * Telephone Encounter - Suki Doe RN - 01/22/2023 4:32 PM CDT D/w pt. She reports leg swelling much better, appetite the same- poor, she is still sleeping on 2 pillows, sob same. She has not been monitoring weights. Today vs: 102/60.54 Confirmed Lasix 40 mg BID She will reduce dosing of metoprolol to 25 mg daily. We will call back Friday for update. She will monitor ad records VS including weights * Telephone Encounter - Sami Stafford MD - 01/22/2023 4:31 PM CDT Please inquire as to leg swelling, orthopnea, appetite, shortness of breath, weight. Confirm current diuretic dosing. May reduce metoprolol xl to 25 mg daily. * Telephone Encounter - Suki Doe RN - 01/21/2023 10:32 AM CDT CV 01/20/23 IMPRESSION: Successful DC cardioversion to sinus rhythm. S/w pt. She states she feels no better or worse since CV. She still has no energy and is lightheaded. VS today: 100/52.56 * Telephone Encounter - Clara Brasher - 01/21/2023 10:06 AM CDT YULIA PT STATES HAS BEEN HAVING LIGHTHEADEDNESS SINCE PROCEDURE DONE YESTERDAY * Telephone Encounter - Sheila Solomon RN - 01/17/2023 7:46 AM CDT See enc 01/13 * Telephone Encounter - Yara Espinosa - 01/16/2023 3:16 PM CDT Pt calling to speak with a nurse in regards to her upcoming procedure on Friday. * Telephone Encounter - Sheila Solomon RN - 01/14/2023 2:56 PM CDT See enc 01/13/23 * Telephone Encounter - Sonia Gutierrez - 01/14/2023 2:47 PM CDT Yulia Patient would like a return call to discuss some questions she has regarding upcoming procedure. She can be reached at [phone]. documented in this encounter Plan of Treatment Not on file documented as of this encounter Visit Diagnoses Diagnosis Paroxysmal atrial fibrillation with RVR (HCC) documented in this encounter Discontinued Medications Medication Sig Discontinue Reason Start Date End Da te metoprolol XL (TOPROL-XL) 50 mg extended release tabletIndications:Paroxys mal atrial fibrillation with RVR (HCC) Take 1 tablet (50 mg total) by mouth daily Reorder 01/13/2023 01/22/2023 documented as of this encounter Care Teams Deicer Repairer Electric Relationship Specialty Start Date End Date Cristian Ling MD [address] [place] [address] PCP - General 10/16/16 documented as of this encounter
--- OUTSIDE RECORDS SUMMARY | 2024-06-12 03:58 | XMS_ITS | Encounter Summary ---
Author Organization [facility] Healthcare Address [address] [place] [address] Care Team Providers Care Film Washer Name Role Phone Cristian Ling MD Primary Care Prov ider Encounter Details Date Type Department Care Team (Latest Contact Info) Description 10/18/2022 12:44 PM CDT - 10/18/2022 11:59 PM CDT Hospital Encounter 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 09/21/2012 03/21/2023 [...] 1 CAPSULE TWICE DAILY NEEDED. 09/21/2012 03/21/2023 Eliquis 5 mg tablet TAKE 1 TABLET BY MOUTH TWICE DAILY 60 tablet 09/17/2022 10/23/2022 furosemide (LASIX) 20 mg tablet Take 1 [...] TABLET BY MOUTH ONCE DAILY 30 tablet 10/14/2022 11/14/2022 multivitamin no.44-vit D3-K 1,000-800 unit-mcg capsule daily. [...] Procedure Name Priority Date/Time Associated Diagnosis Comments IMMUNOGLOBULIN FREE LIGHT CHAINS Routine 10/18/2022 11:36 AM CDT Anemia, unspecified type EGFR Routine 10/18/2022 11:28 AM CDT Anemia, unspecified type DIFFERENTIAL AUTO Routine 10/18/2022 11: 28 AM CDT Anemia, unspecified type IRON PROFILE W/ IBC Routine 10/18/2022 1 1:28 AM CDT Anemia, unspecified type CBC WITH AUTO DIFFERENTIAL Routine 10/18/2022 11:28 AM CDT Anemia, unspecified type ERYTHROPOIETIN Routine 10/18/2022 11:28 AM CDT Anemia, unspecified type METHYLMALONIC ACID, SERUM Routine 10/18/2022 11:28 AM CDT Anemia, unspecified type RETICULOCYTES Routine 10/18/2022 11:28 AM CDT Anemia, unspecified type PROTEIN ELECTROPHORESIS, WITH REFLEX, SERUM Routine 10/18/2022 11:28 AM CDT Anemia, unspecified type LACTATE DEHYDROGENASE Routine 10/18/2022 11:28 AM CDT Anemia, unspecified type HAPTOGLOBIN Routine 10/18/2022 11:28 AM CDT Anemia, unspecified type IGA Routine 10/18/2022 11:28 AM CDT Anemia, unspecified type IGM Routine 10/18/2022 11:28 AM CDT Anemia, unspecified type IGG Routine 10/18/2022 11:28 AM CDT Anemia, unspecified type FOLATE Routine 10/18/2022 11:28 AM CDT Anemia, unspecified type FERRITIN Routine 10/18/2022 11:28 AM CDT Anemia, unspecified type VITAMIN B12 Routine 10/18/2022 11:28 AM CDT Anemia, unspecified type BETA 2 MICROGLOBULIN SERUM Routine 10/18/2022 11:28 AM CDT Anemia, unspecified type COMPREHENSIVE METABOLIC PANEL Routine 10/18/2022 11:28 AM CDT Anemia, unspecified type documented in this encounter Results * (ABNORMAL) Immunoglobulin free light chains (10/18/2022 11:36 AM CDT) Pathologist [facility] Hunt/Lambda ratio 1.69(H) 0.26 - 1.65 [facility] Hunt free light chain 3.53(H) 0.33 - 1.94 mg/dL [facility] Comment: Interpretive Data The Kana Ig Hunt FLC assay procedure was used. Results from different manufacturers or methods may not be comparable. Serial testing should be performed using the same method. Lambda free light chain 2.09 0.57 - 2.63 mg/dL [facility] Comment: Interpretive Data The Kana Ig Lambda FLC assay procedure was used. Results from different manufacturers or methods may not be comparable. Serial testing should be performed using the same method. Blood 10/18/2022 11:3 6 AM CDT 10/18/2022 11:55 AM CDT Katja Linares MD LAB BLOOD ORDERABLES Caitlyn l Result Performing Organization Address City/State/[facility] Co de Phone Number [facility] Department [place] [address] * (ABNORMAL) eGFR (10/18/2022 11:28 AM CDT) eGFR 49(L) 90 - 130 mL/min/1. 73 m2 [facility] Comment: Interpretive Data Reference Interval Normal ?>/= [...] was last reviewed 2021. Testing performed by: [facility], [address] [place] [phone] Blood 10/18/2022 11:2 8 AM CDT 10/18/2022 11:38 AM CDT Katja Linares MD LAB BLOOD ORDERABLES Caitlyn l Result [facility] Department [place] [address] * Differential, auto (10/18/2022 11:28 AM CDT) Neutrophil abs 2.8 1.8 - 6.6 K/cumm [facility] Comment:Testing performed by : [facility], [address] [place] [phone] Lymphocyte abs 1.4 1.2 - 3.3 K/cumm [facility] Comment:Testing performed by : [facility], [address] [place] [phone] Monocyte abs 0.4 0.2 - 1.2 K/cumm [facility] Comment:Testing performed by : [facility], [address] [place] [phone] Eosinophil abs 0.3 0.0 - 0.5 K/cumm [facility] Comment:Testing performed by : [facility], [address] [place] [phone] Basophil abs 0.1 0.0 - 0.2 K/cumm [facility] Comment:Testing performed by : [facility], [address] [place] [phone] Neutrophil pct 56.2 % [facility] Comment: Interpretive Data Percent cell count reference ranges are not reported, since discordance with absolute values may lead to misinterpretation of CBC data. Current Interpretive Data was last revised on 2017. Testing performed by: [facility], [address] [place] [phone] Lymphocyte pct 28.6 % [facility] Comment: Interpretive Data Percent cell count reference ranges are not reported, since discordance with absolute values may lead to misinterpretation of CBC data. Current Interpretive Data was last revised on 2017. Testing performed by: [facility], [address] [place] [phone] Monocyte pct 8.6 % [facility] Comment:Testing performed by : [facility], [address] [place] [phone] Eosinophil pct 5.5 % [facility] Comment:Testing performed by : [facility], [address] [place] [phone] Basophil pct 1.1 % [facility] Comment:Testing performed by : [facility], [address] [place] [phone] Blood 10/18/2022 11:2 8 AM CDT 10/18/2022 11:38 AM CDT Katja Linares MD LAB BLOOD ORDERABLES Caitlyn dominguez Result [facility] Department [place] [address] * (ABNORMAL) CBC with auto differential (10/18/2022 11:28 AM CDT) WBC 4.9 3.8 - 9.8 K/cumm [facility] Comment:Testing performed by : [facility], [address] [place] [phone] Hgb 10.1(L) 12.1 - 15.1 g/dL [facility] Comment:Testing performed by : [address] [phone] Hct 29.9(L) 36.1 - 44.3 % [facility] Comment:Testing performed by : [address] [phone] Plt 186 140 - 440 K/cumm [facility] Comment:Testing performed by : [facility], [address] [place] [phone] MPV 9.6 6.8 - 10.4 fL [facility] Comment:Testing performed by : [address] [phone] RBC 3.29(L) 3.90 - 5.00 M/cumm [facility] Comment:Testing performed by : [address] [phone] MCV 91.0 80.0 - 97.6 fL [facility] Comment:Testing performed by : [facility], [address] [place] [phone] MCH 30.9 26.7 - 33.7 pg [facility] Comment:Testing performed by : [facility], [address] [place] [phone] MCHC 33.9 32.7 - 35.5 g/dL [facility] Comment:Testing performed by : [facility], [address] [place] [phone] RDW CV 13.3 11.8 - 14.6 % [facility] Comment:Testing performed by : [facility], [address] [place] [phone] NRBC abs 0.00 0.00 - 0.01 K/cumm [facility] Comment:Testing performed by : [facility], [address] [place] [phone] Blood 10/18/2022 11:2 8 AM CDT 10/18/2022 11:38 AM CDT Katja Linares MD LAB BLOOD ORDERABLES Caitlyn l Result [facility] Department [place] [address] * (ABNORMAL) Comprehensive metabolic panel (10/18/2022 11:28 AM CDT) Sodium 140 135 - 145 mmol/L [facility] Comment:Testing performed by : [facility], [address] [place] [phone] Potassium, pl 4.5 3.3 - 4.9 mmol/L [facility] Comment:Testing performed by : [address] [phone] Chloride 105 97 - 110 mmol/L [facility] Comment:Testing performed by : [facility], [address] [place] [phone] CO2 29 22 - 32 mmol/L [facility] Comment:Testing performed by : [facility], [address] [place] [phone] Anion gap 6 2 - 15 mmol/L [facility] Comment:Testing performed by : [facility], [address] [place] [phone] BUN 21 8 - 25 mg/dL [facility] Comment:Testing performed by : [facility], [address] [place] [phone] Creatinine 1.15(H) 0.60 - 1.10 mg/dL [facility] Comment:Testing performed by : [facility], [address] [place] [phone] Glucose 83 70 - 199 mg/dL [facility] Comment: [...] was last revised 2022. Testing performed by: [facility], [address] [place] [phone] Calcium 10.0 8.5 - 10.3 mg/dL [facility] Comment:Testing performed by : [address] [phone] Bilirubin, total 0.4 0.1 - 1.2 mg/dL [facility] Comment:Testing performed by : [address] [phone] Protein, pl 6.9 6.5 - 8.5 g/dL [facility] Comment:Testing performed by : [address] [phone] Albumin 4.1 3.5 - 5.0 g/dL [facility] Comment:Testing performed by : [address] [phone] Alk phos 81 40 - 130 Units/L [facility] Comment:Testing performed by : [facility], [address] [place] [phone] ALT 15 7 - 45 Units/L [facility] Comment:Testing performed by : [facility], [address] [place] [phone] AST 18 10 - 45 Units/L [facility] Comment:Testing performed by : [facility], [address] [place] [phone] Blood 10/18/2022 11:2 8 AM CDT 10/18/2022 11:38 AM CDT Narrative [facility] - 10/18/2022 11:57 AM CDT Has the patient fasted?->No Katja Linares MD LAB BLOOD ORDERABLES Caitlyn l Result Performing Organization Address [facility] Co de Phone Number [facility] Department [place] [address] * Lactate dehydrogenase (LD) (10/18/2022 11:28 AM CDT) Pathologist [facility] Lactate dehydrogenase (LDH) 178 100 - 250 Units/L [facility] Comment:Testing performed by : [facility], [address] [place] [phone] Blood 10/18/2022 11:2 8 AM CDT 10/18/2022 11:38 AM CDT Katja Linares MD LAB BLOOD ORDERABLES Caitlyn l Result Performing Organization Address [facility] de Phone Number [facility] Department [place] [address] * Reticulocyte Count (10/18/2022 11:28 AM CDT) Retics, absolute 0.028 0.020 - 0.087 M/cumm [facility] Comment:Testing performed by : [facility], [address] [place] [phone] Retics 0.85 0.50 - 1.80 % [facility] Comment:Testing performed by : [facility], [address] [facility] [phone] Blood 10/18/2022 11:2 8 AM CDT 10/18/2022 11:38 AM CDT Katja Linares MD LAB BLOOD ORDERABLES Caitlyn l Result [facility] [place] [address] * Haptoglobin (10/18/2022 11:28 AM CDT) Haptoglobin 165.0 30.0 - 200.0 mg/dL [facility] Blood 10/18/2022 11:2 8 AM CDT 10/18/2022 11:55 AM CDT Katja Linares MD LAB BLOOD ORDERABLES Caitlyn l Result Performing Organization Address [facility] [place] [address] * Iron profile w/ IBC (10/18/2022 11:28 AM CDT) Iron 59 35 - 145 mcg/dL [facility] TIBC 288 250 - 400 mcg/dL [facility] Transferrin saturation 20 20 - 50 % [facility] Blood 10/18/2022 11:2 8 AM CDT 10/18/2022 11:55 AM CDT Katja Linares MD LAB BLOOD ORDERABLES Caitlyn l Result Performing Organization Address City/[facility]/[place] [address] * Ferritin (10/18/2022 11:28 AM CDT) Ferritin 48 13 - 150 ng/mL [facility] Blood 10/18/2022 11:2 8 AM CDT 10/18/2022 11:55 AM CDT Katja Linares MD LAB BLOOD ORDERABLES Caitlyn l Result Performing Organization Address [facility] Co de Phone Number [facility] [place] [address] * Folate (10/18/2022 11:28 AM CDT) Folic acid 15.5 >=5.0 ng/mL [facility] Blood 10/18/2022 11:2 8 AM CDT 10/18/2022 11:55 AM CDT Katja Linares MD LAB BLOOD ORDERABLES Caitlyn l Result Performing Organization Address [facility] de Phone Number [facility] Department of [employer] [place] [address] * (ABNORMAL) Vitamin B12 (10/18/2022 11:28 AM CDT) Vitamin B12 1,302(H) 230 - 1,250 pg/mL [facility] Blood 10/18/2022 11:2 8 AM CDT 10/18/2022 11:55 AM CDT Katja Linares MD LAB BLOOD ORDERABLES Caitlyn l Result Performing Organization Address [facility] Co de Phone Number [facility] [employer] [address] * Methylmalonic acid, serum (10/18/2022 11:28 AM CDT) MMA 0.28 <=0.40 nmol/mL [facility] Comment: ADDITIONAL INFORMATION This test was developed and its performance characteristics determined by [facility] in a manner consistent with CLIA requirements. This test has not been cleared or approved by the U.S. Food and Drug Administration. Test Performed by: [facility] [address] [place] [address] Registrar Nurses' Registry: Leno Nougeira M.D. Ph.D.; CLIA# [id number] Blood 10/18/2022 11:2 8 AM CDT 10/18/2022 12:11 PM CDT Katja Linares MD LAB BLOOD ORDERABLES Caitlyn l Result Performing Organization Address [facility] Co de Phone Number [facility] Department [employer] [place] [place] [address] * (ABNORMAL) Erythropoietin (10/18/2022 11:28 AM CDT) [facility] Erythropoietin 20.7(H) 2.6 - 18.5 mIUnits/m L [facility] Comment: Test Performed by: [facility] [address] [place] [address] Registrar Nurses' Registry: Leno Nogueira M.D. Ph.D.; CLIA# [id number] Blood 10/18/2022 11:2 8 AM CDT 10/18/2022 12:11 PM CDT Katja Linares MD LAB BLOOD ORDERABLES Caitlyn l Result Performing Organization Address [facility] [place] [address] * Protein electrophoresis with reflex, serum (10/18/2022 11:28 AM CDT) [facility] Protein, sr 6.5 6.2 - 8.2 g/dL [facility] Albumin 3.9 3.2 - 5.0 g/dL [facility] Alpha-1 globulin 0.3 0.2 - 0.4 g/dL [facility] Alpha-2 globulin 0.8 0.5 - 1.0 g/dL [facility] Beta-1 globulin 0.4 0.3 - 0.6 g/dL [facility] Beta-2 globulin 0.3 0.2 - 0.6 g/dL [facility] Gamma globulin 0.7 0.5 - 1.7 g/dL [facility] SPEP interp Please see comment [facility] Comment: No apparent monoclonal peak Reviewed and signed by Aguila Redding MD, PhD 10/21/2022 Blood 10/18/2022 11:2 8 AM CDT 10/18/2022 11:53 AM CDT Katja Linares MD LAB BLOOD ORDERABLES Caitlyn l Result Performing Organization Address City/[facility]/ZIP Co de Phone Number [facility] Department [place] [address] * IgG (10/18/2022 11:28 AM CDT) Immunoglobulin G 771.0 700.0 - 1,600.0 mg/dL [facility] Blood 10/18/2022 11:2 8 AM CDT 10/18/2022 11:55 AM CDT Katja Linares MD LAB BLOOD ORDERABLES Caitlyn l Result [facility] Department [place] [address] * IgM (10/18/2022 11:28 AM CDT) Immunoglobulin M 101.0 40.0 - 230.0 mg/dL [facility] Blood 10/18/2022 11:2 8 AM CDT 10/18/2022 11:55 AM CDT Katja Linares MD LAB BLOOD ORDERABLES Caitlyn l Result Performing Organization Address [facility] [place] [address] * IgA (10/18/2022 11:28 AM CDT) Immunoglobulin A 212.0 70.0 - 400.0 mg/dL [facility] Blood 10/18/2022 11:2 8 AM CDT 10/18/2022 11:55 AM CDT Katja Linares MD LAB BLOOD ORDERABLES Caitlyn l Result Performing Organization Address [facility] [place] [address] * (ABNORMAL) Beta 2 microglobulin, serum (10/18/2022 11:28 AM CDT) Pathologist [facility] Beta 2 Microglobulin, Serum 4.00(H) 1.00 - 2.50 mg/L [facility] Comment: Interpretive Data The Kana Beta-2 microglobulin assay procedure was used. Results from different manufacturers or methods may not be comparable. Serial testing should be performed using the same method. Blood 10/18/2022 11:2 8 AM CDT 10/18/2022 11:55 AM CDT Katja Linares MD LAB BLOOD ORDERABLES Caitlyn l Result Performing Organization Address [facility] [place] [address] documented in this encounter Visit Diagnoses Diagnosis Anemia, unspecified type documented in this encounter Care Teams Film Washer Relationship Specialty Start Date End Date Cristian Ling MD [address] [place] [address] PCP - General 10/16/16 documented as of this encounter
--- OUTSIDE RECORDS SUMMARY | 2024-06-12 03:58 | XMS_ITS | Encounter Summary ---
Author Organization [facility] Address [address] [place] [address] Phone Care Team Providers Care Mattress Specialist Name Role Phone Cristian Ling MD Primary Care Prov ider Encounter Details Date Type Department Care Team (Late st Contact Info) Description 12/30/2022 Telephone [facility] Cardiology [address] [facility] [address] [facility] 8th [place] [address] [place] [address] Sami Stafford MD [address] [facility] [address] [place], [place] [id number] Social History Tobacco Use Types Packs/Day Years [...] on file 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 * Telephone Encounter - Viki Faith - 01/10/2023 12:02 PM CDT Only @ 3:00 * Addendum Note - Sheila Pacheco RN - 01/10/2023 11:56 AM CDTAddended by: SHEILA PACHECO on: 01/10/2023 11:56 AM Modules accepted: Orders * Telephone Encounter - Sheila Pacheco RN - 01/10/2023 11:55 AM CDT Spoke with pt and instructed her to increase furosmide to 20mg BID through the weekend. I told her we will plan on having labs drawn [facility] and also may try to obtain an echo (currently no slots available, but will see if one becomes available). Pt verbalized understanding. * Telephone Encounter - Sheila Pacheco RN - 01/10/2023 11:[address] Stafford, have pt double furosemide over the weekend, prior to appt on 01/13/23. * Telephone Encounter - Viki Faith - 01/10/2023 10:49 AM CDT SCHEDULED * Telephone Encounter - Sheila Pacheco RN - 01/10/2023 10:29 AM CDT Spoke with pt to get an update on symptoms, BP, weights. BP readings 01/08 142/80 AM 114/60 PM 190lbs 01/09 106/76 PM 188lbs 01/10 190lbs Reports symptoms are about the same- minimal improvement in swelling, MCDANIELS. Reports urine output is ok, but does not feel it is as much as it should be in response to the furosemide. She is going to come for an appt on Saturday 01/13 at 10:30 AM (open slot). If her daughter is unable to bring her, she will call back to cancel. * Telephone Encounter - Sheila Pacheco RN - 01/08/2023 9:48 AM CDT Noted- will await repeat lab results. Follow-up with pt Friday02/10/23 for symptom update, weight update, blood pressure, UOP. * Result Encounter Note - Sami Stafford MD - 01/08/2023 9:42 AM CDT Cr elevated though BUN is stable. She notes persistent LE edema and SOB, though these have improved since starting furosemide. She does not feel she is at her baseline yet. She has noted an increase in UOP with furosemide 20 mg daily, though not very much so. No change/increase in LH episodes on furosemide. Will plan on continuing furosemide at current dosing for now with repeat BMP 01/09 or 01/10 along with symptom, weight, UOP, and bp update by 01/10/23. Her son, who provides transportation to clinic visits, is currently on vacation, so she would not be able to come to clinic next Friday for in-person assessment. * Addendum Note - Sheila Pacheco RN - 01/08/2023 9:39 AM CDTAddended by: SHEILA PACHECO on: 01/08/2023 09:39 AM Modules accepted: Orders * Telephone Encounter - Sheila Pacheco RN - 01/07/2023 12:27 PM CDT Noted. Await lab results for other recommendations. * Telephone Encounter - Sami Stafford MD - 01/07/2023 12:17 PM CDT Await bmp. Her weight at November visit was 173 lbs, so she may still be retaining extra fluid. Given current apixaban use, lower likelihood of DVT. Will reconsider DVT eval if LE edema persists despite continued diuresis. Favor continuing furosemide for now depending on her bmp from today. * Telephone Encounter - Sheila Pacheco RN - 01/07/2023 11:18 AM CDT Spoke with pt to remind her of labs/get an update. She just left the lab. Reports left leg is still swollen, right leg is going down. Last week she had denied any redness, heat, or pain in BLE, did endorse cramps in BLE. Today she reports that both her legs intermittently feel warm but then it goes away. She said that the swelling in both legs improves with elevation. Weight this AM was 182.0lbs (?she thinks. Is away from her log right now). Says her SOB is improved from last Friday when we spoke, but not completely back to baseline. Overall, feels like she has kindof improved since last week and addition of furosemide. I told her I would ask Dr. Stafford for additional recommendations given hx a-fib, possible DVT, LE doppler vs ED eval? Pt verbalized understanding and will await recs. * Addendum Note - Sheila Pacheco RN - 01/03/2023 11:03 AM CDTAddended by: SHEILA PACHECO on: 01/03/2023 11:03 AM Modules accepted: Orders * Telephone Encounter - Sheila Pacheco RN - 01/03/2023 10:57 AM CDT Spoke with pt to get an update. She has been taking lasix 20mg daily since Sunday 12/31 195.8lbs 01/01 195.8lbs 01/02 192.0lbs 01/03 190.0lbs Reports BLE swelling is slowly improving. Right leg better than left leg. Denies that either leg ispainful, red, or hot to the touch. Endorses chronic intermittent cramps in BLE. She is going to continue the lasix through the weekend. She is going to have repeat BMP on Friday or Friday (whenever she is able to have transportation). I told her we will be in touch after receiving her lab results but to call sooner if any concerns. Pt verbalized understanding. * Telephone Encounter - Sheila Pacheco RN - 12/30/2022 11:59 AM CDT Spoke with pt who reports BLE edema x1 week. She has gained 10lbs in 1 month. Intermittent SOB. She has PRN furosemide in her med list but has not taken it. I instructed her to take furosemide 20mg daily and monitor daily weights. Plan to touch base Friday for an update on her symptoms. I told her that I would relay to Dr. Stafford for any additional recs. If she needs lab work, would like it sent to [facility]. * Telephone Encounter - Yara Espinosa - 12/30/2022 9:12 AM CDT Rivera Pt calling to speak with a nurse in regards to now both of her legs being swollen. documented in this encounter Plan of Treatment Not on file documented as of this encounter Procedures Procedure Name Priority Date/Time Associated Diagnosis Comments BASIC METABOLIC PANEL Routine 01/09/2023 9:09 AM CDT Medication course changed Localized edema BASIC METABOLIC PANEL Routine 01/07/2023 11:06 AM CDT Medication course changed Localized edema documented in this encounter Results * (ABNORMAL) Basic metabolic panel (01/09/2023 9:09 AM CDT) Glucose 90 65 - 99 mg/dL [facility] Comment: ? Fasting reference interval BUN 34(H) 7 - 25 mg/dL [facility] Creatinine 1.74(H) 0.60 - 1.00 mg/dL [facility] eGFR 30(L) > OR = 60 mL/min/1.7 3m2 [facility] Comment: The eGFR is based on the CKD-EPI 2020 equation. To calculate the new eGFR from a previous Creatinine or Cystatin C result, go to https://www.kidney.org/professionals/ kdoqi/gfr%5Fcalculator BUN/creat ratio 20 6 - 22 (calc) [facility] Sodium 140 135 - 146 mmol/L [facility] Potassium, pl 4.4 3.5 - 5.3 mmol/L [facility] Chloride 102 98 - 110 mmol/L [facility] CO2 30 20 - 32 mmol/L [facility] Calcium 9.6 8.6 - 10.4 mg/dL [facility] Blood 01/09/2023 9:09 AM CDT 01/09/2023 9:15 AM CDT us Sami Stafford MD LAB BLOOD ORDERABLES Final Re sult [facility] [address] [facility] [place] [address] * (ABNORMAL) Basic metabolic panel (01/07/2023 11:06 AM CDT) Glucose 129(H) 65 - 99 mg/dL [facility] Comment: ? Fasting reference interval For someone without known diabetes, a glucose value >125 mg/dL indicates that they may have diabetes and this should be confirmed with a follow-up test. BUN 22 7 - 25 mg/dL [facility] Creatinine 1.62(H) 0.60 - 1.00 mg/dL [facility] eGFR 33(L) > OR = 60 mL/min/1.7 3m2 [facility] Comment: The eGFR is based on the CKD-EPI 2020 equation. To calculate the new eGFR from a previous Creatinine or Cystatin C result, go to https://www.kidney.org/professionals/ kdoqi/gfr%5Fcalculator BUN/creat ratio 14 6 - 22 (calc) [facility] Sodium 140 135 - 146 mmol/L [facility] Potassium, pl 4.3 3.5 - 5.3 mmol/L [facility] Chloride 103 98 - 110 mmol/L [facility] CO2 28 20 - 32 mmol/L [facility] Calcium 9.3 8.6 - 10.4 mg/dL [facility] Blood 01/07/2023 11:0 6 AM CDT 01/07/2023 11:07 AM CDT us Sami Stafford MD LAB BLOOD ORDERABLES Final Re sult [facility] [address] [place] [address] documented in this encounter Visit Diagnoses Diagnosis Medication course changed- Primary Localized edema Edema Hypertrophic cardiomyopathy (CMS/HCC) (HCC) Other primary cardiomyopathies documented in this encounter Discontinued Medications Medication Sig Discontinue Reason Start Date End Da te furosemide (LASIX) 20 mg tablet Take 1 tablet (20 mg total) by mouth daily as needed (leg swelling) Reorder 12/07/2021 12/30/2022 documented as of this encounter Care Teams Mattress Specialist Relationship Specialty Start Date End Date Cristian Ling MD [address] [place] [id number] PCP - General 10/16/16 documented as of this encounter
--- OUTSIDE RECORDS SUMMARY | 2024-06-12 03:58 | XMS_ITS | Encounter Summary ---
Author Organization [facility] Address [address] [place] [address] Care Team Providers Care General Lithographic Worker Name Role Phone Cristian Ling MD Primary Care Prov ider Encounter Details Date Type Department Care Team (Late st Contact Info) Description 02/05/2023 Orders Only [facility] Cardiology [address] [place] [id number] Reddy Monahan MD [address] [facility] [address] [place] [address] Social History Tobacco Use Types Packs/Day Years [...] on file 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 Gender Identity Female 02/07/2021 4:33 PM CDT Sexual Orientation Straight 02/07/2021 4: 33 PM CDT documented as of this encounter Plan of Treatment Not on file documented as of this encounter Procedures Procedure Name Priority Date/Time Associated Diagnosis Comments CARDIOLOGY DOCUMENT SCAN Routine 02/04/2023 9:08 AM CDT CARDIOLOGY DOCUMENT SCAN Routine 02/02/2023 8:45 AM CDT documented in this encounter Results * Cardiology Document Scan (02/04/2023 9:08 AM CDT) Anatomical Region Laterality Modality Other us Evonne Crystal NP [facility] CARDIAC SERVICES PROCEDUR ES Final Result * Cardiology Document Scan (02/02/2023 8:45 AM CDT) Anatomical Region Laterality Modality Other us Reddy Monahan MD CV CARDIAC SERVICES PROC EDURES Final Result documented in this encounter Visit Diagnoses Not on filedocumented in this encounter Care Teams General Lithographic Worker Relationship Specialty Start Date End Date Cristian Ling MD [address] [place] [address] PCP - General 10/16/16 documented as of this encounter
--- OUTSIDE RECORDS SUMMARY | 2024-06-12 03:58 | XMS_ITS | Encounter Summary ---
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 LER TIER * Telephone Encounter - Jamari Rodríguez MD - 08/05/2022 6:07 AM HEDDLER TIER OK to schedule repeat injection a minimum of 3 months from previous injection in May. LER TIER * Telephone Encounter - Catherine Campbell CPhT - 08/02/2022 10:58 AM HEDDLER TIER Pt requesting a [place] GUIDED INJ HIP RT LER TIER documented in this encounter Plan of Treatment Not on file documented as of this encounter Visit Diagnoses Not on filedocumented in this encounter Care Teams Real Estate Loan Officer Relationship Specialty Start Date End Date Cristian Ling MD [address] [place] [address] PCP - General 10/16/16 documented as of this encounter
--- OUTSIDE RECORDS SUMMARY | 2024-06-12 03:58 | XMS_ITS | Encounter Summary ---
Author Organization [facility] Address [address] [place] [address] Phone Care Team Providers Care Industrial Psychology Teacher Name Role Phone Cristian Ling MD Primary Care Prov ider Reason for Visit * Oncology (Routine) - Authorized Specialty Diagnoses / Procedures Referred By Contac t Referred To Contact Hematology Diagnoses Anemia, unspecified type Sami Stafford MD [address] [facility] [address] [place] [address] Phone: tel: fax: Katja Joe MD Phone: tel: fax: Referral ID Status Reason Start Date Expiration Date Visits Requested Visits Authorized [id number] Authorized Specialty Services Required 07/22/2022 09/29/2024 26 26 Encounter Details Date Type Department Care Team (Late st Contact Info) Description 10/18/2022 10:15 AM CDT Office Visit [facility] Hematology [address] 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 Gender Identity Female 02/07/2021 4:33 PM CDT Sexual Orientation Straight 02/07/2021 4: 33 PM CDT documented as of this encounter Last Filed Vital Signs Vital Sign Reading Time Taken Comments Blood Pressure 146/83 10/18/2022 10:27 AM CDT Pulse 70 10/18/2022 10:27 AM CDT Temperature 36.4 ??C (97.5 ??F) 10/18/2022 10:27 AM C DT Respiratory Rate 20 10/18/2022 10:27 AM CDT Oxygen Saturation 97% 10/18/2022 10:27 AM CDT Inhaled Oxygen Concentration - - Weight 84.6 kg (186 lb 8 oz) 10/18/2022 10:27 AM CDT Height - - Body Mass Index 33.04 09/28/2020 1:48 PM CDT documented in this encounter Progress Notes * Ricki Madsen MD - 10/18/2022 10:15 AM CDT Images from the original note were not included. Hematology Consult Note Visit date: @DATE@ Patient: Tiera Lobato ASSESSMENT AND PLAN 77 yo hx CAD s/p CABG 2012, prior osteoporosis, AF, HTN, arthritis, remote LE DVT who presents for evaluation of anemia. #Normocytic/Macrocytic Anemia: Has had mild anemia since at least 04/2022, though did have hb of 11.9 05/10/17. Most recent MCV 98, plts and WBC nl. Pertinent hx includes CKD3, afib on both aspirin and apixaban, CAD. Also with hx mild hypercalcemia and osteoporosis. Ddx anemia of chronic disease/CKD, nutritional (e.g. B12/folate), chronic bleed given AC; will consider monoclonal gammopathy with mild hypercalcemia. Other ddx a low grade MDS -b12, folate wnl today, cbc with diff, iron profile/ferritin wnl, reticulocyte count inappropriately low, epo pending -SPEP pending -will follow up lab results and have patient RTC in 3 mo Ricki Madsen MD PGY4 Hematology Oncology 10/19/22 11:20 AM Seen and staffed with Dr. Santana REASON FOR CONSULT: anemia REQUESTING PROVIDER: Sami Stafford MD HPI: 77 yo hx CAD s/p CABG 2012, prior osteoporosis, AF, HTN, arthritis, remote LE DVT who presents for evaluation of anemia. Remote hx of bowel perforation, s/p partial colectomy; she does not think had small bowel removed. She has no melena, bleeding. Past colonoscopy >10-15 years ago. No alcohol. She is on elliquis and aspirin. Hx osteoporosis, on alendronate. Reports stable fatigue that is not significantly worse over the last year. OSH labs 07/19/22: RC abs 0.07, % 2.28% IRF 17.2%, Retic Hb content 31.7 CMP with Cr 1.1, eGFR 48, nl LFTs, nl coags; Hb 10.5, MCV 98, WBC 5.0, Plts 189 06/0604/02/22 (during admit for NSTEMI): Hb 9.6, plts 172, WBC 6.2 04/2022: Hb 10.6 Hb 11.9 05/10/17 Listed in assisted living PAST MEDICAL HISTORY: Patient Active Problem List Diagnosis Date Noted Right hip pain 11/22/2021 Other osteoporosis without current pathological fracture 03/07/2021 Lumbar stenosis with neurogenic claudication 09/29/2020 History of [place] (myocardial infarction) 12/10/2017 Hypertension 11/06/2012 Chronic coronary artery disease 09/23/2012 Hx of CABG 09/23/2012 PAST SURGICAL HISTORY: CABG 2012 Hx cholecystectomy REVIEW OF SYSTEMS: Denies any cough, shortness of breath, fevers, or chills. Denies any headaches, dizziness, upper orlower extremity weakness, nausea, vomiting, diarrhea, constipation. All other review of systems negative except HPI. HOME MEDICATIONS: Prior to Admission medications Medication Sig Start Date End Date Taking? Authorizing Provider acetaminophen (TYLENOL) 325 mg tablet TAKE 1 TO 2 TABLETS EVERY 6 HOURS NEEDED. 09/21/12 Fidel Carranza MD alendronate (FOSAMAX) 70 mg tablet TAKE 1 TABLET BY MOUTH ONE TIME PER WEEK 11/09/18 Fidel Carranza MD aspirin 81 mg tablet daily. 09/21/12 Fidel Carranza MD atorvastatin (LIPITOR) 80 mg tablet TAKE 1 TABLET AT BEDTIME. 09/21/12 Fidel Cararnza MD calcium carbonate-vitamin D3 500 mg(1,250mg) -400 unit chewable tablet Take 1 tablet by mouth dailyProviFidel traore MD cannabidiol, CBD, (medical cannabis) each 1 Dose 3 (three) times a day as needed Tablets Fidel Carranza MD cholecalciferol (VITAMIN D-3) 1,000 [...] Reported on 05/01/2022 09/21/12 Fidel Carranza MD Eliquis 5 mg tablet TAKE 1 TABLET BY MOUTH TWICE DAILY 09/17/22 Sami Stafford MD ezetimibe (ZETIA) 10 mg tablet TAKE 1 TABLET BY MOUTH EVERY DAY 07/30/21 Sami Stafford MD furosemide (LASIX) 20 mg tablet Take 1 tablet (20 mg total) by mouth daily as needed (leg swelling)12/07/21 05/01/22 Sami Stafford MD gabapentin (NEURONTIN) 100 mg [...] TAKE 1 TABLET BY MOUTH ONCE DAILY 10/14/22 Sami Stafford MD multivitamin no.44-vit D3-K 1,000-800 unit-mcg capsule daily. ProviderFidel MD omeprazole (PriLOSEC) 20 mg capsule Take 1 capsule (20 mg total) by mouth daily Fidel Carranza MD sertraline (ZOLOFT) 100 mg tablet Take 0.5 tablets (50 mg total) by mouth daily 11/09/19 ProviderFidel MD ALLERGIES Allergies as of 10/18/2022 - Reviewed 10/18/2022 Allergen Reaction Noted Codeine Hives and Shortness of breath 01/15/2021 Latex Itching 11/06/2015 Tramadol Nausea & Vomiting and Unknown 12/10/2017 SOCIAL HISTORY Social History Tobacco Use Smoking status: Never Smokeless tobacco: Never Substance and Sexual Activity Drug use: Yes Types: Medical marijuana Comment: Tablets - tid Sexual activity: None Alcohol Use: Not on file FAMILY HISTORY Family History Problem Relation Age of Onset Prostate cancer Father Stroke Child Hypertension Child PHYSICAL EXAM: Vitals BP 146/83 (BP Location: Left arm) Pulse 70 Temp 36.4 ??C (97.5 ??F) (Transdermal) Resp 20 Wt 84.6 kg (186 lb 8 oz) SpO2 97% BMI 33.04 kg/m?? CONSTITUTIONAL: Alert, Normal Appearance, No Acute [...] CBC Lab Results Component Value Date WBC 4.9 10/18/2022 HGB 10.1 (L) 10/18/2022 HCT 29.9 (L) 10/18/2022 MCV 91.0 10/18/2022 MCH 30.9 10/18/2022 MCHC 33.9 10/18/2022 RDW 14.7 (H) 10/05/2012 LABPLAT 186 10/18/2022 MPV 9.6 10/18/2022 NEUTROABS 2.8 10/18/2022 LYMPHSABS 1.4 10/18/2022 MONOABS 0.4 10/18/2022 EOSABS 0.3 10/18/2022 BASOSABS 0.1 10/18/2022 NEUTOPHILPCT 56.2 10/18/2022 LYMPHOPCT 28.6 10/18/2022 MONOPCT 8.6 10/18/2022 EOSPCT 5.5 10/18/2022 BASOPCT 1.1 10/18/2022 CMP Chemistry Lab Results Component Value Date SODIUM 140 10/18/2022 POTASSIUM 4.5 10/18/2022 CHLORIDE 105 10/18/2022 CO2 29 10/18/2022 ANIONGAP 6 10/18/2022 BUNSER 21 10/18/2022 CREATININE 1.15 (H) 10/18/2022 GLUCOSE 83 10/18/2022 CALCIUM 10.0 10/18/2022 BILITOT 0.4 10/18/2022 PROTEIN 6.8 09/14/2012 ALBUMIN 4.1 10/18/2022 GFRNAA 49 (L) 10/18/2022 ALKPHOS 81 10/18/2022 AST 18 10/18/2022 ALT 15 10/18/2022 PHOS 2.5 09/15/2012 MAGNESIUM 3.1 (H) 09/15/2012 Ferritin Iron Profile Lab Results Component Value Date IRON 59 10/18/2022 TIBC 288 10/18/2022 TRANSFERSAT 20 10/18/2022 Immunoglobulin Free Light Chains Lab Results Component Value Date LIGHTCHAIN 1.69 (H) 10/18/2022 KAPPA 3.53 (H) 10/18/2022 LAMBDA 2.09 10/18/2022 Protein Electrophoresis Lab Results Component Value Date PROTSER 6.5 10/18/2022 IMAGES REVIEWED TODAY: Results for orders placed during the hospital encounter of 07/25/22 MRI Cardiac M&F WO Contrast Narrative EXAMINATION: MRI CARDIAC M/T/F WO CONTRAST HISTORY: Hypertrophic cardiomyopathy. TECHNIQUE: Multiplanar magnetic resonance imaging (MRI) of the heart with ultrafast spin echo and balanced steady state free precession sequences was performed without contrast, according to a custom protocol. This examination included dedicated phase contrast sequences and post processing for flow velocities. 3-D postprocessing was subsequently performed on a dedicated 3-D workstation. COMPARISON: CT dated 05/10/2017 FINDINGS: Patient is status post median sternotomy and coronary artery bypass grafting. Conventional cardiac anatomy. Mild left atrial enlargement. The right ventricle is normal in size, with normal systolic function. The left ventricle is also normal in size with marked thickening of the left ventricular apex measuring up to 1.7 cm suggestive of apical hypertrophic cardiomyopathy. The systolic function is normal with obliteration of the left ventricular apex in systole. No left ventricular outflow tract obstruction. No abnormal systolic anterior motion of the mitral valve leaflet. Qualitatively, there is mild mitral valve regurgitation and mild tricuspid valve regurgitation. There is no pulmonic regurgitation. The aortic valve morphology is normal with mild thickening of the valve leaflets.There is no aortic stenosis and no aortic regurgitation. [place] T1 mapping demonstrates mildly increased signal throughout the left ventricular apex. T2 mapping demonstrates normal signal throughout the left ventricular myocardium. Body surface area: 1.8 m2 Left ventricle: Ejection Fraction: 54% End diastolic volume: 155 mL (82 mL/m2, indexed) End systolic volume: 60 mL (32 mL/m2, indexed) Stroke volume: 80 mL (42 mL/m2, indexed) Cardiac output: 4.8 L/min Cardiac index: 2.7 L/min/m2 Right ventricle: Ejection Fraction: 57% End diastolic volume: 140 mL (74 mL/m2, indexed) End systolic volume: 60 mL Stroke volume: 80 mL (42 mL/m2, indexed) Cardiac output: 4.8 L/min Cardiac index: 2.6 L/min/m2 Flow Quantification: Aorta above valve (HR 62 bpm) Peak velocity: 1.8 m/sec Peak pressure gradient: 13 mmHg Fwd flow: 83 mL Rev flow: 1 mL Net flow: 82 mL Regurgitant fraction: 0% Subvalvular: Pressure gradient= 8 mmHg Peak velocity = 1.4 m/s Net flow=80 mL Pulmonary artery above valve (HR 61 bpm) Peak velocity: 0.9 m/sec Peak pressure gradient: 3 mmHg Fwd flow: 86 mL Rev flow: 0 mL Net flow: 86 mL Regurgitant fraction: 0% Impression 1. 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 No left ventricular outflow tract obstruction. 2. Normal left ventricular systolic function (LVEF = 54%). 3. Normal right ventricular size and function. Dictated by: Cathleen Castillo M.D. The radiology attending physician has personally reviewed this study, and had reviewed and/or edited this written report and agrees with it. Electronically signed by: Phil Lewis M.D. PATHOLOGY RESULTS: No results found for this or any previous visit. ASSESSMENT AND PLAN: Assessment and Plan is now at the top of the note. Cosigned by Katja Joe MD at 10/21/2022 2:04 PM CDT Associated attestation - Katja Joe MD - 10/21/2022 2:04 PM CDT I have seen and examined the patient. I agree with the findings and plan of care as documented in the resident/fellow's note. Discussed with Ms. Lobato that the results of the testing showed no presence of nutritional deficiencies with normal vitamin B12 folate as well as iron profile. SPEP shows no monoclona protein. Shedoes not have any evidence of hemolysis with normal LDH and haptoglobin. Her reticulocyte count is suppressed. Erythropoietin is mildly elevated at 20 and with her CKD stage 3, I suspect the most likely cause of her her mild normocytic anemia is anemia related to CKD versus less likely low-grade MDS. I discussed that since the rest of her blood counts are completely normal and she has mild anemiawith hemoglobin above 10, we can continue with expectant management. She will get labs drawn in November with her cardiology visit and will see us back in clinic in January for continued follow- up and evaluation. documented in this encounter Plan of Treatment Not on file documented as of this encounter Results * (ABNORMAL) CBC with auto differential (11/27/2022 1:20 PM CDT) WBC 5.1 3.8 - 9.9 K/cumm [facility] Hgb 10.0(L) 11.9 - 15.5 g/dL [facility] Hct 31.1(L) 35.6 - 45.5 % [facility] Plt 178 150 - 400 K/cumm [facility] MPV 12.0 9.1 - 12.3 fL [facility] RBC 3.30(L) 3.90 - 5.20 M/cumm [facility] MCV 94.2 81.3 - 96.4 fL [facility] MCH 30.3 27.1 - 33.3 pg [facility] MCHC 32.2(L) 32.3 - 35.7 g/dL [facility] RDW CV 13.2 11.1 - 14.9 % [facility] RDW SD 45.7 35.7 - 48.1 fL [facility] NRBC abs 0.00 0.00 - 0.01 K/cumm [facility] Blood 11/27/2022 1:20 PM CDT 11/27/2022 1:28 PM CDT us Katja Linares MD LAB BLOOD ORDERABLES Caitlyn dominguez Result [facility] Department [place] [address] * (ABNORMAL) Immunoglobulin free light chains (10/18/2022 11:36 AM CDT) Pathologist [facility] Titanic/Lambda ratio 1.69(H) 0.26 - 1.65 [facility] Titanic free light chain 3.53(H) 0.33 - 1.94 mg/dL [facility] Comment: Interpretive Data The Kana Ig Titanic FLC assay procedure was used. Results from different manufacturers or methods may not be comparable. Serial testing should be performed using the same method. Lambda free light chain 2.09 0.57 - 2.63 mg/dL [facility] Comment: Interpretive Data The Kana Ig Lambda FLC assay procedure was used. Results from different manufacturers or methods may not be comparable. Serial testing should be performed using the same method. Blood 10/18/2022 11:3 6 AM CDT 10/18/2022 11:55 AM CDT Katja Linares MD LAB BLOOD ORDERABLES Caitlyn l Result Performing Organization Address [facility] Co de Phone Number [facility] Department [place] [address] * (ABNORMAL) Beta 2 microglobulin, serum (10/18/2022 11:28 AM CDT) Beta 2 Microglobulin, Serum 4.00(H) 1.00 - 2.50 mg/L [facility] Comment: Interpretive Data The Kana Beta-2 microglobulin assay procedure was used. Results from different manufacturers or methods may not be comparable. Serial testing should be performed using the same method. Blood 10/18/2022 11:2 8 AM CDT 10/18/2022 11:55 AM CDT Katja Linares MD LAB BLOOD ORDERABLES Caitlyn l Result Performing Organization Address [facility] de Phone Number [facility] [place] [address] * IgA (10/18/2022 11:28 AM CDT) Immunoglobulin A 212.0 70.0 - 400.0 mg/dL [facility] Blood 10/18/2022 11:2 8 AM CDT 10/18/2022 11:55 AM CDT Katja Linares MD LAB BLOOD ORDERABLES Caitlyn l Result Performing Organization Address City/[facility] Co de Phone Number [facility] [place] [address] * IgM (10/18/2022 11:28 AM CDT) Immunoglobulin M 101.0 40.0 - 230.0 mg/dL [facility] Blood 10/18/2022 11:2 8 AM CDT 10/18/2022 11:55 AM CDT Katja Linares MD LAB BLOOD ORDERABLES Caitlyn l Result Performing Organization Address City/[facility]/ZIP Co de Phone Number [facility] Department [place] [address] * IgG (10/18/2022 11:28 AM CDT) [facility] Immunoglobulin G 771.0 700.0 - 1,600.0 mg/dL [facility] Blood 10/18/2022 11:2 8 AM CDT 10/18/2022 11:55 AM CDT Katja Linares MD LAB BLOOD ORDERABLES Caitlyn l Result Performing Organization Address City/[facility] Co de Phone Number [facility] [place] [address] * Protein electrophoresis with reflex, serum (10/18/2022 11:28 AM CDT) [facility] Protein, sr 6.5 6.2 - 8.2 g/dL [facility] Albumin 3.9 3.2 - 5.0 g/dL [facility] Alpha-1 globulin 0.3 0.2 - 0.4 g/dL [facility] Alpha-2 globulin 0.8 0.5 - 1.0 g/dL [facility] Beta-1 globulin 0.4 0.3 - 0.6 g/dL [facility] Beta-2 globulin 0.3 0.2 - 0.6 g/dL [facility] Gamma globulin 0.7 0.5 - 1.7 g/dL [facility] SPEP interp Please see comment [facility] Comment: No apparent monoclonal peak Reviewed and signed by Aguila Redding MD, PhD 10/21/2022 Blood 10/18/2022 11:2 8 AM CDT 10/18/2022 11:53 AM CDT Katja Linares MD LAB BLOOD ORDERABLES Caitlyn l Result Performing Organization Address [facility] [place] [address] * (ABNORMAL) Erythropoietin (10/18/2022 11:28 AM CDT) Pathologist [facility] Erythropoietin 20.7(H) 2.6 - 18.5 mIUnits/m L [facility] Comment: Test Performed by: [facility] [address] [place] [address] Community Service Organization Director: Leno Nogueira M.D. Ph.D.; CLIA# [id number] Blood 10/18/2022 11:2 8 AM CDT 10/18/2022 12:11 PM CDT Katja Linares MD LAB BLOOD ORDERABLES Caitlyn l Result Performing Organization Address [facility] [place] [address] * Methylmalonic acid, serum (10/18/2022 11:28 AM CDT) [facility] MMA 0.28 <=0.40 nmol/mL [facility] Comment: ADDITIONAL INFORMATION This test was developed and its performance characteristics determined by [facility] in a manner consistent with CLIA requirements. This test has not been cleared or approved by the U.S. Food and Drug Administration. Test Performed by: [facility] [address] [place] [address] Community Service Organization Director: Leno Nogueira M.D. Ph.D.; CLIA# [id number] Blood 10/18/2022 11:2 8 AM CDT 10/18/2022 12:11 PM CDT us Katja Linares MD LAB BLOOD ORDERABLES Caitlyn l Result Performing Organization Address City/[facility] Co de Phone Number [facility] [place] [address] * (ABNORMAL) Vitamin B12 (10/18/2022 11:28 AM CDT) Vitamin B12 1,302(H) 230 - 1,250 pg/mL [facility] Blood 10/18/2022 11:2 8 AM CDT 10/18/2022 11:55 AM CDT Katja Linares MD LAB BLOOD ORDERABLES Caitlyn l Result Performing Organization Address [facility] Co de Phone Number [facility] Department [place] [address] * Folate (10/18/2022 11:28 AM CDT) Folic acid 15.5 >=5.0 ng/mL [facility] Blood 10/18/2022 11:2 8 AM CDT 10/18/2022 11:55 AM CDT Katja Linares MD LAB BLOOD ORDERABLES Caitlyn l Result Performing Organization Address City/[facility] Co de Phone Number [facility] [place] [address] * Ferritin (10/18/2022 11:28 AM CDT) Ferritin 48 13 - 150 ng/mL [facility] Blood 10/18/2022 11:2 8 AM CDT 10/18/2022 11:55 AM CDT Katja Linares MD LAB BLOOD ORDERABLES Caitlyn l Result Performing Organization Address City/[facility] Co de Phone Number [facility] [place] [address] * Iron profile w/ IBC (10/18/2022 11:28 AM CDT) Iron 59 35 - 145 mcg/dL [facility] TIBC 288 250 - 400 mcg/dL [facility] Transferrin saturation 20 20 - 50 % [facility] Blood 10/18/2022 11:2 8 AM CDT 10/18/2022 11:55 AM CDT Katja Linares MD LAB BLOOD ORDERABLES Caitlyn l Result Performing Organization Address [facility] Co de Phone Number [facility] [place] [address] * Haptoglobin (10/18/2022 11:28 AM CDT) Pathologist [facility] Haptoglobin 165.0 30.0 - 200.0 mg/dL [facility] Blood 10/18/2022 11:2 8 AM CDT 10/18/2022 11:55 AM CDT Katja Linares MD LAB BLOOD ORDERABLES Caitlyn l Result Performing Organization Address [facility] Co de Phone Number [facility] [place] [address] * Reticulocyte Count (10/18/2022 11:28 AM CDT) Retics, absolute 0.028 0.020 - 0.087 M/cumm [facility] Comment:Testing performed by : [facility], [address] [place] [phone] Retics 0.85 0.50 - 1.80 % [facility] Comment:Testing performed by : [facility], [address] [place] [phone] Blood 10/18/2022 11:2 8 AM CDT 10/18/2022 11:38 AM CDT Katja Linares MD LAB BLOOD ORDERABLES Caitlyn l Result [facility] [place] [address] * Lactate dehydrogenase (LD) (10/18/2022 11:28 AM CDT) Lactate dehydrogenase (LDH) 178 100 - 250 Units/L [facility] Comment:Testing performed by : [facility], [address] [place] [phone] Blood 10/18/2022 11:2 8 AM CDT 10/18/2022 11:38 AM CDT Katja Linares MD LAB BLOOD ORDERABLES Caitlyn l Result Performing Organization Address City/[facility]/ZIP Co de Phone Number [facility] [place] [address] * (ABNORMAL) Comprehensive metabolic panel (10/18/2022 11:28 AM CDT) Sodium 140 135 - 145 mmol/L [facility] Comment:Testing performed by : [facility], [address] [place] [phone] Potassium, pl 4.5 3.3 - 4.9 mmol/L [facility] Comment:Testing performed by : [facility], [address] [place] [phone] Chloride 105 97 - 110 mmol/L [facility] Comment:Testing performed by : [facility], [address] [place] [phone] CO2 29 22 - 32 mmol/L [facility] Comment:Testing performed by : [facility], [address] [place] [phone] Anion gap 6 2 - 15 mmol/L [facility] Comment:Testing performed by : [facility], [address] [place] [phone] BUN 21 8 - 25 mg/dL [facility] Comment:Testing performed by : [facility], [address] [place] [phone] Creatinine 1.15(H) 0.60 - 1.10 mg/dL [facility] Comment:Testing performed by : [facility], [address] [place] [phone] Glucose 83 70 - 199 mg/dL [facility] [...] was last revised 2022. Testing performed by: [facility], [address] [place] [phone] Calcium 10.0 8.5 - 10.3 mg/dL [facility] Comment:Testing performed by : [address] [phone] Bilirubin, total 0.4 0.1 - 1.2 mg/dL [facility] Comment:Testing performed by : [facility], [address] [place] [phone] Protein, pl 6.9 6.5 - 8.5 g/dL [facility] Comment:Testing performed by : [address] [phone] Albumin 4.1 3.5 - 5.0 g/dL [facility] Comment:Testing performed by : [address] [phone] Alk phos 81 40 - 130 Units/L [facility] Comment:Testing performed by : [address] [phone] ALT 15 7 - 45 Units/L [facility] Comment:Testing performed by : [facility], [address] [place] [phone] AST 18 10 - 45 Units/L [facility] Comment:Testing performed by : [facility], [address] [place] [phone] Blood 10/18/2022 11:2 8 AM CDT 10/18/2022 11:38 AM CDT Narrative [facility] - 10/18/2022 11:57 AM CDT Has the patient fasted?->No us Katja Linares MD LAB BLOOD ORDERABLES Caitlyn dominguez Result [facility] Department [place] [address] * (ABNORMAL) CBC with auto differential (10/18/2022 11:28 AM CDT) WBC 4.9 3.8 - 9.8 K/cumm [facility] Comment:Testing performed by : [facility], [address] [place] [phone] Hgb 10.1(L) 12.1 - 15.1 g/dL [facility] Comment:Testing performed by : [facility], [address] [place] [phone] Hct 29.9(L) 36.1 - 44.3 % [facility] Comment:Testing performed by : [facility], [address] [place] [phone] Plt 186 140 - 440 K/cumm [facility] Comment:Testing performed by : [facility], [address] [place] [phone] MPV 9.6 6.8 - 10.4 fL [facility] Comment:Testing performed by : [facility], [address] [place] [phone] RBC 3.29(L) 3.90 - 5.00 M/cumm [facility] Comment:Testing performed by : [facility], [address] [place] [phone] MCV 91.0 80.0 - 97.6 fL [facility] Comment:Testing performed by : [facility], [address] [place] [phone] MCH 30.9 26.7 - 33.7 pg [facility] Comment:Testing performed by : [facility], [address] [place] [phone] MCHC 33.9 32.7 - 35.5 g/dL [facility] Comment:Testing performed by : [facility], [address] [place] [phone] RDW CV 13.3 11.8 - 14.6 % [facility] Comment:Testing performed by : [facility], [address] [place] [phone] NRBC abs 0.00 0.00 - 0.01 K/cumm [facility] Comment:Testing performed by : [facility], [address] [place] [phone] Blood 10/18/2022 11:2 8 AM CDT 10/18/2022 11:38 AM CDT us Katja Linares MD LAB BLOOD ORDERABLES Caitlyn l Result [facility] Department [place] [address] documented in this encounter Visit Diagnoses Diagnosis Anemia, unspecified type Anemia, unspecified type documented in this encounter Orders Outpatient Referral Count Last Ordered Date Fir st Ordered Date AMB REFERRAL TO HEMATOLOGY 1 10/18/2022 documented in this encounter Care Teams Industrial Psychology Teacher Relationship Specialty Start Date End Date Cristian Ling MD [address] [place] [address] PCP - General 10/16/16 documented as of this encounter
--- OUTSIDE RECORDS SUMMARY | 2024-06-12 03:58 | XMS_ITS | Encounter Summary ---
Author Organization [facility] Address [address] [place] [address] Phone Care Team Providers Care Outreach Analyst Name Role Phone Cristian Ling MD Primary Care Prov ider Reason for Visit * Reason Onset Date Comments Confirmation 10/17/2022 Encounter Details Date Type Department Care Team (Late st Contact Info) Description 10/17/2022 Telephone [facility] Hematology [address] [facility] 7th [place] [address] [place] [address] Sully Owens Confirmation Social History [...] on file Legal Sex Female 7:12 AM SOLAR PHOTOVOLTAIC CREW LEAD Gender Identity Female 02/07/2021 4:33 PM CDT Sexual Orientation Straight 02/07/2021 4: 33 PM CDT documented as of this encounter Miscellaneous Notes * Telephone Encounter - Sully Owens - 10/17/2022 12:09 PM CDT Spoke with new hem. patient and confirmed office/lab appt. with Dr. Esther Linares on 10-18-22 @ 10:15 AM at [facility]. documented in this encounter Plan of Treatment Not on file documented as of this encounter Visit Diagnoses Not on filedocumented in this encounter Care Teams Outreach Analyst Relationship Specialty Start Date End Date Cristian Ling MD [address] [place] [address] PCP - General 10/16/16 documented as of this encounter
--- OUTSIDE RECORDS SUMMARY | 2024-06-12 03:59 | XMS_ITS | Encounter Summary ---
Author Organization [facility] Address [address] [place] [address] Phone Care Team Providers Care Wharf Worker Name Role Phone Cristian Ling MD Primary Care Prov ider Encounter Details Date Type Department Care Team (Late st Contact Info) Description 05/02/[address] [facility] Cardiology [address] [facility] 8th [place] [address] [place] [address] Sami Stafford MD [address] [facility] [address] [place], [place] [id number] Social History Tobacco Use Types Packs/Day Years [...] on file Legal Sex Female 7:12 AM FINANCIAL AID OFFICER Gender Identity Female 02/07/2021 4:33 PM CDT Sexual Orientation Straight 02/07/2021 4: 33 PM CDT documented as of this encounter Miscellaneous Notes * Telephone Encounter - Sheila Solomon RN - 05/02/2022 3:33 PM FINANCIAL AID OFFICER Spoke with pt who is having issues with the monitor she received at her OV yesterday. Instructed ptto contact preventice regarding issues with monitor. Patient verbalized understanding. NCIAL AID OFFICER * Telephone Encounter - Clara Brasher - 05/02/2022 3:28 PM CST YULIA PT STATES BP MONITOR IS NOT WORKING. PLEASE CALL TO DISCUSS NCIAL AID OFFICER documented in this encounter Plan of Treatment Not on file documented as of this encounter Visit Diagnoses Not on filedocumented in this encounter Care Teams Wharf Worker Relationship Specialty Start Date End Date Cristian Ling MD [address] [place] [address] PCP - General 10/16/16 documented as of this encounter
--- OUTSIDE RECORDS SUMMARY | 2024-06-12 03:59 | XMS_ITS | Encounter Summary ---
Author Organization [facility] Address [address] [place] [address] Care Team Providers Care Nuclear Plant Technical Advisor Name Role Phone Cristian Ling MD Primary Care Prov ider Reason for Referral * MRI/CAT/PET Scan (Routine) - Closed Specialty Diagnoses / Procedures Referred By Teaac t Referred To Contact Radiology Diagnoses Hypertrophic cardiomyopathy (CMS/HCC) (HCC) Palpitations Procedures MRI Cardiac M&F WO Contrast Sami Stafford MD [address] [employer] [address] [address] Phone: tel: fax: [address] [phone] Referral ID Status Reason Start Date Expiration Date Visits Re quested Visits Authorized [id number] Closed 05/01/2022 05/31/2023 1 1 STRIAL ECONOMICS PROFESSOR Reason for Visit * MRI/CAT/PET Scan (Routine) - Closed Specialty Diagnoses / Procedures Referred By Contac t Referred To Contact Radiology Diagnoses Hypertrophic cardiomyopathy (CMS/HCC) (HCC) Palpitations Procedures MRI Cardiac M&F WO Contrast Sami Stafford MD [address] [employer] [address] [address] Phone: tel: fax: [address] [phone] Referral ID Status Reason Start Date Expiration Date Visits Re quested Visits Authorized [id number] Closed 05/01/2022 05/31/2023 1 1 Encounter Details Date Type Department Care Team (Latest Contact Info) Description 07/25/2022 9:43 AM INDUSTRIAL ECONOMICS PROFESSOR - 07/25/2022 11:59 PM INDUSTRIAL ECONOMICS PROFESSOR Hospital Encounter [facility] [address] [place] [id number] Hypertrophic cardiomyopathy (CMS/HCC) (HCC); Palpitations Discharge Disposition: Discharge to home or self [...] on file Legal Sex Female 7:12 AM INDUSTRIAL ECONOMICS PROFESSOR Gender Identity Female 02/07/2021 4:33 PM CDT [...] Encounter Note - Sami Stafford MD - 07/25/2022 10:00 AM INDUSTRIAL ECONOMICS PROFESSOR Reviewed cardiac MRI report. Unable to reach patient, left message on to call back. 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 No apical aneurysm. Mild pachy fibrosis. Normal LVEF. Plan: - continue metoprolol. - low threshold to stop clopidogrel if any bleeding as the mildly elevated troponin at [facility] in 03/2022 was in the setting of hypertensive urgency and may have been secondary to the HCM - will plan on yearly Holter monitors No other change to regimen at this time. STRIAL ECONOMICS PROFESSOR documented in this encounter Plan of Treatment Not on file documented as of this encounter Procedures Procedure Name Priority Date/Time Associated Diagnosis Comments MRI CARDIAC M&F WO CONTRAST Schedule Routine, Read Routine (OP Routine) 07/25/2022 10:54 AM INDUSTRIAL ECONOMICS PROFESSOR Hypertrophic cardiomyopathy (CMS/HCC) (HCC) Palpitations documented in this encounter Results * MRI Cardiac M&F WO Contrast (07/25/2022 10:54 AM INDUSTRIAL ECONOMICS PROFESSOR) Anatomical Region Laterality Modality Body N/A Magnetic Resonan ce 07/25/2022 1:33 PM INDUSTRIAL ECONOMICS PROFESSOR Impressions 07/26/2022 8:44 AM INDUSTRIAL ECONOMICS PROFESSOR 1. ??Findings consistent with apical variant hypertrophic cardiomyopathy measuring [...] it. Electronically signed by: Phil Lewis M.D. Narrative 07/26/2022 8:44 AM INDUSTRIAL ECONOMICS PROFESSOR EXAMINATION: ??MRI CARDIAC M/T/F WO CONTRAST HISTORY: ??Hypertrophic cardiomyopathy. TECHNIQUE: ??Multiplanar magnetic resonance imaging (MRI) of the heart with ultrafast spin echo and balanced steady state free precession sequences was performed without contrast, according to a custom protocol. This examination included dedicated phase contrast sequences and post processing for flow velocities. 3-D postprocessing was subsequently ??performed on a dedicated 3-D workstation. COMPARISON: ??CT dated 05/10/2017 FINDINGS: Patient is status post [...] systole. No left ventricular outflow tract obstruction. ??No abnormal systolic anterior motion of the mitral valve leaflet. Qualitatively, there is mild mitral valve regurgitation and mild tricuspid valve regurgitation. There is no pulmonic regurgitation. The aortic valve morphology is normal with mild thickening of the valve leaflets.There is no aortic stenosis and no aortic regurgitation. [place] T1 mapping demonstrates mildly increased signal throughout the left ventricular apex. ??T2 mapping demonstrates normal signal throughout the left ventricular myocardium. ?? Body surface area: ??1.8 m2 Left ventricle: Ejection Fraction: ??54% End diastolic volume: ??155 mL (82 mL/m2, indexed) End systolic volume: ??60 mL (32 mL/m2, indexed) Stroke volume: ??80 mL (42 mL/m2, indexed) Cardiac output: ??4.8 L/min Cardiac index: ??2.7 L/min/m2 Right ventricle: Ejection Fraction: ??57% End diastolic volume: ??140 mL (74 mL/m2, indexed) End systolic volume: ??60 mL Stroke volume: ??80 mL (42 mL/m2, indexed) Cardiac output: ??4.8 L/min Cardiac index: ??2.6 L/min/m2 Flow Quantification: Aorta above valve (HR 62 bpm) Peak velocity: ??1.8 m/sec Peak pressure gradient: ??13 mmHg Fwd flow: ??83 mL Rev flow: ??1 mL Net flow: ?? 82 mL Regurgitant fraction: ??0% Subvalvular: Pressure gradient= 8 mmHg Peak velocity = 1.4 m/s Net flow=80 mL Pulmonary artery above valve (HR 61 bpm) Peak velocity: ??0.9 ??m/sec Peak pressure gradient: ??3 mmHg Fwd flow: ??86 mL Rev flow: ??0 mL Net flow: ?? 86 mL Regurgitant fraction: ??0% Procedure Note Phil Lewis MD - 07/26/2022 EXAMINATION: MRI CARDIAC M/T/F WO CONTRAST HISTORY: [...] no aortic stenosis and no aortic regurgitation. [place] T1 mapping demonstrates mildly increased signal throughout [...] Net flow: 86 mL Regurgitant fraction: 0% IMPRESSION: 1. Findings consistent with apical variant hypertrophic [...] it. Electronically signed by: Phil Lewis M.D. Sami Stafford MD IMG MRI PROCEDURES Final Resu lt documented in this encounter Visit Diagnoses Diagnosis Hypertrophic cardiomyopathy (CMS/HCC) (HCC) Other primary cardiomyopathies Palpitations documented in this encounter Care Teams Nuclear Plant Technical Advisor Relationship Specialty Start Date End Date Cristian Ling MD [address] [place] [address] PCP - General 10/16/16 documented as of this encounter
--- OUTSIDE RECORDS SUMMARY | 2024-06-12 03:59 | XMS_ITS | Encounter Summary ---
Author Organization [facility] Address [address] [facility] [address] [place] [address] Care Team Providers Care Brass Reclaimer Name Role Phone Cristian Ling MD Primary Care Prov ider Encounter Details Date Type Department Care Team (Late st Contact Info) Description 04/02/2022 Orders Only [facility] Cardiology [address] [place] [address] [place] [address] [place] [address] Social History Tobacco Use Types Packs/Day [...] on file Legal Sex Female 7:12 AM COMPRESSOR SERVICE TECHNICIAN Gender Identity Female 02/07/2021 4:33 PM CDT Sexual Orientation Straight 02/07/2021 4: 33 PM CDT documented as of this encounter Plan of Treatment Not on file documented as of this encounter Procedures Procedure Name Priority Date/Time Associated Diagnosis Comments CARDIOLOGY DOCUMENT SCAN Routine 04/02/2022 documented in this encounter Results * Cardiology Document Scan (04/02/2022) Anatomical Region Laterality Modality Other [facility] Pratima Perry MD CV CARDIAC SERVICES PRO CEDURES Final Result documented in this encounter Visit Diagnoses Not on filedocumented in this encounter Care Teams Brass Reclaimer Relationship Specialty Start Date End Date Cristian Ling MD [address] [place] [address] PCP - General 10/16/16 documented as of this encounter
--- OUTSIDE RECORDS SUMMARY | 2024-06-12 03:59 | XMS_ITS | Encounter Summary ---
Author Organization [facility] Address [address] [place] [address] Phone Care Team Providers Care Tack Cleaner Name Role Phone Cristian Ling MD Primary Care Prov ider Encounter Details Date Type Department Care Team (Late st Contact Info) Description 05/01/2022 Orders Only [facility] Cardiology [address] [facility] 8th [place] [address] [place] [address] Sami Stafford MD [address] [facility] [address] [place], [place] [id number] Social History Tobacco Use Types Packs/Day Years [...] on file Legal Sex Female 7:12 AM TELEHEALTH DIRECTOR Gender Identity Female 02/07/2021 4:33 PM CDT Sexual Orientation Straight 02/07/2021 4: 33 PM CDT documented as of this encounter Plan of Treatment Not on file documented as of this encounter Visit Diagnoses Not on filedocumented in this encounter Care Teams Tack Cleaner Relationship Specialty Start Date End Date Cristian Ling MD [address] [place] [address] PCP - General 10/16/16 documented as of this encounter
--- OUTSIDE RECORDS SUMMARY | 2024-06-12 03:59 | XMS_ITS | Encounter Summary ---
Author Organization [facility] Address [address] [facility] [address] [place] [address] Care Team Providers Care Hotel And Dining Room Cashier Name Role Phone Cristian Ling MD Primary Care Prov ider Reason for Referral * Consultation (Routine) - Closed Specialty Diagnoses / Procedures Referred By Contact Referred To Contact Physical Medicine and Rehabilitation Diagnoses Right hip pain Maxx Pratt MD Phone: tel: fax: Jamari Orellana MD [address] [facility] [address] [place] [address] Phone: tel: fax: Referral ID Status Reason Start Date Expiration Date V isits Requested Visits Authorized [id number] Closed Specialty Services Required 11/28/2021 12/28/2022 1 1 Question Answer Please select the performing region: [facility] (All Locations) [167] To provider: JAMARI ORELLANA [[id number]] # of visits: 1 Comments EVALUATION/TREATMENT RIGHT HIP Encounter Details Date Type Department Care Team (Late st Contact Info) Description 11/28/2021 Orders Only [facility] [place] [address] [facility] [address] [place] [address] Maxx Pratt MD [address] [facility] [address] [place] [address] Right hip pain (Primary Dx) Social History Tobacco Use Types [...] on file Legal Sex Female 7:12 AM BORDER MEASURER Gender Identity Female 02/07/2021 4:33 PM CDT Sexual Orientation Straight 02/07/2021 4: 33 PM CDT documented as of this encounter Progress Notes * Elodia Baker - 11/28/2021 9:28 AM CDT Order in [facility]-Dr. Orellana will call patient to [facility] appt. Pt is aware. documented in this encounter Plan of Treatment Scheduled Referrals Name Type Priority Associated Diagnoses Order Schedule Ambulatory referral to Orthopedic Physiatry Outpatient Referral Routine Right hip pain Expected: 11/28/2021 (Approximate), Expires: 11/28/2022 documented as of this encounter Visit Diagnoses Diagnosis Right hip pain- Primary Pain in joint, pelvic region and thigh documented in this encounter Care Teams Hotel And Dining Room Cashier Relationship Specialty Start Date End Date Cristian Ling MD [address] [place] [address] PCP - General 10/16/16 documented as of this encounter
--- OUTSIDE RECORDS SUMMARY | 2024-06-12 03:59 | XMS_ITS | Encounter Summary ---
Author Organization [facility] Address [address] [place] [address] Phone Care Team Providers Care Remote Control Mirror Installer Name Role Phone Cristian Ling MD Primary Care Prov ider Encounter Details Date Type Department Care Team (Latest Contact Info) Description 05/18/2022 Orders Only [facility] Scanning, Provider Social History Tobacco Use Types [...] on file Legal Sex Female 7:12 AM NIGHT ORDER SELECTOR Gender Identity Female 02/07/2021 4:33 PM CDT Sexual Orientation Straight 02/07/2021 4: 33 PM CDT documented as of this encounter Progress Notes * Sheila Solomon RN - 05/18/2022 11:59 PM CST See telephone enc 05/22. T ORDER SELECTOR documented in this encounter Plan of Treatment Not on file documented as of this encounter Procedures Procedure Name Priority Date/Time Associated Diagnosis Comments CARDIOLOGY DOCUMENT SCAN 05/18/2022 documented in this encounter Results * CARDIOLOGY DOCUMENT SCAN (05/18/2022) Anatomical Region Laterality Modality Other us Provider Scanning CV CARDIAC SERVICES PROCEDURES Final Result documented in this encounter Visit Diagnoses Not on filedocumented in this encounter Care Teams Remote Control Mirror Installer Relationship Specialty Start Date End Date Cristian Ling MD [address] [place] [address] PCP - General 10/16/16 documented as of this encounter
--- OUTSIDE RECORDS SUMMARY | 2024-06-12 03:59 | XMS_ITS | Encounter Summary ---
Author Organization [facility] Address [address] [place] [address] Phone Care Team Providers Care Automotive Service Porter Name Role Phone Cristian Ling MD Primary Care Prov ider Encounter Details Date Type Department Care Team (Late st Contact Info) Description 04/03/2022 Telephone [facility] Cardiology [address] [facility] 8th [place] [address] [place] [address] Sami Stafford MD [address] [facility] [address] [place], [place] [id number] Social History Tobacco Use Types Packs/Day Years [...] on file Legal Sex Female 7:12 AM CHIEF EXECUTIVE OFFICER Gender Identity Female 02/07/2021 4:33 PM CDT Sexual Orientation Straight 02/07/2021 4: 33 PM CDT documented as of this encounter Miscellaneous Notes * Telephone Encounter - Sheila Solomon RN - 04/03/2022 1:20 PM CDT LMOR for pt to return call. * Telephone Encounter - Yara Espinosa - 04/03/2022 12:12 PM CDT Rivera Pt calling to speak with a nurse in regards to being currently in the hospital and the results of her stress test that she just had done documented in this encounter Plan of Treatment Not on file documented as of this encounter Visit Diagnoses Not on filedocumented in this encounter Care Teams Automotive Service Porter Relationship Specialty Start Date End Date Cristian Ling MD [address] [place] [address] PCP - General 10/16/16 documented as of this encounter
--- OUTSIDE RECORDS SUMMARY | 2024-06-12 03:59 | XMS_ITS | Encounter Summary ---
Author Organization [facility] Address [address] [place] [address] Phone Care Team Providers Care Core Placer Name Role Phone Cristian Ling MD Primary Care Prov ider Encounter Details Date Type Department Care Team (Latest Contact Info) Description 06/05/2022 Orders Only [facility] Scanning, Provider [...] on file Legal Sex Female 7:12 AM MANAGER PRESENTATION Gender Identity Female 02/07/2021 4:33 PM CDT Sexual Orientation Straight 02/07/2021 4: 33 PM CDT documented as of this encounter Plan of Treatment Not on file documented as of this encounter Procedures Procedure Name Priority Date/Time Associated Diagnosis Comments SCAN - LABS 06/05/2022 documented in this encounter Results * SCAN - LABS (06/05/2022) us Provider Scanning Edited Result - Final documented in this encounter Visit Diagnoses Not on filedocumented in this encounter Care Teams Core Placer Relationship Specialty Start Date End Date Cristian Ling MD [address] [place] [address] PCP - General 10/16/16 documented as of this encounter
--- OUTSIDE RECORDS SUMMARY | 2024-06-12 03:59 | XMS_ITS | Encounter Summary ---
Author Organization [facility] Address [address] [facility] [address] [place] [address] Care Team Providers Care Nursing Unit Coordinator Name Role Phone Cristian Ling MD Primary Care Prov ider Encounter Details Date Type Department Care Team (Late st Contact Info) Description 04/03/2022 Orders Only [facility] Cardiology [address] [place] [address] Archie Orellana MD [address] [place] [id number] Social History Tobacco Use Types Packs/Day Years [...] on file Legal Sex Female 7:12 AM ENAMEL BURNER Gender Identity Female 02/07/2021 4:33 PM CDT Sexual Orientation Straight 02/07/2021 4: 33 PM CDT documented as of this encounter Plan of Treatment Not on file documented as of this encounter Procedures Procedure Name Priority Date/Time Associated Diagnosis Comments CARDIOLOGY DOCUMENT SCAN Routine 04/03/2022 documented in this encounter Results * Cardiology Document Scan (04/03/2022) Anatomical Region Laterality Modality Other us Archie Orellana MD CV CARDIAC SERVICES [facility] Final Result documented in this encounter Visit Diagnoses Not on filedocumented in this encounter Care Teams Nursing Unit Coordinator Relationship Specialty Start Date End Date Cristian Ling MD [address] [place] [address] PCP - General 10/16/16 documented as of this encounter
--- OUTSIDE RECORDS SUMMARY | 2024-06-12 03:59 | XMS_ITS | Encounter Summary ---
Author Organization [facility] Address [address] [place] [address] Phone Care Team Providers Care Clinical Project Coordinator Name Role Phone Cristian Ling MD Primary Care Prov ider Encounter Details Date Type Department Care Team (Late st Contact Info) Description 04/01/2022 Telephone [facility] Cardiology [address] [facility] 8th [place] [address] [place] [address] Sami Stafford MD [address] [facility] [address] [place], [place] [id number] Social History Tobacco Use Types Packs/Day Years [...] on file Legal Sex Female 7:12 AM TITLE CHECKER Gender Identity Female 02/07/2021 4:33 PM CDT Sexual Orientation Straight 02/07/2021 4: 33 PM CDT documented as of this encounter Miscellaneous Notes * Telephone Encounter - Sami Stafford MD - 04/02/2022 1:52 PM CDT Thank you for the note. * Telephone Encounter - Sheila Solomon RN - 04/02/2022 8:50 AM CDT Pt denies it feeling like her prior vertigo. She says she is in the hospital. Was having chest pain at her facility last night and they sent herto ED. She reports she is at [facility] and the doctors have mentioned a possible cardiac cath or a stress test. They said they would be reaching out to JS to discuss; pt wants his input/prefers to have procedure at [facility]. Will make JS aware. * Telephone Encounter - Sami Stafford MD - 04/01/2022 4:00 PM CDT Does this feel like her prior vertigo? Monitor symptoms and bp, call if any concerns. * Telephone Encounter - Sheila Solomon RN - 04/01/2022 3:15 PM CDT Spoke with pt who became dizzy at 10:00 AM. Feels a little better now, but is dizzy when moving around. Earlier, she was dizzy in all positions, but now it feels more like when she moves around. Denies decrease in fluid intake. They took vitals and she said it was high when I was laying down and ok sitting and standing up. She said she had a horrible pain in her back from the waist up when she sat down today. It only lasted a few seconds, but it concerned her. I told her to continue drinking fluids, as the way to indicate dehydration would be her symptoms and lab work and she may be dehydrated. I told her I would relay the info to JS and see if he has any further recs. * Telephone Encounter - Jody Gupta Fatimah - 04/01/2022 3:03 PM CDT Rivera Pt states she was not feeling well today and was dizzy. Pt states she lives in an personal injury legal assistant living facility and they had taken her BP, her BP was high while lying down and was ok when standing. They told pt she is dehydrated and pt asking if Dr. Stafford agrees with this. Please call. documented in this encounter Plan of Treatment Not on file documented as of this encounter Visit Diagnoses Not on filedocumented in this encounter Care Teams Clinical Project Coordinator Relationship Specialty Start Date End Date Cristian Ling MD [address] [place] [address] PCP - General 10/16/16 documented as of this encounter
--- OUTSIDE RECORDS SUMMARY | 2024-06-12 03:59 | XMS_ITS | Encounter Summary ---
Author Organization [facility] Address [address] [place] [address] Care Team Providers Care Economic Development Manager Name Role Phone Cristian Ling MD Primary Care Prov ider Reason for Referral * Consultation (Routine) - Closed Specialty Diagnoses / Procedures Referred By Paula t Referred To Contact Orthopedic Surgery Diagnoses Low back pain, unspecified back pain laterality, unspecified chronicity, unspecified whether sciatica present Cristian Ling MD [address] [place] [address] Phone: tel: fax: [facility] [place] (All Locations) Referral ID Status Reason Start Date Expiration Date V isits Requested Visits Authorized [id number] Closed Specialty Services Required 04/04/2022 05/04/2023 1 1 Question Answer Please select the performing region: [facility] [place] (All Locations) [167] # of visits: 1 L AND AXLE INSPECTOR * Diagnostic Imaging (Routine) - Closed Specialty Diagnoses / Procedures Referred By Paula t Referred To Contact Diagnoses Right hip pain Primary osteoarthritis of right hip Procedures FL Fluoro Guided Injection Hip Right Jamari Briseno MD [address] [facility] [address] [place] [address] Phone: tel: fax: [facility] [address] [place] [address] Referral ID Status Reason Start Date Expiration Date Visits Re quested Visits Authorized [id number] Closed 03/26/2022 04/25/2023 1 1 L AND AXLE INSPECTOR Reason for Visit * Consultation (Routine) - Closed Specialty Diagnoses / Procedures Referred By Contac t Referred To Contact Orthopedic Surgery Diagnoses Low back pain, unspecified back pain laterality, unspecified chronicity, unspecified whether sciatica present Cristian Ling MD [address] [place] [address] Phone: tel: fax: [facility] [place] (All Locations) Referral ID Status Reason Start Date Expiration Date V isits Requested Visits Authorized [id number] Closed Specialty Services Required 04/04/2022 05/04/2023 1 1 Encounter Details Date Type Department Care Team (Latest Contact Info) Description 05/16/2022 1:55 PM WHEEL AND AXLE INSPECTOR - 05/16/2022 11:59 PM WHEEL AND AXLE INSPECTOR Hospital Encounter [id number] Radiology [address] [facility] [address] [place] [address] Jamari Briseno MD [address] [facility] [address] [place], [place] [id number] Right hip pain; Primary osteoarthritis of right hip; Low back pain, unspecified back pain laterality, unspecified chronicity, unspecified whether sciatica present Discharge Disposition: Discharge to home or self [...] on file Legal Sex Female 7:12 AM WHEEL AND AXLE INSPECTOR Gender Identity Female 02/07/2021 4:33 PM CDT Sexual Orientation Straight 02/07/2021 4: 33 PM CDT documented as of this encounter Discharge Instructions * Patient Instructions* Jamari Briseno MD - 05/16/2022 2:20 PM WHEEL AND AXLE INSPECTOR Post Procedure Instructions You received a steroid [...] those with type 1 diabetes. Check fasting (route contractor prior to first meal of the day) [...] concerns after hours, call our exchange at [phone]. For all other questions regarding the procedure, please call our office at [phone]. Pain Diary Please fill out the pain diary chart below and call or message via [employer] the medical provider whorequested the injection, Dr. [...] weeks after? 0% 20% 50% 80% 100% L AND AXLE INSPECTOR documented in this encounter Medications at Time [...] XL (TOPROL-XL) 25 mg extended release tablet 0.5 tablets (12.5 mg total) daily 09/21/2012 06/11/2022 multivitamin no.44-vit D3-K 1,000-800 unit-mcg capsule daily. [...] Progress Notes * Jamari Briseno MD - 05/16/2022 2:20 PM CST Right Fluoroscopically-Guided Hip Joint Injection [facility] [place] Department of Orthopedic Surgery Division of Physical Medicine and Rehabilitation Patient name: Tiera Lobato Date of : 1945 Date of service: 05/16/2022 Tiera Lobato presents to the fluoroscopy suite [...] with the infusion of 0.5 mL of Optiray contrast which showed capsular flow. Then, a [...] obtained by injecting approximately 0.5 mL of Optiray contrast. Therewas no evidence of vascular uptake noted. I personally performed or was present for the entire procedure above. Jamari Briseno MD L AND AXLE INSPECTOR documented in this encounter Plan of Treatment Scheduled Referrals Name Type Priority Associated Diagnoses Order Schedule Ambulatory referral to Orthopedic Surgery Outpatient Referral Routine Low back pain, unspecified back pain laterality, unspecified chronicity, unspecified whether sciatica present Once for 1 Occurrences starting 05/16/2022 until 05/16/2022 documented as of this encounter Procedures Procedure Name Priority Date/Time Associated Diagnosis Comments FLUORO GUIDED INJECTION HIP RIGHT Schedule Routine, Read Routine (OP Routine) 05/16/2022 2:31 PM WHEEL AND AXLE INSPECTOR Right hip pain Primary osteoarthritis of right hip documented in this encounter Results * FL Fluoro Guided Injection Hip Right (05/16/2022 2:31 PM WHEEL AND AXLE INSPECTOR) Narrative [facility] - 05/16/2022 2:31 PM WHEEL AND AXLE INSPECTOR The images from this study are not interpreted by Radiology. ??Please refer to the physician's procedure / OR operative note. Jamari Briseno MD IMG FLUOROSCOPY PROCEDURES Final Result [facility] documented in this encounter Visit Diagnoses Diagnosis Right hip pain Pain in joint, pelvic region and thigh Primary osteoarthritis of right hip Low back pain, unspecified back pain laterality, unspecified chronicity, unspecified whether sciatica present documented in this encounter Administered Medications Inactive Administered Medications - up to 3 most recent administrations Medication Order MAR Action Action Date Dose Rate Site ioversoL (OPTIRAY 350) injection As needed, Starting on Concha 05/16/22 at 1359, Intra-Op Given 05/16/2022 1:59 PM WHEEL AND AXLE INSPECTOR 0.5 mL lidocaine (XYLOCAINE) 10 mg/mL (1 %) injection As needed, Starting on Concha 05/16/22 at 1358, Intra-Procedure (IR), Indications: Administration of Local AnesthesiaIndications:Administrat ion of Local Anesthesia Given 05/16/2022 1:58 PM WHEEL AND AXLE INSPECTOR 3 mL ropivacaine (NAROPIN) 2 mg/mL (0.2 %) preservative free injection As needed, Starting on Concha 05/16/22 at 1358, Intra-Op Given 05/16/2022 1:58 PM WHEEL AND AXLE INSPECTOR 3 mL triamcinolone (KENALOG) 40 mg/mL injection As needed, Starting on Concha 05/16/22 at 1359, Intra-Op Given 05/16/2022 1:59 PM WHEEL AND AXLE INSPECTOR 40 mg documented in this encounter Care Teams Economic Development Manager Relationship Specialty Start Date End Date Cristian Ling MD [address] [place] [address] PCP - General 10/16/16 documented as of this encounter
--- OUTSIDE RECORDS SUMMARY | 2024-06-12 03:59 | XMS_ITS | Encounter Summary ---
Author Organization [facility] Address [address] [place] [address] Phone Care Team Providers Care Ordnance Engineer Name Role Phone Cristian Ling MD Primary Care Prov ider Encounter Details Date Type Department Care Team (Late st Contact Info) Description 04/04/2022 Telephone [facility] Cardiology [address] [facility] Advanced [facility] 8th [place] [address] [place] [address] Sami Stafford MD [address] [facility] [address] [place], [place] [id number] Social History Tobacco Use Types Packs/Day Years [...] on file Legal Sex Female 7:12 AM INFORMATION ASSURANCE SPECIALIST Gender Identity Female 02/07/2021 4:33 PM CDT Sexual Orientation Straight 02/07/2021 4: 33 PM CDT documented as of this encounter Miscellaneous Notes * Telephone Encounter - Jody Gupta - 04/04/2022 9:09 AM CDT Rivera Pt is being d/c today and has appt with Dr. Stafford on 05/01/22. Anil advised pt had elevated troponin and was started on Brilinta, they want pt to continue on this until seen by Dr. Stafford. Pt also has elevated BMP and they are starting her on a low dose lasix. Pt had stress test and this was negative. 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 Would Dr. Stafford want to work pt in sooner, they were asking for pt to be seen in a week, there are no openings with nor DATA ENTRY TECHNICIAN. Please call pt is rescheduling is needed. documented in this encounter Plan of Treatment Not on file documented as of this encounter Visit Diagnoses Not on filedocumented in this encounter Care Teams Ordnance Engineer Relationship Specialty Start Date End Date Cristian Ling MD [address] [place] [address] PCP - General 10/16/16 documented as of this encounter
--- OUTSIDE RECORDS SUMMARY | 2024-06-12 03:59 | XMS_ITS | Encounter Summary ---
Author Organization [facility] Address [address] [place] [address] Phone Care Team Providers Care Cannery Worker Name Role Phone Cristian Ling MD Primary Care Prov ider Encounter Details Date Type Department Care Team (Late st Contact Info) Description 05/22/2022 Telephone [facility] Cardiology [address] [facility] 8th [place] [address] [place] [address] Sami Stafford MD [address] [facility] [address] [place], [place] [id number] Social History Tobacco Use Types Packs/Day Years [...] on file Legal Sex Female 7:12 AM ELECTRICAL JOURNEYMAN Gender Identity Female 02/07/2021 4:33 PM CDT Sexual Orientation Straight 02/07/2021 4: 33 PM CDT documented as of this encounter Ordered Prescriptions Prescription Sig Dispense Quantity Refills Last Filled Start Date End Date metoprolol XL (TOPROL-XL) 25 mg extended release tablet Take 1 tablet (25 mg total) by mouth daily 30 tablet 3 06/11/2022 10/14/2022 apixaban (ELIQUIS) 5 mg tablet Take 1 tablet (5 mg total) by mouth 2 (two) times a day 60 tablet 2 06/11/2022 09/17/2022 documented in this encounter Miscellaneous Notes * Telephone Encounter - Sheila Pacheco RN - 06/11/2022 2:44 PM ELECTRICAL JOURNEYMAN cMRI scheduled 07/25/2022. Will watch for results. TRICAL JOURNEYMAN * Addendum Note - Sheila Pacheco RN - 06/11/2022 9:12 AM CSTAddended by: SHEILA PACHECO on: 06/11/2022 09:12 AM Modules accepted: Orders TRICAL JOURNEYMAN * Telephone Encounter - Sheila Pacheco RN - 06/11/2022 9:08 AM ELECTRICAL JOURNEYMAN Spoke with pt to relay lab results. Eliquis was sent to pharmacy. Pt instructed to let us know if she has any significant bleeding. Pt also instructed to increase metoprolol to 25mg daily (per MCT result notes from JOHN). Updated medlist, script sent to pharmacy. Pt instructed to have TSH and reticulocyte count drawn within the next month. Labs ordered and faxed to [facility] in [place]. Will watch for results. Pt also has cMRI needing to be scheduled. I asked her to call back and schedule testing. She said she will do so now. Will watch for scheduling as well as lab results. TRICAL JOURNEYMAN * Telephone Encounter - Sheila Pacheco RN - 06/11/2022 9:02 AM ELECTRICAL JOURNEYMAN Reviewed labs. INR 1.0. Cr 1.10. Egfr 48 c/w stage 3 CKD. Hgb 10.7 c/w baseline anemia. May start apixaban--she should notify us if any sig. Bleeding. Regarding baseline anemia, may be secondary to CKD but at her convenience, would check TSH and reticulocyte count. Not urgent but would do in the same month or so. Please ensure a copy of the labs is sent to her PCP, saima. TRICAL JOURNEYMAN * Telephone Encounter - Ella Dunn - 06/06/2022 9:50 AM CST 06/05 labs are now in chart. TRICAL JOURNEYMAN * Telephone Encounter - Sheila Pacheco RN - 06/05/2022 2:45 PM ELECTRICAL JOURNEYMAN Spoke with pt who had labs re-drawn at [facility] today. Will request labs. TRICAL JOURNEYMAN * Telephone Encounter - Sheila Pacheco RN - 06/03/2022 11:12 AM ELECTRICAL JOURNEYMAN Spoke with pt to let her know they did not draw the labs ordered by Dr. Stafford and that she would need to go back to have them drawn again. She has transportation issues and is unsure when she can go.Educated pt on importance of baseline labs prior to starting apixaban which is important for strokeprevention d/t monitor showing a-fib. Pt verbalized understanding and said she will go this week. Will f/u in a couple of days. TRICAL JOURNEYMAN * Telephone Encounter - Sheila Pacheco RN - 05/30/2022 4:18 PM ELECTRICAL JOURNEYMAN Ella, please request CBC, CMP, and PT/INR from [facility] in [place]. Thank you! TRICAL JOURNEYMAN * Telephone Encounter - Sheila Pacheco RN - 05/30/2022 10:05 AM ELECTRICAL JOURNEYMAN Spoke to pt who says she had labs drawn Sunday 05/27 at [facility]. Will request results. TRICAL JOURNEYMAN * Addendum Note - Sheila Pacheco RN - 05/27/2022 9:22 AM CSTAddended by: SHEILA PACHECO on: 05/27/2022 09:22 AM Modules accepted: Orders TRICAL JOURNEYMAN * Telephone Encounter - Sheila Pacheco RN - 05/27/2022 9:22 AM ELECTRICAL JOURNEYMAN Lab orders faxed to [facility] in [place] [facility]. Will watch for results. TRICAL JOURNEYMAN * Telephone Encounter - Sami Stafford MD - 05/27/2022 8:41 AM ELECTRICAL JOURNEYMAN Her monitor showed approximately 30 seconds of afib along with 4 beats of NSVT. The minimum duration of afib associated with increased stroke risk is not well-defined. However, a recent paper by Lauren KWON, et al. In Circulation 2019 (https://www.ahajournals.org/doi/full/10.1161/CIRCULATIONAHA.119.816661) found that the minimum duration of afib associated with actionable stroke risk decreased for increasing [id number] score. Her [id number] score = 5 (age>75, female, HTN, CAD), for which there was an elevated stroke risk even in the absence of afib. Of note, she also had moderate LAE on recent echo performed at [facility]. Therefore, I would favor anticoagulation to reduce her stroke risk, if she is willing. I discussed risks (including serious, GI, intracranial, and fatal bleeding) and benefits of anticoagulation, and she is willing to start anticoagulation. Plan: Please check CBC, PT/INR, PTT, and CMP. (Labs to be drawn at [facility]). If these look fine, will start apixaban 5 mg bid. Stop aspirin and clopidogrel once started on apixaban. All her questions were answered to her satisfaction. TRICAL JOURNEYMAN * Telephone Encounter - Sheila Pacheco RN - 05/23/2022 12:36 PM ELECTRICAL JOURNEYMAN Spoke with pt who does not recall any symptoms. She has been feeling good. Instructed pt to call ifshe has any concerns, otherwise we will await full monitor results. TRICAL JOURNEYMAN * Telephone Encounter - Sheila Pacheco RN - 05/22/2022 3:51 PM ELECTRICAL JOURNEYMAN LMOR for pt to return call. TRICAL JOURNEYMAN * Telephone Encounter - Sheila Pacheco RN - 05/22/2022 10:28 AM ELECTRICAL JOURNEYMAN Received report from josé miguel of a-fib RVR with 4 beats v-tach on 05/18/22 at 9:50 PM. Will f/u with pt. TRICAL JOURNEYMAN documented in this encounter Plan of Treatment Scheduled Orders Name Type Priority Associated Diagnoses Orde r Schedule CBC with auto differential Lab Routine Palpitations Atrial fibrillation, unspecified type (HCC) Expected: 05/27/2022, Expires: 05/27/2023 Protime-INR Lab Routine Palpitations Atrial fibrillation, unspecified type (HCC) Expected: 05/27/2022, Expires: 05/27/2023 Comprehensive metabolic panel Lab Routine Palpitations Atrial fibrillation, unspecified type (HCC) Expected: 05/27/2022, Expires: 05/27/2023 TSH Lab Routine Palpitations Atrial fibrillation, unspecified type (HCC) Anemia, unspecified type Expected: 06/11/2022, Expires: 06/11/2023 Reticulocyte Count Lab Routine Palpitations Atrial fibrillation, unspecified type (HCC) Anemia, unspecified type Expected: 06/11/2022, Expires: 06/11/2023 documented as of this encounter Visit Diagnoses Diagnosis Palpitations- Primary Atrial fibrillation, unspecified type (HCC) Anemia, unspecified type documented in this encounter Discontinued Medications Medication Sig Discontinue Reason Start Date End Da te metoprolol XL (TOPROL-XL) 25 mg extended release tablet 0.5 tablets (12.5 mg total) daily Reorder 09/21/2012 06/11/2022 documented as of this encounter Care Teams Cannery Worker Relationship Specialty Start Date End Date Cristian Ling MD [address] [place] [address] PCP - General 10/16/16 documented as of this encounter
--- OUTSIDE RECORDS SUMMARY | 2024-06-12 03:59 | XMS_ITS | Encounter Summary ---
Author Organization [facility] Address [address] [facility] [address] [place] [address] Care Team Providers Care Sr. Director Product Management Name Role Phone Cirstian Ling MD Primary Care Prov ider Encounter Details Date Type Department Care Team (Late st Contact Info) Description 04/03/2022 Orders Only [facility] Cardiology [address] [place] [address] Archie Orellana MD [address] [place] [id number] Social History Tobacco Use Types Packs/Day Years [...] on file Legal Sex Female 7:12 AM BIOLOGY RESEARCH ASSISTANT Gender Identity Female 02/07/2021 4:33 PM [...] us Archie Orellana MD CV CARDIAC [facility] Final Result documented in this encounter Visit Diagnoses Not on filedocumented in this encounter Care Teams Sr. Director Product Management Relationship Specialty Start Date End Date Cristian Ling MD [address] [place] [address] PCP - General 10/16/16 documented as of this encounter
--- OUTSIDE RECORDS SUMMARY | 2024-06-12 03:59 | XMS_ITS | Encounter Summary ---
Author Organization [facility] Address [address] [place] [address] Phone Care Team Providers Care Co Founder And Chairman Name Role Phone Cristian Ling MD Primary Care Prov ider Encounter Details Date Type Department Care Team (Late st Contact Info) Description 12/05/2021 Telephone [facility] Cardiology [address] [facility] Advanced [facility] 8th [place] [address] [place] [address] Sami Stafford MD [address] [facility] [address] [place], [place] [id number] Social History Tobacco Use Types Packs/Day Years [...] on file Legal Sex Female 7:12 AM PLASTICS WORKER Gender Identity Female 02/07/2021 4:33 PM CDT Sexual Orientation Straight 02/07/2021 4: 33 PM CDT documented as of this encounter Ordered Prescriptions Prescription Sig Dispense Quantity Refills Last Filled Start Date End Date furosemide (LASIX) 20 mg tablet Take 1 tablet (20 mg total) by mouth daily as needed (leg swelling) 60 tablet 12/07/2021 12/30/2022 documented in this encounter Miscellaneous Notes * Telephone Encounter - Sami Stafford MD - 12/07/2021 5:58 PM CDT Spoke with her. She does not think she has a DVT--felt/looked different. She is now in assisted living facility (since 09/25)--eats the meals they prepare. Would start furosemide 20 mg daily prn for swelling to see if the swelling responds. If she develops any chest pain or shortness of breath, should go to the ED. Discussed with the patient. * Telephone Encounter - Deepali Jung RN - 12/05/2021 4:50 PM CDT 12/05- Spoke to pt, she said her left leg- you cannot see the ankle it is so swollen and her foot isswollen- shoes too tight and her leg itself is swollen and it hurts if you push on it. Denies any redness or discoloration. Started about 1 week or so ago. The right leg is a little swollen, but she has issues with her right leg and this is normal. She says both legs feel the same in temperature. Denies any numbness or tingling. She denies any extra salt or salty meals. Pt said one time this happened before but the swelling came and went and this time the swelling is not improving. Her swelling will improve slightly in the AM after sleeping. She says her wt is up about 10 lbs over the past few months- gradual wt gain. She denies any SOB. H&P states *chronic mild swelling in LE related to venous insufficiency and history of LE DVT with associated phlebitis- she cannot remember which leg but says this is nowhere near as bad Has not checked BP Confirmed meds: ASA 81 mg daily Atorvastatin 80 mg nightly Lisinopril 5 mg daily Metoprolol xl 12.5 mg daily * Telephone Encounter - Modesta Mixon - 12/05/2021 3:21 PM CDT Rivera Pt called, she states her left ankle and leg are swollen pt wants to know if there could be a problem please call. documented in this encounter Plan of Treatment Not on file documented as of this encounter Visit Diagnoses Not on filedocumented in this encounter Care Teams Co Founder And Chairman Relationship Specialty Start Date End Date Cristian Ling MD [address] [place] [address] PCP - General 10/16/16 documented as of this encounter
--- OUTSIDE RECORDS SUMMARY | 2024-06-12 03:59 | XMS_ITS | Encounter Summary ---
Author Organization [facility] Address [address] [place] [address] Phone Care Team Providers Care Test Equipment Mechanic Name Role Phone Cristian Ling MD Primary Care Prov ider Reason for Referral * Oncology (Routine) - Authorized Specialty Diagnoses / Procedures Referred By Contac t Referred To Contact Hematology Diagnoses Anemia, unspecified type Sami Stafford MD [address] [facility] [address] [place] [address] Phone: tel: fax: Katja Joe MD Phone: tel: fax: Referral ID Status Reason Start Date Expiration Date Visits Requested Visits Authorized [id number] Authorized Specialty Services Required 07/22/2022 09/29/2024 26 26 Question Answer Please select the performing region: [facility] (All Locations) [[id number]] Please select the performing department: [facility] HEM [facility] 8B [[id number]] # of visits: [address] Stafford: recommend hematology eval for opinion whether this is explained by her CKD or if there is another process contributing to low production of RBCs. BILITATION CASE COORDINATOR Encounter Details Date Type Department Care Team (Late st Contact Info) Description 07/10/2022 Telephone [facility] [address] [facility] 8th [place] [address] [place] [address] Sami Stafford MD [address] [facility] [address] [place] [address] Social History Tobacco Use Types Packs/Day Years [...] on file Legal Sex Female 7:12 AM REHABILITATION CASE COORDINATOR Gender Identity Female 02/07/2021 4:33 PM CDT Sexual Orientation Straight 02/07/2021 4: 33 PM CDT documented as of this encounter Miscellaneous Notes * Addendum Note - Sheila Pacheco RN - 07/22/2022 3:51 PM CSTAddended by: SHEILA PACHECO on: 07/22/2022 03:51 PM Modules accepted: Orders BILITATION CASE COORDINATOR * Telephone Encounter - Sheila Pacheco RN - 07/22/2022 3:50 PM REHABILITATION CASE COORDINATOR Spoke with pt to relay results/recs from Dr. Stafford. Pt amenable to plan. Amb ref to hematology placed. Will watch for scheduling. BILITATION CASE COORDINATOR * Telephone Encounter - Sami Stafford MD - 07/22/2022 3:24 PM REHABILITATION CASE COORDINATOR Given her anemia with hgb 10.7 and low reticulocyte count, indicating low production of RBCs, recommend hematology eval for opinion whether this is explained by her CKD or if there is another processcontributing to low production of RBCs. BILITATION CASE COORDINATOR * Telephone Encounter - Sheila Pacheco RN - 07/22/2022 8:58 AM REHABILITATION CASE COORDINATOR Images from the original note were not included. BILITATION CASE COORDINATOR * Telephone Encounter - Suki Doe RN - 07/19/2022 4:32 PM CST Labs forwarded to Dr Stafford under cc'd BILITATION CASE COORDINATOR * Telephone [place] - Suki Doe RN - 07/19/2022 8:55 AM CST No results BILITATION CASE COORDINATOR * Telephone Encounter - Sheila Pacheco RN - 07/18/2022 3:49 PM REHABILITATION CASE COORDINATOR Noted. Will watch for results. BILITATION CASE COORDINATOR * Telephone Sheila Nunez RN - 07/17/2022 3:22 PM REHABILITATION CASE COORDINATOR LMOR for pt with lab work reminder. BILITATION CASE COORDINATOR * Telephone Sheila Nunez RN - 07/10/2022 12:59 PM REHABILITATION CASE COORDINATOR Spoke with pt to remind her of lab work due. I refaxed the orders to [facility] in [place]. She said she will have them drawn next Friday. Will f/u for results. BILITATION CASE COORDINATOR * Telephone Encounter - Sheila Pacheco RN - 07/10/2022 10:44 AM REHABILITATION CASE COORDINATOR Pt to have TSH and retics drawn at [place] in [place] within the next month. Results? (06/11/2022) BILITATION CASE COORDINATOR documented in this encounter Plan of Treatment Scheduled Referrals Name Type Priority Associated Diagnoses Orde r Schedule Ambulatory referral to Hematology Outpatient Referral Routine Anemia, unspecified type Expected: 08/05/2022 (Approximate), Expires: 07/22/2023 documented as of this encounter Visit Diagnoses Diagnosis Anemia, unspecified type- Primary documented in this encounter Care Teams Test Equipment Mechanic Relationship Specialty Start Date End Date Cristian Ling MD [address] [place] [address] PCP - General 10/16/16 documented as of this encounter
--- OUTSIDE RECORDS SUMMARY | 2024-06-12 03:59 | XMS_ITS | Encounter Summary ---
Author Organization [facility] Address [address] [place] [address] Phone Care Team Providers Care Advertising Specialist Name Role Phone Cristian Ling MD Primary Care Prov ider Encounter Details Date Type Department Care Team (Latest Contact Info) Description 04/02/2022 Orders Only [facility] Scanning, Provider [...] on file Legal Sex Female 7:12 AM CLEANERS Gender Identity Female 02/07/2021 4:33 PM CDT Sexual Orientation Straight 02/07/2021 4: 33 PM CDT documented as of this encounter Plan of Treatment Not on file documented as of this encounter Procedures Procedure Name Priority Date/Time Associated Diagnosis Comments CARDIOLOGY DOCUMENT SCAN 04/02/2022 documented in this encounter Results * CARDIOLOGY DOCUMENT SCAN (04/02/2022) Anatomical Region Laterality Modality Other Provider Scanning CV CARDIAC SERVICES PROCEDURES Final Result documented in this encounter Visit Diagnoses Not on filedocumented in this encounter Care Teams Advertising Specialist Relationship Specialty Start Date End Date Cristian Ling MD [address] [place] [address] PCP - General 10/16/16 documented as of this encounter
--- OUTSIDE RECORDS SUMMARY | 2024-06-12 03:59 | XMS_ITS | Encounter Summary ---
Author Organization [facility] Address [address] [place] [address] Phone Care Team Providers Care Ehs Specialist Name Role Phone Cristian Ling MD Primary Care Prov ider Reason for Referral * Diagnostic Imaging (Routine) - Closed Specialty Diagnoses / Procedures Referred By Contac t Referred To Contact Diagnoses Right hip pain Primary osteoarthritis of right hip Procedures FL Fluoro Guided Injection Hip Right Jamari Rodríguez MD [address] [facility] [facility] [address] [place] [address] Phone: tel: fax: [facility] [address] [place] [address] Referral ID Status Reason Start Date Expiration Date Visits Re quested Visits Authorized [id number] Closed 03/26/2022 04/25/2023 1 1 Reason for Visit * Reason Comments Pain Pain Pain * Consultation (Routine) - Closed Specialty Diagnoses / Procedures Referred By Contact Referred To Contact Physical Medicine and Rehabilitation Diagnoses Right hip pain Maxx Pratt MD Phone: tel: fax: Jamari Rodríguez MD [address] [facility] [address] [place] [address] Phone: tel: fax: Referral ID Status Reason Start Date Expiration Date V isits Requested Visits Authorized [id number] Closed Specialty Services Required 11/28/2021 12/28/2022 1 1 Encounter Details Date Type Department Care Team (Latest Contact Info) Description 03/26/2022 9:30 AM CDT Office Visit [facility] Orthopaedic Surgery [address] [facility] 2nd [address] [place] [id number] Jamari Rodríguez MD [address] [facility] [address] [place] [address] Right hip pain (Primary Dx); Primary osteoarthritis of right hip; Other osteoporosis without current pathological fracture Social History Tobacco Use Types Packs/Day Years [...] on file Legal Sex Female 7:12 AM 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 I recommend: Intra-articular right injection under fluoroscopy guidance, anesthetic and steroid. Repeat bone density testing as it has been greater than a year, order provided for her to schedule at the same facility she had her last test done. Follow-up with Dr. Pollard for either treatment or referral consultation to address osteoporosis appropriately for her. Further recommendations pending outcome of injection. We discussed the likely role for surgical consultation. Her son had surgery by Dr. Ott in the past. documented in this encounter Progress Notes * Jamari Rodríguez MD - 03/26/2022 9:30 AM CDT NEW PATIENT VISIT CHIEF COMPLAINT: Chief Complaint Patient presents with Right Hip - Pain Lower Back - Pain Right Leg - Pain HISTORY OF PRESENT ILLNESS: Tiera Lobato is a 76 y.o. female who presents to the office today for evaluation of the above-stated chief complaint. Primary pain is really localized to her right hip/anterior inguinal regionwith referral into her thigh. She occasionally experiences aching pain below the knee less prominent. She does not identify event or trauma to toby onset, symptoms have been present for over 2 years.Pain is sharp to burning and aching in nature, severe at worst. Symptoms are aggravated with walking, sitting and standing. She confirms slow start-up after period of immobility. She has difficulty with stairs using a hand rail and 1 step at a time. She has difficulty getting in and out of a car, donning and doffing shoes and socks. She has received lumbar injections that have not helpful. She consulted with Dr. Fidel griffin who referred her to our service for further evaluation and treatmentguidance. PAST MEDICAL HISTORY: She has a past medical history of Acid reflux, Heart murmur, High cholesterol, History of blood clots (), History of FL (myocardial infarction) (2012), History of vertebral fracture (2018), HTN (hypertension), IBS (irritable bowel syndrome), and Vertigo. PAST SURGICAL HISTORY: She has a past surgical history that includes Coronary artery bypass graft (2012); Colon surgery (1992); microdiscectomy (1998); and Total knee arthroplasty (Right, 2018). INITIAL REVIEW OF MEDICATIONS: She has a current medication list which includes the following prescription(s): acetaminophen (TYLENOL), alendronate (FOSAMAX), aspirin, atorvastatin (LIPITOR), calcium carbonate-vitamin d3, medical cannabis, cholecalciferol (VITAMIN D-3), cyanocobalamin (VITAMIN B-12), diclofenac dr (VOLTAREN), docusate sodium (COLACE), ezetimibe (ZETIA), furosemide (LASIX), gabapentin (NEURONTIN), linzess, lisinopril (PRINIVIL,ZESTRIL), metoprolol xl (TOPROL-XL), multivitamin no.44-vit d3-k, omeprazole (PRILOSEC), and sertraline (ZOLOFT). DRUG ALLERGIES: She is allergic to codeine, latex, and tramadol. SOCIAL HISTORY: She reports that she has never smoked. She has never used smokeless tobacco. She reports current drug use. Drug: Medical marijuana. Patient denies consuming alcoholic drinks. FAMILY HISTORY: She family history includes Hypertension in her child; Prostate cancer in her father; Stroke in herchild. PHYSICAL EXAM: On examination today, the patient is awake, alert, and appropriate, in no apparent distress. Breathing is regular and non-labored, hearing is intact to spoken words. Lower extremities are without swelling or edema, and visualized skin is intact. Sensibility light touch subjectively intact in lower extremities and there are no focal motor deficits affecting lower extremities. She transfers [id number] with deliberation. She exhibits slow start-up with decreased stance time on the right. Lumbar range of motion is mildly provocative of pain in flexion and extension. Seated straight leg raise onthe right is provocative inguinal hip pain. Passive right hip range of motion is limited both at neutral, flexion to greater than 60??, limited FADIR, WARREN. Inguinal region is soft and without significant tenderness to palpation. There is no significant axial spine or bony posterior pelvic tenderness to palpation. REVIEW OF X-RAYS/STUDIES: Pelvis and hip x-rays completed in November of this year, 4 months ago are reviewed: Severe right hip osteoarthritis. Bone density testing from January 2021 reports T-scores of-2.5 consistent with osteoporosis. IMPRESSION/DIAGNOSIS: Radiographically severe symptomatic right hip osteoarthritis complicated by osteoporosis. TREATMENT PLAN: We discussed things in detail today. I recommend: Intra-articular right injection under fluoroscopy guidance, anesthetic and steroid. Repeat bone density testing as it has been greater than a year, order provided for her to schedule at the same facility she had her last test done. Follow-up with Dr. Pollard for either treatment or referral consultation to address osteoporosis appropriately for her. Further recommendations pending outcome of injection. We discussed the likely role for surgical consultation. Her son had surgery by Dr. Ott in the past. The rational for all recommendations, as well as relevant risks, are discussed with the patient in detail. The patient expresses understanding, comfort and agreement with the plan, all questions are answered. No orders of the defined types were placed in this encounter. This note was dictated using My[employer]Work software. This note was not read in detail; therefore, variances and inaccuracies may occur. Jamari Del Rio MD [facility] Physical Medicine and Rehabilitation [facility] Orthopedics documented in this encounter Plan of Treatment Not on file documented as of this encounter Results * FL Fluoro Guided Injection Hip Right (05/16/2022 2:31 PM INSTALLATION & MAINTENANCE EXECUTIVE) Narrative [facility] - 05/16/2022 2:31 PM INSTALLATION & MAINTENANCE EXECUTIVE The images from this study are not interpreted by Radiology. ??Please refer to the physician's procedure / OR operative note. Jamari Rodríguez MD IMG FLUOROSCOPY PROCEDURES Final Result [facility] documented in this encounter Visit Diagnoses Diagnosis Right hip pain- Primary Pain in joint, pelvic region and thigh Primary osteoarthritis of right hip Other osteoporosis without current pathological fracture Right hip pain Pain in joint, pelvic region and thigh Primary osteoarthritis of right hip Low back pain, unspecified back pain laterality, unspecified chronicity, unspecified whether sciatica present documented in this encounter Orders Outpatient Referral Count Last Ordered Date st Ordered Date AMB REFERRAL TO ORTHOPEDIC PHYSIATRY 03/16 documented in this encounter Care Teams Ehs Specialist Relationship Specialty Start Date End Date Cristian Ling MD [address] [place] [address] PCP - General 10/16/16 documented as of this encounter
--- OUTSIDE RECORDS SUMMARY | 2024-06-12 03:59 | XMS_ITS | Encounter Summary ---
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 [address] [facility]. [address], [address] If you have any financial questions please call [phone] If you need to cancel or reschedule your appointment please call [phone] Ask them the covid screening questions Have [...] connect the patient with Beba Busch, the application coordinator at [phone]. If a direct number is requested by the patient please give them [phone]. documented in this encounter Plan of Treatment Not on file documented as of this encounter Visit Diagnoses Not on filedocumented in this encounter Care Teams Icing Coater Relationship Specialty Start Date End Date Cristian Ling MD [address] [place] [address] PCP - General 10/16/16 documented as of this encounter
--- OUTSIDE RECORDS SUMMARY | 2024-06-12 03:59 | XMS_ITS | Encounter Summary ---
Author Organization [facility] Address [address] [place] [address] Phone Care Team Providers Care Weight Loss Consultant Name Role Phone Cristian Ling MD Primary Care Prov ider Encounter Details Date Type Department Care Team (Late st Contact Info) Description 05/13/2022 Telephone [facility] Cardiology [address] [facility] 8th [place] [address] [place] [address] Sami Stafford MD [address] [facility] [address] [place], [place] [id number] Social History Tobacco Use Types Packs/Day Years [...] file Legal Sex Female 7:12 AM SUPERVISOR OF INSTRUCTION Gender Identity Female 02/07/2021 4:33 PM CDT Sexual Orientation Straight 02/07/2021 4: 33 PM CDT documented as of this encounter Miscellaneous Notes * Telephone Encounter - Sheila Solomon RN - 05/13/2022 1:22 PM SUPERVISOR OF INSTRUCTION Received alert from aj that pt monitor was not transmitting data, asked our office to contact pt to reach out to aj. Spoke with Jaz who is going to call Aj to troubleshoot her monitor. RVISOR OF INSTRUCTION documented in this encounter Plan of Treatment Not on file documented as of this encounter Visit Diagnoses Not on filedocumented in this encounter Care Teams Weight Loss Consultant Relationship Specialty Start Date End Date Cristian Ling MD [address] [place] [address] PCP - General 10/16/16 documented as of this encounter
--- OUTSIDE RECORDS SUMMARY | 2024-06-12 03:59 | XMS_ITS | Encounter Summary ---
Author Organization [facility] Address [address] [place] [address] Phone Care Team Providers Care Ssis Architect Name Role Phone Cristian Ling MD Primary Care Prov ider Reason for Visit * Reason Onset Date Comments [facility] scheduling 05/15/2022 Encounter Details Date Type Department Care Team (Late st Contact Info) Description 05/15/2022 Telephone [facility] Cardiology [address] [facility] 8th [place] [address] [place] [address] Sami Stafford MD [address] [facility] [address] [place] [address] [facility] scheduling Social History Tobacco Use Types Packs/Day Years [...] on file Legal Sex Female 7:12 AM METER REPAIRER HELPER Gender Identity Female 02/07/2021 4:33 PM CDT Sexual Orientation Straight 02/07/2021 4: 33 PM CDT documented as of this encounter Miscellaneous Notes * Telephone Encounter - Sheila Solomon RN - 06/12/2022 9:10 AM METER REPAIRER HELPER cMRI scheduled 07/25/22. R REPAIRER HELPER * Telephone Encounter - Sydney Adam - 05/17/2022 8:17 AM CST Pt was contacted by phone regarding scheduling [facility] and letter was mailed. [facility] has not yet been scheduled. R REPAIRER HELPER * Telephone Encounter - Norma Landry - 05/15/2022 2:45 PM METER REPAIRER HELPER Per note on order-we Called and LMOR on 05/07/22. I just sent UTR letter today R REPAIRER HELPER * Telephone Encounter - Sheila Solomon RN - 05/15/2022 8:45 AM METER REPAIRER HELPER OV 05/01 cardiac MRI ordered. Scheduled? R REPAIRER HELPER documented in this encounter Plan of Treatment Not on file documented as of this encounter Visit Diagnoses Not on filedocumented in this encounter Care Teams Ssis Architect Relationship Specialty Start Date End Date Cristian Ling MD [address] [place] [address] PCP - General 10/16/16 documented as of this encounter
--- OUTSIDE RECORDS SUMMARY | 2024-06-12 03:59 | XMS_ITS | Encounter Summary ---
Author Organization [facility] Address [address] [place] [address] Phone Care Team Providers Care Gas Pumping Station Operator Name Role Phone Cristian Ling MD Primary Care Prov ider Reason for Visit * Reason Onset Date Comments Med Refill 05/01/2022 Encounter Details Date Type Department Care Team (Late st Contact Info) Description 05/01/2022 Telephone [facility] Cardiology [address] [facility] 8th [place] [address] [place] [address] Sami Stafford MD [address] [facility] [address] [place] [address] Med Refill Social History Tobacco [...] on file Legal Sex Female 7:12 AM LAMP TESTER AND INSPECTOR Gender Identity Female 02/07/2021 4:33 PM CDT Sexual Orientation Straight 02/07/2021 4: 33 PM CDT documented as of this encounter Miscellaneous Notes * Telephone Encounter - Sheila Solomon RN - 05/01/2022 2:00 PM LAMP TESTER AND INSPECTOR Spoke with Farzaneh at [facility] to confirm patient is to stop Brilinta and start clopidogrel. TESTER AND INSPECTOR * Telephone Encounter - Ella Dunn - 05/01/2022 1:45 PM CST Images from the original note were not included. TESTER AND INSPECTOR documented in this encounter Plan of Treatment Not on file documented as of this encounter Visit Diagnoses Not on filedocumented in this encounter Care Teams Gas Pumping Station Operator Relationship Specialty Start Date End Date Cristian Ling MD [address] [place] [address] PCP - General 10/16/16 documented as of this encounter
--- OUTSIDE RECORDS SUMMARY | 2024-06-12 03:59 | XMS_ITS | Encounter Summary ---
Author Organization [facility] Healthcare Address [address] [place] [address] Care Team Providers Care Payroll And Benefits Assistant Name Role Phone Cristian Ling MD Primary Care Prov ider Encounter Details Date Type Department Care Team (Latest Contact Info) Description 04/15/2022 8:41 AM CDT - 04/15/2022 8:48 AM CDT Hospital Encounter [facility] [address] [place] [phone] Discharge Disposition: Discharge to home or self [...] file Legal Sex Female 7:12 AM RETAIL MANAGEMENT TRAINEE Gender Identity Female 02/07/2021 4:33 PM CDT [...] Procedure Name Priority Date/Time Associated Diagnosis Comments US TRANSFER OF OUTSIDE FILMS Routine 04/15/2022 8:41 AM CDT Diagnosis unknown documented in this encounter Results * US Outside Reference (04/15/2022 8:41 AM CDT) Impressions [facility] - 04/15/2022 8:41 AM CDT These images are for Reference purposes only and have not been reviewed by [facility] Radiology. ??There will be no report generated by a [facility] Radiologist. Narrative [facility] - 04/15/2022 8:41 AM CDT EXAMINATION: ??Images For Reference Purposes Only us Sami Stafford MD IMG US PROCEDURES Final Resul t [facility] documented in this encounter Visit Diagnoses Not on filedocumented in this encounter Care Teams Payroll And Benefits Assistant Relationship Specialty Start Date End Date Cristian Ling MD [address] [place] [address] PCP - General 10/16/16 documented as of this encounter
--- OUTSIDE RECORDS SUMMARY | 2024-06-12 03:59 | XMS_ITS | Encounter Summary ---
Author Organization [facility] Healthcare Address [address] [place] [address] Care Team Providers Care Nut Sheller Name Role Phone Cristian Ling MD Primary Care Prov ider Encounter Details Date Type Department Care Team (Late st Contact Info) Description 05/01/2022 1:00 PM PHYSICIAN'S ASSISTANT Lab [facility] Advanced Medicine [facility] ([facility]) [address] [place] [phone] Primary hypertension Social History Tobacco Use Types Packs/Day Years [...] on file Legal Sex Female 7:12 AM PHYSICIAN'S ASSISTANT Gender Identity Female 02/07/2021 4:33 PM CDT Sexual Orientation Straight 02/07/2021 4: 33 PM CDT documented as of this encounter Plan of Treatment Not on file documented as of this encounter Procedures Procedure Name Priority Date/Time Associated Diagnosis Comments EGFR Routine 05/01/2022 12:58 PM PHYSICIAN'S ASSISTANT Primary hypertension BASIC METABOLIC PANEL Routine 05/01/2022 12:58 PM PHYSICIAN'S ASSISTANT Primary hypertension documented in this encounter Results * (ABNORMAL) eGFR (05/01/2022 12:58 PM PHYSICIAN'S ASSISTANT) Pathologist [facility] eGFR 45(L) 90 - 130 mL/min/1. 73 m2 [facility] Comment: Interpretive Data Reference Interval Normal ?>/= [...] interpretive data was last reviewed 2021. Blood 05/01/2022 12:5 8 PM PHYSICIAN'S ASSISTANT 05/01/2022 1:13 PM PHYSICIAN'S ASSISTANT us Sami Stafford MD LAB BLOOD ORDERABLES Final Re sult [facility] Department [place] [address] * (ABNORMAL) Basic metabolic panel (05/01/2022 12:58 PM PHYSICIAN'S ASSISTANT) Sodium 140 135 - 145 mmol/L [facility] Potassium, pl 4.2 3.3 - 4.9 mmol/L [facility] Chloride 105 97 - 110 mmol/L [facility] CO2 27 22 - 32 mmol/L [facility] Anion gap 8 2 - 15 mmol/L [facility] BUN 17 8 - 25 mg/dL [facility] Creatinine 1.25(H) 0.60 - 1.10 mg/dL [facility] Glucose 87 70 - 199 mg/dL [facility] Comment: Interpretive Data Fasting glucose [...] classification and Diagnosis of Diabetes Diabetes Care 2017;40 (Suppl. 1):S11. Current interpretive data was last revised 2017. Calcium 10.7(H) 8.5 - 10.3 mg/dL [facility] Blood 05/01/2022 12:5 8 PM PHYSICIAN'S ASSISTANT 05/01/2022 1:13 PM PHYSICIAN'S ASSISTANT us Sami Stafford MD LAB BLOOD ORDERABLES Final Re sult [facility] Department [place] [address] documented in this encounter Visit Diagnoses Diagnosis Primary hypertension Unspecified essential hypertension documented in this encounter Care Teams Nut Sheller Relationship Specialty Start Date End Date Cristian Ling MD [address] [place] [address] PCP - General 10/16/16 documented as of this encounter
--- OUTSIDE RECORDS SUMMARY | 2024-06-12 03:59 | XMS_ITS | Encounter Summary ---
Author Organization [facility] Medical Group Address [address] [place] [address] Care Team Providers Care University Librarian Name Role Phone Cristain Ling MD Primary Care Prov ider Encounter Details Date Type Department Care Team (Late st Contact Info) Description 11/22/2021 Orders Only [facility] [address] [place] [address] Maxx Pratt MD [address] [facility] [address] [place] [address] Hip pain (Primary Dx) Social History Tobacco Use [...] file Legal Sex Female 7:12 AM CLINICAL DOCUMENT IMPROVEMENT EDUCATOR Gender Identity Female 02/07/2021 4:33 PM CDT Sexual Orientation Straight 02/07/2021 4: 33 PM CDT documented as of this encounter Plan of Treatment Not on file documented as of this encounter Visit Diagnoses Diagnosis Hip pain- Primary Pain in joint, pelvic region and thigh documented in this encounter Care Teams University Librarian Relationship Specialty Start Date End Date Cristian Ling MD [address] [place] [address] PCP - General 10/16/16 documented as of this encounter
--- OUTSIDE RECORDS SUMMARY | 2024-06-12 03:59 | XMS_ITS | Encounter Summary ---
Author Organization [facility] Healthcare Address [address] [place] [address] Care Team Providers Care Hooker Inspector Name Role Phone Cristian Ling MD Primary Care Prov ider Encounter Details Date Type Department Care Team (Latest Contact Info) Description 04/15/2022 8:49 AM CDT - 04/15/2022 11:59 PM CDT Hospital Encounter [facility] Rad[facility] [address] [place] [phone] Discharge Disposition: Discharge to home or self [...] on file Legal Sex Female 7:12 AM DIECAST MACHINE OPERATOR Gender Identity Female 02/07/2021 4:33 [...] US TRANSFER OF OUTSIDE FILMS Routine 04/15/2022 8:49 AM CDT Diagnosis unknown documented in this encounter Results * US Outside Reference (04/15/2022 8:49 AM CDT) Impressions [facility] - 04/15/2022 8:49 AM CDT These images are for Reference purposes only and have not been reviewed by [facility]. ??There will be no report generated by a [facility] Radiologist. Narrative [facility] - 04/15/2022 8:49 AM CDT EXAMINATION: ??Images For Reference Purposes Only us Sami Stafford MD IMG US PROCEDURES Final Resul t [facility] documented in this encounter Visit Diagnoses Not on filedocumented in this encounter Care Teams Hooker Inspector Relationship Specialty Start Date End Date Cristian Ling MD [address] [place] [address] PCP - General 10/16/16 documented as of this encounter
--- OUTSIDE RECORDS SUMMARY | 2024-06-12 03:59 | XMS_ITS | Encounter Summary ---
Author Organization [facility] Address [address] [place] [address] Phone Care Team Providers Care Bed Bug Exterminator Name Role Phone Cristian Ling MD Primary Care Prov ider Encounter Details Date Type Department Care Team (Late st Contact Info) Description 08/01/2022 Telephone [facility] Cardiology [address] [facility] 8[address] [place] [address] [place] [address] Sami Stafford MD [address] [facility] [address] [place], [place] [id number] Social History Tobacco Use Types Packs/Day Years [...] on file Legal Sex Female 7:12 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 Stafford's result notes. ET SERVER * Telephone Encounter - Sheila Solomon RN - 08/01/2022 8:59 AM BUFFET SERVER Spoke with pt who requested I mail her a copy of her MRI report as well as the information from on why she is being referred to hematology. I told pt I would mail her the MRI report and a letter with info about referral today. ET SERVER * Telephone Encounter - Clara Sanchez - 08/01/2022 8:34 AM CST Rivera Pt req a return call to discuss her MRI. Pt has questions. ET SERVER documented in this encounter Plan of Treatment Not on file documented as of this encounter Visit Diagnoses Not on filedocumented in this encounter Care Teams Bed Bug Exterminator Relationship Specialty Start Date End Date Cristian Ling MD [address] [place] [address] PCP - General 10/16/16 documented as of this encounter
--- OUTSIDE RECORDS SUMMARY | 2024-06-12 03:59 | XMS_ITS | Encounter Summary ---
Author Organization [facility] Address [address] [place] [address] Phone Care Team Providers Care Machine Mover Name Role Phone Cristian Ling MD Primary Care Prov ider Encounter Details Date Type Department Care Team (Late st Contact Info) Description 03/28/2022 Telephone [facility] Orthopaedic Surgery [address] [place] [address] Jamari Rodríguez MD [address] [facility] 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 * Telephone Encounter - Storm Cohen - 03/28/2022 10:03 AM CDT Pt requesting call, asking if she shoulder have bone test prior to INJ. Pt is at [phone]. documented in this encounter Plan of Treatment Not on file documented as of this encounter Visit Diagnoses Not on filedocumented in this encounter Care Teams Machine Mover Relationship Specialty Start Date End Date Cristian Ling MD [address] [place] [address] PCP - General 10/16/16 documented as of this encounter
--- OUTSIDE RECORDS SUMMARY | 2024-06-12 03:59 | XMS_ITS | Encounter Summary ---
Author Organization [facility] Medical Group Address [address] [place] [address] Care Team Providers Care Manager Of Selection And Assessment Name Role Phone Cristian Ling MD Primary Care Prov ider Encounter Details Date Type Department Care Team (Late st Contact Info) Description 04/02/2022 Orders Only [facility] Medical Group Cardiology [address] [place] [address] Archie Orellana MD [address] [place] [id number] Social History Tobacco Use Types Packs/Day Years [...] file Legal Sex Female 7:12 AM DIRECTOR UTILIZATION MANAGEMENT Gender Identity Female 02/07/2021 4:33 PM CDT Sexual Orientation Straight 02/07/2021 4: 33 PM CDT documented as of this encounter Plan of Treatment Not on file documented as of this encounter Procedures Procedure Name Priority Date/Time Associated Diagnosis Comments CARDIOLOGY DOCUMENT SCAN Routine 04/02/2022 documented in this encounter Results * Cardiology Document Scan (04/02/2022) Anatomical Region Laterality Modality Other us Archie Orellana MD CV CARDIAC SERVICES [facility] Final Result documented in this encounter Visit Diagnoses Not on filedocumented in this encounter Care Teams Manager Of Selection And Assessment Relationship Specialty Start Date End Date Cristian Ling MD [address] [place] [address] PCP - General 10/16/16 documented as of this encounter
--- OUTSIDE RECORDS SUMMARY | 2024-06-12 03:59 | XMS_ITS | Encounter Summary ---
Author Organization [facility] Address [address] [place] [address] Phone Care Team Providers Care Stock Blender Name Role Phone Cristian Ling MD Primary Care Prov ider Encounter Details Date Type Department Care Team (Latest Contact Info) Description 05/27/2022 Orders Only [facility] Scanning, Provider [...] on file Legal Sex Female 7:12 AM NAILHEAD PUNCHER Gender Identity Female 02/07/2021 4:33 PM CDT Sexual Orientation Straight 02/07/2021 4: 33 PM CDT documented as of this encounter Plan of Treatment Not on file documented as of this encounter Procedures Procedure Name Priority Date/Time Associated Diagnosis Comments SCAN - LABS 05/27/2022 documented in this encounter Results * SCAN - LABS (05/27/2022) us Provider Scanning Final Result documented in this encounter Visit Diagnoses Not on filedocumented in this encounter Care Teams Stock Blender Relationship Specialty Start Date End Date Cristian Ling MD [address] [place] [address] PCP - General 10/16/16 documented as of this encounter
--- OUTSIDE RECORDS SUMMARY | 2024-06-12 03:59 | XMS_ITS | Encounter Summary ---
Author Organization [facility] Healthcare Address [address] [place] [address] Care Team Providers Care Director Patient Name Role Phone Cristian Ling MD Primary Care Prov ider Encounter Details Date Type Department Care Team (Latest Contact Info) Description 03/26/2022 10:39 AM CDT - 03/26/2022 11:59 PM CDT Hospital Encounter [facility] Radiology [facility] [address] [place] [phone] Discharge Disposition: Discharge to home or self [...] on file Legal Sex Female 7:12 AM EVP HEAD OF [employer] EXPERIENCE STRATEGY Gender Identity Female 02/07/2021 4:33 PM CDT [...] daily. 2 11/25/2017 03/21/2023 lisinopriL (PRINIVIL,ZESTRIL ) 5 mg tablet TAKE 1 TABLET BY MOUTH EVERY DAY 90 tablet 3 06/27/2021 04/08/2022 metoprolol XL (TOPROL-XL) 25 mg extended release [...] Procedure Name Priority Date/Time Associated Diagnosis Comments NEURO CT MR OUTSIDE REFERENCE Routine 03/26/2022 10:39 AM CDT Diagnosis unknown documented in this encounter Results * Neuro CT MR Outside Reference (03/26/2022 10:39 AM CDT) Impressions [facility] - 03/26/2022 10:39 AM CDT These images are for Reference purposes only and have not been reviewed by [facility] Radiology. ??There will be no report generated by a [facility] Radiologist. Narrative [facility] - 03/26/2022 10:39 AM CDT EXAMINATION: ??Images For Reference Purposes Only us Jamari Rodríguez MD IMG CT PROCEDURES Final Re sult [facility] documented in this encounter Visit Diagnoses Not on filedocumented in this encounter Care Teams Director Patient Relationship Specialty Start Date End Date Cristian Ling MD [address] [place] [address] PCP - General 10/16/16 documented as of this encounter
--- OUTSIDE RECORDS SUMMARY | 2024-06-12 03:59 | XMS_ITS | Encounter Summary ---
Author Organization 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 Gender Identity Female 02/07/2021 4:33 PM CDT Sexual Orientation Straight 02/07/2021 4: 33 PM CDT documented as of this encounter Plan of Treatment Not on file documented as of this encounter Procedures Procedure Name Priority Date/Time Associated Diagnosis Comments SCAN - LABS 07/19/2022 documented in this encounter Results * SCAN - LABS (07/19/2022) us Provider Scanning Final Result documented in this encounter Visit Diagnoses Not on filedocumented in this encounter Care Teams Financial Assistance Specialist Relationship Specialty Start Date End Date Cristian Ling MD [address] [place] [address] PCP - General 10/16/16 documented as of this encounter
--- OUTSIDE RECORDS SUMMARY | 2024-06-12 03:59 | XMS_ITS | Encounter Summary ---
Author Organization [facility] Healthcare Address [address] [place] [address] Care Team Providers Care Front Loader Residential Driver Name Role Phone Cristian Ling MD Primary Care Prov ider Reason for Visit * Diagnostic Imaging (Routine) - Closed Specialty Diagnoses / Procedures Referred By Paula cardona Referred To Contact Diagnoses Hip pain Procedures XR Hip Right 2 or 3 Views XR Hip Right 4 or More Views Maxx Pratt MD Phone: tel: fax: [address] [phone] Referral ID Status Reason Start Date Expiration Date Visits Re quested Visits Authorized [id number] Closed 11/22/2021 12/22/2022 1 1 Encounter Details Date Type Department Care Team (Latest Contact Info) Description 11/22/2021 2:56 PM CDT - 11/22/2021 11:59 PM CDT Hospital Encounter [facility] - Imaging [address] [place] [address] Hip pain Discharge Disposition: Discharge to home or [...] on file Legal 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 09/21/2012 03/21/2023 gabapentin (NEURONTIN) 100 mg capsule Take [...] Date/Time Associated Diagnosis Comments XR HIP RIGHT 2 OR 3 VIEWS Schedule Routine, Read Routine (OP Routine) 11/22/2021 3:23 PM CDT Hip pain documented in this encounter Results * XR Hip Right 2 or 3 Views (11/22/2021 3:23 PM CDT) Anatomical Region Laterality Modality Lower Extremities, Hip, Pelvis Right C omputed Radiography 11/22/2021 3:27 PM CDT Impressions 11/22/2021 3:27 PM CDT Advanced degenerative arthritic changes of the right hip joint. Electronically signed by: Parker Nur M.D. Narrative 11/22/2021 3:27 PM CDT Exam: XR HIP RIGHT 2 OR 3 VIEWS Date/Time of Exam: 11/22/2021 3:45 PM Reason For Exam: Right hip pain. Diagnosis: Hip pain [M25.559 (ICD-10-CM)] Findings: AP and frog-leg lateral projections of the right hip were obtained. ??These demonstrate diffusely decreased density throughout the bony structures. ??No acute fracture or dislocation. ??There is advanced arthritic narrowing of the right hip joint with reactive sclerosis and subchondral cystic change present in the femoral head and acetabulum. ??No lytic or blastic bony destructive changes. Degenerative arthritic changes are present in the lower lumbar spine. Mild degenerative changes are present in the right SI joint. Procedure Note Parker Nur MD - 11/22/2021 Exam: XR HIP RIGHT 2 OR 3 VIEWS Date/Time of Exam: 11/22/2021 3:45 PM Reason For Exam: Right hip pain. Diagnosis: Hip pain [M25.559 (ICD-10-CM)] Findings: AP and frog-leg lateral projections of the right hip were obtained. These demonstrate diffusely decreased density throughout the bony structures. No acute fracture or dislocation. There is advanced arthritic narrowing of the right hip joint with reactive sclerosis and subchondral cystic change present in the femoral head and acetabulum. No lytic or blastic bony destructive changes. Degenerative arthritic changes are present in the lower lumbar spine. Mild degenerative changes are present in the right SI joint. IMPRESSION: Advanced degenerative arthritic changes of the right hip joint. Electronically signed by: Parker Nur M.D. us Maxx Pratt MD IMG XR PROCEDURES Final Resul t documented in this encounter Visit Diagnoses Diagnosis Hip pain Pain in joint, pelvic region and thigh documented in this encounter Care Teams Front Loader Residential Driver Relationship Specialty Start Date End Date Cristian Ling MD [address] [place] [address] PCP - General 10/16/16 documented as of this encounter
--- OUTSIDE RECORDS SUMMARY | 2024-06-12 03:59 | XMS_ITS | Encounter Summary ---
Author Organization [facility] Address [address] [place] [address] Phone Care Team Providers Care Lockstitch Back Maker Name Role Phone Cristian Ling MD Primary Care Prov ider Encounter Details Date Type Department Care Team (Latest Contact Info) Description 05/10/2022 Orders Only [facility] Scanning, Provider [...] on file Legal Sex Female 7:12 AM THERAPEUTIC SPECIALIST Gender Identity Female 02/07/2021 4:33 PM CDT Sexual Orientation Straight 02/07/2021 4: 33 PM CDT documented as of this encounter Progress Notes * Sheila Solomon RN - 05/10/2022 11:59 PM CST See telephone encounter 05/13. APEUTIC SPECIALIST documented in this encounter Plan of Treatment Not on file documented as of this encounter Procedures Procedure Name Priority Date/Time Associated Diagnosis Comments CARDIOLOGY DOCUMENT SCAN 05/10/2022 documented in this encounter Results * CARDIOLOGY DOCUMENT SCAN (05/10/2022) Anatomical Region Laterality Modality Other us Provider Scanning CV CARDIAC SERVICES PROCEDURES Final Result documented in this encounter Visit Diagnoses Not on filedocumented in this encounter Care Teams Lockstitch Back Maker Relationship Specialty Start Date End Date Cristian Ling MD [address] [place] [address] PCP - General 10/16/16 documented as of this encounter
--- OUTSIDE RECORDS SUMMARY | 2024-06-12 03:59 | XMS_ITS | Encounter Summary ---
Author Organization [facility] Address [address] [place] [address] Phone Care Team Providers Care Warp Preparer Name Role Phone Cristian Ling MD Primary Care Prov ider Reason for Referral * MRI/CAT/PET Scan (Routine) - Closed Specialty Diagnoses / Procedures Referred By Paula t Referred To Contact Radiology Diagnoses Hypertrophic cardiomyopathy (CMS/HCC) (HCC) Palpitations Procedures MRI Cardiac M&F WO Contrast Cisco Bender MD [address] [address] Phone: tel: fax: [address] [phone] Referral ID Status Reason Start Date Expiration Date Visits Re quested Visits Authorized [id number] Closed 05/01/2022 05/31/2023 1 1 BOARD WORKER * Cardiology (Routine) - Closed Specialty Diagnoses / Procedures Referred By Contdeepali t Referred To Contact Diagnoses Palpitations Procedures MCT Mobile Cardiac Telemetry Event Monitor Cisco Bender MD [address] [address] Phone: tel: fax: [address] [phone] Referral ID Status Reason Start Date Expiration Date Visits Re quested Visits Authorized [id number] Closed 05/01/2022 05/31/2023 1 1 BOARD WORKER Reason for Visit * Consultation (Routine) - Closed Specialty Diagnoses / Procedures Referred By Contac t Referred To Contact Cardiology Diagnoses Chronic coronary artery disease Hx of CABG Primary hypertension Cisco Bender MD [address] [facility] [address] [place] [address] Phone: tel: fax: [facility] (All Locations) Referral ID Status Reason Start Date Expiration Date V isits Requested Visits Authorized [id number] Closed Specialty Services Required 11/25/2022 11/27/2023 12 12 Encounter Details Date Type Department Care Team (Late st Contact Info) Description 05/01/2022 10:45 AM DROP BOARD WORKER Office Visit [facility] Cardiology [address] [place] [address] Medicine 8th [place] [address] [place] [address] Cisco Bender MD [address] [address] Chronic coronary artery disease (Primary Dx); Hx of CABG; Primary hypertension; Hypertrophic cardiomyopathy (CMS/HCC) (HCC); Palpitations Social History Tobacco Use Types Packs/Day Years [...] on file Legal Sex Female 7:12 AM DROP BOARD WORKER Gender Identity Female 02/07/2021 4:33 PM CDT Sexual Orientation Straight 02/07/2021 4: 33 PM CDT documented as of this encounter Last Filed Vital Signs Vital Sign Reading Time Taken Comments Blood Pressure 116/72 05/01/2022 11:23 AM DROP BOARD WORKER Pulse 60 05/01/2022 11:23 AM DROP BOARD WORKER Temperature - - Respiratory Rate - - Oxygen Saturation 97% 05/01/2022 11:23 AM DROP BOARD WORKER Inhaled Oxygen Concentration - - Weight 79.8 kg (176 lb) 05/01/2022 11:23 AM DROP BOARD WORKER Height - - Body Mass Index 31.18 09/28/2020 1:48 PM CDT documented in this encounter Patient Instructions * Patient Instructions* Cisco Bender MD - 05/01/2022 10:45 AM DROP BOARD WORKER Stop ticagrelor (Brillinta). Substitute clopidogrel 75 mg once daily. Let me know if you have any bleeding issues. Let me know if you have more chest pain. Cardiac MRI to evaluate for apical hypertrophic cardiomyopathy. [email or web address] 30-day monitor to screen for arrhythmias. Check your blood pressure when you feel lightheaded. Monitor your blood pressure 2 times daily (morning before medications, evening before dinner) for 1week, then send/call with the readings. Date: AM PM BOARD WORKER BOARD WORKER BOARD WORKER BOARD WORKER documented in this encounter Ordered Prescriptions Prescription Sig Dispense Quantity Refills Last Filled Start Date End Date clopidogreL (PLAVIX) 75 mg tablet Take 1 tablet (75 mg total) by mouth daily 90 tablet 3 05/01/2022 08/20/2023 documented in this encounter Progress Notes * Cisco Bender MD - 05/01/2022 10:45 AM CST Images from the original note were not included. Department of Medicine Cisco Bender MD, MPHS, [facility] Cardiovascular Division train conductor Patient Name: Tiera Lobato : 1945 Date of Service: 05/01/2022 DIAGNOSES: 1. Coronary artery disease with myocardial infarction in August 2012 followed by bypass surgery by Dr. Irineo Reinoso with LAWSON to LAD and saphenous vein graft to obtuse marginal. 2. Hypertension. 3. Degenerative disc disease. 4. History of diverticulitis. 5. History of vertigo. 6. History of lower extremity DVT with associated phlebitis in the distant past. 7. Osteoporosis Dear Cristian Ling MD: I had the pleasure of seeing Tiera Lobato today for follow-up. She is a 77 y.o. woman with ahistory of coronary disease and myocardial infarction, status post bypass surgery in 2012, hypertension, degenerative disk disease, diverticulitis, vertigo, and lower extremity DVT. She was here with her son. She was admitted to [facility] in March for chest pain and shortness of breath that began at rest. She called EMS and was given SL NTG with some benefit. BP was high at the OSH, troponins were minimally elevated, peaking at 0.15. Regadenoson nuclear stress test showed reportedly normal perfusion without ischemia or infarction. BP was reportedly 200 mm Hg before her stress test. Echo performed, concern for apical variant hypertrophic cardiomyopathy. She was discharged on dual antiplatelet therapy with aspirin and ticagrelor. She has tolerated these medications without bleeding. We increased lisinopril to 10 mg daily. She is tolerating this. She was apparently readmitted for LH and left lower quadrant abdominal pain, was found to have elevated liver enzymes, per son thought that she had passed a gallstone. Total hospitalization 5 days. No changes in meds. She has been home about 2 weeks. Still having some LH, can occur without clear trigger, occurs a few times per week. No definite orthostasis. Sometimes associated with tachypalpitations. Resolves after several minutes. She has a brachial bp machine. She is tolerating aspirin and ticagrelor. Has not needed furosemide recently. Left leg swelling secondary to venous insufficiency. No orthopnea or PND. No recurrent chest pain. Per son, she has had weight loss. 02/20 182 lbs 03/20 184 lbs 04/08 197 lbs 04/25 172 lbs Poor appetite. Early satiety. Normal bowel function. No melena or hematochezia. No change in stool caliber. Has had one colonoscopy once, thinks within 10 years. Reports she checks stool samples for occult blood every few years with PCP. Family history: There is no family history of hypertrophic cardiomyopathy, cardiomyopathy, or sudden cardiac . Outpatient Encounter Medications as of 05/01/2022 Medication Sig Dispense Refill acetaminophen (TYLENOL) 325 mg tablet TAKE 1 TO 2 TABLETS EVERY 6 HOURS NEEDED. alendronate (FOSAMAX) 70 mg tablet TAKE 1 TABLET BY MOUTH ONE TIME PER WEEK 0 aspirin 81 mg tablet daily. atorvastatin (LIPITOR) 80 mg tablet TAKE 1 TABLET AT BEDTIME. calcium carbonate-vitamin D3 500 mg(1,250mg) -400 unit chewable tablet Take 1 tablet by mouth daily cannabidiol, CBD, (medical cannabis) each 1 Dose 3 (three) times a day as needed Tablets cholecalciferol (VITAMIN D-3) 1,000 unit tablet Take [...] tablet 0.5 tablets (12.5 mg total) daily multivitamin no.44-vit D3-K 1,000-800 unit-mcg capsule daily. omeprazole (PriLOSEC) 20 mg capsule Take 1 capsule (20 mg total) by mouth daily sertraline (ZOLOFT) 100 mg tablet Take 0.5 tablets (50 mg total) by mouth daily docusate sodium (COLACE) 100 mg capsule TAKE 1 CAPSULE TWICE DAILY NEEDED. (Patient not taking: Reported on 05/01/2022) No facility-administered encounter medications on file as of 05/01/2022. Allergies Allergen Reactions Codeine Hives and Shortness of breath Latex Itching Tramadol Nausea & Vomiting and Unknown Physical Exam: BP 116/72 (BP Location: Left arm, Patient Position: Sitting) Pulse 60 Wt 79.8 kg (176 lb) SpO2 97% BMI 31.18 kg/m?? BP Readings from Last 3 Encounters: 05/01/22 116/72 11/22/21 165/68 05/02/21 150/78 Wt Readings from Last 3 Encounters: 05/01/22 79.8 kg (176 lb) 05/02/21 80.2 kg (176 lb 12.8 oz) 01/30/21 79.8 kg (176 lb) General: older white [...] Extremities: no cyanosis or clubbing. No pitting edema but some puffiness of the ankles, L>R. Musculoskeletal: no obvious joint deformities Skin: no obvious rash or bruising Psychiatric: normal affect and mood Neurologic: awake/alert, antalgic gait, uses a cane Results: I have personally reviewed the following: Lab Results Component Value Date SODIUM 141 01/18/2019 POTASSIUM 4.3 01/18/2019 BUNSER 15 01/18/2019 BUNSER 14 05/10/2017 BUNSER 16 09/04/2015 CREATININE 1.30 (H) 05/02/2021 CREATININE 0.88 01/18/2019 CREATININE 0.86 12/23/2018 Lab Results Component Value Date CHOL 174 05/02/2021 CHOL 180 12/23/2018 LDL 87 09/04/2015 LDL 118 09/04/2012 LDLDIRECT 93 05/02/2021 LDLDIRECT 90 12/23/2018 ECG 12/29/2019 sinus bradycardia, HR 51, anterolateral TWI in I, aVL, V3-6, normal axis, normal TN, QRS and QT intervals. Assessment/Plan: Tiera Lobato is a 77 y.o. female with the followin. CAD with prior CA and CABG in 2012 (LAWSON-LAD, SVG-OM). She had a recent admission at [facility] 03/2022 with chest pain/shortness of breath. Troponins were minimally elevated. Nuclear stress test was negative. Will change her from ticagrelor to clopidogrel 75 mg daily given age, bleeding risk. Continue aspirin, metoprolol, atorvastatin, ezetimibe, lisinopril. Asked her to call for chest pain or bleeding issues--low threshold to discontinue clopidogrel. 2. Echocardiogram at OSH 03/2022 with apical hypertrophy (Reviewed), cannot exclude apical HCM. Discussed pathophysiology of HCM, association with ventricular arrhythmias and sudden cardiac arrest. 30-day monitor to screen for arrhythmias in association with possible HCM and recent LH spells, sometimes associated with palpitations. Cardiac MRI to better evaluate for hypertrophic cardiomyopathy. Provided HCM Association patient website for more information. 3. Hypertension, at goal. Continue current meds. Having some LH. Asked her to monitor BID bps x 1 week and send. 4. Osteoporosis with history of pathologic fracture Return to clinic in 6 months. I appreciate the opportunity to participate in Ms. Lobato's care. Please feel free to contact me at with any questions or concerns. Sincerely, Cisco Bender MD, MPHS, FACC train conductor Cardiovascular Division [facility] in [facility] --- Please note: This note was generated in part using voice-recognition software and may contain certified scrub tech errors. BOARD WORKER documented in this encounter Plan of Treatment Not on file documented as of this encounter Results * MRI Cardiac M&F WO Contrast (07/25/2022 10:54 AM DROP BOARD WORKER) Anatomical Region Laterality Modality Body N/A Magnetic Resonan ce 07/25/2022 1:33 PM DROP BOARD WORKER Impressions 07/26/2022 8:44 AM DROP BOARD WORKER 1. ??Findings consistent with apical variant hypertrophic [...] Phil Lewis M.D. Narrative 07/26/2022 8:44 AM DROP BOARD WORKER EXAMINATION: ??MRI CARDIAC M/T/F WO CONTRAST HISTORY: [...] no aortic stenosis and no aortic regurgitation. [place] T1 mapping demonstrates mildly increased signal throughout [...] no aortic stenosis and no aortic regurgitation. [place] T1 mapping demonstrates mildly increased signal throughout [...] it. Electronically signed by: Phil Lewis M.D. us Cisco Bender MD IMG MRI PROCEDURES Final Resu lt * MCT Mobile Cardiac Telemetry Event Monitor (05/01/2022 3:51 PM DROP BOARD WORKER) Anatomical Region Laterality Modality Electrocardiogra phy 05/01/2022 12:3 0 PM DROP BOARD WORKER Narrative 06/05/2022 10:11 AM DROP BOARD WORKER Patient name: Tiera Lobato Date of test: 05/01/2022 Type of Test: Event Monitor (MCT) [facility] #: 0 ?Location: [facility] Heart and Vascular : 1945 ??Age: 77 ??Sex: F Ref Physician(s): CISCO BENDER MD Interpreted by: Chris Clifford MD Apieron Tech: CIARA Rao Diagnosis: Monitoring Service: [employer]ice Reason for Test: R00.2: Palpitations Monitor Used: Body Guardian Heart ([facility]) ?? Enrollment Period: May 01 - May 30, 2022 [employer] comments: The device was applied by the light technician on this note. The patient was instructed on how to use the device. The patient's questions were answered and arrangements were made for the disconnection and return of this device. Number of Transmissions Sent During Enrollment Period: 10 To obtain transmission tracing contact: Rhythm Summary: Date Time of Afib longest episode: 05/19/2022 18:27:00 Afib shortest duration: 00:00:31 Date Time of Afib shortest episode: 05/18/2022 21:50:00 Peak avg Afib rate: 72 Bradycardia avg rate: 55 Bradycardia longest duration: 02:07:37 Bradycardia longest episode: 05/18/2022 04:13:00 Bradycardia shortest duration: 00:00:12 Bradycardia shortest episode: 05/02/2022 04:09:00 Mean heart rate: 64 Pauses >= 3 seconds: 0 Tachycardia avg rate: 103 Tachycardia longest duration: 00:02:58 Tachycardia longest episode: 05/22/2022 13:30:00 Tachycardia shortest duration: 00:00:07 Tachycardia shortest episode: 05/22/2022 16:29:00 Cardiologis Review of Transmissions: Note QRS is inverted in some samples - compared to baseline when it is upright, consider aberrancy. No sample of upright to inverted QRS transition is provided. , I have reviewed the findings on the individual tracings for the dates noted below and I agree., The full scanned/data report is available in [employer]. labeled MONITOR STRIPS PDF . This study was interpreted by Chris Clifford MD Confirmed on ??06/05/2022 - 10:11:37 by Chris Clifford MD Summary of Transmitted Events: # ??Date ? Time ?HR ?Symptoms/Rhythm ? 10 05/28/22 15:29 ?? 80.0 ?Auto Trigger ? Atrial Fibrillation Sustained ? 9 ??05/28/22 01:23 ?? 161.0 ?? Auto Trigger ? Sinus Rhythm, Sinus Bradycardia w/Run of V-Tach (4 Beats 8 ??05/24/22 04:16 ?? 65.0 ?None Reported ? Sinus Rhythm ? 7 ??05/22/22 21:02 ?? 127.0 ?? Auto Trigger ? Ventricular Tachycardia (6 sec), Sinus Rhythm w/[place] 6 ??05/19/22 23:30 ?? 70.0 ?Auto Trigger ? Atrial Fibrillation Sustained w/MF PVCs (3 in 1 min) ?? 5 ??05/18/22 21:50 ?? 140.0 ?? Auto Trigger ? Atrial Fibrillation RVR Onset, Sinus Rhythm Sustained w/ 4 ??05/18/22 21:50 ?? 140.0 ?? Auto Trigger ? Atrial Fibrillation RVR Sustained, Sinus Bradycardia w/R 3 ??05/15/22 22:15 ?? 80.0 ?Auto Trigger ? Accelerated Junctional Rhythm w/PACs ? 2 ??05/13/22 11:14 ?? 80.0 ?Auto Trigger ? Atrial Fibrillation Sustained ? 1 ??05/05/22 17:51 ?? 71 ?None Reported; Baseline ? Sinus Rhythm ? I have personally reviewed and interpreted this study. Procedure Note Chris Clifford Jr., MD PhD - 06/05/2022 Patient name: Tiera Lobaot Date of test: 05/01/2022 Type of Test: Event Monitor ([facility]) Hospital #: 0 Location: [facility] Heart and Vascular : 1945 Age: 77 Sex: F Ref Physician(s): CISCO BENDER MD Interpreted by: Chris Clifford MD Apieron Tech: CIARA Rao Diagnosis: Monitoring Service: [employer] Reason for Test: R00.2: Palpitations Monitor Used: Body Guardian Heart ([facility]) Enrollment Period: May 01 - May 30, 2022 [employer] comments: The device was applied by the light technician on this note. The patient was instructed on how to use the device. The patient's questions were answered and arrangements were made for the disconnection and return of this device. Number of Transmissions Sent During Enrollment Period: 10 To obtain transmission tracing contact: Rhythm Summary: Date Time of Afib longest episode: 05/19/2022 18:27:00 Afib shortest duration: 00:00:31 Date Time of Afib shortest episode: 05/18/2022 21:50:00 Peak avg Afib rate: 72 Bradycardia avg rate: 55 Bradycardia longest duration: 02:07:37 Bradycardia longest episode: 05/18/2022 04:13:00 Bradycardia shortest duration: 00:00:12 Bradycardia shortest episode: 05/02/2022 04:09:00 Mean heart rate: 64 Pauses >= 3 seconds: 0 Tachycardia avg rate: 103 Tachycardia longest duration: 00:02:58 Tachycardia longest episode: 05/22/2022 13:30:00 Tachycardia shortest duration: 00:00:07 Tachycardia shortest episode: 05/22/2022 16:29:00 Cardiologis Review of Transmissions: Note QRS is inverted in some samples - compared to baseline when it is upright, consider aberrancy. No sample of upright to inverted QRS transition is provided. , I have reviewed the findings on the individual tracings for the dates noted below and I agree., The full scanned/data report is available in [employer]. labeled MONITOR STRIPS PDF . This study was interpreted by Chris Clifford MD Confirmed on 06/05/2022 - 10:11:37 by Chris Clifford MD Summary of Transmitted Events: # Date Time HR Symptoms/Rhythm 05/28/22 15:29 80.0 Auto Trigger Atrial Fibrillation Sustained 9 05/28/22 01:23 161.0 Auto Trigger Sinus Rhythm, Sinus Bradycardia w/Run of V-Tach (4 Beats 8 05/24/22 04:16 65.0 None Reported Sinus Rhythm 7 05/22/22 21:02 127.0 Auto Trigger Ventricular Tachycardia (6 sec), Sinus Rhythm w/[place] 6 05/19/22 23:30 70.0 Auto Trigger Atrial Fibrillation Sustained w/MF PVCs (3 in 1 min) 5 05/18/22 21:50 140.0 Auto Trigger Atrial Fibrillation RVR Onset, Sinus Rhythm Sustained w/ 4 05/18/22 21:50 140.0 Auto Trigger Atrial Fibrillation RVR Sustained, Sinus Bradycardia w/R 3 05/15/22 22:15 80.0 Auto Trigger Accelerated Junctional Rhythm w/PACs 2 05/13/22 11:14 80.0 Auto Trigger Atrial Fibrillation Sustained 1 05/05/22 17:51 71 None Reported; Baseline Sinus Rhythm I have personally reviewed and interpreted this study. us Cisco Bender MD CV CARDIAC SERVICES PROCEDURE S Final Result * (ABNORMAL) Basic metabolic panel (05/01/2022 12:58 PM DROP BOARD WORKER) Sodium 140 135 - 145 mmol/L [facility] Potassium, pl 4.2 3.3 - 4.9 mmol/L [facility] Chloride 105 97 - 110 mmol/L [facility] CO2 27 22 - 32 mmol/L [facility] Anion gap 8 2 - 15 mmol/L [facility] BUN 17 8 - 25 mg/dL [facility] Creatinine 1.25(H) 0.60 - 1.10 mg/dL [facility] Glucose 87 70 - 199 mg/dL [facility] Comment: Interpretive Data Fasting glucose [...] 2017. Calcium 10.7(H) 8.5 - 10.3 mg/dL [facility] Blood 05/01/2022 12:5 8 PM DROP BOARD WORKER 05/01/2022 1:13 PM DROP BOARD WORKER us Cisco Bender MD LAB BLOOD ORDERABLES Final Re sult [facility] Department [place] [address] documented in this encounter Visit Diagnoses Diagnosis Chronic coronary artery disease- Primary Coronary atherosclerosis of unspecified type of vessel, wainwright or graft Hx of CABG Postsurgical aortocoronary bypass status Primary hypertension Unspecified essential hypertension Hypertrophic cardiomyopathy (CMS/HCC) (HCC) Other primary cardiomyopathies Palpitations Palpitations Hypertrophic cardiomyopathy (CMS/HCC) (HCC) Other primary cardiomyopathies Palpitations documented in this encounter Orders Outpatient Referral Count Last Ordered Date Fir st Ordered Date AMB REFERRAL TO CARDIOLOGY 1 05/01/2022 documented in this encounter Care Teams Warp Preparer Relationship Specialty Start Date End Date Cristian Ling MD [address] [place] [address] PCP - General 10/16/16 documented as of this encounter
--- OUTSIDE RECORDS SUMMARY | 2024-06-12 03:59 | XMS_ITS | Encounter Summary ---
Author Organization [facility] Address [address] [place] [address] Phone Care Team Providers Care Electrical Accessories I Assembler Name Role Phone Cristian Ling MD Primary Care Prov ider Reason for Visit * Cardiology (Routine) - Closed Specialty Diagnoses / Procedures Referred By Contac t Referred To Contact Diagnoses Palpitations Procedures MCT Mobile Cardiac Telemetry Event Monitor Cisco Bender MD [address] [facility] [address] [place] [address] Phone: tel: fax: [address] [address] Referral ID Status Reason Start Date Expiration Date Visits Re quested Visits Authorized [id number] Closed 05/01/2022 05/31/2023 1 1 Encounter Details Date Type Department Care Team (Late st Contact Info) Description 05/01/2022 12:30 PM PURCHASING AGENT Ancillary Procedure [facility] Cardiology [facility] Advanced Medicine 8th [place] [address] [place] [address] Palpitations Social History Tobacco Use Types Packs/Day [...] on file Legal Sex Female 7:12 AM PURCHASING AGENT Gender Identity Female 02/07/2021 4:33 PM CDT Sexual Orientation Straight 02/07/2021 4: 33 PM CDT documented as of this encounter Miscellaneous Notes * Result Encounter Note - Cisco Bender MD - 06/06/2022 3:47 PM PURCHASING AGENT 30-day monitor: Paroxysmal afib with RVR. NSVT. Started on anticoagulation already. Would increase metoprolol xl to 25 mg daily. Await CMRI. HASING AGENT documented in this encounter Plan of Treatment Not on file documented as of this encounter Procedures Procedure Name Priority Date/Time Associated Diagnosis Comments [facility] - MOBILE CARDIAC TELEMETRY EVENT MONITOR Routine 05/01/2022 3:51 PM PURCHASING AGENT Palpitations documented in this encounter Results * [facility] Mobile Cardiac Telemetry Event Monitor (05/01/2022 3:51 PM PURCHASING AGENT) Anatomical Region Laterality Modality Electrocardiogra phy 05/01/2022 12:3 0 PM PURCHASING AGENT Narrative 06/05/2022 10:11 AM PURCHASING AGENT Patient name: Tiera Lobato Date of test: 05/01/2022 Type of Test: Event Monitor ([facility]) Hospital #: 0 ?Location: [facility] Heart and Vascular : 1945 ??Age: 77 ??Sex: F Ref Physician(s): CISCO BENDER MD Interpreted by: Chris Clifford MD [facility] Tech: Cassy Mejia Lavonne Diagnosis: Monitoring Service: [employer] Reason for Test: R00.2: Palpitations Monitor Used: Body Guardian Heart (MCT) ?? Enrollment Period: May 01 - May 30, 2022 [employer] comments: The device was applied by the maintenance technician 3rd shift on this note. The patient was instructed [...] The full scanned/data report is available in [facility]. labeled MONITOR STRIPS PDF . This study [...] MD PhD - 06/05/2022 Patient name: Tiera Lobato Date of test: 05/01/2022 Type of Test: Event Monitor ([facility]) Hospital #: 0 Location: [facility] Heart and Vascular : 1945 Age: 77 Sex: F Ref Physician(s): CISCO BENDER MD Interpreted by: Chris Clifford MD Hook-Up Tech: CIARA Rao Diagnosis: Monitoring Service: [employer] Reason for Test: R00.2: Palpitations Monitor Used: Body Guardian Heart ([facility]) Enrollment Period: May 01 - May 30, 2022 [employer] comments: The device was applied by the maintenance technician 3rd shift on this note. The patient was instructed [...] The full scanned/data report is available in [employer]. labeled MONITOR STRIPS PDF . This study was interpreted by Chris Clifford MD Confirmed on 06/05/2022 - 10:11:37 by Chris Clifford MD Summary of Transmitted Events: # Date Time HR Symptoms/Rhythm 10 05/28/22 15:29 80.0 Auto Trigger Atrial Fibrillation [...] CV CARDIAC SERVICES PROCEDURE S Final Result documented in this encounter Visit Diagnoses Diagnosis Palpitations documented in this encounter Care Teams Electrical Accessories I Assembler Relationship Specialty Start Date End Date Cristian Ling MD [address] [place] [address] PCP - General 10/16/16 documented as of this encounter
--- OUTSIDE RECORDS SUMMARY | 2024-06-12 03:59 | XMS_ITS | Encounter Summary ---
Author Organization [facility] Address [address] [place] [address] Phone Care Team Providers Care Head Sugar Reprocess Operator Name Role Phone Cristian Ling MD Primary Care Prov ider Encounter Details Date Type Department Care Team (Late st Contact Info) Description 04/08/2022 Telephone [facility] Cardiology [address] [facility] 8th [place] [address] [place] [address] Sami Stafford MD [address] [facility] [address] [place], [place] [id number] Social History Tobacco Use Types Packs/Day Years [...] on file Legal Sex Female 7:12 AM 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 Pt has appt with Dr. Stafford next Friday. Told pt we can obtain BMP on that day. Pt appreciative of call. ER MATCHER * Telephone Encounter - Sheila Pacheco RN - 04/16/2022 3:40 PM CDT Spoke with pt who was in the hospital for GI issues and has not started medications. She said she is going to start them this week and get blood work in 1 week. Will f/u. * Telephone Encounter - Ella Dunn - 04/08/2022 3:49 PM CDT Requested recent echo images from [facility]. * Addendum Note - Sheila Pacheco RN - 04/08/2022 3:45 PM CDTAddended by: SHEILA PACHECO on: 04/08/2022 03:45 PM Modules accepted: Orders * Telephone Encounter - Sheila Pacheco RN - 04/08/2022 3:45 PM CDT Spoke with patient to verify lab and pharmacy. Orders placed. Will watch for lab results in 1 week. * Telephone Encounter - Sami Stafford MD - 04/08/2022 3:29 PM CDT Spoke with Dr. Yaneli Perry from [facility]. Reviewed scanned records. Spoke with patient. She presented with 15 minutes of chest pain and shortness of breath. She was administered sublingual nitroglycerin by EMS with some benefit. Blood pressures were elevated at the outside hospital. Troponin peaked at 0.15. She was treated with dual anti-platelet therapy with aspirin and ticagrelor. Regadenoson nuclear stress test had reportedly normal perfusion without ischemia or infarction. 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 She has not had recurrent symptoms since returning home. Systolic blood pressure is 137. There is no family history of hypertrophic cardiomyopathy, cardiomyopathy, or sudden cardiac . Plan: 1. Increase lisinopril from 5 to 10 mg daily. Repeat BMP after 1 week. 2. Asked her to call for any chest pain or shortness of breath. 3. Discussed the role of dual anti-platelet therapy for medical management of non ST elevation [place]. Asked her to call for any bleeding or bruising issues in which case we would change from ticagrelor to clopidogrel. 4. To resume walking gently for exercise and to call for any concerning symptoms. 5. Will request echocardiogram images from the outside hospital to review for evidence of apical HCM. (Ella, would you please obtain and load into [employer]? Ty.) * Telephone Encounter - Sami Stafford MD - 04/08/2022 3:06 PM CDT Saw ECG portion of stress test but not imaging portion under Media. Ella, would you please request? ty * Telephone Encounter - Sheila Pacheco RN - 04/08/2022 11:13 AM CDT Spoke with pt. She is discharged from hospital. Senior Ios Software Engineer at OSH was concerned with results of stress test. Pt was admitted to [facility] in [place]. Stress test results are scanned in. Will send to JS to look at stress test/determine next steps for pt. * Telephone Encounter - Ema Marin - 04/08/2022 10:32 AM CDT Rivera Patient calling again regarding previous 04/04 & 04/03 encounters. States they have not gotten a call back, please call and advise. documented in this encounter Plan of Treatment Scheduled Orders Name Type Priority Associated Diagnoses Orde r Schedule Basic metabolic panel Lab Routine Primary hypertension Expected: 04/08/2022, Expires: 04/08/2023 documented as of this encounter Visit Diagnoses Diagnosis Primary hypertension- Primary Unspecified essential hypertension documented in this encounter Discontinued Medications Medication Sig Discontinue Reason Start Date End Da te lisinopriL (PRINIVIL,ZESTRIL) 5 mg tablet TAKE 1 TABLET BY MOUTH EVERY DAY Reorder 06/27/2021 04/08/2022 documented as of this encounter Care Teams Head Sugar Reprocess Operator Relationship Specialty Start Date End Date Cristian Ling MD [address] [place] [address] PCP - General 10/16/16 documented as of this encounter
--- OUTSIDE RECORDS SUMMARY | 2024-06-12 04:00 | XMS_ITS | Encounter Summary ---
Author Organization [facility] Address [address] [place] [address] Phone Care Team Providers Care Coning Machine Operator Name Role Phone Cristian Ling MD Primary Care Prov ider Encounter Details Date Type Department Care Team (Late st Contact Info) Description 12/24/2018 Orders Only [facility] Cardiology [address] [facility] 8th [place] [address] [place] [id number] Deepali Jung RN Social History Tobacco Use Types Packs/Day Years Used Date Smoking Tobacco: Never Smokeless Tobacco: Never Comments Unknown Sex and Gender Information Value Date Recorded Sex Assigned at Not on file Legal Sex Female 7:12 AM CAN MAKER Gender Identity Female 02/07/2021 4:33 PM CDT Sexual Orientation Straight 02/07/2021 4: 33 PM CDT documented as of this encounter Ordered Prescriptions Prescription Sig Dispense Quantity Refills Last Filled Start Date End Date ezetimibe (ZETIA) 10 mg tablet Take 1 tablet (10 mg total) by mouth daily 30 tablet 11 12/24/2018 12/02/2019 documented in this encounter Plan of Treatment Not on file documented as of this encounter Visit Diagnoses Not on filedocumented in this encounter Care Teams Coning Machine Operator Relationship Specialty Start Date End Date Cristian Ling MD [address] [place] [address] PCP - General 10/16/16 documented as of this encounter
--- OUTSIDE RECORDS SUMMARY | 2024-06-12 04:00 | XMS_ITS | Encounter Summary ---
Author Organization [facility] Address [address] [place] [address] Care Team Providers Care Mechanical Engineering Technician Name Role Phone Cristian Ling MD Primary Care Prov ider Reason for Referral * MRI/CAT/PET Scan (Routine) - Closed Specialty Diagnoses / Procedures Referred By Contac t Referred To Contact Radiology Procedures MRI Lumbar Spine WO Contrast [facility] [address] [facility] [address] [place] [address] Phone: tel: fax: Referral ID Status Reason Start Date Expiration Date Visits Re quested Visits Authorized [id number] Closed 10/03/2020 11/02/2021 1 1 Reason for Visit * Reason Comments Pain * Consultation (Routine) - Closed Specialty Diagnoses / Procedures Referred By Contac t Referred To Contact Orthopedic Surgery Diagnoses Left sided sciatica Cristian Ling MD [address] [place] [address] Phone: tel: fax: Maxx Pratt MD [address] [facility] [address] [place] [address] Phone: tel: fax: Referral ID Status Reason Start Date Expiration Date V isits Requested Visits Authorized [id number] Closed Specialty Services Required 09/28/2020 12/18/2020 3 3 Encounter Details Date Type Department Care Team (Late st Contact Info) Description 09/28/2020 1:30 PM CDT Office Visit [facility] [address] [facility] [address] [place] [address] Maxx Pratt MD [address] [place] [address] Lumbar stenosis with neurogenic claudication (Primary Dx); Left sided sciatica Social History Tobacco Use Types Packs/Day Years [...] on file Legal Sex Female 7:12 AM SECURITY INVESTIGATOR Gender Identity Female 02/07/2021 4:33 PM CDT Sexual Orientation Straight 02/07/2021 4: 33 PM CDT documented as of this encounter Last Filed Vital Signs Vital Sign Reading Time Taken Comments Blood Pressure 171/84 09/28/2020 1:48 PM CDT Pulse 77 09/28/2020 1:48 PM CDT Temperature - - Respiratory Rate 12 09/28/2020 1:48 PM CDT Oxygen Saturation - - Inhaled Oxygen Concentration - - Weight 80.5 kg (177 lb 6.4 oz) 09/28/2020 1:48 P M CDT Height 160 cm (5' 3 ) 09/28/2020 1:48 PM CDT Body Mass Index 31.42 09/28/2020 1:48 PM CDT documented in this encounter Progress Notes * Carmen Way RN - 09/28/2020 1:30 PM CDT RN - NEW PATIENT ENCOUNTER CC: Lower back pain, left leg pain Onset Date: Jul 2019 - pt randomly started with back and leg pain, pain issues have worsened since that timeframe Symptoms: Constant pain to mid low back area - can extend to right and left low back area, c/o constant pain starting in left ankle and radiates up outer calf and into lateral thigh - occasionally extends up further into hip and left buttock, about a week ago pt started with burning stabbing pain from right hip down anterior right thigh across knee and down lateral right calf into ankle, left numb/ting to lower outer leg, numb/ting down anterior right thigh and right outer calf, weakness felt to bilateral legs - difficulty bearing weight at times but also difficulty lifting legs - especially right leg, increased back and leg pains with walking any distance or standing any length of time, able to sit if positioned correctly with right leg extended out further, sleeping difficulty due to right leg tingling and restlessness, difficulty turning in bed due to pain issues, denies b/b issues Smoking Status: Non-smoker Treating MD'S: Dr. Cristian Pollard (PCP/referral), Dr. Sami Stafford (Cardio), Dr. Ramses Mejia (Ortho) Treatment: PT - no relief, Tests: Jul - Lumbar MRI Work Status: Retired Review of Systems Constitutional: Positive for diaphoresis (night sweats). Negative for fever. HENT: Negative for sore throat. Eyes: Negative for double vision. Respiratory: Negative for cough. Cardiovascular: Positive for leg swelling. Negative for chest pain. Gastrointestinal: Positive for heartburn. Negative for abdominal pain. Genitourinary: Negative for dysuria. Musculoskeletal: Positive for back pain. Negative for myalgias. Skin: Negative for rash. Neurological: Negative for dizziness. Endo/Heme/Allergies: Does not bruise/bleed easily. Psychiatric/Behavioral: Negative for depression. Oswestry: 22 PHQ: 2 FALL: 2 - (Low Risk) * Maxx Pratt MD - 09/28/2020 1:30 PM CDT Images from the original note were not included. CC: Low back pain and left leg pain HPI Ms. Lobato is a 75 y.o. year old female referred for evaluation of lumbar stenosis with neurogenic claudication by Cristian Pollard MD. The patient is well known to me as I took care of her son in 2006. She reports that her symptoms began in July of 2019 with both back and left leg pain. Her symptoms have worsened since that time. She reports constant pain to her mid low back thatcan extend into the right and left low back region. She complains of constant pain in the left ankle that radiates of the outer calf and into the lateral thigh occasionally extending into the hip andleft buttock. She has noticed some symptoms on the right side and the lateral hip and thigh. She co mplains of left leg numbness and tingling in the lateral aspect of her leg. She gets occasional numbness and tingling down her right anterior thigh and right outer calf. She complains of weakness to both legs. She has difficulty bearing weight at times and occasional difficulty lifting her legs. She reports increased back pain and leg pain with walking for prolonged standing. She is able to sit for prolonged period of time if she is in good position. She has some sleeping difficulty due to right leg tingling and restlessness. She has pain when turning in bed. She denies any bowel or bladder issues. Has she reports that she can walk much farther behind a grocery cart. He Smoking Status: Non-smoker ?? Treating MD'S: Dr. Crsitian Pollard (PCP/referral), Dr. Sami Stafford (Cardio), Dr. Ramses Mejia (Ortho) ?? Treatment: PT - no relief, ?? Tests: Jul - Lumbar MRI ?? Work Status: Retired Review of Systems: Constitutional: Positive for diaphoresis (night sweats). Negative for fever. HENT: Negative for sore throat. Eyes: Negative for double vision. Respiratory: Negative for cough. Cardiovascular: Positive for leg swelling. Negative for chest pain. Gastrointestinal: Positive for heartburn. Negative for abdominal pain. Genitourinary: Negative for dysuria. Musculoskeletal: Positive for back pain. Negative for myalgias. Skin: Negative for rash. Neurological: Negative for dizziness. Endo/Heme/Allergies: Does not bruise/bleed easily. Psychiatric/Behavioral: Negative for depression. ?? Allergies: Allergies Allergen Reactions ??? Codeine Hives and Shortness of breath ??? Latex Itching ? ? Tramadol Nausea & Vomiting Past Medical History: Diagnosis Date ??? Acid reflux ??? Heart murmur ??? High cholesterol ??? History of blood clots 1960s in leg as teenager - had phlebitis ??? History of [place] (myocardial infarction) 2012 ??? History of vertebral fracture 2018 ??? HTN (hypertension) ??? IBS (irritable bowel syndrome) ??? Vertigo Past Surgical History: Procedure Laterality Date ??? COLON SURGERY 1992 Repair burst colon ??? CORONARY ARTERY BYPASS GRAFT 2012 Double by-pass - [facility] ??? MICRODISCECTOMY 1998 Dr. James ([place], [place]) ??? TOTAL KNEE ARTHROPLASTY Right 2018 Physical Exam: BP (!) 171/84 Pulse 77 Resp 12 Ht 160 cm (5' 3 ) Wt 80.5 kg (177 lb 6.4 oz) BMI 31.42 kg/m?? Oswestry: 22 ?? PHQ: 2 ?? FALL: 2 - (Low Risk) Neurological The patient is a well-developed, well-nourished female in no acute distress. She has grossly intact CN II-XII. The patient has 15?? of extension, 80?? of flexion, 80?? of rotation of the right, and 80?? of rotation to the left of the cervical spine. There is 5?? of extension and 90?? of flexion of the lumbar spine. The patient has good range of motion of the bilateral shoulders, elbows, hips and knees. The patient has grossly normal muscle bulk, tone and strength throughout. Sensation is grossly intact to lighttouch. The patient has a negative WARREN sign bilaterally. The patient has a mildly positive piriformis stretch bilaterally. The patient has a negative straight leg raise bilaterally. The patient is able to walk on tiptoes and heels. Toes are downgoing. The patient has a normal gait is able to perform normal tandem gait. Review of Xrays: MRI lumbar spine shows multilevel spondylosis. Her stenosis is most severe at the L4-5 level with bilateral lateral recess stenosis and severe facet arthropathy. She has significant central canal stenosis at that level as well. Diagnoses and all orders for this visit: Lumbar stenosis with neurogenic claudication (Primary) Assessment & Plan: Ms. Lobato has lumbar stenosis with neurogenic [...] flexion-extension lumbar spine films at that time. Left sided sciatica - Ambulatory referral to Orthopedic Surgery This note has been transcribed by voice recognition software and not thoroughly reviewed; it is subject to mix technician variance. Maxx Pratt MD, FAANS documented in this encounter Miscellaneous Notes * Assessment & Plan Note - Maxx Pratt MD - 09/29/2020 9:09 AM CDT Associated Problem(s): Lumbar stenosis with neurogenic claudication Ms. Lobato has lumbar stenosis with neurogenic [...] flexion-extension lumbar spine films at that time. documented in this encounter Plan of Treatment Not on file documented as of this encounter Procedures Procedure Name Priority Date/Time Associated Diagnosis Comments MRI LUMBAR SPINE WO CONTRAST Schedule Routine, Read Routine (OP Routine) 07/27/2020 documented in this encounter Results * MRI Lumbar Spine WO Contrast (07/27/2020) Anatomical Region Laterality Modality Spine N/A Magnetic Resonan ce us Historical Provider MD [facility] MRI PROCEDURES Final Result documented in this encounter Visit Diagnoses Diagnosis Lumbar stenosis with neurogenic claudication- Primary Left sided sciatica Sciatica documented in this encounter Historical Medications * This list may reflect changes made after this encounter. omeprazole (PriLOSEC) 20 mg capsule Take 1 capsule (20 mg total) by mouth daily 03/21/2023 added in this encounter Orders Outpatient Referral Count Last Ordered Date Fir st Ordered Date AMB REFERRAL TO ORTHOPEDIC SURGERY 1 2020 documented in this encounter Care Teams Mechanical Engineering Technician Relationship Specialty Start Date End Date Cristian Ling MD [address] [place] [address] PCP - General 10/16/16 documented as of this encounter
--- OUTSIDE RECORDS SUMMARY | 2024-06-12 04:00 | XMS_ITS | Encounter Summary ---
Author Organization [facility] Address [address] [place] [address] Care Team Providers Care Project Associate Name Role Phone Cristian Ling MD Primary Care Prov ider Reason for Visit * Reason Comments Pain Encounter Details Date Type Department Care Team (Late st Contact Info) Description 11/22/2021 1:00 PM CDT Office Visit [facility] [address] [facility] [address] [place] [address] Maxx Pratt MD [address] [address] [place] [address] Right hip pain (Primary Dx) [...] on file Legal Sex Female 7:12 AM PLANT 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 Gender Identity Female 02/07/2021 4:33 PM CDT Sexual Orientation Straight 02/07/2021 4: 33 PM CDT documented as of this encounter Last Filed Vital Signs Vital Sign Reading Time Taken Comments Blood Pressure 165/68 11/22/2021 1:42 PM CDT Pulse 66 11/22/2021 1:42 PM CDT Temperature - - Respiratory Rate 14 11/22/2021 1:42 PM CDT Oxygen Saturation - - Inhaled Oxygen Concentration - - Weight - - Height - - Body Mass Index - - documented in this encounter Progress Notes * Carmen Way RN - 11/22/2021 1:00 PM CDT RN PROGRESS NOTE - FOLLOW UP Last visit via Telehealth in Feb - osteoporosis found via dexa scan - high risk for any spine surgery Not a surgical candidate per [facility]JS September - spoke with pt re: ongoing leg pain and newer right groin pain Also c/o warm feeling in leg at that time - no swelling but change in color - recommended she speakfurther with PCP for possible vascular issues Discussed she could see PCP for MRI or see Yesica for evaluation ?? Here for further evaluation upon request from son ?? Known severe lumbar stenosis at L4-5 with symptoms of neurogenic claudication ?? Pt has debilitating pain at times to where she doesn't even come out her apartment/room at assisted living - doesn't eat at times due to pain ?? Ongoing back pain - severe pain in right groin radiating down anterior thigh and leg - can extend into ankle/foot ?? Right great toe/foot numbness at times ?? Ongoing back pain issues as well but leg pain is worse ?? Balance issues in right leg due to pain being so severe - unable to stand up on it due to pain ?? Uses cane to ambulate ?? Here to discuss any treatment options possible ?? Had injections in past with Dr. Gonzalez - no relief ?? Asking about a nerve block and if that would work ?? Also tried accupuncture * Maxx Pratt MD - 11/22/2021 1:00 PM CDT Images from the original note were not included. Follow-up Office Visit: Ms. Lobato returns to discuss increasing right hip and leg pain. She was last seen via telehealth in February of 2021. We discussed at that time that she was not a surgicalcandidate for lumbar spine surgery. In September of 2021 she was re-evaluated with ongoing leg pain andnew right groin pain. She has known severe lumbar stenosis at L4-5 with symptoms of neurogenic claudication. She reports that her right hip pain gets so bad that she does not want to leave her apartment at assisted living. She reports that she sometimes does not eat due to pain. She reports the pain is in her right groin and extends into her anterior thigh and proximal leg. It occasionally goes beyond the knee to the ankle. She reports right great toe/foot numbness at times. She reports that the right leg sometimes feels like it wants to give out and causes balance issues. She has difficulty supporting weight with her right leg. She uses a cane to ambulate. Physical Examination: On examination, she has grossly normal muscle bulk, tone and strength throughout. She has a markedly positive WARREN sign on the right that reproduces her symptoms. She walks with a very antalgic gait favoring her right hip. Review of X-rays: The patient was set for AP and frog lateral hip films after the appointment. These shows severe arthritic changes in the right hip joint. Diagnoses and all orders for this visit: Right hip pain (Primary) Assessment & Plan: Ms. Lobato has right hip pain with an antalgic gait favoring her right hip, a positive WARREN maneuver on the right that reproduces her symptoms, and history that is consistent with right hip disease. Right AP and frog lateral hip films show advanced degenerative arthritic changes of the right hipjoint. We will refer her to physiatry for formal evaluation of the hip and possible injections. I plan to see her back in 6 months for re-evaluation. She is aware that with her osteoporosis, she is not a surgical candidate for any decompression or fusion of the lumbar spine. This document was created using speech voice recognition software and has not been thoroughly reviewed. Grammatical errors, random word insertions, pronoun errors and incomplete sentences are an occasional consequence of this system due to software limitations, ambient noise and hardware issues. Any formal questions or concerns about content, text or information contained within the body of this dictation should be directly addressed to the provider's office for clarification. Maxx Pratt MD, FAANS Neurological Surgery documented in this encounter Miscellaneous Notes * Assessment & Plan Note - Maxx Pratt MD - 11/22/2021 2:54 PM CDT Associated Problem(s): Right hip pain Ms. Lobato has right hip pain with an antalgic gait favoring her right hip, a positive WARREN maneuver on the right that reproduces her symptoms, and history that is consistent with right hip disease. Right AP and frog lateral hip films show advanced degenerative arthritic changes of the right hipjoint. We will refer her to physiatry for formal evaluation of the hip and possible injections. I plan to see her back in 6 months for re-evaluation. She is aware that with her osteoporosis, she is not a surgical candidate for any decompression or fusion of the lumbar spine. documented in this encounter Plan of Treatment Not on file documented as of this encounter Visit Diagnoses Diagnosis Right hip pain- Primary Pain in joint, pelvic region and thigh documented in this encounter Historical Medications * This list may reflect changes made after this encounter. cannabidiol, CBD, (medical cannabis) each 1 Dose 3 (three) times a day as needed Tablets 11/25/2023 added in this encounter Care Teams Project Associate Relationship Specialty Start Date End Date Cristian Ling MD [address] [place] [address] PCP - General 10/16/16 documented as of this encounter
--- OUTSIDE RECORDS SUMMARY | 2024-06-12 04:00 | XMS_ITS | Encounter Summary ---
Author Organization [facility] Address [address] [place] [address] Care Team Providers Care Crime Investigator Special Agent Name Role Phone Cristian Ling MD Primary Care Prov ider Reason for Referral * Diagnostic Imaging (Routine) - Closed Specialty Diagnoses / Procedures Referred By Contac t Referred To Contact Diagnoses Lumbar stenosis with neurogenic claudication Procedures XR Spine Lumbar Flex Ext Only 2 Views Maxx Pratt MD Phone: tel: fax: [facility] [address] [place] [address] Referral ID Status Reason Start Date Expiration Date Visits Re quested Visits Authorized [id number] Closed 10/03/2020 11/02/2021 1 1 Encounter Details Date Type Department Care Team (Late st Contact Info) Description 10/03/2020 Orders Only [facility] [place] [address] [address] [place] [address] Maxx Pratt MD [address] [facility] [address] [place] [address] Lumbar stenosis with neurogenic claudication (Primary Dx); Age-related osteoporosis without current pathological fracture Social History [...] on file 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 Dobbs they will call patient to [facility] appt. Order in [facility] for DEXA scan [facility] will call to [facility] appt. Pt is aware. documented in this encounter Plan of Treatment Not on file documented as of this encounter Results * XR Spine Lumbar Flex Ext Only 2 Views (01/30/2021 10:49 AM CDT) Anatomical Region Laterality Modality L-spine N/A Computed Radiogr aphy 01/30/2021 3:33 PM CDT Impressions 01/30/2021 3:33 PM CDT 1. ??Moderate severity anterior compression fracture deformity of T11. Exact age uncertain but new compared to 05/10/2017. 2. ??No lumbar fracture detected. 3. ??Degenerative disc disease and disc space loss throughout each of the lumbar levels. ??Degenerative spondylosis present throughout. Osteoarthrosis of the apophyseal joints of the lumbar segments, greater in the lower lumbar levels. 4. ??No signs of pathologic subluxation of the lumbar vertebrae with flexion or extension of the back. 5. ??Atherosclerosis of the abdominal aorta. Electronically signed by: Parker Nur M.D. Narrative 01/30/2021 3:33 PM CDT Exam: XR LUMBAR SPINE FLEX EXT ONLY 2 VIEWS Date/Time of Exam: 01/30/2021 11:00 AM Reason For Exam: spinal stenosis. Diagnosis: Lumbar stenosis with neurogenic claudication [M48.062 (ICD-10-CM)] Findings: Submitted are lateral projection flexion and extension views of the lumbar spine. The lumbar vertebrae are osteopenic. ??No lumbar fracture is seen though. ??The vertebrae are aligned. ??There changes of degenerative disc disease with narrowed disc spaces throughout each of the lumbar levels. ??There is arthritic narrowing of the apophyseal joints throughout. ??The abdominal aorta is calcified. There do not appear to be signs of subluxation of the lumbar vertebrae with flexion or extension of the lumbar spine. Incidental note of the presence of a moderate severity anterior compression fracture deformity of T11. ??This appears to be new compared to the CT evaluation dated 05/10/2017. ??Exact age uncertain. Procedure Note Parker Nur MD - 01/30/2021 Exam: XR LUMBAR SPINE FLEX EXT ONLY 2 VIEWS Date/Time of Exam: 01/30/2021 11:00 AM Reason For Exam: spinal stenosis. Diagnosis: Lumbar stenosis with neurogenic claudication [M48.062 (ICD-10-CM)] Findings: Submitted are lateral projection flexion and extension views of the lumbar spine. The lumbar vertebrae are osteopenic. No lumbar fracture is seen though. The vertebrae are aligned. There changes of degenerative disc disease with narrowed disc spaces throughout each of the lumbar levels. There is arthritic narrowing of the apophyseal joints throughout. The abdominal aorta is calcified. There do not appear to be signs of subluxation of the lumbar vertebrae with flexion or extension of the lumbar spine. Incidental note of the presence of a moderate severity anterior compression fracture deformity of T11. This appears to be new compared to the CT evaluation dated 05/10/2017. Exact age uncertain. IMPRESSION: 1. Moderate severity anterior compression fracture deformity of T11. Exact age uncertain but new compared to 05/10/2017. 2. No lumbar fracture detected. 3. Degenerative disc disease and disc space loss throughout each of the lumbar levels. Degenerative spondylosis present throughout. Osteoarthrosis of the apophyseal joints of the lumbar segments, greater in the lower lumbar levels. 4. No signs of pathologic subluxation of the lumbar vertebrae with flexion or extension of the back. 5. Atherosclerosis of the abdominal aorta. Electronically signed by: Parker Nur M.D. us Maxx Pratt MD IMG XR PROCEDURES Final Resul t documented in this encounter Visit Diagnoses Diagnosis Lumbar stenosis with neurogenic claudication- Primary Age-related osteoporosis without current pathological fracture Lumbar stenosis with neurogenic claudication documented in this encounter Care Teams Crime Investigator Special Agent Relationship Specialty Start Date End Date Cristian Ling MD [address] [place] [address] PCP - General 10/16/16 documented as of this encounter
--- OUTSIDE RECORDS SUMMARY | 2024-06-12 04:00 | XMS_ITS | Encounter Summary ---
Author Organization [facility] Address [address] [facility] [address] [place] [address] Care Team Providers Care Utilization Supervisor Name Role Phone Cristian Ling MD Primary Care Prov ider Encounter Details Date Type Department Care Team (Late st Contact Info) Description 10/04/2020 Orders Only [facility] [place] [address] [facility] [address] [place] [address] Maxx Pratt MD [address] [place] [address] Lumbar stenosis with neurogenic claudication (Primary Dx) Social History Tobacco Use Types [...] file 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 Dobbs does not take her ins. Faxed referral & clinical to [facility], they will call patient to [facility] appt. Pt is aware. documented in this encounter Plan of Treatment Not on file documented as of this encounter Visit Diagnoses Diagnosis Lumbar stenosis with neurogenic claudication- Primary documented in this encounter Care Teams Utilization Supervisor Relationship Specialty Start Date End Date Cristian Ling MD [address] [place] [address] PCP - General 10/16/16 documented as of this encounter
--- OUTSIDE RECORDS SUMMARY | 2024-06-12 04:00 | XMS_ITS | Encounter Summary ---
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 Patient verbalizes understanding. Phone number for Neurosurgery at [facility] given to the patient to call and schedule her own appointmentfor consultation. ----- Message from Maxx Pratt MD sent at 02/13/2021 4:09 PM CDT ----- Regarding: FW: Bone Density Results Bone densities -2.6 which puts her at high risk for failure of surgery as such I will not offer surgical intervention. She can get 2nd opinion at a tertiary care center surgery if she wishes. ----- Message ----- From: Yesica Perry NP Sent: 02/13/2021 9:03 AM CDT To: Maxx Pratt MD Subject: Bone Density Results Received Bone Density results from [facility] dated 02/07/21 for your review and further recommendations. Thanks. documented in this encounter Plan of Treatment Not on file documented as of this encounter Visit Diagnoses Not on filedocumented in this encounter Care Teams Photoengraving Proofer Apprentice Relationship Specialty Start Date End Date Cristian Ling MD [address] [place] [address] PCP - General 10/16/16 documented as of this encounter
--- OUTSIDE RECORDS SUMMARY | 2024-06-12 04:00 | XMS_ITS | Encounter Summary ---
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; Essential hypertension Social History Tobacco Use Types Packs/Day [...] on file Legal Sex Female 7:12 AM HOME SALES SERVICE PROFESSIONAL Gender Identity Female 02/07/2021 4:33 PM CDT Sexual Orientation Straight 02/07/2021 4: 33 PM CDT documented as of this encounter Plan of Treatment Not on file documented as of this encounter Procedures Procedure Name Priority Date/Time Associated Diagnosis Comments LIPID PANEL Routine 05/02/2021 11:19 AM HOME SALES SERVICE PROFESSIONAL 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 BASIC METABOLIC PANEL Routine 05/02/2021 11:19 AM HOME SALES SERVICE PROFESSIONAL Essential hypertension documented in this encounter Results * (ABNORMAL) Basic metabolic panel (05/02/2021 11:19 AM HOME SALES SERVICE PROFESSIONAL) Glucose 99 64 - 99 mg/dL [facility] Comment: NONFASTING GLUCOSE RANGE = 64-199 mg/dL FASTING GLUCOSE 64 - 99 = NORMAL FASTING GLUCOSE 100 - 125 = IMPAIRED FASTING GLUCOSE FASTING GLUCOSE >=126 = PROVISIONAL DIAGNOSIS OF DIABETES Potassium 4.9 3.3 - 5.1 mmol/L [facility] Creatinine 1.30(H) 0.60 - 1.10 mg/dL [facility] BUN 25(H) 7 - 23 mg/dL [facility] Sodium 139 135 - 145 mmol/L [facility] Chloride 104 95 - 107 mmol/L [facility] CO2 Content 25 21 - 29 mmol/L [facility] Calcium 10.5(H) 8.6 - 10.3 mg/dL [facility] eGFR 42.9(L) >60.0 mL/min/1.7 3 m2 [facility] Comment:eGFR updated to new CKD-EPI (2020) calculation without race on 04/30/21. Blood specimen (specimen) 05/02/2021 11:19 AM HOME SALES SERVICE PROFESSIONAL 05/02/2021 12:04 PM HOME SALES SERVICE PROFESSIONAL us Sami [place] MD LAB BLOOD ORDERABLES Final Re sult [facility] * Lipid panel (05/02/2021 11:19 AM HOME SALES SERVICE PROFESSIONAL) Triglycerides 127 0 - 149 mg/dL [facility] Comment: NATIONAL CHOLESTEROL EDUCATION PROGRAM ATP III GUIDELINES FOR ADULTS: Normal: ?<150 mg/dL Borderline High: 150-199 mg/dL High: ?200-499 mg/dL Very High: ? >=500 mg/dL Total Cholesterol 174 0 - 199 mg/dL [facility] Comment: NATIONAL CHOLESTEROL EDUCATION PROGRAM ATP III GUIDELINES FOR ADULTS: Desirable: ? <200 mg/dL Borderline High: 200-239 mg/dL High: ?>=240 mg/dL Total HDL-C Direct 56 >39 mg/dL [facility] Comment: NATIONAL CHOLESTEROL EDUCATION PROGRAM ATP III GUIDELINES FOR ADULTS: Optimal: ?>=60 mg/dL Near Optimal: 40-59 mg/dL High Risk: ?<40 mg/dL [place] LDL Chol 93 0 - 129 mg/dL [facility] Comment: NATIONAL CHOLESTEROL EDUCATION PROGRAM ATP III GUIDELINES FOR ADULTS: Optimal: ? <100 mg/dL Near Optimal: ?100-129 mg/dL Borderline High: 130-159 mg/dL High: ?160-189 mg/dL Very High: ? 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
--- OUTSIDE RECORDS SUMMARY | 2024-06-12 04:00 | XMS_ITS | Encounter Summary ---
Author Organization [facility] Address [address] [place] [address] Phone Care Team Providers Care Duplicating Machine Mechanic Name Role Phone Cristian Ling MD Primary Care Prov ider Encounter Details Date Type Department Care Team (Late st Contact Info) Description 01/13/2019 Orders Only [facility] Cardiology [address] [facility] 8th [place] [address] [place] [address] Sami [place] MD [address] [facility] [address] [place], [place] [id number] Essential hypertension (Primary Dx) Social History Tobacco Use Types Packs/Day Years Used Date Smoking Tobacco: Never Smokeless Tobacco: Never Comments Unknown Sex and Gender Information Value Date Recorded Sex Assigned at Not on file Legal Sex Female 7:12 AM REGISTERED NURSE Gender Identity Female 02/07/2021 4:33 PM CDT Sexual Orientation Straight 02/07/2021 4: 33 PM CDT documented as of this encounter Plan of Treatment Not on file documented as of this encounter Procedures Procedure Name Priority Date/Time Associated Diagnosis Comments BASIC METABOLIC PANEL Routine 01/18/2019 11:49 AM CDT Essential hypertension documented in this encounter Results * (ABNORMAL) Basic metabolic panel (01/18/2019 11:49 AM CDT) Glucose 103(H) 65 - 99 mg/dL [facility] Comment: ? Fasting reference interval For someone without known diabetes, a glucose value between 100 and 125 mg/dL is consistent with prediabetes and should be confirmed with a follow-up test. BUN 15 7 - 25 mg/dL [facility] Creatinine 0.88 0.60 - 0.93 mg/dL [facility] Comment: For patients >49 years of age, the reference limit for Creatinine is approximately 13% higher for people identified as -[place]izean. eGFR NON-AFR. DJIBOUTIAN 66 > OR = 60 mL/min/1 .73m2 [facility] EGFR 76 > OR = 60 mL/min/1 .73m2 [facility] BUN/creat ratio NOT APPLICABLE 6 - 22 (calc) [facility] Sodium 141 135 - 146 mmol/L [facility] Potassium, pl 4.3 3.5 - 5.3 mmol/L [facility] Chloride 108 98 - 110 mmol/L [facility] CO2 26 20 - 32 mmol/L [facility] Calcium 9.3 8.6 - 10.4 mg/dL [facility] Blood specimen (specimen) 01/18/2019 11:49 AM CDT 01/18/2019 11:50 AM CDT Narrative Resulting Agency Comment Performing Organization Information: ?Site ID: [id number] ?Name: [facility] ?Address: [address] [place] [address] [place] [address] ?Director: Leno Diehl D.O. MPH us Sami [place] MD LAB BLOOD ORDERABLES Final Re sult [facility] [place], [place] documented in this encounter Visit Diagnoses Diagnosis Essential hypertension- Primary Unspecified essential hypertension documented in this encounter Care Teams Duplicating Machine Mechanic Relationship Specialty Start Date End Date Cristian Ling MD [address] [place] [address] PCP - General 10/16/16 documented as of this encounter
--- OUTSIDE RECORDS SUMMARY | 2024-06-12 04:00 | XMS_ITS | Encounter Summary ---
Author Organization [facility] Address [address] [place] [address] Phone Care Team Providers Care Nurse Clinician Name Role Phone Cristian Ling MD Primary Care Prov ider Encounter Details Date Type Department Care Team (Late st Contact Info) Description 05/08/2021 Telephone [facility] Cardiology [address] [facility] 8[address] [place] [address] [place] [address] Sami [place] MD [address] [facility] [address] [place], [place] [id number] Social History Tobacco Use Types Packs/Day Years [...] on file 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 Cantu, and he sent a message back HERMAL ELECTRICAL ENGINEER * Telephone Encounter - Millicent Laguna - 05/08/2021 11:28 AM CST johnny Pt would like to discuss her lab results with a nurse, she also says that her pcp did not receive the fax deepali sent yesterday, she confirms the phone number on file for dr higgins is correct butshe doesn't have their fax HERMAL ELECTRICAL ENGINEER documented in this encounter Plan of Treatment Not on file documented as of this encounter Visit Diagnoses Not on filedocumented in this encounter Care Teams Nurse Clinician Relationship Specialty Start Date End Date Cristian Ling MD [address] [place] [address] PCP - General 10/16/16 documented as of this encounter
--- OUTSIDE RECORDS SUMMARY | 2024-06-12 04:00 | XMS_ITS | Encounter Summary ---
Author Organization [facility] Address [address] [place] [address] Phone Care Team Providers Care Director Of Government Sales Name Role Phone Cristian Ling MD Primary Care Prov ider Encounter Details Date Type Department Care Team (Late st Contact Info) Description 01/08/2019 Telephone [facility] Cardiology [address] [facility] 8th [place] [address] [place] [address] Sami [place] MD [address] [facility] [address] [place], [place] [id number] Social History Tobacco Use Types Packs/Day Years Used Date Smoking Tobacco: Never Smokeless Tobacco: Never Comments Unknown Sex and Gender Information Value Date Recorded Sex Assigned at Not on file 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 Pt will do BMP on Thursday 01/18 at [facility]. Order created and mailed to pt. * Telephone Encounter - Juan Delarosa RN - 01/08/2019 1:39 PM CDT Spoke w/ pt She will start the lisinopril She wants to call us back and let us know where to draw the BMP Not ordered as yet She will continue monitoring BP * Addendum Note - Juan Delarosa RN - 01/08/2019 1:38 PM CDTAddended by: JUAN DELAROSA on: 01/08/2019 01:38 PM Modules accepted: Orders * Telephone Encounter - Sami Stafford MD - 01/08/2019 1:27 PM CDT Goal sbp<130. If willing, add lisinopril 5 mg, repeat bmp in 1 week. * Telephone Encounter - Juan Delarosa RN - 01/08/2019 9:57 AM CDT Called pt back She will continue to take She confirmed she is taking metop 12.5mg, no BP meds Med list correct * Telephone Encounter - Modesta Mixon - 01/08/2019 9:46 AM CDT Pt called back wants to know should she continue taking her BP everyday, please call. * Telephone Encounter - Juan Delarosa, RN - 01/08/2019 9:26 AM CDT Spoke w/ pt BP-HR results: 135/58 58 19th - [facility], the rest at home 140/68 [address] 20[address] 138/66 61 21[address] 133/64 [address] 115/[address] 147/66 59 149/68 57 25[address] Taking consistently around 11am She is feeling well * Telephone Encounter - Juan Delarosa RN - 01/08/2019 9:25 AM CDT ----- Message from Deepali Jung RN sent at 01/01/2019 1:15 PM CDT ----- 01/01- Pt has not been checking BP, will start checking it now and I will follow up with her in 1 week Labs are done and resulted JS ----- Message ----- From: Deepali Jung RN Sent: 12/31/2018 To: , # Labs after OV BMP, lipid, TSH Check bp and call with readings documented in this encounter Plan of Treatment Not on file documented as of this encounter Visit Diagnoses Not on filedocumented in this encounter Care Teams Director Of Government Sales Relationship Specialty Start Date End Date Cristian Ling MD [address] [place] [address] PCP - General 10/16/16 documented as of this encounter
--- OUTSIDE RECORDS SUMMARY | 2024-06-12 04:00 | XMS_ITS | Encounter Summary ---
Author Organization [facility] Address [address] [place] [address] Phone Care Team Providers Care Analytics Manager Name Role Phone Cristian Ling MD Primary Care Prov ider Encounter Details Date Type Department Care Team (Late st Contact Info) Description 01/05/2020 Telephone [facility] Cardiology [address] [facility] 8th [place] [address] [place] [address] Sami Stafford MD [address] [facility] [address] [place], [place] [id number] Social History Tobacco Use Types Packs/Day Years Used Date Smoking Tobacco: Never Smokeless Tobacco: Never Comments Unknown Sex and Gender Information Value Date Recorded Sex Assigned at Not on file 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 JS documented in this encounter Plan of Treatment Not on file documented as of this encounter Visit Diagnoses Not on filedocumented in this encounter Care Teams Analytics Manager Relationship Specialty Start Date End Date Cristian Ling MD [address] [place] [address] PCP - General 10/16/16 documented as of this encounter
--- OUTSIDE RECORDS SUMMARY | 2024-06-12 04:00 | XMS_ITS | Encounter Summary ---
Author Organization [facility] Address [address] [place] [address] Phone Care Team Providers Care Nurse Practitioner Adult Name Role Phone Cristian Ling MD Primary Care Prov ider Encounter Details Date Type Department Care Team (Late st Contact Info) Description 01/06/2020 Telephone [facility] Cardiology [address] [facility] 8th [place] [address] [place] [address] Sami Stafford MD [address] [facility] [address] [place], [place] [id number] Social History Tobacco Use Types Packs/Day Years Used Date Smoking Tobacco: Never Smokeless Tobacco: Never Comments Unknown Sex and Gender Information Value Date Recorded Sex Assigned at Not on file 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 Continue current treatment. * Telephone Encounter - Suki Doe RN - 01/14/2020 10:45 AM CDT I spoke with patient for BP update: 01/06 113/54.62 123/54.60 01/07 125/57.66 130/63.67 01/08 125/55.68 129/56.62 01/09 113/52.62 124/53.55 01/10 100/67.63 121/58.59 105/54.66 01/11 110/55.71 131/58.52 01/12 113/54/55 121/55.68 01/13 123/54.52 * Telephone Encounter - Kavitha Yusuf BS - 01/14/2020 10:26 AM CDT PT CALLING BACK WITH BP READINGS, GOT A NEW BP CUFF. * Telephone Encounter - Suki Doe RN - 01/14/2020 10:20 AM CDT LMOR requesting call back for update * Telephone Encounter - Deepali Jung RN - 01/06/2020 10:33 AM CDT Will f/u next week for BP update * Telephone Encounter - Kory Haas - 01/06/2020 10:10 AM CDT Rivera Patient calling to inform her blood pressure machine is broken, and she is waiting for a new one. documented in this encounter Plan of Treatment Not on file documented as of this encounter Visit Diagnoses Not on filedocumented in this encounter Care Teams Nurse Practitioner Adult Relationship Specialty Start Date End Date Cristian Ling MD [address] [place] [address] PCP - General 10/16/16 documented as of this encounter
--- OUTSIDE RECORDS SUMMARY | 2024-06-12 04:00 | XMS_ITS | Encounter Summary ---
Author Organization [facility] Address [address] [place] [address] Phone Care Team Providers Care Municipal Court Judge Name Role Phone Cristian Ling MD Primary Care Prov ider Reason for Visit * Reason Onset Date Comments Med Refill 01/03/2020 Encounter Details Date Type Department Care Team (Late st Contact Info) Description 01/03/2020 Telephone [facility] Cardiology [address] 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 documented in this encounter Plan of Treatment Not on file documented as of this encounter Visit Diagnoses Not on filedocumented in this encounter Discontinued Medications Medication Sig Discontinue Reason Start Date End Da te lisinopril (PRINIVIL,ZESTRIL) 5 mg tablet Take 1 tablet (5 mg total) by mouth daily Reorder 01/08/2019 01/03/2020 documented as of this encounter Care Teams Municipal Court Judge Relationship Specialty Start Date End Date Cristian Ling MD [address] [place] [address] PCP - General 10/16/16 documented as of this encounter
--- OUTSIDE RECORDS SUMMARY | 2024-06-12 04:00 | XMS_ITS | Encounter Summary ---
Author Organization [facility] Address [address] [place] [address] Phone Care Team Providers Care Slab Lifting Engineer Name Role Phone Cristian Ling MD Primary Care Prov ider Encounter Details Date Type Department Care Team (Late st Contact Info) Description 11/22/2020 Telephone [facility] Cardiology [address] [facility] 8th [place] [address] [place] [address] Sami Stafford MD [address] [facility] [address] [place], [place] [id number] Social History Tobacco Use Types Packs/Day Years [...] file Legal Sex Female 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 * Telephone Encounter - Deepali Jung RN - 12/04/2020 3:20 PM CDT 12/04- LMOR that clearance has been faxed * Telephone Encounter - Kavitha Yusuf BS - 11/28/2020 1:32 PM CDT PT IS HAVING NO CARDIAC ISSUES OR SYMPTOMS. PT IS FEELING FINE. * Telephone Encounter - Deepali Jung RN - 11/28/2020 10:04 AM CDT 11/28- LMOR to CB to see how she has been doing- any cardiac symptoms or issues? Can address clearance once I speak with pt * Telephone Encounter - Deepali Jung RN - 11/27/2020 3:37 PM CDT 11/27- LMOR to CB to see how pt has been doing * Telephone Encounter - Deepali Jung RN - 11/23/2020 1:58 PM CDT 11/23- received clearance from From Dr. Faith, called pt and LMOR that I will have JS address on Friday and call her back * Telephone Encounter - Kavitha Yusuf BS - 11/23/2020 9:45 AM CDT PT RETURNING CALL. * Telephone Encounter - Deepali Jung RN - 11/22/2020 12:47 PM CDT 11/22- LMOR to CB * Telephone Encounter - Millicent Laguna - 11/22/2020 11:49 AM CDT johnny Pt has eye surgery on 12/[address] Reddy Faith from [facility] will be needing cardiac clearance Office Pt is wondering if there is anything she needs to do to prepare for this procedure documented in this encounter Plan of Treatment Not on file documented as of this encounter Visit Diagnoses Not on filedocumented in this encounter Care Teams Slab Lifting Engineer Relationship Specialty Start Date End Date Cristian Ling MD [address] [place] [address] PCP - General 10/16/16 documented as of this encounter
--- OUTSIDE RECORDS SUMMARY | 2024-06-12 04:00 | XMS_ITS | Encounter Summary ---
Author Organization [facility] Address [address] [facility] [address] [place] [address] Care Team Providers Care Communication Studies Professor Name Role Phone Cristian Ling MD Primary Care Prov ider Reason for Visit * Reason Comments Pain * Consultation (Routine) - Closed Specialty Diagnoses / Procedures Referred By Paula cardona Referred To Contact Orthopedic Surgery Diagnoses Left sided sciatica Cristian Ling MD [address] [place] [address] Phone: tel: fax: Maxx Pratt MD Phone: tel: fax: Referral ID Status Reason Start Date Expiration Date V isits Requested Visits Authorized [id number] Closed Specialty Services Required 01/26/2021 04/20/2022 3 3 Encounter Details Date Type Department Care Team (Late st Contact Info) Description 01/30/2021 11:30 AM CDT Office Visit [facility] [place] [address] [facility] [address] [place] [address] Maxx Pratt MD [address] [facility] [address] [place] [address] Lumbar stenosis with neurogenic claudication [...] on file Legal 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 Gender Identity Female 02/07/2021 4:33 PM CDT Sexual Orientation Straight 02/07/2021 4: 33 PM CDT documented as of this encounter Last Filed Vital Signs Vital Sign Reading Time Taken Comments Blood Pressure 188/69 01/30/2021 11:58 AM CDT Pulse 68 01/30/2021 11:58 AM CDT Temperature - - Respiratory Rate 14 01/30/2021 11:58 AM CDT Oxygen Saturation - - Inhaled Oxygen Concentration - - Weight 79.8 kg (176 lb) 01/30/2021 11:58 AM CDT Height - - Body Mass Index 31.18 09/28/2020 1:48 PM CDT documented in this encounter Progress Notes * Carmen Way RN - 01/30/2021 11:30 AM CDT RN PROGRESS NOTE - FOLLOW UP Last seen September for evaluation of lumbar stenosis with neurogenic claudication Mid back pain extending down to bilateral lower back areas Pain into left leg extending up from ankle into calf and lateral thigh and hip/buttock Was to have Dexa scan and injections with [facility] pain mgmt ?? Continued pain radiating through low back into bilateral legs ?? Now dealing with anterior right leg pain as well ?? Denies weakness feeling in legs ?? Difficulty walking distances or standing for extended timeframe ?? L4-5 MAE x [address] Gonzalez ?? #1 slight improved left thigh pain, #2 slight relief about 4 days after injection and lasted about 4 days, #3 (Jan 15) great relief for 3 days then by the 5th day issues returned * Maxx Pratt MD - 01/30/2021 11:30 AM CDT Images from the original note were not included. Follow-up Office Visit: Ms. Lobato returns to discuss her lumbar stenosis. She has continued painin her back into her bilateral legs with activity and standing which is better with sitting. She also reports anterior right leg pain as well. She denies any ruby weakness in her legs. She has difficulty walking any distances or standing for extended time frame. She underwent [address] Gonzalez which gave great temporary relief with full return of symptoms afterwards. Physical Examination: On examination, she has grossly normal muscle bulk, tone and strength throughout. She can walk on tiptoes and heels. Review of X-rays: Flexion-extension lumbar spine films show no abnormal listhesis on dynamic range of motion. She seems to have some osteopenia versus osteoporosis on x-rays which will be delineated by the DEXA scan. Diagnoses and all orders for this visit: Lumbar stenosis with neurogenic claudication (Primary) Assessment & Plan: Ms. Lobato has severe lumbar stenosis at L4-5 with symptoms of neurogenic claudication. Her x-rays do not show any signs of instability. She still has to get her DEXA scan. We discussed that with ever the lowest number is on the scan, this likely represents her true bone density. Depending on theresults, she would either be a surgical candidate, [...] healthcare worker to help with her . Left sided sciatica - Ambulatory referral to Orthopedic Surgery This document was created using speech voice [...] provider's office for clarification. Maxx Pratt MD, [facility] Neurological Surgery documented in this encounter Miscellaneous Notes * Assessment & Plan Note - Maxx Pratt MD - 01/30/2021 1:01 PM CDT Associated Problem(s): Lumbar stenosis with neurogenic claudication Ms. Lobato has severe lumbar stenosis at L4-5 with symptoms of neurogenic claudication. Her x-rays do not show any signs of instability. She still has to get her DEXA scan. We discussed that with ever the lowest number is on the scan, this likely represents her true bone density. Depending on theresults, she would either be a surgical candidate, [...] healthcare worker to help with her . documented in this encounter Plan of Treatment Not on file documented as of this encounter Visit Diagnoses Diagnosis Lumbar stenosis with neurogenic claudication- Primary Left sided sciatica Sciatica documented in this encounter Historical Medications * This list may reflect changes made after this encounter. gabapentin (NEURONTIN) 100 mg capsule Take by mouth 4 (four) times a day 03/21/2023 added in this encounter Orders Outpatient Referral Count Last Ordered Date Fir st Ordered Date AMB REFERRAL TO ORTHOPEDIC SURGERY 1 2020 documented in this encounter Care Teams Communication Studies Professor Relationship Specialty Start Date End Date Cristian Ling MD [address] [place] [address] PCP - General 10/16/16 documented as of this encounter
--- OUTSIDE RECORDS SUMMARY | 2024-06-12 04:00 | XMS_ITS | Encounter Summary ---
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 Also notes newer onset right groin pain - asking if this is related to current stenosis or if there is something new going on. Discussed could be related or could be additional stenosis above current level. Reviewed prior notes regarding poor bone density and no surgery to be offered by [facility] due to this. Discussed pt could be seen by [facility] for re-evaluation to obtain new MRI for further evaluation for other injections. Also discussed pt could see PCP for this MRI and bypass us since she is not surgical. Pt also asked about warm feeling in her leg - asked if related to back issues - discussed not likely. Asked pt about color or swelling - no swelling but does not slight change in color. Discussed could be related to vascular issues and she should further discuss with PCP. Pt will think about things and let us know if she wants to see the FAMILY RESOURCE MANAGEMENT PROFESSOR. * Telephone Encounter - Tammy Peres - 10/05/2021 9:54 AM CDT Patient call stated having concerns about back and would like call back documented in this encounter Plan of Treatment Not on file documented as of this encounter Visit Diagnoses Not on filedocumented in this encounter Care Teams Master Hearth Technician Relationship Specialty Start Date End Date Cristian Ling MD [address] [place] [address] PCP - General 10/16/16 documented as of this encounter
--- OUTSIDE RECORDS SUMMARY | 2024-06-12 04:00 | XMS_ITS | Encounter Summary ---
Author Organization [facility] Address [address] [facility] [address] [place] [address] Care Team Providers Care Accessibility Lift Technician Name Role Phone Cristian Ling MD Primary Care Prov ider Reason for Referral * Diagnostic Imaging (Routine) - Closed Specialty Diagnoses / Procedures Referred By Contac t Referred To Contact Diagnoses Age-related bone loss Other specified disorders of bone density and structure, other site Procedures DEXA Axial Skeleton Bone Density Multi Site Maxx Pratt MD Phone: tel: fax: External Order Referral ID Status Reason Start Date Expiration Date Visits Re quested Visits Authorized [id number] Closed 01/30/2021 03/01/2022 1 1 Encounter Details Date Type Department Care Team (Late st Contact Info) Description 01/30/2021 Orders Only [facility] [place] [address] [facility] [address] [place] [address] Maxx Pratt MD [address] [facility] [address] [place] [address] Age-related bone loss (Primary Dx); Other specified disorders of bone density and structure, other site Social History Tobacco Use Types Packs/Day Years [...] file Legal Sex Female 7:12 AM HAND I 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 Gender Identity Female 02/07/2021 4:33 PM CDT Sexual Orientation Straight 02/07/2021 4: 33 PM CDT documented as of this encounter Plan of Treatment Scheduled Orders Name Type Priority Associated Diagnoses Orde r Schedule DEXA Axial Skeleton Bone Density Multi Site Imaging Schedule Routine, Read Routine (OP Routine) Age-related bone loss Other specified disorders of bone density and structure, other site Expected: 01/30/2021, Expires: 01/30/2022 documented as of this encounter Visit Diagnoses Diagnosis Age-related bone loss- Primary Disorder of bone and cartilage, unspecified Other specified disorders of bone density and structure, other site documented in this encounter Care Teams Accessibility Lift Technician Relationship Specialty Start Date End Date Cristian Ling MD [address] [place] [address] PCP - General 10/16/16 documented as of this encounter
--- OUTSIDE RECORDS SUMMARY | 2024-06-12 04:00 | XMS_ITS | Encounter Summary ---
Author Organization [facility] Address [address] [place] [address] Phone Care Team Providers Care Kettle Tender Name Role Phone Cristian Ling MD Primary Care Prov ider Reason for Visit * Reason Onset Date Comments Scheduling Appointments 01/24/2021 Encounter Details Date Type Department Care Team (Late st Contact Info) Description 01/24/2021 Telephone [facility] Cardiology [address] [facility] 8th [place] [address] [place] [address] Sami Stafford MD [address] [facility] [address] [place] [address] Scheduling Appointments Social History Tobacco Use Types Packs/Day Years [...] on file Legal Sex Female 7:12 AM GEOLOGY INSTRUCTOR Gender Identity Female 02/07/2021 4:33 PM CDT Sexual Orientation Straight 02/07/2021 4: 33 PM CDT documented as of this encounter Miscellaneous Notes * Telephone Encounter - Jeniffer Moore - 01/30/2021 7:11 AM CDT No response, mailed itinerary * Telephone Encounter - Jeniffer Moore - 01/26/2021 1:18 PM CDT Lmor, moved appt to 02/28 at 11:15, waiting for callback/conf * Telephone Encounter - Viki Faith - 01/24/2021 10:40 AM CDT YULIA PT APPT TIME ON 02/21/2021 WAS RESCHEDULED. PT SAID SHE CAN'T MAKE THAT SHE CAN ONLY COME BETWEEN 11-1. PLS ASSIST documented in this encounter Plan of Treatment Not on file documented as of this encounter Visit Diagnoses Not on filedocumented in this encounter Care Teams Kettle Tender Relationship Specialty Start Date End Date Cristian Ling MD [address] [place] [address] PCP - General 10/16/16 documented as of this encounter
--- OUTSIDE RECORDS SUMMARY | 2024-06-12 04:00 | XMS_ITS | Encounter Summary ---
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 Anywhere we can move her to the a.m. at [facility]? Thanks. * Telephone Encounter - Viki Faith - 12/27/2020 11:02 AM CDT SPOKE W/PT, SHE CAN'T DO AFTERNOON APPOINTMENTS * Telephone Encounter - Jeniffer Moore - 12/26/2020 1:00 PM CDT lmor that we need to move appt to 01/16 or 01/18 (frozen slots) documented in this encounter Plan of Treatment Not on file documented as of this encounter Visit Diagnoses Not on filedocumented in this encounter Care Teams Chief Counsel Relationship Specialty Start Date End Date Cristian Ling MD [address] [place] [address] PCP - General 10/16/16 documented as of this encounter
--- OUTSIDE RECORDS SUMMARY | 2024-06-12 04:00 | XMS_ITS | Encounter Summary ---
Author Organization [facility] Address [address] [place] [address] Phone Care Team Providers Care College [employer] Department Head Name Role Phone Cristian Ling MD Primary Care Prov ider Encounter Details Date Type Department Care Team (Late st Contact Info) Description 05/02/2021 10:15 AM GLASS BLOWER HELPER Office Visit [facility] Cardiology [address] [facility] Advanced [facility] 8th [place] [address] [place] [id number] Sami Stafford MD [address] [facility] [address] [place], [place] [id number] Coronary artery disease involving capitan grande band coronary artery of capitan grande band heart without angina pectoris (Primary Dx); Essential hypertension; Other osteoporosis, unspecified pathological fracture presence Social History Tobacco Use Types Packs/Day Years [...] on file Legal Sex Female 7:12 AM GLASS BLOWER HELPER Gender Identity Female 02/07/2021 4:33 PM CDT Sexual Orientation Straight 02/07/2021 4: 33 PM CDT documented as of this encounter Last Filed Vital Signs Vital Sign Reading Time Taken Comments Blood Pressure 150/78 05/02/2021 10:26 AM GLASS BLOWER HELPER Pulse 62 05/02/2021 10:26 AM GLASS BLOWER HELPER Temperature 36.7 ??C (98.1 ??F) 05/02/2021 1 0:26 AM GLASS BLOWER HELPER Respiratory Rate - - Oxygen Saturation 95% 05/02/2021 10: 26 AM GLASS BLOWER HELPER Inhaled Oxygen Concentration - - Weight 80.2 kg (176 lb 12.8 oz) 021 10:26 AM GLASS BLOWER HELPER Height - - Body Mass Index 31.32 09/28/2020 1:48 PM CDT documented in this encounter Patient Instructions * Patient Instructions* Sami Stafford MD - 05/02/2021 10:15 AM GLASS BLOWER HELPER Referral to Dr. Yaritza Cantu for osteoporosis management. Periodically check your blood pressure. Let me know if it is consistently >135/80 mm Hg. S BLOWER HELPER S BLOWER HELPER documented in this encounter Progress Notes * Sami Stafford MD - 05/02/2021 10:15 AM CST Images from the original note were not included. Department of Medicine Sami Stafford MD, MPHS, [facility] Cardiovascular Division director multiple sclerosis center Patient Name: Tiera Lobato : 1945 Date of Service: 05/02/2021 DIAGNOSES: 1. Coronary artery disease with myocardial infarction in August 2012 followed by bypass surgery by Dr. Irineo Reinoso with LAWSON to LAD and saphenous vein graft to obtuse marginal. 2. Hypertension. 3. Degenerative disc disease. 4. History of diverticulitis. 5. History of vertigo. 6. History of lower extremity DVT with associated phlebitis in the distant past. Dear Cristian Ling MD: We had the pleasure of seeing Tiera Lobato today for follow-up. She is a 76 y.o. woman with a history of coronary disease and myocardial infarction, status post bypass surgery in 2012, hypertension, degenerative disk disease, diverticulitis, vertigo, and lower extremity DVT. She was last seen in our clinic 12/2019. I have a back problem . She describes back pain which radiates down her right leg. She was diagnosed with lumbar spinal stenosis, osteoporosis, and T11 compression fracture. She was told she has insufficient bone mass for surgery. I reviewed Dr. Maxx Pratt's notes. She has not had any cardiac symptoms: chest discomfort, shortness of breath. She has occasional dizziness when she is overexhausted . She has not checked her home bps. She has chronic left>right ankle swelling related to venous insufficiency; this has been slightly worse recently. No orthopnea or PND. She is tolerating her home medications. She is currently on gabapentin 600 mg tid; did not notice worsening swelling with the dosage increase. Outpatient Encounter Medications as of 05/02/2021 Medication Sig Dispense Refill ??? acetaminophen (TYLENOL) 325 mg tablet TAKE 1 TO 2 TABLETS EVERY 6 HOURS NEEDED. ??? alendronate (FOSAMAX) 70 mg tablet TAKE 1 TABLET BY MOUTH ONE TIME PER WEEK 0 ??? aspirin 81 mg tablet daily. ??? atorvastatin (LIPITOR) 80 mg tablet TAKE 1 TABLET AT BEDTIME. ??? calcium carbonate-vitamin D3 500 mg(1,250mg) -400 unit chewable tablet Take 1 tablet by mouth daily. ??? cholecalciferol (VITAMIN D-3) 1,000 unit tablet Take 1,000 Units by mouth daily. ??? cyanocobalamin (Vitamin B-12) 1,000 mcg tablet Take 2,000 mcg by mouth daily ??? diclofenac DR (VOLTAREN) 75 mg EC tablet Take 75 mg by mouth 2 (two) times a day ??? docusate sodium (COLACE) 100 mg capsule TAKE 1 CAPSULE TWICE DAILY NEEDED. ??? ezetimibe (ZETIA) 10 mg tablet TAKE 1 TABLET BY MOUTH EVERY DAY 90 tablet 1 ??? gabapentin (NEURONTIN) 100 mg capsule Take by mouth 3 (three) times a day ??? LINZESS 145 mcg capsule Take by mouth daily. 2 ??? lisinopriL (PRINIVIL,ZESTRIL) 5 mg tablet TAKE 1 TABLET BY MOUTH EVERY DAY 90 tablet 1 ??? metoprolol XL (TOPROL XL) 25 mg 24 hr tablet 12.5 mg daily. ??? multivitamin no.44-vit D3-K 1,000-800 unit-mcg capsule daily. ??? omeprazole (PriLOSEC) 20 mg capsule Take 20 mg by mouth daily ??? sertraline (ZOLOFT) 100 mg tablet Take 50 mg by mouth daily No facility-administered encounter medications on file as of 05/02/2021. Allergies Allergen Reactions ??? Codeine Hives and Shortness of breath ??? Latex Itching ? ? Tramadol Nausea & Vomiting Physical Exam: BP 150/78 (BP Location: Left arm, Patient Position: Sitting) Pulse 62 Temp 36.7 ??C (98.1 ??F) Wt 80.2 kg (176 lb 12.8 oz) SpO2 95% BMI 31.32 kg/m?? BP Readings from Last 3 Encounters: 05/02/21 150/78 01/30/21 (!) 188/69 09/28/20 (!) 171/84 Wt Readings from Last 3 Encounters: 05/02/21 80.2 kg (176 lb 12.8 oz) 01/30/21 79.8 kg (176 lb) 09/28/20 80.5 kg (177 lb 6.4 oz) General: older white woman well-developed, well nourished, no acute distress HEENT: Extraocular muscles intact, conjunctivae clear, anicteric sclera, + dentures Neck: Supple. No goiter. Jugular venous pressure is normal. Respiratory: Clear to auscultation bilaterally; no wheezing/rales/rhonchi; respirations unlabored Cardiovascular: Normal rate and regular rhythm, normal S1 and S2. No S3 or S4. Soft systolic murmurRUSB. Carotid upstrokes brisk bilaterally and without bruits. Abdomen: soft, non-tender, no palpable masses, no hepatosplenomegaly Extremities: no cyanosis or clubbing. No pitting edema but some puffiness of the ankles, L>R. Musculoskeletal: no obvious joint deformities Skin: no obvious rash or bruising Psychiatric: normal affect and mood Neurologic: awake/alert, antalgic gait Results: I have personally reviewed the following: Lab Results Component Value Date SODIUM 141 01/18/2019 POTASSIUM 4.3 01/18/2019 BUNSER 15 01/18/2019 BUNSER 14 05/10/2017 BUNSER 16 09/04/2015 CREATININE 0.88 01/18/2019 CREATININE 0.86 12/23/2018 CREATININE 0.90 05/10/2017 Lab Results Component Value Date CHOL 180 12/23/2018 CHOL 179 09/04/2015 LDL 87 09/04/2015 LDL 118 09/04/2012 LDLDIRECT 90 12/23/2018 ECG 12/29/2019 sinus bradycardia, HR 51, anterolateral TWI in I, aVL, V3-6, normal axis, normal OK, QRS and QT intervals. Assessment/Plan: Tiera Lobato is a 76 y.o. female with the followin. CAD with prior NH and CABG in 2012 (LAWSON-LAD, SVG-OM). She denies any anginal symptoms. Continueaspirin, metoprolol, atorvastatin, ezetimibe. Repeat lipid panel. 2. Hypertension, with elevated bp today in the office. Pain may be contributing. Continue metoprolol and lisinopril. I asked her to monitor her home bps and contact us if consistently>135/80 mm Hg. Repeat BMP. 3. Osteoporosis with pathologic fracture and sig. Back pain. Given her apparently very low bone density, I suggested she might benefit from seeing an orthoporosis specialist, Dr. Cantu, to decrease risk of future fractures. She is on alendronate and vitamin Wale present. Return to clinic in 1 year, sooner if needed. I appreciate the opportunity to participate in Ms. Lobato's care. Please feel free to contact me at with any questions or concerns. Sincerely, Sami Stafford MD, MPHS, FACC director multiple sclerosis center Cardiovascular Division [facility] --- Please note: This note was generated in part using voice-recognition software and may contain bell captain errors. S BLOWER HELPER documented in this encounter Plan of Treatment Not on file documented as of this encounter Results * Lipid panel (05/02/2021 11:19 AM GLASS BLOWER HELPER) Triglycerides 127 0 - 149 mg/dL [facility] Comment: NATIONAL CHOLESTEROL EDUCATION PROGRAM ATP III GUIDELINES FOR ADULTS: Normal: ?<150 mg/dL Borderline High: 150-199 mg/dL High: ?200-499 mg/dL Very High: ? >=500 mg/dL Total Cholesterol 174 0 - 199 mg/dL [facility] Comment: NATIONAL CHOLESTEROL EDUCATION PROGRAM ATP III GUIDELINES FOR ADULTS: Desirable: ? <200 mg/dL Borderline High: 200-239 mg/dL High: ?>=240 mg/dL Total HDL-C Direct 56 >39 mg/dL [facility] Comment: NATIONAL CHOLESTEROL EDUCATION PROGRAM ATP III GUIDELINES FOR ADULTS: Optimal: ?>=60 mg/dL Near Optimal: 40-59 mg/dL High Risk: ?<40 mg/dL [place] LDL Chol 93 0 - 129 mg/dL [facility] Comment: NATIONAL CHOLESTEROL EDUCATION PROGRAM ATP III GUIDELINES FOR ADULTS: Optimal: ? <100 mg/dL Near Optimal: ?100-129 mg/dL Borderline High: 130-159 mg/dL High: ?160-189 mg/dL Very High: ? >=190 mg/dL Blood specimen (specimen) 05/02/2021 11:19 AM GLASS BLOWER HELPER 05/02/2021 12:04 PM GLASS BLOWER HELPER us Sami Stafford MD LAB BLOOD ORDERABLES Final Re sult [facility] * (ABNORMAL) Basic metabolic panel (05/02/2021 11:19 AM GLASS BLOWER HELPER) Glucose 99 64 - 99 mg/dL [facility] Comment: NONFASTING GLUCOSE RANGE = 64-199 mg/dL [...] 04/30/21. Blood specimen (specimen) 05/02/2021 11:19 AM GLASS BLOWER HELPER 05/02/2021 12:04 PM GLASS BLOWER HELPER us Sami Stafford MD LAB BLOOD ORDERABLES Final Re sult [facility] documented in this encounter Visit Diagnoses Diagnosis Coronary artery disease involving capitan grande band coronary artery of capitan grande band heart without angina pectoris- Primary Essential hypertension Unspecified essential hypertension Other osteoporosis, unspecified pathological fracture presence documented in this encounter Care Teams College Or [employer] Department Head Relationship Specialty Start Date End Date Cristian Ling MD [address] [place] [address] PCP - General 10/16/16 documented as of this encounter
--- OUTSIDE RECORDS SUMMARY | 2024-06-12 04:00 | XMS_ITS | Encounter Summary ---
Author Organization [facility] Address [address] [place] [address] Care Team Providers Care Manager E Commerce Name Role Phone Cristian Ling MD Primary Care Prov ider Reason for Visit * Consultation (Routine) - Closed Specialty Diagnoses / Procedures Referred By Paula cardona Referred To Contact Orthopedic Surgery Diagnoses Left sided sciatica Cristian Ling MD [address] [place] [id number] Phone: tel: fax: Maxx Pratt MD Phone: tel: fax: Referral ID Status Reason Start Date Expiration Date V isits Requested Visits Authorized [id number] Closed Specialty Services Required 01/26/2021 04/20/2022 3 3 Encounter Details Date Type Department Care Team (Late st Contact Info) Description 03/07/2021 11:00 AM CDT Telemedicine [facility] [address] [address] [place] [address] Maxx Pratt MD [address] [facility] [address] [place] [address] Other osteoporosis without current pathological fracture (Primary Dx) Social History Tobacco Use Types [...] on file Legal Sex Female 7:12 AM HEALTH CARE COORDINATOR Gender Identity Female 02/07/2021 4:33 PM CDT Sexual Orientation Straight 02/07/2021 4: 33 PM CDT documented as of this encounter Progress Notes * Maxx Pratt MD - 03/07/2021 11:00 AM CDT Images from the original note were not included. Telemedicine Visit This was a telemedicine visit with Tiera Lobato which took place via telephone. During the visit, I was located in the office of [facility] ([address] [place] [address]) and the patient was located at home. Total time spent in chart review, video teleconferencing and documentation was 15 minutes. Patient consented to the consultation via telephone prior to the call. The patient has been informed that the visit may not be secure and acknowledged the information. I have explained the option of participating in a telephone or video visit during the [facility] emergency to the patient. After being given an opportunity to ask questions about and discuss this type of visit, the patient verbally consented to proceeding with the telephone/video visit.The patient understands that this service replaces an office visit and they may be billed and/or responsible for any applicable copayments. The patient reports that she has continued pain and is wondering which direction to take. I reviewed her films and the DEXA scan which shows her to have osteoporosis. On her plain lumbar spine films,the density of her iliac crests are about same as her spine with a T11 compression fracture that was new since 2017. She is at high risk for instability and failure after surgical intervention. I do not feel that she is a surgical candidate. We discussed that if she sought enough other opinions, she would find somebody willing to operate on her. I do not think this would be in her best interest. She understands and agrees. She had questions about alternative treatments. We discussed pros and cons of spinal cord stimulator, chiropractic treatment, acupuncture and other treatments. She had questions about CBD oil. We discussed that I do not have experience with this, but since she is not a candidate for surgical intervention all alternatives treatments are reasonable. We discussed that she should not put a great dealof time or money into any treatment that is not working. She understands and agrees with this. We discussed that her current medications include Neurontin at 900 mg a day. We discussed that the maximum dose is 3600 mg per day and it would be very reasonable for her to increase this dose to seeif it helps with her pain control. She will try to gradually increase this up to 1800 mg day and will follow-up with Dr. Pollard. I would be happy to answer any future questions that arise. Maxx Pratt MD documented in this encounter Plan of Treatment Not on file documented as of this encounter Visit Diagnoses Diagnosis Other osteoporosis without current pathological fracture- Primary documented in this encounter Care Teams Manager E Commerce Relationship Specialty Start Date End Date Cristian Ling MD [address] [place] [address] PCP - General 10/16/16 documented as of this encounter
--- OUTSIDE RECORDS SUMMARY | 2024-06-12 04:00 | XMS_ITS | Encounter Summary ---
Author Organization [facility] Address [address] [place] [address] Phone Care Team Providers Care Cataract Lens Generator Name Role Phone Cristian Ling MD Primary Care Prov ider Reason for Visit * Reason Onset Date Comments Med Refill 12/02/2019 Encounter Details Date Type Department Care Team (Late st Contact Info) Description 12/02/2019 Telephone [facility] Cardiology [address] [facility] 8th [place] [address] [place] [address] Jeniffer Moore Med Refill Social History Tobacco Use Types Packs/Day Years Used Date Smoking Tobacco: Never Smokeless Tobacco: Never Comments Unknown Sex and Gender Information Value Date Recorded Sex Assigned at Not on file Legal Sex Female 7:12 AM ELEVATOR CONSTRUCTOR SUPERVISOR Gender Identity Female 02/07/2021 4:33 PM CDT Sexual Orientation Straight 02/07/2021 4: 33 PM CDT documented as of this encounter Ordered Prescriptions Prescription Sig Dispense Quantity Refills Last Filled Start Date End Date ezetimibe (ZETIA) 10 mg tablet Take 1 tablet (10 mg total) by mouth daily 30 tablet 11 12/02/2019 12/06/2020 documented in this encounter Miscellaneous Notes * Telephone Encounter - Jeniffer Moore - 12/02/2019 9:09 AM CDT Images from the original note were not included. documented in this encounter Plan of Treatment Not on file documented as of this encounter Visit Diagnoses Not on filedocumented in this encounter Discontinued Medications Medication Sig Discontinue Reason Start Date End Da te ezetimibe (ZETIA) 10 mg tablet Take 1 tablet (10 mg total) by mouth daily Reorder 12/24/2018 12/02/2019 documented as of this encounter Care Teams Cataract Lens Generator Relationship Specialty Start Date End Date Cristian Ling MD [address] [place] [address] PCP - General 10/16/16 documented as of this encounter
--- OUTSIDE RECORDS SUMMARY | 2024-06-12 04:00 | XMS_ITS | Encounter Summary ---
Author Organization [facility] Address [address] [place] [address] Phone Care Team Providers Care Smoke Tester Name Role Phone Cristian Ling MD Primary Care Prov ider Reason for Referral * (Routine) - Closed Specialty Diagnoses / Procedures Referred By Contac t Referred To Contact Diagnoses Coronary artery disease involving paiute-shoshone coronary artery of paiute-shoshone heart without angina pectoris Procedures ECG 12 lead Sami Stafford MD Phone: tel: fax: [facility] (All Locations) Referral ID Status Reason Start Date Expiration Date Visits Re quested Visits Authorized [id number] Closed 12/29/2019 07/09/2021 1 1 Reason for Visit * Cardiology (Routine) - Closed Specialty Diagnoses / Procedures Referred By Contac t Referred To Contact Cardiology Diagnoses Cardiovascular disease Cristian Ling MD [address] [place] [address] Phone: tel: fax: Sami Stafford MD [address] [address] Phone: tel: fax: Referral ID Status Reason Start Date Expiration Date V isits Requested Visits Authorized [id number] Closed Specialty Services Required 12/22/2019 03/23/2020 3 3 Encounter Details Date Type Department Care Team (Late st Contact Info) Description 12/29/2019 11:15 AM CDT Office Visit [facility] Cardiology [address] 8th [place] [address] [place] [address] Sami Stafford MD [address] [place] [address] Coronary artery disease involving paiute-shoshone coronary artery of paiute-shoshone heart without angina pectoris (Primary Dx); Cardiovascular disease; Essential hypertension; Other chest pain Social History Tobacco Use Types Packs/Day Years Used Date Smoking Tobacco: Never Smokeless Tobacco: Never Comments Unknown Sex and Gender Information Value Date Recorded Sex Assigned at Not on file 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 Gender Identity Female 02/07/2021 4:33 PM CDT Sexual Orientation Straight 02/07/2021 4: 33 PM CDT documented as of this encounter Last Filed Vital Signs Vital Sign Reading Time Taken Comments Blood Pressure 156/82 12/29/2019 11:24 AM CDT Pulse 54 12/29/2019 11:24 AM CDT Temperature 36.9 ??C (98.5 ??F) 12/29/2019 1 1:24 AM CDT Respiratory Rate - - Oxygen Saturation 100% 12/29/2019 11: 24 AM CDT Inhaled Oxygen Concentration - - Weight 78.8 kg (173 lb 12.8 oz) 020 11:24 AM CDT Height - - Body Mass Index 29.83 12/23/2018 11:01 AM CDT documented in this encounter Patient Instructions * Patient Instructions* Sami Stafford MD - 12/29/2019 11:15 AM CDT Monitor your blood pressure 2 times daily (morning before medications, evening before dinner) for 1week, then call with the readings. If we need to adjust your lisinopril dose, we will check labs (BMP and lipids) after the dosage change. Otherwise, we can check them after we hear back about your blood pressure. Stay safe and be well! documented in this encounter Progress Notes * Sami Stafford MD - 12/29/2019 11:15 AM CDT Images from the original note were not included. Department of Medicine Sami Stafford MD, MPHS, [facility] Cardiovascular Division Land Development Managerfruit or nut picker Patient Name: Tiera Lobato : 1945 Date of Service: 12/29/2019 DIAGNOSES: 1. Coronary artery disease with myocardial [...] Lobato today for follow-up. She is a 74 y.o. woman with a history of coronary disease and myocardial infarction, status post bypass surgery in 2012, hypertension, degenerative disk disease, diverticulitis, vertigo, and lower extremity DVT. She was last seen in our clinic 12/2018. No ED visits or hospitalizations since then. She does endorse a 6 month history of intermittent chest discomfort. Describes as shocking sensation at site of prior sternotomy. Lasts up to one minute. No precipitating or alleviating factors. Reproducible with palpation. Discomfort different in nature to prior ME. Very variable frequency as it may occur three times per week and then once per month. Not increasing in frequency or intensity. Will occasionally feel short of breath after climbing 2 flights of steps at home. This is new over the past 6 months. She has chronic mild swelling in LE related to venous insufficiency but denies any worsening swelling. No orthopnea or PND. Has gained some weight which she attributes to inactivityfrom [place]. She does walk for exercise 30 minutes, 3 days/week. BP today 156/82. Does not check BP at home. Denies lightheadedness, dizziness or syncope. Lisinopril 5 mg daily was initiated following clinic appointment one year ago. Outpatient Encounter Medications as of 12/29/2019 Medication Sig Dispense Refill ??? acetaminophen (TYLENOL) [...] NEEDED. ??? ezetimibe (ZETIA) 10 mg tablet Take 1 tablet (10 mg total) by mouth daily 30 tablet 11 ??? LINZESS 145 mcg capsule Take by mouth daily. 2 ??? lisinopril (PRINIVIL,ZESTRIL) 5 mg tablet Take 1 tablet (5 mg total) by mouth daily 30 tablet 11 ??? metoprolol XL (TOPROL XL) 25 mg 24 hr tablet 12.5 mg daily. ??? multivitamin no.44-vit D3-K 1,000-800 unit-mcg capsule daily. ??? sertraline (ZOLOFT) 100 mg tablet Take 50 mg by mouth daily ??? [DISCONTINUED] NON-ASPIRIN EXTRA STRENGTH 500 mg tablet Take by mouth every 8 (eight) hours as needed. 0 ??? [DISCONTINUED] omeprazole (PriLOSEC) 20 mg capsule daily. ??? [DISCONTINUED] predniSONE (DELTASONE) 10 mg tablet TAKES 6 TABS BY MOUTH FOR 3 DAYS, 4 TABS FOR3 DAYS, 2 TABS FOR 3 DAYS AND 1 TAB FOR 4 DAYS No facility-administered encounter medications on file as of 12/29/2019. Allergies Allergen Reactions ??? Codeine Hives and Shortness of breath ??? Latex Itching ? ? Tramadol Nausea & Vomiting Physical Exam: BP 156/82 (BP Location: Left arm, Patient Position: Sitting) Pulse 54 Temp 36.9 ??C (98.5 ??F) (Oral) Wt 78.8 kg (173 lb 12.8 oz) SpO2 100% BMI 29.83 kg/m?? BP Readings from Last 3 Encounters: 12/29/19 156/82 12/23/18 159/81 12/10/17 134/82 Wt Readings from Last 3 Encounters: 12/29/19 78.8 kg (173 lb 12.8 oz) 12/23/18 76.5 kg (168 lb 9.6 oz) 12/10/17 76.8 kg (169 lb 6.4 oz) General: older white woman well-developed, well nourished, no acute distress HEENT: Extraocular muscles intact, conjunctivae clear, anicteric sclera, + dentures Neck: Supple. No goiter. Jugular venous pressure is normal. Respiratory: Clear to auscultation bilaterally; no wheezing/rales/rhonchi; respirations unlabored Cardiovascular: Normal rate and regular rhythm, normal S1 and S2. No S3 or S4. Soft systolic murmur. Carotid upstrokes brisk bilaterally and without bruits. Abdomen: soft, non-tender, no palpable masses, no hepatosplenomegaly Extremities: no cyanosis or clubbing. No pitting edema but some puffiness of the ankles, L>R. Nopalpable venous cord. Musculoskeletal: no obvious joint deformities Skin: no obvious rash or bruising Psychiatric: normal affect and mood Neurologic: awake/alert, no focal deficits Results: I have personally reviewed the following: [...] in I, aVL, V3-6, normal axis, normal MI, QRS and QT intervals. Assessment/Plan: Tiera Lobato is a 74 y.o. female with the followin. CAD with prior ME and CABG. Continue aspirin, metoprolol, atorvastatin, ezetimibe. Plan to obtain lipid panel at time of BMP (see below). 2. Hypertension, BP elevated today. Continue metoprolol and lisinopril. Patient advised to check bp as an outpatient and call with the readings. Will uptitrate lisinopril as able. If dose adjustment made, plan for BMP 1 week after dose change. If no dose adjustment, obtain BMP at time of following up readings. 3. Chest pain. Suspect MSK etiology. Encouraged patient to trial OTC lidocaine patch or OTC topicaldiclofenac (limited duration) if she has recurrent symptoms. Return to clinic in 1 year, sooner if needed. I appreciate the opportunity to participate in Ms. Lobato's care. Please feel free to call with any questions or concerns. Sincerely, Ricki Blancas MD hedge fund accountant Attending Attestation I have seen and examined Tiera Lobato on 12/29/2019. I agree with the findings and plan of careas documented in the resident's/fellow's note. She describes some midsternal chest pain during the evening, feels like needles, lasts seconds to <1 minute. No clear triggers,resolves spontaneously. Does not feel like anginal pain prior to CABG(had left arm discomfort and generalized malaise with ME in 2012). Impression: current chest pain unlikely to represent angina, plan as above. It was a pleasure to see Ms. Lobato in clinic today. Thank you for allowing me to participate in her care. Please feel free to call with any questions or concerns. Respectfully, Sami Stafford MD, MPHS, FACC Land Development Managerfruit or nut picker Cardiovascular Division [facility] documented in this encounter Plan of Treatment Not on file documented as of this encounter Procedures Procedure Name Priority Date/Time Associated Diagnosis Comments ECG 12-LEAD Routine 12/29/2019 Coronary artery disease involving paiute-shoshone coronary artery of paiute-shoshone heart without angina pectoris documented in this encounter Results * ECG 12 lead (12/29/2019) us Sami Stafford MD ECG ORDERABLES Edited Result - Final documented in this encounter Visit Diagnoses Diagnosis Coronary artery disease involving paiute-shoshone coronary artery of paiute-shoshone heart without angina pectoris- Primary Cardiovascular disease Unspecified cardiovascular disease Essential hypertension Unspecified essential hypertension Other chest pain documented in this encounter Discontinued Medications Medication Sig Discontinue Reason Start Date End Da te NON-ASPIRIN EXTRA STRENGTH 500 mg tablet Take by mouth every 8 (eight) hours as needed. 10/15/2017 12/29/2019 omeprazole (PriLOSEC) 20 mg capsule daily. 12/29/2019 predniSONE (DELTASONE) 10 mg tablet TAKES 6 TABS BY MOUTH FOR 3 DAYS, 4 TABS FOR 3 DAYS, 2 TABS FOR 3 DAYS AND 1 TAB FOR 4 DAYS 09/14/2019 12/29/2019 documented as of this encounter Historical Medications * This list may reflect changes made after this encounter. sertraline (ZOLOFT) 100 mg tablet Take 0.5 tablets (50 mg total) by mouth daily 11/09/2019 02/23/2024 predniSONE (DELTASONE) 10 mg tablet TAKES 6 TABS BY MOUTH FOR 3 DAYS, 4 TABS FOR 3 DAYS, 2 TABS FOR 3 DAYS AND 1 TAB FOR 4 DAYS 09/14/2019 12/29/[address] (VOLTAREN) 75 mg EC tablet Take 1 tablet (75 mg total) by mouth 2 (two) times a day 11/04/2019 11/25/2023 added in this encounter Orders Outpatient Referral Count Last Ordered Date Fir st Ordered Date AMB REFERRAL TO CARDIOLOGY 1 12/29/2019 documented in this encounter Care Teams Smoke Tester Relationship Specialty Start Date End Date Cristian Ling MD [address] [place] [address] PCP - General 10/16/16 documented as of this encounter
--- OUTSIDE RECORDS SUMMARY | 2024-06-12 04:00 | XMS_ITS | Encounter Summary ---
Author Organization [facility] Address [address] [place] [address] Phone Care Team Providers Care Cellular Phone Repairer Name Role Phone Cristian Ling MD Primary Care Prov ider Encounter Details Date Type Department Care Team (Late st Contact Info) Description 08/31/2020 Telephone [facility] Neurosurgery [address] [facility] 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 * Telephone Encounter - Urvashi Haney BS - 08/31/2020 4:20 PM CDT lvm * Telephone Encounter - Christiana Patel - 08/31/2020 4:09 PM CDT New pt ref Dx: lateral left leg pain, disc issue at L4/L5, L5 nerve root pressure Items received: - essence card - 04/16/20 note -02/03/20 note -referral order documented in this encounter Plan of Treatment Not on file documented as of this encounter Visit Diagnoses Not on filedocumented in this encounter Care Teams Cellular Phone Repairer Relationship Specialty Start Date End Date Cristian Ling MD [address] [place] [address] PCP - General 10/16/16 documented as of this encounter
--- OUTSIDE RECORDS SUMMARY | 2024-06-12 04:00 | XMS_ITS | Encounter Summary ---
Author Organization [facility] Address [address] [place] [address] Phone Care Team Providers Care Train Driver Name Role Phone Cristian Ling MD Primary Care Prov ider Encounter Details Date Type Department Care Team (Late st Contact Info) Description 11/28/2020 Telephone [facility] Cardiology [address] [facility] [address] 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 Gender Identity Female 02/07/2021 4:33 PM CDT Sexual Orientation Straight 02/07/2021 4: 33 PM CDT documented as of this encounter Miscellaneous Notes * Telephone Encounter - Deepali Jung RN - 11/28/2020 10:02 AM CDT Please see current open encounter * Telephone Encounter - Norma Landry - 11/28/2020 9:23 AM CDT Rivera Returning your call about her cataract surgery documented in this encounter Plan of Treatment Not on file documented as of this encounter Visit Diagnoses Not on filedocumented in this encounter Care Teams Train Driver Relationship Specialty Start Date End Date rCistian Ling MD [address] [place] [address] PCP - General 10/16/16 documented as of this encounter
--- OUTSIDE RECORDS SUMMARY | 2024-06-12 04:00 | XMS_ITS | Encounter Summary ---
Author Organization [facility] Address [address] [place] [address] Care Team Providers Care Sheet Catcher Name Role Phone Cristian Ling MD Primary Care Prov ider Encounter Details Date Type Department Care Team (Late st Contact Info) Description 01/30/2021 Documentation [facility] [place] [address] 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 Copy of order mailed to patient. Pt is aware. documented in this encounter Plan of Treatment Not on file documented as of this encounter Visit Diagnoses Not on filedocumented in this encounter Care Teams Sheet Catcher Relationship Specialty Start Date End Date Cristian Ling MD [address] [place] [address] PCP - General 10/16/16 documented as of this encounter
--- OUTSIDE RECORDS SUMMARY | 2024-06-12 04:00 | XMS_ITS | Encounter Summary ---
Author Organization [facility] Address [address] [place] [address] Care Team Providers Care Non Clinical Advisor Name Role Phone Cristian Ling MD Primary Care Prov ider Reason for Referral * Diagnostic Imaging (Routine) - Closed Specialty Diagnoses / Procedures Referred By Contac t Referred To Contact Diagnoses Lumbar stenosis with neurogenic claudication Procedures XR Spine Lumbar Flex Ext Only 2 Views Maxx Pratt MD Phone: tel: fax: [facility] [id number] [place] [address] Referral ID Status Reason Start Date Expiration Date Visits Re quested Visits Authorized [id number] Closed 10/03/2020 11/02/2021 1 1 Reason for Visit * Diagnostic Imaging (Routine) - Closed Specialty Diagnoses / Procedures Referred By Contac t Referred To Contact Diagnoses Lumbar stenosis with neurogenic claudication Procedures XR Spine Lumbar Flex Ext Only 2 Views Maxx Pratt MD Phone: tel: fax: [facility] [address] [place] [address] Referral ID Status Reason Start Date Expiration Date Visits Re quested Visits Authorized [id number] Closed 10/03/2020 11/02/2021 1 1 Encounter Details Date Type Department Care Team (Latest Contact Info) Description 01/30/2021 10:36 AM CDT - 01/30/2021 11:59 PM CDT Hospital Encounter [facility] [address] [place] [address] Lumbar stenosis with neurogenic claudication Discharge Disposition: Discharge to home or self [...] file Legal 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 09/21/2012 03/21/2023 atorvastatin (LIPITOR) 80 mg tablet TAKE 1 TABLET AT BEDTIME. 09/21/2012 03/21/2023 calcium carbonate-vitamin D3 500 mg(1,250mg) -400 unit chewable tablet Take 1 tablet by mouth daily 03/21/2023 cholecalciferol (VITAMIN D-3) 1,000 unit tablet Take [...] 1 CAPSULE TWICE DAILY NEEDED. 09/21/2012 03/21/2023 ezetimibe (ZETIA) 10 mg tablet TAKE 1 TABLET BY MOUTH EVERY DAY 30 tablet 1 12/06/2020 02/05/2021 gabapentin (NEURONTIN) 100 mg capsule Take by mouth 4 (four) times a day 03/21/2023 LINZESS 145 mcg capsule Take by mouth daily. 2 11/25/2017 03/21/2023 lisinopriL (PRINIVIL,ZESTRIL ) 5 mg tablet TAKE 1 TABLET BY MOUTH EVERY DAY 90 tablet 1 01/01/2021 06/27/2021 metoprolol XL (TOPROL-XL) 25 mg extended release [...] Name Priority Date/Time Associated Diagnosis Comments XR LUMBAR SPINE FLEX EXT ONLY Schedule Routine, Read Routine (OP Routine) 01/30/2021 10:49 AM CDT Lumbar stenosis with neurogenic claudication documented in this encounter Results * XR Spine Lumbar [...] aorta. Electronically signed by: Parker Nur M.D. Maxx Pratt MD IMG XR PROCEDURES Final Resul t documented in this encounter Visit Diagnoses Diagnosis Lumbar stenosis with neurogenic claudication documented in this encounter Care Teams Non Clinical Advisor Relationship Specialty Start Date End Date Cristian Ling MD [address] [place] [address] PCP - General 10/16/16 documented as of this encounter
--- OUTSIDE RECORDS SUMMARY | 2024-06-12 04:00 | XMS_ITS | Encounter Summary ---
Author Organization [facility] Address [address] [place] [address] Phone Care Team Providers Care Recreation Coordinator Name Role Phone Cristian Ling MD Primary Care Prov ider Encounter Details Date Type Department Care Team (Late st Contact Info) Description 05/07/2021 Telephone [facility] Cardiology [address] [facility] Advanced [facility] 8th [place] [address] [place] [address] Sami Stafford MD [address] [facility] [facility] [place], [place] [id number] Social History Tobacco Use Types Packs/Day Years [...] on file Legal 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 Stafford to send a Fax to Dr. Pollard for Bone and mineral for a referral to Dr. Piper Cantu. Please call if questions. ET ENGINEER documented in this encounter Plan of Treatment Not on file documented as of this encounter Visit Diagnoses Not on filedocumented in this encounter Care Teams Recreation Coordinator Relationship Specialty Start Date End Date Cristian Ling MD [address] [place] [address] PCP - General 10/16/16 documented as of this encounter
--- OUTSIDE RECORDS SUMMARY | 2024-06-12 04:00 | XMS_ITS | Encounter Summary ---
Author Organization [facility] Address [address] 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 documented in this encounter Plan of Treatment Not on file documented as of this encounter Visit Diagnoses Not on filedocumented in this encounter Care Teams Swimming Instructor Relationship Specialty Start Date End Date Cristian Ling MD [address] [place] [address] PCP - General 10/16/16 documented as of this encounter
--- OUTSIDE RECORDS SUMMARY | 2024-06-12 04:01 | XMS_ITS | Encounter Summary ---
Author Organization [facility] Facility Care Team Providers Care Launch Manager Name Role Phone Unavailable Primary Care Provider Unavailabl e Encounter Details Date Type Department Care Team (Latest Contact Info) Description 10/05/2012 - 10/05/2012 11:59 PM CDT Hospital Encounter [facility] Beth Cee MD [phone] [place] [address] Other follow-up examination; Postsurgical aortocoronary bypass status; Pleural effusion; Pulmonary collapse Social History Tobacco Use Types Packs/Day Years Used Date Smoking Tobacco: Never Assessed Comments Unknown Sex and Gender Information Value Date Recorded Sex Assigned at Not on file 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 09/21/2012 03/21/2023 atorvastatin (LIPITOR) 80 mg tablet TAKE 1 TABLET AT BEDTIME. 09/21/2012 03/21/2023 clopidogrel (PLAVIX) 75 mg tablet daily. 09/21/2012 12/10/2017 docusate sodium (COLACE) 100 mg capsuleIndication s:constipation TAKE 1 CAPSULE TWICE DAILY NEEDED. 09/21/2012 03/21/2023 metoprolol XL (TOPROL-XL) 25 mg extended release tablet 0.5 tablets (12.5 mg total) daily 09/21/2012 06/11/2022 ondansetron (ZOFRAN) 4 mg tablet every 6 hours. 09/23/2012 12/10/2017 documented as of this encounter Plan of Treatment Not on file documented as of this encounter Procedures Procedure Name Priority Date/Time Associated Diagnosis Comments DISCHARGE LABORATORY CUMULATIVE REPORT Routine 10/05/2012 5:11 PM CDT CHEST RADIOGRAPHY, FRONTAL (AP), LATERAL Routine 10/05/2012 10:25 AM CDT PLASMA BASIC METABOLIC PANEL Routine 10/05/2012 8:05 AM CDT BLOOD B-TYPE NATRIURETIC PEPTIDE (BNP) Routine 10/05/2012 8:05 AM CDT BLOOD CELL COUNT (CBC) Routine 10/05/2012 8:05 AM CDT documented in this encounter Results * Discharge Laboratory Cumulative Report (10/05/2012 5:11 PM CDT) 10/05/2012 5:11 PM CDT Narrative HISTORICAL RESULTS - 10/05/2012 5:11 PM CDT ? [facility] ? Department of Laboratories ?[facility] [address] ?Heart ?? and ?? Vascular ?Center ?[address] [facility] Patient Name: ? JAMES LOBATO Med Rec Number: ?? [id number] Date of : ?1945 Gender/Age: ? Female 67 years Doctor: ? Beth Reinoso M.D. Report Date/Time: 10/05/2012 17:11 ?* Abnormal ??C Critical ??f Footnote ??^ Corrected ??L Low ??H High ?i Interp Data ??@ Reference Lab ?Chart Type: Cumulative ? CHEMISTRY ? Standard Blood Chemistry ?10/05/2012 ?13:05:00 Test ?Units ?? Reference Sodium ?142 ? mmol/L ??135-145 Plasma Potassium ??4.4 ? mmol/L ??3.3-4.9 Chloride ?106 ? mmol/L ??97-110 Total CO2 ? 27 ?mmol/L ??22-32 Anion Gap ? 9 ? mmol/L ??0-16 BUN ? 14 ?mg/dL ?? 8-25 Creatinine ?0.94 ?mg/dL ?? 0.60-1.10 Glucose ? 109 ? mg/dL ?? 65-199 Total Calcium ? 11.0 ??H ? mg/dL ?? 8.6-10.3 10/05/2012 13:05:00 ??Basic Met Plas: LAB Frequency Standing Order? No Expiration Date: ? Cardiac Proteins ?10/05/2012 ?13:05:00 Test ?Units ??Reference BNP ?? 155 ??H ?pg/mL ??0-100 10/05/2012 13:05:00 ??BNPeptide: LAB Frequency Standing Order? No Expiration Date: ?HEMATOLOGY ?Standard Hematology ?10/05/2012 ?13:05:00 Test ?Units ?? Reference WBC ? 5.8 ? K/cumm ??3.8-9.8 RBC ? 4.27 ?M/cumm ??3.90-5.00 Hgb ? 12.2 ?g/dL ?12.1-15.1 Hct ? 37.3 ?% ? 36.1-44.[address] ? 247 ? K/cumm ??140-440 MCV ? 87.4 ?fL ?80.0-97.6 MCH ? 28.6 ?pg ?26.7-33.7 MCHC ?32.8 ?g/dL ?32.7-35.5 RDW ? 14.7 ??H ? % ? 11.8-14.6 MPV ? 9.6 ? fL ?6.8-10.4 Neut Pct Auto ?? 56.3 ?% ? 38.7-74.5 Lymph Pct Auto ??30.5 ?% ? 20.0-54.3 [place] Pct Auto ?? 10.8 ?% ? 4.3-13.5 Eos Pct Auto ?1.5 ? % ? 0.0-6.0 Baso Pct Auto ?? 0.9 ? % ? 0.0-3.0 Neut Abs Auto ?? 3.3 ? K/cumm ??1.8-6.6 Lymph Abs Auto ??1.8 ? K/cumm ??1.2-3.3 [place] Abs Auto ?? 0.6 ? K/cumm ??0.2-1.2 Eos Abs Auto ?0.1 ? K/cumm ??0.0-0.5 Baso Abs Auto ?? 0.1 ? K/cumm ??0.0-0.2 10/05/2012 13:05:00 ??CBC: LAB Frequency Standing Order? No Expiration Date: us Historical Provider LAB BLOOD ORDERABLES Caitlyn l Result HISTORICAL RESULTS * CHEST RADIOGRAPHY, FRONTAL (AP), LATERAL (10/05/2012 10:25 AM CDT) Anatomical Region Laterality Modality N/A Radiographic Salima ging 10/05/2012 10:2 5 AM CDT Narrative 10/05/2012 11:58 AM CDT NATALIA SAWYER M.D. KANE JIMENEZ, FINAL REPORT The radiology attending physician has personally reviewed this study, and has reviewed and/or edited this written report and agrees with it. ACC# ??Date Time ??Exam [id number] Oct 05, 2012 10:25:00 [id number] Chest 2 views Frontl & Lat EXAMINATION: ?? chest radiograph, two views IMPRESSION: ?? Comparison is made to prior study on 10/05/2012. Previously seen right internal jugular central venous catheter has been removed. Median sternotomy wires are unchanged. The small left pleural effusion and left basilar atelectasis have improved, with only a trace residual left effusion present today. The lungs are clear. The heart is normal in size. There is no pneumothorax. Requested By: BETH REINOSO ??MTiti. Dictated By: ?? KANE JIMENEZ, ?? on Oct 05 2012 11:04A This document has been electronically signed by: NATALIA SAWYER M.D. on Oct 05 2012 11:58A Procedure Note Provider, MD Fidel - 10/12/2016 NATALIA SAWYER M.D. KANE JIMENEZ, FINAL REPORT The radiology attending physician has personally reviewed this study, and has reviewed and/or edited this written report and agrees with it. ACC# Date Time Exam [id number] Oct 05, 2012 10:25:00 [id number] Chest 2 views Frontl & Lat EXAMINATION: chest radiograph, two views IMPRESSION: Comparison is made to prior study on 10/05/2012. Previously seen right internal jugular central venous catheter has been removed. Median sternotomy wires are unchanged. The small left pleural effusion and left basilar atelectasis have improved, with only a trace residual left effusion present today. The lungs are clear. The heart is normal in size. There is no pneumothorax. Requested By: BETH REINOSO M.D. Dictated By: KANE JIMENEZ, on Oct 05 2012 11:04A This document has been electronically signed by: NATALIA SAWYER M.D. on Oct 05 2012 11:58A Historical Provider IMG XR PROCEDURES Final R esult * (ABNORMAL) Plasma basic metabolic panel (10/05/2012 8:05 AM CDT) Sodium 142 135 - 145 mmol/L HISTORICAL RESULTS K, pl 4.4 3.3 - 4.9 mmol/L HISTORICAL RESULTS Chloride 106 97 - 110 mmol/L HISTORICAL RESULTS CO2 27 22 - 32 mmol/L HISTORICAL RESULTS A. gap 9 0 - 16 mmol/L HISTORICAL RESULTS Glucose 109 65 - 199 mg/dl HISTORICAL RESULTS BUN 14 8 - 25 mg/dl HISTORICAL RESULTS Creatinine 0.94 0.60 - 1.10 mg/dl HISTORICAL RESULTS Calcium 11.0(H) 8.6 - 10.3 mg/dl HISTORICAL RESULTS Plasma 10/05/2012 8:05 AM CDT Narrative HISTORICAL RESULTS - 10/05/2012 8:47 AM CDT LAB Frequency Standing Order? No Expiration Date: Beth Reinoso MD LAB BLOOD ORDERABLES Final Re sult HISTORICAL RESULTS * (ABNORMAL) Blood cell count (CBC) (10/05/2012 8:05 AM CDT) WBC 5.8 3.8 - 9.8 K/cumm HISTORICAL RESULTS RBC 4.27 3.90 - 5.00 M/cumm HISTORICAL RESULTS Hgb 12.2 12.1 - 15.1 g/dl HISTORICAL RESULTS Hct 37.3 36.1 - 44.3 % HISTORICAL RESULTS MCV 87.4 80.0 - 97.6 fl HISTORICAL RESULTS MCH 28.6 26.7 - 33.7 pg HISTORICAL RESULTS MCHC 32.8 32.7 - 35.5 g/dl HISTORICAL RESULTS Rdw 14.7(H) 11.8 - 14.6 % HISTORICAL RESULTS Platelets 247 140 - 440 K/cumm HISTORICAL RESULTS MPV 9.6 6.8 - 10.4 fl HISTORICAL RESULTS Neutrophils 56.3 38.7 - 74.5 % HISTORICAL RESULTS Lymphocytes 30.5 20.0 - 54.3 % HISTORICAL RESULTS Monos 10.8 4.3 - 13.5 % HISTORICAL RESULTS Eosinophils 1.5 0.0 - 6.0 % HISTORICAL RESULTS Basophils 0.9 0.0 - 3.0 % HISTORICAL RESULTS Neutrophils, abs 3.3 1.8 - 6.6 K/cumm HISTORICAL RESULTS Lymphocytes, abs 1.8 1.2 - 3.3 K/cumm HISTORICAL RESULTS Monocytes, absolute 0.6 0.2 - 1.2 K/cumm HISTORICAL RESULTS Eosinophils, abs 0.1 0.0 - 0.5 K/cumm HISTORICAL RESULTS Basophils, abs 0.1 0.0 - 0.2 K/cumm HISTORICAL RESULTS Blood specimen (specimen) 10/05/2012 8:05 AM CDT Narrative HISTORICAL RESULTS - 10/05/2012 8:27 AM CDT LAB Frequency Standing Order? No Expiration Date: us Beth Reinoso MD LAB BLOOD ORDERABLES Final Re sult HISTORICAL RESULTS * (ABNORMAL) Blood B-type natriuretic peptide (BNP) (10/05/2012 8:05 AM CDT) BNP 155(H) 0 - 100 pg/ml HISTORICAL RESULTS Blood specimen (specimen) 10/05/2012 8:05 AM CDT Narrative HISTORICAL RESULTS - 10/05/2012 9:04 AM CDT LAB Frequency Standing Order? No Expiration Date: us Beth Reinoso MD LAB BLOOD ORDERABLES Final Re sult HISTORICAL RESULTS documented in this encounter Visit Diagnoses Diagnosis Other follow-up examination Postsurgical aortocoronary bypass status Pleural effusion Unspecified pleural effusion Pulmonary collapse documented in this encounter
--- OUTSIDE RECORDS SUMMARY | 2024-06-12 04:01 | XMS_ITS | Encounter Summary ---
Author Organization [facility] Address [address] [place] [address] Phone Care Team Providers Care Architectural Design Professor Name Role Phone Cristian Ling MD Primary Care Prov ider Encounter Details Date Type Department Care Team (Late st Contact Info) Description 12/23/2018 12:10 PM CDT Lab [facility] Endocrinology Metabolism and Lipid [address] [facility] [address] [place] [address] [place] [address] Coronary artery disease involving [place] coronary artery of [place] heart without angina pectoris; Essential hypertension; Leg edema Social History Tobacco Use Types Packs/Day Years Used Date Smoking Tobacco: Never Smokeless Tobacco: Never Comments Unknown Sex and Gender Information Value Date Recorded Sex Assigned at Not on file 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 Gender Identity Female 02/07/2021 4:33 PM CDT Sexual Orientation Straight 02/07/2021 4: 33 PM CDT documented as of this encounter Plan of Treatment Not on file documented as of this encounter Procedures Procedure Name Priority Date/Time Associated Diagnosis Comments TSH Routine 12/23/2018 12:19 PM CDT Essential hypertension Leg edema LIPID PANEL Routine 12/23/2018 12:19 PM CDT Coronary artery disease involving [place] coronary artery of [place] heart without angina pectoris BASIC METABOLIC PANEL Routine 12/23/2018 12:19 PM CDT Essential hypertension documented in this encounter Results * TSH (12/23/2018 12:19 PM CDT) TSH (Thyrotropin) 0.92 0.27 - 4.20 uIU/mL [facility] Comment:* Please note update d reference range for TSH effective 08/20/18 * Blood specimen (specimen) 12/23/2018 12:19 PM CDT 12/23/2018 1:10 PM CDT us Sami Stafford MD LAB BLOOD ORDERABLES Final Re sult [facility] * (ABNORMAL) Basic metabolic panel (12/23/2018 12:19 PM CDT) Glucose 101(H) 64 - 99 mg/dL [facility] Comment: NONFASTING GLUCOSE RANGE = 64-199 mg/dL ? FASTING GLUCOSE 64 - 99 = NORMAL ? FASTING GLUCOSE 100 - 125 = IMPAIRED FASTING GLUCOSE ? FASTING GLUCOSE >=126 = PROVISIONAL DIAGNOSIS OF DIABETES Potassium 4.7 3.3 - 5.1 mmol/L [facility] Creatinine 0.86 0.60 - 1.10 mg/dL [facility] BUN 14 7 - 23 mg/dL [facility] Sodium 139 135 - 145 mmol/L [facility] Chloride 105 95 - 107 mmol/L [facility] CO2 Content 24 21 - 29 mmol/L [facility] Calcium 9.9 8.6 - 10.3 mg/dL [facility] eGFR NON-AFR. TANZANIAN 67.5 >60.0 mL/min/1.7 3 m2 [facility] eGFR 78.2 >60.0 mL/min/1.7 3 m2 [facility] Blood specimen (specimen) 12/23/2018 12:19 PM CDT 12/23/2018 1:10 PM CDT us Sami Stafford MD LAB BLOOD ORDERABLES Final Re sult [facility] * (ABNORMAL) Lipid panel (12/23/2018 12:19 PM CDT) Triglycerides 163(H) 0 - 149 mg/dL [facility] Total Cholesterol 180 0 - 199 mg/dL [facility] Comment: NATIONAL CHOLESTEROL EDUCATION PROGRAM ATP III GUIDELINES FOR ADULTS ? BORDERLINE ?? INTERPRETATION ?OPTIMAL ?? DESIRABLE ?HIGH ? HIGH ? VERY HIGH ? TOTAL CHOLESTEROL ??----- ?below 200 ?200-239 ?above 239 ?? ----- ?? LDL CHOLESTEROL ??below 100 ??100-129 ?130-159 ? 160-189 ?above 189 ?? HDL CHOLESTEROL ??above 59 ?? above 39 ? ----- ?----- ? ----- ?? TRIGLYCERIDES ?----- ?below 150 ?150-199 ?200-499 ?above 499 ?? Total HDL-C Direct 57 >39 mg/dL [facility] [place] LDL Chol 90 0 - 129 mg/dL [facility] Blood specimen (specimen) 12/23/2018 12:19 PM CDT 12/23/2018 1:10 PM CDT us Sami Stafford MD LAB BLOOD ORDERABLES Final Re sult [facility] documented in this encounter Visit Diagnoses Diagnosis Coronary artery disease involving [place] coronary artery of [place] heart without angina pectoris Essential hypertension Unspecified essential hypertension Leg edema Edema documented in this encounter Care Teams Architectural Design Professor Relationship Specialty Start Date End Date Cristian Ling MD [address] [place] [address] PCP - General 10/16/16 documented as of this encounter
--- OUTSIDE RECORDS SUMMARY | 2024-06-12 04:01 | XMS_ITS | Encounter Summary ---
Author Organization [facility] Address [address] [place] [address] Phone Care Team Providers Care Youth Minister Name Role Phone Cristian Ling MD Primary Care Prov ider Reason for Visit * Cardiology (Routine) - Closed Specialty Diagnoses / Procedures Referred By Contac t Referred To Contact Cardiology Diagnoses 12M FU Procedures RETURN [facility] (All Locations) Sami Stafford MD [address] [facility] [address] [place] [address] Phone: tel: fax: Referral ID Status Reason Start Date Expiration Date Visits Re quested Visits Authorized [id number] Closed 12/14/2018 03/16/2019 3 3 Encounter Details Date Type Department Care Team (Late st Contact Info) Description 12/23/2018 11:00 AM CDT Office Visit [facility] [address] [facility] 8th [place] [address] [place] [address] Sami Stafford MD [address] [facility] [address] [place] [address] Coronary artery disease involving [place] coronary artery of [place] heart without angina pectoris (Primary Dx); Essential hypertension; Leg edema Social History Tobacco Use Types Packs/Day Years Used Date Smoking Tobacco: Never Smokeless Tobacco: Never Comments Unknown Sex and Gender Information Value Date Recorded Sex Assigned at Not on file 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 Gender Identity Female 02/07/2021 4:33 PM CDT Sexual Orientation Straight 02/07/2021 4: 33 PM CDT documented as of this encounter Last Filed Vital Signs Vital Sign Reading Time Taken Comments Blood Pressure 159/81 12/23/2018 11:01 AM CDT Pulse 54 12/23/2018 11:01 AM CDT Temperature 36.8 ??C (98.2 ??F) 12/23/2018 11:01 AM C DT Respiratory Rate - - Oxygen Saturation 100% 12/23/2018 11:01 AM CDT Inhaled Oxygen Concentration - - Weight 76.5 kg (168 lb 9.6 oz) 12/23/2018 11:01 AM CDT Height 162.6 cm (5' 4 ) 12/23/2018 11:01 AM CDT Body Mass Index 28.94 12/23/2018 11:01 AM CDT documented in this encounter Patient Instructions * Patient Instructions* Sami Stafford MD - 12/23/2018 11:00 AM CDT Check your blood pressure and call with the reading. Call if your leg swelling increases or if you develop leg pain. documented in this encounter Progress Notes * Sami Stafford MD - 12/23/2018 11:00 AM CDT Images from the original note were not included. Department of Medicine Sami Stafford MD, MPHS, [facility] Cardiovascular Division Automatic Pinsetter Adjusterpostmaster Patient Name: Tiera Lobato : 1945 Date of Service: 12/23/2018 DIAGNOSES: 1. Coronary artery disease with myocardial infarction in August 2012 followed by bypass surgery by Dr. Irineo Reinoso with LAWSON to LAD and saphenous vein graft to obtuse marginal. 2. Hypertension. 3. Degenerative disc disease. 4. History of diverticulitis. 5. History of vertigo. 6. History of lower extremity DVT with associated phlebitis in the distant past. Dear Cristian Ling MD: I had the pleasure of seeing Tiera Lobato today for follow-up. She is a 73 y.o. woman with ahistory of coronary disease and myocardial infarction, status post bypass surgery in 2012, hypertension, degenerative disk disease, diverticulitis, vertigo, and lower extremity DVT. She enjoys container gardening with rizo--mainly petunias, but also peppers and tomatoes. No concerning symptoms: no chest discomfort or SOB. Does not monitor home BP. Chronic vertigo/imbalance. Has not had recent labs. Did notice some left leg swelling a week ago, has spontaneously improved. Nocalf pain. Prior DVT she thinks was in left leg. Remote h/o hypothyroidism treated with thyroid supplementation, later discontinued. Reports cold intolerance. No change in urine quality or color, no frothiness. Outpatient Encounter Medications as of 12/23/2018 Medication Sig Dispense Refill ??? acetaminophen (TYLENOL) [...] Take 2,000 mcg by mouth daily ??? docusate sodium (COLACE) 100 mg capsule TAKE 1 CAPSULE TWICE DAILY NEEDED. ??? LINZESS 145 mcg capsule Take by mouth daily. 2 ??? metoprolol XL (TOPROL XL) 25 mg 24 hr tablet 12.5 mg daily. ??? multivitamin no.44-vit D3-K 1,000-800 unit-mcg capsule daily. ??? NON-ASPIRIN EXTRA STRENGTH 500 mg tablet Take by mouth every 8 (eight) hours as needed. 0 ??? omeprazole (PriLOSEC) 20 mg capsule daily. ??? [DISCONTINUED] calcitonin (MIACALCIN) 200 unit/actuation nasal spray INJECT 1 SPRAY IN 1 NOSTRIL ONCE DAILY ALTERNATING NOSTRILS 0 ??? [DISCONTINUED] predniSONE (DELTASONE) 10 mg tablet PLEASE SEE ATTACHED FOR DETAILED DIRECTIONS 1 No facility-administered encounter medications on file as of 12/23/2018. Allergies Allergen Reactions ??? Codeine Hives and Shortness of breath ??? Latex Itching ? ? Tramadol Nausea & Vomiting Physical Exam: BP 159/81 (BP Location: Left arm, Patient Position: Sitting) Pulse 54 Temp 36.8 ??C (98.2 ??F) (Oral) Ht 162.6 cm (5' 4 ) Wt 76.5 kg (168 lb 9.6 oz) SpO2 100% BMI 28.94 kg/m?? BP Readings from Last 3 Encounters: 12/23/18 159/81 12/10/17 134/82 06/11/17 123/77 Wt Readings from Last 3 Encounters: 12/23/18 76.5 kg (168 lb 9.6 oz) 12/10/17 76.8 kg (169 lb 6.4 oz) 06/11/17 79.8 kg (176 lb 0.2 oz) LUE bp 194/84 General: older white woman well-developed, well nourished, [...] Lab Results Component Value Date SODIUM 140 05/10/2017 POTASSIUM 4.1 05/10/2017 BUNSER 14 05/10/2017 BUNSER 16 09/04/2015 BUNSER 13 11/06/2012 CREATININE 0.90 05/10/2017 CREATININE 0.80 09/04/2015 CREATININE 0.77 11/06/2012 Lab Results Component Value Date CHOL 179 09/04/2015 CHOL 200 09/04/2012 LDL 87 09/04/2015 LDL 118 09/04/2012 Assessment/Plan: Tiera Lobato is a 73 y.o. female with the followin. CAD with prior OK and CABG. No recent angina. Continue aspirin, metoprolol, atorvastatin, ezetimibe. Check lipids. 2. Hypertension, BP elevated today. Continue metoprolol. Patient advised to check bp as an outpatient and call with the readings. 3. Leg edema. Not very impressive. H/o hypoTH not currently supplemented. Recheck TSH. To call if leg swelling increases or if she develops leg pain. Addendum: LDL 90, will add ezetimibe. TSH was 0.92, normal. Return to clinic in 1 year, sooner if needed. I appreciate the opportunity to participate in Ms. Lobato's care. Please feel free to call with any questions or concerns. Sincerely, Sami Stafford MD, MPHS, [facility] Automatic Pinsetter Adjusterpostmaster Cardiovascular Division [facility] --- Please note: This note was generated in part using voice-recognition software and may contain die cast patternmaker errors. documented in this encounter Plan of Treatment Not on file documented as of this encounter Results * (ABNORMAL) Lipid panel (12/23/2018 12:19 PM CDT) Triglycerides 163(H) 0 - 149 mg/dL [facility] Total Cholesterol 180 0 - 199 mg/dL [facility] Comment: NATIONAL CHOLESTEROL EDUCATION PROGRAM ATP III [...] ?? Total HDL-C Direct 57 >39 mg/dL [facility] [place] LDL Chol 90 0 - 129 mg/dL [facility] Blood specimen (specimen) 12/23/2018 12:19 PM CDT [...] 10.3 mg/dL [facility] eGFR NON-AFR. TURKMEN 67.5 >60.0 mL/min/1.7 3 m2 [facility] eGFR 78.2 >60.0 mL/min/1.7 3 m2 [facility] Blood specimen (specimen) 12/23/2018 12:19 PM CDT 12/23/2018 1:10 PM CDT us Sami Stafford MD LAB BLOOD ORDERABLES Final Re sult [facility] * TSH (12/23/2018 12:19 PM CDT) TSH [...] Visit Diagnoses Diagnosis Coronary artery disease involving [place] coronary artery of [place] heart without angina pectoris- Primary Essential hypertension Unspecified essential hypertension Leg edema Edema documented in this encounter Discontinued Medications Medication Sig Discontinue Reason Start Date End Da te predniSONE (DELTASONE) 10 mg tablet PLEASE SEE ATTACHED FOR DETAILED DIRECTIONS 11/24/2018 12/23/2018 calcitonin (MIACALCIN) 200 unit/actuation nasal sprayIndications:Post-M enopausal Osteoporosis INJECT 1 SPRAY IN 1 NOSTRIL ONCE DAILY ALTERNATING NOSTRILS 11/05/2017 12/23/2018 documented as of this encounter Historical Medications * This list may reflect changes made after this encounter. alendronate (FOSAMAX) 70 mg tablet TAKE 1 TABLET BY MOUTH ONE TIME PER WEEK 0 11/09/2018 predniSONE (DELTASONE) 10 mg tablet PLEASE SEE ATTACHED FOR DETAILED DIRECTIONS 1 11/24/2018 9 added in this encounter Care Teams Youth Minister Relationship Specialty Start Date End Date Cristian Ling MD [address] [place] [address] PCP - General 10/16/16 documented as of this encounter
--- OUTSIDE RECORDS SUMMARY | 2024-06-12 04:01 | XMS_ITS | Encounter Summary ---
Author Organization [facility] Care Team Providers Care Radio Operator Name Role Phone Unavailable Primary Care Provider Unavailabl e Encounter Details Date Type Department Care Team (Latest Contact Info) Description 09/04/2012 7:22 PM CDT - 09/21/2012 4:26 PM CDT Hospital Encounter [facility] Irineo Cee MD [address] [place] [address] Acute subendocardial infarction, initial episode of care (HCC); Acute posthemorrhagic anemia; Pulmonary collapse; Coronary atherosclerosis of unga coronary artery; Other and unspecified hyperlipidemia; Cough; Elevation of level of transaminase and lactic acid dehydrogenase (LDH); Personal history of transient ischemic attack (TIA) and cerebral infarction without residual deficit; Esophageal reflux; Other acute postoperative pain; Other iatrogenic hypotension; Hypopotassemia; Other specified cardiac dysrhythmias Social History Tobacco Use Types Packs/Day Years Used Date Smoking Tobacco: Never Assessed Comments Unknown Sex and Gender Information Value Date Recorded Sex Assigned at Not on file Legal Sex Female 7:12 AM [employer]OSS Gender Identity Female 02/07/2021 4:33 PM CDT Sexual Orientation Straight 02/07/2021 4: 33 PM CDT documented as of this encounter Last Filed Vital Signs Vital Sign Reading Time Taken Comments Blood Pressure 136/76 09/21/2012 3:13 PM CDT Pulse 80 09/21/2012 3:13 PM CDT Temperature - - Respiratory Rate - - Oxygen Saturation 97% 09/21/2012 3:13 PM CDT Inhaled Oxygen Concentration - - Weight 70.8 kg (156 lb 1.4 oz) 09/21/2012 1:00 A M CDT Height 163 cm (5' 4.17 ) 09/04/2012 8:52 PM CDT Body Mass Index 26.65 09/04/2012 8:52 PM CDT documented in this encounter Medications at [...] tablets (12.5 mg total) daily 09/21/2012 06/11/2022 documented as of this encounter H&P Notes * Provider, MD Fidel - 09/04/2012 12:00 AM CDT Patient: James Cueva Reg No: [id number] Formerly [facility] #: [id number] Admit Dt.: 09/04/2012 : 1945 Room No: [facility] Attending: Jeimy Laws M.D. Dictating: Nila Truong M.D. ADMISSION HISTORY PHYSICAL CHIEF COMPLAINT: Chest pain. HISTORY OF PRESENT ILLNESS: The patient is a 67-year-old female with a past medical history of diverticulosis who presents with left-sided chest pain. The patient states that the left-sided chest pain started at approximately 6:00 a.m. while she was at rest, with no known precipitating factors. She describes the pain as sharp, aching, and pressure-like, 7 out of 10 in intensity and worse with cough. Associated symptoms include shortness of breath at rest and also intermittent left arm numbness. She also endorses mild nausea, but no vomiting and no diaphoresis. Leading up to this event, the patient endorses having a viral-like illness for the past few days with rhinorrhea, congestion, low grade fever to 100.8 degrees, and nonproductive cough. The patient took aspirin at home and presented to the emergency department for further workup. In the emergency department she was diagnosed with NSTEMI based on her EKG and her elevated troponin. She was given aspirin 81 mg x two chewed, Plavix 75 times three, sublingual nitroglycerin and a heparin bolus followed by a drip. These interventions alleviated her chest pain. PAST MEDICAL/SURGICAL HISTORY: 1. Diverticulitis. 2. 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 3. Exploratory laparotomy in the for a perforated colon of unclear etiology. The patient's primary care physician is Dr. Pollard whose office was contacted while the patient was in the emergency department. MEDICATIONS: The patient is not currently on any medications. ALLERGIES: The patient is allergic to CODEINE. FAMILY HISTORY: Family medical history negative for coronary artery disease, myocardial infarction or cerebrovascular accident. SOCIAL HISTORY: The patient denies alcohol, tobacco or drug use. REVIEW OF SYSTEMS: All systems negative, except as mentioned in the history of present illness. PHYSICAL EXAMINATION: Vital Signs: Temperature 36.3 degrees, heart rate 70, respirations 16, blood pressure 153/92, saturating 100% on room air. Constitutional: The patient is a well-developed, well-nourished female in no apparent distress, resting comfortably. HEENT: Eyes - extraocular movements intact. Pupils equal, round and reactive to light and accommodation. Oropharynx clear. Moist mucous membranes. Normocephalic, atraumatic. Neck: Shotty lymphadenopathy. Chest: Cardiovascular - regular rate and rhythm. No murmurs, rubs, or gallops. Lungs: Easy work of breathing. Mild rales throughout. The patient does have a dry cough. Abdomen: Positive bowel sounds. Soft, nondistended, nontender to palpation. Skin: No lesions. Extremities: Musculoskeletal - full range of motion in all four extremities. Dorsalis pedis and radial pulses 2+ bilaterally. No cyanosis, clubbing, or edema. Neurologic: Alert and oriented x four. Cranial nerves II through XII grossly intact. Psychiatric: Appropriate. LABORATORY AND X-RAY DATA: CBC - WBC 5.1, hemoglobin 12.8, hematocrit 38.1, platelets 217. PT 10.6, PTT 36.8, INR 1.04. EKG - normal sinus rhythm, S and P wave abnormalities consistent with inferior and/or anterolateral ischemia. Chest x-ray- lungs clear. No pleural effusion or pneumothorax; bilateral upper quadrant surgical clips. Troponin 1.71. ASSESSMENT AND PLAN: MEDICAL DECISION MAKIN-year-old female with no past medical history of coronary artery disease presenting with left-sided chest pain, found to be having an NSTEMI, treated in the ED with aspirin, plavix, and heparin drip. 1) Non-ST elevation myocardial infarction: The patient is presently hemodynamically stable. Continue heparin drip per nomogram. Admit to high risk cardiology floor, place on telemetry, trend troponins. We will consult Cardiology for potential TTE, cath during her hospitalization. Start Beta Mario. Plan to start ARABELLA inhibitor prior to discharge. Obtain lipid panel and HgbA1C for risk stratification. 2) Cough, low grade fever - obtain flu swab. Place on droplet precautions. Tessalon pearls for symptom control. 3) Fluids, electrolytes and nutrition/gastrointestinal - n.p.o. ovenight, NS maint. IVF. 4) History of diverticulitis - no active symptoms. Benign abdominal examination. Continue to monitor. 5) Deep venous thrombosis prophylaxis - therapeutically anticoagulated. Anti-embolism stockings. 6) Code status - full code. Reviewed by Nila Truong M.D. 09/05/2012 03:42 P Nila Truong M.D. Electronically Signed By Jeimy Laws M.D. 11/04/2012 10:55 A Penelope Rod/gustavo #[id number] Editing MT: TD: 09/05/2012 06:02:00 cc: Penelope Santiago M.D. documented in this encounter Consult Notes * Provider, MD Fidel - 09/07/2012 12:00 AM CDT Patient: James Cueva Reg No: [id number] [facility]ly [facility] #: [id number] Admit Dt.: 09/04/2012 : 1945 Room No: [id number] Attending: Medicine Medicine Consulting: Irineo Reinoso M.D. Dictating: Irineo Reinoso M.D. Service Dt: 09/07/2012 CONSULTATION REPORT PHYSICIAN REQUESTING CONSULTATION: Greg Piedra M.D. REASON FOR CONSULTATION: Coronary bypass grafting. BRIEF HISTORY: The patient is a 67-year-old woman who developed acute onset left-sided chest pain. Several days earlier, she presented to an outside hospital where she was given nitroglycerin that prompted relief of these symptoms as well as aspirin and Plavix x3. After the chest pain resolved, she was subsequently evaluated by cardiac catheterization at our institution where she demonstrated significant two-vessel disease with an ostial circumflex lesion. For this reason, she is referred for coronary artery bypass grafting. PAST MEDICAL HISTORY: Past medical history includes: 1. Diverticulitis. 2. Deep vein thrombosis associated with phlebitis primarily in her right lower extremity as well as a laparotomy for colonic perforation. MEDICATIONS: Her medications currently in the hospital include: 1. Heparin infusion. 2. Aspirin. 3. She has received Plavix. 4. Statin. 5. Lisinopril. 6. Beta-mario. ALLERGIES: She does not have any drug allergies. FAMILY HISTORY: Family history is negative for coronary disease or premature valvular heart disease. SOCIAL HISTORY: Negative for alcohol, tobacco or illicit drug use. REVIEW OF SYSTEMS: Review of systems is negative, except as what is noted in the history of present illness. She does lead a fairly active lifestyle and is active within her own home and lives alone. All other systems have been reviewed and are negative. PHYSICAL EXAMINATION: Vital Signs: She is 64 inches tall. Her weight is 71 kilograms. She is afebrile. Heart rate in the 60s. Blood pressure 122/66 mmHg, saturating 100 percent on room air. She is breathing at 17 times a minute. Constitutional: On physical examination, she is well-appearing, in no obvious distress. HEENT: Head, ears, eyes, nose, and throat examination is unremarkable. Extraocular motions are intact. Pupils equal, round, and reactive to light. Neck: There is no particular jugular venous distention. Chest: Her chest shows no murmurs. She has regular rate and rhythm. Lungs: Lungs are clear bilaterally. Abdomen: Abdomen is soft, nontender, nondistended. Extremities: Her upper extremities have equal olive knocker strength. Her Narayan test is within normal limits on the left side. She has no clubbing, cyanosis or edema. Skin: Her skin shows no significant petechiae or lesions. She has significant spider veins on the right upper thigh. LABORATORY AND X-RAY DATA: Available for review include a cardiac catheterization which shows ostial circumflex and [id number] proximal left anterior descending disease. She has an echocardiogram which shows normal ventricular function with absence of valvular heart disease. She has a creatinine which is within the normal limits. IMPRESSION: This is a woman with severe multivessel coronary disease. She will benefit from bypass grafting. Yes, the FFR is a bit negative on the left anterior descending, but given the options of left main stenting because of the ostial lesion, the moderate lesion will probably be reasonably suited to an internal mammary artery bypass graft. RECOMMENDATIONS: At this time, what I would like to recommend is that we discontinue Plavix, switch over to Bivalirudin in order to avoid the development of HIT as well as antithrombin-3 depletion. Check carotids as well as a non contrast computed tomography scan of the chest. We should get vein mapping of the bilateral lower extremities because of the history of phlebitis in the past. Thank you for the opportunity to see this patient. Electronically Signed By Irineo Reinoso M.D. 09/25/2012 05:24 P Penelope Deutsch/opal #[id number] Editing MT: TD: 09/08/2012 20:35:00 cc: Penelope Deleon M.D. Medicine Medicine documented in this encounter Miscellaneous Notes * Op Note - Provider, MD Fidel - 09/15/2012 12:00 AM CDT Patient: James Cueva Reg No: [id number] [facility]ly [facility] #: [id number] Admit Dt.: 09/04/2012 : 1945 Pt Type: 100 Room No: OTHER Attending: Irineo Reinoso M.D. Surgeon: Irineo Reinoso M.D. Dictating: Irineo Reinoso M.D. Service Dt: 09/15/2012 OPERATIVE REPORT FIRST WEDDING DAY COORDINATOR: Dr. Wendy Pruitt M.D. PREOPERATIVE DIAGNOSIS (ES): Coronary artery disease and unstable angina. POSTOPERATIVE DIAGNOSIS (ES): Coronary artery disease and unstable angina. NAME OF OPERATION: Coronary artery bypass graft x2 with LAWSON to the left anterior descending coronary artery and saphenous vein graft to the obtuse marginal. INDICATIONS FOR PROCEDURE: This is a woman who presented for the first time with significant onset of acute chest pain. Her workup at that time revealed preserved ventricular function with significant ostial left circumflex disease and with moderate disease in the left anterior descending distribution. She was then referred for coronary artery bypass grafting. DESCRIPTION OF PROCEDURE: The patient was brought to the operating room table and placed in the supine position. After appropriate intravenous and intraarterial lines had been established the patient was anesthetized and intubated. She was prepped and draped in the standard surgical fashion. A median sternotomy was then performed. The LAWSON harvested as a pedicle conduit and was an excellent caliber conduit. Simultaneously endovascular harvesting was performed on the right lower extremity which revealed small but certainly suitable vein graft suitable for bypass grafting. The patient was fully heparinized. Heart was suspended on pericardial cradle. Preparation was made for cardiopulmonary bypass which included cannulation of the ascending aorta as well as the right atrium. Catheters were placed in the coronary sinus and ascending aorta for the administration of cardioplegia. The patient was again on cardiopulmonary bypass. The obtuse marginal target was identified. It was an adequate target approximately 1.75 mm in size grafted end-to-side to a piece of saphenous vein graft. Pump flows on this were 60 mL/min. We then performed an end-to-side proximal anastomosis with a single aortotomy on the ascending and this was marked with a vein marker and constructed with a 5.0 Prolene. Next we turned our attention to grafting of the left anterior descending coronary artery. The LAD was also a good size vessel 2.25 mm in size grafted end-to-side to the internal mammary artery. We gave a warm dose of retrograde cardioplegia. We released the aortic cross-clamp and weaned from cardiopulmonary bypass without much difficulty. Protamine was administered. We had good hemostasis. We then placed epicardial pacing wires, decannulated the patient, and closed the pericardium over the ascending aorta as well as the inferior surface of the right ventricle. We placed drainage tubes within the left chest and the mediastinum. The sternum was reapproximated with heavy gauge wires. The skin and subcutaneous tissue were closed in the standard fashion. Total clamp time was 59 minutes. Total bypass time was 1 hour and 26 minutes. Preoperatively the patient had been on systemic anticoagulation and had been on a beta-mario. She did receive perioperative antibiotics that will be discontinued in 48 hours. ATTESTATION OF PRESENCE: I was present from the time of skin incision to the time of skin closure and immediately available thereafter. I participated in all martinez portions of the case including the entire time on cardiopulmonary bypass. Electronically Signed By Irineo Reinoso M.D. 09/25/2012 05:24 P Irineo Reinoso M.D. [facility] [place] #[id number] Editing MT: AMINA TD: 09/16/2012 07:03:00 cc: Irineo Reinoso M.D. documented in this encounter Plan of Treatment Not on file documented as of this encounter Procedures Procedure Name Priority Date/Time Associated Diagnosis Comments CHEST RADIOGRAPHY, FRONTAL (AP), LATERAL Routine 09/21/2012 11:43 AM CDT PLASMA BASIC METABOLIC PANEL Routine 09/21/2012 1:55 AM CDT BLOOD CELL COUNT (CBC) Routine 3 1:55 AM CDT DISCHARGE LABORATORY CUMULATIVE REPORT Routine 09/21/2012 12:00 AM CDT TRANSTHORACIC ECHO (TTE) COMPLETE W DOPPLER/CF WO CONTRAST Routine 09/21/2012 12:00 AM CDT PLASMA BASIC METABOLIC PANEL Routine 09/20/2012 12:40 AM CDT BLOOD CELL COUNT (CBC) Routine 3 12:40 AM CDT CHEST RADIOGRAPHY, FRONTAL (AP), LATERAL Routine 09/19/2012 10:12 AM CDT PLASMA BASIC METABOLIC PANEL Routine 09/19/2012 12:30 AM CDT BLOOD CONSISTENT RESULT Routine 09/20/19 13 12:30 AM CDT BLOOD CELL COUNT (CBC) Routine 3 12:30 AM CDT CHEST RADIOGRAPHY, FRONTAL (AP), LATERAL Routine 09/18/2012 10:09 AM CDT PLASMA BASIC METABOLIC PANEL Routine 09/18/2012 1:00 AM CDT BLOOD CELL COUNT (CBC) Routine 3 1:00 AM CDT XR CHEST 1 VIEW Routine 09/17/2012 3:23 PM CDT PLASMA BASIC METABOLIC PANEL Routine 09/17/2012 2:40 PM CDT BLOOD CELL COUNT (CBC) Routine 3 2:40 PM CDT BLOOD GLUCOSE, POC Routine 09/17/2012 8: 39 AM CDT BLOOD GLUCOSE, POC Routine 09/17/2012 3: 14 AM CDT BLOOD GLUCOSE, POC Routine 09/17/2012 12 :22 AM CDT PLASMA BASIC METABOLIC PANEL Routine 09/17/2012 12:01 AM CDT BLOOD CONSISTENT RESULT Routine 09/18/19 13 12:01 AM CDT BLOOD CELL COUNT (CBC) Routine 3 12:01 AM CDT BLOOD GLUCOSE, POC Routine 09/16/2012 8: 09 PM CDT BLOOD GLUCOSE, POC Routine 09/16/2012 5: 03 PM CDT MRSA SURVEILLANCE CULTURE, CDR Routine 09/16/2012 12:34 PM CDT BLOOD GLUCOSE, POC Routine 09/16/2012 11 :31 AM CDT BLOOD POTASSIUM, MIXED VENOUS Routine 09/16/2012 11:19 AM CDT BLOOD GLUCOSE, POC Routine 09/16/2012 8: 27 AM CDT BLOOD GLUCOSE, POC Routine 09/16/2012 7: 13 AM CDT BLOOD GLUCOSE, POC Routine 09/16/2012 5: 53 AM CDT BLOOD ABO, RH, INDIRECT AB SCREEN Routine 09/16/2012 5:19 AM CDT BLOOD POTASSIUM, MIXED VENOUS Routine 09/16/2012 5:15 AM CDT BLOOD CELL COUNT (CBC) Routine 3 5:15 AM CDT BLOOD GLUCOSE, POC Routine 09/16/2012 3: 56 AM CDT BLOOD GLUCOSE, POC Routine 09/16/2012 2: 08 AM CDT ALL MICROBIOLOGY REPORT SECTION Routine 09/16/2012 12:00 AM CDT BLOOD GLUCOSE, POC Routine 09/15/2012 11 :45 PM CDT BLOOD POTASSIUM, MIXED VENOUS Routine 09/15/2012 11:14 PM CDT BLOOD GAS, ARTERIAL Routine 09/15/2012 1 1:14 PM CDT BLOOD HEMOGLOBIN SATURATION Routine 09/15/2012 11:00 PM CDT SERUM MAGNESIUM Routine 09/15/2012 9:45 PM CDT PLASMA PHOSPHORUS Routine 09/15/2012 9:4 5 PM CDT PLASMA BASIC METABOLIC PANEL Routine 09/15/2012 9:45 PM CDT BLOOD POTASSIUM, MIXED VENOUS Routine 09/15/2012 9:45 PM CDT BLOOD GLUCOSE, POC Routine 09/15/2012 9: 27 PM CDT MRSA SURVEILLANCE CULTURE, CDR Routine 09/15/2012 9:19 PM CDT PLASMA PROTHROMBIN TIME (PT) Routine 09/15/2012 9:10 PM CDT PLASMA PARTIAL THROMBOPLASTIN TIME (PTT) Routine 09/15/2012 9:10 PM CDT BLOOD CELL COUNT Routine 09/15/2012 9:10 PM CDT XR CHEST 1 VIEW Routine 09/15/2012 9:10 PM CDT BLOOD GAS, POINT OF CARE, ARTERIAL Routine 09/15/2012 7:53 PM CDT BLOOD PROTHROMBIN TIME (PT) Routine 09/15/2012 7:51 PM CDT BLOOD PLATELET, HEMATOCRIT POINT OF CARE Routine 09/15/2012 7:51 PM CDT BLOOD PARTIAL THROMBOPLASTIN TIME (PTT) Routine 09/15/2012 7:51 PM CDT BLOOD HEPARIN/ACTIVATED CLOTTING TIME (ACT) Routine 09/15/2012 7:50 PM CDT BLOOD GAS, POINT OF CARE, ARTERIAL Routine 09/15/2012 6:52 PM CDT BLOOD GAS, POINT OF CARE, ARTERIAL Routine 09/15/2012 6:24 PM CDT BLOOD HEPARIN/ACTIVATED CLOTTING TIME (ACT) Routine 09/15/2012 6:22 PM CDT BLOOD HEPARIN/ACTIVATED CLOTTING TIME (ACT) Routine 09/15/2012 5:22 PM CDT BLOOD GAS, POINT OF CARE, ARTERIAL Routine 09/15/2012 3:50 PM CDT BLOOD HEPARIN DOSE RESPONSE Routine 09/15/2012 3:45 PM CDT SERUM MAGNESIUM Routine 09/15/2012 5:12 AM CDT PLASMA BASIC METABOLIC PANEL Routine 09/15/2012 5:12 AM CDT BLOOD CELL COUNT (CBC) Routine 3 5:12 AM CDT ALL MICROBIOLOGY REPORT SECTION Routine 09/15/2012 12:00 AM CDT PLASMA PROTHROMBIN TIME (PT) Routine 09/14/2012 10:10 PM CDT PLASMA PARTIAL THROMBOPLASTIN TIME (PTT) Routine 09/14/2012 10:10 PM CDT BLOOD CHECK SAMPLE Routine 09/14/2012 10 :10 PM CDT PLASMA PARTIAL THROMBOPLASTIN TIME (PTT) Routine 09/14/2012 2:36 PM CDT BLOOD CELL COUNT Routine 09/14/2012 2:36 PM CDT BLOOD ABO, RH, INDIRECT AB SCREEN Routine 09/14/2012 2:36 PM CDT URINALYSIS Routine 09/14/2012 9:41 AM CDT SERUM MAGNESIUM Routine 09/14/2012 1:41 AM CDT PLASMA PHOSPHORUS Routine 09/14/2012 1:4 1 AM CDT PLASMA PARTIAL THROMBOPLASTIN TIME (PTT) Routine 09/14/2012 1:41 AM CDT PLASMA COMPREHENSIVE METABOLIC PANEL Routine 09/14/2012 1:41 AM CDT BLOOD CELL COUNT (CBC) Routine 3 1:41 AM CDT PLASMA PARTIAL THROMBOPLASTIN TIME (PTT) Routine 09/13/2012 2:25 PM CDT CHEST RADIOGRAPHY, FRONTAL (AP), LATERAL Routine 09/13/2012 12:55 PM CDT BLOOD CELL COUNT Routine 09/13/2012 2:09 AM CDT PLASMA PARTIAL THROMBOPLASTIN TIME (PTT) Routine 09/13/2012 2:05 AM CDT PLASMA PARTIAL THROMBOPLASTIN TIME (PTT) Routine 09/11/2012 9:43 AM CDT ELECTROCARDIOGRAPHY (ECG) 09/11/2012 PLASMA PROTHROMBIN TIME (PT) Routine 09/10/2012 10:02 PM CDT PLASMA PARTIAL THROMBOPLASTIN TIME (PTT) Routine 09/10/2012 10:02 PM CDT PLASMA COMPREHENSIVE METABOLIC PANEL Routine 09/10/2012 10:02 PM CDT BLOOD CELL COUNT (CBC) Routine 3 10:02 PM CDT SERUM MAGNESIUM Routine 09/10/2012 6:10 AM CDT PLASMA PROTHROMBIN TIME (PT) Routine 09/10/2012 6:10 AM CDT PLASMA PHOSPHORUS Routine 09/10/2012 6:1 0 AM CDT PLASMA PARTIAL THROMBOPLASTIN TIME (PTT) Routine 09/10/2012 6:10 AM CDT PLASMA COMPREHENSIVE METABOLIC PANEL Routine 09/10/2012 6:10 AM CDT BLOOD CELL COUNT Routine 09/10/2012 6:10 AM CDT PLASMA PARTIAL THROMBOPLASTIN TIME (PTT) Routine 09/09/2012 5:30 PM CDT PLASMA PARTIAL THROMBOPLASTIN TIME (PTT) Routine 09/09/2012 4:55 AM CDT SERUM MAGNESIUM Routine 09/08/2012 10:45 PM CDT PLASMA PROTHROMBIN TIME (PT) Routine 09/08/2012 10:45 PM CDT PLASMA PHOSPHORUS Routine 09/08/2012 10: 45 PM CDT PLASMA PARTIAL THROMBOPLASTIN TIME (PTT) Routine 09/08/2012 10:45 PM CDT PLASMA COMPREHENSIVE METABOLIC PANEL Routine 09/08/2012 10:45 PM CDT BLOOD CELL COUNT (CBC) Routine 3 10:45 PM CDT PLASMA PARTIAL THROMBOPLASTIN TIME (PTT) Routine 09/08/2012 4:[address] CHEST WO CONTRAST Routine 09/08/2012 11:18 AM CDT PLASMA PARTIAL THROMBOPLASTIN TIME (PTT) Routine 09/08/2012 8:50 AM CDT VASCULAR LABORATORY REPORT 09/08/2012 VASCULAR LABORATORY REPORT 09/08/2012 SERUM MAGNESIUM Routine 09/07/2012 9:51 PM CDT PLASMA PHOSPHORUS Routine 09/07/2012 9:5 1 PM CDT PLASMA PARTIAL THROMBOPLASTIN TIME (PTT) Routine 09/07/2012 9:51 PM CDT PLASMA COMPREHENSIVE METABOLIC PANEL Routine 09/07/2012 9:51 PM CDT BLOOD CELL COUNT Routine 09/07/2012 9:51 PM CDT BLOOD ACTIVATED CLOTTING TIME, LOW Routine 09/07/2012 9:12 AM CDT BLOOD ACTIVATED CLOTTING TIME, LOW Routine 09/07/2012 9:01 AM CDT BLOOD ACTIVATED CLOTTING TIME, LOW Routine 09/07/2012 8:34 AM CDT CARDIAC CATHETERIZATION Routine 09/08/19 13 12:00 AM CDT BLOOD CELL COUNT Routine 09/06/2012 10:2 6 PM CDT SERUM MAGNESIUM Routine 09/06/2012 10:20 PM CDT PLASMA PROTHROMBIN TIME (PT) Routine 09/06/2012 10:20 PM CDT PLASMA PHOSPHORUS Routine 09/06/2012 10: 20 PM CDT PLASMA PARTIAL THROMBOPLASTIN TIME (PTT) Routine 09/06/2012 10:20 PM CDT PLASMA COMPREHENSIVE METABOLIC PANEL Routine 09/06/2012 10:20 PM CDT PLASMA PARTIAL THROMBOPLASTIN TIME (PTT) Routine 09/06/2012 3:45 PM CDT PLASMA PARTIAL THROMBOPLASTIN TIME (PTT) Routine 09/06/2012 7:00 AM CDT ELECTROCARDIOGRAPHY (ECG) 09/06/2012 SERUM MAGNESIUM Routine 09/05/2012 11:00 PM CDT PLASMA PROTHROMBIN TIME (PT) Routine 09/05/2012 11:00 PM CDT PLASMA PARTIAL THROMBOPLASTIN TIME (PTT) Routine 09/05/2012 11:00 PM CDT PLASMA COMPREHENSIVE METABOLIC PANEL Routine 09/05/2012 11:00 PM CDT BLOOD CELL COUNT (CBC) Routine 3 11:00 PM CDT SERUM TROPONIN I Routine 09/05/2012 1:20 PM CDT PLASMA PARTIAL THROMBOPLASTIN TIME (PTT) Routine 09/05/2012 1:20 PM CDT INFLUENZA VIRUS PCR, CDR Routine 013 4:40 AM CDT SERUM TROPONIN I Routine 09/05/2012 4:22 AM CDT PLASMA PARTIAL THROMBOPLASTIN TIME (PTT) Routine 09/05/2012 4:00 AM CDT ALL MICROBIOLOGY REPORT SECTION Routine 09/05/2012 12:00 AM CDT TRANSTHORACIC ECHO (TTE) COMPLETE W DOPPLER/CF WO CONTRAST Routine 09/05/2012 12:00 AM CDT SERUM TROPONIN I Routine 09/04/2012 9:30 PM CDT SERUM MAGNESIUM Routine 09/04/2012 9:30 PM CDT PLASMA PROTHROMBIN TIME (PT) Routine 09/04/2012 9:30 PM CDT PLASMA PARTIAL THROMBOPLASTIN TIME (PTT) Routine 09/04/2012 9:30 PM CDT PLASMA COMPREHENSIVE METABOLIC PANEL Routine 09/04/2012 9:30 PM CDT BLOOD HEMOGLOBIN A1C Routine 09/04/2012 9:30 PM CDT BLOOD CELL COUNT (CBC) Routine 3 9:30 PM CDT CHEST RADIOGRAPHY, FRONTAL (AP), LATERAL Routine 09/04/2012 1:27 PM CDT SERUM TROPONIN I Routine 09/04/2012 12:5 0 PM CDT SERUM LIPID PANEL Routine 09/04/2012 12: 50 PM CDT PLASMA PROTHROMBIN TIME (PT) Routine 09/04/2012 12:50 PM CDT PLASMA PARTIAL THROMBOPLASTIN TIME (PTT) Routine 09/04/2012 12:50 PM CDT PLASMA BASIC METABOLIC PANEL Routine 09/04/2012 12:50 PM CDT BLOOD CELL COUNT (CBC) Routine 3 12:50 PM CDT ELECTROCARDIOGRAPHY (ECG) 09/04/2012 ELECTROCARDIOGRAPHY (ECG) 09/04/2012 ELECTROCARDIOGRAPHY (ECG) 09/04/2012 ELECTROCARDIOGRAPHY (ECG) 09/04/2012 documented in this encounter Results * CHEST RADIOGRAPHY, FRONTAL (AP), LATERAL (09/21/2012 11:43 AM CDT) Anatomical Region Laterality Modality N/A Radiographic Salima ging 09/21/2012 11:4 3 AM CDT Narrative 09/21/2012 12:50 PM CDT DIONY MAHONEY M.D. FINAL REPORT ACC# ??Date Time ??Exam [id number] Sep 21, 2012 11:43:00 [id number] Chest 2 views Front&Lat EXAMINATION: ?? Chest 2 views on 09/21/2012 at 11:39 IMPRESSION: ?? Median sternotomy wires, mediastinal clips, and coronary bypass graft marker are again seen. Compared to 09/19/2012, a small left pleural effusion and left base atelectasis have not significantly changed. A small right pleural effusion has decreased in size. No new infiltrate or pneumothorax. Heart size remains normal. There has been interval removal of percutaneous epicardial pacing wires. A right internal jugular catheter is still present with tip at the superior cavoatrial junction. Upper abdominal surgical clips are again noted. Requested By: SHANIKA MOROCHO ANP Dictated By: ?? DIONY MAHONEY M.D. ??on Sep 12:50P This document has been electronically signed by: DIONY MAHONEY M.D. on Sep 12:50P Procedure Note Provider, MD Fidel - 10/12/2016 DIONY MAHONEY M.D. FINAL REPORT ACC# Date Time Exam [id number] Sep 21, 2012 11:43:00 [id number] Chest 2 views Front&Lat EXAMINATION: Chest 2 views on 09/21/2012 at 11:39 IMPRESSION: Median sternotomy wires, mediastinal clips, and coronary bypass graft marker are again seen. Compared to 09/19/2012, a small left pleural effusion and left base atelectasis have not significantly changed. A small right pleural effusion has decreased in size. No new infiltrate or pneumothorax. Heart size remains normal. There has been interval removal of percutaneous epicardial pacing wires. A right internal jugular catheter is still present with tip at the superior cavoatrial junction. Upper abdominal surgical clips are again noted. Requested By: SHANIKA MOROCHO ANP Dictated By: DIONY MAHONEY M.D. on Sep 21 2012 12:50P This document has been electronically signed by: DIONY MAHONEY M.D. on Sep 21 2012 12:50P Historical Provider MD [facility] XR PROCEDURES Final R esult * Plasma basic metabolic panel (09/21/2012 1:55 AM CDT) Sodium 141 135 - 145 mmol/L HISTORICAL RESULTS K, pl 4.1 3.3 - 4.9 mmol/L HISTORICAL RESULTS Chloride 107 97 - 110 mmol/L HISTORICAL RESULTS CO2 27 22 - 32 mmol/L HISTORICAL RESULTS A. gap 7 0 - 16 mmol/L HISTORICAL RESULTS Glucose 92 65 - 199 mg/dl HISTORICAL RESULTS BUN 13 8 - 25 mg/dl HISTORICAL RESULTS Creatinine 0.76 0.60 - 1.10 mg/dl HISTORICAL RESULTS Calcium 10.1 8.6 - 10.3 mg/dl HISTORICAL RESULTS Plasma 09/21/2012 1:55 AM CDT [facility] LAB BLOOD ORDERABLES Final Resul t HISTORICAL RESULTS * (ABNORMAL) Blood cell count (CBC) (09/21/2012 1:55 AM CDT) WBC 5.6 3.8 - 9.8 K/cumm HISTORICAL RESULTS RBC 3.71(L) 3.90 - 5.00 M/cumm HISTORICAL RESULTS Hgb 10.6(L) 12.1 - 15.1 g/dl HISTORICAL RESULTS Hct 32.7(L) 36.1 - 44.3 % HISTORICAL RESULTS MCV 88.1 80.0 - 97.6 fl HISTORICAL RESULTS MCH 28.8 26.7 - 33.7 pg HISTORICAL RESULTS MCHC 32.6(L) 32.7 - 35.5 g/dl HISTORICAL RESULTS Rdw 15.1(H) 11.8 - 14.6 % HISTORICAL RESULTS Platelets 226 140 - 440 K/cumm HISTORICAL RESULTS MPV 9.6 6.8 - 10.4 fl HISTORICAL RESULTS Neutrophils 54.4 38.7 - 74.5 % HISTORICAL RESULTS Lymphocytes 29.6 20.0 - 54.3 % HISTORICAL RESULTS Monos 12.1 4.3 - 13.5 % HISTORICAL RESULTS Eosinophils 3.1 0.0 - 6.0 % HISTORICAL RESULTS Basophils 0.8 0.0 - 3.0 % HISTORICAL RESULTS Neutrophils, abs 3.0 1.8 - 6.6 K/cumm HISTORICAL RESULTS Lymphocytes, abs 1.6 1.2 - 3.3 K/cumm HISTORICAL RESULTS Monocytes, absolute 0.7 0.2 - 1.2 K/cumm HISTORICAL RESULTS Eosinophils, abs 0.2 0.0 - 0.5 K/cumm HISTORICAL RESULTS Basophils, abs 0.0 0.0 - 0.2 K/cumm HISTORICAL RESULTS Blood specimen (specimen) 09/21/2012 1:55 AM CDT us [facility] LAB BLOOD ORDERABLES Final Resul t HISTORICAL RESULTS * Discharge Laboratory Cumulative Report (09/21/2012 12:00 AM CDT) 09/21/2012 Narrative HISTORICAL RESULTS - 09/21/2012 7:17 PM CDT ?[facility] ?Department of Laboratories ? [address] [facility] [place] ? [place] [address] Patient Name: ??JAMES CUEVA [facility] Rec Number: [id number] Fin Number: ?[id number] Date: ?1945 Sex/Age: ? Female 67 years Admit Date: ?09/04/2012 Discharge Date: 09/21/2012 Doctor: ?[facility] , [address] Facility: ?[facility] Location: ?[id number] Chart Printed: 09/21/2012 19:17 ?? * Abnormal ?? C Critical ?? f Footnote ?? ^ Corrected ?? L Low ?? H High ? i Interp Data ?? @ Reference Lab ?Chart Type:Cumulative ?BLOOD GASES ? Arterial Blood Gases ?Test: pH ? pCO2 ? pO2 ? Total CO2 ? Reference: [7.35-7.45] ??[35-45] ??[80-105] ??[21-30] ? Units: ?mmHg ? mmHg ?mmol/L 09/15/2012 ?? 23:14:00 ?? 7.37 ? 39 ? 155 ??H ?23 ?Test: A-a Gradient ?% iO2 Art ? Vol iO2 Art ? Reference: ? Units: mmHg ?% ? L 09/15/2012 ?? 23:14:00 ?? Not Applicable ??Not Applicable ??Not Applicable ?Venous Blood Gases ?Test: Hgb Tot Pul Art ??Oxyhgb Pul Art ? Reference: [12.1-15.1] ? Units: g/dL ? % 09/15/2012 ?? 23:00:00 ?? 9.2 ??L ? 77.2 ?Test: CarboxyHgb Pul Art ??MetHgb Pul Art ? Reference: ? Units: % ? % 09/15/2012 ?? 23:00:00 ?? 1.9 ? 1.9 ?Test: O2 Cont Pul Art ? Reference: ? Units: Vol % O2 09/15/2012 ?? 23:00:00 ?? 10.0 ? SELECTED ELECTROLYTES ?Test: Sodium ? Plasma Potassium ??Chloride ? Reference: [135-145] ??[3.3-4.9] ? [97-110] ? Units: mmol/L ? mmol/L ?mmol/L 09/21/2012 ?? 01:55:00 ?? 141 ?4.1 ? 107 09/20/2012 ?? 00:40:00 ?? 140 ?4.0 ? 107 09/19/2012 ?? 00:30:00 ?? 142 ?3.9 ? 106 09/18/2012 ?? 01:00:00 ?? 139 ?4.1 ? 105 09/17/2012 ?? 14:40:00 ?? 134 ??L ? 4.2 ? 100 09/17/2012 ?? 00:01:00 ?? 138 ?4.6 ? 103 09/15/2012 ?? 21:45:00 ?? 142 ?3.6 ? 111 ??H 09/15/2012 ?? 05:12:00 ?? 140 ?4.2 ? 108 09/14/2012 ?? 01:41:00 ?? 140 ?3.8 ? 107 09/10/2012 ?? 22:02:00 ?? 143 ?3.7 ? 109 09/10/2012 ?? 06:10:00 ?? 141 ?4.1 ? 107 09/08/2012 ?? 22:45:00 ?? 140 ?3.9 ? 109 09/07/2012 ?? 21:51:00 ?? 142 ?3.8 ? 109 09/06/2012 ?? 22:26:00 ?? 141 ?4.0 ? 108 09/05/2012 ?? 23:00:00 ?? 143 ?4.6 ? 113 ??H 09/04/2012 ?? 21:30:00 ?? 145 ?2.9 ??L ?111 ??H 09/04/2012 ?? 12:50:00 ?? 146 ??H ? 3.3 ? 111 ??H ?Test: Total CO2 ??Anion Gap ? Reference: [22-32] ?[0-16] ? Units: mmol/L ? mmol/L 09/21/2012 ?? 01:55:00 ?? 27 ? 7 09/20/2012 ?? 00:40:00 ?? 25 ? 8 09/19/2012 ?? 00:30:00 ?? 29 ? 7 09/18/2012 ?? 01:00:00 ?? 28 ? 6 09/17/2012 ?? 14:40:00 ?? 28 ? 6 09/17/2012 ?? 00:01:00 ?? 27 ? 8 09/15/2012 ?? 21:45:00 ?? 20 ??L ?11 09/15/2012 ?? 05:12:00 ?? 24 ? 8 09/14/2012 ?? 01:41:00 ?? 23 ? 10 09/10/2012 ?? 22:02:00 ?? 25 ? 9 09/10/2012 ?? 06:10:00 ?? 26 ? 8 09/08/2012 ?? 22:45:00 ?? 24 ? 7 09/07/2012 ?? 21:51:00 ?? 23 ? 10 09/06/2012 ?? 22:26:00 ?? 24 ? 9 09/05/2012 ?? 23:00:00 ?? 23 ? 7 09/04/2012 ?? 21:30:00 ?? 24 ? 10 09/04/2012 ?? 12:50:00 ?? 24 ? 11 ? Whole Blood Electrolytes ?Test: Whole Blood Potassium ? Reference: [3.3-4.9] ? Units: mmol/L 09/16/2012 ?? 11:19:00 ?? 4.7 09/16/2012 ?? 05:15:00 ?? 4.6 09/15/2012 ?? 23:14:00 ?? 3.5 09/15/2012 ?? 21:45:00 ?? 3.4 ? STANDARD BLOOD CHEMISTRY ?Test: BUN ? Creatinine ?? Total Bilirubin ??Glucose ? Reference: [8-25] ??[0.60-1.10] ??[0.3-1.1] ?[65- 199] ? Units: mg/dL ?? mg/dL ?mg/dL ?mg/dL 09/21/2012 ?? 01:55:00 ?? 13 ?0.76 ?92 09/20/2012 ?? 00:40:00 ?? 15 ?0.75 ?93 09/19/2012 ?? 00:30:00 ?? 12 ?0.70 ?97 09/18/2012 ?? 01:00:00 ?? 14 ?0.70 ?105 09/17/2012 ?? 14:40:00 ?? 18 ?0.81 ?128 09/17/2012 ?? 00:01:00 ?? 15 ?0.76 ?117 09/15/2012 ?? 21:45:00 ?? 13 ?0.63 ?193 09/15/2012 ?? 05:12:00 ?? 11 ?0.72 ?97 09/14/2012 ?? 01:41:00 ?? 14 ?0.75 ? 0.7 ?100 09/10/2012 ?? 22:02:00 ?? 18 ?0.83 ? 0.3 ?114 09/10/2012 ?? 06:10:00 ?? 15 ?0.78 ? 0.6 ?97 09/08/2012 ?? 22:45:00 ?? 13 ?0.73 ? 0.6 ?111 09/07/2012 ?? 21:51:00 ?? 11 ?0.71 ? 0.6 ?107 09/06/2012 ?? 22:26:00 ?? 16 ?0.72 ? 0.5 ?119 09/05/2012 ?? 23:00:00 ?? 16 ?0.72 ? 0.4 ?103 09/04/2012 ?? 21:30:00 ?? 13 ?0.64 ? 0.6 ?123 09/04/2012 ?? 12:50:00 ?? 13 ?0.76 ?95 ?Test: Magnesium ??Total Calcium ??Plasma Phosphorus ? Reference: [1.4-2.5] ??[8.6-10.3] ? [2.3-4.3] ? Units: mg/dL ?mg/dL ?mg/dL 09/21/2012 ?? 01:55:00 ?10.1 09/20/2012 ?? 00:40:00 ?9.8 09/19/2012 ?? 00:30:00 ?9.6 09/18/2012 ?? 01:00:00 ?9.3 09/17/2012 ?? 14:40:00 ?9.2 09/17/2012 ?? 00:01:00 ?9.5 09/15/2012 ?? 21:45:00 ?? 3.1 ??H ?2.5 09/15/2012 ?? 21:45:00 ?8.5 ??L 09/15/2012 ?? 05:12:00 ?? 2.1 ?9.4 09/14/2012 ?? 01:41:00 ?? 1.8 ?9.8 ?3.2 09/10/2012 ?? 22:02:00 ?9.7 09/10/2012 ?? 06:10:00 ?? 2.0 ?9.6 ?3.9 09/08/2012 ?? 22:45:00 ?? 2.0 ?9.1 ?3.1 09/07/2012 ?? 21:51:00 ?? 1.8 ?9.2 ?3.1 09/06/2012 ?? 22:26:00 ?? 1.7 ?9.2 ?2.3 09/05/2012 ?? 23:00:00 ?? 2.0 ?9.1 09/04/2012 ?? 21:30:00 ?? 1.5 ?9.0 09/04/2012 ?? 12:50:00 ?9.2 ?Test: Plasma Total Protein ??Albumin ? Reference: [6.5-8.5] ? [3.6-5.0] ? Units: g/dL ?g/dL 09/14/2012 ?? 01:41:00 ?? 6.8 ? 3.5 ??L 09/10/2012 ?? 22:02:00 ?? 6.5 ? 3.4 ??L 09/10/2012 ?? 06:10:00 ?? 6.7 ? 3.6 09/08/2012 ?? 22:45:00 ?? 6.4 ??L ?3.4 ??L 09/07/2012 ?? 21:51:00 ?? 6.7 ? 3.9 09/06/2012 ?? 22:26:00 ?? 6.7 ? 3.6 09/05/2012 ?? 23:00:00 ?? 6.4 ??L ?3.5 ??L 09/04/2012 ?? 21:30:00 ?? 7.0 ? 3.9 ?GLYCATED HEMOGLOBIN TESTING ?Test: Hemoglobin A1C ??Est Average Glucose ? Reference: [4.0-6.0] ? Units: % ? mg/dL 09/04/2012 ?? 21:30:00 ?? 5.5 ? 111 ??f 09/04/2012 21:30:00 ??Est Average Glucose: The ADA recommends reporting an estimated Average Glucose (eAG) with all Hemoglobin A1c results using the equation derived from a study of 507 normal and diabetic adults. ??Minority populations were underrepresented and children were not included. ??(Diabetes Care 31:7752-7686, 2008). ??The eAG is not equivalent to a fasting glucose. ?LIPIDS ?Test: Total Cholesterol i ??HDL Cholesterol i ? Reference: [0-200] ?[40-199] ? Units: mg/dL ?mg/dL 09/04/2012 ?? 12:50:00 ?? 200 ?46 09/04/2012 12:50:00 Total Cholesterol: Interpretive Data Desirable: ?<200 mg/dL Borderline high: ??200-239 mg/dL High: ? >240 mg/dL Literature Reference: National Cholesterol Education Program (NCEP) Expert Panel on Detection, Evaluation, and Treatment of High Blood Cholesterol in Adults (Adult Treatment Panel III). ??Circulation 2004; 110:227. Current interpretive data was last revised on 2005. 09/04/2012 12:50:00 HDL Cholesterol: Interpretive Data Less than 40 mg/dL - low; A major risk factor for heart disease. Greater than or equal to 60 mg/dL - High; ??considered protective of heart disease. Literature Reference: See Cholesterol Current interpretive data was last revised on 2008. ?Test: Triglycerides i ??LDL Chol (Calc) i ? Reference: [0-150] ?[0-129] ? Units: mg/dL ?mg/dL 09/04/2012 ?? 12:50:00 ?? 181 ??H ? 118 09/04/2012 12:50:00 Triglycerides: Interpretive Data Desirable: ? < 150 mg/dL Borderline High: ? 150 - 199 mg/dL High: ?> 200 mg/dL Literature Reference: See Cholesterol Current interpretive data was last revised on 06. ?LIPIDS 09/04/2012 12:50:00 LDL Chol (Calc): Interpretive Data Optimal: ? < 100 mg/dL Near Optimal: ?100 - 129 mg/dL Borderline High: ?? 130 - 159 mg/dL High: ?> 160 mg/dL Literature Reference: See Cholesterol Current interpretive data was last revised on 06. ?Test: non-HDL Cholesterol i ? Reference: ? Units: mg/dL 09/04/2012 ?? 12:50:00 ?? 154 09/04/2012 12:50:00 non-HDL Cholesterol: Interpretive Data When triglycerides are >200 mg/dL, non-HDL C is a secondary target of therapy, with a goal 30 mg/dL higher than the identified LDL-C goal. Reference: ??See Cholesterol Reference. Current interpretive data was last revised 2011. ?ENZYMES ?Test: Alkaline Phosphatase ??ALT ?AST ? Reference: [38-126] ?[7-53] ?? [11-47] ? Units: Units/L ? Units/L ??Units/L 09/14/2012 ?? 01:41:00 ?? 79 ?33 ? 13 09/10/2012 ?? 22:02:00 ?? 91 ?62 ??H ?30 09/10/2012 ?? 06:10:00 ?? 94 ?75 ??H ?43 09/08/2012 ?? 22:45:00 ?? 84 ?58 ??H ?38 09/07/2012 ?? 21:51:00 ?? 83 ?54 ??H ?35 09/06/2012 ?? 22:26:00 ?? 84 ?57 ??H ?29 09/05/2012 ?? 23:00:00 ?? 84 ?65 ??H ?43 09/04/2012 ?? 21:30:00 ?? 84 ?74 ??H ?77 ??H ? CARDIAC PROTEINS ?Test: Troponin I ? Reference: [0.00-0.24] ? Units: ng/mL 09/05/2012 ?? 13:20:00 ?? 3.02 ??Cf 09/05/2012 ?? 04:22:00 ?? 3.49 ??Cf 09/04/2012 ?? 21:30:00 ?? 4.15 ??Cf 09/04/2012 ?? 12:50:00 ?? 1.71 ??Cf ? CARDIAC PROTEINS 09/04/2012 12:50:00 Troponin I: Interpretive Data Normal Range: <0.07 ng/mL: Negative 0.07 - 0.24 ng/mL: Elevated, may be consistent with Myocardial Injury/Ischemia but is nondiagnostic and of equivocal significance. Consider obtaining additional Troponin values. (JAM Karey Cardiol 2000; 36:959. Circulation 2000; 102: 1193., 2002; 106: 1893., 2003: 108: 2543) Greater than or equal to 0.25 ng/mL: Positive Troponin, suggest establishing rising or falling pattern and evidence of Cardiac Ischemia for consideration of Myocardial Infarction. Current interpretive data was last revised on 2007. 09/05/2012 13:20:00 ??Troponin I: Previous critical value noted 8 hours ago. 09/05/2012 04:22:00 ??Troponin I: Previous critical value noted 6 hours ago. 09/04/2012 21:30:00 ??Troponin I: Previous critical value noted 8 hours ago. 09/04/2012 12:50:00 ??Troponin I: Critical result called to Jagjit ARTEAGA) on 09/04/2012 15:03:16 CDT by lmr. Informed the caregiver that the Troponin result is being retested. If the repeated result does not match the original, they will be notified. ?URINALYSIS ?Macroscopic ?Test: Color ? Clarity ??Specific [place] ? Reference: [Yellow] ?[Clear] ??[1.003-1.030] ? Units: 09/14/2012 ?? 14:41:00 ?? Light-Yellow ??Clear ?1.009 09/14/2012 14:41:00 ??UA Flex C/S: Ordered per Diana Haque RN. 09/14/2012 16:31:36 CDT ep ?Test: pH ? Albumin ?? Glucose ? Ketones ? Reference: [5.0-8.0] ??[Trace] ?? [Negative] ??[Negative] ? Units: 09/14/2012 ?? 14:41:00 ?? 6.0 ?Negative ??Negative ?Negative ?Test: Bilirubin ?? Blood ? Urobilinogen ? Reference: [Negative] ??[Negative] ??[0.0-2.0] ? Units: ? mg/dL 09/14/2012 ?? 14:41:00 ?? Negative ?Negative ?<2.0 ?Test: Nitrite ? Leuk Esterase ? Reference: [Negative] ??[Negative] ? Units: 09/14/2012 ?? 14:41:00 ?? Negative ?Negative ? COMPLETE BLOOD COUNT ?Test: WBC ?RBC ?Hgb ? Reference: [3.8-9.8] ??[3.90-5.00] ??[12.1-15.1] ? Units: K/cumm ? M/cumm ? g/dL 09/21/2012 ?? 01:55:00 ?? 5.6 ?3.71 ??L ?10.6 ??L 09/20/2012 ?? 00:40:00 ?? 5.8 ?3.56 ??L ?10.3 ??L 09/19/2012 ?? 00:30:00 ?? 5.4 ?3.52 ??L ?10.2 ??L 09/18/2012 ?? 01:00:00 ?? 5.2 ?2.96 ??L ?8.7 ??L 09/17/2012 ?? 14:40:00 ?? 7.1 ?3.41 ??L ?10.0 ??L 09/17/2012 ?? 00:01:00 ?? 7.4 ?3.43 ??L ?10.1 ??L 09/16/2012 ?? 05:15:00 ?? 5.1 ?3.40 ??L ?9.9 ??L 09/15/2012 ?? 21:10:00 ?? 8.9 ?3.18 ??L ?9.7 ??L 09/15/2012 ?? 05:12:00 ?? 4.5 ?3.29 ??L ?9.9 ??L 09/14/2012 ?? 14:36:00 ?? 5.2 ?3.44 ??L ?10.3 ??L 09/14/2012 ?? 01:41:00 ?? 6.4 ?3.53 ??L ?10.6 ??L 09/13/2012 ?? 02:09:00 ?? 6.5 ?3.57 ??L ?10.7 ??L 09/10/2012 ?? 22:02:00 ?? 5.7 ?3.27 ??L ?10.0 ??L 09/10/2012 ?? 06:10:00 ?? 4.3 ?3.44 ??L ?10.3 ??L 09/08/2012 ?? 22:45:00 ?? 5.9 ?3.28 ??L ?9.8 ??L 09/07/2012 ?? 21:51:00 ?? 5.2 ?3.64 ??L ?10.9 ??L 09/06/2012 ?? 22:26:00 ?? 5.4 ?3.63 ??L ?11.0 ??L 09/05/2012 ?? 23:00:00 ?? 5.0 ?3.71 ??L ?11.2 ??L 09/04/2012 ?? 21:30:00 ?? 4.2 ?3.94 ? 12.0 ??L 09/04/2012 ?? 12:50:00 ?? 5.1 ?4.28 ? 12.8 ?Test: Hct ?Platelet Ct ??MCV ? Reference: [36.1-44.3] ??[140-440] ?[80.0-97.6] ? Units: % ?K/cumm ? fL 09/21/2012 ?? 01:55:00 ?? 32.7 ??L ?226 ?88.1 09/20/2012 ?? 00:40:00 ?? 31.0 ??L ?177 ?87.1 09/19/2012 ?? 00:30:00 ?? 30.6 ??L ?148 ?87.0 09/18/2012 ?? 01:00:00 ?? 25.9 ??L ?118 ??L ? 87.3 09/17/2012 ?? 14:40:00 ?? 30.0 ??L ?134 ??L ? 88.0 09/17/2012 ?? 00:01:00 ?? 30.0 ??L ?130 ??L ? 87.2 09/16/2012 ?? 05:15:00 ?? 29.4 ??L ?110 ??L ? 86.4 09/15/2012 ?? 21:10:00 ?? 28.5 ??L ?123 ??Lf ?89.6 09/15/2012 ?? 05:12:00 ?? 29.6 ??L ?220 ?90.0 09/14/2012 ?? 14:36:00 ?? 30.8 ??L ?218 ?89.7 09/14/2012 ?? 01:41:00 ?? 31.9 ??L ?227 ?90.6 09/13/2012 ?? 02:09:00 ?? 32.7 ??L ?217 ?91.7 09/10/2012 ?? 22:02:00 ?? 29.3 ??L ?242 ?89.6 09/10/2012 ?? 06:10:00 ?? 31.2 ??L ?241 ?90.9 09/08/2012 ?? 22:45:00 ?? 29.4 ??L ?238 ?89.5 09/07/2012 ?? 21:51:00 ?? 32.2 ??L ?257 ?88.6 09/06/2012 ?? 22:26:00 ?? 32.2 ??L ?238 ?88.9 09/05/2012 ?? 23:00:00 ?? 33.1 ??L ?229 ?89.3 09/04/2012 ?? 21:30:00 ?? 34.8 ??L ?225 ?88.4 09/04/2012 ?? 12:50:00 ?? 38.1 ? 217 ?88.9 09/15/2012 21:10:00 ??Platelet Ct: No clot detected in sample. ?Test: MCH ?MCHC ? RDW ? Reference: [26.7-33.7] ??[32.7-35.5] ??[11.8-14.6] ? Units: pg ? g/dL ? % 09/21/2012 ?? 01:55:00 ?? 28.8 ? 32.6 ??L ?15.1 ??H 09/20/2012 ?? 00:40:00 ?? 28.9 ? 33.1 ? 15.2 ??H ? COMPLETE BLOOD COUNT ?Test: MCH ?MCHC ? RDW ? Reference: [26.7-33.7] ??[32.7-35.5] ??[11.8-14.6] ? Units: pg ? g/dL ? % 09/19/2012 ?? 00:30:00 ?? 29.0 ? 33.4 ? 15.5 ??H 09/18/2012 ?? 01:00:00 ?? 29.3 ? 33.6 ? 15.2 ??H 09/17/2012 ?? 14:40:00 ?? 29.3 ? 33.3 ? 15.2 ??H 09/17/2012 ?? 00:01:00 ?? 29.3 ? 33.6 ? 15.5 ??H 09/16/2012 ?? 05:15:00 ?? 29.1 ? 33.7 ? 14.6 09/15/2012 ?? 21:10:00 ?? 30.5 ? 34.1 ? 12.6 09/15/2012 ?? 05:12:00 ?? 30.1 ? 33.4 ? 12.5 09/14/2012 ?? 14:36:00 ?? 29.8 ? 33.2 ? 12.7 09/14/2012 ?? 01:41:00 ?? 30.0 ? 33.2 ? 12.3 09/13/2012 ?? 02:09:00 ?? 29.9 ? 32.6 ??L ?12.7 09/10/2012 ?? 22:02:00 ?? 30.4 ? 34.0 ? 12.7 09/10/2012 ?? 06:10:00 ?? 30.0 ? 33.0 ? 12.8 09/08/2012 ?? 22:45:00 ?? 30.0 ? 33.5 ? 12.5 09/07/2012 ?? 21:51:00 ?? 29.9 ? 33.7 ? 12.4 09/06/2012 ?? 22:26:00 ?? 30.3 ? 34.0 ? 12.9 09/05/2012 ?? 23:00:00 ?? 30.1 ? 33.8 ? 13.1 09/04/2012 ?? 21:30:00 ?? 30.4 ? 34.4 ? 12.6 09/04/2012 ?? 12:50:00 ?? 29.9 ? 33.6 ? 12.6 ?Test: MPV ? Reference: [6.8-10.4] ? Units: fL 09/21/2012 ?? 01:55:00 ?? 9.6 09/20/2012 ?? 00:40:00 ?? 10.1 09/19/2012 ?? 00:30:00 ?? 10.5 ??H 09/18/2012 ?? 01:00:00 ?? 10.9 ??H 09/17/2012 ?? 14:40:00 ?? 10.7 ??H 09/17/2012 ?? 00:01:00 ?? 10.9 ??H 09/16/2012 ?? 05:15:00 ?? 10.4 09/15/2012 ?? 21:10:00 ?? 9.9 09/15/2012 ?? 05:12:00 ?? 10.4 09/14/2012 ?? 14:36:00 ?? 10.8 ??H 09/14/2012 ?? 01:41:00 ?? 10.2 09/13/2012 ?? 02:09:00 ?? 10.4 09/10/2012 ?? 22:02:00 ?? 9.8 09/10/2012 ?? 06:10:00 ?? 9.5 09/08/2012 ?? 22:45:00 ?? 9.4 09/07/2012 ?? 21:51:00 ?? 9.3 09/06/2012 ?? 22:26:00 ?? 9.4 09/05/2012 ?? 23:00:00 ?? 9.4 09/04/2012 ?? 21:30:00 ?? 9.5 09/04/2012 ?? 12:50:00 ?? 9.6 ? AUTOMATED WHITE CELL DIFFERENTIAL ?Test: Neut Pct Auto ??Lymph Pct Auto ??Rosebud Pct Auto ? Reference: [38.7-74.5] ?[20.0-54.3] ? [4.3-13.5] ? Units: % ?% ? % 09/21/2012 ?? 01:55:00 ?? 54.4 ? 29.6 ?12.1 09/20/2012 ?? 00:40:00 ?? 51.8 ? 32.6 ?11.6 09/19/2012 ?? 00:30:00 ?? 59.0 ? 28.8 ?10.7 ? AUTOMATED WHITE CELL DIFFERENTIAL ?Test: Neut Pct Auto ??Lymph Pct Auto ??Rosebud Pct Auto ? Reference: [38.7-74.5] ?[20.0-54.3] ? [4.3-13.5] ? Units: % ?% ? % 09/18/2012 ?? 01:00:00 ?? 64.7 ? 22.3 ?12.4 09/17/2012 ?? 14:40:00 ?? 73.4 ? 14.5 ??L ? 11.8 09/17/2012 ?? 00:01:00 ?? 75.7 ??H ?12.4 ??L ? 11.6 09/16/2012 ?? 05:15:00 ?? 85.0 ??H ?5.4 ??L ?9.6 09/15/2012 ?? 05:12:00 ?? 52.1 ? 31.8 ?13.9 ??H 09/14/2012 ?? 01:41:00 ?? 63.5 ? 22.3 ?12.7 09/10/2012 ?? 22:02:00 ?? 61.2 ? 28.3 ?9.0 09/08/2012 ?? 22:45:00 ?? 61.5 ? 23.9 ?13.4 09/05/2012 ?? 23:00:00 ?? 47.1 ? 37.0 ?14.6 ??H 09/04/2012 ?? 21:30:00 ?? 43.5 ? 44.4 ?11.0 09/04/2012 ?? 12:50:00 ?? 61.0 ? 25.7 ?12.5 ?Test: Eos Pct Auto ??Baso Pct Auto ??Neut Abs Auto ? Reference: [0.0-6.0] ? [0.0-3.0] ?[1.8-6.6] ? Units: % ? % ?K/cumm 09/21/2012 ?? 01:55:00 ?? 3.1 ? 0.8 ?3.0 09/20/2012 ?? 00:40:00 ?? 3.2 ? 0.8 ?3.0 09/19/2012 ?? 00:30:00 ?? 1.0 ? 0.5 ?3.2 09/18/2012 ?? 01:00:00 ?? 0.3 ? 0.3 ?3.4 09/17/2012 ?? 14:40:00 ?? 0.0 ? 0.3 ?5.2 09/17/2012 ?? 00:01:00 ?? 0.0 ? 0.3 ?5.6 09/16/2012 ?? 05:15:00 ?? 0.0 ? 0.0 ?4.4 09/15/2012 ?? 05:12:00 ?? 1.1 ? 1.1 ?2.3 09/14/2012 ?? 01:41:00 ?? 0.9 ? 0.6 ?4.1 09/10/2012 ?? 22:02:00 ?? 0.8 ? 0.7 ?3.5 09/08/2012 ?? 22:45:00 ?? 0.8 ? 0.4 ?3.6 09/05/2012 ?? 23:00:00 ?? 0.7 ? 0.6 ?2.4 09/04/2012 ?? 21:30:00 ?? 0.5 ? 0.6 ?1.8 09/04/2012 ?? 12:50:00 ?? 0.3 ? 0.5 ?3.1 ?Test: Lymph Abs Auto ??Rosebud Abs Auto ??Eos Abs Auto ? Reference: [1.2-3.3] ? [0.2-1.2] ?[0.0-0.5] ? Units: K/cumm ?K/cumm ? K/cumm 09/21/2012 ?? 01:55:00 ?? 1.6 ? 0.7 ?0.2 09/20/2012 ?? 00:40:00 ?? 1.9 ? 0.7 ?0.2 09/19/2012 ?? 00:30:00 ?? 1.6 ? 0.6 ?0.1 09/18/2012 ?? 01:00:00 ?? 1.2 ? 0.6 ?0.0 09/17/2012 ?? 14:40:00 ?? 1.0 ??L ?0.8 ?0.0 09/17/2012 ?? 00:01:00 ?? 0.9 ??L ?0.9 ?0.0 09/16/2012 ?? 05:15:00 ?? 0.3 ??L ?0.5 ?0.0 09/15/2012 ?? 05:12:00 ?? 1.4 ? 0.6 ?0.0 09/14/2012 ?? 01:41:00 ?? 1.4 ? 0.8 ?0.1 09/10/2012 ?? 22:02:00 ?? 1.6 ? 0.5 ?0.0 09/08/2012 ?? 22:45:00 ?? 1.4 ? 0.8 ?0.0 09/05/2012 ?? 23:00:00 ?? 1.8 ? 0.7 ?0.0 09/04/2012 ?? 21:30:00 ?? 1.9 ? 0.5 ?0.0 09/04/2012 ?? 12:50:00 ?? 1.3 ? 0.6 ?0.0 ?Test: Baso Abs Auto ??Consistent Result ? Reference: [0.0-0.2] ? Units: K/cumm 09/21/2012 ?? 01:55:00 ?? 0.0 09/20/2012 ?? 00:40:00 ?? 0.0 ? AUTOMATED WHITE CELL DIFFERENTIAL ?Test: Baso Abs Auto ??Consistent Result ? Reference: [0.0-0.2] ? Units: K/cumm 09/19/2012 ?? 00:30:00 ?? 0.0 ?See Below 09/18/2012 ?? 01:00:00 ?? 0.0 09/17/2012 ?? 14:40:00 ?? 0.0 09/17/2012 ?? 00:01:00 ?? 0.0 ?See Below 09/16/2012 ?? 05:15:00 ?? 0.0 09/15/2012 ?? 05:12:00 ?? 0.0 09/14/2012 ?? 01:41:00 ?? 0.0 09/10/2012 ?? 22:02:00 ?? 0.0 09/08/2012 ?? 22:45:00 ?? 0.0 09/05/2012 ?? 23:00:00 ?? 0.0 09/04/2012 ?? 21:30:00 ?? 0.0 09/04/2012 ?? 12:50:00 ?? 0.0 09/19/2012 ??00:30:00 ??Consistent Result ? Consistent with previous results. 09/17/2012 ??00:01:00 ??Consistent Result ? Consistent with previous results. ? HEMOSTASIS AND THROMBOSIS ?Routine Coagulation Studies ?Test: PT ?INR i ?aPTT i ? Reference: [9.0-12.0] ??[0.90-1.20] ??[25.0-37.0] ? Units: sec ?sec 09/15/2012 ?? 21:10:00 ?? 14.7 ??H ? 1.42 ??H ?30.6 09/14/2012 ?? 22:10:00 ?? 12.0 ?1.17 ? 36.2 09/14/2012 ?? 14:36:00 ?60.9 ??H 09/14/2012 ?? 01:41:00 ?67.9 ??H 09/13/2012 ?? 14:25:00 ?68.3 ??H 09/13/2012 ?? 02:05:00 ?68.9 ??H 09/11/2012 ?? 09:43:00 ?60.4 ??H 09/10/2012 ?? 22:02:00 ?? 13.2 ??H ? 1.28 ??H ?61.3 ??H 09/10/2012 ?? 06:10:00 ?? 13.2 ??H ? 1.28 ??H ?63.9 ??H 09/09/2012 ?? 17:30:00 ?62.3 ??H 09/09/2012 ?? 04:55:00 ?66.7 ??H 09/08/2012 ?? 22:45:00 ?? 13.1 ??H ? 1.27 ??H ?63.8 ??H 09/08/2012 ?? 16:46:00 ?46.5 ??H 09/08/2012 ?? 08:50:00 ?71.4 ??H 09/07/2012 ?? 21:51:00 ?47.3 ??H 09/06/2012 ?? 22:20:00 ?? 11.5 ?1.12 ? 67.7 ??H 09/06/2012 ?? 15:45:00 ?69.4 ??H 09/06/2012 ?? 07:00:00 ?58.7 ??H 09/05/2012 ?? 23:00:00 ?? 11.2 ?1.09 ? 52.0 ??H 09/05/2012 ?? 13:20:00 ?52.9 ??H 09/05/2012 ?? 04:00:00 ?130.4 ??H 09/04/2012 ?? 21:30:00 ?? 11.4 ?1.11 ? 85.2 ??H 09/04/2012 ?? 12:50:00 ?? 10.6 ?1.04 ? 36.8 ? HEMOSTASIS AND THROMBOSIS ?Routine Coagulation Studies 09/04/2012 12:50:00 INR: Interpretive Data Inpatient therapeutic ranges* Atrial fibrillation ?2.0-3.0 INR Venous thrombo-embolism ?2.0-3.0 INR Bioprosthetic heart valve ?* Mechanical heart valve, bileaflet or tilting disk,aortic position ? 2.0-3.0 INR All other,or bileaflet or tilting disk, in mitral position ? 2.5-3.5 INR *See the pharmacy resource directory (PHRED) for an updated copy of the Tool Book at [email or web address] Current Interpretive Data was last revised 2011. 09/04/2012 12:50:00 aPTT: Interpretive Data Therapeutic heparin range:60.0 - 94.0 sec based on correlation with therapeutic heparin activity range of 0.3 -0.7 Units/mL. Current interpretive data was last revised on 2011. ? TRANSFUSION MEDICINE ?Test: Indirect Cheri. ??ABO/Rh Pat Interp ? Reference: ? Units: 09/16/2012 ?? 05:19:00 ?? Negative ?B Negative 09/14/2012 ?? 22:10:00 ? B Negative 09/14/2012 ?? 14:36:00 ?? Negative ?B Negative ?POINT OF CARE TESTS ? Chemistry ?Test: Gluc WB POC ??Gluc comment 1 ??pH Art gPOC ? Reference: [65-199] ? [7.35-7.45] ? Units: mg/dL 09/17/2012 ?? 08:39:00 ?? 147 09/17/2012 ?? 03:14:00 ?? 124 09/17/2012 ?? 00:22:00 ?? 122 09/16/2012 ?? 20:09:00 ?? 132 09/16/2012 ?? 17:03:00 ?? 107 09/16/2012 ?? 11:31:00 ?? 119 ?RN Notified 09/16/2012 ?? 08:27:00 ?? 139 09/16/2012 ?? 07:13:00 ?? 87 09/16/2012 ?? 05:53:00 ?? 89 09/16/2012 ?? 03:56:00 ?? 109 09/16/2012 ?? 02:08:00 ?? 140 09/15/2012 ?? 23:45:00 ?? 130 09/15/2012 ?? 21:27:00 ?? 213 ??H 09/15/2012 ?? 19:53:00 ?7.34 ??L 09/15/2012 ?? 18:52:00 ?7.48 ??H 09/15/2012 ?? 18:24:00 ?7.38 ?POINT OF CARE TESTS ? Chemistry ?Test: Gluc WB POC ??Gluc comment 1 ??pH Art gPOC ? Reference: [65-199] ? [7.35-7.45] ? Units: mg/dL 09/15/2012 ?? 15:50:00 ?7.44 ?Test: pCO2 Art gPOC ??pO2 Art gPOC ??Bicarb Art gPOC ? Reference: [35-45] ?[80-105] ?[18-28] ? Units: mmHg ? mmHg ?mmol/L 09/15/2012 ?? 19:53:00 ?? 42 ? 200 ??H ?23 09/15/2012 ?? 18:52:00 ?? 38 ? 318 ??H ?28 09/15/2012 ?? 18:24:00 ?? 32 ??L ?502 ??H ?19 09/15/2012 ?? 15:50:00 ?? 33 ??L ?525 ??H ?22 ?Test: TCO2 Art gPOC ??O2 Sat Art gPOC ? Reference: [20-30] ?[95-98] ? Units: mmol/L ? % 09/15/2012 ?? 19:53:00 ?? 24 ? 100 ??H 09/15/2012 ?? 18:52:00 ?? 30 ? 100 ??H 09/15/2012 ?? 18:24:00 ?? 20 ? 100 ??H 09/15/2012 ?? 15:50:00 ?? 23 ? 100 ??H ?Test: Base Ex Art gPOC ??Sodium gPOC ??Potass gPOC ? Reference: ? [135-145] ?[3.3-4.9] ? Units: mmol/L ?mmol/L ? mmol/L 09/15/2012 ?? 19:53:00 ?? -2.9 ?141 ?4.0 09/15/2012 ?? 18:52:00 ?? 4.4 ? 143 ?4.9 09/15/2012 ?? 18:24:00 ?? -5.7 ?137 ?5.1 ??H 09/15/2012 ?? 15:50:00 ?? -1.3 ?142 ?3.9 ?Test: Ca Ion gPOC ??Gluc gPOC ??HCT gPOC ? Reference: [4.50-5.10] ??[65-199] ?? [36.1-44.3] ? Units: mg/dL ?mg/dL ?% 09/15/2012 ?? 19:53:00 ?? 5.25 ??H ?223 ??H ? 23.0 ??L 09/15/2012 ?? 18:52:00 ?? 4.29 ??L ?243 ??H ? 20.0 ??L 09/15/2012 ?? 18:24:00 ?? 4.57 ? 227 ??H ? 18.0 ??L 09/15/2012 ?? 15:50:00 ?? 5.09 ? 93 ? 31.0 ??L ?Hematology ?Test: HCT cPOC ? Platelet cPOC ? Reference: [36.1-44.3] ??[140-440] ? Units: % ?K/cumm 09/15/2012 ?? 19:51:00 ?? 23.5 ??L ?156 ?Coagulation ?Test: PT sPOC ?INR sPOC ?? aPTT sPOC ? Reference: [12.1-17.0] ??[1.0-1.3] ??[29.3-45.4] ? Units: sec ? sec 09/15/2012 ?? 19:51:00 ?? 23.8 ??H ?1.8 ??H 09/15/2012 ?? 19:51:00 ? 30.8 ?POINT OF CARE TESTS ?Coagulation ?Test: ACT LO sPOC ??Base ACT hPOC ??HDR [place] hPOC ? Reference: [123-168] ?[112-174] ?[60-195] ? Units: sec ?sec 09/15/2012 ?? 15:45:00 ?144 ?100 09/07/2012 ?? 09:12:00 ?? 275 ??H 09/07/2012 ?? 09:01:00 ?? 218 ??H 09/07/2012 ?? 08:34:00 ?? 139 ?Test: Proj Hep Conc hPOC ??Heparin hPOC ??ACT hPOC ? Reference: ? [112-174] ? Units: units/mL ?units/mL ?sec 09/15/2012 ?? 19:50:00 ? 0.0 ? 142 09/15/2012 ?? 18:22:00 ? 4.1 ? 599 ??H 09/15/2012 ?? 17:22:00 ? >4.7 ?645 ??H 09/15/2012 ?? 15:45:00 ?? 3.4 ? MICROBIOLOGY - ALL TESTS ? PROCEDURE: Influenza PCR ?SOURCE: Nasopharyngeal COLLECTED: 09/05/12 ??0440 ? BODY SITE: STARTED: 09/05/12 ??0559 FREE TEXT SOURCE: FINAL REPORT REPORTED: 09/05/12 1140 Flu A target RNA not detected Flu B target RNA not detected * * * ??Interpretive Results ??* * * (1)This test has been performed using the Enish Xpert Flu Assay. This is a multiplex, real-time reverse transcriptase PCR assay that detects and differentiates influenza A, 2009 H1N1 influenza A, and influenza B viral RNA. ??This assay has been cleared by the US Food and Drug Administration, and its performance characteristics have been verified by the [facility].Current interpretive data was last revised on 2011. ? MICROBIOLOGY - ALL TESTS ? PROCEDURE: MRSA Surveillance Culture ?SOURCE: Nasal COLLECTED: 09/16/12 ??1234 ? BODY SITE: STARTED: 09/16/12 ??1327 FREE TEXT SOURCE: FINAL REPORT REPORTED: 09/18/12 1338 Negative * * * ??Interpretive Results ??* * * (1)This test is for Infection Prevention surveillance; no charge to the patient. ? PROCEDURE: MRSA Surveillance Culture ?SOURCE: Nasal COLLECTED: 09/15/12 ??2119 ? BODY SITE: STARTED: 09/15/12 ??2234 FREE TEXT SOURCE: FINAL REPORT REPORTED: 09/17/12 1327 Negative ORDER COMMENTS (1)Specimen received on an aerobic culturette. * * * ??Interpretive Results ??* * * (1)This test is for Infection Prevention surveillance; no charge to the patient. ? MICROBIOLOGY - MISCELLANEOUS ? PROCEDURE: MRSA Surveillance Culture ?SOURCE: Nasal COLLECTED: 09/16/12 ??1234 ? BODY SITE: STARTED: 09/16/12 ??1327 FREE TEXT SOURCE: FINAL REPORT REPORTED: 09/18/12 1338 Negative * * * ??Interpretive Results ??* * * (1)This test is for Infection Prevention surveillance; no charge to the patient. ? PROCEDURE: MRSA Surveillance Culture ?SOURCE: Nasal COLLECTED: 09/15/12 ??2119 ? BODY SITE: STARTED: 09/15/12 ??2234 FREE TEXT SOURCE: FINAL REPORT REPORTED: 09/17/12 1327 Negative ORDER COMMENTS (1)Specimen received on an aerobic culturette. * * * ??Interpretive Results ??* * * (1)This test is for Infection Prevention surveillance; no charge to the patient. ? MICROBIOLOGY - MOLECULAR TESTING ? PROCEDURE: Influenza PCR ?SOURCE: Nasopharyngeal COLLECTED: 09/05/12 ??0440 ? BODY SITE: STARTED: 09/05/12 ??0559 FREE TEXT SOURCE: FINAL REPORT REPORTED: 09/05/12 1140 Flu A target RNA not detected Flu B target RNA not detected * * * ??Interpretive Results ??* * * (1)This test has been performed using the Enish Xpert Flu Assay. This is a multiplex, real-time reverse transcriptase PCR assay that detects and differentiates influenza A, 2009 H1N1 influenza A, and influenza B viral RNA. ??This assay has been cleared by the US Food and Drug Administration, and its performance characteristics have been verified by the [facility].Current interpretive data was last revised on 2011. ? CANCELLED TESTS Date ?Time ?Test ?Cancel Reason 09/04/2012 ??19:06:00 ??Troponin I ?NCHG Not Received 09/04/2012 ??19:30:00 ??CBC Express ? Dup Cancel 09/04/2012 ??19:30:00 ??CBC Express ? Lab Operations Cancel 09/04/2012 ??19:30:00 ??aPTT ?Lab Operations Cancel 09/04/2012 ??19:30:00 ??PT ?Lab Operations Cancel 09/04/2012 ??19:31:00 ??PCR INFL [facility] ?Lab Operations Cancel 09/04/2012 ??21:06:00 ??aPTT ?Lab Operations Cancel 09/06/2012 ??21:00:00 ??aPTT ?Dup Cancel 09/07/2012 ??19:30:00 ??CBC Express 09/07/2012 ??21:00:00 ??aPTT ?Dup Cancel 09/08/2012 ??11:57:00 ??CBC Express ? Lab Operations Cancel 09/08/2012 ??21:00:00 ??Basic Met Plas ??NCHG Duplicate 09/10/2012 ??22:01:00 ??aPTT ?NCHG Duplicate 09/14/2012 ??14:41:00 ??UA Flex C/S 09/15/2012 ??21:25:00 ??Basic Met Plas 09/15/2012 ??21:25:00 ??CBC Express 09/15/2012 ??21:25:00 ??Magnesium 09/15/2012 ??21:25:00 ??Phos Plas 09/15/2012 ??21:45:00 ??Bld Gas Art ? NCHG Specimen Too Old 09/15/2012 ??21:45:00 ??Hgb Sat PA [facility] ??NCHG Specimen Too Old 09/15/2012 ??21:45:00 ??Unacceptable ?NCHG Duplicate 09/20/2012 ??11:57:00 ??CBC Express ? Lab Operations Cancel us Historical Provider LAB BLOOD ORDERABLES Caitlyn l Result HISTORICAL RESULTS * Transthoracic Echo Complete W Doppler/CF WO Contrast (09/21/2012 12:00 AM CDT) Anatomical Region Laterality Modality Ultrasound 09/21/2012 Narrative 09/21/2012 12:00 AM CDT Patient name: James Cueva Date of test: 09/21/2012 Type of test: TTE w/Doppler Hospital #: [id number] Date of : 1945 (F) Chief Resource Officer: Mary Carmen Grimes RDCS Referring Physician: Irineo Reinoso MD Contrast Agent: Optison (3cc/5cc saline) Contrast Administered by: Cassy Ventura RN Supervised/Interpreted by: Cassandra Dunham MD Diagnosis: Location: 720 ([facility]) Reason for test: Evaluate Left Ventricular Function, S/P CABG MV Structure: Normal, ?MV Motion: Normal, ?? Mitral Annulus: Normal AV Structure: tricuspid and is Normal, ?? AV Motion: Normal Aotic root: Normal, ?TM: Normal, ?? PV: Normal Valvular Vegetations: none seen, ?Mass/Thrombi: none seen RA: Normal Measurements: ?M-Mode ?Normal ?Indexed ?? Aotic Root: 3.3 cm ?< 3.8 cm ? LA: ? 4.0 cm ?< 3.8 ? 2.3 cm/m2 RV: ? < 2.8 cm ? LV(ED): ? < 5.7 cm ? LEV(ES): ?Variable ?2D Linear Normal ?2D Vol. ?? Normal ? Aotic Root: ? NA ?NA ? LA: ? < 3.8 ?<22 +/- 6 RV: ? < 3.3 cm ?11-28 cm2 LV(ED): ? < 5.3 cm ?56-104 ? LEV(ES): ?Variable ?19-49 mL ?? LV EF: 55 % ?(Normal: > 54%) LV Wall Thickness: 1.3 cm Wall Motion Scoring (1=Normal 2=Hypo 3=Akinetic 4=Dyskin. 5=Aneurysm 0=Not visualized) Parasternal Long [place]:MAS=1 BAS=1 MP=1 BP=1 Parasternal Short [place]:MAS=1 MS=1 CO=1 MP=1 ML=1 MA=1 Apical 4 Chambers:=1 MS=1 BS=1 BL=1 CO=1 AL=1 Apical 2 Chambers:AI=1 CO=1 BI=1 BA=1 MA=1 AA=1 LV Function: Normal LV Systolic Function, ??(EF = 55%) RV Function: Normal Septal Motion: paradoxic Pericardial Effusion: none seen Atrial Septum: Normal DOPPLER/COLOR FOLOW DOPPLER RESULTS: Diastolic Function: Impaired Relaxation Tricuspid Valve: normal TV Pulmonic Valve: normal PV AV Regurgitation: trace AR seen AV Stenosis: no AV Area: ??cm2 AV Pressure Gradient (mmHg): Mean: 0, Peak:0 MV Regurgitation: No MR seen MV Stenosis: no MS MV Area: ??cm2 MV Pressure Gradient (mmHg): Mean: 0 MV ERO: ??cm Regurg. Vol.: ??ml/beat Regurg. Frac.: ??% PA Pressure: ??mmHg DOPPLER/COLOR FOLOW DOPPLER COMMENTS: trace AR seen, No MR seen, no , no MS, normal TV, normal PV. Diastolic function: Impaired Relaxation SUMMARY: Contrast enhancement was employed after initial imaging due to sub-optimal quality related to co-morbidity defined by patient's body habitus. Normal LV and RV size and systolic function. E/A reversal c/w impaired diastolic function. LA is mildly dilated. Mild concentric LV hypertrophy. Normal Inferior vena cava. Confirmed on ??09/21/2012 - 11:27:53 by Cassandra Dunham MD By signing this report, the attending store team leader certifies that he or she has personally supervised and interpreted the echocardiogram and has reviewed and or edited and agrees with the written comments contained within the report. 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 Normal Aotic Root: NA NA LA: < 3.8 <22 +/- 6 RV: < 3.3 cm 11-28 cm2 LV(ED): < 5.3 cm 56-104 LEV(ES): Variable 19-49 mL LV EF: 55 % (Normal: > 54%) LV Wall Thickness: 1.3 cm Wall Motion Scoring (1=Normal 2=Hypo 3=Akinetic 4=Dyskin. 5=Aneurysm 0=Not visualized) Parasternal Long [place]:MAS=1 BAS=1 MP=1 BP=1 Parasternal Short [place]:MAS=1 MS=1 CO=1 MP=1 ML=1 MA=1 Apical 4 Chambers:=1 MS=1 BS=1 BL=1 CO=1 AL=1 Apical 2 Chambers:AI=1 CO=1 BI=1 BA=1 MA=1 AA=1 LV Function: Normal LV Systolic Function, (EF = 55%) RV Function: Normal Septal Motion: paradoxic Pericardial Effusion: none seen Atrial Septum: Normal DOPPLER/COLOR FOLOW DOPPLER RESULTS: Diastolic Function: Impaired Relaxation Tricuspid Valve: normal TV Pulmonic Valve: normal PV AV Regurgitation: trace AR seen AV Stenosis: no AV Area: cm2 AV Pressure Gradient (mmHg): Mean: 0, Peak:0 MV Regurgitation: No MR seen MV Stenosis: no MS MV Area: cm2 MV Pressure Gradient (mmHg): Mean: 0 MV ERO: cm Regurg. Vol.: ml/beat Regurg. Frac.: % PA Pressure: mmHg DOPPLER/COLOR FOLOW DOPPLER COMMENTS: trace AR seen, No MR seen, no , no MS, normal TV, normal PV. Diastolic function: Impaired Relaxation SUMMARY: Contrast enhancement was employed after initial imaging due to sub-optimal quality related to co-morbidity defined by patient's body habitus. Normal LV and RV size and systolic function. E/A reversal c/w impaired diastolic function. LA is mildly dilated. Mild concentric LV hypertrophy. Normal Inferior vena cava. Confirmed on 09/21/2012 - 11:27:53 by Cassandra Dunham MD By signing this report, the attending store team leader certifies that he or she has personally supervised and interpreted the echocardiogram and has reviewed and or edited and agrees with the written comments contained within the report. Historical Provider CV ECHO PROCEDURES Final Result * Plasma basic metabolic panel (09/20/2012 12:40 AM CDT) Sodium 140 135 - 145 mmol/L HISTORICAL RESULTS K, pl 4.0 3.3 - 4.9 mmol/L HISTORICAL RESULTS Chloride 107 97 - 110 mmol/L HISTORICAL RESULTS CO2 25 22 - 32 mmol/L HISTORICAL RESULTS A. gap 8 0 - 16 mmol/L HISTORICAL RESULTS Glucose 93 65 - 199 mg/dl HISTORICAL RESULTS BUN 15 8 - 25 mg/dl HISTORICAL RESULTS Creatinine 0.75 0.60 - 1.10 mg/dl HISTORICAL RESULTS Calcium 9.8 8.6 - 10.3 mg/dl HISTORICAL RESULTS Plasma 09/20/2012 12:4 0 AM CDT [facility] LAB BLOOD ORDERABLES Final Resul t HISTORICAL RESULTS * (ABNORMAL) Blood cell count (CBC) (09/20/2012 12:40 AM CDT) WBC 5.8 3.8 - 9.8 K/cumm HISTORICAL RESULTS RBC 3.56(L) 3.90 - 5.00 M/cumm HISTORICAL RESULTS Hgb 10.3(L) 12.1 - 15.1 g/dl HISTORICAL RESULTS Hct 31.0(L) 36.1 - 44.3 % HISTORICAL RESULTS MCV 87.1 80.0 - 97.6 fl HISTORICAL RESULTS MCH 28.9 26.7 - 33.7 pg HISTORICAL RESULTS MCHC 33.1 32.7 - 35.5 g/dl HISTORICAL RESULTS Rdw 15.2(H) 11.8 - 14.6 % HISTORICAL RESULTS Platelets 177 140 - 440 K/cumm HISTORICAL RESULTS MPV 10.1 6.8 - 10.4 fl HISTORICAL RESULTS Neutrophils 51.8 38.7 - 74.5 % HISTORICAL RESULTS Lymphocytes 32.6 20.0 - 54.3 % HISTORICAL RESULTS Monos 11.6 4.3 - 13.5 % HISTORICAL RESULTS Eosinophils 3.2 0.0 - 6.0 % HISTORICAL RESULTS Basophils 0.8 0.0 - 3.0 % HISTORICAL RESULTS Neutrophils, abs 3.0 1.8 - 6.6 K/cumm HISTORICAL RESULTS Lymphocytes, abs 1.9 1.2 - 3.3 K/cumm HISTORICAL RESULTS Monocytes, absolute 0.7 0.2 - 1.2 K/cumm HISTORICAL RESULTS Eosinophils, abs 0.2 0.0 - 0.5 K/cumm HISTORICAL RESULTS Basophils, abs 0.0 0.0 - 0.2 K/cumm HISTORICAL RESULTS Blood specimen (specimen) 09/20/2012 12:40 AM CDT [facility] LAB BLOOD ORDERABLES Final Resul t HISTORICAL RESULTS * CHEST RADIOGRAPHY, FRONTAL (AP), LATERAL (09/19/2012 10:12 AM CDT) Anatomical Region Laterality Modality N/A Radiographic Salima ging 09/19/2012 10:1 2 AM CDT Narrative 09/19/2012 2:24 PM CDT DIONY MAHONEY M.D. NOLA BRIGGS M.D. FINAL REPORT The radiology attending physician has personally reviewed this study, and has reviewed and/or edited this written report and agrees with it. ACC# ??Date Time ??Exam [id number] Sep 19, 2012 10:12:00 [id number] Chest 2 views Front&Lat EXAMINATION: ?? Chest two view ?? IMPRESSION: ?? Comparison: 09/18/2012 Median sternotomy wires, right internal jugular central catheter, and abdominal surgical clips appear unchanged. There are small bilateral pleural effusions and mild bibasilar atelectasis. No pneumothorax. Heart size is normal. The previously described pneumomediastinum is slightly improved. Epicardial pacing leads are noted. ?? Requested By: ARLET OLIVA Dictated By: ?? NOLA BRIGGS M.D. ??on Sep ??2012 10:43A This document has been electronically signed by: DIONY MAHONEY M.D. on Sep ??2012 ??2:24P Procedure Note Provider, MD Fidel - 10/12/2016 DIONY MAHONEY M.D. NOLA BRIGGS M.D. FINAL REPORT The radiology attending physician has personally reviewed this study, and has reviewed and/or edited this written report and agrees with it. ACC# Date Time Exam [id number] Sep 19, 2012 10:12:00 [id number] Chest 2 views Front&Lat EXAMINATION: Chest two view IMPRESSION: Comparison: 09/18/2012 Median sternotomy wires, right internal jugular central catheter, and abdominal surgical clips appear unchanged. There are small bilateral pleural effusions and mild bibasilar atelectasis. No pneumothorax. Heart size is normal. The previously described pneumomediastinum is slightly improved. Epicardial pacing leads are noted. Requested By: ARLET OLIVA Dictated By: NOLA BRIGGS M.D. on Sep 19 2012 10:43A This document has been electronically signed by: DIONY MAHONEY M.D. on Sep 19 2012 2:24P Historical Provider IMG XR PROCEDURES Final R esult * Plasma basic metabolic panel (09/19/2012 12:30 AM CDT) Sodium 142 135 - 145 mmol/L HISTORICAL RESULTS K, pl 3.9 3.3 - 4.9 mmol/L HISTORICAL RESULTS Chloride 106 97 - 110 mmol/L HISTORICAL RESULTS CO2 29 22 - 32 mmol/L HISTORICAL RESULTS A. gap 7 0 - 16 mmol/L HISTORICAL RESULTS Glucose 97 65 - 199 mg/dl HISTORICAL RESULTS BUN 12 8 - 25 mg/dl HISTORICAL RESULTS Creatinine 0.70 0.60 - 1.10 mg/dl HISTORICAL RESULTS Calcium 9.6 8.6 - 10.3 mg/dl HISTORICAL RESULTS Plasma 09/19/2012 12:3 0 AM CDT [employer] LAB BLOOD ORDERABLES Final Resul t HISTORICAL RESULTS * (ABNORMAL) Blood cell count (CBC) (09/19/2012 12:30 AM CDT) WBC 5.4 3.8 - 9.8 K/cumm HISTORICAL RESULTS RBC 3.52(L) 3.90 - 5.00 M/cumm HISTORICAL RESULTS Hgb 10.2(L) 12.1 - 15.1 g/dl HISTORICAL RESULTS Hct 30.6(L) 36.1 - 44.3 % HISTORICAL RESULTS MCV 87.0 80.0 - 97.6 fl HISTORICAL RESULTS MCH 29.0 26.7 - 33.7 pg HISTORICAL RESULTS MCHC 33.4 32.7 - 35.5 g/dl HISTORICAL RESULTS Rdw 15.5(H) 11.8 - 14.6 % HISTORICAL RESULTS Platelets 148 140 - 440 K/cumm HISTORICAL RESULTS MPV 10.5(H) 6.8 - 10.4 fl HISTORICAL RESULTS Neutrophils 59.0 38.7 - 74.5 % HISTORICAL RESULTS Lymphocytes 28.8 20.0 - 54.3 % HISTORICAL RESULTS Monos 10.7 4.3 - 13.5 % HISTORICAL RESULTS Eosinophils 1.0 0.0 - 6.0 % HISTORICAL RESULTS Basophils 0.5 0.0 - 3.0 % HISTORICAL RESULTS Neutrophils, abs 3.2 1.8 - 6.6 K/cumm HISTORICAL RESULTS Lymphocytes, abs 1.6 1.2 - 3.3 K/cumm HISTORICAL RESULTS Monocytes, absolute 0.6 0.2 - 1.2 K/cumm HISTORICAL RESULTS Eosinophils, abs 0.1 0.0 - 0.5 K/cumm HISTORICAL RESULTS Basophils, abs 0.0 0.0 - 0.2 K/cumm HISTORICAL RESULTS Blood specimen (specimen) 09/19/2012 12:30 AM CDT [facility] LAB BLOOD ORDERABLES Final Resul t HISTORICAL RESULTS * Blood consistent result (09/19/2012 12:30 AM CDT) Consistent result Consistent with previous results HISTORICAL RESULTS Blood specimen (specimen) 09/19/2012 12:30 AM CDT us Ar[facility] LAB BLOOD ORDERABLES Final Resul t HISTORICAL RESULTS * CHEST RADIOGRAPHY, FRONTAL (AP), LATERAL (09/18/2012 10:09 AM CDT) Anatomical Region Laterality Modality N/A Radiographic Salima ging 09/18/2012 10:0 9 AM CDT Narrative 09/18/2012 1:48 PM CDT NATALIA SAWYER M.D. AALIYAH RUIZ, FINAL REPORT The radiology attending physician has personally reviewed this study, and has reviewed and/or edited this written report and agrees with it. ACC# ??Date Time ??Exam [id number] Sep 18, 2012 10:09:00 [id number] Chest 2 views Front&Lat ACC# ??Date Time ??Exam [id number] Sep 18, 2012 10:09:00 [id number] Chest 2 views Front&Lat EXAMINATION: ?? Chest 2 views ?? IMPRESSION: ?? Comparison is made to prior examination dated 09/17/2012. Right internal jugular central venous catheter and median sternotomy wires appear unchanged. Surgical clips are noted in the abdomen. There has been slight interval worsening in left retrocardiac opacity which likely represents a combination of effusion and partial left lower lobe collapse. There is a small right pleural effusion. There is no pneumothorax. The cardiomediastinal silhouette is unchanged. Small amount pneumomediastinum is seen, consistent with postoperative state. ?? Requested By: ANDRIA BAR Dictated By: ?? AALIYAH RUIZ, ?? on Sep ??2012 11:24A This document has been electronically signed by: NATALIA SAWYER M.D. on Sep ??2012 ??1:48P Procedure Note Provider, MD Fidel - 10/12/2016 NATALIA SAWYER M.D. AALIYAH RUIZ, FINAL REPORT The radiology attending physician has personally reviewed this study, and has reviewed and/or edited this written report and agrees with it. ACC# Date Time Exam [id number] Sep 18, 2012 10:09:00 [id number] Chest 2 views Front&Lat ACC# Date Time Exam [id number] Sep 18, 2012 10:09:00 [id number] Chest 2 views Front&Lat EXAMINATION: Chest 2 views IMPRESSION: Comparison is made to prior examination dated 09/17/2012. Right internal jugular central venous catheter and median sternotomy wires appear unchanged. Surgical clips are noted in the abdomen. There has been slight interval worsening in left retrocardiac opacity which likely represents a combination of effusion and partial left lower lobe collapse. There is a small right pleural effusion. There is no pneumothorax. The cardiomediastinal silhouette is unchanged. Small amount pneumomediastinum is seen, consistent with postoperative state. Requested By: ANDRIA BAR Dictated By: AALIYAH RUIZ on Sep 18 2012 11:24A This document has been electronically signed by: NATALIA SAWYER M.D. on Sep 18 2012 1:48P Historical Provider MD CARLSON XR PROCEDURES Final R esult * Plasma basic metabolic panel (09/18/2012 1:00 AM CDT) Sodium 139 135 - 145 mmol/L HISTORICAL RESULTS K, pl 4.1 3.3 - 4.9 mmol/L HISTORICAL RESULTS Chloride 105 97 - 110 mmol/L HISTORICAL RESULTS CO2 28 22 - 32 mmol/L HISTORICAL RESULTS A. gap 6 0 - 16 mmol/L HISTORICAL RESULTS Glucose 105 65 - 199 mg/dl HISTORICAL RESULTS BUN 14 8 - 25 mg/dl HISTORICAL RESULTS Creatinine 0.70 0.60 - 1.10 mg/dl HISTORICAL RESULTS Calcium 9.3 8.6 - 10.3 mg/dl HISTORICAL RESULTS Plasma 09/18/2012 1:00 AM CDT [facility] [employer] LAB BLOOD ORDERABLES Final Result HISTORICAL RESULTS * (ABNORMAL) Blood cell count (CBC) (09/18/2012 1:00 AM CDT) WBC 5.2 3.8 - 9.8 K/cumm HISTORICAL RESULTS RBC 2.96(L) 3.90 - 5.00 M/cumm HISTORICAL RESULTS Hgb 8.7(L) 12.1 - 15.1 g/dl HISTORICAL RESULTS Hct 25.9(L) 36.1 - 44.3 % HISTORICAL RESULTS MCV 87.3 80.0 - 97.6 fl HISTORICAL RESULTS MCH 29.3 26.7 - 33.7 pg HISTORICAL RESULTS MCHC 33.6 32.7 - 35.5 g/dl HISTORICAL RESULTS Rdw 15.2(H) 11.8 - 14.6 % HISTORICAL RESULTS Platelets 118(L) 140 - 440 K/cumm HISTORICAL RESULTS MPV 10.9(H) 6.8 - 10.4 fl HISTORICAL RESULTS Neutrophils 64.7 38.7 - 74.5 % HISTORICAL RESULTS Lymphocytes 22.3 20.0 - 54.3 % HISTORICAL RESULTS Monos 12.4 4.3 - 13.5 % HISTORICAL RESULTS Eosinophils 0.3 0.0 - 6.0 % HISTORICAL RESULTS Basophils 0.3 0.0 - 3.0 % HISTORICAL RESULTS Neutrophils, abs 3.4 1.8 - 6.6 K/cumm HISTORICAL RESULTS Lymphocytes, abs 1.2 1.2 - 3.3 K/cumm HISTORICAL RESULTS Monocytes, absolute 0.6 0.2 - 1.2 K/cumm HISTORICAL RESULTS Eosinophils, abs 0.0 0.0 - 0.5 K/cumm HISTORICAL RESULTS Basophils, abs 0.0 0.0 - 0.2 K/cumm HISTORICAL RESULTS Blood specimen (specimen) 09/18/2012 1:00 AM CDT [facility] [employer] LAB BLOOD ORDERABLES Final Result HISTORICAL RESULTS * XR Chest 1 View (09/17/2012 3:23 PM CDT) Anatomical Region Laterality Modality Body, Chest N/A Radiographic Salima ging 09/17/2012 3:23 PM CDT Narrative 09/18/2012 7:54 AM CDT DIONY MAHONEY M.D. FINAL REPORT ACC# ??Date Time ??Exam [id number] Sep 17, 2012 15:23:00 [id number] Chest 1 view Frontal EXAMINATION: ?? Chest one view on 09/17/2012 at 15:18 IMPRESSION: ?Median sternotomy wires and coronary bypass graft markers are again seen. Compared to 129540, the mediastinal drains, left chest tube, and [place]Gonz[place] catheter have been removed. A right internal jugular central venous catheter is still present with tip at the superior cavoatrial junction. Heart size and pulmonary vascularity are normal. There is mild discoid atelectasis in the left midlung zone and left lung base. Right lung remains clear. No pleural effusion or pneumothorax. Upper abdominal clips noted. Requested By: ANDRIA BAR Dictated By: ?? DIONY MAHONEY M.D. ??on Sep ??2012 ??7:54A This document has been electronically signed by: DIONY MAHONEY M.D. on Sep?2012 ??7:54A Procedure Note Provider, MD Fidel - 10/12/2016 DIONY MAHONEY M.D. FINAL REPORT ACC# Date Time Exam [id number] Sep 17, 2012 15:23:00 [id number] Chest 1 view Frontal EXAMINATION: Chest one view on 09/17/2012 at 15:18 IMPRESSION: Median sternotomy wires and coronary bypass graft markers are again seen. Compared to [id number], the mediastinal drains, left chest tube, and [place]Gonz[place] catheter have been removed. A right internal jugular central venous catheter is still present with tip at the superior cavoatrial junction. Heart size and pulmonary vascularity are normal. There is mild discoid atelectasis in the left midlung zone and left lung base. Right lung remains clear. No pleural effusion or pneumothorax. Upper abdominal clips noted. Requested By: ANDRIA BAR Dictated By: DIONY MAHONEY M.D. on Sep 18 2012 7:54A This document has been electronically signed by: DIONY MAHONEY M.D. on Sep 18 2012 7:54A Historical Provider MD CARLSON XR PROCEDURES Final R esult * (ABNORMAL) Plasma basic metabolic panel (09/17/2012 2:40 PM CDT) Sodium 134(L) 135 - 145 mmol/L HISTORICAL RESULTS K, pl 4.2 3.3 - 4.9 mmol/L HISTORICAL RESULTS Chloride 100 97 - 110 mmol/L HISTORICAL RESULTS CO2 28 22 - 32 mmol/L HISTORICAL RESULTS A. gap 6 0 - 16 mmol/L HISTORICAL RESULTS Glucose 128 65 - 199 mg/dl HISTORICAL RESULTS BUN 18 8 - 25 mg/dl HISTORICAL RESULTS Creatinine 0.81 0.60 - 1.10 mg/dl HISTORICAL RESULTS Calcium 9.2 8.6 - 10.3 mg/dl HISTORICAL RESULTS Plasma 09/17/2012 2:40 PM CDT Andria [facility] [employer] LAB BLOOD ORDERABLES Final Result HISTORICAL RESULTS * (ABNORMAL) Blood cell count (CBC) (09/17/2012 2:40 PM CDT) Pathologist [facility] WBC 7.1 3.8 - 9.8 K/cumm HISTORICAL RESULTS RBC 3.41(L) 3.90 - 5.00 M/cumm HISTORICAL RESULTS Hgb 10.0(L) 12.1 - 15.1 g/dl HISTORICAL RESULTS Hct 30.0(L) 36.1 - 44.3 % HISTORICAL RESULTS MCV 88.0 80.0 - 97.6 fl HISTORICAL RESULTS MCH 29.3 26.7 - 33.7 pg HISTORICAL RESULTS MCHC 33.3 32.7 - 35.5 g/dl HISTORICAL RESULTS Rdw 15.2(H) 11.8 - 14.6 % HISTORICAL RESULTS Platelets 134(L) 140 - 440 K/cumm HISTORICAL RESULTS MPV 10.7(H) 6.8 - 10.4 fl HISTORICAL RESULTS Neutrophils 73.4 38.7 - 74.5 % HISTORICAL RESULTS Lymphocytes 14.5(L) 20.0 - 54.3 % HISTORICAL RESULTS Monos 11.8 4.3 - 13.5 % HISTORICAL RESULTS Eosinophils 0.0 0.0 - 6.0 % HISTORICAL RESULTS Basophils 0.3 0.0 - 3.0 % HISTORICAL RESULTS Neutrophils, abs 5.2 1.8 - 6.6 K/cumm HISTORICAL RESULTS Lymphocytes, abs 1.0(L) 1.2 - 3.3 K/cumm HISTORICAL RESULTS Monocytes, absolute 0.8 0.2 - 1.2 K/cumm HISTORICAL RESULTS Eosinophils, abs 0.0 0.0 - 0.5 K/cumm HISTORICAL RESULTS Basophils, abs 0.0 0.0 - 0.2 K/cumm HISTORICAL RESULTS Blood specimen (specimen) 09/17/2012 2:40 PM CDT Result [facility] Andria Bar NP LAB BLOOD ORDERABLES Final Result Performing Organization Address [facility] Phone Number HISTORICAL RESULTS * Blood glucose, POC (09/17/2012 8:39 AM CDT) Glucose, POC, bld 147 65 - 199 mg/dl HISTORICAL RESULTS Blood specimen (specimen) 09/17/2012 8:39 AM CDT Result [facility] Irineo Reinoso MD LAB BLOOD ORDERABLES Final Re sult Performing Organization Address [facility] Phone Number HISTORICAL RESULTS * Blood glucose, POC (09/17/2012 3:14 AM CDT) Glucose, POC, bld 124 65 - 199 mg/dl HISTORICAL RESULTS Blood specimen (specimen) 09/17/2012 3:14 AM CDT Irineo Reinoso MD LAB BLOOD ORDERABLES Final Re sult Performing Organization Address [facility] de Phone Number HISTORICAL RESULTS * Blood glucose, POC (09/17/2012 12:22 AM CDT) Glucose, POC, bld 122 65 - 199 mg/dl HISTORICAL RESULTS Blood specimen (specimen) 09/17/2012 12:22 AM CDT Irineo Reinoso MD LAB BLOOD ORDERABLES Final Re sult Performing Organization Address [facility] de Phone Number HISTORICAL RESULTS * Plasma basic metabolic panel (09/17/2012 12:01 AM CDT) Sodium 138 135 - 145 mmol/L HISTORICAL RESULTS K, pl 4.6 3.3 - 4.9 mmol/L HISTORICAL RESULTS Chloride 103 97 - 110 mmol/L HISTORICAL RESULTS CO2 27 22 - 32 mmol/L HISTORICAL RESULTS A. gap 8 0 - 16 mmol/L HISTORICAL RESULTS Glucose 117 65 - 199 mg/dl HISTORICAL RESULTS BUN 15 8 - 25 mg/dl HISTORICAL RESULTS Creatinine 0.76 0.60 - 1.10 mg/dl HISTORICAL RESULTS Calcium 9.5 8.6 - 10.3 mg/dl HISTORICAL RESULTS Plasma 09/17/2012 12:0 1 AM CDT us Historical Provider LAB BLOOD ORDERABLES Caitlyn dominguez Result HISTORICAL RESULTS * (ABNORMAL) Blood cell count (CBC) (09/17/2012 12:01 AM CDT) WBC 7.4 3.8 - 9.8 K/cumm HISTORICAL RESULTS RBC 3.43(L) 3.90 - 5.00 M/cumm HISTORICAL RESULTS Hgb 10.1(L) 12.1 - 15.1 g/dl HISTORICAL RESULTS Hct 30.0(L) 36.1 - 44.3 % HISTORICAL RESULTS MCV 87.2 80.0 - 97.6 fl HISTORICAL RESULTS MCH 29.3 26.7 - 33.7 pg HISTORICAL RESULTS MCHC 33.6 32.7 - 35.5 g/dl HISTORICAL RESULTS Rdw 15.5(H) 11.8 - 14.6 % HISTORICAL RESULTS Platelets 130(L) 140 - 440 K/cumm HISTORICAL RESULTS MPV 10.9(H) 6.8 - 10.4 fl HISTORICAL RESULTS Neutrophils 75.7(H) 38.7 - 74.5 % HISTORICAL RESULTS Lymphocytes 12.4(L) 20.0 - 54.3 % HISTORICAL RESULTS Monos 11.6 4.3 - 13.5 % HISTORICAL RESULTS Eosinophils 0.0 0.0 - 6.0 % HISTORICAL RESULTS Basophils 0.3 0.0 - 3.0 % HISTORICAL RESULTS Neutrophils, abs 5.6 1.8 - 6.6 K/cumm HISTORICAL RESULTS Lymphocytes, abs 0.9(L) 1.2 - 3.3 K/cumm HISTORICAL RESULTS Monocytes, absolute 0.9 0.2 - 1.2 K/cumm HISTORICAL RESULTS Eosinophils, abs 0.0 0.0 - 0.5 K/cumm HISTORICAL RESULTS Basophils, abs 0.0 0.0 - 0.2 K/cumm HISTORICAL RESULTS Blood specimen (specimen) 09/17/2012 12:01 AM CDT Historical Provider LAB BLOOD ORDERABLES Caitlyn l Result Performing Organization Address [facility] de Phone Number HISTORICAL RESULTS * Blood consistent result (09/17/2012 12:01 AM CDT) Consistent result Consistent with previous results HISTORICAL RESULTS Blood specimen (specimen) 09/17/2012 12:01 AM CDT Historical Provider LAB BLOOD ORDERABLES Caitlyn l Result Performing Organization Address [facility] Phone Number HISTORICAL RESULTS * Blood glucose, POC (09/16/2012 8:09 PM CDT) Glucose, POC, bld 132 65 - 199 mg/dl HISTORICAL RESULTS Blood specimen (specimen) 09/16/2012 8:09 PM CDT Result [facility] Irineo Reinoso MD LAB BLOOD ORDERABLES Final Re sult Performing Organization Address [facility] de Phone Number HISTORICAL RESULTS * Blood glucose, POC (09/16/2012 5:03 PM CDT) Glucose, POC, bld 107 65 - 199 mg/dl HISTORICAL RESULTS Blood specimen (specimen) 09/16/2012 5:03 PM CDT Irineo Reinoso MD LAB BLOOD ORDERABLES Final Re sult Performing Organization Address [facility] de Phone Number HISTORICAL RESULTS * Methicillin-resistant Staphylococcus aureus (MRSA) surveillance culture (09/16/2012 12:34 PM CDT) Nasal (Unknown) 09/16/2012 1 2:34 PM CDT 09/16/2012 1:27 PM CDT Impressions HISTORICAL RESULTS - 09/18/2012 1:38 PM CDT This test is for Infection Prevention surveillance; no charge to the patient. Narrative HISTORICAL RESULTS - 09/18/2012 1:38 PM CDT Negative Historical Provider LAB MICROBIOLOGY - GENERA L ORDERABLES Final Result Performing Organization Address [facility] de Phone Number HISTORICAL RESULTS * Blood glucose, POC (09/16/2012 11:31 AM CDT) Glucose, POC, bld 119 65 - 199 mg/dl HISTORICAL RESULTS Gluc, com 1, bld RN Notified HISTORICAL RESULTS Blood specimen (specimen) 09/16/2012 11:31 AM CDT Irineo Reinoso MD LAB BLOOD ORDERABLES Final Re sult Performing Organization Address [facility] de Phone Number HISTORICAL RESULTS * Blood potassium, mixed venous (09/16/2012 11:19 AM CDT) Potassium, bld 4.7 3.3 - 4.9 mmol/L HISTORICAL RESULTS Mixed venous blood 09/16/2012 11:19 AM CDT Historical Provider LAB BLOOD ORDERABLES Caitlyn l Result Performing Organization Address [facility] de Phone Number HISTORICAL RESULTS * Blood glucose, POC (09/16/2012 8:27 AM CDT) Glucose, POC, bld 139 65 - 199 mg/dl HISTORICAL RESULTS Blood specimen (specimen) 09/16/2012 8:27 AM CDT Irineo Reinoso MD LAB BLOOD ORDERABLES Final Re sult Performing Organization Address [facility] Co de Phone Number HISTORICAL RESULTS * Blood glucose, POC (09/16/2012 7:13 AM CDT) Glucose, POC, bld 87 65 - 199 mg/dl HISTORICAL RESULTS Blood specimen (specimen) 09/16/2012 7:13 AM CDT Irineo Reinoso MD LAB BLOOD ORDERABLES Final Re sult Performing Organization Address [facility] de Phone Number HISTORICAL RESULTS * Blood glucose, POC (09/16/2012 5:53 AM CDT) Pathologist [facility] Glucose, POC, bld 89 65 - 199 mg/dl HISTORICAL RESULTS Blood specimen (specimen) 09/16/2012 5:53 AM CDT Irineo Reinoso MD LAB BLOOD ORDERABLES Final Re sult Performing Organization Address [facility] de Phone Number HISTORICAL RESULTS * Blood ABO, Rh, indirect ab screen (09/16/2012 5:19 AM CDT) Pathologist [facility] ABO, Rho(D) B Negative HISTORI ИВАН RESULTS Cheri, indirect Negative HISTORICAL RESULTS Blood specimen (specimen) 09/16/2012 5:19 AM CDT [facility] Provider LAB BLOOD ORDERABLES Caitlyn l Result Performing Organization Address [facility] de Phone Number HISTORICAL RESULTS * (ABNORMAL) Blood cell count (CBC) (09/16/2012 5:15 AM CDT) Pathologist [facility] WBC 5.1 3.8 - 9.8 K/cumm HISTORICAL RESULTS RBC 3.40(L) 3.90 - 5.00 M/cumm HISTORICAL RESULTS Hgb 9.9(L) 12.1 - 15.1 g/dl HISTORICAL RESULTS Hct 29.4(L) 36.1 - 44.3 % HISTORICAL RESULTS MCV 86.4 80.0 - 97.6 fl HISTORICAL RESULTS MCH 29.1 26.7 - 33.7 pg HISTORICAL RESULTS MCHC 33.7 32.7 - 35.5 g/dl HISTORICAL RESULTS Rdw 14.6 11.8 - 14.6 % HISTORICAL RESULTS Platelets 110(L) 140 - 440 K/cumm HISTORICAL RESULTS MPV 10.4 6.8 - 10.4 fl HISTORICAL RESULTS Neutrophils 85.0(H) 38.7 - 74.5 % HISTORICAL RESULTS Lymphocytes 5.4(L) 20.0 - 54.3 % HISTORICAL RESULTS Monos 9.6 4.3 - 13.5 % HISTORICAL RESULTS Eosinophils 0.0 0.0 - 6.0 % HISTORICAL RESULTS Basophils 0.0 0.0 - 3.0 % HISTORICAL RESULTS Neutrophils, abs 4.4 1.8 - 6.6 K/cumm HISTORICAL RESULTS Lymphocytes, abs 0.3(L) 1.2 - 3.3 K/cumm HISTORICAL RESULTS Monocytes, absolute 0.5 0.2 - 1.2 K/cumm HISTORICAL RESULTS Eosinophils, abs 0.0 0.0 - 0.5 K/cumm HISTORICAL RESULTS Basophils, abs 0.0 0.0 - 0.2 K/cumm HISTORICAL RESULTS Blood specimen (specimen) 09/16/2012 5:15 AM CDT Historical Provider LAB BLOOD ORDERABLES Caitlyn l Result Performing Organization Address [facility] de Phone Number HISTORICAL RESULTS * Blood potassium, mixed venous (09/16/2012 5:15 AM CDT) Pathologist [facility] Potassium, bld 4.6 3.3 - 4.9 mmol/L HISTORICAL RESULTS Mixed venous blood 09/16/2012 5:15 AM CDT Historical Provider LAB BLOOD ORDERABLES Caitlyn l Result Performing Organization Address [facility] de Phone Number HISTORICAL RESULTS * Blood glucose, POC (09/16/2012 3:56 AM CDT) Glucose, POC, bld 109 65 - 199 mg/dl HISTORICAL RESULTS Blood specimen (specimen) 09/16/2012 3:56 AM CDT Result [facility] Irineo Reinoso MD LAB BLOOD ORDERABLES Final Re sult Performing Organization Address [facility] de Phone Number HISTORICAL RESULTS * Blood glucose, POC (09/16/2012 2:08 AM CDT) Glucose, POC, bld 140 65 - 199 mg/dl HISTORICAL RESULTS Blood specimen (specimen) 09/16/2012 2:08 AM CDT us Irineo Reinoso MD LAB BLOOD ORDERABLES Final Re sult HISTORICAL RESULTS * All Microbiology Report Section (09/16/2012 12:00 AM CDT) 09/16/2012 Narrative HISTORICAL RESULTS - 09/18/2012 3:21 PM CDT ? [facility] ?[address] [facility] [place] ?[place], [place] [address] ? Patient Name: ??JAMES CUEVA ? Med Rec Number: [id number] ? Fin Number: ?[id number] ? Date: ?1945 ? Sex/Age: ? Female 67 years ? Admit Date: ?09/04/2012 ? Discharge Date: ? Doctor: ?[facility] , 1302 ? Facility: ?[facility] ? Location: ?[id number] ?* Abnormal ??A Alert ??f Footnote ??^ Corrected ??L Low ??H High ?i Interp Data ??@ Ref Lab ? Chart Type:Cumulative ?* * * * MICROBIOLOGY - MISCELLANEOUS * * * * ?PROCEDURE: MRSA Surveillance Culture ? SOURCE: Nasal ? COLLECTED: 04/03/13 ??1234 ?BODY SITE: ? STARTED: 04/03/13 ??1327 ? FREE TEXT SOURCE: ? FINAL REPORT ? REPORTED: 04/05/13 1338 ? Negative ?* * * ??Interpretive Results ??* * * ? (1)This test is for Infection Prevention surveillance; no charge to ? the patient. ? Result [facility] Historical Provider LAB MICROBIOLOGY - GENERA L ORDERABLES Final Result Performing Organization Address [facility] de Phone Number HISTORICAL RESULTS * Blood glucose, POC (09/15/2012 11:45 PM CDT) [facility] Glucose, POC, bld 130 65 - 199 mg/dl HISTORICAL RESULTS Blood specimen (specimen) 09/15/2012 11:45 PM CDT Result [facility] Irineo Reinoso MD LAB BLOOD ORDERABLES Final Re sult Performing Organization Address [facility] de Phone Number HISTORICAL RESULTS * Blood potassium, mixed venous (09/15/2012 11:14 PM CDT) [facility] Potassium, bld 3.5 3.3 - 4.9 mmol/L HISTORICAL RESULTS Mixed venous blood 09/15/2012 11:14 PM CDT Result [facility] Historical Provider LAB BLOOD ORDERABLES Caitlyn l Result Performing Organization Address [facility] de Phone Number HISTORICAL RESULTS * (ABNORMAL) Blood gas, arterial (09/15/2012 11:14 PM CDT) [facility] Ph, art 7.37 7.35 - 7.45 HISTORICAL RESULTS PCO2 39 35 - 45 mm Hg HISTORICAL RESULTS PO2, art 155(H) 80 - 105 mm Hg HISTORICAL RESULTS CO2, calc, art 23 21 - 30 mmol/L HISTORICAL RESULTS A-a gradient Not Applicable mm Hg HI STORICAL RESULTS O2, inspired, %, art Not Applicable % HISTORICAL RESULTS Oxygen (O2), inspired fraction (FiO2) Not Applicable liters HISTORICAL RESULTS Arterial blood 09/15/2012 11 :14 PM CDT Result [facility] Historical Provider LAB BLOOD ORDERABLES Caitlyn l Result Performing Organization Address [facility] de Phone Number HISTORICAL RESULTS * (ABNORMAL) Blood hemoglobin saturation (09/15/2012 11:00 PM CDT) [facility] Hgb estimated, main pulmonary a 9.2(L) 12.1 - 15.1 g/dl HISTORICAL RESULTS OxyHb, main pulmonary a 77.2 % HISTORICAL RESULTS COHb, main pulmonary a 1.9 % HISTORICAL RESULTS MetHb, main pulmonary a 1.9 % HISTORICAL RESULTS O2 content, pulmonary a 10.0 volume % O2 HISTORICAL RESULTS Blood specimen (specimen) 09/15/2012 11:00 PM CDT Result [facility] Provider LAB BLOOD ORDERABLES Caitlyn l Result Performing Organization Address [facility] Phone Number HISTORICAL RESULTS * Plasma phosphorus (09/15/2012 9:45 PM CDT) Phosphorus, pl 2.5 2.3 - 4.3 mg/dl HISTORICAL RESULTS Plasma 09/15/2012 9:45 PM CDT Result [facility] Provider LAB BLOOD ORDERABLES Caitlyn l Result Performing Organization Address [facility] Phone Number HISTORICAL RESULTS * (ABNORMAL) Serum magnesium (09/15/2012 9:45 PM CDT) Magnesium 3.1(H) 1.4 - 2.5 mg/dl HISTORICAL RESULTS Serum 09/15/2012 9:45 PM CDT Result [facility] Provider LAB BLOOD ORDERABLES Caitlyn l Result Performing Organization Address [facility] de Phone Number HISTORICAL RESULTS * Blood potassium, mixed venous (09/15/2012 9:45 PM CDT) Potassium, bld 3.4 3.3 - 4.9 mmol/L HISTORICAL RESULTS Mixed venous blood 09/15/2012 9:45 PM CDT Result [facility] Historical Provider LAB BLOOD ORDERABLES Caitlyn l Result Performing Organization Address [facility] de Phone Number HISTORICAL RESULTS * (ABNORMAL) Plasma basic metabolic panel (09/15/2012 9:45 PM CDT) BUN 13 8 - 25 mg/dl HISTORICAL RESULTS Sodium 142 135 - 145 mmol/L HISTORICAL RESULTS Creatinine 0.63 0.60 - 1.10 mg/dl HISTORICAL RESULTS K, pl 3.6 3.3 - 4.9 mmol/L HISTORICAL RESULTS Calcium 8.5(L) 8.6 - 10.3 mg/dl HISTORICAL RESULTS Chloride 111(H) 97 - 110 mmol/L HISTORICAL RESULTS CO2 20(L) 22 - 32 mmol/L HISTORICAL RESULTS A. gap 11 0 - 16 mmol/L HISTORICAL RESULTS Glucose 193 65 - 199 mg/dl HISTORICAL RESULTS Plasma 09/15/2012 9:45 PM CDT Historical Provider LAB BLOOD ORDERABLES Caitlyn l Result HISTORICAL RESULTS * (ABNORMAL) Blood glucose, POC (09/15/2012 9:27 PM CDT) Glucose, POC, bld 213(H) 65 - 199 mg/dl HISTORICAL RESULTS Blood specimen (specimen) 09/15/2012 9:27 PM CDT Irineo Reinoso MD LAB BLOOD ORDERABLES Final Re sult HISTORICAL RESULTS * Methicillin-resistant Staphylococcus aureus (MRSA) surveillance culture (09/15/2012 9:19 PM CDT) Nasal (Unknown) 09/15/2012 9 :19 PM CDT 09/15/2012 10:34 PM CDT Impressions HISTORICAL RESULTS - 09/17/2012 1:27 PM CDT This test is for Infection Prevention surveillance; no charge to the patient. Narrative HISTORICAL RESULTS - 09/17/2012 1:27 PM CDT Negative Historical Provider LAB MICROBIOLOGY - GENERA L ORDERABLES Final Result Performing Organization Address [facility] Co de Phone Number HISTORICAL RESULTS * Plasma partial thromboplastin time (PTT) (09/15/2012 9:10 PM CDT) APTT 30.6 25.0 - 37.0 seconds HISTORICAL RESULTS Comment: Interpretive Data Therapeutic heparin range:60.0 - 94.0 sec based on correlation with therapeutic heparin activity range of 0.3 -0.7 Units/mL. Current interpretive data was last revised on 2011. Plasma 09/15/2012 9:10 PM CDT Historical Provider LAB BLOOD ORDERABLES Caitlyn l Result HISTORICAL RESULTS * (ABNORMAL) Plasma prothrombin time (PT) (09/15/2012 9:10 PM CDT) Prothrombin time (PT) 14.7(H) 9.0 - 12.0 seconds HISTORICAL RESULTS INR 1.42(H) 0.90 - 1.20 HISTORIC AL RESULTS Comment: Interpretive Data Inpatient therapeutic ranges* Atrial fibrillation ?2.0-3.0 INR Venous thrombo-embolism ?2.0-3.0 INR Bioprosthetic heart valve ?* Mechanical heart valve, bileaflet or tilting disk,aortic position ? 2.0-3.0 INR All other,or bileaflet or tilting disk, in mitral position ? 2.5-3.5 INR *See the pharmacy resource directory (PHRED) for an updated copy of the Tool Book at http://[email or web address].[email or web address].nsf Current Interpretive Data was last revised 2011. Plasma 09/15/2012 9:10 PM CDT us Historical Provider LAB BLOOD ORDERABLES Caitlyn l Result HISTORICAL RESULTS * (ABNORMAL) Blood cell count [CBC] express (09/15/2012 9:10 PM CDT) WBC 8.9 3.8 - 9.8 K/cumm HISTORICAL RESULTS RBC 3.18(L) 3.90 - 5.00 M/cumm HISTORICAL RESULTS Hgb 9.7(L) 12.1 - 15.1 g/dl HISTORICAL RESULTS Hct 28.5(L) 36.1 - 44.3 % HISTORICAL RESULTS MCV 89.6 80.0 - 97.6 fl HISTORICAL RESULTS MCH 30.5 26.7 - 33.7 pg HISTORICAL RESULTS MCHC 34.1 32.7 - 35.5 g/dl HISTORICAL RESULTS Rdw 12.6 11.8 - 14.6 % HISTORICAL RESULTS Platelets 123(L) 140 - 440 K/cumm HISTORICAL RESULTS Comment:{No clot detected in sample.} MPV 9.9 6.8 - 10.4 fl HISTORICAL RESULTS Blood specimen (specimen) 09/15/2012 9:10 PM CDT Historical Provider LAB BLOOD ORDERABLES Caitlyn dominguez Result HISTORICAL RESULTS * XR Chest 1 View (09/15/2012 9:10 PM CDT) Anatomical Region Laterality Modality Body, Chest N/A Radiographic Salima ging 09/15/2012 9:10 PM CDT Narrative 09/16/2012 4:54 AM CDT LEYDA COSBY M.D. FINAL REPORT ACC# ??Date Time ??Exam [id number] Sep 15, 2012 21:10:00 [id number] Chest 1 view Frontal EXAMINATION: ?SINGLE VIEW ANTEROPOSTERIOR CHEST IMPRESSION: ?Comparison is made to prior study of September 13, 2012 at 12:51. Patient is post median sternotomy. [place] catheter ends at the level of the main pulmonary artery and a right internal jugular catheter seen with the tip ending at the junction of the superior vena cava/right atrium. Mediastinal drain is noted. Left chest tube is seen with a tiny left pleural effusion and basilar atelectasis but no pneumothorax. No right pleural effusion or pneumothorax is seen. Epicardial pacemaker wires are again seen. The heart size and mediastinal contour are unchanged. Requested By: WENDY PRUITT M.D. Dictated By: ?? LEYDA COSBY M.D. ??on Sep ??3 2012 ??4:54A This document has been electronically signed by: LEYDA COSBY M.D. on Sep ??3 2012 ??4:54A Procedure Note Provider, Fidel, - 10/12/2016 LEYDA COSBY M.D. FINAL REPORT ACC# Date Time Exam [id number] Sep 15, 2012 21:10:00 [id number] Chest 1 view Frontal EXAMINATION: SINGLE VIEW ANTEROPOSTERIOR CHEST IMPRESSION: Comparison is made to prior study of September 13, 2012 at 12:51. Patient is post median sternotomy. [place] catheter ends at the level of the main pulmonary artery and a right internal jugular catheter seen with the tip ending at the junction of the superior vena cava/right atrium. Mediastinal drain is noted. Left chest tube is seen with a tiny left pleural effusion and basilar atelectasis but no pneumothorax. No right pleural effusion or pneumothorax is seen. Epicardial pacemaker wires are again seen. The heart size and mediastinal contour are unchanged. Requested By: WENDY PRUITT M.D. Dictated By: LEYDA COSBY M.D. on Sep 16 2012 4:54A This document has been electronically signed by: LEYDA COSBY M.D. on Sep 16 2012 4:54A us Historical Provider IMG XR PROCEDURES Final R esult * (ABNORMAL) Blood gas, point of care, arterial (09/15/2012 7:53 PM CDT) Ph, art 7.34(L) 7.35 - 7.45 HISTORICAL RESULTS PCO2 42 35 - 45 mm Hg HISTORICAL RESULTS PO2, art 200(H) 80 - 105 mm Hg HISTORICAL RESULTS Sodium, bld 141 135 - 145 mmol/L HISTORICAL RESULTS Potassium, bld 4.0 3.3 - 4.9 mmol/L HISTORICAL RESULTS Ca, ionized, bld 5.25(H) 4.50 - 5.10 mg/dl HISTORICAL RESULTS Hct 23.0(L) 36.1 - 44.3 % HISTORICAL RESULTS Glu, art 223(H) 65 - 199 mg/dl HISTORICAL RESULTS HCO3, art 23 18 - 28 mmol/L HISTORICAL RESULTS CO2, calc, art 24 20 - 30 mmol/L HISTORICAL RESULTS BE, art -2.9 mmol/L HISTORICAL RESULTS O2 sat, art 100(H) 95 - 98 % HISTORIC AL RESULTS Arterial blood 09/15/2012 7: 53 PM CDT Irineo Reinoso MD LAB BLOOD ORDERABLES Final Re sult Performing Organization Address [facility] Co de Phone Number HISTORICAL RESULTS * (ABNORMAL) Blood prothrombin time (PT) (09/15/2012 7:51 PM CDT) PT 23.8(H) 12.1 - 17.0 seconds HISTORICAL RESULTS INR 1.8(H) 1.0 - 1.3 HISTORICAL RESULTS Blood specimen (specimen) 09/15/2012 7:51 PM CDT Irineo Reinoso MD LAB BLOOD ORDERABLES Final Re sult Performing Organization Address [facility] de Phone Number HISTORICAL RESULTS * Blood partial thromboplastin time (PTT) (09/15/2012 7:51 PM CDT) PTT 30.8 29.3 - 45.4 seconds HISTORICAL RESULTS Blood specimen (specimen) 09/15/2012 7:51 PM CDT Irineo Reinoso MD LAB BLOOD ORDERABLES Final Re sult Performing Organization Address [facility] Co de Phone Number HISTORICAL RESULTS * (ABNORMAL) Blood platelet, hematocrit Point of Care (09/15/2012 7:51 PM CDT) Hct 23.5(L) 36.1 - 44.3 % HISTORICAL RESULTS Platelets 156 140 - 440 K/cumm HISTORICAL RESULTS Blood specimen (specimen) 09/15/2012 7:51 PM CDT Irineo Reinoso MD LAB BLOOD ORDERABLES Final Re sult Performing Organization Address [facility]/ZIP Co de Phone Number HISTORICAL RESULTS * Blood heparin/activated clotting time (ACT) (09/15/2012 7:50 PM CDT) Heparin, POC 0.0 Units/ml HISTORI ИВАН RESULTS Coagulation time, activated, POC 142 112 - 174 seconds HISTORICAL RESULTS Blood specimen (specimen) 09/15/2012 7:50 PM CDT Irineo Reinoso MD LAB BLOOD ORDERABLES Final Re sult Performing Organization Address [facility] de Phone Number HISTORICAL RESULTS * (ABNORMAL) Blood gas, point of care, arterial (09/15/2012 6:52 PM CDT) Ph, art 7.48(H) 7.35 - 7.45 HISTORICAL RESULTS PCO2 38 35 - 45 mm Hg HISTORICAL RESULTS PO2, art 318(H) 80 - 105 mm Hg HISTORICAL RESULTS Sodium, bld 143 135 - 145 mmol/L HISTORICAL RESULTS Potassium, bld 4.9 3.3 - 4.9 mmol/L HISTORICAL RESULTS Ca, ionized, bld 4.29(L) 4.50 - 5.10 mg/dl HISTORICAL RESULTS Hct 20.0(L) 36.1 - 44.3 % HISTORICAL RESULTS Glu, art 243(H) 65 - 199 mg/dl HISTORICAL RESULTS HCO3, art 28 18 - 28 mmol/L HISTORICAL RESULTS CO2, calc, art 30 20 - 30 mmol/L HISTORICAL RESULTS BE, art 4.4 mmol/L HISTORICAL RESULTS O2 sat, art 100(H) 95 - 98 % HISTORIC AL RESULTS Arterial blood 09/15/2012 6: 52 PM CDT Result [facility] Irineo Reinoso MD LAB BLOOD ORDERABLES Final Re sult Performing Organization Address [facility] Co de Phone Number HISTORICAL RESULTS * (ABNORMAL) Blood gas, point of care, arterial (09/15/2012 6:24 PM CDT) Ph, art 7.38 7.35 - 7.45 HISTORICAL RESULTS PCO2 32(L) 35 - 45 mm Hg HISTORICAL RESULTS PO2, art 502(H) 80 - 105 mm Hg HISTORICAL RESULTS Sodium, bld 137 135 - 145 mmol/L HISTORICAL RESULTS Potassium, bld 5.1(H) 3.3 - 4.9 mmol/L HISTORICAL RESULTS Ca, ionized, bld 4.57 4.50 - 5.10 mg/dl HISTORICAL RESULTS Hct 18.0(L) 36.1 - 44.3 % HISTORICAL RESULTS Glu, art 227(H) 65 - 199 mg/dl HISTORICAL RESULTS HCO3, art 19 18 - 28 mmol/L HISTORICAL RESULTS CO2, calc, art 20 20 - 30 mmol/L HISTORICAL RESULTS BE, art -5.7 mmol/L HISTORICAL RESULTS O2 sat, art 100(H) 95 - 98 % HISTORIC AL RESULTS Arterial blood 09/15/2012 6: 24 PM CDT Result [facility] Irineo Reinoso MD LAB BLOOD ORDERABLES Final Re sult Performing Organization Address [facility] de Phone Number HISTORICAL RESULTS * (ABNORMAL) Blood heparin/activated clotting time (ACT) (09/15/2012 6:22 PM CDT) Heparin, POC 4.1 Units/ml HISTORI ИВАН RESULTS Coagulation time, activated, POC 599(H) 112 - 174 seconds HISTORICAL RESULTS Blood specimen (specimen) 09/15/2012 6:22 PM CDT Result [facility] Irineo Reinoso MD LAB BLOOD ORDERABLES Final Re sult Performing Organization Address City/[facility] Co de Phone Number HISTORICAL RESULTS * (ABNORMAL) Blood heparin/activated clotting time (ACT) (09/15/2012 5:22 PM CDT) Heparin, POC >4.7 Units/ml HISTORI ИВАН RESULTS Coagulation time, activated, POC 645(H) 112 - 174 seconds HISTORICAL RESULTS Blood specimen (specimen) 09/15/2012 5:22 PM CDT Result [facility] Irineo Reinoso MD LAB BLOOD ORDERABLES Final Re sult Performing Organization Address [facility] Co de Phone Number HISTORICAL RESULTS * (ABNORMAL) Blood gas, point of care, arterial (09/15/2012 3:50 PM CDT) Ph, art 7.44 7.35 - 7.45 HISTORICAL RESULTS PCO2 33(L) 35 - 45 mm Hg HISTORICAL RESULTS PO2, art 525(H) 80 - 105 mm Hg HISTORICAL RESULTS Sodium, bld 142 135 - 145 mmol/L HISTORICAL RESULTS Potassium, bld 3.9 3.3 - 4.9 mmol/L HISTORICAL RESULTS Ca, ionized, bld 5.09 4.50 - 5.10 mg/dl HISTORICAL RESULTS Hct 31.0(L) 36.1 - 44.3 % HISTORICAL RESULTS Glu, art 93 65 - 199 mg/dl HISTORICAL RESULTS HCO3, art 22 18 - 28 mmol/L HISTORICAL RESULTS CO2, calc, art 23 20 - 30 mmol/L HISTORICAL RESULTS BE, art -1.3 mmol/L HISTORICAL RESULTS O2 sat, art 100(H) 95 - 98 % HISTORIC AL RESULTS Arterial blood 09/15/2012 3: 50 PM CDT us Jeimy Laws LAB BLOOD ORDERABLES Final Resul t Performing Organization Address [facility] de Phone Number HISTORICAL RESULTS * Blood heparin dose response (09/15/2012 3:45 PM CDT) Coagulation time, activated, POC 144 112 - 174 seconds HISTORICAL RESULTS Heparin dose response slope, POC 100 60 - 195 HISTORICAL RESULTS Projected heparin concentration, POC 3.4 Units/ml HISTORICAL RESULTS Blood specimen (specimen) 09/15/2012 3:45 PM CDT us Irineo Reinoso MD LAB BLOOD ORDERABLES Final Re sult Performing Organization Address [facility] Co de Phone Number HISTORICAL RESULTS * Plasma basic metabolic panel (09/15/2012 5:12 AM CDT) Sodium 140 135 - 145 mmol/L HISTORICAL RESULTS K, pl 4.2 3.3 - 4.9 mmol/L HISTORICAL RESULTS Chloride 108 97 - 110 mmol/L HISTORICAL RESULTS CO2 24 22 - 32 mmol/L HISTORICAL RESULTS A. gap 8 0 - 16 mmol/L HISTORICAL RESULTS Glucose 97 65 - 199 mg/dl HISTORICAL RESULTS BUN 11 8 - 25 mg/dl HISTORICAL RESULTS Creatinine 0.72 0.60 - 1.10 mg/dl HISTORICAL RESULTS Calcium 9.4 8.6 - 10.3 mg/dl HISTORICAL RESULTS Plasma 09/15/2012 5:12 AM CDT [facility] [employer] LAB BLOOD ORDERABLES Final Result Performing Organization Address [facility] de Phone Number HISTORICAL RESULTS * Serum magnesium (09/15/2012 5:12 AM CDT) Pathologist [facility] Magnesium 2.1 1.4 - 2.5 mg/dl HISTORICAL RESULTS Serum 09/15/2012 5:12 AM CDT [employer] LAB BLOOD ORDERABLES Final Result Performing Organization Address [facility] de Phone Number HISTORICAL RESULTS * (ABNORMAL) Blood cell count (CBC) (09/15/2012 5:12 AM CDT) WBC 4.5 3.8 - 9.8 K/cumm HISTORICAL RESULTS RBC 3.29(L) 3.90 - 5.00 M/cumm HISTORICAL RESULTS Hgb 9.9(L) 12.1 - 15.1 g/dl HISTORICAL RESULTS Hct 29.6(L) 36.1 - 44.3 % HISTORICAL RESULTS MCV 90.0 80.0 - 97.6 fl HISTORICAL RESULTS MCH 30.1 26.7 - 33.7 pg HISTORICAL RESULTS MCHC 33.4 32.7 - 35.5 g/dl HISTORICAL RESULTS Rdw 12.5 11.8 - 14.6 % HISTORICAL RESULTS Platelets 220 140 - 440 K/cumm HISTORICAL RESULTS MPV 10.4 6.8 - 10.4 fl HISTORICAL RESULTS Neutrophils 52.1 38.7 - 74.5 % HISTORICAL RESULTS Lymphocytes 31.8 20.0 - 54.3 % HISTORICAL RESULTS Monos 13.9(H) 4.3 - 13.5 % HISTORICAL RESULTS Eosinophils 1.1 0.0 - 6.0 % HISTORICAL RESULTS Basophils 1.1 0.0 - 3.0 % HISTORICAL RESULTS Neutrophils, abs 2.3 1.8 - 6.6 K/cumm HISTORICAL RESULTS Lymphocytes, abs 1.4 1.2 - 3.3 K/cumm HISTORICAL RESULTS Monocytes, absolute 0.6 0.2 - 1.2 K/cumm HISTORICAL RESULTS Eosinophils, abs 0.0 0.0 - 0.5 K/cumm HISTORICAL RESULTS Basophils, abs 0.0 0.0 - 0.2 K/cumm HISTORICAL RESULTS Blood specimen (specimen) 09/15/2012 5:12 AM CDT Gini Cespedes LAB BLOOD ORDERABLES Final Result HISTORICAL RESULTS * All Microbiology Report Section (09/15/2012 12:00 AM CDT) 09/15/2012 Narrative HISTORICAL RESULTS - 09/18/2012 3:21 PM CDT ? [facility] ?[address] [facility] [place] ?[place], [place] [address] ? Patient Name: ??JAMES CUEVA ? Med Rec Number: [id number] ? Fin Number: ?[id number] ? Date: ?1945 ? Sex/Age: ? Female 67 years ? Admit Date: ?09/04/2012 ? Discharge Date: ? Doctor: ?MEDICINE , 1302 ? Facility: ?[facility] ? Location: ?[id number] ?* Abnormal ??A Alert ??f Footnote ??^ Corrected ??L Low ??H High ?i Interp Data ??@ Ref Lab ? Chart Type:Cumulative ?* * * * MICROBIOLOGY - MISCELLANEOUS * * * * ?PROCEDURE: MRSA Surveillance Culture ? SOURCE: Nasal ? COLLECTED: 04/02/13 ??2119 ?BODY SITE: ? STARTED: 04/02/13 ??2234 ? FREE TEXT SOURCE: ? FINAL REPORT ? REPORTED: 09/17/12 1327 ? Negative ? ORDER COMMENTS ? (1)Specimen received on an aerobic culturette. ?* * * ??Interpretive Results ??* * * ? (1)This test is for Infection Prevention surveillance; no charge to ? the patient. ? Historical Provider MD LAB MICROBIOLOGY - GENERA L ORDERABLES Final Result Performing Organization Address [facility] de Phone Number HISTORICAL RESULTS * Plasma partial thromboplastin time (PTT) (09/14/2012 10:10 PM CDT) APTT 36.2 25.0 - 37.0 seconds HISTORICAL RESULTS Comment: Interpretive Data Therapeutic heparin range:60.0 - 94.0 sec based on correlation with therapeutic heparin activity range of 0.3 -0.7 Units/mL. Current interpretive data was last revised on 2011. Plasma 09/14/2012 10:1 0 PM CDT Historical Provider MD LAB BLOOD ORDERABLES Caitlyn l Result Performing Organization Address [facility] de Phone Number HISTORICAL RESULTS * Plasma prothrombin time (PT) (09/14/2012 10:10 PM CDT) Prothrombin time (PT) 12.0 9.0 - 12.0 seconds HISTORICAL RESULTS INR 1.17 0.90 - 1.20 HISTORIC AL RESULTS Comment: Interpretive Data Inpatient therapeutic ranges* Atrial fibrillation ?2.0-3.0 INR Venous thrombo-embolism ?2.0-3.0 INR Bioprosthetic heart valve ?* Mechanical heart valve, bileaflet or tilting disk,aortic position ? 2.0-3.0 INR All other,or bileaflet or tilting disk, in mitral position ? 2.5-3.5 INR *See the pharmacy resource directory (PHRED) for an updated copy of the Tool Book at [email or web address]/[email or web address].nsf Current Interpretive Data was last revised 2011. Plasma 09/14/2012 10:1 0 PM CDT Result [facility] Provider MD LAB BLOOD ORDERABLES Caitlyn l Result Performing Organization Address [facility] de Phone Number HISTORICAL RESULTS * Blood check sample (09/14/2012 10:10 PM CDT) ABO, Rho(D) B Negative HISTORI ИВАН RESULTS Blood specimen (specimen) 09/14/2012 10:10 PM CDT Result [facility] Provider MD LAB BLOOD ORDERABLES Caitlyn l Result Performing Organization Address [facility] de Phone Number HISTORICAL RESULTS * (ABNORMAL) Plasma partial thromboplastin time (PTT) (09/14/2012 2:36 PM CDT) APTT 60.9(H) 25.0 - 37.0 seconds HISTORICAL RESULTS Comment: Interpretive Data Therapeutic heparin range:60.0 - 94.0 sec based on correlation with therapeutic heparin activity range of 0.3 -0.7 Units/mL. Current interpretive data was last revised on 2011. Plasma 09/14/2012 2:36 PM CDT Result [facility] Provider MD LAB BLOOD ORDERABLES Caitlyn l Result Performing Organization Address [facility] de Phone Number HISTORICAL RESULTS * Blood ABO, Rh, indirect ab screen (09/14/2012 2:36 PM CDT) ABO, Rho(D) B Negative HISTORI ИВАН RESULTS Cheri, indirect Negative HISTORICAL RESULTS Blood specimen (specimen) 09/14/2012 2:36 PM CDT Historical Provider LAB BLOOD ORDERABLES Caitlyn dominguez Result Performing Organization Address [facility] de Phone Number HISTORICAL RESULTS * (ABNORMAL) Blood cell count [CBC] express (09/14/2012 2:36 PM CDT) WBC 5.2 3.8 - 9.8 K/cumm HISTORICAL RESULTS RBC 3.44(L) 3.90 - 5.00 M/cumm HISTORICAL RESULTS Hgb 10.3(L) 12.1 - 15.1 g/dl HISTORICAL RESULTS Hct 30.8(L) 36.1 - 44.3 % HISTORICAL RESULTS MCV 89.7 80.0 - 97.6 fl HISTORICAL RESULTS MCH 29.8 26.7 - 33.7 pg HISTORICAL RESULTS MCHC 33.2 32.7 - 35.5 g/dl HISTORICAL RESULTS Rdw 12.7 11.8 - 14.6 % HISTORICAL RESULTS Platelets 218 140 - 440 K/cumm HISTORICAL RESULTS MPV 10.8(H) 6.8 - 10.4 fl HISTORICAL RESULTS Blood specimen (specimen) 09/14/2012 2:36 PM CDT Result [facility] Provider LAB BLOOD ORDERABLES Caitlyn dominguez Result Performing Organization Address [facility] de Phone Number HISTORICAL RESULTS * Urinalysis (09/14/2012 9:41 AM CDT) Color, ur Light-Yellow Yellow HISTORI ИВАН RESULTS Clarity, ur Clear Clear HISTORIC AL RESULTS Specific gravity, ur 1.009 1.003 - 1.030 HISTORICAL RESULTS pH, ur 6.0 5.0 - 8.0 HISTORICAL RESULTS Protein, ur Negative Trace HISTORIC AL RESULTS Glucose, ur Negative Negative HISTORIC AL RESULTS Ketones, ur Negative Negative HISTORIC AL RESULTS Bilirubin, ur Negative Negative HISTOR ICAL RESULTS U Blood Negative Negative HISTORICAL RESULTS Urobilinogen, quant, ur <2.0 0.0 - 2.0 mg/dl HISTORICAL RESULTS Nitrites, ur Negative Negative HISTORI ИВАН RESULTS Leukocyte esterase, ur Negative Negative HISTORICAL RESULTS Urine 09/14/2012 9:41 AM CDT Narrative HISTORICAL RESULTS - 09/14/2012 11:34 AM CDT {Ordered per Diana Haque RN. 09/14/2012 16:31:36 CDT ep} Jeimy Laws LAB BLOOD ORDERABLES Final Resul t HISTORICAL RESULTS * (ABNORMAL) Plasma comprehensive metabolic panel (09/14/2012 1:41 AM CDT) Sodium 140 135 - 145 mmol/L HISTORICAL RESULTS K, pl 3.8 3.3 - 4.9 mmol/L HISTORICAL RESULTS Chloride 107 97 - 110 mmol/L HISTORICAL RESULTS CO2 23 22 - 32 mmol/L HISTORICAL RESULTS A. gap 10 0 - 16 mmol/L HISTORICAL RESULTS Glucose 100 65 - 199 mg/dl HISTORICAL RESULTS BUN 14 8 - 25 mg/dl HISTORICAL RESULTS Creatinine 0.75 0.60 - 1.10 mg/dl HISTORICAL RESULTS Calcium 9.8 8.6 - 10.3 mg/dl HISTORICAL RESULTS Protein, pl 6.8 6.5 - 8.5 g/dl HISTORICAL RESULTS Alb 3.5(L) 3.6 - 5.0 g/dl HISTORICAL RESULTS Bilirubin 0.7 0.3 - 1.1 mg/dl HISTORICAL RESULTS Alk phos 79 38 - 126 Units/L HISTORICAL RESULTS AST 13 11 - 47 Units/L HISTORICAL RESULTS ALT 33 7 - 53 Units/L HISTORICAL RESULTS Plasma 09/14/2012 1:41 AM CDT us Historical Provider LAB BLOOD ORDERABLES Caitlyn l Result HISTORICAL RESULTS * (ABNORMAL) Plasma partial thromboplastin time (PTT) (09/14/2012 1:41 AM CDT) APTT 67.9(H) 25.0 - 37.0 seconds HISTORICAL RESULTS Comment: Interpretive Data Therapeutic heparin range:60.0 - 94.0 sec based on correlation with therapeutic heparin activity range of 0.3 -0.7 Units/mL. Current interpretive data was last revised on 2011. Plasma 09/14/2012 1:41 AM CDT Historical Provider LAB BLOOD ORDERABLES Caitlyn l Result Performing Organization Address [facility] Co de Phone Number HISTORICAL RESULTS * Plasma phosphorus (09/14/2012 1:41 AM CDT) Phosphorus, pl 3.2 2.3 - 4.3 mg/dl HISTORICAL RESULTS Plasma 09/14/2012 1:41 AM CDT Result [facility] Historical Provider LAB BLOOD ORDERABLES Caitlyn l Result Performing Organization Address [facility] de Phone Number HISTORICAL RESULTS * Serum magnesium (09/14/2012 1:41 AM CDT) Magnesium 1.8 1.4 - 2.5 mg/dl HISTORICAL RESULTS Serum 09/14/2012 1:41 AM CDT Result [facility] Provider LAB BLOOD ORDERABLES Caitlyn l Result Performing Organization Address [facility] de Phone Number HISTORICAL RESULTS * (ABNORMAL) Blood cell count (CBC) (09/14/2012 1:41 AM CDT) WBC 6.4 3.8 - 9.8 K/cumm HISTORICAL RESULTS RBC 3.53(L) 3.90 - 5.00 M/cumm HISTORICAL RESULTS Hgb 10.6(L) 12.1 - 15.1 g/dl HISTORICAL RESULTS Hct 31.9(L) 36.1 - 44.3 % HISTORICAL RESULTS MCV 90.6 80.0 - 97.6 fl HISTORICAL RESULTS MCH 30.0 26.7 - 33.7 pg HISTORICAL RESULTS MCHC 33.2 32.7 - 35.5 g/dl HISTORICAL RESULTS Rdw 12.3 11.8 - 14.6 % HISTORICAL RESULTS Platelets 227 140 - 440 K/cumm HISTORICAL RESULTS MPV 10.2 6.8 - 10.4 fl HISTORICAL RESULTS Neutrophils 63.5 38.7 - 74.5 % HISTORICAL RESULTS Lymphocytes 22.3 20.0 - 54.3 % HISTORICAL RESULTS Monos 12.7 4.3 - 13.5 % HISTORICAL RESULTS Eosinophils 0.9 0.0 - 6.0 % HISTORICAL RESULTS Basophils 0.6 0.0 - 3.0 % HISTORICAL RESULTS Neutrophils, abs 4.1 1.8 - 6.6 K/cumm HISTORICAL RESULTS Lymphocytes, abs 1.4 1.2 - 3.3 K/cumm HISTORICAL RESULTS Monocytes, absolute 0.8 0.2 - 1.2 K/cumm HISTORICAL RESULTS Eosinophils, abs 0.1 0.0 - 0.5 K/cumm HISTORICAL RESULTS Basophils, abs 0.0 0.0 - 0.2 K/cumm HISTORICAL RESULTS Blood specimen (specimen) 09/14/2012 1:41 AM CDT Historical Provider LAB BLOOD ORDERABLES Caitlyn l Result Performing Organization Address [facility] de Phone Number HISTORICAL RESULTS * (ABNORMAL) Plasma partial thromboplastin time (PTT) (09/13/2012 2:25 PM CDT) APTT 68.3(H) 25.0 - 37.0 seconds HISTORICAL RESULTS Comment: Interpretive Data Therapeutic heparin range:60.0 - 94.0 sec based on correlation with therapeutic heparin activity range of 0.3 -0.7 Units/mL. Current interpretive data was last revised on 2011. Plasma 09/13/2012 2:25 PM CDT Historical Provider LAB BLOOD ORDERABLES Caitlyn l Result Performing Organization Address [facility] Co de Phone Number HISTORICAL RESULTS * CHEST RADIOGRAPHY, FRONTAL (AP), LATERAL (09/13/2012 12:55 PM CDT) Anatomical Region Laterality Modality N/A Radiographic Salima ging 09/13/2012 12:5 5 PM CDT Narrative 09/14/2012 11:24 AM CDT DIONY MAHONEY M.D. AALIYAH RUIZ, FINAL REPORT The radiology attending physician has personally reviewed this study, and has reviewed and/or edited this written report and agrees with it. ACC# ??Date Time ??Exam [id number] Sep 13, 2012 12:55:00 [id number] Chest 2 views Front&Lat EXAMINATION: ?? Chest 2 views ?? IMPRESSION: ?? Comparison is made to prior examination dated 09/04/2012. The lungs are clear. ??There is no focal consolidation, effusion, or pneumothorax. ??The heart size is normal. ??There are normal mediastinal contours. Surgical clips are seen in the left upper quadrant of the abdomen. ?? Requested By: NILA TRUONG M.D. Dictated By: ?? AALIYAH RUIZ, ?? on Sep ??2012 ??9:04A This document has been electronically signed by: DIONY MAHONEY M.D. on Sep ??2012 11:24A Procedure Note Provider, MD Fidel - 10/12/2016 DIONY MAHONEY M.D. AALIYAH RUIZ, FINAL REPORT The radiology attending physician has personally reviewed this study, and has reviewed and/or edited this written report and agrees with it. ACC# Date Time Exam [id number] Sep 13, 2012 12:55:00 [id number] Chest 2 views Front&Lat EXAMINATION: Chest 2 views IMPRESSION: Comparison is made to prior examination dated 09/04/2012. The lungs are clear. There is no focal consolidation, effusion, or pneumothorax. The heart size is normal. There are normal mediastinal contours. Surgical clips are seen in the left upper quadrant of the abdomen. Requested By: NILA TRUONG M.D. Dictated By: AALIYAH RUIZ, on Sep 14 2012 9:04A This document has been electronically signed by: DIONY MAHONEY M.D. on Sep 14 2012 11:24A us Historical Provider IMTy XR PROCEDURES Final R esult * (ABNORMAL) Blood cell count [CBC] express (09/13/2012 2:09 AM CDT) WBC 6.5 3.8 - 9.8 K/cumm HISTORICAL RESULTS RBC 3.57(L) 3.90 - 5.00 M/cumm HISTORICAL RESULTS Hgb 10.7(L) 12.1 - 15.1 g/dl HISTORICAL RESULTS Hct 32.7(L) 36.1 - 44.3 % HISTORICAL RESULTS MCV 91.7 80.0 - 97.6 fl HISTORICAL RESULTS MCH 29.9 26.7 - 33.7 pg HISTORICAL RESULTS MCHC 32.6(L) 32.7 - 35.5 g/dl HISTORICAL RESULTS Rdw 12.7 11.8 - 14.6 % HISTORICAL RESULTS Platelets 217 140 - 440 K/cumm HISTORICAL RESULTS MPV 10.4 6.8 - 10.4 fl HISTORICAL RESULTS Blood specimen (specimen) 09/13/2012 2:09 AM CDT Result [facility] Jeimy Laws LAB BLOOD ORDERABLES Final Resul t Performing Organization Address [facility] de Phone Number HISTORICAL RESULTS * (ABNORMAL) Plasma partial thromboplastin time (PTT) (09/13/2012 2:05 AM CDT) APTT 68.9(H) 25.0 - 37.0 seconds HISTORICAL RESULTS Comment: Interpretive Data Therapeutic heparin range:60.0 - 94.0 sec based on correlation with therapeutic heparin activity range of 0.3 -0.7 Units/mL. Current interpretive data was last revised on 2011. Plasma 09/13/2012 2:05 AM CDT Result [facility] Historical Provider LAB BLOOD ORDERABLES Caitlyn l Result Performing Organization Address [facility] Co de Phone Number HISTORICAL RESULTS * (ABNORMAL) Plasma partial thromboplastin time (PTT) (09/11/2012 9:43 AM CDT) APTT 60.4(H) 25.0 - 37.0 seconds HISTORICAL RESULTS Comment: Interpretive Data Therapeutic heparin range:60.0 - 94.0 sec based on correlation with therapeutic heparin activity range of 0.3 -0.7 Units/mL. Current interpretive data was last revised on 2011. Plasma 09/11/2012 9:43 AM CDT Result [facility] Historical Provider LAB BLOOD ORDERABLES Caitlyn l Result HISTORICAL RESULTS * ELECTROCARDIOGRAPHY (ECG) (09/11/2012) Narrative 09/11/2012 Ordered by an unspecified provider. us Historical Provider MD ECG ORDERABLES Final Res ult * (ABNORMAL) Plasma comprehensive metabolic panel (09/10/2012 10:02 PM CDT) Sodium 143 135 - 145 mmol/L HISTORICAL RESULTS K, pl 3.7 3.3 - 4.9 mmol/L HISTORICAL RESULTS Chloride 109 97 - 110 mmol/L HISTORICAL RESULTS CO2 25 22 - 32 mmol/L HISTORICAL RESULTS A. gap 9 0 - 16 mmol/L HISTORICAL RESULTS Glucose 114 65 - 199 mg/dl HISTORICAL RESULTS BUN 18 8 - 25 mg/dl HISTORICAL RESULTS Creatinine 0.83 0.60 - 1.10 mg/dl HISTORICAL RESULTS Calcium 9.7 8.6 - 10.3 mg/dl HISTORICAL RESULTS Protein, pl 6.5 6.5 - 8.5 g/dl HISTORICAL RESULTS Alb 3.4(L) 3.6 - 5.0 g/dl HISTORICAL RESULTS Bilirubin 0.3 0.3 - 1.1 mg/dl HISTORICAL RESULTS Alk phos 91 38 - 126 Units/L HISTORICAL RESULTS AST 30 11 - 47 Units/L HISTORICAL RESULTS ALT 62(H) 7 - 53 Units/L HISTORICAL RESULTS Plasma 09/10/2012 10:0 2 PM CDT David Gabbi Javierhi LAB BLOOD ORDERABLES Final Resul t HISTORICAL RESULTS * (ABNORMAL) Plasma partial thromboplastin time (PTT) (09/10/2012 10:02 PM CDT) APTT 61.3(H) 25.0 - 37.0 seconds HISTORICAL RESULTS Comment: Interpretive Data Therapeutic heparin range:60.0 - 94.0 sec based on correlation with therapeutic heparin activity range of 0.3 -0.7 Units/mL. Current interpretive data was last revised on 2011. Plasma 09/10/2012 10:0 2 PM CDT [facility] LAB BLOOD ORDERABLES Final Resul t Performing Organization Address [facility] Co de Phone Number HISTORICAL RESULTS * (ABNORMAL) Plasma prothrombin time (PT) (09/10/2012 10:02 PM CDT) Prothrombin time (PT) 13.2(H) 9.0 - 12.0 seconds HISTORICAL RESULTS INR 1.28(H) 0.90 - 1.20 HISTORIC AL RESULTS Comment: Interpretive Data Inpatient therapeutic ranges* Atrial fibrillation ?2.0-3.0 INR Venous thrombo-embolism ?2.0-3.0 INR Bioprosthetic heart valve ?* Mechanical heart valve, bileaflet or tilting disk,aortic position ? 2.0-3.0 INR All other,or bileaflet or tilting disk, in mitral position ? 2.5-3.5 INR *See the pharmacy resource directory (PHRED) for an updated copy of the Tool Book at [email or web address]/bjc/pharmacy.nsf Current Interpretive Data was last revised 2011. Plasma 09/10/2012 10:0 2 PM CDT [facility] LAB BLOOD ORDERABLES Final Resul t Performing Organization Address [facility]/ZIP Co de Phone Number HISTORICAL RESULTS * (ABNORMAL) Blood cell count (CBC) (09/10/2012 10:02 PM CDT) WBC 5.7 3.8 - 9.8 K/cumm HISTORICAL RESULTS RBC 3.27(L) 3.90 - 5.00 M/cumm HISTORICAL RESULTS Hgb 10.0(L) 12.1 - 15.1 g/dl HISTORICAL RESULTS Hct 29.3(L) 36.1 - 44.3 % HISTORICAL RESULTS MCV 89.6 80.0 - 97.6 fl HISTORICAL RESULTS MCH 30.4 26.7 - 33.7 pg HISTORICAL RESULTS MCHC 34.0 32.7 - 35.5 g/dl HISTORICAL RESULTS Rdw 12.7 11.8 - 14.6 % HISTORICAL RESULTS Platelets 242 140 - 440 K/cumm HISTORICAL RESULTS MPV 9.8 6.8 - 10.4 fl HISTORICAL RESULTS Neutrophils 61.2 38.7 - 74.5 % HISTORICAL RESULTS Lymphocytes 28.3 20.0 - 54.3 % HISTORICAL RESULTS Monos 9.0 4.3 - 13.5 % HISTORICAL RESULTS Eosinophils 0.8 0.0 - 6.0 % HISTORICAL RESULTS Basophils 0.7 0.0 - 3.0 % HISTORICAL RESULTS Neutrophils, abs 3.5 1.8 - 6.6 K/cumm HISTORICAL RESULTS Lymphocytes, abs 1.6 1.2 - 3.3 K/cumm HISTORICAL RESULTS Monocytes, absolute 0.5 0.2 - 1.2 K/cumm HISTORICAL RESULTS Eosinophils, abs 0.0 0.0 - 0.5 K/cumm HISTORICAL RESULTS Basophils, abs 0.0 0.0 - 0.2 K/cumm HISTORICAL RESULTS Blood specimen (specimen) 09/10/2012 10:02 PM CDT David Huerta LAB BLOOD ORDERABLES Final Resul t HISTORICAL RESULTS * (ABNORMAL) Plasma comprehensive metabolic panel (09/10/2012 6:10 AM CDT) Sodium 141 135 - 145 mmol/L HISTORICAL RESULTS K, pl 4.1 3.3 - 4.9 mmol/L HISTORICAL RESULTS Chloride 107 97 - 110 mmol/L HISTORICAL RESULTS A. gap 8 0 - 16 mmol/L HISTORICAL RESULTS CO2 26 22 - 32 mmol/L HISTORICAL RESULTS Glucose 97 65 - 199 mg/dl HISTORICAL RESULTS BUN 15 8 - 25 mg/dl HISTORICAL RESULTS Creatinine 0.78 0.60 - 1.10 mg/dl HISTORICAL RESULTS Calcium 9.6 8.6 - 10.3 mg/dl HISTORICAL RESULTS Protein, pl 6.7 6.5 - 8.5 g/dl HISTORICAL RESULTS Alb 3.6 3.6 - 5.0 g/dl HISTORICAL RESULTS Bilirubin 0.6 0.3 - 1.1 mg/dl HISTORICAL RESULTS Alk phos 94 38 - 126 Units/L HISTORICAL RESULTS AST 43 11 - 47 Units/L HISTORICAL RESULTS ALT 75(H) 7 - 53 Units/L HISTORICAL RESULTS Plasma 09/10/2012 6:10 AM CDT Result [facility] Historical Provider MD LAB BLOOD ORDERABLES Caitlyn l Result Performing Organization Address [facility] de Phone Number HISTORICAL RESULTS * (ABNORMAL) Plasma partial thromboplastin time (PTT) (09/10/2012 6:10 AM CDT) APTT 63.9(H) 25.0 - 37.0 seconds HISTORICAL RESULTS Comment: Interpretive Data Therapeutic heparin range:60.0 - 94.0 sec based on correlation with therapeutic heparin activity range of 0.3 -0.7 Units/mL. Current interpretive data was last revised on 2011. Plasma 09/10/2012 6:10 AM CDT Result [facility] Historical Provider MD LAB BLOOD ORDERABLES Caitlyn l Result Performing Organization Address [facility] de Phone Number HISTORICAL RESULTS * Plasma phosphorus (09/10/2012 6:10 AM CDT) Phosphorus, pl 3.9 2.3 - 4.3 mg/dl HISTORICAL RESULTS Plasma 09/10/2012 6:10 AM CDT Result [facility] Provider MD LAB BLOOD ORDERABLES Caitlyn l Result Performing Organization Address [facility] de Phone Number HISTORICAL RESULTS * (ABNORMAL) Plasma prothrombin time (PT) (09/10/2012 6:10 AM CDT) INR 1.28(H) 0.90 - 1.20 HISTORIC AL RESULTS Comment: Interpretive Data Inpatient therapeutic ranges* Atrial fibrillation ?2.0-3.0 INR Venous thrombo-embolism ?2.0-3.0 INR Bioprosthetic heart valve ?* Mechanical heart valve, bileaflet or tilting disk,aortic position ? 2.0-3.0 INR All other,or bileaflet or tilting disk, in mitral position ? 2.5-3.5 INR *See the pharmacy resource directory (PHRED) for an updated copy of the Tool Book at [email or web address]/pharmacy.nsf Current Interpretive Data was last revised 2011. Prothrombin time (PT) 13.2(H) 9.0 - 12.0 seconds HISTORICAL RESULTS Plasma 09/10/2012 6:10 AM CDT Historical Provider MD LAB BLOOD ORDERABLES Caitlyn l Result Performing Organization Address [facility] de Phone Number HISTORICAL RESULTS * Serum magnesium (09/10/2012 6:10 AM CDT) Magnesium 2.0 1.4 - 2.5 mg/dl HISTORICAL RESULTS Serum 09/10/2012 6:10 AM CDT Historical Provider LAB BLOOD ORDERABLES Caitlyn l Result Performing Organization Address [facility] de Phone Number HISTORICAL RESULTS * (ABNORMAL) Blood cell count [CBC] express (09/10/2012 6:10 AM CDT) WBC 4.3 3.8 - 9.8 K/cumm HISTORICAL RESULTS RBC 3.44(L) 3.90 - 5.00 M/cumm HISTORICAL RESULTS Hgb 10.3(L) 12.1 - 15.1 g/dl HISTORICAL RESULTS Hct 31.2(L) 36.1 - 44.3 % HISTORICAL RESULTS MCV 90.9 80.0 - 97.6 fl HISTORICAL RESULTS MCH 30.0 26.7 - 33.7 pg HISTORICAL RESULTS MCHC 33.0 32.7 - 35.5 g/dl HISTORICAL RESULTS Rdw 12.8 11.8 - 14.6 % HISTORICAL RESULTS Platelets 241 140 - 440 K/cumm HISTORICAL RESULTS MPV 9.5 6.8 - 10.4 fl HISTORICAL RESULTS Blood specimen (specimen) 09/10/2012 6:10 AM CDT Historical Provider MD LAB BLOOD ORDERABLES Caitlyn l Result Performing Organization Address [facility] de Phone Number HISTORICAL RESULTS * (ABNORMAL) Plasma partial thromboplastin time (PTT) (09/09/2012 5:30 PM CDT) APTT 62.3(H) 25.0 - 37.0 seconds HISTORICAL RESULTS Comment: Interpretive Data Therapeutic heparin range:60.0 - 94.0 sec based on correlation with therapeutic heparin activity range of 0.3 -0.7 Units/mL. Current interpretive data was last revised on 2011. Plasma 09/09/2012 5:30 PM CDT [facility] Provider MD LAB BLOOD ORDERABLES Caitlyn l Result Performing Organization Address [facility] Phone Number HISTORICAL RESULTS * (ABNORMAL) Plasma partial thromboplastin time (PTT) (09/09/2012 4:55 AM CDT) APTT 66.7(H) 25.0 - 37.0 seconds HISTORICAL RESULTS Comment: Interpretive Data Therapeutic heparin range:60.0 - 94.0 sec based on correlation with therapeutic heparin activity range of 0.3 -0.7 Units/mL. Current interpretive data was last revised on 2011. Plasma 09/09/2012 4:55 AM CDT Historical Provider MD LAB BLOOD ORDERABLES Caitlyn l Result Performing Organization Address [facility] de Phone Number HISTORICAL RESULTS * (ABNORMAL) Plasma comprehensive metabolic panel (09/08/2012 10:45 PM CDT) Sodium 140 135 - 145 mmol/L HISTORICAL RESULTS K, pl 3.9 3.3 - 4.9 mmol/L HISTORICAL RESULTS Chloride 109 97 - 110 mmol/L HISTORICAL RESULTS CO2 24 22 - 32 mmol/L HISTORICAL RESULTS A. gap 7 0 - 16 mmol/L HISTORICAL RESULTS Glucose 111 65 - 199 mg/dl HISTORICAL RESULTS BUN 13 8 - 25 mg/dl HISTORICAL RESULTS Creatinine 0.73 0.60 - 1.10 mg/dl HISTORICAL RESULTS Calcium 9.1 8.6 - 10.3 mg/dl HISTORICAL RESULTS Protein, pl 6.4(L) 6.5 - 8.5 g/dl HISTORICAL RESULTS Alb 3.4(L) 3.6 - 5.0 g/dl HISTORICAL RESULTS Bilirubin 0.6 0.3 - 1.1 mg/dl HISTORICAL RESULTS Alk phos 84 38 - 126 Units/L HISTORICAL RESULTS AST 38 11 - 47 Units/L HISTORICAL RESULTS ALT 58(H) 7 - 53 Units/L HISTORICAL RESULTS Plasma 09/08/2012 10:4 5 PM CDT Historical Provider LAB BLOOD ORDERABLES Caitlyn l Result HISTORICAL RESULTS * (ABNORMAL) Plasma partial thromboplastin time (PTT) (09/08/2012 10:45 PM CDT) [facility] APTT 63.8(H) 25.0 - 37.0 seconds HISTORICAL RESULTS Comment: Interpretive Data Therapeutic heparin range:60.0 - 94.0 sec based on correlation with therapeutic heparin activity range of 0.3 -0.7 Units/mL. Current interpretive data was last revised on 2011. Plasma 09/08/2012 10:4 5 PM CDT Historical Provider LAB BLOOD ORDERABLES Caitlyn l Result HISTORICAL RESULTS * Plasma phosphorus (09/08/2012 10:45 PM CDT) Pathologist [facility] Phosphorus, pl 3.1 2.3 - 4.3 mg/dl HISTORICAL RESULTS Plasma 09/08/2012 10:4 5 PM CDT Historical Provider LAB BLOOD ORDERABLES Caitlyn l Result Performing Organization Address [facility] de Phone Number HISTORICAL RESULTS * (ABNORMAL) Plasma prothrombin time (PT) (09/08/2012 10:45 PM CDT) Prothrombin time (PT) 13.1(H) 9.0 - 12.0 seconds HISTORICAL RESULTS INR 1.27(H) 0.90 - 1.20 HISTORIC AL RESULTS Comment: Interpretive Data Inpatient therapeutic ranges* Atrial fibrillation ?2.0-3.0 INR Venous thrombo-embolism ?2.0-3.0 INR Bioprosthetic heart valve ?* Mechanical heart valve, bileaflet or tilting disk,aortic position ? 2.0-3.0 INR All other,or bileaflet or tilting disk, in mitral position ? 2.5-3.5 INR *See the pharmacy resource directory (PHRED) for an updated copy of the Tool Book at [email or web address]/bjc/pharmacy.nsf Current Interpretive Data was last revised 2011. Plasma 09/08/2012 10:4 5 PM CDT Historical Provider LAB BLOOD ORDERABLES Caitlyn l Result Performing Organization Address [facility] Co de Phone Number HISTORICAL RESULTS * Serum magnesium (09/08/2012 10:45 PM CDT) Magnesium 2.0 1.4 - 2.5 mg/dl HISTORICAL RESULTS Serum 09/08/2012 10:4 5 PM CDT Historical Provider LAB BLOOD ORDERABLES Caitlyn l Result HISTORICAL RESULTS * (ABNORMAL) Blood cell count (CBC) (09/08/2012 10:45 PM CDT) WBC 5.9 3.8 - 9.8 K/cumm HISTORICAL RESULTS RBC 3.28(L) 3.90 - 5.00 M/cumm HISTORICAL RESULTS Hgb 9.8(L) 12.1 - 15.1 g/dl HISTORICAL RESULTS Hct 29.4(L) 36.1 - 44.3 % HISTORICAL RESULTS MCV 89.5 80.0 - 97.6 fl HISTORICAL RESULTS MCH 30.0 26.7 - 33.7 pg HISTORICAL RESULTS MCHC 33.5 32.7 - 35.5 g/dl HISTORICAL RESULTS Rdw 12.5 11.8 - 14.6 % HISTORICAL RESULTS Platelets 238 140 - 440 K/cumm HISTORICAL RESULTS MPV 9.4 6.8 - 10.4 fl HISTORICAL RESULTS Neutrophils 61.5 38.7 - 74.5 % HISTORICAL RESULTS Lymphocytes 23.9 20.0 - 54.3 % HISTORICAL RESULTS Monos 13.4 4.3 - 13.5 % HISTORICAL RESULTS Eosinophils 0.8 0.0 - 6.0 % HISTORICAL RESULTS Basophils 0.4 0.0 - 3.0 % HISTORICAL RESULTS Neutrophils, abs 3.6 1.8 - 6.6 K/cumm HISTORICAL RESULTS Lymphocytes, abs 1.4 1.2 - 3.3 K/cumm HISTORICAL RESULTS Monocytes, absolute 0.8 0.2 - 1.2 K/cumm HISTORICAL RESULTS Eosinophils, abs 0.0 0.0 - 0.5 K/cumm HISTORICAL RESULTS Basophils, abs 0.0 0.0 - 0.2 K/cumm HISTORICAL RESULTS Blood specimen (specimen) 09/08/2012 10:45 PM CDT us Historical Provider LAB BLOOD ORDERABLES Caitlyn dominguez Result HISTORICAL RESULTS * (ABNORMAL) Plasma partial thromboplastin time (PTT) (09/08/2012 4:46 PM CDT) APTT 46.5(H) 25.0 - 37.0 seconds HISTORICAL RESULTS Comment: Interpretive Data Therapeutic heparin range:60.0 - 94.0 sec based on correlation with therapeutic heparin activity range of 0.3 -0.7 Units/mL. Current interpretive data was last revised on 2011. Plasma 09/08/2012 4:46 PM CDT us Historical Provider LAB BLOOD ORDERABLES Caitlyn alberto Result HISTORICAL RESULTS * CT Chest WO Contrast (09/08/2012 11:18 AM CDT) Anatomical Region Laterality Modality Body N/A Computed Tomogra phy 09/08/2012 11:1 8 AM CDT Narrative 09/09/2012 4:24 PM CDT CURLY MONROE M.D. CATIA RAYGOZA, FINAL REPORT The radiology attending physician has personally reviewed this study, and has reviewed and/or edited this written report and agrees with it. ACC# ??Date Time ??Exam [id number] Sep 08, 2012 11:18:[address] Chest without contrast EXAMINATION: ? Chest CT without contrast. HISTORY: ??67-year-old woman with coronary artery disease. Study is requested prior to coronary artery bypass grafting. TECHNIQUE: ??Transaxial computed tomographic images of the chest were obtained without intravenous contrast. FINDINGS: ??No prior studies available for comparison. Sternum to mediastinum distances: Manubrium abuts the left brachiocephalic vein Sternomanubrial junction to ascending aorta: 24 mm Superior sternum to ascending aorta: 30 mm Midsternum to RVOT: 29 mm; to ascending aorta: 33 mm Inferior sternum to RV free wall: 15 mm; to RCA 16 mm. Both lungs extend behind the sternum. There is a 3 mm nodule in the right upper lobe at -157. There are subtle ground glass nodules throughout the posterior right upper and lower lobes. There is no pleural effusion or pneumothorax. Heart size is normal, with no pericardial effusion. The great vessels are normal in course and caliber. There are atherosclerotic calcifications of the coronary arteries and aortic arch. There is fibrofatty replacement of the interventricular septum, consistent with old infarct. Right upper quadrant clips are consistent with prior cholecystectomy. A 2.8 x 3.1 cm low attenuation lesion in the left adrenal likely represents an adrenal myelolipoma.There are exophytic lesions arising from the upper pole of the left kidney, which demonstrate fluid attenuation and are likely simple cysts. 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 IMPRESSION: ?? 1. Sternal to mediastinal distances as described above. 2. Multiple subtle groundglass nodules in the posterior right upper and lower lobes, which are likely inflammatory but may be followed with repeat chest CT in 3 to 6 months. 3. 2.8 x 3.1 cm low-attenuation lesion in the left adrenal, likely an adrenal myelolipoma. Requested By: NILA TRUONG M.D. Dictated By: ?? CATIA RAYGOZA, ?? on Sep 08 2012 ??2:22P This document has been electronically signed by: CURLY MONROE M.D. on Sep 09 2012 ??4:24P Procedure Note Provider, MD Fidel - 10/12/2016 CURLY MONROE M.D. CATIA RAYGOZA, FINAL REPORT The radiology attending physician has personally reviewed this study, and has reviewed and/or edited this written report and agrees with it. [facility]# Date Time Exam [id number] Sep 08, 2012 11:18:[address] Chest without contrast EXAMINATION: Chest CT without contrast. HISTORY: 67-year-old woman with coronary artery disease. Study is requested prior to coronary artery bypass grafting. TECHNIQUE: Transaxial computed tomographic images of the chest were obtained without intravenous contrast. FINDINGS: No prior studies available for comparison. Sternum to mediastinum distances: Manubrium abuts the left brachiocephalic vein Sternomanubrial junction to ascending aorta: 24 mm Superior sternum to ascending aorta: 30 mm Midsternum to RVOT: 29 mm; to ascending aorta: 33 mm Inferior sternum to RV free wall: 15 mm; to RCA 16 mm. Both lungs extend behind the sternum. There is a 3 mm nodule in the right upper lobe at -157. There are subtle ground glass nodules throughout the posterior right upper and lower lobes. There is no pleural effusion or pneumothorax. Heart size is normal, with no pericardial effusion. The great vessels are normal in course and caliber. There are atherosclerotic calcifications of the coronary arteries and aortic arch. There is fibrofatty replacement of the interventricular septum, consistent with old infarct. Right upper quadrant clips are consistent with prior cholecystectomy. A 2.8 x 3.1 cm low attenuation lesion in the left adrenal likely represents an adrenal myelolipoma.There are exophytic lesions arising from the upper pole of the left kidney, which demonstrate fluid attenuation and are likely simple cysts. There is a 1.4 cm calcified splenic arteryaneurysm. IMPRESSION: 1. Sternal to mediastinal distances as described above. 2. Multiple subtle groundglass nodules in the posterior right upper and lower lobes, which are likely inflammatory but may be followed with repeat chest CT in 3 to 6 months. 3. 2.8 x 3.1 cm low-attenuation lesion in the left adrenal, likely an adrenal myelolipoma. Requested By: NILA TRUONG M.D. Dictated By: CATIA RAYGOZA on Sep 08 2012 2:22P This document has been electronically signed by: CURLY MONROE M.D. on Sep 09 2012 4:24P Historical Provider IMG CT PROCEDURES Final R esult * (ABNORMAL) Plasma partial thromboplastin time (PTT) (09/08/2012 8:50 AM CDT) APTT 71.4(H) 25.0 - 37.0 seconds HISTORICAL RESULTS Comment: Interpretive Data Therapeutic heparin range:60.0 - 94.0 sec based on correlation with therapeutic heparin activity range of 0.3 -0.7 Units/mL. Current interpretive data was last revised on 2011. Plasma 09/08/2012 8:50 AM CDT Historical Provider LAB BLOOD ORDERABLES Caitlyn dominguez Result HISTORICAL RESULTS * VASCULAR LABORATORY REPORT (09/08/2012) Anatomical Region Laterality Modality Ultrasound Narrative 09/08/2012 Ordered by an unspecified provider. Historical Provider MD CV VASCULAR PROCEDURES Fi nal Result * VASCULAR LABORATORY REPORT (09/08/2012) Anatomical Region Laterality Modality Ultrasound Narrative 09/08/2012 Ordered by an unspecified provider. Historical Provider CV VASCULAR PROCEDURES Fi nal Result * (ABNORMAL) Plasma comprehensive metabolic panel (09/07/2012 9:51 PM CDT) Sodium 142 135 - 145 mmol/L HISTORICAL RESULTS K, pl 3.8 3.3 - 4.9 mmol/L HISTORICAL RESULTS Chloride 109 97 - 110 mmol/L HISTORICAL RESULTS CO2 23 22 - 32 mmol/L HISTORICAL RESULTS A. gap 10 0 - 16 mmol/L HISTORICAL RESULTS Glucose 107 65 - 199 mg/dl HISTORICAL RESULTS BUN 11 8 - 25 mg/dl HISTORICAL RESULTS Creatinine 0.71 0.60 - 1.10 mg/dl HISTORICAL RESULTS Calcium 9.2 8.6 - 10.3 mg/dl HISTORICAL RESULTS Protein, pl 6.7 6.5 - 8.5 g/dl HISTORICAL RESULTS Alb 3.9 3.6 - 5.0 g/dl HISTORICAL RESULTS Bilirubin 0.6 0.3 - 1.1 mg/dl HISTORICAL RESULTS Alk phos 83 38 - 126 Units/L HISTORICAL RESULTS AST 35 11 - 47 Units/L HISTORICAL RESULTS ALT 54(H) 7 - 53 Units/L HISTORICAL RESULTS Plasma 09/07/2012 9:51 PM CDT Result [facility] Historical Provider LAB BLOOD ORDERABLES Caitlyn l Result HISTORICAL RESULTS * (ABNORMAL) Plasma partial thromboplastin time (PTT) (09/07/2012 9:51 PM CDT) APTT 47.3(H) 25.0 - 37.0 seconds HISTORICAL RESULTS Comment: Interpretive Data Therapeutic heparin range:60.0 - 94.0 sec based on correlation with therapeutic heparin activity range of 0.3 -0.7 Units/mL. Current interpretive data was last revised on 2011. Plasma 09/07/2012 9:51 PM CDT Result [facility] Historical Provider LAB BLOOD ORDERABLES Caitlyn l Result Performing Organization Address City/State/[facility] Co de Phone Number HISTORICAL RESULTS * Plasma phosphorus (09/07/2012 9:51 PM CDT) Phosphorus, pl 3.1 2.3 - 4.3 mg/dl HISTORICAL RESULTS Plasma 09/07/2012 9:51 PM CDT Result [facility] Historical Provider LAB BLOOD ORDERABLES Caitlyn l Result Performing Organization Address [facility] de Phone Number HISTORICAL RESULTS * Serum magnesium (09/07/2012 9:51 PM CDT) Pathologist [facility] Magnesium 1.8 1.4 - 2.5 mg/dl HISTORICAL RESULTS Serum 09/07/2012 9:51 PM CDT Result [facility] Historical Provider LAB BLOOD ORDERABLES Caitlyn l Result Performing Organization Address [facility] de Phone Number HISTORICAL RESULTS * (ABNORMAL) Blood cell count [CBC] express (09/07/2012 9:51 PM CDT) Pathologist [facility] WBC 5.2 3.8 - 9.8 K/cumm HISTORICAL RESULTS RBC 3.64(L) 3.90 - 5.00 M/cumm HISTORICAL RESULTS Hgb 10.9(L) 12.1 - 15.1 g/dl HISTORICAL RESULTS Hct 32.2(L) 36.1 - 44.3 % HISTORICAL RESULTS MCV 88.6 80.0 - 97.6 fl HISTORICAL RESULTS MCH 29.9 26.7 - 33.7 pg HISTORICAL RESULTS MCHC 33.7 32.7 - 35.5 g/dl HISTORICAL RESULTS Rdw 12.4 11.8 - 14.6 % HISTORICAL RESULTS Platelets 257 140 - 440 K/cumm HISTORICAL RESULTS MPV 9.3 6.8 - 10.4 fl HISTORICAL RESULTS Blood specimen (specimen) 09/07/2012 9:51 PM CDT Result [facility] Historical Provider LAB BLOOD ORDERABLES Caitlyn l Result Performing Organization Address [facility] de Phone Number HISTORICAL RESULTS * (ABNORMAL) Blood activated clotting time, low (09/07/2012 9:12 AM CDT) Coagulation time, activated 275(H) 123 - 168 seconds HISTORICAL RESULTS Blood specimen (specimen) 09/07/2012 9:12 AM CDT Jeimy Laws LAB BLOOD ORDERABLES Final Resul t Performing Organization Address [facility] Phone Number HISTORICAL RESULTS * (ABNORMAL) Blood activated clotting time, low (09/07/2012 9:01 AM CDT) Coagulation time, activated 218(H) 123 - 168 seconds HISTORICAL RESULTS Blood specimen (specimen) 09/07/2012 9:01 AM CDT Jeimy Aditya Cisnerosmichael LAB BLOOD ORDERABLES Final Resul t Performing Organization Address [facility] de Phone Number HISTORICAL RESULTS * Blood activated clotting time, low (09/07/2012 8:34 AM CDT) Coagulation time, activated 139 123 - 168 seconds HISTORICAL RESULTS Blood specimen (specimen) 09/07/2012 8:34 AM CDT Jeimy Laws LAB BLOOD ORDERABLES Final Resul t Performing Organization Address [facility] Phone Number HISTORICAL RESULTS * Cardiac catheterization (09/07/2012 12:00 AM CDT) Anatomical Region Laterality Modality Other 09/07/2012 Narrative 09/10/2012 8:34 AM CDT Patient: ?James Cueva ? Reg No: ? [id number] ? U H #: ?[id number] ? : ?1945 ? Attending: ??Greg Piedra M.D. ? Dictating: ??Greg Piedra M.D. ? Service Dt: 09/07/2012 ?CARDIAC CATHETERIZATION REPORT FINAL CARDIAC CATHETERIZATION / FRACTIONAL FLOW RESERVE REPORT: PATIENT CLINICAL PROFILE: ?The patient is a 67-year-old female with a past medical history of diverticulitis, deep venous thrombosis in the distant past who presented to [facility] Emergency Room with a one day history of sharp aching pressure-like chest pain. ??She subsequently ruled in for a non-ST elevation myocardial infarction with anterolateral T-wave inversion and is now referred for cardiac catheterization. PROCEDURE: 1. The patient was prepped and draped in the usual sterile fashion. 2. Fluoroscopy was used to help localize the femoral head to help guide ?? arterial access. 3. Using the modified micropuncture technique a 6F sheath was placed in the ?? right femoral artery. 4. Nonionic dye was used for the procedure. 5. Selective coronary angiography using 6F JL4 and 6F JR4 diagnostic catheters. 6. Left heart hemodynamics. 7. Fractional flow reserve of the left anterior descending coronary artery ?? equipment used included a 6F VL 3, a Niotaze Prime wire. 8. Weight-adjusted adjusted heparin was given for anticoagulation. 9. Iliac angiography. 10. The right femoral arteriotomy was closed with a 6F Angioseal device without ?? complication. 11. Note should be made that secondary to some tortuosity of the iliac vessel a ?? long sheath was used. RESULTS: Left Heart Hemodynamics: 1. The left ventricular end diastolic pressure is markedly elevated at 24 mmHg. 2. No gradient is noted across the aortic valve on pullback. Angiography: Left Ventriculogram: No left ventriculogram was performed as the patient did have an echocardiogram prior to catheterization which showed normal left ventricular function. Selective Coronary Arteriography: Left Coronary System: 1. Left main coronary artery: ??The left main coronary artery has mild ostial ?? narrowing which is best appreciated in the [place] cranial view. ??It does have ?? mild distal narrowing as well. 2. Left circumflex coronary artery: ??There is a 90% hazy ostial circumflex ?? lesion with some mild distal left main involvement. ??It gives rise to a very ?? tiny first marginal. ??There is a second 30% lesion and then a distal 40-50% ?? lesion. 3. Left anterior descending coronary artery: ??The left anterior descending ?? coronary artery has an ostial lesion of approximately 50%. ??It becomes more ?? normal in appearance and then has another tandem LAD lesion of 50%. ??This is ?? best appreciated in the [place] cranial view. ??A small diagonal originates from ?? here which has a 40-50% ostial lesion. ??There is mild bridging in the mid ?? left anterior descending artery. Right Coronary System: The right coronary artery is a dominant vessel giving rise to a PDA and several right posterior LV branches. ??There is mild narrowing of the connecting segment and mild narrowing in the distal segment. Fractional Flow [place] Assessment: To help guide revascularization options fractional flow reserve was obtained of the moderate left anterior descending coronary artery lesion. ??A Niotaze Prime wire was normalized in the aorta. ??It was moved distally in the left anterior descending coronary artery. ??Intravenous Adenosine was given which revealed a minimum fractional flow reserve of .83 with no significant drift on pullback. DIAGNOSTIC IMPRESSIONS: Two vessel coronary artery disease with 95% ostial circumflex involving the distal left main, 40-50% obtuse marginal 1, 50% ostial and proximal left anterior descending coronary artery with the left anterior descending coronary artery having a borderline negative fractional flow reserve. THERAPEUTIC RECOMMENDATIONS: 1. Mrs. Cueva presents with a non-ST elevation myocardial infarction. ??His ?? circumflex is no doubt her culprit. 2. Her ostial left anterior descending coronary artery lesion is borderline ?? negative for hemodynamic significance by fractional flow reserve assessment. 3. Her therapeutic options would include stenting of her ostial circumflex ?? which by the nature of it would involve stenting of the distal left main as ?? well. ??Alternatively, she could have bypass grafting of both her left ?? anterior descending and circumflex coronary arteries. ??Though her LAD, ?? strictly speaking, is negative by fractional flow reserve assessment, this ?? is borderline and it is likely that its flow is sufficiently diminished that ?? it would support a bypass graft. 4. The two options of percutaneous revascularization with stenting of the left ?? main and ostial circumflex and liklely the LAD as well vs versus bypass ?? grafting of the left anterior descending and circumflex coronary arteries ?? were presented to the patient who wished to discuss it with her family and a ?? surgeon before coming to a decision about which approach she preferred. Electronically Signed By Greg Piedra M.D. 09/10/2012 08:34 A Greg Piedra M.D. [facility] #[id number] Editing MT: TD: ??09/07/2012 10:13:00 cc: ?? Vernon White M.D. ?Greg Piedra M.D. ?Jeimy Laws M.D. Procedure Note Provider, MD Fidel - 10/15/2016 Patient: James Cueva Reg No: [id number] Formerly [facility] #: [id number] : 1945 Attending: Greg Piedra M.D. Dictating: Greg Piedra M.D. Service Dt: 09/07/2012 CARDIAC CATHETERIZATION REPORT FINAL CARDIAC CATHETERIZATION / FRACTIONAL FLOW RESERVE REPORT: PATIENT CLINICAL PROFILE: The patient is a 67-year-old female with a past medical history of diverticulitis, deep venous thrombosis in the distant past who [facility] with a one day history of sharpaching pressure-like chest pain. She subsequently ruled in for a non-STelevation myocardial infarction with anterolateral T-wave inversion and is nowreferred for cardiac catheterization. PROCEDURE: 1. The patient was prepped and draped in the usual sterile fashion. 2. Fluoroscopy was used to help localize the femoral head to help guide arterial access. 3. Using the modified micropuncture technique a 6F sheath was placed inthe right femoral artery. 4. Nonionic dye was used for the procedure. 5. Selective coronary angiography using 6F JL4 and 6F JR4 diagnosticcatheters. 6. Left heart hemodynamics. 7. Fractional flow reserve of the left anterior descending coronaryartery equipment used included a 6F VL 3, a Niotaze Prime wire. 8. Weight-adjusted adjusted heparin was given for anticoagulation. 9. Iliac angiography. 10. The right femoral arteriotomy was closed with a 6F Angioseal devicewithout complication. 11. Note should be made that secondary to some tortuosity of the iliacvessel a long sheath was used. RESULTS: Left Heart Hemodynamics: 1. The left ventricular end diastolic pressure is markedly elevated at 24mmHg. 2. No gradient is noted across the aortic valve on pullback. Angiography: Left Ventriculogram: No left ventriculogram was performed as the patient did have anechocardiogram prior to catheterization which showed normal left ventricular function. Selective Coronary Arteriography: Left Coronary System: 1. Left main coronary artery: The left main coronary artery has mildostial narrowing which is best appreciated in the BAHAM[place] cranial view. It doeshave mild distal narrowing as well. 2. Left circumflex coronary artery: There is a 90% hazy ostialcircumflex lesion with some mild distal left main involvement. It gives rise to jazlyn tiny first marginal. There is a second 30% lesion and then a [id number]% lesion. 3. Left anterior descending coronary artery: The left anteriordescending coronary artery has an ostial lesion of approximately 50%. It becomesmore normal in appearance and then has another tandem LAD lesion of 50%.This is best appreciated in the [place] cranial view. A small diagonal originatesfrom here which has a 40-50% ostial lesion. There is mild bridging in themid left anterior descending artery. Right Coronary System: The right coronary artery is a dominant vessel giving rise to a PDA andseveral right posterior LV branches. There is mild narrowing of the connectingsegment and mild narrowing in the distal segment. Fractional Flow [place] Assessment: To help guide revascularization options fractional flow reserve wasobtained of the moderate left anterior descending coronary artery lesion. A [employer]se wire was normalized in the aorta. It was moved distally in the leftanterior descending coronary artery. Intravenous Adenosine was given whichrevealed a minimum fractional flow reserve of .83 with no significant drift onpullback. DIAGNOSTIC IMPRESSIONS: Two vessel coronary artery disease with 95% ostial circumflex involvingthe distal left main, 40-50% obtuse marginal 1, 50% ostial and proximal left anterior descending coronary artery with the left anterior descendingcoronary artery having a borderline negative fractional flow reserve. THERAPEUTIC RECOMMENDATIONS: 1. Mrs. Cueva presents with a non-ST elevation myocardial infarction.His circumflex is no doubt her culprit. 2. Her ostial left anterior descending coronary artery lesion isborderline negative for hemodynamic significance by fractional flow reserveassessment. 3. Her therapeutic options would include stenting of her ostialcircumflex which by the nature of it would involve stenting of the distal leftmain as well. Alternatively, she could have bypass grafting of both her left anterior descending and circumflex coronary arteries. Though herLAD, strictly speaking, is negative by fractional flow reserve assessment,this is borderline and it is likely that its flow is sufficiently diminishedthat it would support a bypass graft. 4. The two options of percutaneous revascularization with stenting of theleft main and ostial circumflex and liklely the LAD as well vs versusbypass grafting of the left anterior descending and circumflex coronaryarteries were presented to the patient who wished to discuss it with her familyand a surgeon before coming to a decision about which approach shepreferred. Electronically Signed By Greg Piedra M.D. 09/10/2012 08:34 A Greg Piedra M.D. MEBashir/gavi #[id number] Editing MT: TD: 09/07/2012 10:13:00 cc: Penelope Sim M.D. Hannah Clare Otepka, M.D. Historical Provider CV CARDIAC CATH PROCEDURE S Final Result * (ABNORMAL) Blood cell count [CBC] express (09/06/2012 10:26 PM CDT) WBC 5.4 3.8 - 9.8 K/cumm HISTORICAL RESULTS RBC 3.63(L) 3.90 - 5.00 M/cumm HISTORICAL RESULTS Hgb 11.0(L) 12.1 - 15.1 g/dl HISTORICAL RESULTS Hct 32.2(L) 36.1 - 44.3 % HISTORICAL RESULTS MCV 88.9 80.0 - 97.6 fl HISTORICAL RESULTS MCH 30.3 26.7 - 33.7 pg HISTORICAL RESULTS MCHC 34.0 32.7 - 35.5 g/dl HISTORICAL RESULTS Rdw 12.9 11.8 - 14.6 % HISTORICAL RESULTS Platelets 238 140 - 440 K/cumm HISTORICAL RESULTS MPV 9.4 6.8 - 10.4 fl HISTORICAL RESULTS Blood specimen (specimen) 09/06/2012 10:26 PM CDT Historical Provider LAB BLOOD ORDERABLES Caitlyn l Result HISTORICAL RESULTS * (ABNORMAL) Plasma comprehensive metabolic panel (09/06/2012 10:20 PM CDT) Sodium 141 135 - 145 mmol/L HISTORICAL RESULTS K, pl 4.0 3.3 - 4.9 mmol/L HISTORICAL RESULTS Chloride 108 97 - 110 mmol/L HISTORICAL RESULTS CO2 24 22 - 32 mmol/L HISTORICAL RESULTS A. gap 9 0 - 16 mmol/L HISTORICAL RESULTS Glucose 119 65 - 199 mg/dl HISTORICAL RESULTS BUN 16 8 - 25 mg/dl HISTORICAL RESULTS Creatinine 0.72 0.60 - 1.10 mg/dl HISTORICAL RESULTS Calcium 9.2 8.6 - 10.3 mg/dl HISTORICAL RESULTS Protein, pl 6.7 6.5 - 8.5 g/dl HISTORICAL RESULTS Alb 3.6 3.6 - 5.0 g/dl HISTORICAL RESULTS Bilirubin 0.5 0.3 - 1.1 mg/dl HISTORICAL RESULTS Alk phos 84 38 - 126 Units/L HISTORICAL RESULTS AST 29 11 - 47 Units/L HISTORICAL RESULTS ALT 57(H) 7 - 53 Units/L HISTORICAL RESULTS Plasma 09/06/2012 10:2 0 PM CDT Historical Provider LAB BLOOD ORDERABLES Caitlyn l Result Performing Organization Address [facility] de Phone Number HISTORICAL RESULTS * (ABNORMAL) Plasma partial thromboplastin time (PTT) (09/06/2012 10:20 PM CDT) APTT 67.7(H) 25.0 - 37.0 seconds HISTORICAL RESULTS Comment: Interpretive Data Therapeutic heparin range:60.0 - 94.0 sec based on correlation with therapeutic heparin activity range of 0.3 -0.7 Units/mL. Current interpretive data was last revised on 2011. Plasma 09/06/2012 10:2 0 PM CDT Result [facility] Historical Provider LAB BLOOD ORDERABLES Caitlyn l Result Performing Organization Address [facility] de Phone Number HISTORICAL RESULTS * Plasma phosphorus (09/06/2012 10:20 PM CDT) Phosphorus, pl 2.3 2.3 - 4.3 mg/dl HISTORICAL RESULTS Plasma 09/06/2012 10:2 0 PM CDT Result [facility] Historical Provider LAB BLOOD ORDERABLES Caitlyn l Result Performing Organization Address [facility] Co de Phone Number HISTORICAL RESULTS * Plasma prothrombin time (PT) (09/06/2012 10:20 PM CDT) Prothrombin time (PT) 11.5 9.0 - 12.0 seconds HISTORICAL RESULTS INR 1.12 0.90 - 1.20 HISTORIC AL RESULTS Comment: Interpretive Data Inpatient therapeutic ranges* Atrial fibrillation ?2.0-3.0 INR Venous thrombo-embolism ?2.0-3.0 INR Bioprosthetic heart valve ?* Mechanical heart valve, bileaflet or tilting disk,aortic position ? 2.0-3.0 INR All other,or bileaflet or tilting disk, in mitral position ? 2.5-3.5 INR *See the pharmacy resource directory (PHRED) for an updated copy of the Tool Book at [email or web address] Current Interpretive Data was last revised 2011. Plasma 09/06/2012 10:2 0 PM CDT Historical Provider MD LAB BLOOD ORDERABLES Caitlyn l Result Performing Organization Address [facility] de Phone Number HISTORICAL RESULTS * Serum magnesium (09/06/2012 10:20 PM CDT) Magnesium 1.7 1.4 - 2.5 mg/dl HISTORICAL RESULTS Serum 09/06/2012 10:2 0 PM CDT Historical Provider MD LAB BLOOD ORDERABLES Caitlyn l Result Performing Organization Address [facility] de Phone Number HISTORICAL RESULTS * (ABNORMAL) Plasma partial thromboplastin time (PTT) (09/06/2012 3:45 PM CDT) APTT 69.4(H) 25.0 - 37.0 seconds HISTORICAL RESULTS Comment: Interpretive Data Therapeutic heparin range:60.0 - 94.0 sec based on correlation with therapeutic heparin activity range of 0.3 -0.7 Units/mL. Current interpretive data was last revised on 2011. Plasma 09/06/2012 3:45 PM CDT Historical Provider LAB BLOOD ORDERABLES Caitlyn dominguez Result Performing Organization Address [facility] Co de Phone Number HISTORICAL RESULTS * (ABNORMAL) Plasma partial thromboplastin time (PTT) (09/06/2012 7:00 AM CDT) APTT 58.7(H) 25.0 - 37.0 seconds HISTORICAL RESULTS Comment: Interpretive Data Therapeutic heparin range:60.0 - 94.0 sec based on correlation with therapeutic heparin activity range of 0.3 -0.7 Units/mL. Current interpretive data was last revised on 2011. Plasma 09/06/2012 7:00 AM CDT Result [facility] Provider LAB BLOOD ORDERABLES Caitlyn dominguez Result Performing Organization Address [facility] de Phone Number HISTORICAL RESULTS * ELECTROCARDIOGRAPHY (ECG) (09/06/2012) Narrative 09/06/2012 Ordered by an unspecified provider. Result [facility] Provider ECG ORDERABLES Final Res ult * (ABNORMAL) Plasma comprehensive metabolic panel (09/05/2012 11:00 PM CDT) Sodium 143 135 - 145 mmol/L HISTORICAL RESULTS K, pl 4.6 3.3 - 4.9 mmol/L HISTORICAL RESULTS Chloride 113(H) 97 - 110 mmol/L HISTORICAL RESULTS CO2 23 22 - 32 mmol/L HISTORICAL RESULTS A. gap 7 0 - 16 mmol/L HISTORICAL RESULTS Glucose 103 65 - 199 mg/dl HISTORICAL RESULTS BUN 16 8 - 25 mg/dl HISTORICAL RESULTS Creatinine 0.72 0.60 - 1.10 mg/dl HISTORICAL RESULTS Calcium 9.1 8.6 - 10.3 mg/dl HISTORICAL RESULTS Protein, pl 6.4(L) 6.5 - 8.5 g/dl HISTORICAL RESULTS Alb 3.5(L) 3.6 - 5.0 g/dl HISTORICAL RESULTS Bilirubin 0.4 0.3 - 1.1 mg/dl HISTORICAL RESULTS Alk phos 84 38 - 126 Units/L HISTORICAL RESULTS AST 43 11 - 47 Units/L HISTORICAL RESULTS ALT 65(H) 7 - 53 Units/L HISTORICAL RESULTS Plasma 09/05/2012 11:0 0 PM CDT Historical Provider MD LAB BLOOD ORDERABLES Caitlyn dominguez Result Performing Organization Address [facility] de Phone Number HISTORICAL RESULTS * (ABNORMAL) Plasma partial thromboplastin time (PTT) (09/05/2012 11:00 PM CDT) APTT 52.0(H) 25.0 - 37.0 seconds HISTORICAL RESULTS Comment: Interpretive Data Therapeutic heparin range:60.0 - 94.0 sec based on correlation with therapeutic heparin activity range of 0.3 -0.7 Units/mL. Current interpretive data was last revised on 2011. Plasma 09/05/2012 11:0 0 PM CDT Historical Provider MD LAB BLOOD ORDERABLES Caitlyn dominguez Result Performing Organization Address [facility] de Phone Number HISTORICAL RESULTS * Plasma prothrombin time (PT) (09/05/2012 11:00 PM CDT) Prothrombin time (PT) 11.2 9.0 - 12.0 seconds HISTORICAL RESULTS INR 1.09 0.90 - 1.20 HISTORIC AL RESULTS Comment: Interpretive Data Inpatient therapeutic ranges* Atrial fibrillation ?2.0-3.0 INR Venous thrombo-embolism ?2.0-3.0 INR Bioprosthetic heart valve ?* Mechanical heart valve, bileaflet or tilting disk,aortic position ? 2.0-3.0 INR All other,or bileaflet or tilting disk, in mitral position ? 2.5-3.5 INR *See the pharmacy resource directory (PHRED) for an updated copy of the Tool Book at [email or web address] Current Interpretive Data was last revised 2011. Plasma 09/05/2012 11:0 0 PM CDT Historical Provider MD LAB BLOOD ORDERABLES Caitlyn l Result Performing Organization Address [facility] Co de Phone Number HISTORICAL RESULTS * Serum magnesium (09/05/2012 11:00 PM CDT) Magnesium 2.0 1.4 - 2.5 mg/dl HISTORICAL RESULTS Serum 09/05/2012 11:0 0 PM CDT Result [facility] Provider MD LAB BLOOD ORDERABLES Caitlyn l Result Performing Organization Address [facility] de Phone Number HISTORICAL RESULTS * (ABNORMAL) Blood cell count (CBC) (09/05/2012 11:00 PM CDT) WBC 5.0 3.8 - 9.8 K/cumm HISTORICAL RESULTS RBC 3.71(L) 3.90 - 5.00 M/cumm HISTORICAL RESULTS Hgb 11.2(L) 12.1 - 15.1 g/dl HISTORICAL RESULTS Hct 33.1(L) 36.1 - 44.3 % HISTORICAL RESULTS MCV 89.3 80.0 - 97.6 fl HISTORICAL RESULTS MCH 30.1 26.7 - 33.7 pg HISTORICAL RESULTS MCHC 33.8 32.7 - 35.5 g/dl HISTORICAL RESULTS Rdw 13.1 11.8 - 14.6 % HISTORICAL RESULTS Platelets 229 140 - 440 K/cumm HISTORICAL RESULTS MPV 9.4 6.8 - 10.4 fl HISTORICAL RESULTS Neutrophils 47.1 38.7 - 74.5 % HISTORICAL RESULTS Lymphocytes 37.0 20.0 - 54.3 % HISTORICAL RESULTS Monos 14.6(H) 4.3 - 13.5 % HISTORICAL RESULTS Eosinophils 0.7 0.0 - 6.0 % HISTORICAL RESULTS Basophils 0.6 0.0 - 3.0 % HISTORICAL RESULTS Neutrophils, abs 2.4 1.8 - 6.6 K/cumm HISTORICAL RESULTS Lymphocytes, abs 1.8 1.2 - 3.3 K/cumm HISTORICAL RESULTS Monocytes, absolute 0.7 0.2 - 1.2 K/cumm HISTORICAL RESULTS Eosinophils, abs 0.0 0.0 - 0.5 K/cumm HISTORICAL RESULTS Basophils, abs 0.0 0.0 - 0.2 K/cumm HISTORICAL RESULTS Blood specimen (specimen) 09/05/2012 11:00 PM CDT Historical Provider MD LAB BLOOD ORDERABLES Caitlyn l Result Performing Organization Address [facility] de Phone Number HISTORICAL RESULTS * (ABNORMAL) Plasma partial thromboplastin time (PTT) (09/05/2012 1:20 PM CDT) APTT 52.9(H) 25.0 - 37.0 seconds HISTORICAL RESULTS Comment: Interpretive Data Therapeutic heparin range:60.0 - 94.0 sec based on correlation with therapeutic heparin activity range of 0.3 -0.7 Units/mL. Current interpretive data was last revised on 2011. Plasma 09/05/2012 1:20 PM CDT Result [facility] Provider MD LAB BLOOD ORDERABLES Caitlyn l Result Performing Organization Address [facility] de Phone Number HISTORICAL RESULTS * (ABNORMAL) Serum troponin I (09/05/2012 1:20 PM CDT) Troponin I 3.02(C) 0.00 - 0.24 ng/ml HISTORICAL RESULTS Comment: {Previous critical value noted 8 hours ago.} Interpretive Data Normal Range: <0.07 ng/mL: Negative 0.07 - 0.24 ng/mL: Elevated, may be consistent with Myocardial Injury/Ischemia but is nondiagnostic and of equivocal significance. Consider obtaining additional Troponin values. (JAM Karey Cardiol 2000; 36:959. Circulation 2000; 102: 1193., 2002; 106: 1893., 2003: 108: 2543) Greater than or equal to 0.25 ng/mL: Positive Troponin, suggest establishing rising or falling pattern and evidence of Cardiac Ischemia for consideration of Myocardial Infarction. Current interpretive data was last revised on 2007. Serum 09/05/2012 1:20 PM CDT Historical Provider MD LAB BLOOD ORDERABLES Caitlyn l Result Performing Organization Address [facility] Co de Phone Number HISTORICAL RESULTS * Influenza virus PCR (09/05/2012 4:40 AM CDT) Nasopharyngeal (Unknown) 09/05/2012 4:40 AM CDT 09/05/2012 5:59 AM CDT Impressions HISTORICAL RESULTS - 09/05/2012 11:40 AM CDT This test has been performed using the [employer] Xpert Flu Assay. ??This is a multiplex, real-time reverse transcriptase PCR assay that detects and differentiates influenza A, 2009 H1N1 influenza A, and influenza B viral RNA. ??This assay has been cleared by the US Food and Drug Administration, and its performance characteristics have been verified by the [facility]biology [facility]. Current interpretive data was last revised on 2011. Narrative HISTORICAL RESULTS - 09/05/2012 11:40 AM CDT Flu A target RNA not detected Flu B target RNA not detected Historical Provider LAB MICROBIOLOGY - GENERA L ORDERABLES Final Result Performing Organization Address [facility] Co de Phone Number HISTORICAL RESULTS * (ABNORMAL) Serum troponin I (09/05/2012 4:22 AM CDT) Troponin I 3.49(C) 0.00 - 0.24 ng/ml HISTORICAL RESULTS Comment: {Previous critical value noted 6 hours ago.} Interpretive Data Normal Range: <0.07 ng/mL: Negative 0.07 - 0.24 ng/mL: Elevated, may be consistent with Myocardial Injury/Ischemia but is nondiagnostic and of equivocal significance. Consider obtaining additional Troponin values. (JAM Karey Cardiol 2000; 36:959. Circulation 2000; 102: 1193., 2002; 106: 1893., 2003: 108: 2543) Greater than or equal to 0.25 ng/mL: Positive Troponin, suggest establishing rising or falling pattern and evidence of Cardiac Ischemia for consideration of Myocardial Infarction. Current interpretive data was last revised on 2007. Serum 09/05/2012 4:22 AM CDT Historical Provider MD LAB BLOOD ORDERABLES Caitlyn dominguez Result Performing Organization Address [facility] de Phone Number HISTORICAL RESULTS * (ABNORMAL) Plasma partial thromboplastin time (PTT) (09/05/2012 4:00 AM CDT) APTT 130.4(H) 25.0 - 37.0 seconds HISTORICAL RESULTS Comment: Interpretive Data Therapeutic heparin range:60.0 - 94.0 sec based on correlation with therapeutic heparin activity range of 0.3 -0.7 Units/mL. Current interpretive data was last revised on 2011. Plasma 09/05/2012 4:00 AM CDT Historical Provider MD LAB BLOOD ORDERABLES Caitlyn dominguez Result Performing Organization Address [facility] de Phone Number HISTORICAL RESULTS * All Microbiology Report Section (09/05/2012 12:00 AM CDT) 09/05/2012 Narrative HISTORICAL RESULTS - 09/17/2012 3:23 PM CDT ? [facility] ?[address] [facility] [place] ?[place], [place] [address] ? Patient Name: ??ARAVINDSUSANNAHGabbi JAMES Colbert ? Med Rec Number: [id number] ? Fin Number: ?[id number] ? Date: ?1945 ? Sex/Age: ? Female 67 years ? Admit Date: ?09/04/2012 ? Discharge Date: ? Doctor: ?MEDICINE , 1302 ? Facility: ?[facility] ? Location: ?[id number] ?* Abnormal ??A Alert ??f Footnote ??^ Corrected ??L Low ??H High ?i Interp Data ??@ Ref Lab ? Chart Type:Cumulative ?* * * * MICROBIOLOGY - MOLECULAR TESTING * * * * ?PROCEDURE: Influenza PCR ? SOURCE: Nasopharyngeal ? COLLECTED: 03/23/13 ??0440 ?BODY SITE: ? STARTED: 03/23/13 ??0559 ? FREE TEXT SOURCE: ? FINAL REPORT ? REPORTED: 09/05/12 1140 ? Flu A target RNA not detected Flu B target RNA not detected ?* * * ??Interpretive Results ??* * * ? (1)This test has been performed using the [employer]ish Xpert Flu Assay. ? This is a multiplex, real-time reverse transcriptase PCR assay ? that detects and differentiates influenza A, 2009 H1N1 influenza ? A, and influenza B viral RNA. ??This assay has been cleared by ? the US Food and Drug Administration, and its performance ? characteristics have been verified by the [facility] ? Microbiology Laboratory.Current interpretive data was last ? revised on 07/16/2011. ? us Historical Provider LAB MICROBIOLOGY - GENERA L ORDERABLES Final Result HISTORICAL RESULTS * Transthoracic Echo Complete W Doppler/CF WO Contrast (09/05/2012 12:00 AM CDT) Anatomical Region Laterality Modality Ultrasound 09/05/2012 Narrative 09/05/2012 12:00 AM CDT Patient name: James Cueva Date of test: 09/05/2012 Type of test: TTE w/Doppler [facility] #: [id number] Date of : 1945 (F) Chief Resource Officer: Jahaira Dawn RDCS Referring Physician: Jeimy Laws MD Contrast Agent: Contrast Administered by: Supervised/Interpreted by: Black Kebede MD Diagnosis: Location: 9200 ([facility]) Reason for test: ??Chest Pain (Tightness/Pressure) MV Structure: Normal, ?MV Motion: Normal, ?? Mitral Annulus: Normal AV Structure: tricuspid and is Normal, ?? AV Motion: Normal Aotic root: Normal, ?TM: Normal, ?? PV: Normal Valvular Vegetations: none seen, ?Mass/Thrombi: none seen RA: Normal Measurements: ?M-Mode ?Normal ?Indexed ?? Aotic Root: 3.1 cm ?< 3.8 cm ? LA: ? < 3.8 ? RV: ? < 2.8 cm ? LV(ED): ? < 5.7 cm ? LEV(ES): ?Variable ?2D Linear Normal ?2D Vol. ?? Normal ? Aotic Root: ? NA ?NA ? LA: ? < 3.8 ?<22 +/- 6 RV: ? < 3.3 cm ?11-28 cm2 LV(ED): ? 5.7 cm ?< 5.3 cm ??61.0 mL ?? 56-104 ? LEV(ES): ?3.4 cm ?Variable ??22.0 mL ?? 19-49 mL ?? LV EF: 65 % ?(Normal: > 54%) LV Wall Thickness: 0.9 cm Wall Motion Scoring (1=Normal 2=Hypo 3=Akinetic 4=Dyskin. 5=Aneurysm 0=Not visualized) Parasternal Long [place]:MAS=1 BAS=1 MP=1 BP=1 Parasternal Short [place]:MAS=1 MS=1 CO=1 MP=1 ML=1 MA=1 Apical 4 Chambers:=1 MS=1 BS=1 BL=1 CO=1 AL=1 Apical 2 Chambers:AI=1 CO=1 BI=1 BA=1 MA=1 AA=1 LV Function: Normal LV Systolic Function, ??(EF = 55 to 70%) RV Function: Normal Septal Motion: Normal Pericardial Effusion: none seen Atrial Septum: Normal DOPPLER/COLOR FOLOW DOPPLER RESULTS: Diastolic Function: Pseudo normal Tricuspid Valve: mild TV regurgitation Pulmonic Valve: normal PV AV Regurgitation: No AR seen AV Stenosis: no AV Area: ??cm2 AV Pressure Gradient (mmHg): Mean: 0, Peak:0 MV Regurgitation: Mild MR MV Stenosis: no MS MV Area: ??cm2 MV Pressure Gradient (mmHg): Mean: 0 MV ERO: ??cm Regurg. Vol.: ??ml/beat Regurg. Frac.: ??% PA Pressure: ??mmHg DOPPLER/COLOR FOLOW DOPPLER COMMENTS: No AR seen, Mild MR, no , no MS, mild TV regurgitation, normal PV. Diastolic function: Pseudo normal SUMMARY: LA is normal. Normal RV cavity size and function. LV cavity size is normal. Normal LV wall thickness/mass. Normal LVEF65%. Pseudonormal diastolic dysfunction. Mild MR, Mild TR. Normal Inferior vena cava. Normal aorta. Confirmed on ??09/05/2012 - 17:05:10 by Black Kebede MD By signing this report, the attending store team leader certifies that he or she has personally supervised and interpreted the echocardiogram and has reviewed and or edited and agrees with the written comments contained within the report. Procedure Note Provider, MD Fidel - 10/15/2016 Patient name: James Cueva Date of test: 09/05/2012 Type of test: TTE w/Doppler [facility] #: [id number] Date of : 1945 (F) Chief Resource Officer: Jahaira Dawn RDCS Referring Physician: Jeimy Laws MD Contrast Agent: Contrast Administered by: Supervised/Interpreted by: Black Kebede MD Diagnosis: Location: 92 ([facility]) Reason for test: Chest Pain (Tightness/Pressure) MV Structure: Normal, MV Motion: Normal, Mitral Annulus: Normal AV Structure: tricuspid and is Normal, AV Motion: Normal Aotic root: Normal, TM: Normal, PV: Normal Valvular Vegetations: none seen, Mass/Thrombi: none seen RA: Normal Measurements: M-Mode Normal Indexed Aotic Root: 3.1 cm < 3.8 cm LA: < 3.8 RV: < 2.8 cm LV(ED): < 5.7 cm LEV(ES): Variable 2D Linear Normal 2D Vol. Normal Aotic Root: NA NA LA: < 3.8 <22 +/- 6 RV: < 3.3 cm 11-28 cm2 LV(ED): 5.7 cm < 5.3 cm 61.0 mL 56-104 LEV(ES): 3.4 cm Variable 22.0 mL 19-49 mL LV EF: 65 % (Normal: > 54%) LV Wall Thickness: 0.9 cm Wall Motion Scoring (1=Normal 2=Hypo 3=Akinetic 4=Dyskin. 5=Aneurysm 0=Not visualized) Parasternal Long [place]:MAS=1 BAS=1 MP=1 BP=1 Parasternal Short [place]:MAS=1 MS=1 CO=1 MP=1 ML=1 MA=1 Apical 4 Chambers:=1 MS=1 BS=1 BL=1 CO=1 AL=1 Apical 2 Chambers:AI=1 CO=1 BI=1 BA=1 MA=1 AA=1 LV Function: Normal LV Systolic Function, (EF = 55 to 70%) RV Function: Normal Septal Motion: Normal Pericardial Effusion: none seen Atrial Septum: Normal DOPPLER/COLOR FOLOW DOPPLER RESULTS: Diastolic Function: Pseudo normal Tricuspid Valve: mild TV regurgitation Pulmonic Valve: normal PV AV Regurgitation: No AR seen AV Stenosis: no AV Area: cm2 AV Pressure Gradient (mmHg): Mean: 0, Peak:0 MV Regurgitation: Mild MR MV Stenosis: no MS MV Area: cm2 MV Pressure Gradient (mmHg): Mean: 0 MV ERO: cm Regurg. Vol.: ml/beat Regurg. Frac.: % PA Pressure: mmHg DOPPLER/COLOR FOLOW DOPPLER COMMENTS: No AR seen, Mild MR, no , no MS, mild TV regurgitation, normal PV. Diastolic function: Pseudo normal SUMMARY: LA is normal. Normal RV cavity size and function. LV cavity size is normal. Normal LV wall thickness/mass. Normal [id number]%. Pseudonormal diastolic dysfunction. Mild MR, Mild TR. Normal Inferior vena cava. Normal aorta. Confirmed on 09/05/2012 - 17:05:10 by Black Kebede MD By signing this report, the attending store team leader certifies that he or she has personally supervised and interpreted the echocardiogram and has reviewed and or edited and agrees with the written comments contained within the report. Historical Provider CV ECHO PROCEDURES Final Result * (ABNORMAL) Serum troponin I (09/04/2012 9:30 PM CDT) Pathologist [facility] Troponin I 4.15(C) 0.00 - 0.24 ng/ml HISTORICAL RESULTS Comment: {Previous critical value noted 8 hours ago.} Interpretive Data Normal Range: <0.07 ng/mL: Negative 0.07 - 0.24 ng/mL: Elevated, may be consistent with Myocardial Injury/Ischemia but is nondiagnostic and of equivocal significance. Consider obtaining additional Troponin values. (JAM Karey Cardiol 2000; 36:959. Circulation 2000; 102: 1193., 2002; 106: 1893., 2003: 108: 5123) Greater than or equal to 0.25 ng/mL: Positive Troponin, suggest establishing rising or falling pattern and evidence of Cardiac Ischemia for consideration of Myocardial Infarction. Current interpretive data was last revised on 2007. Serum 09/04/2012 9:30 PM CDT Historical Provider LAB BLOOD ORDERABLES Caitlyn l Result Performing Organization Address [facility] Co de Phone Number HISTORICAL RESULTS * (ABNORMAL) Plasma comprehensive metabolic panel (09/04/2012 9:30 PM CDT) Sodium 145 135 - 145 mmol/L HISTORICAL RESULTS K, pl 2.9(L) 3.3 - 4.9 mmol/L HISTORICAL RESULTS Chloride 111(H) 97 - 110 mmol/L HISTORICAL RESULTS CO2 24 22 - 32 mmol/L HISTORICAL RESULTS A. gap 10 0 - 16 mmol/L HISTORICAL RESULTS Glucose 123 65 - 199 mg/dl HISTORICAL RESULTS BUN 13 8 - 25 mg/dl HISTORICAL RESULTS Creatinine 0.64 0.60 - 1.10 mg/dl HISTORICAL RESULTS Calcium 9.0 8.6 - 10.3 mg/dl HISTORICAL RESULTS Protein, pl 7.0 6.5 - 8.5 g/dl HISTORICAL RESULTS Alb 3.9 3.6 - 5.0 g/dl HISTORICAL RESULTS Bilirubin 0.6 0.3 - 1.1 mg/dl HISTORICAL RESULTS Alk phos 84 38 - 126 Units/L HISTORICAL RESULTS AST 77(H) 11 - 47 Units/L HISTORICAL RESULTS ALT 74(H) 7 - 53 Units/L HISTORICAL RESULTS Plasma 09/04/2012 9:30 PM CDT us Historical Provider LAB BLOOD ORDERABLES Caitlyn l Result Performing Organization Address City/[facility]/ZIP Co de Phone Number HISTORICAL RESULTS * (ABNORMAL) Plasma partial thromboplastin time (PTT) (09/04/2012 9:30 PM CDT) APTT 85.2(H) 25.0 - 37.0 seconds HISTORICAL RESULTS Comment: Interpretive Data Therapeutic heparin range:60.0 - 94.0 sec based on correlation with therapeutic heparin activity range of 0.3 -0.7 Units/mL. Current interpretive data was last revised on 2011. Plasma 09/04/2012 9:30 PM CDT Historical Provider LAB BLOOD ORDERABLES Caitlyn l Result HISTORICAL RESULTS * Plasma prothrombin time (PT) (09/04/2012 9:30 PM CDT) Prothrombin time (PT) 11.4 9.0 - 12.0 seconds HISTORICAL RESULTS INR 1.11 0.90 - 1.20 HISTORIC AL RESULTS Comment: Interpretive Data Inpatient therapeutic ranges* Atrial fibrillation ?2.0-3.0 INR Venous thrombo-embolism ?2.0-3.0 INR Bioprosthetic heart valve ?* Mechanical heart valve, bileaflet or tilting disk,aortic position ? 2.0-3.0 INR All other,or bileaflet or tilting disk, in mitral position ? 2.5-3.5 INR *See the pharmacy resource directory (PHRED) for an updated copy of the Tool Book at [email or web address] Current Interpretive Data was last revised 2011. Plasma 09/04/2012 9:30 PM CDT us Historical Provider LAB BLOOD ORDERABLES Caitlyn l Result HISTORICAL RESULTS * Serum magnesium (09/04/2012 9:30 PM CDT) Magnesium 1.5 1.4 - 2.5 mg/dl HISTORICAL RESULTS Serum 09/04/2012 9:30 PM CDT Historical Provider LAB BLOOD ORDERABLES Caitlyn dominguez Result Performing Organization Address City/State/[facility] Co de Phone Number HISTORICAL RESULTS * (ABNORMAL) Blood cell count (CBC) (09/04/2012 9:30 PM CDT) WBC 4.2 3.8 - 9.8 K/cumm HISTORICAL RESULTS RBC 3.94 3.90 - 5.00 M/cumm HISTORICAL RESULTS Hgb 12.0(L) 12.1 - 15.1 g/dl HISTORICAL RESULTS Hct 34.8(L) 36.1 - 44.3 % HISTORICAL RESULTS MCV 88.4 80.0 - 97.6 fl HISTORICAL RESULTS MCH 30.4 26.7 - 33.7 pg HISTORICAL RESULTS MCHC 34.4 32.7 - 35.5 g/dl HISTORICAL RESULTS Rdw 12.6 11.8 - 14.6 % HISTORICAL RESULTS Platelets 225 140 - 440 K/cumm HISTORICAL RESULTS MPV 9.5 6.8 - 10.4 fl HISTORICAL RESULTS Neutrophils 43.5 38.7 - 74.5 % HISTORICAL RESULTS Lymphocytes 44.4 20.0 - 54.3 % HISTORICAL RESULTS Monos 11.0 4.3 - 13.5 % HISTORICAL RESULTS Eosinophils 0.5 0.0 - 6.0 % HISTORICAL RESULTS Basophils 0.6 0.0 - 3.0 % HISTORICAL RESULTS Neutrophils, abs 1.8 1.8 - 6.6 K/cumm HISTORICAL RESULTS Lymphocytes, abs 1.9 1.2 - 3.3 K/cumm HISTORICAL RESULTS Monocytes, absolute 0.5 0.2 - 1.2 K/cumm HISTORICAL RESULTS Eosinophils, abs 0.0 0.0 - 0.5 K/cumm HISTORICAL RESULTS Basophils, abs 0.0 0.0 - 0.2 K/cumm HISTORICAL RESULTS Blood specimen (specimen) 09/04/2012 9:30 PM CDT Historical Provider LAB BLOOD ORDERABLES Caitlyn l Result HISTORICAL RESULTS * Blood hemoglobin A1C (09/04/2012 9:30 PM CDT) Hgb A1C 5.5 4.0 - 6.0 % HISTORICAL RESULTS Estimated average glucose 111 mg/dl HISTORICAL RESULTS Comment: The ADA recommends reporting an estimated Average Glucose (eAG) with all Hemoglobin A1c results using the equation derived from a study of 507 normal and diabetic adults. ??Minority populations were underrepresented and children were not included. ??(Diabetes Care 31:5080-6070, 2008). ??The eAG is not equivalent to a fasting glucose. Blood specimen (specimen) 09/04/2012 9:30 PM CDT Historical Provider LAB BLOOD ORDERABLES Caitlyn l Result Performing Organization Address City/[facility]/ZIP Co de Phone Number HISTORICAL RESULTS * CHEST RADIOGRAPHY, FRONTAL (AP), LATERAL (09/04/2012 1:27 PM CDT) Anatomical Region Laterality Modality N/A Radiographic Salima ging 09/04/2012 1:27 PM CDT Narrative 09/04/2012 4:35 PM CDT MAGALI JORDAN M.D. JAYDON CARBALLO M.D. FINAL REPORT The radiology attending physician has personally reviewed this study, and has reviewed and/or edited this written report and agrees with it. ACC# ??Date Time ??Exam [id number] Sep 04, 2012 13:27:00 [id number] Chest 2 views Frontl & Lat EXAMINATION: ?? Chest 2 views IMPRESSION: ?The lungs are clear. No pleural effusion or pneumothorax. The cardiomediastinal silhouette is normal. There are bilateral upper quadrant surgical clips. Requested By: BLAKE ROBERTSON M.D. Dictated By: ?? JAYDON CARBALLO M.D. ??on Sep 04 2012 ??1:59P This document has been electronically signed by: MAGALI JORDAN M.D. on Sep 04 2012 ??4:35P Procedure Note Provider, Fidel, - 10/12/2016 MAGALI JORDAN M.D. JAYDON CARBALLO M.D. FINAL REPORT The radiology attending physician has personally reviewed this study, and has reviewed and/or edited this written report and agrees with it. ACC# Date Time Exam [id number] Sep 04, 2012 13:27:00 [id number] Chest 2 views Frontl & Lat EXAMINATION: Chest 2 views IMPRESSION: The lungs are clear. No pleural effusion or pneumothorax. The cardiomediastinal silhouette is normal. There are bilateral upper quadrant surgical clips. Requested By: BLAKE ROBERTSON M.D. Dictated By: JAYDON CARBALLO M.D. on Sep 04 2012 1:59P This document has been electronically signed by: MAGALI JORDAN M.D. on Sep 04 2012 4:35P us Historical Provider IMG XR PROCEDURES Final R esult * (ABNORMAL) Serum lipid panel (09/04/2012 12:50 PM CDT) LDL 118 0 - 129 mg/dl HISTORICAL RESULTS Comment: Interpretive Data Optimal: ? < 100 mg/dL Near Optimal: ?100 - 129 mg/dL Borderline High: ?? 130 - 159 mg/dL High: ?> 160 mg/dL Literature Reference: See Cholesterol Current interpretive data was last revised on 06. Cholesterol 200 0 - 200 mg/dl HISTORICAL RESULTS Comment: Interpretive Data Desirable: ?<200 mg/dL Borderline high: ??200-239 mg/dL High: ? >240 mg/dL Literature Reference: National Cholesterol Education Program (NCEP) Expert Panel on Detection, Evaluation, and Treatment of High Blood Cholesterol in Adults (Adult Treatment Panel III). ??Circulation 2004; 110:227. Current interpretive data was last revised on 2005. Triglycerides 181(H) 0 - 150 mg/dl HISTORICAL RESULTS Comment: Interpretive Data Desirable: ? < 150 mg/dL Borderline High: ? 150 - 199 mg/dL High: ?> 200 mg/dL Literature Reference: See Cholesterol Current interpretive data was last revised on 06. HDL 46 40 - 199 mg/dl HISTORICAL RESULTS Comment: Interpretive Data Less than 40 mg/dL - low; A major risk factor for heart disease. Greater than or equal to 60 mg/dL - High; ??considered protective of heart disease. Literature Reference: See Cholesterol Current interpretive data was last revised on 2008. Non-HDL cholesterol, calculated 154 mg/dl HISTORICAL RESULTS Comment: Interpretive Data When triglycerides are >200 mg/dL, non-HDL C is a secondary target of therapy, with a goal 30 mg/dL higher than the identified LDL-C goal. Reference: ??See Cholesterol Reference. Current interpretive data was last revised 2011. Serum 09/04/2012 12:5 0 PM CDT Blake Robertson MD LAB BLOOD ORDERABLES Final Res ult Performing Organization Address [facility] de Phone Number HISTORICAL RESULTS * Plasma partial thromboplastin time (PTT) (09/04/2012 12:50 PM CDT) APTT 36.8 25.0 - 37.0 seconds HISTORICAL RESULTS Comment: Interpretive Data Therapeutic heparin range:60.0 - 94.0 sec based on correlation with therapeutic heparin activity range of 0.3 -0.7 Units/mL. Current interpretive data was last revised on 2011. Plasma 09/04/2012 12:5 0 PM CDT Blake Robertson MD LAB BLOOD ORDERABLES Final Res ult Performing Organization Address [facility] de Phone Number HISTORICAL RESULTS * (ABNORMAL) Plasma basic metabolic panel (09/04/2012 12:50 PM CDT) Sodium 146(H) 135 - 145 mmol/L HISTORICAL RESULTS K, pl 3.3 3.3 - 4.9 mmol/L HISTORICAL RESULTS Chloride 111(H) 97 - 110 mmol/L HISTORICAL RESULTS CO2 24 22 - 32 mmol/L HISTORICAL RESULTS A. gap 11 0 - 16 mmol/L HISTORICAL RESULTS Glucose 95 65 - 199 mg/dl HISTORICAL RESULTS BUN 13 8 - 25 mg/dl HISTORICAL RESULTS Creatinine 0.76 0.60 - 1.10 mg/dl HISTORICAL RESULTS Calcium 9.2 8.6 - 10.3 mg/dl HISTORICAL RESULTS Plasma 09/04/2012 12:5 0 PM CDT us Blake Robertson MD LAB BLOOD ORDERABLES Final Res ult Performing Organization Address [facility] Co de Phone Number HISTORICAL RESULTS * (ABNORMAL) Serum troponin I (09/04/2012 12:50 PM CDT) Troponin I 1.71(C) 0.00 - 0.24 ng/ml HISTORICAL RESULTS Comment: Critical result called to Jagjit ARTEAGA) on 09/04/2012 15:03:16 CDT by lmr. Informed the caregiver that the Troponin result is being retested. If the repeated result does not match the original, they will be notified. Interpretive Data Normal Range: <0.07 ng/mL: Negative 0.07 - 0.24 ng/mL: Elevated, may be consistent with Myocardial Injury/Ischemia but is nondiagnostic and of equivocal significance. Consider obtaining additional Troponin values. (JAM Karey Cardiol 2000; 36:959. Circulation 2000; 102: 1193., 2002; 106: 1893., 2003: 108: 1393) Greater than or equal to 0.25 ng/mL: Positive Troponin, suggest establishing rising or falling pattern and evidence of Cardiac Ischemia for consideration of Myocardial Infarction. Current interpretive data was last revised on 2007. Serum 09/04/2012 12:5 0 PM CDT us Blake Robertson MD LAB BLOOD ORDERABLES Final Res ult Performing Organization Address [facility] Co de Phone Number HISTORICAL RESULTS * Plasma prothrombin time (PT) (09/04/2012 12:50 PM CDT) Prothrombin time (PT) 10.6 9.0 - 12.0 seconds HISTORICAL RESULTS INR 1.04 0.90 - 1.20 HISTORIC AL RESULTS Comment: Interpretive Data Inpatient therapeutic ranges* Atrial fibrillation ?2.0-3.0 INR Venous thrombo-embolism ?2.0-3.0 INR Bioprosthetic heart valve ?* Mechanical heart valve, bileaflet or tilting disk,aortic position ? 2.0-3.0 INR All other,or bileaflet or tilting disk, in mitral position ? 2.5-3.5 INR *See the pharmacy resource directory ([employer]) for an updated copy of the Tool Book at [email or web address] Current Interpretive Data was last revised 2011. Plasma 09/04/2012 12:5 0 PM CDT us Blake Robertson MD LAB BLOOD ORDERABLES Final Res ult HISTORICAL RESULTS * Blood cell count (CBC) (09/04/2012 12:50 PM CDT) Pathologist [facility] WBC 5.1 3.8 - 9.8 K/cumm HISTORICAL RESULTS RBC 4.28 3.90 - 5.00 M/cumm HISTORICAL RESULTS Hgb 12.8 12.1 - 15.1 g/dl HISTORICAL RESULTS Hct 38.1 36.1 - 44.3 % HISTORICAL RESULTS MCV 88.9 80.0 - 97.6 fl HISTORICAL RESULTS MCH 29.9 26.7 - 33.7 pg HISTORICAL RESULTS MCHC 33.6 32.7 - 35.5 g/dl HISTORICAL RESULTS Rdw 12.6 11.8 - 14.6 % HISTORICAL RESULTS Platelets 217 140 - 440 K/cumm HISTORICAL RESULTS MPV 9.6 6.8 - 10.4 fl HISTORICAL RESULTS Neutrophils 61.0 38.7 - 74.5 % HISTORICAL RESULTS Lymphocytes 25.7 20.0 - 54.3 % HISTORICAL RESULTS Monos 12.5 4.3 - 13.5 % HISTORICAL RESULTS Eosinophils 0.3 0.0 - 6.0 % HISTORICAL RESULTS Basophils 0.5 0.0 - 3.0 % HISTORICAL RESULTS Neutrophils, abs 3.1 1.8 - 6.6 K/cumm HISTORICAL RESULTS Lymphocytes, abs 1.3 1.2 - 3.3 K/cumm HISTORICAL RESULTS Monocytes, absolute 0.6 0.2 - 1.2 K/cumm HISTORICAL RESULTS Eosinophils, abs 0.0 0.0 - 0.5 K/cumm HISTORICAL RESULTS Basophils, abs 0.0 0.0 - 0.2 K/cumm HISTORICAL RESULTS Blood specimen (specimen) 09/04/2012 12:50 PM CDT Result [facility] Blake Robertson MD LAB BLOOD ORDERABLES Final Res ult Performing Organization Address City/State/[facility] Co de Phone Number HISTORICAL RESULTS * ELECTROCARDIOGRAPHY (ECG) (09/04/2012) Narrative 09/04/2012 Ordered by an unspecified provider. Result [facility] Historical Provider ECG ORDERABLES Final Res ult * ELECTROCARDIOGRAPHY (ECG) (09/04/2012) Narrative 09/04/2012 Ordered by an unspecified provider. Result [facility] Provider ECG ORDERABLES Final Res ult * ELECTROCARDIOGRAPHY (ECG) (09/04/2012) Narrative 09/04/2012 Ordered by an unspecified provider. Result [facility] Provider ECG ORDERABLES Final Res ult * ELECTROCARDIOGRAPHY (ECG) (09/04/2012) Narrative 09/04/2012 Ordered by an unspecified provider. Result [facility] Historical Provider ECG ORDERABLES Final Res ult documented in this encounter Visit Diagnoses Diagnosis Acute subendocardial infarction, initial episode of care (HCC) Acute myocardial infarction, subendocardial infarction, initial episode of care Acute posthemorrhagic anemia Pulmonary collapse Coronary atherosclerosis of unga coronary artery Other and unspecified hyperlipidemia Cough Elevation of level of transaminase and lactic acid dehydrogenase (LDH) Personal history of transient ischemic attack (TIA) and cerebral infarction without residual deficit Esophageal reflux Other acute postoperative pain Other iatrogenic hypotension Hypopotassemia Other specified cardiac dysrhythmias documented in this encounter
--- OUTSIDE RECORDS SUMMARY | 2024-06-12 04:01 | XMS_ITS | Encounter Summary ---
Author Organization [facility] Facility Care Team Providers Care Jewel Hole Driller Name Role Phone Unavailable Primary Care Provider Unavailabl e Encounter Details Date Type Department Care Team (Late st Contact Info) Description 09/04/2015 - 09/04/2015 11:59 PM CDT Hospital Encounter [facility] Sami Johnson MD [address] [address] Encounter for general adult medical examination without abnormal findings; Essential (primary) hypertension Social History Tobacco Use Types Packs/Day Years Used Date Smoking Tobacco: Never Assessed Comments Unknown Sex and Gender Information Value Date Recorded Sex Assigned at Not on file Legal Sex 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 >240 mg/dL Literature Reference: National Cholesterol Education Program (NCEP) Expert Panel on Detection, Evaluation, and Treatment of High Blood Cholesterol in Adults (Adult Treatment Panel III). ??Circulation 2004; 110:227. Current interpretive data was last revised on 2005. HDL 66 40 - 199 mg/dl HISTORICAL RESULTS Comment: Interpretive Data Less than 40 mg/dL - low; A major risk factor for heart disease. Greater than or equal to 60 mg/dL - High; ??considered protective of heart disease. Literature Reference: See Cholesterol Current interpretive data was last revised on 2008. LDL 87 0 - 129 mg/dl HISTORICAL RESULTS Comment: Interpretive Data Optimal: ? < 100 mg/dL Near Optimal: ?100 - 129 mg/dL Borderline High: ?? 130 - 159 mg/dL High: ?> 160 mg/dL Literature Reference: See Cholesterol Current interpretive data was last revised on 06. Non-HDL cholesterol, calculated 113 mg/dl HISTORICAL RESULTS Comment: Interpretive Data When triglycerides are >200 mg/dL, non-HDL C is a secondary target of therapy, with a goal 30 mg/dL higher than the identified LDL-C goal. Reference: ??See Cholesterol Reference. Current interpretive data was last revised 2011. Triglycerides 129 0 - 150 mg/dl HISTORICAL RESULTS Comment: Interpretive Data Desirable: ? < 150 mg/dL Borderline High: ? 150 - 199 mg/dL High: ?> 200 mg/dL Literature Reference: See Cholesterol Current interpretive data was last revised on 06. Serum 09/04/2015 5:40 PM CDT us Sami Stafford MD LAB BLOOD ORDERABLES Final Re sult HISTORICAL RESULTS * Plasma basic metabolic panel (09/04/2015 5:40 PM CDT) Sodium 142 135 - 145 mmol/L HISTORICAL RESULTS K, pl 4.5 3.3 - 4.9 mmol/L HISTORICAL RESULTS Chloride 105 97 - 110 mmol/L HISTORICAL RESULTS CO2 28 22 - 32 mmol/L HISTORICAL RESULTS A. gap 9 0 - 16 mmol/L HISTORICAL RESULTS Glucose 90 70 - 199 mg/dl HISTORICAL RESULTS BUN 16 8 - 25 mg/dl HISTORICAL RESULTS Creatinine 0.80 0.60 - 1.10 mg/dl HISTORICAL RESULTS Calcium 10.1 8.6 - 10.3 mg/dl HISTORICAL RESULTS Plasma 09/04/2015 5:40 PM CDT us Sami Stafford MD LAB BLOOD ORDERABLES Final Re sult HISTORICAL RESULTS * DISCHARGE LABORATORY CUMULATIVE REPORT (09/04/2015) Narrative 09/04/2015 Ordered by an unspecified provider. us Historical Provider LAB BLOOD ORDERABLES Caitlyn l Result documented in this encounter Visit Diagnoses Diagnosis Encounter for general adult medical examination without abnormal findings Essential (primary) hypertension Unspecified essential hypertension documented in this encounter
--- OUTSIDE RECORDS SUMMARY | 2024-06-12 04:01 | XMS_ITS | Encounter Summary ---
Author Organization [facility] Healthcare Address [address] [place] [address] Care Team Providers Care Water Conservation Specialist Name Role Phone Cristian Lign MD Primary Care Prov ider Encounter Details Date Type Department Care Team (Late st Contact Info) Description 05/10/2017 12:49 PM STAFF INTERPRETER - 05/10/2017 8:36 PM STAFF INTERPRETER Emergency [facility] Emergency Department [address] [place] [address] Unknown, Notinfile Discharge Disposition: Discharge to home or self care Social History Tobacco Use Types Packs/Day Years Used Date Smoking Tobacco: Never Assessed Comments Unknown Sex and Gender Information Value Date Recorded Sex Assigned at Not on file Legal Sex Female 7:12 AM STAFF INTERPRETER Gender Identity Female 02/07/2021 4:33 PM CDT [...] 09/23/2012 12/10/2017 documented as of this encounter Discharge Disposition Disposition Code Departure Means Destination Discharge to home or self care documented in this encounter Plan of Treatment Not on file documented as of this encounter Procedures Procedure Name Priority Date/Time Associated Diagnosis Comments CT CHEST W CONTRAST Routine 05/10/2017 1 0:48 PM STAFF INTERPRETER XR CHEST PA LATERAL 2 VIEWS Routine 05/10/2017 8:01 PM STAFF INTERPRETER TROPONIN I STAT 05/10/2017 7:19 PM STAFF INTERPRETER URINALYSIS AND REFLEX TO MICROSCOPIC STAT 05/10/2017 5:16 PM STAFF INTERPRETER PRO B-TYPE NATRIURETIC PEPTIDE STAT 05/10/2017 4:07 PM STAFF INTERPRETER DIFFERENTIAL AUTO STAT 05/10/2017 2:2 9 PM STAFF INTERPRETER CBC WITH AUTO DIFFERENTIAL STAT 05/10/2017 2:29 PM STAFF INTERPRETER TROPONIN I STAT 05/10/2017 2:29 PM STAFF INTERPRETER BASIC METABOLIC PANEL STAT 05/10/2017 2:29 PM STAFF INTERPRETER DISCHARGE LABORATORY CUMULATIVE REPORT 05/10/2017 12:00 AM STAFF INTERPRETER documented in this encounter Results * CT Chest W Contrast (05/10/2017 10:48 PM STAFF INTERPRETER) Anatomical Region Laterality Modality Body N/A Computed Tomogra phy 05/10/2017 10:4 8 PM STAFF INTERPRETER Narrative 05/10/2017 11:14 PM STAFF INTERPRETER SHIRA UGALDE M.D. FINAL REPORT ACC# ??Date Time ??Exam [id number] May 10, 2017 16:48:[address] Chest with contrast EXAMINATION: ??CT of the chest with contrast TECHNIQUE: CT of the chest was performed following the uneventful administration of 90 mL of Optiray 350 intravenous contrast according to the pulmonary embolism protocol. ?? HISTORY: Chest pain. COMPARISON: None. FINDINGS: There are postsurgical changes of median sternotomy. ??The lungs are clear without focal lung consolidation, pneumothorax or pleural effusion. ??Central airways are widely patent. ??There is trace debris in the esophagus, possibly the result of esophageal reflux. There is extensive three-vessel coronary artery disease. ??No pericardial effusion is seen. ??No central, segmental or subsegmental pulmonary embolism. ??The aorta is of normal course and caliber with moderate atherosclerosis. ??There are exophytic cysts in the left kidney. ??Patient is post cholecystectomy. ??No suspicious lytic or blastic osseous lesion or acute fracture is seen. IMPRESSION: ??1. No pulmonary embolism. 2. No other acute abnormality in the chest on CT. Electronically signed by: Shira Ugalde M.D. Requested By: SYDNEY DAVEY TAY [facility] Dictated By: ?? SHIRA UGALDE M.D. ??on May 10 2017 ??5:12P This document has been electronically signed by: SHIRA UGALDE M.D. on May 10 2017 ??5:12P [id number] UGALDE M.D. FINAL REPORT Attending: ??UNKNOWN, ??NOTINFILE Requesting: ??PETAR, ??SYDNEY Requesting Fax: ?? Attending Fax: ?? Attending ID: ??[id number] Requesting ID: ??[id number] Report To 1 ID: ??[id number] ? Report To 1 Name: ??, ?? Report To 1 FAX: ?? NextGen Order #: ?? Procedure Note Miscellaneous, Not In File - 05/10/2017 SHIRA UGALDE M.D. FINAL REPORT ACC# Date Time Exam [id number] May 10, 2017 16:48:[address] Chest with contrast EXAMINATION: CT of the chest with contrast TECHNIQUE: CT of the chest was performed following the uneventful administration of 90 mL of Optiray 350 intravenous contrast according to the pulmonary embolism protocol. HISTORY: Chest pain. COMPARISON: None. FINDINGS: There are postsurgical changes of median sternotomy. The lungs are clear without focal lung consolidation, pneumothorax or pleural effusion. Central airways are widely patent. There is trace debris in the esophagus, possibly the result of esophageal reflux. There is extensive three-vessel coronary artery disease. No pericardial effusion is seen. No central, segmental or subsegmental pulmonary embolism. The aorta is of normal course and caliber with moderate atherosclerosis. There are exophytic cysts in the left kidney. Patient is post cholecystectomy. No suspicious lytic or blastic osseous lesion or acute fracture is seen. IMPRESSION: 1. No pulmonary embolism. 2. No other acute abnormality in the chest on CT. Electronically signed by: Shira Ugalde M.D. Requested By: SYDNEY DAVEY [facility] Dictated By: SHIRA UGALDE M.D. on May 10 2017 5:12P This document has been electronically signed by: SHIRA UGALDE M.D. on May 10 2017 5:12P [id number] UGALDE M.D. FINAL REPORT Attending: REBECCA GRECO Requesting: SYDNEY DAVEY Requesting Fax: Attending Fax: Attending ID: [id number] Requesting ID: [id number] Report To 1 ID: [id number] Report To 1 Name: , Report To 1 FAX: NextGen Order #: Sydney Davey SEAMER IMG CT PROCEDURES Caitlyn l Result * XR Chest Pa Lateral 2 Views (05/10/2017 8:01 PM STAFF INTERPRETER) Anatomical Region Laterality Modality Body, Chest N/A Radiographic Salima ging 05/10/2017 8:01 PM STAFF INTERPRETER Narrative 05/10/2017 8:21 PM STAFF INTERPRETER Penelope HILLMAN M.D. FINAL REPORT The radiology attending physician has personally reviewed this study, and has reviewed and/or edited this written report and agrees with it. ACC# ??Date Time ??Exam [id number] May 10, 2017 14:01:00 81017 Chest 2 views Frontl ??and ??Lat EXAMINATION: ??2 view chest radiograph HISTORY: Chest pain and shortness of breath IMPRESSION: ??Comparison is made to chest radiograph dated 10/05/2012. Median sternotomy wires are properly aligned and intact. ??Coronary artery bypass graft markers. ??Surgical clips project over the upper abdomen. The lungs are clear with no pneumonia, pulmonary edema, pleural effusion, or pneumothorax. ??Heart size and mediastinal contours are unchanged. Electronically signed by: Shira Ugalde M.D. Requested By: BLAKE MILLER M.D. Dictated By: ?? MARIO WHARTON M.D. ??on May 10 2017 ??2:11P This document has been electronically signed by: SHIRA UGALDE M.D. on May 10 2017 ??2:19P [id number] HILLMAN M.D. FINAL REPORT The radiology attending physician has personally reviewed this study, and has reviewed and/or edited this written report and agrees with it. Attending: ??UNKNOWN, ??NOTINFILE Requesting: ??PAUL, ??BLAKE Requesting Fax: ?? Attending Fax: ?? Attending ID: ??[id number] Requesting ID: ??[id number] Report To 1 ID: ??[id number] ? Report To 1 Name: ??, ?? Report To 1 FAX: ?? NextGen Order #: ?? Procedure Note Miscellaneous, Not In File - 05/10/2017 Penelope HILLMAN M.D. FINAL REPORT The radiology attending physician has personally reviewed this study, and has reviewed and/or edited this written report and agrees with it. ACC# Date Time Exam [id number] May 10, 2017 14:01:00 [id number] Chest 2 views Frontl and Lat EXAMINATION: 2 view chest radiograph HISTORY: Chest pain and shortness of breath IMPRESSION: Comparison is made to chest radiograph dated 10/05/2012. Median sternotomy wires are properly aligned and intact. Coronary artery bypass graft markers. Surgical clips project over the upper abdomen. The lungs are clear with no pneumonia, pulmonary edema, pleural effusion, or pneumothorax. Heart size and mediastinal contours are unchanged. Electronically signed by: Shira Ugalde M.D. Requested By: BLAKE MILLER M.D. Dictated By: MARIO WHARTON M.D. on May 10 2017 2:11P This document has been electronically signed by: SHIRA UGALDE M.D. on May 10 2017 2:19P [id number] HILLMAN M.D. FINAL REPORT The radiology attending physician has personally reviewed this study, and has reviewed and/or edited this written report and agrees with it. Attending: REBECCA GRECO Requesting: BLAKE MILLER Requesting Fax: Attending Fax: Attending ID: [id number] Requesting ID: [id number] Report To 1 ID: [id number] Report To 1 Name: , Report To 1 FAX: NextGen Order #: [id number] Blake Miller MD IMG XR PROCEDURES Final Result * Troponin I (05/10/2017 7:19 PM STAFF INTERPRETER) Troponin I <0.03 0.00 - 0.03 ng/mL [facility] Comment: Interpretive Data Serial determinations are recommended for the diagnosis of myocardial infarction (Third [place] Definition of Myocardial Infarction. ??J Am Karey Cardiol 2012;60:1581-98). Current interpretive data was last revised on 13. Blood specimen (specimen) 05/10/2017 7:19 PM STAFF INTERPRETER 05/10/2017 7:23 PM STAFF INTERPRETER us Mike Castellanos MD PhD LAB BLOOD ORDERABLES Final Result [facility] Department [place] [address] * Urinalysis reflex to microscopic (05/10/2017 5:16 PM STAFF INTERPRETER) Pathologist [facility] Color, ur Straw Yellow [facility] Clarity, ur Clear Clear [facility] Specific gravity, ur 1.018 1.003 - 1.030 [facility] pH, ur 8.0 5.0 - 8.0 [facility] Albumin, ur Negative Trace [facility] Glucose, ur ql Negative Negative [facility] Ketones, ur Negative Negative [facility] Bilirubin, ur Negative Negative [facility] Blood, ur Negative Negative [facility] Urobilinogen, ur <2.0 <2.0 mg/dL [facility] Nitrites, ur Negative Negative [facility] Leukocyte esterase, ur Negative Negative [facility] Urine 05/10/2017 5:16 PM STAFF INTERPRETER 05/10/2017 5:20 PM STAFF INTERPRETER Sydney Davey SEAMER LAB URINE ORDERABLES F inal Result Performing Organization Address City/State/[facility] Co de Phone Number [facility] Department [place] [address] * (ABNORMAL) Pro B-type natriuretic peptide (05/10/2017 4:07 PM STAFF INTERPRETER) [facility] NT-proBNP 547(H) 0 - 299 pg/mL [facility] Comment: Interpretive Data Dyspnea in Acute Care Setting All ages: ?< 300 pg/mL, acute heart failure unlikely <50 yrs: ? > or = 300 pg/mL and < or = 450 pg/mL, further ? investigation warranted ? > 450 pg/mL, acute heart failure likely 50-74 yrs: ? > or = 300 and < or = 900 pg/mL, further ? investigation warranted ? > 900 pg/mL, acute heart failure likely > or = 75 yrs: 450-1800 pg/mL, further investigation warranted ? > 1800 pg/mL, acute heart failure likely Non-acute Setting <75 yrs: ? < 125 pg/mL, rules out heart failure ? > or = 125 pg/mL, further investigation warranted > or = 75 yrs: < 450 pg/mL, rules out heart failure ? > or = 450 pg/mL, further investigation warranted Knowledge of each individual patient? s NT-proBNP range may be more useful than using similar cut-points for every patient. Please note that marked elevations in NT-proBNP levels may be observed in states other than left ventricular congestive failure, including: acute coronary syndromes, right heart strain/failure (including pulmonary embolism and cor pulmonale), critical illness, renal failure, as well as increasing with advancing age. References: Antony REEVES et.al. ??Eur Heart J. 2006: 27: 330-337. Cody RW, Stephanie AM. J AM Karey Cardiol: Cardiovasc Imag. 2009; 2: 216-225. Current interpretive data was last revised 2017. Blood specimen (specimen) 05/10/2017 4:07 PM STAFF INTERPRETER 05/10/2017 4:07 PM STAFF INTERPRETER Sydney Davey SEAMER LAB BLOOD ORDERABLES F inal Result [facility] Department [place] [address] * Troponin I (05/10/2017 2:29 PM STAFF INTERPRETER) Troponin I <0.03 0.00 - 0.03 ng/mL [facility] Comment: Interpretive Data Serial determinations are recommended for the diagnosis of myocardial infarction (Third [place] Definition of Myocardial Infarction. ??J Am Karey Cardiol 2012;60:1581-98). Current interpretive data was last revised on 13. Blood specimen (specimen) 05/10/2017 2:29 PM STAFF INTERPRETER 05/10/2017 2:43 PM STAFF INTERPRETER Blake Miller MD LAB BLOOD ORDERABLES Final Res ult [facility] [place] [address] * Basic metabolic panel (05/10/2017 2:29 PM STAFF INTERPRETER) Sodium 140 135 - 145 mmol/L [facility] Potassium, pl 4.1 3.3 - 4.9 mmol/L [facility] Chloride 105 97 - 110 mmol/L [facility] CO2 26 22 - 32 mmol/L [facility] BUN 14 8 - 25 mg/dL [facility] Glucose 107 70 - 199 mg/dL [facility] Comment: Interpretive Data Fasting glucose >/= 126 [...] Current interpretive data was last revised 2017. Creatinine 0.90 0.60 - 1.10 mg/dL [facility] Calcium 10.1 8.5 - 10.3 mg/dL [facility] Anion gap 9 2 - 15 mmol/L [facility] Blood specimen (specimen) 05/10/2017 2:29 PM STAFF INTERPRETER 05/10/2017 2:43 PM STAFF INTERPRETER Blake Miller MD LAB BLOOD ORDERABLES Final Res ult Performing Organization Address City/[facility]/ZIP Co de Phone Number [facility] Department [place] [address] * Differential, auto (05/10/2017 2:29 PM STAFF INTERPRETER) Neutrophil pct 68.3 % [facility] Imm gran pct 0.2 % [facility] Lymphocyte pct 23.4 % [facility] Monocyte pct 6.4 % [facility] Eosinophil pct 1.1 % [facility] Basophil pct 0.6 % [facility] Neutrophil abs 3.61 1.70 - 6.50 K/cumm [facility] Imm gran abs 0.01 0.00 - 0.10 K/cumm [facility] Lymphocyte abs 1.24 0.80 - 3.30 K/cumm [facility] Monocyte abs 0.34 0.20 - 0.80 K/cumm [facility] Eosinophil abs 0.06 0.00 - 0.50 K/cumm [facility] Basophil abs 0.03 0.00 - 0.10 K/cumm [facility] Blood specimen (specimen) 05/10/2017 2:29 PM STAFF INTERPRETER 05/10/2017 2:43 PM STAFF INTERPRETER us Blake Miller MD LAB BLOOD ORDERABLES Final Res ult [facility] Department [place] [address] * (ABNORMAL) CBC with auto differential (05/10/2017 2:29 PM STAFF INTERPRETER) WBC 5.29 3.80 - 9.90 K/cumm [facility] RBC 3.92 3.90 - 5.20 M/cumm [facility] Hgb 11.9 11.9 - 15.5 g/dL [facility] Hct 37.0 35.6 - 45.5 % [facility] MCV 94.4 81.3 - 96.4 fL [facility] MCH 30.4 27.1 - 33.3 pg [facility] MCHC 32.2(L) 32.3 - 35.7 g/dL [facility] RDW CV 11.9 11.1 - 14.9 % [facility] RDW SD 41.5 35.7 - 48.1 fL [facility] Plt 221 150 - 400 K/cumm [facility] MPV 11.0 9.1 - 12.3 fL [facility] NRBC 0.0 0.0 - 0.2 % [facility] NRBC abs 0.00 0.00 - 0.01 K/cumm [facility] Blood specimen (specimen) 05/10/2017 2:29 PM STAFF INTERPRETER 05/10/2017 2:43 PM STAFF INTERPRETER us Blake Miller MD LAB BLOOD ORDERABLES Final Res ult Performing Organization Address City/State/[facility] Co de Phone Number [facility] [place] [address] * DISCHARGE LABORATORY CUMULATIVE REPORT (05/10/2017 12:00 AM STAFF INTERPRETER) Narrative 05/10/2017 12:00 AM STAFF INTERPRETER Ordered by an unspecified provider. us Historical Provider LAB BLOOD ORDERABLES Caitlyn l Result documented in this encounter Visit Diagnoses Not on filedocumented in this encounter Care Teams Water Conservation Specialist Relationship Specialty Start Date End Date Cristian Ling MD [address] [place] [address] PCP - General 10/16/16 documented as of this encounter
--- OUTSIDE RECORDS SUMMARY | 2024-06-12 04:01 | XMS_ITS | Encounter Summary ---
Author Organization [facility] Address [address] [place] [address] Phone Care Team Providers Care Assembler Bonding Name Role Phone Cristian Ling MD Primary Care Prov ider Reason for Visit * Cardiology (Routine) - Closed Specialty Diagnoses / Procedures Referred By Contac t Referred To Contact Cardiology Diagnoses Appt Comment: 6MO F/U Procedures RETURN Sami Stafford MD Phone: tel: fax: Sami Stafford MD [address] [facility] [address] [place] [address] Phone: tel: fax: Referral ID Status Reason Start Date Expiration Date Visits Re quested Visits Authorized [id number] Closed 12/05/2017 03/15/2018 3 3 Encounter Details Date Type Department Care Team (Late st Contact Info) Description 12/10/2017 11:45 AM CDT Office Visit [facility] Cardiology [address] [facility] [address] 8th [place] [address] [place] [address] Sami Stafford MD [address] [facility] [address] [place] [address] Chronic coronary artery disease (Primary Dx); Essential hypertension Social History Tobacco Use Types Packs/Day Years Used Date Smoking Tobacco: Never Smokeless Tobacco: Never Comments Unknown Sex and Gender Information Value Date Recorded Sex Assigned at Not on file Legal Sex Female 7:12 AM COBBLER SOLE Gender Identity Female 02/07/2021 4:33 PM CDT Sexual Orientation Straight 02/07/2021 4: 33 PM CDT documented as of this encounter Last Filed Vital Signs Vital Sign Reading Time Taken Comments Blood Pressure 134/82 12/10/2017 12:20 PM CDT Pulse 68 12/10/2017 12:20 PM CDT Temperature 36.8 ??C (98.2 ??F) 12/10/2017 12:20 PM C DT Respiratory Rate - - Oxygen Saturation 99% 12/10/2017 12:20 PM CDT Inhaled Oxygen Concentration - - Weight 76.8 kg (169 lb 6.4 oz) 12/10/2017 12:20 PM CDT Height 162.6 cm (5' 4.02 ) 12/10/2017 12:20 PM C DT Body Mass Index 29.06 12/10/2017 12:20 PM CDT documented in this encounter Patient Instructions * Patient Instructions* Sami Stafford MD - 12/10/2017 11:45 AM CDT Keep up the good work with rehab. Try to incorporate light hand weights into your exercise. Otherwise, continue current medications. Call with any concerns. documented in this encounter Progress Notes * Sami Stafford MD - 12/10/2017 11:45 AM CDT Patient Name: Tiera Lobato : 1945 Date of Service: 12/10/2017 DIAGNOSES: 1. Coronary artery disease with myocardial [...] We had the pleasure of seeing Tiera J Barberis today for follow-up. She is a 72 y.o. female witha history of CAD, HTN, and the above diagnoses. She underwent a right TKR 10/01, and had been doing well until about a month ago, when she twisted in an abnormal way in her bathroom and broke her back. This has been managed non-operatively. She is now in a brace, which she will be wearing for another month. While at rehab she had an episode of elevated BP and chest tingling, in the setting of significant pain and constipation from pain medication use. She was taken to a hospital and had a pharmacologic stress test and echo which were unremarkable. She has not had chest pain since then. Her blood pressure has also been controlled since then.Otherwise things have been stable at home. Interactions with her , who has dementia, continue to be difficult, but she has coped by trying to avoid him at home. Current Outpatient Prescriptions: ??? acetaminophen (TYLENOL) 325 mg tablet, TAKE 1 TO 2 TABLETS EVERY 6 HOURS NEEDED., Disp: , Rfl: ??? aspirin 81 mg tablet, daily., Disp: , Rfl: ??? atorvastatin (LIPITOR) 80 mg tablet, TAKE 1 TABLET AT BEDTIME., Disp: , Rfl: ??? calcitonin (MIACALCIN) 200 unit/actuation nasal spray, INJECT 1 SPRAY IN 1 NOSTRIL ONCE DAILY ALTERNATING NOSTRILS, Disp: , Rfl: 0 ??? calcium carbonate-vitamin D3 500 mg(1,250mg) -400 unit chewable tablet, Take 1 tablet by mouth daily., Disp: , Rfl: ??? cholecalciferol (VITAMIN D-3) 1,000 unit tablet, Take 1,000 Units by mouth daily., Disp: , Rfl: ??? cyanocobalamin (Vitamin B-12) 1,000 mcg tablet, Take 1,000 mcg by mouth daily., Disp: , Rfl: ??? docusate sodium (COLACE) 100 mg capsule, TAKE 1 CAPSULE TWICE DAILY NEEDED., Disp: , Rfl: ??? LINZESS 145 mcg capsule, Take by mouth daily., Disp: , Rfl: 2 ??? metoprolol XL (TOPROL XL) 25 mg 24 hr tablet, 12.5 mg daily. , Disp: , Rfl: ??? multivitamin no.44-vit D3-K 1,000-800 unit-mcg capsule, daily., Disp: , Rfl: ??? NON-ASPIRIN EXTRA STRENGTH 500 mg tablet, Take by mouth every 8 (eight) hours as needed., Disp:, Rfl: 0 ??? omeprazole (PriLOSEC) 20 mg capsule, daily., Disp: , Rfl: Allergies Allergen Reactions ??? Codeine Hives and Shortness of breath ??? Latex Itching ? ? Tramadol Nausea & Vomiting Physical Exam: BP 134/82 (BP Location: Left arm, Patient Position: Sitting) Pulse 68 Temp 36.8 ??C (98.2 ??F) (Oral) Ht 162.6 cm (5' 4.02 ) Wt 76.8 kg (169 lb 6.4 oz) SpO2 99% BMI 29.06 kg/m?? Wt Readings from Last 3 Encounters: 12/10/17 76.8 kg (169 lb 6.4 oz) 06/11/17 79.8 kg (176 lb 0.2 oz) 10/23/16 81.9 kg (180 lb 7.9 oz) General: Well appearing older white woman, no pain or distress, well nourished Eyes: Extraocular muscles intact, Conjuctiva Clear, sclerae anicteric Neck: Supple. No goiter. No jugular venous distention. Respiratory: Clear to ausculation bilaterally; no wheezing/rales/rhonchi; respirations unlabored Cardiovascular: Normal rate and regular rhythm, normal S1 and S2. No S3 or S4. No murmurs or rubs. Carotid upstrokes brisk bilaterally and without bruits. Abdomen: soft, non-tender, no palpable masses, no hepatosplenomegaly Extremities: no cyanosis, clubbing, or edema Musculoskeletal: no obvious joint deformities. Wearing brace, tenderness across lower back. Skin: no obvious rash or bruising Psychiatric: normal affect and mood Neurologic: awake/alert, no focal deficits Results: I have personally reviewed the following: Lab Results Component Value Date SODIUM 140 05/10/2017 POTASSIUM 4.1 05/10/2017 BUNSER 14 05/10/2017 BUNSER 16 09/04/2015 BUNSER 13 11/06/2012 CREATININE 0.90 05/10/2017 CREATININE 0.80 09/04/2015 CREATININE 0.77 11/06/2012 Lab Results Component Value Date CHOL 179 09/04/2015 CHOL 200 09/04/2012 Lab Results Component Value Date HDL 66 09/04/2015 HDL 46 09/04/2012 Lab Results Component Value Date LDL 87 09/04/2015 LDL 118 09/04/2012 Lab Results Component Value Date TRIG 129 09/04/2015 TRIG 181 (H) 09/04/2012 Assessment/Plan Tiera Lobato is a 72 y.o. female with the following issues: 1. Chronic coronary artery disease 2. Essential hypertension 1. CAD status post bypass surgery: we will continue aspirin and atorvastatin. She reports that a recent stress test was negative. No recent angina. 2. HTN: well-controlled in clinic today. We will continue her current regimen of metoprolol-XL. I will have her return to the clinic in 1 year. Thank you for allowing me to participate in Ms. Tiera Lobato's care. Please feel free to contact my office with any questions or if I may be of further assistance. Sincerely, Agustina Valles MD metal fabrication supervisor 12/10/2017 I have seen and examined Tiera Lobato on 12/10/2017. I agree with the findings and plan of care as documented in the resident's/fellow's note. Sami Stafford MD, MPHS, FACC Toterpigment pumper Cardiovascular Division [facility] in [facility] --- Please note: This note was generated in part using voice-recognition software and may contain public accountant errors. documented in this encounter Plan of Treatment Not on file documented as of this encounter Visit Diagnoses Diagnosis Chronic coronary artery disease- Primary Coronary atherosclerosis of unspecified type of vessel, [place] or graft Essential hypertension Unspecified essential hypertension documented in this encounter Discontinued Medications Medication Sig Discontinue Reason Start Date End Da te ondansetron (ZOFRAN) 4 mg tablet every 6 hours. 09/23/2012 12/10/2017 clopidogrel (PLAVIX) 75 mg tablet daily. 09/21/2012 12/10/2017 documented as of this encounter Historical Medications * This list may reflect changes made after this encounter. calcium carbonate-vitamin D3 500 mg(1,250mg) -400 unit chewable tablet Take 1 tablet by mouth daily 3 cyanocobalamin (Vitamin B-12) 1,000 mcg tablet Take 2 tablets (2,000 mcg total) by mouth daily 4 cholecalciferol (VITAMIN D-3) 1,000 unit tablet Take 1 tablet (1,000 Units total) by mouth daily 4 LINZESS 145 mcg capsule Take by mouth daily. 2 11/25/2017 3 calcitonin (MIACALCIN) 200 unit/actuation nasal sprayIndications:P ost-Menopausal Osteoporosis INJECT 1 SPRAY IN 1 NOSTRIL ONCE DAILY ALTERNATING NOSTRILS 0 11/05/2017 9 NON-ASPIRIN EXTRA STRENGTH 500 mg tablet Take by mouth every 8 (eight) hours as needed. 0 10/15/2017 0 acetaminophen (TYLENOL) 325 mg tablet 09/21/2012 3 metoprolol XL (TOPROL-XL) 25 mg extended release tablet 0.5 tablets (12.5 mg total) daily 09/21/2012 2 omeprazole (PriLOSEC) 20 mg capsule daily. 0 clopidogrel (PLAVIX) 75 mg tablet daily. 09/21/2012 8 ondansetron (ZOFRAN) 4 mg tablet every 6 hours. 09/23/2012 8 multivitamin no.44-vit D3-K 1,000-800 unit-mcg capsule daily. 3 atorvastatin (LIPITOR) 80 mg tablet TAKE 1 TABLET AT BEDTIME. 09/21/2012 3 docusate sodium (COLACE) 100 mg capsuleIndications :constipation TAKE 1 CAPSULE TWICE DAILY NEEDED. 09/21/2012 3 aspirin 81 mg tablet daily. 09/21/2012 3 added in this encounter Care Teams Assembler Bonding Relationship Specialty Start Date End Date Cristian Ling MD [address] [place] [address] PCP - General 10/16/16 documented as of this encounter
--- OUTSIDE RECORDS SUMMARY | 2024-06-12 04:27 | XMS_ITS | Clinical Summary ---
Author Organization [facility] Address [facility] [place] [address] Care Team Providers Care Car Deliverer Name Role Phone Cristian Ling MD Primary [...] Plan (12/01/2023 12:47 PM CDT): Follows with [facility] Hematology. Anemia thought to be due to iron deficiency as well as CKD stage IIIb. Received iron infusion in 09/2023. On admission hgb 8.4 (bl 7- 9). Iron 72, ferritin 1715. - Stable H/H, last 8.5 NSVT (nonsustained ventricular tachycardia) 11/2023 A-fib (CMS/HCC) 02/17/2023 Assessment & Plan (12/01/2023 12:47 PM CDT): Follows with [facility] Cardiology. History of afib with difficulty with [...] spine films at that time. History of ME (myocardial infarction) 12/10/2017 Overview (12/10/2017): 2012 Primary hypertension 11/06/2012 Coronary artery disease invo lving [place] coronary artery of [place] heart without angina pectoris 09/23/2012 Hx of CABG 09/23/2012 Assessment & Plan (11/29/2023 1:03 PM CDT): - continue home metoprolol XL 25mg daily - continue home atorvastatin 80mg daily - continue home zetia Encounters Date Type Department Care Team Description 04/01/2024 Telephone [facility] Orthopaedic Surgery [address] [facility] [address] [place] [address] Harpreet RosenbergRONNY 03/17/2024 8:38 AM CDT - 03/17/2024 11:59 PM CDT Hospital Encounter [facility] Radiology [address] [facility] [address] [place] [address] Jamari Rodríguez MD Right hip pain; Primary osteoarthritis of right hip Discharge Disposition: Discharge to home or self care from Last 3 Months Immunizations Name Administration Dates Next Due Moderna SARS-CoV-2 Monovalent Vaccination (12+ Y RS) 09/06/2020,08/09/2020 Surgical History Surgery Date Site/Laterality Comments CORONARY ARTERY BYPASS GRAFT 06/16/2012 - 06/15/2013 Double by-pass - [facility] COLON SURGERY 06/16/1992 - 06/15/1993 Repair burst colon MICRODISCECTOMY 06/16/1998 - 06/15/1999 Dr. James ([place], [place]) TOTAL KNEE ARTHROPLASTY 06/16/2017 - 06/15/2018 Right FLUORO GUIDED INJECTION HIP RIGHT 05/16/2022 Right FLUORO GUIDED INJECTION HIP RIGHT 08/15/2022 Right FLUORO GUIDED INJECTION HIP RIGHT 12/10/2022 Right CARDIOVERSION 03/16/2023 - 04/15/2023 FLUORO GUIDED INJECTION HIP RIGHT 05/13/2023 Right FLUORO GUIDED INJECTION HIP RIGHT 03/17/2024 Right Medical History Medical History Date Comments Vertigo History of ME (myocardial infarction) 2012 Heart murmur High cholesterol [...] Tobacco: Never Tobacco Cessation:Counseling Given: Not Answered [facility] Utilities Answer Date Recorded In [...] How often do you attend judaism or caodaism serv ices? Never 12/04/2023 Do you belong [...] staff should administer the PHQ-9) 0 09/28/2020 [facility] - Occupational Stress Questionnaire Answer Date Recorded [...] you homeless or living in a senior care (including now)? No 12/04/2023 Personal Safety Answer Date Recorded Have you ever been in or are you currently in a harmful physical or emotional relationship or is someone making you feel afraid or unsafe? 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 Gender Identity Female 02/07/2021 4:33 PM CDT [...] Completed 11/24/2023 Medical Devices Implanted Type Area Briquette Machine Operator Device Identifier Shelf Expiration Date Model / Serial / Lot Rt Total Knee Arthroplasty Right: Knee Cataract-Lens Implant Eye Wise Connect Viabil 10 Mm X 4cm Shortwire [id number] - [id number] - [id number] Implanted:Qty: 1 on 11/26/2023 by Heydi Fenton MD at [facility] Wise Connect 06/01/2026 [id number] / [id number] / Procedures Procedure Name Priority Date/Time Associated [...] FLUOROSCOPY PROCEDURES Final Result Performing Organization Address City/[facility]/ZIP Co de Phone Number [id number] * Hepatitis panel, acute Blood (11/24/2023 12:01 PM CDT) Hep A IgM Nonreactive Nonreactive Hep B core IgM Nonreactive Nonreactive [facility] Hep C Ab Nonreactive [facility] Comment:Antibodies to HCV no t detected. Does NOT exclude the possibility of recent exposure to HCV. Current interpretive data was last revised on 22 HepBsAg Nonreactive Nonreactive [facility] Blood 11/24/2023 12:0 1 PM CDT 11/24/2023 12:20 PM CDT us Kassidy Cunningham MD LAB MICROBIOLOGY - G ENERAL ORDERABLES Final Result Performing Organization Address [facility] de Phone Number [facility] Department [place] [address] from Last 3 Months or Most Recently Relevant to Health Maintenance Insurance [facility] IDPA [facility] Member Subscriber Plan / Payer (Ef fective 2017-Present) Name:Tiera Lobato Relation to Subscriber:Self Name:Tiera Lobato Payer ID:[id number] (NAIC) Type:MEDICARE RISK OTHER Address: [address] [place] [id number] IDMO [facility] Member Subscriber Plan / Payer (Ef fective 2021-Present) Name:Tiera Lobato Relation to Subscriber:Self Name:Tiera Lobato Payer ID:[id number] (NAIC) Type:MEDICARE RISK OTHER Address: [address] [place] [id number] IDPA [facility] Advance Directives For more information, please contact: [phone] * Full Code (Latest Code Status on File) Date Activated Date Inactivated Comments 01/12/2024 9:55 AM 01/12/2024 3:53 PM * Full Code Date Activated Date Inactivated Comments 11/26/2023 1:02 PM 12/03/2023 7:36 PM * Full Code Date Activated Date Inactivated Comments 11/25/2023 6:29 PM 11/26/2023 1:02 PM * Full Code Date Activated Date Inactivated Comments 02/17/2023 5:25 PM 03/21/2023 7:10 PM Care Teams Car Deliverer Relationship Specialty Start Date End Date Cristian Ling MD [address] [place] [address] PCP - General 10/16/16
--- OUTSIDE RECORDS SUMMARY | 2024-06-12 04:27 | XMS_ITS | Encounter Summary ---
Author Organization [facility] Healthcare Address [address] [place] [address] Care Team Providers Care Shrimp Peeling Machine Operator Name Role Phone Cristian Ling MD Primary Care Prov ider Encounter Details Date Type Department Care Team (Late st Contact Info) Description 03/11/2024 Telephone Radiology - [address] [facility] [address] [place] [address] Carolina Torrez, RT Social History Tobacco Use Types Packs/Day Years Used Date Smoking Tobacco: Never Passive Smoke Exposure: Current Smokeless Tobacco: Never [facility] Utilities Answer Date Recorded In the past 12 months has [facility] electric, gas, oil, or water [employer] threatened to shut off services in your [...] How often do you attend sabianist or sabianist serv ices? 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 [address] [facility] [facility], [address] If you have any financial questions please call [phone] (ONLY SHARE THIS IF PATIENT INQUIRES) If you need to cancel or reschedule your appointment please call [phone] Ask them the covid screening questions Have [...] then please connect the patient with the curriculum coordinator at [phone]. If a direct number is requested by the patient please give them [phone]. documented in this encounter Plan of Treatment Not on file documented as of this encounter Visit Diagnoses Not on filedocumented in this encounter Care Teams Shrimp Peeling Machine Operator Relationship Specialty Start Date End Date Cristian Ling MD [address] [place] [address] PCP - General 10/16/16 documented as of this encounter
--- OUTSIDE RECORDS SUMMARY | 2024-06-12 04:27 | XMS_ITS | Encounter Summary ---
Author Organization [facility] Address [address] [place] [address] Phone Care Team Providers Care Program Officer Name Role Phone Cristian Ling MD Primary Care Prov ider Encounter Details Date Type Department Care Team (Late st Contact Info) Description 04/01/2024 Telephone [facility] Orthopaedic Surgery [address] [facility] [address] [place] [address] Harpreet Rosenberg CMA Social History Tobacco Use Types Packs/Day Years Used Date Smoking Tobacco: Never Passive Smoke Exposure: Current Smokeless Tobacco: Never [facility] Utilities Answer Date Recorded In the past 12 months has [facility] electric, gas, oil, or water company [...] week 12/04/2023 How often do you attend synagogue or hinduism serv ices? 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
--- OUTSIDE RECORDS SUMMARY | 2024-06-12 04:27 | XMS_ITS | Encounter Summary ---
Author Organization [facility] Healthcare Address [address] [place] [address] Care Team Providers Care Access Registrar Name Role Phone Cristian Ling MD Primary Care Prov ider Reason for Referral * Diagnostic Imaging (Routine) - Closed Specialty Diagnoses / Procedures Referred By Contac t Referred To Contact Diagnoses Right hip pain Primary osteoarthritis of right hip Procedures [place] Fluoro Guided Injection Hip Right Jamari Briseno MD [address] [facility] [address] [place] [address] Phone: tel: fax: [address] [address] Referral ID Status Reason Start Date Expiration Date Visits Re quested Visits Authorized [id number] Closed 02/23/2024 03/24/2025 1 1 Reason for Visit * Diagnostic Imaging (Routine) - Closed Specialty Diagnoses / Procedures Referred By Contac t Referred To Contact Diagnoses Right hip pain Primary osteoarthritis of right hip Procedures FL Fluoro Guided Injection Hip Right Jamari Briseno MD [address] [facility] [address] [place] [address] Phone: tel: fax: [address] [address] Referral ID Status Reason Start Date Expiration Date Visits Re quested Visits Authorized [id number] Closed 02/23/2024 03/24/2025 1 1 Encounter Details Date Type Department Care Team (Latest Contact Info) Description 03/17/2024 8:38 AM CDT - 03/17/2024 11:59 PM CDT Hospital Encounter [facility] Radiology [address] [facility] [address] [place] [address] Jamari Briseno MD [address] [facility] [address] [address] [place] [address] Right hip pain; Primary osteoarthritis of right hip Discharge Disposition: Discharge to home or self care Social History Tobacco Use Types Packs/Day Years Used Date Smoking Tobacco: Never Passive Smoke Exposure: Current Smokeless Tobacco: Never [facility] Taskdoer Answer Date Recorded In the past 12 months has e electric, gas, oil, or water [employer] threatened to shut off services in your [...] week 12/04/2023 How often do you attend baptist or quaker serv ices? Never 12/04/2023 Do you belong to any clubs o r organizations such as baptist groups, unions, fraternal or athletic groups, or [...] staff should administer the PHQ-9) 0 09/28/2020 [facility] - Occupational Stress Questionnaire Answer Date [...] in the past 12 m [facility], were you homeless or living [...] on file Legal Sex Female 7:12 AM HOSPICE MUSIC THERAPY Gender Identity Female 02/07/2021 4:33 PM CDT [...] those with type 1 diabetes. Check fasting (internal medicine doctor prior to first meal of the day) [...] concerns after hours, call our exchange at [phone]. For all other questions regarding the procedure, please call our office at [phone]. Pain Diary Please fill out the pain diary chart below and message via TeamLINKS call or call the medical provider who [...] AM CDT Right Fluoroscopically-Guided Hip Joint Injection [facility] Department of Orthopedic Surgery Division of [...] mg documented in this encounter Care Teams Access Registrar Relationship Specialty Start Date End Date Cristian Ling MD [address] [place] [address] PCP - General 10/16/16 documented as of this encounter
--- OUTSIDE RECORDS SUMMARY | 2024-06-12 04:27 | XMS_ITS | Referral Summary ---
Author Organization [facility] Address [address] [place] [address] Care Team Providers Care General Purchasing Agent Name Role Phone Cristian Lign MD Primary Care Prov ider Encounters Date Type Department Care Team Description 04/01/2024 Telephone [facility] Orthopaedic Surgery [address] [facility] [address] [place] [phone] Harpreet Rosenberg CMA 03/17/2024 8:38 AM CDT - 03/17/2024 11:59 PM CDT Hospital Encounter [facility] Radiology [address] [place] [phone] Jamari Rodríguez MD Right hip pain; Primary [...] Plan (12/01/2023 12:47 PM CDT): Follows with [facility] Hematology. Anemia thought to be due to iron deficiency as well as CKD stage IIIb. Received iron infusion in 09/2023. On admission hgb 8.4 (bl 7- 9). Iron 72, ferritin 1715. - Stable H/H, last 8.5 NSVT (nonsustained ventricular tachycardia) 11/2023 A-fib (CMS/HCC) 02/17/2023 Assessment & Plan (12/01/2023 12:47 PM CDT): Follows with [facility] Cardiology. History of afib with difficulty [...] spine films at that time. History of MD (myocardial infarction) 12/10/2017 Overview (12/10/2017): 2012 Primary hypertension 11/06/2012 Coronary artery disease invo lving [place] coronary artery of [place] heart without angina pectoris 09/23/2012 Hx of [...] Tobacco: Never Tobacco Cessation:Counseling Given: Not Answered [facility] Utilities Answer Date Recorded In the past 12 months has e [employer], gas, oil, or water [employer] threatened to shut off services in your [...] week 12/04/2023 How often do you attend orthodox or hoahaoism serv ices? Never 12/04/2023 Do you belong to any clubs o r organizations such as orthodox groups, unions, fraternal or athletic groups, [...] staff should administer the PHQ-9) 0 09/28/2020 [facility] Questionnaire Answer Date [...] any time in the past 12 m [facility], were you homeless or living in a residential (including now)? No 12/04/2023 Personal Safety Answer Date Recorded Have you ever been in or are you currently in a harmful physical or emotional relationship or is someone making you feel afraid or unsafe? Denies 01/12/2024 Comments No Sex and Gender Information Value Date Recorded Sex Assigned at Not on file Legal Sex Female 7:12 AM COMPUTER TECH Gender Identity Female 02/07/2021 4:33 PM CDT [...] on file Medical Devices Implanted Type Area Evening Sitter Device Identifier Shelf Expiration Date Model / Serial / Lot Rt Total Knee Arthroplasty Right: Knee Cataract-Lens Implant Eye [email or web address] Viabil 10 Mm X 4cm Shortwire [id number] - [id number] - [id number] Implanted:Qty: 1 on 11/26/2023 by Heydi Fenton MD at [facility] [email or web address] 06/01/2026 [id number] / [id number] / Procedures Procedure Name Priority Date/Time Associated [...] Nonreactive Hep B core IgM Nonreactive Nonreactive [facility] Hep C Ab Nonreactive Nonreactive [facility] Comment:Antibodies to HCV no t detected. Does NOT exclude the possibility of recent exposure to HCV. Current interpretive data was last revised on 22 HepBsAg Nonreactive Nonreactive [facility] Blood 11/24/2023 12:0 1 PM CDT 11/24/2023 12:20 PM CDT us Kassidy Cunningham MD LAB MICROBIOLOGY - G ENERAL ORDERABLES Final Result [facility] Department [place] [address] from Last 3 Months or Most Recently Relevant to Health Maintenance Insurance [facility] Member Subscriber Plan / Payer (Ef fective 2021-Present) Name:Tiera Lobato Relation to Subscriber:Self Name:Tiera Lobato Payer ID:[id number] (NAIC) Type:MEDICARE RISK OTHER Address: [address] [place] [id number] [employer] [facility] Advance Directives For more information, please contact: [phone] * Full Code (Latest Code Status on File) Date Activated Date Inactivated Comments 01/12/2024 9:55 AM 01/12/2024 3:53 PM * Full Code Date Activated Date Inactivated Comments 11/26/2023 1:02 PM 12/03/2023 7:36 PM * Full Code Date Activated Date Inactivated Comments 11/25/2023 6:29 PM 11/26/2023 1:02 PM * Full Code Date Activated Date Inactivated Comments 02/17/2023 5:25 PM 03/21/2023 7:10 PM Care Teams General Purchasing Agent Relationship Specialty Start Date End Date Cristian Ling MD [address] [place] [address] PCP - General 10/16/16
--- OUTSIDE RECORDS SUMMARY | 2024-06-12 04:27 | XMS_ITS | Encounter Summary ---
Author Organization [facility] Address [address] [place] [address] Phone Care Team Providers Care Oncology Pharmacist Name Role Phone Cristian Ling MD Primary Care Prov ider Encounter Details Date Type Department Care Team (Late st Contact Info) Description 03/10/2024 Telephone [facility] Orthopaedic Surgery [address] 2[address] [place] [address] Vidya Grace LPN Social History Tobacco Use Types Packs/Day Years Used Date Smoking Tobacco: Never Passive Smoke Exposure: Current Smokeless Tobacco: Never [facility] Utilities Answer Date Recorded In the past 12 months has [facility] electric, gas, oil, or water [...] staff should administer the PHQ-9) 0 09/28/2020 [facility] of Occupat ional Health - [...] were you homeless or living in a nursing home (including now)? No 12/04/2023 Personal Safety Answer Date Recorded Have you ever been in or are you currently in a harmful physical or emotional relationship or is someone making you feel afraid or unsafe? Denies 01/12/2024 Comments No Sex and Gender Information Value Date Recorded Sex Assigned at Not on file Legal Sex Female 7:12 AM RADIOLOGIST PHYSICIAN Gender Identity Female 02/07/2021 4:33 PM CDT [...] on filedocumented in this encounter Care Teams Oncology Pharmacist Relationship Specialty Start Date End Date Cristian Ling MD [address] [place] [address] PCP - General 10/16/16 documented as of this encounter
--- OUTSIDE RECORDS SUMMARY | 2024-06-12 04:28 | XMS_ITS | Encounter Summary ---
Author Organization [facility] Healthcare Address [address] [place] [address] Care Team Providers Care Pharmaceutical Physician Name Role Phone Cristian Ling MD Primary Care Prov ider Reason for Visit * Auth/Cert Specialty Diagnoses / Procedures Referred By Paula cardona Referred To Contact Diagnoses History of biliary duct stent placement History of biliary duct stent placement [Z98.890] Procedures ND ERCP REMOVE FOREIGN BODY/STENT BILIARY/PANC DUCT ERCP- stent removal Referral ID Status Reason Start Date Expiration Date Visits Re quested Visits Authorized [id number] 1 1 Encounter Details Date Type Department Care Team (Latest Contact Info) Description 01/12/2024 9:24 AM CDT - 01/12/2024 11:52 AM CDT Hospital Encounter [facility] Digestive Disease [place] [address] [facility] [address] [place] [address] Heydi Fenton MD [address] [place] [address] Wilfred Howard MD [address] [place] [address] History of biliary duct stent placement Discharge Disposition: Discharge to home or self care Social History Tobacco Use Types Packs/Day Years Used Date Smoking Tobacco: Never Passive Smoke Exposure: Current Smokeless Tobacco: Never [facility] Utilities Answer Date Recorded In the past 12 months has e [employer], [employer], oil, or water [employer] threatened to shut off services in your [...] week 12/04/2023 How often do you attend nondenominational or jew serv ices? Never 12/04/2023 Do you belong to any clubs o r organizations such as nondenominational groups, unions, fraternal or athletic groups, or [...] administer the PHQ-9) 0 09/28/2020 [facility] [place] of Occupat ional Health - Occupational Stress [...] any time in the past 12 m [facility], were you homeless or living in a fci (including now)? No 12/04/2023 Personal Safety Answer Date Recorded Have you ever been in or are you currently in a harmful physical or emotional relationship or is someone making you feel afraid or unsafe? Denies 01/12/2024 Comments No Sex and Gender Information Value Date Recorded Sex Assigned at Not on file Legal Sex Female 7:12 AM PAYROLL MASTER Gender Identity Female 02/07/2021 4:33 PM CDT [...] as teenager - had phlebitis History of [place] (myocardial infarction) 2012 History of vertebral fracture 2017 HTN (hypertension) IBS (irritable bowel syndrome) Vertigo Past Surgical History: Procedure Laterality Date CARDIOVERSION 03/2023 COLON SURGERY 1993 Repair burst colon CORONARY ARTERY BYPASS GRAFT 2013 Double by-pass - [facility] FLUORO GUIDED INJECTION HIP RIGHT Right 05/16/2022 FLUORO GUIDED INJECTION HIP RIGHT Right 08/15/2022 FLUORO GUIDED INJECTION HIP RIGHT Right 12/10/2022 FLUORO GUIDED INJECTION HIP RIGHT Right 05/13/[address] James ([place], [place]) TOTAL KNEE ARTHROPLASTY Right 2017 Social [...] Female Attending MD: Wilfred Howard M.D. Room: [facility] ENDOSCOPY ROOM 2 Note Status: [...] discussed and informed consent was obtained. The [id number] Duodenoscope was introduced through the mouth, and used to inject contrast into and used to inject contrast into the bile duct. Findings: A biliary stent and surgical clips were visible on the space physicist film. The esophagus was successfully intubated under [...] the days following this procedure please call [phone] and ask for my nurse, Sydnee Alas. After hours and evenings please call [phone] and speak to the GI fellow substation operator automatic. Please tell the fellow that Dr. Howard [...] Howard MD IMG FLUOROSCOPY PROCEDURES Final Result RAD_PACS_[facility] * ERCP (01/12/2024 9:48 AM CDT) Anatomical Region Laterality Modality Other Narrative Procedure Note Wilfred Howard MD - 01/12/2024 9:48 AM CDT [facility] ENDOS[facility] Patient Name: Tiera Lobato Procedure Date: 01/12/2024 9:48 AM Date of : 1945 Admit Type: Outpatient Age: 78 Gender: Female Attending MD: Wilfred Howard M.D. Room: [facility] ENDOSCOPY ROOM 2 Note Status: [...] were discussed and informed consentwas obtained. The [id number] Duodenoscope wasintroduced through the mouth, and used to inject contrast into and used to inject contrast into the bile duct. Findings: A biliary stent and surgical clips were visible on the space physicist film.The esophagus was successfully intubated under direct [...] the days following this procedure please call [phone] ask for my nurse, Sydnee Alas. After hours and evenings please call [phone] and speak to theGI fellow substation operator automatic. Please tell the fellow that Dr. Howard [...] (New Bag - Prov ider: Antonio Parra, PAYROLL MASTER)1553 (Due: Stopped) PRN Medication Order 01/10/2024 01/11/2024 01/12/2024 iothalamate meglumine (CONRAY) 60 % injection (CANCELED) As needed, Starting on Fri01/12/24 at 1029, Intra-Op 1029 (Given - Provid er: Briseyda Maher, PHILIP) ondansetron (ZOFRAN) injection 4 mg 4 mg, [...] 12/15 documented in this encounter Care Teams Pharmaceutical Physician Relationship Specialty Start Date End Date Cristian Ling MD [address] [place] [address] PCP - General 10/16/16 documented as of this encounter
--- OUTSIDE RECORDS SUMMARY | 2024-06-12 04:28 | XMS_ITS | Encounter Summary ---
Author Organization [facility] Address [address] [place] [address] Phone Care Team Providers Care Ibm Mainframe Systems Programmer Name Role Phone Cristian Ling MD Primary Care Prov ider Encounter Details Date Type Department Care Team (Late st Contact Info) Description 02/12/2024 Telephone [facility] Orthopaedic Surgery [address] [facility] [address] [place] [address] Vidya Grace LPN Social History Tobacco Use Types Packs/Day Years Used Date Smoking Tobacco: Never Passive Smoke Exposure: Current Smokeless Tobacco: Never [facility] Utilities Answer Date Recorded In the past 12 months has [facility] [employer], gas, oil, or water company threatened to [...] week 12/04/2023 How often do you attend restorationist or mosque serv ices? Never 12/04/2023 Do you belong to any clubs o r organizations such as restorationist groups, unions, fraternal or athletic groups, or [...] time in the past 12 m [facility], were you homeless or living in [...] file Legal Sex Female 7:12 AM SENIOR ARCHITECT/DESIGN MANAGER Gender Identity Female 02/07/2021 4:33 PM [...] I try reaching out to pt on [employer]. documented in this encounter Plan of Treatment Not on file documented as of this encounter Visit Diagnoses Not on filedocumented in this encounter Care Teams Ibm Mainframe Systems Programmer Relationship Specialty Start Date End Date Cristian Ling MD [address] [place] [address] PCP - General 10/16/16 documented as of this encounter
--- OUTSIDE RECORDS SUMMARY | 2024-06-12 04:28 | XMS_ITS | Encounter Summary ---
Author Organization [facility] Healthcare Address [address] [place] [address] Care Team Providers Care Bell Attendant Name Role Phone Cristian Ling MD Primary Care Prov ider Reason for Visit * Diagnostic Imaging (Routine) - Pending Review Specialty Diagnoses / Procedures Referred By Paula cardona Referred To Contact Diagnoses Right hip pain Primary osteoarthritis of right hip Procedures XR Hip Right 2 or 3 Views W Pelvis X-ray pelvis 3+ views Jamari Rodríguez MD [address] [place] [address] Phone: tel: fax: [address] [address] Referral ID Status Reason Start Date Expiration Date V isits Requested Visits Authorized [id number] Pending Review 02/23/2024 03/24/2025 1 1 Encounter Details Date Type Department Care Team (Latest Contact Info) Description 02/23/2024 1:29 PM CDT - 02/23/2024 11:59 PM CDT Hospital Encounter [facility] Radiology [address] [facility] [address] [place] [address] Right hip pain; Primary osteoarthritis of right hip Discharge Disposition: Discharge to home or self care Social History Tobacco Use Types Packs/Day Years Used Date Smoking Tobacco: Never Passive Smoke Exposure: Current Smokeless Tobacco: Never [facility] Utilities Answer Date Recorded In the [...] week 12/04/2023 How often do you attend tenriism or taoist serv ices? Never 12/04/2023 Do you belong to any clubs o r organizations such as tenriism groups, unions, fraternal or athletic groups, or [...] staff should administer the PHQ-9) 0 09/28/2020 [facility] - Occupational Stress [...] any time in the past 12 m [facility], were you homeless or living [...] file Legal Sex Female 7:12 AM SENIOR CLINICAL STUDY MANAGER Gender Identity Female 02/07/2021 4:33 PM [...] hip documented in this encounter Care Teams Bell Attendant Relationship Specialty Start Date End Date Cristian Ling MD [address] [place] [address] PCP - General 10/16/16 documented as of this encounter
--- OUTSIDE RECORDS SUMMARY | 2024-06-12 04:28 | XMS_ITS | Encounter Summary ---
Author Organization [facility] Address [address] [place] [address] Phone Care Team Providers Care Spanish Lecturer Name Role Phone Cristian Ling MD Primary Care Prov ider Belinda Quigley LAYOUT MAN Unavailable [phone] Reason for Visit * Reason Onset Date Comments Vertigo referral 12/17/2023 Encounter Details Date Type Department Care Team (Late st Contact Info) Description 12/17/2023 Telephone [facility] Cardiology [address] [facility] Advanced Medicine 8th [place] [address] [place] [address] Sami Stafford MD [address] [address] Vertigo referral Social History Tobacco Use Types Packs/Day Years Used Date Smoking Tobacco: Never Passive Smoke Exposure: Current Smokeless Tobacco: Never [facility] Utilities Answer Date Recorded In the [...] How often do you attend buddhism or caodaism serv ices? Never 12/04/2023 Do [...] staff should administer the PHQ-9) 0 09/28/2020 [facility] [place] of Occupat ional Health - Occupational Stress [...] any time in the past 12 m [facility], were you homeless or living [...] on file Legal Sex Female 7:12 AM AIRCRAFT STRUCTURAL REPAIR MECHANIC Gender Identity Female 02/07/2021 4:33 PM [...] on filedocumented in this encounter Care Teams Spanish Lecturer Relationship Specialty Start Date End Date Cristian Ling MD [address] [place] [address] PCP - General 10/16/16 Belinda Quigley, LAYOUT MAN [address] [facility] ([facility] Mailstop [phone] [place] [address] SHOP Outpatient Cigarette And Filter Chief Inspector 12/04/23 12/30/23 documented as of this encounter
--- OUTSIDE RECORDS SUMMARY | 2024-06-12 04:28 | XMS_ITS | Encounter Summary ---
Author Organization [facility] Address [address] [place] [address] Phone Care Team Providers Care Trackmobile Operator Name Role Phone Cristian Ling MD Primary Care Prov ider Encounter Details Date Type Department Care Team (Late st Contact Info) Description 01/28/2024 Telephone [facility] Cardiology [address] [facility] Advanced Medicine 8th [place] [address] [place] [address] Sami Stafford MD [address] [facility] [address] [place] [address] Social History Tobacco Use Types Packs/Day Years Used Date Smoking Tobacco: Never Passive Smoke Exposure: Current Smokeless Tobacco: Never [facility] Utilities Answer Date Recorded In the past 12 months has [employer], gas, oil, or water [employer] threatened to shut off services in your [...] How often do you attend moravian or anglican serv ices? Never 12/04/2023 Do you belong [...] staff should administer the PHQ-9) 0 09/28/2020 [facility] of Occupat ional Health - Occupational [...] in the past [address] [facility], were you homeless or living in a [...] on file Legal Sex Female 7:12 AM SUSPENDER MAKER Gender Identity Female 02/07/2021 4:33 PM [...] on filedocumented in this encounter Care Teams Trackmobile Operator Relationship Specialty Start Date End Date Cristian Ling MD [address] [place] [address] PCP - General 10/16/16 documented as of this encounter
--- OUTSIDE RECORDS SUMMARY | 2024-06-12 04:28 | XMS_ITS | Encounter Summary ---
Author Organization [facility] Healthcare Address [address] [place] [address] Care Team Providers Care Sharepoint Engineer Name Role Phone Cristian Ling MD Primary Care Prov ider Belinda Quigley CONTINUOUS WELD PIPE MILL SUPERVISOR Unavailable [phone] Reason for Visit * Reason Comments Successfully Completed Encounter Details Date Type Department Care Team (Late st Contact Info) Description 12/10/2023 SHOP/CHAP Subsequent Outreach [facility] OP CASE MANAGEMENT [address] [place] [address] Belinda Quigley, CONTINUOUS WELD PIPE MILL SUPERVISOR [address] [facility] ([facility]) Mailstop [phone] [place] [address] Social History Tobacco Use Types Packs/Day Years Used Date Smoking Tobacco: Never Passive Smoke Exposure: Current Smokeless Tobacco: Never [facility] Utilities Answer Date Recorded In the past 12 months has [facility] [employer], gas, oil, or water [employer] threatened to shut off services in your [...] How often do you attend anglican or bahai serv ices? Never 12/04/2023 Do you belong [...] staff should administer the PHQ-9) 0 09/28/2020 [facility] [place] of Occupat ional Health - Occupational Stress [...] any time in the past 12 m [facility], were you homeless or living in [...] this encounter Progress Notes * Belinda Quigley, CONTINUOUS WELD PIPE MILL SUPERVISOR - 12/10/2023 10:06 AM CDT OCM spoke with pt via telephone. Pt reports she has not been able to follow up with the nurse Ivone at her facility. OCM called [facility] and had to leave a message for [...] on filedocumented in this encounter Care Teams Sharepoint Engineer Relationship Specialty Start Date End Date Cristian Ling MD [address] [place] [address] PCP - General 10/16/16 Belinda Quigley LCSW [address] [facility] ([facility]) Mailstop [phone] [place] [address] SHOP Outpatient Tubing Tester 12/04/23 12/30/23 documented as of this encounter
--- OUTSIDE RECORDS SUMMARY | 2024-06-12 04:28 | XMS_ITS | Encounter Summary ---
Author Organization [facility] Healthcare Address [address] [place] [address] Care Team Providers Care Pattern Attendant Name Role Phone Cristian Ling MD Primary Care Prov ider Belinda Quigley SKIN CARE INSTRUCTOR Unavailable [phone] Reason for Visit * Reason Comments Successfully Completed Encounter Details Date Type Department Care Team (Late st Contact Info) Description 12/24/2023 SHOP/CHAP Subsequent Outreach [facility] OP CASE MANAGEMENT [address] [place] [address] Belinda Quigley, SKIN CARE INSTRUCTOR [address] [facility] ([facility]) Mailstop [phone] [place] [address] Social History Tobacco Use Types Packs/Day Years Used Date Smoking Tobacco: Never Passive Smoke Exposure: Current Smokeless Tobacco: Never [facility] Utilities Answer Date Recorded In the past 12 months has [facility] [employer], gas, oil, or water [employer] threatened to shut off services in your [...] How often do you attend religious or tenriism serv ices? Never 12/04/2023 Do you belong [...] should administer the PHQ-9) 0 09/28/2020 [facility] [place] of Occupat ional Health - Occupational Stress [...] in the past 12 m [facility], were you homeless or living in a longterm (including now)? No 12/04/2023 Personal Safety Answer Date Recorded Have you ever been in or are you currently in a harmful physical or emotional relationship or is someone making you feel afraid or unsafe? Denies 12/07/2023 Comments No Sex and Gender Information Value Date Recorded Sex Assigned at Not on file Legal Sex Female 7:12 AM GEAR HOBBER Gender Identity Female 02/07/2021 4:33 PM CDT Sexual Orientation Straight 02/07/2021 4: 33 PM CDT documented as of this encounter Progress Notes * Belinda Quigley, SKIN CARE INSTRUCTOR - 12/24/2023 9:53 AM CDT OCM spoke [...] on filedocumented in this encounter Care Teams Pattern Attendant Relationship Specialty Start Date End Date Cristian Ling MD [address] [place] [address] PCP - General 10/16/16 Belinda Quigley LCSW [address] [facility] ([facility]) Mailstop [phone] [place] [address] SHOP Outpatient Senior Drafter 12/04/23 12/30/23 documented as of this encounter
--- OUTSIDE RECORDS SUMMARY | 2024-06-12 04:28 | XMS_ITS | Encounter Summary ---
Author Organization [facility] Address [address] [place] [address] Phone Care Team Providers Care Manager Of Disaster Recovery Name Role Phone Cristian Ling MD Primary Care Prov ider Encounter Details Date Type Department Care Team (Late st Contact Info) Description 03/01/2024 Telephone [facility] Orthopaedic Surgery [address] [facility] Medical Office Building [address] [place] [address] Vidya Grace LPN Social History Tobacco Use Types Packs/Day Years Used Date Smoking Tobacco: Never Passive Smoke Exposure: Current Smokeless Tobacco: Never [facility] Utilities Answer Date Recorded In the past 12 months has [facility] electric, gas, oil, or water company [...] How often do you attend yarsanism or yarsanism serv ices? Never 12/04/2023 Do [...] should administer the PHQ-9) 0 09/28/2020 [facility] of Occupat ional Health - Occupational [...] on file Legal Sex Female 7:12 AM SEO EXECUTIVE Gender Identity Female 02/07/2021 4:33 PM [...] in this encounter Care Teams Manager Of Disaster Recovery Relationship Specialty Start Date End Date Cristian Ling MD [address] [place] [address] PCP - General 10/16/16 documented as of this encounter
--- OUTSIDE RECORDS SUMMARY | 2024-06-12 04:28 | XMS_ITS | Encounter Summary ---
Author Organization [facility] Address [address] [place] [address] Phone Care Team Providers Care Demand Inspector Name Role Phone Cristian Ling MD Primary Care Prov ider Encounter Details Date Type Department Care Team (Late st Contact Info) Description 03/09/2024 Telephone [facility] Orthopaedic Surgery [address] [facility] 2nd Floor [address] [place] [address] Vidya Grace LPN Social History Tobacco Use Types Packs/Day Years Used Date Smoking Tobacco: Never Passive Smoke Exposure: Current Smokeless Tobacco: Never [facility] Utilities Answer Date Recorded In the past 12 months has [facility] electric, gas, oil, or water company [...] How often do you attend restorationist or synagogue serv ices? Never 12/04/2023 Do you belong [...] staff should administer the PHQ-9) 0 09/28/2020 [facility] of Occupat ional Health [...] on file Legal Sex Female 7:12 AM MOLD CARPENTER Gender Identity Female 02/07/2021 4:33 PM CDT [...] on filedocumented in this encounter Care Teams Demand Inspector Relationship Specialty Start Date End Date Cristian Ling MD [address] [place] [address] PCP - General 10/16/16 documented as of this encounter
--- OUTSIDE RECORDS SUMMARY | 2024-06-12 04:28 | XMS_ITS | Encounter Summary ---
Author Organization [facility] Address [address] [place] [address] Phone Care Team Providers Care Cavity Pump Operator Name Role Phone Cristian Ling MD Primary Care Prov ider Encounter Details Date Type Department Care Team (Late st Contact Info) Description 01/22/2024 Telephone [facility] Cardiology [address] [facility] Advanced Medicine 8th [place] [address] [place] [address] Sami Stafford MD [address] [facility] [address] [place] [address] Social History Tobacco Use Types Packs/Day Years Used Date Smoking Tobacco: Never Passive Smoke Exposure: Current Smokeless Tobacco: Never [facility] Utilities Answer Date Recorded In the past 12 months has [employer], gas, oil, or water [employer] threatened to shut off services in your [...] week 12/04/2023 How often do you attend evangelical or lutheran serv ices? Never 12/04/2023 Do you belong to any clubs o r organizations such as evangelical groups, unions, fraternal or athletic groups, or [...] staff should administer the PHQ-9) 0 09/28/2020 [facility] of Occupat ional Health - Occupational [...] time in the past 12 m [facility], were you homeless or living in a long term (including now)? No 12/04/2023 Personal Safety Answer Date Recorded Have you ever been in or are you currently in a harmful physical or emotional relationship or is someone making you feel afraid or unsafe? Denies 01/12/2024 Comments No Sex and Gender Information Value Date Recorded Sex Assigned at Not on file Legal Sex Female 7:12 AM RED CROSS WORKER Gender Identity Female 02/07/2021 4:33 PM [...] on filedocumented in this encounter Care Teams Cavity Pump Operator Relationship Specialty Start Date End Date Cristian Ling MD [address] [place] [address] PCP - General 10/16/16 documented as of this encounter
--- OUTSIDE RECORDS SUMMARY | 2024-06-12 04:28 | XMS_ITS | Encounter Summary ---
Author Organization [facility] Healthcare Address [address] [place] [address] Care Team Providers Care Ground Support Equipment Mechanic Name Role Phone Cristian Ling [...] Expiration Date Visits Re quested Visits Authorized [id number] 1 1 Encounter Details Date Type Department Care Team (Latest Contact Info) Description 01/12/2024 10:00 AM CDT - 01/12/2024 11:00 AM CDT Surgery [facility] Digestive Disease Victor [address] [facility] [address] [place] [address] Wilfred Howard MD [address] [place] [address] ENDO ADD ON ENDOSCOPIC RETROGRADE CHOLANGIOPANCREATOGRAPHY REMOVAL STONES Surgery Details Date/Time Status Location OR Service Patient Class Case Class Case Type Trauma Case? 01/12/2024 10:00 AM Posted [facility] ENDOSCOPY ERCP 02 Gastroenterology Outpatient Elective Panel 1 Procedure LRB Anes Op Region Wound Class Comments ENDO ADD ON ENDOSCOPIC RETROGRADE CHOLANGIOPANCREATOGRAPHY REMOVAL STONES N/A Monitor Anesthesia Care N/A RAD S AND I BILIARY DUCTAL SYSTEM N/A General ENDO ENDOSCOPIC RETROGRADE CHOLANGIOPANCREATOGRAPHY WITH REMOVAL FOREIGN BODY/STENT N/A Choice Surgeon Surgeon Role Service Panel Wilfred Howard MD Primary Gastroenterology 1 documented in this encounter Social History Tobacco Use Types Packs/Day Years Used Date Smoking Tobacco: Never Passive Smoke Exposure: Current Smokeless Tobacco: Never [facility] [employer]ities Answer Date Recorded In the past 12 [...] week 12/04/2023 How often do you attend samaritan or scientologist serv ices? Never 12/04/2023 Do you belong to any clubs o r organizations such as samaritan groups, unions, fraternal or athletic groups, or [...] staff should administer the PHQ-9) 0 09/28/2020 [facility] - Occupational Stress Questionnaire Answer Date [...] on file Legal Sex Female 7:12 AM BEHAVIOR MANAGEMENT SPECIALIST Gender Identity Female 02/07/2021 4:33 PM [...] as teenager - had phlebitis History of VA (myocardial infarction) 2012 History of vertebral fracture 2017 HTN (hypertension) IBS (irritable bowel syndrome) Vertigo Past Surgical History: Procedure Laterality Date CARDIOVERSION 03/2023 COLON SURGERY 1992 Repair burst colon CORONARY ARTERY BYPASS GRAFT 2012 Double by-pass - [facility] FLUORO GUIDED INJECTION HIP RIGHT Right 05/16/2022 FLUORO GUIDED INJECTION HIP RIGHT Right 08/15/2022 FLUORO GUIDED INJECTION HIP RIGHT Right 12/10/2022 FLUORO GUIDED INJECTION HIP RIGHT Right 05/13/[address] James ([place], [place]) TOTAL KNEE ARTHROPLASTY Right 2018 Social [...] Attending MD: Wilfred Howard M.D. Room: [facility] ENDOSCOPY ROOM 2 Note Status: Finalized [...] discussed and informed consent was obtained. The [id number] Duodenoscope was introduced through the mouth, and used to inject contrast into and used to inject contrast into the bile duct. Findings: A biliary stent and surgical clips were visible on the nurse charge rn film. The esophagus was successfully intubated under [...] the days following this procedure please call [phone] and ask for my nurse, Sydnee Alas. After hours and evenings please call [phone] and speak to the GI fellow bath design sales consultant. Please tell the fellow that Dr. Howard [...] Attending MD: Wilfred Howard M.D. Room: [facility] ENDOSCOPY ROOM 2 Note Status: Finalized [...] were discussed and informed consentwas obtained. The [id number] Duodenoscope wasintroduced through the mouth, and used to inject contrast into and used to inject contrast into the bile duct. Findings: A biliary stent and surgical clips were visible on the nurse charge rn film.The esophagus was successfully intubated under direct [...] the days following this procedure please call [phone] ask for my nurse, Sydnee Alas. After hours and evenings please call [phone] and speak to theGI fellow bath design sales consultant. Please tell the fellow that Dr. Howard [...] 12/15 documented in this encounter Care Teams Ground Support Equipment Mechanic Relationship Specialty Start Date End Date Cristian Ling MD [address] [place] [address] PCP - General 10/16/16 documented as of this encounter
--- OUTSIDE RECORDS SUMMARY | 2024-06-12 04:28 | XMS_ITS | Encounter Summary ---
Author Organization [facility] Address [address] [place] [address] Phone Care Team Providers Care Semiconductor Bonder Name Role Phone Cristian Ling MD Primary Care Prov ider Reason for Visit * Reason Onset Date Comments bp management 01/23/2024 Encounter Details Date Type Department Care Team (Late st Contact Info) Description 01/23/2024 Telephone [facility] Cardiology [address] [facility] Advanced Medicine 8th [place] [address] [place] [address] Sami Stafford MD [address] [facility] [address] [place] [address] bp management Social History Tobacco Use Types Packs/Day Years Used Date Smoking Tobacco: Never Passive Smoke Exposure: Current Smokeless Tobacco: Never [facility] Utilities Answer Date Recorded In the past 12 months has [employer] electric, gas, oil, or water [employer] threatened to shut off services in your [...] week 12/04/2023 How often do you attend latter-day or latter-day serv ices? Never 12/04/2023 Do you belong to any clubs o r organizations such as latter-day groups, unions, fraternal or athletic groups, or [...] staff should administer the PHQ-9) 0 09/28/2020 [facility] of Occupat ional Health - Occupational Stress [...] file Legal Sex Female 7:12 AM FIRE TOWER KEEPER Gender Identity Female 02/07/2021 4:33 PM CDT [...] on filedocumented in this encounter Care Teams Semiconductor Bonder Relationship Specialty Start Date End Date Cristian Ling MD [address] [place] [address] PCP - General 10/16/16 documented as of this encounter
--- OUTSIDE RECORDS SUMMARY | 2024-06-12 04:28 | XMS_ITS | Encounter Summary ---
Author Organization [facility] Address [address] [place] [address] Phone Care Team Providers Care Client Service Executive Name Role Phone Cristian Ling MD Primary Care Prov ider Reason for Referral * Diagnostic Imaging (Routine) - Closed Specialty Diagnoses / Procedures Referred By Contac t Referred To Contact Diagnoses Right hip pain Primary osteoarthritis of right hip Procedures FL Fluoro Guided Injection Hip Right Jamari Rodríguez MD [address] [facility] [address] [place] [address] Phone: tel: fax: [facility] [address] [place] [address] Referral ID Status Reason Start Date Expiration Date Visits Re quested Visits Authorized [id number] Closed 02/23/2024 03/24/2025 1 1 Reason for Visit * Reason Comments Pain Pain * Consultation (Routine) - Authorized Specialty Diagnoses / Procedures Referred By Contac t Referred To Contact Orthopedic Surgery Diagnoses Right hip pain Cristian Ling MD [address] [place] [address] Phone: tel: fax: [facility] (All Locations) Referral ID Status Reason Start Date Expiration Date Visits Requested Visits Authorized [id number] Authorized Specialty Services Required 11/27/2023 11/28/2024 12 12 Encounter Details Date Type Department Care Team (Latest Contact Info) Description 02/23/2024 12:30 PM CDT Office Visit [facility] Orthopaedic Surgery [address] [facility] Medical Office Building [address] [place] [address] Jamari Rodríguez MD [address] [facility] [address] [place] [address] Right hip pain; Primary osteoarthritis of right hip Social History Tobacco Use Types Packs/Day Years Used Date Smoking Tobacco: Never Passive Smoke Exposure: Current Smokeless Tobacco: Never [facility] [employer] Answer Date Recorded In the past 12 months has e electric, gas, oil, or water [employer] threatened to shut off services in your [...] week 12/04/2023 How often do you attend voodoo or voodoo serv ices? Never 12/04/2023 Do you belong to any clubs o r organizations such as voodoo groups, unions, fraternal or athletic groups, or [...] staff should administer the PHQ-9) 0 09/28/2020 [facility] of Occupat ional Health - Occupational [...] on file Legal Sex Female 7:12 AM REIMBURSEMENT SPEC Gender Identity Female 02/07/2021 4:33 PM CDT [...] 4+ views This note was dictated using Combat St[employer] software. This note was not read in detail; therefore, variances and inaccuracies may occur. Jamari Del Rio MD Professor Physical Medicine and Rehabilitation [facility] Orthopedics * Vidya Grace LPN - [...] procedure: No NSAIDS/Blood thinners: No Not Applicable Environmental Engineering Technician: Not Applicable If patient requires an road maker, do let radiology scheduling ([phone]) know at the time of scheduling and they will schedule the road maker for patient Are you on oxygen or have a tracheostomy? (Patients on supplemental oxygen or with current tracheostomy cannot be scheduled at [facility]) No Diabetic: No Not Applicable Confirm patient's insurance: Yes What is patient's BMI (Maximum BMI at [facility] is 50) 24 Have you had conservative treatment for your pain? N/A Patient instructed to come with a concrete truck driver?: N/A Patient with commercial insurance or those [...] 02/13/2024 added in this encounter Care Teams Client Service Executive Relationship Specialty Start Date End Date Cristian Ling MD [address] [place] [address] PCP - General 10/16/16 documented as of this encounter
--- OUTSIDE RECORDS SUMMARY | 2024-06-12 04:28 | XMS_ITS | Encounter Summary ---
Author Organization [facility] Healthcare Address [address] [place] [address] Care Team Providers Care Nursing Professor Name Role Phone Cristian Ling MD Primary Care Prov ider Encounter Details Date Type Department Care Team (Late st Contact Info) Description 03/08/2024 Telephone Radiology - [address] [facility] [address] [place] [address] Carolina Torrez, RT Social History Tobacco Use Types Packs/Day Years Used Date Smoking Tobacco: Never Passive Smoke Exposure: Current Smokeless Tobacco: Never [facility] Utilities Answer Date Recorded In the past 12 months has [facility] electric, gas, oil, or water [employer] threatened to shut off services in your [...] How often do you attend restorationist or pentecostal serv ices? Never 12/04/2023 Do you belong [...] should administer the PHQ-9) 0 09/28/2020 [facility] - Occupational Stress Questionnaire [...] time in the past 12 m [facility], were you homeless or living [...] on file Legal Sex Female 7:12 AM SERVER MANAGER Gender Identity Female 02/07/2021 4:33 PM CDT Sexual Orientation Straight 02/07/2021 4: 33 PM CDT documented as of this encounter Miscellaneous Notes * Telephone Encounter - Carolina Torrez, RT - 03/08/2024 2:03 PM CDT Remind Patients of our location. [address] [facility]. [facility] If you have any financial questions please call [phone] (ONLY SHARE THIS IF PATIENT INQUIRES) If you need to cancel or reschedule your appointment please call [phone] Ask them the covid screening questions Have [...] then please connect the patient with the patient resource coordinator at [phone]. If a direct number is requested by the patient please give them [phone]. * Telephone Encounter - Carolina Torrez RT - 03/08/2024 2:00 PM CDT Remind Patients of our location. [facility]. [facility], [address] If you have any financial questions please call [phone] (ONLY SHARE THIS IF PATIENT INQUIRES) If you need to cancel or reschedule your appointment please call [phone] Ask them the covid screening questions Have [...] then please connect the patient with the patient resource coordinator at [phone]. If a direct number is requested by the patient please give them [phone]. documented in this encounter Plan of Treatment Not on file documented as of this encounter Visit Diagnoses Not on filedocumented in this encounter Care Teams Nursing Professor Relationship Specialty Start Date End Date Cristian Ling MD [address] [place] [address] PCP - General 10/16/16 documented as of this encounter
--- OUTSIDE RECORDS SUMMARY | 2024-06-12 04:28 | XMS_ITS | Encounter Summary ---
Author Organization [facility] Healthcare Address [address] [place] [address] Care Team Providers Care Structural Architect Name Role Phone Cristian Ling MD Primary Care Prov ider Belinda Quigley DESK SERGEANT Unavailable [phone] Reason for Visit * Reason Comments Successfully Completed Encounter Details Date Type Department Care Team (Late st Contact Info) Description 12/08/2023 SHOP/CHAP Subsequent Outreach [facility] OP CASE MANAGEMENT [address] [place] [address] Belinda Quigley, DESK SERGEANT [address] [facility] ([facility] Mailstop [phone] [place] [address] Social History Tobacco Use Types Packs/Day Years Used Date Smoking Tobacco: Never Passive Smoke Exposure: Current Smokeless Tobacco: Never [facility] Utilities Answer Date Recorded In the past 12 months has [facility] [employer], gas, oil, or water [employer] threatened to shut off services in [...] week 12/04/2023 How often do you attend congregational or zoroastrian serv ices? Never 12/04/2023 Do you belong to any clubs o r organizations such as congregational groups, unions, fraternal or athletic groups, or [...] staff should administer the PHQ-9) 0 09/28/2020 [facility] of Occupat ional Health - Occupational Stress [...] any time in the past 12 m [facility], were you homeless or living in [...] on file Legal Sex Female 7:12 AM STUDENT NURSE Gender Identity Female 02/07/2021 4:33 PM CDT Sexual Orientation Straight 02/07/2021 4: 33 PM CDT documented as of this encounter Progress Notes * Belinda Quigley, DESK SERGEANT - 12/08/2023 9:43 AM CDT OCM spoke [...] filedocumented in this encounter Care Teams Structural Architect Relationship Specialty Start Date End Date Cristian Ling MD [address] [place] [address] PCP - General 10/16/16 Belinda Quigley LCSW [address] [facility] ([facility] Mailstop [id number] [place] [address] SHOP Outpatient Solar Resource Assessor 12/04/23 12/30/23 documented as of this encounter
--- OUTSIDE RECORDS SUMMARY | 2024-06-12 04:28 | XMS_ITS | Encounter Summary ---
Author Organization [facility] Healthcare Address [address] [place] [address] Care Team Providers Care Heater Operator Helper Name Role Phone Cristian Ling MD Primary Care Prov ider Reason for Visit * Reason Comments Successfully Completed Encounter Details Date Type Department Care Team (Late st Contact Info) Description 12/31/2023 SHOP/CHAP Subsequent Outreach [facility] OP CASE MANAGEMENT [address] [place] [address] Belinda Quigley, [facility] [address] [facility] ([facility] Mailstop [phone] [place] [address] Social History Tobacco Use Types Packs/Day Years Used Date Smoking Tobacco: Never Passive Smoke Exposure: Current Smokeless Tobacco: Never [facility] Utilities Answer Date Recorded In the past 12 months has [employer], gas, oil, or water [employer] threatened to shut off services in [...] How often do you attend confucianist or restorationist serv ices? Never 12/04/2023 Do you belong [...] staff should administer the PHQ-9) 0 09/28/2020 [facility] [place] of Occupat ional Health - Occupational Stress [...] on file Legal Sex Female 7:12 AM POWDER PRESS OPERATOR Gender Identity Female 02/07/2021 4:33 [...] on filedocumented in this encounter Care Teams Heater Operator Helper Relationship Specialty Start Date End Date Cristian Ling MD [address] [place] [address] PCP - General 10/16/16 documented as of this encounter
--- OUTSIDE RECORDS SUMMARY | 2024-06-12 04:28 | XMS_ITS | Encounter Summary ---
Author Organization [facility] Address [address] [place] [address] Phone Care Team Providers Care Log Inspector Name Role Phone Cristian Ling MD Primary Care Prov ider Encounter Details Date Type Department Care Team (Late st Contact Info) Description 03/10/2024 Telephone [facility] Cardiology [address] [facility] Advanced Medicine 8th [place] [address] [place] [address] Sami Stafford MD [address] [facility] [address] [place] [address] Social History Tobacco Use Types Packs/Day Years Used Date Smoking Tobacco: Never Passive Smoke Exposure: Current Smokeless Tobacco: Never [facility] Utilities Answer Date Recorded In the past 12 months has [employer], gas, oil, or water [employer] threatened to shut off services in your [...] week 12/04/2023 How often do you attend mosque or jewish serv ices? Never 12/04/2023 Do you belong to any clubs o r organizations such as mosque groups, unions, fraternal or athletic groups, or [...] any time in the past 12 m [facility], were you homeless or [...] on file Legal Sex Female 7:12 AM IMPORT CLERK Gender Identity Female 02/07/2021 4:33 PM CDT [...] on filedocumented in this encounter Care Teams Log Inspector Relationship Specialty Start Date End Date Cristian Ling MD [address] [place] [address] PCP - General 10/16/16 documented as of this encounter
--- OUTSIDE RECORDS SUMMARY | 2024-06-12 04:28 | XMS_ITS | Encounter Summary ---
Author Organization [facility] Healthcare Address [address] [place] [address] Care Team Providers Care Frog Farmer Name Role Phone Cristian Ling MD Primary Care Prov ider Belinda Quigley PUBLIC SPEAKING TEACHER Unavailable [phone] Reason for Visit * Reason Comments Successfully Completed Encounter Details Date Type Department Care Team (Late st Contact Info) Description 12/17/2023 SHOP/CHAP Subsequent Outreach [facility] OP CASE MANAGEMENT [address] [place] [address] Nallely Luciano, RN [address] [facility] [address] [place], [place] [id number] Social History Tobacco Use Types Packs/Day Years Used Date Smoking Tobacco: Never Passive Smoke Exposure: Current Smokeless Tobacco: Never [facility] Utilities Answer Date Recorded In the past 12 months has [employer], gas, oil, or water [employer] threatened to shut off services in your [...] week 12/04/2023 How often do you attend anabaptist or holiness serv ices? Never 12/04/2023 Do you belong to any clubs o r organizations such as anabaptist groups, unions, fraternal or athletic groups, or [...] [facility] - Occupational Stress [...] on file Legal Sex Female 7:12 AM WEDDING TRANSPORTATION DRIVER Gender Identity Female 02/07/2021 4:33 PM [...] with Dr. Ling. The nurse at the [facility] is still working on home health - they are having difficulty finding an agencythat accepts her Essences. Pt also thinks she has BC/BS and is hoping they will cover some in home therapy. She is maybe a little stonger but still cannot walk. Appetite remains diminished. Her [facility] does provide meals. OCM to continue to follow and reminded patient/family to call OCM for questions or concerns. documented in this encounter Plan of Treatment Not on file documented as of this encounter Visit Diagnoses Not on filedocumented in this encounter Care Teams Frog Farmer Relationship Specialty Start Date End Date Cristian Ling MD [address] [place] [address] PCP - General 10/16/16 Belinda Quigley LCSW [address] [facility] ([facility]) Mailstop [phone] [place] [address] SHOP Outpatient Larriman Helper 12/04/23 12/30/23 documented as of this encounter
--- OUTSIDE RECORDS SUMMARY | 2024-06-12 04:28 | XMS_ITS | Encounter Summary ---
Author Organization [facility] Address [address] [place] [address] Phone Care Team Providers Care Integrity Engineer Name Role Phone Cristian Ling MD Primary Care Prov ider Belinda Quigley DIRECTOR OF REGULATORY AFFAIRS Unavailable [phone] Reason for Visit * Reason Onset Date Comments Vertigo 12/17/2023 Encounter Details Date Type Department Care Team (Late st Contact Info) Description 12/17/2023 Telephone [facility] Otolaryngology [address] [place] [address] [address] [place] [address] Silvia Zimmerman, Vertigo Social History Tobacco Use Types Packs/Day Years Used Date Smoking Tobacco: Never Passive Smoke Exposure: Current Smokeless Tobacco: Never [facility] Utilities Answer Date Recorded In the past 12 months has [employer], gas, oil, or water [employer] threatened to shut off services in your [...] How often do you attend latter-day or evangelical serv ices? Never 12/04/2023 Do [...] should administer the PHQ-9) 0 09/28/2020 [facility] - Occupational Stress Questionnaire [...] in the past [address] [facility], were you homeless or living in [...] on file Legal Sex Female 7:12 AM SCHOOL JANITOR Gender Identity Female 02/07/2021 4:33 PM CDT Sexual Orientation Straight 02/07/2021 4: 33 PM CDT documented as of this encounter Miscellaneous Notes * Telephone Encounter - Phoebe Jay - 12/17/2023 11:00 AM CDT Called 1x, mailbox is full documented in this encounter Plan of Treatment Not on file documented as of this encounter Visit Diagnoses Not on filedocumented in this encounter Care Teams Integrity Engineer Relationship Specialty Start Date End Date Cristian Ling MD [address] [place] [address] PCP - General 10/16/16 Belinda Quigley LCSW [address] [facility] ([facility]) Mailstop [phone] [place] [address] SHOP Outpatient Property Controller 12/04/23 12/30/23 documented as of this encounter
--- OUTSIDE RECORDS SUMMARY | 2024-06-12 04:28 | XMS_ITS | Encounter Summary ---
Author Organization [facility] Healthcare Address [address] [place] [address] Care Team Providers Care Form Builder Helper Name Role Phone Cristian Ling MD Primary Care Prov ider Reason for Visit * Auth/Cert Specialty Diagnoses / Procedures Referred By Paula cardona Referred To Contact Diagnoses History of biliary duct stent placement History of biliary duct stent placement [Z98.890] Procedures GA ERCP REMOVE FOREIGN BODY/STENT BILIARY/PANC DUCT ERCP- stent removal Referral ID Status Reason Start Date Expiration Date Visits Re quested Visits Authorized [id number] 1 1 Encounter Details Date Type Department Care Team (Late st Contact Info) Description 01/12/2024 10:15 AM CDT Anesthesia Event [facility] Disease [place] [address] [facility] [address] [place] [address] Don Loaiza MD [address] [place] [address] Antonio Parra CRNA [address] [place] [address] Anesthesia Record Procedure Summary Procedure Name Responsible [...] Passive Smoke Exposure: Current Smokeless Tobacco: Never [employer] Utilities Answer Date Recorded In the past 12 months has [employer], oil, or water [employer] threatened to shut off services in your [...] week 12/04/2023 How often do you attend islam or tenriism serv ices? 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 Gender Identity Female 02/07/2021 4:33 PM CDT Sexual Orientation Straight 02/07/2021 4: 33 PM CDT documented as of this encounter OR Notes * Anesthesia Postprocedure Evaluation - Kaz Valentino MD - 01/12/2024 11:20 AM CDT Patient: Tiera Lobato Procedure Summary Date: 01/12/24 Room / Location: [facility] ROOM 2 / [facility] Anesthesia Start: 1015 Anesthesia Stop: 1054 [...] stenosis with neurogenic claudication 09/29/2020 History of MT (myocardial infarction) 12/10/2017 Primary hypertension 11/06/2012 Coronary artery 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 09/23/2012 Hx of CABG 09/23/2012 Past Medical History: Diagnosis Date Acid reflux Heart murmur High cholesterol History of blood clots 1960s in leg as teenager - had phlebitis History of MT (myocardial infarction) 2012 History of vertebral fracture 2017 HTN (hypertension) IBS (irritable bowel syndrome) Vertigo Past Surgical History: Procedure Laterality Date CARDIOVERSION 03/2023 COLON SURGERY 1992 Repair burst colon CORONARY ARTERY BYPASS GRAFT 2012 Double by-pass - [facility] FLUORO GUIDED INJECTION HIP RIGHT Right 05/16/2022 FLUORO GUIDED INJECTION HIP RIGHT Right 08/15/2022 FLUORO GUIDED INJECTION HIP RIGHT Right 12/10/2022 FLUORO GUIDED INJECTION HIP RIGHT Right 05/13/[address] James ([place], [place]) TOTAL KNEE ARTHROPLASTY Right 2018 OB [...] Medication protocol when under care of a CONSTRUCTION SUPERVISOR Planned anesthesia: MAC Informed Consent: Discussed plan with CONSTRUCTION SUPERVISOR. Anesthesia plan and risks discussed with patient. [...] mL/hr documented in this encounter Care Teams Form Builder Helper Relationship Specialty Start Date End Date Cristian Ling MD [address] [place] [address] PCP - General 10/16/16 documented as of this encounter
--- OUTSIDE RECORDS SUMMARY | 2024-06-12 04:29 | XMS_ITS | Encounter Summary ---
Author Organization [facility] Healthcare Address [address] [place] [address] Care Team Providers Care Human Resources Benefits Coordinator Name Role Phone Cristian Ling MD Primary Care Prov ider Belinda Quigley COCOA BEAN CLEANER Unavailable [phone] Reason for Visit * Reason Comments Successfully Completed Encounter Details Date Type Department Care Team (Late st Contact Info) Description 12/04/2023 SHOP/CHAP Initial Outreach [facility] OP CASE MANAGEMENT [address] [place] [id number] Belinda Quigley, COCOA BEAN CLEANER [address] [facility] ([facility]) Mailstop [phone] [place] [address] Social History Tobacco Use Types Packs/Day Years Used Date Smoking Tobacco: Never Passive Smoke Exposure: Current Smokeless Tobacco: Never [facility] Utilities Answer Date Recorded In the past 12 months has [facility] [employer], gas, oil, or water [employer] threatened to shut off services in your [...] week 12/04/2023 How often do you attend gnosticist or uatsdin serv ices? Never 12/04/2023 Do you belong to any clubs o r organizations such as gnosticist groups, unions, fraternal or athletic groups, or [...] should administer the PHQ-9) 0 09/28/2020 [facility] [place] of Occupat ional Health - Occupational Stress [...] time in the past 12 m [facility], were you homeless or living in a assisted (including now)? 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) Mailstop [phone] [place] [address] SHOP Outpatient Corset Maker 12/04/23 12/30/23 documented as of this encounter
--- OUTSIDE RECORDS SUMMARY | 2024-06-12 04:29 | XMS_ITS | Encounter Summary ---
Author Organization [facility] Healthcare Address [address] [place] [address] Care Team Providers Care Exhibit Cleaner Name Role Phone Cristian Ling MD Primary Care Prov ider Belinda Quigley SCHOOL AGE TEACHER Unavailable [phone] Reason for Visit * Reason Comments Chart Review Encounter Details Date Type Department Care Team (Late st Contact Info) Description 12/07/2023 SHOP/CHAP Subsequent Outreach [facility] OP CASE MANAGEMENT [address] [place] [phone] Lena Cho, SCHOOL AGE TEACHER [address] [facility] ([facility]) Mailstop [phone] [place] [address] Social History Tobacco Use Types Packs/Day Years Used Date Smoking Tobacco: Never Passive Smoke Exposure: Current Smokeless Tobacco: Never [facility] Utilities Answer Date Recorded In the past [address] [facility] [employer], gas, oil, or water [employer] threatened to shut off services in your [...] How often do you attend jewish or sikhism serv ices? 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 Patient presented to ED with [...] home with outpatient support. Contact Belinda Quigley [phone] as additional needs are identified. Lena Cho LCSW documented in this encounter Plan of Treatment Not on file documented as of this encounter Visit Diagnoses Not on filedocumented in this encounter Care Teams Exhibit Cleaner Relationship Specialty Start Date End Date Cristian Ling MD [address] [place] [address] PCP - General 10/16/16 Belinda Quigley LCSW [address] [facility] ([facility]) Mailstop [phone] [place] [address] [facility] Outpatient Photovoltaic Fabrication Technician 12/04/23 12/30/23 documented as of this encounter
--- OUTSIDE RECORDS SUMMARY | 2024-06-12 04:29 | XMS_ITS | Encounter Summary ---
Author Organization [facility] Healthcare Address [address] [place] [address] Care Team Providers Care Product Communications Manager Name Role Phone Cristian Ling MD Primary Care Prov ider Reason for Visit * Reason Comments Vomiting Diarrhea * Auth/Cert (Routine) Specialty Diagnoses / Procedures Referred By Paula cardona Referred To Contact Diagnoses Acute hepatitis Procedures NA Referral ID Status Reason Start Date Expiration Date Visits Re quested Visits Authorized [id number] 1 1 Encounter Details Date Type Department Care Team (Latest Contact Info) Description 11/26/2023 4:35 PM CDT - 11/26/2023 5:20 PM CDT Surgery [facility] [address] [place] [address] Heydi Fenton MD [address] [facility] [address] [place] [address] ESOPHAGOGASTRODUODENOSCOPY ENDOSCOPIC ULTRASOUND Surgery Details Date/Time Status Location OR Service Patient Class Case Class Case Type Trauma Case? 11/26/2023 4:35 PM Posted [facility] ERCP 02 Gastroenterology Inpatient Urgent - 24 hours Panel 1 Procedure LRB Anes Op Region Wound Class Comments ESOPHAGOGASTRODUODENOSCOPY ENDOSCOPIC ULTRASOUND Left Monitor Anesthesia Care N/A ENDO ENDOSCOPIC RETROGRADE CHOLANGIOPANCREATOGRAPHY WITH STENT PLACEMENT N/A Monitor Anesthesia Care N/A RAD S AND I BILIARY DUCTAL SYSTEM N/A General Surgeon Surgeon Role Service Panel Marco Antonio Gusman MD Fellow Gastroe nterology 1 Heydi Fneton MD Primary Gastroentero logy 1 documented in this encounter Social History Tobacco Use Types Packs/Day Years Used Date Smoking Tobacco: Never Passive Smoke Exposure: Current Smokeless Tobacco: Never [facility] Utilities Answer Date Recorded In the past 12 months has [facility] [employer], gas, oil, or water company threatened to [...] How often do you attend baptism or sikhism serv ices? Never 11/25/2023 Do you belong [...] staff should administer the PHQ-9) 0 [facility]/28/2020 [facility] - Occupational Stress Questionnaire Answer Date [...] living in a fci (including now)? No 11/25/2023 Personal Safety Answer Date Recorded Getting School Help Needed Not on file 08/30 Comments No Sex and Gender Information Value Date Recorded Sex Assigned at Not on file Legal Sex Female 7:12 AM END TRIMMER Gender Identity Female 02/07/2021 4:33 PM [...] Care Physician at Discharge: Cristian Ling MD [phone] Admission Date: 11/24/2023 Discharge Date: 12/03/2023 Admission [...] on AC, ApicalVariant HCM, CAD (Dr. Stafford; SC 08/2012 s/p CABG (LAWSON to LAD, SVG [...] is able tolerate low fat diet.Repeat E CORPORATE WEBMASTER in - weeks for stent removal, will [...] moderate compression #Afib on Eliquis Follow[facility]. History of afib with difficulty with rate control requiring cardioversion. Home regimen: amiodarone 200mg daily, metoprolol XL 25mg daily, eliquis 5mg BID. Continue home amiodarone 200mg daily and home metoprolol XL 25mg daily.Restart eliquis 5mg BID. #Chronic Normocytic Anemia Follows with [facility]. Anemia thought to be due to [...] Specialty: Family Medicine Relationship: PCP - General [address] [place] [address] Next Steps: Follow up documented in this [...] Care Everywhere. * Open Cholecystectomy (Discharge Care) (Fijian) * Cellulitis (Discharge Care) (Fijian) * Pancreatitis (AfterCare(R) Instructions(ER/ED)) (Fijian) documented in this encounter Medications at Time [...] Age: 78 y.o. female Admission: 11/24/2023 Bed: [id number] LOS: 9 days Subjective Chief complaint: lft elevation Interval History - No acute concerns - Tolerating diet well - Denies pain or nausea today - Anxious about discharge, but reassured prn med use. DC to [facility] today Objective Scheduled Meds PRN Meds Infusions [...] last 24 hours. For additional labs/trends, see [facility].) I have reviewed the laboratory results. Imaging Review No results found. I have independently reviewed and interpreted pateint's chart in [facility]. Assessment/Plan Pancreatitis Assessment & Plan Post -procedural [...] anemia, unspecified Assessment & Plan Follows with [facility]. Anemia thought to be due to iron deficiency as well as CKD stage IIIb. Received iron infusion in 09/2023. On admission hgb 8.4 (bl 7-9). Iron 72, ferritin 1715. - Stable H/H, last 8.5 A-fib (CMS/HCC) (HCC) Assessment & Plan Follows with [facility]. History of afib with difficulty with [...] Living Facility, Home Health PT (Return to [facility] at [facility].) / Supplementary Attestation Discharge Planning I have [...] treatment team and contact the PT or FULL SERVICE SUPERVISOR currently assigned to this patient. If a physical therapy clinician is not assigned to this patient, please call [phone]. 12/02/23 0830 General Chart Reviewed Yes Session [...] year. She has been living in the [facility] for almost two years. Prior Function Level of [place] Independent with ambulation;Independent functional transfers Lives With Alone Receives Help From Facility staff (Staff is available time study observer. She does have a son who lives [...] with Outstretched Arm While Standing 0 9. Imaging Science Professor Object from Floor from a Standing Position [...] Health PT (Return to prior living at [facility].) PT Recommendation/Plan Comments Pt informed of PT [...] Age: 78 y.o. female Admission: 11/24/2023 Bed: [id number] LOS: 8 days Subjective Chief complaint: nausea [...] anemia, unspecified Assessment & Plan Follows with Health system Hematology. Anemia thought to be due to iron deficiency as well as CKD stage IIIb. Received iron infusion in 09/2023. On admission hgb 8.4 (bl 7-9). Iron 72, ferritin 1715. - Stable H/H, last 8.5 A-fib (CMS/HCC) (HCC) Assessment & Plan Follows with [facility]. History of afib with difficulty with [...] 35 minutes which was spent performing a ygdx-hd-hvdv encounter and personally completing the provider-level activities [...] Afib s/p cardioversion 02/2023 on Eliquis, CAD, SC in 2012 s/p CABG, apical variant HCM, CKD III, and chronic anemia who presents with nausea/vomiting and leg swelling. Objective Past Medical History: Diagnosis Date Acid reflux Heart murmur High cholesterol History of blood clots 1960s in leg as teenager - had phlebitis History of SC (myocardial infarction) 2013 History of vertebral fracture 2018 HTN (hypertension) IBS (irritable bowel syndrome) Vertigo Past Surgical History: Procedure Laterality Date CARDIOVERSION 03/2023 COLON SURGERY 1992 Repair burst colon CORONARY ARTERY BYPASS GRAFT 2012 Double by-pass - [facility] FLUORO GUIDED INJECTION HIP RIGHT Right 05/16/2022 FLUORO GUIDED INJECTION HIP RIGHT Right 08/15/2022 FLUORO GUIDED INJECTION HIP RIGHT Right 12/10/2022 FLUORO GUIDED INJECTION HIP RIGHT Right 05/13/[address] James ([place], [place]) TOTAL KNEE ARTHROPLASTY Right 2018 Social [...] 0.88 1.18* 1.23* < > 1.19* 1.22* [id number] mL/min/1.73 m2 68 48* 45* < > [...] Chol Diet effective now Question Answer Comment ([facility]) Diet type Restricted Fat / Sodium Restriction: [...] reports decreased po intake x 4 days FULL SERVICE SUPERVISOR. Reports 10# recent wt loss. Per chart review, pt has lost 8# x 8 months (not significant). Pt declined all oral nutrition supplements. Denies NV, reports last BM FULL SERVICE SUPERVISOR. Reports good dentition. Pt reports when things [...] Weight changes Graham Zafar MS, RD, LD [facility] * Oscar De La Torre MD - 12/01/2023 12:40 PM CDT Daily Progress Note Division of Hospital Medicine Name: Tiera Lobato : 1945 Today's Date: December 01, 2023 Age: 78 y.o. female Admission: 11/24/2023 Bed: [id number] LOS: 7 days Subjective Chief complaint: Slightly [...] anemia, unspecified Assessment & Plan Follows with [facility]. Anemia thought to be due to iron deficiency as well as CKD stage IIIb. Received iron infusion in 09/2023. On admission hgb 8.4 (bl 7-9). Iron 72, ferritin 1715. - Stable H/H, last 8.5 A-fib (CMS/HCC) (HCC) Assessment & Plan Follows with [facility]. History of afib with difficulty with [...] 45 minutes which was spent performing a ymgf-mu-skoy encounter and personally completing the provider-level activities [...] Age: 78 y.o. female Admission: 11/24/2023 Bed: [id number] LOS: 6 days Subjective Chief complaint: Feels [...] anemia, unspecified Assessment & Plan Follows with [facility]. Anemia thought to be due to iron deficiency as well as CKD stage IIIb. Received iron infusion in 09/2023. On admission hgb 8.4 (bl 7-9). Iron 72, ferritin 1715. - Stable H/H A-fib (CMS/HCC) (HCC) Assessment & Plan Follows with [facility]. History of afib with difficulty with [...] 42 minutes which was spent performing a qpst-xn-arob encounter and personally completing the provider-level activities [...] Age: 78 y.o. female Admission: 11/24/2023 Bed: [id number] LOS: 5 days Subjective Chief complaint: Denies [...] anemia, unspecified Assessment & Plan Follows with Health system Hematology. Anemia thought to be due to iron deficiency as well as CKD stage IIIb. Received iron infusion in 09/2023. On admission hgb 8.4 (bl 7-9). Iron 72, ferritin 1715. - Monitor CBC A-fib (CMS/HCC) (HCC) Assessment & Plan Follows with [facility]. History of afib with difficulty with [...] 43 minutes which was spent performing a sbph-ik-uhxl encounter and personally completing the provider-level activities [...] moderate compression #Afib on Eliquis Follows with [facility]. History of afib with difficulty with rate control requiring cardioversion. Home regimen: amiodarone 200mg daily, metoprolol XL 25mg daily, eliquis 5mg BID. PLAN - continue home amiodarone 200mg daily - continue home metoprolol XL 25mg daily - restart eliquis 5mg BID #Chronic Normocytic Anemia Follows with [facility]. Anemia thought to be due to [...] a possible Tb exposure (roommate), [facility] Supplementary Attestation Today, I am treating [...] tomorrow 11/27 #Chronic Normocytic Anemia Follows with [facility]. Anemia thought to be due to [...] Maloney MD - 11/27/2023 7:49 AM CDT [facility] Acute Care Emergency Surgery Consult Progress Note [...] 02/2023 on Eliquis (last taken 11/23/23), CAD, SC in 2012 s/p CABG, HTN, HLD, apical [...] Ensure abdominal pain improves post procedure - [facility] will sign off at this time. Please feel free to reach out to the number below for any questions or concerns. Please call the [facility] Inpatient Consult Phone with any questions or concerns regarding this patient. Tima Rico MD Resident Physician General Surgery ACCS Inpatient Consult [facility] ED Consult [facility] Outpatient Clinic - option 1 Cosigned [...] Section of Acute and Critical Care Surgery [facility] * Carmen West MD - 11/26/2023 6:51 PM CDT [facility] Acute Care Emergency Surgery Consult Progress Note [...] 02/2023 on Eliquis (last taken 11/23/23), CAD, SC in 2012 s/p CABG, HTN, HLD, apical [...] pain improves post procedure Please call the [facility] Inpatient Consult Phone with any questions or concerns regarding this patient. Carmen West MD Resident Physician General Surgery [facility] Inpatient Consult [facility] ED Consult [facility] Outpatient Clinic - option 1 Cosigned [...] Section of Acute and Critical Care Surgery [facility] * Janice Molina MD [...] elevated transaminases #Afib on Eliquis Follows with [facility]. History of afib with difficulty with rate control requiring cardioversion. Home regimen: amiodarone 200mg daily, metoprolol XL 25mg daily, eliquis 5mg BID. PLAN - continue home amiodarone 200mg daily - continue home metoprolol XL 25mg daily - hold home eliquis for procedure #Chronic Normocytic Anemia Follows with [facility]. Anemia thought to be due to [...] Afib s/p cardioversion 02/2023 on Eliquis, CAD, SC in 2012 s/p CABG, apical variant HCM, CKD III, and chronic anemia who presents with nausea/vomiting and leg swelling. Objective Past Medical History: Diagnosis Date Acid reflux Heart murmur High cholesterol History of blood clots 1960s in leg as teenager - had phlebitis History of SC (myocardial infarction) 2012 History of vertebral fracture 2017 HTN (hypertension) IBS (irritable bowel syndrome) Vertigo Past Surgical History: Procedure Laterality Date CARDIOVERSION 03/2023 COLON SURGERY 1992 Repair burst colon CORONARY ARTERY BYPASS GRAFT 2013 Double by-pass - [facility] FLUORO GUIDED INJECTION HIP RIGHT Right 05/16/2022 FLUORO GUIDED INJECTION HIP RIGHT Right 08/15/2022 FLUORO GUIDED INJECTION HIP RIGHT Right 12/10/2022 FLUORO GUIDED INJECTION HIP RIGHT Right 05/13/[address] James ([place], [place]) TOTAL KNEE ARTHROPLASTY Right 2017 Social [...] BUN SERUM mg/dL 13 CREATININE mg/dL 1.22* [id number]-[id number] mL/min/1.73 m2 46* CALCIUM mg/dL 9.8 ALBUMIN [...] reports decreased po intake x 4 days FULL SERVICE SUPERVISOR. Reports 10# recent wt loss. Per chart review, pt has lost 8# x 8 months (not significant). Pt declined all oral nutrition supplements. Denies NV, reports last BM FULL SERVICE SUPERVISOR. Reports good dentition. Pt reports when things [...] as teenager - had phlebitis History of SC (myocardial infarction) 2012 History of vertebral fracture 2017 HTN (hypertension) IBS (irritable bowel syndrome) Vertigo Past Surgical History: Procedure Laterality Date CARDIOVERSION 03/2023 COLON SURGERY 1992 Repair burst colon CORONARY ARTERY BYPASS GRAFT 2012 Double by-pass - [facility] FLUORO GUIDED INJECTION HIP RIGHT Right 05/16/2022 FLUORO GUIDED INJECTION HIP RIGHT Right 08/15/2022 FLUORO GUIDED INJECTION HIP RIGHT Right 12/10/2022 FLUORO GUIDED INJECTION HIP RIGHT Right 05/13/[address] James ([place], [place]) TOTAL KNEE ARTHROPLASTY Right 2017 (Not [...] possible procedure #Chronic Normocytic Anemia Follows with Health system Hematology. Anemia thought to be due to [...] Female Attending MD: Heydi Fenton M.D. Room: [facility] ROOM 2 Note Status: Finalized Procedure: [...] obtained.The Olympus curved linear array therapeutic endosonoscope [id number] was introduced through the mouth, and advanced [...] ERCP [facility] Patient Name: Tiera oLbato Procedure Date: 11/26/2023 4:01 PM Date of : 1945 Admit Type: Inpatient Age: 78 Gender: Female Attending MD: Heydi Fenton M.D. Room: [facility] ROOM 2 Note Status: Finalized Procedure: ERCP Indications: Bile duct stone seen on EUS and on CTAP, normal bilirubin Referring MD: Cristian Brantley M.D. Providers: Heydi Fenton M.D., Marco Antonio Gusman M.D. Medicines: Monitored Anesthesia Care, Indomethacin 100 mg DE Complications: No immediate complications. Estimated Blood Loss: [...] discussed and informed consent was obtained. The [id number] Duodenoscope was introduced through the mouth, and used to inject contrast into and used to inject contrast into the bile duct. The ERCP was accomplished without difficulty. The patient tolerated the procedure well. Findings: A district scout executive film of the abdomen was obtained. Surgical [...] the days following this procedure please call [phone]. After hours and evenings please call [phone] and speak to the GI fellow visual communications instructor. Please tell the fellow that Dr. Shid [...] from the original note were not included. [facility] Team A Trauma Surgery History and Physical Date of Evaluation: 11/25/23 Sex: female Date of : 1945 Consulting provider: Consult to General Surgery Consult performed by: Carmencita Small MD Consult ordered by: Elio Lewis MD Trauma Level Consult Assessment/Plan: Tiera Lobato is a 78 y.o. female with PMH of IBS, Afib s/p cardioversion 02/2023 on Eliquis (last taken 11/23/23), CAD, SC in 2012 s/p CABG, HTN, HLD, apical [...] Stable Disposition of Patient: will follow on [facility] Consult service FOLLOWUP REQUIRED: Patient should call [phone] - option 1 after discharge during normal business hours (M-F) to schedule a follow-up appointment in 1 week at the Acute and Critical Care Surgery Clinic in the 3rd floor of the [facility] Kaitlin [facility] Trauma Surgery November 25, 2023 3:51 PM [facility] ED Consult [facility] Outpatient Clinic - option 1 Discussed [...] coming to the ED via EMS from [facility] in [facility]. Patient has had diarrhea and vomiting for the past 5 days. HPI: Tiera Lobato is a 78 y.o. female with PMH of IBS, Afib s/p cardioversion 02/2023 on Eliquis (last taken 11/23/23), CAD, SC in 2012 s/p CABG, HTN, HLD, apical [...] RLE hematoma, seen on US to be [id number] large. Pt reports it has decreased in [...] as teenager - had phlebitis History of SC (myocardial infarction) 2012 History of vertebral fracture 2017 HTN (hypertension) IBS (irritable bowel syndrome) Vertigo Hospitalized: none Surgical History: Past Surgical History: Procedure Laterality Date CARDIOVERSION 03/2023 COLON SURGERY 1992 Repair burst colon CORONARY ARTERY BYPASS GRAFT 2012 Double by-pass - [facility] FLUORO GUIDED INJECTION HIP RIGHT Right 05/16/2022 FLUORO GUIDED INJECTION HIP RIGHT Right 08/15/2022 FLUORO GUIDED INJECTION HIP RIGHT Right 12/10/2022 FLUORO GUIDED INJECTION HIP RIGHT Right 05/13/[address] James ([place], [place]) TOTAL KNEE ARTHROPLASTY Right 2018 Family [...] Response: Oriented Best Motor Response: Obeys commands [place] Coma Scale Score: 15 Resuscitation Phase & [...] and apply compression dressing. Karen Hawk MD [facility] Acute and Critical Care Surgery [facility] * Melisa Pritchett MD - 11/24/2023 3:32 PM CDTAssociated Order(s): IP CONSULT TO GASTROENTEROLOGY Biliary Initial Consult Chief complaint: nausea and vomiting Reason for consult: ERCP Requesting provider: Bolivar Llamas MD HPI: This is a 78 y.o. female with PMH IBS, Afib s/p cardioversion 02/2023 on Eliquis, CAD, SC in 2013 s/p CABG, apical variant HCM, [...] as teenager - had phlebitis History of SC (myocardial infarction) 2012 History of vertebral fracture 2017 HTN (hypertension) IBS (irritable bowel syndrome) Vertigo Past Surgical History: Procedure Laterality Date CARDIOVERSION 03/2023 COLON SURGERY 1992 Repair burst colon CORONARY ARTERY BYPASS GRAFT 2013 Double by-pass - [facility] FLUORO GUIDED INJECTION HIP RIGHT Right 05/16/2022 FLUORO GUIDED INJECTION HIP RIGHT Right 08/15/2022 FLUORO GUIDED INJECTION HIP RIGHT Right 12/10/2022 FLUORO GUIDED INJECTION HIP RIGHT Right 05/13/[address] James ([place], [place]) TOTAL KNEE ARTHROPLASTY Right 2018 (Not [...] Afib s/p cardioversion 02/2023 on Eliquis, CAD, SC in 2012 s/p CABG, apical variant HCM, [...] 12:36 PM CDT Attempted to call report [facility] unable to reach nurse. left to call [...] Afib s/p cardioversion 02/2023 on Eliquis, CAD, SC in 2012 s/p CABG, HTN HLD, apical [...] changes in urination. History provided by: Patient rock drill operator used: No Patient History: Patient Active Problem List Diagnosis Date Noted ??? Iron deficiency anemia, unspecified 10/05/2023 ??? NSVT (nonsustained ventricular tachycardia) ([facility]) 08/20/2023 ??? A-fib (CMS/HCC) ([facility]) 02/17/2023 ??? Atrial fibrillation (CMS/HCC) ([facility]) 01/13/2023 ??? Apical variant hypertrophic cardiomyopathy (HCC) 12/05/2022 ??? Paroxysmal atrial fibrillation (CMS/HCC) ([facility]) 12/05/2022 ??? Right hip pain 11/22/2021 ??? Other osteoporosis without current pathological fracture 03/07/2021 ??? Lumbar stenosis with neurogenic claudication 09/29/2020 ??? History of SC (myocardial infarction) 12/10/2017 ??? Primary hypertension 11/06/2012 ??? Coronary artery disease involving match-e-be-nash-she-wish band coronary artery of match-e-be-nash-she-wish band heart without angina pectoris 09/23/2012 ??? Hx of CABG 09/23/2012 Past Medical History: Diagnosis Date ??? Acid reflux ??? Heart murmur ??? High cholesterol ??? History of blood clots 1960s in leg as teenager - had phlebitis ??? History of SC (myocardial infarction) 2012 ??? History of vertebral [...] Right 05/13/2023 ??? MICRODISCECTOMY 1998 Dr. James ([place], [place]) ??? TOTAL KNEE ARTHROPLASTY Right 2018 [...] coming to the ED via EMS from [facility] in [facility]. Patient has had diarrhea and vomiting for the past 5 days. documented in this encounter Miscellaneous Notes * Plan of Care - Suraj Mendes RN - 12/03/2023 12:22 PM CDT 12/03/23 1222 Discharge Summary Discharge Disposition Assisted living Specify Facility [facility] Facility Contact Number [phone] Equipment/Provider Needs No Home Needs Identified Anticipated [...] discharge needs arise, please contact the covering case managers. Suraj Mendes RN Case Manager * Plan [...] Shift: monitor labs/vitals, pain mgmt, promote rest Nursing Home Patient Centered Goal for Treatment: safe discharge * Plan of Care - Suraj Mendes RN - 12/02/2023 3:14 PM CDT 12/02/23 1514 Discharge Planning Support System Family members Anticipated discharge level of care Assisted living Facility Information and Contact [facility] Progression of Care Update Per Medical Chart/Rounds/IDR: IDR ADD: 12/02 Education Needs Identified (plan): CM sent referrals in [facility] for [facility] (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 Anticipate discharge back to [facility] tomorrow F/U Appointments: PCP appt 12/10 Patient's Identified Problem/Goal Problem:?Ensure acute medical needs are met and that patient has a safe discharge plan. Goal:?Secure a discharge plan that patient/family are agreeable with?and ensure patient has continuum of care. Patient and/or family are agreeable with plan. pararescue manager will continue to follow and assist with discharge planning as needed. If any further discharge needs arise, please contact the covering case managers. * Plan of Care - Baylee Andrea [...] Afib s/p cardioversion 02/2023 on Eliquis, CAD, SC in 2012 s/p CABG, apical variant HCM, [...] Afib s/p cardioversion 02/2023 on Eliquis, CAD, SC in 2012 s/p CABG, apical variant HCM, [...] Afib s/p cardioversion 02/2023 on Eliquis, CAD, SC in 2013 s/p CABG, apical variant HCM, [...] Problem(s): Iron deficiency anemia, unspecified Follows with [facility]. Anemia thought to be due to [...] Associated Problem(s): A-fib (CMS/HCC) (HCC) Follows with Health system Cardiology. History of afib with difficulty with [...] on AC, ApicalVariant HCM, CAD (Dr. Stafford; SC 08/2012 s/p CABG (LAWSON to LAD, SVG [...] is able tolerate low fat diet.Repeat E CORPORATE WEBMASTER in 6-8 weeks for stent removal, will [...] moderate compression #Afib on Eliquis [facility]. History of afib with difficulty with rate control requiring cardioversion. Home regimen: amiodarone 200mg daily, metoprolol XL 25mg daily, eliquis 5mg BID. Continue home amiodarone 200mg daily and home metoprolol XL 25mg daily.Restart eliquis 5mg BID. #Chronic Normocytic [facility] Anemia thought to be due to [...] AC, Apical Variant HCM, CAD (Dr. Stafford; SC 08/2012 s/p CABG (LAWSON to LAD, SVG to OM), HTN, CKD stage 3b (b/l cr 1.2 -1.4), and Vertigo who was admitted with h epatitis/cholodocholithaisis on 11/24/23 and now being transferred to hospitalist after prior roomate being ruled out for TB. History has been obtained from the patient and indepednent review of our multiple records systems including [employer]. Below is a sumamry of above sources. [...] on 11/28/23 and lipase demonstrated an elevation [id number]. She was made NPO and started on [...] monitor CBC #Chronic Normocytic Anemia [facility]. Anemia thought to be due to [...] Afib s/p cardioversion 02/2023 on Eliquis, CAD, SC in 2012 s/p CABG, apical variant HCM, [...] Afib s/p cardioversion 02/2023 on Eliquis, CAD, SC in 2012 s/p CABG, apical variant HCM, CKD III, and chronic anemia who presents with nausea/vomiting and leg swelling. (H&P) MD Tracy: #Afib on Eliquis Follows with [facility]. History of afib with difficulty with [...] specify below Additional Provider Response: References: Source: [facility], 2018, page 3. From the ICD-10-CM [...] medical record. Estelle Clark RN, BSN Clinical Crusher Supervisor [email or web address] [phone] * Initial Assessments - Marce Browne RN [...] arranged?: No (11/26/23 1007) Health Insurance Coverage: [facility]. Prescription Coverage: not sure Pharmacy: [facility] [address] [address] Primary Care Provider: Cristian Lign MD- verified. Prior to Admission: Functional Status: [...] Yes, patient can return Care Facility Name: [facility] Facility contact name and number:: [facility] / [phone] Steps in home?: No steps inside or outside Medication management: Independent (11/25/231812) Potential discharge needs include: pararescue manager will follow for post acute discharge [...] Additional Information: Confirmed address and phone to [employer]. Patient independent in ADLS. Lives in Assisted [...] Collaboration with Patient, Provider, Direct Care Nurse, Food Service Representative, and other members of theHealth Care Team to assure needed interventions completed. 2. Return patient to optimal level of self-care post discharge. 3. Drawing In Machine Tender will follow for Discharge Planning - interventions [...] note. 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 [place] [address] * Type and screen (12/01/2023 10:06 PM CDT) ABO Rh B Negative Cheri, indirect Negative [facility] Blood 12/01/2023 10:0 6 PM CDT 12/01/2023 10:34 PM CDT Narrative [facility] - 12/01/2023 11:29 PM CDT Has the patient had Daratumumab or Isatuximab in the past 6 months?->Unknown Oscar De La Torre MD LAB BLOOD BANK TEST ORDERAB LES Final Result [facility] [place] [address] * (ABNORMAL) Comprehensive metabolic panel (12/01/2023 10:06 PM CDT) Sodium 139 135 - 145 mmol/L Potassium, pl 3.7 3.3 - 4.9 mmol/L [facility] Chloride 104 97 - 110 mmol/L [facility] CO2 26 22 - 32 mmol/L [facility] Anion gap 9 2 - 15 mmol/L [facility] BUN 7 6 - 25 mg/dL [facility] Creatinine 0.97 0.60 - 1.10 mg/dL [facility] Glucose 93 70 - 199 mg/dL [facility] Comment: Interpretive Data Fasting glucose >/= [...] 2022. Calcium 9.2 8.5 - 10.3 mg/dL [facility] Bilirubin, total 0.6 0.1 - 1.2 mg/dL [facility] Protein, pl 5.8(L) 6.5 - 8.5 g/dL [facility] Albumin 3.2(L) 3.5 - 5.0 g/dL [facility] Alk phos 121 40 - 130 Units/L [facility] ALT 195(H) 7 - 45 Units/L [facility] AST 88(H) 10 - 45 Units/L [facility] Blood 12/01/2023 10:0 6 PM CDT 12/01/2023 10:38 PM CDT Oscar De La Torre MD LAB BLOOD ORDERABLES Final Result Performing Organization Address [facility] Co de Phone Number [facility] [place] [address] * (ABNORMAL) CBC without differential (12/01/2023 10:06 PM CDT) WBC 4.0 3.8 - 9.9 K/cumm Hgb 8.6(L) 11.9 - 15.5 g/dL [facility] Hct 27.9(L) 35.6 - 45.5 % [facility] Plt 216 150 - 400 K/cumm [facility] MPV 12.6(H) 9.1 - 12.3 fL [facility] RBC 3.07(L) 3.90 - 5.20 M/cumm [facility] MCV 90.9 81.3 - 96.4 fL [facility] MCH 28.0 27.1 - 33.3 pg [facility] MCHC 30.8(L) 32.3 - 35.7 g/dL [facility] RDW CV 21.3(H) 11.1 - 14.9 % [facility] RDW SD 69.9(H) 35.7 - 48.1 fL [facility] NRBC abs 0.00 0.00 - 0.01 K/cumm [facility] Blood 12/01/2023 10:0 6 PM CDT 12/01/2023 10:38 PM CDT Oscar De La Torre MD LAB BLOOD ORDERABLES Final Result Performing Organization Address [facility]/ZIP Co de Phone Number [facility] [place] [address] * eGFR (11/29/2023 9:59 PM CDT) eGFR [...] Torre MD LAB BLOOD ORDERABLES Final Result [facility] Department [place] [address] * (ABNORMAL) Differential, auto (11/29/2023 9:59 PM CDT) Neutrophil abs 2.7 1.5 - 6.5 K/cumm Imm gran abs 0.0 0.0 - 0.1 K/cumm [facility] Lymphocyte abs 0.7(L) 0.8 - 3.3 K/cumm [facility] Monocyte abs 0.6 0.2 - 0.8 K/cumm [facility] Eosinophil abs 0.1 0.0 - 0.5 K/cumm [facility] Basophil abs 0.0 0.0 - 0.1 K/cumm [facility] Neutrophil pct 64.1 % [facility] Comment: Interpretive Data Percent cell count reference ranges are not reported, since discordance with absolute values may lead to misinterpretation of CBC data. Current Interpretive Data was last revised on 2017. Imm gran pct 0.2 % [facility] Comment: Interpretive Data Percent cell count reference ranges are not reported, since discordance with absolute values may lead to misinterpretation of CBC data. Current Interpretive Data was last revised on 2017. Lymphocyte pct 17.6 % [facility] Comment: Interpretive Data Percent cell count reference ranges are not reported, since discordance with absolute values may lead to misinterpretation of CBC data. Current Interpretive Data was last revised on 2017. Monocyte pct 15.4 % [facility] Comment: Interpretive Data Percent cell count reference ranges are not reported, since discordance with absolute values may lead to misinterpretation of CBC data. Current Interpretive Data was last revised on 2017. Eosinophil pct 1.7 % [facility] Comment: Interpretive Data Percent cell count reference ranges are not reported, since discordance with absolute values may lead to misinterpretation of CBC data. Current Interpretive Data was last revised on 2017. Basophil pct 1.0 % [facility] Comment: Interpretive Data Percent cell count reference ranges are not reported, since discordance with absolute values may lead to misinterpretation of CBC data. Current Interpretive Data was last revised on 2017. Blood 11/29/2023 9:59 PM CDT 11/29/2023 10:35 PM CDT us Oscar De La Torre MD LAB BLOOD ORDERABLES Final Result [facility] [place] [address] * (ABNORMAL) Comprehensive metabolic panel (11/29/2023 9:59 PM CDT) Sodium 136 135 - 145 mmol/L Potassium, pl 3.6 3.3 - 4.9 mmol/L [facility] Chloride 103 97 - 110 mmol/L [facility] CO2 24 22 - 32 mmol/L [facility] Anion gap 9 2 - 15 mmol/L [facility] BUN 9 6 - 25 mg/dL [facility] Creatinine 0.88 0.60 - 1.10 mg/dL [facility] Glucose 88 70 - 199 mg/dL [facility] Comment: Interpretive Data Fasting glucose >/= [...] 2022. Calcium 8.6 8.5 - 10.3 mg/dL [facility] Bilirubin, total 0.7 0.1 - 1.2 mg/dL [facility] Protein, pl 5.8(L) 6.5 - 8.5 g/dL [facility] Albumin 3.1(L) 3.5 - 5.0 g/dL [facility] Alk phos 123 40 - 130 Units/L [facility] ALT 263(H) 7 - 45 Units/L [facility] AST 104(H) 10 - 45 Units/L [facility] Blood 11/29/2023 9:59 PM CDT 11/29/2023 10:34 PM CDT us Oscar De La Torre MD LAB BLOOD ORDERABLES Final Result [facility] [place] [address] * (ABNORMAL) CBC with auto differential (11/29/2023 9:59 PM CDT) [facility] WBC 4.2 3.8 - 9.9 K/cumm Hgb 8.5(L) 11.9 - 15.5 g/dL [facility] Hct 26.3(L) 35.6 - 45.5 % [facility] Plt 200 150 - 400 K/cumm [facility] MPV 12.3 9.1 - 12.3 fL [facility] RBC 2.96(L) 3.90 - 5.20 M/cumm [facility] MCV 88.9 81.3 - 96.4 fL [facility] MCH 28.7 27.1 - 33.3 pg [facility] MCHC 32.3 32.3 - 35.7 g/dL [facility] RDW CV 21.3(H) 11.1 - 14.9 % [facility] RDW SD 68.0(H) 35.7 - 48.1 fL [facility] NRBC abs 0.00 0.00 - 0.01 K/cumm [facility] Blood 11/29/2023 9:59 PM CDT 11/29/2023 10:35 PM CDT Oscar De La Torre MD LAB BLOOD ORDERABLES Final Result [facility] [place] [address] * (ABNORMAL) eGFR (11/28/2023 5:49 PM CDT) [facility] eGFR 48(L) >=60 mL/min/1. 73 m2 Comment: [...] MD LAB BLOOD ORDERABLES Final R esult [facility] [place] [address] * (ABNORMAL) Differential, auto (11/28/2023 5:49 PM CDT) Pathologist [facility] Neutrophil abs 2.6 1.5 - 6.5 K/cumm Imm gran abs 0.0 0.0 - 0.1 K/cumm [facility] Lymphocyte abs 0.6(L) 0.8 - 3.3 K/cumm [facility] Monocyte abs 0.4 0.2 - 0.8 K/cumm [facility] Eosinophil abs 0.0 0.0 - 0.5 K/cumm [facility] Basophil abs 0.0 0.0 - 0.1 K/cumm [facility] Neutrophil pct 70.3 % [facility] Comment: Interpretive Data Percent cell count reference ranges are not reported, since discordance with absolute values may lead to misinterpretation of CBC data. Current Interpretive Data was last revised on 2017. Imm gran pct 0.3 % [facility] Comment: Interpretive Data Percent cell count reference ranges are not reported, since discordance with absolute values may lead to misinterpretation of CBC data. Current Interpretive Data was last revised on 2017. Lymphocyte pct 15.8 % [facility] Comment: Interpretive Data Percent cell count reference ranges are not reported, since discordance with absolute values may lead to misinterpretation of CBC data. Current Interpretive Data was last revised on 2017. Monocyte pct 11.7 % [facility] Comment: Interpretive Data Percent cell count reference ranges are not reported, since discordance with absolute values may lead to misinterpretation of CBC data. Current Interpretive Data was last revised on 2017. Eosinophil pct 1.1 % [facility] Comment: Interpretive Data Percent cell count reference ranges are not reported, since discordance with absolute values may lead to misinterpretation of CBC data. Current Interpretive Data was last revised on 2017. Basophil pct 0.8 % [facility] Comment: Interpretive Data Percent cell count reference ranges are not reported, since discordance with absolute values may lead to misinterpretation of CBC data. Current Interpretive Data was last revised on 2017. Blood 11/28/2023 5:49 PM CDT 11/28/2023 6:04 PM CDT us Jose Roberto Hernandez MD LAB BLOOD ORDERABLES Final R esult Performing Organization Address City/[facility]/ZIP Co de Phone Number [facility] [place] [address] * Magnesium (11/28/2023 5:49 PM CDT) Magnesium 2.1 1.4 - 2.5 mg/dL Blood 11/28/2023 5:49 PM CDT 11/28/2023 6:04 PM CDT us Jose Roberto Hernandez MD LAB BLOOD ORDERABLES Final R esult Performing Organization Address City/[facility]/ZIP Co de Phone Number [facility] [place] [address] * (ABNORMAL) Comprehensive metabolic panel (11/28/2023 5:49 PM CDT) Sodium 138 135 - 145 mmol/L Potassium, pl 3.9 3.3 - 4.9 mmol/L [facility] Chloride 104 97 - 110 mmol/L [facility] CO2 23 22 - 32 mmol/L [facility] Anion gap 11 2 - 15 mmol/L [facility] BUN 18 6 - 25 mg/dL [facility] Creatinine 1.18(H) 0.60 - 1.10 mg/dL [facility] Glucose 87 70 - 199 mg/dL [facility] Comment: Interpretive Data Fasting glucose >/= [...] 2022. Calcium 8.8 8.5 - 10.3 mg/dL [facility] Bilirubin, total 0.8 0.1 - 1.2 mg/dL [facility] Protein, pl 5.9(L) 6.5 - 8.5 g/dL [facility] Albumin 3.4(L) 3.5 - 5.0 g/dL [facility] Alk phos 133(H) 40 - 130 Units/L [facility] ALT 338(H) 7 - 45 Units/L [facility] AST 114(H) 10 - 45 Units/L [facility] Blood 11/28/2023 5:49 PM CDT 11/28/2023 6:04 PM CDT us Jose Roberto Hernandez MD LAB BLOOD ORDERABLES Final R esult [facility] [place] [address] * (ABNORMAL) CBC with auto differential (11/28/2023 5:49 PM CDT) Pathologist [facility] WBC 3.7(L) 3.8 - 9.9 K/cumm Hgb 8.0(L) 11.9 - 15.5 g/dL [facility] Hct 25.5(L) 35.6 - 45.5 % [facility] Plt 208 150 - 400 K/cumm [facility] MPV 11.6 9.1 - 12.3 fL [facility] RBC 2.85(L) 3.90 - 5.20 M/cumm [facility] MCV 89.5 81.3 - 96.4 fL [facility] MCH 28.1 27.1 - 33.3 pg [facility] MCHC 31.4(L) 32.3 - 35.7 g/dL [facility] RDW CV 20.9(H) 11.1 - 14.9 % [facility] RDW SD 67.4(H) 35.7 - 48.1 fL [facility] NRBC abs 0.00 0.00 - 0.01 K/cumm [facility] Blood 11/28/2023 5:49 PM CDT 11/28/2023 6:04 PM CDT us Jose Roberto Hernandez MD LAB BLOOD ORDERABLES Final R esult [facility] [place] [address] * Type and screen (11/28/2023 5:49 PM CDT) Pathologist [facility] ABO Rh B Negative Cheri, indirect Negative [facility] Blood 11/28/2023 5:49 PM CDT 11/28/2023 6:02 PM CDT Narrative [facility] - 11/28/2023 7:02 PM CDT Has the patient had Daratumumab or Isatuximab in the past 6 months?->Unknown us Duong Choi MD LAB BLOOD BANK TEST MYRNA FERNANDEZ Final Result Performing Organization Address [facility] Co de Phone Number [facility] [place] [address] * Stool culture Stool Rectum (11/28/2023 6:32 AM CDT) Direct Specimen Exam Shiga Toxin Testing: Antigen detection assay for Shiga-toxin NEGATIVE for Shiga Toxin 1 and Shiga Toxin 2. Report Final Report: No growth of enteric bacterial pathogens [facility] Stool (Rectum) 11/28/2023 6: 32 AM CDT 11/28/2023 7:45 AM CDT Narrative [facility] - 12/02/2023 8:52 AM CDT Testing performed by [facility] ([phone]). Routine stool cultures include procedures to detect Salmonella, Shigella, Edwardsiella, Aeromonas, Pleisiomonas, Campylobacter, Yersinia, E. coli O157, and Shiga-like toxins. ?? Vibrio is cultured only upon special request. ??If Vibrio is suspected, please call the laboratory at [phone]. Interpretive data was last updated October 21, 2016. us Jose Roberto Hernandez MD LAB MICROBIOLOGY - GENERAL O RDERABLES Final Result Performing Organization Address [facility] Co de Phone Number [facility] [place] [address] * (ABNORMAL) eGFR (11/27/2023 9:48 PM CDT) [...] MD LAB BLOOD ORDERABLES Final R esult [facility] [place] [address] * Differential, auto (11/27/2023 9:48 PM CDT) Neutrophil abs 2.4 1.5 - 6.5 K/cumm Imm gran abs 0.0 0.0 - 0.1 K/cumm [facility] Lymphocyte abs 0.9 0.8 - 3.3 K/cumm [facility] Monocyte abs 0.5 0.2 - 0.8 K/cumm [facility] Eosinophil abs 0.0 0.0 - 0.5 K/cumm [facility] Basophil abs 0.0 0.0 - 0.1 K/cumm [facility] Neutrophil pct 63.0 % [facility] Comment: Interpretive Data Percent cell count reference ranges are not reported, since discordance with absolute values may lead to misinterpretation of CBC data. Current Interpretive Data was last revised on 2017. Imm gran pct 0.3 % [facility] Comment: Interpretive Data Percent cell count reference ranges are not reported, since discordance with absolute values may lead to misinterpretation of CBC data. Current Interpretive Data was last revised on 2017. Lymphocyte pct 22.4 % [facility] Comment: Interpretive Data Percent cell count reference ranges are not reported, since discordance with absolute values may lead to misinterpretation of CBC data. Current Interpretive Data was last revised on 2017. Monocyte pct 12.4 % [facility] Comment: Interpretive Data Percent cell count reference ranges are not reported, since discordance with absolute values may lead to misinterpretation of CBC data. Current Interpretive Data was last revised on 2017. Eosinophil pct 1.1 % [facility] Comment: Interpretive Data Percent cell count reference ranges are not reported, since discordance with absolute values may lead to misinterpretation of CBC data. Current Interpretive Data was last revised on 2017. Basophil pct 0.8 % [facility] Comment: Interpretive Data Percent cell count reference ranges are not reported, since discordance with absolute values may lead to misinterpretation of CBC data. Current Interpretive Data was last revised on 2017. Blood 11/27/2023 9:48 PM CDT 11/27/2023 10:36 PM CDT us Jose Roberto Hernandez MD LAB BLOOD ORDERABLES Final R bailey Performing Organization Address City/[facility]/ZIP Co de Phone Number [facility] Department [place] [address] * Magnesium (11/27/2023 9:48 PM CDT) Magnesium 1.9 1.4 - 2.5 mg/dL Blood 11/27/2023 9:48 PM CDT 11/27/2023 10:37 PM CDT us Jose Roberto Hernandez MD LAB BLOOD ORDERABLES Final R esult [facility] [place] [address] * (ABNORMAL) Comprehensive metabolic panel (11/27/2023 9:48 PM CDT) Sodium 137 135 - 145 mmol/L Potassium, pl 4.0 3.3 - 4.9 mmol/L [facility] Chloride 103 97 - 110 mmol/L [facility] CO2 23 22 - 32 mmol/L [facility] Anion gap 11 2 - 15 mmol/L [facility] BUN 20 6 - 25 mg/dL [facility] Creatinine 1.23(H) 0.60 - 1.10 mg/dL [facility] Glucose 93 70 - 199 mg/dL [facility] Comment: Interpretive Data Fasting glucose >/= [...] 2022. Calcium 9.3 8.5 - 10.3 mg/dL [facility] Bilirubin, total 0.9 0.1 - 1.2 mg/dL [facility] Protein, pl 6.2(L) 6.5 - 8.5 g/dL [facility] Albumin 3.5 3.5 - 5.0 g/dL [facility] Alk phos 143(H) 40 - 130 Units/L [facility] ALT 417(H) 7 - 45 Units/L [facility] AST 129(H) 10 - 45 Units/L [facility] Blood 11/27/2023 9:48 PM CDT 11/27/2023 10:37 PM CDT us Jose Roberto Hernandez MD LAB BLOOD ORDERABLES Final R esult [facility] [place] [address] * (ABNORMAL) CBC with auto differential (11/27/2023 9:48 PM CDT) [facility] WBC 3.8 3.8 - 9.9 K/cumm Hgb 8.7(L) 11.9 - 15.5 g/dL [facility] Hct 26.9(L) 35.6 - 45.5 % [facility] Plt 211 150 - 400 K/cumm [facility] MPV 12.3 9.1 - 12.3 fL [facility] RBC 3.04(L) 3.90 - 5.20 M/cumm [facility] MCV 88.5 81.3 - 96.4 fL [facility] MCH 28.6 27.1 - 33.3 pg [facility] MCHC 32.3 32.3 - 35.7 g/dL [facility] RDW CV 20.6(H) 11.1 - 14.9 % [facility] RDW SD 65.7(H) 35.7 - 48.1 fL [facility] NRBC abs 0.00 0.00 - 0.01 K/cumm [facility] Blood 11/27/2023 9:48 PM CDT 11/27/2023 10:36 PM CDT us Jose Roberto Hernandez MD LAB BLOOD ORDERABLES Final R esult [facility] [place] [address] * Infection Prevention Carlos auris PCR, surveillance Axilla/Groin (11/27/2023 4:06 PM CDT) [facility] Carlos auris DNA Not Detected Not Detected [facility] Comment: Interpretive Data Testing performed by [facility] using the [employer] Liaison MDX Carlos auris assay. ??This assay detects DNA from Carlos auris using Real-Time PCR. ??This assay is laboratory developed and is not cleared by the [place] Food and Drug Administration. ??The performance characteristics have been verified by the [facility]. Interpretive data was last reviewed on 10/08/2023 Axilla/Groin 11/27/2023 4:06 PM CDT 11/27/2023 4:20 PM CDT us Diony Lawson MD LAB MICROBIOLOGY - GENERAL OR DERABLES Final Result Performing Organization Address [facility] de Phone Number [facility] [place] [address] [facility] * Critical Result Callback Chemistry (11/27/2023 2:41 PM CDT) Date Notified [id number] Time Notified 1607 [facility] TestName Lipase [facility] Called/Read Back Aysha VICTOR [facility] Credentials RN [facility] Called By glenna VICTOR [facility] Blood 11/27/2023 2:41 PM CDT 11/27/2023 2:55 PM CDT us Duong Choi MD LAB BLOOD ORDERABLES Fin al Result Performing Organization Address [facility] de Phone Number [facility] [place] [address] * (ABNORMAL) eGFR (11/27/2023 2:41 PM CDT) [...] CDT Duong Choi MD LAB BLOOD ORDERABLES [place] Hospital al Result [facility] [place] [address] * (ABNORMAL) Comprehensive metabolic panel (11/27/2023 2:41 PM CDT) Sodium 136 135 - 145 mmol/L Potassium, pl 4.3 3.3 - 4.9 mmol/L [facility] Comment:Hemolyzed; Potassium value may be falsely elevated by as much as 0.6-1.0 mmol/L. Suggest redraw and reanalysis. Chloride 104 97 - 110 mmol/L [facility] CO2 22 22 - 32 mmol/L [facility] Anion gap 10 2 - 15 mmol/L [facility] BUN 21 6 - 25 mg/dL [facility] Creatinine 1.23(H) 0.60 - 1.10 mg/dL [facility] Glucose 125 70 - 199 mg/dL [facility] Comment: Interpretive Data Fasting glucose >/= [...] Calcium 9.3 8.5 - 10.3 mg/dL [facility] Bilirubin, total 0.9 0.1 - 1.2 [...] ORDERABLES Fin al Result Performing Organization Address City/[facility]/ZIP Co de Phone Number [facility] [place] [address] * (ABNORMAL) Lipase (11/27/2023 2:41 PM CDT) Lipase 1,154(C) 10 - 99 Units/L Blood 11/27/2023 2:41 PM CDT 11/27/2023 2:55 PM CDT Duong Choi MD LAB BLOOD ORDERABLES Fin al Result [facility] [place] [address] * ECG 12 lead (11/27/2023 11:56 AM CDT) [facility] Ventricular Rate EKG/Min 57 BPM [facility] Atrial Rate 57 BPM [facility] DE-Interval (MSEC) 150 ms [facility] QRS-Interval (MSEC) 110 ms [facility] QT-Interval (MSEC) 448 ms [facility] QTc 436 ms [facility] P [place] 84 degrees [facility] R [place] -21 degrees [facility] T [place] 131 degrees [facility] Diagnosis Sinus bradycardia Left ventricular hypertrophy with [...] GROSS M.D ([id number]) on 11/28/2023 2:45:50 PM [facility] 11/27/2023 11:5 6 AM CDT 11/28/2023 2:45 PM CDT us Duong Choi MD ECG ORDERABLES Final Re sult [facility] * (ABNORMAL) eGFR (11/27/2023 12:43 AM CDT) [facility] eGFR 47(L) >=60 mL/min/1. 73 m2 Comment: [...] MD LAB BLOOD ORDERABLES Final R esult [facility] [place] [address] * Differential, auto (11/27/2023 12:43 AM CDT) Neutrophil abs 3.6 1.5 - 6.5 K/cumm Imm gran abs 0.0 0.0 - 0.1 K/cumm [facility] Lymphocyte abs 0.9 0.8 - 3.3 K/cumm [facility] Monocyte abs 0.7 0.2 - 0.8 K/cumm [facility] Eosinophil abs 0.1 0.0 - 0.5 K/cumm [facility] Basophil abs 0.0 0.0 - 0.1 K/cumm [facility] Neutrophil pct 67.9 % [facility] Comment: Interpretive Data Percent cell count reference ranges are not reported, since discordance with absolute values may lead to misinterpretation of CBC data. Current Interpretive Data was last revised on 2017. Imm gran pct 0.6 % [facility] Comment: Interpretive Data Percent cell count reference ranges are not reported, since discordance with absolute values may lead to misinterpretation of CBC data. Current Interpretive Data was last revised on 2017. Lymphocyte pct 17.4 % [facility] Comment: Interpretive Data Percent cell count reference ranges are not reported, since discordance with absolute values may lead to misinterpretation of CBC data. Current Interpretive Data was last revised on 2017. Monocyte pct 12.6 % [facility] Comment: Interpretive Data Percent cell count reference ranges are not reported, since discordance with absolute values may lead to misinterpretation of CBC data. Current Interpretive Data was last revised on 2017. Eosinophil pct 1.1 % [facility] Comment: Interpretive Data Percent cell count reference ranges are not reported, since discordance with absolute values may lead to misinterpretation of CBC data. Current Interpretive Data was last revised on 2017. Basophil pct 0.4 % [facility] Comment: Interpretive Data Percent cell count reference ranges are not reported, since discordance with absolute values may lead to misinterpretation of CBC data. Current Interpretive Data was last revised on 2017. Blood 11/27/2023 12:4 3 AM CDT 11/27/2023 2:08 AM CDT Jose Roberto Hernandez MD LAB BLOOD ORDERABLES Final R esult Performing Organization Address City/[facility]/ZIP Co de Phone Number [facility] [place] [address] * Magnesium (11/27/2023 12:43 AM CDT) [facility] Magnesium 1.8 1.4 - 2.5 mg/dL Blood 11/27/2023 12:4 3 AM CDT 11/27/2023 2:07 AM CDT Jose Roberto Hernandez MD LAB BLOOD ORDERABLES Final R esult [facility] [place] [address] * (ABNORMAL) Comprehensive metabolic panel (11/27/2023 12:43 AM CDT) Pathologist [facility] Sodium 136 135 - 145 mmol/L Potassium, pl 3.9 3.3 - 4.9 mmol/L [facility] Chloride 101 97 - 110 mmol/L [facility] CO2 22 22 - 32 mmol/L [facility] Anion gap 13 2 - 15 mmol/L [facility] BUN 16 6 - 25 mg/dL [facility] Creatinine 1.19(H) 0.60 - 1.10 mg/dL [facility] Glucose 92 70 - 199 mg/dL [facility] Comment: Interpretive Data Fasting glucose >/= [...] 2022. Calcium 9.6 8.5 - 10.3 mg/dL [facility] Bilirubin, total 0.9 0.1 - 1.2 mg/dL [facility] Protein, pl 6.4(L) 6.5 - 8.5 g/dL [facility] Albumin 3.7 3.5 - 5.0 g/dL [facility] Alk phos 155(H) 40 - 130 Units/L [facility] ALT 536(H) 7 - 45 Units/L [facility] AST 184(H) 10 - 45 Units/L [facility] Blood 11/27/2023 12:4 3 AM CDT 11/27/2023 2:07 AM CDT us Jose Roberto Hernandez MD LAB BLOOD ORDERABLES Final R esult [facility] [place] [address] * (ABNORMAL) CBC with auto differential (11/27/2023 12:43 AM CDT) WBC 5.2 3.8 - 9.9 K/cumm Hgb 9.3(L) 11.9 - 15.5 g/dL [facility] Hct 28.4(L) 35.6 - 45.5 % [facility] Plt 220 150 - 400 K/cumm [facility] MPV 12.1 9.1 - 12.3 fL [facility] RBC 3.26(L) 3.90 - 5.20 M/cumm [facility] MCV 87.1 81.3 - 96.4 fL [facility] MCH 28.5 27.1 - 33.3 pg [facility] MCHC 32.7 32.3 - 35.7 g/dL [facility] RDW CV 20.2(H) 11.1 - 14.9 % [facility] RDW SD 63.6(H) 35.7 - 48.1 fL [facility] NRBC abs 0.00 0.00 - 0.01 K/cumm [facility] Blood 11/27/2023 12:4 3 AM CDT 11/27/2023 2:08 AM CDT us Jose Roberto Hernandez MD LAB BLOOD ORDERABLES Final R esult [facility] [place] [address] * FL ERCP Biliary Duct (11/26/2023 5:09 PM CDT) Narrative RAD_[facility] - 11/26/2023 5:09 PM CDT The images from this study are not interpreted by Radiology. ??Please refer to the physician's procedure / OR operative note. us Wilfred Howard MD IMG FLUOROSCOPY PROCEDURES Final Result [facility] * Upper EUS (11/26/2023 4:02 PM CDT) Anatomical Region Laterality Modality Other Narrative Procedure Note Heydi Fenton MD - 11/26/2023 4:02 PM CDT [facility] Patient Name: Tiera Lobato Procedure Date: 11/26/2023 4:02 PM Date of : 1945 Admit Type: Inpatient Age: 78 Gender: Female Attending MD: Heydi Fenton M.D. Room: [facility] END[facility]COPY [facility]OM 2 Note Status: Finalized Procedure: [...] consent was obtained.The Olympuscurved linear array therapeutic [id number] was introduced through the mouth, and advanced [...] Female Attending MD: Heydi Fenton M.D. Room: [facility] END[facility]COPY [facility]OM 2 Note Status: Finalized Procedure: ERCP Indications: Bile duct stone seen on EUS and on CTAP, normal bilirubin Referring MD: Duong Choi, Cristian Ling M.D. Providers: Heydi Fenton M.D., Marco Antonio Gusman M.D. Medicines: Monitored Anesthesia Care, Indomethacin 100 mg DE Complications: No immediate complications. Estimated Blood Loss: [...] were discussed and informed consentwas obtained. The [id number] Duodenoscope wasintroduced through the mouth, and used to inject contrast into and used to inject contrast into the bile duct. The ERCP was accomplished without difficulty. Thepatient tolerated the procedure well. Findings: A district scout executive film of the abdomen was obtained. Surgical [...] the days following this procedure please call [phone]. After hours and evenings please call [phone] speak to the GI fellow visual communications instructor. Please tell thefellow that Dr. Fentondid your [...] surveillance Axilla/Groin (11/25/2023 9:44 PM CDT) Pathologist [facility] Carlos auris DNA Not Detected Not Detected [facility] Comment: Interpretive Data Testing performed by [facility] using the [employer]ison MDX Carlos auris assay. ??This assay detects DNA from Carlos auris using Real-Time PCR. ??This assay is laboratory developed and is not cleared by the [facility] Food and Drug Administration. ??The performance characteristics have been verified by the [facility]. Interpretive data was last reviewed on 10/08/2023 Axilla/Groin 11/25/2023 9:44 PM CDT 11/25/2023 10:29 PM CDT Diony Lawson MD LAB MICROBIOLOGY - GENERAL OR DERABLES Final Result Performing Organization Address City/[facility] Co de Phone Number [facility] [place] [address] [facility] * (ABNORMAL) Ferritin (11/25/2023 9:26 PM CDT) [facility] Ferritin 1,715(H) 13 - 150 ng/mL Blood 11/25/2023 9:26 PM CDT 11/25/2023 9:39 PM CDT Jose Roberto Hernandez MD LAB BLOOD ORDERABLES Final R esult [facility] [place] [address] * Iron profile w/ IBC (11/25/2023 9:26 PM CDT) Pathologist [facility] Iron 72 35 - 145 mcg/dL TIBC See Comment 250 - 400 mcg/dL [facility] Comment:Unable to calculate Transferrin saturation See Comment 20 - 50 % [facility] Comment:Unable to calculate Blood 11/25/2023 9:26 PM CDT 11/25/2023 9:39 PM CDT Jose Roberto Hernandez MD LAB BLOOD ORDERABLES Final R [facility] Performing Organization Address [facility] de Phone Number [facility] [place] [address] * Protime-INR (11/25/2023 9:26 PM CDT) [facility] PT 11.8 10.3 - 13.7 sec INR 1.04 0.90 - 1.20 [facility] Comment: Interpretive data Oral anticoagulant therapeutic ranges: Venous thromboembolism prophylaxis or treatment: 2.0-3.0 CARDIOLOGY Standard range: 2.0-3.0 High-intensity range: 2.5-3.5 Refer to indication-specific guidelines for appropriate target ranges for prosthetic heart valve replacement. Current interpretive data was last revised on 2019. Blood 11/25/2023 9:26 PM CDT 11/25/2023 9:44 PM CDT Jose Roberto Hernandez MD LAB BLOOD ORDERABLES Final R [facility] Performing Organization Address [facility] de Phone Number [facility] [place] [address] * (ABNORMAL) eGFR (11/25/2023 7:09 PM CDT) [facility] eGFR 46(L) >=60 mL/min/1. 73 m2 Comment: [...] MD LAB BLOOD ORDERABLES Fin al Result [facility] [place] [address] * Differential, auto (11/25/2023 7:09 PM CDT) Pathologist [facility] Neutrophil abs 2.0 1.5 - 6.5 K/cumm Imm gran abs 0.0 0.0 - 0.1 K/cumm [facility] Lymphocyte abs 0.9 0.8 - 3.3 K/cumm [facility] Monocyte abs 0.5 0.2 - 0.8 K/cumm [facility] Eosinophil abs 0.1 0.0 - 0.5 K/cumm [facility] Basophil abs 0.0 0.0 - 0.1 K/cumm [facility] Neutrophil pct 58.6 % [facility] Comment: Interpretive Data Percent cell count reference ranges are not reported, since discordance with absolute values may lead to misinterpretation of CBC data. Current Interpretive Data was last revised on 2017. Imm gran pct 0.0 % [facility] Comment: Interpretive Data Percent cell count reference ranges are not reported, since discordance with absolute values may lead to misinterpretation of CBC data. Current Interpretive Data was last revised on 2017. Lymphocyte pct 25.4 % [facility] Comment: Interpretive Data Percent cell count reference ranges are not reported, since discordance with absolute values may lead to misinterpretation of CBC data. Current Interpretive Data was last revised on 2017. Monocyte pct 13.4 % [facility] Comment: Interpretive Data Percent cell count reference ranges are not reported, since discordance with absolute values may lead to misinterpretation of CBC data. Current Interpretive Data was last revised on 2017. Eosinophil pct 2.3 % [facility] Comment: Interpretive Data Percent cell count reference ranges are not reported, since discordance with absolute values may lead to misinterpretation of CBC data. Current Interpretive Data was last revised on 2017. Basophil pct 0.3 % [facility] Comment: Interpretive Data Percent cell count reference ranges are not reported, since discordance with absolute values may lead to misinterpretation of CBC data. Current Interpretive Data was last revised on 2017. Blood 11/25/2023 7:09 PM CDT 11/25/2023 7:21 PM CDT us Duong Choi MD LAB BLOOD ORDERABLES Fin al Result [facility] [place] [address] * Type and screen (11/25/2023 7:09 PM CDT) ABO Rh B Negative Cheri, indirect Negative [facility] Blood 11/25/2023 7:09 PM CDT 11/25/2023 7:35 PM CDT Narrative [facility] - 11/25/2023 8:27 PM CDT Has the patient had Daratumumab or Isatuximab in the past 6 months?->Unknown Duong Choi MD LAB BLOOD BANK TEST MYRNA FERNANDEZ Final Result Performing Organization Address [facility] de Phone Number [facility] [place] [address] * (ABNORMAL) aPTT (11/25/2023 7:09 PM CDT) [...] ORDERABLES Fin al Result Performing Organization Address [facility] de Phone Number [facility] [place] [address] * Protime-INR (11/25/2023 7:09 PM CDT) PT 13.1 10.3 - 13.7 sec INR 1.15 0.90 - 1.20 [facility] Comment: Interpretive data Oral anticoagulant therapeutic ranges: Venous thromboembolism prophylaxis or treatment: 2.0-3.0 CARDIOLOGY Standard range: 2.0-3.0 High-intensity range: 2.5-3.5 Refer to indication-specific guidelines for appropriate target ranges for prosthetic heart valve replacement. Current interpretive data was last revised on 2019. Blood 11/25/2023 7:09 PM CDT 11/25/2023 7:30 PM CDT Duong Choi MD LAB BLOOD ORDERABLES Fin al Result Performing Organization Address [facility] de Phone Number [facility] [place] [address] * Phosphorus (11/25/2023 7:09 PM CDT) [facility] Phosphorus, pl 3.0 2.3 - 4.5 mg/dL Blood 11/25/2023 7:09 PM CDT 11/25/2023 7:22 PM CDT Duong Choi MD LAB BLOOD ORDERABLES Fin al Result Performing Organization Address City/[facility]/[place]IP [place] [address] * Magnesium (11/25/2023 7:09 PM CDT) [facility] Magnesium 1.8 1.4 - 2.5 mg/dL Blood 11/25/2023 7:09 PM CDT 11/25/2023 7:22 PM CDT Duong Choi MD LAB BLOOD ORDERABLES Fin al Result Performing Organization Address [facility] de Phone Number [facility] [place] [address] * (ABNORMAL) CBC with auto differential (11/25/2023 7:09 PM CDT) [facility] WBC 3.4(L) 3.8 - 9.9 K/cumm Hgb 8.5(L) 11.9 - 15.5 g/dL [facility] Hct 26.7(L) 35.6 - 45.5 % [facility] Plt 213 150 - 400 K/cumm [facility] MPV 11.6 9.1 - 12.3 fL [facility] RBC 3.02(L) 3.90 - 5.20 M/cumm [facility] MCV 88.4 81.3 - 96.4 fL [facility] MCH 28.1 27.1 - 33.3 pg [facility] MCHC 31.8(L) 32.3 - 35.7 g/dL [facility] RDW CV 20.9(H) 11.1 - 14.9 % [facility] RDW SD 67.1(H) 35.7 - 48.1 fL [facility] NRBC abs 0.00 0.00 - 0.01 K/cumm [facility] Blood 11/25/2023 7:09 PM CDT 11/25/2023 7:21 PM CDT us Duong Choi MD LAB BLOOD ORDERABLES Fin al Result [facility] [place] [address] * (ABNORMAL) Comprehensive metabolic panel (11/25/2023 7:09 PM CDT) Sodium 135 135 - 145 mmol/L Potassium, pl 3.9 3.3 - 4.9 mmol/L [facility] Chloride 103 97 - 110 mmol/L [facility] CO2 23 22 - 32 mmol/L [facility] Anion gap 9 2 - 15 mmol/L [facility] BUN 13 6 - 25 mg/dL [facility] Creatinine 1.22(H) 0.60 - 1.10 mg/dL [facility] Glucose 99 70 - 199 mg/dL [facility] Comment: Interpretive Data Fasting glucose >/= [...] 2022. Calcium 9.8 8.5 - 10.3 mg/dL [facility] Bilirubin, total 0.8 0.1 - 1.2 mg/dL [facility] Protein, pl 6.4(L) 6.5 - 8.5 g/dL [facility] Albumin 3.5 3.5 - 5.0 g/dL [facility] Alk phos 152(H) 40 - 130 Units/L [facility] ALT 683(H) 7 - 45 Units/L [facility] AST 257(H) 10 - 45 Units/L [facility] Blood 11/25/2023 7:09 PM CDT 11/25/2023 7:22 PM CDT us Duong Choi MD LAB BLOOD ORDERABLES Fin al Result [facility] [place] [address] * XR Tibia Fibula Right 2 Views [...] result Negative, free toxin Negative, free toxin [facility] C. diff interp Negative for toxigenic Clostridioides (Clostridium) difficile. Analysis was performed using a glutamate dehydrogenase antigen detection assay combined with a C. difficile toxin detection assay. [facility] Stool 11/25/2023 7:18 AM CDT 11/25/2023 8:40 AM CDT Kassidy Cunningham MD LAB MICROBIOLOGY - G ENERAL ORDERABLES Final Result [facility] [place] [address] * (ABNORMAL) eGFR (11/25/2023 6:47 AM CDT) [...] MD LAB BLOOD ORDERABLES F inal Result [facility] [place] [address] * (ABNORMAL) Comprehensive metabolic panel (11/25/2023 6:47 AM CDT) Sodium 135 135 - 145 mmol/L Potassium, pl 4.0 3.3 - 4.9 mmol/L [facility] Chloride 102 97 - 110 mmol/L [facility] CO2 20(L) 22 - 32 mmol/L [facility] Anion gap 13 2 - 15 mmol/L [facility] BUN 11 6 - 25 mg/dL [facility] Creatinine 1.18(H) 0.60 - 1.10 mg/dL [facility] Glucose 84 70 - 199 mg/dL [facility] Comment: Interpretive Data Fasting glucose >/= [...] 2022. Calcium 9.8 8.5 - 10.3 mg/dL [facility] Bilirubin, total 0.9 0.1 - 1.2 mg/dL [facility] Protein, pl 6.6 6.5 - 8.5 g/dL [facility] Albumin 3.6 3.5 - 5.0 g/dL [facility] Alk phos 166(H) 40 - 130 Units/L [facility] ALT 796(H) 7 - 45 Units/L [facility] AST 364(H) 10 - 45 Units/L [facility] Blood 11/25/2023 6:47 AM CDT 11/25/2023 6:58 AM CDT Seamus Pimentel Jr., MD LAB BLOOD ORDERABLES F inal Result Performing Organization Address [facility] Co de Phone Number [facility] [place] [address] * (ABNORMAL) CBC without differential (11/25/2023 6:47 AM CDT) [facility] WBC 3.8 3.8 - 9.9 K/cumm Hgb 8.4(L) 11.9 - 15.5 g/dL [facility] Hct 26.2(L) 35.6 - 45.5 % [facility] Plt 198 150 - 400 K/cumm [facility] MPV 10.9 9.1 - 12.3 fL [facility] RBC 3.00(L) 3.90 - 5.20 M/cumm [facility] MCV 87.3 81.3 - 96.4 fL [facility] MCH 28.0 27.1 - 33.3 pg [facility] MCHC 32.1(L) 32.3 - 35.7 g/dL [facility] RDW CV 21.0(H) 11.1 - 14.9 % [facility] RDW SD 65.5(H) 35.7 - 48.1 fL [facility] NRBC abs 0.00 0.00 - 0.01 K/cumm [facility] Blood 11/25/2023 6:47 AM CDT 11/25/2023 6:58 AM CDT Seamus Pimentel Jr., MD LAB BLOOD ORDERABLES F inal Result Performing Organization Address [facility] Co de Phone Number [facility] [place] [address] * (ABNORMAL) Urinalysis, microscopic only (11/24/2023 3:33 PM CDT) WBC, ur 0-5 0 - 5 /HPF RBC, ur 0-2 0 - 2 /HPF [facility] Epithelial cells, squamous, ur 1-5 0 - 5 /HPF [facility] Epithelial cells, transitional, ur 1-5 0 - 0 /HPF [facility] Bacteria, ur 1+(A) [facility] Culture Reflex Comment Reflex conditions for urine culture (WBC >10) not met. [facility] Urine 11/24/2023 3:33 PM CDT 11/24/2023 4:06 PM CDT us Kassidy Cunningham MD LAB URINE ORDERABLES Final Result [facility] [place] [address] * (ABNORMAL) Urinalysis reflex to microscopic and culture Urine (11/24/2023 3:33 PM CDT) Color, ur Straw Yellow Clarity, ur Clear Clear [facility] Specific gravity, ur 1.015 1.003 - 1.030 [facility] pH, urine 6.5 [facility] Comment: Interpretive Data ? Urine pH is affected by diet, medications, systemic acid-base disturbances, and renal tubular function. ??pH may affect urinary stone formation. ??For example, urine pH below 6.0 may help reduce the tendency for calcium phosphate stones and pH greater than 6.0 may reduce the tendency for uric acid stone formation. Source: [facility] [place] Current Interpretive Data was last revised on 2017 Protein, ur ql Negative Negative [facility] Glucose, ur ql Negative Negative [facility] Ketones, ur Negative Negative [facility] Bilirubin, ur Negative Negative [facility] Blood, ur Negative Negative [facility] Urobilinogen, ur <2.0 <2.0 mg/dL [facility] Nitrite, ur Negative Negative [facility] Leukocyte esterase, ur 2+(A) Negative [facility] UA reflex comment Reflex to microscopic UA will be performed. [facility] Urine 11/24/2023 3:33 PM CDT 11/24/2023 4:06 PM CDT us Kassidy Cunningham MD LAB MICROBIOLOGY - G ENERAL ORDERABLES Final Result [facility] [place] [address] * CT Abdomen Pelvis W Contrast (11/24/2023 [...] by: Benjamín Villeda M.D. Kassidy Cunningham MD [facility] CT PROCEDURES Fi nal Result * Hepatitis panel, acute Blood (11/24/2023 12:01 PM CDT) Hep A IgM Nonreactive Nonreactive Hep B core IgM Nonreactive Nonreactive [facility] Hep C Ab Nonreactive Nonreactive [facility] Comment:Antibodies to HCV no t detected. Does NOT exclude the possibility of recent exposure to HCV. Current interpretive data was last revised on 22 HepBsAg Nonreactive Nonreactive [facility] Blood 11/24/2023 12:0 1 PM CDT 11/24/2023 12:20 PM CDT Kassidy Cunningham MD LAB MICROBIOLOGY - G ENERAL ORDERABLES Final Result Performing Organization Address [facility] de Phone Number [facility] Department [place] [address] * Troponin I high-sensitivity 2-hour (11/24/2023 12:01 PM CDT) Trop I hs 16 <=17 ng/L Comment: Interpretive Data For further hscTnI resources including the diagnostic algorithm and an aid in interpretation, copy and paste this link: https://bjhlab.testcatalog.org/show/hsTrop-1 Current Interpretive Data last revised 2019. Trop I hs delta 1 ng/L [facility] Trop I hs interp Insignificant [facility] Blood 11/24/2023 12:0 1 PM CDT 11/24/2023 12:20 PM CDT Elisha Jose MD LAB BLOOD ORDERABLES Final Result Performing Organization Address [facility] de Phone Number [facility] [place] [address] * POCUS Soft Tissue of the Upper [...] Jose MD LAB BLOOD ORDERABLES Final Result [facility] One [facility] Department [place] [address] * (ABNORMAL) Differential, auto (11/24/2023 9:49 AM CDT) [facility] Neutrophil abs 1.9 1.5 - 6.5 K/cumm Imm gran abs 0.0 0.0 - 0.1 K/cumm [facility] Lymphocyte abs 0.5(L) 0.8 - 3.3 K/cumm [facility] Monocyte abs 0.5 0.2 - 0.8 K/cumm [facility] Eosinophil abs 0.3 0.0 - 0.5 K/cumm [facility] Basophil abs 0.0 0.0 - 0.1 K/cumm [facility] Neutrophil pct 58.6 % [facility] Comment: Interpretive Data Percent cell count reference ranges are not reported, since discordance with absolute values may lead to misinterpretation of CBC data. Current Interpretive Data was last revised on 2017. Imm gran pct 0.3 % [facility] Comment: Interpretive Data Percent cell count reference ranges are not reported, since discordance with absolute values may lead to misinterpretation of CBC data. Current Interpretive Data was last revised on 2017. Lymphocyte pct 16.4 % [facility] Comment: Interpretive Data Percent cell count reference ranges are not reported, since discordance with absolute values may lead to misinterpretation of CBC data. Current Interpretive Data was last revised on 2017. Monocyte pct 16.7 % [facility] Comment: Interpretive Data Percent cell count reference ranges are not reported, since discordance with absolute values may lead to misinterpretation of CBC data. Current Interpretive Data was last revised on 2017. Eosinophil pct 7.7 % [facility] Comment: Interpretive Data Percent cell count reference ranges are not reported, since discordance with absolute values may lead to misinterpretation of CBC data. Current Interpretive Data was last revised on 2017. Basophil pct 0.3 % [facility] Comment: Interpretive Data Percent cell count reference ranges are not reported, since discordance with absolute values may lead to misinterpretation of CBC data. Current Interpretive Data was last revised on 2017. Blood 11/24/2023 9:49 AM CDT 11/24/2023 10:02 AM CDT us Elisha Jose MD LAB BLOOD ORDERABLES Final Result [facility] [place] [address] * Troponin I high-sensitivity series (baseline, 2hr, 4hr, 6hr) (11/24/2023 9:49 AM CDT) [facility] Trop I hs 15 <=17 ng/L Comment: Interpretive Data For further [facility] resources including the diagnostic algorithm and an aid in interpretation, copy and paste this link: https://bjhlab.testcatalog.org/show/hsTrop-[email or web address] Current Interpretive Data last revised 2019. Blood 11/24/2023 9:49 AM CDT 11/24/2023 10:01 AM CDT Elisha Jose MD LAB BLOOD ORDERABLES Final Result [facility] [place] [address] * Lipase (11/24/2023 9:49 AM CDT) [facility] Lipase 31 10 - 99 Units/L Blood (Blood, Venous) 11/24/2023 9:49 AM CDT 11/24/2023 10:02 AM CDT Elisha Jose MD LAB BLOOD ORDERABLES Final Result Performing Organization Address City/[facility]/ZIP Co de Phone Number [facility] [place] [address] * (ABNORMAL) Comprehensive metabolic panel (11/24/2023 9:49 AM CDT) [facility] Sodium 135 135 - 145 mmol/L Potassium, pl 4.0 3.3 - 4.9 mmol/L [facility] Chloride 103 97 - 110 mmol/L [facility] CO2 23 22 - 32 mmol/L [facility] Anion gap 9 2 - 15 mmol/L [facility] BUN 12 6 - 25 mg/dL [facility] Creatinine 1.29(H) 0.60 - 1.10 mg/dL [facility] Glucose 106 70 - 199 mg/dL [facility] Comment: Interpretive Data Fasting glucose >/= [...] 2022. Calcium 9.7 8.5 - 10.3 mg/dL [facility] Bilirubin, total 0.9 0.1 - 1.2 mg/dL [facility] Protein, pl 6.9 6.5 - 8.5 g/dL [facility] Albumin 4.0 3.5 - 5.0 g/dL [facility] Alk phos 185(H) 40 - 130 Units/L [facility] ALT 1,087(H) 7 - 45 Units/L [facility] AST 673(H) 10 - 45 Units/L [facility] Blood 11/24/2023 9:49 AM CDT 11/24/2023 10:02 AM CDT Elisha Jose MD LAB BLOOD ORDERABLES Final Result [facility] [place] [address] * (ABNORMAL) CBC with auto differential (11/24/2023 9:49 AM CDT) Pathologist [facility] WBC 3.2(L) 3.8 - 9.9 K/cumm Hgb 8.8(L) 11.9 - 15.5 g/dL [facility] Hct 27.6(L) 35.6 - 45.5 % [facility] Plt 191 150 - 400 K/cumm [facility] MPV 11.5 9.1 - 12.3 fL [facility] RBC 3.14(L) 3.90 - 5.20 M/cumm [facility] MCV 87.9 81.3 - 96.4 fL [facility] MCH 28.0 27.1 - 33.3 pg [facility] MCHC 31.9(L) 32.3 - 35.7 g/dL [facility] RDW CV 20.8(H) 11.1 - 14.9 % [facility] RDW SD 65.2(H) 35.7 - 48.1 fL [facility] NRBC abs 0.00 0.00 - 0.01 K/cumm [facility] Blood (Blood, Venous) 11/24/2023 9:49 AM CDT 11/24/2023 10:02 AM CDT us Elisha Jose MD LAB BLOOD ORDERABLES Final Result Performing Organization Address City/State/[facility] Co de Phone Number [facility] [place] [address] documented in this encounter Visit Diagnoses Diagnosis [...] 1826 (Given - Provider: Yvonne Corrigan RN) sqjiigkxnlkfl-xvwutpy-lif feine (EXCEDRIN MIGRAINE) 250-250-65 mg per tablet [...] acetaminophen (TYLENOL) tablet 650 mg 2 12/01/2023 jbganxwkhhpga-xubegey-wyxbbh ne (EXCEDRIN MIGRAINE) 250-250-65 mg per tablet [...] documented as of this encounter Care Teams Product Communications Manager Relationship Specialty Start Date End Date Cristian Ling MD [address] [place] [address] PCP - General 10/16/16 documented as of this encounter
--- OUTSIDE RECORDS SUMMARY | 2024-06-12 04:29 | XMS_ITS | Encounter Summary ---
Author Organization [facility] Address [address] [place] [address] Phone Care Team Providers Care Display Trimmer Name Role Phone Cristian Ling MD Primary Care Prov ider Belinda Quigley COMMUNICATIONS PROGRAMMER Unavailable [phone] Reason for Visit * Reason Onset Date Comments GI Preprocedure 12/04/2023 Encounter Details Date Type Department Care Team (Late st Contact Info) Description 12/04/2023 Telephone [facility] Gastroenterology [address] 12th [place] [address] [place] [address] Priscilla Hamilton RN GI Preprocedure Social History Tobacco Use Types Packs/Day Years Used Date Smoking Tobacco: Never Passive Smoke Exposure: Current Smokeless Tobacco: Never [facility] Utilities Answer Date Recorded In the past 12 months has [employer], gas, oil, or water [employer] threatened to shut off services in your [...] How often do you attend evangelical or samaritan serv ices? 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 N/A [] Yes - Letter Sent to Ordering Physician/Acetylene Plant Operator Date sent: Hold instructions: GLP Weight Loss Medications N/A Educated Patient on the need to hold Medication, and to contact their ordering MD or Acetylene Plant Operator about bridging medication for procedure. Y/N: No/NA None [] Yes - Letter Sent to Ordering Physician/Acetylene Plant Operator Hold older Instructions: BLOOD THINNERS/ANTICOAG/ANTIPLATELET (BESIDES ASA) Medication: Apixaban (Eliquis) Physician contacted for hold order/date sent: Dr. Stafford, 12.04.2023 Hold order Method sent: [employer] Fax Date hold received: 12.08.2023 Hold instructions: hold for 3 days- scanned in media CONTINUE ASPIRIN INFORMATION REQUESTED []Imaging: []Medical Progress Note/H&P []Medication list []Other: PATIENT OPTIMIZATION []Physician reviewing escalation: []CPAP: Date scheduled: Outcome : [] Location limitations: Scheduling Scheduling location limitations: Hot Walker needed [x] NA Language: POA [x] NA Name: Required extended education:no SPECIAL PROCEDURE INSTRUCTIONS Scheduling Notes Procedure information Date of procedure: 01.07.2024 Time of procedure: 1000 Arrival time: 0900 Location: [facility] Proceduralist: Dr. 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 Request sent to Dr. Stafford via [employer] fax at [phone] . * Telephone Encounter - Priscilla Haimlton RN - 12/04/2023 1:05 PM CDT PROCEDURE [...] screening questions: BMI/Weight: NA CARDIOVASCULAR: Heart attack (VA)/stents in the past year (<12 mo)- Obtain [...] None ENDOCRINE: None PRIOR PROCEDURE ISSUES: None CERAMIC MOLD DESIGNER/: NA IMPLANTS.: None PSYCH/Behavioral Hx: N/A SC [...] and to contact their ordering MD or Acetylene Plant Operator about bridging medication for procedure. N/A [] Yes - Letter Sent to Ordering Physician/Acetylene Plant Operator Date sent: Hold instructions: GLP Weight Loss Medications N/A Educated Patient on the need to hold Medication, and to contact their ordering MD or Acetylene Plant Operator about bridging medication for procedure. Y/N: No/NA None [] Yes - Letter Sent to Ordering Physician/Acetylene Plant Operator Hold older Instructions: BLOOD THINNERS/ANTICOAG/ANTIPLATELET (BESIDES ASA) [...] [] Location limitations: Scheduling Scheduling location limitations: Hot Walker needed [x] NA Language: POA [x] NA Name: Required extended education:no SPECIAL PROCEDURE INSTRUCTIONS Scheduling Notes Procedure information Date of procedure: 01.07.2024 Time of procedure: 1100 Arrival time: 1000 Location: [facility] Proceduralist: Dr. 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
--- OUTSIDE RECORDS SUMMARY | 2024-06-12 04:29 | XMS_ITS | Encounter Summary ---
Author Organization [facility] Address [address] [place] [address] Phone Care Team Providers Care Chinese Instructor Name Role Phone Cristian Ling MD Primary Care Prov ider Reason for Visit * Episode Based Medications (Routine) - Authorized Specialty Diagnoses / Procedures Referred By Contac t Referred To Contact Diagnoses Iron deficiency anemia, unspecified iron deficiency anemia type Saif Ur Katja Linares MD [address] [place] [address] Phone: tel: fax: [facility] [place] [id number] 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 female [...] First Orde red Date ONCBCN NURSING COMMUNICATION [id number] 0 10/30/2023 VITAL SIGNS 1 10/30/2023 Appointment Requests Count Last Ordered Date Fi rst Ordered Date ONCBCN INFUSION APPT REQUEST 1 10/30/2023 documented in this encounter Care Teams Chinese Instructor Relationship Specialty Start Date End Date Cristian Ling MD [address] [place] [address] PCP - General 10/16/16 documented as of this encounter
--- OUTSIDE RECORDS SUMMARY | 2024-06-12 04:29 | XMS_ITS | Encounter Summary ---
Author Organization [facility] Healthcare Address [address] [place] [address] Care Team Providers Care Underwater Trapper Name Role Phone Cristian Ling MD Primary Care Prov ider Belinda Quigley PATTERN CARRIER Unavailable [phone] Encounter Details Date Type Department Care Team (Late st Contact Info) Description 12/04/2023 SHOP/CHAP Initial Eligibility Review [facility] OP CASE MANAGEMENT [address] [place] [id number] Belinda Quigley LCSW [address] [facility] ([facility] Mailstop [phone] [place] [address] Social History Tobacco Use Types Packs/Day Years Used Date Smoking Tobacco: Never Passive Smoke Exposure: Current Smokeless Tobacco: Never [facility] Utilities Answer Date Recorded In the past 12 months has [employer], gas, oil, or water [employer] threatened to shut off services in your [...] week 12/04/2023 How often do you attend worship or sikhism serv ices? Never 12/04/2023 Do you belong to any clubs o r organizations such as worship groups, unions, fraternal or athletic groups, or [...] staff should administer the PHQ-9) 0 09/28/2020 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 Gender Identity Female 02/07/2021 4:33 PM CDT Sexual Orientation Straight 02/07/2021 4: 33 PM CDT documented as of this encounter Plan of Treatment Not on file documented as of this encounter Visit Diagnoses Not on filedocumented in this encounter Care Teams Underwater Trapper Relationship Specialty Start Date End Date Cristian Ling MD [address] [place] [address] PCP - General 10/16/16 Belinda Quigley, SERG [address] [facility] ([facility] Mailstop [phone] [place], [place] [id number] 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
--- OUTSIDE RECORDS SUMMARY | 2024-06-12 04:29 | XMS_ITS | Encounter Summary ---
Author Organization [facility] Healthcare Address [address] [place] [address] Care Team Providers Care Dishwasher Preparer Name Role Phone Cristian Ling MD Primary Care Prov ider Reason for Visit * Reason Comments Vomiting Diarrhea * Auth/Cert (Routine) Specialty Diagnoses / Procedures Referred By Contdeepali t Referred To Contact Diagnoses Acute hepatitis Procedures NA Referral ID Status Reason Start Date Expiration Date Visits Re quested Visits Authorized [id number] 1 1 Encounter Details Date Type Department Care Team (Late st Contact Info) Description 11/24/2023 9:25 AM CDT - 12/03/2023 3:31 PM CDT Hospital Encounter [address] [phone] Elisha Jose MD [address] [place] [address] Jose Roberto Hernandez MD [address] [place] [address] Benjamín Fernandez MD [address] [place] [address] Baylee Pepper MD [address] [place] [address] Nallely Johns MD [address] [place] [address] Duong Choi MD [address] [place] [address] Ezequiel Jose MD [address] [place] [address] Oscar De La Torre MD [address] [place] [address] Jorge Maldonado MD [address] [place] [address] Hepatitis (Primary Dx); Cellulitis of right lower extremity; Choledocholithiasis Discharge Disposition: Discharge to home or self care Social History Tobacco Use Types Packs/Day Years Used Date Smoking Tobacco: Never Passive Smoke Exposure: Current Smokeless Tobacco: Never [facility] Utilities Answer Date Recorded In the past 12 months has [facility] [employer], gas, oil, or water [employer]. threatened to shut off services in your [...] week 12/04/2023 How often do you attend presybeterian or sabianism serv ices? Never 12/04/2023 Do you belong to any clubs o r organizations such as presybeterian groups, unions, fraternal or athletic groups, or [...] staff should administer the PHQ-9) 0 09/28/2020 [facility] - Occupational [...] any time in the past 12 m [facility], were you homeless or living in a senior care (including now)? No 12/04/2023 Personal Safety Answer Date Recorded Getting School Help Needed Not on file 08/30 Comments No Sex and Gender Information Value Date Recorded Sex Assigned at Not on file Legal Sex Female 7:12 AM FORGING DIE SINKER Gender Identity Female 02/07/2021 4:33 PM CDT [...] Care Physician at Discharge: Cristian Ling MD [phone] Admission Date: 11/24/2023 Discharge Date: 12/03/2023 Admission Location: [facility] Problems/Diagnoses: Principal Problem: Acute hepatitis Active Problems: [...] on AC, ApicalVariant HCM, CAD (Dr. Stafford; [place] 08[place] s/p CABG (LAWSON to LAD, SVG [...] is able tolerate low fat diet.Repeat E COMMODITY MANAGEMENT SPECIALIST in 6-8 weeks for stent removal, will [...] moderate compression #Afib on Eliquis [facility]. History of afib with difficulty with rate control requiring cardioversion. Home regimen: amiodarone 200mg daily, metoprolol XL 25mg daily, eliquis 5mg BID. Continue home amiodarone 200mg daily and home metoprolol XL 25mg daily.Restart eliquis 5mg BID. #Chronic Normocytic Anemia [facility]. Anemia thought to be due [...] Medicine Relationship: PCP - General [place] [address] Next Steps: Follow up documented in this [...] Care Everywhere. * Open Cholecystectomy (Discharge Care) (Bhutanese) * Cellulitis (Discharge Care) (Bhutanese) * Pancreatitis (AfterCare(R) Instructions(ER/ED)) (Bhutanese) documented in this encounter Medications at Time [...] Age: 78 y.o. female Admission: 11/24/2023 Bed: [id number] LOS: 9 days Subjective Chief complaint: lft elevation Interval History - No acute concerns - Tolerating diet well - Denies pain or nausea today - Anxious about discharge, but reassured prn med use. DC to [facility] today Objective Scheduled Meds PRN Meds Infusions [...] last 24 hours. For additional labs/trends, see [facility].) I have reviewed the laboratory results. Imaging Review No results found. I have independently reviewed and interpreted pateint's chart in [facility]. Assessment/Plan Pancreatitis Assessment & Plan Post [...] anemia, unspecified Assessment & Plan [facility]. Anemia thought to be due to iron deficiency as well as CKD stage IIIb. Received iron infusion in 09/2023. On admission hgb 8.4 (bl 7-9). Iron 72, ferritin 1715. - Stable H/H, last 8.5 A-fib (CMS/HCC) (HCC) Assessment & Plan Follows with [facility] Cardiology. History of afib with difficulty with [...] Living Facility, Home Health PT ([facility].) / Supplementary Attestation Discharge Planning I have [...] treatment team and contact the PT or MANAGEMENT LECTURER currently assigned to this patient. If a physical therapy clinician is not assigned to this patient, please call [phone]. 12/02/23 0830 General Chart Reviewed Yes Session [...] year. She has been living in the [facility] for almost two years. Prior Function Level of [place] Independent with ambulation;Independent functional transfers Lives With Alone Receives Help From Facility staff (Staff is available director experimental medicine. She does have a son who lives [...] with Outstretched Arm While Standing 0 9. Metal Coater Object from Floor from a Standing Position [...] Health PT (Return to prior living at [facility].) PT Recommendation/Plan Comments Pt informed of PT [...] Age: 78 y.o. female Admission: 11/24/2023 Bed: [id number] LOS: 8 days Subjective Chief complaint: nausea [...] (CMS/HCC) (HCC) Assessment & Plan Follows with [facility] Cardiology. History of afib with difficulty with [...] 35 minutes which was spent performing a ttjx-go-mgxe encounter and personally completing the provider-level activities [...] Afib s/p cardioversion 02/2023 on Eliquis, CAD, [place] in [place] s/p CABG, apical variant HCM, [...] ARTERY BYPASS GRAFT 2012 Double by-pass - LOCATED [facility]IN [facility] FLUORO GUIDED INJECTION HIP RIGHT Right 05/16/2022 FLUORO GUIDED INJECTION HIP RIGHT Right 08/15/2022 FLUORO GUIDED INJECTION HIP RIGHT Right 12/10/2022 FLUORO GUIDED INJECTION HIP RIGHT Right 05/13/[address] James ([place], [place]) TOTAL KNEE ARTHROPLASTY Right 2018 Social [...] 0.88 1.18* 1.23* < > 1.19* 1.22* [facility] mL/min/1.73 m2 68 48* 45* < > [...] Chol Diet effective now Question Answer Comment ([facility]) Diet type Restricted Fat / [...] reports decreased po intake x 4 days MANAGEMENT LECTURER. Reports 10# recent wt loss. Per chart review, pt has lost 8# x 8 months (not significant). Pt declined all oral nutrition supplements. Denies NV, reports last BM MANAGEMENT LECTURER. Reports good dentition. Pt reports when things [...] Weight changes Graham Zafar MS, RD, LD [facility] * Oscar De La Torre MD - 12/01/2023 12:40 PM CDT Daily Progress Note Division of Hospital Medicine Name: Tiera Lobato : 1945 Today's Date: December 01, 2023 Age: 78 y.o. female Admission: 11/24/2023 Bed: [id number] LOS: 7 days Subjective Chief complaint: Slightly [...] Chronic kidney disease (CKD), stage III (moderate) ([facility]) Assessment & Plan Cr 1.18 [...] anemia, unspecified Assessment & Plan [facility]. Anemia thought to be due to iron deficiency as well as CKD stage IIIb. Received iron infusion in 09/2023. On admission hgb 8.4 (bl 7-9). Iron 72, ferritin 1715. - Stable H/H, last 8.5 A-fib (CMS/HCC) ([facility]) Assessment & Plan [facility]. History of afib with difficulty [...] 45 minutes which was spent performing a gkfx-oe-qvcy encounter and personally completing the provider-level activities [...] Age: 78 y.o. female Admission: 11/24/2023 Bed: [id number] LOS: 6 days Subjective Chief complaint: Feels [...] anemia, unspecified Assessment & Plan Follows with [facility] Hematology. Anemia thought to be due to iron deficiency as well as CKD stage IIIb. Received iron infusion in 09/2023. On admission hgb 8.4 (bl 7-9). Iron 72, ferritin 1715. - Stable H/H A-fib (CMS/HCC) (HCC) Assessment & Plan Follows with [facility] Cardiology. History of afib with difficulty with [...] 42 minutes which was spent performing a ulpf-bp-qwqs encounter and personally completing the provider-level activities [...] Age: 78 y.o. female Admission: 11/24/2023 Bed: [id number] LOS: 5 days Subjective Chief complaint: Denies [...] anemia, unspecified Assessment & Plan [facility]. Anemia thought to be due to iron deficiency as well as CKD stage IIIb. Received iron infusion in 09/2023. On admission hgb 8.4 (bl 7-9). Iron 72, ferritin 1715. - Monitor CBC A-fib (CMS/HCC) (HCC) Assessment & Plan [facility]. History of afib with difficulty [...] 43 minutes which was spent performing a crmp-cc-ibzh encounter and personally completing the provider-level activities documented in the note. This includes time spent prior to the visit and after the visit in direct care of the patient. This time does not include time spent in any separately reportable services. Oscar De La Torre MD * Janice Moilna MD - 11/28/2023 2:49 PM CDT Medicine [...] moderate compression #Afib on Eliquis [facility]. History of afib with difficulty with rate control requiring cardioversion. Home regimen: amiodarone 200mg daily, metoprolol XL 25mg daily, eliquis 5mg BID. PLAN - continue home amiodarone 200mg daily - continue home metoprolol XL 25mg daily - restart eliquis 5mg BID #Chronic Normocytic Anemia [facility]. Anemia thought to be due [...] Rico MD - 11/27/2023 7:49 AM CDT [facility] Acute Care Emergency Surgery Consult Progress Note [...] tablet 1 tablet, 1 tablet, oral, Daily, Jnaice Molina MD, 1 tablet at 11/26/23 08 [...] 02/2023 on Eliquis (last taken 11/23/23), CAD, [place] s/p CABG, HTN, HLD, apical [...] Ensure abdominal pain improves post procedure - [facility] will sign off at this time. Please feel free to reach out to the number below for any questions or concerns. Please call the [facility] Inpatient Consult Phone with any questions or concerns regarding this patient. Tima Rico MD Resident Physician General Surgery [facility] Inpatient Consult [facility] ED Consult [facility] Outpatient Clinic - option 1 Cosigned [...] Section of Acute and Critical Care Surgery [facility] * Carmen West MD - 11/26/2023 6:51 PM CDT [facility] Acute Care Emergency Surgery Consult Progress Note [...] 02/2023 on Eliquis (last taken 11/23/23), CAD, [place] s/p CABG, HTN, HLD, apical [...] pain improves post procedure Please call the [facility] Inpatient Consult Phone with any questions or concerns regarding this patient. Carmen West MD Resident Physician General Surgery [facility] Inpatient Consult [facility] ED Consult [facility] Outpatient Clinic - option 1 Cosigned [...] Section of Acute and Critical Care Surgery [facility] * Janice Molina MD [...] elevated transaminases #Afib on Eliquis [facility]. History of afib with difficulty with rate control requiring cardioversion. Home regimen: amiodarone 200mg daily, metoprolol XL 25mg daily, eliquis 5mg BID. PLAN - continue home amiodarone 200mg daily - continue home metoprolol XL 25mg daily - hold home eliquis for procedure #Chronic Normocytic Anemia [facility]. Anemia thought to be due [...] Status: Full Code Dispo: pending ERCP Janice Molnia MD PGY-1, Internal Medicine Cosigned by Duong [...] Afib s/p cardioversion 02/2023 on Eliquis, CAD, [place] s/p CABG, apical variant HCM, [...] ARTERY BYPASS GRAFT 2012 Double by-pass - [facility] FLUORO GUIDED INJECTION HIP RIGHT Right 05/16/2022 FLUORO GUIDED INJECTION HIP RIGHT Right 08/15/2022 FLUORO GUIDED INJECTION HIP RIGHT Right 12/10/2022 FLUORO GUIDED INJECTION HIP RIGHT Right 05/13/[address] James ([place], [place]) TOTAL KNEE ARTHROPLASTY Right 2018 Social [...] BUN SERUM mg/dL 13 CREATININE mg/dL 1.22* PBS-EVJ-MHQFBGY mL/min/1.73 m2 46* CALCIUM mg/dL 9.8 ALBUMIN [...] reports decreased po intake x 4 days MANAGEMENT LECTURER. Reports 10# recent wt loss. Per chart review, pt has lost 8# x 8 months (not significant). Pt declined all oral nutrition supplements. Denies NV, reports last BM MANAGEMENT LECTURER. Reports good dentition. Pt reports when things [...] ARTERY BYPASS GRAFT 2013 Double by-pass - [facility] FLUORO GUIDED INJECTION HIP RIGHT Right 05/16/2022 FLUORO GUIDED INJECTION HIP RIGHT Right 08/15/2022 FLUORO GUIDED INJECTION HIP RIGHT Right 12/10/2022 FLUORO GUIDED INJECTION HIP RIGHT Right 05/13/[address] James ([place], [place]) TOTAL KNEE ARTHROPLASTY Right 2017 (Not [...] in this encounter Procedure Notes * Heydi Fetnon MD - 11/26/2023 4:02 PM CDTAssociated Order(s): UPPER EUS GI ENDOSCOPY [facility] Patient Name: Tiera Lobato Procedure Date: 11/26/2023 4:02 PM Date of : 1945 Admit Type: Inpatient Age: 78 Gender: Female Attending MD: Heydi Fenton M.D. Room: [facility] ENDOSCOPY ROOM 2 Note Status: Finalized [...] obtained.The Olympus curved linear array therapeutic endosonoscope [id number] was introduced through the mouth, and advanced [...] Female Attending MD: Heydi Fenton M.D. Room: [facility] ENDOSCOPY ROOM 2 Note Status: Finalized Procedure: ERCP Indications: Bile duct stone seen on EUS and on CTAP, normal bilirubin Referring MD: Duong Choi, Cristian Ling M.D. Providers: Heydi Fenton M.D., Marco Antonio Gusman M.D. Medicines: Monitored Anesthesia Care, Indomethacin [address] Complications: No immediate complications. Estimated Blood Loss: [...] discussed and informed consent was obtained. The [id number] Duodenoscope was introduced through the mouth, and used to inject contrast into and used to inject contrast into the bile duct. The ERCP was accomplished without difficulty. The patient tolerated the procedure well. Findings: A research scientist film of the abdomen was obtained. Surgical [...] the days following this procedure please call [phone]. After hours and evenings please call [phone] and speak to the GI fellow carbon paper machine operator. Please tell the fellow that Dr. Fentondid [...] from the original note were not included. [facility] Team A Trauma Surgery History and Physical Date of Evaluation: 11/25/23 Sex: female Date of : 1945 Consulting provider: Consult to General Surgery Consult performed by: Carmencita Small MD Consult ordered by: Elio Lewis MD Trauma Level Consult Assessment/Plan: Tiera Lobato is a 78 y.o. female with PMH of IBS, Afib s/p cardioversion 02/2023 on Eliquis (last taken 11/23/23), CAD, [place] s/p CABG, HTN, HLD, apical [...] Stable Disposition of Patient: will follow on [facility] Consult service FOLLOWUP REQUIRED: Patient should call [phone] - option 1 after discharge during normal business hours (M-) to schedule a follow-up appointment in 1 week at the Acute and Critical Care Surgery Clinic in the 3rd floor of the [facility] Carmencitajackie Madrigal [facility] Trauma Surgery November 25, 2023 3:51 PM [facility] ED Consult [facility] Outpatient Clinic - option 1 Discussed [...] coming to the ED via EMS from [facility] in [facility]. Patient has had diarrhea and vomiting for the past 5 days. HPI: Tiera Lobato is a 78 y.o. female with PMH of IBS, Afib s/p cardioversion 02/2023 on Eliquis (last taken 11/23/23), CAD, [place] s/p CABG, HTN, HLD, apical [...] RLE hematoma, seen on US to be [id number] large. Pt reports it has decreased in [...] ARTERY BYPASS GRAFT 2012 Double by-pass - [facility] FLUORO GUIDED INJECTION HIP RIGHT Right 05/16/2022 FLUORO GUIDED INJECTION HIP RIGHT Right 08/15/2022 FLUORO GUIDED INJECTION HIP RIGHT Right 12/10/2022 FLUORO GUIDED INJECTION HIP RIGHT Right 05/13/[address] James ([place], [place]) TOTAL KNEE ARTHROPLASTY Right 2018 Family [...] apply compression dressing. Karen Hawk MD [facility], [facility] Acute and Critical Care Surgery [facility] * Melisa Pritchett MD - 11/24/2023 3:32 PM CDTAssociated Order(s): IP CONSULT TO GASTROENTEROLOGY Biliary Initial Consult Chief complaint: nausea and vomiting Reason for consult: ERCP Requesting provider: Bolivar Llamas MD HPI: This is a 78 y.o. female with PMH IBS, Afib s/p cardioversion 02/2023 on Eliquis, CAD, [place] s/p CABG, apical variant HCM, [...] ARTERY BYPASS GRAFT 2012 Double by-pass - [facility] FLUORO GUIDED INJECTION HIP RIGHT Right 05/16/2022 FLUORO GUIDED INJECTION HIP RIGHT Right 08/15/2022 FLUORO GUIDED INJECTION HIP RIGHT Right 12/10/2022 FLUORO GUIDED INJECTION HIP RIGHT Right 05/13/[address] James ([place], [place]) TOTAL KNEE ARTHROPLASTY Right 2017 (Not [...] Afib s/p cardioversion 02/2023 on Eliquis, CAD, [place] s/p CABG, apical variant HCM, [...] 12:36 PM CDT Attempted to call report [facility] unable to reach nurse. left [...] Afib s/p cardioversion 02/2023 on Eliquis, CAD, [place] in [place] s/p CABG, HTN HLD, apical [...] changes in urination. History provided by: Patient chief librarian branch or department used: No Patient History: Patient Active Problem List Diagnosis Date Noted ??? Iron deficiency anemia, unspecified 10/05/2023 ??? NSVT (nonsustained ventricular tachycardia) ([facility]) 08/20/2023 ??? A-fib (CMS/HCC) ([facility]) 02/17/2023 ??? Atrial fibrillation (CMS/HCC) ([facility]) 01/13/2023 ??? Apical variant hypertrophic cardiomyopathy ([facility]) 12/05/2022 ??? Paroxysmal atrial fibrillation (CMS/HCC) ([facility]) 12/05/2022 ??? Right hip pain 11/22/2021 ??? Other osteoporosis without current pathological fracture 03/07/2021 ??? Lumbar stenosis with neurogenic claudication 09/29/2020 ??? History of [place] (myocardial infarction) 12/10/2017 ??? Primary hypertension 11/06/2012 ??? Coronary artery disease involving [place] coronary artery of [place] heart without angina pectoris 09/23/2012 ??? Hx of CABG 09/23/2012 Past Medical History: Diagnosis Date ??? Acid reflux ??? Heart murmur ??? High cholesterol ??? History of blood clots 1960s in leg as teenager - had phlebitis ??? History of [place] (myocardial infarction) 2012 ??? History of vertebral [...] Right 05/13/2023 ??? MICRODISCECTOMY 1998 Dr. James ([place], [place]) ??? TOTAL KNEE ARTHROPLASTY Right 2018 [...] scabs Neurological: Mental Status: She is alert. [facility] Medical Decision Making 78 yo female [...] surrounding. By: Elisha Jose MD Time: 11/23 1311 Comment: Hx IBS, a-fib Eliquis P/w N/V/D in setting of Abx for leg wound Admit Med elevated LFTs Will d/w GI re: ERCP By: Bolivar Llamas MD Time: 11/23 4685 Comment: GI consulted re: stone, will evaluate patient By: Boilvar Llamas MD Time: 11/23 7746 Comment: Attending signout: 78 yoF with hx [...] coming to the ED via EMS from [facility] in [facility]. Patient has had diarrhea and vomiting for the past 5 days. documented in this encounter Miscellaneous Notes * Plan of Care - Suraj Mendes RN - 12/03/2023 12:22 PM CDT 12/03/23 1222 Discharge Summary Discharge Disposition Assisted living [facility] Facility Contact Number [phone] Equipment/Provider Needs No Home Needs Identified Anticipated [...] discharge needs arise, please contact the covering nurse case manager. Suraj Mendes RN Case Manager * Plan [...] Shift: monitor labs/vitals, pain mgmt, promote rest Pediatric Cardiologist Patient Centered Goal for Treatment: safe discharge * Plan of Care - Suraj Mendes RN - 12/02/2023 3:14 PM CDT 12/02/23 1514 Discharge Planning Support System Family members Anticipated discharge level of care Assisted living Facility Information and Contact [facility] Progression of Care Update Per Medical Chart/Rounds/IDR: IDR ADD: 12/02 Education Needs Identified (plan): CM sent referrals in [facility] for [facility] (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 Anticipate discharge back to [facility] tomorrow F/U Appointments: PCP appt 12/10 Patient's Identified Problem/Goal Problem:?Ensure acute medical needs are met and that patient has a safe discharge plan. Goal:?Secure a discharge plan that patient/family are agreeable with?and ensure patient has continuum of care. Patient and/or family are agreeable with plan. applications manager will continue to follow and assist with discharge planning as needed. If any further discharge needs arise, please contact the covering nurse case manager. * Plan of Care - Baylee Andrea [...] Afib s/p cardioversion 02/2023 on Eliquis, CAD, [place] s/p CABG, apical variant HCM, [...] care Outcome: Progressing * Consults, Subsequent - Melsia Pritchett MD - 12/01/2023 10:50 AM CDT [...] Afib s/p cardioversion 02/2023 on Eliquis, CAD, [place] in [place] s/p CABG, apical variant HCM, [...] Afib s/p cardioversion 02/2023 on Eliquis, CAD, [place] in [place] s/p CABG, apical variant HCM, [...] Problem(s): Iron deficiency anemia, unspecified Follows with [facility] Hematology. Anemia thought to be due to [...] Associated Problem(s): A-fib (CMS/HCC) (HCC) Follows with [facility] Cardiology. History of afib with difficulty with [...] on AC, ApicalVariant HCM, CAD (Dr. Stafford; [place] 08[place] s/p CABG (LAWSON to LAD, SVG [...] is able tolerate low fat diet.Repeat E COMMODITY MANAGEMENT SPECIALIST in 6-8 weeks for stent removal, will [...] 5mg BID. #Chronic Normocytic Anemia [facility]. Anemia thought to be due [...] AC, Apical Variant HCM, CAD (Dr. Stafford; [place] 08[place] s/p CABG (LAWSON to LAD, SVG to [place]), HTN, CKD stage 3b (b/l cr 1.2 -1.4), and Vertigo who was admitted with h epatitis/cholodocholithaisis on 11/24/23 and now being transferred to hospitalist after prior roomate being ruled out for TB. History has been obtained from the patient and indepednent review of our multiple records systems including [employer]. Below is a sumamry of above sources. [...] on 11/28/23 and lipase demonstrated an elevation [id number]. She was made NPO and started on [...] monitor CBC #Chronic Normocytic Anemia [facility]. Anemia thought to be due [...] Afib s/p cardioversion 02/2023 on Eliquis, CAD, [place] in [place] s/p CABG, apical variant HCM, [...] Afib s/p cardioversion 02/2023 on Eliquis, CAD, [place] in [place] s/p CABG, apical variant HCM, CKD III, and chronic anemia who presents with nausea/vomiting and leg swelling. (H&P) MD Tracy: #Afib on Eliquis Follows with [facility] Cardiology. History of afib with difficulty with [...] specify below Additional Provider Response: References: Source: [facility], 2018, page 3. From [...] medical record. Estelle Clark RN, BSN Clinical Dining Room Manager [email or web address] [phone] * Initial Assessments - Marce Browne RN [...] transport arranged?: No (11/26/231006) Health Insurance Coverage: [employer]. Prescription Coverage: not sure Pharmacy: [facility] [address] [address] Primary Care Provider: Cristian Ling MD- verified. [...] Yes, patient can return Care Facility Name: [facility] contact name and number:: [facility] / [phone] Steps in home?: No steps inside or outside Medication management: Independent (11/25/231812) Potential discharge needs include: applications manager will follow for post acute discharge [...] Additional Information: Confirmed address and phone [facility]. Patient independent in ADLS. Lives in Assisted [...] Collaboration with Patient, Provider, Direct Care Nurse, Hearing Aid Mechanic, and other members of theHealth Care Team to assure needed interventions completed. 2. Return patient to optimal level of self-care post discharge. 3. It Project Lead will follow for Discharge Planning - interventions [...] surrounding. By: Elisha Jose MD Time: 11/23 6581 Comment: Hx IBS, a-fib Eliquis P/w N/V/D in setting of Abx for leg wound Admit Med elevated LFTs Will d/w GI re: ERCP By: Bolivar Llamas MD Time: 11/23 5759 Comment: GI consulted re: stone, will evaluate patient By: Bolivar Llamas MD Time: 11/23 9842 Comment: Attending signout: 78 yoF with hx [...] Afib s/p cardioversion 02/2023 on Eliquis, CAD, [place] in 2012 s/p CABG, apical variant HCM, [...] - For patients in ED and on [facility], please contact [phone] - For patients on [facility], please contact [phone] * ED Re-evaluation Note - Nallely Johns [...] Afib s/p cardioversion 02/2023 on Eliquis, CAD, [place] in 2012 s/p CABG, HTN HLD, apical [...] ERCP By: Bolivar Llamas MD Time: 11/23 1735 Comment: GI consulted re: cherrie, will evaluate [...] exam available in the chart. Brief summary: iTera Lobato is a 78 y.o. female with PMH IBS, Afib s/p cardioversion 02/2023 on Eliquis, CAD, [place] in 2012 s/p CABG, HTN HLD, apical [...] ERCP By: Bolivar Llamas MD Time: 11/23 2295 Comment: GI consulted re: cherrie will evaluate patient By: Bolivar Llamas MD Time: 11/23 9243 Comment: Attending signout: 78 yoF with hx of IBS, afib on eliquis, CKD, leg wound on abx here withN/V/D. LFTs elevated and found to have CBD stone. No fever, chills. GI to see in AM. By: Baylee Pepper MD Time: 11/24 1110 Value: C. diff result: Negative, free toxin Comment: (Reviewed) By: Nallely Johns MD Sean Lamb, MD Emergency Medicine, PGY-3 Pager: [phone] Bolivar Llamas MD Resident 11/25/23 1140 documented [...] BLOOD ORDERABLES Final Result Performing Organization Address [facility] Co de Phone Number [facility] [place] [address] * Type and screen (12/01/2023 10:06 PM CDT) Pathologist [facility] ABO Rh B Negative Cheri, indirect Negative [facility] Blood 12/01/2023 10:0 6 PM CDT 12/01/2023 10:34 PM CDT Narrative [facility] - 12/01/2023 11:29 PM CDT Has the patient had Daratumumab or Isatuximab in the past 6 months?->Unknown Oscar De La Torre MD LAB BLOOD BANK TEST ORDERAB LES Final Result Performing Organization Address [facility] [place] [address] * (ABNORMAL) Comprehensive metabolic panel (12/01/2023 10:06 PM CDT) Pathologist [facility] Sodium 139 135 - 145 mmol/L Potassium, pl 3.7 3.3 - 4.9 mmol/L [facility] Chloride 104 97 - 110 mmol/L [facility] CO2 26 22 - 32 mmol/L [facility] Anion gap 9 2 - 15 mmol/L [facility] BUN 7 6 - 25 mg/dL [facility] Creatinine 0.97 0.60 - 1.10 mg/dL [facility] Glucose 93 70 - 199 mg/dL [facility] Comment: Interpretive Data Fasting glucose >/= 126 [...] 2022. Calcium 9.2 8.5 - 10.3 mg/dL [facility] Bilirubin, total 0.6 0.1 - 1.2 mg/dL [facility] Protein, pl 5.8(L) 6.5 - 8.5 g/dL [facility] Albumin 3.2(L) 3.5 - 5.0 g/dL [facility] Alk phos 121 40 - 130 Units/L [facility] ALT 195(H) 7 - 45 Units/L [facility] AST 88(H) 10 - 45 Units/L [facility] Blood 12/01/2023 10:0 6 PM CDT 12/01/2023 10:38 PM CDT us Oscar De La Torre MD LAB BLOOD ORDERABLES Final Result [facility] Department [place] [address] * (ABNORMAL) CBC without differential (12/01/2023 10:06 PM CDT) [facility] WBC 4.0 3.8 - 9.9 K/cumm Hgb 8.6(L) 11.9 - 15.5 g/dL [facility] Hct 27.9(L) 35.6 - 45.5 % [facility] Plt 216 150 - 400 K/cumm [facility] MPV 12.6(H) 9.1 - 12.3 fL [facility] RBC 3.07(L) 3.90 - 5.20 M/cumm [facility] MCV 90.9 81.3 - 96.4 fL [facility] MCH 28.0 27.1 - 33.3 pg [facility] MCHC 30.8(L) 32.3 - 35.7 g/dL [facility] RDW CV 21.3(H) 11.1 - 14.9 % [facility] RDW SD 69.9(H) 35.7 - 48.1 fL [facility] NRBC abs 0.00 0.00 - 0.01 K/cumm [facility] Blood 12/01/2023 10:0 6 PM CDT 12/01/2023 10:38 PM CDT us Oscar De La Torre MD LAB BLOOD ORDERABLES Final Result [facility] [place] [address] * eGFR (11/29/2023 9:59 PM CDT) eGFR [...] Torre MD LAB BLOOD ORDERABLES Final Result [facility] [place] [address] * (ABNORMAL) Differential, auto (11/29/2023 9:59 PM CDT) Neutrophil abs 2.7 1.5 - 6.5 K/cumm Imm gran abs 0.0 0.0 - 0.1 K/cumm [facility] Lymphocyte abs 0.7(L) 0.8 - 3.3 K/cumm [facility] Monocyte abs 0.6 0.2 - 0.8 K/cumm [facility] Eosinophil abs 0.1 0.0 - 0.5 K/cumm [facility] Basophil abs 0.0 0.0 - 0.1 K/cumm [facility] Neutrophil pct 64.1 % [facility] Comment: Interpretive Data Percent cell count reference ranges are not reported, since discordance with absolute values may lead to misinterpretation of CBC data. Current Interpretive Data was last revised on 2017. Imm gran pct 0.2 % [facility] Comment: Interpretive Data Percent cell count reference ranges are not reported, since discordance with absolute values may lead to misinterpretation of CBC data. Current Interpretive Data was last revised on 2017. Lymphocyte pct 17.6 % [facility] Comment: Interpretive Data Percent cell count reference ranges are not reported, since discordance with absolute values may lead to misinterpretation of CBC data. Current Interpretive Data was last revised on 2017. Monocyte pct 15.4 % [facility] Comment: Interpretive Data Percent cell count reference ranges are not reported, since discordance with absolute values may lead to misinterpretation of CBC data. Current Interpretive Data was last revised on 2017. Eosinophil pct 1.7 % [facility] Comment: Interpretive Data Percent cell count reference ranges are not reported, since discordance with absolute values may lead to misinterpretation of CBC data. Current Interpretive Data was last revised on 2017. Basophil pct 1.0 % [facility] Comment: Interpretive Data Percent cell count reference ranges are not reported, since discordance with absolute values may lead to misinterpretation of CBC data. Current Interpretive Data was last revised on 2017. Blood 11/29/2023 9:59 PM CDT 11/29/2023 10:35 PM CDT us Oscar De La Torre MD LAB BLOOD ORDERABLES Final Result [facility] Department [place] [address] * (ABNORMAL) Comprehensive metabolic panel (11/29/2023 9:59 PM CDT) Sodium 136 135 - 145 mmol/L Potassium, pl 3.6 3.3 - 4.9 mmol/L [facility] Chloride 103 97 - 110 mmol/L [facility] CO2 24 22 - 32 mmol/L [facility] Anion gap 9 2 - 15 mmol/L [facility] BUN 9 6 - 25 mg/dL [facility] Creatinine 0.88 0.60 - 1.10 mg/dL [facility] Glucose 88 70 - 199 mg/dL [facility] Comment: Interpretive Data Fasting glucose >/= 126 [...] 2022. Calcium 8.6 8.5 - 10.3 mg/dL [facility] Bilirubin, total 0.7 0.1 - 1.2 mg/dL [facility] Protein, pl 5.8(L) 6.5 - 8.5 g/dL [facility] Albumin 3.1(L) 3.5 - 5.0 g/dL [facility] Alk phos 123 40 - 130 Units/L [facility] ALT 263(H) 7 - 45 Units/L [facility] AST 104(H) 10 - 45 Units/L [facility] Blood 11/29/2023 9:59 PM CDT 11/29/2023 10:34 PM CDT us Oscar De La Torre MD LAB BLOOD ORDERABLES Final Result [facility] [place] [address] * (ABNORMAL) CBC with auto differential (11/29/2023 9:59 PM CDT) WBC 4.2 3.8 - 9.9 K/cumm Hgb 8.5(L) 11.9 - 15.5 g/dL [facility] Hct 26.3(L) 35.6 - 45.5 % [facility] Plt 200 150 - 400 K/cumm [facility] MPV 12.3 9.1 - 12.3 fL [facility] RBC 2.96(L) 3.90 - 5.20 M/cumm [facility] MCV 88.9 81.3 - 96.4 fL [facility] MCH 28.7 27.1 - 33.3 pg [facility] MCHC 32.3 32.3 - 35.7 g/dL [facility] RDW CV 21.3(H) 11.1 - 14.9 % [facility] RDW SD 68.0(H) 35.7 - 48.1 fL [facility] NRBC abs 0.00 0.00 - 0.01 K/cumm [facility] Blood 11/29/2023 9:59 PM CDT 11/29/2023 10:35 PM CDT us Oscar De La Torre MD LAB BLOOD ORDERABLES Final Result Performing Organization Address [facility] Co de Phone Number [facility] RAMIRE[facility] [place] [address] * (ABNORMAL) eGFR (11/28/2023 5:49 PM CDT) [...] ORDERABLES Final R esult Performing Organization Address [facility] Co de Phone Number [facility] RAMIREZ [facility] [place] [address] * (ABNORMAL) Differential, auto (11/28/2023 5:49 PM CDT) Neutrophil abs 2.6 1.5 - 6.5 K/cumm Imm gran abs 0.0 0.0 - 0.1 K/cumm [facility] Lymphocyte abs 0.6(L) 0.8 - 3.3 K/cumm [facility] Monocyte abs 0.4 0.2 - 0.8 K/cumm [facility] Eosinophil abs 0.0 0.0 - 0.5 K/cumm [facility] Basophil abs 0.0 0.0 - 0.1 K/cumm [facility] Neutrophil pct 70.3 % [facility] Comment: Interpretive Data Percent cell count reference ranges are not reported, since discordance with absolute values may lead to misinterpretation of CBC data. Current Interpretive Data was last revised on 2017. Imm gran pct 0.3 % [facility] Comment: Interpretive Data Percent cell count reference ranges are not reported, since discordance with absolute values may lead to misinterpretation of CBC data. Current Interpretive Data was last revised on 2017. Lymphocyte pct 15.8 % [facility] Comment: Interpretive Data Percent cell count reference ranges are not reported, since discordance with absolute values may lead to misinterpretation of CBC data. Current Interpretive Data was last revised on 2017. Monocyte pct 11.7 % [facility] Comment: Interpretive Data Percent cell count reference ranges are not reported, since discordance with absolute values may lead to misinterpretation of CBC data. Current Interpretive Data was last revised on 2017. Eosinophil pct 1.1 % [facility] Comment: Interpretive Data Percent cell count reference ranges are not reported, since discordance with absolute values may lead to misinterpretation of CBC data. Current Interpretive Data was last revised on 2017. Basophil pct 0.8 % [facility] Comment: Interpretive Data Percent cell count reference ranges are not reported, since discordance with absolute values may lead to misinterpretation of CBC data. Current Interpretive Data was last revised on 2017. Blood 11/28/2023 5:49 PM CDT 11/28/2023 6:04 PM CDT us Jose Roberto Hernandez MD LAB BLOOD ORDERABLES Final R esult [facility] Department [place] [address] * Magnesium (11/28/2023 5:49 PM CDT) Pathologist [facility] Magnesium 2.1 1.4 - 2.5 mg/dL Blood 11/28/2023 5:49 PM CDT 11/28/2023 6:04 PM CDT Jose Roberto Hernandez MD LAB BLOOD ORDERABLES Final R esult Performing Organization Address [facility] Co de Phone Number [facility] [place] [address] * (ABNORMAL) Comprehensive metabolic panel (11/28/2023 5:49 PM CDT) Pathologist [facility] Sodium 138 135 - 145 mmol/L Potassium, pl 3.9 3.3 - 4.9 mmol/L [facility] Chloride 104 97 - 110 mmol/L [facility] CO2 23 22 - 32 mmol/L [facility] Anion gap 11 2 - 15 mmol/L [facility] BUN 18 6 - 25 mg/dL [facility] Creatinine 1.18(H) 0.60 - 1.10 mg/dL [facility] Glucose 87 70 - 199 mg/dL [facility] Comment: Interpretive Data Fasting glucose >/= 126 [...] 2022. Calcium 8.8 8.5 - 10.3 mg/dL [facility] Bilirubin, total 0.8 0.1 - 1.2 mg/dL [facility] Protein, pl 5.9(L) 6.5 - 8.5 g/dL [facility] Albumin 3.4(L) 3.5 - 5.0 g/dL [facility] Alk phos 133(H) 40 - 130 Units/L [facility] ALT 338(H) 7 - 45 Units/L [facility] AST 114(H) 10 - 45 Units/L [facility] Blood 11/28/2023 5:49 PM CDT 11/28/2023 6:04 PM CDT us Jose Roberto Hernandez MD LAB BLOOD ORDERABLES Final R esult [facility] Department [place] [address] * (ABNORMAL) CBC with auto differential (11/28/2023 5:49 PM CDT) WBC 3.7(L) 3.8 - 9.9 K/cumm Hgb 8.0(L) 11.9 - 15.5 g/dL [facility] Hct 25.5(L) 35.6 - 45.5 % [facility] Plt 208 150 - 400 K/cumm [facility] MPV 11.6 9.1 - 12.3 fL [facility] RBC 2.85(L) 3.90 - 5.20 M/cumm [facility] MCV 89.5 81.3 - 96.4 fL [facility] MCH 28.1 27.1 - 33.3 pg [facility] MCHC 31.4(L) 32.3 - 35.7 g/dL [facility] RDW CV 20.9(H) 11.1 - 14.9 % [facility] RDW SD 67.4(H) 35.7 - 48.1 fL [facility] NRBC abs 0.00 0.00 - 0.01 K/cumm [facility] Blood 11/28/2023 5:49 PM CDT 11/28/2023 6:04 PM CDT us Jose Roberto Hernandez MD LAB BLOOD ORDERABLES Final R esult Performing Organization Address City/[facility]/ZIP Co de Phone Number [facility] Department [place] [address] * Type and screen (11/28/2023 5:49 PM CDT) ABO Rh B Negative Cheri, indirect Negative [facility] Blood 11/28/2023 5:49 PM CDT 11/28/2023 6:02 PM CDT Narrative [facility] - 11/28/2023 7:02 PM CDT Has the patient had Daratumumab or Isatuximab in the past 6 months?->Unknown Duong Choi MD LAB BLOOD BANK TEST ORDE RABLES Final Result Performing Organization Address [facility] Co de Phone Number [facility] Department [place] [address] * Stool culture Stool Rectum (11/28/2023 6:32 AM CDT) Direct Specimen Exam Shiga Toxin Testing: Antigen detection assay for Shiga-toxin NEGATIVE for Shiga Toxin 1 and Shiga Toxin 2. Report Final Report: No growth of enteric bacterial pathogens [facility] Stool (Rectum) 11/28/2023 6: 32 AM CDT 11/28/2023 7:45 AM CDT Narrative [facility] - 12/02/2023 8:52 AM CDT Testing performed by [facility] ([phone]). Routine stool cultures include procedures to detect Salmonella, Shigella, Edwardsiella, Aeromonas, Pleisiomonas, Campylobacter, Yersinia, E. coli O157, and Shiga-like toxins. ?? Vibrio is cultured only upon special request. ??If Vibrio is suspected, please call the laboratory at [phone]. Interpretive data was last updated October 21, 2016. us Jose Roberto Hernandez MD LAB MICROBIOLOGY - GENERAL O RDERABLES Final Result Performing Organization Address [facility] Co de Phone [facility] [place] [address] * (ABNORMAL) eGFR (11/27/2023 9:48 PM CDT) [...] ORDERABLES Final R esult Performing Organization Address [facility] Co de Phone Number [facility] Department [place] [address] * Differential, auto (11/27/2023 9:48 PM CDT) Neutrophil abs 2.4 1.5 - 6.5 K/cumm Imm gran abs 0.0 0.0 - 0.1 K/cumm [facility] Lymphocyte abs 0.9 0.8 - 3.3 K/cumm [facility] Monocyte abs 0.5 0.2 - 0.8 K/cumm [facility] Eosinophil abs 0.0 0.0 - 0.5 K/cumm [facility] Basophil abs 0.0 0.0 - 0.1 K/cumm [facility] Neutrophil pct 63.0 % [facility] Comment: Interpretive Data Percent cell count reference ranges are not reported, since discordance with absolute values may lead to misinterpretation of CBC data. Current Interpretive Data was last revised on 2017. Imm gran pct 0.3 % [facility] Comment: Interpretive Data Percent cell count reference ranges are not reported, since discordance with absolute values may lead to misinterpretation of CBC data. Current Interpretive Data was last revised on 2017. Lymphocyte pct 22.4 % [facility] Comment: Interpretive Data Percent cell count reference ranges are not reported, since discordance with absolute values may lead to misinterpretation of CBC data. Current Interpretive Data was last revised on 2017. Monocyte pct 12.4 % [facility] Comment: Interpretive Data Percent cell count reference ranges are not reported, since discordance with absolute values may lead to misinterpretation of CBC data. Current Interpretive Data was last revised on 2017. Eosinophil pct 1.1 % [facility] Comment: Interpretive Data Percent cell count reference ranges are not reported, since discordance with absolute values may lead to misinterpretation of CBC data. Current Interpretive Data was last revised on 2017. Basophil pct 0.8 % [facility] Comment: Interpretive Data Percent cell count reference ranges are not reported, since discordance with absolute values may lead to misinterpretation of CBC data. Current Interpretive Data was last revised on 2017. Blood 11/27/2023 9:48 PM CDT 11/27/2023 10:36 PM CDT us Jose Roberto Hernandez MD LAB BLOOD ORDERABLES Final R esult Performing Organization Address City/[facility]/ZIP Co de Phone Number [facility] Department [place] [address] * Magnesium (11/27/2023 9:48 PM CDT) Pathologist [facility] Magnesium 1.9 1.4 - 2.5 mg/dL Blood 11/27/2023 9:48 PM CDT 11/27/2023 10:37 PM CDT us Jose Roberto Hernandez MD LAB BLOOD ORDERABLES Final R esult Performing Organization Address [facility] de Phone Number [facility] Department [place] [address] * (ABNORMAL) Comprehensive metabolic panel (11/27/2023 9:48 PM CDT) [facility] Sodium 137 135 - 145 mmol/L Potassium, pl 4.0 3.3 - 4.9 mmol/L [facility] Chloride 103 97 - 110 mmol/L [facility] CO2 23 22 - 32 mmol/L [facility] Anion gap 11 2 - 15 mmol/L [facility] BUN 20 6 - 25 mg/dL [facility] Creatinine 1.23(H) 0.60 - 1.10 mg/dL [facility] Glucose 93 70 - 199 mg/dL [facility] Comment: Interpretive Data Fasting glucose >/= 126 [...] 2022. Calcium 9.3 8.5 - 10.3 mg/dL [facility] Bilirubin, total 0.9 0.1 - 1.2 mg/dL [facility] Protein, pl 6.2(L) 6.5 - 8.5 g/dL [facility] Albumin 3.5 3.5 - 5.0 g/dL [facility] Alk phos 143(H) 40 - 130 Units/L [facility] ALT 417(H) 7 - 45 Units/L [facility] AST 129(H) 10 - 45 Units/L [facility] Blood 11/27/2023 9:48 PM CDT 11/27/2023 10:37 PM CDT us Jose Roberto Hernandez MD LAB BLOOD ORDERABLES Final R esult [facility] [place] [address] * (ABNORMAL) CBC with auto differential (11/27/2023 9:48 PM CDT) WBC 3.8 3.8 - 9.9 K/cumm Hgb 8.7(L) 11.9 - 15.5 g/dL [facility] Hct 26.9(L) 35.6 - 45.5 % [facility] Plt 211 150 - 400 K/cumm [facility] MPV 12.3 9.1 - 12.3 fL [facility] RBC 3.04(L) 3.90 - 5.20 M/cumm [facility] MCV 88.5 81.3 - 96.4 fL [facility] MCH 28.6 27.1 - 33.3 pg [facility] MCHC 32.3 32.3 - 35.7 g/dL [facility] RDW CV 20.6(H) 11.1 - 14.9 % [facility] RDW SD 65.7(H) 35.7 - 48.1 fL [facility] NRBC abs 0.00 0.00 - 0.01 K/cumm [facility] Blood 11/27/2023 9:48 PM CDT 11/27/2023 10:36 PM CDT Jose Roberto Hernandez MD LAB BLOOD ORDERABLES Final R esult [facility] [place] [address] * Infection Prevention Carlos auris PCR, surveillance Axilla/Groin (11/27/2023 4:06 PM CDT) Carlos auris DNA Not Detected Not Detected [facility] Comment: Interpretive Data Testing performed by [facility] Molecular Infectious Disease Laboratory using the [employer] MDX Carlos auris assay. ??This assay detects DNA from Carlos auris using Real-Time PCR. ??This assay is laboratory developed and is not cleared by the [facility] Food and Drug Administration. ??The performance characteristics have been verified by the [facility] Molecular Infectious Disease Laboratory. Interpretive data was last reviewed on 10/08/2023 Axilla/Groin 11/27/2023 4:06 PM CDT 11/27/2023 4:20 PM CDT us Diony Lawson MD LAB MICROBIOLOGY - GENERAL OR DERABLES Final Result Performing Organization Address [facility] Co de Phone Number [facility] [place] [address] [facility] * Critical Result Callback Chemistry (11/27/2023 2:41 PM CDT) Date Notified [id number] Time Notified 1607 [facility] RAMIREZ TestName Celeste HALL Called/Read Back Aysha RAMIREZ Credentials PHILIP RAMIREZ Called By glenna HALL Blood 11/27/2023 2:41 PM CDT 11/27/2023 2:55 PM CDT us Duong Choi MD LAB BLOOD ORDERABLES Fin al Result Performing Organization Address [facility] Co de Phone Number [facility] RAMIRE[facility] Department [place] [address] * (ABNORMAL) eGFR (11/27/2023 2:41 PM CDT) [...] ORDERABLES Fin al Result Performing Organization Address [facility] Co de Phone Number VAL[facility]E RAMIREZ [facility] Department [place] [address] * (ABNORMAL) Comprehensive metabolic panel (11/27/2023 2:41 PM CDT) Sodium 136 135 - 145 mmol/L Potassium, pl 4.3 3.3 - 4.9 mmol/L [facility] Comment:Hemolyzed; Potassium value may be falsely elevated by as much as 0.6-1.0 mmol/L. Suggest redraw and reanalysis. Chloride 104 97 - 110 mmol/L [facility] CO2 22 22 - 32 mmol/L [facility] Anion gap 10 2 - 15 mmol/L [facility] BUN 21 6 - 25 mg/dL [facility] Creatinine 1.23(H) 0.60 - 1.10 mg/dL [facility] Glucose 125 70 - 199 mg/dL [facility] Comment: Interpretive Data Fasting glucose >/= 126 [...] 2022. Calcium 9.3 8.5 - 10.3 mg/dL [facility] Bilirubin, total 0.9 0.1 - 1.2 mg/dL [facility] Protein, pl 6.2(L) 6.5 - 8.5 g/dL [facility] Albumin 3.3(L) 3.5 - 5.0 g/dL [facility] Alk phos 136(H) 40 - 130 Units/L [facility] ALT 424(H) 7 - 45 Units/L [facility] AST 142(H) 10 - 45 Units/L [facility] Comment:Hemolyzed; result ma y be falsely elevated Blood 11/27/2023 2:41 PM CDT 11/27/2023 2:55 PM CDT Duong Choi MD LAB BLOOD ORDERABLES Fin al Result Performing Organization Address City/[facility] Co de Phone Number [facility] Department [place] [address] * (ABNORMAL) Lipase (11/27/2023 2:41 PM CDT) Pathologist [facility] Lipase 1,154(C) 10 - 99 Units/L Blood 11/27/2023 2:41 PM CDT 11/27/2023 2:55 PM CDT us Duong Choi MD LAB BLOOD ORDERABLES Fin al Result Performing Organization Address [facility] [facility] Co de Phone Number [facility] [place] [address] * ECG 12 lead (11/27/2023 11:56 AM CDT) Ventricular Rate EKG/Min 57 BPM [facility] Atrial Rate 57 BPM [facility] CT-Interval (MSEC) 150 ms [facility] QRS-Interval (MSEC) 110 ms [facility] QT-Interval (MSEC) 448 ms [facility] QTc 436 ms [facility] P [place] 84 degrees [facility] R [place] -21 degrees [facility] T [place] 131 degrees [facility] Diagnosis Sinus bradycardia Left ventricular [...] GROSS M.D ([id number]) on 11/28/2023 2:45:50 PM [facility] 11/27/2023 11:5 6 AM CDT 11/28/2023 2:45 PM CDT us Duong Choi MD ECG ORDERABLES Final Re sult Performing Organization Address [facility] Co de Phone Number [facility] * (ABNORMAL) eGFR (11/27/2023 12:43 AM CDT) [...] MD LAB BLOOD ORDERABLES Final R esult [facility] [place] [address] * Differential, auto (11/27/2023 12:43 AM CDT) Neutrophil abs 3.6 1.5 - 6.5 K/cumm Imm gran abs 0.0 0.0 - 0.1 K/cumm [facility] Lymphocyte abs 0.9 0.8 - 3.3 K/cumm [facility] Monocyte abs 0.7 0.2 - 0.8 K/cumm [facility] Eosinophil abs 0.1 0.0 - 0.5 K/cumm [facility] Basophil abs 0.0 0.0 - 0.1 K/cumm [facility] Neutrophil pct 67.9 % [facility] Comment: Interpretive Data Percent cell count reference ranges are not reported, since discordance with absolute values may lead to misinterpretation of CBC data. Current Interpretive Data was last revised on 2017. Imm gran pct 0.6 % [facility] Comment: Interpretive Data Percent cell count reference ranges are not reported, since discordance with absolute values may lead to misinterpretation of CBC data. Current Interpretive Data was last revised on 2017. Lymphocyte pct 17.4 % [facility] Comment: Interpretive Data Percent cell count reference ranges are not reported, since discordance with absolute values may lead to misinterpretation of CBC data. Current Interpretive Data was last revised on 2017. Monocyte pct 12.6 % [facility] Comment: Interpretive Data Percent cell count reference ranges are not reported, since discordance with absolute values may lead to misinterpretation of CBC data. Current Interpretive Data was last revised on 2017. Eosinophil pct 1.1 % [facility] Comment: Interpretive Data Percent cell count reference ranges are not reported, since discordance with absolute values may lead to misinterpretation of CBC data. Current Interpretive Data was last revised on 2017. Basophil pct 0.4 % [facility] Comment: Interpretive Data Percent cell count reference ranges are not reported, since discordance with absolute values may lead to misinterpretation of CBC data. Current Interpretive Data was last revised on 2017. Blood 11/27/2023 12:4 3 AM CDT 11/27/2023 2:08 AM CDT us Jose Roberto Hernandez MD LAB BLOOD ORDERABLES Final R esult [facility] [place] [address] * Magnesium (11/27/2023 12:43 AM CDT) Magnesium 1.8 1.4 - 2.5 mg/dL Blood 11/27/2023 12:4 3 AM CDT 11/27/2023 2:07 AM CDT us Jose Roberto Hernandez MD LAB BLOOD ORDERABLES Final R esult [facility] [place] [address] * (ABNORMAL) Comprehensive metabolic panel (11/27/2023 12:43 AM CDT) Pathologist [facility] Sodium 136 135 - 145 mmol/L Potassium, pl 3.9 3.3 - 4.9 mmol/L [facility] Chloride 101 97 - 110 mmol/L [facility] CO2 22 22 - 32 mmol/L [facility] Anion gap 13 2 - 15 mmol/L [facility] BUN 16 6 - 25 mg/dL [facility] Creatinine 1.19(H) 0.60 - 1.10 mg/dL [facility] Glucose 92 70 - 199 mg/dL [facility] Comment: Interpretive Data Fasting glucose >/= 126 [...] 2022. Calcium 9.6 8.5 - 10.3 mg/dL [facility] Bilirubin, total 0.9 0.1 - 1.2 mg/dL [facility] Protein, pl 6.4(L) 6.5 - 8.5 g/dL [facility] Albumin 3.7 3.5 - 5.0 g/dL [facility] Alk phos 155(H) 40 - 130 Units/L [facility] ALT 536(H) 7 - 45 Units/L [facility] AST 184(H) 10 - 45 Units/L [facility] Blood 11/27/2023 12:4 3 AM CDT 11/27/2023 2:07 AM CDT us Jose Roberto Hernandez MD LAB BLOOD ORDERABLES Final R esult [facility] [place] [address] * (ABNORMAL) CBC with auto differential (11/27/2023 12:43 AM CDT) [facility] WBC 5.2 3.8 - 9.9 K/cumm Hgb 9.3(L) 11.9 - 15.5 g/dL [facility] Hct 28.4(L) 35.6 - 45.5 % [facility] Plt 220 150 - 400 K/cumm [facility] MPV 12.1 9.1 - 12.3 fL [facility] RBC 3.26(L) 3.90 - 5.20 M/cumm [facility] MCV 87.1 81.3 - 96.4 fL [facility] MCH 28.5 27.1 - 33.3 pg [facility] MCHC 32.7 32.3 - 35.7 g/dL [facility] RDW CV 20.2(H) 11.1 - 14.9 % [facility] RDW SD 63.6(H) 35.7 - 48.1 fL [facility] NRBC abs 0.00 0.00 - 0.01 K/cumm [facility] Blood 11/27/2023 12:4 3 AM CDT 11/27/2023 2:08 AM CDT us Jose Roberto Hernandez MD LAB BLOOD ORDERABLES Final R esult [facility] [place] [address] * FL ERCP Biliary Duct (11/26/2023 5:09 PM CDT) Narrative [facility] - 11/26/2023 5:09 PM CDT The images from this study are not interpreted by Radiology. ??Please refer to the physician's procedure / OR operative note. Wilfred Howard MD [facility] FLUOROSCOPY PROCEDURES Final Result [id number] * Upper EUS (11/26/2023 4:02 PM CDT) Anatomical Region Laterality Modality Other Narrative Procedure Note Heydi Fenton MD - 11/26/2023 4:02 PM CDT [facility] Patient Name: Tiera Lobato Procedure Date: 11/26/2023 4:02 PM Date of : 1945 Admit Type: Inpatient Age: 78 Gender: Female Attending MD: Heydi Fenton M.D. Room: [facility] ENDOSCOPY ROOM 2 Note Status: Finalized [...] consent was obtained.The Olympuscurved linear array therapeutic [id number] was introduced through the mouth, and advanced [...] Female Attending MD: Heydi Fenton M.D. Room: [facility] ENDOSCOPY ROOM 2 Note Status: Finalized Procedure: ERCP Indications: Bile duct stone seen on EUS and on CTAP, normal bilirubin Referring MD: Duong Choi, Cristian Ling M.D. Providers: Heydi Fenton M.D., Marco Antonio Gusman M.D. Medicines: Monitored Anesthesia Care, Indomethacin [address] Complications: No immediate complications. Estimated Blood Loss: [...] were discussed and informed consentwas obtained. The [id number] Duodenoscope wasintroduced through the mouth, and used to inject contrast into and used to inject contrast into the bile duct. The ERCP was accomplished without difficulty. Thepatient tolerated the procedure well. Findings: A research scientist film of the abdomen was obtained. Surgical [...] the days following this procedure please call [phone]. After hours and evenings please call [phone] speak to the GI fellow carbon paper machine operator. Please tell thefellow that Dr. Fentondid your [...] Carlos auris DNA Not Detected Not Detected [facility] Comment: Interpretive Data Testing performed by [facility] Molecular Infectious Disease Laboratory using the Diasorin Liaison MDX Carlos auris assay. ??This assay detects DNA from Carlos auris using Real-Time PCR. ??This assay is laboratory developed and is not cleared by the [place] Food and Drug Administration. ??The performance characteristics have been verified by the [facility] Molecular Infectious Disease Laboratory. Interpretive data was last reviewed on 10/08/2023 [facility] 11/25/2023 9:44 PM CDT 11/25/2023 10:29 PM CDT us Diony Lawson MD LAB MICROBIOLOGY - GENERAL OR DERABLES Final Result [facility] [place] [address] [facility] * (ABNORMAL) Ferritin (11/25/2023 9:26 PM CDT) Ferritin 1,715(H) 13 - 150 ng/mL Blood 11/25/2023 9:26 PM CDT 11/25/2023 9:39 PM CDT Jose Roberto Hernandez MD LAB BLOOD ORDERABLES Final R esult Performing Organization Address [facility] [place] [address] * Iron profile w/ IBC (11/25/2023 9:26 PM CDT) Pathologist [facility] Iron 72 35 - 145 mcg/dL TIBC See Comment 250 - 400 mcg/dL [facility] Comment:Unable to calculate Transferrin saturation See Comment 20 - 50 % [facility] Comment:Unable to calculate Blood 11/25/2023 9:26 PM CDT 11/25/2023 9:39 PM CDT Result [facility] Jose Roberto Hernandez MD LAB BLOOD ORDERABLES Final R esult Performing Organization Address City/[facility] Co de Phone Number [facility] [place] [address] * Protime-INR (11/25/2023 9:26 PM CDT) PT 11.8 10.3 - 13.7 sec INR 1.04 0.90 - 1.20 [facility] Comment: Interpretive data Oral anticoagulant therapeutic ranges: [...] ORDERABLES Final R esult Performing Organization Address [facility] Co de Phone Number [facility] [place] [address] * (ABNORMAL) eGFR (11/25/2023 7:09 PM CDT) [...] ORDERABLES Fin al Result Performing Organization Address City/[facility] Co de Phone Number [facility] [place] [address] * Differential, auto (11/25/2023 7:09 PM CDT) Neutrophil abs 2.0 1.5 - 6.5 K/cumm Imm gran abs 0.0 0.0 - 0.1 K/cumm [facility] Lymphocyte abs 0.9 0.8 - 3.3 K/cumm [facility] Monocyte abs 0.5 0.2 - 0.8 K/cumm [facility] Eosinophil abs 0.1 0.0 - 0.5 K/cumm [facility] Basophil abs 0.0 0.0 - 0.1 K/cumm [facility] Neutrophil pct 58.6 % [facility] Comment: Interpretive Data Percent cell count reference ranges are not reported, since discordance with absolute values may lead to misinterpretation of CBC data. Current Interpretive Data was last revised on 2017. Imm gran pct 0.0 % [facility] Comment: Interpretive Data Percent cell count reference ranges are not reported, since discordance with absolute values may lead to misinterpretation of CBC data. Current Interpretive Data was last revised on 2017. Lymphocyte pct 25.4 % [facility] Comment: Interpretive Data Percent cell count reference ranges are not reported, since discordance with absolute values may lead to misinterpretation of CBC data. Current Interpretive Data was last revised on 2017. Monocyte pct 13.4 % [facility] Comment: Interpretive Data Percent cell count reference ranges are not reported, since discordance with absolute values may lead to misinterpretation of CBC data. Current Interpretive Data was last revised on 2017. Eosinophil pct 2.3 % [facility] Comment: Interpretive Data Percent cell count reference ranges are not reported, since discordance with absolute values may lead to misinterpretation of CBC data. Current Interpretive Data was last revised on 2017. Basophil pct 0.3 % [facility] Comment: Interpretive Data Percent cell count reference ranges are not reported, since discordance with absolute values may lead to misinterpretation of CBC data. Current Interpretive Data was last revised on 2017. Blood 11/25/2023 7:09 PM CDT 11/25/2023 7:21 PM CDT Duong Choi MD LAB BLOOD ORDERABLES Fin al Result Performing Organization Address [facility] Co de Phone Number [facility] [place] [address] * Type and screen (11/25/2023 7:09 PM CDT) ABO Rh B Negative Cheri, indirect Negative [facility] Blood 11/25/2023 7:09 PM CDT 11/25/2023 7:35 PM CDT Narrative [facility] - 11/25/2023 8:27 PM CDT Has the patient had Daratumumab or Isatuximab in the past 6 months?->Unknown Duong Choi MD LAB BLOOD BANK TEST ORDE RABLES Final Result Performing Organization Address [facility] de Phone Number [facility] [place] [address] * (ABNORMAL) aPTT (11/25/2023 7:09 PM CDT) [...] ORDERABLES Fin al Result Performing Organization Address [facility] Co de Phone Number [facility] Department [place] [address] * Protime-INR (11/25/2023 7:09 PM CDT) PT 13.1 10.3 - 13.7 sec INR 1.15 0.90 - 1.20 [facility] Comment: Interpretive data Oral anticoagulant therapeutic ranges: Venous thromboembolism prophylaxis or treatment: 2.0-3.0 CARDIOLOGY Standard range: 2.0-3.0 High-intensity range: 2.5-3.5 Refer to indication-specific guidelines for appropriate target ranges for prosthetic heart valve replacement. Current interpretive data was last revised on 2019. Blood 11/25/2023 7:09 PM CDT 11/25/2023 7:30 PM CDT Duong Choi MD LAB BLOOD ORDERABLES Fin al Result Performing Organization Address [facility] de Phone Number [facility] Department [place] [address] * Phosphorus (11/25/2023 7:09 PM CDT) Phosphorus, pl 3.0 2.3 - 4.5 mg/dL Blood 11/25/2023 7:09 PM CDT 11/25/2023 7:22 PM CDT Result [facility] Duong Choi MD LAB BLOOD ORDERABLES Fin al Result Performing Organization Address [facility] de Phone Number [facility] Department [place] [address] * Magnesium (11/25/2023 7:09 PM CDT) Magnesium 1.8 1.4 - 2.5 mg/dL Blood 11/25/2023 7:09 PM CDT 11/25/2023 7:22 PM CDT Duong Choi MD LAB BLOOD ORDERABLES Fin al Result Performing Organization Address [facility]/ZIP Co de Phone Number [facility] Department [place] [address] * (ABNORMAL) CBC with auto differential (11/25/2023 7:09 PM CDT) [facility] WBC 3.4(L) 3.8 - 9.9 K/cumm Hgb 8.5(L) 11.9 - 15.5 g/dL [facility] Hct 26.7(L) 35.6 - 45.5 % [facility] Plt 213 150 - 400 K/cumm [facility] MPV 11.6 9.1 - 12.3 fL [facility] RBC 3.02(L) 3.90 - 5.20 M/cumm [facility] MCV 88.4 81.3 - 96.4 fL [facility] MCH 28.1 27.1 - 33.3 pg [facility] MCHC 31.8(L) 32.3 - 35.7 g/dL [facility] RDW CV 20.9(H) 11.1 - 14.9 % [facility] RDW SD 67.1(H) 35.7 - 48.1 fL [facility] NRBC abs 0.00 0.00 - 0.01 K/cumm [facility] Blood 11/25/2023 7:09 PM CDT 11/25/2023 7:21 PM CDT Duong Choi MD LAB BLOOD ORDERABLES Fin al Result [facility] Department [place] [address] * (ABNORMAL) Comprehensive metabolic panel (11/25/2023 7:09 PM CDT) [facility] Sodium 135 135 - 145 mmol/L Potassium, pl 3.9 3.3 - 4.9 mmol/L [facility] Chloride 103 97 - 110 mmol/L [facility] CO2 23 22 - 32 mmol/L [facility] Anion gap 9 2 - 15 mmol/L [facility] BUN 13 6 - 25 mg/dL [facility] Creatinine 1.22(H) 0.60 - 1.10 mg/dL [facility] Glucose 99 70 - 199 mg/dL [facility] Comment: Interpretive Data Fasting glucose >/= 126 [...] 2022. Calcium 9.8 8.5 - 10.3 mg/dL [facility] Bilirubin, total 0.8 0.1 - 1.2 mg/dL [facility] Protein, pl 6.4(L) 6.5 - 8.5 g/dL [facility] Albumin 3.5 3.5 - 5.0 g/dL [facility] Alk phos 152(H) 40 - 130 Units/L [facility] ALT 683(H) 7 - 45 Units/L [facility] AST 257(H) 10 - 45 Units/L [facility] Blood 11/25/2023 7:09 PM CDT 11/25/2023 7:22 PM CDT Duong Choi MD LAB BLOOD ORDERABLES [facility] al Result Performing Organization Address City/State/[facility] Co de Phone Number [facility] Department [place] [address] * XR Tibia Fibula Right 2 Views [...] testing Stool (11/25/2023 7:18 AM CDT) Pathologist [facility] Result Negative Negative Toxin Result Negative Negative [facility] C. diff result Negative, free toxin Negative, free toxin [facility] C. diff interp Negative for toxigenic Clostridioides (Clostridium) difficile. Analysis was performed using a glutamate dehydrogenase antigen detection assay combined with a C. difficile toxin detection assay. [facility] Stool 11/25/2023 7:18 AM CDT 11/25/2023 8:40 AM CDT Kassidy Cunningham MD LAB MICROBIOLOGY - G ENERAL ORDERABLES Final Result [facility] [place] [address] * (ABNORMAL) eGFR (11/25/2023 6:47 AM CDT) [facility] eGFR 48(L) >=60 mL/min/1. 73 m2 Comment: [...] MD LAB BLOOD ORDERABLES F inal Result [facility] [place] [address] * (ABNORMAL) Comprehensive metabolic panel (11/25/2023 6:47 AM CDT) Sodium 135 135 - 145 mmol/L Potassium, pl 4.0 3.3 - 4.9 mmol/L [facility] Chloride 102 97 - 110 mmol/L [facility] CO2 20(L) 22 - 32 mmol/L [facility] Anion gap 13 2 - 15 mmol/L [facility] BUN 11 6 - 25 mg/dL [facility] Creatinine 1.18(H) 0.60 - 1.10 mg/dL [facility] Glucose 84 70 - 199 mg/dL [facility] Comment: Interpretive Data Fasting glucose >/= 126 [...] 2022. Calcium 9.8 8.5 - 10.3 mg/dL [facility] Bilirubin, total 0.9 0.1 - 1.2 mg/dL [facility] Protein, pl 6.6 6.5 - 8.5 g/dL [facility] Albumin 3.6 3.5 - 5.0 g/dL [facility] Alk phos 166(H) 40 - 130 Units/L [facility] ALT 796(H) 7 - 45 Units/L [facility] AST 364(H) 10 - 45 Units/L [facility] Blood 11/25/2023 6:47 AM CDT 11/25/2023 6:58 AM CDT Seamus Pimentel Jr., MD LAB BLOOD ORDERABLES F inal Result [facility] [place] [address] * (ABNORMAL) CBC without differential (11/25/2023 6:47 AM CDT) Pathologist [facility] WBC 3.8 3.8 - 9.9 K/cumm Hgb 8.4(L) 11.9 - 15.5 g/dL [facility] Hct 26.2(L) 35.6 - 45.5 % [facility] Plt 198 150 - 400 K/cumm [facility] MPV 10.9 9.1 - 12.3 fL [facility] RBC 3.00(L) 3.90 - 5.20 M/cumm [facility] MCV 87.3 81.3 - 96.4 fL [facility] MCH 28.0 27.1 - 33.3 pg [facility] MCHC 32.1(L) 32.3 - 35.7 g/dL [facility] RDW CV 21.0(H) 11.1 - 14.9 % [facility] RDW SD 65.5(H) 35.7 - 48.1 fL [facility] NRBC abs 0.00 0.00 - 0.01 K/cumm [facility] Blood 11/25/2023 6:47 AM CDT 11/25/2023 6:58 AM CDT us Seamus Pimentel Jr., MD LAB BLOOD ORDERABLES F inal Result Performing Organization Address [facility] Co de Phone Number [facility] [place] [address] * (ABNORMAL) Urinalysis, microscopic only (11/24/2023 3:33 PM CDT) WBC, ur 0-5 0 - 5 /HPF RBC, ur 0-2 0 - 2 /HPF [facility] Epithelial cells, squamous, ur 1-5 0 - 5 /HPF [facility] Epithelial cells, transitional, ur 1-5 0 - 0 /HPF [facility] Bacteria, ur 1+(A) [facility] Culture Reflex Comment Reflex conditions for urine culture (WBC >10) not met. [facility] Urine 11/24/2023 3:33 PM CDT 11/24/2023 4:06 PM CDT us Kassidy Cunningham MD LAB URINE ORDERABLES Final Result Performing Organization Address [facility] Co de Phone Number [facility] [place], [place] [id number] * (ABNORMAL) Urinalysis reflex to microscopic and culture Urine (11/24/2023 3:33 PM CDT) Color, ur Straw Yellow Clarity, ur Clear Clear [facility] Specific gravity, ur 1.015 1.003 - 1.030 [facility] pH, urine 6.5 [facility] Comment: Interpretive Data ? Urine pH is affected by diet, medications, systemic acid-base disturbances, and renal tubular function. ??pH may affect urinary stone formation. ??For example, urine pH below 6.0 may help reduce the tendency for calcium phosphate stones and pH greater than 6.0 may reduce the tendency for uric acid stone formation. Source: [facility] [place] Current Interpretive Data was last revised on 2017 Protein, ur ql Negative Negative [facility] Glucose, ur ql Negative Negative [facility] Ketones, ur Negative Negative [facility] Bilirubin, ur Negative Negative [facility] Blood, ur Negative Negative [facility] Urobilinogen, ur <2.0 <2.0 mg/dL [facility] Nitrite, ur Negative Negative [facility] Leukocyte esterase, ur 2+(A) Negative [facility] UA reflex comment Reflex to microscopic UA will be performed. [facility] Urine 11/24/2023 3:33 PM CDT 11/24/2023 4:06 PM CDT Kassidy Cunningham MD LAB MICROBIOLOGY - G ENERAL ORDERABLES Final Result [facility] [place] [address] * CT Abdomen Pelvis W Contrast (11/24/2023 [...] Electronically signed by: Benjamín Villeda M.D. Result [facility] Kassidy Cunningham MD IMG CT PROCEDURES Fi nal Result * Hepatitis panel, acute Blood (11/24/2023 12:01 PM CDT) [facility] Hep A IgM Nonreactive Nonreactive Hep B core IgM Nonreactive Nonreactive [facility] Hep C Ab Nonreactive Nonreactive [facility] Comment:Antibodies to HCV no t detected. Does NOT exclude the possibility of recent exposure to HCV. Current interpretive data was last revised on 22 HepBsAg Nonreactive Nonreactive [facility] Blood 11/24/2023 12:0 1 PM CDT 11/24/2023 12:20 PM CDT Result [facility] Kassidy Cunningham MD LAB MICROBIOLOGY - G ENERAL ORDERABLES Final Result Performing Organization Address City/[facility]/ZIP Co de Phone Number [facility] [place] [address] * Troponin I high-sensitivity 2-hour (11/24/2023 12:01 PM CDT) [facility] Trop I hs 16 <=17 ng/L Comment: Interpretive Data For further hscTnI resources including the diagnostic algorithm and an aid in interpretation, copy and paste this link: [email or web address].testcatalog.org/show/[email or web address] Current Interpretive Data last revised 2019. Trop I hs delta 1 ng/L [facility] Trop I hs interp Insignificant [facility] Blood 11/24/2023 12:0 1 PM CDT 11/24/2023 12:20 PM CDT Elisha Jose MD LAB BLOOD ORDERABLES Final Result Performing Organization Address City/[facility]/ZIP Co de Phone Number [facility] [place] [address] * POCUS Soft Tissue of the Upper [...] Jose MD LAB BLOOD ORDERABLES Final Result [facility] [place] [address] * (ABNORMAL) Differential, auto (11/24/2023 9:49 AM CDT) Neutrophil abs 1.9 1.5 - 6.5 K/cumm Imm gran abs 0.0 0.0 - 0.1 K/cumm [facility] Lymphocyte abs 0.5(L) 0.8 - 3.3 K/cumm [facility] Monocyte abs 0.5 0.2 - 0.8 K/cumm [facility] Eosinophil abs 0.3 0.0 - 0.5 K/cumm [facility] Basophil abs 0.0 0.0 - 0.1 K/cumm [facility] Neutrophil pct 58.6 % [facility] Comment: Interpretive Data Percent cell count reference ranges are not reported, since discordance with absolute values may lead to misinterpretation of CBC data. Current Interpretive Data was last revised on 2017. Imm gran pct 0.3 % [facility] Comment: Interpretive Data Percent cell count reference ranges are not reported, since discordance with absolute values may lead to misinterpretation of CBC data. Current Interpretive Data was last revised on 2017. Lymphocyte pct 16.4 % [facility] Comment: Interpretive Data Percent cell count reference ranges are not reported, since discordance with absolute values may lead to misinterpretation of CBC data. Current Interpretive Data was last revised on 2017. Monocyte pct 16.7 % [facility] Comment: Interpretive Data Percent cell count reference ranges are not reported, since discordance with absolute values may lead to misinterpretation of CBC data. Current Interpretive Data was last revised on 2017. Eosinophil pct 7.7 % [facility] Comment: Interpretive Data Percent cell count reference ranges are not reported, since discordance with absolute values may lead to misinterpretation of CBC data. Current Interpretive Data was last revised on 2017. Basophil pct 0.3 % [facility] Comment: Interpretive Data Percent cell count reference ranges are not reported, since discordance with absolute values may lead to misinterpretation of CBC data. Current Interpretive Data was last revised on 2017. Blood 11/24/2023 9:49 AM CDT 11/24/2023 10:02 AM CDT Elisha Jose MD LAB BLOOD ORDERABLES Final Result Performing Organization Address City/[facility]/ZIP Co de Phone Number [facility] [place] [address] * Troponin I high-sensitivity series (baseline, 2hr, [...] BLOOD ORDERABLES Final Result Performing Organization Address City/[facility]/ZIP Co de Phone Number [facility] Department [place] [address] * Lipase (11/24/2023 9:49 AM CDT) Lipase 31 10 - 99 Units/L Blood (Blood, Venous) 11/24/2023 9:49 AM CDT 11/24/2023 10:02 AM CDT Elisha Jose MD LAB BLOOD ORDERABLES Final Result [facility] [place] [address] * (ABNORMAL) Comprehensive metabolic panel (11/24/2023 9:49 AM CDT) Sodium 135 135 - 145 mmol/L Potassium, pl 4.0 3.3 - 4.9 mmol/L [facility] Chloride 103 97 - 110 mmol/L [facility] CO2 23 22 - 32 mmol/L [facility] Anion gap 9 2 - 15 mmol/L [facility] BUN 12 6 - 25 mg/dL [facility] Creatinine 1.29(H) 0.60 - 1.10 mg/dL [facility] Glucose 106 70 - 199 mg/dL [facility] Comment: Interpretive Data Fasting glucose >/= 126 [...] 2022. Calcium 9.7 8.5 - 10.3 mg/dL [facility] Bilirubin, total 0.9 0.1 - 1.2 mg/dL [facility] Protein, pl 6.9 6.5 - 8.5 g/dL [facility] Albumin 4.0 3.5 - 5.0 g/dL [facility] Alk phos 185(H) 40 - 130 Units/L [facility] ALT 1,087(H) 7 - 45 Units/L [facility] AST 673(H) 10 - 45 Units/L [facility] Blood 11/24/2023 9:49 AM CDT 11/24/2023 10:02 AM CDT us Elisha Jose MD LAB BLOOD ORDERABLES Final Result [facility] [place] [address] * (ABNORMAL) CBC with auto differential (11/24/2023 9:49 AM CDT) WBC 3.2(L) 3.8 - 9.9 K/cumm Hgb 8.8(L) 11.9 - 15.5 g/dL [facility] Hct 27.6(L) 35.6 - 45.5 % [facility] Plt 191 150 - 400 K/cumm [facility] MPV 11.5 9.1 - 12.3 fL [facility] RBC 3.14(L) 3.90 - 5.20 M/cumm [facility] MCV 87.9 81.3 - 96.4 fL [facility] MCH 28.0 27.1 - 33.3 pg [facility] MCHC 31.9(L) 32.3 - 35.7 g/dL [facility] RDW CV 20.8(H) 11.1 - 14.9 % [facility] RDW SD 65.2(H) 35.7 - 48.1 fL [facility] NRBC abs 0.00 0.00 - 0.01 K/cumm [facility] Blood (Blood, Venous) 11/24/2023 9:49 AM CDT 11/24/2023 10:02 AM CDT Elisha Jose MD LAB BLOOD ORDERABLES Final Result [facility] [place] [address] documented in this encounter Visit Diagnoses Diagnosis [...] Given 12/02/2023 10:42 PM CDT 650 mg fbaftuvgduynf-xwcpkdq-vqyhrzfm (EXCEDRIN MIGRAINE) 250-250-65 mg per tablet 1 [...] 2015, For 1 dose, Indications: hypomagnesemiaIndications:hypoma gnesemia [facility] 11/27/2023 9:23 PM CDT 2 g magnesium sulfate 2 g/50 mL in water (premix) 2 g 2 g, intravenous, Administer over 60 Minutes, Once, On Fri11/28/23 at 2145, For 1 dose, Indications: hypomagnesemiaIndications:hypoma gnesemia [facility] 11/28/2023 9:39 PM CDT 2 g metoprolol [...] 1826 (Given - Provider: Yvonne Corrigan RN) rzajsedmwfdyy-xmwayvo-kab feine (EXCEDRIN MIGRAINE) 250-250-65 mg per tablet [...] documented as of this encounter Care Teams Dishwasher Preparer Relationship Specialty Start Date End Date Cristian Ling MD [address] [place] [address] PCP - General 10/16/16 documented as of this encounter
--- OUTSIDE RECORDS SUMMARY | 2024-06-12 04:29 | XMS_ITS | Encounter Summary ---
Author Organization [facility] Address [address] [place] [address] Phone Care Team Providers Care Auto Refinisher Name Role Phone Cristian Ling MD Primary Care Prov ider Reason for Referral * Consultation (Routine) - Pending Review Specialty Diagnoses / Procedures Referred By Contdeepali t Referred To Contact Otolaryngology Diagnoses Vertigo Saim Stafford MD [address] [address] Phone: tel: fax: [facility] (All Locations) Referral ID Status Reason Start Date Expiration Date Visits Requested Visits Authorized [id number] Pending Review Specialty Services Required 11/13/2023 12/12/2024 1 1 Question Answer Please select the performing region: [facility] (All Locations) [[id number]] # of visits: 1 Encounter Details Date Type Department Care Team (Late st Contact Info) Description 11/12/2023 Telephone [facility] Cardiology [address] [facility] [address] [place] [address] [place] [address] Sami Stafford MD [address] 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
--- OUTSIDE RECORDS SUMMARY | 2024-06-12 04:29 | XMS_ITS | Encounter Summary ---
Author Organization [facility] Address [address] [place] [address] Phone Care Team Providers Care Lug Breaker And Wire Puller Name Role Phone Cristian Ling MD Primary Care Prov ider Encounter Details Date Type Department Care Team (Late st Contact Info) Description 10/16/2023 Telephone [facility] Cardiology [address] [facility] 8th [place] [address] [place] [address] Sami Stafford MD [address] [facility] [address] [place], [place] [id number] Social History Tobacco Use Types Packs/Day Years [...] on file 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
--- OUTSIDE RECORDS SUMMARY | 2024-06-12 04:29 | XMS_ITS | Encounter Summary ---
Author Organization [facility] Address [address] [place] [address] Care Team Providers Care Tribunal Member Name Role Phone Cristian Ling MD Primary Care Prov ider Reason for Visit * Auth/Cert (Routine) Specialty Diagnoses / Procedures Referred By Contac t Referred To Contact Diagnoses Acute hepatitis Procedures NA Referral ID Status Reason Start Date Expiration Date Visits Re quested Visits Authorized [id number] 1 1 Encounter Details Date Type Department Care Team (Late st Contact Info) Description 11/26/2023 3:59 PM CDT Anesthesia Event [facility] [place] [address] [facility] [address] [place] [address] Gio Kahn MD [address] [place] [address] Itz Salvador CRNA [address] [place] [address] Anesthesia Record Procedure Summary Procedure Name Responsible [...] Recorded In the past 12 months has [employer], [employer], or water [employer] threatened to shut off services in your [...] How often do you attend baptism or lutheran serv ices? Never 11/25/2023 Do you belong [...] staff should administer the PHQ-9) 0 09/28/2020 [facility] - Occupational Stress Questionnaire Answer [...] living in a intermediate (including now)? No 11/25/2023 Personal Safety Answer Date Recorded Getting School Help Needed Not on file 08/30 Comments No Sex and Gender Information Value Date Recorded Sex Assigned at Not on file Legal Sex Female 7:12 AM SPINE SPECIALIST Gender Identity Female 02/07/2021 4:33 PM CDT Sexual Orientation Straight 02/07/2021 4: 33 PM CDT documented as of this encounter OR Notes * Anesthesia Postprocedure Evaluation - Gio Kahn MD - 11/26/2023 5:00 PM CDT Patient: Tiera Lobato Procedure Summary Date: 11/26/23 Room / Location: [facility] ROOM 2 / [facility] Anesthesia Start: 1559 Anesthesia Stop: Procedures: [...] anemia, unspecified 10/05/2023 NSVT (nonsustained ventricular tachycardia) ([facility]) 08/20/2023 A-fib (CMS/HCC) ([facility]) 02/17/2023 Atrial fibrillation (CMS/HCC) ([facility]) 01/13/2023 Apical variant hypertrophic cardiomyopathy ([facility]) 12/05/2022 Paroxysmal atrial fibrillation (CMS/HCC) ([facility]) 12/05/2022 Right hip pain 11/22/2021 Other osteoporosis without current pathological fracture 03/07/2021 Lumbar stenosis with neurogenic claudication 09/29/2020 History of [place] (myocardial infarction) 12/10/2017 Primary hypertension 11/06/2012 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 09/23/2012 Hx of CABG 09/23/2012 Past Medical History: Diagnosis Date Acid reflux Heart murmur High cholesterol History of blood clots 1960s in leg as teenager - had phlebitis History of [place] (myocardial infarction) 2012 History of vertebral fracture 2017 HTN (hypertension) IBS (irritable bowel syndrome) Vertigo Past Surgical History: Procedure Laterality Date CARDIOVERSION 03/2023 COLON SURGERY 1992 Repair burst colon CORONARY ARTERY BYPASS GRAFT 2012 Double by-pass - [facility] FLUORO GUIDED INJECTION HIP RIGHT Right 05/16/2022 FLUORO GUIDED INJECTION HIP RIGHT Right 08/15/2022 FLUORO GUIDED INJECTION HIP RIGHT Right 12/10/2022 FLUORO GUIDED INJECTION HIP RIGHT Right 05/13/[address] James ([place], [place]) TOTAL KNEE ARTHROPLASTY Right 2018 OB [...] Medication protocol when under care of a CASINO INVESTIGATOR Planned anesthesia: MAC Induction: Induction: intravenous. Postoperative Plan: No plan for postoperative opioid use. No postoperative mechanical ventilation intended. Patient's planned disposition post procedure is Outpatient. Informed Consent: Discussed plan with CASINO INVESTIGATOR. Anesthesia plan and risks discussed with patient. [...] mL/hr documented in this encounter Care Teams Tribunal Member Relationship Specialty Start Date End Date Cristian Ling MD [address] [place] [address] PCP - General 10/16/16 documented as of this encounter
--- OUTSIDE RECORDS SUMMARY | 2024-06-12 04:29 | XMS_ITS | Encounter Summary ---
Author Organization [facility] Healthcare Address [address] [place] [address] Care Team Providers Care Business Systems Administrator Name Role Phone Cristian Ling MD Primary Care Prov ider Belinda Quigley ADULT BASIC EDUCATION TEACHER Unavailable [phone] Reason for Visit * Reason Comments Diarrhea Encounter Details Date Type Department Care Team (Late st Contact Info) Description 12/07/2023 9:59 AM CDT - 12/07/2023 6:45 PM CDT Emergency [facility] Emergency Department [address] [place] [address] Pio Barreto MD [address] [place] [address] Sharon Rooney MD [address] [place] [address] Sheila Willingham MD [address] [place] [address] Diarrhea, unspecified type (Primary Dx); Dehydration; CLAUDIA [...] How often do you attend mosque or moravian serv ices? Never 12/04/2023 Do [...] staff should administer the PHQ-9) 0 09/28/2020 [facility] [place] of Occupat ional [facility] - Occupational Stress Questionnaire Answer [...] the past 12 m [facility], were you homeless or living [...] on file Legal Sex Female 7:12 AM HOST HOSTESS Gender Identity Female 02/07/2021 4:33 PM CDT [...] history of AFib. Please follow-up with your fluxer on an outpatient basis for this. Regarding [...] Chronic kidney disease (CKD), stage III (moderate) ([facility]) 11/29/2023 Pancreatitis 11/29/2023 Acute hepatitis 11/24/2023 Choledocholithiasis 11/24/2023 Iron deficiency anemia, unspecified 10/05/2023 NSVT (nonsustained ventricular tachycardia) ([facility]) 08/20/2023 A-fib ([facility]) ([facility]) 02/17/2023 Atrial fibrillation ([facility]) ([facility]) 01/13/2023 Apical variant hypertrophic cardiomyopathy ([facility]) 12/05/2022 Paroxysmal atrial fibrillation ([facility]) ([facility]) 12/05/2022 Right hip pain 11/22/2021 Other osteoporosis without current pathological fracture 03/07/2021 Lumbar stenosis with neurogenic claudication 09/29/2020 History of AK (myocardial infarction) 12/10/2017 Primary hypertension 11/06/2012 Coronary artery disease involving [place] coronary artery of [place] heart without angina pectoris 09/23/2012 Hx of CABG 09/23/2012 Past Medical History: Diagnosis Date Acid reflux Heart murmur High cholesterol History of blood clots 1960s in leg as teenager - had phlebitis History of AK (myocardial infarction) 2012 History of vertebral fracture 2017 HTN (hypertension) IBS (irritable bowel syndrome) Vertigo Past Surgical History: Procedure Laterality Date CARDIOVERSION 03/2023 COLON SURGERY 1992 Repair burst colon CORONARY ARTERY BYPASS GRAFT 2012 Double by-pass - [facility] FLUORO GUIDED INJECTION HIP RIGHT Right 05/16/2022 FLUORO GUIDED INJECTION HIP RIGHT Right 08/15/2022 FLUORO GUIDED INJECTION HIP RIGHT Right 12/10/2022 FLUORO GUIDED INJECTION HIP RIGHT Right 05/13/[address] James ([place], [place]) TOTAL KNEE ARTHROPLASTY Right 2017 Family [...] RN - 12/07/2023 9:59 AM CDT Bed: [facility] Expected date: Expected time: Means of arrival: [...] Influenza B RNA Not Detected Not Detected [facility] RSV RNA Not Detected Not Detected [facility] COVID-19 RNA Not Detected Not Detected [facility] Coronavirus 229E RNA Not Detected Not Detected [facility] Coronavirus HKU1 RNA Not Detected Not Detected [facility] Coronavirus NL63 RNA Not Detected Not Detected [facility] Coronavirus OC43 RNA Not Detected Not Detected [facility] Adenovirus DNA Not Detected Not Detected [facility] Metapneumovirus RNA Not Detected Not Detected [facility] Rhinovirus/Enterov irus RNA Not Detected Not Detected [facility] Parainfluenza 1 RNA Not Detected Not Detected [facility] Parainfluenza 2 RNA Not Detected Not Detected [facility] Parainfluenza 3 RNA Not Detected Not Detected [facility] Parainfluenza 4 RNA Not Detected Not Detected [facility] B. pertussis DNA Not Detected Not Detected [facility] B. parapertussis DNA Not Detected Not Detected [facility] C. pneumoniae DNA Not Detected Not Detected [facility] M. pneumoniae DNA Not Detected Not Detected [facility] Nasopharyngeal 12/07/2023 4: 41 PM CDT 12/07/2023 4:57 PM CDT Narrative [facility] - 12/07/2023 5:53 PM CDT Is the Patient experiencing symptoms consistent with COVID?->Unknown Surveillance testing for transplant patient?->No ??Interpretive Data The eduplanet KK FilmArray Respiratory Panel (RP2.1) assay is a [...] assay has FDA clearance for testing of INWEAVER swabs. ??The performance of additional specimen types has been assessed by the performing laboratory. ??The performance characteristics of this assay have been determined by [facility] Infectious Disease [facility]. Current interpretive data was last revised on 22. Jayson Caceres MD LAB MICROBIOLOGY - GENERA L ORDERABLES Final Result [facility] [address] Department [place] [address] * (ABNORMAL) Troponin I high-sensitivity 4-hour (12/07/2023 2:56 PM CDT) Trop I hs 46(H) <=17 ng/L Comment: Interpretive Data For further hscTnI resources including the diagnostic algorithm and an aid in interpretation, copy and paste this link: https://bjhlab.testcatalog.org/show/hsTrop-1 Current Interpretive Data last revised 2019. Trop I hs delta -1 ng/L [facility] Trop I hs interp Insignificant CERNER BJ H Blood 12/07/2023 2:56 PM CDT 12/07/2023 3:09 PM CDT Jayson Caceres MD LAB BLOOD ORDERABLES Caitlyn l Result Performing Organization Address [facility] de Phone Number [facility] [place] [address] * (ABNORMAL) Troponin I high-sensitivity 2-hour (12/07/2023 1:45 PM CDT) Trop I hs 51(H) <=17 ng/L Comment: Interpretive Data For further hscTnI resources including the diagnostic algorithm and an aid in interpretation, copy and paste this link: https://bjhlab.testcatalog.org/show/hsTrop-1 Current Interpretive Data last revised 2019. Trop I hs delta 4 ng/L [facility] Trop I hs interp Insignificant CERNER BJ H Blood 12/07/2023 1:45 PM CDT 12/07/2023 1:56 PM CDT Result [facility] Jayson Caceres MD LAB BLOOD ORDERABLES Caitlyn l Result Performing Organization Address [facility] [place] [address] * ECG 12-LEAD (12/07/2023 11:07 AM CDT) Narrative [facility] [place] 12/07/2023 11:07 AM CDT Jayson Caceres [...] MD LAB BLOOD ORDERABLES Caitlyn dominguez Result [facility] [address] [place] [address] * (ABNORMAL) Differential, auto (12/07/2023 10:54 AM CDT) Neutrophil abs 6.4 1.5 - 6.5 K/cumm Imm gran abs 0.1 0.0 - 0.1 K/cumm [facility] Lymphocyte abs 1.2 0.8 - 3.3 K/cumm [facility] Monocyte abs 0.9(H) 0.2 - 0.8 K/cumm [facility] Eosinophil abs 0.0 0.0 - 0.5 K/cumm [facility] Basophil abs 0.1 0.0 - 0.1 K/cumm [facility] Neutrophil pct 74.4 % [facility] Comment: Interpretive Data Percent cell count reference ranges are not reported, since discordance with absolute values may lead to misinterpretation of CBC data. Current Interpretive Data was last revised on 2017. Imm gran pct 0.6 % [facility] Comment: Interpretive Data Percent cell count reference ranges are not reported, since discordance with absolute values may lead to misinterpretation of CBC data. Current Interpretive Data was last revised on 2017. Lymphocyte pct 13.7 % [facility] Comment: Interpretive Data Percent cell count reference ranges are not reported, since discordance with absolute values may lead to misinterpretation of CBC data. Current Interpretive Data was last revised on 2017. Monocyte pct 10.2 % [facility] Comment: Interpretive Data Percent cell count reference ranges are not reported, since discordance with absolute values may lead to misinterpretation of CBC data. Current Interpretive Data was last revised on 2017. Eosinophil pct 0.2 % [facility] Comment: Interpretive Data Percent cell count reference ranges are not reported, since discordance with absolute values may lead to misinterpretation of CBC data. Current Interpretive Data was last revised on 2017. Basophil pct 0.9 % [facility] Comment: Interpretive Data Percent cell count reference ranges are not reported, since discordance with absolute values may lead to misinterpretation of CBC data. Current Interpretive Data was last revised on 2017. Blood 12/07/2023 10:5 4 AM CDT 12/07/2023 11:15 AM CDT Jayson Caceres MD LAB BLOOD ORDERABLES Caitlyn l Result Performing Organization Address City/[facility] Co de Phone Number [facility] [place] [address] * (ABNORMAL) Troponin I high-sensitivity series (baseline, [...] ORDERABLES Caitlyn l Result Performing Organization Address City/[facility]/ZIP Co de Phone Number [facility] Department [place] [address] * Lipase (12/07/2023 10:54 AM CDT) Lipase 77 10 - 99 Units/L Blood 12/07/2023 10:5 4 AM CDT 12/07/2023 11:15 AM CDT Result [facility] Jayson Caceres MD LAB BLOOD ORDERABLES Caitlyn l Result Performing Organization Address [facility] de Phone Number [facility] Department [place] [address] * (ABNORMAL) Hepatic function panel (12/07/2023 10:54 AM CDT) [facility] Bilirubin, total 0.8 0.1 - 1.2 mg/dL Bilirubin, direct 0.2 0.1 - 0.3 mg/dL [facility] Protein, pl 7.4 6.5 - 8.5 g/dL [facility] Albumin 3.9 3.5 - 5.0 g/dL [facility] Alk phos 118 40 - 130 Units/L [facility] ALT 111(H) 7 - 45 Units/L [facility] AST 77(H) 10 - 45 Units/L [facility] Comment:Hemolyzed; result ma y be falsely elevated Blood 12/07/2023 10:5 4 AM CDT 12/07/2023 11:15 AM CDT Jayson Caceres MD LAB BLOOD ORDERABLES Caitlyn l Result Performing Organization Address [facility] de Phone Number [facility] Department [place] [address] * (ABNORMAL) Basic metabolic panel (12/07/2023 10:54 AM CDT) [facility] Sodium 141 135 - 145 mmol/L Potassium, pl 4.1 3.3 - 4.9 mmol/L [facility] Comment:Hemolyzed; Potassium value may be falsely elevated by as much as 0.3-0.5 mmol/L. Suggest redraw and reanalysis. Chloride 101 97 - 110 mmol/L [facility] CO2 22 22 - 32 mmol/L [facility] Anion gap 18(H) 2 - 15 mmol/L [facility] BUN 15 6 - 25 mg/dL [facility] Creatinine 1.42(H) 0.60 - 1.10 mg/dL [facility] Glucose 111 70 - 199 mg/dL [facility] Comment: Interpretive Data Fasting glucose [...] 2022. Calcium 10.8(H) 8.5 - 10.3 mg/dL [facility] Blood 12/07/2023 10:5 4 AM CDT 12/07/2023 11:15 AM CDT Jayson Caceres MD LAB BLOOD ORDERABLES Caitlyn dominguez Result [facility] [address] Department [place] [address] * (ABNORMAL) CBC with auto differential (12/07/2023 10:54 AM CDT) [facility] WBC 8.6 3.8 - 9.9 K/cumm Hgb 12.1 11.9 - 15.5 g/dL [facility] Hct 39.4 35.6 - 45.5 % [facility] Plt 281 150 - 400 K/cumm [facility] MPV 13.6(H) 9.1 - 12.3 fL [facility] RBC 4.26 3.90 - 5.20 M/cumm [facility] MCV 92.5 81.3 - 96.4 fL [facility] MCH 28.4 27.1 - 33.3 pg [facility] MCHC 30.7(L) 32.3 - 35.7 g/dL [facility] RDW CV 22.3(H) 11.1 - 14.9 % [facility] RDW SD 74.2(H) 35.7 - 48.1 fL [facility] NRBC abs 0.00 0.00 - 0.01 K/cumm [facility] Blood 12/07/2023 10:5 4 AM CDT 12/07/2023 11:15 AM CDT us Jayson Caceres MD LAB BLOOD ORDERABLES Caitlyn dominguez Result [facility] [address] Department [place] [address] documented in this encounter Visit Diagnoses Diagnosis [...] documented as of this encounter Care Teams Business Systems Administrator Relationship Specialty Start Date End Date Cristian Ling MD [address] [place] [address] PCP - General 10/16/16 Belinda Quigley, SERG [address] [facility] ([facility] Mailstop [id number] [place] [address] [facility] Outpatient Program Medical Director 12/04/23 12/30/23 documented as of this encounter
--- OUTSIDE RECORDS SUMMARY | 2024-06-12 04:29 | XMS_ITS | Encounter Summary ---
Author Organization [facility] Address [address] [place] [address] Phone Care Team Providers Care Tractor Drill Operator Name Role Phone Cristian Ling MD Primary Care Prov ider Belinda Quigley PHYSICIAN/OPHTHALMOLOGIST Unavailable Reason for Visit * Reason Onset Date Comments holding apixaban 12/05/2023 Encounter Details Date Type Department Care Team (Late st Contact Info) Description 12/05/2023 Telephone [facility] Cardiology [address] [facility] Advanced Medicine 8th [place] [address] [place] [address] Sami Stafford MD [address] [address] holding apixaban Social History Tobacco Use Types Packs/Day Years Used Date Smoking Tobacco: Never Passive Smoke Exposure: Current Smokeless Tobacco: Never [facility] Utilities Answer Date Recorded In the past [...] How often do you attend tenriism or samaritan serv ices? Never 12/04/2023 Do [...] PHQ-9) 0 09/28/2020 [facility] of Occupat ional Health - Occupational Stress [...] any time in the past 12 m [facility], were you homeless or living [...] file Legal Sex Female 7:12 AM COMPUTER TYPESETTER KEYLINER Gender Identity Female 02/07/2021 4:33 PM CDT [...] have Dr. Stafford review/sign. Fax back to [facility] [phone] documented in this encounter Plan of Treatment Not on file documented as of this encounter Visit Diagnoses Not on filedocumented in this encounter Additional Health Concerns Infection Onset Date Last Indicated Resolved Time COVID: Suspected 12/07/2023 12/07/2023 12/07/2023 5:54 PM CDT documented as of this encounter Care Teams Tractor Drill Operator Relationship Specialty Start Date End Date Cristian Ling MD [address] [place] [address] PCP - General 10/16/16 Belinda Quigley, SERG [address] [facility] ([facility] Mailstop [phone] [place] [address] [facility] Out[facility] Caretaker 12/04/23 12/30/23 documented as of this encounter
--- OUTSIDE RECORDS SUMMARY | 2024-06-12 04:29 | XMS_ITS | Encounter Summary ---
Author Organization [facility] Address [address] [place] [address] Phone Care Team Providers Care Mortgage Protection Specialist Name Role Phone Cristian Ling MD Primary Care Prov ider Encounter Details Date Type Department Care Team (Late st Contact Info) Description 10/17/2023 Telephone [facility] Cardiology [address] [facility] Advanced [facility] 8th [place] [address] [place] [address] Sami Stafford MD [address] [facility] [address] [place], [place] [id number] Social History Tobacco Use Types Packs/Day Years [...] on file Legal Sex Female 7:12 AM MEDICAID NURSE Gender Identity Female 02/07/2021 4:33 PM [...] to send over the prescription info to [facility] for the nurses to see the change in the medication so they will change it for pt. Thank you. documented in this encounter Plan of Treatment Not on file documented as of this encounter Visit Diagnoses Not on filedocumented in this encounter Care Teams Mortgage Protection Specialist Relationship Specialty Start Date End Date Cristian Ling MD [address] [place] [address] PCP - General 10/16/16 documented as of this encounter
--- OUTSIDE RECORDS SUMMARY | 2024-06-12 04:30 | XMS_ITS | Encounter Summary ---
Author Organization [facility] Address [address] [place] [address] Phone Care Team Providers Care Cryptologic Supervisor Name Role Phone Cristian Ling MD Primary Care Prov ider Encounter Details Date Type Department Care Team (Late st Contact Info) Description 09/26/2023 Telephone [facility] Cardiology [address] [facility] Advanced [facility] 8th [place] [address] [place] [address] Sami Stafford MD [address] [facility] [address] [place], [place] [id number] Social History Tobacco Use Types Packs/Day Years [...] on file Legal Sex Female 7:12 AM DEVELOPMENT GEOLOGIST Gender Identity Female 02/07/2021 4:33 PM CDT [...] returned call and said she lives at [facility] in [facility]. Will fax midodrine rx. * Telephone Encounter - Sheila Pacheco RN - 10/20/2023 9:19 AM CDT Called [facility] who reports they do not have [...] she is taking. * Telephone Encounter - Shiela Pacheco RN - 10/17/2023 10:43 AM CDT Rivera Pt msg to [facility]. Pt would like for you to send over the prescription info to [facility] for the nurses to see the [...] documented as of this encounter Care Teams Cryptologic Supervisor Relationship Specialty Start Date End Date Cristian Ling MD [address] [place] [address] PCP - General 10/16/16 documented as of this encounter
--- OUTSIDE RECORDS SUMMARY | 2024-06-12 04:30 | XMS_ITS | Encounter Summary ---
Author Organization [facility] Address [address] [place] [address] Phone Care Team Providers Care Senior It Assistant Name Role Phone Cristian Ling MD Primary Care Prov ider Reason for Visit * Reason Onset Date Comments iron infusion 10/06/2023 Encounter Details Date Type Department Care Team (Late st Contact Info) Description 10/06/2023 Telephone [facility] Oncology [address] [facility] [address] [place] [address] Jody Foley iron infusion Social [...] on file Legal Sex Female 7:12 AM KNOCKOUT MAN Gender Identity Female 02/07/2021 4:33 PM [...] on filedocumented in this encounter Care Teams Senior It Assistant Relationship Specialty Start Date End Date Cristian Ling MD [address] [place] [address] PCP - General 10/16/16 documented as of this encounter
--- OUTSIDE RECORDS SUMMARY | 2024-06-12 04:30 | XMS_ITS | Encounter Summary ---
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 Creatinine is [...] stable, hgb 8.4. - lipids are acceptable. STOCK AUCTIONEER documented in this encounter Plan of Treatment Not on file documented as of this encounter Procedures Procedure Name Priority Date/Time Associated Diagnosis Comments EGFR Routine 08/20/2023 10:43 AM LIVESTOCK AUCTIONEER Chronic heart failure with preserved ejection fraction (CMS/HCC) (HCC) Paroxysmal atrial fibrillation (CMS/HCC) (HCC) DIFFERENTIAL AUTO Routine 08/20/2023 10: 43 AM LIVESTOCK AUCTIONEER Paroxysmal atrial fibrillation (CMS/HCC) (HCC) CBC WITH AUTO DIFFERENTIAL Routine 08/20/2023 10:43 AM LIVESTOCK AUCTIONEER Paroxysmal atrial fibrillation (CMS/HCC) (HCC) LIPID PANEL Routine 08/20/2023 10:43 AM LIVESTOCK AUCTIONEER 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 73 m2 Comment: [...] reviewed 2021. Blood 08/20/2023 10:4 3 AM LIVESTOCK AUCTIONEER 08/20/2023 11:15 AM LIVESTOCK AUCTIONEER us Sami Stafford MD LAB BLOOD ORDERABLES Final Re sult [facility] [place] [address] * Differential, auto (08/20/2023 10:43 AM LIVESTOCK AUCTIONEER) Neutrophil abs 2.9 1.5 - 6.5 K/cumm Imm gran abs 0.0 0.0 - 0.1 K/cumm [facility] Lymphocyte abs 0.9 0.8 - 3.3 K/cumm [facility] Monocyte abs 0.5 0.2 - 0.8 K/cumm [facility] Eosinophil abs 0.1 0.0 - 0.5 K/cumm [facility] Basophil abs 0.0 0.0 - 0.1 K/cumm [facility] Neutrophil pct 64.9 % [facility] Comment: Interpretive Data Percent cell count reference ranges are not reported, since discordance with absolute values may lead to misinterpretation of CBC data. Current Interpretive Data was last revised on 2017. Imm gran pct 0.2 % [facility] Comment: Interpretive Data Percent cell count reference ranges are not reported, since discordance with absolute values may lead to misinterpretation of CBC data. Current Interpretive Data was last revised on 2017. Lymphocyte pct 20.0 % [facility] Comment: Interpretive Data Percent cell count reference ranges are not reported, since discordance with absolute values may lead to misinterpretation of CBC data. Current Interpretive Data was last revised on 2017. Monocyte pct 12.2 % [facility] Comment: Interpretive Data Percent cell count reference ranges are not reported, since discordance with absolute values may lead to misinterpretation of CBC data. Current Interpretive Data was last revised on 2017. Eosinophil pct 1.8 % [facility] Comment: Interpretive Data Percent cell count reference ranges are not reported, since discordance with absolute values may lead to misinterpretation of CBC data. Current Interpretive Data was last revised on 2017. Basophil pct 0.9 % [facility] Comment: Interpretive Data Percent cell count reference ranges are not reported, since discordance with absolute values may lead to misinterpretation of CBC data. Current Interpretive Data was last revised on 2017. Blood 08/20/2023 10:4 3 AM LIVESTOCK AUCTIONEER 08/20/2023 11:08 AM LIVESTOCK AUCTIONEER us Sami Stafford MD LAB BLOOD ORDERABLES Final [facility] [place] [address] * (ABNORMAL) Comprehensive metabolic panel (08/20/2023 10:43 AM LIVESTOCK AUCTIONEER) Sodium 139 135 - 145 mmol/L Potassium, pl 5.0(H) 3.3 - 4.9 mmol/L [facility] Chloride 106 97 - 110 mmol/L [facility] CO2 26 22 - 32 mmol/L [facility] Anion gap 7 2 - 15 mmol/L [facility] BUN 22 6 - 25 mg/dL [facility] Creatinine 1.63(H) 0.60 - 1.10 mg/dL [facility] Glucose 84 70 - 199 mg/dL [facility] Comment: Interpretive Data Fasting glucose [...] 2022. Calcium 10.0 8.5 - 10.3 mg/dL [facility] Bilirubin, total 0.5 0.1 - 1.2 mg/dL [facility] Protein, pl 7.5 6.5 - 8.5 g/dL [facility] Albumin 4.2 3.5 - 5.0 g/dL [facility] Alk phos 81 40 - 130 Units/L [facility] ALT 108(H) 7 - 45 Units/L [facility] AST 95(H) 10 - 45 Units/L [facility] Blood 08/20/2023 10:4 3 AM LIVESTOCK AUCTIONEER 08/20/2023 11:08 AM LIVESTOCK AUCTIONEER us Sami Stafford MD LAB BLOOD ORDERABLES Final Re sult [facility] [place] [address] * Lipid panel (08/20/2023 10:43 AM LIVESTOCK AUCTIONEER) Cholesterol 158 30 - 199 mg/dL Comment: [...] on 2018. LDL, calculated 76 <=129 mg/dL [facility] Comment: Interpretive Data Ages < [...] revised on 2018. Non-HDL Cholesterol 98 mg/dL [facility] Comment: Interpretive Data Ages < [...] last revised on 2018. Chol/HDL ratio 3 [facility] Blood 08/20/2023 10:4 3 AM LIVESTOCK AUCTIONEER 08/20/2023 11:08 AM LIVESTOCK AUCTIONEER us Sami Stafford MD LAB BLOOD ORDERABLES Final Re sult Performing Organization Address [facility] Co de Phone Number [facility] Department [place] [address] * (ABNORMAL) CBC with auto differential (08/20/2023 10:43 AM LIVESTOCK AUCTIONEER) Pathologist [facility] WBC 4.4 3.8 - 9.9 K/cumm Hgb 8.4(L) 11.9 - 15.5 g/dL [facility] Hct 26.8(L) 35.6 - 45.5 % [facility] Plt 185 150 - 400 K/cumm [facility] MPV 12.3 9.1 - 12.3 fL [facility] RBC 2.84(L) 3.90 - 5.20 M/cumm [facility] MCV 94.4 81.3 - 96.4 fL [facility] MCH 29.6 27.1 - 33.3 pg [facility] MCHC 31.3(L) 32.3 - 35.7 g/dL [facility] RDW CV 13.2 11.1 - 14.9 % [facility] RDW SD 45.5 35.7 - 48.1 fL [facility] NRBC abs 0.00 0.00 - 0.01 K/cumm [facility] Blood 08/20/2023 10:4 3 AM LIVESTOCK AUCTIONEER 08/20/2023 11:08 AM LIVESTOCK AUCTIONEER us Sami Stafford MD LAB BLOOD ORDERABLES Final Re sult Performing Organization Address City/[facility]/ZIP Co de Phone Number 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
--- OUTSIDE RECORDS SUMMARY | 2024-06-12 04:30 | XMS_ITS | Encounter Summary ---
Author Organization [facility] Healthcare Address [address] [place] [address] Care Team Providers Care Quencher Operator Name Role Phone Cristian Ling MD Primary Care Prov ider Encounter Details Date Type Department Care Team (Latest Contact Info) Description 04/11/2023 10:19 AM CDT - 04/11/2023 11:59 PM CDT Hospital Encounter [facility] [address] [place] [address] Left wrist pain Discharge Disposition: Discharge to [...] on file Legal Sex Female 7:12 AM BUNCH TRIMMER MOLD Gender Identity Female 02/07/2021 4:33 PM CDT [...] PM Lena Mccoy 02/18/2023 02/18/2023 3:05 AM BUNCH TRIMMER MOLD documented as of this encounter Care Teams Quencher Operator Relationship Specialty Start Date End Date Cristian Ling MD [address] [place] [address] PCP - General 10/16/16 documented as of this encounter
--- OUTSIDE RECORDS SUMMARY | 2024-06-12 04:30 | XMS_ITS | Encounter Summary ---
Author Organization [facility] Address [address] [place] [address] Phone Care Team Providers Care Door Glass Installer Name Role Phone Cristian Ling MD Primary Care Prov ider Encounter Details Date Type Department Care Team (Late st Contact Info) Description 10/05/2023 Orders Only [facility] Hematology [address] [facility] Advanced Medicine 7th [place] [address] [place] [address] Jody Foley Social History Tobacco [...] on file Legal Sex Female 7:12 AM SHEET FED PRINTER Gender Identity Female 02/07/2021 4:33 PM CDT Sexual Orientation Straight 02/07/2021 4: 33 PM CDT documented as of this encounter Plan of Treatment Not on file documented as of this encounter Visit Diagnoses Not on filedocumented in this encounter Care Teams Door Glass Installer Relationship Specialty Start Date End Date Cristian Ling MD [address] [place] [address] PCP - General 10/16/16 documented as of this encounter
--- OUTSIDE RECORDS SUMMARY | 2024-06-12 04:30 | XMS_ITS | Encounter Summary ---
Author Organization [facility] Address [address] [place] [address] Phone Care Team Providers Care Beam Dyer Name Role Phone Cristian Ling MD Primary Care Prov ider Reason for Visit * Reason Onset Date Comments iron infusion 10/13/2023 Encounter Details Date Type Department Care Team (Late st Contact Info) Description 10/13/2023 Telephone [facility] Hematology [address] [facility] 7th [place] [address] [place] [address] Jody Foley iron infusion Social [...] on file Legal Sex Female 7:12 AM VIDEO NEWS EDITOR Gender Identity Female 02/07/2021 4:33 PM CDT Sexual Orientation Straight 02/07/2021 4: 33 PM CDT documented as of this encounter Miscellaneous Notes * Telephone Encounter - Jody Foley - 10/13/2023 9:27 AM CDT Patient called, not feeling well and would like to cancel her iron infusion for today and r/s for 10/13 anytime or 5/3 pm. Message left for monorail charger operator and requested new appt. documented in this [...] 10/13/2023 documented in this encounter Care Teams Beam Dyer Relationship Specialty Start Date End Date Cristian Ling MD [address] [place] [address] PCP - General 10/16/16 documented as of this encounter
--- OUTSIDE RECORDS SUMMARY | 2024-06-12 04:30 | XMS_ITS | Encounter Summary ---
Author Organization [facility] Healthcare Address [address] [place] [address] Care Team Providers Care C D Area Supervisor Name Role Phone Cristian Ling MD Primary Care Prov ider Encounter Details Date Type Department Care Team (Latest Contact Info) Description 10/03/2023 12:47 PM CDT - 10/03/2023 11:59 PM CDT Hospital Encounter [facility] Advanced Medicine [facility] Advanced [facility] ([facility]) [address] [place] [phone] Anemia, unspecified type Discharge Disposition: Discharge to [...] on file Legal Sex Female 7:12 AM NEEDLE LOOM OPERATOR HELPER Gender Identity Female 02/07/2021 4:33 PM [...] profile w/ IBC (10/03/2023 11:06 AM CDT) [facility] Iron 31(L) 35 - 145 mcg/dL TIBC 424(H) 250 - 400 mcg/dL [facility] Transferrin saturation 7(L) 20 - 50 % [facility] Blood 10/03/2023 11:0 6 AM CDT 10/03/2023 12:30 PM CDT Katja Linares MD LAB BLOOD ORDERABLES Caitlyn l Result [facility] Department [place] [address] * Ferritin (10/03/2023 11:06 AM CDT) [facility] Ferritin 43 13 - 150 ng/mL Blood 10/03/2023 11:0 6 AM CDT 10/03/2023 12:30 PM CDT Katja Linares MD LAB BLOOD ORDERABLES Caitlyn l Result [facility] Department [place] [address] * (ABNORMAL) eGFR (10/03/2023 11:06 AM CDT) Pathologist [facility] eGFR 36(L) >=60 mL/min/1. 73 m2 Comment: [...] was last reviewed 2021. Testing performed by: [facility], [address] [place] [phone] Blood 10/03/2023 11:0 6 AM CDT 10/03/2023 11:09 AM CDT us Katja Linares MD LAB BLOOD ORDERABLES Caitlyn l Result [facility] Department [place] [address] * (ABNORMAL) Differential, auto (10/03/2023 11:06 AM CDT) Neutrophil abs 2.6 1.5 - 6.6 K/cumm Comment:Testing performed by : [facility], [address] [place] [phone] Lymphocyte abs 1.1(L) 1.2 - 3.3 K/cumm [facility] Comment:Testing performed by : [facility], [address] [place] [phone] Monocyte abs 0.6 0.2 - 1.2 K/cumm [facility] Comment:Testing performed by : [facility], [address] [place] [phone] Eosinophil abs 0.0 0.0 - 0.5 K/cumm [facility] Comment:Testing performed by : [facility], [address] [place] [phone] Basophil abs 0.0 0.0 - 0.2 K/cumm [facility] Comment:Testing performed by : [facility], [address] [place] [phone] Neutrophil pct 59.1 % [facility] Comment: Interpretive Data Percent cell count reference ranges are not reported, since discordance with absolute values may lead to misinterpretation of CBC data. Current Interpretive Data was last revised on 2017. Testing performed by: [facility], [address] [place] [phone] Lymphocyte pct 24.5 % [facility] Comment: Interpretive Data Percent cell count reference ranges are not reported, since discordance with absolute values may lead to misinterpretation of CBC data. Current Interpretive Data was last revised on 2017. Testing performed by: [facility], [address] [place] [phone] Monocyte pct 14.7 % [facility] Comment:Testing performed by : [facility], [address] [place] [phone] Eosinophil pct 1.0 % [facility] Comment:Testing performed by : [facility], [address] [place] [phone] Basophil pct 0.7 % [facility] Comment:Testing performed by : [address] [phone] Blood 10/03/2023 11:0 6 AM CDT 10/03/2023 11:09 AM CDT Katja Linares MD LAB BLOOD ORDERABLES Caitlyn dominguez Result [facility] Department [place] [address] * (ABNORMAL) CBC with auto differential (10/03/2023 11:06 AM CDT) WBC 4.3 3.8 - 9.8 K/cumm Comment:Testing performed by : [facility], [address] [place] [phone] Hgb 8.3(L) 12.1 - 15.1 g/dL [facility] Comment:Testing performed by : [address] [phone] Hct 25.8(L) 36.1 - 44.3 % [facility] Comment:Testing performed by : [address] [phone] Plt 187 140 - 440 K/cumm [facility] Comment:Testing performed by : [facility], [address] [place] [phone] MPV 8.6 6.8 - 10.4 fL [facility] Comment:Testing performed by : [address] [phone] RBC 3.01(L) 3.90 - 5.00 M/cumm [facility] Comment:Testing performed by : [address] [phone] MCV 86.0 80.0 - 97.6 fL [facility] Comment:Testing performed by : [facility], [address] [place] [phone] MCH 27.5 26.7 - 33.7 pg [facility] Comment:Testing performed by : [address] [phone] MCHC 31.9(L) 32.7 - 35.5 g/dL [facility] Comment:Testing performed by : [address] [phone] RDW CV 15.1(H) 11.8 - 14.6 % [facility] Comment:Testing performed by : [facility], [address] [place] [phone] NRBC abs 0.00 0.00 - 0.01 K/cumm [facility] Comment:Testing performed by : [facility], [address] [place] [phone] Blood 10/03/2023 11:0 6 AM CDT 10/03/2023 11:09 AM CDT us Katja Linares MD LAB BLOOD ORDERABLES Caitlyn l Result [facility] Department [place] [address] * (ABNORMAL) Comprehensive metabolic panel (10/03/2023 11:06 AM CDT) Sodium 139 135 - 145 mmol/L Comment:Testing performed by : [facility], [address] [place] [phone] Potassium, pl 4.5 3.3 - 4.9 mmol/L [facility] Comment:Testing performed by : [facility], [address] [place] [phone] Chloride 105 97 - 110 mmol/L [facility] Comment:Testing performed by : [facility], [address] [place] [phone] CO2 26 22 - 32 mmol/L [facility] Comment:Testing performed by : [facility], [address] [place] [phone] Anion gap 8 2 - 15 mmol/L [facility] Comment:Testing performed by : [facility], [address] [place] [phone] BUN 18 6 - 25 mg/dL [facility] Comment:Testing performed by : [facility], [address] [place] [phone] Creatinine 1.48(H) 0.60 - 1.10 mg/dL [facility] Comment:Testing performed by : [facility], [address] [place] [phone] Glucose 94 70 - 199 mg/dL [facility] [...] was last revised 2022. Testing performed by: [facility], [address] [place] [phone] Calcium 10.4(H) 8.5 - 10.3 mg/dL [facility] Comment:Testing performed by : [address] [phone] Bilirubin, total 0.4 0.1 - 1.2 mg/dL [facility] Comment:Testing performed by : [facility], [address] [place] [phone] Protein, pl 7.5 6.5 - 8.5 g/dL [facility] Comment:Testing performed by : [facility], [address] [place] [phone] Albumin 4.5 3.5 - 5.0 g/dL [facility] Comment:Testing performed by : [address] [phone] Alk phos 84 40 - 130 Units/L [facility] Comment:Testing performed by : [facility], [address] [place] [phone] ALT 144(H) 7 - 45 Units/L [facility] Comment:Testing performed by : [address] [phone] AST 131(H) 10 - 45 Units/L [facility] Comment:Testing performed by : [address] [phone] Blood 10/03/2023 11:0 6 AM CDT 10/03/2023 11:09 AM CDT us Katja Linares MD LAB BLOOD ORDERABLES Caitlyn dominguez Result [facility] [place] [address] documented in this encounter Visit Diagnoses Diagnosis Anemia, unspecified type documented in this encounter Care Teams C D Area Supervisor Relationship Specialty Start Date End Date Cristian Ling MD [address] [place] [address] PCP - General 10/16/16 documented as of this encounter
--- OUTSIDE RECORDS SUMMARY | 2024-06-12 04:30 | XMS_ITS | Encounter Summary ---
Author Organization [facility] Address [address] [place] [address] Phone Care Team Providers Care Bushing Press Operator Name Role Phone Cristian Ling MD Primary Care Prov ider Encounter Details Date Type Department Care Team (Late st Contact Info) Description 10/10/[address] [facility] Hematology [address] [facility] 7th [place] [address] [place] [address] Kate Fleming RN Social History [...] on file Legal Sex Female 7:12 AM COMBATANT DIVER OFFICER Gender Identity Female 02/07/2021 4:33 PM [...] on filedocumented in this encounter Care Teams Bushing Press Operator Relationship Specialty Start Date End Date Cristian Ling MD [address] [place] [address] PCP - General 10/16/16 documented as of this encounter
--- OUTSIDE RECORDS SUMMARY | 2024-06-12 04:30 | XMS_ITS | Encounter Summary ---
Author Organization [facility] Address [address] [place] [address] Phone Care Team Providers Care Photo Studio Assistant Name Role Phone Cristian Ling MD Primary Care Prov ider Reason for Visit * Oncology (Routine) - Authorized Specialty Diagnoses / Procedures Referred By Contac t Referred To Contact Hematology Diagnoses Anemia, unspecified type Sami Stafford MD [address] [facility] [address] [place] [address] Phone: tel: fax: Katja Joe MD Phone: tel: fax: Referral ID Status Reason Start Date Expiration Date Visits Requested Visits Authorized [id number] Authorized Specialty Services Required 07/22/2022 09/29/2024 26 26 Encounter Details Date Type Department Care Team (Late st Contact Info) Description 10/03/2023 11:15 AM CDT Office Visit [facility] Hematology [address] [facility] 7th [place] [address] [place] [address] Katja Joe MD [address] [place] [address] Iron deficiency anemia due to chronic blood [...] on file Legal Sex Female 7:12 AM CLIENT SERVICE REPRESENTATIVE Gender Identity Female 02/07/2021 4:33 PM [...] on anticoagulation, Apical variant HCM, CAD 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 She was told no abnormality was found and we will reach out to the Medical Records to get the report faxed over for review. All her questions and concerns were answered to apparent satisfaction. We will see her back in clinic in 6 months. Katja Linares MD Commercial Relationship Managercar filler Division of Hematology REASON FOR VISIT: Patient is a 78 y.o. female, who comes in today to clinic for a Return visit. DIAGNOSIS: Chronic Anemia in setting of CKD stage IIIB as well as recent evidence of iron-deficiency. HISTORY OF PRESENTING ILLNESS: 77 y.o. female with a PMH of pAFib, Apical variant HCM, CAD with OH in 2012 s/p CABG HTN, DDD,diverticulitis, vertigo, [...] inpatient admission in March of [address] [facility] where she presented as an outside hospital [...] Problem List Unprioritized Coronary artery disease involving wiyot coronary artery of wiyot heart without angina pectoris Hx of CABG Primary hypertension History of OH (myocardial infarction) Lumbar stenosis with neurogenic claudication [...] PROTSER 5.9 (L) 02/23/2023 ALBFRACTN 3.9 10/18/2022 [id number] 0.3 10/18/2022 [id number] 0.8 10/18/2022 BETA1 0.4 10/18/2022 BETA2 0.3 [...] 10/03/2023 documented in this encounter Care Teams Photo Studio Assistant Relationship Specialty Start Date End Date Cristian Ling MD [address] [place] [address] PCP - General 10/16/16 documented as of this encounter
--- OUTSIDE RECORDS SUMMARY | 2024-06-12 04:30 | XMS_ITS | Encounter Summary ---
Author Organization [facility] Address [address] [place] [address] Phone Care Team Providers Care Map And Chart Mounter Name Role Phone Cristian Ling MD Primary Care Prov ider Reason for Visit * Oncology (Routine) - Authorized Specialty Diagnoses / Procedures Referred By Contac t Referred To Contact Oncology Diagnoses Anemia, unspecified type Procedures ONCBCN ARM DRAW APPT ONC LAB ONLY Katja Joe MD [address] [place] [address] Phone: tel: fax: Katja Joe MD Phone: tel: fax: Referral ID Status Reason Start Date Expiration Date Visits Requested Visits Authorized [id number] Authorized Specialty Services Required 09/03/2022 09/29/2024 99 99 Encounter Details Date Type Department Care Team (Late st Contact Info) Description 10/03/2023 10:[address] [facility] Oncology [address] [facility] 7th [place] [address] [place] [address] Social History Tobacco Use Types [...] on file Legal Sex Female 7:12 AM EDUCATION DIAGNOSTICIAN Gender Identity Female 02/07/2021 4:33 PM CDT Sexual Orientation Straight 02/07/2021 4: 33 PM CDT documented as of this encounter Plan of Treatment Not on file documented as of this encounter Visit Diagnoses Not on filedocumented in this encounter Care Teams Map And Chart Mounter Relationship Specialty Start Date End Date Cristian Ling MD [address] [place] [address] PCP - General 10/16/16 documented as of this encounter
--- OUTSIDE RECORDS SUMMARY | 2024-06-12 04:30 | XMS_ITS | Encounter Summary ---
Author Organization [facility] Address [address] [place] [address] Phone Care Team Providers Care Sub Assembly Team Worker Name Role Phone Cristian Ling MD Primary Care Prov ider Encounter Details Date Type Department Care Team (Late st Contact Info) Description 10/16/2023 Orders Only [facility] Bone Marrow Transplant [address] [address] Jody Foley Iron deficiency anemia, [...] file Legal Sex Female 7:12 AM SALES & SERVICE ASSOCIATE Gender Identity Female 02/07/2021 4:33 PM [...] 10/30/2023 documented in this encounter Care Teams Sub Assembly Team Worker Relationship Specialty Start Date End Date Cristian Ling MD [address] [place] [address] PCP - General 10/16/16 documented as of this encounter
--- OUTSIDE RECORDS SUMMARY | 2024-06-12 04:30 | XMS_ITS | Encounter Summary ---
Author Organization [facility] Address [address] [place] [address] Phone Care Team Providers Care Game Technician Name Role Phone Cristian Ling MD Primary Care Prov ider Encounter Details Date Type Department Care Team (Late st Contact Info) Description 10/07/[address] [facility] Orthopaedic Surgery [address] [facility] 2nd Floor [address] [place] [address] Vidya Grace LPN Social History [...] on file Legal Sex Female 7:12 AM PASTRY ASSISTANT Gender Identity Female 02/07/2021 4:33 PM [...] on filedocumented in this encounter Care Teams Game Technician Relationship Specialty Start Date End Date Cristian Ling MD [address] [place] [address] PCP - General 10/16/16 documented as of this encounter
--- OUTSIDE RECORDS SUMMARY | 2024-06-12 04:30 | XMS_ITS | Encounter Summary ---
Author Organization [facility] Address [address] [place] [address] Phone Care Team Providers Care Profile Shaper Operator Name Role Phone Cristian Ling MD Primary Care Prov ider Encounter Details Date Type Department Care Team (Late st Contact Info) Description 05/14/2023 Telephone [facility] Cardiology [address] [facility] 8th [place] [address] [place] [address] Sami Stafford MD [address] [facility] [address] [place], [place] [id number] Social History Tobacco Use Types Packs/Day Years [...] on file Legal Sex Female 7:12 AM FISH CHECKER Gender Identity Female 02/07/2021 4:33 PM CDT Sexual Orientation Straight 02/07/2021 4: 33 PM CDT documented as of this encounter Miscellaneous Notes * Telephone Encounter - Zahida Heredia, RN - 05/14/2023 11:46 AM FISH CHECKER Patient calling to reschedule upcoming appt with Dr. Stafford on 06/11 - she reports she cannot make that day. Please assist her in making appt with either Dr. Stafford or DENTAL SERVICE TECHNICIAN CHECKER * Telephone Encounter - Ella Diggs - 05/14/2023 11:05 AM CST [place] Pt is calling in regards to speaking to a nurse about her recent stay at [facility]. CHECKER documented in this encounter Plan of Treatment [...] PM Lena Mccoy 02/18/2023 02/18/2023 3:05 AM FISH CHECKER documented as of this encounter Care Teams Profile Shaper Operator Relationship Specialty Start Date End Date Cristian Ling MD [address] [place] [address] PCP - General 10/16/16 documented as of this encounter
--- OUTSIDE RECORDS SUMMARY | 2024-06-12 04:30 | XMS_ITS | Encounter Summary ---
Author Organization [facility] Address [address] [place] [address] Phone Care Team Providers Care Dry Roaster Name Role Phone Cristian Ling MD Primary Care Prov ider Encounter Details Date Type Department Care Team (Late st Contact Info) Description 04/14/2023 Telephone [facility] Orthopaedic Surgery [address] [place] [address] Jamari Rodríguez MD [address] [facility] [address] [place] [address] Social History Tobacco Use Types [...] on file Legal Sex Female 7:12 AM CABLE TELEVISION LINE TECHNICIAN Gender Identity Female 02/07/2021 4:33 PM [...] RT Patient son can be reached at [phone] documented in this encounter Plan of Treatment [...] Lena Mccoy 02/18/2023 02/18/2023 4 3:05 AM CABLE TELEVISION LINE TECHNICIAN documented as of this encounter Care Teams Dry Roaster Relationship Specialty Start Date End Date Cristian Ling MD [address] [place] [address] PCP - General 10/16/16 documented as of this encounter
--- OUTSIDE RECORDS SUMMARY | 2024-06-12 04:30 | XMS_ITS | Encounter Summary ---
Author Organization [facility] Address [address] [place] [address] Phone Care Team Providers Care Talent Associate Name Role Phone Cristian Ling MD Primary Care Prov ider Encounter Details Date Type Department Care Team (Late st Contact Info) Description 09/28/2023 Orders Only [facility] Hematology [address] [facility] 7th [place] [address] [place] [address] Jody Folye Anemia, unspecified type (Primary Dx) Social History [...] file Legal Sex Female 7:12 AM FIRE PRODUCTION OPERATOR Gender Identity Female 02/07/2021 4:33 PM CDT Sexual Orientation Straight 02/07/2021 4: 33 PM CDT documented as of this encounter Plan of Treatment Not on file documented as of this encounter Results * (ABNORMAL) Comprehensive metabolic panel (10/03/2023 11:06 AM CDT) Sodium 139 135 - 145 mmol/L Comment:Testing performed by : [facility], [address] [place] [phone] Potassium, pl 4.5 3.3 - 4.9 mmol/L [facility] Comment:Testing performed by : [facility], [address] [place] [phone] Chloride 105 97 - 110 mmol/L [facility] Comment:Testing performed by : [facility], [address] [place] [phone] CO2 26 22 - 32 mmol/L [facility] Comment:Testing performed by : [facility], [address] [place] [phone] Anion gap 8 2 - 15 mmol/L [facility] Comment:Testing performed by : [facility], [address] [place] [phone] BUN 18 6 - 25 mg/dL [facility] Comment:Testing performed by : [facility], [address] [place] [phone] Creatinine 1.48(H) 0.60 - 1.10 mg/dL [facility] Comment:Testing performed by : [facility], [address] [place] [phone] Glucose 94 70 - 199 mg/dL [facility] Comment: Interpretive Data Fasting glucose >/= [...] was last revised 2022. Testing performed by: [facility], [address] [place] [phone] Calcium 10.4(H) 8.5 - 10.3 mg/dL [facility] Comment:Testing performed by : [facility], [address] [place] [phone] Bilirubin, total 0.4 0.1 - 1.2 mg/dL [facility] Comment:Testing performed by : [facility], [address] [place] [phone] Protein, pl 7.5 6.5 - 8.5 g/dL [facility] Comment:Testing performed by : [facility], [address] [place] [phone] Albumin 4.5 3.5 - 5.0 g/dL [facility] Comment:Testing performed by : [facility], [address] [place] [phone] Alk phos 84 40 - 130 Units/L [facility] Comment:Testing performed by : [facility], [address] [place] [phone] ALT 144(H) 7 - 45 Units/L [facility] Comment:Testing performed by : [facility], [address] [place] [phone] AST 131(H) 10 - 45 Units/L [facility] Comment:Testing performed by : [facility], [address] [place] [phone] Blood 10/03/2023 11:0 6 AM CDT 10/03/2023 11:09 AM CDT Katja Linares MD LAB BLOOD ORDERABLES Caitlyn dominguez Result [facility] Department [place] [address] * (ABNORMAL) CBC with auto differential (10/03/2023 11:06 AM CDT) WBC 4.3 3.8 - 9.8 K/cumm Comment:Testing performed by : [facility], [address] [place] [phone] Hgb 8.3(L) 12.1 - 15.1 g/dL [facility] Comment:Testing performed by : [facility], [address] [place], [place] [phone] Hct 25.8(L) 36.1 - 44.3 % [facility] Comment:Testing performed by : [facility], [address] [place] [address] Plt 187 140 - 440 K/cumm [facility] Comment:Testing performed by : [place] [address] MPV 8.6 6.8 - 10.4 fL [facility] Comment:Testing performed by : [facility], [address] [place] [address] RBC 3.01(L) 3.90 - 5.00 M/cumm [facility] Comment:Testing performed by : [place] [address] MCV 86.0 80.0 - 97.6 fL [facility] Comment:Testing performed by : [facility], [address] [place] [address] MCH 27.5 26.7 - 33.7 pg [facility] Comment:Testing performed by : [place] [address] MCHC 31.9(L) 32.7 - 35.5 g/dL [facility] Comment:Testing performed by : [place] [address] RDW CV 15.1(H) 11.8 - 14.6 % [facility] Comment:Testing performed by : [facility], [address] [place] [address] NRBC abs 0.00 0.00 - 0.01 K/cumm [facility] Comment:Testing performed by : [place] [address] Blood 10/03/2023 11:0 6 AM CDT 10/03/2023 11:09 AM CDT us Katja Linares MD LAB BLOOD ORDERABLES Caitlyn dominguez Result [facility] Department [place] [address] documented in this encounter Visit Diagnoses Diagnosis Anemia, unspecified type- Primary documented in this encounter Care Teams Talent Associate Relationship Specialty Start Date End Date Cristian Ling MD [address] [place] [address] PCP - General 10/16/16 documented as of this encounter
--- OUTSIDE RECORDS SUMMARY | 2024-06-12 04:30 | XMS_ITS | Encounter Summary ---
Author Organization [facility] Address [address] [place] [address] Phone Care Team Providers Care Airport Maintenance Chief Name Role Phone Cristian Ling MD Primary Care Prov ider Encounter Details Date Type Department Care Team (Late st Contact Info) Description 2023 Telephone [facility] Cardiology [address] [facility] 8th [place] [address] [place] [address] Sami Stafford MD [address] [facility] [address] [place], [place] [id number] Social History Tobacco Use Types Packs/Day Years [...] on file Legal Sex Female 7:12 AM ADULT SPECIALIST Gender Identity Female 02/07/2021 4:33 PM CDT Sexual Orientation Straight 02/07/2021 4: 33 PM CDT documented as of this encounter Miscellaneous Notes * Telephone Encounter - Sheila Solomon RN - 2023 3:19 PM CDT LMOR for Endoscopy to return call. * Telephone Encounter - Ella Diggs - 2023 8:56 AM CDT [facility] Endoscopy is calling in regards to speaking to a nurse about the patient being [facility]. documented in this encounter Plan [...] Lena Mccoy 02/18/2023 02/18/2023 4 3:05 AM ADULT SPECIALIST documented as of this encounter Care Teams Airport Maintenance Chief Relationship Specialty Start Date End Date Cristian Ling MD [address] [place] [address] PCP - General 10/16/16 documented as of this encounter
--- OUTSIDE RECORDS SUMMARY | 2024-06-12 04:30 | XMS_ITS | Encounter Summary ---
Author Organization [facility] Address [address] [place] [address] Phone Care Team Providers Care Dimension Mill Worker Name Role Phone Cristian Ling MD Primary Care Prov ider Reason for Visit * Consultation (Routine) - Closed Specialty Diagnoses / Procedures Referred By Contac t Referred To Contact Cardiology Diagnoses Chronic coronary artery disease Hx of CABG Primary hypertension Sami Stafford MD [address] [facility] [address] [place] [address] Phone: tel: fax: [facility] (All Locations) Referral ID Status Reason Start Date Expiration Date V isits Requested Visits Authorized [id number] Closed Specialty Services Required 11/25/2022 11/27/2023 12 12 Encounter Details Date Type Department Care Team (Late st Contact Info) Description 08/20/2023 9:30 AM PEARL CUTTER Office Visit [facility] Cardiology [address] [facility] Medicine 8th [place] [address] [place] [id number] Sami Stafford MD [address] [facility] [address] [place] [address] Paroxysmal atrial fibrillation (CMS/HCC) (HCC) (Primary Dx); Chronic heart failure with preserved ejection fraction (CMS/HCC) (HCC); Apical variant hypertrophic cardiomyopathy (HCC); Coronary artery disease involving klamath coronary artery of klamath heart without angina pectoris; Primary hypertension; NSVT (nonsustained ventricular tachycardia) ([facility]); Therapeutic drug monitoring Social History Tobacco Use [...] on file Legal Sex Female 7:12 AM PEARL CUTTER Gender Identity Female 02/07/2021 4:33 PM CDT Sexual Orientation Straight 02/07/2021 4: 33 PM CDT documented as of this encounter Last Filed Vital Signs Vital Sign Reading Time Taken Comments Blood Pressure 116/64 08/20/2023 9:56 AM PEARL CUTTER Pulse 61 08/20/2023 9:56 AM PEARL CUTTER Temperature - - Respiratory Rate - - Oxygen Saturation 99% 08/20/2023 9:56 AM PEARL CUTTER Inhaled Oxygen Concentration - - Weight 74.4 kg (164 lb) 08/20/2023 9:56 AM PEARL CUTTER Height 162.6 cm (5' 4 ) 08/20/2023 9:56 AM PEARL CUTTER Body Mass Index 28.15 08/20/2023 9:56 AM PEARL CUTTER documented in this encounter Patient Instructions * Patient Instructions* Sami Stafford MD - 08/20/2023 9:30 AM PEARL CUTTER Would recommend taking apixaban (Eliquis) about 12 hours apart: 8 am, 8 pm. Labs today. *PHILIP Menjivar will call you with the results* Let's continue current medications for now. Please call with any concerns. Have a wonderful spring! L CUTTER L CUTTER L CUTTER documented in this encounter Progress Notes * Sami Stafford MD - 08/20/2023 9:30 AM CST Images from the original note were not included. Department of Medicine Sami Stafford MD, MPHS, [facility] Cardiovascular Division rail tractor operator Patient Name: Tiera Lobato : 1945 [...] amiodarone and hypotension, she was transferred to [facility] 02/17/23 and was hospitalized till 03/20/23. Of note, her outside hospital course also included MRSA cellulitis and bacteremia and septic pulmonary emboli. She had a complicated hospital course (notes reviewed) at [facility] which included CLAUDIA on CKD3a to Cr 2.0, orthostatic hypotension attributed to prolonged bedrest and limited oral hydration, nausea with unrevealing etiology, and urinary retention attributed to medications. AL amyloid screening labs showed normal kappa/lambda ratio. --- She was in rehab for about a month, is now back at [facility], an assisted living facility. She feels well [...] in I, aVL, V3-6, normal axis, normal ME, QRS and QT intervals. 30-day monitor 05/2022 [...] with an echo. # CAD with prior PA and CABG in 2012 (LAWSON-LAD, SVG-OM). Nuclear [...] or concerns. Sincerely, Sami Stafford MD, MPHS, [facility] rail tractor operator Cardiovascular Division [facility] in [facility] --- Please note: This note was generated in part using voice-recognition software and may contain rail car driver errors. L CUTTER documented in this encounter Plan of Treatment Not on file documented as of this encounter Procedures Procedure Name Priority Date/Time Associated Diagnosis Comments ECG 12-LEAD Routine 08/20/2023 Chronic heart failure with preserved ejection fraction (CMS/HCC) (HCC) documented in this encounter Results * (ABNORMAL) CBC with auto differential (08/20/2023 10:43 AM PEARL CUTTER) WBC 4.4 3.8 - 9.9 K/cumm Hgb 8.4(L) 11.9 - 15.5 g/dL [facility] Hct 26.8(L) 35.6 - 45.5 % [facility] Plt 185 150 - 400 K/cumm [facility] MPV 12.3 9.1 - 12.3 fL [facility] RBC 2.84(L) 3.90 - 5.20 M/cumm [facility] MCV 94.4 81.3 - 96.4 fL [facility] MCH 29.6 27.1 - 33.3 pg [facility] MCHC 31.3(L) 32.3 - 35.7 g/dL [facility] RDW CV 13.2 11.1 - 14.9 % [facility] RDW SD 45.5 35.7 - 48.1 fL [facility] NRBC abs 0.00 0.00 - 0.01 K/cumm [facility] Blood 08/20/2023 10:4 3 AM PEARL CUTTER 08/20/2023 11:08 AM PEARL CUTTER us Sami Stafford MD LAB BLOOD ORDERABLES Final Re sult [facility] [place] [address] * Lipid panel (08/20/2023 10:43 AM PEARL CUTTER) Cholesterol 158 30 - 199 mg/dL Comment: [...] revised on 2018. Triglycerides 109 <=149 mg/dL [facility] Comment: Interpretive Data Ages < or [...] revised on 2018. HDL 60 >=40 mg/dL [facility] Comment: Interpretive Data Ages < or [...] on 2018. LDL, calculated 76 <=129 mg/dL [facility] Comment: Interpretive Data Ages < or [...] [facility] Blood 08/20/2023 10:4 3 AM PEARL CUTTER 08/20/2023 11:08 AM PEARL CUTTER us Sami Stafford MD LAB BLOOD ORDERABLES Final Re sult [facility] Department [place] [address] * (ABNORMAL) Comprehensive metabolic panel (08/20/2023 10:43 AM PEARL CUTTER) Sodium 139 135 - 145 mmol/L Potassium, pl 5.0(H) 3.3 - 4.9 mmol/L [facility] Chloride 106 97 - 110 mmol/L [facility] CO2 26 22 - 32 mmol/L [facility] Anion gap 7 2 - 15 mmol/L [facility] BUN 22 6 - 25 mg/dL [facility] Creatinine 1.63(H) 0.60 - 1.10 mg/dL [facility] Glucose 84 70 - 199 mg/dL [facility] Comment: Interpretive Data Fasting glucose [...] 2022. Calcium 10.0 8.5 - 10.3 mg/dL [facility] Bilirubin, total 0.5 0.1 - 1.2 mg/dL [facility] Protein, pl 7.5 6.5 - 8.5 g/dL [facility] Albumin 4.2 3.5 - 5.0 g/dL [facility] Alk phos 81 40 - 130 Units/L [facility] ALT 108(H) 7 - 45 Units/L [facility] AST 95(H) 10 - 45 Units/L [facility] Blood 08/20/2023 10:4 3 AM PEARL CUTTER 08/20/2023 11:08 AM PEARL CUTTER us Sami Stafford MD LAB BLOOD ORDERABLES Final Re sult [facility] Department of Laboratories [place], [place] [id number] * ECG 12 lead (08/20/2023) us Sami Stafford MD ECG ORDERABLES Edited Result - Final documented in this encounter Visit Diagnoses Diagnosis Paroxysmal atrial fibrillation (CMS/HCC) (HCC)- Primary Atrial fibrillation Chronic heart failure with preserved ejection fraction (CMS/HCC) ([facility]) Apical variant hypertrophic cardiomyopathy (HCC) Coronary artery disease involving klamath coronary artery of klamath heart without angina pectoris Primary hypertension Unspecified essential hypertension NSVT (nonsustained ventricular tachycardia) ([facility]) Therapeutic drug monitoring Encounter for therapeutic drug [...] 10/20/2023 added in this encounter Care Teams Dimension Mill Worker Relationship Specialty Start Date End Date Cristian Ling MD [address] [place] [address] PCP - General 10/16/16 documented as of this encounter
--- OUTSIDE RECORDS SUMMARY | 2024-06-12 04:30 | XMS_ITS | Encounter Summary ---
Author Organization [facility] Address [address] [place] [address] Care Team Providers Care Treer Name Role Phone Cristian Ling MD Primary Care Prov ider Reason for Referral * Diagnostic Imaging (Routine) - Closed Specialty Diagnoses / Procedures Referred By Contac t Referred To Contact Diagnoses Primary osteoarthritis of right hip Right hip pain Procedures FL Fluoro Guided Injection Hip Right Jamari Rodríguez MD [address] [facility] [address] [place] [address] Phone: tel: fax: [address] [phone] Referral ID Status Reason Start Date Expiration Date Visits Re quested Visits Authorized [id number] Closed 04/17/2023 05/16/2024 1 1 OMER SOLUTIONS COORDINATOR Reason for Visit * Diagnostic Imaging (Routine) - Closed Specialty Diagnoses / Procedures Referred By Contac t Referred To Contact Diagnoses Primary osteoarthritis of right hip Right hip pain Procedures FL Fluoro Guided Injection Hip Right Jamari Rodríguez MD [address] [facility] [address] [place] [address] Phone: tel: fax: [address] [phone] Referral ID Status Reason Start Date Expiration Date Visits Re quested Visits Authorized [id number] Closed 04/17/2023 05/16/2024 1 1 Encounter Details Date Type Department Care Team (Latest Contact Info) Description 05/13/2023 11:36 AM CUSTOMER SOLUTIONS COORDINATOR - 05/13/2023 11:59 PM CUSTOMER SOLUTIONS COORDINATOR Hospital Encounter [facility] [address] [place] [address] Leighton Torres MD [address] [facility] [address] [place] [address] Primary osteoarthritis of right hip; Right hip [...] on file Legal Sex Female 7:12 AM CUSTOMER SOLUTIONS COORDINATOR Gender Identity Female 02/07/2021 4:33 PM CDT Sexual Orientation Straight 02/07/2021 4: 33 PM CDT documented as of this encounter Last Filed Vital Signs Vital Sign Reading Time Taken Comments Blood Pressure 175/78 05/13/2023 12:07 PM CUSTOMER SOLUTIONS COORDINATOR pt asymptomatic & has option to take bp at home, agrees to do that & follow up with MD if needed Pulse 65 05/13/2023 12:07 PM CUSTOMER SOLUTIONS COORDINATOR Temperature - - Respiratory Rate 18 05/13/2023 12:0 7 PM CUSTOMER SOLUTIONS COORDINATOR Oxygen Saturation 96% 05/13/2023 12: 07 PM CUSTOMER SOLUTIONS COORDINATOR Inhaled Oxygen Concentration - - Weight - - Height - - Body Mass Index - - documented in this encounter Discharge Instructions * Patient Instructions* Leighton Torres MD - 05/13/2023 11:40 AM CUSTOMER SOLUTIONS COORDINATOR Post Procedure Instructions You received a steroid [...] those with type 1 diabetes. Check fasting (template maker prior to first meal of the day) [...] concerns after hours, call our exchange at [phone]. For all other questions regarding the procedure, please call our office at [phone]. Pain Diary Please fill out the pain diary chart below and call or message via Tellja the medical provider whorequested the injection, Dr. [...] weeks after? 0% 20% 50% 80% 100% OMER SOLUTIONS COORDINATOR documented in this encounter Medications at Time [...] AM CST Right Fluoroscopically-Guided Hip Joint Injection [facility] Department of Orthopedic Surgery Division of Physical [...] the entire procedure above. Leighton Torres MD OMER SOLUTIONS COORDINATOR documented in this encounter Plan of Treatment Not on file documented as of this encounter Procedures Procedure Name Priority Date/Time Associated Diagnosis Comments FLUORO GUIDED INJECTION HIP RIGHT Schedule Routine, Read Routine (OP Routine) 05/13/2023 12:04 PM CUSTOMER SOLUTIONS COORDINATOR Primary osteoarthritis of right hip Right hip pain documented in this encounter Results * FL Fluoro Guided Injection Hip Right (05/13/2023 12:04 PM CUSTOMER SOLUTIONS COORDINATOR) Narrative [id number] - 05/13/2023 12:04 PM CUSTOMER SOLUTIONS COORDINATOR The images from this study are not [...] at 1159, Intra-Op Given 05/13/2023 11:59 AM CUSTOMER SOLUTIONS COORDINATOR 0.5 mL lidocaine PF (XYLOCAINE) 10 mg/mL (1 %) preservative free injection As needed, Starting on Fri05/13/23 at 1159, Intra-Op Given 05/13/2023 11:59 AM CUSTOMER SOLUTIONS COORDINATOR 4 mL ROPivacaine (NAROPIN) 2 mg/mL (0.2 %) preservative free injection As needed, Starting on Fri05/13/23 at 1202, Intra-Op Given 05/13/2023 12:02 PM CUSTOMER SOLUTIONS COORDINATOR 3 mL triamcinolone (KENALOG) 40 mg/mL injection As needed, Starting on Fri05/13/23 at 1202, Intra-Op Given 05/13/2023 12:02 PM CUSTOMER SOLUTIONS COORDINATOR 40 mg documented in this encounter Additional Health Concerns Infection Onset Date Last Indicated Resolved Time MRSA Comment:IP Review- Patient has documentation of cultures positive for MRSA from outside facility on 02/12. Isolation flag placed for this reason. Please contact IP for any questions or concerns. 02/18/23 12:07 PM Lena Mccoy 02/18/2023 02/18/2023 4 3:05 AM CUSTOMER SOLUTIONS COORDINATOR documented as of this encounter Care Teams Treer Relationship Specialty Start Date End Date Cristian Ling MD [address] [place] [address] PCP - General 10/16/16 documented as of this encounter
--- OUTSIDE RECORDS SUMMARY | 2024-06-12 04:30 | XMS_ITS | Encounter Summary ---
Author Organization [facility] Address [address] [place] [address] Phone Care Team Providers Care Violin Teacher Name Role Phone Cristian Ling MD Primary Care Prov ider Encounter Details Date Type Department Care Team (Late st Contact Info) Description 10/03/2023 Telephone [facility] Orthopaedic Surgery [address] [facility] [address] [place] [address] Vidya Grace LPN Social History [...] on file Legal Sex Female 7:12 AM INSULATION WORKER FURNACE INSTALLER Gender Identity Female 02/07/2021 4:33 PM [...] on filedocumented in this encounter Care Teams Violin Teacher Relationship Specialty Start Date End Date Cristian Ling MD [address] [place] [address] PCP - General 10/16/16 documented as of this encounter
--- OUTSIDE RECORDS SUMMARY | 2024-06-12 04:30 | XMS_ITS | Encounter Summary ---
Author Organization [facility] Address [address] [place] [address] Phone Care Team Providers Care Linux Developer Name Role Phone Cristian Ling MD Primary Care Prov ider Encounter Details Date Type Department Care Team (Late st Contact Info) Description 05/23/2023 Telephone [facility] Cardiology [address] [facility] 8th [place] [address] [place] [address] Sami Stafford MD [address] [facility] [address] [place], [place] [id number] Social History Tobacco Use Types Packs/Day Years [...] on file Legal Sex Female 7:12 AM INFORMATICS NURSE SPECIALIST Gender Identity Female 02/07/2021 4:33 PM CDT Sexual Orientation Straight 02/07/2021 4: 33 PM CDT documented as of this encounter Miscellaneous Notes * Telephone Encounter - Sami Stafford MD - 05/23/2023 3:53 PM CST agree RMATICS NURSE SPECIALIST * Telephone Encounter - Sheila Solomon RN - 05/23/2023 11:51 AM INFORMATICS NURSE SPECIALIST Spoke with pt. She called to discuss [...] thoughts, would relay. Pt appreciative of call. RMATICS NURSE SPECIALIST * Telephone Encounter - Sheila Solomon RN - 05/23/2023 10:18 AM INFORMATICS NURSE SPECIALIST LMOR for pt to return call. RMATICS NURSE SPECIALIST * Telephone Encounter - Ella Diggs - 05/23/2023 9:08 AM CST Rivera Pt is calling in regards to speaking to a nurse about some concerns. RMATICS NURSE SPECIALIST documented in this encounter Plan of [...] Lena Mccoy 02/18/2023 02/18/2023 4 3:05 AM INFORMATICS NURSE SPECIALIST documented as of this encounter Care Teams Linux Developer Relationship Specialty Start Date End Date Cristian Ling MD [address] [place] [address] PCP - General 10/16/16 documented as of this encounter
--- OUTSIDE RECORDS SUMMARY | 2024-06-12 04:30 | XMS_ITS | Encounter Summary ---
Author Organization [facility] Address [address] [place] [address] Care Team Providers Care Polymerization Supervisor Name Role Phone Cristian Ling MD Primary Care Prov ider Encounter Details Date Type Department Care Team (Late st Contact Info) Description 2023 Orders Only [facility] Cardiology [address] [place] [address] Yaneli Perry MD [address] [address] Social History Tobacco Use Types [...] on file Legal Sex Female 7:12 AM RV BODY MECHANIC Gender Identity Female 02/07/2021 4:33 PM [...] Lena Mccoy 02/18/2023 02/18/2023 4 3:05 AM RV BODY MECHANIC documented as of this encounter Care Teams Polymerization Supervisor Relationship Specialty Start Date End Date Cristian Ling MD [address] [place] [address] PCP - General 10/16/16 documented as of this encounter
--- OUTSIDE RECORDS SUMMARY | 2024-06-12 04:30 | XMS_ITS | Encounter Summary ---
Author Organization [facility] Address [address] [place] [address] Care Team Providers Care Transmission System Operator Name Role Phone Cristian Ling MD Primary Care Prov ider Belinda Quigley DURAL MECHANIC Unavailable [phone] Encounter Details Date Type Department Care Team (Late st Contact Info) Description 04/15/2023 Orders Only [facility] Health Information Management [address] [place] [address] Scanning, Provider Social History Tobacco Use Types Packs/Day Years Used Date Smoking Tobacco: Never Passive Smoke Exposure: Current Smokeless Tobacco: Never [facility] Utilities Answer Date Recorded In the past 12 months has e electric, gas, oil, or water [employer] threatened to shut off services in your [...] How often do you attend confucianist or jew serv ices? Never 12/04/2023 Do [...] staff should administer the PHQ-9) 0 09/28/2020 [facility] - Occupational Stress Questionnaire Answer Date [...] any time in the past 12 m [facility], were you homeless or living [...] on file Legal Sex Female 7:12 AM REPAIR ORDER CLERK Gender Identity Female 02/07/2021 4:33 PM [...] Mccoy 02/18/2023 02/18/2023 03/03/202 4 3:05 AM REPAIR ORDER CLERK C. difficile suspected 11/24/2023 11/25/202311/24 10:38 AM CDT COVID: Suspected 12/07/2023 12/07/2023 12/07/2023 5:54 PM CDT documented as of this encounter Care Teams Transmission System Operator Relationship Specialty Start Date End Date Cristian Ling MD [address] [place] [address] PCP - General 10/16/16 Belinda Quigley, SERG [address] [facility] ([facility]) Mailstop [phone] [place] [address] SHOP Outpatient Cytologist 12/04/23 12/30/23 documented as of this encounter
--- OUTSIDE RECORDS SUMMARY | 2024-06-12 04:30 | XMS_ITS | Encounter Summary ---
Author Organization [facility] Address [address] [place] [address] Phone Care Team Providers Care Warehouse Coordinator Name Role Phone Cristian Ling MD Primary Care Prov ider Encounter Details Date Type Department Care Team (Late st Contact Info) Description 04/17/2023 Telephone [facility] Orthopaedic Surgery [address] [facility] [address] Office [address] [place] [address] Jamari Rodríguez MD [address] [facility] [address] [place] [address] Social History Tobacco Use Types [...] on file Legal Sex Female 7:12 AM DRAWER IN HAND Gender Identity Female 02/07/2021 4:33 PM CDT [...] Lena Mccoy 02/18/2023 02/18/2023 4 3:05 AM DRAWER IN HAND documented as of this encounter Care Teams Warehouse Coordinator Relationship Specialty Start Date End Date Cristian Ling MD [address] [place] [address] PCP - General 10/16/16 documented as of this encounter
--- OUTSIDE RECORDS SUMMARY | 2024-06-12 04:30 | XMS_ITS | Encounter Summary ---
Author Organization [facility] Address [address] [place] [address] Care Team Providers Care Broke Beater Operator Name Role Phone Cristian Ling MD Primary Care Prov ider Encounter Details Date Type Department Care Team (Late st Contact Info) Description 04/28/2023 Orders Only [facility] Cardiology [address] [place] [address] Yaneli Perry MD [address] [address] Social History Tobacco Use Types [...] on file Legal Sex Female 7:12 AM GRANULIZING MACHINE OPERATOR Gender Identity Female 02/07/2021 4:33 PM CDT Sexual Orientation Straight 02/07/2021 4: 33 PM CDT documented as of this encounter Plan of Treatment Not on file documented as of this encounter Procedures Procedure Name Priority Date/Time Associated Diagnosis Comments CARDIOLOGY DOCUMENT SCAN Routine 04/23/2023 9:15 AM GRANULIZING MACHINE OPERATOR documented in this encounter Results * Cardiology Document Scan (04/23/2023 9:15 AM GRANULIZING MACHINE OPERATOR) Anatomical Region Laterality Modality Other [facility] Pratima Perry MD CV CARDIAC SERVICES PRO [...] Lena Mccoy 02/18/2023 02/18/2023 4 3:05 AM GRANULIZING MACHINE OPERATOR documented as of this encounter Care Teams Broke Beater Operator Relationship Specialty Start Date End Date Cristian Ling MD [address] [place] [address] PCP - General 10/16/16 documented as of this encounter
--- OUTSIDE RECORDS SUMMARY | 2024-06-12 04:30 | XMS_ITS | Encounter Summary ---
Author Organization [facility] Address [address] [place] [address] Phone Care Team Providers Care Platform Inspector Name Role Phone Cirstian Ling MD Primary Care Prov ider Encounter Details Date Type Department Care Team (Late st Contact Info) Description 09/03/2023 Telephone [facility] Cardiology [address] [facility] 8th [place] [address] [place] [address] Sami Stafford MD [address] [facility] [address] [place], [place] [id number] Social History Tobacco Use Types Packs/Day Years [...] on file Legal Sex Female 7:12 AM PIG FURNACE OPERATOR Gender Identity Female 02/07/2021 4:33 PM [...] on filedocumented in this encounter Care Teams Platform Inspector Relationship Specialty Start Date End Date Cristian Ling MD [address] [place] [address] PCP - General 10/16/16 documented as of this encounter
--- OUTSIDE RECORDS SUMMARY | 2024-06-12 04:30 | XMS_ITS | Encounter Summary ---
Author Organization [facility] Address [address] [place] [address] Phone Care Team Providers Care Group Burner Machine Name Role Phone Cristian Ling MD Primary Care Prov ider Encounter Details Date Type Department Care Team (Late st Contact Info) Description 04/23/2023 Telephone [facility] Orthopaedic Surgery [address] [facility] Medical Office Building [address] [place] [address] Kristian Garcia RN Social History [...] on file Legal Sex Female 7:12 AM CAREER PROFESSIONAL Gender Identity Female 02/07/2021 4:33 PM CDT Sexual Orientation Straight 02/07/2021 4: 33 PM CDT documented as of this encounter Miscellaneous Notes * Telephone Encounter - Kristian Garcia RN - 04/23/2023 10:28 AM CAREER PROFESSIONAL Received call from patient's son (Storm) stating that patient will not be making it in to her injection appointment today due to being hospitalized at [facility]. Injection appointment cancelled. Storm has phone to call and reschedule appointment. ER PROFESSIONAL documented in this encounter Plan of Treatment [...] Lena Mccoy 02/18/2023 02/18/2023 4 3:05 AM CAREER PROFESSIONAL documented as of this encounter Care Teams Group Burner Machine Relationship Specialty Start Date End Date Cristian Ling MD [address] [place] [address] PCP - General 10/16/16 documented as of this encounter
--- OUTSIDE RECORDS SUMMARY | 2024-06-12 04:30 | XMS_ITS | Encounter Summary ---
Author Organization [facility] Address [address] [place] [address] Phone Care Team Providers Care Operations Representative Name Role Phone Cristian Ling MD Primary Care Prov ider Encounter Details Date Type Department Care Team (Late st Contact Info) Description 10/07/2023 Orders Only [facility] Hematology [address] [facility] Advanced Medicine 7th [place] [address] [place] [address] Jody Foley Iron deficiency anemia [...] on file Legal Sex Female 7:12 AM ABORIGINAL LIAISON OFFICER Gender Identity Female 02/07/2021 4:33 PM [...] 10/07/2023 documented in this encounter Care Teams Operations Representative Relationship Specialty Start Date End Date Cristian Ling MD [address] [place] [address] PCP - General 10/16/16 documented as of this encounter
--- OUTSIDE RECORDS SUMMARY | 2024-06-12 04:30 | XMS_ITS | Encounter Summary ---
Author Organization [facility] Address [address] [place] [address] Phone Care Team Providers Care Plc Controls Engineer Name Role Phone Cristian Ling MD Primary Care Prov ider Reason for Visit * Reason Onset Date Comments ROV 08/20/23, lab results, recommendations 024 Encounter Details Date Type Department Care Team (Late st Contact Info) Description 08/20/2023 Telephone [facility] Cardiology [address] [facility] Advanced Medicine 8th [place] [address] [place] [address] Sami Stafford MD [address] [facility] [address] [place], [place] [id number] ROV 08/20/23, lab results, recommendations Social History [...] on file Legal Sex Female 7:12 AM OFFICIAL GREETER Gender Identity Female 02/07/2021 4:33 PM CDT [...] were not included. Sheila Pacheco RN P [facility] Repeat LFT's due ~09/22/23 after reducing amio. Results? Attempted to contact pt to remind her of lab work, no answer, no VM box set up. * Addendum Note - Sheila Pacheco RN - 08/21/2023 1:57 PM CSTAddended by: SHEILA PACHECO on: 08/21/2023 01:57 PM Modules accepted: Orders CIAL GREETER * Telephone Encounter - Sheila Pacheco RN - 08/21/2023 1:55 PM OFFICIAL GREETER Spoke with pt to relay lab results, recs. She requested I mail her a letter with information. Letter sent. Repeat labs sent to [facility] per pt request. Decreased dose of amio sent to preferred pharmacy.Will watch for results. CIAL GREETER * Telephone Encounter - Sheila Pacheco RN - 08/20/2023 4:04 PM OFFICIAL GREETER Attempted to contact pt to relay results. No answer, VM box full. Will call again tomorrow. CIAL GREETER * Telephone Encounter - Sheila Pacheco RN - 08/20/2023 3:37 PM OFFICIAL GREETER Images from the original note were not included. Per Dr. Stafford, lab results 08/20/23: Sami Stafford MD P [facility] Card Clinical Pool Potassium is 5.0, high normal. [...] stable, hgb 8.4. - lipids are acceptable. CIAL GREETER documented in this encounter Plan of Treatment [...] documented as of this encounter Care Teams Plc Controls Engineer Relationship Specialty Start Date End Date Cristian Ling MD [address] [place] [address] PCP - General 10/16/16 documented as of this encounter
--- OUTSIDE RECORDS SUMMARY | 2024-06-12 04:30 | XMS_ITS | Encounter Summary ---
Author Organization [facility] Address [address] [place] [address] Phone Care Team Providers Care Real Estate Marketing Coordinator Name Role Phone Cristian Ling MD Primary Care Prov ider Reason for Referral * Diagnostic Imaging (Routine) - Closed Specialty Diagnoses / Procedures Referred By Contac t Referred To Contact Diagnoses Primary osteoarthritis of right hip Right hip pain Procedures [place] Fluoro Guided Injection Hip Right Jamari Rodríguez MD [address] [address] [place] [address] Phone: tel: fax: [facility] 1 [place] [address] Referral ID Status Reason Start Date Expiration Date Visits Re quested Visits Authorized [id number] Closed 04/17/2023 05/16/2024 1 1 Encounter Details Date Type Department Care Team (Late st Contact Info) Description 04/17/2023 Orders Only [facility] Orthopaedic Surgery [address] [facility] Medical Office Building [address] [place] [address] Jamari Rodríguez MD [address] [facility] [address] [place] [address] Primary osteoarthritis of right hip [...] file Legal Sex Female 7:12 AM RV DETAILER Gender Identity Female 02/07/2021 4:33 PM CDT Sexual Orientation Straight 02/07/2021 4: 33 PM CDT documented as of this encounter Plan of Treatment Not on file documented as of this encounter Results * FL Fluoro Guided Injection Hip Right (05/13/2023 12:04 PM RV DETAILER) Narrative [facility] - 05/13/2023 12:04 PM RV DETAILER The images from this study are not [...] PM Lena Mccoy 02/18/2023 02/18/2023 3:05 AM RV DETAILER documented as of this encounter Care Teams Real Estate Marketing Coordinator Relationship Specialty Start Date End Date Cristian Ling MD [address] [place] [address] PCP - General 10/16/16 documented as of this encounter
--- OUTSIDE RECORDS SUMMARY | 2024-06-12 04:30 | XMS_ITS | Encounter Summary ---
Author Organization [facility] Address [address] [place] [address] Phone Care Team Providers Care Celery Packer Name Role Phone Cristian Ling MD Primary Care Prov ider Encounter Details Date Type Department Care Team (Late st Contact Info) Description 04/17/2023 Telephone [facility] Orthopaedic Surgery [address] [facility] Medical Office Building [address] [place] [address] Kristian Garcia RN Social History [...] file Legal Sex Female 7:12 AM INSURANCE VERIFICATION SPECIALIST Gender Identity Female 02/07/2021 4:33 PM CDT Sexual Orientation Straight 02/07/2021 4: 33 PM CDT documented as of this encounter Miscellaneous Notes * Telephone Encounter - Kristian Garcia RN - 04/17/2023 2:15 PM CDT Procedure Pre-Screening Assessment Procedure: Fluoro Guided Injection Hip Right Date: 04/23/2023 Time: 8:20 am arrive at 7:50 am Provider: Dr. Briseno Location: [facility] Orth[facility]ics / [address] [address], [place] [address] Will you receive any vaccinations including the [...] instructions to hold medication prior to procedure Basket Braider: Not Applicable If patient requires an oil transport driver, do let radiology scheduling ([phone]) know at the time of scheduling and they will schedule the oil transport driver for patient Are you on oxygen or have a tracheostomy? (Patients on supplemental oxygen or with current tracheostomy cannot be scheduled at [facility]) No Diabetic: No Not Applicable Confirm patient's insurance: Yes Essemce What is patient's BMI (Maximum BMI at [facility] is 45) 28.46 Have you had conservative treatment for your pain? N/A Patient instructed to come with a short haul driver?: Yes Patient with commercial insurance or those with Medicare receiving Facet injection informed that ifprocedure is not approved by 3 pm the day prior, it will be rescheduled?: Yes Provided Pre-Procedure Instructions including arrival time: Yes My Chart email: [email or web address] Does the ordering provider's note have a [...] Lena Badilloon 02/18/2023 02/18/2023 4 3:05 AM INSURANCE VERIFICATION SPECIALIST documented as of this encounter Care Teams Celery Packer Relationship Specialty Start Date End Date Cristian Ling MD [address] [place] [address] PCP - General 10/16/16 documented as of this encounter
--- OUTSIDE RECORDS SUMMARY | 2024-06-12 04:30 | XMS_ITS | Encounter Summary ---
Author Organization [facility] Address [address] [place] [address] Phone Care Team Providers Care Quality Improvement Analyst Name Role Phone Cristian Ling MD Primary Care Prov ider Encounter Details Date Type Department Care Team (Late st Contact Info) Description 04/16/2023 Orders Only [facility] Orthopaedic Surgery [address] [facility] 2nd Floor [address] [place] [address] Jamari Rodríguez MD [address] [facility] [address] [address] [place], [place] [id number] Social History Tobacco Use Types Packs/Day Years [...] file Legal Sex Female 7:12 AM SALES COORDINATOR Gender Identity Female 02/07/2021 4:33 PM [...] Lena Badilloon 02/18/2023 02/18/2023 4 3:05 AM SALES COORDINATOR documented as of this encounter Care Teams Quality Improvement Analyst Relationship Specialty Start Date End Date Cristian Ling MD [address] [place] [address] PCP - General 10/16/16 documented as of this encounter
--- OUTSIDE RECORDS SUMMARY | 2024-06-12 04:30 | XMS_ITS | Encounter Summary ---
Author Organization [facility] Healthcare Address [address] [place] [address] Care Team Providers Care Cobbler Upper Name Role Phone Cristian Ling MD Primary Care Prov ider Encounter Details Date Type Department Care Team (Late st Contact Info) Description 04/21/2023 Orders Only [facility] Medical Group Cardiology [address] [place] [address] Archie Orellana MD [address] [id number] Social History Tobacco Use Types Packs/Day Years [...] on file Legal Sex Female 7:12 AM PRINT SHOP HELPER Gender Identity Female 02/07/2021 4:33 PM [...] Lena Mccoy 02/18/2023 02/18/2023 4 3:05 AM PRINT SHOP HELPER documented as of this encounter Care Teams Cobbler Upper Relationship Specialty Start Date End Date Cristian Ling MD [address] [place] [address] PCP - General 10/16/16 documented as of this encounter
--- OUTSIDE RECORDS SUMMARY | 2024-06-12 04:30 | XMS_ITS | Encounter Summary ---
Author Organization [facility] Address [address] [place] [address] Phone Care Team Providers Care Public Health Technologist Name Role Phone Cristian Ling MD Primary Care Prov ider Encounter Details Date Type Department Care Team (Late st Contact Info) Description 05/23/2023 Telephone [facility] Cardiology [address] [facility] Advanced [facility] 8th [place] [address] [place] [address] Sami Stafford MD [address] [facility] [address] [place], [place] [id number] Social History Tobacco Use Types Packs/Day Years [...] on file Legal Sex Female 7:12 AM KEEPER HEAD Gender Identity Female 02/07/2021 4:33 PM CDT Sexual Orientation Straight 02/07/2021 4: 33 PM CDT documented as of this encounter Miscellaneous Notes * Telephone Encounter - Sheila Solomon RN - 05/23/2023 11:48 AM KEEPER HEAD See alt enc. ER HEAD * Telephone Encounter - Mary Jarquin - 05/23/2023 11:32 AM CST Rivera Pt returning Sheila's call. ER HEAD documented in this encounter Plan of Treatment [...] PM Lena Mccoy 02/18/2023 02/18/2023 3:05 AM KEEPER HEAD documented as of this encounter Care Teams Public Health Technologist Relationship Specialty Start Date End Date Cristian Ling MD [address] [place] [address] PCP - General 10/16/16 documented as of this encounter
--- OUTSIDE RECORDS SUMMARY | 2024-06-12 04:31 | XMS_ITS | Encounter Summary ---
Author Organization [facility] Address [address] [place] [address] Phone Care Team Providers Care Dinkey Dispatcher Name Role Phone Cristian Ling MD Primary Care Prov ider Reason for Visit * Consultation (Urgent) - Closed Specialty Diagnoses / Procedures Referred By Contac t Referred To Contact Orthopedic Surgery Diagnoses Wrist fracture, closed, right, sequela David Shaw MD [address] [address] Phone: tel: fax: [facility] (All Locations) Referral ID Status Reason Start Date Expiration Date V isits Requested Visits Authorized [id number] Closed Specialty Services Required 04/10/2023 04/11/2024 12 12 Encounter Details Date Type Department Care Team (Late st Contact Info) Description 04/11/2023 9:30 AM CDT Office Visit [facility] Orthopaedic Surgery [address] [facility] 2nd Floor [address] [place] [address] David Shaw MD [address] [place] [address] Right wrist pain (Primary Dx); Wrist fracture, [...] on file Legal Sex Female 7:12 AM SCRUBBER OPERATOR Gender Identity Female 02/07/2021 4:33 PM [...] History of blood clots (1960s), History of MD (myocardial infarction) (2012), History of vertebral fracture [...] needed. Michelle lady. David Shaw M.D., MSc, [facility](C) Professor [facility] Orthopedics documented in this encounter Plan [...] Lena Mccoy 02/18/2023 02/18/2023 4 3:05 AM SCRUBBER OPERATOR documented as of this encounter Care Teams Dinkey Dispatcher Relationship Specialty Start Date End Date Cristian Ling MD [address] [place] [address] PCP - General 10/16/16 documented as of this encounter
--- OUTSIDE RECORDS SUMMARY | 2024-06-12 04:31 | XMS_ITS | Encounter Summary ---
Author Organization [facility] Healthcare Address [address] [place] [address] Care Team Providers Care Linux Solaris Administrator Name Role Phone Cristian Ling MD Primary Care Prov ider Encounter Details Date Type Department Care Team (Latest Contact Info) Description 04/11/2023 10:15 AM CDT - 04/11/2023 11:59 PM CDT Hospital Encounter [facility] [address] [place] [address] Right wrist pain Discharge Disposition: Discharge to [...] on file Legal Sex Female 7:12 AM PRODUCTION SKI REPAIRER Gender Identity Female 02/07/2021 4:33 PM CDT [...] PM Lena Mccoy 02/18/2023 02/18/2023 3:05 AM PRODUCTION SKI REPAIRER documented as of this encounter Care Teams Linux Solaris Administrator Relationship Specialty Start Date End Date Cristian Ling MD [address] [place] [address] PCP - General 10/16/16 documented as of this encounter
--- OUTSIDE RECORDS SUMMARY | 2024-06-12 04:32 | XMS_ITS | Encounter Summary ---
Author Organization [facility] Healthcare Address [address] [place] [address] Care Team Providers Care Poultry Feed Supervisor Name Role Phone Cristian Ling MD Primary Care Prov ider Reason for Visit * Auth/Cert (Routine) Specialty Diagnoses / Procedures Referred By Contdeepali t Referred To Contact Diagnoses Atrial fibrillation, unspecified type (HCC) Atrial fibrillation, unspecified type (HCC) [I48.91] Procedures MD CARDIOVERSION ELECTIVE ARRHYTHMIA EXTERNAL CARDIOVERSION [id number] Referral ID Status Reason Start Date Expiration Date Visits Re quested Visits Authorized [id number] 1 1 Encounter Details Date Type Department Care Team (Late st Contact Info) Description 01/20/2023 9:20 AM CDT - 01/20/2023 10:10 AM CDT Surgery [facility] [address] [place] [address] Kel Arteaga MD PhD [address] [address] CARDIOVERSION [id number] Surgery Details Date/Time Status Location OR Service Patient Class Case Class Case Type Trauma Case? 01/20/2023 9:20 AM Posted [facility] CARDIAC AUCTION CLERK CCL COVERSTITCH ELASTIC ATTACHER Bedside Cardiovascular Outpatient Elective Panel 1 Procedure LRB Anes Op Region Wound Class Comments CARDIOVERSION 20501 N/A Choice Surgeon Surgeon Role Service Panel [...] file Legal Sex Female 7:12 AM COLLECTIONS ATTORNEY Gender Identity Female 02/07/2021 4:33 PM CDT [...] M-F call our Outpatient Nurse Coordinators at [phone]. If you need to speak to someone after 5pm please call [facility] at [phone] and ask the dinkey engine operator to page the Cardiac Pickling Operator Fellow international nurse. documented in this encounter Medications at Time [...] release tabletIndications: Paroxysmal atrial fibrillation with RVR ([facility]) Take 1 tablet (50 mg total) by [...] at least 4 weeks. Directions given to [facility] parking, [employer] parking garage, and to [facility]. documented in this encounter H&P Notes * Kel Arteaga MD PhD - 01/20/2023 7:36 AM CDT I have reviewed the H&P, examined the patient, and endorse the findings as written. Plan of Care : Based on the above findings, I consider Tiera Lobato to be an acceptable riskfor : Procedure(s): CARDIOVERSION 11911 Source Note - Sami Stafford MD - 01/13/2023 10:30 AM CDT Images from the original note were not included. Department of Medicine Sami Stafford MD, MPHS, [facility] Cardiovascular Division finance administrator Patient Name: Tiera Lobato : 1945 Date [...] 4 ) Wt 85.7 kg (189 lb) IcQ112% BMI 32.44 kg/m?? BP Readings from Last [...] HCM with an echo. CAD with prior NV and CABG in 2012 ([facility], [facility]). She had a recent admission at [facility] 03/2022 with chest pain/shortness of breath. [...] or concerns. Sincerely, Sami Stafford MD, MPHS, [facility] finance administrator Cardiovascular Division [facility] in [facility] --- Please note: This note was generated in part using voice-recognition software and may contain trimming assembler errors. documented in this encounter Nursing Notes [...] discharged per MD order via wheelchair to [facility] to meet son for ride home. documented in this encounter Miscellaneous Notes * Post-Procedure Note - Kel Arteaga MD PhD - 01/20/2023 9:00 AM CDT CARDIOVERSION 62181 PRE-OP DIAGNOSIS: Atrial fibrillation [employer] SALES CONSULTANT: Kel Arteaga MD PhD. REFERRING MD: Damian [...] procedure. Narrative 01/24/2023 11:53 AM CDT CARDIOVERSION 98319 PRE-OP DIAGNOSIS: ??Atrial fibrillation [employer] SALES CONSULTANT: Kel Arteaga MD PhD. REFERRING MD: ??Damian [...] Chemistries, Arterial - (01/20/2023 8:15 AM CDT) [facility] K POC 3.9 3.3 - 4.9 mmol/L [facility] Comment: Interpretive Data This method is not able to assess for hemolysis, which may falsely increase potassium concentrations. If further testing is needed to evaluate this result, consider in-laboratory plasma potassium. Current Interpretive Data was last revised on 2022. Blood 01/20/2023 8:15 AM CDT 01/20/2023 8:15 AM CDT us Kel Arteaga MD PhD LAB POCT ORDERABLES - D EVICE Final Result [facility] Department [place] [address] * ECG 12 lead (01/20/2023 7:41 AM CDT) [facility] Ventricular Rate EKG/Min [address] [facility] QRS-Interval (MSEC) [address] [facility] QT-Interval (MSEC) [address] [facility] QTc 482 ms [facility] R [place] 19 degrees [facility] T [place] 178 degrees [facility] Diagnosis Atrial fibrillation with rapid ventricular response ST & T wave abnormality, consider inferolateral ischemia Long QTc When compared with ECG of 11-SEP-2012 18:58, Atrial fibrillation is present Rate has increased by 55 bpm T wave abnormalities now more marked in lateral leads Confirmed by SERVANDO GARCIA M.D ([id number]) on 01/20/2023 5:26:38 PM [facility] 01/20/2023 7:41 AM CDT 01/20/2023 5:26 PM CDT us Niecy Faith NP ECG ORDERABLES Final Result [facility] documented in this encounter Visit Diagnoses [...] 01/20/2023 documented in this encounter Care Teams Poultry Feed Supervisor Relationship Specialty Start Date End Date Cristian Ling MD [address] [place] [address] PCP - General 10/16/16 documented as of this encounter
--- OUTSIDE RECORDS SUMMARY | 2024-06-12 04:32 | XMS_ITS | Encounter Summary ---
Author Organization [facility] Healthcare Address [address] [place] [address] Care Team Providers Care Rn Pediatric Icu Name Role Phone Cristian Ling MD Primary Care Prov ider Encounter Details Date Type Department Care Team (Late st Contact Info) Description 03/17/2023 Documentation Critical Care Medicine Prachi Maloney MD [address] [phone] Social History Tobacco Use Types Packs/Day Years [...] file Legal Sex Female 7:12 AM GEOTHERMAL POWERPLANT SUPERVISOR Gender Identity Female 02/07/2021 4:33 PM [...] Lena Mccoy 02/18/2023 02/18/2023 4 3:05 AM GEOTHERMAL POWERPLANT SUPERVISOR documented as of this encounter Care Teams Rn Pediatric Icu Relationship Specialty Start Date End Date Cristian Ling MD [address] [place] [address] PCP - General 10/16/16 documented as of this encounter
--- OUTSIDE RECORDS SUMMARY | 2024-06-12 04:32 | XMS_ITS | Encounter Summary ---
Author Organization [facility] Healthcare Address [address] [place] [address] Care Team Providers Care Production Quality Analyst Name Role Phone Cristian Ling MD Primary Care Prov ider Reason for Visit * Reason Onset Date Comments Follow-up 01/21/2023 Encounter Details Date Type Department Care Team (Late st Contact Info) Description 01/21/2023 Telephone [facility] [address] [place] [address] Prachi Kline MD [address] [place] [address] Follow-up Social History Tobacco Use [...] on file Legal Sex Female 7:12 AM POT ROOM TAPPER Gender Identity Female 02/07/2021 4:33 PM CDT [...] on filedocumented in this encounter Care Teams Production Quality Analyst Relationship Specialty Start Date End Date Cristian Ling MD [address] [place] [address] PCP - General 10/16/16 documented as of this encounter
--- OUTSIDE RECORDS SUMMARY | 2024-06-12 04:32 | XMS_ITS | Encounter Summary ---
Author Organization [facility] Address [address] [place] [address] Phone Care Team Providers Care Painter And Paperhanger Apprentice Name Role Phone Cristian Ling MD Primary Care Prov ider Encounter Details Date Type Department Care Team (Late st Contact Info) Description 01/10/2023 Telephone [facility] Cardiology [address] [facility] 8th [place] [address] [place] [address] Sami Stafford MD [address] [facility] [address] [place], [place] [id number] Social History Tobacco Use Types Packs/Day Years [...] on file Legal Sex Female 7:12 AM BOAT TENDER Gender Identity Female 02/07/2021 4:33 PM [...] on filedocumented in this encounter Care Teams Painter And Paperhanger Apprentice Relationship Specialty Start Date End Date Cristian Ling MD [address] [place] [address] PCP - General 10/16/16 documented as of this encounter
--- OUTSIDE RECORDS SUMMARY | 2024-06-12 04:32 | XMS_ITS | Encounter Summary ---
Author Organization [facility] Address [address] [place] [address] Care Team Providers Care Quality Compliance Manager Name Role Phone Cristian Ling MD Primary Care Prov ider Reason for Visit * Auth/Cert (Routine) Specialty Diagnoses / Procedures Referred By Paula t Referred To Contact Diagnoses Atrial fibrillation, unspecified type (HCC) Atrial fibrillation, unspecified type (HCC) [I48.91] Procedures [place] CARDIOVERSION ELECTIVE ARRHYTHMIA EXTERNAL CARDIOVERSION 13395 Referral ID Status Reason Start Date Expiration Date Visits Re quested Visits Authorized [id number] 1 1 Encounter Details Date Type Department Care Team (Latest Contact Info) Description 01/20/2023 7:08 AM CDT - 01/20/2023 9:50 AM CDT Hospital Encounter [facility] [address] [place] [id number] Rima AlvesGeophysical Data TechnicianMD [address] [place], [place] [id number] Kel Arteaga MD PhD [address] [phone] Atrial fibrillation (CMS/HCC) (HCC) [I48.91 (ICD-10-CM)] (Primary [...] on file Legal Sex Female 7:12 AM GRADING SUPERVISOR Gender Identity Female 02/07/2021 4:33 PM [...] encounter Discharge Instructions * Discharge Instructions* [place] Matt[place] RN - 01/20/2023 9:23 AM CDT [...] M-F call our Outpatient Nurse Coordinators at [phone]. If you need to speak to someone after 5pm please call [facility] at [phone] and ask the grinder operator to page the Cardiac Electric Meter Repairer Helper Fellow correctional food service supervisor. documented in this encounter Medications at Time [...] release tabletIndications: Paroxysmal atrial fibrillation with RVR (FORM[facility]) Take 1 tablet (50 mg total) by [...] at least 4 weeks. Directions given to [facility], [facility], and to [facility]. documented in this encounter H&P Notes * Kel Arteaga MD PhD - 01/20/2023 7:36 AM CDT I have reviewed the H&P, examined the patient, and endorse the findings as written. Plan of Care : Based on the above findings, I consider Tiera Lobato to be an acceptable riskfor : Procedure(s): CARDIOVERSION 95422 Source Note - Sami Stafford MD - 01/13/2023 10:30 AM CDT Images from the original note were not included. Department of Medicine Sami Stafford MD, MPHS, [facility] Cardiovascular Division housekeeping room attendant Patient Name: Tiera Lobato : 1945 Date [...] 4 ) Wt 85.7 kg (189 lb) EnO115% BMI 32.44 kg/m?? BP Readings from Last [...] in I, aVL, V3-6, normal axis, normal [place], QRS and QT intervals. 30-day monitor 05/2022 [...] HCM with an echo. CAD with prior PR and CABG in 2012 ([facility], [facility]). She had a recent admission at [facility] 03/2022 with chest pain/shortness of [...] or concerns. Sincerely, Sami Stafford MD, MPHS, [facility] housekeeping room attendant Cardiovascular Division [facility] in [facility] --- Please note: This note was generated in part using voice-recognition software and may contain breaker engineer errors. documented in this encounter Nursing Notes [...] discharged per MD order via wheelchair to [facility] to meet son for ride home. documented in this encounter Miscellaneous Notes * Post-Procedure Note - Kel Arteaga MD PhD - 01/20/2023 9:00 AM CDT CARDIOVERSION 57014 PRE-OP DIAGNOSIS: Atrial fibrillation INSPECTOR WEIGHTS AND MEASURES: Kel Arteaga MD PhD. REFERRING MD: Damian [...] procedure. Narrative 01/24/2023 11:53 AM CDT CARDIOVERSION 02930 PRE-OP DIAGNOSIS: ??Atrial fibrillation INSPECTOR WEIGHTS AND MEASURES: Kel Arteaga MD PhD. REFERRING MD: ??Damian [...] Chemistries, Arterial - (01/20/2023 8:15 AM CDT) [facility] K POC 3.9 3.3 - 4.9 mmol/L [facility] Comment: Interpretive Data This method is not able to assess for hemolysis, which may falsely increase potassium concentrations. If further testing is needed to evaluate this result, consider in-laboratory plasma potassium. Current Interpretive Data was last revised on 2022. Blood 01/20/2023 8:15 AM CDT 01/20/2023 8:15 AM CDT us Kel Arteaga MD PhD LAB POCT ORDERABLES - D EVICE Final Result [facility] Department [place] [address] * ECG 12 lead (01/20/2023 7:41 AM CDT) [facility] Ventricular Rate EKG/Min 114 BPM [facility] QRS-Interval (MSEC) [address] [facility] QT-Interval (MSEC) [address] [facility] QTc [address] [facility] R [place] [address] [facility] T [place] [address] [facility] Diagnosis Atrial fibrillation with rapid ventricular response ST & T wave abnormality, consider inferolateral ischemia Long QTc When compared with ECG of 11-SEP-2012 18:58, Atrial fibrillation is present Rate has increased by 55 bpm T wave abnormalities now more marked in lateral leads Confirmed by SERVANDO GARCIA M.D ([id number]) on 01/20/2023 5:26:38 PM [facility] 01/20/2023 7:41 AM CDT 01/20/2023 5:26 PM CDT us Niecy Faith NP ECG ORDERABLES Final Result [facility] [employer] [facility] documented in this encounter Visit Diagnoses Diagnosis [...] 01/20/2023 documented in this encounter Care Teams Quality Compliance Manager Relationship Specialty Start Date End Date Cristian Ling MD [address] [place] [address] PCP - General 10/16/16 documented as of this encounter
--- OUTSIDE RECORDS SUMMARY | 2024-06-12 04:32 | XMS_ITS | Encounter Summary ---
Author Organization [facility] Healthcare Address [address] [place] [address] Care Team Providers Care Environmental Services Associate Name Role Phone Cristian Ling MD Primary Care Prov ider Reason for Visit * Auth/Cert (Routine) Specialty Diagnoses / Procedures Referred By Contac t Referred To Contact Diagnoses A-fib (CMS/HCC) (HCC) A-FIB WITH RVR, LEFT ARM CELLULITIS Procedures N/A Referral ID Status Reason Start Date Expiration Date Visits Re quested Visits Authorized [id number] 1 1 Encounter Details Date Type Department Care Team (Late st Contact Info) Description 02/25/2023 12:58 PM CDT Anesthesia Event [facility] [address] [place] [address] Nallely Spring MD [address] [place] [address] Ayse Valladares CRNA [address] [place] [address] Anesthesia Record Procedure Summary Procedure Name Responsible [...] on file Legal Sex Female 7:12 AM MAIL ORDER SORTER Gender Identity Female 02/07/2021 4:33 PM CDT Sexual Orientation Straight 02/07/2021 4: 33 PM CDT documented as of this encounter OR Notes * Anesthesia Postprocedure Evaluation - Ayse Valladares CRNA - 02/25/2023 1:53 PM CDT Patient: Tiera Lobato Procedure Summary Date: 02/25/23 Room / Location: [facility] Anesthesia Start: 1258 [...] Problem List Diagnosis Coronary artery disease involving [place] coronary artery of [place] heart without angina pectoris Hx of CABG Hypertension History of ND (myocardial infarction) Lumbar stenosis with neurogenic claudication Other osteoporosis without current pathological fracture Right hip pain Apical variant hypertrophic cardiomyopathy (HCC) Paroxysmal atrial fibrillation (CMS/HCC) (HCC) Atrial fibrillation (CMS/HCC) (HCC) A-fib (CMS/HCC) (HCC) Past Medical History: Diagnosis Date Acid reflux Heart murmur High cholesterol History of blood clots 1960s in leg as teenager - had phlebitis History of ND (myocardial infarction) 2012 History of vertebral fracture 2017 HTN (hypertension) IBS (irritable bowel syndrome) Vertigo Past Surgical History: Procedure Laterality Date COLON SURGERY 1992 Repair burst colon CORONARY ARTERY BYPASS GRAFT 2012 Double by-pass - [facility] FLUORO GUIDED INJECTION HIP RIGHT Right 05/16/2022 FLUORO GUIDED INJECTION HIP RIGHT Right 08/15/2022 FLUORO GUIDED INJECTION HIP RIGHT Right 12/10/[address] James ([place], [place]) TOTAL KNEE ARTHROPLASTY Right 2018 OB [...] Medication protocol when under care of a MANUFACTURING MANAGER Planned anesthesia: MAC Induction: Induction: intravenous. Informed [...] Lena Mccoy 02/18/2023 02/18/2023 4 3:05 AM MAIL ORDER SORTER documented as of this encounter Care Teams Environmental Services Associate Relationship Specialty Start Date End Date Cristian Ling MD [address] [place] [address] PCP - General 10/16/16 documented as of this encounter
--- OUTSIDE RECORDS SUMMARY | 2024-06-12 04:32 | XMS_ITS | Encounter Summary ---
Author Organization [facility] Address [address] [place] [address] Phone Care Team Providers Care Salvager Name Role Phone Cristian Ling MD Primary Care Prov ider Encounter Details Date Type Department Care Team (Late st Contact Info) Description 02/11/2023 Telephone [facility] Cardiology [address] [facility] 8th [place] [address] [place] [address] Sami Stafford MD [address] [facility] [address] [place], [place] [id number] Social History Tobacco Use Types Packs/Day Years [...] on file Legal Sex Female 7:12 AM [place] BOATMAN Gender Identity Female 02/07/2021 4:33 PM CDT Sexual Orientation Straight 02/07/2021 4: 33 PM CDT documented as of this encounter Miscellaneous Notes * Telephone Encounter - Sheila Solomon, [place] - 02/11/2023 1:38 PM CDT Spoke with pt's son. Pt was admitted to [facility] last week, discharged last week. This AM, METAL FABRICATOR APPRENTICE [facility] and her BP was 80/40. Pt was dizzy and EMS was called. She is at [facility] ER, they have initiated transfer to [place]. Pt's son just wanted to let us know what was going on/see if we had any input or recs. I told him we defer to ER doctors if they feel that pt needs higher level of care, agree she shold come to [facility]. I told him I would update Dr. Stafford on plan of care. He was appreciative. * Telephone Encounter - Yara Espinosa - 02/11/2023 10:44 AM CDT [place] Pt's son calling to speak with a nurse in regards to the pt being currently admitted to [facility] in [place], [place]. documented in this encounter Plan of Treatment Not on file documented as of this encounter Visit Diagnoses Not on filedocumented in this encounter Care Teams Salvager Relationship Specialty Start Date End Date Cristian Ling MD [address] [place] [address] PCP - General 10/16/16 documented as of this encounter
--- OUTSIDE RECORDS SUMMARY | 2024-06-12 04:32 | XMS_ITS | Encounter Summary ---
Author Organization [facility] Healthcare Address [address] [place] [address] Care Team Providers Care Sheet Rock Finisher Name Role Phone Cristian Ling MD Primary Care Prov ider Reason for Visit * Auth/Cert (Routine) Specialty Diagnoses / Procedures Referred By Contac t Referred To Contact Diagnoses A-fib (CMS/HCC) (HCC) A-FIB WITH RVR, LEFT ARM CELLULITIS Procedures N/A Referral ID Status Reason Start Date Expiration Date Visits Re quested Visits Authorized [id number] 1 1 Encounter Details Date Type Department Care Team (Latest Contact Info) Description 02/17/2023 5:03 PM CDT - 03/21/2023 3:10 PM CDT Hospital Encounter [facility] [address] [place] [address] Franca Echevarria, DO [address] [place] [address] Estella Ellis MD PhD [address] [place] [address] Jose Roberto Santos MD PhD [address] [facility] [address] [place] [address] Benjamín Mancuso MD [address] [facility] [address] [place] [address] Gordon Huang MD [address] [facility] [address] [place] [address] Paroxysmal atrial fibrillation (CMS/HCC) (HCC) (Primary Dx); [...] file Legal 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 She had recently been discharged from [facility] 5 days prior (02/06) after treatment of [...] complicated by hemodynamic instability, she was transferred [facility] for possible ablation. She follows with Dr. [...] Will need to reschedule office visit w/ MECHANICAL MAINTENANCE ENGINEER Harpreet Ravi at Dr. Stafford's office planned [...] avoid anticholinergic agents #HTN #HLD #CAD c/b NC s/p CABG #apical HCM No indication for [...] In process Operative Procedures Performed: Procedure(s): CARDIOVERSION 95578 Other Procedures: None Pertinent Test Results: HOOD [...] to call and reschedule your visit with workday consultant nurse practitioner Harpreet Mora works with Dr. Stafford. You will get a call from the Orthopedic Department to schedule an appointment to manage your right arm fracture. If you do not receive a call try Please call your primary care provider, Cristian Ling MD [phone], to schedule apost-hospital visit within the next [...] Emergency Room. Contact Infectious Diseases Clinic: Toll-free: [phone] Hospital ID Doctor: Fara Cardenas [facility] Infectious Diseases Offices [facility] [address] [place] [address], [address] [place] [address] Patient parking available [facility] of [facility] Other Instructions Event Monitor Please forward the results to Dr. Sami Stafford and PILO Ravi. Thank you Choose duration of testin Days Please select the performing department: [facility] Discharge Medications: Current Medications TAKE these medications [...] with the resident/fellow. Gordon Huang MD, MSCI, [facility], FICOS Director, Cardio-Oncology Fellowship Director, [facility] Co-Director, [facility] Division of Cardiology [facility] Office: [phone] Pager: [phone] documented in this encounter Discharge Instructions * [...] to call and reschedule your visit with workday consultant nurse practitioner Harpreet Mora works with Dr. Stafford. You will get a call from the Orthopedic Department to schedule an appointment to manage your right arm fracture. If you do not receive a call try Please call your primary care provider, Cristian Ling MD [phone], to schedule apost-hospital visit within the next [...] Emergency Room. Contact Infectious Diseases Clinic: Toll-free: [phone] Hospital ID Doctor: Fara Cardenas [facility] Infectious Diseases Offices [facility] [address] [facility], [address] [place] [address] Patient parking available [facility] of [facility] * Attachments The following attachments cannot be sent through Care Everywhere. * A-fib (Atrial Fibrillation) (AfterCare(R) Instructions(ER/ED)) (S[place] Arabian) * Amiodarone (By mouth) ([place]) documented in this encounter Medications at Time [...] Departure Means Destination Comment s Discharge to [facility] documented in this encounter Progress Notes * Baylee Burkett RN - 03/21/2023 2:51 PM CDT 03/21/23 1000 Discharge Summary Chart reviewed For Medical Necessity Does patient have a planned readmission to hospital planned? No Discharge Disposition jail facility Specify Facility [facility] Contact Number [phone]/fax [phone] Discharge Records Transfer Form Completed;Chart Copied Equipment/Provider Needs No Home Needs Identified Discharge Additional Assistance Does the patient need discharge transport arranged? Yes Has discharge transport been arranged? Yes Details of Transportation [facility] - trip# [id number] D/C Transport Anticipated Date 03/21/23 D/C Transport [...] at this time. Patient has been acceptedto [facility]. CM spoke with the patient/family, admissions, medical team, and RN regarding discharge planning, and all are agreeable to discharge. DC Summary faxed to [phone]. Post-acute care transfer packet completed and will be sent with the patient. RN provided with report number to nurses station [phone]. Room # 626B provided by facility. Mode [...] to placement today despite shared concerns that long-term afib control has been challenging as well [...] of pAF, Apical variant HCM, CAD with NC in 2012 s/p CABG with [facility]SON to [...] Will need to reschedule office visit w/ MECHANICAL MAINTENANCE ENGINEER Harpreet Ravi at Dr. Stafford's office planned [...] avoid anticholinergic agents #HTN #HLD #CAD c/b NC s/p CABG #apical HCM No indication for [...] DVT Prophylaxis: Eliquis Diet: 2g Na Dispo: [facility] Te Baker MD PhD Internal Medicine PGY-1 [...] Fellowship Director, Card[facility]cology [facility] Excellence Co-Director, [facility] Division of Cardiology [facility] Office: [phone] Pager: [phone] * Ira Brittney William, OT - 03/20/2023 [...] not assigned to this patient, please call [phone]. 03/20/23 1132 General Session Type Treatment OT [...] treatment team and contact the PT or HUMAN SERVICES ASSISTANT currently assigned to this patient. If a physical therapy clinician is not assigned to this patient, please call [phone]. 03/20/23 1008 PT Last Visit Session Type [...] of pAF, Apical variant HCM, CAD with NC in 2013 s/p CABG with [facility] to [...] Will need to reschedule office visit w/ MECHANICAL MAINTENANCE ENGINEER Harpreet Ravi at Dr. Stafford's office planned [...] avoid anticholinergic agents #HTN #HLD #CAD c/b NC s/p CABG #apical HCM No indication for [...] Fellowship Director, [facility] Co-Director, [facility] Division of Cardiology [facility] Office: [phone] Pager: [phone] * Storm Bach - 03/19/2023 4:11 PM CDT Spiritual Care Note Dilshad Isreal [phone] 03/19/23 1600 Time Spent Start Time 1115 [...] with finding purpose;Explore cultural values;Offer emotional support;Offer spiritual/holiness support;Reminiscing * Mikal Barrow MD - 03/19/2023 [...] of pAF, Apical variant HCM, CAD with NC in 2013 s/p CABG with [facility]SON to [...] w/ eGFR 25). - Scheduled to see MECHANICAL MAINTENANCE ENGINEER Harpreet Ravi at Dr. Stafford's office on [...] avoid anticholinergic agents #HTN #HLD #CAD c/b NC s/p CABG #apical HCM No indication for [...] DVT Prophylaxis: Eliquis Diet: 2g Na Dispo: [facility] Mikal Barrow MD Internal Medicine PGY-2 03/19/2023 [...] with the resident/fellow. Gordon Huang MD, MSCI, [facility], FICOS Director, Cardio-Oncology Fellowship Director, [facility] Co-Director, [facility] Division of Cardiology [facility] Office: [phone] Pager: [phone] * Viky Kraus, TIFFANY - 03/18/2023 11:35 AM CDT NUTRITION ASSESSMENT Nutrition Status: Patient at risk for malnutrition, but does not meet ASPEN criteria for malnutrition. REASON FOR ASSESSMENT: Follow Up Encounter Date: 03/18/23 11:35 AM Admission Date: 02/17/2023 LOS: 29 days HPI: Patient is a 77 y.o. female with a PMH of pAF, Apical variant HCM, CAD with NC in 2012 s/p CABG with [facility]SON to [...] as teenager - had phlebitis History of NC (myocardial infarction) 2012 History of vertebral fracture 2018 HTN (hypertension) IBS (irritable bowel syndrome) Vertigo Past Surgical History: Procedure Laterality Date COLON SURGERY 1992 Repair burst colon CORONARY ARTERY BYPASS GRAFT 2012 Double by-pass - [facility] FLUORO GUIDED INJECTION HIP RIGHT Right 05/16/2022 FLUORO GUIDED INJECTION HIP RIGHT Right 08/15/2022 FLUORO GUIDED INJECTION HIP RIGHT Right 12/10/[address] James ([place], [place]) TOTAL KNEE ARTHROPLASTY Right 2018 Social [...] 5* 6 CREATININE mg/dL 1.19* 1.23* 1.42* [id number] mL/min/1.73 m2 47* 46* 38* CALCIUM mg/dL [...] Type of Weight Used for Estimated Kcals: [place] Total Protein Estimated Needs (gm): 65.28 Protein Needs Based on g/k.2 Type of Weight Used for Estimated Protein : [place] Dietary Orders (From admission, onward) Start Ordered 03/14/23 1700 Oral Nutrition Supplements Select Supplement: Ayse Bikanta 1.0 - Chocolate All Meals Question: Select Supplement: Answer: Ayse Farms 1.0 - Chocolate 03/14/23 1413 02/26/23 1250 Adult Diet Restricted; 2 GM Sodium Diet effective now Question Answer Comment ([facility]) Diet type Restricted Fat / Sodium Restriction: 2 GM Sodium 02/26/23 1250 Allergies: Reviewed. Pt states she has an allergy to dairy and will get sick if she consumes it. IMPRESSION: Pt complains of low Na diet, has many foods that cause stomach upset. Reports she vomited Ayse Bikanta supplement. Declined other ONS. States she thinks [...] PO intake, Hydration status, I/O * Suki Franicsco DPT - 03/18/2023 9:47 AM CDT Physical [...] treatment team and contact the PT or HUMAN SERVICES ASSISTANT currently assigned to this patient. If a physical therapy clinician is not assigned to this patient, please call [phone]. 03/18/23 0947 PT Last Visit Session Type [...] of pAF, Apical variant HCM, CAD with NC in 2012 s/p CABG with [facility]SON to [...] avoid anticholinergic agents #HTN #HLD #CAD c/b NC s/p CABG #apical HCM No indication for [...] DVT Prophylaxis: Eliquis Diet: 2g Na Dispo: [facility] tomorrow Te Baker MD PhD Internal Medicine [...] Fellowship Director, Card[facility]-Oncology [facility] Co-Director, [facility] Division of Cardiology [facility] Office: [phone] Pager: [phone] * Archie Ann OT - 03/17/2023 2:13 [...] not assigned to this patient, please call [phone]. 03/17/23 1413 General Session Type Treatment OT [...] 03/17/2023 1:24 PM CDT Spiritual Care Note Fur Buyerashley Bach [phone] 03/17/23 1300 Time Spent Start Time 1250 [...] of pAF, Apical variant HCM, CAD with NC in 2013 s/p CABG with [facility]SON to [...] w/ eGFR 25). - Scheduled to see MECHANICAL MAINTENANCE ENGINEER Harpreet Ravi at Dr. Stafford's office on [...] avoid anticholinergic agents #HTN #HLD #CAD c/b NC s/p CABG #apical HCM No indication for [...] [facility] Division of Cardiology [facility] Office: [phone] Pager: [phone] * Te Baker MD - 03/16/2023 6:53 [...] of pAF, Apical variant HCM, CAD with NC in 2012 s/p CABG with [facility]SON to [...] w/ eGFR 25). - Scheduled to see MECHANICAL MAINTENANCE ENGINEER Harpreet Ravi at Dr. Stafford's office on [...] avoid anticholinergic agents #HTN #HLD #CAD c/b NC s/p CABG #apical HCM No indication for [...] floor - appreciate recs. #IBS Current regimen: [id number] - continue Linaclotide #prior DVT Remote, unprovoked. [...] of pAF, Apical variant HCM, CAD with NC in 2012 s/p CABG with [facility] to [...] w/ eGFR 25). - Scheduled to see MECHANICAL MAINTENANCE ENGINEER Harpreet Ravi at Dr. Stafford's office on [...] avoid anticholinergic agents #HTN #HLD #CAD c/b NC s/p CABG #apical HCM No indication for [...] folate 15.3. - CTM #IBS Current regimen: [id number] - continue Linaclotide #prior DVT Remote, unprovoked. [...] of pAF, Apical variant HCM, CAD with NC in 2012 s/p CABG with [facility] to [...] as teenager - had phlebitis History of NC (myocardial infarction) 2012 History of vertebral fracture [...] RIGHT Right 12/10/[address] James ([place], [place]) TOTAL KNEE ARTHROPLASTY Right 2018 Social [...] 9 10 CREATININE mg/dL 1.62* 1.69* 1.88* [id number] mL/min/1.73 m2 33* 31* 27* CALCIUM mg/dL [...] Type of Weight Used for Estimated Kcals: [place] Total Protein Estimated Needs (gm): 65.28 Protein Needs Based on g/k.2 Type of Weight Used for Estimated Protein : [place] Dietary Orders (From admission, onward) Start Ordered 03/14/23 1700 Oral Nutrition Supplements Select Supplement: SAFCell 1.0 - Chocolate All Meals Question: Select Supplement: Answer: SAFCell 1.0 - Chocolate 03/14/23 1413 02/26/23 1250 Adult Diet Restricted; 2 GM Sodium Diet effective now Question Answer Comment ([facility]) Diet type Restricted Fat / Sodium [...] she is allergic to dairy. Order for SAFCell 1.0 chocolate supplement put in with each meal. ASPEN MALNUTRITION ASSESSMENT: Date of completion: 03/14 NUTRITION FOCUSED PHYSICAL EXAM: Completed. Subcutaneous Fat Loss Orbital Region - Surrounding the Eye: Slightly dark circles Cheek Region - Buccal Fat: Full, round filled-out cheeks Muscle Loss [place] Region - Temporalis Muscle: Slight depression Clavicle [...] (lower extremities) Slightly dark circles and slight yarsanism depression possibly age-related NUTRITION DIAGNOSIS: Nutrition Diagnosis [...] treatment team and contact the PT or HUMAN SERVICES ASSISTANT currently assigned to this patient. If a physical therapy clinician is not assigned to this patient, please call [phone]. 03/14/23 4795 PT Last Visit Session Type Treatment PT [...] of pAF, Apical variant HCM, CAD with NC in 2012 s/p CABG with [facility] to [...] avoid anticholinergic agents #HTN #HLD #CAD c/b NC s/p CABG #apical HCM No indication for [...] folate 15.3. - CTM #IBS Current regimen: [id number] - continue Linaclotide #prior DVT Remote, unprovoked. [...] not assigned to this patient, please call [phone]. 03/13/23 3909 General Session Type Treatment OT Received On [...] of pAF, Apical variant HCM, CAD with NC in 2012 s/p CABG with [facility]SON to [...] avoid anticholinergic agents #HTN #HLD #CAD c/b NC s/p CABG #apical HCM No indication for [...] folate 15.3. - CTM #IBS Current regimen: [id number] - continue Linaclotide #prior DVT Remote, unprovoked. [...] review-restricted antimicrobial(s): Ceftaroline A member of the [facility] antimicrobial stewardship program has reviewed the patient's chart including the above DOP-ptkjhv-sieokhcbke antimicrobial(s). Criteria for continued use has been [...] of pAF, Apical variant HCM, CAD with NC in 2013 s/p CABG with [facility] to [...] avoid anticholinergic agents #HTN #HLD #CAD c/b NC s/p CABG #apical HCM No indication for [...] folate 15.3. - CTM #IBS Current regimen: [id number] - continue Linaclotide #prior DVT Remote, unprovoked. [...] CDT Spiritual Care Note Chaplain Dilshad Bach [phone] 03/11/23 1600 Time Spent Start Time 1440 [...] Active listening;Assist with finding purpose;Offer emotional support;Offer spiritual/holiness support * Suki Francisco, PT - 03/11/2023 [...] not assigned to this patient, please call [phone]. 03/11/23 9325 General Session Type Treatment OT Received On [...] of pAF, Apical variant HCM, CAD with NC in 2012 s/p CABG with [facility] to [...] w/ eGFR 25). - Scheduled to see MECHANICAL MAINTENANCE ENGINEER Harpreet Ravi at Dr. Stafford's office on [...] when CLAUDIA resolves #HTN #HLD #CAD c/b NC s/p CABG #apical HCM No indication for [...] folate 15.3. - CTM #IBS Current regimen: [id number] - continue Linaclotide #prior DVT Remote, unprovoked. [...] of pAF, Apical variant HCM, CAD with NC in 2012 s/p CABG with [facility] to [...] as teenager - had phlebitis History of NC (myocardial infarction) 2012 History of vertebral fracture 2018 HTN (hypertension) IBS (irritable bowel syndrome) Vertigo Past Surgical History: Procedure Laterality Date COLON SURGERY 1992 Repair burst colon CORONARY ARTERY BYPASS GRAFT 2012 Double by-pass - [facility] FLUORO GUIDED INJECTION HIP RIGHT Right 05/16/2022 FLUORO GUIDED INJECTION HIP RIGHT Right 08/15/2022 FLUORO GUIDED INJECTION HIP RIGHT Right 12/10/[address] James ([place], [place]) TOTAL KNEE ARTHROPLASTY Right 2018 Social [...] Sodium Diet effective now Question Answer Comment ([facility]) Diet type Restricted Fat / Sodium [...] Weight changes Jenna Soto MS, RD, LD [phone] * Preeti Mena OT - 03/10/2023 10:28 [...] of pAF, Apical variant HCM, CAD with NC in 2012 s/p CABG with [facility] to [...] regimen on 03/16 #HTN #HLD #CAD c/b NC s/p CABG #apical HCM No indication for [...] folate 15.3. - CTM #IBS Current regimen: [id number] - continue Linaclotide #prior DVT Remote, unprovoked. [...] of pAF, Apical variant HCM, CAD with NC in 2012 s/p CABG with [facility]SON to [...] 600mg BID (03/03-03/16) #HTN #HLD #CAD c/b NC s/p CABG #apical HCM No indication for [...] folate 15.3. - CTM #IBS Current regimen: [id number] - continue Linaclotide #prior DVT Remote, unprovoked. [...] of pAF, Apical variant HCM, CAD with NC in 2013 s/p CABG with [facility] to [...] w/ eGFR 25). - Scheduled to see MECHANICAL MAINTENANCE ENGINEER Harpreet Ravi at Dr. Stafford's office on [...] 600mg BID (03/03-03/16) #HTN #HLD #CAD c/b NC s/p CABG #apical HCM No indication for [...] folate 15.3. - CTM #IBS Current regimen: [id number] - continue Linaclotide #prior DVT Remote, unprovoked. [...] from bed to chair. - Vital 100-130/50-70s, [id number]. Positive orthostatics still - Net I/O -730cc [...] of pAF, Apical variant HCM, CAD with NC in 2013 s/p CABG with [facility]SON to [...] 600mg BID (03/03-03/16) #HTN #HLD #CAD c/b NC s/p CABG #apical HCM No indication for [...] folate 15.3. - CTM #IBS Current regimen: [id number] - continue Linaclotide #prior DVT Remote, unprovoked. [...] PGY-1 03/07/2023 2:24 PM Cosigned by Benjamín Mancuso MD at 03/07/2023 6:46 PM CDT Associated [...] treatment team and contact the PT or HUMAN SERVICES ASSISTANT currently assigned to this patient. If a physical therapy clinician is not assigned to this patient, please call [phone]. 03/07/23 0850 PT Last Visit Session Type [...] not assigned to this patient, please call [phone]. 03/06/23 1433 General Session Type Treatment OT Received On [...] from bed to chair. - Vital 90-110/40-50s, [id number] - Net I/O +100cc with incomplete UOP, [...] of pAF, Apical variant HCM, CAD with NC in 2013 s/p CABG with [facility]SON to [...] 600mg BID (03/03-03/16) #HTN #HLD #CAD c/b NC s/p CABG #apical HCM No indication for [...] folate 15.3. - CTM #IBS Current regimen: [id number] - continue Linaclotide #prior DVT Remote, unprovoked. [...] Denied CP, heart palpitation. - Vital 90-11/60-70, [id number] - Net I/O +320cc, wt 170lb from [...] of pAF, Apical variant HCM, CAD with NC in 2013 s/p CABG with [facility] to [...] back in Afib - Scheduled to see MECHANICAL MAINTENANCE ENGINEER Harpreet Ravi at Dr. Stafford's office on [...] 600mg BID (03/03-03/16) #HTN #HLD #CAD c/b NC s/p CABG #apical HCM No indication for [...] daily when CLAUDIA resolves #IBS Current regimen: [id number] - continue Linaclotide #prior DVT Remote, unprovoked. [...] not assigned to this patient, please call [phone]. Multi-Disciplinary Problems (from Occupational Therapy) Active Problems [...] toilet in bathroom with supervision Problem: OT [facility] Start Date: 02/24/23 Goal Start Date Expected End Date End Date OT LTG - [facility] 1 02/24/23 02/28/23 -- Goal Details: Pt [...] of pAF, Apical variant HCM, CAD with NC in 2012 s/p CABG with [facility]SON to [...] 600mg BID (03/03-03/16) #HTN #HLD #CAD c/b NC s/p CABG #apical HCM No indication for [...] daily when CLAUDIA resolves #IBS Current regimen: [id number] - continue Linaclotide #prior DVT Remote, unprovoked. [...] of pAF, Apical variant HCM, CAD with NC in 2013 s/p CABG with [facility]SON to [...] as teenager - had phlebitis History of NC (myocardial infarction) 2012 History of vertebral fracture 2017 HTN (hypertension) IBS (irritable bowel syndrome) Vertigo Past Surgical History: Procedure Laterality Date COLON SURGERY 1992 Repair burst colon CORONARY ARTERY BYPASS GRAFT 2012 Double by-pass - [facility] FLUORO GUIDED INJECTION HIP RIGHT Right 05/16/2022 FLUORO GUIDED INJECTION HIP RIGHT Right 08/15/2022 FLUORO GUIDED INJECTION HIP RIGHT Right 12/10/[address] James ([place], [place]) TOTAL KNEE ARTHROPLASTY Right 2018 Anthropometrics [...] Sodium Diet effective now Question Answer Comment ([facility]) Diet type Restricted Fat / Sodium Restriction: 2 GM Sodium 02/26/23 1250 Assessment / Impression: Pt reports appetite is better, states no N/V/D, bowel movement today and no weight changes. Documented po intakes appear fairly good, continue to follow. Jenna Soto MS, RD, LD [phone] * Suki Francisco, PT - 03/03/2023 9:28 [...] treatment team and contact the PT or HUMAN SERVICES ASSISTANT currently assigned to this patient. If a physical therapy clinician is not assigned to this patient, please call [phone]. 03/03/23 0945 PT Last Visit Session Type Treatment PT [...] of pAF, Apical variant HCM, CAD with NC in 2012 s/p CABG with [facility] to [...] continue until 03/16 #HTN #HLD #CAD c/b NC s/p CABG #apical HCM No indication for [...] 40mg daily starting tomorrow #IBS Current regimen: [id number] - continue Linaclotide #prior DVT Remote, unprovoked. [...] of pAF, Apical variant HCM, CAD with NC in 2013 s/p CABG with [facility]SON to [...] HOLD Metop today - Scheduled to see MECHANICAL MAINTENANCE ENGINEER Harpreet Ravi at Dr. Stafford's office on [...] PO Linezolid 600mg after being discharged from [facility] [place] [facility] until 03/16 #HTN #HLD #CAD c/b NC s/p CABG #apical HCM No indication for [...] at her baseline Cr. #IBS Current regimen: [id number] - continue Linaclotide #prior DVT Remote, unprovoked. [...] an appeal form first thing Friday morning. [employer] won't even be addressing over weekend. Though [...] of pAF, Apical variant HCM, CAD with NC in 2012 s/p CABG with [facility]SON to [...] PO Linezolid 600mg after being discharged from [facility] until 03/16 #HTN #HLD #CAD c/b NC s/p CABG #apical HCM No indication for [...] at her baseline Cr. #IBS Current regimen: [id number] - continue Linaclotide #prior DVT Remote, unprovoked. [...] not assigned to this patient, please call [phone]. 02/28/23 5965 General Session Type Treatment OT Received On [...] LE, might benefit from use of leg journeyman powerhouse operator for R LE bed mobility Transfers Transfer [...] of pAF, Apical variant HCM, CAD with NC in 2013 s/p CABG with [facility]SON to [...] PO Linezolid 600mg after being discharged from [facility] until 03/16 #HTN #HLD #CAD c/b NC s/p CABG #apical HCM No indication for [...] at her baseline Cr. #IBS Current regimen: [id number] - continue Linaclotide #prior DVT Remote, unprovoked. [...] of pAF, Apical variant HCM, CAD with NC in 2013 s/p CABG with LAWSON to [...] - Please ensure follow-up with patient's primary workday consultant, Dr. Stafford in 3-4 weeks #MRSA cellulitis [...] PO Linezolid 600mg after being discharged from [facility]. #HTN #HLD #CAD c/b NC s/p CABG #apical HCM No indication for [...] at her baseline Cr. #IBS Current regimen: [id number] - continue Linaclotide #prior DVT Remote, unprovoked. [...] treatment team and contact the PT or HUMAN SERVICES ASSISTANT currently assigned to this patient. If a physical therapy clinician is not assigned to this patient, please call [phone]. 02/26/23 1425 PT Last Visit Session Type [...] of pAF, Apical variant HCM, CAD with NC in 2012 s/p CABG with [facility]SON to [...] - Please ensure follow-up with patient's primary workday consultant, Dr. Stafford in 3-4 weeks #MRSA cellulitis [...] PICC in place #HTN #HLD #CAD c/b NC s/p CABG #apical HCM No indication for [...] at her baseline Cr. #IBS Current regimen: [id number] - continue Linaclotide #prior DVT Remote, unprovoked. [...] of pAF, Apical variant HCM, CAD with NC in 2012 s/p CABG with LAWSON to [...] PICC in place #HTN #HLD #CAD c/b NC s/p CABG #apical HCM No indication for [...] at her baseline Cr. #IBS Current regimen: [id number] - continue Linaclotide #prior DVT Remote, unprovoked. Chronically on Eliquis. S/p DCCV. Resume Eliquis. #OA #DDD Current regimen: Voltaren gel, gabapentin 600mg QID - Lidocaine patches and APAP as needed, gabapentin 600mg BID - If breakthrough pain, can consider fentanyl patch #osteoporosis Currently on alendronate 70mg qWeekly - CTM, held inpt #GERD Home regimen: omeprazole 20mg - PPI #anxiety/depression - Continue Zoloft Ritika Serraon MD PhD Internal Medicine PGY-1 02/25/2023 6:01 [...] CCU DAILY PROGRESS Patient: Tiera Lobato Room: [id number] Date: 02/25/2023 CCU Attending: Dr. Ellis Summary Statement: Tiera Lobato is a 77 y.o. female with a PMH of pAF, Apical variant HCM, CAD with NC in 2013 s/p CABG with LAWSON to [...] of pAF, Apical variant HCM, CAD with NC in 2012 s/p CABG with LAWSON to [...] -TOV, rich out #HTN #HLD #CAD c/b NC s/p CABG #apical HCM Increased interstitial infiltrates [...] at her baseline Cr #IBS Current regimen: [id number] - continue Linaclotide - CTM #prior DVT [...] Code status: Full Code Contact: Storm Lobato-- [phone] Attending MD to make comment on patient [...] plan with the ICU team and other medical/qm consultant staff. * Santino Amor - 02/24/2023 3:20 PM CDT Fr Santino Amor [phone] 02/24/23 1500 Time Spent Start Time 1130 Stop Time 1140 Time Calculation (min) 10 min Patient Spiritual Assessment Spirituality Assessed Focus of Care Islam Affiliation Islam Spiritual Needs Anointing Clinical Encounter Type Visited With Patient Response Type Routine visit Routine Visit Introduction Reason for visit Sacramental;SMART (stroke team) Sacramental Encounters Sacrament of Sick-Anointing Anointed Outcomes and Progress Aligning care with patient's values Achieved Preserve dignity and respect Achieved Demonstrating care and respect Achieved Interventions Interventions Active listening;Offer spiritual/holiness support;Prayer (Benediction) * Adilia Venegas RD - 02/24/2023 2:32 PM CDT Nutrition Screen Note Pt. Screened for nutritional assessment secondary to LOS. Pt with PMH of pAF, Apical variant HCM, CAD with NC in 2013 s/p CABG with LAWSON to [...] as teenager - had phlebitis History of NC (myocardial infarction) 2012 History of vertebral fracture 2017 HTN (hypertension) IBS (irritable bowel syndrome) Vertigo Past Surgical History: Procedure Laterality Date COLON SURGERY 1992 Repair burst colon CORONARY ARTERY BYPASS GRAFT 2012 Double by-pass - [facility] FLUORO GUIDED INJECTION HIP RIGHT Right 05/16/2022 FLUORO GUIDED INJECTION HIP RIGHT Right 08/15/2022 FLUORO GUIDED INJECTION HIP RIGHT Right 12/10/[address] James ([place], [place]) TOTAL KNEE ARTHROPLASTY Right 2018 Anthropometrics [...] Sodium Diet effective now Question Answer Comment ([facility]) Diet type Restricted Fat / Sodium [...] RD following. Adilia Venegas MS RD LD #[phone] Wt Readings from Last 15 Encounters: 02/24/23 [...] walker Prior Function Prior Function Level of [place]offe[place]: Independent with ADLs, Independent with ambulation, Needs [...] name and address after me: Storm Pruitt [address] [place] [address] Without looking at the clock, tell me [...] treatment team and contact the PT or HUMAN SERVICES ASSISTANT currently assigned to this patient. If a physical therapy clinician is not assigned to this patient, please call [phone]. 02/24/23 1014 PT Last Visit Session Type [...] CCU DAILY PROGRESS Patient: Tiera Lobato Room: [id number] Date: 02/24/2023 CCU Attending: Dr. Ellis Summary Statement: Tiera Lobato is a 77 y.o. female with a PMH of pAF, Apical variant HCM, CAD with NC in 2012 s/p CABG with [facility]SON to [...] of pAF, Apical variant HCM, CAD with NC in 2013 s/p CABG with [facility]SON to [...] -TOV, rich out #HTN #HLD #CAD c/b NC s/p CABG #apical HCM Increased interstitial infiltrates [...] at her baseline Cr #IBS Current regimen: [id number] - continue Linaclotide - CTM #prior DVT [...] Code status: Full Code Contact: Storm Nicollenelikathy-- [phone] Attending MD to make comment on patient [...] plan with the ICU team and other medical/qm consultant staff. * Aleksey Mendez MD - 02/23/2023 6:29 AM CDT CCU DAILY PROGRESS Patient: Tiera Lobato Room: [id number] Date: 02/23/2023 CCU Attending: Dr. Ellis Summary Statement: Tiera Lobato is a 77 y.o. female with a PMH of pAF, Apical variant HCM, CAD with NC in 2012 s/p CABG with LAWSON to [...] TID -02/20 Bcx+ MRSE 1/2 -cardioversion with [employer] TECHNICIAN / anesthesia tomorrow MEDICATIONS Scheduled Meds: Current [...] of pAF, Apical variant HCM, CAD with NC in 2013 s/p CABG with [facility]SON to [...] management of AFib with RVR -cardioversion with [employer] TECHNICIAN / anesthesia tomorrow #MRSA cellulitis #MRSA bacteremia [...] until clear 48hrs #HTN #HLD #CAD c/b NC s/p CABG #apical HCM Increased interstitial infiltrates [...] at her baseline Cr #IBS Current regimen: [id number] - continue Linaclotide - CTM #prior DVT [...] Code status: Full Code Contact: Storm Lobato-- [phone] Attending MD to make comment on patient [...] plan with the ICU team and other medical/qm consultant staff. * Aleksey Mendez MD - 02/22/2023 6:36 AM CDT CCU DAILY PROGRESS Patient: Tiera Lobato Room: [id number] Date: 02/22/2023 CCU Attending: Dr. Ellis SUBJECTIVE Overnight Events: - dig level 1.1. Continued maintenance dose Brief plan: -continue Vanc (end 03/16) -Bcx 02/20 with MRSE in 1/2 bottles -transfer to floor -consider cardioversion with [employer] TECHNICIAN / anesthesia before discharge MEDICATIONS Scheduled Meds: [...] of pAF, Apical variant HCM, CAD with NC in 2013 s/p CABG with LAWSON to [...] of AFib with RVR -consider cardioversion with [employer] D[employer] TECHNICIAN / anesthesia before discharge #MRSA cellulitis #MRSA [...] (02/12 - 03/16) #HTN #HLD #CAD c/b NC s/p CABG #apical HCM Increased interstitial infiltrates [...] at her baseline Cr #IBS Current regimen: [id number] - continue Linaclotide - CTM #prior DVT [...] Code status: Full Code Contact: Storm Lobato-- [phone] Attending MD to make comment on patient [...] plan with the ICU team and other medical/qm consultant staff. * Veronica Stevenson BS - [...] treatment team and contact the PT or HUMAN SERVICES ASSISTANT currently assigned to this patient. If a physical therapy clinician is not assigned to this patient, please call [phone]. 02/21/23 0909 PT Last Visit Session Type [...] CCU DAILY PROGRESS Patient: Tiera Lobato Room: [id number] Date: 02/21/2023 CCU Attending: Dr. Echevarria SUBJECTIVE Overnight Events: - dig level 1.1. [...] Dilshad Mcclendon MD, PHD ASSESSMENT and PLAN Teira Lobato is a 77 y.o. female with a PMH of pAF, Apical variant HCM, CAD with NC in 2013 s/p CABG with LAWSON to [...] hypoTN - FBG net even #CAD with NC #hx CABG #HLD No indication for triple therapy AC/antiplatelet at this time. Lipid panel with LDL 37, A1c 5.4 - atorvastatin 80, Zetia, Plavix -Continue Plavix and AC #HTN Home regimen: lisinopril 10mg - CTM off antiHTNsives given hypotension RESPIRATORY #c/f septic emboli - per ID plan - currently on RA GASTROINTESTINAL #GERD Home regimen: omeprazole 20mg - PPI #IBS Current regimen: [id number] - restarted Linaclotide - CTM RENAL/ #CKD [...] Code status: Full Code Contact: Storm Lobato-- [phone] Attending MD to make comment on patient [...] plan with the ICU team and other medical/qm consultant staff. Franca Echevarria DO, [facility] Branch Lead Division of Cardiology [facility] * Santino Amor - 02/20/2023 6:16 PM CDT Fr Santino Amor [phone] 02/20/23 1800 Time Spent Start Time 1700 Stop Time 1710 Time Calculation (min) 10 min Patient Spiritual Assessment Spirituality Assessed Yes Islam Affiliation Islam Active in Adventism Yes Spiritual Needs Anointing;Communion;Prayer Clinical Encounter Type Visited With Patient and family together Response Type Routine visit Routine Visit Introduction Reason for visit Sacramental;Support Sacramental Encounters Communion Patient wants communion Communion Given Indicator Yes Sacrament of Sick-Anointing Anointed Outcomes and Progress Aligning care with patient's values Achieved Preserve dignity and respect Achieved Demonstrating care and respect Achieved Interventions Interventions Active listening;Offer spiritual/holiness support;Prayer (Benediction) * Mare Shook - 02/20/2023 [...] move Prior Function Prior Function Level of Coffey: Independent with ADLs, Independent functional transfers, Needs [...] CCU DAILY PROGRESS Patient: Tiera Lobato Room: [id number] Date: 02/20/2023 CCU Attending: Dr. Echevarria SUBJECTIVE [...] 1,000 mg 1,000 mg oral Q6H PRN Olipmia Long MD amiodarone in dextrose (NEXTERONE) 360 [...] only and have not been reviewed by [facility]. There will be no report generated by a [facility] Radiologist. XR Outside Reference Result Date: 02/17/2023 These images are for Reference purposes only and have not been reviewed by [facility]. There will be no report generated by a [facility] Radiologist. ASSESSMENT and PLAN Tiera Lobato is a 77 y.o. female with a PMH of pAF, Apical variant HCM, CAD with NC in 2013 s/p CABG with LAWSON to [...] TTE - FBG net even #CAD with NC #hx CABG #HLD - lipid panel with [...] omeprazole 20mg - PPI #IBS Current regimen: [id number] - hold linaclotide for diarrhea - CTM. [...] plan with the ICU team and other medical/qm consultant staff. Franca Echevarria DO, [facility] Branch Lead Division of Cardiology [facility] * Tisha Moore, PT - 02/19/2023 2:23 PM CDT Physical Therapy 02/19/23 1310 General PT Missed Visit Reason MD/RN Hold (RN hold due to PICC placement,) Recommendation/Plan PT - Next Appointment 02/20/23 * Olimpia Long MD - 02/19/2023 6:35 AM CDT CCU DAILY PROGRESS Patient: Tiera Lobato Room: [id number] Date: 02/19/2023 CCU Attending: Dr. Echevarria SUBJECTIVE [...] only and have not been reviewed by [facility]. There will be no report generated by a [facility] Radiologist. XR Outside Reference Result Date: 02/17/2023 These images are for Reference purposes only and have not been reviewed by [facility]. There will be no report generated by a [facility] Radiologist. ASSESSMENT and PLAN Tiera Lobato is a 77 y.o. female with a PMH of pAF, Apical variant HCM, CAD with NC in 2013 s/p CABG with LAWSON to [...] Lasix 20mg with FBG -1L #CAD with NC #hx CABG #HLD - lipid panel with [...] omeprazole 20mg - PPI #IBS Current regimen: [id number] - hold linaclotide for diarrhea RENAL/ #CKD [...] plan with the ICU team and other medical/qm consultant staff. Franca Echevarria DO, [facility] Branch Lead Division of Cardiology [facility] * Tisha Moore, PT - 02/18/2023 7:19 AM CDT Physical Therapy 02/18/23 0719 General PT Missed Visit Reason Bedrest;Other (comment) (SBR orders, recent admit pending EP consult.) Recommendation/Plan PT Frequency during current admission Monitor status PT - Next Appointment 02/19/23 * Olimpia Long MD - 02/18/2023 6:16 AM CDT CCU DAILY PROGRESS Patient: Tiera Lobato Room: [id number] Date: 02/18/2023 CCU Attending: Dr. Echevarria SUBJECTIVE [...] Olimpia Long MD 5 mg at 02/17/23 1609 sertraline (ZOLOFT) tablet 50 mg 50 mg [...] only and have not been reviewed by [facility]. There will be no report generated by a [facility] Radiologist. XR Outside Reference Result Date: 02/17/2023 These images are for Reference purposes only and have not been reviewed by [facility]. There will be no report generated by a [facility] Radiologist. ASSESSMENT and PLAN Tiera Lobato is a 77 y.o. female with a PMH of pAF, Apical variant HCM, CAD with NC in 2013 s/p CABG with LAWSON to [...] clinical signs of fluid overload #CAD with NC #hx CABG #HLD - lipid panel with [...] omeprazole 20mg - PPI #IBS Current regimen: [id number] - hold linaclotide for diarrhea RENAL/ #CKD [...] plan with the ICU team and other medical/qm consultant staff. Franca Echevarria DO, [facility] Branch Lead Division of Cardiology [facility] documented in this [...] History and Physical Patient: Tiera Lobato Room: [id number] Date: 02/17/2023 Primary Care Physician: Cristian Ling MD CCU Attending: Franca Echevarria DO Reason for CCU Admission: AFib with RVR c/b hypotension SUBJECTIVE Patient is a 77 y.o. female with a PMH of pAF, Apical variant HCM, CAD with NC in 2013 s/p CABG with LAWSON to [...] the hospital. She hadrecently been discharged from [facility] 5 days prior (02/06) after treatment of [...] by hemodynamic instability, she was transferred to [facility] for possible ablation. She follows with Dr. [...] as teenager - had phlebitis History of NC (myocardial infarction) 2012 History of vertebral fracture 2017 HTN (hypertension) IBS (irritable bowel syndrome) Vertigo PAST SURGICAL HISTORY Past Surgical History: Procedure Laterality Date COLON SURGERY 1992 Repair burst colon CORONARY ARTERY BYPASS GRAFT 2012 Double by-pass - [facility] FLUORO GUIDED INJECTION HIP RIGHT Right 05/16/2022 FLUORO GUIDED INJECTION HIP RIGHT Right 08/15/2022 FLUORO GUIDED INJECTION HIP RIGHT Right 12/10/[address] James ([place], [place]) TOTAL KNEE ARTHROPLASTY Right 2018 ALLERGIES [...] of pAF, Apical variant HCM, CAD with NC in 2013 s/p CABG with LAWSON to [...] clinical signs of fluid overload #CAD with NC #hx CABG #HLD - lipid panel, A1c - continued risk factor modification - atorvastatin 80, Zetia - Plavix iso possible ablation #HTN Home regimen: lisinopril 10mg - CTM off antiHTN given hypotension RESPIRATORY #c/f multifocal PNA - plan as below - currently on RA GASTROINTESTINAL #GERD Home regimen: omeprazole 20mg - PPI #IBS Current regimen: [id number] - continue RENAL/ #CLAUDIA on CKD 3a [...] CCU History and Physical Patient: Tiera Filemon [facility] Room: [id number] Date: 02/17/2023 Primary Care Physician: Cristian Ling MD CCU Attending: Franca Echevarria DO Reason for CCU Admission: AFib with RVR c/b hypotension SUBJECTIVE Patient is a 77 y.o. female with a PMH of pAF, Apical variant HCM, CAD with NC in 2012 s/p CABG with LAWSON to [...] the hospital. She hadrecently been discharged from [facility] 5 days prior (02/06) after treatment of [...] by hemodynamic instability, she was transferred to [facility] for possible ablation. She follows with Dr. [...] as teenager - had phlebitis History of NC (myocardial infarction) 2012 History of vertebral fracture 2017 HTN (hypertension) IBS (irritable bowel syndrome) Vertigo PAST SURGICAL HISTORY Past Surgical History: Procedure Laterality Date COLON SURGERY 1992 Repair burst colon CORONARY ARTERY BYPASS GRAFT 2012 Double by-pass - [facility] FLUORO GUIDED INJECTION HIP RIGHT Right 05/16/2022 FLUORO GUIDED INJECTION HIP RIGHT Right 08/15/2022 FLUORO GUIDED INJECTION HIP RIGHT Right 12/10/[address] James ([place], [place]) TOTAL KNEE ARTHROPLASTY Right 2018 ALLERGIES [...] of pAF, Apical variant HCM, CAD with NC in 2013 s/p CABG with [facility]SON to [...] clinical signs of fluid overload #CAD with NC #hx CABG #HLD - lipid panel, A1c - continued risk factor modification - atorvastatin 80, Zetia - Plavix iso possible ablation #HTN Home regimen: lisinopril 10mg - CTM off antiHTN given hypotension RESPIRATORY #c/f multifocal PNA - plan as below - currently on RA GASTROINTESTINAL #GERD Home regimen: omeprazole 20mg - PPI #IBS Current regimen: [id number] - continue RENAL/ #CLAUDIA on CKD 3a [...] plan with the ICU team and other medical/qm consultant staff. Franca Echevarria DO, FACC Branch Lead Division of Cardiology [facility] documented in this encounter Procedure [...] Information form/Consent Obtained from POA/ Family N [facility] N -FS Is there an order from Renal giving ok to place PICC line? N/A - N/A -FS Are there any location restrictions? [facility] Y -FS Which location is NOT accessible for line placement? Right - Right Pt. has casted right arm. - Reason location not accessible for line placement -- CAST - Other (comment) Right arm cast. -FS Does the patient have history of DVT or SVC syndrome? N - N -FS Does the patient currently have blood clots in chest / arms? [facility] N - Review of all IV meds/drips completed Yes - Yes - Patient allergies reviewed? [facility] Y -FS Labs Reviewed if applicable INR;Blood Cultures;Platelet count;Creatinine - INR;Blood Cultures;Platelet count;Creatinine - Procedures Line Type PICC [facility] - -- Time in 1400 - 1025 - Time out 1440 [facility] -- Time Calculation (min) 40 min - -- Vascular Access Procedures PICC line assessment;PICC line placement;PICC dressing change;Education PICC/[facility] - PICC line assessment;Consult Pt.'s left [...] locate and cannulate vein - Lot #: [id number] - Expiration Date: 03/15/23 - Trimmed Length (cm) : 44 cm - Line Tip Location : Central - Initial Extremity Circumference (cm): 37 cm - Circumference Reference Point: 3 - Placement Verification: Blood return;Ultrasound -, NEED STAT PCXR FOR PICC PLACEMENT Line Secured by : Securement device - Inserted by: Filemon Mann Assisted By: Filemon Mann Insertion attempts: 1 - Patient Tolerance: [...] of pAF, Apical variant HCM, CAD with NC in 2012 s/p CABG with LAWSON to [...] 5 days after a discharge from the [facility] upon receiving treatment for a right radial [...] as teenager - had phlebitis History of NC (myocardial infarction) 2012 History of vertebral fracture 2017 HTN (hypertension) IBS (irritable bowel syndrome) Vertigo Past Surgical History: Procedure Laterality Date COLON SURGERY 1992 Repair burst colon CORONARY ARTERY BYPASS GRAFT 2012 Double by-pass - [facility] FLUORO GUIDED INJECTION HIP RIGHT Right 05/16/2022 FLUORO GUIDED INJECTION HIP RIGHT Right 08/15/2022 FLUORO GUIDED INJECTION HIP RIGHT Right 12/10/[address] James ([place], [place]) TOTAL KNEE ARTHROPLASTY Right 2018 No [...] of pAF, Apical variant HCM, CAD with NC in 2013 s/p CABG with LAWSON to [...] I reviewed records from [facility] & [facility]. I independently interpreted test: CT scan and [...] of pAF, Apical variant HCM, CAD with NC in 2012 s/p CABG with LAWSON to [...] had n/v/dizziness/headache on 03/05 while on PO [id number] BID with positive orthostatic hypotension. She was [...] as teenager - had phlebitis History of NC (myocardial infarction) 2012 History of vertebral fracture 2017 HTN (hypertension) IBS (irritable bowel syndrome) Vertigo Past Surgical History: Procedure Laterality Date COLON SURGERY 1992 Repair burst colon CORONARY ARTERY BYPASS GRAFT 2012 Double by-pass - [facility] FLUORO GUIDED INJECTION HIP RIGHT Right 05/16/2022 FLUORO GUIDED INJECTION HIP RIGHT Right 08/15/2022 FLUORO GUIDED INJECTION HIP RIGHT Right 12/10/[address] James ([place], [place]) TOTAL KNEE ARTHROPLASTY Right 2018 FAMILY [...] rightward gaze. Skew deviation negative. [place] and [place]-hallpike maneuver performed without triggering of symptoms. Lab/Radiology/Diagnostic [...] of pAF, Apical variant HCM, CAD with NC in 2012 s/p CABG with LAWSON to [...] the interim, please contact neurology consults at [phone] (senior) and specify that this consult was [...] no acute findings. Justyna Macedo MD, MSCE Autopsy Pathologist of Neurology Storm Donoh[facility] Department of Neurology [facility] [place] * Heidi Chapa MD - 02/21/2023 1:50 PM CDTAssociated Order(s): IP CONSULT TO TRAUMA SURGERY [facility] Acute Care Surgery Consultation Encounter Date: 02/21/23 Patient Identification Patient's Primary Care Physician: Cristian Ling MD Name: Tiera Lobato Age: 77 y.o. Sex: female Physician requesting Consult: Franca Echevarria* Reason for Consultation: left forearm cellulitis with suspected fluid collection . Assessment & Plan: Tiera Lobato is a 77 y.o. female with a PMHx of pAF, CAD with NC in 2012 s/p CABG with LAWSON to LAD and SVG to OM, HTN, DDD,diverticulitis, vertigo, prior DVT, OA who presents as an OSH transfer for AFib with RVR with assc hemodynamic instability, PNA and left forearm cellulitis due to IV infiltration and MRSA positive blood cultures. Patient transferred to [facility] for higher level care. ACCS consulted for [...] PhD at 2pm (time). Please call the [facility] Inpatient Consult Phone with any questions or concerns regarding this patient. Heidi Chapa MD Resident Physician General Surgery [facility] Inpatient Consult ACCS ED Consult [facility] Outpatient Clinic - option 1 _ Patient information was obtained from patient. History/Exam limitations: none. Chief Complaint Left forearm cellulitis History of Present Illness: Tiera Lobato is a 77 y.o. female with a PMHx of pAF, CAD with NC in 2013 s/p CABG with LAWSON to LAD and SVG to OM, HTN, DDD,diverticulitis, vertigo, prior DVT, OA who presents as an OSH transfer for AFib with RVR with assc hemodynamic instability, PNA and left forearm cellulitis with MRSA positive blood cultures. Patient transferred to [facility] for higher level care. ACCS consulted for worsening left forearm cellulitis despite IV abx suspicious for underlying abscess. Past Medical: Past Medical History: Diagnosis Date Acid reflux Heart murmur High cholesterol History of blood clots 1960s in leg as teenager - had phlebitis History of NC (myocardial infarction) 2012 History of vertebral fracture 2018 HTN (hypertension) IBS (irritable bowel syndrome) Vertigo Surgical History: Past Surgical History: Procedure Laterality Date COLON SURGERY 1992 Repair burst colon CORONARY ARTERY BYPASS GRAFT 2012 Double by-pass - [facility] FLUORO GUIDED INJECTION HIP RIGHT Right 05/16/2022 FLUORO GUIDED INJECTION HIP RIGHT Right 08/15/2022 FLUORO GUIDED INJECTION HIP RIGHT Right 12/10/[address] James ([place], [place]) TOTAL KNEE ARTHROPLASTY Right 2018 Current [...] infusion (premix) 0-33 Units/kg/hr intravenous Titrated Olimpia oLng MD 14.11 mL/hr at 02/21/23 1300 17 [...] Team: General 4 Contact Information: Please see [facility] Treatment Team listing for up-to-date contact information. [...] due to ongoing hemodynamic instability wastransferred to [facility] for further management. While at [facility] she also had an infectious workup performed [...] teenager - had phlebitis 2013: History of NC (myocardial infarction) 2018: History of vertebral fracture No date: HTN (hypertension) No date: IBS (irritable bowel syndrome) No date: Vertigo Past Surgical History: 1992: COLON SURGERY Comment: Repair burst colon 2013: CORONARY ARTERY BYPASS GRAFT Comment: Double by-pass - [facility] 05/16/2022: FLUORO GUIDED INJECTION HIP RIGHT; Right 08/15/2022: FLUORO GUIDED INJECTION HIP RIGHT; Right 12/10/2022: FLUORO GUIDED INJECTION HIP RIGHT; Right 1998: MICRODISCECTOMY Comment: Dr. James ([place], [place]) 2018: TOTAL KNEE ARTHROPLASTY; Right HOME [...] tablet 50 mg 50 mg oral Daily Oilmpia Long MD 50 mg at 02/20/23 0858 sodium chloride 0.9% flush 5-10 mL 5-10 mL intra-catheter Q12H [facility] Olimpia Long MD sodium chloride 0.9% flush [...] was found Confirmed by EDWAR RODRIGUEZ M.D ([id number]) on 02/18/2023 8:23:15 PM Echo:Results for orders placed during the hospital encounter of 02/17/23 Transthoracic Echo (TTE) Complete W Doppler/CF Narrative Patient name: Tiera Lobato Date of test: 02/20/2023 Type of test: TTE w/Doppler Hospital #: 0 Date of : 1945 (F) [employer] Administrator: Elian Merino [facility] Referring Physician: FRANCA ECHEVARRIA MD Contrast Agent: 1.1 ml Optison Administered, (1.9 ml wasted). Contrast Administered by: ICU Nurse Supervised/Interpreted by: Piper Miller MD Diagnosis: Location: [facility] Reason for test: MRSA bacteremia MV Structure: [...] 2=Hypo 3=Akinetic 4=Dyskin./Aneurysm 0=Not visualized) Parasternal Long [place]:MAS=1 BAS=1 MIL=1 MATA=1 Parasternal Short [place]:MAS=1 MIS=1 NC=1 MIL=1 MAL=1 MA=1 Apical 4 Chambers:=1 MIS=1 BIS=1 BAL=1 MAL=1 AL=1 AC=1 Apical 2 Chambers:AI=1 NC=1 BI=1 BA=1 MA=1 AA=1 AC=1 LV Global [...] MD By signing this report, the attending workday consultant certifies that he or she has personally [...] RVR with hemodynamic instability requiring transfer to [facility] for a higher level of care. Her hospital course was complicated by MRSA bacteremia. MRSA bacteremia: Unclear if this was present at admission, but she reports no preceding fevers or chills, and given rapid clearance of bacteremia and echo without any associated vegetations I suspect that this may ran nosocomial infection that she developed while at [facility]. However, given her prostheticknee I would prefer [...] Chaudhari MD PhD Infectious Diseases Team 4 [facility] for the opportunity to participate in the care of your patient. Please chat message in [employer] or call the ID team 4 attending with any questions or concerns at [phone] during daytime hours. If there is an emergency after hours then the ID fellow construction and maintenance inspector can be reached at [phone]. * Bolivar Rasmussen MD - 02/19/2023 6:11 PM CDTAssociated Order(s): CONSULT TO ORTHO-TRAUMA Orthopaedic Surgery Hand/Flap Service Consult February 19, 2023 6:15 PM Reason for Consult: Right distal radius fracture Requesting Provider: [id number] ICU Imaging and notes were reviewed and evaluated within 30 minutes of consultation. Att/Fellow: Valeria/Devon Dx: R DR ledesma s/p reduction at OSH Procedure(s): None , HPI: 77 y.o. right hand dominant female s/p syncopal fall on 02/06 p/w R subacute DR ledesma. Was seen [facility] at time of injury, seen by ortho [...] PMH of pAF, Apical variantHCM, CAD with NC in 2013 s/p CABG with LAWSON to LAD and SVG to OM, HTN, DDD,diverticulitis, vertigo,prior DVT, OA. 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), retired, lives in [place] Location: right upper extremity Quality: achy pain Duration: weeks Severity: mild Past Medical History: Diagnosis Date Acid reflux Heart murmur High cholesterol History of blood clots 1960s in leg as teenager - had phlebitis History of NC (myocardial infarction) 2012 History of vertebral fracture 2017 HTN (hypertension) IBS (irritable bowel syndrome) Vertigo Past Surgical History: Procedure Laterality Date COLON SURGERY 1992 Repair burst colon CORONARY ARTERY BYPASS GRAFT 2012 Double by-pass - [facility] FLUORO GUIDED INJECTION HIP RIGHT Right 05/16/2022 FLUORO GUIDED INJECTION HIP RIGHT Right 08/15/2022 FLUORO GUIDED INJECTION HIP RIGHT Right 12/10/[address] James ([place], [place]) TOTAL KNEE ARTHROPLASTY Right 2018 Prior [...] initial injury x-rays and post-reduction x-rays from [facility] of the right wrist as well as [...] surgery team,please use the Directory Search at [email or web address] to page resident directly. If questions arise and the appropriate resident can't be reached or you are calling overnight, please contact [phone] ([place]- 7:30 PM - 6:30 AM - Floor Resident) or [phone] (24 hours/day - Consult Resident) Cosigned by [...] of pAF, Apical variant HCM, CAD with NC in 2013 s/p CABG with LAWSON to LAD and SVG to OM, HTN, DDD,diverticulitis, vertigo, prior DVT, OA who presents as an OSH transfer for AFib with RVR complicated by hemodynamic instability. Electrophysiologyhas been consulted for Afib. Recently discharged from [facility] 02/06 after R radial fracture. Was in [...] went back into Afib RVR. Transferred to [facility] for additional workup. Review of Systems: Review of systems as per HPI and, otherwise all other systems are negative. PMHX: has a past medical history of Acid reflux, Heart murmur, High cholesterol, History of blood clots (), History of NC (myocardial infarction) (2012), History of vertebral fracture [...] of pAF, Apical variant HCM, CAD with NC in 2012 s/p CABG with LAWSON to LAD and SVG to OM, HTN, DDD,diverticulitis, vertigo, prior DVT, OA who presents as an OSH transfer for AFib with RVR complicated by hemodynamic instability. Electrophysiologyhas been consulted for Afib. #Paroxysmal Atrial Fibrillation with RVR #Apical HCM #CAD s/p NC 2012, s/p CABG w/ LAWSON to LAD, [...] 5PM or on weekends, please page the laboratory mechanic helper construction and maintenance inspector with any questions or concerns. Archie Mayo MD Pin Inserter 10:08 AM 02/18/23 Cosigned by Nick Lange [...] Miscellaneous Notes * [facility] Note - Baylee uBrkett RN - 03/21/2023 1:32 PM CDT Images from the original note were not included. COVID-19 Coronavirus RNA Nasopharyngeal Order: [id number] Collected 03/21/2023 10:28 Status: Final result Visible to patient: Yes (not seen) Specimen Information: Nasopharyngeal 0 Result Notes Component Ref Range & Units COVID-19 RNA Negative Negative Resulting Agency [facility] Narrative Performed by: [facility] Is the patient experiencing any symptoms consistent with COVID (eg. Fever, cough, shortness of breath)?->No What is the reason for testing?->Placement in post-acute care setting (Rapid) Interpretive data: Synonyms for this test include: PCR and NAAT . This test is performed using the [employer] Xpert Xpress plus assay. This is a [...] Add Notifications Back to Top Accession# [id number] Lab Component SmartPhrase Guide COVID-19 Coronavirus RNA Nasopharyngeal (Order #[id number]) on 03/21/23 Other Results from 02/17/2023 Basic [...] Recent Administrations atorvastatin (LIPITOR) tablet 80 mg [[id number]] Ordering Provider: Ritika Serrano MD Status: Dispensed Ordered On: 02/17/231724 Start: 02/17/23 2100 Ordered Dose (Remaining/Total): 80 mg (--/--) Route: oral Frequency: Nightly Ordered Rate/Order Duration: -- / -- Admin Instructions: at bedtime. Timestamps Action Dose Route Other Information 03/18/235 Given 80 mg oral Performed by: Yaa Lara RN Scanned Package: [address]-9 calcium carbonate-vitamin D3 1,250mg (500mg elemental) - 5 mcg (200 units) per tablet 1 tablet [[id number]] Ordering Provider: Ritika Serrano MD Status: Dispensed Ordered On: 02/17/231724 Start: 02/17/23 1800 Ordered Dose (Remaining/Total): 1 tablet (--/--) Route: oral Frequency: Daily Ordered Rate/Order Duration: -- / -- Timestamps Action Dose Route Other Information 03/19/23 0835 Given 1 tablet oral Performed by: Scotty Cain RN Scanned Package: [id number] clopidogreL (PLAVIX) tablet 75 mg [[id number]] Ordering Provider: Ritika Serrano MD Status: Dispensed Ordered On: 02/17/231724 Start: 02/17/231799 Ordered Dose (Remaining/Total): 75 mg (--/--) Route: oral Frequency: Daily Ordered Rate/Order Duration: -- / -- Timestamps Action Dose Route Other Information 03/19/2336 Given 75 mg oral Performed by: Scotty Cain RN Scanned Package: 40489-630-31 ezetimibe (ZETIA) tablet 10 mg [[id number]] Ordering Provider: Ritika Serrano MD Status: Dispensed Ordered On: 02/17/231724 Start: 02/17/231799 Ordered Dose (Remaining/Total): 10 mg (--/--) Route: oral Frequency: Daily Ordered Rate/Order Duration: -- / -- Timestamps Action Dose Route Other Information 03/19/23834 Given 10 mg oral Performed by: Scotty Cain RN Scanned Package: 30434-166-43 sertraline (ZOLOFT) tablet 50 mg [[id number]] Ordering Provider: Ritika Serrano MD Status: Dispensed Ordered On: 02/17/231724 Start: 02/17/231799 Ordered Dose (Remaining/Total): 50 mg (--/--) Route: oral Frequency: Daily Ordered Rate/Order Duration: -- / -- Timestamps Action Dose Route Other Information 03/19/23835 Given 50 mg oral Performed by: Scotty Cain RN Scanned Package: 77431-668-21 heparin 1,000 unit/mL injection 5,000 Units [[id number]] Ordering Provider: Olimpia Long MD Status: Completed [...] Signoff by: Aleksey Tracey RN Scanned Package: 13903-519-76 vancomycin 1,250 mg/262.5 mL in sodium chloride 0.9% (premix) 1,250 mg [[id number]] Ordering Provider: Olimpia Long MD Status: Completed (Past End Date/Time) Ordered On: 02/17/231750 Starts/Ends: 02/17/231829 - 02/17/232000 Ordered Dose (Remaining/Total): 15 mg/kg (0/1) Route: intravenous Frequency: Once Ordered Rate/Order Duration: -- / 60 Minutes Timestamps Action Dose / Duration Route Other Information 02/17/231900 New Bag 1,250 mg 60 Minutes intravenous Performed by: Yessica Camejo RN linaCLOtide (LINZESS) capsule 145 mcg [[id number]] Ordering Provider: Ritika Serrano MD Status: Dispensed [...] Cain RN ondansetron (ZOFRAN) injection 4 mg [[id number]] Ordering Provider: Aleksey Mendez MD Status: Completed (Past End Date/Time) Ordered On: 02/17/231927 Starts/Ends: 02/17/231999 - 02/17/231948 Ordered Dose (Remaining/Total): 4 mg (0/1) Route: intravenous Frequency: Once Ordered Rate/Order Duration: -- / 2 Minutes Timestamps Action Dose / Duration Route Other Information 02/17/231946 Given 4 mg 2 Minutes intravenous Performed by: Mike Florez RN Scanned Package: [address]-[address] (PROTONIX) extended release tablet 40 mg [[id number]] Ordering Provider: Ritika Serrano MD Status: Dispensed Ordered On: 02/17/231938 Start: 02/17/232014 Ordered Dose (Remaining/Total): 40 mg (--/--) Route: oral Frequency: Daily Ordered Rate/Order Duration: -- / -- Admin Instructions: Do not crush, chew, cut, dissolve, open or otherwise manipulate tablet/capsule. Timestamps Action Dose Route Other Information 03/19/2336 Given 40 mg oral Performed by: Scotty Cain RN Scanned Package: 18279-467-75 digoxin (LANOXIN) injection 250 mcg [[id number]] Ordering Provider: Aleksey Mendez MD Status: Completed (Past End Date/Time) Ordered On: 02/17/232112 Starts/Ends: 02/17/232144 - 02/17/232147 Ordered Dose (Remaining/Total): 250 mcg (0/1) Route: intravenous Frequency: Once Ordered Rate/Order Duration: -- / 5 Minutes Timestamps Action Dose / Duration Route Other Information 02/17/232142 Given 250 mcg 5 Minutes intravenous Performed by: Mike Florez RN Scanned Package: 1489-4050-51 digoxin (LANOXIN) injection 250 mcg [[id number]] Ordering Provider: Aleksey Mendez MD Status: Completed (Past End Date/Time) Ordered On: 02/18/23 014 Starts/Ends: 02/18/23 023 - 02/18/23 023 Ordered Dose (Remaining/Total): 250 mcg (0/1) Route: intravenous Frequency: Once Ordered Rate/Order Duration: -- / 5 Minutes Timestamps Action Dose / Duration Route Other Information 02/18/23 0226 Given 250 mcg 5 Minutes intravenous Performed by: Mike Florez RN Scanned Package: 7310-6753-50 digoxin (LANOXIN) injection 250 mcg [[id number]] Ordering Provider: Olimpia Long MD Status: Completed (Past End Date/Time) Ordered On: 09/05/23 0640 Starts/Ends: 02/18/23 0645 - 02/18/23 0656 Ordered Dose (Remaining/Total): 250 mcg (0/1) Route: intravenous Frequency: Once Ordered Rate/Order Duration: -- / 5 Minutes Timestamps Action Dose / Duration Route Other Information 02/18/23 0651 Given 250 mcg 5 Minutes intravenous Performed by: Mike Florez RN Scanned Package: 2178-0463-25 potassium chloride 20 mEq/50 mL in sterile water (premix) 20 mEq [[id number]] Ordering Provider: Olimpia Long MD Status: Completed [...] Issa RN digoxin (LANOXIN) injection 250 mcg [[id number]] Ordering Provider: Olimpia Long MD Status: Completed (Past End Date/Time) Ordered On: 02/18/23 0836 Starts/Ends: 02/18/23 1100 - 02/18/23 1036 Ordered Dose (Remaining/Total): 250 mcg (0/1) Route: intravenous Frequency: Once Ordered Rate/Order Duration: -- / 5 Minutes Timestamps Action Dose / Duration Route Other Information 02/18/23 1031 Given 250 mcg 5 Minutes intravenous Performed by: Kel Issa RN Scanned Package: 46348-740-80 ioversoL (OPTIRAY 350) syringe 75 mL [[id number]] Ordering Provider: Olimpia Long MD Status: Completed [...] g/50 mL in water (premix) 2 g [[id number]] Ordering Provider: Aleksey Mendez MD Status: Completed [...] by: Florida Del Castillo RN Scanned Package: 45938-657-62 lidocaine PF (XYLOCAINE) 10 mg/mL (1 %) preservative free injection 10-20 mg [[id number]] Ordering Provider: Olimipa Long MD Status: Verified (Past End Date/Time) Ordered On: 02/19/23630 Starts/Ends: 02/19/23714 - 02/20/23714 Ordered Dose (Remaining/Total): 1-2 mL (11) Route: subcutaneous Frequency: Once Ordered Rate/Order Duration: -- / -- Admin Instructions: Administer to insertion site prior to procedure of local anesthesia. Administervolume needed to infiltrate site. (No admins scheduled or recorded for this medication) sodium chloride 0.9% flush 5-10 mL [[id number]] Ordering Provider: Olimpia Long MD Status: Verified [...] RN sodium chloride 0.9% flush 5-20 mL [[id number]] Ordering Provider: Olimpia Long MD Status: Verified Ordered On: 02/19/23 06 Start: 02/19/23 06 Ordered Dose (Remaining/Total): 5-20 mL (--/--) Route: intra-catheter Frequency: As needed Ordered Rate/Order Duration: -- / -- Admin Instructions: Flush volume based on line type, size, and protocol. Timestamps Action Dose Route Other Information 03/10/23 1338 Given 10 mL intra-catheter Performed by: Tanna Veliz RN Scanned Package: [id number] furosemide (LASIX) 10 mg/mL injection 20 mg [[id number]] Ordering Provider: Olimpia Long MD Status: Completed [...] Performed by: Kel Issa RN Scanned Package: 54098-245-14 potassium chloride ER (KLOR-CON) extended release tablet 30 mEq [[id number]] Ordering Provider: Eliud Pires MD Status: Completed [...] Performed by: Ella Atkins RN Scanned Package: 5466-0464-06, 5096-4059-78, 9283-9373-99 magnesium sulfate 2 g/50 mL in water (premix) 2 g [[id number]] Ordering Provider: Eliud Pires MD Status: Completed (Past End Date/Time) Ordered On: 02/20/23 0524 Starts/Ends: 02/20/23 0600 - 02/20/23 0643 Ordered Dose (Remaining/Total): 2 g (0/1) Route: intravenous Frequency: Once Ordered Rate/Order Duration: -- / 60 Minutes Timestamps Action Dose / Duration Route Other Information 02/20/23 0543 New Bag 2 g 60 Minutes intravenous Performed by: Ella Atkins RN Scanned Package: 06037-206-42 perflutren protein-a (OPTISON) 3 mL in sodium chloride 0.9% 8 mL syringe [[id number]] Ordering Provider: Franca Echevarria DO Status: Completed (Past End Date/Time) Ordered On: 02/20/23 0733 Starts/Ends: 02/20/23 0732 - 02/20/23 1024 Ordered Dose (Remaining/Total): 1-8 mL (0/1) Route: intravenous Frequency: Once in imaging Ordered Rate/Order Duration: -- / -- Timestamps Action Dose Route Other Information 02/20/23 1024 Contrast Given 3 mL intravenous Performed by: Elian Merino, [facility] metoprolol tartrate immediate release capsule 12.5 mg [[id number]] Ordering Provider: Olimpia Long MD Status: Completed (Past End Date/Time) Ordered On: 02/20/23 1037 Starts/Ends: 02/20/23 1115 - 02/20/23 1159 Ordered Dose (Remaining/Total): 12.5 mg (0/1) Route: oral Frequency: Once Ordered Rate/Order Duration: -- / -- Timestamps Action Dose Route Other Information 02/20/23 1159 Given 12.5 mg oral Performed by: Dea Gamino RN Scanned Package: 6538-1235-10, 2034-6487-75 sodium chloride 0.9% 0.9% infusion - ADS Override Pull [[id number]] Status: Dispensed (Past End Date/Time) Ordered On: 02/20/231743 Starts/Ends: 02/20/231743 - 02/21/23 0559 Ordered Dose (Remaining/Total): -- (06/16) Route: -- Frequency: -- Ordered Rate/Order Duration: -- / -- Admin Instructions: Created by cabinet override Note to pharmacy: Created by cabinet override (No admins scheduled or recorded for this medication) ioversoL (OPTIRAY 350) syringe 100 mL [[id number]] Ordering Provider: Aleksey Mendez MD Status: Completed [...] g/50 mL in water (premix) 2 g [[id number]] Ordering Provider: Bob Winter MD Status: Completed (Past End Date/Time) Ordered On: 02/21/232157 Starts/Ends: 02/21/232229 - 02/21/23 234 Ordered Dose (Remaining/Total): 2 g (0/1) Route: intravenous Frequency: Once Ordered Rate/Order Duration: -- / 60 Minutes Timestamps Action Dose / Duration Route Other Information 02/21/23 224 New Bag 2 g 60 Minutes intravenous Performed by: Katharina Glass RN Scanned Package: 83512-140-06 potassium chloride ER (KLOR-CON) extended release tablet 30 mEq [[id number]] Ordering Provider: Eliud Pires MD Status: Completed [...] Performed by: Katharina Glass RN Scanned Package: 1733-3914-54, 3993-7891-27, 1322-6269-81 magnesium sulfate 2 g/50 mL in water (premix) 2 g [[id number]] Ordering Provider: Eliud Pires MD Status: Completed (Past End Date/Time) Ordered On: 02/22/232102 Starts/Ends: 02/22/232144 - 02/22/232318 Ordered Dose (Remaining/Total): 2 g (0/1) Route: intravenous Frequency: Once Ordered Rate/Order Duration: -- / 60 Minutes Timestamps Action Dose / Duration Route Other Information 02/22/232218 New Bag 2 g 60 Minutes intravenous Performed by: Katharina Glass RN Scanned Package: 76177-228-40 camphor-menthoL (SARNA) 0.5-0.5 % lotion [[id number]] Ordering Provider: Ritika Serrano MD Status: Dispensed Ordered On: 02/22/232104 Start: 02/22/232104 Ordered Dose (Remaining/Total): -- (--/--) Route: topical Frequency: Every 6 hours PRN Ordered Rate/Order Duration: -- / -- Question Answer Comment Apply to affected area:: arm -- Laterality: Left -- Timestamps Action Dose Route Other Information 02/22/23 2220 Given 1 Application topical Performed by: Katharina Glass RN Scanned Package: 6108-6297-79 apixaban (ELIQUIS) tablet 5 mg [[id number]] Ordering Provider: Ritika Serrano MD Status: Dispensed [...] Performed by: Scotty Cain RN Scanned Package: 4625-6934-52 metoprolol XL (TOPROL-XL) extended release tablet 50 mg [[id number]] Ordering Provider: Ritika Serrano MD Status: Completed [...] Performed by: Jeimy Garcia RN Scanned Package: 52145-806-81 magnesium sulfate 2 g/50 mL in water (premix) 2 g [[id number]] Ordering Provider: Olimpia Long MD Status: Completed (Past End Date/Time) Ordered On: 02/24/232204 Starts/Ends: 02/24/232244 - 02/24/23 2314 Ordered Dose (Remaining/Total): 2 g (0/1) Route: intravenous Frequency: Once Ordered Rate/Order Duration: -- / 60 Minutes Timestamps Action Dose / Duration Route Other Information 02/24/23 221 New Bag 2 g 60 Minutes intravenous Performed by: Julio César Pratt RN Scanned Package: 74487-387-45 magnesium sulfate 2 g/50 mL in water (premix) 2 g [[id number]] Ordering Provider: Ritika Serrano MD Status: Completed (Past End Date/Time) Ordered On: 03/02/23 0855 Starts/Ends: 03/02/23 0930 - 03/02/23 1033 Ordered Dose (Remaining/Total): 2 g (0/1) Route: intravenous Frequency: Once Ordered Rate/Order Duration: -- / 60 Minutes Timestamps Action Dose / Duration Route Other Information 03/02/23 0933 New Bag 2 g 60 Minutes intravenous Performed by: Karen Ventura RN Scanned Package: 17008-984-50 potassium chloride ER (KLOR-CON) extended release tablet 40 mEq [[id number]] Ordering Provider: Ritika Serrano MD Status: Completed [...] Performed by: Edita Callahan RN Scanned Package: 2027-0381-85, 5138-5851-04, 8071-2651-18, 7566-9052-68 lidocaine (LIDODERM) 5 % patch 1 patch [[id number]] Ordering Provider: Ritika Serrano MD Status: Dispensed [...] Cain RN Comments: right leg Scanned Package: 7607-9180-39 metoprolol tartrate (LOPRESSOR) immediate release tablet 25 mg [[id number]] Ordering Provider: Ritika Serrano MD Status: Completed (Past End Date/Time) Ordered On: 03/04/23744 Starts/Ends: 03/04/23829 - 03/04/23751 Ordered Dose (Remaining/Total): 25 mg (0/1) Route: oral Frequency: Once Ordered Rate/Order Duration: -- / -- Timestamps Action Dose Route Other Information 03/04/23751 Given 25 mg oral Performed by: Edita Callahan RN Scanned Package: 50999-224-24 lidocaine (LIDODERM) 5 % patch 2 patch [[id number]] Ordering Provider: Ritika Serrano MD Status: Dispensed [...] Cain RN Comments: right leg Scanned Package: 1048-0601-80, 2848-6056-10 diclofenac sodium (VOLTAREN) 1 % gel 2 g [[id number]] Ordering Provider: Ritika Serrano MD Status: Dispensed [...] Performed by: Yaa Lara RN Scanned Package: 12852-290-62 amiodarone (PACERONE) tablet 200 mg [[id number]] Ordering Provider: Ritika Serrano MD Status: Completed (Past End Date/Time) Ordered On: 03/04/23 1345 Starts/Ends: 03/04/23 1415 - 03/04/23 1416 Ordered Dose (Remaining/Total): 200 mg (0/1) Route: oral Frequency: Once Ordered Rate/Order Duration: -- / -- Timestamps Action Dose Route Other Information 03/04/23 141 Given 200 mg oral Performed by: Edita Callahan RN Scanned Package: 02829-479-89 magnesium sulfate 2 g/50 mL in water (premix) 2 g [[id number]] Ordering Provider: Ritika Serrano MD Status: Completed (Past End Date/Time) Ordered On: 03/04/23 1349 Starts/Ends: 03/04/23 1430 - 03/04/23 1516 Ordered Dose (Remaining/Total): 2 g (0/1) Route: intravenous Frequency: Once Ordered Rate/Order Duration: -- / 60 Minutes Timestamps Action Dose / Duration Route Other Information 03/04/23 1416 New Bag 2 g 60 Minutes intravenous Performed by: Edita Callahan RN Scanned Package: 21063-835-15 Lactated Ringer's (LR) bolus 500 mL [[id number]] Ordering Provider: Ritika Serrano MD Status: Completed [...] Performed by: Karen Ventura RN Scanned Package: 4889-6532-65 Lactated Ringer's (LR) bolus 500 mL [[id number]] Ordering Provider: Prince Michel MD Status: Completed [...] Performed by: Jeimy Garcia RN Scanned Package: 0424-9709-79 gabapentin (NEURONTIN) capsule 200 mg [[id number]] Ordering Provider: Ritika Serrano MD Status: Dispensed Ordered On: 03/06/23 1126 Start: 03/06/23 2100 Ordered Dose (Remaining/Total): 200 mg (--/--) Route: oral Frequency: 2 times daily Ordered Rate/Order Duration: -- / -- Timestamps Action Dose Route Other Information 03/19/23 0835 Given 200 mg oral Performed by: Scotty Cain RN Scanned Package: 24186-001-55, 41990-255-21 ondansetron (ZOFRAN) injection 4 mg [[id number]] Ordering Provider: Ritika Serrano MD Status: Completed (Past End Date/Time) Ordered On: 03/06/23 1304 Starts/Ends: 03/06/23 1345 - 03/06/23 1310 Ordered Dose (Remaining/Total): 4 mg (0/1) Route: intravenous Frequency: Once Ordered Rate/Order Duration: -- / 2 Minutes Timestamps Action Dose / Duration Route Other Information 03/06/23 1308 Given 4 mg 2 Minutes intravenous Performed by: Baylee Munoz RN Scanned Package: [address]-7 Lactated Ringer's (LR) bolus 500 mL [[id number]] Ordering Provider: Ritika Serrano MD Status: Completed [...] MD order - Dr. Serrano Scanned Package: 8969-0809-58 Lactated Ringer's (LR) bolus 500 mL [[id number]] Ordering Provider: Ritika Serrano MD Status: Completed [...] Performed by: Isela Moreno RN Scanned Package: 0096-3205-99 meclizine (ANTIVERT) tablet 25 mg [[id number]] Ordering Provider: Mikal Barrow MD Status: Completed (Past End Date/Time) Ordered On: 03/08/2314 Starts/Ends: 03/08/23 0945 - 03/08/23 0941 Ordered Dose (Remaining/Total): 25 mg (0/1) Route: oral Frequency: Once Ordered Rate/Order Duration: -- / -- Timestamps Action Dose Route Other Information 03/08/23 0941 Given 25 mg oral Performed by: Scotty Cain RN Scanned Package: 6353-7245-28 meclizine (ANTIVERT) tablet 12.5 mg [[id number]] Ordering Provider: Benjamín Rodriguez DO Status: Completed (Past End Date/Time) Ordered On: 03/08/23 1341 Starts/Ends: 03/08/23 1415 - 03/08/23 1721 Ordered Dose (Remaining/Total): 12.5 mg (0/1) Route: oral Frequency: Once Ordered Rate/Order Duration: -- / -- Timestamps Action Dose Route Other Information 03/08/23 1721 Given 12.5 mg oral Performed by: Scotty Cain RN Scanned Package: 47999-892-07 Lactated Ringer's (LR) bolus 1,000 mL [[id number]] Ordering Provider: Ritika Serrano MD Status: Completed [...] Performed by: Scotty Cain RN Scanned Package: 8260-6567-08 ondansetron (ZOFRAN) injection 8 mg [[id number]] Ordering Provider: Ritika Serrano MD Status: Completed [...] Performed by: Scotty Cain RN Scanned Package: [address]-7, [address]-2 Lactated Ringer's (LR) bolus 1,000 mL [[id number]] Ordering Provider: Te Baker MD Status: Completed [...] mg in sodium chloride 0.9% 40 mL [[id number]] Ordering Provider: Mikal Barrow MD Status: Completed [...] Tanna Veliz RN Lactated Ringer's (LR) infusion [[id number]] Ordering Provider: Mikal Barrow MD Status: Dispensed [...] RN Lactated Ringer's (LR) bolus 1,000 mL [[id number]] Ordering Provider: Te Baker MD Status: Completed [...] Performed by: Millicent Coe RN Scanned Package: 3455-6037-92 Lactated Ringer's (LR) bolus 1,000 mL [[id number]] Ordering Provider: Te Baker MD Status: Completed [...] Performed by: Millicent Coe RN Scanned Package: 7867-6440-24 metoprolol tartrate (LOPRESSOR) immediate release tablet 25 mg [[id number]] Ordering Provider: Te Baker MD Status: Completed (Past End Date/Time) Ordered On: 03/14/23 0940 Starts/Ends: 03/14/23 1015 - 03/14/23 0948 Ordered Dose (Remaining/Total): 25 mg (0/1) Route: oral Frequency: Once Ordered Rate/Order Duration: -- / -- Timestamps Action Dose Route Other Information 03/14/23 0948 Given 25 mg oral Performed by: Millicent Coe RN Scanned Package: 26272-546-85 metoprolol (LOPRESSOR) injection 5 mg [[id number]] Ordering Provider: Te Baker MD Status: Completed [...] Performed by: Millicent Coe RN Scanned Package: 0392-0047-55 amiodarone (PACERONE) tablet 400 mg [[id number]] Ordering Provider: Mikal Barrow MD Status: Dispensed Ordered On: 03/14/23 1523 Start: 03/15/23 0900 Ordered Dose (Remaining/Total): 400 mg (--/--) Route: oral Frequency: Daily Ordered Rate/Order Duration: -- / -- Admin Instructions: Please administer with food Timestamps Action Dose Route Other Information 03/19/23 0836 Given 400 mg oral Performed by: Scotty Cain RN Scanned Package: 63329-299-69, 97573-233-79 metoprolol XL (TOPROL-XL) extended release tablet 25 mg [[id number]] Ordering Provider: Mikal Barrow MD Status: Dispensed [...] Performed by: Scotty Cain RN Scanned Package: 93843-551-63 midodrine (PROAMATINE) tablet 5 mg [[id number]] Ordering Provider: Mikal Barrow MD Status: Verified Ordered On: 03/15/23910 Start: 03/15/23910 Ordered Dose (Remaining/Total): 5 mg (--/--) Route: oral Frequency: Daily PRN Ordered Rate/Order Duration: -- / -- Admin Instructions: Give 30-45 min before working with physical therapy to reduce orthostasis (No admins scheduled or recorded for this medication) sodium chloride 0.9% IVPB 0-250 mL [[id number]] Ordering Provider: Janneth Moore MD Status: Completed [...] Performed by: Kyung Pena, PHILIP Scanned Package: 1314-6697-67 Lactated Ringer's (LR) bolus 1,000 mL [[id number]] Ordering Provider: Te Baker MD Status: Completed [...] Performed by: Tanna Veliz RN Scanned Package: 9365-4086-91 ioversoL (OPTIRAY 350) syringe 100 mL [[id number]] Ordering Provider: Te Baker MD Status: Completed [...] RT Lactated Ringer's (LR) bolus 1,000 mL [[id number]] Ordering Provider: Te Baker MD Status: Completed [...] Veliz, PHILIP ondansetron (ZOFRAN) injection 8 mg [[id number]] Ordering Provider: Te Baker MD Status: Dispensed [...] Performed by: Scotty Cain RN Scanned Package: [address]-6, [address]-3 magnesium sulfate 4 g/100 mL in water (premix) 4 g [[id number]] Ordering Provider: Te Baker MD Status: Completed [...] ER (KLOR-CON) extended release tablet 40 mEq [[id number]] Ordering Provider: Te Baker MD Status: Completed [...] Performed by: Scotty Cain RN Scanned Package: 7511-7605-71, 7063-5127-43, 8712-1617-04, 0627-7703-25 acetaminophen (TYLENOL) tablet 1,000 mg [[id number]] Ordering Provider: Te Baker MD Status: Dispensed Ordered On: 03/18/23913 Start: 03/18/23 1600 Ordered Dose (Remaining/Total): 1,000 mg (--/--) Route: oral Frequency: 3 times daily Ordered Rate/Order Duration: -- / -- Timestamps Action Dose Route Other Information 03/19/23 0835 Given 1,000 mg oral Performed by: Scotty Cain RN Scanned Package: 3468-2750-71, 6627-2950-36 simethicone (MYLICON) chewable tablet 160 mg [[id number]] Ordering Provider: Te Baker MD Status: Completed (Past End Date/Time) Ordered On: 03/18/23914 Starts/Ends: 03/18/23 1000 - 03/18/23 1044 Ordered Dose (Remaining/Total): 160 mg (0/1) Route: oral Frequency: Once Ordered Rate/Order Duration: -- / -- Timestamps Action Dose Route Other Information 03/18/23 104 Given 160 mg oral Performed by: Scotty Cain RN Scanned Package: 90098-581-39, 55661-006-17 metoprolol tartrate (LOPRESSOR) immediate release tablet 25 mg [[id number]] Ordering Provider: Te Baker MD Status: Completed (Past End Date/Time) Ordered On: 03/18/23 1044 Starts/Ends: 03/18/23 1115 - 03/18/23 1155 Ordered Dose (Remaining/Total): 25 mg (0/1) Route: oral Frequency: Once Ordered Rate/Order Duration: -- / -- Timestamps Action Dose Route Other Information 03/18/23 1155 Given 25 mg oral Performed by: Scotty Cain RN Scanned Package: 23644-827-38 metoprolol tartrate (LOPRESSOR) immediate release tablet 25 mg [[id number]] Ordering Provider: Te Baker MD Status: Verified [...] OK to Discharge -- No -TN User Amrtinez (r) = Recorded By, (t) = Taken [...] of pAF, Apical variant HCM, 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 Ifthe patient has been discharged, please call the gastroenterology appointments line at [phone] for questions regarding clinic/procedures follow up. Kevan [...] as teenager - had phlebitis History of NC (myocardial infarction) 2012 History of vertebral fracture 2017 HTN (hypertension) IBS (irritable bowel syndrome) Vertigo Past Surgical History: Procedure Laterality Date COLON SURGERY 1992 Repair burst colon CORONARY ARTERY BYPASS GRAFT 2012 Double by-pass - [facility] FLUORO GUIDED INJECTION HIP RIGHT Right 05/16/2022 FLUORO GUIDED INJECTION HIP RIGHT Right 08/15/2022 FLUORO GUIDED INJECTION HIP RIGHT Right 12/10/[address] James ([place], [place]) TOTAL KNEE ARTHROPLASTY Right 2018 No [...] of pAF, Apical variant HCM, CAD with NC in 2012 s/p CABG with [facility] to [...] Plan & referrals made/in place: Accepted to [facility] (Suraj [phone]). SNF unable to do IV abx. Support following discharge: Family Transportation: EMS Patient's Identified Problem/Goal Problem: Ensure acute medical needs are met and that patient has a safe discharge plan. Goal: Secure a discharge plan that patient/family are agreeable with and ensure patient has continuum of care. Patient and/or family are agreeable with plan. international sourcing manager will continue to follow and assist with discharge planning as needed. If any further discharge needs arise, please contact the covering case coordinator. * Plan of Care - Millicent Coe [...] Will need to reschedule office visit w/ MECHANICAL MAINTENANCE ENGINEER Harpreet Ravi at Dr. Stafford's office planned [...] avoid anticholinergic agents #HTN #HLD #CAD c/b NC s/p CABG #apical HCM No indication for [...] of pAF, Apical variant HCM, CAD with NC in 2012 s/p CABG with [facility] to [...] Please call the neurology consult phone at [phone] (Senior) with questions. * Plan of Care [...] & referrals made/in place: Patient accepted at [facility]. Need insurance auth - notstarted yet. Support following discharge: Facility staff and family Transportation: EMS Patient's Identified Problem/Goal Problem: Ensure acute medical needs are met and that patient has a safe discharge plan. Goal: Secure a discharge plan that patient/family are agreeable with and ensure patient has continuum of care. Patient and/or family are agreeable with plan. international sourcing manager will continue to follow and assist with discharge planning as needed. If any further discharge needs arise, please contact the covering case coordinator. * Plan of Care - Isela Moreno [...] CDT CM received phone call from Ban ([phone]) at [facility] who stated [employer] denied the appeal. international sourcing manager met with the patient at bedside to update on appeal decision and to work on a potential discharge disposition plan. Finance Professor provided education to patient on [place] facilities and the rehabilitation process. Patient reported she was interested in short term SNF placement for rehabilitation. international sourcing manager provided a list of SNF to patient. Patient asked for multiplereferrals to be sent: [facility] - Accepted [facility] - Out of [place] - Out [facility] - Accepted [facility] - Accepted *Patient choice* international sourcing manager sent out referrals via [facility]. CM [...] CDT CM received phone call from Ban ([phone]) at [facility] who stated [employer] denied the appeal. international sourcing manager met with the patient at bedside to update on appeal decision and to work on a potential discharge disposition plan. Finance Professor provided education to patient on [place] and the rehabilitation process. Patient reported she was interested in short term SNF placement for rehabilitation. international sourcing manager provided a list of SNF to patient. Patient asked for multiplereferrals to be sent: [facility] - Out of [place] - Out of [facility] international sourcing manager sent out referrals via [facility]IN. CM [...] LE, might benefit from use of leg journeyman powerhouse operator for R LE bed mobility -KT Transfer [...] PT Treatment Row Name 03/03/23 0928 02/26/23 1428 PT Last Visit Session Type Treatment -AR [...] Diseases Sign Off Recommendations for Patients on Fdc IV Antibiotics Diagnosis: MRSA bacteremia Retained Infected [...] RVR with hemodynamic instability [facility]. Her hospital [...] nosocomial infection that she developed while at [facility]. However, given her prosthetic knee and the [...] Team: General 4 Contact Information: Please see [facility] Treatment Team listing for up-to-date contact information. [...] RVR with hemodynamic instability requiring transfer to [facility] for a higher level of care. Her hospital course was complicated by MRSA bacteremia. MRSA bacteremia: Unclear if this was present at admission, but she reports no preceding fevers or chills, and given rapid clearance of bacteremia and echo without any associated vegetations I suspect that this may ran nosocomial infection that she developed while at [facility]. However, given her prostheticknee and the observation [...] Chaudhari MD PhD Infectious Diseases Team 4 [facility] opportunity to participate in the care of your patient. Please chat message in [employer] or call the ID team 4 attending with any questions or concerns at [phone] during daytime hours. If there is an emergency after hours then the ID fellow construction and maintenance inspector can be reached at [phone]. * Plan of Care - Kiana Cardoso [...] LE, might benefit from use of leg journeyman powerhouse operator for R LE bed mobility -KT Transfer [...] 9:50 AM CDT CM received call from [employer] ([phone]) that patient needs to sign a form in order to start the appeal process. Ban emailed form to CM, CM printed form and patient signed. Form was faxed back to [phone]. * Plan of Care - Cici Uribe [...] made/in place: Inpatient Rehab referral sent to [facility]. Insurance auth started 02/28. Support following discharge: Family Transportation: To be arranged - EMS F/U Appointments: To be determined Plan for weekend [facility] CM to call Ban ([phone]) to see if there is insurance auth. For weekend assistance, please check the treatment team in [facility] for the assigned case coordinator or contact the weekend Case Management phone [...] Burkett RN - 02/26/2023 2:26 PM CDT Finance Professor noted patient has been recommended for Inpatient Rehab by PT/OT. Finance Professor met withthe patient at bedside to discussion recommendations by therapy and to work on a potential discharge disposition plan. Finance Professor provided education to patient/family on the rehabilitation process.Patient reported she was interested in placement for rehabilitation. international sourcing manager provided a facility list to patient. Patient selected the following choice (preference order): [facility] international sourcing manager sent out referrals via ECIN. CM awaiting acceptance and will continue to work on discharge planning with patient and family. * [facility] Note - Baylee Burkett RN - 02/26/2023 2:22 PM CDT Images from the original note were not included. Patient Information: OT Eval and Treat Last 72 Hours OT Evaluation Row Name 02/24/23 0602 Chart Reviewed Yes -JR Session Type Evaluation [...] Equipment-Currently Using 4-Wheeled walker -JR Level of [place]offe[place] Independent with ADLs;Independent with ambulation;Needs assistance with [...] 72 Hours PT Evaluation Row Name 02/20/23 5894 Chart Reviewed Yes -KR Session Type Evaluation [...] Using Other (Comment) Rollator -KR Level of [place]offe[place] Independent with ADLs;Independent functional transfers;Needs assistance with [...] -HE Transfer Type [address] [facility] To and from -HE Transfer to [...] - Please ensure follow-up with patient's primary workday consultant, Dr. Stafford in 3-4 weeks EP will [...] the respective cardiology consult team listed on [employer] OR, from Friday-Friday, 7:30 am - 4:30 [...] of pAF, Apical variant HCM, CAD with NC in 2013 s/p CABG with [facility] to [...] 03/16) Best family contact: Storm Lobato (son) [phone] Rehab/Ancillary Consults: [] BI (trauma patient with [...] Diseases Sign Off Recommendations for Patients on Practice Business Asst IV Antibiotics Diagnosis: MRSA bacteremia Retained Infected [...] RVR with hemodynamic instability [facility] Her hospital [...] nosocomial infection that she developed while at [facility]. However, given her prosthetic knee and the [...] afebrile. Blood cultures from transfer here to [facility] have finalized as negative. Objective Anti-infectives (From [...] RVR with hemodynamic instability requiring transfer to [facility] for a higher level of care. Her hospital course was complicated by MRSA bacteremia. MRSA bacteremia: Unclear if this was present at admission, but she reports no preceding fevers or chills, and given rapid clearance of bacteremia and echo without any associated vegetations I suspect that this may ran nosocomial infection that she developed while at [facility]. However, given her prostheticknee and the observation [...] attending with any questions or concerns at [phone] during daytime hours. If there is an emergency after hours then the ID fellow construction and maintenance inspector can be reached at [phone]. * Plan of Care - Dea Gamino [...] the hospital. She hadrecently been discharged from [facility] 5 days prior (02/06) after treatment of [...] by hemodynamic instability, she was transferred to [facility] for possible ablation. Upon arrival to [facility] CCU, she continued to be in AFib [...] TTE - FBG net even #CAD with NC #hx CABG #HLD - lipid panel with [...] omeprazole 20mg - PPI #IBS Current regimen: [id number] - hold linaclotide for diarrhea - CTM. [...] none Best family contact: Son Storm Lobato [phone] Rehab/Ancillary Consults: [] BI (trauma patient with [...] discontinued) [x] Sign-out was called to the [employer] service. Olimpia Long MD * Plan [...] Patient and/or family are agreeable with plan. international sourcing manager will continue to follow and assist with discharge planning as needed. If any further discharge needs arise, please contact the covering case coordinator. * Plan of Care - Dea Gamino [...] Patient and/or family are agreeable with plan. international sourcing manager will continue to follow and assist with discharge planning as needed. If any further discharge needs arise, please contact the covering case coordinator. * Plan of Care - [place] [...] with patient's son - Storm Lobato - [phone] (02/18/23 3977) Admission Source: from [facility] - brought there from her [facility] Facility - [facility] Impression: Anxiety, Depression, pAF with RVR, apical HCM, CAD with NC, hx CABG, HLD HTN, PNA, GERD, IBS, CLAUDIA, MRSA, Sepsis Plan Includes: Patient to return to facility when medically stable. CM left message with facility to see if there is an intake procedure for return to the facility. Primary Source of Transportation: Does the patient need discharge transport arranged?: No (02/18/231516) Health Insurance Coverage: [employer] & [employer] Prescription Coverage: yes Pharmacy: [facility] - [place], [place] - [address] [place] [id number] The facility handles patient's meds - Son is not sure who that is. Primary Care Provider: Cristian Ling MD - verified Prior to Admission: Functional Status: Independent with ADLs Primary Caregiver: Self Support System: Family members (Patient lives in an Assisted Living Center that has a [employer] stop by to do patient's vital signs on a regular basis.) Support system contact info (name, phone, availablity): Son Johnathan Lobato - [phone] Home Care Services: Other (Comment) (Patient had [...] to return Facility contact name and number:: [facility] - [phone] - [address], [place] [address] - CM called and left a message [...] Collaboration with patient, MD, direct care nurse, Manager Summer, and other members of the health care team to assure needed interventions completed. 2. Return patient to optimal level of self-care post discharge. 3. Finance Professor will follow for Discharge Planning - interventions [...] 10:28 AM CDT) COVID-19 RNA Negative Negative [facility] Nasopharyngeal 03/21/2023 10 :28 AM CDT 03/21/2023 11:43 AM CDT Narrative [facility] - 03/21/2023 12:54 PM CDT Is the patient experiencing any symptoms consistent with COVID (eg. Fever, cough, shortness of breath)?->No What is the reason for testing?->Placement in post-acute care setting (Rapid) ??Interpretive data: Synonyms for this test include: PCR and NAAT . ??This test is performed using the [employer] Xpert Xpress plus assay. This is a [...] LAB MICROBIOLOGY - NERAL ORDERABLES Final Result [facility] Department [place] [address] * (ABNORMAL) eGFR (03/20/2023 9:53 PM CDT) eGFR 46(L) 90 - 130 mL/min/1. 73 m2 [facility] Comment: Interpretive Data Reference Interval Normal [...] Huang MD LAB BLOOD ORDERABLES Final Result [facility] [place] [address] * Magnesium (03/20/2023 9:53 PM CDT) [facility] Magnesium 1.7 1.4 - 2.5 mg/dL [facility] Blood 03/20/2023 9:53 PM CDT 03/20/2023 10:19 PM CDT Gordon Huang MD LAB BLOOD ORDERABLES Final Result Performing Organization Address [facility] Co de Phone Number [facility] [place] [address] * (ABNORMAL) CBC without differential (03/20/2023 9:53 PM CDT) [facility] WBC 5.8 3.8 - 9.9 K/cumm [facility] Hgb 8.7(L) 11.9 - 15.5 g/dL [facility] Hct 26.9(L) 35.6 - 45.5 % [facility] Plt 216 150 - 400 K/cumm [facility] MPV 11.3 9.1 - 12.3 fL [facility] RBC 3.00(L) 3.90 - 5.20 M/cumm [facility] MCV 89.7 81.3 - 96.4 fL [facility] MCH 29.0 27.1 - 33.3 pg [facility] MCHC 32.3 32.3 - 35.7 g/dL [facility] RDW CV 15.9(H) 11.1 - 14.9 % [facility] RDW SD 51.5(H) 35.7 - 48.1 fL [facility] NRBC abs 0.00 0.00 - 0.01 K/cumm [facility] Blood 03/20/2023 9:53 PM CDT 03/20/2023 10:19 PM CDT us Gordon Huang MD LAB BLOOD ORDERABLES Final Result [facility] Department [place] [address] * (ABNORMAL) Basic metabolic panel (03/20/2023 9:53 PM CDT) [facility] Sodium 141 135 - 145 mmol/L [facility] Potassium, pl 3.4 3.3 - 4.9 mmol/L [facility] Chloride 106 97 - 110 mmol/L [facility] CO2 28 22 - 32 mmol/L [facility] Anion gap 7 2 - 15 mmol/L [facility] BUN 8 6 - 25 mg/dL [facility] Creatinine 1.22(H) 0.60 - 1.10 mg/dL [facility] Glucose 112 70 - 199 mg/dL [facility] Comment: Interpretive Data Fasting glucose >/= [...] Calcium 9.3 8.5 - 10.3 mg/dL [facility] Blood 03/20/2023 9:53 PM CDT 03/20/2023 10:19 PM CDT Gordon Huang MD LAB BLOOD ORDERABLES Final Result Performing Organization Address City/[facility]/ZIP Co de Phone Number [facility] Department [place] [address] * XR Wrist Right 2 Views (03/20/2023 [...] (ABNORMAL) eGFR (03/19/2023 9:43 PM CDT) Pathologist [facility] eGFR 38(L) 90 - 130 mL/min/1. 73 m2 [facility] Comment: Interpretive Data Reference Interval Normal ?>/= [...] MD LAB BLOOD ORDERABLES Fi nal Result [facility] Department [place] [address] * (ABNORMAL) CBC without differential (03/19/2023 9:43 PM CDT) WBC 6.1 3.8 - 9.9 K/cumm [facility] Hgb 8.5(L) 11.9 - 15.5 g/dL [facility] Hct 25.8(L) 35.6 - 45.5 % [facility] Plt 196 150 - 400 K/cumm [facility] MPV 11.5 9.1 - 12.3 fL [facility] RBC 2.88(L) 3.90 - 5.20 M/cumm [facility] MCV 89.6 81.3 - 96.4 fL [facility] MCH 29.5 27.1 - 33.3 pg [facility] MCHC 32.9 32.3 - 35.7 g/dL [facility] RDW CV 15.7(H) 11.1 - 14.9 % [facility] RDW SD 51.7(H) 35.7 - 48.1 fL [facility] NRBC abs 0.00 0.00 - 0.01 K/cumm [facility] Blood 03/19/2023 9:43 PM CDT 03/19/2023 10:24 PM CDT us Benjamín Mancuso MD LAB BLOOD ORDERABLES Fi nal Result Performing Organization Address [facility]/ZIP Co de Phone Number [facility] Department [place] [address] * (ABNORMAL) Basic metabolic panel (03/19/2023 9:43 PM CDT) [facility] Sodium 141 135 - 145 mmol/L [facility] Potassium, pl 3.5 3.3 - 4.9 mmol/L [facility] Chloride 106 97 - 110 mmol/L [facility] CO2 28 22 - 32 mmol/L [facility] Anion gap 7 2 - 15 mmol/L [facility] BUN 7 6 - 25 mg/dL [facility] Creatinine 1.42(H) 0.60 - 1.10 mg/dL [facility] Glucose 108 70 - 199 mg/dL [facility] Comment: Interpretive Data Fasting glucose >/= [...] Calcium 9.3 8.5 - 10.3 mg/dL [facility] Blood 03/19/2023 9:43 PM CDT 03/19/2023 10:24 PM CDT us Benjamín Mancuso MD LAB BLOOD ORDERABLES Fi nal Result Performing Organization Address City/[facility]/ZIP Co de Phone Number [facility] Department [place] [address] * Magnesium (03/19/2023 9:43 PM CDT) [facility] Magnesium 1.9 1.4 - 2.5 mg/dL [facility] Blood 03/19/2023 9:43 PM CDT 03/19/2023 10:24 PM CDT us Estella Ellis MD PhD LAB BLOOD ORDERABL ES Final Result Performing Organization Address [facility] Co de Phone Number [facility] [place] [address] * (ABNORMAL) eGFR (03/18/2023 9:59 PM CDT) [facility] eGFR 44(L) 90 - 130 mL/min/1. 73 m2 [facility] Comment: Interpretive Data Reference Interval Normal [...] ORDERABLES Fi nal Result Performing Organization Address City/[facility]/ZIP Co de Phone Number [facility] Department [place] [address] * (ABNORMAL) CBC without differential (03/18/2023 9:59 PM CDT) [facility] WBC 5.4 3.8 - 9.9 K/cumm [facility] Hgb 8.5(L) 11.9 - 15.5 g/dL [facility] Hct 26.0(L) 35.6 - 45.5 % [facility] Plt 171 150 - 400 K/cumm [facility] MPV 11.3 9.1 - 12.3 fL [facility] RBC 2.92(L) 3.90 - 5.20 M/cumm [facility] MCV 89.0 81.3 - 96.4 fL [facility] MCH 29.1 27.1 - 33.3 pg [facility] MCHC 32.7 32.3 - 35.7 g/dL [facility] RDW CV 15.8(H) 11.1 - 14.9 % [facility] RDW SD 51.5(H) 35.7 - 48.1 fL [facility] NRBC abs 0.00 0.00 - 0.01 K/cumm [facility] Blood 03/18/2023 9:59 PM CDT 03/18/2023 10:23 PM CDT Benjamín Mancuso MD LAB BLOOD ORDERABLES Fi nal Result [facility] [place] [address] * (ABNORMAL) Basic metabolic panel (03/18/2023 9:59 PM CDT) Sodium 140 135 - 145 mmol/L [facility] Potassium, pl 3.6 3.3 - 4.9 mmol/L [facility] Chloride 105 97 - 110 mmol/L [facility] CO2 27 22 - 32 mmol/L [facility] Anion gap 8 2 - 15 mmol/L [facility] BUN 5(L) 6 - 25 mg/dL [facility] Creatinine 1.26(H) 0.60 - 1.10 mg/dL [facility] Glucose 97 70 - 199 mg/dL [facility] Comment: Interpretive Data Fasting glucose >/= [...] Calcium 9.2 8.5 - 10.3 mg/dL [facility] Blood 03/18/2023 9:59 PM CDT 03/18/2023 10:22 PM CDT us Benjamín Mancuso MD LAB BLOOD ORDERABLES Fi nal Result [facility] Department [place] [address] * Magnesium (03/18/2023 9:59 PM CDT) Magnesium 2.2 1.4 - 2.5 mg/dL [facility] Blood 03/18/2023 9:59 PM CDT 03/18/2023 10:22 PM CDT us Estella Ellis MD PhD LAB BLOOD ORDERABL ES Final Result Performing Organization Address [facility] Co de Phone Number [facility] Department [place] [address] * (ABNORMAL) eGFR (03/17/2023 7:58 PM CDT) eGFR 47(L) 90 - 130 mL/min/1. 73 m2 [facility] Comment: Interpretive Data Reference Interval Normal [...] ORDERABLES Fi nal Result Performing Organization Address [facility]/State/ZIP Co de Phone Number [facility] RAMIRE[facility] Department [place] [address] * (ABNORMAL) CBC without differential (03/17/2023 7:58 PM CDT) [facility] WBC 4.9 3.8 - 9.9 K/cumm [facility] Hgb 8.2(L) 11.9 - 15.5 g/dL [facility] Hct 25.5(L) 35.6 - 45.5 % [facility] Plt 115(L) 150 - 400 K/cumm [facility] MPV 11.8 9.1 - 12.3 fL [facility] RBC 2.89(L) 3.90 - 5.20 M/cumm [facility] MCV 88.2 81.3 - 96.4 fL [facility] MCH 28.4 27.1 - 33.3 pg [facility] MCHC 32.2(L) 32.3 - 35.7 g/dL [facility] RDW CV 15.9(H) 11.1 - 14.9 % [facility] RDW SD 52.0(H) 35.7 - 48.1 fL [facility] NRBC abs 0.00 0.00 - 0.01 K/cumm [facility] Blood 03/17/2023 7:58 PM CDT 03/17/2023 8:52 PM CDT us Benjamín Mancuso MD LAB BLOOD ORDERABLES Fi nal Result [facility] Department [place] [address] * (ABNORMAL) Basic metabolic panel (03/17/2023 7:58 PM CDT) [facility] Sodium 141 135 - 145 mmol/L [facility] Potassium, pl 3.3 3.3 - 4.9 mmol/L [facility] Chloride 104 97 - 110 mmol/L [facility] CO2 26 22 - 32 mmol/L [facility] Anion gap 11 2 - 15 mmol/L [facility] BUN 4(L) 6 - 25 mg/dL [facility] Creatinine 1.19(H) 0.60 - 1.10 mg/dL [facility] Glucose 83 70 - 199 mg/dL [facility] Comment: Interpretive Data Fasting glucose >/= [...] 2022. Calcium 9.0 8.5 - 10.3 mg/dL [facility] Blood 03/17/2023 7:58 PM CDT 03/17/2023 8:52 PM CDT Benjamín Mancuso MD LAB BLOOD ORDERABLES Fi nal Result Performing Organization Address City/[facility]/ZIP Co de Phone Number [facility] Department [place] [address] * Magnesium (03/17/2023 7:58 PM CDT) Pathologist [facility] Magnesium 1.4 1.4 - 2.5 mg/dL [facility] Blood 03/17/2023 7:58 PM CDT 03/17/2023 8:52 PM CDT Estella Ellis MD PhD LAB BLOOD ORDERABL ES Final Result Performing Organization Address City/[facility] Co de Phone Number [facility] Department [place] [address] * Immunofixation, urine (03/17/2023 11:31 AM CDT) Immunofixation, Ur Please see comment [facility] Comment: NO PARAPROTEIN DETECTED Reviewed and signed by Braxton Donaldson MD 03/18/2023 Urine 03/17/2023 11:3 1 AM CDT 03/17/2023 12:26 PM CDT Gordon Huang MD LAB URINE ORDERABLES Final Result Performing Organization Address [facility] de Phone Number [facility] [place] [address] * (ABNORMAL) Urinalysis, microscopic only (03/17/2023 11:31 AM CDT) WBC, ur 21-50(A) 0 - 5 /HPF [facility] RBC, ur 0-2 0 - 2 /HPF [facility] Epithelial cells, squamous, ur 1-5 0 - 5 /HPF [facility] Mucous, ur Present(A) [facility] Urine 03/17/2023 11:3 1 AM CDT 03/17/2023 12:21 PM CDT Gordon Huang MD LAB URINE ORDERABLES Final Result Performing Organization Address [facility] de Phone Number [facility] [place] [address] * (ABNORMAL) Protein / creatinine ratio, urine, random (03/17/2023 11:31 AM CDT) Protein, ur, quant 51.6 mg/dL [facility] Comment: Interpretive Data No reference range established. Current interpretive data was last revised 2018. Creatinine Ur 47.2 mg/dL [facility] Comment: Interpretive Data No reference range established. Current interpretive data was last revised 2018. Protein/creatinin e ratio 1,093.2(H ) 0.0 - 180.0 mg/g CR [facility] Urine 03/17/2023 11:3 1 AM CDT 03/17/2023 12:26 PM CDT Gordon Huang MD LAB URINE ORDERABLES Final Result Performing Organization Address [facility]/State/ZIP Co de Phone Number [facility] Department [place] [address] * (ABNORMAL) Urinalysis reflex to microscopic (03/17/2023 11:31 AM CDT) Color, ur Yellow Yellow [facility] Clarity, ur Cloudy(A) Clear [facility] Specific gravity, ur 1.021 1.003 - 1.030 [facility] pH, urine 7.0 [facility] Comment: Interpretive Data ? Urine pH is affected by diet, medications, systemic acid-base disturbances, and renal tubular function. ??pH may affect urinary stone formation. ??For example, urine pH below 6.0 may help reduce the tendency for calcium phosphate stones and pH greater than 6.0 may reduce the tendency for uric acid stone formation. Source: [facility] Current Interpretive Data was last revised on 2017 Protein, ur ql 1+(A) Negative [facility] Glucose, ur ql Negative Negative [facility] Ketones, ur 1+(A) Negative [facility] Bilirubin, ur Negative Negative [facility] Blood, ur 1+(A) Negative [facility] Urobilinogen, ur <2.0 <2.0 mg/dL [facility] Nitrite, ur Negative Negative [facility] Leukocyte esterase, ur 3+(A) Negative [facility] UA reflex comment Reflex to microscopic UA will be performed. [facility] Urine 03/17/2023 11:3 1 AM CDT 03/17/2023 12:21 PM CDT us Gordon Huang MD LAB URINE ORDERABLES Final Result [facility] Department [place] [address] * (ABNORMAL) Immunoglobulin free light chains (03/17/2023 11:31 AM CDT) [place]/Lambda ratio 1.24 0.26 - 1.65 [facility] [place] free light chain 2.92(H) 0.33 - 1.94 mg/dL [facility] Comment: Interpretive Data The Kana Ig [place] FLC assay procedure was used. Results from different manufacturers or methods may not be comparable. Serial testing should be performed using the same method. Lambda free light chain 2.35 0.57 - 2.63 mg/dL [facility] Comment: Interpretive Data The Kana Ig Lambda FLC assay procedure was used. Results from different manufacturers or methods may not be comparable. Serial testing should be performed using the same method. Blood 03/17/2023 11:3 1 AM CDT 03/17/2023 12:27 PM CDT Gordon Huang MD LAB BLOOD ORDERABLES Final Result Performing Organization Address [facility] Co de Phone Number [facility] Department [place] [address] * Immunotyping, serum (03/17/2023 11:31 AM CDT) Immunosubtraction Please see comment [facility] Comment: NO PARAPROTEIN DETECTED Reviewed and signed by Braxton Donaldson MD 03/18/2023 Blood 03/17/2023 11:3 1 AM CDT 03/17/2023 12:26 PM CDT Narrative [facility] - 03/18/2023 2:53 PM CDT Indication:->AL amyloidosis screen Gordon Huang MD LAB BLOOD ORDERABLES Final Result Performing Organization Address [facility] Co de Phone Number [facility] Department [place] [address] * CT Abdomen Pelvis W Contrast (03/16/2023 [...] 46(L) 90 - 130 mL/min/1. 73 m2 [facility] Comment: Interpretive Data Reference Interval Normal [...] ORDERABLES Fi nal Result Performing Organization Address [facility] Co de Phone Number [facility] [address] [place] [address] * (ABNORMAL) CBC without differential (03/16/2023 7:49 PM CDT) Pathologist [facility] WBC 3.9 3.8 - 9.9 K/cumm [facility] Hgb 8.0(L) 11.9 - 15.5 g/dL [facility] Hct 24.9(L) 35.6 - 45.5 % [facility] Plt 94(L) 150 - 400 K/cumm [facility] MPV 11.4 9.1 - 12.3 fL [facility] RBC 2.79(L) 3.90 - 5.20 M/cumm [facility] MCV 89.2 81.3 - 96.4 fL [facility] MCH 28.7 27.1 - 33.3 pg [facility] MCHC 32.1(L) 32.3 - 35.7 g/dL [facility] RDW CV 16.1(H) 11.1 - 14.9 % [facility] RDW SD 53.1(H) 35.7 - 48.1 fL [facility] NRBC abs 0.00 0.00 - 0.01 K/cumm [facility] Blood 03/16/2023 7:49 PM CDT 03/16/2023 8:55 PM CDT Benjamín Mancuso MD LAB BLOOD ORDERABLES Fi nal Result Performing Organization Address [facility]/ZIP Co de Phone Number [facility] [place] [address] * (ABNORMAL) Basic metabolic panel (03/16/2023 7:49 PM CDT) Sodium 142 135 - 145 mmol/L [facility] Potassium, pl 3.6 3.3 - 4.9 mmol/L [facility] Chloride 106 97 - 110 mmol/L [facility] CO2 25 22 - 32 mmol/L [facility] Anion gap 11 2 - 15 mmol/L [facility] BUN 5(L) 6 - 25 mg/dL [facility] Creatinine 1.23(H) 0.60 - 1.10 mg/dL [facility] Glucose 83 70 - 199 mg/dL [facility] Comment: Interpretive Data Fasting glucose >/= [...] Calcium 8.6 8.5 - 10.3 mg/dL [facility] Blood 03/16/2023 7:49 PM CDT 03/16/2023 8:55 PM CDT us Benjamín Mancuso MD LAB BLOOD ORDERABLES Fi nal Result [facility] Department [place] [address] * Magnesium (03/16/2023 7:49 PM CDT) Pathologist [facility] Magnesium 1.4 1.4 - 2.5 mg/dL [facility] Blood 03/16/2023 7:49 PM CDT 03/16/2023 8:55 PM CDT Estella Ellis MD PhD LAB BLOOD ORDERABL ES Final Result [facility] Department [place] [address] * Phosphorus (03/16/2023 7:49 PM CDT) [facility] Phosphorus, pl 2.3 2.3 - 4.5 mg/dL [facility] Blood 03/16/2023 7:49 PM CDT 03/16/2023 8:55 PM CDT Benjamín Mancuso MD LAB BLOOD ORDERABLES Fi nal Result Performing Organization Address City/[facility]/ZIP Co de Phone Number [facility] [place] [address] * (ABNORMAL) CBC without differential (03/16/2023 6:25 AM CDT) [facility] WBC 3.9 3.8 - 9.9 K/cumm [facility] Hgb 8.5(L) 11.9 - 15.5 g/dL [facility] Hct 26.2(L) 35.6 - 45.5 % [facility] Plt 89(L) 150 - 400 K/cumm [facility] MPV 11.0 9.1 - 12.3 fL [facility] RBC 2.92(L) 3.90 - 5.20 M/cumm [facility] MCV 89.7 81.3 - 96.4 fL [facility] MCH 29.1 27.1 - 33.3 pg [facility] MCHC 32.4 32.3 - 35.7 g/dL [facility] RDW CV 16.3(H) 11.1 - 14.9 % [facility] RDW SD 53.9(H) 35.7 - 48.1 fL [facility] NRBC abs 0.00 0.00 - 0.01 K/cumm [facility] Blood 03/16/2023 6:25 AM CDT 03/16/2023 7:22 AM CDT Benjamín Mancuso MD LAB BLOOD ORDERABLES Fi nal Result Performing Organization Address City/[facility]/ZIP Co de Phone Number [facility] Department [place] [address] * Transfuse RBC (03/16/2023 5:24 AM CDT) Blood Benjamín Mancuso MD BLOOD TRANSFUSION ORDER JASMYNE Final Result Performing Organization Address [facility] [place] [address] * Transfuse RBC: 1 Units (03/16/2023 5:24 AM CDT) Blood Benjamín Mancuso MD BLOOD TRANSFUSION ORDER JASMYNE Final Result * Prepare RBC: 1 Units (03/16/2023 1:11 AM CDT) Product code [id number] [facility] Unit Number [id number] [facility] Product Blood Type BNEG [facility] Dispense Status PRESUMED TRANSFUSED [facility] Blood 03/16/2023 1:11 AM CDT 03/16/2023 1:11 AM CDT Narrative [facility] - 03/17/2023 12:47 AM CDT Are special requirements needed? (All products are leukoreduced and CMV- safe)- >No Date required:-[id number] LRRBC # of [id number] Reasons:-Hgb <7 g/dL} Benjamín Mancuso MD BLOOD BANK PRODUCT ORDE RABLES Final Result Performing Organization Address [facility] Co de Phone Number [facility] [place] [address] * (ABNORMAL) CBC without differential (03/15/2023 11:49 PM CDT) WBC 3.8 3.8 - 9.9 K/cumm [facility] Hgb 6.9(L) 11.9 - 15.5 g/dL [facility] Hct 20.8(L) 35.6 - 45.5 % [facility] Plt 85(L) 150 - 400 K/cumm [facility] MPV 11.5 9.1 - 12.3 fL [facility] RBC 2.26(L) 3.90 - 5.20 M/cumm [facility] MCV 92.0 81.3 - 96.4 fL [facility] MCH 30.5 27.1 - 33.3 pg [facility] MCHC 33.2 32.3 - 35.7 g/dL [facility] RDW CV 15.2(H) 11.1 - 14.9 % [facility] RDW SD 51.1(H) 35.7 - 48.1 fL [facility] NRBC abs 0.00 0.00 - 0.01 K/cumm [facility] Blood 03/15/2023 11:4 9 PM CDT 03/16/2023 12:30 AM CDT Janneth Moore MD LAB BLOOD ORDERABLES Final Resul t Performing Organization Address City/[facility] de Phone Number [facility] Department [place] [address] * Type and screen (03/15/2023 11:49 PM CDT) Cheri, indirect Negative [facility] ABO Rh B Negative [facility] Blood 03/15/2023 11:4 9 PM CDT 03/16/2023 12:15 AM CDT Narrative [facility] - 03/16/2023 1:03 AM CDT Has the patient had Daratumumab or Isatuximab in the past 6 months?->Unknown Janneth Moore MD LAB BLOOD BANK TEST ORDERABLES F inal Result [facility] Department [place] [address] * (ABNORMAL) eGFR (03/15/2023 9:40 PM CDT) eGFR 38(L) 90 - 130 mL/min/1. 73 m2 [facility] Comment: Interpretive Data Reference Interval Normal [...] ORDERABLES Fi nal Result [facility] Department [place] [address] * (ABNORMAL) CBC without differential (03/15/2023 9:40 PM CDT) [facility] WBC 3.6(L) 3.8 - 9.9 K/cumm [facility] Hgb 6.9(L) 11.9 - 15.5 g/dL [facility] Hct 21.9(L) 35.6 - 45.5 % [facility] Plt 86(L) 150 - 400 K/cumm [facility] MPV 11.3 9.1 - 12.3 fL [facility] RBC 2.33(L) 3.90 - 5.20 M/cumm [facility] MCV 94.0 81.3 - 96.4 fL [facility] MCH 29.6 27.1 - 33.3 pg [facility] MCHC 31.5(L) 32.3 - 35.7 g/dL [facility] RDW CV 15.0(H) 11.1 - 14.9 % [facility] RDW SD 51.9(H) 35.7 - 48.1 fL [facility] NRBC abs 0.00 0.00 - 0.01 K/cumm [facility] Blood 03/15/2023 9:40 PM CDT 03/15/2023 10:25 PM CDT Benjamín Mancuso MD LAB BLOOD ORDERABLES nal Result [facility] Department [place] [address] * (ABNORMAL) Basic metabolic panel (03/15/2023 9:40 PM CDT) [facility] Sodium 141 135 - 145 mmol/L [facility] Potassium, pl 3.7 3.3 - 4.9 mmol/L [facility] Chloride 104 97 - 110 mmol/L [facility] CO2 27 22 - 32 mmol/L [facility] Anion gap 10 2 - 15 mmol/L [facility] BUN 6 6 - 25 mg/dL [facility] Creatinine 1.42(H) 0.60 - 1.10 mg/dL [facility] Glucose 83 70 - 199 mg/dL [facility] Comment: Interpretive Data Fasting glucose >/= [...] 2022. Calcium 8.7 8.5 - 10.3 mg/dL [facility] Blood 03/15/2023 9:40 PM CDT 03/15/2023 10:26 PM CDT Benjamín Mancuso MD LAB BLOOD ORDERABLES Fi nal Result Performing Organization Address [facility]/ZIP Co de Phone Number [facility] Department [place] [address] * Magnesium (03/15/2023 9:40 PM CDT) [facility] Magnesium 1.5 1.4 - 2.5 mg/dL [facility] Blood 03/15/2023 9:40 PM CDT 03/15/2023 10:26 PM CDT Estella Ellis MD PhD LAB BLOOD ORDERABL ES Final Result Performing Organization Address City/[facility]/ZIP Co de Phone Number [facility] Department [place] [address] * C. difficile testing Stool (03/15/2023 2:36 PM CDT) Pathologist [facility] Result Negative Negative [facility] Toxin Result Negative Negative [facility] C. diff result Negative, free toxin Negative, free toxin [facility] C. diff interp Negative for toxigenic Clostridioides (Clostridium) difficile. Analysis was performed using a glutamate dehydrogenase antigen detection assay combined with a C. difficile toxin detection assay. [facility] Stool 03/15/2023 2:36 PM CDT 03/15/2023 4:31 PM CDT Benjamín Mancuso MD LAB MICROBIOLOGY - GENE RAL ORDERABLES Final Result Performing Organization Address [facility] de Phone Number [facility] [place] [address] * VRE culture, surveillance Stool (03/15/2023 2:34 PM CDT) Report Final Report: Negative [facility] Stool 03/15/2023 2:34 PM CDT 03/15/2023 6:22 PM CDT Narrative [facility] - 03/17/2023 7:07 PM CDT Testing performed by [facility] ([phone]). us Benjamín Mancuso MD LAB MICROBIOLOGY - GENE RAL ORDERABLES Final Result Performing Organization Address [facility] de Phone Number [facility] [place] [address] * (ABNORMAL) eGFR (03/14/2023 8:00 PM CDT) eGFR 37(L) 90 - 130 mL/min/1. 73 m2 [facility] Comment: Interpretive Data Reference Interval Normal [...] MD LAB BLOOD ORDERABLES Fi nal Result [facility] Department [place] [address] * (ABNORMAL) Basic metabolic panel (03/14/2023 8:00 PM CDT) Sodium 140 135 - 145 mmol/L [facility] Potassium, pl 3.7 3.3 - 4.9 mmol/L [facility] Chloride 105 97 - 110 mmol/L [facility] CO2 27 22 - 32 mmol/L [facility] Anion gap 8 2 - 15 mmol/L [facility] BUN 7 6 - 25 mg/dL [facility] Creatinine 1.47(H) 0.60 - 1.10 mg/dL [facility] Glucose 103 70 - 199 mg/dL [facility] Comment: Interpretive Data Fasting glucose >/= [...] 2022. Calcium 8.5 8.5 - 10.3 mg/dL [facility] Blood 03/14/2023 8:00 PM CDT 03/14/2023 9:00 PM CDT us Benjamín Mancuso MD LAB BLOOD ORDERABLES Fi nal Result Performing Organization Address City/[facility]/ZIP Co de Phone Number [facility] [place] [place] [address] * Magnesium (03/14/2023 8:00 PM CDT) Pathologist [facility] Magnesium 1.7 1.4 - 2.5 mg/dL [facility] Blood 03/14/2023 8:00 PM CDT 03/14/2023 9:00 PM CDT [place] Ellis MD PhD LAB BLOOD ORDERABL ES Final Result Performing Organization Address [facility] de Phone Number [facility] [place] [address] * ECG 12 lead (03/14/2023 9:38 AM CDT) Ventricular Rate EKG/Min 121 BPM [facility] QRS-Interval (MSEC) 106 ms [facility] QT-Interval (MSEC) 346 ms [facility] QTc 491 ms [facility] R [place] 25 degrees [facility] T [place] 197 degrees [facility] Diagnosis Atrial fibrillation with rapid ventricular [...] ??Anterior leads Confirmed by SERVANDO GARCIA M.D ([id number]) on 03/14/2023 1:04:20 PM [facility] 03/14/2023 9:38 AM CDT 03/14/2023 1:04 PM CDT us Benjamín Mancuso MD ECG ORDERABLES Final R esult Performing Organization Address City/[facility]/ZIP Co de Phone Number [facility] * (ABNORMAL) eGFR (03/13/2023 8:26 PM CDT) eGFR 33(L) 90 - 130 mL/min/1. 73 m2 [facility] Comment: Interpretive Data Reference Interval Normal ?>/= [...] ORDERABLES Fi nal Result Performing Organization Address City/[facility]/ZIP Co de Phone Number [facility] Department [place] [address] * (ABNORMAL) Basic metabolic panel (03/13/2023 8:26 PM CDT) Sodium 140 135 - 145 mmol/L [facility] Potassium, pl 3.8 3.3 - 4.9 mmol/L [facility] Chloride 105 97 - 110 mmol/L [facility] CO2 26 22 - 32 mmol/L [facility] Anion gap 9 2 - 15 mmol/L [facility] BUN 8 6 - 25 mg/dL [facility] Creatinine 1.62(H) 0.60 - 1.10 mg/dL [facility] Glucose 93 70 - 199 mg/dL [facility] Comment: Interpretive Data Fasting glucose >/= [...] Calcium 8.8 8.5 - 10.3 mg/dL [facility] Blood 03/13/2023 8:26 PM CDT 03/13/2023 9:24 PM CDT us Benjamín Mancuso MD LAB BLOOD ORDERABLES Fi nal Result [facility] Department [place] [address] * Magnesium (03/13/2023 8:26 PM CDT) Pathologist [facility] Magnesium 1.7 1.4 - 2.5 mg/dL [facility] Blood 03/13/2023 8:26 PM CDT 03/13/2023 9:24 PM CDT Estella Ellis MD PhD LAB BLOOD ORDERABL ES Final Result [facility] Department [place] [address] * (ABNORMAL) CBC without differential (03/13/2023 10:43 AM CDT) Pathologist [facility] WBC 3.6(L) 3.8 - 9.9 K/cumm [facility] Hgb 8.2(L) 11.9 - 15.5 g/dL [facility] Hct 26.2(L) 35.6 - 45.5 % [facility] Plt 132(L) 150 - 400 K/cumm [facility] MPV 11.0 9.1 - 12.3 fL [facility] RBC 2.76(L) 3.90 - 5.20 M/cumm [facility] MCV 94.9 81.3 - 96.4 fL [facility] MCH 29.7 27.1 - 33.3 pg [facility] MCHC 31.3(L) 32.3 - 35.7 g/dL [facility] RDW CV 15.2(H) 11.1 - 14.9 % [facility] RDW SD 52.7(H) 35.7 - 48.1 fL [facility] NRBC abs 0.00 0.00 - 0.01 K/cumm [facility] Blood 03/13/2023 10:4 3 AM CDT 03/13/2023 11:31 AM CDT us Benjamín Mancuso MD LAB BLOOD ORDERABLES Fi nal Result [facility] Department [place] [address] * (ABNORMAL) eGFR (03/12/2023 8:30 PM CDT) Pathologist [facility] eGFR 31(L) 90 - 130 mL/min/1. 73 m2 [facility] Comment: Interpretive Data Reference Interval Normal [...] MD LAB BLOOD ORDERABLES Fi nal Result [facility] Department [place] [address] * (ABNORMAL) Basic metabolic panel (03/12/2023 8:30 PM CDT) Sodium 139 135 - 145 mmol/L [facility] Potassium, pl 4.1 3.3 - 4.9 mmol/L [facility] Chloride 103 97 - 110 mmol/L [facility] CO2 27 22 - 32 mmol/L [facility] Anion gap 9 2 - 15 mmol/L [facility] BUN 9 6 - 25 mg/dL [facility] Creatinine 1.69(H) 0.60 - 1.10 mg/dL [facility] Glucose 93 70 - 199 mg/dL [facility] Comment: Interpretive Data Fasting glucose >/= [...] Calcium 9.2 8.5 - 10.3 mg/dL [facility] Blood 03/12/2023 8:30 PM CDT 03/12/2023 9:25 PM CDT us Benjamín Mancuso MD LAB BLOOD ORDERABLES Fi nal Result Performing Organization Address City/[facility]/ZIP Co de Phone Number [facility] Department [place] [address] * Magnesium (03/12/2023 8:30 PM CDT) Magnesium 1.8 1.4 - 2.5 mg/dL [facility] Blood 03/12/2023 8:30 PM CDT 03/12/2023 9:25 PM CDT us Estella Ellis MD PhD LAB BLOOD ORDERABL ES Final Result Performing Organization Address City/[facility]/ZIP Co de Phone Number [facility] [place] [address] * Urinalysis reflex to microscopic (03/12/2023 2:36 AM CDT) Color, ur Straw Yellow [facility] Clarity, ur Clear Clear [facility] Specific gravity, ur 1.013 1.003 - 1.030 [facility] pH, urine 7.0 [facility] Comment: Interpretive Data ? Urine pH is affected by diet, medications, systemic acid-base disturbances, and renal tubular function. ??pH may affect urinary stone formation. ??For example, urine pH below 6.0 may help reduce the tendency for calcium phosphate stones and pH greater than 6.0 may reduce the tendency for uric acid stone formation. Source: [facility] [employer] Current Interpretive Data was last revised on 2017 Protein, ur ql Negative Negative [facility] Glucose, ur ql Negative Negative [facility] Ketones, ur Negative Negative [facility] Bilirubin, ur Negative Negative [facility] Blood, ur Negative Negative [facility] Urobilinogen, ur <2.0 <2.0 mg/dL [facility] Nitrite, ur Negative Negative [facility] Leukocyte esterase, ur Negative Negative [facility] UA reflex comment Reflex conditions for microscopic UA not met. [facility] Urine 03/12/2023 2:36 AM CDT 03/12/2023 3:18 AM CDT us Benjamín Mancuso MD LAB URINE ORDERABLES Fi nal Result Performing Organization Address City/State/[facility] Co de Phone Number [facility] Department [place] [address] * (ABNORMAL) eGFR (03/11/2023 9:50 PM CDT) eGFR 27(L) 90 - 130 mL/min/1. 73 m2 [facility] Comment: Interpretive Data Reference Interval Normal [...] MD LAB BLOOD ORDERABLES Fi nal Result [facility] Department [place] [address] * (ABNORMAL) Basic metabolic panel (03/11/2023 9:50 PM CDT) [facility] Sodium 139 135 - 145 mmol/L [facility] Potassium, pl 4.3 3.3 - 4.9 mmol/L [facility] Chloride 104 97 - 110 mmol/L [facility] CO2 25 22 - 32 mmol/L [facility] Anion gap 10 2 - 15 mmol/L [facility] BUN 10 6 - 25 mg/dL [facility] Creatinine 1.88(H) 0.60 - 1.10 mg/dL [facility] Glucose 82 70 - 199 mg/dL [facility] Comment: Interpretive Data Fasting glucose >/= [...] 2022. Calcium 9.0 8.5 - 10.3 mg/dL [facility] Blood 03/11/2023 9:50 PM CDT 03/11/2023 10:28 PM CDT us Benjamín Mancuso MD LAB BLOOD ORDERABLES Fi nal Result Performing Organization Address City/[facility]/ZIP Co de Phone Number [facility] Department [place] [address] * Magnesium (03/11/2023 9:50 PM CDT) Magnesium 1.9 1.4 - 2.5 mg/dL [facility] Blood 03/11/2023 9:50 PM CDT 03/11/2023 10:28 PM CDT us Estella Ellis MD PhD LAB BLOOD ORDERABL ES Final Result Performing Organization Address [facility] de Phone Number [facility] Department [place] [address] * XR Abdomen Ap 1 Vw (03/11/2023 [...] abs 1.5 0.8 - 3.3 K/cumm [facility] Monocyte abs 0.2 0.2 - 0.8 K/cumm [facility] Eosinophil abs 0.6(H) 0.0 - 0.5 K/cumm [facility] Basophil abs 0.1 0.0 - 0.1 K/cumm [facility] Neutrophil pct 50.2 % [facility] Comment: Confirmed by smear review Interpretive Data Percent cell count reference ranges are not reported, since discordance with absolute values may lead to misinterpretation of CBC data. Current Interpretive Data was last revised on 2017. Imm gran pct 0.4 % [facility] Comment: Interpretive Data Percent cell count reference ranges are not reported, since discordance with absolute values may lead to misinterpretation of CBC data. Current Interpretive Data was last revised on 2017. Lymphocyte pct 31.7 % [facility] Comment: Interpretive Data Percent cell count reference ranges are not reported, since discordance with absolute values may lead to misinterpretation of CBC data. Current Interpretive Data was last revised on 2017. Monocyte pct 3.9 % [facility] Comment: Interpretive Data Percent cell count reference ranges are not reported, since discordance with absolute values may lead to misinterpretation of CBC data. Current Interpretive Data was last revised on 2017. Eosinophil pct 12.4 % [facility] Comment: Interpretive Data Percent cell count reference ranges are not reported, since discordance with absolute values may lead to misinterpretation of CBC data. Current Interpretive Data was last revised on 2017. Basophil pct 1.4 % [facility] Comment: Interpretive Data Percent cell count reference ranges are not reported, since discordance with absolute values may lead to misinterpretation of CBC data. Current Interpretive Data was last revised on 2017. Blood 03/11/2023 10:5 1 AM CDT 03/11/2023 11:25 AM CDT us Benjamín Mancuso MD LAB BLOOD ORDERABLES nal Result [facility] Department [place] [address] * (ABNORMAL) CBC with auto differential (03/11/2023 10:51 AM CDT) WBC 4.8 3.8 - 9.9 K/cumm [facility] Hgb 9.8(L) 11.9 - 15.5 g/dL [facility] Hct 31.0(L) 35.6 - 45.5 % [facility] Plt 175 150 - 400 K/cumm [facility] MPV 13.3(H) 9.1 - 12.3 fL [facility] RBC 3.26(L) 3.90 - 5.20 M/cumm [facility] MCV 95.1 81.3 - 96.4 fL [facility] MCH 30.1 27.1 - 33.3 pg [facility] MCHC 31.6(L) 32.3 - 35.7 g/dL [facility] RDW CV 14.9 11.1 - 14.9 % [facility] RDW SD 51.9(H) 35.7 - 48.1 fL [facility] NRBC abs 0.00 0.00 - 0.01 K/cumm [facility] Blood 03/11/2023 10:5 1 AM CDT 03/11/2023 11:25 AM CDT Benjamín Mancuso MD LAB BLOOD ORDERABLES Fi nal Result Performing Organization Address [facility] de Phone Number [facility] Department [place] [address] * (ABNORMAL) Cortisol (03/11/2023 9:11 AM CDT) [facility] Cortisol 21.5(H) 4.8 - 19.5 mcg/dL [facility] Comment: Interpretive Data: Morning hours 6-10 a.m. ??4.8 - 19.5 mcg/dL Afternoon hours 4-8 p.m. ??2.68 - 10.5 mcg/dL This analyte undergoes marked diurnal variation. Current interpretive data was last revised 21. Blood 03/11/2023 9:11 AM CDT 03/11/2023 11:25 AM CDT Benjamín Mancuso MD LAB BLOOD ORDERABLES Fi nal Result Performing Organization Address [facility] Co de Phone Number [facility] Department [place] [address] * (ABNORMAL) eGFR (03/10/2023 8:13 PM CDT) eGFR 27(L) 90 - 130 mL/min/1. 73 m2 [facility] Comment: Interpretive Data Reference Interval Normal [...] MD LAB BLOOD ORDERABLES Fi nal Result [facility] Department [place] [address] * Magnesium (03/10/2023 8:13 PM CDT) Magnesium 1.8 1.4 - 2.5 mg/dL [facility] Blood 03/10/2023 8:13 PM CDT 03/10/2023 8:51 PM CDT us Estella Ellis MD PhD LAB BLOOD ORDERABL ES Final Result [facility] Department [place] [address] * (ABNORMAL) Basic metabolic panel (03/10/2023 8:13 PM CDT) [facility] Sodium 138 135 - 145 mmol/L [facility] Potassium, pl 4.4 3.3 - 4.9 mmol/L [facility] Chloride 102 97 - 110 mmol/L [facility] CO2 27 22 - 32 mmol/L [facility] Anion gap 9 2 - 15 mmol/L [facility] BUN 9 6 - 25 mg/dL [facility] Creatinine 1.89(H) 0.60 - 1.10 mg/dL [facility] Glucose 99 70 - 199 mg/dL [facility] Comment: Interpretive Data Fasting glucose >/= [...] 2022. Calcium 9.1 8.5 - 10.3 mg/dL [facility] Blood 03/10/2023 8:13 PM CDT 03/10/2023 8:51 PM CDT us Benjamín Mancuso MD LAB BLOOD ORDERABLES Fi nal Result Performing Organization Address [facility]/ZIP Co de Phone Number [facility] Department [place] [address] * (ABNORMAL) eGFR (03/10/2023 8:07 AM CDT) Pathologist [facility] eGFR 28(L) 90 - 130 mL/min/1. 73 m2 [facility] Comment: Interpretive Data Reference Interval Normal [...] MD LAB BLOOD ORDERABLES Fi nal Result [facility] Department [place] [address] * (ABNORMAL) Basic metabolic panel (03/10/2023 8:07 AM CDT) [facility] Sodium 139 135 - 145 mmol/L [facility] Potassium, pl 4.4 3.3 - 4.9 mmol/L [facility] Chloride 103 97 - 110 mmol/L [facility] CO2 28 22 - 32 mmol/L [facility] Anion gap 8 2 - 15 mmol/L [facility] BUN 8 6 - 25 mg/dL [facility] Creatinine 1.86(H) 0.60 - 1.10 mg/dL [facility] Glucose 87 70 - 199 mg/dL [facility] Comment: Interpretive Data Fasting glucose >/= [...] Calcium 9.2 8.5 - 10.3 mg/dL [facility] Blood 03/10/2023 8:07 AM CDT 03/10/2023 8:55 AM CDT us Benjamín Mancuso MD LAB BLOOD ORDERABLES Fi nal Result [facility] Department [place] [address] * (ABNORMAL) Cortisol, saliva (03/09/2023 11:07 PM CDT) Cortisol, Saliva Not Reported [facility] Cortisol, AM, saliva Not Reported [facility] Cortisol, PM, saliva Not Reported [facility] Cortisol, mid, saliva 415(H) <100 ng/dL [facility] Comment: ADDITIONAL INFORMATION This test was developed and its performance characteristics determined by [facility] in a manner consistent with CLIA requirements. This test has not been cleared or approved by the U.S. Food and Drug Administration. Test Performed by: [facility] [address] [place] [address] Winding Machine Operator: Leno Nogueira M.D. Ph.D.; IA# [id number] Saliva 03/09/2023 11:0 7 PM CDT 03/10/2023 2:27 AM CDT us Benjamín Mancuso MD LAB BODY FLUIDS AND STO OLS ORDERABLES Final Result Performing Organization Address City/State/[facility] Co de Phone Number [facility] Department [place] [address] * (ABNORMAL) eGFR (03/09/2023 8:13 PM CDT) eGFR 27(L) 90 - 130 mL/min/1. 73 m2 [facility] Comment: Interpretive Data Reference Interval Normal [...] MD LAB BLOOD ORDERABLES Fi nal Result [facility] Department [place] [address] * Magnesium (03/09/2023 8:13 PM CDT) Pathologist [facility] Magnesium 1.9 1.4 - 2.5 mg/dL [facility] Blood 03/09/2023 8:13 PM CDT 03/09/2023 9:31 PM CDT Estella Ellis MD PhD LAB BLOOD ORDERABL ES Final Result Performing Organization Address [facility] Co de Phone Number [facility] [place] [address] * (ABNORMAL) Basic metabolic panel (03/09/2023 8:13 PM CDT) Sodium 138 135 - 145 mmol/L [facility] Potassium, pl 4.4 3.3 - 4.9 mmol/L [facility] Chloride 103 97 - 110 mmol/L [facility] CO2 27 22 - 32 mmol/L [facility] Anion gap 8 2 - 15 mmol/L [facility] BUN 8 6 - 25 mg/dL [facility] Creatinine 1.90(H) 0.60 - 1.10 mg/dL [facility] Glucose 86 70 - 199 mg/dL [facility] Comment: Interpretive Data Fasting glucose >/= [...] 2022. Calcium 9.1 8.5 - 10.3 mg/dL [facility] Blood 03/09/2023 8:13 PM CDT 03/09/2023 9:31 PM CDT us Benjamín Mancuso MD LAB BLOOD ORDERABLES Fi nal Result [facility] Department [place] [address] * Differential, auto (03/09/2023 1:52 PM CDT) Neutrophil abs 1.7 1.7 - 6.5 K/cumm [facility] Imm gran abs 0.0 0.0 - 0.1 K/cumm [facility] Lymphocyte abs 0.9 0.8 - 3.3 K/cumm [facility] Monocyte abs 0.3 0.2 - 0.8 K/cumm [facility] Eosinophil abs 0.4 0.0 - 0.5 K/cumm [facility] Basophil abs 0.0 0.0 - 0.1 K/cumm [facility] Neutrophil pct 51.6 % [facility] Comment: Interpretive Data Percent cell count reference ranges are not reported, since discordance with absolute values may lead to misinterpretation of CBC data. Current Interpretive Data was last revised on 2017. Imm gran pct 0.3 % [facility] Comment: Interpretive Data Percent cell count reference ranges are not reported, since discordance with absolute values may lead to misinterpretation of CBC data. Current Interpretive Data was last revised on 2017. Lymphocyte pct 26.4 % [facility] Comment: Interpretive Data Percent cell count reference ranges are not reported, since discordance with absolute values may lead to misinterpretation of CBC data. Current Interpretive Data was last revised on 2017. Monocyte pct 8.9 % [facility] Comment: Interpretive Data Percent cell count reference ranges are not reported, since discordance with absolute values may lead to misinterpretation of CBC data. Current Interpretive Data was last revised on 2017. Eosinophil pct 11.6 % [facility] Comment: Interpretive Data Percent cell count reference ranges are not reported, since discordance with absolute values may lead to misinterpretation of CBC data. Current Interpretive Data was last revised on 2017. Basophil pct 1.2 % [facility] Comment: Interpretive Data Percent cell count reference ranges are not reported, since discordance with absolute values may lead to misinterpretation of CBC data. Current Interpretive Data was last revised on 2017. Blood 03/09/2023 1:52 PM CDT 03/09/2023 2:17 PM CDT us Benjamín Mancuso MD LAB BLOOD ORDERABLES Fi nal Result [facility] [place] [address] * (ABNORMAL) CBC with auto differential (03/09/2023 1:52 PM CDT) WBC 3.4(L) 3.8 - 9.9 K/cumm [facility] Hgb 7.5(L) 11.9 - 15.5 g/dL [facility] Hct 24.1(L) 35.6 - 45.5 % [facility] Plt 175 150 - 400 K/cumm [facility] MPV 11.4 9.1 - 12.3 fL [facility] RBC 2.52(L) 3.90 - 5.20 M/cumm [facility] MCV 95.6 81.3 - 96.4 fL [facility] MCH 29.8 27.1 - 33.3 pg [facility] MCHC 31.1(L) 32.3 - 35.7 g/dL [facility] RDW CV 15.1(H) 11.1 - 14.9 % [facility] RDW SD 53.1(H) 35.7 - 48.1 fL [facility] NRBC abs 0.00 0.00 - 0.01 K/cumm [facility] Blood 03/09/2023 1:52 PM CDT 03/09/2023 2:17 PM CDT us Benjamín Mancuso MD LAB BLOOD ORDERABLES Fi nal Result Performing Organization Address [facility] Co de Phone Number [facility] Department [place] [address] * ECG 12 lead (03/09/2023 11:09 AM CDT) Ventricular Rate EKG/Min 63 BPM [facility] Atrial Rate 63 BPM [facility] MN-Interval (MSEC) 164 ms [facility] QRS-Interval (MSEC) 120 ms [facility] QT-Interval (MSEC) 490 ms [facility] QTc 501 ms [facility] P [place] 30 degrees [facility] R [place] 24 degrees [facility] T [place] 152 degrees [facility] Diagnosis Normal sinus rhythm Non-specific intra-ventricula r conduction delay Minimal voltage criteria for LVH, may be normal variant ( [place] product ) ST & T wave abnormality, consider anterolateral ischemia Abnormal ECG No previous ECGs available Confirmed by EDWAR RODRIGUEZ M.D ([id number]) on 03/10/2023 3:01:24 PM [facility] 03/09/2023 11:0 9 AM CDT 03/10/2023 3:01 PM CDT us Benjamín Mancuso MD ECG ORDERABLES Final R esult Performing Organization Address [facility] de Phone Number [facility] * (ABNORMAL) eGFR (03/09/2023 8:22 AM CDT) Pathologist [facility] eGFR 26(L) 90 - 130 mL/min/1. 73 m2 [facility] Comment: Interpretive Data Reference Interval Normal [...] MD LAB BLOOD ORDERABLES Fi nal Result [facility] Department [place] [address] * (ABNORMAL) Basic metabolic panel (03/09/2023 8:22 AM CDT) Sodium 140 135 - 145 mmol/L [facility] Potassium, pl 4.4 3.3 - 4.9 mmol/L [facility] Chloride 104 97 - 110 mmol/L [facility] CO2 29 22 - 32 mmol/L [facility] Anion gap 7 2 - 15 mmol/L [facility] BUN 8 6 - 25 mg/dL [facility] Creatinine 1.99(H) 0.60 - 1.10 mg/dL [facility] Glucose 89 70 - 199 mg/dL [facility] Comment: Interpretive Data Fasting glucose >/= [...] MD LAB BLOOD ORDERABLES Fi nal Result [facility] Department [place] [address] * (ABNORMAL) eGFR (03/08/2023 8:29 PM CDT) eGFR 26(L) 90 - 130 mL/min/1. 73 m2 [facility] Comment: Interpretive Data Reference Interval Normal [...] ORDERABLES Fi nal Result Performing Organization Address City/[facility]/ZIP Co de Phone Number [facility] Department [place] [address] * Magnesium (03/08/2023 8:29 PM CDT) Magnesium 1.9 1.4 - 2.5 mg/dL [facility] Blood 03/08/2023 8:29 PM CDT 03/08/2023 9:25 PM CDT Estella Ellis MD PhD LAB BLOOD ORDERABL ES Final Result Performing Organization Address [facility] Co de Phone Number [facility] [place] [address] * (ABNORMAL) Basic metabolic panel (03/08/2023 8:29 PM CDT) Sodium 138 135 - 145 mmol/L [facility] Potassium, pl 4.2 3.3 - 4.9 mmol/L [facility] Chloride 103 97 - 110 mmol/L [facility] CO2 27 22 - 32 mmol/L [facility] Anion gap 8 2 - 15 mmol/L [facility] BUN 8 6 - 25 mg/dL [facility] Creatinine 1.97(H) 0.60 - 1.10 mg/dL [facility] Glucose 84 70 - 199 mg/dL [facility] Comment: Interpretive Data Fasting glucose >/= [...] MD LAB BLOOD ORDERABLES Fi nal Result [facility] Department [place] [address] * (ABNORMAL) eGFR (03/08/2023 8:58 AM CDT) eGFR 30(L) 90 - 130 mL/min/1. 73 m2 [facility] Comment: Interpretive Data Reference Interval Normal [...] ORDERABLES Fi nal Result Performing Organization Address City/[facility]/ZIP Co de Phone Number [facility] Department [place] [address] * (ABNORMAL) Basic metabolic panel (03/08/2023 8:58 AM CDT) [facility] Sodium 141 135 - 145 mmol/L [facility] Potassium, pl 4.1 3.3 - 4.9 mmol/L [facility] Chloride 106 97 - 110 mmol/L [facility] CO2 28 22 - 32 mmol/L [facility] Anion gap 7 2 - 15 mmol/L [facility] BUN 8 6 - 25 mg/dL [facility] Creatinine 1.74(H) 0.60 - 1.10 mg/dL [facility] Glucose 85 70 - 199 mg/dL [facility] Comment: Interpretive Data Fasting glucose >/= [...] 2022. Calcium 8.2(L) 8.5 - 10.3 mg/dL [facility] Blood 03/08/2023 8:58 AM CDT 03/08/2023 9:17 AM CDT Benjamín Mancuso MD LAB BLOOD ORDERABLES Fi nal Result Performing Organization Address City/[facility]/ZIP Co de Phone Number [facility] Department [place] [address] * MRI Brain WO Contrast (03/07/2023 10:57 [...] arteries and basilar artery. Procedure Note Eh Du MD - 03/08/2023 EXAMINATION: Magnetic resonance imaging [...] 31(L) 90 - 130 mL/min/1. 73 m2 [facility] Comment: Interpretive Data Reference Interval Normal [...] MD LAB BLOOD ORDERABLES Fi nal Result [facility] Department [place] [address] * Magnesium (03/07/2023 8:50 PM CDT) Magnesium 1.9 1.4 - 2.5 mg/dL [facility] Blood 03/07/2023 8:50 PM CDT 03/07/2023 9:54 PM CDT Estella Ellis MD PhD LAB BLOOD ORDERABL ES Final Result [facility] Department [place] [address] * (ABNORMAL) Basic metabolic panel (03/07/2023 8:50 PM CDT) Sodium 139 135 - 145 mmol/L [facility] Potassium, pl 4.3 3.3 - 4.9 mmol/L [facility] Chloride 102 97 - 110 mmol/L [facility] CO2 29 22 - 32 mmol/L [facility] Anion gap 8 2 - 15 mmol/L [facility] BUN 8 6 - 25 mg/dL [facility] Creatinine 1.70(H) 0.60 - 1.10 mg/dL [facility] Glucose 97 70 - 199 mg/dL [facility] Comment: Interpretive Data Fasting glucose >/= [...] Calcium 9.2 8.5 - 10.3 mg/dL [facility] Blood 03/07/2023 8:50 PM CDT 03/07/2023 9:54 PM CDT us Benjamín Mancuso MD LAB BLOOD ORDERABLES Fi nal Result Performing Organization Address City/[facility]/ZIP Co de Phone Number [facility] Department [place] [address] * (ABNORMAL) eGFR (03/07/2023 10:29 AM CDT) eGFR 30(L) 90 - 130 mL/min/1. 73 m2 [facility] Comment: Interpretive Data Reference Interval Normal [...] ORDERABLES Fi nal Result Performing Organization Address City/State/[facility] Co de Phone Number [facility] Department [place] [address] * (ABNORMAL) Basic metabolic panel (03/07/2023 10:29 AM CDT) Pathologist [facility] Sodium 139 135 - 145 mmol/L [facility] Potassium, pl 4.4 3.3 - 4.9 mmol/L [facility] Chloride 103 97 - 110 mmol/L [facility] CO2 29 22 - 32 mmol/L [facility] Anion gap 7 2 - 15 mmol/L [facility] BUN 9 6 - 25 mg/dL [facility] Creatinine 1.76(H) 0.60 - 1.10 mg/dL [facility] Glucose 92 70 - 199 mg/dL [facility] Comment: Interpretive Data Fasting glucose >/= [...] 2022. Calcium 9.1 8.5 - 10.3 mg/dL [facility] Blood 03/07/2023 10:2 9 AM CDT 03/07/2023 11:21 AM CDT Benjamín Mancuso MD LAB BLOOD ORDERABLES nal Result [facility] [place] [address] * (ABNORMAL) eGFR (03/06/2023 9:27 PM CDT) eGFR 28(L) 90 - 130 mL/min/1. 73 m2 [facility] Comment: Interpretive Data Reference Interval Normal [...] ORDERABLES Fi nal Result Performing Organization Address City/[facility]/ZIP Co de Phone Number [facility] Department [place] [address] * Magnesium (03/06/2023 9:27 PM CDT) Pathologist [facility] Magnesium 2.0 1.4 - 2.5 mg/dL [facility] Blood 03/06/2023 9:27 PM CDT 03/06/2023 10:29 PM CDT us Estella Ellis MD PhD LAB BLOOD ORDERABL ES Final Result Performing Organization Address City/[facility]/ZIP Co de Phone Number [facility] Department [place] [address] * (ABNORMAL) Basic metabolic panel (03/06/2023 9:27 PM CDT) Sodium 141 135 - 145 mmol/L [facility] Potassium, pl 4.1 3.3 - 4.9 mmol/L [facility] Chloride 105 97 - 110 mmol/L [facility] CO2 30 22 - 32 mmol/L [facility] Anion gap 6 2 - 15 mmol/L [facility] BUN 10 6 - 25 mg/dL [facility] Creatinine 1.82(H) 0.60 - 1.10 mg/dL [facility] Glucose 96 70 - 199 mg/dL [facility] Comment: Interpretive Data Fasting glucose >/= [...] 2022. Calcium 9.5 8.5 - 10.3 mg/dL [facility] Blood 03/06/2023 9:27 PM CDT 03/06/2023 10:29 PM CDT Benjamín Mancuso MD LAB BLOOD ORDERABLES Fi nal Result Performing Organization Address City/[facility]/ZIP Co de Phone Number [facility] Department [place] [address] * (ABNORMAL) Urinalysis, microscopic only (03/06/2023 3:41 PM CDT) Pathologist [facility] WBC, ur 0-5 0 - 5 /HPF [facility] RBC, ur 0-2 0 - 2 /HPF [facility] Epithelial cells, squamous, ur 1-5 0 - 5 /HPF [facility] Bacteria, ur Trace(A) [facility] Mucous, ur Present(A) [facility] Urine 03/06/2023 3:41 PM CDT 03/06/2023 4:19 PM CDT Benjamín Mancuso MD LAB URINE ORDERABLES Fi nal Result Performing Organization Address [facility] Co de Phone Number [facility] Department [place] [address] * (ABNORMAL) Urinalysis reflex to microscopic (03/06/2023 3:41 PM CDT) Color, ur Straw Yellow [facility] Clarity, ur Clear Clear [facility] Specific gravity, ur 1.012 1.003 - 1.030 [facility] pH, urine 6.0 [facility] Protein, ur ql Negative Negative [facility] Glucose, ur ql Negative Negative [facility] Ketones, ur Negative Negative [facility] Bilirubin, ur Negative Negative [facility] Blood, ur Negative Negative [facility] Urobilinogen, ur <2.0 <2.0 mg/dL [facility] Nitrite, ur Negative Negative [facility] Leukocyte esterase, ur 1+(A) Negative [facility] UA reflex comment Reflex to microscopic UA will be performed. [facility] Urine 03/06/2023 3:41 PM CDT 03/06/2023 4:19 PM CDT Narrative [facility] - 03/06/2023 4:39 PM CDT ?? Urine pH is affected by diet, medications, systemic acid-base disturbances, and renal tubular function. ??pH may affect urinary stone formation. ??For example, urine pH below 6.0 may help reduce the tendency for calcium phosphate stones and pH greater than 6.0 may reduce the tendency for uric acid stone formation. Source: [employer] [email or web address]). Last revised 06-26-2017 Urine pH is affected by diet, medications, systemic acid-base disturbances, and renal tubular function. ??pH may affect urinary stone formation. ??For example, urine pH below 6.0 may help reduce the tendency for calcium phosphate stones and pH greater than 6.0 may reduce the tendency for uric acid stone formation. Source: [employer] ([email or web address]). Last revised 06-26-2017 us Benjamín Mancuso MD LAB URINE ORDERABLES Fi nal Result [facility] Department [place] [address] * Creatinine, urine, random (03/06/2023 3:41 PM CDT) Creatinine Ur 81.4 mg/dL [facility] Comment: Interpretive Data No reference range established. Current interpretive data was last revised 2018. Urine 03/06/2023 3:41 PM CDT 03/06/2023 4:25 PM CDT Benjamín Mancuso MD LAB URINE ORDERABLES Fi nal Result Performing Organization Address [facility] de Phone Number [facility] [place] [address] * Sodium, urine, random (03/06/2023 3:41 PM CDT) Sodium, ur 70 mmol/L [facility] Comment: Interpretive Data No reference range established. Current interpretive data was last revised 2018. Urine (Urine, Clean Catch) 03/06/2023 3:41 PM CDT 03/06/2023 4:25 PM CDT Benjamín Mancuso MD LAB URINE ORDERABLES Fi nal Result Performing Organization Address [facility] de Phone Number [facility] [place] [address] * (ABNORMAL) eGFR (03/06/2023 8:39 AM CDT) eGFR 25(L) 90 - 130 mL/min/1. 73 m2 [facility] Comment: Interpretive Data Reference Interval Normal [...] MD LAB BLOOD ORDERABLES Fi nal Result [facility] Department [place] [address] * (ABNORMAL) Basic metabolic panel (03/06/2023 8:39 AM CDT) [facility] Sodium 139 135 - 145 mmol/L [facility] Potassium, pl 4.3 3.3 - 4.9 mmol/L [facility] Chloride 102 97 - 110 mmol/L [facility] CO2 30 22 - 32 mmol/L [facility] Anion gap 7 2 - 15 mmol/L [facility] BUN 12 6 - 25 mg/dL [facility] Creatinine 2.02(H) 0.60 - 1.10 mg/dL [facility] Glucose 90 70 - 199 mg/dL [facility] Comment: Interpretive Data Fasting glucose >/= [...] 2022. Calcium 9.1 8.5 - 10.3 mg/dL [facility] Blood 03/06/2023 8:39 AM CDT 03/06/2023 9:32 AM CDT Benjamín Mancuso MD LAB BLOOD ORDERABLES Fi nal Result Performing Organization Address City/[facility]/ZIP Co de Phone Number [facility] Department [place] [address] * ECG 12 lead (03/06/2023 1:47 AM CDT) Ventricular Rate EKG/Min 56 BPM [facility] Atrial Rate 56 BPM [facility] MN-Interval (MSEC) 192 ms [facility] QRS-Interval (MSEC) 108 ms [facility] QT-Interval (MSEC) 488 ms [facility] QTc 470 ms [facility] P [place] 19 degrees [facility] R [place] 21 degrees [facility] T [place] 149 degrees [facility] Diagnosis Sinus bradycardia ST & T wave abnormality, consider inferior ischemia ST & T wave abnormality, consider anterolateral ischemia Prolonged QT Abnormal ECG When compared with ECG of 04-MAR-2023 07:22, Sinus rhythm has replaced Atrial fibrillation Vent. rate has decreased BY ??70 BPM Confirmed by EDWAR RODRIGUEZ M.D ([id number]) on 03/06/2023 10:22:09 AM [facility] 03/06/2023 1:47 AM CDT 03/06/2023 10:22 AM CDT Franca Echevarria DO ECG ORDERABLES Fin al Result [facility] * (ABNORMAL) eGFR (03/05/2023 9:21 PM CDT) Pathologist [facility] eGFR 23(L) 90 - 130 mL/min/1. 73 m2 [facility] Comment: Interpretive Data Reference Interval Normal [...] ORDERABL ES Final Result Performing Organization Address [facility] de Phone Number [facility] Department [place] [address] * Magnesium (03/05/2023 9:21 PM CDT) Magnesium 2.1 1.4 - 2.5 mg/dL [facility] Blood 03/05/2023 9:21 PM CDT 03/05/2023 10:21 PM CDT Estella Ellis MD PhD LAB BLOOD ORDERABL ES Final Result Performing Organization Address [facility] Co de Phone Number [facility] Department [place] [address] * (ABNORMAL) Basic metabolic panel (03/05/2023 9:21 PM CDT) Pathologist [facility] Sodium 139 135 - 145 mmol/L [facility] Potassium, pl 4.4 3.3 - 4.9 mmol/L [facility] Chloride 102 97 - 110 mmol/L [facility] CO2 30 22 - 32 mmol/L [facility] Anion gap 7 2 - 15 mmol/L [facility] BUN 12 6 - 25 mg/dL [facility] Creatinine 2.16(H) 0.60 - 1.10 mg/dL [facility] Glucose 103 70 - 199 mg/dL [facility] Comment: Interpretive Data Fasting glucose >/= [...] Calcium 9.2 8.5 - 10.3 mg/dL [facility] Blood 03/05/2023 9:21 PM CDT 03/05/2023 10:21 PM CDT us Estella Ellis MD PhD LAB BLOOD ORDERABL ES Final Result [facility] Department [place] [address] * (ABNORMAL) eGFR (03/04/2023 8:34 PM CDT) [facility] eGFR 31(L) 90 - 130 mL/min/1. 73 m2 [facility] Comment: Interpretive Data Reference Interval Normal [...] ORDERABL ES Final Result Performing Organization Address [facility] Co de Phone Number [facility] Department [place] [address] * Magnesium (03/04/2023 8:34 PM CDT) Magnesium 2.3 1.4 - 2.5 mg/dL [facility] Blood 03/04/2023 8:34 PM CDT 03/04/2023 9:21 PM CDT Estella Ellis MD PhD LAB BLOOD ORDERABL ES Final Result Performing Organization Address City/[facility] Co de Phone Number [facility] Department [place] [address] * (ABNORMAL) Basic metabolic panel (03/04/2023 8:34 PM CDT) [facility] Sodium 142 135 - 145 mmol/L [facility] Potassium, pl 4.2 3.3 - 4.9 mmol/L [facility] Chloride 104 97 - 110 mmol/L [facility] CO2 29 22 - 32 mmol/L [facility] Anion gap 9 2 - 15 mmol/L [facility] BUN 9 6 - 25 mg/dL [facility] Creatinine 1.68(H) 0.60 - 1.10 mg/dL [facility] Glucose 105 70 - 199 mg/dL [facility] Comment: Interpretive Data Fasting glucose >/= [...] Calcium 9.6 8.5 - 10.3 mg/dL [facility] Blood 03/04/2023 8:34 PM CDT 03/04/2023 9:21 PM CDT Estella Ellis MD PhD LAB BLOOD ORDERABL ES Final Result [facility] Department [place] [address] * ECG 12 lead (03/04/2023 7:22 AM CDT) [facility] Ventricular Rate EKG/Min 126 BPM [facility] QRS-Interval (MSEC) 104 ms [facility] QT-Interval (MSEC) 336 ms [facility] QTc 486 ms [facility] R [place] 22 degrees [facility] T [place] 185 degrees [facility] Diagnosis Atrial fibrillation with rapid ventricular response ST & T wave abnormality, consider inferolateral ischemia Abnormal ECG When compared with ECG of 03-MAR-2023 13:08, (unconfirmed) Atrial fibrillation has replaced Sinus rhythm Vent. rate has increased BY ??67 BPM Confirmed by JAYSON ROMAN M.D ([id number]) on 03/05/2023 9:34:16 AM [facility] 03/04/2023 7:22 AM CDT 03/05/2023 9:34 AM CDT us Franca Echevarria DO ECG ORDERABLES Fin al Result Performing Organization Address City/[facility]/ZIP Co de Phone Number [facility] * (ABNORMAL) Vancomycin level trough (03/03/2023 8:58 PM CDT) Pathologist [facility] Vancomycin trough 21.4(H) 10.0 - 20.0 mcg/mL [facility] Blood 03/03/2023 8:58 PM CDT 03/03/2023 9:27 PM CDT Benjamín Mancuso MD LAB BLOOD ORDERABLES Fi nal Result Performing Organization Address [facility] Co de Phone Number [facility] [place] [address] * (ABNORMAL) eGFR (03/03/2023 8:58 PM CDT) Pathologist [facility] eGFR 39(L) 90 - 130 mL/min/1. 73 m2 [facility] Comment: Interpretive Data Reference Interval Normal [...] PhD LAB BLOOD ORDERABL ES Final Result [facility] Department [place] [address] * Magnesium (03/03/2023 8:58 PM CDT) Pathologist [facility] Magnesium 1.9 1.4 - 2.5 mg/dL [facility] Blood 03/03/2023 8:58 PM CDT 03/03/2023 9:27 PM CDT us Estella Ellis MD PhD LAB BLOOD ORDERABL ES Final Result [facility] Department [place] [address] * (ABNORMAL) Basic metabolic panel (03/03/2023 8:58 PM CDT) Sodium 140 135 - 145 mmol/L [facility] Potassium, pl 4.3 3.3 - 4.9 mmol/L [facility] Chloride 106 97 - 110 mmol/L [facility] CO2 29 22 - 32 mmol/L [facility] Anion gap 5 2 - 15 mmol/L [facility] BUN 9 6 - 25 mg/dL [facility] Creatinine 1.41(H) 0.60 - 1.10 mg/dL [facility] Glucose 112 70 - 199 mg/dL [facility] Comment: Interpretive Data Fasting glucose >/= [...] Calcium 9.6 8.5 - 10.3 mg/dL [facility] Blood 03/03/2023 8:58 PM CDT 03/03/2023 9:27 PM CDT Estella Ellis MD PhD LAB BLOOD ORDERABL ES Final Result [facility] [place] [address] * ECG 12 lead (03/03/2023 1:08 PM CDT) Ventricular Rate EKG/Min 59 BPM [facility] Atrial Rate 59 BPM [facility] [place]-Interval (MSEC) 180 ms [facility] QRS-Interval (MSEC) 104 ms [facility] QT-Interval (MSEC) 470 ms [facility] QTc 465 ms [facility] P [place] 5 degrees [facility] R [place] 17 degrees [facility] T [place] 154 degrees [facility] Diagnosis Baseline artifact Sinus bradycardia Left ventricular hypertrophy with repolarization abnormality ( [place] product ) Abnormal ECG When compared with ECG of 03-MAR-2023 09:34, (unconfirmed) No significant change was found Confirmed by SERVANDO GARCIA M.D ([id number]) on 03/04/2023 8:45:25 PM [facility] 03/03/2023 1:08 PM CDT 03/04/2023 8:45 PM CDT us Franca Dona Echevarria DO ECG ORDERABLES Fin al Result Performing Organization Address [facility] Co de Phone Number [facility] * ECG 12 lead (03/03/2023 9:34 AM CDT) Ventricular Rate EKG/Min 60 BPM [facility] Atrial Rate 60 BPM [facility] [place]-Interval (MSEC) 178 ms [facility] QRS-Interval (MSEC) 106 ms [facility] QT-Interval (MSEC) 448 ms [facility] QTc 448 ms [facility] P [place] 29 degrees [facility] R [place] 7 degrees [facility] T [place] 154 degrees [facility] Diagnosis Normal sinus rhythm Nonspecific ST and T wave abnormality Abnormal ECG When compared with ECG of 01-MAR-2023 10:16, (unconfirmed) ST-T changes have improved Confirmed by JAYSON ROMAN M.D ([id number]) on 03/04/2023 9:19:22 AM [facility] 03/03/2023 9:34 AM CDT 03/04/2023 9:19 AM CDT us Jose Roberto Santos MD PhD ECG ORDERABLES Fi nal Result Performing Organization Address [facility] de Phone Number [facility] * (ABNORMAL) eGFR (03/03/2023 9:30 AM CDT) eGFR 46(L) 90 - 130 mL/min/1. 73 m2 [facility] Comment: Interpretive Data Reference Interval Normal [...] MD LAB BLOOD ORDERABLES Fi nal Result [facility] [place] [address] * (ABNORMAL) Basic metabolic panel (03/03/2023 9:30 AM CDT) Pathologist [facility] Sodium 140 135 - 145 mmol/L [facility] Potassium, pl 3.7 3.3 - 4.9 mmol/L [facility] Chloride 104 97 - 110 mmol/L [facility] CO2 30 22 - 32 mmol/L [facility] Anion gap 6 2 - 15 mmol/L [facility] BUN 7 6 - 25 mg/dL [facility] Creatinine 1.22(H) 0.60 - 1.10 mg/dL [facility] Glucose 102 70 - 199 mg/dL [facility] Comment: Interpretive Data Fasting glucose >/= [...] Calcium 9.2 8.5 - 10.3 mg/dL [facility] Blood 03/03/2023 9:30 AM CDT 03/03/2023 10:13 AM CDT us Benjamín Mancuso MD LAB BLOOD ORDERABLES Fi nal Result [facility] [place] [address] * (ABNORMAL) eGFR (03/02/2023 9:18 PM CDT) eGFR 43(L) 90 - 130 mL/min/1. 73 m2 [facility] Comment: Interpretive Data Reference Interval Normal [...] ORDERABL ES Final Result Performing Organization Address City/[facility]/ZIP Co de Phone Number [facility] Department [place] [address] * Magnesium (03/02/2023 9:18 PM CDT) Pathologist [facility] Magnesium 2.2 1.4 - 2.5 mg/dL [facility] Blood 03/02/2023 9:18 PM CDT 03/02/2023 10:07 PM CDT Estella Ellis MD PhD LAB BLOOD ORDERABL ES Final Result Performing Organization Address City/[facility] Co de Phone Number [facility] [place] [address] * (ABNORMAL) Basic metabolic panel (03/02/2023 9:18 PM CDT) Sodium 143 135 - 145 mmol/L [facility] Potassium, pl 3.7 3.3 - 4.9 mmol/L [facility] Chloride 106 97 - 110 mmol/L [facility] CO2 29 22 - 32 mmol/L [facility] Anion gap 8 2 - 15 mmol/L [facility] BUN 6 6 - 25 mg/dL [facility] Creatinine 1.28(H) 0.60 - 1.10 mg/dL [facility] Glucose 113 70 - 199 mg/dL [facility] Comment: Interpretive Data Fasting glucose >/= [...] Calcium 9.6 8.5 - 10.3 mg/dL [facility] Blood 03/02/2023 9:18 PM CDT 03/02/2023 10:07 PM CDT us Estella Ellis MD PhD LAB BLOOD ORDERABL ES Final Result [facility] [place] [address] * (ABNORMAL) eGFR (03/01/2023 8:14 PM CDT) eGFR 53(L) 90 - 130 mL/min/1. 73 m2 [facility] Comment: Interpretive Data Reference Interval Normal [...] PhD LAB BLOOD ORDERABL ES Final Result [facility] [place] [address] * Differential, auto (03/01/2023 8:14 PM CDT) Neutrophil abs 2.0 1.7 - 6.5 K/cumm [facility] Imm gran abs 0.0 0.0 - 0.1 K/cumm [facility] Lymphocyte abs 1.4 0.8 - 3.3 K/cumm [facility] Monocyte abs 0.6 0.2 - 0.8 K/cumm [facility] Eosinophil abs 0.2 0.0 - 0.5 K/cumm [facility] Basophil abs 0.1 0.0 - 0.1 K/cumm [facility] Neutrophil pct 46.9 % [facility] Comment: Interpretive Data Percent cell count reference ranges are not reported, since discordance with absolute values may lead to misinterpretation of CBC data. Current Interpretive Data was last revised on 2017. Imm gran pct 0.5 % [facility] Comment: Interpretive Data Percent cell count reference ranges are not reported, since discordance with absolute values may lead to misinterpretation of CBC data. Current Interpretive Data was last revised on 2017. Lymphocyte pct 31.5 % [facility] Comment: Interpretive Data Percent cell count reference ranges are not reported, since discordance with absolute values may lead to misinterpretation of CBC data. Current Interpretive Data was last revised on 2017. Monocyte pct 13.9 % [facility] Comment: Interpretive Data Percent cell count reference ranges are not reported, since discordance with absolute values may lead to misinterpretation of CBC data. Current Interpretive Data was last revised on 2017. Eosinophil pct 5.3 % [facility] Comment: Interpretive Data Percent cell count reference ranges are not reported, since discordance with absolute values may lead to misinterpretation of CBC data. Current Interpretive Data was last revised on 2017. Basophil pct 1.9 % [facility] Comment: Interpretive Data Percent cell count reference ranges are not reported, since discordance with absolute values may lead to misinterpretation of CBC data. Current Interpretive Data was last revised on 2017. Blood 03/01/2023 8:14 PM CDT 03/01/2023 9:22 PM CDT Estella Ellis MD PhD LAB BLOOD ORDERABL ES Final Result Performing Organization Address [facility] Co de Phone Number [facility] Department [place] [place] [address] * Magnesium (03/01/2023 8:14 PM CDT) Pathologist [facility] Magnesium 1.8 1.4 - 2.5 mg/dL [facility] Blood 03/01/2023 8:14 PM CDT 03/01/2023 9:21 PM CDT Result [facility] Estella Ellis MD PhD LAB BLOOD ORDERABL ES Final Result Performing Organization Address [facility] de Phone Number [facility] [place] [address] * (ABNORMAL) CBC with auto differential (03/01/2023 8:14 PM CDT) Pathologist [facility] WBC 4.3 3.8 - 9.9 K/cumm [facility] Hgb 7.7(L) 11.9 - 15.5 g/dL [facility] Hct 24.4(L) 35.6 - 45.5 % [facility] Plt 251 150 - 400 K/cumm [facility] MPV 11.9 9.1 - 12.3 fL [facility] RBC 2.58(L) 3.90 - 5.20 M/cumm [facility] MCV 94.6 81.3 - 96.4 fL [facility] MCH 29.8 27.1 - 33.3 pg [facility] MCHC 31.6(L) 32.3 - 35.7 g/dL [facility] RDW CV 14.9 11.1 - 14.9 % [facility] RDW SD 49.6(H) 35.7 - 48.1 fL [facility] NRBC abs 0.00 0.00 - 0.01 K/cumm [facility] Blood 03/01/2023 8:14 PM CDT 03/01/2023 9:22 PM CDT us Estella Ellis MD PhD LAB BLOOD ORDERABL ES Final Result [facility] Department [place] [address] * (ABNORMAL) Basic metabolic panel (03/01/2023 8:14 PM CDT) Sodium 142 135 - 145 mmol/L [facility] Potassium, pl 3.9 3.3 - 4.9 mmol/L [facility] Chloride 107 97 - 110 mmol/L [facility] CO2 28 22 - 32 mmol/L [facility] Anion gap 7 2 - 15 mmol/L [facility] BUN 5(L) 6 - 25 mg/dL [facility] Creatinine 1.09 0.60 - 1.10 mg/dL [facility] Glucose 106 70 - 199 mg/dL [facility] Comment: Interpretive Data Fasting glucose >/= [...] Calcium 9.6 8.5 - 10.3 mg/dL [facility] Blood 03/01/2023 8:14 PM CDT 03/01/2023 9:21 PM CDT us Estella Ellis MD PhD LAB BLOOD ORDERABL ES Final Result Performing Organization Address City/[facility] Co de Phone Number [facility] Department [place] [address] * ECG 12 lead (03/01/2023 10:16 AM CDT) Ventricular Rate EKG/Min 54 BPM [facility] Atrial Rate 54 BPM [facility] MN-Interval (MSEC) 192 ms [facility] QRS-Interval (MSEC) 106 ms [facility] QT-Interval (MSEC) 490 ms [facility] QTc 464 ms [facility] P [place] 19 degrees [facility] R [place] 31 degrees [facility] T [place] 157 degrees [facility] Diagnosis Sinus bradycardia ST & T wave abnormality, consider anterolateral ischemia /infarct Abnormal ECG When compared with ECG of 26-FEB-2023 06:35, ST-T wave abnormalities now worse Confirmed by SERVANDO GARCIA M.D ([id number]) on 03/03/2023 5:40:09 PM [facility] 03/01/2023 10:1 6 AM CDT 03/03/2023 5:40 PM CDT us Jose Roberto Santos MD PhD ECG ORDERABLES Fi nal Result Performing Organization Address [facility]/ZIP Co de Phone Number [facility] * (ABNORMAL) eGFR (02/28/2023 8:33 PM CDT) Pathologist [facility] eGFR 60(L) 90 - 130 mL/min/1. 73 m2 [facility] Comment: Interpretive Data Reference Interval Normal [...] PhD LAB BLOOD ORDERABL ES Final Result [facility] Department of Laboratories [place], [place] [id number] * Differential, auto (02/28/2023 8:33 PM CDT) Neutrophil abs 3.3 1.7 - 6.5 K/cumm [facility] Imm gran abs 0.0 0.0 - 0.1 K/cumm [facility] Lymphocyte abs 1.5 0.8 - 3.3 K/cumm [facility] Monocyte abs 0.8 0.2 - 0.8 K/cumm [facility] Eosinophil abs 0.2 0.0 - 0.5 K/cumm [facility] Basophil abs 0.1 0.0 - 0.1 K/cumm [facility] Neutrophil pct 57.2 % [facility] Comment: Interpretive Data Percent cell count reference ranges are not reported, since discordance with absolute values may lead to misinterpretation of CBC data. Current Interpretive Data was last revised on 2017. Imm gran pct 0.5 % [facility] Comment: Interpretive Data Percent cell count reference ranges are not reported, since discordance with absolute values may lead to misinterpretation of CBC data. Current Interpretive Data was last revised on 2017. Lymphocyte pct 25.3 % [facility] Comment: Interpretive Data Percent cell count reference ranges are not reported, since discordance with absolute values may lead to misinterpretation of CBC data. Current Interpretive Data was last revised on 2017. Monocyte pct 12.9 % [facility] Comment: Interpretive Data Percent cell count reference ranges are not reported, since discordance with absolute values may lead to misinterpretation of CBC data. Current Interpretive Data was last revised on 2017. Eosinophil pct 3.1 % [facility] Comment: Interpretive Data Percent cell count reference ranges are not reported, since discordance with absolute values may lead to misinterpretation of CBC data. Current Interpretive Data was last revised on 2017. Basophil pct 1.0 % [facility] Comment: Interpretive Data Percent cell count reference ranges are not reported, since discordance with absolute values may lead to misinterpretation of CBC data. Current Interpretive Data was last revised on 2017. Blood 02/28/2023 8:33 PM CDT 02/28/2023 9:27 PM CDT us Estella Ellis MD PhD LAB BLOOD ORDERABL ES Final Result [facility] Department of Laboratories [place], [place] [id number] * Vancomycin level trough 30min before pm vanc please. Thanks! (02/28/2023 8:33 PM CDT) Vancomycin trough 19.5 10.0 - 20.0 mcg/mL [facility] Blood 02/28/2023 8:33 PM CDT 02/28/2023 9:27 PM CDT Narrative [facility] - 02/28/2023 9:54 PM CDT 30min before pm vanc please. Thanks! us Ritika Serrano MD LAB BLOOD ORDERABLES Final Resul t Performing Organization Address City/[facility]/ZIP Co de Phone Number [facility] Department [place] [address] * Magnesium (02/28/2023 8:33 PM CDT) [facility] Magnesium 1.9 1.4 - 2.5 mg/dL [facility] Blood 02/28/2023 8:33 PM CDT 02/28/2023 9:27 PM CDT us Estella Ellis MD PhD LAB BLOOD ORDERABL ES Final Result Performing Organization Address [facility] de Phone Number [facility] [place] [address] * (ABNORMAL) CBC with auto differential (02/28/2023 8:33 PM CDT) [facility] WBC 5.8 3.8 - 9.9 K/cumm [facility] Hgb 7.6(L) 11.9 - 15.5 g/dL [facility] Hct 24.4(L) 35.6 - 45.5 % [facility] Plt 258 150 - 400 K/cumm [facility] MPV 11.9 9.1 - 12.3 fL [facility] RBC 2.59(L) 3.90 - 5.20 M/cumm [facility] MCV 94.2 81.3 - 96.4 fL [facility] MCH 29.3 27.1 - 33.3 pg [facility] MCHC 31.1(L) 32.3 - 35.7 g/dL [facility] RDW CV 14.6 11.1 - 14.9 % [facility] RDW SD 48.0 35.7 - 48.1 fL [facility] NRBC abs 0.00 0.00 - 0.01 K/cumm [facility] Blood 02/28/2023 8:33 PM CDT 02/28/2023 9:27 PM CDT Estella Ellis MD PhD LAB BLOOD ORDERABL ES Final Result [facility] Department [place] [address] * Basic metabolic panel (02/28/2023 8:33 PM CDT) Pathologist [facility] Sodium 141 135 - 145 mmol/L [facility] Potassium, pl 3.9 3.3 - 4.9 mmol/L [facility] Chloride 108 97 - 110 mmol/L [facility] CO2 28 22 - 32 mmol/L [facility] Anion gap 5 2 - 15 mmol/L [facility] BUN 6 6 - 25 mg/dL [facility] Creatinine 0.98 0.60 - 1.10 mg/dL [facility] Glucose 125 70 - 199 mg/dL [facility] Comment: Interpretive Data Fasting glucose >/= [...] Calcium 9.6 8.5 - 10.3 mg/dL [facility] Blood 02/28/2023 8:33 PM CDT 02/28/2023 9:27 PM CDT Estella Ellis MD PhD LAB BLOOD ORDERABL ES Final Result Performing Organization Address City/[facility]/ZIP Co de Phone Number [facility] Department [place] [address] * (ABNORMAL) eGFR (02/27/2023 8:50 PM CDT) eGFR 54(L) 90 - 130 mL/min/1. 73 m2 [facility] Comment: Interpretive Data Reference Interval Normal [...] LAB BLOOD ORDERABL ES Final Result [facility] Department [place] [address] * Differential, auto (02/27/2023 8:50 PM CDT) Neutrophil abs 5.3 1.7 - 6.5 K/cumm [facility] Imm gran abs 0.1 0.0 - 0.1 K/cumm [facility] Lymphocyte abs 1.4 0.8 - 3.3 K/cumm [facility] Monocyte abs 0.8 0.2 - 0.8 K/cumm [facility] Eosinophil abs 0.2 0.0 - 0.5 K/cumm [facility] Basophil abs 0.1 0.0 - 0.1 K/cumm [facility] Neutrophil pct 67.9 % [facility] Comment: Interpretive Data Percent cell count reference ranges are not reported, since discordance with absolute values may lead to misinterpretation of CBC data. Current Interpretive Data was last revised on 2017. Imm gran pct 0.6 % [facility] Comment: Interpretive Data Percent cell count reference ranges are not reported, since discordance with absolute values may lead to misinterpretation of CBC data. Current Interpretive Data was last revised on 2017. Lymphocyte pct 18.0 % [facility] Comment: Interpretive Data Percent cell count reference ranges are not reported, since discordance with absolute values may lead to misinterpretation of CBC data. Current Interpretive Data was last revised on 2017. Monocyte pct 10.3 % [facility] Comment: Interpretive Data Percent cell count reference ranges are not reported, since discordance with absolute values may lead to misinterpretation of CBC data. Current Interpretive Data was last revised on 2017. Eosinophil pct 2.4 % [facility] Comment: Interpretive Data Percent cell count reference ranges are not reported, since discordance with absolute values may lead to misinterpretation of CBC data. Current Interpretive Data was last revised on 2017. Basophil pct 0.8 % [facility] Comment: Interpretive Data Percent cell count reference ranges are not reported, since discordance with absolute values may lead to misinterpretation of CBC data. Current Interpretive Data was last revised on 2017. Blood 02/27/2023 8:50 PM CDT 02/27/2023 9:37 PM CDT Estella Ellis MD PhD LAB BLOOD ORDERABL ES Final Result [facility] [place] [address] * Magnesium (02/27/2023 8:50 PM CDT) [facility] Magnesium 1.9 1.4 - 2.5 mg/dL [facility] Blood 02/27/2023 8:50 PM CDT 02/27/2023 9:36 PM CDT Estella Ellis MD PhD LAB BLOOD ORDERABL ES Final Result Performing Organization Address [facility] Co de Phone Number [facility] Department [place] [address] * (ABNORMAL) CBC with auto differential (02/27/2023 8:50 PM CDT) [facility] WBC 7.8 3.8 - 9.9 K/cumm [facility] Hgb 7.5(L) 11.9 - 15.5 g/dL [facility] Hct 24.4(L) 35.6 - 45.5 % [facility] Plt 269 150 - 400 K/cumm [facility] MPV 12.0 9.1 - 12.3 fL [facility] RBC 2.55(L) 3.90 - 5.20 M/cumm [facility] MCV 95.7 81.3 - 96.4 fL [facility] MCH 29.4 27.1 - 33.3 pg [facility] MCHC 30.7(L) 32.3 - 35.7 g/dL [facility] RDW CV 14.3 11.1 - 14.9 % [facility] RDW SD 47.4 35.7 - 48.1 fL [facility] NRBC abs 0.00 0.00 - 0.01 K/cumm [facility] Blood 02/27/2023 8:50 PM CDT 02/27/2023 9:37 PM CDT Estella Ellis MD PhD LAB BLOOD ORDERABL ES Final Result Performing Organization Address City/[facility]/ZIP Co de Phone Number [facility] Department [place] [address] * Basic metabolic panel (02/27/2023 8:50 PM CDT) Pathologist [facility] Sodium 141 135 - 145 mmol/L [facility] Potassium, pl 4.0 3.3 - 4.9 mmol/L [facility] Chloride 107 97 - 110 mmol/L [facility] CO2 28 22 - 32 mmol/L [facility] Anion gap 6 2 - 15 mmol/L [facility] BUN 7 6 - 25 mg/dL [facility] Creatinine 1.06 0.60 - 1.10 mg/dL [facility] Glucose 109 70 - 199 mg/dL [facility] Comment: Interpretive Data Fasting glucose >/= [...] Calcium 9.3 8.5 - 10.3 mg/dL [facility] Blood 02/27/2023 8:50 PM CDT 02/27/2023 9:36 PM CDT Estella Ellis MD PhD LAB BLOOD ORDERABL ES Final Result Performing Organization Address [facility] Co de Phone Number [facility] Department [place] [address] * (ABNORMAL) Digoxin level (02/27/2023 5:03 AM CDT) Pathologist [facility] Digoxin 0.9(H) 0.5 - 0.8 ng/mL [facility] Comment: Interpretive data Digoxin concentrations as high as 2 ng/mL may be useful in treating atrial fibrillation. Current interpretive data was last reviewed on 05/18/2013. Blood 02/27/2023 5:03 AM CDT 02/27/2023 5:46 AM CDT Estella Ellis MD PhD LAB BLOOD ORDERABL ES Final Result [facility] Department [place] [address] * (ABNORMAL) eGFR (02/26/2023 9:09 PM CDT) Pathologist [facility] eGFR 54(L) 90 - 130 mL/min/1. 73 m2 [facility] Comment: Interpretive Data Reference Interval Normal [...] PhD LAB BLOOD ORDERABL ES Final Result [facility] Department [place] [address] * Differential, auto (02/26/2023 9:09 PM CDT) Neutrophil abs 4.4 1.7 - 6.5 K/cumm [facility] Imm gran abs 0.1 0.0 - 0.1 K/cumm [facility] Lymphocyte abs 1.5 0.8 - 3.3 K/cumm [facility] Monocyte abs 0.7 0.2 - 0.8 K/cumm [facility] Eosinophil abs 0.2 0.0 - 0.5 K/cumm [facility] Basophil abs 0.1 0.0 - 0.1 K/cumm [facility] Neutrophil pct 63.9 % [facility] Comment: Interpretive Data Percent cell count reference ranges are not reported, since discordance with absolute values may lead to misinterpretation of CBC data. Current Interpretive Data was last revised on 2017. Imm gran pct 0.7 % [facility] Comment: Interpretive Data Percent cell count reference ranges are not reported, since discordance with absolute values may lead to misinterpretation of CBC data. Current Interpretive Data was last revised on 2017. Lymphocyte pct 21.5 % [facility] Comment: Interpretive Data Percent cell count reference ranges are not reported, since discordance with absolute values may lead to misinterpretation of CBC data. Current Interpretive Data was last revised on 2017. Monocyte pct 10.2 % [facility] Comment: Interpretive Data Percent cell count reference ranges are not reported, since discordance with absolute values may lead to misinterpretation of CBC data. Current Interpretive Data was last revised on 2017. Eosinophil pct 2.7 % [facility] Comment: Interpretive Data Percent cell count reference ranges are not reported, since discordance with absolute values may lead to misinterpretation of CBC data. Current Interpretive Data was last revised on 2017. Basophil pct 1.0 % [facility] Comment: Interpretive Data Percent cell count reference ranges are not reported, since discordance with absolute values may lead to misinterpretation of CBC data. Current Interpretive Data was last revised on 2017. Blood 02/26/2023 9:09 PM CDT 02/26/2023 9:48 PM CDT Estella Ellis MD PhD LAB BLOOD ORDERABL ES Final Result Performing Organization Address City/[facility]/ZIP Co de Phone Number [facility] Department [place] [address] * Magnesium (02/26/2023 9:09 PM CDT) [facility] Magnesium 1.9 1.4 - 2.5 mg/dL [facility] Blood 02/26/2023 9:09 PM CDT 02/26/2023 9:48 PM CDT Estella Ellis MD PhD LAB BLOOD ORDERABL ES Final Result Performing Organization Address City/[facility]/ZIP Co de Phone Number [facility] [place] [address] * (ABNORMAL) CBC with auto differential (02/26/2023 9:09 PM CDT) Pathologist [facility] WBC 6.9 3.8 - 9.9 K/cumm [facility] Hgb 7.6(L) 11.9 - 15.5 g/dL [facility] Hct 24.3(L) 35.6 - 45.5 % [facility] Plt 268 150 - 400 K/cumm [facility] MPV 11.6 9.1 - 12.3 fL [facility] RBC 2.62(L) 3.90 - 5.20 M/cumm [facility] MCV 92.7 81.3 - 96.4 fL [facility] MCH 29.0 27.1 - 33.3 pg [facility] MCHC 31.3(L) 32.3 - 35.7 g/dL [facility] RDW CV 14.3 11.1 - 14.9 % [facility] RDW SD 47.7 35.7 - 48.1 fL [facility] NRBC abs 0.00 0.00 - 0.01 K/cumm [facility] Blood 02/26/2023 9:09 PM CDT 02/26/2023 9:48 PM CDT Estella Ellis MD PhD LAB BLOOD ORDERABL ES Final Result [facility] Department [place] [address] * Basic metabolic panel (02/26/2023 9:09 PM CDT) Sodium 140 135 - 145 mmol/L [facility] Potassium, pl 3.9 3.3 - 4.9 mmol/L [facility] Chloride 106 97 - 110 mmol/L [facility] CO2 27 22 - 32 mmol/L [facility] Anion gap 7 2 - 15 mmol/L [facility] BUN 7 6 - 25 mg/dL [facility] Creatinine 1.07 0.60 - 1.10 mg/dL [facility] Glucose 101 70 - 199 mg/dL [facility] Comment: Interpretive Data Fasting glucose >/= [...] 2022. Calcium 9.4 8.5 - 10.3 mg/dL [facility] Blood 02/26/2023 9:09 PM CDT 02/26/2023 9:48 PM CDT us Estella Ellis MD PhD LAB BLOOD ORDERABL ES Final Result [facility] Department [place] [address] * XR Wrist Right 3 or More [...] Electronically signed by: Sameer Mccray MD Result [facility] Estella Ellis MD PhD IMG XR PROCEDURES Final Result * ECG 12 lead (02/26/2023 6:35 AM CDT) Pathologist [facility] Ventricular Rate EKG/Min 59 BPM [facility] Atrial Rate 59 BPM [facility] MN-Interval (MSEC) 188 ms [facility] QRS-Interval (MSEC) 102 ms [facility] QT-Interval (MSEC) 480 ms [facility] QTc 475 ms [facility] P [place] 19 degrees [facility] R [place] 33 degrees [facility] T [place] 183 degrees [facility] Diagnosis Sinus bradycardia ST & T wave abnormality, consider anterolateral ischemia Prolonged QT Abnormal ECG When compared with ECG of 17-FEB-2023 17:19, Sinus rhythm has replaced Atrial fibrillation Vent. rate has decreased BY ??84 BPM Confirmed by EDWAR RODRIGUEZ M.D ([id number]) on 02/26/2023 2:58:53 PM [facility] 02/26/2023 6:35 AM CDT 02/26/2023 2:58 PM CDT Result [facility] Estella Ellis MD PhD ECG ORDERABLES Fi nal Result [facility] * (ABNORMAL) Digoxin level (02/26/2023 5:30 AM CDT) Pathologist [facility] Digoxin 1.0(H) 0.5 - 0.8 ng/mL [facility] Comment: Interpretive data Digoxin concentrations as high as 2 ng/mL may be useful in treating atrial fibrillation. Current interpretive data was last reviewed on 05/18/2013. Blood 02/26/2023 5:30 AM CDT 02/26/2023 5:46 AM CDT Estella Ellis MD PhD LAB BLOOD ORDERABL ES Final Result [facility] Department [place] [address] * (ABNORMAL) eGFR (02/25/2023 10:53 PM CDT) eGFR 57(L) 90 - 130 mL/min/1. 73 m2 [facility] Comment: Interpretive Data Reference Interval Normal [...] ORDERABLE S Final Result Performing Organization Address City/[facility]/ZIP Co de Phone Number [facility] Department [place] [address] * Differential, auto (02/25/2023 10:53 PM CDT) Neutrophil abs 4.3 1.7 - 6.5 K/cumm [facility] Imm gran abs 0.1 0.0 - 0.1 K/cumm [facility] Lymphocyte abs 1.6 0.8 - 3.3 K/cumm [facility] Monocyte abs 0.7 0.2 - 0.8 K/cumm [facility] Eosinophil abs 0.2 0.0 - 0.5 K/cumm [facility] Basophil abs 0.1 0.0 - 0.1 K/cumm [facility] Neutrophil pct 62.3 % [facility] Comment: Interpretive Data Percent cell count reference ranges are not reported, since discordance with absolute values may lead to misinterpretation of CBC data. Current Interpretive Data was last revised on 2017. Imm gran pct 0.7 % [facility] Comment: Interpretive Data Percent cell count reference ranges are not reported, since discordance with absolute values may lead to misinterpretation of CBC data. Current Interpretive Data was last revised on 2017. Lymphocyte pct 22.7 % [facility] Comment: Interpretive Data Percent cell count reference ranges are not reported, since discordance with absolute values may lead to misinterpretation of CBC data. Current Interpretive Data was last revised on 2017. Monocyte pct 10.5 % [facility] Comment: Interpretive Data Percent cell count reference ranges are not reported, since discordance with absolute values may lead to misinterpretation of CBC data. Current Interpretive Data was last revised on 2017. Eosinophil pct 3.1 % [facility] Comment: Interpretive Data Percent cell count reference ranges are not reported, since discordance with absolute values may lead to misinterpretation of CBC data. Current Interpretive Data was last revised on 2017. Basophil pct 0.7 % [facility] Comment: Interpretive Data Percent cell count reference ranges are not reported, since discordance with absolute values may lead to misinterpretation of CBC data. Current Interpretive Data was last revised on 2017. Blood 02/25/2023 10:5 3 PM CDT 02/25/2023 11:26 PM CDT us Franca Echevarria DO LAB BLOOD ORDERABLE S Final Result [facility] Department [place] [address] * Magnesium (02/25/2023 10:53 PM CDT) Pathologist [facility] Magnesium 2.0 1.4 - 2.5 mg/dL [facility] Blood 02/25/2023 10:5 3 PM CDT 02/25/2023 11:26 PM CDT us Estella Ellis MD PhD LAB BLOOD ORDERABL ES Final Result Performing Organization Address [facility] Co de Phone Number [facility] [place] [address] * (ABNORMAL) CBC with auto differential (02/25/2023 10:53 PM CDT) [facility] WBC 6.9 3.8 - 9.9 K/cumm [facility] Hgb 7.1(L) 11.9 - 15.5 g/dL [facility] Hct 22.7(L) 35.6 - 45.5 % [facility] Plt 262 150 - 400 K/cumm [facility] MPV 11.7 9.1 - 12.3 fL [facility] RBC 2.44(L) 3.90 - 5.20 M/cumm [facility] MCV 93.0 81.3 - 96.4 fL [facility] MCH 29.1 27.1 - 33.3 pg [facility] MCHC 31.3(L) 32.3 - 35.7 g/dL [facility] RDW CV 14.3 11.1 - 14.9 % [facility] RDW SD 47.7 35.7 - 48.1 fL [facility] NRBC abs 0.00 0.00 - 0.01 K/cumm [facility] Blood 02/25/2023 10:5 3 PM CDT 02/25/2023 11:26 PM CDT Estella Ellis MD PhD LAB BLOOD ORDERABL ES Final Result Performing Organization Address [facility] Co de Phone Number [facility] Department [place] [address] * Basic metabolic panel (02/25/2023 10:53 PM CDT) [facility] Sodium 137 135 - 145 mmol/L [facility] Potassium, pl 4.0 3.3 - 4.9 mmol/L [facility] Chloride 102 97 - 110 mmol/L [facility] CO2 27 22 - 32 mmol/L [facility] Anion gap 8 2 - 15 mmol/L [facility] BUN 7 6 - 25 mg/dL [facility] Creatinine 1.02 0.60 - 1.10 mg/dL [facility] Glucose 79 70 - 199 mg/dL [facility] Comment: Interpretive Data Fasting glucose >/= [...] Calcium 9.2 8.5 - 10.3 mg/dL [facility] Blood 02/25/2023 10:5 3 PM CDT 02/25/2023 11:26 PM CDT Estella Ellis MD PhD LAB BLOOD ORDERABL ES Final Result Performing Organization Address [facility] Co de Phone Number [facility] Department [place] [address] * TRANSESOPHAGEAL ECHO (HOOD) W DOPPLER/CF W CARDIOVERSION (02/25/2023 1:43 PM CDT) Anatomical Region Laterality Modality Echocardiography 02/25/2023 12:3 0 PM CDT Narrative 02/25/2023 2:07 PM CDT Patient name: Tiera Lobato Date of test: 02/25/2023 Date of : 1945 (F) Hospital #: [id number] ?Location: [facility] Cardiac Diagnostic Lab Interpreted by: Jamari Dias MD [employer] Administrator: Shaquille Solano MD RN: Reason for Test: [...] 2=Hypo 3=Akinetic 4=Dyskin. 5=Aneurysm 0=Not visualized) Short [place]-Gastric:=1 S=1 I=1 P=1 L=1 A=1 Long [place]-Gastric:BP=1 BA=1 MP=1 MA=1 AP=1 AA=1 Chamber Dimensions: [...] MD performed the HOOD probe placement with Jamrai Dias MD present. Initial rhythm atrial fibrillation. [...] - 14:07:07 by Jamari Dias MD ?? Pin Inserter: Shaquille Solano MD By signing this report, the attending workday consultant certifies that he or she has personally supervised and interpreted the echocardiogram and has reviewed and or edited and agrees with the written comments contained within the report. Procedure Note Jamari Dias MD - 02/25/2023 Patient name: Tiera Lobato Date of test: 02/25/2023 Date of : 1945 (F) Hospital #: 0 Location: [facility] Cardiac Diagnostic Lab Interpreted by: Jamari Dias MD [employer] Administrator: Shaquille Solano MD RN: Reason for Test: [...] 2=Hypo 3=Akinetic 4=Dyskin. 5=Aneurysm 0=Not visualized) Short [place]-Gastric:=1 S=1 I=1 P=1 L=1 A=1 Long [place]-Gastric:BP=1 BA=1 MP=1 MA=1 AP=1 AA=1 Chamber Dimensions: [...] 02/25/2023 - 14:07:07 by Jamari Dias MD Pin Inserter: Shaquille Solano MD By signing this report, the attending workday consultant certifies that he or she has personally supervised and interpreted the echocardiogram and has reviewed and or edited and agrees with the written comments contained within the report. Estella Ellis MD PhD CV ECHO PROCEDURES Final Result * Digoxin level (02/25/2023 4:54 AM CDT) [facility] Digoxin 0.7 0.5 - 0.8 ng/mL [facility] Comment: Interpretive data Digoxin concentrations as high as 2 ng/mL may be useful in treating atrial fibrillation. Current interpretive data was last reviewed on 05/18/2013. Blood 02/25/2023 4:54 AM CDT 02/25/2023 5:34 AM CDT us Estella Ellis MD PhD LAB BLOOD ORDERABL ES Final Result Performing Organization Address City/State/[facility] Co de Phone Number [facility] Department [place] [address] * (ABNORMAL) eGFR (02/24/2023 8:50 PM CDT) Pathologist [facility] eGFR 54(L) 90 - 130 mL/min/1. 73 m2 [facility] Comment: Interpretive Data Reference Interval Normal [...] DO LAB BLOOD ORDERABLE S Final Result [facility] Department [place] [address] * Differential, auto (02/24/2023 8:50 PM CDT) Neutrophil abs 3.9 1.7 - 6.5 K/cumm [facility] Imm gran abs 0.1 0.0 - 0.1 K/cumm [facility] Lymphocyte abs 1.6 0.8 - 3.3 K/cumm [facility] Monocyte abs 0.6 0.2 - 0.8 K/cumm [facility] Eosinophil abs 0.3 0.0 - 0.5 K/cumm [facility] Basophil abs 0.1 0.0 - 0.1 K/cumm [facility] Neutrophil pct 60.2 % [facility] Comment: Interpretive Data Percent cell count reference ranges are not reported, since discordance with absolute values may lead to misinterpretation of CBC data. Current Interpretive Data was last revised on 2017. Imm gran pct 1.1 % [facility] Comment: Interpretive Data Percent cell count reference ranges are not reported, since discordance with absolute values may lead to misinterpretation of CBC data. Current Interpretive Data was last revised on 2017. Lymphocyte pct 24.2 % [facility] Comment: Interpretive Data Percent cell count reference ranges are not reported, since discordance with absolute values may lead to misinterpretation of CBC data. Current Interpretive Data was last revised on 2017. Monocyte pct 9.6 % [facility] Comment: Interpretive Data Percent cell count reference ranges are not reported, since discordance with absolute values may lead to misinterpretation of CBC data. Current Interpretive Data was last revised on 2017. Eosinophil pct 4.0 % [facility] Comment: Interpretive Data Percent cell count reference ranges are not reported, since discordance with absolute values may lead to misinterpretation of CBC data. Current Interpretive Data was last revised on 2017. Basophil pct 0.9 % [facility] Comment: Interpretive Data Percent cell count reference ranges are not reported, since discordance with absolute values may lead to misinterpretation of CBC data. Current Interpretive Data was last revised on 2017. Blood 02/24/2023 8:50 PM CDT 02/24/2023 9:33 PM CDT Franca Echevarria DO LAB BLOOD ORDERABLE S Final Result [facility] Department [place] [address] * Vancomycin level trough (02/24/2023 8:50 PM CDT) Vancomycin trough 18.2 10.0 - 20.0 mcg/mL [facility] Blood 02/24/2023 8:50 PM CDT 02/24/2023 9:25 PM CDT Estella Ellis MD PhD LAB BLOOD ORDERABL ES Final Result Performing Organization Address City/[facility]/ZIP Co de Phone Number [facility] Department [place] [address] * Magnesium (02/24/2023 8:50 PM CDT) [facility] Magnesium 1.9 1.4 - 2.5 mg/dL [facility] Blood 02/24/2023 8:50 PM CDT 02/24/2023 9:34 PM CDT Estella Ellis MD PhD LAB BLOOD ORDERABL ES Final Result Performing Organization Address [facility] Co de Phone Number [facility] [place] [address] * (ABNORMAL) CBC with auto differential (02/24/2023 8:50 PM CDT) [facility] WBC 6.5 3.8 - 9.9 K/cumm [facility] Hgb 7.4(L) 11.9 - 15.5 g/dL [facility] Hct 23.1(L) 35.6 - 45.5 % [facility] Plt 283 150 - 400 K/cumm [facility] MPV 11.6 9.1 - 12.3 fL [facility] RBC 2.53(L) 3.90 - 5.20 M/cumm [facility] MCV 91.3 81.3 - 96.4 fL [facility] MCH 29.2 27.1 - 33.3 pg [facility] MCHC 32.0(L) 32.3 - 35.7 g/dL [facility] RDW CV 14.1 11.1 - 14.9 % [facility] RDW SD 46.5 35.7 - 48.1 fL [facility] NRBC abs 0.00 0.00 - 0.01 K/cumm [facility] Blood 02/24/2023 8:50 PM CDT 02/24/2023 9:33 PM CDT Estella Elils MD PhD LAB BLOOD ORDERABL ES Final Result Performing Organization Address City/[facility]/ZIP Co de Phone Number [facility] Department [place] [address] * Basic metabolic panel (02/24/2023 8:50 PM CDT) [facility] Sodium 139 135 - 145 mmol/L [facility] Potassium, pl 4.1 3.3 - 4.9 mmol/L [facility] Chloride 105 97 - 110 mmol/L [facility] CO2 29 22 - 32 mmol/L [facility] Anion gap 5 2 - 15 mmol/L [facility] BUN 6 6 - 25 mg/dL [facility] Creatinine 1.07 0.60 - 1.10 mg/dL [facility] Glucose 93 70 - 199 mg/dL [facility] Comment: Interpretive Data Fasting glucose >/= [...] Calcium 9.6 8.5 - 10.3 mg/dL [facility] Blood 02/24/2023 8:50 PM CDT 02/24/2023 9:34 PM CDT Estella Ellis MD PhD LAB BLOOD ORDERABL ES Final Result Performing Organization Address [facility] Co de Phone Number [facility] Department [place] [address] * (ABNORMAL) aPTT (02/24/2023 10:41 AM CDT) aPTT 75(H) 28 - 38 sec [facility] Comment: Interpretive Data Therapeutic heparin range: 60.0 - 94.0 seconds. Based on correlation with therapeutic heparin activity range of 0.3-0.7 Units/mL. Current interpretive data was last revised on 2020. Blood 02/24/2023 10:4 1 AM CDT 02/24/2023 10:59 AM CDT Narrative [facility] - 02/24/2023 11:23 AM CDT Draw STAT PTT 6 hrs after initiation of heparin infusion, draw STAT PTT 6 hours after each dose change, and every 6 hours until 2 consecutive PTTs are within therapeutic range. Once two consecutive PTT's are therapeutic (60-94.9 seconds), then draw PTT every AM until heparin is discontinued. Estella Ellis MD PhD LAB BLOOD ORDERABL ES Final Result [facility] Department [place] [address] * (ABNORMAL) aPTT (02/24/2023 1:04 AM CDT) aPTT 42(H) 28 - 38 sec [facility] Comment: Interpretive Data Therapeutic heparin range: 60.0 - 94.0 seconds. Based on correlation with therapeutic heparin activity range of 0.3-0.7 Units/mL. Current interpretive data was last revised on 2020. Blood 02/24/2023 1:04 AM CDT 02/24/2023 1:37 AM CDT Narrative [facility] - 02/24/2023 2:05 AM CDT Draw STAT [...] ORDERABL ES Final Result Performing Organization Address [facility] de Phone Number [facility] [place] [address] * Digoxin level (02/24/2023 1:04 AM CDT) Digoxin 0.8 0.5 - 0.8 ng/mL [facility] Comment: Interpretive data Digoxin concentrations as high as 2 ng/mL may be useful in treating atrial fibrillation. Current interpretive data was last reviewed on 05/18/2013. Blood 02/24/2023 1:04 AM CDT 02/24/2023 1:33 AM CDT Estella Ellis MD PhD LAB BLOOD ORDERABL ES Final Result Performing Organization Address [facility] de Phone Number [facility] [place] [address] * (ABNORMAL) eGFR (02/23/2023 7:20 PM CDT) eGFR 64(L) 90 - 130 mL/min/1. 73 m2 [facility] Comment: Interpretive Data Reference Interval Normal [...] DO LAB BLOOD ORDERABLE S Final Result [facility] Department [place] [address] * Differential, auto (02/23/2023 7:20 PM CDT) Neutrophil abs 4.1 1.7 - 6.5 K/cumm [facility] Imm gran abs 0.1 0.0 - 0.1 K/cumm [facility] Lymphocyte abs 2.2 0.8 - 3.3 K/cumm [facility] Monocyte abs 0.8 0.2 - 0.8 K/cumm [facility] Eosinophil abs 0.4 0.0 - 0.5 K/cumm [facility] Basophil abs 0.0 0.0 - 0.1 K/cumm [facility] Neutrophil pct 53.6 % [facility] Comment: Interpretive Data Percent cell count reference ranges are not reported, since discordance with absolute values may lead to misinterpretation of CBC data. Current Interpretive Data was last revised on 2017. Imm gran pct 1.7 % [facility] Comment: Interpretive Data Percent cell count reference ranges are not reported, since discordance with absolute values may lead to misinterpretation of CBC data. Current Interpretive Data was last revised on 2017. Lymphocyte pct 28.4 % [facility] Comment: Interpretive Data Percent cell count reference ranges are not reported, since discordance with absolute values may lead to misinterpretation of CBC data. Current Interpretive Data was last revised on 2017. Monocyte pct 10.8 % [facility] Comment: Interpretive Data Percent cell count reference ranges are not reported, since discordance with absolute values may lead to misinterpretation of CBC data. Current Interpretive Data was last revised on 2017. Eosinophil pct 5.0 % [facility] Comment: Interpretive Data Percent cell count reference ranges are not reported, since discordance with absolute values may lead to misinterpretation of CBC data. Current Interpretive Data was last revised on 2017. Basophil pct 0.5 % [facility] Comment: Interpretive Data Percent cell count reference ranges are not reported, since discordance with absolute values may lead to misinterpretation of CBC data. Current Interpretive Data was last revised on 2017. Blood 02/23/2023 7:20 PM CDT 02/23/2023 8:01 PM CDT Franca Echevarria DO LAB BLOOD ORDERABLE S Final Result [facility] Department [place] [address] * Magnesium (02/23/2023 7:20 PM CDT) Pathologist [facility] Magnesium 2.0 1.4 - 2.5 mg/dL [facility] Blood 02/23/2023 7:20 PM CDT 02/23/2023 8:01 PM CDT Estella Ellis MD PhD LAB BLOOD ORDERABL ES Final Result [facility] Department [place] [address] * (ABNORMAL) CBC with auto differential (02/23/2023 7:20 PM CDT) WBC 7.6 3.8 - 9.9 K/cumm [facility] Hgb 8.0(L) 11.9 - 15.5 g/dL [facility] Hct 25.2(L) 35.6 - 45.5 % [facility] Plt 310 150 - 400 K/cumm [facility] MPV 12.3 9.1 - 12.3 fL [facility] RBC 2.76(L) 3.90 - 5.20 M/cumm [facility] MCV 91.3 81.3 - 96.4 fL [facility] MCH 29.0 27.1 - 33.3 pg [facility] MCHC 31.7(L) 32.3 - 35.7 g/dL [facility] RDW CV 14.3 11.1 - 14.9 % [facility] RDW SD 47.6 35.7 - 48.1 fL [facility] NRBC abs 0.03(H) 0.00 - 0.01 K/cumm [facility] Blood 02/23/2023 7:20 PM CDT 02/23/2023 8:01 PM CDT Estella Ellis MD PhD LAB BLOOD ORDERABL ES Final Result [facility] Department [place] [address] * Basic metabolic panel (02/23/2023 7:20 PM CDT) Sodium 141 135 - 145 mmol/L [facility] Potassium, pl 4.5 3.3 - 4.9 mmol/L [facility] Chloride 105 97 - 110 mmol/L [facility] CO2 28 22 - 32 mmol/L [facility] Anion gap 8 2 - 15 mmol/L [facility] BUN 6 6 - 25 mg/dL [facility] Creatinine 0.93 0.60 - 1.10 mg/dL [facility] Glucose 104 70 - 199 mg/dL [facility] Comment: Interpretive Data Fasting glucose >/= [...] 2022. Calcium 9.4 8.5 - 10.3 mg/dL [facility] Blood 02/23/2023 7:20 PM CDT 02/23/2023 8:01 PM CDT Estella Ellis MD PhD LAB BLOOD ORDERABL ES Final Result Performing Organization Address [facility] Co de Phone Number [facility] [place] [address] * (ABNORMAL) aPTT (02/23/2023 6:27 PM CDT) aPTT 70(H) 28 - 38 sec [facility] Comment: Interpretive Data Therapeutic heparin range: 60.0 - 94.0 seconds. Based on correlation with therapeutic heparin activity range of 0.3-0.7 Units/mL. Current interpretive data was last revised on 2020. Blood 02/23/2023 6:27 PM CDT 02/23/2023 6:39 PM CDT Narrative [facility] - 02/23/2023 7:02 PM CDT Draw STAT [...] ORDERABL ES Final Result Performing Organization Address City/[facility]/ZIP Co de Phone Number [facility] Department [place] [address] * (ABNORMAL) aPTT (02/23/2023 11:28 AM CDT) Pathologist [facility] aPTT 113(H) 28 - 38 sec [facility] Comment: No clot detected in sample Repeated and verified - [id number] - 02/23/23, 12:14 PM Interpretive Data Therapeutic heparin range: 60.0 - 94.0 seconds. Based on correlation with therapeutic heparin activity range of 0.3-0.7 Units/mL. Current interpretive data was last revised on 2020. Blood 02/23/2023 11:2 8 AM CDT 02/23/2023 11:36 AM CDT Narrative [facility] - 02/23/2023 12:15 PM CDT Draw STAT PTT 6 hrs after initiation of heparin infusion, draw STAT PTT 6 hours after each dose change, and every 6 hours until 2 consecutive PTTs are within therapeutic range. Once two consecutive PTT's are therapeutic (60-94.9 seconds), then draw PTT every AM until heparin is discontinued. Estella Ellis MD PhD LAB BLOOD ORDERABL ES Final Result [facility] Department [place] [address] * (ABNORMAL) Hepatic function panel, serum (02/23/2023 3:08 AM CDT) [facility] Bilirubin, total 0.3 0.1 - 1.2 mg/dL [facility] Bilirubin, direct <0.2 0.1 - 0.3 mg/dL [facility] Protein, sr 5.9(L) 6.2 - 8.2 g/dL [facility] Albumin 2.8(L) 3.5 - 5.0 g/dL [facility] Alk phos 98 40 - 130 Units/L [facility] ALT 17 7 - 45 Units/L [facility] AST 21 10 - 45 Units/L [facility] Blood 02/23/2023 3:08 AM CDT 02/23/2023 3:27 AM CDT Estella Ellis MD PhD LAB BLOOD ORDERABL ES Final Result Performing Organization Address City/[facility]/ZIP Co de Phone Number [facility] Department [place] [address] * Magnesium (02/23/2023 3:08 AM CDT) Pathologist [facility] Magnesium 2.4 1.4 - 2.5 mg/dL [facility] Blood 02/23/2023 3:08 AM CDT 02/23/2023 3:27 AM CDT Estella Ellis MD PhD LAB BLOOD ORDERABL ES Final Result Performing Organization Address [facility] Co de Phone Number [facility] Department [place] [address] * (ABNORMAL) Basic metabolic panel (02/23/2023 3:08 AM CDT) [facility] Sodium 139 135 - 145 mmol/L [facility] Potassium, pl 3.9 3.3 - 4.9 mmol/L [facility] Chloride 104 97 - 110 mmol/L [facility] CO2 27 22 - 32 mmol/L [facility] Anion gap 8 2 - 15 mmol/L [facility] BUN 5(L) 6 - 25 mg/dL [facility] Creatinine 0.95 0.60 - 1.10 mg/dL [facility] Glucose 148 70 - 199 mg/dL [facility] Comment: Interpretive Data Fasting glucose >/= [...] Calcium 9.2 8.5 - 10.3 mg/dL [facility] Blood 02/23/2023 3:08 AM CDT 02/23/2023 3:21 AM CDT us Estella Ellis MD PhD LAB BLOOD ORDERABL ES Final Result [facility] Department [place] [address] * (ABNORMAL) eGFR (02/23/2023 3:08 AM CDT) eGFR 62(L) 90 - 130 mL/min/1. 73 m2 [facility] Comment: Interpretive Data Reference Interval Normal [...] ORDERABL ES Final Result Performing Organization Address [facility] de Phone Number [facility] Department [place] [address] * (ABNORMAL) aPTT (02/23/2023 3:08 AM CDT) aPTT 114(H) 28 - 38 sec [facility] Comment: Interpretive Data Therapeutic heparin range: 60.0 - 94.0 seconds. Based on correlation with therapeutic heparin activity range of 0.3-0.7 Units/mL. Current interpretive data was last revised on 2020. Blood 02/23/2023 3:0 8 AM CDT 02/23/2023 3:28 AM CDT Narrative [facility] - 02/23/2023 4:09 AM CDT Draw STAT [...] ORDERABL ES Final Result Performing Organization Address [facility] de Phone Number [facility] Department [place] [address] * (ABNORMAL) Digoxin level (02/23/2023 3:08 AM CDT) Pathologist [facility] Digoxin 1.0(H) 0.5 - 0.8 ng/mL [facility] Comment: Interpretive data Digoxin concentrations as high as 2 ng/mL may be useful in treating atrial fibrillation. Current interpretive data was last reviewed on 05/18/2013. Blood 02/23/2023 3:08 AM CDT 02/23/2023 3:21 AM CDT Estella Ellis MD PhD LAB BLOOD ORDERABL ES Final Result Performing Organization Address [facility]/ZIP Co de Phone Number [facility] [place] [address] * (ABNORMAL) Ferritin (02/23/2023 3:08 AM CDT) Ferritin 299(H) 13 - 150 ng/mL [facility] Blood 02/23/2023 3:08 AM CDT 02/23/2023 3:21 AM CDT Franca [email or web address] DO LAB BLOOD ORDERABLE S Final Result Performing Organization Address City/State/[facility] [place] [address] * (ABNORMAL) Iron profile w/ IBC (02/23/2023 3:08 AM CDT) Iron 24(L) 35 - 145 mcg/dL [facility] TIBC 192(L) 250 - 400 mcg/dL [facility] Transferrin saturation 13(L) 20 - 50 % [facility] Blood 02/23/2023 3:08 AM CDT 02/23/2023 3:21 AM CDT Franca [email or web address] DO LAB BLOOD ORDERABLE S Final Result Performing Organization Address City/[facility] Co de Phone Number [facility] [place] [address] * (ABNORMAL) aPTT (02/22/2023 8:08 PM CDT) aPTT 97(H) 28 - 38 sec [facility] Comment: Interpretive Data Therapeutic heparin range: 60.0 [...] PhD LAB BLOOD ORDERABL ES Final Result [facility] Department [place] [address] * (ABNORMAL) eGFR (02/22/2023 8:06 PM CDT) eGFR 61(L) 90 - 130 mL/min/1. 73 m2 [facility] Comment: Interpretive Data Reference Interval Normal [...] DO LAB BLOOD ORDERABLE S Final Result [facility] Department [place] [address] * (ABNORMAL) Differential, auto (02/22/2023 8:06 PM CDT) Pathologist [facility] Neutrophil abs 3.3 1.7 - 6.5 K/cumm [facility] Imm gran abs 0.2(H) 0.0 - 0.1 K/cumm [facility] Lymphocyte abs 2.0 0.8 - 3.3 K/cumm [facility] Monocyte abs 0.7 0.2 - 0.8 K/cumm [facility] Eosinophil abs 0.4 0.0 - 0.5 K/cumm [facility] Basophil abs 0.0 0.0 - 0.1 K/cumm [facility] Neutrophil pct 49.9 % [facility] Comment: Interpretive Data Percent cell count reference ranges are not reported, since discordance with absolute values may lead to misinterpretation of CBC data. Current Interpretive Data was last revised on 2017. Imm gran pct 2.9 % [facility] Comment: Interpretive Data Percent cell count reference ranges are not reported, since discordance with absolute values may lead to misinterpretation of CBC data. Current Interpretive Data was last revised on 2017. Lymphocyte pct 30.3 % [facility] Comment: Interpretive Data Percent cell count reference ranges are not reported, since discordance with absolute values may lead to misinterpretation of CBC data. Current Interpretive Data was last revised on 2017. Monocyte pct 10.2 % [facility] Comment: Interpretive Data Percent cell count reference ranges are not reported, since discordance with absolute values may lead to misinterpretation of CBC data. Current Interpretive Data was last revised on 2017. Eosinophil pct 6.2 % [facility] Comment: Interpretive Data Percent cell count reference ranges are not reported, since discordance with absolute values may lead to misinterpretation of CBC data. Current Interpretive Data was last revised on 2017. Basophil pct 0.5 % [facility] Comment: Interpretive Data Percent cell count reference ranges are not reported, since discordance with absolute values may lead to misinterpretation of CBC data. Current Interpretive Data was last revised on 2017. Blood 02/22/2023 8:06 PM CDT 02/22/2023 8:24 PM CDT us Franca Echevarria DO LAB BLOOD ORDERABLE S Final Result Performing Organization Address City/[facility]/ZIP Co de Phone Number [facility] Department [place] [address] * Magnesium (02/22/2023 8:06 PM CDT) Pathologist [facility] Magnesium 1.8 1.4 - 2.5 mg/dL [facility] Blood 02/22/2023 8:06 PM CDT 02/22/2023 8:24 PM CDT Estella Ellis MD PhD LAB BLOOD ORDERABL ES Final Result Performing Organization Address City/[facility]/ZIP Co de Phone Number [facility] Department [place] [address] * (ABNORMAL) CBC with auto differential (02/22/2023 8:06 PM CDT) Pathologist [facility] WBC 6.6 3.8 - 9.9 K/cumm [facility] Hgb 7.7(L) 11.9 - 15.5 g/dL [facility] Hct 24.3(L) 35.6 - 45.5 % [facility] Plt 282 150 - 400 K/cumm [facility] MPV 11.8 9.1 - 12.3 fL [facility] RBC 2.67(L) 3.90 - 5.20 M/cumm [facility] MCV 91.0 81.3 - 96.4 fL [facility] MCH 28.8 27.1 - 33.3 pg [facility] MCHC 31.7(L) 32.3 - 35.7 g/dL [facility] RDW CV 14.2 11.1 - 14.9 % [facility] RDW SD 47.4 35.7 - 48.1 fL [facility] NRBC abs 0.00 0.00 - 0.01 K/cumm [facility] Blood 02/22/2023 8:06 PM CDT 02/22/2023 8:24 PM CDT us Estella Ellis MD PhD LAB BLOOD ORDERABL ES Final Result [facility] Department [place] [address] * (ABNORMAL) Basic metabolic panel (02/22/2023 8:06 PM CDT) Sodium 139 135 - 145 mmol/L [facility] Potassium, pl 3.7 3.3 - 4.9 mmol/L [facility] Chloride 103 97 - 110 mmol/L [facility] CO2 27 22 - 32 mmol/L [facility] Anion gap 9 2 - 15 mmol/L [facility] BUN 5(L) 6 - 25 mg/dL [facility] Creatinine 0.96 0.60 - 1.10 mg/dL [facility] Glucose 153 70 - 199 mg/dL [facility] Comment: Interpretive Data Fasting glucose >/= [...] 2022. Calcium 9.0 8.5 - 10.3 mg/dL [facility] Blood 02/22/2023 8:06 PM CDT 02/22/2023 8:24 PM CDT Estella Ellis MD PhD LAB BLOOD ORDERABL ES Final Result [facility] Department [place] [address] * Blood culture Blood (02/22/2023 1:54 PM CDT) Report Final Report: No growth [facility] Blood 02/22/2023 1:54 PM CDT 02/22/2023 2:14 [...] organism identification may be performed using the [employer] Gram-Positive Blood Culture Assay. This assay detects microbial DNA in positive blood culture broth via hybridization of target DNA to capture oligonucleotides on a microarray. This assay has been cleared by the [place] Food and Drug Administration and its performance characteristics have been verified by the [facility]. 5. ?For questions about this culture, contact the Microbiology Laboratory at [phone]. Interpretive data was last revised on 2019. Franca Sanchezsheripushpa Goldbergmino DO LAB MICROBIOLOGY - GENERAL ORDERABLES Final Result [facility] Department [place] [address] * Blood culture Blood (02/22/2023 1:39 PM [...] organism identification may be performed using the [employer] Gram-Positive Blood Culture Assay. This assay detects microbial DNA in positive blood culture broth via hybridization of target DNA to capture oligonucleotides on a microarray. This assay has been cleared by the [place] Food and Drug Administration and its performance characteristics have been verified by the [facility]. 5. ?For questions about this culture, contact the Microbiology Laboratory at [phone]. Interpretive data was last revised on 2019. Franca Krystinpushpa Selenaleopoldoo DO LAB MICROBIOLOGY - GENERAL ORDERABLES Final Result [facility] [place] [address] * POCT glucose (02/22/2023 11:40 AM CDT) Glucose, POC 115 70 - 199 mg/dL [facility] Blood 02/22/2023 11:4 0 AM CDT 02/22/2023 11:40 AM CDT Franca Dugolenski Giacomino DO LAB POCT ORDERABLES - DEVICE Final Result Performing Organization Address [facility] Co de Phone Number [facility] [place] [address] * POCT glucose (02/22/2023 7:35 AM CDT) Glucose, POC 126 70 - 199 mg/dL [facility] Blood 02/22/2023 7:35 AM CDT 02/22/2023 7:35 AM CDT Franca Dugolenski Giacomino DO LAB POCT ORDERABLES - DEVICE Final Result Performing Organization Address [facility] Co de Phone Number [facility] [place] [address] * (ABNORMAL) Digoxin level (02/22/2023 4:23 AM CDT) Digoxin 1.0(H) 0.5 - 0.8 ng/mL [facility] Comment: Interpretive data Digoxin concentrations as high as 2 ng/mL may be useful in treating atrial fibrillation. Current interpretive data was last reviewed on 05/18/2013. Blood 02/22/2023 4:23 AM CDT 02/22/2023 4:45 AM CDT us Estella Ellis MD PhD LAB BLOOD ORDERABL ES Final Result Performing Organization Address [facility] de Phone Number [facility] Department [place] [address] * (ABNORMAL) aPTT (02/21/2023 8:36 PM CDT) [facility] aPTT 83(H) 28 - 38 sec [facility] Comment: Interpretive Data Therapeutic heparin range: 60.0 - 94.0 seconds. Based on correlation with therapeutic heparin activity range of 0.3-0.7 Units/mL. Current interpretive data was last revised on 2020. Blood 02/21/2023 8:36 PM CDT 02/21/2023 9:04 PM CDT Narrative [facility] - 02/21/2023 9:26 PM CDT Draw STAT [...] ORDERABL ES Final Result Performing Organization Address [facility] de Phone Number [facility] Department [place] [address] * (ABNORMAL) eGFR (02/21/2023 8:35 PM CDT) [facility] eGFR 66(L) 90 - 130 mL/min/1. 73 m2 [facility] Comment: Interpretive Data Reference Interval Normal [...] DO LAB BLOOD ORDERABLE S Final Result [facility] Department [place] [address] * Differential, auto (02/21/2023 8:35 PM CDT) Neutrophil abs 4.3 1.7 - 6.5 K/cumm [facility] Imm gran abs 0.1 0.0 - 0.1 K/cumm [facility] Lymphocyte abs 1.6 0.8 - 3.3 K/cumm [facility] Monocyte abs 0.8 0.2 - 0.8 K/cumm [facility] Eosinophil abs 0.3 0.0 - 0.5 K/cumm [facility] Basophil abs 0.0 0.0 - 0.1 K/cumm [facility] Neutrophil pct 59.9 % [facility] Comment: Interpretive Data Percent cell count reference ranges are not reported, since discordance with absolute values may lead to misinterpretation of CBC data. Current Interpretive Data was last revised on 2017. Imm gran pct 1.8 % [facility] Comment: Interpretive Data Percent cell count reference ranges are not reported, since discordance with absolute values may lead to misinterpretation of CBC data. Current Interpretive Data was last revised on 2017. Lymphocyte pct 22.5 % [facility] Comment: Interpretive Data Percent cell count reference ranges are not reported, since discordance with absolute values may lead to misinterpretation of CBC data. Current Interpretive Data was last revised on 2017. Monocyte pct 11.4 % [facility] Comment: Interpretive Data Percent cell count reference ranges are not reported, since discordance with absolute values may lead to misinterpretation of CBC data. Current Interpretive Data was last revised on 2017. Eosinophil pct 4.0 % [facility] Comment: Interpretive Data Percent cell count reference ranges are not reported, since discordance with absolute values may lead to misinterpretation of CBC data. Current Interpretive Data was last revised on 2017. Basophil pct 0.4 % [facility] Comment: Interpretive Data Percent cell count reference ranges are not reported, since discordance with absolute values may lead to misinterpretation of CBC data. Current Interpretive Data was last revised on 2017. Blood 02/21/2023 8:35 PM CDT 02/21/2023 9:10 PM CDT us Franca Echevarria DO LAB BLOOD ORDERABLE S Final Result [facility] Department [place] [address] * Magnesium (02/21/2023 8:35 PM CDT) Magnesium 1.8 1.4 - 2.5 mg/dL [facility] Blood 02/21/2023 8:35 PM CDT 02/21/2023 9:10 PM CDT us Estella Ellis MD PhD LAB BLOOD ORDERABL ES Final Result Performing Organization Address City/[facility]/ZIP Co de Phone Number [facility] Department [place] [address] * (ABNORMAL) CBC with auto differential (02/21/2023 8:35 PM CDT) [facility] WBC 7.2 3.8 - 9.9 K/cumm [facility] Hgb 7.8(L) 11.9 - 15.5 g/dL [facility] Hct 24.2(L) 35.6 - 45.5 % [facility] Plt 287 150 - 400 K/cumm [facility] MPV 11.8 9.1 - 12.3 fL [facility] RBC 2.63(L) 3.90 - 5.20 M/cumm [facility] MCV 92.0 81.3 - 96.4 fL [facility] MCH 29.7 27.1 - 33.3 pg [facility] MCHC 32.2(L) 32.3 - 35.7 g/dL [facility] RDW CV 14.4 11.1 - 14.9 % [facility] RDW SD 48.3(H) 35.7 - 48.1 fL [facility] NRBC abs 0.00 0.00 - 0.01 K/cumm [facility] Blood 02/21/2023 8:35 PM CDT 02/21/2023 9:10 PM CDT us Estella Ellis MD PhD LAB BLOOD ORDERABL ES Final Result [facility] Department [place] [address] * Basic metabolic panel (02/21/2023 8:35 PM CDT) [facility] Sodium 141 135 - 145 mmol/L [facility] Potassium, pl 4.0 3.3 - 4.9 mmol/L [facility] Chloride 106 97 - 110 mmol/L [facility] CO2 27 22 - 32 mmol/L [facility] Anion gap 8 2 - 15 mmol/L [facility] BUN 7 6 - 25 mg/dL [facility] Creatinine 0.90 0.60 - 1.10 mg/dL [facility] Glucose 111 70 - 199 mg/dL [facility] Comment: Interpretive Data Fasting glucose >/= [...] 2022. Calcium 9.5 8.5 - 10.3 mg/dL [facility] Blood 02/21/2023 8:35 PM CDT 02/21/2023 9:10 PM CDT Estella Ellis MD PhD LAB BLOOD ORDERABL ES Final Result [facility] Department [place] [address] * POCT glucose (02/21/2023 4:11 PM CDT) [facility] Glucose, POC 108 70 - 199 mg/dL [facility] Blood 02/21/2023 4:11 PM CDT 02/21/2023 4:11 PM CDT us Franca Echevarria DO LAB POCT ORDERABLES - DEVICE Final Result [facility] Department [place] [address] * CT Entire Upper Extremity Left W [...] * POCT glucose (02/21/2023 7:36 AM CDT) [facility] Signature Glucose, POC 115 70 - 199 mg/dL [facility] Blood 02/21/2023 7:36 AM CDT 02/21/2023 7:36 AM CDT Francakrysten Rodriguezi Giacomino DO LAB POCT ORDERABLES - DEVICE Final Result [facility] [place] [address] * US Upper Extremity Left Limited (02/21/2023 [...] Electronically signed by: Santino Robledo M.D. us Franca Waltersacomintali DO IMG US PROCEDURES F inal Result * (ABNORMAL) aPTT (02/21/2023 6:14 AM CDT) aPTT 85(H) 28 - 38 sec [facility] Comment: Interpretive Data Therapeutic heparin range: 60.0 - 94.0 seconds. Based on correlation with therapeutic heparin activity range of 0.3-0.7 Units/mL. Current interpretive data was last revised on 2020. Blood 02/21/2023 6:14 AM CDT 02/21/2023 6:31 AM CDT Narrative [facility] - 02/21/2023 6:54 AM CDT Draw STAT [...] ORDERABL ES Final Result Performing Organization Address City/[facility] Co de Phone Number [facility] Department [place] [address] * (ABNORMAL) Digoxin level (02/21/2023 6:14 AM CDT) [facility] Digoxin 1.1(H) 0.5 - 0.8 ng/mL [facility] Comment: Interpretive data Digoxin concentrations as high as 2 ng/mL may be useful in treating atrial fibrillation. Current interpretive data was last reviewed on 05/18/2013. Blood 02/21/2023 6:14 AM CDT 02/21/2023 6:35 AM CDT Estella Ellis MD PhD LAB BLOOD ORDERABL ES Final Result Performing Organization Address City/[facility] Co de Phone Number [facility] [place] [address] * (ABNORMAL) aPTT (02/21/2023 12:05 AM CDT) aPTT 73(H) 28 - 38 sec [facility] Comment: Interpretive Data Therapeutic heparin range: 60.0 - 94.0 seconds. Based on correlation with therapeutic heparin activity range of 0.3-0.7 Units/mL. Current interpretive data was last revised on 2020. Blood 02/21/2023 12:0 5 AM CDT 02/21/2023 12:19 AM CDT Narrative [facility] - 02/21/2023 12:47 AM CDT Draw STAT PTT 6 hrs after initiation of heparin infusion, draw STAT PTT 6 hours after each dose change, and every 6 hours until 2 consecutive PTTs are within therapeutic range. Once two consecutive PTT's are therapeutic (60-94.9 seconds), then draw PTT every AM until heparin is discontinued. Estella Ellis MD PhD LAB BLOOD ORDERABL ES Final Result [facility] Department [place] [address] * (ABNORMAL) aPTT (02/20/2023 10:56 PM CDT) aPTT 125(H) 28 - 38 sec [facility] Comment: Repeated and verified - [id number] - 02/20/23, 11:41 PM Interpretive Data Therapeutic heparin range: 60.0 - 94.0 seconds. Based on correlation with therapeutic heparin activity range of 0.3-0.7 Units/mL. Current interpretive data was last revised on 2020. Blood 02/20/2023 10:5 6 PM CDT 02/20/2023 11:12 PM CDT Narrative [facility] - 02/20/2023 11:41 PM CDT Draw STAT [...] ORDERABL ES Final Result Performing Organization Address [facility] Co de Phone Number [facility] Department [place] [address] * (ABNORMAL) eGFR (02/20/2023 8:16 PM CDT) eGFR 68(L) 90 - 130 mL/min/1. 73 m2 [facility] Comment: Interpretive Data Reference Interval Normal [...] ORDERABLE S Final Result Performing Organization Address [facility] Co de Phone Number [facility] Department [place] [address] * (ABNORMAL) Differential, auto (02/20/2023 8:16 PM CDT) Neutrophil abs 4.7 1.7 - 6.5 K/cumm [facility] Imm gran abs 0.1 0.0 - 0.1 K/cumm [facility] Lymphocyte abs 1.7 0.8 - 3.3 K/cumm [facility] Monocyte abs 1.0(H) 0.2 - 0.8 K/cumm [facility] Eosinophil abs 0.2 0.0 - 0.5 K/cumm [facility] Basophil abs 0.0 0.0 - 0.1 K/cumm [facility] Neutrophil pct 60.6 % [facility] Comment: Interpretive Data Percent cell count reference ranges are not reported, since discordance with absolute values may lead to misinterpretation of CBC data. Current Interpretive Data was last revised on 2017. Imm gran pct 1.4 % [facility] Comment: Interpretive Data Percent cell count reference ranges are not reported, since discordance with absolute values may lead to misinterpretation of CBC data. Current Interpretive Data was last revised on 2017. Lymphocyte pct 22.3 % [facility] Comment: Interpretive Data Percent cell count reference ranges are not reported, since discordance with absolute values may lead to misinterpretation of CBC data. Current Interpretive Data was last revised on 2017. Monocyte pct 12.5 % [facility] Comment: Interpretive Data Percent cell count reference ranges are not reported, since discordance with absolute values may lead to misinterpretation of CBC data. Current Interpretive Data was last revised on 2017. Eosinophil pct 2.8 % [facility] Comment: Interpretive Data Percent cell count reference ranges are not reported, since discordance with absolute values may lead to misinterpretation of CBC data. Current Interpretive Data was last revised on 2017. Basophil pct 0.4 % [facility] Comment: Interpretive Data Percent cell count reference ranges are not reported, since discordance with absolute values may lead to misinterpretation of CBC data. Current Interpretive Data was last revised on 2017. Blood 02/20/2023 8:16 PM CDT 02/20/2023 8:56 PM CDT Franca Echevarria DO LAB BLOOD ORDERABLE S Final Result [facility] Department [place] [address] * Blood culture Blood (02/20/2023 8:16 PM CDT) Report Final Report: No growth [facility] Blood 02/20/2023 8:16 PM CDT 02/20/2023 8:50 [...] organism identification may be performed using the [employer] Gram-Positive Blood Culture Assay. This assay detects microbial DNA in positive blood culture broth via hybridization of target DNA to capture oligonucleotides on a microarray. This assay has been cleared by the [place] Food and Drug Administration and its performance characteristics have been verified by the [facility]. 5. ?For questions about this culture, contact the Microbiology Laboratory at [phone]. Interpretive data was last revised on 2019. Franca Echevarria DO LAB MICROBIOLOGY - GENERAL ORDERABLES Final Result [facility] Department [place] [address] * (ABNORMAL) Blood culture Blood (02/20/2023 8:16 PM CDT) Direct Specimen Exam Stain: Gram Positive Cocci in clusters Time to culture positivity (aerobic media): 14.9 hours Time to culture positivity (anaerobic media): 23.5 hours Notification of: Gram Positive Cocci in clusters called to and read back by: Aleksey Mendez MD [phone] on 02/21/2023 12:40:21 by: Briseyda Morris MLS [facility] Direct Specimen Exam Molecular Analysis: Staphylococcus epidermidis (methicillin resistant) detected by the [facility] Blood Culture Nucleic Acid Test. This test does not exclude the possibility of a mixed bacterial infection. Notification of: ??Staphylococcus epidermidis (methicillin resistant) called to and read back by: ??Dr.Richard Maria Alejandra GRAVES [phone] on 02/21/2023 16:06:02 by: Greta Lee MT [facility] Report Final Report: Staphylococcus epidermidis Single blood [...] antimicrobial susceptibility testing will be performed.(.) [facility] Organism STAPHYLOCOCCUS EPIDERMIDIS [facility] Organism STAPHYLOCOCCUS EPIDERMIDIS [facility] Organism STAPHYLOCOCCUS HOMINIS [facility] Blood 02/20/2023 8:16 PM CDT 02/20/2023 8:50 PM CDT Narrative [facility] - 02/24/2023 10:40 AM CDT Collection->Peripheral 1. [...] organism identification may be performed using the [employer] Gram-Positive Blood Culture Assay. This assay detects microbial DNA in positive blood culture broth via hybridization of target DNA to capture oligonucleotides on a microarray. This assay has been cleared by the [place] Food and Drug Administration and its performance characteristics have been verified by the [facility]. 5. ?For questions about this culture, contact the Microbiology Laboratory at [phone]. Interpretive data was last revised on 2019. Franca Echevarria DO LAB MICROBIOLOGY - GENERAL ORDERABLES Final Result [facility] Department [place] [address] * Magnesium (02/20/2023 8:16 PM CDT) [facility] [facility] Magnesium 2.1 1.4 - 2.5 mg/dL [facility] Blood 02/20/2023 8:16 PM CDT 02/20/2023 8:56 PM CDT us Estella Ellis MD PhD LAB BLOOD ORDERABL ES Final Result Performing Organization Address [facility] de Phone Number [facility] [place] [address] * (ABNORMAL) CBC with auto differential (02/20/2023 8:16 PM CDT) [facility] WBC 7.8 3.8 - 9.9 K/cumm [facility] Hgb 8.7(L) 11.9 - 15.5 g/dL [facility] Hct 26.6(L) 35.6 - 45.5 % [facility] Plt 282 150 - 400 K/cumm [facility] MPV 11.8 9.1 - 12.3 fL [facility] RBC 2.92(L) 3.90 - 5.20 M/cumm [facility] MCV 91.1 81.3 - 96.4 fL [facility] MCH 29.8 27.1 - 33.3 pg [facility] MCHC 32.7 32.3 - 35.7 g/dL [facility] RDW CV 14.1 11.1 - 14.9 % [facility] RDW SD 46.7 35.7 - 48.1 fL [facility] NRBC abs 0.00 0.00 - 0.01 K/cumm [facility] Blood 02/20/2023 8:16 PM CDT 02/20/2023 8:56 PM CDT us Estella Ellis MD PhD LAB BLOOD ORDERABL ES Final Result Performing Organization Address [facility]/ZIP Co de Phone Number [facility] [place] [address] * Basic metabolic panel (02/20/2023 8:16 PM CDT) [facility] Sodium 137 135 - 145 mmol/L [facility] Potassium, pl 4.2 3.3 - 4.9 mmol/L [facility] Chloride 104 97 - 110 mmol/L [facility] CO2 25 22 - 32 mmol/L [facility] Anion gap 8 2 - 15 mmol/L [facility] BUN 7 6 - 25 mg/dL [facility] Creatinine 0.88 0.60 - 1.10 mg/dL [facility] Glucose 107 70 - 199 mg/dL [facility] Comment: Interpretive Data Fasting glucose >/= [...] 2022. Calcium 9.4 8.5 - 10.3 mg/dL [facility] Blood 02/20/2023 8:16 PM CDT 02/20/2023 8:56 PM CDT us Estella Ellis MD PhD LAB BLOOD ORDERABL ES Final Result [facility] [place] [address] * Vancomycin level trough (02/20/2023 8:16 PM CDT) Vancomycin trough 13.3 10.0 - 20.0 mcg/mL [facility] Blood 02/20/2023 8:16 PM CDT 02/20/2023 8:56 PM CDT us Franca Echevarria DO LAB BLOOD ORDERABLE S Final Result [facility] Department [place] [address] * XR Radius Ulna Right 2 Views [...] Bilirubin, total 0.4 0.1 - 1.2 mg/dL [facility] Bilirubin, direct <0.2 0.1 - 0.3 mg/dL [facility] Protein, pl 6.2(L) 6.5 - 8.5 g/dL [facility] Albumin 2.9(L) 3.5 - 5.0 g/dL [facility] Alk phos 117 40 - 130 Units/L [facility] ALT 15 7 - 45 Units/L [facility] AST 23 10 - 45 Units/L [facility] Blood 02/20/2023 4:55 PM CDT 02/20/2023 5:05 PM CDT Franca Goldbergmintali DO LAB BLOOD ORDERABLE S Final Result [facility] HALL [facility] Department [place] [address] * (ABNORMAL) eGFR (02/20/2023 4:55 PM CDT) [facility] eGFR 69(L) 90 - 130 mL/min/1. 73 m2 [facility] Comment: Interpretive Data Reference Interval Normal [...] ORDERABLE S Final Result VALENTE RAMIREZ [facility] Department [place] [address] * (ABNORMAL) aPTT (02/20/2023 4:55 PM CDT) [facility] aPTT 85(H) 28 - 38 sec [facility] Comment: Interpretive Data Therapeutic heparin range: 60.0 - 94.0 seconds. Based on correlation with therapeutic heparin activity range of 0.3-0.7 Units/mL. Current interpretive data was last revised on 2020. Blood 02/20/2023 4:55 PM CDT 02/20/2023 5:08 PM CDT Narrative [facility] - 02/20/2023 5:16 PM CDT Draw STAT [...] ORDERABL ES Final Result Performing Organization Address City/[facility]/ZIP Co de Phone Number [facility] [place] [address] * Magnesium (02/20/2023 4:55 PM CDT) [facility] Magnesium 2.2 1.4 - 2.5 mg/dL [facility] Blood 02/20/2023 4:55 PM CDT 02/20/2023 5:05 PM CDT Franca Echevarria DO LAB BLOOD ORDERABLE S Final Result [facility] [place] [address] * Basic metabolic panel (02/20/2023 4:55 PM CDT) [facility] Sodium 136 135 - 145 mmol/L [facility] Potassium, pl 4.3 3.3 - 4.9 mmol/L [facility] Chloride 101 97 - 110 mmol/L [facility] CO2 25 22 - 32 mmol/L [facility] Anion gap 10 2 - 15 mmol/L [facility] BUN 8 6 - 25 mg/dL [facility] Creatinine 0.87 0.60 - 1.10 mg/dL [facility] Glucose 197 70 - 199 mg/dL [facility] Comment: Interpretive Data Fasting glucose >/= [...] 2022. Calcium 9.4 8.5 - 10.3 mg/dL [facility] Blood 02/20/2023 4:55 PM CDT 02/20/2023 5:05 PM CDT us Franca Echevarria DO LAB BLOOD ORDERABLE S Final Result [facility] Department [place] [address] * XR Wrist Right 3 or More [...] * POCT glucose (02/20/2023 11:10 AM CDT) [facility] Signature Glucose, POC 115 70 - 199 mg/dL [facility] Blood 02/20/2023 11:1 0 AM CDT 02/20/2023 11:10 AM CDT Franca Echevarria DO LAB POCT ORDERABLES - DEVICE Final Result [facility] Department [place] [address] * (ABNORMAL) aPTT (02/20/2023 10:34 AM CDT) aPTT 59(H) 28 - 38 sec [facility] Comment: Interpretive Data Therapeutic heparin range: 60.0 - 94.0 seconds. Based on correlation with therapeutic heparin activity range of 0.3-0.7 Units/mL. Current interpretive data was last revised on 2020. Blood 02/20/2023 10:3 4 AM CDT 02/20/2023 10:46 AM CDT Narrative [facility] - 02/20/2023 11:13 AM CDT Draw STAT [...] PhD LAB BLOOD ORDERABL ES Final Result [facility] Department [place] [address] * TRANSTHORACIC ECHO (TTE) COMPLETE W DOPPLER/CF W CONTRAST (02/20/2023 10:24 AM CDT) Pathologist [facility] LV EF 55-60 % CARDIOREPORT Anatomical Region Laterality Modality Ultrasound 02/20/2023 7:20 AM CDT Narrative 02/20/2023 12:38 PM CDT Patient name: Tiera Lobato Date of test: 02/20/2023 Type of test: TTE w/Doppler Hospital #: 0 Date of : 1945 (F) [employer] Administrator: Elian Merino RDCS Referring Physician: FRANCA ECHEVARRIA MD Contrast Agent: 1.1 ml Optison Administered, (1.9 ml wasted). Contrast Administered by: ICU Nurse Supervised/Interpreted by: Piper ??MD Paul Diagnosis: Location: [facility] Reason for test: MRSA bacteremia MV Structure: [...] 2=Hypo 3=Akinetic 4=Dyskin./Aneurysm 0=Not visualized) Parasternal Long [place]:MAS=1 BAS=1 MIL=1 MATA=1 Parasternal Short [place]:MAS=1 MIS=1 NC=1 MIL=1 MAL=1 MA=1 Apical 4 Chambers:=1 MIS=1 BIS=1 BAL=1 MAL=1 AL=1 AC=1 Apical 2 Chambers:AI=1 NC=1 BI=1 BA=1 MA=1 AA=1 AC=1 LV Global [...] Paul By signing this report, the attending workday consultant certifies that he or she has personally supervised and interpreted the echocardiogram and has reviewed and or edited and agrees with the written comments contained within the report. Procedure Note Piper Miller MD - 02/20/2023 Patient name: Tiera Lobato Date of test: 02/20/2023 Type of test: TTE w/Doppler Hospital #: 0 Date of : 1945 (F) [employer] Administrator: Elian Merino RDCS Referring Physician: FRANCA ECHEVARRIA MD Contrast Agent: 1.1 ml Optison Administered, (1.9 ml wasted). Contrast Administered by: ICU Nurse Supervised/Interpreted by: Piper Miller MD Diagnosis: Location: [facility] Reason for test: MRSA bacteremia MV Structure: [...] 2=Hypo 3=Akinetic 4=Dyskin./Aneurysm 0=Not visualized) Parasternal Long [place]:MAS=1 BAS=1 MIL=1 MATA=1 Parasternal Short [place]:MAS=1 MIS=1 NC=1 MIL=1 MAL=1 MA=1 Apical 4 Chambers:=1 MIS=1 BIS=1 BAL=1 MAL=1 AL=1 AC=1 Apical 2 Chambers:AI=1 NC=1 BI=1 BA=1 MA=1 AA=1 AC=1 LV Global [...] MD By signing this report, the attending workday consultant certifies that he or she has personally supervised and interpreted the echocardiogram and has reviewed and or edited and agrees with the written comments contained within the report. Franca Echevarria DO CV ECHO PROCEDURES Final Result * (ABNORMAL) eGFR (02/20/2023 3:51 AM CDT) [facility] eGFR 68(L) 90 - 130 mL/min/1. 73 [...] ORDERABLE S Final Result VALENTE RAMIREZ [facility] Department [place] [address] * (ABNORMAL) Differential, auto (02/20/2023 3:51 AM CDT) Neutrophil abs 2.9 1.7 - 6.5 K/cumm [facility] Imm gran abs 0.0 0.0 - 0.1 K/cumm [facility] Lymphocyte abs 1.3 0.8 - 3.3 K/cumm [facility] Monocyte abs 0.9(H) 0.2 - 0.8 K/cumm [facility] Eosinophil abs 0.2 0.0 - 0.5 K/cumm [facility] Basophil abs 0.0 0.0 - 0.1 K/cumm [facility] Neutrophil pct 54.5 % [facility] Comment: Interpretive Data Percent cell count reference ranges are not reported, since discordance with absolute values may lead to misinterpretation of CBC data. Current Interpretive Data was last revised on 2017. Imm gran pct 0.7 % [facility] Comment: Interpretive Data Percent cell count reference ranges are not reported, since discordance with absolute values may lead to misinterpretation of CBC data. Current Interpretive Data was last revised on 2017. Lymphocyte pct 23.9 % [facility] Comment: Interpretive Data Percent cell count reference ranges are not reported, since discordance with absolute values may lead to misinterpretation of CBC data. Current Interpretive Data was last revised on 2017. Monocyte pct 16.9 % [facility] Comment: Interpretive Data Percent cell count reference ranges are not reported, since discordance with absolute values may lead to misinterpretation of CBC data. Current Interpretive Data was last revised on 2017. Eosinophil pct 3.3 % [facility] Comment: Interpretive Data Percent cell count reference ranges are not reported, since discordance with absolute values may lead to misinterpretation of CBC data. Current Interpretive Data was last revised on 2017. Basophil pct 0.7 % [facility] Comment: Interpretive Data Percent cell count reference ranges are not reported, since discordance with absolute values may lead to misinterpretation of CBC data. Current Interpretive Data was last revised on 2017. Blood 02/20/2023 3:51 AM CDT 02/20/2023 4:41 AM CDT us Francakrysten Mcclellandski Giacomino DO LAB BLOOD ORDERABLE S Final Result Performing Organization Address [facility] Co de Phone Number [facility] [place] [address] * (ABNORMAL) Digoxin level (02/20/2023 3:51 AM CDT) Digoxin 1.4(H) 0.5 - 0.8 ng/mL [facility] Comment: Interpretive data Digoxin concentrations as high as 2 ng/mL may be useful in treating atrial fibrillation. Current interpretive data was last reviewed on 05/18/2013. Blood 02/20/2023 3:51 AM CDT 02/20/2023 4:39 AM CDT us Estella Ellis MD PhD LAB BLOOD ORDERABL ES Final Result Performing Organization Address [facility] [place] [address] * Magnesium (02/20/2023 3:51 AM CDT) Magnesium 1.8 1.4 - 2.5 mg/dL [facility] Blood 02/20/2023 3:51 AM CDT 02/20/2023 4:39 AM CDT us Franca Mcclellandski Giacomino DO LAB BLOOD ORDERABLE S Final Result Performing Organization Address [facility] [place] [address] * (ABNORMAL) Basic metabolic panel (02/20/2023 3:51 AM CDT) Sodium 136 135 - 145 mmol/L [facility] Potassium, pl 4.3 3.3 - 4.9 mmol/L [facility] Chloride 103 97 - 110 mmol/L [facility] CO2 25 22 - 32 mmol/L [facility] Anion gap 8 2 - 15 mmol/L [facility] BUN 7 6 - 25 mg/dL [facility] Creatinine 0.88 0.60 - 1.10 mg/dL [facility] Glucose 209(H) 70 - 199 mg/dL [facility] Comment: Interpretive Data Fasting glucose >/= [...] Calcium 8.8 8.5 - 10.3 mg/dL [facility] Blood 02/20/2023 3:51 AM CDT 02/20/2023 4:39 AM CDT us Franca Echevarria DO LAB BLOOD ORDERABLE S Final Result [facility] Department [place] [address] * (ABNORMAL) CBC with auto differential (02/20/2023 3:51 AM CDT) WBC 5.4 3.8 - 9.9 K/cumm [facility] Hgb 8.0(L) 11.9 - 15.5 g/dL [facility] Hct 25.2(L) 35.6 - 45.5 % [facility] Plt 291 150 - 400 K/cumm [facility] MPV 12.3 9.1 - 12.3 fL [facility] RBC 2.73(L) 3.90 - 5.20 M/cumm [facility] MCV 92.3 81.3 - 96.4 fL [facility] MCH 29.3 27.1 - 33.3 pg [facility] MCHC 31.7(L) 32.3 - 35.7 g/dL [facility] RDW CV 14.2 11.1 - 14.9 % [facility] RDW SD 47.8 35.7 - 48.1 fL [facility] NRBC abs 0.00 0.00 - 0.01 K/cumm [facility] Blood 02/20/2023 3:51 AM CDT 02/20/2023 4:41 AM CDT us Franca Echevarria DO LAB BLOOD ORDERABLE S Final Result Performing Organization Address [facility] de Phone Number [facility] Department [place] [address] * (ABNORMAL) aPTT (02/20/2023 1:39 AM CDT) aPTT 128(H) 28 - 38 sec [facility] Comment: Interpretive Data Therapeutic heparin range: 60.0 - 94.0 seconds. Based on correlation with therapeutic heparin activity range of 0.3-0.7 Units/mL. Current interpretive data was last revised on 2020. Blood 02/20/2023 1:39 AM CDT 02/20/2023 1:52 AM CDT Narrative [facility] - 02/20/2023 2:41 AM CDT Draw STAT [...] ORDERABL ES Final Result Performing Organization Address [facility] Co de Phone Number [facility] Department [place] [address] * (ABNORMAL) eGFR (02/19/2023 5:50 PM CDT) Pathologist [facility] eGFR 71(L) 90 - 130 mL/min/1. 73 [...] ORDERABLE S Final Result EMILYPORTIA JAMES [facility] Department [place] [address] * (ABNORMAL) aPTT (02/19/2023 5:50 PM CDT) [facility] aPTT 47(H) 28 - 38 sec [facility] Comment: Interpretive Data Therapeutic heparin range: 60.0 - 94.0 seconds. Based on correlation with therapeutic heparin activity range of 0.3-0.7 Units/mL. Current interpretive data was last revised on 2020. Blood 02/19/2023 5:50 PM CDT 02/19/2023 6:14 PM CDT Franca Dugolenski Giacomino DO LAB BLOOD ORDERABLE S Final Result Performing Organization Address [facility] Co de Phone Number [facility] [place] [address] * Magnesium (02/19/2023 5:50 PM CDT) [facility] Magnesium 2.0 1.4 - 2.5 mg/dL [facility] Blood 02/19/2023 5:50 PM CDT 02/19/2023 6:23 PM CDT Franca [email or web address] DO LAB BLOOD ORDERABLE S Final Result Performing Organization Address [facility] de Phone Number [facility] [place] [address] * Basic metabolic panel (02/19/2023 5:50 PM CDT) Pathologist [facility] Sodium 140 135 - 145 mmol/L [facility] Potassium, pl 3.6 3.3 - 4.9 mmol/L [facility] Chloride 107 97 - 110 mmol/L [facility] CO2 26 22 - 32 mmol/L [facility] Anion gap 7 2 - 15 mmol/L [facility] BUN 8 6 - 25 mg/dL [facility] Creatinine 0.85 0.60 - 1.10 mg/dL [facility] Glucose 128 70 - 199 mg/dL [facility] Comment: Interpretive Data Fasting glucose >/= [...] Calcium 9.1 8.5 - 10.3 mg/dL [facility] Blood 02/19/2023 5:50 PM CDT 02/19/2023 6:23 PM CDT us Franca Waltersacomolly DO LAB BLOOD ORDERABLE S Final Result [facility] Department [place] [address] * XR Chest 1 View (02/19/2023 3:43 [...] LAB BLOOD ORDERABLE S Final Result [facility] Department [place] [address] * (ABNORMAL) eGFR (02/19/2023 5:02 AM CDT) [...] ORDERABLE S Final Result VALENTE RAMIREZ [facility] Department [place] [address] * Differential, auto (02/19/2023 5:02 AM CDT) Neutrophil abs 2.5 1.7 - 6.5 K/cumm VAL[facility] RAMIREZ Imm gran abs 0.0 0.0 - 0.1 K/cumm [facility] Lymphocyte abs 1.1 0.8 - 3.3 K/cumm [facility] Monocyte abs 0.8 0.2 - 0.8 K/cumm [facility] Eosinophil abs 0.2 0.0 - 0.5 K/cumm [facility] Basophil abs 0.0 0.0 - 0.1 K/cumm [facility] Neutrophil pct 53.2 % [facility] Comment: Interpretive Data Percent cell count reference ranges are not reported, since discordance with absolute values may lead to misinterpretation of CBC data. Current Interpretive Data was last revised on 2017. Imm gran pct 0.6 % [facility] Comment: Interpretive Data Percent cell count reference ranges are not reported, since discordance with absolute values may lead to misinterpretation of CBC data. Current Interpretive Data was last revised on 2017. Lymphocyte pct 24.4 % [facility] Comment: Interpretive Data Percent cell count reference ranges are not reported, since discordance with absolute values may lead to misinterpretation of CBC data. Current Interpretive Data was last revised on 2017. Monocyte pct 16.1 % [facility] Comment: Interpretive Data Percent cell count reference ranges are not reported, since discordance with absolute values may lead to misinterpretation of CBC data. Current Interpretive Data was last revised on 2017. Eosinophil pct 5.1 % [facility] Comment: Interpretive Data Percent cell count reference ranges are not reported, since discordance with absolute values may lead to misinterpretation of CBC data. Current Interpretive Data was last revised on 2017. Basophil pct 0.6 % [facility] Comment: Interpretive Data Percent cell count reference ranges are not reported, since discordance with absolute values may lead to misinterpretation of CBC data. Current Interpretive Data was last revised on 2017. Blood 02/19/2023 5:02 AM CDT 02/19/2023 5:17 AM CDT us Franca Echevarria DO LAB BLOOD ORDERABLE S Final Result [facility] Department [place] [address] * (ABNORMAL) aPTT (02/19/2023 5:02 AM CDT) aPTT 45(H) 28 - 38 sec [facility] Comment: Interpretive Data Therapeutic heparin range: 60.0 - 94.0 seconds. Based on correlation with therapeutic heparin activity range of 0.3-0.7 Units/mL. Current interpretive data was last revised on 2020. Blood 02/19/2023 5:02 AM CDT 02/19/2023 5:38 AM CDT Narrative [facility] - 02/19/2023 5:47 AM CDT Draw STAT [...] ORDERABL ES Final Result Performing Organization Address City/[facility] [place] [address] * (ABNORMAL) Digoxin level (02/19/2023 5:02 AM CDT) Digoxin 2.0(H) 0.5 - 0.8 ng/mL [facility] Comment: Interpretive data Digoxin concentrations as high as 2 ng/mL may be useful in treating atrial fibrillation. Current interpretive data was last reviewed on 05/18/2013. Blood 02/19/2023 5:02 AM CDT 02/19/2023 5:17 AM CDT Estella Ellis MD PhD LAB BLOOD ORDERABL ES Final Result Performing Organization Address City/[facility] Co de Phone Number [facility] [place] [address] * Magnesium (02/19/2023 5:02 AM CDT) Magnesium 1.9 1.4 - 2.5 mg/dL [facility] Blood 02/19/2023 5:02 AM CDT 02/19/2023 5:17 AM CDT [employer] DO LAB BLOOD ORDERABLE S Final Result [facility] Department [place] [address] * Basic metabolic panel (02/19/2023 5:02 AM CDT) Pathologist [facility] Sodium 141 135 - 145 mmol/L [facility] Potassium, pl 4.0 3.3 - 4.9 mmol/L [facility] Chloride 110 97 - 110 mmol/L [facility] CO2 22 22 - 32 mmol/L [facility] Anion gap 9 2 - 15 mmol/L [facility] BUN 8 6 - 25 mg/dL [facility] Creatinine 0.82 0.60 - 1.10 mg/dL [facility] Glucose 104 70 - 199 mg/dL [facility] Comment: Interpretive Data Fasting glucose >/= [...] Calcium 8.8 8.5 - 10.3 mg/dL [facility] Blood 02/19/2023 5:02 AM CDT 02/19/2023 5:17 AM CDT us [employer] Giacomino DO LAB BLOOD ORDERABLE S Final Result Performing Organization Address [facility] de Phone Number [facility] Department [place] [address] * (ABNORMAL) CBC with auto differential (02/19/2023 5:02 AM CDT) [facility] WBC 4.7 3.8 - 9.9 K/cumm [facility] Hgb 8.6(L) 11.9 - 15.5 g/dL [facility] Hct 25.6(L) 35.6 - 45.5 % [facility] Plt 274 150 - 400 K/cumm [facility] MPV 11.8 9.1 - 12.3 fL [facility] RBC 2.84(L) 3.90 - 5.20 M/cumm [facility] MCV 90.1 81.3 - 96.4 fL [facility] MCH 30.3 27.1 - 33.3 pg [facility] MCHC 33.6 32.3 - 35.7 g/dL [facility] RDW CV 13.9 11.1 - 14.9 % [facility] RDW SD 45.9 35.7 - 48.1 fL [facility] NRBC abs 0.00 0.00 - 0.01 K/cumm [facility] Blood 02/19/2023 5:02 AM CDT 02/19/2023 5:17 AM CDT Franca Echevarria DO LAB BLOOD ORDERABLE S Final Result Performing Organization Address [facility] Co de Phone Number [facility] Department [place] [address] * (ABNORMAL) eGFR (02/18/2023 5:33 PM CDT) [facility] eGFR 74(L) 90 - 130 mL/min/1. 73 m2 [facility] Comment: Interpretive Data Reference Interval Normal [...] LAB BLOOD ORDERABLE S Final Result [facility] Department [place] [address] * Critical Result Callback Chemistry (02/18/2023 5:33 PM CDT) Date Notified [id number] VALENTE RAMIREZ Time Notified 1834 VALENTE RAMIREZ TestName Digoxin [facility] H[facility] Called/Read Back Kel RAMIREZ Credentials PHILIP RAMIREZ Called By ksenia RAMIREZ Blood 02/18/2023 5:33 PM CDT 02/18/2023 6:03 PM CDT us Franca Dugolenski Giacomino DO LAB BLOOD ORDERABLE S Final Result Performing Organization Address [facility] [place] [address] * (ABNORMAL) Digoxin level (02/18/2023 5:33 PM CDT) [facility] Digoxin 2.9(C) 0.5 - 0.8 ng/mL [facility] Comment: Interpretive data Digoxin concentrations as high as 2 ng/mL may be useful in treating atrial fibrillation. Current interpretive data was last reviewed on 05/18/2013. Blood 02/18/2023 5:33 PM CDT 02/18/2023 6:03 PM CDT us Franca Rodriguezi Giacomino DO LAB BLOOD ORDERABLE S Final Result Performing Organization Address [facility] Co de Phone Number [facility] [place] [address] * Magnesium (02/18/2023 5:33 PM CDT) [facility] Magnesium 2.0 1.4 - 2.5 mg/dL [facility] Blood 02/18/2023 5:33 PM CDT 02/18/2023 6:03 PM CDT Franca Carcamo Giacomino DO LAB BLOOD ORDERABLE S Final Result Performing Organization Address [facility] [place] [address] * Basic metabolic panel (02/18/2023 5:33 PM CDT) [facility] Sodium 137 135 - 145 mmol/L [facility] Potassium, pl 4.1 3.3 - 4.9 mmol/L [facility] Chloride 107 97 - 110 mmol/L [facility] CO2 23 22 - 32 mmol/L [facility] Anion gap 7 2 - 15 mmol/L [facility] BUN 8 6 - 25 mg/dL [facility] Creatinine 0.82 0.60 - 1.10 mg/dL [facility] Glucose 114 70 - 199 mg/dL [facility] Comment: Interpretive Data Fasting glucose >/= [...] Calcium 8.6 8.5 - 10.3 mg/dL [facility] Blood 02/18/2023 5:33 PM CDT 02/18/2023 6:03 PM CDT us Franca Echevarria DO LAB BLOOD ORDERABLE S Final Result Performing Organization Address City/[facility]/ZIP Co de Phone Number [facility] [place] [address] * Vancomycin level trough Draw trough 24 hours after dose administration (02/18/2023 5:33 PM CDT) [facility] Vancomycin trough 14.8 10.0 - 20.0 mcg/mL [facility] Blood 02/18/2023 5:33 PM CDT 02/18/2023 6:03 PM CDT Narrative [facility] - 02/18/2023 6:31 PM CDT Draw trough 24 hours after dose administration us Olimpia Long MD LAB BLOOD ORDERAB LES Final Result [facility] [place] [address] * CT Chest Abdomen Pelvis W Contrast [...] CDT) aPTT 60(H) 28 - 38 sec [facility] Comment: Interpretive Data Therapeutic heparin range: 60.0 - 94.0 seconds. Based on correlation with therapeutic heparin activity range of 0.3-0.7 Units/mL. Current interpretive data was last revised on 2020. Blood 02/18/2023 8:50 AM CDT 02/18/2023 9:05 AM CDT Franca Dusheriski Giacomino DO LAB BLOOD ORDERABLE S Final Result Performing Organization Address [facility] Co de Phone Number [facility] [place] [address] * TSH reflex to free T4 (02/18/2023 4:26 AM CDT) Pathologist [facility] TSH 2.14 0.30 - 4.20 mcIUnit/mL [facility] Blood 02/18/2023 4:26 AM CDT 02/18/2023 5:05 AM CDT Franca Mcclellandski Giacomino DO LAB BLOOD ORDERABLE S Final Result Performing Organization Address City/[facility] Co de Phone Number [facility] [place] [address] * (ABNORMAL) Lipid panel (02/18/2023 4:26 AM CDT) Cholesterol 78 30 - 199 mg/dL [facility] Comment: Interpretive Data Ages < or [...] revised on 2018. Triglycerides 124 <=149 mg/dL [facility] Comment: Interpretive Data Ages < or [...] revised on 2018. HDL 16(L) >=40 mg/dL [facility] Comment: Interpretive Data Ages < or = [...] 2018. LDL, calculated 37 <=129 mg/dL [facility] Comment: Interpretive Data Ages < or [...] revised on 2018. Non-HDL Cholesterol 62 mg/dL [facility] Comment: Interpretive Data Ages < or [...] last revised on 2018. Chol/HDL ratio 5 [facility] Blood 02/18/2023 4:26 AM CDT 02/18/2023 4:45 AM CDT us Franca Echevarria DO LAB BLOOD ORDERABLE S Final Result [facility] [place] [address] * (ABNORMAL) Reticulocyte Count (02/18/2023 4:26 AM CDT) [facility] Retics, absolute 0.031 0.020 - 0.087 M/cumm [facility] Retics 1.1 0.4 - 2.9 % [facility] Reticulocyte Hgb 24.5(L) 30.5 - 38.0 pg [facility] Blood 02/18/2023 4:26 AM CDT 02/18/2023 4:44 AM CDT Franca Echevarria DO LAB BLOOD ORDERABLE S Final Result Performing Organization Address [facility] de Phone Number [facility] Department [place] [address] * (ABNORMAL) eGFR (02/18/2023 4:26 AM CDT) [facility] eGFR 73(L) 90 - 130 mL/min/1. 73 m2 [facility] Comment: Interpretive Data Reference Interval Normal [...] DO LAB BLOOD ORDERABLE S Final Result [facility] Department [place] [address] * Differential, auto (02/18/2023 4:26 AM CDT) Neutrophil abs 4.0 1.7 - 6.5 K/cumm [facility] Imm gran abs 0.0 0.0 - 0.1 K/cumm [facility] Lymphocyte abs 0.9 0.8 - 3.3 K/cumm [facility] Monocyte abs 0.7 0.2 - 0.8 K/cumm [facility] Eosinophil abs 0.1 0.0 - 0.5 K/cumm [facility] Basophil abs 0.0 0.0 - 0.1 K/cumm [facility] Neutrophil pct 69.4 % [facility] Comment: Interpretive Data Percent cell count reference ranges are not reported, since discordance with absolute values may lead to misinterpretation of CBC data. Current Interpretive Data was last revised on 2017. Imm gran pct 0.3 % [facility] Comment: Interpretive Data Percent cell count reference ranges are not reported, since discordance with absolute values may lead to misinterpretation of CBC data. Current Interpretive Data was last revised on 2017. Lymphocyte pct 15.7 % [facility] Comment: Interpretive Data Percent cell count [...] on 2017. Eosinophil pct 1.7 % [facility] Comment: Interpretive Data Percent cell count reference ranges are not reported, since discordance with absolute values may lead to misinterpretation of CBC data. Current Interpretive Data was last revised on 2017. Basophil pct 0.5 % [facility] Comment: Interpretive Data Percent cell count reference ranges are not reported, since discordance with absolute values may lead to misinterpretation of CBC data. Current Interpretive Data was last revised on 2017. Blood 02/18/2023 4:26 AM CDT 02/18/2023 4:44 AM CDT Franca [email or web address] DO LAB BLOOD ORDERABLE S Final Result Performing Organization Address City/[facility]/ZIP Co de Phone Number [facility] Department [place] [address] * (ABNORMAL) Vitamin B12 (02/18/2023 4:26 AM CDT) Pathologist [facility] Vitamin B12 1,886(H) 230 - 1,250 pg/mL [facility] Blood 02/18/2023 4:26 AM CDT 02/18/2023 4:45 AM CDT Franca [email or web address] DO LAB BLOOD ORDERABLE S Final Result [facility] Department [place] [address] * Folate (02/18/2023 4:26 AM CDT) Folic acid 15.3 >=5.0 ng/mL [facility] Blood 02/18/2023 4:26 AM CDT 02/18/2023 4:45 AM CDT us Franca Dugoadityaski Giacomino DO LAB BLOOD ORDERABLE S Final Result Performing Organization Address City/[facility] Co de Phone Number [facility] [place] [address] * (ABNORMAL) Hemoglobin A1c (02/18/2023 4:26 AM CDT) Pathologist [facility] Hgb A1C 5.8(H) 4.0 - 5.6 % [facility] Estimated Average Glucose 120 mg/dL [facility] Comment: The ADA recommends reporting an estimated [...] ORDERABLE S Final Result Performing Organization Address [facility] [place] [address] * Magnesium (02/18/2023 4:26 AM CDT) [facility] Magnesium 2.0 1.4 - 2.5 mg/dL [facility] Blood 02/18/2023 4:26 AM CDT 02/18/2023 4:50 AM CDT us Franca Dusheriski Giacomino DO LAB BLOOD ORDERABLE S Final Result Performing Organization Address City/[facility] Co de Phone Number [facility] [place] [address] * (ABNORMAL) Basic metabolic panel (02/18/2023 4:26 AM CDT) [facility] Sodium 139 135 - 145 mmol/L [facility] Potassium, pl 3.8 3.3 - 4.9 mmol/L [facility] Chloride 108 97 - 110 mmol/L [facility] CO2 23 22 - 32 mmol/L [facility] Anion gap 8 2 - 15 mmol/L [facility] BUN 9 6 - 25 mg/dL [facility] Creatinine 0.83 0.60 - 1.10 mg/dL [facility] Glucose 111 70 - 199 mg/dL [facility] Comment: Interpretive Data Fasting glucose >/= [...] 2022. Calcium 8.0(L) 8.5 - 10.3 mg/dL [facility] Blood 02/18/2023 4:26 AM CDT 02/18/2023 4:50 AM CDT us Franca Echevarria DO LAB BLOOD ORDERABLE S Final Result [facility] Department [place] [address] * (ABNORMAL) CBC with auto differential (02/18/2023 4:26 AM CDT) [facility] WBC 5.8 3.8 - 9.9 K/cumm [facility] Hgb 8.3(L) 11.9 - 15.5 g/dL [facility] Hct 24.7(L) 35.6 - 45.5 % [facility] Plt 235 150 - 400 K/cumm [facility] MPV 13.3(H) 9.1 - 12.3 fL [facility] RBC 2.75(L) 3.90 - 5.20 M/cumm [facility] MCV 89.8 81.3 - 96.4 fL [facility] MCH 30.2 27.1 - 33.3 pg [facility] MCHC 33.6 32.3 - 35.7 g/dL [facility] RDW CV 13.4 11.1 - 14.9 % [facility] RDW SD 44.1 35.7 - 48.1 fL [facility] NRBC abs 0.00 0.00 - 0.01 K/cumm [facility] Blood 02/18/2023 4:26 AM CDT 02/18/2023 4:44 AM CDT us Franca Echevarria DO LAB BLOOD ORDERABLE S Final Result [facility] Department [place] [address] * (ABNORMAL) aPTT (02/18/2023 2:25 AM CDT) aPTT 64(H) 28 - 38 sec [facility] Comment: Interpretive Data Therapeutic heparin range: 60.0 - 94.0 seconds. Based on correlation with therapeutic heparin activity range of 0.3-0.7 Units/mL. Current interpretive data was last revised on 2020. Blood 02/18/2023 2:25 AM CDT 02/18/2023 2:39 AM CDT Narrative [facility] - 02/18/2023 3:05 AM CDT Draw STAT [...] ORDERABL ES Final Result [facility] Department [place] [address] * XR Radius Ulna Right 2 Views [...] images may or may not represent the pilot point source data set and thus may contain changes that may lower the accuracy of this second-opinion interpretation. Electronically signed by: Penelope Pollard 02/18/2023 8:09 AM CDT EXAMINATION: RADIOLOGY CONSULTATION ON OUTSIDE IMAGING STUDY STUDY INITIALLY PERFORMED: 02/15/2023 at [place]. 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 ??Multivessel severe [...] IMAGING STUDY STUDY INITIALLY PERFORMED: 02/15/2023 at [place]. 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 Multivessel severe [...] images may or may not represent the pilot point source data set and thus may contain changes that may lower the accuracy of this second-opinion interpretation. Electronically signed by: Stefanie Burden M.D. Aleksey Mendez MD IM CT PROCEDURES Final Result * XR Outside Reference (02/17/2023 8:11 PM CDT) Impressions RADSAMANTHA_JAMES - 02/17/2023 8:11 PM CDT These images are for Reference purposes only and have not been reviewed by [facility] Radiology. ??There will be no report generated by a [facility] Radiologist. Narrative [email or web address]_JAMES - 02/17/2023 8:11 PM CDT EXAMINATION: ??Images For Reference Purposes Only Aleksey Mendez MD IMG XR PROCEDURES Final Result Performing Organization Address [facility] Co de Phone Number [email or web address] * XR Outside Reference (02/17/2023 8:09 PM CDT) Impressions HUDSON_JAMES - 02/17/2023 8:09 PM CDT These images are for Reference purposes only and have not been reviewed by [facility] Radiology. ??There will be no report generated by a [facility] Radiologist. Narrative RADSAMANTHA_JAMES - 02/17/2023 8:09 PM CDT EXAMINATION: ??Images For Reference Purposes Only Aleksey Mendez MD IMG XR PROCEDURES Final Result Performing Organization Address [facility] de Phone Number [email or web address] * Infection Prevention MRSA Only (Staphylococcus aureus) Culture Nasal (02/17/2023 6:29 PM CDT) Report Final Report: Negative [facility] Nasal 02/17/2023 6:29 PM CDT 02/17/2023 7:19 PM CDT Narrative [facility] - 02/18/2023 8:52 PM CDT Testing performed by [facility] ([phone]). Franca Echevarria DO LAB MICROBIOLOGY - GENERAL ORDERABLES Final Result Performing Organization Address City/[facility] Co de Phone Number [facility] Department [place] [address] * Urine culture Urine (02/17/2023 6:27 PM CDT) Report Final Report: No growth [facility] Urine 02/17/2023 6:27 PM CDT 02/17/2023 10:56 PM CDT Narrative [facility] - 02/20/2023 10:49 AM CDT Urine culture reflexed based upon urinalysis results. Testing performed by [facility] ([phone]) Olimpia Long MD LAB MICROBIOLOGY - GENERAL ORDERABLES Final Result Performing Organization Address [facility] Co de Phone Number [facility] Department [place] [address] * (ABNORMAL) Urinalysis, microscopic only (02/17/2023 6:27 PM CDT) WBC, ur 11-20(A) 0 - 5 /HPF [facility] RBC, ur 21-50(A) 0 - 2 /HPF [facility] Mucous, ur Present(A) [facility] Culture Reflex Comment Reflex to urine culture will be performed. [facility] Urine 02/17/2023 6:27 PM CDT 02/17/2023 6:37 PM CDT Olimpia Long MD LAB URINE ORDERAB LES Final Result Performing Organization Address City/[facility]/ZIP Co de Phone Number [facility] Department [place] [address] * (ABNORMAL) Urinalysis reflex to microscopic and culture Urine (02/17/2023 6:27 PM CDT) Color, ur Straw Yellow [facility] Clarity, ur Clear Clear [facility] Specific gravity, ur 1.016 1.003 - 1.030 [facility] pH, urine 6.5 [facility] Protein, ur ql 1+(A) Negative [facility] Glucose, ur ql Negative Negative [facility] Ketones, ur Negative Negative [facility] Bilirubin, ur Negative Negative [facility] Blood, ur 2+(A) Negative [facility] Urobilinogen, ur <2.0 <2.0 mg/dL [facility] Nitrite, ur Negative Negative [facility] Leukocyte esterase, ur Trace(A) Negative [facility] UA reflex comment Reflex to microscopic UA will be performed. [facility] Urine 02/17/2023 6:27 PM CDT 02/17/2023 6:37 [...] tendency for uric acid stone formation. Source: RollCall [email or web address]). Last revised 06-26-2017 us Olimpia Long MD LAB MICROBIOLOGY - GENERAL ORDERABLES Final Result [facility] Department [place] [address] * Blood culture Blood (02/17/2023 5:47 PM CDT) Report Final Report: No growth [facility] Blood 02/17/2023 5:47 PM CDT 02/17/2023 5:59 PM CDT Narrative [facility] - 02/22/2023 7:00 AM CDT Collection->Peripheral 1. [...] organism identification may be performed using the magnetU Gram-Positive Blood Culture Assay. This assay detects microbial DNA in positive blood culture broth via hybridization of target DNA to capture oligonucleotides on a microarray. This assay has been cleared by the [place] Food and Drug Administration and its performance characteristics have been verified by the [facility]. 5. ?For questions about this culture, contact the Microbiology Laboratory at [phone]. Interpretive data was last revised on 2019. Olimpia Long MD LAB MICROBIOLOGY - GENERAL ORDERABLES Final Result [facility] Department [place] [address] * Blood culture Blood (02/17/2023 5:47 PM [...] organism identification may be performed using the [employer] Gram-Positive Blood Culture Assay. This assay detects microbial DNA in positive blood culture broth via hybridization of target DNA to capture oligonucleotides on a microarray. This assay has been cleared by the [place] Food and Drug Administration and its performance characteristics have been verified by the [facility]. 5. ?For questions about this culture, contact the Microbiology Laboratory at [phone]. Interpretive data was last revised on 2019. Olimpia Long MD LAB MICROBIOLOGY - GENERAL ORDERABLES Final Result Performing Organization Address City/[facility]/ZIP Co de Phone Number [facility] Department [place] [address] * Type and screen (02/17/2023 5:44 PM CDT) ABO Rh B Negative [facility] Hceri, indirect Negative [facility] Blood 02/17/2023 5:44 PM CDT 02/17/2023 6:10 PM CDT Narrative [facility] - 02/17/2023 6:56 PM CDT Has the patient had Daratumumab or Isatuximab in the past 6 months?->Unknown Olimpia Long MD LAB BLOOD BANK TE ST ORDERABLES Final Result [facility] [place] [address] * Lactate (02/17/2023 5:44 PM CDT) Lactate 1.6 0.7 - 2.0 mmol/L [facility] Blood 02/17/2023 5:44 PM CDT 02/17/2023 6:00 PM CDT Olimpia Long MD LAB BLOOD ORDERAB LES Final Result [facility] Department [place] [address] * Troponin I high-sensitivity (02/17/2023 5:44 PM CDT) Trop I hs 11 <=17 ng/L [facility] Comment: Interpretive Data For further hscTnI resources including the diagnostic algorithm and an aid in interpretation, copy and paste this link: https://bjhlab.testcatalog.org/show/[email or web address] Current Interpretive Data last revised 2019. Blood 02/17/2023 5:44 PM CDT 02/17/2023 6:00 PM CDT Olimpia Long MD LAB BLOOD ORDERAB LES Final Result Performing Organization Address [facility] [place] [address] * Vancomycin level random (02/17/2023 5:43 PM CDT) Pathologist [facility] Vancomycin random 16.5 mcg/mL [facility] Comment: Interpretive Data No reference ranges have been established for random drug levels. Current Interpretive Data was last revised on 2020. Blood 02/17/2023 5:43 PM CDT 02/17/2023 6:00 PM CDT Franca Echevarria DO LAB BLOOD ORDERABLE S Final Result Performing Organization Address City/[facility]/ZIP Co de Phone Number [facility] [place] [address] * (ABNORMAL) eGFR (02/17/2023 5:43 PM CDT) eGFR 67(L) 90 - 130 mL/min/1. 73 m2 [facility] Comment: Interpretive Data Reference Interval Normal [...] DO LAB BLOOD ORDERABLE S Final Result [facility] Department [place] [address] * Magnesium (02/17/2023 5:43 PM CDT) Pathologist [facility] Magnesium 2.0 1.4 - 2.5 mg/dL [facility] Blood 02/17/2023 5:43 PM CDT 02/17/2023 5:56 PM CDT us Franca Dona Echevarria DO LAB BLOOD ORDERABLE S Final Result [facility] Department [place] [address] * (ABNORMAL) Differential, auto (02/17/2023 5:43 PM CDT) Neutrophil abs 4.8 1.7 - 6.5 K/cumm [facility] Imm gran abs 0.1 0.0 - 0.1 K/cumm [facility] Lymphocyte abs 0.6(L) 0.8 - 3.3 K/cumm [facility] Monocyte abs 0.6 0.2 - 0.8 K/cumm [facility] Eosinophil abs 0.1 0.0 - 0.5 K/cumm [facility] Basophil abs 0.0 0.0 - 0.1 K/cumm [facility] Neutrophil pct 78.8 % [facility] Comment: Interpretive Data Percent cell count reference ranges are not reported, since discordance with absolute values may lead to misinterpretation of CBC data. Current Interpretive Data was last revised on 2017. Imm gran pct 0.8 % [facility] Comment: Interpretive Data Percent cell count reference ranges are not reported, since discordance with absolute values may lead to misinterpretation of CBC data. Current Interpretive Data was last revised on 2017. Lymphocyte pct 9.4 % [facility] Comment: Interpretive Data Percent cell count reference ranges are not reported, since discordance with absolute values may lead to misinterpretation of CBC data. Current Interpretive Data was last revised on 2017. Monocyte pct 9.4 % [facility] Comment: Interpretive Data Percent cell count reference ranges are not reported, since discordance with absolute values may lead to misinterpretation of CBC data. Current Interpretive Data was last revised on 2017. Eosinophil pct 1.3 % [facility] Comment: Interpretive Data Percent cell count reference ranges are not reported, since discordance with absolute values may lead to misinterpretation of CBC data. Current Interpretive Data was last revised on 2017. Basophil pct 0.3 % [facility] Comment: Interpretive Data Percent cell count reference ranges are not reported, since discordance with absolute values may lead to misinterpretation of CBC data. Current Interpretive Data was last revised on 2017. Blood 02/17/2023 5:43 PM CDT 02/17/2023 6:00 PM CDT Franca Carcamo [employer] DO LAB BLOOD ORDERABLE S Final Result Performing Organization Address City/[facility] Co de Phone Number [facility] Department [place] [address] * (ABNORMAL) CBC with auto differential (02/17/2023 5:43 PM CDT) WBC 6.1 3.8 - 9.9 K/cumm [facility] Hgb 8.2(L) 11.9 - 15.5 g/dL [facility] Hct 25.9(L) 35.6 - 45.5 % [facility] Plt 224 150 - 400 K/cumm [facility] MPV 12.6(H) 9.1 - 12.3 fL [facility] RBC 2.77(L) 3.90 - 5.20 M/cumm [facility] MCV 93.5 81.3 - 96.4 fL [facility] MCH 29.6 27.1 - 33.3 pg [facility] MCHC 31.7(L) 32.3 - 35.7 g/dL [facility] RDW CV 13.2 11.1 - 14.9 % [facility] RDW SD 45.1 35.7 - 48.1 fL [facility] NRBC abs 0.00 0.00 - 0.01 K/cumm [facility] Blood 02/17/2023 5:43 PM CDT 02/17/2023 6:00 PM CDT Franca Carcamo Micro Interventional [email or web address] DO LAB BLOOD ORDERABLE S Final Result [facility] Department [place] [address] * (ABNORMAL) Comprehensive metabolic panel (02/17/2023 5:43 PM CDT) Sodium 139 135 - 145 mmol/L [facility] Potassium, pl 4.2 3.3 - 4.9 mmol/L [facility] Chloride 108 97 - 110 mmol/L [facility] CO2 21(L) 22 - 32 mmol/L [facility] Anion gap 10 2 - 15 mmol/L [facility] BUN 9 6 - 25 mg/dL [facility] Creatinine 0.89 0.60 - 1.10 mg/dL [facility] Glucose 120 70 - 199 mg/dL [facility] Comment: Interpretive Data Fasting glucose >/= [...] 2022. Calcium 7.8(L) 8.5 - 10.3 mg/dL [facility] Bilirubin, total 0.3 0.1 - 1.2 mg/dL [facility] Protein, pl 5.9(L) 6.5 - 8.5 g/dL [facility] Albumin 2.9(L) 3.5 - 5.0 g/dL [facility] Alk phos 116 40 - 130 Units/L [facility] ALT 16 7 - 45 Units/L [facility] AST 17 10 - 45 Units/L [facility] Blood 02/17/2023 5:43 PM CDT 02/17/2023 5:56 PM CDT us Franca Dugolenski Giacomino DO LAB BLOOD ORDERABLE S Final Result Performing Organization Address [facility] [place] [address] * (ABNORMAL) aPTT (02/17/2023 5:43 PM CDT) aPTT 45(H) 28 - 38 sec [facility] Comment: Interpretive Data Therapeutic heparin range: 60.0 - 94.0 seconds. Based on correlation with therapeutic heparin activity range of 0.3-0.7 Units/mL. Current interpretive data was last revised on 2020. Blood 02/17/2023 5:4 3 PM CDT 02/17/2023 6:11 PM CDT Narrative [facility] - 02/17/2023 6:21 PM CDT Baseline prior to heparin initiation Franca Echevarria DO [facility] BLOOD ORDERABLE S Final Result Performing Organization Address [facility] de Phone Number [facility] [place] [address] * (ABNORMAL) Protime-INR (02/17/2023 5:43 PM CDT) PT 20.3(H) 10.3 - 13.7 sec [facility] INR 1.78(H) 0.90 - 1.20 [facility] Comment: Interpretive data Oral anticoagulant therapeutic ranges: Venous thromboembolism prophylaxis or treatment: 2.0-3.0 CARDIOLOGY Standard range: 2.0-3.0 High-intensity range: 2.5-3.5 Refer to indication-specific guidelines for appropriate target ranges for prosthetic heart valve replacement. Current interpretive data was last revised on 2019. Blood 02/17/2023 5:43 PM CDT 02/17/2023 6:11 PM CDT Narrative [facility] - 02/17/2023 6:21 PM CDT Baseline prior to heparin initiation Franca Echevarria DO LAB BLOOD ORDERABLE S Final Result [facility] Department [place] [address] * ECG 12 lead (02/17/2023 5:19 PM CDT) Ventricular Rate EKG/Min 143 BPM [facility] QRS-Interval (MSEC) 96 ms [facility] QT-Interval (MSEC) 310 ms [facility] QTc 478 ms [facility] R [place] 36 degrees [facility] T [place] 205 degrees [facility] Diagnosis Atrial fibrillation with rapid ventricular response Minimal voltage criteria for LVH, may be normal variant ( [place] product ) ST & T wave abnormality, consider lateral ischemia Abnormal ECG When compared with ECG of 20-JAN-2023 07:41, No significant change was found Confirmed by EDWAR RODRIGUEZ M.D ([id number]) on 02/18/2023 8:23:15 PM [facility] 02/17/2023 5:19 PM CDT 02/18/2023 8:23 PM CDT us Franca Goldbergmintali DO ECG ORDERABLES Fin al Result [facility] documented in this encounter Visit Diagnoses Diagnosis [...] failure with preserved ejection fraction (HFpEF) (CMS/HCC) ([facility]) Take 1 tablet (40 mg total) by [...] Lena Mccoy 02/18/2023 02/18/2023 4 3:05 AM SENIOR DATA WAREHOUSE ARCHITECT documented as of this encounter Care Teams Sheet Rock Finisher Relationship Specialty Start Date End Date Cristian Ling MD [address] [place] [address] PCP - General 10/16/16 documented as of this encounter
--- OUTSIDE RECORDS SUMMARY | 2024-06-12 04:32 | XMS_ITS | Encounter Summary ---
Author Organization [facility] Address [address] [place] [address] Phone Care Team Providers Care Plastics Fabricator And Assembler Name Role Phone Cristian Ling MD Primary Care Prov ider Reason for Visit * Reason Onset Date Comments Post DCCV F/u 02/03/2023 Encounter Details Date Type Department Care Team (Late st Contact Info) Description 02/03/2023 Telephone [facility] Cardiology [address] [facility] Advanced Medicine 8th [place] [address] [place] [address] Sami Stafford MD [address] [facility] [address] [place], [place] [id number] Post DCCV F/u Social History Tobacco Use [...] on file Legal Sex Female 7:12 AM ADMINISTRATIVE SUPPORT TECHNICIAN Gender Identity Female 02/07/2021 4:33 PM [...] on filedocumented in this encounter Care Teams Plastics Fabricator And Assembler Relationship Specialty Start Date End Date Cristian Ling MD [address] [place] [address] PCP - General 10/16/16 documented as of this encounter
--- OUTSIDE RECORDS SUMMARY | 2024-06-12 04:32 | XMS_ITS | Encounter Summary ---
Author Organization [facility] Address [address] [place] [address] Phone Care Team Providers Care Pastry Assistant Name Role Phone Cristian Lign MD Primary Care Prov ider Belinda Quigley PLATE PREPARER Unavailable [phone] Encounter Details Date Type Department Care Team (Late st Contact Info) Description 01/10/2023 Telephone [facility] Cardiology [address] [facility] Advanced Medicine 8th [place] [address] [place] [address] Sami Stafford MD [address] [id number] Social History Tobacco Use Types Packs/Day Years [...] on file Legal Sex Female 7:12 AM TECHNOLOGY AUDITOR Gender Identity Female 02/07/2021 4:33 PM [...] PM Lena Mccoy 02/18/2023 02/18/2023 3:05 AM TECHNOLOGY AUDITOR C. difficile suspected 11/24/2023 11/25/202311/24 10:38 AM CDT COVID: Suspected 12/07/2023 12/07/2023 12/07/2023 5:54 PM CDT documented as of this encounter Care Teams Pastry Assistant Relationship Specialty Start Date End Date Cristian Ling MD [address] [place] [address] PCP - General 10/16/16 Belinda Quigley, SERG [address] [facility] ([facility]) Mailstop [phone] [place] [address] SHOP Outpatient Timber Sprinkler 12/04/23 12/30/23 documented as of this encounter
--- OUTSIDE RECORDS SUMMARY | 2024-06-12 04:32 | XMS_ITS | Encounter Summary ---
Author Organization [facility] Address [address] [facility] [address] [place] [address] Care Team Providers Care Stockkeeper Name Role Phone Cristian Ling MD Primary Care Prov ider Encounter Details Date Type Department Care Team (Late st Contact Info) Description 02/18/2023 Orders Only [facility] Cardiology [address] [place] [id number] Reddy Monahan MD [address] [facility] [place] [address] [place] [address] Social History Tobacco Use Types Packs/Day Years [...] on file Legal Sex Female 7:12 AM VICE PRESIDENT FOR INSTRUCTION Gender Identity Female 02/07/2021 4:33 PM [...] Lena Mccoy 02/18/2023 02/18/2023 4 3:05 AM VICE PRESIDENT FOR INSTRUCTION documented as of this encounter Care Teams Stockkeeper Relationship Specialty Start Date End Date Cristian Ling MD [address] [place] [address] PCP - General 10/16/16 documented as of this encounter
--- OUTSIDE RECORDS SUMMARY | 2024-06-12 04:32 | XMS_ITS | Encounter Summary ---
Author Organization [facility] Healthcare Address [address] [place] [address] Care Team Providers Care Clinical Psychologist Private Practice Name Role Phone Cristian Ling MD Primary Care Prov ider Belinda Quigley PV DESIGN ENGINEER Unavailable [phone] Encounter Details Date Type Department Care Team (Late st Contact Info) Description 02/15/2023 Orders Only [facility] Health Information Management [address] [place] [address] Scanning, Provider Social History Tobacco Use Types Packs/Day Years Used Date Smoking Tobacco: Never Passive Smoke Exposure: Current Smokeless Tobacco: Never [facility] Utilities Answer Date Recorded In the past 12 months has [facility] electric, gas, oil, or water [employer] threatened to shut off services in your [...] How often do you attend judaism or oriental orthodox serv ices? Never 12/04/2023 Do you belong [...] staff should administer the PHQ-9) 0 09/28/2020 [facility] - Occupational Stress Questionnaire Answer [...] any time in the past 12 m [facility], were you homeless or living in [...] on file Legal Sex Female 7:12 AM OR SCRUB TECH Gender Identity Female 02/07/2021 4:33 PM [...] Mccoy 02/18/2023 02/18/2023 03/03/202 4 3:05 AM OR SCRUB TECH C. difficile suspected 11/24/2023 11/25/202311/24 10:38 AM CDT COVID: Suspected 12/07/2023 12/07/2023 12/07/2023 5:54 PM CDT documented as of this encounter Care Teams Clinical Psychologist Private Practice Relationship Specialty Start Date End Date Cristian Ling MD [address] [place] [address] PCP - General 10/16/16 Belinda Quigley, SERG [address] [facility] ([facility]) Mailstop [phone] [place] [address] SHOP Outpatient Principal Data Architect 12/04/23 12/30/23 documented as of this encounter
--- OUTSIDE RECORDS SUMMARY | 2024-06-12 04:32 | XMS_ITS | Encounter Summary ---
Author Organization [facility] Address [address] [place] [address] Phone Care Team Providers Care Skiver Blockers Name Role Phone rCistian Ling MD Primary Care Prov ider Encounter Details Date Type Department Care Team (Late st Contact Info) Description 02/03/2023 Telephone [facility] Cardiology [address] [facility] Advanced [facility] 8th [place] [address] [place] [address] Sami Stafford MD [address] [facility] [address] [place], [place] [id number] Social History Tobacco Use Types Packs/Day Years [...] on file Legal Sex Female 7:12 AM FILLING AND PACKING SUPERVISOR Gender Identity Female 02/07/2021 4:33 PM CDT Sexual Orientation Straight 02/07/2021 4: 33 PM CDT documented as of this encounter Miscellaneous Notes * Telephone Encounter - Sheila Solomon RN - 02/04/2023 12:23 PM CDT Spoke with pt. Reports she is admitted at [facility] for a broken wrist. She also reports [...] if he thinks she should see an EXPLOSIVE SPECIALIST sooner than 06/11/23 f/u vs EP? And let her know. * Telephone Encounter - Sonia Gutierrez - 02/03/2023 11:20 AM CDT Rivera Patient currently in [facility] [place] for a broken wrist. Stated she is still having heart issues and would like a return call. She can be reached at [phone] or her son Storm is available at [phone]. documented in this encounter Plan of Treatment Not on file documented as of this encounter Visit Diagnoses Not on filedocumented in this encounter Care Teams Skiver Blockers Relationship Specialty Start Date End Date Cristian Ling MD [address] [place] [address] PCP - General 10/16/16 documented as of this encounter
--- OUTSIDE RECORDS SUMMARY | 2024-06-12 04:32 | XMS_ITS | Encounter Summary ---
Author Organization [facility] Address [address] [place] [address] Phone Care Team Providers Care Cadd Operator Name Role Phone Cristian Ling MD Primary Care Prov ider Reason for Visit * Reason Onset Date Comments Transfer to [facility] from [facility] 02/12/2023 Encounter Details Date Type Department Care Team (Late st Contact Info) Description 02/12/2023 Telephone [facility] Cardiology [address] [facility] Advanced Medicine 8th [place] [address] [place] [address] Sami Stafford MD [address] [facility] [address] [place], [place] [phone] Transfer to [facility] from OS Social History Tobacco Use Types [...] on file Legal Sex Female 7:12 AM IRISH MOSS OPERATOR Gender Identity Female 02/07/2021 4:33 PM [...] who said pt is now admitted at [facility] waiting for a bed at [facility]. He asked if DR. Stafford could [...] on filedocumented in this encounter Care Teams Cadd Operator Relationship Specialty Start Date End Date Cristian Ling MD [address] [place] [address] PCP - General 10/16/16 documented as of this encounter
--- OUTSIDE RECORDS SUMMARY | 2024-06-12 04:32 | XMS_ITS | Encounter Summary ---
Author Organization [facility] Healthcare Address [address] [place] [address] Care Team Providers Care Flour Broker Name Role Phone Cristian Ling MD Primary Care Prov ider Reason for Referral * Diagnostic Imaging (Routine) - Closed Specialty Diagnoses / Procedures Referred By Contac t Referred To Contact Diagnoses Primary osteoarthritis of right hip Procedures [place] Fluoro Guided Injection Hip Right Jamari Briseno MD [address] [facility] [address] [place] [address] Phone: tel: fax: [facility] Referral ID Status Reason Start Date Expiration Date Visits Re quested Visits Authorized [id number] Closed 11/25/2022 12/25/2023 1 1 Reason for Visit * Diagnostic Imaging (Routine) - Closed Specialty Diagnoses / Procedures Referred By Contac t Referred To Contact Diagnoses Primary osteoarthritis of right hip Procedures [place] Fluoro Guided Injection Hip Right Jamari Briseno MD [address] [facility] [address] [place] [address] Phone: tel: fax: [facility] Referral ID Status Reason Start Date Expiration Date Visits Re quested Visits Authorized [id number] Closed 11/25/2022 12/25/2023 1 1 Encounter Details Date Type Department Care Team (Latest Contact Info) Description 12/10/2022 1:09 PM CDT - 12/10/2022 11:59 PM CDT Hospital Encounter [facility] at [facility] [address] [place] [address] Jamari Briseno MD [address] [facility] [address] [place] [address] Primary osteoarthritis of right hip Discharge Disposition: [...] on file Legal Sex Female 7:12 AM DISPATCH COORDINATOR Gender Identity Female 02/07/2021 4:33 PM [...] those with type 1 diabetes. Check fasting (bicycle repair technician prior to first meal of the day) [...] concerns after hours, call our exchange at [phone]. For all other questions regarding the procedure, please call our office at [phone]. Pain Diary Please fill out the pain diary chart below and call or message via [employer] the medical provider whorequested the injection, Dr. [...] Right Fluoroscopically-Guided Hip Joint Injection [facility] Department of Orthopedic Surgery Division of [...] mg documented in this encounter Care Teams Flour Broker Relationship Specialty Start Date End Date Cristian Ling MD [address] [place] [address] PCP - General 10/16/16 documented as of this encounter
--- OUTSIDE RECORDS SUMMARY | 2024-06-12 04:32 | XMS_ITS | Encounter Summary ---
Author Organization [facility] Address [address] [place] [address] Phone Care Team Providers Care Risk Control Representative Name Role Phone Cristian Ling MD Primary Care Prov ider Reason for Visit * Reason Onset Date Comments Injections 12/10/2022 Pain diary Encounter Details Date Type Department Care Team (Late st Contact Info) Description 01/22/2023 Telephone [facility] Orthopaedic Surgery [address] [place] [address] Jamari Rodríguez MD [address] [facility] [address] [place], [place] [id number] Injections (Pain diary) Social History Tobacco Use [...] on file Legal Sex Female 7:12 AM PRIVATE CHEF Gender Identity Female 02/07/2021 4:33 PM CDT [...] on filedocumented in this encounter Care Teams Risk Control Representative Relationship Specialty Start Date End Date Cristian Ling MD [address] [place] [address] PCP - General 10/16/16 documented as of this encounter
--- OUTSIDE RECORDS SUMMARY | 2024-06-12 04:32 | XMS_ITS | Encounter Summary ---
Author Organization [facility] Healthcare Address [address] [place] [address] Care Team Providers Care Software Development Engineer Name Role Phone Cristian Ling MD Primary Care Prov ider Reason for Visit * Auth/Cert (Routine) Specialty Diagnoses / Procedures Referred By Contac t Referred To Contact Diagnoses Atrial fibrillation, unspecified type (HCC) Atrial fibrillation, unspecified type (HCC) [I48.91] Procedures ME CARDIOVERSION ELECTIVE ARRHYTHMIA EXTERNAL CARDIOVERSION 36005 Referral ID Status Reason Start Date Expiration Date Visits Re quested Visits Authorized [id number] 1 1 Encounter Details Date Type Department Care Team (Late st Contact Info) Description 01/20/2023 8:26 AM CDT Anesthesia Event [facility] [address] [place] [address] Estevan Troy MD [address] [facility] [address] [place] [address] Anesthesia Record Procedure Summary Procedure Name Responsible Anesthesiologist Anesthesia Start Time Anesthesia Stop Time CARDIOVERSION 25080 Estevan Troy MD 01/20/23 0826 01/20/23 0837 [...] file Legal Sex Female 7:12 AM SENIOR SHIPPING CLERK Gender Identity Female 02/07/2021 4:33 PM CDT Sexual Orientation Straight 02/07/2021 4: 33 PM CDT documented as of this encounter OR Notes * Anesthesia Postprocedure Evaluation - Baylee Granados CRNA - 01/20/2023 8:37 AM CDT Patient: Tiera Lobato Procedure Summary Date: 01/20/23 Room / Location: [facility] CARDIAC DESPATCH CLERK Anesthesia Start: 825 Anesthesia Stop: 836 Procedure: CARDIOVERSION 23539 Diagnosis: Atrial fibrillation, unspecified type (HCC) (Atrial [...] is a 77 y.o. 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 James ([place], [place]) TOTAL KNEE ARTHROPLASTY Right 2018 OB [...] Medication protocol when under care of a STENCIL CUTTER Planned anesthesia: MAC Induction: Induction: intravenous. Postoperative Plan: No plan for postoperative opioid use. No postoperative mechanical ventilation intended. Patient's planned disposition post procedure is Outpatient. No trial extubation planned. Informed Consent: Discussed plan with STENCIL CUTTER. Anesthesia plan and risks discussed with patient. [...] mL/hr documented in this encounter Care Teams Software Development Engineer Relationship Specialty Start Date End Date Cristian Ling MD [address] [place] [address] PCP - General 10/16/16 documented as of this encounter
--- OUTSIDE RECORDS SUMMARY | 2024-06-12 04:32 | XMS_ITS | Encounter Summary ---
Author Organization [facility] Address [address] [place] [address] Phone Care Team Providers Care Training Instructor Name Role Phone Cristian Ling MD Primary Care Prov ider Reason for Visit * Reason Onset Date Comments ROV 01/13/23 follow-up/DCCV Scheduling 01/13/2023 Encounter Details Date Type Department Care Team (Late st Contact Info) Description 01/13/2023 Telephone [facility] Cardiology [address] [facility] Medicine 8th [place] [address] [place] [address] Sami Stafford MD [address] [facility] [address] [place] [address] ROV 01/13/23 follow-up/DCCV Scheduling Social [...] on file Legal Sex Female 7:12 AM DRYWALL WORKER Gender Identity Female 02/07/2021 4:33 PM [...] her son Storm to provide directions to [facility]. Spoke with Storm to relay instructions. Plan [...] - 01/14/2023 3:04 PM CDTAddended by: SHEILA PAHCECO on: 01/14/2023 03:04 PM Modules accepted: Orders * Telephone Encounter - Sheila Pacheco RN - 01/14/2023 2:57 PM CDT Spoke with pt who is amenable to cardioversion on 01/20/23 with a 7 AM arrival. Educated pt on location of [facility] THE VICE PRESIDENT, need for transportation to and from procedure, [...] RN - 01/13/2023 1:19 PM CDT Per [facility] RN: First available cardioversion is 01/16/23 arrival [...] Date First Orde red Date CASE REQUEST BABBITT SPINNER 1 01/14/2023 documented in this encounter Care Teams Training Instructor Relationship Specialty Start Date End Date Cristian Ling MD [address] [place] [address] PCP - General 10/16/16 documented as of this encounter
--- OUTSIDE RECORDS SUMMARY | 2024-06-12 04:32 | XMS_ITS | Encounter Summary ---
Author Organization [facility] Address [address] [facility] [address] [place] [address] Care Team Providers Care Wrecking Mechanic Name Role Phone Cristian Ling MD Primary Care Prov ider Encounter Details Date Type Department Care Team (Late st Contact Info) Description 02/05/[address] [facility] Cardiology [address] [place] [phone] Reddy Monahan MD [address] [facility] [address] [place] [address] Social History Tobacco Use Types Packs/Day Years [...] on file Legal Sex Female 7:12 AM SHAREPOINT DEVELOPER Gender Identity Female 02/07/2021 4:33 PM [...] on filedocumented in this encounter Care Teams Wrecking Mechanic Relationship Specialty Start Date End Date Cristian Ling MD [address] [place] [address] PCP - General 10/16/16 documented as of this encounter
--- OUTSIDE RECORDS SUMMARY | 2024-06-12 04:32 | XMS_ITS | Encounter Summary ---
Author Organization [facility] Address [address] [place] [address] Phone Care Team Providers Care Signals Collection Technician Name Role Phone Cristian Ling MD Primary Care Prov ider Reason for Referral * Cardiology (Routine) - Closed Specialty Diagnoses / Procedures Referred By Contac t Referred To Contact Diagnoses Atrial fibrillation, unspecified type (HCC) Procedures ECG 12 lead Sami Stafford MD [address] [address] Phone: tel: fax: [facility] (All Locations) Referral ID Status Reason Start Date Expiration Date Visits Re quested Visits Authorized [id number] Closed 01/13/2023 02/12/2024 1 1 Reason for Visit * Consultation (Routine) - Closed Specialty Diagnoses / Procedures Referred By Contac t Referred To Contact Cardiology Diagnoses Chronic coronary artery disease Hx of CABG Primary hypertension Sami Stafford MD [address] [address] Phone: tel: fax: [facility] (All Locations) Referral ID Status Reason Start Date Expiration Date V isits Requested Visits Authorized [id number] Closed Specialty Services Required 11/25/2022 11/27/2023 12 12 Encounter Details Date Type Department Care Team (Late st Contact Info) Description 01/13/2023 10:30 AM CDT Office Visit [facility] Cardiology [address] [place] [address] Sami Stafford MD [address] [facility] [address] [place] [address] Acute on chronic heart failure with preserved [...] on file 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 BP Readings from Last [...] in I, aVL, V3-6, normal axis, normal DC, QRS and QT intervals. 30-day monitor 05/2022 [...] HCM with an echo. CAD with prior TN and CABG in 2012 ([facility], [facility]). She had a recent admission at [facility] 03/2022 with chest pain/shortness of [...] or concerns. Sincerely, Sami Stafford MD, MPHS, [facility] nitrocellulose maker Cardiovascular Division [facility] --- Please note: This note was generated in part using voice-recognition software and may contain manager education errors. documented in this encounter Plan of [...] Routine 01/13/2023 Paroxysmal atrial fibrillation with RVR ([facility]) documented in this encounter Results * (ABNORMAL) [...] sult Performing Organization Address [facility] Co de Phone Number [facility] [address] [place] [address] * (ABNORMAL) Pro B-type natriuretic peptide (01/16/2023 11:10 AM CDT) NT PROBNP 4,414(H) <450 pg/mL [facility] Blood 01/16/2023 11:1 0 AM CDT 01/16/2023 11:10 AM CDT us Sami Stafford MD LAB BLOOD ORDERABLES Final Re sult Performing Organization Address [facility] Co de Phone Number [facility] [address] [place] [address] * ECG 12 lead (01/13/2023) us Sami [...] documented as of this encounter Care Teams Signals Collection Technician Relationship Specialty Start Date End Date Cristian Ling MD [address] [place] [address] PCP - General 10/16/16 documented as of this encounter
--- OUTSIDE RECORDS SUMMARY | 2024-06-12 04:32 | XMS_ITS | Encounter Summary ---
Author Organization [facility] Address [address] [place] [address] Phone Care Team Providers Care Hearing And Speech Assistant Name Role Phone Cristian Ling MD Primary Care Prov ider Reason for Visit * Reason Onset Date Comments update on VS and weight 01/14/2023 Encounter Details Date Type Department Care Team (Late st Contact Info) Description 01/14/2023 Telephone [facility] Cardiology [address] [facility] 8th [place] [address] [place] [address] Sami Stafford MD [address] [facility] [address] [place], [place] [id number] update on VS and weight Social History [...] file 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 She can be reached at [phone]. documented in this encounter Plan of Treatment [...] documented as of this encounter Care Teams Hearing And Speech Assistant Relationship Specialty Start Date End Date Cristian Ling MD [address] [place] [address] PCP - General 10/16/16 documented as of this encounter
--- OUTSIDE RECORDS SUMMARY | 2024-06-12 04:32 | XMS_ITS | Encounter Summary ---
Author Organization [facility] Address [address] [place] [address] Phone Care Team Providers Care Health Director Name Role Phone Cristian Ling MD Primary Care Prov ider Encounter Details Date Type Department Care Team (Late st Contact Info) Description 12/30/2022 Telephone [facility] Cardiology [address] 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 * Telephone Encounter - Viki [...] plan on having labs drawn [facility] at [facility] and also may try to obtain an [...] lab work, would like it sent to [facility]. * Telephone Encounter - Yara Espinosa - [...] BLOOD ORDERABLES Final Re sult [facility] [address] [facility] [place] [address] * (ABNORMAL) Basic metabolic panel (01/07/2023 11:06 [...] MD LAB BLOOD ORDERABLES Final Re sult [facility] [facility] [address] [place] [address] documented in this encounter Visit Diagnoses Diagnosis [...] documented as of this encounter Care Teams Health Director Relationship Specialty Start Date End Date Cristian Ling MD [address] [place] [address] PCP - General 10/16/16 documented as of this encounter
--- OUTSIDE RECORDS SUMMARY | 2024-06-12 04:33 | XMS_ITS | Encounter Summary ---
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
--- OUTSIDE RECORDS SUMMARY | 2024-06-12 04:33 | XMS_ITS | Encounter Summary ---
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
--- OUTSIDE RECORDS SUMMARY | 2024-06-12 04:33 | XMS_ITS | Encounter Summary ---
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 [address] If you have any financial questions please call [phone] If you need to cancel or reschedule your appointment please call [phone] Ask them the covid screening questions Have [...] connect the patient with Beba Busch, the chest pain coordinator at [phone]. If a direct number is requested by the patient please give them [phone]. documented in this encounter Plan of Treatment Not on file documented as of this encounter Visit Diagnoses Not on filedocumented in this encounter Care Teams Welder Manufacture Relationship Specialty Start Date End Date Cristian Ling MD [address] [place] [address] PCP - General 10/16/16 documented as of this encounter
--- OUTSIDE RECORDS SUMMARY | 2024-06-12 04:33 | XMS_ITS | Encounter Summary ---
Author Organization [facility] Address [address] [place] [address] Care Team Providers Care Edger Runner Name Role Phone Cristian Ling MD Primary Care Prov ider Encounter Details Date Type Department Care Team (Latest Contact Info) Description 09/06/2022 1:56 PM CDT - 09/06/2022 11:59 PM CDT Hospital Encounter [facility] Advanced Medicine [facility] Advanced Medicine ([facility]) [address] [place] [phone] Discharge Disposition: Discharge to home or self [...] on file Legal Sex Female 7:12 AM PRECISION MARKET INSIGHTS Gender Identity Female 02/07/2021 4:33 PM CDT [...] on filedocumented in this encounter Care Teams Edger Runner Relationship Specialty Start Date End Date Cristian Ling MD [address] [place] [address] PCP - General 10/16/16 documented as of this encounter
--- OUTSIDE RECORDS SUMMARY | 2024-06-12 04:33 | XMS_ITS | Encounter Summary ---
Author Organization [facility] Address [address] [place] [address] Phone Care Team Providers Care Dispensing Optician Name Role Phone Cristian Ling MD Primary Care Prov ider Reason for Visit * Oncology (Routine) - Authorized Specialty Diagnoses / Procedures Referred By Contac t Referred To Contact Hematology Diagnoses Anemia, unspecified type Sami Stafford MD [address] [facility] [address] [place] [address] Phone: tel: fax: Katja Joe MD Phone: tel: fax: Referral ID Status Reason Start Date Expiration Date Visits Requested Visits Authorized [id number] Authorized Specialty Services Required 07/22/2022 09/29/2024 26 26 Encounter Details Date Type Department Care Team (Late st Contact Info) Description 10/18/2022 10:15 AM CDT Office Visit [facility] Hematology [address] [facility] 7th [place] [address] [place] [address] Katja Joe MD [address] [place] [address] Anemia, unspecified type Social History Tobacco Use [...] on file Legal Sex Female 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 Saxman T1 mapping demonstrates mildly increased signal throughout [...] CDT) WBC 5.1 3.8 - 9.9 K/cumm [facility] Hgb 10.0(L) 11.9 - 15.5 g/dL [facility] Hct 31.1(L) 35.6 - 45.5 % [facility] Plt 178 150 - 400 K/cumm [facility] MPV 12.0 9.1 - 12.3 fL [facility] RBC 3.30(L) 3.90 - 5.20 M/cumm [facility] MCV 94.2 81.3 - 96.4 fL [facility] MCH 30.3 27.1 - 33.3 pg [facility] MCHC 32.2(L) 32.3 - 35.7 g/dL [facility] RDW CV 13.2 11.1 - 14.9 % [facility] RDW SD 45.7 35.7 - 48.1 fL [facility] NRBC abs 0.00 0.00 - 0.01 K/cumm [facility] Blood 11/27/2022 1:20 PM CDT 11/27/2022 1:28 PM CDT us Katja Linares MD LAB BLOOD ORDERABLES Caitlyn dominguez Result [facility] Department [place] [address] * (ABNORMAL) Immunoglobulin free light chains (10/18/2022 11:36 AM CDT) Pathologist [facility] [place]/Lambda ratio 1.69(H) 0.26 - 1.65 [facility] [place] free light chain 3.53(H) 0.33 - 1.94 mg/dL [facility] Comment: Interpretive Data The Kana Ig [place] FLC assay procedure was used. Results from different manufacturers or methods may not be comparable. Serial testing should be performed using the same method. Lambda free light chain 2.09 0.57 - 2.63 mg/dL [facility] Comment: Interpretive Data The Kana Ig Lambda FLC assay procedure was used. Results from different manufacturers or methods may not be comparable. Serial testing should be performed using the same method. Blood 10/18/2022 11:3 6 AM CDT 10/18/2022 11:55 AM CDT Katja Linares MD LAB BLOOD ORDERABLES Caitlyn l Result Performing Organization Address [facility] Co de Phone Number [facility] Department [place] [address] * (ABNORMAL) Beta 2 microglobulin, serum (10/18/2022 11:28 AM CDT) Beta 2 Microglobulin, Serum 4.00(H) 1.00 - 2.50 mg/L [facility] Comment: Interpretive Data The Kana Beta-2 microglobulin assay procedure was used. Results from different manufacturers or methods may not be comparable. Serial testing should be performed using the same method. Blood 10/18/2022 11:2 8 AM CDT 10/18/2022 11:55 AM CDT Katja Linares MD LAB BLOOD ORDERABLES Caitlyn l Result Performing Organization Address [facility] de Phone Number [facility] [place] [address] * IgA (10/18/2022 11:28 AM CDT) Immunoglobulin A 212.0 70.0 - 400.0 mg/dL [facility] Blood 10/18/2022 11:2 8 AM CDT 10/18/2022 11:55 AM CDT Katja Linares MD LAB BLOOD ORDERABLES Caitlyn l Result Performing Organization Address City/[facility] Co de Phone Number [facility] [place] [address] * IgM (10/18/2022 11:28 AM CDT) Immunoglobulin M 101.0 40.0 - 230.0 mg/dL [facility] Blood 10/18/2022 11:2 8 AM CDT 10/18/2022 11:55 AM CDT Katja Linares MD LAB BLOOD ORDERABLES Caitlyn l Result Performing Organization Address City/[facility]/ZIP Co de Phone Number [facility] Department [place] [address] * IgG (10/18/2022 11:28 AM CDT) [facility] Immunoglobulin G 771.0 700.0 - 1,600.0 mg/dL [facility] Blood 10/18/2022 11:2 8 AM CDT 10/18/2022 11:55 AM CDT Katja Linares MD LAB BLOOD ORDERABLES Caitlyn l Result Performing Organization Address City/[facility] Co de Phone Number [facility] [place] [address] * Protein electrophoresis with reflex, serum (10/18/2022 11:28 AM CDT) [facility] Protein, sr 6.5 6.2 - 8.2 g/dL [facility] Albumin 3.9 3.2 - 5.0 g/dL [facility] Alpha-1 globulin 0.3 0.2 - 0.4 g/dL [facility] Alpha-2 globulin 0.8 0.5 - 1.0 g/dL [facility] Beta-1 globulin 0.4 0.3 - 0.6 g/dL [facility] Beta-2 globulin 0.3 0.2 - 0.6 g/dL [facility] Gamma globulin 0.7 0.5 - 1.7 g/dL [facility] SPEP interp Please see comment [facility] Comment: No apparent monoclonal peak Reviewed and signed by Aguila Redding MD, PhD 10/21/2022 Blood 10/18/2022 11:2 8 AM CDT 10/18/2022 11:53 AM CDT Katja Linares MD LAB BLOOD ORDERABLES Caitlyn l Result Performing Organization Address [facility] [place] [address] * (ABNORMAL) Erythropoietin (10/18/2022 11:28 AM CDT) Pathologist [facility] Erythropoietin 20.7(H) 2.6 - 18.5 mIUnits/m L [facility] Comment: Test Performed by: [facility] [address] [place] [address] Race Starter: Leno Nogueira M.D. Ph.D.; CLIA# [id number] Blood 10/18/2022 11:2 8 AM CDT 10/18/2022 12:11 PM CDT Katja Linares MD LAB BLOOD ORDERABLES Caitlyn l Result Performing Organization Address [facility] [place] [address] * Methylmalonic acid, serum (10/18/2022 11:28 AM CDT) [facility] MMA 0.28 <=0.40 nmol/mL [facility] Comment: ADDITIONAL INFORMATION This test was developed and its performance characteristics determined by [facility] in a manner consistent with CLIA requirements. This test has not been cleared or approved by the U.S. Food and Drug Administration. Test Performed by: [facility] [address] [place] [address] Race Starter: Leno Nogueira M.D. Ph.D.; CLIA# [id number] Blood 10/18/2022 11:2 8 AM CDT 10/18/2022 12:11 PM CDT us Katja Linares MD LAB BLOOD ORDERABLES Caitlyn l Result Performing Organization Address City/[facility] Co de Phone Number [facility] [place] [address] * (ABNORMAL) Vitamin B12 (10/18/2022 11:28 AM CDT) Vitamin B12 1,302(H) 230 - 1,250 pg/mL [facility] Blood 10/18/2022 11:2 8 AM CDT 10/18/2022 11:55 AM CDT Katja Linares MD LAB BLOOD ORDERABLES Caitlyn l Result Performing Organization Address [facility] Co de Phone Number [facility] Department [place] [address] * Folate (10/18/2022 11:28 AM CDT) Folic acid 15.5 >=5.0 ng/mL [facility] Blood 10/18/2022 11:2 8 AM CDT 10/18/2022 11:55 AM CDT Katja Linares MD LAB BLOOD ORDERABLES Caitlyn l Result Performing Organization Address City/[facility] Co de Phone Number [facility] [place] [address] * Ferritin (10/18/2022 11:28 AM CDT) Ferritin 48 13 - 150 ng/mL [facility] Blood 10/18/2022 11:2 8 AM CDT 10/18/2022 11:55 AM CDT Katja Linares MD LAB BLOOD ORDERABLES Caitlyn l Result Performing Organization Address City/[facility] Co de Phone Number [facility] [place] [address] * Iron profile w/ IBC (10/18/2022 11:28 AM CDT) Iron 59 35 - 145 mcg/dL [facility] TIBC 288 250 - 400 mcg/dL [facility] Transferrin saturation 20 20 - 50 % [facility] Blood 10/18/2022 11:2 8 AM CDT 10/18/2022 11:55 AM CDT Katja Linares MD LAB BLOOD ORDERABLES Caitlyn l Result Performing Organization Address [facility] Co de Phone Number [facility] [place] [address] * Haptoglobin (10/18/2022 11:28 AM CDT) Pathologist [facility] Haptoglobin 165.0 30.0 - 200.0 mg/dL [facility] Blood 10/18/2022 11:2 8 AM CDT 10/18/2022 11:55 AM CDT Katja Linares MD LAB BLOOD ORDERABLES Caitlyn l Result Performing Organization Address [facility] Co de Phone Number [facility] [place] [address] * Reticulocyte Count (10/18/2022 11:28 AM CDT) Retics, absolute 0.028 0.020 - 0.087 M/cumm [facility] Comment:Testing performed by : [facility], [address] [place] [phone] Retics 0.85 0.50 - 1.80 % [facility] Comment:Testing performed by : [facility], [address] [place] [phone] Blood 10/18/2022 11:2 8 AM CDT 10/18/2022 11:38 AM CDT Katja Linares MD LAB BLOOD ORDERABLES Caitlyn l Result [facility] [place] [address] * Lactate dehydrogenase (LD) (10/18/2022 11:28 AM CDT) Lactate dehydrogenase (LDH) 178 100 - 250 Units/L [facility] Comment:Testing performed by : [facility], [address] [place] [phone] Blood 10/18/2022 11:2 8 AM CDT 10/18/2022 11:38 AM CDT Katja Linares MD LAB BLOOD ORDERABLES Caitlyn l Result Performing Organization Address City/[facility]/ZIP Co de Phone Number [facility] [place] [address] * (ABNORMAL) Comprehensive metabolic panel (10/18/2022 11:28 AM CDT) Sodium 140 135 - 145 mmol/L [facility] Comment:Testing performed by : [facility], [address] [place] [phone] Potassium, pl 4.5 3.3 - 4.9 mmol/L [facility] Comment:Testing performed by : [facility], [address] [place] [phone] Chloride 105 97 - 110 mmol/L [facility] Comment:Testing performed by : [facility], [address] [place] [phone] CO2 29 22 - 32 mmol/L [facility] Comment:Testing performed by : [facility], [address] [place] [phone] Anion gap 6 2 - 15 mmol/L [facility] Comment:Testing performed by : [facility], [address] [place] [phone] BUN 21 8 - 25 mg/dL [facility] Comment:Testing performed by : [facility], [address] [place] [phone] Creatinine 1.15(H) 0.60 - 1.10 mg/dL [facility] Comment:Testing performed by : [facility], [address] [place] [phone] Glucose 83 70 - 199 mg/dL [facility] [...] was last revised 2022. Testing performed by: [facility], [address] [place] [phone] Calcium 10.0 8.5 - 10.3 mg/dL [facility] Comment:Testing performed by : [address] [phone] Bilirubin, total 0.4 0.1 - 1.2 mg/dL [facility] Comment:Testing performed by : [facility], [address] [place] [phone] Protein, pl 6.9 6.5 - 8.5 g/dL [facility] Comment:Testing performed by : [address] [phone] Albumin 4.1 3.5 - 5.0 g/dL [facility] Comment:Testing performed by : [address] [phone] Alk phos 81 40 - 130 Units/L [facility] Comment:Testing performed by : [address] [phone] ALT 15 7 - 45 Units/L [facility] Comment:Testing performed by : [facility], [address] [place] [phone] AST 18 10 - 45 Units/L [facility] Comment:Testing performed by : [facility], [address] [place] [phone] Blood 10/18/2022 11:2 8 AM CDT 10/18/2022 11:38 AM CDT Narrative [facility] - 10/18/2022 11:57 AM CDT Has the patient fasted?->No us Katja Linares MD LAB BLOOD ORDERABLES Caitlyn dominguez Result [facility] Department [place] [address] * (ABNORMAL) CBC with auto differential (10/18/2022 11:28 AM CDT) WBC 4.9 3.8 - 9.8 K/cumm [facility] Comment:Testing performed by : [facility], [address] [place] [phone] Hgb 10.1(L) 12.1 - 15.1 g/dL [facility] Comment:Testing performed by : [facility], [address] [place] [phone] Hct 29.9(L) 36.1 - 44.3 % [facility] Comment:Testing performed by : [facility], [address] [place] [phone] Plt 186 140 - 440 K/cumm [facility] Comment:Testing performed by : [facility], [address] [place] [phone] MPV 9.6 6.8 - 10.4 fL [facility] Comment:Testing performed by : [facility], [address] [place] [phone] RBC 3.29(L) 3.90 - 5.00 M/cumm [facility] Comment:Testing performed by : [facility], [address] [place] [phone] MCV 91.0 80.0 - 97.6 fL [facility] Comment:Testing performed by : [facility], [address] [place] [phone] MCH 30.9 26.7 - 33.7 pg [facility] Comment:Testing performed by : [facility], [address] [place] [phone] MCHC 33.9 32.7 - 35.5 g/dL [facility] Comment:Testing performed by : [facility], [address] [place] [phone] RDW CV 13.3 11.8 - 14.6 % [facility] Comment:Testing performed by : [facility], [address] [place] [phone] NRBC abs 0.00 0.00 - 0.01 K/cumm [facility] Comment:Testing performed by : [facility], [address] [place] [phone] Blood 10/18/2022 11:2 8 AM CDT 10/18/2022 11:38 AM CDT us Katja Linares MD LAB BLOOD ORDERABLES Caitlyn l Result [facility] Department [place] [address] documented in this encounter Visit Diagnoses Diagnosis Anemia, unspecified type Anemia, unspecified type documented in this encounter Orders Outpatient Referral Count Last Ordered Date Fir st Ordered Date AMB REFERRAL TO HEMATOLOGY 1 10/18/2022 documented in this encounter Care Teams Dispensing Optician Relationship Specialty Start Date End Date Cristian Ling MD [address] [place] [address] PCP - General 10/16/16 documented as of this encounter
--- OUTSIDE RECORDS SUMMARY | 2024-06-12 04:33 | XMS_ITS | Encounter Summary ---
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
--- OUTSIDE RECORDS SUMMARY | 2024-06-12 04:33 | XMS_ITS | Encounter Summary ---
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
--- OUTSIDE RECORDS SUMMARY | 2024-06-12 04:33 | XMS_ITS | Encounter Summary ---
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 ??There will be no report generated by a [facility] Radiologist. Narrative [facility] - 04/15/2022 8:41 AM CDT EXAMINATION: ??Images For Reference Purposes Only us Sami Stafford MD IMG US PROCEDURES Final Resul t [facility] documented in this encounter Visit Diagnoses Not on filedocumented in this encounter Care Teams Soda Jerker Relationship Specialty Start Date End Date Cristian Ling MD [address] [place] [address] PCP - General 10/16/16 documented as of this encounter
--- OUTSIDE RECORDS SUMMARY | 2024-06-12 04:33 | XMS_ITS | Encounter Summary ---
Author Organization [facility] Healthcare Address [address] [place] [address] Care Team Providers Care Radiologist Chief Of Breast Imaging Name Role Phone Cristian Ling MD Primary Care Prov ider Encounter Details Date Type Department Care Team (Latest Contact Info) Description 04/15/2022 8:49 AM CDT - 04/15/2022 11:59 PM CDT Hospital Encounter [facility] [address] [place] [phone] Discharge Disposition: Discharge to home or self [...] on file Legal Sex Female 7:12 AM STAFFING ACCOUNT MANAGER Gender Identity Female 02/07/2021 4:33 PM [...] only and have not been reviewed by [facility] Radiology. ??There will be no report generated by a [facility] Radiologist. Narrative [facility] - 04/15/2022 8:49 AM CDT EXAMINATION: ??Images For Reference Purposes Only us Sami Stafford MD IMG US PROCEDURES Final Resul t [facility] documented in this encounter Visit Diagnoses Not on filedocumented in this encounter Care Teams Radiologist Chief Of Breast Imaging Relationship Specialty Start Date End Date Cristian Ling MD [address] [place] [address] PCP - General 10/16/16 documented as of this encounter
--- OUTSIDE RECORDS SUMMARY | 2024-06-12 04:33 | XMS_ITS | Encounter Summary ---
Author Organization [facility] Address [address] [place] [address] Phone Care Team Providers Care School Laboratory Technician Name Role Phone Cristian Ling MD Primary Care Prov ider Reason for Referral * MRI/CAT/PET Scan (Routine) - Closed Specialty Diagnoses / Procedures Referred By Paula t Referred To Contact Radiology Diagnoses Hypertrophic cardiomyopathy (CMS/HCC) (HCC) Palpitations Procedures MRI Cardiac M&F WO Contrast Cisco Bender MD [address] [address] Phone: tel: fax: [address] [address] Referral ID Status Reason Start Date Expiration Date Visits Re quested Visits Authorized [id number] Closed 05/01/2022 05/31/2023 1 1 TECH * Cardiology (Routine) - Closed Specialty Diagnoses / Procedures Referred By Contdeepali t Referred To Contact Diagnoses Palpitations Procedures MCT Mobile Cardiac Telemetry Event Monitor Cisco Bender MD [address] [address] Phone: tel: fax: [address] [phone] Referral ID Status Reason Start Date Expiration Date Visits Re quested Visits Authorized [id number] Closed 05/01/2022 05/31/2023 1 1 TECH Reason for Visit * Consultation (Routine) - Closed Specialty Diagnoses / Procedures Referred By Contac t Referred To Contact Cardiology Diagnoses Chronic coronary artery disease Hx of CABG Primary hypertension Cisco Bender MD [address] [facility] [address] [place] [address] Phone: tel: fax: [facility] (All Locations) Referral ID Status Reason Start Date Expiration Date V isits Requested Visits Authorized [id number] Closed Specialty Services Required 11/25/2022 11/27/2023 12 12 Encounter Details Date Type Department Care Team (Late st Contact Info) Description 05/01/2022 10:45 AM QA TECH Office Visit [facility] Cardiology [address] [place] [address] Medicine 8th [place] [address] [place] [address] Cisco Bender MD [address] [address] Chronic coronary artery disease (Primary Dx); Hx [...] on file Legal Sex Female 7:12 AM QA TECH Gender Identity Female 02/07/2021 4:33 PM CDT Sexual Orientation Straight 02/07/2021 4: 33 PM CDT documented as of this encounter Last Filed Vital Signs Vital Sign Reading Time Taken Comments Blood Pressure 116/72 05/01/2022 11:23 AM QA TECH Pulse 60 05/01/2022 11:23 AM QA TECH Temperature - - Respiratory Rate - - Oxygen Saturation 97% 05/01/2022 11:23 AM QA TECH Inhaled Oxygen Concentration - - Weight 79.8 kg (176 lb) 05/01/2022 11:23 AM QA TECH Height - - Body Mass Index 31.18 09/28/2020 1:48 PM CDT documented in this encounter Patient Instructions * Patient Instructions* Cisco Bender MD - 05/01/2022 10:45 AM QA TECH Stop ticagrelor (Brillinta). Substitute clopidogrel 75 mg once daily. Let me know if you have any bleeding issues. Let me know if you have more chest pain. Cardiac MRI to evaluate for apical hypertrophic cardiomyopathy. [email or web address] 30-day monitor to screen for arrhythmias. Check your blood pressure when you feel lightheaded. Monitor your blood pressure 2 times daily (morning before medications, evening before dinner) for 1week, then send/call with the readings. Date: AM PM TECH TECH TECH TECH documented in this encounter Ordered Prescriptions Prescription [...] Department of Medicine Cisco Bender MD, MPHS, [facility] Cardiovascular Division laborer tin can Patient Name: Tiera Lobato : 1945 Date [...] with her son. She was admitted to [facility] in March for chest pain and [...] in I, aVL, V3-6, normal axis, normal ND, QRS and QT intervals. Assessment/Plan: Tiera Lobato is a 77 y.o. female with the followin. CAD with prior WI and CABG in 2012 (LAWSON-LAD, SVG-OM). She had a recent admission at [facility] 03/2022 with chest pain/shortness of breath. [...] concerns. Sincerely, Cisco Bender MD, MPHS, FACC laborer tin can Cardiovascular Division [facility] in [place] [facility] --- Please note: This note was generated in part using voice-recognition software and may contain car sales associate errors. TECH documented in this encounter Plan of Treatment Not on file documented as of this encounter Results * MRI Cardiac M&F WO Contrast (07/25/2022 10:54 AM QA TECH) Anatomical Region Laterality Modality Body N/A Magnetic Resonan ce 07/25/2022 1:33 PM QA TECH Impressions 07/26/2022 8:44 AM QA TECH 1. ??Findings consistent with apical variant hypertrophic [...] Phil Lewis M.D. Narrative 07/26/2022 8:44 AM QA TECH EXAMINATION: ??MRI CARDIAC M/T/F WO CONTRAST HISTORY: [...] no aortic stenosis and no aortic regurgitation. [place] T1 mapping demonstrates mildly increased signal throughout [...] no aortic stenosis and no aortic regurgitation. [place] T1 mapping demonstrates mildly increased signal throughout [...] Cardiac Telemetry Event Monitor (05/01/2022 3:51 PM QA TECH) Anatomical Region Laterality Modality Electrocardiogra phy 05/01/2022 12:3 0 PM QA TECH Narrative 06/05/2022 10:11 AM QA TECH Patient name: Tiera Lobato Date of test: 05/01/2022 Type of Test: Event Monitor (MCT) [facility] #: [id number] ?Location: [facility] Heart and Vascular : 1945 ??Age: 77 ??Sex: F Ref Physician(s): CISCO BENDER MD Interpreted by: Chris Clifford MD Implisit Tech: CIARA Rao Diagnosis: Monitoring Service: Preventice Reason for Test: R00.2: Palpitations Monitor Used: Body Guardian Heart ([facility]) ?? Enrollment Period: May 01 - May 30, 2022 [employer] comments: The device was applied by the instrument room technician on this note. The patient was [...] The full scanned/data report is available in YR.MRKT. labeled MONITOR STRIPS PDF . This study [...] test: 05/01/2022 Type of Test: Event Monitor ([facility]) Hospital #: 0 Location: [facility] Heart and Vascular : 1945 Age: 77 Sex: F Ref Physician(s): CISCO BENDER MD Interpreted by: Chris Clifford MD Implisit Tech: CIARA Rao Diagnosis: Monitoring Service: Preventice Reason for Test: R00.2: Palpitations Monitor Used: Body [facility] ([facility]) Enrollment Period: May 01 - May 30, 2022 [employer] comments: The device was applied by the instrument room technician on this note. The patient was [...] The full scanned/data report is available in YR.MRKT. labeled MONITOR STRIPS PDF . This study [...] (ABNORMAL) Basic metabolic panel (05/01/2022 12:58 PM QA TECH) Sodium 140 135 - 145 mmol/L [facility] Potassium, pl 4.2 3.3 - 4.9 mmol/L [facility] Chloride 105 97 - 110 mmol/L [facility] CO2 27 22 - 32 mmol/L [facility] Anion gap 8 2 - 15 mmol/L [facility] BUN 17 8 - 25 mg/dL [facility] Creatinine 1.25(H) 0.60 - 1.10 mg/dL [facility] Glucose 87 70 - 199 mg/dL [facility] Comment: Interpretive Data Fasting glucose >/= [...] 2017. Calcium 10.7(H) 8.5 - 10.3 mg/dL [facility] Blood 05/01/2022 12:5 8 PM QA TECH 05/01/2022 1:13 PM QA TECH us Cisco Bender MD LAB BLOOD ORDERABLES Final Re sult [facility] Department [place] [address] documented in this encounter Visit Diagnoses Diagnosis Chronic coronary artery disease- Primary Coronary atherosclerosis of unspecified type of vessel, kaibab or graft Hx of CABG Postsurgical aortocoronary bypass status Primary hypertension Unspecified essential hypertension Hypertrophic cardiomyopathy (CMS/HCC) (HCC) Other primary cardiomyopathies Palpitations Palpitations Hypertrophic cardiomyopathy (CMS/HCC) (HCC) Other primary cardiomyopathies Palpitations documented in this encounter Orders Outpatient Referral Count Last Ordered Date Fir st Ordered Date AMB REFERRAL TO CARDIOLOGY 1 05/01/2022 documented in this encounter Care Teams School Laboratory Technician Relationship Specialty Start Date End Date Cristian Ling MD [address] [place] [address] PCP - General 10/16/16 documented as of this encounter
--- OUTSIDE RECORDS SUMMARY | 2024-06-12 04:33 | XMS_ITS | Encounter Summary ---
Author Organization [facility] Address [address] [place] [address] Phone Care Team Providers Care Machine Try Out Setter Name Role Phone Cristian Ling MD Primary Care Prov ider Encounter Details Date Type Department Care Team (Late st Contact Info) Description 08/02/2022 Telephone [facility] Orthopaedic Surgery [address] [place] [address] Catherine Campbell CPhT Social History [...] on file Legal Sex Female 7:12 AM FLIGHT NURSE Gender Identity Female 02/07/2021 4:33 PM CDT Sexual Orientation Straight 02/07/2021 4: 33 PM CDT documented as of this encounter Miscellaneous Notes * Telephone Encounter - Vidya Grace LPN - 08/06/2022 5:14 PM FLIGHT NURSE Returned call to pt to schedule right hip injection. HT NURSE * Telephone Encounter - Jamari Rodríguez MD - 08/05/2022 6:07 AM FLIGHT NURSE OK to schedule repeat injection a minimum of 3 months from previous injection in May. HT NURSE * Telephone Encounter - Catherine Campbell CPhT - 08/02/2022 10:58 AM FLIGHT NURSE Pt requesting a WUPR FL GUIDED INJ HIP RT HT NURSE documented in this encounter Plan of Treatment Not on file documented as of this encounter Visit Diagnoses Not on filedocumented in this encounter Care Teams Machine Try Out Setter Relationship Specialty Start Date End Date Cristian Ling MD [address] [place] [address] PCP - General 10/16/16 documented as of this encounter
--- OUTSIDE RECORDS SUMMARY | 2024-06-12 04:33 | XMS_ITS | Encounter Summary ---
Author Organization [facility] Address [address] [place] [address] Phone Care Team Providers Care Emergency Medical Dispatcher Name Role Phone Cristian Ling MD Primary Care Prov ider Reason for Referral * Diagnostic Imaging (Routine) - Closed Specialty Diagnoses / Procedures Referred By Contac t Referred To Contact Diagnoses Right hip pain Primary osteoarthritis of right hip Procedures FL Fluoro Guided Injection Hip Right Jamari Rodríguez MD [address] [facility] [place] [address] Phone: tel: fax: [facility] [address] [place] [address] Referral ID Status Reason Start Date Expiration Date Visits Re quested Visits Authorized [id number] Closed 03/26/2022 04/25/2023 1 1 Reason for Visit * Reason Comments Pain Pain Pain * Consultation (Routine) - Closed Specialty Diagnoses / Procedures Referred By Contact Referred To Contact Physical Medicine and Rehabilitation Diagnoses Right hip pain Maxx Pratt MD Phone: tel: fax: Jamari Rodríguez MD [address] [facility] [address] [address] [place] [address] Phone: tel: fax: Referral ID Status Reason Start Date Expiration Date V isits Requested Visits Authorized [id number] Closed Specialty Services Required 11/28/2021 12/28/2022 1 1 Encounter Details Date Type Department Care Team (Latest Contact Info) Description 03/26/2022 9:30 AM CDT Office Visit [facility] Orthopaedic Surgery [address] [facility] 2nd [address] [place] [phone] Jamari Rodríguez MD [address] [facility] [address] [place] [address] Right hip pain (Primary Dx); Primary osteoarthritis [...] on file Legal Sex Female 7:12 AM ANALYTICAL CHEMIST Gender Identity Female 02/07/2021 4:33 PM CDT [...] not helpful. She consulted with Dr. Fidel griffni who referred her to our service for further evaluation and treatmentguidance. PAST MEDICAL HISTORY: She has a past medical history of Acid reflux, Heart murmur, High cholesterol, History of blood clots (), History of ID (myocardial infarction) (2012), History of vertebral fracture [...] motor deficits affecting lower extremities. She transfers ctt-[id number]-[id number] with deliberation. She exhibits slow start-up with [...] this encounter. This note was dictated using [employer] software. This note was not read in detail; therefore, variances and inaccuracies may occur. Jamari Del Rio MD Airplane Captain Physical Medicine and Rehabilitation [facility] Orthopedics documented in this encounter Plan of Treatment Not on file documented as of this encounter Results * FL Fluoro Guided Injection Hip Right (05/16/2022 2:31 PM ANALYTICAL CHEMIST) Narrative RAD_PACS[facility] - 05/16/2022 2:31 PM ANALYTICAL CHEMIST The images from this study are not [...] 03/16 documented in this encounter Care Teams Emergency Medical Dispatcher Relationship Specialty Start Date End Date Cristian Ling MD [address] [place] [address] PCP - General 10/16/16 documented as of this encounter
--- OUTSIDE RECORDS SUMMARY | 2024-06-12 04:33 | XMS_ITS | Encounter Summary ---
Author Organization [facility] Address [address] [place] [address] Phone Care Team Providers Care Sales Team Member Name Role Phone Cristian Ling MD Primary Care Prov ider Encounter Details Date Type Department Care Team (Late st Contact Info) Description 04/03/2022 Telephone [facility] Cardiology [address] [facility] 8th [place] [address] [place] [address] Sami Stafford MD [address] [facility] [address] [place], [place] [id number] Social History Tobacco Use Types Packs/Day Years [...] on file Legal Sex Female 7:12 AM ONLINE RETAILER Gender Identity Female 02/07/2021 4:33 PM CDT [...] on filedocumented in this encounter Care Teams Sales Team Member Relationship Specialty Start Date End Date Cristian Ling MD 1 [place] [address] PCP - General 10/16/16 documented as of this encounter
--- OUTSIDE RECORDS SUMMARY | 2024-06-12 04:33 | XMS_ITS | Encounter Summary ---
Author Organization [facility] Address [address] [place] [address] Phone Care Team Providers Care Director Of Clinical Education Name Role Phone Cristian Ling MD Primary Care Prov ider Reason for Referral * Diagnostic Imaging (Routine) - Closed Specialty Diagnoses / Procedures Referred By Contac t Referred To Contact Diagnoses Primary osteoarthritis of right hip Procedures FL Fluoro Guided Injection Hip Right Jamari Rodríguez MD [address] [facility] [address] [place] [address] Phone: tel: fax: [facility] Orthopedic Center Referral ID Status Reason Start Date Expiration Date Visits Re quested Visits Authorized [id number] Closed 11/25/2022 12/25/2023 1 1 Encounter Details Date Type Department Care Team (Late st Contact Info) Description 11/25/2022 Orders Only [facility] Orthopaedic Surgery [address] [facility] [address] [place] [phone] Jamari Rodríguez MD [address] [facility] [address] [place] [address] Primary osteoarthritis of right hip [...] file Legal Sex Female 7:12 AM MEDICAL VIDEOGRAPHER Gender Identity Female 02/07/2021 4:33 PM CDT [...] procedure: No NSAIDS/Blood thinners: Yes Eliquis (apixaban) Candy Spreader: Not Applicable Are you on oxygen or have a tracheostomy? (Patients on supplemental oxygen or with current tracheostomy cannot be scheduled at [facility]) No Diabetic: No Not Applicable Confirm patient's insurance: Yes What is patient's BMI (Maximum BMI at [facility] is 45) 32.9 Provided Pre-Procedure Instructions [...] hip documented in this encounter Care Teams Director Of Clinical Education Relationship Specialty Start Date End Date Cristian Ling MD [address] [place] [address] PCP - General 10/16/16 documented as of this encounter
--- OUTSIDE RECORDS SUMMARY | 2024-06-12 04:33 | XMS_ITS | Encounter Summary ---
Author Organization [facility] Address [address] [place] [address] Phone Care Team Providers Care Neon Light Installer Name Role Phone Cristian Ling MD Primary Care Prov ider Reason for Visit * Reason Onset Date Comments Confirmation 10/17/2022 Encounter Details Date Type Department Care Team (Late st Contact Info) Description 10/17/2022 Telephone [facility] Hematology [address] [facility] 7th [place] [address] [place] [address] Sully Owens Confirmation Social History [...] on file Legal Sex Female 7:12 AM ELECTRICIAN JOURNEYMAN WIREMAN Gender Identity Female 02/07/2021 4:33 PM CDT [...] on filedocumented in this encounter Care Teams Neon Light Installer Relationship Specialty Start Date End Date Cristian Ling MD [address] [place] [address] PCP - General 10/16/16 documented as of this encounter
--- OUTSIDE RECORDS SUMMARY | 2024-06-12 04:33 | XMS_ITS | Encounter Summary ---
Author Organization [facility] Address [address] [facility] [address] [place] [address] Care Team Providers Care Store Coordinator Name Role Phone Cristian Ling MD Primary Care Prov ider Encounter Details Date Type Department Care Team (Late st Contact Info) Description 04/02/2022 Orders Only [facility] Cardiology [address] [place] [address] Archie Orellana MD [address] [place] [phone] Social History Tobacco Use Types Packs/Day Years [...] on file Legal Sex Female 7:12 AM COUNTY MANAGER Gender Identity Female 02/07/2021 4:33 PM [...] us Archie Orellana MD [facility] Final Result documented in this encounter Visit Diagnoses Not on filedocumented in this encounter Care Teams Store Coordinator Relationship Specialty Start Date End Date Cristian Ling MD [address] [place] [address] PCP - General 10/16/16 documented as of this encounter
--- OUTSIDE RECORDS SUMMARY | 2024-06-12 04:33 | XMS_ITS | Encounter Summary ---
Author Organization [facility] Address [address] [place] [address] Phone Care Team Providers Care Public Health Teacher Name Role Phone Cristian Ling MD Primary Care Prov ider Reason for Visit * Reason Onset Date Comments Med Refill 11/14/2022 Encounter Details Date Type Department Care Team (Late st Contact Info) Description 11/14/2022 Telephone [facility] Cardiology [address] [facility] Advanced Medicine 8th [place] [address] [place] [address] Sami Stafford MD [address] [facility] [address] [place] [address] Med Refill Social History Tobacco [...] on file Legal Sex Female 7:12 AM HEEL COMPRESSOR Gender Identity Female 02/07/2021 4:33 PM CDT [...] of this encounter Care Teams Public Health Teacher Relationship Specialty Start Date End Date Cristian Ling MD [address] [place] [address] PCP - General 10/16/16 documented as of this encounter
--- OUTSIDE RECORDS SUMMARY | 2024-06-12 04:33 | XMS_ITS | Encounter Summary ---
Author Organization [facility] Address [address] [place] [address] Phone Care Team Providers Care Vp Organizational Development Name Role Phone Cristian Ling MD Primary Care Prov ider Reason for Visit * Oncology (Routine) - Authorized Specialty Diagnoses / Procedures Referred By Contac t Referred To Contact Oncology Diagnoses Anemia, unspecified type Procedures ONCBCN ARM DRAW APPT ONC LAB ONLY Katja Joe MD [address] [place] [address] Phone: tel: fax: Katja Joe MD Phone: tel: fax: Referral ID Status Reason Start Date Expiration Date Visits Requested Visits Authorized [id number] Authorized Specialty Services Required 09/03/2022 09/29/2024 99 99 Encounter Details Date Type Department Care Team (Late st Contact Info) Description 10/18/2022 11:15 AM CDT Lab [facility] Oncology [address] [facility] 7th [place] [address] [place] [address] Anemia, unspecified type Social History [...] file Legal Sex Female 7:12 AM PRECISION LENS POLISHER Gender Identity Female 02/07/2021 4:33 PM CDT [...] 10/18/2022 documented in this encounter Care Teams Vp Organizational Development Relationship Specialty Start Date End Date Cristian Ling MD [address] [place] [address] PCP - General 10/16/16 documented as of this encounter
--- OUTSIDE RECORDS SUMMARY | 2024-06-12 04:33 | XMS_ITS | Encounter Summary ---
Author Organization [facility] Address [address] [place] [address] Care Team Providers Care Eclectic Doctor Name Role Phone Cristian Ling MD Primary Care Prov ider Encounter Details Date Type Department Care Team (Latest Contact Info) Description 03/26/2022 10:39 AM CDT - 03/26/2022 11:59 PM CDT Hospital Encounter [facility] [address] [place] [phone] Discharge Disposition: Discharge to home or self [...] on file Legal Sex Female 7:12 AM PUPPY TRAINER Gender Identity Female 02/07/2021 4:33 PM [...] only and have not been reviewed by [facility] Radiology. ??There will be no report generated by a [facility] Radiologist. Narrative RAD_PACS_[facility] - 03/26/2022 10:39 AM CDT EXAMINATION: ??Images For Reference Purposes Only us Jamari Rodríguez MD IMG CT PROCEDURES Final Re sult RAD_PACS[facility] documented in this encounter Visit Diagnoses Not on filedocumented in this encounter Care Teams Eclectic Doctor Relationship Specialty Start Date End Date Cristian Ling MD [address] [place] [address] PCP - General 10/16/16 documented as of this encounter
--- OUTSIDE RECORDS SUMMARY | 2024-06-12 04:33 | XMS_ITS | Encounter Summary ---
Author Organization [facility] Address [address] [place] [address] Phone Care Team Providers Care Chief Data Officer Name Role Phone Cristian Ling MD Primary Care Prov ider Reason for Visit * Consultation (Routine) - Closed Specialty Diagnoses / Procedures Referred By Contac t Referred To Contact Cardiology Diagnoses Chronic coronary artery disease Hx of CABG Primary hypertension Sami Stafford MD [address] [facility] [address] [place] [address] Phone: tel: fax: [facility] (All Locations) Referral ID Status Reason Start Date Expiration Date V isits Requested Visits Authorized [id number] Closed Specialty Services Required 11/25/2022 11/27/2023 12 12 Encounter Details Date Type Department Care Team (Late st Contact Info) Description 11/27/2022 11:45 AM CDT Office Visit [facility] Cardiology [address] [facility] 8th [place] [address] [place] [id number] Sami Stafford MD [address] [facility] [address] [place] [address] Apical variant hypertrophic cardiomyopathy (HCC) (Primary Dx); Coronary artery disease involving quartz valley coronary artery of quartz valley heart without angina pectoris; Primary hypertension; Paroxysmal [...] on file Legal Sex Female 7:12 AM OPERATOR RECEPTIONIST Gender Identity Female 02/07/2021 4:33 PM [...] through Care Everywhere. * Implantable Cardioverter Defibrillator (Care Technician) (Croatian) documented in this encounter Progress Notes * Sami Stafford MD - 11/27/2022 11:45 AM CDT Images from the original note were not included. Department of Medicine Sami Stafford MD, MPHS, [facility] Cardiovascular Division environmental conservation professor Patient Name: Tiera Lobato : 1945 Date [...] in I, aVL, V3-6, normal axis, normal RI, QRS and QT intervals. 30-day monitor 05/2022 with paroxysmal afib with RVR, NSVT. Assessment/Plan: iTera Lobato is a 77 y.o. female with [...] with an echo. 2. CAD with prior TN and CABG in 2012 ([facility]-L[facility], SVG-OM). She had a recent admission at [facility] 03/2022 with chest pain/shortness of breath. Troponins [...] concerns. Sincerely, Sami Stafford MD, MPHS, FACC environmental conservation professor Cardiovascular Division [facility] in [facility] --- Please note: This note was generated in part using voice-recognition software and may contain automatic profile shaper operator errors. documented in this encounter Plan of Treatment Not on file documented as of this encounter Visit Diagnoses Diagnosis Apical variant hypertrophic cardiomyopathy (HCC)- Primary Coronary artery disease involving quartz valley coronary artery of quartz valley heart without angina pectoris Primary hypertension Unspecified essential hypertension Paroxysmal atrial fibrillation (CMS/HCC) (HCC) Atrial fibrillation documented in this encounter Care Teams Chief Data Officer Relationship Specialty Start Date End Date Cristian Ling MD [address] [place] [address] PCP - General 10/16/16 documented as of this encounter
--- OUTSIDE RECORDS SUMMARY | 2024-06-12 04:33 | XMS_ITS | Encounter Summary ---
Author Organization [facility] Address [address] [place] [address] Phone Care Team Providers Care Heat Treating Furnace Tender Name Role Phone Cristian Ling MD Primary Care Prov ider Encounter Details Date Type Department Care Team (Late st Contact Info) Description 05/22/2022 Telephone [facility] Cardiology [address] [facility] 8th [place] [address] [place] [address] Sami Stafford MD [address] [facility] [address] [place], [place] [id number] Social History Tobacco Use Types Packs/Day Years [...] file Legal Sex Female 7:12 AM QUALITY ASSURANCE TEST PROGRAM MANAGER Gender Identity Female 02/07/2021 4:33 PM [...] Sheila Pacheco RN - 06/11/2022 2:44 PM QUALITY ASSURANCE TEST PROGRAM MANAGER cMRI scheduled 07/25/2022. Will watch for results. ITY ASSURANCE TEST PROGRAM MANAGER * Addendum Note - Sheila Pacheco RN - 06/11/2022 9:12 AM CSTAddended by: SHEILA PACHECO on: 06/11/2022 09:12 AM Modules accepted: Orders ITY ASSURANCE TEST PROGRAM MANAGER * Telephone Encounter - Sheila Pacheco RN - 06/11/2022 9:08 AM QUALITY ASSURANCE TEST PROGRAM MANAGER Spoke with pt to relay lab results. [...] Labs ordered and faxed to [facility] in [place]. Will watch for results. Pt also has cMRI needing to be scheduled. I asked her to call back and schedule testing. She said she will do so now. Will watch for scheduling as well as lab results. ITY ASSURANCE TEST PROGRAM MANAGER * Telephone Encounter - Sheila Pacheco RN - 06/11/2022 9:02 AM QUALITY ASSURANCE TEST PROGRAM MANAGER Reviewed labs. INR 1.0. Cr 1.10. Egfr [...] labs is sent to her PCP, saima. ITY ASSURANCE TEST PROGRAM MANAGER * Telephone Encounter - Ella Dunn - 06/06/2022 9:50 AM CST 06/05 labs are now in chart. ITY ASSURANCE TEST PROGRAM MANAGER * Telephone Encounter - Sheila Pacheco RN - 06/05/2022 2:45 PM QUALITY ASSURANCE TEST PROGRAM MANAGER Spoke with pt who had labs re-drawn at [facility] today. Will request labs. ITY ASSURANCE TEST PROGRAM MANAGER * Telephone Encounter - Sheila Pacheco RN - 06/03/2022 11:12 AM QUALITY ASSURANCE TEST PROGRAM MANAGER Spoke with pt to let her know [...] Will f/u in a couple of days. ITY ASSURANCE TEST PROGRAM MANAGER * Telephone Encounter - Sheila Pacheco RN - 05/30/2022 4:18 PM QUALITY ASSURANCE TEST PROGRAM MANAGER Ella, please request CBC, CMP, and PT/INR from [facility] in [place]. Thank you! ITY ASSURANCE TEST PROGRAM MANAGER * Telephone Encounter - Sheila Pacheco RN - 05/30/2022 10:05 AM QUALITY ASSURANCE TEST PROGRAM MANAGER Spoke to pt who says she had labs drawn Sunday 05/27 at [facility]. Will request results. ITY ASSURANCE TEST PROGRAM MANAGER * Addendum Note - Sheila Pacheco RN - 05/27/2022 9:22 AM CSTAddended by: SHEILA PACHECO on: 05/27/2022 09:22 AM Modules accepted: Orders ITY ASSURANCE TEST PROGRAM MANAGER * Telephone Encounter - Sheila Pacheco RN - 05/27/2022 9:22 AM QUALITY ASSURANCE TEST PROGRAM MANAGER Lab orders faxed to [facility] in [place] [facility]. Will watch for results. ITY ASSURANCE TEST PROGRAM MANAGER * Telephone Encounter - Sami Stafford MD - 05/27/2022 8:41 AM QUALITY ASSURANCE TEST PROGRAM MANAGER Her monitor showed approximately 30 seconds of afib along with 4 beats of NSVT. The minimum duration of afib associated with increased stroke risk is not well-defined. However, a recent paper by Lauren KWON, et al. In Circulation 2019 (https://www.ahajournals.org/doi/full/10.1161/CIRCULATIONAHA.119.453206) found that the minimum duration of afib associated with actionable stroke risk decreased for increasing FVA7MR6FRSy score. Her CFM4VS3LGPq score = 5 (age>75, female, HTN, CAD), for which there was an elevated stroke risk even in the absence of afib. Of note, she also had moderate LAE on recent echo performed at [facility]. Therefore, I would favor anticoagulation to reduce her stroke risk, if she is willing. I discussed risks (including serious, GI, intracranial, and fatal bleeding) and benefits of anticoagulation, and she is willing to start anticoagulation. Plan: Please check CBC, PT/INR, PTT, and CMP. (Labs to be drawn at [facility]). If these look fine, will start apixaban 5 mg bid. Stop aspirin and clopidogrel once started on apixaban. All her questions were answered to her satisfaction. ITY ASSURANCE TEST PROGRAM MANAGER * Telephone Encounter - Sheila Pacheco RN - 05/23/2022 12:36 PM QUALITY ASSURANCE TEST PROGRAM MANAGER Spoke with pt who does not recall any symptoms. She has been feeling good. Instructed pt to call ifshe has any concerns, otherwise we will await full monitor results. ITY ASSURANCE TEST PROGRAM MANAGER * Telephone Encounter - Sheila Pacheco RN - 05/22/2022 3:51 PM QUALITY ASSURANCE TEST PROGRAM MANAGER LMOR for pt to return call. ITY ASSURANCE TEST PROGRAM MANAGER * Telephone Encounter - Sheila Pacheco RN - 05/22/2022 10:28 AM QUALITY ASSURANCE TEST PROGRAM MANAGER Received report from josé miguel of a-fib RVR with 4 beats v-tach on 05/18/22 at 9:50 PM. Will f/u with pt. ITY ASSURANCE TEST PROGRAM MANAGER documented in this encounter Plan of Treatment [...] documented as of this encounter Care Teams Heat Treating Furnace Tender Relationship Specialty Start Date End Date Cristian Ling MD [address] [place] [address] PCP - General 10/16/16 documented as of this encounter
--- OUTSIDE RECORDS SUMMARY | 2024-06-12 04:33 | XMS_ITS | Encounter Summary ---
Author Organization [facility] Address [address] [place] [address] Phone Care Team Providers Care Metal Solderer Name Role Phone Cristian Ling MD Primary Care Prov ider Encounter Details Date Type Department Care Team (Late st Contact Info) Description 08/01/2022 Telephone [facility] Cardiology [address] [facility] 8th [place] [address] [place] [address] Sami Stafford MD [address] [facility] [address] [place], [place] [id number] Social History Tobacco Use Types Packs/Day Years [...] on file Legal Sex Female 7:12 AM DEALERSHIP GENERAL MANAGER Gender Identity Female 02/07/2021 4:33 PM CDT Sexual Orientation Straight 02/07/2021 4: 33 PM CDT documented as of this encounter Miscellaneous Notes * Telephone Encounter - hSeila Solomon RN - 08/01/2022 12:40 PM DEALERSHIP GENERAL MANAGER Letter sent to pt re: info regarding hematology referral/Cardiac MRI result report/Dr. Stafford's result notes. ERSHIP GENERAL MANAGER * Telephone Encounter - Sheila Solomon RN - 08/01/2022 8:59 AM DEALERSHIP GENERAL MANAGER Spoke with pt who requested I mail her a copy of her MRI report as well as the information from on why she is being referred to hematology. I told pt I would mail her the MRI report and a letter with info about referral today. ERSHIP GENERAL MANAGER * Telephone Encounter - Clara Sanchez - 08/01/2022 8:34 AM CST Rivera Pt req a return call to discuss her MRI. Pt has questions. ERSHIP GENERAL MANAGER documented in this encounter Plan of Treatment Not on file documented as of this encounter Visit Diagnoses Not on filedocumented in this encounter Care Teams Metal Solderer Relationship Specialty Start Date End Date Cristian Ling MD [address] [place] [address] PCP - General 10/16/16 documented as of this encounter
--- OUTSIDE RECORDS SUMMARY | 2024-06-12 04:33 | XMS_ITS | Encounter Summary ---
Author Organization [facility] Address [address] [place] [address] Phone Care Team Providers Care Humanities Coordinator Name Role Phone Cristian Ling MD [...] on file Legal Sex Female 7:12 AM SOFTWARE APPLICATION TESTER Gender Identity Female 02/07/2021 4:33 PM [...] on filedocumented in this encounter Care Teams Humanities Coordinator Relationship Specialty Start Date End Date Cristian Ling MD [address] [place] [address] PCP - General 10/16/16 documented as of this encounter
--- OUTSIDE RECORDS SUMMARY | 2024-06-12 04:33 | XMS_ITS | Encounter Summary ---
Author Organization [facility] Address [address] [place] [address] Care Team Providers Care Game Protector Name Role Phone Cristian Ling MD Primary Care Prov ider Reason for Referral * Consultation (Routine) - Closed Specialty Diagnoses / Procedures Referred By Paula t Referred To Contact Orthopedic Surgery Diagnoses Low back pain, unspecified back pain laterality, unspecified chronicity, unspecified whether sciatica present Cristian Ling MD [address] [place] [address] Phone: tel: fax: [facility] (All Locations) Referral ID Status Reason Start Date Expiration Date V isits Requested Visits Authorized [id number] Closed Specialty Services Required 04/04/2022 05/04/2023 1 1 Question Answer Please select the performing region: [facility] (All Locations) [167] # of visits: 1 TEGIC SOURCING CONSULTANT * Diagnostic Imaging (Routine) - Closed Specialty Diagnoses / Procedures Referred By Paula t Referred To Contact Diagnoses Right hip pain Primary osteoarthritis of right hip Procedures FL Fluoro Guided Injection Hip Right Jamari Briseno MD [address] [facility] [facility] [address] [place] [address] Phone: tel: fax: [facility] [address] [place] [address] Referral ID Status Reason Start Date Expiration Date Visits Re quested Visits Authorized [id number] Closed 03/26/2022 04/25/2023 1 1 TEGIC SOURCING CONSULTANT Reason for Visit * Consultation (Routine) - Closed Specialty Diagnoses / Procedures Referred By Contac t Referred To Contact Orthopedic Surgery Diagnoses Low back pain, unspecified back pain laterality, unspecified chronicity, unspecified whether sciatica present Cristian Ling MD [address] [place] [address] Phone: tel: fax: [facility] (All Locations) Referral ID Status Reason Start Date Expiration Date V isits Requested Visits Authorized [id number] Closed Specialty Services Required 04/04/2022 05/04/2023 1 1 Encounter Details Date Type Department Care Team (Latest Contact Info) Description 05/16/2022 1:55 PM STRATEGIC SOURCING CONSULTANT - 05/16/2022 11:59 PM STRATEGIC SOURCING CONSULTANT Hospital Encounter [id number] Radiology [address] [facility] [address] [place] [address] Jamari Briseno MD [address] [facility] [address] [place], [place] [id number] Right hip pain; Primary osteoarthritis of right [...] on file Legal Sex Female 7:12 AM STRATEGIC SOURCING CONSULTANT Gender Identity Female 02/07/2021 4:33 PM CDT Sexual Orientation Straight 02/07/2021 4: 33 PM CDT documented as of this encounter Discharge Instructions * Patient Instructions* Jamari Briseno MD - 05/16/2022 2:20 PM STRATEGIC SOURCING CONSULTANT Post Procedure Instructions You received a steroid [...] those with type 1 diabetes. Check fasting (clinical research spec prior to first meal of the day) [...] concerns after hours, call our exchange at [phone]. For all other questions regarding the procedure, please call our office at [phone]. Pain Diary Please fill out the pain diary chart below and call or message via [employer] the medical provider whorequested the injection, Dr. [...] weeks after? 0% 20% 50% 80% 100% TEGIC SOURCING CONSULTANT documented in this encounter Medications at Time [...] PM CST Right Fluoroscopically-Guided Hip Joint Injection [facility] Department of Orthopedic Surgery Division of [...] the entire procedure above. Jamari Briseno MD TEGIC SOURCING CONSULTANT documented in this encounter Plan of Treatment [...] Read Routine (OP Routine) 05/16/2022 2:31 PM STRATEGIC SOURCING CONSULTANT Right hip pain Primary osteoarthritis of right hip documented in this encounter Results * FL Fluoro Guided Injection Hip Right (05/16/2022 2:31 PM STRATEGIC SOURCING CONSULTANT) Narrative RAD_PACS_[facility] - 05/16/2022 2:31 PM STRATEGIC SOURCING CONSULTANT The images from this study are not [...] at 1359, Intra-Op Given 05/16/2022 1:59 PM STRATEGIC SOURCING CONSULTANT 0.5 mL lidocaine (XYLOCAINE) 10 mg/mL (1 %) injection As needed, Starting on Concha 05/16/22 at 1358, Intra-Procedure (IR), Indications: Administration of Local AnesthesiaIndications:Administrat ion of Local Anesthesia Given 05/16/2022 1:58 PM STRATEGIC SOURCING CONSULTANT 3 mL ropivacaine (NAROPIN) 2 mg/mL (0.2 %) preservative free injection As needed, Starting on Concha 05/16/22 at 1358, Intra-Op Given 05/16/2022 1:58 PM STRATEGIC SOURCING CONSULTANT 3 mL triamcinolone (KENALOG) 40 mg/mL injection As needed, Starting on Concha 05/16/22 at 1359, Intra-Op Given 05/16/2022 1:59 PM STRATEGIC SOURCING CONSULTANT 40 mg documented in this encounter Care Teams Game Protector Relationship Specialty Start Date End Date Cristian Ling MD [address] [place] [address] PCP - General 10/16/16 documented as of this encounter
--- OUTSIDE RECORDS SUMMARY | 2024-06-12 04:33 | XMS_ITS | Encounter Summary ---
Author Organization [facility] Address [address] [place] [address] Phone Care Team Providers Care Vest Baster Name Role Phone Cristian Ling MD Primary Care Prov ider Encounter Details Date Type Department Care Team (Late st Contact Info) Description 04/08/2022 Telephone [facility] Cardiology [address] [facility] 8th [place] [address] [place] [address] Sami Stafford MD [address] [facility] [address] [place], [place] [id number] Social History Tobacco Use Types Packs/Day Years [...] on file Legal Sex Female 7:12 AM RN DERMATOLOGY Gender Identity Female 02/07/2021 4:33 PM CDT [...] Sheila Pacheco RN - 04/25/2022 10:35 AM RN DERMATOLOGY Spoke with pt who started increased lisinopril today. Pt has appt with Dr. Stafford next Friday. Told pt we can obtain BMP on that day. Pt appreciative of call. DERMATOLOGY * Telephone Encounter - Sheila Pacheco RN - 04/16/2022 3:40 PM CDT Spoke with pt who was in the hospital for GI issues and has not started medications. She said she is going to start them this week and get blood work in 1 week. Will f/u. * Telephone Encounter - Ella Dunn - 04/08/2022 3:49 PM CDT Requested recent echo images from [facility]. * Addendum Note - Sheila Pacheco RN [...] 3:29 PM CDT Spoke with Dr. Yaneli Prery from [facility]. Reviewed scanned records. Spoke with patient. She [...] for medical management of non ST elevation IN. Asked her to call for any bleeding or bruising issues in which case we would change from ticagrelor to clopidogrel. 4. To resume walking gently for exercise and to call for any concerning symptoms. 5. Will request echocardiogram images from the outside hospital to review for evidence of apical HCM. (Ella, would you please obtain and load into [employer]? Ty.) * Telephone Encounter - Sami Stafford MD - 04/08/2022 3:06 PM CDT Saw ECG portion of stress test but not imaging portion under Media. Ella, would you please request? ty * Telephone Encounter - Sheila Pacheco RN - 04/08/2022 11:13 AM CDT Spoke with pt. She is discharged from hospital. Shotblaster at OSH was concerned with results of stress test. Pt was admitted to [facility] in [place]. Stress test results are scanned in. Will [...] documented as of this encounter Care Teams Vest Baster Relationship Specialty Start Date End Date Cristian Ling MD [address] [place] [address] PCP - General 10/16/16 documented as of this encounter
--- OUTSIDE RECORDS SUMMARY | 2024-06-12 04:33 | XMS_ITS | Encounter Summary ---
Author Organization [facility] Address [address] [place] [address] Phone Care Team Providers Care Managed Services Sales Consultant Name Role Phone Cristian Ling MD Primary Care Prov ider Encounter Details Date Type Department Care Team (Late st Contact Info) Description 05/02/2022 Telephone [facility] Cardiology [address] [facility] 8th [place] [address] [place] [address] Sami Stafford MD [address] [facility] [address] [place], [place] [phone] Social History Tobacco Use Types Packs/Day Years [...] on file Legal Sex Female 7:12 AM MOBILE SECURITY ARCHITECT Gender Identity Female 02/07/2021 4:33 PM CDT Sexual Orientation Straight 02/07/2021 4: 33 PM CDT documented as of this encounter Miscellaneous Notes * Telephone Encounter - Sheila Solomon RN - 05/02/2022 3:33 PM MOBILE SECURITY ARCHITECT Spoke with pt who is having issues with the monitor she received at her OV yesterday. Instructed ptto contact [employer]ice regarding issues with monitor. Patient verbalized understanding. LE SECURITY ARCHITECT * Telephone Encounter - Clara Brasher - 05/02/2022 3:28 PM CST YULIA PT STATES BP MONITOR IS NOT WORKING. PLEASE CALL TO DISCUSS LE SECURITY ARCHITECT documented in this encounter Plan of Treatment Not on file documented as of this encounter Visit Diagnoses Not on filedocumented in this encounter Care Teams Managed Services Sales Consultant Relationship Specialty Start Date End Date Cristian Ling MD [address] [place] [address] PCP - General 10/16/16 documented as of this encounter
--- OUTSIDE RECORDS SUMMARY | 2024-06-12 04:33 | XMS_ITS | Encounter Summary ---
Author Organization [facility] Address [address] [place] [address] Phone Care Team Providers Care Can Marker Name Role Phone Cristian Ling MD Primary Care Prov ider Reason for Referral * Diagnostic Imaging (Routine) - Closed Specialty Diagnoses / Procedures Referred By Contac t Referred To Contact Diagnoses Primary osteoarthritis of right hip Right hip pain Procedures FL Fluoro Guided Injection Hip Right Jamari Rodríguez MD [address] [facility] [address] [place] [address] Phone: tel: fax: [facility] [address] [place] [address] Referral ID Status Reason Start Date Expiration Date Visits Re quested Visits Authorized [id number] Closed 08/06/2022 09/05/2023 1 1 ILLA MAKER Encounter Details Date Type Department Care Team (Late st Contact Info) Description 08/06/2022 Orders Only [facility] Orthopaedic Surgery [address] [facility] 2nd Floor [address] [place] [address] Jamari Rodríguez MD [address] [facility] [address] [place] [address] Primary osteoarthritis of right hip [...] on file Legal Sex Female 7:12 AM TORTILLA MAKER Gender Identity Female 02/07/2021 4:33 PM CDT Sexual Orientation Straight 02/07/2021 4: 33 PM CDT documented as of this encounter Plan of Treatment Not on file documented as of this encounter Results * FL Fluoro Guided Injection Hip Right (08/15/2022 2:33 PM TORTILLA MAKER) Narrative RAD_PACS[facility] - 08/15/2022 2:33 PM TORTILLA MAKER The images from this study are not [...] thigh documented in this encounter Care Teams Can Marker Relationship Specialty Start Date End Date Cristian Ling MD [address] [place] [address] PCP - General 10/16/16 documented as of this encounter
--- OUTSIDE RECORDS SUMMARY | 2024-06-12 04:33 | XMS_ITS | Encounter Summary ---
Author Organization [facility] Address [address] [place] [address] Phone Care Team Providers Care Manager Electrical Name Role Phone Cristian Ling MD Primary Care Prov ider Encounter Details Date Type Department Care Team (Late st Contact Info) Description 11/18/2022 Telephone [facility] Orthopaedic Surgery [address] [place] [address] Jamari Rodríguez MD [address] [facility] [address] [place], [place] [id number] Social History Tobacco Use Types Packs/Day Years [...] file Legal Sex Female 7:12 AM PRODUCTION GRAPHIC DESIGNER Gender Identity Female 02/07/2021 4:33 PM CDT Sexual Orientation Straight 02/07/2021 4: 33 PM CDT documented as of this encounter Miscellaneous Notes * Telephone Encounter - Vilma Faith - 11/20/2022 2:37 PM CDT Patient is calling again regarding her message she left on 11/18/22 wanting to get another right hip injection patient phone is [phone] * Telephone Encounter - Vilma Faith - 11/18/2022 4:32 PM CDT Patient is asking for a right hip injection again she is available at [phone] documented in this encounter Plan of Treatment Not on file documented as of this encounter Visit Diagnoses Not on filedocumented in this encounter Care Teams Manager Electrical Relationship Specialty Start Date End Date Cristian Ling MD [address] [place] [address] PCP - General 10/16/16 documented as of this encounter
--- OUTSIDE RECORDS SUMMARY | 2024-06-12 04:33 | XMS_ITS | Encounter Summary ---
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 Results from different manufacturers or methods may not be comparable. Serial testing should be performed using the same method. Lambda free light chain 2.09 0.57 - 2.63 mg/dL [facility] Comment: Interpretive Data The Kana Ig Lambda FLC assay procedure was used. Results from different manufacturers or methods may not be comparable. Serial testing should be performed using the same method. Blood 10/18/2022 11:3 6 AM CDT 10/18/2022 11:55 AM CDT Katja Linares MD LAB BLOOD ORDERABLES Caitlyn l Result Performing Organization Address City/State/[facility] Co de Phone Number VALENTE RAMIREZ [facility] [place] [address] * (ABNORMAL) eGFR (10/18/2022 11:28 AM CDT) eGFR 49(L) 90 - 130 mL/min/1. 73 m2 [facility] Comment: Interpretive Data Reference Interval [...] was last reviewed 2021. Testing performed by: [facility], [address] [place] [phone] Blood 10/18/2022 11:2 8 AM CDT 10/18/2022 11:38 AM CDT Katja Linares MD LAB BLOOD ORDERABLES Caitlyn l Result [facility] [place] [address] * Differential, auto (10/18/2022 11:28 AM CDT) Neutrophil abs 2.8 1.8 - 6.6 K/cumm [facility] Comment:Testing performed by : [facility], [address] [place] [phone] Lymphocyte abs 1.4 1.2 - 3.3 K/cumm [facility] Comment:Testing performed by : [facility], [address] [place] [phone] Monocyte abs 0.4 0.2 - 1.2 K/cumm [facility] Comment:Testing performed by : [facility], [address] [place] [phone] Eosinophil abs 0.3 0.0 - 0.5 K/cumm [facility] Comment:Testing performed by : [facility], [address] [place] [phone] Basophil abs 0.1 0.0 - 0.2 K/cumm [facility] Comment:Testing performed by : [facility], [address] [place] [phone] Neutrophil pct 56.2 % [facility] Comment: Interpretive Data Percent cell count reference ranges are not reported, since discordance with absolute values may lead to misinterpretation of CBC data. Current Interpretive Data was last revised on 2017. Testing performed by: [facility], [address] [place] [phone] Lymphocyte pct 28.6 % [facility] Comment: Interpretive Data Percent cell count reference ranges are not reported, since discordance with absolute values may lead to misinterpretation of CBC data. Current Interpretive Data was last revised on 2017. Testing performed by: [facility], [address] [place] [phone] Monocyte pct 8.6 % [facility] Comment:Testing performed by : [facility], [address] [place] [phone] Eosinophil pct 5.5 % [facility] Comment:Testing performed by : [facility], [address] [place] [phone] Basophil pct 1.1 % [facility] Comment:Testing performed by : [facility], [address] [place] [phone] Blood 10/18/2022 11:2 8 AM CDT 10/18/2022 11:38 AM CDT Katja Linares MD LAB BLOOD ORDERABLES Caitlyn dominguez Result [facility] [place] [address] * (ABNORMAL) CBC with auto differential (10/18/2022 11:28 AM CDT) WBC 4.9 3.8 - 9.8 K/cumm [facility]ENTE [facility]IREZ Comment:Testing performed by : [facility], [address] [place] [phone] Hgb 10.1(L) 12.1 - 15.1 g/dL [facility]ENTE [facility]IREZ Comment:Testing performed by : [address] [phone] Hct 29.9(L) 36.1 - 44.3 % [facility]E [facility]IREZ Comment:Testing performed by : [address] [phone] Plt 186 140 - 440 K/cumm [facility] Comment:Testing performed by : [facility], [address] [place] [phone] MPV 9.6 6.8 - 10.4 fL [facility]IRE[facility] Comment:Testing performed by : [address] [phone] RBC 3.29(L) 3.90 - 5.00 M/cumm [facility]E RAMIREZ Comment:Testing performed by : [address] [phone] MCV 91.0 80.0 - 97.6 fL [facility] RAMIREZ Comment:Testing performed by : [facility], [address] [place] [phone] MCH 30.9 26.7 - 33.7 pg [facility]E RAMIREZ Comment:Testing performed by : [facility], [address] [place] [phone] MCHC 33.9 32.7 - 35.5 g/dL [facility] RAMIREZ Comment:Testing performed by : [facility], [address] [place] [phone] RDW CV 13.3 11.8 - 14.6 % VALENTE RAMIREZ Comment:Testing performed by : [facility], [address] [place] [phone] NRBC abs 0.00 0.00 - 0.01 K/cumm VALENTE RAMIREZ Comment:Testing performed by : [facility], [address] [place] [phone] Blood 10/18/2022 11:2 8 AM CDT 10/18/2022 11:38 AM CDT Katja Linares MD LAB BLOOD ORDERABLES Caitlyn l Result [facility]IRE[facility] Department [place] [address] * (ABNORMAL) Comprehensive metabolic panel (10/18/2022 11:28 AM CDT) Sodium 140 135 - 145 mmol/L [facility]E RAMIREZ Comment:Testing performed by : [facility], [address] [place] [phone] Potassium, pl 4.5 3.3 - 4.9 mmol/L [facility]E RAMIREZ Comment:Testing performed by : [address] [phone] Chloride 105 97 - 110 mmol/L [facility] RAMIREZ Comment:Testing performed by : [facility], [address] [place] [phone] CO2 29 22 - 32 mmol/L [facility]E RAMIREZ Comment:Testing performed by : [facility], [address] [place] [phone] Anion gap 6 2 - 15 mmol/L [facility] Comment:Testing performed by : [facility], [address] [place] [phone] BUN 21 8 - 25 mg/dL [facility] Comment:Testing performed by : [facility], [address] [place] [phone] Creatinine 1.15(H) 0.60 - 1.10 mg/dL [facility] Comment:Testing performed by : [facility], [address] [place] [phone] Glucose 83 70 - 199 mg/dL [facility] [...] last revised 2022. Testing performed by: [facility], [address] [place] [phone] Calcium 10.0 8.5 - 10.3 mg/dL [facility] Comment:Testing performed by : [address] [phone] Bilirubin, total 0.4 0.1 - 1.2 mg/dL [facility] Comment:Testing performed by : [address] [phone] Protein, pl 6.9 6.5 - 8.5 g/dL [facility] Comment:Testing performed by : [address] [phone] Albumin 4.1 3.5 - 5.0 g/dL [facility] Comment:Testing performed by : [address] [phone] Alk phos 81 40 - 130 Units/L [facility] Comment:Testing performed by : [facility], [address] [place] [phone] ALT 15 7 - 45 Units/L [facility] Comment:Testing performed by : [facility], [address] [place] [phone] AST 18 10 - 45 Units/L [facility] Comment:Testing performed by : [facility], [address] [place] [phone] Blood 10/18/2022 11:2 8 AM CDT 10/18/2022 11:38 AM CDT Narrative [facility] - 10/18/2022 11:57 AM CDT Has the patient fasted?->No Katja Linares MD LAB BLOOD ORDERABLES Caitlyn l Result Performing Organization Address [facility] Co de Phone Number [facility] [place] [address] * Lactate dehydrogenase (LD) (10/18/2022 11:28 AM CDT) Pathologist [facility] Lactate dehydrogenase (LDH) 178 100 - 250 Units/L [facility] Comment:Testing performed by : [facility], [address] [place] [phone] Blood 10/18/2022 11:2 8 AM CDT 10/18/2022 11:38 AM CDT Katja Linares MD LAB BLOOD ORDERABLES Caitlyn l Result Performing Organization Address [facility] de Phone Number [facility] Department [place] [address] * Reticulocyte Count (10/18/2022 11:28 AM CDT) Retics, absolute 0.028 0.020 - 0.087 M/cumm [facility] Comment:Testing performed by : [facility], [address] [place] [phone] Retics 0.85 0.50 - 1.80 % [facility] Comment:Testing performed by : [facility], [address] [facility] [phone] Blood 10/18/2022 11:2 8 AM CDT 10/18/2022 11:38 AM CDT Katja Linares MD LAB BLOOD ORDERABLES Caitlyn l Result [facility] [place] [address] * Haptoglobin (10/18/2022 11:28 AM CDT) Haptoglobin 165.0 30.0 - 200.0 mg/dL [facility] Blood 10/18/2022 11:2 8 AM CDT 10/18/2022 11:55 AM CDT Katja Linares MD LAB BLOOD ORDERABLES Caitlyn l Result Performing Organization Address [facility] [place] [address] * Iron profile w/ IBC (10/18/2022 11:28 AM CDT) Iron 59 35 - 145 mcg/dL [facility] TIBC 288 250 - 400 mcg/dL [facility] Transferrin saturation 20 20 - 50 % [facility] Blood 10/18/2022 11:2 8 AM CDT 10/18/2022 11:55 AM CDT Katja Linares MD LAB BLOOD ORDERABLES Caitlyn l Result Performing Organization Address City/[facility]/[place] [address] * Ferritin (10/18/2022 11:28 AM CDT) Ferritin 48 13 - 150 ng/mL [facility] Blood 10/18/2022 11:2 8 AM CDT 10/18/2022 11:55 AM CDT Katja Linares MD LAB BLOOD ORDERABLES Caitlyn l Result Performing Organization Address [facility] Co de Phone Number [facility] [place] [address] * Folate (10/18/2022 11:28 AM CDT) Folic acid 15.5 >=5.0 ng/mL [facility] Blood 10/18/2022 11:2 8 AM CDT 10/18/2022 11:55 AM CDT Katja Linares MD LAB BLOOD ORDERABLES Caitlyn l Result Performing Organization Address [facility] de Phone Number [facility] [place] [address] * (ABNORMAL) Vitamin B12 (10/18/2022 11:28 AM CDT) Vitamin B12 1,302(H) 230 - 1,250 pg/mL [facility] Blood 10/18/2022 11:2 8 AM CDT 10/18/2022 11:55 AM CDT Katja Linares MD LAB BLOOD ORDERABLES Caitlyn l Result Performing Organization Address [facility] Co de Phone Number [facility] [place] [address] * Methylmalonic acid, serum (10/18/2022 11:28 AM CDT) MMA 0.28 <=0.40 nmol/mL [facility] Comment: ADDITIONAL INFORMATION This test was developed and its performance characteristics determined by [facility] in a manner consistent with CLIA requirements. This test has not been cleared or approved by the U.S. Food and Drug Administration. Test Performed by: [facility] [address] [place] [address] Distillery Laborer: Leno Nogueira M.D. Ph.D.; CLIA# [id number] Blood 10/18/2022 11:2 8 AM CDT 10/18/2022 12:11 PM CDT Katja Linares MD LAB BLOOD ORDERABLES Caitlyn l Result Performing Organization Address [facility] Co de Phone Number [facility] [place] [address] * (ABNORMAL) Erythropoietin (10/18/2022 11:28 AM CDT) [facility] Erythropoietin 20.7(H) 2.6 - 18.5 mIUnits/m L [facility] Comment: Test Performed by: [facility] [address] [place] [address] Distillery Laborer: Leno Nogueira M.D. Ph.D.; CLIA# [id number] Blood 10/18/2022 11:2 8 AM CDT 10/18/2022 12:11 PM CDT Katja Linares MD LAB BLOOD ORDERABLES Caitlyn l Result Performing Organization Address [facility] [place] [address] * Protein electrophoresis with reflex, serum (10/18/2022 11:28 AM CDT) [facility] Protein, sr 6.5 6.2 - 8.2 g/dL [facility] Albumin 3.9 3.2 - 5.0 g/dL [facility] Alpha-1 globulin 0.3 0.2 - 0.4 g/dL [facility] Alpha-2 globulin 0.8 0.5 - 1.0 g/dL [facility] Beta-1 globulin 0.4 0.3 - 0.6 g/dL [facility] Beta-2 globulin 0.3 0.2 - 0.6 g/dL [facility] Gamma globulin 0.7 0.5 - 1.7 g/dL [facility] SPEP interp Please see comment [facility] Comment: No apparent monoclonal peak Reviewed and signed by Aguila Redding MD, PhD 10/21/2022 Blood 10/18/2022 11:2 8 AM CDT 10/18/2022 11:53 AM CDT Katja Linares MD LAB BLOOD ORDERABLES Caitlyn l Result Performing Organization Address City/[facility]/ZIP Co de Phone Number [facility] [place] [address] * IgG (10/18/2022 11:28 AM CDT) Immunoglobulin G 771.0 700.0 - 1,600.0 mg/dL [facility] Blood 10/18/2022 11:2 8 AM CDT 10/18/2022 11:55 AM CDT Katja Linares MD LAB BLOOD ORDERABLES Caitlyn l Result [facility] [place] [address] * IgM (10/18/2022 11:28 AM CDT) Immunoglobulin M 101.0 40.0 - 230.0 mg/dL [facility] Blood 10/18/2022 11:2 8 AM CDT 10/18/2022 11:55 AM CDT Katja Linares MD LAB BLOOD ORDERABLES Caitlyn l Result Performing Organization Address [facility] [place] [address] * IgA (10/18/2022 11:28 AM CDT) Immunoglobulin A 212.0 70.0 - 400.0 mg/dL [facility] Blood 10/18/2022 11:2 8 AM CDT 10/18/2022 11:55 AM CDT Katja Linares MD LAB BLOOD ORDERABLES Caitlyn l Result Performing Organization Address [facility] [place] [address] * (ABNORMAL) Beta 2 microglobulin, serum (10/18/2022 11:28 AM CDT) Pathologist [facility] Beta 2 Microglobulin, Serum 4.00(H) 1.00 - 2.50 mg/L [facility] Comment: Interpretive Data The Kana Beta-2 microglobulin assay procedure was used. Results from different manufacturers or methods may not be comparable. Serial testing should be performed using the same method. Blood 10/18/2022 11:2 8 AM CDT 10/18/2022 11:55 AM CDT Katja Linares MD LAB BLOOD ORDERABLES Caitlyn l Result Performing Organization Address [facility] [place] [address] documented in this encounter Visit Diagnoses Diagnosis Anemia, unspecified type documented in this encounter Care Teams Tow Feeder Relationship Specialty Start Date End Date Cristian Ling MD [address] [place] [address] PCP - General 10/16/16 documented as of this encounter
--- OUTSIDE RECORDS SUMMARY | 2024-06-12 04:33 | XMS_ITS | Encounter Summary ---
Author Organization [facility] Address [address] [place] [address] Phone Care Team Providers Care Mobile Security Specialist Name Role Phone Cristian Ling MD Primary Care Prov ider Reason for Visit * Reason Onset Date Comments Confirmation 09/04/2022 Encounter Details Date Type Department Care Team (Late st Contact Info) Description 09/04/2022 Telephone [facility] Hematology [facility] 7th [place] [address] [place] [address] Sully Owens Confirmation Social History [...] on file 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
--- OUTSIDE RECORDS SUMMARY | 2024-06-12 04:33 | XMS_ITS | Encounter Summary ---
Author Organization [facility] Address [address] [place] [address] Phone Care Team Providers Care Direct Marketing Intern Name Role Phone Cristian Ling MD Primary Care Prov ider Encounter Details Date Type Department Care Team (Late st Contact Info) Description 04/04/2022 Telephone [facility] Cardiology [address] [facility] 8th [place] [address] [place] [address] Sami Stafford MD [address] [facility] [address] [place], [place] [id number] Social History Tobacco Use Types Packs/Day Years [...] on file 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 Please call pt is rescheduling is needed. documented in this encounter Plan of Treatment Not on file documented as of this encounter Visit Diagnoses Not on filedocumented in this encounter Care Teams Direct Marketing Intern Relationship Specialty Start Date End Date Cristian Ling MD [address] [place] [address] PCP - General 10/16/16 documented as of this encounter
--- OUTSIDE RECORDS SUMMARY | 2024-06-12 04:33 | XMS_ITS | Encounter Summary ---
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
--- OUTSIDE RECORDS SUMMARY | 2024-06-12 04:33 | XMS_ITS | Encounter Summary ---
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 [address] If you have any financial questions please call [phone] If you need to cancel or reschedule your appointment please call [phone] Ask them the covid screening questions Have [...] connect the patient with Beba Busch, the custom studio coordinator at [phone]. If a direct number is requested by the patient please give them [phone]. UNT EXECUTIVE SALES REPRESENTATIVE documented in this encounter Plan of Treatment Not on file documented as of this encounter Visit Diagnoses Not on filedocumented in this encounter Care Teams General Office Assistant Relationship Specialty Start Date End Date Cristian Ling MD [address] [place] [address] PCP - General 10/16/16 documented as of this encounter
--- OUTSIDE RECORDS SUMMARY | 2024-06-12 04:33 | XMS_ITS | Encounter Summary ---
Author Organization [facility] Address [address] [place] [address] Phone Care Team Providers Care Manager Water Name Role Phone Cristian Ling MD Primary Care Prov ider Reason for Visit * Reason Onset Date Comments Med Refill 05/01/2022 Encounter Details Date Type Department Care Team (Late st Contact Info) Description 05/01/2022 Telephone [facility] Cardiology [address] [facility] 8th [place] [address] [place] [address] Sami Stafford MD [address] [facility] [address] [place] [address] Med Refill Social History Tobacco [...] on file Legal Sex Female 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 OGRAPHIC EDITOR * Telephone Encounter - Ella Dunn - 05/01/2022 1:45 PM CST Images from the original note were not included. OGRAPHIC EDITOR documented in this encounter Plan of Treatment Not on file documented as of this encounter Visit Diagnoses Not on filedocumented in this encounter Care Teams Manager Water Relationship Specialty Start Date End Date Cristian Ling MD [address] [place] [address] PCP - General 10/16/16 documented as of this encounter
--- OUTSIDE RECORDS SUMMARY | 2024-06-12 04:33 | XMS_ITS | Encounter Summary ---
Author Organization [facility] Address [address] [place] [address] Phone Care Team Providers Care General Claims Agent Name Role Phone Cristian Ling MD Primary Care Prov ider Encounter Details Date Type Department Care Team (Late st Contact Info) Description 12/05/2021 Telephone [facility] Cardiology [address] [facility] Advanced [facility] 8th [place] [address] [place] [address] Sami Stafford MD [address] [facility] [address] [place], [place] [id number] Social History Tobacco Use Types Packs/Day Years [...] on file 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
--- OUTSIDE RECORDS SUMMARY | 2024-06-12 04:33 | XMS_ITS | Encounter Summary ---
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 Current Interpretive Data was last revised on 2017. Imm gran pct 0.2 % [facility] Comment: Interpretive Data Percent cell count reference ranges are not reported, since discordance with absolute values may lead to misinterpretation of CBC data. Current Interpretive Data was last revised on 2017. Lymphocyte pct 28.7 % [facility] Comment: Interpretive Data Percent cell count reference ranges are not reported, since discordance with absolute values may lead to misinterpretation of CBC data. Current Interpretive Data was last revised on 2017. Monocyte pct 11.1 % [facility] Comment: Interpretive Data Percent cell count reference ranges are not reported, since discordance with absolute values may lead to misinterpretation of CBC data. Current Interpretive Data was last revised on 2017. Eosinophil pct 6.3 % [facility] Comment: Interpretive Data Percent cell count reference ranges are not reported, since discordance with absolute values may lead to misinterpretation of CBC data. Current Interpretive Data was last revised on 2017. Basophil pct 1.0 % [facility] Comment: Interpretive Data Percent cell count reference ranges are not reported, since discordance with absolute values may lead to misinterpretation of CBC data. Current Interpretive Data was last revised on 2017. Blood 11/27/2022 1:20 PM CDT 11/27/2022 1:28 PM CDT Katja Linares MD LAB BLOOD ORDERABLES Caitlyn l Result Performing Organization Address City/[facility]/ZIP Co de Phone Number [facility] [place] [address] * (ABNORMAL) CBC with auto differential (11/27/2022 1:20 PM CDT) [facility] WBC 5.1 3.8 - 9.9 K/cumm [facility] Hgb 10.0(L) 11.9 - 15.5 g/dL [facility] Hct 31.1(L) 35.6 - 45.5 % [facility] Plt 178 150 - 400 K/cumm [facility] MPV 12.0 9.1 - 12.3 fL [facility] RBC 3.30(L) 3.90 - 5.20 M/cumm [facility] MCV 94.2 81.3 - 96.4 fL [facility] MCH 30.3 27.1 - 33.3 pg [facility] MCHC 32.2(L) 32.3 - 35.7 g/dL [facility] RDW CV 13.2 11.1 - 14.9 % [facility] RDW SD 45.7 35.7 - 48.1 fL [facility] NRBC abs 0.00 0.00 - 0.01 K/cumm [facility] Blood 11/27/2022 1:20 PM CDT 11/27/2022 1:28 PM CDT Katja Linares MD LAB BLOOD ORDERABLES Caitlyn l Result [facility] [place] [address] documented in this encounter Visit Diagnoses Diagnosis Anemia, unspecified type documented in this encounter Care Teams Parking Patroller Relationship Specialty Start Date End Date Cristian Ling MD [address] [place] [address] PCP - General 10/16/16 documented as of this encounter
--- OUTSIDE RECORDS SUMMARY | 2024-06-12 04:33 | XMS_ITS | Encounter Summary ---
Author Organization [facility] Address [address] [place] [address] Phone Care Team Providers Care Rn First Assist Name Role Phone Cristian Ling MD Primary Care Prov ider Reason for Visit * Reason Onset Date Comments [facility] scheduling 05/15/2022 Encounter Details Date Type Department Care Team (Late st Contact Info) Description 05/15/2022 Telephone [facility] Cardiology [address] [facility] Advanced Medicine 8th [place] [address] [place] [address] Sami Stafford MD [address] [place] [address] [facility] scheduling Social History Tobacco [...] file Legal Sex Female 7:12 AM TOOL MAKER Gender Identity Female 02/07/2021 4:33 PM CDT Sexual Orientation Straight 02/07/2021 4: 33 PM CDT documented as of this encounter Miscellaneous Notes * Telephone Encounter - Sheila Solomon RN - 06/12/2022 9:10 AM TOOL MAKER cMRI scheduled 07/25/22. MAKER * Telephone Encounter - Sydney Adam - 05/17/2022 8:17 AM CST Pt was contacted by phone regarding scheduling CMRI and letter was mailed. CMRI has not yet been scheduled. MAKER * Telephone Encounter - Norma Landry - 05/15/2022 2:45 PM TOOL MAKER Per note on order-we Called and LMOR on 05/07/22. I just sent UTR letter today MAKER * Telephone Encounter - Sheila Solomon RN - 05/15/2022 8:45 AM TOOL MAKER OV 05/01 cardiac MRI ordered. Scheduled? MAKER documented in this encounter Plan of Treatment Not on file documented as of this encounter Visit Diagnoses Not on filedocumented in this encounter Care Teams Rn First Assist Relationship Specialty Start Date End Date Cristian Ling MD [address] [place] [address] PCP - General 10/16/16 documented as of this encounter
--- OUTSIDE RECORDS SUMMARY | 2024-06-12 04:33 | XMS_ITS | Encounter Summary ---
Author Organization [facility] Address [address] [facility] [address] [place] [address] Care Team Providers Care Grain Mixer Name Role Phone Cristian Ling MD Primary Care Prov ider Encounter Details Date Type Department Care Team (Late st Contact Info) Description 04/02/2022 Orders Only [facility] Cardiology [address] [place] [address] [place] [address] [place] [address] Social History Tobacco Use Types Packs/Day [...] on file Legal Sex Female 7:12 AM PENSION FUND MANAGER Gender Identity Female 02/07/2021 4:33 PM CDT Sexual Orientation Straight 02/07/2021 4: 33 PM CDT documented as of this encounter Plan of Treatment Not on file documented as of this encounter Procedures Procedure Name Priority Date/Time Associated Diagnosis Comments CARDIOLOGY DOCUMENT SCAN Routine 04/02/2022 documented in this encounter Results * Cardiology Document Scan (04/02/2022) Anatomical Region Laterality Modality Other [facility] Pratima Perry MD CV CARDIAC SERVICES PRO CEDURES Final Result documented in this encounter Visit Diagnoses Not on filedocumented in this encounter Care Teams Grain Mixer Relationship Specialty Start Date End Date Cristian Ling MD [address] [place] [address] PCP - General 10/16/16 documented as of this encounter
--- OUTSIDE RECORDS SUMMARY | 2024-06-12 04:33 | XMS_ITS | Encounter Summary ---
Author Organization [facility] Address [address] [place] [address] Phone Care Team Providers Care Spoilage Worker Name Role Phone Cristian Ling MD Primary Care Prov ider Reason for Visit * Reason Onset Date Comments Med Refill 10/22/2022 Encounter Details Date Type Department Care Team (Late st Contact Info) Description 10/22/2022 Telephone [facility] Cardiology [address] [facility] Advanced Medicine 8th [place] [address] [place] [address] Sami Stafford MD [address] [facility] [address] [place] [address] Med Refill Social History Tobacco [...] on file Legal Sex Female 7:12 AM GASOLINE SERVICE ATTENDANT Gender Identity Female 02/07/2021 4:33 PM [...] documented as of this encounter Care Teams Spoilage Worker Relationship Specialty Start Date End Date Cristian Ling MD [address] [place] [address] PCP - General 10/16/16 documented as of this encounter
--- OUTSIDE RECORDS SUMMARY | 2024-06-12 04:33 | XMS_ITS | Encounter Summary ---
Author Organization [facility] Address [address] [place] [address] Phone Care Team Providers Care Associate Director Career Services Name Role Phone Cristian Ling MD Primary Care Prov ider Encounter Details Date Type Department Care Team (Late st Contact Info) Description 04/01/2022 Telephone [facility] Cardiology [address] [facility] 8th [place] [address] [place] [address] Sami Stafford MD [address] [facility] [address] [place], [place] [id number] Social History Tobacco Use Types Packs/Day Years [...] file Legal Sex Female 7:12 AM MANAGER GAMES Gender Identity Female 02/07/2021 4:33 PM CDT [...] herto ED. She reports she is at [facility] and the doctors have mentioned a possible cardiac cath or a stress test. They said they would be reaching out to JS to discuss; pt wants his input/prefers to have procedure at [place]. Will make JS aware. * Telephone Encounter [...] dizzy. Pt states she lives in an bilingual sales assistant living facility and they had taken her BP, her BP was high while lying down and was ok when standing. They told pt she is dehydrated and pt asking if Dr. Stafford agrees with this. Please call. documented in this encounter Plan of Treatment Not on file documented as of this encounter Visit Diagnoses Not on filedocumented in this encounter Care Teams Associate Director Career Services Relationship Specialty Start Date End Date Cristian Ling MD [address] [place] [address] PCP - General 10/16/16 documented as of this encounter
--- OUTSIDE RECORDS SUMMARY | 2024-06-12 04:33 | XMS_ITS | Encounter Summary ---
Author Organization [facility] Address [address] [place] [address] Phone Care Team Providers Care Director Of Program Management Name Role Phone Cristian Ling MD Primary Care Prov ider Reason for Referral * Oncology (Routine) - Authorized Specialty Diagnoses / Procedures Referred By Contac t Referred To Contact Hematology Diagnoses Anemia, unspecified type Sami Stafford MD [address] [facility] [address] [place] [address] Phone: tel: fax: Katja Joe MD Phone: tel: fax: Referral ID Status Reason Start Date Expiration Date Visits Requested Visits Authorized [id number] Authorized Specialty Services Required 07/22/2022 09/29/2024 26 26 Question Answer Please select the performing region: [facility] (All Locations) [[id number]] Please select the performing department: [facility] HEM CAM 8B [[id number]] # of visits: [address] Stafford: recommend hematology eval for opinion whether this is explained by her CKD or if there is another process contributing to low production of RBCs. LING MANAGER Encounter Details Date Type Department Care Team (Late st Contact Info) Description 07/10/2022 Telephone [facility] Cardiology [address] [facility] 8th [place] [address] [place] [address] Sami Stafford MD [address] [facility] [address] [place] [address] Social History Tobacco Use Types Packs/Day Years [...] file Legal Sex Female 7:12 AM MODELING MANAGER Gender Identity Female 02/07/2021 4:33 PM CDT Sexual Orientation Straight 02/07/2021 4: 33 PM CDT documented as of this encounter Miscellaneous Notes * Addendum Note - Sheila Pacheco RN - 07/22/2022 3:51 PM CSTAddended by: SHEILA PACHECO on: 07/22/2022 03:51 PM Modules accepted: Orders LING MANAGER * Telephone Encounter - Sheila Pacheco RN - 07/22/2022 3:50 PM MODELING MANAGER Spoke with pt to relay results/recs from Dr. Stafford. Pt amenable to plan. Amb ref to hematology placed. Will watch for scheduling. LING MANAGER * Telephone Encounter - Sami Stafford MD - 07/22/2022 3:24 PM MODELING MANAGER Given her anemia with hgb 10.7 and low reticulocyte count, indicating low production of RBCs, recommend hematology eval for opinion whether this is explained by her CKD or if there is another processcontributing to low production of RBCs. LING MANAGER * Telephone Encounter - Sheila Pacheco RN - 07/22/2022 8:58 AM MODELING MANAGER Images from the original note were not included. LING MANAGER * Telephone Encounter - Suki Doe RN - 07/19/2022 4:32 PM CST Labs forwarded to Dr Stafford under cc'd LING MANAGER * Telephone [place] - Suki Doe RN - 07/19/2022 8:55 AM CST No results LING MANAGER * Telephone Encounter - Sheila Pacheco RN - 07/18/2022 3:49 PM MODELING MANAGER Noted. Will watch for results. LING MANAGER * Telephone Sheila Nunez RN - 07/17/2022 3:22 PM MODELING MANAGER LMOR for pt with lab work reminder. LING MANAGER * Telephone Sheila Nunez RN - 07/10/2022 12:59 PM MODELING MANAGER Spoke with pt to remind her of lab work due. I refaxed the orders to [facility] in [place]. She said she will have them drawn next Friday. Will f/u for results. LING MANAGER * Telephone Encounter - Sheila Pacheco RN - 07/10/2022 10:44 AM MODELING MANAGER Pt to have TSH and retics drawn at [facility] in [place] within the next month. Results? (06/11/2022) LING MANAGER documented in this encounter Plan of Treatment Scheduled Referrals Name Type Priority Associated Diagnoses Orde r Schedule Ambulatory referral to Hematology Outpatient Referral Routine Anemia, unspecified type Expected: 08/05/2022 (Approximate), Expires: 07/22/2023 documented as of this encounter Visit Diagnoses Diagnosis Anemia, unspecified type- Primary documented in this encounter Care Teams Director Of Program Management Relationship Specialty Start Date End Date Cristian Ling MD [address] [place] [address] PCP - General 10/16/16 documented as of this encounter
--- OUTSIDE RECORDS SUMMARY | 2024-06-12 04:33 | XMS_ITS | Encounter Summary ---
Author Organization [facility] Healthcare Address [address] [place] [address] Care Team Providers Care Slubber Frame Changer Name Role Phone Cristian Ling MD Primary Care Prov ider Reason for Referral * Diagnostic Imaging (Routine) - Closed Specialty Diagnoses / Procedures Referred By Contac t Referred To Contact Diagnoses Primary osteoarthritis of right hip Right hip pain Procedures FL Fluoro Guided Injection Hip Right Jamari Briseno MD [address] [facility] [address] [place] [address] Phone: tel: fax: [address] [phone] Referral ID Status Reason Start Date Expiration Date Visits Re quested Visits Authorized [id number] Closed 08/06/2022 09/05/2023 1 1 ITURE UPHOLSTERER Reason for Visit * Diagnostic Imaging (Routine) - Closed Specialty Diagnoses / Procedures Referred By Contac t Referred To Contact Diagnoses Primary osteoarthritis of right hip Right hip pain Procedures FL Fluoro Guided Injection Hip Right Jamari Briseno MD [address] [facility] [address] [place] [address] Phone: tel: fax: [address] [address] Referral ID Status Reason Start Date Expiration Date Visits Re quested Visits Authorized [id number] Closed 08/06/2022 09/05/2023 1 1 Encounter Details Date Type Department Care Team (Latest Contact Info) Description 08/15/2022 1:52 PM FURNITURE UPHOLSTERER - 08/15/2022 11:59 PM FURNITURE UPHOLSTERER Hospital Encounter [id number] Radiology [address] [facility] [address] [place] [address] Jamari Briseno MD [address] [facility] [address] [place] [address] Primary osteoarthritis of right hip; Right hip [...] on file Legal Sex Female 7:12 AM FURNITURE UPHOLSTERER Gender Identity Female 02/07/2021 4:33 PM CDT Sexual Orientation Straight 02/07/2021 4: 33 PM CDT documented as of this encounter Discharge Instructions * Patient Instructions* Jamari Briseno MD - 08/15/2022 2:00 PM FURNITURE UPHOLSTERER Post Procedure Instructions You received a steroid [...] those with type 1 diabetes. Check fasting (early childhood director prior to first meal of the day) [...] concerns after hours, call our exchange at [phone]. For all other questions regarding the procedure, please call our office at [phone]. Pain Diary Please fill out the pain diary chart below and call or message via [employer] the medical provider whorequested the injection, Dr. [...] weeks after? 0% 20% 50% 80% 100% ITURE UPHOLSTERER documented in this encounter Medications at Time [...] PM CST Right Fluoroscopically-Guided Hip Joint Injection [facility] Department of Orthopedic Surgery Division [...] the entire procedure above. Jamari Briseno MD ITURE UPHOLSTERER documented in this encounter Plan of Treatment Not on file documented as of this encounter Procedures Procedure Name Priority Date/Time Associated Diagnosis Comments FLUORO GUIDED INJECTION HIP RIGHT Schedule Routine, Read Routine (OP Routine) 08/15/2022 2:33 PM FURNITURE UPHOLSTERER Primary osteoarthritis of right hip Right hip pain documented in this encounter Results * FL Fluoro Guided Injection Hip Right (08/15/2022 2:33 PM FURNITURE UPHOLSTERER) Narrative [id number] - 08/15/2022 2:33 PM FURNITURE UPHOLSTERER The images from this study are not interpreted by Radiology. ??Please refer to the physician's procedure / OR operative note. Jamari Briseno MD IMG FLUOROSCOPY PROCEDURES Final Result Performing Organization Address City/State/[facility] Co de Phone Number [email or web address] documented in [...] at 1424, Intra-Op Given 08/15/2022 2:24 PM FURNITURE UPHOLSTERER 0.5 mL lidocaine PF (XYLOCAINE) 10 mg/mL (1 %) preservative free injection As needed, Starting on Concha 08/15/22 at 1422, Intra-Procedure (IR), Indications: Administration of Local AnesthesiaIndications:Administrati on of Local Anesthesia Given 08/15/2022 2:22 PM FURNITURE UPHOLSTERER 2 mL ropivacaine (NAROPIN) 2 mg/mL (0.2 %) preservative free injection As needed, Starting on Concha 08/15/22 at 1422, Intra-Op Given 08/15/2022 2:22 PM FURNITURE UPHOLSTERER 2 mL triamcinolone (KENALOG) 40 mg/mL injection As needed, Starting on Concha 08/15/22 at 1425, Intra-Op Given 08/15/2022 2:25 PM FURNITURE UPHOLSTERER 40 mg documented in this encounter Care Teams Slubber Frame Changer Relationship Specialty Start Date End Date Cristian Ling MD [address] [place] [address] PCP - General 10/16/16 documented as of this encounter
--- OUTSIDE RECORDS SUMMARY | 2024-06-12 04:33 | XMS_ITS | Encounter Summary ---
Author Organization [facility] Address [address] [place] [address] Phone Care Team Providers Care Management Professor Name Role Phone Cristian Ling MD Primary Care Prov ider Encounter Details Date Type Department Care Team (Late st Contact Info) Description 05/13/2022 Telephone [facility] Cardiology [address] [facility] Advanced [facility] 8th [place] [address] [place] [address] Sami Stafford MD [address] [facility] [address] [place], [place] [id number] Social History Tobacco Use Types Packs/Day Years [...] on file Legal Sex Female 7:12 AM DATABASE MANAGEMENT SPECIALIST Gender Identity Female 02/07/2021 4:33 PM CDT Sexual Orientation Straight 02/07/2021 4: 33 PM CDT documented as of this encounter Miscellaneous Notes * Telephone Encounter - Sheila Solomon RN - 05/13/2022 1:22 PM DATABASE MANAGEMENT SPECIALIST Received alert from aj that pt monitor was not transmitting data, asked our office to contact pt to reach out to aj. Spoke with Jaz who is going to call Aj to troubleshoot her monitor. BASE MANAGEMENT SPECIALIST documented in this encounter Plan of Treatment Not on file documented as of this encounter Visit Diagnoses Not on filedocumented in this encounter Care Teams Management Professor Relationship Specialty Start Date End Date Cristian Ling MD [address] [place] [address] PCP - General 10/16/16 documented as of this encounter
--- OUTSIDE RECORDS SUMMARY | 2024-06-12 04:33 | XMS_ITS | Encounter Summary ---
Author Organization [facility] Address [address] [place] [address] Phone Care Team Providers Care Gas Or Water Meter Installer Name Role Phone Cristian Ling MD [...] file Legal Sex Female 7:12 AM INSULATION SUPERVISOR Gender Identity Female 02/07/2021 4:33 PM CDT Sexual Orientation Straight 02/07/2021 4: 33 PM CDT documented as of this encounter Progress Notes * Sheila Solomon RN - 05/18/2022 11:59 PM CST See telephone enc 05/22. LATION SUPERVISOR documented in this encounter Plan of Treatment [...] filedocumented in this encounter Care Teams Gas Or Water Meter Installer Relationship Specialty Start Date End Date Cristian Ling MD [address] [place] [address] PCP - General 10/16/16 documented as of this encounter
--- OUTSIDE RECORDS SUMMARY | 2024-06-12 04:33 | XMS_ITS | Encounter Summary ---
Author Organization [facility] Address [address] [place] [address] Phone Care Team Providers Care Vp Emerging Media Name Role Phone Cristian Ling MD Primary Care Prov ider Encounter Details Date Type Department Care Team (Late st Contact Info) Description 03/28/2022 Telephone [facility] Orthopaedic Surgery [address] [place] [address] Jamari Rodríguez MD [address] [facility] [address] [place], [place] [id number] Social History Tobacco Use Types Packs/Day Years [...] on file Legal Sex Female 7:12 AM INSTRUMENTATION AND CONTROL TECHNICIAN Gender Identity Female 02/07/2021 4:33 PM [...] test prior to INJ. Pt is at [phone]. documented in this encounter Plan of Treatment Not on file documented as of this encounter Visit Diagnoses Not on filedocumented in this encounter Care Teams Vp Emerging Media Relationship Specialty Start Date End Date Cristian Ling MD [address] [place] [address] PCP - General 10/16/16 documented as of this encounter
--- OUTSIDE RECORDS SUMMARY | 2024-06-12 04:33 | XMS_ITS | Encounter Summary ---
Author Organization [facility] Healthcare Address [address] [place] [address] Care Team Providers Care Junior Staff Accountant Name Role Phone Cristian Ling MD Primary Care Prov ider Encounter Details Date Type Department Care Team (Late st Contact Info) Description 05/01/2022 1:00 PM PARTY PLAN DEALER Lab [facility] Advanced Medicine [facility] Advanced Medicine ([facility]) [address] [place] [phone] Primary hypertension Social History Tobacco Use Types [...] on file Legal Sex Female 7:12 AM PARTY PLAN DEALER Gender Identity Female 02/07/2021 4:33 PM CDT Sexual Orientation Straight 02/07/2021 4: 33 PM CDT documented as of this encounter Plan of Treatment Not on file documented as of this encounter Procedures Procedure Name Priority Date/Time Associated Diagnosis Comments EGFR Routine 05/01/2022 12:58 PM PARTY PLAN DEALER Primary hypertension BASIC METABOLIC PANEL Routine 05/01/2022 12:58 PM PARTY PLAN DEALER Primary hypertension documented in this encounter Results * (ABNORMAL) eGFR (05/01/2022 12:58 PM PARTY PLAN DEALER) Pathologist [facility] eGFR 45(L) 90 - 130 mL/min/1. 73 m2 [facility] Comment: Interpretive Data Reference Interval Normal [...] reviewed 2021. Blood 05/01/2022 12:5 8 PM PARTY PLAN DEALER 05/01/2022 1:13 PM PARTY PLAN DEALER us Sami Stafford MD LAB BLOOD ORDERABLES Final Re sult [facility] Department [place] [address] * (ABNORMAL) Basic metabolic panel (05/01/2022 12:58 PM PARTY PLAN DEALER) Sodium 140 135 - 145 mmol/L [facility] Potassium, pl 4.2 3.3 - 4.9 mmol/L [facility] Chloride 105 97 - 110 mmol/L [facility] CO2 27 22 - 32 mmol/L [facility] Anion gap 8 2 - 15 mmol/L [facility] BUN 17 8 - 25 mg/dL [facility] Creatinine 1.25(H) 0.60 - 1.10 mg/dL [facility] Glucose 87 70 - 199 mg/dL [facility] [...] 2017. Calcium 10.7(H) 8.5 - 10.3 mg/dL [facility] Blood 05/01/2022 12:5 8 PM PARTY PLAN DEALER 05/01/2022 1:13 PM PARTY PLAN DEALER us Sami Stafford MD LAB BLOOD ORDERABLES Final Re sult [facility] Department [place] [address] documented in this encounter Visit Diagnoses Diagnosis Primary hypertension Unspecified essential hypertension documented in this encounter Care Teams Junior Staff Accountant Relationship Specialty Start Date End Date Cristian Ling MD [address] [place] [address] PCP - General 10/16/16 documented as of this encounter
--- OUTSIDE RECORDS SUMMARY | 2024-06-12 04:33 | XMS_ITS | Encounter Summary ---
Author Organization [facility] Healthcare Address [address] [place] [address] Care Team Providers Care General Activities Therapist Name Role Phone Cristian Ling MD Primary Care Prov ider Reason for Referral * MRI/CAT/PET Scan (Routine) - Closed Specialty Diagnoses / Procedures Referred By Teaac t Referred To Contact Radiology Diagnoses Hypertrophic cardiomyopathy (CMS/HCC) (HCC) Palpitations Procedures MRI Cardiac M&F WO Contrast Sami Stafford MD [address] [address] Phone: tel: fax: [address] [phone] Referral ID Status Reason Start Date Expiration Date Visits Re quested Visits Authorized [id number] Closed 05/01/2022 05/31/2023 1 1 K UNLOADER Reason for Visit * MRI/CAT/PET Scan (Routine) - Closed Specialty Diagnoses / Procedures Referred By Contac t Referred To Contact Radiology Diagnoses Hypertrophic cardiomyopathy (CMS/HCC) (HCC) Palpitations Procedures MRI Cardiac M&F WO Contrast Sami Stafford MD [address] [address] Phone: tel: fax: [address] [phone] Referral ID Status Reason Start Date Expiration Date Visits Re quested Visits Authorized [id number] Closed 05/01/2022 05/31/2023 1 1 Encounter Details Date Type Department Care Team (Latest Contact Info) Description 07/25/2022 9:43 AM TRUCK UNLOADER - 07/25/2022 11:59 PM TRUCK UNLOADER Hospital Encounter [facility] [address] [place] [address] Hypertrophic cardiomyopathy (CMS/HCC) (HCC); Palpitations Discharge Disposition: [...] on file Legal Sex Female 7:12 AM TRUCK UNLOADER Gender Identity Female 02/07/2021 4:33 PM [...] Sami Stafford MD - 07/25/2022 10:00 AM TRUCK UNLOADER Reviewed cardiac MRI report. Unable to reach patient, left message on to call back. 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 No apical aneurysm. Mild pachy fibrosis. Normal LVEF. Plan: - continue metoprolol. - low threshold to stop clopidogrel if any bleeding as the mildly elevated troponin at [facility] in 03/2022 was in the setting of hypertensive urgency and may have been secondary to the HCM - will plan on yearly Holter monitors No other change to regimen at this time. K UNLOADER documented in this encounter Plan of Treatment Not on file documented as of this encounter Procedures Procedure Name Priority Date/Time Associated Diagnosis Comments MRI CARDIAC M&F WO CONTRAST Schedule Routine, Read Routine (OP Routine) 07/25/2022 10:54 AM TRUCK UNLOADER Hypertrophic cardiomyopathy (CMS/HCC) (HCC) Palpitations documented in this encounter Results * MRI Cardiac M&F WO Contrast (07/25/2022 10:54 AM TRUCK UNLOADER) Anatomical Region Laterality Modality Body N/A Magnetic Resonan ce 07/25/2022 1:33 PM TRUCK UNLOADER Impressions 07/26/2022 8:44 AM TRUCK UNLOADER 1. ??Findings consistent with apical variant hypertrophic [...] Phil Lewis M.D. Narrative 07/26/2022 8:44 AM TRUCK UNLOADER EXAMINATION: ??MRI CARDIAC M/T/F WO CONTRAST HISTORY: [...] no aortic stenosis and no aortic regurgitation. [place] T1 mapping demonstrates mildly increased signal throughout [...] no aortic stenosis and no aortic regurgitation. [place] T1 mapping demonstrates mildly increased signal throughout [...] Palpitations documented in this encounter Care Teams General Activities Therapist Relationship Specialty Start Date End Date Cristian Ling MD [address] [place] [address] PCP - General 10/16/16 documented as of this encounter
--- OUTSIDE RECORDS SUMMARY | 2024-06-12 04:33 | XMS_ITS | Encounter Summary ---
Author Organization [facility] Address [address] [place] [address] Phone Care Team Providers Care Barrel Straightener Name Role Phone Cristian Ling MD Primary [...] on file Legal Sex Female 7:12 AM DISCHARGING MACHINE OPERATOR Gender Identity Female 02/07/2021 4:33 PM CDT Sexual Orientation Straight 02/07/2021 4: 33 PM CDT documented as of this encounter Progress Notes * Sheila Solomon RN - 05/10/2022 11:59 PM CST See telephone encounter 05/13. HARGING MACHINE OPERATOR documented in this encounter Plan of Treatment [...] on filedocumented in this encounter Care Teams Barrel Straightener Relationship Specialty Start Date End Date Cristian Ling MD [address] [place] [address] PCP - General 10/16/16 documented as of this encounter
--- OUTSIDE RECORDS SUMMARY | 2024-06-12 04:33 | XMS_ITS | Encounter Summary ---
Author Organization [facility] Address [address] [place] [address] Phone Care Team Providers Care Ribbon Hanking Machine Operator Name Role Phone Cristian Ling MD Primary Care Prov ider Reason for Visit * Cardiology (Routine) - Closed Specialty Diagnoses / Procedures Referred By Contac t Referred To Contact Diagnoses Palpitations Procedures MCT Mobile Cardiac Telemetry Event Monitor Cisco Bender MD [address] [facility] [address] [place] [address] Phone: tel: fax: [address] [phone] Referral ID Status Reason Start Date Expiration Date Visits Re quested Visits Authorized [id number] Closed 05/01/2022 05/31/2023 1 1 Encounter Details Date Type Department Care Team (Late st Contact Info) Description 05/01/2022 12:30 PM SUPPLY PLANNER Ancillary Procedure [facility] Cardiology [facility] Advanced Medicine 8th [place] [address] [place] [address] Palpitations Social History Tobacco Use [...] on file Legal Sex Female 7:12 AM SUPPLY PLANNER Gender Identity Female 02/07/2021 4:33 PM CDT Sexual Orientation Straight 02/07/2021 4: 33 PM CDT documented as of this encounter Miscellaneous Notes * Result Encounter Note - Cisco Bender MD - 06/06/2022 3:47 PM SUPPLY PLANNER 30-day monitor: Paroxysmal afib with RVR. NSVT. Started on anticoagulation already. Would increase metoprolol xl to 25 mg daily. Await CMRI. LY PLANNER documented in this encounter Plan of Treatment Not on file documented as of this encounter Procedures Procedure Name Priority Date/Time Associated Diagnosis Comments [facility] - MOBILE CARDIAC TELEMETRY EVENT MONITOR Routine 05/01/2022 3:51 PM SUPPLY PLANNER Palpitations documented in this encounter Results * [facility] Mobile Cardiac Telemetry Event Monitor (05/01/2022 3:51 PM SUPPLY PLANNER) Anatomical Region Laterality Modality Electrocardiogra phy 05/01/2022 12:3 0 PM SUPPLY PLANNER Narrative 06/05/2022 10:11 AM SUPPLY PLANNER Patient name: Tiera Lobato Date of test: 05/01/2022 Type of Test: Event Monitor ([facility]) Hospital #: [id number] ?Location: [facility] Heart and Vascular : 1945 ??Age: 77 ??Sex: F Ref Physician(s): CISCO BENDER MD Interpreted by: Chris Clifford MD [facility] Tech: Cassy Mejia Lavonne Diagnosis: Monitoring Service: Preventice Reason for Test: R00.2: Palpitations Monitor Used: Body Guardian Heart (MCT) ?? Enrollment Period: May 01 - May 30, 2022 Hook-Up Tech comments: The device was applied by the central lab technician on this note. The patient was [...] The full scanned/data report is available in Psychiatric. labeled MONITOR STRIPS PDF . This study [...] test: 05/01/2022 Type of Test: Event Monitor ([facility]) Hospital #: [id number] Location: [facility] Heart and Vascular : 1945 Age: 77 Sex: F Ref Physician(s): CISCO BENDER MD Interpreted by: Chris Clifford MD Hook-Up Tech: CIARA Rao Diagnosis: Monitoring Service: Preventice Reason for Test: R00.2: Palpitations Monitor Used: Body Guardian Heart ([facility]) Enrollment Period: May 01 - May 30, 2022 Hook-Up Tech comments: The device was applied by the central lab technician on this note. The patient was [...] The full scanned/data report is available in SmartShoot. labeled MONITOR STRIPS PDF . This study [...] Palpitations documented in this encounter Care Teams Ribbon Hanking Machine Operator Relationship Specialty Start Date End Date Cristian Ling MD [address] [place] [address] PCP - General 10/16/16 documented as of this encounter
--- OUTSIDE RECORDS SUMMARY | 2024-06-12 04:33 | XMS_ITS | Encounter Summary ---
Author Organization [facility] Address [address] [place] [address] Phone Care Team Providers Care Reproductive Surgeon Name Role Phone Cristian Ling MD Primary Care Prov ider Encounter Details Date Type Department Care Team (Late st Contact Info) Description 05/01/2022 Orders Only [facility] Cardiology [address] [facility] Advanced Medicine 8th [place] [address] [place] [address] Sami Stafford MD [address] [facility] [address] [place], [place] [id number] Social History Tobacco Use Types Packs/Day Years [...] file Legal Sex Female 7:12 AM MANAGER FAMILY Gender Identity Female 02/07/2021 4:33 PM CDT Sexual Orientation Straight 02/07/2021 4: 33 PM CDT documented as of this encounter Plan of Treatment Not on file documented as of this encounter Visit Diagnoses Not on filedocumented in this encounter Care Teams Reproductive Surgeon Relationship Specialty Start Date End Date Cristian Ling MD [address] [place] [address] PCP - General 10/16/16 documented as of this encounter
--- OUTSIDE RECORDS SUMMARY | 2024-06-12 04:34 | XMS_ITS | Encounter Summary ---
Author Organization [facility] Healthcare Address [address] [place] [address] Care Team Providers Care Enroute Controller Name Role Phone Cristian Ling MD Primary Care Prov ider Reason for Visit * Diagnostic Imaging (Routine) - Closed Specialty Diagnoses / Procedures Referred By Paula cardona Referred To Contact Diagnoses Hip pain Procedures XR Hip Right 2 or 3 Views XR Hip Right 4 or More Views Maxx Pratt MD Phone: tel: fax: [address] [phone] Referral ID Status Reason Start Date Expiration Date Visits Re quested Visits Authorized [id number] Closed 11/22/2021 12/22/2022 1 1 Encounter Details Date Type Department Care Team (Latest Contact Info) Description 11/22/2021 2:56 PM CDT - 11/22/2021 11:59 PM CDT Hospital Encounter [facility] - Imaging [address] [place] [address] Hip pain Discharge Disposition: Discharge [...] on file Legal Sex Female 7:12 AM MILL CONTROLLER Gender Identity Female 02/07/2021 4:33 PM CDT [...] thigh documented in this encounter Care Teams Enroute Controller Relationship Specialty Start Date End Date Cristian Ling MD [address] [place] [address] PCP - General 10/16/16 documented as of this encounter
--- OUTSIDE RECORDS SUMMARY | 2024-06-12 04:34 | XMS_ITS | Encounter Summary ---
Author Organization [facility] Address [address] [place] [address] Phone Care Team Providers Care Forging Press Lever Tender Name Role Phone Cristian Ling MD Primary Care Prov ider Reason for Visit * Reason Onset Date Comments Scheduling Appointments 01/24/2021 Encounter Details Date Type Department Care Team (Late st Contact Info) Description 01/24/2021 Telephone [facility] Cardiology [address] [facility] Advanced Medicine 8th [place] [address] [place] [address] Sami Stafford MD [address] [facility] [address] [place] [address] Scheduling Appointments Social History Tobacco [...] on file Legal Sex Female 7:12 AM EXCELLENCE MANAGER Gender Identity Female 02/07/2021 4:33 PM [...] on filedocumented in this encounter Care Teams Forging Press Lever Tender Relationship Specialty Start Date End Date Cristian Ling MD [address] [place] [address] PCP - General 10/16/16 documented as of this encounter
--- OUTSIDE RECORDS SUMMARY | 2024-06-12 04:34 | XMS_ITS | Encounter Summary ---
Author Organization [facility] Address [address] [facility] [address] [place] [address] Care Team Providers Care Wire Communications Engineer Name Role Phone Cristian Ling MD Primary Care Prov ider Reason for Visit * Reason Comments Pain * Consultation (Routine) - Closed Specialty Diagnoses / Procedures Referred By Paula cardona Referred To Contact Orthopedic Surgery Diagnoses Left sided sciatica Cristian Ling MD [address] [place] [address] Phone: tel: fax: Maxx Pratt MD Phone: tel: fax: Referral ID Status Reason Start Date Expiration Date V isits Requested Visits Authorized [id number] Closed Specialty Services Required 01/26/2021 04/20/2022 3 3 Encounter Details Date Type Department Care Team (Late st Contact Info) Description 01/30/2021 11:30 AM CDT Office Visit [facility] [address] [facility] [address] [place] [address] Maxx Pratt MD [address] [facility] [address] [place] [address] Lumbar stenosis with neurogenic claudication [...] on file Legal Sex Female 7:12 AM SPICE GRINDER Gender Identity Female 02/07/2021 4:33 PM CDT [...] provider's office for clarification. Maxx Pratt MD, [facility] Neurological Surgery documented in this encounter Miscellaneous [...] 2020 documented in this encounter Care Teams Wire Communications Engineer Relationship Specialty Start Date End Date Cristian Ling MD [address] [place] [address] PCP - General 10/16/16 documented as of this encounter
--- OUTSIDE RECORDS SUMMARY | 2024-06-12 04:34 | XMS_ITS | Encounter Summary ---
Author Organization [facility] Address [address] [place] [address] Phone Care Team Providers Care Supervisor [employer] Name Role Phone Cristian Ling MD Primary Care Prov ider Encounter Details Date Type Department Care Team (Late st Contact Info) Description 11/22/2020 Telephone [facility] Cardiology [address] [facility] Advanced [facility] 8th [place] [address] [place] [address] Sami Stafford MD [address] [facility] [address] [place], [place] [id number] Social History Tobacco Use Types Packs/Day Years [...] on file Legal Sex Female 7:12 AM SULKY DRIVER Gender Identity Female 02/07/2021 4:33 PM [...] they need clearance faxed to them at [phone]. * Telephone Encounter - Deepali Jung RN [...] and she says Dr. Reddy Faith from [facility] will be needing cardiac clearance Office Pt is wondering if there is anything she needs to do to prepare for this procedure documented in this encounter Plan of Treatment Not on file documented as of this encounter Visit Diagnoses Not on filedocumented in this encounter Care Teams Supervisor [employer] Relationship Specialty Start Date End Date Cristian Ling MD [address] [place] [address] PCP - General 10/16/16 documented as of this encounter
--- OUTSIDE RECORDS SUMMARY | 2024-06-12 04:34 | XMS_ITS | Encounter Summary ---
Author Organization [facility] Address [address] [facility] [address] [place] [address] Care Team Providers Care Human Resources Compliance Manager Name Role Phone Cristian Ling MD Primary Care Prov ider Encounter Details Date Type Department Care Team (Late st Contact Info) Description 10/03/2020 Documentation [facility] [place] [address] [facility] [address] [place] [address] Maxx Pratt MD [address] [facility] [address] [place] [address] Social History Tobacco Use Types [...] on file Legal Sex Female 7:12 AM YOUTH SERVICES LIBRARIAN Gender Identity Female 02/07/2021 4:33 PM CDT Sexual Orientation Straight 02/07/2021 4: 33 PM CDT documented as of this encounter Progress Notes * Elodia Baker - 10/03/2020 2:09 PM CDT Lumbar MRI CD from [facility] mailed back to patient. documented in this encounter Plan of Treatment Not on file documented as of this encounter Visit Diagnoses Not on filedocumented in this encounter Care Teams Human Resources Compliance Manager Relationship Specialty Start Date End Date Cristian Ling MD [address] [place] [address] PCP - General 10/16/16 documented as of this encounter
--- OUTSIDE RECORDS SUMMARY | 2024-06-12 04:34 | XMS_ITS | Encounter Summary ---
Author Organization [facility] Address [address] [facility] [address] [place] [address] Care Team Providers Care Clinical Aide Name Role Phone Cristian Ling MD Primary Care Prov ider Reason for Visit * Consultation (Routine) - Closed Specialty Diagnoses / Procedures Referred By Paula cardona Referred To Contact Orthopedic Surgery Diagnoses Left sided sciatica Cristian Ling MD [address] [place] [address] Phone: tel: fax: Maxx Pratt MD Phone: tel: fax: Referral ID Status Reason Start Date Expiration Date V isits Requested Visits Authorized [id number] Closed Specialty Services Required 01/26/2021 04/20/2022 3 3 Encounter Details Date Type Department Care Team (Late st Contact Info) Description 03/07/2021 11:00 AM CDT Telemedicine [facility] [address] [facility] [address] [place] [address] Maxx Pratt MD [address] [facility] [address] [place] [address] Other osteoporosis without current pathological [...] on file Legal Sex Female 7:12 AM BIKE TECHNICIAN Gender Identity Female 02/07/2021 4:33 PM [...] located in the office of [facility] ([address] [place] [address]) and the patient was located at home. Total time spent in chart review, video teleconferencing and documentation was 15 minutes. Patient consented to the consultation via telephone prior to the call. The patient has been informed that the visit may not be secure and acknowledged the information. I have explained the option of participating in a telephone or video visit during the [facility] to the patient. [...] Primary documented in this encounter Care Teams Clinical Aide Relationship Specialty Start Date End Date Cristian Ling MD [address] [place] [address] PCP - General 10/16/16 documented as of this encounter
--- OUTSIDE RECORDS SUMMARY | 2024-06-12 04:34 | XMS_ITS | Encounter Summary ---
Author Organization [facility] Address [address] [facility] [address] [place] [address] Care Team Providers Care Network Engineer Administrator Name Role Phone Cristian Ling MD Primary Care Prov ider Encounter Details Date Type Department Care Team (Late st Contact Info) Description 10/05/2021 Telephone [facility] [place] [address] [facility] [address] [place] [address] Maxx Pratt MD [address] [facility] [address] [place] [address] Social History Tobacco Use Types [...] on file Legal Sex Female 7:12 AM AIR TABLE OPERATOR Gender Identity Female 02/07/2021 4:33 PM [...] know if she wants to see the MANAGER CUSTOMER. * Telephone Encounter - Tammy Peres - 10/05/2021 9:54 AM CDT Patient call stated having concerns about back and would like call back documented in this encounter Plan of Treatment Not on file documented as of this encounter Visit Diagnoses Not on filedocumented in this encounter Care Teams Network Engineer Administrator Relationship Specialty Start Date End Date Cristian Ling MD [address] [place] [address] PCP - General 10/16/16 documented as of this encounter
--- OUTSIDE RECORDS SUMMARY | 2024-06-12 04:34 | XMS_ITS | Encounter Summary ---
Author Organization [facility] Address [address] [place] [address] Phone Care Team Providers Care Metal Crafts Teacher Name Role Phone Cristian Ling MD Primary Care Prov ider Encounter Details Date Type Department Care Team (Late st Contact Info) Description 05/07/[address] [facility] Cardiology [address] [facility] Advanced [facility] 8th [place] [address] [place] [address] Sami Stafford MD [address] [facility] [address] [place], [place] [id number] Social History Tobacco Use Types Packs/Day Years [...] file Legal Sex Female 7:12 AM ASSISTANT CURATOR Gender Identity Female 02/07/2021 4:33 PM CDT Sexual Orientation Straight 02/07/2021 4: 33 PM CDT documented as of this encounter Miscellaneous Notes * Telephone Encounter - Deepali uJng RN - 05/07/2021 1:36 PM ASSISTANT CURATOR 05/07- faxed to PCP office STANT CURATOR * Telephone Encounter - Jody Gupta - 05/07/2021 12:56 PM CST Rivera Pt states she Dr. Stafford to send a Fax to Dr. Pollard for Bone and mineral for a referral to Dr. Piper Cantu. Please call if questions. STANT CURATOR documented in this encounter Plan of Treatment Not on file documented as of this encounter Visit Diagnoses Not on filedocumented in this encounter Care Teams Metal Crafts Teacher Relationship Specialty Start Date End Date Cristian Ling MD [address] [place] [address] PCP - General 10/16/16 documented as of this encounter
--- OUTSIDE RECORDS SUMMARY | 2024-06-12 04:34 | XMS_ITS | Encounter Summary ---
Author Organization [facility] Address [address] [place] [address] Phone Care Team Providers Care Buildings And Grounds Director Name Role Phone Cristian Ling MD Primary Care Prov ider Encounter Details Date Type Department Care Team (Late st Contact Info) Description 11/28/2020 Telephone [facility] Cardiology [address] [facility] 8th [place] [address] [place] [address] Sami Stafford MD [address] [facility] [address] [place], [place] [id number] Social History Tobacco Use Types Packs/Day Years [...] file Legal Sex Female 7:12 AM SOCIAL MEDIA MANAGER Gender Identity Female 02/07/2021 4:33 PM [...] on filedocumented in this encounter Care Teams Buildings And Grounds Director Relationship Specialty Start Date End Date Cristian Ling MD [address] [place] [address] PCP - General 10/16/16 documented as of this encounter
--- OUTSIDE RECORDS SUMMARY | 2024-06-12 04:34 | XMS_ITS | Encounter Summary ---
Author Organization [facility] Address [address] [place] [address] Phone Care Team Providers Care Technical Service Rep Name Role Phone Cristian Ling MD Primary Care Prov ider Encounter Details Date Type Department Care Team (Late st Contact Info) Description 05/08/[address] [facility] Cardiology [address] [facility] 8th [place] [address] [place] [address] Sami Stafford MD [address] [facility] [address] [place], [place] [id number] Social History Tobacco Use Types Packs/Day Years [...] on file Legal Sex Female 7:12 AM NON DESTRUCTIVE TESTING SUPERVISOR Gender Identity Female 02/07/2021 4:33 PM CDT Sexual Orientation Straight 02/07/2021 4: 33 PM CDT documented as of this encounter Miscellaneous Notes * Telephone Encounter - Deepali Jung, RN - 05/08/2021 2:22 PM NON DESTRUCTIVE TESTING SUPERVISOR 05/08- Pt did not read portal message, I discussed lab results with her and informed her PCP did receive referral for Dr. Cantu, and he sent a message back DESTRUCTIVE TESTING SUPERVISOR * Telephone Encounter - Millicent Laguna - 05/08/2021 11:28 AM CST johnny Pt would like to discuss her lab results with a nurse, she also says that her pcp did not receive the fax deepali sent yesterday, she confirms the phone number on file for dr higgins is correct butshe doesn't have their fax DESTRUCTIVE TESTING SUPERVISOR documented in this encounter Plan of Treatment Not on file documented as of this encounter Visit Diagnoses Not on filedocumented in this encounter Care Teams Technical Service Rep Relationship Specialty Start Date End Date Cristian Ling MD [address] [place] [address] PCP - General 10/16/16 documented as of this encounter
--- OUTSIDE RECORDS SUMMARY | 2024-06-12 04:34 | XMS_ITS | Encounter Summary ---
Author Organization [facility] Address [address] [place] [address] Phone Care Team Providers Care Upholsterer Outside Name Role Phone Cristian Ling MD Primary Care Prov ider Encounter Details Date Type Department Care Team (Late st Contact Info) Description 12/26/2020 Telephone [facility] Cardiology [address] [facility] 8th [place] [address] [place] [address] Jeniffer Moore Social History Tobacco [...] on file Legal Sex Female 7:12 AM UNISHEAR OPERATOR Gender Identity Female 02/07/2021 4:33 PM [...] can move her to the a.m. at [facility]? Thanks. * Telephone Encounter - Viki Faith [...] on filedocumented in this encounter Care Teams Upholsterer Outside Relationship Specialty Start Date End Date Cristian Ling MD [address] [place] [address] PCP - General 10/16/16 documented as of this encounter
--- OUTSIDE RECORDS SUMMARY | 2024-06-12 04:34 | XMS_ITS | Encounter Summary ---
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; Essential hypertension Social [...] on file Legal Sex Female 7:12 AM COTTON GINNER HELPER Gender Identity Female 02/07/2021 4:33 PM CDT Sexual Orientation Straight 02/07/2021 4: 33 PM CDT documented as of this encounter Plan of Treatment Not on file documented as of this encounter Procedures Procedure Name Priority Date/Time Associated Diagnosis Comments LIPID PANEL Routine 05/02/2021 11:19 AM COTTON GINNER HELPER 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
--- OUTSIDE RECORDS SUMMARY | 2024-06-12 04:34 | XMS_ITS | Encounter Summary ---
Author Organization [facility] Address [address] [place] [address] Phone Care Team Providers Care Track Template Maker Name Role Phone Cristian Ling MD Primary Care Prov ider Encounter Details Date Type Department Care Team (Late st Contact Info) Description 05/02/2021 10:15 AM ADMINISTRATIVE SUPPORT ASSOC Office Visit [facility] Cardiology [address] [facility] 8th [address] [place] [id number] Sami Stafford MD [address] [facility] [address] [place], [place] [phone] Coronary artery disease involving [place] coronary artery of [place] heart without angina pectoris (Primary Dx); Essential [...] Legal Sex Female 7:12 AM ADMINISTRATIVE SUPPORT ASSOC Gender Identity Female 02/07/2021 4:33 PM CDT Sexual Orientation Straight 02/07/2021 4: 33 PM CDT documented as of this encounter Last Filed Vital Signs Vital Sign Reading Time Taken Comments Blood Pressure 150/78 05/02/2021 10:26 AM ADMINISTRATIVE SUPPORT ASSOC Pulse 62 05/02/2021 10:26 AM ADMINISTRATIVE SUPPORT ASSOC Temperature 36.7 ??C (98.1 ??F) 05/02/2021 1 0:26 AM ADMINISTRATIVE SUPPORT ASSOC Respiratory Rate - - Oxygen Saturation 95% 05/02/2021 10: 26 AM ADMINISTRATIVE SUPPORT ASSOC Inhaled Oxygen Concentration - - Weight 80.2 kg (176 lb 12.8 oz) 021 10:26 AM ADMINISTRATIVE SUPPORT ASSOC Height - - Body Mass Index 31.32 09/28/2020 1:48 PM CDT documented in this encounter Patient Instructions * Patient Instructions* Sami Stafford MD - 05/02/2021 10:15 AM ADMINISTRATIVE SUPPORT ASSOC Referral to Dr. Yaritza Cantu for osteoporosis management. Periodically check your blood pressure. Let me know if it is consistently >135/80 mm Hg. NISTRATIVE SUPPORT ASSOC NISTRATIVE SUPPORT ASSOC documented in this encounter Progress Notes * Sami Stafford MD - 05/02/2021 10:15 AM CST Images from the original note were not included. Department of Medicine Sami Stafford MD, MPHS, [facility] Cardiovascular Division lead ramp service man Patient Name: Tiera Lobato : 1945 Date [...] in I, aVL, V3-6, normal axis, normal UT, QRS and QT intervals. Assessment/Plan: Tiera Lobato is a 76 y.o. female with the followin. CAD with prior SD and CABG in 2012 ([facility]WSON-LAD, SVG-OM). She [...] concerns. Sincerely, Sami Stafford MD, MPHS, FACC lead ramp service man Cardiovascular Division [facility] in [facility] --- Please note: This note was generated in part using voice-recognition software and may contain rivet heater errors. NISTRATIVE SUPPORT ASSOC documented in this encounter Plan of Treatment Not on file documented as of this encounter Results * Lipid panel (05/02/2021 11:19 AM ADMINISTRATIVE SUPPORT ASSOC) Triglycerides 127 0 - 149 mg/dL [facility] Comment: NATIONAL CHOLESTEROL EDUCATION PROGRAM ATP III GUIDELINES FOR ADULTS: Normal: ?<150 mg/dL Borderline High: 150-199 mg/dL High: ?200-499 mg/dL Very High: ? >=500 mg/dL Total Cholesterol 174 0 - 199 mg/dL [facility] Comment: NATIONAL CHOLESTEROL EDUCATION PROGRAM ATP III GUIDELINES FOR ADULTS: Desirable: ? <200 mg/dL Borderline High: 200-239 mg/dL High: ?>=240 mg/dL Total HDL-C Direct 56 >39 mg/dL [facility] Comment: NATIONAL CHOLESTEROL EDUCATION PROGRAM ATP III GUIDELINES FOR ADULTS: Optimal: ?>=60 mg/dL Near Optimal: 40-59 mg/dL High Risk: ?<40 mg/dL [place] LDL Chol 93 0 - 129 mg/dL [facility] Comment: NATIONAL CHOLESTEROL EDUCATION PROGRAM ATP III GUIDELINES FOR ADULTS: Optimal: ? <100 mg/dL Near Optimal: ?100-129 mg/dL Borderline High: 130-159 mg/dL High: ?160-189 mg/dL Very High: ? >=190 mg/dL Blood specimen (specimen) 05/02/2021 11:19 AM ADMINISTRATIVE SUPPORT ASSOC 05/02/2021 12:04 PM ADMINISTRATIVE SUPPORT ASSOC us Sami Stafford MD LAB BLOOD ORDERABLES Final Re sult [facility] * (ABNORMAL) Basic metabolic panel (05/02/2021 11:19 AM ADMINISTRATIVE SUPPORT ASSOC) Glucose 99 64 - 99 mg/dL [facility] Comment: NONFASTING GLUCOSE RANGE = [...] 04/30/21. Blood specimen (specimen) 05/02/2021 11:19 AM ADMINISTRATIVE SUPPORT ASSOC 05/02/2021 12:04 PM ADMINISTRATIVE SUPPORT ASSOC us Sami Stafford MD LAB BLOOD ORDERABLES Final Re sult [facility] documented in this encounter Visit Diagnoses Diagnosis Coronary artery disease involving [place] coronary artery of [place] heart without angina pectoris- Primary Essential hypertension Unspecified essential hypertension Other osteoporosis, unspecified pathological fracture presence documented in this encounter Care Teams Track Template Maker Relationship Specialty Start Date End Date Cristian Ling MD [address] [place] [address] PCP - General 10/16/16 documented as of this encounter
--- OUTSIDE RECORDS SUMMARY | 2024-06-12 04:34 | XMS_ITS | Encounter Summary ---
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 Dobbs does not take her ins. Faxed referral & clinical to [facility], they will call patient to [facility] appt. Pt is aware. documented in this encounter Plan of Treatment Not on file documented as of this encounter Visit Diagnoses Diagnosis Lumbar stenosis with neurogenic claudication- Primary documented in this encounter Care Teams Database Administration Manager Relationship Specialty Start Date End Date Cristian Ling MD [address] [place] [address] PCP - General 10/16/16 documented as of this encounter
--- OUTSIDE RECORDS SUMMARY | 2024-06-12 04:34 | XMS_ITS | Encounter Summary ---
Author Organization [facility] Address [address] [place] [address] Care Team Providers Care Therapeutic Strategy Lead Name Role Phone Cristian Ling MD Primary Care Prov ider Reason for Referral * Diagnostic Imaging (Routine) - Closed Specialty Diagnoses / Procedures Referred By Contac t Referred To Contact Diagnoses Lumbar stenosis with neurogenic claudication Procedures XR Spine Lumbar Flex Ext Only 2 Views Maxx Pratt MD Phone: tel: fax: [place] [address] [place] [address] Referral ID Status Reason Start Date Expiration Date Visits Re quested Visits Authorized [id number] Closed 10/03/2020 11/02/2021 1 1 Reason for Visit * Diagnostic Imaging (Routine) - Closed Specialty Diagnoses / Procedures Referred By Contac t Referred To Contact Diagnoses Lumbar stenosis with neurogenic claudication Procedures XR Spine Lumbar Flex Ext Only 2 Views Maxx Pratt MD Phone: tel: fax: [place] [address] [place] [address] Referral ID Status Reason Start Date Expiration Date Visits Re quested Visits Authorized [id number] Closed 10/03/2020 11/02/2021 1 1 Encounter Details Date Type Department Care Team (Latest Contact Info) Description 01/30/2021 10:36 AM CDT - 01/30/2021 11:59 PM CDT Hospital Encounter [facility] [address] [place] [address] Lumbar stenosis with neurogenic claudication [...] on file Legal Sex Female 7:12 AM PLC PROGRAMMER Gender Identity Female 02/07/2021 4:33 PM CDT [...] claudication documented in this encounter Care Teams Therapeutic Strategy Lead Relationship Specialty Start Date End Date Cristian Ling MD [address] [place] [address] PCP - General 10/16/16 documented as of this encounter
--- OUTSIDE RECORDS SUMMARY | 2024-06-12 04:34 | XMS_ITS | Encounter Summary ---
Author Organization [facility] Address [address] [facility] [address] [place] [address] Care Team Providers Care Senior Net Software Developer Name Role Phone Cristian Ling MD Primary Care Prov ider Reason for Referral * Consultation (Routine) - Closed Specialty Diagnoses / Procedures Referred By Contact Referred To Contact Physical Medicine and Rehabilitation Diagnoses Right hip pain Maxx Pratt MD Phone: tel: fax: Jamari Orellana MD [address] [facility] [address] [place] [address] Phone: tel: fax: Referral ID Status Reason Start Date Expiration Date V isits Requested Visits Authorized [id number] Closed Specialty Services Required 11/28/2021 12/28/2022 1 1 Question Answer Please select the performing region: [facility] (All Locations) [[id number]] To provider: JAMARI ORELLANA [[id number]] # of visits: 1 Comments EVALUATION/TREATMENT RIGHT HIP Encounter Details Date Type Department Care Team (Late st Contact Info) Description 11/28/2021 Orders Only [facility] [place] [address] [place] [address] Maxx Pratt MD [address] [facility] [address] [place] [address] Right hip pain (Primary Dx) [...] on file Legal Sex Female 7:12 AM HOB GRINDER Gender Identity Female 02/07/2021 4:33 PM CDT Sexual Orientation Straight 02/07/2021 4: 33 PM CDT documented as of this encounter Progress Notes * Elodia Baker - 11/28/2021 9:28 AM CDT Order in [facility]. Orellana will call patient to [facility] appt. Pt is aware. documented in this encounter Plan of Treatment Scheduled Referrals Name Type Priority Associated Diagnoses Order Schedule Ambulatory referral to Orthopedic Physiatry Outpatient Referral Routine Right hip pain Expected: 11/28/2021 (Approximate), Expires: 11/28/2022 documented as of this encounter Visit Diagnoses Diagnosis Right hip pain- Primary Pain in joint, pelvic region and thigh documented in this encounter Care Teams Senior Net Software Developer Relationship Specialty Start Date End Date Cristian Ling MD [address] [place] [address] PCP - General 10/16/16 documented as of this encounter
--- OUTSIDE RECORDS SUMMARY | 2024-06-12 04:34 | XMS_ITS | Encounter Summary ---
Author Organization [facility] Address [address] [facility] [address] [place] [address] Care Team Providers Care Care Asst Name Role Phone Cristian Ling MD Primary Care Prov ider Reason for Visit * Reason Comments Pain Encounter Details Date Type Department Care Team (Late st Contact Info) Description 11/22/2021 1:00 PM CDT Office Visit [facility] [place] [address] [place] [address] Maxx Pratt MD [address] [facility] [address] [place] [address] Right hip pain (Primary Dx) [...] on file Legal 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
--- OUTSIDE RECORDS SUMMARY | 2024-06-12 04:34 | XMS_ITS | Encounter Summary ---
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 Copy of order mailed to patient. Pt is aware. documented in this encounter Plan of Treatment Not on file documented as of this encounter Visit Diagnoses Not on filedocumented in this encounter Care Teams French Folder Relationship Specialty Start Date End Date Cristian Ling MD [address] [place] [address] PCP - General 10/16/16 documented as of this encounter
--- OUTSIDE RECORDS SUMMARY | 2024-06-12 04:34 | XMS_ITS | Encounter Summary ---
Author Organization [facility] Address [address] [facility] [address] [place] [address] Care Team Providers Care Bridge Crane Operator Name Role Phone Cristian Ling MD Primary Care Prov ider Reason for Referral * MRI/CAT/PET Scan (Routine) - Closed Specialty Diagnoses / Procedures Referred By Contac t Referred To Contact Radiology Procedures MRI Lumbar Spine WO Contrast [facility] [place] [address] [facility] [address] [place] [address] Phone: tel: fax: Referral ID Status Reason Start Date Expiration Date Visits Re quested Visits Authorized [id number] Closed 10/03/2020 11/02/2021 1 1 Reason for Visit * Reason Comments Pain * Consultation (Routine) - Closed Specialty Diagnoses / Procedures Referred By Contac t Referred To Contact Orthopedic Surgery Diagnoses Left sided sciatica Cristian Ling MD [address] [place] [address] Phone: tel: fax: Maxx Pratt MD [address] [facility] [address] [place] [address] Phone: tel: fax: Referral ID Status Reason Start Date Expiration Date V isits Requested Visits Authorized [id number] Closed Specialty Services Required 09/28/2020 12/18/2020 3 3 Encounter Details Date Type Department Care Team (Late st Contact Info) Description 09/28/2020 1:30 PM CDT Office Visit [facility] [place] [address] [facility] [address] [place] [address] Maxx Pratt MD [address] [address] [place] [address] Lumbar stenosis with neurogenic claudication [...] on file Legal Sex Female 7:12 AM AMMONIA REFRIGERATION 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 Treating MD'S: Dr. Cristian Pollard (PCP/referral), Dr. [...] - [facility] ??? MICRODISCECTOMY 1998 Dr. James ([place], [place]) ??? TOTAL KNEE ARTHROPLASTY Right 2018 [...] not thoroughly reviewed; it is subject to department operations manager variance. Maxx Pratt MD, FAANS documented in [...] 2020 documented in this encounter Care Teams Bridge Crane Operator Relationship Specialty Start Date End Date Cristain Ling MD [address] [place] [address] PCP - General 10/16/16 documented as of this encounter
--- OUTSIDE RECORDS SUMMARY | 2024-06-12 04:34 | XMS_ITS | Encounter Summary ---
Author Organization [facility] Address [address] [facility] [address] [place] [address] Care Team Providers Care Diversity Specialist Name Role Phone Cristian Ling MD Primary Care Prov ider Reason for Referral * Diagnostic Imaging (Routine) - Closed Specialty Diagnoses / Procedures Referred By Contac t Referred To Contact Diagnoses Lumbar stenosis with neurogenic claudication Procedures XR Spine Lumbar Flex Ext Only 2 Views Maxx Pratt MD Phone: tel: fax: 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 Dobbs they will call patient to [facility] appt. Order in [facility] for DEXA scan [facility] will call to [facility] appt. Pt is aware. documented in this [...] claudication documented in this encounter Care Teams Diversity Specialist Relationship Specialty Start Date End Date Cristian Ling MD [address] [place] [address] PCP - General 10/16/16 documented as of this encounter
--- OUTSIDE RECORDS SUMMARY | 2024-06-12 04:34 | XMS_ITS | Encounter Summary ---
Author Organization [facility] Address [address] [place] [address] Phone Care Team Providers Care Photographic Reproduction Technician Name Role Phone Cristian Ling MD Primary Care Prov ider Encounter Details Date Type Department Care Team (Late st Contact Info) Description 08/31/2020 Telephone [facility] Neurosurgery [address] [facility] 6th [place] [address] [place] [address] Urvashi Haney BS Social History Tobacco Use Types Packs/Day Years Used Date Smoking Tobacco: Never Smokeless Tobacco: Never Comments Unknown Sex and Gender Information Value Date Recorded Sex Assigned at Not on file 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
--- OUTSIDE RECORDS SUMMARY | 2024-06-12 04:34 | XMS_ITS | Encounter Summary ---
Author Organization [facility] Address [address] [place] [address] Care Team Providers Care Faculty Dean Name Role Phone Cristian Ling MD Primary [...] Expiration Date Visits Re quested Visits Authorized [id number] Closed 01/30/2021 03/01/2022 1 1 Encounter Details Date Type Department Care Team (Late st Contact Info) Description 01/30/2021 Orders Only [facility] [place] [address] [facility] [address] [place] [address] Maxx Pratt MD [address] [place] [address] Age-related bone loss (Primary Dx); [...] file Legal Sex Female 7:12 AM PRODUCTION AIDE Gender Identity Female 02/07/2021 4:33 PM CDT [...] site documented in this encounter Care Teams Faculty Dean Relationship Specialty Start Date End Date Cristian Ling MD [address] [place] [address] PCP - General 10/16/16 documented as of this encounter
--- OUTSIDE RECORDS SUMMARY | 2024-06-12 04:34 | XMS_ITS | Encounter Summary ---
Author Organization [facility] Address [address] [place] [address] Phone Care Team Providers Care Postbed Stitcher Name Role Phone Cristian Ling MD Primary Care Prov ider Reason for Visit * Reason Onset Date Comments Med Refill 01/03/2020 Encounter Details Date Type Department Care Team (Late st Contact Info) Description 01/03/2020 Telephone [facility] Cardiology [address] [address]th [place] [address] [place] [address] Jeniffer Moore Med Refill Social History Tobacco Use Types Packs/Day Years Used Date Smoking Tobacco: Never Smokeless Tobacco: Never Comments Unknown Sex and Gender Information Value Date Recorded Sex Assigned at Not on file 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
--- OUTSIDE RECORDS SUMMARY | 2024-06-12 04:34 | XMS_ITS | Encounter Summary ---
Author Organization [facility] Address [address] [place] [address] Phone Care Team Providers Care Ed Case Manager Name Role Phone Cristian Ling MD Primary Care Prov ider Encounter Details Date Type Department Care Team (Late st Contact Info) Description 01/06/2020 Telephone [facility] Cardiology [address] [facility] 8th [place] [address] [place] [address] Sami Stafford MD [address] [facility] [address] [place], [place] [id number] Social History Tobacco Use Types Packs/Day Years Used Date Smoking Tobacco: Never Smokeless Tobacco: Never Comments Unknown Sex and Gender Information Value Date Recorded Sex Assigned at Not on file 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
--- OUTSIDE RECORDS SUMMARY | 2024-06-12 04:34 | XMS_ITS | Encounter Summary ---
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 Patient verbalizes understanding. Phone number for Neurosurgery at [facility] given to the patient to call [...] Density Results Received Bone Density results from [facility] dated 02/07/21 for your review and further recommendations. Thanks. documented in this encounter Plan of Treatment Not on file documented as of this encounter Visit Diagnoses Not on filedocumented in this encounter Care Teams Search Planner Relationship Specialty Start Date End Date Cristian Ling MD [address] [place] [address] PCP - General 10/16/16 documented as of this encounter
--- OUTSIDE RECORDS SUMMARY | 2024-06-12 04:34 | XMS_ITS | Encounter Summary ---
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
--- OUTSIDE RECORDS SUMMARY | 2024-06-12 04:34 | XMS_ITS | Encounter Summary ---
Author Organization [facility] Address [address] [place] [address] Phone Care Team Providers Care Clinical Rehabilitation Aide Name Role Phone Cristian Ling MD Primary Care Prov ider Encounter Details Date Type Department Care Team (Late st Contact Info) Description 01/05/2020 Telephone [facility] Cardiology [address] [facility] 8th [place] [address] [place] [address] Sami Stafford MD [address] [facility] [address] [place], [place] [id number] Social History Tobacco Use Types Packs/Day Years Used Date Smoking Tobacco: Never Smokeless Tobacco: Never Comments Unknown Sex and Gender Information Value Date Recorded Sex Assigned at Not on file 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
--- OUTSIDE RECORDS SUMMARY | 2024-06-12 04:35 | XMS_ITS | Encounter Summary ---
Author Organization [facility] Address [address] [place] [address] Phone Care Team Providers Care Merchandise Collector Name Role Phone Cristian Ling MD Primary Care Prov ider Reason for Visit * Cardiology (Routine) - Closed Specialty Diagnoses / Procedures Referred By Contac t Referred To Contact Cardiology Diagnoses Appt Comment: 6MO F/U Procedures RETURN Sami Stafford MD Phone: tel: fax: Sami Stafford MD [address] [facility] [address] [place] [address] Phone: tel: fax: Referral ID Status Reason Start Date Expiration Date Visits Re quested Visits Authorized [id number] Closed 12/05/2017 03/15/2018 3 3 Encounter Details Date Type Department Care Team (Late st Contact Info) Description 12/10/2017 11:45 AM CDT Office Visit [facility] Cardiology [address] [facility] [address]th [place] [address] [place] [address] Sami Stafford MD [address] [facility] [address] [place] [address] Chronic coronary artery disease (Primary Dx); Essential hypertension Social History Tobacco Use Types Packs/Day Years Used Date Smoking Tobacco: Never Smokeless Tobacco: Never Comments Unknown Sex and Gender Information Value Date Recorded Sex Assigned at Not on file Legal Sex Female 7:12 AM SUPERVISORY TRAINING SPECIALIST Gender Identity Female 02/07/2021 4:33 PM [...] of further assistance. Sincerely, Agustina Valles MD typo machine operator 12/10/2017 I have seen and examined Tiera Lobato on 12/10/2017. I agree with the findings and plan of care as documented in the resident's/fellow's note. Sami Stafford MD, MPHS, FACC Spreader Operatorlace finisher Cardiovascular Division [facility] in [facility] --- Please note: This note was generated in part using voice-recognition software and may contain sheet metal assembler errors. documented in this encounter Plan of Treatment Not on file documented as of this encounter Visit Diagnoses Diagnosis Chronic coronary artery disease- Primary Coronary atherosclerosis of unspecified type of vessel, [place] or graft Essential hypertension Unspecified essential hypertension [...] 3 added in this encounter Care Teams Merchandise Collector Relationship Specialty Start Date End Date Cristian Ling MD [address] [place] [address] PCP - General 10/16/16 documented as of this encounter
--- OUTSIDE RECORDS SUMMARY | 2024-06-12 04:35 | XMS_ITS | Encounter Summary ---
Author Organization 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 Procedures ECG 12 lead Sami Stafford MD Phone: tel: fax: [facility] (All Locations) Referral ID Status Reason Start Date Expiration Date Visits Re quested Visits Authorized [id number] Closed 12/29/2019 07/09/2021 1 1 Reason for Visit * Cardiology (Routine) - Closed Specialty Diagnoses / Procedures Referred By Contac t Referred To Contact Cardiology Diagnoses Cardiovascular disease Cristian Ling MD [address] [place] [address] Phone: tel: fax: Sami Stafford MD [address] [address] Phone: tel: fax: Referral ID Status Reason Start Date Expiration Date V isits Requested Visits Authorized [id number] Closed Specialty Services Required 12/22/2019 03/23/2020 3 3 Encounter Details Date Type Department Care Team (Late st Contact Info) Description 12/29/2019 11:15 AM CDT Office Visit [facility] Cardiology [address] [facility] [address] 8th [place] [address] [place] [address] Sami Stafford MD 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 (Primary Dx); Cardiovascular disease; Essential hypertension; Other chest pain Social History Tobacco Use Types Packs/Day Years Used Date Smoking Tobacco: Never Smokeless Tobacco: Never Comments Unknown Sex and Gender Information Value Date Recorded Sex Assigned at Not on file Legal Sex Female 7:12 AM ADMINISTRATIVE OFFICE SPECIALIST Gender Identity Female 02/07/2021 4:33 PM [...] of Medicine Sami Stafford MD, MPHS, [facility] Cardiovascular Division Boiler Room Operatorcareer coordinator Patient Name: Tiera Lobato : 1945 Date [...] in I, aVL, V3-6, normal axis, normal [place], QRS and QT intervals. Assessment/Plan: Tiera Lobato [...] questions or concerns. Sincerely, Ricki Blancas MD crushing foreman Attending Attestation I have seen and examined [...] concerns. 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
--- OUTSIDE RECORDS SUMMARY | 2024-06-12 04:35 | XMS_ITS | Encounter Summary ---
Author Organization [facility] Address [address] [place] [address] Phone Care Team Providers Care Earth Sciences Professor Name Role Phone Cristian Ling MD Primary Care Prov ider Reason for Visit * Reason Onset Date Comments Med Refill 12/02/2019 Encounter Details Date Type Department Care Team (Late st Contact Info) Description 12/02/2019 Telephone [facility] Cardiology [address] [facility] 8th [place] [address] [place] [address] Jeniffer Moore Med Refill Social History Tobacco Use Types Packs/Day Years Used Date Smoking Tobacco: Never Smokeless Tobacco: Never Comments Unknown Sex and Gender Information Value Date Recorded Sex Assigned at Not on file Legal Sex Female 7:12 AM WATCH CRYSTAL EDGE GRINDER Gender Identity Female 02/07/2021 4:33 PM [...] documented as of this encounter Care Teams Earth Sciences Professor Relationship Specialty Start Date End Date Cristian Ling MD [address] [place] [address] PCP - General 10/16/16 documented as of this encounter
--- OUTSIDE RECORDS SUMMARY | 2024-06-12 04:35 | XMS_ITS | Encounter Summary ---
Author Organization [facility] Address [address] [place] [address] Phone Care Team Providers Care Non Profit Financial Controller Name Role Phone Cristian Ling MD Primary Care Prov ider Encounter Details Date Type Department Care Team (Late st Contact Info) Description 01/13/2019 Orders Only [facility] Cardiology [address] [facility] 8th [place] [address] [place] [address] Sami Stafford MD [address] [facility] [address] [place], [place] [id number] Essential hypertension (Primary Dx) Social History Tobacco Use Types Packs/Day Years Used Date Smoking Tobacco: Never Smokeless Tobacco: Never Comments Unknown Sex and Gender Information Value Date Recorded Sex Assigned at Not on file Legal Sex Female 7:12 AM SIZE MAKER Gender Identity Female 02/07/2021 4:33 PM [...] CDT) Glucose 103(H) 65 - 99 mg/dL [facility] [place] Comment: ? Fasting reference [...] approximately 13% higher for people identified as -Citizen Of [place]. eGFR NON-AFR. [place] 66 > OR = 60 mL/min/1 .73m2 [...] Agency Comment Performing Organization Information: ?Site ID: [id number] ?Name: [employer] ?Address: [address] [place] [address] [place] [address] ?Director: Leno Diehl D.O. MPH us Sami Stafford MD LAB BLOOD ORDERABLES Final Re sult [facility] [employer] [facility] [place], [place] documented in this encounter Visit Diagnoses Diagnosis Essential hypertension- Primary Unspecified essential hypertension documented in this encounter Care Teams Non Profit Financial Controller Relationship Specialty Start Date End Date Cristian Ling MD [address] [place] [address] PCP - General 10/16/16 documented as of this encounter
--- OUTSIDE RECORDS SUMMARY | 2024-06-12 04:35 | XMS_ITS | Encounter Summary ---
Author Organization [facility] Address [address] [place] [address] Phone Care Team Providers Care Material Stockkeeper Yard Name Role Phone Cristian Ling MD Primary Care Prov ider Encounter Details Date Type Department Care Team (Late st Contact Info) Description 01/08/2019 Telephone [facility] Cardiology [address] [facility] 8th [place] [address] [place] [address] Sami Stafford MD [address] [facility] [address] [place], [place] [id number] Social History Tobacco Use Types Packs/Day Years Used Date Smoking Tobacco: Never Smokeless Tobacco: Never Comments Unknown Sex and Gender Information Value Date Recorded Sex Assigned at Not on file Legal Sex Female 7:12 AM HEAD OF HISTORY Gender Identity Female 02/07/2021 4:33 PM CDT [...] will do BMP on Thursday 01/18 at [facility]. Order created and mailed to pt. [...] 19th [facility] at [facility] 140/[address] [...] on filedocumented in this encounter Care Teams Material Stockkeeper Yard Relationship Specialty Start Date End Date Cristian Ling MD [address] [place] [address] PCP - General 10/16/16 documented as of this encounter
--- OUTSIDE RECORDS SUMMARY | 2024-06-12 04:35 | XMS_ITS | Encounter Summary ---
Author Organization [facility]/Health system Facility Care Team Providers Care Pig Breeder Name Role Phone Unavailable Primary Care Provider Unavailabl e Encounter Details Date Type Department Care Team (Latest Contact Info) Description 09/04/2012 7:22 PM CDT - 09/21/2012 4:26 PM CDT Hospital Encounter [facility] Irineo Cee MD [address] [place] [address] Acute subendocardial infarction, initial episode of care (HCC); Acute posthemorrhagic anemia; Pulmonary collapse; Coronary atherosclerosis of ak chin coronary artery; Other and unspecified hyperlipidemia; Cough; [...] on file 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 Dictating: Nila Truong [...] Laws M.D. 11/04/2012 10:55 A Penelope Rod/gustavo #[id number] Editing MT: TD: 09/05/2012 06:02:00 cc: Penelope Santiago M.D. documented in this encounter Consult Notes * Provider, MD Fidel - 09/07/2012 12:00 AM CDT Patient: James Cueva Reg No: [id number] [facility] #: [id number] Admit Dt.: 09/04/2012 : 1945 Room No: 99518 Attending: Medicine Medicine Consulting: Irineo Reinoso M.D. [...] nondistended. Extremities: Her upper extremities have equal coordinator hotels strength. Her Narayan test is within normal limits on the left side. She has no clubbing, cyanosis or edema. Skin: Her skin shows no significant petechiae or lesions. She has significant spider veins on the right upper thigh. LABORATORY AND X-RAY DATA: Available for review include a cardiac catheterization which shows ostial circumflex and [id number] proximal left anterior descending disease. She has [...] Reinoso M.D. 09/25/2012 05:24 P Penelope Deutsch/opal #[id number] Editing MT: TD: 09/08/2012 20:35:00 cc: Penelope Deleon M.D. Medicine Medicine documented in this encounter Miscellaneous Notes * Op Note - Provider, MD Fidel - 09/15/2012 12:00 AM CDT Patient: James Cueva Reg No: [id number] [facility] #: [id number] Admit Dt.: 09/04/2012 : 1945 Pt Type: 100 Room No: OTHER Attending: Irineo Reinoso M.D. Surgeon: Irineo Reinoso M.D. Dictating: Irineo Reinoso M.D. Service Dt: 09/15/2012 OPERATIVE REPORT FIRST ADJUNCT SOCIOLOGY PROFESSOR: Dr. Wendy Pruitt M.D. PREOPERATIVE DIAGNOSIS (ES): [...] By Irineo Reinoso M.D. 09/25/2012 05:24 P Iirneo Reinoso M.D. [facility] #[id number] Editing MT: AMINA TD: 09/16/2012 07:03:00 cc: [...] M.D. FINAL REPORT ACC# ??Date Time ??Exam [id number] Sep 21, 2012 11:43:00 [id number] Chest 2 views Front&Lat EXAMINATION: ?? Chest [...] M.D. FINAL REPORT ACC# Date Time Exam [id number] Sep 21, 2012 11:43:00 22991 Chest 2 views Front&Lat EXAMINATION: Chest 2 [...] RESULTS - 09/21/2012 7:17 PM CDT ?[facility] ?Department of Laboratories ? [address] [facility] [address] ? [place] [address] Patient Name: ??JAMES CUEVA [facility] Rec Number: [id number] Fin Number: ?[id number] Date: ?1945 Sex/Age: ? Female 67 years Admit Date: ?09/04/2012 Discharge Date: 09/21/2012 Doctor: ?[facility] , 1302 Facility: ?[facility] Location: ?[id number] Chart Printed: 09/21/2012 19:17 ?? * Abnormal [...] and children were not included. ??(Diabetes Care 31:9301-9540, 2008). ??The eAG is not equivalent to [...] ?URINALYSIS ?Macroscopic ?Test: Color ? Clarity ??Specific Aurora ? Reference: [Yellow] ?[Clear] ??[1.003-1.030] ? Units: [...] ?Test: Neut Pct Auto ??Lymph Pct Auto ??Swift Pct Auto ? Reference: [38.7-74.5] ?[20.0-54.3] ? [4.3-13.5] ? Units: % ?% ? % 09/21/2012 ?? 01:55:00 ?? 54.4 ? 29.6 ?12.1 09/20/2012 ?? 00:40:00 ?? 51.8 ? 32.6 ?11.6 09/19/2012 ?? 00:30:00 ?? 59.0 ? 28.8 ?10.7 ? AUTOMATED WHITE CELL DIFFERENTIAL ?Test: Neut Pct Auto ??Lymph Pct Auto ??Swift Pct Auto ? Reference: [38.7-74.5] ?[20.0-54.3] ? [...] ? 0.5 ?3.1 ?Test: Lymph Abs Auto ??Swift Abs Auto ??Eos Abs Auto ? Reference: [...] updated copy of the Tool Book at [email or web address] Current Interpretive Data was last revised 2011. [...] ACT LO sPOC ??Base ACT hPOC ??HDR [place] hPOC ? Reference: [123-168] ?[112-174] ?[60-195] ? [...] (1)This test has been performed using the HipSwap Xpert Flu Assay. This is a multiplex, real-time reverse transcriptase PCR assay that detects and differentiates influenza A, 2009 H1N1 influenza A, and influenza B viral RNA. ??This assay has been cleared by the [place] Food and Drug Administration, and its performance characteristics have been verified by the [facility].Current interpretive data was last revised [...] (1)This test has been performed using the HipSwap Xpert Flu Assay. This is a multiplex, real-time reverse transcriptase PCR assay that detects and differentiates influenza A, 2009 H1N1 influenza A, and influenza B viral RNA. ??This assay has been cleared by the [place] Food and Drug Administration, and its performance characteristics have been verified by the [facility].Current interpretive data was last revised [...] Too Old 09/15/2012 ??21:45:00 ??Hgb Sat PA [facility] ??NCHG Specimen Too Old 09/15/2012 ??21:45:00 [...] Type of test: TTE w/Doppler Hospital #: [id number] Date of : 1945 (F) Data Technical Lead: Mary Carmen Grimes RDCS Referring Physician: Irineo Reinoso MD Contrast Agent: Optison (3cc/5cc saline) Contrast Administered by: Cassy Ventura RN Supervised/Interpreted by: Cassandra Dunham MD Diagnosis: Location: 720 ([facility]) Reason for test: Evaluate Left Ventricular [...] 3=Akinetic 4=Dyskin. 5=Aneurysm 0=Not visualized) Parasternal Long Irving:MAS=1 BAS=1 MP=1 BP=1 Parasternal Short Irving:MAS=1 MS=1 WA=1 MP=1 ML=1 MA=1 Apical 4 Chambers:=1 MS=1 BS=1 BL=1 WA=1 AL=1 Apical 2 Chambers:AI=1 WA=1 BI=1 BA=1 MA=1 AA=1 LV Function: Normal [...] MD By signing this report, the attending international nurse certifies that he or she has personally supervised and interpreted the echocardiogram and has reviewed and or edited and agrees with the written comments contained within the report. Procedure Note Provider, MD Fidel - 10/15/2016 Patient name: James Cueva Date of test: 09/21/2012 Type of test: [facility] #: [id number] Date of : 1945 (F) Data Technical Lead: Mary Carmen Grimes RDCS Referring Physician: Irineo Reinoso MD Contrast Agent: Optison (3cc/5cc saline) Contrast Administered by: Cassy Ventura RN Supervised/Interpreted by: Cassandra Dunham MD Diagnosis: Location: 720 ([facility]) Reason for test: Evaluate Left Ventricular [...] 3=Akinetic 4=Dyskin. 5=Aneurysm 0=Not visualized) Parasternal Long Irving:MAS=1 BAS=1 MP=1 BP=1 Parasternal Short Irving:MAS=1 MS=1 WA=1 MP=1 ML=1 MA=1 Apical 4 Chambers:=1 MS=1 BS=1 BL=1 WA=1 AL=1 Apical 2 Chambers:AI=1 WA=1 BI=1 BA=1 MA=1 AA=1 LV Function: Normal [...] MD By signing this report, the attending international nurse certifies that he or she has personally [...] agrees with it. ACC# ??Date Time ??Exam [id number] Sep 19, 2012 10:12:00 [id number] Chest 2 views Front&Lat EXAMINATION: ?? Chest [...] document has been electronically signed by: DIONY MAHNOEY M.D. on Sep ??2012 ??2:24P Procedure Note Provider, MD Fidel - 10/12/2016 DIONY MAHONEY M.D. NOLA BRIGGS M.D. FINAL REPORT The radiology attending physician has personally reviewed this study, and has reviewed and/or edited this written report and agrees with it. ACC# Date Time Exam [id number] Sep 19, 2012 10:12:00 [id number] Chest 2 views Front&Lat EXAMINATION: Chest two [...] RESULTS Plasma 09/19/2012 12:3 0 AM CDT [facility] LAB BLOOD ORDERABLES Final Resul t HISTORICAL [...] specimen (specimen) 09/19/2012 12:30 AM CDT [employer] LAB BLOOD ORDERABLES Final Resul t HISTORICAL [...] agrees with it. ACC# ??Date Time ??Exam [id number] Sep 18, 2012 10:09:00 [id number] Chest 2 views Front&Lat ACC# ??Date Time ??Exam [id number] Sep 18, 2012 10:09:00 99489 Chest 2 views Front&Lat EXAMINATION: ?? Chest [...] agrees with it. ACC# Date Time Exam [id number] Sep 18, 2012 10:09:00 60138 Chest 2 views Front&Lat ACC# Date Time Exam [id number] Sep 18, 2012 10:09:00 77525 Chest 2 views Front&Lat EXAMINATION: Chest 2 [...] Plasma 09/18/2012 1:00 AM CDT Andria Bar DEPENDENCY CASE MANAGER LAB BLOOD ORDERABLES Final Result HISTORICAL RESULTS [...] (specimen) 09/18/2012 1:00 AM CDT Andria Bar DEPENDENCY CASE MANAGER LAB BLOOD ORDERABLES Final Result HISTORICAL RESULTS * XR Chest 1 View (09/17/2012 3:23 PM CDT) Anatomical Region Laterality Modality Body, Chest N/A Radiographic Salima ging 09/17/2012 3:23 PM CDT Narrative 09/18/2012 7:54 AM CDT DIONY MAHONEY M.D. FINAL REPORT ACC# ??Date Time ??Exam [id number] Sep 17, 2012 15:23:00 94023 Chest 1 view Frontal EXAMINATION: ?? Chest one view on 09/17/2012 at 15:18 IMPRESSION: ?Median sternotomy wires and coronary bypass graft markers are again seen. Compared to [id number], the mediastinal drains, left chest tube, and [place]-Gonzalo catheter have been removed. A right internal [...] M.D. FINAL REPORT ACC# Date Time Exam [id number] Sep 17, 2012 15:23:00 [id number] Chest 1 view Frontal EXAMINATION: Chest one view on 09/17/2012 at 15:18 IMPRESSION: Median sternotomy wires and coronary bypass graft markers are again seen. Compared to [id number], the mediastinal drains, left chest tube, and [place]-Gonzalo catheter have been removed. A right internal [...] Plasma 09/17/2012 2:40 PM CDT Andria Bar DEPENDENCY CASE MANAGER LAB BLOOD ORDERABLES Final Result HISTORICAL RESULTS * (ABNORMAL) Blood cell count (CBC) (09/17/2012 2:40 PM CDT) Pathologist [facility] WBC 7.1 3.8 - 9.8 K/cumm HISTORICAL [...] specimen (specimen) 09/17/2012 2:40 PM CDT Result [facility] Andria Bar NP LAB BLOOD ORDERABLES Final Result Performing Organization Address [facility] Phone Number HISTORICAL RESULTS * Blood glucose, POC (09/17/2012 8:39 AM CDT) Glucose, POC, bld 147 65 - 199 mg/dl HISTORICAL RESULTS Blood specimen (specimen) 09/17/2012 8:39 AM CDT Result [facility] Irineo Reinoso MD LAB BLOOD ORDERABLES Final Re sult Performing Organization Address [facility] Phone Number HISTORICAL RESULTS * Blood glucose, POC (09/17/2012 3:14 AM CDT) Glucose, POC, bld 124 65 - 199 mg/dl HISTORICAL RESULTS Blood specimen (specimen) 09/17/2012 3:14 AM CDT Irineo Reinoso MD LAB BLOOD ORDERABLES Final Re sult Performing Organization Address [facility] de Phone Number HISTORICAL RESULTS * Blood glucose, POC (09/17/2012 12:22 AM CDT) Glucose, POC, bld 122 65 - 199 mg/dl HISTORICAL RESULTS Blood specimen (specimen) 09/17/2012 12:22 AM CDT Irineo Reinoso MD LAB BLOOD ORDERABLES Final Re sult Performing Organization Address [facility] de Phone Number HISTORICAL RESULTS * Plasma [...] ORDERABLES Caitlyn l Result Performing Organization Address [facility] de Phone Number HISTORICAL RESULTS * Blood consistent result (09/17/2012 12:01 AM CDT) Consistent result Consistent with previous results HISTORICAL RESULTS Blood specimen (specimen) 09/17/2012 12:01 AM CDT Historical Provider LAB BLOOD ORDERABLES Caitlyn l Result Performing Organization Address [facility] Phone Number HISTORICAL RESULTS * Blood glucose, POC (09/16/2012 8:09 PM CDT) Glucose, POC, bld 132 65 - 199 mg/dl HISTORICAL RESULTS Blood specimen (specimen) 09/16/2012 8:09 PM CDT Result [facility] Irineo Reinoso MD LAB BLOOD ORDERABLES Final Re sult Performing Organization Address [facility] de Phone Number HISTORICAL RESULTS * Blood glucose, POC (09/16/2012 5:03 PM CDT) Glucose, POC, bld 107 65 - 199 mg/dl HISTORICAL RESULTS Blood specimen (specimen) 09/16/2012 5:03 PM CDT Irineo Reinoso MD LAB BLOOD ORDERABLES Final Re sult Performing Organization Address [facility] de Phone Number HISTORICAL RESULTS * Methicillin-resistant [...] L ORDERABLES Final Result Performing Organization Address [facility] de Phone Number HISTORICAL RESULTS * Blood glucose, POC (09/16/2012 11:31 AM CDT) Glucose, POC, bld 119 65 - 199 mg/dl HISTORICAL RESULTS Gluc, com 1, bld RN Notified HISTORICAL RESULTS Blood specimen (specimen) 09/16/2012 11:31 AM CDT Irineo Reinoso MD LAB BLOOD ORDERABLES Final Re sult Performing Organization Address [facility] de Phone Number HISTORICAL RESULTS * Blood potassium, mixed venous (09/16/2012 11:19 AM CDT) Potassium, bld 4.7 3.3 - 4.9 mmol/L HISTORICAL RESULTS Mixed venous blood 09/16/2012 11:19 AM CDT Historical Provider LAB BLOOD ORDERABLES Caitlyn l Result Performing Organization Address [facility] de Phone Number HISTORICAL RESULTS * Blood glucose, POC (09/16/2012 8:27 AM CDT) Glucose, POC, bld 139 65 - 199 mg/dl HISTORICAL RESULTS Blood specimen (specimen) 09/16/2012 8:27 AM CDT Irineo Reinoso MD LAB BLOOD ORDERABLES Final Re sult Performing Organization Address [facility] Co de Phone Number HISTORICAL RESULTS * Blood glucose, POC (09/16/2012 7:13 AM CDT) Glucose, POC, bld 87 65 - 199 mg/dl HISTORICAL RESULTS Blood specimen (specimen) 09/16/2012 7:13 AM CDT Irineo Reinoso MD LAB BLOOD ORDERABLES Final Re sult Performing Organization Address [facility] de Phone Number HISTORICAL RESULTS * Blood glucose, POC (09/16/2012 5:53 AM CDT) Pathologist [facility] Glucose, POC, bld 89 65 - 199 mg/dl HISTORICAL RESULTS Blood specimen (specimen) 09/16/2012 5:53 AM CDT Irineo Reinoso MD LAB BLOOD ORDERABLES Final Re sult Performing Organization Address [facility] de Phone Number HISTORICAL RESULTS * Blood ABO, Rh, indirect ab screen (09/16/2012 5:19 AM CDT) Pathologist [facility] ABO, Rho(D) B Negative HISTORI ИВАН RESULTS Cheri, indirect Negative HISTORICAL RESULTS Blood specimen (specimen) 09/16/2012 5:19 AM CDT [facility] Provider LAB BLOOD ORDERABLES Caitlyn l Result Performing Organization Address [facility] de Phone Number HISTORICAL RESULTS * (ABNORMAL) Blood cell count (CBC) (09/16/2012 5:15 AM CDT) Pathologist [facility] WBC 5.1 3.8 - 9.8 K/cumm HISTORICAL [...] ORDERABLES Caitlyn l Result Performing Organization Address [facility] de Phone Number HISTORICAL RESULTS * Blood potassium, mixed venous (09/16/2012 5:15 AM CDT) Pathologist [facility] Potassium, bld 4.6 3.3 - 4.9 mmol/L HISTORICAL RESULTS Mixed venous blood 09/16/2012 5:15 AM CDT Historical Provider LAB BLOOD ORDERABLES Caitlyn l Result Performing Organization Address [facility] de Phone Number HISTORICAL RESULTS * Blood glucose, POC (09/16/2012 3:56 AM CDT) Glucose, POC, bld 109 65 - 199 mg/dl HISTORICAL RESULTS Blood specimen (specimen) 09/16/2012 3:56 AM CDT Result [facility] Irineo Reinoso MD LAB BLOOD ORDERABLES Final Re sult Performing Organization Address City/[facility] de Phone Number HISTORICAL RESULTS * Blood glucose, POC (09/16/2012 2:08 AM CDT) Glucose, POC, bld 140 65 - 199 mg/dl HISTORICAL RESULTS Blood specimen (specimen) 09/16/2012 2:08 AM CDT us Irineo Reinoso MD LAB BLOOD ORDERABLES Final Re sult HISTORICAL RESULTS * All Microbiology Report Section (09/16/2012 12:00 AM CDT) 09/16/2012 Narrative HISTORICAL RESULTS - 09/18/2012 3:21 PM CDT ? [facility] ?[address] [facility] [address] ?[place], [place] [address] ? Patient Name: ??JAMES CUEVA ? Med Rec Number: [id number] ? Fin Number: ?[id number] ? Date: ?1945 ? Sex/Age: ? Female 67 years ? Admit Date: ?09/04/2012 ? Discharge Date: ? Doctor: ?[facility] , 1302 ? Facility: ?[facility] ? Location: ?[id number] ?* Abnormal ??A Alert ??f Footnote ??^ [...] charge to ? the patient. ? Result [facility] Historical Provider LAB MICROBIOLOGY - GENERA L ORDERABLES Final Result Performing Organization Address [facility] de Phone Number HISTORICAL RESULTS * Blood glucose, POC (09/15/2012 11:45 PM CDT) [facility] Glucose, POC, bld 130 65 - 199 mg/dl HISTORICAL RESULTS Blood specimen (specimen) 09/15/2012 11:45 PM CDT Result [facility] Irineo Reinoso MD LAB BLOOD ORDERABLES Final Re sult Performing Organization Address [facility] de Phone Number HISTORICAL RESULTS * Blood potassium, mixed venous (09/15/2012 11:14 PM CDT) [facility] Potassium, bld 3.5 3.3 - 4.9 mmol/L HISTORICAL RESULTS Mixed venous blood 09/15/2012 11:14 PM CDT Result [facility] Historical Provider LAB BLOOD ORDERABLES Caitlyn l Result Performing Organization Address [facility] de Phone Number HISTORICAL RESULTS * (ABNORMAL) Blood gas, arterial (09/15/2012 11:14 PM CDT) [facility] Ph, art 7.37 7.35 - 7.45 HISTORICAL [...] blood 09/15/2012 11 :14 PM CDT Result [facility] Historical Provider LAB BLOOD ORDERABLES Caitlyn l Result Performing Organization Address [facility] de Phone Number HISTORICAL RESULTS * (ABNORMAL) Blood hemoglobin saturation (09/15/2012 11:00 PM CDT) [facility] Hgb estimated, main pulmonary a 9.2(L) 12.1 - 15.1 g/dl HISTORICAL RESULTS OxyHb, main pulmonary a 77.2 % HISTORICAL RESULTS COHb, main pulmonary a 1.9 % HISTORICAL RESULTS MetHb, main pulmonary a 1.9 % HISTORICAL RESULTS O2 content, pulmonary a 10.0 volume % O2 HISTORICAL RESULTS Blood specimen (specimen) 09/15/2012 11:00 PM CDT Result [facility] Provider LAB BLOOD ORDERABLES Caitlyn l Result Performing Organization Address [facility] Phone Number HISTORICAL RESULTS * Plasma phosphorus (09/15/2012 9:45 PM CDT) Phosphorus, pl 2.5 2.3 - 4.3 mg/dl HISTORICAL RESULTS Plasma 09/15/2012 9:45 PM CDT Result [facility] Provider LAB BLOOD ORDERABLES Caitlyn l Result Performing Organization Address [facility] Phone Number HISTORICAL RESULTS * (ABNORMAL) Serum magnesium (09/15/2012 9:45 PM CDT) Magnesium 3.1(H) 1.4 - 2.5 mg/dl HISTORICAL RESULTS Serum 09/15/2012 9:45 PM CDT Result [facility] Provider LAB BLOOD ORDERABLES Caitlyn l Result Performing Organization Address [facility] de Phone Number HISTORICAL RESULTS * Blood potassium, mixed venous (09/15/2012 9:45 PM CDT) Potassium, bld 3.4 3.3 - 4.9 mmol/L HISTORICAL RESULTS Mixed venous blood 09/15/2012 9:45 PM CDT Result [facility] Historical Provider LAB BLOOD ORDERABLES Caitlyn l Result Performing Organization Address [facility] de Phone Number HISTORICAL RESULTS * (ABNORMAL) [...] L ORDERABLES Final Result Performing Organization Address City/State/[facility] Co de Phone Number HISTORICAL RESULTS * [...] updated copy of the Tool Book at [email or web address] Current Interpretive Data was last revised 2011. [...] M.D. FINAL REPORT ACC# ??Date Time ??Exam [id number] Sep 15, 2012 21:10:00 [id number] Chest 1 view Frontal EXAMINATION: ?SINGLE VIEW ANTEROPOSTERIOR CHEST IMPRESSION: ?Comparison is made to prior study of September 13, 2012 at 12:51. Patient is post median sternotomy. [place]e-Gonzalo catheter ends at the level of the [...] M.D. FINAL REPORT ACC# Date Time Exam [id number] Sep 15, 2012 21:10:00 34414 Chest 1 view Frontal EXAMINATION: SINGLE VIEW ANTEROPOSTERIOR CHEST IMPRESSION: Comparison is made to prior study of September 13, 2012 at 12:51. Patient is post median sternotomy. [place]-Gonzalo catheter ends at the level of the [...] ORDERABLES Final Re sult Performing Organization Address [facility] Co de Phone Number HISTORICAL RESULTS * (ABNORMAL) Blood prothrombin time (PT) (09/15/2012 7:51 PM CDT) PT 23.8(H) 12.1 - 17.0 seconds HISTORICAL RESULTS INR 1.8(H) 1.0 - 1.3 HISTORICAL RESULTS Blood specimen (specimen) 09/15/2012 7:51 PM CDT Irineo Reinoso MD LAB BLOOD ORDERABLES Final Re sult Performing Organization Address [facility] de Phone Number HISTORICAL RESULTS * Blood partial thromboplastin time (PTT) (09/15/2012 7:51 PM CDT) PTT 30.8 29.3 - 45.4 seconds HISTORICAL RESULTS Blood specimen (specimen) 09/15/2012 7:51 PM CDT Irineo Reinoso MD LAB BLOOD ORDERABLES Final Re sult Performing Organization Address [facility] Co de Phone Number HISTORICAL RESULTS * (ABNORMAL) Blood platelet, hematocrit Point of Care (09/15/2012 7:51 PM CDT) Hct 23.5(L) 36.1 - 44.3 % HISTORICAL RESULTS Platelets 156 140 - 440 K/cumm HISTORICAL RESULTS Blood specimen (specimen) 09/15/2012 7:51 PM CDT Irineo Reinoso MD LAB BLOOD ORDERABLES Final Re sult Performing Organization Address [facility]/ZIP Co de Phone Number HISTORICAL RESULTS * Blood heparin/activated clotting time (ACT) (09/15/2012 7:50 PM CDT) Heparin, POC 0.0 Units/ml HISTORI ИВАН RESULTS Coagulation time, activated, POC 142 112 - 174 seconds HISTORICAL RESULTS Blood specimen (specimen) 09/15/2012 7:50 PM CDT Irineo Reinoso MD LAB BLOOD ORDERABLES Final Re sult Performing Organization Address [facility] de Phone Number HISTORICAL RESULTS * (ABNORMAL) [...] blood 09/15/2012 6: 52 PM CDT Result [facility] Irineo Reinoso MD LAB BLOOD ORDERABLES Final Re sult Performing Organization Address [facility] Co de Phone Number HISTORICAL RESULTS * [...] blood 09/15/2012 6: 24 PM CDT Result [facility] Irineo Reinoso MD LAB BLOOD ORDERABLES Final Re sult Performing Organization Address [facility] de Phone Number HISTORICAL RESULTS * (ABNORMAL) Blood heparin/activated clotting time (ACT) (09/15/2012 6:22 PM CDT) Heparin, POC 4.1 Units/ml HISTORI ИВАН RESULTS Coagulation time, activated, POC 599(H) 112 - 174 seconds HISTORICAL RESULTS Blood specimen (specimen) 09/15/2012 6:22 PM CDT Result [facility] Irineo Reinoso MD LAB BLOOD ORDERABLES Final Re sult Performing Organization Address City/[facility] Co de Phone Number HISTORICAL RESULTS * (ABNORMAL) Blood heparin/activated clotting time (ACT) (09/15/2012 5:22 PM CDT) Heparin, POC >4.7 Units/ml HISTORI ИВАН RESULTS Coagulation time, activated, POC 645(H) 112 - 174 seconds HISTORICAL RESULTS Blood specimen (specimen) 09/15/2012 5:22 PM CDT Result [facility] Irineo Reinoso MD LAB BLOOD ORDERABLES Final Re sult Performing Organization Address [facility] Co de Phone Number HISTORICAL RESULTS * [...] ORDERABLES Final Resul t Performing Organization Address [facility] de Phone Number HISTORICAL RESULTS * Blood [...] ORDERABLES Final Re sult Performing Organization Address [facility] Co de Phone Number HISTORICAL RESULTS * [...] HISTORICAL RESULTS Plasma 09/15/2012 5:12 AM CDT [facility] [employer] [facility] [place] LAB BLOOD ORDERABLES Final Result Performing Organization Address [facility] de Phone Number HISTORICAL RESULTS * Serum magnesium (09/15/2012 5:12 AM CDT) Pathologist [facility] Magnesium 2.1 1.4 - 2.5 mg/dl HISTORICAL RESULTS Serum 09/15/2012 5:12 AM CDT [employer] LAB BLOOD ORDERABLES Final Result Performing Organization Address [facility] de Phone Number HISTORICAL RESULTS * (ABNORMAL) [...] - 09/18/2012 3:21 PM CDT ? [facility] ?[address] [facility] [address] ?[place], [place] [address] ? Patient Name: ??JAMES CUEVA ? Med Rec Number: [id number] ? Fin Number: ?[id number] ? Date: ?1945 ? Sex/Age: ? Female 67 years ? Admit Date: ?09/04/2012 ? Discharge Date: ? Doctor: ?MEDICINE , 1302 ? Facility: ?[facility] ? Location: ?[id number] ?* Abnormal ??A Alert ??f Footnote [...] L ORDERABLES Final Result Performing Organization Address [facility] de Phone Number HISTORICAL RESULTS * Plasma [...] ORDERABLES Caitlyn l Result Performing Organization Address [facility] de Phone Number HISTORICAL RESULTS * Plasma [...] updated copy of the Tool Book at [email or web address]://[email or web address] Current Interpretive Data was last revised 2011. Plasma 09/14/2012 10:1 0 PM CDT Result [facility] Provider MD LAB BLOOD ORDERABLES Caitlyn l Result Performing Organization Address [facility] de Phone Number HISTORICAL RESULTS * Blood check sample (09/14/2012 10:10 PM CDT) ABO, Rho(D) B Negative HISTORI ИВАН RESULTS Blood specimen (specimen) 09/14/2012 10:10 PM CDT Result [facility] Provider MD LAB BLOOD ORDERABLES Caitlyn l Result Performing Organization Address [facility] de Phone Number HISTORICAL RESULTS * (ABNORMAL) Plasma partial thromboplastin time (PTT) (09/14/2012 2:36 PM CDT) APTT 60.9(H) 25.0 - 37.0 seconds HISTORICAL RESULTS Comment: Interpretive Data Therapeutic heparin range:60.0 - 94.0 sec based on correlation with therapeutic heparin activity range of 0.3 -0.7 Units/mL. Current interpretive data was last revised on 2011. Plasma 09/14/2012 2:36 PM CDT Result [facility] Provider MD LAB BLOOD ORDERABLES Caitlyn l Result Performing Organization Address [facility] de Phone Number HISTORICAL RESULTS * Blood ABO, Rh, indirect ab screen (09/14/2012 2:36 PM CDT) ABO, Rho(D) B Negative HISTORI ИВАН RESULTS Cheri, indirect Negative HISTORICAL RESULTS Blood specimen (specimen) 09/14/2012 2:36 PM CDT Historical Provider LAB BLOOD ORDERABLES Caitlyn dominguez Result Performing Organization Address [facility] de Phone Number HISTORICAL RESULTS * (ABNORMAL) [...] specimen (specimen) 09/14/2012 2:36 PM CDT Result [facility] Provider LAB BLOOD ORDERABLES Caitlyn dominguez Result Performing Organization Address [facility] de Phone Number HISTORICAL RESULTS * Urinalysis [...] ORDERABLES Caitlyn l Result Performing Organization Address City/[facility] Co de Phone Number HISTORICAL RESULTS * Plasma phosphorus (09/14/2012 1:41 AM CDT) Phosphorus, pl 3.2 2.3 - 4.3 mg/dl HISTORICAL RESULTS Plasma 09/14/2012 1:41 AM CDT Result [facility] Historical Provider LAB BLOOD ORDERABLES Caitlyn l Result Performing Organization Address [facility] de Phone Number HISTORICAL RESULTS * Serum magnesium (09/14/2012 1:41 AM CDT) Magnesium 1.8 1.4 - 2.5 mg/dl HISTORICAL RESULTS Serum 09/14/2012 1:41 AM CDT Result [facility] Provider LAB BLOOD ORDERABLES Caitlyn l Result Performing Organization Address [facility] de Phone Number HISTORICAL RESULTS * (ABNORMAL) [...] ORDERABLES Caitlyn l Result Performing Organization Address City/[facility] de Phone Number HISTORICAL RESULTS * (ABNORMAL) [...] ORDERABLES Caitlyn l Result Performing Organization Address City/[facility] Co de Phone Number HISTORICAL RESULTS * [...] agrees with it. ACC# ??Date Time ??Exam [id number] Sep 13, 2012 12:55:00 21285 Chest 2 views Front&Lat EXAMINATION: ?? Chest 2 views ?? IMPRESSION: ?? Comparison is made to prior examination dated 09/04/2012. The lungs are clear. ??There is no focal consolidation, effusion, or pneumothorax. ??The heart size is normal. ??There are normal mediastinal contours. Surgical clips are seen in the left upper quadrant of the abdomen. ?? Requested By: NILA TRUONG M.D. Dictated By: ?? AALIYHA RUIZ, ?? on Sep ??2012 ??9:04A This document has been electronically signed by: DIONY MAHONEY M.D. on Sep ??2012 11:24A Procedure Note Provider, MD Fidel - 10/12/2016 DIONY MAHONEY M.D. AALIYAH RUIZ, FINAL REPORT The radiology attending physician has personally reviewed this study, and has reviewed and/or edited this written report and agrees with it. ACC# Date Time Exam [id number] Sep 13, 2012 12:55:00 [id number] Chest 2 views Front&Lat EXAMINATION: Chest 2 [...] specimen (specimen) 09/13/2012 2:09 AM CDT Result [facility] Jeimy aLws LAB BLOOD ORDERABLES Final Resul t Performing Organization Address [facility] de Phone Number HISTORICAL RESULTS * (ABNORMAL) Plasma partial thromboplastin time (PTT) (09/13/2012 2:05 AM CDT) APTT 68.9(H) 25.0 - 37.0 seconds HISTORICAL RESULTS Comment: Interpretive Data Therapeutic heparin range:60.0 - 94.0 sec based on correlation with therapeutic heparin activity range of 0.3 -0.7 Units/mL. Current interpretive data was last revised on 2011. Plasma 09/13/2012 2:05 AM CDT Result [facility] Historical Provider LAB BLOOD ORDERABLES Caitlyn l Result Performing Organization Address [facility] Co de Phone Number HISTORICAL RESULTS * (ABNORMAL) Plasma partial thromboplastin time (PTT) (09/11/2012 9:43 AM CDT) APTT 60.4(H) 25.0 - 37.0 seconds HISTORICAL RESULTS Comment: Interpretive Data Therapeutic heparin range:60.0 - 94.0 sec based on correlation with therapeutic heparin activity range of 0.3 -0.7 Units/mL. Current interpretive data was last revised on 2011. Plasma 09/11/2012 9:43 AM CDT Result [facility] Historical Provider LAB BLOOD ORDERABLES Caitlyn [...] 2011. Plasma 09/10/2012 10:0 2 PM CDT [facility] LAB BLOOD ORDERABLES Final Resul t Performing Organization Address [facility] Co de Phone Number HISTORICAL RESULTS * [...] updated copy of the Tool Book at [email or web address] Current Interpretive Data was last revised 2011. Plasma 09/10/2012 10:0 2 PM CDT [facility] LAB BLOOD ORDERABLES Final Resul t Performing Organization Address [facility]/ZIP Co de Phone Number HISTORICAL RESULTS * [...] RESULTS Plasma 09/10/2012 6:10 AM CDT Result [facility] Historical Provider MD LAB BLOOD ORDERABLES Caitlyn l Result Performing Organization Address [facility] de Phone Number HISTORICAL RESULTS * (ABNORMAL) Plasma partial thromboplastin time (PTT) (09/10/2012 6:10 AM CDT) APTT 63.9(H) 25.0 - 37.0 seconds HISTORICAL RESULTS Comment: Interpretive Data Therapeutic heparin range:60.0 - 94.0 sec based on correlation with therapeutic heparin activity range of 0.3 -0.7 Units/mL. Current interpretive data was last revised on 2011. Plasma 09/10/2012 6:10 AM CDT Result [facility] Historical Provider MD LAB BLOOD ORDERABLES Caitlyn l Result Performing Organization Address [facility] de Phone Number HISTORICAL RESULTS * Plasma phosphorus (09/10/2012 6:10 AM CDT) Phosphorus, pl 3.9 2.3 - 4.3 mg/dl HISTORICAL RESULTS Plasma 09/10/2012 6:10 AM CDT Result [facility] Provider MD LAB BLOOD ORDERABLES Caitlyn l Result Performing Organization Address [facility] de Phone Number HISTORICAL RESULTS * (ABNORMAL) [...] updated copy of the Tool Book at http://[email or web address]/bjc/[email or web address] Current Interpretive Data was last revised 2011. Prothrombin time (PT) 13.2(H) 9.0 - 12.0 seconds HISTORICAL RESULTS Plasma 09/10/2012 6:10 AM CDT Historical Provider MD LAB BLOOD ORDERABLES Caitlyn l Result Performing Organization Address [facility] de Phone Number HISTORICAL RESULTS * Serum magnesium (09/10/2012 6:10 AM CDT) Magnesium 2.0 1.4 - 2.5 mg/dl HISTORICAL RESULTS Serum 09/10/2012 6:10 AM CDT Historical Provider LAB BLOOD ORDERABLES Caitlyn l Result Performing Organization Address [facility] de Phone Number HISTORICAL RESULTS * (ABNORMAL) [...] ORDERABLES Caitlyn l Result Performing Organization Address [facility] de Phone Number HISTORICAL RESULTS * (ABNORMAL) Plasma partial thromboplastin time (PTT) (09/09/2012 5:30 PM CDT) APTT 62.3(H) 25.0 - 37.0 seconds HISTORICAL RESULTS Comment: Interpretive Data Therapeutic heparin range:60.0 - 94.0 sec based on correlation with therapeutic heparin activity range of 0.3 -0.7 Units/mL. Current interpretive data was last revised on 2011. Plasma 09/09/2012 5:30 PM CDT [facility] Provider MD LAB BLOOD ORDERABLES Caitlyn l Result Performing Organization Address [facility] Phone Number HISTORICAL RESULTS * (ABNORMAL) Plasma [...] ORDERABLES Caitlyn l Result Performing Organization Address [facility] de Phone Number HISTORICAL RESULTS * (ABNORMAL) [...] thromboplastin time (PTT) (09/08/2012 10:45 PM CDT) [facility] APTT 63.8(H) 25.0 - 37.0 seconds HISTORICAL RESULTS Comment: Interpretive Data Therapeutic heparin range:60.0 - 94.0 sec based on correlation with therapeutic heparin activity range of 0.3 -0.7 Units/mL. Current interpretive data was last revised on 2011. Plasma 09/08/2012 10:4 5 PM CDT Historical Provider LAB BLOOD ORDERABLES Caitlyn l Result HISTORICAL RESULTS * Plasma phosphorus (09/08/2012 10:45 PM CDT) Pathologist [facility] Phosphorus, pl 3.1 2.3 - 4.3 mg/dl HISTORICAL RESULTS Plasma 09/08/2012 10:4 5 PM CDT Historical Provider LAB BLOOD ORDERABLES Caitlyn l Result Performing Organization Address [facility] de Phone Number HISTORICAL RESULTS * (ABNORMAL) [...] updated copy of the Tool Book at [email or web address] Current Interpretive Data was last revised 2011. Plasma 09/08/2012 10:4 5 PM CDT Historical Provider LAB BLOOD ORDERABLES Caitlyn l Result Performing Organization Address [facility] Co de Phone Number HISTORICAL RESULTS * [...] agrees with it. ACC# ??Date Time ??Exam [id number] Sep 08, 2012 11:18:[address] Chest without contrast EXAMINATION: ? Chest [...] this written report and agrees with it. [facility]# Date Time Exam [id number] Sep 08, 2012 11:18:[address] Chest without contrast EXAMINATION: Chest CT [...] RESULTS Plasma 09/07/2012 9:51 PM CDT Result [facility] Historical Provider LAB BLOOD ORDERABLES Caitlyn [...] 2011. Plasma 09/07/2012 9:51 PM CDT Result [facility] Historical Provider LAB BLOOD ORDERABLES Caitlyn l Result Performing Organization Address City/State/[facility] Co de Phone Number HISTORICAL RESULTS * Plasma phosphorus (09/07/2012 9:51 PM CDT) Phosphorus, pl 3.1 2.3 - 4.3 mg/dl HISTORICAL RESULTS Plasma 09/07/2012 9:51 PM CDT Result [facility] Historical Provider LAB BLOOD ORDERABLES Caitlyn l Result Performing Organization Address [facility] de Phone Number HISTORICAL RESULTS * Serum magnesium (09/07/2012 9:51 PM CDT) Pathologist [facility] Magnesium 1.8 1.4 - 2.5 mg/dl HISTORICAL RESULTS Serum 09/07/2012 9:51 PM CDT Result [facility] Historical Provider LAB BLOOD ORDERABLES Caitlyn l Result Performing Organization Address [facility] de Phone Number HISTORICAL RESULTS * (ABNORMAL) Blood cell count [CBC] express (09/07/2012 9:51 PM CDT) Pathologist [facility] WBC 5.2 3.8 - 9.8 K/cumm HISTORICAL [...] specimen (specimen) 09/07/2012 9:51 PM CDT Result [facility] Historical Provider LAB BLOOD ORDERABLES Caitlyn l Result Performing Organization Address [facility] Phone Number HISTORICAL RESULTS * (ABNORMAL) Blood activated clotting time, low (09/07/2012 9:12 AM CDT) Coagulation time, activated 275(H) 123 - 168 seconds HISTORICAL RESULTS Blood specimen (specimen) 09/07/2012 9:12 AM CDT Jeimy Laws LAB BLOOD ORDERABLES Final Resul t Performing Organization Address [facility] Phone Number HISTORICAL RESULTS * (ABNORMAL) Blood activated clotting time, low (09/07/2012 9:01 AM CDT) Coagulation time, activated 218(H) 123 - 168 seconds HISTORICAL RESULTS Blood specimen (specimen) 09/07/2012 9:01 AM CDT Jeimy Aditya Cisnerosmichael LAB BLOOD ORDERABLES Final Resul t Performing Organization Address [facility] de Phone Number HISTORICAL RESULTS * Blood activated clotting time, low (09/07/2012 8:34 AM CDT) Coagulation time, activated 139 123 - 168 seconds HISTORICAL RESULTS Blood specimen (specimen) 09/07/2012 8:34 AM CDT Jeimy Laws LAB BLOOD ORDERABLES Final Resul t Performing Organization Address [facility] Phone Number HISTORICAL RESULTS * Cardiac catheterization (09/07/2012 12:00 AM CDT) Anatomical Region Laterality Modality Other 09/07/2012 Narrative 09/10/2012 8:34 AM CDT Patient: ?James Cueva ? Reg No: ? [id number] ? U H #: ?[id number] ? : ?1945 ? Attending: ??Greg Piedra M.D. ? Dictating: ??Greg Piedra M.D. ? Service Dt: 09/07/2012 ?CARDIAC CATHETERIZATION REPORT FINAL CARDIAC CATHETERIZATION / FRACTIONAL FLOW RESERVE REPORT: PATIENT CLINICAL PROFILE: ?The patient is a 67-year-old female with a past medical history of diverticulitis, deep venous thrombosis in the distant past who presented to [facility] Emergency Room with a one day history [...] used included a 6F VL 3, a [place] Prime wire. 8. Weight-adjusted adjusted heparin was [...] narrowing which is best appreciated in the PORTUGUESE cranial view. ??It does have ?? mild [...] ??This is ?? best appreciated in the [place]UESE cranial view. ??A small diagonal originates from [...] narrowing in the distal segment. Fractional Flow [place] Assessment: To help guide revascularization options fractional flow reserve was obtained of the moderate left anterior descending coronary artery lesion. ??A [place] Prime wire was normalized in the aorta. [...] M.D. 09/10/2012 08:34 A Greg Piedra M.D. [facility] #[id number] Editing MT: TD: ??09/07/2012 10:13:00 cc: ?? Vernon White M.D. ?Greg Piedra M.D. ?Jeimy Laws M.D. Procedure Note Provider, MD Fidel - 10/15/2016 Patient: James Cueva Reg No: [id number] [facility] #: [id number] : 1945 Attending: Greg Piedra M.D. Dictating: Greg Piedra M.D. Service Dt: 09/07/2012 CARDIAC CATHETERIZATION REPORT FINAL CARDIAC CATHETERIZATION / FRACTIONAL FLOW RESERVE REPORT: PATIENT CLINICAL PROFILE: The patient is a 67-year-old female with a past medical history of diverticulitis, deep venous thrombosis in the distant past who [facility] with a one day history [...] used included a 6F VL 3, a [place] Prime wire. 8. Weight-adjusted adjusted heparin was [...] narrowing which is best appreciated in the PORT[place]UESE cranial view. It doeshave mild distal narrowing as well. 2. Left circumflex coronary artery: There is a 90% hazy ostialcircumflex lesion with some mild distal left main involvement. It gives rise to jazlyn tiny first marginal. There is a second 30% lesion and then a dtbogi35-33% lesion. 3. Left anterior descending coronary artery: The left anteriordescending coronary artery has an ostial lesion of approximately 50%. It becomesmore normal in appearance and then has another tandem LAD lesion of 50%.This is best appreciated in the PORTUGUESE cranial view. A small diagonal originatesfrom here which has a 40-50% ostial lesion. There is mild bridging in themid left anterior descending artery. Right Coronary System: The right coronary artery is a dominant vessel giving rise to a PDA andseveral right posterior LV branches. There is mild narrowing of the connectingsegment and mild narrowing in the distal segment. Fractional Flow [place] Assessment: To help guide revascularization options fractional flow reserve wasobtained of the moderate left anterior descending coronary artery lesion. A VolcanTranZfinitye wire was normalized in the aorta. It [...] M.D. 09/10/2012 08:34 A Greg Piedra M.D. [facility]ashir/gavi #[id number] Editing MT: TD: 09/07/2012 10:13:00 cc: Penelope [...] ORDERABLES Caitlyn l Result Performing Organization Address [facility] de Phone Number HISTORICAL RESULTS * (ABNORMAL) Plasma partial thromboplastin time (PTT) (09/06/2012 10:20 PM CDT) APTT 67.7(H) 25.0 - 37.0 seconds HISTORICAL RESULTS Comment: Interpretive Data Therapeutic heparin range:60.0 - 94.0 sec based on correlation with therapeutic heparin activity range of 0.3 -0.7 Units/mL. Current interpretive data was last revised on 2011. Plasma 09/06/2012 10:2 0 PM CDT Result [facility] Historical Provider LAB BLOOD ORDERABLES Caitlyn l Result Performing Organization Address [facility] de Phone Number HISTORICAL RESULTS * Plasma phosphorus (09/06/2012 10:20 PM CDT) Phosphorus, pl 2.3 2.3 - 4.3 mg/dl HISTORICAL RESULTS Plasma 09/06/2012 10:2 0 PM CDT Result [facility] Historical Provider LAB BLOOD ORDERABLES Caitlyn l Result Performing Organization Address [facility] Co de Phone Number HISTORICAL RESULTS * [...] updated copy of the Tool Book at [email or web address]://[email or web address]/bjc/[email or web address] Current Interpretive Data was last revised 2011. Plasma 09/06/2012 10:2 0 PM CDT Historical Provider MD LAB BLOOD ORDERABLES Caitlyn l Result Performing Organization Address [facility] de Phone Number HISTORICAL RESULTS * Serum magnesium (09/06/2012 10:20 PM CDT) Magnesium 1.7 1.4 - 2.5 mg/dl HISTORICAL RESULTS Serum 09/06/2012 10:2 0 PM CDT Historical Provider MD LAB BLOOD ORDERABLES Caitlyn l Result Performing Organization Address [facility] de Phone Number HISTORICAL RESULTS * (ABNORMAL) [...] ORDERABLES Caitlyn dominguez Result Performing Organization Address City/[facility] Co de Phone Number HISTORICAL RESULTS * (ABNORMAL) Plasma partial thromboplastin time (PTT) (09/06/2012 7:00 AM CDT) APTT 58.7(H) 25.0 - 37.0 seconds HISTORICAL RESULTS Comment: Interpretive Data Therapeutic heparin range:60.0 - 94.0 sec based on correlation with therapeutic heparin activity range of 0.3 -0.7 Units/mL. Current interpretive data was last revised on 2011. Plasma 09/06/2012 7:00 AM CDT Result [facility] Provider LAB BLOOD ORDERABLES Caitlyn dominguez Result Performing Organization Address [facility] de Phone Number HISTORICAL RESULTS * ELECTROCARDIOGRAPHY (ECG) (09/06/2012) Narrative 09/06/2012 Ordered by an unspecified provider. Result [facility] Provider ECG ORDERABLES Final Res ult [...] ORDERABLES Caitlyn dominguez Result Performing Organization Address [facility] de Phone Number HISTORICAL RESULTS * (ABNORMAL) [...] ORDERABLES Caitlyn dominguez Result Performing Organization Address [facility] de Phone Number HISTORICAL RESULTS * Plasma [...] updated copy of the Tool Book at http://[email or web address]/bjc/[email or web address] Current Interpretive Data was last revised 2011. Plasma 09/05/2012 11:0 0 PM CDT Historical Provider MD LAB BLOOD ORDERABLES Caitlyn l Result Performing Organization Address City/[facility] Co de Phone Number HISTORICAL RESULTS * Serum magnesium (09/05/2012 11:00 PM CDT) Magnesium 2.0 1.4 - 2.5 mg/dl HISTORICAL RESULTS Serum 09/05/2012 11:0 0 PM CDT Result [facility] Provider MD LAB BLOOD ORDERABLES Caitlyn l Result Performing Organization Address [facility] de Phone Number HISTORICAL RESULTS * (ABNORMAL) [...] ORDERABLES Caitlyn l Result Performing Organization Address [facility] de Phone Number HISTORICAL RESULTS * (ABNORMAL) Plasma partial thromboplastin time (PTT) (09/05/2012 1:20 PM CDT) APTT 52.9(H) 25.0 - 37.0 seconds HISTORICAL RESULTS Comment: Interpretive Data Therapeutic heparin range:60.0 - 94.0 sec based on correlation with therapeutic heparin activity range of 0.3 -0.7 Units/mL. Current interpretive data was last revised on 2011. Plasma 09/05/2012 1:20 PM CDT Result [facility] Provider MD LAB BLOOD ORDERABLES Caitlyn l Result Performing Organization Address [facility] de Phone Number HISTORICAL RESULTS * (ABNORMAL) [...] ORDERABLES Caitlyn l Result Performing Organization Address [facility] Co de Phone Number HISTORICAL RESULTS * Influenza virus PCR (09/05/2012 4:40 AM CDT) Nasopharyngeal (Unknown) 09/05/2012 4:40 AM CDT 09/05/2012 5:59 AM CDT Impressions HISTORICAL RESULTS - 09/05/2012 11:40 AM CDT This test has been performed using the HipSwap Xpert Flu Assay. ??This is a multiplex, real-time reverse transcriptase PCR assay that detects and differentiates influenza A, 2009 H1N1 influenza A, and influenza B viral RNA. ??This assay has been cleared by the US Food and Drug Administration, and its performance characteristics have been verified by the [facility] Microbiology Laboratory. Current interpretive data was last revised on 2011. Narrative HISTORICAL RESULTS - 09/05/2012 11:40 AM CDT Flu A target RNA not detected Flu B target RNA not detected Historical Provider LAB MICROBIOLOGY - GENERA L ORDERABLES Final Result Performing Organization Address [facility] Co de Phone Number HISTORICAL RESULTS * [...] ORDERABLES Caitlyn dominguez Result Performing Organization Address [facility] de Phone Number HISTORICAL RESULTS * (ABNORMAL) [...] ORDERABLES Caitlyn dominguez Result Performing Organization Address [facility] de Phone Number HISTORICAL RESULTS * All Microbiology Report Section (09/05/2012 12:00 AM CDT) 09/05/2012 Narrative HISTORICAL RESULTS - 09/17/2012 3:23 PM CDT ? [facility] ?[facility] [address] ?[place], [place] [address] ? Patient Name: ??ARAVINDSUSANNAHGabbi JAMES Colbert ? Med Rec Number: [id number] ? Fin Number: ?[id number] ? Date: ?1945 ? Sex/Age: ? Female 67 years ? Admit Date: ?09/04/2012 ? Discharge Date: ? Doctor: ?MEDICINE , 1302 ? Facility: ?[facility] ? Location: ?0072 [id number] 01 ?* Abnormal ??A Alert ??f Footnote [...] (1)This test has been performed using the HipSwap Xpert Flu Assay. ? This is a multiplex, real-time reverse transcriptase PCR assay ? that detects and differentiates influenza A, 2009 H1N1 influenza ? A, and influenza B viral RNA. ??This assay has been cleared by ? the US Food and Drug Administration, and its performance ? characteristics have been verified by the [facility] ? Microbiology Laboratory.Current interpretive data was last ? revised on 07/16/2011. ? us Historical Provider LAB MICROBIOLOGY - GENERA L ORDERABLES Final Result HISTORICAL RESULTS * Transthoracic Echo Complete W Doppler/CF WO Contrast (09/05/2012 12:00 AM CDT) Anatomical Region Laterality Modality Ultrasound 09/05/2012 Narrative 09/05/2012 12:00 AM CDT Patient name: James Cueva Date of test: 09/05/2012 Type of test: TTE w/Doppler [facility] #: [id number] Date of : 1945 (F) Data Technical Lead: Jahaira Dawn RDCS Referring Physician: Jeimy Laws MD Contrast Agent: Contrast Administered by: Supervised/Interpreted by: Black Kebede MD Diagnosis: Location: 9200 ([facility]) Reason for test: ??Chest Pain (Tightness/Pressure) [...] 3=Akinetic 4=Dyskin. 5=Aneurysm 0=Not visualized) Parasternal Long Irving:MAS=1 BAS=1 MP=1 BP=1 Parasternal Short Irving:MAS=1 MS=1 WA=1 MP=1 ML=1 MA=1 Apical 4 Chambers:=1 MS=1 BS=1 BL=1 WA=1 AL=1 Apical 2 Chambers:AI=1 WA=1 BI=1 BA=1 MA=1 AA=1 LV Function: Normal [...] MD By signing this report, the attending international nurse certifies that he or she has personally supervised and interpreted the echocardiogram and has reviewed and or edited and agrees with the written comments contained within the report. Procedure Note Provider, MD Fidel - 10/15/2016 Patient name: James Cueva Date of test: 09/05/2012 Type of test: TTE w/Doppler [facility] #: [id number] Date of : 1945 (F) Data Technical Lead: Jahaira Dawn RDCS Referring Physician: Jeimy Laws MD Contrast Agent: Contrast Administered by: Supervised/Interpreted by: Black Kebede MD Diagnosis: Location: 92 ([facility]) Reason for test: Chest Pain (Tightness/Pressure) [...] 3=Akinetic 4=Dyskin. 5=Aneurysm 0=Not visualized) Parasternal Long Irving:MAS=1 BAS=1 MP=1 BP=1 Parasternal Short Irving:MAS=1 MS=1 WA=1 MP=1 ML=1 MA=1 Apical 4 Chambers:=1 MS=1 BS=1 BL=1 WA=1 AL=1 Apical 2 Chambers:AI=1 WA=1 BI=1 BA=1 MA=1 AA=1 LV Function: Normal [...] MD By signing this report, the attending international nurse certifies that he or she has personally supervised and interpreted the echocardiogram and has reviewed and or edited and agrees with the written comments contained within the report. Historical Provider CV ECHO PROCEDURES Final Result * (ABNORMAL) Serum troponin I (09/04/2012 9:30 PM CDT) Pathologist [facility] Troponin I 4.15(C) 0.00 - 0.24 ng/ml HISTORICAL RESULTS Comment: {Previous critical value noted 8 hours ago.} Interpretive Data Normal Range: <0.07 ng/mL: Negative 0.07 - 0.24 ng/mL: Elevated, may be consistent with Myocardial Injury/Ischemia but is nondiagnostic and of equivocal significance. Consider obtaining additional Troponin values. (JAM Karey Cardiol 2000; 36:959. Circulation 2000; 102: 1193., 2002; 106: 1893., 2003: 108: 9403) Greater than or equal to 0.25 ng/mL: Positive Troponin, suggest establishing rising or falling pattern and evidence of Cardiac Ischemia for consideration of Myocardial Infarction. Current interpretive data was last revised on 2007. Serum 09/04/2012 9:30 PM CDT Historical Provider LAB BLOOD ORDERABLES Caitlyn l Result Performing Organization Address [facility] Co de Phone Number HISTORICAL RESULTS * [...] ORDERABLES Caitlyn l Result Performing Organization Address City/[facility]/ZIP Co de Phone Number HISTORICAL RESULTS * [...] updated copy of the Tool Book at [email or web address] Current Interpretive Data was last revised 2011. Plasma 09/04/2012 9:30 PM CDT us Historical Provider LAB BLOOD ORDERABLES Caitlyn l Result HISTORICAL RESULTS * Serum magnesium (09/04/2012 9:30 PM CDT) Magnesium 1.5 1.4 - 2.5 mg/dl HISTORICAL RESULTS Serum 09/04/2012 9:30 PM CDT Historical Provider LAB BLOOD ORDERABLES Caitlyn dominguez Result Performing Organization Address City/State/[facility] Co de Phone Number HISTORICAL RESULTS * [...] and children were not included. ??(Diabetes Care 31:5020-9231, 2008). ??The eAG is not equivalent to a fasting glucose. Blood specimen (specimen) 09/04/2012 9:30 PM CDT Historical Provider LAB BLOOD ORDERABLES Caitlyn l Result Performing Organization Address City/[facility]/ZIP Co de Phone Number HISTORICAL RESULTS * [...] agrees with it. ACC# ??Date Time ??Exam [id number] Sep 04, 2012 13:27:00 [id number] Chest 2 views Frontl & Lat EXAMINATION: [...] agrees with it. ACC# Date Time Exam [id number] Sep 04, 2012 13:27:00 [id number] Chest 2 views Frontl & Lat EXAMINATION: [...] ORDERABLES Final Res ult Performing Organization Address [facility] de Phone Number HISTORICAL RESULTS * Plasma [...] ORDERABLES Final Res ult Performing Organization Address [facility] de Phone Number HISTORICAL RESULTS * (ABNORMAL) [...] ORDERABLES Final Res ult Performing Organization Address [facility] Co de Phone Number HISTORICAL RESULTS * [...] 102: 1193., 2002; 106: 1893., 2003: 108: 1753) Greater than or equal to 0.25 ng/mL: Positive Troponin, suggest establishing rising or falling pattern and evidence of Cardiac Ischemia for consideration of Myocardial Infarction. Current interpretive data was last revised on 2007. Serum 09/04/2012 12:5 0 PM CDT us Blake Robertson MD LAB BLOOD ORDERABLES Final Res ult Performing Organization Address [facility] Co de Phone Number HISTORICAL RESULTS * [...] 2.5-3.5 INR *See the pharmacy resource directory ([employer]) for an updated copy of the Tool Book at [email or web address]/bjc/pharmacy.nsf Current Interpretive Data was last revised 2011. Plasma 09/04/2012 12:5 0 PM CDT us Blake Robertson MD LAB BLOOD ORDERABLES Final Res ult HISTORICAL RESULTS * Blood cell count (CBC) (09/04/2012 12:50 PM CDT) Pathologist [facility] WBC 5.1 3.8 - 9.8 K/cumm HISTORICAL [...] specimen (specimen) 09/04/2012 12:50 PM CDT Result [facility] Blake Robertson MD LAB BLOOD ORDERABLES Final Res ult Performing Organization Address City/State/[facility] Co de Phone Number HISTORICAL RESULTS * ELECTROCARDIOGRAPHY (ECG) (09/04/2012) Narrative 09/04/2012 Ordered by an unspecified provider. Result [facility] Historical Provider ECG ORDERABLES Final Res ult * ELECTROCARDIOGRAPHY (ECG) (09/04/2012) Narrative 09/04/2012 Ordered by an unspecified provider. Result [facility] Provider ECG ORDERABLES Final Res ult * ELECTROCARDIOGRAPHY (ECG) (09/04/2012) Narrative 09/04/2012 Ordered by an unspecified provider. Result [facility] Provider ECG ORDERABLES Final Res ult * ELECTROCARDIOGRAPHY (ECG) (09/04/2012) Narrative 09/04/2012 Ordered by an unspecified provider. Result [facility] Historical Provider ECG ORDERABLES Final Res ult documented in this encounter Visit Diagnoses Diagnosis Acute subendocardial infarction, initial episode of care (HCC) Acute myocardial infarction, subendocardial infarction, initial episode of care Acute posthemorrhagic anemia Pulmonary collapse Coronary atherosclerosis of ak chin coronary artery Other and unspecified hyperlipidemia Cough Elevation of level of transaminase and lactic acid dehydrogenase (LDH) Personal history of transient ischemic attack (TIA) and cerebral infarction without residual deficit Esophageal reflux Other acute postoperative pain Other iatrogenic hypotension Hypopotassemia Other specified cardiac dysrhythmias documented in this encounter
--- OUTSIDE RECORDS SUMMARY | 2024-06-12 04:35 | XMS_ITS | Encounter Summary ---
Author Organization [facility] Healthcare Address [address] [place] [address] Care Team Providers Care Plating Operator Name Role Phone Cristian Ling MD Primary Care Prov ider Encounter Details Date Type Department Care Team (Late st Contact Info) Description 05/10/2017 12:49 PM LIME SPREADER - 05/10/2017 8:36 PM LIME SPREADER [facility] Emergency Department [address] [place] [address] Unknown, Notinfile Discharge Disposition: Discharge to home or self care Social History Tobacco Use Types Packs/Day Years Used Date Smoking Tobacco: Never Assessed Comments Unknown Sex and Gender Information Value Date Recorded Sex Assigned at Not on file Legal Sex Female 7:12 AM LIME SPREADER Gender Identity Female 02/07/2021 4:33 PM CDT [...] W CONTRAST Routine 05/10/2017 1 0:48 PM LIME SPREADER XR CHEST PA LATERAL 2 VIEWS Routine 05/10/2017 8:01 PM LIME SPREADER TROPONIN I STAT 05/10/2017 7:19 PM LIME SPREADER URINALYSIS AND REFLEX TO MICROSCOPIC STAT 05/10/2017 5:16 PM LIME SPREADER PRO B-TYPE NATRIURETIC PEPTIDE STAT 05/10/2017 4:07 PM LIME SPREADER DIFFERENTIAL AUTO STAT 05/10/2017 2:2 9 PM LIME SPREADER CBC WITH AUTO DIFFERENTIAL STAT 05/10/2017 2:29 PM LIME SPREADER TROPONIN I STAT 05/10/2017 2:29 PM LIME SPREADER BASIC METABOLIC PANEL STAT 05/10/2017 2:29 PM LIME SPREADER DISCHARGE LABORATORY CUMULATIVE REPORT 05/10/2017 12:00 AM LIME SPREADER documented in this encounter Results * CT Chest W Contrast (05/10/2017 10:48 PM LIME SPREADER) Anatomical Region Laterality Modality Body N/A Computed Tomogra phy 05/10/2017 10:4 8 PM LIME SPREADER Narrative 05/10/2017 11:14 PM LIME SPREADER SHIRA UGALDE M.D. FINAL REPORT ACC# ??Date Time ??Exam [id number] May 10, 2017 16:48:[id number] Chest with contrast EXAMINATION: ??CT of [...] Ugalde M.D. Requested By: SYDNEY DAVEY [facility] Dictated By: ?? SHIRA UGALDE M.D. ??on May 10 2017 ??5:12P This document has been electronically signed by: SHIRA UGALDE M.D. on May 10 2017 ??5:12P [id number] UGALDE M.D. FINAL REPORT Attending: ??UNKNOWN, ??NOTINFILE Requesting: ??PETAR, ??SYDNEY Requesting Fax: ?? Attending Fax: ?? Attending ID: ??[id number] Requesting ID: ??[id number] Report To 1 ID: ??[id number] ? Report To 1 Name: ??, ?? Report To 1 FAX: ?? NextGen Order #: ?? Procedure Note Miscellaneous, Not In File - 05/10/2017 SHIRA UGALDE M.D. FINAL REPORT ACC# Date Time Exam [id number] May 10, 2017 16:48:[id number] Chest with contrast EXAMINATION: CT of [...] Shira Ugalde M.D. Requested By: SYDNEY DAVEY [facility] Dictated By: SHIRA UGALDE M.D. on May 10 2017 5:12P This document has been electronically signed by: SHIRA UGALDE M.D. on May 10 2017 5:12P [id number] UGALDE M.D. FINAL REPORT Attending: REBECCA GRECO Requesting: SYDNEY DAVEY Requesting Fax: Attending Fax: Attending ID: [id number] Requesting ID: [id number] Report To 1 ID: [id number] Report To 1 Name: , Report To 1 FAX: NextGen Order #: Sydney Davey MILK BOTTLING MACHINE OPERATOR IMG CT PROCEDURES Caitlyn l Result * XR Chest Pa Lateral 2 Views (05/10/2017 8:01 PM LIME SPREADER) Anatomical Region Laterality Modality Body, Chest N/A Radiographic Salima ging 05/10/2017 8:01 PM LIME SPREADER Narrative 05/10/2017 8:21 PM LIME SPREADER Penelope HILLMAN M.D. FINAL REPORT The radiology attending physician has personally reviewed this study, and has reviewed and/or edited this written report and agrees with it. ACC# ??Date Time ??Exam [id number] May 10, 2017 14:01:00 [id number] Chest 2 views Frontl ??and ??Lat EXAMINATION: [...] UGALDE M.D. on May 10 2017 ??2:19P [id number] HILLMAN M.D. FINAL REPORT The radiology attending physician has personally reviewed this study, and has reviewed and/or edited this written report and agrees with it. Attending: ??UNKNOWN, ??NOTINFILE Requesting: ??PAUL, ??BLAKE Requesting Fax: ?? Attending Fax: ?? Attending ID: ??[id number] Requesting ID: ??[id number] Report To 1 ID: ??[id number] ? Report To 1 Name: ??, ?? Report To 1 FAX: ?? NextGen Order #: ?? Procedure Note Miscellaneous, Not In File - 05/10/2017 Penelope HILLMAN M.D. FINAL REPORT The radiology attending physician has personally reviewed this study, and has reviewed and/or edited this written report and agrees with it. ACC# Date Time Exam [id number] May 10, 2017 14:01:00 [id number] Chest 2 views Frontl and Lat EXAMINATION: [...] UGALDE M.D. on May 10 2017 2:19P [id number] HILLMAN M.D. FINAL REPORT The radiology attending physician has personally reviewed this study, and has reviewed and/or edited this written report and agrees with it. Attending: REBECCA GRECO Requesting: BLAKE MILLER Requesting Fax: Attending Fax: Attending ID: [id number] Requesting ID: [id number] Report To 1 ID: [id number] Report To 1 Name: , Report To 1 FAX: NextGen Order #: us Blake Miller MD IMG XR PROCEDURES Final Result * Troponin I (05/10/2017 7:19 PM LIME SPREADER) Troponin I <0.03 0.00 - 0.03 ng/mL [facility] Comment: Interpretive Data Serial determinations are recommended for the diagnosis of myocardial infarction (Third Beaver Definition of Myocardial Infarction. ??J Am Karey Cardiol 2012;60:1581-98). Current interpretive data was last revised on 13. Blood specimen (specimen) 05/10/2017 7:19 PM LIME SPREADER 05/10/2017 7:23 PM LIME SPREADER us Mike Castellanos MD PhD LAB BLOOD ORDERABLES Final Result [facility] [place] [address] * Urinalysis reflex to microscopic (05/10/2017 5:16 PM LIME SPREADER) Pathologist [facility] Color, ur Straw Yellow [facility] Clarity, ur Clear Clear [facility] Specific gravity, ur 1.018 1.003 - 1.030 [facility] pH, ur 8.0 5.0 - 8.0 [facility] Albumin, ur Negative Trace [facility] Glucose, ur ql Negative Negative [facility] Ketones, ur Negative Negative [facility] Bilirubin, ur Negative Negative [facility] Blood, ur Negative Negative [facility] Urobilinogen, ur <2.0 <2.0 mg/dL [facility] Nitrites, ur Negative Negative [facility] Leukocyte esterase, ur Negative Negative [facility] Urine 05/10/2017 5:16 PM LIME SPREADER 05/10/2017 5:20 PM LIME SPREADER Sydney Davey MILK BOTTLING MACHINE OPERATOR LAB URINE ORDERABLES F inal Result Performing Organization Address City/State/[facility] Co de Phone Number [facility] [place] [address] * (ABNORMAL) Pro B-type natriuretic peptide (05/10/2017 4:07 PM LIME SPREADER) [facility] NT-proBNP 547(H) 0 - 299 pg/mL [facility] Comment: Interpretive Data Dyspnea in Acute Care [...] 2017. Blood specimen (specimen) 05/10/2017 4:07 PM LIME SPREADER 05/10/2017 4:07 PM LIME SPREADER Sydney Davey MILK BOTTLING MACHINE OPERATOR LAB BLOOD ORDERABLES F inal Result [facility] [place] [address] * Troponin I (05/10/2017 2:29 PM LIME SPREADER) Troponin I <0.03 0.00 - 0.03 ng/mL [facility] Comment: Interpretive Data Serial determinations are recommended for the diagnosis of myocardial infarction (Third Beaver Definition of Myocardial Infarction. ??J Am Karey Cardiol 2012;60:1581-98). Current interpretive data was last revised on 13. Blood specimen (specimen) 05/10/2017 2:29 PM LIME SPREADER 05/10/2017 2:43 PM LIME SPREADER Blake Miller MD LAB BLOOD ORDERABLES Final Res ult [facility] [place] [address] * Basic metabolic panel (05/10/2017 2:29 PM LIME SPREADER) Sodium 140 135 - 145 mmol/L [facility] Potassium, pl 4.1 3.3 - 4.9 mmol/L [facility] Chloride 105 97 - 110 mmol/L [facility] CO2 26 22 - 32 mmol/L [facility] BUN 14 8 - 25 mg/dL [facility] Glucose 107 70 - 199 mg/dL [facility] Comment: Interpretive Data Fasting glucose >/= 126 [...] 2017. Creatinine 0.90 0.60 - 1.10 mg/dL [facility] Calcium 10.1 8.5 - 10.3 mg/dL [facility] Anion gap 9 2 - 15 mmol/L [facility] Blood specimen (specimen) 05/10/2017 2:29 PM LIME SPREADER 05/10/2017 2:43 PM LIME SPREADER Blake Miller MD LAB BLOOD ORDERABLES Final Res ult Performing Organization Address City/[facility]/ZIP Co de Phone Number [facility] [place] [address] * Differential, auto (05/10/2017 2:29 PM LIME SPREADER) Neutrophil pct 68.3 % [facility] Imm gran pct 0.2 % [facility] Lymphocyte pct 23.4 % [facility] Monocyte pct 6.4 % [facility] Eosinophil pct 1.1 % [facility] Basophil pct 0.6 % [facility] Neutrophil abs 3.61 1.70 - 6.50 K/cumm [facility] Imm gran abs 0.01 0.00 - 0.10 K/cumm [facility] Lymphocyte abs 1.24 0.80 - 3.30 K/cumm [facility] Monocyte abs 0.34 0.20 - 0.80 K/cumm [facility] Eosinophil abs 0.06 0.00 - 0.50 K/cumm [facility] Basophil abs 0.03 0.00 - 0.10 K/cumm [facility] Blood specimen (specimen) 05/10/2017 2:29 PM LIME SPREADER 05/10/2017 2:43 PM LIME SPREADER us Blake Miller MD LAB BLOOD ORDERABLES Final Res ult [facility] [place] [address] * (ABNORMAL) CBC with auto differential (05/10/2017 2:29 PM LIME SPREADER) WBC 5.29 3.80 - 9.90 K/cumm [facility] RBC 3.92 3.90 - 5.20 M/cumm [facility] Hgb 11.9 11.9 - 15.5 g/dL [facility] Hct 37.0 35.6 - 45.5 % [facility] MCV 94.4 81.3 - 96.4 fL [facility] MCH 30.4 27.1 - 33.3 pg [facility] MCHC 32.2(L) 32.3 - 35.7 g/dL [facility] RDW CV 11.9 11.1 - 14.9 % [facility] RDW SD 41.5 35.7 - 48.1 fL [facility] Plt 221 150 - 400 K/cumm [facility] MPV 11.0 9.1 - 12.3 fL [facility] NRBC 0.0 0.0 - 0.2 % [facility] NRBC abs 0.00 0.00 - 0.01 K/cumm [facility] Blood specimen (specimen) 05/10/2017 2:29 PM LIME SPREADER 05/10/2017 2:43 PM LIME SPREADER us Blake Miller MD LAB BLOOD ORDERABLES Final Res ult Performing Organization Address City/State/[facility] Co de Phone Number [facility] [place] [address] * DISCHARGE LABORATORY CUMULATIVE REPORT (05/10/2017 12:00 AM LIME SPREADER) Narrative 05/10/2017 12:00 AM LIME SPREADER Ordered by an unspecified provider. us Historical Provider LAB BLOOD ORDERABLES Caitlyn l Result documented in this encounter Visit Diagnoses Not on filedocumented in this encounter Care Teams Plating Operator Relationship Specialty Start Date End Date Cristian Ling MD [address] [place] [address] PCP - General 10/16/16 documented as of this encounter
--- OUTSIDE RECORDS SUMMARY | 2024-06-12 04:35 | XMS_ITS | Encounter Summary ---
Author Organization [facility] Facility Care Team Providers Care Waiter/Waitress Club Name Role Phone Unavailable Primary Care Provider Unavailabl e Encounter Details Date Type Department Care Team (Late st Contact Info) Description 09/04/2015 - 09/04/2015 11:59 PM CDT Hospital Encounter [facility] Sami Johnson MD [address] [address] Encounter for general adult medical examination without abnormal findings; Essential (primary) hypertension Social History Tobacco Use Types Packs/Day Years Used Date Smoking Tobacco: Never Assessed Comments Unknown Sex and Gender Information Value Date Recorded Sex Assigned at Not on file Legal Sex Female 7:12 AM LIEUTENANT FIRE FIGHTER Gender Identity Female 02/07/2021 4:33 PM CDT [...]
--- OUTSIDE RECORDS SUMMARY | 2024-06-12 04:35 | XMS_ITS | Encounter Summary ---
Author Organization [facility] Address [address] [place] [address] Phone Care Team Providers Care Aws Solution Architect Name Role Phone Cristian Ling MD Primary Care Prov ider Encounter Details Date Type Department Care Team (Late st Contact Info) Description 12/24/2018 Orders Only [facility] Cardiology [address] [facility] Advanced Medicine [address]th [place] [address] [place] [phone] Deepali Jung RN Social History Tobacco Use Types Packs/Day Years Used Date Smoking Tobacco: Never Smokeless Tobacco: Never Comments Unknown Sex and Gender Information Value Date Recorded Sex Assigned at Not on file Legal Sex Female 7:12 AM HYDROGEN PLANT OPERATOR Gender Identity Female 02/07/2021 4:33 PM [...] on filedocumented in this encounter Care Teams Aws Solution Architect Relationship Specialty Start Date End Date Cristian Ling MD [address] [place] [address] PCP - General 10/16/16 documented as of this encounter
--- OUTSIDE RECORDS SUMMARY | 2024-06-12 04:35 | XMS_ITS | Encounter Summary ---
Author Organization [facility] Address [address] [place] [address] Phone Care Team Providers Care Health Information Tech Name Role Phone Cristian Ling MD Primary Care Prov ider Encounter Details Date Type Department Care Team (Late st Contact Info) Description 12/23/2018 12:10 PM CDT Lab [facility] Endocrinology Metabolism and Lipid [address] 8th [place] [address] [place] [address] Coronary artery disease involving [place] coronary artery of [place] heart without angina pectoris; Essential hypertension; Leg edema Social History Tobacco Use Types Packs/Day Years Used Date Smoking Tobacco: Never Smokeless Tobacco: Never Comments Unknown Sex and Gender Information Value Date Recorded Sex Assigned at Not on file Legal Sex Female 7:[address] CUTTER Gender Identity Female 02/07/2021 4:33 PM CDT Sexual Orientation Straight 02/07/2021 4: 33 PM CDT documented as of this encounter Plan of Treatment Not on file documented as of this encounter Procedures Procedure Name Priority Date/Time Associated Diagnosis Comments TSH Routine 12/23/2018 12:19 PM CDT Essential hypertension Leg edema LIPID PANEL Routine 12/23/2018 12:19 PM CDT Coronary artery disease involving [place] coronary artery of [place] heart without angina pectoris BASIC METABOLIC PANEL [...] 10.3 mg/dL [facility] eGFR NON-AFR. [place] 67.5 >60.0 mL/min/1.7 3 m2 [facility] [...] Visit Diagnoses Diagnosis Coronary artery disease involving [place] coronary artery of [place] heart without angina pectoris Essential hypertension Unspecified essential hypertension Leg edema Edema documented in this encounter Care Teams Health Information Tech Relationship Specialty Start Date End Date Cristian Ling MD [address] [place] [address] PCP - General 10/16/16 documented as of this encounter
--- OUTSIDE RECORDS SUMMARY | 2024-06-12 04:35 | XMS_ITS | Encounter Summary ---
Author Organization [facility] Facility Care Team Providers Care Surgical Aides Teacher Name Role Phone Unavailable Primary Care Provider Unavailabl e Encounter Details Date Type Department Care Team (Latest Contact Info) Description 10/05/2012 - 10/05/2012 11:59 PM CDT Hospital Encounter [facility] Beth Cee MD [address] [place] [address] Other follow-up examination; Postsurgical aortocoronary bypass status; Pleural effusion; Pulmonary collapse Social History Tobacco Use Types Packs/Day Years Used Date Smoking Tobacco: Never Assessed Comments Unknown Sex and Gender Information Value Date Recorded Sex Assigned at Not on file Legal Sex Female 7:12 AM MACHINE TOOL BUILDER Gender Identity Female 02/07/2021 4:33 PM [...] RESULTS - 10/05/2012 5:11 PM CDT ? [facility] ? Department of Laboratories ?[facility] [address] ?Heart ?? and ?? Vascular ?Center ?[address] [facility] Patient Name: ? JAMES LOBATO Med Rec Number: ?? [id number] Date of : ?1945 Gender/Age: ? Female [...] Lymph Pct Auto ??30.5 ?% ? 20.0-54.3 [place] Pct Auto ?? 10.8 ?% ? 4.3-13.5 Eos Pct Auto ?1.5 ? % ? 0.0-6.0 Baso Pct Auto ?? 0.9 ? % ? 0.0-3.0 Neut Abs Auto ?? 3.3 ? K/cumm ??1.8-6.6 Lymph Abs Auto ??1.8 ? K/cumm ??1.2-3.3 [place] Abs Auto ?? 0.6 ? K/cumm ??0.2-1.2 [...] agrees with it. ACC# ??Date Time ??Exam [id number] Oct 05, 2012 10:25:00 86400 Chest 2 views Frontl & Lat EXAMINATION: [...] agrees with it. ACC# Date Time Exam [id number] Oct 05, 2012 10:25:00 [id number] Chest 2 views Frontl & Lat EXAMINATION: [...]
--- OUTSIDE RECORDS SUMMARY | 2024-06-12 04:35 | XMS_ITS | Encounter Summary ---
Author Organization [facility] Address [address] [place] [address] Phone Care Team Providers Care Sourcing Engineer Name Role Phone Cristian Ling MD Primary Care Prov ider Reason for Visit * Cardiology (Routine) - Closed Specialty Diagnoses / Procedures Referred By Contac t Referred To Contact Cardiology Diagnoses 12M FU Procedures RETURN [facility] (All Locations) Sami Stafford MD [address] [facility] [address] [place] [address] Phone: tel: fax: Referral ID Status Reason Start Date Expiration Date Visits Re quested Visits Authorized [id number] Closed 12/14/2018 03/16/2019 3 3 Encounter Details Date Type Department Care Team (Late st Contact Info) Description 12/23/2018 11:00 AM CDT Office Visit [facility] Cardiology [address] [facility] 8th [place] [address] [place] [address] Sami Stafford MD [address] [facility] [address] [place] [address] Coronary artery disease involving [place] coronary artery of [place] heart without angina pectoris (Primary Dx); Essential hypertension; Leg edema Social History Tobacco Use Types Packs/Day Years Used Date Smoking Tobacco: Never Smokeless Tobacco: Never Comments Unknown Sex and Gender Information Value Date Recorded Sex Assigned at Not on file Legal Sex Female 7:12 AM CLINICAL RESEARCH MANAGEMENT ASSOCIATE Gender Identity Female 02/07/2021 4:33 PM [...] of Medicine Sami Stafford MD, MPHS, [facility] Cardiovascular Division Seamer Panty Hosebottom man Patient Name: Tiera Lobato : 1945 [...] female with the followin. CAD with prior MT and CABG. No recent angina. Continue aspirin, [...] or concerns. Sincerely, Sam[facility], [facility] Seamer Panty Hosebottom man Cardiovascular Division [facility] in [facility] --- Please note: This note was generated in part using voice-recognition software and may contain heading and priming tool setter errors. documented in this encounter Plan of Treatment Not on file documented as of this encounter Results * (ABNORMAL) Lipid panel (12/23/2018 12:19 PM CDT) Triglycerides 163(H) 0 - 149 mg/dL [facility] Total Cholesterol 180 0 - 199 mg/dL [facility] Comment: NATIONAL CHOLESTEROL EDUCATION PROGRAM ATP III [...] Direct 57 >39 mg/dL Brennan [facility] Ayden LDL Chol 90 0 - 129 mg/dL [facility] Blood specimen (specimen) 12/23/2018 12:19 PM CDT [...] 10.3 mg/dL [facility] eGFR NON-AFR. [place] 67.5 >60.0 mL/min/1.7 3 m2 [facility] [...] Visit Diagnoses Diagnosis Coronary artery disease involving [place] coronary artery of [place] heart without angina pectoris- Primary Essential hypertension [...] 9 added in this encounter Care Teams Sourcing Engineer Relationship Specialty Start Date End Date Cristian Ling MD [address] [place] [address] PCP - General 10/16/16 documented as of this encounter
== END 2024-06-09 16:17 ==
LOC: ANHED 06-05 01:29 → ANH3MED 06-05 03:05
PROVIDERS: Nurse Practitioner; Admitting Provider Internal Medicine; Emergency Provider Emergency Medicine; PCP Family Medicine Adolescent Medicine; Visit Provider Student in an Organized Health Care Education/Training Program
DX: S22.071A Stable burst fracture of T9-T10 vertebra, initial encounter for closed fracture (principal); X58.XXXA Exposure to other specified factors, initial encounter; M54.10 Radiculopathy, site unspecified; E87.1 Hypo-osmolality and hyponatremia; M81.0 Age-related osteoporosis without current pathological fracture; S80.11XD Contusion of right lower leg, subsequent encounter; K59.04 Chronic idiopathic constipation; K56.0 Paralytic ileus; I25.10 Atherosclerotic heart disease of native coronary artery without angina pectoris; I48.0 Paroxysmal atrial fibrillation; I42.2 Other hypertrophic cardiomyopathy; I95.1 Orthostatic hypotension; I12.9 Hypertensive chronic kidney disease with stage 1 through stage 4 chronic kidney disease, or unspecified chronic kidney disease; N18.31 Chronic kidney disease, stage 3a; K21.9 Gastro-esophageal reflux disease without esophagitis; H81.10 Benign paroxysmal vertigo, unspecified ear; Z79.01 Long term (current) use of anticoagulants; Z79.899 Other long term (current) drug therapy; Z86.718 Personal history of other venous thrombosis and embolism; Z95.1 Presence of aortocoronary bypass graft
CPT/HCPCS: 36415; 71260; 74018; 74177; 80048; 80053; 85025; 85027; 96374; 97110; 97116; 97161; 97165; 99285; A9270; G0378; J2270; J2405; Q9967

== ENCOUNTER 2024-08-10 09:38 | Observation (INO) | payer OTHER, MEDICAID, SELFPAY ==
[2024-08-10] VITALS (21 sets, daily range): BP systolic 114–153; BP diastolic 59–80; PULSE 60–151; RESP 16–23; TEMP 36.1–37.2; O2SAT 95–100; BMI 23.1
--- NOTE | ~2024-08-10 | CT_ITS ---
CLINICAL INDICATION: Constipation and abdominal pain COMPARISON: 06/04/2024. TECHNIQUE: Multiple contiguous axial images of the abdomen and pelvis were performed following the ad ministration of with 100 mL Omnipaque-350 intravenous contrast The dose-length product (DLP) was 324.79 mGy-cm. Automated exposure control and iterative reconstruction technique were employed. FINDINGS/OBSERVATIONS: Visualized lower thorax: Coarse bibasilar lung markings with bibasilar atelectasis. The heart is enlarged, without pericardial effusion. Liver: Liver enhances homogeneously and is not enlarged measuring 15 cm in longitudinal dimension. Pneumobilia is redemonstrated. Gallbladder and biliary system: The gallbladder is acutely absent. Pancreas: The pancreas enhances homogeneously without ductal dilatation. Spleen: The spleen enhances homogeneously and is not enlarged measuring 8 cm in longitudinal dimension. Kidneys: Multiple rounded foci of fluid attenuation within the bilateral kidneys, left greater than r ight. These are unchanged from previous examination and statistically representing cysts. The remainder of the bilateral kidneys otherwise enhance symmetrically without hydronephrosis or amol l calculi. 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 The right adrenal gland is unremarkable. Gastrointestinal tract: Fecal stasis distends the rectum to the level of the sigmoid colon consistent with fecal impaction. T he more proximal colon is fluid-filled and distended. Appendix: The air-filled appendix is of normal caliber (axial series, image 89). Vasculature: Densely calcified atherosclerotic disease. The abdominal aorta is tortuous without ruby aneurysmal dilatation Lymph nodes: No pathologically enlarged or morphologically suspicious lymph nodes within the retroperitoneum or at the root of the mesentery. Pelvic structures: The bladder is only minimally distended, and otherwise unremarkable. The uterus is either atrophic or surgically absent. Body wall and musculoskeletal: Small fat-containing umbilical hernia. Fracture deformity of the vertebral bodies of T11 and T12, unchanged from prior study, likely chronic . IMPRESSION: Findings consistent with fecal impaction to the level of the sigmoid colon, likely the cause of patie nt's abdominal pain. No additional acute findings. Innumerable nonacute findings, as detailed above. Reviewed, dictated and finalized at location A. [employer] PATROLLER IMPRESSION: Findings consistent with fecal impaction to the level of the sigmoid colon, lik esther the cause of patient's abdominal pain. No additional acute findings. Innumerable nonacute findings, as detailed above.
--- NOTE | 2024-08-10 09:51 | ECG_ITS ---
Test Date: 2024-08-10 09:49:47 Measurements Intervals [place] Rate: 139 P: 0 AL: 0 QRS: -20 QRSD: 116 T: 144 QT: 296 QTc: 451 Interpretive Statements ATRIAL FIBRILLATION WITH RAPID VENTRICULAR RESPONSE INTRAVENTRICULAR CONDUCTION DELAY LEFT VENTRICULAR HYPERTROPHY WITH ST-T CHANGE BASELINE ARTIFACT- I, II, III, AVR, AVL, AVF, V1-V2, V4 ABNORMAL ECG Compared to ECG 11/20/2023 08:26:08 SINUS BRADYCARDIA NO LONGER PRESENT Electronically Signed On 08-10-2024 11:19:51 GLOST KILN PLACER by Dannie Younger D.O.
--- NOTE | 2024-08-10 09:52 | ED.ABDPAIN ---
HPI - Abdominal Pain General Chief Complaint: Abdominal Pain Stated Complaint: constipation Time Seen by Provider: 08/10/24 09:52 Source: patient Mode of arrival: EMS Limitations: no limitations History of Present Illness HPI narrative: This is a 79-year-old female with PMH of chronic constipation, pancreatitis, hepatitis, CKD, paroxysmal AFib, diverticulitis, CAD, carotid artery stenosis who presents to the ED via EMS from [facility] for chief complaint of abdominal pain and constipation x1 week. States that she did have a small bowel movement prior to EMS arrival today and does feel some relief with this bowel movement. Reports it as liquidy. Endorses nausea but no vomiting. Patient also reports palpitations and does report history of atrial fibrillation. States she is taking her blood thinners prescribed as well as metoprolol as prescribed. Denies chest pain, shortness of breath, excessive diarrhea, back pain, fevers, chills. Reports abdominal surgical history of bowel resection he, cholecystectomy. Other surgical history of CABG Related Data Home Medications ?Medication ?Instructions ?Recorded ?Confirmed ?Last Taken ?Type amiodarone 200 mg tablet 400 mg PO DAILY 04/15/23 06/10/24 06/04/24 History atorvastatin 80 mg tablet 80 mg PO HS 04/15/23 06/10/24 06/03/24 History bisacodyl 10 mg rectal suppository 10 mg RECTAL DAILY PRN Constipation 04/15/23 06/10/24 Unknown History (Dulcolax (bisacodyl)) calcium 500 mg (as 1 tablet PO DAILY 04/15/23 06/10/24 06/04/24 History carbonate)-vitamin D3 5 mcg (200 unit) tablet (Oyster Shell Calcium-Vitamin D3) pantoprazole 40 mg tablet,delayed 40 mg PO QAM 04/15/23 06/10/24 06/04/24 History release sertraline 50 mg tablet 50 mg PO DAILY 04/15/23 06/10/24 06/04/24 History loperamide 2 mg capsule 2 mg PO DAILY PRN loose stool 06/05/24 06/10/24 Unknown History metoprolol succinate 25 mg 25 mg PO DAILY 06/05/24 06/10/24 06/04/24 History tablet,extended release 24 hr ondansetron 4 mg disintegrating 4 mg PO Q8H PRN nausea and vomiting 06/05/24 06/10/24 Unknown History tablet Allergies Allergy/AdvReac Type Severity Reaction Status Date / Time codeine Allergy Unknown Anaphylaxis Verified 08/10/24 10:22 Latex, Natural Rubber Allergy Unknown SKIN Verified 08/10/24 10:22 IRRITATION nitroglycerin AdvReac Severe Hypotension Verified 08/10/24 10:22 tramadol AdvReac Mild Nausea and Verified 08/10/24 10:22 Vomiting, HEADACHE, DIZZINESS Review of Systems Review of Systems: All systems as dictated in [facility] Past Medical History Medical History (Updated 08/10/24 @ 13:06 by Chel Parker APRN) Old myocardial infarction (~2012) Peripheral vascular disease, unspecified Pancreatic cyst Hypertrophic cardiomyopathy Apical variant noted on cardiac MRI 08/22/2022 Coronary artery disease Aortic atherosclerosis (~2006) Acute pancreatitis (03/2022) Choledocholithiasis Status post ERCP with post ERCP pancreatitis at [place] 12/03/2023 Acute hepatitis (11/15/23) Due to medications verses choledocholithiasis Chronic kidney disease Stage III A Chronic anemia Paroxysmal atrial fibrillation History of cardioversion in January 2023 Deep venous thrombosis 1960s Intra-articular fracture of distal end of right radius with volar angulation Close reduction January 2023 Benign positional vertigo Diverticulitis With history of perforation Chronic lower back pain Osteoporosis Hyperlipidemia Cardiorenal syndrome with renal failure Lumbar spinal stenosis Compression fracture of thoracic spine, non-traumatic (2017) T11 Gastro-esophageal reflux disease without esophagitis Occlusion and stenosis of bilateral carotid arteries Chronic idiopathic constipation Surgical History Surgical History (Updated 08/10/24 @ 13:04 by Chel Parker APRN) History of cataract extraction with lens replacement History of coronary artery bypass graft x 2 (2012) LAWSON to LAD and saphenous vein graft to obtuse marginal History of bowel resection (1992) Due to prior bowel perforation History of cholecystectomy History of total right knee replacement (2017) History of lumbar surgery (1998) Lumbar diskectomy Family History Family History Father Malignant neoplasm of prostate Mother Alzheimer's dementia Sibling Alzheimer's dementia Social History Social History Social History: Surrogate medical decision maker: Storm Londonkathy, son. Code status: Full code. Smoking status: Never smoker Second hand tobacco smoke exposure: Yes Alcohol intake: never Substance use: former Substance use type: painkillers Do You Feel Safe in your Home?: Yes Lack of Transportation: YES Lack of Food: Never True Current Housing: I Have Housing Concerned About Future Housing: No Difficulty Paying Gas/Electric Bills: No Difficulty Paying for Meds: No Currently Unemployed: No Education: High School Diploma/GED Difficulty w/ Childcare or Family Care: No Living arrangements: assisted living Additional living arrangements comments: . She has 3 sons. Ambulates with a walker. Spiritual care concerns: No Agree to blood products: Yes Exam Narrative: GENERAL: Well-appearing, well-nourished, and in no acute distress. HEAD: Normocephalic, atraumatic. EYES: PERRLA and EOMI. ENT: Nares clear, no rhinorrhea or epistaxis. Mucous membranes moist. Oropharynx without tonsillar hypertrophy exudate or other lesions. NECK: Supple. No adenopathy or masses. CHEST: No respiratory distress. Clear to auscultation. No wheezes rales or rhonchi HEART: Irregularly irregular rate/rhythm. Tachycardic in the 160s. No murmur heard. Normal peripheral pulses. ABDOMEN: Soft, nontender, nondistended, normal active bowel sounds. MSK: Normal range of motion. No edema. SKIN: Warm, dry, no rash. NEURO: Alert and oriented x4. No focal deficits. PSYCH: Normal mood and affect. Procedures Rectal Disimpaction Rectal Disimpaction #1: Rectal Disimpaction Date: 08/10/24 Rectal Disimpaction Time: 11:46 Time out performed rectal disimpaction: No Indication: fecal impaction Procedural Sedation: No Sedation/Analgesia: none Technique: manual disimpaction with gloved finger Result: significant stool output Patient Tolerated Procedure: well Complications: none Course Vital Signs Vital signs: Vital Signs Temperature 97.5 F L 08/10/24 09:41 Pulse Rate 138 H 08/10/24 09:41 Respiratory Rate 22 H 08/10/24 09:41 Blood Pressure 123/77 08/10/24 09:41 Pulse Oximetry 100 08/10/24 09:41 Oxygen Delivery Room Air 08/10/24 09:41 Temperature 99.0 F 08/10/24 17:56 Pulse Rate 69 08/10/24 17:56 Respiratory Rate 18 08/10/24 17:56 Blood Pressure 149/66 H 08/10/24 17:56 Pulse Oximetry 99 08/10/24 17:56 Oxygen Delivery Room Air 08/10/24 09:41 MDM - Abdominal Pain MDM Narrative Medical decision making narrative: This is a 79-year-old female who presents to the ED for chief complaint of abdominal pain and constipation for 1 week. Vitals show patient is tachycardic on arrival and slightly tachypneic in the low 20s. EKG initially showing atrial fibrillation with RVR, rate in the 160s on monitor. Pressure stable in the 120s. Afebrile. Exam remarkable for the above, however no significant abdominal distension present. Lab work remarkable for elevated lactate of 2.8. Suspect due to dehydration/starvation. Mildly leukopenic at 3.8. Bicarb slightly low at 19 and slightly elevated anion gap of 16. LFTs are normal. UA unimpressive overall, culture pending. CT abdomen pelvis with IV contrast: IMPRESSION: Findings consistent with fecal impaction to the level of the sigmoid colon, likely the cause of patient's abdominal pain. No additional acute findings. Innumerable nonacute findings, as detailed above. Patient was given initial 10 mg diltiazem push with decent response for the AFib RVR. She then started to creep up in the 150s again is so was given additional 10 mg push. She was started on diltiazem drip with rates staying in the 110s. Also perform digital rectal disimpaction for the fecal impaction seen on CT scan. Patient did have significant relief after this procedure. She has been having increased back pain due to recent history of thoracic t9 burst fracture. She was given hydrocodone here. I do feel that her fecal impaction today is likely due to the increased use opioids over the past couple of months with her T9 fracture. Plan to admit patient for AFib RVR, constipation and pain control for her back. Discussed the case with hospitalist, PILO Milligan who agrees to admit the patient to IMU for the above. Lab Data 08/10/24 10:12 08/10/24 10:12 Labs: Lab Results 08/10/24 08/10/24 08/10/24 Range/Units 10:12 11:44 12:25 WBC 3.8 L (4.5-10.0) K/mm3 RBC 3.41 L (4.2-5.4) M/mm3 Hgb 11.4 L (12.0-15.0) g/dL Hct 35.0 L (37.0-47.0) % MCV 102.6 H (80-100) fl MCH 33.4 (26-34) pg MCHC 32.6 (32-36) g/dl RDW 13.2 (11.5-14.5) % Plt Count 159 (150-375) k/mm3 MPV 11.1 H (7.4-10.4) fl Immature Gran % (Auto) 0.3 (0-0.5) % Neut % (Auto) 61.0 (45.5-73.1) % Lymph % (Auto) 28.2 (18.3-44.2) % [place] % (Auto) 8.1 (2.6-8.5) % Eos % (Auto) 1.6 (0-4.4) % Baso % (Auto) 0.8 (0.2-1.2) % Lymph # (Auto) 1.08 (0.9-3.2) K/mm3 [place] # (Auto) 0.3 (0.1-0.6) K/mm3 Eos # (Auto) 0.1 (0-0.3) K/mm3 Baso # (Auto) 0.0 (0.0-0.1) K/mm3 Abs Immat Gran (auto) 0.01 (0.00-0.031) K/mm3 Absolute Neuts (auto) 2.3 (1.3-6.7) K/mm3 Absolute Nucleated RBC 0.000 (0.0-0.012) K/mm3 Nucleated RBC % 0.0 (0.0-0.2) % Sodium 139 (137-145) mmol/L Potassium 4.1 (3.4-5.0) mmol/L Chloride 104 (98-107) mmol/L Carbon Dioxide 19 L (22-30) mmol/L Anion Gap 16 H (4-12) mmol/L BUN 16 D (7-17) mg/dL Creatinine 0.98 (0.7-1.0) mg/dL Estim Creat Clear Calc 35 ml/min Estimated GFR 55 L (59 - ) Glucose 135 H (65-110) mg/dL Lactic Acid 2.8 H (0.7-2.0) mmol/L Calcium 10.2 (8.4-10.2) mg/dL Total Bilirubin 1.1 (0.2-1.3) mg/dL AST 23 (14-36) U/L ALT 16 (6-35) U/L Alkaline Phosphatase 56 (38-126) U/L Total Protein 8.0 (6.3-8.2) g/dL Albumin 4.3 (3.5-5.1) g/dL Lipase 85 (23-300) U/L Urine Color Yellow (Yellow) Urine Appearance Clear (Clear) Urine pH 6.5 (5.0-9.0) Ur Specific [place] 1.018 (1.001-1.035) Urine Protein Negative (Negative) mg/dL Urine Glucose (UA) Negative (Negative) mg/dL Urine Ketones Negative (Negative) mg/dL Ur Blood (Man) Negative (Negative) Urine Nitrate Negative (Negative) Urine Bilirubin Negative (Negative) Urine Urobilinogen 1.0 (<2.0) mg/dL Leukocyte Esterase Rfl Trace H (Negative) BETTY/UL Urine RBC 0-2 (0-2) /hpf Urine WBC 6-10 H (0-3) /hpf Ur Squamous Epith Cells None seen (Few) /hpf Urine Bacteria 4+ H /hpf Urine Casts 0-2 Influenza A (RT-PCR) Negative (Negative) Influenza B (RT-PCR) Negative (Negative) RSV (RT-PCR) Negative (Negative) SARS-CoV-2 RNA (RT-PCR) Negative (Negative) Imaging Data Radiologist's impression: ITS Impressions Abdomen/Pelvis CT 08/10/24 10:58 IMPRESSION: Findings consistent with fecal impaction to the level of the sigmoid colon, likely the cause of patient's abdominal pain. No additional acute findings. Innumerable nonacute findings, as detailed above. ECG Data EKG #1: ECG completion date: 08/10/24 ECG completion time: 09:49 Prior ECG tracings: available for review Interpretation: Atrial fibrillation with RVR Rate 139 Normal QTC No acute ischemia Discharge Plan Discharge Clinical Impression: Atrial fibrillation with rapid ventricular response, Fecal impaction Patient Disposition: Still a Patient Condition: Stable
[2024-08-10] MEDS: SODIUM CHLORIDE 0.9% IV 1,000 ML 999 ML IV CONT ×2 (10:14→11:25)
[2024-08-10] MEDS: ONDANSETRON INJ 4 MG/2 ML VIAL IV PUSH (10:16)
[2024-08-10] MEDS: dilTIAZem HCl INJ 25 MG/5 ML VIAL 10 MG IV PUSH ×2 (10:17→11:25)
[2024-08-10 10:21] LABS: Basophils Percent Auto 0.8 % (0.2-1.2); Eosinophils Absolute Auto 0.1 K/mm3 (0-0.3); Eosinophils Percent Auto 1.6 % (0-4.4); Hemoglobin 11.4 g/dL (12.0-15.0); Immature Granulocyte Absolute 0.01 K/mm3 (0.00-0.031); Immature Granulocyte Percent A 0.3 % (0-0.5); Lymphocytes Absolute Auto 1.08 K/mm3 (0.9-3.2); Lymphocytes Percent Auto 28.2 % (18.3-44.2); Mean Corpuscular HGB Conc 32.6 g/dl (32-36); Mean Corpuscular Hemoglobin 33.4 pg (26-34); Mean Corpuscular Volume 102.6 fl (80-100); Mean Platelet Volume 11.1 fl (7.4-10.4); Monocytes Absolute Auto 0.3 K/mm3 (0.1-0.6); Monocytes Percent Auto 8.1 % (2.6-8.5); Neutrophils Absolute Auto 2.3 K/mm3 (1.3-6.7); Platelet Count Result 159 k/mm3 (150-375); Red Blood Count 3.41 M/mm3 (4.2-5.4); Red Cell Distribution Width 13.2 % (11.5-14.5); White Blood Count 3.8 K/mm3 (4.5-10.0)
[2024-08-10 10:33] LABS: Lactic Acid Reflex 2.8 mmol/L (0.7-2.0)
[2024-08-10 10:34] LABS: Alanine Aminotransferase 16 U/L (6-35); Albumin Level 4.3 g/dL (3.5-5.1); Alkaline Phosphatase 56 U/L (38-126); Anion Gap 16 mmol/L (4-12); Aspartate Amino Transferase 23 U/L (14-36); Bilirubin,Total 1.1 mg/dL (0.2-1.3); Blood Urea Nitrogen 16 mg/dL (7-17); Calcium 10.2 mg/dL (8.4-10.2); Carbon Dioxide 19 mmol/L (22-30); Chloride 104 mmol/L (98-107); Estimated CRCL calculation 35 ml/min; Estimated Glomerular Filt Rate 55; Glucose 135 mg/dL (65-110); Lipase 85 U/L (23-300); Potassium 4.1 mmol/L (3.4-5.0); Sodium 139 mmol/L (137-145)
[2024-08-10] MEDS: dilTIAZem 100 MG/100 ML 100 MG/100 ML BAG IV CONT (11:17)
[2024-08-10] MEDS: HYDROcodone/acetaminophen (*CRX) 5-325 MG TABLET 1 TAB PO ×2 (11:43→20:00)
--- OUTSIDE RECORDS SUMMARY | 2024-08-10 12:03 | XMS_ITS | Referral Summary ---
Author Organization [facility] Address [facility] [place] [address] Care Team Providers Care Social Science Manager Name Role Phone Cristian Ling MD [...] spine films at that time. History of [place] (myocardial infarction) 12/10/2017 Overview (12/10/2017): 2012 Primary hypertension 11/06/2012 Coronary artery disease invo lving [place] coronary artery of [place] heart without angina pectoris 09/23/2012 Hx of CABG 09/23/2012 Assessment & Plan (11/29/2023 1:03 PM CDT): - continue home metoprolol XL 25mg daily - continue home atorvastatin 80mg daily - continue home zetia Immunizations Immunization Administration Dates Next Due Moderna SARS-CoV-2 Monovalent Vaccination (12+ Y RS) 09/06/2020,08/09/2020 Social History Tobacco Use Types Packs/Day Years Used Date Smoking Tobacco: Never Passive Smoke Exposure: Current Smokeless Tobacco: Never Tobacco Cessation:Counseling Given: Not Answered [facility] Utilities Answer Date Recorded [...] should administer the PHQ-9) 0 09/28/2020 [facility] - Occupational Stress Questionnaire Answer Date [...] any time in the past 12 m [facility], were you homeless or living in [...] file Legal 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 Gender Identity Female 02/07/2021 4:33 PM CDT Sexual Orientation Straight 02/07/2021 4: 33 PM CDT Last Filed Vital Signs Vital Sign Reading Time Taken Comments Blood Pressure 149/70 01/12/2024 11:40 AM CDT Pulse 54 01/12/2024 11:40 AM CDT Temperature 36 C (96.8 F) 01/12/2024 10:50 AM CDT Respiratory Rate 12 01/12/2024 11:40 AM CDT Oxygen Saturation 99% 01/12/2024 11:40 AM CDT Inhaled Oxygen Concentration - - Weight 65.3 kg (144 lb) 01/12/2024 10:10 AM CDT Height 162.6 cm (5' 4 ) 01/12/2024 10:10 AM CDT Body Mass Index 24.72 01/12/2024 10:10 AM CDT Plan of Treatment Not on file Medical Devices Implanted Type Area Swedish Masseuse Device Identifier Shelf Expiration Date Model / Serial / Lot Rt Total Knee Arthroplasty Right: Knee Cataract-Lens Implant Eye iZettle Viabil 10 Mm X 4cm Shortwire [id number] - [id number] - [id number] Implanted:Qty: 1 on 11/26/2023 by Heydi Fenton MD at [facility] iZettle 06/01/2026 [id number] / [id number] / Procedures Procedure Name Priority Date/Time Associated Diagnosis Comments HEPATITIS PANEL, ACUTE STAT 11/24/2023 12:01 PM CDT from Last 3 Months or Most Recently Relevant to Health Maintenance Results * Hepatitis panel, acute Blood (11/24/2023 12:01 PM CDT) Hep A IgM Nonreactive Nonreactive Hep B core IgM Nonreactive Nonreactive [facility] Hep C Ab Nonreactive Nonreactive [facility] Comment:Antibodies to HCV no t detected. Does NOT exclude the possibility of recent exposure to HCV. Current interpretive data was last revised on 22 HepBsAg Nonreactive [facility] Blood 11/24/2023 12:0 1 PM CDT 11/24/2023 12:20 PM CDT Kassidy Cunningham MD LAB MICROBIOLOGY - G ENERAL ORDERABLES Final Result Performing Organization Address City/State/[facility] Co de Phone Number [facility] Department [place] [address] from Last 3 Months or Most Recently Relevant to Health Maintenance Insurance [facility] Member Subscriber Plan / Payer (Ef fective 2017-Present) Name:Tiera Lobato Relation to Subscriber:Self Name:Tiera Lobato Payer ID:[id number] (NAIC) Type:MEDICARE RISK OTHER Address: [address] [facility] Advance Directives For more information, please contact: [phone] * Full Code (Latest Code Status on File) Date Activated Date Inactivated Comments 01/12/2024 9:55 AM 01/12/2024 3:53 PM * Full Code Date Activated Date Inactivated Comments 11/26/2023 1:02 PM 12/03/2023 7:36 PM * Full Code Date Activated Date Inactivated Comments 11/25/2023 6:29 PM 11/26/2023 1:02 PM * Full Code Date Activated Date Inactivated Comments 02/17/2023 5:25 PM 03/21/2023 7:10 PM Care Teams Social Science Manager Relationship Specialty Start Date End Date Cristian Ling MD [address] [place] [address] PCP - General 10/16/16
--- OUTSIDE RECORDS SUMMARY | 2024-08-10 12:03 | XMS_ITS | Patient Health Record ---
Author Organization [facility] Address [address] [place] [address] Care Team Providers Care Bottom Hoop Driver Name Role Phone Cristian Pollard Primary Care Provider Unavail able Curtis Gonzalez Unavailable [phone] Maxx Pratt Unavailable Unavailable ALLERGIES Allergen (clinical [...] (F40.231) Active confirmed Fear of medical treatment (410665062) Problem Essential (primary) hypertension (I10) Active confirmed Essential hypertension (04060667) Problem Radiculopathy, lumbar region (M54.16) Active confirmed Lumbar radiculopathy (757749297) PLAN OF TREATMENT No Information Insurance Providers Payer Name Payer Address Payer Phone Subscriber Number Group Number Insured Name Patient Relationship to Insured Coverage Start Date Coverage End Date ESSENCE [address] [place] [id number] Tiera Lobato Self - patient is the insured MEDICAL (GENERAL) HISTORY Medical History History ICD Code high blood pressure heart attack osteoarthtitis headaches irritable bowel syndrome diverticulosis Surgical History Surgery Date(Month/Year) colon burst 1992 back surgery 1998 double bypass 2012 right knee replacement 2017
--- OUTSIDE RECORDS SUMMARY | 2024-08-10 12:03 | XMS_ITS | Clinical Summary ---
Author Organization [facility] Address [facility] [place] [address] Care Team Providers Care Crisis Intervention Counselor Name Role Phone Cristian Ling MD [...] Plan (12/01/2023 12:47 PM CDT): Follows with [facility] Hematology. Anemia thought to be due to iron deficiency as well as CKD stage IIIb. Received iron infusion in 09/2023. On admission hgb 8.4 (bl 7- 9). Iron 72, ferritin 1715. - Stable H/H, last 8.5 NSVT (nonsustained ventricular tachycardia) 11/2023 A-fib (CMS/HCC) 02/17/2023 Assessment & Plan (12/01/2023 12:47 PM CDT): Follows with [facility] Cardiology. History of afib with difficulty [...] spine films at that time. History of UT (myocardial infarction) 12/10/2017 Overview (12/10/2017): 2012 Primary hypertension 11/06/2012 Coronary artery disease invo lving [place] coronary artery of [place] heart without angina pectoris 09/23/2012 Hx of CABG 09/23/2012 Assessment & Plan (11/29/2023 1:03 PM CDT): - continue home metoprolol XL 25mg daily - continue home atorvastatin 80mg daily - continue home zetia Immunizations Immunization Administration Dates Next Due Moderna SARS-CoV-2 Monovalent Vaccination (12+ Y RS) 09/06/2020,08/09/2020 Surgical History Surgery Date Site/Laterality Comments CORONARY ARTERY BYPASS GRAFT 06/16/2012 - 06/15/2013 Double by-pass - [facility] COLON SURGERY 06/16/1992 - 06/15/1993 Repair burst colon MICRODISCECTOMY 06/16/1998 - 06/15/1999 Dr. James ([place], [place]) TOTAL KNEE ARTHROPLASTY 06/16/2017 - 06/15/2018 Right FLUORO GUIDED INJECTION HIP RIGHT 05/16/2022 Right FLUORO GUIDED INJECTION HIP RIGHT 08/15/2022 Right FLUORO GUIDED INJECTION HIP RIGHT 12/10/2022 Right CARDIOVERSION 03/16/2023 - 04/15/2023 FLUORO GUIDED INJECTION HIP RIGHT 05/13/2023 Right FLUORO GUIDED INJECTION HIP RIGHT 03/17/2024 Right Medical History Medical History Date Comments Vertigo History of UT (myocardial infarction) 2012 Heart murmur High cholesterol HTN (hypertension) Acid reflux IBS (irritable bowel syndrome) History of blood clots 1960s in leg as teenager - had phlebitis History of vertebral fracture 2017 Family History Medical History Relation Name Comments Hypertension Child Son Stroke Child Son Prostate cancer Father Relation Name Status Comments Child Son Father Social History Tobacco Use Types Packs/Day Years Used Date Smoking Tobacco: Never Passive Smoke Exposure: Current Smokeless Tobacco: Never Tobacco Cessation:Counseling Given: Not Answered [facility] [employer] Answer Date Recorded In the past 12 months has e [employer], gas, oil, or water tocario threatened to shut off services in your [...] How often do you attend hinduism or anabaptist serv ices? 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 Gender Identity Female 02/07/2021 4:33 PM [...] Done Comments Osteoporosis Screening-Bone Density Scan 1946 DTaP/Tdap/Td Vaccine (1 - Tdap) 1957 Hepatitis B Screening 1964 Pneumococcal vaccine 65+ (1 of 2 - PCV) 1965 Zoster Vaccine (1 of 2) 1996 Well Visit 65+ 2011 Depression Screening 09/28/2021 09/28/2020, 09/29/19 21 Covid-19 Vaccine ( season) 2024, 08/09/2020 Influenza Vaccine (#1) 2024 Fall Risk Assessment 01/11/2025 01/12/2024 Hepatitis C Screening Completed 11/24/2023 Medical Devices Implanted Type Area Rail Washer Device Identifier Shelf Expiration Date Model / Serial / Lot Rt Total Knee Arthroplasty Right: Knee Cataract-Lens Implant Eye [employer] Viabil 10 Mm X 4cm Shortwire [id number] - [id number] - [id number] Implanted:Qty: 1 on 11/26/2023 by Heydi Fenton MD at [facility] [employer] 06/01/2026 [id number] / [id number] / Procedures Procedure Name Priority Date/Time Associated Diagnosis Comments HEPATITIS PANEL, ACUTE STAT 11/24/2023 12:01 PM CDT from Last 3 Months or Most Recently Relevant to Health Maintenance Results * Hepatitis panel, acute Blood (11/24/2023 12:01 PM CDT) Hep A IgM Nonreactive Nonreactive Hep B core IgM Nonreactive Nonreactive [facility] Hep C Ab Nonreactive Nonreactive [facility] Comment:Antibodies to HCV no t detected. Does NOT exclude the possibility of recent exposure to HCV. Current interpretive data was last revised on 22 HepBsAg Nonreactive Nonreactive [facility] Blood 11/24/2023 12:0 1 PM CDT 11/24/2023 12:20 PM CDT us Kassidy Cunningham MD LAB MICROBIOLOGY - G ENERAL ORDERABLES Final Result [facility] Department [place] [address] from Last 3 Months or Most Recently Relevant to Health Maintenance Insurance [facility] Member Subscriber Plan / Payer (Ef fective 2017-Present) Name:Tiera Lobato Relation to Subscriber:Self Name:Tiera Lobato Payer ID:[id number] (NAIC) Type:MEDICARE RISK OTHER Address: [address] [facility] IDOH [facility] Member Subscriber Plan / Payer (Ef fective 2021-Present) Name:NicolleTiera mattson Relation to Subscriber:Self Name:Tiera Lobato Filemon Payer ID:[id number] (NAIC) Type:MEDICARE RISK OTHER Address: [address] [facility] Advance Directives For more information, please contact: [phone] * Full Code (Latest Code Status on File) Date Activated Date Inactivated Comments 01/12/2024 9:55 AM 01/12/2024 3:53 PM * Full Code Date Activated Date Inactivated Comments 11/26/2023 1:02 PM 12/03/2023 7:36 PM * Full Code Date Activated Date Inactivated Comments 11/25/2023 6:29 PM 11/26/2023 1:02 PM * Full Code Date Activated Date Inactivated Comments 02/17/2023 5:25 PM 03/21/2023 7:10 PM Care Teams Crisis Intervention Counselor Relationship Specialty Start Date End Date Cristian Ling MD [address] [place] [id number] PCP - General 10/16/16
--- OUTSIDE RECORDS SUMMARY | 2024-08-10 12:03 | XMS_ITS | Continuity of Care Document ---
Author Name Auto Generated, Auto Generated Organization [facility] Support Name Relationship Address Phone Storm Lobato Emergency Contact 1 Unknown Unavai labStorm [place] Son Unknown Unavailable Jonny Lobato & Liv Son Unknown [phone] SuryaAnil chavez Son Unknown Unavailable Cheryle Tiera Financial Responsibl e [employer] [address] [place] [address] CheryleTiera Self [address] [place] [address] Jonny Lobato & Liv Hestkyed-xz-Lbl Unknown [phone] Cheryle, Jonny & Liv Emergency Contact 2 Unknown Summary Purpose Consult/Referral Allergies, Adverse Reactions, Alerts Type Description/Agent Code Date Allergy Active Date Allergy Inactivated Date of Last Reaction Adverse Reactions Severity Status Comments Source of Information [facility]DB Medic ation Ingre dient nitroglycerin Active Pat ient History [facility]DB Medic ation Ingre dient cheese 03/24/20 23 3 Diarrhea Severe Active Patient History Food Milk Active Patient History Conta ct Latex Active Patient History [facility]DB Medic ation Ingre dient tramadol Active Patient History FDB Medic ation Ingre dient codeine Active Patient History Medications No Known Medications Conditions/Problems Problem/Diagnosis Awareness of Diagnosis Code (ICD-10) Onset Date (Start Date) Resolution Date (End Date) Status Source Comments [facility] (CURRENT) USE OF OPIATE ANALGESIC Z79.891 04/26/20 Active Xena wright MD Valentín POLYNEUROPATHY, UNSPECIFIED G62.9 04/26/20 Active Xena wright MD Valentín PERSONAL HISTORY OF OTHER VENOUS THROMBOSIS AND EMBOLISM Z86.718 03/21/20 Active Xena wright MD Valentín HYPOTENSION, UNSPECIFIED I95.9 03/21/20 23 03/24/2023 Resolved Xena wright MD Valentín HYPERTENSIVE CHRONIC KIDNEY DISEASE WITH STAGE 1 THROUGH STAGE 4 CHRONIC KIDNEY DISEASE, OR UNSPECIFIED CHRONIC KIDNEY DISEASE I12.9 03/21/20 Active Xena wright MD Valentín CHRONIC KIDNEY DISEASE, STAGE 3A N18.31 03/21/20 Active Xena wright MD Valentín ELECTRO MECHANICAL TECHNICIAN (CURRENT) USE OF ANTICOAGULANTS Z79.01 03/21/20 Active Xena wright MD Valentín [facility] (CURRENT) USE OF ANTITHROMBOTICS/ANT IPLATELETS Z79.02 03/21/20 Active Xena wright MD Valentín ELECTRO MECHANICAL TECHNICIAN (CURRENT) USE OF BISPHOSPHONATES Z79.83 03/21/20 Active Xena wright MD Valentín IRRITABLE BOWEL SYNDROME, UNSPECIFIED K58.9 03/21/20 Active Xena wright MD Valentín ORTHOSTATIC HYPOTENSION I95.1 03/21/20 Active Xena wright MD Valentín ANEMIA IN OTHER CHRONIC DISEASES CLASSIFIED ELSEWHERE D63.8 03/21/20 Active Xena wright MD Valentín ATHEROSCLEROTIC HEART DISEASE OF [place] CORONARY ARTERY WITHOUT ANGINA PECTORIS I25.10 03/21/20 Active Xena wright MD Valentín OLD MYOCARDIAL INFARCTION I25.2 03/21/20 Active Xena wright MD Valentín PRESENCE OF AORTOCORONARY BYPASS GRAFT Z95.1 03/21/20 Active Xena wright MD Valentín UNSPECIFIED OSTEOARTHRITIS, UNSPECIFIED SITE M19.90 03/21/20 Active Xena wright MD Valentín AGE-RELATED OSTEOPOROSIS WITHOUT CURRENT PATHOLOGICAL FRACTURE M81.0 03/21/20 Audi wright MD Valentín OTHER CARDIOMYOPATHIES I42.8 03/21/20 Active Xena wright MD Valentín PRESENCE OF CORONARY ANGIOPLASTY IMPLANT AND GRAFT Z95.5 03/21/20 Audi wright MD Valentín OTHER SPECIFIED ANXIETY DISORDERS F41.8 03/21/20 Audi wright MD Valentín HYPERLIPIDEMIA, UNSPECIFIED E78.5 03/21/20 Active Xena wright MD Valentín ESSENTIAL (PRIMARY) HYPERTENSION I10 03/21/20 23 03/24/2023 Saba wright MD Valentín GASTRO-ESOPHAGEAL REFLUX DISEASE WITHOUT ESOPHAGITIS K21.9 03/21/20 Active Xena wright MD Valentín CELLULITIS, UNSPECIFIED L03.90 02/18/20 Active Xena wright MD Valentín BACTEREMIA R78.81 02/18/20 Active Xena wright MD Valentín METHICILLIN RESISTANT STAPHYLOCOCCUS AUREUS INFECTION THE CAUSE OF DISEASES CLASSIFIED ELSEWHERE B95.62 02/18/20 Active Xena wright MD Valentín PERSONAL HISTORY OF PULMONARY EMBOLISM Z86.711 02/15/20 Active Xena wright MD Valentín SEPTIC PULMONARY EMBOLISM WITHOUT ACUTE COR PULMONALE I26.90 02/15/20 Active Xena wright MD Valentín PAROXYSMAL ATRIAL FIBRILLATION I48.0 02/12/20 Active Xena wright MD Valentín Z98.890 OTHER SPECIFIED POSTPROCEDURAL STATES Z98.890 02/08/20 23 03/24/2023 Resolved Xena wright MD Valentín DISPLACED FRACTURE OF RIGHT ULNA STYLOID PROCESS, SUBSEQUENT ENCOUNTER FOR CLOSED FRACTURE WITH ROUTINE HEALING S52.611D 02/07/20 23 Active Xena wright MD Valentín OTHER INTRAARTICULAR FRACTURE OF LOWER END OF RIGHT RADIUS, SUBSEQUENT ENCOUNTER FOR CLOSED FRACTURE WITH ROUTINE HEALING S52.571D 02/07/20 23 Active Xena wright MD Valentín PERSONAL HISTORY OF (HEALED) TRAUMATIC FRACTURE Z87.81 02/07/20 Audi wright MD Valentín S52.611 Procedures No Known Procedures
--- OUTSIDE RECORDS SUMMARY | 2024-08-10 12:03 | XMS_ITS | Encounter Summary ---
Author Organization [facility] Address [address] [place] [address] Phone Care Team Providers Care Highway Truck Driver Name Role Phone Cristian Ling MD Primary Care Prov ider Belinda Quigley INCLUSION SPECIALIST Unavailable [phone] Encounter Details Date Type Department Care Team (Late st Contact Info) Description 01/10/2023 Telephone [facility] Cardiology [address] [facility] Advanced [facility] 8th [place] [address] [place] [address] Sami Stafford MD [address] [id number] Social History Tobacco Use Types Packs/Day Years [...] on file Legal Sex Female 7:12 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 difficile suspected 11/24/2023 11/25/202311/24 10:38 AM CDT COVID: Suspected 12/07/2023 12/07/2023 12/07/2023 5:54 PM CDT documented as of this encounter Care Teams Highway Truck Driver Relationship Specialty Start Date End Date Cristian Ling MD [address] [place] [address] PCP - General 10/16/16 Belinda Quigley, SERG [address] [facility] ([facility] Mailstop [phone] [place] [address] [facility] Outpatient Pt Sitter 12/04/23 12/30/23 documented as of this encounter
[2024-08-10 12:50] LABS: Add Urine Microscopic? YES; Appearance Urine Clear (Clear); Bacteria Urine 4+ /hpf; Bilirubin Urine Negative (Negative); Blood Urine Negative (Negative); Color Urine Yellow (Yellow); Glucose Urine UA Negative (Negative); Ketones Urine Negative (Negative); Leukocyte Esterase Ur Trace LEU/UL (Negative); Nitrate Urine Negative (Negative); Non Pathogenic Casts 0-2; Protein Urine Negative (Negative); RBC Urine 0-2 /hpf (0-2); Specific Grav Ur 1.018 (1.001-1.035); Squamous Epithelial Cell Urine None Seen /hpf (Few); pH Urine 6.5 (5.0-9.0)
--- NOTE | 2024-08-10 12:53 | PM.IMHP ---
H&P: HPI History of Present Illness Date/Time: 08/10/24 12:53 Chief Complaint: Abdominal Pain, Constipation Narrative: 79 y/o F presents here with abdominal pain and constipation with PMH of CKD, chronic anemia, paroxysmal AFib, DVT, hypertrophic cardiomyopathy, osteoporosis, HLD, NSTEMI, and chronic idiopathic constipation. The patient presents here via EMS from [facility] for further evaluation of abdominal pain and constipation. She reports her last bowel movement was just prior to EMS arrival, described as liquid. Prior to this BM her last bowel movement was 1 week ago. She reports associated abdominal pain. She describes this as lower/midline, nonradiating, and constant (improved with partial disimpaction in the ED). Patient also notes that she has been experiencing palpitations that began early this morning. She has a known history of atrial fibrillation on metoprolol and Eliquis. Patient took her metoprolol dose this morning. Upon arrival, the patient's heart rate was in the 130s and peaked in the 150s. Patient has been on narcotics at home since May, concerned this may have contributed to her constipation. Initial VS at presentation: 97.5? F, HR 138, RR 22, 123/77, and 100% on RA. ED workup showed: WBC 3.8, hemoglobin 11.4 (previously 11.3 on 06/06/2024), no significant electrolyte derangements, creatinine 0.98 and GFR 55, lactic 2.8. Viral PCR negative. CT of the abdomen/pelvis showed findings consistent with fecal impaction to the level of the sigmoid colon, likely the cause of patient's abdominal pain with no additional acute findings, innumerable nonacute findings (see report). Review of Systems Review of Systems: All systems reviewed & are unremarkable except as noted in HPI and below [facility] Past Medical History Medical History (Updated 08/10/24 @ 13:06 by Chel Parker, LAY OUT DRAFTER) Old myocardial infarction (~2012) Peripheral vascular disease, unspecified Pancreatic cyst Hypertrophic cardiomyopathy Apical variant noted on cardiac MRI 08/22/2022 Coronary artery disease Aortic atherosclerosis (~2006) Acute pancreatitis (03/2022) Choledocholithiasis Status post ERCP with post ERCP pancreatitis at [place] 12/03/2023 Acute hepatitis (11/15/23) Due to medications verses choledocholithiasis Chronic kidney disease Stage III A Chronic anemia Paroxysmal atrial fibrillation History of cardioversion in January 2023 Deep venous thrombosis 1960s Intra-articular fracture of distal end of right radius with volar angulation Close reduction January 2023 Benign positional vertigo Diverticulitis With history of perforation Chronic lower back pain Osteoporosis Hyperlipidemia Cardiorenal syndrome with renal failure Lumbar spinal stenosis Compression fracture of thoracic spine, non-traumatic (2017) T11 Gastro-esophageal reflux disease without esophagitis Occlusion and stenosis of bilateral carotid arteries Chronic idiopathic constipation Surgical History Surgical History (Updated 08/10/24 @ 13:04 by Chel Parker APRN) History of cataract extraction with lens replacement History of coronary artery bypass graft x 2 (2012) [place] to LAD and saphenous vein graft to obtuse marginal History of bowel resection (1992) Due to prior bowel perforation History of cholecystectomy History of total right knee replacement (2017) History of lumbar surgery (1998) Lumbar diskectomy Family History Family History Father Malignant neoplasm of prostate Mother Alzheimer's dementia Sibling Alzheimer's dementia Social History Social History Social History: Surrogate medical decision maker: Storm Lobato, son. Code status: Full code. Smoking status: Never smoker Second hand tobacco smoke exposure: Yes Alcohol intake: never Substance use: former Substance use type: painkillers Do You Feel Safe in your Home?: Yes Lack of Transportation: YES Lack of Food: Never True Current Housing: I Have Housing Concerned About Future Housing: No Difficulty Paying Gas/Electric Bills: No Difficulty Paying for Meds: No Currently Unemployed: No Education: High School Diploma/GED Difficulty w/ Childcare or Family Care: No Living arrangements: assisted living Additional living arrangements comments: . She has 3 sons. Ambulates with a walker. Spiritual care concerns: No Agree to blood products: Yes Meds Home Medications and Allergies Home Medications ?Medication ?Instructions ?Recorded ?Confirmed ?Type alendronate 70 mg tablet 70 mg PO WEEKLY #13 tabs 11/07/22 08/10/24 Rx ezetimibe 10 mg tablet 10 mg PO DAILY #30 tabs 11/14/22 08/10/24 Rx amiodarone 200 mg tablet 200 mg PO DAILY 04/15/23 08/10/24 History atorvastatin 80 mg tablet 80 mg PO HS 10/31/23 02/25/25 History bisacodyl 10 mg rectal suppository 10 mg RECTAL DAILY PRN Constipation 04/15/23 08/10/24 History (Dulcolax (bisacodyl)) calcium 500 mg (as 1 tablet PO DAILY 04/15/23 08/10/24 History carbonate)-vitamin D3 5 mcg (200 unit) tablet (Oyster Shell Calcium-Vitamin D3) pantoprazole 40 mg tablet,delayed 40 mg PO QAM 04/15/23 08/10/24 History release sertraline 50 mg tablet 50 mg PO DAILY 04/15/23 08/10/24 History apixaban 5 mg tablet (Eliquis) 5 mg PO Q12HR #60 tabs 04/26/23 08/10/24 Rx midodrine 2.5 mg tablet 5 mg (2 x 2.5 mg) PO TID #90 tabs 04/26/23 08/10/24 Rx linaclotide 145 mcg capsule 145 mcg PO DAILY PRN Constipation 07/31/23 08/10/24 Rx (Linzess) #90 caps metoprolol succinate 25 mg 25 mg PO DAILY 06/05/24 08/10/24 History tablet,extended release 24 hr ondansetron 4 mg disintegrating 4 mg PO Q8H PRN nausea and vomiting 06/05/24 08/10/24 History tablet acetaminophen 500 mg tablet See Rx Instructions .Route 07/30/24 08/10/24 Rx .COMPLEX #60 tabs hydrocodone 5 mg-acetaminophen 325 1 tablet PO Q6H PRN Pain Rated 08/06/24 08/10/24 Rx mg tablet 4-10 #30 tabs diclofenac sodium 1 % topical gel 2 g topical TID 08/10/24 08/10/24 History gabapentin 100 mg capsule 200 mg PO TID 08/10/24 08/10/24 History Allergies Allergy/AdvReac Type Severity Reaction Status Date / Time codeine Allergy Unknown Anaphylaxis Verified 08/10/24 10:22 Latex, Natural Rubber Allergy Unknown SKIN Verified 08/10/24 10:22 IRRITATION nitroglycerin AdvReac Severe Hypotension Verified 08/10/24 10:22 tramadol AdvReac Mild Nausea and Verified 08/10/24 10:22 Vomiting, HEADACHE, DIZZINESS Vital Signs Vital Signs - 24 hr 08/10/24 09:41 08/10/24 10:20 08/10/24 10:25 Temperature 97.5 F L Pulse Rate 138 H 110 H 114 H Respiratory Rate 22 H 23 H Blood Pressure 123/77 114/64 Pulse Oximetry 100 100 Oxygen Delivery Room Air 08/10/24 11:17 08/10/24 11:21 08/10/24 12:37 Temperature Pulse Rate 141 H 151 H 82 Respiratory Rate 20 16 Blood Pressure 137/80 137/80 150/73 H Pulse Oximetry 99 98 Oxygen Delivery Exam Const: General: comfortable and no acute distress Other: , female, nontoxic appearance, elderly HENMT: Face/Nose/Sinus: Normal nares present Mouth: Yes moist mucous membranes Eyes: General: appearance normal, both eyes and all related structures Sclera: sclerae normal Pupils: Equal, round and reactive pupils present EOM: EOMs intact bilaterally Resp: Effort & Inspection: normal respiratory effort Auscultation: clear to auscultation bilaterally Cardio: Rate: regular rate Rhythm: regular rhythm Other: S1-S2 present without murmur, rub, ectopy GI: Other: Abdomen soft, nondistended. Normoactive bowel sounds in all quadrants. Tenderness in the lower/midline abdominal region. Skin: General skin exam: normal color and no rashes or lesions noted Wounds: no wounds Neuro: Speech: normal speech Motor exam (neuro): 5/5 motor strength present throughout Sensory Exam: normal sensation Other: A&O x4 Extrem: General: normal to inspection Psych: Mental Status: mental status grossly normal Affect: normal affect Other: Good insight and judgment, pleasant H&P: Results Labs Labs: Short CBC 08/10/24 Range/Units 10:12 WBC 3.8 L (4.5-10.0) K/mm3 Hgb 11.4 L (12.0-15.0) g/dL Hct 35.0 L (37.0-47.0) % Plt Count 159 (150-375) k/mm3 BMP 08/10/24 10:12 Sodium 139 Potassium 4.1 Chloride 104 Carbon Dioxide 19 L BUN 16 D Creatinine 0.98 Glucose 135 H Calcium 10.2 Liver Function 08/10/24 Range/Units 10:12 Total Bilirubin 1.1 (0.2-1.3) mg/dL AST 23 (14-36) U/L ALT 16 (6-35) U/L Alkaline Phosphatase 56 (38-126) U/L Albumin 4.3 (3.5-5.1) g/dL Assessment and Plan Assessment and plan (1) Atrial fibrillation with rapid ventricular response: Code(s): I48.91 - Unspecified atrial fibrillation Status: Acute Assessment and Plan: - EKG, initial: AFib RVR, rate 139, intraventricular conduction delay, LVH with ST-T change, baseline artifact. When compared to EKG done in November of 2023, sinus bradycardia no longer present. - home medications: amiodarone 200 mg daily continue. exchange metoprolol succinate 25 daily -> metoprolol tartrate 25 mg PO BID - currently has received: diltiazem 10 mg IV x2 and diltiazem gtt - telemetry monitoring (2) Fecal impaction: Code(s): K56.41 - Fecal impaction Status: Acute Assessment and Plan: - CT abd/pelvis: Findings consistent with fecal impaction to the level of the sigmoid colon, likely the cause of patient's abdominal pain. No additional acute findings. Innumerable nonacute findings, as detailed above. - digital disimpaction in the ED partially successful - start bowel regimen: MiraLax and stool softener daily - enema x1 only partial success, repeat this evening if patient does not pass a BM this afternoon - IV fluids: LR at 150 mL/hour x1L, received 1L bolus in ED (3) Chronic kidney disease, stage 3a: Code(s): N18.31 - Chronic kidney disease, stage 3a Status: Chronic Assessment and Plan: - creatinine 0.98 and GFR 55, previously 1.1 and GFR 48 on 06/06/2024 - trend renal function - trend electrolytes, correct as needed Plan Diet: Regular GI Prophylaxis: Not currently indicated DVT Prophylaxis: Eliquis Lines: Peripheral Code Status: Full code Quality VTE Prophylaxis VTE prophylaxis: pharmacologic ordered Hospitalist MIPS Advance Care Plan I have confirmed that the patient's Advanced Care Plan is present, code status is documented, or surrogate decision maker is listed in patient medical record.: Yes Medication Reconciliation I have utilized all available resources to obtain, update and review the patients current medications (includes all prescriptions, OTC, herbals, cannabis, and nutritional supplements).: Yes
[2024-08-10 12:54] LABS: Influenza A QL RT-PCR Negative (Negative); Influenza B QL RT-PCR Negative (Negative); RSV RNA, RT-PCR Negative (Negative); SARS-CoV-2 RNA PCR Negative (Negative)
[2024-08-10 13:18] LABS: Reflex Lactic Acid Yes or No Add Lactic
--- NOTE | 2024-08-10 13:35 | ECG_ITS ---
Test Date: 2024-08-10 13:50:31 Measurements Intervals [place] Rate: 87 P: 42 FL: 185 QRS: -15 QRSD: 110 T: 138 QT: 381 QTc: 461 Interpretive Statements SINUS RHYTHM LEFT VENTRICULAR HYPERTROPHY AND ST-T CHANGE ST-T WAVE ABNORMALITY IN ANTEROLATERAL LEADS- CONSIDER ISCHEMIA BASELINE ARTIFACT- I, II, III, AVR, AVL, AVF, V1-V2 ABNORMAL ECG Compared to ECG 08/10/2024 09:49:47 Atrial fibrillation no longer present POSSIBLE ISCHEMIA NOW PRESENT Electronically Signed On 08-11-2024 10:15:14 CLEARING HAND by Dannie Younger D.O.
[2024-08-10 13:57] LABS: Lactic Acid 1.1 mmol/L (0.7-2.0)
[2024-08-10] MEDS: LACTATED RINGERS 1,000 ML 150 ML IV CONT (14:26)
--- NOTE | 2024-08-10 18:43 | ADMGEN ---
This patient, Tiera Lobato, was admitted to IMU Room 206-01 at 1602. Patient/family oriented to hospital policies and general routines including ID bracelet, bed and alarms, visiting hours, pain management, procedures, bathroom and other care routines, personal items, smoking policy, room service/diet, and visiting hours. Information on how to activate the Rapid Response Team has been discussed. Patient/Family are encouraged to report perceived risks to care and to ask questions if they do not understand what they are told or what they should do.
[2024-08-10] MEDS: APIXABAN 5 MG TABLET PO (19:59)
[2024-08-10] MEDS: ATORVASTATIN 40 MG TABLET 80 MG PO (19:59)
[2024-08-10] MEDS: GABAPENTIN 100 MG CAPSULE 200 MG PO (19:59)
[2024-08-10] MEDS: DOCUSATE SODIUM 100 MG CAPSULE PO (20:00)
[2024-08-10] MEDS: METOPROLOL TARTRATE 25 MG TABLET PO (21:29)
[2024-08-11] VITALS (20 sets, daily range): BP systolic 102–179; BP diastolic 56–84; PULSE 53–89; RESP 16–18; TEMP 36.6–37.4; O2SAT 96–100
[2024-08-11 05:44] LABS: Basophils Percent Auto 0.6 % (0.2-1.2); Eosinophils Absolute Auto 0.1 K/mm3 (0-0.3); Eosinophils Percent Auto 1.4 % (0-4.4); Hematocrit 30.1 % (37.0-47.0); Hemoglobin 9.8 g/dL (12.0-15.0); Immature Granulocyte Absolute 0.02 K/mm3 (0.00-0.031); Immature Granulocyte Percent A 0.4 % (0-0.5); Lymphocytes Absolute Auto 1.21 K/mm3 (0.9-3.2); Lymphocytes Percent Auto 23.4 % (18.3-44.2); Mean Corpuscular HGB Conc 32.6 g/dl (32-36); Mean Corpuscular Hemoglobin 32.7 pg (26-34); Mean Corpuscular Volume 100.3 fl (80-100); Mean Platelet Volume 11.2 fl (7.4-10.4); Monocytes Absolute Auto 0.8 K/mm3 (0.1-0.6); Monocytes Percent Auto 14.7 % (2.6-8.5); Neutrophils Absolute Auto 3.1 K/mm3 (1.3-6.7); Neutrophils Percent Auto 59.5 % (45.5-73.1); Platelet Count Result 161 k/mm3 (150-375); Red Cell Distribution Width 13.2 % (11.5-14.5); White Blood Count 5.2 K/mm3 (4.5-10.0)
[2024-08-11] MEDS: ALENDRONATE SODIUM 70 MG TABLET PO (05:51)
[2024-08-11 06:00] LABS: Anion Gap 7 mmol/L (4-12); Blood Urea Nitrogen 11 mg/dL (7-17); Calcium 8.9 mg/dL (8.4-10.2); Carbon Dioxide 25 mmol/L (22-30); Chloride 104 mmol/L (98-107); Estimated CRCL calculation 36 ml/min; Estimated Glomerular Filt Rate 58; Glucose 87 mg/dL (65-110); Potassium 4.1 mmol/L (3.4-5.0); Sodium 136 mmol/L (137-145)
[2024-08-11] MEDS: polyethylene glycoL 3350 17 GM POWD.PACK PO (09:00)
[2024-08-11] MEDS: AMIODARONE HCL 200 MG TABLET PO (09:01)
[2024-08-11] MEDS: MIDODRINE HCL 2.5 MG TABLET 5 MG PO ×3 (09:02→18:34)
[2024-08-11] MEDS: DOCUSATE SODIUM 100 MG CAPSULE PO ×2 (09:03→20:43)
[2024-08-11] MEDS: METOPROLOL TARTRATE 25 MG TABLET PO ×2 (09:03→20:45)
[2024-08-11] MEDS: APIXABAN 5 MG TABLET PO ×2 (09:03→20:44)
[2024-08-11] MEDS: PANTOPRAZOLE 40 MG TABLET PO (09:04)
--- NOTE | 2024-08-11 16:54 | P.PNIM_ITS ---
Progress Note: A&P Assessment and Plan (1) Atrial fibrillation with rapid ventricular response: Code(s): I48.91 - Unspecified atrial fibrillation Status: Acute Assessment and Plan: Patient with tachycardia and EKG showing AFib RVR, rate 139, intraventricular conduction delay, LVH with ST-T change, baseline artifact. Probably related to valsalva with her constipation Diltiazem drip started. She was resumed on her amiodarone and metoprolol. She converted to sinus rhythm. Diltiazem stopped. Eliquis continued as well. Appreciate Cardiology input. Check TSH. Follow electrolytes. (2) Fecal impaction: Code(s): K56.41 - Fecal impaction Status: Acute Assessment and Plan: Patient presents with abdominal pain. CT abd/pelvis show fecal impaction to the level of the sigmoid colon, likely the cause of patient's abdominal pain. No additional acute findings. Digital disimpaction in the ED partially successful. MiraLax and stool softener daily Enema repeated. +BMs now. Follow for resolution. (3) Chronic kidney disease, stage 3a: Code(s): N18.31 - Chronic kidney disease, stage 3a Status: Chronic Assessment and Plan: Cr 0.98 and GFR 55. Previous Cr 1.1 and GFR 48 on 06/06/2024 - trend renal function - trend electrolytes, correct as needed Plan Anemia - hgb dropped to 9.8 but probably related to the IV fluids. Check iron studies, B12. DVT Prophylaxis: Eliquis Code Status: Full code Subjective Date/time seen: 08/11/24 16:54 Interval history: 89yo female with CKD, chronic anemia, paroxysmal AFib, DVT, hypertrophic cardiomyopathy, osteoporosis, HLD, NSTEMI, and chronic idiopathic constipation here for abdominal pain. Assuming care. Chart reviewed. Patient converted to normal sinus rhythm. She has had 2 bowel movements since admission. Abdominal pain is better. No chest pain or shortness of breath. No nausea or vomiting. She does not recall the last time she had a colonoscopy. She does admit to straining on the toilet prior to admission. Exam Narrative: AF 99.2 133/64 61 16 96% ra Gen - NARD Chest - dry bibasilar crackles, nml RR CV - RRR S1/S2. Tele showing sinus rhythm now Abd - Soft, NT/ND, Positive BS Ext - No pedal edema Psych - Nml mood and affect Skin - Warm and dry Objective Data Vital Signs Vital Signs: Vital Signs - 24 hr 08/10/24 17:56 08/10/24 18:00 08/10/24 18:00 Temperature 99.0 F Pulse Rate 69 69 67 Respiratory Rate 18 Blood Pressure 149/66 H 149/66 H Pulse Oximetry 99 Oxygen Delivery 08/10/24 19:48 08/10/24 20:00 08/10/24 20:00 Temperature 97 F L Pulse Rate 75 75 Respiratory Rate 16 Blood Pressure 153/69 H Pulse Oximetry 98 Oxygen Delivery Room Air 08/10/24 20:00 08/10/24 21:29 08/10/24 21:30 Temperature Pulse Rate 83 85 87 Respiratory Rate Blood Pressure Pulse Oximetry Oxygen Delivery 08/10/24 21:48 08/10/24 22:00 08/10/24 23:41 Temperature 98 F Pulse Rate 70 62 60 Respiratory Rate 16 Blood Pressure 153/60 H 141/71 H Pulse Oximetry 98 Oxygen Delivery 08/11/24 00:00 08/11/24 00:00 08/11/24 02:00 Temperature Pulse Rate 55 L 53 L Respiratory Rate Blood Pressure Pulse Oximetry Oxygen Delivery Room Air 08/11/24 04:00 08/11/24 04:00 08/11/24 04:57 Temperature 97.8 F Pulse Rate 55 L 77 Respiratory Rate 16 Blood Pressure 179/84 H Pulse Oximetry 100 Oxygen Delivery Room Air 08/11/24 06:00 08/11/24 07:56 08/11/24 09:03 Temperature 99.3 F Pulse Rate 60 69 89 Respiratory Rate 18 Blood Pressure 140/63 Pulse Oximetry 96 Oxygen Delivery 08/11/24 11:36 08/11/24 15:43 Temperature 98.6 F 99.2 F Pulse Rate 64 61 Respiratory Rate 18 16 Blood Pressure 142/57 H 133/64 Pulse Oximetry 99 96 Oxygen Delivery Intake/Output Intake/Output: Intake & Output 08/08/24 08/09/24 08/10/24 08/11/24 23:59 23:59 23:59 23:59 Intake Total 2151.1 510 Output Total 1050 Balance 1101.1 510 Meds/Results Medications: Active Medications Generic Name Dose Route Start Last Admin Trade Name Freq PRN Reason Stop Dose Admin Acetaminophen 1,000 mg 08/10/24 18:55 Acetaminophen 500 Mg Tablet PO Q6H PRN PAIN RATED 1-3 Hydrocodone Bitart/Acetaminophen 1 tab 08/10/24 18:52 08/10/24 20:00 Hydrocodone/Acetaminophen (*Crx) 5-325 Mg Tablet PO 1 tab Q6H PRN Administration Pain Rated 4-10 Alendronate Sodium 70 mg 08/11/24 06:30 08/11/24 05:51 Alendronate Sodium 70 Mg Tablet PO 70 mg We@0630 AGUS Administration Amiodarone HCl 200 mg 08/11/24 09:00 08/11/24 09:01 Amiodarone Hcl 200 Mg Tablet PO 200 mg DAILY AGUS Administration Apixaban 5 mg 08/10/24 21:00 08/11/24 09:03 Apixaban 5 Mg Tablet PO 5 mg Q12HR AGUS Administration Atorvastatin Calcium 80 mg 08/10/24 21:00 08/10/24 19:59 Atorvastatin 40 Mg Tablet PO 80 mg HS AGUS Administration Bisacodyl 10 mg 08/10/24 18:52 Bisacodyl 10 Mg Suppository RECTAL DAILY PRN Constipation Calcium Carbonate 500 mg 08/11/24 09:00 08/11/24 09:17 Calcium/Vitamin D 500 Mg/5 Mcg (200 I.U.) Tablet PO Not Given DAILY [facility] Diclofenac Sodium 0 applic 08/11/24 09:00 Diclofenac Sodium 1% 100 Gm Gel (*Bkc) TOPICAL TID [facility] Docusate Sodium 100 mg 08/10/24 21:00 08/11/24 09:03 Docusate Sodium 100 Mg Capsule PO 100 mg Q12HR AGUS Administration Ezetimibe 10 mg 08/11/24 09:00 08/11/24 09:17 Ezetimibe 10 Mg Tablet PO Not Given DAILY [facility] Gabapentin 200 mg 08/10/24 19:05 08/11/24 14:35 Gabapentin 100 Mg Capsule PO Not Given TID [facility] Linaclotide 145 mcg 08/10/24 18:52 Linaclotide 145 Mcg Capsule PO DAILY PRN Constipation Metoprolol Tartrate 25 mg 08/10/24 21:00 08/11/24 09:03 Metoprolol Tartrate 25 Mg Tablet PO 25 mg Q12HR AGUS Administration Midodrine 5 mg 08/11/24 09:00 08/11/24 14:35 Midodrine Hcl 2.5 Mg Tablet PO 5 mg TID AGUS Administration Ondansetron HCl 4 mg 08/10/24 12:29 Ondansetron Inj 4 Mg/2 Ml Vial IV PUSH Q4H PRN Nausea Pantoprazole Sodium 40 mg 08/11/24 09:00 08/11/24 09:04 Pantoprazole 40 Mg Tablet PO 40 mg QAM AGUS Administration Polyethylene Glycol 17 gm 08/11/24 09:00 08/11/24 09:00 Polyethylene Glycol 3350 17 Gm Powd.Pack PO 17 gm QAM AGUS Administration Sertraline HCl 50 mg 08/11/24 09:00 08/11/24 09:17 Sertraline Hcl 50 Mg Tablet PO Not Given DAILY [facility]US Radiology Results: ITS Impressions Abdomen/Pelvis CT 08/10/24 10:58 IMPRESSION: Findings consistent with fecal impaction to the level of the sigmoid colon, likely the cause of patient's abdominal pain. No additional acute findings. Innumerable nonacute findings, as detailed above. Labs Labs: Laboratory Results - last 24 hr 08/11/24 04:48 WBC 5.2 RBC 3.00 L Hgb 9.8 L Hct 30.1 L MCV 100.3 H MCH 32.7 MCHC 32.6 RDW 13.2 Plt Count 161 MPV 11.2 H Immature Gran % (Auto) 0.4 Neut % (Auto) 59.5 Lymph % (Auto) 23.4 [place] % (Auto) 14.7 H Eos % (Auto) 1.4 Baso % (Auto) 0.6 Lymph # (Auto) 1.21 [place] # (Auto) 0.8 H Eos # (Auto) 0.1 Baso # (Auto) 0.0 Abs Immat Gran (auto) 0.02 Absolute Neuts (auto) 3.1 Absolute Nucleated RBC 0.000 Nucleated RBC % 0.0 Sodium 136 L Potassium 4.1 Chloride 104 Carbon Dioxide 25 Anion Gap 7 BUN 11 D Creatinine 0.93 Estim Creat Clear Calc 36 Estimated GFR 58 L Glucose 87 Calcium 8.9
--- NOTE | 2024-08-11 17:05 | PM.CNCAR ---
Assessment and Plan Assessment and plan (1) Atrial fibrillation with rapid ventricular response: Code(s): I48.91 - Unspecified atrial fibrillation Status: Acute Assessment and Plan: -Patient has paroxysmal atrial fibrillation. She had AFib with RVR at the time of presentation with rates in the 130s to 150s range. She was given IV Cardizem after which she converted back to sinus rhythm. Most likely etiology of AFib RVR could be stress of constipation -Continue amiodarone at 200 mg daily, metoprolol 25 mg p.o. b.i.d. (both home meds). Rates are currently in the 70s. His palpitations have resolved -Continue apixaban for anticoagulation -Check TSH and free T3-T4 -Check and replace electrolytes to keep potassium greater than 4 and magnesium greater than 2 -Monitor on telemetry (2) Orthostatic hypotension: Code(s): I95.1 - Orthostatic hypotension Status: Acute Assessment and Plan: -Continue midodrine (3) Chronic kidney disease, stage 3a: Code(s): N18.31 - Chronic kidney disease, stage 3a Status: Chronic Assessment and Plan: -Management per primary (4) Hypertensive chronic kidney disease with stage 1 through stage 4 chronic kidney disease, or unspecified chronic kidney disease: Code(s): I12.9 - Hypertensive chronic kidney disease with stage 1 through stage 4 chronic kidney disease, or unspecified chronic kidney disease Status: Acute Assessment and Plan: -Blood pressure controlled -Continue metoprolol (5) Chronic anemia: Code(s): D64.9 - Anemia, unspecified Status: Acute Assessment and Plan: -Management per primary team History of Present Illness History of Present Illness Consult date/time: 08/11/24 17:05 Reason For Visit: Afib RVR/Fecal Impaction Narrative: 79-year-old female with history of paroxysmal atrial fibrillation, coronary artery disease status post PCI, peripheral vascular disease, history of DVT, apical variant hypertrophic cardiomyopathy noted on cardiac MRI 08/22/2022, hyperlipidemia, GERD, chronic idiopathic constipation, benign positional vertigo, pancreatic cyst, CKD stage IIIA, chronic anemia presented via EMS from [facility] with chief complaints of abdominal pain and constipation. She also noticed palpitations. She had a bowel movement while she was being brought in by the EMS but prior to that her last bowel movement was 1 week ago. She has been having abdominal pain since she has been constipated. She has a history of paroxysmal atrial fibrillation for which she is on metoprolol and amiodarone. She is on chronic anticoagulation with Eliquis. She has off and on palpitations. Prior to admission she had increased palpitations and she knew she was in atrial fibrillation. She does not monitor her rhythm at home. She was given IV Cardizem which converted her back into sinus rhythm. She currently remains in sinus rhythm. Cardiology was consulted for further recommendations. Workup: Hemoglobin 9.8 Echo in 2021: LVEF greater than 70%, thickening of the LV apex and apical wall segments suggestive of apical variant of hypertrophic cardiomyopathy, mild aortic regurgitation, mild mitral regurgitation, mild tricuspid regurgitation CT abdomen: Showed fecal impaction to the level of the sigmoid colon likely cause of patient's abdominal pain Review of Systems Review of Systems: A complete review of systems was performed and negative other than those mentioned HPI [facility] Past Medical History Medical History (Updated 08/10/24 @ 13:06 by Chel Parker APRN) Old myocardial infarction (~2012) Peripheral vascular disease, unspecified Pancreatic cyst Hypertrophic cardiomyopathy Apical variant noted on cardiac MRI 08/22/2022 Coronary artery disease Aortic atherosclerosis (~2006) Acute pancreatitis (03/2022) Choledocholithiasis Status post ERCP with post ERCP pancreatitis at [place] 12/03/2023 Acute hepatitis (11/15/23) Due to medications verses choledocholithiasis Chronic kidney disease Stage III A Chronic anemia Paroxysmal atrial fibrillation History of cardioversion in January 2023 Deep venous thrombosis 1960s Intra-articular fracture of distal end of right radius with volar angulation Close reduction January 2023 Benign positional vertigo Diverticulitis With history of perforation Chronic lower back pain Osteoporosis Hyperlipidemia Cardiorenal syndrome with renal failure Lumbar spinal stenosis Compression fracture of thoracic spine, non-traumatic (2017) T11 Gastro-esophageal reflux disease without esophagitis Occlusion and stenosis of bilateral carotid arteries Chronic idiopathic constipation Surgical History Surgical History (Updated 08/10/24 @ 13:04 by Chel Parker APRN) History of cataract extraction with lens replacement History of coronary artery bypass graft x 2 (2012) [place] to LAD and saphenous vein graft to obtuse marginal History of bowel resection (1992) Due to prior bowel perforation History of cholecystectomy History of total right knee replacement (2017) History of lumbar surgery (1998) Lumbar diskectomy Family History Family History Father Malignant neoplasm of prostate Mother Alzheimer's dementia Sibling Alzheimer's dementia Social History Social History Social History: Surrogate medical decision maker: Storm Lobato, walter. Code status: Full code. Smoking status: Never smoker Second hand tobacco smoke exposure: Yes Alcohol intake: never Substance use: former Substance use type: painkillers Do You Feel Safe in your Home?: Yes Lack of Transportation: YES Lack of Food: Never True Current Housing: I Have Housing Concerned About Future Housing: No Difficulty Paying Gas/Electric Bills: No Difficulty Paying for Meds: No Currently Unemployed: No Education: High School Diploma/GED Difficulty w/ Childcare or Family Care: No Living arrangements: assisted living Additional living arrangements comments: . She has 3 sons. Ambulates with a walker. Spiritual care concerns: No Agree to blood products: Yes Meds Home Medications and Allergies Home Medications ?Medication ?Instructions ?Recorded ?Confirmed ?Type alendronate 70 mg tablet 70 mg PO WEEKLY #13 tabs 11/07/22 08/10/24 Rx ezetimibe 10 mg tablet 10 mg PO DAILY #30 tabs 11/14/22 08/10/24 Rx amiodarone 200 mg tablet 200 mg PO DAILY 04/15/23 08/10/24 History atorvastatin 80 mg tablet 80 mg PO HS 04/15/23 08/10/24 History bisacodyl 10 mg rectal suppository 10 mg RECTAL DAILY PRN Constipation 04/15/23 08/10/24 History (Dulcolax (bisacodyl)) calcium 500 mg (as 1 tablet PO DAILY 04/15/23 08/10/24 History carbonate)-vitamin D3 5 mcg (200 unit) tablet (Oyster Shell Calcium-Vitamin D3) pantoprazole 40 mg tablet,delayed 40 mg PO QAM 04/15/23 08/10/24 History release sertraline 50 mg tablet 50 mg PO DAILY 04/15/23 08/10/24 History apixaban 5 mg tablet (Eliquis) 5 mg PO Q12HR #60 tabs 04/26/23 08/10/24 Rx midodrine 2.5 mg tablet 5 mg (2 x 2.5 mg) PO TID #90 tabs 04/26/23 08/10/24 Rx linaclotide 145 mcg capsule 145 mcg PO DAILY PRN Constipation 07/31/23 08/10/24 Rx (Linzess) #90 caps metoprolol succinate 25 mg 25 mg PO DAILY 06/05/24 08/10/24 History tablet,extended release 24 hr ondansetron 4 mg disintegrating 4 mg PO Q8H PRN nausea and vomiting 06/05/24 08/10/24 History tablet acetaminophen 500 mg tablet See Rx Instructions .Route 07/30/24 08/10/24 Rx .COMPLEX #60 tabs hydrocodone 5 mg-acetaminophen 325 1 tablet PO Q6H PRN Pain Rated 08/06/24 08/10/24 Rx mg tablet 4-10 #30 tabs diclofenac sodium 1 % topical gel 2 g topical TID 08/10/24 08/10/24 History gabapentin 100 mg capsule 200 mg PO TID 08/10/24 08/10/24 History Allergies Allergy/AdvReac Type Severity Reaction Status Date / Time codeine Allergy Unknown Anaphylaxis Verified 08/10/24 10:22 Latex, Natural Rubber Allergy Unknown SKIN Verified 08/10/24 10:22 IRRITATION nitroglycerin AdvReac Severe Hypotension Verified 08/10/24 10:22 tramadol AdvReac Mild Nausea and Verified 08/10/24 10:22 Vomiting, HEADACHE, DIZZINESS Vital Signs Vital Signs - 24 hr 08/10/24 17:56 08/10/24 18:00 08/10/24 18:00 Temperature 37.2 C Pulse Rate 69 69 67 Respiratory Rate 18 Blood Pressure 149/66 H 149/66 H Pulse Oximetry 99 Oxygen Delivery 08/10/24 19:48 08/10/24 20:00 08/10/24 20:00 Temperature 36.1 C L Pulse Rate 75 75 Respiratory Rate 16 Blood Pressure 153/69 H Pulse Oximetry 98 Oxygen Delivery Room Air 08/10/24 20:00 08/10/24 21:29 08/10/24 21:30 Temperature Pulse Rate 83 85 87 Respiratory Rate Blood Pressure Pulse Oximetry Oxygen Delivery 08/10/24 21:48 08/10/24 22:00 08/10/24 23:41 Temperature 36.6 C Pulse Rate 70 62 60 Respiratory Rate 16 Blood Pressure 153/60 H 141/71 H Pulse Oximetry 98 Oxygen Delivery 08/11/24 00:00 08/11/24 00:00 08/11/24 02:00 Temperature Pulse Rate 55 L 53 L Respiratory Rate Blood Pressure Pulse Oximetry Oxygen Delivery Room Air 08/11/24 04:00 08/11/24 04:00 08/11/24 04:57 Temperature 36.6 C Pulse Rate 55 L 77 Respiratory Rate 16 Blood Pressure 179/84 H Pulse Oximetry 100 Oxygen Delivery Room Air 08/11/24 06:00 08/11/24 07:56 08/11/24 09:03 Temperature 37.4 C Pulse Rate 60 69 89 Respiratory Rate 18 Blood Pressure 140/63 Pulse Oximetry 96 Oxygen Delivery 08/11/24 11:36 08/11/24 15:43 Temperature 37.0 C 37.3 C Pulse Rate 64 61 Respiratory Rate 18 16 Blood Pressure 142/57 H 133/64 Pulse Oximetry 99 96 Oxygen Delivery Exam Narrative: General: Alert oriented x3, no acute distress Neck: Supple, no JVD Chest: Bilaterally clear to auscultation, no rales or rhonchi Cardiac: S1, S2 +, regular rate, regular rhythm, no murmurs or rubs Extremities: No pedal edema, no skin rash Neurologic: Alert and oriented x3, no focal neurological deficits Results Labs and Meds 08/11/24 04:48 08/11/24 04:48 Lab results: CBC 08/11/24 Range/Units 04:48 WBC 5.2 (4.5-10.0) K/mm3 RBC 3.00 L (4.2-5.4) M/mm3 Hgb 9.8 L (12.0-15.0) g/dL Hct 30.1 L (37.0-47.0) % Plt Count 161 (150-375) k/mm3 Lymph # (Auto) 1.21 (0.9-3.2) K/mm3 [place] # (Auto) 0.8 H (0.1-0.6) K/mm3 Eos # (Auto) 0.1 (0-0.3) K/mm3 Baso # (Auto) 0.0 (0.0-0.1) K/mm3 Comprehensive Metabolic Panel 08/11/24 Range/Units 04:48 Sodium 136 L (137-145) mmol/L Potassium 4.1 (3.4-5.0) mmol/L Chloride 104 (98-107) mmol/L Carbon Dioxide 25 (22-30) mmol/L BUN 11 D (7-17) mg/dL Creatinine 0.93 (0.7-1.0) mg/dL Glucose 87 (65-110) mg/dL Calcium 8.9 (8.4-10.2) mg/dL Intake and Output 08/11/24 08/11/24 08/11/24 07:59 15:59 23:59 Intake Total 150 360 Balance 150 360 Intake: Oral 150 360 Patient Weight 08/11/24 23:59 Weight 60.5 kg
[2024-08-11] MEDS: HYDROcodone/acetaminophen (*CRX) 5-325 MG TABLET 1 TAB PO (20:43)
[2024-08-11] MEDS: ATORVASTATIN 40 MG TABLET 80 MG PO (20:44)
[2024-08-12] VITALS (16 sets, daily range): BP systolic 116–129; BP diastolic 52–64; PULSE 48–70; RESP 16–18; TEMP 36.7–36.9; O2SAT 95–98
[2024-08-12 05:47] LABS: Hematocrit 29.1 % (37.0-47.0); Hemoglobin 9.5 g/dL (12.0-15.0); Mean Corpuscular HGB Conc 32.6 g/dl (32-36); Mean Corpuscular Hemoglobin 33.1 pg (26-34); Mean Corpuscular Volume 101.4 fl (80-100); Mean Platelet Volume 11.9 fl (7.4-10.4); Platelet Count Result 150 k/mm3 (150-375); Red Blood Count 2.87 M/mm3 (4.2-5.4); White Blood Count 4.9 K/mm3 (4.5-10.0)
[2024-08-12 06:28] LABS: Anion Gap 7 mmol/L (4-12); Blood Urea Nitrogen 11 mg/dL (7-17); Calcium 8.7 mg/dL (8.4-10.2); Carbon Dioxide 25 mmol/L (22-30); Chloride 103 mmol/L (98-107); Estimated CRCL calculation 35 ml/min; Estimated Glomerular Filt Rate 56; Glucose 81 mg/dL (65-110); Magnesium 1.7 mg/dL (1.6-2.3); Potassium 3.8 mmol/L (3.4-5.0); Sodium 135 mmol/L (137-145)
[2024-08-12 06:54] LABS: Iron 31 ug/dL (37-170); Percent Iron Saturation 13 % (20-50)
[2024-08-12 07:25] LABS: Folic Acid 9.1 ng/mL (2.76->20); Vitamin B12 < 159.0 pg/mL (239-931)
[2024-08-12] MEDS: DICLOFENAC SODIUM 1% 100 GM GEL (*BKC) TOPICAL ×3 (09:00→17:15)
[2024-08-12] MEDS: METOPROLOL SUCCINATE EXT REL 25 MG TABCR PO (10:20)
[2024-08-12] MEDS: APIXABAN 5 MG TABLET PO ×2 (10:20→20:02)
[2024-08-12] MEDS: CYANOCOBALAMIN 1,000 MCG TABLET 1000 MCG PO (10:20)
[2024-08-12] MEDS: PANTOPRAZOLE 40 MG TABLET PO (10:21)
[2024-08-12] MEDS: AMIODARONE HCL 200 MG TABLET PO (10:21)
[2024-08-12] MEDS: DOCUSATE SODIUM 100 MG CAPSULE PO ×2 (10:21→20:03)
[2024-08-12] MEDS: CYANOCOBALAMIN INJ 1,000 MCG/ML VIAL 1000 MCG IM (10:23)
[2024-08-12] MEDS: MIDODRINE HCL 2.5 MG TABLET 5 MG PO ×3 (10:23→17:15)
--- NOTE | 2024-08-12 11:52 | PM.IMPN ---
Progress Note: A&P Assessment and Plan (1) Atrial fibrillation with rapid ventricular response: Code(s): I48.91 - Unspecified atrial fibrillation Status: Acute Assessment and Plan: Patient with tachycardia and EKG showing AFib RVR, rate 139, intraventricular conduction delay, LVH with ST-T change, baseline artifact. Probably related to valsalva with her constipation Diltiazem drip started. She was resumed on her amiodarone and metoprolol. She converted to sinus rhythm. Diltiazem stopped. TSH normal. Eliquis continued as well. Appreciate Cardiology input. Follow electrolytes. (2) Fecal impaction: Code(s): K56.41 - Fecal impaction Status: Acute Assessment and Plan: Patient presents with abdominal pain. CT abd/pelvis show fecal impaction to the level of the sigmoid colon, likely the cause of patient's abdominal pain. No additional acute findings. Digital disimpaction in the ED partially successful. MiraLax and stool softener daily Enema repeated. +BMs now. Follow for resolution. Check KUB (3) Chronic kidney disease, stage 3a: Code(s): N18.31 - Chronic kidney disease, stage 3a Status: Chronic Assessment and Plan: Cr 0.98 and GFR 55. Previous Cr 1.1 and GFR 48 on 06/06/2024 - trend renal function - trend electrolytes, correct as needed (4) B12 deficiency anemia: Code(s): D51.9 - Vitamin B12 deficiency anemia, unspecified Status: Acute Assessment and Plan: Hgb dropped to 9.5. Anemia with macrocytosis. B12 level <159. Iron 31, TIBC 241 with ISat 13%. Ferritin 137. B12 IM daily x3. Start oral B12. Plan Debility - PT/OT ordered. Waiting for their evaluation. DVT Prophylaxis: Eliquis Code Status: Full code Subjective Date/time seen: 08/12/24 11:52 Interval history: 89yo female with CKD, chronic anemia, paroxysmal AFib, DVT, hypertrophic cardiomyopathy, osteoporosis, HLD, NSTEMI, and chronic idiopathic constipation here for abdominal pain. No BM today. No CP or SOB. no n/v. Exam Narrative: AF 98.1 126/57 56 18 97% ra Gen - NARD Chest - CTA bilaterally, nml RR CV - RRR S1/S2. Tele showing PVCs Abd - Soft, NT/ND, Positive BS Ext - No pedal edema Psych - Nml mood and affect Skin - Warm and dry Objective Data Vital Signs Vital Signs: Vital Signs - 24 hr 08/11/24 12:00 08/11/24 12:00 08/11/24 14:00 Temperature Pulse Rate 61 64 Respiratory Rate Blood Pressure Pulse Oximetry Oxygen Delivery Room Air 08/11/24 15:43 08/11/24 16:00 08/11/24 16:00 Temperature 99.2 F Pulse Rate 61 60 Respiratory Rate 16 Blood Pressure 133/64 Pulse Oximetry 96 Oxygen Delivery Room Air 08/11/24 18:00 08/11/24 19:52 08/11/24 20:00 Temperature 98.7 F Pulse Rate 60 62 Respiratory Rate 16 Blood Pressure 122/56 L Pulse Oximetry 98 Oxygen Delivery Room Air 08/11/24 20:00 08/11/24 20:45 08/11/24 22:00 Temperature Pulse Rate 59 L 64 58 L Respiratory Rate Blood Pressure Pulse Oximetry Oxygen Delivery 08/11/24 23:39 08/12/24 00:00 08/12/24 00:00 Temperature 98.3 F Pulse Rate 58 L 54 L Respiratory Rate 16 Blood Pressure 102/69 Pulse Oximetry 100 Oxygen Delivery Room Air 08/12/24 02:00 08/12/24 03:37 08/12/24 03:40 Temperature 98.2 F Pulse Rate 49 L 58 L Respiratory Rate 16 Blood Pressure 116/52 L Pulse Oximetry 98 Oxygen Delivery Room Air 08/12/24 04:00 08/12/24 06:00 08/12/24 07:27 Temperature 98.1 F Pulse Rate 48 L 59 L 62 Respiratory Rate 18 Blood Pressure 126/57 L Pulse Oximetry 97 Oxygen Delivery 08/12/24 10:21 Temperature Pulse Rate 56 L Respiratory Rate Blood Pressure Pulse Oximetry Oxygen Delivery Intake/Output Intake/Output: Intake & Output 08/09/24 08/10/24 08/11/24 08/12/24 23:59 23:59 23:59 23:59 Intake Total 2151.1 750 240 Output Total 1050 150 Balance 1101.1 600 240 Meds/Results Medications: Active Medications Generic Name Dose Route Start Last Admin Trade Name Freq PRN Reason Stop Dose Admin Acetaminophen 1,000 mg 08/10/24 18:55 Acetaminophen 500 Mg Tablet PO Q6H PRN PAIN RATED 1-3 Hydrocodone Bitart/Acetaminophen 1 tab 08/10/24 18:52 08/11/24 20:43 Hydrocodone/Acetaminophen (*Crx) 5-325 Mg Tablet PO 1 tab Q6H PRN Administration Pain Rated 4-10 Alendronate Sodium 70 mg 08/11/24 06:30 08/11/24 05:51 Alendronate Sodium 70 Mg Tablet PO 70 mg We@0630 AGUS Administration Amiodarone HCl 200 mg 08/11/24 09:00 08/12/24 10:21 Amiodarone Hcl 200 Mg Tablet PO 200 mg DAILY AGUS Administration Apixaban 5 mg 08/10/24 21:00 08/12/24 10:20 Apixaban 5 Mg Tablet PO 5 mg Q12HR AGUS Administration Atorvastatin Calcium 80 mg 08/10/24 21:00 08/11/24 20:44 Atorvastatin 40 Mg Tablet PO 80 mg HS AGUS Administration Bisacodyl 10 mg 08/10/24 18:52 Bisacodyl 10 Mg Suppository RECTAL DAILY PRN Constipation Calcium Carbonate 500 mg 08/11/24 09:00 08/12/24 10:10 Calcium/Vitamin D 500 Mg/5 Mcg (200 I.U.) Tablet PO Not Given DAILY [facility] Cyanocobalamin 1,000 mcg 08/12/24 09:00 08/12/24 10:23 Cyanocobalamin Inj 1,000 Mcg/Ml Vial IM 08/14/24 09:01 1,000 mcg DAILY AGUS Administration Cyanocobalamin 1,000 mcg 08/12/24 09:00 08/12/24 10:20 Cyanocobalamin 1,000 Mcg Tablet PO 1,000 mcg QAM AGUS Administration Diclofenac Sodium 0 applic 08/11/24 09:00 08/11/24 18:31 Diclofenac Sodium 1% 100 Gm Gel (*Bkc) TOPICAL Not Given TID [facility] Docusate Sodium 100 mg 08/10/24 21:00 08/12/24 10:21 Docusate Sodium 100 Mg Capsule PO 100 mg Q12HR AGUS Administration Ezetimibe 10 mg 08/11/24 09:00 08/12/24 10:28 Ezetimibe 10 Mg Tablet PO Not Given DAILY [facility] Gabapentin 200 mg 08/10/24 19:05 08/12/24 10:10 Gabapentin 100 Mg Capsule PO Not Given TID AGUS Ceftriaxone Sodium 1 gm in 50 mls @ 100 mls/hr 08/11/24 21:25 08/11/24 22:15 Rocephin 1 Gm/Ns 50 Ml IVPB 100 mls/hr HS AGUS Administration Linaclotide 145 mcg 08/10/24 18:52 Linaclotide 145 Mcg Capsule PO DAILY PRN Constipation Metoprolol Succinate 25 mg 08/12/24 09:00 08/12/24 10:20 Metoprolol Succinate Ext Rel 25 Mg Tabcr PO 25 mg DAILY AGUS Administration Midodrine 5 mg 08/11/24 09:00 08/12/24 10:23 Midodrine Hcl 2.5 Mg Tablet PO 5 mg TID AGUS Administration Ondansetron HCl 4 mg 08/10/24 12:29 Ondansetron Inj 4 Mg/2 Ml Vial IV PUSH Q4H PRN Nausea Pantoprazole Sodium 40 mg 08/11/24 09:00 08/12/24 10:21 Pantoprazole 40 Mg Tablet PO 40 mg QAM AGUS Administration Polyethylene Glycol 17 gm 08/11/24 09:00 08/11/24 09:00 Polyethylene Glycol 3350 17 Gm Powd.Pack PO 17 gm QAM AGUS Administration Sertraline HCl 50 mg 08/11/24 09:00 08/12/24 10:10 Sertraline Hcl 50 Mg Tablet PO Not Given DAILY [facility] Radiology Results: ITS Impressions Abdomen/Pelvis CT 08/10/24 10:58 IMPRESSION: Findings consistent with fecal impaction to the level of the sigmoid colon, likely the cause of patient's abdominal pain. No additional acute findings. Innumerable nonacute findings, as detailed above. Labs Labs: Laboratory Results - last 24 hr 08/12/24 08/12/24 04:46 04:47 WBC 4.9 RBC 2.87 L Hgb 9.5 L Hct 29.1 L MCV 101.4 H MCH 33.1 MCHC 32.6 RDW 13.0 Plt Count 150 MPV 11.9 H Sodium 135 L Potassium 3.8 Chloride 103 Carbon Dioxide 25 Anion Gap 7 BUN 11 Creatinine 0.96 Estim Creat Clear Calc 35 Estimated GFR 56 L Glucose 81 Calcium 8.7 Magnesium 1.7 Iron 31 L TIBC 241 L Vitamin B12 < 159.0 L Folate 9.1 TSH (Reflex) 2.760
[2024-08-12] MEDS: polyethylene glycoL 3350 17 GM POWD.PACK PO (14:02)
[2024-08-12] MEDS: GABAPENTIN 100 MG CAPSULE 200 MG PO (17:15)
[2024-08-12] MEDS: CEFDINIR 300 MG CAPSULE PO (20:02)
[2024-08-12] MEDS: HYDROcodone/acetaminophen (*CRX) 5-325 MG TABLET 1 TAB PO (20:02)
[2024-08-12] MEDS: ATORVASTATIN 40 MG TABLET 80 MG PO (20:02)
--- NOTE | 2024-08-12 23:59 | ADMGEN ---
This patient, Tiera Lobato, was down graded to [id number]. Patient/family oriented to hospital policies and general routines including ID bracelet, bed and alarms, visiting hours, pain management, procedures, bathroom and other care routines, personal items, smoking policy, room service/diet, and visiting hours. Information on how to activate the Rapid Response Team has been discussed. Patient/Family are encouraged to report perceived risks to care and to ask questions if they do not understand what they are told or what they should do.
[2024-08-13 00:20] VITALS: BP 126/81; PULSE 70; RESP 18; TEMP 37.1; O2SAT 97
--- NOTE | 2024-08-13 00:25 | PC.NURSE ---
This patient, Tiera Lobato, was transferred to [ [email or web address]] on 08/13/24 at 2340. Personal belongings sent with patient. Report given to [[email or web address] ]. Appropriate documentation sent with patient.
[2024-08-13 05:00] VITALS: BP 128/75; PULSE 66; RESP 20; TEMP 36.8; O2SAT 98
[2024-08-13 08:00] VITALS: O2SAT 98
[2024-08-13] MEDS: CYANOCOBALAMIN 1,000 MCG TABLET 1000 MCG PO (08:32)
[2024-08-13 08:33] VITALS: PULSE 88
[2024-08-13] MEDS: AMIODARONE HCL 200 MG TABLET PO (08:33)
[2024-08-13] MEDS: CEFDINIR 300 MG CAPSULE PO (08:33)
[2024-08-13] MEDS: CALCIUM/VITAMIN D 500 MG/5 MCG (200 I.U.) TABLET PO (08:33)
[2024-08-13] MEDS: APIXABAN 5 MG TABLET PO (08:33)
[2024-08-13] MEDS: DOCUSATE SODIUM 100 MG CAPSULE PO (08:33)
[2024-08-13 08:34] VITALS: PULSE 88
[2024-08-13] MEDS: METOPROLOL SUCCINATE EXT REL 25 MG TABCR PO (08:34)
[2024-08-13] MEDS: EZETIMIBE 10 MG TABLET PO (08:34)
[2024-08-13] MEDS: GABAPENTIN 100 MG CAPSULE 200 MG PO ×2 (08:34→12:31)
[2024-08-13] MEDS: polyethylene glycoL 3350 17 GM POWD.PACK PO (08:35)
[2024-08-13] MEDS: SERTRALINE HCL 50 MG TABLET PO (08:35)
[2024-08-13] MEDS: MIDODRINE HCL 2.5 MG TABLET 5 MG PO ×2 (08:35→12:31)
[2024-08-13] MEDS: PANTOPRAZOLE 40 MG TABLET PO (08:35)
[2024-08-13] MEDS: CYANOCOBALAMIN INJ 1,000 MCG/ML VIAL 1000 MCG IM (12:31)
--- NOTE | 2024-08-13 14:32 | PM.DS ---
DS: Admitting Diagnosis Discharge Date 08/13/24 Admitting Diagnosis Abdominal Pain, Constipation DS: Discharge Diagnosis Discharge Diagnosis (1) Atrial fibrillation with rapid ventricular response: Code(s): I48.91 - Unspecified atrial fibrillation Status: Acute (2) Fecal impaction: Code(s): K56.41 - Fecal impaction Status: Acute (3) Chronic kidney disease, stage 3a: Code(s): N18.31 - Chronic kidney disease, stage 3a Status: Chronic (4) B12 deficiency anemia: Code(s): D51.9 - Vitamin B12 deficiency anemia, unspecified Status: Acute (5) UTI (urinary tract infection): Code(s): N39.0 - Urinary tract infection, site not specified Status: Acute DS: Summary Hospital Course Reason for hospitalization: 79yo female with CKD, chronic anemia, paroxysmal AFib, DVT, hypertrophic cardiomyopathy, osteoporosis, HLD, NSTEMI, and chronic idiopathic constipation here for abdominal pain. Please see H&P for details. Hospital Course: Patient with tachycardia and EKG showing AFib RVR, rate 139, intraventricular conduction delay, LVH with ST-T change, baseline artifact. Recurrent AFib probably related to valsalva with her constipation. Diltiazem drip started. She was resumed on her amiodarone and metoprolol. She converted to sinus rhythm. Diltiazem stopped. TSH normal. Eliquis continued as well. Cardiology consulted and appreciate their input. Patient presents with abdominal pain. CT abd/pelvis show fecal impaction to the level of the sigmoid colon, likely the cause of patient's abdominal pain. No additional acute findings. Digital disimpaction in the ED partially successful. MiraLax, stool softener and enemas with good results. KUB showing resolution of impaction. Cr 0.98 and GFR 55. Previous Cr 1.1 and GFR 48 on 06/06/2024. We trended renal function. Hgb dropped to 9.5. Anemia with macrocytosis. B12 level <159. Iron 31, TIBC 241 with ISat 13%. Ferritin 137. B12 IM daily x3 (but she only took 1 dose). She was started on oral B12. She wis agreeable to have b12 injections in outpatient setting. She will need followup B12 levels to ensure oral supplements are sufficent for her. UA is consistent with UTI. UCx collected. Rocephin started. UCx growing EColi sensitive to Rocephin. She had clinical improvement. She was up ambulating in the room with walker. She overall did well and was able to be discharged home on 08/13/24. Status at Discharge Cognitive/behavioral status at discharge: stable Time Spent with Patient Time attestation: Total time spent providing and/or coordinating discharge services: 35 minutes Time spent: Greater than 30 minutes Exam Narrative: AF 98.3 128/75 88 20 98% ra Gen - NARD Chest - CTA bilaterally, nml RR CV - RRR S1/S2 Abd - Soft, NT/ND, Positive BS Ext - No pedal edema Psych - Nml mood and affect Skin - Warm and dry DS: Data Data Completed and Pending Labs on day of discharge: Labs from last 24 hours 08/12/24 04:46 % Saturation 13 L Ferritin 137.00 Preliminary micro results at discharge 08/10/24 10:12 Blood Culture - Preliminary Blood 08/10/24 10:13 Blood Culture - Preliminary Blood Discharge Plan Discharge Attending physician on discharge: Mundo Ruth Consulting providers: Stephenie Torres Discharging Clinician: Mundo Ruth Anticipated Discharge Date/Time: 08/13/24 14:41 Patient Disposition: Home, Self-Care Activity: as tolerated Diet: regular Discharge Instructions: Care Coordination: Patient to have [facility] for PT/OT eval and treat, and [place] [facility]. Their phone number is [phone], if you have any questions; they will contact you to schedule their first visit. RN Please fax discharge instructions to [phone]. Please complete your antibiotic course even if you are starting to feel well. Take precautions to avoid falls. Rise slowly from a lying or sitting position. Pause before standing or walking. Contact your doctor or call 911 and come to the Emergency Room if you have lightheadedness with standing or other worrisome symptoms. Avoid NSAIDs (ibuprofen, naproxen, Aleve). Tylenol is safe to take. Follow-up with your primary care provider next week to help administer the B12 injections as we discussed. Please call for appointment. Thank you for using [facility] for your health care needs. Patient Instructions: Antibiotic Form, Cyanocobalamin (By injection), Apixaban (By mouth), Vitamin B12 Deficiency (GEN) Patient Language: Khmer Stand Alone Forms: General Discharge Information Follow-up/Referrals: Cristian Ling MD [Primary Care Provider] - Call for Appointment Discharge Medications: New docusate sodium 100 mg Capsule 100 mg PO Q12HR Qty: 60 1RF polyethylene glycol 3350 [Miralax] 17 gram Powder In Packet 17 g PO QAM Qty: 30 1RF cyanocobalamin (vitamin B-12) 1,000 mcg/mL Solution 1,000 mcg IM DAILY Qty: 2 0RF cefdinir 300 mg Capsule 300 mg PO Q12HR Qty: 6 0RF cyanocobalamin (vitamin B-12) [Vitamin B-12] 1,000 mcg Tablet 1,000 mcg PO QAM Qty: 30 1RF Continued amiodarone 200 mg Tablet 200 mg PO DAILY bisacodyl [Dulcolax (bisacodyl)] 10 mg Suppository 10 mg RECTAL DAILY PRN (Reason: Constipation) pantoprazole 40 mg Tablet,Delayed Release (Dr/Ec) 40 mg PO QAM sertraline 50 mg Tablet 50 mg PO DAILY calcium carbonate-vitamin D3 [Oyster Shell Calcium-Vit D3] 500 mg-5 mcg (200 unit) Tablet 1 tablet PO DAILY atorvastatin 80 mg tablet 80 mg PO HS Eliquis 5 mg Tablet 5 mg PO Q12HR Qty: 60 0RF midodrine 2.5 mg Tablet 5 mg PO TID Qty: 90 0RF metoprolol succinate 25 mg tablet extended release 24 hr 25 mg PO DAILY ondansetron 4 mg tablet,disintegrating 4 mg PO Q8H PRN (Reason: nausea and vomiting) gabapentin 100 mg capsule 200 mg PO TID diclofenac sodium 1 % gel 2 g TOPICAL TID alendronate 70 mg tablet 70 mg PO WEEKLY Qty: 13 2RF Rx Instructions: Every Friday ezetimibe 10 mg tablet 10 mg PO DAILY Qty: 30 5RF Linzess 145 mcg capsule 145 mcg PO DAILY PRN (Reason: Constipation) Qty: 90 0RF acetaminophen 500 mg tablet See Rx Instructions .ROUTE .COMPLEX Qty: 60 5RF Dose Instruction: TAKE 2 TABLETS BY MOUTH EVERY 6 HOURS NEEDED FOR PAIN (SCALE 1-3) Rx Instructions: TAKE 2 TABLETS BY MOUTH EVERY 6 HOURS NEEDED FOR PAIN (SCALE 1-3) hydrocodone-acetaminophen 5-325 mg tablet 1 tablet PO Q6H PRN (Reason: Pain Rated 4-10) Qty: 30 0RF Date of admission: 08/10/24 12:29 Primary Care Provider: Cristian Ling Admitting Provider: Adriel Larkin Attending physician on admission: Adriel Larkin Condition: Stable Hospitalist MIPS Heart Failure (Exclusion) Patient has history of Heart Transplant or Left Ventricular Assistive Device?: No IF YES, STOP HERE Heart Failure (Qualifier) Patient has current or prior documentation of LVEF less than or equal to 40%, or mod/servere depressed LVSF?: No IF NO, STOP HERE
[2024-08-13 15:57] VITALS: BP 126/69; PULSE 56; RESP 16; TEMP 36.6; O2SAT 100
== END 2024-08-13 16:03 | disposition home health service (06) ==
LOC: ANHED 11:59 → ANHIMU 08-12 09:55 → ANH3MEDSUR 08-13 08:59 → ANHIMU 08-16 07:19
PROVIDERS: Student in an Organized Health Care Education/Training Program; Admitting Provider Internal Medicine; Emergency Provider Physician Assistant; PCP Family Medicine Adolescent Medicine; Visit Provider Internal Medicine
DX: K56.41 Fecal impaction (principal); N39.0 Urinary tract infection, site not specified; B96.20 Unspecified Escherichia coli [E. coli] as the cause of diseases classified elsewhere; I48.0 Paroxysmal atrial fibrillation; I95.1 Orthostatic hypotension; I12.9 Hypertensive chronic kidney disease with stage 1 through stage 4 chronic kidney disease, or unspecified chronic kidney disease; N18.31 Chronic kidney disease, stage 3a; D64.9 Anemia, unspecified; D51.9 Vitamin B12 deficiency anemia, unspecified; I25.10 Atherosclerotic heart disease of native coronary artery without angina pectoris; I25.2 Old myocardial infarction; I42.2 Other hypertrophic cardiomyopathy; I65.23 Occlusion and stenosis of bilateral carotid arteries; K21.9 Gastro-esophageal reflux disease without esophagitis; M81.0 Age-related osteoporosis without current pathological fracture; E78.5 Hyperlipidemia, unspecified; H81.10 Benign paroxysmal vertigo, unspecified ear; I73.9 Peripheral vascular disease, unspecified; K86.2 Cyst of pancreas; Z20.822 Contact with and (suspected) exposure to COVID-19; Z79.01 Long term (current) use of anticoagulants; Z79.899 Other long term (current) drug therapy; Z86.718 Personal history of other venous thrombosis and embolism; Z90.49 Acquired absence of other specified parts of digestive tract; Z95.1 Presence of aortocoronary bypass graft; Z96.1 Presence of intraocular lens; Z98.49 Cataract extraction status, unspecified eye
CPT/HCPCS: 36415; 74019; 74177; 80048; 80053; 81001; 82607; 82728; 82746; 83540; 83550; 83605; 83690; 83735; 84443; 85025; 85027; 87040; 87086; 87186; 87637; 93005; 96361; 96365; 96366; 96372; 96374; 96375; 96376; 97161; 97165; 99285; A9270; G0378; J0696; J2405; J3420; J7030; J7120; Q9967

== ENCOUNTER 2024-09-06 12:22 | Outpatient (CLI) | payer OTHER, MEDICAID, SELFPAY ==
--- NOTE | ~2024-09-06 | XR_ITS ---
EXAMINATION: XR thoracic spine 3V DATE: 09/06/2024 12:57 INDICATION: Burst fractures of T11 and T12. TECHNIQUE: 3 views of thoracic spine including standing views were obtained. COMPARISON: CT abdomen and pelvis 08/10/2024, chest CT 06/04/2024 FINDINGS: There is 13 degrees levoscoliosis of cervicothoracic lumbar spine. There is a burst fractur e of T9 with 3/5 loss of height, worsened from 06/04/2024. There are burst fractures of T11 and T12 w ith 3/5 loss of height, stable from 06/04/2024. There is mildly decreased disc height at many levels. There is moderately decreased disc height at T9-T10 and T10-T11. Median sternotomy wires and mediast inal surgical clips are seen, likely from prior coronary artery bypass grafting. There are surgical c lips in the abdomen. IMPRESSION: 1. T9 burst fracture, worsened from 06/04/2024. 2. T11 and T12 burst fractures, stable from 06/04/2024. 3. Moderate thoracic spondylosis. 4. Levoscoliosis. Reviewed, dictated and finalized at location A.
--- OUTSIDE RECORDS SUMMARY | 2024-09-06 14:04 | XMS_ITS ---
Author Name Valentín Lares Address [address] [place] [address] Phone [phone] Organization [employer] [facility] ice Address [address] [place] [address] Phone [phone] Care Team Providers Care Freight Car Repairer Name Role Phone Valentín Lares Unavailable [phone] Suraj Marin Unavailable Functional Status Mental Status Allergies and Intolerances Medications Problems Reason for Referral Past Medical History
== END 2024-09-06 12:23 | disposition home or self-care (01) ==
PROVIDERS: PCP Family Medicine Adolescent Medicine; Visit Provider Nurse Practitioner Adult Health
DX: S22.072 Unstable burst fracture of T9-T10 vertebra (principal); S22.061D Stable burst fracture of T7-T8 vertebra, subsequent encounter for fracture with routine healing; S22.081D Stable burst fracture of T11-T12 vertebra, subsequent encounter for fracture with routine healing; X58.XXXD Exposure to other specified factors, subsequent encounter
CPT/HCPCS: 72072

== ENCOUNTER 2024-10-12 14:57 | Outpatient (CLI) | payer OTHER, MEDICAID, SELFPAY ==
--- NOTE | ~2024-10-12 | MR_ITS ---
MRI of the thoracic spine Clinical History: Burst fracture Technique: Axial T2-weighted and gradient images, and sagittal T1-weighted, T2-weighted, and STIR manfred ges were acquired. COMPARISON: 06/04/2024 Findings: There are stable chronic compression fractures of T11 and T12. No new fracture or subluxati on evident. There is severe compression fracture T9, with progressive loss of height as compared to p rior exam from 06/04/2024. This may be subacute in nature with focal mild marrow edema in the T9 vert ebral body. There is multilevel mild to moderate degenerative disc narrowing at the mid to lower thor acic spine. No significant disc bulge or herniation evident. No spinal canal stenosis or cord compression evident in the thoracic spine. There is probable bilateral neural foraminal narrowing at T9-T10, partially r elated to mild retropulsion and mild facet arthropathy. Remaining neural foramina appear intact. No abnormal signal seen in the spinal cord. Paravertebral soft tissues are unremarkable. Impression: Severe T9 compression fracture with progressive loss of height since 06/04/2024. This may be subacute in nature, with focal marrow edema in the T9 vertebral body. Stable chronic compression fractures of T11 and T12. Degenerative change, as above. Reviewed, dictated and finalized at location . Impression: Severe T9 compression fracture with progressive loss of height since 06/04/2024 . This may be subacute in nature, with focal marrow edema in the T9 vertebral b lucia. Stable chronic compression fractures of T11 and T12. Degenerative change, as above.
--- NOTE | ~2024-10-12 | MR_ITS ---
MRI of the lumbar spine Clinical History: Burst fracture Technique: Axial T2-weighted images, and sagittal T1-weighted, T2-weighted, and T2 fat-sat images wer e acquired. Findings: No acute fracture or subluxation seen in the lumbar spine. Chronic moderate to severe compr ession fracture deformities of T11 and T12 are present, without marrow edema. At L1-L2, there is minimal disc bulge with mild to moderate facet arthropathy. No central canal steno sis. There is moderate to advanced bilateral neural foraminal narrowing. At L2-L3, there is moderate degenerative disc narrowing. There is mild disc bulge with mild to modera te facet arthropathy. No central canal stenosis. There is mild to moderate bilateral neural foraminal narrowing. At L3-L4, there is moderate degenerative narrowing. There is diffuse disc bulge with mild facet arthr opathy. No central canal stenosis. There is moderate to severe left neural foraminal narrowing. Right neural foramen preserved. At L4-L5, there is moderate degenerative disc narrowing. There is diffuse disc bulge with moderate to advanced facet arthropathy. No ruby central canal stenosis. There is moderate to advanced left neur al foraminal narrowing, and moderate right neural foraminal narrowing. At L5-S1, there is mild disc bulge. Probable prior posterior decompression. No spinal canal stenosis or definite neural foraminal narrowing. Paravertebral soft tissues are unremarkable. Impression: Chronic compression fractures of T11 and T12, as detailed above. Moderate degenerative spondylosis of the lumbar spine, as above. Probable prior posterior decompression at L5. Reviewed, dictated and finalized at [facility]. Impression: Chronic compression fractures of T11 and T12, as detailed above. Moderate degenerative spondylosis of the lumbar spine, as above. Probable prior posterior decompression at L5.
== END 2024-10-12 14:58 | disposition home or self-care (01) ==
PROVIDERS: PCP Family Medicine Adolescent Medicine; Visit Provider Nurse Practitioner Adult Health
DX: S22.080A Wedge compression fracture of T11-T12 vertebra, initial encounter for closed fracture (principal); S22.071A Stable burst fracture of T9-T10 vertebra, initial encounter for closed fracture; S22.070A Wedge compression fracture of T9-T10 vertebra, initial encounter for closed fracture; X58.XXXA Exposure to other specified factors, initial encounter; M51.34 Other intervertebral disc degeneration, thoracic region
CPT/HCPCS: 72146; 72148

== ENCOUNTER 2025-01-06 09:27 | Inpatient (IN) | payer MEDICARE, MEDICAID, SELFPAY ==
[2025-01-06] VITALS (12 sets, daily range): BP systolic 129–162; BP diastolic 55–90; PULSE 66–82; RESP 14–24; TEMP 36.3–37.2; O2SAT 98–100; BMI 19.1
--- NOTE | ~2025-01-06 | CT_ITS ---
CLINICAL INDICATION: GI hemorrhage. COMPARISON: 08/10/2024. TECHNIQUE: Computed tomography angiography (CTA) of the chest was performed with 100 mL Omnipaque-350 intravenous contrast timed to evaluate the abdominal aorta and mesenteric vasculature. Coronal maxim um intensity projection 3D-reconstructions were created by the technologist. The dose-length product (DLP) was 193.55 mGy-cm. Automated exposure control and iterative reconstruction technique were emplo yed. FINDINGS/OBSERVATIONS: Visualized lower thorax: Interstitial thickening is detected bilaterally. The heart is enlarged, without pericardial effusion. Liver: The liver enhances homogeneously and is not enlarged. Interval resolution of the intrahepatic pneumat osis within the liver, seen on previous Gallbladder and biliary system: The gallbladder is surgically absent. Pancreas: The pancreas enhances homogeneously without ductal dilatation. Spleen: Spleen demonstrates homogeneous enhancement, without enlargement. Kidneys: The bilateral kidneys are somewhat atrophic. Well circumscribed focus of fluid attenuation exophytic from the interpolar region of the left kidney , statistically a cyst. No hydronephrosis or renal calculi. Adrenal glands: Unremarkable. Gastrointestinal tract: No active extravasation is identified. The colon is distended with fluid, and otherwise unremarkable. Appendix: The appendix is not definitively visualized. However, no pericecal inflammatory change is identified suggest the presence of acute appendicitis. Vasculature: Densely calcified atherosclerotic disease. The celiac axis is patent, and demonstrates conventional branching anatomy. The superficial mesenteric artery is also patent. The inferior mesenteric artery is diminutive but patent. Lymph nodes: No pathologically enlarged or morphologically suspicious lymph nodes within the retroperitoneum or at the root of the mesentery. Pelvic structures: The bladder is only minimally distended and otherwise unremarkable. The uterus is retroverted and retroflexed. Body wall and musculoskeletal: Age-appropriate degenerative disease within the lower thoracic and lumbosacral spines. IMPRESSION: No active extravasation is identified within the colon to account for patient's presenting symptoms, as detailed above. Reviewed, dictated and finalized at location A.
--- OUTSIDE RECORDS SUMMARY | 2025-01-06 09:30 | XMS_ITS | Referral Summary ---
Author Organization [facility] Address [facility] [place] [address] Care Team Providers Care Baler Operator Name Role Phone Cristian Ling MD Primary Care Prov ider Allergies Active Allergy Reactions Criticality Noted Date Comments Codeine Hives,Shortness of breath High 01/15/2021 Latex Itching Low 11/06/2015 Milk Nausea & Vomiting Low 03/14/2023 Tramadol Shortness of breath High 12/10/2017 Medications alendronate (FOSAMAX) 70 mg tablet TAKE 1 TABLET BY MOUTH ONE TIME PER WEEK 0 9 Active metoprolol XL (TOPROL-XL) 25 mg extended release tabletIndication s:Paroxysmal atrial fibrillation with RVR (HCC) Take 1 tablet (25 mg total) by mouth daily 30 tablet 11 3 Active Additional Information Patient not taking.Reported on 09/29/2024 apixaban (Eliquis) 5 mg tabletIndication s:atrial fibrillation Take 1 tablet (5 mg total) by mouth 2 (two) times a day 60 tablet 3 Active calcium carbonate-vitami n D3 1,250mg (500mg elemental) - 5 mcg (200 units) per tablet Take 1 tablet by mouth daily 30 tablet 11 3 Active linaCLOtide (Linzess) 145 mcg capsuleIndicatio ns:Constipation Predominant Irritable Bowel Syndrome Take 1 capsule (145 mcg total) by mouth daily before breakfast 30 capsule 3 Active diclofenac sodium (VOLTAREN) 1 % gel Apply 2 g topically 3 (three) times a day 20 [address] (PROTONIX) 40 mg EC tabletIndication s:Treatment of Non-Bleeding Gastric Disorder Take 1 tablet (40 mg total) by mouth daily 30 tablet 11 3 Active ondansetron (ZOFRAN) 4 mg tablet Take 1 tablet (4 mg total) by mouth every 8 (eight) hours as needed for nausea or vomiting Active midodrine (PROAMATINE) 5 mg tabletIndication s:Symptomatic Orthostatic Hypotension Take 1 tablet (5 mg [...] exceed 8 capsules/day) 20 capsule 4 Active Additional Information Patient not taking.Reported on 09/29/2024 amiodarone (PACERONE) 200 mg tablet TAKE 1 TABLET BY MOUTH ONCE DAILY 30 tablet 4 Active acetaminophen (TYLENOL) 500 mg tablet Take 1 tablet (500 mg total) by mouth 3 (three) times a day 4 Active sertraline (ZOLOFT) 50 mg tablet Take 1 tablet (50 mg total) by mouth daily 4 Active docusate sodium (COLACE) 100 mg capsule 5 Active polyethylene glycol (MIRALAX) 17 gram/dose bulk powder 5 Active tiZANidine (ZANAFLEX) 2 mg tablet 5 Active cyanocobalamin (Vitamin B-12) 1,000 mcg tablet 5 Active calcitonin (MIACALCIN) 200 unit/actuation nasal spray 5 Active atorvastatin (LIPITOR) 80 mg tablet Take 1 tablet (80 mg total) by mouth nightly 90 tablet 3 5 Active ezetimibe (ZETIA) 10 mg tablet Take 1 tablet (10 mg total) by mouth daily 90 tablet 3 5 Active Active Problems Problem Noted Date Diagnosed [...] Plan (12/01/2023 12:47 PM CDT): Follows with [facility] Hematology. Anemia thought to be due to iron deficiency as well as CKD stage IIIb. Received iron infusion in 09/2023. On admission hgb 8.4 (bl 7- 9). Iron 72, ferritin 1715. - Stable H/H, last 8.5 NSVT (nonsustained ventricular tachycardia) 11/2023 A-fib 02/17/2023 Assessment & Plan (12/01/2023 12:47 PM CDT): Follows with [facility] Cardiology. History of afib with difficulty with rate control requiring cardioversion. Home regimen: amiodarone 200mg daily, metoprolol XL 25mg daily, eliquis 5mg BID. - continue home amiodarone 200mg daily - continue home metoprolol XL 25mg daily - restarted eliquis 5mg BID Atrial fibrillation 01/13/2023 Apical variant hypertrophic cardiomyopathy 12/05 Assessment & Plan (11/29/2023 1:05 PM CDT): - continue home metoprolol XL 25mg daily Paroxysmal atrial fibrillation 12/05/2022 Right hip pain 11/22/2021 Assessment & Plan [...] spine films at that time. History of [place] (myocardial infarction) 12/10/2017 Overview (12/10/2017): 2012 Primary hypertension 11/06/2012 Coronary artery disease invo lving [place] coronary artery of [place] heart without angina pectoris 09/23/2012 Hx of [...] Tobacco: Never Tobacco Cessation:Counseling Given: Not Answered [facility] Utilities Answer Date Recorded In the past 12 months has e [employer], gas, oil, or water Jaunt threatened to shut off services in your [...] week 12/04/2023 How often do you attend shinto or mu-ism serv ices? Never 12/04/2023 Do you belong to any clubs o r organizations such as shinto groups, unions, fraternal or athletic groups, or [...] 09/28/2020 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 Gender Identity Female 02/07/2021 4:33 PM CDT Sexual Orientation Straight 02/07/2021 4: 33 PM CDT Last Filed Vital Signs Vital Sign Reading Time Taken Comments Blood Pressure 161/74 09/29/2024 4:21 PM CDT Pulse 60 09/29/2024 4:21 PM CDT Temperature 36 C (96.8 F) 01/12/2024 10:50 AM CDT Respiratory Rate 12 01/12/2024 11:40 AM CDT Oxygen Saturation 100% 09/29/2024 4:21 PM CDT Inhaled Oxygen Concentration - - Weight 59.4 kg (131 lb) 09/29/2024 4:21 PM CDT Height 162.6 cm (5' 4) 09/29/2024 4:21 PM CDT Body Mass Index 22.49 09/29/2024 4:21 PM CDT Plan of Treatment Not on file Medical Devices Implanted Type Area Assistant Art Director Device Identifier Shelf Expiration Date Model / Serial / Lot Rt Total Knee Arthroplasty Right: Knee Cataract-Lens Implant Eye [employer] Viabil 10 Mm X 4cm Shortwire [id number] - [id number] - [id number] Implanted:Qty: 1 on 11/26/2023 by Heydi Fenton MD at [facility] [employer] 06/01/2026 [id number] / [id number] / Procedures Procedure Name Priority Date/Time Associated Diagnosis Comments HEPATITIS PANEL, ACUTE STAT 11/24/2023 12:01 PM CDT from Last 3 Months or Most Recently Relevant to Health Maintenance Results * Hepatitis panel, acute Blood (11/24/2023 12:01 PM CDT) Hep A IgM Nonreactive Nonreactive Hep B core IgM Nonreactive Nonreactive [facility] Hep C Ab Nonreactive Nonreactive [facility] Comment:Antibodies to HCV no t detected. Does NOT exclude the possibility of recent exposure to HCV. Current interpretive data was last revised on 22 HepBsAg Nonreactive Nonreactive [facility] Blood 11/24/2023 12:0 1 PM CDT 11/24/2023 12:20 PM CDT Kassidy Cunningham MD LAB MICROBIOLOGY - G ENERAL ORDERABLES Final Result [facility] One [facility] Department [place] [address] from Last 3 Months or Most Recently Relevant to Health Maintenance Insurance [facility] Advance Directives For more information, please contact: [phone] * Full Code (Latest Code Status on File) Date Activated Date Inactivated Comments 01/12/2024 9:55 AM 01/12/2024 3:53 PM * Full Code Date Activated Date Inactivated Comments 11/26/2023 1:02 PM 12/03/2023 7:36 PM * Full Code Date Activated Date Inactivated Comments 11/25/2023 6:29 PM 11/26/2023 1:02 PM * Full Code Date Activated Date Inactivated Comments 02/17/2023 5:25 PM 03/21/2023 7:10 PM Care Teams Baler Operator Relationship Specialty Start Date End Date Cristian Ling MD [address] [place] [address] PCP - General 10/16/16
--- OUTSIDE RECORDS SUMMARY | 2025-01-06 09:30 | XMS_ITS | Clinical Summary ---
Author Organization [facility] Address [address] [place] [id number] Care Team Providers Care Sanitation Inspector Name Role Phone Cristian Ling MD [...] Plan (12/01/2023 12:47 PM CDT): Follows with [facility] Hematology. Anemia thought to be due to iron deficiency as well as CKD stage IIIb. Received iron infusion in 09/2023. On admission hgb 8.4 (bl 7- 9). Iron 72, ferritin 1715. - Stable H/H, last 8.5 NSVT (nonsustained ventricular tachycardia) 11/2023 A-fib 02/17/2023 Assessment & Plan (12/01/2023 12:47 PM CDT): Follows with [facility] Cardiology. History of afib with difficulty [...] spine films at that time. History of [place] (myocardial infarction) 12/10/2017 Overview (12/10/2017): 2012 Primary hypertension 11/06/2012 Coronary artery disease invo lving [place] coronary artery of [place] heart without angina pectoris 09/23/2012 Hx of CABG 09/23/2012 Assessment & Plan (11/29/2023 1:03 PM CDT): - continue home metoprolol XL 25mg daily - continue home atorvastatin 80mg daily - continue home zetia Immunizations Immunization Administration Dates Next Due Moderna SARS-CoV-2 Monovalent Vaccination (12+ Y RS) 09/06/2020,08/09/2020 Surgical History Surgery Date Site/Laterality Comments CORONARY ARTERY BYPASS GRAFT 06/16/2012 - 06/15/2013 Double by-pass - [facility] COLON SURGERY 06/16/1992 - 06/15/1993 Repair burst colon MICRODISCECTOMY 06/16/1998 - 06/15/1999 Dr. James ([place], [place]) TOTAL KNEE ARTHROPLASTY 06/16/2017 - 06/15/2018 Right FLUORO GUIDED INJECTION HIP RIGHT 05/16/2022 Right FLUORO GUIDED INJECTION HIP RIGHT 08/15/2022 Right FLUORO GUIDED INJECTION HIP RIGHT 12/10/2022 Right CARDIOVERSION 03/16/2023 - 04/15/2023 FLUORO GUIDED INJECTION HIP RIGHT 05/13/2023 Right FLUORO GUIDED INJECTION HIP RIGHT 03/17/2024 Right Medical History Medical History Date Comments Vertigo History of [place] (myocardial infarction) 2012 Heart murmur High cholesterol [...] Tobacco: Never Tobacco Cessation:Counseling Given: Not Answered [facility] Utilities Answer Date Recorded In the past 12 months has e [employer] gas, oil, or water [employer] threatened to shut off services in your [...] How often do you attend restoration or shinto serv ices? 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 Gender Identity Female 02/07/2021 4:33 PM CDT [...] 09/29/2024 4:21 PM CDT Plan of Treatment Health Maintenance Due Date Last Done Comments Osteoporosis Screening-Bone Density Scan 1945 DTaP/Tdap/Td Vaccine (1 - Tdap) 1957 Hepatitis B Screening 1964 Pneumococcal vaccine 65+ (1 of 2 - PCV) 1965 Zoster Vaccine (1 of 2) 1996 Well Visit 65+ 2011 Depression Screening 09/28/2021 09/28/2020, 09/29/19 21 Covid-19 Vaccine ( season) 2024, 08/09/2020 Fall Risk Assessment 01/11/2025 01/12/2024 Influenza Vaccine (#1) 2025 Hepatitis C Screening Completed 11/24/2023 Medical Devices Implanted Type Area Law Enforcement Director Device Identifier Shelf Expiration Date Model / Serial / Lot Rt Total Knee Arthroplasty Right: Knee Cataract-Lens Implant Eye [employer] Viabil 10 Mm X 4cm Shortwire [id number] - [id number] - [id number] Implanted:Qty: 1 on 11/26/2023 by Heydi Fenton MD at [facility] [employer] 06/01/2026 [id number] / [id number] / Procedures Procedure Name Priority Date/Time Associated Diagnosis Comments HEPATITIS PANEL, ACUTE STAT 11/24/2023 12:01 PM CDT from Last 3 Months or Most Recently Relevant to Health Maintenance Results * Hepatitis panel, acute Blood (11/24/2023 12:01 PM CDT) Hep A IgM Nonreactive Nonreactive Hep B core IgM Nonreactive Nonreactive [facility] Hep C Ab Nonreactive Nonreactive [facility] Comment:Antibodies to HCV no t detected. Does NOT exclude the possibility of recent exposure to HCV. Current interpretive data was last revised on 22 HepBsAg Nonreactive Nonreactive [facility] Blood 11/24/2023 12:0 1 PM CDT 11/24/2023 12:20 PM CDT Kassidy Cunningham MD LAB MICROBIOLOGY - G ENERAL ORDERABLES Final Result [facility] One [facility] Department [place] [address] from Last 3 Months or Most Recently Relevant to Health Maintenance Insurance [facility] [employer] [facility] Advance Directives For more information, please contact: [phone] * Full Code (Latest Code Status on File) Date Activated Date Inactivated Comments 01/12/2024 9:55 AM 01/12/2024 3:53 PM * Full Code Date Activated Date Inactivated Comments 11/26/2023 1:02 PM 12/03/2023 7:36 PM * Full Code Date Activated Date Inactivated Comments 11/25/2023 6:29 PM 11/26/2023 1:02 PM * Full Code Date Activated Date Inactivated Comments 02/17/2023 5:25 PM 03/21/2023 7:10 PM Care Teams Sanitation Inspector Relationship Specialty Start Date End Date Cristian Ling MD [address] [place] [address] PCP - General 10/16/16
--- OUTSIDE RECORDS SUMMARY | 2025-01-06 09:30 | XMS_ITS ---
Author Name Auto Generated, Auto Generated Organization [facility] [employer] [facility] Address [address] [place] [address] Phone [phone] Care Team Providers Care Feeder Catcher Name Role Phone Valentín Lares Unavailable [phone] uSraj Marin Unavailable [phone] Functional Status No Results Mental Status No Results Allergies and Intolerances Name Onset Date Reaction Severity nitroglycerin (Allergy) FriApr 26 18:58:00 EST 2022 cheese (Allergy) FriMar 24 13:36:00 EDT 2022 Diarrhea Severe Milk (Allergy) FriMar 21 17:37:00 EDT 2022 Latex (Allergy) FriMar 21 17:37:00 EDT 2022 tramadol (Allergy) FriMar 21 17:37:00 EDT 2022 codeine (Allergy) FriMar 21 17:37:00 EDT 2022 Medications Medication Directions Start Date End Date midodrine 5 mg tablet 1 tablet TABLET Or al 3 Times Daily Indication: Orthostatic Hypotension;HOLD IF BP IS GREATER THAN 100/65 FriMay 06 17:15:00 EST 2022May 06 01:00:00 EST 2022 Eliquis 5 mg tablet 1 tablet TABLET Oral Every 12 Hours Indication: DVT proph FriApr 26 14:00:00 EST 2022May 06 01:00:00 EST 2022 midodrine 5 mg tablet 1 tablet TABLET Or al 3 Times Daily Indication: Orthostatic Hypotension FriApr 26 19:00:00 EST 2022May 06 01:00:00 EST 2022 acetaminophen 500 mg tablet 2 tablets TA BLET Oral PRN 3 Times Daily Indication: Indication: pain 2 TABLETS= 1000MG*DO NOT EXCEED 3GM APAP/DAY FROM ALL SOURCES* FriApr 26 19:03:00 EST 2022Apr 26 19:08:00 EST 2022 metoprolol succinate ER 25 mg tablet,extended release 24 hr 1 TABLET TABLET, EXTENDED RELEASE 24 HR Oral 1 Time Daily Indication: HTN FriApr 26 19:05:00 EST 2022May 06 01:00:00 EST 2022 acetaminophen 500 mg tablet 2 tablets TA BLET Oral PRN Every 6 Hours Indication: Indication: pain 2 TABLETS= 1000MG*DO NOT EXCEED 3GM APAP/DAY FROM ALL SOURCES* FriApr 26 19:07:00 EST 2022May 06 01:00:00 EST 2022 gabapentin 100 mg capsule 200 mg/2 tabs CAPSULE Oral 3 Times Daily Indication: Neuropathy FriApr 15 04:30:00 EDT 2022May 06 01:00:00 EST 2022 Dulcolax (bisacodyl) 10 mg rectal suppository Administer 1 SUPPOSITORY, RECTAL Rectal PRN 2 Times Daily Indication: PRN constipation FriApr 10 05:00:00 EDT 2022May 06 01:00:00 EST 2022 furosemide 20 mg tablet 1 tab TABLET Ora l 1 Time Daily Indication: CHF FriApr 03 07:00:00 EDT 2022Apr 26 19:07:00 2022 furosemide 40 mg tablet 1 tablet TABLET Oral 1 Time Daily for 1 Day Indication: CHF FriMar 29 16:45:00 EDT 2022Mar 30 16:44:00 EDT 2022 furosemide 40 mg tablet 1 tablet TABLET Oral 1 Time Daily Indication: CHF FriMar 30 07:00:00 EDT 2022Apr 02 10:46:00 EDT 2022 chlorhexidine gluconate 0.12 % mouthwash as directed MOUTHWASH Oral 2 Times Daily for 7 Days Indication: mouth sores Listerine gargle BID x 1 week FriMar 28 08:00:00 EDT 2022Apr 04 07:59:00 EDT 2022 Orajel 3X Mouth Sores 20 %-0.1 %-0.15 % mucosal gel as directed GEL (GRAM) Oral PRN Every 2 Hours for 14 Days Indication: mouth sores FriMar 26 15:00:00 EDT 2022Apr 09 14:59:00 EDT 2022 chlorhexidine gluconate 0.12 % mouthwash as directed MOUTHWASH Oral 2 Times Daily for 7 Days Indication: mouth sores Listerine gargle BID x 1 week FriMar 27 07:00:00 EDT 2022Mar 27 08:01:00 EDT 2022 Linzess 145 mcg capsule 1 CAPSULE CAPSUL E Oral PRN 1 Time Daily Indication: constipation FriMar 25 11:00:00 EDT 2022May 06 01:00:00 EST 2022 acetaminophen 500 mg tablet 2 tab TABLET Oral PRN 3 Times Daily Indication: Indication: pain 2 TABLETS= 1000MG*DO NOT EXCEED 3GM APAP/DAY FROM ALL SOURCES* FriMar 24 16:32:00 EDT 2022Apr 26 19:04:00 EST 2022 acetaminophen 500 mg tablet 2 TABLETS TA BLET Oral 3 Times Daily Indication: pain 2 TABLETS= 1000MG*DO NOT EXCEED 3GM APAP/DAY FROM ALL SOURCES* FriMar 21 17:30:00 EDT 2022Mar 24 16:29:00 EDT 2022 alendronate 70 mg tablet 1 TABLET TABLET Oral 1 Time Weekly Indication: bone health FriMar 21 17:30:00 EDT 2022May 06 01:00:00 EST 2022 amiodarone 400 mg tablet 1 TABLET TABLET Oral 1 Time Daily Indication: antiarrhythmic FriMar 21 17:30:00 T 2022Mar 25 04:51:00 EDT 2022 Eliquis 5 mg tablet 1 TABLET TABLET Oral 2 Times Daily Indication: afib FriMar 21 17:30:00 EDT 2022Apr 08 07:34:00 EDT 2022 atorvastatin 80 mg tablet 1 TABLET TABLE T Oral Hour Of Sleep Indication: cholesterol FriMar 21 17:30:00 T 2022May 06 01:00:00 EST 2022 Oyster Shell Calcium-Vitamin D3 500 mg-5 mcg (200 unit) tablet 1 TABLET TABLET Oral 1 Time Daily Indication: supplement FriMar 21 17:30:00 2022May 06 01:00:00 EST 2022 cholecalciferol (vitamin D3) 25 mcg (1,000 unit) tablet 1 TABLET TABLET Oral 1 Time Daily Indication: supplement FriMar 21 17:30:00 2022May 06 01:00:00 EST 2022 clopidogreL 75 mg tablet 1 TABLET TABLET Oral 1 Time Daily Indication: preventative FriMar 21 17:30:00 EDT 2022Apr 02 15:15:00 EDT 2022 cyanocobalamin (vit B-12) 2,000 mcg tablet 1 TABLET TABLET Oral 1 Time Daily Indication: supplement FriMar 21 17:30:00 EDT 2022Mar 25 04:51:00 EDT 2022 diclofenac sodium 75 mg tablet,delayed release 1 TABLET TABLET, DELAYED RELEASE (ENTERIC COATED) Oral 2 Times Daily Indication: pain FriMar 21 17:30:00 EDT 2022Apr 02 17:35:00 EDT 2022 Arthritis Pain (diclofenac) 1 % topical gel 2GM GEL (GRAM) Topical 3 Times Daily Indication: pain FriMar 21 17:30:00 ED2022May 06 01:00:00 EST 2022 ezetimibe 10 mg tablet 1 TABLET TABLET O ral 1 Time Daily Indication: cholesterol FriMar 21 17:30:00 2022May 06 01:00:00 EST 2022 gabapentin 100 mg capsule 2 CAPSULES CAP JUAN Oral 2 Times Daily Indication: neuropathy 2 CAPSULES= 200MG FriMar 21 17:30:00 ED2022Apr 15 04:55:00 EDT 2022 Linzess 145 mcg capsule 1 CAPSULE CAPSUL E Oral 1 Time Daily Indication: constipation BEFORE BREAKFAST FriMar 21 17:30:00 ED2022Mar 25 11:24:00 EDT 2022 metoprolol tartrate 25 mg tablet 1 TABLET TABLET Oral PRN 1 Time Daily Indication: htn FriMar 21 17:30:00 ED2022Apr 26 19:05:00 EST 2022 metoprolol succinate ER 25 mg tablet,extended release 24 hr 1 TABLET TABLET, EXTENDED RELEASE 24 HR Oral 1 Time Daily Indication: htn FriMar 21 17:30:00 EDT 2022Apr 26 19:06:00 EST 2022 ondansetron 4 mg disintegrating tablet 1 TABLET TABLET,DISINTEGRATING Oral PRN Every 8 Hours Indication: N/V FriMar 21 17:30:00 ED2022May 06 01:00:00 EST 2022 pantoprazole 40 mg tablet,delayed release 1 TABLET TABLET, DELAYED RELEASE (ENTERIC COATED) Oral 1 Time Daily Indication: GERD FriMar 21 17:30:00 2022May 06 01:00:00 EST 2022 sertraline 50 mg tablet 1 TABLET TABLET Oral 1 Time Daily Indication: DEPRESSION FriMar 21 17:30:00 EDT 2022May 06 01:00:00 EST 2022 TubersoL 5 tub. unit/0.1 mL intradermal injection solution 0.1 ml VIAL (ML) Intradermal 1 Time Weekly for 2 Weeks Indication: admission 1st injection on admission, then one week after. Read between 48 and 72 hours FriMar 22 07:00:00 EDT 2022Apr 05 06:59:00 EDT 2022 TubersoL 5 tub. unit/0.1 mL intradermal injection solution Read Results VIAL (ML) Other 1 Time Weekly for 2 Weeks Indication: admission Read results between 48-72 hours after 1st and 2nd (1 week apart). If positive do chest x-ray. FriMar 24 07:00:00 EDT 2022Apr 07 06:59:00 EDT 2022 cyanocobalamin (vit B-12) 1,000 mcg tablet 2,000 mcg Oral 1 Time Daily Indication: supplement FriMar 21 09:00:00 EDT 2022May 06 01:00:00 EST 2022 amiodarone 200 mg tablet 400 mg Oral 1 T eber Daily Indication: A-fib FriMar 21 09:00:00 EDT 2022May 06 01:00:00 EST 2022 Problems Active Concerns * Paroxysmal atrial fibrillation* Code: * Start Date: FriMar 21 00:00:00 EDT 2022 * End Date: * Text: * Irritable bowel syndrome, unspecified* Code: * Start Date: FriMar 21 00:00:00 EDT 2022 * End Date: * Text: * Orthostatic hypotension* Code: * Start Date: FriMar 21 00:00:00 EDT 2022 * End Date: * Text: * Anemia in other chronic diseases classified elsewhere* Code: * Start Date: FriMar 21 00:00:00 EDT 2022 * End Date: * Text: * Septic pulmonary embolism without acute cor pulmonale* Code: * Start Date: FriMar 21 00:00:00 EDT 2022 * End Date: * Text: * Atherosclerotic heart disease of [place] coronary artery without angina pectoris* Code: * Start Date: FriMar 21 00:00:00 EDT 2022 * End Date: * Text: * Old myocardial infarction* Code: * Start Date: FriMar 21 00:00:00 EDT 2022 * End Date: * Text: * Presence of aortocoronary bypass graft* Code: * Start Date: FriMar 21 00:00:00 EDT 2022 * End Date: * Text: * Displaced fracture of right ulna styloid process, subsequent encounter for closed fracture with routine healing* Code: * Start Date: FriMar 21 00:00:00 EDT 2022 * End Date: * Text: * Other intraarticular fracture of lower end of right radius, subsequent encounter for closed fracture with routine healing* Code: * Start Date: FriMar 21 00:00:00 EDT 2022 * End Date: * Text: * Unspecified osteoarthritis, unspecified site* Code: * Start Date: FriMar 21 00:00:00 EDT 2022 * End Date: * Text: * Age-related osteoporosis without current pathological fracture* Code: * Start Date: FriMar 21 00:00:00 EDT 2022 * End Date: * Text: * Other cardiomyopathies* Code: * Start Date: FriMar 21 00:00:00 EDT 2022 * End Date: * Text: * Presence of coronary angioplasty implant and graft* Code: * Start Date: FriMar 21 00:00:00 EDT 2022 * End Date: * Text: * Bacteremia* Code: * Start Date: FriMar 21 00:00:00 EDT 2022 * End Date: * Text: * Other specified anxiety disorders* Code: * Start Date: FriMar 21 00:00:00 EDT 2022 * End Date: * Text: * Hyperlipidemia, unspecified* Code: * Start Date: FriMar 21 00:00:00 EDT 2022 * End Date: * Text: * Gastro-esophageal reflux disease without esophagitis* Code: * Start Date: FriMar 21 00:00:00 EDT 2022 * End Date: * Text: * Cellulitis, unspecified* Code: * Start Date: FriMar 21 00:00:00 EDT 2022 * End Date: * Text: * Personal history of other venous thrombosis and embolism* Code: * Start Date: FriMar 21 00:00:00 EDT 2022 * End Date: * Text: * Methicillin resistant Staphylococcus aureus infection as the cause of diseases classified elsewhere* Code: * Start Date: FriMar 21 00:00:00 EDT 2022 * End Date: * Text: * Hypertensive chronic kidney disease with stage 1 through stage 4 chronic kidney disease, or unspecified chronic kidney disease* Code: * Start Date: FriMar 21 00:00:00 EDT 2022 * End Date: * Text: * Chronic kidney disease, stage 3a* Code: * Start Date: FriMar 21 00:00:00 EDT 2022 * End Date: * Text: * supervisor intermediates (current) use of anticoagulants* Code: * Start Date: FriMar 21 00:00:00 EDT 2022 * End Date: * Text: * supervisor intermediates (current) use of antithrombotics/antiplatelets* Code: * Start Date: FriMar 21 00:00:00 EDT 2022 * End Date: * Text: * senior living (current) use of bisphosphonates* Code: * Start Date: FriMar 21 00:00:00 EDT 2022 * End Date: * Text: * Personal history of pulmonary embolism* Code: * Start Date: FriMar 21 00:00:00 EDT 2022 * End Date: * Text: * Personal history of (healed) traumatic fracture* Code: * Start Date: FriMar 21 00:00:00 EDT 2022 * End Date: * Text: * supervisor intermediates (current) use of opiate analgesic* Code: * Start Date: FriApr 26 00:00:00 EST 2022 * End Date: * Text: * Polyneuropathy, unspecified* Code: * Start Date: FriApr 26 00:00:00 EST 2022 * End Date: * Text: Reason for Referral Past Medical History
--- OUTSIDE RECORDS SUMMARY | 2025-01-06 09:30 | XMS_ITS ---
Author Name Auto Generated, Auto Generated Organization [facility] [facility] Address [address] [place] [address] Phone [phone] Care Team Providers Care Rn Manager Name Role Phone Valentín Lares Unavailable [phone] Suraj Marin Unavailable Functional Status No Results Mental Status No [...] * Text: * Atherosclerotic heart disease of [place] coronary artery without angina pectoris* Code: [...] 2022 * End Date: * Text: * terminal makeup operator (current) use of anticoagulants* Code: * Start Date: FriMar 21 00:00:00 EDT 2022 * End Date: * Text: * terminal makeup operator (current) use of antithrombotics/antiplatelets* Code: * Start Date: FriMar 21 00:00:00 EDT 2022 * End Date: * Text: * long-term (current) use of bisphosphonates* Code: * Start Date: FriMar 21 00:00:00 EDT 2022 * End Date: * Text: * Personal history of pulmonary embolism* Code: * Start Date: FriMar 21 00:00:00 EDT 2022 * End Date: * Text: * Personal history of (healed) traumatic fracture* Code: * Start Date: FriMar 21 00:00:00 EDT 2022 * End Date: * Text: * terminal makeup operator (current) use of opiate analgesic* Code: * Start Date: FriApr 26 00:00:00 EST 2022 * End Date: * Text: * Polyneuropathy, unspecified* Code: * Start Date: FriApr 26 00:00:00 EST 2022 * End Date: * Text: Reason for Referral Past Medical History
--- OUTSIDE RECORDS SUMMARY | 2025-01-06 09:30 | XMS_ITS | Patient Health Record ---
Author Organization [facility] Address [address] [place] [address] Care Team Providers Care Shift Production Associate Name Role Phone Cristian Pollard Primary Care Provider Unavail able Curtis Gonzalez Unavailable [phone] Maxx Pratt Unavailable Unavailable Allergies Allergen (clinical drug ingredient) Drug/Non Drug Allergy documented on EMR Reaction Allergy Type Onset Date Status codeine Codeine Unknown Drug Allergy Active tramadol Tramadol Unknown Drug Allergy Active Reason For Referral No Information Medications Medication SIG (Take, Route, Fr equency, Duration) Notes Start Date End Date Status Gabapentin Active Atorvastatin Calcium Active Alendronate Sodium A ctive predniSONE Active Metoprolol Succinate ER Active Diclofenac Sodium Ac tive Sertraline HCl Activ e Lisinopril Active Linzess Active Ezetimibe Active Social History Tobacco Use: Social History Observation Description Date Details (start date - stop date) Never Smoker NA - NA Tobacco Use/Smoking Question Answer Notes Are you a nonsmoker Alcohol Screen (Audit-C) Question Answer Notes Did you have a drink containing alcohol in the p ast year? Yes Points 0 Interpretation Negative Problems Problem Type SNOMED Code ICD Code Onset Dates Problem Status W/U Status Risk Notes Problem Fear of medical treatment (741116474) Fear of injections and transfusions (F40.231) Active confirmed Problem Essential hypertension (61240786) Essential (primary) hypertension (I10) Active confirmed Problem Lumbar radiculopathy (613539445) Radiculopathy, lumbar region (M54.16) Active confirmed Plan Of Treatment No Information Insurance Providers Payer Name Payer Address Payer Phone Subscriber Number Group Number Insured Name Patient Relationship to Insured Coverage Start Date Coverage End Date [employer] [address] [place] [address] [id number] Tiera Lobato Self - patient is the insured Medical (General) History Medical History History ICD Code high blood pressure heart attack osteoarthtitis headaches irritable bowel syndrome diverticulosis Surgical History Surgery Date(Month/Year) colon burst 1992 back surgery 1998 double bypass 2012 right knee replacement 2018
--- OUTSIDE RECORDS SUMMARY | 2025-01-06 09:30 | XMS_ITS | Encounter Summary ---
Author Organization [facility] Address [address] [place] [address] Phone Care Team Providers Care Director Of Midwifery/Staff Midwife Name Role Phone Cristian Ling MD Primary Care Prov ider Belinda Quigley LAYAWAY CLERK Unavailable Encounter Details Date Type Department Care Team (Late st Contact Info) Description 01/10/2023 Telephone [facility] Cardiology [address] [facility] Advanced Medicine 8th [place] [address] [place] [address] Sami Stafford MD [address] [id number] Social History Tobacco Use Types Packs/Day Years [...] on file Legal Sex Female 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 difficile suspected 11/24/2023 11/25/202311/24 10:38 AM CDT COVID: Suspected 12/07/2023 12/07/2023 12/07/2023 5:54 PM CDT documented as of this encounter Care Teams Director Of Midwifery/Staff Midwife Relationship Specialty Start Date End Date Cristian Ling MD [address] [place] [address] PCP - General 10/16/16 Belinda Quigley, SERG [address] [facility] [place] Mailstop [phone] [place] [address] SHOP Outpatient Forestry Aide 12/04/23 12/30/23 documented as of this encounter
[2025-01-06 12:46] LABS: Hematocrit 30.8 % (37.0-47.0); Hemoglobin 9.5 g/dL (12.0-15.0); Immature Granulocyte Percent A 1.2 % (0-0.5); Lymphocytes Absolute Auto 1.40 K/mm3 (0.9-3.2); Mean Corpuscular HGB Conc 30.8 g/dl (32-36); Mean Corpuscular Hemoglobin 31.7 pg (26-34); Mean Corpuscular Volume 102.7 fl (80-100); Nucleated Red Blood Cells Absolute Auto 0.000 K/mm3 (0.0-0.012); Nucleated Red Blood Cells Perc 0.0 % (0.0-0.2); Platelet Count Result 335 k/mm3 (150-375); Red Blood Count 3.00 M/mm3 (4.2-5.4); White Blood Count 9.2 K/mm3 (4.5-10.0)
[2025-01-06 12:52] LABS: Add Urine Microscopic? YES; Appearance Urine Clear (Clear); Glucose Urine UA Negative (Negative); Leukocyte Esterase Ur Negative LEU/UL (Negative); Nitrate Urine Negative (Negative); Non Pathogenic Casts 0-2; Specific Grav Ur 1.019 (1.001-1.035)
--- NOTE | 2025-01-06 13:04 | ED_ITS ---
HPI - Nausea/Vomiting/Diarrhea General Chief complaint: Nausea/Vomiting/Diarrhea Stated complaint: diarrhea Time Seen by Provider: 01/06/25 12:41 Source: patient Mode of arrival: ambulatory Limitations: no limitations History of Present Illness HPI Narrative: 79-year-old female presenting to emergency department for chief complaint of diarrhea. She has had diarrhea for 10 days straight. It has been liquid. She has no obvious cause of the diarrhea with no recent travel, abnormal foods. For the last 3 days she notes some bright red blood when she has the diarrhea. No pain. She has o Celyquis for AFib Related Data Home Medications ?Medication ?Instructions ?Recorded ?Confirmed ?Last Taken ?Type amiodarone 200 mg tablet 200 mg PO DAILY 04/15/23 10/28/24 06/04/24 History atorvastatin 80 mg tablet 80 mg PO HS 04/15/23 10/28/24 06/03/24 History bisacodyl 10 mg rectal suppository 10 mg RECTAL DAILY PRN Constipation 04/15/23 10/28/24 Unknown History (Dulcolax (bisacodyl)) calcium 500 mg (as 1 tablet PO DAILY 04/15/23 10/28/24 06/04/24 History carbonate)-vitamin D3 5 mcg (200 unit) tablet (Oyster Shell Calcium-Vitamin D3) pantoprazole 40 mg tablet,delayed 40 mg PO QAM 04/15/23 10/28/24 06/04/24 History release sertraline 50 mg tablet 50 mg PO DAILY 04/15/23 10/28/24 06/04/24 History metoprolol succinate 25 mg 25 mg PO DAILY 06/05/24 10/28/24 06/04/24 History tablet,extended release 24 hr ondansetron 4 mg disintegrating 4 mg PO Q8H PRN nausea and vomiting 06/05/24 10/28/24 Unknown History tablet gabapentin 100 mg capsule 200 mg PO TID 08/10/24 10/28/24 Unknown History Allergies Allergy/AdvReac Type Severity Reaction Status Date / Time codeine Allergy Unknown Anaphylaxis Verified 01/06/25 09:28 Latex, Natural Rubber Allergy Unknown SKIN Verified 01/06/25 09:28 IRRITATION nitroglycerin AdvReac Severe Hypotension Verified 01/06/25 09:28 tramadol AdvReac Mild Nausea and Verified 01/06/25 09:28 Vomiting, HEADACHE, DIZZINESS Review of Systems 2 Review of Systems: All systems reviewed & are unremarkable except as noted in HPI and below (HPI) [facility] Past Medical History Medical History UTI (urinary tract infection) Old myocardial infarction (~2012) Peripheral vascular disease, unspecified Pancreatic cyst Hypertrophic cardiomyopathy Apical variant noted on cardiac MRI 08/22/2022 Coronary artery disease Aortic atherosclerosis (~2006) Acute pancreatitis (03/2022) Choledocholithiasis Status post ERCP with post ERCP pancreatitis at [place] 12/03/2023 Acute hepatitis (11/15/23) Due to medications verses choledocholithiasis Chronic kidney disease Stage III A Chronic anemia Paroxysmal atrial fibrillation History of cardioversion in January 2023 Deep venous thrombosis 1960s Intra-articular fracture of distal end of right radius with volar angulation Close reduction January 2023 Benign positional vertigo Diverticulitis With history of perforation Chronic lower back pain Osteoporosis Hyperlipidemia Cardiorenal syndrome with renal failure Lumbar spinal stenosis Compression fracture of thoracic spine, non-traumatic (2017) T11 Gastro-esophageal reflux disease without esophagitis Occlusion and stenosis of bilateral carotid arteries Chronic idiopathic constipation Surgical History Surgical History History of cataract extraction with lens replacement History of coronary artery bypass graft x 2 (2012) LAWSON to LAD and saphenous vein graft to obtuse marginal History of bowel resection (1992) Due to prior bowel perforation History of cholecystectomy History of total right knee replacement (2017) History of lumbar surgery (1998) Lumbar diskectomy Family History Family History Father Malignant neoplasm of prostate Mother Alzheimer's dementia Sibling Alzheimer's dementia Social History Social History Social History: Surrogate medical decision maker: Storm Lobato, son. Code status: Full code. Smoking status: Never smoker Second hand tobacco smoke exposure: Yes Alcohol intake: never Substance use: former Substance use type: painkillers Do You Feel Safe in your Home?: Yes Lack of Transportation: YES Lack of Food: Never True Current Housing: I Have Housing Concerned About Future Housing: No Difficulty Paying Gas/Electric Bills: No Difficulty Paying for Meds: No Currently Unemployed: No Education: High School Diploma/GED Difficulty w/ Childcare or Family Care: No Living arrangements: assisted living Additional living arrangements comments: . She has 3 sons. Ambulates with a walker. Spiritual care concerns: No Agree to blood products: Yes Exam 2 Narrative: Constitutional: Generally well appearing, no acute distress Head: Atraumatic, no deformities. Eyes: Pupils equal, round, and reactive to light. Neck: Supple, no tracheal deviation, no JVD. ENMT: Mucous membranes moist Cardiovascular: S1, S2 auscultated. No murmurs, rubs, or gallops. No S3/S4. Normal Distal pulses. No peripheral edema. Respiratory: Lung sounds equal. No wheezes, rales, or rhonchi. Gastrointestinal: Abdomen was soft and non-tender. Non-distended. No rebound or guarding. Genitourinary: Deferred Musculoskeletal: Normal muscle tone and bulk. No obvious deformities or tenderness over extremities. Skin: No rashes. Neurological: Strength 5/5 in extremities. Cranial nerves I-XII grossly intact. Distal sensation intact. Mental Status: Awake, alert and oriented x3. Follows commands Course Vital Signs Vital signs: Vital Signs Temperature 36.5 C 01/06/25 09:39 Pulse Rate 71 01/06/25 09:39 Respiratory Rate 20 01/06/25 09:39 Blood Pressure 140/70 01/06/25 09:39 Pulse Oximetry 98 01/06/25 09:39 Temperature 36.5 C 01/06/25 09:39 Pulse Rate 66 01/06/25 13:30 Respiratory Rate 24 H 01/06/25 13:30 Blood Pressure 148/60 H 01/06/25 13:30 Pulse Oximetry 100 01/06/25 13:30 Oxygen Delivery Room Air 01/06/25 12:41 MDM - Nausea/Vomiting/Diarrhea MDM Narrative Medical decision making narrative: Generally well-appearing on exam. Vitals are regular apart from slight hypertension. Patient abdomen is soft and benign to palpation. Urine was clear that she provided. Will obtain CTA for further evaluation of the abdomen for her 10 days of diarrheal issues as well as the bright red blood per rectum. Coags also obtained as well as abdominal labs. Fluid bolus given. Workup reviewed. CTA does not show any obvious bleed but does show diarrhea. Slightly anemic. Given a dose of Protonix. My concern is for GI bleed on Eliquis. Needs to be admitted for further monitoring a minimum and evaluation by GI. Spoke with hospitalist who agrees with plan. Admission orders placed. Lab Data 01/06/25 12:38 01/06/25 12:38 Labs: Lab Results 01/06/25 Range/Units 12:38 WBC 9.2 (4.5-10.0) K/mm3 RBC 3.00 L (4.2-5.4) M/mm3 Hgb 9.5 L (12.0-15.0) g/dL Hct 30.8 L (37.0-47.0) % MCV 102.7 H (80-100) fl MCH 31.7 (26-34) pg MCHC 30.8 L (32-36) g/dl RDW 13.2 (11.5-14.5) % Plt Count 335 D (150-375) k/mm3 MPV 10.5 H (7.4-10.4) fl Immature Gran % (Auto) 1.2 H (0-0.5) % Neut % (Auto) 78.1 H (45.5-73.1) % Lymph % (Auto) 15.3 L (18.3-44.2) % Dare % (Auto) 4.7 (2.6-8.5) % Eos % (Auto) 0.4 (0-4.4) % Baso % (Auto) 0.3 (0.2-1.2) % Lymph # (Auto) 1.40 (0.9-3.2) K/mm3 Dare # (Auto) 0.4 (0.1-0.6) K/mm3 Eos # (Auto) 0.0 (0-0.3) K/mm3 Baso # (Auto) 0.0 (0.0-0.1) K/mm3 Abs Immat Gran (auto) 0.11 H (0.00-0.031) K/mm3 Absolute Neuts (auto) 7.2 H (1.3-6.7) K/mm3 Absolute Nucleated RBC 0.000 (0.0-0.012) K/mm3 Nucleated RBC % 0.0 (0.0-0.2) % PT 20.9 H (11.1-14.7) Seconds INR 1.9 APTT 60.5 H (22.3-36.8) Seconds Sodium 137 (137-145) mmol/L Potassium 4.4 (3.4-5.0) mmol/L Chloride 106 (98-107) mmol/L Carbon Dioxide 17 L (22-30) mmol/L Anion Gap 14 H (4-12) mmol/L BUN 55 H D (7-17) mg/dL Creatinine 2.16 H (0.7-1.0) mg/dL Estim Creat Clear Calc 16 ml/min Estimated GFR 22 L (59 - ) Glucose 111 H (65-110) mg/dL Calcium 10.1 (8.4-10.2) mg/dL Total Bilirubin 0.6 (0.2-1.3) mg/dL AST 37 H (14-36) U/L ALT 31 (6-35) U/L Alkaline Phosphatase 84 (38-126) U/L Total Protein 7.6 (6.3-8.2) g/dL Albumin 4.1 (3.5-5.1) g/dL Lipase 260 (23-300) U/L Urine Color Yellow (Yellow) Urine Appearance Clear (Clear) Urine pH 5.5 (5.0-9.0) Ur Specific [place] 1.019 (1.001-1.035) Urine Protein Trace (Negative) mg/dL Urine Glucose (UA) Negative (Negative) mg/dL Urine Ketones Trace H (Negative) mg/dL Ur Blood (Man) Negative (Negative) Urine Nitrate Negative (Negative) Urine Bilirubin Negative (Negative) Urine Urobilinogen 0.2 (<2.0) mg/dL Leukocyte Esterase Rfl Negative (Negative) BETTY/UL Urine RBC 0-2 (0-2) /hpf Urine WBC 0-5 (0-3) /hpf Ur Squamous Epith Cells None seen (Few) /hpf Urine Bacteria None seen /hpf Urine Casts 0-2 Discharge Plan Discharge Clinical Impression: Gastrointestinal bleeding, lower Anemia Qualifiers: Iron deficiency anemia type: other iron deficiency Patient Disposition: Still a Patient Condition: Serious Patient Language: Bengali Prescriptions: No Action acetaminophen [Mapap (acetaminophen)] 500 mg capsule 1,000 mg PO Q4H PRN (Reason: pain) Qty: 100 5RF Rx Instructions: Can take up to 4 times a day amiodarone 200 mg Tablet 200 mg PO DAILY bisacodyl [Dulcolax (bisacodyl)] 10 mg Suppository 10 mg RECTAL DAILY PRN (Reason: Constipation) pantoprazole 40 mg Tablet,Delayed Release (Dr/Ec) 40 mg PO QAM sertraline 50 mg Tablet 50 mg PO DAILY calcium carbonate-vitamin D3 [Oyster Shell Calcium-Vit D3] 500 mg-5 mcg (200 unit) Tablet 1 tablet PO DAILY atorvastatin 80 mg tablet 80 mg PO HS Eliquis 5 mg Tablet 5 mg PO Q12HR Qty: 60 0RF midodrine 2.5 mg Tablet 5 mg PO TID Qty: 90 0RF metoprolol succinate 25 mg tablet extended release 24 hr 25 mg PO DAILY ondansetron 4 mg tablet,disintegrating 4 mg PO Q8H PRN (Reason: nausea and vomiting) gabapentin 100 mg capsule 200 mg PO TID cyanocobalamin (vitamin B-12) [Vitamin B-12] 1,000 mcg Tablet 1,000 mcg PO QAM Qty: 30 1RF cyanocobalamin (vitamin B-12) 1,000 mcg/mL Solution 1,000 mcg IM DAILY Qty: 2 0RF alendronate 70 mg tablet 70 mg PO WEEKLY Qty: 13 2RF Rx Instructions: Every Friday ezetimibe 10 mg tablet 10 mg PO DAILY Qty: 30 5RF Linzess 145 mcg capsule 145 mcg PO DAILY PRN (Reason: Constipation) Qty: 90 0RF polyethylene glycol 3350 [Miralax] 17 gram powder in packet 25.5 g PO QAM Qty: 45 4RF hydrocodone-acetaminophen 5-325 mg tablet 1 tablet PO Q6H PRN (Reason: Pain Rated 4-10) Qty: 30 0RF diclofenac sodium 1 % gel 2 g TOPICAL TID Qty: 300 3RF diclofenac sodium 75 mg tablet,delayed release (DR/EC) 75 mg PO BID Qty: 60 5RF calcitonin (salmon) 200 unit/actuation spray,non-aerosol 1 spray intranasal (ALT) DAILY Qty: 3.7 1RF tizanidine 2 mg tablet See Rx Instructions .ROUTE .COMPLEX Qty: 30 0RF Dose Instruction: TAKE 1 TABLET BY MOUTH FOUR TIMES DAILY NEEDED FOR MUSCLE SPASMS Rx Instructions: TAKE 1 TABLET BY MOUTH FOUR TIMES DAILY NEEDED FOR MUSCLE SPASMS Follow-up/Referrals: Cristian Ling MD [Primary Care Provider] - Time of Disposition: 17:14
--- OUTSIDE RECORDS SUMMARY | 2025-01-06 13:04 | XMS_ITS | Referral Summary ---
Author Organization [facility] Address [facility] [place] [address] Care Team Providers Care Radiology Rn Name Role Phone Cristian Ling MD [...] (12/01/2023 12:47 PM CDT): Follows with [facility] Hematology. Anemia thought to be due to iron deficiency as well as CKD stage IIIb. Received iron infusion in 09/2023. On admission hgb 8.4 (bl 7- 9). Iron 72, ferritin 1715. - Stable H/H, last 8.5 NSVT (nonsustained ventricular tachycardia) 11/2023 A-fib 02/17/2023 Assessment & Plan (12/01/2023 12:47 PM CDT): Follows with [facility] Cardiology. History of afib with [...] spine films at that time. History of PA (myocardial infarction) 12/10/2017 Overview (12/10/2017): 2012 Primary hypertension 11/06/2012 Coronary artery disease invo lving [place] coronary artery of [place] heart without angina pectoris 09/23/2012 Hx of [...] Tobacco: Never Tobacco Cessation:Counseling Given: Not Answered [facility] Utilities Answer Date Recorded In the past 12 months has e View and Chew, gas, oil, or water [employer] threatened to shut off services in your [...] How often do you attend orthodox or baptism serv ices? 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 Gender Identity Female 02/07/2021 4:33 PM [...] on file Medical Devices Implanted Type Area Metal Molder Device Identifier Shelf Expiration Date Model / Serial / Lot Rt Total Knee Arthroplasty Right: Knee Cataract-Lens Implant Eye [employer] Viabil 10 Mm X 4cm Shortwire [id number] - [id number] - [id number] Implanted:Qty: 1 on 11/26/2023 by Heydi Fenton MD at [facility] [employer] 06/01/2026 [id number] / [id number] / Procedures Procedure Name Priority Date/Time Associated Diagnosis Comments HEPATITIS PANEL, ACUTE STAT 11/24/2023 12:01 PM CDT from Last 3 Months or Most Recently Relevant to Health Maintenance Results * Hepatitis panel, acute Blood (11/24/2023 12:01 PM CDT) Hep A IgM Nonreactive Nonreactive Hep B core IgM Nonreactive Nonreactive [facility] Hep C Ab Nonreactive Nonreactive [facility] Comment:Antibodies to HCV no t detected. Does NOT exclude the possibility of recent exposure to HCV. Current interpretive data was last revised on 22 HepBsAg Nonreactive Nonreactive [facility] Blood 11/24/2023 12:0 1 PM CDT 11/24/2023 12:20 PM CDT Kassidy Cunningham MD LAB MICROBIOLOGY - G ENERAL ORDERABLES Final Result [facility] [place] [address] from Last 3 Months or Most Recently Relevant to Health Maintenance Insurance [facility] Advance Directives For more information, please contact: [phone] * Full Code (Latest Code Status on File) Date Activated Date Inactivated Comments 01/12/2024 9:55 AM 01/12/2024 3:53 PM * Full Code Date Activated Date Inactivated Comments 11/26/2023 1:02 PM 12/03/2023 7:36 PM * Full Code Date Activated Date Inactivated Comments 11/25/2023 6:29 PM 11/26/2023 1:02 PM * Full Code Date Activated Date Inactivated Comments 02/17/2023 5:25 PM 03/21/2023 7:10 PM Care Teams Radiology Rn Relationship Specialty Start Date End Date Cristian Ling MD [address] [place] [address] PCP - General 10/16/16
--- OUTSIDE RECORDS SUMMARY | 2025-01-06 13:04 | XMS_ITS | Encounter Summary ---
Author Organization [facility] Address [address] [place] [address] Phone Care Team Providers Care Green Coffee Blender Name Role Phone Cristian Ling MD Primary Care Prov ider Belinda Quigley TELEPHONE INFORMATION SUPERVISOR Unavailable Encounter Details Date Type Department Care Team (Late st Contact Info) Description 01/10/2023 Telephone [facility] Cardiology [address] [facility] Advanced Medicine 8th [place] [address] [place] [address] Sami Stafford MD [address] [id number] Social History Tobacco Use Types Packs/Day Years [...] on file Legal Sex Female 7:12 AM FACILITY SECURITY OFFICER Gender Identity Female 02/07/2021 4:33 PM [...] PM Lena Mccoy 02/18/2023 02/18/2023 3:05 AM FACILITY SECURITY OFFICER C. difficile suspected 11/24/2023 11/25/202311/24 10:38 AM CDT COVID: Suspected 12/07/2023 12/07/2023 12/07/2023 5:54 PM CDT documented as of this encounter Care Teams Green Coffee Blender Relationship Specialty Start Date End Date Cristian Ling MD [address] [place] [address] PCP - General 10/16/16 Belinda Quigley, SERG [address] [facility] ([facility] Mailstop [phone] [place] [address] SHOP Outpatient Supervisor/Port Director 12/04/23 12/30/23 documented as of this encounter
--- OUTSIDE RECORDS SUMMARY | 2025-01-06 13:04 | XMS_ITS ---
Author Name Auto Generated, Auto Generated Organization [facility] Address [address] [place] [address] Phone [phone] Care Team Providers Care Trimming Cutter Machine Name Role Phone Valentín Lares Unavailable [phone] Suraj Marin Unavailable Functional Status No Results [...] * Text: * Atherosclerotic heart disease of [place] coronary artery without angina pectoris* Code: * [...] 2022 * End Date: * Text: * local company intermodal truck driver (current) use of anticoagulants* Code: * Start Date: FriMar 21 00:00:00 EDT 2022 * End Date: * Text: * local company intermodal truck driver (current) use of antithrombotics/antiplatelets* Code: * Start Date: FriMar 21 00:00:00 EDT 2022 * End Date: * Text: * [facility] (current) use of bisphosphonates* Code: * Start Date: FriMar 21 00:00:00 EDT 2022 * End Date: * Text: * Personal history of pulmonary embolism* Code: * Start Date: FriMar 21 00:00:00 EDT 2022 * End Date: * Text: * Personal history of (healed) traumatic fracture* Code: * Start Date: FriMar 21 00:00:00 EDT 2022 * End Date: * Text: * local company intermodal truck driver (current) use of opiate analgesic* Code: * Start Date: FriApr 26 00:00:00 EST 2022 * End Date: * Text: * Polyneuropathy, unspecified* Code: * Start Date: FriApr 26 00:00:00 EST 2022 * End Date: * Text: Reason for Referral Past Medical History
--- OUTSIDE RECORDS SUMMARY | 2025-01-06 13:04 | XMS_ITS ---
Author Name Auto Generated, Auto Generated Organization [employer] [facility] Address [address] [place] [address] Phone [phone] Care Team Providers Care Flange Turner Name Role Phone Valentín Lares Unavailable [phone] Suraj Marin Unavailable Functional Status No Results [...] * Text: * Atherosclerotic heart disease of [place] coronary artery without angina pectoris* Code: * [...] 2022 * End Date: * Text: * adjunct faculty for medical terminology (current) use of anticoagulants* Code: * Start Date: FriMar 21 00:00:00 EDT 2022 * End Date: * Text: * adjunct faculty for medical terminology (current) use of antithrombotics/antiplatelets* Code: * Start [...] 2022 * End Date: * Text: * adjunct faculty for medical terminology (current) use of opiate analgesic* Code: * Start Date: FriApr 26 00:00:00 EST 2022 * End Date: * Text: * Polyneuropathy, unspecified* Code: * Start Date: FriApr 26 00:00:00 EST 2022 * End Date: * Text: Reason for Referral Past Medical History
--- OUTSIDE RECORDS SUMMARY | 2025-01-06 13:04 | XMS_ITS | Clinical Summary ---
Author Organization [facility] Address [address] [place] [address] Care Team Providers Care Junior High School Teacher Name Role Phone Cristian Ling MD [...] (12/01/2023 12:47 PM CDT): Follows with [facility] Hematology. Anemia thought to be due to iron deficiency as well as CKD stage IIIb. Received iron infusion in 09/2023. On admission hgb 8.4 (bl 7- 9). Iron 72, ferritin 1715. - Stable H/H, last 8.5 NSVT (nonsustained ventricular tachycardia) 11/2023 A-fib 02/17/2023 Assessment & Plan (12/01/2023 12:47 PM CDT): Follows with [facility] Cardiology. History of afib with difficulty [...] spine films at that time. 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 James ([place], [place]) TOTAL KNEE ARTHROPLASTY 06/16/2017 - 06/15/2018 Right FLUORO GUIDED INJECTION HIP RIGHT 05/16/2022 Right FLUORO GUIDED INJECTION HIP RIGHT 08/15/2022 Right FLUORO GUIDED INJECTION HIP RIGHT 12/10/2022 Right CARDIOVERSION 03/16/2023 - 04/15/2023 FLUORO GUIDED INJECTION HIP RIGHT 05/13/2023 Right FLUORO GUIDED INJECTION HIP RIGHT 03/17/2024 Right Medical History Medical History Date Comments Vertigo History of NE (myocardial infarction) 2012 Heart murmur High cholesterol [...] Tobacco: Never Tobacco Cessation:Counseling Given: Not Answered [facility] Utilities Answer Date Recorded In the past 12 months has e [employer] gas, oil, or water [employer] threatened to shut off services in your [...] How often do you attend restoration or mandaen serv ices? Never 12/04/2023 Do you belong [...] the PHQ-9) 0 09/28/2020 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 Gender Identity Female 02/07/2021 4:33 PM [...] Completed 11/24/2023 Medical Devices Implanted Type Area Services Coordinator Device Identifier Shelf Expiration Date Model / Serial / Lot Rt Total Knee Arthroplasty Right: Knee Cataract-Lens Implant Eye [employer] Viabil 10 Mm X 4cm Shortwire [id number] - [id number] - [id number] Implanted:Qty: 1 on 11/26/2023 by Heydi Fenton MD at [facility] [employer] 06/01/2026 [id number] / [id number] / Procedures Procedure Name Priority Date/Time Associated [...] revised on 22 HepBsAg Nonreactive Nonreactive [facility] Blood 11/24/2023 12:0 1 PM CDT 11/24/2023 12:20 PM CDT Kassidy Cunningham MD LAB MICROBIOLOGY - G ENERAL ORDERABLES Final Result [facility] [place] [address] from Last 3 Months or Most Recently Relevant to Health Maintenance Insurance [facility] IDPA [facility] Advance Directives For more information, please contact: [phone] * Full Code (Latest Code Status on File) Date Activated Date Inactivated Comments 01/12/2024 9:55 AM 01/12/2024 3:53 PM * Full Code Date Activated Date Inactivated Comments 11/26/2023 1:02 PM 12/03/2023 7:36 PM * Full Code Date Activated Date Inactivated Comments 11/25/2023 6:29 PM 11/26/2023 1:02 PM * Full Code Date Activated Date Inactivated Comments 02/17/2023 5:25 PM 03/21/2023 7:10 PM Care Teams Junior High School Teacher Relationship Specialty Start Date End Date Cristian Ling MD [address] [place] [address] PCP - General 10/16/16
[2025-01-06 13:20] LABS: Alanine Aminotransferase 31 U/L (6-35); Albumin Level 4.1 g/dL (3.5-5.1); Alkaline Phosphatase 84 U/L (38-126); Anion Gap 14 mmol/L (4-12); Aspartate Amino Transferase 37 U/L (14-36); Bilirubin,Total 0.6 mg/dL (0.2-1.3); Blood Urea Nitrogen 55 mg/dL (7-17); Calcium 10.1 mg/dL (8.4-10.2); Carbon Dioxide 17 mmol/L (22-30); Chloride 106 mmol/L (98-107); Estimated CRCL calculation 16 ml/min; Estimated Glomerular Filt Rate 22; Glucose 111 mg/dL (65-110); Lipase 260 U/L (23-300); Potassium 4.4 mmol/L (3.4-5.0); Sodium 137 mmol/L (137-145); Total Protein 7.6 g/dL (6.3-8.2)
[2025-01-06 13:39] LABS: INR 1.9; Prothrombin Time 20.9 Seconds (11.1-14.7)
[2025-01-06 13:40] LABS: Partial Thromboplastin Time 60.5 Seconds (22.3-36.8)
[2025-01-06] MEDS: SODIUM CHLORIDE 0.9% IV 1,000 ML 999 ML IV CONT (14:08)
[2025-01-06] MEDS: PANTOPRAZOLE SODIUM IV 40 MG VIAL 80 MG IV PUSH (17:26)
--- OUTSIDE RECORDS SUMMARY | 2025-01-06 17:46 | XMS_ITS | Referral Summary ---
Author Organization [facility] Address [facility] [place] [address] Care Team Providers Care Supplier Development Manager Name Role Phone Cristian Ling [...] Plan (12/01/2023 12:47 PM CDT): Follows with [facility] Hematology. Anemia thought to be due to iron deficiency as well as CKD stage IIIb. Received iron infusion in 09/2023. On admission hgb 8.4 (bl 7- 9). Iron 72, ferritin 1715. - Stable H/H, last 8.5 NSVT (nonsustained ventricular tachycardia) 11/2023 A-fib 02/17/2023 Assessment & Plan (12/01/2023 12:47 PM CDT): Follows with [facility] Cardiology. History of afib with [...] spine films at that time. History of DE (myocardial infarction) 12/10/2017 Overview (12/10/2017): 2012 Primary hypertension 11/06/2012 Coronary artery disease invo lving [place] coronary artery of [place] heart without angina pectoris 09/23/2012 Hx of [...] Tobacco: Never Tobacco Cessation:Counseling Given: Not Answered [facility] Utilities Answer Date Recorded In the past 12 months has e [facility], gas, oil, or water [employer] threatened to shut off services in your [...] week 12/04/2023 How often do you attend protestant or nondenominational serv ices? 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 Gender Identity Female 02/07/2021 4:33 [...] on file Medical Devices Implanted Type Area Brick Baker Device Identifier Shelf Expiration Date Model / Serial / Lot Rt Total Knee Arthroplasty Right: Knee Cataract-Lens Implant Eye [employer] Viabil 10 Mm X 4cm Shortwire [id number] - [id number] - [id number] Implanted:Qty: 1 on 11/26/2023 by Heydi Fenton MD at [facility] [employer] 06/01/2026 [id number] / [id number] / Procedures Procedure Name Priority Date/Time Associated Diagnosis Comments HEPATITIS PANEL, ACUTE STAT 11/24/2023 12:01 PM CDT from Last 3 Months or Most Recently Relevant to Health Maintenance Results * Hepatitis panel, acute Blood (11/24/2023 12:01 PM CDT) Hep A IgM Nonreactive Nonreactive Hep B core IgM Nonreactive Nonreactive [facility] Hep C Ab Nonreactive Nonreactive [facility] Comment:Antibodies to HCV no t detected. Does NOT exclude the possibility of recent exposure to HCV. Current interpretive data was last revised on 22 HepBsAg Nonreactive Nonreactive [facility] Blood 11/24/2023 12:0 1 PM CDT 11/24/2023 12:20 PM CDT Kassidy Cunningham MD LAB MICROBIOLOGY - G ENERAL ORDERABLES Final Result [facility] [place] [address] from Last 3 Months or Most Recently Relevant to Health Maintenance Insurance [facility] Advance Directives For more information, please contact: [phone] * Full Code (Latest Code Status on File) Date Activated Date Inactivated Comments 01/12/2024 9:55 AM 01/12/2024 3:53 PM * Full Code Date Activated Date Inactivated Comments 11/26/2023 1:02 PM 12/03/2023 7:36 PM * Full Code Date Activated Date Inactivated Comments 11/25/2023 6:29 PM 11/26/2023 1:02 PM * Full Code Date Activated Date Inactivated Comments 02/17/2023 5:25 PM 03/21/2023 7:10 PM Care Teams Supplier Development Manager Relationship Specialty Start Date End Date Cristian Ling MD [address] [place] [address] PCP - General 10/16/16
--- OUTSIDE RECORDS SUMMARY | 2025-01-06 17:46 | XMS_ITS ---
Author Name Auto Generated, Auto Generated Organization [facility] Address [address] [place] [address] Phone [phone] Care Team Providers Care Slasher Tender Helper Name Role Phone Valentín Lares Unavailable [phone] Suraj Marin Unavailable [phone] Functional Status No Results Mental Status No [...] * Text: * Atherosclerotic heart disease of [place] coronary artery without angina pectoris* Code: * [...] * End Date: * Text: * terminal gauger supervisor (current) use of anticoagulants* Code: * Start Date: FriMar 21 00:00:00 EDT 2022 * End Date: * Text: * terminal gauger supervisor (current) use of antithrombotics/antiplatelets* Code: * Start [...] * End Date: * Text: * terminal gauger supervisor (current) use of opiate analgesic* Code: * Start Date: FriApr 26 00:00:00 EST 2022 * End Date: * Text: * Polyneuropathy, unspecified* Code: * Start Date: FriApr 26 00:00:00 EST 2022 * End Date: * Text: Reason for Referral Past Medical History
--- OUTSIDE RECORDS SUMMARY | 2025-01-06 17:46 | XMS_ITS | Encounter Summary ---
Author Organization [facility] Address [address] [place] [address] Phone Care Team Providers Care Lime Supervisor Name Role Phone Cristian Ling MD Primary Care Prov ider Belinda Quigley FABRIC CUTTER Unavailable [phone] Encounter Details Date Type Department Care Team (Late st Contact Info) Description 01/10/2023 Telephone [facility] Cardiology [address] [facility] Advanced Medicine 8th [place] [address] [place] [address] Sami Stafford MD [address] [id number] Social History Tobacco Use Types Packs/Day Years [...] on file 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 difficile suspected 11/24/2023 11/25/202311/24 10:38 AM CDT COVID: Suspected 12/07/2023 12/07/2023 12/07/2023 5:54 PM CDT documented as of this encounter Care Teams Lime Supervisor Relationship Specialty Start Date End Date Cristian Ling MD [address] [place] [address] PCP - General 10/16/16 Belinda Quigley, SERG [address] [facility] ([facility] Mailstop [phone] [place] [address] [facility] 12/04/23 12/30/23 documented as of this encounter
--- OUTSIDE RECORDS SUMMARY | 2025-01-06 17:46 | XMS_ITS | Clinical Summary ---
Author Organization [facility] Address [address] [place] [address] Care Team Providers Care Catering Coordinator Name Role Phone Cristian Ling MD [...] Plan (12/01/2023 12:47 PM CDT): Follows with [facility] Hematology. Anemia thought to be due to iron deficiency as well as CKD stage IIIb. Received iron infusion in 09/2023. On admission hgb 8.4 (bl 7- 9). Iron 72, ferritin 1715. - Stable H/H, last 8.5 NSVT (nonsustained ventricular tachycardia) 11/2023 A-fib 02/17/2023 Assessment & Plan (12/01/2023 12:47 PM CDT): Follows with [facility] Cardiology. History of afib with [...] hypertension 11/06/2012 Coronary artery disease invo lving [place] coronary artery of [place] heart without angina pectoris 09/23/2012 Hx of CABG 09/23/2012 Assessment & Plan (11/29/2023 1:03 PM CDT): - continue home metoprolol XL 25mg daily - continue home atorvastatin 80mg daily - continue home zetia Immunizations Immunization Administration Dates Next Due Moderna SARS-CoV-2 Monovalent Vaccination (12+ Y RS) 09/06/2020,08/09/2020 Surgical History Surgery Date Site/Laterality Comments CORONARY ARTERY BYPASS GRAFT 06/16/2012 - 06/15/2013 Double by-pass - [facility] COLON SURGERY 06/16/1992 - 06/15/1993 Repair burst colon MICRODISCECTOMY 06/16/1998 - 06/15/1999 Dr. James ([place], [place]) TOTAL KNEE ARTHROPLASTY 06/16/2017 - 06/15/2018 Right FLUORO GUIDED INJECTION HIP RIGHT 05/16/2022 Right FLUORO GUIDED INJECTION HIP RIGHT 08/15/2022 Right FLUORO GUIDED INJECTION HIP RIGHT 12/10/2022 Right CARDIOVERSION 03/16/2023 - 04/15/2023 FLUORO GUIDED INJECTION HIP RIGHT 05/13/2023 Right FLUORO GUIDED INJECTION HIP RIGHT 03/17/2024 Right Medical History Medical History Date Comments Vertigo History of [place] (myocardial infarction) 2012 Heart murmur High cholesterol [...] Tobacco: Never Tobacco Cessation:Counseling Given: Not Answered [facility] Utilities Answer Date Recorded In the past 12 months has e [employer] gas, oil, or water [employer] threatened to shut off services in your [...] How often do you attend scientology or druze serv ices? 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 Gender Identity Female 02/07/2021 4:33 PM [...] Completed 11/24/2023 Medical Devices Implanted Type Area Teller Device Identifier Shelf Expiration Date Model / Serial / Lot Rt Total Knee Arthroplasty Right: Knee Cataract-Lens Implant Eye [employer] Viabil 10 Mm X 4cm Shortwire [id number] - [id number] - [id number] Implanted:Qty: 1 on 11/26/2023 by Heydi Fenton MD at [facility] [employer] 06/01/2026 [id number] / [id number] / Procedures Procedure Name Priority Date/Time Associated [...] on 22 HepBsAg Nonreactive Nonreactive [facility] Blood 11/24/2023 12:0 1 PM CDT 11/24/2023 12:20 PM CDT Kassidy Cunningham MD LAB MICROBIOLOGY - G ENERAL ORDERABLES Final Result [facility] Department [place] [address] from Last 3 Months or Most Recently Relevant to Health Maintenance Insurance [facility] IDPA [facility] Advance Directives For more information, please contact: [phone] * Full Code (Latest Code Status on File) Date Activated Date Inactivated Comments 01/12/2024 9:55 AM 01/12/2024 3:53 PM * Full Code Date Activated Date Inactivated Comments 11/26/2023 1:02 PM 12/03/2023 7:36 PM * Full Code Date Activated Date Inactivated Comments 11/25/2023 6:29 PM 11/26/2023 1:02 PM * Full Code Date Activated Date Inactivated Comments 02/17/2023 5:25 PM 03/21/2023 7:10 PM Care Teams Catering Coordinator Relationship Specialty Start Date End Date Cristian Ling MD [address] [place] [address] PCP - General 10/16/16
--- OUTSIDE RECORDS SUMMARY | 2025-01-06 17:46 | XMS_ITS ---
Author Name Auto Generated, Auto Generated Organization [facility] [employer] [facility] [facility] Address [address] [place] [address] Phone [phone] Care Team Providers Care Front Office Developer Name Role Phone Valentín Lares Unavailable [phone] Suraj Marin Unavailable [phone] Functional Status No Results Mental Status No [...] * Text: * Atherosclerotic heart disease of [place] coronary artery without angina pectoris* Code: * [...] 2022 * End Date: * Text: * salvage determiner (current) use of anticoagulants* Code: * Start Date: FriMar 21 00:00:00 EDT 2022 * End Date: * Text: * salvage determiner (current) use of antithrombotics/antiplatelets* Code: * Start Date: FriMar 21 00:00:00 EDT 2022 * End Date: * Text: * FDC (current) use of bisphosphonates* Code: * Start Date: FriMar 21 00:00:00 EDT 2022 * End Date: * Text: * Personal history of pulmonary embolism* Code: * Start Date: FriMar 21 00:00:00 EDT 2022 * End Date: * Text: * Personal history of (healed) traumatic fracture* Code: * Start Date: FriMar 21 00:00:00 EDT 2022 * End Date: * Text: * salvage determiner (current) use of opiate analgesic* Code: * Start Date: FriApr 26 00:00:00 EST 2022 * End Date: * Text: * Polyneuropathy, unspecified* Code: * Start Date: FriApr 26 00:00:00 EST 2022 * End Date: * Text: Reason for Referral Past Medical History
--- OUTSIDE RECORDS SUMMARY | 2025-01-06 17:47 | XMS_ITS ---
Author Name Auto Generated, Auto Generated Organization [employer] [facility] Address [address] [place] [address] Phone [phone] Care Team Providers Care Glazier Metal Furniture Name Role Phone Valentín Lares Unavailable [phone] Suraj Marin Unavailable [phone] Functional Status No Results Mental Status No [...] * Text: * Atherosclerotic heart disease of [place] coronary artery without angina pectoris* Code: * [...] * End Date: * Text: * terminal make up operator (current) use of anticoagulants* Code: * Start Date: FriMar 21 00:00:00 EDT 2022 * End Date: * Text: * terminal make up operator (current) use of antithrombotics/antiplatelets* Code: * Start Date: FriMar 21 00:00:00 EDT 2022 * End Date: * Text: * half-way (current) use of bisphosphonates* Code: * Start Date: FriMar 21 00:00:00 EDT 2022 * End Date: * Text: * Personal history of pulmonary embolism* Code: * Start Date: FriMar 21 00:00:00 EDT 2022 * End Date: * Text: * Personal history of (healed) traumatic fracture* Code: * Start Date: FriMar 21 00:00:00 EDT 2022 * End Date: * Text: * terminal make up operator (current) use of opiate analgesic* Code: * Start Date: FriApr 26 00:00:00 EST 2022 * End Date: * Text: * Polyneuropathy, unspecified* Code: * Start Date: FriApr 26 00:00:00 EST 2022 * End Date: * Text: Reason for Referral Past Medical History
--- OUTSIDE RECORDS SUMMARY | 2025-01-06 17:47 | XMS_ITS ---
Author Name Auto Generated, Auto Generated Organization [facility] [employer] [facility] Address [address] [place] [address] Phone [phone] Care Team Providers Care Oracle Hyperion Consultant Name Role Phone Valentín Lares Unavailable [phone] Suraj Marin Unavailable [phone] Functional Status No Results Mental Status No [...] * Text: * Atherosclerotic heart disease of [place] coronary artery without angina pectoris* Code: * [...] 2022 * End Date: * Text: * oysterman (current) use of anticoagulants* Code: * Start Date: FriMar 21 00:00:00 EDT 2022 * End Date: * Text: * oysterman (current) use of antithrombotics/antiplatelets* Code: * Start Date: FriMar 21 00:00:00 EDT 2022 * End Date: * Text: * snf (current) use of bisphosphonates* Code: * Start Date: FriMar 21 00:00:00 EDT 2022 * End Date: * Text: * Personal history of pulmonary embolism* Code: * Start Date: FriMar 21 00:00:00 EDT 2022 * End Date: * Text: * Personal history of (healed) traumatic fracture* Code: * Start Date: FriMar 21 00:00:00 EDT 2022 * End Date: * Text: * oysterman (current) use of opiate analgesic* Code: * Start Date: FriApr 26 00:00:00 EST 2022 * End Date: * Text: * Polyneuropathy, unspecified* Code: * Start Date: FriApr 26 00:00:00 EST 2022 * End Date: * Text: Reason for Referral Past Medical History
--- NOTE | 2025-01-06 18:58 | ADMGEN ---
This patient, Tiera Lobato, was admitted to IMU Room 201-01. Patient/family oriented to hospital policies and general routines including ID bracelet, bed and alarms, visiting hours, pain management, procedures, bathroom and other care routines, personal items, smoking policy, room service/diet, and visiting hours. Information on how to activate the Rapid Response Team has been discussed. Patient/Family are encouraged to report perceived risks to care and to ask questions if they do not understand what they are told or what they should do.
--- NOTE | 2025-01-06 21:13 | ECG_ITS ---
Test Date: 2025-01-06 22:04:54 Measurements Intervals [place]ress Rate: 77 P: 60 TX: 175 QRS: 0 QRSD: 109 T: 150 QT: 306 QTc: 348 Interpretive Statements SINUS RHYTHM LEFT VENTRICULAR HYPERTROPHY AND ST CHANGES WARNING: DATA QUALITY MAY AFFECT INTERPRETATION Compared to ECG 08/10/2024 13:50:31 NO SIGNIFICANT CHANGES Electronically Signed On 01-08-2025 18:25:00 CDT by Jeff Abraham M.D.
--- NOTE | 2025-01-06 21:27 | PM.IMHP ---
H&P: HPI History of Present Illness Date/Time: 01/06/25 21:27 Chief Complaint: Bloody diarrhea Narrative: A 79-year-old female with past medical history atrial fibrillation on Eliquis, CAD status post CABG, GERD, hyperlipidemia, lumbar spinal stenosis, osteoporosis, chronic anemia, CKD. She presents to [facility] ER on 01/06/2025 with the complaint of diarrhea since 01/01/2025. She has not had this issue before. She typically has constipation and takes a stool softener at night and MiraLax in the morning. She has not taken additional doses. She also takes about 1 diclofenac pill per day for arthritic pain in her right leg. She has been taking her Eliquis and all other medications. She has had endoscopy and colonoscopy many years ago and self reports there have been no major abnormal findings. She describes the diarrhea as loose mixed with blood and sometimes fiber/clot. On some days she has 1 episode and some day she has 4. She lives alone in assisted living at [facility]. No one she knows has had similar issues. She has not traveled recently. She has had some dry heaving but no vomiting. No fever. No abdominal pain otherwise. No chest pain or shortness of breath. Hemoglobin 9.5. She averages around this for her baseline. INR 1.9. Serum creatinine 2.16. Previous baseline between 1.1 and 1.8. CTA abdomen pelvis performed. No active extravasation. Colon is distended with fluid otherwise unremarkable. She was given 1 L normal saline bolus, Protonix 80 mg IV x1. Review of Systems Review of Systems: All systems reviewed & are unremarkable except as noted in HPI and below (HPI) [facility] Past Medical History Medical History UTI (urinary tract infection) Old myocardial infarction (~2012) Peripheral vascular disease, unspecified Pancreatic cyst Hypertrophic cardiomyopathy Apical variant noted on cardiac MRI 08/22/2022 Coronary artery disease Aortic atherosclerosis (~2006) Acute pancreatitis (03/2022) Choledocholithiasis Status post ERCP with post ERCP pancreatitis at [place] 12/03/2023 Acute hepatitis (11/15/23) Due to medications verses choledocholithiasis Chronic kidney disease Stage III A Chronic anemia Paroxysmal atrial fibrillation History of cardioversion in January 2023 Deep venous thrombosis 1960s Intra-articular fracture of distal end of right radius with volar angulation Close reduction January 2023 Benign positional vertigo Diverticulitis With history of perforation Chronic lower back pain Osteoporosis Hyperlipidemia Cardiorenal syndrome with renal failure Lumbar spinal stenosis Compression fracture of thoracic spine, non-traumatic (2017) T11 Gastro-esophageal reflux disease without esophagitis Occlusion and stenosis of bilateral carotid arteries Chronic idiopathic constipation Surgical History Surgical History History of cataract extraction with lens replacement History of coronary artery bypass graft x 2 (2012) LAWSON to LAD and saphenous vein graft to obtuse marginal History of bowel resection (1992) Due to prior bowel perforation History of cholecystectomy History of total right knee replacement (2017) History of lumbar surgery (1998) Lumbar diskectomy Family History Family History Father Malignant neoplasm of prostate Mother Alzheimer's dementia Sibling Alzheimer's dementia Social History Social History Social History: Surrogate medical decision maker: Storm Lobato, son. Code status: Full code. Smoking status: Never smoker Second hand tobacco smoke exposure: Yes Alcohol intake: never Substance use: never Substance use type: painkillers Do You Feel Safe in your Home?: Yes Lack of Transportation: No Lack of Food: Never True Current Housing: I Have Housing Concerned About Future Housing: No Difficulty Paying Gas/Electric Bills: No Difficulty Paying for Meds: No Currently Unemployed: No Education: High School Diploma/GED Difficulty w/ Childcare or Family Care: No Living arrangements: assisted living Additional living arrangements comments: . She has 3 sons. Ambulates with a walker. Spiritual care concerns: Yes Agree to blood products: Yes Meds Home Medications and Allergies Home Medications ?Medication ?Instructions ?Recorded ?Confirmed ?Type alendronate 70 mg tablet 70 mg PO WEEKLY #13 tabs 11/07/22 01/06/25 Rx ezetimibe 10 mg tablet 10 mg PO DAILY #30 tabs 11/14/22 01/06/25 Rx amiodarone 200 mg tablet 200 mg PO DAILY 04/15/23 01/06/25 History atorvastatin 80 mg tablet 80 mg PO HS 04/15/23 01/06/25 History bisacodyl 10 mg rectal suppository 10 mg RECTAL DAILY PRN Constipation 04/15/23 01/06/25 History (Dulcolax (bisacodyl)) calcium 500 mg (as 1 tablet PO DAILY 04/15/23 01/06/25 History carbonate)-vitamin D3 5 mcg (200 unit) tablet (Oyster Shell Calcium-Vitamin D3) pantoprazole 40 mg tablet,delayed 40 mg PO QAM 04/15/23 01/06/25 History release sertraline 50 mg tablet 50 mg PO DAILY 04/15/23 01/06/25 History apixaban 5 mg tablet (Eliquis) 5 mg PO Q12HR #60 tabs 04/26/23 01/06/25 Rx midodrine 2.5 mg tablet 5 mg (2 x 2.5 mg) PO TID #90 tabs 04/26/23 01/06/25 Rx linaclotide 145 mcg capsule 145 mcg PO DAILY PRN Constipation 07/31/23 01/06/25 Rx (Linzess) #90 caps metoprolol succinate 25 mg 25 mg PO DAILY 06/05/24 01/06/25 History tablet,extended release 24 hr ondansetron 4 mg disintegrating 4 mg PO Q8H PRN nausea and vomiting 06/05/24 01/06/25 History tablet gabapentin 100 mg capsule 200 mg PO TID 08/10/24 01/06/25 History cyanocobalamin (vitamin B-12) 1,000 mcg PO QAM #30 tabs 08/13/24 01/06/25 Rx 1,000 mcg tablet (Vitamin B-12) acetaminophen 500 mg capsule 1,000 mg (2 x 500 mg) PO Q4H PRN 09/06/24 01/06/25 Rx (Mapap (acetaminophen)) pain #100 caps polyethylene glycol 3350 17 gram 25.5 g PO QAM #45 ea 09/23/24 01/06/25 Rx oral powder packet (Miralax) hydrocodone 5 mg-acetaminophen 325 1 tablet PO Q6H PRN Pain Rated 10/15/24 01/06/25 Rx mg tablet 4-10 #30 tabs diclofenac sodium 1 % topical gel 2 g topical TID #300 grams 11/04/24 01/06/25 Rx diclofenac sodium 75 mg 75 mg PO BID #60 tabs 11/08/24 01/06/25 Rx tablet,delayed release calcitonin (salmon) 200 1 spray intranasal (ALT) DAILY 11/16/24 01/06/25 Rx unit/actuation nasal spray #3.7 mL tizanidine 2 mg tablet See Rx Instructions .Route 12/02/24 01/06/25 Rx .COMPLEX #30 tabs Allergies Allergy/AdvReac Type Severity Reaction Status Date / Time codeine Allergy Unknown Anaphylaxis Verified 01/06/25 09:28 Latex, Natural Rubber Allergy Unknown SKIN Verified 01/06/25 09:28 IRRITATION nitroglycerin AdvReac Severe Hypotension Verified 01/06/25 09:28 tramadol AdvReac Mild Nausea and Verified 01/06/25 09:28 Vomiting, HEADACHE, DIZZINESS Vital Signs Vital Signs - 24 hr 01/06/25 09:39 01/06/25 12:41 01/06/25 13:00 Temperature 97.7 F Pulse Rate 71 77 68 Respiratory Rate 20 16 22 H Blood Pressure 140/70 161/82 H 129/90 Pulse Oximetry 98 99 98 Oxygen Delivery Room Air 01/06/25 13:30 01/06/25 17:29 01/06/25 18:29 Temperature Pulse Rate 66 76 82 Respiratory Rate 24 H 14 18 Blood Pressure 148/60 H 153/64 H 138/59 L Pulse Oximetry 100 100 100 Oxygen Delivery 01/06/25 18:54 01/06/25 20:04 Temperature 97.4 F L 99.0 F Pulse Rate 77 78 Respiratory Rate 18 16 Blood Pressure 162/59 H 149/56 H Pulse Oximetry 100 100 Oxygen Delivery Exam Const: General: comfortable and no acute distress Other: A&O x3 HENMT: Mouth: Yes moist mucous membranes Eyes: Pupils: Equal, round and reactive pupils present Neck: Neck: supple Resp: Effort & Inspection: normal respiratory effort Auscultation: clear to auscultation bilaterally Cardio: Rate: regular rate Rhythm: regular rhythm GI: Inspection: non-distended GI Palp: Yes Soft to palpation and No Tenderness to palpation present (GI) Auscultation: normal bowel sounds : General: Yes bladder normal to palpation Neuro: Motor exam (neuro): 5/5 motor strength present throughout Extrem: General: no edema H&P: Results Labs Labs: Short CBC 01/06/25 Range/Units 12:38 WBC 9.2 (4.5-10.0) K/mm3 Hgb 9.5 L (12.0-15.0) g/dL Hct 30.8 L (37.0-47.0) % Plt Count 335 D (150-375) k/mm3 BMP 01/06/25 12:38 Sodium 137 Potassium 4.4 Chloride 106 Carbon Dioxide 17 L BUN 55 H D Creatinine 2.16 H Glucose 111 H Calcium 10.1 Liver Function 01/06/25 Range/Units 12:38 Total Bilirubin 0.6 (0.2-1.3) mg/dL AST 37 H (14-36) U/L ALT 31 (6-35) U/L Alkaline Phosphatase 84 (38-126) U/L Albumin 4.1 (3.5-5.1) g/dL Urine 01/06/25 Range/Units 12:38 Urine Color Yellow (Yellow) Urine Appearance Clear (Clear) Urine pH 5.5 (5.0-9.0) Ur Specific [place] 1.019 (1.001-1.035) Urine Protein Trace (Negative) mg/dL Urine Glucose (UA) Negative (Negative) mg/dL Assessment and Plan Assessment and plan (1) Bloody diarrhea: Code(s): R19.7 - Diarrhea, unspecified Status: Acute (2) CLAUDIA (acute kidney injury): Code(s): N17.9 - Acute kidney failure, unspecified Status: Resolved Plan A 79-year-old female with past medical history atrial fibrillation on Eliquis, CAD status post CABG, GERD, hyperlipidemia, lumbar spinal stenosis, osteoporosis, chronic anemia, CKD. She presents to [facility] ER on 01/06/2025 with the complaint of diarrhea since 01/01/2025. She has not had this issue before. She typically has constipation and takes a stool softener at night and MiraLax in the morning. She has not taken additional doses. She also takes about 1 diclofenac pill per day for arthritic pain in her right leg. She has been taking her Eliquis and all other medications. She has had endoscopy and colonoscopy many years ago and self reports there have been no major abnormal findings. She describes the diarrhea as loose mixed with blood and sometimes fiber/clot. On some days she has 1 episode and some day she has 4. She lives alone in assisted living at [facility]. No one she knows has had similar issues. She has not traveled recently. She has had some dry heaving but no vomiting. No fever. No abdominal pain otherwise. No chest pain or shortness of breath. Hemoglobin 9.5. She averages around this for her baseline. INR 1.9. Serum creatinine 2.16. Previous baseline between 1.1 and 1.8. CTA abdomen pelvis performed. No active extravasation. Colon is distended with fluid otherwise unremarkable. She was given 1 L normal saline bolus, Protonix 80 mg IV x1. ----- Patient admitted on 01/06/2025 for further workup. GI consultation. Normal saline at 125 cc/hour. Continue Protonix 40 mg IV b.i.d.. Hold Eliquis. Clear liquid diet. Stool studies ordered. Repeat kidney function panel after fluid resuscitation. Bed rest with commode privileges. Ambulate with assistance. Continue telemetry given the patient's acuity and history of arrhythmia. SCDs. Hospitalist [facility] Advance Care Plan I have confirmed that the patient's Advanced Care Plan is present, code status is documented, or surrogate decision maker is listed in patient medical record.: Yes Medication Reconciliation I have utilized all available resources to obtain, update and review the patients current medications (includes all prescriptions, OTC, herbals, cannabis, and nutritional supplements).: Yes
[2025-01-06] MEDS: SODIUM CHLORIDE 0.9% IV 1,000 ML 125 ML IV CONT (22:08)
[2025-01-06 23:43] LABS: Hematocrit 26.7 % (37.0-47.0); Hemoglobin 8.0 g/dL (12.0-15.0)
[2025-01-07] VITALS (22 sets, daily range): BP systolic 108–155; BP diastolic 47–63; PULSE 67–147; RESP 16–18; TEMP 36.6–37.1; O2SAT 96–100; BMI 18.7
[2025-01-07 04:42] LABS: Hematocrit 27.0 % (37.0-47.0); Hemoglobin 8.3 g/dL (12.0-15.0); Immature Granulocyte Percent A 1.9 % (0-0.5); Lymphocytes Absolute Auto 1.43 K/mm3 (0.9-3.2); Mean Corpuscular HGB Conc 30.7 g/dl (32-36); Mean Corpuscular Hemoglobin 32.0 pg (26-34); Mean Corpuscular Volume 104.2 fl (80-100); Nucleated Red Blood Cells Absolute Auto 0.000 K/mm3 (0.0-0.012); Nucleated Red Blood Cells Perc 0.0 % (0.0-0.2); Platelet Count Result 276 k/mm3 (150-375); Red Blood Count 2.59 M/mm3 (4.2-5.4); White Blood Count 6.2 K/mm3 (4.5-10.0)
[2025-01-07 05:03] LABS: Alanine Aminotransferase 31 U/L (6-35); Albumin Level 3.3 g/dL (3.5-5.1); Alkaline Phosphatase 74 U/L (38-126); Aspartate Amino Transferase 45 U/L (14-36); Bilirubin,Total 0.5 mg/dL (0.2-1.3); Blood Urea Nitrogen 29 mg/dL (7-17); Carbon Dioxide 14 mmol/L (22-30); Estimated CRCL calculation 26 ml/min; Estimated Glomerular Filt Rate 39; Magnesium 2.0 mg/dL (1.6-2.3); Sodium 135 mmol/L (137-145); Total Protein 6.5 g/dL (6.3-8.2)
[2025-01-07 05:18] LABS: Anion Gap 8 mmol/L (4-12); Calcium 9.0 mg/dL (8.4-10.2); Chloride 113 mmol/L (98-107); Glucose 77 mg/dL (65-110); Potassium 4.3 mmol/L (3.4-5.0)
[2025-01-07] MEDS: SODIUM CHLORIDE 0.9% IV 1,000 ML 125 ML IV CONT (05:37)
[2025-01-07] MEDS: ACETAMINOPHEN 325 MG TABLET 650 MG PO ×2 (05:37→20:27)
--- NOTE | 2025-01-07 07:58 | WPDGICN ---
Assessment and Plan Assessment and plan (1) Diarrhea: Qualifiers: Diarrhea type: presumed infectious Qualified Code(s): R19.7 - Diarrhea, unspecified Code(s): R19.7 - Diarrhea, unspecified Status: Acute (2) Hematochezia: Code(s): K92.1 - Melena Status: Acute (3) Constipation: Qualifiers: Constipation type: chronic idiopathic constipation Qualified Code(s): K59.04 - Chronic idiopathic constipation Code(s): K59.00 - Constipation, unspecified Status: Acute (4) Acute on chronic anemia: Code(s): D64.9 - Anemia, unspecified Status: Acute (5) Macrocytosis: Code(s): D75.89 - Other specified diseases of blood and blood-forming organs Status: Acute (6) Iron deficiency: Code(s): E61.1 - Iron deficiency Status: Acute (7) GERD (gastroesophageal reflux disease): Qualifiers: Esophagitis presence: without esophagitis Qualified Code(s): K21.9 - Gastro-esophageal reflux disease without esophagitis Code(s): K21.9 - Gastro-esophageal reflux disease without esophagitis Status: Acute (8) Decreased appetite: Code(s): R63.0 - Anorexia Status: Acute (9) Weight loss: Code(s): R63.4 - Abnormal weight loss Status: Acute Plan 1. Diarrhea/hematochezia/Hx of chronic constipation/decreased appetite/weight loss: Last colonoscopy 04/21/2023 with diverticulosis and internal hemorrhoids. Patient presented to the ER yesterday with complaints of diarrhea x 10 days with rectal bleeding. WBC's normal. CTA this admission shows the colon distended with fluid but imaging o/w normal with no signs of inflammation. Patient normally has chronic constipation and had been on PRN Linzess 145 mcg in the past but recently has been taking Miralax and stool softeners, which she stopped after diarrhea stared. Denies any possible triggers to diarrhea including recent illness, sick exposure, medication change, recent travel or recent ABX use. She admits to near constant liquid and urgent BM's over the past 10 days with painless rectal bleeding that is a large amount at times. Last BM today was small, liquid and contained blood. Denies abdominal pain. Admits to decreased appetite that has been worse with current illness but was also happening prior. Weight loss over the past month with weight decreasing from 128 lbs to 112 this admission. DDX: Acute infectious/inflammatory process versus IBD versus hemorrhoid versus polyp versus AVM versus neoplasm. Stool studies pending to r/o infectious etiology fecal calprotectin pending No indication for emergent colonoscopy at this time. Can consider outpatient endoscopic evaluation based on workup and persistent symptoms 2. Acute on chronic anemia/macrocytosis/B12 deficiency/iron deficiency: Patient with chronic anemia dating back to prior to 2021. Known CKD stage 3. Patient had an EGD and colonoscopy for anemia in 2022 and no findings noted to explain anemia. H/H decrease since admission unclear if dilutional, Hgb 10-->8, Hct 31-->27, MCV 104, platelets 267 and INR 1.4. Labs performed 08/12/2024 showed iron 31, TIBC 241, iron saturation 13%, ferritin 137, B12 < 159, folate 9.1. [employer] patient on B12 supplement but no iron supplement. She states that she had seen a nurse reviewer at [facility] a few years ago for her chronic anemia and monitoring was recommended. will recheck iron panel, B12 and folate. Primary care team to correct if deficient check Retic and erythropoietin given Hx of chronic anemia and kidney disease 3. GERD: EGD 04/21/2023 showed a small hiatal hernia but o/w normal. On Protonix 40 mg daily [employer] and reflux was well controlled Discontinue IV PPI and change to Protonix 40 mg daily PO Thank you very much for allowing me to share in the care of this very nice patient. This report may have been done utilizing a voice recognition system. Attempts have been made to correct errors. However, there may be uncorrected grammatical, spelling, and recognition errors present. GI Consult Note Consult date/time: 01/07/25 07:58 Reason for consult: Diarrhea and hematochezia HPI: Tiera Lobato is a very pleasant 79 year old female with PMSH of AFib on Eliquis, history of NE, CABG, CKD stage 3, bowel resection in 1992, cholecystectomy, chronic anemia, history of DVT, BPV, HLD, GERD, chronic constipation, PVD, pancreatic cyst, coronary artery disease and hypertrophic cardiomyopathy. She presented to the emergency room yesterday with complaints of diarrhea times 10 days. GI has been consulted for diarrhea and bright red blood per rectum. Patient states that around 10 days ago she started having acute onset diarrhea with out any known triggers of infectious exposures. She normally has constipation ad was taking Miralax and stool softeners until diarrhea started. She was on Linzess 145 mcg as needed in the past. Admits to decreased appetite and weight loss. At the beginning of the month she states her weight was around 128 lbs and weight on admission 112 lbs. She is having near constant liquid stool with urgency. Any time she eats or drinks anything it goes right through her. Admits to a large amount of BRBPR without rectal pain prior to admission. Small liquid BM today with blood. Denies any abdominal pain, nausea, vomiting, or bloating. Does admit to occasional dry heaves. Denies odynophagia, dysphagia, reflux, regurgitation or early satiety. Denies constipation or melena. Denies any NSAID or aspirin use but was on Eliquis prior to admission. She is a nondrinker nonsmoker and denies marijuana use. Family history negative for CRC or IBD. ENDOSCOPY HISTORY: EGD: 04/21/[address] Christianson for anemia Findings: The esophagus was examined and the mucosa was normal with a normal Z-line and no ulcers or masses. No esophagitis no Estrella's A small hiatal hernia was found in the GE junction. The hiatal hernia. At a depth of 36 cm to 37 cm from the incisors The stomach at the body, cardia and fundus was examined was normal with no ulcers or masses. No gastritis. The bulb and 2nd portion of the duodenum was normal with no ulcers or masses COLONOSCOPY: 04/21/[address] Christianson for heme positive stools and anemia Findings: A few diverticula were present in the left colon that were not actively bleeding Colon was examined and was normal otherwise, no colitis, no AVMs no polyps A few medium-size internal hemorrhoids seen in the rectum that were not actively bleeding No repeat colonoscopy recommended LABS AND STOOL STUDIES: Labs 01/07/2025: Sodium 135, potassium 4.3, BUN 29, creatinine 1.31, GFR 39, calcium 9.0, magnesium 2.0 WBC 6, Hgb 8, Hct 27, MCV 104, platelets 276, INR 1.9 Total bilirubin 0.5, AST 45, ALT 31, Alkaline Phos 74, albumin 3.3, lipase 260 Labs 01/06/2025: Sodium 137, potassium 4.4, BUN 55, creatinine 2.16 WBC 9, Hgb 10, Hct 31, MCV 104, platelets 335 Total bilirubin 0.6, AST 37, ALT 31, Alkaline Phos 84 Labs 08/12/2024: Total iron 31, TIBC 241, iron sat 13%, ferritin 137 B12 < 159, folate 9.1, TSH 2.760 IMAGING: CTA abd/pelvis 01/06/2025: FINDINGS/OBSERVATIONS: Visualized lower thorax: Interstitial thickening is detected bilaterally. The heart is enlarged, without pericardial effusion. Liver: The liver enhances homogeneously and is not enlarged. Interval resolution of the intrahepatic pneumatosis within the liver, seen on previous Gallbladder and biliary system: The gallbladder is surgically absent. Pancreas: The pancreas enhances homogeneously without ductal dilatation. Spleen: Spleen demonstrates homogeneous enhancement, without enlargement. Kidneys: The bilateral kidneys are somewhat atrophic. Well circumscribed focus of fluid attenuation exophytic from the interpolar region of the left kidney, statistically a cyst. No hydronephrosis or renal calculi. Adrenal glands: Unremarkable. Gastrointestinal tract: No active extravasation is identified. The colon is distended with fluid, and otherwise unremarkable. Appendix: The appendix is not definitively visualized. However, no pericecal inflammatory change is identified suggest the presence of acute appendicitis. Vasculature: Densely calcified atherosclerotic disease. The celiac axis is patent, and demonstrates conventional branching anatomy. The superficial mesenteric artery is also patent. The inferior mesenteric artery is diminutive but patent. Lymph nodes: No pathologically enlarged or morphologically suspicious lymph nodes within the retroperitoneum or at the root of the mesentery. Pelvic structures: The bladder is only minimally distended and otherwise unremarkable. The uterus is retroverted and retroflexed. Body wall and musculoskeletal: Age-appropriate degenerative disease within the lower thoracic and lumbosacral spines. IMPRESSION: No active extravasation is identified within the colon to account for patient's presenting symptoms, as detailed above. CT abd/pelvis w/contrast 08/10/2024: IMPRESSION: Findings consistent with fecal impaction to the level of the sigmoid colon, likely the cause of patient's abdominal pain. No additional acute findings. Innumerable nonacute findings, as detailed above. Review of Systems Constitutional: Constitutional: Reports as per HPI ENT: Reports as per HPI Cardiovascular: Cardiovascular: Reports as per HPI, Denies chest pain and Denies dyspnea Respiratory: Respiratory: Denies cough and Denies dyspnea Gastrointestinal: Gastrointestinal: Reports as per HPI Musculoskeletal: Musculoskeletal: Reports as per HPI Integumentary/Breasts: Skin/Breast: Reports as per HPI Psychiatric: Psychiatric: Reports as per HPI Endocrine: Endocrine: Reports no additional endocrine complaints Hematologic/Lymphatic: Hematologic/Lymphatic: Reports no additional hematologic/lymphatic complaints [facility] Past Medical History Medical History UTI (urinary tract infection) Old myocardial infarction (~2012) Peripheral vascular disease, unspecified Pancreatic cyst Hypertrophic cardiomyopathy Apical variant noted on cardiac MRI 08/22/2022 Coronary artery disease Aortic atherosclerosis (~2006) Acute pancreatitis (03/2022) Choledocholithiasis Status post ERCP with post ERCP pancreatitis at [place] 12/03/2023 Acute hepatitis (11/15/23) Due to medications verses choledocholithiasis Chronic kidney disease Stage III A Chronic anemia Paroxysmal atrial fibrillation History of cardioversion in January 2023 Deep venous thrombosis 1960s Intra-articular fracture of distal end of right radius with volar angulation Close reduction January 2023 Benign positional vertigo Diverticulitis With history of perforation Chronic lower back pain Osteoporosis Hyperlipidemia Cardiorenal syndrome with renal failure Lumbar spinal stenosis Compression fracture of thoracic spine, non-traumatic (2017) T11 Gastro-esophageal reflux disease without esophagitis Occlusion and stenosis of bilateral carotid arteries Chronic idiopathic constipation Surgical History Surgical History History of cataract extraction with lens replacement History of coronary artery bypass graft x 2 (2012) LAWSON to LAD and saphenous vein graft to obtuse marginal History of bowel resection (1992) Due to prior bowel perforation History of cholecystectomy History of total right knee replacement (2017) History of lumbar surgery (1998) Lumbar diskectomy Family History Family History Father Malignant neoplasm of prostate Mother Alzheimer's dementia Sibling Alzheimer's dementia Social History Social History Social History: Surrogate medical decision maker: Storm Lobato, son. Code status: Full code. Smoking status: Never smoker Second hand tobacco smoke exposure: Yes Alcohol intake: never Substance use: never Substance use type: painkillers Do You Feel Safe in your Home?: Yes Lack of Transportation: No Lack of Food: Never True Current Housing: I Have Housing Concerned About Future Housing: No Difficulty Paying Gas/Electric Bills: No Difficulty Paying for Meds: No Currently Unemployed: No Education: High School Diploma/GED Difficulty w/ Childcare or Family Care: No Living arrangements: assisted living Additional living arrangements comments: . She has 3 sons. Ambulates with a walker. Spiritual care concerns: Yes Agree to blood products: Yes Meds Home Medications and Allergies Home Medications ?Medication ?Instructions ?Recorded ?Confirmed ?Type alendronate 70 mg tablet 70 mg PO WEEKLY #13 tabs 11/07/22 01/06/25 Rx ezetimibe 10 mg tablet 10 mg PO DAILY #30 tabs 11/14/22 01/06/25 Rx amiodarone 200 mg tablet 200 mg PO DAILY 04/15/23 01/06/25 History atorvastatin 80 mg tablet 80 mg PO HS 04/15/23 01/06/25 History bisacodyl 10 mg rectal suppository 10 mg RECTAL DAILY PRN Constipation 04/15/23 01/06/25 History (Dulcolax (bisacodyl)) calcium 500 mg (as 1 tablet PO DAILY 04/15/23 01/06/25 History carbonate)-vitamin D3 5 mcg (200 unit) tablet (Oyster Shell Calcium-Vitamin D3) pantoprazole 40 mg tablet,delayed 40 mg PO QAM 04/15/23 01/06/25 History release sertraline 50 mg tablet 50 mg PO DAILY 04/15/23 01/06/25 History apixaban 5 mg tablet (Eliquis) 5 mg PO Q12HR #60 tabs 04/26/23 01/06/25 Rx midodrine 2.5 mg tablet 5 mg (2 x 2.5 mg) PO TID #90 tabs 04/26/23 01/06/25 Rx linaclotide 145 mcg capsule 145 mcg PO DAILY PRN Constipation 07/31/23 01/06/25 Rx (Linzess) #90 caps metoprolol succinate 25 mg 25 mg PO DAILY 06/05/24 01/06/25 History tablet,extended release 24 hr ondansetron 4 mg disintegrating 4 mg PO Q8H PRN nausea and vomiting 06/05/24 01/06/25 History tablet gabapentin 100 mg capsule 200 mg PO TID 08/10/24 01/06/25 History cyanocobalamin (vitamin B-12) 1,000 mcg PO QAM #30 tabs 08/13/24 01/06/25 Rx 1,000 mcg tablet (Vitamin B-12) acetaminophen 500 mg capsule 1,000 mg (2 x 500 mg) PO Q4H PRN 09/06/24 01/06/25 Rx (Mapap (acetaminophen)) pain #100 caps polyethylene glycol 3350 17 gram 25.5 g PO QAM #45 ea 09/23/24 01/06/25 Rx oral powder packet (Miralax) hydrocodone 5 mg-acetaminophen 325 1 tablet PO Q6H PRN Pain Rated 10/15/24 01/06/25 Rx mg tablet 4-10 #30 tabs diclofenac sodium 1 % topical gel 2 g topical TID #300 grams 11/04/24 01/06/25 Rx diclofenac sodium 75 mg 75 mg PO BID #60 tabs 11/08/24 01/06/25 Rx tablet,delayed release calcitonin (salmon) 200 1 spray intranasal (ALT) DAILY 11/16/24 01/06/25 Rx unit/actuation nasal spray #3.7 mL tizanidine 2 mg tablet See Rx Instructions .Route 12/02/24 01/06/25 Rx .COMPLEX #30 tabs Allergies Allergy/AdvReac Type Severity Reaction Status Date / Time codeine Allergy Unknown Anaphylaxis Verified 01/06/25 09:28 Latex, Natural Rubber Allergy Unknown SKIN Verified 01/06/25 09:28 IRRITATION nitroglycerin AdvReac Severe Hypotension Verified 01/06/25 09:28 tramadol AdvReac Mild Nausea and Verified 01/06/25 09:28 Vomiting, HEADACHE, DIZZINESS Vital Signs Vital Signs - 24 hr 01/06/25 09:39 01/06/25 12:41 01/06/25 13:00 Temperature 97.7 F Pulse Rate 71 77 68 Respiratory Rate 20 16 22 H Blood Pressure 140/70 161/82 H 129/90 Pulse Oximetry 98 99 98 Oxygen Delivery Room Air 01/06/25 13:30 01/06/25 17:29 01/06/25 18:29 Temperature Pulse Rate 66 76 82 Respiratory Rate 24 H 14 18 Blood Pressure 148/60 H 153/64 H 138/59 L Pulse Oximetry 100 100 100 Oxygen Delivery 01/06/25 18:54 01/06/25 20:00 01/06/25 20:00 Temperature 97.4 F L Pulse Rate 77 79 Respiratory Rate 18 Blood Pressure 162/59 H Pulse Oximetry 100 100 Oxygen Delivery Room Air 01/06/25 20:04 01/06/25 22:00 01/06/25 23:53 Temperature 99.0 F 98.5 F Pulse Rate 78 77 78 Respiratory Rate 16 16 Blood Pressure 149/56 H 129/55 L Pulse Oximetry 100 98 Oxygen Delivery 01/06/25 23:56 01/07/25 00:00 01/07/25 02:00 Temperature Pulse Rate 79 75 Respiratory Rate Blood Pressure Pulse Oximetry 98 Oxygen Delivery Room Air 01/07/25 04:00 01/07/25 04:00 01/07/25 04:06 Temperature 98.0 F Pulse Rate 88 85 Respiratory Rate 16 Blood Pressure 152/62 H Pulse Oximetry 99 99 Oxygen Delivery Room Air 01/07/25 06:00 01/07/25 07:56 Temperature 97.9 F Pulse Rate 80 76 Respiratory Rate 16 Blood Pressure 155/63 H Pulse Oximetry 98 Oxygen Delivery Exam Const: General: cooperative, healthy appearing, comfortable, no acute distress and well developed Orientation/consciousness: oriented to person, oriented to place, oriented to time and patient oriented x3 HENMT: Head: normal to inspection, normocephalic and atraumatic Mouth: Yes Normal oral and palatal mucosa present and Yes moist mucous membranes Eyes: General: appearance normal, both eyes and all related structures Conjunctivae: conjunctivae normal Sclera: sclerae normal Pupils: Equal, round and reactive pupils present Neck: Neck: normal visual inspection Chest: Chest palpation & inspection: normal inspection of the chest Resp: Effort & Inspection: normal respiratory effort and able to speak in complete sentences Auscultation: clear to auscultation bilaterally Cardio: Jugular venous distension: no JVD Rate: regular rate Rhythm: regular rhythm Heart sounds: S1 normal heart sound present and S2 normal heart sound present GI: Inspection: normal to inspection GI Palp: Yes Soft to palpation and Yes No hepatosplenomegaly present Auscultation: normal bowel sounds Rectal Exam: deferred Skin: General skin exam: normal color and no rashes or lesions noted Neuro: General: oriented to person, oriented to place, oriented to time and patient oriented x3 Cranial nerves: Yes Equal, round and reactive pupils present Speech: normal speech Extrem: General: normal to inspection and no clubbing, cyanosis or edema Psych: Appearance: grossly normal and well kempt Affect: normal affect Results Labs 01/07/25 04:04 01/07/25 04:04 Labs: Short CBC 01/06/25 01/06/25 01/07/25 Range/Units 12:38 23:38 04:04 WBC 9.2 6.2 (4.5-10.0) K/mm3 Hgb 9.5 L 8.0 L 8.3 L (12.0-15.0) g/dL Hct 30.8 L 26.7 L 27.0 L (37.0-47.0) % Plt Count 335 D 276 (150-375) k/mm3 BMP 01/06/25 01/07/25 12:38 04:04 Sodium 137 135 L Potassium 4.4 4.3 Chloride 106 113 H Carbon Dioxide 17 L 14 L BUN 55 H D 29 H D Creatinine 2.16 H 1.31 H Glucose 111 H 77 Calcium 10.1 9.0 Liver Function 01/06/25 01/07/25 Range/Units 12:38 04:04 Total Bilirubin 0.6 0.5 (0.2-1.3) mg/dL AST 37 H 45 H (14-36) U/L ALT 31 31 (6-35) U/L Alkaline Phosphatase 84 74 (38-126) U/L Albumin 4.1 3.3 L (3.5-5.1) g/dL Urine 01/06/25 Range/Units 12:38 Urine Color Yellow (Yellow) Urine Appearance Clear (Clear) Urine pH 5.5 (5.0-9.0) Ur Specific [place] 1.019 (1.001-1.035) Urine Protein Trace (Negative) mg/dL Urine Glucose (UA) Negative (Negative) mg/dL
[2025-01-07] MEDS: AMIODARONE HCL 200 MG TABLET PO (08:05)
[2025-01-07] MEDS: GABAPENTIN 100 MG CAPSULE 200 MG PO ×3 (08:05→17:55)
[2025-01-07] MEDS: SERTRALINE HCL 50 MG TABLET PO (08:06)
[2025-01-07] MEDS: PANTOPRAZOLE SODIUM IV 40 MG VIAL IV PUSH (08:06)
[2025-01-07 09:03] LABS: Immature Reticulocyte Fraction 18.6 % (3.0-15.9); Reticulocyte Hemoglobin Conten 30.8 pg (28.2-36.6); Reticulocytes Absolute 0.02 10^6/uL (0.02-0.10)
[2025-01-07 09:50] LABS: Iron 82 ug/dL (37-170)
[2025-01-07 09:59] LABS: Percent Iron Saturation 36 % (20-50)
--- NOTE | 2025-01-07 10:04 | PM.IMPN ---
Progress Note: A&P Assessment and Plan (1) Bloody diarrhea: Code(s): R19.7 - Diarrhea, unspecified Status: Acute (2) CLAUDIA (acute kidney injury): Code(s): N17.9 - Acute kidney failure, unspecified Status: Resolved Plan A 79-year-old female with past medical history atrial fibrillation on Eliquis, CAD status post CABG, GERD, hyperlipidemia, lumbar spinal stenosis, osteoporosis, chronic anemia, CKD. She presents to [facility] ER on 01/06/2025 with the complaint of diarrhea since 01/01/2025. She has not had this issue before. She typically has constipation and takes a stool softener at night and MiraLax in the morning. She has not taken additional doses. She also takes about 1 diclofenac pill per day for arthritic pain in her right leg. She has been taking her Eliquis and all other medications. She has had endoscopy and colonoscopy many years ago and self reports there have been no major abnormal findings. She describes the diarrhea as loose mixed with blood and sometimes fiber/clot. On some days she has 1 episode and some day she has 4. She lives alone in assisted living at [place]. No one she knows has had similar issues. She has not traveled recently. She has had some dry heaving but no vomiting. No fever. No abdominal pain otherwise. No chest pain or shortness of breath. Hemoglobin 9.5. She averages around this for her baseline. INR 1.9. Serum creatinine 2.16. Previous baseline between 1.1 and 1.8. CTA abdomen pelvis performed. No active extravasation. Colon is distended with fluid otherwise unremarkable. She was given 1 L normal saline bolus, Protonix 80 mg IV x1. ----- Bloody diarrhea history suggestive of ischemic colitis. Rule out infectious etiology. Stool studies. GI consulted. Continue IV fluid resuscitation. Ppi b.i.d.. Hold Eliquis. CLAUDIA with creatinine up to 2.1. Likely hypovolemia related. Improved with IV resuscitation. Acute on chronic anemia with blood loss. Continue to monitor transfuse to keep hemoglobin more than 7 Coronary artery disease status post CABG Atrial fibrillation on Eliquis and amiodarone and midodrine GERD Hyperlipidemia Lumbar spinal stenosis Osteoporosis Colonic diverticulosis History of hemorrhoids DVT prophylaxis SCDs Code status full code Subjective Date/time seen: 01/07/25 10:04 Interval history: Feels okay. No dizziness or lightheadedness. Labs reviewed. Still having blood in stool. Review of Systems Review of Systems: All systems reviewed & are unremarkable except as noted in HPI and below Exam Narrative: Constitutional: Generally well appearing, no acute distress Head: Atraumatic, no deformities. Eyes: Pupils equal, round, and reactive to light. Neck: Supple, no tracheal deviation, no JVD. ENMT: Mucous membranes moist Cardiovascular: S1, S2 auscultated. No murmurs, rubs, or gallops. No S3/S4. Normal Distal pulses. No peripheral edema. Respiratory: Lung sounds equal. No wheezes, rales, or rhonchi. Gastrointestinal: Abdomen was soft and non-tender. Non-distended. No rebound or guarding. Genitourinary: Deferred Musculoskeletal: Normal muscle tone and bulk. No obvious deformities or tenderness over extremities. Skin: No rashes. Neurological: Strength 5/5 in extremities. Cranial nerves I-XII grossly intact. Distal sensation intact. Mental Status: Awake, alert and oriented x3. Follows commands Objective Data Vital Signs Vital Signs: Vital Signs - 24 hr 01/06/25 12:41 01/06/25 13:00 01/06/25 13:30 Temperature Pulse Rate 77 68 66 Respiratory Rate 16 22 H 24 H Blood Pressure 161/82 H 129/90 148/60 H Pulse Oximetry 99 98 100 Oxygen Delivery Room Air 01/06/25 17:29 01/06/25 18:29 01/06/25 18:54 Temperature 97.4 F L Pulse Rate 76 82 77 Respiratory Rate 14 18 18 Blood Pressure 153/64 H 138/59 L 162/59 H Pulse Oximetry 100 100 100 Oxygen Delivery 01/06/25 20:00 01/06/25 20:00 01/06/25 20:04 Temperature 99.0 F Pulse Rate 79 78 Respiratory Rate 16 Blood Pressure 149/56 H Pulse Oximetry 100 100 Oxygen Delivery Room Air 01/06/25 22:00 01/06/25 23:53 01/06/25 23:56 Temperature 98.5 F Pulse Rate 77 78 Respiratory Rate 16 Blood Pressure 129/55 L Pulse Oximetry 98 98 Oxygen Delivery Room Air 01/07/25 00:00 01/07/25 02:00 01/07/25 04:00 Temperature Pulse Rate 79 75 Respiratory Rate Blood Pressure Pulse Oximetry 99 Oxygen Delivery Room Air 01/07/25 04:00 01/07/25 04:06 01/07/25 06:00 Temperature 98.0 F Pulse Rate 88 85 80 Respiratory Rate 16 Blood Pressure 152/62 H Pulse Oximetry 99 Oxygen Delivery 01/07/25 07:56 01/07/25 08:00 01/07/25 08:05 Temperature 97.9 F Pulse Rate 76 77 74 Respiratory Rate 16 Blood Pressure 155/63 H Pulse Oximetry 98 Oxygen Delivery Intake/Output Intake/Output: Intake & Output 01/04/25 01/05/25 01/06/25 01/07/25 23:59 23:59 23:59 23:59 Intake Total 1000 1835.4 Output Total 701 Balance 1000 1134.4 Meds/Results Medications: Active Medications Generic Name Dose Route Start Last Admin Trade Name Freq PRN Reason Stop Dose Admin Acetaminophen 650 mg 01/07/25 05:32 01/07/25 05:37 Acetaminophen 325 Mg Tablet PO 650 mg Q4H PRN Administration Headache Amiodarone HCl 200 mg 01/07/25 09:00 01/07/25 08:05 Amiodarone Hcl 200 Mg Tablet PO 200 mg DAILY AGUS Administration Atorvastatin Calcium 80 mg 01/07/25 21:00 Atorvastatin 40 Mg Tablet PO HS [facility] Diclofenac Sodium 1 applic 01/07/25 09:00 01/07/25 08:10 Diclofenac Sodium 1% 100 Gm Gel (*Bkc) TOPICAL Not Given TID AGUS Gabapentin 200 mg 01/07/25 09:00 01/07/25 08:05 Gabapentin 100 Mg Capsule PO 200 mg TID AGUS Administration Sodium Chloride 1,000 mls @ 125 mls/hr 01/06/25 17:15 01/07/25 05:37 Normal Saline Iv IV CONT 125 mls/hr .Q8H AGUS Administration Pantoprazole Sodium 40 mg 01/07/25 09:00 Pantoprazole 40 Mg Tablet PO QAM AGUS Sertraline HCl 50 mg 01/07/25 09:00 01/07/25 08:06 Sertraline Hcl 50 Mg Tablet PO 50 mg DAILY AGUS Administration Radiology Results: ITS Impressions Abdomen/Pelvis CTA 01/06/25 14:11 IMPRESSION: No active extravasation is identified within the colon to account for patient's presenting symptoms, as detailed above. Labs Labs: Laboratory Results - last 24 hr 01/06/25 01/06/25 01/07/25 12:38 23:38 04:04 WBC 9.2 6.2 RBC 3.00 L 2.59 L Hgb 9.5 L 8.0 L 8.3 L Hct 30.8 L 26.7 L 27.0 L MCV 102.7 H 104.2 H MCH 31.7 32.0 MCHC 30.8 L 30.7 L RDW 13.2 13.2 Plt Count 335 D 276 MPV 10.5 H 10.7 H Immature Gran % (Auto) 1.2 H 1.9 H Neut % (Auto) 78.1 H 68.1 Lymph % (Auto) 15.3 L 22.9 [place] % (Auto) 4.7 5.9 Eos % (Auto) 0.4 0.6 Baso % (Auto) 0.3 0.6 Lymph # (Auto) 1.40 1.43 [place] # (Auto) 0.4 0.4 Eos # (Auto) 0.0 0.0 Baso # (Auto) 0.0 0.0 Abs Immat Gran (auto) 0.11 H 0.12 H Absolute Neuts (auto) 7.2 H 4.2 Absolute Nucleated RBC 0.000 0.000 Nucleated RBC % 0.0 0.0 Absolute Retic Percent Retic Immature Retic Fraction Retic Hgb Content PT 20.9 H INR 1.9 APTT 60.5 H Sodium 137 135 L Potassium 4.4 4.3 Chloride 106 113 H Carbon Dioxide 17 L 14 L Anion Gap 14 H 8 BUN 55 H D 29 H D Creatinine 2.16 H 1.31 H Estim Creat Clear Calc 16 26 Estimated GFR 22 L 39 L Glucose 111 H 77 Calcium 10.1 9.0 Magnesium 2.0 Iron TIBC % Saturation Total Bilirubin 0.6 0.5 AST 37 H 45 H ALT 31 31 Alkaline Phosphatase 84 74 Total Protein 7.6 6.5 Albumin 4.1 3.3 L Lipase 260 Urine Color Yellow Urine Appearance Clear Urine pH 5.5 Ur Specific [place] 1.019 Urine Protein Trace Urine Glucose (UA) Negative Urine Ketones Trace H Ur Blood (Man) Negative Urine Nitrate Negative Urine Bilirubin Negative Urine Urobilinogen 0.2 Leukocyte Esterase Rfl Negative Urine RBC 0-2 Urine WBC 0-5 Ur Squamous Epith Cells None seen Urine Bacteria None seen Urine Casts 0-2 01/07/25 08:56 WBC RBC Hgb Hct MCV MCH MCHC RDW Plt Count MPV Immature Gran % (Auto) Neut % (Auto) Lymph % (Auto) [place] % (Auto) Eos % (Auto) Baso % (Auto) Lymph # (Auto) [place] # (Auto) Eos # (Auto) Baso # (Auto) Abs Immat Gran (auto) Absolute Neuts (auto) Absolute Nucleated RBC Nucleated RBC % Absolute Retic 0.02 Percent Retic 1.05 Immature Retic Fraction 18.6 H Retic Hgb Content 30.8 PT INR APTT Sodium Potassium Chloride Carbon Dioxide Anion Gap BUN Creatinine Estim Creat Clear Calc Estimated GFR Glucose Calcium Magnesium Iron 82 TIBC 226 L % Saturation 36 Total Bilirubin AST ALT Alkaline Phosphatase Total Protein Albumin Lipase Urine Color Urine Appearance Urine pH Ur Specific [place] Urine Protein Urine Glucose (UA) Urine Ketones Ur Blood (Man) Urine Nitrate Urine Bilirubin Urine Urobilinogen Leukocyte Esterase Rfl Urine RBC Urine WBC Ur Squamous Epith Cells Urine Bacteria Urine Casts
[2025-01-07 10:41] LABS: Vitamin B12 > 1000.0 pg/mL (239-931)
[2025-01-07] MEDS: SODIUM CHLORIDE 0.9% IV 1,000 ML 75 ML IV CONT (15:31)
--- NOTE | 2025-01-07 17:54 | ECG_ITS ---
Test Date: 2025-01-07 18:04:39 Measurements Intervals [place] Rate: 129 P: 0 AK: 0 QRS: -29 QRSD: 119 T: 136 QT: 343 QTc: 503 Interpretive Statements ATRIAL FIBRILLATION WITH RAPID VENTRICULAR RESPONSE BORDERLINE LEFT AXIS DEVIATION [QRS AXIS < -20] LEFT VENTRICULAR HYPERTROPHY AND ST-T CHANGE [VOLTAGE CRITERIA PLUS ST/T ABNORMALITY] Compared to ECG 01/07/2025 18:03:32 NO SIGNIFICANT CHANGES Electronically Signed On 01-08-2025 18:48:30 CDT by Jeff Abraham M.D.
--- NOTE | 2025-01-07 18:03 | ECG_ITS ---
Test Date: 2025-01-07 18:03:32 Measurements Intervals [place] Rate: 121 P: 0 [place]: 0 QRS: -28 QRSD: 116 T: 135 QT: 339 QTc: 483 Interpretive Statements ATRIAL FIBRILLATION WITH RAPID VENTRICULAR RESPONSE VOLTAGE CRITERIA FOR LVH [MEETS CRITERIA IN ONE OF: R(aVL), S(V1), R(V5), R(V5/V6)+S(V1)] AND ST CHANGES Compared to ECG 01/06/2025 22:04:54 SINUS RHYTHM NO LONGER PRESENT Electronically Signed On 01-08-2025 18:48:06 CDT by Jeff Abraham M.D.
[2025-01-07] MEDS: METOPROLOL TARTRATE INJ 5 MG/5 ML VIAL IV PUSH (18:29)
[2025-01-07] MEDS: ATORVASTATIN 40 MG TABLET 80 MG PO (20:26)
[2025-01-08] VITALS (21 sets, daily range): BP systolic 118–147; BP diastolic 47–72; PULSE 63–78; RESP 12–18; TEMP 36.4–37; O2SAT 98–100
[2025-01-08] MEDS: SODIUM CHLORIDE 0.9% IV 1,000 ML 75 ML IV CONT ×2 (04:39→18:28)
[2025-01-08 04:40] LABS: Hematocrit 21.6 % (37.0-47.0); Immature Granulocyte Percent A 1.9 % (0-0.5); Lymphocytes Absolute Auto 1.71 K/mm3 (0.9-3.2); Mean Corpuscular HGB Conc 31.0 g/dl (32-36); Mean Corpuscular Hemoglobin 32.4 pg (26-34); Mean Corpuscular Volume 104.3 fl (80-100); Nucleated Red Blood Cells Absolute Auto 0.000 K/mm3 (0.0-0.012); Nucleated Red Blood Cells Perc 0.0 % (0.0-0.2); Platelet Count Result 233 k/mm3 (150-375); Red Blood Count 2.07 M/mm3 (4.2-5.4); White Blood Count 5.3 K/mm3 (4.5-10.0)
[2025-01-08 04:43] LABS: Alanine Aminotransferase 23 U/L (6-35); Albumin Level 2.4 g/dL (3.5-5.1); Alkaline Phosphatase 54 U/L (38-126); Anion Gap 5 mmol/L (4-12); Aspartate Amino Transferase 35 U/L (14-36); Bilirubin,Total 0.4 mg/dL (0.2-1.3); Blood Urea Nitrogen 13 mg/dL (7-17); Calcium 8.8 mg/dL (8.4-10.2); Carbon Dioxide 18 mmol/L (22-30); Chloride 116 mmol/L (98-107); Estimated CRCL calculation 30 ml/min; Estimated Glomerular Filt Rate 49; Glucose 84 mg/dL (65-110); Magnesium 1.7 mg/dL (1.6-2.3); Potassium 3.8 mmol/L (3.4-5.0); Sodium 139 mmol/L (137-145); Total Protein 4.9 g/dL (6.3-8.2)
[2025-01-08 04:53] LABS: Hemoglobin 6.7 g/dL (12.0-15.0)
[2025-01-08] MEDS: TUBING, BLOOD PLUM PUMP TUBING 1 EACH XX (07:52)
[2025-01-08] MEDS: SODIUM CHLORIDE 0.9% IV 250 ML 30 ML IV CONT (07:52)
[2025-01-08] MEDS: AMIODARONE HCL 200 MG TABLET PO (08:09)
[2025-01-08] MEDS: GABAPENTIN 100 MG CAPSULE 200 MG PO ×3 (08:09→16:39)
[2025-01-08] MEDS: PANTOPRAZOLE 40 MG TABLET PO (08:09)
[2025-01-08] MEDS: SERTRALINE HCL 50 MG TABLET PO (08:09)
--- NOTE | 2025-01-08 11:11 | PM.IMPN ---
Progress Note: A&P Assessment and Plan (1) Bloody diarrhea: Code(s): R19.7 - Diarrhea, unspecified Status: Acute (2) CLAUDIA (acute kidney injury): Code(s): N17.9 - Acute kidney failure, unspecified Status: Resolved Plan A 79-year-old female with past medical history atrial fibrillation on Eliquis, CAD status post CABG, GERD, hyperlipidemia, lumbar spinal stenosis, osteoporosis, chronic anemia, CKD. She presents to [facility] ER on 01/06/2025 with the complaint of diarrhea since 01/01/2025. She has not had this issue before. She typically has constipation and takes a stool softener at night and MiraLax in the morning. She has not taken additional doses. She also takes about 1 diclofenac pill per day for arthritic pain in her right leg. She has been taking her Eliquis and all other medications. She has had endoscopy and colonoscopy many years ago and self reports there have been no major abnormal findings. She describes the diarrhea as loose mixed with blood and sometimes fiber/clot. On some days she has 1 episode and some day she has 4. She lives alone in assisted living at [place]. No one she knows has had similar issues. She has not traveled recently. She has had some dry heaving but no vomiting. No fever. No abdominal pain otherwise. No chest pain or shortness of breath. Hemoglobin 9.5. She averages around this for her baseline. INR 1.9. Serum creatinine 2.16. Previous baseline between 1.1 and 1.8. CTA abdomen pelvis performed. No active extravasation. Colon is distended with fluid otherwise unremarkable. She was given 1 L normal saline bolus, Protonix 80 mg IV x1. ----- Bloody diarrhea history suggestive of ischemic colitis. Rule out infectious etiology. Stool studies. GI consulted. Continue IV fluid resuscitation. Ppi b.i.d.. Hold Eliquis. this has now spontaneously resolved. stool studies pending. CLAUDIA with creatinine up to 2.1. Likely hypovolemia related. Improved with IV resuscitation. Acute on chronic anemia with blood loss. Continue to monitor transfuse to keep hemoglobin more than 7 . transfue one unit of PRBC today as h and h down to 6.7 Coronary artery disease status post CABG Atrial fibrillation on Eliquis and amiodarone and metoprolol GERD Hyperlipidemia Lumbar spinal stenosis Osteoporosis Colonic diverticulosis History of hemorrhoids DVT prophylaxis SCDs Code status full code Subjective Date/time seen: 01/08/25 11:11 Interval history: went into afib with rvr last evenig, which improved with iv metoprolol. h and h dropped to 6.7. no further blood in stool reproted. no abdominal pain. nausea, vomting. she is receiving a unit of blood Review of Systems Review of Systems: All systems reviewed & are unremarkable except as noted in HPI and below Exam Narrative: Constitutional: Generally well appearing, no acute distress Head: Atraumatic, no deformities. Eyes: Pupils equal, round, and reactive to light. Neck: Supple, no tracheal deviation, no JVD. ENMT: Mucous membranes moist Cardiovascular: S1, S2 auscultated. No murmurs, rubs, or gallops. No S3/S4. Normal Distal pulses. No peripheral edema. Respiratory: Lung sounds equal. No wheezes, rales, or rhonchi. Gastrointestinal: Abdomen was soft and non-tender. Non-distended. No rebound or guarding. Genitourinary: Deferred Musculoskeletal: Normal muscle tone and bulk. No obvious deformities or tenderness over extremities. Skin: No rashes. Neurological: Strength 5/5 in extremities. Cranial nerves I-XII grossly intact. Distal sensation intact. Mental Status: Awake, alert and oriented x3. Follows commands Objective Data Vital Signs Vital Signs: Vital Signs - 24 hr 01/07/25 11:34 01/07/25 12:00 01/07/25 14:00 Temperature 98.4 F Pulse Rate 72 75 97 Respiratory Rate 16 Blood Pressure 120/54 L Pulse Oximetry 100 Oxygen Delivery 01/07/25 15:28 01/07/25 16:00 01/07/25 18:00 Temperature 98.8 F Pulse Rate 71 77 147 H Respiratory Rate 18 Blood Pressure 131/60 Pulse Oximetry 100 Oxygen Delivery 01/07/25 18:24 01/07/25 18:29 01/07/25 18:31 Temperature Pulse Rate 136 H 135 H 145 H Respiratory Rate 16 Blood Pressure 110/52 L 110/52 L Pulse Oximetry 96 Oxygen Delivery Room Air 01/07/25 18:52 01/07/25 20:00 01/07/25 20:00 Temperature 98.4 F Pulse Rate 69 67 Respiratory Rate 18 Blood Pressure 108/47 L Pulse Oximetry 96 96 Oxygen Delivery Room Air 01/07/25 20:00 01/07/25 22:00 01/07/25 23:43 Temperature 98.4 F Pulse Rate 68 72 67 Respiratory Rate 18 Blood Pressure 110/48 L Pulse Oximetry 98 Oxygen Delivery 01/08/25 00:00 01/08/25 00:00 01/08/25 02:00 Temperature Pulse Rate 72 68 Respiratory Rate Blood Pressure Pulse Oximetry 98 Oxygen Delivery Room Air 01/08/25 03:52 01/08/25 04:00 01/08/25 04:00 Temperature 97.5 F L Pulse Rate 64 64 Respiratory Rate 18 Blood Pressure 119/52 L Pulse Oximetry 98 98 Oxygen Delivery Room Air 01/08/25 06:00 01/08/25 07:54 01/08/25 07:57 Temperature 98.2 F 98.1 F Pulse Rate 63 71 71 Respiratory Rate 16 16 Blood Pressure 132/56 L 132/56 L Pulse Oximetry 99 99 Oxygen Delivery 01/08/25 08:09 01/08/25 08:20 01/08/25 09:20 Temperature 98.3 F 98.5 F Pulse Rate 71 74 73 Respiratory Rate 18 18 Blood Pressure 125/50 L 121/50 L Pulse Oximetry 98 100 Oxygen Delivery 01/08/25 10:20 Temperature 98.3 F Pulse Rate 72 Respiratory Rate 12 Blood Pressure 127/60 Pulse Oximetry 99 Oxygen Delivery Intake/Output Intake/Output: Intake & Output 01/05/25 01/06/25 01/07/25 01/08/25 23:59 23:59 23:59 23:59 Intake Total 1000 3995.4 1535 Output Total 702 700 Balance 1000 3293.4 835 Meds/Results Medications: Active Medications Generic Name Dose Route Start Last Admin Trade Name Freq PRN Reason Stop Dose Admin Acetaminophen 650 mg 01/07/25 05:32 01/07/25 20:27 Acetaminophen 325 Mg Tablet PO 650 mg Q4H PRN Administration Headache Amiodarone HCl 200 mg 01/07/25 09:00 01/08/25 08:09 Amiodarone Hcl 200 Mg Tablet PO 200 mg DAILY AGUS Administration Atorvastatin Calcium 80 mg 01/07/25 21:00 01/07/25 20:26 Atorvastatin 40 Mg Tablet PO 80 mg HS AGUS Administration Diclofenac Sodium 1 applic 01/07/25 09:00 01/08/25 08:10 Diclofenac Sodium 1% 100 Gm Gel (*Bkc) TOPICAL Not Given TID AGUS Gabapentin 200 mg 01/07/25 09:00 01/08/25 08:09 Gabapentin 100 Mg Capsule PO 200 mg TID AGUS Administration Sodium Chloride 1,000 mls @ 75 mls/hr 01/06/25 17:15 01/08/25 04:39 Normal Saline Iv IV CONT 75 mls/hr .[id number] AGUS Administration Sodium Chloride 250 mls @ 30 mls/hr 01/08/25 05:02 01/08/25 07:52 Normal Saline Iv IV CONT 01/08/25 13:21 30 mls/hr .[id number] STA Administration Pantoprazole Sodium 40 mg 01/07/25 09:00 01/08/25 08:09 Pantoprazole 40 Mg Tablet PO 40 mg QAM AGUS Administration Sertraline HCl 50 mg 01/07/25 09:00 01/08/25 08:09 Sertraline Hcl 50 Mg Tablet PO 50 mg DAILY AGUS Administration Radiology Results: ITS Impressions Abdomen/Pelvis CTA 01/06/25 14:11 IMPRESSION: No active extravasation is identified within the colon to account for patient's presenting symptoms, as detailed above. Labs Labs: Laboratory Results - last 24 hr 01/08/25 01/08/25 03:37 05:14 WBC 5.3 RBC 2.07 L Hgb 6.7 L* Hct 21.6 L MCV 104.3 H MCH 32.4 MCHC 31.0 L RDW 13.5 Plt Count 233 MPV 10.6 H Immature Gran % (Auto) 1.9 H Neut % (Auto) 56.1 Lymph % (Auto) 32.2 [place] % (Auto) 7.3 Eos % (Auto) 2.1 Baso % (Auto) 0.4 Lymph # (Auto) 1.71 [place] # (Auto) 0.4 Eos # (Auto) 0.1 Baso # (Auto) 0.0 Abs Immat Gran (auto) 0.10 H Absolute Neuts (auto) 3.0 Absolute Nucleated RBC 0.000 Nucleated RBC % 0.0 Sodium 139 Potassium 3.8 Chloride 116 H Carbon Dioxide 18 L Anion Gap 5 BUN 13 D Creatinine 1.09 H Estim Creat Clear Calc 30 Estimated GFR 49 L Glucose 84 Calcium 8.8 Magnesium 1.7 Total Bilirubin 0.4 AST 35 ALT 23 Alkaline Phosphatase 54 Total Protein 4.9 L Albumin 2.4 L Blood Type B Negative Antibody Screen Negative Crossmatch See Detail
[2025-01-08 11:40] LABS: Hematocrit 26.2 % (37.0-47.0); Hemoglobin 8.1 g/dL (12.0-15.0)
--- NOTE | 2025-01-08 14:19 | WPDGIPROGNO ---
Progress Note: A&P Assessment and Plan (1) Weight loss: Code(s): R63.4 - Abnormal weight loss Status: Acute (2) Decreased appetite: Code(s): R63.0 - Anorexia Status: Acute (3) GERD (gastroesophageal reflux disease): Qualifiers: Esophagitis presence: without esophagitis Qualified Code(s): K21.9 - Gastro-esophageal reflux disease without esophagitis Code(s): K21.9 - Gastro-esophageal reflux disease without esophagitis Status: Acute (4) Hematochezia: Code(s): K92.1 - Melena Status: Acute (5) Diarrhea: Qualifiers: Diarrhea type: presumed infectious Qualified Code(s): R19.7 - Diarrhea, unspecified Code(s): R19.7 - Diarrhea, unspecified Status: Acute Plan Her diarrhea, weight loss, rectal bleeding Patient has been off Eliquis patient did have a drop in H&H. At this time will keep the patient on clear liquid diet will prep the patient on Friday For upper endoscopy and colonoscopy on Friday Patient voiced understanding Regular GI service will resume patient care on friday Subjective Date/time seen: 01/08/25 14:19 Interval history: Patient seen as a follow-up covering for Dr. Garcia Patient had a hemoglobin drop in 6 and then it came back to 8.1 patient also has been complaining of bright red blood per rectum off and on. And diarrhea according to her she has not been able to give stool sample yet because it is mixed with the urine. Patient did have a colonoscopy by Dr. Colindres in 2022 Patient has been on Eliquis which has been held Review of Systems Constitutional: Constitutional: Denies chills, Denies fatigue, Denies fever(s), Denies headache(s), Denies malaise, Denies weight gain and Denies weight loss Eyes: Eyes: Denies change in vision ENT: Denies dizziness, Denies headache(s) and Reports other (No change in hearing) Cardiovascular: Cardiovascular: Denies chest pain, Denies dyspnea and Reports other (denies palpitations, denies orthopnea) Respiratory: Respiratory: Denies cough, Denies dyspnea and Reports other (denies sputum production, denies hemoptysis) Gastrointestinal: Gastrointestinal: Reports as per HPI Genitourinary: Genitourinary: Denies hematuria, Denies dysuria and Denies urinary incontinence Musculoskeletal: Musculoskeletal: Reports other (denies extremity edema, denies myalgia) Integumentary/Breasts: Skin/Breast: Denies new lesions and Denies rash Neurologic: Denies dizziness, Denies headache(s) and Denies seizure-like activity Endocrine: Endocrine: Denies fatigue Hematologic/Lymphatic: Hematologic/Lymphatic: Denies easy bleeding and Denies easy bruising Objective Data Vital Signs Vital Signs: Vital Signs - 24 hr 01/07/25 15:28 01/07/25 16:00 01/07/25 18:00 Temperature 98.8 F Pulse Rate 71 77 147 H Respiratory Rate 18 Blood Pressure 131/60 Pulse Oximetry 100 Oxygen Delivery 01/07/25 18:24 01/07/25 18:29 01/07/25 18:31 Temperature Pulse Rate 136 H 135 H 145 H Respiratory Rate 16 Blood Pressure 110/52 L 110/52 L Pulse Oximetry 96 Oxygen Delivery Room Air 01/07/25 18:52 01/07/25 20:00 01/07/25 20:00 Temperature 98.4 F Pulse Rate 69 67 Respiratory Rate 18 Blood Pressure 108/47 L Pulse Oximetry 96 96 Oxygen Delivery Room Air 01/07/25 20:00 01/07/25 22:00 01/07/25 23:43 Temperature 98.4 F Pulse Rate 68 72 67 Respiratory Rate 18 Blood Pressure 110/48 L Pulse Oximetry 98 Oxygen Delivery 01/08/25 00:00 01/08/25 00:00 01/08/25 02:00 Temperature Pulse Rate 72 68 Respiratory Rate Blood Pressure Pulse Oximetry 98 Oxygen Delivery Room Air 01/08/25 03:52 01/08/25 04:00 01/08/25 04:00 Temperature 97.5 F L Pulse Rate 64 64 Respiratory Rate 18 Blood Pressure 119/52 L Pulse Oximetry 98 98 Oxygen Delivery Room Air 01/08/25 06:00 01/08/25 07:54 01/08/25 07:57 Temperature 98.2 F 98.1 F Pulse Rate 63 71 71 Respiratory Rate 16 16 Blood Pressure 132/56 L 132/56 L Pulse Oximetry 99 99 Oxygen Delivery 01/08/25 08:00 01/08/25 08:09 01/08/25 08:20 Temperature 98.3 F Pulse Rate 76 71 74 Respiratory Rate 18 Blood Pressure 125/50 L Pulse Oximetry 98 Oxygen Delivery 01/08/25 09:20 01/08/25 10:00 01/08/25 10:20 Temperature 98.5 F 98.3 F Pulse Rate 73 72 72 Respiratory Rate 18 12 Blood Pressure 121/50 L 127/60 Pulse Oximetry 100 99 Oxygen Delivery 01/08/25 11:39 01/08/25 12:00 01/08/25 12:00 Temperature 97.9 F Pulse Rate 75 78 Respiratory Rate 16 Blood Pressure 147/65 H Pulse Oximetry 100 100 Oxygen Delivery Room Air Intake/Output Intake/Output: Intake & Output 01/05/25 01/06/25 01/07/25 01/08/25 23:59 23:59 23:59 23:59 Intake Total 1000 3995.4 1995 Output Total 702 1000 Balance 1000 3293.4 995 Meds/Results Medications: Active Medications Generic Name Dose Route Start Last Admin Trade Name Freq PRN Reason Stop Dose Admin Acetaminophen 650 mg 01/07/25 05:32 01/07/25 20:27 Acetaminophen 325 Mg Tablet PO 650 mg Q4H PRN Administration Headache Amiodarone HCl 200 mg 01/07/25 09:00 01/08/25 08:09 Amiodarone Hcl 200 Mg Tablet PO 200 mg DAILY AGUS Administration Atorvastatin Calcium 80 mg 01/07/25 21:00 01/07/25 20:26 Atorvastatin 40 Mg Tablet PO 80 mg HS AGUS Administration Diclofenac Sodium 1 applic 01/07/25 09:00 01/08/25 12:35 Diclofenac Sodium 1% 100 Gm Gel (*Bkc) TOPICAL Not Given TID AGUS Gabapentin 200 mg 01/07/25 09:00 01/08/25 12:35 Gabapentin 100 Mg Capsule PO 200 mg TID AGUS Administration Sodium Chloride 1,000 mls @ 75 mls/hr 01/06/25 17:15 01/08/25 11:28 Normal Saline Iv IV CONT Not Given .[id number] AGUS Pantoprazole Sodium 40 mg 01/07/25 09:00 01/08/25 08:09 Pantoprazole 40 Mg Tablet PO 40 mg QAM AGUS Administration Sertraline HCl 50 mg 01/07/25 09:00 01/08/25 08:09 Sertraline Hcl 50 Mg Tablet PO 50 mg DAILY AGUS Administration Radiology Results: ITS Impressions Abdomen/Pelvis CTA 01/06/25 14:11 IMPRESSION: No active extravasation is identified within the colon to account for patient's presenting symptoms, as detailed above. Labs Labs: Laboratory Results - last 24 hr 01/08/25 01/08/25 01/08/25 03:37 05:14 11:34 WBC 5.3 RBC 2.07 L Hgb 6.7 L* 8.1 L Hct 21.6 L 26.2 L MCV 104.3 H MCH 32.4 MCHC 31.0 L RDW 13.5 Plt Count 233 MPV 10.6 H Immature Gran % (Auto) 1.9 H Neut % (Auto) 56.1 Lymph % (Auto) 32.2 [place] % (Auto) 7.3 Eos % (Auto) 2.1 Baso % (Auto) 0.4 Lymph # (Auto) 1.71 [place] # (Auto) 0.4 Eos # (Auto) 0.1 Baso # (Auto) 0.0 Abs Immat Gran (auto) 0.10 H Absolute Neuts (auto) 3.0 Absolute Nucleated RBC 0.000 Nucleated RBC % 0.0 Sodium 139 Potassium 3.8 Chloride 116 H Carbon Dioxide 18 L Anion Gap 5 BUN 13 D Creatinine 1.09 H Estim Creat Clear Calc 30 Estimated GFR 49 L Glucose 84 Calcium 8.8 Magnesium 1.7 Total Bilirubin 0.4 AST 35 ALT 23 Alkaline Phosphatase 54 Total Protein 4.9 L Albumin 2.4 L Blood Type B Negative Antibody Screen Negative Crossmatch See Detail
--- NOTE | 2025-01-08 15:22 | P.PNGI_ITS ---
Progress Note: A&P Assessment and Plan (1) Weight loss: Code(s): R63.4 - Abnormal weight loss Status: Acute (2) Decreased appetite: Code(s): R63.0 - Anorexia Status: Acute (3) Iron deficiency: Code(s): E61.1 - Iron deficiency Status: Acute Plan Please see the other progress note for details Subjective Date/time seen: 01/08/25 15:22 Objective Data Vital Signs Vital Signs: Vital Signs - 24 hr 01/07/25 15:28 01/07/25 16:00 01/07/25 18:00 Temperature 98.8 F Pulse Rate 71 77 147 H Respiratory Rate 18 Blood Pressure 131/60 Pulse Oximetry 100 Oxygen Delivery 01/07/25 18:24 01/07/25 18:29 01/07/25 18:31 Temperature Pulse Rate 136 H 135 H 145 H Respiratory Rate 16 Blood Pressure 110/52 L 110/52 L Pulse Oximetry 96 Oxygen Delivery Room Air 01/07/25 18:52 01/07/25 20:00 01/07/25 20:00 Temperature 98.4 F Pulse Rate 69 67 Respiratory Rate 18 Blood Pressure 108/47 L Pulse Oximetry 96 96 Oxygen Delivery Room Air 01/07/25 20:00 01/07/25 22:00 01/07/25 23:43 Temperature 98.4 F Pulse Rate 68 72 67 Respiratory Rate 18 Blood Pressure 110/48 L Pulse Oximetry 98 Oxygen Delivery 01/08/25 00:00 01/08/25 00:00 01/08/25 02:00 Temperature Pulse Rate 72 68 Respiratory Rate Blood Pressure Pulse Oximetry 98 Oxygen Delivery Room Air 01/08/25 03:52 01/08/25 04:00 01/08/25 04:00 Temperature 97.5 F L Pulse Rate 64 64 Respiratory Rate 18 Blood Pressure 119/52 L Pulse Oximetry 98 98 Oxygen Delivery Room Air 01/08/25 06:00 01/08/25 07:54 01/08/25 07:57 Temperature 98.2 F 98.1 F Pulse Rate 63 71 71 Respiratory Rate 16 16 Blood Pressure 132/56 L 132/56 L Pulse Oximetry 99 99 Oxygen Delivery 01/08/25 08:00 01/08/25 08:09 01/08/25 08:20 Temperature 98.3 F Pulse Rate 76 71 74 Respiratory Rate 18 Blood Pressure 125/50 L Pulse Oximetry 98 Oxygen Delivery 01/08/25 09:20 01/08/25 10:00 01/08/25 10:20 Temperature 98.5 F 98.3 F Pulse Rate 73 72 72 Respiratory Rate 18 12 Blood Pressure 121/50 L 127/60 Pulse Oximetry 100 99 Oxygen Delivery 01/08/25 11:39 01/08/25 12:00 01/08/25 12:00 Temperature 97.9 F Pulse Rate 75 78 Respiratory Rate 16 Blood Pressure 147/65 H Pulse Oximetry 100 100 Oxygen Delivery Room Air Intake/Output Intake/Output: Intake & Output 01/05/25 01/06/25 01/07/25 01/08/25 23:59 23:59 23:59 23:59 Intake Total 1000 3995.4 1995 Output Total 702 1000 Balance 1000 3293.4 995 Meds/Results Medications: Active Medications Generic Name Dose Route Start Last Admin Trade Name Freq PRN Reason Stop Dose Admin Acetaminophen 650 mg 01/07/25 05:32 01/07/25 20:27 Acetaminophen 325 Mg Tablet PO 650 mg Q4H PRN Administration Headache Amiodarone HCl 200 mg 01/07/25 09:00 01/08/25 08:09 Amiodarone Hcl 200 Mg Tablet PO 200 mg DAILY AGUS Administration Atorvastatin Calcium 80 mg 01/07/25 21:00 01/07/25 20:26 Atorvastatin 40 Mg Tablet PO 80 mg HS AGUS Administration Diclofenac Sodium 1 applic 01/07/25 09:00 01/08/25 12:35 Diclofenac Sodium 1% 100 Gm Gel (*Bkc) TOPICAL Not Given TID AGUS Gabapentin 200 mg 01/07/25 09:00 01/08/25 12:35 Gabapentin 100 Mg Capsule PO 200 mg TID AGUS Administration Sodium Chloride 1,000 mls @ 75 mls/hr 01/06/25 17:15 01/08/25 11:28 Normal Saline Iv IV CONT Not Given .[id number] AGUS Pantoprazole Sodium 40 mg 01/07/25 09:00 01/08/25 08:09 Pantoprazole 40 Mg Tablet PO 40 mg QAM AGUS Administration Sertraline HCl 50 mg 01/07/25 09:00 01/08/25 08:09 Sertraline Hcl 50 Mg Tablet PO 50 mg DAILY AGUS Administration Radiology Results: ITS Impressions Abdomen/Pelvis CTA 01/06/25 14:11 IMPRESSION: No active extravasation is identified within the colon to account for patient's presenting symptoms, as detailed above. Labs Labs: Laboratory Results - last 24 hr 01/08/25 01/08/25 01/08/25 03:37 05:14 11:34 WBC 5.3 RBC 2.07 L Hgb 6.7 L* 8.1 L Hct 21.6 L 26.2 L MCV 104.3 H MCH 32.4 MCHC 31.0 L RDW 13.5 Plt Count 233 MPV 10.6 H Immature Gran % (Auto) 1.9 H Neut % (Auto) 56.1 Lymph % (Auto) 32.2 [place] % (Auto) 7.3 Eos % (Auto) 2.1 Baso % (Auto) 0.4 Lymph # (Auto) 1.71 [place] # (Auto) 0.4 Eos # (Auto) 0.1 Baso # (Auto) 0.0 Abs Immat Gran (auto) 0.10 H Absolute Neuts (auto) 3.0 Absolute Nucleated RBC 0.000 Nucleated RBC % 0.0 Sodium 139 Potassium 3.8 Chloride 116 H Carbon Dioxide 18 L Anion Gap 5 BUN 13 D Creatinine 1.09 H Estim Creat Clear Calc 30 Estimated GFR 49 L Glucose 84 Calcium 8.8 Magnesium 1.7 Total Bilirubin 0.4 AST 35 ALT 23 Alkaline Phosphatase 54 Total Protein 4.9 L Albumin 2.4 L Blood Type B Negative Antibody Screen Negative Crossmatch See Detail
[2025-01-08 19:46] LABS: Toxigenic C. Diff NEGATIVE (NEGATIVE)
[2025-01-08 20:21] LABS: Hematocrit 24.1 % (37.0-47.0); Hemoglobin 7.5 g/dL (12.0-15.0)
[2025-01-08] MEDS: ACETAMINOPHEN 325 MG TABLET 650 MG PO (20:35)
[2025-01-08] MEDS: ATORVASTATIN 40 MG TABLET 80 MG PO (20:36)
[2025-01-09] VITALS (17 sets, daily range): BP systolic 126–157; BP diastolic 53–68; PULSE 62–85; RESP 16–20; TEMP 36.5–37.1; O2SAT 97–100
[2025-01-09 04:14] LABS: Hematocrit 25.0 % (37.0-47.0); Hemoglobin 7.6 g/dL (12.0-15.0); Immature Granulocyte Percent A 1.4 % (0-0.5); Lymphocytes Absolute Auto 1.74 K/mm3 (0.9-3.2); Mean Corpuscular HGB Conc 30.4 g/dl (32-36); Mean Corpuscular Hemoglobin 30.5 pg (26-34); Mean Corpuscular Volume 100.4 fl (80-100); Nucleated Red Blood Cells Absolute Auto 0.000 K/mm3 (0.0-0.012); Nucleated Red Blood Cells Perc 0.0 % (0.0-0.2); Platelet Count Result 226 k/mm3 (150-375); Red Blood Count 2.49 M/mm3 (4.2-5.4); White Blood Count 5.0 K/mm3 (4.5-10.0)
[2025-01-09 04:43] LABS: Alanine Aminotransferase 24 U/L (6-35); Albumin Level 2.4 g/dL (3.5-5.1); Alkaline Phosphatase 51 U/L (38-126); Anion Gap 5 mmol/L (4-12); Aspartate Amino Transferase 32 U/L (14-36); Bilirubin,Total 0.6 mg/dL (0.2-1.3); Blood Urea Nitrogen 6 mg/dL (7-17); Calcium 8.1 mg/dL (8.4-10.2); Carbon Dioxide 17 mmol/L (22-30); Chloride 114 mmol/L (98-107); Estimated CRCL calculation 37 ml/min; Estimated Glomerular Filt Rate 56; Glucose 78 mg/dL (65-110); Magnesium 1.6 mg/dL (1.6-2.3); Potassium 3.3 mmol/L (3.4-5.0); Sodium 136 mmol/L (137-145); Total Protein 4.7 g/dL (6.3-8.2)
[2025-01-09] MEDS: PANTOPRAZOLE 40 MG TABLET PO (08:35)
[2025-01-09] MEDS: GABAPENTIN 100 MG CAPSULE 200 MG PO ×3 (08:35→16:50)
[2025-01-09] MEDS: SODIUM CHLORIDE 0.9% IV 1,000 ML 75 ML IV CONT (08:36)
[2025-01-09] MEDS: AMIODARONE HCL 200 MG TABLET PO (08:36)
[2025-01-09] MEDS: SERTRALINE HCL 50 MG TABLET PO (08:36)
--- NOTE | 2025-01-09 09:48 | PM.IMPN ---
Progress Note: A&P Assessment and Plan (1) Bloody diarrhea: Code(s): R19.7 - Diarrhea, unspecified Status: Acute (2) CLAUDIA (acute kidney injury): Code(s): N17.9 - Acute kidney failure, unspecified Status: Resolved Plan A 79-year-old female with past medical history atrial fibrillation on Eliquis, CAD status post CABG, GERD, hyperlipidemia, lumbar spinal stenosis, osteoporosis, chronic anemia, CKD. She presents to [facility] ER on 01/06/2025 with the complaint of diarrhea since 01/01/2025. She has not had this issue before. She typically has constipation and takes a stool softener at night and MiraLax in the morning. She has not taken additional doses. She also takes about 1 diclofenac pill per day for arthritic pain in her right leg. She has been taking her Eliquis and all other medications. She has had endoscopy and colonoscopy many years ago and self reports there have been no major abnormal findings. She describes the diarrhea as loose mixed with blood and sometimes fiber/clot. On some days she has 1 episode and some day she has 4. She lives alone in assisted living at [facility]. No one she knows has had similar issues. She has not traveled recently. She has had some dry heaving but no vomiting. No fever. No abdominal pain otherwise. No chest pain or shortness of breath. Hemoglobin 9.5. She averages around this for her baseline. INR 1.9. Serum creatinine 2.16. Previous baseline between 1.1 and 1.8. CTA abdomen pelvis performed. No active extravasation. Colon is distended with fluid otherwise unremarkable. She was given 1 L normal saline bolus, Protonix 80 mg IV x1. ----- Bloody diarrhea history suggestive of ischemic colitis. Rule out infectious etiology. Stool studies. GI consulted. Continue IV fluid resuscitation. Ppi b.i.d.. Hold Eliquis. this has now spontaneously resolved. stool studies pending. Plan for EGD colonoscopy in a.m.. CLAUDIA with creatinine up to 2.1. Likely hypovolemia related. Improved with IV resuscitation. Acute on chronic anemia with blood loss. Continue to monitor transfuse to keep hemoglobin more than 7 . transfue one unit of PRBC today as h and h down to 6.7. Post transfusion hemoglobin up to 8.1. Continue to monitor H&H. Coronary artery disease status post CABG Atrial fibrillation on Eliquis and amiodarone and metoprolol GERD Hyperlipidemia Lumbar spinal stenosis Osteoporosis Colonic diverticulosis History of hemorrhoids DVT prophylaxis SCDs Code status full code Subjective Date/time seen: 01/09/25 09:48 Interval history: No overnight events. Still having watery diarrhea. Plan for colonoscopy and EGD tomorrow. Denies any abdominal pain. No more blood in stool. Review of Systems Review of Systems: All systems reviewed & are unremarkable except as noted in HPI and below Exam Narrative: Constitutional: Generally well appearing, no acute distress Head: Atraumatic, no deformities. Eyes: Pupils equal, round, and reactive to light. Neck: Supple, no tracheal deviation, no JVD. ENMT: Mucous membranes moist Cardiovascular: S1, S2 auscultated. No murmurs, rubs, or gallops. No S3/S4. Normal Distal pulses. No peripheral edema. Respiratory: Lung sounds equal. No wheezes, rales, or rhonchi. Gastrointestinal: Abdomen was soft and non-tender. Non-distended. No rebound or guarding. Genitourinary: Deferred Musculoskeletal: Normal muscle tone and bulk. No obvious deformities or tenderness over extremities. Skin: No rashes. Neurological: Strength 5/5 in extremities. Cranial nerves I-XII grossly intact. Distal sensation intact. Mental Status: Awake, alert and oriented x3. Follows commands Objective Data Vital Signs Vital Signs: Vital Signs - 24 hr 01/08/25 10:00 01/08/25 10:20 01/08/25 11:39 Temperature 98.3 F 97.9 F Pulse Rate 72 72 75 Respiratory Rate 12 16 Blood Pressure 127/60 147/65 H Pulse Oximetry 99 100 Oxygen Delivery 01/08/25 12:00 01/08/25 12:00 01/08/25 14:00 Temperature Pulse Rate 78 74 Respiratory Rate Blood Pressure Pulse Oximetry 100 Oxygen Delivery Room Air 01/08/25 16:00 01/08/25 16:00 01/08/25 16:00 Temperature 98.6 F Pulse Rate 71 75 Respiratory Rate 18 Blood Pressure 120/72 Pulse Oximetry 100 100 Oxygen Delivery Room Air 01/08/25 18:00 01/08/25 19:25 01/08/25 20:00 Temperature 98.6 F Pulse Rate 74 71 Respiratory Rate 17 Blood Pressure 118/47 L Pulse Oximetry 98 98 Oxygen Delivery Room Air 01/08/25 20:00 01/08/25 22:00 01/09/25 00:00 Temperature Pulse Rate 71 69 Respiratory Rate Blood Pressure Pulse Oximetry 98 Oxygen Delivery Room Air 01/09/25 00:00 01/09/25 00:00 01/09/25 02:00 Temperature 98.7 F Pulse Rate 68 62 65 Respiratory Rate 17 Blood Pressure 126/56 L Pulse Oximetry 99 Oxygen Delivery 01/09/25 03:17 01/09/25 03:41 01/09/25 04:00 Temperature 98.4 F Pulse Rate 73 65 Respiratory Rate 16 Blood Pressure 131/68 Pulse Oximetry 99 99 Oxygen Delivery Room Air 01/09/25 06:00 01/09/25 07:46 01/09/25 08:36 Temperature 98.7 F Pulse Rate 69 73 74 Respiratory Rate 16 Blood Pressure 143/64 H Pulse Oximetry 99 Oxygen Delivery Intake/Output Intake/Output: Intake & Output 01/06/25 01/07/25 01/08/25 01/09/25 23:59 23:59 23:59 23:59 Intake Total 1000 3995.4 3875 1000 Output Total 702 1700 Balance 1000 3293.4 2175 1000 Meds/Results Medications: Active Medications Generic Name Dose Route Start Last Admin Trade Name Freq PRN Reason Stop Dose Admin Acetaminophen 650 mg 01/07/25 05:32 01/08/25 20:35 Acetaminophen 325 Mg Tablet PO 650 mg Q4H PRN Administration Headache Amiodarone HCl 200 mg 01/07/25 09:00 01/09/25 08:36 Amiodarone Hcl 200 Mg Tablet PO 200 mg DAILY AGUS Administration Atorvastatin Calcium 80 mg 01/07/25 21:00 01/08/25 20:36 Atorvastatin 40 Mg Tablet PO 80 mg HS AGUS Administration Diclofenac Sodium 1 applic 01/07/25 09:00 01/09/25 08:35 Diclofenac Sodium 1% 100 Gm Gel (*Bkc) TOPICAL Not Given TID AGUS Gabapentin 200 mg 01/07/25 09:00 01/09/25 08:35 Gabapentin 100 Mg Capsule PO 200 mg TID AGUS Administration Sodium Chloride 1,000 mls @ 75 mls/hr 01/06/25 17:15 01/09/25 08:36 Normal Saline Iv IV CONT 75 mls/hr .[id number] AGUS Administration Pantoprazole Sodium 40 mg 01/07/25 09:00 01/09/25 08:35 Pantoprazole 40 Mg Tablet PO 40 mg QAM AGUS Administration Potassium Chloride 40 meq 01/09/25 09:47 Potassium Chloride 20 Meq Er Tablet PO 01/09/25 09:48 ONCE ONE Sertraline HCl 50 mg 01/07/25 09:00 01/09/25 08:36 Sertraline Hcl 50 Mg Tablet PO 50 mg DAILY AGUS Administration Radiology Results: ITS Impressions Abdomen/Pelvis CTA 01/06/25 14:11 IMPRESSION: No active extravasation is identified within the colon to account for patient's presenting symptoms, as detailed above. Labs Labs: Laboratory Results - last 24 hr 01/08/25 01/08/25 01/08/25 05:14 11:34 18:29 WBC RBC Hgb 8.1 L Hct 26.2 L MCV MCH MCHC RDW Plt Count MPV Immature Gran % (Auto) Neut % (Auto) Lymph % (Auto) [place] % (Auto) Eos % (Auto) Baso % (Auto) Lymph # (Auto) [place] # (Auto) Eos # (Auto) Baso # (Auto) Abs Immat Gran (auto) Absolute Neuts (auto) Absolute Nucleated RBC Nucleated RBC % Sodium Potassium Chloride Carbon Dioxide Anion Gap BUN Creatinine Estim Creat Clear Calc Estimated GFR Glucose Calcium Magnesium Total Bilirubin AST ALT Alkaline Phosphatase Total Protein Albumin C. difficile (PCR) Negative Crossmatch See Detail 01/08/25 01/08/25 01/09/25 18:29 20:03 03:39 WBC 5.0 RBC 2.49 L Hgb 7.5 L 7.6 L Hct 24.1 L 25.0 L MCV 100.4 H MCH 30.5 D MCHC 30.4 L RDW 15.9 H Plt Count 226 MPV 10.4 Immature Gran % (Auto) 1.4 H Neut % (Auto) 50.9 Lymph % (Auto) 34.6 [place] % (Auto) 9.1 H Eos % (Auto) 3.2 Baso % (Auto) 0.8 Lymph # (Auto) 1.74 [place] # (Auto) 0.5 Eos # (Auto) 0.2 Baso # (Auto) 0.0 Abs Immat Gran (auto) 0.07 H Absolute Neuts (auto) 2.6 Absolute Nucleated RBC 0.000 Nucleated RBC % 0.0 Sodium 136 L Potassium 3.3 L Chloride 114 H Carbon Dioxide 17 L Anion Gap 5 BUN 6 L D Creatinine 0.96 Estim Creat Clear Calc 37 Estimated GFR 56 L Glucose 78 Calcium 8.1 L Magnesium 1.6 Total Bilirubin 0.6 AST 32 ALT 24 Alkaline Phosphatase 51 Total Protein 4.7 L Albumin 2.4 L C. difficile (PCR) Cancelled Crossmatch
--- NOTE | 2025-01-09 10:41 | WPDGIPROGNO ---
Progress Note: A&P Assessment and Plan (1) Weight loss: Code(s): R63.4 - Abnormal weight loss Status: Acute (2) Decreased appetite: Code(s): R63.0 - Anorexia Status: Acute (3) Iron deficiency: Code(s): E61.1 - Iron deficiency Status: Acute (4) Diarrhea: Qualifiers: Diarrhea type: presumed infectious Qualified Code(s): R19.7 - Diarrhea, unspecified Code(s): R19.7 - Diarrhea, unspecified Status: Acute (5) Hematochezia: Code(s): K92.1 - Melena Status: Acute Plan CLINICALLY PATIENT IS STABLE LAB WORKUP WAS REVIEWED WITH THE PATIENT PATIENT'S POTASSIUM IS SLIGHTLY LOW WILL REPLENISH THE POTASSIUM TODAY WILL PREP THE PATIENT FOR UPPER ENDOSCOPY AND COLONOSCOPY. REGULAR GI SERVICE WILL RESUME PATIENT CARE TOMORROW. Subjective Date/time seen: 01/09/25 10:41 Interval history: PATIENT IS DOING WELL ACCORDING TO HER NOTHING HAS CHANGED FROM YESTERDAY DENIES ANY BLOOD IN THE STOOL ANYMORE ELIQUIS HAS BEEN ON HOLD PATIENT IS BEING SEEN FOR WEIGHT LOSS DIARRHEA RECTAL BLEEDING FAMILY HISTORY OF COLON CANCER Review of Systems Review of Systems: All systems reviewed & are unremarkable except as noted in HPI and below Constitutional: Constitutional: Denies chills, Denies fatigue, Denies fever(s), Denies headache(s), Denies malaise, Denies weight gain and Denies weight loss Eyes: Eyes: Denies change in vision ENT: Denies dizziness, Denies headache(s) and Reports other (No change in hearing) Cardiovascular: Cardiovascular: Denies chest pain, Denies dyspnea and Reports other (denies palpitations, denies orthopnea) Respiratory: Respiratory: Denies cough, Denies dyspnea and Reports other (denies sputum production, denies hemoptysis) Gastrointestinal: Gastrointestinal: Reports as per HPI Genitourinary: Genitourinary: Denies hematuria, Denies dysuria and Denies urinary incontinence Musculoskeletal: Musculoskeletal: Reports other (denies extremity edema, denies myalgia) Integumentary/Breasts: Skin/Breast: Denies new lesions and Denies rash Neurologic: Denies dizziness, Denies headache(s) and Denies seizure-like activity Endocrine: Endocrine: Denies fatigue Hematologic/Lymphatic: Hematologic/Lymphatic: Denies easy bleeding and Denies easy bruising Exam Const: General: cooperative; No acute distress Orientation/consciousness: patient oriented x3 HENMT: Head: normal to inspection Neck: Neck: supple Resp: Auscultation: clear to auscultation bilaterally Cardio: Rate: regular rate Rhythm: regular rhythm GI: Inspection: non-distended GI Palp: Yes Soft to palpation, No Tenderness to palpation present (GI) and No Palpable mass present Auscultation: normal bowel sounds Rectal Exam: deferred Skin: General skin exam: no rashes or lesions noted Neuro: General: patient oriented x3 Extrem: General: no edema Objective Data Vital Signs Vital Signs: Vital Signs - 24 hr 01/08/25 11:39 01/08/25 12:00 01/08/25 12:00 Temperature 97.9 F Pulse Rate 75 78 Respiratory Rate 16 Blood Pressure 147/65 H Pulse Oximetry 100 100 Oxygen Delivery Room Air 01/08/25 14:00 01/08/25 16:00 01/08/25 16:00 Temperature 98.6 F Pulse Rate 74 71 75 Respiratory Rate 18 Blood Pressure 120/72 Pulse Oximetry 100 Oxygen Delivery 01/08/25 16:00 01/08/25 18:00 01/08/25 19:25 Temperature 98.6 F Pulse Rate 74 71 Respiratory Rate 17 Blood Pressure 118/47 L Pulse Oximetry 100 98 Oxygen Delivery Room Air 01/08/25 20:00 01/08/25 20:00 01/08/25 22:00 Temperature Pulse Rate 71 69 Respiratory Rate Blood Pressure Pulse Oximetry 98 Oxygen Delivery Room Air 01/09/25 00:00 01/09/25 00:00 01/09/25 00:00 Temperature 98.7 F Pulse Rate 68 62 Respiratory Rate 17 Blood Pressure 126/56 L Pulse Oximetry 98 99 Oxygen Delivery Room Air 01/09/25 02:00 01/09/25 03:17 01/09/25 03:41 Temperature 98.4 F Pulse Rate 65 73 Respiratory Rate 16 Blood Pressure 131/68 Pulse Oximetry 99 99 Oxygen Delivery Room Air 01/09/25 04:00 01/09/25 06:00 01/09/25 07:46 Temperature 98.7 F Pulse Rate 65 69 73 Respiratory Rate 16 Blood Pressure 143/64 H Pulse Oximetry 99 Oxygen Delivery 01/09/25 08:36 Temperature Pulse Rate 74 Respiratory Rate Blood Pressure Pulse Oximetry Oxygen Delivery Intake/Output Intake/Output: Intake & Output 01/06/25 01/07/25 01/08/25 01/09/25 23:59 23:59 23:59 23:59 Intake Total 1000 3995.4 3875 1000 Output Total 702 1700 Balance 1000 3293.4 2175 1000 Meds/Results Medications: Active Medications Generic Name Dose Route Start Last Admin Trade Name Freq PRN Reason Stop Dose Admin Acetaminophen 650 mg 01/07/25 05:32 01/08/25 20:35 Acetaminophen 325 Mg Tablet PO 650 mg Q4H PRN Administration Headache Amiodarone HCl 200 mg 01/07/25 09:00 01/09/25 08:36 Amiodarone Hcl 200 Mg Tablet PO 200 mg DAILY AGUS Administration Atorvastatin Calcium 80 mg 01/07/25 21:00 01/08/25 20:36 Atorvastatin 40 Mg Tablet PO 80 mg HS AGUS Administration Diclofenac Sodium 1 applic 01/07/25 09:00 01/09/25 08:35 Diclofenac Sodium 1% 100 Gm Gel (*Bkc) TOPICAL Not Given TID AGUS Gabapentin 200 mg 01/07/25 09:00 01/09/25 08:35 Gabapentin 100 Mg Capsule PO 200 mg TID AGUS Administration Sodium Chloride 1,000 mls @ 75 mls/hr 01/06/25 17:15 01/09/25 08:36 Normal Saline Iv IV CONT 75 mls/hr .[id number] AGUS Administration Magnesium Sulfate 2 gm in 50 mls @ 50 mls/hr 01/09/25 09:59 Magnesium Sulf 2 Gm/Water 50ml IVPB 01/09/25 10:58 ONCE ONE Pantoprazole Sodium 40 mg 01/07/25 09:00 01/09/25 08:35 Pantoprazole 40 Mg Tablet PO 40 mg QAM AGUS Administration Sertraline HCl 50 mg 01/07/25 09:00 01/09/25 08:36 Sertraline Hcl 50 Mg Tablet PO 50 mg DAILY AGUS Administration Radiology Results: ITS Impressions Abdomen/Pelvis CTA 01/06/25 14:11 IMPRESSION: No active extravasation is identified within the colon to account for patient's presenting symptoms, as detailed above. Labs Labs: Laboratory Results - last 24 hr 01/08/25 01/08/25 01/08/25 11:34 18:29 18:29 WBC RBC Hgb 8.1 L Hct 26.2 L MCV MCH MCHC RDW Plt Count MPV Immature Gran % (Auto) Neut % (Auto) Lymph % (Auto) [place] % (Auto) Eos % (Auto) Baso % (Auto) Lymph # (Auto) [place] # (Auto) Eos # (Auto) Baso # (Auto) Abs Immat Gran (auto) Absolute Neuts (auto) Absolute Nucleated RBC Nucleated RBC % Sodium Potassium Chloride Carbon Dioxide Anion Gap BUN Creatinine Estim Creat Clear Calc Estimated GFR Glucose Calcium Magnesium Total Bilirubin AST ALT Alkaline Phosphatase Total Protein Albumin C. difficile (PCR) Negative Cancelled 01/08/25 01/09/25 20:03 03:39 WBC 5.0 RBC 2.49 L Hgb 7.5 L 7.6 L Hct 24.1 L 25.0 L MCV 100.4 H MCH 30.5 D MCHC 30.4 L RDW 15.9 H Plt Count 226 MPV 10.4 Immature Gran % (Auto) 1.4 H Neut % (Auto) 50.9 Lymph % (Auto) 34.6 [place] % (Auto) 9.1 H Eos % (Auto) 3.2 Baso % (Auto) 0.8 Lymph # (Auto) 1.74 [place] # (Auto) 0.5 Eos # (Auto) 0.2 Baso # (Auto) 0.0 Abs Immat Gran (auto) 0.07 H Absolute Neuts (auto) 2.6 Absolute Nucleated RBC 0.000 Nucleated RBC % 0.0 Sodium 136 L Potassium 3.3 L Chloride 114 H Carbon Dioxide 17 L Anion Gap 5 BUN 6 L D Creatinine 0.96 Estim Creat Clear Calc 37 Estimated GFR 56 L Glucose 78 Calcium 8.1 L Magnesium 1.6 Total Bilirubin 0.6 AST 32 ALT 24 Alkaline Phosphatase 51 Total Protein 4.7 L Albumin 2.4 L C. difficile (PCR)
[2025-01-09] MEDS: MAGNESIUM SULF 2 GM/WATER 50ML 2 GM/50 ML BAG IVPB (12:08)
[2025-01-09] MEDS: POTASSIUM CHLORIDE INJ 40 MEQ in SODIUM CHLORIDE 0.9% IV 500 ML 130 MEQ IVPB ×2 (13:13→20:58)
[2025-01-09 19:09] LABS: Potassium 3.3 mmol/L (3.4-5.0)
[2025-01-09] MEDS: ATORVASTATIN 40 MG TABLET 80 MG PO (20:58)
[2025-01-10] VITALS (18 sets, daily range): BP systolic 96–181; BP diastolic 48–71; PULSE 57–87; RESP 14–20; TEMP 36.3–37; O2SAT 98–100
[2025-01-10] MEDS: SODIUM CHLORIDE 0.9% IV 1,000 ML 75 ML IV CONT (01:55)
[2025-01-10 04:29] LABS: Hematocrit 25.9 % (37.0-47.0); Hemoglobin 7.9 g/dL (12.0-15.0); Immature Granulocyte Percent A 0.8 % (0-0.5); Lymphocytes Absolute Auto 1.66 K/mm3 (0.9-3.2); Mean Corpuscular HGB Conc 30.5 g/dl (32-36); Mean Corpuscular Hemoglobin 30.9 pg (26-34); Mean Corpuscular Volume 101.2 fl (80-100); Nucleated Red Blood Cells Absolute Auto 0.000 K/mm3 (0.0-0.012); Nucleated Red Blood Cells Perc 0.0 % (0.0-0.2); Platelet Count Result 245 k/mm3 (150-375); Red Blood Count 2.56 M/mm3 (4.2-5.4); White Blood Count 6.1 K/mm3 (4.5-10.0)
[2025-01-10 04:55] LABS: Alanine Aminotransferase 27 U/L (6-35); Albumin Level 2.4 g/dL (3.5-5.1); Alkaline Phosphatase 56 U/L (38-126); Anion Gap 6 mmol/L (4-12); Aspartate Amino Transferase 37 U/L (14-36); Bilirubin,Total 0.3 mg/dL (0.2-1.3); Calcium 8.1 mg/dL (8.4-10.2); Carbon Dioxide 16 mmol/L (22-30); Chloride 119 mmol/L (98-107); Estimated CRCL calculation 44 ml/min; Estimated Glomerular Filt Rate > 60; Glucose 86 mg/dL (65-110); Magnesium 1.9 mg/dL (1.6-2.3); Potassium 3.7 mmol/L (3.4-5.0); Sodium 141 mmol/L (137-145); Total Protein 4.9 g/dL (6.3-8.2)
[2025-01-10 05:29] LABS: Blood Urea Nitrogen < 2 mg/dL (7-17)
[2025-01-10] MEDS: AMIODARONE HCL 200 MG TABLET PO (08:21)
[2025-01-10] MEDS: SERTRALINE HCL 50 MG TABLET PO (08:21)
[2025-01-10] MEDS: PANTOPRAZOLE 40 MG TABLET PO (08:21)
[2025-01-10] MEDS: GABAPENTIN 100 MG CAPSULE 200 MG PO ×3 (08:21→17:54)
--- NOTE | 2025-01-10 08:44 | P.CDI_ITS ---
CDI Query Clarification Request BMI: 22.4 Nutritional Diagnostic Statement: Please refer to the comprehensive nutrition assessment for further information. If you agree with diagnosis of Moderate protein calorie malnutrition related to inadequate energy intake as evidenced by pt report of poor po intake for greater than 1 month, a significant weight loss of -11% x 2 months, and NFPE findings for moderate subcutaneous fat loss (cheeks) and moderate muscle wasting (temples, clavicle). Please specify severity if known: * Mild * Moderate * Severe * Other/Unknown
--- NOTE | 2025-01-10 09:49 | WPDANESEPPF ---
Anes - Initial Pre Proc Eval Procedure: Operation Date: 01/10/25 14:00 Proposed Procedures p EGD & Diagnostic Colonoscopy - Tre Weinberg MD Date/Time: 01/10/25 09:49 Surgeon: Gricelda Gonzales MD Pre Op Diagnosis: Chest Pain Patient Data Age: 79 Gender: F Height: 1.65 m Weight: 61.1 kg Last Vital Signs Temp 36.5 C 01/10/25 08:00 Pulse 67 01/10/25 08:21 Resp 18 01/10/25 08:00 BP 164/66 H 01/10/25 08:00 Pulse Ox 100 01/10/25 08:00 O2 Del Method Room Air 01/10/25 03:53 FiO2 21 01/09/25 19:52 Allergies Allergy/AdvReac Type Severity Reaction Status Date / Time codeine Allergy Unknown Anaphylaxis Verified 01/10/25 09:47 Latex, Natural Rubber Allergy Unknown SKIN Verified 01/10/25 09:47 IRRITATION nitroglycerin AdvReac Severe Hypotension Verified 01/10/25 09:47 tramadol AdvReac Mild Nausea and Verified 01/10/25 09:47 Vomiting, HEADACHE, DIZZINESS Home Medications ?Medication ?Instructions ?Recorded ?Confirmed ?Type alendronate 70 mg tablet 70 mg PO WEEKLY #13 tabs 11/07/22 01/06/25 Rx ezetimibe 10 mg tablet 10 mg PO DAILY #30 tabs 11/14/22 01/06/25 Rx amiodarone 200 mg tablet 200 mg PO DAILY 04/15/23 01/06/25 History atorvastatin 80 mg tablet 80 mg PO HS 04/15/23 01/06/25 History bisacodyl 10 mg rectal suppository 10 mg RECTAL DAILY PRN Constipation 04/15/23 01/06/25 History (Dulcolax (bisacodyl)) calcium 500 mg (as 1 tablet PO DAILY 04/15/23 01/06/25 History carbonate)-vitamin D3 5 mcg (200 unit) tablet (Oyster Shell Calcium-Vitamin D3) pantoprazole 40 mg tablet,delayed 40 mg PO QAM 04/15/23 01/06/25 History release sertraline 50 mg tablet 50 mg PO DAILY 04/15/23 01/06/25 History apixaban 5 mg tablet (Eliquis) 5 mg PO Q12HR #60 tabs 04/26/23 01/06/25 Rx midodrine 2.5 mg tablet 5 mg (2 x 2.5 mg) PO TID #90 tabs 04/26/23 01/06/25 Rx linaclotide 145 mcg capsule 145 mcg PO DAILY PRN Constipation 07/31/23 01/06/25 Rx (Linzess) #90 caps metoprolol succinate 25 mg 25 mg PO DAILY 06/05/24 01/06/25 History tablet,extended release 24 hr ondansetron 4 mg disintegrating 4 mg PO Q8H PRN nausea and vomiting 06/05/24 01/06/25 History tablet gabapentin 100 mg capsule 200 mg PO TID 08/10/24 01/06/25 History cyanocobalamin (vitamin B-12) 1,000 mcg PO QAM #30 tabs 08/13/24 01/06/25 Rx 1,000 mcg tablet (Vitamin B-12) acetaminophen 500 mg capsule 1,000 mg (2 x 500 mg) PO Q4H PRN 09/06/24 01/06/25 Rx (Mapap (acetaminophen)) pain #100 caps polyethylene glycol 3350 17 gram 25.5 g PO QAM #45 ea 09/23/24 01/06/25 Rx oral powder packet (Miralax) hydrocodone 5 mg-acetaminophen 325 1 tablet PO Q6H PRN Pain Rated 10/15/24 01/06/25 Rx mg tablet 4-10 #30 tabs diclofenac sodium 1 % topical gel 2 g topical TID #300 grams 11/04/24 01/06/25 Rx diclofenac sodium 75 mg 75 mg PO BID #60 tabs 11/08/24 01/06/25 Rx tablet,delayed release calcitonin (salmon) 200 1 spray intranasal (ALT) DAILY 11/16/24 01/06/25 Rx unit/actuation nasal spray #3.7 mL tizanidine 2 mg tablet See Rx Instructions .Route 12/02/24 01/06/25 Rx .COMPLEX #30 tabs Laboratory Tests 01/09/25 01/10/25 18:56 03:36 WBC 6.1 K/mm3 (4.5-10.0) RBC 2.56 L M/mm3 (4.2-5.4) Hgb 7.9 L g/dL (12.0-15.0) Hct 25.9 L % (37.0-47.0) MCV 101.2 H fl (80-100) MCH 30.9 pg (26-34) MCHC 30.5 L g/dl (32-36) RDW 15.4 H % (11.5-14.5) Plt Count 245 k/mm3 (150-375) MPV 10.3 fl (7.4-10.4) Immature Gran % (Auto) 0.8 H % (0-0.5) Neut % (Auto) 59.3 % (45.5-73.1) Lymph % (Auto) 27.1 % (18.3-44.2) [place] % (Auto) 8.8 H % (2.6-8.5) Eos % (Auto) 3.3 % (0-4.4) Baso % (Auto) 0.7 % (0.2-1.2) Lymph # (Auto) 1.66 K/mm3 (0.9-3.2) [place] # (Auto) 0.5 K/mm3 (0.1-0.6) Eos # (Auto) 0.2 K/mm3 (0-0.3) Baso # (Auto) 0.0 K/mm3 (0.0-0.1) Abs Immat Gran (auto) 0.05 H K/mm3 (0.00-0.031) Absolute Neuts (auto) 3.6 K/mm3 (1.3-6.7) Absolute Nucleated RBC 0.000 K/mm3 (0.0-0.012) Nucleated RBC % 0.0 % (0.0-0.2) Sodium 141 mmol/L (137-145) Potassium 3.3 L mmol/L 3.7 mmol/L (3.4-5.0) (3.4-5.0) Chloride 119 H mmol/L (98-107) Carbon Dioxide 16 L mmol/L (22-30) Anion Gap 6 mmol/L (4-12) BUN < 2 L mg/dL (7-17) Creatinine 0.83 mg/dL (0.7-1.0) Estim Creat Clear Calc 44 ml/min Estimated GFR > 60 (59 - ) Glucose 86 mg/dL (65-110) Calcium 8.1 L mg/dL (8.4-10.2) Magnesium 1.9 mg/dL (1.6-2.3) Total Bilirubin 0.3 mg/dL (0.2-1.3) AST 37 H U/L (14-36) ALT 27 U/L (6-35) Alkaline Phosphatase 56 U/L (38-126) Total Protein 4.9 L g/dL (6.3-8.2) Albumin 2.4 L g/dL (3.5-5.1) Patient hx anesthesia problems: none Family hx anesthesia problems: none Results Review: All pre-operative results and documents have been reviewed as part of the pre-operative evaluation. [facility] Past Medical History Medical History UTI (urinary tract infection) Old myocardial infarction (~2012) Peripheral vascular disease, unspecified Pancreatic cyst Hypertrophic cardiomyopathy Apical variant noted on cardiac MRI 08/22/2022 Coronary artery disease Aortic atherosclerosis (~2006) Acute pancreatitis (03/2022) Choledocholithiasis Status post ERCP with post ERCP pancreatitis at [facility] 12/03/2023 Acute hepatitis (11/15/23) Due to medications verses choledocholithiasis Chronic kidney disease Stage III A Chronic anemia Paroxysmal atrial fibrillation History of cardioversion in January 2023 Deep venous thrombosis 1960s Intra-articular fracture of distal end of right radius with volar angulation Close reduction January 2023 Benign positional vertigo Diverticulitis With history of perforation Chronic lower back pain Osteoporosis Hyperlipidemia Cardiorenal syndrome with renal failure Lumbar spinal stenosis Compression fracture of thoracic spine, non-traumatic (2017) T11 Gastro-esophageal reflux disease without esophagitis Occlusion and stenosis of bilateral carotid arteries Chronic idiopathic constipation Surgical History Surgical History History of cataract extraction with lens replacement History of coronary artery bypass graft x 2 (2012) LAWSON to LAD and saphenous vein graft to obtuse marginal History of bowel resection (1992) Due to prior bowel perforation History of cholecystectomy History of total right knee replacement (2017) History of lumbar surgery (1998) Lumbar diskectomy Family History Family History Father Malignant neoplasm of prostate Mother Alzheimer's dementia Sibling Alzheimer's dementia Social History Social History Social History: Surrogate medical decision maker: Storm Lobato, son. Code status: Full code. Smoking status: Never smoker Second hand tobacco smoke exposure: Yes Alcohol intake: never Substance use: never Substance use type: painkillers Do You Feel Safe in your Home?: Yes Lack of Transportation: No Lack of Food: Never True Current Housing: I Have Housing Concerned About Future Housing: No Difficulty Paying Gas/Electric Bills: No Difficulty Paying for Meds: No Currently Unemployed: No Education: High School Diploma/GED Difficulty w/ Childcare or Family Care: No Living arrangements: assisted living Additional living arrangements comments: . She has 3 sons. Ambulates with a walker. Spiritual care concerns: No Agree to blood products: Yes Anes - Eval Final PreProcedure Day of Procedure 01/10/25 09:49 Patient weight: normal Heart: regular rate and rhythm Lungs: decreased breath sounds Airway: Mallampati scale class II Neurological: alert and oriented Last oral intake: >/= 8 hours ASA classification: IV Emergent: no Anesthetic plan: proceed Anesthesia type and monitoring: general GIVS and standard monitoring Results Review: All pre-operative results and documents have been reviewed as part of the pre-operative evaluation. Informed Consent: The patient's anesthetic plan and its attendant risks and benefits were discussed with the patient/family/POA. Questions were solicited and answers provided to the satisfaction of the patient/family/POA.
[2025-01-10] MEDS: LACTATED RINGERS 1,000 ML 150 ML IV CONT (09:52)
[2025-01-10] MEDS: BENZOCAINE (*SP) 60 ML SPRAY CAN (HURRICAINE) 1 SPRAY MUCOUS MEM (10:16)
--- NOTE | 2025-01-10 10:24 | SUR.OPER ---
EGD END 1022 COLONOSCOPY START 102
--- NOTE | 2025-01-10 10:26 | S_PTH ---
PATIENT: Tiera Lobato LOC: [id number] U#:[id number] AGE/SX: 79/F ROOM: 247 RE01/07/[address]: Martin Aponte MD : 1945 BED: 01 DIS: 01/13/2025 SPEC #: [id number] RECD: 01/10/25 11:16 STATUS: SENAIT REQ #: [id number] DUANE: 01/10/25 10:[address]: Tre Weinberg DEPT: [facility] Surgical RECD BY: Annabelle Osborne ENTERED: 01/10/25 11:16 SP TYPE: Surgical OTHR DR: MD Andry Rosales MD Patrick S. Zimmermann, MD Tissues: A - Gastric Biopsy B - Small Bowel Bx C - Colon Biopsy D - Colon Biopsy Procedures: Hematoxylin and Eosin Stain Gross and Microscopic Level 4 H.Pylori
--- NOTE | 2025-01-10 12:07 | PCNFU ---
Nutrition Follow-Up Complete: Moderate protein calorie malnutrition related to inadequate energy intake as evidenced by pt report of poor po intake for greater than 1 month, a significant weight loss of -11% x 2 months, and NFPE findings for moderate subcutaneous fat loss (cheeks) and moderate muscle wasting (temples, clavicle). Goal:diet advanced PO intake 75% Pt progressing towards goal, continue with same goal. Pt current nutrition is Regular, to start today. Nutrition recommendation: add nutrition ice cream cups BID for supplement Last recorded weight is 61.1 kg. Bowel Motility: +BM 01/10 Labs Reviewed: Hgb:7.9, HCT:25.9, Alb:2.4, BUN:2 Meds Noted: protonix Skin: WNL Additional Notes: pt was on clear liquids, upgraded to full liquids with intake 25-75%, NPO this morning for EGD and colonoscopy. Regular diet to start today. Will add nutrition ice cream cups for supplement, noted pt did not want Ensure. Encourage po intake. Monitor diet order, intake, tolerance, wt, labs. Follow up in 3 days.
--- NOTE | 2025-01-10 12:30 | PM.IMPN ---
Progress Note: A&P Assessment and Plan (1) Bloody diarrhea: Code(s): R19.7 - Diarrhea, unspecified Status: Acute (2) CLAUDIA (acute kidney injury): Code(s): N17.9 - Acute kidney failure, unspecified Status: Resolved Plan A 79-year-old female with past medical history atrial fibrillation on Eliquis, CAD status post CABG, GERD, hyperlipidemia, lumbar spinal stenosis, osteoporosis, chronic anemia, CKD. She presents to [facility] ER on 01/06/2025 with the complaint of diarrhea since 01/01/2025. She has not had this issue before. She typically has constipation and takes a stool softener at night and MiraLax in the morning. She has not taken additional doses. She also takes about 1 diclofenac pill per day for arthritic pain in her right leg. She has been taking her Eliquis and all other medications. She has had endoscopy and colonoscopy many years ago and self reports there have been no major abnormal findings. She describes the diarrhea as loose mixed with blood and sometimes fiber/clot. On some days she has 1 episode and some day she has 4. She lives alone in assisted living at [place]. No one she knows has had similar issues. She has not traveled recently. She has had some dry heaving but no vomiting. No fever. No abdominal pain otherwise. No chest pain or shortness of breath. Hemoglobin 9.5. She averages around this for her baseline. INR 1.9. Serum creatinine 2.16. Previous baseline between 1.1 and 1.8. CTA abdomen pelvis performed. No active extravasation. Colon is distended with fluid otherwise unremarkable. She was given 1 L normal saline bolus, Protonix 80 mg IV x1. ----- Bloody diarrhea history suggestive of ischemic colitis. Rule out infectious etiology. Stool studies. GI consulted. Continue IV fluid resuscitation. Ppi b.i.d.. Hold Eliquis. this has now spontaneously resolved. stool studies pending. status post EGD: Normal Status post colonoscopy: Colonic ulcers, diverticulosis without perforation external hemorrhoids. Biopsies were taken. No Eliquis for another 7 days. Could be ischemic / NSAIDs related. No NSAIDs at discharge. CLAUDIA with creatinine up to 2.1. Likely hypovolemia related. Improved with IV resuscitation. Acute on chronic anemia with blood loss. Continue to monitor transfuse to keep hemoglobin more than 7 . transfue one unit of PRBC today as h and h down to 6.7. Post transfusion hemoglobin up to 8.1. Continue to monitor H&H. Coronary artery disease status post CABG Atrial fibrillation on Eliquis and amiodarone and metoprolol GERD Hyperlipidemia Lumbar spinal stenosis Osteoporosis Colonic diverticulosis History of hemorrhoids DVT prophylaxis SCDs Code status full code Subjective Date/time seen: 01/10/25 12:30 Interval history: no overnight events. Planned to get the EGD and colonoscopy today. Review of Systems Review of Systems: All systems reviewed & are unremarkable except as noted in HPI and below Exam Narrative: Constitutional: Generally well appearing, no acute distress Head: Atraumatic, no deformities. Eyes: Pupils equal, round, and reactive to light. Neck: Supple, no tracheal deviation, no JVD. ENMT: Mucous membranes moist Cardiovascular: S1, S2 auscultated. No murmurs, rubs, or gallops. No S3/S4. Normal Distal pulses. No peripheral edema. Respiratory: Lung sounds equal. No wheezes, rales, or rhonchi. Gastrointestinal: Abdomen was soft and non-tender. Non-distended. No rebound or guarding. Genitourinary: Deferred Musculoskeletal: Normal muscle tone and bulk. No obvious deformities or tenderness over extremities. Skin: No rashes. Neurological: Strength 5/5 in extremities. Cranial nerves I-XII grossly intact. Distal sensation intact. Mental Status: Awake, alert and oriented x3. Follows commands Objective Data Vital Signs Vital Signs: Vital Signs - 24 hr 01/09/25 14:00 01/09/25 16:00 01/09/25 16:00 Temperature 98.3 F Pulse Rate 85 71 71 Respiratory Rate 16 Blood Pressure 131/54 L Pulse Oximetry 99 Oxygen Delivery Fraction of Inspired Oxygen 01/09/25 18:00 01/09/25 19:52 01/09/25 20:00 Temperature Pulse Rate 71 73 Respiratory Rate 20 Blood Pressure Pulse Oximetry 97 Oxygen Delivery Room Air Room Air Fraction of Inspired Oxygen 21 01/09/25 20:00 01/09/25 20:53 01/10/25 00:00 Temperature 98.4 F Pulse Rate 74 73 Respiratory Rate 16 Blood Pressure 157/53 H Pulse Oximetry 100 Oxygen Delivery Room Air Fraction of Inspired Oxygen 01/10/25 00:00 01/10/25 00:10 01/10/25 03:53 Temperature 98.2 F Pulse Rate 83 71 Respiratory Rate 16 Blood Pressure 154/69 H Pulse Oximetry 99 Oxygen Delivery Room Air Fraction of Inspired Oxygen 01/10/25 04:00 01/10/25 04:19 01/10/25 08:00 Temperature 98.6 F 97.7 F Pulse Rate 79 76 65 Respiratory Rate 14 18 Blood Pressure 154/71 H 164/66 H Pulse Oximetry 99 100 Oxygen Delivery Fraction of Inspired Oxygen 01/10/25 08:21 01/10/25 09:49 01/10/25 10:42 Temperature 97.5 F L Pulse Rate 67 70 77 Respiratory Rate 20 14 Blood Pressure 181/62 H 111/50 L Pulse Oximetry 99 98 Oxygen Delivery Room Air Room Air Fraction of Inspired Oxygen 01/10/25 10:52 01/10/25 11:02 01/10/25 11:26 Temperature 97.5 F L Pulse Rate 73 68 57 L Respiratory Rate 19 15 18 Blood Pressure 96/48 L 108/58 L 133/54 L Pulse Oximetry 98 99 100 Oxygen Delivery Room Air Room Air Fraction of Inspired Oxygen Intake/Output Intake/Output: Intake & Output 01/07/25 01/08/25 01/09/25 01/10/25 23:59 23:59 23:59 23:59 Intake Total 3995.4 3875 3070 1420 Output Total 702 0609 961 5938 Balance 3293.4 1115 2320 -380 Meds/Results Medications: Active Medications Generic Name Dose Route Start Last Admin Trade Name Freq PRN Reason Stop Dose Admin Acetaminophen 650 mg 01/07/25 05:32 01/08/25 20:35 Acetaminophen 325 Mg Tablet PO 650 mg Q4H PRN Administration Headache Amiodarone HCl 200 mg 01/07/25 09:00 01/10/25 08:21 Amiodarone Hcl 200 Mg Tablet PO 200 mg DAILY AGUS Administration Atorvastatin Calcium 80 mg 01/07/25 21:00 01/09/25 20:58 Atorvastatin 40 Mg Tablet PO 80 mg HS AGUS Administration Diclofenac Sodium 1 applic 01/07/25 09:00 01/10/25 08:22 Diclofenac Sodium 1% 100 Gm Gel (*Bkc) TOPICAL Not Given TID AGUS Gabapentin 200 mg 01/07/25 09:00 01/10/25 08:21 Gabapentin 100 Mg Capsule PO 200 mg TID AGUS Administration Sodium Chloride 1,000 mls @ 75 mls/hr 01/06/25 17:15 01/10/25 01:55 Normal Saline Iv IV CONT 75 mls/hr .[id number] AGUS Administration Pantoprazole Sodium 40 mg 01/07/25 09:00 01/10/25 08:21 Pantoprazole 40 Mg Tablet PO 40 mg QAM AGUS Administration Sertraline HCl 50 mg 01/07/25 09:00 01/10/25 08:21 Sertraline Hcl 50 Mg Tablet PO 50 mg DAILY AGUS Administration Radiology Results: ITS Impressions Abdomen/Pelvis CTA 01/06/25 14:11 IMPRESSION: No active extravasation is identified within the colon to account for patient's presenting symptoms, as detailed above. Labs Labs: Laboratory Results - last 24 hr 01/09/25 01/10/25 18:56 03:36 WBC 6.1 RBC 2.56 L Hgb 7.9 L Hct 25.9 L MCV 101.2 H MCH 30.9 MCHC 30.5 L RDW 15.4 H Plt Count 245 MPV 10.3 Immature Gran % (Auto) 0.8 H Neut % (Auto) 59.3 Lymph % (Auto) 27.1 [place] % (Auto) 8.8 H Eos % (Auto) 3.3 Baso % (Auto) 0.7 Lymph # (Auto) 1.66 [place] # (Auto) 0.5 Eos # (Auto) 0.2 Baso # (Auto) 0.0 Abs Immat Gran (auto) 0.05 H Absolute Neuts (auto) 3.6 Absolute Nucleated RBC 0.000 Nucleated RBC % 0.0 Sodium 141 Potassium 3.3 L 3.7 Chloride 119 H Carbon Dioxide 16 L Anion Gap 6 BUN < 2 L Creatinine 0.83 Estim Creat Clear Calc 44 Estimated GFR > 60 Glucose 86 Calcium 8.1 L Magnesium 1.9 Total Bilirubin 0.3 AST 37 H ALT 27 Alkaline Phosphatase 56 Total Protein 4.9 L Albumin 2.4 L
[2025-01-10] MEDS: ATORVASTATIN 40 MG TABLET 80 MG PO (20:57)
[2025-01-11] VITALS (11 sets, daily range): BP systolic 135–162; BP diastolic 52–67; PULSE 62–80; RESP 12–18; TEMP 36.2–36.9; O2SAT 98–100
[2025-01-11 05:20] LABS: Hematocrit 26.1 % (37.0-47.0); Hemoglobin 8.1 g/dL (12.0-15.0); Immature Granulocyte Percent A 0.5 % (0-0.5); Lymphocytes Absolute Auto 1.28 K/mm3 (0.9-3.2); Mean Corpuscular HGB Conc 31.0 g/dl (32-36); Mean Corpuscular Hemoglobin 30.7 pg (26-34); Mean Corpuscular Volume 98.9 fl (80-100); Nucleated Red Blood Cells Absolute Auto 0.000 K/mm3 (0.0-0.012); Nucleated Red Blood Cells Perc 0.0 % (0.0-0.2); Platelet Count Result 254 k/mm3 (150-375); Red Blood Count 2.64 M/mm3 (4.2-5.4); White Blood Count 6.2 K/mm3 (4.5-10.0)
[2025-01-11 05:44] LABS: Alanine Aminotransferase 31 U/L (6-35); Albumin Level 2.7 g/dL (3.5-5.1); Alkaline Phosphatase 69 U/L (38-126); Anion Gap 4 mmol/L (4-12); Aspartate Amino Transferase 40 U/L (14-36); Bilirubin,Total 0.6 mg/dL (0.2-1.3); Blood Urea Nitrogen 3 mg/dL (7-17); Calcium 8.4 mg/dL (8.4-10.2); Carbon Dioxide 22 mmol/L (22-30); Chloride 110 mmol/L (98-107); Estimated CRCL calculation 43 ml/min; Estimated Glomerular Filt Rate > 60; Glucose 85 mg/dL (65-110); Magnesium 1.7 mg/dL (1.6-2.3); Potassium 3.1 mmol/L (3.4-5.0); Sodium 136 mmol/L (137-145); Total Protein 5.2 g/dL (6.3-8.2)
[2025-01-11] MEDS: SERTRALINE HCL 50 MG TABLET PO (08:49)
[2025-01-11] MEDS: PANTOPRAZOLE 40 MG TABLET PO (08:49)
[2025-01-11] MEDS: AMIODARONE HCL 200 MG TABLET PO (08:49)
[2025-01-11] MEDS: GABAPENTIN 100 MG CAPSULE 200 MG PO ×3 (08:49→16:56)
[2025-01-11] MEDS: POTASSIUM CHLORIDE 20 MEQ PACKET (FOR LIQUID) 40 MEQ PO (10:48)
--- NOTE | 2025-01-11 11:43 | P.PNIM_ITS ---
Progress Note: A&P Assessment and Plan (1) Bloody diarrhea: Code(s): R19.7 - Diarrhea, unspecified Status: Acute (2) CLAUDIA (acute kidney injury): Code(s): N17.9 - Acute kidney failure, unspecified Status: Resolved Plan A 79-year-old female with past medical history atrial fibrillation on Eliquis, CAD status post CABG, GERD, hyperlipidemia, lumbar spinal stenosis, osteoporosis, chronic anemia, CKD. She presents to [facility] ER on 01/06/2025 with the complaint of diarrhea since 01/01/2025. She has not had this issue before. She typically has constipation and takes a stool softener at night and MiraLax in the morning. She has not taken additional doses. She also takes about 1 diclofenac pill per day for arthritic pain in her right leg. She has been taking her Eliquis and all other medications. She has had endoscopy and colonoscopy many years ago and self reports there have been no major abnormal findings. She describes the diarrhea as loose mixed with blood and sometimes fiber/clot. On some days she has 1 episode and some day she has 4. She lives alone in assisted living at [place]. No one she knows has had similar issues. She has not traveled recently. She has had some dry heaving but no vomiting. No fever. No abdominal pain otherwise. No chest pain or shortness of breath. Hemoglobin 9.5. She averages around this for her baseline. INR 1.9. Serum creatinine 2.16. Previous baseline between 1.1 and 1.8. CTA abdomen pelvis performed. No active extravasation. Colon is distended with fluid otherwise unremarkable. She was given 1 L normal saline bolus, Protonix 80 mg IV x1. ----- Bloody diarrhea history suggestive of ischemic colitis. Rule out infectious etiology. Stool studies. GI consulted. Continue IV fluid resuscitation. Ppi b.i.d.. Hold Eliquis. this has now spontaneously resolved. stool studies Currentlypending. status post EGD: Normal . Will Give a trial of adriel styramine. Fecal calprotectin is pending. Status post colonoscopy: Colonic ulcers, diverticulosis without perforation external hemorrhoids. Biopsies were taken. No Eliquis for another 7 days. Cou ld be ischemic / NSAIDs related. No NSAIDs at discharge. CLAUDIA with creatinine up to 2.1. Likely hypovolemia related. Improved with IV resuscitation. Acute on chronic anemia with blood loss. Continue to monitor transfuse to keep hemoglobin more than 7 . transfue one unit of PRBC today as h and h down to 6.7. Post transfusion hemoglobin up to 8.1. Continue to monitor H&H. H&H remained stable now. Coronary artery disease status post CABG Atrial fibrillation on Eliquis Prior to admission and amiodarone and metoprolol GERD Hyperlipidemia Lumbar spinal stenosis Osteoporosis Colonic diverticulosis History of hemorrhoids DVT prophylaxis SCDs Code status full code Disposition: PT OT to see. Await improvement in diarrhea Subjective Date/time seen: 01/11/25 11:43 Interval history: no overnight events. Still continues to have watery bowel movement. Frequency has slowed down. No nausea vomiting. Feels weak. Review of Systems Review of Systems: All systems reviewed & are unremarkable except as noted in HPI and below Exam Narrative: Constitutional: Generally well appearing, no acute distress Head: Atraumatic, no deformities. Eyes: Pupils equal, round, and reactive to light. Neck: Supple, no tracheal deviation, no JVD. ENMT: Mucous membranes moist Cardiovascular: S1, S2 auscultated. No murmurs, rubs, or gallops. No S3/S4. Normal Distal pulses. No peripheral edema. Respiratory: Lung sounds equal. No wheezes, rales, or rhonchi. Gastrointestinal: Abdomen was soft and non-tender. Non-distended. No rebound or guarding. Genitourinary: Deferred Musculoskeletal: Normal muscle tone and bulk. No obvious deformities or tenderness over extremities. Skin: No rashes. Neurological: Strength 5/5 in extremities. Cranial nerves I-XII grossly intact. Distal sensation intact. Mental Status: Awake, alert and oriented x3. Follows commands Objective Data Vital Signs Vital Signs: Vital Signs - 24 hr 01/10/25 12:00 01/10/25 14:00 01/10/25 16:00 Temperature Pulse Rate 59 L 64 87 Respiratory Rate Blood Pressure Pulse Oximetry Oxygen Delivery Fraction of Inspired Oxygen 01/10/25 16:00 01/10/25 17:30 01/10/25 20:00 Temperature 98.2 F 97.6 F Pulse Rate 70 65 Respiratory Rate 16 18 Blood Pressure 149/57 H 158/58 H Pulse Oximetry 99 100 Oxygen Delivery Room Air Fraction of Inspired Oxygen 01/10/25 20:00 01/10/25 20:40 01/11/25 00:00 Temperature 97.4 F L Pulse Rate 68 66 67 Respiratory Rate 18 Blood Pressure 163/68 H Pulse Oximetry 98 Oxygen Delivery Fraction of Inspired Oxygen 01/11/25 01:13 01/11/25 04:00 01/11/25 05:27 Temperature 97.2 F L Pulse Rate 68 64 Respiratory Rate 18 Blood Pressure 153/63 H Pulse Oximetry 98 99 Oxygen Delivery Room Air Fraction of Inspired Oxygen 21 01/11/25 08:00 01/11/25 08:00 01/11/25 08:49 Temperature Pulse Rate 62 75 Respiratory Rate Blood Pressure Pulse Oximetry 99 Oxygen Delivery Room Air Fraction of Inspired Oxygen Intake/Output Intake/Output: Intake & Output 01/08/25 01/09/25 01/10/25 01/11/25 23:59 23:59 23:59 23:59 Intake Total 3875 3070 2601.3 590 Output Total 9712 284 0904 Balance 2175 2320 -948.7 590 Meds/Results Medications: Active Medications Generic Name Dose Route Start Last Admin Trade Name Freq PRN Reason Stop Dose Admin Acetaminophen 650 mg 01/07/25 05:32 01/08/25 20:35 Acetaminophen 325 Mg Tablet PO 650 mg Q4H PRN Administration Headache Amiodarone HCl 200 mg 01/07/25 09:00 01/11/25 08:49 Amiodarone Hcl 200 Mg Tablet PO 200 mg DAILY AGUS Administration Atorvastatin Calcium 80 mg 01/07/25 21:00 01/10/25 20:57 Atorvastatin 40 Mg Tablet PO 80 mg HS AGUS Administration Diclofenac Sodium 1 applic 01/07/25 09:00 01/10/25 14:52 Diclofenac Sodium 1% 100 Gm Gel (*Bkc) TOPICAL Not Given TID AGUS Gabapentin 200 mg 01/07/25 09:00 01/11/25 08:49 Gabapentin 100 Mg Capsule PO 200 mg TID AGUS Administration Pantoprazole Sodium 40 mg 01/07/25 09:00 01/11/25 08:49 Pantoprazole 40 Mg Tablet PO 40 mg QAM AGUS Administration Sertraline HCl 50 mg 01/07/25 09:00 01/11/25 08:49 Sertraline Hcl 50 Mg Tablet PO 50 mg DAILY AGUS Administration Radiology Results: ITS Impressions Abdomen/Pelvis CTA 01/06/25 14:11 IMPRESSION: No active extravasation is identified within the colon to account for patient's presenting symptoms, as detailed above. Labs Labs: Laboratory Results - last 24 hr 01/07/25 01/11/25 08:56 04:55 WBC 6.2 RBC 2.64 L Hgb 8.1 L Hct 26.1 L MCV 98.9 MCH 30.7 MCHC 31.0 L RDW 14.9 H Plt Count 254 MPV 10.0 Immature Gran % (Auto) 0.5 Neut % (Auto) 66.1 Lymph % (Auto) 20.7 [place] % (Auto) 8.2 Eos % (Auto) 3.9 Baso % (Auto) 0.6 Lymph # (Auto) 1.28 [place] # (Auto) 0.5 Eos # (Auto) 0.2 Baso # (Auto) 0.0 Abs Immat Gran (auto) 0.03 Absolute Neuts (auto) 4.1 Absolute Nucleated RBC 0.000 Nucleated RBC % 0.0 Sodium 136 L Potassium 3.1 L Chloride 110 H Carbon Dioxide 22 Anion Gap 4 BUN 3 L Creatinine 0.84 Estim Creat Clear Calc 43 Estimated GFR > 60 Glucose 85 Calcium 8.4 Magnesium 1.7 Erythropoietin 18.7 H Total Bilirubin 0.6 AST 40 H ALT 31 Alkaline Phosphatase 69 Total Protein 5.2 L Albumin 2.7 L
--- NOTE | 2025-01-11 14:26 | WPDANESPN ---
Anes - Prog Note Post-Op Date/Time: 01/11/25 14:26 Cardiovascular status: normal Respiratory status: normal Airway patency: baseline Mental status: baseline Post-Op hydration status: normal Vital Signs: Last Vital Signs Temp 97.9 F 01/11/25 13:58 Pulse 78 01/11/25 13:58 Resp 12 01/11/25 13:58 BP 162/67 H 01/11/25 13:58 Pulse Ox 100 01/11/25 13:58 O2 Del Method Room Air 01/11/25 08:00 FiO2 21 01/11/25 01:13 Pain Score (VAS): 0/10 I/O: Intake & Output 01/10/25 01/11/25 01/11/25 23:59 07:59 15:59 Intake Total 600 350 240 Output Total 1750 Balance -1150 350 240 Laboratory Tests 01/11/25 04:55 01/11/25 04:55 01/07/25 01/11/25 08:56 04:55 WBC 6.2 RBC 2.64 L Hgb 8.1 L Hct 26.1 L MCV 98.9 MCH 30.7 MCHC 31.0 L RDW 14.9 H Plt Count 254 MPV 10.0 Immature Gran % (Auto) 0.5 Neut % (Auto) 66.1 Lymph % (Auto) 20.7 [place] % (Auto) 8.2 Eos % (Auto) 3.9 Baso % (Auto) 0.6 Lymph # (Auto) 1.28 [place] # (Auto) 0.5 Eos # (Auto) 0.2 Baso # (Auto) 0.0 Abs Immat Gran (auto) 0.03 Absolute Neuts (auto) 4.1 Absolute Nucleated RBC 0.000 Nucleated RBC % 0.0 Sodium 136 L Potassium 3.1 L Chloride 110 H Carbon Dioxide 22 Anion Gap 4 BUN 3 L Creatinine 0.84 Estim Creat Clear Calc 43 Estimated GFR > 60 Glucose 85 Calcium 8.4 Magnesium 1.7 Erythropoietin 18.7 H Total Bilirubin 0.6 AST 40 H ALT 31 Alkaline Phosphatase 69 Total Protein 5.2 L Albumin 2.7 L Microbiology 01/08/25 18:29 Stool Shiga Toxin (EIA) - Preliminary Post-procedural complaints: none Patient Feedback: Patient satisfied with anesthetic care. Other Findings: Anemia
[2025-01-11] MEDS: CHOLESTYRAMINE LIGHT 4 GM POWD.PACK PO (17:40)
[2025-01-11] MEDS: ATORVASTATIN 40 MG TABLET 80 MG PO (20:36)
[2025-01-12] VITALS (11 sets, daily range): BP systolic 122–151; BP diastolic 58–63; PULSE 75–91; RESP 16–20; TEMP 36.4–36.9; O2SAT 96–97
[2025-01-12 05:09] LABS: Hematocrit 24.3 % (37.0-47.0); Hemoglobin 7.6 g/dL (12.0-15.0); Immature Granulocyte Percent A 0.6 % (0-0.5); Lymphocytes Absolute Auto 1.64 K/mm3 (0.9-3.2); Mean Corpuscular HGB Conc 31.3 g/dl (32-36); Mean Corpuscular Hemoglobin 31.4 pg (26-34); Mean Corpuscular Volume 100.4 fl (80-100); Nucleated Red Blood Cells Absolute Auto 0.000 K/mm3 (0.0-0.012); Nucleated Red Blood Cells Perc 0.0 % (0.0-0.2); Platelet Count Result 261 k/mm3 (150-375); Red Blood Count 2.42 M/mm3 (4.2-5.4); White Blood Count 8.4 K/mm3 (4.5-10.0)
[2025-01-12 05:35] LABS: Anion Gap 4 mmol/L (4-12); Blood Urea Nitrogen 4 mg/dL (7-17); Calcium 8.5 mg/dL (8.4-10.2); Carbon Dioxide 20 mmol/L (22-30); Chloride 112 mmol/L (98-107); Estimated CRCL calculation 42 ml/min; Estimated Glomerular Filt Rate > 60; Glucose 87 mg/dL (65-110); Potassium 3.6 mmol/L (3.4-5.0); Sodium 136 mmol/L (137-145)
--- NOTE | 2025-01-12 08:10 | P.PNIM_ITS ---
Progress Note: A&P Assessment and Plan (1) Bloody diarrhea: Code(s): R19.7 - Diarrhea, unspecified Status: Acute (2) CLAUDIA (acute kidney injury): Code(s): N17.9 - Acute kidney failure, unspecified Status: Resolved Plan A 79-year-old female with past medical history atrial fibrillation on Eliquis, CAD status post CABG, GERD, hyperlipidemia, lumbar spinal stenosis, osteoporosis, chronic anemia, CKD. She presents to [facility] ER on 01/06/2025 with the complaint of diarrhea since 01/01/2025. She has not had this issue before. She typically has constipation and takes a stool softener at night and MiraLax in the morning. She has not taken additional doses. She also takes about 1 diclofenac pill per day for arthritic pain in her right leg. She has been taking her Eliquis and all other medications. She has had endoscopy and colonoscopy many years ago and self reports there have been no major abnormal findings. She describes the diarrhea as loose mixed with blood and sometimes fiber/clot. On some days she has 1 episode and some day she has 4. She lives alone in assisted living at [place]. No one she knows has had similar issues. She has not traveled recently. She has had some dry heaving but no vomiting. No fever. No abdominal pain otherwise. No chest pain or shortness of breath. Hemoglobin 9.5. She averages around this for her baseline. INR 1.9. Serum creatinine 2.16. Previous baseline between 1.1 and 1.8. CTA abdomen pelvis performed. No active extravasation. Colon is distended with fluid otherwise unremarkable. She was given 1 L normal saline bolus, Protonix 80 mg IV x1. ----- Bloody diarrhea history suggestive of ischemic colitis. Rule out infectious etiology. Stool studies. GI consulted. Continue IV fluid resuscitation. Ppi b.i.d.. Hold Eliquis. this has now spontaneously resolved. stool studies Currentlypending. status post EGD: Normal . Will Give a trial of adriel styramine. Fecal calprotectin is pending. Status post colonoscopy: Colonic ulcers, diverticulosis without perforation external hemorrhoids. Biopsies were taken. No Eliquis for another 7 days. Cou ld be ischemic / NSAIDs related. No NSAIDs at discharge. CLAUDIA with creatinine up to 2.1. Likely hypovolemia related. Improved with IV resuscitation. Acute on chronic anemia with blood loss. Continue to monitor transfuse to keep hemoglobin more than 7 . transfue one unit of PRBC today as h and h down to 6.7. Post transfusion hemoglobin up to 8.1. Continue to monitor H&H. H&H remained stable now. Coronary artery disease status post CABG Atrial fibrillation on Eliquis Prior to admission and amiodarone and metoprolol GERD Hyperlipidemia Lumbar spinal stenosis Osteoporosis Colonic diverticulosis History of hemorrhoids DVT prophylaxis SCDs Code status full code Disposition: PT OT to see. Await improvement in diarrhea Subjective Date/time seen: 01/12/25 08:10 Interval history: diarrhea has slowed down. last BM yesterday am. but still watery. patient report s some left lower abdominal discomfort since the colonoscopy. no fever, chills. awaiting PT ot evaluation Review of Systems Review of Systems: All systems reviewed & are unremarkable except as noted in HPI and below Exam Narrative: Constitutional: Generally well appearing, no acute distress Head: Atraumatic, no deformities. Eyes: Pupils equal, round, and reactive to light. Neck: Supple, no tracheal deviation, no JVD. ENMT: Mucous membranes moist Cardiovascular: S1, S2 auscultated. No murmurs, rubs, or gallops. No S3/S4. Normal Distal pulses. No peripheral edema. Respiratory: Lung sounds equal. No wheezes, rales, or rhonchi. Gastrointestinal: Abdomen was soft and non-tender. Non-distended. No rebound or guarding. Genitourinary: Deferred Musculoskeletal: Normal muscle tone and bulk. No obvious deformities or tenderness over extremities. Skin: No rashes. Neurological: Strength 5/5 in extremities. Cranial nerves I-XII grossly intact. Distal sensation intact. Mental Status: Awake, alert and oriented x3. Follows commands Objective Data Vital Signs Vital Signs: Vital Signs - 24 hr 01/11/25 08:49 01/11/25 12:00 01/11/25 13:58 Temperature 97.9 F Pulse Rate 75 71 78 Respiratory Rate 12 Blood Pressure 162/67 H Pulse Oximetry 100 Oxygen Delivery 01/11/25 16:00 01/11/25 20:00 01/11/25 20:17 Temperature 98.5 F Pulse Rate 78 80 77 Respiratory Rate 16 Blood Pressure 135/52 L Pulse Oximetry 98 Oxygen Delivery 01/11/25 20:30 01/12/25 00:00 01/12/25 04:00 Temperature Pulse Rate 76 75 Respiratory Rate Blood Pressure Pulse Oximetry Oxygen Delivery Room Air 01/12/25 04:24 Temperature 98.5 F Pulse Rate 76 Respiratory Rate 20 Blood Pressure 150/63 H Pulse Oximetry 97 Oxygen Delivery Intake/Output Intake/Output: Intake & Output 01/09/25 01/10/25 01/11/25 01/12/25 23:59 23:59 23:59 23:59 Intake Total 3070 2601.3 2150 400 Output Total 750 3550 Balance 2320 -948.7 2150 400 Meds/Results Medications: Active Medications Generic Name Dose Route Start Last Admin Trade Name Freq PRN Reason Stop Dose Admin Acetaminophen 650 mg 01/07/25 05:32 01/08/25 20:35 Acetaminophen 325 Mg Tablet PO 650 mg Q4H PRN Administration Headache Amiodarone HCl 200 mg 01/07/25 09:00 01/11/25 08:49 Amiodarone Hcl 200 Mg Tablet PO 200 mg DAILY AGUS Administration Atorvastatin Calcium 80 mg 01/07/25 21:00 01/11/25 20:36 Atorvastatin 40 Mg Tablet PO 80 mg HS AGUS Administration Cholestyramine Resin 4 gm 01/11/25 18:00 01/11/25 17:40 Cholestyramine Light 4 Gm Powd.Pack PO 4 gm BID@1000,1800 AGUS Administration Diclofenac Sodium 1 applic 01/07/25 09:00 01/11/25 16:33 Diclofenac Sodium 1% 100 Gm Gel (*Bkc) TOPICAL Not Given TID AGUS Gabapentin 200 mg 01/07/25 09:00 01/11/25 16:56 Gabapentin 100 Mg Capsule PO 200 mg TID AGUS Administration Pantoprazole Sodium 40 mg 01/07/25 09:00 01/11/25 08:49 Pantoprazole 40 Mg Tablet PO 40 mg QAM AGUS Administration Sertraline HCl 50 mg 01/07/25 09:00 01/11/25 08:49 Sertraline Hcl 50 Mg Tablet PO 50 mg DAILY AGUS Administration Radiology Results: ITS Impressions Abdomen/Pelvis CTA 01/06/25 14:11 IMPRESSION: No active extravasation is identified within the colon to account for patient's presenting symptoms, as detailed above. Labs Labs: Laboratory Results - last 24 hr 01/12/25 01/12/25 04:24 04:25 WBC 8.4 RBC 2.42 L Hgb 7.6 L Hct 24.3 L MCV 100.4 H MCH 31.4 MCHC 31.3 L RDW 14.8 H Plt Count 261 MPV 10.3 Immature Gran % (Auto) 0.6 H Neut % (Auto) 69.0 Lymph % (Auto) 19.5 [place] % (Auto) 8.0 Eos % (Auto) 2.3 Baso % (Auto) 0.6 Lymph # (Auto) 1.64 [place] # (Auto) 0.7 H Eos # (Auto) 0.2 Baso # (Auto) 0.1 Abs Immat Gran (auto) 0.05 H Absolute Neuts (auto) 5.8 Absolute Nucleated RBC 0.000 Nucleated RBC % 0.0 Sodium 136 L Potassium 3.6 Chloride 112 H Carbon Dioxide 20 L Anion Gap 4 BUN 4 L Creatinine 0.86 Estim Creat Clear Calc 42 Estimated GFR > 60 Glucose 87 Calcium 8.5
[2025-01-12] MEDS: PANTOPRAZOLE 40 MG TABLET PO (09:49)
[2025-01-12] MEDS: AMIODARONE HCL 200 MG TABLET PO (09:49)
[2025-01-12] MEDS: SERTRALINE HCL 50 MG TABLET PO (09:50)
[2025-01-12] MEDS: GABAPENTIN 100 MG CAPSULE 200 MG PO ×3 (09:51→16:21)
--- NOTE | 2025-01-12 09:53 | PCPTNOTE ---
Spoke with MAMTA Fraire to remove bedrest orders. Will notify nursing.
[2025-01-12] MEDS: CHOLESTYRAMINE LIGHT 4 GM POWD.PACK PO ×2 (10:59→19:33)
[2025-01-12] MEDS: ACETAMINOPHEN 325 MG TABLET 650 MG PO (17:41)
[2025-01-12] MEDS: ATORVASTATIN 40 MG TABLET 80 MG PO (21:07)
[2025-01-13] VITALS (7 sets, daily range): BP systolic 143; BP diastolic 67; PULSE 73–90; RESP 20; TEMP 36.6; O2SAT 98
[2025-01-13] MEDS: PANTOPRAZOLE 40 MG TABLET PO (08:39)
[2025-01-13] MEDS: SERTRALINE HCL 50 MG TABLET PO (08:39)
[2025-01-13] MEDS: GABAPENTIN 100 MG CAPSULE 200 MG PO ×2 (08:39→12:39)
[2025-01-13] MEDS: AMIODARONE HCL 200 MG TABLET PO (08:39)
[2025-01-13] MEDS: METOPROLOL SUCCINATE EXT REL 25 MG TABCR PO (10:53)
--- NOTE | 2025-01-13 12:43 | PM.DS ---
DS: Admitting Diagnosis Discharge Date 01/13/25 Admitting Diagnosis Diarrhea, Gi bleeding lower DS: Discharge Diagnosis Discharge Diagnosis (1) Bloody diarrhea: Code(s): R19.7 - Diarrhea, unspecified Status: Acute (2) CLAUDIA (acute kidney injury): Code(s): N17.9 - Acute kidney failure, unspecified Status: Resolved Plan . ----- Bloody diarrhea history suggestive of ischemic colitis. Rule out infectious etiology. Stool studies. GI consulted. Continue IV fluid resuscitation. Ppi b.i.d.. Hold Eliquis. this has now spontaneously resolved. status post EGD: Normal . Status post colonoscopy: Colonic ulcers, diverticulosis without perforation external hemorrhoids. Biopsies were taken. No Eliquis for another 7 days. Could be ischemic / NSAIDs related. No NSAIDs at discharge. CLAUDIA with creatinine up to 2.1. Likely hypovolemia related. Improved with IV resuscitation. Acute on chronic anemia with blood loss. Continue to monitor transfuse to keep hemoglobin more than 7 . Coronary artery disease status post CABG Atrial fibrillation on Eliquis Prior to admission and amiodarone and metoprolol GERD Hyperlipidemia Lumbar spinal stenosis Osteoporosis Colonic diverticulosis History of hemorrhoids DVT prophylaxis SCDs Code status full code Disposition: DS: Summary Hospital Course Hospital Course: per HPI A 79-year-old female with past medical history atrial fibrillation on Eliquis, CAD status post CABG, GERD, hyperlipidemia, lumbar spinal stenosis, osteoporosis, chronic anemia, CKD. She presents to [facility] ER on 01/06/2025 with the complaint of diarrhea since 01/01/2025. She has not had this issue before. She typically has constipation and takes a stool softener at night and MiraLax in the morning. She has not taken additional doses. She also takes about 1 diclofenac pill per day for arthritic pain in her right leg. She has been taking her Eliquis and all other medications. She has had endoscopy and colonoscopy many years ago and self reports there have been no major abnormal findings. She describes the diarrhea as loose mixed with blood and sometimes fiber/clot. On some days she has 1 episode and some day she has 4. She lives alone in assisted living at [place]. No one she knows has had similar issues. She has not traveled recently. She has had some dry heaving but no vomiting. No fever. No abdominal pain otherwise. No chest pain or shortness of breath. Hemoglobin 9.5. She averages around this for her baseline. INR 1.9. Serum creatinine 2.16. Previous baseline between 1.1 and 1.8. CTA abdomen pelvis performed. No active extravasation. Colon is distended with fluid otherwise unremarkable. She was given 1 L normal saline bolus, Protonix 80 mg IV x1. 01/13/25 Underwent EGD which was unremarkable. Colonoscopy showed Colonic ulcers, diverticulosis without perforation external hemorrhoids. Biopsies were taken. No Eliquis for another 7 days. Could be ischemic / NSAIDs related. No NSAIDs at discharge Patient was seen and examined at bedside. she is feeling better. her diarrhea and GI bleed improved. denies any chest pain, SOB. Had tachy cardia overnight. resumed Coreg. continue amiodarone Status at Discharge Overall status at discharge: patient is progressing back to baseline Time Spent with Patient Time attestation: Total time spent providing and/or coordinating discharge services: Time spent: Greater than 30 minutes Exam Narrative: Constitutional: Generally well appearing, no acute distress Head: Atraumatic, no deformities. Eyes: Pupils equal, round, and reactive to light. Neck: Supple, no tracheal deviation, no JVD. ENMT: Mucous membranes moist Cardiovascular: S1, S2 auscultated. No murmurs, rubs, or gallops. No S3/S4. Normal Distal pulses. No peripheral edema. Respiratory: Lung sounds equal. No wheezes, rales, or rhonchi. Gastrointestinal: Abdomen was soft and non-tender. Non-distended. No rebound or guarding. Genitourinary: Deferred Musculoskeletal: Normal muscle tone and bulk. No obvious deformities or tenderness over extremities. Skin: No rashes. Neurological: Strength 5/5 in extremities. Cranial nerves I-XII grossly intact. Distal sensation intact. Mental Status: Awake, alert and oriented x3. Follows commands Const: General: comfortable and no acute distress Other: A&O x3 HENMT: Mouth: Yes moist mucous membranes Eyes: Pupils: Equal, round and reactive pupils present Neck: Neck: supple Resp: Effort & Inspection: normal respiratory effort Auscultation: clear to auscultation bilaterally Cardio: Rate: regular rate Rhythm: regular rhythm GI: Inspection: non-distended Auscultation: normal bowel sounds : General: Yes bladder normal to palpation Bimanual exam- vagina & uterus: bladder normal to palpation Neuro: Cranial nerves: Yes Equal, round and reactive pupils present Motor exam (neuro): 5/5 motor strength present throughout Extrem: General: no edema DS: Data Data Completed and Pending Completed studies during hospitalization: Pending at discharge 01/10/25 10:26 Surgical [PTH] Routine Surgical [PTH] Routine Labs on day of discharge: Preliminary micro results at discharge 01/08/25 18:29 Ova and Parasites - Preliminary Stool 01/08/25 18:29 Shiga Toxin (EIA) - Preliminary Stool Discharge Plan Discharge Attending physician on discharge: Martin Aponte Consulting providers: Andry De Jesus Discharging Clinician: Martin Aponte Patient Disposition: NH Longterm/Asst Living Activity: as tolerated Diet: as tolerated and heart healthy Discharge Instructions: Please check your blood pressure and heart rate regularly and report to the PCP Hold Eliquis for four more days Stop taking NSaids including Diclofenac Follow with calling Gi clinic if they did not call you in 7 days. follow with repeat blood test in 2-3 days and report to the PCP Patient Instructions: Antibiotic Form, Chest Pain (GEN) Patient Language: Tanzanian Stand Alone Forms: General Discharge Information Follow-up/Referrals: Andry De Jesus MD [Physician] - Call for Appointment Cristian Ling MD [Primary Care Provider] - 1 Week Discharge Medications: Continued acetaminophen [Mapap (acetaminophen)] 500 mg capsule 1,000 mg PO Q4H PRN (Reason: pain) Qty: 100 5RF Rx Instructions: Can take up to 4 times a day amiodarone 200 mg Tablet 200 mg PO DAILY bisacodyl [Dulcolax (bisacodyl)] 10 mg Suppository 10 mg RECTAL DAILY PRN (Reason: Constipation) pantoprazole 40 mg Tablet,Delayed Release (Dr/Ec) 40 mg PO QAM sertraline 50 mg Tablet 50 mg PO DAILY calcium carbonate-vitamin D3 [Oyster Shell Calcium-Vit D3] 500 mg-5 mcg (200 unit) Tablet 1 tablet PO DAILY atorvastatin 80 mg tablet 80 mg PO HS midodrine 2.5 mg Tablet 5 mg PO TID Qty: 90 0RF metoprolol succinate 25 mg tablet extended release 24 hr 25 mg PO DAILY ondansetron 4 mg tablet,disintegrating 4 mg PO Q8H PRN (Reason: nausea and vomiting) gabapentin 100 mg capsule 200 mg PO TID Patient Comments: only takes once a day in morning cyanocobalamin (vitamin B-12) [Vitamin B-12] 1,000 mcg Tablet 1,000 mcg PO QAM Qty: 30 1RF alendronate 70 mg tablet 70 mg PO WEEKLY Qty: 13 2RF Rx Instructions: Every Friday ezetimibe 10 mg tablet 10 mg PO DAILY Qty: 30 5RF Linzess 145 mcg capsule 145 mcg PO DAILY PRN (Reason: Constipation) Qty: 90 0RF Patient Comments: takes as needed polyethylene glycol 3350 [Miralax] 17 gram powder in packet 25.5 g PO QAM Qty: 45 4RF hydrocodone-acetaminophen 5-325 mg tablet 1 tablet PO Q6H PRN (Reason: Pain Rated 4-10) Qty: 30 0RF diclofenac sodium 1 % gel 2 g TOPICAL TID Qty: 300 3RF calcitonin (salmon) 200 unit/actuation spray,non-aerosol 1 spray intranasal (ALT) DAILY Qty: 3.7 1RF tizanidine 2 mg tablet See Rx Instructions .ROUTE .COMPLEX Qty: 30 0RF Dose Instruction: TAKE 1 TABLET BY MOUTH FOUR TIMES DAILY NEEDED FOR MUSCLE SPASMS Rx Instructions: TAKE 1 TABLET BY MOUTH FOUR TIMES DAILY NEEDED FOR MUSCLE SPASMS Held Eliquis 5 mg Tablet 5 mg PO Q12HR Qty: 60 0RF Hold Instructions: Resume on 01/17/25. Discontinued diclofenac sodium 75 mg tablet,delayed release (DR/EC) 75 mg PO BID Qty: 60 5RF Other Ambulatory Orders: Basic Metabolic Panel (Routine) Timeframe: 2 Days Location: Determined by Patient Ordered By: Martin Aponte Complete Blood Count no Diff (Routine) Timeframe: 2 Days Location: Determined by Patient Ordered By: Martin Aponte Date of admission: 01/07/25 10:22 Primary Care Provider: Cristian Ling Admitting Provider: Gricelda Gonzales Attending physician on admission: Gricelda Gonzales Condition: Stable
== END 2025-01-13 15:15 | DRG 394 ==
LOC: ANHED 17:14 → ANHIMU 17:45 → ANH2MED 01-10 17:14
PROVIDERS: Emergency Medicine; General Practice; Internal Medicine; Internal Medicine Gastroenterology; Nurse Practitioner Family; Admitting Provider Family Medicine; Emergency Provider Emergency Medicine; PCP Family Medicine Adolescent Medicine; Visit Provider Internal Medicine
PROC: 0DJ08ZZ Inspection of Upper Intestinal Tract, Via Natural or Artificial Opening Endoscopic (ICD-10-PCS; CPT 45378; principal; 2025-01-10 14:00)
DX: K55.039 Acute (reversible) ischemia of large intestine, extent unspecified (principal); D62 Acute posthemorrhagic anemia; N17.9 Acute kidney failure, unspecified; K92.1 Melena; I43 Cardiomyopathy in diseases classified elsewhere; K63.3 Ulcer of intestine; T39.395A Adverse effect of other nonsteroidal anti-inflammatory drugs [NSAID], initial encounter; E86.1 Hypovolemia; K57.30 Diverticulosis of large intestine without perforation or abscess without bleeding; K21.9 Gastro-esophageal reflux disease without esophagitis; E78.5 Hyperlipidemia, unspecified; M48.061 Spinal stenosis, lumbar region without neurogenic claudication; I25.10 Atherosclerotic heart disease of native coronary artery without angina pectoris; M81.0 Age-related osteoporosis without current pathological fracture; K64.4 Residual hemorrhoidal skin tags; I73.9 Peripheral vascular disease, unspecified; I12.9 Hypertensive chronic kidney disease with stage 1 through stage 4 chronic kidney disease, or unspecified chronic kidney disease; N18.31 Chronic kidney disease, stage 3a; D50.9 Iron deficiency anemia, unspecified; D51.9 Vitamin B12 deficiency anemia, unspecified; I48.0 Paroxysmal atrial fibrillation; Z95.1 Presence of aortocoronary bypass graft; Z79.01 Long term (current) use of anticoagulants; I25.2 Old myocardial infarction; Z86.718 Personal history of other venous thrombosis and embolism; Z96.651 Presence of right artificial knee joint; Z90.49 Acquired absence of other specified parts of digestive tract; Z98.49 Cataract extraction status, unspecified eye
CPT/HCPCS: 36415; 36430; 74174; 80048; 80053; 81001; 82607; 82668; 82746; 83540; 83550; 83690; 83735; 84132; 85014; 85018; 85025; 85046; 85610; 85730; 86850; 86900; 86901; 86923; 87045; 87046; 87177; 87427; 87493; 88305; 88342; 93005; 96361; 96374; 96376; 97110; 97161; 97165; 97530; 99285; A9270; G0378; J0616; J2003; J2470; J2704; J3475; J3480; J7030; J7040; J7050; J7120; P9016; Q9967